=== PATIENT | male | born 1955 | race Caucasian/White ===

== ENCOUNTER → 2017-08-22 06:44 | Outpatient (CLI) | payer MEDICAID, SELFPAY ==
[2017-08-22 08:05] LABS: AST(SGOT) 23 U/L (15-37); Alanine Aminotransfer ALT/SGPT 34 U/L (16-61); Albumin, Serum 3.6 g/dL (3.2-5.0); Alkaline Phosphatase 121 U/L (45-117); Bilirubin, Direct 0.14 mg/dL (0.00-0.30); Cholesterol 113 mg/dL (200); Globulin 3.5 g/dL (2.2-4.2); High Density Lipoprotein 41 mg/dL; Protein, Total 7.1 g/dL (6.4-8.2); T4 Total, Thyroxin 8.7 ug/dL (4.5-12.1); Thyroid Stim Hormone (TSH) 3.04 uIU/mL (0.358-3.74); Triglycerides 151 mg/dL; Very Low Density Lipoprotein 30 mg/dL (5-40)
--- NOTE | 2017-08-22 13:27 | PFT ---
INTRODUCTION: The patient is a 62-year-old male currently under the care of Dr. Doherty the presents for pulmonary function testing secondary to a diagnosis of chest pain. Respiratory therapy reports good patient effort. Bronchodilators were used during testing. INTERPRETATION: Forced expiration spirometry demonstrates the presence of a mild large airways obstructive ventilatory defect. There was a significant bronchodilator response noted, based upon change in FEV1. Spirogram's are of good quality and do not plateau indicating slow emptying of the lungs. Body plethysmography was performed and reveals an increased TLC and RV, indicative of underlying hyperinflation and air trapping. Diffusing capacity by single breath CO is within normal limits. IMPRESSION: These pulmonary function studies demonstrate the presence of a partially reversible mild large airways obstructive ventilatory defect with associated hyperinflation and air trapping. There are no previous pulmonary function studies available for comparison.
== END ==
PROVIDERS: Visit Provider Internal Medicine Cardiovascular Disease
DX: R07.9 Chest pain, unspecified (principal); R94.31 Abnormal electrocardiogram [ECG] [EKG]; I25.3 Aneurysm of heart; F17.200 Nicotine dependence, unspecified, uncomplicated
CPT/HCPCS: 36415; 80061; 80076; 84436; 84443; 94060; 94726; 94729

== ENCOUNTER → 2017-09-23 09:38 | Outpatient (CLI) | payer MEDICAID, SELFPAY ==
--- NOTE | 2017-09-23 09:40 | STE_ITS ---
Reason For Study: CHEST PAIN Stress Results Protocol: Dobutamine Protocol Maximum Predicted HR: 157 bpm Target HR: 133 bpm% Maximum Predicted HR: 87 % DurationHeart Rate Stage (mm:ss) (bpm) BPDose BASELINE 66 126/75 STAGE 1 3:00 64 121/78 10.00 STAGE 2 3:00 10 6 136/76 20.00 STAGE 3 5:16 13 6 134/63651.00 RECOVERY 96 134/75 Stress Duration: 11:16 mm:ss Maximum Stress HR: 136 bpm Baseline Echocardiogram Findings The estimated ejection fraction is 50 %. Normal Stress Echo Wall motion Data Resting WMIntermediate WMStress WM Resting Wall Motion Wall Motion Stress No regional wall motion Anterio-Basal: Mildly abnormalities noted. hypokinetic. EKG Data Normal intervals are noted. The patient was titrated from 10 mcg to a maximun of 30 mcg of dobutamine during the stress. During dobutamine infusion, there were no ST or T wave changes noted to suggest ischemia. No clinical angina was noted. This was 89% of maximum predicted heart rate. Interpretation Summary The estimated ejection fraction is 50 %. Anterio-Basal: Mildly hypokinetic The patient was titrated from 10 mcg to a maximun of 30 mcg of dobutamine during the stress. Abnormal, adequate, dobutamine echocardiogram. Baseline global LV dysfunction with an EF of 50%. Positive for ischemia by echocardiographic criteria. Patient developed proximal mid anterior hypokinesis during infusion. This was seen in 2 views. No associated EKG changes. Appropriate blood pressure response to dobutamine. Rare PVCs noted. Final LVEF of 65%. Ordering Physician: Fabian Doherty Referring Physician: Fabian Doherty Performed By: Vinnie Valle RCS
== END ==
PROVIDERS: Visit Provider Internal Medicine Cardiovascular Disease
DX: R07.9 Chest pain, unspecified (principal); R94.31 Abnormal electrocardiogram [ECG] [EKG]; F17.200 Nicotine dependence, unspecified, uncomplicated
CPT/HCPCS: 93017; 93350; J7030; A4216

== ENCOUNTER 2017-10-06 07:02 | Day surgery (SDC) | payer MEDICAID, SELFPAY ==
--- NOTE | 2017-10-03 14:45 | RAD_ITS ---
STUDY: X-RAY CHEST REASON FOR EXAM: Male, 62 years old. Chest pain TECHNIQUE: PA and lateral views of the chest. COMPARISON: Prior study of 04/08/2015 FINDINGS: There is hyperinflation of the lungs consistent with chronic obstructive lung disease (COPD). There is no demonstrated pleural abnormality. Normal size heart. Normal mediastinum and mariluz. Normal visualized pulmonary arteries. There are calcified plaques of the aortic arch. Normal visualized thoracic spine. Normal visualized ribs, clavicles, and shoulders. There is no demonstrated abnormality of the visualized soft tissue structures of the upper abdomen. RAD/Chest PA and Lateral IMPRESSION: Findings consistent with COPD. Calcified plaques of the aortic arch. No acute cardiopulmonary disease process is seen. Chest findings are similar to the previous study. Electronically Signed: Anastacio Pérez MD at 21:07 EDT , Service support ,
[2017-10-03 16:37] LABS: Absolute Lymphocyte Count 2.18 X10^3/ul (0.83-4.51); Absolute Neutrophil Count 3.9 X10^3/uL (2.0-7.7); Basophil# 0.05 X10^3/uL; Basophil% 0.7 % (0-1); Eosinophils% 10.5 % (0-5); Hemoglobin 14.1 g/dl (13.0-16.5); Lymphocyte # 2.18 X10^3/ul (4.0); Lymphocyte % 28.5 % (19-41); Mean Corp Hgb Conc 33.6 g/gl (32-36); Mean Corpuscular Hgb 31.6 pg (27.0-32.0); Mean Corpuscular Volume 94.2 fL (80-94); Mean Platelet Vol. 10.4 fl (6.2-12.0); Monocyte# 0.66 X10^3/uL; Monocyte% 8.6 % (0-10); Neutrophil # 3.94 X10^3/uL (2.7-7.7); Neutrophil % 51.6 % (47-70); Platelet Count 254 K/mm3 (150-450); RBC Distribution Width CV 12.9 % (11.6-14.6); RBC Distribution Width SD 43.3 fl (35.1-43.9); Red Blood Count 4.46 M/mm3 (4.6-6.2); White Blood Count 7.6 K/mm3 (4.4-11.0)
[2017-10-03 16:54] LABS: POSITIVE COUNT NO; POSITIVE DIFFERENTIAL NO; POSITIVE MORPHOLOGY NO
[2017-10-03 16:55] LABS: Anion Gap 5 (5-15); BUN 10 mg/dL (7-18); BUN/Creat Ratio 11.7 RATIO (10-20); Calcium,Total 8.3 mg/dL (8.5-10.1); Chloride 108 mmol/L (98-107); Creatinine, Serum 0.86 mg/dL (0.70-1.30); EST Glomerular Filtration Rate 96 mL/min (>60); Est Glom Filt Rate - Afr Amer 116 mL/min (>60); Glucose 83 mg/dL (74-106); Potassium 3.9 mmol/L (3.5-5.1); Sodium Level 142 mmol/L (136-145)
[2017-10-03 17:09] LABS: International Normalized Ratio 1.1; Prothrombin Time (Protime)PT. 14.3 SECONDS (11.7-14.9)
[2017-10-03 17:10] LABS: Partial Thromboplast Time 32.1 Seconds (24.1-36.2)
[2017-10-04 09:05] VITALS: BMI 21.4
[2017-10-06] VITALS (21 sets, daily range): BP systolic 95–125; BP diastolic 40–78; PULSE 46–69; RESP 10–20; TEMP 36.4–36.6; O2SAT 96–100; BMI 22.4
--- NOTE | 2017-10-06 10:06 | CL.I_ITS ---
Patient Name: RADHA BRENNAN Study Date: 10/06/2017 Performing: Fabian Doherty MD Ht: 68.89 inches 175 cm : 1955 Wt: 145.51 lbs 66 kg Age: 62 Gender: male BSA: 1.8 PROCEDURE(S) PERFORMED [id number]/LV [id number] W OR WO PTCA, SINGLE CORONARY ARTERY [id number] W OR WO PTCA, EACH ADD'L ARTERY, SAME MAJOR [id number], CORONARY OR GRAFT, INITIAL VESSEL [id number], CORONARY OR GRAFT, EACH ADD'L VESSEL CLINICAL PROFILE AND CO-MORBIDITIES Indications: New Onset Angina <= 2 months, Worsening Angina, Suspected CAD Heart Failure: None Stress/Imaging Stress Echocardiogram: Yes Result: Positive Intermediate Risk Stress Echocardiogra m: Positive Intermediate Risk Angina Classification Anginal Classification w/in 2 Weeks: CCS III CAD Presentations: Unstable angina. Comorbidities/Risk Factors: Current/Recent Smoker (< 1year) Hypertension Dyslipidemia CONCLUSIONS Single vessel CAD of the LAD AND DIAG Normal LV size, wall motion,and systolic function Successful PTCA/LOPEZ of the of mid LAD after abnormal FFR of 0.82, in face of exertional angina and ab nl stress echo, using a 3.0 x 32 Promus Synergy, post dilated with a 3.0 x 12 NC balloon; 75%-->0%, n o dissection. Successful PTCA/LOPEZ of the of proximal DIAG, after abnl FFR of 0.79, utilizing a 2.5 x 16 Promus Syne rgy; 75%-->0%, no dissection. RECOMMENDATIONS Referred for immediate PCI Highly recommend quitting all tobacco products Follow up with primary almond sorter Risk factor modification ASA Indefinitley Plavix for at least 12 months Routine post interventional care Refer for Outpatient Cardiac Rehab Manual sheath removal per protocol Follow up with Dr. Doherty DESCRIPTION OF PROCEDURE The patient arrived to the procedure lab. The risks and benefits of the procedure as well as a full d escription of our services here and lack of surgical backup were fully explained to the patient and/o r their significant other prior to the catheterization. The Timeout was completed, verifying the aga ect patient and procedure. The patient's procedural site was prepped and draped in the usual fashion. Local anesthetic was given subcutaneously to right groin region with Lidocaine 2%. Using a modified Seldinger technique, arterial access was obtained via the right femoral artery, a 4Fr sheath was inse rted. Left Coronary Artery selective angiography was performed in multiple views using a 4 Fr. JL5 c atheter. Right Coronary Artery selective angiography was then performed in multiple views using a 4 F r. 3DRC catheter. Left Ventriculography was performed in AGUILAR projection using a 4 Fr. Pigtail cathete r Arterial sheath was exchanged for a 6 Fr Sheath. EBU 3.5 Guide catheter was inserted and engaged into the LCA. The FFR/iFR wire was inserted. Pressures and FFR/iFR were then recorded. FFR Ratio Baseline : 0.97 FFR Ratio post Adenosine: 0.82 universal bmw Guide wire was advanced to the LAD. 2.0 x 12 james ge Balloon catheter was inserted. Balloon catheter was advanced across lesion in the 2nd diag, proxim al PTCA balloon inflated at 8 atms for 16 secs. PTCA balloon inflated at 10 atms for 17 secs. Angiogr am performed post balloon dilatation. 2.0 x 12 emerge Balloon catheter was reinserted Balloon cathete r was advanced across lesion in the LAD, mid. PTCA balloon inflated at 6 atms for 7 secs. PTCA balloo n inflated at 8 atms for 10 secs. Angiogram performed post balloon dilatation. 3.0 x 32 Synergy Drug Eluting stent was inserted. Drug Eluting stent was advanced across the lesion in the LAD, mid. Angiog truman performed pre stent deployment. Angiogram performed post stent deployment. The FFR/iFR wire was i nserted. FFR Ratio Baseline: 0.93 FFR Ratio post Adenosine: 0.90 Guide wire was repositioned to the L AD 2.50 x 12 Emerge Balloon catheter was inserted. Balloon catheter was advanced across lesion in the second diagonal, proximal PTCA balloon inflated at 6 atms for 30 secs. PTCA balloon inflated at 6 at ms for 12 secs. Angiogram performed post balloon dilatation. 2.5 x 16 Synergy Drug Eluting stent was inserted. Drug Eluting stent was advanced across the lesion in the second diagonal, proximal Angiogra m performed pre stent deployment. 3.0 x 12 NC Emerge Balloon catheter was inserted and advanced acros s lesion in the LAD, mid. Angiogram performed post balloon dilatation. The arterial sheath was sutu red in place and capped CORONARY ANGIOGRAPHY DOMINANCE: Right Dominant LEFT HEART ASSESSMENT Left Ventricular Ejection Fraction: by LV Gram 65 % Normal Left Ventricular systolic function Normal Left Ventricular End Diastolic Pressure Normal LV wall motion LEFT MAIN: Angiographically normal LEFT ANTERIOR DECENDING ARTERY: MID LAD: 75 % Stenosis DIAGONAL 2: Proximal - 75 % Stenosis CIRCUMFLEX ARTERY: Mild luminal irregularities less than 30% RIGHT CORONARY ARTERY: Mild luminal irregularities less than 30% INTERVENTION INFORMATION LESION SITE: 2nd Diagonal (Proximal) Lesion Complexity: High/C, lesion at bifurcation: Yes, thrombus present: No, lesion length: 32 mm, cu lprit lesion: Yes Pre Stenosis: 75 % Pre intervention GOPAL flow: 3 PROCEDURE: FFR, Drug Eluting Stent with pre and post dilatation Post Stenosis: 0 % Post intervention GOPAL flow: 3 Lesion Devices: Medtronic 6 Fr EBU3.5 100cm Guide Catheter Garcia .014 BMW [place] Straight 190cm Henrique Sci EMERGE MR 2.00x12 BALLOON Henrique Sci EMERGE MR 2.50x12 BALLOON Henrique Sci Synergy MR LOPEZ 2.50x16 LESION SITE: 2nd Diagonal (Proximal) Lesion Complexity: High/C, lesion at bifurcation: Yes, thrombus present: No, lesion length: 16 mm, cu lprit lesion: No Pre Stenosis: 75 % Pre intervention GOPAL flow: 3 PROCEDURE: FFR Drug Eluting Stent with pre dilatation. Post Stenosis: 0 % Post intervention GOPAL flow: 3 Lesion Devices: Medtronic 6 Fr EBU3.5 100cm Guide Catheter Cunningham Coronary FFR Wire Garcia .014 BMW [place] Straight 190cm Henrique Sci EMERGE MR 2.00x12 BALLOON Henrique Sci Synergy MR LOPEZ 3.00x32 Henrique Sci NC EMERGE MR 3.00x12 BALLOON COMPLICATIONS No Complications PROCEDURE MEDICATIONS Versed 1 mg IV Oxygen: 2 L/min via nasal cannula Baby Aspirin (81mg) 1 Tabs PO @ 10/06/2017 07:24:57 Heparin 6000 unit(s) IV 10/06/2017 09:05:07 Nitro 200 mcg IC 10/06/2017 09:08:00 Nitro 200 mcg IC 10/06/2017 09:08:00 Nitro 200 mcg IC 10/06/2017 09:21:35 Nitro 200 mcg IC 10/06/2017 09:27:27 Nitro 200 mcg IC 10/06/2017 09:38:54 IV Bolus: .9 NaCl 800 ml total 10/06/2017 09:54:34 IV Fluids: .9 NaCl decreased to 150 ml/hr 10/06/2017 09:54:44 SUMMARY OF HEMODYNAMIC DATA Time AIR REST ECG 07:23:25 AO 111/65 (84) SA 08:53:40 LV 122/-12, 5 09:00:34 LV 111/-12, 8 09:00:44 LVp 108/-13, 5 09:00:52 AOp 109/57 (77) 09:00:57 ECG 10:01:31 Signed By Fabian Doherty MD On 10/06/2017 10:06:20 Signed By Fabian Doherty MD On 10/06/2017 10:05:41 Fabian Doherty MD
--- NOTE | 2017-10-06 11:40 | EKG12_ITS ---
Test Reason : POST STENT Blood Pressure : / mmHG Vent. Rate : 052 BPM Atrial Rate : 052 BPM P-R Int : 178 ms QRS Dur : 096 ms QT Int : 466 ms P-R-T Axes : 079 -11 065 degrees QTc Int : 433 ms Sinus bradycardia Septal infarct , age undetermined, cannot be excluded Abnormal ECG Confirmed by GORDO WOODWARD, KAYLYNN ([id number]), editor in chief newspaper GAGAN CASTANEDA ([id number]) on 10/13/2017 2:18:33 PM Referred By: Fabian Doherty Confirmed By:KAYLYNN CARO MD
[2017-10-06] MEDS: 0.9% Normal Saline 1,000 ML 150 ML IV (11:54)
--- NOTE | 2017-10-06 12:57 | CRPHASE1 ---
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 Clerk:: Fabian Doherty Surgeon:: [employer]ER Risk Factors/Lifestyle Smoking Status: Current every day smoker - 2 PPD Packs Smoked per Day: 2 Hx Hypertension: No - STATES DOES NOT HAVE Hx Diabetes Mellitus Type 1: No Hx Metabolic Disorders: No Hx Dyslipidemia: No - STATES DOES NOT HAVE Hx Obesity: No Height: 1.73 m Weight:: 67 kg BMI: 22.4 Stress: Long-standing, Home/Family - LOSS OF MOTHER, STEP MOM AND IN PAST 3 YEARS ETOH: No Family History: Heart Disease Past Cardiac Illness: Coronary Artery Disease, Myocardial Infarction Phase I Education Given On:: [place], Antiplatelet medication Medical/Surgical History [place]:: Yes Angina:: Yes CAD:: Yes Pulmonary:: Yes - COPD Diabetes:: No Hypertension:: No - DENIES Dyslipidemia:: No - DENIES Arthritis:: Yes Renal:: No Thyroid:: No PTCA:: Yes Discharge/Home/Social Eval Discharge Disposition: Home Marital Status:
--- NOTE | 2017-10-06 13:03 | CRPHASE1_ITS ---
Patient Data/Charges Former Patient:: Phase I - PHASE I CR COMPLETED Insurance #2:: [employer] Cushion Mat Maker:: Fabian Doherty Surgeon:: KHUSHBOO THACKER Risk Factors/Lifestyle Smoking Status: Current every day smoker - 2 PPD Packs Smoked per Day: 2 Hx Hypertension: No - STATES DOES NOT HAVE Hx Diabetes Mellitus Type 1: No Hx Metabolic Disorders: No Hx Dyslipidemia: No - STATES DOES NOT HAVE Hx Obesity: No Height: 1.73 m Weight:: 67 kg BMI: 22.4 Stress: Long-standing, Home/Family - LOSS OF MOTHER, STEP MOM AND IN PAST 3 YEARS ETOH: No Family History: Heart Disease Past Cardiac Illness: Coronary Artery Disease, Myocardial Infarction Phase I Education Given On:: [place], Antiplatelet medication Medical/Surgical History [place]:: Yes Angina:: Yes CAD:: Yes Pulmonary:: Yes - COPD Diabetes:: No Hypertension:: No - DENIES Dyslipidemia:: No - DENIES Arthritis:: Yes Renal:: No Thyroid:: No PTCA:: Yes Discharge/Home/Social Eval Discharge Disposition: Home Marital Status:
--- NOTE | 2017-10-06 13:03 | CRPH1.INSTRU ---
General Education CAD and cardiac anatomy and function:: Not instructed Explanation of diagnoses and procedures:: Not instructed Sign/Symptoms of ID:: Not instructed Antiplatelet therapy: Patient communicates acknowledgment - CONT PLAVIX PRESCRIBED, Family communicates acknowledgment, Needs reinforcement Proper use of NTG-SL: Not instructed Emergency procedures and activation of EMS: Patient communicates acknowledgment - INSTRUCTED TO CALL 911 IF EXPERIENCE ANY FURTHER SYMPTOMS, Needs reinforcement Compliance of all prescribed medications: Not instructed Smoking Patient Nicotine/Smoking Risk Factors Are:: Cigarettes Nicotine/Smoking Response Code:: Not instructed Dyslipidemia Dyslipidemia Response Code:: Not instructed Overweight/Obesity Patient Overweight/Obesity Risk Factors Are:: BMI Normal [18-25 & < 65 years old] Hypertension Patient Hypertension Risk Factors Are:: No documented hx of HTN - PT DENIES ANY HX OF HTN Heart Disease Patient Heart Disease Risk Factors Are:: Family history of heart disease < 65 years old, Previous cardiac event - PT STATES HE HAD A MILD HEART ATTACK IN 2007 Heart Disease Response Code:: Not instructed Diabetes Patient Diabetes Risk Factors Are:: No documented hx of diabetes Metabolic Syndrome Metabolic Syndrome Response Code:: Not instructed Sedentary Sedentary Response Code:: Not instructed Stress Stress Response Code:: Patient communicates acknowledgment, Needs reinforcement - PT SHARED HAS HAD LOSS OF SPOUSE, MOTHER AND STEP MOM IN LAST 3 YEARS
--- NOTE | 2017-10-06 13:08 | CRPH1.INST_ITS ---
General Education CAD and cardiac anatomy and function:: Not instructed Explanation of diagnoses and procedures:: Not instructed Sign/Symptoms of HI:: Not instructed Antiplatelet therapy: Patient communicates acknowledgment - CONT PLAVIX PRESCRIBED, Family communicates acknowledgment, Needs reinforcement Proper use of NTG-SL: Not instructed Emergency procedures and activation of EMS: Patient communicates acknowledgment - INSTRUCTED TO CALL 911 IF EXPERIENCE ANY FURTHER SYMPTOMS, Needs reinforcement Compliance of all prescribed medications: Not instructed Smoking Patient Nicotine/Smoking Risk Factors Are:: Cigarettes Nicotine/Smoking Response Code:: Not instructed Dyslipidemia Dyslipidemia Response Code:: Not instructed Overweight/Obesity Patient Overweight/Obesity Risk Factors Are:: BMI Normal [18-25 & < 65 years old ] Hypertension Patient Hypertension Risk Factors Are:: No documented hx of HTN - PT DENIES ANY HX OF HTN Heart Disease Patient Heart Disease Risk Factors Are:: Family history of heart disease < 65 years old, Previous cardiac event - PT STATES HE HAD A MILD HEART ATTACK IN 2007 Heart Disease Response Code:: Not instructed Diabetes Patient Diabetes Risk Factors Are:: No documented hx of diabetes Metabolic Syndrome Metabolic Syndrome Response Code:: Not instructed Sedentary Sedentary Response Code:: Not instructed Stress Stress Response Code:: Patient communicates acknowledgment, Needs reinforcement - PT SHARED HAS HAD LOSS OF SPOUSE, MOTHER AND STEP MOM IN LAST 3 YEARS
--- NOTE | 2017-10-06 17:19 | PCM.DC.CCA ---
Discharge Diet: Low fat/ Low Cholesterol Discharge Activity: Return to Normal Activity May shower in (days): 1 Lifting Restrictions: 10 pounds and also avoid any pushing or pulling for 3 days after your test. Additional Activity Instructions:: You must have someone drive you home. Do not drive until instructed by your doctor. You must have someone stay with you all night after your test. Rest in bed or on the couch until the next morning. Limit the number of times you go up and down stairs the day of your test. Call your doctor if your incision/area has: Continuous Slow Oozing, Sudden Increased Bleeding, Increased Pain/ Swelling, Increased Redness, Foul Smelling Discharge, Swelling at the incision site Call your doctor if you observe: Fever of 101 or Higher, Shortness of breath, Chest pain Remove Dressing in (days):: 1 Cleanse incision/area with: Soap & Water Additional Dressing/Incision Instructions:: Keep the dressing (bandage) on until the next morning. You may then shower, but do not take a tub bath for 5 days after your test. It is normal to have some tenderness and discomfort at the puncture site. Sometimes bruising also occurs. However, if pain, numbness, or coldness occurs below the puncture site (in your leg, toes, arms or fingers) call your doctor at once. You may have a small, marble sized knot at the puncture site. This is normal. Do not rub it. It will go away in 4-6 weeks. Bleeding can occur from the area where the puncture was done. Blood may spurt or drip from the site. If blood spurts, apply pressure right away to stop bleeding and call 911. Although rare, bleeding into the tissue (hematoma) can also occur. If this happens, a large, firm area goose egg under the skin will appear. If any of these occur, lie down as flat as you can and have someone apply firm pressure to the cath site with a gauze pad or a clean washcloth for 10-15 minutes. Call 911 or go to the Emergency Department. Additional Instructions: You will need to be on Plavix for at least one year prior to stopping. At your next office visit we will talk to you about cardiac rehab Allergies/Adverse Reactions: Allergies tuberculin, purified protein deriva Allergy (Verified 10/03/17 13:58) Swelling Medications to take at Discharge aspirin 81 mg tablet,delayed release 81 mg PO QDAY 08/01/17 atorvastatin 40 mg tablet 40 mg PO QHS tab 08/01/17 thiamine HCl (vitamin B1) 100 mg tablet 100 mg PO QDAY 08/01/17 doxepin 10 mg capsule 10 mg PO QHS 08/02/17 clopidogrel 75 mg tablet 75 mg PO QDAY #30 tab 10/03/17 levetiracetam 250 mg tablet 250 mg PO BID tab 10/03/17 Primary Care Physician: Esther Aguilar [Primary Care Provider] - Test Results: Test results from this visit will be discussed in further detail at your follow-up appointment, if applicable. Please Follow Up With: Tahir Mckee NP-C When: 10/25 at 1030 Cardiac Rehabilitation Info Cardiac Rehabilitation Program Information: Cardiac Rehabilitation is important for patients like you who are recovering from a heart problem. Cardiac rehabilitation programs are recognized as integral to the continued care of the patient with coronary heart disease. The cardiac rehabilitation program is designed to optimize a patient's physical, psychological, and social functioning. Health medicare nurse work in cardiac rehabilitation programs and assist you with getting the treatments you need to get stronger and healthier - like exercise, healthy eating habits, and medications. Cardiac rehabilitation has been show to help people with heart problems live longer and have better life enjoyment than people who do not go to cardiac rehabilitation. Please contact the Cardiac Rehabilitation Program at [facility] at in two weeks if you have not heard from them.
--- NOTE | 2017-10-06 17:22 | DCINST_ITS ---
Discharge Diet: Low fat/ Low Cholesterol Discharge Activity: Return to Normal Activity May shower in (days): 1 Lifting Restrictions: 10 pounds and also avoid any pushing or pulling for 3 days after your test. Additional Activity Instructions:: You must have someone drive you home. Do not drive until instructed by your doctor. You must have someone stay with you all night after your test. Rest in bed or on the couch until the next morning. Limit the number of times you go up and down stairs the day of your test. Call your doctor if your incision/area has: Continuous Slow Oozing, Sudden Increased Bleeding, Increased Pain/ Swelling, Increased Redness, Foul Smelling Discharge, Swelling at the incision site Call your doctor if you observe: Fever of 101 or Higher, Shortness of breath, Chest pain Remove Dressing in (days):: 1 Cleanse incision/area with: Soap & Water Additional Dressing/Incision Instructions:: Keep the dressing (bandage) on until the next morning. You may then shower, but do not take a tub bath for 5 days after your test. It is normal to have some tenderness and discomfort at the puncture site. Sometimes bruising also occurs. However, if pain, numbness, or coldness occurs below the puncture site (in your leg, toes, arms or fingers) call your doctor at once. You may have a small, marble sized knot at the puncture site. This is normal. Do not rub it. It will go away in 4-6 weeks. Bleeding can occur from the area where the puncture was done. Blood may spurt or drip from the site. If blood spurts, apply pressure right away to stop bleeding and call 911. Although rare, bleeding into the tissue (hematoma) can also occur. If this happens, a large, firm area goose egg under the skin will appear. If any of these occur, lie down as flat as you can and have someone apply firm pressure to the cath site with a gauze pad or a clean washcloth for 10-15 minutes. Call 911 or go to the Emergency Department. Additional Instructions: You will need to be on Plavix for at least one year prior to stopping. At your next office visit we will talk to you about cardiac rehab Allergies/Adverse Reactions: Allergies tuberculin, purified protein deriva Allergy (Verified 10/03/17 13:58) Swelling Medications to take at Discharge aspirin 81 mg tablet,delayed release 81 mg PO QDAY 08/01/17 atorvastatin 40 mg tablet 40 mg PO QHS tab 08/01/17 thiamine HCl (vitamin B1) 100 mg tablet 100 mg PO QDAY 08/01/17 doxepin 10 mg capsule 10 mg PO QHS 08/02/17 clopidogrel 75 mg tablet 75 mg PO QDAY #30 tab 10/03/17 levetiracetam 250 mg tablet 250 mg PO BID tab 10/03/17 Primary Care Physician: Esther Aguilar [Primary Care Provider] - Test Results: Test results from this visit will be discussed in further detail at your follow- up appointment, if applicable. Please Follow Up With: Tahir Mckee NP-C When: 10/25 at 1030 Cardiac Rehabilitation Info Cardiac Rehabilitation Program Information: Cardiac Rehabilitation is important for patients like you who are recovering from a heart problem. Cardiac rehabilitation programs are recognized as integral to the continued care of the patient with coronary heart disease. The cardiac rehabilitation program is designed to optimize a patient's physical, psychological, and social functioning. Health career development manager work in cardiac rehabilitation programs and assist you with getting the treatments you need to get stronger and healthier - like exercise, healthy eating habits, and medications. Cardiac rehabilitation has been show to help people with heart problems live longer and have better life enjoyment than people who do not go to cardiac rehabilitation. Please contact the Cardiac Rehabilitation Program at [facility] at in two weeks if you have not heard from them.
[2017-10-06] MEDS: levETIRAcetam 250 MG Tablet PO (21:59)
[2017-10-06] MEDS: Doxepin Hydrochloride 10 MG Capsule PO (21:59)
[2017-10-06] MEDS: Atorvastatin Calcium 40 MG Tablet PO (21:59)
[2017-10-07] VITALS (12 sets, daily range): BP systolic 96–161; BP diastolic 53–88; PULSE 57–69; RESP 10–16; TEMP 36.7–36.9; O2SAT 95–96
[2017-10-07 04:52] LABS: Hematocrit 39.6 % (40-54); Hemoglobin 13.2 g/dl (13.0-16.5); Mean Corp Hgb Conc 33.3 g/gl (32-36); Mean Corpuscular Hgb 31.6 pg (27.0-32.0); Mean Corpuscular Volume 94.7 fL (80-94); Mean Platelet Vol. 10.1 fl (6.2-12.0); Platelet Count 224 K/mm3 (150-450); RBC Distribution Width SD 43.9 fl (35.1-43.9); Red Blood Count 4.18 M/mm3 (4.6-6.2); Scan Indicated on CBC? Y/N NO; White Blood Count 7.1 K/mm3 (4.4-11.0)
[2017-10-07] MEDS: levETIRAcetam 250 MG Tablet PO (09:10)
[2017-10-07] MEDS: Clopidogrel Bisulfate 75 MG Tablet PO (09:10)
[2017-10-07] MEDS: Thiamine Hydrochloride 100 MG Tablet PO (09:10)
[2017-10-07] MEDS: Aspirin E.C. 81 MG Tablet PO (09:10)
--- NOTE | 2017-10-07 09:58 | PN.CARD_ITS ---
Subjectve: Patient doing very well this morning. In fact feels much better. Right groin is clean/dry/intact, no thrills, bruits or hematoma. Hemoglobin and creatinine are within nominal limits. 2+ DP PT pulses bilaterally. EKG shows normal sinus rhythm, no acute changes. Objective: Vital Signs Temp Pulse Resp BP Pulse Ox 98.4 F 60 16 161/88 H 95 10/07/17 09:36 10/07/17 09:36 10/07/17 09:36 10/07/17 09:36 10/07/17 09:36 Oxygen Flow Rate (L/min) 2 Oxygen Delivery Method Room Air Weight: 147 lb 11.355 oz Body Mass Index (BMI) 22.4 Intake and Output for Last 24 Hours 10/05/17 10/06/17 10/07/17 23:59 23:59 23:59 Intake Total 1963 / 1963 240 / 240 Output Total 1200 / 1200 525 / 525 Balance 764 / 764 -285 / -285 General: Awake, Alert, Oriented x 3 HEENT: PERRL, EOMI, Sclera Non Icteric Neck: Supple, Good ROM, No Lymph Node Enlargement Lungs: Clear to auscultation Cardiovascular: Regular Rhythm, Normal S1, Normal S2, No Murmurs, No Rubs, No Gallops Vascular: No Carotid Bruits, Normal Femoral Pulses, Normal Radial Pulses, Normal Dorsalis Pedal Pulse, Normal Posterior Tibial Pulses Abdomen: Bowel Sounds Present, Soft, Non Tender, No HSM, No Organomegaly Extremities: No Cyanosis, No Clubbing, No edema Neurological: No Focal Motor or Sensory Deficit 10/07/17 04:15: WBC 7.1, RBC 4.18 L, Hgb 13.2, Hct 39.6 L, MCV 94.7 H, MCH 31.6 , MCHC 33.3, RDW 13.0, RDW Differential 43.9, Plt Count 224, MPV 10.1 Rhythm: EKG: ECHO: Stress Test: Cardiac Cath: PCI: CT Surgery: Holter monitor: EPS: PPM: CXR: Chest CT Scan: Medical Necessity - Tobacco Use Smoking Status: Current every day smoker - 2 PPD Assessment/Plan 1. Coronary artery disease: Patient status post complex angioplasty and stenting of his mid LAD and proximal diagonal #2. Patient feels much better today. His groin is clean/dry/intact. Hemoglobin is stable. Recommend the patient continue baby aspirin, Plavix, and Lipitor. Patient's heart rate is too slow for beta blockers at this time. He will follow-up with me going forward. We will make arrangements for cardiac rehab. If his blood pressure increases we can consider Cozaar based medication. 2. Hyperlipidemia: Repeat lipid profile in 6 weeks time. His LDL should be less than 70. 3. Patient may be discharged home. Code Visit Inpatient E&M: 55919 Subs Hosp L2
--- NOTE | 2017-10-07 10:00 | EKG12_ITS ---
Test Reason : AM EKG Blood Pressure : / mmHG Vent. Rate : 063 BPM Atrial Rate : 063 BPM P-R Int : 146 ms QRS Dur : 106 ms QT Int : 452 ms P-R-T Axes : 076 -27 062 degrees QTc Int : 462 ms Normal sinus rhythm Septal infarct , age undetermined , cannot be excluded Abnormal ECG Confirmed by GORDO WOODWARD, KAYLYNN ([id number]), mapping editor GAGAN CASTANEDA ([id number]) on 10/13/2017 2:18:05 PM Referred By: Fabian Doherty Confirmed By:KAYLYNN CARO MD
[2017-10-07 22:55] LABS: Anion Gap 7 (5-15); BUN 11 mg/dL (7-18); Calcium,Total 7.7 mg/dL (8.5-10.1); Chloride 108 mmol/L (98-107); Creatinine, Serum 0.84 mg/dL (0.70-1.30); EST Glomerular Filtration Rate 97 mL/min (>60); Est Glom Filt Rate - Afr Amer 118 mL/min (>60); Glucose 92 mg/dL (74-106); Potassium 4.2 mmol/L (3.5-5.1); Sodium Level 142 mmol/L (136-145)
== END 2017-10-07 09:55 | disposition home or self-care (01) ==
LOC: CLSP 07:04 → ICU 09:47
PROVIDERS: Visit Provider Internal Medicine Cardiovascular Disease
DX: I25.10 Atherosclerotic heart disease of native coronary artery without angina pectoris (principal); E78.5 Hyperlipidemia, unspecified; I10 Essential (primary) hypertension; M54.9 Dorsalgia, unspecified; G89.29 Other chronic pain; R94.39 Abnormal result of other cardiovascular function study; R07.9 Chest pain, unspecified; F17.210 Nicotine dependence, cigarettes, uncomplicated; Z86.73 Personal history of transient ischemic attack (TIA), and cerebral infarction without residual deficits
CPT/HCPCS: 36415; 71046; 80048; 85025; 85027; 85610; 85730; 92928; 92929; 93005; 93458; 93571; 93572; 99152; 99153; J0153; J7030; J7040; C1725; C1769; C1874; C1887; C1894; C9600; C9601; Q9967

== ENCOUNTER → 2018-01-13 13:43 | Outpatient (CLI) | payer MEDICAID, SELFPAY ==
[2017-10-06 13:03] VITALS: BMI 22.4
--- NOTE | 2018-01-13 13:47 | RAD_ITS ---
STUDY: X-RAY - LUMBAR SPINE REASON FOR EXAM: Male, 62 years old. LBP RADIATES INTO LEFT LEG, RECENT STROKE, RECENT STENTS, RECENT SEIZURES, HX FALL TECHNIQUE: 3 view(s) of the lumbar spine were obtained. COMPARISON: None FINDINGS: Normal lumbar lordosis. There is no substantial scoliosis. There is a normal alignment of the vertebrae. There is multilevel endplate spondylosis of the lumbar vertebrae. There is multi-level degenerative disc disease with multi-level disc space narrowing. There are atherosclerotic vascular calcifications. The soft tissue structures are unremarkable. RAD/Lumbar Spine 2 or 3 Views IMPRESSION: Degenerative changes of the spine, as detailed above. Electronically Signed: Aubrey Adams MD at 22:01 EDT , Service support ,
--- NOTE | 2018-01-13 13:47 | RAD_ITS ---
STUDY: X-RAY - SACRUM/COCCYX REASON FOR EXAM: Male, 62 years old. LBP RADIATES INTO LEFT LEG, RECENT STROKE, RECENT STENTS, RECENT SEIZURES, HX FALL TECHNIQUE: 3 view(s) of the sacrum and coccyx were obtained. COMPARISON: None. FINDINGS: Normal bilateral sacroiliac joints. Normal visualized sacral ala and fused sacral bodies. Normal sacrococcygeal junction with a normal angulation. Normal coccygeal segments. The presacral soft tissue structures are unremarkable. RAD/Sacrum-Coccyx min 2 Views IMPRESSION: Normal x-rays of the sacrum and coccyx. Electronically Signed: Aubrey Adams MD at 22:01 EDT , Service support ,
== END ==
PROVIDERS: Referring Provider Nurse Practitioner Family; Visit Provider Nurse Practitioner Family
DX: M54.5 Low back pain (principal)
CPT/HCPCS: 72100; 72220

== ENCOUNTER 2018-01-23 22:00 | Observation (INO) | payer MEDICAID, SELFPAY ==
[2017-10-06 13:03] VITALS: BMI 22.4
[2018-01-23 22:01] VITALS: BP 104/56; PULSE 58; RESP 17; TEMP 36.8; O2SAT 99; BMI 22.4
--- NOTE | 2018-01-23 22:03 | ED.RN ---
CALLED FOR EKG PER RN REQUEST, PULLED OLD EKGS FOR
--- NOTE | 2018-01-23 22:06 | EKG12_ITS ---
Test Reason : CP Blood Pressure : / mmHG Vent. Rate : 062 BPM Atrial Rate : 062 BPM P-R Int : 152 ms QRS Dur : 100 ms QT Int : 408 ms P-R-T Axes : 079 032 069 degrees QTc Int : 414 ms Normal sinus rhythm Septal infarct , age undetermined Abnormal ECG Confirmed by GORDO WOODWARD, KAYLYNN ([id number]), loan expeditor GAGAN CASTANEDA ([id number]) on 01/25/2018 1:30:38 PM Referred By: Barbara Kimball Confirmed By:KAYLYNN CARO MD
[2018-01-23 22:09] VITALS: O2SAT 97
--- NOTE | 2018-01-23 22:10 | RAD_ITS ---
STUDY: X-RAY CHEST REASON FOR EXAM: Male, 62 years old. Left chest pain, shortness of breath TECHNIQUE: Frontal views of the chest were obtained. COMPARISON: October 03, 2017 FINDINGS: The lungs are hyperinflated. There is a stable calcified granuloma in the right lung apex. There are no focal airspace opacities. There is no demonstrated pleural abnormality. The cardiac silhouette is normal in size. The mediastinum and hilar regions are unremarkable. Normal visualized pulmonary arteries. Normal visualized aortic arch and descending thoracic aorta. There is mild scoliosis of the visualized spine. The visualized ribs, clavicles, and shoulders are unremarkable. There is no demonstrated abnormality of the visualized upper abdomen. RAD/Chest 1 View (Portable) IMPRESSION: No acute cardiopulmonary abnormalities. There is stable COPD. Electronically Signed: Nina Lam MD at 22:46 EDT Tel Direct: [phone], Service support ,
[2018-01-23 22:20] LABS: Absolute Lymphocyte Count 2.55 X10^3/ul (0.83-4.51); Absolute Neutrophil Count 3.8 X10^3/uL (2.0-7.7); Basophil# 0.02 X10^3/uL; Basophil% 0.3 % (0-1); Hematocrit 39.6 % (40-54); Hemoglobin 13.2 g/dl (13.0-16.5); Lymphocyte # 2.55 X10^3/ul (4.0); Mean Corp Hgb Conc 33.3 g/gl (32-36); Mean Corpuscular Hgb 31.1 pg (27.0-32.0); Mean Corpuscular Volume 93.2 fL (80-94); Mean Platelet Vol. 9.9 fl (6.2-12.0); Monocyte# 0.82 X10^3/uL; Monocyte% 10.9 % (0-10); Neutrophil % 50.7 % (47-70); Platelet Count 241 K/mm3 (150-450); RBC Distribution Width CV 13.5 % (11.6-14.6); RBC Distribution Width SD 45.8 fl (35.1-43.9); Red Blood Count 4.25 M/mm3 (4.6-6.2); White Blood Count 7.5 K/mm3 (4.4-11.0)
[2018-01-23 22:24] LABS: POSITIVE COUNT NO; POSITIVE DIFFERENTIAL NO; POSITIVE MORPHOLOGY NO
[2018-01-23 22:40] LABS: Anion Gap 11 (5-15); BUN 17 mg/dL (7-18); BUN/Creat Ratio 17.2 RATIO (10-20); Calcium,Total 8.6 mg/dL (8.5-10.1); Chloride 105 mmol/L (98-107); Creatinine, Serum 0.99 mg/dL (0.70-1.30); EST Glomerular Filtration Rate 81 mL/min (>60); Est Glom Filt Rate - Afr Amer 98 mL/min (>60); Estimated Creatinine Clearance 72.16 ml/min; Glucose 94 mg/dL (74-106); Potassium 3.6 mmol/L (3.5-5.1); Sodium Level 140 mmol/L (136-145)
--- NOTE | 2018-01-23 23:05 | ED.VISSUMM ---
- ER Visit Summary Date of Service: 01/23/18 Chief Complaint: Chest pain History of Present Illness: The patient is a 62 M history of CAD with 3 cardiac stents in October of this year. Prior CVA and seizures. Patient states after his cardiac stents in October has been doing well. He has had very limited chest pain. Tonight around 20 1:10 PM he had a 20-minute episode of left-sided chest pain radiating down his left arm. He was brought in by squad who gave him 4 baby aspirin and 1 sublingual nitro that completely resolved his pain. Currently he states he is pain-free. He denies any leg pain or swelling. No history of DVT or PEs. He is on both Plavix and aspirin. Physical Examination: Well-appearing male. Vital signs are stable afebrile. Pulse ox 9 9% on 2 L no hypoxia. H EENT exam unremarkable. Neck nontender. Lungs clear to auscultation bilaterally. Chest wall nontender. Heart regular rate and rhythm no murmur. Cords. Neurologically is awake and alert with no focal motor deficits. Test Results: CBC normal. White count of 7. Hemoglobin 13. Electrolytes unremarkable. Normal gap and creatinine. Troponin normal. EKG sinus rhythm rate of 62 with no acute signs of [place] nor ischemia. Unchanged from September of this year. Chest x-ray portable one view shows no acute abnormality. Emergency Department Course and Treatment: On repeat exam the patient is doing well at 2302. He remains pain-free and symptom-free after the sublingual nitro by squad. Due to his history and recent stents in light that this is worsening pain in these had and similar to his prior cardiac pain I will speak to the hospitalist about overnight observation and repeat troponin. Treatment Plan: Observation admission for hospitalist. Disposition: Observation Impression: Acute chest pain of uncertain etiology resolved by nitroglycerin History of CAD with 3 cardiac stents This note was generated with [employer] dictation software. It may contain incorrect words, spelling, and punctuation that were not noted in review of the chart prior to signing ED Disposition - Plan for ED Patient: Chief Complaint: Chest Pain Referrals: [facility],Esther Trotter [Primary Care Provider] -
--- NOTE | 2018-01-23 23:06 | HP.PCM_ITS ---
Problem List (1) Chest pain Status: Acute Qualifiers: Chest pain type: unspecified Qualified Code(s): R07.9 - Chest pain, unspecified (2) Abnormal electrocardiogram Status: Chronic History of Present Illness Date of Admission: 01/23/18 Chief Complaint: Chest pain The patient is a 62 year old M with a significant history of CVA; epilepsy; CAD with stents placed in October 2017 and on dual antiplatelet therapy who presents with left-sided progressively worsening excruciating stabbing chest pain a few hours to his admission. His chest pain radiates to his left arm. Also he had numbness and tingling in fingers of his bilateral hands. Further he reported lightheadedness. His chest pain started while he was making coffee for his son. Patient was brought in by paramedics. In route to the emergency department paramedics gave patient nitroglycerin and aspirin which completely took his pain away. He denies any nausea, vomiting or diaphoresis. He reports that he felt very warm with team. EKG did not show any changes from previous EKG in October. His initial troponin was negative. Past Medical History Past Medical History (Chronic Problems): Chronic Problems (Last Reviewed 01/23/18 @ 23:43 by Gregorio Bingham MD) Hyperlipidemia (Chronic) Atherosclerotic heart disease of [place] coronary artery without angina pectoris (Chronic) 3.0 X 32 mm Synergy LOPEZ to mid LAD; 2.5 x 16 MM Synergy LOPEZ to second diagonal per Dr. Doherty @ [facility] Stented coronary artery (Chronic 10/06/17) 3.0 X 32 mm Synergy LOPEZ to mid LAD; 2.5 x 16 MM Synergy LOPEZ to second diagonal per Dr. Doherty @ [facility] Abnormal stress echo (Chronic) Atrial septal aneurysm (Chronic) Abnormal electrocardiogram (Chronic) Nicotine dependence (Chronic) Medical History: Medical History (Last Reviewed 01/23/18 @ 23:43 by Gregorio Bingham MD) Atherosclerotic heart disease of [place] coronary artery without angina pectoris (Chronic) I25.10 3.0 X 32 mm Synergy LOPEZ to mid LAD; 2.5 x 16 MM Synergy LOPEZ to second diagonal per Dr. Doherty @ [facility] Abnormal stress echo (Chronic) R94.39 Chest pain (Acute) R07.9 Atrial septal aneurysm (Chronic) I25.3 Abnormal electrocardiogram (Acute) R94.31 Nicotine dependence (Chronic) F17.200 CVA (cerebral vascular accident) I63.9 MCA Infarct Chronic back pain M54.9, G89.29 Seizure R56.9 Allergies tuberculin, purified protein deriva Allergy (Verified 01/23/18 22:01) Swelling bumble bee stings Allergy (Severe, Uncoded 01/23/18 22:01) Anaphylaxis Home Medications: Ambulatory Orders Medication Instructions Recorded aspirin 81 mg tablet,delayed 81 mg PO QDAY 08/01/17 release atorvastatin 40 mg tablet 40 mg PO QHS tab 08/01/17 thiamine HCl (vitamin B1) 100 mg 100 mg PO QDAY 08/01/17 tablet doxepin 10 mg capsule 10 mg PO QHS 08/02/17 clopidogrel 75 mg tablet 75 mg PO QDAY #30 tab 10/03/17 levetiracetam 250 mg tablet 250 mg PO BID tab 10/03/17 Surgical History: Surgical History (Last Reviewed 01/23/18 @ 23:07 by Gregorio Bingham MD) Stented coronary artery (Chronic) Onset Date: 10/06/17 Z95.5 3.0 X 32 mm Synergy LOPEZ to mid LAD; 2.5 x 16 MM Synergy LOPEZ to second diagonal per Dr. Doherty @ [facility] History of lumbar puncture Onset Date: ~04/2017 Z98.890 finger surgery lymph node resection Surgical History: no surgical history Lives: With Family Smoking Status: Current every day smoker - *Family History Maternal Family History: Family History (Last Reviewed 01/24/18 @ 00:10 by Gregorio Bingham MD) Mother Myocardial infarction Brother Myocardial infarction History Items: - - mother with different types of cancer Paternal Family History: Family History (Last Reviewed 01/24/18 @ 00:10 by Gregorio Bingham MD) Mother Myocardial infarction Brother Myocardial infarction History Items: - - pneumonia and lung cancer Review of Systems Constitutional: Denies: Chills, Fever, Weight Change HEENT: Denies: Head Aches, Sinus Congestion, Sinus Drainage Cardiovascular: Reports: Chest Pain, Light Headedness. Denies: Palpitations Respiratory: Denies: Cough, Shortness of breath at rest, Sputum production Gastrointestinal: Denies: Abdominal Pain, Nausea, Vomiting Genitourinary: Denies: Dysuria Musculoskeletal: Reports: Arm Pain, Hand Pain. Denies: Joint Pain, Joint Tenderness Skin: Denies: Rash, Wounds Neurological: Reports: Numbness - Bilateral arms, Tingling - Bilateral arms. Denies: Focal weakness Psychiatric: Denies: Anxiety, Depression, Homicidal Ideations, Suicidal Ideations Hematologic/ Lymphatic: Denies: Easy Bruising, Easy Bleeding VTE Information - Inpt Only VTE Present on Admission: No VTE Mechan Device Prophylaxis: None VTE Pharm Prophylaxis ordered?: Yes - Physical Exam General: Alert, Oriented x3, Cooperative HEENT: Atraumatic, PERRLA, EOMI, Normocephalic Neck: Supple, No JVD, Negative Carotid Bruits Lungs: Clear to auscultation, Normal air movement Cardiovascular: No murmurs, Bradycardic - Mild Abdomen: Bowel Sounds Present, Soft, Non Tender Extremities: No edema, Capillary Refill Less than 3 Seconds Skin: No rashes, No breakdown Musculoskeletal: No Tenderness to Palpation of Joints or Extremities Neurological: Cranial nerves II-XII grossly intact Psych/Mental Status: Normal Affect, Appropriate Vital Signs Temp Pulse Resp BP Pulse Ox 98.3 F 58 L 17 104/56 L 97 01/23/18 22:01 01/23/18 22:01 01/23/18 22:01 01/23/18 22:01 01/23/18 22:09 Oxygen Flow Rate (L/min) 2 Oxygen Delivery Method Nasal Cannula Weight: 66.8 kg Body Mass Index (BMI) 22.4 Laboratory Tests Past 24 Hrs 01/23/18 01/23/18 22:05 22:05 WBC 7.5 RBC 4.25 L Hgb 13.2 Hct 39.6 L MCV 93.2 MCH 31.1 MCHC 33.3 RDW 13.5 RDW Differential 45.8 H Plt Count 241 MPV 9.9 Immature Gran % (Auto) 0.100 Neut % (Auto) 50.7 Lymph % (Auto) 34.0 [place] % (Auto) 10.9 H Eos % (Auto) 4.0 Baso % (Auto) 0.3 Absolute Neuts (auto) 3.8 Absolute Lymphs (auto) 2.55 Total Counted Not Reportable Sodium 140 Potassium 3.6 Chloride 105 Carbon Dioxide 24.0 Anion Gap 11 BUN 17 Creatinine 0.99 Estim Creat Clear Calc 72.16 Est GFR (MDRD) Af Amer 98 Est GFR (MDRD) Non-Af 81 BUN/Creatinine Ratio 17.2 Glucose 94 Calcium 8.6 Troponin I < 0.015 Assessment/Plan All Active Problems (Last Reviewed 01/23/18 @ 23:43 by Gregorio Bingham MD) Chest pain (Acute) The patient is a 62 year old M with a significant history of CVA; epilepsy; CAD with stents placed in October 2017 and on dual antiplatelet therapy who presents typical chest pain. Chest pain Admit to a monitored bed on PCU CXR independently reviewed confirms no acute cardiopulmonary disease but noted to have hyperinflation EKG independently reveiwed confirms no acute changes from his EKG in October. Received aspirin 324 mg by the paramedics ASA 81 mg p.o. daily Home Plavix and high intensity statin continued SL NTG 0.4 mg prn as needed for chest pain Serial cardiac enzymes Stat EKG as needed for chest pain Discussed this case with Dr. Doherty. Dr. Doherty recommended a dobutamine echo and to consult cardiology if dobutamine echo is positive. Patient placed n.p.o. Epilepsy Home Keppra continued Depression Doxepin continued Tobacco abuse Counselled Inpatient consult smoking cessation Nicotine patch ordered. DVT prophylaxis Subcutaneous heparin Patient with previous history of alcoholism. He denies any heavy alcohol use at this time. However patient is on thiamine which was continued. Code Visit OBSV E&M: 91623 Initial observation care L3
--- NOTE | 2018-01-23 23:08 | ED.DCSUM_ITS ---
- ER Visit Summary Date of Service: 01/23/18 Chief Complaint: Chest pain History of Present Illness: The patient is a 62 M history of CAD with 3 cardiac stents in October of this year. Prior CVA and seizures. Patient states after his cardiac stents in October has been doing well. He has had very limited chest pain. Tonight around 20 1:10 PM he had a 20-minute episode of left-sided chest pain radiating down his left arm. He was brought in by squad who gave him 4 baby aspirin and 1 sublingual nitro that completely resolved his pain. Currently he states he is pain-free. He denies any leg pain or swelling. No history of DVT or PEs. He is on both Plavix and aspirin. Physical Examination: Well-appearing male. Vital signs are stable afebrile. Pulse ox 9 9% on 2 L no hypoxia. H EENT exam unremarkable. Neck nontender. Lungs clear to auscultation bilaterally. Chest wall nontender. Heart regular rate and rhythm no murmur. Cords. Neurologically is awake and alert with no focal motor deficits. Test Results: CBC normal. White count of 7. Hemoglobin 13. Electrolytes unremarkable. Normal gap and creatinine. Troponin normal. EKG sinus rhythm rate of 62 with no acute signs of CT nor ischemia. Unchanged from September of this year. Chest x-ray portable one view shows no acute abnormality. Emergency Department Course and Treatment: On repeat exam the patient is doing well at 2302. He remains pain-free and symptom-free after the sublingual nitro by squad. Due to his history and recent stents in light that this is worsening pain in these had and similar to his prior cardiac pain I will speak to the hospitalist about overnight observation and repeat troponin. Treatment Plan: Observation admission for hospitalist. Disposition: Observation Impression: Acute chest pain of uncertain etiology resolved by nitroglycerin History of CAD with 3 cardiac stents This note was generated with [employer] dictation software. It may contain incorrect words, spelling, and punctuation that were not noted in review of the chart prior to signing ED Disposition - Plan for ED Patient: Chief Complaint: Chest Pain Referrals: [facility],Esther Trotter [Primary Care Provider] -
[2018-01-23 23:10] VITALS: BP 101/60; PULSE 58; RESP 16; O2SAT 99
[2018-01-24] VITALS (11 sets, daily range): BP systolic 102–108; BP diastolic 47–66; PULSE 53–102; RESP 16–18; TEMP 36.3–36.8; O2SAT 94–99; BMI 20.8
--- NOTE | 2018-01-24 00:14 | EKG12_ITS ---
Test Reason : CP ADMISSION Blood Pressure : / mmHG Vent. Rate : 054 BPM Atrial Rate : 054 BPM P-R Int : 158 ms QRS Dur : 100 ms QT Int : 456 ms P-R-T Axes : 077 014 070 degrees QTc Int : 432 ms Sinus bradycardia Septal infarct (cited on or before 08-APR-2015) Abnormal ECG When compared with ECG of 07-OCT-2017 05:11, Questionable change in initial forces of Septal leads Confirmed by ANASTACIO COUCH ([id number]), editor house organ GAGAN CASTANEDA ([id number]) on 01/31/2018 11:43:23 AM Referred By: Barbara Kimball Confirmed By:ANASTACIO COUCH
--- NOTE | 2018-01-24 04:00 | EKG12_ITS ---
Test Reason : AM EKG Blood Pressure : / mmHG Vent. Rate : 062 BPM Atrial Rate : 062 BPM P-R Int : 156 ms QRS Dur : 102 ms QT Int : 440 ms P-R-T Axes : 079 046 072 degrees QTc Int : 446 ms Normal sinus rhythm Septal infarct , age undetermined Abnormal ECG When compared with ECG of 24-JAN-2018 00:20, MANUAL COMPARISON REQUIRED, DATA IS UNCONFIRMED Confirmed by ANASTACIO COUCH ([id number]), acquisitions editor GAGAN CASTANEDA ([id number]) on 01/31/2018 11:43:35 AM Referred By: Barbara Kimball Confirmed By:ANASTACIO COUCH
[2018-01-24 04:35] LABS: Hematocrit 40.1 % (40-54); Hemoglobin 13.3 g/dl (13.0-16.5); Mean Corp Hgb Conc 33.2 g/gl (32-36); Mean Corpuscular Hgb 31.4 pg (27.0-32.0); Mean Corpuscular Volume 94.8 fL (80-94); Mean Platelet Vol. 9.6 fl (6.2-12.0); Platelet Count 220 K/mm3 (150-450); RBC Distribution Width CV 13.6 % (11.6-14.6); RBC Distribution Width SD 46.7 fl (35.1-43.9); Red Blood Count 4.23 M/mm3 (4.6-6.2); White Blood Count 5.9 K/mm3 (4.4-11.0)
[2018-01-24 04:42] LABS: International Normalized Ratio 1.1; Prothrombin Time (Protime)PT. 14.2 SECONDS (11.7-14.9)
[2018-01-24 04:43] LABS: Partial Thromboplast Time 30.8 Seconds (24.1-36.2)
[2018-01-24 04:51] LABS: Scan Indicated on CBC? Y/N NO
[2018-01-24 05:02] LABS: Anion Gap 7 (5-15); BUN 16 mg/dL (7-18); BUN/Creat Ratio 18.2 RATIO (10-20); Calcium,Total 8.4 mg/dL (8.5-10.1); Chloride 105 mmol/L (98-107); Creatinine, Serum 0.88 mg/dL (0.70-1.30); EST Glomerular Filtration Rate 93 mL/min (>60); Est Glom Filt Rate - Afr Amer 113 mL/min (>60); Estimated Creatinine Clearance 75.47 ml/min; Glucose 90 mg/dL (74-106); Potassium 3.9 mmol/L (3.5-5.1); Sodium Level 140 mmol/L (136-145)
[2018-01-24] MEDS: Clopidogrel Bisulfate 75 MG Tablet PO (05:55)
[2018-01-24] MEDS: Aspirin E.C. 81 MG Tablet PO (05:55)
--- NOTE | 2018-01-24 08:00 | STEWCON_ITS ---
Reason For Study: CHEST PAIN Stress Results Protocol: Dobutamine Protocol Maximum Predicted HR: 157 bpm Target HR: 133 bpm% Maximum Predicted HR: 87 % DurationHeart Rate Stage (mm:ss) (bpm) BPDos e BASELINE 66 121/65 STAGE 1 3:00 67 100/4310.00 STAGE 2 3:00 10 0 123/6220.00 STAGE 3 3:00 12 5 .00 Stage 5 2:43 13 6 108/5840.00 RECOVERY 96 113/60 Stress Duration: 11:43 mm:ss Maximum Stress HR: 136 bpm Baseline Echocardiogram Findings The estimated ejection fraction is 55 %. Stress Echo Wall motion Data Resting WMIntermediate WMStress WM Resting Wall Motion Wall Motion Stress Basal anteroseptal: Mildly No regional wall motion hypokinetic. abnormalities noted. Mid-Anterior : Mildly hypokinetic. EKG Data The baseline ECG displays normal sinus rhythm. The patient was titrated from 10 mcg to a maximum of 40 mcg of dobutamine during the stress. The maximum heart rate attained was 176 beats per minute. This was 112% of maximum predicted heart rate. During dobutamine infusion, there were no ST or T wave changes noted to suggest ischemia. No clinical angina was noted. No arrhythmias noted. Interpretation Summary The estimated ejection fraction is 55 %. Normal, adequate, dobutamine echocardiogram. Negative for ischemia by EKG and echocardiographic criteria. No anginal symptoms noted. No arrhythmias noted. Appropriate blood pressure response to dobutamine. Final LVEF is 75%. Test terminated due to the attainment of target heart rate. Ordering Physician: Gregorio Bingham Referring Physician: Barbara Kimball Performed By: Vinnie Valle RCS
[2018-01-24] MEDS: levETIRAcetam 250 MG Tablet PO (10:52)
[2018-01-24] MEDS: Thiamine Hydrochloride 100 MG Tablet PO (10:53)
--- NOTE | 2018-01-24 15:42 | DCINST_ITS ---
You will use the following diet at home:: Cardiac Your food should be the consistency of: Regular Discharge Activity: Return to Normal Activity Call your doctor if you observe: Shortness of breath, Dizziness, Chest pain Allergies/Adverse Reactions: Allergies tuberculin, purified protein deriva Allergy (Verified 01/23/18 22:01) Swelling bumble bee stings Allergy (Severe, Uncoded 01/23/18 22:01) Anaphylaxis Medications to take at Discharge aspirin 81 mg tablet,delayed release 81 mg PO QDAY 08/01/17 atorvastatin 40 mg tablet 40 mg PO QHS tab 08/01/17 thiamine HCl (vitamin B1) 100 mg tablet 100 mg PO QDAY 08/01/17 doxepin 10 mg capsule 10 mg PO QHS 08/02/17 clopidogrel 75 mg tablet 75 mg PO QDAY #30 tab 10/03/17 levetiracetam 250 mg tablet 250 mg PO BID tab 10/03/17 Primary Care Physician: Esther Aguilar [Primary Care Provider] - Test Results: Test results from this visit will be discussed in further detail at your follow- up appointment, if applicable.
--- NOTE | 2018-01-24 15:43 | PCM.DC.SUM ---
Discharge Date and Diagnosis Date of Admission: 01/23/18 Date of Discharge: 01/24/18 - Primary Discharge Diagnosis Chest pain, noncardiac - Secondary Discharge Diagnosis Chronic Problems (Last Reviewed 01/23/18 @ 23:43 by Gregorio Bingham MD) Hyperlipidemia (Chronic) Atherosclerotic heart disease of [place] coronary artery without angina pectoris (Chronic) 3.0 X 32 mm Synergy LOPEZ to mid LAD; 2.5 x 16 MM Synergy LOPEZ to second diagonal per Dr. Doherty @ [facility] Stented coronary artery (Chronic 10/06/17) 3.0 X 32 mm Synergy LOPEZ to mid LAD; 2.5 x 16 MM Synergy LOPEZ to second diagonal per Dr. Doherty @ [facility] Abnormal stress echo (Chronic) Atrial septal aneurysm (Chronic) Abnormal electrocardiogram (Chronic) Nicotine dependence (Chronic) Hospital Course and Treatment Imaging Results: 01/24/18 08:00 Stress Test Echo w/o Contrast [ECHO] Routine Operations: None Procedures: None Summary of Care Provided: The patient is a 62 year old M with a history of CVA without residual deficits, seizure disorder, CAD with stents (2018, on dual antiplatelet therapy), tobacco use and chronic back pain who was admitted for chest pain. Cardiac enzymes and EKGs were unremarkable. Patient underwent a Cardiolite stress test which showed no evidence of reversible ischemia. He had no further episodes of chest pain. Patient was otherwise doing well was stable and ready for discharge and had met maximal hospital benefit. Patient states that he is scheduled to follow-up with his admin prog coord, Dr. Doherty next month. - Physical Exam General: Alert, Oriented x3, Cooperative HEENT: Normocephalic Neck: Supple, No JVD Lungs: Clear to auscultation, Normal air movement Cardiovascular: Regular rate, No murmurs Abdomen: Bowel Sounds Present, Soft, Non Tender Extremities: No edema - No lower extremity edema, no calf tenderness., Capillary Refill Less than 3 Seconds Skin: No rashes, No breakdown Musculoskeletal: No Tenderness to Palpation of Joints or Extremities Neurological: Cranial nerves II-XII grossly intact Psych/Mental Status: Normal Affect, Appropriate Vital Signs Temp Pulse Resp BP Pulse Ox 97.3 F L 78 18 108/47 L 97 01/24/18 14:25 01/24/18 14:25 01/24/18 14:25 01/24/18 14:25 01/24/18 14:25 Oxygen Flow Rate (L/min) 2 Oxygen Delivery Method Room Air Weight: 62.1 kg Body Mass Index (BMI) 20.8 Intake and Output for Last 24 Hours 01/22/18 01/23/18 01/24/18 23:59 23:59 23:59 Intake Total 500 / 500 Output Total 300 / 300 Balance 200 / 200 Laboratory Tests Past 24 Hrs 01/23/18 01/23/18 01/24/18 22:05 22:05 01:11 WBC 7.5 RBC 4.25 L Hgb 13.2 Hct 39.6 L MCV 93.2 MCH 31.1 MCHC 33.3 RDW 13.5 RDW Differential 45.8 H Plt Count 241 MPV 9.9 Immature Gran % (Auto) 0.100 Neut % (Auto) 50.7 Lymph % (Auto) 34.0 [place] % (Auto) 10.9 H Eos % (Auto) 4.0 Baso % (Auto) 0.3 Absolute Neuts (auto) 3.8 Absolute Lymphs (auto) 2.55 Total Counted Not Reportable PT INR APTT Sodium 140 Potassium 3.6 Chloride 105 Carbon Dioxide 24.0 Anion Gap 11 BUN 17 Creatinine 0.99 Estim Creat Clear Calc 72.16 Est GFR (MDRD) Af Amer 98 Est GFR (MDRD) Non-Af 81 BUN/Creatinine Ratio 17.2 Glucose 94 Calcium 8.6 Troponin I < 0.015 < 0.015 01/24/18 01/24/18 01/24/18 04:26 04:26 04:26 WBC 5.9 RBC 4.23 L Hgb 13.3 Hct 40.1 MCV 94.8 H MCH 31.4 MCHC 33.2 RDW 13.6 RDW Differential 46.7 H Plt Count 220 MPV 9.6 Immature Gran % (Auto) Neut % (Auto) Lymph % (Auto) [place] % (Auto) Eos % (Auto) Baso % (Auto) Absolute Neuts (auto) Absolute Lymphs (auto) Total Counted PT 14.2 INR 1.1 APTT 30.8 Sodium 140 Potassium 3.9 Chloride 105 Carbon Dioxide 28.0 Anion Gap 7 BUN 16 Creatinine 0.88 Estim Creat Clear Calc 75.47 Est GFR (MDRD) Af Amer 113 Est GFR (MDRD) Non-Af 93 BUN/Creatinine Ratio 18.2 Glucose 90 Calcium 8.4 L Troponin I < 0.015 Discharge Diet: No Restrictions Discharge Activity: Return to Normal Activity May resume sexual activity in: No Restrictions Call your doctor if you observe: Shortness of breath, Dizziness, Chest pain Home Medications: Medications to take at Discharge aspirin 81 mg tablet,delayed release 81 mg PO QDAY 08/01/17 atorvastatin 40 mg tablet 40 mg PO QHS tab 08/01/17 thiamine HCl (vitamin B1) 100 mg tablet 100 mg PO QDAY 08/01/17 doxepin 10 mg capsule 10 mg PO QHS 08/02/17 clopidogrel 75 mg tablet 75 mg PO QDAY #30 tab 10/03/17 levetiracetam 250 mg tablet 250 mg PO BID tab 10/03/17 Primary Care Physician: Esther Aguilar [Primary Care Provider] - Disposition: Home Patient Condition:: Good Medical Necessity - Tobacco Use Smoking Status: Current every day smoker Meaningful Use Info Meaningful Use Diagnoses (Choose all that apply): None applicable Code Visit Inpatient E&M: 36804 Disch Hosp
--- NOTE | 2018-01-24 15:54 | DS.PCM_ITS ---
Discharge Date and Diagnosis Date of Admission: 01/23/18 Date of Discharge: 01/24/18 - Primary Discharge Diagnosis Chest pain, noncardiac - Secondary Discharge Diagnosis Chronic Problems (Last Reviewed 01/23/18 @ 23:43 by Gregorio Bingham MD) Hyperlipidemia (Chronic) Atherosclerotic heart disease of [place] coronary artery without angina pectoris (Chronic) 3.0 X 32 mm Synergy LOPEZ to mid LAD; 2.5 x 16 MM Synergy LOPEZ to second diagonal per Dr. Doherty @ [facility] Stented coronary artery (Chronic 10/06/17) 3.0 X 32 mm Synergy LOPEZ to mid LAD; 2.5 x 16 MM Synergy LOPEZ to second diagonal per Dr. Doherty @ [facility] Abnormal stress echo (Chronic) Atrial septal aneurysm (Chronic) Abnormal electrocardiogram (Chronic) Nicotine dependence (Chronic) Hospital Course and Treatment Imaging Results: 01/24/18 08:00 Stress Test Echo w/o Contrast [ECHO] Routine Operations: None Procedures: None Summary of Care Provided: The patient is a 62 year old M with a history of CVA without residual deficits, seizure disorder, CAD with stents (2018, on dual antiplatelet therapy), tobacco use and chronic back pain who was admitted for chest pain. Cardiac enzymes and EKGs were unremarkable. Patient underwent a Cardiolite stress test which showed no evidence of reversible ischemia. He had no further episodes of chest pain. Patient was otherwise doing well was stable and ready for discharge and had met maximal hospital benefit. 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 Doherty next month. - Physical Exam General: Alert, Oriented x3, Cooperative HEENT: Normocephalic Neck: Supple, No JVD Lungs: Clear to auscultation, Normal air movement Cardiovascular: Regular rate, No murmurs Abdomen: Bowel Sounds Present, Soft, Non Tender Extremities: No edema - No lower extremity edema, no calf tenderness., Capillary Refill Less than 3 Seconds Skin: No rashes, No breakdown Musculoskeletal: No Tenderness to Palpation of Joints or Extremities Neurological: Cranial nerves II-XII grossly intact Psych/Mental Status: Normal Affect, Appropriate Vital Signs Temp Pulse Resp BP Pulse Ox 97.3 F L 78 18 108/47 L 97 01/24/18 14:25 01/24/18 14:25 01/24/18 14:25 01/24/18 14:25 01/24/18 14:25 Oxygen Flow Rate (L/min) 2 Oxygen Delivery Method Room Air Weight: 62.1 kg Body Mass Index (BMI) 20.8 Intake and Output for Last 24 Hours 01/22/18 01/23/18 01/24/18 23:59 23:59 23:59 Intake Total 500 / 500 Output Total 300 / 300 Balance 200 / 200 Laboratory Tests Past 24 Hrs 01/23/18 01/23/18 01/24/18 22:05 22:05 01:11 WBC 7.5 RBC 4.25 L Hgb 13.2 Hct 39.6 L MCV 93.2 MCH 31.1 MCHC 33.3 RDW 13.5 RDW Differential 45.8 H Plt Count 241 MPV 9.9 Immature Gran % (Auto) 0.100 Neut % (Auto) 50.7 Lymph % (Auto) 34.0 [place] % (Auto) 10.9 H Eos % (Auto) 4.0 Baso % (Auto) 0.3 Absolute Neuts (auto) 3.8 Absolute Lymphs (auto) 2.55 Total Counted Not Reportable PT INR APTT Sodium 140 Potassium 3.6 Chloride 105 Carbon Dioxide 24.0 Anion Gap 11 BUN 17 Creatinine 0.99 Estim Creat Clear Calc 72.16 Est GFR (MDRD) Af Amer 98 Est GFR (MDRD) Non-Af 81 BUN/Creatinine Ratio 17.2 Glucose 94 Calcium 8.6 Troponin I < 0.015 < 0.015 01/24/18 01/24/18 01/24/18 04:26 04:26 04:26 WBC 5.9 RBC 4.23 L Hgb 13.3 Hct 40.1 MCV 94.8 H MCH 31.4 MCHC 33.2 RDW 13.6 RDW Differential 46.7 H Plt Count 220 MPV 9.6 Immature Gran % (Auto) Neut % (Auto) Lymph % (Auto) [place] % (Auto) Eos % (Auto) Baso % (Auto) Absolute Neuts (auto) Absolute Lymphs (auto) Total Counted PT 14.2 INR 1.1 APTT 30.8 Sodium 140 Potassium 3.9 Chloride 105 Carbon Dioxide 28.0 Anion Gap 7 BUN 16 Creatinine 0.88 Estim Creat Clear Calc 75.47 Est GFR (MDRD) Af Amer 113 Est GFR (MDRD) Non-Af 93 BUN/Creatinine Ratio 18.2 Glucose 90 Calcium 8.4 L Troponin I < 0.015 Discharge Diet: No Restrictions Discharge Activity: Return to Normal Activity May resume sexual activity in: No Restrictions Call your doctor if you observe: Shortness of breath, Dizziness, Chest pain Home Medications: Medications to take at Discharge aspirin 81 mg tablet,delayed release 81 mg PO QDAY 08/01/17 atorvastatin 40 mg tablet 40 mg PO QHS tab 08/01/17 thiamine HCl (vitamin B1) 100 mg tablet 100 mg PO QDAY 08/01/17 doxepin 10 mg capsule 10 mg PO QHS 08/02/17 clopidogrel 75 mg tablet 75 mg PO QDAY #30 tab 10/03/17 levetiracetam 250 mg tablet 250 mg PO BID tab 10/03/17 Primary Care Physician: Esther Aguilar [Primary Care Provider] - Disposition: Home Patient Condition:: Good Medical Necessity - Tobacco Use Smoking Status: Current every day smoker Meaningful Use Info Meaningful Use Diagnoses (Choose all that apply): None applicable Code Visit Inpatient E&M: 93578 Disch Hosp
== END 2018-01-24 15:41 | disposition home or self-care (01) ==
LOC: ED 22:19 → PCU 23:27
PROVIDERS: Admitting Provider Hospitalist; Emergency Provider Emergency Medicine; Referring Provider Nurse Practitioner Family; Visit Provider Hospitalist
DX: R07.89 Other chest pain (principal); E78.5 Hyperlipidemia, unspecified; I25.10 Atherosclerotic heart disease of native coronary artery without angina pectoris; R94.39 Abnormal result of other cardiovascular function study; R94.31 Abnormal electrocardiogram [ECG] [EKG]; Z86.73 Personal history of transient ischemic attack (TIA), and cerebral infarction without residual deficits; Z79.02 Long term (current) use of antithrombotics/antiplatelets; Z79.899 Other long term (current) drug therapy; Z79.82 Long term (current) use of aspirin; G40.909 Epilepsy, unspecified, not intractable, without status epilepticus; F17.200 Nicotine dependence, unspecified, uncomplicated; F10.21 Alcohol dependence, in remission
CPT/HCPCS: 36415; 71045; 80048; 84484; 85025; 85027; 85610; 85730; 93005; 93017; 93350; 97162; 97165; 99218; 99285; 99406; J7030; A4216; G0378

== ENCOUNTER 2018-02-12 14:18 | Observation (INO) | payer MEDICAID, SELFPAY ==
[2017-10-06 13:03] VITALS: BMI 22.4
[2018-02-12] VITALS (9 sets, daily range): BP systolic 149–165; BP diastolic 73–96; PULSE 70–115; RESP 16–19; TEMP 36.8–37.3; O2SAT 92–99; BMI 22.5; BMI 21.1
--- NOTE | 2018-02-12 14:25 | CT_ITS ---
STUDY: CTA OF THE BRAIN REASON FOR EXAM: Male, 62 years old. CVA. RADIATION DOSAGE (If Supplied By Facility): CTDIvol = ( 21.39 ) mGy, DLP = ( 774.91 ) mGycm TECHNIQUE: CT angiography was performed with a multi-detector CT scanner. Data acquisition was obtained from the skull base through the vertex following intravenous administration of 100 ml of Isovue 370. MIP images were reconstructed from the axial data set. Post-processing of the angiographic images was performed, with multiplanar reformation and 3D reconstruction. Individualized dose optimization techniques were used for this CT. COMPARISON: None. FINDINGS: Normal bilateral petrous carotid arteries. Normal right cavernous carotid artery with a normal supraclinoid bifurcation. Normal left cavernous carotid artery with a normal supraclinoid bifurcation. Normal right A1 segment of the anterior cerebral artery. Normal left A1 segment of the anterior cerebral artery. Normal intact anterior communicating artery (ACOM). Normal bilateral A2 segments of the anterior cerebral arteries. Normal right M1 and M2 segments of the middle cerebral arteries, with a normal M1 bifurcation. Normal left M1 and M2 segments of the middle cerebral arteries, with a normal M1 bifurcation. No visible right posterior communicating artery (PCOM). No visible left posterior communicating artery (PCOM). Normal bilateral vertebral arteries. Normal basilar artery with a normal basilar bifurcation. The visualized bilateral superior cerebellar (SCA) arteries are normal. Normal bilateral P1, P2 and visualized P3 segments of the posterior cerebral arteries. There is no demonstrated aneurysm of the [place]. Old cortical-based ischemic infarct with focal apical in the right posterior temporal parietal lobes. IMPRESSION: 1. No CTA evidence of vaso-occlusive disease of the anterior and posterior intracranial circulation. 2. No CTA evidence of intracranial aneurysm, saccular or fusiform type. 3. Old cortical based ischemic infarct with cystic encephalomalacia and focal atrophy in the right posterior temporoparietal lobes. N.B. : The above information has been verbally conveyed by Eddie Chen DO to Pennie Jones MD, on 02/12/2018 15:11:32 (ET). Electronically Signed: Bryan Sauceda MD at 15:06 EST , Service support , STUDY: CTA NECK WITH CONTRAST REASON FOR EXAM: Male, 62 years old. CVA. RADIATION DOSAGE (If Supplied By Facility): CTDIvol = ( 21.39 ) mGy, DLP = ( 774.91 ) mGycm TECHNIQUE: CT angiography with multi-detector data acquisition was performed from the aortic arch to the skull base following intravenous administration of 100 ml of Isovue 370 contrast. MIP images were reconstructed from the axial data set. Post-processing of the angiographic images was performed, with multiplanar reformation and 3D reconstruction. Individualized dose optimization techniques were used for this CT. COMPARISON: None. FINDINGS: AORTIC ARCH: Normal visualized aortic arch. Normal origins of the brachiocephalic, left common carotid, and left subclavian arteries. RIGHT CAROTID ARTERIES: Normal right common carotid artery (CCA). Normal right internal carotid bulb. Widely patent origin of the right internal carotid (ICA) artery without a hemodynamically significant stenosis. Normal visualized cervical portion of the right internal carotid artery. Normal origin of the right external carotid artery (ECA). LEFT CAROTID ARTERIES: Normal left common carotid artery (CCA). Normal left internal carotid bulb. Widely patent origin of the left internal carotid (ICA) artery without a hemodynamically significant stenosis. Normal visualized cervical portion of the left internal carotid artery. Normal origin of the left external carotid artery (ECA). VERTEBRAL ARTERIES: Normal bilateral vertebral arteries. 50% stenosis of both subclavian arteries at their subclavian origins in the coronal MIPS but not confirmed in the axial source images. CT/CTA Head W/WO Contrast IMPRESSION: 1. No CTA evidence of any suspicious significant vaso-occlusive disease or dissection in both carotid arteries. 2. Normal aortic arch and origins of the great vessels. 3. Suspicious 50% stenosis at the subclavian origins in the coronal MIPS but not confirmed in the axial source images. N.B. : The above information has been verbally conveyed by Eddie Chen DO to Pennie Jones MD, on 02/12/2018 15:11:32 (ET). Electronically Signed: Bryan Sauceda MD at 15:14 EST , Service support ,
--- NOTE | 2018-02-12 14:25 | CT_ITS ---
STUDY: CTA OF THE BRAIN REASON FOR EXAM: Male, 62 years old. CVA. RADIATION DOSAGE (If Supplied By Facility): CTDIvol = ( 21.39 ) mGy, DLP = ( 774.91 ) mGycm TECHNIQUE: CT angiography was performed with a multi-detector CT scanner. Data acquisition was obtained from the skull base through the vertex following intravenous administration of 100 ml of Isovue 370. MIP images were reconstructed from the axial data set. Post-processing of the angiographic images was performed, with multiplanar reformation and 3D reconstruction. Individualized dose optimization techniques were used for this CT. COMPARISON: None. FINDINGS: Normal bilateral petrous carotid arteries. Normal right cavernous carotid artery with a normal supraclinoid bifurcation. Normal left cavernous carotid artery with a normal supraclinoid bifurcation. Normal right A1 segment of the anterior cerebral artery. Normal left A1 segment of the anterior cerebral artery. Normal intact anterior communicating artery (ACOM). Normal bilateral A2 segments of the anterior cerebral arteries. Normal right M1 and M2 segments of the middle cerebral arteries, with a normal M1 bifurcation. Normal left M1 and M2 segments of the middle cerebral arteries, with a normal M1 bifurcation. No visible right posterior communicating artery (PCOM). No visible left posterior communicating artery (PCOM). Normal bilateral vertebral arteries. Normal basilar artery with a normal basilar bifurcation. The visualized bilateral superior cerebellar (SCA) arteries are normal. Normal bilateral P1, P2 and visualized P3 segments of the posterior cerebral arteries. There is no demonstrated aneurysm of the [place]. Old cortical-based ischemic infarct with focal apical in the right posterior temporal parietal lobes. IMPRESSION: 1. No CTA evidence of vaso-occlusive disease of the anterior and posterior intracranial circulation. 2. No CTA evidence of intracranial aneurysm, saccular or fusiform type. 3. Old cortical based ischemic infarct with cystic encephalomalacia and focal atrophy in the right posterior temporoparietal lobes. N.B. : The above information has been verbally conveyed by Eddie Chen DO to Pennie Jones MD, on 02/12/2018 15:11:32 (ET). Electronically Signed: Bryan Sauceda MD at 15:06 EST , Service support , STUDY: CTA NECK WITH CONTRAST REASON FOR EXAM: Male, 62 years old. CVA. RADIATION DOSAGE (If Supplied By Facility): CTDIvol = ( 21.39 ) mGy, DLP = ( 774.91 ) mGycm TECHNIQUE: CT angiography with multi-detector data acquisition was performed from the aortic arch to the skull base following intravenous administration of 100 ml of Isovue 370 contrast. MIP images were reconstructed from the axial data set. Post-processing of the angiographic images was performed, with multiplanar reformation and 3D reconstruction. Individualized dose optimization techniques were used for this CT. COMPARISON: None. FINDINGS: AORTIC ARCH: Normal visualized aortic arch. Normal origins of the brachiocephalic, left common carotid, and left subclavian arteries. RIGHT CAROTID ARTERIES: Normal right common carotid artery (CCA). Normal right internal carotid bulb. Widely patent origin of the right internal carotid (ICA) artery without a hemodynamically significant stenosis. Normal visualized cervical portion of the right internal carotid artery. Normal origin of the right external carotid artery (ECA). LEFT CAROTID ARTERIES: Normal left common carotid artery (CCA). Normal left internal carotid bulb. Widely patent origin of the left internal carotid (ICA) artery without a hemodynamically significant stenosis. Normal visualized cervical portion of the left internal carotid artery. Normal origin of the left external carotid artery (ECA). VERTEBRAL ARTERIES: Normal bilateral vertebral arteries. 50% stenosis of both subclavian arteries at their subclavian origins in the coronal MIPS but not confirmed in the axial source images. CT/CTA Neck W/WO Contrast IMPRESSION: 1. No CTA evidence of any suspicious significant vaso-occlusive disease or dissection in both carotid arteries. 2. Normal aortic arch and origins of the great vessels. 3. Suspicious 50% stenosis at the subclavian origins in the coronal MIPS but not confirmed in the axial source images. N.B. : The above information has been verbally conveyed by Eddie Chen DO to Pennie Jones MD, on 02/12/2018 15:11:32 (ET). Electronically Signed: Bryan Sauceda MD at 15:14 EST , Service support ,
--- NOTE | 2018-02-12 14:30 | RAD_ITS ---
STUDY: X-RAY CHEST REASON FOR EXAM: Male, 62 years old. Unresponsiveness TECHNIQUE: Single AP portable view of the chest. COMPARISON: 01/23/2018 FINDINGS: The lungs are clear and expanded. There is no demonstrated pleural abnormality. Normal size heart. Normal mediastinum and mariluz. Normal visualized pulmonary arteries. Normal visualized aortic arch and descending thoracic aorta. Normal visualized thoracic spine. Normal visualized ribs, clavicles, and shoulders. There is no demonstrated abnormality of the visualized soft tissue structures of the upper abdomen. RAD/Chest 1 View (Portable) IMPRESSION: Normal x-ray examination of the chest. Electronically Signed: Eddie Chen DO at 15:00 EST Tel , Service support ,
--- NOTE | 2018-02-12 14:30 | EKG12_ITS ---
Test Reason : UNRESONSIVE Blood Pressure : / mmHG Vent. Rate : 076 BPM Atrial Rate : 076 BPM P-R Int : 172 ms QRS Dur : 108 ms QT Int : 428 ms P-R-T Axes : 082 -16 063 degrees QTc Int : 481 ms Sinus rhythm with occasional Premature ventricular complexes Prolonged QT Abnormal ECG Confirmed by CONCETTA WOODWARD, HAL ([id number]), editor continuity and script GAGAN CASTANEDA ([id number]) on 02/15/2018 11:13:26 AM Referred By: Adilia Steele Confirmed By:HAL HYLTON MD
--- NOTE | 2018-02-12 14:31 | ED.VISSUMM ---
- ER Visit Summary Date of Service: 02/12/18 Chief Complaint: [] Seizure History of Present Illness: The patient is a 62 M [] history of stroke, seizure disorder, cardiac stents, was with his friend all day today, the friend indicates the patient had been talking about a dream he had related to his . The patient had no complaints the patient stood and as he was walking he seemed to have a seizure disorder with jerking of his extremities he fell onto the friend's arms he then assisted him down, he did not injure himself, and then paramedics were called on arrival to EMS EMS as the patient had a fixed gaze to the left was unresponsive and had unremarkable vital signs. Per the friend, the patient has not been sick all day he has been taking his seizure meds he had a cardiovascular follow-up evaluation by Dr. Doherty in the last few days that was unremarkable and the patient did not have any complaints before all this began Physical Examination: [] On arrival his blood pressure is 140/70 his other vital signs are unremarkable he is lying in the bed, he has urinary incontinence, he has a fixed gaze to the left he does blink his eyes to confrontation his airways intact his lungs sound clear his heart tones are distant the abdomen is soft nontender he has nonpurposeful jerking movements of his extremities all 4, he will open his eyes to verbal and occasionally to spontaneous, he withdraws to pain, he does not follow commands Test Results: [] Emergency Department Course and Treatment: [] Given all of the above he will be started on IV Ativan Keppra he has a prior history for stroke seizure CAD resuscitation methods and evaluation will be instituted Patient stroke CTA head neck chest per radiology show prior old stroke involving the right parietal area nothing acute no signs of any major stenosis please see those reports the patient's labs are all also generally unremarkable and other studies see those reports, on reevaluation he is awake he looks about still has intermittent gaze to the left per the family members able to communicate with him when he nods his head and per nursing he is squeezing her hands to commands, he has been treated with Ativan and IV Keppra given all the above we will arrange for admission to the hospitalist for further management Only reports after the patient has a seizure he has a protracted period of time where he is less responsive than normal sometimes this can last for 24 hours, he has no signs of hemodynamic instability or rest or compromise or distress his pulse ox is 98% on 2 L and there is no airway issues Treatment Plan: [] Disposition: [] Admit stable Impression: [] Seizure with history of seizure disorder, prior history for stroke, history for CAD cardiac stents This note was generated with Master [employer] dictation software. It may contain incorrect words, spelling, and punctuation that were not noted in review of the chart prior to signing ED Disposition - Plan for ED Patient: Chief Complaint: Unresponsive Referrals: Esther Aguilar [Primary Care Provider] -
--- NOTE | 2018-02-12 14:40 | CT_ITS ---
STUDY: CT BRAIN WITHOUT CONTRAST REASON FOR EXAM: Male, 62 years old. CVA RADIATION DOSAGE (If Supplied By Facility): CTDIvol = ( 44.99 ) mGy, DLP = ( 829.85 ) mGycm TECHNIQUE: Transaxial CT imaging of the brain was performed without administration of intravenous contrast material. Individualized dose optimization techniques were used for this CT. COMPARISON: 08/22/2012 FINDINGS: Normal soft tissue structures. Normal calvarium. There is mild cerebral atrophy with widening of the extra-axial spaces and ventricular dilatation. There are areas of decreased attenuation within the white matter tracts of the supratentorial brain, consistent with microvascular disease changes. Normal basal ganglia and thalami. Normal brainstem. There is mild cerebellar atrophy. There is no intracranial hemorrhage. In the region of the right parietal-occipital lobe, there is an area of parenchymal hypodensity with some ex vacuo dilation of the posterior horn of the right lateral ventricle. This suggests old ischemia however, acute on chronic ischemia cannot be excluded. This is new from the examination 2012. Normal visualized paranasal sinuses. CT/Brain/Head without Contrast IMPRESSION: Chronic involutional changes of the brain. Possible acute on chronic ischemia involving the right parieto-occipital lobe. MRI brain is recommended to further evaluate N.B. : The above information has been verbally conveyed by Eddie Chen DO to Pennie Hightowerkirby on 02/12/2018 14:57:25 (ET). Electronically Signed: Eddie Chen DO at 14:58 EST Tel , Service support ,
[2018-02-12 14:43] LABS: Absolute Lymphocyte Count 3.97 X10^3/ul (0.83-4.51); Absolute Neutrophil Count 5.3 X10^3/uL (2.0-7.7); Basophil# 0.06 X10^3/uL; Basophil% 0.6 % (0-1); Eosinophils% 6.5 % (0-5); Hematocrit 42.1 % (40-54); Hemoglobin 13.9 g/dl (13.0-16.5); Lymphocyte # 3.97 X10^3/ul (4.0); Lymphocyte % 36.8 % (19-41); Mean Corpuscular Hgb 31.9 pg (27.0-32.0); Mean Corpuscular Volume 96.6 fL (80-94); Mean Platelet Vol. 9.5 fl (6.2-12.0); Monocyte# 0.73 X10^3/uL; Monocyte% 6.8 % (0-10); Neutrophil # 5.27 X10^3/uL (2.7-7.7); Neutrophil % 48.7 % (47-70); POSITIVE COUNT NO; POSITIVE DIFFERENTIAL NO; POSITIVE MORPHOLOGY NO; Platelet Count 275 K/mm3 (150-450); RBC Distribution Width CV 13.2 % (11.6-14.6); RBC Distribution Width SD 46.9 fl (35.1-43.9); Red Blood Count 4.36 M/mm3 (4.6-6.2); White Blood Count 10.8 K/mm3 (4.4-11.0)
[2018-02-12] MEDS: LORazepam 2 MG/ML Syringe 1 MG IV (14:46)
[2018-02-12] MEDS: 0.9% Normal Saline 1,000 ML 150 ML IV (14:46)
[2018-02-12] MEDS: levETIRAcetam IV 1,000 MG/100 ML BAG 400 MG IV (15:06)
[2018-02-12 15:23] LABS: Anion Gap 5 (5-15); BUN 16 mg/dL (7-18); BUN/Creat Ratio 18.5 RATIO (10-20); Calcium,Total 8.1 mg/dL (8.5-10.1); Chloride 106 mmol/L (98-107); Creatinine, Serum 0.87 mg/dL (0.70-1.30); EST Glomerular Filtration Rate 95 mL/min (>60); Est Glom Filt Rate - Afr Amer 114 mL/min (>60); Estimated Creatinine Clearance 82.63 ml/min; Glucose 161 mg/dL (74-106); Potassium 3.7 mmol/L (3.5-5.1); Sodium Level 139 mmol/L (136-145)
--- NOTE | 2018-02-12 15:28 | PCM.HP.STD ---
Problem List (1) Hyperlipidemia Status: Chronic Qualifiers: (2) Atherosclerotic heart disease of [place] coronary artery without angina pectoris Status: Chronic Qualifiers: Comment: 3.0 X 32 mm Synergy LOPEZ to mid LAD; 2.5 x 16 MM Synergy LOPEZ to second diagonal per Dr. Doherty @ [facility] (3) Stented coronary artery Status: Chronic Comment: 3.0 X 32 mm Synergy LOPEZ to mid LAD; 2.5 x 16 MM Synergy LOPEZ to second diagonal per Dr. Doherty @ [facility] (4) Atrial septal aneurysm Status: Chronic (5) Abnormal electrocardiogram Status: Chronic (6) Nicotine dependence Status: Chronic Qualifiers: History of Present Illness Date of Admission: 02/12/18 Chief Complaint: Unresponsiveness, witnessed seizure. The patient is a 62 year old M who presents emergency room due to witnessed seizure followed by episode of unresponsiveness. Patient is nonverbal during assessment and unable to provide HPI. Family at bedside, however they were not present during seizure/unresponsive events. Family reports patient had a heart attack 2 weeks ago. They state he has been well since that time. They note his last seizure was about 1 year ago. Daughter at bedside states patient has been taking his prescribed medications to her knowledge. He does not follow with a neurologist. Per family, patient was with a friend today when he collapsed to the floor and had jerking movements of his extremities. He was noted by EMS to have fixed gaze and unresponsive. Sister reports patient with history of petit mal seizures. His other past medical history includes CAD status post PCI, history of CVA, hyperlipidemia, tobacco dependence. Past Medical History Past Medical History (Chronic Problems): Chronic Problems (Last Reviewed 01/23/18 @ 23:43 by Gregorio Bingham MD) Hyperlipidemia (Chronic) Atherosclerotic heart disease of [place] coronary artery without angina pectoris (Chronic) 3.0 X 32 mm Synergy LOPEZ to mid LAD; 2.5 x 16 MM Synergy LOPEZ to second diagonal per Dr. Doherty @ [facility] Stented coronary artery (Chronic 10/06/17) 3.0 X 32 mm Synergy LOPEZ to mid LAD; 2.5 x 16 MM Synergy LOPEZ to second diagonal per Dr. Doherty @ [facility] Atrial septal aneurysm (Chronic) Abnormal electrocardiogram (Chronic) Nicotine dependence (Chronic) Medical History: Medical History (Last Reviewed 01/23/18 @ 23:43 by Gregorio Bingham MD) Atherosclerotic heart disease of [place] coronary artery without angina pectoris (Chronic) I25.10 3.0 X 32 mm Synergy LOPEZ to mid LAD; 2.5 x 16 MM Synergy LOPEZ to second diagonal per Dr. Doherty @ [facility] Atrial septal aneurysm (Chronic) I25.3 Abnormal electrocardiogram (Chronic) R94.31 Nicotine dependence (Chronic) F17.200 CVA (cerebral vascular accident) I63.9 MCA Infarct Chronic back pain M54.9, G89.29 Seizure R56.9 Allergies tuberculin, purified protein deriva Allergy (Verified 02/12/18 14:54) Swelling bumble bee stings Allergy (Severe, Uncoded 02/12/18 14:54) Anaphylaxis Home Medications: Ambulatory Orders Medication Instructions Recorded aspirin 81 mg tablet,delayed 81 mg PO QDAY 08/01/17 release atorvastatin 40 mg tablet 40 mg PO QHS tab 08/01/17 thiamine HCl (vitamin B1) 100 mg 100 mg PO QDAY 08/01/17 tablet levetiracetam 250 mg tablet 250 mg PO BID tab 10/03/17 clopidogrel 75 mg tablet 75 mg PO DAILY #90 tab 02/10/18 Surgical History: Surgical History (Last Reviewed 02/12/18 @ 15:45 by JOSE MARIA Sheets) Stented coronary artery (Chronic) Onset Date: 10/06/17 Z95.5 3.0 X 32 mm Synergy LOPEZ to mid LAD; 2.5 x 16 MM Synergy LPOEZ to second diagonal per Dr. Doherty @ [facility] History of lumbar puncture Onset Date: ~04/2017 Z98.890 finger surgery lymph node resection Psychiatric History: No pertinent psych hx Lives: Friends Smoking Status: Unknown if ever smoked Tobacco Use: Cigarettes - *Family History Maternal Family History: Family History (Last Reviewed 02/12/18 @ 15:45 by JOSE MARIA Sheets) Mother Myocardial infarction Brother Myocardial infarction History Items: - - mother with different types of cancer Paternal Family History: Family History (Last Reviewed 02/12/18 @ 15:45 by JOSE MARIA Sheets) Mother Myocardial infarction Brother Myocardial infarction History Items: - - Lung cancer Review of Systems Neurological: Reports: Seizures - Reported by family. Unable to obtain accurate/complete ROS d/t: Patient non-verbal at this time. Unable to ontain ROS. VTE Information - Inpt Only VTE Present on Admission: No VTE Mechan Device Prophylaxis: None VTE Pharm Prophylaxis ordered?: Yes - Physical Exam General: Alert, No apparent distress, - - Non-verbal. Unkempt. HEENT: Atraumatic, PERRLA, EOMI, Normocephalic Oral: Dry Mucosa Neck: Supple, No JVD, Negative Carotid Bruits Lungs: Clear to auscultation, Diminished Cardiovascular: Regular Rhythm, Normal S1, Normal S2, No murmurs, Tachycardic Abdomen: Bowel Sounds Present, Soft, Non Tender, Non-Distended Extremities: No clubbing, No cyanosis, No edema, Capillary Refill Less than 3 Seconds Skin: No rashes, No breakdown Musculoskeletal: No Tenderness to Palpation of Joints or Extremities Neurological: - - Follows some commands. Difficult to assess complete neuro status. Strength equal bilaterally. No facial droop. Psych/Mental Status: - - Unable to assess Vital Signs Pulse Resp BP Pulse Ox 70 16 149/73 H 99 02/12/18 14:19 02/12/18 14:19 02/12/18 14:19 02/12/18 14:49 Oxygen Flow Rate (L/min) 2 Oxygen Delivery Method Nasal Cannula Weight: 148 lb 3.2 oz Body Mass Index (BMI) 22.5 Laboratory Tests Past 24 Hrs 02/12/18 02/12/18 14:29 14:29 WBC 10.8 RBC 4.36 L Hgb 13.9 Hct 42.1 MCV 96.6 H MCH 31.9 MCHC 33.0 RDW 13.2 RDW Differential 46.9 H Plt Count 275 MPV 9.5 Immature Gran % (Auto) 0.600 Neut % (Auto) 48.7 Lymph % (Auto) 36.8 [place] % (Auto) 6.8 Eos % (Auto) 6.5 H Baso % (Auto) 0.6 Absolute Neuts (auto) 5.3 Absolute Lymphs (auto) 3.97 Total Counted Not Reportable Sodium 139 Potassium 3.7 Chloride 106 Carbon Dioxide 28.0 Anion Gap 5 BUN 16 Creatinine 0.87 Estim Creat Clear Calc 82.63 Est GFR (MDRD) Af Amer 114 Est GFR (MDRD) Non-Af 95 BUN/Creatinine Ratio 18.5 Glucose 161 H Calcium 8.1 L Troponin I < 0.015 Assessment/Plan 1. Suspected acute Seizure, r/o CVA- Hx of seizure disorder and history of CVA. Head CTA shows no vaso-occlusive disease. Neck CTA shows no vaso-occlusive disease. Brain CT shows possible acute on chronic ischemia involving the right parietal occipital lobe. Obtain MRI of brain. IV Keppra. NPO. ST/PT/OT. Seizure precautions. Neurology consult. Neuro checks/[facility]. Rectal aspirin. Check HA1C. Check lipid panel in a.m. IV fluids. Tox screen. 2. CAD status post PCI-LOPEZ to mid LAD, proximal diag 10/19. Rectal aspirin. Resume statin, plavix when safe for PO. Follows with Dr. Doherty. Stress echo 01/24/18 with EF 55%, negative for ischemia. 3. Hyperlipidemia-continue statin when no longer NPO. 4. Tobacco dependence- Encourage smoking cessation. DVT Prophylaxis-Lovenox This patient was seen by JOSE MARIA Sheets under the supervision of Dr. Steele.
--- NOTE | 2018-02-12 15:32 | HP.PCM_ITS ---
Problem List (1) Hyperlipidemia Status: Chronic Qualifiers: (2) Atherosclerotic heart disease of [place] coronary artery without angina pectoris Status: Chronic Qualifiers: Comment: 3.0 X 32 mm Synergy LOPEZ to mid LAD; 2.5 x 16 MM Synergy LOPEZ to second diagonal per Dr. Doherty @ [facility] (3) Stented coronary artery Status: Chronic Comment: 3.0 X 32 mm Synergy LOPEZ to mid LAD; 2.5 x 16 MM Synergy LOPEZ to second diagonal per Dr. Doherty @ [facility] (4) Atrial septal aneurysm Status: Chronic (5) Abnormal electrocardiogram Status: Chronic (6) Nicotine dependence Status: Chronic Qualifiers: History of Present Illness Date of Admission: 02/12/18 Chief Complaint: Unresponsiveness, witnessed seizure. The patient is a 62 year old M who presents emergency room due to witnessed seizure followed by episode of unresponsiveness. Patient is nonverbal during assessment and unable to provide HPI. Family at bedside, however they were not present during seizure/unresponsive events. Family reports patient had a heart attack 2 weeks ago. They state he has been well since that time. They note his last seizure was about 1 year ago. Daughter at bedside states patient has been taking his prescribed medications to her knowledge. He does not follow with a neurologist. Per family, patient was with a friend today when he collapsed to the floor and had jerking movements of his extremities. He was noted by EMS to have fixed gaze and unresponsive. Sister reports patient with history of petit mal seizures. His other past medical history includes CAD status post PCI, history of CVA, hyperlipidemia, tobacco dependence. Past Medical History Past Medical History (Chronic Problems): Chronic Problems (Last Reviewed 01/23/18 @ 23:43 by Gregorio Bingham MD) Hyperlipidemia (Chronic) Atherosclerotic heart disease of [place] coronary artery without angina pectoris (Chronic) 3.0 X 32 mm Synergy LOPEZ to mid LAD; 2.5 x 16 MM Synergy LOPEZ to second diagonal per Dr. Doherty @ [facility] Stented coronary artery (Chronic 10/06/17) 3.0 X 32 mm Synergy LOPEZ to mid LAD; 2.5 x 16 MM Synergy LOPEZ to second diagonal per Dr. Doherty @ [facility] Atrial septal aneurysm (Chronic) Abnormal electrocardiogram (Chronic) Nicotine dependence (Chronic) Medical History: Medical History (Last Reviewed 01/23/18 @ 23:43 by Gregorio Bingham MD) Atherosclerotic heart disease of [place] coronary artery without angina pectoris (Chronic) I25.10 3.0 X 32 mm Synergy LOPEZ to mid LAD; 2.5 x 16 MM Synergy LOPEZ to second diagonal per Dr. Doherty @ [facility] Atrial septal aneurysm (Chronic) I25.3 Abnormal electrocardiogram (Chronic) R94.31 Nicotine dependence (Chronic) F17.200 CVA (cerebral vascular accident) I63.9 MCA Infarct Chronic back pain M54.9, G89.29 Seizure R56.9 Allergies tuberculin, purified protein deriva Allergy (Verified 02/12/18 14:54) Swelling bumble bee stings Allergy (Severe, Uncoded 02/12/18 14:54) Anaphylaxis Home Medications: Ambulatory Orders Medication Instructions Recorded aspirin 81 mg tablet,delayed 81 mg PO QDAY 08/01/17 release atorvastatin 40 mg tablet 40 mg PO QHS tab 08/01/17 thiamine HCl (vitamin B1) 100 mg 100 mg PO QDAY 08/01/17 tablet levetiracetam 250 mg tablet 250 mg PO BID tab 10/03/17 clopidogrel 75 mg tablet 75 mg PO DAILY #90 tab 02/10/18 Surgical History: Surgical History (Last Reviewed 02/12/18 @ 15:45 by JOSE MARIA Sheets) Stented coronary artery (Chronic) Onset Date: 10/06/17 Z95.5 3.0 X 32 mm Synergy LOPEZ to mid LAD; 2.5 x 16 MM Synergy LOPEZ to second diagonal per Dr. Doherty @ [facility] History of lumbar puncture Onset Date: ~04/2017 Z98.890 finger surgery lymph node resection Psychiatric History: No pertinent psych hx Lives: Friends Smoking Status: Unknown if ever smoked Tobacco Use: Cigarettes - *Family History Maternal Family History: Family History (Last Reviewed 02/12/18 @ 15:45 by JOSE MARIA Sheets) Mother Myocardial infarction Brother Myocardial infarction History Items: - - mother with different types of cancer Paternal Family History: Family History (Last Reviewed 02/12/18 @ 15:45 by JOSE MARIA Sheets) Mother Myocardial infarction Brother Myocardial infarction History Items: - - Lung cancer Review of Systems Neurological: Reports: Seizures - Reported by family. Unable to obtain accurate/complete ROS d/t: Patient non-verbal at this time. Unable to ontain ROS. VTE Information - Inpt Only VTE Present on Admission: No VTE Mechan Device Prophylaxis: None VTE Pharm Prophylaxis ordered?: Yes - Physical Exam General: Alert, No apparent distress, - - Non-verbal. Unkempt. HEENT: Atraumatic, PERRLA, EOMI, Normocephalic Oral: Dry Mucosa Neck: Supple, No JVD, Negative Carotid Bruits Lungs: Clear to auscultation, Diminished Cardiovascular: Regular Rhythm, Normal S1, Normal S2, No murmurs, Tachycardic Abdomen: Bowel Sounds Present, Soft, Non Tender, Non-Distended Extremities: No clubbing, No cyanosis, No edema, Capillary Refill Less than 3 Seconds Skin: No rashes, No breakdown Musculoskeletal: No Tenderness to Palpation of Joints or Extremities Neurological: - - Follows some commands. Difficult to assess complete neuro status. Strength equal bilaterally. No facial droop. Psych/Mental Status: - - Unable to assess Vital Signs Pulse Resp BP Pulse Ox 70 16 149/73 H 99 02/12/18 14:19 02/12/18 14:19 02/12/18 14:19 02/12/18 14:49 Oxygen Flow Rate (L/min) 2 Oxygen Delivery Method Nasal Cannula Weight: 148 lb 3.2 oz Body Mass Index (BMI) 22.5 Laboratory Tests Past 24 Hrs 02/12/18 02/12/18 14:29 14:29 WBC 10.8 RBC 4.36 L Hgb 13.9 Hct 42.1 MCV 96.6 H MCH 31.9 MCHC 33.0 RDW 13.2 RDW Differential 46.9 H Plt Count 275 MPV 9.5 Immature Gran % (Auto) 0.600 Neut % (Auto) 48.7 Lymph % (Auto) 36.8 [place] % (Auto) 6.8 Eos % (Auto) 6.5 H Baso % (Auto) 0.6 Absolute Neuts (auto) 5.3 Absolute Lymphs (auto) 3.97 Total Counted Not Reportable Sodium 139 Potassium 3.7 Chloride 106 Carbon Dioxide 28.0 Anion Gap 5 BUN 16 Creatinine 0.87 Estim Creat Clear Calc 82.63 Est GFR (MDRD) Af Amer 114 Est GFR (MDRD) Non-Af 95 BUN/Creatinine Ratio 18.5 Glucose 161 H Calcium 8.1 L Troponin I < 0.015 Assessment/Plan 1. Suspected acute Seizure, r/o CVA- Hx of seizure disorder and history of CVA. Head CTA shows no vaso-occlusive disease. Neck CTA shows no vaso-occlusive disease. Brain CT shows possible acute on chronic ischemia involving the right parietal occipital lobe. Obtain MRI of brain. IV Keppra. NPO. ST/PT/OT. Seizure precautions. Neurology consult. Neuro checks/[facility]. Rectal aspirin. Check HA1C. Check lipid panel in a.m. IV fluids. Tox screen. 2. CAD status post PCI-LOPEZ to mid LAD, proximal diag 10/19. Rectal aspirin. Resume statin, plavix when safe for PO. Follows with Dr. Doherty. Stress echo 01/24/18 with EF 55%, negative for ischemia. 3. Hyperlipidemia-continue statin when no longer NPO. 4. Tobacco dependence- Encourage smoking cessation. DVT Prophylaxis-Lovenox This patient was seen by JOSE MARIA Sheets under the supervision of Dr. Steele.
[2018-02-12 17:09] LABS: Magnesium 1.9 mg/dL (1.6-2.6); Thyroid Stim Hormone (TSH) 2.96 uIU/mL (0.358-3.74)
[2018-02-12] MEDS: Aspirin E.C. 81 MG Tablet PO (18:36)
--- NOTE | 2018-02-13 00:12 | NURSING ---
This RN entered pt room approximately 2029, pt woke and allowed this RN to assess vital signs and iv sites. Pt was calm at this time. Shortly thereafter prestressed concrete laborer entered and explained that she was going to draw blood for another test per doctors orders. Pt became suddenly very withdrawn and displayed paranoid behavior. Looking rapidly around the room and recoiling at requests to look for venipuncture sites. Pt stated multiple times that they already janeth blood and that they had enough. He then quickly got out of bed and said that he needed to use the restroom. Pt was insisting that his bathroom door be closed. This RN explained for his safety that we had to leave the door open. Pt became increasingly more agitated then lunged at the bathroom door attempting to slam it closed. This RN again explained it was not safe for the door to be closed and asked that a code reed be called to ensure staff safety. Pt was consistently agitated and verbalizing desire to be left alone and to leave. Dr. Valdivia was paged and pt family member Gregorio was called. Pt was evaluated by Dr. Valdivia who stated that pt could sign his own AMA and transportation was arranged through Gregorio.
--- NOTE | 2018-02-13 00:22 | NURSING ---
02/12/18 @ 2100-Pt was demanding that he be given his cell phone. Upon investigation no cell phone was found. Three pocket knives were however discovered and retained for return to patient at discharge. Pt family member came to transport patient and stated that pt never had his cell phone here.
== END 2018-02-12 21:40 | disposition left against medical advice (07) ==
LOC: ED 15:17 → PCU 16:13 → ED 02-13 09:15
PROVIDERS: Admitting Provider Family Medicine; Emergency Provider Emergency Medicine; Referring Provider Family Medicine; Visit Provider Family Medicine
DX: G40.909 Epilepsy, unspecified, not intractable, without status epilepticus (principal); Z86.73 Personal history of transient ischemic attack (TIA), and cerebral infarction without residual deficits; I25.10 Atherosclerotic heart disease of native coronary artery without angina pectoris; E78.5 Hyperlipidemia, unspecified; Z79.899 Other long term (current) drug therapy; Z79.82 Long term (current) use of aspirin; R94.31 Abnormal electrocardiogram [ECG] [EKG]; Z95.5 Presence of coronary angioplasty implant and graft; Z79.02 Long term (current) use of antithrombotics/antiplatelets; F17.210 Nicotine dependence, cigarettes, uncomplicated
CPT/HCPCS: 36415; 70450; 70496; 70498; 71045; 80048; 83735; 84443; 84484; 85025; 93005; 99285; 99406; A4216

== ENCOUNTER 2018-02-13 09:59 | Inpatient (IN) | payer MEDICAID, SELFPAY ==
[2017-10-06 13:03] VITALS: BMI 22.4
[2018-02-13] VITALS (8 sets, daily range): BP systolic 130–150; BP diastolic 75–84; PULSE 71–103; RESP 12–18; TEMP 36.7–37.8; O2SAT 95–98; BMI 21.2; BMI 20.8
--- NOTE | 2018-02-13 10:22 | ED.VISSUMM ---
- ER Visit Summary Date of Service: 02/13/18 Chief Complaint: Recurrent prolonged tonic-clonic seizure History of Present Illness: The patient is a 62 M history of prior CVA, CAD, [place], COPD with 2 cardiac stents. Patient has known history of seizure disorder for which she is on Keppra. He was admitted to the hospital yesterday and signed out AMA. Per his daughter who is at bedside he has been having current dependent mall seizures all morning and then had a prolonged 20-minute tonic-clonic seizure prior to arrival. This occurred approximately 1 hour ago. She denies any injuries. She states she is his power of employee benefits attorney. Physical Examination: Older male vital signs stable afebrile. Initial blood pressure 130/75. He does not look septic or toxic. His eyes are closed. He is in no distress. H EENT exam his face and scalp and head are atraumatic. No signs of trauma or bruising. Pupils are round reactive to light 2 mm bilaterally. Eyes were closed and had to open them. Mouth smells heavily of tobacco. C-spine nontender. Trachea midline. No lymphadenopathy. Lungs clear to auscultation bilaterally. Heart regular rhythm rate about 80 no murmur. Abdomen soft nontender. Normal bowel sounds no peritoneal signs. Pelvic girdle intact. Extremities are nontender. No deformity. Back nontender. Neurologically his eyes are closed but he is arousable. He does not follow commands at this time. Test Results: CBC shows normal white count and hemoglobin. Electrolytes unremarkable gap of 6. Normal creatinine. Glucose of 115. Emergency Department Course and Treatment: Patient will be observed in the ER. His daughter wanted me to check because she thought he had a scheduled MRI of his brain today. We called and due to him leaving AMA yesterday the MRI was canceled. Treatment Plan: Repeat exam patient is doing well at 1045. He is starting to become more arousable. He will answer limited questions at this time. I discussed with the patient's daughter and he will be admitted for observation. Disposition: Admission Impression: Acute recurrent breakthrough seizures with a history of seizure disorder. History of COPD, CAD with cardiac stents and prior CVA Anticoagulated on Plavix Tobacco abuse This note was generated with [employer] dictation software. It may contain incorrect words, spelling, and punctuation that were not noted in review of the chart prior to signing ED Disposition - Plan for ED Patient: Chief Complaint: Seizure Referrals: Roger Rodríguez,Esther Trotter [Primary Care Provider] -
--- NOTE | 2018-02-13 10:25 | ED.DCSUM_ITS ---
- ER Visit Summary Date of Service: 02/13/18 Chief Complaint: Recurrent prolonged tonic-clonic seizure History of Present Illness: The patient is a 62 M history of prior CVA, CAD, [place], COPD with 2 cardiac stents. Patient has known history of seizure disorder for which she is on Keppra. He was admitted to the hospital yesterday and signed out AMA. Per his daughter who is at bedside he has been having current dependent mall seizures all morning and then had a prolonged 20-minute tonic- clonic seizure prior to arrival. This occurred approximately 1 hour ago. She denies any injuries. She states she is his power of contract attorney. Physical Examination: Older male vital signs stable afebrile. Initial blood pressure 130/75. He does not look septic or toxic. His eyes are closed. He is in no distress. H EENT exam his face and scalp and head are atraumatic. No signs of trauma or bruising. Pupils are round reactive to light 2 mm bilaterally. Eyes were closed and had to open them. Mouth smells heavily of tobacco. C-spine nontender. Trachea midline. No lymphadenopathy. Lungs clear to auscultation bilaterally. Heart regular rhythm rate about 80 no murmur. Abdomen soft nontender. Normal bowel sounds no peritoneal signs. Pelvic girdle intact. Extremities are nontender. No deformity. Back nontender. Neurologically his eyes are closed but he is arousable. He does not follow commands at this time. Test Results: CBC shows normal white count and hemoglobin. Electrolytes unremarkable gap of 6. Normal creatinine. Glucose of 115. Emergency Department Course and Treatment: Patient will be observed in the ER. His daughter wanted me to check because she thought he had a scheduled MRI of his brain today. We called and due to him leaving AMA yesterday the MRI was canceled. Treatment Plan: Repeat exam patient is doing well at 1045. He is starting to become more arousable. He will answer limited questions at this time. I discussed with the patient's daughter and he will be admitted for observation. Disposition: Admission Impression: Acute recurrent breakthrough seizures with a history of seizure disorder. History of COPD, CAD with cardiac stents and prior CVA Anticoagulated on Plavix Tobacco abuse This note was generated with [employer] dictation software. It may contain incorrect words, spelling, and punctuation that were not noted in review of the chart prior to signing ED Disposition - Plan for ED Patient: Chief Complaint: Seizure Referrals: Roger Rodríguez,Esther Trotter [Primary Care Provider] -
[2018-02-13 10:31] LABS: Absolute Lymphocyte Count 1.42 X10^3/ul (0.83-4.51); Absolute Neutrophil Count 7.9 X10^3/uL (2.0-7.7); Basophil# 0.01 X10^3/uL; Basophil% 0.1 % (0-1); Eosinophil# 0.03 X10^3/uL; Eosinophils% 0.3 % (0-5); Hematocrit 43.5 % (40-54); Hemoglobin 14.6 g/dl (13.0-16.5); Lymphocyte # 1.42 X10^3/ul (4.0); Mean Corp Hgb Conc 33.6 g/gl (32-36); Mean Corpuscular Volume 95.4 fL (80-94); Mean Platelet Vol. 9.5 fl (6.2-12.0); Monocyte# 0.79 X10^3/uL; Monocyte% 7.8 % (0-10); Neutrophil # 7.89 X10^3/uL (2.7-7.7); Neutrophil % 77.6 % (47-70); Platelet Count 282 K/mm3 (150-450); RBC Distribution Width CV 13.2 % (11.6-14.6); RBC Distribution Width SD 45.1 fl (35.1-43.9); Red Blood Count 4.56 M/mm3 (4.6-6.2); White Blood Count 10.2 K/mm3 (4.4-11.0)
[2018-02-13 10:32] LABS: POSITIVE COUNT NO; POSITIVE DIFFERENTIAL NO; POSITIVE MORPHOLOGY NO
[2018-02-13 10:38] LABS: Anion Gap 6 (5-15); BUN 12 mg/dL (7-18); BUN/Creat Ratio 13.7 RATIO (10-20); Calcium,Total 8.3 mg/dL (8.5-10.1); Chloride 100 mmol/L (98-107); Creatinine, Serum 0.88 mg/dL (0.70-1.30); EST Glomerular Filtration Rate 93 mL/min (>60); Est Glom Filt Rate - Afr Amer 112 mL/min (>60); Estimated Creatinine Clearance 77.17 ml/min; Glucose 115 mg/dL (74-106); Sodium Level 136 mmol/L (136-145)
--- NOTE | 2018-02-13 10:45 | NURSING ---
HOSPITALIST PAGED, DR CHU CALLED BACK
--- NOTE | 2018-02-13 10:47 | PCM.HP.STD ---
History of Present Illness Date of Admission: 02/13/18 Chief Complaint: seizure The patient is a 62 year old M with an extensive past medical history as listed below and includes CVA, CAD status post 2 stents, and COPD. He also has a known seizure disorder and is on Keppra. He was admitted to the ED this morning after he was found by his daughter having prolonged 20-minute tonic-clonic seizures according to ED notes. He had been having small seizures all morning and then had a major tonic-clonic seizure. Patient was seen in the ED yesterday was on a complaint and sign out AMA when MR. At time of review, patient was very somnolent and could not answer any questions. Only kept on asking was well my where my a could not answer any questions. Unable to do complains of review of systems on account of patient's somnolence. It is unknown whether he has been compliant with his Keppra. On admission in the ED, temperature was 100 Fahrenheit, blood pressure 150/82, pulse rate of 17 and respiratory rate was 16. Chemistry was significant only for calcium of 8.3 and CBC was essentially normal. He did have a CT angiogram of the brain and neck done yesterday when he came into the ED which showed no evidence of vaso-occlusive disease only showed old cortical based ischemic infarct with cystic encephalomalacia and focal atrophy in the right posterior temporoparietal lobes. CT angiogram of the neck showed 50% stenosis of both subclavian arteries at their subclavian origins in the coronal MIPs. He is being admitted to be managed for intractable seizures. [] Past Medical History Past Medical History (Chronic Problems): Chronic Problems (Last Reviewed 02/13/18 @ 12:07 by Nilesh Olivas MD) Hyperlipidemia (Chronic) Atherosclerotic heart disease of [place] coronary artery without angina pectoris (Chronic) 3.0 X 32 mm Synergy LOPEZ to mid LAD; 2.5 x 16 MM Synergy LOPEZ to second diagonal per Dr. Doherty @ [facility] Stented coronary artery (Chronic 10/06/17) 3.0 X 32 mm Synergy LOPEZ to mid LAD; 2.5 x 16 MM Synergy LOPEZ to second diagonal per Dr. Doherty @ [facility] Atrial septal aneurysm (Chronic) Abnormal electrocardiogram (Chronic) Nicotine dependence (Chronic) Medical History: Medical History (Last Reviewed 02/13/18 @ 12:07 by Nilesh Olivas MD) Atherosclerotic heart disease of [place] coronary artery without angina pectoris (Chronic) I25.10 3.0 X 32 mm Synergy LOPEZ to mid LAD; 2.5 x 16 MM Synergy LOPEZ to second diagonal per Dr. Doherty @ [facility] Atrial septal aneurysm (Chronic) I25.3 Abnormal electrocardiogram (Chronic) R94.31 Nicotine dependence (Chronic) F17.200 CVA (cerebral vascular accident) I63.9 MCA Infarct Chronic back pain M54.9, G89.29 Seizure R56.9 Allergies tuberculin, purified protein deriva Allergy (Verified 02/13/18 09:59) Swelling bumble bee stings Allergy (Severe, Uncoded 02/13/18 09:59) Anaphylaxis Home Medications: Ambulatory Orders Medication Instructions Recorded aspirin 81 mg tablet,delayed 81 mg PO QDAY 08/01/17 release atorvastatin 40 mg tablet 40 mg PO QHS tab 08/01/17 thiamine HCl (vitamin B1) 100 mg 100 mg PO QDAY 08/01/17 tablet levetiracetam 250 mg tablet 250 mg PO BID tab 10/03/17 clopidogrel 75 mg tablet 75 mg PO DAILY #90 tab 02/10/18 Doxepin HCl 10 mg PO QHS 02/13/18 Surgical History: Surgical History (Last Reviewed 02/12/18 @ 15:45 by JOSE MARIA Sheets) Stented coronary artery (Chronic) Onset Date: 10/06/17 Z95.5 3.0 X 32 mm Synergy LOPEZ to mid LAD; 2.5 x 16 MM Synergy LOPEZ to second diagonal per Dr. Doherty @ [facility] History of lumbar puncture Onset Date: ~04/2017 Z98.890 finger surgery lymph node resection Psychiatric History: No pertinent psych hx Smoking Status: Current every day smoker Tobacco Use: Cigarettes - *Family History Maternal Family History: Family History (Last Reviewed 02/13/18 @ 12:07 by Nilesh Olivas MD) Mother Myocardial infarction Brother Myocardial infarction History Items: - - mother with different types of cancer Paternal Family History: Family History (Last Reviewed 02/13/18 @ 12:07 by Nilesh Olivas MD) Mother Myocardial infarction Brother Myocardial infarction History Items: - - Lung cancer Review of Systems Unable to obtain accurate/complete ROS d/t: patient is somnolent and unable to answer questions. VTE Information - Inpt Only VTE Present on Admission: No VTE Pharm Prophylaxis ordered?: Yes - Physical Exam General: Disoriented, Lethargic, - - somnolent, confused, mumbling in response to questions HEENT: Atraumatic Oral: Dry Mucosa Neck: Supple, No JVD, Negative Carotid Bruits, Negative Hepatojugular Reflux, No Nodes Lungs: Clear to auscultation, Normal air movement, No rhonchi, No wheeze, No rales Cardiovascular: Regular rate, Regular Rhythm, Normal S1, Normal S2, No murmurs Abdomen: Bowel Sounds Present, Soft, Non Tender, Non-Distended, No Hepato-splenomegaly Extremities: No clubbing, No cyanosis, No edema, Capillary Refill Less than 3 Seconds Skin: No rashes, No breakdown Musculoskeletal: No Tenderness to Palpation of Joints or Extremities Lymphatic: No Cervical, Supraclavicular, or Inguinal Adenopathy Neurological: - - very lethargic, GCS is 12. moves all limbs spontaneously. Vital Signs Temp Pulse Resp BP Pulse Ox 99.9 F H 82 12 130/75 H 98 02/13/18 10:00 02/13/18 10:00 02/13/18 10:00 02/13/18 10:00 02/13/18 10:00 Oxygen Delivery Method Room Air Weight: 139 lb 15.896 oz Body Mass Index (BMI) 21.2 Laboratory Tests Past 24 Hrs 02/13/18 02/13/18 10:13 10:13 WBC 10.2 RBC 4.56 L Hgb 14.6 Hct 43.5 MCV 95.4 H MCH 32.0 MCHC 33.6 RDW 13.2 RDW Differential 45.1 H Plt Count 282 MPV 9.5 Immature Gran % (Auto) 0.200 Neut % (Auto) 77.6 H Lymph % (Auto) 14.0 L [place] % (Auto) 7.8 Eos % (Auto) 0.3 Baso % (Auto) 0.1 Absolute Neuts (auto) 7.9 H Absolute Lymphs (auto) 1.42 Total Counted Not Reportable Sodium 136 Potassium 4.0 Chloride 100 Carbon Dioxide 30.0 Anion Gap 6 BUN 12 Creatinine 0.88 Estim Creat Clear Calc 77.17 Est GFR (MDRD) Af Amer 112 Est GFR (MDRD) Non-Af 93 BUN/Creatinine Ratio 13.7 Glucose 115 H Calcium 8.3 L Assessment/Plan 1. Intractable seizures, likely breakthrough seizure Has a history of seizures. Unknown if he has been compliant with his Keppra. Was seen yesterday in the ED and left AMA. Came in this morning with chronic tonic-clonic seizure that lasted about 20 minutes according to his daughter. Patient is deeply somnolent and is unknown whether this is due to postictal drowsiness or otherwise. Upon arrival to the floor had a syncopal episode as well. vitals significant for fever Admit to PCU with telemetry Neurology consult. Resume Keppra. Will benefit from IV Ativan as needed for seizures. CT angiogram of head and neck showed evidence of old infarct and 50% stenosis of both subclavian arteries at this conclusion origins. Will order EEG and brain MRI. Keep n.p.o. for now to protect his airway until he passes swallow evaluation 2. CAD s/p stents x 2: on aspirin, plavix and statin. Will contiue 3. COPD: breathing treatments 4. DVT prophylaxis: lovenox Code Visit Inpatient E&M: 16613 Init Hosp L3
--- NOTE | 2018-02-13 12:02 | PCM.CONS.GEN ---
Reason for Consult Date of Consultation: 02/13/18 Reason for Consultation: seizure History of Present Illness: The patient is a 62 year old with history of seizures over the past several years, managed at the [facility], apparently due to a brain infection. takes keppra 750/day, family reports he becomes upset and has seizures. history of depression. currently pt unable to give history. history obtained from family. history of incidental cva found on imaging per family. family describes right hand shaking followed by full body shaking. no tongue biting. Past Medical History Past Medical History (Chronic Problems): Chronic Problems (Last Reviewed 02/13/18 @ 12:07 by Nilesh Olivas MD) Hyperlipidemia (Chronic) Atherosclerotic heart disease of [place] coronary artery without angina pectoris (Chronic) 3.0 X 32 mm Synergy LOPEZ to mid LAD; 2.5 x 16 MM Synergy LOPEZ to second diagonal per Dr. Doherty @ [facility] Stented coronary artery (Chronic 10/06/17) 3.0 X 32 mm Synergy LOPEZ to mid LAD; 2.5 x 16 MM Synergy LOPEZ to second diagonal per Dr. Doherty @ [facility] Atrial septal aneurysm (Chronic) Abnormal electrocardiogram (Chronic) Nicotine dependence (Chronic) Medical History: Medical History (Last Reviewed 02/13/18 @ 12:07 by Nilesh Olivas MD) Atherosclerotic heart disease of [place] coronary artery without angina pectoris (Chronic) I25.10 3.0 X 32 mm Synergy LOPEZ to mid LAD; 2.5 x 16 MM Synergy LOPEZ to second diagonal per Dr. Doherty @ [facility] Atrial septal aneurysm (Chronic) I25.3 Abnormal electrocardiogram (Chronic) R94.31 Nicotine dependence (Chronic) F17.200 CVA (cerebral vascular accident) I63.9 MCA Infarct Chronic back pain M54.9, G89.29 Seizure R56.9 Allergies tuberculin, purified protein deriva Allergy (Verified 02/13/18 09:59) Swelling bumble bee stings Allergy (Severe, Uncoded 02/13/18 09:59) Anaphylaxis Home Medications: Ambulatory Orders Medication Instructions Recorded aspirin 81 mg tablet,delayed 81 mg PO QDAY 08/01/17 release atorvastatin 40 mg tablet 40 mg PO QHS tab 08/01/17 thiamine HCl (vitamin B1) 100 mg 100 mg PO QDAY 08/01/17 tablet levetiracetam 250 mg tablet 250 mg PO BID tab 07/02/18 clopidogrel 75 mg tablet 75 mg PO DAILY #90 tab 02/10/18 Doxepin HCl 10 mg PO QHS 02/13/18 Surgical History: Surgical History (Last Reviewed 02/12/18 @ 15:45 by JOSE MARIA Sheets) Stented coronary artery (Chronic) Onset Date: 10/06/17 Z95.5 3.0 X 32 mm Synergy LOPEZ to mid LAD; 2.5 x 16 MM Synergy LOPEZ to second diagonal per Dr. Doherty @ [facility] History of lumbar puncture Onset Date: ~04/2017 Z98.890 finger surgery lymph node resection Psychiatric History: No pertinent psych hx Smoking Status: Current every day smoker - *Family History Maternal Family History: Family History (Last Reviewed 02/13/18 @ 12:07 by Nilesh Olivas MD) Mother Myocardial infarction Brother Myocardial infarction History Items: - - mother with different types of cancer Paternal Family History: Family History (Last Reviewed 02/13/18 @ 12:07 by Nilesh Olivas MD) Mother Myocardial infarction Brother Myocardial infarction History Items: - - Lung cancer Review of Systems Constitutional: Denies: Chills, Fever, Weight Change HEENT: Denies: Head Aches, Sinus Congestion, Sinus Drainage Cardiovascular: Denies: Chest Pain, Palpitations Respiratory: Denies: Cough, Shortness of breath at rest, Sputum production Gastrointestinal: Denies: Abdominal Pain, Nausea, Vomiting Genitourinary: Denies: Dysuria Musculoskeletal: Denies: Joint Pain, Joint Tenderness Skin: Denies: Rash, Wounds Neurological: Denies: Numbness, Tingling, Focal weakness Psychiatric: Denies: Anxiety, Depression, Homicidal Ideations, Suicidal Ideations Hematologic/ Lymphatic: Denies: Easy Bruising, Easy Bleeding - Physical Exam General: Alert, Confused, Disoriented, Non-Cooperative Neurological: Cranial nerves II-XII grossly intact, Neuro grossly intact, Motor Exam 5/5 strength throughout, - - whitt, withdraws x4 to pain in the midst of shaking Psych/Mental Status: Agitated Vital Signs Temp Pulse Resp BP Pulse Ox 37.8 C H 71 16 150/82 H 95 02/13/18 11:16 02/13/18 11:16 02/13/18 11:16 02/13/18 11:16 02/13/18 11:16 Oxygen Delivery Method Room Air Weight: 62.1 kg Body Mass Index (BMI) 20.8 Laboratory Tests Past 24 Hrs 02/13/18 02/13/18 10:13 10:13 WBC 10.2 RBC 4.56 L Hgb 14.6 Hct 43.5 MCV 95.4 H MCH 32.0 MCHC 33.6 RDW 13.2 RDW Differential 45.1 H Plt Count 282 MPV 9.5 Immature Gran % (Auto) 0.200 Neut % (Auto) 77.6 H Lymph % (Auto) 14.0 L [place] % (Auto) 7.8 Eos % (Auto) 0.3 Baso % (Auto) 0.1 Absolute Neuts (auto) 7.9 H Absolute Lymphs (auto) 1.42 Total Counted Not Reportable Sodium 136 Potassium 4.0 Chloride 100 Carbon Dioxide 30.0 Anion Gap 6 BUN 12 Creatinine 0.88 Estim Creat Clear Calc 77.17 Est GFR (MDRD) Af Amer 112 Est GFR (MDRD) Non-Af 93 BUN/Creatinine Ratio 13.7 Glucose 115 H Calcium 8.3 L Current Medications Generic Name Dose Route Start Last Admin Trade Name Freq PRN Reason Stop Dose Admin Aspirin 81 mg 02/13/18 11:45 Ecotrin PO DAILY@0800 [facility] Atorvastatin Calcium 40 mg 02/13/18 22:00 Lipitor PO QHS [facility] Clopidogrel Bisulfate 75 mg 02/14/18 10:00 Plavix PO DAILY [facility] Doxepin HCl 10 mg 02/13/18 22:00 Sinequan PO QHS [facility] Enoxaparin Sodium 40 mg 02/14/18 10:00 Lovenox SC DAILY@1000 [facility] Levetiracetam 250 mg 02/13/18 22:00 Keppra Tablet PO BID [facility] Magnesium Hydroxide 30 ml 02/13/18 11:42 Milk Of Magnesia PO DAILY PRN PRN Constipation Nicotine 21 mg 02/14/18 10:00 Nicoderm Cq (Pbkc) TRANSDERM. 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
--- NOTE | 2018-02-13 12:06 | CON.PCM_ITS ---
Reason for Consult Date of Consultation: 02/13/18 Reason for Consultation: seizure History of Present Illness: The patient is a 62 year old with history of seizures over the past several years, managed at the [facility], apparently due to a brain infection. takes keppra 750/day, family reports he becomes upset and has seizures. history of depression. currently pt unable to give history. history obtained from family. history of incidental cva found on imaging per family. family describes right hand shaking followed by full body shaking. no tongue biting. Past Medical History Past Medical History (Chronic Problems): Chronic Problems (Last Reviewed 02/13/18 @ 12:07 by Nilesh Olivas MD) Hyperlipidemia (Chronic) Atherosclerotic heart disease of [place] coronary artery without angina pectoris (Chronic) 3.0 X 32 mm Synergy LOPEZ to mid LAD; 2.5 x 16 MM Synergy LOPEZ to second diagonal per Dr. Doherty @ [facility] Stented coronary artery (Chronic 10/06/17) 3.0 X 32 mm Synergy LOPEZ to mid LAD; 2.5 x 16 MM Synergy LOPEZ to second diagonal per Dr. Doherty @ [facility] Atrial septal aneurysm (Chronic) Abnormal electrocardiogram (Chronic) Nicotine dependence (Chronic) Medical History: Medical History (Last Reviewed 02/13/18 @ 12:07 by Nilesh Olivas MD) Atherosclerotic heart disease of [place] coronary artery without angina pectoris (Chronic) I25.10 3.0 X 32 mm Synergy LOPEZ to mid LAD; 2.5 x 16 MM Synergy LOPEZ to second diagonal per Dr. Doherty @ [facility] Atrial septal aneurysm (Chronic) I25.3 Abnormal electrocardiogram (Chronic) R94.31 Nicotine dependence (Chronic) F17.200 CVA (cerebral vascular accident) I63.9 MCA Infarct Chronic back pain M54.9, G89.29 Seizure R56.9 Allergies tuberculin, purified protein deriva Allergy (Verified 02/13/18 09:59) Swelling bumble bee stings Allergy (Severe, Uncoded 02/13/18 09:59) Anaphylaxis Home Medications: Ambulatory Orders Medication Instructions Recorded aspirin 81 mg tablet,delayed 81 mg PO QDAY 08/01/17 release atorvastatin 40 mg tablet 40 mg PO QHS tab 08/01/17 thiamine HCl (vitamin B1) 100 mg 100 mg PO QDAY 08/01/17 tablet levetiracetam 250 mg tablet 250 mg PO BID tab 07/02/18 clopidogrel 75 mg tablet 75 mg PO DAILY #90 tab 02/10/18 Doxepin HCl 10 mg PO QHS 02/13/18 Surgical History: Surgical History (Last Reviewed 02/12/18 @ 15:45 by JOSE MARIA Sheets) Stented coronary artery (Chronic) Onset Date: 10/06/17 Z95.5 3.0 X 32 mm Synergy LOPEZ to mid LAD; 2.5 x 16 MM Synergy LOPEZ to second diagonal per Dr. Doherty @ [facility] History of lumbar puncture Onset Date: ~04/2017 Z98.890 finger surgery lymph node resection Psychiatric History: No pertinent psych hx Smoking Status: Current every day smoker - *Family History Maternal Family History: Family History (Last Reviewed 02/13/18 @ 12:07 by Nilesh Olivas MD) Mother Myocardial infarction Brother Myocardial infarction History Items: - - mother with different types of cancer Paternal Family History: Family History (Last Reviewed 02/13/18 @ 12:07 by Nilesh Olivas MD) Mother Myocardial infarction Brother Myocardial infarction History Items: - - Lung cancer Review of Systems Constitutional: Denies: Chills, Fever, Weight Change HEENT: Denies: Head Aches, Sinus Congestion, Sinus Drainage Cardiovascular: Denies: Chest Pain, Palpitations Respiratory: Denies: Cough, Shortness of breath at rest, Sputum production Gastrointestinal: Denies: Abdominal Pain, Nausea, Vomiting Genitourinary: Denies: Dysuria Musculoskeletal: Denies: Joint Pain, Joint Tenderness Skin: Denies: Rash, Wounds Neurological: Denies: Numbness, Tingling, Focal weakness Psychiatric: Denies: Anxiety, Depression, Homicidal Ideations, Suicidal Ideations Hematologic/ Lymphatic: Denies: Easy Bruising, Easy Bleeding - Physical Exam General: Alert, Confused, Disoriented, Non-Cooperative Neurological: Cranial nerves II-XII grossly intact, Neuro grossly intact, Motor Exam 5/5 strength throughout, - - whitt, withdraws x4 to pain in the midst of shaking Psych/Mental Status: Agitated Vital Signs Temp Pulse Resp BP Pulse Ox 37.8 C H 71 16 150/82 H 95 02/13/18 11:16 02/13/18 11:16 02/13/18 11:16 02/13/18 11:16 02/13/18 11:16 Oxygen Delivery Method Room Air Weight: 62.1 kg Body Mass Index (BMI) 20.8 Laboratory Tests Past 24 Hrs 02/13/18 02/13/18 10:13 10:13 WBC 10.2 RBC 4.56 L Hgb 14.6 Hct 43.5 MCV 95.4 H MCH 32.0 MCHC 33.6 RDW 13.2 RDW Differential 45.1 H Plt Count 282 MPV 9.5 Immature Gran % (Auto) 0.200 Neut % (Auto) 77.6 H Lymph % (Auto) 14.0 L [place] % (Auto) 7.8 Eos % (Auto) 0.3 Baso % (Auto) 0.1 Absolute Neuts (auto) 7.9 H Absolute Lymphs (auto) 1.42 Total Counted Not Reportable Sodium 136 Potassium 4.0 Chloride 100 Carbon Dioxide 30.0 Anion Gap 6 BUN 12 Creatinine 0.88 Estim Creat Clear Calc 77.17 Est GFR (MDRD) Af Amer 112 Est GFR (MDRD) Non-Af 93 BUN/Creatinine Ratio 13.7 Glucose 115 H Calcium 8.3 L Current Medications Generic Name Dose Route Start Last Admin Trade Name Freq PRN Reason Stop Dose Admin Aspirin 81 mg 02/13/18 11:45 Ecotrin PO DAILY@0800 [facility] Atorvastatin Calcium 40 mg 02/13/18 22:00 Lipitor PO QHS [facility] Clopidogrel Bisulfate 75 mg 02/14/18 10:00 Plavix PO DAILY [facility] Doxepin HCl 10 mg 02/13/18 22:00 Sinequan PO QHS [facility] Enoxaparin Sodium 40 mg 02/14/18 10:00 Lovenox SC DAILY@1000 [facility] Levetiracetam 250 mg 02/13/18 22:00 Keppra Tablet PO BID [facility] Magnesium Hydroxide 30 ml 02/13/18 11:42 Milk Of Magnesia PO DAILY PRN PRN Constipation Nicotine 21 mg 02/14/18 10:00 Nicoderm Cq (Pbkc) TRANSDERM. 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
[2018-02-13] MEDS: LORazepam 2 MG/ML Syringe 0.5 MG IV ×2 (12:15→16:09)
--- NOTE | 2018-02-13 13:00 | CASEMGMT ---
Social Work PCU Referral: Received call while patient in the ED asking for social work, as daughter present and wanting to talk to social staff worker about power of ip technology transactions attorney for health care. Informant: Daughter Octavia Monahan ([phone], cell or [phone], home). Also present was a [id number] to Octavia, patient's roommate (also identified as an adopted son) Geraldo, and near the end patient's brother Esteban arrived. Patient in room, though not participating in conversation. Living Situation: Mobile home with Geraldo. 4 steps into the home and one small step from screen porch into the home. 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 Self Care: Patient is reported to be unsteady at home, has a cane to use but does not use it. Patient will sometimes accept help getting in and out of shower, but will not accept help in actual personal care. Geraldo helps with upkeep of the home, meals, and daughter or Geraldo set up patient's medications weekly. Financial: Patient has been on SSI disability for 2 years, receives a little over 700 a month; disability reportedly due to back issues and muscle tears. 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 PCP: Esther Trotter Pharmacy: [facility] Advanced Directives: Octavia reports to be the POAHC for patient, that this was done at [facility] 2 years ago and then later reported done 3 years ago. This teletypewriter operator could not find directives on file, so asked the forms be brought. Let daughter know that need forms on chart, otherwise no proof that directives do in fact exist. Support System: Octavia, Geraldo, or the [id number]. Family reports patient is never left at home alone, that family is often reminding patient what to do. Octavia reports it has been for about 2 years now that family has been overseeing patient's daily needs are being met. Patient has 2 dogs, who daughter reports the patient is very protective over. Behavioral Health: Octavia reports patient was depressed after a grandson about 5 years ago and then 3 years ago patient's . Family denies any past mental health treatment, nor patient ever having thoughts or threats of harm to self or others. Patient has no past inpatient mental health treatment, no counseling, and has refused antidepressants in the past. Family denies patient ever having any drug or alcohol abuse or dependence issues. Patient does smoke about 2 packs of cigarettes a day. Mental Status: Patient seeming to be confused during social work visit, agitated, and then falling asleep. Patient stared intensely at this teletypewriter operator and others in the room, shaking arms, and not participating meaningfully when questions asked. Daughter reports this is normal behavior for patient after seizure activity. Daughter reports seizures are sometimes brought on by stress. Geraldo reports the [place] can be stressful with drama occurring around patient's home. Daughter reports patient has been hallucinating, seeing things and paranoid since yesterday, 02-12-18. Daughter reports outside of post seizure activity, patient has never had any hallucinations or psychosis symptoms (other than one time patient drank so much he saw pink elephants; not correlating with reports that patient has never drank). Family concerns: Daughter upset that patient signed self out AMA yesterday and wants to ensure that this does not happen again. Daughter reports to be the POAHC and asks that patient not be allowed to sign self out. Listened to concerns, touched on patient being able to make own decisions (not deemed incompetent), limitations of POAHC, and for POAHC to be considered in decision making this document needs to be on chart. Daughter reports will be looking at finding the forms. Daughter interested in looking at resources for patient, such as home delivered meals or even home health aide. Educated to meals on wheels and longshore equipment operator care consultation thorough the OA. Let daughter know that when patient is more alert and able to participate someone will be back to discuss options. Interventions: Education to family on some resources in the community. Reinforced need to get the advanced directives to the hospital. Updated PCU social staff worker Albertina LAIRD, and product mgmt dev manager Prashant Valera. Plan: Social work/Case management to follow for emotional support and resource needs. -ADRIANNA Newton, EMERGENCY MANAGEMENT DIRECTOR
[2018-02-13] MEDS: levETIRAcetam 250 MG Tablet PO (13:04)
[2018-02-13] MEDS: Thiamine Hydrochloride 100 MG Tablet PO (13:04)
[2018-02-13] MEDS: Aspirin E.C. 81 MG Tablet PO (13:04)
[2018-02-13] MEDS: Clopidogrel Bisulfate 75 MG Tablet PO (13:05)
--- NOTE | 2018-02-13 15:47 | MRI_ITS ---
STUDY: MRI BRAIN WITH AND WITHOUT CONTRAST REASON FOR EXAM: Male, 62 years old. CVA TECHNIQUE: Standardized multiplanar fat and water weighted pulse sequences were obtained. 6 ml of Gadavist contrast material was administered intravenously for the contrast portion of the examination. COMPARISON: CT of the brain February 12, 2018 FINDINGS: Normal size of the ventricles and extra-axial spaces for the patient's age. There is gliosis and encephalomalacia in the right parietal lobe with dilatation of the occipital horn of the right lateral ventricle consistent with old infarct. Minor periventricular white matter ischemic change without evidence for acute infarct Normal bilateral basal ganglia. Normal thalami. There is no extra-axial fluid accumulation. Normal flow voids within the major intracranial circulation suggesting patency by spin echo criteria. Normal venous enhancement. There is no enhancing intra-axial or extra-axial abnormality. Normal sella turcica, pituitary gland, infundibular stalk, optic chiasm and hypothalamus. Normal tectal plate and pineal gland. Normal midbrain, arcelia and medulla. Normal cerebellum. Normal basal cisterns. Normal bilateral temporal bones. Normal bilateral internal auditory canals. No demonstrated orbital abnormality, within the constraints of a routine brain study. There is mucous retention cyst in the right maxillary antrum and mucosal thickening in the sphenoid sinus Normal calvarium and skull base. Normal visualized soft tissue structures. Normal visualized upper cervical spine. 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
[2018-02-13] MEDS: 0.9% NaCl Peripheral Flush Adult/Peds IV (16:09)
[2018-02-13] MEDS: Ondansetron 4 MG/2 ML Vial IV (16:23)
[2018-02-13] MEDS: LORazepam 2 MG/ML Syringe 1 MG IV (17:00)
--- NOTE | 2018-02-13 18:03 | RAD_ITS ---
STUDY: X-RAY CHEST REASON FOR EXAM: Male, 62 years old. Fever. TECHNIQUE: PA and lateral views of the chest. COMPARISON: February 12, 2018 FINDINGS: The lungs are hyperexpanded. There is no acute infiltrate or mass. There is no demonstrated pleural abnormality. Normal size heart. Normal mediastinum and mariluz. Normal visualized pulmonary arteries. Normal visualized aortic arch and descending thoracic aorta. Normal visualized thoracic spine. Normal visualized ribs, clavicles, and shoulders. There is no demonstrated abnormality of the visualized soft tissue structures of the upper abdomen. RAD/Chest PA and Lateral IMPRESSION: No acute cardiopulmonary disease or interval change. Electronically Signed: Rufus Baig DO at 18:29 EST Tel [phone], Service support ,
[2018-02-13] MEDS: Doxepin Hydrochloride 10 MG Capsule PO (21:09)
[2018-02-13] MEDS: Acetaminophen 325 MG Tablet 650 MG PO (21:09)
[2018-02-13] MEDS: levETIRAcetam 750 MG Tablet PO (21:09)
[2018-02-13] MEDS: Famotidine 20 MG Tablet PO (21:09)
[2018-02-13] MEDS: Atorvastatin Calcium 40 MG Tablet PO (21:09)
[2018-02-14 02:47] VITALS: BP 132/77; PULSE 73; RESP 18; TEMP 36.8; O2SAT 96
[2018-02-14 02:54] LABS: Bacteria 0 SEEN /hpf (None Seen); Mucous, Urine 0 SEEN /hpf (<or=2+); Squamous Epithelial Cells - UA 0 SEEN /hpf (0-5); White Blood Cells 0 SEEN /hpf (0-5)
[2018-02-14 02:56] LABS: Color, Urine Yellow (Yellow); Glucose, Dipstick Normal (Normal); Ketone-Dipstick Negative (Negative); Leukocyte Esterase-Dipstick Negative /ul (Negative); Nitrite-Dipstick Negative (Negative); Occult Blood-Urine 50 /ul (Negative); Protein-Dipstick Negative (Negative); Urine Bilirubin Dipstick Negative (Negative); Urine Clarity Clear (Clear); Urine Urobilinogen Normal (Normal)
[2018-02-14 03:01] VITALS: PULSE 74
[2018-02-14 03:03] LABS: Red Blood Cells-Urine 0-5 SEEN /hpf (0-5)
[2018-02-14 05:49] LABS: Absolute Neutrophil Count 4.9 X10^3/uL (2.0-7.7); Basophil# 0.01 X10^3/uL; Basophil% 0.1 % (0-1); Eosinophil# 0.13 X10^3/uL; Eosinophils% 1.7 % (0-5); Hemoglobin 14.2 g/dl (13.0-16.5); Lymphocyte % 24.5 % (19-41); Mean Corp Hgb Conc 33.8 g/gl (32-36); Mean Corpuscular Hgb 32.2 pg (27.0-32.0); Mean Corpuscular Volume 95.2 fL (80-94); Mean Platelet Vol. 9.5 fl (6.2-12.0); Monocyte# 0.82 X10^3/uL; Monocyte% 10.6 % (0-10); Neutrophil # 4.88 X10^3/uL (2.7-7.7); Neutrophil % 62.8 % (47-70); Platelet Count 266 K/mm3 (150-450); RBC Distribution Width CV 13.1 % (11.6-14.6); RBC Distribution Width SD 44.4 fl (35.1-43.9); Red Blood Count 4.41 M/mm3 (4.6-6.2); White Blood Count 7.8 K/mm3 (4.4-11.0)
[2018-02-14 05:53] LABS: POSITIVE COUNT NO; POSITIVE DIFFERENTIAL NO; POSITIVE MORPHOLOGY NO
[2018-02-14 06:09] LABS: Anion Gap 8 (5-15); BUN 16 mg/dL (7-18); BUN/Creat Ratio 20.6 RATIO (10-20); Calcium,Total 8.4 mg/dL (8.5-10.1); Chloride 101 mmol/L (98-107); Creatinine, Serum 0.78 mg/dL (0.70-1.30); EST Glomerular Filtration Rate 107 mL/min (>60); Est Glom Filt Rate - Afr Amer 130 mL/min (>60); Estimated Creatinine Clearance 85.14 ml/min; Glucose 121 mg/dL (74-106); Potassium 4.1 mmol/L (3.5-5.1); Sodium Level 137 mmol/L (136-145)
[2018-02-14 07:11] VITALS: PULSE 73
[2018-02-14] MEDS: LORazepam 2 MG/ML Syringe 0.5 MG IV ×2 (07:43→10:00)
[2018-02-14] MEDS: 0.9% NaCl Peripheral Flush Adult/Peds IV (07:43)
[2018-02-14] MEDS: Ondansetron 4 MG/2 ML Vial IV (07:43)
[2018-02-14 09:50] VITALS: BP 122/71; PULSE 75; RESP 16; TEMP 36.5; O2SAT 96
[2018-02-14] MEDS: Clopidogrel Bisulfate 75 MG Tablet PO (09:59)
[2018-02-14] MEDS: Enoxaparin 40 MG/0.4 ML Syringe SC (09:59)
[2018-02-14] MEDS: Aspirin E.C. 81 MG Tablet PO (09:59)
[2018-02-14] MEDS: Famotidine 20 MG Tablet PO (09:59)
[2018-02-14] MEDS: Thiamine Hydrochloride 100 MG Tablet PO (10:00)
[2018-02-14] MEDS: levETIRAcetam 750 MG Tablet PO (10:01)
--- NOTE | 2018-02-14 10:43 | PN.NEURO_ITS ---
Subjective: He is now awake and alert, no complaints. He says that he feels like he feels normal after having had a seizure but he denies any discomfort or muscle soreness. He says his seizures are always associated with stress. He said he saw the [facility]. Asks about treatment for stress. - Physical Exam General: Alert, Oriented x3, Cooperative, No apparent distress Neurological: Cranial nerves II-XII grossly intact, Deep Tendon Reflexes 2+/4 and Symmetrical, Neuro grossly intact, Motor Exam 5/5 strength throughout, - - During my interview with him on 2 separate occasions he had brief staring off and on one occasion this is associated with tremulousness of his right upper ex tremity both of which resolved however with stimulation. Vital Signs Temp Pulse Resp BP Pulse Ox 36.5 C L 75 16 122/71 H 96 02/14/18 09:50 02/14/18 09:50 02/14/18 09:50 02/14/18 09:50 02/14/18 09:50 Oxygen Delivery Method Room Air Weight: 62.1 kg Body Mass Index (BMI) 20.8 Intake and Output for Last 24 Hours 02/12/18 02/13/18 02/14/18 23:59 23:59 23:59 Intake Total 300 / 300 480 / 480 Output Total 450 / 450 Balance 300 / 300 30 / 30 Laboratory Tests Past 24 Hrs 02/14/18 02/14/18 02/14/18 02:30 05:25 05:25 WBC 7.8 RBC 4.41 L Hgb 14.2 Hct 42.0 MCV 95.2 H MCH 32.2 H MCHC 33.8 RDW 13.1 RDW Differential 44.4 H Plt Count 266 MPV 9.5 Immature Gran % (Auto) 0.300 Neut % (Auto) 62.8 Lymph % (Auto) 24.5 [place] % (Auto) 10.6 H Eos % (Auto) 1.7 Baso % (Auto) 0.1 Absolute Neuts (auto) 4.9 Absolute Lymphs (auto) 1.90 Total Counted Not Reportable Sodium 137 Potassium 4.1 Chloride 101 Carbon Dioxide 28.0 Anion Gap 8 BUN 16 Creatinine 0.78 Estim Creat Clear Calc 85.14 Est GFR (MDRD) Af Amer 130 Est GFR (MDRD) Non-Af 107 BUN/Creatinine Ratio 20.6 H Glucose 121 H Calcium 8.4 L Urine Color Yellow Urine Clarity Clear Urine pH 6.0 Ur Specific [place] 1.020 Urine Protein Negative Urine Glucose (UA) Normal Urine Ketones Negative Urine Occult Blood 50 H Urine Nitrite Negative Urine Bilirubin Negative Urine Urobilinogen Normal Ur Leukocyte Esterase Negative Urine RBC 0-5 SEEN Urine WBC 0 SEEN Ur Squamous Epith Cells 0 SEEN Urine Bacteria 0 SEEN Urine Mucus 0 SEEN MRI reviewed, no acute. 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 I will also increase his Keppra dose he is otherwise stable and can be followed up on an outpatient basis at this point.
[2018-02-14 11:06] VITALS: PULSE 79
--- NOTE | 2018-02-14 11:37 | EEG_ITS ---
- Electroencephalogram Date of service 02/14/18 This is an 18 channel electroencephalogram performed utilizing the International 10-20 electrode placement protocol as well as photic stimulation, hyperventilation EKG reference leads performed on this 62-year-old male with periodic agitation and confusional spells previously diagnosed as seizures. The patient did not have any events during the recording. Background activity is 8- 10 Hz symmetrically in the posterior leads which attenuates with eye-opening. Hyperventilation is performed for 3 minutes with good effort with no lateralizing or epileptiform changes in the post hyperventilatory phase was unremarkable. The patient remained awake throughout the recording. Photic stimulation generates a normal symmetric driving response in the posterior leads. EKG is sinus throughout the recording. Impression: Normal awake electroencephalogram
--- NOTE | 2018-02-14 12:38 | PCM.DC ---
You will use the following diet at home:: Cardiac Your food should be the consistency of: Regular Your liquids should be the consistency of: Regular/Thin Discharge Activity: May Not Drive - until ok'd by neurology Call your doctor if you observe: - - recurrent seiuzres Allergies/Adverse Reactions: Allergies tuberculin, purified protein deriva Allergy (Verified 02/13/18 09:59) Swelling bumble bee stings Allergy (Severe, Uncoded 02/13/18 09:59) Anaphylaxis Medications to take at Discharge aspirin 81 mg tablet,delayed release 81 mg PO QDAY 08/01/17 atorvastatin 40 mg tablet 40 mg PO QHS tab 08/01/17 thiamine HCl (vitamin B1) 100 mg tablet 100 mg PO QDAY 08/01/17 clopidogrel 75 mg tablet 75 mg PO DAILY #90 tab 02/10/18 Doxepin HCl 10 mg PO QHS 02/13/18 levETIRAcetam tablet [Keppra tablet] 750 mg PO BID #60 tablet 02/14/18 The following prescriptions were given: levETIRAcetam tablet [Keppra tablet] 750 mg PO BID #60 tablet Primary Care Physician: [facility] Esther Rodríguez [Primary Care Provider] - Within 2 Weeks Test Results: Test results from this visit will be discussed in further detail at your follow-up appointment, if applicable. Please Follow Up With: Nilesh Olivas MD When: 2-4 weeks Proposed Discharge Date: 02/14/18
--- NOTE | 2018-02-14 12:40 | PCM.DC.SUM ---
Discharge Date and Diagnosis - Problem List Patient Problems: Active and Suspected Problems (Last Reviewed 02/13/18 @ 12:07 by Nilesh Olivas MD) Seizure (Acute) Date of Admission: 02/13/18 Date of Discharge: 02/14/18 - Primary Discharge Diagnosis Active and Suspected Problems (Last Reviewed 02/13/18 @ 12:07 by Nilesh Olivas MD) Seizure (Acute) - Secondary Discharge Diagnosis Chronic Problems (Last Reviewed 02/13/18 @ 12:07 by Nilesh Olivas MD) Hyperlipidemia (Chronic) Atherosclerotic heart disease of [place] coronary artery without angina pectoris (Chronic) 3.0 X 32 mm Synergy LOPEZ to mid LAD; 2.5 x 16 MM Synergy LOPEZ to second diagonal per Dr. Doherty @ [facility] Stented coronary artery (Chronic 10/06/17) 3.0 X 32 mm Synergy LOPEZ to mid LAD; 2.5 x 16 MM Synergy LOPEZ to second diagonal per Dr. 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 Electronically Signed: Rufus Baig DO at 18:29 EST Tel [phone], Service support , [place] Operations: None Procedures: Electroencephalogram Summary of Care Provided: The patient is a 62 year old M Tushar with recurrent seizures. At home, patient was taking total of center 50 mg daily of Keppra. With 1 dose being 500 the other dose being 250. Was having tonic-clonic activities at home. Patient was seen in the emergency room prior to admission and went home AGAINST MEDICAL ADVICE. Patient only returned again with seizures. Patient was started on center 50 mg of Keppra twice daily by neurology. Patient has remained stable. Concern from neurology is some psychological overlay that may be compounding his issues. Patient will follow up with neurology next 2-4 weeks. Patient and family instructed to return if patient does have recurrent seizure-like activities. Him as requested medical power of ip technology transactions attorney paperwork to be filled out so that the patient cannot sign himself out AGAINST MEDICAL ADVICE if he is incompetent. [] Patient Problems: Active and Suspected Problems (Last Reviewed 02/13/18 @ 12:07 by Nilesh Olivas MD) Seizure (Acute) - Physical Exam General: Alert, No apparent distress HEENT: Atraumatic, Normocephalic Oral: Moist Mucosa, No Gingival or Mucosal Lesions/ Ulcerations Psych/Mental Status: Normal Affect, Appropriate Vital Signs Temp Pulse Resp BP Pulse Ox 36.5 C L 79 16 122/71 H 96 02/14/18 09:50 02/14/18 11:06 02/14/18 09:50 02/14/18 09:50 02/14/18 09:50 Oxygen Delivery Method Room Air Weight: 62.1 kg Body Mass Index (BMI) 20.8 Intake and Output for Last 24 Hours 02/12/18 02/13/18 02/14/18 23:59 23:59 23:59 Intake Total 300 / 300 680 / 680 Output Total 450 / 450 Balance 300 / 300 230 / 230 Laboratory Tests Past 24 Hrs 02/14/18 02/14/18 02/14/18 02:30 05:25 05:25 WBC 7.8 RBC 4.41 L Hgb 14.2 Hct 42.0 MCV 95.2 H MCH 32.2 H MCHC 33.8 RDW 13.1 RDW Differential 44.4 H Plt Count 266 MPV 9.5 Immature Gran % (Auto) 0.300 Neut % (Auto) 62.8 Lymph % (Auto) 24.5 [place] % (Auto) 10.6 H Eos % (Auto) 1.7 Baso % (Auto) 0.1 Absolute Neuts (auto) 4.9 Absolute Lymphs (auto) 1.90 Total Counted Not Reportable Sodium 137 Potassium 4.1 Chloride 101 Carbon Dioxide 28.0 Anion Gap 8 BUN 16 Creatinine 0.78 Estim Creat Clear Calc 85.14 Est GFR (MDRD) Af Amer 130 Est GFR (MDRD) Non-Af 107 BUN/Creatinine Ratio 20.6 H Glucose 121 H Calcium 8.4 L Urine Color Yellow Urine Clarity Clear Urine pH 6.0 Ur Specific [place] 1.020 Urine Protein Negative Urine Glucose (UA) Normal Urine Ketones Negative Urine Occult Blood 50 H Urine Nitrite Negative Urine Bilirubin Negative Urine Urobilinogen Normal Ur Leukocyte Esterase Negative Urine RBC 0-5 SEEN Urine WBC 0 SEEN Ur Squamous Epith Cells 0 SEEN Urine Bacteria 0 SEEN Urine Mucus 0 SEEN Discharge Diet: Low fat/ Low Cholesterol Discharge Activity: May Not Drive - until ok'd by neurology Call your doctor if you observe: - - recurrent seiuzres Home Medications: Medications to take at Discharge aspirin 81 mg tablet,delayed release 81 mg PO QDAY 08/01/17 atorvastatin 40 mg tablet 40 mg PO QHS tab 08/01/17 thiamine HCl (vitamin B1) 100 mg tablet 100 mg PO QDAY 08/01/17 clopidogrel 75 mg tablet 75 mg PO DAILY #90 tab 02/10/18 Doxepin HCl 10 mg PO QHS 02/13/18 levETIRAcetam tablet [Keppra tablet] 750 mg PO BID #60 tablet 02/14/18 Following Prescrptions Were Given to Patient: levETIRAcetam tablet [Keppra tablet] 750 mg PO BID #60 tablet Primary Care Physician: Esther Aguialr [Primary Care Provider] - Within 2 Weeks Please Follow Up With: Nilesh Olivas MD When: 2-4 weeks Disposition: Home Minutes spent on discharge:: 32 Patient Condition:: Fair Medical Necessity - Tobacco Use Smoking Status: Current every day smoker Tobacco Use: Cigarettes Meaningful Use Info Meaningful Use Diagnoses (Choose all that apply): None applicable Code Visit OBSV E&M: 27695 Observation care discharge
--- NOTE | 2018-02-14 12:43 | DS.PCM_ITS ---
Discharge Date and Diagnosis - Problem List Patient Problems: Active and Suspected Problems (Last Reviewed 02/13/18 @ 12:07 by Nilesh Olivas MD) Seizure (Acute) Date of Admission: 02/13/18 Date of Discharge: 02/14/18 - Primary Discharge Diagnosis Active and Suspected Problems (Last Reviewed 02/13/18 @ 12:07 by Nilesh Olivas MD) Seizure (Acute) - Secondary Discharge Diagnosis Chronic Problems (Last Reviewed 02/13/18 @ 12:07 by Nilesh Olivas MD) Hyperlipidemia (Chronic) Atherosclerotic heart disease of [place] coronary artery without angina pectoris (Chronic) 3.0 X 32 mm Synergy LOPEZ to mid LAD; 2.5 x 16 MM Synergy LOPEZ to second diagonal per Dr. Doherty @ [facility] Stented coronary artery (Chronic 10/06/17) 3.0 X 32 mm Synergy LOPEZ to mid LAD; 2.5 x 16 MM Synergy LOPEZ to second diagonal per Dr. 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 Electronically Signed: Rufus Baig DO at 18:29 EST Tel [phone], Service support , [place] Operations: None Procedures: Electroencephalogram Summary of Care Provided: The patient is a 62 year old M Tushar with recurrent seizures. At home, patient was taking total of center 50 mg daily of Keppra. With 1 dose being 500 the other dose being 250. Was having tonic-clonic activities at home. Patient was seen in the emergency room prior to admission and went home AGAINST MEDICAL ADVICE. Patient only returned again with seizures. Patient was started on ce nter 50 mg of Keppra twice daily by neurology. Patient has remained stable. Concern from neurology is some psychological overlay that may be compounding his issues. Patient will follow up with neurology next 2-4 weeks. Patient and family instructed to return if patient does have recurrent seizure-like activities. Him as requested medical power of branch library clerk paperwork to be filled out so that the patient cannot sign himself out AGAINST MEDICAL ADVICE if he is incompetent. [] Patient Problems: Active and Suspected Problems (Last Reviewed 02/13/18 @ 12:07 by Nilesh Olivas MD) Seizure (Acute) - Physical Exam General: Alert, No apparent distress HEENT: Atraumatic, Normocephalic Oral: Moist Mucosa, No Gingival or Mucosal Lesions/ Ulcerations Psych/Mental Status: Normal Affect, Appropriate Vital Signs Temp Pulse Resp BP Pulse Ox 36.5 C L 79 16 122/71 H 96 02/14/18 09:50 02/14/18 11:06 02/14/18 09:50 02/14/18 09:50 02/14/18 09:50 Oxygen Delivery Method Room Air Weight: 62.1 kg Body Mass Index (BMI) 20.8 Intake and Output for Last 24 Hours 02/12/18 02/13/18 02/14/18 23:59 23:59 23:59 Intake Total 300 / 300 680 / 680 Output Total 450 / 450 Balance 300 / 300 230 / 230 Laboratory Tests Past 24 Hrs 02/14/18 02/14/18 02/14/18 02:30 05:25 05:25 WBC 7.8 RBC 4.41 L Hgb 14.2 Hct 42.0 MCV 95.2 H MCH 32.2 H MCHC 33.8 RDW 13.1 RDW Differential 44.4 H Plt Count 266 MPV 9.5 Immature Gran % (Auto) 0.300 Neut % (Auto) 62.8 Lymph % (Auto) 24.5 [place] % (Auto) 10.6 H Eos % (Auto) 1.7 Baso % (Auto) 0.1 Absolute Neuts (auto) 4.9 Absolute Lymphs (auto) 1.90 Total Counted Not Reportable Sodium 137 Potassium 4.1 Chloride 101 Carbon Dioxide 28.0 Anion Gap 8 BUN 16 Creatinine 0.78 Estim Creat Clear Calc 85.14 Est GFR (MDRD) Af Amer 130 Est GFR (MDRD) Non-Af 107 BUN/Creatinine Ratio 20.6 H Glucose 121 H Calcium 8.4 L Urine Color Yellow Urine Clarity Clear Urine pH 6.0 Ur Specific [place] 1.020 Urine Protein Negative Urine Glucose (UA) Normal Urine Ketones Negative Urine Occult Blood 50 H Urine Nitrite Negative Urine Bilirubin Negative Urine Urobilinogen Normal Ur Leukocyte Esterase Negative Urine RBC 0-5 SEEN Urine WBC 0 SEEN Ur Squamous Epith Cells 0 SEEN Urine Bacteria 0 SEEN Urine Mucus 0 SEEN Discharge Diet: Low fat/ Low Cholesterol Discharge Activity: May Not Drive - until ok'd by neurology Call your doctor if you observe: - - recurrent seiuzres Home Medications: Medications to take at Discharge aspirin 81 mg tablet,delayed release 81 mg PO QDAY 08/01/17 atorvastatin 40 mg tablet 40 mg PO QHS tab 08/01/17 thiamine HCl (vitamin B1) 100 mg tablet 100 mg PO QDAY 08/01/17 clopidogrel 75 mg tablet 75 mg PO DAILY #90 tab 02/10/18 Doxepin HCl 10 mg PO QHS 02/13/18 levETIRAcetam tablet [Keppra tablet] 750 mg PO BID #60 tablet 02/14/18 Following Prescrptions Were Given to Patient: levETIRAcetam tablet [Keppra tablet] 750 mg PO BID #60 tablet Primary Care Physician: Esther Aguilar [Primary Care Provider] - Within 2 Weeks Please Follow Up With: Nilesh Olivas MD When: 2-4 weeks Disposition: Home Minutes spent on discharge:: 32 Patient Condition:: Fair Medical Necessity - Tobacco Use Smoking Status: Current every day smoker Tobacco Use: Cigarettes Meaningful Use Info Meaningful Use Diagnoses (Choose all that apply): None applicable Code Visit OBSV E&M: 25026 Observation care discharge
[2018-02-14 13:51] VITALS: BP 113/62; PULSE 77; RESP 16; TEMP 36.7; O2SAT 97
--- NOTE | 2018-02-14 14:13 | CASEMGMT ---
Social Work Received a referral from Dr. George that pt would like to complete advance directives. SW met with pt, dgt, step son, son in law and grandson in room. SW reviewed both HCPOA and LW. Pt stating he would like to complete both documents today. SW assisted pt in completing documents. Copy placed on pt chart. Copy given to pt dgt and original given to Pt with instruction to give a copy to PCP. SERGIO Costa
== END 2018-02-14 14:22 | disposition home or self-care (01) | DRG 53 ==
LOC: ED 10:44 → PCU 10:55
PROVIDERS: Admitting Provider Student in an Organized Health Care Education/Training Program; Emergency Provider Emergency Medicine
DX: G40.909 Epilepsy, unspecified, not intractable, without status epilepticus (principal); E78.5 Hyperlipidemia, unspecified; I25.10 Atherosclerotic heart disease of native coronary artery without angina pectoris; Z95.5 Presence of coronary angioplasty implant and graft; F17.210 Nicotine dependence, cigarettes, uncomplicated; Z86.73 Personal history of transient ischemic attack (TIA), and cerebral infarction without residual deficits; Z79.899 Other long term (current) drug therapy; Z79.82 Long term (current) use of aspirin; R94.31 Abnormal electrocardiogram [ECG] [EKG]; Z79.02 Long term (current) use of antithrombotics/antiplatelets
CPT/HCPCS: 36415; 70450; 70496; 70498; 70553; 71045; 71046; 80048; 81001; 83735; 84443; 84484; 85025; 87040; 93005; 95819; 96365; 96366; 96367; 96375; 99218; 99285; 99406; A9585; J7030; A4216; G0378; J2405

== ENCOUNTER 2018-03-09 06:57 | Day surgery (SDC) | payer MEDICAID, SELFPAY ==
[2017-10-06 13:03] VITALS: BMI 22.4
[2018-03-03 14:25] VITALS: BMI 21.6
[2018-03-08 08:35] VITALS: BMI 21.6
--- NOTE | 2018-03-09 09:27 | CL.D_ITS ---
Patient Name: RADHA BRENNAN Study Date: 03/09/2018 Performing: Fabian Doherty MD Ht: 68.11 inches 173 cm : 1955 Wt: 141.1 lbs 64 kg Age: 62 Gender: male BSA: 1.76 PROCEDURE(S) PERFORMED PB32-MMJ/COR/LV CLINICAL PROFILE AND INDICATIONS Indications: New Onset Angina <= 2 months, Stable Known CAD Heart Failure: None Stress/Imaging Stress Echocardiogram: Yes Result: NegativeStress Echocardiogram: Negative Angina Classification Anginal Classification w/in 2 Weeks: CCS IV CAD Presentations: Symptom unlikely to be ischemic. Comorbidities/Risk Factors: Current/Recent Smoker (< 1year) Hypertension Dyslipidemia Prior PCI Chronic Lung Disease CONCLUSIONS Widely patent LAD and DIAG#2 stents. Non obstructive coronary arteries Normal LV size, wall motion,and systolic function RECOMMENDATIONS Risk factor modification Management as per referring Money Room Teller Plavix for at least 12 months Manual sheath removal DESCRIPTION OF PROCEDURE The patient arrived to the procedure lab. The risks and benefits of the procedure as well as a full d escription of our services here and current unavailability of surgical backup were fully explained to the patient and/or their significant other prior to the catheterization. The Timeout was completed, verifying the correct patient and procedure. The patient's procedural site was prepped and draped in the usual fashion. Local anesthetic was given subcutaneously to right groin region with Lidocaine 2%. Using a modified Seldinger technique, arterial access was obtained via the right femoral artery, a 4 Fr sheath was inserted Left Coronary Artery selective angiography was performed in multiple views us ing a 4 Fr. JL5 catheter. Right Coronary Artery selective angiography was then performed in multiple views using a 4 Fr. 3DRC catheter. Left Ventriculography was performed in AGUILAR projection using a 4 Fr . Pigtail catheter. LV to AO pullback pressures were then recorded.The arterial sheath was pulled and manual compression applied until hemostasis is achieved. CORONARY ANGIOGRAPHY DOMINANCE: Right Dominant LEFT HEART ASSESSMENT Left Ventricular Ejection Fraction: by LV Gram 65 % Normal LV wall motion Normal Left Ventricular systolic function Normal Left Ventricular End Diastolic Pressure LVEDP: 4 mmHg LEFT MAIN: Angiographically normal LEFT ANTERIOR DECENDING ARTERY: MID LAD: Previously placed stent is patent DIAGONAL 2: Proximal - Previously placed stent is patent RIGHT CORONARY ARTERY: MID RCA: 30 % Stenosis COMPLICATIONS No Complications PROCEDURE MEDICATIONS Versed 1 mg IV Oxygen: 2 L/min via nasal cannula SUMMARY OF HEMODYNAMIC DATA Time AIR REST ECG 07:25:26 AO 120/65 (86) SA 09:15:42 LV 104/-2, 11 09:21:08 LV 106/-17, 4 09:21:14 LVp 110/-17, 5 09:21:21 AOp 109/59 (78) 09:21:26 Signed By Fabian Doherty MD On 03/09/2018 09:26:38 Fabian Doherty MD
== END 2018-03-09 13:40 | disposition home or self-care (01) ==
LOC: CLSP 06:57
PROVIDERS: Referring Provider Internal Medicine Cardiovascular Disease; Visit Provider Internal Medicine Cardiovascular Disease
DX: R07.9 Chest pain, unspecified (principal); I25.10 Atherosclerotic heart disease of native coronary artery without angina pectoris; Z95.5 Presence of coronary angioplasty implant and graft; E78.2 Mixed hyperlipidemia; F17.210 Nicotine dependence, cigarettes, uncomplicated; I10 Essential (primary) hypertension
CPT/HCPCS: 93458; 99152; J7040; C1769; C1894; Q9967

== ENCOUNTER → 2018-08-22 10:48 | Outpatient (REF) | payer MEDICAID, SELFPAY ==
[2017-10-06 13:03] VITALS: BMI 22.4
[2018-08-21 13:33] VITALS: BMI 21.4
== END ==
LOC: CVS 10:48
PROVIDERS: Referring Provider Internal Medicine Cardiovascular Disease; Visit Provider Internal Medicine Cardiovascular Disease
DX: R55 Syncope and collapse (principal)
CPT/HCPCS: 93270

== ENCOUNTER 2018-09-19 10:14 | Observation (INO) | payer MEDICAID, SELFPAY ==
[2017-10-06 13:03] VITALS: BMI 22.4
[2018-08-21 13:33] VITALS: BMI 21.4
[2018-09-19] VITALS (13 sets, daily range): BP systolic 110–143; BP diastolic 62–97; PULSE 66–81; RESP 16–29; TEMP 36.6–37.4; O2SAT 94–99; BMI 19.6; BMI 20.8
--- NOTE | 2018-09-19 10:28 | EKG12_ITS ---
Test Reason : SYNCOPE Blood Pressure : / mmHG Vent. Rate : 080 BPM Atrial Rate : 080 BPM P-R Int : 146 ms QRS Dur : 102 ms QT Int : 384 ms P-R-T Axes : 076 023 074 degrees QTc Int : 442 ms Normal sinus rhythm Right atrial enlargement Septal infarct , age undetermined Abnormal ECG Confirmed by ANASTACIO COUCH ([id number]), food editor JIM LAGUERRE ([id number]) on 09/25/2018 10:27:58 AM Referred By: Gino Valdivia Confirmed By:ANASTACIO COUCH
--- NOTE | 2018-09-19 10:28 | CT_ITS ---
STUDY: CT BRAIN WITHOUT CONTRAST REASON FOR EXAM: Male, 63 years old. Syncope for 2 days RADIATION DOSAGE (If Supplied By Facility): CTDIvol = ( 44.99 ) mGy, DLP = ( 812.98 ) mGycm TECHNIQUE: Transaxial CT imaging of the brain was performed without administration of intravenous contrast material. Individualized dose optimization techniques were used for this CT. COMPARISON: 02/12/2018 FINDINGS: Normal soft tissue structures. Normal calvarium. Normal size ventricles and extra-axial spaces for the patient's age. There are areas of decreased attenuation within the white matter tracts of the supratentorial brain, consistent with microvascular disease changes. Normal age-related changes of the basal ganglia. Normal brainstem. Normal cerebellum. There is no intracranial hemorrhage. There are no findings of an acute ischemic infarction. Stable right temporal lobe encephalomalacia. Cyst in the right maxillary sinus. CT/Brain/Head without Contrast IMPRESSION: No CT evidence of acute infarct or hemorrhage. If there is clinical concern for hyperacute ischemia that is not evident by CT, MRI should be considered if possible. Electronically Signed: Jorge Petty MD at 12:09 EDT Tel , Service support ,
--- NOTE | 2018-09-19 10:28 | RAD_ITS ---
STUDY: X-RAY CHEST REASON FOR EXAM: Male, 63 years old. Syncope. TECHNIQUE: Single AP portable view of the chest. COMPARISON: Comparison is made with prior study dated February 13, 2018. FINDINGS: EKG electrodes are seen. Hyperinflation. Scattered calcified granulomas. There is no demonstrated pleural abnormality. Normal size heart. Normal mediastinum and mariluz. Normal visualized pulmonary arteries. Normal visualized aortic arch and descending thoracic aorta. Normal visualized thoracic spine. Normal visualized ribs, clavicles, and shoulders. There is no demonstrated abnormality of the visualized soft tissue structures of the upper abdomen. RAD/Chest 1 View (Portable) IMPRESSION: Hyperinflation. No acute abnormality is seen. Electronically Signed: Chris Jackson, at 11:07 EDT , Service support ,
[2018-09-19 10:39] LABS: Absolute Lymphocyte Count 2.71 X10^3/ul (0.83-4.51); Absolute Neutrophil Count 6.7 X10^3/uL (2.0-7.7); Basophil# 0.03 X10^3/uL; Basophil% 0.3 % (0-1); Eosinophil# 0.39 X10^3/uL; Eosinophils% 3.6 % (0-5); Hematocrit 45.4 % (40-54); Hemoglobin 15.9 g/dl (13.0-16.5); Lymphocyte # 2.71 X10^3/ul (4.0); Lymphocyte % 24.7 % (19-41); Mean Corpuscular Hgb 31.9 pg (27.0-32.0); Mean Platelet Vol. 9.6 fl (6.2-12.0); Monocyte# 1.09 X10^3/uL; Neutrophil # 6.69 X10^3/uL (2.7-7.7); Platelet Count 299 K/mm3 (150-450); RBC Distribution Width CV 13.2 % (11.6-14.6); RBC Distribution Width SD 43.6 fl (35.1-43.9); Red Blood Count 4.99 M/mm3 (4.6-6.2)
[2018-09-19 10:41] LABS: POSITIVE COUNT NO; POSITIVE DIFFERENTIAL NO; POSITIVE MORPHOLOGY NO
[2018-09-19] MEDS: 0.9% Normal Saline 1,000 ML 150 ML IV (10:44)
[2018-09-19] MEDS: LORazepam 2 MG/ML Syringe 1 MG IV (10:44)
[2018-09-19 10:55] LABS: Anion Gap 8 (5-15); BUN 11 mg/dL (7-18); BUN/Creat Ratio 10.4 RATIO (10-20); Calcium,Total 8.6 mg/dL (8.5-10.1); Chloride 102 mmol/L (98-107); Creatinine, Serum 1.06 mg/dL (0.70-1.30); EST Glomerular Filtration Rate 75 mL/min (>60); Est Glom Filt Rate - Afr Amer 90 mL/min (>60); Estimated Creatinine Clearance 61.88 ml/min; Glucose 128 mg/dL (74-106); Potassium 3.6 mmol/L (3.5-5.1); Sodium Level 138 mmol/L (136-145)
--- NOTE | 2018-09-19 10:59 | ED.DCSUM_ITS ---
- ER Visit Summary Date of Service: 09/19/18 Chief Complaint: [Syncope] History of Present Illness: The patient is a 63 M [presents the ER with complaint of syncopal episodes that have occurred over the last 2 to 3 days. Patient states that he gets lightheaded and everything goes black and then he passes out. Patient currently wearing a 30-day event monitor that was placed by Dr. Doherty's office. Patient states that at times has been having chest discomfort and feels like his heart is racing. Patient does have a history of seizure disorder but states that he stopped taking his medication because it was making him feel poorly. Patient cannot tell me what medication he had been on. Patient does not know the name of his neurologist. Patient states that he has an appointment coming up with his neurologist. Patient has history of coronary artery disease, high cholesterol, seizure disorder, and syncope.] Physical Examination: [HEENT-PERRLA, EOMI. Cranial nerves II through XII grossly intact. TMs clear. Mucous membranes moist. No adenopathy. Cardiovascular-regular rate and rhythm without murmur or ectopy Lungs-clear to auscultation, chest wall stable without crepitus or subcu emphysema Abdomen-normoactive bowel sounds, soft, nontender, no rebound or rigidity, no peritoneal signs. Neuro [id number]-[id number] and heel weber testing within normal limits, negative Romberg, negative . Patient does have a tremor noted of his right upper extremity as well as his right lower extremity. At times the right upper extremity stops shaking when he is distracted. Extremities-intact ?4, normal range of motion, normal pulses, atraumatic] Test Results: [EKG obtained on arrival shows sinus rhythm with a ventricular rate of 80 bpm with old septal infarct noted. CBC with differential was unremarkable. Chemistries unremarkable. Troponin is less than 0.015. Alcohol was negative. CT scan of the brain without contrast showed nothing acute. Chest x-ray showed some hyperinflation.] Emergency Department Course and Treatment: [Patient received normal saline. Given Ativan 1 mg IV for a slight tremor noted to the right arm and right leg. When I went in to reevaluate the patient he was resting comfortably and I did not appreciate any shaking of the arm or leg. Once he awoke and started conversing with me the right arm started shaking again but not the leg.] Treatment Plan: [Admit for further work-up and evaluation of his syncopal episodes] Disposition: [Admit] Impression: [Syncope-etiology uncertain] This note was generated with [employer] dictation software. It may contain incorrect words, spelling, and punctuation that were not noted in review of the chart prior to signing ED Disposition - Plan for ED Patient: Referrals: Barbara Kimball, [facility] [Primary Care Provider] -
--- NOTE | 2018-09-19 12:30 | HP.PCM_ITS ---
Problem List (1) Syncope and collapse Status: Acute (2) Seizure Status: Acute (3) Hyperlipidemia Status: Chronic Qualifiers: Hyperlipidemia type: mixed hyperlipidemia Qualified Code(s): E78.2 - Mixed hyperlipidemia (4) Atherosclerotic heart disease of [place] coronary artery without angina pectoris Status: Chronic Qualifiers: [place] vs. transplanted heart: [place] heart Qualified Code(s): I25.10 - Atherosclerotic heart disease of [place] coronary artery without angina pectoris Comment: 3.0 X 32 mm Synergy LOPEZ to mid LAD; 2.5 x 16 MM Synergy LOPEZ to second diagonal per Dr. Doherty @ [facility] (5) Stented coronary artery Status: Chronic Comment: 3.0 X 32 mm Synergy LOPEZ to mid LAD; 2.5 x 16 MM Synergy LOPEZ to second diagonal per Dr. Doherty @ [facility] (6) Atrial septal aneurysm Status: Chronic (7) Abnormal electrocardiogram Status: Chronic (8) Nicotine dependence Status: Chronic Qualifiers: Nicotine product type: cigarettes Substance use status: uncomplicated Qualified Code(s): F17.210 - Nicotine dependence, cigarettes, uncomplicated History of Present Illness Date of Admission: 09/19/18 Chief Complaint: Recurrent syncope and fall The patient is a 63 year old M with history of coronary artery disease status post stents was brought into ER for recurrent syncope and fall. Patient had sudden onset of syncope with dizziness and fall in his yard for 2 consecutive days last 2 days. Patient denies any chest pain or missed heartbeat but he does not remember well as it happens suddenly and he found himself laying down when he wakes up. To ER physician, he said sometimes he feel racing heart to me he denies any palpitation. Patient also complained of twitching of right leg and right arm. He has tremor on right hand. Prior to that, he was admitted in February 2018 for recurrent seizures. Patient was started on Keppra but he self discontinued about 3 weeks ago because of confusion, disorientation, disequilibrium and he cannot do his work right. He had EEG in 02/2018 which reported as normal awake EEG. [] Past Medical History Past Medical History (Chronic Problems): Chronic Problems (Last Updated 08/21/18 @ 13:59 by Kaelyn Paula) Hyperlipidemia (Chronic) Atherosclerotic heart disease of [place] coronary artery without angina pectoris (Chronic) 3.0 X 32 mm Synergy LOPEZ to mid LAD; 2.5 x 16 MM Synergy LOPEZ to second diagonal per Dr. Doherty @ [facility] Stented coronary artery (Chronic 10/06/17) 3.0 X 32 mm Synergy LOPEZ to mid LAD; 2.5 x 16 MM Synergy LOPEZ to second diagonal per Dr. Doherty @ [facility] Atrial septal aneurysm (Chronic) Abnormal electrocardiogram (Chronic) Nicotine dependence (Chronic) Medical History: Medical History (Last Updated 08/21/18 @ 13:59 by Kaelyn Paula) Syncope and collapse (Acute) R55 Seizure (Acute) R56.9 Hyperlipidemia (Chronic) E78.5 Atherosclerotic heart disease of [place] coronary artery without angina pectoris (Chronic) I25.10 3.0 X 32 mm Synergy LOPEZ to mid LAD; 2.5 x 16 MM Synergy LOPEZ to second diagonal per Dr. Doherty @ [facility] Atrial septal aneurysm (Chronic) I25.3 Abnormal electrocardiogram (Chronic) R94.31 Nicotine dependence (Chronic) F17.200 CVA (cerebral vascular accident) I63.9 MCA Infarct Chronic back pain M54.9, G89.29 Seizure R56.9 Allergies tuberculin, purified protein deriva Allergy (Verified 09/19/18 10:17) Swelling bumble bee stings Allergy (Severe, Uncoded 09/19/18 10:17) Anaphylaxis Home Medications: Ambulatory Orders Medication Instructions Recorded aspirin 81 mg tablet,delayed 81 mg PO QDAY 08/01/17 release nitroglycerin 0.4 mg sublingual 0.4 mg SUBLINGUAL Q5-15M PRN #25 03/03/18 tablet tab atorvastatin 40 mg tablet 40 mg PO QHS #90 tab 08/21/18 Clopidogrel Bisulfate [Clopidogrel] 75 mg PO DAILY 09/19/18 Surgical History: Surgical History (Last Reviewed 08/21/18 @ 13:34 by Kaelyn Paula) Stented coronary artery (Chronic) Onset Date: 10/06/17 Z95.5 3.0 X 32 mm Synergy LOPEZ to mid LAD; 2.5 x 16 MM Synergy LOPEZ to second diagonal per Dr. Doherty @ [facility] History of lumbar puncture Onset Date: ~04/2017 Z98.890 finger surgery lymph node resection Surgical History: no surgical history Psychiatric History: No pertinent psych hx Smoking Status: Current every day smoker - *Family History Maternal Family History: Family History (Last Reviewed 08/21/18 @ 13:34 by Kaelyn Paula) Mother Myocardial infarction Brother Myocardial infarction History Items: - - mother with different types of cancer Paternal Family History: Family History (Last Reviewed 08/21/18 @ 13:34 by Kaelyn Paula) Mother Myocardial infarction Brother Myocardial infarction History Items: - - Lung cancer Review of Systems Constitutional: Reports: Weakness, - - Lost about 30 pounds in the last 2 to 3 years HEENT: Denies: Head Aches, Sinus Congestion, Sinus Drainage Cardiovascular: Reports: Light Headedness, Syncope. Denies: Chest Pain, Palpitations Gastrointestinal: Denies: Abdominal Pain, Nausea, Vomiting Genitourinary: Denies: Dysuria Musculoskeletal: Denies: Joint Pain, Joint Tenderness Skin: Denies: Rash, Wounds Neurological: Reports: Balance problems, Confusion. Denies: Focal weakness, Numbness, Tingling Psychiatric: Denies: Anxiety, Depression, Homicidal Ideations, Suicidal Ideations Hematologic/ Lymphatic: Denies: Easy Bruising, Easy Bleeding VTE Information - Inpt Only VTE Present on Admission: No VTE Mechan Device Prophylaxis: None VTE Pharm Prophylaxis ordered?: Yes - Physical Exam General: Alert, Oriented x3, Cooperative, - - Loss of subclavicular fat and muscles. HEENT: Atraumatic, PERRLA, EOMI, Normocephalic Neck: Supple, No JVD, Negative Carotid Bruits Lungs: Clear to auscultation, Normal air movement, No rhonchi, No wheeze Cardiovascular: Regular rate, Regular Rhythm, Normal S1, Normal S2, No murmurs Abdomen: Bowel Sounds Present, Soft, Non Tender, Non-Distended Extremities: No edema, Capillary Refill Less than 3 Seconds Skin: No rashes, No breakdown Musculoskeletal: No Tenderness to Palpation of Joints or Extremities, Muscle Wasting Lymphatic: No Cervical, Supraclavicular, or Inguinal Adenopathy Neurological: Cranial nerves II-XII grossly intact, Deep Tendon Reflexes 2+/4 and Symmetrical, Neuro grossly intact, Motor Exam 5/5 strength throughout Psych/Mental Status: Normal Affect, Appropriate Vital Signs Temp Pulse Resp BP Pulse Ox 98.1 F 75 18 134/92 H 94 09/19/18 10:14 09/19/18 12:21 09/19/18 12:21 09/19/18 12:21 09/19/18 12:21 Oxygen Delivery Method Room Air Weight: 137 lb Body Mass Index (BMI) 19.6 Laboratory Tests Past 24 Hrs 09/19/18 09/19/18 09/19/18 10:30 10:30 10:30 WBC 11.0 RBC 4.99 Hgb 15.9 Hct 45.4 MCV 91.0 MCH 31.9 MCHC 35.0 RDW 13.2 RDW Differential 43.6 Plt Count 299 MPV 9.6 Immature Gran % (Auto) 0.400 Neut % (Auto) 61.0 Lymph % (Auto) 24.7 Warren % (Auto) 10.0 Eos % (Auto) 3.6 Baso % (Auto) 0.3 Absolute Neuts (auto) 6.7 Absolute Lymphs (auto) 2.71 Total Counted Not Reportable Sodium 138 Potassium 3.6 Chloride 102 Carbon Dioxide 28.0 Anion Gap 8 BUN 11 Creatinine 1.06 Estim Creat Clear Calc 61.88 Est GFR (MDRD) Af Amer 90 Est GFR (MDRD) Non-Af 75 BUN/Creatinine Ratio 10.4 Glucose 128 H Calcium 8.6 Troponin I < 0.015 Ethyl Alcohol 4.0 Assessment/Plan All Active Problems (Last Updated 08/21/18 @ 13:59 by Kaelyn Paula) Syncope and collapse (Acute) Seizure (Acute) The patient is a 63 year old M with history of coronary artery disease status post stents was brought into ER for recurrent syncope and fall. Patient had sudden onset of syncope with dizziness and fall in his yard for 2 consecutive days last 2 days. Patient denies any chest pain or missed heartbeat but he does not remember well as it happens suddenly and he found himself laying down when he wakes up. To ER physician, he said sometimes he feel racing heart to me he denies any palpitation. Patient also complained of twitching of right leg and right arm. He has tremor on right hand. Prior to that, he was admitted in February 2018 for recurrent seizures. Patient was started on Keppra but he self discontinued about 3 weeks ago because of confusion, disorientation, disequilibrium and he cannot do his work right. He had EEG in 02/2018 which reported as normal awake EEG. 1. Sudden syncope, possible differential orthostatic/neurocardiogenic/arrhythmia: Patient is wearing event monitor. Admitted to PCU on telemetry. Direct Care Worker is being consulted to rule out arrhythmia or genic syncope. Cycle cardiac enzymes. 2D echo ordered. 2. Atypical seizure, exact type unclear: Patient is noncompliant with Keppra. Consult neurologist for possible change to other antiepileptic drug. Ativan as needed for breakthrough seizure. 3. Coronary artery disease status post 2 stents in LAD and diagonal 2: Previous cardiac cath in March 2018 reviewed and shows patent stent. Stress echo in January 2018 reported as EF 55% with appropriate heart rate and blood pressure response to dobutamine. 4. Chronic active cigarette smoker/nicotine dependence: Patient smokes about 2 packs/day. On nicotine patch. Advised quitting smoking. 5. Other comorbidities include dyslipidemia, atrial septal aneurysm: Stable. FLP tomorrow morning. DVT prophylaxis: On Lovenox 40 mg subcu daily. Code Visit Inpatient E&M: [id number] Init Hosp L3
--- NOTE | 2018-09-19 13:46 | CASEMGMT ---
Patient has a Healthcare POA and Healthcare LW on file at [facility]. Helen LAIRD [employer]
--- NOTE | 2018-09-19 14:01 | ECHOD_ITS ---
Reason For Study: Recurrent syncope Procedure This was a 2D Doppler, Color Flow transthoracic echocardiogram. The exam was of adequate technical quality. Exam performed portable in patient room. Left Ventricle Normal LV size. Segmental dysfunction with preserved ejection fraction (see wall motion). The estimated ejection fraction is 55 %. No evidence for diastolic dysfunction. Mid-Anterior : Hypokinetic. Mid-Lateral : Hypokinetic. Mid-anteroseptal : Hypokinetic. Anterior Fisher : Hypokinetic. Lateral Fisher : Hypokinetic. Right Ventricle Normal RV size. Normal systolic function. Atria Normal left atrium. Normal right atrium. Hypermobile atrial septum. No doppler evidence for ASD. Bubble contrast study negative for right to left interatrial shunt. Mitral Valve There is mild mitral annular calcification. Anterior leaflet diffuse mitral valve thickening. Trivial mitral valve insufficiency. Tricuspid Valve Normal tricuspid valve. Mild tricuspid valve insufficiency. Aortic Valve Trisinus/trileaflet aortic valve. Normal aortic valve. Pulmonic Valve The pulmonic valve is not well visualized. Great Vessels Normal sized aortic root. Pericardium/Pleural No pericardial effusion. Medication Performed a rapid injection of agitated mix of 9 cc saline and 1cc air to assess for atrial septal defect. MMode/2D Measurements & Calculations LVIDd: 4.8 cm IVSd: 1.1 cm Ao root diam: 3.6 cm LVIDs: 3.3 cm LVPWd: 1.1 cm RVDd: 3.2 cm FS: 32.2 % LAV(MOD-bp): 41.8 ml LA A4 area: 12.2 cm2 LA dimension(2D): 3.2 cm LAV(MOD-bp) Indexed: 24.0 ml/m2 LAV(MOD-sp2): 69.9 ml LAV(MOD-sp4): 24.0 ml RA A4 area: 14.9 cm2 Doppler Measurements & Calculations MV E max manjinder: 47.6 cm/sec Lat Peak E' Manjinder: 9.8 cm/sec Med Peak E' Manjinder: 6.7 cm/sec MV A max manjinder: 65.1 cm/sec E/E' lat: 4.9 E/E' med: 7.1 MV E/A: 0.73 Ao V2 max: 131.5 cm/sec LV V1 max: 103.1 cm/sec PA V2 max: 67.8 cm/sec Ao max P.9 mmHg LV V1 max P.3 mmHg Interpretation Summary Segmental dysfunction with preserved ejection fraction (see wall motion). The estimated ejection fraction is 55 %. There is mild mitral annular calcification. Anterior leaflet diffuse mitral valve thickening. Trivial mitral valve insufficiency. Mild tricuspid valve insufficiency. No evidence for diastolic dysfunction. Ordering Physician: Gino Valdivia Referring Physician: Gino Valdivia Performed By: Lety Mccall RDCS
[2018-09-19] MEDS: Lactated Ringers 1,000 ML 100 ML IV (15:16)
--- NOTE | 2018-09-19 15:38 | CON.PCM_ITS ---
Problem List (1) Syncope and collapse Status: Acute (2) Atherosclerotic heart disease of [place] coronary artery without angina pectoris Status: Chronic Qualifiers: [place] vs. transplanted heart: [place] heart Qualified Code(s): I25.10 - Atherosclerotic heart disease of [place] coronary artery without angina pectoris Comment: 3.0 X 32 mm Synergy LOPEZ to mid LAD; 2.5 x 16 MM Synergy LOPEZ to second diagonal per Dr. Doherty @ [facility] (3) Stented coronary artery Status: Chronic Comment: 3.0 X 32 mm Synergy LOPEZ to mid LAD; 2.5 x 16 MM Synergy LOPEZ to second diagonal per Dr. Doherty @ [facility] (4) Hyperlipidemia Status: Chronic Qualifiers: Hyperlipidemia type: mixed hyperlipidemia Qualified Code(s): E78.2 - Mixed hyperlipidemia (5) Seizure Status: Chronic Reason for Consult Date of Consultation: 09/19/18 History of Present Illness: The patient is a 63 year old white male with a past medical history of underlying CAD, PCI, left ventricular systolic dysfunction, syncope thought secondary to seizure disorder and/or alcohol withdrawal related seizure, superimposed upon hyperlipidemia, is referred for evaluation of recurrent syncope. The patient states that recently he has had recurrent syncopal events. He states he will feel transiently dizzy and then feels like rubber and then apparently loses consciousness. He states this is happened at least 2 times over the last 2 days. He was brought to the emergency department for further evaluation. He denies any related chest discomfort or difficulty breathing. He does not recall having any nausea, emesis, or diaphoresis. There is been no report of loss of bladder or bowel function. He states there has been witnesses that believe he has been somewhat tremulous with his activity with concern of possible seizure related events. He has been placed in the PCU for further evaluation. His initial troponin I level was negative. His ECG demonstrated sinus rhythm with a possible right atrial enlargement and a possible septal IL of indeterminate age. There did not appear to be any acute changes. He has been undergoing evaluation for recurrent syncopal events with an outpatient 30-day ambulatory event monitor. Based upon the preliminary reports thus far on 2 separate recordings dated on 08/22/2018 and 09/02/2018 the patient had sinus rhythm and sinus tachycardia respectively. The patient states that he does not recall ever triggering his device to nilay any type of episode. There apparently has been no reports of any other cardiac dysrhythmias or conduction system disturbances recorded thus far. The patient admits that he has not been taking his medications as previously prescribed. He states he believes his medications make him feel like a zombi e. Thus he discontinued his medications. This is been previously pointed out by the patient to his physicians. Past Medical History Allergies/Adverse Reactions: Allergies tuberculin, purified protein deriva Allergy (Verified 09/19/18 10:17) Swelling bumble bee stings Allergy (Severe, Uncoded 09/19/18 10:17) Anaphylaxis Home Medications: Ambulatory Orders Medication Instructions Recorded aspirin 81 mg tablet,delayed 81 mg PO QDAY 08/01/17 release nitroglycerin 0.4 mg sublingual 0.4 mg SUBLINGUAL Q5-15M PRN #25 03/03/18 tablet tab atorvastatin 40 mg tablet 40 mg PO QHS #90 tab 08/21/18 Clopidogrel Bisulfate [Clopidogrel] 75 mg PO DAILY 09/19/18 Past Medical History (Chronic Problems): Chronic Problems (Last Updated 08/21/18 @ 13:59 by Kaelyn Paula) Seizure (Chronic) Hyperlipidemia (Chronic) Atherosclerotic heart disease of [place] coronary artery without angina pectoris (Chronic) 3.0 X 32 mm Synergy LOPEZ to mid LAD; 2.5 x 16 MM Synergy LOPEZ to second diagonal per Dr. Doherty @ [facility] Stented coronary artery (Chronic 10/06/17) 3.0 X 32 mm Synergy LOPEZ to mid LAD; 2.5 x 16 MM Synergy LOPEZ to second diagonal per Dr. Doherty @ [facility] Atrial septal aneurysm (Chronic) Abnormal electrocardiogram (Chronic) Nicotine dependence (Chronic) Surgical History: no surgical history Psychiatric History: No pertinent psych hx - *Family History Maternal Family History: Family History (Last Reviewed 08/21/18 @ 13:34 by Kaelyn Paula) Mother Myocardial infarction Brother Myocardial infarction History Items: - - mother with different types of cancer Paternal Family History: Family History (Last Reviewed 08/21/18 @ 13:34 by Kaelyn Paula) Mother Myocardial infarction Brother Myocardial infarction History Items: - - Lung cancer Smoking Status: Current every day smoker Review of Systems - Review of Systems General: Denies: Fever, Night Sweats, Fatigue Cardiovascular: Reports: Near Syncope, Syncope. Denies: Chest Discomfort, Shortness of Breath, Orthopnea, PND, Peripheral Edema, Palpitations, Lightheadedness, Dizziness Respiratory: Denies: Cough, Sputum Production, Hemoptysis Gastrointestinal: Denies: Hematemesis, Hematochezia, Melena Genitourinary: Denies: Dysuria, Hematuria Skin: Denies: Rash Neurological: Reports: Tremors Subjectve: This is a 63-year-old white male who appears to be resting comfortably in bed at this time in no acute distress. Objective: Vital Signs Temp Pulse Resp BP Pulse Ox 97.9 F 67 17 130/68 H 99 09/19/18 13:25 09/19/18 13:42 09/19/18 13:25 09/19/18 13:25 09/19/18 13:25 Oxygen Delivery Method Room Air Weight: 137 lb 2.04 oz Body Mass Index (BMI) 20.8 General: Awake, Alert, Oriented x 3, Cooperative, No Acute Distress HEENT: Atraumatic, Normocephalic, PERRL, EOMI, Sclera Non Icteric Oral: Moist Mucosa Neck: Supple, Good ROM, No JVD Lungs: Clear to auscultation Cardiovascular: Regular Rhythm, Normal S1, Normal S2 Vascular: No Carotid Bruits Abdomen: Bowel Sounds Present, Soft, Non Tender Extremities: No Cyanosis, No Clubbing, No edema Psych/Mental Status: Appropriate 09/19/18 10:30: WBC 11.0, RBC 4.99, Hgb 15.9, Hct 45.4, MCV 91.0, MCH 31.9, MCHC 35.0, RDW 13.2, RDW Differential 43.6, Plt Count 299, MPV 9.6, Immature Gran % (Auto) 0.400, Neut % (Auto) 61.0, Lymph % (Auto) 24.7, [place] % (Auto) 10.0, Eos % (Auto) 3.6, Baso % (Auto) 0.3, Absolute Neuts (auto) 6.7, Total Counted Not Reportable 09/19/18 10:30: Sodium 138, Potassium 3.6, Chloride 102, Carbon Dioxide 28.0, Anion Gap 8, BUN 11, Creatinine 1.06, Est GFR (MDRD) Af Amer 90, Est GFR (MDRD) Non-Af 75, BUN/Creatinine Ratio 10.4, Glucose 128 H, Calcium 8.6, Troponin I < 0.015 09/19/18 10:30: Magnesium 2.0 Rhythm: Sinus rhythm EKG: As noted above Stress Test: Stress echocardiogram: 01-24-18: Considered to be a pfycep-wcbayozn-hzbiehykab stress echocardiogram: Negative for evidence of inducible myocardial ischemia: With a final LVEF of 75% Cardiac Cath: 03-09-2018: Left ventricle normal with an LVEF of 65%; left main normal; LAD previously placed stent patent; diagonal branch previously placed stent patent; RCA with mid 30% stenosis. PCI: 10-06-2017: Reported as single-vessel disease of the LAD and diagonal branch with subsequent PTCA/LOPEZ of the LAD and diagonal branch with the LCx demonstrating mild luminal irregularities in the RCA demonstrating mild luminal irregularities CT scan: Preliminary report: No acute FOOD TESTER related event Assessment/Plan 1. Syncope The patient has had recurrent syncopal events. It is unclear at this time as to whether this has any relationship to his underlying cardiovascular disease status. The moment he has no evidence of acute coronary syndrome or acute left ventricular systolic dysfunction or documented correlating cardiac dysrhythmias or conduction system abnormalities to explain his events. From a cardiac standpoint he will continue to be monitored. He should continue cardiovascular medical therapy for his multiple cardiovascular conditions as deemed appropriate. He will be followed with telemetry monitoring, ECG, and an echocardiogram to reassess his left ventricular wall motion systolic function for any obvious decline that may in some way shape or form being a contributing factor to his findings. Otherwise he will need to be considered for further noncardiac evaluation of his events. This would include concerns of underlying neurologic related events especially noting his seizure disorder history and lack of medical therapy, etc. 2. CAD status post PCI The patient has a history of CAD and is undergone PCI as noted above. At the moment he does not describe any ongoing acute symptoms. He admits he has been on and off medications. He should continue medical therapy as deemed appropriate. He can be reassessed noninvasively as noted above. 3. Left ventricular dysfunction According to his previous medical records he has had evidence in the past of left ventricular systolic dysfunction. His most recent studies are as noted above. His left ventricle can be reassessed for any acute changes that may be contributing in some way shape or form to his ongoing events. This will be done with a transthoracic echocardiogram. 4. Hyperlipidemia He should continue risk factor evaluation and care and medical therapy as deemed appropriate. 5. Seizure disorder He will also be reassessed by neurology for concerns of his seizure disorder, lack of taking medications, and contribution to his syncopal events. Comment: The above was discussed and reviewed with the patient and Dr. Valdivia. This note was generated using a voice recognition system and there may be incorrect words, spelling or punctuation that were not noted when reviewing the office note prior to saving.
[2018-09-19 16:02] LABS: Amphetamine Urine VISTA NEGATIVE (<1000 ng/mL); Barbiturate Urine VISTA NEGATIVE (< 200 ng/mL); Benzodiazepine Urine VISTA NEGATIVE (< 200 ng/mL); Cocaine Urine VISTA NEGATIVE (< 300 ng/mL); Ecstacy Urine VISTA NEGATIVE (< 500 ng/mL); Methadone Urine VISTA NEGATIVE (< 300 ng/mL); PCP Urine VISTA NEGATIVE (< 25 ng/mL); THC Urine VISTA NEGATIVE (< 50 ng/mL); Vista UDS pH Range 6
[2018-09-19] MEDS: Aspirin E.C. 81 MG Tablet PO (17:12)
[2018-09-19] MEDS: Famotidine 20 MG Tablet PO (22:28)
[2018-09-19] MEDS: Atorvastatin Calcium 40 MG Tablet PO (22:28)
[2018-09-20] MEDS: Lactated Ringers 1,000 ML 100 ML IV (00:51)
[2018-09-20 03:00] VITALS: PULSE 63
[2018-09-20 04:15] VITALS: BP 108/80; BP 114/72; BP 119/62; PULSE 80; PULSE 87; PULSE 90; RESP 18; TEMP 36.7; O2SAT 95
--- NOTE | 2018-09-20 05:55 | EKG12_ITS ---
Test Reason : AM EKG Blood Pressure : / mmHG Vent. Rate : 064 BPM Atrial Rate : 064 BPM P-R Int : 152 ms QRS Dur : 100 ms QT Int : 422 ms P-R-T Axes : 076 -49 065 degrees QTc Int : 435 ms Normal sinus rhythm Left axis deviation Abnormal ECG When compared with ECG of 19-SEP-2018 10:26, MANUAL COMPARISON REQUIRED, DATA IS UNCONFIRMED Confirmed by KAMRYN WOODWARD, AUSTEN ([id number]), slot editor JIM LAGUERRE ([id number]) on 09/26/2018 6:49:01 AM Referred By: Gino Valdivia Confirmed By:WALTER HARRY MD
[2018-09-20 06:52] LABS: Anion Gap 7 (5-15); BUN 7 mg/dL (7-18); BUN/Creat Ratio 8.2 RATIO (10-20); Calcium,Total 8.2 mg/dL (8.5-10.1); Chloride 106 mmol/L (98-107); Cholesterol 130 mg/dL (200); Creatinine, Serum 0.85 mg/dL (0.70-1.30); EST Glomerular Filtration Rate 96 mL/min (>60); Est Glom Filt Rate - Afr Amer 116 mL/min (>60); Estimated Creatinine Clearance 76.99 ml/min; Glucose 114 mg/dL (74-106); High Density Lipoprotein 37 mg/dL; Potassium 3.8 mmol/L (3.5-5.1); Sodium Level 141 mmol/L (136-145); Thyroid Stim Hormone (TSH) 1.72 uIU/mL (0.358-3.74); Triglycerides 156 mg/dL; Very Low Density Lipoprotein 31 mg/dL (5-40)
[2018-09-20 07:00] VITALS: PULSE 65; O2SAT 96
[2018-09-20 10:09] VITALS: BP 127/76; PULSE 70; RESP 16; TEMP 36.4; O2SAT 95
[2018-09-20] MEDS: Famotidine 20 MG Tablet PO (10:13)
[2018-09-20] MEDS: Clopidogrel Bisulfate 75 MG Tablet PO (10:13)
[2018-09-20] MEDS: Aspirin E.C. 81 MG Tablet PO (10:13)
--- NOTE | 2018-09-20 10:46 | CASEMGMT ---
Assessment- SW completed assessment with patient. His neighbor was also present in the room, but patient was okay with proceeding. Living situation- Patient lives alone in mobile home with 4 entry steps. PCP: Patient goes to [facility] for his primary care Specialists: Dr Doherty-Cardiology and Dr Olivas- Neurology Pharmacy: [facility] DME: canes ADL's/IADL's: Patient states he drives, bathes, and manages all household responsibilities himself. He said he only uses his cane when he needs it. Past SNF/rehab: No Past HH: No LW: Yes and on file at [facility] POA: Yes and on file at [facility]. His daughter Octavia is his POA Patient told SW he plans on returning home. He said he does things himself and does not like help. His neighbor spoke up and said she is available to help him anytime and he has her number. Patient said he will not go go a SNF and he does not want home health. CECE and RN CM to follow and see how patient does with PT/OT. Helen LAIRD SNAKER
--- NOTE | 2018-09-20 11:28 | PCM.CONS.GEN ---
Reason for Consult Date of Consultation: 09/20/18 History of Present Illness: The patient is a 63 year old M [] Per admission note:The patient is a 63 year old M with history of coronary artery disease status post stents was brought into ER for recurrent syncope and fall. Patient had sudden onset of syncope with dizziness and fall in his yard for 2 consecutive days last 2 days. Patient denies any chest pain or missed heartbeat but he does not remember well as it happens suddenly and he found himself laying down when he wakes up. To ER physician, he said sometimes he feel racing heart to me he denies any palpitation. Patient also complained of twitching of right leg and right arm. He has tremor on right hand. Prior to that, he was admitted in February 2018 for recurrent seizures. Patient was started on Keppra but he self discontinued about 3 weeks ago because of confusion, disorientation, disequilibrium and he cannot do his work right. He had EEG in 02/2018 which reported as normal awake EEG. Past Medical History Past Medical History (Chronic Problems): Chronic Problems (Last Updated 08/21/18 @ 13:59 by Kaelyn Paula) Seizure (Chronic) Hyperlipidemia (Chronic) Atherosclerotic heart disease of [place] coronary artery without angina pectoris (Chronic) 3.0 X 32 mm Synergy LOPEZ to mid LAD; 2.5 x 16 MM Synergy LOPEZ to second diagonal per Dr. Doherty @ [facility] Stented coronary artery (Chronic 10/06/17) 3.0 X 32 mm Synergy LOPEZ to mid LAD; 2.5 x 16 MM Synergy LOPEZ to second diagonal per Dr. Doherty @ [facility] Atrial septal aneurysm (Chronic) Abnormal electrocardiogram (Chronic) Nicotine dependence (Chronic) Medical History: Medical History (Last Updated 08/21/18 @ 13:59 by Kaelyn Paula) Syncope and collapse (Acute) R55 Seizure (Chronic) R56.9 Hyperlipidemia (Chronic) E78.5 Atherosclerotic heart disease of [place] coronary artery without angina pectoris (Chronic) I25.10 3.0 X 32 mm Synergy LOPEZ to mid LAD; 2.5 x 16 MM Synergy LOPEZ to second diagonal per Dr. Doherty @ [facility] Atrial septal aneurysm (Chronic) I25.3 Abnormal electrocardiogram (Chronic) R94.31 Nicotine dependence (Chronic) F17.200 CVA (cerebral vascular accident) I63.9 MCA Infarct Chronic back pain M54.9, G89.29 Seizure R56.9 Allergies tuberculin, purified protein deriva Allergy (Verified 09/19/18 10:17) Swelling bumble bee stings Allergy (Severe, Uncoded 09/19/18 10:17) Anaphylaxis Home Medications: Ambulatory Orders Medication Instructions Recorded aspirin 81 mg tablet,delayed 81 mg PO QDAY 08/01/17 release nitroglycerin 0.4 mg sublingual 0.4 mg SUBLINGUAL Q5-15M PRN #25 03/03/18 tablet tab atorvastatin 40 mg tablet 40 mg PO QHS #90 tab 08/21/18 Clopidogrel Bisulfate [Clopidogrel] 75 mg PO DAILY 09/19/18 Surgical History: Surgical History (Last Reviewed 08/21/18 @ 13:34 by Kaelyn Paula) Stented coronary artery (Chronic) Onset Date: 10/06/17 Z95.5 3.0 X 32 mm Synergy LOPEZ to mid LAD; 2.5 x 16 MM Synergy LOPEZ to second diagonal per Dr. Doherty @ [facility] History of lumbar puncture Onset Date: ~04/2017 Z98.890 finger surgery lymph node resection Surgical History: no surgical history Psychiatric History: No pertinent psych hx Smoking Status: Current every day smoker - *Family History Maternal Family History: Family History (Last Reviewed 08/21/18 @ 13:34 by Kaelyn Paula) Mother Myocardial infarction Brother Myocardial infarction History Items: - - mother with different types of cancer Paternal Family History: Family History (Last Reviewed 08/21/18 @ 13:34 by Kaelyn Paula) Mother Myocardial infarction Brother Myocardial infarction History Items: - - Lung cancer - Physical Exam Vital Signs Temp Pulse Resp BP Pulse Ox 36.4 C L 70 16 127/76 H 95 09/20/18 10:09 09/20/18 10:09 09/20/18 10:09 09/20/18 10:09 09/20/18 10:09 Oxygen Delivery Method Room Air Weight: 62 kg Body Mass Index (BMI) 20.8 Orthostatic Vital Signs Start: 09/20/18 00:33 Freq: q24h Status: Active Protocol: Activity Type Activity Date Activity User E-Sign Co-Sign Detail Recorded Client Recorded Date Recorded By Document 09/20/18 04:15 HS [id number] 09/20/18 04:28 HS 09/20/18 04:15 Orthostatic Vitals Standing -Blood Pressure (90/60-120/80) 108/80 -Extremity Use Right Arm -Pulse Rate (60-100) 90 Sitting -Blood Pressure (90/60-120/80) 119/62 -Extremity Use Right Arm -Pulse Rate (60-100) 80 Lying -Blood Pressure (90/60-120/80) 114/72 -Extremity Use Right Arm -Pulse Rate (60-100) 87 Intake and Output for Last 24 Hours 09/18/18 09/19/18 09/20/18 23:59 23:59 23:59 Intake Total 1006 / 1006 1795 / 1795 Output Total 300 / 300 Balance 706 / 706 1795 / 1795 Laboratory Tests Past 24 Hrs 09/19/18 09/19/18 09/19/18 10:30 15:30 15:30 Sodium Potassium Chloride Carbon Dioxide Anion Gap BUN Creatinine Estim Creat Clear Calc Est GFR (MDRD) Af Amer Est GFR (MDRD) Non-Af BUN/Creatinine Ratio Glucose Calcium Magnesium 2.0 Troponin I < 0.015 Triglycerides Cholesterol LDL Cholesterol VLDL Cholesterol HDL Cholesterol TSH Urine Opiates Screen NEGATIVE Urine Methadone Screen NEGATIVE Ur Barbiturates Screen NEGATIVE Ur Phencyclidine Scrn NEGATIVE Ur Amphetamines Screen NEGATIVE U Methamphetamin-MDMA NEGATIVE U Benzodiazepines Scrn NEGATIVE Urine Cocaine Screen NEGATIVE U Cannabinoids Screen NEGATIVE Ur Drug Screen Comment 09/19/18 09/20/18 18:05 06:00 Sodium 141 Potassium 3.8 Chloride 106 Carbon Dioxide 28.0 Anion Gap 7 BUN 7 Creatinine 0.85 Estim Creat Clear Calc 76.99 Est GFR (MDRD) Af Amer 116 Est GFR (MDRD) Non-Af 96 BUN/Creatinine Ratio 8.2 L Glucose 114 H Calcium 8.2 L Magnesium Troponin I < 0.015 Triglycerides 156 Cholesterol 130 LDL Cholesterol 62 VLDL Cholesterol 31 HDL Cholesterol 37 L TSH 1.72 Urine Opiates Screen Urine Methadone Screen Ur Barbiturates Screen Ur Phencyclidine Scrn Ur Amphetamines Screen U Methamphetamin-MDMA U Benzodiazepines Scrn Urine Cocaine Screen U Cannabinoids Screen Ur Drug Screen Comment mri reviewed, no acute, 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
--- NOTE | 2018-09-20 12:02 | CASEMGMT ---
Therapy told patient he only eats a bologna sandwich daily as that is all he can afford. SW gave patient a list of local food pantries and churches that offer meals. SW also gave him information on Meals on Wheels. He told SW he has cupboards full of food, but doesn't cook anymore. Helen LAIRD MSW
--- NOTE | 2018-09-20 14:51 | DCINST_ITS ---
You will use the following diet at home:: Cardiac Your food should be the consistency of: Regular Discharge Activity: May Not Drive Call your doctor if you observe: Fever of 101 or Higher, Numbness or Tingling, Inability to urinate, Inability to have a bowel movement, Shortness of breath, Fainting spells, Swelling in the ankles, Chest pain, Prolonged hiccoughing, Increased palpitations (irregular heartbeat) Allergies/Adverse Reactions: Allergies tuberculin, purified protein deriva Allergy (Verified 09/19/18 10:17) Swelling bumble bee stings Allergy (Severe, Uncoded 09/19/18 10:17) Anaphylaxis Medications to take at Discharge aspirin 81 mg tablet,delayed release 81 mg PO QDAY 08/01/17 nitroglycerin 0.4 mg sublingual tablet 0.4 mg SUBLINGUAL Q5-15M PRN #25 tab 03/03/18 atorvastatin 40 mg tablet 40 mg PO QHS #90 tab 08/21/18 Clopidogrel Bisulfate [Clopidogrel] 75 mg PO DAILY 09/19/18 Carvedilol [Coreg] 3.125 mg PO BID #60 tab 09/20/18 Nicotine [Nicoderm Cq] 21 mg TRANSDERM. DAILY patch 09/20/18 Senna/Docusate Sodium [Senokot-S] 2 tab PO BID PRN PRN tab 09/20/18 The following prescriptions were given: Carvedilol [Coreg] 3.125 mg PO BID #60 tab Transmission Status: Pending to [facility] Primary Care Physician: Barbara Kimball NP-C [NON-STAFF] - Test Results: Test results from this visit will be discussed in further detail at your follow- up appointment, if applicable.
--- NOTE | 2018-09-20 14:55 | DS.PCM_ITS ---
Discharge Date and Diagnosis Date of Admission: 09/19/18 Date of Discharge: 09/20/18 - Primary Discharge Diagnosis Syncope most likely vasovagal - Secondary Discharge Diagnosis Chronic Problems (Last Updated 08/21/18 @ 13:59 by Kaelyn Paula) Seizure (Chronic) Hyperlipidemia (Chronic) Atherosclerotic heart disease of [place] coronary artery without angina pectoris (Chronic) 3.0 X 32 mm Synergy LOPEZ to mid LAD; 2.5 x 16 MM Synergy LOPEZ to second diagonal per Dr. Doherty @ [facility] Stented coronary artery (Chronic 10/06/17) 3.0 X 32 mm Synergy LOPEZ to mid LAD; 2.5 x 16 MM Synergy LOPEZ to second diagonal per Dr. Doherty @ [facility] Atrial septal aneurysm (Chronic) Abnormal electrocardiogram (Chronic) Nicotine dependence (Chronic) Hospital Course and Treatment Imaging Results: 09/20/18 15:02 Brain without Contrast [MRI] Routine Operations: None Summary of Care Provided: [] The patient is a 63 year old M with history of coronary artery disease status p ost stents was brought into ER for recurrent syncope and fall. Patient had sudden onset of syncope with dizziness and fall in his yard for 2 consecutive days last 2 days. Patient denies any chest pain or missed heartbeat but he does not remember well as it happens suddenly and he found himself laying down when he wakes up. To ER physician, he said sometimes he feel racing heart to me he denies any palpitation. Patient also complained of twitching of right leg and right arm. He has tremor on right hand. Prior to that, he was admitted in February 2018 for recurrent seizures. Patient was started on Keppra but he self discontinued about 3 weeks ago because of confusion, disorientation, disequilibrium and he cannot do his work right. He had EEG in 02/2018 which reported as normal awake EEG. 1. Sudden syncope, most probably vasovagal: Patient is wearing event monitor. Patient was admitted to PCU on telemetry. Serial troponin enzymes were negative. Branch Examiner was consulted and does not think any significant arrhythmia on the event monitor. Echo was done and shows segmental dysfunction with normal LV size and EF 55%. No evidence of diastolic dysfunction. Trivial MR, mild TR. Orthostatic vitals were negative. Branch Examiner advised to continue wearing event monitor for the duration and follow-up in the office. Coreg was given as the patient has a history of ischemic cardiomyopathy with coronary artery disease. 2. Atypical seizure, last one in February 2018: Patient is noncompliant with Keppra. As per the neurologist note, patient discontinued Keppra several months ago and has been doing well. In view of untoward side effects of Keppra he was experiencing, Keppra was discontinued. Patient did not had features of seizure at this time with no incontinence, postictal confusion or tongue bite therefore no need for antiseizure medication as per neurologist. 3. Coronary artery disease status post 2 stents in LAD and diagonal 2: Previous cardiac cath in March 2018 reviewed and shows patent stent. Stress echo in January 2018 reported as EF 55% with appropriate heart rate and blood pressure response to dobutamine. 4. Chronic active cigarette smoker/nicotine dependence: Patient smokes about 2 packs/day. On nicotine patch. Advised quitting smoking. 5. Other comorbidities include dyslipidemia, atrial septal aneurysm: Stable. FLP tomorrow morning. DVT prophylaxis: On Lovenox 40 mg subcu daily. Discharge medication reconciliation done. Discharge follow-up instructions completed. Discharge process discussed with the patient and all questions were answered to patient's satisfaction. Patient was advised follow-up with Dr. Doherty in 2 to 3 weeks with continuedevent monitor. Follow with PCP in 2 weeks. Total time spent, exact 35 minutes on discharge meds reconciliation, examination, review of imaging and blood test and discussion with the patient on follow-up instructions. Subjective: Seen and examined. No acute events overnight. Patient slept well. No chest pain, shortness of breath. Telemetry shows normal sinus rhythm. Orthostatic vitals do not show significant change in blood pressure on heart rate - Physical Exam General: Alert, Oriented x3, Cooperative HEENT: Atraumatic, PERRLA, EOMI, Normocephalic Neck: Supple, No JVD, Negative Carotid Bruits Lungs: Clear to auscultation, No rhonchi, No wheeze, No rales, Diminished Cardiovascular: Regular rate, Normal S1, Normal S2, No murmurs Abdomen: Bowel Sounds Present, Soft, Non Tender, Non-Distended Extremities: No edema, Capillary Refill Less than 3 Seconds Skin: No rashes, No breakdown Musculoskeletal: No Tenderness to Palpation of Joints or Extremities Neurological: Cranial nerves II-XII grossly intact, Deep Tendon Reflexes 2+/4 and Symmetrical, Neuro grossly intact, Motor Exam 5/5 strength throughout Psych/Mental Status: Normal Affect, Appropriate Vital Signs Temp Pulse Resp BP Pulse Ox 97.6 F L 70 16 127/76 H 95 09/20/18 10:09 09/20/18 10:09 09/20/18 10:09 09/20/18 10:09 09/20/18 10:09 Oxygen Delivery Method Room Air Weight: 136 lb 10.986 oz Body Mass Index (BMI) 20.8 Orthostatic Vital Signs Start: 09/20/18 00:33 Freq: q24h Status: Active Protocol: Activity Type Activity Date Activity User E-Sign Co-Sign Detail Recorded Client Recorded Date Recorded By Document 09/20/18 04:15 [id number] 09/20/18 04:28 HS 09/20/18 04:15 Orthostatic Vitals Standing -Blood Pressure (90/60-120/80 mm Hg) 108/80 -Extremity Use Right Arm -Pulse Rate (60-100 beats/min) 90 Sitting -Blood Pressure (90/60-120/80 mm Hg) 119/62 -Extremity Use Right Arm -Pulse Rate (60-100 beats/min) 80 Lying -Blood Pressure (90/60-120/80 mm Hg) 114/72 -Extremity Use Right Arm -Pulse Rate (60-100 beats/min) 87 Intake and Output for Last 24 Hours 09/18/18 09/19/18 09/20/18 23:59 23:59 23:59 Intake Total 1006 / 1006 1795 / 1795 Output Total 300 / 300 Balance 706 / 706 1795 / 1795 Laboratory Tests Past 24 Hrs 09/19/18 09/19/18 09/19/18 15:30 15:30 18:05 Sodium Potassium Chloride Carbon Dioxide Anion Gap BUN Creatinine Estim Creat Clear Calc Est GFR (MDRD) Af Amer Est GFR (MDRD) Non-Af BUN/Creatinine Ratio Glucose Calcium Troponin I < 0.015 < 0.015 Triglycerides Cholesterol LDL Cholesterol VLDL Cholesterol HDL Cholesterol TSH Urine Opiates Screen NEGATIVE Urine Methadone Screen NEGATIVE Ur Barbiturates Screen NEGATIVE Ur Phencyclidine Scrn NEGATIVE Ur Amphetamines Screen NEGATIVE U Methamphetamin-MDMA NEGATIVE U Benzodiazepines Scrn NEGATIVE Urine Cocaine Screen NEGATIVE U Cannabinoids Screen NEGATIVE Ur Drug Screen Comment 09/20/18 06:00 Sodium 141 Potassium 3.8 Chloride 106 Carbon Dioxide 28.0 Anion Gap 7 BUN 7 Creatinine 0.85 Estim Creat Clear Calc 76.99 Est GFR (MDRD) Af Amer 116 Est GFR (MDRD) Non-Af 96 BUN/Creatinine Ratio 8.2 L Glucose 114 H Calcium 8.2 L Troponin I Triglycerides 156 Cholesterol 130 LDL Cholesterol 62 VLDL Cholesterol 31 HDL Cholesterol 37 L TSH 1.72 Urine Opiates Screen Urine Methadone Screen Ur Barbiturates Screen Ur Phencyclidine Scrn Ur Amphetamines Screen U Methamphetamin-MDMA U Benzodiazepines Scrn Urine Cocaine Screen U Cannabinoids Screen Ur Drug Screen Comment Discharge Activity: May Not Drive Call your doctor if you observe: Fever of 101 or Higher, Numbness or Tingling, Inability to urinate, Inability to have a bowel movement, Shortness of breath, Fainting spells, Swelling in the ankles, Chest pain, Prolonged hiccoughing, Increased palpitations (irregular heartbeat) Home Medications: Medications to take at Discharge aspirin 81 mg tablet,delayed release 81 mg PO QDAY 08/01/17 nitroglycerin 0.4 mg sublingual tablet 0.4 mg SUBLINGUAL Q5-15M PRN #25 tab 03/03/18 atorvastatin 40 mg tablet 40 mg PO QHS #90 tab 08/21/18 Clopidogrel Bisulfate [Clopidogrel] 75 mg PO DAILY 09/19/18 Carvedilol [Coreg] 3.125 mg PO BID #60 tab 09/20/18 Nicotine [Nicoderm Cq] 21 mg TRANSDERM. DAILY patch 09/20/18 Senna/Docusate Sodium [Senokot-S] 2 tab PO BID PRN PRN tab 09/20/18 Following Prescrptions Were Given to Patient: Carvedilol [Coreg] 3.125 mg PO BID #60 tab Transmission Status: Pending to [facility] Primary Care Physician: Barbara Kimball NP-C [NON-STAFF] - Medical Necessity - Tobacco Use Smoking Status: Current every day smoker Meaningful Use Info Meaningful Use Diagnoses (Choose all that apply): None applicable Code Visit OBSV E&M: 21825 Observation care discharge
[2018-09-20 14:58] VITALS: BP 119/57; PULSE 68; RESP 14; TEMP 36.6; O2SAT 99
[2018-09-20 15:00] VITALS: PULSE 72
--- NOTE | 2018-09-20 15:02 | MRI_ITS ---
STUDY: MRI BRAIN WITHOUT CONTRAST REASON FOR EXAM: Male, 63 years old. Syncope with seizure. TECHNIQUE: Standardized multiplanar fat and water weighted pulse sequences were obtained. COMPARISON: 13 February 2018 MRI FINDINGS: There is mild cerebral atrophy with widening of the extra-axial spaces and ventricular dilatation. There are a limited number of small white matter hyperintensities, distributed throughout the deep white matter tracts of the cerebral hemispheres, consistent with mild chronic white matter ischemic changes. Within the right posterior parietal lobe are multiple regions of encephalomalacia and gliosis from previous watershed infarct. There is no evidence for recent intracranial ischemia or other cause of cytotoxic edema on diffusion weighted imaging (DWI). Mild hemosiderin staining on GRE imaging within the right parietal region of encephalomalacia is present. Normal bilateral basal ganglia. Normal thalami. There is no extra-axial fluid accumulation. Normal flow voids within the major intracranial circulation suggesting patency by spin echo criteria. Normal sella turcica, pituitary gland, infundibular stalk, optic chiasm and hypothalamus. Normal tectal plate and pineal gland. Normal midbrain, arcelia and medulla. Normal cerebellum. Normal basal cisterns. Normal bilateral temporal bones. Normal bilateral internal auditory canals. No demonstrated orbital abnormality, within the constraints of a routine brain study. Normal visualized paranasal sinuses. Normal calvarium and skull base. Normal visualized soft tissue structures. Normal visualized upper cervical spine. MRI/Brain without Contrast IMPRESSION: Senescent changes as above with similar right posterior parietal watershed region of previous encephalomalacia and gliosis, possibly causing seizure focus, clinically correlate. Otherwise no evidence of acute intracranial bleed, mass or ischemia. Electronically Signed: John Kumar DO at 10:41 EDT , Service support ,
--- NOTE | 2018-09-21 10:24 | EEG_ITS ---
- Electroencephalogram Date of service 09/20/2018 This is an 18 channel electro esophagram performed on this 63-year-old male with a history of syncope and seizures. The test is performed utilizing the International 10-20 electrode placement protocol as well as hyperventilation, photic stimulation and EKG reference leads. Background activity is 8 Hz symmetr ically in the posterior leads which attenuates with eye-opening. Hyperventilation is performed for 2 minutes with good effort with no lateralizing or epileptiform changes. The patient experienced wakefulness and drowsiness during the recording without lateralizing or epileptiform changes. EKG was normal sinus rhythm throughout the recording and photic stimulation generates a normal symmetric driving response. Impression: Normal awake and drowsy electroencephalogram.
== END 2018-09-20 14:54 | disposition home or self-care (01) ==
LOC: ED 10:39 → PCU 12:44
PROVIDERS: Admitting Provider Internal Medicine; Emergency Provider Emergency Medicine; Referring Provider Internal Medicine; Visit Provider Internal Medicine
DX: R55 Syncope and collapse (principal); E78.5 Hyperlipidemia, unspecified; I25.10 Atherosclerotic heart disease of native coronary artery without angina pectoris; I08.1 Rheumatic disorders of both mitral and tricuspid valves; R94.31 Abnormal electrocardiogram [ECG] [EKG]; G40.909 Epilepsy, unspecified, not intractable, without status epilepticus; F17.210 Nicotine dependence, cigarettes, uncomplicated; Z91.14 Patient's other noncompliance with medication regimen; Z79.899 Other long term (current) drug therapy; Z79.82 Long term (current) use of aspirin; Z79.02 Long term (current) use of antithrombotics/antiplatelets
CPT/HCPCS: 36415; 70450; 70551; 71045; 80048; 80061; 80307; 80320; 83735; 84443; 84484; 85025; 93005; 93306; 95819; 96361; 96374; 97162; 97166; 97802; 99218; 99285; J7030; J7120; A4216; G0378; G0480

== ENCOUNTER 2020-04-05 17:04 | Emergency (ER) | payer MEDICARE, MEDICAID, SELFPAY ==
[2017-10-06 13:03] VITALS: BMI 22.4
[2019-09-26 14:08] VITALS: BMI 22.3
[2020-04-05 17:06] VITALS: BP 144/74; PULSE 69; RESP 20; TEMP 36.9; O2SAT 97; BMI 21.7
--- NOTE | 2020-04-05 17:35 | EKG12_ITS ---
Test Reason : Blood Pressure : / mmHG Vent. Rate : 067 BPM Atrial Rate : 067 BPM P-R Int : 156 ms QRS Dur : 098 ms QT Int : 404 ms P-R-T Axes : 082 -62 068 degrees QTc Int : 426 ms Sinus rhythm with Premature atrial complexes with Aberrant conduction Left axis deviation Septal infarct , age undetermined Abnormal ECG Confirmed by CONCETTA WOODWARD, HAL ([id number]), newspaper photo editor COREEN BOYER ([id number]) on 04/07/2020 8:48:35 AM Referred By: Confirmed By:HAL HYLTON MD
[2020-04-05 17:49] LABS: Absolute Lymphocyte Count 3.16 X10^3/uL (0.83-4.51); Absolute Neutrophil Count 3.6 X10^3/uL (2.0-7.7); Basophil# 0.06 X10^3/uL; Basophil% 0.8 % (0-1); Eosinophil# 0.36 X10^3/uL; Eosinophils% 4.6 % (0-5); Hematocrit 47.5 % (40-54); Hemoglobin 15.7 g/dL (13.0-16.5); Lymphocyte # 3.16 X10^3/ul (4.0); Lymphocyte % 40.1 % (19-41); Mean Corp Hgb Conc 33.1 g/dL (32-36); Mean Corpuscular Hgb 31.5 pg (27.0-32.0); Mean Corpuscular Volume 95.4 fL (80-94); Mean Platelet Vol. 9.6 fl (6.2-12.0); Monocyte% 8.9 % (0-10); NRBC Flagged by Analyzer 0 % (0-5); Neutrophil # 3.58 X10^3/uL (2.7-7.7); Neutrophil % 45.3 % (47-70); Platelet Count 301 K/mm3 (150-450); RBC Distribution Width CV 12.6 % (11.6-14.6); RBC Distribution Width SD 45.1 fl (35.1-43.9); Red Blood Count 4.98 M/mm3 (4.6-6.2); White Blood Count 7.9 K/mm3 (4.4-11.0)
[2020-04-05 17:54] LABS: Prothrombin Time (Protime)PT. 12.6 SECONDS (11.7-14.9)
[2020-04-05 17:55] LABS: Partial Thromboplast Time 29.6 Seconds (24.1-36.2)
[2020-04-05 17:59] LABS: Alcohol, Blood (Medical)-Serum < 3.0 mg/dL
[2020-04-05 18:06] LABS: AST(SGOT) 13 U/L (15-37); Alanine Aminotransfer ALT/SGPT 13 U/L (16-61); Albumin, Serum 3.5 g/dL (3.2-5.0); Alkaline Phosphatase 76 U/L (45-117); Anion Gap 5 (5-15); BUN 13 mg/dL (7-18); BUN/Creat Ratio 12.3 RATIO (10-20); Calcium,Total 8.7 mg/dL (8.5-10.1); Chloride 107 mmol/L (98-107); Creatinine, Serum 1.06 mg/dL (0.70-1.30); EST Glomerular Filtration Rate 74 mL/min (>60); Est Glom Filt Rate - Afr Amer 90 mL/min (>60); Estimated Creatinine Clearance 71.32 ml/min; Globulin 3.4 g/dL (2.2-4.2); Glucose 103 mg/dL (74-106); Lipase 51 U/L (73-393); Potassium 4.5 mmol/L (3.5-5.1); Protein, Total 6.9 g/dL (6.4-8.2); Sodium Level 138 mmol/L (136-145)
[2020-04-05] MEDS: 0.9% Normal Saline 1,000 ML 1000 ML IV (18:07)
[2020-04-05] MEDS: LORazepam 2 MG/ML Syringe 1 MG IV (18:07)
--- NOTE | 2020-04-05 18:08 | RAD_ITS ---
STUDY: X-RAY CHEST REASON FOR EXAM: Male, 64 years old. SYNCOPE EPISODE; HIGH BP;TREMORS;ALTERED MENTAL STATUS TECHNIQUE: AP COMPARISON: 09/19/2018 FINDINGS: EKG leads project over the chest. Granuloma in the right upper lobe is stable. No airspace consolidation. There is no demonstrated pleural abnormality. Normal size heart. Normal mediastinum and mariluz. Normal visualized pulmonary arteries. Normal visualized aortic arch and descending thoracic aorta. Normal visualized thoracic spine. Normal visualized ribs, clavicles, and shoulders. There is no demonstrated abnormality of the visualized soft tissue structures of the upper abdomen. RAD/Chest 1 View (Portable) IMPRESSION: Stable, nonacute portable x-ray examination of the chest. Electronically Signed: Varun Hackett MD (Brooks) at 18:47 EST , Service support ,
--- NOTE | 2020-04-05 18:20 | CT_ITS ---
STUDY: CT BRAIN WITHOUT CONTRAST REASON FOR EXAM: Male, 64 years old. ALTERED MENTAL STATUS. HX OF STROKE AND SEIZURES. RADIATION DOSAGE (If Supplied By Facility): CTDIvol = ( 44.99 ) mGy, DLP = ( 796.11 ) mGycm TECHNIQUE: Transaxial CT imaging of the brain was performed without administration of intravenous contrast material. Individualized dose optimization techniques were used for this CT. COMPARISON: 09/19/2018 FINDINGS: Normal soft tissue structures. Normal calvarium. Normal size ventricles and extra-axial spaces for the patient''s age. Encephalomalacia and gliosis of the right parietal and posterior temporal lobes stable. Normal basal ganglia and thalami. Normal brainstem. Normal cerebellum. There is no intracranial hemorrhage. There are no findings of an acute ischemic infarction. Normal visualized paranasal sinuses. CT/Brain/Head without Contrast IMPRESSION: 1. No acute intracranial hemorrhage or mass effect. 2. Stable posterior MCA territory infarction (right). Electronically Signed: Varun Hackett MD (Brooks) at 18:46 EST , Service support ,
[2020-04-05 18:27] LABS: Lactic Acid 1.4 mmol/L (0.4-1.9)
[2020-04-05 19:29] LABS: Bacteria 0 SEEN /hpf (None Seen); Color, Urine Yellow (Yellow); Glucose, Dipstick Normal (Normal); Ketone-Dipstick Negative (Negative); Leukocyte Esterase-Dipstick Negative /ul (Negative); Mucous, Urine 0 SEEN /hpf (<or=2+); Nitrite-Dipstick Negative (Negative); Occult Blood-Urine 10 /ul (Negative); Protein-Dipstick Negative (Negative); Red Blood Cells-Urine 0 SEEN /hpf (0-5); Specific Gravity, Urine 1.005 (1.002-1.030); Urine Bilirubin Dipstick Negative (Negative); Urine Clarity Clear (Clear); Urine Urobilinogen Normal (Normal)
[2020-04-05 19:34] VITALS: BP 136/81; PULSE 67; RESP 15; O2SAT 99
[2020-04-05 19:46] LABS: Squamous Epithelial Cells - UA 0-5 SEEN /hpf (0-5); White Blood Cells 0-5 SEEN /hpf (0-5)
[2020-04-05 19:47] LABS: Amphetamine Urine VISTA NEGATIVE (<1000 ng/mL); Barbiturate Urine VISTA NEGATIVE (< 200 ng/mL); Benzodiazepine Urine VISTA NEGATIVE (< 200 ng/mL); Cocaine Urine VISTA NEGATIVE (< 300 ng/mL); Ecstacy Urine VISTA NEGATIVE (< 500 ng/mL); Methadone Urine VISTA NEGATIVE (< 300 ng/mL); PCP Urine VISTA NEGATIVE (< 25 ng/mL); THC Urine VISTA NEGATIVE (< 50 ng/mL); Vista UDS pH Range 7
--- NOTE | 2020-04-05 21:55 | ED.VIS.GEN ---
History of Present Illness Chief Complaint: Seizure Informant: Patient Narrative: 64-year-old male presenting via EMS states he does not know why he is here. He is not know who called the ambulance he states that he does not have any symptoms other than his right hand has a tremor in it intermittently. He cannot recall what day it is. He cannot recall any other symptoms that he is having other than his tremor. EMS tells me that they were called to the trailer home. They found him sitting on the couch shaking. They said his name and he merely responded to them. After about 2 minutes only his right arm was shaking. I see that in the past he has saw neurology for seizure disorder. 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 Past Medical History - Allergies and Home Meds Allergies/Adverse Reactions: Allergies tuberculin, purified protein deriva Allergy (Verified 04/05/20 18:06) Swelling bumble bee stings Allergy (Severe, Uncoded 04/05/20 18:06) Anaphylaxis Primary Care Physician: Anthony Escamilla III, MD [STAFF PHYSICIAN] - As soon as possible (for primary care) Surgical History: no surgical history Smoking Status: Current every day smoker - Family History Maternal Family History: Family History (Last Reviewed 09/26/19 @ 14:26 by Debbie JO, PA) Mother Myocardial infarction Brother Myocardial infarction Family History: Reports: - - mother with different types of cancer Paternal Family History: Family History (Last Reviewed 09/26/19 @ 14:26 by Debbie JO, PA) Mother Myocardial infarction Brother Myocardial infarction Family History: Reports: - - Lung cancer Review of Systems ROS: Unable to Obtain Physical Exam Vital Signs/Narrative: Vital Signs Pulse Resp BP Pulse Ox 04/05/20 19:34 67 15 136/81 H 99 Inital Vital Signs reviewed: Yes General: Well nourished, Well developed, No Acute Distress Head: Normocephalic, Atraumatic Eyes: Perrl, EOMI ENT: Moist mucous membranes, No rhinorrhea Neck: Supple, Nontender Cardiovascular: Regular rate, Regular rhythm, No murmurs Respiratory: No distress, CTA bilaterally, Chest nontender Abdomen: Soft, Nontender, Nondistended, Normal bowel sounds Back: Nontender, Normal Inspection Extremities: Nontender, No edema Skin: Normal color, No rash Neurological: Alert, Cranial nerves II-XII grossly intact, Normal Strength, Normal Sensation, - - Patient has an intermittent intention tremor of the right hand Diagnostic/Tx/Re-eval Clinical Impression(s) from Imaging Studies Chest X-Ray 04/05/20 18:08 IMPRESSION: Stable, nonacute portable x-ray examination of the chest. Electronically Signed: Varun Hackett MD (Brooks) at 18:47 EST , Service support , Brain CT 04/05/20 18:20 IMPRESSION: 1. No acute intracranial hemorrhage or mass effect. 2. Stable posterior MCA territory infarction (right). Electronically Signed: Varun Hackett MD (Brooks) at 18:46 EST , Service support , Laboratory Last Values WBC 7.9 K/mm3 (4.4-11.0) 04/05/20 17:10 RBC 4.98 M/mm3 (4.6-6.2) 04/05/20 17:10 Hgb 15.7 g/dL (13.0-16.5) 04/05/20 17:10 Hct 47.5 % (40-54) 04/05/20 17:10 MCV 95.4 fL (80-94) H 04/05/20 17:10 MCH 31.5 pg (27.0-32.0) 04/05/20 17:10 MCHC 33.1 g/dL (32-36) 04/05/20 17:10 RDW Std Deviation 45.1 fl (35.1-43.9) H 04/05/20 17:10 RDW Coeff of [place] 12.6 % (11.6-14.6) 04/05/20 17:10 Plt Count 301 K/mm3 (150-450) 04/05/20 17:10 MPV 9.6 fl (6.2-12.0) 04/05/20 17:10 Immature Gran % (Auto) 0.300 % (0.0-0.9) 04/05/20 17:10 Neut % (Auto) 45.3 % (47-70) L 04/05/20 17:10 Lymph % (Auto) 40.1 % (19-41) 04/05/20 17:10 [place] % (Auto) 8.9 % (0-10) 04/05/20 17:10 Eos % (Auto) 4.6 % (0-5) 04/05/20 17:10 Baso % (Auto) 0.8 % (0-1) 04/05/20 17:10 Absolute Neuts (auto) 3.6 X10^3/uL (2.0-7.7) 04/05/20 17:10 Absolute Lymphs (auto) 3.16 X10^3/uL (0.83-4.51) 04/05/20 17:10 Nucleated RBC % 0 % (0-5) 04/05/20 17:10 PT 12.6 SECONDS (11.7-14.9) 04/05/20 17:10 INR 1.0 04/05/20 17:10 APTT 29.6 Seconds (24.1-36.2) 04/05/20 17:10 Sodium 138 mmol/L (136-145) 04/05/20 17:10 Potassium 4.5 mmol/L (3.5-5.1) 04/05/20 17:10 Chloride 107 mmol/L (98-107) 04/05/20 17:10 Carbon Dioxide 26.0 mmol/L (21.0-32.0) 04/05/20 17:10 Anion Gap 5 (5-15) 04/05/20 17:10 BUN 13 mg/dL (7-18) 04/05/20 17:10 Creatinine 1.06 mg/dL (0.70-1.30) 04/05/20 17:10 Estim Creat Clear Calc 71.32 ml/min 04/05/20 17:10 Est GFR (MDRD) Af Amer 90 mL/min (>60) 04/05/20 17:10 Est GFR (MDRD) Non-Af 74 mL/min (>60) 04/05/20 17:10 BUN/Creatinine Ratio 12.3 RATIO (10-20) 04/05/20 17:10 Glucose 103 mg/dL (74-106) 04/05/20 17:10 Lactic Acid 1.4 mmol/L (0.4-1.9) 04/05/20 17:55 Calcium 8.7 mg/dL (8.5-10.1) 04/05/20 17:10 Total Bilirubin 1.00 mg/dL (0.20-1.00) 04/05/20 17:10 AST 13 U/L (15-37) L 04/05/20 17:10 ALT 13 U/L (16-61) L 04/05/20 17:10 Alkaline Phosphatase 76 U/L (45-117) 04/05/20 17:10 Troponin I < 0.015 ng/mL (<0.045) 04/05/20 17:10 Total Protein 6.9 g/dL (6.4-8.2) 04/05/20 17:10 Albumin 3.5 g/dL (3.2-5.0) 04/05/20 17:10 Globulin 3.4 g/dL (2.2-4.2) 04/05/20 17:10 Albumin/Globulin Ratio 1.0 RATIO (0.9-2.4) 04/05/20 17:10 Lipase 51 U/L (73-393) L 04/05/20 17:10 Urine Color Yellow (Yellow) 04/05/20 18:50 Urine Clarity Clear (Clear) 04/05/20 18:50 Urine pH 7.0 (5.0 - 8.0) 04/05/20 18:50 Ur Specific [place] 1.005 (1.002-1.030) 04/05/20 18:50 Urine Protein Negative mg/dl (Negative) 04/05/20 18:50 Urine Glucose (UA) Normal mg/dl (Normal) 04/05/20 18:50 Urine Ketones Negative mg/dl (Negative) 04/05/20 18:50 Urine Occult Blood 10 /ul (Negative) H 04/05/20 18:50 Urine Nitrite Negative (Negative) 04/05/20 18:50 Urine Bilirubin Negative mg/dL (Negative) 04/05/20 18:50 Urine Urobilinogen Normal mg/dl (Normal) 04/05/20 18:50 Ur Leukocyte Esterase Negative /ul (Negative) 04/05/20 18:50 Urine RBC 0 SEEN /hpf (0-5) 04/05/20 18:50 Urine WBC 0-5 SEEN /hpf (0-5) 04/05/20 18:50 Ur Squamous Epith Cells 0-5 SEEN /hpf (0-5) 04/05/20 18:50 Urine Bacteria 0 SEEN /hpf (None Seen) 04/05/20 18:50 Urine Mucus 0 SEEN /hpf (<or=2+) 04/05/20 18:50 Urine Opiates Screen NEGATIVE (< 300 ng/mL) 04/05/20 18:50 Urine Methadone Screen NEGATIVE (< 300 ng/mL) 04/05/20 18:50 Ur Barbiturates Screen NEGATIVE (< 200 ng/mL) 04/05/20 18:50 Ur Phencyclidine Scrn NEGATIVE (< 25 ng/mL) 04/05/20 18:50 Ur Amphetamines Screen NEGATIVE (<1000 ng/mL) 04/05/20 18:50 U Methamphetamin-MDMA NEGATIVE (< 500 ng/mL) 04/05/20 18:50 U Benzodiazepines Scrn NEGATIVE (< 200 ng/mL) 04/05/20 18:50 Urine Cocaine Screen NEGATIVE (< 300 ng/mL) 04/05/20 18:50 U Cannabinoids Screen NEGATIVE (< 50 ng/mL) 04/05/20 18:50 Ur Drug Screen Comment 04/05/20 18:50 Ethyl Alcohol < 3.0 mg/dL 04/05/20 17:10 - EKG Initial EKG Interpretation: Sinus Rhythm - KG demonstrates a sinus rhythm at a rate of 67 bpm. Ectopy noted. Baseline is not optimal secondary to tremor. - Medical Decision Making Basic blood work tox CT brain negative. My impression of the single view chest x-ray is no acute process. Radiology concurs. Patient cannot provide me any reason for why he is here. I reexamined him several times he is no longer has a tremor. He states he has no recollection of what happened. He does tell me that he has a history of stroke, heart attack, and seizures. He took himself off of all of his medicines does not want to be on any or hospitalized. Patient cannot really tell me what was going on and there is really no history to provide much details. My suspicion is that he probably had a seizure and has amnestic events. Unfortunately he does not wish to seek treatment for his seizures and I would suspect this is going to happen again. At this point patient will be discharged home. ED Disposition - Plan for ED Patient: Disposition: Home or Assisted Living Diagnosis: Altered mental status, Epilepsy Instructions: ED ALOC Referrals: Anthony Escamilla III, MD [STAFF PHYSICIAN] - As soon as possible (for primary care)
[2020-04-05 22:22] VITALS: BP 132/78; PULSE 68; RESP 16; O2SAT 97
== END 2020-04-05 22:24 | disposition home or self-care (01) ==
PROVIDERS: Emergency Provider Emergency Medicine
DX: R41.82 Altered mental status, unspecified (principal); G40.409 Other generalized epilepsy and epileptic syndromes, not intractable, without status epilepticus; R25.1 Tremor, unspecified; Z86.73 Personal history of transient ischemic attack (TIA), and cerebral infarction without residual deficits; Z82.49 Family history of ischemic heart disease and other diseases of the circulatory system; Z80.1 Family history of malignant neoplasm of trachea, bronchus and lung; F17.200 Nicotine dependence, unspecified, uncomplicated; I49.1 Atrial premature depolarization; R94.31 Abnormal electrocardiogram [ECG] [EKG]
CPT/HCPCS: 70450; 71045; 80053; 80307; 81001; 82077; 83605; 83690; 84484; 85025; 85610; 85730; 93005; 96361; 96374; 99285; J7030; A4216

== ENCOUNTER → 2020-08-25 12:25 | Outpatient (CLI) | payer MEDICARE, SELFPAY ==
[2017-10-06 13:03] VITALS: BMI 22.4
[2020-08-21 15:40] VITALS: BMI 21.1
[2020-08-25 13:36] LABS: Hematocrit 46.7 % (40-54); Hemoglobin 15.8 g/dL (13.0-16.5); Mean Corp Hgb Conc 33.8 g/dL (32-36); Mean Corpuscular Hgb 31.9 pg (27.0-32.0); Mean Corpuscular Volume 94.2 fL (80-94); Mean Platelet Vol. 10.1 fl (6.2-12.0); Platelet Count 305 K/mm3 (150-450); RBC Distribution Width CV 12.5 % (11.6-14.6); RBC Distribution Width SD 43.6 fl (35.1-43.9); Red Blood Count 4.96 M/mm3 (4.6-6.2); White Blood Count 10.1 K/mm3 (4.4-11.0)
[2020-08-25 14:17] LABS: AST(SGOT) 11 U/L (15-37); Alanine Aminotransfer ALT/SGPT 14 U/L (16-61); Albumin, Serum 3.5 g/dL (3.2-5.0); Alkaline Phosphatase 96 U/L (45-117); Anion Gap 5 (5-15); BUN 9 mg/dL (7-18); Calcium,Total 8.6 mg/dL (8.5-10.1); Chloride 107 mmol/L (98-107); Cholesterol 189 mg/dL (200); EST Glomerular Filtration Rate 79 mL/min (>60); Est Glom Filt Rate - Afr Amer 96 mL/min (>60); Globulin 3.4 g/dL (2.2-4.2); Glucose 103 mg/dL (74-106); High Density Lipoprotein 45 mg/dL; Potassium 3.9 mmol/L (3.5-5.1); Protein, Total 6.9 g/dL (6.4-8.2); Sodium Level 138 mmol/L (136-145); Thyroid Stim Hormone (TSH) 1.59 uIU/mL (0.358-3.74); Triglycerides 147 mg/dL; Very Low Density Lipoprotein 29 mg/dL (5-40)
== END ==
PROVIDERS: Referring Provider Psychiatry & Neurology Neurology; Visit Provider Psychiatry & Neurology Neurology
DX: E78.5 Hyperlipidemia, unspecified (principal); G40.409 Other generalized epilepsy and epileptic syndromes, not intractable, without status epilepticus; I67.9 Cerebrovascular disease, unspecified
CPT/HCPCS: 36415; 80053; 80061; 84443; 85027

== ENCOUNTER → 2020-09-04 13:23 | Outpatient (CLI) | payer MEDICARE, MEDICAID, SELFPAY ==
[2017-10-06 13:03] VITALS: BMI 22.4
[2020-08-21 15:40] VITALS: BMI 21.1
--- NOTE | 2020-09-04 13:24 | CDU_ITS ---
Reason For Study: stroke Rt. Velocities/BP Lt. Velocities/BP Prox CCA 129.5/30.4 cm/sec. Prox CCA 132.1/38.9 cm/sec. Mid CCA 104.7/26.5 cm/sec. Mid CCA 112.0/33.4 cm/sec. Dist CCA 90.4/27.8 cm/sec. Dist CCA 62.9/22.3 cm/sec. Prox ICA 61.7/17.3 cm/sec. Prox ICA 36.2/13.5 cm/sec. Mid ICA 57.8/25.2 cm/sec. Mid ICA 63.6/25.8 cm/sec. Dist ICA 72.1/31.7 cm/sec. Dist ICA 67.4/29.6 cm/sec. Rt. ICA/CCA = .7. Lt. ICA/CCA = .6. Prox ECA 68.2/17.3 cm/sec. Prox ECA 71.7/19.0 cm/sec. Rt. Vert. 56.5/17.3 cm/sec. Lt. Vert. 35.2/9.9 cm/sec. Right Extracranial There is intimal thickening but no significant atherosclerotic plaque noted in the right common carotid artery. There is heterogeneous, irregular atherosclerotic plaque noted in the right internal carotid artery. There is intimal thickening but no significant atherosclerotic plaque noted in the right external carotid artery. Antegrade flow is noted in the right vertebral artery. Left Extracranial There is homogeneous, smooth atherosclerotic plaque noted in the left common carotid artery. There is heterogeneous, irregular atherosclerotic plaque noted in the left internal carotid artery. There is intimal thickening but no significant atherosclerotic plaque noted in the left external carotid artery. Antegrade flow is noted in the left vertebral artery. Procedure Carotid Duplex [id number]. This is a Carotid Duplex examination using B-mode, color flow and specral Doppler. The exam was diagnostic. Exam performed in department. VL/Carotid Duplex Ultrasound Interpretation Summary Mild irregular heterogenous plaque proximal right internal carotid artery with less than 50% stenosis Less than 50% stenosis right external carotid artery Mild irregular heterogenous plaque of the proximal left internal carotid artery with less than 50% stenosis Less than 50% stenosis left external carotid artery Patent and antegrade vertebral arteries bilaterally Ordering Physician: Alfonso Jain Performed By: Ryan Goldstein RVT
== END ==
PROVIDERS: Referring Provider Psychiatry & Neurology Neurology; Visit Provider Psychiatry & Neurology Neurology
DX: I63.89 Other cerebral infarction (principal)
CPT/HCPCS: 93880

== ENCOUNTER 2021-01-21 20:29 | Emergency (ER) | payer MEDICARE, MEDICAID, SELFPAY ==
[2017-10-06 13:03] VITALS: BMI 22.4
[2021-01-21 20:30] VITALS: BP 134/82; PULSE 73; RESP 18; TEMP 37.1; O2SAT 98; BMI 21.2
[2021-01-21 20:43] VITALS: BP 149/77; PULSE 73; RESP 14; TEMP 36.8; O2SAT 96
--- NOTE | 2021-01-21 20:56 | CT_ITS ---
EXAMINATION : Head CT w/out contrast HISTORY : Headache, syncope COMPARISON : 04/05/2020. TECHNIQUE : Multiple contiguous axial images were obtained from the skull base to the vertex without intravenous contrast. A radiation dose optimization technique was used for this scan. FINDINGS : The ventricles and sulci are normal in size. There is no evidence for acute intracranial hemorrhage, mass effect, or midline shift. There is no extra-axial fluid collection. There is normal ferrer-white differentiation, without CT evidence of acute ischemia or infarct. Right parieto-occipital encephalomalacia. The skull base and calvarium are unremarkable. The orbits are unremarkable. Mucosal thickening of several ethmoid air cells. The mastoid air cells are well-aerated. The soft tissues are unremarkable. CT/Brain/Head without Contrast IMPRESSION: No acute intracranial abnormality. Right parieto-occipital encephalomalacia. Electronically Signed: Lukas Troy MD at 21:41 EDT Tel , Service support ,
--- NOTE | 2021-01-21 20:56 | EKG12_ITS ---
Test Reason : DYSRHYTHMIA Blood Pressure : / mmHG Vent. Rate : 066 BPM Atrial Rate : 066 BPM P-R Int : 140 ms QRS Dur : 116 ms QT Int : 426 ms P-R-T Axes : 075 -53 071 degrees QTc Int : 446 ms Sinus rhythm with occasional Premature ventricular complexes Left axis deviation Abnormal ECG Confirmed by KAMRYN WOODWARD, AUSTEN ([id number]), poolroom/poolhall manager COREEN BOYER ([id number]) on 01/22/2021 1:54:41 P M Referred By: ARCHANA Confirmed By:WALTER HARRY MD
--- NOTE | 2021-01-21 21:02 | EX.ED.DYSGE1 ---
HPI History of Present Illness Chief Complaint: Headache Detail of Chief Complaint: Headache, syncope, weight loss and diarrhea Informant: patient and friend Onset/Context/Timing Onset: Hours (The single episode occurred 1 hour prior to arrival), Weeks (The headache has been present for 1 week) and Month(s) (Patient reports diarrhea x1 month) Context: Gradual Onset and Sudden Onset (Syncope while sitting at kitchen table) Timing: Continuous (Headache has been continuous since onset.) Quality: Pain Location: Periorbital bilaterally Current Severity: Moderate Maximum Severity: Severe Worsened by: Nothing Relieved by: Nothing Associated Symptoms Associated Symptoms: Syncope today and diarrhea x1 month with weight loss Narrative Narrative: Patient is a 65-year-old male with history of seizures. Is not seen a doctor in many years and been out of his seizure medicine. Family states he did not have seizure activity. He reports diarrhea of 3-5 loose watery stools for 1 month. He denies blood or mucus in his stool. He has had no ill contacts. He denies fever chills. Denies history of inflammatory bowel disorder. He states the headache started 1 week ago is by lateral and periorbital. Nothing makes the pain better or worse. Denies photophobia. Does complain of neck pain but not neck stiffness. There is no family history of subarachnoid hemorrhage. He denies ringing in his ears, decreased hearing or drainage from his ears. He denies rhinorrhea, congestion or postnasal drainage. He denies sore throat. He has been a smoker since age of 4. He states his pants are loose on him and has lost weight but does not know how much. He denies alcohol use. He denies drug use. Review of prior records indicates he has much more problems than he admits to. He has hyperlipidemia, atherosclerotic heart disease status post stent placement, atrial septal aneurysm and CVA. Prior similar symptoms: No Recent Illness/Hospitalization: No [facility] Medical History Abnormal electrocardiogram Atherosclerotic heart disease of [place] coronary artery without angina pectoris Atrial septal aneurysm Chronic back pain CVA (cerebral vascular accident) Heart valve problem Hyperlipidemia Nicotine dependence Seizure Seizure Syncope and collapse Home Medications NK 01/21/21 [History Last Taken Unknown] Allergy/AdvReac Type Severity Reaction Status Date / Time tuberculin, purified protein Allergy Swelling Verified 10/10/20 14:04 deriva bumble bee stings Allergy Severe Anaphylaxis Uncoded 10/10/20 14:04 Family History Mother Myocardial infarction Brother Myocardial infarction Surgical History finger surgery History of lumbar puncture (~04/2017) lymph node resection Stented coronary artery (10/06/17) Social History (Updated 01/21/21 @ 21:[address] Álvaro Hsu MD) household members: family Smoking Status: Current every day smoker tobacco type: cigarettes Tobacco: How many years used: 61 Electronic Cigarette Use: not used second hand exposure: Yes alcohol intake: current alcohol intake frequency: 0-2 drinks per day Alcohol type: hard liquor details: Patient reduced his alcohol intake when 'his lady passed in 2014' substance use type: does not use caffeine: Yes Type: carbonated beverages and coffee ROS ROS ED Constitutional Constitutional ED: Reports weight loss; Denies chills, fever(s), subjective or sweats Eyes Eyes: Reports blurry vision; Denies change in vision or diplopia ENT ENT ED: Denies ear pain, rhinorrhea or sore throat Cardiovascular Cardiovascular: Denies chest pain, orthopnea, palpitations, paroxysmal nocturnal dyspnea or racing heartbeat Respiratory/Chest Respiratory/Chest: Reports cough; Denies dyspnea, dyspnea on exertion, orthopnea, paroxysmal nocturnal dyspnea or sputum Gastrointestinal Gastrointestinal: Reports diarrhea; Denies abdominal pain, constipation, melena, nausea or vomiting Genitourinary Genitourinary ED: Denies dysuria, hematuria or urinary frequency Musculoskeletal Musculoskeletal: Denies arthralgias, back pain, myalgias or neck pain Integumentary Denies rash Neurologic Neurologic: Reports headache(s) and weakness; Denies paresthesias Endocrine Endocrinology: Denies polydipsia, polyphagia or polyuria Allergic/Immunologic Allergic/Immunologic ED: Denies mouth swelling, tongue swelling or urticaria EXAM Physical Exam Const Vital Signs: 01/21/21 20:30 01/21/21 20:43 01/21/21 21:09 Temperature 98.8 F 98.3 F Temperature Source Temporal Oral Pulse Rate 73 73 70 Respiratory Rate 18 14 14 Blood Pressure 134/82 H 149/77 H 131/85 H Blood Pressure Mean 99 101 100 Pulse Ox 98 96 96 Oxygen Delivery Method Room Air Room Air Room Air Positive well nourished and well developed General Appearance ED: well developed and NAD HEENT HEENT Narrative: Atraumatic normocephalic. There is temporal wasting noted bilaterally. TMs normal. Nares patent. Posterior pharynx out erythema or exudate. Uvula midline. Eyes PERRL and EOMs intact bilaterally General Eye ED: Negative for pale conjunctiva or scleral icterus Neck no lymphadenopathy, supple and no JVD Neck Narrative: Trachea is midline. There is no carotid bruits noted. Chest Wall palpation of chest normal Resp normal respiratory effort and clear to auscultation bilaterally Cardio regular rate, regular rhythm, S1 normal heart sound, S2 normal heart sound and no murmurs GI normal to inspection, nondistended, normoactive bowel sounds, non-tender and non-distended Palpation: soft Rectal Exam: other Other Details: There is no palpable pulsatile mass. There is no abdominal bruit. Back/Spine no CVA tenderness Cervical Spine: Negative for cervical spine tenderness Thoracic Spine / Upper Back: Negative for thoracic spinal tenderness or paraspinal muscle tenderness Extremity normal to inspection General Extremety ED: Negative for edema or tenderness General Extremity: Negative for edema Neuro oriented x3, CN's II-XII intact bilaterally and no sensory deficits noted Sensorium / Orientation: alert Motor Exam: strength 5/5 throughout Skin no rashes or lesions noted and no wounds MDM MDM MDM Narrative Medical decision making narrative: There is no temporal artery tenderness. This may represent sinus headache, tension headache possible vascular headache. CT of the head was obtained since patient does not have history of headache and this was associated with syncope. Need to evaluate for subarachnoid hemorrhage. The syncope may be due to diarrhea/hypovolemia and electrode abnormality. EKG was obtained rule out cardiac ischemia. CBC was obtained assess H&H as well as white count. Comprehensive metabolic panel to assess calcium and alk phosphatase for possible metastasis to bone if he has cancer. As well as to assess renal function, anion gap and electrolytes and specifically potassium because of the diarrhea x1 month. If he has hypokalemia will obtain magnesium level. Work-up being essentially unremarkable he was referred to Dr. Gallego for outpatient colonoscopy since he has had diarrhea for 1 month with weight loss. Lashonda states this is his third episode of syncope this month. In light of this with normal work-up will refer to cardiology. Lab Data Attestation: I reviewed the patient's lab results. Lab results narrative: CBC is unremarkable. Patient has a predominant lymphocytosis. Comprehensive metabolic panel is unremarkable. Urinalysis is positive for occult blood. Specific gravity is normal. There is no glucose or ketones noted. Patient's total protein and albumin are low which is consistent with weight loss. Transaminases are normal. Alk phos is normal. Labs: Laboratory Results - last 24 hr 01/21/21 01/21/21 01/21/21 21:00 21:00 21:18 WBC 8.9 RBC 4.72 Hgb 15.1 Hct 45.0 MCV 95.3 H MCH 32.0 MCHC 33.6 RDW Std Deviation 43.7 RDW Coeff of Verito 12.3 Plt Count 293 MPV 9.7 Immature Gran % (Auto) 0.200 Neut % (Auto) 38.8 L Lymph % (Auto) 45.9 H Kleberg % (Auto) 8.3 Eos % (Auto) 6.2 H Baso % (Auto) 0.6 Absolute Neuts (auto) 3.5 Absolute Lymphs (auto) 4.09 Nucleated RBC % 0 Differential Comment SCANNED Sodium 143 Potassium 3.1 L Chloride 112 H Carbon Dioxide 26.0 Anion Gap 5 BUN 8 Creatinine 0.72 Estim Creat Clear Calc 65.27 Est GFR (MDRD) Af Amer 139 Est GFR (MDRD) Non-Af 115 BUN/Creatinine Ratio 11.0 Glucose 90 Calcium 6.8 L Total Bilirubin 0.80 AST 10 L ALT 12 L Alkaline Phosphatase 64 Total Protein 5.3 L Albumin 2.6 L Globulin 2.7 Albumin/Globulin Ratio 1.0 Urine Color Yellow Urine Clarity Clear Urine pH 6.0 Ur Specific [place] 1.015 Urine Protein Negative Urine Glucose (UA) Normal Urine Ketones Negative Urine Occult Blood 25 H Urine Nitrite Negative Urine Bilirubin Negative Urine Urobilinogen Normal Ur Leukocyte Esterase 100 H Radiography Diagnostic Testing: Clinical Impression(s) from Imaging Studies Brain CT 01/21/21 20:56 IMPRESSION: No acute intracranial abnormality. Right parieto-occipital encephalomalacia. Electronically Signed: Lukas Troy MD at 21:41 EDT Tel , Service support , EKG Initial EKG: Attestation: I personally reviewed and interpreted this EKG as follows: Interpretation: Sinus Rhythm (Sinus rhythm with an occasional premature ventricular beat with a ventricular rate of 66. NV intervals 140 ms. QS duration 116 ms. QT duration of 126 ms. Dunbar is to the left.) Discharge Plan Triage Chief Complaint: Headache ED Provider: Álvaro Hsu Dx/Rx/DC Orders Clinical Impression: Syncope and collapse, Diarrhea, Unexplained weight loss, Hypokalemia, Cephalalgia Instructions: ED Diarrhea, Unknown Cause, ED Hypokalemia, ED Pain, Acute, Uncertain Cause, ED Fainting, Uncertain Cause Prescriptions: No Action NK RF: 0 Primary Care Provider: Care Physician,No Primary Referrals: Care Physician,No Primary [Primary Care Provider] -
[2021-01-21 21:09] VITALS: BP 131/85; PULSE 70; RESP 14; O2SAT 96
[2021-01-21 21:10] LABS: Absolute Lymphocyte Count 4.09 X10^3/uL (0.83-4.51); Absolute Neutrophil Count 3.5 X10^3/uL (2.0-7.7); Basophil# 0.05 X10^3/uL; Basophil% 0.6 % (0-1); Eosinophil# 0.55 X10^3/uL; Eosinophils% 6.2 % (0-5); Hemoglobin 15.1 g/dL (13.0-16.5); Lymphocyte # 4.09 X10^3/ul (0.83-4.51); Lymphocyte % 45.9 % (19-41); Mean Corp Hgb Conc 33.6 g/dL (32-36); Mean Corpuscular Volume 95.3 fL (80-94); Mean Platelet Vol. 9.7 fl (6.2-12.0); Monocyte# 0.74 X10^3/uL; Monocyte% 8.3 % (0-10); NRBC Flagged by Analyzer 0 % (0-5); Neutrophil # 3.47 X10^3/uL (2.7-7.7); Neutrophil % 38.8 % (47-70); POSITIVE MORPHOLOGY YES; Platelet Count 293 K/mm3 (150-450); RBC Distribution Width CV 12.3 % (11.6-14.6); RBC Distribution Width SD 43.7 fl (35.1-43.9); Red Blood Count 4.72 M/mm3 (4.6-6.2); White Blood Count 8.9 K/mm3 (4.4-11.0)
[2021-01-21 21:23] LABS: Differential Indicated SCAN CRITERIA MET
[2021-01-21 21:32] LABS: AST(SGOT) 10 U/L (15-37); Alanine Aminotransfer ALT/SGPT 12 U/L (16-61); Albumin, Serum 2.6 g/dL (3.2-5.0); Alkaline Phosphatase 64 U/L (45-117); Anion Gap 5 (5-15); BUN 8 mg/dL (7-18); Calcium,Total 6.8 mg/dL (8.5-10.1); Chloride 112 mmol/L (98-107); Creatinine, Serum 0.72 mg/dL (0.70-1.30); EST Glomerular Filtration Rate 115 mL/min (>60); Est Glom Filt Rate - Afr Amer 139 mL/min (>60); Estimated Creatinine Clearance 65.27 ml/min; Globulin 2.7 g/dL (2.2-4.2); Glucose 90 mg/dL (74-106); Potassium 3.1 mmol/L (3.5-5.1); Protein, Total 5.3 g/dL (6.4-8.2); Sodium Level 143 mmol/L (136-145)
[2021-01-21 21:42] LABS: Glucose, Dipstick Normal (Normal); Ketone-Dipstick Negative (Negative); Leukocyte Esterase-Dipstick 100 /ul (Negative); Nitrite-Dipstick Negative (Negative); Occult Blood-Urine 25 /ul (Negative); Protein-Dipstick Negative (Negative); Specific Gravity, Urine 1.015 (1.002-1.030); Urine Bilirubin Dipstick Negative (Negative); Urine Urobilinogen Normal (Normal)
[2021-01-21 21:43] LABS: Color, Urine Yellow (Yellow); Urine Clarity Clear (Clear)
[2021-01-21 22:01] LABS: Differential Comment SCANNED
[2021-01-21] MEDS: Potassium Chloride Oral Soln 20 MEQ/15 ML UDC 40 MEQ PO (22:27)
[2021-01-21 22:30] VITALS: BP 128/78; PULSE 68; RESP 15; O2SAT 98
== END 2021-01-21 22:42 | disposition home or self-care (01) ==
PROVIDERS: Emergency Provider Emergency Medicine
DX: R55 Syncope and collapse (principal); R19.7 Diarrhea, unspecified; R63.4 Abnormal weight loss; E87.6 Hypokalemia; R51.9 Headache, unspecified; F17.210 Nicotine dependence, cigarettes, uncomplicated; I25.10 Atherosclerotic heart disease of native coronary artery without angina pectoris
CPT/HCPCS: 70450; 80053; 81002; 85025; 93005; 99285; A4216

== ENCOUNTER 2021-04-16 16:45 | Outpatient (CLI) | payer MEDICARE, MEDICAID, SELFPAY ==
[2017-10-06 13:03] VITALS: BMI 22.4
--- NOTE | 2021-04-16 17:00 | RAD_ITS ---
STUDY: X-RAY CHEST REASON FOR EXAM: Male, 65 years old. CP TECHNIQUE: PA and lateral views of the chest. COMPARISON: Comparison is made with prior examination dated 2020. FINDINGS: There is hyperinflation of the lungs consistent with chronic obstructive lung disease (COPD). Decreased bronchovascular markings are seen in both lungs suggestive of emphysematous change. There is no demonstrated pleural abnormality. Normal size heart. Normal mediastinum and mariluz. Normal visualized pulmonary arteries. Normal visualized aortic arch and descending thoracic aorta. Normal visualized thoracic spine. Normal visualized ribs, clavicles, and shoulders. There is no demonstrated abnormality of the visualized soft tissue structures of the upper abdomen. RAD/Chest PA and Lateral IMPRESSION: Hyperinflation. Decreased bronchovascular markings in both lungs suggestive of emphysematous changes. Electronically Signed: Chris Jackson MD at 10:54 EST , Service support ,
== END 2021-04-16 23:59 | disposition short-term general hospital (02) ==
PROVIDERS: Referring Provider Physician Assistant Medical; Visit Provider Physician Assistant Medical
DX: I25.119 Atherosclerotic heart disease of native coronary artery with unspecified angina pectoris (principal); I25.3 Aneurysm of heart; E78.2 Mixed hyperlipidemia
CPT/HCPCS: 71046

== ENCOUNTER 2021-04-25 18:21 | Emergency (ER) | payer MEDICARE, MEDICAID, SELFPAY ==
[2017-10-06 13:03] VITALS: BMI 22.4
[2021-04-25 18:22] VITALS: BP 104/63; PULSE 85; RESP 16; TEMP 36.9; O2SAT 98; BMI 21.4
--- NOTE | 2021-04-25 18:37 | ED.RN ---
pt states that he does not want to be seen. that the [facility] told him because his covid test showed positive in 3 minutes he needed to get another test. pt states that he does not want to be seen that he will just go home and wait it out. i encouraged the pt to be sure to come back if he is feeling sick. explained to the pt multiple times that we will gladly have the dr see him and pt stated he wanted to go home.
== END 2021-04-25 18:44 | disposition left against medical advice (07) ==
LOC: ED 18:43
DX: Z53.21 Procedure and treatment not carried out due to patient leaving prior to being seen by health care provider (principal)

== ENCOUNTER 2021-05-27 06:41 | Day surgery (SDC) | payer MEDICARE, MEDICAID, SELFPAY ==
[2017-10-06 13:03] VITALS: BMI 22.4
[2021-04-17 11:18] LABS: Absolute Lymphocyte Count 3.22 X10^3/uL (0.83-4.51); Absolute Neutrophil Count 4.7 X10^3/uL (2.0-7.7); Basophil# 0.06 X10^3/uL; Basophil% 0.7 % (0-1); Eosinophil# 0.43 X10^3/uL; Eosinophils% 4.7 % (0-5); Hematocrit 42.7 % (40-54); Hemoglobin 14.1 g/dL (13.0-16.5); Lymphocyte # 3.22 X10^3/ul (0.83-4.51); Lymphocyte % 35.3 % (19-41); Mean Corpuscular Hgb 32.2 pg (27.0-32.0); Mean Corpuscular Volume 97.5 fL (80-94); Mean Platelet Vol. 9.1 fl (6.2-12.0); Monocyte# 0.69 X10^3/uL; Monocyte% 7.6 % (0-10); NRBC Flagged by Analyzer 0 % (0-5); Neutrophil # 4.71 X10^3/uL (2.7-7.7); Neutrophil % 51.5 % (47-70); Platelet Count 328 K/mm3 (150-450); RBC Distribution Width CV 12.8 % (11.6-14.6); Red Blood Count 4.38 M/mm3 (4.6-6.2); White Blood Count 9.1 K/mm3 (4.4-11.0)
[2021-04-17 11:33] LABS: International Normalized Ratio 1.1; Prothrombin Time (Protime)PT. 13.3 SECONDS (11.7-14.9)
[2021-04-17 11:34] LABS: Partial Thromboplast Time 30.5 Seconds (24.1-36.2)
[2021-04-17 11:42] LABS: Anion Gap 4 (5-15); BUN 16 mg/dL (7-18); BUN/Creat Ratio 15.5 RATIO (10-20); Calcium,Total 8.2 mg/dL (8.5-10.1); Chloride 102 mmol/L (98-107); Creatinine, Serum 1.03 mg/dL (0.70-1.30); EST Glomerular Filtration Rate 77 mL/min (>60); Est Glom Filt Rate - Afr Amer 93 mL/min (>60); Glucose 122 mg/dL (74-106); Potassium 4.1 mmol/L (3.5-5.1); Sodium Level 137 mmol/L (136-145)
[2021-04-23 07:40] VITALS: BMI 21.4
--- NOTE | 2021-05-26 19:41 | HP.PCM_ITS ---
History and Physical Date of Admission: 05/27/21 [facility] [id number] [place], [place] [phone] OFFICE VISITDate of Service: 04/16/21 MR#:[id number]: RADHA BRENNAN DRe #:[id number] Provider: DEYSI Barreto/Sex: 65/M Loca tion:BMS.FELICITASGStatus:Signed HPI HPI History of Present Illness Surgical H&P: Yes Details: RADHA BRENNAN, is a 65 M who presents to the office today for a cardiovascular outpatient follow-up. He has a history of coronary artery disease status post PTCA/LOPEZ to mid LAD and proximal diagonal in October 2017, mild global LV dysfunction, atrial septal aneurysm, alcohol withdrawal seizure, hyperlipidemia, and tobacco abuse. After last office visit patient underwent a heart catheterization on 03/09/2018 which showed widely patent diagonal and LAD stents, and nonobstructive coronary disease.. Medical management was recommended. Pt notes that over the 2-4 weeks, he has had some chest pain that radiates down to his arm. He has used his NTG. This did help. He has used this 3-4 times last week. He did use it earlier this month also. He feels that his breathing is rough. He finds that it is harder to catch his breath. He needs to stop and try to rest to catch it again. He has not had any irregular heart beats. He does not have any lightheadedness. He does not have any edema. He does tell me he is falling but he thinks it is related to seizures. Unfortunately he is still smoking 2 packs a day. Intake Vital Signs 04/16/21 13:49 Height 5 ft 8 in Weight: 141 lb BMI 21.4 BP 137/78 H Blood Pressure Location Lt brachial Position Sitting Respiration 18 Pulse 76 Pulse Source Monitor Pulse Oximetry (%) 96 Intake Visit Reasons: 6 MO F/U Hand Lens Polisher Required: No Accompanied by: None Is patient in pain?: No Allergies tuberculin, purified protein deriva Allergy (Verified 04/16/21 15:20) Swelling bumble bee stings Allergy (Severe, Uncoded 04/16/21 15:20) Anaphylaxis Medications aspirin 81 mg tablet,delayed release 81 mg PO DAILY #90 tab 04/16/21 [Rx Confirmed 04/16/21] clopidogrel 75 mg tablet 75 mg PO DAILY #90 tab 04/16/21 [Rx Confirmed 04/16/21] isosorbide mononitrate 30 mg tablet,extended release 24 hr 30 mg PO DAILY #90 tab 04/16/21 [Rx Confirmed 04/16/21] lamotrigine 25 mg tablet See Rx Instructions .ROUTE .COMPLEX #0 tab 04/16/21 [Rx Confirmed 04/16/21] nitroglycerin 0.4 mg sublingual tablet 0.4 mg SUBLINGUAL Q5-15M PRN #25 tab 04/16/21 [Rx Confirmed 04/16/21] primidone 50 mg tablet See Rx Instructions .ROUTE .COMPLEX #60 tab 04/16/21 [Rx Confirmed 04/16/21] [facility] Medical History Abnormal electrocardiogram Atherosclerotic heart disease of [place] coronary artery without angina pectoris Atrial septal aneurysm Chronic back pain CVA (cerebral vascular accident) Heart valve problem Hyperlipidemia Nicotine dependence Seizure Seizure Syncope and collapse Surgical History finger surgery History of lumbar puncture (~04/2017) lymph node resection Stented coronary artery (10/06/17) Family History Mother Myocardial infarction Brother Myocardial infarction Social History household members: family Smoking Status: Current every day smoker tobacco type: cigarettes Tobacco: How many years used: 61 Electronic Cigarette Use: not used second hand exposure: Yes alcohol intake: current alcohol intake frequency: 0-2 drinks per day Alcohol type: hard liquor details: Patient reduced his alcohol intake when 'his lady passed in 2014' substance use type: does not use caffeine: Yes Type: carbonated beverages and coffee ROS Const Const: Negative for fatigue, weakness, headache(s), excessive sweating, weight gain or weight loss Eyes Eyes: Negative for blind spots, loss of peripheral vision, transient loss of vision, blurry vision, change in vision or double vision ENT ENT: Negative for headache(s), dizziness, tinnitus, Nosebleed/epistaxis or balance problems Cardio Chest Pain: Yes (see HPI) Palpitations: No Edema: None Muscle aches with walking: None Resp Respiratory: Negative for SOB with activity, SOB at rest, SOB orthopnea\SOB lying down or Cough GI GI: Negative nausea, vomiting, heartburn, bloating, vomiting blood/hematemesis, bright, red blood in stools or black,tarry stools : Negative for hematuria Musc Musc: Negative for muscle aches/ myalgia, muscle weakness, joint pain or balance problems Skin Skin: Negative rash or wounds Neuro Neuro: Positive for seizures; Negative for dizziness, lightheadedness, near syncope, syncope, orthostatic symptoms, headache(s), weakness, confusion, memory loss, restless legs, blurry vision or double vision Aris Hematologic/Lymphatic: Negative for easy bleeding or easy bruising Endo Endo: Negative for fatigue, cold intolerance, heat intolerance or excessive sweating Psych Psych: Negative for anxiety or depression Allergy Allergy/Immunology: Negative for rash Cardiology Exam Const Appearance: cooperative, comfortable, no acute distress and disheveled Nutritional Appearance: thin Orientation: alert, awake and oriented x3 Head Head: normal to inspection Ears: hearing grossly normal bilaterally Nose: external nose normal Face and Sinus: face symmetric Mouth: oral mucosae normal, lip normal and moist mucous membranes Eyes General: appearance normal, both eyes and all related structures Eyelids: eyelids normal Conjunctivae: conjunctivae normal Pupils: PERRL EOM: EOM intact bilaterally Neck Neck: normal visual inspection and trachea midline; Negative no JVD Carotids: Negative bruit Chest Chest inspection: normal inspection of the chest Auscultation: Bilateral: Diminished Lung Sounds Cardio Palpation: normal PMI Rate: regular rate Rhythm: regular rhythm Heart sounds: S1 normal and S2 normal; Negative rub, gallop or murmur GI GI: soft, no hepatosplenomegaly and bowel sounds present Neuro General: patient alert, patient awake, patient oriented x3 and CN's II-XI intact bilaterally Extremities Pulses: Normal: Right Posterior Tibial Pulse, Left Posterior Tibial Pulse, Right Radial Pulse and Left Radial Pulse Lower Extremity Edema: None: Bilateral Psych Psychological: normal affect Supplemental Info Supplemental Information Stress echocardiogram from January 2018 was a normal, adequate, dobutamine echocardiogram. Negative for ischemia by EKG and echocardiographic criteria. No anginal symptoms noted. No arrhythmias noted. Appropriate blood pressure response to dobutamine. Final LVEF is 75%. Test terminated due to the attainment of target heart rate. Pulmonary function test from August 2017 showed partially reversible mild large airway obstructive ventilatory defect with associated hyperinflation and air trapping. Echocardiogram from August 2012 showed normal LV size, apical false tendon noted, ejection fraction 50%, and structurally normal valves. Heart catheterization from March 2018 showed ejection fraction of 65%, LVEDP of 4 mmHg, left main is angiographically normal, previous placed mid LAD stent as patent, proximal previously placed diagonal 2 stent as patent, and mid RCA with 30% stenosis. Labs: LDL Cholesterol 115 mg/dL (0-130) HDL Cholesterol 45 mg/dL (40-) Triglycerides 147 mg/dL (-199) VLDL Cholesterol 29 mg/dL (5-40) Diagnostics: Electrocardiogram Chest X-Ray Pulmonary: No Data to Display Assessment and Plan Assessment and Plan (1) Coronary artery disease with angina pectoris: Status: Acute Orders: Orders: Left Heart Cath/COR/LV Percut 04/16/21 Basic Metabolic Profile (BMP) 04/16/21 Partial Thromboplast Time 04/16/21 Prothrombin Time w/INR 04/16/21 CBC W/Diff, Automated 04/16/21 Chest PA and Lateral 04/16/21 Plan - Debbie JO PA: Patient has symptoms that are concerning for angina. Because his symptoms are relieved by nitroglycerin and he is not on any cardiac medications from his previous stent would like to pursue a diagnostic heart catheterization over a stress test as I do feel that these are true cardiac symptoms. Patient will be scheduled in the near future for a diagnostic heart catheterization. Patient will also be started on Plavix in addition to isosorbide. Patient was advised to proceed to the emergency room if his symptoms have worsened and were not relieved by nitroglycerin. (2) Hyperlipidemia: Status: Chronic Qualifiers: Hyperlipidemia type: mixed hyperlipidemia Qualified Code(s): E78.2 - Mixed hyperlipidemia Orders: Orders: Left Heart Cath/COR/LV Percut 04/16/21 Basic Metabolic Profile (BMP) 04/16/21 Partial Thromboplast Time 04/16/21 Prothrombin Time w/INR 04/16/21 CBC W/Diff, Automated 04/16/21 Chest PA and Lateral 04/16/21 Plan - Debbie M Madison PA, PA: Would like for patient to resume statin medication however will decide this based on his heart catheterization. Will obtain labs. (3) Atrial septal aneurysm: Status: Chronic Orders: Orders: Left Heart Cath/COR/LV Percut 04/16/21 Basic Metabolic Profile (BMP) 04/16/21 Partial Thromboplast Time 04/16/21 Prothrombin Time w/INR 04/16/21 CBC W/Diff, Automated 04/16/21 Chest PA and Lateral 04/16/21 (4) Seizure: Status: Chronic Plan - Debbie JO, PA: Patient is seeing neurology for a seizure disorder. He does note that he does have falling episodes where he feels that he passes out. After his heart catheterization would like to consider a 30-day event monitor to assure that this is not arrhythmia based. Plan Details Other Medications: New: clopidogrel (Plavix) 75 mg PO DAILY 90 tabs 3RF isosorbide mononitrate ER 30 mg PO DAILY 90 tabs 3RF nitroglycerin (Nitrostat) do not exceed 3 doses per episode 0.4 mg sublingual Q5-15M PRN 25 tabs 3RF chest pain aspirin (Adult Aspirin Regimen) 81 mg PO DAILY 90 tabs 3RF Other Orders: Orders: 12 Lead EKG performed by [facility] [place] 04/16/21 R07.9 Left Heart Cath/COR/LV Percut 04/16/21 I25.10 Partial Thromboplast Time 04/16/21 R55 Prothrombin Time w/INR 04/16/21 I25.10 CBC W/Diff, Automated 04/16/21 I25.10 Follow Up: 6 Weeks (MMM) 04/16/21 (Please see if you can scheduled a heart cath for 04/[address] Morin- I tried but call dropped) COVID (Procedure Consent) Procedure Criteria Procedure Criteria: Yes Elective The surgeon/proceduralist and patient have discussed in detail the risk of exposure to and/or potential harm posed by the COVID-19 virus with having a surgery/procedure at this time versus the risk of delaying the surgery/procedure. It is not possible to know either the risk of delaying the surgery or procedure or chance of getting an infection with perfect accuracy, but a joint decision was made between the patient and the surgeon/proceduralist to proceed at this time with the scheduled surgery/procedure as indicated on the consent form. Coding Level of Care Code Off vis,est,level 3 Diagnoses Coronary artery disease with angina pectoris I25.119 Hyperlipidemia E78.2 Hyperlipidemia type: mixed hyperlipidemia Atrial septal aneurysm I25.3 Seizure R56.9 Coding Level of Care Code Off vis,est,level 3 Diagnoses Coronary artery disease with angina pectoris I25.119 Hyperlipidemia E78.2 Hyperlipidemia type: mixed hyperlipidemia Atrial septal aneurysm I25.3 Seizure R56.9 04/17/2124<Electronically signed by Debbie JO>Date ____ Debbie JO Cosigner Signature:Date (if applicable) CC: No Primary Care Physician ~ Addendum: Transthoracic echocardiogram: 09-19-2018 Interpretation Summary Segmental dysfunction with preserved ejection fraction (see wall motion). The estimated ejection fraction is 55 %. There is mild mitral annular calcification. Anterior leaflet diffuse mitral valve thickening. Trivial mitral valve insufficiency. Mild tricuspid valve insufficiency. No evidence for diastolic dysfunction. Assessment & Plan Addt'l Comments I have re-examined the patient. There are no clinical changes since date of exam
--- NOTE | 2021-05-27 08:08 | NURSING ---
Upon admission questions, pt did admit to having thoughts of ending it. Pt states he hasnt had thoughts in a month. He states no plan at this current time, but I know how to do it. He recently had a significant other of 7years pass away recently. He states, I know I can't because of my kids and animals. Dr Morin notified and Social work notified to speak with pt.
--- NOTE | 2021-05-27 08:11 | NURSING ---
[place] social services analyst in room speaking with pt at this time. Dr Morin updated.
--- NOTE | 2021-05-27 08:50 | CASEMGMT ---
Social Work SW received a call from RN in labor economics professor, as pt had indicated he has had thoughts of self harm a month ago, but not at present. Pt also indicated he knew how he would harm himself. He recently lost his significant other in April and indicated that this is what is causing some of the distress. SW introduced self, explained to pt came to see pt as RN concerned about comments he made when speaking w/her. Pt confirms lost his significant other Edilma in April. He lost a prior significant other, Anitra, in 2014 and lost his first in 1984. He states that I don't know how much more I can take. He further elaborated later that he doesn't know how he would take another loss. Pt also during conversation spoke about stress of his roommate, who is a user. 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 Pt states he is using, and he has stolen his tools, broke his safe. Pt visibly was shaking when speaking about this roommate. Pt does not feel unsafe at home, but this indivual's presence is causing stress. Pt also spoke about another loss of a friend in the summer. Support offered and SW acknowledged the loss pt has experienced. SW asked pt about thoughts right not of wanting to kill himself, pt denies. Pt does state he felt this way a month ago. SW asked pt if he had a plan, pt states he has many ways he could do it. When asked, he did not want to tell SW, as it makes it too real. Pt does deny having any firearms in the home. Pt states he has swords, but they are for decoration and are hanging up on the wall. Some other swords are at is son in law's home. SW spoke w/pt about what helps keep him going. Pt states his family, has some step children and a son. He also spoke a lot about his two dogs, Sveta and Doxie. Pt states that they are very supportive to him, and is looking forward to getting the dogs back from his son in law later and being home with them. He states his dogs are truly what keep him going and keep him wanting to live. He explained that he and Anitra got the dogs--they got Sveta first who immediately became his dog. They then got Doxie 6 months later for Anitra. 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 He states he has a lot of people he works with who help him with this. Pt also explained strips copper at home, and can do this if stressed and it helps. SW and pt together created a crisis plan. SW encouraged pt to reach out to family in times of difficulty. Pt states does not like to burden others. SW pointed out to pt that family would rather hear from him when he is stressed than hear that he hurt himself. Pt able to acknowledge this. SW also gave pt the [facility] Crisis number. Pt again states he would not want to call, as he does not like to burden others. SW again pointed out to pt that the crisis unit is there for exactly this reason, to help him through crises. SW spoke w/pt about medication. Pt is not taking any meds for anxiety or depression. SW encouraged pt to speak w/his doctor about this, as it may be helpful. SW spoke w/pt about counseling, pt is not interested. SW did give him a list of counseling options anyway, included hospice as well for bereavement counseling. SW asked pt if he will be safe when he goes home, if he will harm himself. Pt states no, he plans to just go spanish moss picker his dogs and go home, and if able will return to work tomorrow. No further needs at this time. Pt denying suicidality at this time, crisis plan created, numbers given for counseling, crisis, and bereavement counseling with hospice. SW informed MASTER. ADRIANNA Zuluaga
--- NOTE | 2021-05-27 10:36 | CASEMGMT ---
According to the [facility] website, the following are in-network tertiary facilities: [facility], [facility], [facility], [facility], [facility], [facility], [facility], [facility], and . Shelley THAO CM
--- NOTE | 2021-05-27 10:43 | CL.D_ITS ---
Patient Name: RADHA BRENNAN Study Date: 05/27/2021 Performing: Zaki Morin MD Ht: 68.11 inches 173 cm : 1955 Wt: 141.1 lbs 64 kg Age: 65 Gender: male BSA: 1.76 PROCEDURE(S) PERFORMED [id number])LHC/COR/LV CLINICAL PROFILE AND INDICATIONS Indications: Suspected CAD Heart Failure: None Stress/Imaging Stress/Image Study Performed: No Angina Classification Anginal Classification w/in 2 Weeks: CCS III CAD Presentations: Other: worsening angina CONCLUSIONS Elevated Left Ventricular End Diastolic Pressure Normal LV size, wall motion,and systolic function LVEF: by LV gram 65 % [place] Multivessel CAD Comment: 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 Contreras of Interventional Cardiology DESCRIPTION OF PROCEDURE The patient arrived to the procedure lab. The risks and benefits of the procedure as well as a full d escription of our services here and current unavailability of surgical backup were fully explained to the patient and/or their significant other prior to the catheterization. The Timeout was completed, verifying the correct patient and procedure. The patient's procedural site was prepped and draped in the usual fashion. Local anesthetic was given subcutaneously to right radial region with Lidocaine 2% . Using a modified Seldinger technique, arterial access was obtained via the right radial artery, a 6 Fr sheath was inserted. Left Coronary Artery selective angiography was performed in multiple views u sing a 5 Fr. 4.0 [place] catheter. Right Coronary Artery selective angiography was then performed in mu ltiple views using a 5 Fr. 4.0 [place] catheter. Left Ventriculography was performed in AGUILAR projection using a 5 Fr. [place] catheter. LV to AO pullback pressures were then recorded.The arterial sheath was pulled and a TR Band was applied for hemostasis-9 cc air CORONARY ANGIOGRAPHY DOMINANCE: Right Dominant LEFT HEART ASSESSMENT Left Ventricular Ejection Fraction: by LV Gram 65 % Normal LV wall motion Elevated Left Ventricular End Diastolic Pressure LVEDP: 18 mmHg LEFT MAIN: Angiographically normal LEFT ANTERIOR DESCENDING ARTERY: PROX LAD: Mild luminal irregularities, near the origin of the stent: eccentric: 75 % Stenosis MID LAD: Previously placed stent is patent DIAGONAL 1: Ostial - large vessel: ostial: jailed by the stent / subtotally occluded DIAGONAL 2: Proximal - Previously placed stent is patent CIRCUMFLEX ARTERY: Angiographically normal RIGHT CORONARY ARTERY: Mild luminal irregularities AORTIC ROOT: Angiographically normal COMPLICATIONS No Complications PROCEDURE MEDICATIONS Fentanyl 50 mcg IV Versed 1 mg IV Oxygen: 2 L/min via nasal cannula Heparin given IA 05/27/2021 10:09:35 Verapamil 2.5mg, Ntg 100mcgs, 3000 units of Heparin given IA 05/27/2021 10:09:35 SUMMARY OF HEMODYNAMIC DATA Time AIR REST ECG 07:18:10 Art 124/59 (77) 10:06:07 AO 83/57 (69) SA 10:11:27 LV 116/0, 19 10:17:37 LV 109/0, 18 10:17:43 LV 104/0, 18 10:18:41 LV 104/1, 19 10:18:47 LVp 105/1, 17 10:18:51 AOp 115/63 (84) 10:18:56 RM AIR REST 10:33:19 Signed By Zaki Morin MD On 05/27/2021 10:42:00 AM Zaki Morin MD
== END 2021-05-27 23:59 | disposition home or self-care (01) ==
PROVIDERS: Physician Assistant Medical; Referring Provider Internal Medicine Cardiovascular Disease; Visit Provider Internal Medicine Cardiovascular Disease
DX: I25.119 Atherosclerotic heart disease of native coronary artery with unspecified angina pectoris (principal); E78.5 Hyperlipidemia, unspecified; F17.210 Nicotine dependence, cigarettes, uncomplicated; G89.29 Other chronic pain; M54.9 Dorsalgia, unspecified; Z95.5 Presence of coronary angioplasty implant and graft; R07.9 Chest pain, unspecified
CPT/HCPCS: 36415; 80048; 85025; 85610; 85730; 93458; 99152; 99153; J7040; C1769; C1894; Q9967

== ENCOUNTER 2021-06-29 10:10 | Emergency (ER) | payer MEDICARE, MEDICAID, SELFPAY ==
[2017-10-06 13:03] VITALS: BMI 22.4
[2021-06-29 10:12] VITALS: BP 151/93; PULSE 168; RESP 14; TEMP 35.7; BMI 21.1
--- NOTE | 2021-06-29 10:21 | EDS_ITS ---
HPI History of Present Illness Chief Complaint: Dizziness Informant: patient Onset/Context/Timing Onset: Days (4) Context: Sudden Onset Timing: Continuous Quality: Off balance Location: Generalized Worsened by: Nothing Relieved by: Nothing Narrative Narrative: Patient presents with dizziness that has been constant for the past 4 days. Patient states it began rather suddenly. Patient states he feels off balance. Patient states that he feels like he is going to fall to the side when here where he walks. Patient states nothing makes it better nothing makes it worse. Patient admits to some palpitations with this. Patient denies any nausea or vomiting. Patient denies any shortness of breath or cough. Patient denies any tinnitus or hearing changes. [facility] Medical History Abnormal electrocardiogram Atherosclerotic heart disease of [place] coronary artery without angina pectoris Atrial septal aneurysm Chronic back pain CVA (cerebral vascular accident) Heart valve problem History of left heart catheterization (LHC) (~05/27/21) Hyperlipidemia Nicotine dependence Seizure Seizure Syncope and collapse Home Medications aspirin 81 mg tablet,delayed release 81 mg PO DAILY #90 tab 04/16/21 [Rx Last Taken 05/27/21] clopidogrel 75 mg tablet 75 mg PO DAILY #90 tab 04/16/21 [Rx Last Taken 05/27/21] isosorbide mononitrate 30 mg tablet,extended release 24 hr 30 mg PO DAILY #90 tab 04/16/21 [Rx Last Taken 05/27/21] atorvastatin 40 mg tablet 40 mg PO QHS #30 tab 05/27/21 [Rx Last Taken Unknown] metoprolol succinate 25 mg tablet,extended release 24 hr 25 mg PO DAILY #90 tab 06/02/21 [Rx Last Taken Unknown] nitroglycerin 0.4 mg sublingual tablet 0.4 mg SUBLINGUAL Q5-15M PRN #25 tab 06/02/21 [Rx Last Taken Unknown] lamotrigine 25 mg tablet 50 mg PO BID #120 tab 06/15/21 [Rx Last Taken Unknown] primidone 50 mg tablet 75 mg PO BID #90 tab 06/15/21 [Rx Last Taken Unknown] meclizine 25 mg PO Q8H PRN PRN #20 tab 06/29/21 [Rx Last Taken Unknown] oxcarbazepine 06/29/21 [History Last Taken Unknown] Allergy/AdvReac Type Severity Reaction Status Date / Time tuberculin, purified protein Allergy Swelling Verified 06/29/21 10:12 deriva bumble bee stings Allergy Severe Anaphylaxis Uncoded 06/29/21 10:12 Family History Mother Myocardial infarction Brother Myocardial infarction Surgical History finger surgery History of lumbar puncture (~04/2017) lymph node resection Stented coronary artery (10/06/17) Social History household members: family Smoking Status: Current every day smoker tobacco type: cigarettes Tobacco: How many years used: 61 Electronic Cigarette Use: not used second hand exposure: Yes alcohol intake: current alcohol intake frequency: 0-2 drinks per day Alcohol type: hard liquor details: Patient reduced his alcohol intake when 'his lady passed in 2014' substance use type: does not use caffeine: Yes Type: carbonated beverages and coffee ROS ROS ED Constitutional Constitutional ED: Reports chills and subjective; Denies fever(s) Eyes Eyes: Denies blurry vision or change in vision ENT ENT ED: Reports rhinorrhea; Denies sore throat Cardiovascular Cardiovascular: Reports palpitations; Denies chest pain Respiratory/Chest Respiratory/Chest: Denies cough or dyspnea Gastrointestinal Gastrointestinal: Denies nausea or vomiting Genitourinary Genitourinary ED: Denies dysuria or hematuria Musculoskeletal Musculoskeletal: Reports neck pain; Denies back pain Integumentary Denies abscess or rash Neurologic Neurologic: Denies headache(s) or weakness Allergic/Immunologic Allergic/Immunologic ED: Denies mouth swelling or urticaria EXAM Physical Exam Const Vital Signs: 06/29/21 10:12 06/29/21 10:33 06/29/21 10:41 Temperature 96.2 F L Temperature Source Temporal Pulse Rate 168 H Pulse Rate [Lying] 70 Pulse Rate [Sitting (for 1 minute prior to obtaining)] 69 Pulse Rate [Standing (for 1 minute prior to obtaining)] 66 Respiratory Rate 14 Respiratory Pattern Normal Blood Pressure 151/93 H Blood Pressure [Lying] 163/95 H Blood Pressure [Sitting (for 1 minute prior to obtaining)] 130/78 H Blood Pressure [Standing (for 1 minute prior to obtaining)] 135/70 H Blood Pressure Mean 112 Blood Pressure Mean [Lying] 117 Blood Pressure Mean [Sitting (for 1 minute prior to obtaining)] 95 Blood Pressure Mean [Standing (for 1 minute prior to obtaining)] 91 Pulse Ox Oxygen Delivery Method 06/29/21 11:21 Temperature Temperature Source Pulse Rate 61 Pulse Rate [Lying] Pulse Rate [Sitting (for 1 minute prior to obtaining)] Pulse Rate [Standing (for 1 minute prior to obtaining)] Respiratory Rate 18 Respiratory Pattern Blood Pressure 126/85 H Blood Pressure [Lying] Blood Pressure [Sitting (for 1 minute prior to obtaining)] Blood Pressure [Standing (for 1 minute prior to obtaining)] Blood Pressure Mean 98 Blood Pressure Mean [Lying] Blood Pressure Mean [Sitting (for 1 minute prior to obtaining)] Blood Pressure Mean [Standing (for 1 minute prior to obtaining)] Pulse Ox 96 Oxygen Delivery Method Room Air Positive well nourished and well developed General Appearance ED: well developed and NAD HEENT Reports moist mucous membranes Neck supple and no JVD Resp normal respiratory effort and clear to auscultation bilaterally Cardio regular rate and regular rhythm GI normal to inspection, nondistended, normoactive bowel sounds and non-tender Palpation: soft Neuro oriented x3, CN's II-XII intact bilaterally and no sensory deficits noted Sensorium / Orientation: alert Motor Exam: strength 5/5 throughout Psych mental status grossly normal MDM MDM MDM Narrative Medical decision making narrative: EKG was obtained. On my interpretation, it showed a normal sinus rhythm with a rate of 87. ID interval, QRS interval, and QTc intervals were all normal. There is left axis deviation -55. There are no nonspecific ST-T wave changes. However, there is motion artifact noted as well. CBC was essentially within normal limits. Comprehensive metabolic profile was within normal limits. High-sensitivity troponin was normal. CT scan of the brain was obtained. There is no acute intracranial abnormality. There are chronic involutional changes noted. This was interpreted by the radiologist and reviewed by myself. Portable 1 view chest x-ray was obtained. On my interpretation, lung pineda are clear. There is normal cardiac silhouette. Bony thorax is normal. There is no acute process noted. Radiologist also interpreted the x-ray and agrees. Orthostatic vital signs were obtained. Patient's blood pressure did drop with standing and he experienced some dizziness with this. Because of this, patient was given IV fluids. Patient feels better on reevaluation. Patient was able to ambulate to the bathroom and back without difficulty. Patient was advised of his findings. Patient was instructed to drink plenty of fluids. Patient was instructed to follow-up with his primary care physician in 5 to 7 days. Patient was given a prescription for meclizine to take as needed. Patient understood and was agreeable with the plan. All questions were answered. Lab Data Attestation: I reviewed the patient's lab results. Labs: Laboratory Results - last 24 hr 06/29/21 06/29/21 10:40 10:40 WBC 9.2 RBC 4.23 L Hgb 13.7 Hct 40.4 MCV 95.5 H MCH 32.4 H MCHC 33.9 RDW Std Deviation 45.0 H RDW Coeff of Verito 12.7 Plt Count 289 MPV 9.2 Immature Gran % (Auto) 0.200 Neut % (Auto) 45.8 L Lymph % (Auto) 36.6 Barren % (Auto) 8.3 Eos % (Auto) 8.7 H Baso % (Auto) 0.4 Absolute Neuts (auto) 4.2 Absolute Lymphs (auto) 3.36 Nucleated RBC % 0 Sodium 139 Potassium 3.7 Chloride 103 Carbon Dioxide 29.0 Anion Gap 7 BUN 10 Creatinine 1.06 Estim Creat Clear Calc 61.13 Est GFR (MDRD) Af Amer 90 Est GFR (MDRD) Non-Af 74 BUN/Creatinine Ratio 9.4 L Glucose 111 H Calcium 8.4 L Total Bilirubin 0.70 AST 11 L ALT 17 Alkaline Phosphatase 92 Troponin I High Sens < 3 L Total Protein 6.5 Albumin 3.3 Globulin 3.2 Albumin/Globulin Ratio 1.0 Radiography Diagnostic Testing: Clinical Impression(s) from Imaging Studies Brain CT 06/29/21 10:24 IMPRESSION: Chronic involutional changes of the brain. Stable encephalomalacia in the posterior right parietal occipital lobes. Electronically Signed: Chris Jackson MD at 11:03 EDT , Chest X-Ray 06/29/21 10:24 IMPRESSION: Hyperinflation. Electronically Signed: Chris Jackson MD at 11:49 EDT , EKG Initial EKG: Attestation: I personally reviewed and interpreted this EKG as follows: Interpretation: Sinus Rhythm (67) and Non-Specific ST Changes Comments: Motion artifact Prior EKG tracings: available for review Prior: Unchanged (06/02/2021) Discharge Plan Triage Chief Complaint: Dizziness ED Provider: Clement Walls Dx/Rx/DC Orders Clinical Impression: Dizziness of unknown etiology, Orthostatic hypotension Instructions: ED Dizziness, Uncertain Cause Prescriptions: New meclizine 25 MG tablet 25 mg PO Q8H PRN PRN (Reason: Dizziness) Qty: 20 RF: 0 No Action clopidogrel [Plavix] 75 mg tablet 75 mg PO DAILY Qty: 90 RF: 3 isosorbide mononitrate 30 mg tablet extended release 24 hr 30 mg PO DAILY Qty: 90 RF: 3 aspirin [Adult Aspirin Regimen] 81 mg tablet,delayed release (DR/EC) 81 mg PO DAILY Qty: 90 RF: 3 nitroglycerin [Nitrostat] 0.4 mg tablet, sublingual 0.4 mg sublingual Q5-15M PRN (Reason: chest pain) Qty: 25 RF: 3 metoprolol succinate 25 mg tablet extended release 24 hr 25 mg PO DAILY Qty: 90 RF: 4 lamotrigine 25 mg tablet 50 mg PO BID Qty: 120 RF: 2 primidone 50 mg tablet 75 mg PO BID Qty: 90 RF: 2 oxcarbazepine 300 mg tablet RF: 0 atorvastatin 40 mg tablet 40 mg PO QHS Qty: 30 RF: 12 Primary Care Provider: Care Physician,No Primary Referrals: Judith Matthews MD [STAFF PHYSICIAN] - 3-5 Days Care Physician,No Primary [Primary Care Provider] - Disposition Disposition: Home, Self Care
--- NOTE | 2021-06-29 10:24 | RAD_ITS ---
STUDY: X-RAY CHEST REASON FOR EXAM: Male, 65 years old. Cough TECHNIQUE: Single AP portable view of the chest. COMPARISON: Comparison is made with prior study dated 04/16/2021. FINDINGS: EKG electrodes are seen. There is hyperinflation of the lungs consistent with chronic obstructive lung disease (COPD). There is no demonstrated pleural abnormality. Normal size heart. Normal mediastinum and mariluz. Normal visualized pulmonary arteries. Normal visualized aortic arch and descending thoracic aorta. Normal visualized thoracic spine. Normal visualized ribs, clavicles, and shoulders. There is no demonstrated abnormality of the visualized soft tissue structures of the upper abdomen. RAD/Chest 1 View (Portable) IMPRESSION: Hyperinflation. Electronically Signed: Chris Jackson MD at 11:49 EDT ,
--- NOTE | 2021-06-29 10:24 | CT_ITS ---
STUDY: CT BRAIN WITHOUT CONTRAST REASON FOR EXAM: Male, 65 years old. Headache RADIATION DOSAGE (If Supplied By Facility): CTDIvol = ( 44.99 ) mGy, DLP = ( 796.11 ) mGycm TECHNIQUE: Transaxial CT imaging of the brain was performed without administration of intravenous contrast material. Individualized dose optimization techniques were used for this CT. COMPARISON: Comparison is made with prior study 01/21/2021. FINDINGS: Normal soft tissue structures. Normal calvarium. There is mild cerebral atrophy with widening of the extra-axial spaces and ventricular dilatation. Stable encephalomalacia in the posterior right parietal occipital lobe. Normal basal ganglia and thalami. Normal brainstem. Normal cerebellum. There is no intracranial hemorrhage. There are no findings of an acute ischemic infarction. Atherosclerotic calcification of the cavernous portions of the internal carotid arteries bilaterally. Normal visualized paranasal sinuses. CT/Brain/Head without Contrast IMPRESSION: Chronic involutional changes of the brain. Stable encephalomalacia in the posterior right parietal occipital lobes. Electronically Signed: Chris Jackson MD at 11:03 EDT ,
--- NOTE | 2021-06-29 10:25 | EKG12_ITS ---
Test Reason : DIZZNESS Blood Pressure : / mmHG Vent. Rate : 067 BPM Atrial Rate : 067 BPM P-R Int : 172 ms QRS Dur : 088 ms QT Int : 416 ms P-R-T Axes : 067 -55 019 degrees QTc Int : 439 ms Normal sinus rhythm Left axis deviation Nonspecific T wave abnormality Abnormal ECG When compared with ECG of 21-JAN-2021 20:47, Current undetermined rhythm precludes rhythm comparison, needs review Nonspecific T wave abnormality now evident in Inferior leads Confirmed by HAL HYLTON MD ([id number]), business editor COREEN BOYER ([id number]) on 07/02/2021 7:47:40 AM Referred By: DELMI Confirmed By:HAL HYLTON MD
[2021-06-29 10:41] VITALS: BP 130/78; BP 135/70; BP 163/95; PULSE 66; PULSE 69; PULSE 70
[2021-06-29 10:53] LABS: Absolute Lymphocyte Count 3.36 X10^3/uL (0.83-4.51); Absolute Neutrophil Count 4.2 X10^3/uL (2.0-7.7); Basophil# 0.04 X10^3/uL; Basophil% 0.4 % (0-1); Eosinophils% 8.7 % (0-5); Hematocrit 40.4 % (40-54); Hemoglobin 13.7 g/dL (13.0-16.5); Lymphocyte # 3.36 X10^3/ul (0.83-4.51); Lymphocyte % 36.6 % (19-41); Mean Corp Hgb Conc 33.9 g/dL (32-36); Mean Corpuscular Hgb 32.4 pg (27.0-32.0); Mean Corpuscular Volume 95.5 fL (80-94); Mean Platelet Vol. 9.2 fl (6.2-12.0); Monocyte# 0.76 X10^3/uL; Monocyte% 8.3 % (0-10); NRBC Flagged by Analyzer 0 % (0-5); Neutrophil # 4.21 X10^3/uL (2.7-7.7); Neutrophil % 45.8 % (47-70); Platelet Count 289 K/mm3 (150-450); RBC Distribution Width CV 12.7 % (11.6-14.6); Red Blood Count 4.23 M/mm3 (4.6-6.2); White Blood Count 9.2 K/mm3 (4.4-11.0)
[2021-06-29] MEDS: Meclizine HCl 25 MG Tablet PO (11:04)
[2021-06-29 11:12] LABS: AST(SGOT) 11 U/L (15-37); Alanine Aminotransfer ALT/SGPT 17 U/L (16-61); Albumin, Serum 3.3 g/dL (3.2-5.0); Alkaline Phosphatase 92 U/L (45-117); Anion Gap 7 (5-15); BUN 10 mg/dL (7-18); BUN/Creat Ratio 9.4 RATIO (10-20); Calcium,Total 8.4 mg/dL (8.5-10.1); Chloride 103 mmol/L (98-107); Creatinine, Serum 1.06 mg/dL (0.70-1.30); EST Glomerular Filtration Rate 74 mL/min (>60); Est Glom Filt Rate - Afr Amer 90 mL/min (>60); Estimated Creatinine Clearance 61.13 ml/min; Globulin 3.2 g/dL (2.2-4.2); Glucose 111 mg/dL (74-106); Potassium 3.7 mmol/L (3.5-5.1); Protein, Total 6.5 g/dL (6.4-8.2); Sodium Level 139 mmol/L (136-145); Troponin-I HS < 3 pg/mL (3.0-78.0)
[2021-06-29] MEDS: 0.9% Normal Saline 1,000 ML 1000 ML IV (11:20)
[2021-06-29 11:21] VITALS: BP 126/85; PULSE 61; RESP 18; O2SAT 96
--- NOTE | 2021-06-29 11:54 | CM.ED ---
SW Note Referral Source: Case Find Referral Reason: No Primary Care Physician (PCP) SW reviewed chart and noted that patient has no PCP. SW provided patient with list of [facility] Physician List for reference. SW also provided patient with handout ?Where to go When?. No other issues or concerns voiced at this time. SW remains available for any additional needs. Plan: Provided patient with PCP information Dawna FORTUNE
[2021-06-29 12:59] VITALS: BP 108/75; PULSE 56; O2SAT 98
== END 2021-06-29 13:07 | disposition home or self-care (01) ==
PROVIDERS: Emergency Provider Emergency Medicine; Visit Provider Emergency Medicine
DX: I95.1 Orthostatic hypotension (principal); F17.210 Nicotine dependence, cigarettes, uncomplicated; I25.10 Atherosclerotic heart disease of native coronary artery without angina pectoris; M54.9 Dorsalgia, unspecified; R00.2 Palpitations; E78.5 Hyperlipidemia, unspecified; R42 Dizziness and giddiness; G89.29 Other chronic pain; Z86.73 Personal history of transient ischemic attack (TIA), and cerebral infarction without residual deficits
CPT/HCPCS: 70450; 71045; 80053; 84484; 85025; 93005; 96360; 99285; J7030; A4216

== ENCOUNTER 2021-07-04 18:37 | Emergency (ER) | payer MEDICARE, MEDICAID, SELFPAY ==
[2017-10-06 13:03] VITALS: BMI 22.4
[2021-07-04 18:39] VITALS: BP 113/65; PULSE 69; RESP 18; TEMP 36.2; O2SAT 99; BMI 19.5
--- NOTE | 2021-07-04 18:50 | CT_ITS ---
EXAM: CT ABDOMEN AND PELVIS WITHOUT INTRAVENOUS CONTRAST CLINICAL INDICATION: flank pain TECHNIQUE: Helically acquired images were obtained of the abdomen and pelvis without intravenous contrast. CTDIvol = ( 6.04 ) mGy, DLP = ( 302.02 ) mGycm This CT exam was performed using one or more of the following dose reduction techniques: automated exposure control, adjustment of the mA and/or kV according to patient size, and/or use of iterative reconstruction technique. This report was created using FITiST report generation technology. COMPARISON: None. FINDINGS: LOWER THORAX: Unremarkable. Lung bases are clear. No cardiomegaly. No significant pericardial effusion. ABDOMEN: LIVER: Unremarkable. Homogeneous. GALLBLADDER AND BILE DUCTS: Unremarkable. No calcified gallstones. No gallbladder distention or wall edema. No intra- or extrahepatic biliary ductal dilation. PANCREAS: Unremarkable. No focal cystic mass. SPLEEN: Small calcified granulomas of the spleen. ADRENALS: Unremarkable. No nodules. KIDNEYS AND URETERS: Unremarkable. Normal renal size and position. No hydronephrosis. STOMACH AND BOWEL: Scattered stool throughout the colon. No bowel obstruction. No colitis or diverticulitis. PELVIS: APPENDIX: No evidence of acute appendicitis. BLADDER: Unremarkable. REPRODUCTIVE: Unremarkable as visualized. No mass. ABDOMEN and PELVIS: INTRAPERITONEAL SPACE: Unremarkable. No ascites or other fluid collection. No free air. BONES/JOINTS: Unremarkable. No suspicious lytic or blastic abnormality. SOFT TISSUES: Unremarkable. No discrete abdominal or pelvic wall hernia. VASCULATURE: Unremarkable. Abdominal aorta is non-dilated. LYMPH NODES: Unremarkable. No enlarged lymph nodes. CT/Abdomen/Pelvis without Cont IMPRESSION: No acute or inflammatory disease or bowel obstruction. Electronically Signed: Lele Qiu MD at 20:02 EDT ,
--- NOTE | 2021-07-04 18:50 | EX.ED.DYSGE1 ---
HPI History of Present Illness Chief Complaint: Fall Informant: patient Onset/Context/Timing Onset: Today Context: Gradual Onset Current Severity: Moderate Maximum Severity: Severe Narrative Narrative: Patient presents secondary to right-sided back pain. He states he fell backwards on a propane tank approximately 9 hours prior to arrival. He said increasing right-sided back pain since that time. He denies any hematuria. No pain rating down his legs. He has not taken anything for pain. [facility] Medical History Abnormal electrocardiogram Atherosclerotic heart disease of [place] coronary artery without angina pectoris Atrial septal aneurysm Chronic back pain CVA (cerebral vascular accident) Heart valve problem History of left heart catheterization (LHC) (~05/27/21) Hyperlipidemia Nicotine dependence Seizure Syncope and collapse Home Medications aspirin 81 mg tablet,delayed release 81 mg PO DAILY #90 tab 04/16/21 [Rx Last Taken 05/27/21] clopidogrel 75 mg tablet 75 mg PO DAILY #90 tab 04/16/21 [Rx Last Taken 05/27/21] isosorbide mononitrate 30 mg tablet,extended release 24 hr 30 mg PO DAILY #90 tab 04/16/21 [Rx Last Taken 05/27/21] atorvastatin 40 mg tablet 40 mg PO QHS #30 tab 05/27/21 [Rx Last Taken Unknown] metoprolol succinate 25 mg tablet,extended release 24 hr 25 mg PO DAILY #90 tab 06/02/21 [Rx Last Taken Unknown] nitroglycerin 0.4 mg sublingual tablet 0.4 mg SUBLINGUAL Q5-15M PRN #25 tab 06/02/21 [Rx Last Taken Unknown] lamotrigine 25 mg tablet 50 mg PO BID #120 tab 06/15/21 [Rx Last Taken Unknown] primidone 50 mg tablet 75 mg PO BID #90 tab 06/15/21 [Rx Last Taken Unknown] meclizine 25 mg PO Q8H PRN PRN #20 tab 06/29/21 [Rx Last Taken Unknown] oxcarbazepine 06/29/21 [History Last Taken Unknown] hydrocodone-acetaminophen 1 tab PO Q6H PRN 3 Days #10 tab 07/04/21 [Rx Last Taken Unknown] lidocaine [Lidoderm] 1 patch TOPICAL DAILY #6 ea 07/04/21 [Rx Last Taken Unknown] Allergy/AdvReac Type Severity Reaction Status Date / Time tuberculin, purified protein Allergy Swelling Verified 07/04/21 18:38 deriva bumble bee stings Allergy Severe Anaphylaxis Uncoded 07/04/21 18:38 Family History Mother Myocardial infarction Brother Myocardial infarction Surgical History finger surgery History of lumbar puncture (~04/2017) lymph node resection Stented coronary artery (10/06/17) Social History household members: family Smoking Status: Current every day smoker tobacco type: cigarettes Tobacco: How many years used: 61 Electronic Cigarette Use: not used second hand exposure: Yes alcohol intake: current alcohol intake frequency: 0-2 drinks per day Alcohol type: hard liquor details: Patient reduced his alcohol intake when 'his lady passed in 2014' substance use type: does not use caffeine: Yes Type: carbonated beverages and coffee ROS ROS ED Constitutional Constitutional ED: Denies chills or fever(s) Eyes Eyes: Denies change in vision ENT ENT ED: Denies sore throat Cardiovascular Cardiovascular: Denies chest pain Respiratory/Chest Respiratory/Chest: Denies cough or dyspnea Gastrointestinal Gastrointestinal: Denies abdominal pain, diarrhea, nausea or vomiting Genitourinary Genitourinary ED: Denies dysuria or hematuria Musculoskeletal Musculoskeletal: Reports back pain Integumentary Denies rash Neurologic Neurologic: Denies headache(s), paresthesias or weakness Allergic/Immunologic Allergic/Immunologic ED: Denies urticaria EXAM Physical Exam Const Vital Signs: 07/04/21 18:39 07/04/21 18:57 07/04/21 20:37 Temperature 97.2 F L Temperature Source Temporal Pulse Rate 69 79 Respiratory Rate 18 18 Respiratory Effort Normal Non-Labored Respiratory Depth Normal Respiratory Pattern Normal Blood Pressure 113/65 Blood Pressure Mean 81 Pulse Ox 99 96 Oxygen Delivery Method Room Air Positive well nourished and well developed General Appearance ED: well developed HEENT Reports moist mucous membranes Eyes PERRL and EOMs intact bilaterally Neck supple Chest Wall inspection of chest normal and palpation of chest normal Resp normal respiratory effort and clear to auscultation bilaterally Cardio regular rate and regular rhythm GI normal to inspection, nondistended, normoactive bowel sounds and non-tender Palpation: soft Back/Spine Back/Spine Narrative: Right lumbar paraspinal tenderness. No overlying erythema or abrasions. Extremity normal to inspection Neuro oriented x3 Sensorium / Orientation: alert Psych mental status grossly normal Skin no rashes or lesions noted MDM MDM MDM Narrative Medical decision making narrative: Patient is driving himself. He was given a Lidoderm patch and Tylenol. CT flank obtained. Radiography Diagnostic Testing: Clinical Impression(s) from Imaging Studies Abdomen/Pelvis CT 07/04/21 18:50 IMPRESSION: No acute or inflammatory disease or bowel obstruction. Electronically Signed: Lele Qiu MD at 20:02 EDT , Treatment and Re-Evaluation Narrative: CT scan reveals no acute injury. Patient reassured with these findings. He will be given prescription for [place] and Lidoderm patches. Discharge Plan Triage Chief Complaint: Fall ED Provider: Nina Palacio Dx/Rx/DC Orders Clinical Impression: Back contusion Instructions: ED Back Contusion Prescriptions: New hydrocodone-acetaminophen 5-325 mg tablet 1 tab PO Q6H PRN (Reason: pain) 3 Days Qty: 10 RF: 0 lidocaine [Lidoderm] 5 % adhesive patch,medicated 1 patch topical DAILY Qty: 6 RF: 0 No Action clopidogrel [Plavix] 75 mg tablet 75 mg PO DAILY Qty: 90 RF: 3 isosorbide mononitrate 30 mg tablet extended release 24 hr 30 mg PO DAILY Qty: 90 RF: 3 aspirin [Adult Aspirin Regimen] 81 mg tablet,delayed release (DR/EC) 81 mg PO DAILY Qty: 90 RF: 3 nitroglycerin [Nitrostat] 0.4 mg tablet, sublingual 0.4 mg sublingual Q5-15M PRN (Reason: chest pain) Qty: 25 RF: 3 metoprolol succinate 25 mg tablet extended release 24 hr 25 mg PO DAILY Qty: 90 RF: 4 lamotrigine 25 mg tablet 50 mg PO BID Qty: 120 RF: 2 primidone 50 mg tablet 75 mg PO BID Qty: 90 RF: 2 oxcarbazepine 300 mg tablet RF: 0 meclizine 25 MG tablet 25 mg PO Q8H PRN PRN (Reason: Dizziness) Qty: 20 RF: 0 atorvastatin 40 mg tablet 40 mg PO QHS Qty: 30 RF: 12 Primary Care Provider: Care Physician,No Primary Referrals: Alivia Fu MD [STAFF PHYSICIAN] - 1-2 Weeks Care Physician,No Primary [Primary Care Provider] - Disposition Disposition: Home, Self Care
[2021-07-04] MEDS: Acetaminophen 500 MG Tablet 1000 MG PO (18:53)
[2021-07-04] MEDS: Lidocaine 5% Patch 1 PATCH TOPICAL (18:54)
[2021-07-04 20:37] VITALS: PULSE 79; RESP 18; O2SAT 96
[2021-07-04] MEDS: HYDROcodone Bitartrate/Apap 5/325 Tablet PO (21:09)
== END 2021-07-04 21:09 | disposition home or self-care (01) ==
PROVIDERS: Emergency Provider Emergency Medicine; Visit Provider Emergency Medicine
DX: S20.229A Contusion of unspecified back wall of thorax, initial encounter (principal); W19.XXXA Unspecified fall, initial encounter; F17.210 Nicotine dependence, cigarettes, uncomplicated; E78.5 Hyperlipidemia, unspecified; I25.10 Atherosclerotic heart disease of native coronary artery without angina pectoris; G89.29 Other chronic pain; M54.9 Dorsalgia, unspecified
CPT/HCPCS: 74176; 99284

== ENCOUNTER 2021-10-16 19:46 | Emergency (ER) | payer MEDICARE, MEDICAID, SELFPAY ==
[2017-10-06 13:03] VITALS: BMI 22.4
[2021-10-16 19:47] VITALS: BP 105/77; PULSE 80; RESP 18; TEMP 36.7; O2SAT 100
--- NOTE | 2021-10-16 20:36 | EKG12_ITS ---
Test Reason : DYSRHYTHMIA Blood Pressure : / mmHG Vent. Rate : 077 BPM Atrial Rate : 077 BPM P-R Int : 156 ms QRS Dur : 096 ms QT Int : 392 ms P-R-T Axes : 073 -16 086 degrees QTc Int : 443 ms Normal sinus rhythm Septal infarct , age undetermined Abnormal ECG Confirmed by CONCETTA WOODWARD, HAL ([id number]), videotape editor JAQUELIN DON ([id number]) on 10/19/2021 11:32:45 AM Referred By: MAGALYS Confirmed By:HAL HYLTON MD
[2021-10-16] MEDS: oxyCODONE 5 MG Tablet PO (20:46)
[2021-10-16 21:24] LABS: Anion Gap 5 (5-15); BUN 17 mg/dL (7-18); BUN/Creat Ratio 20.3 RATIO (10-20); Calcium,Total 8.8 mg/dL (8.5-10.1); Chloride 101 mmol/L (98-107); Creatinine, Serum 0.84 mg/dL (0.70-1.30); EST Glomerular Filtration Rate 97 mL/min (>60); Est Glom Filt Rate - Afr Amer 118 mL/min (>60); Estimated Creatinine Clearance 72.27 ml/min; Glucose 80 mg/dL (74-106); Potassium 4.2 mmol/L (3.5-5.1); Sodium Level 135 mmol/L (136-145)
[2021-10-16 21:26] LABS: Absolute Neutrophil Count 5.7 X10^3/uL (2.0-7.7); Basophil# 0.13 X10^3/uL; Basophil% 1.1 % (0-1); Eosinophil# 1.56 X10^3/uL; Eosinophils% 12.8 % (0-5); Hematocrit 32.5 % (40-54); Hemoglobin 10.5 g/dL (13.0-16.5); Mean Corp Hgb Conc 32.3 g/dL (32-36); Mean Corpuscular Hgb 31.4 pg (27.0-32.0); Mean Corpuscular Volume 97.3 fL (80-94); Monocyte# 0.92 X10^3/uL; Monocyte% 7.5 % (0-10); NRBC Flagged by Analyzer 0 % (0-5); Neutrophil # 5.65 X10^3/uL (2.7-7.7); Neutrophil % 46.3 % (47-70); Platelet Count 517 K/mm3 (150-450); RBC Distribution Width CV 13.7 % (11.6-14.6); RBC Distribution Width SD 49.2 fl (35.1-43.9); Red Blood Count 3.34 M/mm3 (4.6-6.2); White Blood Count 12.2 K/mm3 (4.4-11.0)
--- NOTE | 2021-10-16 22:09 | EDS_ITS ---
HPI History of Present Illness Chief Complaint: Upper Extremity Injury Detail of Chief Complaint: Left arm pain Informant: patient Onset/Context/Timing Onset: Yesterday Context: Gradual Onset Current Severity: Mild Maximum Severity: Moderate Narrative Narrative: Patient present secondary left arm numbness and pain. He states his arm feels numb from his wrist to his elbow. He states he has normal sensation in his hand. When you touch his left forearm he will get sharp shooting pain that goes up to his axilla and down his left lateral rib cage. Patient had triple bypass 3 weeks ago. He was seen by his PCP yesterday and his cardiac surgeon earlier today. He states both felt that the pain seemed to originate near the radial artery and they believe this is inflammatory changes from a prior IV site. Patient presented to the emergency room [facility] for same. [facility] Medical History Abnormal electrocardiogram Atherosclerotic heart disease of [place] coronary artery without angina pectoris Atrial septal aneurysm Chronic back pain CVA (cerebral vascular accident) Heart valve problem History of left heart catheterization (LHC) (~05/27/21) Hyperlipidemia Nicotine dependence Seizure Syncope and collapse Home Medications aspirin 81 mg tablet,delayed release (Adult Aspirin Regimen) 81 mg PO DAILY #90 tabs 04/16/21 [Rx Last Taken 05/27/21] clopidogrel 75 mg tablet (Plavix) 75 mg PO DAILY #90 tabs 04/16/21 [Rx Last Taken 05/27/21] atorvastatin 40 mg tablet 40 mg PO QHS #30 tabs 05/27/21 [Rx Last Taken Unknown] metoprolol succinate 25 mg tablet,extended release 24 hr 25 mg PO DAILY #90 tabs 06/02/21 [Rx Last Taken Unknown] nitroglycerin 0.4 mg sublingual tablet (Nitrostat) 0.4 mg sublingual Q5-15M PRN chest pain #25 tabs 06/02/21 [Rx Last Taken Unknown] lidocaine 5 % topical patch (Lidoderm) 1 patch topical DAILY #6 ea 07/04/21 [Rx Last Taken Unknown] primidone 50 mg tablet 75 mg PO BID tremor #90 tabs 08/11/21 [Rx Last Taken Unknown] cyclobenzaprine 5 mg tablet 5 mg PO TID PRN muscle spasm #20 tabs 09/09/21 [Rx Last Taken Unknown] acetaminophen 500 mg capsule 500 mg PO Q6H PRN 10/07/21 [History Last Taken U nknown] amiodarone 200 mg tablet 200 mg PO DAILY 10/07/21 [History Last Taken Unknown] ascorbate calcium (vitamin C) 500 mg tablet 500 mg PO DAILY 10/07/21 [History Last Taken Unknown] ferrous sulfate 325 mg (65 mg iron) tablet (FeroSul) 325 mg PO DAILY 10/07/21 [History Last Taken Unknown] folic acid 1 mg tablet 1 mg PO DAILY 10/07/21 [History Last Taken Unknown] gabapentin 100 mg capsule 100 mg PO BID 10/07/21 [History Last Taken Unknown] magnesium oxide 400 mg (241.3 mg magnesium) tablet 400 mg PO DAILY 10/07/21 [History Last Taken Unknown] nicotine 21 mg/24 hr daily transdermal patch 1 patch transdermal DAILY 10/07/21 [History Last Taken Unknown] oxcarbazepine 300 mg tablet 300 mg PO BID 10/07/21 [History Last Taken Unknown] oxycodone 5 mg capsule 5 mg PO Q8H PRN 10/07/21 [History Last Taken Unknown] sennosides 8.6 mg-docusate sodium 50 mg tablet (Senna with Docusate Sodium) 1 tab-cap PO BID 10/07/21 [History Last Taken Unknown] thiamine HCl (vitamin B1) 100 mg tablet 100 mg PO TID 10/07/21 [History Last Taken Unknown] oxycodone 5 mg tablet 5 mg PO Q6H PRN pain 3 days #10 tabs 10/16/21 [Rx Last Taken Unknown] Allergy/AdvReac Type Severity Reaction Status Date / Time tuberculin, purified protein Allergy Swelling Verified 10/16/21 19:51 deriva bumble bee stings Allergy Severe Anaphylaxis Uncoded 10/15/21 14:24 Family History Mother Myocardial infarction Brother Myocardial infarction Surgical History finger surgery History of lumbar puncture (~04/2017) lymph node resection S/P triple vessel bypass Stented coronary artery (10/06/17) Social History household members: family Smoking Status: Current every day smoker tobacco type: cigarettes Tobacco: How many years used: 61 Electronic Cigarette Use: not used second hand exposure: Yes alcohol intake: current alcohol intake frequency: 0-2 drinks per day Alcohol type: hard liquor details: Patient reduced his alcohol intake when 'his lady passed in 2014' substance use type: does not use caffeine: Yes Type: carbonated beverages and coffee ROS ROS ED Constitutional Constitutional ED: Denies chills or fever(s) Eyes Eyes: Denies change in vision or discharge from eye(s) ENT ENT ED: Denies discharge from eye(s), rhinorrhea or sore throat Cardiovascular Cardiovascular: Denies chest pain or palpitations Respiratory/Chest Respiratory/Chest: Denies cough or dyspnea Gastrointestinal Gastrointestinal: Denies abdominal pain, diarrhea, nausea or vomiting Genitourinary Genitourinary ED: Denies difficulty urinating or dysuria Musculoskeletal Musculoskeletal: Reports extremity pain; Denies back pain Integumentary Denies Abrasions or rash Neurologic Neurologic: Reports paresthesias; Denies headache(s) or weakness Psychiatric Psychiatric: Denies anxiety or depression Allergic/Immunologic Allergic/Immunologic ED: Denies lip swelling or urticaria EXAM Physical Exam Const Vital Signs: 10/16/21 19:47 Temperature 98.1 F Temperature Source Temporal Pulse Rate 80 Respiratory Rate 18 Blood Pressure 105/77 Blood Pressure Mean 86 Pulse Ox 100 Oxygen Delivery Method Room Air Positive well nourished and well developed General Appearance ED: well developed HEENT Reports moist mucous membranes normocephalic Eyes PERRL and EOMs intact bilaterally Neck full ROM Chest Wall inspection of chest normal and palpation of chest normal Resp normal respiratory effort and clear to auscultation bilaterally Cardio regular rate and regular rhythm GI non-tender and non-distended Extremity Extremity Narrative: No obvious edema noted on the left arm. Muscular tenderness throughout the forearm and upper arm. Strong distal pulses. Normal sensation in hand grasp. Neuro oriented x3, CN's II-XII intact bilaterally and moves all extremities Skin Skin Narrative: No sign of abscess or cellulitis to the left upper extremity. MDM MDM MDM Narrative Medical decision making narrative: Patient given oxycodone for pain. Lab work obtained. Lab Data Attestation: I reviewed the patient's lab results. Labs: Laboratory Results - last 24 hr 10/16/21 10/16/21 21:00 21:00 WBC 12.2 H RBC 3.34 L Hgb 10.5 L Hct 32.5 L MCV 97.3 H MCH 31.4 MCHC 32.3 RDW Std Deviation 49.2 H RDW Coeff of [place] 13.7 Plt Count 517 H MPV 9.0 Immature Gran % (Auto) 0.300 Neut % (Auto) 46.3 L Lymph % (Auto) 32.0 [place] % (Auto) 7.5 Eos % (Auto) 12.8 H Baso % (Auto) 1.1 H Absolute Neuts (auto) 5.7 Absolute Lymphs (auto) 3.90 Nucleated RBC % 0 Sodium 135 L Potassium 4.2 Chloride 101 Carbon Dioxide 29.0 Anion Gap 5 BUN 17 Creatinine 0.84 Estim Creat Clear Calc 72.27 Est GFR (MDRD) Af Amer 118 Est GFR (MDRD) Non-Af 97 BUN/Creatinine Ratio 20.3 H Glucose 80 Calcium 8.8 Magnesium 2.0 EKG Initial EKG: Attestation: I personally reviewed and interpreted this EKG as follows: Interpretation: Sinus Rhythm (Sinus at [address] change.) Treatment and Re-Evaluation Narrative: Patient's lab work is largely unremarkable. White count is slightly elevated at 12.2 but no left shift is appreciated. Chemistry studies reveal normal potassium and normal magnesium. Renal function is normal.Patient presents on a Tuesday evening when I do not have availability to do upper extremity venous ultrasound. I will write for him to come back on Tuesday and have that performed. Patient be treated with analgesics. Discharge Plan Triage Chief Complaint: Upper Extremity Injury ED Provider: Nina Palacio Dx/Rx/DC Orders Clinical Impression: Arm pain, left, Musculoskeletal arm pain Instructions: ED Pain, Acute, Uncertain Cause Prescriptions: New oxycodone 5 mg tablet 5 mg PO Q6H PRN (Reason: pain) 3 Days Qty: 10 0RF No Action clopidogrel [Plavix] 75 mg tablet 75 mg PO DAILY Qty: 90 3RF aspirin [Adult Aspirin Regimen] 81 mg tablet,delayed release (DR/EC) 81 mg PO DAILY Qty: 90 3RF nitroglycerin [Nitrostat] 0.4 mg tablet, sublingual 0.4 mg sublingual Q5-15M PRN (Reason: chest pain) Qty: 25 3RF Rx Instructions: do not exceed 3 doses per episode metoprolol succinate 25 mg tablet extended release 24 hr 25 mg PO DAILY Qty: 90 4RF primidone 50 mg tablet 75 mg PO BID Qty: 90 4RF cyclobenzaprine 5 mg tablet 5 mg PO TID PRN (Reason: muscle spasm) Qty: 20 0RF oxcarbazepine 300 mg tablet 300 mg PO BID Label Comments: TAKE 1 TABLET DAILY FOR 1 WEEK then TAKE 1 TABLET TWICE DAILY thereafter acetaminophen 500 mg capsule 500 mg PO Q6H PRN amiodarone 200 mg tablet 200 mg PO DAILY ascorbate calcium (vitamin C) 500 mg tablet 500 mg PO DAILY ferrous sulfate [FeroSul] 325 mg (65 mg iron) tablet 325 mg PO DAILY folic acid 1 mg tablet 1 mg PO DAILY gabapentin 100 mg capsule 100 mg PO BID magnesium oxide 400 mg (241.3 mg magnesium) tablet 400 mg PO DAILY nicotine 21 mg/24 hr patch 24 hour 1 patch transdermal DAILY oxycodone 5 mg capsule 5 mg PO Q8H PRN sennosides-docusate sodium [Senna with Docusate Sodium] 8.6-50 mg tablet 1 tab-cap PO BID thiamine HCl (vitamin B1) 100 mg tablet 100 mg PO TID lidocaine [Lidoderm] 5 % adhesive patch,medicated 1 patch topical DAILY Qty: 6 0RF Rx Instructions: leave on most painful area for up to 12 hrs atorvastatin 40 mg tablet 40 mg PO QHS Qty: 30 12RF Other Ambulatory Orders: Venous Duplex US, Unilateral (Routine) Facility: [facility] - Location: [facility] Ordered By: Dr. Nina Palacio ON-CALL NEEDED: Notify [facility] - Doppler Study Ordered (Stat) Location: None Selected Ordered By: Dr. Nina Palacio Primary Care Provider: Yamilet Medina Referrals: Yamilet Medina MD [Primary Care Provider] - 1 Week if not improving Disposition Disposition: Home, Self Care
[2021-10-16 23:03] VITALS: BP 111/71; PULSE 76; RESP 16; O2SAT 95
== END 2021-10-16 23:04 | disposition home or self-care (01) ==
PROVIDERS: Emergency Provider Emergency Medicine; PCP Internal Medicine; Visit Provider Emergency Medicine
DX: M79.602 Pain in left arm (principal); I25.10 Atherosclerotic heart disease of native coronary artery without angina pectoris; E78.5 Hyperlipidemia, unspecified; F17.210 Nicotine dependence, cigarettes, uncomplicated; Z95.1 Presence of aortocoronary bypass graft; Z79.899 Other long term (current) drug therapy
CPT/HCPCS: 36415; 80048; 83735; 85025; 93005; 99285; A4216

== ENCOUNTER 2021-10-18 12:42 | Emergency (ER) | payer MEDICARE, MEDICAID, SELFPAY ==
[2017-10-06 13:03] VITALS: BMI 22.4
[2021-10-18 12:42] VITALS: BP 88/64; PULSE 79; RESP 14; TEMP 36.6; O2SAT 97; BMI 19.5
--- NOTE | 2021-10-18 13:34 | EDS_ITS ---
HPI History of Present Illness HPI Narrative: Possible left arm DVT. Age-indeterminate Chief Complaint: Upper Extremity Injury Informant: patient and family Onset/Context/Timing Onset: Days Timing: Intermittent Associated Symptoms Associated Symptoms: Positive for Parasthesia; Negative for Weakness or Loss of Funtion Narrative Narrative: 66-year-old male history of CAD with triple bypass done September 24 to go back to the OR due to complications. He is also had a prior stroke. He is currently on aspirin and Plavix and has a history of A. fib. Today had an outpatient noninvasive study done of his left upper extremity which showed a suspected left IJ vein clot with only partial occlusion. But there is flow past it. Also the left cephalic vein is noncompressible at the elbow. Patient has no swelling in his arm. He has no complaints. He was sent from the noninvasive study to the ER because of the findings. Prior similar symptoms: Yes Recent Illness/Hospitalization: Yes [facility] Medical History Abnormal electrocardiogram Atherosclerotic heart disease of [place] coronary artery without angina pectoris Atrial septal aneurysm Chronic back pain CVA (cerebral vascular accident) Heart valve problem History of left heart catheterization (LHC) (~05/27/21) Hyperlipidemia Nicotine dependence Seizure Syncope and collapse Home Medications aspirin 81 mg tablet,delayed release (Adult Aspirin Regimen) 81 mg PO DAILY #90 tabs 04/16/21 [Rx Last Taken 05/27/21] clopidogrel 75 mg tablet (Plavix) 75 mg PO DAILY #90 tabs 04/16/21 [Rx Last Taken 05/27/21] atorvastatin 40 mg tablet 40 mg PO QHS #30 tabs 05/27/21 [Rx Last Taken Unknown] metoprolol succinate 25 mg tablet,extended release 24 hr 25 mg PO DAILY #90 tabs 06/02/21 [Rx Last Taken Unknown] nitroglycerin 0.4 mg sublingual tablet (Nitrostat) 0.4 mg sublingual Q5-15M PRN chest pain #25 tabs 06/02/21 [Rx Last Taken Unknown] lidocaine 5 % topical patch (Lidoderm) 1 patch topical DAILY #6 ea 07/04/21 [Rx Last Taken Unknown] primidone 50 mg tablet 75 mg PO BID tremor #90 tabs 08/11/21 [Rx Last Taken Unknown] cyclobenzaprine 5 mg tablet 5 mg PO TID PRN muscle spasm #20 tabs 09/09/21 [Rx Last Taken Unknown] acetaminophen 500 mg capsule 500 mg PO Q6H PRN 10/07/21 [History Last Taken Unknown] amiodarone 200 mg tablet 200 mg PO DAILY 10/07/21 [History Last Taken Unknown] ascorbate calcium (vitamin C) 500 mg tablet 500 mg PO DAILY 10/07/21 [History Last Taken Unknown] ferrous sulfate 325 mg (65 mg iron) tablet (FeroSul) 325 mg PO DAILY 10/07/21 [History Last Taken Unknown] folic acid 1 mg tablet 1 mg PO DAILY 10/07/21 [History Last Taken Unknown] gabapentin 100 mg capsule 100 mg PO BID 10/07/21 [History Last Taken Unknown] magnesium oxide 400 mg (241.3 mg magnesium) tablet 400 mg PO DAILY 10/07/21 [History Last Taken Unknown] nicotine 21 mg/24 hr daily transdermal patch 1 patch transdermal DAILY 10/07/21 [History Last Taken Unknown] oxcarbazepine 300 mg tablet 300 mg PO BID 10/07/21 [History Last Taken Unknown] oxycodone 5 mg capsule 5 mg PO Q8H PRN 10/07/21 [History Last Taken Unknown] sennosides 8.6 mg-docusate sodium 50 mg tablet (Senna with Docusate Sodium) 1 tab-cap PO BID 10/07/21 [History Last Taken Unknown] thiamine HCl (vitamin B1) 100 mg tablet 100 mg PO TID 10/07/21 [History Last Taken Unknown] oxycodone 5 mg tablet 5 mg PO Q6H PRN pain 3 days #10 tabs 10/16/21 [Rx Last Taken Unknown] Allergy/AdvReac Type Severity Reaction Status Date / Time tuberculin, purified protein Allergy Swelling Verified 10/18/21 12:44 deriva bumble bee stings Allergy Severe Anaphylaxis Uncoded 10/18/21 12:44 Family History Mother Myocardial infarction Brother Myocardial infarction Surgical History finger surgery History of lumbar puncture (~04/2017) lymph node resection S/P triple vessel bypass Stented coronary artery (10/06/17) Social History household members: family Smoking Status: Current every day smoker tobacco type: cigarettes Tobacco: How many years used: 61 Electronic Cigarette Use: not used second hand exposure: Yes alcohol intake: current alcohol intake frequency: 0-2 drinks per day Alcohol t ype: hard liquor details: Patient reduced his alcohol intake when 'his lady passed in 2014' substance use type: does not use caffeine: Yes Type: carbonated beverages and coffee ROS ROS ED ROS Narrative Denies recent illness. Review of Systems ROS Unobtainable: Denies due to encephalopathy Constitutional Constitutional ED: Denies chills Eyes Eyes: Denies blurry vision ENT ENT ED: Denies ear pain Cardiovascular Cardiovascular: Denies chest pain Respiratory/Chest Respiratory/Chest: Denies cough Gastrointestinal Gastrointestinal: Denies abdominal pain Genitourinary Genitourinary ED: Denies dysuria Musculoskeletal Musculoskeletal: Denies back pain Integumentary Denies abscess Neurologic Neurologic: Denies headache(s) Psychiatric Psychiatric: Denies anxiety Endocrine Endocrinology: Denies cold intolerance Hematologic/Lymphatic Hematologic/Lymphatic: Denies easy bleeding Allergic/Immunologic Allergic/Immunologic ED: Denies mouth swelling EXAM Physical Exam Narrative Exam Narrative: Blood 6-year-old male. Vital signs stable. He is afebrile. Initial blood pressure 88/64 that will be rechecked. Pulse is 97% on room air no signs hypoxia. Patient is resting in bed comfortably. H EENT exam unremarkable. Neck nontender no JVD. Lungs clear to auscultation. Heart regular rhythm rate about 80. No murmur. Healing sternotomy incision. Abdomen soft nontender. Moving all 4 extremities. Specifically left upper arm is a strong radial pulse. He has normal associate store manager strength. There is no swelling or edema in the arm. He has full range of motion left shoulder elbow wrist normal strength and sensation. There is no signs of any swelling or edema. Otherwise exam unremarkable. Const Vital Signs: 10/18/21 12:42 Temperature 97.8 F Temperature Source Temporal Pulse Rate 79 Respiratory Rate 14 Blood Pressure 88/64 L Blood Pressure Mean 72 Pulse Ox 97 Oxygen Delivery Method Room Air Positive well nourished and well developed; Negative for obese, cachectic, contractures or unkempt General Appearance ED: well developed; Negative for unkempt, cachectic or contractures Nutritional Appearance: Negative for cachectic or obese HEENT Reports moist mucous membranes Negative for normocephalic, atraumatic, trauma or tenderness Eyes PERRL and EOMs intact bilaterally General Eye ED: Negative for other Neck full ROM and supple General: Negative for tenderness Lymph Lymphatic: Negative for other Chest Wall inspection of chest normal and palpation of chest normal Resp normal respiratory effort and clear to auscultation bilaterally Auscultation: Negative for rales or rhonchi Cardio regular rate, regular rhythm, S1 normal heart sound, S2 normal heart sound and no murmurs Rate: Negative for bradycardia Rhythm: Negative for abnormal rhythm GI non-tender, non-distended and no masses Inspection: Negative for abdominal distention Auscultation: normoactive bowel sounds Palpation: soft; Negative for tender or guarding Back/Spine no CVA tenderness Extremity normal to inspection and full ROM General Extremety ED: Negative for edema or other findings General Extremity: Negative for edema or other findings Neuro oriented x3, moves all extremities, no focal motor deficits and no sensory deficits noted Sensorium / Orientation: alert, oriented to person, oriented to place and oriented to time; Negative for orientation impaired, lethargic or stuporous Motor Exam: strength 5/5 throughout Psych mental status grossly normal Appearance: Negative for unkempt Attitude: No agitated Mood & Affect: Negative for depressed or anxious Skin General Skin Exam: Negative for petechiae Lesions: no lesions Rashes: no rashes MDM MDM MDM Narrative Medical decision making narrative: Patient sent from noninvasive due to potential left IJ vein partial occlusion age-indeterminate clot. Also noncompressible left cephalic vein at the elbow. Patient is already on Plavix and aspirin. His exam he has no signs of a DVT. There is no swelling or edema in his arm. His left hand is neurovascularly intact with a strong radial pulse, associate store manager strength and sensation. I do believe there is any need to be done acutely. He can follow-up with vascular surgery for this. I am seeing if there is anybody on-call for vascular surgery to run this by. Lab Data Lab results narrative: Patient had a noninvasive study of his left upper extremity today. It showed a left IJ vein is partially compressible with minimal flow noted. Also left cephalic vein at the elbow was noncompressible. Patient's exam of his arm is normal. These may or may not be clots. They are age-indeterminate. I discussed all this with his primary care physician Dr. Yamilet Medina. We will hold off on any further therapy at this time the patient is already on Plavix and aspirin and Dr. Gonzáles will follow him up this week. I discussed this all with the family. There was no one environmental safety specialist today for vascular surgery for discussing this case. Discharge Plan Triage Chief Complaint: Upper Extremity Injury ED Provider: Ryan Kowalski Dx/Rx/DC Orders Clinical Impression: Arm pain, left, History of coronary artery disease, History of atrial fibrillation Prescriptions: No Action clopidogrel [Plavix] 75 mg tablet 75 mg PO DAILY Qty: 90 3RF aspirin [Adult Aspirin Regimen] 81 mg tablet,delayed release (DR/EC) 81 mg PO DAILY Qty: 90 3RF nitroglycerin [Nitrostat] 0.4 mg tablet, sublingual 0.4 mg sublingual Q5-15M PRN (Reason: chest pain) Qty: 25 3RF Rx Instructions: do not exceed 3 doses per episode metoprolol succinate 25 mg tablet extended release 24 hr 25 mg PO DAILY Qty: 90 4RF primidone 50 mg tablet 75 mg PO BID Qty: 90 4RF cyclobenzaprine 5 mg tablet 5 mg PO TID PRN (Reason: muscle spasm) Qty: 20 0RF oxcarbazepine 300 mg tablet 300 mg PO BID Label Comments: TAKE 1 TABLET DAILY FOR 1 WEEK then TAKE 1 TABLET TWICE DAILY thereafter acetaminophen 500 mg capsule 500 mg PO Q6H PRN amiodarone 200 mg tablet 200 mg PO DAILY ascorbate calcium (vitamin C) 500 mg tablet 500 mg PO DAILY ferrous sulfate [FeroSul] 325 mg (65 mg iron) tablet 325 mg PO DAILY folic acid 1 mg tablet 1 mg PO DAILY gabapentin 100 mg capsule 100 mg PO BID magnesium oxide 400 mg (241.3 mg magnesium) tablet 400 mg PO DAILY nicotine 21 mg/24 hr patch 24 hour 1 patch transdermal DAILY oxycodone 5 mg capsule 5 mg PO Q8H PRN sennosides-docusate sodium [Senna with Docusate Sodium] 8.6-50 mg tablet 1 tab-cap PO BID thiamine HCl (vitamin B1) 100 mg tablet 100 mg PO TID lidocaine [Lidoderm] 5 % adhesive patch,medicated 1 patch topical DAILY Qty: 6 0RF Rx Instructions: leave on most painful area for up to 12 hrs oxycodone 5 mg tablet 5 mg PO Q6H PRN (Reason: pain) 3 Days Qty: 10 0RF atorvastatin 40 mg tablet 40 mg PO QHS Qty: 30 12RF Primary Care Provider: Yamilet Medina Referrals: Yamilet Medina MD [Primary Care Provider] - As soon as possible Activity Restrictions/Additional Instructions: Call Dr. Medina's office tomorrow to get in for an appointment this week. After he evaluates he will determine if he needs to do any further therapy or start you on a blood thinner. Disposition Disposition: Home, Self Care
== END 2021-10-18 14:15 | disposition home or self-care (01) ==
LOC: ED 14:11
PROVIDERS: Emergency Provider Emergency Medicine; PCP Internal Medicine; Visit Provider Emergency Medicine
DX: I82.C12 Acute embolism and thrombosis of left internal jugular vein (principal); G40.909 Epilepsy, unspecified, not intractable, without status epilepticus; I25.10 Atherosclerotic heart disease of native coronary artery without angina pectoris; E78.5 Hyperlipidemia, unspecified; F17.210 Nicotine dependence, cigarettes, uncomplicated; Z95.1 Presence of aortocoronary bypass graft; Z79.82 Long term (current) use of aspirin; Z79.899 Other long term (current) drug therapy
CPT/HCPCS: 93971; 99282

== ENCOUNTER → 2021-10-18 | Outpatient (CLI) | payer MEDICARE, MEDICAID, SELFPAY ==
[2017-10-06 13:03] VITALS: BMI 22.4
--- NOTE | 2021-10-18 12:14 | VDUE_ITS ---
Reason For Study: Pain Left Proximal Lt IJV is partially compressible with minimal flow noted. Left subclavian vein is spontaneous, widely patent, phasic, with no intraluminal echogenicity noted. Left Arm Left axillary vein is spontaneous, patent, phasic, competent, compressible and demonstrates augmentation. Left brachial vein is compressible. Lt CephalicV at elbow is non compressible. Left basilic vein is compressible. Left Lower Arm Left radial vein is compressible. Left ulnar vein is compressible. Patient Safety Patient taken to ED. VL/Venous Duplex US, Unilateral Interpretation Summary Acute thrombosis and chronic venous changes are noted in the left internal jugu lar vein. The remainder of the left upper extremity deep venous system is patent. Acute super ficial thrombophebitis is noted in the left cephalic vein at elbow level. The left bas ilic vein is patent and compressible segmentally. Ordering Physician: Nina Palacio Referring Physician: Yamilet Medina Performed By: Ailyn Mckee, TARYN, RVT ?
== END | disposition home or self-care (01) ==
LOC: US 11:47
PROVIDERS: PCP Internal Medicine; Visit Provider Emergency Medicine
DX: R52 Pain, unspecified (principal)
CPT/HCPCS: 93971

== ENCOUNTER 2021-10-29 20:27 | Emergency (ER) | payer MEDICARE, MEDICAID, SELFPAY ==
[2017-10-06 13:03] VITALS: BMI 22.4
[2021-10-29 20:27] VITALS: BP 126/78; PULSE 91; RESP 18; TEMP 36.7; O2SAT 99; BMI 19.5
--- NOTE | 2021-10-29 20:38 | NURSING ---
reports continuous n/t to rue for several days. sensation in tact.
--- NOTE | 2021-10-29 20:48 | EKG12_ITS ---
Test Reason : CP Blood Pressure : / mmHG Vent. Rate : 090 BPM Atrial Rate : 090 BPM P-R Int : 146 ms QRS Dur : 092 ms QT Int : 364 ms P-R-T Axes : 074 -09 069 degrees QTc Int : 445 ms Normal sinus rhythm Septal infarct , age undetermined Abnormal ECG Confirmed by KAMRYN WOODWARD, AUSTEN ([id number]), news videotape editor COREEN BOYER ([id number]) on 11/02/2021 11:27:56 AM Referred By: Confirmed By:AWLTER HARRY MD
--- NOTE | 2021-10-29 20:49 | ED.VIS.CHEST ---
HPI History of Present Illness Chief Complaint: Chest Pain Narrative Narrative: Patient presents with left forearm numbness that he has had for weeks ever since he had triple bypass at [facility] approximately 1 month ago. He states that now he is having sharp, stabbing pain in his armpit and it radiates down his left chest. Additionally, it radiates down his arm and his left forearm feels numb still. Of note, he states that he was in the emergency department last , approximately 8 days ago, and was diagnosed with a blood clot in his left arm, and is on blood thinners but he cannot remember which one it is. He is a smoker and continues to smoke. He is down to half a pack a day. He denies any exacerbating or alleviating factors to his left armpit pain and left side pain. [facility] Medical History Abnormal electrocardiogram Atherosclerotic heart disease of [place] coronary artery without angina pectoris Atrial septal aneurysm Chronic back pain CVA (cerebral vascular accident) Heart valve problem History of left heart catheterization (LHC) (~05/27/21) Hyperlipidemia Nicotine dependence Seizure Syncope and collapse Home Medications atorvastatin 40 mg tablet 40 mg PO QHS #30 tabs 05/27/21 [Rx Last Taken Unknown] metoprolol succinate 25 mg tablet,extended release 24 hr 25 mg PO DAILY #90 tabs 06/02/21 [Rx Last Taken Unknown] nitroglycerin 0.4 mg sublingual tablet (Nitrostat) 0.4 mg sublingual Q5-15M PRN chest pain #25 tabs 06/02/21 [Rx Last Taken Unknown] lidocaine 5 % topical patch (Lidoderm) 1 patch topical DAILY #6 ea 07/04/21 [Rx Last Taken Unknown] primidone 50 mg tablet 75 mg PO BID tremor #90 tabs 08/11/21 [Rx Last Taken Unknown] cyclobenzaprine 5 mg tablet 5 mg PO TID PRN muscle spasm #20 tabs 09/09/21 [Rx Last Taken Unknown] ascorbate calcium (vitamin C) 500 mg tablet 500 mg PO DAILY 10/07/21 [History Last Taken Unknown] gabapentin 100 mg capsule 100 mg PO BID 10/07/21 [History Last Taken Unknown] nicotine 21 mg/24 hr daily transdermal patch 1 patch transdermal DAILY 10/07/21 [History Last Taken Unknown] oxcarbazepine 300 mg tablet 300 mg PO BID 10/07/21 [History Last Taken Unknown] oxycodone 5 mg capsule 5 mg PO Q8H PRN 10/07/21 [History Last Taken Unknown] sennosides 8.6 mg-docusate sodium 50 mg tablet (Senna with Docusate Sodium) 1 tab-cap PO BID 10/07/21 [History Last Taken Unknown] thiamine HCl (vitamin B1) 100 mg tablet 100 mg PO TID 10/07/21 [History Last Taken Unknown] oxycodone 5 mg tablet 5 mg PO Q6H PRN pain 3 days #10 tabs 10/16/21 [Rx Last Taken Unknown] acetaminophen 500 mg capsule 1,000 mg PO Q6H PRN pain #90 caps 10/21/21 [Rx Last Taken Unknown] amiodarone 200 mg tablet 200 mg PO DAILY #90 tabs 10/21/21 [Rx Last Taken Unknown] aspirin 81 mg tablet,delayed release (Adult Aspirin Regimen) 81 mg PO DAILY #90 tabs 10/21/21 [Rx Last Taken Unknown] clopidogrel 75 mg tablet (Plavix) 75 mg PO DAILY #90 tabs 10/21/21 [Rx Last Taken Unknown] ferrous sulfate 325 mg (65 mg iron) tablet (FeroSul) 325 mg PO DAILY #90 tabs 10/21/21 [Rx Last Taken Unknown] folic acid 1 mg tablet 1 mg PO DAILY #90 tabs 10/21/21 [Rx Last Taken Unknown] lamotrigine 25 mg tablet (Lamictal) 50 mg PO BID #120 tabs 10/21/21 [Rx Last Taken Unknown] magnesium oxide 400 mg (241.3 mg magnesium) tablet 400 mg PO DAILY #90 tabs 10/21/21 [Rx Last Taken Unknown] multivitamin (Daily-Tin tablet) 1 tab PO DAILY #90 tabs 10/21/21 [Rx Last Taken Unknown] Allergy/AdvReac Type Severity Reaction Status Date / Time bee venom protein (honey bee) Allergy Severe Anaphylaxis Verified 10/22/21 14:43 tuberculin, purified protein Allergy Swelling Verified 10/19/21 10:48 deriva Family History Mother Myocardial infarction Brother Myocardial infarction Surgical History finger surgery History of lumbar puncture (~04/2017) lymph node resection S/P triple vessel bypass Stented coronary artery (10/06/17) Social History household members: family Smoking Status: Current every day smoker tobacco type: cigarettes Tobacco: How many years used: 61 Electronic Cigarette Use: not used second hand exposure: Yes alcohol intake: current alcohol intake frequency: 0-2 drinks per day Alcohol type: hard liquor details: Patient reduced his alcohol intake when 'his lady passed in 2014' substance use type: does not use caffeine: Yes Type: carbonated beverages and coffee ROS ROS ED ROS Narrative Constitutional: No fever, no chills. HEENT: No sore throat. No neck pain. No loss of vision. No rhinorrhea. Cardiovascular: Left-sided chest pain originating from left axilla. No palpitations. No pedal edema. Respiratory: No cough, no shortness of breath. Abdominal: No abdominal pain. No nausea. No vomiting. Genitourinary: No dysuria. No hematuria. Musculoskeletal: No myalgias. No arthralgias. Neurologic: No headaches. No dizziness. No lightheadedness. Numbness of left forearm, chronic for the last month. Skin: No rash. No change in color. Psychiatric: No depression. No anxiety. EXAM Physical Exam Narrative Exam Narrative: Afebrile. Vital signs noted. Mildly cachectic. HEENT: Normocephalic. Atraumatic. PERRL, EOMI. Neck soft and supple. No point tenderness or step off. Cardiovascular: Regular rate and rhythm. No murmurs, rubs, or gallops appreciated. Respiratory: No tachypnea. Lungs clear to auscultation bilaterally. Gastrointestinal: Abdomen soft, nontender, with normoactive bowel sounds. No rebound or guarding. Neurological: Awake. Alert. Nonfocal, nonlateralizing. Skin: No rash. Normal color. No pallor. Musculoskeletal: No pedal edema. Full range of motion extremities. Const Vital Signs: 10/29/21 20:27 10/29/21 20:33 10/29/21 20:48 Temperature 98.0 F Temperature Source Temporal Pulse Rate 91 Respiratory Rate 18 Respiratory Effort Normal Blood Pressure 126/78 H Blood Pressure Mean 94 Pulse Ox 99 Oxygen Delivery Method Room Air Room Air 10/29/21 22:00 10/29/21 23:00 Temperature Temperature Source Pulse Rate 87 80 Respiratory Rate 20 H 17 Respiratory Effort Blood Pressure 118/74 117/74 Blood Pressure Mean 88 88 Pulse Ox 98 97 Oxygen Delivery Method Room Air Room Air Heart Score History: Slightly/Non-Suspicious ECG: Normal Age: >/= 65 years Risk Factors: >/= 3 Risk Factors or History of CAD Troponin: </= Normal Limit Score: 4 MDM MDM MDM Narrative Medical decision making narrative: EKG interpreted by myself demonstrates normal sinus rhythm at 90 bpm without ectopy or acute ST changes. No STEMI. Chest x-ray interpreted by me shows a small left pleural effusion but no evidence of pneumonia or CHF. No pneumothorax. Laboratory work shows WBC count normal at 10.8, hemoglobin stable 11.3, hematocrit 34.9. Platelet count slightly elevated at 472 which I think is nonspecific. BMP shows normal electrolyte panel. Initial high-sensitivity troponin is 6. Glucose elevated at 115 with a normal to low anion gap of 4. In discussion with the patient regarding his pleural effusion, he does state that it is coming back because he has had history of thoracentesis. This was most likely developed after his open heart surgery/triple bypass. He states he has a follow-up appointment with his physician at [facility] a week from today. I do feel that this may be the cause of his left-sided chest pain. As long as his delta troponin is negative, I feel he can be discharged safely home to follow-up. He will take [id number] analgesics as needed. I do not feel that he needs admission or emergent thoracentesis. His pulse ox is normal. Smoking cessation was discussed. Repeat high-sensitivity troponin 5. He has a negative delta troponin. At this point in time I feel he can be discharged safely home with follow-up. He will discuss with his [facility] physician there is reaccumulation of his left pleural effusion. Return instructions to the emergency department were reviewed. Disposition is discharged home in stable condition. Lab Data Attestation: I reviewed the patient's lab results. Labs: Laboratory Results - last 24 hr 10/29/21 10/29/21 10/29/21 21:20 21:20 23:32 WBC 10.8 RBC 3.73 L Hgb 11.3 L Hct 34.9 L MCV 93.6 MCH 30.3 MCHC 32.4 RDW Std Deviation 48.3 H RDW Coeff of [place] 14.1 Plt Count 472 H MPV 9.3 Immature Gran % (Auto) 0.300 Neut % (Auto) 49.2 Lymph % (Auto) 31.8 [place] % (Auto) 10.0 Eos % (Auto) 8.1 H Baso % (Auto) 0.6 Absolute Neuts (auto) 5.3 Absolute Lymphs (auto) 3.43 Nucleated RBC % 0 Differential Comment SCANNED Sodium 136 Potassium 4.3 Chloride 101 Carbon Dioxide 31.0 Anion Gap 4 L BUN 15 Creatinine 0.86 Estim Creat Clear Calc 68.98 Est GFR (MDRD) Af Amer 114 Est GFR (MDRD) Non-Af 95 BUN/Creatinine Ratio 17.5 Glucose 115 H Calcium 9.0 Troponin I High Sens 6 5 Radiography Diagnostic Testing: Clinical Impression(s) from Imaging Studies Chest X-Ray 10/29/21 21:20 IMPRESSION: Small left effusion, lungs are otherwise clear Electronically Signed: Eddie Chen DO at 21:54 EDT , Discharge Plan Triage Chief Complaint: Chest Pain ED Provider: Bryan Gomez Dx/Rx/DC Orders Clinical Impression: Chest pain, Pleural effusion, left, Arm pain, left Instructions: ED Chest Pain, Uncertain Cause, ED Pain, Acute, Uncertain Cause, ED Pleural Effusion, ED Pleurisy Prescriptions: No Action nitroglycerin [Nitrostat] 0.4 mg tablet, sublingual 0.4 mg sublingual Q5-15M PRN (Reason: chest pain) Qty: 25 3RF Rx Instructions: do not exceed 3 doses per episode metoprolol succinate 25 mg tablet extended release 24 hr 25 mg PO DAILY Qty: 90 4RF primidone 50 mg tablet 75 mg PO BID Qty: 90 4RF cyclobenzaprine 5 mg tablet 5 mg PO TID PRN (Reason: muscle spasm) Qty: 20 0RF oxcarbazepine 300 mg tablet 300 mg PO BID Label Comments: TAKE 1 TABLET DAILY FOR 1 WEEK then TAKE 1 TABLET TWICE DAILY thereafter ascorbate calcium (vitamin C) 500 mg tablet 500 mg PO DAILY gabapentin 100 mg capsule 100 mg PO BID nicotine 21 mg/24 hr patch 24 hour 1 patch transdermal DAILY oxycodone 5 mg capsule 5 mg PO Q8H PRN sennosides-docusate sodium [Senna with Docusate Sodium] 8.6-50 mg tablet 1 tab-cap PO BID thiamine HCl (vitamin B1) 100 mg tablet 100 mg PO TID lidocaine [Lidoderm] 5 % adhesive patch,medicated 1 patch topical DAILY Qty: 6 0RF Rx Instructions: leave on most painful area for up to 12 hrs oxycodone 5 mg tablet 5 mg PO Q6H PRN (Reason: pain) 3 Days Qty: 10 0RF atorvastatin 40 mg tablet 40 mg PO QHS Qty: 30 12RF acetaminophen 500 mg capsule 1,000 mg PO Q6H PRN (Reason: pain) Qty: 90 0RF Rx Instructions: 14 day #28 amiodarone 200 mg tablet 200 mg PO DAILY Qty: 90 1RF Rx Instructions: take 200 mg daily for 5 days and 1/2 tablet there after aspirin [Adult Aspirin Regimen] 81 mg tablet,delayed release (DR/EC) 81 mg PO DAILY Qty: 90 3RF clopidogrel [Plavix] 75 mg tablet 75 mg PO DAILY Qty: 90 3RF ferrous sulfate [FeroSul] 325 mg (65 mg iron) tablet 325 mg PO DAILY Qty: 90 1RF folic acid 1 mg tablet 1 mg PO DAILY Qty: 90 1RF lamotrigine [Lamictal] 25 mg tablet 50 mg PO BID Qty: 120 3RF magnesium oxide 400 mg (241.3 mg magnesium) tablet 400 mg PO DAILY Qty: 90 1RF multivitamin [Daily-Tin] Tablet 1 tab PO DAILY Qty: 90 3RF Primary Care Provider: Yamilet Medina Referrals: Yamilet Medina MD [Primary Care Provider] - 3-5 Days if not improving Activity Restrictions/Additional Instructions: Follow-up with your physician at [facility] as scheduled next week. Disposition Disposition: Home, Self Care
--- NOTE | 2021-10-29 21:20 | RAD_ITS ---
STUDY: X-RAY CHEST REASON FOR EXAM: Male, 66 years old. chest pain TECHNIQUE: Single AP portable view of the chest. COMPARISON: 06/29/2021 FINDINGS: There is hyperinflation of the lungs consistent with chronic obstructive lung disease (COPD). Small left effusion. Lungs are otherwise clear. Sternal cerclage wires are present from a prior sternotomy. Heart size is within normal limits Normal mediastinum and mariluz. Normal visualized pulmonary arteries. Normal visualized aortic arch and descending thoracic aorta. Normal visualized thoracic spine. Normal visualized ribs, clavicles, and shoulders. There is no demonstrated abnormality of the visualized soft tissue structures of the upper abdomen. RAD/Chest 1 View (Portable) IMPRESSION: Small left effusion, lungs are otherwise clear Electronically Signed: Eddie Chen DO at 21:54 EDT ,
[2021-10-29 21:40] LABS: Absolute Lymphocyte Count 3.43 X10^3/uL (0.83-4.51); Absolute Neutrophil Count 5.3 X10^3/uL (2.0-7.7); Basophil# 0.06 X10^3/uL; Basophil% 0.6 % (0-1); Eosinophil# 0.87 X10^3/uL; Eosinophils% 8.1 % (0-5); Hematocrit 34.9 % (40-54); Hemoglobin 11.3 g/dL (13.0-16.5); Lymphocyte # 3.43 X10^3/ul (0.83-4.51); Lymphocyte % 31.8 % (19-41); Mean Corp Hgb Conc 32.4 g/dL (32-36); Mean Corpuscular Hgb 30.3 pg (27.0-32.0); Mean Corpuscular Volume 93.6 fL (80-94); Mean Platelet Vol. 9.3 fl (6.2-12.0); Monocyte# 1.08 X10^3/uL; NRBC Flagged by Analyzer 0 % (0-5); Neutrophil # 5.31 X10^3/uL (2.7-7.7); Neutrophil % 49.2 % (47-70); POSITIVE MORPHOLOGY YES; Platelet Count 472 K/mm3 (150-450); RBC Distribution Width CV 14.1 % (11.6-14.6); RBC Distribution Width SD 48.3 fl (35.1-43.9); Red Blood Count 3.73 M/mm3 (4.6-6.2); White Blood Count 10.8 K/mm3 (4.4-11.0)
[2021-10-29 21:41] LABS: Differential Indicated SCAN CRITERIA MET
[2021-10-29 21:52] LABS: Anion Gap 4 (5-15); BUN 15 mg/dL (7-18); BUN/Creat Ratio 17.5 RATIO (10-20); Chloride 101 mmol/L (98-107); Creatinine, Serum 0.86 mg/dL (0.70-1.30); EST Glomerular Filtration Rate 95 mL/min (>60); Est Glom Filt Rate - Afr Amer 114 mL/min (>60); Estimated Creatinine Clearance 68.98 ml/min; Glucose 115 mg/dL (74-106); Potassium 4.3 mmol/L (3.5-5.1); Sodium Level 136 mmol/L (136-145); Troponin-I HS (w/2H Reflex) 6 pg/mL (3.0-78.0)
[2021-10-29 22:00] VITALS: BP 118/74; PULSE 87; RESP 20; O2SAT 98
[2021-10-29 22:00] LABS: Differential Comment SCANNED
[2021-10-29 23:00] VITALS: BP 117/74; PULSE 80; RESP 17; O2SAT 97
[2021-10-29 23:30] LABS: Reflex Troponin-HS? (from REC) Y
[2021-10-29 23:56] LABS: Troponin-I HS 5 pg/mL (3.0-78.0)
[2021-10-30 00:09] VITALS: BP 123/81; PULSE 77; RESP 20; O2SAT 98
[2021-10-30 00:18] VITALS: BP 123/81; PULSE 77; RESP 20; O2SAT 96
== END 2021-10-30 00:20 | disposition home or self-care (01) ==
PROVIDERS: Emergency Provider Emergency Medicine; PCP Internal Medicine; Visit Provider Emergency Medicine
DX: R07.9 Chest pain, unspecified (principal); J90 Pleural effusion, not elsewhere classified; F17.210 Nicotine dependence, cigarettes, uncomplicated; I25.10 Atherosclerotic heart disease of native coronary artery without angina pectoris; Z86.73 Personal history of transient ischemic attack (TIA), and cerebral infarction without residual deficits
CPT/HCPCS: 71045; 80048; 84484; 85025; 93005; 99284; A4216

== ENCOUNTER → 2021-11-24 | Outpatient (CLI) | payer MEDICARE, MEDICAID, SELFPAY ==
[2017-10-06 13:03] VITALS: BMI 22.4
--- NOTE | 2021-11-24 16:23 | RAD_ITS ---
STUDY: X-RAY CHEST REASON FOR EXAM: Male, 66 years old. CP TECHNIQUE: PA and lateral views of the chest. 10/29/2021 COMPARISON: None. FINDINGS: There is hyperinflation of the lungs consistent with chronic obstructive lung disease (COPD). No acute airspace disease. Subtle blunting of the left costophrenic angle is likely stable. Sternal cerclage wires are present from a prior sternotomy. Heart size is within normal limits. Normal mediastinum and mariluz. Normal visualized pulmonary arteries. Normal visualized aortic arch and descending thoracic aorta. Normal visualized thoracic spine. Normal visualized ribs, clavicles, and shoulders. There is no demonstrated abnormality of the visualized soft tissue structures of the upper abdomen. RAD/Chest PA and Lateral IMPRESSION: Stable COPD without acute airspace disease. Electronically Signed: Eddie Chen DO at 5:41 EDT ,
== END | disposition home or self-care (01) ==
LOC: RAD 16:10
PROVIDERS: PCP Internal Medicine; Referring Provider Physician Assistant Medical; Visit Provider Physician Assistant Medical
DX: R07.9 Chest pain, unspecified (principal)
CPT/HCPCS: 71046

== ENCOUNTER → 2021-12-11 | Outpatient (CLI) | payer MEDICARE, MEDICAID, SELFPAY ==
[2017-10-06 13:03] VITALS: BMI 22.4
--- NOTE | 2021-12-11 13:32 | PCM.CR.HP2 ---
CR - History & Physical - General Arrival date:: 12/11/21 Arrival time:: 01:30 Date of Referral:: 11/24/21 Date of CR Evaluation:: 12/11/21 Referring Physician: Dr. Zaki Morin Primary Diagnosis: CABG - History of Present Cardiac Event Onset Date: Enter Onset Date of cardiac illnesses in Comment field below Acute Myocardial Infarction within 12 months:: Yes - Coronary Artery Bypass Graft:: Yes - 3 x vessel Vessel: RIBEIRO to LAD, SVG to Diagonal2, ELIEL to diagonal 1. PTCA or coronary stenting:: Yes - Dr. Doherty 2017 Type of Symptoms:: Not good informative Were there any complications?: Arterial bleed returned to OR; required blood transfusion, atrial fib. - Sleep Disorder Evaluation Hx of Sleep Apnea: No Do you snore loudly (louder than talking or can be heard through closed doors)?: No Do you often feel tired/ fatigued/ sleepy during daytime?: Yes Has anyone observed you stop breathing during sleep?: No History of Hypertension (for STOP score): Yes - infrequent sleep pattern, up & down all night STOP Results: Positive - Medications Home Medications: Ambulatory Orders Medication Instructions Recorded atorvastatin 40 mg tablet 40 mg PO QHS #30 tabs 05/27/21 nitroglycerin 0.4 mg sublingual 0.4 mg sublingual Q5-15M PRN chest 06/02/21 tablet (Nitrostat) pain #25 tabs primidone 50 mg tablet 75 mg PO BID tremor #90 tabs 08/11/21 cyclobenzaprine 5 mg tablet 5 mg PO TID PRN muscle spasm #20 09/09/21 tabs ascorbate calcium (vitamin C) 500 500 mg PO DAILY 10/07/21 mg tablet thiamine HCl (vitamin B1) 100 mg 100 mg PO TID 10/07/21 tablet amiodarone 200 mg tablet 200 mg PO DAILY #90 tabs 10/21/21 aspirin 81 mg tablet,delayed 81 mg PO DAILY #90 tabs 10/21/21 release (Adult Aspirin Regimen) clopidogrel 75 mg tablet (Plavix) 75 mg PO DAILY #90 tabs 10/21/21 ferrous sulfate 325 mg (65 mg 325 mg PO DAILY #90 tabs 10/21/21 iron) tablet (FeroSul) folic acid 1 mg tablet 1 mg PO DAILY #90 tabs 10/21/21 lamotrigine 25 mg tablet (Lamictal) 50 mg PO BID #120 tabs 10/21/21 magnesium oxide 400 mg (241.3 mg 400 mg PO DAILY #90 tabs 10/21/21 magnesium) tablet multivitamin (Daily-Tin tablet) 1 tab PO DAILY #90 tabs 10/21/21 acetaminophen 500 mg capsule 1,000 mg PO Q6H PRN pain #120 caps 11/16/21 - Allergies Allergies/Adverse Reactions: Allergies bee venom protein (honey bee) Allergy (Severe, Verified 11/24/21 15:29) Anaphylaxis tuberculin, purified protein deriva Allergy (Verified 11/24/21 15:29) Swelling Advanced Directives - Advanced Directives Power of Injection Molding Machine Tender: No Living Will: No Advance Directives Information Provided: Yes Advance Directives on File: No DNR Order?:: No - MOLST See MOLST form: No Past Medical History - Covid-19 Screening Fever: No Unexplained muscle aches: No Current respiratory symptoms: No Upper respiratory infections symptoms: No Gastro-intestinal symptoms: No Epd-Pbyb-Crqawa symptoms: Yes Has tested positive for COVID-19 in last 30 days: No Date of testin12/11/21 - Declined vaccinations Had contact w/person w/symptoms or Covid-19 (+) last 14 days: No Has High Risk Exposures ID'd by Health dept/Inf Control team: No 65 years or older:: Yes Lives in Assisted Living facility:: No Has a chronic lung disease or moderate to severe asthma:: No Has a serious heart condition:: Yes Immunocompromised:: No Severely obese (Body Mass Index of 40 or higher):: No Diabetic:: No Has chronic kidney disease undergoing dialysis:: No Has liver disease:: No - Past Medical Illness Medical History: Past Medical History (Last Updated 11/25/21 @ 16:14 by Debbie JO, PA) Abnormal electrocardiogram R94.31 Atherosclerotic heart disease of [place] coronary artery without angina pectoris I25.10 3.0 X 32 mm Synergy LOPEZ to mid LAD; 2.5 x 16 MM Synergy LOPEZ to second diagonal per Dr. Doherty @ [facility] Atrial septal aneurysm I25.3 Chronic back pain M54.9, G89.29 CVA (cerebral vascular accident) I63.9 MCA Infarct Heart valve problem I38 History of left heart catheterization (LHC) Onset Date: ~05/27/21 Z98.890 LEFT MAIN: Angiographically normal; LEFT ANTERIOR DESCENDING ARTERY: PROX LAD: Mild luminal irregularities, near the origin of the stent: eccentric: 75 % Stenosis MID LAD: Previously placed stent is patent DIAGONAL 1: Ostial - large vessel: ostial: jailed by the stent / subtotally occluded; DIAGONAL 2: Proximal - Previously placed stent is patent; CIRCUMFLEX ARTERY: Angiographically normal; RIGHT CORONARY ARTERY: Mild luminal irregularities; AORTIC ROOT: Angiographically normal; RECOMMENDATIONS: Surgery consult for coronary revascularization per cardiac cath 05/27/21 Hyperlipidemia E78.5 Nicotine dependence F17.200 Postoperative atrial fibrillation I97.89, I48.91 Seizure R56.9 Syncope and collapse R55 - Past Surgical History Surgical History: Past Surgical History (Last Reviewed 11/24/21 @ 15:48 by Debbie JO, PA) finger surgery History of lumbar puncture Onset Date: ~04/2017 Z98.890 lymph node resection S/P triple vessel bypass Z95.1 September 21, 2021: RIBEIRO to the mid LAD, SVG to the diagonal 2, ELIEL to the diagonal 1 Stented coronary artery Onset Date: 10/06/17 Z95.5 3.0 X 32 mm Synergy LOPEZ to mid LAD; 2.5 x 16 MM Synergy LOPEZ to second diagonal per Dr. Doherty @ [facility] Surgical History: no surgical history - Family History Summary Family History: Family History (Last Reviewed 11/24/21 @ 15:48 by Debbie JO, PA) Mother Myocardial infarction Brother Myocardial infarction Social History - Smoking History Smoking Status: Current every day smoker Years Smokin Packs Smoked per Day: 2.5 Hx Tobacco Use: Yes Hx Smoking Exposure: Yes - Alcohol Use Alcohol Usage: Yes - 0-2 drinks/day (beer) since 2014. - Substance Abuse Hx Substance Use: No - Occupation Occupation (List type of work in comments):: Retired - Hobbies, Recreation, Social Activities Hobbies: Sports - fishing, camping, Other - tears down house trailers, cuts frames etc. Recreational Activities: I am able to engage in all my recreational activities Social Environment - Status Marital Status: - 2015 - Current Living Arrangements Living Environment:: Alone - Children How many children do you have?: 6 - 5 daughters, 1 son Do any of your children live nearby?: Yes - [place] Do you feel safe in your surroundings?: Yes - Assistance Do you need any assistance at home?: staying w/friends until healed Review of Systems - Review of Systems Hints: Right click = Denies (Slash). Left click = Reports ([place]) Review of Present Symptoms: Reports: Shortness of Breath at Rest, Shortness of Breath with Exertion - sometimes; especially when pusing myself to do something, Operative Discomfort - some minor discomfort incision Rates it at a 5 (tolerable), Wound Healing, Dizziness/Lightheadedness - had an episode this morning fell into chair and stove. Had a seizure two nights ago. Friend he si staying with is a Home Health RN., Fatigue, Heart Arrhythmia/Irregularities - short episode of atrial fib post operative, Appetite - Normal. Denies: Appetite - Special Diet, Sleep - Normal - infrequent sleep up & down all night, Sexual Changes - Pain Is Patient Pain Free?: Yes Pain Location: chest - incisional area/sternum from surgery, lower extremity - right leg from vein harvest. Pain Level: 5/10 Risk Factor Assessment - Chief Complaint Chief Complaint: 66 yr old male patient of Dr. Mariee who presents to CR today following a triple bypass. He did have complications following surgery with a increase chest tube output and arterial bleed which required a return to the OR. He did have blood replacement following but quickly recovered. - Vital Signs Temperature: 97.3 F Respiratory Rate: 16 Pulse Ox: 98 Blood Pressure: 115/74 - Pulse Pulse Rate: 61 Pulse Rhythm: Regular - Hypertension How long have you been treated?: 2003 Blood Pressure Sitting - Left Arm: 115/74 - Blood Cholesterol/Lipids Total Cholesterol (mg/dL) Goal = less than 200 mg/dL: 189 HDL Cholesterol (mg/dL) Goal = less than 40 mg/dL: 45 LDL Cholesterol (mg/dL) Goal = less than 70 mg/dL: 115 Triglycerides (mg/dL) Goal = less than 150 mg/dL: 147 - Obesity Height: 5 ft 8 in Weight:: 136 lb Weight in Pounds: 136.0 lbs Weight Source: Estimated by Patient Body Mass Index (BMI): 20.7 Nutritional Referral for Obesity: Yes - Medical Nutrition Therapy - Physical Inactivity Physical Inactivity: Recreational activity - walking and helping senior investment manager around the park - Risk Stratification Risk Guidelines: Lowest Risk: Risk Factor for Diabetes, Risk Factor for Obesity, Risk Factor for Hypertension - controlled, Risk Factor for Sedentary Lifestyle - tries to keep active, sits < 3 hours, Moderate Risk: Risk Factor for Dyslipidemia, Highest Risk: Risk Factor for Smoking - Family History Family History: Family History (Last Reviewed 11/24/21 @ 15:48 by Debbie Madison PA, PA) Mother Myocardial infarction Brother Myocardial infarction Motivation - Motivation to Participate On a scale of 1 to 10, how prepared are you to commit to attending program?: 10 What do you see as barriers to successfully being able to complete the program?: No What do you see as the benefits of succesfully completing the program? In other words, what do you hope to get out of participating in the program?: Getting normal activity, Are there issues you are dealing with that will interfere with completing the program?: no Do you have a spouse or signficant other, family or friends who will help support you to complete the program?: Yes
--- NOTE | 2021-12-11 13:33 | CR.ITP_ITS ---
Diagnosis - General Information Admitting Diagnosis: S/P CABG Secondary Diagnosis: Stents 10/06/2017, hypertension, hyperlipidemia previous CVA w/essential tremors. Personal Learning Style:: Audio/Visual, Written Barriers to Learning: No Barriers Stage of change r/t lifestyle modifications:: Action Gave educational material for:: Treating Heart Disease, Emotions & Heart Disease, Stress Management & Relaxation, Sleep Disorders & Heart Disease, How The Heart Works, What it means to have Heart Disease, How Coronary Artery Disease is Diagnosed, Heart Procedures, What Heart Medications Do, Risk Factors & Modifications, Living an Active Life, Nutrition - Education/Goals Individual Counseling: Initial Assessment: Nicotine/Smoking - Patient declined SMoking Cessation, Abnormal Cholesterol Levels, High Blood Pressure Cardiac Rehabilitation Goals: 1. Maintain the individual as the primary focus of care. 2. To improve the patient's quality of life. 3. Identification of cardiac risk factors and provide cardiac risk factor management. 4. Enhance the psychosocial status of the patient. 5. Reconditioning enough to allow the p atient to resume customary activities. 6. Control symptoms of cardiac disease Personal Goals: Initial Assessment: Improve management of stress and emotions, Participate in home exercise program, Get back to work, or to resume activities faster, Improve muscle strength and endurance, Control risk factors (learn risk factor modification) Scale for measuring improvement of personal goals: Enter appropriate number in Comments. 2 = Unchanged. 3 = Slightly Better. 4 = Moderate Improvement. 5 = Met my Goal - Diagnosis & Disease Process Outcomes/Goals: Pt IDs own risk factors & lifestyle modifications by Session 10, Verbalizes symptoms of angina & response by session 3., Pt independently manages Plan/Interventions: Assist Pt to ID & engage in lifestyle modification to reduce CVD risk, Instruct on individual risk factors, Review symptoms of angina & emergency actions, Review secondary diagnosis & identify educational needs. - Safety Referral to Physical Therapy: No Referral to [facility] Case Management: No Fall Risk Assessed:: Yes Assistive Devices:: None Exercise - Initial Assessment - Visit Date of Eval: 12/11/21 Session #:: 0 - Pre-cardiac rehab evaluation Mets: Pre-: >7 METS for 30 minutes by discharge - Physician Prescribed Exercise Modalities: Treadmill, Airdyne, NuStep Frequency: 3x/week for 12 weeks [36 sessions] Intensity: 60-80% of age predicted maximum heart rate reserve Duration: 30 - 45 minutes Target Heart Rate:: 100-130 Resting Blood Pressure: 115/74 EKG Type: NSR Current Physical Activity or Exercising minutes: sits less than 3 hours daily - Outcomes & Goals Goals:: Verbalizes understanding of THR, RPE & goal METS by session 6, Documents in home exercise log/reports 30 min aerobic 5 day/wk by DC, Demonstrates accurate pulse taking by DC - Intervention & Plan Exercise Program Goals: Instruct on personal THR & RPE, Instruct on MET level & personal MET goal, Show patient to take own pulse /validate performance until accurate, Instruct on home exercise - Physical Activity Home Exercise Physical Activity - Home Exercise: Safe Exercise, Warm-up, Self-monitoring, Cool-Down, Home Exercise > 30 min Daily, Sitting Time <3 hours/daily - Outcomes & Goals Outcomes/Goals: Demonstrates correct Warm-up/exercise Cool-Down (S3) if = 2.5 METs, Verbalizes symptoms of exercise intolerance by Session 3 (S3), Demonstrate safe equipment use (S3) & follows exercise prescrition (6) - Intervention & Plan Plan/Intervention: Instruct warm-up & cool-down if exercising at > 2 METs, Instruct on symptoms of exercise intolerance & actions to take, Instruct & monitor on saf, Assess intial functional capacity & safety risk Nutrition - Initial Assessment - Program Goals Nutrition Program Goals: LDL <100 optimal. 100 - 129 Near optimal. 130 - 159 Borderline High. 160 - 189 High. Total Cholesterol <200 desirable. 200 - 239 Borderline High. >/= 240 High. HDL < 40 Low >/=60 High. Triglycerides <150 desirable. <199 optimal. VlDL 5 - 40. HgbA1C <7%. BMI <25 Patient has diagnosis of Hyperlipidemia (ICD E78)?: Yes - Visit Date of Assessment:: 12/11/21 Session #:: 0 - pre-cardiac rehab evaluation - Cholesterol/Lipids (Other Core Measures) Triglycerides (mg/dL): 147 Total Cholesterol (mg/dL): 189 LDL Cholesterol (mg/dL): 115 HDL Cholesterol (mg/dL): 45 Determine presence & major risk factors that modify LDL goal: Cigarette smoking, Hypertension or hypertensive medication, Family history of premature CHD in Male < 55 years: female <65 yearsFa, Age men > 45 years; women >/= 55 years Outcomes/Goals: Pt IDs own risk factors & lifestyle modifications by Session 10, Verbalizes symptoms of angina & response by session 3., Pt independently manages Intervention/Plan: Instruct on personal lipid levels & lipid goals/NCEP guidelines, Instruct on cholesterol Referral to dietitian:: Yes - Medical Nutrition Therapy - Diabetes (Other Core Measures) Diabetes Type: Not Applicable - Weight Mgt (Other Care) Not Applicable: Yes Height: 5 ft 8 in Weight:: 136 lb BMI: 20.7 Diagnosis Overweight/Obesity BMI> 30% ICD-10 E66: No Diagnosis High BMI/Morbid Obesity BMI> 35% ICD-10 Z68: No Outcomes/Goals: Pt sets, maintains & shows weight loss goal & trend during rehab Intervention/Plan: Instruct on ideal BMI & set weight loss goal w/patient - Healthy Eating Habits Will attend diet classes:: Yes Outcomes/Goals:: Consume diet rich in vegs,fruits,whole grain/high fiber,fish,lean meat, Limit sat/trans fats,cholesterol & added salts & sugars Intervention/Plan:: Assess current eating habits - Education Gave educational materials for:: Healthy eating Nutrition - 30-Day Assessment Nutrition - 60-Day Assessment Nutrition - 90-Day Assessment Nutrition - Final Assessment Core - Initial Assessment - Visit Date of Eval: 12/11/21 Session #:: 0 - pre-cardiac rehab evaluation - Medication Compliance Preventative Medication(s):: Aspirin, RENY inhibitor, Clopidogrel/P2Y12 inhibit, Statin/lipid, Beta millie Outcomes/Goals: Verbalizes medications,desired effect & common side effects @ DC, Pt self-reports following medication regimen, Keeps card in wallet w/medications listed by DC Interventions/plans: Instruct on medication effects & side effects, Review medication list w/patient every two weeks, Instruct importance of taking meds as ordered & assist problem solving - Tobacco Use Tobacco Use: Cigarettes How many cigarettes do you smoke per day?: 1.0 Years Smokin Do you use smokeless tobacco?: No - Patient stated he has no plan to quit and denied smoking cessation program. Core - 30-Day Assessment Core - 60-Day Assessment Core - 90 Day Assessment Core - Final Assessment Psychosocial - Initial Assess - VIsit Date of Eval: 12/11/21 Session #:: 0 - Pre-cardiac rehab evaluation History of Emotional Disorders: Depression Self-reported stressors: Medical/Health - Psychosocial Test Tool Used:: [employer] QOL Cardiac, PHQ-9 Questionnaire phq-9 Severity: Severity. 1-4 Minimal Depression. 5-9 Mild Depression. 10-14 Moderate Depression. 15-19 Moderately Sever Depression. 20-27 Severe Depression. Rule: - Referral to Behavioral Health PS - Interventions: Yes Attend Stress Management Classes, No Referral to Behavioral Health if PHQ-9 score >9:, No Referral to [facility], No Referral to Physician if PHQ-9 if score is 5-9: - Outcomes/Goals: See list Psychosocial Outcomes/Goals:: ID's personal stressors & 2 strategies to manage stress by discharge - Intervention/Plan: See List Interventions/Plan:: Assess stressors,coping strategies & signs of derpression on admission, Instruct/assist pt to develop coping & personal stress Mgt strategies, Instruct patient to recognize signs & symptoms of depression, In struct patient to recog Psychosocial - 30-Day Assess Psychosocial - 60-Day Assess Psychosocial - 90-Day Assess Psychosocial - Final Assessmen Patient Health Questionnaire Initial Assessment 1. Little interest or pleasure in doing things: Several days 2. Feeling down, depressed, or hopeless: Nearly every day 3. Trouble falling or staying asleep, or sleeping too much: Nearly every day 4. Feeling tired or having little energy: Not at all 5. Poor appetite or overeating: More than half the days 6. Feeling bad about yourself -- or that you are a failure or have let yourself or your family down: Not at all 7. Trouble concentrating on things, such as reading the newspaper or watching television: Not at all 8. Moving or speaking so slowly that other people could have noticed. Or the opposite - being so fidgety or restless that you have been moving around a lot more than usual: Not at all 9. Thoughts that you would be better off , or of hurting yourself in some way: Not at all How difficult have these problems made it for you to do your work, take care of things at home, or get along with other people?: Not difficult at all Total Score: 9 ROSSI-Q SV Test - Statements CAD is a disease of the arteries in the heart: I Don't Know Examples of risk factors for heart disease: I Don't Know Angina is chest pain or discomfort: I Don't Know The benefits of resistance training include: I Don't Know Eating more meat and dairy products: True Anti-platelet medications such as aspirin are important: I Don't Know The only effective way to manage stress: False An exercise warm-up slowly increases heart rate: I Don't Know Prepared, processed foods usually have high sodium: I Don't Know Depression is common after a heart attack: I Don't Know The statin medications lower cholesterol: I Don't Know To control blood pressure, lower the amount of sodium: I Don't Know If someone gets chest discomfort during walking: False Transfats are partially hydrogenated vegetable oils: I Don't Know Sleep apnea that is not treated increases the risk: I Don't Know To control cholesterol, one should become a vegetarian: False Someone knows if he/she is exercising at the right level: I Don't Know Diabetes cannot be prevented with exercise & health eating: I Don't Know Stress is a large risk for heart attack: I Don't Know A diet that can help lower blood pressure is rich in: I Don't Know - Total Score Total Correct Responses: 3 Self-Efficacy Initial Assessment We would like to know how confident you are in doing certain activities. Please select your confidence level for:: Select your confidence level for the following using the scale 1-10 where 1 is not at all confident and 10 is totally confident. Your score is the average of all 6 responses. Fatigue: How confident are you that you can keep the fatigue caused by your disease from interfering with the things you want to do? Select Number: 7 Physical Discomfort or Pain: How confident are you that you can keep the physical discomfort or pain of your disease from interfering with the things you want to do? Select Number: 5 Emotional Distress: How confident are you that you can keep the emotional distress caused by your disease from interfering with the things you want to do? Select Number: 5 Other Symptoms or Health Problems: How confident are you that you can keep other symptoms or health problems from interfering with the things you want to do? Select Number: 5 Different Tasks and Activities: How confident are you that you can do the different tasks and activities needed to manage your health condition so as to reduce your need to see a doctor? Select Number: 5 Medication: How confident are you that you can do things other than just taking medication to reduce how much your illness affects your everyday life? Select Number: 8 Total Score:: 5 Nutrition Survey - Nutrition Survey Initial Have you lost >10 lbs over the past 2 months without trying?: No Are you following a special diet at home for diabetes, low fat, or low salt?: No Are you interested in meeting with a dietitian for help understanding your diet?: No Do you eat less than 3 meals a day?: Yes Do you eat fatty meats (law, sausage, ribs, etc), fried foods, desserts, large amounts of salad dressings, margarine, butter, or cheese most days?: No Do you have food allergies? [Enter types in comment field]: No Do you eat in restaurants more than 3 times a week?: No Do you season food with salt, seasoning salt, or garlic salt?: Yes Do you used canned, boxed, frozen meals, or soups, seasoning packets?: No Total Score:: 2
[2021-12-11 14:36] VITALS: BP 115/74; PULSE 61; RESP 16; TEMP 36.3; O2SAT 98; BMI 20.7
[2021-12-11 15:01] VITALS: BP 115/74; BMI 20.7
== END | disposition home or self-care (01) ==
LOC: CR 13:28
PROVIDERS: PCP Internal Medicine; Referring Provider Internal Medicine Cardiovascular Disease; Visit Provider Internal Medicine Cardiovascular Disease
DX: E78.5 Hyperlipidemia, unspecified (principal); Z95.1 Presence of aortocoronary bypass graft; Z86.73 Personal history of transient ischemic attack (TIA), and cerebral infarction without residual deficits

== ENCOUNTER → 2021-12-17 | Outpatient (CLI) | payer MEDICARE, MEDICAID, SELFPAY ==
[2021-12-11 15:01] VITALS: BMI 20.7
[2021-12-17 17:42] LABS: Hematocrit 42.8 % (40-54); Hemoglobin 13.9 g/dL (13.0-16.5); Mean Corp Hgb Conc 32.5 g/dL (32-36); Mean Corpuscular Hgb 30.8 pg (27.0-32.0); Mean Corpuscular Volume 94.7 fL (80-94); Platelet Count 272 K/mm3 (150-450); RBC Distribution Width CV 15.1 % (11.6-14.6); RBC Distribution Width SD 52.6 fl (35.1-43.9); Red Blood Count 4.52 M/mm3 (4.6-6.2); White Blood Count 8.1 K/mm3 (4.4-11.0)
[2021-12-17 18:03] LABS: Vitamin B12 543 pg/mL (211-911)
[2021-12-17 18:37] LABS: AST(SGOT) 27 U/L (15-37); Alanine Aminotransfer ALT/SGPT 41 U/L (16-61); Albumin, Serum 3.6 g/dL (3.2-5.0); Alkaline Phosphatase 88 U/L (45-117); Anion Gap 6 (5-15); BUN 11 mg/dL (7-18); Calcium,Total 8.8 mg/dL (8.5-10.1); Chloride 102 mmol/L (98-107); EST Glomerular Filtration Rate 79 mL/min (>60); Est Glom Filt Rate - Afr Amer 96 mL/min (>60); Ferritin 42 ng/mL (26-388); Globulin 3.6 g/dL (2.2-4.2); Glucose 89 mg/dL (74-106); Iron 113 ug/dL (65-175); Protein, Total 7.2 g/dL (6.4-8.2); Sodium Level 136 mmol/L (136-145)
[2021-12-23 08:18] LABS: Lamotrigine (Lamictal) Level 1.9 ug/mL (2.0-20.0)
== END | disposition home or self-care (01) ==
LOC: MTLAB 14:54
PROVIDERS: PCP Internal Medicine; Referring Provider Psychiatry & Neurology Neurology; Visit Provider Psychiatry & Neurology Neurology
DX: G40.909 Epilepsy, unspecified, not intractable, without status epilepticus (principal); I25.10 Atherosclerotic heart disease of native coronary artery without angina pectoris; D64.9 Anemia, unspecified; Z86.2 Personal history of diseases of the blood and blood-forming organs and certain disorders involving the immune mechanism
CPT/HCPCS: 36415; 80053; 82140; 82542; 82607; 82728; 82746; 83540; 85027

== ENCOUNTER → 2021-12-24 | Outpatient (CLI) | payer MEDICARE, MEDICAID, SELFPAY ==
[2021-12-11 15:01] VITALS: BMI 20.7
--- NOTE | 2021-12-24 14:40 | RAD_ITS ---
INDICATION: chest pain EXAMINATION/TECHNIQUE: X-RAY - XR Chest 2 Views COMPARISON: 11/24/2021. FINDINGS: LINES/DEVICES: Sternal wires are seen in position. Linear streaky opacities visualized in the right lower lung field suggestive of a subsegmental atelectatic streaks, biapical prominence and lucencies visualized in bilateral lung pineda suggestive of emphysematous changes/COPD disease. The bronchovascular markings otherwise unremarkable, no evidence of focal lung infiltrate or consolidation. No evidence of pneumothorax or pleural effusion is seen. MEDIASTINUM AND CARDIOVASCULAR STRUCTURES: Cardiac silhouette not enlarged. BONES AND SOFT TISSUES: Unremarkable. RAD/Chest PA and Lateral IMPRESSION: Suggestion of emphysematous changes/COPD disease. No evidence of acute cardiopulmonary disease is seen. Electronically Signed: Wenceslao Soria MD at 15:58 EDT ,
== END | disposition home or self-care (01) ==
LOC: RAD 14:09
PROVIDERS: PCP Internal Medicine; Referring Provider Internal Medicine; Visit Provider Internal Medicine
DX: R07.9 Chest pain, unspecified (principal); Z95.1 Presence of aortocoronary bypass graft
CPT/HCPCS: 71046

== ENCOUNTER 2022-01-01 14:30 | Outpatient (RCR) | payer MEDICARE, MEDICAID, SELFPAY ==
[2021-12-11 15:01] VITALS: BMI 20.7
== END 2022-01-01 23:59 ==
LOC: CR 14:30
PROVIDERS: PCP Internal Medicine; Referring Provider Internal Medicine Cardiovascular Disease; Visit Provider Internal Medicine Cardiovascular Disease
DX: I25.10 Atherosclerotic heart disease of native coronary artery without angina pectoris (principal); Z95.1 Presence of aortocoronary bypass graft
CPT/HCPCS: 93798

== ENCOUNTER 2022-01-13 14:30 | Outpatient (RCR) | payer MEDICARE, MEDICAID, SELFPAY ==
[2021-12-11 15:01] VITALS: BMI 20.7
--- NOTE | 2022-01-14 07:55 | PCM.CR.ITP ---
Diagnosis Exercise - 30-day Assessment - Visit Date of Eval: 01/14/22 Session #:: 12 - Physician Prescribed Exercise Modalities: Treadmill, Airdyne, NuStep Frequency: 3x/week for 12 weeks [36 sessions] Intensity: 60-80% of age predicted maximum heart rate reserve Duration: 30 - 45 minutes Current METSs:: 4.0 unchanged due to symptoms w/exercise Target Heart Rate:: 100-130 Current RPE:: 12-13 Maximum Excercise HR:: 96 Resting Blood Pressure: 94/60 Maximum Exercise Blood Pressure: 162/88 EKG Type: NSR to sinus tach with T Wave inversion noted w/exercise. Rare PACs. Current Physical Activity or Exercising minutes: 34:24 - Outcomes & Goals Goals:: Verbalizes understanding of THR, RPE & goal METS by session 6, Documents in home exercise log/reports 30 min aerobic 5 day/wk by DC, Demonstrates accurate pulse taking by DC - Intervention & Plan Exercise Program Goals: Instruct on personal THR & RPE, Instruct on MET level & personal MET goal, Show patient to take own pulse /validate performance until accurate, Instruct on home exercise - 30-day Reassessments 30 day Reassessments:: Not Met - Not able to progress exercise due to symptoms of chest pain, and changes in his EKG at this time. - Physical Activity Home Exercise Physical Activity - Home Exercise: Safe Exercise, Warm-up, Self-monitoring, Cool-Down, Home Exercise > 30 min Daily, Sitting Time <3 hours/daily - Outcomes & Goals Outcomes/Goals: Demonstrates correct Warm-up/exercise Cool-Down (S3) if = 2.5 METs, Verbalizes symptoms of exercise intolerance by Session 3 (S3), Demonstrate safe equipment use (S3) & follows exercise prescrition (6) - Intervention & Plan Plan/Intervention: Instruct warm-up & cool-down if exercising at > 2 METs, Instruct on symptoms of exercise intolerance & actions to take, Instruct & monitor on saf, Assess intial functional capacity & safety risk, Other See below - 30-day Reassessments 30 day Reassessments:: Not Met - Patient does not understand ISAK scale, reports 7 as RPE when in actuality should be a 12-14. Re-educated patient. Nutrition - Initial Assessment Nutrition - 30-Day Assessment - Program Goals Nutrition Program Goals: LDL <100 optimal. 100 - 129 Near optimal. 130 - 159 Borderline High. 160 - 189 High. Total Cholesterol <200 desirable. 200 - 239 Borderline High. >/= 240 High. HDL < 40 Low >/=60 High. Triglycerides <150 desirable. <199 optimal. VlDL 5 - 40. HgbA1C <7%. BMI <25 Patient has diagnosis of Hyperlipidemia (ICD E78)?: Yes - Visit Date of Assessment:: 01/14/22 Session #:: 12 - Cholesterol/Lipids (Other Core Measures) Triglycerides (mg/dL): 147 Total Cholesterol (mg/dL): 189 LDL Cholesterol (mg/dL): 115 HDL Cholesterol (mg/dL): 45 Determine presence & major risk factors that modify LDL goal: Cigarette smoking, Hypertension or hypertensive medication, Age men > 45 years; women >/= 55 years Outcomes/Goals: Pt IDs own risk factors & lifestyle modifications by Session 10, Verbalizes symptoms of angina & response by session 3., Pt independently manages Intervention/Plan: Instruct on personal lipid levels & lipid goals/NCEP guidelines, Instruct on cholesterol Referral to dietitian:: Yes - Medical Nutrition Therapy 30-day Reassessments:: Progressing - Diabetes (Other Core Measures) Diabetes Type: Not Applicable - Weight Mgt (Other Care) Not Applicable: Yes Height: 5 ft 8 in Weight:: 140 lb 8 oz BMI: 21.3 Diagnosis Overweight/Obesity BMI> 30% ICD-10 E66: No Diagnosis High BMI/Morbid Obesity BMI> 35% ICD-10 Z68: No Outcomes/Goals: Pt sets, maintains & shows weight loss goal & trend during rehab Intervention/Plan: Instruct on ideal BMI & set weight loss goal w/patient 30 day Reassessments:: Met - Healthy Eating Habits Will attend diet classes:: Yes Outcomes/Goals:: Consume diet rich in vegs,fruits,whole grain/high fiber,fish,lean meat, Limit sat/trans fats,cholesterol & added salts & sugars Intervention/Plan:: Assess current eating habits 30-day Reassessments:: Progressing - Education Gave educational materials for:: Healthy eating Nutrition - 60-Day Assessment Nutrition - 90-Day Assessment Nutrition - Final Assessment Core - Initial Assessment Core - 30-Day Assessment - Visit Date of Eval: 01/14/22 Session #:: 12 - Medication Compliance Preventative Medication(s):: Aspirin, Clopidogrel/P2Y12 inhibit, Statin/lipid, Beta millie H/O mental health issues: depression, anxiety, or addiction?: No Doesn?t believe in the benefits of treatment?: No Believes medications are unnecessary or harmful?: No Has a concern about medication side effects?: No Expresses concern over the cost of medications?: No Outcomes/Goals: Verbalizes medications,desired effect & common side effects @ DC, Pt self-reports following medication regimen, Keeps card in wallet w/medications listed by DC Interventions/plans: Instruct on medication effects & side effects, Review medication list w/patient every two weeks, Instruct importance of taking meds as ordered & assist problem solving 30-day Reassessments:: Progressing - Tobacco Use Tobacco Use: Cigarettes How many cigarettes do you smoke per day?: 10 - 1-PPD Years Smokin Do you use smokeless tobacco?: No Outcomes/Goals: Smoking cessation achieved or maintained by discharge, Identify aids/strategies for achieving smoking cessation by session 6 Interventions/plan: Instruct on effects of smoking & provide smoking cessation resource, Assist pt to set quit date & provide encouragement, Assist pt to develop strategies to achieve/maintain quit date, Assist pt w/nicotine replacement & medication for cessation success - Hypertension Hypertension Diagnosis:: Hypertension ICD-10 I10 Resting Blood Pressure:: 90/50 [place] [employer] Hypertension Guidelines: [place] [employer] Hypertension Guidelines. Normal BP Less than 120/80. Elevated BP 120/80. Hypertension Stage 1: BP 130-139/80-89. Hypertesnion Stage 2: BP 140 or higher/90 or higher. Hypertension Crisis: BP higher than 180/120 Peak Exercise Blood Pressure:: 162/88 Outcomes/Goals: Able to verbalize/achieve optimal blood pressure <130/80, Incorporates diet changes & exercise for blood pressure control by DC Interventions/plan: Instruct on optimal blood pressure, hypertension & medications, Instruct on effects of sodium, alcohol, stress, exercise &hypertension 30 day Reassessments:: Progressing - Tobacco Cessation Referral Smoking Cessation Referral:: Yes Individual Education/Counseling:: No Education Schedule Given:: Yes Core - 60-Day Assessment Core - 90 Day Assessment Core - Final Assessment Psychosocial - Initial Assess Psychosocial - 30-Day Assess - VIsit Date of Eval: 01/14/22 Session #:: 12 Not Applicable: No History of previous Mental disease:: Yes History of Emotional Disorders: Anxious, Depression Self-reported stressors: Financial, Recent Illness - Psychosocial Test Tool Used:: PHQ-9 Questionnaire phq-9 Severity: Severity. 1-4 Minimal Depression. 5-9 Mild Depression. 10-14 Moderate Depression. 15-19 Moderately Sever Depression. 20-27 Severe Depression. Rule: - Referral to Behavioral Health PS - Interventions: Yes Referral to Physician if PHQ-9 if score is 5-9:, Yes Attend Stress Management Classes, No Referral to Behavioral Health if PHQ-9 score >9:, No Referral to [facility] - Outcomes/Goals: See list Psychosocial Outcomes/Goals:: ID's personal stressors & 2 strategies to manage stress by discharge - Intervention/Plan: See List Interventions/Plan:: Assess stressors,coping strategies & signs of derpression on admission, Instruct/assist pt to develop coping & personal stress Mgt strategies, Instruct patient to recognize signs & symptoms of depression, Instruct patient to recog - 30-day Reassessments: 30 day Reassessments:: Progressing Psychosocial - 60-Day Assess Psychosocial - 90-Day Assess Psychosocial - Final Assessmen Patient Health Questionnaire 30-Day Re-eval Assessment 1. Little interest or pleasure in doing things: Several days 2. Feeling down, depressed, or hopeless: Nearly every day 3. Trouble falling or staying asleep, or sleeping too much: Nearly every day 4. Feeling tired or having little energy: Not at all 5. Poor appetite or overeating: More than half the days 6. Feeling bad about yourself -- or that you are a failure or have let yourself or your family down: Not at all 7. Trouble concentrating on things, such as reading the newspaper or watching television: Not at all 8. Moving or speaking so slowly that other people could have noticed. Or the opposite - being so fidgety or restless that you have been moving around a lot more than usual: Not at all 9. Thoughts that you would be better off , or of hurting yourself in some way: Not at all How difficult have these problems made it for you to do your work, take care of things at home, or get along with other people?: Somewhat difficult Total Score: 9 Self-Efficacy 30-Day Re-eval Assessment We would like to know how confident you are in doing certain activities. Please select your confidence level for:: Select your confidence level for the following using the scale 1-10 where 1 is not at all confident and 10 is totally confident. Your score is the average of all 6 responses. Fatigue: How confident are you that you can keep the fatigue caused by your disease from interfering with the things you want to do? Select Number: 7 Physical Discomfort or Pain: How confident are you that you can keep the physical discomfort or pain of your disease from interfering with the things you want to do? Select Number: 5 Emotional Distress: How confident are you that you can keep the emotional distress caused by your disease from interfering with the things you want to do? Select Number: 5 Other Symptoms or Health Problems: How confident are you that you can keep other symptoms or health problems from interfering with the things you want to do? Select Number: 5 Different Tasks and Activities: How confident are you that you can do the different tasks and activities needed to manage your health condition so as to reduce your need to see a doctor? Select Number: 5 Medication: How confident are you that you can do things other than just taking medication to reduce how much your illness affects your everyday life? Select Number: 8 Total Score:: 5 Nutrition Survey
[2022-01-14 08:08] VITALS: BP 162/88; BP 90/50; BP 94/60; BMI 21.3
== END 2022-02-01 23:59 ==
LOC: CR 14:30
PROVIDERS: PCP Internal Medicine; Referring Provider Internal Medicine Cardiovascular Disease; Visit Provider Internal Medicine Cardiovascular Disease
DX: I25.10 Atherosclerotic heart disease of native coronary artery without angina pectoris (principal); Z95.1 Presence of aortocoronary bypass graft
CPT/HCPCS: 93798

== ENCOUNTER → 2022-01-14 | Outpatient (CLI) | payer MEDICARE, MEDICAID, SELFPAY ==
[2022-01-14 08:08] VITALS: BMI 21.3
[2022-01-14 13:46] LABS: AST(SGOT) 15 U/L (15-37); Alanine Aminotransfer ALT/SGPT 26 U/L (16-61); Albumin, Serum 3.7 g/dL (3.2-5.0); Alkaline Phosphatase 89 U/L (45-117); Bilirubin, Direct 0.13 mg/dL (0.00-0.30); Cholesterol 121 mg/dL (200); Globulin 3.8 g/dL (2.2-4.2); High Density Lipoprotein 63 mg/dL; Protein, Total 7.5 g/dL (6.4-8.2); Triglycerides 73 mg/dL; Very Low Density Lipoprotein 15 mg/dL (5-40)
[2022-01-14 14:01] LABS: T4 Total, Thyroxin 9.2 ug/dL (4.5-12.1)
== END | disposition home or self-care (01) ==
LOC: LAB 12:45
PROVIDERS: Nurse Practitioner Family; PCP Internal Medicine; Referring Provider Internal Medicine Cardiovascular Disease; Visit Provider Internal Medicine Cardiovascular Disease
DX: E78.2 Mixed hyperlipidemia (principal); I25.10 Atherosclerotic heart disease of native coronary artery without angina pectoris
CPT/HCPCS: 36415; 80061; 80076; 84436; 84443

== ENCOUNTER 2022-02-03 09:23 | Outpatient (RCR) | payer MEDICARE, MEDICAID, SELFPAY ==
[2022-02-02 00:37] VITALS: BP 162/88; BP 90/50; BP 94/60
== END 2022-03-03 23:59 ==
LOC: CR 09:23
PROVIDERS: PCP Internal Medicine; Referring Provider Internal Medicine Cardiovascular Disease; Visit Provider Internal Medicine Cardiovascular Disease
DX: I25.10 Atherosclerotic heart disease of native coronary artery without angina pectoris (principal); Z95.1 Presence of aortocoronary bypass graft
CPT/HCPCS: 93798

== ENCOUNTER 2022-02-05 11:38 | Emergency (ER) | payer MEDICARE, MEDICAID, SELFPAY ==
[2022-02-05 11:40] VITALS: BP 114/72; PULSE 64; RESP 16; TEMP 36.2; O2SAT 100; BMI 20.9
--- NOTE | 2022-02-05 11:59 | CT_ITS ---
STUDY: CT BRAIN WITHOUT CONTRAST REASON FOR EXAM: Male, 66 years old. Injury RADIATION DOSAGE (If Supplied By Facility): CTDIvol = ( 44.99 ) mGy, DLP = ( 812.98 ) mGycm TECHNIQUE: Transaxial CT imaging of the brain was performed without administration of intravenous contrast material. Individualized dose optimization techniques were used for this CT. COMPARISON: Comparison is made with prior study dated 06/29/2021. FINDINGS: Extensive subcutaneous emphysema involving the facial regions bilaterally worse on the right side. The subcutaneous emphysema extends into the right side of the skull. Normal calvarium. Normal size ventricles and extra-axial spaces for the patient''s age. Stable encephalomalacia involving the right posterior parietal and occipital lobes. Normal basal ganglia and thalami. Normal brainstem. Normal cerebellum. There is no intracranial hemorrhage. There are no findings of an acute ischemic infarction. Nodular mucosal thickening along the inferior aspect of the right maxillary sinus. There is evidence of a slightly depressed fracture of the anterior wall of the right maxillary sinus. CT/Brain/Head without Contrast IMPRESSION: Stable encephalomalacia in the right posterior parietal occipital lobes. Extensive emphysema in the subcutaneous tissues worse on the right side with extension to the right scalp region. Slightly depressed fracture along the anterior wall of the right maxillary sinus. Electronically Signed: Chris Jackson MD at 12:56 EDT ,
--- NOTE | 2022-02-05 11:59 | CT_ITS ---
STUDY: CT FACIAL BONES WITHOUT CONTRAST REASON FOR EXAM: Male, 66 years old. Injury -- please scan through mandible RADIATION DOSAGE (If Supplied By Facility): CTDIvol = ( 29.38 ) mGy, DLP = ( 547.46 ) mGycm TECHNIQUE: The patient was scanned in a multi detector CT scanner. Sagittal and coronal images were reconstructed. Individualized dose optimization techniques were used for this CT. COMPARISON: None. FINDINGS: Extensive subcutaneous emphysema of the visualized cervical region extending into the facial region more prominent on the right side. Normal orbital chang and orbital contents. Normal nasal bones and anterior nasal spine. Normal facial bones. Slightly displaced fracture along the anterior wall of the right maxillary sinus. Retention cyst or polyp along the inferior aspect of the right maxillary sinus. CT/Sinus/Facial Bone IMPRESSION: Extensive subcutaneous emphysema worse on the right side. Slightly depressed fracture along the anterior wall of the right maxillary sinus. Electronically Signed: Chris Jackson MD at 12:58 EDT ,
--- NOTE | 2022-02-05 11:59 | CT_ITS ---
STUDY: CT SOFT TISSUE NECK WITHOUT CONTRAST REASON FOR EXAM: Male, 66 years old. INJURY RADIATION DOSAGE (If Supplied By Facility): CTDIvol = ( 8.44 ) mGy, DLP = ( 225.48 ) mGycm TECHNIQUE: The patient was scanned in a multi-detector CT scanner. High resolution transaxial imaging was performed without the administration of intravenous contrast material. Sagittal and coronal images were reconstructed. Individualized dose optimization techniques were used for this CT. COMPARISON: None. FINDINGS: There is extensive subcutaneous emphysema extending from the inferior aspect of the cervical region cephalad to the facial region. This is more prominent on the right side. Tiny pneumomediastinum. Normal bilateral parotid glands. 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 Normal bilateral parapharyngeal spaces. Normal bilateral carotid spaces. Normal bilateral sublingual and submandibular glands and spaces. Normal visualized nasopharynx. Normal retropharyngeal space. Normal perivertebral space. Normal visualized bilateral faucial tonsils. The visualized tongue, tongue base and oropharynx are normal. The visualized cervical lymph nodes (levels I-) are within normal size limits, and maintain normal morphology. There is no demonstrated solid or cystic mass lesion. Normal epiglottis, bilateral vallecula and hypopharynx. The pre-epiglottic and paraglottic adipose spaces are normal. Normal visualized bilateral piriform sinuses, aryepiglottic folds, vocal cords, and arytenoid-cricoid articulations. Normal subglottic trachea. Normal bilateral lobes of the thyroid gland. Normal visualized pulmonary apices. Nodular mucosal thickening of the inferior aspect of the right maxillary sinus. There is evidence of a mildly depressed fracture along the anterior wall of the right maxillary sinus. There is multilevel degenerative changes of the cervical spine. There is sclerosis of the dens as well as the C5 vertebrae. Metastatic disease should be ruled out. CT/Soft Tissue Neck without Contr IMPRESSION: Extensive subcutaneous emphysema involving the cervical region extending to the facial region worse on the right side slightly displaced fracture along the anterior wall of the right maxillary sinus. Nodular mucosal thickening at the base of the right maxillary sinus. Nodular mucosal thickening at the base of the right maxillary sinus. Sclerosis of the dens as well as the body of the C5 vertebrae. Metastatic deposits should be ruled. Electronically Signed: Chris Jackson MD at 12:53 EDT ,
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
[2022-02-05] MEDS: Amox/Clavulanate 875 MG Tablet PO (14:37)
[2022-02-05] MEDS: HYDROcodone Bitartrate/Apap 5/325 Tablet PO (14:37)
[2022-02-05] MEDS: Diphth,Pertuss(Acell),Tet Vac 0.5 ML Vial IM (14:37)
== END 2022-02-05 14:44 | disposition home or self-care (01) ==
PROVIDERS: Emergency Provider Emergency Medicine; PCP Internal Medicine; Visit Provider Emergency Medicine
DX: S02.40CA Maxillary fracture, right side, initial encounter for closed fracture (principal); I25.10 Atherosclerotic heart disease of native coronary artery without angina pectoris; E78.5 Hyperlipidemia, unspecified; F17.210 Nicotine dependence, cigarettes, uncomplicated; R60.9 Edema, unspecified; M54.9 Dorsalgia, unspecified; Z86.73 Personal history of transient ischemic attack (TIA), and cerebral infarction without residual deficits; W22.8XXA Striking against or struck by other objects, initial encounter; Z23 Encounter for immunization
CPT/HCPCS: 70450; 70486; 70490; 90471; 90715; 99283

== ENCOUNTER 2022-03-22 10:30 | Emergency (ER) | payer MEDICARE, MEDICAID, SELFPAY ==
[2022-03-22 10:30] VITALS: BP 110/84; PULSE 91; RESP 18; TEMP 36.6; O2SAT 94; BMI 20.9
--- NOTE | 2022-03-22 11:18 | EDS_ITS ---
HPI HPI - URI History of Present Illness Chief Complaint: Cold Sx Informant: patient Onset/Context/Timing Onset: Days (3) Context: Gradual Onset Timing: Continuous Quality: Pressure Location: Behind his eyes Worsened by: - (Nothing) Relieved by: - (Nothing) Associated Symptoms Associated Symptoms: Positive for Nasal Congestion, Headache, Sinus Pressure, Diarrhea, Chest Pain and Nonproductive cough; Negative for Myalgias, Nausea, Vomiting, Shortness of Breath, Hemoptysis or Productive Cough Narrative Narrative: Patient presents with cough and chest pain. That has been getting worse over the last 3 days. Patient states he has pressure behind his eyes. Patient states he feels like his head is going to explode. Patient admits to some nasal congestion. Patient states he has had some diarrhea recently. Patient admits to a cough but denies any sputum production. Patient states he has pain in his chest with coughing. Patient admits to subjective chills but denies any fevers. ROS ROS ED Constitutional Constitutional ED: Reports chills and subjective; Denies fever(s) Eyes Eyes: Denies blurry vision or change in vision ENT ENT ED: Denies rhinorrhea or sore throat Cardiovascular Cardiovascular: Reports chest pain; Denies palpitations Respiratory/Chest Respiratory/Chest: Reports cough; Denies dyspnea Gastrointestinal Gastrointestinal: Reports diarrhea; Denies nausea or vomiting Genitourinary Genitourinary ED: Denies dysuria or hematuria Musculoskeletal Musculoskeletal: Denies back pain or neck pain Integumentary Denies abscess or rash Neurologic Neurologic: Reports headache(s); Denies weakness Allergic/Immunologic Allergic/Immunologic ED: Denies mouth swelling or urticaria [facility] Medical History Abnormal electrocardiogram Atherosclerotic heart disease of [place] coronary artery without angina pectoris Atrial septal aneurysm Chronic back pain CVA (cerebral vascular accident) Heart valve problem History of left heart catheterization (LHC) (~05/27/21) Hyperlipidemia Nicotine dependence Postoperative atrial fibrillation Seizure Syncope and collapse Home Medications atorvastatin 40 mg tablet 40 mg PO QHS #30 tabs 05/27/21 [Rx Last Taken Unknown] cyclobenzaprine 5 mg tablet 5 mg PO TID PRN muscle spasm #20 tabs 09/09/21 [Rx Last Taken Unknown] thiamine HCl (vitamin B1) 100 mg tablet 100 mg PO TID 10/07/21 [History Last Taken Unknown] amiodarone 200 mg tablet 200 mg PO DAILY #90 tabs 10/21/21 [Rx Last Taken Unknow n] aspirin 81 mg tablet,delayed release (Adult Aspirin Regimen) 81 mg PO DAILY #90 tabs 10/21/21 [Rx Last Taken Unknown] clopidogrel 75 mg tablet (Plavix) 75 mg PO DAILY #90 tabs 10/21/21 [Rx Last Cecilio en Unknown] ferrous sulfate 325 mg (65 mg iron) tablet (FeroSul) 325 mg PO DAILY #90 tabs 10/21/21 [Rx Last Taken Unknown] magnesium oxide 400 mg (241.3 mg magnesium) tablet 400 mg PO DAILY #90 tabs 0 10/21/21 [Rx Last Taken Unknown] lamotrigine 25 mg tablet (Lamictal) 50 mg PO BID #120 tabs 12/17/21 [Rx Last Taken Unknown] primidone 50 mg tablet 75 mg PO BID tremor #90 tabs 12/17/21 [Rx Last Taken Unknown] nitroglycerin 0.4 mg sublingual tablet (Nitrostat) 0.4 mg sublingual Q5-15M PRN chest pain #25 tabs 01/01/22 [Rx Last Taken Unknown] multivitamin with folic acid 400 mcg tablet (Daily-Tin (with folic acid)) 1 tab PO DAILY 01/06/22 [History Last Taken Unknown] amoxicillin 875 mg-potassium clavulanate 125 mg tablet 1 tab PO BID #20 tabs 02/05/22 [Rx Last Taken Unknown] folic acid 1 mg tablet 1 mg PO DAILY 02/05/22 [History Last Taken Unknown] hydrocodone-acetaminophen 5-325mg 5mg-325mg 1 tab PO Q6H PRN pain 3 days #10 tabs 02/05/22 [Rx Last Taken Unknown] acetaminophen 500 mg capsule 1,000 mg PO Q6H PRN pain #120 caps 02/24/22 [Rx Last Taken Unknown] oseltamivir 75 mg capsule 75 mg PO BID #10 CAPSULES 03/22/22 [Rx Last Taken Unknown] Allergy/AdvReac Type Severity Reaction Status Date / Time bee venom protein (honey bee) Allergy Severe Anaphylaxis Verified 03/22/22 10:32 tuberculin, purified protein Allergy Swelling Verified 03/22/22 10:32 deriva Family History Mother Myocardial infarction Brother Myocardial infarction Surgical History finger surgery History of coronary artery bypass surgery (~09/21/21) History of lumbar puncture (~04/2017) lymph node resection S/P triple vessel bypass Stented coronary artery (10/06/17) Social History household members: family Smoking Status: Current every day smoker tobacco type: cigarettes Tobacco: How many years used: 61 Electronic Cigarette Use: not used second hand exposure: Yes alcohol intake: current alcohol intake frequency: a few times a month Alcohol type: hard liquor details: Patient reduced his alcohol intake when 'his lady passed in 2014' substance use type: does not use caffeine: Yes Type: carbonated beverages and coffee EXAM Physical Exam Const Vital Signs: 03/22/22 10:30 Temperature 97.8 F Temperature Source Temporal Pulse Rate 91 Respiratory Rate 18 Blood Pressure 110/84 H Blood Pressure Mean 92 Pulse Ox 94 Oxygen Delivery Method Room Air Positive well nourished and well developed General Appearance ED: well developed HEENT Reports moist mucous membranes Neck supple and no JVD Resp normal respiratory effort and clear to auscultation bilaterally Cardio regular rate, regular rhythm and no murmurs GI normal to inspection, nondistended, normoactive bowel sounds and non-tender Palpation: soft Extremity normal to inspection General Extremety ED: Negative for edema or tenderness General Extremity: Negative for edema Neuro oriented x3, CN's II-XII intact bilaterally and no sensory deficits noted Sensorium / Orientation: alert Motor Exam: strength 5/5 throughout Psych mental status grossly normal Skin no rashes or lesions noted MDM MDM MDM Narrative Medical decision making narrative: COVID-19 rapid antigen was obtained and was negative. Influenza a rapid antigen was obtained and was positive. Influenza B antigen was negative. Patient was advised of his findings. Patient was given a prescription for Tamiflu. Patient was instructed to drink plenty of fluids. Patient was instructed to take Tylenol or ibuprofen as needed for any pain or fevers. Patient was instructed to follow-up with his primary care physician in 5 to 7 days. Patient understood and was agreeable with the plan. All questions were answered. Discharge Plan Triage Chief Complaint: Cold Sx ED Provider: Clement Walls Dx/Rx/DC Orders Clinical Impression: Influenza A, Nicotine dependence, Essential tremor Instructions: ED Influenza (Adult) Prescriptions: New oseltamivir [oseltamivir] 75 mg capsule 75 mg PO BID Qty: 10 0RF No Action primidone 50 mg tablet 75 mg PO BID Qty: 90 5RF lamotrigine [Lamictal] 25 mg tablet 50 mg PO BID Qty: 120 5RF cyclobenzaprine 5 mg tablet 5 mg PO TID PRN (Reason: muscle spasm) Qty: 20 0RF thiamine HCl (vitamin B1) 100 mg tablet 100 mg PO TID multivitamin with folic acid [Daily-Tin (with folic acid)] 400 mcg tablet 1 tab PO DAILY folic acid 1 mg tablet 1 mg PO DAILY hydrocodone-acetaminophen 5-325 mg tablet 1 tab PO Q6H PRN (Reason: pain) 3 Days Qty: 10 0RF amoxicillin-pot clavulanate 875-125 mg tablet 1 tab PO BID Qty: 20 0RF atorvastatin 40 mg tablet 40 mg PO QHS Qty: 30 12RF amiodarone 200 mg tablet 200 mg PO DAILY Qty: 90 1RF Rx Instructions: take 200 mg daily for 5 days and 1/2 tablet there after aspirin [Adult Aspirin Regimen] 81 mg tablet,delayed release (DR/EC) 81 mg PO DAILY Qty: 90 3RF clopidogrel [Plavix] 75 mg tablet 75 mg PO DAILY Qty: 90 3RF ferrous sulfate [FeroSul] 325 mg (65 mg iron) tablet 325 mg PO DAILY Qty: 90 1RF magnesium oxide 400 mg (241.3 mg magnesium) tablet 400 mg PO DAILY Qty: 90 1RF nitroglycerin [Nitrostat] 0.4 mg tablet, sublingual 0.4 mg sublingual Q5-15M PRN (Reason: chest pain) Qty: 25 3RF Rx Instructions: do not exceed 3 doses per episode acetaminophen 500 mg capsule 1,000 mg PO Q6H PRN (Reason: pain) Qty: 120 1RF Rx Instructions: 14 day #28 Primary Care Provider: Yamilet Medina Referrals: Yamilet Medina MD [Primary Care Provider] - 5-7 Days Disposition Disposition: Home, Self Care
[2022-03-22] MEDS: Oseltamivir Phosphate 75 MG Capsule PO (11:32)
== END 2022-03-22 11:34 | disposition home or self-care (01) ==
PROVIDERS: Emergency Provider Emergency Medicine; PCP Internal Medicine; Visit Provider Emergency Medicine
DX: J10.1 Influenza due to other identified influenza virus with other respiratory manifestations (principal); G25.0 Essential tremor; E78.5 Hyperlipidemia, unspecified; R51.9 Headache, unspecified; R19.7 Diarrhea, unspecified; I25.10 Atherosclerotic heart disease of native coronary artery without angina pectoris; F17.210 Nicotine dependence, cigarettes, uncomplicated; R07.9 Chest pain, unspecified; Z20.822 Contact with and (suspected) exposure to COVID-19
CPT/HCPCS: 87428; 99283

== ENCOUNTER → 2022-04-08 | Outpatient (CLI) | payer MEDICARE, MEDICAID, SELFPAY ==
[2022-04-08 16:35] LABS: AST(SGOT) 12 U/L (15-37); Alanine Aminotransfer ALT/SGPT 24 U/L (16-61); Albumin, Serum 3.4 g/dL (3.2-5.0); Alkaline Phosphatase 87 U/L (45-117); Anion Gap 0 (5-15); BUN 13 mg/dL (7-18); Calcium,Total 9.2 mg/dL (8.5-10.1); Chloride 108 mmol/L (98-107); EST Glomerular Filtration Rate 79 mL/min (>60); Est Glom Filt Rate - Afr Amer 96 mL/min (>60); Globulin 3.5 g/dL (2.2-4.2); Glucose 94 mg/dL (74-106); Potassium 4.2 mmol/L (3.5-5.1); Protein, Total 6.9 g/dL (6.4-8.2); Sodium Level 139 mmol/L (136-145)
== END | disposition home or self-care (01) ==
PROVIDERS: PCP Internal Medicine; Referring Provider Surgery; Visit Provider Surgery
DX: K52.9 Noninfective gastroenteritis and colitis, unspecified (principal)
CPT/HCPCS: 36415; 80053

== ENCOUNTER 2022-04-10 18:22 | Emergency (ER) | payer MEDICARE, MEDICAID, SELFPAY ==
[2022-04-10 18:23] VITALS: BP 107/65; PULSE 65; RESP 15; TEMP 36.6; O2SAT 98; BMI 20.9
--- NOTE | 2022-04-10 18:51 | ED.VIS.GI ---
HPI HPI - GI History of Present Illness Chief Complaint: Abd Pain Detail of Chief Complaint: Nausea and vomiting. Cough. Informant: patient and spouse/S.O. Abdominal Pain/Flank Pain Onset: Days Context: Gradual Onset Timing: Intermittent Nausea/Vomiting/Emesis GI Symptom: Positive for Nausea and Vomiting Onset: Yesterday Severity: Mild Diarrhea/Melena/Hematochezia GI Symptom: Negative for Diarrhea, Melena or Hematochezia Associated Symptoms Associated Symptoms: Negative for Dysuria, Frequency or Hematuria Narrative Narrative: 66-year-old male history of CAD with triple bypass done in 2021. Prior stroke. History of A. fib and anemia. Also COPD. On Plavix. No blood thinners. Today he has had decreased oral intake he has not felt well for the last 3 days with a cough. He had nausea and vomiting is since resolved. No diarrhea. No melena. No dysuria. No fever. Denies any chest pain. Both he and his Had influenza 3 weeks ago. He has not been recently hospitalized. Prior similar symptoms: Yes Recent Illness/Hospitalization: No PFSH PFS Medical History Abnormal electrocardiogram Atherosclerotic heart disease of redding coronary artery without angina pectoris Atrial septal aneurysm Chronic back pain CVA (cerebral vascular accident) Heart valve problem History of left heart catheterization (LHC) (~05/27/21) Hyperlipidemia Nicotine dependence Postoperative atrial fibrillation Seizure Syncope and collapse Home Medications atorvastatin 40 mg tablet 40 mg PO QHS #30 tabs 05/27/21 [Rx Last Taken Unknown] cyclobenzaprine 5 mg tablet 5 mg PO TID PRN muscle spasm #20 tabs 09/09/21 [Rx Last Taken Unknown] thiamine HCl (vitamin B1) 100 mg tablet 100 mg PO TID 10/07/21 [History Last Taken Unknown] amiodarone 200 mg tablet 200 mg PO DAILY #90 tabs 10/21/21 [Rx Last Taken Unknown] aspirin 81 mg tablet,delayed release (Adult Aspirin Regimen) 81 mg PO DAILY #90 tabs 10/21/21 [Rx Last Taken Unknown] clopidogrel 75 mg tablet (Plavix) 75 mg PO DAILY #90 tabs 10/21/21 [Rx Last Taken Unknown] lamotrigine 25 mg tablet (Lamictal) 50 mg PO BID #120 tabs 09/15/22 [Rx Last Taken Unknown] primidone 50 mg tablet 75 mg PO BID tremor #90 tabs 12/17/21 [Rx Last Taken Unknown] nitroglycerin 0.4 mg sublingual tablet (Nitrostat) 0.4 mg sublingual Q5-15M PRN chest pain #25 tabs 01/01/22 [Rx Last Taken Unknown] multivitamin with folic acid 400 mcg tablet (Daily-Tin (with folic acid)) 1 tab PO DAILY 01/06/22 [History Last Taken Unknown] hydrocodone-acetaminophen 5-325mg 5mg-325mg 1 tab PO Q6H PRN pain 3 days #10 tabs 02/05/22 [Rx Last Taken Unknown] acetaminophen 500 mg capsule 1,000 mg PO Q6H PRN pain #120 caps 02/24/22 [Rx Last Taken Unknown] ferrous sulfate 325 mg (65 mg iron) tablet (FeroSul) 325 mg PO DAILY #90 tabs 03/30/22 [Rx Last Taken Unknown] folic acid 1 mg tablet 1 mg PO DAILY #90 tabs 03/30/22 [Rx Last Taken Unknown] magnesium oxide 400 mg (241.3 mg magnesium) tablet 400 mg PO DAILY #90 tabs 03/30/22 [Rx Last Taken Unknown] oseltamivir 75 mg capsule 75 mg PO BID 04/08/22 [History Last Taken Unknown] ondansetron 4 mg disintegrating tablet 4 mg PO Q6H PRN nausea and vomiting #10 tabs 04/10/22 [Rx Last Taken Unknown] Allergy/AdvReac Type Severity Reaction Status Date / Time bee venom protein (honey bee) Allergy Severe Anaphylaxis Verified 04/10/22 18:23 tuberculin, purified protein Allergy Swelling Verified 04/10/22 18:23 deriva Family History Mother Myocardial infarction Brother Myocardial infarction Surgical History finger surgery History of coronary artery bypass surgery (~09/21/21) History of lumbar puncture (~04/2017) lymph node resection S/P triple vessel bypass Stented coronary artery (10/06/17) Social History household members: family Smoking Status: Current every day smoker tobacco type: cigarettes Tobacco: How many years used: 61 Electronic Cigarette Use: not used second hand exposure: Yes alcohol intake: current alcohol intake frequency: a few times a month Alcohol type: hard liquor details: Patient reduced his alcohol intake when 'his lady passed in 2014' substance use type: does not use caffeine: Yes Type: carbonated beverages and coffee ROS ROS ED ROS Narrative Cough. Nausea vomiting resolved. Lightheaded. Decreased oral intake. No dysuria. No diarrhea. Review of Systems ROS Unobtainable: Denies due to encephalopathy Constitutional Constitutional ED: Denies chills or fever(s) ENT ENT ED: Denies ear pain, rhinorrhea or sore throat Cardiovascular Cardiovascular: Denies chest pain or palpitations Respiratory/Chest Respiratory/Chest: Reports cough Gastrointestinal Gastrointestinal: Reports nausea and vomiting; Denies abdominal pain, constipation, diarrhea or melena Genitourinary Genitourinary ED: Denies dysuria or hematuria Musculoskeletal Musculoskeletal: Denies arthralgias Integumentary Denies abscess Neurologic Neurologic: Denies headache(s) Psychiatric Psychiatric: Denies anxiety Endocrine Endocrinology: Denies polydipsia Hematologic/Lymphatic Hematologic/Lymphatic: Denies easy bleeding Allergic/Immunologic Allergic/Immunologic ED: Denies mouth swelling EXAM Physical Exam Narrative Exam Narrative: 66-year-old male vital signs stable afebrile. Pulse ox 90% on room air no signs hypoxia. H EENT exam give dry reactive light his motions are intact. No facial droop. Normal speech. Face and scalp atraumatic nontender. Dry mucous members. No trouble swallowing or breathing. Neck nontender. No JVD. No lymphadenopathy. Lungs clear to auscultation bilaterally. Heart regular rhythm rate about 65 no murmur. Chest wall nontender. Abdomen soft nontender tender. Nondistended. Normal bowel sounds. No peritoneal signs. No right upper or right lower quadrant tenderness. No obstruction. Patient is thin. Moving all 4 extremities. Normal motor strength. Normal dorsi plantar flexion. He does have an essential tremor of his right arm which is chronic. Neurologically he is awake and alert. Answering questions. Following commands. Normal motor strength. No focal motor deficits. Const Vital Signs: 04/10/22 18:23 Temperature 97.8 F Temperature Source Temporal Pulse Rate 65 Respiratory Rate 15 Blood Pressure 107/65 Blood Pressure Mean 79 Pulse Ox 98 Oxygen Delivery Method Room Air Positive well nourished and well developed; Negative for obese, cachectic, contractures or unkempt General Appearance ED: well developed and NAD; Negative for unkempt, cachectic, contractures or pallor Nutritional Appearance: Negative for cachectic or obese HEENT Reports dry mucous membranes; Denies moist mucous membranes normocephalic and atraumatic; Negative for trauma or tenderness Mouth ED: Yes dry mucous membranes Mouth: dry mucous membranes Eyes PERRL and EOMs intact bilaterally General Eye ED: Negative for pale conjunctiva or scleral icterus Neck no lymphadenopathy, supple and no JVD General: Negative for tenderness Carotids: Negative for other Lymph Lymphatic: Negative for other Resp normal respiratory effort and clear to auscultation bilaterally Effort and Inspection: Negative for respiratory distress Auscultation: Negative for rales, rhonchi or wheezes Cardio regular rate, regular rhythm, S1 normal heart sound, S2 normal heart sound and no murmurs Rate: Negative for bradycardia or tachycardic Rhythm: Negative for abnormal rhythm GI non-tender, non-distended and no masses Inspection: Negative for abdominal distention Auscultation: normoactive bowel sounds Palpation: soft; Negative for tender, guarding, rigid, hernia, mass, pulsatile mass or rebound tenderness present Back/Spine no CVA tenderness Back/Spine Narrative: Kyphotic. Thin. Back nontender. General Back: Negative for CVA tenderness Cervical Spine: Negative for cervical spine tenderness Thoracic Spine / Upper Back: Negative for thoracic spinal tenderness Lumbar Spine / Lower Back: Negative for lumbar spinal tenderness Coccyx: Negative for other Extremity full ROM General Extremety ED: Negative for edema, tenderness or other findings General Extremity: Negative for edema or other findings Neuro CN's II-XII intact bilaterally and moves all extremities Sensorium / Orientation: alert, oriented to person, oriented to place and oriented to time; Negative for orientation impaired, confused, lethargic or stuporous Motor Exam: strength 5/5 throughout Psych mental status grossly normal and thought process normal Appearance: Negative for unkempt Attitude: No agitated Mood & Affect: Negative for depressed, anxious or tearful Skin no wounds General Skin Exam: Negative for pallor Lesions: no lesions Rashes: no rashes Trauma: Negative for abrasion Nails: Negative for discolored MDM MDM MDM Narrative Medical decision making narrative: 66-year-old male multiple. Chronic medical problems. Was nausea vomiting last several days it is resolved and now decreased oral intake. Clinically looks dehydrated will be treated with 2 L normal saline. Screening labs and chest x-ray to be obtained. Exam other than his dehydration is benign. Clinically and on think this is cardiac. I do not hear pneumonia. A chest x-ray will be obtained. Henry exam patient is complaining of worsening headache he is on Plavix and aspirin believes he is on blood thinner but I do not find it in his medication list. Also still complaining of epigastric abdominal pain reportedly was having a CT abdomen pelvis done on Tuesday trying to find that order and will get that test done also. His labs are basically unremarkable other than a slightly elevated white count. I am also going to add a lipase. Repeat exam at 10:52 PM patient doing well. I went over all his test results of both he and his family. Also his CAT scans. We discharged home outpatient follow-up. The CAT scan that was scheduled for Tuesday we did tonight and it showed no significant abnormality is some mild bladder distention but is able to urinate urinated here. He probably has some enlarged prostate issues but that does not need to be specifically addressed tonight. He can follow-up with urology with that. Patient was written for Zofran at home for nausea. Lab Data Attestation: I reviewed the patient's lab results. Lab results narrative: CBC shows a white count of 13.3. H&H 14.5 and 43. Platelets 356. CMP shows a gap of 4 normal BUN of 14 and creatinine 0.9. Liver enzymes are normal. Glucose 92. Chest x-ray is negative. Lipase 55. Labs: Laboratory Results - last 24 hr 04/10/22 04/10/22 04/10/22 18:35 18:35 18:35 WBC 13.3 H RBC 4.43 L Hgb 14.5 Hct 43.8 MCV 98.9 H MCH 32.7 H MCHC 33.1 RDW Std Deviation 46.5 H RDW Coeff of Verito 12.8 Plt Count 356 MPV 10.1 Immature Gran % (Auto) 0.300 Neut % (Auto) 43.2 L Lymph % (Auto) 41.9 H Hand % (Auto) 8.5 Eos % (Auto) 5.6 H Baso % (Auto) 0.5 Absolute Neuts (auto) 5.7 Absolute Lymphs (auto) 5.55 H Nucleated RBC % 0 Differential Comment SCANNED Atypical Lymphocytes 1+ Sodium 139 Potassium 4.3 Chloride 106 Carbon Dioxide 29.0 Anion Gap 4 L BUN 14 Creatinine 0.96 Estim Creat Clear Calc 66.11 Est GFR (MDRD) Af Amer 100 Est GFR (MDRD) Non-Af 83 BUN/Creatinine Ratio 14.5 Glucose 92 Calcium 8.9 Total Bilirubin 0.50 AST 10 L ALT 20 Alkaline Phosphatase 85 Total Protein 7.0 Albumin 3.4 Globulin 3.6 Albumin/Globulin Ratio 0.9 Lipase 55 L Radiography Diagnostic Testing: Clinical Impression(s) from Imaging Studies Chest X-Ray 04/10/22 19:00 IMPRESSION: There are no acute findings. Electronically Signed: Aubrey Adams MD at 19:17 EST , Brain CT 04/10/22 20:22 IMPRESSION: No evidence of acute intracranial hemorrhage or injury. Redemonstration of old right posterior parietal infarct. Atherosclerosis. Mild to moderate sinus disease. Electronically Signed: Elías Tamayo MD at 22:35 EST , Abdomen/Pelvis CT 04/10/22 20:24 IMPRESSION: Distended bladder. Correlate for urinary retention. Splenic sequela of prior granulomatous disease. Hepatomegaly. Moderate colonic stool burden. 1.5 cm posterior left lower lobe nodule versus atelectasis, new from prior CT. Consider 3 month follow-up chest CT or PET/CT to further evaluate as indicated. Cachectic body habitus with limited subcutaneous and intra-abdominal mesenteric fat. Electronically Signed: Elías Tamayo MD at 22:45 EST , Chest x-ray, portable, single view interpreted by myself and the radiologist shows no acute abnormality. Normal cardiac silhouette. No infiltrates. Prior sternotomy. CAT scan of the abdomen pelvis showed no acute abnormality. There is increased stool. And a distended bladder. CT of the brain showed an old right posterior parietal infarct. No acute bleed. Read by the radiologist reviewed by me. Discharge Plan Triage Chief Complaint: Abd Pain ED Provider: Ryan Kowalski Dx/Rx/DC Orders Clinical Impression: Abdominal pain, acute, epigastric, Headache, History of stroke, Nausea & vomiting Instructions: ED Abdominal Pain Unkn Cause Male... Prescriptions: New ondansetron 4 mg tablet,disintegrating 4 mg PO Q6H PRN (Reason: nausea and vomiting) Qty: 10 0RF No Action primidone 50 mg tablet 75 mg PO BID Qty: 90 5RF lamotrigine [Lamictal] 25 mg tablet 50 mg PO BID Qty: 120 5RF cyclobenzaprine 5 mg tablet 5 mg PO TID PRN (Reason: muscle spasm) Qty: 20 0RF thiamine HCl (vitamin B1) 100 mg tablet 100 mg PO TID multivitamin with folic acid [Daily-Tin (with folic acid)] 400 mcg tablet 1 tab PO DAILY oseltamivir 75 mg capsule 75 mg PO BID hydrocodone-acetaminophen 5-325 mg tablet 1 tab PO Q6H PRN (Reason: pain) 3 Days Qty: 10 0RF atorvastatin 40 mg tablet 40 mg PO QHS Qty: 30 12RF amiodarone 200 mg tablet 200 mg PO DAILY Qty: 90 1RF Rx Instructions: take 200 mg daily for 5 days and 1/2 tablet there after aspirin [Adult Aspirin Regimen] 81 mg tablet,delayed release (DR/EC) 81 mg PO DAILY Qty: 90 3RF clopidogrel [Plavix] 75 mg tablet 75 mg PO DAILY Qty: 90 3RF nitroglycerin [Nitrostat] 0.4 mg tablet, sublingual 0.4 mg sublingual Q5-15M PRN (Reason: chest pain) Qty: 25 3RF Rx Instructions: do not exceed 3 doses per episode acetaminophen 500 mg capsule 1,000 mg PO Q6H PRN (Reason: pain) Qty: 120 1RF Rx Instructions: 14 day #28 ferrous sulfate [FeroSul] 325 mg (65 mg iron) tablet 325 mg PO DAILY Qty: 90 1RF folic acid 1 mg tablet 1 mg PO DAILY Qty: 90 3RF magnesium oxide 400 mg (241.3 mg magnesium) tablet 400 mg PO DAILY Qty: 90 3RF Primary Care Provider: Yamilet Medina Referrals: Yamilet Medina MD [Primary Care Provider] - As soon as possible Activity Restrictions/Additional Instructions: Plenty of fluids and rest. Zofran as needed for nausea which may swallow dissolve on your tongue. If you are not nauseated you do not need to take it at all. Follow-up with your primary care provider. The CAT scan of your abdomen that they ordered to have be done on Tuesday we had that completed tonight. You most likely also have an enlarged prostate causing you to urinate frequently. He can follow-up with a urologist for further evaluation of that. Disposition Disposition: Home, Self Care
--- NOTE | 2022-04-10 19:00 | RAD_ITS ---
STUDY: X-RAY CHEST REASON FOR EXAM: Male, 66 years old. Cough TECHNIQUE: XR Chest 1 View COMPARISON: 12.24.21 FINDINGS: There is atherosclerotic calcification of the aortic arch with tortuosity. There are diffuse degenerative changes of the visualized thoracic spine. There is degenerative osteoarthritis of the bilateral shoulders. There is no demonstrated pleural abnormality. There are multiple median sternotomy wires. Normal size heart. Normal mediastinum and mariluz. Normal visualized pulmonary arteries. There is no demonstrated abnormality of the visualized soft tissue structures of the upper abdomen. RAD/Chest 1 View (Portable) IMPRESSION: There are no acute findings. Electronically Signed: Aubrey Adams MD at 19:17 EST ,
[2022-04-10] MEDS: Ondansetron 4 MG/2 ML Vial IV (19:07)
[2022-04-10] MEDS: 0.9% Normal Saline 1,000 ML 1000 ML IV ×2 (19:07→20:40)
[2022-04-10 19:22] LABS: Absolute Lymphocyte Count 5.55 X10^3/uL (0.83-4.51); Absolute Neutrophil Count 5.7 X10^3/uL (2.0-7.7); Basophil# 0.06 X10^3/uL; Basophil% 0.5 % (0-1); Eosinophil# 0.74 X10^3/uL; Eosinophils% 5.6 % (0-5); Hematocrit 43.8 % (40-54); Hemoglobin 14.5 g/dL (13.0-16.5); Lymphocyte # 5.55 X10^3/ul (0.83-4.51); Lymphocyte % 41.9 % (19-41); Mean Corp Hgb Conc 33.1 g/dL (32-36); Mean Corpuscular Hgb 32.7 pg (27.0-32.0); Mean Corpuscular Volume 98.9 fL (80-94); Mean Platelet Vol. 10.1 fl (6.2-12.0); Monocyte# 1.13 X10^3/uL; Monocyte% 8.5 % (0-10); NRBC Flagged by Analyzer 0 % (0-5); Neutrophil # 5.74 X10^3/uL (2.7-7.7); Neutrophil % 43.2 % (47-70); POSITIVE DIFFERENTIAL YES; POSITIVE MORPHOLOGY YES; Platelet Count 356 K/mm3 (150-450); RBC Distribution Width CV 12.8 % (11.6-14.6); RBC Distribution Width SD 46.5 fl (35.1-43.9); Red Blood Count 4.43 M/mm3 (4.6-6.2); White Blood Count 13.3 K/mm3 (4.4-11.0)
[2022-04-10 19:27] LABS: Differential Indicated SCAN CRITERIA MET
[2022-04-10 19:39] LABS: ALB/GLOB Ratio 0.9 RATIO (0.9-2.4); AST(SGOT) 10 U/L (15-37); Alanine Aminotransfer ALT/SGPT 20 U/L (16-61); Albumin, Serum 3.4 g/dL (3.2-5.0); Alkaline Phosphatase 85 U/L (45-117); Anion Gap 4 (5-15); BUN 14 mg/dL (7-18); BUN/Creat Ratio 14.5 RATIO (10-20); Calcium,Total 8.9 mg/dL (8.5-10.1); Chloride 106 mmol/L (98-107); Creatinine, Serum 0.96 mg/dL (0.70-1.30); EST Glomerular Filtration Rate 83 mL/min (>60); Est Glom Filt Rate - Afr Amer 100 mL/min (>60); Estimated Creatinine Clearance 66.11 ml/min; Globulin 3.6 g/dL (2.2-4.2); Glucose 92 mg/dL (74-106); Potassium 4.3 mmol/L (3.5-5.1); Sodium Level 139 mmol/L (136-145)
[2022-04-10 19:50] LABS: Differential Comment SCANNED
[2022-04-10 19:51] LABS: Atypical Lymphocyte 1+ %
--- NOTE | 2022-04-10 20:22 | CT_ITS ---
INDICATION: headache on plavix and aspirin EXAMINATION: CT BRAIN - CT Head or Brain W/O Contrast Injection TECHNIQUE: Multiple axial images were obtained of the head without intravenous contrast. A radiation dose optimization technique was used for this scan. IV Contrast dosage and agent: None. COMPARISON: February 05, 2022 FINDINGS: BRAIN PARENCHYMA: No intra- or extra-axial hemorrhage. Encephalomalacia right frontotemporal junction is again noted from prior infarct. No intracranial mass or mass effect. Otherwise unremarkable white matter for age with preservation of the miguel/white matter interface. Posterior fossa structures are unremarkable. Mild carotid atherosclerosis. CSF SPACES: Cerebral volume appropriate for age. No hydrocephalus. Basal cisterns are patent. CALVARIUM, SKULL BASE, PARANASAL SINUSES AND MASTOID AIR CELLS: No acute osseous finding. Mild to moderate scattered paransal sinus mucoperisteal thickening. Mastoid air cells are clear. ORBITS: Both globes, extraocular muscles, optic nerves and retrobulbar fat appear unremarkable. ASPECTS Score for Acute Strokes: 10 CT/Brain/Head without Contrast IMPRESSION: No evidence of acute intracranial hemorrhage or injury. Redemonstration of old right posterior parietal infarct. Atherosclerosis. Mild to moderate sinus disease. Electronically Signed: Elías Tamayo MD at 22:35 EST Reading Location ID and State: [facility] / [place] Tel , Service support ,
--- NOTE | 2022-04-10 20:24 | CT_ITS ---
INDICATION: epigastric abd pain EXAMINATION: CT ABDOMEN AND PELVIS WITH CONTRAST - CT Abdomen And Pelvis W/ Contrast Injection TECHNIQUE: Helically acquired images were obtained of the abdomen and pelvis following IV contrast. A radiation dose optimization technique was used for this scan. IV Contrast dosage and agent: 100 mL [id number] Oral contrast: None. COMPARISON: July 04, 2021 FINDINGS: LOWER CHEST: 1.5 cm nodule or atelectasis posterior left lower lobe axial image 21, new from July 04, 2021. No cardiomegaly or pericardial effusion. Partially seen coronary atherosclerosis. LIVER: Hepatomegaly. No discrete hepatic mass appreciated. Portal vein is patent.. GALLBLADDER AND BILIARY TREE: No calcified gallstones. No gallbladder distension or wall edema. No intra- or extrahepatic biliary ductal dilation. PANCREAS: No focal cystic or solid mass. SPLEEN: Calcified sequela of prior granulomatous disease.. ADRENAL GLANDS: No nodules. KIDNEYS AND URETERS: Normal renal size and position. No hydronephrosis. PERITONEUM: No ascites or free air. No other fluid collection. BOWEL: No evidence of acute appendicitis. No stomach or bowel distension. Moderate colonic stool burden. No focal inflammatory change. LYMPH NODES: No enlarged mesenteric or retroperitoneal lymph nodes. VESSELS: Scattered atherosclerosis. No gross aneurysmal dilatation. No dissection. URINARY BLADDER: Distended with thin wall and no surrounding inflammation. ABDOMINAL WALL: No discrete abdominal or pelvic wall hernia. Cachectic appearance with general paucity of subcutaneous and intra-abdominal fat BONES: No lytic or blastic abnormality. Partially seen sternotomy changes. CT/Abdomen/Pelvis W IV Cont ONLY IMPRESSION: Distended bladder. Correlate for urinary retention. Splenic sequela of prior granulomatous disease. Hepatomegaly. Moderate colonic stool burden. 1.5 cm posterior left lower lobe nodule versus atelectasis, new from prior CT. Consider 3 month follow-up chest CT or PET/CT to further evaluate as indicated. Cachectic body habitus with limited subcutaneous and intra-abdominal mesenteric fat. Electronically Signed: Elías Tamayo MD at 22:45 EST Reading Location ID and State: [facility] / [place] Tel , Service support ,
[2022-04-10 21:03] LABS: Lipase 55 U/L (73-393)
[2022-04-10 23:37] VITALS: PULSE 69; RESP 18; O2SAT 98
== END 2022-04-10 23:39 | disposition home or self-care (01) ==
PROVIDERS: Emergency Provider Emergency Medicine; PCP Internal Medicine; Visit Provider Emergency Medicine
DX: R11.2 Nausea with vomiting, unspecified (principal); J44.9 Chronic obstructive pulmonary disease, unspecified; Z86.73 Personal history of transient ischemic attack (TIA), and cerebral infarction without residual deficits; R10.13 Epigastric pain; M54.9 Dorsalgia, unspecified; I25.10 Atherosclerotic heart disease of native coronary artery without angina pectoris; R51.9 Headache, unspecified; E78.5 Hyperlipidemia, unspecified
CPT/HCPCS: 70450; 71045; 74177; 80053; 83690; 85025; 96361; 96374; 99283; J7030; Q9967; A4216; J2405

== ENCOUNTER 2022-04-11 15:13 | Emergency (ER) | payer MEDICARE, MEDICAID, SELFPAY ==
[2022-04-11 15:14] VITALS: BP 113/72; PULSE 63; RESP 19; TEMP 36.3; O2SAT 97; BMI 22.2
[2022-04-11 15:19] VITALS: BP 113/72; PULSE 63; RESP 18; TEMP 36.5; O2SAT 95
--- NOTE | 2022-04-11 15:39 | EDS_ITS ---
HPI History of Present Illness Chief Complaint: Seizure Detail of Chief Complaint: History of seizures. Had approximately a 4-minute seizure today at home. Informant: family Onset/Context/Timing Onset: Today Context: Sudden Onset Timing: Intermittent Current Severity: Gone Maximum Severity: Moderate Narrative Narrative: 66-year-old male extensive past medical history of A. fib, CABG, CAD with cardiac stent. Prior stroke. He is on aspirin Plavix. He has a chronic essential tremor of his right upper extremity. Patient's had seizures in the past at one time he was treated with Keppra but they took him off of that. He was actually evaluated actually saw him last night in the ER he had several complaints one being a headache one being abdominal pain. He had been extensively worked up without any significant findings. A CAT scan of his head and abdomen. The CAT scan of his brain showed an old prior stroke which they knew he had. This is the fifth time he is ever had a seizure. Prior similar symptoms: Yes Recent Illness/Hospitalization: No [facility] Medical History Abnormal electrocardiogram Atherosclerotic heart disease of [place] coronary artery without angina pectoris Atrial septal aneurysm Chronic back pain CVA (cerebral vascular accident) Heart valve problem History of left heart catheterization (LHC) (~05/27/21) Hyperlipidemia Nicotine dependence Postoperative atrial fibrillation Seizure Syncope and collapse Home Medications atorvastatin 40 mg tablet 40 mg PO QHS #30 tabs 05/27/21 [Rx Last Taken Unknown] thiamine HCl (vitamin B1) 100 mg tablet 100 mg PO TID 10/07/21 [History Last Taken Unknown] aspirin 81 mg tablet,delayed release (Adult Aspirin Regimen) 81 mg PO DAILY #90 tabs 10/21/21 [Rx Last Taken Unknown] clopidogrel 75 mg tablet (Plavix) 75 mg PO DAILY #90 tabs 10/21/21 [Rx Last Taken Unknown] lamotrigine 25 mg tablet (Lamictal) 50 mg PO BID #120 tabs 12/17/21 [Rx Last Taken Unknown] primidone 50 mg tablet 75 mg PO BID tremor #90 tabs 12/17/21 [Rx Last Taken Unknown] multivitamin with folic acid 400 mcg tablet (Daily-Tin (with folic acid)) 1 tab PO DAILY 01/06/22 [History Last Taken Unknown] acetaminophen 500 mg capsule 1,000 mg PO Q6H PRN pain #120 caps 02/24/22 [Rx Last Taken Unknown] ferrous sulfate 325 mg (65 mg iron) tablet (FeroSul) 325 mg PO DAILY #90 tabs 03/30/22 [Rx Last Taken Unknown] folic acid 1 mg tablet 1 mg PO DAILY #90 tabs 03/30/22 [Rx Last Taken Unknown] magnesium oxide 400 mg (241.3 mg magnesium) tablet 400 mg PO DAILY #90 tabs 03/30/22 [Rx Last Taken Unknown] ondansetron 4 mg disintegrating tablet 4 mg PO Q6H PRN nausea and vomiting #10 tabs 04/10/22 [Rx Last Taken Unknown] amiodarone 200 mg tablet 100 mg PO DAILY 04/11/22 [History Last Taken Unknown] Allergy/AdvReac Type Severity Reaction Status Date / Time bee venom protein (honey bee) Allergy Severe Anaphylaxis Verified 04/11/22 15:19 tuberculin, purified protein Allergy Swelling Verified 04/11/22 15:19 deriva Family History Mother Myocardial infarction Brother Myocardial infarction Surgical History finger surgery History of coronary artery bypass surgery (~09/21/21) History of lumbar puncture (~04/2017) lymph node resection S/P triple vessel bypass Stented coronary artery (10/06/17) Social History household members: family Smoking Status: Current every day smoker tobacco type: cigarettes Tobacco: How many years used: 61 Electronic Cigarette Use: not used second hand exposure: Yes alcohol intake: current alcohol intake frequency: a few times a month Alcohol type: hard liquor details: Patient reduced his alcohol intake when 'his lady passed in 2014' substance use type: does not use caffeine: Yes Type: carbonated beverages and coffee ROS ROS ED ROS Narrative Nausea. On Zofran. Review of Systems ROS Unobtainable: Denies due to encephalopathy Constitutional Constitutional ED: Denies chills or fever(s) Eyes Eyes: Denies blurry vision ENT ENT ED: Denies ear pain Cardiovascular Cardiovascular: Denies chest pain Respiratory/Chest Respiratory/Chest: Denies cough Gastrointestinal Gastrointestinal: Reports abdominal pain Genitourinary Genitourinary ED: Reports other Details: Epigastric abdominal pain evaluated for emergency department yesterday with a CAT scan and labs. ; Denies dysuria or hematuria Musculoskeletal Musculoskeletal: Denies arthralgias Integumentary Denies abscess or Abrasions Neurologic Neurologic: Denies headache(s) Psychiatric Psychiatric: Denies anxiety Endocrine Endocrinology: Denies cold intolerance Hematologic/Lymphatic Hematologic/Lymphatic: Reports none Allergic/Immunologic Allergic/Immunologic ED: Denies mouth swelling or tongue swelling EXAM Physical Exam Narrative Exam Narrative: 66-year-old male. Vital signs stable afebrile. Pulse ox 97% room air no hypoxia. He is in no distress. He is not seizing. Currently does not appear postictal. H EENT exam unremarkable atraumatic. Pupils round reactive light. No facial droop. Normal speech. Neck nontender no lymphadenopathy. Lungs clear to auscultation bilaterally. Heart sinus rhythm rate about 63 no murmur. Chest wall nontender. Abdomen soft nontender. Back nontender. Moving all 4 extremities. He has an essential tremor of the right upper extremity. He has bilateral grader marker strength. Bilateral dorsi plantar flexion. Neurologically is awake and alert. Answering questions and following commands. Const Vital Signs: 04/11/22 15:14 04/11/22 15:19 04/11/22 16:19 Temperature 97.3 F L 97.7 F L 97.8 F Temperature Source Temporal Temporal Temporal Pulse Rate 63 63 65 Respiratory Rate 19 H 18 16 Blood Pressure 113/72 113/72 111/69 Blood Pressure Mean 85 85 83 Pulse Ox 97 95 98 Oxygen Delivery Method Room Air Room Air Room Air 04/11/22 17:00 Temperature 98.1 F Temperature Source Temporal Pulse Rate 64 Respiratory Rate 15 Blood Pressure 101/65 Blood Pressure Mean 77 Pulse Ox 97 Oxygen Delivery Method Room Air Positive well nourished and well developed; Negative for obese, cachectic, contractures or unkempt General Appearance ED: well developed and NAD; Negative for unkempt, cachectic, contractures, cyanotic, diaphoretic or pallor Nutritional Appearance: Negative for cachectic or obese HEENT Reports moist mucous membranes; Denies dry mucous membranes Negative for trauma or tenderness Mouth ED: No dry mucous membranes Mouth: No dry mucous membranes Eyes PERRL and EOMs intact bilaterally General Eye ED: Negative for pale conjunctiva, scleral icterus or other Neck no lymphadenopathy, supple and no JVD General: Negative for tenderness Lymph Lymphatic: Negative for other Chest Wall inspection of chest normal and palpation of chest normal Chest: Negative for other Resp normal respiratory effort and clear to auscultation bilaterally Effort and Inspection: Negative for retractions Auscultation: Negative for rales, rhonchi or wheezes Cardio regular rhythm, S1 normal heart sound, S2 normal heart sound and no murmurs Palpation: Negative for palpable S3 Rate: Negative for bradycardia Rhythm: Negative for abnormal rhythm GI normal to inspection, nondistended, normoactive bowel sounds, non-tender, non- distended and no masses Inspection: Negative for abdominal distention Palpation: soft; Negative for tender or guarding Back/Spine no CVA tenderness General Back: Negative for CVA tenderness Cervical Spine: Negative for cervical spine tenderness Thoracic Spine / Upper Back: Negative for thoracic spinal tenderness Lumbar Spine / Lower Back: Negative for lumbar spinal tenderness Extremity normal to inspection General Extremety ED: Negative for edema or tenderness General Extremity: Negative for edema Neuro oriented x3 and CN's II-XII intact bilaterally Sensorium / Orientation: alert; Negative for orientation impaired, lethargic or stuporous Motor Exam: strength 5/5 throughout Psych mental status grossly normal Appearance: Negative for unkempt Attitude: No agitated Mood & Affect: Negative for depressed, anxious or tearful Skin no rashes or lesions noted, no wounds and skin turgor normal General Skin Exam: elasticity normal; Negative for jaundice or pallor Lesions: No lesion noted Rashes: No rashes noted Trauma: Negative for abrasion Wounds: Negative for wounds noted MDM MDM MDM Narrative Medical decision making narrative: 66-year-old male reported seizure at home today. Exam benign. An extensive work-up last night for complaints of headache and abdominal pain all of which is basically baseline for him. I do not think he needs reimaged. He has a normal neurologic exam. He is not postictal at this time. I will recheck his screening labs. I did speak to the nurse practitioner on-call for the patient's practice and also his primary care physician Dr. Yamilet Medina. He is currently on Lamictal. They changed him from Keppra in the past. He does not want me to change or alter any medications at this time we will follow him up in the office. Repeat exam patient doing well at 5:58 PM. Will be discharged home with outpatient follow-up with his primary care physician. No driving. Continue his current medications. I discussed with family that we will not alter his medications at this time. Lab Data Attestation: I reviewed the patient's lab results. Lab results narrative: Chemistries unremarkable gap of 7 normal BUN and creatinine. Glucose of 96. CBC unremarkable. White count of 10. H&H of 13.4 and 39. Labs: Laboratory Results - last 24 hr 04/11/22 04/11/22 15:57 15:57 WBC 10.0 RBC 4.09 L Hgb 13.4 Hct 39.8 L MCV 97.3 H MCH 32.8 H MCHC 33.7 RDW Std Deviation 45.4 H RDW Coeff of Verito 12.8 Plt Count 275 MPV 10.9 Immature Gran % (Auto) 0.200 Neut % (Auto) 41.7 L Lymph % (Auto) 43.8 H Billings % (Auto) 6.7 Eos % (Auto) 6.8 H Baso % (Auto) 0.8 Absolute Neuts (auto) 4.1 Absolute Lymphs (auto) 4.36 Nucleated RBC % 0 Differential Comment Sodium 140 Potassium 4.3 Chloride 107 Carbon Dioxide 26.0 Anion Gap 7 BUN 16 Creatinine 0.94 Estim Creat Clear Calc 71.51 Est GFR (MDRD) Af Amer 103 Est GFR (MDRD) Non-Af 85 BUN/Creatinine Ratio 17.0 Glucose 96 Calcium 8.6 Discharge Plan Triage Chief Complaint: Seizure ED Provider: Ryan Kowalski Dx/Rx/DC Orders Clinical Impression: Recurrent seizures, History of stroke, History of seizure, History of atrial fibrillation Prescriptions: No Action primidone 50 mg tablet 75 mg PO BID Qty: 90 5RF lamotrigine [Lamictal] 25 mg tablet 50 mg PO BID Qty: 120 5RF thiamine HCl (vitamin B1) 100 mg tablet 100 mg PO TID multivitamin with folic acid [Daily-Tin (with folic acid)] 400 mcg tablet 1 tab PO DAILY ondansetron 4 mg tablet,disintegrating 4 mg PO Q6H PRN (Reason: nausea and vomiting) Qty: 10 0RF amiodarone 200 mg tablet 100 mg PO DAILY Rx Instructions: take 200 mg daily for 5 days and 1/2 tablet there after atorvastatin 40 mg tablet 40 mg PO QHS Qty: 30 12RF aspirin [Adult Aspirin Regimen] 81 mg tablet,delayed release (DR/EC) 81 mg PO DAILY Qty: 90 3RF clopidogrel [Plavix] 75 mg tablet 75 mg PO DAILY Qty: 90 3RF acetaminophen 500 mg capsule 1,000 mg PO Q6H PRN (Reason: pain) Qty: 120 1RF Rx Instructions: 14 day #28 ferrous sulfate [FeroSul] 325 mg (65 mg iron) tablet 325 mg PO DAILY Qty: 90 1RF folic acid 1 mg tablet 1 mg PO DAILY Qty: 90 3RF magnesium oxide 400 mg (241.3 mg magnesium) tablet 400 mg PO DAILY Qty: 90 3RF Primary Care Provider: Yamilet Medina Referrals: Yamilet Medina MD [Primary Care Provider] - As soon as possible Activity Restrictions/Additional Instructions: We are not going to change in your medications at this time. Call and follow-up with your primary care physician. I spoke with him today. No driving at this time. Disposition Disposition: Home, Self Care
[2022-04-11 16:13] LABS: Absolute Lymphocyte Count 4.36 X10^3/uL (0.83-4.51); Absolute Neutrophil Count 4.1 X10^3/uL (2.0-7.7); Basophil# 0.08 X10^3/uL; Basophil% 0.8 % (0-1); Eosinophil# 0.68 X10^3/uL; Eosinophils% 6.8 % (0-5); Hematocrit 39.8 % (40-54); Hemoglobin 13.4 g/dL (13.0-16.5); Lymphocyte # 4.36 X10^3/ul (0.83-4.51); Lymphocyte % 43.8 % (19-41); Mean Corp Hgb Conc 33.7 g/dL (32-36); Mean Corpuscular Hgb 32.8 pg (27.0-32.0); Mean Corpuscular Volume 97.3 fL (80-94); Mean Platelet Vol. 10.9 fl (6.2-12.0); Monocyte# 0.67 X10^3/uL; Monocyte% 6.7 % (0-10); NRBC Flagged by Analyzer 0 % (0-5); Neutrophil # 4.14 X10^3/uL (2.7-7.7); Neutrophil % 41.7 % (47-70); POSITIVE COUNT YES; POSITIVE MORPHOLOGY YES; Platelet Count 275 K/mm3 (150-450); RBC Distribution Width CV 12.8 % (11.6-14.6); RBC Distribution Width SD 45.4 fl (35.1-43.9); Red Blood Count 4.09 M/mm3 (4.6-6.2)
[2022-04-11 16:19] VITALS: BP 111/69; PULSE 65; RESP 16; TEMP 36.6; O2SAT 98
[2022-04-11 16:20] LABS: Anion Gap 7 (5-15); BUN 16 mg/dL (7-18); Calcium,Total 8.6 mg/dL (8.5-10.1); Chloride 107 mmol/L (98-107); Creatinine, Serum 0.94 mg/dL (0.70-1.30); EST Glomerular Filtration Rate 85 mL/min (>60); Est Glom Filt Rate - Afr Amer 103 mL/min (>60); Estimated Creatinine Clearance 71.51 ml/min; Glucose 96 mg/dL (74-106); Potassium 4.3 mmol/L (3.5-5.1); Sodium Level 140 mmol/L (136-145)
[2022-04-11 17:00] VITALS: BP 101/65; PULSE 64; RESP 15; TEMP 36.7; O2SAT 97
[2022-04-11 17:01] LABS: Differential Indicated SCAN CRITERIA MET
[2022-04-11 18:00] VITALS: BP 107/67; PULSE 67; RESP 18; TEMP 36.7; O2SAT 96
[2022-04-11 18:42] VITALS: BP 106/84; PULSE 79; RESP 16; TEMP 36.7; O2SAT 96
== END 2022-04-11 18:42 | disposition home or self-care (01) ==
PROVIDERS: Emergency Provider Emergency Medicine; PCP Internal Medicine; Visit Provider Emergency Medicine
DX: G40.909 Epilepsy, unspecified, not intractable, without status epilepticus (principal); Z95.5 Presence of coronary angioplasty implant and graft; E78.5 Hyperlipidemia, unspecified; R10.9 Unspecified abdominal pain; F17.210 Nicotine dependence, cigarettes, uncomplicated; Z86.73 Personal history of transient ischemic attack (TIA), and cerebral infarction without residual deficits; M54.9 Dorsalgia, unspecified; R51.9 Headache, unspecified; I25.10 Atherosclerotic heart disease of native coronary artery without angina pectoris; Z95.1 Presence of aortocoronary bypass graft
CPT/HCPCS: 80048; 85025; 99285; A4216

== ENCOUNTER 2022-09-05 19:23 | Emergency (ER) | payer MEDICARE, MEDICAID, SELFPAY ==
[2022-09-05 19:24] VITALS: BP 154/93; PULSE 81; RESP 18; TEMP 36.8; O2SAT 97; BMI 21.9
--- NOTE | 2022-09-05 19:40 | CT_ITS ---
STUDY: CT BRAIN WITHOUT CONTRAST REASON FOR EXAM: Male, 67 years old. Trauma RADIATION DOSAGE (If Supplied By Facility): CTDIvol = ( 44.99 ) mGy, DLP = ( 812.98 ) mGycm TECHNIQUE: Transaxial CT imaging of the brain was performed without administration of intravenous contrast material. Individualized dose optimization techniques were used for this CT. COMPARISON: 04/10/2022 FINDINGS: Evidence for soft tissue swelling and scalp lacerations over the right vertex. Normal calvarium. There is mild cerebral atrophy with widening of the extra-axial spaces and ventricular dilatation. There are areas of decreased attenuation within the white matter tracts of the supratentorial brain, consistent with microvascular disease changes. Normal basal ganglia and thalami. Normal brainstem. There is mild cerebellar atrophy. Stable encephalomalacia of the right temporal parietal occipital region, from previous infarct. There is no intracranial hemorrhage. There are no findings of an acute ischemic infarction. Normal visualized paranasal sinuses. CT/Brain/Head without Contrast IMPRESSION: No definite change or acute intracranial abnormality. Chronic involutional changes of the brain. Electronically Signed: Timbo Hood MD at 20:42 EDT ,
--- NOTE | 2022-09-05 19:40 | CT_ITS ---
INDICATION: Trauma EXAMINATION: CT CHEST WITHOUT CONTRAST - CT Chest W/O Contrast Injection TECHNIQUE: Helically acquired images were obtained of the chest. A radiation dose optimization technique was used for this scan. IV Contrast dosage and agent: None. COMPARISON: None. FINDINGS: LUNGS, PLEURA AND LARGE AIRWAYS: Hyperexpansion of the lungs with evidence of centrilobular emphysema. No pneumothorax. There is a 1.5 cm soft tissue nodular density in the posterior left costophrenic angle. It was also present on a CT of the abdomen from 04/10/2022 and recommendations were made at that time for further evaluation. Neoplasm is not excluded and once again, recommend PET scan or short interval follow-up. No focal infiltrates. No effusions. THYROID: No thyroid lesions. HEART AND PERICARDIUM: Previous CABG. Heart size is normal. No pericardial effusion. CORONARY ARTERIES: Coronary artery calcification is seen. VESSELS: Thoracic aorta is not dilated. MEDIASTINUM AND CLOTILDE: Although no gross mediastinal or hilar mass or adenopathy is seen, adenopathy is difficult to exclude without IV contrast was not given. Esophagus is unremarkable. No hiatal hernia. UPPER ABDOMEN: No acute pathology. BONES: No suspicious lytic or blastic abnormality. There are no definite fractures seen however the degree of patient motion makes it impossible to exclude nondisplaced rib fractures. CT/Chest without Contrast IMPRESSION: Limited by patient motion. COPD. No pneumothorax seen. Again seen is a suspicious nodule or mass in the posterior left costophrenic angle. Recommend further evaluation such as PET scan or short interval follow-up. No gross fractures but exam limited by rib motion. Electronically Signed: Timbo Hood MD at 20:49 EDT ,
--- NOTE | 2022-09-05 19:40 | CT_ITS ---
STUDY: CT CERVICAL SPINE WITHOUT CONTRAST REASON FOR EXAM: Male, 67 years old. Trauma RADIATION DOSAGE (If Supplied By Facility): CTDIvol = ( 12.57 ) mGy, DLP = ( 286.51 ) mGycm TECHNIQUE: High resolution transaxial imaging was performed without contrast material. Sagittal and coronal images were reconstructed. Individualized dose optimization techniques were used for this CT. COMPARISON: None FINDINGS: No definite acute fracture/dislocation. The cervical junction is intact. C1-C2 articulation is intact. Cysts are seen at the base of the odontoid process. Severe reversal of curvature. There is 4 mm retrolisthesis of C5 on C6, otherwise normal alignment. Facet joints are intact at all levels bilaterally. No jumped facets. There is multilevel spondyloarthropathy. Multilevel degenerative disc disease seen. Multilevel loss of disc height. Multilevel posterior marginal osteophytes and disc bulges. Multilevel neural foraminal narrowing. Multilevel narrowing of the spinal canal. Visualized paraspinal soft tissues and structures are unremarkable. CT/Spine Cervical without Contras IMPRESSION: There is no definite acute fracture/dislocation. Degenerative changes. Electronically Signed: Timbo Hood MD at 20:59 EDT ,
[2022-09-05] MEDS: Ondansetron 4 MG/2 ML Vial IV (19:53)
[2022-09-05] MEDS: fentaNYL 100 MCG/2 ML Ampul 50 MCG IV (19:53)
[2022-09-05 21:41] VITALS: BP 133/73; PULSE 71; RESP 16; O2SAT 97
[2022-09-05] MEDS: Lidocaine 1% /Epi 1:100 (20ml) 20 ML Vial INFILT (23:34)
[2022-09-05] MEDS: Lidocaine 1% (20 ml mdv) 20 ML Vial INFILT (23:34)
--- NOTE | 2022-09-06 00:18 | EX.ED.GENINJ ---
HPI History of Present Illness Chief Complaint: Trauma Informant: patient Narrative Narrative: Patient is a 67-year-old male with history of stroke, coronary artery disease, seizures and CABG presenting for head trauma. Patient was up on a ladder that was leaning against a tree when the ladder somehow fell and patient fell off the ladder. Patient states the ladder was also on a hill so he actually fell down approximately 20 feet until he hit the bottom of the hill and hit a tree at the bottom. He hit it with his head. He was able to crawl up the hill and get help. He denies any loss of consciousness. He is ambulatory at this time. He has no significant pain. He has significant laceration to the top of his head was brought to the ER for further evaluation. Denies associated neck pain, extremity pain. He notes he does have some mild shoulder blade/thoracic back pain bilaterally. Tetanus Immunization: <5 years [facility] Medical History Abnormal electrocardiogram Atherosclerotic heart disease of [place] coronary artery without angina pectoris Atrial septal aneurysm Chronic back pain CVA (cerebral vascular accident) Heart valve problem History of left heart catheterization (LHC) (~05/27/21) Hyperlipidemia Nicotine dependence Postoperative atrial fibrillation Seizure Syncope and collapse Home Medications acetaminophen 500 mg capsule 1,000 mg PO Q6H PRN pain #120 caps 02/24/22 [Rx Last Taken Unknown] folic acid 1 mg tablet 1 mg PO DAILY #90 tabs 03/30/22 [Rx Last Taken Unknown] magnesium oxide 400 mg (241.3 mg magnesium) tablet 400 mg PO DAILY #90 tabs 03/30/22 [Rx Last Taken Unknown] ondansetron 4 mg disintegrating tablet 4 mg PO Q6H PRN nausea and vomiting #10 tabs 04/10/22 [Rx Last Taken Unknown] lamotrigine 100 mg tablet 100 mg .Route .COMPLEX #60 tabs 05/10/22 [Rx Last Taken Unknown] ascorbate calcium (vitamin C) 500 mg tablet 500 mg PO DAILY #90 tabs 06/16/22 [Rx Last Taken Unknown] aspirin 81 mg tablet,delayed release (Adult Aspirin Regimen) 81 mg PO DAILY #90 tabs 06/16/22 [Rx Last Taken Unknown] clopidogrel 75 mg tablet (Plavix) 75 mg PO DAILY #90 tabs 06/16/22 [Rx Last Taken Unknown] ferrous sulfate 325 mg (65 mg iron) tablet (FeroSul) 325 mg PO DAILY #90 tabs 06/16/22 [Rx Last Taken Unknown] multivitamin with folic acid 400 mcg tablet (Daily-Tin (with folic acid)) 1 tab PO DAILY #90 tabs 06/16/22 [Rx Last Taken Unknown] thiamine HCl (vitamin B1) 100 mg tablet 100 mg PO TID #90 tabs 06/16/22 [Rx Last Taken Unknown] amiodarone 200 mg tablet 100 mg PO DAILY #90 tabs 06/18/22 [Rx Last Taken Unknown] atorvastatin 40 mg tablet 40 mg PO QHS #30 tabs 08/10/22 [Rx Last Taken Unknown] primidone 50 mg tablet 75 mg PO BID tremor 09/05/22 [History Last Taken Unknown] cephalexin 500 mg capsule 500 mg PO Q6 #12 CAPSULES 09/06/22 [Rx Last Taken Unknown] hydrocodone-acetaminophen 5-325mg 5mg-325mg 1 tab PO Q6H PRN PRN Pain 3 days #12 TABLETS 09/06/22 [Rx Last Taken Unknown] Allergy/AdvReac Type Severity Reaction Status Date / Time bee venom protein (honey bee) Allergy Severe Anaphylaxis Verified 09/05/22 19:24 tuberculin, purified protein Allergy Swelling Verified 09/05/22 19:24 deriva Family History Mother Myocardial infarction Brother Myocardial infarction Surgical History finger surgery History of coronary artery bypass surgery (~09/21/21) History of lumbar puncture (~04/2017) lymph node resection S/P triple vessel bypass Stented coronary artery (10/06/17) Social History household members: family Smoking Status: Current every day smoker tobacco type: cigarettes Tobacco: How many years used: 61 Electronic Cigarette Use: not used second hand exposure: Yes alcohol intake: current alcohol intake frequency: a few times a month Alcohol type: hard liquor details: Patient reduced his alcohol intake when 'his lady passed in 2014' substance use type: does not use caffeine: Yes Type: carbonated beverages and coffee ROS ROS ED Constitutional Constitutional ED: Denies chills or fever(s) Eyes Eyes: Denies blurry vision or change in vision ENT ENT ED: Denies sore throat Cardiovascular Cardiovascular: Denies chest pain or palpitations Respiratory/Chest Respiratory/Chest: Denies cough or dyspnea Gastrointestinal Gastrointestinal: Denies abdominal pain, nausea or vomiting Musculoskeletal Musculoskeletal: Reports back pain; Denies neck pain Integumentary Reports Abrasions; Denies rash Neurologic Neurologic: Reports headache(s); Denies paresthesias or weakness Hematologic/Lymphatic Hematologic/Lymphatic: Denies easy bleeding or easy bruising EXAM Physical Exam Const Vital Signs: 09/05/22 19:24 09/05/22 19:28 09/05/22 21:41 Temperature 98.2 F Temperature Source Oral Pulse Rate 81 71 Respiratory Rate 18 16 Respiratory Effort Normal Non-Labored Respiratory Depth Normal Respiratory Pattern Normal Blood Pressure 154/93 H 133/73 H Blood Pressure Mean 113 93 Pulse Ox 97 97 Oxygen Delivery Method Room Air Room Air Positive well nourished and well developed General Appearance ED: well developed and NAD HEENT Reports TM's clear HEENT Narrative: No septal hematoma present. No palpable skull fracture appreciated. No hemotympanum. No signs of basilar skull fracture trauma and tenderness Nose: Negative for septum abnormal Tympanic Membrane ED: Yes TM's clear Eyes PERRL and EOMs intact bilaterally Neck full ROM Neck Narrative: No step-off sign General: Negative for tenderness Chest Wall inspection of chest normal and palpation of chest normal Resp normal respiratory effort and clear to auscultation bilaterally Cardio regular rhythm and no murmurs Rate: regular rate GI normal to inspection, nondistended, normoactive bowel sounds and non-tender Extremity normal to inspection and full ROM Extremity Narrative: Normal range of motion of the bilateral shoulders. No pinpoint tenderness to palpation of the scapula or ribs. No flail chest segment. Patient does report pain in the region of his shoulder blades bilaterally. General Extremety ED: Negative for deformity, edema or tenderness General Extremity: Negative for deformity or edema Neuro oriented x3, CN's II-XII intact bilaterally, moves all extremities, no focal motor deficits and no sensory deficits noted [place] Coma Scale: document GCS findings Spontaneous Obeys Commands Oriented 15 Sensorium / Orientation: alert Psych mental status grossly normal and thought process normal Skin Skin Narrative: Complex laceration to the scalp. Patient has 2 separate lacerations. The more anterior 1 is approximately 3 cm and slightly T-shaped. It is slightly gaping. No active bleeding at this time. More posterior at the vertex is 6 cm x 2 cm irregular full-thickness scalp laceration. In the anterior aspect of it there is a hematoma present and some exposure of the skull. At the posterior aspect there is also another area of skull exposure. Patient has some scattered skin tears to the bilateral shoulders with no active bleeding. PROC Procedures Lacerations anterior scalp: Length: 1.18 in Depth: Sub Q Shape: T shaped Prep: Chlorhexadine Laceration repair: Irrigated, Lidocaine with epi, Local and Skin sutures Irrigated (ml): 250 Number of Sutures/Nik: 3 Suture Information: Vicryl (rapide), Simple and 5-0 vertex scalp: Length: 3.15 in Depth: Fascia Shape: gaping, irregular Prep: Chlorhexadine Laceration repair: Irrigated, Lidocaine with epi, Local, Skin sutures (6), Subcutaneous sutures (2) and Wound explored Irrigated (ml): 500 Suture Information: Vicryl (rapid), Simple and 4-0 MDM MDM MDM Narrative Medical decision making narrative: Patient is evaluated for significant head injury after a fall off a ladder. Patient sounds like he fell approximately 20 feet since he fell off a ladder that he was 3 to 5 feet up on but then he fell down a hill which was another 10 feet down. Patient has normal neurologic exam at this time. Because of mechanism a CT of the brain, C-spine is obtained. Patient also complained of some upper thoracic back pain which I think is more associated with his abrasions however given the mechanism and force involved a CT of the chest is obtained to rule out possible rib fracture, underlying lung injury and scapular fractures. Imaging is negative for any acute process include intracranial hemorrhage, cervical spine fracture, skull fracture or any type of thoracic fracture. Suture repair is performed/attempted. Patient does have 3 cm central area of the larger laceration that I cannot get the wound edges to approximate. I am concerned that there is actually of the missing piece of tissue. This area is left open to heal by secondary intent. Vaseline soaked gauze is placed and outer dressings were placed on that. Patient is she was given fentanyl for pain. He is given a prescription for [place] for further pain control. He is given follow-up with plastic surgery because of his complex scalp wound however given how vascular it is it should heal. He is empirically placed on antibiotics due to mechanism of injury. He is given first dose in the emergency room. Patient given close return precautions. Patient would like to go home. He is discharged home in stable condition. He has a steady gait in the emergency room. Patient's tetanus is up-to-date and does not require one at this time. Radiography Diagnostic Testing: Clinical Impression(s) from Imaging Studies Brain CT 09/05/22 19:40 IMPRESSION: No definite change or acute intracranial abnormality. Chronic involutional changes of the brain. Electronically Signed: Timbo Hood MD at 20:42 EDT , Cervical Spine CT 09/05/22 19:40 IMPRESSION: There is no definite acute fracture/dislocation. Degenerative changes. Electronically Signed: Timbo Hood MD at 20:59 EDT , Chest CT 09/05/22 19:40 IMPRESSION: Limited by patient motion. COPD. No pneumothorax seen. Again seen is a suspicious nodule or mass in the posterior left costophrenic angle. Recommend further evaluation such as PET scan or short interval follow-up. No gross fractures but exam limited by rib motion. Electronically Signed: Timbo Hood MD at 20:49 EDT , Discharge Plan Triage Chief Complaint: Trauma ED Provider: Shayla Pascual Dx/Rx/DC Orders Clinical Impression: Head injury, Fall from ladder, Complex laceration of scalp, Skin tear Instructions: ED Head Injury (Adult), ED Laceration: All Closures Prescriptions: New hydrocodone-acetaminophen 5-325 mg tablet 1 tab PO Q6H PRN PRN (Reason: Pain) 3 Days Qty: 12 0RF cephalexin 500 mg capsule 500 mg PO Q6 Qty: 12 0RF No Action lamotrigine 100 mg tablet 100 mg .ROUTE .COMPLEX Qty: 60 5RF Rx Instructions: Take 1/2 tablet PO every morning and 1 tablet every evening for 1 week then 1 tablet twice daily thereafter. ondansetron 4 mg tablet,disintegrating 4 mg PO Q6H PRN (Reason: nausea and vomiting) Qty: 10 0RF primidone 50 mg tablet 75 mg PO BID acetaminophen 500 mg capsule 1,000 mg PO Q6H PRN (Reason: pain) Qty: 120 1RF Rx Instructions: 14 day #28 folic acid 1 mg tablet 1 mg PO DAILY Qty: 90 3RF magnesium oxide 400 mg (241.3 mg magnesium) tablet 400 mg PO DAILY Qty: 90 3RF thiamine HCl (vitamin B1) 100 mg tablet 100 mg PO TID Qty: 90 1RF ascorbate calcium (vitamin C) 500 mg tablet 500 mg PO DAILY Qty: 90 1RF aspirin [Adult Aspirin Regimen] 81 mg tablet,delayed release (DR/EC) 81 mg PO DAILY Qty: 90 3RF clopidogrel [Plavix] 75 mg tablet 75 mg PO DAILY Qty: 90 3RF ferrous sulfate [FeroSul] 325 mg (65 mg iron) tablet 325 mg PO DAILY Qty: 90 3RF multivitamin with folic acid [Daily-Tin (with folic acid)] 400 mcg tablet 1 tab PO DAILY Qty: 90 3RF amiodarone 200 mg tablet 100 mg PO DAILY Qty: 90 1RF Rx Instructions: take 200 mg daily for 5 days and 1/2 tablet there after atorvastatin 40 mg tablet 40 mg PO QHS Qty: 30 12RF Primary Care Provider: Yamilet Medina Referrals: Alonso Hylton MD [Med Staff - Active Staff] - 1 Day for another exam Yamilet Medina MD [Primary Care Provider] - Activity Restrictions/Additional Instructions: You have no signs of skull fracture, internal injuries or bleeding around the brain associated with your injury/fall today. You have a complex laceration to your scalp that was not able to be closed all the way. I would like you to follow-up with plastic surgery. In the meantime please keep the area moist with petroleum soaked gauze and covered. You been placed on empiric antibiotics and given a short course of pain medicine. Please call the plastic surgery office in the morning to arrange close outpatient follow-up. If you have further concerns please return to the emergency room. You may also follow-up with your primary care doctor. Disposition Disposition: Home, Self Care Discharge Date/Time: 09/06/22 00:57
[2022-09-06] MEDS: Cephalexin 250 MG Capsule 500 MG PO (00:35)
== END 2022-09-06 00:57 | disposition home or self-care (01) ==
PROVIDERS: Emergency Provider Emergency Medicine; PCP Internal Medicine; Visit Provider Emergency Medicine
DX: S01.01XA Laceration without foreign body of scalp, initial encounter (principal); G40.909 Epilepsy, unspecified, not intractable, without status epilepticus; W11.XXXA Fall on and from ladder, initial encounter; E78.5 Hyperlipidemia, unspecified; I25.10 Atherosclerotic heart disease of native coronary artery without angina pectoris; F17.210 Nicotine dependence, cigarettes, uncomplicated; Z86.73 Personal history of transient ischemic attack (TIA), and cerebral infarction without residual deficits; S09.8XXA Other specified injuries of head, initial encounter; Z79.899 Other long term (current) drug therapy; Z79.82 Long term (current) use of aspirin; Z79.02 Long term (current) use of antithrombotics/antiplatelets; Z95.5 Presence of coronary angioplasty implant and graft
CPT/HCPCS: 13132; 13133; 70450; 71250; 72125; 99285; A4216; J2405

== ENCOUNTER 2022-09-09 20:13 | Observation (INO) | payer MEDICARE, MEDICAID, SELFPAY ==
[2022-09-09 20:14] VITALS: BP 124/84; PULSE 64; RESP 18; TEMP 36.4; O2SAT 95; BMI 21.1
--- NOTE | 2022-09-09 20:28 | CT_ITS ---
EXAM: CT HEAD WITHOUT INTRAVENOUS CONTRAST CLINICAL INDICATION: dizziness, hallucinations TECHNIQUE: Multiple axial images were obtained of the head without intravenous contrast. This CT exam was performed using one or more of the following dose reduction techniques: automated exposure control, adjustment of the mA and/or kV according to patient size, and/or use of iterative reconstruction technique. RADIATION DOSE: CTDIvol = 44.99 mGy, DLP = 796.11 mGy-cm COMPARISON: 6.4.23 FINDINGS: BRAIN AND EXTRA-AXIAL SPACES: Stable encephalomalacia of the right temporal parietal occipital region, from previous infarct. No intra- or extra-axial hemorrhage. No intracranial mass or mass effect. Posterior fossa structures are unremarkable. Ventricles are appropriate for age. No hydrocephalus. Basal cisterns are patent. BONES/JOINTS: Unremarkable. No discrete lytic or blastic abnormalities. SINUSES: Unremarkable as visualized. Clear. MASTOID AIR CELLS: Unremarkable. Clear. ORBITS: Visualized globes, extraocular muscles, optic nerves and retrobulbar fat appear unremarkable. CT/Brain/Head without Contrast IMPRESSION: No acute findings in the head/brain. Electronically Signed: Aubrey Adams MD at 21:32 EDT ,
--- NOTE | 2022-09-09 20:29 | EKG12_ITS ---
Test Reason : Blood Pressure : / mmHG Vent. Rate : 063 BPM Atrial Rate : 063 BPM P-R Int : 154 ms QRS Dur : 110 ms QT Int : 438 ms P-R-T Axes : 078 -37 075 degrees QTc Int : 448 ms Normal sinus rhythm Left axis deviation Abnormal ECG Confirmed by CONCETTA WOODWARD, HAL ([id number]), editor map COREEN BOYER ([id number]) on 09/13/2022 1:32:15 PM Referred By: Confirmed By:HAL HYLTON MD
--- NOTE | 2022-09-09 20:30 | EDS_ITS ---
HPI History of Present Illness Chief Complaint: Head Injury Detail of Chief Complaint: Dizziness Informant: patient Narrative Narrative: Patient presents to the emergency department with complaint of dizziness that started few hours ago. Patient states that he was pulling nails out of tires and accidentally bumped his head underneath the truck. Patient felt dizzy he thinks before he bumped his head. He denies headache. His granddaughter who is with him states that he is having hard time staying awake and he feels sleepy and head feels fuzzy. Incidentally patient had a fall of about 20 feet 4 days ago off a ladder and down a hill sustaining a injury to his head and lacerations to his head. Patient was seen in the emergency department and had a CT of his brain and suture repair of his scalp lacerations. Patient's had no vomiting. Granddaughter noted also on arrival to the emergency department that he is hallucinating as he thought he was seeing things underneath the counter in the room. Patient denies alcohol or drug use. [facility] Medical History Abnormal electrocardiogram Atherosclerotic heart disease of [place] coronary artery without angina pectoris Atrial septal aneurysm Chronic back pain Complex laceration of scalp CVA (cerebral vascular accident) Fall from ladder Heart valve problem History of left heart catheterization (LHC) (~05/27/21) Hyperlipidemia Nicotine dependence Postoperative atrial fibrillation Scalp pain Scalp wound Seizure Syncope and collapse Home Medications acetaminophen 500 mg capsule 1,000 mg PO Q6H PRN pain #120 caps 02/24/22 [Rx Last Taken Unknown] folic acid 1 mg tablet 1 mg PO DAILY #90 tabs 03/30/22 [Rx Last Taken Unknown] magnesium oxide 400 mg (241.3 mg magnesium) tablet 400 mg PO DAILY #90 tabs 03/30/22 [Rx Last Taken Unknown] ondansetron 4 mg disintegrating tablet 4 mg PO Q6H PRN nausea and vomiting #10 tabs 04/10/22 [Rx Last Taken Unknown] ascorbate calcium (vitamin C) 500 mg tablet 500 mg PO DAILY #90 tabs 06/16/22 [Rx Last Taken Unknown] aspirin 81 mg tablet,delayed release (Adult Aspirin Regimen) 81 mg PO DAILY #90 tabs 06/16/22 [Rx Last Taken Unknown] clopidogrel 75 mg tablet (Plavix) 75 mg PO DAILY #90 tabs 06/16/22 [Rx Last Taken Unknown] ferrous sulfate 325 mg (65 mg iron) tablet (FeroSul) 325 mg PO DAILY #90 tabs 06/16/22 [Rx Last Taken Unknown] multivitamin with folic acid 400 mcg tablet (Daily-Tin (with folic acid)) 1 tab PO DAILY #90 tabs 06/16/22 [Rx Last Taken Unknown] thiamine HCl (vitamin B1) 100 mg tablet 100 mg PO TID #90 tabs 06/16/22 [Rx Last Taken Unknown] amiodarone 200 mg tablet 100 mg PO DAILY #90 tabs 06/18/22 [Rx Last Taken Unknown] atorvastatin 40 mg tablet 40 mg PO QHS #30 tabs 08/10/22 [Rx Last Taken Unknown] cephalexin 500 mg capsule 500 mg PO Q6 #12 CAPSULES 09/06/22 [Rx Last Taken Unknown] hydrocodone-acetaminophen 5-325mg 5mg-325mg 1 tab PO Q6H PRN PRN Pain 3 days #12 TABLETS 09/06/22 [Rx Last Taken Unknown] doxycycline hyclate 100 mg capsule 100 mg PO BID #20 caps 09/07/22 [Rx Last Taken Unknown] oxycodone-acetaminophen 5 mg-325 mg tablet (Percocet) 1 tab PO Q6H PRN pain (scale score 7-10) 7 days #28 tabs 09/07/22 [Rx Last Taken Unknown] lamotrigine 100 mg tablet 100 mg PO BID #60 tabs 09/09/22 [Rx Last Taken Unknown] primidone 50 mg tablet 100 mg PO TID tremor #180 tabs 09/09/22 [Rx Last Taken Unknown] Allergy/AdvReac Type Severity Reaction Status Date / Time bee venom protein (honey bee) Allergy Severe Anaphylaxis Verified 09/09/22 20:14 tuberculin, purified protein Allergy Severe Swelling Verified 09/09/22 20:14 deriva Family History Mother Myocardial infarction Brother Myocardial infarction Surgical History finger surgery History of coronary artery bypass surgery (~09/21/21) History of lumbar puncture (~04/2017) lymph node resection S/P triple vessel bypass Stented coronary artery (10/06/17) Social History household members: family Smoking Status: Current every day smoker tobacco type: cigarettes Tobacco: How many years used: 61 Electronic Cigarette Use: not used second hand exposure: Yes alcohol intake: current alcohol intake frequency: a few times a month Alcohol type: hard liquor details: Patient reduced his alcohol intake when 'his lady passed in 2014' substance use type: does not use caffeine: Yes Type: carbonated beverages and coffee ROS ROS ED ROS Narrative Dizziness Review of Systems ROS Unobtainable: other Constitutional Constitutional ED: Reports lethargy; Denies chills, fever(s), sweats or weight loss Eyes Eyes: Denies blurry vision, change in vision or diplopia ENT ENT ED: Denies rhinorrhea or sore throat Cardiovascular Cardiovascular: Denies chest pain, orthopnea or racing heartbeat Respiratory/Chest Respiratory/Chest: Denies cough, dyspnea, dyspnea on exertion, orthopnea or sputum Gastrointestinal Gastrointestinal: Denies abdominal pain, diarrhea, nausea or vomiting Genitourinary Genitourinary ED: Denies dysuria, hematuria or urinary frequency Musculoskeletal Musculoskeletal: Denies arthralgias, back pain, myalgias or neck pain Integumentary Denies abscess, Abrasions or rash Neurologic Neurologic: Denies headache(s) or weakness Psychiatric Psychiatric: Reports other Details: Visual hallucinations ; Denies anxiety, depression or suicidal thoughts Endocrine Endocrinology: Denies polydipsia, polyphagia or polyuria Hematologic/Lymphatic Hematologic/Lymphatic: Denies easy bleeding, easy bruising or lymphadenopathy Allergic/Immunologic Allergic/Immunologic ED: Denies mouth swelling, tongue swelling or urticaria EXAM Physical Exam Const Vital Signs: 09/09/22 20:14 09/09/22 21:54 Temperature 97.5 F L Temperature Source Temporal Pulse Rate 64 Pulse Rate [Lying] 61 Pulse Rate [Sitting (for 1 minute prior to obtaining)] 65 Respiratory Rate 18 Blood Pressure 124/84 H Blood Pressure [Lying] 116/76 Blood Pressure [Sitting (for 1 minute prior to obtaining)] 134/79 H Blood Pressure Mean 97 Blood Pressure Mean [Lying] 89 Blood Pressure Mean [Sitting (for 1 minute prior to obtaining)] 97 Pulse Ox 95 Oxygen Delivery Method Room Air Positive well nourished and well developed General Appearance ED: well developed and NAD HEENT Reports TM's clear and moist mucous membranes normocephalic and atraumatic; Negative for trauma or tenderness Tympanic Membrane ED: Yes TM's clear Eyes PERRL and EOMs intact bilaterally General Eye ED: Negative for pale conjunctiva or scleral icterus Neck no lymphadenopathy, supple and no JVD General: Negative for tenderness Chest Wall inspection of chest normal and palpation of chest normal Chest: Negative for tenderness Resp normal respiratory effort and clear to auscultation bilaterally Effort and Inspection: Negative for respiratory distress or pain with movement Auscultation: Negative for rhonchi, wheezes or diminished lung sounds Cardio regular rate, regular rhythm, S1 normal heart sound, S2 normal heart sound and no murmurs Peripheral Pulses: pulses 2+ throughout GI normal to inspection, nondistended, normoactive bowel sounds, soft to palpation, non-tender, non-distended and no masses Back/Spine no CVA tenderness and no thoracic nor lumbar tenderness Extremity normal to inspection General Extremety ED: Negative for edema General Extremity: Negative for edema Neuro oriented x3, CN's II-XII intact bilaterally, no sensory deficits noted and gait normal Sensorium / Orientation: awake, alert, oriented to person, oriented to place and oriented to time Motor Exam: strength 5/5 throughout and strength abnormal Psych mental status grossly normal Skin no rashes or lesions noted and no wounds MDM MDM MDM Narrative Medical decision making narrative: Patient presents with dizziness and feeling off balance. He denies nausea or vomiting. Dizziness started about half an hour after bumping his head underneath a truck. Clinically suspect vertigo as he does have nystagmus during Hallpike maneuver. With head turn to the right and left. Patient did have a repeat CT of the brain without contrast given his recent significant head injury and this was unremarkable. He did have evidence of prior stroke. Patient had an EKG on arrival that showed a sinus rhythm with a rate of 63 bpm with no acute ST segment changes. CBC with differential showed a white count 11.7 with a hemoglobin of 13 and platelet count of 292. Chemistries unremarkable. Troponin normal at 6. Alcohol was negative. Urine tox screen pending. We attempted the perform orthostatics however patient could not stand due to dizziness. I did order Antivert 25 mg p.o. Care of patient turned over to evening physician awaiting reevaluation after Antivert and to see if he can ambulate. If patient continues to be severely symptomatic may need admission for continued treatment of his suspected vertigo. Lab Data Attestation: I reviewed the patient's lab results. Labs: Laboratory Results - last 24 hr 09/09/22 09/09/22 09/09/22 20:50 20:50 21:20 WBC 11.7 H RBC 4.01 L Hgb 13.2 Hct 40.8 MCV 101.7 H MCH 32.9 H MCHC 32.4 RDW Std Deviation 47.6 H RDW Coeff of Verito 12.6 Plt Count 292 MPV 9.8 Immature Gran % (Auto) 0.300 Neut % (Auto) 44.9 L Lymph % (Auto) 41.0 [place] % (Auto) 6.7 Eos % (Auto) 6.7 H Baso % (Auto) 0.4 Absolute Neuts (auto) 5.2 Absolute Lymphs (auto) 4.78 H Nucleated RBC % 0 Differential Comment SCANNED Sodium 135 L Potassium 4.8 Chloride 103 Carbon Dioxide 27.0 Anion Gap 5 BUN 21 H Creatinine 1.05 Estim Creat Clear Calc 60.10 Est GFR (MDRD) Af Amer 90 Est GFR (MDRD) Non-Af 75 BUN/Creatinine Ratio 20.0 Glucose 97 Calcium 8.7 Troponin I High Sens 6 Urine Opiates Screen Urine Methadone Screen Ur Barbiturates Screen Ur Phencyclidine Scrn Ur Amphetamines Screen MDMA (Ecstasy) Screen U Benzodiazepines Scrn Urine Cocaine Screen U Cannabinoids Screen Ur Drug Screen Comment Ethyl Alcohol < 3.0 09/09/22 21:50 WBC RBC Hgb Hct MCV MCH MCHC RDW Std Deviation RDW Coeff of Verito Plt Count MPV Immature Gran % (Auto) Neut % (Auto) Lymph % (Auto) [place] % (Auto) Eos % (Auto) Baso % (Auto) Absolute Neuts (auto) Absolute Lymphs (auto) Nucleated RBC % Differential Comment Sodium Potassium Chloride Carbon Dioxide Anion Gap BUN Creatinine Estim Creat Clear Calc Est GFR (MDRD) Af Amer Est GFR (MDRD) Non-Af BUN/Creatinine Ratio Glucose Calcium Troponin I High Sens Urine Opiates Screen NEGATIVE Urine Methadone Screen NEGATIVE Ur Barbiturates Screen POSITIVE H Ur Phencyclidine Scrn NEGATIVE Ur Amphetamines Screen NEGATIVE MDMA (Ecstasy) Screen NEGATIVE U Benzodiazepines Scrn NEGATIVE Urine Cocaine Screen NEGATIVE U Cannabinoids Screen NEGATIVE Ur Drug Screen Comment Ethyl Alcohol Radiography Diagnostic Testing: Clinical Impression(s) from Imaging Studies Brain CT 09/09/22 20:28 IMPRESSION: No acute findings in the head/brain. Electronically Signed: Aubrey Adams MD at 21:32 EDT , Discharge Plan Triage Chief Complaint: Head Injury ED Provider: Anand Colvin Dx/Rx/DC Orders Clinical Impression: Dizziness, Vertigo Prescriptions: No Action primidone 50 mg tablet 100 mg PO TID Qty: 180 5RF lamotrigine 100 mg tablet 100 mg PO BID Qty: 60 5RF doxycycline hyclate 100 mg capsule 100 mg PO BID Qty: 20 0RF oxycodone-acetaminophen [Percocet] 5-325 mg tablet 1 tab PO Q6H PRN (Reason: pain (scale score 7-10)) 7 Days Qty: 28 0RF Rx Instructions: 28 tabs (twenty-eight) ondansetron 4 mg tablet,disintegrating 4 mg PO Q6H PRN (Reason: nausea and vomiting) Qty: 10 0RF hydrocodone-acetaminophen 5-325 mg tablet 1 tab PO Q6H PRN PRN (Reason: Pain) 3 Days Qty: 12 0RF cephalexin 500 mg capsule 500 mg PO Q6 Qty: 12 0RF acetaminophen 500 mg capsule 1,000 mg PO Q6H PRN (Reason: pain) Qty: 120 1RF Rx Instructions: 14 day #28 folic acid 1 mg tablet 1 mg PO DAILY Qty: 90 3RF magnesium oxide 400 mg (241.3 mg magnesium) tablet 400 mg PO DAILY Qty: 90 3RF thiamine HCl (vitamin B1) 100 mg tablet 100 mg PO TID Qty: 90 1RF ascorbate calcium (vitamin C) 500 mg tablet 500 mg PO DAILY Qty: 90 1RF aspirin [Adult Aspirin Regimen] 81 mg tablet,delayed release (DR/EC) 81 mg PO DAILY Qty: 90 3RF clopidogrel [Plavix] 75 mg tablet 75 mg PO DAILY Qty: 90 3RF ferrous sulfate [FeroSul] 325 mg (65 mg iron) tablet 325 mg PO DAILY Qty: 90 3RF multivitamin with folic acid [Daily-Tin (with folic acid)] 400 mcg tablet 1 tab PO DAILY Qty: 90 3RF amiodarone 200 mg tablet 100 mg PO DAILY Qty: 90 1RF Rx Instructions: take 200 mg daily for 5 days and 1/2 tablet there after atorvastatin 40 mg tablet 40 mg PO QHS Qty: 30 12RF Primary Care Provider: Yamilet Medina Referrals: Yamilet Medina MD [Primary Care Provider] -
[2022-09-09] MEDS: 0.9% Normal Saline 1,000 ML 150 ML IV (21:24)
[2022-09-09 21:26] LABS: Anion Gap 5 (5-15); BUN 21 mg/dL (7-18); Calcium,Total 8.7 mg/dL (8.5-10.1); Chloride 103 mmol/L (98-107); Creatinine, Serum 1.05 mg/dL (0.70-1.30); EST Glomerular Filtration Rate 75 mL/min (>60); Est Glom Filt Rate - Afr Amer 90 mL/min (>60); Glucose 97 mg/dL (74-106); Potassium 4.8 mmol/L (3.5-5.1); Sodium Level 135 mmol/L (136-145); Troponin-I HS 6 pg/mL (3.0-78.0)
[2022-09-09 21:34] LABS: Alcohol, Blood (Medical)-Serum < 3.0 mg/dL
[2022-09-09 21:36] LABS: Absolute Lymphocyte Count 4.78 X10^3/uL (0.83-4.51); Absolute Neutrophil Count 5.2 X10^3/uL (2.0-7.7); Basophil# 0.05 X10^3/uL; Basophil% 0.4 % (0-1); Eosinophil# 0.78 X10^3/uL; Eosinophils% 6.7 % (0-5); Hematocrit 40.8 % (40-54); Hemoglobin 13.2 g/dL (13.0-16.5); Lymphocyte # 4.78 X10^3/ul (0.83-4.51); Mean Corp Hgb Conc 32.4 g/dL (32-36); Mean Corpuscular Hgb 32.9 pg (27.0-32.0); Mean Corpuscular Volume 101.7 fL (80-94); Mean Platelet Vol. 9.8 fl (6.2-12.0); Monocyte# 0.78 X10^3/uL; Monocyte% 6.7 % (0-10); NRBC Flagged by Analyzer 0 % (0-5); Neutrophil # 5.22 X10^3/uL (2.7-7.7); Neutrophil % 44.9 % (47-70); POSITIVE MORPHOLOGY YES; Platelet Count 292 K/mm3 (150-450); RBC Distribution Width CV 12.6 % (11.6-14.6); RBC Distribution Width SD 47.6 fl (35.1-43.9); Red Blood Count 4.01 M/mm3 (4.6-6.2); White Blood Count 11.7 K/mm3 (4.4-11.0)
[2022-09-09 21:38] LABS: Differential Indicated SCAN CRITERIA MET
[2022-09-09 21:54] VITALS: BP 116/76; BP 134/79; PULSE 61; PULSE 65
[2022-09-09] MEDS: Meclizine HCl 25 MG Tablet PO (22:02)
[2022-09-09 22:04] LABS: Differential Comment SCANNED
[2022-09-09 22:07] LABS: Amphetamine Urine VISTA NEGATIVE (<1000 ng/mL); Barbiturate Urine VISTA POSITIVE (< 200 ng/mL); Benzodiazepine Urine VISTA NEGATIVE (< 200 ng/mL); Cocaine Urine VISTA NEGATIVE (< 300 ng/mL); Ecstacy Urine VISTA NEGATIVE (< 500 ng/mL); Methadone Urine VISTA NEGATIVE (< 300 ng/mL); PCP Urine VISTA NEGATIVE (< 25 ng/mL); THC Urine VISTA NEGATIVE (< 50 ng/mL); Vista UDS pH Range 6
[2022-09-09 22:43] VITALS: BP 112/63; PULSE 59; RESP 14; O2SAT 96
--- NOTE | 2022-09-09 23:26 | PCM.HP.STD ---
HPI - General General Date of Admission: 09/09/22 Date of Service: 09/09/22 Chief Complaint: Blunt head injury HPI Narrative RADHA BRENNAN, is a 67 M with a significant history of epilepsy; essential tremors; CVA; cervical spinal stenosis; CAD status post stents and on aspirin and Plavix with last stent placed almost a year ago; and who presented to the emergency department with blunt head injury. Patient was helping his son to work on his truck. Patient was lying under the track and he hit the top of his head which already had a wound to the base of the vehicle. Thereafter he had excruciating pain of his head and he felt fuzzy. He reports a vertiginous feeling. And 4 days before this presentation patient presented to emergency department after falling from a ladder which was leaning on a tree. However he broke his fall before hitting the ground hitting his head on the tree. He fell from a ladder because the ladder from the tree. He had climbed the tree in an attempt to fix signal interruption with a cable dish. After the fall he had no dizziness. He came to the emergency department and lacerations sustained from the fall was sutured. Thereafter he followed up with Dr. Hylton's office, plastic surgeon for further care of the wound on his head that had developed following the fall.. And so far all what he has had at Dr. Hylton's office is dressing changes to his head. Reportedly the sutures placed on his scalp has been absorbed On this presentation when patient attempted to walk to the bathroom with nurses at the ED patient was found to have a very unsteady gait and he reported Vertigo. COUNTS INCLUDE 234 BEDS AT THE [facility] Medical History Abnormal electrocardiogram Atherosclerotic heart disease of [place] coronary artery without angina pectoris Atrial septal aneurysm Chronic back pain Complex laceration of scalp CVA (cerebral vascular accident) Fall from ladder Heart valve problem History of left heart catheterization (LHC) (~05/27/21) Hyperlipidemia Nicotine dependence Postoperative atrial fibrillation Scalp pain Scalp wound Seizure Syncope and collapse Home Medications acetaminophen 500 mg capsule 1,000 mg PO Q6H PRN pain #120 caps 02/24/22 [Rx Last Taken Unknown] folic acid 1 mg tablet 1 mg PO DAILY #90 tabs 03/30/22 [Rx Last Taken Unknown] magnesium oxide 400 mg (241.3 mg magnesium) tablet 400 mg PO DAILY #90 tabs 03/30/22 [Rx Last Taken Unknown] ondansetron 4 mg disintegrating tablet 4 mg PO Q6H PRN nausea and vomiting #10 tabs 04/10/22 [Rx Last Taken Unknown] ascorbate calcium (vitamin C) 500 mg tablet 500 mg PO DAILY #90 tabs 06/16/22 [Rx Last Taken Unknown] aspirin 81 mg tablet,delayed release (Adult Aspirin Regimen) 81 mg PO DAILY #90 tabs 06/16/22 [Rx Last Taken Unknown] clopidogrel 75 mg tablet (Plavix) 75 mg PO DAILY #90 tabs 06/16/22 [Rx Last Taken Unknown] ferrous sulfate 325 mg (65 mg iron) tablet (FeroSul) 325 mg PO DAILY #90 tabs 06/16/22 [Rx Last Taken Unknown] multivitamin with folic acid 400 mcg tablet (Daily-Tin (with folic acid)) 1 tab PO DAILY #90 tabs 06/16/22 [Rx Last Taken Unknown] thiamine HCl (vitamin B1) 100 mg tablet 100 mg PO TID #90 tabs 06/16/22 [Rx Last Taken Unknown] amiodarone 200 mg tablet 100 mg PO DAILY #90 tabs 06/18/22 [Rx Last Taken Unknown] atorvastatin 40 mg tablet 40 mg PO QHS #30 tabs 08/10/22 [Rx Last Taken Unknown] cephalexin 500 mg capsule 500 mg PO Q6 #12 CAPSULES 09/06/22 [Rx Last Taken Unknown] doxycycline hyclate 100 mg capsule 100 mg PO BID #20 caps 09/07/22 [Rx Last Taken Unknown] oxycodone-acetaminophen 5 mg-325 mg tablet (Percocet) 1 tab PO Q6H PRN pain (scale score 7-10) 7 days #28 tabs 09/07/22 [Rx Last Taken Unknown] lamotrigine 100 mg tablet 100 mg PO BID #60 tabs 09/09/22 [Rx Last Taken Unknown] primidone 50 mg tablet 100 mg PO TID tremor #180 tabs 09/09/22 [Rx Last Taken Unknown] Allergy/AdvReac Type Severity Reaction Status Date / Time bee venom protein (honey bee) Allergy Severe Anaphylaxis Verified 09/09/22 20:14 tuberculin, purified protein Allergy Severe Swelling Verified 09/09/22 20:14 deriva Family History Mother Myocardial infarction Brother Myocardial infarction Surgical History finger surgery History of coronary artery bypass surgery (~09/21/21) History of lumbar puncture (~04/2017) lymph node resection S/P triple vessel bypass Stented coronary artery (10/06/17) Social History household members: family Smoking Status: Current every day smoker tobacco type: cigarettes Tobacco: How many years used: 61 Electronic Cigarette Use: not used second hand exposure: Yes alcohol intake: current alcohol intake frequency: a few times a month Alcohol type: hard liquor details: Patient reduced his alcohol intake when 'his lady passed in 2014' substance use type: does not use caffeine: Yes Type: carbonated beverages and coffee ROS ROS Narrative Pertinent positives and pertinent negatives as noted in HPI. All other systems were reviewed and are negative Vital Signs Vital Signs Vital Signs: 09/09/22 20:14 09/09/22 21:54 09/09/22 22:43 Temperature 97.5 F L Temperature Source Temporal Pulse Rate 64 59 L Pulse Rate [Lying] 61 Pulse Rate [Sitting (for 1 minute prior to obtaining)] 65 Respiratory Rate 18 14 Blood Pressure 124/84 H 112/63 Blood Pressure [Lying] 116/76 Blood Pressure [Sitting (for 1 minute prior to obtaining)] 134/79 H Blood Pressure Mean 97 79 Blood Pressure Mean [Lying] 89 Blood Pressure Mean [Sitting (for 1 minute prior to obtaining)] 97 Pulse Ox 95 96 Oxygen Delivery Method Room Air Room Air Weight Weight: 63.1 kg Body Mass Index (BMI) 21.1 Physical Exam Narrative Physical exam: General: Well-nourished, well-developed. Head: Normocephalic, laceration on top of scalp, no tenderness Eyes: Vision is grossly intact. EOMI ENT: Wax in bilateral ears. No trauma, moist mucous membranes, no rhinorrhea Neck: Nontender, No thyromegaly. CVS: Regular rate and rhythm. S1-S2 present. No murmur, gallop or rub. Respiratory : clear to auscultation bilaterally, chest wall nontender Abdomen: Soft, nontender, nondistended, normal bowel sounds, no masses : Deferred Back: Nontender, no CVA tenderness, no midline spinal tenderness, deformities, step-offs Extremities: Nontender full range of motion, no trauma Skin: Normal color, no trauma, abrasions Neuro: Alert. Knows where he is. He does not know the month or the year. He knew the day. He did not know the name of the president (granddaughter was at the bed side stated that at baseline patient should know the name of the president). Psychiatry: Normal mood. Normal affect. Results Lab / Micro Data Result Diagrams: 09/09/22 21:20 09/09/22 20:50 Labs: Laboratory Results - last 24 hr 09/09/22 20:50: Sodium 135 L, Potassium 4.8, Chloride 103, Carbon Dioxide 27.0, Anion Gap 5, BUN 21 H, Creatinine 1.05, Estim Creat Clear Calc 60.10, Est GFR (MDRD) Af Amer 90, Est GFR (MDRD) Non-Af 75, BUN/Creatinine Ratio 20.0, Glucose 97, Calcium 8.7, Troponin I High Sens 6 09/09/22 20:50: Ethyl Alcohol < 3.0 09/09/22 21:20: WBC 11.7 H, RBC 4.01 L, Hgb 13.2, Hct 40.8, MCV 101.7 H, MCH 32.9 H, MCHC 32.4, RDW Std Deviation 47.6 H, RDW Coeff of Verito 12.6, Plt Count 292, MPV 9.8, Immature Gran % (Auto) 0.300, Neut % (Auto) 44.9 L, Lymph % (Auto) 41.0, [place] % (Auto) 6.7, Eos % (Auto) 6.7 H, Baso % (Auto) 0.4, Absolute Neuts (auto) 5.2, Absolute Lymphs (auto) 4.78 H, Nucleated RBC % 0, Differential Comment SCANNED 09/09/22 21:50: Urine Opiates Screen NEGATIVE, Urine Methadone Screen NEGATIVE, Ur Barbiturates Screen POSITIVE H, Ur Phencyclidine Scrn NEGATIVE, Ur Amphetamines Screen NEGATIVE, MDMA (Ecstasy) Screen NEGATIVE, U Benzodiazepines Scrn NEGATIVE, Urine Cocaine Screen NEGATIVE, U Cannabinoids Screen NEGATIVE, Ur Drug Screen Comment Radiology Impression Brain CT 09/09/22 20:28 IMPRESSION: No acute findings in the head/brain. Electronically Signed: Aubrey Adams MD at 21:32 EDT , Assessment & Plan Assessment/Plan (1) Vertigo: (2) Dizziness: (3) Fall from ladder: (4) Scalp wound: (5) Complex laceration of scalp: PLAN: Plan Vertigo/blunt trauma to head Brain and head CT on 09/09/2022: Radiologist impression: No acute findings in the head/brain. Independent interpretation of hospitalist: I agree with radiologist interpretation. Cervical spine CT on 09/05/2022 showed degenerative changes without any acute pathology. Chest CT on 09/05/2022 showed no acute pathology. Suspicious nodule was seen and recommendation is longitudinal follow-up. Brain/head CT on 09/05/2022 showed chronic involutional changes without any acute pathology. Hold aspirin and Plavix. order MRI. Review of records: On the same day of presentation patient saw neurology who recommended cervical spine MRI if patient is to deteriorate. Cervical spine MRI ordered. Schedule meclizine 3 times daily Valium5 mg PO Q8H PRN Vestibular rehab to be started inpatient; and possibly continuing outpatient if a central cause of vertigo is ruled out. CBC showed white count of 11.7, trend. Hemoglobin level is normal. DVT prophylaxis: SCDs ordered Charges/Coding Visit Charges Inpatient E&M: 32154 Init Hosp L2
[2022-09-10] VITALS (12 sets, daily range): BP systolic 101–132; BP diastolic 61–81; PULSE 52–64; RESP 12–16; TEMP 36.2–36.8; O2SAT 94–100
--- NOTE | 2022-09-10 01:41 | MRI_ITS ---
HISTORY: Dizziness, HEAD TRAUMA, CONFUSION. TECHNIQUE: Multiplanar and multisequence MR images of the brain were obtained without contrast. 283 images. COMPARISON: CT prior day. FINDINGS: BRAIN PARENCHYMA: Moderate chronic right parietal temporal occipital infarct with chronic hemorrhage in the right occipital lobe. Mild chronic right matter changes. No abnormal focus of restricted diffusion. No acute intracranial hemorrhage identified. CSF SPACES: Mild generalized volume loss. No significant midline shift or other mass effect.No extra-axial fluid collection. VASCULAR SYSTEM: Major intracranial flow voids are maintained. PARANASAL SINUSES AND MASTOID AIR CELLS: No significant air fluid levels. ORBITS: Symmetric contents. MRI/Brain without Contrast IMPRESSION: No evidence for acute infarct or other acute intrapelvic process. Old right cerebral infarct. Chronic involutional and white matter changes. Electronically Signed: Lady Graham MD at 13:55 EDT ,
--- NOTE | 2022-09-10 01:41 | MRI_ITS ---
HISTORY: Blunt trauma to head -- VO from Dr. ley,, no contrast jlw f/u recent CT, spinal stenosis. TECHNIQUE: Multiplanar and multisequence MR images of the cervical spine were obtained without contrast. 257 images. COMPARISON: CT 09/05/2022. FINDINGS: Motion artifact lowers the sensitivity of examination. VERTEBRAE: Vertebral body heights maintained. Degenerative odontoid cyst. Degenerative bone marrow endplate changes of C4-5 and C5-6. VERTEBRAL ALIGNMENT: Reversal of the cervical lordosis with 3 mm retrolisthesis of C5-6. SPINAL CANAL: Possible cord edema at C5. No gross epidural collection or ligamentous disruption. SOFT TISSUES: No prevertebral fluid collection. INTERVERTEBRAL DISCS: C2-3: No significant posterior disc protrusion, central canal stenosis, or foraminal narrowing. C3-4: Very mild posterior disc bulge osteophyte complex with uncovertebral and facet arthropathy resulting in mild central canal stenosis and left foraminal narrowing. C4-5: Posterior disc bulge osteophyte complex with uncovertebral and facet arthropathy resulting in moderate central canal stenosis, ventral cord abutment , and mild-moderate bilateral foraminal narrowing. C5-6: Posterior disc bulge osteophyte complex with uncovertebral and facet arthropathy resulting in moderate-severe central canal stenosis with ventral cord abutment and moderate-severe bilateral foraminal narrowing. C6-7: Minimal narrowing of the thecal sac and mild bilateral foraminal narrowing. C7-T1: No significant posterior disc protrusion, central canal stenosis , or foraminal narrowing. MRI/Spine Cervical (Routine) IMPRESSION: Multilevel degenerative disc disease resulting in moderate spinal canal stenosis with cord abutment at C4-5 and moderate-severe spinal canal stenosis with cord abutment at C5-6. Foraminal narrowing as above. Motion artifact. Possible mild spinal cord edema at C5. Electronically Signed: Lady Graham MD at 14:06 EDT ,
[2022-09-10 05:51] LABS: Absolute Lymphocyte Count 4.88 X10^3/uL (0.83-4.51); Basophil# 0.04 X10^3/uL; Basophil% 0.4 % (0-1); Eosinophil# 0.85 X10^3/uL; Eosinophils% 8.1 % (0-5); Hemoglobin 13.3 g/dL (13.0-16.5); Lymphocyte # 4.88 X10^3/ul (0.83-4.51); Lymphocyte % 46.4 % (19-41); Mean Corp Hgb Conc 33.3 g/dL (32-36); Mean Corpuscular Hgb 33.3 pg (27.0-32.0); Mean Corpuscular Volume 100.3 fL (80-94); Mean Platelet Vol. 9.8 fl (6.2-12.0); Monocyte# 0.71 X10^3/uL; Monocyte% 6.8 % (0-10); NRBC Flagged by Analyzer 0 % (0-5); POSITIVE MORPHOLOGY YES; Platelet Count 307 K/mm3 (150-450); RBC Distribution Width CV 12.6 % (11.6-14.6); RBC Distribution Width SD 46.6 fl (35.1-43.9); Red Blood Count 3.99 M/mm3 (4.6-6.2); White Blood Count 10.5 K/mm3 (4.4-11.0)
[2022-09-10 05:56] LABS: Differential Indicated SCAN CRITERIA MET
[2022-09-10 06:17] LABS: Atypical Lymphocyte 1+ %; Differential Comment SCANNED; Reactive Lymphocyte RARE
[2022-09-10 06:42] LABS: Anion Gap 3 (5-15); BUN 16 mg/dL (7-18); BUN/Creat Ratio 20.5 RATIO (10-20); Calcium,Total 8.6 mg/dL (8.5-10.1); Chloride 110 mmol/L (98-107); Creatinine, Serum 0.78 mg/dL (0.70-1.30); EST Glomerular Filtration Rate 105 mL/min (>60); Est Glom Filt Rate - Afr Amer 127 mL/min (>60); Glucose 106 mg/dL (74-106); Potassium 4.1 mmol/L (3.5-5.1); Sodium Level 140 mmol/L (136-145)
[2022-09-10] MEDS: LORazepam 2 MG/ML Syringe 0.5 MG IV ×2 (10:21→14:28)
--- NOTE | 2022-09-10 15:45 | DCINST_ITS ---
Discharge Instructions Diet Discharge Diet: Low fat / Low cholesterol Activity Discharge Activity: Return to Normal Activity Dressing / Incision Call your doctor if you observe: Fever of 101 or Higher, Shortness of breath, Dizziness, Fainting spells, Swelling in the ankles, Chest pain and Increased palpitations (irregular heartbeat) Follow Up Care Test Results: Test results from this visit will be discussed in further detail at your follow- up appointment, if applicable. Discharge Plan Admission Admit Date/Time: 09/09/22 23:27 Attending Provider: Jonel Godinez Primary Care Provider: Yamilet Medina Consulting Providers: Gregorio Bingham Instructions Patient Instructions: After a Concussion, ED Head Injury (Adult) Discharge Orders/Prescriptions Prescriptions: Continued primidone 50 mg tablet 100 mg PO TID Qty: 180 5RF lamotrigine 100 mg tablet 100 mg PO BID Qty: 60 5RF doxycycline hyclate 100 mg capsule 100 mg PO BID Qty: 20 0RF ondansetron 4 mg tablet,disintegrating 4 mg PO Q6H PRN (Reason: nausea and vomiting) Qty: 10 0RF acetaminophen 500 mg capsule 1,000 mg PO Q6H PRN (Reason: pain) Qty: 120 1RF Rx Instructions: 14 day #28 folic acid 1 mg tablet 1 mg PO DAILY Qty: 90 3RF magnesium oxide 400 mg (241.3 mg magnesium) tablet 400 mg PO DAILY Qty: 90 3RF thiamine HCl (vitamin B1) 100 mg tablet 100 mg PO TID Qty: 90 1RF ascorbate calcium (vitamin C) 500 mg tablet 500 mg PO DAILY Qty: 90 1RF aspirin [Adult Aspirin Regimen] 81 mg tablet,delayed release (DR/EC) 81 mg PO DAILY Qty: 90 3RF clopidogrel [Plavix] 75 mg tablet 75 mg PO DAILY Qty: 90 3RF ferrous sulfate [FeroSul] 325 mg (65 mg iron) tablet 325 mg PO DAILY Qty: 90 3RF multivitamin with folic acid [Daily-Tin (with folic acid)] 400 mcg tablet 1 tab PO DAILY Qty: 90 3RF amiodarone 200 mg tablet 100 mg PO DAILY Qty: 90 1RF Rx Instructions: take 200 mg daily for 5 days and 1/2 tablet there after atorvastatin 40 mg tablet 40 mg PO QHS Qty: 30 12RF Discontinued oxycodone-acetaminophen [Percocet] 5-325 mg tablet 1 tab PO Q6H PRN (Reason: pain (scale score 7-10)) 7 Days Qty: 28 0RF Rx Instructions: 28 tabs (twenty-eight) cephalexin 500 mg capsule 500 mg PO Q6 Qty: 12 0RF Referrals / Follow Up: Yamilet Medina MD [Primary Care Provider] - Within 1 Week Alfonso Jain MD [Non-Staff -Ordering Privileges] - Within 1 Week Disposition Disposition (needs filled in before D/C Order can be placed): Home, Self Care
--- NOTE | 2022-09-10 18:19 | PCM.DC.SUM ---
Providers Date of Admission: 09/09/22 Primary Care Physician: Dr. Yamilet Medina MD Reason For Visit: dizziness Diagnosis Discharge Diagnosis (1) Vertigo: Status: Acute Code(s): R42 - Dizziness and giddiness (2) Dizziness: Status: Acute Code(s): R42 - Dizziness and giddiness (3) Fall from ladder: Status: Acute Code(s): W11.XXXA - Fall on and from ladder, initial encounter (4) Scalp wound: Status: Acute Code(s): S01.00XA - Unspecified open wound of scalp, initial encounter (5) Complex laceration of scalp: Status: Acute Code(s): S01.01XA - Laceration without foreign body of scalp, initial encounter Medications at Discharge Home Medications acetaminophen 500 mg capsule 1,000 mg PO Q6H PRN pain #120 caps 02/24/22 folic acid 1 mg tablet 1 mg PO DAILY #90 tabs 03/30/22 magnesium oxide 400 mg (241.3 mg magnesium) tablet 400 mg PO DAILY #90 tabs 03/30/22 ondansetron 4 mg disintegrating tablet 4 mg PO Q6H PRN nausea and vomiting #10 tabs 04/10/22 ascorbate calcium (vitamin C) 500 mg tablet 500 mg PO DAILY #90 tabs 06/16/22 aspirin 81 mg tablet,delayed release (Adult Aspirin Regimen) 81 mg PO DAILY #90 tabs 06/16/22 clopidogrel 75 mg tablet (Plavix) 75 mg PO DAILY #90 tabs 06/16/22 ferrous sulfate 325 mg (65 mg iron) tablet (FeroSul) 325 mg PO DAILY #90 tabs 06/16/22 multivitamin with folic acid 400 mcg tablet (Daily-Tin (with folic acid)) 1 tab PO DAILY #90 tabs 06/16/22 thiamine HCl (vitamin B1) 100 mg tablet 100 mg PO TID #90 tabs 06/16/22 amiodarone 200 mg tablet 100 mg PO DAILY #90 tabs 06/18/22 atorvastatin 40 mg tablet 40 mg PO QHS #30 tabs 08/10/22 doxycycline hyclate 100 mg capsule 100 mg PO BID #20 caps 09/07/22 lamotrigine 100 mg tablet 100 mg PO BID #60 tabs 09/09/22 primidone 50 mg tablet 100 mg PO TID tremor #180 tabs 09/09/22 Hospital Course Operations None Procedures None Summary of Care Provided Minutes Spent on Discharge: 38 Hospital Course: Per HPI: YAMILET BRENNAN, is a 67 M with a significant history of epilepsy; essential tremors; CVA; cervical spinal stenosis; CAD status post stents and on aspirin and Plavix with last stent placed almost a year ago; and who? presented to the emergency department with blunt head injury.? Patient was helping his son to work on his truck.? Patient was lying under? the track and he hit the top of his head which already had a wound to the base of the vehicle.? Thereafter he had excruciating pain of his head and he felt fuzzy.? He reports a vertiginous feeling. And 4 days before this presentation patient presented to emergency department after falling from a ladder which was leaning on a tree.? However he broke his fall before hitting the ground hitting his head on the tree. He fell from a ladder because the ladder from the tree.? He had climbed the tree in an attempt to fix signal interruption with a cable dish.? After the fall he had no dizziness.? He came to the emergency department and lacerations sustained from the fall was sutured.? Thereafter he followed up with Dr. Hylton's office, plastic surgeon? for further care? of the wound on his head that had developed following the fall..? And so far all what he has had at Dr. Hylton's office is dressing changes to his head.? Reportedly? the sutures placed on his scalp has been absorbed On this presentation when patient attempted to walk to the bathroom with nurses at the ED patient was found to have a very unsteady gait and he reported Vertigo. Hospital Course: 1. Vertigo in the setting of a likely concussion/seizure disorder/essential tremor?67-year-old male presents to the hospital after hitting his head on a car yesterday. According to his family member that was not a significant event, this significant event occurred on Tuesday when he fell from 20 feet up in had hit his head on the ground. Immediately after that event he felt okay, came to the ER and was evaluated with no significant issues. He followed up with his neurologist a few days later and was cleared. The day he saw his neurologist he was working on a car and smacked his head on the undercarriage of the truck. Since then he has been vertiginous and has had difficulty concentrating. All the symptoms indicate a possible concussion MRI of his head during this event was negative, does demonstrate an old stroke which was known CT of his head on his initial trauma on 09/05/2022 was negative for any acute blood. He does have an extensive alcohol use history where he states that he is drank either 12 beers or 2 gallons of whiskey every day for 43 years, he did quit about 8 years ago. He lives with friend who is a home health aide and she states that she has noticed some changes in behavior will wear he will be quick to anger. She did feel safe taking him home today and I discussed with him the risks and benefits of discharge and expressed understanding. I did discuss and give them information on postconcussion treatment and to decrease stimulation at home. If he does not improve they are to follow-up with his neurologist early next week if he gets worse I do recommend that they follow-up at a tertiary center with in-house neurology for further evaluation. 2. Coronary artery disease status post stent and CABG, hypertension, hyperlipidemia, CVA are all chronic medical conditions which complicate his care. His home medications were continued where appropriate Physical Exam Narrative General: Alert, Oriented x2, Cooperative, No apparent distress HEENT: Atraumatic, PERRLA, EOMI, Normocephalic, scalp laceration dressing intact Oral: Moist Mucosa Neck: Supple, No JVD Lungs: Diminished, Normal air movement, No rhonchi, No wheeze, No rales Cardiovascular: Regular rate, Regular Rhythm, Normal S1, Normal S2, No murmurs Abdomen: Soft, Non Tender, Non-Distended, No Hepato-splenomegaly Extremities: No edema, Capillary Refill Less than 3 Seconds Skin: No rashes, No breakdown Musculoskeletal: No Tenderness to Palpation of Joints or Extremities Neurological: Cranial nerves II-XII grossly intact, Motor Exam 5/5 strength throughout, Sensory exam intact to light touch and pain Psych/Mental Status: Agitated at times, reports of hallucinations though nothing evident on my exam Weight / BMI Weight Weight: 131 lb 9.855 oz Body Mass Index (BMI) 20.0 ABG / Lab / Microbiology Data Result Diagrams: 09/10/22 05:35 09/10/22 05:35 Laboratory: Laboratory Results - last 24 hr 09/09/22 20:50: Sodium 135 L, Potassium 4.8, Chloride 103, Carbon Dioxide 27.0, Anion Gap 5, BUN 21 H, Creatinine 1.05, Estim Creat Clear Calc 60.10, Est GFR (MDRD) Af Amer 90, Est GFR (MDRD) Non-Af 75, BUN/Creatinine Ratio 20.0, Glucose 97, Calcium 8.7, Troponin I High Sens 6 09/09/22 20:50: Ethyl Alcohol < 3.0 09/09/22 21:20: WBC 11.7 H, RBC 4.01 L, Hgb 13.2, Hct 40.8, MCV 101.7 H, MCH 32.9 H, MCHC 32.4, RDW Std Deviation 47.6 H, RDW Coeff of Verito 12.6, Plt Count 292, MPV 9.8, Immature Gran % (Auto) 0.300, Neut % (Auto) 44.9 L, Lymph % (Auto) 41.0, [place] % (Auto) 6.7, Eos % (Auto) 6.7 H, Baso % (Auto) 0.4, Absolute Neuts (auto) 5.2, Absolute Lymphs (auto) 4.78 H, Nucleated RBC % 0, Differential Comment SCANNED 09/09/22 21:50: Urine Opiates Screen NEGATIVE, Urine Methadone Screen NEGATIVE, Ur Barbiturates Screen POSITIVE H, Ur Phencyclidine Scrn NEGATIVE, Ur Amphetamines Screen NEGATIVE, MDMA (Ecstasy) Screen NEGATIVE, U Benzodiazepines Scrn NEGATIVE, Urine Cocaine Screen NEGATIVE, U Cannabinoids Screen NEGATIVE, Ur Drug Screen Comment 09/10/22 05:35: WBC 10.5, RBC 3.99 L, Hgb 13.3, Hct 40.0, MCV 100.3 H, MCH 33.3 H, MCHC 33.3, RDW Std Deviation 46.6 H, RDW Coeff of [place] 12.6, Plt Count 307, MPV 9.8, Immature Gran % (Auto) 0.300, Neut % (Auto) 38.0 L, Lymph % (Auto) 46.4 H, [place] % (Auto) 6.8, Eos % (Auto) 8.1 H, Baso % (Auto) 0.4, Absolute Neuts (auto) 4.0, Absolute Lymphs (auto) 4.88 H, Nucleated RBC % 0, Differential Comment SCANNED, Atypical Lymphocytes 1+, Reactive Lymphocytes RARE 09/10/22 05:35: Sodium 140, Potassium 4.1, Chloride 110 H, Carbon Dioxide 27.0, Anion Gap 3 L, BUN 16, Creatinine 0.78, Estim Creat Clear Calc 59.70, Est GFR (MDRD) Af Amer 127, Est GFR (MDRD) Non-Af 105, BUN/Creatinine Ratio 20.5 H, Glucose 106, Calcium 8.6, TSH 2.30 Radiography Diagnostic Testing: Radiology Impression Brain CT 09/09/22 20:28 IMPRESSION: No acute findings in the head/brain. Electronically Signed: Aubrey Adams MD at 21:32 EDT , Brain MRI 09/10/22 01:41 IMPRESSION: No evidence for acute infarct or other acute intrapelvic process. Old right cerebral infarct. Chronic involutional and white matter changes. Electronically Signed: Lady Graham MD at 13:55 EDT , Cervical Spine MRI 09/10/22 01:41 IMPRESSION: Multilevel degenerative disc disease resulting in moderate spinal canal stenosis with cord abutment at C4-5 and moderate-severe spinal canal stenosis with cord abutment at C5-6. Foraminal narrowing as above. Motion artifact. Possible mild spinal cord edema at C5. Electronically Signed: Lady Graham MD at 14:06 EDT , D/C Instructions Discharge Diet: Low fat / Low cholesterol Call your doctor if you observe: Fever of 101 or Higher, Shortness of breath, Dizziness, Fainting spells, Swelling in the ankles, Chest pain and Increased palpitations (irregular heartbeat) Meaningful Use Info Meaningful Use Diagnoses (Choose all that apply): None applicable Discharge Plan Admission Admit Date/Time: 09/09/22 23:27 Attending Provider: Jonel Godinez Primary Care Provider: Yamilet Medina Consulting Providers: Gregorio Bingham Instructions Patient Instructions: After a Concussion, ED Head Injury (Adult) Discharge Orders/Prescriptions Prescriptions: Continued primidone 50 mg tablet 100 mg PO TID Qty: 180 5RF lamotrigine 100 mg tablet 100 mg PO BID Qty: 60 5RF doxycycline hyclate 100 mg capsule 100 mg PO BID Qty: 20 0RF ondansetron 4 mg tablet,disintegrating 4 mg PO Q6H PRN (Reason: nausea and vomiting) Qty: 10 0RF acetaminophen 500 mg capsule 1,000 mg PO Q6H PRN (Reason: pain) Qty: 120 1RF Rx Instructions: 14 day #28 folic acid 1 mg tablet 1 mg PO DAILY Qty: 90 3RF magnesium oxide 400 mg (241.3 mg magnesium) tablet 400 mg PO DAILY Qty: 90 3RF thiamine HCl (vitamin B1) 100 mg tablet 100 mg PO TID Qty: 90 1RF ascorbate calcium (vitamin C) 500 mg tablet 500 mg PO DAILY Qty: 90 1RF aspirin [Adult Aspirin Regimen] 81 mg tablet,delayed release (DR/EC) 81 mg PO DAILY Qty: 90 3RF clopidogrel [Plavix] 75 mg tablet 75 mg PO DAILY Qty: 90 3RF ferrous sulfate [FeroSul] 325 mg (65 mg iron) tablet 325 mg PO DAILY Qty: 90 3RF multivitamin with folic acid [Daily-Tin (with folic acid)] 400 mcg tablet 1 tab PO DAILY Qty: 90 3RF amiodarone 200 mg tablet 100 mg PO DAILY Qty: 90 1RF Rx Instructions: take 200 mg daily for 5 days and 1/2 tablet there after atorvastatin 40 mg tablet 40 mg PO QHS Qty: 30 12RF Discontinued oxycodone-acetaminophen [Percocet] 5-325 mg tablet 1 tab PO Q6H PRN (Reason: pain (scale score 7-10)) 7 Days Qty: 28 0RF Rx Instructions: 28 tabs (twenty-eight) cephalexin 500 mg capsule 500 mg PO Q6 Qty: 12 0RF Referrals / Follow Up: Yamilet Medina MD [Primary Care Provider] - Within 1 Week Alfonso Jain MD [Non-Staff -Ordering Privileges] - Within 1 Week Disposition Disposition (needs filled in before D/C Order can be placed): Home, Self Care Charges/Coding Visit Charges Inpatient E&M: 94900 Disch Hosp >30min
== END 2022-09-10 16:48 | disposition home or self-care (01) ==
LOC: ED 22:06 → PCU 09-10 00:27
PROVIDERS: Emergency Medicine; Admitting Provider Hospitalist; Emergency Provider Emergency Medicine; PCP Internal Medicine; Visit Provider Family Medicine
DX: R42 Dizziness and giddiness (principal); G40.909 Epilepsy, unspecified, not intractable, without status epilepticus; S06.9X0A Unspecified intracranial injury without loss of consciousness, initial encounter; S01.01XD Laceration without foreign body of scalp, subsequent encounter; E78.5 Hyperlipidemia, unspecified; R26.9 Unspecified abnormalities of gait and mobility; Z86.73 Personal history of transient ischemic attack (TIA), and cerebral infarction without residual deficits; F17.210 Nicotine dependence, cigarettes, uncomplicated; I10 Essential (primary) hypertension; Z79.82 Long term (current) use of aspirin; I25.10 Atherosclerotic heart disease of native coronary artery without angina pectoris; Z95.1 Presence of aortocoronary bypass graft; G89.29 Other chronic pain; Z79.02 Long term (current) use of antithrombotics/antiplatelets; Z79.899 Other long term (current) drug therapy; W11.XXXD Fall on and from ladder, subsequent encounter; W22.09XA Striking against other stationary object, initial encounter; Y93.89 Activity, other specified; Y92.9 Unspecified place or not applicable; R13.11 Dysphagia, oral phase; R94.31 Abnormal electrocardiogram [ECG] [EKG]
CPT/HCPCS: 36415; 70450; 70551; 72141; 80048; 80307; 82077; 84443; 84484; 85025; 92507; 92610; 93005; 96361; 96374; 96376; 97162; 97166; 99221; 99285; 99406; G0378

== ENCOUNTER → 2022-09-28 | Outpatient (CLI) | payer MEDICARE, MEDICAID, SELFPAY ==
--- NOTE | 2022-09-28 10:30 | PET_ITS ---
EXAMINATION: FDG PET/CT INDICATIONS: 67-year-old male with a history of pulmonary nodularity. COMPARISON EXAMINATION: INDEX LESION SIZE SUV INTERPRETATION Pre-carinal mediastinum 19.7 mm, largest 9.5 max Fulfills quantitative criteria for viable neoplasm, histopathologic analysis is recommended. TECHNIQUE: Following the intravenous administration of 14.13 mCi of F-18 deoxyglucose via the left hand, multiplanar image acquisitions of the head, neck, chest, abdomen and pelvis to the level of the midthigh, obtained at one-hour post radiopharmaceutical administration contemporaneously interpreted with the current CT of the chest, abdomen and pelvis dated 09/28/2022 via coregistration reveal: SERUM GLUCOSE LEVEL: 117 mg/dL HEIGHT: 69 inches WEIGHT: 136 pounds FINDINGS: HEAD/NECK: There is no evidence of abnormal increased glucose metabolism in the pharyngeal mucosal space, parapharyngeal space, oropharynx, bilateral-lateral and anterior neck, hypopharynx and distribution of the larynx. There is diminished FDG concentration noted in the right parietal cerebral cortex. There is otherwise normal and preserved glucose metabolism noted in the remaining cerebral cortical and subcortical structures. CHEST: Increased FDG concentration is manifest in the pre-carinal mediastinum to the right of midline generating a calculated maximum standard uptake value of 9.5. The largest corresponding metabolic, morphologic abnormality is 19.7 mm transverse. The left ventricular myocardium visualization is consistent with the fed state. CT of the chest demonstrates the following anatomic characteristics: Atherosclerotic calcification is defined in the thoracic aorta without evidence of dilatation, aneurysm formation. Coronary artery calcification is observed. Linear parenchymal and nodular densities defined in the bilateral hemithorax are nonglucose avid. There is evidence of prior median sternotomy. ABDOMEN/PELVIS: Normal physiologic distribution of the radiopharmaceutical is identified in the hepatic and splenic parenchyma, both renal units, urinary bladder, and visualized intestinal tract. CT of the abdomen and pelvis is remarkable for the following: Calcified granuloma formation is noted within the splenic parenchyma. Atherosclerotic calcification is defined in the abdominal aorta without evidence of dilatation, aneurysm formation. Pelvic arterial calcification is observed. Calcification is noted within the prostate gland-base. Calcified phlebolith formation is encountered in the bilateral lower hemipelvis. SKELETAL: There is no evidence of quantitatively significant enhanced glucose metabolism on meticulous inspection of the appendicular and axial skeletal structures. Degenerative changes defined in the thoracic and lumbar spine demonstrate no evidence of increased glucose metabolism. Prominent uptake is noted in the sternum, attributed to prior surgical intervention-median sternotomy. There are no sclerotic, mixed sclerotic-lytic, or primarily lytic changes defined in the axial skeletal structures with evidence of increased FDG uptake. PET/PET/CT Tumor WB Initial IMPRESSION: 1. The increase in radiopharmaceutical concentration manifest in the pre-carinal lobe mediastinum to the right of midline involving lymph node stations 2, 4R fulfills quantitative criteria for viable neoplasm with single point technique. Histopathologic analysis should be considered. Electronic Signature Juan R Clark D.O. Accurate Quantification of SUVs for this report are calculated using the exclusive [employer]. ([place] Patent No. [id number] B2 [phone] [place] patent [phone]). Standardization and correction of the FDG SUV metric via [employer] technology allow for vendor non-specific objective quantitative examination comparison and optimization of the sensitivity and specificity of the FDG PET-CT examination. Electronically Signed: Juan R Clark, at 17:01 EDT ,
== END | disposition home or self-care (01) ==
LOC: ONC 08:27
PROVIDERS: PCP Internal Medicine; Referring Provider Internal Medicine; Visit Provider Internal Medicine
DX: R91.1 Solitary pulmonary nodule (principal)
CPT/HCPCS: 78816; A9552

== ENCOUNTER 2022-10-20 20:15 | Emergency (ER) | payer MEDICARE, MEDICAID, SELFPAY ==
[2022-10-20 20:16] VITALS: BP 111/60; PULSE 60; RESP 18; TEMP 36.4; O2SAT 97; BMI 21.4
--- NOTE | 2022-10-20 20:26 | EDS_ITS ---
HPI History of Present Illness Chief Complaint: Seizure Narrative Narrative: Patient presents after witnessed seizure. The history from granddaughter who saw him is that he had a tonic-clonic seizure now he is postictal. Last seizure episode was about 6 months ago. He is on Lamictal. He is not withdrawing from anything. No witnessed injury other than I am being told by family that few weeks ago he climbed on a ladder and fell and hit his head. [facility] Medical History Abnormal electrocardiogram Atherosclerotic heart disease of [place] coronary artery without angina pectoris Atrial septal aneurysm Chronic back pain Complex laceration of scalp CVA (cerebral vascular accident) Fall from ladder Heart valve problem History of left heart catheterization (LHC) (~05/27/21) Hyperlipidemia Nicotine dependence Postoperative atrial fibrillation Scalp pain Scalp wound Seizure Syncope and collapse Home Medications acetaminophen 500 mg capsule 1,000 mg (2 x 500 mg) PO Q6H PRN pain #120 caps 02/24/22 [Rx Last Taken Unknown] folic acid 1 mg tablet 1 mg PO DAILY #90 tabs 03/30/22 [Rx Last Taken Unknown] magnesium oxide 400 mg (241.3 mg magnesium) tablet 400 mg PO DAILY #90 tabs 03/30/22 [Rx Last Taken Unknown] ondansetron 4 mg disintegrating tablet 4 mg PO Q6H PRN nausea and vomiting #10 tabs 04/10/22 [Rx Last Taken Unknown] ascorbate calcium (vitamin C) 500 mg tablet 500 mg PO DAILY #90 tabs 06/16/22 [Rx Last Taken Unknown] aspirin 81 mg tablet,delayed release (Adult Aspirin Regimen) 81 mg PO DAILY #90 tabs 06/16/22 [Rx Last Taken Unknown] clopidogrel 75 mg tablet (Plavix) 75 mg PO DAILY #90 tabs 06/16/22 [Rx Last Taken Unknown] ferrous sulfate 325 mg (65 mg iron) tablet (FeroSul) 325 mg PO DAILY #90 tabs 06/16/22 [Rx Last Taken Unknown] multivitamin with folic acid 400 mcg tablet (Daily-Tin (with folic acid)) 1 tab PO DAILY #90 tabs 06/16/22 [Rx Last Taken Unknown] thiamine HCl (vitamin B1) 100 mg tablet 100 mg PO TID #90 tabs 06/16/22 [Rx Last Taken Unknown] amiodarone 200 mg tablet 100 mg (1/2 x 200 mg) PO DAILY #90 tabs 06/18/22 [Rx Last Taken Unknown] atorvastatin 40 mg tablet 40 mg PO QHS #30 tabs 08/10/22 [Rx Last Taken Unknown] doxycycline hyclate 100 mg capsule 100 mg PO BID #20 caps 09/07/22 [Rx Last Taken Unknown] lamotrigine 100 mg tablet 100 mg PO BID #60 tabs 09/09/22 [Rx Last Taken Unknown] primidone 50 mg tablet 100 mg (2 x 50 mg) PO TID tremor #180 tabs 09/09/22 [Rx Last Taken Unknown] Allergy/AdvReac Type Severity Reaction Status Date / Time bee venom protein (honey bee) Allergy Severe Anaphylaxis Verified 09/09/22 20:14 tuberculin, purified protein Allergy Severe Swelling Verified 09/09/22 20:14 deriva Family History Mother Myocardial infarction Brother Myocardial infarction Surgical History finger surgery History of coronary artery bypass surgery (~09/21/21) History of lumbar puncture (~04/2017) lymph node resection S/P triple vessel bypass Stented coronary artery (10/06/17) Social History household members: family Smoking Status: Current every day smoker tobacco type: cigarettes Tobacco: How many years used: 61 Electronic Cigarette Use: not used second hand exposure: Yes alcohol intake: current alcohol intake frequency: a few times a month Alcohol type: hard liquor details: Patient reduced his alcohol intake when 'his lady passed in 2014' substance use type: does not use caffeine: Yes Type: carbonated beverages and coffee ROS ROS ED ROS Narrative Unable to obtain review of systems from him he is postictal. Most of the his tory is from family. EXAM Physical Exam Narrative Exam Narrative: Physical exam General: Patient appears chronically ill. He is now postictal. Head: Normocephalic, old abrasion on top of his head. Eyes: Conjunctiva not pale. Pupils are 3 mm and reactive ENT: Moist mucous membranes. Normal tongue without abrasions Neck: Supple, Nontender, No lymphadenopathy Cardiovascular: Regular rate, Regular rhythm. Midline scar from prior cardiothoracic surgery Respiratory: No distress, CTA bilaterally Abdomen: Soft, Nontender, Nondistended Back: Nontender, Normal Inspection. Negative for: CVA tenderness Extremities: Nontender, No edema. Full range of motion without trauma Skin: Normal color, No rash Neurological: Somnolent but arousable, he is still confused. He has no focal deficit. He does have a Parkinson's tremor which I am assured by family members that this is chronic tremor. Const Vital Signs: 10/20/22 20:16 Temperature 97.6 F L Temperature Source Temporal Pulse Rate 60 Respiratory Rate 18 Blood Pressure 111/60 Blood Pressure Mean 77 Pulse Ox 97 Oxygen Delivery Method Room Air MDM MDM MDM Narrative Medical decision making narrative: Patient was observed in the ED I reevaluated him. Now he is no longer pos tictal. He is lucid and coherent understands what happened to him. He appears well there is no signs of injury. CT is unremarkable. Blood work is unremarkable. I had a conversation with family and they feel like he is safe for discharge she will be discharged in stable condition. If any changes she is to return. At this time there is no reason for his seizure other than his seizure disorder, he is not withdrawing from medications or drugs, he has no fevers or signs of any kind of infection, he has no electrolyte abnormalities like sodium because of seizure. Lab Data Labs: Laboratory Results - last 24 hr 10/20/22 20:33 WBC 9.8 RBC 3.85 L Hgb 13.2 Hct 38.6 L MCV 100.3 H MCH 34.3 H MCHC 34.2 RDW Std Deviation 48.1 H RDW Coeff of Verito 13.0 Plt Count 240 MPV 9.8 Immature Gran % (Auto) 0.200 Neut % (Auto) 35.2 L Lymph % (Auto) 45.3 H Josephine % (Auto) 10.2 H Eos % (Auto) 8.5 H Baso % (Auto) 0.6 Absolute Neuts (auto) 3.5 Absolute Lymphs (auto) 4.44 Nucleated RBC % 0 Differential Comment SCANNED Atypical Lymphocytes RARE Sodium 138 Potassium 4.1 Chloride 105 Carbon Dioxide 31.0 Anion Gap 2 L BUN 16 Creatinine 1.03 Estim Creat Clear Calc 63.79 Est GFR (MDRD) Af Amer 92 Est GFR (MDRD) Non-Af 76 BUN/Creatinine Ratio 15.5 Glucose 93 Lactic Acid 1.2 Calcium 8.6 Total Bilirubin 0.40 AST 18 ALT 27 Alkaline Phosphatase 84 Total Protein 6.4 Albumin 3.3 Globulin 3.1 Albumin/Globulin Ratio 1.1 Radiography Diagnostic Testing: Clinical Impression(s) from Imaging Studies Brain CT 10/20/22 20:53 IMPRESSION: No acute findings in the head/brain. Electronically Signed: Aubrey Adams MD at 21:14 EDT , EKG Initial EKG: Comments: Sinus rhythm with a rate of 57. Normal MS interval. Normal QTc interval. Left axis deviation. Nonspecific ST changes. No acute ischemic changes. Interpreted by emergency doctor Discharge Plan Triage Chief Complaint: Seizure ED Provider: Zaki Estevez Dx/Rx/DC Orders Clinical Impression: Epilepsy, Seizure, Parkinsonism Instructions: Discharge Instructions for Epilepsy Prescriptions: No Action primidone 50 mg tablet 100 mg PO TID Qty: 180 5RF lamotrigine 100 mg tablet 100 mg PO BID Qty: 60 5RF doxycycline hyclate 100 mg capsule 100 mg PO BID Qty: 20 0RF ondansetron 4 mg tablet,disintegrating 4 mg PO Q6H PRN (Reason: nausea and vomiting) Qty: 10 0RF acetaminophen 500 mg capsule 1,000 mg PO Q6H PRN (Reason: pain) Qty: 120 1RF Rx Instructions: 14 day #28 folic acid 1 mg tablet 1 mg PO DAILY Qty: 90 3RF magnesium oxide 400 mg (241.3 mg magnesium) tablet 400 mg PO DAILY Qty: 90 3RF thiamine HCl (vitamin B1) 100 mg tablet 100 mg PO TID Qty: 90 1RF ascorbate calcium (vitamin C) 500 mg tablet 500 mg PO DAILY Qty: 90 1RF aspirin [Adult Aspirin Regimen] 81 mg tablet,delayed release (DR/EC) 81 mg PO DAILY Qty: 90 3RF clopidogrel [Plavix] 75 mg tablet 75 mg PO DAILY Qty: 90 3RF ferrous sulfate [FeroSul] 325 mg (65 mg iron) tablet 325 mg PO DAILY Qty: 90 3RF multivitamin with folic acid [Daily-Tin (with folic acid)] 400 mcg tablet 1 tab PO DAILY Qty: 90 3RF amiodarone 200 mg tablet 100 mg PO DAILY Qty: 90 1RF Rx Instructions: take 200 mg daily for 5 days and 1/2 tablet there after atorvastatin 40 mg tablet 40 mg PO QHS Qty: 30 12RF Primary Care Provider: Yamilet Medina Referrals: Yamilet Medina MD [Primary Care Provider] - 3-5 Days Disposition Disposition: Home, Self Care
[2022-10-20] MEDS: 0.9% Normal Saline 1,000 ML 1000 ML IV (20:41)
[2022-10-20 20:42] LABS: Absolute Lymphocyte Count 4.44 X10^3/uL (0.83-4.51); Absolute Neutrophil Count 3.5 X10^3/uL (2.0-7.7); Basophil# 0.06 X10^3/uL; Basophil% 0.6 % (0-1); Eosinophil# 0.83 X10^3/uL; Eosinophils% 8.5 % (0-5); Hematocrit 38.6 % (40-54); Hemoglobin 13.2 g/dL (13.0-16.5); Lymphocyte # 4.44 X10^3/ul (0.83-4.51); Lymphocyte % 45.3 % (19-41); Mean Corp Hgb Conc 34.2 g/dL (32-36); Mean Corpuscular Hgb 34.3 pg (27.0-32.0); Mean Corpuscular Volume 100.3 fL (80-94); Mean Platelet Vol. 9.8 fl (6.2-12.0); Monocyte% 10.2 % (0-10); NRBC Flagged by Analyzer 0 % (0-5); Neutrophil # 3.46 X10^3/uL (2.7-7.7); Neutrophil % 35.2 % (47-70); POSITIVE MORPHOLOGY YES; Platelet Count 240 K/mm3 (150-450); RBC Distribution Width SD 48.1 fl (35.1-43.9); Red Blood Count 3.85 M/mm3 (4.6-6.2); White Blood Count 9.8 K/mm3 (4.4-11.0)
[2022-10-20 20:47] LABS: Differential Indicated SCAN CRITERIA MET
--- NOTE | 2022-10-20 20:53 | CT_ITS ---
EXAM: CT HEAD WITHOUT INTRAVENOUS CONTRAST CLINICAL INDICATION: trauma TECHNIQUE: Multiple axial images were obtained of the head without intravenous contrast. This CT exam was performed using one or more of the following dose reduction techniques: automated exposure control, adjustment of the mA and/or kV according to patient size, and/or use of iterative reconstruction technique. RADIATION DOSE: CTDIvol = 44.99 mGy, DLP = 779.24 mGy-cm COMPARISON: 6.8.23 FINDINGS: BRAIN AND EXTRA-AXIAL SPACES: Stable encephalomalacia of the right temporal parietal occipital region, from previous infarct. No intra- or extra-axial hemorrhage. No intracranial mass or mass effect. Posterior fossa structures are unremarkable. Ventricles are appropriate for age. No hydrocephalus. Basal cisterns are patent. BONES/JOINTS: Unremarkable. No discrete lytic or blastic abnormalities. SINUSES: Unremarkable as visualized. Clear. MASTOID AIR CELLS: Unremarkable. Clear. ORBITS: Visualized globes, extraocular muscles, optic nerves and retrobulbar fat appear unremarkable. CT/Brain/Head without Contrast IMPRESSION: No acute findings in the head/brain. Electronically Signed: Aubrey Adams MD at 21:14 EDT ,
[2022-10-20 21:06] LABS: ALB/GLOB Ratio 1.1 RATIO (0.9-2.4); AST(SGOT) 18 U/L (15-37); Alanine Aminotransfer ALT/SGPT 27 U/L (16-61); Albumin, Serum 3.3 g/dL (3.2-5.0); Alkaline Phosphatase 84 U/L (45-117); Anion Gap 2 (5-15); BUN 16 mg/dL (7-18); BUN/Creat Ratio 15.5 RATIO (10-20); Calcium,Total 8.6 mg/dL (8.5-10.1); Chloride 105 mmol/L (98-107); Creatinine, Serum 1.03 mg/dL (0.70-1.30); EST Glomerular Filtration Rate 76 mL/min (>60); Est Glom Filt Rate - Afr Amer 92 mL/min (>60); Estimated Creatinine Clearance 63.79 ml/min; Globulin 3.1 g/dL (2.2-4.2); Glucose 93 mg/dL (74-106); Potassium 4.1 mmol/L (3.5-5.1); Protein, Total 6.4 g/dL (6.4-8.2); Sodium Level 138 mmol/L (136-145)
[2022-10-20] MEDS: levETIRAcetam IV 1,000 MG/100 ML BAG 400 MG IV (21:14)
[2022-10-20 21:19] LABS: Atypical Lymphocyte RARE %; Differential Comment SCANNED
[2022-10-20 21:34] LABS: Lactic Acid 1.2 mmol/L (0.4-1.9)
[2022-10-20 22:21] VITALS: BP 127/89; PULSE 64; RESP 17; O2SAT 99
== END 2022-10-20 22:22 | disposition home or self-care (01) ==
PROVIDERS: Emergency Provider Emergency Medicine; PCP Internal Medicine; Visit Provider Emergency Medicine
DX: G40.909 Epilepsy, unspecified, not intractable, without status epilepticus (principal); G20 Parkinson's disease; I25.10 Atherosclerotic heart disease of native coronary artery without angina pectoris; E78.5 Hyperlipidemia, unspecified; M54.9 Dorsalgia, unspecified; F17.210 Nicotine dependence, cigarettes, uncomplicated; G89.29 Other chronic pain
CPT/HCPCS: 70450; 80053; 83605; 85025; 93005; 96361; 96365; 99285; J7030; A4216

== ENCOUNTER 2022-11-01 21:05 | Observation (INO) | payer MEDICARE, MEDICAID, SELFPAY ==
[2022-11-01 21:07] VITALS: BP 107/68; PULSE 65; RESP 15; TEMP 36.2; O2SAT 98; BMI 22.1
--- NOTE | 2022-11-01 21:43 | CT_ITS ---
INDICATION: altered LOC, sz EXAMINATION: CT BRAIN - CT Head or Brain W/O Contrast Injection TECHNIQUE: Multiple axial images were obtained of the head without intravenous contrast. A radiation dose optimization technique was used for this scan. IV Contrast dosage and agent: None. RADIATION DOSAGE (If Supplied By Facility): CTDIvol = ( 44.99 ) mGy, DLP = ( 829.85 ) mGycm COMPARISON: 10/20/2022 FINDINGS: HEMISPHERES: 1. The cerebral parenchyma, ventricular system, subarachnoid spaces have unchanged configuration and density. There is a normal gyral pattern. There is normal miguel/white differentiation. No midline shift.. 2. There is focal area of encephalomalacic gliosis and mild volume loss involving the RIGHT hemisphere localized at the level of the RIGHT inferior parietal lobule and lateral convexity of the RIGHT occipital lobe. Mild involvement with the RIGHT superior temporal gyrus. There has been negligible interval change in size or distribution. 3. No intraparenchymal mass, hemorrhage, or acute territorial infarct. CEREBELLUM - BRAINSTEM: The cerebellum, brainstem, basilar and suprasellar cisterns have normal appearance. No Chiari malformation. PITUITARY: Infundibulum and pituitary have normal configuration. Midline structures appear normal. CSF SPACES: Appropriate for age. No hydrocephalus. Basal cisterns are patent. VESSELS: 1. Moderate carotid vascular calcifications. 2. No hyperdense vascular signs noted.. ORBITS AND PARANASAL SINUSES: 1. Normal appearance of the bony orbits. Normal appearance of the globes and retrobulbar soft tissues.. 2. Chronic ethmoid sinus mucosal thickening. There is significant leftward septal deviation with narrowing of the LEFT nasal passages. LEFT inferior turbinate hypertrophy is incidentally noted. No nasal fractures identified. No nasal septal fracture. BONY ELEMENTS: Bony elements of the cranial vault, facial skeleton and skull base have normal appearance. SCALP AND SOFT TISSUES: Normal appearance of the soft tissues of the scalp and the visualized face OTHER: None ASPECTS Score for Acute Strokes: 10 CT/Brain/Head without Contrast IMPRESSION: 1. Stable exam. 2. Encephalomalacic change and chronic gliosis in the RIGHT hemisphere localized within the RIGHT inferior parietal lobule, RIGHT temporal lobe and RIGHT occipital lobe without change. 3. No intracranial mass, hemorrhage or acute territorial infarct. 4. Chronic ethmoid sinus disease. Electronically Signed: Juan R George MD at 22:40 EDT ,
--- NOTE | 2022-11-01 21:44 | CT_ITS ---
INDICATION: upper abd pain, ventral hernia EXAMINATION: CT ABDOMEN AND PELVIS WITHOUT CONTRAST - CT Abdomen And Pelvis W/O Contrast Injection TECHNIQUE: Helically acquired images were obtained of the abdomen and pelvis without oral or IV contrast. A radiation dose optimization technique was used for this scan. IV Contrast dosage and agent: None. Oral contrast: None. RADIATION DOSAGE (If Supplied By Facility): CTDIvol = ( 6.52 ) mGy, DLP = ( 337.19 ) mGycm COMPARISON: 04/10/2022 FINDINGS: LOWER CHEST: Atelectasis versus a moderate-sized pulmonary nodule at the LEFT lung base measuring 11 x 13 mm. Minimal atelectasis at the RIGHT base. Remaining visualized lungs are clear. No cardiomegaly or pericardial effusion. No evidence of coronary vascular calcifications. Subtle air density is noted along the anterior aspect of the cardiac contour, there is significant motion artifact, this may represent introduced gas from venipuncture. LIVER: The liver is large without change. No intrahepatic masses or ductal dilatation. GALLBLADDER AND BILIARY TREE: No calcified gallstones. No gallbladder distension or wall edema. No intra- or extrahepatic biliary ductal dilation. PANCREAS: No focal cystic or solid mass. SPLEEN: Normal size without focal cystic or solid mass. ADRENAL GLANDS: No nodules. KIDNEYS AND URETERS: Normal renal size and position. No hydronephrosis. PERITONEUM: No ascites or free air. No other fluid collection. BOWEL: Large small bowel segments have normal configuration, moderate amount retained stool noted. The appendix is not visualized. No bowel obstruction. No free fluid or free air. No stomach or bowel distension. No focal inflammatory change. LYMPH NODES: No enlarged mesenteric or retroperitoneal lymph nodes. VESSELS: Aorta is non-dilated. URINARY BLADDER: Unremarkable. REPRODUCTIVE ORGANS: No pelvic masses. ABDOMINAL WALL: No discrete abdominal or pelvic wall hernia. BONES: No acute fractures or destructive bony process noted. Mild lumbar spondylosis particularly at L5-S1. Other: Diffuse cachexia again demonstrated. CT/Abdomen/Pelvis without Cont IMPRESSION: 1. Stable exam. 2. 11 x 13 mm noncalcified pulmonary nodule at the LEFT lung base. Findings are stable. Consider follow-up based on included recommendations. 3. Stable borderline hepatomegaly. No intrahepatic masses or ductal dilatation. 4. No evidence cholelithiasis or biliary ductal dilatation. 5. No evidence of renal calcifications or obstructive uropathy. 6. No masses bowel obstruction abscess free fluid or free air. Moderate stool burden is noted. 7. Diffuse cachexia again noted. Reference recommendations for pulmonary nodule follow-up: Fleischner Report Guidelines 2017 [place]let et al, Radiology 2017: https://pubs.rsna.org/doi/pdf/[email or web address] Nodule size: <6 mm SOLITARY low-risk: no follow-up needed high-risk: optional CT at 12 months MULTIPLE low-risk: no follow-up needed high-risk: optional CT at 12 months --- Nodule size: 6-8 mm SOLITARY low-risk: follow-up at 6-12 months, then consider further follow-up at 18-24 months high-risk: initial follow-up CT at 6-12 months and then at 18-24 months if no change MULTIPLE low-risk: follow-up CT at 3-6 months, then consider further follow-up at 18-24 months high-risk: initial follow-up CT at 3-6 months and then at 18-24 months ------- Nodule size: >8 mm SOLITARY either low or high-risk patients consider follow-up CT at 3 months, and/or CT-PET, and/or biopsy MULTIPLE low-risk: follow-up CT at 3-6 months, then consider further follow-up at 18-24 months high-risk: initial follow-up CT at 3-6 months and then at 18-24 months Electronically Signed: Juan R George MD at 23:13 EDT ,
--- NOTE | 2022-11-01 21:45 | EDS_ITS ---
HPI History of Present Illness Chief Complaint: Seizure Narrative Narrative: History provided by family, it is limited from the patient due to the level of consciousness. He has a history of epilepsy he is on lamotrigine and follows with Dr. Sandhu at neuroscience in [place] but has not seen him in a little while. He had a second seizure in the last month which is unusual usually has 1 every couple of months or so. He was having emotional distress today when family started talking him about his who from cancer, couple hours later he was sitting at the table and started having a full body tonic-clonic seizure with altered level of consciousness during this, family help move him to a couch so he would not fall and injure himself, and seizure activity proceeded for at least 15 minutes, family states that is when EMS showed up and took him to the ambulance, upon bringing him here he was postictal after receiving an injection of midazolam. Family states he is on lamotrigine for his seizure activity and has been compliant with that. No recent illness that they know of. [facility] Medical History Abnormal electrocardiogram Atherosclerotic heart disease of [place] coronary artery without angina pectoris Atrial septal aneurysm Chronic back pain Complex laceration of scalp CVA (cerebral vascular accident) Fall from ladder Heart valve problem History of left heart catheterization (LHC) (~05/27/21) Hyperlipidemia Nicotine dependence Postoperative atrial fibrillation Scalp pain Scalp wound Seizure Syncope and collapse Home Medications acetaminophen 500 mg capsule 1,000 mg (2 x 500 mg) PO Q6H PRN pain #120 caps 02/24/22 [Rx Last Taken Unknown] folic acid 1 mg tablet 1 mg PO DAILY #90 tabs 03/30/22 [Rx Last Taken Unknown] magnesium oxide 400 mg (241.3 mg magnesium) tablet 400 mg PO DAILY #90 tabs 03/30/22 [Rx Last Taken Unknown] ondansetron 4 mg disintegrating tablet 4 mg PO Q6H PRN nausea and vomiting #10 tabs 04/10/22 [Rx Last Taken Unknown] ascorbate calcium (vitamin C) 500 mg tablet 500 mg PO DAILY #90 tabs 06/16/22 [Rx Last Taken Unknown] aspirin 81 mg tablet,delayed release (Adult Aspirin Regimen) 81 mg PO DAILY #90 tabs 06/16/22 [Rx Last Taken Unknown] clopidogrel 75 mg tablet (Plavix) 75 mg PO DAILY #90 tabs 06/16/22 [Rx Last Taken Unknown] ferrous sulfate 325 mg (65 mg iron) tablet (FeroSul) 325 mg PO DAILY #90 tabs 06/16/22 [Rx Last Taken Unknown] multivitamin with folic acid 400 mcg tablet (Daily-Tin (with folic acid)) 1 tab PO DAILY #90 tabs 06/16/22 [Rx Last Taken Unknown] thiamine HCl (vitamin B1) 100 mg tablet 100 mg PO TID #90 tabs 06/16/22 [Rx Last Taken Unknown] amiodarone 200 mg tablet 100 mg (1/2 x 200 mg) PO DAILY #90 tabs 06/18/22 [Rx Last Taken Unknown] atorvastatin 40 mg tablet 40 mg PO QHS #30 tabs 08/10/22 [Rx Last Taken Unknown] lamotrigine 100 mg tablet 100 mg PO BID #60 tabs 09/09/22 [Rx Last Taken Unknown] primidone 50 mg tablet 100 mg (2 x 50 mg) PO TID tremor #180 tabs 09/09/22 [Rx Last Taken Unknown] Allergy/AdvReac Type Severity Reaction Status Date / Time bee venom protein (honey bee) Allergy Severe Anaphylaxis Verified 09/09/22 20:14 tuberculin, purified protein Allergy Severe Swelling Verified 09/09/22 20:14 deriva Family History Mother Myocardial infarction Brother Myocardial infarction Surgical History finger surgery History of coronary artery bypass surgery (~09/21/21) History of lumbar puncture (~04/2017) lymph node resection S/P triple vessel bypass Stented coronary artery (10/06/17) Social History household members: family Smoking Status: Current every day smoker tobacco type: cigarettes Tobacco: How many years used: 61 Electronic Cigarette Use: not used second hand exposure: Yes alcohol intake: current alcohol intake frequency: a few times a month Alcohol type: hard liquor details: Patient reduced his alcohol intake when 'his lady passed in 2014' substance use type: does not use caffeine: Yes Type: carbonated beverages and coffee ROS ROS ED Review of Systems ROS Unobtainable: due to mental status EXAM Physical Exam Const Vital Signs: 11/01/22 21:07 11/01/22 21:50 11/01/22 23:15 Temperature 97.2 F L Temperature Source Temporal Pulse Rate 65 60 58 L Respiratory Rate 15 18 16 Blood Pressure 107/68 111/72 109/70 Blood Pressure Mean 81 85 83 Pulse Ox 98 100 97 Oxygen Delivery Method Room Air Nasal Cannula Room Air Oxygen Flow Rate (L/min) 2 Positive well nourished and well developed Constitutional Narrative: Lethargic General Appearance ED: well developed HEENT Reports moist mucous membranes normocephalic and atraumatic Eyes PERRL and EOMs intact bilaterally Neck full ROM and supple Resp normal respiratory effort and clear to auscultation bilaterally Cardio regular rate, regular rhythm and no murmurs GI non-distended GI Narrative: Tender epigastrium with rebound tenderness, there is a small incisional ventral hernia at this location which is only present when the patient flexes his abdominal musculature. No other areas of tenderness. No pulsatile mass. Auscultation: normoactive bowel sounds Palpation: soft Back/Spine no CVA tenderness General Back: other FROM Extremity normal to inspection General Extremety ED: Negative for edema, pulses abnormal or tenderness General Extremity: Negative for edema or pulses abnormal Neuro CN's II-XII intact bilaterally Neuro Narrative: Lethargic/stuporous. Opens eyes to voice, mumbles, does not follow commands. Robb Coma Scale: document GCS findings To Voice Withdraws to Pain Incomprehensible 9 Psych Psych Narrative: Limited exam Skin no rashes or lesions noted and no wounds MDM MDM MDM Narrative Medical decision making narrative: Shortly after I left the room, patient started having a tonic-clonic generalized seizure. Nurses alerted me, I asked him to get Ativan 1 mg, I went back into the room after I ordered it, the patient did stop seizing and they gave the medication anyway. Awaited work-up including CT of the head, I reviewed the images and the report which I agree with, basically negative for any acute or chronic abnormalities and encephalomalacia noted. The rest of the patient's work-up is unremarkable. I did a CT of his abdomen/pelvis, because even when he was unconscious, he was involuntarily guarding due to tenderness in the epigastrium. I reviewed the results and the images there as well which I agree with, basically negative for any acute lots of chronic issues and stool burden. I reevaluated the patient he is much more alert now but still little somnolent, he is disoriented and hallucinating. He has had no more seizure activity. I discussed with the family, they think he is getting dementia because his memory has been going but the hallucinations are new. It is late at night and he is recently had a lot of benzos and is very sleepy. I think admission is warranted at least based on that. I did discuss with family, he has not had his nighttime dose of lamotrigine tonight yet, and since he is still somnolent I would rather give him something parenteral so ordering Keppra 1000 mg load. History & Record Review Discussion w/independent historian: Family Lab Data Attestation: I reviewed the patient's lab results. Labs: Laboratory Results - last 24 hr 11/01/22 11/01/22 21:30 22:20 WBC 11.9 H RBC 4.09 L Hgb 13.7 Hct 42.6 MCV 104.2 H MCH 33.5 H MCHC 32.2 RDW Std Deviation 49.4 H RDW Coeff of Verito 12.8 Plt Count 234 MPV 9.9 Immature Gran % (Auto) 0.200 Neut % (Auto) 46.8 L Lymph % (Auto) 40.6 [place] % (Auto) 5.3 Eos % (Auto) 6.5 H Baso % (Auto) 0.6 Absolute Neuts (auto) 5.6 Absolute Lymphs (auto) 4.85 H Nucleated RBC % 0 Atypical Lymphocytes 2+ Platelet Estimate ADEQUATE RBC Morphology N CHROM Anisocytosis 1+ Macrocytosis 1+ Ovalocytes RARE Sodium 135 L Potassium 4.5 Chloride 105 Carbon Dioxide 25.0 Anion Gap 5 BUN 15 Creatinine 1.00 Estim Creat Clear Calc 67.90 Est GFR (MDRD) Af Amer 96 Est GFR (MDRD) Non-Af 79 BUN/Creatinine Ratio 15.0 Glucose 77 Lactic Acid 1.1 Calcium 8.4 L Total Bilirubin 0.50 AST 29 ALT 27 Alkaline Phosphatase 79 Troponin I High Sens 7 Total Protein 6.6 Albumin 3.3 Globulin 3.3 Albumin/Globulin Ratio 1.0 Lipase 14 Radiography Diagnostic Testing: Clinical Impression(s) from Imaging Studies Brain CT 11/01/22 21:43 IMPRESSION: 1. Stable exam. 2. Encephalomalacic change and chronic gliosis in the RIGHT hemisphere localized within the RIGHT inferior parietal lobule, RIGHT temporal lobe and RIGHT occipital lobe without change. 3. No intracranial mass, hemorrhage or acute territorial infarct. 4. Chronic ethmoid sinus disease. Electronically Signed: Juan R George MD at 22:40 EDT , Abdomen/Pelvis CT 11/01/22 21:44 IMPRESSION: 1. Stable exam. 2. 11 x 13 mm noncalcified pulmonary nodule at the LEFT lung base. Findings are stable. Consider follow-up based on included recommendations. 3. Stable borderline hepatomegaly. No intrahepatic masses or ductal dilatation. 4. No evidence cholelithiasis or biliary ductal dilatation. 5. No evidence of renal calcifications or obstructive uropathy. 6. No masses bowel obstruction abscess free fluid or free air. Moderate stool burden is noted. 7. Diffuse cachexia again noted. Reference recommendations for pulmonary nodule follow-up: Fleischner Report Guidelines 2017 MacMahon et al, Radiology 2017: https://pubs.rsna.org/doi/pdf/10.1148/radiol.8587117476 Nodule size: <6 mm SOLITARY low-risk: no follow-up needed high-risk: optional CT at 12 months MULTIPLE low-risk: no follow-up needed high-risk: optional CT at 12 months -- Nodule size: 6-8 mm SOLITARY low-risk: follow-up at 6-12 months, then consider further follow-up at 18-24 months high-risk: initial follow-up CT at 6-12 months and then at 18-24 months if no change MULTIPLE low-risk: follow-up CT at 3-6 months, then consider further follow-up at 18-24 months high-risk: initial follow-up CT at 3-6 months and then at 18-24 months ------ Nodule size: >8 mm SOLITARY either low or high-risk patients consider follow-up CT at 3 months, and/or CT-PET, and/or biopsy MULTIPLE low-risk: follow-up CT at 3-6 months, then consider further follow-up at 18-24 months high-risk: initial follow-up CT at 3-6 months and then at 18-24 months Electronically Signed: Juan R George MD at 23:13 EDT , Rhythm Strip Rhythm Strip: Sinus Rhythm Rate: 65 Ectopy: None Management Discussion w/another healthcare provider: Hospitalist Discharge Plan Triage Chief Complaint: Seizure ED Provider: Brennan Styles Dx/Rx/DC Orders Clinical Impression: Acute encephalopathy, Epilepsy, Seizures Prescriptions: No Action primidone 50 mg tablet 100 mg PO TID Qty: 180 5RF lamotrigine 100 mg tablet 100 mg PO BID Qty: 60 5RF ondansetron 4 mg tablet,disintegrating 4 mg PO Q6H PRN (Reason: nausea and vomiting) Qty: 10 0RF acetaminophen 500 mg capsule 1,000 mg PO Q6H PRN (Reason: pain) Qty: 120 1RF Rx Instructions: 14 day #28 folic acid 1 mg tablet 1 mg PO DAILY Qty: 90 3RF magnesium oxide 400 mg (241.3 mg magnesium) tablet 400 mg PO DAILY Qty: 90 3RF thiamine HCl (vitamin B1) 100 mg tablet 100 mg PO TID Qty: 90 1RF ascorbate calcium (vitamin C) 500 mg tablet 500 mg PO DAILY Qty: 90 1RF aspirin [Adult Aspirin Regimen] 81 mg tablet,delayed release (DR/EC) 81 mg PO DAILY Qty: 90 3RF clopidogrel [Plavix] 75 mg tablet 75 mg PO DAILY Qty: 90 3RF ferrous sulfate [FeroSul] 325 mg (65 mg iron) tablet 325 mg PO DAILY Qty: 90 3RF multivitamin with folic acid [Daily-Tin (with folic acid)] 400 mcg tablet 1 tab PO DAILY Qty: 90 3RF amiodarone 200 mg tablet 100 mg PO DAILY Qty: 90 1RF Rx Instructions: take 200 mg daily for 5 days and 1/2 tablet there after atorvastatin 40 mg tablet 40 mg PO QHS Qty: 30 12RF Primary Care Provider: Yamilet Medina Referrals: Yamilet Medina MD [Primary Care Provider] -
[2022-11-01] MEDS: 0.9% Normal Saline 1,000 ML 1000 ML IV (21:49)
[2022-11-01] MEDS: LORazepam 2 MG/ML Syringe 1 MG IV (21:49)
[2022-11-01 21:50] VITALS: BP 111/72; PULSE 60; RESP 18; O2SAT 100
--- NOTE | 2022-11-01 21:50 | ED.RN ---
LORAZEPAM 1MG OVERRODE FOR SEIZURE PER DR ORDER.
--- NOTE | 2022-11-01 21:58 | ED.RN ---
1430 TONIC CLONIC SEIZURE LASTING 1 MINUTE
[2022-11-01 22:04] LABS: Absolute Lymphocyte Count 4.85 X10^3/uL (0.83-4.51); Absolute Neutrophil Count 5.6 X10^3/uL (2.0-7.7); Basophil# 0.07 X10^3/uL; Basophil% 0.6 % (0-1); Eosinophil# 0.78 X10^3/uL; Eosinophils% 6.5 % (0-5); Hematocrit 42.6 % (40-54); Hemoglobin 13.7 g/dL (13.0-16.5); Lymphocyte # 4.85 X10^3/ul (0.83-4.51); Lymphocyte % 40.6 % (19-41); Mean Corp Hgb Conc 32.2 g/dL (32-36); Mean Corpuscular Hgb 33.5 pg (27.0-32.0); Mean Corpuscular Volume 104.2 fL (80-94); Mean Platelet Vol. 9.9 fl (6.2-12.0); Monocyte# 0.63 X10^3/uL; Monocyte% 5.3 % (0-10); NRBC Flagged by Analyzer 0 % (0-5); Neutrophil # 5.59 X10^3/uL (2.7-7.7); Neutrophil % 46.8 % (47-70); POSITIVE MORPHOLOGY YES; Platelet Count 234 K/mm3 (150-450); RBC Distribution Width CV 12.8 % (11.6-14.6); RBC Distribution Width SD 49.4 fl (35.1-43.9); Red Blood Count 4.09 M/mm3 (4.6-6.2); White Blood Count 11.9 K/mm3 (4.4-11.0)
[2022-11-01 22:19] LABS: Differential Indicated SCAN CRITERIA MET
[2022-11-01 22:28] LABS: AST(SGOT) 29 U/L (15-37); Alanine Aminotransfer ALT/SGPT 27 U/L (16-61); Albumin, Serum 3.3 g/dL (3.2-5.0); Alkaline Phosphatase 79 U/L (45-117); Anion Gap 5 (5-15); BUN 15 mg/dL (7-18); Calcium,Total 8.4 mg/dL (8.5-10.1); Chloride 105 mmol/L (98-107); EST Glomerular Filtration Rate 79 mL/min (>60); Est Glom Filt Rate - Afr Amer 96 mL/min (>60); Globulin 3.3 g/dL (2.2-4.2); Glucose 77 mg/dL (74-106); Lipase 14 U/L (13-75); Potassium 4.5 mmol/L (3.5-5.1); Protein, Total 6.6 g/dL (6.4-8.2); Sodium Level 135 mmol/L (136-145); Troponin-I HS 7 pg/mL (3.0-78.0)
[2022-11-01 23:04] LABS: Anisocytosis 1+; Atypical Lymphocyte 2+ %; Macrocytosis 1+; Ovalocyte RARE; Platelet Estimate ADEQUATE (ADEQ); Red Cell Morphology N CHROM NORMAL (NORM C&C)
[2022-11-01 23:06] LABS: Lactic Acid 1.1 mmol/L (0.4-1.9)
[2022-11-01 23:15] VITALS: BP 109/70; PULSE 58; RESP 16; O2SAT 97
--- NOTE | 2022-11-01 23:46 | PCM.HP.STD ---
HPI - General General Date of Admission: 11/01/22 Date of Service: 11/01/22 Chief Complaint: Seizure disorder HPI Narrative RADHA BRENNAN, is a 67 M who presents to the emergency room after experiencing a seizure at home. Patient has a history of seizure disorder for which he takes Lamictal routinely but started reminiscing about his who has been since 2014 and became stressed and induced a seizure at home lasting several minutes and ambulance was called. He had a recurrent seizure here witnessed in the emergency room that was full tonic-clonic. He has received several doses of benzodiazepine including midazolam and Ativan during the day and now is more confused and postictal. Patient is poor historian at present time and per friends visiting he is not at his current baseline mental status. Currently does not appear to be in any acute distress and will be admitted for observation for recovery from his seizures. He will be given a dose of Keppra this evening as he responded well to it previously but did not continue it as an outpatient. He sees Dr. Sandhu in [place] for neurology care. [facility] Medical History Abnormal electrocardiogram Atherosclerotic heart disease of [place] coronary artery without angina pectoris Atrial septal aneurysm Chronic back pain Complex laceration of scalp CVA (cerebral vascular accident) Fall from ladder Heart valve problem History of left heart catheterization (LHC) (~05/27/21) Hyperlipidemia Nicotine dependence Postoperative atrial fibrillation Scalp pain Scalp wound Seizure Syncope and collapse Home Medications acetaminophen 500 mg capsule 1,000 mg (2 x 500 mg) PO Q6H PRN pain #120 caps 02/24/22 [Rx Last Taken Unknown] folic acid 1 mg tablet 1 mg PO DAILY #90 tabs 03/30/22 [Rx Last Taken Unknown] magnesium oxide 400 mg (241.3 mg magnesium) tablet 400 mg PO DAILY #90 tabs 03/30/22 [Rx Last Taken Unknown] ondansetron 4 mg disintegrating tablet 4 mg PO Q6H PRN nausea and vomiting #10 tabs 04/10/22 [Rx Last Taken Unknown] ascorbate calcium (vitamin C) 500 mg tablet 500 mg PO DAILY #90 tabs 06/16/22 [Rx Last Taken Unknown] aspirin 81 mg tablet,delayed release (Adult Aspirin Regimen) 81 mg PO DAILY #90 tabs 06/16/22 [Rx Last Taken Unknown] clopidogrel 75 mg tablet (Plavix) 75 mg PO DAILY #90 tabs 06/16/22 [Rx Last Taken Unknown] ferrous sulfate 325 mg (65 mg iron) tablet (FeroSul) 325 mg PO DAILY #90 tabs 06/16/22 [Rx Last Taken Unknown] multivitamin with folic acid 400 mcg tablet (Daily-Tin (with folic acid)) 1 tab PO DAILY #90 tabs 06/16/22 [Rx Last Taken Unknown] thiamine HCl (vitamin B1) 100 mg tablet 100 mg PO TID #90 tabs 06/16/22 [Rx Last Taken Unknown] amiodarone 200 mg tablet 100 mg (1/2 x 200 mg) PO DAILY #90 tabs 06/18/22 [Rx Last Taken Unknown] atorvastatin 40 mg tablet 40 mg PO QHS #30 tabs 08/10/22 [Rx Last Taken Unknown] lamotrigine 100 mg tablet 100 mg PO BID #60 tabs 09/09/22 [Rx Last Taken Unknown] primidone 50 mg tablet 100 mg (2 x 50 mg) PO TID tremor #180 tabs 09/09/22 [Rx Last Taken Unknown] Allergy/AdvReac Type Severity Reaction Status Date / Time bee venom protein (honey bee) Allergy Severe Anaphylaxis Verified 09/09/22 20:14 tuberculin, purified protein Allergy Severe Swelling Verified 09/09/22 20:14 deriva Family History Mother Myocardial infarction Brother Myocardial infarction Surgical History finger surgery History of coronary artery bypass surgery (~09/21/21) History of lumbar puncture (~04/2017) lymph node resection S/P triple vessel bypass Stented coronary artery (10/06/17) Social History household members: family Smoking Status: Current every day smoker tobacco type: cigarettes Tobacco: How many years used: 61 Electronic Cigarette Use: not used second hand exposure: Yes alcohol intake: current alcohol intake frequency: a few times a month Alcohol type: hard liquor details: Patient reduced his alcohol intake when 'his lady passed in 2014' substance use type: does not use caffeine: Yes Type: carbonated beverages and coffee ROS Review of Systems ROS Unobtainable: due to encephalopathy and due to mental status Vital Signs Vital Signs Vital Signs: 11/01/22 21:07 11/01/22 21:50 11/01/22 23:15 Temperature 97.2 F L Temperature Source Temporal Pulse Rate 65 60 58 L Respiratory Rate 15 18 16 Blood Pressure 107/68 111/72 109/70 Blood Pressure Mean 81 85 83 Pulse Ox 98 100 97 Oxygen Delivery Method Room Air Nasal Cannula Room Air Oxygen Flow Rate (L/min) 2 Weight Weight: 149 lb 11.102 oz Body Mass Index (BMI) 22.1 Physical Exam Const Orientation / Consciousness: confused and lethargic HEENT normocephalic and head/scalp atraumatic Neck no lymphadenopathy Resp normal respiratory effort, normal air movement and clear to auscultation bilaterally Cardio regular rate, regular rhythm, S1 normal heart sound and S2 normal heart sound GI normal to inspection, nondistended, normoactive bowel sounds Extremity normal capillary refill Skin General Skin Exam: no breakdown Neuro Neuro Narrative: Unable to assess due to confusion Psych Thought Content: delusion(s) Results Lab / Micro Data 11/01/22 21:30 11/01/22 21:30 Labs: Laboratory Results - last 24 hr 11/01/22 21:30: WBC 11.9 H, RBC 4.09 L, Hgb 13.7, Hct 42.6, MCV 104.2 H, MCH 33.5 H, MCHC 32.2, RDW Std Deviation 49.4 H, RDW Coeff of Verito 12.8, Plt Count 234, MPV 9.9, Immature Gran % (Auto) 0.200, Neut % (Auto) 46.8 L, Lymph % (Auto) 40.6, [place] % (Auto) 5.3, Eos % (Auto) 6.5 H, Baso % (Auto) 0.6, Absolute Neuts (auto) 5.6, Absolute Lymphs (auto) 4.85 H, Nucleated RBC % 0, Atypical Lymphocytes 2+, Platelet Estimate ADEQUATE, RBC Morphology N CHROM, Anisocytosis 1+, Macrocytosis 1+, Ovalocytes RARE, Sodium 135 L, Potassium 4.5, Chloride 105, Carbon Dioxide 25.0, Anion Gap 5, BUN 15, Creatinine 1.00, Estim Creat Clear Calc 67.90, Est GFR (MDRD) Af Amer 96, Est GFR (MDRD) Non-Af 79, BUN/Creatinine Ratio 15.0, Glucose 77, Calcium 8.4 L, Total Bilirubin 0.50, AST 29, ALT 27, Alkaline Phosphatase 79, Troponin I High Sens 7, Total Protein 6.6, Albumin 3.3, Globulin 3.3, Albumin/Globulin Ratio 1.0, Lipase 14 11/01/22 22:20: Lactic Acid 1.1 Rhythm Strip Rhythm Strip: Sinus Rhythm Rate: 65 Ectopy: None Radiology Impression Brain CT 11/01/22 21:43 IMPRESSION: 1. Stable exam. 2. Encephalomalacic change and chronic gliosis in the RIGHT hemisphere localized within the RIGHT inferior parietal lobule, RIGHT temporal lobe and RIGHT occipital lobe without change. 3. No intracranial mass, hemorrhage or acute territorial infarct. 4. Chronic ethmoid sinus disease. Electronically Signed: Juan R George MD at 22:40 EDT , Abdomen/Pelvis CT 11/01/22 21:44 IMPRESSION: 1. Stable exam. 2. 11 x 13 mm noncalcified pulmonary nodule at the LEFT lung base. Findings are stable. Consider follow-up based on included recommendations. 3. Stable borderline hepatomegaly. No intrahepatic masses or ductal dilatation. 4. No evidence cholelithiasis or biliary ductal dilatation. 5. No evidence of renal calcifications or obstructive uropathy. 6. No masses bowel obstruction abscess free fluid or free air. Moderate stool burden is noted. 7. Diffuse cachexia again noted. Reference recommendations for pulmonary nodule follow-up: Fleischner Report Guidelines 2017 MacMahon et al, Radiology 2017: https://pubs.rsna.org/doi/pdf/10.1148/radiol.5631762148 Nodule size: <6 mm SOLITARY low-risk: no follow-up needed high-risk: optional CT at 12 months MULTIPLE low-risk: no follow-up needed high-risk: optional CT at 12 months Nodule size: 6-8 mm SOLITARY low-risk: follow-up at 6-12 months, then consider further follow-up at 18-24 months high-risk: initial follow-up CT at 6-12 months and then at 18-24 months if no change MULTIPLE low-risk: follow-up CT at 3-6 months, then consider further follow-up at 18-24 months high-risk: initial follow-up CT at 3-6 months and then at 18-24 months Nodule size: >8 mm SOLITARY either low or high-risk patients consider follow-up CT at 3 months, and/or CT-PET, and/or biopsy MULTIPLE low-risk: follow-up CT at 3-6 months, then consider further follow-up at 18-24 months high-risk: initial follow-up CT at 3-6 months and then at 18-24 months Electronically Signed: Juan R George MD at 23:13 EDT , Assessment & Plan Assessment/Plan (1) Seizures: (2) Acute encephalopathy: (3) History of coronary artery bypass surgery: PLAN: Plan 1 seizure disorder?admit patient to progressive care unit with seizure precautions, observe for further seizure activity and recovery from his previous surgeries. We will have Ativan as needed for any seizure activity. Continue Keppra started in the emergency room at discharge 2. Coronary artery disease history of coronary artery bypass?continue statin and other coronary element medications 3. DVT prophylaxis?low molecular weight heparin Charges/Coding Visit Charges OBSV E&M: [id number] Observ/hosp same date L2
[2022-11-02] MEDS: levETIRAcetam IV 1,000 MG/100 ML BAG 400 MG IV (00:11)
[2022-11-02 01:37] VITALS: BP 109/64; PULSE 61; RESP 12; TEMP 36.7; O2SAT 97
[2022-11-02 01:52] VITALS: BP 109/63; PULSE 74; RESP 14; TEMP 36.4; O2SAT 94
[2022-11-02 06:30] LABS: Anion Gap 0 (5-15); BUN 12 mg/dL (7-18); Calcium,Total 8.2 mg/dL (8.5-10.1); Chloride 110 mmol/L (98-107); Creatinine, Serum 0.92 mg/dL (0.70-1.30); EST Glomerular Filtration Rate 87 mL/min (>60); Est Glom Filt Rate - Afr Amer 105 mL/min (>60); Estimated Creatinine Clearance 65.33 ml/min; Glucose 95 mg/dL (74-106); Potassium 4.2 mmol/L (3.5-5.1); Sodium Level 139 mmol/L (136-145)
[2022-11-02 07:28] VITALS: O2SAT 94
[2022-11-02 07:39] VITALS: BP 104/61; PULSE 71; RESP 18; TEMP 37; O2SAT 94
--- NOTE | 2022-11-02 09:32 | CASEMGMT ---
MASTER CM: Call received from Soraya with [facility] Case Management. Updated provided to Soraya of pt's admission for continuity of care. Soraya states she has been in touch with pt's family and will be completing an application on this date for pt to receive waiver services. Mary Alice Ramon RN CM
[2022-11-02 09:43] LABS: Bacteria 0 SEEN /hpf (None Seen); Mucous, Urine 0 SEEN /hpf (<or=2+); Red Blood Cells-Urine 0 SEEN /hpf (0-5); Squamous Epithelial Cells - UA 0 SEEN /hpf (0-5); White Blood Cells 0 SEEN /hpf (0-5)
[2022-11-02] MEDS: Aspirin E.C. 81 MG Tablet PO (09:48)
[2022-11-02 09:49] LABS: Color, Urine Yellow (Yellow); Glucose, Dipstick Normal (Normal); Ketone-Dipstick Negative (Negative); Leukocyte Esterase-Dipstick Negative /ul (Negative); Nitrite-Dipstick Negative (Negative); Occult Blood-Urine 10 /ul (Negative); Protein-Dipstick Negative (Negative); Urine Bilirubin Dipstick Negative (Negative); Urine Clarity Clear (Clear); Urine Urobilinogen Normal (Normal)
[2022-11-02] MEDS: lamoTRIgine 100 MG Tablet PO (09:49)
[2022-11-02] MEDS: Amiodarone 200 MG Tablet 100 MG PO (09:50)
[2022-11-02] MEDS: Clopidogrel Bisulfate 75 MG Tablet PO (09:51)
[2022-11-02 10:04] LABS: Amphetamine Urine VISTA NEGATIVE (<1000 ng/mL); Barbiturate Urine VISTA POSITIVE (< 200 ng/mL); Benzodiazepine Urine VISTA POSITIVE (< 200 ng/mL); Cocaine Urine VISTA NEGATIVE (< 300 ng/mL); Ecstacy Urine VISTA NEGATIVE (< 500 ng/mL); Methadone Urine VISTA NEGATIVE (< 300 ng/mL); PCP Urine VISTA NEGATIVE (< 25 ng/mL); THC Urine VISTA NEGATIVE (< 50 ng/mL); Vista UDS pH Range 7
[2022-11-02 13:21] VITALS: BP 106/65; PULSE 79; RESP 16; TEMP 36.9; O2SAT 98
--- NOTE | 2022-11-02 13:29 | DS.PCM_ITS ---
Providers Date of Admission: 11/01/22 Date of Discharge: 11/02/22 Primary Care Physician: Dr. Yamilet Mednia MD Reason For Visit: SEIZURE DISORDER Diagnosis Discharge Diagnosis (1) Seizures: Status: Acute Code(s): R56.9 - Unspecified convulsions (2) History of coronary artery bypass surgery: Status: Acute Code(s): Z95.1 - Presence of aortocoronary bypass graft (3) Stented coronary artery: Status: Chronic Code(s): Z95.5 - Presence of coronary angioplasty implant and graft (4) Pulmonary nodule: Status: Acute Code(s): R91.1 - Solitary pulmonary nodule Plan #epilepsy w/ recurrence of seizures #Hx CAD w/ cabg #11 x 13 mm noncalcified pulmonary nodule at the LEFT lung base. Findings are stable. Medications at Discharge Home Medications acetaminophen 500 mg capsule 1,000 mg (2 x 500 mg) PO Q6H PRN pain #120 caps 02/24/22 folic acid 1 mg tablet 1 mg PO DAILY #90 tabs 03/30/22 magnesium oxide 400 mg (241.3 mg magnesium) tablet 400 mg PO DAILY #90 tabs 03/30/22 ondansetron 4 mg disintegrating tablet 4 mg PO Q6H PRN nausea and vomiting #10 tabs 04/10/22 ascorbate calcium (vitamin C) 500 mg tablet 500 mg PO DAILY #90 tabs 06/16/22 aspirin 81 mg tablet,delayed release (Adult Aspirin Regimen) 81 mg PO DAILY #90 tabs 06/16/22 clopidogrel 75 mg tablet (Plavix) 75 mg PO DAILY #90 tabs 06/16/22 ferrous sulfate 325 mg (65 mg iron) tablet (FeroSul) 325 mg PO DAILY #90 tabs 06/16/22 multivitamin with folic acid 400 mcg tablet (Daily-Tin (with folic acid)) 1 tab PO DAILY #90 tabs 06/16/22 thiamine HCl (vitamin B1) 100 mg tablet 100 mg PO TID #90 tabs 06/16/22 amiodarone 200 mg tablet 100 mg (1/2 x 200 mg) PO DAILY #90 tabs 06/18/22 atorvastatin 40 mg tablet 40 mg PO QHS #30 tabs 08/10/22 lamotrigine 100 mg tablet 100 mg PO BID #60 tabs 06/08/23 primidone 50 mg tablet 100 mg (2 x 50 mg) PO TID tremor #180 tabs 09/09/22 Hospital Course Summary of Care Provided Minutes Spent on Discharge: 32 Hospital Course: Patient is a 67-year-old male with history of coronary artery disease with bypass history, hypertension, seizure disorder on Lamictal, essential tremor who presented to [facility] 11/01/2022 with recurrence of tonic-clonic seizure after stress at home. He was given midazolam and Ativan for the seizures and was somewhat tired and confused, loaded with Keppra and admitted. Patient improved and was awake and alert. Neurology consulted and recommended discharge on home medications with addition of Keppra 500 twice fabiana ly and following up with outpatient neurologist whom he is already established with. No further complaints at time of discharge and patient comfortable going home. Discharge instructions as follows: DISCHARGE INSTRUCTIONS PLEASE READ *Please take this with you to your next doctors appointment* -You were found to have a lung nodule in the left lung base, it is recommended that you discuss this with your primary care physician as you may need follow up imaging -Please follow-up with your neurologist upon discharge. Please call their office to schedule hospital follow-up appointment upon discharge. -You will be discharged on Keppra 500mg twice daily, please take this until you follow up with Dr. Sandhu. Or if any concerns prior to follow up please contact his office. SEIZURE DISCHARGE INSTRUCTIONS: - Seizures are unpredictable. Do not do anything that might cause danger to you or other people if you have another seizure. Do not drive, ride a bike, climb ladders/heights, hold a baby or operate dangerous equipment etc. - Do not drive until you are cleared to do so by your doctor -Avoid unsupervised activities that may pose danger of sudden loss of consciousness including bathing, swimming alone, working at heights, and/or operating heavy machinery. - Do not take a bath alone. Take shower instead - Do not spend time alone until your healthcare provider says that you are no longer in danger of having another seizure - Tell your close friends and relatives about your seizure. Teach them what to do for you if it happens again - Take your medicine as prescribed, missing doses increases your risk of having repeat seizure -Follow regular sleep schedule such that you get at least 60 hours of restful sleep every night. This is especially important when you are sick or have a cold, flu, or another type of infection - Do not drink alcoholic beverages until your doctor says it is okay. Do not ever use recreational drugs -For future seizures if you are alone: If you feel a seizure coming on, lie down on a bed or the floor or with something soft under your head and lie on your left side, not in your back. Also make sure you are not near any objects that may injure you during seizure. Call 911 if you can. - For future seizures if someone is with you: Depression should help you get into a safe position and then they should call 911. They should not try to force anything into your mouth once the seizure begins. They should not put their fingers in your mouth. -After seizure you may be drowsy or confused. That person should stay with you until you are fully awake. That person should not offer you anything to eat or drink during that time. Call 911 or go to the emergency department. -Call your healthcare provider right away if you have any of these: Another seizure, a fever of 100.4 ?F or higher, abnormal irritability, drowsiness, or confusion, head or neck pain that gets worse -Please call your primary care provider's office upon discharge to schedule a hospital follow up within 1 week. -For any concerning signs or symptoms please call 911 or proceed to the nearest emergency department Physical Exam Narrative General: Alert, oriented, no apparent distress HEENT: Atraumatic, normocephalic Eyes: Anicteric, normal conjunctiva, extraocular movements grossly intact Neck: Supple Respiratory: Clear to auscultation bilaterally, normal respiratory effort Cardiovascular: Regular rate and rhythm GI: Soft, nontender, nondistended Extremities: No edema Musculoskeletal: Moving all extremities Neuro: No overt focal neurological deficits Skin: No rashes appreciated Psych: Cooperative Weight / BMI Weight Weight: 60.1 kg Body Mass Index (BMI) 22.1 ABG / Lab / Microbiology Data 11/01/22 21:30 11/02/22 05:50 Laboratory: Laboratory Results - last 24 hr 11/01/22 21:30: WBC 11.9 H, RBC 4.09 L, Hgb 13.7, Hct 42.6, MCV 104.2 H, MCH 33.5 H, MCHC 32.2, RDW Std Deviation 49.4 H, RDW Coeff of Verito 12.8, Plt Count 234, MPV 9.9, Immature Gran % (Auto) 0.200, Neut % (Auto) 46.8 L, Lymph % (Auto) 40.6, [place] % (Auto) 5.3, Eos % (Auto) 6.5 H, Baso % (Auto) 0.6, Absolute Neuts (auto) 5.6, Absolute Lymphs (auto) 4.85 H, Nucleated RBC % 0, Atypical Lymphocytes 2+, Platelet Estimate ADEQUATE, RBC Morphology N CHROM, Anisocytosis 1+, Macrocytosis 1+, Ovalocytes RARE, Sodium 135 L, Potassium 4.5, Chloride 105, Carbon Dioxide 25.0, Anion Gap 5, BUN 15, Creatinine 1.00, Estim Creat Clear Calc 67.90, Est GFR (MDRD) Af Amer 96, Est GFR (MDRD) Non-Af 79, BUN/Creatinine Ratio 15.0, Glucose 77, Calcium 8.4 L, Total Bilirubin 0.50, AST 29, ALT 27, Alkaline Phosphatase 79, Troponin I High Sens 7, Total Protein 6.6, Albumin 3.3, Globulin 3.3, Albumin/Globulin Ratio 1.0, Lipase 14 11/01/22 22:20: Lactic Acid 1.1 11/02/22 05:50: Sodium 139, Potassium 4.2, Chloride 110 H, Carbon Dioxide 29.0, Anion Gap 0 L, BUN 12, Creatinine 0.92, Estim Creat Clear Calc 65.33, Est GFR (MDRD) Af Amer 105, Est GFR (MDRD) Non-Af 87, BUN/Creatinine Ratio 13.0, Glucose 95, Calcium 8.2 L 11/02/22 08:30: Urine Color Yellow, Urine Clarity Clear, Urine pH 8.0, Ur Specific Finger 1.010, Urine Protein Negative, Urine Glucose (UA) Normal, Urine Ketones Negative, Urine Occult Blood 10 H, Urine Nitrite Negative, Urine Bilirubin Negative, Urine Urobilinogen Normal, Ur Leukocyte Esterase Negative, Urine RBC 0 SEEN, Urine WBC 0 SEEN, Ur Squamous Epith Cells 0 SEEN, Urine Bacteria 0 SEEN, Urine Mucus 0 SEEN, Urine Opiates Screen NEGATIVE, Urine Methadone Screen NEGATIVE, Ur Barbiturates Screen POSITIVE H, Ur Phencyclidine Scrn NEGATIVE, Ur Amphetamines Screen NEGATIVE, MDMA (Ecstasy) Screen NEGATIVE, U Benzodiazepines Scrn POSITIVE H, Urine Cocaine Screen NEGATIVE, U Cannabinoids Screen NEGATIVE, Ur Drug Screen Comment Radiography Diagnostic Testing: Radiology Impression Brain CT 11/01/22 21:43 IMPRESSION: 1. Stable exam. 2. Encephalomalacic change and chronic gliosis in the RIGHT hemisphere localized within the RIGHT inferior parietal lobule, RIGHT temporal lobe and RIGHT occipital lobe without change. 3. No intracranial mass, hemorrhage or acute territorial infarct. 4. Chronic ethmoid sinus disease. Electronically Signed: Juan R George MD at 22:40 EDT , Abdomen/Pelvis CT 11/01/22 21:44 IMPRESSION: 1. Stable exam. 2. 11 x 13 mm noncalcified pulmonary nodule at the LEFT lung base. Findings are stable. Consider follow-up based on included recommendations. 3. Stable borderline hepatomegaly. No intrahepatic masses or ductal dilatation. 4. No evidence cholelithiasis or biliary ductal dilatation. 5. No evidence of renal calcifications or obstructive uropathy. 6. No masses bowel obstruction abscess free fluid or free air. Moderate stool burden is noted. 7. Diffuse cachexia again noted. Reference recommendations for pulmonary nodule follow-up: Fleischner Report Guidelines 2017 Evelia et al, Radiology 2017: https://pubs.rsna.org/doi/pdf/10.1148/radiol.6842521979 Nodule size: <6 mm SOLITARY low-risk: no follow-up needed high-risk: optional CT at 12 months MULTIPLE low-risk: no follow-up needed high-risk: optional CT at 12 months -- Nodule size: 6-8 mm SOLITARY low-risk: follow-up at 6-12 months, then consider further follow-up at 18-24 months high-risk: initial follow-up CT at 6-12 months and then at 18-24 months if no change MULTIPLE low-risk: follow-up CT at 3-6 months, then consider further follow-up at 18-24 months high-risk: initial follow-up CT at 3-6 months and then at 18-24 months Nodule size: >8 mm SOLITARY either low or high-risk patients consider follow-up CT at 3 months, and/or CT-PET, and/or biopsy MULTIPLE low-risk: follow-up CT at 3-6 months, then consider further follow-up at 18-24 months high-risk: initial follow-up CT at 3-6 months and then at 18-24 months Electronically Signed: Juan R George MD at 23:13 EDT , D/C Instructions Discharge Diet: No restrictions Meaningful Use Info Meaningful Use Diagnoses (Choose all that apply): None applicable Discharge Plan Admission Admit Date/Time: 11/01/22 23:51 Primary Reason for Your Visit: Seizure Attending Provider: Elvi Layton Primary Care Provider: Yamilet Medina Consulting Providers: Zaki Vigil Instructions Patient Instructions: Epilepsy: Safety During a Seizure, Living Well with Epilepsy Additional Instructions / Restrictions: DISCHARGE INSTRUCTIONS PLEASE READ *Please take this with you to your next doctors appointment* -You were found to have a lung nodule in the left lung base, it is recommended that you discuss this with your primary care physician as you may need follow up imaging -Please follow-up with your neurologist upon discharge. Please call their office to schedule hospital follow-up appointment upon discharge. -You will be discharged on Keppra 500mg twice daily, please take this until you follow up with Dr. Sandhu. Or if any concerns prior to follow up please contact his office. SEIZURE DISCHARGE INSTRUCTIONS: - Seizures are unpredictable. Do not do anything that might cause danger to you or other people if you have another seizure. Do not drive, ride a bike, climb ladders/heights, hold a baby or operate dangerous equipment etc. - Do not drive until you are cleared to do so by your doctor -Avoid unsupervised activities that may pose danger of sudden loss of consciousness including bathing, swimming alone, working at heights, and/or operating heavy machinery. - Do not take a bath alone. Take shower instead - Do not spend time alone until your healthcare provider says that you are no longer in danger of having another seizure - Tell your close friends and relatives about your seizure. Teach them what to do for you if it happens again - Take your medicine as prescribed, missing doses increases your risk of having repeat seizure -Follow regular sleep schedule such that you get at least 60 hours of restful sleep every night. This is especially important when you are sick or have a cold, flu, or another type of infection - Do not drink alcoholic beverages until your doctor says it is okay. Do not ever use recreational drugs -For future seizures if you are alone: If you feel a seizure coming on, lie down on a bed or the floor or with something soft under your head and lie on your left side, not in your back. Also make sure you are not near any objects that may injure you during seizure. Call 911 if you can. - For future seizures if someone is with you: Depression should help you get into a safe position and then they should call 911. They should not try to force anything into your mouth once the seizure begins. They should not put their fingers in your mouth. -After seizure you may be drowsy or confused. That person should stay with you until you are fully awake. That person should not offer you anything to eat or drink during that time. Call 911 or go to the emergency department. -Call your healthcare provider right away if you have any of these: Another seizure, a fever of 100.4 ?F or higher, abnormal irritability, drowsiness, or confusion, head or neck pain that gets worse -Please call your primary care provider's office upon discharge to schedule a hospital follow up within 1 week. -For any concerning signs or symptoms please call 911 or proceed to the nearest emergency department Discharge Orders/Prescriptions Prescriptions: Continued primidone 50 mg tablet 100 mg PO TID Qty: 180 5RF lamotrigine 100 mg tablet 100 mg PO BID Qty: 60 5RF ondansetron 4 mg tablet,disintegrating 4 mg PO Q6H PRN (Reason: nausea and vomiting) Qty: 10 0RF acetaminophen 500 mg capsule 1,000 mg PO Q6H PRN (Reason: pain) Qty: 120 1RF Rx Instructions: 14 day #28 folic acid 1 mg tablet 1 mg PO DAILY Qty: 90 3RF magnesium oxide 400 mg (241.3 mg magnesium) tablet 400 mg PO DAILY Qty: 90 3RF thiamine HCl (vitamin B1) 100 mg tablet 100 mg PO TID Qty: 90 1RF ascorbate calcium (vitamin C) 500 mg tablet 500 mg PO DAILY Qty: 90 1RF aspirin [Adult Aspirin Regimen] 81 mg tablet,delayed release (DR/EC) 81 mg PO DAILY Qty: 90 3RF clopidogrel [Plavix] 75 mg tablet 75 mg PO DAILY Qty: 90 3RF ferrous sulfate [FeroSul] 325 mg (65 mg iron) tablet 325 mg PO DAILY Qty: 90 3RF multivitamin with folic acid [Daily-Tin (with folic acid)] 400 mcg tablet 1 tab PO DAILY Qty: 90 3RF amiodarone 200 mg tablet 100 mg PO DAILY Qty: 90 1RF Rx Instructions: take 200 mg daily for 5 days and 1/2 tablet there after atorvastatin 40 mg tablet 40 mg PO QHS Qty: 30 12RF Referrals / Follow Up: Yamilet Medina MD [Primary Care Provider] - Within 1 Week Johann Sandhu DO [Non-Staff] - Within 2 Weeks ( -Please follow-up with neurology upon discharge. Please call your neurologist office to schedule hospital follow-up appointment upon discharge.) Charges/Coding Visit Charges Inpatient E&M: 35490 Disch Hosp >30min
--- NOTE | 2022-11-02 14:31 | CASEMGMT ---
Patient has a Healthcare Power of Special Needs Nanny and a Healthcare Living Will on file at [facility]. Patient's daughter Octavia is patient's Healthcare Power of Special Needs Nanny. Helen LAIRD
[2022-11-02] MEDS: levETIRAcetam 500 MG Tablet PO (14:37)
[2022-11-02] MEDS: Primidone 50 MG Tablet 100 MG PO (14:40)
--- NOTE | 2022-11-02 14:46 | NURSING ---
Phone call to Kaykay that patient is ready for discharge.
--- NOTE | 2022-11-02 16:19 | CASEMGMT ---
Patient has order for discharge. RN CM in to discuss needs at discharge, family at bedside. Patient and family decline needs at discharge. Patient had no further questions at this time.
--- NOTE | 2022-11-02 16:53 | NURSING ---
discharge instructions provided to patient and family, IV and telemetry removed. Patient and family deny questions at this time.
== END 2022-11-02 16:29 | disposition home or self-care (01) ==
LOC: ED 23:42 → PCU 11-02 01:45
PROVIDERS: Admitting Provider Family Medicine; Emergency Provider Emergency Medicine; PCP Internal Medicine; Visit Provider Internal Medicine
DX: G40.909 Epilepsy, unspecified, not intractable, without status epilepticus (principal); F17.210 Nicotine dependence, cigarettes, uncomplicated; Z79.02 Long term (current) use of antithrombotics/antiplatelets; I25.10 Atherosclerotic heart disease of native coronary artery without angina pectoris; G93.40 Encephalopathy, unspecified; E78.5 Hyperlipidemia, unspecified; I10 Essential (primary) hypertension; Z63.79 Other stressful life events affecting family and household; R91.1 Solitary pulmonary nodule; Z79.82 Long term (current) use of aspirin; Z95.1 Presence of aortocoronary bypass graft; Z79.899 Other long term (current) drug therapy; G25.0 Essential tremor
CPT/HCPCS: 36415; 70450; 74176; 80048; 80053; 80307; 81001; 83605; 83690; 84484; 85025; 95819; 96365; 96375; 99221; 99285; J7030; A4216; G0378

== ENCOUNTER 2022-11-10 15:31 | Emergency (ER) | payer MEDICARE, MEDICAID, SELFPAY ==
[2022-11-10 15:33] VITALS: BP 118/78; PULSE 65; RESP 16; TEMP 36.4; O2SAT 97; BMI 20.7
--- NOTE | 2022-11-10 15:44 | CM.ED ---
Social Work SW performed chart review, patient has completed HCPOA and LW documents on file as of 2018. Patient's HCPOA is his daughter, Octavia and alternates are Maurice, step son, and Bolivar, son-in-law. Felicia Winkler [employer], SISI
--- NOTE | 2022-11-10 16:03 | CT_ITS ---
STUDY: CT BRAIN WITHOUT CONTRAST REASON FOR EXAM: Male, 67 years old. dizziness RADIATION DOSAGE (If Supplied By Facility): CTDIvol = ( 44.99 ) mGy, DLP = ( 779.24 ) mGycm TECHNIQUE: Transaxial CT imaging of the brain was performed without administration of intravenous contrast material. Individualized dose optimization techniques were used for this CT. COMPARISON: November 01, 2022. FINDINGS: Normal soft tissue structures. Normal calvarium. Mild calcific plaquing of the cavernous carotid and vertebral arteries Mild atrophy and periventricular white matter ischemic change.. 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 Normal brainstem. Normal cerebellum. There is no intracranial hemorrhage. There are no findings of an acute ischemic infarction. Mild soft tissue thickening within left external auditory canal more pronounced disease in the right external auditory canal with apparent thickening of the tympanic membrane Moderate mucosal thickening of the left maxillary sinus and bilateral ethmoid sinuses.. Minor mucosal thickening of the right maxillary sinus CT/Brain/Head without Contrast IMPRESSION: Mild atrophy and periventricular white matter ischemic changes. No acute bleed. If concern for acute infarct MRI recommended. Incidental finding of probable bilateral external otitis worse on the right of uncertain chronicity Bilateral maxillary and ethmoid sinus disease likely chronic Electronically Signed: Shashi Welch MD at 16:49 EDT ,
--- NOTE | 2022-11-10 16:04 | EKG12_ITS ---
Test Reason : SEIZURE Blood Pressure : / mmHG Vent. Rate : 071 BPM Atrial Rate : 071 BPM P-R Int : 146 ms QRS Dur : 100 ms QT Int : 410 ms P-R-T Axes : 000 -55 086 degrees QTc Int : 445 ms Normal sinus rhythm Left axis deviation Septal infarct (cited on or before 20-OCT-2022) Abnormal ECG Confirmed by KAMRYN WOODWARD, AUSTEN ([id number]), greeting card editor JAQUELIN DON ([id number]) on 11/15/2022 8:10:25 AM Referred By: Confirmed By:WALTER HARRY MD
--- NOTE | 2022-11-10 16:07 | EDS_ITS ---
HPI History of Present Illness Chief Complaint: Seizure Narrative Narrative: 67-year-old male with history of seizures, Parkinson's, dementia, CVA, CAD presenting with chest pain and dizziness. Family states that he was sitting in his chair at home when he started to feel shaky. He was with family and he was not unresponsive at any point. Later he stated he was having chest pain. Patient is a poor informant and is very shaky. Family states he is usually shaky. He is not usually this anxious. They state at baseline he would not be able to remember most things from day-to-day. He does feel like he is spinning. [facility] Medical History Abnormal electrocardiogram Atherosclerotic heart disease of [place] coronary artery without angina pectoris Atrial septal aneurysm Chronic back pain Complex laceration of scalp CVA (cerebral vascular accident) Fall from ladder Heart valve problem History of left heart catheterization (LHC) (~05/27/21) Hyperlipidemia Nicotine dependence Postoperative atrial fibrillation Scalp pain Scalp wound Seizure Syncope and collapse Home Medications acetaminophen 500 mg capsule 1,000 mg (2 x 500 mg) PO Q6H PRN pain #120 caps 02/24/22 [Rx Last Taken Unknown] folic acid 1 mg tablet 1 mg PO DAILY supplement #90 tabs 03/30/22 [Rx Last Taken Unknown] magnesium oxide 400 mg (241.3 mg magnesium) tablet 400 mg PO DAILY supplement #90 tabs 03/30/22 [Rx Last Taken Unknown] ondansetron 4 mg disintegrating tablet 4 mg PO Q6H PRN nausea and vomiting #10 tabs 04/10/22 [Rx Last Taken Unknown] ascorbate calcium (vitamin C) 500 mg tablet 500 mg PO DAILY vitamin #90 tabs 06/16/22 [Rx Last Taken Unknown] aspirin 81 mg tablet,delayed release (Adult Aspirin Regimen) 81 mg PO DAILY heart health #90 tabs 06/16/22 [Rx Last Taken Unknown] clopidogrel 75 mg tablet (Plavix) 75 mg PO DAILY anti platelet #90 tabs 06/16/22 [Rx Last Taken Unknown] ferrous sulfate 325 mg (65 mg iron) tablet (FeroSul) 325 mg PO DAILY supplement #90 tabs 06/16/22 [Rx Last Taken Unknown] multivitamin with folic acid 400 mcg tablet (Daily-Tin (with folic acid)) 1 tab PO DAILY vitamin #90 tabs 06/16/22 [Rx Last Taken Unknown] thiamine HCl (vitamin B1) 100 mg tablet 100 mg PO TID supplement #90 tabs 06/16/22 [Rx Last Taken Unknown] amiodarone 200 mg tablet 100 mg (1/2 x 200 mg) PO DAILY heart #90 tabs 06/18/22 [Rx Last Taken Unknown] atorvastatin 40 mg tablet 40 mg PO QHS cholesterol #30 tabs 08/10/22 [Rx Last Taken Unknown] lamotrigine 100 mg tablet 100 mg PO BID seizures #60 tabs 09/09/22 [Rx Last Taken Unknown] primidone 50 mg tablet 100 mg (2 x 50 mg) PO TID tremor #180 tabs 09/09/22 [Rx Last Taken Unknown] levetiracetam 500 mg tablet 500 mg PO BID 30 days #60 tabs 11/02/22 [Rx Last Taken Unknown] lorazepam 0.5 mg tablet (Ativan) 0.5 mg PO Q8H PRN anxiety 3 days #12 tabs 11/10/22 [Rx Last Taken Unknown] Allergy/AdvReac Type Severity Reaction Status Date / Time bee venom protein (honey bee) Allergy Severe Anaphylaxis Verified 09/09/22 20:14 tuberculin, purified protein Allergy Severe Swelling Verified 09/09/22 20:14 deriva Family History Mother Myocardial infarction Brother Myocardial infarction Surgical History finger surgery History of coronary artery bypass surgery (~09/21/21) History of lumbar puncture (~04/2017) lymph node resection S/P triple vessel bypass Stented coronary artery (10/06/17) Social History household members: family Smoking Status: Current every day smoker tobacco type: cigarettes Tobacco: How many years used: 61 Electronic Cigarette Use: not used second hand exposure: Yes alcohol intake: current alcohol intake frequency: a few times a month Alcohol type: hard liquor details: Patient reduced his alcohol intake when 'his lady passed in 2014' substance use type: does not use caffeine: Yes Type: carbonated beverages and coffee ROS ROS ED ROS Narrative Dizziness Constitutional Constitutional ED: Denies chills, fever(s) or sweats Eyes Eyes: Denies blurry vision or change in vision ENT ENT ED: Denies ear pain or sore throat Cardiovascular Cardiovascular: Reports chest pain; Denies palpitations or racing heartbeat Respiratory/Chest Respiratory/Chest: Denies cough, dyspnea or sputum Gastrointestinal Gastrointestinal: Denies abdominal pain, constipation, diarrhea, nausea or vomiting Genitourinary Genitourinary ED: Denies dysuria, hematuria or urinary frequency Musculoskeletal Musculoskeletal: Denies arthralgias, myalgias or neck pain Integumentary Denies abscess, Abrasions or rash Neurologic Neurologic: Denies headache(s), paresthesias or weakness Psychiatric Psychiatric: Denies anxiety, depression, suicidal ideation or suicidal thoughts Endocrine Endocrinology: Denies polydipsia or polyuria EXAM Physical Exam Const Vital Signs: 11/10/22 15:33 11/10/22 17:10 11/10/22 18:49 Temperature 97.6 F L Temperature Source Temporal Pulse Rate 65 69 69 Respiratory Rate 16 16 17 Blood Pressure 118/78 99/74 103/72 Blood Pressure Mean 91 82 82 Pulse Ox 97 96 94 Oxygen Delivery Method Room Air Room Air Room Air Positive well nourished General Appearance ED: NAD; Negative for pallor HEENT Reports moist mucous membranes Negative for trauma Chest Wall inspection of chest normal Resp normal respiratory effort and clear to auscultation bilaterally Effort and Inspection: Negative for retractions Cardio regular rate and regular rhythm GI normal to inspection, nondistended, normoactive bowel sounds Neuro CN's II-XII intact bilaterally Neuro Narrative: Tremor Skin no rashes or lesions noted General Skin Exam: Negative for jaundice or pallor MDM MDM MDM Narrative Medical decision making narrative: Patient with dizziness. I cannot test his vision because he does not have his glasses on. His family states baseline he would not be able to see very well. He states everything is fuzzy. He also stating he has chest pain. I do not believe he had a seizure because and awake this whole time. Differential includes acute coronary syndrome, CHF, pneumonia, pneumothorax, stroke, intracranial hemorrhage, anxiety, electrolyte abnormalities, dehydration, UTI, dementia. Will obtain a CBC to assess white blood cell count, hemoglobin, platelets. CMP to assess liver function, renal function, electrolytes. High- sensitivity troponin and EKG to assess for ischemia. Patient PERC negative. Chest x-ray to rule out pneumonia. CT brain to assess for acute intracranial findings. Patient's family requests Ativan given 0.5 mg IV. Will obtain urinalysis to rule out UTI. CBC shows mild leukocytosis at 12.0. Otherwise hemoglobin [place] are normal. Platelets are within normal limits. Liver enzyme within normal limits. High-sensitivity troponin is 5. Delta troponin also 5. Urinalysis negative for infection. CT brain shows nothing intracranial. It does show concern for possible otitis externa bilaterally. I reexamined the patient and looked in his ears and he does some cerumen and he has no pain with examination or with movement of the tragus I do not think he has otitis externa. Patient is doing much better after 0.5 mg of Ativan. I spoke with the on-call physician for Dr. Gonzáles. Recommended that we give him some Ativan for when he has anxiety like this. At this point feel the patient can be discharged in the care of his family. Impression: 1. History of dementia 2. Anxiety 3. Chest pain Lab Data Labs: Laboratory Results - last 24 hr 11/10/22 11/10/22 11/10/22 16:25 17:45 18:40 WBC 12.0 H RBC 4.08 L Hgb 13.7 Hct 41.0 MCV 100.5 H MCH 33.6 H MCHC 33.4 RDW Std Deviation 46.7 H RDW Coeff of Verito 12.6 Plt Count 290 MPV 10.1 Immature Gran % (Auto) 0.300 Neut % (Auto) 34.2 L Lymph % (Auto) 45.3 H [place] % (Auto) 11.4 H Eos % (Auto) 8.2 H Baso % (Auto) 0.6 Absolute Neuts (auto) 4.1 Absolute Lymphs (auto) 5.43 H Nucleated RBC % 0 Differential Comment SCANNED Sodium 140 Potassium 4.1 Chloride 106 Carbon Dioxide 27.0 Anion Gap 7 BUN 25 H Creatinine 1.23 Estim Creat Clear Calc 50.41 Est GFR (MDRD) Af Amer 75 Est GFR (MDRD) Non-Af 62 BUN/Creatinine Ratio 20.3 H Glucose 88 Calcium 8.5 Total Bilirubin 0.30 AST 20 ALT 28 Alkaline Phosphatase 88 Troponin I High Sens 5 5 B-Natriuretic Peptide 27.9 Total Protein 6.7 Albumin 3.2 Globulin 3.5 Albumin/Globulin Ratio 0.9 Urine Color Yellow Urine Clarity Clear Urine pH 5.0 Ur Specific [place] 1.020 Urine Protein Negative Urine Glucose (UA) Normal Urine Ketones 5 H Urine Occult Blood Negative Urine Nitrite Negative Urine Bilirubin Negative Urine Urobilinogen Normal Ur Leukocyte Esterase 25 H Urine RBC 0 SEEN Urine WBC 0-5 SEEN Ur Squamous Epith Cells 0-5 SEEN Urine Bacteria 0 SEEN Urine Mucus 0 SEEN Radiography Diagnostic Testing: Clinical Impression(s) from Imaging Studies Brain CT 11/10/22 16:03 IMPRESSION: Mild atrophy and periventricular white matter ischemic changes. No acute bleed. If concern for acute infarct MRI recommended. Incidental finding of probable bilateral external otitis worse on the right of uncertain chronicity Bilateral maxillary and ethmoid sinus disease likely chronic Electronically Signed: Shashi Welch MD at 16:49 EDT Reading Location ID and State: [facility] [place] , [facility] , Chest X-Ray 11/10/22 16:32 IMPRESSION: No acute cardiopulmonary pathology. Electronically Signed: Shashi Welch MD at 17:01 EDT , Discharge Plan Triage Chief Complaint: Seizure ED Provider: Thai Nice Dx/Rx/DC Orders Instructions: ED Chest Pain, Noncardiac, ED Panic Attack Prescriptions: New lorazepam [Ativan] 0.5 mg tablet 0.5 mg PO Q8H PRN (Reason: anxiety) 3 Days Qty: 12 0RF No Action primidone 50 mg tablet 100 mg PO TID Qty: 180 5RF lamotrigine 100 mg tablet 100 mg PO BID Qty: 60 5RF ondansetron 4 mg tablet,disintegrating 4 mg PO Q6H PRN (Reason: nausea and vomiting) Qty: 10 0RF levetiracetam 500 mg Tablet 500 mg PO BID 30 Days Qty: 60 0RF acetaminophen 500 mg capsule 1,000 mg PO Q6H PRN (Reason: pain) Qty: 120 1RF Rx Instructions: 14 day #28 folic acid 1 mg tablet 1 mg PO DAILY Qty: 90 3RF magnesium oxide 400 mg (241.3 mg magnesium) tablet 400 mg PO DAILY Qty: 90 3RF thiamine HCl (vitamin B1) 100 mg tablet 100 mg PO TID Qty: 90 1RF ascorbate calcium (vitamin C) 500 mg tablet 500 mg PO DAILY Qty: 90 1RF aspirin [Adult Aspirin Regimen] 81 mg tablet,delayed release (DR/EC) 81 mg PO DAILY Qty: 90 3RF clopidogrel [Plavix] 75 mg tablet 75 mg PO DAILY Qty: 90 3RF ferrous sulfate [FeroSul] 325 mg (65 mg iron) tablet 325 mg PO DAILY Qty: 90 3RF multivitamin with folic acid [Daily-Tin (with folic acid)] 400 mcg tablet 1 tab PO DAILY Qty: 90 3RF amiodarone 200 mg tablet 100 mg PO DAILY Qty: 90 1RF Rx Instructions: take 200 mg daily for 5 days and 1/2 tablet there after atorvastatin 40 mg tablet 40 mg PO QHS Qty: 30 12RF Primary Care Provider: Yamilet Medina Referrals: Yamilet Medina MD [Primary Care Provider] - Disposition Disposition: Home, Self Care Discharge Date/Time: 11/10/22 20:52
[2022-11-10] MEDS: LORazepam 2 MG/ML Syringe 0.5 MG IV (16:10)
--- NOTE | 2022-11-10 16:32 | RAD_ITS ---
STUDY: X-RAY CHEST REASON FOR EXAM: Male, 67 years old. weakness TECHNIQUE: AP portable COMPARISON: April 10, 2022 FINDINGS: The lungs are clear and expanded. Tiny calcified granuloma in right upper lobe There is no demonstrated pleural abnormality. Postop change status post median sternotomy and CABG Normal size heart. Normal mediastinum and mariluz. Normal visualized pulmonary arteries. Normal visualized aortic arch and descending thoracic aorta. Normal visualized thoracic spine. Normal visualized ribs, clavicles, and shoulders. There is no demonstrated abnormality of the visualized soft tissue structures of the upper abdomen. RAD/Chest 1 View (Portable) IMPRESSION: No acute cardiopulmonary pathology. Electronically Signed: Shashi Welch MD at 17:01 EDT ,
[2022-11-10 16:39] LABS: Absolute Lymphocyte Count 5.43 X10^3/uL (0.83-4.51); Absolute Neutrophil Count 4.1 X10^3/uL (2.0-7.7); Basophil# 0.07 X10^3/uL; Basophil% 0.6 % (0-1); Eosinophil# 0.98 X10^3/uL; Eosinophils% 8.2 % (0-5); Hemoglobin 13.7 g/dL (13.0-16.5); Lymphocyte # 5.43 X10^3/ul (0.83-4.51); Lymphocyte % 45.3 % (19-41); Mean Corp Hgb Conc 33.4 g/dL (32-36); Mean Corpuscular Hgb 33.6 pg (27.0-32.0); Mean Corpuscular Volume 100.5 fL (80-94); Mean Platelet Vol. 10.1 fl (6.2-12.0); Monocyte# 1.37 X10^3/uL; Monocyte% 11.4 % (0-10); NRBC Flagged by Analyzer 0 % (0-5); Neutrophil # 4.09 X10^3/uL (2.7-7.7); Neutrophil % 34.2 % (47-70); POSITIVE DIFFERENTIAL YES; POSITIVE MORPHOLOGY YES; Platelet Count 290 K/mm3 (150-450); RBC Distribution Width CV 12.6 % (11.6-14.6); RBC Distribution Width SD 46.7 fl (35.1-43.9); Red Blood Count 4.08 M/mm3 (4.6-6.2)
[2022-11-10 16:43] LABS: Differential Indicated SCAN CRITERIA MET
[2022-11-10 16:54] LABS: BNP,B-Type NATRIURETIC PEPTIDE 27.9 pg/mL (0-100)
[2022-11-10 16:58] LABS: ALB/GLOB Ratio 0.9 RATIO (0.9-2.4); AST(SGOT) 20 U/L (15-37); Alanine Aminotransfer ALT/SGPT 28 U/L (16-61); Albumin, Serum 3.2 g/dL (3.2-5.0); Alkaline Phosphatase 88 U/L (45-117); Anion Gap 7 (5-15); BUN 25 mg/dL (7-18); BUN/Creat Ratio 20.3 RATIO (10-20); Calcium,Total 8.5 mg/dL (8.5-10.1); Chloride 106 mmol/L (98-107); Creatinine, Serum 1.23 mg/dL (0.70-1.30); EST Glomerular Filtration Rate 62 mL/min (>60); Est Glom Filt Rate - Afr Amer 75 mL/min (>60); Estimated Creatinine Clearance 50.41 ml/min; Globulin 3.5 g/dL (2.2-4.2); Glucose 88 mg/dL (74-106); Potassium 4.1 mmol/L (3.5-5.1); Protein, Total 6.7 g/dL (6.4-8.2); Sodium Level 140 mmol/L (136-145); Troponin-I HS (w/2H Reflex) 5 pg/mL (3.0-78.0)
[2022-11-10 17:10] VITALS: BP 99/74; PULSE 69; RESP 16; O2SAT 96
[2022-11-10 17:21] LABS: Differential Comment SCANNED
[2022-11-10 17:53] LABS: Bacteria 0 SEEN /hpf (None Seen); Mucous, Urine 0 SEEN /hpf (<or=2+); Red Blood Cells-Urine 0 SEEN /hpf (0-5)
[2022-11-10 18:04] LABS: Color, Urine Yellow (Yellow); Glucose, Dipstick Normal (Normal); Ketone-Dipstick 5 mg/dl (Negative); Leukocyte Esterase-Dipstick 25 /ul (Negative); Nitrite-Dipstick Negative (Negative); Occult Blood-Urine Negative /ul (Negative); Protein-Dipstick Negative (Negative); Urine Bilirubin Dipstick Negative (Negative); Urine Clarity Clear (Clear); Urine Urobilinogen Normal (Normal)
[2022-11-10 18:16] LABS: Squamous Epithelial Cells - UA 0-5 SEEN /hpf (0-5); White Blood Cells 0-5 SEEN /hpf (0-5)
[2022-11-10 18:31] LABS: Reflex Troponin-HS? (from REC) Y
[2022-11-10 18:49] VITALS: BP 103/72; PULSE 69; RESP 17; O2SAT 94
[2022-11-10 19:12] LABS: Troponin-I HS 5 pg/mL (3.0-78.0)
== END 2022-11-10 20:52 | disposition home or self-care (01) ==
PROVIDERS: Emergency Provider Student in an Organized Health Care Education/Training Program; PCP Internal Medicine; Visit Provider Student in an Organized Health Care Education/Training Program
DX: G20 Parkinson's disease (principal); F02.80 Dementia in other diseases classified elsewhere, unspecified severity, without behavioral disturbance, psychotic disturbance, mood disturbance, and anxiety; E78.5 Hyperlipidemia, unspecified; I25.10 Atherosclerotic heart disease of native coronary artery without angina pectoris; F41.9 Anxiety disorder, unspecified; R07.9 Chest pain, unspecified; F17.210 Nicotine dependence, cigarettes, uncomplicated; Z95.1 Presence of aortocoronary bypass graft; Z95.5 Presence of coronary angioplasty implant and graft; Z79.02 Long term (current) use of antithrombotics/antiplatelets; Z79.82 Long term (current) use of aspirin; Z79.899 Other long term (current) drug therapy; Z86.73 Personal history of transient ischemic attack (TIA), and cerebral infarction without residual deficits
CPT/HCPCS: 70450; 71045; 80053; 81001; 83880; 84484; 85025; 93005; 99285; A4216

== ENCOUNTER 2022-12-09 20:09 | Emergency (ER) | payer MEDICARE, MEDICAID, SELFPAY ==
[2022-12-09 20:09] VITALS: PULSE 90
[2022-12-09 20:10] VITALS: BP 136/76; PULSE 75; RESP 16; TEMP 36.9; O2SAT 98; BMI 22.4
[2022-12-09 20:26] LABS: Absolute Lymphocyte Count 5.24 X10^3/uL (0.83-4.51); Absolute Neutrophil Count 5.9 X10^3/uL (2.0-7.7); Basophil# 0.07 X10^3/uL; Basophil% 0.5 % (0-1); Eosinophil# 0.69 X10^3/uL; Eosinophils% 5.3 % (0-5); Hematocrit 40.4 % (40-54); Hemoglobin 13.7 g/dL (13.0-16.5); Lymphocyte # 5.24 X10^3/ul (0.83-4.51); Lymphocyte % 40.6 % (19-41); Mean Corp Hgb Conc 33.9 g/dL (32-36); Mean Corpuscular Hgb 34.1 pg (27.0-32.0); Mean Corpuscular Volume 100.5 fL (80-94); Mean Platelet Vol. 9.8 fl (6.2-12.0); Monocyte# 1.01 X10^3/uL; Monocyte% 7.8 % (0-10); NRBC Flagged by Analyzer 0 % (0-5); Neutrophil # 5.86 X10^3/uL (2.7-7.7); Neutrophil % 45.6 % (47-70); POSITIVE DIFFERENTIAL YES; POSITIVE MORPHOLOGY YES; Platelet Count 240 K/mm3 (150-450); RBC Distribution Width CV 12.4 % (11.6-14.6); RBC Distribution Width SD 45.9 fl (35.1-43.9); Red Blood Count 4.02 M/mm3 (4.6-6.2); White Blood Count 12.9 K/mm3 (4.4-11.0)
[2022-12-09 20:27] LABS: Differential Indicated SCAN CRITERIA MET
[2022-12-09 20:41] LABS: Alcohol, Blood (Medical)-Serum < 3.0 mg/dL
[2022-12-09 20:43] LABS: Bacteria 0 SEEN /hpf (None Seen); Mucous, Urine 0 SEEN /hpf (<or=2+); Squamous Epithelial Cells - UA 0 SEEN /hpf (0-5); White Blood Cells 0 SEEN /hpf (0-5)
[2022-12-09 20:44] LABS: Differential Comment SCANNED; Reactive Lymphocyte 1+
[2022-12-09 20:47] LABS: ALB/GLOB Ratio 1.2 RATIO (0.9-2.4); AST(SGOT) 21 U/L (15-37); Alanine Aminotransfer ALT/SGPT 44 U/L (16-61); Albumin, Serum 3.7 g/dL (3.2-5.0); Alkaline Phosphatase 93 U/L (45-117); Anion Gap 3 (5-15); BUN 14 mg/dL (7-18); BUN/Creat Ratio 13.3 RATIO (10-20); Calcium,Total 8.6 mg/dL (8.5-10.1); Chloride 103 mmol/L (98-107); Creatinine, Serum 1.05 mg/dL (0.70-1.30); EST Glomerular Filtration Rate 75 mL/min (>60); Est Glom Filt Rate - Afr Amer 90 mL/min (>60); Estimated Creatinine Clearance 63.71 ml/min; Globulin 3.2 g/dL (2.2-4.2); Glucose 89 mg/dL (74-106); Potassium 4.2 mmol/L (3.5-5.1); Protein, Total 6.9 g/dL (6.4-8.2); Sodium Level 136 mmol/L (136-145)
[2022-12-09 21:01] LABS: Color, Urine Yellow (Yellow); Glucose, Dipstick Normal (Normal); Ketone-Dipstick Negative (Negative); Leukocyte Esterase-Dipstick Negative /ul (Negative); Nitrite-Dipstick Negative (Negative); Occult Blood-Urine 150 /ul (Negative); Protein-Dipstick Negative (Negative); Specific Gravity, Urine 1.015 (1.002-1.030); Urine Bilirubin Dipstick Negative (Negative); Urine Clarity Clear (Clear); Urine Urobilinogen Normal (Normal)
[2022-12-09 21:07] LABS: Red Blood Cells-Urine 0-5 SEEN /hpf (0-5)
[2022-12-09 21:09] VITALS: BP 137/89; PULSE 60; RESP 17; O2SAT 95
[2022-12-09 21:16] LABS: Amphetamine Urine VISTA NEGATIVE (<1000 ng/mL); Barbiturate Urine VISTA POSITIVE (< 200 ng/mL); Benzodiazepine Urine VISTA NEGATIVE (< 200 ng/mL); Cocaine Urine VISTA NEGATIVE (< 300 ng/mL); Ecstacy Urine VISTA NEGATIVE (< 500 ng/mL); Methadone Urine VISTA NEGATIVE (< 300 ng/mL); PCP Urine VISTA NEGATIVE (< 25 ng/mL); THC Urine VISTA NEGATIVE (< 50 ng/mL); Vista UDS pH Range 6
[2022-12-09] MEDS: Acetaminophen 500 MG Tablet PO (21:47)
--- NOTE | 2022-12-09 23:13 | EX.ED.DYSGE1 ---
HPI History of Present Illness Chief Complaint: Alt LOC Detail of Chief Complaint: Altered mental status, staring and abnormal movement upper extremities only Informant: spouse/S.O. Onset/Context/Timing Onset: Today Context: Sudden Onset Timing: Continuous Quality: Unresponsiveness Location: Presents from home Current Severity: On able to determine Maximum Severity: Unable to determine Worsened by: Unknown Relieved by: Nothing Associated Symptoms Associated Symptoms: Unable to determine Narrative Narrative: Is a 67-year-old male with history of generalized Seizures as well as partial complex focal seizures who is poorly his seizures. He was brought in because of altered mental status. He is unable to contribute to history and essentially nothing with physical exam as well. Person is with him states she puts out his meds and there is no concern for overmedication. Prior similar symptoms: Yes (Per person with him) Recent Illness/Hospitalization: Yes (He was last seen in the emergency room on November 10.) [facility] Medical History Abnormal electrocardiogram Atherosclerotic heart disease of [place] coronary artery without angina pectoris Atrial septal aneurysm Chronic back pain Complex laceration of scalp CVA (cerebral vascular accident) Fall from ladder Heart valve problem History of left heart catheterization (LHC) (~05/27/21) Hyperlipidemia Nicotine dependence Postoperative atrial fibrillation Scalp pain Scalp wound Seizure Syncope and collapse Home Medications acetaminophen 500 mg capsule 1,000 mg (2 x 500 mg) PO Q6H PRN pain #120 caps 02/24/22 [Rx Last Taken Unknown] folic acid 1 mg tablet 1 mg PO DAILY supplement #90 tabs 03/30/22 [Rx Last Taken Unknown] magnesium oxide 400 mg (241.3 mg magnesium) tablet 400 mg PO DAILY supplement #90 tabs 03/30/22 [Rx Last Taken Unknown] ondansetron 4 mg disintegrating tablet 4 mg PO Q6H PRN nausea and vomiting #10 tabs 04/10/22 [Rx Last Taken Unknown] ascorbate calcium (vitamin C) 500 mg tablet 500 mg PO DAILY vitamin #90 tabs 06/16/22 [Rx Last Taken Unknown] aspirin 81 mg tablet,delayed release (Adult Aspirin Regimen) 81 mg PO DAILY heart health #90 tabs 06/16/22 [Rx Last Taken Unknown] ferrous sulfate 325 mg (65 mg iron) tablet (FeroSul) 325 mg PO DAILY supplement #90 tabs 06/16/22 [Rx Last Taken Unknown] multivitamin with folic acid 400 mcg tablet (Daily-Tin (with folic acid)) 1 tab PO DAILY vitamin #90 tabs 06/16/22 [Rx Last Taken Unknown] thiamine HCl (vitamin B1) 100 mg tablet 100 mg PO TID supplement #90 tabs 06/16/22 [Rx Last Taken Unknown] atorvastatin 40 mg tablet 40 mg PO QHS cholesterol #30 tabs 08/10/22 [Rx Last Taken Unknown] lamotrigine 100 mg tablet 100 mg PO BID seizures #60 tabs 09/09/22 [Rx Last Taken Unknown] primidone 50 mg tablet 100 mg (2 x 50 mg) PO TID tremor #180 tabs 09/09/22 [Rx Last Taken Unknown] levetiracetam 500 mg tablet 500 mg PO BID 30 days #60 tabs 11/02/22 [Rx Last Taken Unknown] amiodarone 200 mg tablet 100 mg (1/2 x 200 mg) PO DAILY heart #90 tabs 11/18/22 [Rx Last Taken Unknown] clopidogrel 75 mg tablet (Plavix) 75 mg PO DAILY anti platelet #90 tabs 11/18/22 [Rx Last Taken Unknown] escitalopram oxalate 10 mg tablet (Lexapro) 10 mg PO DAILY #30 tabs 11/24/22 [Rx Last Taken Unknown] front wheeled walker #1 ea 11/26/22 [Rx Last Taken Unknown] Allergy/AdvReac Type Severity Reaction Status Date / Time bee venom protein (honey bee) Allergy Severe Anaphylaxis Verified 12/09/22 20:09 tuberculin, purified protein Allergy Severe Swelling Verified 12/09/22 20:09 deriva Family History Mother Myocardial infarction Brother Myocardial infarction Surgical History finger surgery History of coronary artery bypass surgery (~09/21/21) History of lumbar puncture (~04/2017) lymph node resection S/P triple vessel bypass Stented coronary artery (10/06/17) Social History household members: family Smoking Status: Current every day smoker tobacco type: cigarettes Tobacco: How many years used: 61 Electronic Cigarette Use: not used second hand exposure: Yes alcohol intake: current alcohol intake frequency: a few times a month Alcohol type: hard liquor details: Patient reduced his alcohol intake when 'his lady passed in 2014' substance use type: does not use caffeine: Yes Type: carbonated beverages and coffee ROS ROS ED Review of Systems ROS Unobtainable: due to mental status EXAM Physical Exam Const Vital Signs: 12/09/22 20:10 12/09/22 20:09 12/09/22 21:09 Temperature 98.4 F Temperature Source Temporal Pulse Rate 75 90 60 Respiratory Rate 16 17 Blood Pressure 136/76 H 137/89 H Blood Pressure Mean 96 105 Pulse Ox 98 95 Oxygen Delivery Method Room Air Room Air Positive well nourished and well developed Constitutional Narrative: Patient is staring straight up at the ceiling. His right upper extremity is held out in partial extension with tremorous activity. His left arm is raised above the bed with no abnormal motor activity. There is no abnormal motor activity of his lower extremities. General Appearance ED: well developed and NAD; Negative for cyanotic, diaphoretic or pallor HEENT Reports dry mucous membranes HEENT Narrative: There is temporal wasting. Eyes are sunken. Ears and TMs are normal. Nares patent. Mucosa slightly dry. Posterior pharynx unremarkable. Mouth ED: Yes dry mucous membranes Mouth: dry mucous membranes Eyes Eyes Narrative: Patient has a startle response to loud noise. Patient blinks with visual threat. Pupils are 2 to 3 mm in size. Pupils are reactive to light. Conjunctive is normal. General Eye ED: Negative for scleral icterus Neck no lymphadenopathy, supple and no JVD Neck Narrative: Trachea is midline there is no cervical lymphadenopathy. Chest Wall inspection of chest normal and palpation of chest normal Resp normal respiratory effort and clear to auscultation bilaterally Cardio regular rate, regular rhythm, S1 normal heart sound, S2 normal heart sound and no murmurs GI normal to inspection, nondistended, normoactive bowel sounds, non-tender, non-distended and no masses; Negative for hepatosplenomegaly Palpation: soft; Negative for mass Back/Spine Back/Spine Narrative: Inspection of the back appears normal. Extremity normal to inspection Extremity Narrative: There is no vascular Mise of upper or lower extremity. General Extremety ED: Negative for edema or tenderness General Extremity: Negative for edema Neuro No oriented x3 Sensorium / Orientation: Negative for alert Psych Psych Narrative: Unable to determine Skin no rashes or lesions noted and no wounds General Skin Exam: elasticity normal; Negative for jaundice or pallor MDM MDM MDM Narrative Medical decision making narrative: Patient was recently seen for seizure November. Neurology notes from September are read and there was mention of generalized and partial complex focal seizures. Most recent MRI was 2018. Most recent CAT scan was November 10. This reveals small vessel white matter disease. MRI that was performed 2017 revealed old right parietal infarct. This could be due to overmedication, infectious process, atypical seizure, conversion reaction. Work-up included blood work and urinalysis, tox screen and alcohol level. Since patient had a recent CAT scan with no Babinski or clonus doubt this to be due to an intracranial bleed and reason CT was not repeated. History & Record Review Discussion w/independent historian: Family Lab Data Attestation: I reviewed the patient's lab results. Lab results narrative: White count is slightly elevated with no shift. This is nonspecific. Basic metabolic panel is normal with a normal CO2 and anion gap. Liver enzymes. Urine is negative. Talk screen is positive for barbiturates which is due to the primidone. Alcohol level is less than 3, nondetected. Labs: Laboratory Results - last 24 hr 12/09/22 12/09/22 20:15 20:36 WBC 12.9 H RBC 4.02 L Hgb 13.7 Hct 40.4 MCV 100.5 H MCH 34.1 H MCHC 33.9 RDW Std Deviation 45.9 H RDW Coeff of [place] 12.4 Plt Count 240 MPV 9.8 Immature Gran % (Auto) 0.200 Neut % (Auto) 45.6 L Lymph % (Auto) 40.6 [place] % (Auto) 7.8 Eos % (Auto) 5.3 H Baso % (Auto) 0.5 Absolute Neuts (auto) 5.9 Absolute Lymphs (auto) 5.24 H Nucleated RBC % 0 Differential Comment SCANNED Reactive Lymphocytes 1+ Sodium 136 Potassium 4.2 Chloride 103 Carbon Dioxide 30.0 Anion Gap 3 L BUN 14 Creatinine 1.05 Estim Creat Clear Calc 63.71 Est GFR (MDRD) Af Amer 90 Est GFR (MDRD) Non-Af 75 BUN/Creatinine Ratio 13.3 Glucose 89 Calcium 8.6 Total Bilirubin 0.30 AST 21 ALT 44 Alkaline Phosphatase 93 Total Protein 6.9 Albumin 3.7 Globulin 3.2 Albumin/Globulin Ratio 1.2 Urine Color Yellow Urine Clarity Clear Urine pH 6.0 Ur Specific [place] 1.015 Urine Protein Negative Urine Glucose (UA) Normal Urine Ketones Negative Urine Occult Blood 150 H Urine Nitrite Negative Urine Bilirubin Negative Urine Urobilinogen Normal Ur Leukocyte Esterase Negative Urine RBC 0-5 SEEN Urine WBC 0 SEEN Ur Squamous Epith Cells 0 SEEN Urine Bacteria 0 SEEN Urine Mucus 0 SEEN Urine Opiates Screen NEGATIVE Urine Methadone Screen NEGATIVE Ur Barbiturates Screen POSITIVE H Ur Phencyclidine Scrn NEGATIVE Ur Amphetamines Screen NEGATIVE MDMA (Ecstasy) Screen NEGATIVE U Benzodiazepines Scrn NEGATIVE Urine Cocaine Screen NEGATIVE U Cannabinoids Screen NEGATIVE Ur Drug Screen Comment Ethyl Alcohol < 3.0 Treatment and Re-Evaluation :: When patient was reevaluated at 2305 he was alert oriented back to baseline. He has a exam is nonfocal. Discharge Plan Triage Chief Complaint: Alt LOC ED Provider: Álvaro Hsu Dx/Rx/DC Orders Clinical Impression: Acute alteration in mental status, Hyperlipidemia, Essential tremor, Abnormal PET of right lung, History of seizure, History of cerebellar stroke, History of coronary artery disease, Adjustment reaction with anxiety and depression Instructions: ED ALOC Prescriptions: No Action primidone 50 mg tablet 100 mg PO TID Qty: 180 5RF lamotrigine 100 mg tablet 100 mg PO BID Qty: 60 5RF ondansetron 4 mg tablet,disintegrating 4 mg PO Q6H PRN (Reason: nausea and vomiting) Qty: 10 0RF levetiracetam 500 mg Tablet 500 mg PO BID 30 Days Qty: 60 0RF acetaminophen 500 mg capsule 1,000 mg PO Q6H PRN (Reason: pain) Qty: 120 1RF Rx Instructions: 14 day #28 folic acid 1 mg tablet 1 mg PO DAILY Qty: 90 3RF magnesium oxide 400 mg (241.3 mg magnesium) tablet 400 mg PO DAILY Qty: 90 3RF thiamine HCl (vitamin B1) 100 mg tablet 100 mg PO TID Qty: 90 1RF ascorbate calcium (vitamin C) 500 mg tablet 500 mg PO DAILY Qty: 90 1RF aspirin [Adult Aspirin Regimen] 81 mg tablet,delayed release (DR/EC) 81 mg PO DAILY Qty: 90 3RF ferrous sulfate [FeroSul] 325 mg (65 mg iron) tablet 325 mg PO DAILY Qty: 90 3RF multivitamin with folic acid [Daily-Tin (with folic acid)] 400 mcg tablet 1 tab PO DAILY Qty: 90 3RF atorvastatin 40 mg tablet 40 mg PO QHS Qty: 30 12RF amiodarone 200 mg tablet 100 mg PO DAILY Qty: 90 1RF clopidogrel [Plavix] 75 mg tablet 75 mg PO DAILY Qty: 90 3RF escitalopram oxalate [Lexapro] 10 mg tablet 10 mg PO DAILY Qty: 30 2RF (DME) front wheeled walker See Rx Instructions .Route .MEDSUPPLY Qty: 1 0RF Rx Instructions: As directed Primary Care Provider: Yamilet Medina Referrals: Yamilet Medina MD [Primary Care Provider] - 5-7 Days Disposition Disposition: Home, Self Care
[2022-12-09 23:23] VITALS: BP 139/70; PULSE 62; RESP 16; O2SAT 98
== END 2022-12-09 23:33 | disposition home or self-care (01) ==
PROVIDERS: Emergency Provider Emergency Medicine; PCP Internal Medicine; Visit Provider Emergency Medicine
DX: R41.82 Altered mental status, unspecified (principal); R56.9 Unspecified convulsions; I25.10 Atherosclerotic heart disease of native coronary artery without angina pectoris; G25.0 Essential tremor; F17.210 Nicotine dependence, cigarettes, uncomplicated; E78.5 Hyperlipidemia, unspecified; Z86.73 Personal history of transient ischemic attack (TIA), and cerebral infarction without residual deficits; Z79.82 Long term (current) use of aspirin; Z79.899 Other long term (current) drug therapy; Z79.01 Long term (current) use of anticoagulants; Z95.5 Presence of coronary angioplasty implant and graft; R91.8 Other nonspecific abnormal finding of lung field; F43.23 Adjustment disorder with mixed anxiety and depressed mood
CPT/HCPCS: 80053; 80307; 81001; 82077; 85025; 99285; P9612; A4216

== ENCOUNTER 2022-12-24 11:02 | Day surgery (SDC) | payer MEDICARE, MEDICAID, SELFPAY ==
--- NOTE | 2022-12-21 10:28 | HP.PCM_ITS ---
[facility] - [facility] General Date of Service: 12/24/22 [facility] Narrative The patient is a 67-year-old male who initially presented to the outpatient pulmonary office on November 29, 2022 for the evaluation of a lung nodule. The patient was evaluated in the emergency department and underwent CT imaging of the chest, which demonstrated a 1.5 cm soft tissue nodular density in the left costophrenic angle. A follow-up PET scan was then completed on September 28, which demonstrated increased FDG concentration in the right paratracheal lymph node station with an SUV value of 9.5. The nodule noted in the left costophrenic angle was not PET avid. The patient has a known history of coronary artery disease status post CABG in September 2021. The patient also has a history of epilepsy, alcohol withdrawal seizures and chronic tobacco dependency. He has never previously been diagnosed with COPD or asthma. He does have an approximate [id number] smoking history. In addition to his personal smoking history, the patient did grow up in a smoking household. The patient has never previously completed pulmonary function studies. He does not utilize any inhalers or supplemental oxygen at his baseline. He is currently followed by Dr. Olivas of neurology due to his history of seizures. The patient was previously employed in the [employer], [employer]. The patient is currently on Plavix. [facility] Medical History Abnormal electrocardiogram Atherosclerotic heart disease of [place] coronary artery without angina pectoris Atrial septal aneurysm Chronic back pain Complex laceration of scalp CVA (cerebral vascular accident) Fall from ladder Heart valve problem History of left heart catheterization (LHC) (~05/27/21) Hyperlipidemia Nicotine dependence Postoperative atrial fibrillation Scalp pain Scalp wound Seizure Syncope and collapse Home Medications acetaminophen 500 mg capsule 1,000 mg (2 x 500 mg) PO Q6H PRN pain #120 caps 02/24/22 [Rx Last Taken Unknown] folic acid 1 mg tablet 1 mg PO DAILY supplement #90 tabs 03/30/22 [Rx Last Taken Unknown] magnesium oxide 400 mg (241.3 mg magnesium) tablet 400 mg PO DAILY supplement #90 tabs 03/30/22 [Rx Last Taken Unknown] ondansetron 4 mg disintegrating tablet 4 mg PO Q6H PRN nausea and vomiting #10 tabs 04/10/22 [Rx Last Taken Unknown] ascorbate calcium (vitamin C) 500 mg tablet 500 mg PO DAILY vitamin #90 tabs 06/16/22 [Rx Last Taken Unknown] aspirin 81 mg tablet,delayed release (Adult Aspirin Regimen) 81 mg PO DAILY heart health #90 tabs 06/16/22 [Rx Last Taken Unknown] ferrous sulfate 325 mg (65 mg iron) tablet (FeroSul) 325 mg PO DAILY supplement #90 tabs 06/16/22 [Rx Last Taken Unknown] multivitamin with folic acid 400 mcg tablet (Daily-Tin (with folic acid)) 1 tab PO DAILY vitamin #90 tabs 06/16/22 [Rx Last Taken Unknown] thiamine HCl (vitamin B1) 100 mg tablet 100 mg PO TID supplement #90 tabs 06/16/22 [Rx Last Taken Unknown] atorvastatin 40 mg tablet 40 mg PO QHS cholesterol #30 tabs 08/10/22 [Rx Last Taken Unknown] lamotrigine 100 mg tablet 100 mg PO BID seizures #60 tabs 09/09/22 [Rx Last Taken Unknown] primidone 50 mg tablet 100 mg (2 x 50 mg) PO TID tremor #180 tabs 09/09/22 [Rx Last Taken Unknown] levetiracetam 500 mg tablet 500 mg PO BID 30 days #60 tabs 11/02/22 [Rx Last Taken Unknown] amiodarone 200 mg tablet 100 mg (1/2 x 200 mg) PO DAILY heart #90 tabs 11/18/22 [Rx Last Taken Unknown] clopidogrel 75 mg tablet (Plavix) 75 mg PO DAILY anti platelet #90 tabs 11/18/22 [Rx Last Taken Unknown] front wheeled walker #1 ea 11/26/22 [Rx Last Taken Unknown] escitalopram oxalate 10 mg tablet (Lexapro) 10 mg PO DAILY #90 tabs 12/15/22 [Rx Last Taken Unknown] food supplemt, lactose-reduced (Ensure Original oral liquid) See Rx Instructions PO .COMPLEX Protein calorie malnutrition #60 BOTTLES 12/16/22 [Rx Last Taken Unknown] Allergy/AdvReac Type Severity Reaction Status Date / Time bee venom protein (honey bee) Allergy Severe Anaphylaxis Verified 12/09/22 20:09 tuberculin, purified protein Allergy Severe Swelling Verified 12/09/22 20:09 deriva Family History Mother Myocardial infarction Brother Myocardial infarction Surgical History finger surgery History of coronary artery bypass surgery (~09/21/21) History of lumbar puncture (~04/2017) lymph node resection S/P triple vessel bypass Stented coronary artery (10/06/17) Social History household members: family Smoking Status: Current every day smoker tobacco type: cigarettes Tobacco: How many years used: 61 Electronic Cigarette Use: not used second hand exposure: Yes alcohol intake: current alcohol intake frequency: a few times a month Alcohol type: hard liquor details: Patient reduced his alcohol intake when 'his lady passed in 2014' substance use type: does not use caffeine: Yes Type: carbonated beverages and coffee Physical Exam Const alert and no apparent distress General Appearance: cooperative HEENT normocephalic and head/scalp atraumatic Eyes PERRL and EOMs intact bilaterally Neck supple General: trachea midline Resp normal respiratory effort Auscultation: diminished lung sounds Cardio regular rate and regular rhythm GI normal to inspection, nondistended, normoactive bowel sounds Extremity no clubbing, cyanosis or edema Skin General Skin Exam: no breakdown Neuro CN's II-XII intact bilaterally and no focal motor deficits Psych cooperative and affect normal Assessment & Plan Assessment/Plan (1) Abnormal PET of right lung: PLAN: The patient was previously identified as having a lung nodule in the left costophrenic angle, which prompted a PET scan to be completed in September 2022. That imaging study demonstrated increased FDG uptake in the right distal paratracheal region. The patient has an extensive tobacco abuse history. These findings could certainly represent an underlying malignancy. The patient was previously scheduled in our office at the end of October, but did not show up to that appointment. I did recommend that we proceed with EBUS facilitated transbronchial needle aspiration at this particular time. Risks and benefits of the proposed procedure was discussed with the patient at length. He is in agreement to proceed.
[2022-12-22 15:35] LABS: Absolute Neutrophil Count 8.2 X10^3/uL (2.0-7.7); Basophil# 0.05 X10^3/uL; Basophil% 0.3 % (0-1); Eosinophil# 1.13 X10^3/uL; Eosinophils% 7.3 % (0-5); Hematocrit 41.3 % (40-54); Hemoglobin 13.5 g/dL (13.0-16.5); Lymphocyte % 30.6 % (19-41); Mean Corp Hgb Conc 32.7 g/dL (32-36); Mean Corpuscular Hgb 33.5 pg (27.0-32.0); Mean Corpuscular Volume 102.5 fL (80-94); Mean Platelet Vol. 10.3 fl (6.2-12.0); Monocyte# 1.28 X10^3/uL; Monocyte% 8.3 % (0-10); NRBC Flagged by Analyzer 0 % (0-5); Neutrophil # 8.15 X10^3/uL (2.7-7.7); POSITIVE MORPHOLOGY YES; Platelet Count 264 K/mm3 (150-450); RBC Distribution Width CV 12.9 % (11.6-14.6); RBC Distribution Width SD 48.2 fl (35.1-43.9); Red Blood Count 4.03 M/mm3 (4.6-6.2); White Blood Count 15.4 K/mm3 (4.4-11.0)
[2022-12-22 15:41] LABS: Differential Indicated SCAN CRITERIA MET
[2022-12-22 15:56] LABS: Partial Thromboplast Time 29.8 Seconds (24.1-36.2)
[2022-12-22 16:02] LABS: Vitamin D,25 Hydroxy 46.4 ng/mL
[2022-12-22 16:14] LABS: AST(SGOT) 21 U/L (15-37); Alanine Aminotransfer ALT/SGPT 40 U/L (16-61); Albumin, Serum 3.2 g/dL (3.2-5.0); Alkaline Phosphatase 92 U/L (45-117); Anion Gap 4 (5-15); BUN 14 mg/dL (7-18); BUN/Creat Ratio 16.2 RATIO (10-20); Calcium,Total 8.4 mg/dL (8.5-10.1); Chloride 106 mmol/L (98-107); Creatinine, Serum 0.86 mg/dL (0.70-1.30); EST Glomerular Filtration Rate 93 mL/min (>60); Est Glom Filt Rate - Afr Amer 113 mL/min (>60); Globulin 3.1 g/dL (2.2-4.2); Glucose 144 mg/dL (74-106); Magnesium 2.1 mg/dL (1.6-2.6); PSA,Total - Annual Screen 1.28 ng/mL (0.00-4.00); Potassium 3.9 mmol/L (3.5-5.1); Protein, Total 6.3 g/dL (6.4-8.2); Sodium Level 137 mmol/L (136-145); Thyroid Stim Hormone (TSH) 2.69 uIU/mL (0.358-3.74)
[2022-12-22 16:41] LABS: Cholesterol 110 mg/dL (200); High Density Lipoprotein 58 mg/dL; Triglycerides 156 mg/dL; Very Low Density Lipoprotein 31 mg/dL (5-40)
[2022-12-24] VITALS (10 sets, daily range): BP systolic 95–109; BP diastolic 54–72; PULSE 53–72; RESP 16–18; TEMP 36.3–36.7; O2SAT 94–100; BMI 21.1
--- NOTE | 2022-12-24 | ASPIG_PTH ---
PATIENT: YAMILET BRENNAN LOC: EN U#:[id number] AGE/SX: 67/M ROOM: RE12/24/[address]: Dr. Alex Mejia DO : 1955 BED: DIS: 12/24/2022 SPEC #: [id number] RECD: 12/24/22 13:47 STATUS: RAKESH MINH #: [id number] DARON: 12/24/22 00:[address]: Alex Mejia DEPT: CYTOLOGY RECD BY: Tommy Eid ENTERED: 12/24/22 13:48 SP TYPE: ASP OUT OTHR DR: Dr. Yamilet Medina MD Tissues: A - Lung, NOS B - Lung, NOS C - Lung, NOS D - Lung, NOS E - Lung, NOS Procedures: FNA Specimen Adequacy Special Stain Group II Surgery Specimen Level IV Cytology Other HEADER OPERATION: Endobronchial ultrasound PRE-OP DIAGNOSIS: Abnormal PET of right lung TISSUE SUBMITTED: A - EBUS, TBNA, site 4R #1, B - EBUS, TBNA, site 4R #2, C - EBUS, TBNA, site 4R #3, D - EBUS, TBNA, site 4R #4, E - EBUS, TBNA, site 4R DIAGNOSIS CYTOLOGY A. EBUS, TBNA, site 4R #1: Benign bronchial epithelial cells. Occasional lymphocytes. No evidence of malignancy. B. EBUS, TBNA, site 4R #2: Macrophages and benign bronchial epithelial cells. No evidence of malignancy. C. EBUS, TBNA, site 4R #3: Blood and lymphocytes present. No evidence of carcinoma. D. EBUS, TBNA, site 4R #4: Blood. Lymphocytes present. No evidence of malignancy. E. EBUS, TBNA, site 4R (cell block): Negative for malignant cells. No evidence of lymphoproliferative disorder. See comment. AM:sonia 12/28/2022 COMMENT The specimen is evaluated at the time of procedure by Dr. James. Rapid On-Site Evaluation: A. EBUS, TBNA, site 4R #1: Benign bronchial epithelial cells. Occasional lymphocytes. No evidence of malignancy. B. EBUS, TBNA, site 4R #2: Macrophages and benign bronchial epithelial cells. No evidence of malignancy. C. EBUS, TBNA, site 4R #3: Blood and lymphocytes present. No evidence of carcinoma. D. EBUS, TBNA, site 4R #4: Blood. Lymphocytes present. No evidence of malignancy. E. Immunohistochemistry ([id number]) supports the above diagnosis. CYTOLOGY STUDY Slides are reviewed. CYTOLOGY GROSS A - Received labeled with the patient's name and and designated EBUS, TBNA, site 4R #1. The specimen consists of two stained smears for TRUPTI (Rapid On-Site Evaluation). B - Received labeled with the patient's name and and designated EBUS, TBNA, site 4R #2. The specimen consists of two stained smears for TRUPTI. C - Received labeled with the patient's name and and designated EBUS, TBNA, site 4R #3. The specimen consists of two stained smears for TRUPTI. D - Received labeled with the patient's name and and designated EBUS, TBNA, site 4R #4. The specimen consists of two stained smears for TRUPTI. E - Received in RPMI is 20 ml of pink, needle rinsed fluid labeled with the patient's name and and designated EBUS, TBNA, site 4R. The specimen is submitted for cell block preparation. / AM:sonia 12/24/2022 TC:5 CPT: 98919 x4, 40996, 38261
--- NOTE | 2022-12-24 | IMM_PTH ---
PATIENT: YAMILET BRENNAN LOC: EN U#:[id number] AGE/SX: 67/M ROOM: RE12/24/[address]: Dr. Alex Mejia DO : 1955 BED: DIS: 12/24/2022 SPEC #: [id number] RECD: 12/27/22 13:17 STATUS: RAKESH REQ #: [id number] DARON: 12/24/22 00:[address]: Alex Mejia DEPT: IMMUNOHISTOCHEMISTRY RECD BY: Kayleigh Ortiz ENTERED: 12/27/22 13:19 SP TYPE: IMMUNO OTHR DR: Dr. Yamilet Medina MD Tissues: E - Lung, NOS Procedures: BCL-2 (add) BCL-6 (add) CD20 (add) CD3 (add) CD45 (add) CD5 (add) CD79A (add) KI-67 (add) P53 (add) Pankeratin (initial) PHYSICIAN [facility] INSTITUTION [address] [address] SPECIMEN INFORMATION: Tissue Source: E - EBUS, TBNA, site 4R Clinical Info: Abnormal PET of right lung Specimen Number: [id number] CPT code: 06855, 90864 x9 METHODOLOGY: Deparaffinized sections of prefer/formalin-fixed tissue or PAP/DQ stained slides are incubated with monoclonal/polyclonal antibodies/oligonucleotide probes. Localization is made via biotin free immunoperoxidase method. Appropriate controls are performed and reacted as expected. Results on target cell population are indicated in the following table: RESULTS: ANTIBODY / CLONE RESULT Block E AE1-3 (AE1/AE3/PCK26) negative CD3 (PS1) positive CD5 (SP10) positive CD20 (L26) negative CD45 (RP2/18) positive CD79a (11E3) positive BCL-2 (bcl-2/100/D5) negative BCL-6 (LJ046Z/A8) negative P53 (DO-7) negative, null pattern Ki-67 (30-9) positive, 2% These tests were developed and their performance characteristics determined by [facility]. They may not have been cleared or approved by the U.S. Food and Drug Administration. The FDA has determined that such clearance or approval is not necessary. The above immunohistochemical/dualISH markers are ordered and reviewed by the Pathologist. INTERPRETATION: E. EBUS, TBNA, site 4R (cell block): No evidence of lymphoproliferative disorder. AM:sonia 12/28/2022
[2022-12-24] MEDS: Lidocaine Jelly 2% 20 ML Syringe (URO-JET) 1 APPLIC (12:11)
--- NOTE | 2022-12-24 12:44 | OP.BRONCH_ITS ---
Patient Name: Yamilet Monahan Procedure Date: 12/24/2022 11:32 AM Date of : 1955 Age: 67 Procedure: Bronchoscopy Indications: Mediastinal adenopathy Providers: Alex Mejia MD Referring MD: Yamilet Medina Complications: No immediate complications Procedure: Pre-Anesthesia Assessment: - A History and Physical has been performed. Patient meds and allergies have been reviewed. The risks and benefits of the procedure and the sedation options and risks were discussed with the patient. All questions were answered and informed consent was obtained. Patient identification and proposed procedure were verified prior to the procedure by the physician and the nurse in the procedure room. Mental Status Examination: alert and oriented. Airway Examination: normal oropharyngeal airway. Respiratory Examination: clear to auscultation. CV Examination: normal. ASA Grade Assessment: II - A patient with mild systemic disease. After reviewing the risks and benefits, the patient was deemed in satisfactory condition to undergo the procedure. The anesthesia plan was to use general anesthesia. Immediately prior to administration of medications, the patient was re-assessed for adequacy to receive sedatives. The heart rate, respiratory rate, oxygen saturations, blood pressure, adequacy of pulmonary ventilation, and response to care were monitored throughout the procedure. The physical status of the patient was re-assessed after the procedure. After I obtained informed consent, the scope was passed under direct vision. Throughout the procedure, the patient's blood pressure, pulse, and oxygen saturations were monitored continuously. The ultrasound bronchoscope was introduced through the mouth, via laryngeal mask airway and advanced to the tracheobronchial tree. The procedure was accomplished without difficulty. The patient tolerated the procedure well. Findings: The laryngeal mask airway is in good position. The vocal cords appear normal. The subglottic space is normal. The trachea is of normal caliber. The stephane is sharp. The tracheobronchial tree was examined to at least the first subsegmental level. Bronchial mucosa and anatomy are normal; there are no endobronchial lesions, and no secretions. The scope was withdrawn and replaced with the EBUS bronchoscope to accomplish the ultrasound examination. Lymph Nodes: An endobronchial ultrasound endoscope was utilized to systematically examine the right lower paratracheal region (level 4R) in order to assist with guiding the biopsy needle. Lymph node sizing was performed via endobronchial ultrasound. Sampling by transbronchial needle aspiration was also performed using an Olympus ViziShot 21 gauge needle in the right lower paratracheal region (level 4R) and sent for routine cytology. - The 4R (lower paratracheal) node was evaluated. Four samples with the needle were obtained. Lymph Nodes: A PET scan was found to be hypermetabolic in the right lower paratracheal region (level 4R) node. Impression: - Mediastinal adenopathy - The airway examination was normal. - Endobronchial ultrasound was performed. - Lymph node sampling was performed. Recommendation: - Await biopsy results. Procedure Code(s): --- Professional --- 56472, Bronchoscopy, rigid or flexible, including fluoroscopic guidance, when performed; with endobronchial ultrasound (EBUS) guided transtracheal and/or transbronchial sampling (eg, aspiration[s]/biopsy[ies]), one or two mediastinal and/or hilar lymph node stations or structures Diagnosis Code(s): --- Professional --- R59.0, Localized enlarged lymph nodes R09.89, Other specified symptoms and signs involving the circulatory and respiratory systems CPT copyright 2021 [employer]. All rights reserved. The codes documented in this report are preliminary and upon nutrition specialist review may be revised to meet current compliance requirements. DO Alex Bryant MD 12/24/2022 12:44:23 PM This report has been signed electronically. Number of Addenda: 0 Note Initiated On: 12/24/2022 11:32 AM
[2022-12-27 20:07] LABS: Lamotrigine (Lamictal) Level 3.5 ug/mL (2.0-20.0); Phenobarbital,Serum 4 ug/mL (15-40); Primidone, Serum 8.4 ug/mL (5.0-12.0)
== END 2022-12-24 14:00 | disposition home or self-care (01) ==
LOC: EN 11:03 → AC 11:05
PROVIDERS: Internal Medicine Cardiovascular Disease; Psychiatry & Neurology Neurology; PCP Internal Medicine; Referring Provider Internal Medicine; Visit Provider Internal Medicine Critical Care Medicine
PROC: BB4BZZZ Ultrasonography of Pleura (ICD-10-PCS; CPT 31652; principal; 2022-12-24 11:30)
DX: R59.0 Localized enlarged lymph nodes (principal); G40.909 Epilepsy, unspecified, not intractable, without status epilepticus; Z79.02 Long term (current) use of antithrombotics/antiplatelets; F17.210 Nicotine dependence, cigarettes, uncomplicated; Z79.82 Long term (current) use of aspirin; G89.29 Other chronic pain; E78.5 Hyperlipidemia, unspecified; I25.10 Atherosclerotic heart disease of native coronary artery without angina pectoris; M54.9 Dorsalgia, unspecified; Z95.1 Presence of aortocoronary bypass graft; Z86.73 Personal history of transient ischemic attack (TIA), and cerebral infarction without residual deficits; R09.89 Other specified symptoms and signs involving the circulatory and respiratory systems; Z12.5 Encounter for screening for malignant neoplasm of prostate; G25.0 Essential tremor; E55.9 Vitamin D deficiency, unspecified; R55 Syncope and collapse
CPT/HCPCS: 31652; 36415; 80053; 80061; 80184; 80188; 82140; 82306; 82542; 83735; 84153; 84443; 85025; 85610; 85730; 88161; 88172; 88305; 88313; 88341; 88342; J7120; G0103; J2405

== ENCOUNTER → 2023-01-12 | Outpatient (CLI) | payer MEDICARE, MEDICAID, SELFPAY | END | disposition home or self-care (01) | LOC: PSN 07:51 | PROVIDERS: PCP Student in an Organized Health Care Education/Training Program; Referring Provider Psychiatry & Neurology Neurology; Visit Provider Psychiatry & Neurology Neurology | DX: G40.219 Localization-related (focal) (partial) symptomatic epilepsy and epileptic syndromes with complex partial seizures, intractable, without status epilepticus (principal) | CPT/HCPCS: 95819 ==

== ENCOUNTER → 2023-02-15 | Outpatient (CLI) | payer MEDICARE, MEDICAID, SELFPAY ==
--- NOTE | 2023-02-15 11:30 | PET_ITS ---
EXAMINATION: FDG PET/CT ? INDICATIONS: 67-year-old male with a history of prior abnormal FDG-PET study, presenting for re-evaluation. ? COMPARISON EXAMINATION: FDG-PET study dated 09/28/2022. ? TECHNIQUE: Following the intravenous administration of 13.13 mCi of F-18 deoxyglucose via the left antecubital fossa, multiplanar image acquisitions of the head, neck, chest, abdomen and pelvis to the level of the midthigh, obtained at one-hour post radiopharmaceutical administration contemporaneously interpreted with the current CT of the chest, abdomen and pelvis dated 02/15/2023 and prior FDG-PET study dated 09/28/2022 via coregistration reveal: SERUM GLUCOSE LEVEL:? 108 mg/dL? HEIGHT:?? 69 inches WEIGHT:?? 136 pounds ? FINDINGS: ? HEAD/NECK:? There is no evidence of abnormal increased glucose metabolism in the pharyngeal mucosal space, parapharyngeal space, oropharynx, bilateral-lateral and anterior neck, hypopharynx and distribution of the larynx. ? The visualized portion of the cerebral cortical-subcortical structures demonstrate symmetric and preserved glucose metabolism. ? CHEST:? There is no quantitative scintigraphic evidence of abnormal increased glucose metabolism within the context of the bilateral hemithorax pulmonary parenchyma, right and left hemithorax at the pleural interface, mediastinal structures, and left-right thoracic perihilum. The prior defined hypermetabolic foci noted within the mediastinum are not apparent on the current examination. ? CT of the chest demonstrates the following anatomic characteristics: On review of CT of the chest, there is no definitive interval change compared to the study dated 09/28/2022 parenchymal densities defined in the bilateral posterior basal lung field demonstrate no evidence of increased tracer uptake. .? ? ABDOMEN/PELVIS:? Normal physiologic distribution of the radiopharmaceutical is identified in the hepatic and splenic parenchyma, both renal units, urinary bladder, and visualized intestinal tract. A nodular focus of enhanced glucose metabolism identified in the midline mid pelvic mesentery posteriorly associated with intestinal tract. ? CT of the abdomen and pelvis is remarkable for the following: On review of CT of the abdomen/pelvis, there is no definitive interval change compared to the study dated 09/28/2022.? ? SKELETAL:? There is no evidence of quantitatively significant enhanced glucose metabolism on meticulous inspection of the appendicular and axial skeletal structures. ? Degenerative changes defined in the thoracic and lumbar spine demonstrate no evidence of increased glucose metabolism. There are no sclerotic, mixed sclerotic-lytic, or primarily lytic changes defined in the axial skeletal structures with evidence of increased FDG uptake. ? PET/PET/CT Tumor Base -Thigh Init IMPRESSION: 1. NEGATIVE EXAMINATION. There is no definitive quantitative scintigraphic evidence of viable neoplasm. 2. There is interval resolution of the prior defined mediastinal hypermetabolic foci. 3. Overall, compared to the prior FDG-PET study dated 09/28/2022, there is current absence of defined viable neoplastic disease. ? Electronic Signature Juan R Clark D.O. Accurate Quantification of SUVs for this report are calculated using the exclusive [employer]. (U.S. Patent No. [phone] B2 [phone] [place] patent [phone]). Standardization and correction of the FDG SUV metric via [employer] technology allow for vendor non-specific objective quantitative examination comparison and optimization of the sensitivity and specificity of the FDG PET-CT examination. . [email or web address] Electronically Signed: Juan R Clark DO at 11:48 EST ,
== END | disposition home or self-care (01) ==
LOC: ONC 08:46
PROVIDERS: PCP Student in an Organized Health Care Education/Training Program; Referring Provider Nurse Practitioner Acute Care; Visit Provider Nurse Practitioner Acute Care
DX: R91.8 Other nonspecific abnormal finding of lung field (principal); R94.2 Abnormal results of pulmonary function studies
CPT/HCPCS: 78815; A9552

== ENCOUNTER 2023-02-27 13:56 | Emergency (ER) | payer MEDICARE, MEDICAID, SELFPAY ==
[2023-02-27] VITALS (19 sets, daily range): BP systolic 104–127; BP diastolic 61–84; PULSE 62–180; RESP 13–24; TEMP 36.6; O2SAT 93–100
--- NOTE | 2023-02-27 14:26 | CT_ITS ---
STUDY: CT BRAIN WITHOUT CONTRAST REASON FOR EXAM: Male, 67 years old. syncope Individualized dose optimization techniques were used for this CT. TECHNIQUE: Transaxial CT imaging of the brain was performed without administration of intravenous contrast material. COMPARISON: 11.10.22 FINDINGS: There are calcifications noted in the distal vertebral arteries. There are calcifications noted in the cavernous carotid arteries. This is consistent for atherosclerotic disease. Normal calvarium. Normal soft tissues. Old right MCA infarct. There is mild cerebral atrophy with widening of the extra-axial spaces and ventricular dilatation. Normal white matter tracts of the cerebral hemispheres. Normal basal ganglia and thalami. Normal brainstem. There is mild cerebellar atrophy. There is no intracranial hemorrhage. There are no findings of an acute ischemic infarction. Normal visualized paranasal sinuses. ASPECTS Score for Acute Strokes: 10 CT/Brain/Head without Contrast IMPRESSION: There are no acute findings. Electronically Signed: Aubrey Adams MD at 15:33 EST ,
--- NOTE | 2023-02-27 14:26 | EKG12_ITS ---
Test Reason : SEIZURE Blood Pressure : / mmHG Vent. Rate : 064 BPM Atrial Rate : 064 BPM P-R Int : 172 ms QRS Dur : 094 ms QT Int : 418 ms P-R-T Axes : 079 -52 073 degrees QTc Int : 431 ms Sinus rhythm with occasional Premature ventricular complexes Left axis deviation Septal infarct , age undetermined Abnormal ECG Confirmed by CONCETTA WOODWARD, HAL ([id number]), editor news COREEN BOYER ([id number]) on 03/01/2023 10:36:24 AM Referred By: Confirmed By:HAL HYLTON MD
--- NOTE | 2023-02-27 14:28 | EDS_ITS ---
HPI <DEYSI Ortiz - Last Filed: 02/27/23 16:51> History of Present Illness Chief Complaint: Seizure Narrative Narrative: 67-year-old male with past medical history of seizures, tremor, dementia, CVA, CABG presents after syncopal episode this morning. He lives with his daughter Kaykay because of his multiple medical issues. This morning he was sitting on a stool in the kitchen when he suddenly leaned over and passed out. She states he landed lightly on the carpet and was out for couple seconds and then sat up and seemed confused. She went to the restroom and it occurred again. He is now confused from baseline and did not know the year or the month when she questioned him. He was brought in by EMS. He has a history of seizures and takes Lamictal 100 mg twice daily. She manages his medications and has not missed any doses. She states he has a seizure about once a week but they used to be much more frequent. He sees a neurologist in [place], Dr. Olivas. Patient is a poor informant and cannot provide additional history. He has a significant tremor which family states is baseline. [facility] <DEYSI Ortiz - Last Filed: 02/27/23 16:51> [facility] Medical History Abnormal electrocardiogram Alcohol use Atherosclerotic heart disease of [place] coronary artery without angina pectoris Atrial septal aneurysm Cardiology follow-up encounter Chronic back pain Complex laceration of scalp CVA (cerebral vascular accident) Depression Excessive bleeding Fall from ladder Gastric reflux Heart valve problem High cholesterol History of echocardiogram History of heart attack History of left heart catheterization (LHC) (~05/27/21) Hyperlipidemia Hypertension Injury of head and neck Migraine headache Nicotine dependence Normal stress echocardiogram Parkinson's disease Postoperative atrial fibrillation Scalp pain Scalp wound Seizure Smoker Syncope and collapse Tremor Wears dentures Wears glasses Home Medications acetaminophen 500 mg capsule 1,000 mg (2 x 500 mg) PO Q6H PRN pain #120 caps 02/24/22 [Rx Last Taken Unknown] folic acid 1 mg tablet 1 mg PO DAILY supplement #90 tabs 03/30/22 [Rx Last Taken Unknown] magnesium oxide 400 mg (241.3 mg magnesium) tablet 400 mg PO DAILY supplement #90 tabs 03/30/22 [Rx Last Taken Unknown] ondansetron 4 mg disintegrating tablet 4 mg PO Q6H PRN nausea and vomiting #10 tabs 04/10/22 [Rx Last Taken Unknown] ascorbate calcium (vitamin C) 500 mg tablet 500 mg PO DAILY vitamin #90 tabs 06/16/22 [Rx Last Taken Unknown] aspirin 81 mg tablet,delayed release (Adult Aspirin Regimen) 81 mg PO DAILY heart health #90 tabs 06/16/22 [Rx Last Taken 12/17/22] ferrous sulfate 325 mg (65 mg iron) tablet (FeroSul) 325 mg PO DAILY supplement #90 tabs 06/16/22 [Rx Last Taken Unknown] multivitamin with folic acid 400 mcg tablet (Daily-Tin (with folic acid)) 1 tab PO DAILY vitamin #90 tabs 06/16/22 [Rx Last Taken Unknown] atorvastatin 40 mg tablet 40 mg PO QHS cholesterol #30 tabs 08/10/22 [Rx Last Taken Unknown] lamotrigine 100 mg tablet 100 mg PO BID seizures #60 tabs 09/09/22 [Rx Last Taken Unknown] primidone 50 mg tablet 100 mg (2 x 50 mg) PO TID tremor #180 tabs 09/09/22 [Rx Last Taken Unknown] levetiracetam 500 mg tablet 500 mg PO BID 30 days #60 tabs 11/02/22 [Rx Last Taken Unknown] clopidogrel 75 mg tablet (Plavix) 75 mg PO DAILY anti platelet #90 tabs 11/18/22 [Rx Last Taken 12/17/22] front wheeled walker #1 ea 11/26/22 [Rx Last Taken Unknown] escitalopram oxalate 10 mg tablet (Lexapro) 10 mg PO DAILY #90 tabs 12/15/22 [Rx Last Taken Unknown] food supplemt, lactose-reduced (Ensure Original oral liquid) See Rx Instructions PO .COMPLEX Protein calorie malnutrition #60 BOTTLES 12/16/22 [Rx Last Taken Unknown] thiamine HCl (vitamin B1) 100 mg tablet 100 mg PO BID supplement 12/22/22 [History Last Taken Unknown] Allergy/AdvReac Type Severity Reaction Status Date / Time bee venom protein (honey bee) Allergy Severe Anaphylaxis Verified 02/27/23 14:07 tuberculin, purified protein Allergy Severe Swelling Verified 02/27/23 14:07 deriva Family History Mother Myocardial infarction Brother Myocardial infarction Surgical History finger surgery History of cardiac catheterization History of coronary artery bypass surgery (~09/21/21) History of lumbar puncture (~04/2017) Hx of neck surgery lymph node resection S/P triple vessel bypass Stented coronary artery (10/06/17) Social History household members: family Smoking Status: Current every day smoker tobacco type: cigarettes Tobacco: How many years used: 61 Electronic Cigarette Use: not used second hand exposure: Yes alcohol intake: current alcohol intake frequency: a few times a month Alcohol type: hard liquor details: Patient reduced his alcohol intake when 'his lady passed in 2014' substance use type: does not use caffeine: Yes Type: carbonated beverages and coffee ROS <DEYSI Ortiz - Last Filed: 02/27/23 16:51> ROS ED ROS Narrative Unable to obtain from patient as he is a poor informant. Per family no recent fever, vomiting, diarrhea, cough. EXAM <DEYSI Ortiz - Last Filed: 02/27/23 16:51> Physical Exam Narrative Exam Narrative: CONST: Patient sitting in no acute distress generalized resting tremor. EYES: Normal inspection. PERRL, EOMI. ENT: Normal inspection, moist mucous membranes. No tongue bite. NECK: Normal inspection. RESP: No respiratory distress, CTAB. CVS: Regular rate and rhythm, no murmur, no gallop. ABD: Soft and nontender, no guarding or rebound, nondistended. SKIN: Color normal, no rash, warm, dry, intact. EXTREMITIES: Normal appearance, no pedal edema. NEURO: Alert to self and year. Will not answer other questions. 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 PSYCH: Normal affect. Const Vital Signs: 02/27/23 13:58 02/27/23 17:07 02/27/23 15:04 Temperature 98 F Temperature Source Temporal Pulse Rate 64 65 95 Respiratory Rate 13 20 H 19 H Blood Pressure 114/69 113/84 H Blood Pressure Mean 84 93 Pulse Ox 97 100 96 Oxygen Delivery Method Room Air 02/27/23 15:10 02/27/23 15:15 02/27/23 15:15 Temperature Temperature Source Pulse Rate 95 64 Respiratory Rate 19 H 24 H Blood Pressure 122/69 H 122/69 H Blood Pressure Mean 84 84 Pulse Ox 95 Oxygen Delivery Method 02/27/23 15:26 02/27/23 15:30 02/27/23 15:40 Temperature Temperature Source Pulse Rate 64 62 Respiratory Rate 16 16 Blood Pressure 127/75 H Blood Pressure Mean 90 Pulse Ox 96 96 Oxygen Delivery Method 02/27/23 15:45 02/27/23 15:50 02/27/23 16:00 Temperature Temperature Source Pulse Rate 62 62 64 Respiratory Rate 17 13 16 Blood Pressure 122/68 H 116/74 Blood Pressure Mean 83 86 Pulse Ox 96 95 95 Oxygen Delivery Method 02/27/23 16:10 02/27/23 16:15 02/27/23 16:20 Temperature Temperature Source Pulse Rate 70 64 69 Respiratory Rate 15 15 15 Blood Pressure 119/69 Blood Pressure Mean 84 Pulse Ox 96 95 96 Oxygen Delivery Method 02/27/23 16:30 02/27/23 16:40 02/27/23 16:45 Temperature Temperature Source Pulse Rate 63 64 111 H Respiratory Rate 15 19 H 16 Blood Pressure 104/61 126/66 H Blood Pressure Mean 75 82 Pulse Ox 95 95 93 Oxygen Delivery Method 02/27/23 16:50 02/27/23 17:00 Temperature Temperature Source Pulse Rate 180 H 174 H Respiratory Rate 19 H 14 Blood Pressure 113/84 H Blood Pressure Mean 96 Pulse Ox 95 95 Oxygen Delivery Method Room Air <Bryan Gomez MD - Last Filed: 02/27/23 19:22> Physical Exam Const Vital Signs: 02/27/23 13:58 02/27/23 17:07 02/27/23 15:04 Temperature 98 F Temperature Source Temporal Pulse Rate 64 65 95 Respiratory Rate 13 20 H 19 H Blood Pressure 114/69 113/84 H Blood Pressure Mean 84 93 Pulse Ox 97 100 96 Oxygen Delivery Method Room Air 02/27/23 15:10 02/27/23 15:15 02/27/23 15:15 Temperature Temperature Source Pulse Rate 95 64 Respiratory Rate 19 H 24 H Blood Pressure 122/69 H 122/69 H Blood Pressure Mean 84 84 Pulse Ox 95 Oxygen Delivery Method 02/27/23 15:26 02/27/23 15:30 02/27/23 15:40 Temperature Temperature Source Pulse Rate 64 62 Respiratory Rate 16 16 Blood Pressure 127/75 H Blood Pressure Mean 90 Pulse Ox 96 96 Oxygen Delivery Method 02/27/23 15:45 02/27/23 15:50 02/27/23 16:00 Temperature Temperature Source Pulse Rate 62 62 64 Respiratory Rate 17 13 16 Blood Pressure 122/68 H 116/74 Blood Pressure Mean 83 86 Pulse Ox 96 95 95 Oxygen Delivery Method 02/27/23 16:10 02/27/23 16:15 02/27/23 16:20 Temperature Temperature Source Pulse Rate 70 64 69 Respiratory Rate 15 15 15 Blood Pressure 119/69 Blood Pressure Mean 84 Pulse Ox 96 95 96 Oxygen Delivery Method 02/27/23 16:30 02/27/23 16:40 02/27/23 16:45 Temperature Temperature Source Pulse Rate 63 64 111 H Respiratory Rate 15 19 H 16 Blood Pressure 104/61 126/66 H Blood Pressure Mean 75 82 Pulse Ox 95 95 93 Oxygen Delivery Method 02/27/23 16:50 02/27/23 17:00 Temperature Temperature Source Pulse Rate 180 H 174 H Respiratory Rate 19 H 14 Blood Pressure 113/84 H Blood Pressure Mean 96 Pulse Ox 95 95 Oxygen Delivery Method Room Air [facility] <DEYSI Ortiz - Last Filed: 02/27/23 16:51> [facility] Narrative Medical decision making narrative: Per sister's report patient had 2 brief syncopal episodes this morning. She states it did not seem like his seizure disorder. He is compliant with Lamictal. He is awake and alert to self and the year. This is a change from baseline as he is usually fully oriented. He has no focal neurological deficits. He has a significant resting tremor which is chronic. Broad workup for syncope versus seizure was done. Differential includes electrode abnormality, infection, seizure, cardiac, intracranial process. Labs show slight leukocytosis at 11.8, otherwise normal. EKG is nonischemic and troponin is 7. Urine tox screen positive for barbiturates from his primidone for essential tremor but nothing else. CT brain and CXR showed no acute process. When patient was reevaluated he is alert and oriented x 4. He is answering all historical questions appropriately. Sister said he is acting his normal self. When I discussed the history further he has had 4 similar events over the last 3 months. She states he has been seen here each time and had a negative workup. Based on this I do not think he needs admitted and recommended he follow-up with his PCP and neurologist. He was discharged in stable condition. Lab Data Attestation: I reviewed the patient's lab results. Labs: Laboratory Results - last 24 hr 02/27/23 02/27/23 02/27/23 14:10 14:45 14:55 WBC 11.8 H RBC 4.06 L Hgb 13.6 Hct 40.6 MCV 100.0 H MCH 33.5 H MCHC 33.5 RDW Std Deviation 46.4 H RDW Coeff of [place] 12.5 Plt Count 261 MPV 9.9 Immature Gran % (Auto) 0.300 Neut % (Auto) 39.6 L Lymph % (Auto) 44.5 H [place] % (Auto) 5.2 Eos % (Auto) 9.8 H Baso % (Auto) 0.6 Absolute Neuts (auto) 4.7 Absolute Lymphs (auto) 5.26 H Nucleated RBC % 0 Differential Comment SCANNED Sodium 140 Potassium 4.4 Chloride 102 Carbon Dioxide 34.0 H Anion Gap 4 L BUN 13 Creatinine 1.03 Est GFR (MDRD) Af Amer 92 Est GFR (MDRD) Non-Af 76 BUN/Creatinine Ratio 12.6 Glucose 88 Calcium 8.8 Total Bilirubin 0.60 AST 22 ALT 36 Alkaline Phosphatase 80 Troponin I High Sens 7 Total Protein 6.4 Albumin 3.3 Globulin 3.1 Albumin/Globulin Ratio 1.1 Urine Color Yellow Urine Clarity Clear Urine pH 8.0 Ur Specific [place] 1.010 Urine Protein Negative Urine Glucose (UA) Normal Urine Ketones Negative Urine Occult Blood Negative Urine Nitrite Negative Urine Bilirubin Negative Urine Urobilinogen Normal Ur Leukocyte Esterase Negative Urine RBC 0 SEEN Urine WBC 0 SEEN Ur Squamous Epith Cells 0 SEEN Urine Bacteria 0 SEEN Urine Mucus 0 SEEN Urine Opiates Screen NEGATIVE Urine Methadone Screen NEGATIVE Ur Barbiturates Screen POSITIVE H Ur Phencyclidine Scrn NEGATIVE Ur Amphetamines Screen NEGATIVE MDMA (Ecstasy) Screen NEGATIVE U Benzodiazepines Scrn NEGATIVE Urine Cocaine Screen NEGATIVE U Cannabinoids Screen NEGATIVE Ur Drug Screen Comment Radiography Diagnostic Testing: Clinical Impression(s) from Imaging Studies Brain CT 02/27/23 14:26 IMPRESSION: There are no acute findings. Electronically Signed: Aubrey Adams MD at 15:33 EST , Chest X-Ray 02/27/23 15:18 IMPRESSION: There are no acute findings. Electronically Signed: Aubrey Adams MD at 15:46 EST , <Bryan Gomez MD - Last Filed: 02/27/23 19:22> [facility] Narrative Medical decision making narrative: Per sister's report patient had 2 brief syncopal episodes this morning. She states it did not seem like his seizure disorder. He is compliant with Lamictal. He is awake and alert to self and the year. This is a change from baseline as he is usually fully oriented. He has no focal neurological deficits. He has a significant resting tremor which is chronic. Broad workup for syncope versus seizure was done. Differential includes electrode abnormality, infection, seizure, cardiac, intracranial process. Labs show slight leukocytosis at 11.8, otherwise normal. EKG is nonischemic and troponin is 7. Urine tox screen positive for barbiturates from his primidone for essential tremor but nothing else. CT brain and CXR showed no acute process. When patient was reevaluated he is alert and oriented x 4. He is answering all historical questions appropriately. Sister said he is acting his normal self. When I discussed the history further he has had 4 similar events over the last 3 months. She states he has been seen here each time and had a negative workup. Based on this I do not think he needs admitted and recommended he follow-up with his PCP and neurologist. He was discharged in stable condition. Dr. Gomez: I have personally performed a face to face assessment of the patient and have reviewed the RIGOBERTO Note. I performed a substantive portion of the visit including all aspects of the following. My cat findings include: History is syncope versus seizure. Previous episodes of syncope according to daughter. History of baseline tremor. Exam is afebrile. Vital signs noted. Awake, alert, oriented. Positive tremor noted on examination at baseline. Medical Decision Making: Check labs. Check EKG. Is not felt that he requires observation at this time. Through shared decision making, he will follow-up with neurology as scheduled. Return instructions reviewed. Disposition is discharged home in stable condition. Other additions or changes: [None] History & Record Review Discussion w/independent historian: Patient and Family Additional record(s) reviewed:: Prior ED visit Lab Data Labs: Laboratory Results - last 24 hr 02/27/23 02/27/23 02/27/23 14:10 14:45 14:55 WBC 11.8 H RBC 4.06 L Hgb 13.6 Hct 40.6 MCV 100.0 H MCH 33.5 H MCHC 33.5 RDW Std Deviation 46.4 H RDW Coeff of [place] 12.5 Plt Count 261 MPV 9.9 Immature Gran % (Auto) 0.300 Neut % (Auto) 39.6 L Lymph % (Auto) 44.5 H [place] % (Auto) 5.2 Eos % (Auto) 9.8 H Baso % (Auto) 0.6 Absolute Neuts (auto) 4.7 Absolute Lymphs (auto) 5.26 H Nucleated RBC % 0 Differential Comment SCANNED Sodium 140 Potassium 4.4 Chloride 102 Carbon Dioxide 34.0 H Anion Gap 4 L BUN 13 Creatinine 1.03 Est GFR (MDRD) Af Amer 92 Est GFR (MDRD) Non-Af 76 BUN/Creatinine Ratio 12.6 Glucose 88 Calcium 8.8 Total Bilirubin 0.60 AST 22 ALT 36 Alkaline Phosphatase 80 Troponin I High Sens 7 Total Protein 6.4 Albumin 3.3 Globulin 3.1 Albumin/Globulin Ratio 1.1 Urine Color Yellow Urine Clarity Clear Urine pH 8.0 Ur Specific [place] 1.010 Urine Protein Negative Urine Glucose (UA) Normal Urine Ketones Negative Urine Occult Blood Negative Urine Nitrite Negative Urine Bilirubin Negative Urine Urobilinogen Normal Ur Leukocyte Esterase Negative Urine RBC 0 SEEN Urine WBC 0 SEEN Ur Squamous Epith Cells 0 SEEN Urine Bacteria 0 SEEN Urine Mucus 0 SEEN Urine Opiates Screen NEGATIVE Urine Methadone Screen NEGATIVE Ur Barbiturates Screen POSITIVE H Ur Phencyclidine Scrn NEGATIVE Ur Amphetamines Screen NEGATIVE MDMA (Ecstasy) Screen NEGATIVE U Benzodiazepines Scrn NEGATIVE Urine Cocaine Screen NEGATIVE U Cannabinoids Screen NEGATIVE Ur Drug Screen Comment Radiography Diagnostic Testing: Clinical Impression(s) from Imaging Studies Brain CT 02/27/23 14:26 IMPRESSION: There are no acute findings. Electronically Signed: Aubrey Adams MD at 15:33 EST , Chest X-Ray 02/27/23 15:18 IMPRESSION: There are no acute findings. Electronically Signed: Aubrey Adams MD at 15:46 EST Reading Location ID and State: [facility] / [place] , Service support , Discharge Plan Triage Chief Complaint: Seizure ED Midlevel Provider: Meaghan Sanchez ED Provider: Bryan Gomez Dx/Rx/DC Orders Clinical Impression: Syncope, History of seizure disorder Instructions: Causes of Syncope Prescriptions: No Action primidone 50 mg tablet 100 mg PO TID Qty: 180 5RF lamotrigine 100 mg tablet 100 mg PO BID Qty: 60 5RF ondansetron 4 mg tablet,disintegrating 4 mg PO Q6H PRN (Reason: nausea and vomiting) Qty: 10 0RF levetiracetam 500 mg Tablet 500 mg PO BID 30 Days Qty: 60 0RF thiamine HCl (vitamin B1) 100 mg tablet 100 mg PO BID acetaminophen 500 mg capsule 1,000 mg PO Q6H PRN (Reason: pain) Qty: 120 1RF Rx Instructions: 14 day #28 folic acid 1 mg tablet 1 mg PO DAILY Qty: 90 3RF magnesium oxide 400 mg (241.3 mg magnesium) tablet 400 mg PO DAILY Qty: 90 3RF ascorbate calcium (vitamin C) 500 mg tablet 500 mg PO DAILY Qty: 90 1RF aspirin [Adult Aspirin Regimen] 81 mg tablet,delayed release (DR/EC) 81 mg PO DAILY Qty: 90 3RF ferrous sulfate [FeroSul] 325 mg (65 mg iron) tablet 325 mg PO DAILY Qty: 90 3RF multivitamin with folic acid [Daily-Tin (with folic acid)] 400 mcg tablet 1 tab PO DAILY Qty: 90 3RF atorvastatin 40 mg tablet 40 mg PO QHS Qty: 30 12RF clopidogrel [Plavix] 75 mg tablet 75 mg PO DAILY Qty: 90 3RF (DME) front wheeled walker See Rx Instructions .Route .MEDSUPPLY Qty: 1 0RF Rx Instructions: As directed escitalopram oxalate [Lexapro] 10 mg tablet 10 mg PO DAILY Qty: 90 3RF Ensure Original Liquid See Rx Instructions PO .COMPLEX Qty: 60 5RF Rx Instructions: 1 can twice daily orally; Primary Care Provider: Nilton Mclean Referrals: Nilton Mclean DO [Primary Care Provider] - Activity Restrictions/Additional Instructions: Please follow-up with your primary care doctor and neurology Disposition Disposition: Home, Self Care Discharge Date/Time: 02/27/23 17:09
[2023-02-27] MEDS: 0.9% Normal Saline (1000mL) 1,000 ML 1000 ML IV (14:35)
[2023-02-27 14:52] LABS: Bacteria 0 SEEN /hpf (None Seen); Mucous, Urine 0 SEEN /hpf (<or=2+); Red Blood Cells-Urine 0 SEEN /hpf (0-5); Squamous Epithelial Cells - UA 0 SEEN /hpf (0-5); White Blood Cells 0 SEEN /hpf (0-5)
[2023-02-27 14:56] LABS: Absolute Lymphocyte Count 5.26 X10^3/uL (0.83-4.51); Absolute Neutrophil Count 4.7 X10^3/uL (2.0-7.7); Basophil# 0.07 X10^3/uL; Basophil% 0.6 % (0-1); Eosinophil# 1.16 X10^3/uL; Eosinophils% 9.8 % (0-5); Hematocrit 40.6 % (40-54); Hemoglobin 13.6 g/dL (13.0-16.5); Lymphocyte # 5.26 X10^3/ul (0.83-4.51); Lymphocyte % 44.5 % (19-41); Mean Corp Hgb Conc 33.5 g/dL (32-36); Mean Corpuscular Hgb 33.5 pg (27.0-32.0); Mean Platelet Vol. 9.9 fl (6.2-12.0); Monocyte# 0.62 X10^3/uL; Monocyte% 5.2 % (0-10); NRBC Flagged by Analyzer 0 % (0-5); Neutrophil # 4.66 X10^3/uL (2.7-7.7); Neutrophil % 39.6 % (47-70); POSITIVE DIFFERENTIAL YES; POSITIVE MORPHOLOGY YES; Platelet Count 261 K/mm3 (150-450); RBC Distribution Width CV 12.5 % (11.6-14.6); RBC Distribution Width SD 46.4 fl (35.1-43.9); Red Blood Count 4.06 M/mm3 (4.6-6.2); White Blood Count 11.8 K/mm3 (4.4-11.0)
[2023-02-27 14:56] LABS: Color, Urine Yellow (Yellow); Glucose, Dipstick Normal (Normal); Ketone-Dipstick Negative (Negative); Leukocyte Esterase-Dipstick Negative /ul (Negative); Nitrite-Dipstick Negative (Negative); Occult Blood-Urine Negative /ul (Negative); Protein-Dipstick Negative (Negative); Urine Bilirubin Dipstick Negative (Negative); Urine Clarity Clear (Clear); Urine Urobilinogen Normal (Normal)
[2023-02-27 14:57] LABS: Differential Indicated SCAN CRITERIA MET
[2023-02-27 15:12] LABS: ALB/GLOB Ratio 1.1 RATIO (0.9-2.4); AST(SGOT) 22 U/L (15-37); Alanine Aminotransfer ALT/SGPT 36 U/L (16-61); Albumin, Serum 3.3 g/dL (3.2-5.0); Alkaline Phosphatase 80 U/L (45-117); Anion Gap 4 (5-15); BUN 13 mg/dL (7-18); BUN/Creat Ratio 12.6 RATIO (10-20); Calcium,Total 8.8 mg/dL (8.5-10.1); Chloride 102 mmol/L (98-107); Creatinine, Serum 1.03 mg/dL (0.70-1.30); EST Glomerular Filtration Rate 76 mL/min (>60); Est Glom Filt Rate - Afr Amer 92 mL/min (>60); Globulin 3.1 g/dL (2.2-4.2); Glucose 88 mg/dL (74-106); Potassium 4.4 mmol/L (3.5-5.1); Protein, Total 6.4 g/dL (6.4-8.2); Sodium Level 140 mmol/L (136-145); Troponin-I HS 7 pg/mL (3.0-78.0)
[2023-02-27 15:18] LABS: Differential Comment SCANNED
--- NOTE | 2023-02-27 15:18 | RAD_ITS ---
STUDY: XR Chest 1 View 02/27/2023 3:18 PM REASON FOR EXAM: Male, 67 years old. syncope COMPARISON: 11/10/2022 TECHNIQUE: XR Chest 1 View FINDINGS: There is no demonstrated pleural abnormality. There are multiple median sternotomy wires. Normal heart size. Normal mediastinum. Normal mariluz. Prominent appearing increased interstitial lung markings. Normal visualized pulmonary arteries. There is atherosclerotic calcification of the aortic arch with tortuosity. There are diffuse degenerative changes of the visualized thoracic spine. There is degenerative osteoarthritis of the bilateral shoulders. There are no acute findings of the upper abdomen. RAD/Chest 1 View (Portable) IMPRESSION: There are no acute findings. Electronically Signed: Aubrey Adams MD at 15:46 EST ,
[2023-02-27 16:20] LABS: Amphetamine Urine VISTA NEGATIVE (<1000 ng/mL); Barbiturate Urine VISTA POSITIVE (< 200 ng/mL); Benzodiazepine Urine VISTA NEGATIVE (< 200 ng/mL); Cocaine Urine VISTA NEGATIVE (< 300 ng/mL); Ecstacy Urine VISTA NEGATIVE (< 500 ng/mL); Methadone Urine VISTA NEGATIVE (< 300 ng/mL); PCP Urine VISTA NEGATIVE (< 25 ng/mL); THC Urine VISTA NEGATIVE (< 50 ng/mL); Vista UDS pH Range 6
== END 2023-02-27 17:09 | disposition home or self-care (01) ==
PROVIDERS: Physician Assistant; Emergency Provider Emergency Medicine; PCP Student in an Organized Health Care Education/Training Program; Visit Provider Emergency Medicine
DX: R55 Syncope and collapse (principal); G40.909 Epilepsy, unspecified, not intractable, without status epilepticus; E78.00 Pure hypercholesterolemia, unspecified; F17.210 Nicotine dependence, cigarettes, uncomplicated; I25.10 Atherosclerotic heart disease of native coronary artery without angina pectoris; I10 Essential (primary) hypertension; Z79.899 Other long term (current) drug therapy; Z86.73 Personal history of transient ischemic attack (TIA), and cerebral infarction without residual deficits; Z79.82 Long term (current) use of aspirin; R25.1 Tremor, unspecified; Z79.02 Long term (current) use of antithrombotics/antiplatelets; F32.A Depression, unspecified; Z95.5 Presence of coronary angioplasty implant and graft
CPT/HCPCS: 70450; 71045; 80053; 80307; 81001; 84484; 85025; 93005; 96360; 99285; J7030; A4216

== ENCOUNTER 2023-05-23 16:59 | Emergency (ER) | payer MEDICARE, MEDICAID, SELFPAY ==
[2023-05-23] VITALS (16 sets, daily range): BP systolic 98–112; BP diastolic 55–68; PULSE 48–64; RESP 9–19; TEMP 36.3–36.8; O2SAT 96–100; BMI 20.6
--- NOTE | 2023-05-23 17:43 | EKG12_ITS ---
Test Reason : CP Blood Pressure : / mmHG Vent. Rate : 066 BPM Atrial Rate : 066 BPM P-R Int : 156 ms QRS Dur : 094 ms QT Int : 408 ms P-R-T Axes : 093 043 067 degrees QTc Int : 427 ms Sinus rhythm with Premature supraventricular complexes Incomplete right bundle branch block Septal infarct , age undetermined Abnormal ECG Confirmed by CONCETTA WOODWARD, HAL ([id number]), school photograph editor COREEN BOYER ([id number]) on 05/24/2023 9:45:27 AM Referred By: VALDEZ/ARCHANA Confirmed By:HAL HYLTON MD
[2023-05-23 17:52] LABS: Absolute Lymphocyte Count 6.21 X10^3/uL (0.83-4.51); Basophil# 0.05 X10^3/uL; Basophil% 0.4 % (0-1); Eosinophil# 0.96 X10^3/uL; Eosinophils% 8.4 % (0-5); Hematocrit 38.5 % (40-54); Hemoglobin 12.9 g/dL (13.0-16.5); Lymphocyte # 6.21 X10^3/ul (0.83-4.51); Lymphocyte % 54.3 % (19-41); Mean Corp Hgb Conc 33.5 g/dL (32-36); Mean Corpuscular Hgb 33.3 pg (27.0-32.0); Mean Corpuscular Volume 99.5 fL (80-94); Mean Platelet Vol. 10.7 fl (6.2-12.0); Monocyte# 1.19 X10^3/uL; Monocyte% 10.4 % (0-10); NRBC Flagged by Analyzer 0 % (0-5); Neutrophil # 3.01 X10^3/uL (2.7-7.7); Neutrophil % 26.4 % (47-70); POSITIVE DIFFERENTIAL YES; POSITIVE MORPHOLOGY YES; Platelet Count 246 K/mm3 (150-450); RBC Distribution Width CV 12.5 % (11.6-14.6); RBC Distribution Width SD 45.4 fl (35.1-43.9); Red Blood Count 3.87 M/mm3 (4.6-6.2); White Blood Count 11.4 K/mm3 (4.4-11.0)
--- NOTE | 2023-05-23 17:54 | RAD_ITS ---
STUDY: X-RAY CHEST REASON FOR EXAM: Male, 67 years old. chest pain TECHNIQUE: Single frontal view of the chest. COMPARISON: February 27, 2023 FINDINGS: Sternotomy wires. Lungs are hyperaerated. Possible new mild left lower lobe infiltrates. There is no demonstrated pleural abnormality. Normal size heart. Normal mediastinum and mariluz. Normal visualized pulmonary arteries. Normal visualized aortic arch and descending thoracic aorta. Normal visualized thoracic spine. Normal visualized ribs, clavicles, and shoulders. There is no demonstrated abnormality of the visualized soft tissue structures of the upper abdomen. RAD/Chest 1 View (Portable) IMPRESSION: COPD. Possible left lower lobe infiltrate.. Electronically Signed: Neil Lazar MD at 18:41 EST ,
[2023-05-23 17:56] LABS: Differential Indicated SCAN CRITERIA MET
[2023-05-23 18:11] LABS: Anion Gap 1 (5-15); BUN 14 mg/dL (7-18); BUN/Creat Ratio 14.1 RATIO (10-20); Calcium,Total 8.8 mg/dL (8.5-10.1); Chloride 110 mmol/L (98-107); Creatinine, Serum 0.99 mg/dL (0.70-1.30); EST Glomerular Filtration Rate 80 mL/min (>60); Est Glom Filt Rate - Afr Amer 96 mL/min (>60); Estimated Creatinine Clearance 67.88 ml/min; Glucose 86 mg/dL (74-106); Potassium 3.9 mmol/L (3.5-5.1); Sodium Level 139 mmol/L (136-145); Troponin-I HS (w/2H Reflex) 6 pg/mL (3.0-78.0)
[2023-05-23 18:12] LABS: BNP,B-Type NATRIURETIC PEPTIDE 21.9 pg/mL (0-100)
--- NOTE | 2023-05-23 19:17 | ED.VIS.CHEST ---
HPI History of Present Illness Chief Complaint: Chest Pain Narrative Narrative: 67-year-old male presenting with chest pain. He has history of CAD, CABG, A-fib. On Eliquis, hypertension, tobacco abuse, hyperlipidemia. Patient states he started having chest pain which felt like sharp pain in the left upper chest wall which lasted about an hour from 4-5. Patient was given aspirin and took nitroglycerin. States his pain resolved when he came to the ER. He arrived by EMS. He states that when he was feeling the pain he had some lightheadedness and nausea and a little bit of dizziness. He was not significantly short of breath. He felt like he had a little bit of a tremor all day and does have an essential tremor at baseline. This is now resolved. No fevers at home. No cough. Patient feels at his baseline currently. States he sees cardiology at [facility] but also has been seen by Dr. Morin here at [facility]. He states that Dr. Morin did his cardiac stents. [facility] Medical History Abnormal electrocardiogram Alcohol use Atherosclerotic heart disease of [place] coronary artery without angina pectoris Atrial septal aneurysm Cardiology follow-up encounter Chronic back pain Complex laceration of scalp CVA (cerebral vascular accident) Depression Excessive bleeding Fall from ladder Gastric reflux Heart valve problem High cholesterol History of echocardiogram History of heart attack History of left heart catheterization (LHC) (~05/27/21) Hyperlipidemia Hypertension Injury of head and neck Migraine headache Nicotine dependence Normal stress echocardiogram Parkinson's disease Postoperative atrial fibrillation Scalp pain Scalp wound Seizure Smoker Syncope and collapse Tremor Wears dentures Wears glasses Home Medications acetaminophen 500 mg capsule 1,000 mg (2 x 500 mg) PO Q6H PRN pain #120 caps 02/24/22 [Rx Last Taken Unknown] folic acid 1 mg tablet 1 mg PO DAILY supplement #90 tabs 03/30/22 [Rx Last Taken Unknown] magnesium oxide 400 mg (241.3 mg magnesium) tablet 400 mg PO DAILY supplement #90 tabs 03/30/22 [Rx Last Taken Unknown] ondansetron 4 mg disintegrating tablet 4 mg PO Q6H PRN nausea and vomiting #10 tabs 04/10/22 [Rx Last Taken Unknown] ascorbate calcium (vitamin C) 500 mg tablet 500 mg PO DAILY vitamin #90 tabs 06/16/22 [Rx Last Taken Unknown] aspirin 81 mg tablet,delayed release (Adult Aspirin Regimen) 81 mg PO DAILY heart health #90 tabs 06/16/22 [Rx Last Taken 12/17/22] ferrous sulfate 325 mg (65 mg iron) tablet (FeroSul) 325 mg PO DAILY supplement #90 tabs 06/16/22 [Rx Last Taken Unknown] multivitamin with folic acid 400 mcg tablet (Daily-Tin (with folic acid)) 1 tab PO DAILY vitamin #90 tabs 06/16/22 [Rx Last Taken Unknown] atorvastatin 40 mg tablet 40 mg PO QHS cholesterol #30 tabs 08/10/22 [Rx Last Taken Unknown] lamotrigine 100 mg tablet 100 mg PO BID seizures #60 tabs 09/09/22 [Rx Last Taken Unknown] primidone 50 mg tablet 100 mg (2 x 50 mg) PO TID tremor #180 tabs 09/09/22 [Rx Last Taken Unknown] levetiracetam 500 mg tablet 500 mg PO BID 30 days #60 tabs 11/02/22 [Rx Last Taken Unknown] clopidogrel 75 mg tablet (Plavix) 75 mg PO DAILY anti platelet #90 tabs 11/18/22 [Rx Last Taken 12/17/22] front wheeled walker #1 ea 11/26/22 [Rx Last Taken Unknown] escitalopram oxalate 10 mg tablet (Lexapro) 10 mg PO DAILY #90 tabs 12/15/22 [Rx Last Taken Unknown] food supplemt, lactose-reduced (Ensure Original oral liquid) See Rx Instructions PO .COMPLEX Protein calorie malnutrition #60 BOTTLES 12/16/22 [Rx Last Taken Unknown] thiamine HCl (vitamin B1) 100 mg tablet 100 mg PO BID supplement 12/22/22 [History Last Taken Unknown] Allergy/AdvReac Type Severity Reaction Status Date / Time bee venom protein (honey bee) Allergy Severe Anaphylaxis Verified 05/23/23 17:01 tuberculin, purified protein Allergy Severe Swelling Verified 05/23/23 17:01 deriva Family History Mother Myocardial infarction Brother Myocardial infarction Surgical History finger surgery History of cardiac catheterization History of coronary artery bypass surgery (~09/21/21) History of lumbar puncture (~04/2017) Hx of neck surgery lymph node resection S/P triple vessel bypass Stented coronary artery (10/06/17) Social History household members: family Smoking Status: Heavy Smoker (>10/day) Tobacco: How many years used: 61 Electronic Cigarette Use: not used second hand exposure: Yes alcohol intake: current alcohol intake frequency: a few times a month Alcohol type: hard liquor details: Patient reduced his alcohol intake when 'his lady passed in 2014' substance use type: does not use caffeine: Yes Type: carbonated beverages and coffee ROS ROS ED Constitutional Constitutional ED: Denies chills, fever(s) or sweats Eyes Eyes: Reports blurry vision; Denies change in vision ENT ENT ED: Denies rhinorrhea Cardiovascular Cardiovascular: Reports chest pain, palpitations and racing heartbeat Respiratory/Chest Respiratory/Chest: Denies cough, dyspnea or sputum Gastrointestinal Gastrointestinal: Denies abdominal pain, constipation, diarrhea, nausea or vomiting Genitourinary Genitourinary ED: Denies dysuria, hematuria or urinary frequency Musculoskeletal Musculoskeletal: Denies arthralgias, myalgias or neck pain Integumentary Denies abscess, Abrasions or rash Neurologic Neurologic: Denies headache(s), paresthesias or weakness Psychiatric Psychiatric: Denies anxiety, depression, suicidal ideation or suicidal thoughts Endocrine Endocrinology: Denies polydipsia or polyuria EXAM Physical Exam Const Vital Signs: 05/23/23 17:01 05/23/23 17:07 05/23/23 17:43 Temperature 98.2 F Temperature Source Temporal Pulse Rate 64 Respiratory Rate 15 Respiratory Pattern Normal Blood Pressure 102/59 L Blood Pressure Mean 73 Pulse Ox 98 Oxygen Delivery Method Room Air Room Air 05/23/23 18:25 05/23/23 18:30 05/23/23 18:40 Temperature Temperature Source Pulse Rate 54 L 52 L 55 L Respiratory Rate 16 16 17 Respiratory Pattern Blood Pressure 98/60 Blood Pressure Mean 72 Pulse Ox 96 96 97 Oxygen Delivery Method 05/23/23 18:45 05/23/23 18:50 05/23/23 19:00 Temperature Temperature Source Pulse Rate 55 L 48 L 52 L Respiratory Rate 9 L 11 L 17 Respiratory Pattern Blood Pressure 110/63 101/55 L Blood Pressure Mean 78 69 Pulse Ox 99 97 98 Oxygen Delivery Method Room Air Room Air 05/23/23 19:10 05/23/23 19:15 05/23/23 19:20 Temperature Temperature Source Pulse Rate 52 L 50 L 60 Respiratory Rate 16 16 18 Respiratory Pattern Blood Pressure 104/58 L Blood Pressure Mean 73 Pulse Ox 98 96 98 Oxygen Delivery Method 05/23/23 19:33 05/23/23 19:40 05/23/23 19:45 Temperature Temperature Source Pulse Rate 55 L 52 L 54 L Respiratory Rate 18 17 Respiratory Pattern Blood Pressure 110/68 Blood Pressure Mean 82 Pulse Ox 99 100 Oxygen Delivery Method Room Air 05/23/23 19:50 05/23/23 20:00 Temperature Temperature Source Pulse Rate 55 L 51 L Respiratory Rate 19 H 16 Respiratory Pattern Blood Pressure Blood Pressure Mean Pulse Ox 98 99 Oxygen Delivery Method Positive well nourished General Appearance ED: NAD; Negative for pallor HEENT Reports moist mucous membranes Eyes PERRL and EOMs intact bilaterally Neck no lymphadenopathy Resp normal respiratory effort and clear to auscultation bilaterally Auscultation: Negative for rales, rhonchi or wheezes Cardio regular rate and regular rhythm GI normal to inspection, nondistended, normoactive bowel sounds Back/Spine no CVA tenderness Extremity normal to inspection Neuro oriented x3 and CN's II-XII intact bilaterally Sensorium / Orientation: awake and alert Skin no rashes or lesions noted General Skin Exam: Negative for jaundice or pallor Heart Score History: Slightly/Non-Suspicious ECG: Nonspecific Repolarization Age: >/= 65 years Risk Factors: >/= 3 Risk Factors or History of CAD Score: 5 MDM MDM MDM Narrative Medical decision making narrative: Patient presenting with chest pain which he felt was sharp and stabbing prior to arrival. EKG by squad showed a flutter. He is now in normal sinus rhythm. EKG here in the emergency room shows a normal sinus rhythm at a ventricular rate of 66 bpm without sign of ischemic change. Differential includes ACS, pneumonia, A-fib, a flutter, dehydration, anemia, electrolyte abnormalities, CHF. CBC will be obtained to assess white blood cell count, hemoglobin, platelets. BMP to assess renal function, electrolytes, glucose. High-sensitivity troponin and BNP will be obtained. Chest x-ray to rule out pneumonia or CHF. CBC shows normal white blood cell count 11.4. Hemoglobin 12.9. Platelets are 246. Creatinine normal at 0.99. Electrolytes normal. High-sensitivity troponin is 6. BNP 21.9. Patient currently pain-free. Will obtain a delta troponin. Patient is already given aspirin 324 mg and is pain-free. Delta troponin came back at 7 and therefore there is no significant interval change. Patient tells me that he is anticoagulated on Eliquis. His heart rate is generally controlled. He has had 2 normal troponins that he is pain-free. I suspect maybe he was in a tachycardic rhythm but he feels better now. He is on rate control and anticoagulated so I believe he safe to go home. Chest x-ray my interpretation shows no acute process. Radiologist interprets this as some possible left lower lobe infiltrate however the patient has no cough, fever, chills, shortness of breath and his vital signs are all normal. At this point I feel the patient stable for discharge. Impression: 1 chest pain 2. Atrial flutter?resolved Lab Data Attestation: I reviewed the patient's lab results. Labs: Laboratory Results - last 24 hr 05/23/23 05/23/23 17:18 19:30 WBC 11.4 H RBC 3.87 L Hgb 12.9 L Hct 38.5 L MCV 99.5 H MCH 33.3 H MCHC 33.5 RDW Std Deviation 45.4 H RDW Coeff of Verito 12.5 Plt Count 246 MPV 10.7 Immature Gran % (Auto) 0.100 Neut % (Auto) 26.4 L Lymph % (Auto) 54.[address] [facility] % (Auto) 10.4 H Eos % (Auto) 8.4 H Baso % (Auto) 0.4 Absolute Neuts (auto) 3.0 Absolute Lymphs (auto) 6.21 H Nucleated RBC % 0 Differential Comment Sodium 139 Potassium 3.9 Chloride 110 H Carbon Dioxide 28.0 Anion Gap 1 L BUN 14 Creatinine 0.99 Estim Creat Clear Calc 67.88 Est GFR (MDRD) Af Amer 96 Est GFR (MDRD) Non-Af 80 BUN/Creatinine Ratio 14.1 Glucose 86 Calcium 8.8 Troponin I High Sens 6 7 B-Natriuretic Peptide 21.9 Radiography Diagnostic Testing: Clinical Impression(s) from Imaging Studies Chest X-Ray 05/23/23 17:54 IMPRESSION: COPD. Possible left lower lobe infiltrate.. Electronically Signed: Neil Lazar MD at 18:41 EST Reading Location ID and State: [facility] / ID Tel , Service support , Discharge Plan Triage Chief Complaint: Chest Pain ED Provider: Thai Nice Dx/Rx/DC Orders Clinical Impression: Chest wall pain Instructions: ED Atrial Flutter, ED Chest Pain, Uncertain Cause Prescriptions: No Action primidone 50 mg tablet 100 mg PO TID Qty: 180 5RF lamotrigine 100 mg tablet 100 mg PO BID Qty: 60 5RF ondansetron 4 mg tablet,disintegrating 4 mg PO Q6H PRN (Reason: nausea and vomiting) Qty: 10 0RF levetiracetam 500 mg Tablet 500 mg PO BID 30 Days Qty: 60 0RF thiamine HCl (vitamin B1) 100 mg tablet 100 mg PO BID acetaminophen 500 mg capsule 1,000 mg PO Q6H PRN (Reason: pain) Qty: 120 1RF Rx Instructions: 14 day #28 folic acid 1 mg tablet 1 mg PO DAILY Qty: 90 3RF magnesium oxide 400 mg (241.3 mg magnesium) tablet 400 mg PO DAILY Qty: 90 3RF ascorbate calcium (vitamin C) 500 mg tablet 500 mg PO DAILY Qty: 90 1RF aspirin [Adult Aspirin Regimen] 81 mg tablet,delayed release (DR/EC) 81 mg PO DAILY Qty: 90 3RF ferrous sulfate [FeroSul] 325 mg (65 mg iron) tablet 325 mg PO DAILY Qty: 90 3RF multivitamin with folic acid [Daily-Tin (with folic acid)] 400 mcg tablet 1 tab PO DAILY Qty: 90 3RF atorvastatin 40 mg tablet 40 mg PO QHS Qty: 30 12RF clopidogrel [Plavix] 75 mg tablet 75 mg PO DAILY Qty: 90 3RF (DME) front wheeled walker See Rx Instructions .Route .MEDSUPPLY Qty: 1 0RF Rx Instructions: As directed escitalopram oxalate [Lexapro] 10 mg tablet 10 mg PO DAILY Qty: 90 3RF Ensure Original Liquid See Rx Instructions PO .COMPLEX Qty: 60 5RF Rx Instructions: 1 can twice daily orally; Primary Care Provider: Nilton Mclean Referrals: Halko,Nilton, DO [Primary Care Provider] - Disposition Disposition: Home, Self Care
[2023-05-23 19:49] LABS: Reflex Troponin-HS? (from REC) Y
[2023-05-23 20:07] LABS: Troponin-I HS 7 pg/mL (3.0-78.0)
== END 2023-05-23 20:30 | disposition home or self-care (01) ==
PROVIDERS: Emergency Provider Student in an Organized Health Care Education/Training Program; PCP Student in an Organized Health Care Education/Training Program; Visit Provider Student in an Organized Health Care Education/Training Program
DX: R07.89 Other chest pain (principal); I48.91 Unspecified atrial fibrillation; I48.92 Unspecified atrial flutter; G40.909 Epilepsy, unspecified, not intractable, without status epilepticus; F17.200 Nicotine dependence, unspecified, uncomplicated; Z95.5 Presence of coronary angioplasty implant and graft; I25.10 Atherosclerotic heart disease of native coronary artery without angina pectoris; I10 Essential (primary) hypertension; Z95.1 Presence of aortocoronary bypass graft; Z79.01 Long term (current) use of anticoagulants; Z86.73 Personal history of transient ischemic attack (TIA), and cerebral infarction without residual deficits; E78.00 Pure hypercholesterolemia, unspecified; Z79.82 Long term (current) use of aspirin; Z79.899 Other long term (current) drug therapy; F32.A Depression, unspecified
CPT/HCPCS: 71045; 80048; 83880; 84484; 85025; 93005; 99284; A4216

== ENCOUNTER → 2023-08-18 | Outpatient (CLI) | payer MEDICARE, MEDICAID, SELFPAY | END | disposition home or self-care (01) | LOC: PSN 13:02 | PROVIDERS: PCP Student in an Organized Health Care Education/Training Program; Referring Provider Physician Assistant Medical; Visit Provider Physician Assistant Medical | DX: R55 Syncope and collapse (principal) | CPT/HCPCS: 93225; 93226 ==

== ENCOUNTER → 2024-05-08 | Outpatient (CLI) | payer MEDICARE, MEDICAID, SELFPAY | END | disposition home or self-care (01) | LOC: PSN 12:49 | PROVIDERS: PCP Student in an Organized Health Care Education/Training Program; Referring Provider Nurse Practitioner Family; Visit Provider Nurse Practitioner Family | DX: F17.210 Nicotine dependence, cigarettes, uncomplicated (principal) | CPT/HCPCS: 94060; 94726; 94729 ==

== ENCOUNTER → 2024-05-15 | Outpatient (CLI) | payer MEDICARE, MEDICAID, SELFPAY ==
[2024-05-15 14:00] VITALS: PULSE 60; PULSE 61; PULSE 63; PULSE 65; PULSE 72; PULSE 78; PULSE 79; O2SAT 93; O2SAT 94; O2SAT 95; O2SAT 98; O2SAT 99
--- NOTE | 2024-05-21 12:03 | PCM.PSN.6M ---
PSN 6 Minute Walk Test 6 Minute Walk Test 6 Minute Walk Test: 6 Minute Walk Test PSN:6-Minute Walk Test Start: 05/15/24 13:59 Freq: Status: Active Protocol: RESP.6MINW Document 05/15/24 14:00 KYLEIGH (Rec: 05/15/24 14:03 KYLEIGH [id number]) 6 Minute Walk Test Date Performed 05/15/24 Time Performed 13:45 Height 5 ft 8.5 in Weight: 140 lb Weight in Pounds 140.[address]: [place] Assistive device None used: Pre-test Oxygen Delivery Room Air Method Pulse Ox (%) 99 Pulse Rate (60-100 60 beats/min) Dyspnea Sohail Scale ( 0 0-10) Exertion Sohail Scale 6 (6-20) 1st minute Oxygen Delivery Room Air Method Pulse Ox (%) 94 Pulse Rate (60-100 61 beats/min) 2nd minute Oxygen Delivery Room Air Method Pulse Ox (%) 94 Pulse Rate (60-100 63 beats/min) 3rd minute Oxygen Delivery Room Air Method Pulse Ox (%) 95 Pulse Rate (60-100 72 beats/min) 4th minute Oxygen Delivery Room Air Method Pulse Ox (%) 95 Pulse Rate (60-100 78 beats/min) 5th minute Oxygen Delivery Room Air Method Pulse Ox (%) 93 Pulse Rate (60-100 78 beats/min) 6th minute Oxygen Delivery Room Air Method Pulse Ox (%) 95 Pulse Rate (60-100 79 beats/min) Dyspnea Sohail Scale ( 1 0-10) Exertion Sohail Scale 11 (6-20) Post-test Oxygen Delivery Room Air Method Pulse Ox (%) 98 Pulse Rate (60-100 65 beats/min) Full Laps Walked 20 Partial Lap, Number 17 of Tiles Walked Total Distance 1197 Walked (ft) Interpretation Interpretation: The patient ambulated 1197 feet over the course of 6 minutes beginning on room air without assistive devices. Pretesting oxygen saturation was noted to be 99% on room air. With ambulation, the abel oxygen saturation was 93%. This represents a significant exertional oxygen desaturation, consistent with a pulmonary limitation to exercise tolerance. Recommendations Recommendations: There is no indication for the use of supplemental oxygen at this time. However, close interval follow-up is recommended, given the degree of oxygen desaturation noted during this study.
== END | disposition home or self-care (01) ==
LOC: PSN 13:43
PROVIDERS: PCP Student in an Organized Health Care Education/Training Program; Referring Provider Nurse Practitioner Family; Visit Provider Nurse Practitioner Family
DX: F17.210 Nicotine dependence, cigarettes, uncomplicated (principal)
CPT/HCPCS: 94618

== ENCOUNTER 2024-11-10 00:09 | Emergency (ER) | payer MEDICARE, MEDICAID, SELFPAY ==
[2024-11-10] VITALS (9 sets, daily range): BP systolic 109–130; BP diastolic 60–72; PULSE 52–59; RESP 13–16; TEMP 36.2–36.5; O2SAT 96–99; BMI 20.8
--- NOTE | 2024-11-10 00:29 | CT_ITS ---
PROCEDURE: BRAIN/HEAD WITHOUT CONTRAST 11/10/2024 REASON FOR EXAM: AMS TECHNIQUE: BRAIN/HEAD WITHOUT CONTRAST Coronal and Sagittal reconstruction series were provided. One or more dose reduction techniques were used (e.g., Automated exposure control, adjustment of the mA and/or kV according to patient size, use of iterative reconstruction technique. RADIATION DOSE SUMMARY: CTDlvol: 45 mGy DLP: 830 mGycm COMPARISON: 02/27/2023 FINDINGS: Diffuse atrophy. Old right posterior watershed region infarct. No acute abnormal brain densities. No intracranial hemorrhage. No hydrocephalus or midline shift. No acute scalp or skull pathology. Bilateral lens extraction. Clear sinuses. CT/Brain/Head without Contrast IMPRESSION: No acute intracranial findings Reading Location: [place] [id number]
--- NOTE | 2024-11-10 00:29 | EKG12_ITS ---
Test Reason : DIZZINESS Blood Pressure : */* mmHG Vent. Rate : 56 BPM Atrial Rate : 56 BPM P-R Int : 172 ms QRS Dur : 112 ms QT Int : 486 ms P-R-T Axes : 81 -60 69 degrees QTcB Int : 468 ms Sinus bradycardia Left axis deviation Abnormal ECG Confirmed by CONCETTA WOODWARD, HAL ([id number]), video tape editor JAQUELIN DON ([id number]) on 11/12/2024 1:08:43 PM Referred By: NUZHAT Confirmed By: HAL HYLTON MD
--- NOTE | 2024-11-10 00:33 | EX.ED.DYSGE1 ---
HPI History of Present Illness Chief Complaint: Dizziness Narrative Narrative: Patient is a 69-year-old male with past medical history of iron deficiency anemia, GERD, small cell B lymphoma, alcohol use, hypercholesteremia, migraine headache, Parkinson's disease, hypertension, seizure, hyperlipidemia, CVA who presented to the emergency department with a chief complaint of almost passing out. Patient apparently according to EMS notes that he went to the bathroom stood up and became dizzy patient states that this happened before and he states that he is unsure when his symptoms started. Per EMS the patient was at his baseline. [facility] Medical History Small lymphocytic lymphoma Prediabetes Lung nodules Iron deficiency Insomnia Folic acid deficiency Costochondritis Cognitive impairment Cachexia GERD (gastroesophageal reflux disease) Small cell B-cell lymphoma Wears dentures Wears glasses Depression Alcohol use High cholesterol Excessive bleeding Migraine headache Injury of head and neck Parkinson's disease Tremor Gastric reflux Smoker Normal stress echocardiogram History of echocardiogram Hypertension Cardiology follow-up encounter History of heart attack Scalp wound Scalp pain Complex laceration of scalp Fall from ladder Postoperative atrial fibrillation History of left heart catheterization (LHC) (~05/27/21) Heart valve problem Syncope and collapse Seizure Hyperlipidemia Atherosclerotic heart disease of [place] coronary artery without angina pectoris Chronic back pain Atrial septal aneurysm Abnormal electrocardiogram CVA (cerebral vascular accident) Nicotine dependence Home Medications ?Medication ?Instructions ?Recorded ?Last Taken ?Type acetaminophen 500 mg capsule 1,000 mg (2 x 500 mg) PO Q6H PRN 02/24/22 Unknown Rx pain #120 caps folic acid 1 mg tablet 1 mg PO DAILY supplement #90 tabs 03/30/22 Unknown Rx magnesium oxide 400 mg (241.3 mg 400 mg PO DAILY supplement #90 tabs 03/30/22 Unknown Rx magnesium) tablet ascorbate calcium (vitamin C) 500 500 mg PO DAILY vitamin #90 tabs 06/16/22 Unknown Rx mg tablet aspirin 81 mg tablet,delayed 81 mg PO DAILY heart health #90 06/16/22 12/17/22 Rx release (Adult Aspirin Regimen) tabs ferrous sulfate 325 mg (65 mg 325 mg PO DAILY supplement #90 tabs 06/16/22 Unknown Rx iron) tablet (FeroSul) multivitamin with folic acid 400 1 tab PO DAILY vitamin #90 tabs 06/16/22 Unknown Rx mcg tablet (Daily-Tin (with folic acid)) lamotrigine 100 mg tablet 100 mg PO BID seizures #60 tabs 09/09/22 Unknown Rx front wheeled walker #1 ea 11/26/22 Unknown Rx escitalopram oxalate 10 mg tablet 10 mg PO DAILY #90 tabs 12/15/22 Unknown Rx (Lexapro) thiamine HCl (vitamin B1) 100 mg 100 mg PO BID supplement 12/22/22 Unknown History tablet atorvastatin 80 mg tablet 80 mg PO QDAY 07/28/23 Unknown History metoprolol succinate 25 mg 12.5 mg PO QDAY 07/28/23 Unknown History tablet,extended release 24 hr epinephrine 0.3 mg/0.3 mL 0.3 mg IM ONCE 03/12/24 Unknown History injection, auto-injector (EpiPen 2-Sebastian) mirtazapine 30 mg tablet 30 mg PO QDAY 03/12/24 Unknown History pantoprazole 40 mg tablet,delayed 40 mg PO QDAY 03/12/24 Unknown History release sennosides 8.6 mg tablet (senna) 8.6 mg PO QDAY 03/12/24 Unknown History levetiracetam 500 mg tablet 500 mg PO BID 03/13/24 Unknown History pramipexole 0.125 mg tablet 0.125 mg PO TID 03/13/24 Unknown History primidone 50 mg tablet 50 mg PO Q8H 04/05/24 Unknown History nitroglycerin 0.4 mg sublingual 0.4 mg sublingual Q5-15M PRN chest 04/10/24 Unknown Rx tablet (Nitrostat) pain #25 tabs budesonide 160 mcg-glycopyr 9 2 inh inhalation BID #10.7 grams 07/18/24 Unknown Rx mcg-formot 4.8 mcg/actuation HFA inhaler (Breztri Aerosphere) Allergy/AdvReac Type Severity Reaction Status Date / Time bee venom protein (honey bee) Allergy Severe Anaphylaxis Verified 10/18/24 13:34 tuberculin, purified protein Allergy Severe Swelling Verified 10/18/24 13:34 deriva Family History Mother Myocardial infarction Cancer Diabetes COPD (chronic obstructive pulmonary disease) Brother Myocardial infarction Cancer Diabetes Sister Cancer Diabetes Heart disease Father Lung cancer Surgical History History of cardiac catheterization Hx of neck surgery History of coronary artery bypass surgery (~09/21/21) S/P triple vessel bypass Stented coronary artery (10/06/17) History of lumbar puncture (~04/2017) finger surgery lymph node resection Social History household members: family Smoking Status: Heavy Smoker (>10/day) Tobacco: How many years used: 61 Electronic Cigarette Use: not used second hand exposure: Yes alcohol intake: former year quit: 2014 details: Patient reduced his alcohol intake when 'his lady passed in 2014' substance use type: does not use caffeine: Yes Type: carbonated beverages and coffee ROS ROS ED ROS Narrative Constitutional: Denies any headache, lightness, fever, chills Eyes: Denies change in vision double vision blurry vision Cardiovascular: Denies chest pain or palpitations Respiratory: Denies coughing wheezing shortness of breath Abdomen: Denies nausea vomit diarrhea : Denies any urinary symptoms Neurological: Denies any numbness, weakness, tingling Musculoskeletal: Denies any back pain Skin: Denies any rashes or lesions EXAM Physical Exam Narrative Exam Narrative: General: Patient was lying in bed rest comfortably did not appear to be in acute distress Head: Atraumatic, normocephalic Eyes: PERRL bilaterally, EOMI bilaterally, no conjunctival injection noted Neck: Soft, supple, trachea midline Cardiovascular: Patient is bradycardic Respiratory: Clear to auscultation bilaterally Abdomen: Soft, nondistended, nontender to palpation Extremities: Patient moving all extremities on exam Neurological: Patient follow commands knew that he was at the hospital was confused on the year Skin: Warm, dry, intact no rashes lesions noted Const Vital Signs: 11/10/24 00:11 11/10/24 00:29 11/10/24 01:14 Temperature 97.7 F L Temperature Source Oral Pulse Rate 56 L 57 L Respiratory Rate 15 16 Blood Pressure 130/72 H Blood Pressure Mean 91 Pulse Ox 96 96 99 Oxygen Delivery Method Room Air Room Air 11/10/24 01:15 11/10/24 01:31 11/10/24 01:45 Temperature Temperature Source Pulse Rate 59 L 53 L 52 L Respiratory Rate 16 15 13 Blood Pressure Blood Pressure Mean Pulse Ox 99 99 99 Oxygen Delivery Method 11/10/24 02:00 Temperature Temperature Source Pulse Rate 54 L Respiratory Rate 14 Blood Pressure Blood Pressure Mean Pulse Ox 99 Oxygen Delivery Method MDM MDM MDM Narrative Medical decision making narrative: Patient is a 69-year-old male who presented to the emergency department the chief complaint of going to the bathroom standing up and having a near syncopal episode. On the differential diagnosis includes but not limited to dehydration, orthostatic hypotension, ACS, pneumothorax, generalized weakness, alcohol abuse. Once workup is obtained reviewed he will be reevaluated. Patient be given IV fluids. Patient's CBC reviewed and showed a white blood count of 16,000 he has chronically elevated white blood cell count according to previous blood draws, hemoglobin stable 13.2, platelet count normal at 217. Patient's INR normal at 1.1, PT 14.7. Patient sodium was normal at 141, potassium normal 3.7, creatinine was 0.94. Patient's troponin was 9 with a delta troponin of 9, EKG showed sinus bradycardia with a rate of 56 bpm with a NH interval that is normal at 172. Patient's urinalysis pending however he wants to go home and he does not have any urinary symptoms at this point in time . Patient's CT head and brain without contrast was reviewed which showed no acute intracranial findings. Patient chest x-ray reviewed by myself by radiology showed no acute cardiopulmonary processes. On reevaluation the patient he will to go home and he states that he feels much better. He ambulated well here in the emergency department without any difficulty no hypoxia no tachycardia. Discussed the results with the patient and family members at bedside they are agreeable with this plan. He is advised to follow-up with his doctor in the outpatient setting return with worsening symptoms or any concerns. All question concerns answered he is discharged home in stable condition Lab Data Labs: Laboratory Results - last 24 hr 11/10/24 11/10/24 11/10/24 00:26 01:35 02:40 WBC 16.6 H RBC 3.81 L Hgb 13.2 Hct 38.9 L MCV 102.1 H MCH 34.6 H MCHC 33.9 RDW Std Deviation 49.1 H RDW Coeff of Verito 13.0 Plt Count 217 MPV 9.9 Immature Gran % (Auto) 0.200 Neut % (Auto) 20.7 L Lymph % (Auto) 59.7 H Yuba % (Auto) 12.4 H Eos % (Auto) 6.9 H Baso % (Auto) 0.1 Absolute Neuts (auto) 3.4 Absolute Lymphs (auto) 9.90 H Nucleated RBC % 0 Differential Comment SCANNED Diff Path Review August foll PT 14.7 INR 1.1 APTT 22.6 L Sodium Cancelled 141 Potassium Cancelled 3.7 Chloride Cancelled 105 Carbon Dioxide Cancelled 26.2 Anion Gap Cancelled 10 BUN Cancelled 18 Creatinine Cancelled 0.94 Estim Creat Clear Calc 61.35 65.26 Est GFR (MDRD) Non-Af Cancelled 87 BUN/Creatinine Ratio Cancelled 18.5 Glucose Cancelled 80 Calcium Cancelled 8.6 Troponin T High Sens 9 Troponin T Hi Sens 2 Hr 9 Radiography Diagnostic Testing: Clinical Impression(s) from Imaging Studies Brain CT 11/10/24 00:29 IMPRESSION: No acute intracranial findings Reading Location: [place] [address] Chest X-Ray 11/10/24 01:24 IMPRESSION: No acute findings Reading Location: [place] [address] Discharge Plan Triage Chief Complaint: Dizziness ED Provider: Arben Orourke Dx/Rx/DC Orders Clinical Impression: Near syncope, History of seizure, Hypertension, History of CVA (cerebrovascular accident) Prescriptions: No Action lamotrigine 100 mg tablet 100 mg PO BID Qty: 60 5RF primidone 50 mg tablet 50 mg PO Q8H Rx Instructions: 50mg twice daily and 75 mg at bedtime metoprolol succinate 25 mg tablet extended release 24 hr 12.5 mg PO QDAY atorvastatin 80 mg tablet 80 mg PO QDAY nitroglycerin [Nitrostat] 0.4 mg tablet, sublingual 0.4 mg sublingual Q5-15M PRN (Reason: chest pain) Qty: 25 3RF Rx Instructions: do not exceed 3 doses per episode levetiracetam 500 mg tablet 500 mg PO BID pramipexole 0.125 mg tablet 0.125 mg PO TID epinephrine [EpiPen 2-Sebastian] 0.3 mg/0.3 mL auto-injector 0.3 mg IM ONCE Rx Instructions: as a single dose; may repeat once mirtazapine 30 mg tablet 30 mg PO QDAY pantoprazole 40 mg tablet,delayed release (DR/EC) 40 mg PO QDAY sennosides [senna] 8.6 mg tablet 8.6 mg PO QDAY Breztri Aerosphere 160-9-4.8 mcg/actuation HFA aerosol inhaler 2 inh inhalation BID Qty: 10.7 11RF thiamine HCl (vitamin B1) 100 mg tablet 100 mg PO BID acetaminophen 500 mg capsule 1,000 mg PO Q6H PRN (Reason: pain) Qty: 120 1RF Rx Instructions: 14 day #28 folic acid 1 mg tablet 1 mg PO DAILY Qty: 90 3RF magnesium oxide 400 mg (241.3 mg magnesium) tablet 400 mg PO DAILY Qty: 90 3RF ascorbate calcium (vitamin C) 500 mg tablet 500 mg PO DAILY Qty: 90 1RF aspirin [Adult Aspirin Regimen] 81 mg tablet,delayed release (DR/EC) 81 mg PO DAILY Qty: 90 3RF ferrous sulfate [FeroSul] 325 mg (65 mg iron) tablet 325 mg PO DAILY Qty: 90 3RF multivitamin with folic acid [Daily-Tin (with folic acid)] 400 mcg tablet 1 tab PO DAILY Qty: 90 3RF (DME) front wheeled walker See Rx Instructions .Route .MEDSUPPLY Qty: 1 0RF Rx Instructions: As directed escitalopram oxalate [Lexapro] 10 mg tablet 10 mg PO DAILY Qty: 90 3RF Primary Care Provider: Nilton Mclean Referrals: Nilton Mclean DO [Primary Care Provider] - Activity Restrictions/Additional Instructions: Follow-up with your doctor in the outpatient setting. Return with worsening symptoms or any concerns. Your blood work, chest x-ray, EKG and CT of your head did not show any acute findings. Ensure you are drinking plenty of water. Print Language: Danish Disposition Disposition: Home, Self Care
[2024-11-10 00:42] LABS: Hematocrit 38.9 % (40-54); Hemoglobin 13.2 g/dL (13.0-16.5); Immature Granulocytes Count 0.040 X10^3/uL (0.0-0.0); Mean Corp Hgb Conc 33.9 g/dL (32-36); Mean Corpuscular Volume 102.1 fL (80-94); Mean Platelet Vol. 9.9 fl (6.2-12.0); NRBC Flagged by Analyzer 0 % (0-5); POSITIVE DIFFERENTIAL YES; POSITIVE MORPHOLOGY YES; Platelet Count 217 K/mm3 (150-450); RBC Distribution Width CV 13.0 % (11.6-14.6); RBC Distribution Width SD 49.1 fl (35.1-43.9); Red Blood Count 3.81 M/mm3 (4.6-6.2); White Blood Count 16.6 K/mm3 (4.4-11.0)
[2024-11-10 00:43] LABS: Differential Indicated SCAN CRITERIA MET
[2024-11-10 00:51] LABS: Prothrombin Time (Protime)PT. 14.7 SECONDS (11.7-14.9)
[2024-11-10] MEDS: 0.9% Normal Saline (1000mL) 1,000 ML 999 ML IV (00:51)
[2024-11-10 00:52] LABS: Partial Thromboplast Time 22.6 Seconds (24.1-36.2)
[2024-11-10 01:06] LABS: Troponin T High Sensitivity 9 ng/L (<=22)
--- NOTE | 2024-11-10 01:24 | RAD_ITS ---
PROCEDURE: CHEST PA AND LATERAL 11/10/2024 REASON FOR EXAM: CHEST PAIN TECHNIQUE: CHEST PA AND LATERAL COMPARISON: 05/23/2023 FINDINGS: Normal heart size. Status post CABG. Status post coronary stenting. Surgical clips right axilla. Well inflated lungs. Mild emphysema and smoking-related interstitial lung disease. No consolidation, effusion, or pneumothorax. RAD/Chest PA and Lateral IMPRESSION: No acute findings [facility]
--- OUTSIDE RECORDS SUMMARY | 2024-11-10 01:46 | XMS RPT_ITS | CCD ---
Author Organization [facility] Care Team Providers Care Plastic Dolls Mold Filler Name Role Phone JIE, JOE A Unavailable Unavailable JIE, JOE A Unavailable Unavailable JIE, JOE A Unavailable Unavailable UNKNOWN, PCP Unavailable Unavailable UNKNOWN, PCP Unavailable Unavailable Brad, Titi Shantaram Unavailable Unavai lable UNKNOWN, PCP Unavailable Unavailable UNKNOWN, PCP Unavailable Unavailable BLDANNY JOSH L Unavailable Unavailable UNKNOWN, PCP Unavailable Unavailable UNKNOWN, PCP Unavailable Unavailable NO FAMILY DOCTOR, NO FAMILY DOCTOR Unavailable Unavailable ANA FULLER Unavailable Unavailable Clement Swanson MD Primary Care Provider Sophia Madison (Deysi) Unavailable Betty Parker CNP Unavailable Care Physician, No Primary Primary Care Provider Unavailable Care Physician, No Primary Referring Provider Un available DEYSI Brantley Attending Provider Keith CABLE REELER, PRESLEY-Johanny Hernández Attending Provider Dr. Alfonso Jain Referring Provider DEYSI Brantley Referring Provider DEYSI Brantley Other Provider Dr. Zaki Morin Attending Provider Clement Swanson MD Primary Care Provider Keith BRAGG Christen A Unavailable Tami Luna PA-C Unavailable Tami Luna PA-C Unavailable Sudheer Willis RN Unavailable Care Physician, No Primary Primary Care Provider Unavailable Dr. Dillon Gooden Attending Provider Dr. Clement Walls Referring Provider Keith CABLE REELER, CABLE REELER-C Betty Attending Provider Dr. Alfonso Jain Referring Provider Care Physician, No Primary Referring Provider Un available Los JO PA Sophia Franz Attending Provider Dr. Radha Quintero Attending Provider [phone] Dr. Radha Quintero Primary Care Provider Sophia Madison (Pa) Unavailable Cathi CONTESTANT COORDINATOR.ODALIS, Linda A Unavailable Radha Quintero MD Unavailable Radha Quintero MD Primary Care Provider Sophia Madison (Pa) Unavailable Keith CONTESTANT COORDINATOR.Betyt JACOBO A Unavailable Tami Luna PA-C Unavailable Sophia Madison (Pa) Unavailable Cathi CONTESTANT COORDINATOR.ODALIS, Linda A Unavailable Radha Quintero MD Unavailable Radha Quintero MD Primary Care Provider Care Physician, No Primary Primary Care Provider Unavailable Care Physician, No Primary Primary Care Provider Unavailable Care Physician, No Primary Referring Provider Un available Los JO PA Sophia Franz Attending Provider Dr. Alfonso Jain Attending Provider Dr. Radha Quintero Referring Provider Care Physician, No Primary Referring Provider Un available Dr. Radha Quintero Attending Provider Rafi CABLE REELER, CABLE REELER-C Tahir Ramsey Attending Provider Dr. Zaki Morin Attending Provider [phone] PARISH SADLER Attending Unavailable PARISH SADLER Referring [facility] Care Physician, No Primary Referring Provider Un available DEYSI Brantley Attending Provider Dr. Radha Quintero Primary Care Provider Dr. Alfonso Jain Attending Provider Dr. Radha Quintero Referring Provider [phone] Dr. Radha Quintero Attending Provider [phone] Rafi CABLE REELER, CABLE REELER-Johanny Ramsey Attending Provider Dr. Zaki Morin Attending Provider [phone] Dr. Radha Quintero Primary Care Provider DEYSI Brantley Attending Provider Dr. Johnna Escamilla Attending Provider Dr. Radha Quintero Primary Care Provider Dr. Radha Quintero Referring Provider [phone] Dr. Alfonso Jain Attending Provider [phone] Radha Quintero Attending Provider [phone] RADHA QUINTERO MD Primary Care Physician [phone] Dr. Radha Quintero Primary Care Provider Dr. Radha Quintero Attending Provider Dr. Radha Quintero Referring Provider Dr. Alonso Hylton Attending Provider DEYSI Brantley Attending Provider Brad CABLE REELER, CABLE REELER-Johanny Hanson Attending Provider Dr. Alfonso Jain Attending Provider Dr. Anand Colvin Emergency Provider Dr. Gregorio Bingham Admit Provider Dr. Gregorio Bingham Other Provider Dr. Jonel Godinez Attending Provider Dr. Jonel Godinez Other Provider Dr. Brennan Styles Emergency Provider Dr. Zaki Vigil Attending Provider Yaritza, Dr. Haines Admit Provider Yaritza, Dr. Haines Other Provider Dr. Elvi Layton Attending Provider Dr. Elvi Layton Other Provider Dr. Radha Quintero Primary Care Provider Dr. Radha Quintero Referring Provider Dr. Alonso Hylton Attending Provider Los PA, PA Sophia Franz Attending Provider Brad CABLE REELER, CABLE REELER-C Claire Hanson Attending Provider Dr. Alfonso Jain Attending Provider Dr. Anand Colvin Emergency Provider Dr. Gregorio Binghamit Provider Dr. Gregorio Bingham Other Provider Dr. Jonel Godinez Attending Provider Dr. Jonel Godinez Other Provider Dr. Brennan Styles Emergency Provider Yaritza, Dr. Haines Attending Provider Yaritza, Dr. Haines Admit Provider Yaritza, Dr. Haines Other Provider Dr. Elvi Layton Attending Provider Dr. Elvi Layton Other Provider Dr. Radha Quintero Attending Provider [phone] Alex Mejia Attending Provider Dr. Alex Mejia Other Provider WILLIAMQI DO, PARISH Primary Care Physician [phone] Dr. Radha Quintero Primary Care Provider Dr. Brennan Styles Emergency Provider Dr. Zaki Vigil Attending Provider Dr. Zaki Vigil Admit Provider Dr. Zaki Vigil Other Provider Dr. Elvi Layton Attending Provider Dr. Elvi Layton Other Provider Dr. Radha Quintero Attending Provider [phone] Dr. Radha Quintero Referring Provider [phone] Dr. Alex Mejia Attending Provider [phone] Alex Mejia Referring Provider Dr. Alex Mejia Other Provider Dr. Stacy Germain Referring Provider Ronny CABLE REELER, CABLE REELER-C Tina Attending Provider [phone] HALKO DO, PARISH Attending Unavailable HALKO DO, PARISH Primary Care Unavailable HALKO DO, PARISH Attending Unavailable HALKO DO, PARISH Primary Care Unavailable HALKO DO, PARISH Attending Unavailable HALKO DO, PARISH Primary Care Unavailable INGRID WOODWARD, RADHA Primary Care Unavailable INGRID WOODWARD, RADHA Attending Unavailable INGRID WOODWARD, RADHA Primary Care Unavailable INGRID WOODWARD, RADHA Attending Unavailable CRYSTAL WOODWARD, SANTA Rivera Attending Unavailable INGRID WOODWARD, RADHA Primary Care Unavailable MADHU DENNIS MD Admitting Unavailable MARYAM STAFFORD MD Attending Unavailable CRYSTAL WOODWARD, SANTA Rivera Consulting Unavailable INGRID WOODWARD, RADHA Primary Care Unavailable MARY WOODWARD, SHAKIRA Consulting Unavailable KRYSTLE WOODWARD, CLEMENT Consulting Unavailable DARIEN WOODWARD, BRIANNA ORDONEZ Consulting U navailable HALKO DO, PARISH Attending Unavailable HALKO DO, PARISH Primary Care Unavailable HALKO DO, PARISH Primary Care Unavailable HALKO DO, PARISH Attending Unavailable HALKO DO, PARISH Attending Unavailable HALKO DO, PARISH Primary Care Unavailable HALKO DO, PARISH Primary Care Unavailable HALKO DO, PARISH Attending Unavailable GARY KRUSE DO Attending Unavailable INGRID WOODWARD, RADHA Primary Care Unavailable HALKO DO, PARISH Primary Care Unavailable BILLY WOODWARD, CHAPINCITO Hanson Attending Unavail able HALKO DO, PARISH Attending Unavailable HALKO DO, PARISH Primary Care Unavailable INGRID WOODWARD, RADHA Primary Care Unavailable Dr. Radha Quintero Referring Provider Ronny CABLE REELER, CABLE REELER-C Tina Attending Provider Dr. Parish Graff Primary Care Provider Ingrid WOODWARD, Radha Primary Care Provider LETY WHITTINGTON Attending Unavailable RADHA QUINTERO Referring Unavailable NILESH OLIVAS Attending Unavailable HALKO DO, PARISH Attending Unavailable HALKO DO, PARSIH Primary Care Unavailable Halqi MONTERROSO, Dr. Callaway Primary Care Provider Prerna MONTERROSO, Dr. Callaway Referring Provider Sathya CABLE REELER-CAide Attending Provider Dr. Rita Mathew MD Attending Provider Dr. Rita Mathew MD Referring Provider Marine CABLE REELER-CSanta Attending Provider Rosalio Ashley Attending Provider Dr. Rita Mathew MD Attending Provider Dr. Rita Mathew MD Referring Provider Camelia Corral Attending Unavailable Halko, Parish Primary Care Unavailable Halko, Parish Primary Care Unavailable Rita Mathew Referring Unavailable Rita Mathew Attending Unavailable Halko, Parish Primary Care Unavailable Santa Hawthorne Attending Unavailable Santa Hawthorne Referring Unavailable Halko, Parish Primary Care Unavailable Santa Hawthorne Attending Unavailable Santa Hawthorne Referring Unavailable Halko, Parish Primary Care Unavailable Santa Hawthorne Referring Unavailable Santa Hawthorne Attending Unavailable Sathya, Aide Attending Unavailable Halko, Parish Referring Unavailable Halko, Parish Primary Care Unavailable Halko, Parish Referring Unavailable Halko, Parish Primary Care Unavailable Yomairakarus, Mansour Attending Unavailable Halko, Parish Referring Unavailable Santa Hawthorne Attending Unavailable Halko, Parish Primary Care Unavailable Halko, Parish Primary Care Unavailable Halko, Parish Referring Unavailable Sophia Brantley Attending Unavail able Halko, Parish Primary Care Unavailable Halko, Parish Referring Unavailable Isckarus, Mansour Attending Unavailable Halko, Parish Primary Care Unavailable Halko, Parish Referring Unavailable Aide Mcdonnell Attending Unavailable Halko, Parish Primary Care Unavailable Halko, Parish Referring Unavailable Santa Hawthorne Attending Unavailable Halko, Parish Primary Care Unavailable Halko, Parish Referring Unavailable Santa Hawthorne Attending Unavailable Alex Mejia Attending Unavailable Halko, Parish Primary Care Unavailable Santa Hawthorne Consulting Unavailable Santa Hawthorne Referring Unavailable Alex Mejia Attending Unavailable Rosalio Horta Attending Unavailable Halko, Parish Primary Care Unavailable Halko, Parish Referring Unavailable JOHN MATUTE MD Attending Unavailable HALKO DO, PARISH Primary Care Unavailable JOHN MATUTE MD Consulting Unavailable HALKO DO, PARISH Attending Unavailable HALKO DO, PARISH Primary Care Unavailable HALKO DO, PARISH Attending Unavailable HALKO DO, PARISH Primary Care Unavailable HALKO DO, PARISH Attending Unavailable HALKO DO, PARISH Primary Care Unavailable HALKO DO, PARISH Attending Unavailable HALKO DO, PARISH Primary Care Unavailable HALKO DO, PARISH Primary Care Unavailable HALKO DO, PARISH Attending Unavailable HALKO DO, PARISH Attending Unavailable HALKO DO, PARISH Primary Care Unavailable OWOC DO, DR FRANK Sheldon Attending Unavailabl e HALKO DO, PARISH Primary Care Unavailable DALILAESGARY BOND DO Attending Unavailable HALKO DO, PARISH Primary Care Unavailable JOHN MATUTE MD Attending Unavailable HALKO DO, PARISH Primary Care Unavailable Allergies Allergy Classification Reported Allergen(s) Allergy Type Date of Onset Reaction(s) Facility (20 sources) Purified Protein Derivative of Tuberculin; Translations: [tuberculin purified protein derivative] Drug Allergy 2 Swelling, Unknown (qualifier value) [facility] (20 sources) Venom-Honey Bee Drug Allergy 2 Swelling [facility] (4 sources) bumble bee stings Allergy to substance 2 Anaphylaxis [facility] Work Phone: (15 sources) Bee/Wasp/Ant venom Drug allergy Swelling (morphologic abnormality), Unknown (qualifier value) [facility] (6 sources) Honey bee venom Allergy to substance 2 Swelling [facility] (6 sources) Tuberculin, Ppd Allergy to substance 2 Swelling [facility] (1 source) tuberculin, purified protein deriva Drug allergy (disorder) 5 [facility] (1 source) bee venom protein (honey bee) Drug allergy (disorder) 5 [facility] Medications Current Medications Medication Drug Class(es) Dates Sig (Normalized) Sig (Original) acetaminophen 500 mg oral capsule (20 sources) Start: 09-13-2022 acetaminophen 500 mg oral capsule Dose : 1,000 mg = 2 cap(s), Oral, q4h, PRN for fever, # 120 cap(s), 0 Refill(s) Start Date: 09/13/22 Status: Ordered Quantity: 120.0 Unit: cap(s) Repeat number: 1 Start: 10-21-2021 End: 02-24-2022 take 2 capsules by mouth every six hours as needed for pain Acetaminophen 500 mg capsule Discontinued 1000 mg PO EVERY 6 HOURS as needed for pain 120 1 January 11, 2022 12:16pm February 24, 2022 10:02am 14 day #28 Start: 10-07-2021 End: 10-21-2021 take 1 capsule by mouth every six hours as needed Acetaminophen 500 mg capsule Discontinued 500 mg PO EVERY 6 HOURS as needed October 07, 2021 12:00am October 21, 2021 11:32am Start: 10-07-2021 End: 02-24-2022 take 1000 mg by mouth every six hours Acetaminophen Discontinued 1000 MG PO EVERY 6 HOURS 120 January 11, 2022 11:16am February 24, 2022 9:02am 14 day #28 Start: 09-28-2021 End: 10-12-2021 take 2 tablets by mouth four times daily acetaminophen (TYLENOL) 500 mg tablet Take 2 tablets by mouth four times daily for 14 days. 112 tablet 0 09/28/2021 10/12/2021 Active Start: 09-11-2021 End: 09-11-2021 take 2 tablets by mouth once acetaminophen (TYLENOL EX TRA STRENGTH) 500 mg tablet Take 2 tablets by mouth one time only for 1 dose. Take morning of surgery. 2 tablet 0 09/11/2021 09/11/2021 Start: 07-24-2021 End: 07-24-2021 take 2 tablets by mouth once acetaminophen (TYLENOL EX TRA STRENGTH) 500 mg tablet Take 2 tablets by mouth one time only for 1 dose. Take morning of surgery. 2 tablet 0 07/24/2021 07/24/2021 Active take 2 tablets by mo uth every six hours as needed acetaminophen (Tylenol) 500 MG tablet Take 1,000 mg by mouth every 6 (six) hours if needed. Active acetaminophen (T YLENOL ORAL) Take 1,000 mg by mouth. Once the morning of surgery 09-21-21 0 Suspended Comment on above: Take 2 tablets by mo uth one time only for 1 dose. Take morning of surgery. Take 1,000 mg by clive th. Once the morning of surgery 09-21-21 Take 2 tablets by mo uth four times daily for 14 days. acetaminophen 325 mg / HYDROcodone bitartrate 5 mg oral tablet (20 sources) Opioid Agonist Start: 02-27-2024 End: 03-01-2024 [place] 325- 5 mg oral tablet Dose = 1 tab(s), Oral, q4h, PRN Pain, scale 1-6, X 3 day(s), # 7 tab(s), 0 Refill(s), Pharmacy: [facility], Acute post-operative pain, 173, cm, 02/27/24 9:05:00 EST, Height, 173, kg, 02/27/24 9:05:00 EST, Dosing Weight Start Date: 02/27/24 Stop Date: 03/01/24 Status: Ordered Start: 04-07-2023 take 1 tablet by clive th every six hours as needed HYDROcodone-acetaminophen ([place]) 5-325 MG tablet Take 1 tablet by mouth every 6 (six) hours if needed 04/07/2023 Active Start: 04-07-2023 End: 05-07-2023 take 1 tablet by mouth once daily at bedtime as needed for pain [place] 325- 5 mg oral tablet Dose = 1 tab(s), Oral, qHS, PRN for pain, fill on or after 04/07/2023, X 30 day(s), # 30 tab(s), 0 Refill(s), Pharmacy: [facility], [place], 172.7, cm, 04/07/23 10:41:00 EST, Height, 65.6, kg, 04/07/23 10:41:00 EST, Dosing Weight Start Date: 04/07/23 Stop Date: 05/07/23 Status: Ordered Start: 09-06-2022 take 1 tablet by clive th every six hours as needed Hydrocodone-Acetaminophen Active 1 TABLE T PO EVERY 6 HOURS NEEDED 12 September 06, 2022 Start: 02-05-2022 take 1 tablet by clive th every six hours Hydrocodone-Acetaminophen Active 1 TABLE T PO EVERY 6 HOURS 10 February 05, 2022 Start: 07-04-2021 End: 09-09-2021 Hydrocodone-Acetaminophen 5- 325 mg tablet Discontinued 1 {tbl} PO EVERY 6 HOURS as needed for pain 10 3 July 04, 2021 September 09, 2021 8:56am Contusion of back Contusion of unspecified back wall of thorax, initial encounter Start: 07-04-2021 End: 09-09-2021 take 1 tablet by mouth every six hours Hydrocodone-Acetaminophen Discontinued 1 TABLET PO EVERY 6 HOURS 10 July 04, 2021 September 09, 2021 7:56am Start: 07-04-2021 End: 09-09-2021 albuterol MDI (90 mcg/inh) CFC free inhalation aerosol (1 source) Start: 10-04-2024 End: 11-03-2024 take 2 puff(s) by inhalation every four hours albuterol MDI (90 mcg/inh) CFC free inhalation aerosol 2 puff(s), Inhalation, q4h, # 18 gram(s), 0 Refill(s), Pharmacy: [facility], 175.5, cm, 10/04/24 9:29:00 EDT, Height, kg, 10/04/24 9:29:00 EDT, Dosing Weight Start Date: 10/04/24 Stop Date: 11/03/24 Status: Ordered Quantity: 18.0 Unit: g Repeat number: 1 Alcohol Swabs (12 sources) Start: 03-04-2023 Alcohol Swabs See Instructions, dispense 200 EtOH wipes; check blood sugar twice daily (fasting and before bed), 3 refills, dx E16.2, # 200 EA, 3 Refill(s), Pharmacy: [facility], Hypoglycemia, 176.5, cm, 03/04/23 8:32:00 EST, Height, 67.4, kg, 03/04/23 8:32:00 EST, Dosing Weight Start Date: 03/04/23 Status: Ordered Quantity: 200.0 Unit: EA Repeat number: 4 Indications: Hypoglycemia, unspecified; Start: 03-04-2023 Alcohol Swabs See Instructions, dispense 200 EtOH wipes; check blood sugar twice daily (fasting and before bed), 3 refills, dx E16.2, # 200 EA, 3 Refill(s), Pharmacy: [facility], Hypoglycemia, 176.5, cm, 03/04/23 8:32:00 EST, Height, 67.4, kg, 03/04/23 8:32:00 EST, Dosing Weight Start Date: 03/04/23 Status: Ordered Quantity: 200.0 Unit: EA Repeat number: 4 Indication: Hypoglycemia, unspecified Start: 03-04-2023 Alcohol Swabs See Instructions, dispense 200 EtOH wipes; check blood sugar twice daily (fasting and before bed), 3 refills, dx E16.2, # 200 EA, 3 Refill(s), Pharmacy: [id number], Hypoglycemia, 176.5, cm, 03/04/23 8:32:00 EST, Height, 67.4, kg, 03/04/23 8:32:00 EST, Dosing Weight Start Date: 03/04/23 Status: Ordered ascorbic acid 500 mg chewable tablet (20 sources) Vitamin C Start: 08-04-2022 take 1 tablet by mouth in the morning ascorbic acid (Vitamin C) 500 MG tablet Take 500 mg by mouth in the morning. 08/04/2022 Active Start: 09-29-2021 End: 10-29-2021 take 1 tablet by mouth once daily ascorbic acid, vitamin C, (VITAMIN C) 500 mg tablet Take 1 tablet by mouth once daily. 30 tablet 0 09/29/2021 Active Comment on above: Take 1 tablet by clive th once daily. atorvastatin 80 mg oral tablet (20 sources) HMG-CoA Reductase Inhibitor Start: take 1 tablet by mouth once daily Atorvastatin 80 mg tablet Active 80 mg PO daily July 28, 2023 12:00am Start: 02-10-2023 atorvastatin 8 0 mg oral tablet Dose : 80 mg = 1 tab(s), Oral, qDay, increased therapy, # 90 tab(s), 1 Refill(s), Pharmacy: [facility], 176.5, cm, 02/10/23 9:21:00 EST, Height, kg, 02/10/23 9:21:00 EST, Dosing Weight Start Date: 02/10/23 Status: Ordered Start: 05-27-2021 End: 07-28-2023 take 1 tablet by mouth at bedtime Atorvastatin 40 mg tablet Discontinued 40 mg PO AT BEDTIME 30 August 10, 2022 5:08pm July 28, 2023 2:40pm cholesterol Start: 08-01-2017 End: 09-26-2019 take 1 tablet by mouth at bedtime Atorvastatin 40 mg tablet Discontinued 40 mg PO AT BEDTIME 90 August 21, 2018 1:45pm September 26, 2019 2:13pm cholesterol pt states he is not currently taking Comment on above: Take 40 mg by mouth once daily. azithromycin 250 mg oral tablet (1 source) Macrolide Antimicrobial Start: 10-05-19 End: 10-10-19 azithromycin 250 mg oral tablet Dose : 250 mg = 1 tab(s), Oral, qDay, 2 tabs on day one, then one tab daily, X 5 day(s), # 6 tab(s), 0 Refill(s), 10/09/24 10:01:00 AM EDT, Pharmacy: [facility], 175.5, cm, 10/04/24 9:29:00 EDT, Height, 61.3, kg, 10/04/24 9:29:00 EDT, Dosing Weight Start Date: 10/04/24 Stop Date: 10/09/24 Status: Ordered Quantity: 6.0 Unit: tab(s) Repeat number: 1 B 100 Complex oral tablet (14 sources) Start: 07-06-19 End: 01-02-20 take 1 tablet by mouth once daily B 100 Complex oral tablet Dose = 1 tab(s), Oral, Daily, # 90 tab(s), 1 Refill(s), Pharmacy: [facility], 172, cm, 07/05/24 14:11:00 EDT, Height, kg, 07/05/24 14:11:00 EDT, Dosing Weight Start Date: 07/05/24 Stop Date: 01/01/25 Status: Ordered Quantity: 90.0 Unit: tab(s) Repeat number: 2 Start: 03-19-2024 End: 09-15-2024 take 1 tablet by mouth once daily B 100 Complex oral tablet Dose = 1 tab(s), Oral, Daily, # 90 tab(s), 1 Refill(s), Pharmacy: [facility] [place], 172, cm, 03/19/24 13:01:00 EST, Height, kg, 03/19/24 13:01:00 EST, Dosing Weight Start Date: 03/19/24 Stop Date: 09/15/24 Status: Ordered Quantity: 90.0 Unit: tab(s) Repeat number: 2 Start: 04-07-2023 End: 10-04-2023 take 1 tablet by mouth once daily B 100 Complex oral tablet Dose = 1 tab(s), Oral, Daily, # 90 tab(s), 1 Refill(s), Pharmacy: [facility], 172.7, cm, 04/07/23 10:41:00 EST, Height, kg, 04/07/23 10:41:00 EST, Dosing Weight Start Date: 04/07/23 Stop Date: 10/04/23 Status: Ordered Start: 01-11-2023 take 1 tablet by clive th once daily B 100 Complex oral tablet Dose = 1 tab(s), Oral, Daily, # 100 tab(s), 0 Refill(s) Start Date: 01/11/23 Status: Ordered Blood Glucose Test Machine (12 sources) Start: 03-04-2023 Blood Glucose Test Machine See Instructions, dx E16.2 check blood sugar twice daily, # 1 EA, 0 Refill(s), Pharmacy: [facility], Hypoglycemia, 176.5, cm, 03/04/23 8:32:00 EST, Height, 67.4, kg, 03/04/23 8:32:00 EST, Dosing Weight Start Date: 03/04/23 Status: Ordered Quantity: 1.0 Unit: EA Repeat number: 1 Indications: Hypoglycemia, unspecified; Start: 03-04-2023 Blood Glucose Test Machine See Instructions, dx E16.2 check blood sugar twice daily, # 1 EA, 0 Refill(s), Pharmacy: [facility], Hypoglycemia, 176.5, cm, 03/04/23 8:32:00 EST, Height, 67.4, kg, 03/04/23 8:32:00 EST, Dosing Weight Start Date: 03/04/23 Status: Ordered Quantity: 1.0 Unit: EA Repeat number: 1 Indication: Hypoglycemia, unspecified Start: 03-04-2023 Blood Glucose Test Machine See Instructions, dx E16.2 check blood sugar twice daily, # 1 EA, 0 Refill(s), Pharmacy: [facility], Hypoglycemia, 176.5, cm, 03/04/23 8:32:00 EST, Height, 67.4, kg, 03/04/23 8:32:00 EST, Dosing Weight Start Date: 03/04/23 Status: Ordered boost (6 sources) Start: 02-10-2023 End: 08-09-2023 take 237 mL by mouth twice daily boost boost, 237 mL, Oral, BID, dx E43, R64 take boost 2x/day, # 14,220 mL, 5 Refill(s) Start Date: 02/10/23 Stop Date: 08/09/23 Status: Ordered Start: 01-12-2023 End: 07-11-2023 take 237 mL by mouth twice daily boost boost, 237 mL, Oral, BID, dx E43, R64 take boost 2x/day, # 14,220 mL, 5 Refill(s), Pharmacy: [facility], 176.5, cm, 01/11/23 7:59:00 EDT, Height, 64.5, kg, 01/11/23 7:59:00 EDT, Dosing Weight Start Date: 01/12/23 Stop Date: 07/11/23 Status: Ordered Vhyolavjbl-Rjkenqet-Ipcuxwdb ol (2 sources) Corticosteroid, beta2-Adrenergic Agonist Start: 07-18-2024 Rhwcpfxouz-Bigrxspj-Wdxfysbu ol (Breztri Aerosphere) 160-9-4.8 mcg/actuation HFA aerosol inhaler Active 2 NMA INHALATION TWICE A DAY 10.7 July 18, 2024 12:00am busPIRone hydrochloride 10 m g oral tablet (10 sources) Start: 07-05-2024 busPIRone 10 mg oral tablet Dose : 10 mg = 1 tab(s), Oral, TID, PRN stress, # 90 tab(s), 0 Refill(s), Pharmacy: [facility] [place], 172, cm, 07/05/24 14:11:00 EDT, Height, kg, 07/05/24 14:11:00 EDT, Dosing Weight Start Date: 07/05/24 Status: Ordered Quantity: 90.0 Unit: tab(s) Repeat number: 1 Start: 12-30-2023 End: 03-13-2024 take 1 tablet by mouth three times daily Buspirone 10 mg tablet Discontinued 10 mg PO THREE TIMES A DAY March 12, 2024 1:00am March 13, 2024 11:13am calcium ascorbate 500 mg oral tablet (20 sources) Start: 04-14-2022 End: 06-16-2022 take 1 tablet by mouth once daily Ascorbate Calcium (Vitamin C) 500 mg tablet Active 500 mg PO DAILY June 16, 2022 8:23am vitamin Start: 10-07-2021 take 500 mg by mouth once mack y Ascorbate Calcium (Vitamin C) Active 500 MG PO DAILY October 07, 2021 12:00am Celebrate Multivitamin (5 sources) Start: 01-11-2023 Celebrate Multivitamin Chewed, qDay, 0 Refill(s) Start Date: 01/11/23 Status: Ordered cephalexin 500 mg oral capsule (20 sources) Cephalosporin Antibacterial Start: 08-04-2024 End: 08-11-2024 cephalexin 500 mg oral capsule Dose : 500 mg = 1 cap(s), Oral, TID, X 7 day(s), # 21 cap(s), 0 Refill(s), 08/11/24 3:46:00 PM EDT, 62.8 Start Date: 08/04/24 Stop Date: 08/11/24 Status: Ordered Quantity: 21.0 Unit: cap(s) Repeat number: 1 Start: 09-06-2022 End: 09-10-2022 take 1 capsule by mouth every six hours Cephalexin 500 mg capsule Discontinued 500 mg PO EVERY 6 HOURS 12 0 September 06, 2022 12:00am September 10, 2022 3:48pm Start: 12-30-2015 End: 08-01-2017 take 1 capsule by mouth twice daily Cephalexin 500 MG capsule Discontinued 500 mg PO TWICE A DAY 10 0 December 30, 2015 12:00am August 01, 2017 6:30pm Start: 12-30-2015 End: 08-01-2017 chlorhexidine gluconate 1.2 mg/ml mouthwash (5 sources) Start: 09-11-2021 End: 09-16-2021 Chlorhexidine Gluconate (PERIDEX) 0.12 % solution Use 15 mL as instructed twice daily for 5 days. Rinse around mouth for 30 seconds then expectorate 150 mL 0 09/11/2021 09/16/2021 Active Start: 07-24-2021 End: 07-29-2021 Chlorhexidine Gluconate (PER IDEX) 0.12 % solution Use 15 mL as instructed twice daily for 5 days. Rinse around mouth for 30 seconds then expectorate 150 mL 0 07/24/2021 07/29/2021 Active Comment on above: Use 15 mL as instruc ashlie twice daily for 5 days. Rinse around mouth for 30 seconds then expectorate cyclobenzaprine hydrochloride 5 mg oral tablet (20 sources) Muscle Relaxant Start: 10-08-2021 End: 11-07-2021 cyclobenzaprine (FLEXERIL) 5 mg tablet Indications: S/P CABG x 3 [The details of the medication are not available because there are pending changes by a home health clinician.] 60 tablet 0 10/08/2021 11/07/2021 Active Start: 09-09-2021 take 1 tablet by clive once daily cyclobenzaprine (FLEXERIL) 5 mg tablet Take 5 mg by mouth once daily. 0 09/09/2021 Suspended Start: 09-09-2021 End: 11-07-2021 take 5 mg by mouth three times daily Cyclobenzaprine Active 5 MG PO THREE TIMES A DAY September 08, 2021 11:00pm Comment on above: Take 5 mg by mouth o nce daily. Take 5 mg by mouth t hree times daily as needed for muscle spasm. [The details of the medication are not available because there are pending changes by a home health clinician.] Daily Tin oral tablet (15 sources) Start: 07-05-2024 End: 01-01-2025 take 1 tablet by mouth once daily Daily Tin oral tablet Dose = 1 tab(s), Oral, Daily, # 90 tab(s), 1 Refill(s), Pharmacy: [facility], 172, cm, 07/05/24 14:11:00 EDT, Height, kg, 07/05/24 14:11:00 EDT, Dosing Weight Start Date: 07/05/24 Stop Date: 01/01/25 Status: Ordered Quantity: 90.0 Unit: tab(s) Repeat number: 2 Start: 03-19-2024 End: 09-15-2024 take 1 tablet by mouth once daily Daily Tin oral tablet Dose = 1 tab(s), Oral, Daily, # 90 tab(s), 1 Refill(s), Pharmacy: [facility], 172, cm, 03/19/24 13:01:00 EST, Height, kg, 03/19/24 13:01:00 EST, Dosing Weight Start Date: 03/19/24 Stop Date: 09/15/24 Status: Ordered Quantity: 90.0 Unit: tab(s) Repeat number: 2 Start: 08-04-2023 End: 01-31-2024 take 1 tablet by mouth once daily Daily Tin oral tablet Dose = 1 tab(s), Oral, Daily, # 90 tab(s), 1 Refill(s), Pharmacy: [id number], 172.7, cm, 08/04/23 11:04:00 EDT, Height, kg, 08/04/23 11:04:00 EDT, Dosing Weight Start Date: 08/04/23 Stop Date: 01/31/24 Status: Ordered Start: 04-07-2023 End: 10-04-2023 take 1 tablet by mouth once daily Daily Tin oral tablet Dose = 1 tab(s), Oral, Daily, # 90 tab(s), 1 Refill(s), Pharmacy: [facility], 172.7, cm, 04/07/23 10:41:00 EST, Height, kg, 04/07/23 10:41:00 EST, Dosing Weight Start Date: 04/07/23 Stop Date: 10/04/23 Status: Ordered Start: 09-13-2022 take 1 tablet by clive th once daily Daily Tin oral tablet Dose = 1 tab(s), Oral, Daily, # 90 tab(s), 0 Refill(s) Start Date: 09/13/22 Status: Ordered DME MISCellaneous (20 sources) Start: 10-04-2024 DME MISCellane ous See Instructions, dx R06.2 dispense one spacer with for inhlaer, # 1 EA, 0 Refill(s), Pharmacy: [facility], 175.5, cm, 10/04/24 9:29:00 EDT, Height, 61.3, kg, 10/04/24 9:29:00 EDT, Dosing Weight Start Date: 10/04/24 Status: Ordered Quantity: 1.0 Unit: EA Repeat number: 1 Start: 02-16-2024 DME MISCellane ous See Instructions, dx I87.2 and I89.0 dispense 4 pairs of close toed knee high compression stockings 20-30 mmHg, # 4 EA, 2 Refill(s), 64.8 Start Date: 02/16/24 Status: Ordered Quantity: 4.0 Unit: EA Repeat number: 3 Start: 02-16-2024 DME MISCellane ous See Instructions, dx I87.2 and I89.0 dispense 4 pairs of close toed knee high compression stockings 20-30 mmHg, # 4 EA, 2 Refill(s), 64.8 Start Date: 02/16/24 Status: Ordered Start: 03-04-2023 DME MISCellane ous See Instructions, dx I10 dispense one automated upper arm spygmomanometer with supplies and digital readout., # 1 EA, 0 Refill(s), Pharmacy: [facility], 176.5, cm, 03/04/23 8:32:00 EST, Height, 67.4, kg, 03/04/23 8:32:00 EST, Dosing Weight Start Date: 03/04/23 Status: Ordered Quantity: 1.0 Unit: EA Repeat number: 1 Start: 03-04-2023 DME MISCellane ous See Instructions, dx I10 dispense one automated upper arm spygmomanometer with supplies and digital readout., # 1 EA, 0 Refill(s), Pharmacy: [facility], 176.5, cm, 03/04/23 8:32:00 EST, Height, 67.4, kg, 03/04/23 8:32:00 EST, Dosing Weight Start Date: 03/04/23 Status: Ordered doxycycline hyclate 100 mg oral capsule (13 sources) Tetracycline-class Drug Start: 09-21-2024 End: 09-28-2024 doxycycline hyclate 100 mg oral capsule Dose : 100 mg = 1 cap(s), Oral, BID, X 7 day(s), # 14 cap(s), 0 Refill(s), 09/28/24 6:57:00 PM EDT, 62 Start Date: 09/21/24 Stop Date: 09/28/24 Status: Ordered Quantity: 14.0 Unit: cap(s) Repeat number: 1 Start: 09-07-2022 End: 11-01-2022 take 1 capsule by mouth twice daily Doxycycline Hyclate 100 mg capsule Discontinued 100 mg PO TWICE A DAY 20 0 September 07, 2022 12:00am November 01, 2022 9:37pm [id number] 0.3 ml EPINEPHrine 1 mg/ml auto-injector (20 sources) alpha-Adrenergic Agonist, beta-Adrenergic Agonist, Catecholamine Start: 03-12-2024 Epinephrine (Epip en 2-Sebastian) 0.3 mg/0.3 mL auto-injector Active 0.3 mg IM ONCE March 12, 2024 1:00am as a single dose; may repeat once Start: 02-12-2023 EPINEPHrine (E pipen) 0.3 MG/0.3ML injection syringe Inject 1 Syringe as directed 1 (one) time 02/12/2023 Active Start: 02-10-2023 EpiPen 2-Sebastian 0 .3 mg injectable kit Dose : 0.3 mg =, Subcutaneous, AsDirected, PRN Allergic reaction, # 1 kit(s), 1 Refill(s), Pharmacy: [facility], 176.5, cm, 02/10/23 9:21:00 EST, Height, kg, 02/10/23 9:21:00 EST, Dosing Weight Start Date: 02/10/23 Status: Ordered Quantity: 1.0 Unit: kit(s) Repeat number: 2 Start: 01-12-2023 EpiPen 2-Sebastian 0 .3 mg injectable kit Dose : 0.3 mg =, Subcutaneous, AsDirected, PRN Allergic reaction, # 1 kit(s), 1 Refill(s), Pharmacy: [facility], 176.5, cm, 01/11/23 7:59:00 EDT, Height, kg, 01/11/23 7:59:00 EDT, Dosing Weight Start Date: 01/12/23 Status: Ordered escitalopram 20 mg oral tablet (20 sources) Serotonin Reuptake Inhibitor Start: 07-05-2024 escitalopram 20 mg oral tablet Dose : 20 mg = 1 tab(s), Oral, qDay, # 90 tab(s), 1 Refill(s), Pharmacy: [facility], 172, cm, 07/05/24 14:11:00 EDT, Height, kg, 07/05/24 14:11:00 EDT, Dosing Weight Start Date: 07/05/24 Status: Ordered Quantity: 90.0 Unit: tab(s) Repeat number: 2 Start: 03-20-2023 escitalopram 2 0 mg oral tablet Dose : 20 mg = 1 tab(s), Oral, qDay, # 90 tab(s), 1 Refill(s), Pharmacy: [facility], 172, cm, 03/19/24 13:01:00 EST, Height, kg, 03/19/24 13:01:00 EST, Dosing Weight Start Date: 03/19/24 Status: Ordered Quantity: 90.0 Unit: tab(s) Repeat number: 2 Start: 02-10-2023 escitalopram 2 0 mg oral tablet Dose : 20 mg = 1 tab(s), Oral, qDay, # 90 tab(s), 1 Refill(s), Pharmacy: [facility], 176.5, cm, 02/10/23 9:21:00 EST, Height, kg, 02/10/23 9:21:00 EST, Dosing Weight Start Date: 02/10/23 Status: Ordered Start: 01-12-2023 escitalopram 2 0 mg oral tablet Dose : 20 mg = 1 tab(s), Oral, qDay, # 90 tab(s), 0 Refill(s), Pharmacy: [facility], 176.5, cm, 01/11/23 7:59:00 EDT, Height, kg, 01/11/23 7:59:00 EDT, Dosing Weight Start Date: 01/12/23 Status: Ordered Start: 11-24-2022 End: 12-15-2022 take 1 tablet by mouth once daily Escitalopram Oxalate (Lexapro) 10 mg tablet Active 10 mg PO DAILY 90 December 15, 2022 12:49pm FeroSul 325 mg (65 mg elemen deejay iron) oral tablet (5 sources) Start: 01-11-2023 FeroSul 325 mg (65 mg elemental iron) oral tablet 0 Refill(s) Start Date: 01/11/23 Status: Ordered ferrous sulfate 325 mg delay ed release oral tablet (20 sources) Start: 09-13-2022 ferrous sulfat e 325 mg (65 mg elemental iron) oral delayed release tablet Dose : 325 mg = 1 tab(s), Oral, qDay, # 90 tab(s), 0 Refill(s) Start Date: 09/13/22 Status: Ordered Quantity: 90.0 Unit: tab(s) Repeat number: 1 Start: 10-07-2021 End: 06-16-2022 take 1 tablet by mouth once daily Ferrous Sulfate (Ferosul) 325 mg (65 mg iron) tablet Discontinued 325 mg PO DAILY 90 March 30, 2022 5:41pm June 16, 2022 11:58am Start: 09-29-2021 End: 10-29-2021 take 1 tablet by mouth once daily ferrous sulfate 325 mg (65 mg iron) tablet Take 1 tablet by mouth once daily. 30 tablet 0 09/29/2021 10/29/2021 Active Comment on above: Take 1 tablet by clive once daily. folic acid 1 mg oral tablet (20 sources) Start: 02-05-2022 End: 01-01-2025 folic acid 1 mg oral tablet Dose : 1 mg = 1 tab(s), Oral, qDay, # 90 tab(s), 1 Refill(s), Pharmacy: [facility] [place], 172, cm, 07/05/24 14:11:00 EDT, Height, kg, 07/05/24 14:11:00 EDT, Dosing Weight Start Date: 07/05/24 Stop Date: 01/01/25 Status: Ordered Quantity: 90.0 Unit: tab(s) Repeat number: 2 Start: 09-29-2021 End: 01-06-2022 take 1 tablet by mouth once daily Folic Acid 1 mg tablet Discontinued 1 mg PO DAILY 90 1 October 21, 2021 1:08pm January 06, 2022 1:43pm Comment on above: Take 1 tablet by clive th once daily. front wheeled walker (3 sources) Start: 11-26-2022 front wheeled walker Active 0 .Route .MEDSUPPLY 1 0 November 26, 2022 12:00am Cerebrovascular accident (CVA) Essential tremor Seizure Cerebral infarction, unspecified Essential tremor Unspecified convulsions CVA I63.9 ,Seizure R56.9 ,Essential Tremor G25.0 As directed Start: 11-26-2022 front wheeled walker Active 0 .Route .MEDSUPPLY November 25, 2022 11:00pm As directed 12 hr guaiFENesin 600 mg extended release oral tablet (1 source) Start: 10-04-2024 End: 04-02-2025 Mucinex 600 mg oral tablet, extended release Dose : 600 mg = 1 tab(s), Oral, q12h, X 90 day(s), # 180 tab(s), 1 Refill(s), 04/02/25 10:01:00 AM EST, Pharmacy: [facility], 175.5, cm, 10/04/24 9:29:00 EDT, Height, kg, 10/04/24 9:29:00 EDT, Dosing Weight Start Date: 10/04/24 Stop Date: 04/02/25 Status: Ordered Quantity: 180.0 Unit: tab(s) Repeat number: 2 lamoTRIgine 100 mg oral tablet (20 sources) Mood Stabilizer, Anti-epileptic Agent Start: 05-10-2022 End: 01-01-2025 lamoTRIgine 100 mg oral tablet Dose : 100 mg = 1 tab(s), Oral, BID, # 180 tab(s), 1 Refill(s), Pharmacy: [facility], 172, cm, 07/05/24 14:11:00 EDT, Height, kg, 07/05/24 14:11:00 EDT, Dosing Weight Start Date: 07/05/24 Stop Date: 01/01/25 Status: Ordered Quantity: 180.0 Unit: tab(s) Repeat number: 2 Start: 05-10-2022 End: 09-09-2022 take 0.5 tablet by mouth once daily in the morning, then take 1 tablet by mouth once daily in the evening, then take 1 tablet by mouth twice daily Lamotrigine 100 mg tablet Discontinued 100 mg .ROUTE .COMPLEX 60 5 May 10, 2022 1:00am September 09, 2022 7:33pm Take 1/2 tablet PO every morning and 1 tablet every evening for 1 week then 1 tablet twice daily thereafter. Start: 10-21-2021 End: 05-10-2022 take 2 tablets by mouth twice daily Lamotrigine (Lamictal) 25 mg tablet Discontinued 50 mg PO TWICE A DAY 120 3 October 21, 2021 1:08pm December 17, 2021 8:41pm Start: 02-12-2021 End: 10-07-2021 take 2 tablets by mouth twice daily Lamotrigine 25 mg tablet Discontinued 50 mg PO TWICE A DAY 120 4 August 11, 2021 2:12pm October 07, 2021 10:29am Start: 02-12-2021 End: 06-15-2021 take 1 tablet by mouth twice daily, then take 2 tablets by mouth twice daily Lamotrigine 25 mg tablet Discontinued 0 .ROUTE .COMPLEX 0 0 April 16, 2021 5:09pm June 15, 2021 2:40pm 1 tablet PO twice a day for 1 week then 2 tablets twice a day thereafter Start: 02-12-2021 End: 10-07-2021 take 50 mg by mouth twice daily Lamotrigine Discontinu ed 50 MG PO TWICE A DAY 120 August 11, 2021 1:12pm October 07, 2021 9:29am take 2 tablets by mo uth once daily lamoTRIgine (LAMICTAL) 25 mg tablet Take 50 mg by mouth once daily. 0 Suspended Comment on above: Take 50 mg by mouth once daily. Take 50 mg by mouth twice daily. levETIRAcetam 500 mg oral tablet (20 sources) Start: 3 End: take 1 tablet by mouth twice daily Levetiracetam 500 mg tablet Active 500 mg PO TWICE A DAY March 13, 2024 1:00am Start: 02-14-2018 End: 08-21-2018 take 1 tablet by mouth twice daily Levetiracetam 750 MG tablet Discontinued 750 mg PO TWICE A DAY 60 1 February 14, 2018 1:00am August 21, 2018 1:45pm Start: 08-02-2017 End: 02-14-2018 take 1 tablet by mouth twice daily Levetiracetam (Keppra) 250 mg tablet Discontinued 250 mg PO TWICE A DAY October 03, 2017 2:16pm February 14, 2018 1:37pm seizures Start: 08-01-2017 End: 08-02-2017 take 1 tablet by mouth every twelve hours Levetiracetam (Keppra) 500 mg tablet Discontinued 500 mg PO Q12H August 01, 2017 12:00am August 02, 2017 1:06pm Start: 08-01-2017 End: 08-02-2017 levothyroxine sodium 0.025 mg oral tablet (2 sources) l-Thyroxine Start: 08-31-2024 levothyroxine 25 mcg (0.025 mg) oral tablet Dose : 25 mcg = 1 tab(s), Oral, qDayAC, as a single daily dose before breakfast with plenty of water on an empty stomach wait 30 minutes before ingesting anything else, # 90 tab(s), 0 Refill(s), Pharmacy: [facility], 175.5, cm, 08/09/24 9:35:00 EDT, Height, kg, 08/09/24 9:35:00 EDT, Dosing Weight Start Date: 08/31/24 Status: Ordered Quantity: 90.0 Unit: tab(s) Repeat number: 1 LORazepam 1 mg oral tablet (9 sources) Benzodiazepine Start: 01-12-2023 Ativan 1 mg or al tablet Dose : 1 mg = 1 tab(s), Oral, qDay, # 30 tab(s), 0 Refill(s), 64.5 Start Date: 01/12/23 Status: Ordered Start: 11-10-2022 End: 11-18-2022 take 1 tablet by mouth every eight hours as needed for anxiety Lorazepam (Ativan) 0.5 mg tablet Discontinued 0.5 mg PO Q8H as needed for anxiety 12 3 0 November 10, 2022 12:00am November 18, 2022 2:43pm magnesium oxide 400 mg oral tablet (20 sources) Start: 04-07-2023 End: 10-04-2023 magnesium oxide 400 mg oral capsule Dose : 400 mg = 1 cap(s), Oral, qDay, X 90 day(s), # 90 cap(s), 1 Refill(s), 10/04/23 11:04:00 AM EDT, Pharmacy: [facility], 172.7, cm, 04/07/23 10:41:00 EST, Height, kg, 04/07/23 10:41:00 EST, Dosing Weight Start Date: 04/07/23 Stop Date: 10/04/23 Status: Ordered Start: 01-11-2023 magnesium oxid e 400 mg oral capsule Dose : 400 mg = 1 cap(s), Oral, qDay, # 75 cap(s), 0 Refill(s) Start Date: 01/11/23 Status: Ordered Start: 09-29-2021 End: 01-01-2025 take 1 tablet by mouth once daily Magnesium Oxide 400 mg (241.3 mg magnesium) tablet Discontinued 400 mg PO DAILY 90 October 21, 2021 1:08pm March 30, 2022 5:43pm Comment on above: Take 1 tablet by clive th once daily. Metoprolol (20 sources) beta-Adrenergic Millie Start: 07-28-2023 take 2 tablets by mouth once daily Metoprolol Succinate 25 mg tablet extended release 24 hr Active 12.5 mg PO daily July 28, 2023 12:00am Start: 03-16-2023 End: 01-01-2025 metoprolol succinate 25 mg o ral TABLET extended release Dose : 12.5 mg = 0.5 tab(s), Oral, qDay, Do not crush or chew (controlled release), # 45 tab(s), 1 Refill(s), Pharmacy: [facility], 172, cm, 07/05/24 14:11:00 EDT, Height, kg, 07/05/24 14:11:00 EDT, Dosing Weight Start Date: 07/05/24 Stop Date: 01/01/25 Status: Ordered Quantity: 45.0 Unit: tab(s) Repeat number: 2 Start: 09-28-2021 End: 10-28-2021 take 1 tablet by mouth every twelve hours metoprolol tartrate, short acting, (LOPRESSOR) 25 mg tablet Take 1 tablet by mouth every 12 hours. 60 tablet 0 09/28/2021 Active Start: 07-24-2021 End: 09-11-2021 take 0.5 tablet by mouth once in the morning metoprolol tartrate, short acting, (LOPRESSOR) 25 mg tablet Take 0.5 tablets by mouth one time only for 1 dose. Take am of surgery with your morning meds. DO NOT take Toprol XL ( metoprolol succinate) as well at this time. 1 tablet 0 09/11/2021 Suspended Start: 05-27-2021 End: 11-24-2021 take 1 tablet by mouth once daily Metoprolol Succinate 25 mg tablet extended release 24 hr Discontinued 25 mg PO DAILY 90 4 June 02, 2021 3:43pm November 24, 2021 3:34pm Start: 05-27-2021 End: 06-02-2021 take 2 tablets by mouth once daily Metoprolol Succinate 25 mg tablet extended release 24 hr Discontinued 12.5 mg PO DAILY 45 May 27, 2021 12:50pm June 02, 2021 3:43pm Start: 05-27-2021 End: 06-02-2021 take 12.5 mg by mouth once daily Metoprolol Succinate Discontinued 12.5 MG PO DAILY 45 May 27, 2021 11:50am June 02, 2021 2:43pm Comment on above: Take 25 mg by mouth once daily. Take 0.5 tablets by mouth one time only for 1 dose. Take am of surgery with your morning meds. DO NOT take Toprol XL ( metoprolol succinate) as well at this time. Take 1 tablet by clive th every 12 hours. mirtazapine 45 mg oral tablet (10 sources) Start: 07-05-2024 End: 01-01-2025 mirtazapine 45 mg oral tablet Dose : 45 mg = 1 tab(s), Oral, qHS, # 90 tab(s), 1 Refill(s), Pharmacy: [facility] [place], 172, cm, 07/05/24 14:11:00 EDT, Height, kg, 07/05/24 14:11:00 EDT, Dosing Weight Start Date: 07/05/24 Stop Date: 01/01/25 Status: Ordered Quantity: 90.0 Unit: tab(s) Repeat number: 2 Start: 05-10-2024 mirtazapine 45 mg oral tablet Dose : 45 mg = 1 tab(s), Oral, qHS, new dose, # 30 tab(s), 1 Refill(s), Pharmacy: [facility], 172, cm, 05/10/24 13:51:00 EST, Height, kg, 05/10/24 13:51:00 EST, Dosing Weight Start Date: 05/10/24 Status: Ordered Quantity: 30.0 Unit: tab(s) Repeat number: 2 Start: 10-13-2023 End: 04-10-2024 take 1 tablet by mouth once daily Mirtazapine 30 mg tablet Active 30 mg PO daily March 12, 2024 1:00am Multiple Vitamin (multivitamin) capsule (6 sources) take 1 capsule by mouth in the morning Multiple Vitamin (multivitamin) capsule Take 1 capsule by mouth in the morning. Active Multivitamin With Folic Acid (Daily-Tin (With Folic Acid)) 400 mcg tablet (20 sources) Start: 06-16-2022 Multivitamin With Folic Acid (Daily-Tin (With Folic Acid)) 400 mcg tablet Active 1 {tbl} PO DAILY June 16, 2022 11:57am vitamin Start: 06-16-2022 take 1 tablet by clive th once daily Multivitamin With Folic Acid (Daily-Tin (With Folic Acid)) 400 mcg tablet Active 1 TABLET PO DAILY June 16, 2022 10:57am Start: 06-16-2022 take 1 tablet by clive th once daily Multivitamin With Folic Acid (Daily-Tin (With Folic Acid)) 400 mcg tablet Active 1 TABLET PO DAILY June 16, 2022 11:57am Start: 01-06-2022 End: 06-16-2022 Multivitamin With Folic Acid (Daily-Tin (With Folic Acid)) 400 mcg tablet Discontinued 1 {tbl} PO DAILY January 06, 2022 12:00am June 16, 2022 11:58am Start: 01-06-2022 End: 06-16-2022 take 1 tablet by mouth once daily Multivitamin With Folic Acid (Daily-Tin (With Folic Acid)) 400 mcg tablet Discontinued 1 TABLET PO DAILY January 05, 2022 11:00pm June 16, 2022 10:58am Start: 01-06-2022 End: 06-16-2022 take 1 tablet by mouth once daily Multivitamin With Folic Acid (Daily-Tin (With Folic Acid)) 400 mcg tablet Discontinued 1 TABLET PO DAILY January 06, 2022 12:00am June 16, 2022 11:58am Start: 01-06-2022 take 1 tablet by clive th once daily Multivitamin With Folic Acid (Daily-Tin (With Folic Acid)) 400 mcg tablet Active 1 TABLET PO DAILY January 05, 2022 11:00pm Start: 01-06-2022 take 1 tablet by clive th once daily Multivitamin With Folic Acid (Daily-Tin (With Folic Acid)) 400 mcg tablet Active 1 TABLET PO DAILY January 06, 2022 12:00am mupirocin 0.02 mg/mg topical ointment (5 sources) RNA Synthetase Inhibitor Antibacterial Start: 09-11-2021 End: 09-16-2021 mupirocin (BACTROBAN) 2 % ointment Apply to affected area twice daily for 5 days. 22 g 0 09/11/2021 09/16/2021 Active Start: 07-24-2021 End: 07-29-2021 mupirocin (BACTROBAN) 2 % oi ntment Apply to affected area twice daily for 5 days. 22 g 0 07/24/2021 07/29/2021 Active Comment on above: Apply to affected ar ea twice daily for 5 days. nitroglycerin 0.4 mg sublingual tablet (20 sources) Nitrate Vasodilator Start: 07-28-2023 End: 04-10-2024 Nitroglycerin (Nitrostat) 0.4 mg tablet, sublingual Active 0.4 mg SL every 5 to 15 minutes as needed for chest pain 26 06April 10, 2024 3:40pm do not exceed 3 doses per episode Start: 01-12-2023 End: 04-12-2023 nitroglycerin 0.3 mg subling ual tablet Dose : 0.3 mg = 1 tab(s), Sublingual, q5min, PRN for chest pain, # 100 tab(s), 2 Refill(s), Pharmacy: [facility], 176.5, cm, 01/11/23 7:59:00 EDT, Height, kg, 01/11/23 7:59:00 EDT, Dosing Weight Start Date: 01/12/23 Stop Date: 04/12/23 Status: Ordered Quantity: 100.0 Unit: tab(s) Repeat number: 3 Start: 04-16-2021 End: 01-01-2022 Nitroglycerin (Nitrostat) 0. 4 mg tablet, sublingual Discontinued 0.4 MG SL every 5 to 15 minutes May 29, 2021 11:54am June 02, 2021 2:35pm do not exceed 3 doses per episode Start: 07-09-2020 End: 10-10-2020 Nitroglycerin 0.3 mg tablet, sublingual Discontinued 0.3 mg SL Q5M as needed July 09, 2020 12:00am October 10, 2020 2:05pm do not exceed 3 doses per episode Start: 07-09-2020 End: 10-10-2020 Nitroglycerin Discontinued 0 .3 MG SL Q5M July 08, 2020 11:00pm October 10, 2020 1:05pm do not exceed 3 doses per episode Start: 07-09-2020 End: 10-10-2020 Start: 05-12-2020 End: 01-01-2022 Nitroglycerin (Nitrostat) 0. 4 mg tablet, sublingual Discontinued 0.4 mg SL every 5 to 15 minutes as needed for chest pain 26 06May 29, 2021 12:54pm June 02, 2021 3:35pm do not exceed 3 doses per episode Start: 03-03-2018 End: 09-26-2019 Nitroglycerin 0.4 mg tablet, sublingual Discontinued 0.4 mg SL every 5 to 15 minutes as needed for chest pain 26 06March 03, 2018 1:00am September 26, 2019 2:14pm until response; do not exceed 3 doses per episode Comment on above: Dissolve 1 tablet un megan the tongue every 5 minutes as needed for Chest Pain. August of three doses. pantoprazole 40 mg delayed release oral tablet (20 sources) Proton Pump Inhibitor Start: 3 End: take 1 tablet by mouth once daily Pantoprazole 40 mg tablet,delayed release (DR/EC) Active 40 mg PO daily March 12, 2024 1:00am perflutren lipid microspheres 1.3 mL in NaCl (PF) 0.9% 10 mL injection (DEFINITY) (15 sources) Start: 2 End: 3 perflutren lipid microspheres 1.3 mL in NaCl (PF) 0.9% 10 mL injection (DEFINITY) pramipexole dihydrochloride 0.125 mg oral tablet (17 sources) Nonergot Dopamine Agonist Start: 3 End: 5 take 1 tablet by mouth three times daily Pramipexole 0.125 mg tablet Active 0.125 mg PO THREE TIMES A DAY March 13, 2024 1:00am Start: 01-12-2023 pramipexole 0. 125 mg oral tablet Dose : 0.125 mg = 1 tab(s), Oral, TID, # 90 tab(s), 1 Refill(s), Pharmacy: [facility], 176.5, cm, 01/11/23 7:59:00 EDT, Height, kg, 01/11/23 7:59:00 EDT, Dosing Weight Start Date: 01/12/23 Status: Ordered primidone 50 mg oral tablet (20 sources) Anti-epileptic Agent Start: 04-19-2024 primidone (Mysoline) 50 MG tablet Indications: Tremor Take one (1) tablet in the morning, one and a half (1.5) tablets in the afternoon, and one (1) tablet in the evening. 315 tablet 1 04/19/2024 Active Start: 04-05-2024 Primidone 50 m g tablet Active 50 mg PO Q8H April 05, 2024 1:00am 50mg twice daily and 75 mg at bedtime Start: 04-29-2023 End: 04-19-2024 primidone (Mysoline) 50 MG t ablet Indications: Tremor Take two (2) tablets in the morning, two (2) tablets in the afternoon, and two (2) tablets in the evening. 180 tablet 2 04/29/2023 04/19/2024 Discontinued (Reorder) Start: 04-22-2023 End: 01-26-2024 primidone (Mysoline) 50 MG t ablet Indications: Tremor Take one-half tablet daily in the afternoon in addition to your 50 mg dose for a total of 75 mg. 15 tablet 5 04/22/2023 01/26/2024 Discontinued Start: 09-13-2022 primidone 50 m g oral tablet Dose : 50 mg = 1 tab(s), Oral, TID, # 90 tab(s), 0 Refill(s) Start Date: 01/11/23 Status: Ordered Start: 09-09-2022 End: 03-13-2024 take 1 tablet by mouth three times daily Primidone 50 mg tablet Discontinued 100 mg PO THREE TIMES A DAY 180 September 09, 2022 7:31pm March 13, 2024 11:13am tremor Start: 09-05-2022 End: 09-09-2022 take 1 tablet by mouth twice daily Primidone 50 mg tablet Discontinued 75 mg PO TWICE A DAY September 05, 2022 7:30pm September 09, 2022 7:33pm tremor Start: 05-10-2022 End: 09-05-2022 take 1 tablet by mouth three times daily Primidone 50 mg tablet Discontinued 100 mg PO THREE TIMES A DAY 180 5 May 10, 2022 8:09pm September 05, 2022 7:31pm tremor Start: 04-16-2021 End: 05-10-2022 take 1 tablet by mouth twice daily Primidone 50 mg tablet Discontinued 75 mg PO TWICE A DAY 90 5 December 17, 2021 8:33pm May 10, 2022 8:12pm tremor Start: 04-16-2021 End: 09-09-2022 take 100 mg by mouth three times daily Primidone Discontinued 100 MG PO THREE TIMES A DAY 180 May 10, 2022 7:09pm September 05, 2022 6:31pm Start: 04-16-2021 End: 09-09-2022 take 75 mg by mouth twice daily Primidone Discontinued 75 MG PO TWICE A DAY September 05, 2022 6:30pm September 09, 2022 6:33pm primidone (MYSOL INE) 50 mg tablet Take 75 mg by mouth twice daily. 0 Active Comment on above: Take 50 mg by mouth twice daily. Take 75 mg by mouth twice daily. Sennosides (Senna) 8.6 mg tablet (2 sources) Start: 03-12-2024 take 1 tablet by mouth once daily Sennosides (Senna) 8.6 mg tablet Active 8.6 mg PO daily March 12, 2024 1:00am sennosides, [facility] 8.6 mg oral tablet (20 sources) Start: 04-07-2023 End: 01-01-2025 senna (sennosides) 8.6 mg oral tablet Dose : 17.2 mg = 2 tab(s), Oral, qHS, PRN for constipation, X 90 day(s), # 180 tab(s), 1 Refill(s), 01/01/25 2:55:00 PM EDT, Pharmacy: [facility], 172, cm, 07/05/24 14:11:00 EDT, Height, kg, 07/05/24 14:11:00 EDT, Dosing Weight Start Date: 07/05/24 Stop Date: 01/01/25 Status: Ordered Quantity: 180.0 Unit: tab(s) Repeat number: 2 Start: 01-11-2023 senna (sennosi zoltan) 8.6 mg oral tablet Dose : 8.6 mg = 1 tab(s), Oral, qHS, PRN for constipation, 0 Refill(s) Start Date: 01/11/23 Status: Ordered 125 ml sodium chloride 9 mg/ml prefilled syringe (15 sources) Start: 06-25-2021 End: 09-24-2022 sodium chloride 0.9 % (flush) 10 mL (BD POSIFLUSH) tamsulosin hydrochloride 0.4 mg oral capsule (3 sources) alpha-Adrenergi c Millie Start: 08-09-2024 tamsulosin 0.4 mg oral capsule Dose : 0.4 mg = 1 cap(s), Oral, qDay, # 90 cap(s), 0 Refill(s), Pharmacy: [facility], 175.5, cm, 08/09/24 9:35:00 EDT, Height, kg, 08/09/24 9:35:00 EDT, Dosing Weight Start Date: 08/09/24 Status: Ordered Quantity: 90.0 Unit: cap(s) Repeat number: 1 thiamine 100 mg oral tablet (20 sources) Start: 09-13-2022 End: 01-01-2025 take 1 tablet by mouth twice daily Thiamine Hcl (Vitamin B1) 100 mg tablet Active 100 mg PO TWICE A DAY December 22, 2022 12:00am supplement Start: 09-28-2021 End: 12-22-2022 take 1 tablet by mouth three times daily Thiamine Hcl (Vitamin B1) 100 mg tablet Discontinued 100 mg PO THREE TIMES A DAY 90 1 June 16, 2022 8:22am December 22, 2022 1:07pm supplement Start: 08-01-2017 End: 08-21-2018 take 1 tablet by mouth once daily Thiamine Hcl (Vitamin B1) 100 mg tablet Discontinued 100 mg PO daily August 01, 2017 12:00am August 21, 2018 1:45pm supplement Start: 08-01-2017 End: 08-21-2018 Comment on above: 1 tablet by ORAL/FEE DING TUBE route three times daily. Vitamin C 500 mg oral tablet (20 sources) Start: 01-11-2023 Vitamin C 500 mg oral tablet Dose : 500 mg = 1 tab(s), Oral, qDay, # 90 tab(s), 0 Refill(s) Start Date: 01/11/23 Status: Ordered Quantity: 90.0 Unit: tab(s) Repeat number: 1 Start: 01-11-2023 Vitamin C 500 mg oral tablet Dose : 500 mg = 1 tab(s), Oral, qDay, # 90 tab(s), 0 Refill(s) Start Date: 01/11/23 Status: Ordered Start: 09-13-2022 Vitamin C 500 mg oral tablet Dose : 500 mg = 1 tab(s), Oral, qDay, # 90 tab(s), 0 Refill(s) Start Date: 09/13/22 Status: Ordered (20 sources) Start: 12-22-2022 Start: 12-16-2022 Start: 12-16-2022 End: 12-16-2022 Start: 11-26-2022 Start: 06-16-2022 Start: 06-16-2022 End: 12-22-2022 Start: 06-16-2022 Start: 01-06-2022 End: 06-16-2022 Start: 10-21-2021 End: 01-06-2022 Start: 10-21-2021 End: 10-21-2021 Start: 10-07-2021 End: 06-16-2022 Completed/Discontinued Medications Medication Drug Class(es) Dates Sig (Normalized) Sig (Original) acetaminophen 325 mg / oxyCODONE hydrochloride 5 mg oral tablet (20 sources) Opioid Agonist Start: 09-07-2022 End: 09-10-2022 take 7-10 tablets by mouth every six hours as needed for pain Oxycodone-Acetamino phen (Percocet) 5-325 mg tablet Discontinued 1 {tbl} PO EVERY 6 HOURS as needed for pain (scale score 7-10) 28 7 0 September 07, 2022 September 13, 2022 12:00am September 10, 2022 3:48pm Pain of scalp Complex laceration of scalp Fall from ladder Headache, unspecified Laceration without foreign body of scalp, initial encounter Fall on and from ladder, initial encounter 28 tabs (twenty-eight) Start: 09-07-2022 End: 09-10-2022 Start: 12-30-2015 End: 08-01-2017 Oxycodone-Acetaminophen 1 TA BLET tablet Discontinued 1 {tbl} PO EVERY 6 HOURS NEEDED as needed for Pain 15 0 December 30, 2015 12:00am August 01, 2017 6:30pm Start: 12-30-2015 End: 08-01-2017 take 1 tablet by mouth every six hours as needed Oxycodone-Acetaminophen Discontinued 1 TABLET PO EVERY 6 HOURS NEEDED 15 December 29, 2015 11:00pm August 01, 2017 5:30pm Start: 12-30-2015 End: 08-01-2017 amiodarone hydrochloride 200 mg oral tablet (20 sources) Antiarrhythmic Start: 11-16-2022 End: 02-09-2023 Amiodarone 200 mg tablet Discontinued 100 mg PO DAILY 90 1 November 18, 2022 4:42pm February 09, 2023 12:12pm heart Start: 11-16-2022 End: 02-09-2023 take 100 mg by mouth once daily Amiodarone Discontinue d 100 MG PO DAILY November 18, 2022 3:42pm February 09, 2023 11:12am Start: 09-13-2022 amiodarone 200 mg oral tablet Dose : 200 mg = 1 tab(s), Oral, qDayM, 0 Refill(s) Start Date: 09/13/22 Status: Ordered Start: 10-07-2021 End: 02-09-2023 take 0.5 tablet by mouth once daily Amiodarone 200 mg tablet Discontinued 100 mg PO DAILY 90 June 18, 2022 2:09pm November 16, 2022 4:12pm heart take 200 mg daily for 5 days and 1/2 tablet there after Start: 10-07-2021 End: 11-16-2022 take 0.5 tablet by mouth once daily Amiodarone Discontinued 100 MG PO DAILY June 18, 2022 1:09pm November 16, 2022 3:12pm take 200 mg daily for 5 days and 1/2 tablet there after Start: 09-28-2021 End: 11-06-2021 take 1 tablet by mouth once daily Amiodarone 200 mg tablet Discontinued 200 mg PO DAILY October 07, 2021 12:00am October 21, 2021 11:32am Comment on above: Take 1 tablet by clive th once daily for 5 days, THEN 0.5 tablets once daily. amoxicillin 875 mg / clavulanate 125 mg oral tablet (19 sources) Penicillin-class Antibacterial Start: 02-05-2022 End: 04-08-2022 Amoxicillin-Pot Clavulanate 875-125 mg tablet Discontinued 1 {tbl} PO TWICE A DAY February 05, 2022 12:00am April 08, 2022 3:16pm Start: 02-05-2022 End: 04-08-2022 take 1 tablet by mouth twice daily Amoxicillin-Pot Clavulanate Discontinued 1 TABLET PO TWICE A DAY February 04, 2022 11:00pm April 08, 2022 2:16pm Start: 02-05-2022 End: 04-08-2022 aspirin 81 mg delayed release oral tablet (20 sources) Platelet Aggregation Inhibitor, Nonsteroidal Anti-inflammatory Drug Start: 02-12-2021 End: 01-01-2025 take 1 tablet by mouth once daily Aspirin (Adult Aspirin Regimen) 81 mg tablet,delayed release (DR/EC) Discontinued 81 mg PO DAILY October 21, 2021 1:08pm June 16, 2022 11:58am Start: 08-01-2017 End: 09-26-2019 take 1 tablet by mouth once daily Aspirin (Adult Aspirin Regimen) 81 mg tablet,delayed release (DR/EC) Discontinued 81 mg PO daily August 01, 2017 12:00am September 26, 2019 2:13pm [facility] pt states he is not currently taking Comment on above: Take 81 mg by mouth once daily. carvedilol 3.125 mg oral tablet (20 sources) alpha-Adrenergic Millie, beta-Adrenergic Millie Start: 09-20-2018 End: 09-26-2019 take 1 tablet by mouth twice daily Carvedilol 3.125 MG tablet Discontinued 3.125 mg PO TWICE A DAY 60 0 September 20, 2018 12:00am September 26, 2019 2:14pm Celebrate Multivitamin oral tablet, chewable (9 sources) Start: 03-19-2024 End: 09-15-2024 take 1 tablet by mouth once daily Celebrate Multivitamin oral tablet, chewable Dose = 1 tab(s), Chewed, qDay, # 90 tab(s), 1 Refill(s), Pharmacy: [facility], 172, cm, 03/19/24 13:01:00 EST, Height, kg, 03/19/24 13:01:00 EST, Dosing Weight Start Date: 03/19/24 Stop Date: 09/15/24 Status: Ordered Quantity: 90.0 Unit: tab(s) Repeat number: 2 Start: 04-07-2023 End: 10-04-2023 take 1 tablet by mouth once daily Celebrate Multivitamin oral tablet, chewable Dose = 1 tab(s), Chewed, qDay, # 90 tab(s), 1 Refill(s), Pharmacy: [facility], 172.7, cm, 04/07/23 10:41:00 EST, Height, kg, 04/07/23 10:41:00 EST, Dosing Weight Start Date: 04/07/23 Stop Date: 10/04/23 Status: Ordered clopidogrel 75 mg oral tablet (20 sources) [id number] Platelet Inhibitor Start: 04-16-2021 End: 01-01-2025 take 1 tablet by mouth once daily Clopidogrel (Plavix) 75 mg tablet Discontinued 75 mg PO DAILY 90 3 November 18, 2022 4:42pm April 10, 2024 3:35pm anti platelet Start: 10-03-2017 End: 09-26-2019 take 1 tablet by mouth once daily Clopidogrel (Plavix) 75 MG tablet Discontinued 75 mg PO DAILY September 19, 2018 1:34pm September 26, 2019 2:14pm stents pt states he is not currently taking Comment on above: Take 75 mg by mouth once daily. docusate sodium 50 mg / sennosides, [facility] 8.6 mg oral tablet (20 sources) Start: 10-07-2021 End: 11-24-2021 Start: 09-28-2021 End: 11-24-2021 Sennosides-Docusate Sodium ( Senna With Docusate Sodium) 8.6-50 mg tablet Discontinued 1 NMA PO TWICE A DAY October 07, 2021 12:00am November 24, 2021 3:34pm Start: 09-20-2018 End: 09-26-2019 Sennosides-Docusate Sodium 1 EACH tablet Discontinued 1 NMA PO TWICE DAILY NEEDED as needed for constipation 60 0 September 20, 2018 3:49pm September 26, 2019 2:14pm Start: 09-20-2018 End: 09-26-2019 Sennosides-Docusate Sodium D iscontinued 1 EACH PO TWICE DAILY NEEDED 60 September 20, 2018 2:49pm September 26, 2019 1:14pm Start: 09-20-2018 End: 09-26-2019 Comment on above: Take 1 tablet by [facility] twice daily. doxepin hydrochloride 10 mg oral capsule (20 sources) Tricyclic Antidepressant Start: 02-14-20 End: 08-22-19 take 1 capsule by mouth at bedtime Doxepin 10 MG capsule Discontinued 10 mg PO AT BEDTIME February 13, 2018 1:00am August 21, 2018 1:45pm Start: 02-13-2018 End: 08-21-2018 food supplemt, lactose-reduc ed (BOOST BREEZE NUTRITIONAL) 0.04-1.05 gram-kcal/mL (14 sources) Start: 09-28-2021 food supplemt, lactose-reduced (BOOST BREEZE NUTRITIONAL) 0.04-1.05 gram-kcal/mL Take 1 Can by mouth twice daily for 14 days. 237 mL 0 09/28/2021 Active Start: 09-28-2021 food supplemt, lactose-reduced (BOOST BREEZE NUTRITIONAL) 0.04-1.05 gram-kcal/mL [The details of the medication are not available because there are pending changes by a home health clinician.] 237 mL 0 09/28/2021 Active Start: 09-28-2021 End: 10-12-2021 food supplemt, lactose-reduc ed (BOOST BREEZE NUTRITIONAL) 0.04-1.05 gram-kcal/mL [The details of the medication are not available because there are pending changes by a home health clinician.] 237 mL 0 09/28/2021 10/12/2021 Active Start: 09-28-2021 End: 10-12-2021 food supplemt, lactose-reduc ed (BOOST BREEZE NUTRITIONAL) 0.04-1.05 gram-kcal/mL Take 1 Can by mouth twice daily for 14 days. 237 mL 0 09/28/2021 10/12/2021 Active Comment on above: Take 1 Can by mouth twice daily for 14 days. [The details of the medication are not available because there are pending changes by a home health clinician.] Food Supplemt, Lactose-Reduced (Ensure Original) liquid (3 sources) Start: 12-16-2022 End: 07-28-2023 Food Supplemt, Lactose-Reduced (Ensure Original) liquid Discontinued 0 PO .COMPLEX 60 December 16, 2022 12:00am July 28, 2023 2:39pm Protein calorie malnutrition 1 can twice daily orally; Start: 12-16-2022 Food Supplemt, Lactose-Reduced (Ensure Original) liquid Active 0 PO .COMPLEX 60 December 15, 2022 11:00pm 1 can twice daily orally; Food Supplemt, Lactose-Reduced (Ensure) liquid (3 sources) Start: 12-16-2022 End: 12-16-2022 take 1 mL by mouth twice daily Food Supplemt, Lactose-Reduced (Ensure) liquid Discontinued mL PO .BID December 16, 2022 12:00am December 16, 2022 2:53pm Weight loss Abnormal weight loss Start: 12-16-2022 End: 12-16-2022 take 1 mL by mouth twice daily Food Supplemt, Lactose-Reduced (Ensure) liquid Discontinued ML PO .BID December 15, 2022 11:00pm December 16, 2022 1:53pm gabapentin 100 mg oral capsule (20 sources) Anti-epileptic Agent Start: 10-07-2021 End: 11-24-2021 take 1 capsule by mouth twice daily Gabapentin 100 mg capsule Discontinued 100 mg PO TWICE A DAY October 07, 2021 12:00am November 24, 2021 3:33pm Start: 09-28-2021 End: 11-06-2021 take 2 capsules by mouth twice daily gabapentin (NEURONTIN) 100 mg capsule Take 2 capsules by mouth twice daily for 14 days. 56 capsule 0 09/28/2021 11/06/2021 Discontinued (Course of therapy completed) Comment on above: Take 2 capsules by m outh twice daily for 14 days. 24 hr isosorbide mononitrate 30 mg extended release oral tablet (20 sources) Nitrate Vasodilator Start: 04-16-19 End: 10-08-19 take 1 tablet by mouth once daily, then take 1 tablet by mouth every twenty-four hours Isosorbide Mononitrate 30 mg tablet extended release 24 hr Discontinued 30 mg PO DAILY 90 April 16, 2021 1:00am October 07, 2021 10:29am Comment on above: Take 30 mg by mouth once daily. lidocaine 0.04 mg/mg medicated patch (20 sources) Antiarrhythmic, Amide Local Anesthetic Start: 09-30-19 apply 1 dose transdermal route once daily lidocaine (SALONPAS) 4 % patch Apply 1 Patch as directed once daily. 0 09/29/2021 Active Start: 07-04-2021 End: 11-24-2021 Lidocaine (Lidoderm) 5 % adh esive patch,medicated Discontinued 1 NMA TOPICAL DAILY 6 July 04, 2021 12:00am November 24, 2021 3:34pm leave on most painful area for up to 12 hrs Comment on above: Apply 1 Patch as dir ected once daily. meclizine hydrochloride 25 mg oral tablet (20 sources) Antiemetic Start: 06-30-19 End: 10-08-19 take 1 tablet by mouth every eight hours as needed for dizziness Meclizine 25 MG tablet Discontinued 25 mg PO EVERY 8 HOURS NEEDED as needed for Dizziness June 29, 2021 12:00am October 07, 2021 10:30am Multivitamin (Daily-Tin) tablet (20 sources) Start: 10-22-19 End: 01-07-20 Multivitamin (Daily-Tin) tablet Discontinued 1 {tbl} PO DAILY 90 October 21, 2021 1:08pm January 06, 2022 1:43pm Start: 10-21-2021 End: 01-06-2022 take 1 tablet by mouth once daily Multivitamin (Daily-Tin) tablet Discontinued 1 TABLET PO DAILY October 21, 2021 12:08pm January 06, 2022 12:43pm Start: 10-21-2021 End: 01-06-2022 take 1 tablet by mouth once daily Multivitamin (Daily-Tin) tablet Discontinued 1 TABLET PO DAILY October 21, 2021 1:08pm January 06, 2022 1:43pm Start: 10-21-2021 take 1 tablet by clive th once daily Multivitamin (Daily-Tin) tablet Active 1 TABLET PO DAILY October 21, 2021 1:08pm Start: 10-21-2021 End: 10-21-2021 Multivitamin (Daily-Tin) ta blet Discontinued 1 {tbl} PO DAILY October 21, 2021 12:00am October 21, 2021 1:09pm Start: 10-21-2021 End: 10-21-2021 take 1 tablet by mouth once daily Multivitamin (Daily-Tin) tablet Discontinued 1 TABLET PO DAILY October 20, 2021 11:00pm October 21, 2021 12:09pm Start: 10-21-2021 End: 10-21-2021 take 1 tablet by mouth once daily Multivitamin (Daily-Tin) tablet Discontinued 1 TABLET PO DAILY October 21, 2021 12:00am October 21, 2021 1:09pm 24 hr nicotine 0.875 mg/hr transdermal system (20 sources) Cholinergic Nicotinic Agonist Start: 10-07-2021 End: 11-24-2021 apply 1 dose transdermal route every twenty-four hours Nicotine 21 mg/24 hr patch 24 hour Discontinued 1 NMA TD DAILY October 07, 2021 12:00am November 24, 2021 3:34pm Start: 10-07-2021 End: 11-24-2021 apply 1 dose transdermal route once daily Nicotine Discontinued 1 PATCH TD DAILY October 06, 2021 11:00pm November 24, 2021 2:34pm Start: 10-07-2021 End: 11-24-2021 Start: 09-29-2021 End: 10-13-2021 apply 1 dose transdermal route once daily nicotine (NICODERM) 21 mg/24 hr Apply 1 Patch as directed once daily for 14 days. 14 Patch 0 09/29/2021 Active Start: 09-20-2018 End: 09-26-2019 apply 21 mg transdermal route once daily Nicotine 21 MG patch Discontinued 21 mg TRANSDERM. DAILY 30 0 September 20, 2018 12:00am September 26, 2019 2:14pm Start: 09-20-2018 End: 09-26-2019 Comment on above: Apply 1 Patch as dir ected once daily for 14 days. ondansetron 4 mg disintegrating oral tablet (16 sources) Serotonin-3 Receptor Antagonist Start: End: take 1 tablet by mouth every six hours as needed for nausea and vomiting Ondansetron 4 mg tablet,disintegratin g Discontinued 4 mg PO EVERY 6 HOURS as needed for nausea and vomiting 10 April 10, 2022 1:00am March 13, 2024 11:12am oseltamivir 75 mg oral capsule (18 sources) Neuraminidase Inhibitor Start: End: take 1 capsule by mouth twice daily Oseltamivir 75 mg capsule Discontinued 75 mg PO TWICE A DAY 10 March 22, 2022 1:00am April 08, 2022 3:18pm OXcarbazepine 300 mg oral tablet (20 sources) Anti-epileptic Agent Start: End: take 1 tablet by mouth twice daily Oxcarbazepine 300 mg tablet Discontinued 300 mg PO TWICE A DAY October 07, 2021 12:00am November 24, 2021 3:34pm Start: 06-29-2021 End: 08-05-2021 Oxcarbazepine 300 mg tablet Discontinued June 29, 2021 12:00am August 05, 2021 7:00pm Start: 06-29-2021 End: 08-05-2021 Oxcarbazepine Discontinued 2021 11:00pm August 05, 2021 6:00pm Start: 07-10-2020 End: 08-21-2020 take 1 tablet by mouth once daily, then take 1 tablet by mouth twice daily Oxcarbazepine 300 mg tablet Discontinued 0 .ROUTE .COMPLEX 60 2 July 10, 2020 12:00am August 21, 2020 3:37pm 1 tablet po daily for one week then 1 tablet BID thereafter Start: 07-10-2020 End: 08-21-2020 oxyCODONE hydrochloride 5 mg oral tablet (20 sources) Opioid Agonist Start: 10-16-2021 End: 11-24-2021 take 1 tablet by mouth every six hours as needed for pain Oxycodone 5 mg tablet Discontinued 5 mg PO EVERY 6 HOURS as needed for pain 10 3 0 October 16, 2021 November 24, 2021 3:34pm Pain of left upper extremity Pain in left arm Start: 10-07-2021 End: 11-24-2021 take 1 capsule by mouth every eight hours as needed Oxycodone 5 mg capsule Discontinued 5 mg PO Q8H as needed 0 October 07, 2021 12:00am November 24, 2021 3:34pm Start: 09-28-2021 End: 10-01-2021 take 1 tablet by mouth every eight hours as needed for pain oxyCODONE IR (ROXICODONE) 5 mg immediate release tablet Indications: S/P CABG x 3 , S/P chest tube placement (HCC) Take 1 tablet by mouth every 8 hours as needed for pain for up to 3 days. 9 tablet 0 09/28/2021 10/01/2021 Active Comment on above: Take 1 tablet by clive every 8 hours as needed for pain for up to 3 days. Problems Active Problems Problem Classification Problem Date Documented Da te Episodic/Chronic Abdominal hernia (20 sources) Incisional hernia; Translations: [Incisional hernia without obstruction or gangrene] Episodic Abdominal pain (20 sources) Upper abdominal pain; Translations: [Upper abdominal pain, unspecified] Episodic Acute cerebrovascular disease (20 sources) Cerebrovascular accident; Translations: [Cerebral infarction, unspecified] Onset: Chronic Comment on above: MCA Infarct, 2019 Acute posthemorrhagic anemia (3 sources) Acute posthemorrhagic anemia; Translations: [Acute posthemorrhagic anemia] Episodic Adjustment disorders (7 sources) Adjustment disorder with mixed anxiety and depressed mood; Translations: [Adjustment disorder with mixed anxiety and depressed mood] 12-09-2022 Chronic Administrative/social admission (7 sources) Persons encountering health services in other specified circumstances; Translations: [Other reasons for seeking consultation] Episodic Alcohol-related disorders (6 sources) Alcohol abuse 01-11-2023 Chronic Anxiety disorders (20 sources) Anxiety; Translations: [Anxiety disorder, unspecified] 11-24-2022 Chronic Cardiac dysrhythmias (20 sources) Paroxysmal atrial fibrillation; Translations: [Paroxysmal atrial fibrillation] Onset: 5 Chronic Cardiac dysrhythmias (1 source) Cardiac dysrhythmias Onset: 8 Chronic obstructive pulmonary disease and bronchiectasis (9 sources) Chronic obstructive lung disease; Translations: [Chronic obstructive pulmonary disease, unspecified] Chronic Chronic obstructive pulmonary disease and bronchiectasis (5 sources) Bronchitis; Translations: [Bronchitis, not specified as acute or chronic] Onset: 5 Episodic Complications of surgical procedures or medical care (20 sources) Atrial fibrillation; Translations: [Other postprocedural complications and disorders of the circulatory system, not elsewhere classified] Onset: 5 Episodic Conditions associated with dizziness or vertigo (20 sources) Dizziness of unknown cause; Translations: [Dizziness and giddiness] 07-07-2021 Episodic Coronary atherosclerosis and other heart disease (20 sources) Coronary atherosclerosis; Translations: [Atherosclerotic heart disease of [place] coronary artery with other forms of angina pectoris] Onset: 2 Chronic Comment on above: 3.0 X 32 mm Synergy ZOLTAN to mid LAD; 2.5 x 16 MM Synergy ZOLTAN to second diagonal per Dr. Doherty @ [facility] 3.0 X 32 mm Synergy ZOLTAN to mid LAD; 2.5 x 16 MM Synergy ZOLTAN to second diagonal per Dr. Doherty @ [facility]. Status post CABG x 3 at [facility] 09/21/2021 Deficiency and other anemia (20 sources) Anemia; Translations: [Anemia, unspecified] 12-17-2021 Episodic Deficiency and other anemia (10 sources) Anemia, unspecified; Translations: [Anemia, unspecified] Episodic Diabetes mellitus without complication (10 sources) Prediabetes 03-13-2023 Episodic Diabetes mellitus without complication (1 source) Diabetes mellitus without complication Onset: 8 Disorders of lipid metabolism (20 sources) Mixed hyperlipidemia; Translations: [Mixed hyperlipidemia] Onset: 3 05-12-2020 Chronic E Codes: Fall (13 sources) Fall from ladder; Translations: [Fall on and from ladder, initial encounter] 09-06-2022 Episodic Epilepsy; convulsions (20 sources) Epilepsy; Translations: [Epilepsy, unspecified, not intractable, without status epilepticus] Onset: 3 Chronic Epilepsy; convulsions (20 sources) Seizure; Translations: [Unspecified convulsions] Onset: 1 05-12-2020 Episodic Comment on above: ON MEDS, LAST SEIZUR E 3 WEEKS AGO, SIGNS OF PETITI MAL, HALLUCINATES WITH SEIZURES Esophageal disorders (14 sources) Gastroesophageal reflux disease 01-11-2023 Chronic Fluid and electrolyte disorders (20 sources) Hypokalemia; Translations: [Hypokalemia] 01-29-2021 Episodic Genitourinary symptoms and ill-defined conditions (2 sources) Hemoglobinuria; Translations: [Hemoglobinuria] Episodic Headache; including migraine (20 sources) Headache; Translations: [Headache] 01-29-2021 Episodic Hyperplasia of prostate (20 sources) Benign prostatic hypertrophy with outflow obstruction; Translations: [Benign prostatic hyperplasia with lower urinary tract symptoms] Onset: 2 Chronic Influenza (17 sources) Influenza due to Influenza A virus; Translations: [Influenza due to other identified influenza virus with other respiratory manifestations] 03-30-2022 Episodic Intracranial injury (14 sources) Traumatic brain injury 01-11-2023 Episodic Menopausal disorders (1 source) Hormone replacement therapy; Translations: [Hormone replacement therapy] Onset: 5 Episodic Mood disorders (10 sources) Recurrent major depression 01-11-2023 Chronic Mycoses (8 sources) Pityriasis versicolor 05-05-2023 Episodic Nausea and vomiting (16 sources) Nausea and vomiting; Translations: [Nausea with vomiting, unspecified] 04-18-2022 Episodic Non-Hodgkin`s lymphoma (13 sources) Malignant lymphoma - small lymphocytic; Translations: [Small cell B-cell lymphoma, unspecified site] Onset: 4 03-19-2024 Chronic Nonspecific chest pain (20 sources) Chest pain; Translations: [Chest pain, unspecified] Episodic Nutritional deficiencies (20 sources) Deficiency of macronutrients; Translations: [Unspecified severe protein-calorie malnutrition] Onset: 2 09-28-2021 Chronic Nutritional deficiencies (20 sources) Cachexia; Translations: [Folic acid deficiency] Onset: 3 01-11-2023 Episodic Occlusion or stenosis of precerebral arteries (10 sources) Carotid artery stenosis 03-11-2023 Chronic Open wounds of head; neck; and trunk (20 sources) Tear of skin; Translations: [Skin tear] 09-06-2022 Episodic Other aftercare (5 sources) Surgical follow-up 03-07-2024 Episodic Other aftercare (1 source) FPC (current) use of aspirin; Translations: [tenter (current) use of aspirin] Onset: 5 Episodic Other aftercare (1 source) FPC (current) use of antithrombotics/antipl atelets; Translations: [FPC (current) use of antithrombotics/antipl atelets] Onset: 5 Episodic Other aftercare (1 source) Other brewing technician (current) drug therapy; Translations: [Other halfway (current) drug therapy] Onset: 5 Episodic Other aftercare (1 source) Encounter for therapeutic drug level monitoring; Translations: [Encounter for therapeutic drug level monitoring] Onset: 5 Episodic Other and ill-defined cerebrovascular disease (20 sources) Cerebrovascular disease; Translations: [Cerebrovascular disease, unspecified] 12-17-2021 Chronic Other and ill-defined cerebrovascular disease (20 sources) Cerebrovascular disease, unspecified; Translations: [Unspecified cerebrovascular disease] Chronic Other and ill-defined heart disease (20 sources) Left ventricular cardiac dysfunction; Translations: [Heart disease, unspecified] Onset: 4 05-12-2020 Chronic Other and ill-defined heart disease (20 sources) Atrial septal aneurysm; Translations: [Aneurysm of heart] Onset: 4 05-12-2020 Chronic Other and ill-defined heart disease (1 source) Aneurysm of heart; Translations: [Aneurysm of heart (wall)] Chronic Other and unspecified benign neoplasm (9 sources) Lipoma (clinical) 04-07-2023 Episodic Other bone disease and musculoskeletal deformities (8 sources) Costal chondritis 09-08-2023 Episodic Other circulatory disease (4 sources) Disorder of artery; Translations: [Disorder of arteries and arterioles, unspecified] Chronic Other circulatory disease (20 sources) Orthostatic hypotension; Translations: [Orthostatic hypotension] 07-07-2021 Episodic Other circulatory disease (20 sources) H/O: atrial fibrillation; Translations: [Personal history of other diseases of the circulatory system] 10-26-2021 Episodic Other circulatory disease (20 sources) H/O: heart disorder; Translations: [Personal history of other diseases of the circulatory system] 10-26-2021 Episodic Other circulatory disease (1 source) Personal history of other diseases of the circulatory system; Translations: [Personal history of other diseases of circulatory system] Episodic Other circulatory disease (20 sources) History of cerebrovascular accident; Translations: [Personal history of transient ischemic attack (TIA), and cerebral infarction without residual deficits] 04-18-2022 Episodic Other circulatory disease (1 source) Personal history of transient ischemic attack (TIA), and cerebral infarction without residual deficits; Translations: [Personal history of transient ischemic attack (TIA), and cerebral infarction without residual deficits] Episodic Other circulatory disease (7 sources) History of cerebellar stroke; Translations: [Personal history of transient ischemic attack (TIA), and cerebral infarction without residual deficits] 12-09-2022 Episodic Other circulatory disease (8 sources) History of cerebrovascular accident with residual deficit 10-13-2023 Episodic Other connective tissue disease (20 sources) Pain in left arm; Translations: [Pain in left arm] 10-24-2021 Episodic Other connective tissue disease (20 sources) Pain in upper limb; Translations: [Pain in arm, unspecified] 10-24-2021 Episodic Other connective tissue disease (1 source) Pain in left arm; Translations: [Pain in limb] Episodic Other connective tissue disease (1 source) Pain in arm, unspecified; Translations: [Pain in limb] Episodic Other gastrointestinal disorders (20 sources) Diarrhea; Translations: [Diarrhea, unspecified] Onset: 05-12-2020 Episodic Other gastrointestinal disorders (8 sources) Constipation 09-08-2023 Episodic Other hereditary and degenerative nervous system conditions (20 sources) Essential tremor; Translations: [Essential tremor] 03-22-2022 Chronic Other hereditary and degenerative nervous system conditions (20 sources) Essential tremor; Translations: [Essential and other specified forms of tremor] Chronic Other injuries and conditions due to external causes (19 sources) Subcutaneous emphysema; Translations: [Traumatic subcutaneous emphysema, initial encounter] 02-13-2022 Episodic Other injuries and conditions due to external causes (13 sources) Injury of head; Translations: [Unspecified injury of head, initial encounter] 09-06-2022 Episodic Other injuries and conditions due to external causes (1 source) History of falling; Translations: [History of falling] Onset: 5 Episodic Other lower respiratory disease (20 sources) Nodule of lung; Translations: [Solitary pulmonary nodule] 10-04-2022 Episodic Other lower respiratory disease (11 sources) Solitary pulmonary nodule; Translations: [Solitary pulmonary nodule] Onset: 5 11-02-2022 Episodic Other lower respiratory disease (14 sources) Multiple nodules of lung 01-11-2023 Episodic Other lower respiratory disease (2 sources) Cough; Translations: [Cough] 04-05-2024 Episodic Other lower respiratory disease (4 sources) Solitary nodule of lung; Translations: [Solitary pulmonary nodule] 07-18-2024 Episodic Other nervous system disorders (10 sources) Disorder of brain; Translations: [Encephalopathy, unspecified] 11-01-2022 Chronic Other nervous system disorders (7 sources) Encephalopathy, unspecified; Translations: [Encephalopathy, unspecified] 11-02-2022 Chronic Other nervous system disorders (14 sources) Impaired cognition 01-11-2023 Episodic Other nervous system disorders (20 sources) Tremor; Translations: [Tremor, unspecified] Onset: 3 01-11-2023 Episodic Other nervous system disorders (4 sources) H/O: epilepsy; Translations: [Personal history of other diseases of the nervous system and sense organs] 02-27-2023 Episodic Other nervous system disorders (1 source) Postoperative pain ; Translations: [Other acute postprocedural pain] Onset: 4 Episodic Other nutritional; endocrine; and metabolic disorders (20 sources) Unexplained weight loss ; Translations: [Abnormal weight loss] 01-29-2021 Episodic Other nutritional; endocrine; and metabolic disorders (14 sources) Weight loss; Translations: [Abnormal weight loss] 04-08-2022 Episodic Other nutritional; endocrine; and metabolic disorders (3 sources) Abnormal weight loss; Translations: [Loss of weight] Episodic Other nutritional; endocrine; and metabolic disorders (2 sources) Weight decreased; Translations: [Abnormal weight loss] 04-08-2022 Episodic Other upper respiratory infections (5 sources) Chronic sinusitis; Translations: [Chronic sinusitis, unspecified] Onset: 5 Chronic Parkinson`s disease (11 sources) Parkinsonism; Translations: [Parkinson's disease] 10-20-2022 Chronic Peripheral and visceral atherosclerosis (10 sources) Peripheral vascular disease 03-11-2023 Chronic Pleurisy; pneumothorax; pulmonary collapse (20 sources) Pleural effusion; Translations: [Pleural effusion, not elsewhere classified] 11-07-2021 Episodic Poisoning by nonmedicinal substances (14 sources) Bee sting-induced anaphylaxis 01-11-2023 Episodic Residual codes; unclassified (20 sources) Altered mental status; Translations: [Altered mental status, unspecified] 04-06-2020 Episodic Residual codes; unclassified (18 sources) History of clinical finding in subject; Translations: [Personal history of other specified conditions] 04-19-2022 Episodic Residual codes; unclassified (14 sources) Denture present 01-11-2023 Episodic Residual codes; unclassified (14 sources) Screening due 01-11-2023 Episodic Residual codes; unclassified (8 sources) Insomnia 05-05-2023 Episodic Residual codes; unclassified (4 sources) Personal history of other specified conditions; Translations: [History of seizure] 04-19-2022 Episodic Skull and face fractures (20 sources) Unspecified fracture of facial bones, initial encounter for closed fracture; Translations: [Fracture of facial bone] Onset: Episodic Spondylosis; intervertebral disc disorders; other back problems (20 sources) Low back pain; Translations: [Low back pain] Episodic Substance-related disorders (20 sources) Nicotine dependence; Translations: [Nicotine dependence, unspecified, uncomplicated] Onset: 2 09-28-2021 Chronic Superficial injury; contusion (20 sources) Contusion of back; Translations: [Contusion of unspecified back wall of thorax, initial encounter] 07-12-2021 Episodic Thyroid disorders (2 sources) Hypothyroidism 08-31-2024 Chronic Unclassified (1 source) Visual hallucinations / R44.1(ICD-10) Onset: 8 Unclassified (2 sources) Unspecified convulsions / R56.9(ICD-10) Onset: 8 Unclassified (1 source) Moderate protein-calorie malnutrition / E44.0(ICD-10) Onset: 8 Unclassified (1 source) Other specified disorders of brain / G93.89(ICD-10) Onset: 8 Unclassified (1 source) Elevated white blood cell count, unspecified / D72.829(ICD-10) Onset: 8 Unclassified (1 source) Nicotine dependence, cigarettes, uncomplicated / F17.210(ICD-10) Onset: 8 Unclassified (1 source) Cerebral infarction, unspecified / I63.9(ICD-10) Onset: 8 Unclassified (1 source) Body mass index (BMI) 21.0-21.9, adult / Z68.21(ICD-10) Onset: 8 Unclassified (1 source) Tremor, unspecified / R25.1(ICD-10) Onset: 8 Unclassified (1 source) Unspecified right bundle-branch block / I45.10(ICD-10) Onset: 8 Unclassified (1 source) Old myocardial infarction / I25.2(ICD-10) Onset: 8 Unclassified (1 source) Prsnl hx of TIA (TIA), and cereb infrc w/o resid deficits / Z86.73(ICD-10) Onset: 8 Unclassified (1 source) Unspecified fall, initial encounter / W19.XXXA(ICD-10) Onset: 8 Unclassified (1 source) Civilian activity done for income or pay / Y99.0(ICD-10) Onset: 8 Unclassified (2 sources) Altered mental status, unspecified / R41.82(ICD-9) Onset: 8 Unclassified (1 source) Hyperglycemia, unspecified / R73.9(ICD-9) Onset: 8 Unclassified (1 source) Elevated white blood cell count, unspecified / D72.829(ICD-9) Onset: 8 Unclassified (1 source) Unspecified convulsions / R56.9(ICD-9) Onset: 8 Unclassified (1 source) Nicotine dependence, unspecified, uncomplicated / F17.200(ICD-9) Onset: 8 Unclassified (1 source) Hallucinations, unspecified / R44.3(ICD-9) Onset: 8 Unclassified (1 source) Drug therapy finding 01-11-2023 Unclassified (9 sources) Hypercoagulable state due to atrial fibrillation 01-11-2023 Unclassified (13 sources) Medication refused 02-28-2023 Unclassified (8 sources) Blood clot (morphologic abnormality) 04-21-2023 Comment on above: neck and arm dissovl ed Unclassified (16 sources) Patient encounter status 05-05-2023 Unclassified (1 source) Encounter for screening for COVID-19; Translations: [Encounter for screening for COVID-19] Onset: 5 Urinary tract infections (2 sources) Urinary tract infectious disease; Translations: [Urinary tract infection, site not specified] Onset: 5 Episodic Past or Other Problems Problem Classification Problem Date Documented Date Episodic/Chronic Coronary atherosclerosis and other heart disease (20 sources) Stented coronary artery; Translations: [Presence of coronary angioplasty implant and graft] Onset: 8 Episodic Comment on above: 3.0 X 32 mm Synergy ZOLTAN to mid LAD; 2.5 x 16 MM Synergy ZOLTAN to second diagonal per Dr. Doherty @ [facility] Lymphadenitis (2 sources) Localized enlarged lymph nodes; Translations: [Localized enlarged lymph nodes] Onset: 4 Episodic Other nervous system disorders (4 sources) Other symptoms and signs involving cognitive functions and awareness; Translations: [Other symptoms and signs involving cognitive functions and awareness] Onset: 3 Episodic Other screening for suspected conditions (not mental disorders or infectious disease) (20 sources) Patient encounter status; Translations: [Encounter for screening for malignant neoplasm of colon] Onset: 1 05-12-2020 Episodic Residual codes; unclassified (20 sources) Tobacco user; Translations: [Tobacco use] Onset: 1 05-12-2020 Episodic Residual codes; unclassified (20 sources) History of cardiac catheterization; Translations: [Other specified postprocedural states] Onset: 2 05-27-2021 Episodic Comment on above: LEFT MAIN: Angiograp hically normal; LEFT ANTERIOR DESCENDING ARTERY:PROX LAD: Mild luminal irregularities, near the origin of the stent: eccentric: 75 % StenosisMID LAD: Previously placed stent is patentDIAGONAL 1: Ostial - large vessel: ostial: jailed by the stent / subtotally occluded; DIAGONAL 2: Proximal - Previously placed stent is patent; CIRCUMFLEX ARTERY: Angiographically normal; RIGHT CORONARY ARTERY: Mild luminal irregularities; AORTIC ROOT: Angiographically normal; RECOMMENDATIONS: Surgery consult for coronary revascularization per cardiac cath 05/27/21 Syncope (20 sources) Syncope and collapse; Translations: [Syncope and collapse] Onset: 5 Episodic Unclassified (2 sources) Altered mental status, unspecified; Translations: [Hallucinations, unspecified] Onset: 8 Episodic Unclassified (1 source) Unspecified convulsions; Translations: [Unspecified convulsions] Onset: 8 Results Test Name Value Interpretation Reference Range Facility Absolute lymphocyte countOrd ered By: Rita Mathew on 10-18-2024 Lymphocytes Auto (Unsp spec) [#/Vol] 7.06 10*3/uL High 0.83-4.51 [facility] Absolute neutrophil countOrd ered By: Rita Mathew on 10-18-2024 Neutrophils (Bld) [#/Vol] 3.5 10*3/uL 2.0-7.7 [facility] Anion gap in Serum or Plasma [facility] 10-18-2024 Anion gap [Moles/Vol] 10 mmol/L 5-15 [facility] Automated lymphocyte count a s percentage of total leukocytesOrdered By: Rita Mathew on 10-18-2024 Lymphocytes/100 WBC Auto (Unsp spec) 53.4 % High 19-41 [facility] BUN/creatinine ratioOrdered By: [facility] on 10-18-2024 Urea nitrogen/Creatinine [Mass ratio] 23.5 mg/mg High 10-20 [facility] Basophil percentageOrdered B y: Rita Mathew on 10-18-2024 Basophils/100 WBC (Bld) 0.2 % 0-1 [facility] Bilirubin, totalOrdered By: [facility] on 10-18-2024 Bilirubin [Mass/Vol] 0.16 mg/dL 0.00-1.30 [facility] Blood manual differential co mment interpretation (narrative result)Ordered By: Rita Mathew on 10-18-2024 Manual differential comment Bari (Bld) [Interp] COMMENT [facility] Comment on above: LYMPHOCYTOSIS.MONOCY TOSIS. CBC W/Diff, Automatedon 07- SMEAR COMMENT COMMENT Normal [facility] Comment on above: Result Comment: LYMP HOCYTOSIS. MONOCYTOSIS. Performed By: #### L 504.2610, L500.4050, L100.0100 #### [facility] [address] [place], [address] ATYPICAL LYMPH 1+ Normal [facility] Comment on above: Performed By: #### L 504.2610, L500.4050, L100.0100 #### [facility] [address] [place], [address] Carbon dioxide, total [Moles /volume] in Central venous bloodOrdered By: Rita Mathew on 10-18-2024 CO2 [Moles/Vol] 24.6 mmol/L 21.0-32.0 [facility] Chloride assayOrdered By: Shahzad Mathew on 10-18-2024 Chloride [Moles/Vol] 106 mmol/L 98-108 [facility] Comprehensive Metabolic Prof ilon 10-18-2024 Albumin [Mass/Vol] 3.8 g/dL Normal 3.4-4.8 [facility] Comment on above: Performed By: #### L 504.2610, L500.4050, L100.0100 ####[facility] [address] [place], [address] Albumin/Globulin [Mass ratio] 1.4 {ratio} Normal 0.9-2.4 [facility] Comment on above: Performed By: #### L 504.2610, L500.4050, L100.0100 ####[facility] [address] [place], [address] ALK PHOS 105 U/L Normal 40-129 [facility] Comment on above: Performed By: #### L 504.2610, L500.4050, L100.0100 ####[facility] [address] [place], [address] ALT [Catalytic activity/Vol] 44 U/L Normal <=46 [facility] Comment on above: Performed By: #### L 504.2610, L500.4050, L100.0100 ####[facility] [address] [place], [address] AST [Catalytic activity/Vol] 42 U/L High <=37 [facility] Comment on above: Performed By: #### L 504.2610, L500.4050, L100.0100 ####[facility] [address] [place], [address] Bilirubin [Mass/Vol] 0.16 mg/dL Normal 0.00-1.30 [facility] Comment on above: Performed By: #### L 504.2610, L500.4050, L100.0100 ####[facility] [address] [place], [address] BUN/CRE 23.5 RATIO High 10-20 [facility] Comment on above: Performed By: #### L 504.2610, L500.4050, L100.0100 ####[facility] [address] [place], [address] Calcium [Mass/Vol] 8.9 mg/dL Normal 7.6-11.0 [facility] Comment on above: Performed By: #### L 504.2610, L500.4050, L100.0100 ####[facility] [address] [place], [address] Chloride [Moles/Vol] 106 mmol/L Normal 98-108 [facility] Comment on above: Performed By: #### L 504.2610, L500.4050, L100.0100 ####[facility] [address] [place], [address] CO2 [Moles/Vol] 24.6 mmol/L Normal 21.0-32.0 [facility] Comment on above: Performed By: #### L 504.2610, L500.4050, L100.0100 ####[facility] [address] [place], [address] Creatinine [Mass/Vol] 0.96 mg/dL Normal 0.70-1.20 [facility] Comment on above: Performed By: #### L 504.2610, L500.4050, L100.0100 ####[facility] [address] [place], [address] ECRCL 64.43 ml/min Normal 50-250 [facility] Comment on above: Performed By: #### L 504.2610, L500.4050, L100.0100 ####[facility] [address] [place], [address] GAP 10 Normal 5-15 [facility] Comment on above: Performed By: #### L 504.2610, L500.4050, L100.0100 ####[facility] [address] [place], [address] GFR/1.73 sq M.predicted among non-blacks MDRD (S/P/Bld) [Vol rate/Area] 86 mL/min/{1.73_m2} Normal >60 [facility] Comment on above: Result Comment: mL/m in/1.73m2 CKD-EPI Creatinine Equation (2020) Performed By: #### L 504.2610, L500.4050, L100.0100 ####[facility] [address] [place], [address] Globulin (S) [Mass/Vol] 2.8 g/dL Normal 2.2-4.2 [facility] Comment on above: Performed By: #### L 504.2610, L500.4050, L100.0100 ####[facility] [address] [place], [address] Glucose [Mass/Vol] 101 mg/dL High 70-99 [facility] Comment on above: Performed By: #### L 504.2610, L500.4050, L100.0100 ####[facility] [address] [place], [address] Potassium [Moles/Vol] 4.0 mmol/L Normal 3.3-5.1 [facility] Comment on above: Performed By: #### L 504.2610, L500.4050, L100.0100 ####[facility] [address] [place], [address] Sodium [Moles/Vol] 140 mmol/L Normal 133-145 [facility] Comment on above: Performed By: #### L 504.2610, L500.4050, L100.0100 ####[facility] [address] [place], [address] T PROT 6.5 g/dL Normal 5.9-8.4 [facility] Comment on above: Performed By: #### L 504.2610, L500.4050, L100.0100 ####[facility] [address] [place], [address] Urea nitrogen [Mass/Vol] 22 mg/dL High 4-19 [facility] Comment on above: Performed By: #### L 504.2610, L500.4050, L100.0100 ####[facility] [address] [place], [address] Eosinophil percentageOrdered By: Rita Mathew on 10-18-2024 Eosinophils/100 WBC (Bld) 8.2 % High 0-5 [facility] Erythrocyte distribution wid th ratioOrdered By: Rita Mathew on 10-18-2024 Erythrocyte distribution width (RBC) [Ratio] 13.1 % 11.6-14.6 [facility] Erythrocyte distribution wid th standard deviationOrdered By: Rita Mathew on 10-18-2024 Erythrocyte distribution width (RBC) [Ratio] 48.0 fl High 35.1-43.9 [facility] Glomerular filtration rate ( GFR) estimation/1.73 sq m using serum, plasma, or whole bOrdered By: Rita Mathew on 10-18-2024 GFR/1.73 sq M.predicted among non-blacks MDRD (S/P/Bld) [Vol rate/Area] 86 mL/min/{1.73_m2} >60 [facility] Comment on above: mL/min/1.73m2 CKD-EP I Creatinine Equation (2020) Hematocrit Auto (Bld) [Volum e fraction]Ordered By: Rita Mathew on 10-18-2024 Hematocrit (Bld) [Volume fraction] 37.9 % Low 40-54 [facility] Hemoglobin measurementOrdere d By: Rita Mathew on 10-18-2024 Hemoglobin (Bld) [Mass/Vol] 12.9 g/dL Low 13.0-16.5 [facility] Immature granulocytes/100 WB C Auto (Bld)Ordered By: Rita Mathew on 10-18-2024 Immature granulocytes/100 WBC (Bld) 0.200 % 0.0-0.9 [facility] Comment on above: IG% - Immature Granu locytes (promyelocytes, myelocytes and metamyelocytes) > 1% indicates that a LEFT SHIFT is Present. LDHon 10-18-2024 LDH 152 U/L Normal 87-241 [facility] Comment on above: Order Comment: 1 Performed By: #### L 504.2610, L500.4050, L100.0100 ####[facility] [address] [place], [place], [id number] Laboratory - Chemistry and C hemistry - challengeOrdered By: Rita Mathew on 10-18-2024 AST [Catalytic activity/Vol] 42 U/L High <38 [facility] Lactate dehydrogenase (LDH) measurementOrdered By: Rita Mathew on 10-18-2024 LDH [Catalytic activity/Vol] 152 U/L 87-241 [facility] MCV (mean corpuscular volume ) determinationOrdered By: Rita Mathew on 10-18-2024 MCV (RBC) [Entitic vol] 99.5 fL High 80-94 [facility] Mean corpuscular hemoglobin (MCH) determinationOrdered By: Rita Mathew on 10-18-2024 MCH (RBC) [Entitic mass] 33.9 pg High 27.0-32.0 [facility] Mean corpuscular hemoglobin concentration (MCHC) determinationOrdered By: Rita Mathew on 10-18-2024 MCHC (RBC) [Mass/Vol] 34.0 g/dL 32-36 [facility] Mean platelet volume determi nationOrdered By: Rita Mathew on 10-18-2024 Platelet mean volume (Bld) [Entitic vol] 10.0 fL 6.2-12.0 [facility] Monocyte percentageOrdered B y: Rita Mathew on 10-18-2024 Monocytes/100 WBC (Bld) 11.8 % High 0-10 [facility] Neutrophil percentageOrdered By: [facility] on 10-18-2024 Neutrophils/100 WBC (Bld) 26.2 % Low 47-70 [facility] Nucleated red blood cell per centageOrdered By: [facility] on 10-18-2024 Nucleated RBC/100 WBC (Bld) [Ratio] 0 % 0-5 [facility] Oncology Visit Reporton 10-02 Oncology Visit Report [facility] [address] [place] [address] OFFICE VISIT Date of Service: 10/18/24 1324 MR#: [id number] Acct: [id number] Name: RADHA BRENNAN Rep #: [id number] : 1955 From: Aide Mcdonnell NP CABLE REELER RadhaC Age/Sex: 69/M [place] [facility] [place]: Signed HPI Subjective Date of Service 10/18/24 Chief Complaint Lymphoma History of Present Illness 69-year-old male who presented with a few months history of progressively enlarging painless lymph nodes first noted in the groins then the axillae and finally the neck. No B symptoms. 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 Flow cytometry was performed consistent with the above diagnosis. March 20, 2024 PET/CT: IMPRESSION: 1. Increased radiopharmaceutical concentration defined in the bilateral axilla, right retropectoral region, right and left thoracic perihilum, and left inguinal region fulfill quantitative criteria for viable neoplasm. (Mikel et al, Journal of Clinical Oncology, 32: 3059, 2014). 2. Overall, compared to the prior FDG-PET CT study dated 02/15/2023, there is interim development of defined viable neoplastic disease. Interval History The patient is presenting to clinic today for routine 3-month follow-up. He denies any concerns related to today's visit. Notes he has lost some weight but believes it is related to sweating a lot in the 90 heat. Otherwise, he denies night sweats, dysphagia, abdominal pain, overt bleeding/abnormal bruising, and swelling or pain of his extremities. Patient reports enlarged lymph nodes within bilateral axilla and groin are unchanged in size and remain nontender. [facility] Medical History Small lymphocytic lymphoma Prediabetes Lung nodules Iron deficiency Insomnia Folic acid deficiency Costochondritis Cognitive impairment Cachexia GERD (gastroesophageal reflux disease) Small cell B-cell lymphoma Wears dentures Wears glasses Depression Alcohol use High cholesterol Excessive bleeding Migraine headache Injury of head and neck Parkinson's disease Tremor Gastric reflux Smoker Normal stress echocardiogram History of echocardiogram Hypertension Cardiology follow-up encounter History of heart attack Scalp wound Scalp pain Complex laceration of scalp Fall from ladder Postoperative atrial fibrillation History of left heart catheterization (LHC) ( 05/27/21) Heart valve problem Syncope and collapse Seizure Hyperlipidemia 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 Chronic back pain Atrial septal aneurysm Abnormal electrocardiogram CVA (cerebral vascular accident) Nicotine dependence Surgical History History of cardiac catheterization Hx of neck surgery History of coronary artery bypass surgery ( 09/21/21) S/P triple vessel bypass Stented coronary artery (10/06/17) History of lumbar puncture ( 04/2017) finger surgery lymph node resection Family History Mother Myocardial infarction Cancer Diabetes COPD (chronic obstructive pulmonary disease) Brother Myocardial infarction Cancer Diabetes Sister Cancer Diabetes Heart disease Father Lung cancer Social History household members: family Smoking Status: Heavy Smoker (>10/day) Tobacco: How many years used: 61 Electronic Cigarette Use: not used second hand exposure: Yes alcohol intake: former year quit: 2014 details: Patient reduced his alcohol intake when 'his lady passed in 2014' substance use type: does not use caffeine: Yes Type: carbonated beverages and coffee ROS ROS Narrative Negative except as documented in the interval HPI Intake Vital Signs 07/10/24 07:52 10/18/24 13:25 10/18/24 13:35 Height 5 ft 8.5 in 5 ft 8.5 in 5 ft 8.5 in Weight: 135 lb 7 oz BMI 20.2 BP 106/63 Blood Pressure Location Lt brachial Position Sitting Respiration 16 Pulse 45 L Pulse Source Monitor Temp 98.0 F Temperature Source Temporal Artery Pulse Oximetry (%) 100 Oxygen Delivery Method room air Intake Is patient in pain?: No Allergies bee venom protein (honey bee) Allergy (Severe, Verified 10/18/24 13:34) Anaphylaxis tuberculin, purified protein deriva Allergy (Severe, Verified 10/18/24 13:34) Swelling Medications ???Medication ???Instructions ???Recorded ???Confirmed ???Type acetaminophen 500 mg capsule 1,000 mg (2 x 500 mg) PO Q6H PRN 1 04/26/21 10/18/24 Rx pain #120 caps folic acid 1 mg tablet 1 mg PO DAILY supplement #90 tabs 03/30/22 10/18/24 Rx magnesium oxi (more content not included)... Normal [facility] Platelet countOrdered By: Shahzad Mathew on 10-18-2024 Platelets (Bld) [#/Vol] 221 10*3/uL 150-450 [facility] Potassium measurement (mass/ volume)Ordered By: Rita Mathew on 10-18-2024 Potassium (Unsp spec) [Mass/Vol] 4.0 mmol/L 3.3-5.1 [facility] RBC Auto (Bld) [#/Vol]Ordere d By: Rita Mathew on 10-18-2024 RBC (Bld) [#/Vol] 3.81 10*6/uL Low 4.6-6.2 [facility] Serum creatinine measurement (mass/volume)Ordered By: Rita Mathew on 10-18-2024 Creatinine [Mass/Vol] 0.96 mg/dL 0.70-1.20 [facility] Serum globulin measurementOr dered By: Rita Mathew on 10-18-2024 Globulin (S) [Mass/Vol] 2.8 g/dL 2.2-4.2 [facility] Serum glucose measurement (m ass/volume)Ordered By: Rita Mathew on 10-18-2024 Glucose [Mass/Vol] 101 mg/dL High 70-99 [facility] Serum or plasma alanine vieyra otransferase (ALT) measurementOrdered By: Rita Mathew on 10-18-2024 ALT [Catalytic activity/Vol] 44 U/L <47 [facility] Serum or plasma albumin sadi urement (mass/volume)Ordered By: Rita Mathew on 10-18-2024 Albumin [Mass/Vol] 3.8 g/dL 3.4-4.8 [facility] Serum or plasma albumin/glob ulin mass ratioOrdered By: Rita Mathew on 10-18-2024 Albumin/Globulin [Mass ratio] 1.4 {ratio} 0.9-2.4 [facility] Serum or plasma alkaline amber sphatase measurementOrdered By: Rita Mathew on 10-18-2024 ALP [Catalytic activity/Vol] 105 U/L 40-129 [facility] Serum or plasma calcium sadi urement (mass/volume)Ordered By: Rita Mathew on 10-18-2024 Calcium [Mass/Vol] 8.9 mg/dL 7.6-11.0 [facility] Serum or plasma urea nitroge n measurement (mass/volume)Ordered By: Rita Mathew on 10-18-2024 Urea nitrogen [Mass/Vol] 22 mg/dL High 4-19 [facility] Sodium levelOrdered By: Rhys Mathew on 10-18-2024 Sodium [Moles/Vol] 140 mmol/L 133-145 [facility] Total proteinOrdered By: Mihai Mathew on 10-18-2024 Protein [Mass/Vol] 6.5 g/dL 5.9-8.4 [facility] White blood cell (WBC) count Ordered By: Rita Mathew on 10-18-2024 WBC (Bld) [#/Vol] 13.2 10*3/uL High 4.4-11.0 [facility] Cardiology Visit Reporton Cardiology Visit Report [facility] [address] [place] [address] OFFICE VISIT Date of Service: 10/12/24 MR#: [id number] Acct: [id number] Name: RADHA BRENNAN Rep #: [id number] : 1955 Provider: DEYSI Davison Age/Sex: 69/M Location: [facility] Status: Signed Agree with assessment and plan as outlined. HPI HPI History of Present Illness Details: Radha Brennan is a 69-year-old male who presents to office today for follow-up for monitoring his cardiovascular health. Patient has a history of coronary artery disease status post PTCA/ZOLTAN to the mid LAD and proximal diagonal in October 2017, status post CABG at [facility] 09/21/2021 receiving RIBEIRO to the LAD, ELIEL to the diagonal branch 1, SVG to the diagonal branch 2. He has a history of mild global LV dysfunction, atrial septal aneurysm, hyperlipidemia, alcohol withdrawal seizures, tremors and tobacco abuse. After undergoing his coronary artery bypass surgery at [facility] in September 2021, he did require return to the OR for ongoing chest pain and it was noted that he had a small area of arterial bleed in the left chest. They achieved control of the bleeding and he was returned to the ICU. Postoperatively, he experienced a seizure x 15 minutes, he required a blood transfusion and he had an episode of atrial fibrillation. Postop day 4 he was noted to have a pleural effusion in the left lung requiring chest tube placement which was removed postop day 6. He was seen in the emergency department in October 2021 with left arm pain that demonstrated a left IJ vein partially compressible with the left cephalic vein at the elbow noncompressible and he remained with treatment of dual antiplatelet. He returned to the emergency room October 29, 2021 for chest discomfort. His cardiac enzymes were negative. He had a small left pleural effusion. In May 2023, patient presented to the emergency department for chest pain. Troponins were negative and BNP was not significant. Patient has been diagnosed with lymphocytic lymphoma and follows with oncology. Upon presentation today, patient reports fatigue that he describes as becoming tired when he sits to rest. If he keeps busy, he denies any concerns with his energy. He reports feeling wobbly at times. This is noticed 1-2 times per week. He noticed chest pain, mostly at the site of his incision from his CABG. This pain is most noticed at rest and is described as a stabbing pain into his chest. This has been ongoing since his operation. He becomes SOB with some of the jobs he does. He denies SOB with walking on a flat surface. His friends tell him he becomes SOB when he pushes himself too hard. Further ROS below. 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 Accompanied by: Self Is patient in pain?: No Allergies bee venom protein (honey bee) Allergy (Severe, Verified 10/12/24 14:43) Anaphylaxis tuberculin, purified protein deriva Allergy (Severe, Verified 10/12/24 14:43) Swelling Have you fallen in the past year?: Yes Nurse's Note: Patient does not know what medications he's taking [facility] Medical History Small lymphocytic lymphoma Prediabetes Lung nodules Iron deficiency Insomnia Folic acid deficiency Costochondritis Cognitive impairment Cachexia GERD (gastroesophageal reflux disease) Small cell B-cell lymphoma Wears dentures Wears glasses Depression Alcohol use High cholesterol Excessive bleeding Migraine headache Injury of head and neck Parkinson's disease Tremor Gastric reflux Smoker Normal stress echocardiogram History of echocardiogram Hypertension Cardiology follow-up encounter History of heart attack Scalp wound Scalp pain Complex laceration of scalp Fall from ladder Postoperative atrial fibrillation History of left heart catheterization (LHC) ( 05/27/21) Heart valve problem Syncope and collapse Seizure Hyperlipidemia 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 Chronic back pain Atrial septal aneurysm Abnormal electrocardiogram CVA (cerebral vascular accident) Nicotine dependence Surgical History History of cardiac catheterization Hx of neck surgery History of coronary artery bypass surgery ( 09/21/21) S/P triple vessel (more content not included)... Normal [facility] CT HEAD OR BRAIN W/O CONTRAS Ton 10-04-2024 CT HEAD OR BRAIN W/O CONTRAST ORIGINAL EXAMINATION: CT OF THE HEAD WITHOUT CONTRAST 10/04/2024 11:41 am TECHNIQUE: CT of the head was performed without the administration of intravenous contrast. Automated exposure control, iterative reconstruction, and/or weight based adjustment of the mA/kV was utilized to reduce the radiation dose to as low as reasonably achievable. COMPARISON: MRI brain 05/30/2024. HISTORY: ORDERING SYSTEM PROVIDED HISTORY: Reason for Exam: Head trauma, moderate-severe Head trauma, moderate-severe FINDINGS: BRAIN/VENTRICLES: There is no acute intracranial hemorrhage, mass effect or midline shift. No abnormal extra-axial fluid collection. 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 The ventricles and sulci are not significantly enlarged. ORBITS: The visualized portion of the orbits demonstrate no acute abnormality. SINUSES: The visualized paranasal sinuses and mastoid air cells demonstrate no acute abnormality. SOFT TISSUES/SKULL: No acute abnormality of the visualized skull or soft tissues. 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 No acute findings. Interpreted by: Clement James Preliminary Report By: Clement James Electronically signed By Clement James Dictated Date: 10/04/2024 11:48:28 AM Prelim Date: 10/04/2024 11:49:57 AM Sign Date: 10/04/2024 11:49:57 AM Ordering Provider: PARISH GRAFF Interpreted by: Clement James Preliminary Report By: Clement James Electronically signed By Clement James Dictated Date: 10/04/2024 11:48:28 AM Prelim Date: 10/04/2024 11:49:57 AM Sign Date: 10/04/2024 11:49:57 AM Ordering Provider: PARISH Fine [facility] .Auto Diffon 09-21-2024 Basophil, Absolute 0.1 10 3/mcL Normal 0.0-0.3 [facility] Comment on above: Performed By: #### C K, DIMER, LIP, MDW, TROPHS, CBC, CMP, ANEU, ADIFF, GFR ####[facility] [place], [place] [address] Basophils/100 WBC (Bld) 0.4 % Normal 0.0-2.5 [facility] Comment on above: Performed By: #### C K, DIMER, LIP, MDW, TROPHS, CBC, CMP, ANEU, ADIFF, GFR ####[facility] [place], [place] [address] Eosinophil, Absolute 0.7 10 3/mcL Normal 0.0-0.7 [facility] Comment on above: Performed By: #### C K, DIMER, LIP, MDW, TROPHS, CBC, CMP, ANEU, ADIFF, GFR ####[place] [id number] [place], [place] [address] Eosinophils/100 WBC (Bld) 5.0 % Normal 0.0-6.0 [facility] Comment on above: Performed By: #### C K, DIMER, LIP, MDW, TROPHS, CBC, CMP, ANEU, ADIFF, GFR ####[place] [id number] [place], [place] [address] Lymphocytes/100 WBC (Bld) 47.0 % High 20.0-40.0 [facility] Comment on above: Performed By: #### C K, DIMER, LIP, MDW, TROPHS, CBC, CMP, ANEU, ADIFF, GFR ####[facility] [place], [place] [address] Monocyte, Absolute 0.7 10 3/mcL Normal 0.1-1.4 [facility] Comment on above: Performed By: #### C K, DIMER, LIP, MDW, TROPHS, CBC, CMP, ANEU, ADIFF, GFR ####[facility] [place], [place] [address] Monocytes/100 WBC (Bld) 5.4 % Normal 2.0-13.0 [facility] Comment on above: Performed By: #### C K, DIMER, LIP, MDW, TROPHS, CBC, CMP, ANEU, ADIFF, GFR ####[place] [address] [place], [place] [address] Neutrophils/100 WBC (Bld) 42.2 % Low 50.0-75.0 [facility] Comment on above: Performed By: #### C K, DIMER, LIP, MDW, TROPHS, CBC, CMP, ANEU, ADIFF, GFR ####[facility] [place], [place] [address] Lymphocyte, Absolute 6.6 10 3/mcL High 0.9-4.3 [facility] Comment on above: Performed By: #### C K, DIMER, LIP, MDW, TROPHS, CBC, CMP, ANEU, ADIFF, GFR ####[facility] [place], [place] [address] .GFRon 09-21-2024 Estimated Glomerular Filtration Rate 88 ml/min/1.73sqm Normal [facility] Comment on above: Result Comment: Stages of Chronic Kidney Disease (CKD) Stage Description eGFR(ml/min/1.73 sq.m.) CKD 1 Normal kidney function or >=90 normal kindney function with possible kidney damage (ex. Proteinuria) CKD 2 Kidney damage with mild loss 60-89 of kidney function CKD 3a Mild to moderate loss of kidney 45-59 function CKD 3b Moderate to severe loss of 30-44 of kindey function CKD 4 Severe loss of kidney function 15-29 CKD 5 Kidney failure <15 Note: (go live 2024) the eGFR calculation was updated to the 2020 CKD-EPI creatinine equation without a race factor to calculate the eGFR results. Performed By: #### C K, DIMER, LIP, MDW, TROPHS, CBC, CMP, ANEU, ADIFF, GFR ####[place] [address] [place], [place] [address] .MDWon 09-21-2024 Monocyte Distribution Width 21.83 High 0.00-20.00 [facility] Comment on above: Result Comment: For adults in ED, MDW>20.0 may be associated with a higher risk of sepsis during the first 12hrs of hospital admission Performed By: #### C K, DIMER, LIP, MDW, TROPHS, CBC, CMP, ANEU, ADIFF, GFR ####[place] [address] .NEUABSon 09-21-2024 Neutrophil, Absolute 5.9 10 3/mcL Normal 2.3-8.1 [facility] Comment on above: Performed By: #### C K, DIMER, LIP, MDW, TROPHS, CBC, CMP, ANEU, ADIFF, GFR ####[place] [address] CBCon 09-21-2024 Erythrocyte distribution width (RBC) [Ratio] 13.6 % Normal 11.5-15.5 [facility] Comment on above: Performed By: #### C K, DIMER, LIP, MDW, TROPHS, CBC, CMP, ANEU, ADIFF, GFR ####[place] [address] Hematocrit (Bld) [Volume fraction] 38.0 % Low 40.0-52.0 [facility] Comment on above: Performed By: #### C K, DIMER, LIP, MDW, TROPHS, CBC, CMP, ANEU, ADIFF, GFR ####[place] [address] Hgb 12.7 G/dL Low 13.0-17.5 [facility] Comment on above: Performed By: #### C K, DIMER, LIP, MDW, TROPHS, CBC, CMP, ANEU, ADIFF, GFR ####[place] [address] MCH (RBC) [Entitic mass] 33.4 pg High 27.0-33.0 [facility] Comment on above: Performed By: #### C K, DIMER, LIP, MDW, TROPHS, CBC, CMP, ANEU, ADIFF, GFR ####[place] [address] [place], [place] [address] MCHC 33.4 G/dL Normal 32.0-36.0 [facility] Comment on above: Performed By: #### C K, DIMER, LIP, MDW, TROPHS, CBC, CMP, ANEU, ADIFF, GFR ####[place] [address] [place] [id number] MCV (RBC) [Entitic vol] 99.9 fL Normal 81.0-100.0 [facility] Comment on above: Performed By: #### C K, DIMER, LIP, MDW, TROPHS, CBC, CMP, ANEU, ADIFF, GFR ####[place] [address] [place] [id number] Platelet 204 10 3/mcL Normal 150-450 [facility] Comment on above: Performed By: #### C K, DIMER, LIP, MDW, TROPHS, CBC, CMP, ANEU, ADIFF, GFR ####[place] [address] [place] [id number] Platelet mean volume (Bld) [Entitic vol] 8.3 fL Normal 6.4-10.5 [facility] Comment on above: Performed By: #### C K, DIMER, LIP, MDW, TROPHS, CBC, CMP, ANEU, ADIFF, GFR ####[place] [address] [place] [id number] RBC 3.80 10 6/mcL Low 4.50-6.00 [facility] Comment on above: Performed By: #### C K, DIMER, LIP, MDW, TROPHS, CBC, CMP, ANEU, ADIFF, GFR ####[place] [address] [place] [id number] WBC 14.0 10 3/mcL High 4.5-10.8 [facility] Comment on above: Performed By: #### C K, DIMER, LIP, MDW, TROPHS, CBC, CMP, ANEU, ADIFF, GFR ####[address] [address] [place] [phone] CKon 09-21-2024 CK [Catalytic activity/Vol] 69 U/L Normal 39-308 [facility] Comment on above: Performed By: #### Johanny K, DIMER, LIP, MDW, TROPHS, CBC, CMP, ANEU, ADIFF, GFR ####[address] [address] [place], [place] [address] CMPon 09-21-2024 Albumin Level 3.2 G/dL Low 3.4-4.8 [facility] Comment on above: Performed By: #### Johanny K, DIMER, LIP, MDW, TROPHS, CBC, CMP, ANEU, ADIFF, GFR ####[address] [place], [place] [address] Albumin/Globulin [Mass ratio] 0.9 {ratio} Low 1.1-2.5 [facility] Comment on above: Performed By: #### Johanny Rivera, DIMER, LIP, MDW, TROPHS, CBC, CMP, ANEU, ADIFF, GFR ####[place] [address] [place], [place] [address] ALP [Catalytic activity/Vol] 109 U/L Normal 40-135 [facility] Comment on above: Performed By: #### Johanny Rivera, DIMER, LIP, MDW, TROPHS, CBC, CMP, ANEU, ADIFF, GFR ####[address] [place], [place] [address] ALT [Catalytic activity/Vol] 43 U/L Normal 16-63 [facility] Comment on above: Performed By: #### Johanny Rivera, DIMER, LIP, MDW, TROPHS, CBC, CMP, ANEU, ADIFF, GFR ####[address] [place], [place] [address] AST [Catalytic activity/Vol] 22 U/L Normal 10-40 [facility] Comment on above: Performed By: #### Johanny K, DIMER, LIP, MDW, TROPHS, CBC, CMP, ANEU, ADIFF, GFR ####[address] [address] [place], [place] [address] Bili Total 0.4 mg/dL Normal 0.2-1.0 [facility] Comment on above: Result Comment: Use of this assay is not recommended for patients undergoing treatment with eltrombopag due to the potential for falsely elevated results. Performed By: #### C K, DIMER, LIP, MDW, TROPHS, CBC, CMP, ANEU, ADIFF, GFR ####[facility] [place], [place] [address] BUN/Creatinine Ratio 14 ratio Normal 7-27 [facility] Comment on above: Performed By: #### C K, DIMER, LIP, MDW, TROPHS, CBC, CMP, ANEU, ADIFF, GFR ####[place] [id number] [place] [phone] Calcium [Mass/Vol] 8.2 mg/dL Low 8.4-10.2 [facility] Comment on above: Performed By: #### C K, DIMER, LIP, MDW, TROPHS, CBC, CMP, ANEU, ADIFF, GFR ####[place] [id number] Chloride [Moles/Vol] 105 mmol/L Normal 98-107 [facility] Comment on above: Performed By: #### C K, DIMER, LIP, MDW, TROPHS, CBC, CMP, ANEU, ADIFF, GFR ####[address] [address] CO2 [Moles/Vol] 31 mmol/L Normal 23-31 [facility] Comment on above: Performed By: #### C K, DIMER, LIP, MDW, TROPHS, CBC, CMP, ANEU, ADIFF, GFR ####[address] [address] Creatinine [Mass/Vol] 0.93 mg/dL Normal 0.67-1.17 [facility] Comment on above: Performed By: #### C K, DIMER, LIP, MDW, TROPHS, CBC, CMP, ANEU, ADIFF, GFR ####[place] [id number] [place], [place] [address] Electrolyte Balance 2.0 mEq/L Low 4.0-15.0 [facility] Comment on above: Performed By: #### C K, DIMER, LIP, MDW, TROPHS, CBC, CMP, ANEU, ADIFF, GFR ####[address] [place], [place] [address] Globulin 3.5 G/dL Normal 2.7-4.4 [facility] Comment on above: Performed By: #### C K, DIMER, LIP, MDW, TROPHS, CBC, CMP, ANEU, ADIFF, GFR ####[address] [place], [place] [address] Glucose [Mass/Vol] 72 mg/dL Low 83-110 [facility] Comment on above: Performed By: #### C K, DIMER, LIP, MDW, TROPHS, CBC, CMP, ANEU, ADIFF, GFR ####[address] [place], [place] [address] Potassium [Moles/Vol] 3.7 mmol/L Normal 3.5-5.1 [facility] Comment on above: Performed By: #### C K, DIMER, LIP, MDW, TROPHS, CBC, CMP, ANEU, ADIFF, GFR ####[address] [place], [place] [address] Sodium [Moles/Vol] 138 mmol/L Normal 136-145 [facility] Comment on above: Performed By: #### C K, DIMER, LIP, MDW, TROPHS, CBC, CMP, ANEU, ADIFF, GFR ####[address] [place], [place] [address] Total Protein 6.7 G/dL Normal 6.4-8.2 [facility] Comment on above: Performed By: #### C K, DIMER, LIP, MDW, TROPHS, CBC, CMP, ANEU, ADIFF, GFR ####[address] [place], [place] [address] Urea nitrogen [Mass/Vol] 13 mg/dL Normal 7-18 [facility] Comment on above: Performed By: #### C K, DIMER, LIP, MDW, TROPHS, CBC, CMP, ANEU, ADIFF, GFR ####[address] [place], [place] [address] CT HEAD OR BRAIN W/O CONTRAS Ton 09-21-2024 CT HEAD OR BRAIN W/O CONTRAST ORIGINAL EXAMINATION: CT OF THE HEAD WITHOUT CONTRAST 09/21/2024 6:11 pm TECHNIQUE: CT of the head was performed without the administration of intravenous contrast. Automated exposure control, iterative reconstruction, and/or weight based adjustment of the mA/kV was utilized to reduce the radiation dose to as low as reasonably achievable. COMPARISON: MRI of the brain May 30, 2024 HISTORY: ORDERING SYSTEM PROVIDED HISTORY: Reason for Exam: fall FINDINGS: BRAIN/VENTRICLES: There is no acute intracranial hemorrhage, mass effect or midline shift. No abnormal extra-axial fluid collection. Encephalomalacia centered in the right parietal and temporal lobes. There is no evidence of hydrocephalus. ORBITS: The visualized portion of the orbits demonstrate no acute abnormality. SINUSES: The visualized paranasal sinuses and mastoid air cells demonstrate no acute abnormality. SOFT TISSUES/SKULL: No acute abnormality of the visualized skull. IMPRESSION: No acute intracranial hemorrhage. Interpreted by: Anastacio Ramos Preliminary Report By: Anastacio Ramos Electronically signed By Anastacio Ramos Dictated Date: 09/21/2024 6:20:55 PM Prelim Date: 09/21/2024 6:23:23 PM Sign Date: 09/21/2024 6:23:23 PM Ordering Provider: GARY KRUSE Normal [facility] CVFLURDominic 09-21-2024 FLU A PCR Negative Normal Negative [facility] Comment on above: Performed By: #### C VFLURV ####[address] [place], [place] [address] FLU B PCR Negative Normal Negative [facility] Comment on above: Performed By: #### C VFLURV ####[address] [place], [place] [address] RSV PCR Negative Normal Negative [facility] Comment on above: Performed By: #### C VFLURV ####[place] [address] [place], [place] [address] SARS-CoV-2 (COVID-19) RNA LATRICE+probe Ql (Unsp spec) Negative Normal Negative [facility] Comment on above: Result Comment: Resu lts from the Xpert Xpress CoV-2/Flu/RSV plus test should be correlated with the clinical history, epidemiological data, and other data available to the clinical evaluating the patient. Performance of the Xpert Xpress CoV-2/Flu/RSV plus test has only been established in nasopharyngeal swab specimen. Erroneous test results might occur from improper specimen collection, failure to follow the recommended sample collection, handling and storage procedures, technical error, or sample mix-up. False negative results may occur if a virus is present at a level below the analytical limit of detection. Viral nucleic acid may persist in vivo, independent of virus viability. Detection of analyte target(s) does not imply that the corresponding virus(es) are infectious or are the causative agents for clinical symptoms. Recent patient exposure to FluMist or other live attenuated influenza vaccines may cause inaccurate positive results. Performed By: #### C VFLURV ####[address] [place], [place] [address] DIMERon 09-21-2024 D-Dimer <200 Normal 0-230 [facility] Comment on above: Order Comment: Short draw 09/21/2024 16:43:52 EDT EH Result Comment: DDN: Results reported in D-DU ng/mL. Negative for D-dimer. DVT/PE is highly unlikely. Note: False negative results may be seen in patients on anticoagulant therapy. The result of the D-Dimer test should be evaluated in the context of all the clinical and laboratory data available. In those instances where the laboratory result does not agree with the clinical evaluation, additional tests should be performed accordingly. If the D-Dimer result is used to exclude DVT or PE, the recommended cutoff value is less than 230 ng/mL. The D-Dimer result should not be used alone to rule in DVT/PE, but should be used in conjunction with a clinical pretest probability (PTP)assessment model to exclude venous thromboembolism (VTE) in patients suspected of deep venous thrombosis (DVT) and pulmonary embolism (PE). Performed By: #### C K, DIMER, LIP, MDW, TROPHS, CBC, CMP, ANEU, ADIFF, GFR ####[address] [place], [place] [address] LABORATORYOrdered By: Nelsy Blanchard on 09-21-2024 Blood Glucose Testing Reason Routine (09/21/24 6:37 PM) [facility] Work Phone: Glucose [Mass/Vol] 134 mg/dL High 82 - 115 mg/dL [facility] Work Phone: Time of Stated Blood Glucose [id number] [facility] Work Phone: LABORATORYOrdered By: Luda Christensen on 09-21-2024 Appearance (U) Clear (09/21/24 5:42 PM) Normal Clear AO Auto Urine SS Bilirubin Ql (U) Negative (09/21/24 5:42 PM) Normal Negative AO Auto Urine SS Color (U) Yellow (09/21/24 5:42 PM) Normal AO Auto Urine SS Glucose Test strip (U) [Mass/Vol] Negative Normal Negative AO Auto Urine SS Hemoglobin Auto test strip (U) [Mass/Vol] Trace (09/21/24 5:42 PM) Normal Negative AO Auto Urine SS Ketones Ql (U) Negative Normal Negative AO Auto Urine SS UA Leuk Est Negative (09/21/24 5:42 PM) Normal Negative AO Auto Urine SS UA Nitrite Negative (09/21/24 5:42 PM) Normal Negative AO Auto Urine SS UA pH 6.0 (09/21/24 5:42 PM) Normal 5.0 - 8.0 AO Auto Urine SS UA Protein Negative Normal Negative AO Auto Urine SS UA Spec Grav <=1.005 *ABN* (09/21/24 5:42 PM) Invalid Interpretation Code 1.015-1.025 AO Auto Urine SS UA Specimen Type Clean Catch (09/21/24 5:42 PM) Normal AO Auto Urine SS UA Urobilinogen 0.2 E.U./dL Normal 0.2-1.0 AO Auto Urine SS FLUAV RNA LATRICE+probe Ql (Resp) Negative (09/21/24 4:16 PM) Normal Negative AO Auto Urine SS FLUBV RNA LATRICE+probe Ql (Resp) Negative (09/21/24 4:16 PM) Normal Negative AO Auto Urine SS RSV RNA LATRICE+probe Ql (Resp) Negative (09/21/24 4:16 PM) Normal Negative AO Auto Urine SS SARS-CoV-2 (COVID-19) RNA LATRICE+probe Ql (Resp) Negative 7 (09/21/24 4:16 PM) Normal Negative AO Auto Urine SS Comment on above: Interpretive Data: R esults from the Xpert Xpress CoV-2/Flu/RSV plus test should be correlated with the clinical history, epidemiological data, and other data available to the clinical evaluating the patient. Performance of the Xpert Xpress CoV-2/Flu/RSV plus test has only been established in nasopharyngeal swab specimen. Erroneous test results might occur from improper specimen collection, failure to follow the recommended sample collection, handling and storage procedures, technical error, or sample mix-up. False negative results may occur if a virus is present at a level below the analytical limit of detection. Viral nucleic acid may persist in vivo, independent of virus viability. Detection of analyte target(s) does not imply that the corresponding virus(es) are infectious or are the causative agents for clinical symptoms. Recent patient exposure to FluMist or other live attenuated influenza vaccines may cause inaccurate positive results. LABORATORYOrdered By: SYSTEM SYSTEM on 09-21-2024 Albumin BCP dye [Mass/Vol] 3.2 G/dL Low 3.4 - 4.8 G/dL AO ADM SS Albumin/Globulin [Mass ratio] 0.9 {ratio} Low 1.1 - 2.5 ratio AO ADM SS ALP [Catalytic activity/Vol] 109 U/L Normal 40 - 135 U/L AO ADM SS ALT With P-5'-P [Catalytic activity/Vol] 43 U/L Normal 16 - 63 U/L AO ADM SS AST With P-5'-P [Catalytic activity/Vol] 22 U/L Normal 10 - 40 U/L AO ADM SS Basophils (Bld) [#/Vol] 0.1 103/mcL Normal 0.0 - 0.3 10^3/mcL AO Workflow SS Basophils/100 WBC (Bld) 0.4 % Normal 0.0 - 2.5 % AO Workflow SS Bilirubin [Mass/Vol] 0.4 mg/dL Normal 0.2 - 1 .0 mg/dL AO ADM SS Comment on above: Interpretive Data: U se of this assay is not recommended for patients undergoing treatment with eltrombopag due to the potential for falsely elevated results. Calcium [Mass/Vol] 8.2 mg/dL Low 8.4 - 10. 2 mg/dL AO ADM SS Chloride [Moles/Vol] 105 mmol/L Normal 98 - 10 7 mmol/L AO ADM SS CK [Catalytic activity/Vol] 69 U/L Normal 39 - 308 U/L AO ADM SS CO2 [Moles/Vol] 31 mmol/L Normal 23 - 31 mmol/L AO ADM SS Creatinine [Mass/Vol] 0.93 mg/dL Normal 0.67 - 1.17 mg/dL AO ADM SS Electrolyte Balance 2.0 mEq/L Low 4.0 - 15 .0 mEq/L AO ADM SS Eosinophil, Absolute 0.7 103/mcL Normal 0.0 - 0 .7 10^3/mcL AO Workflow SS Eosinophils/100 WBC (Bld) 5.0 % Normal 0.0 - 6.0 % AO Workflow SS Erythrocyte distribution width (RBC) [Ratio] 13.6 % Normal 11.5 - 15.5 % AO Workflow SS Estimated Glomerular Filtration Rate 88 ml/min/1.73sqm Invalid Interpretation Code AO Chemistry S Comment on above: Interpretive Data: Stages of Chronic Kidney Disease (CKD) Stage Description eGFR(ml/min/1.73 sq.m.) CKD 1 Normal kidney function or >=90 normal kindney function with possible kidney damage (ex. Proteinuria) CKD 2 Kidney damage with mild loss 60-89 of kidney function CKD 3a Mild to moderate loss of kidney 45-59 function CKD 3b Moderate to severe loss of 30-44 of kindey function CKD 4 Severe loss of kidney function 15-29 CKD 5 Kidney failure <15 Note: (go live 2024) the eGFR calculation was updated to the 2020 CKD-EPI creatinine equation without a race factor to calculate the eGFR results. Fibrin D-dimer DDU (PPP) [Mass/Vol] ng/mL D-DU Normal 0 - 230 ng/mL D-DU AO [facility] SS Comment on above: Result Comment: DDN: Results reported in D-DU ng/mL. Negative for D-dimer. DVT/PE is highly unlikely. Note: False negative results may be seen in patients on anticoagulant therapy. Interpretive Data: T he result of the D-Dimer test should be evaluated in the context of all the clinical and laboratory data available. In those instances where the laboratory result does not agree with the clinical evaluation, additional tests should be performed accordingly. If the D-Dimer result is used to exclude DVT or PE, the recommended cutoff value is less than 230 ng/mL. The D-Dimer result should not be used alone to rule in DVT/PE, but should be used in conjunction with a clinical pretest probability (PTP)assessment model to exclude venous thromboembolism (VTE) in patients suspected of deep venous thrombosis (DVT) and pulmonary embolism (PE). Globulin 3.5 G/dL Normal 2.7 - 4.4 G/dL AO ADM SS Glucose [Mass/Vol] 72 mg/dL Low 83 - 110 mg/dL AO ADM SS Hematocrit (Bld) [Volume fraction] 38.0 % Low 40.0 - 52.0 % AO Workflow SS Hemoglobin (Bld) [Mass/Vol] 12.7 G/dL Low 13.0 - 17.5 G/dL AO Workflow SS Lipase [Catalytic activity/Vol] 20 U/L Normal 16 - 77 U/L AO ADM SS Lymphocytes (Bld) [#/Vol] 6.6 103/mcL High 0.9 - 4.3 10^3/mcL AO Workflow SS Lymphocytes/100 WBC (Bld) 47.0 % High 20.0 - 40.0 % AO Workflow SS MCH (RBC) [Entitic mass] 33.4 pg High 27.0 - 33.0 pg AO Workflow SS MCHC 33.4 G/dL Normal 32.0 - 36.0 G/dL AO Workflow SS MCV (RBC) [Entitic vol] 99.9 fL Normal 81.0 - 100.0 fL AO Workflow SS Monocyte distribution width Auto (Bld) [Entitic vol] 21.83 1 High 0.00 - 20.00 AO Workflow SS Comment on above: Result Comment: For adults in ED, MDW>20.0 may be associated with a higher risk of sepsis during the first 12hrs of hospital admission Monocytes (Bld) [#/Vol] 0.7 103/mcL Normal 0.1 - 1.4 10^3/mcL AO Workflow SS Monocytes/100 WBC (Bld) 5.4 % Normal 2.0 - 13.0 % AO Workflow SS Neutrophils (Bld) [#/Vol] 5.9 103/mcL Normal 2.3 - 8.1 10^3/mcL AO Workflow SS Neutrophils/100 WBC (Bld) 42.2 % Low 50.0 - 75.0 % AO Workflow SS Platelet mean volume (Bld) [Entitic vol] 8.3 fL Normal 6.4 - 10.5 fL AO Workflow SS Platelets (Bld) [#/Vol] 204 103/mcL Normal 150 - 450 10^3/mcL AO Workflow SS Potassium [Moles/Vol] 3.7 mmol/L Normal 3.5 - 5.1 mmol/L AO ADM SS Protein [Mass/Vol] 6.7 G/dL Normal 6.4 - 8.2 G/dL AO ADM SS RBC (Bld) [#/Vol] 3.80 106/mcL Low 4.50 - 6.0 0 10^6/mcL AO Workflow SS Sodium [Moles/Vol] 138 mmol/L Normal 136 - 145 mmol/L AO ADM SS Troponin I.cardiac DL <= 0.01 ng/mL [Mass/Vol] 6 ng/L Normal 0 - 76 ng/L AO ADM SS Comment on above: Interpretive Data: H igh Sensitive Troponin I Reference Ranges: Female: 0-51 ng/L Male: 0-76 ng/L Testing performed on Dimension EXL using a homogeneous sandwich chemiluminescent immunoassay based on [employer] technology. Urea nitrogen [Mass/Vol] 13 mg/dL Normal 7 - 18 mg/dL AO ADM SS Urea nitrogen/Creatinine [Mass ratio] 14 ratio Normal 7 - 27 ratio AO ADM SS WBC (Bld) [#/Vol] 14.0 103/mcL High 4.5 - 10.8 10^3/mcL AO Workflow SS LIPon 09-21-2024 Lipase Level 20 U/L Normal 16-77 [facility] Comment on above: Performed By: #### C K, DIMER, LIP, MDW, TROPHS, CBC, CMP, ANEU, ADIFF, GFR ####[address] [place], [place] [address] TROPHSon 09-21-2024 High Sensitivity Troponin I 6 ng/L Normal 0-76 [facility] Comment on above: Result Comment: High Sensitive Troponin I Reference Ranges: Female: 0-51 ng/L Male: 0-76 ng/L Testing performed on Dimension EXL using a homogeneous sandwich chemiluminescent immunoassay based on [employer] technology. Performed By: #### C K, DIMER, LIP, MDW, TROPHS, CBC, CMP, ANEU, ADIFF, GFR ####[address] [address] UAon 09-21-2024 Color (U) Yellow Normal [facility] Comment on above: Performed By: #### U A ####[address] [place] [address] Glucose (U) [Mass/Vol] Negative Normal Negative [facility] Comment on above: Performed By: #### U A ####[address] [place] [address] Ketones Ql (U) Negative Normal Negative [facility] Comment on above: Performed By: #### U A ####[address] [place] [address] UA Appear Clear Normal Clear [facility] Comment on above: Performed By: #### U A ####[address] [address] UA Blood Trace Normal Negative [facility] Comment on above: Performed By: #### U A ####[address] [address] UA Leuk Est Negative Normal Negative [facility] Comment on above: Performed By: #### U A ####[place] [address] [address] UA Nitrite Negative Normal Negative [facility] Comment on above: Performed By: #### U A ####[address] [place] [address] UA pH 6.0 Normal 5.0 - 8.0 [facility] Comment on above: Performed By: #### U A ####[address] [place] [address] UA Protein Negative Normal Negative [facility] Comment on above: Performed By: #### U A ####[address] [place] [address] UA Spec Grav <=1.005 Abnormal 1.015-1.025 [facility] Comment on above: Performed By: #### U A ####[address] [place] [address] UA Specimen Type Clean Catch Normal [facility] Comment on above: Performed By: #### U A ####[facility] [place], [place] [address] UA Urobilinogen 0.2 E.U./dL Normal 0.2-1.0 [facility] Comment on above: Performed By: #### U A ####[facility] [place], [place] [address] Urobilinogen (U) [Mass/Vol] Negative Normal Negative [facility] Comment on above: Performed By: #### U A ####[facility] [place], [place] [address] XR CHEST 1 VIEWon 09-21-2024 XR CHEST 1 VIEW ORIGINAL EXAMINATION: ONE XRAY VIEW OF THE CHEST 09/21/2024 6:04 pm COMPARISON: CT thorax screening without contrast 02/03/2024. HISTORY: ORDERING SYSTEM PROVIDED HISTORY: Reason for Exam: cough FINDINGS: The lungs are hyperinflated. The lungs are without acute focal process. There is no effusion or pneumothorax. The cardiomediastinal silhouette is without acute process. The osseous structures are without acute process. Changes status post median sternotomy. IMPRESSION: No acute process. Interpreted by: Kim Thomas Preliminary Report By: Kim Thomas Electronically signed By Kim Thomas Dictated Date: 09/21/2024 6:07:47 PM Prelim Date: 09/21/2024 6:08:55 PM Sign Date: 09/21/2024 6:08:55 PM Ordering Provider: GARY KRUSE [facility] XR SPINE LUMBAR AP/LATon XR SPINE LUMBAR AP/LAT ORIGINAL EXAMINATION: 2 XRAY VIEWS OF THE LUMBAR SPINE 09/21/2024 6:02 pm COMPARISON: CT abdomen pelvis August 04, 2024 HISTORY: ORDERING SYSTEM PROVIDED HISTORY: Reason for Exam: fall FINDINGS: Vertebral body heights and alignment are unchanged. Degenerative change of the spine. IMPRESSION: No acute osseous abnormality by radiograph. Interpreted by: Anastacio aRmos Preliminary Report By: Anastacio Ramos Electronically signed By Anastacio Ramos Dictated Date: 09/21/2024 6:07:38 PM Prelim Date: 09/21/2024 6:08:32 PM Sign Date: 09/21/2024 6:08:32 PM Ordering Provider: GARY KRUSE Normal [facility] B1WBon 08-30-2024 Vitamin B1 Whl Bld 180.9 nmol/L Normal 66.5-200.0 [facility] Comment on above: Result Comment: This test was developed and its performance characteristics determined by [facility]. It has not been cleared or approved by the Food and Drug Administration. Performed At: [facility] [id number] [place] MD Ph:[phone] Performed By: #### P SA, CBC, FT4, LIPID, MORPH, A1C, GFR, DIFF, [id number], CMP, TSH ####[address] [place], [place] [address]#### HCV1, B12 ####[address] [address] .GFRon 08-28-2024 Estimated Glomerular Filtration Rate 78 ml/min/1.73sqm Normal [facility] Comment on above: Result Comment: Stages of Chronic Kidney Disease (CKD) Stage Description eGFR(ml/min/1.73 sq.m.) CKD 1 Normal kidney function or >=90 normal kindney function with possible kidney damage (ex. Proteinuria) CKD 2 Kidney damage with mild loss 60-89 of kidney function CKD 3a Mild to moderate loss of kidney 45-59 function CKD 3b Moderate to severe loss of 30-44 of kindey function CKD 4 Severe loss of kidney function 15-29 CKD 5 Kidney failure <15 Note: (go live 2024) the eGFR calculation was updated to the 2020 CKD-EPI creatinine equation without a race factor to calculate the eGFR results. Performed By: #### P SA, CBC, FT4, LIPID, MORPH, A1C, GFR, DIFF, [id number], CMP, TSH ####[address] [place], [place] [address]#### HCV1, B12 ####[address] [address] .Manual Diffon 08-28-2024 Atypical Lymphs 4.0 % Normal 0.0-5.0 [facility] Comment on above: Performed By: #### P SA, CBC, FT4, LIPID, MORPH, A1C, GFR, DIFF, [id number], CMP, TSH ####[place] [address]#### HCV1, B12 ####[place] [address] Aytpical Lymph, Abs Manual 0.5 10 3/mcL Normal 0.0-0.5 [facility] Comment on above: Performed By: #### P SA, CBC, FT4, LIPID, MORPH, A1C, GFR, DIFF, [id number], CMP, TSH ####[place] [address]#### HCV1, B12 ####[place] [address] Basophil %, Manual 0.0 % Normal 0.0-2.5 [facility] Comment on above: Performed By: #### P SA, CBC, FT4, LIPID, MORPH, A1C, GFR, DIFF, [id number], CMP, TSH ####[place] [address]#### HCV1, B12 ####[place] [address] Basophil, Abs Manual 0.0 10 3/mcL Normal 0.0-0.3 [facility] Comment on above: Performed By: #### P SA, CBC, FT4, LIPID, MORPH, A1C, GFR, DIFF, [id number], CMP, TSH ####[place] [address]#### HCV1, B12 ####[place] [address] Eosinophil %, Manual 1.0 % Normal 0.0-6.0 [facility] Comment on above: Performed By: #### P SA, CBC, FT4, LIPID, MORPH, A1C, GFR, DIFF, 336351, CMP, TSH ####[place] [address]#### HCV1, B12 ####[address] [address] Eosinophil, Abs Manual 0.1 10 3/mcL Normal 0.0-0.7 [facility] Comment on above: Performed By: #### P SA, CBC, FT4, LIPID, MORPH, A1C, GFR, DIFF, [id number], CMP, TSH ####[place] [address]#### HCV1, B12 ####[place] [address] Lymphocyte %, Manual 60.0 % High 20.0-40.0 [facility] Comment on above: Performed By: #### P SA, CBC, FT4, LIPID, MORPH, A1C, GFR, DIFF, [id number], CMP, TSH ####[place] [address]#### HCV1, B12 ####[place] [address] Lymphocyte, Abs Manual 7.6 10 3/mcL High 0.9-4.3 [facility] Comment on above: Performed By: #### P SA, CBC, FT4, LIPID, MORPH, A1C, GFR, DIFF, [id number], CMP, TSH ####[place] [address]#### HCV1, B12 ####[place] [address] Monocyte %, Manual 3.0 % Normal 2.0-13.0 [facility] Comment on above: Performed By: #### P SA, CBC, FT4, LIPID, MORPH, A1C, GFR, DIFF, 620654, CMP, TSH ####[place] [address]#### HCV1, B12 ####[place] [address] Monocyte, Abs Manual 0.4 10 3/mcL Normal 0.1-1.4 [facility] Comment on above: Performed By: #### P SA, CBC, FT4, LIPID, MORPH, A1C, GFR, DIFF, [id number], CMP, TSH ####[place] [address]#### HCV1, B12 ####[place] [address] Neutrophil %, Manual 32.0 % Low 50.0-75.0 [facility] Comment on above: Performed By: #### P SA, CBC, FT4, LIPID, MORPH, A1C, GFR, DIFF, 924349, CMP, TSH ####[place] [address]#### HCV1, B12 ####[place] [address] Neutrophil, Abs Manual 4.1 10 3/mcL Normal 2.3-8.1 [facility] Comment on above: Performed By: #### P SA, CBC, FT4, LIPID, MORPH, A1C, GFR, DIFF, [id number], CMP, TSH ####[place] [address]#### HCV1, B12 ####[place] [address] Nucleated RBC 0.0 /100 WBC Normal [facility] Comment on above: Performed By: #### P SA, CBC, FT4, LIPID, MORPH, A1C, GFR, DIFF, [id number], CMP, TSH ####[place] [address]#### HCV1, B12 ####[place] [address] .Morphon 08-28-2024 Platelet Estimate Normal Normal [facility] Comment on above: Performed By: #### P SA, CBC, FT4, LIPID, MORPH, A1C, GFR, DIFF, [id number], CMP, TSH ####[place] [address]#### HCV1, B12 ####[place] [address] RBC morphology finding Nom (Bld) Normal Normal [facility] Comment on above: Performed By: #### P SA, CBC, FT4, LIPID, MORPH, A1C, GFR, DIFF, 113652, CMP, TSH ####[place] [address]#### HCV1, B12 ####[place] [address] Smudge Cells 1+ Normal [facility] Comment on above: Performed By: #### P SA, CBC, FT4, LIPID, MORPH, A1C, GFR, DIFF, [id number], CMP, TSH ####[place] [address]#### HCV1, B12 ####[place] [address] A1Con 08-28-2024 Glucose [Mass/Vol] 126 mg/dL Normal [facility] Comment on above: Order Comment: cc [place] [facility] to [facility] Result Comment: Teena mated Average Glucose calculated by equation ((28.7xA1C)-46.7) Estimated average glucose (eAG) is a calculated value from Hemoglobin A1C and is union contract representative of the average blood glucose level in the last 2-3 month period. Normal range: less than 114 mg/dL Performed By: #### P SA, CBC, FT4, LIPID, MORPH, A1C, GFR, DIFF, [id number], CMP, TSH ####[place] [address]#### HCV1, B12 ####[place] [address] HbA1c (Bld) [Mass fraction] 6.0 % Normal 4.3-6.4 [facility] Comment on above: Order Comment: [place] flood to [facility] Performed By: #### P SA, CBC, FT4, LIPID, MORPH, A1C, GFR, DIFF, [id number], CMP, TSH ####[place] [address]#### HCV1, B12 ####[place] [address] B12on 08-28-2024 Cobalamin (Vitamin B12) [Mass/Vol] 1366 pg/mL High 211-911 [facility] Comment on above: Performed By: #### P SA, CBC, FT4, LIPID, MORPH, A1C, GFR, DIFF, [id number], CMP, TSH ####[place] [address]#### HCV1, B12 ####[place] [address] CBCon 08-28-2024 Erythrocyte distribution width (RBC) [Ratio] 13.7 % Normal 11.5-15.5 [facility] Comment on above: Order Comment: cc re [facility] to [facility] Performed By: #### P SA, CBC, FT4, LIPID, MORPH, A1C, GFR, DIFF, [id number], CMP, TSH ####[place] [address]#### HCV1, B12 ####[place] [address] Hematocrit (Bld) [Volume fraction] 41.4 % Normal 40.0-52.0 [facility] Comment on above: Order Comment: cc re [facility] to [facility] Performed By: #### P SA, CBC, FT4, LIPID, MORPH, A1C, GFR, DIFF, [id number], CMP, TSH ####[place] [address]#### HCV1, B12 ####[place] [address] Hgb 13.8 G/dL Normal 13.0-17.5 [facility] Comment on above: Order Comment: cc re [facility] Performed By: #### P SA, CBC, FT4, LIPID, MORPH, A1C, GFR, DIFF, [id number], CMP, TSH ####[place] [address]#### HCV1, B12 ####[place] [address] MCH (RBC) [Entitic mass] 33.7 pg High 27.0-33.0 [facility] Comment on above: Order Comment: cc re [facility] Performed By: #### P SA, CBC, FT4, LIPID, MORPH, A1C, GFR, DIFF, [id number], CMP, TSH ####[place] [address]#### HCV1, B12 ####[address] [address] MCHC 33.3 G/dL Normal 32.0-36.0 [facility] Comment on above: Order Comment: cc re [facility] Performed By: #### P SA, CBC, FT4, LIPID, MORPH, A1C, GFR, DIFF, 105284, CMP, TSH ####[place] [address]#### HCV1, B12 ####[place] [address] MCV (RBC) [Entitic vol] 101.0 fL High 81.0-100.0 [facility] Comment on above: Order Comment: cc re [facility] Performed By: #### P SA, CBC, FT4, LIPID, MORPH, A1C, GFR, DIFF, [id number], CMP, TSH ####[place] [address]#### HCV1, B12 ####[address] [address] Platelet 194 10 3/mcL Normal 150-450 [facility] Comment on above: Order Comment: cc re [facility] Performed By: #### P SA, CBC, FT4, LIPID, MORPH, A1C, GFR, DIFF, [id number], CMP, TSH ####[place] [address]#### HCV1, B12 ####[address] [address] Platelet mean volume (Bld) [Entitic vol] 8.6 fL Normal 6.4-10.5 [facility] Comment on above: Order Comment: [facility] re [facility] Performed By: #### P SA, CBC, FT4, LIPID, MORPH, A1C, GFR, DIFF, [id number], CMP, TSH ####[place] [address]#### HCV1, B12 ####[place] [address] RBC 4.10 10 6/mcL Low 4.50-6.00 [facility] Comment on above: Order Comment: cc re [facility] Performed By: #### P SA, CBC, FT4, LIPID, MORPH, A1C, GFR, DIFF, [id number], CMP, TSH ####[place] [address]#### HCV1, B12 ####[place] [address] WBC 12.7 10 3/mcL High 4.5-10.8 [facility] Comment on above: Order Comment: cc re [facility] Performed By: #### P SA, CBC, FT4, LIPID, MORPH, A1C, GFR, DIFF, 101162, CMP, TSH ####[place] [address]#### HCV1, B12 ####[place] [address] CMPon 08-28-2024 Albumin Level 3.4 G/dL Normal 3.4-4.8 [facility] Comment on above: Order Comment: cc re [facility] to [facility] Performed By: #### P SA, CBC, FT4, LIPID, MORPH, A1C, GFR, DIFF, [id number], CMP, TSH ####[place] [address]#### HCV1, B12 ####[place] [address] Albumin/Globulin [Mass ratio] 1.0 {ratio} Low 1.1-2.5 [facility] Comment on above: Order Comment: cc re [facility] Performed By: #### P SA, CBC, FT4, LIPID, MORPH, A1C, GFR, DIFF, [id number], CMP, TSH ####[place] [address]#### HCV1, B12 ####[place] [address] ALP [Catalytic activity/Vol] 95 U/L Normal 40-135 [facility] Comment on above: Order Comment: cc re [facility] Performed By: #### P SA, CBC, FT4, LIPID, MORPH, A1C, GFR, DIFF, [id number], CMP, TSH ####[place] [address]#### HCV1, B12 ####[place] [address] ALT [Catalytic activity/Vol] 55 U/L Normal 16-63 [facility] Comment on above: Order Comment: [facility] group Performed By: #### P SA, CBC, FT4, LIPID, MORPH, A1C, GFR, DIFF, [id number], CMP, TSH ####[place] [address]#### HCV1, B12 ####[place] [address] AST [Catalytic activity/Vol] 33 U/L Normal 10-40 [facility] Comment on above: Order Comment: cc re sults to [facility] Performed By: #### P SA, CBC, FT4, LIPID, MORPH, A1C, GFR, DIFF, [id number], CMP, TSH ####[place] [address]#### HCV1, B12 ####[place] [address] Bili Total 0.2 mg/dL Normal 0.2-1.0 [facility] Comment on above: Order Comment: cc re sults to [place] [facility] Result Comment: Use of this assay is not recommended for patients undergoing treatment with eltrombopag due to the potential for falsely elevated results. Performed By: #### P SA, CBC, FT4, LIPID, MORPH, A1C, GFR, DIFF, [id number], CMP, TSH ####[place] [address]#### HCV1, B12 ####[address] [address] BUN/Creatinine Ratio 16 ratio Normal 7-27 [facility] Comment on above: Order Comment: cc re sults to [facility] Performed By: #### P SA, CBC, FT4, LIPID, MORPH, A1C, GFR, DIFF, [id number], CMP, TSH ####[place] [address]#### HCV1, B12 ####[place] [address] Calcium [Mass/Vol] 8.8 mg/dL Normal 8.4-10.2 [facility] Comment on above: Order Comment: cc re sults to [facility] Performed By: #### P SA, CBC, FT4, LIPID, MORPH, A1C, GFR, DIFF, [id number], CMP, TSH ####[place] [address]#### HCV1, B12 ####[place] [address] Chloride [Moles/Vol] 105 mmol/L Normal 98-107 [facility] Comment on above: Order Comment: cc re sults to [facility] Performed By: #### P SA, CBC, FT4, LIPID, MORPH, A1C, GFR, DIFF, [id number], CMP, TSH ####[place] [address]#### HCV1, B12 ####[place] [address] CO2 [Moles/Vol] 32 mmol/L High 23-31 [facility] Comment on above: Order Comment: cc re [facility]ults to [facility] Performed By: #### P SA, CBC, FT4, LIPID, MORPH, A1C, GFR, DIFF, [id number], CMP, TSH ####[place] [address]#### HCV1, B12 ####[place] [address] Creatinine [Mass/Vol] 1.03 mg/dL Normal 0.67-1.17 [facility] Comment on above: Order Comment: cc re sults to [facility] Performed By: #### P SA, CBC, FT4, LIPID, MORPH, A1C, GFR, DIFF, [id number], CMP, TSH ####[place] [address]#### HCV1, B12 ####[place] [address] Electrolyte Balance 3.0 mEq/L Low 4.0-15.0 [facility] Comment on above: Order Comment: cc re sults to [facility] Performed By: #### P SA, CBC, FT4, LIPID, MORPH, A1C, GFR, DIFF, [id number], CMP, TSH ####[place] [address]#### HCV1, B12 ####[place] [address] Globulin 3.4 G/dL Normal 2.7-4.4 [facility] Comment on above: Order Comment: cc re [facility]ults to [facility] Performed By: #### P SA, CBC, FT4, LIPID, MORPH, A1C, GFR, DIFF, [id number], CMP, TSH ####[place] [address]#### HCV1, B12 ####[place] [address] Glucose [Mass/Vol] 92 mg/dL Normal 83-110 [facility] Comment on above: Order Comment: cc re [facility]ults to [facility] Performed By: #### P SA, CBC, FT4, LIPID, MORPH, A1C, GFR, DIFF, [id number], CMP, TSH ####[place] [address]#### HCV1, B12 ####[place] [address] Potassium [Moles/Vol] 4.2 mmol/L Normal 3.5-5.1 [facility] Comment on above: Order Comment: cc re [facility]ults to [facility] Performed By: #### P SA, CBC, FT4, LIPID, MORPH, A1C, GFR, DIFF, [id number], CMP, TSH ####[place] [address]#### HCV1, B12 ####[address] [address] Sodium [Moles/Vol] 140 mmol/L Normal 136-145 [facility] Comment on above: Order Comment: cc re [facility]ults to [facility] Performed By: #### P SA, CBC, FT4, LIPID, MORPH, A1C, GFR, DIFF, [id number], CMP, TSH ####[place] [address]#### HCV1, B12 ####[place] [address] Total Protein 6.8 G/dL Normal 6.4-8.2 [facility] Comment on above: Order Comment: cc re [facility]ults to [facility] Performed By: #### P SA, CBC, FT4, LIPID, MORPH, A1C, GFR, DIFF, [id number], CMP, TSH ####[place] [address]#### HCV1, B12 ####[place] [address] Urea nitrogen [Mass/Vol] 16 mg/dL Normal 7-18 [facility] Comment on above: Order Comment: cc re [facility]ults to [facility] Performed By: #### P SA, CBC, FT4, LIPID, MORPH, A1C, GFR, DIFF, [id number], CMP, TSH ####[place] [address]#### HCV1, B12 ####[place] [id number] FT4on 08-28-2024 Free T4 [Mass/Vol] 0.85 ng/dL Normal 0.76-1.46 [facility] Comment on above: Performed By: #### P SA, CBC, FT4, LIPID, MORPH, A1C, GFR, DIFF, [id number], CMP, TSH ####[facility] [place] [id number]#### HCV1, B12 ####[place] [address] HCVon 08-28-2024 Hep C Ab Non-Reactive Normal Non-Reactive [facility] Comment on above: Performed By: #### P SA, CBC, FT4, LIPID, MORPH, A1C, GFR, DIFF, [id number], CMP, TSH ####[place] [address] [place] [address]#### HCV1, B12 ####[place] [address] Hep C Ab Int See Interp Normal [facility] Comment on above: Result Comment: Clinical Interpretation: Nonreactive: Samples with a value < 0.80 are considered nonreactive (negative) for antibodies to HCV. A negative test result does not exclude the possibility of exposure to or infection with HCV. HCV antibodies may be undetectable in some stages of the infection and in some clinical conditions. Performed By: #### P SA, CBC, FT4, LIPID, MORPH, A1C, GFR, DIFF, [id number], CMP, TSH ####[place] [address]#### HCV1, B12 ####[place] [address] LABORATORYOrdered By: SYSTEM SYSTEM on 08-28-2024 Albumin BCP dye [Mass/Vol] 3.4 G/dL Normal 3.4 - 4.8 G/dL AO ADM SS Albumin/Globulin [Mass ratio] 1.0 {ratio} Low 1.1 - 2.5 ratio AO ADM SS ALP [Catalytic activity/Vol] 95 U/L Normal 40 - 135 U/L AO ADM SS ALT With P-5'-P [Catalytic activity/Vol] 55 U/L Normal 16 - 63 U/L AO ADM SS AST With P-5'-P [Catalytic activity/Vol] 33 U/L Normal 10 - 40 U/L AO ADM SS Aytpical Lymph, Abs Manual 0.5 103/mcL Normal 0.0 - 0.5 10^3/mcL AO Workflow SS Basophil %, Manual 0.0 % Normal 0.0 - 2.5 % AO Wo rkflow SS Basophils (Bld) [#/Vol] 0.0 103/mcL Normal 0.0 - 0.3 10^3/mcL AO Workflow SS Bilirubin [Mass/Vol] 0.2 mg/dL Normal 0.2 - 1 .0 mg/dL AO ADM SS Comment on above: Interpretive Data: U se of this assay is not recommended for patients undergoing treatment with eltrombopag due to the potential for falsely elevated results. Calcium [Mass/Vol] 8.8 mg/dL Normal 8.4 - 10. 2 mg/dL AO ADM SS Chloride [Moles/Vol] 105 mmol/L Normal 98 - 10 7 mmol/L AO ADM SS CO2 [Moles/Vol] 32 mmol/L High 23 - 31 mmol/L AO ADM SS Cobalamin (Vitamin B12) [Mass/Vol] 1366 pg/mL High 211 - 911 pg/mL AH ADM SS Creatinine [Mass/Vol] 1.03 mg/dL Normal 0.67 - 1.17 mg/dL AO ADM SS Electrolyte Balance 3.0 mEq/L Low 4.0 - 15 .0 mEq/L AO ADM SS Eosinophil %, Manual 1.0 % Normal 0.0 - 6.0 % AO Workflow SS Eosinophils (Bld) [#/Vol] 0.1 103/mcL Normal 0.0 - 0.7 10^3/mcL AO Workflow SS Erythrocyte distribution width (RBC) [Ratio] 13.7 % Normal 11.5 - 15.5 % AO Workflow SS Estimated Glomerular Filtration Rate 78 ml/min/1.73sqm Invalid Interpretation Code AO Chemistry S Comment on above: Interpretive Data: Stages of Chronic Kidney Disease (CKD) Stage Description eGFR(ml/min/1.73 sq.m.) CKD 1 Normal kidney function or >=90 normal kindney function with possible kidney damage (ex. Proteinuria) CKD 2 Kidney damage with mild loss 60-89 of kidney function CKD 3a Mild to moderate loss of kidney 45-59 function CKD 3b Moderate to severe loss of 30-44 of kindey function CKD 4 Severe loss of kidney function 15-29 CKD 5 Kidney failure <15 Note: (go live 2024) the eGFR calculation was updated to the 2020 CKD-EPI creatinine equation without a race factor to calculate the eGFR results. Free T4 [Mass/Vol] 0.85 ng/dL Normal 0.76 - 1. 46 ng/dL AO ADM SS Globulin 3.4 G/dL Normal 2.7 - 4.4 G/dL AO ADM SS Glucose [Mass/Vol] 126 mg/dL Invalid Interpretation Code AO Chemistry S Comment on above: Interpretive Data: E stimated average glucose (eAG) is a calculated value from Hemoglobin A1C and is union contract representative of the average blood glucose level in the last 2-3 month period. Normal range: less than 114 mg/dL Glucose [Mass/Vol] 92 mg/dL Normal 83 - 110 mg/dL AO ADM SS HbA1c (Bld) [Mass fraction] 6.0 % Normal 4.3 - 6.4 % AO ADM SS Hematocrit (Bld) [Volume fraction] 41.4 % Normal 40.0 - 52.0 % AO Workflow SS Hemoglobin (Bld) [Mass/Vol] 13.8 G/dL Normal 13.0 - 17.5 G/dL AO Workflow SS Lymphocytes (Bld) [#/Vol] 7.6 103/mcL High 0.9 - 4.3 10^3/mcL AO Workflow SS Lymphocytes/100 WBC (Bld) 60.0 % High 20.0 - 40.0 % AO Workflow SS MCH (RBC) [Entitic mass] 33.7 pg High 27.0 - 33.0 pg AO Workflow SS MCHC 33.3 G/dL Normal 32.0 - 36.0 G/dL AO Workflow SS MCV (RBC) [Entitic vol] 101.0 fL High 81.0 - 100.0 fL AO Workflow SS Monocytes (Bld) [#/Vol] 0.4 103/mcL Normal 0.1 - 1.4 10^3/mcL AO Workflow SS Monocytes/100 WBC (Bld) 3.0 % Normal 2.0 - 13.0 % AO Workflow SS Neutrophils (Bld) [#/Vol] 4.1 103/mcL Normal 2.3 - 8.1 10^3/mcL AO Workflow SS Neutrophils/100 WBC (Bld) 32.0 % Low 50.0 - 75.0 % AO Workflow SS Nucleated RBC 0.0 /100 WBC Invalid Interpretation Code AO Workflow SS Platelet mean volume (Bld) [Entitic vol] 8.6 fL Normal 6.4 - 10.5 fL AO Workflow SS Platelets (Bld) [#/Vol] 194 103/mcL Normal 150 - 450 10^3/mcL AO Workflow SS Platelets LM Ql (Bld) Normal *NA* (08/28/24 9:32 AM) Invalid Interpretation Code AO Workflow SS Potassium [Moles/Vol] 4.2 mmol/L Normal 3.5 - 5.1 mmol/L AO ADM SS Prostate specific Ag [Mass/Vol] 1.20 ng/mL Normal 0.00 - 4.00 ng/mL AO ADM SS Protein [Mass/Vol] 6.8 G/dL Normal 6.4 - 8.2 G/dL AO ADM SS RBC (Bld) [#/Vol] 4.10 106/mcL Low 4.50 - 6.0 0 10^6/mcL AO Workflow SS RBC morphology finding Nom (Bld) Normal *NA* (08/28/24 9:32 AM) Invalid Interpretation Code AO Workflow SS Smudge cells LM Ql (Bld) 1+ *NA* (08/28/24 9:32 AM) Invalid Interpretation Code AO Workflow SS Sodium [Moles/Vol] 140 mmol/L Normal 136 - 145 mmol/L AO ADM SS TSH Qn 5.17 m[IU]/L High 0.36 - 3.74 mcIU/mL AO ADM SS Urea nitrogen [Mass/Vol] 16 mg/dL Normal 7 - 18 mg/dL AO ADM SS Urea nitrogen/Creatinine [Mass ratio] 16 ratio Normal 7 - 27 ratio AO ADM SS Variant lymphocytes/100 WBC (Bld) 4.0 % Normal 0.0 - 5.0 % AO Workflow SS WBC (Bld) [#/Vol] 12.7 103/mcL High 4.5 - 10.8 10^3/mcL AO Workflow SS LABORATORYOrdered By: Paige Aldrich on 08-28-2024 Cholesterol [Mass/Vol] 106 mg/dL Normal 0 - 200 mg/dL AO ADM SS Comment on above: Interpretive Data: C holesterol Reference Interval: Less than 200 Desirable 200-239 Borderline high risk 240 and above High risk Cholesterol in HDL [Mass/Vol] 54 mg/dL Normal 40 - 60 mg/dL AO ADM SS Cholesterol in LDL [Mass/Vol] 35 mg/dL Normal 0 - 130 mg/dL AO ADM SS Triglyceride [Mass/Vol] 86 mg/dL Normal 0 - 150 mg/dL AO ADM SS Comment on above: Interpretive Data: T riglyceride Reference Interval: Less than 150 Normal 150-199 Borderline high risk 200-499 High risk 500 or higher Very high risk LABORATORYOrdered By: Kate Gray on 08-28-2024 HCV Ab IA Ql See Interp 6 *NA* (08/28/24 9:32 AM) Invalid Interpretation Code AH Chemistry S Comment on above: Result Comment: Clinical Interpretation: Nonreactive: Samples with a value < 0.80 are considered nonreactive (negative) for antibodies to HCV. A negative test result does not exclude the possibility of exposure to or infection with HCV. HCV antibodies may be undetectable in some stages of the infection and in some clinical conditions. HCV Ab IA Ql Non-Reactive (08/28/24 9:32 AM) Normal Non-Reactive ADM LIPIDon 08-28-2024 Cholesterol [Mass/Vol] 106 mg/dL Normal 0-200 [facility] Comment on above: Order Comment: cc re sults to [facility] Result Comment: Chol esterol Reference Interval: Less than 200 Desirable 200-239 Borderline high risk 240 and above High risk Performed By: #### P SA, CBC, FT4, LIPID, MORPH, A1C, GFR, DIFF, [id number], CMP, TSH ####[place] [address]#### HCV1, B12 ####[address] [address] Cholesterol in HDL [Mass/Vol] 54 mg/dL Normal 40-60 [facility] Comment on above: Order Comment: cc re sults to [facility] Performed By: #### P SA, CBC, FT4, LIPID, MORPH, A1C, GFR, DIFF, [id number], CMP, TSH ####[address] [address]#### HCV1, B12 ####[address] [address] Cholesterol in LDL [Mass/Vol] 35 mg/dL Normal 0-130 [facility] Comment on above: Order Comment: cc re [facility]ults to [place] [facility] Performed By: #### P SA, CBC, FT4, LIPID, MORPH, A1C, GFR, DIFF, [id number], CMP, TSH ####[place] [address]#### HCV1, B12 ####[place] [address] Triglyceride [Mass/Vol] 86 mg/dL Normal 0-150 [facility] Comment on above: Order Comment: cc re [facility]ults to [facility] Result Comment: Trig lyceride Reference Interval: Less than 150 Normal 150-199 Borderline high risk 200-499 High risk 500 or higher Very high risk Performed By: #### P SA, CBC, FT4, LIPID, MORPH, A1C, GFR, DIFF, [id number], CMP, TSH ####[place] [address]#### HCV1, B12 ####[place] [address] PSAon 08-28-2024 Prostate Specific Antigen 1.20 ng/mL Normal 0.00-4.00 [facility] Comment on above: Performed By: #### P SA, CBC, FT4, LIPID, MORPH, A1C, GFR, DIFF, [id number], CMP, TSH ####[place] [address]#### HCV1, B12 ####[place] [address] TSHon 08-28-2024 TSH Qn 5.17 m[IU]/L High 0.36-3.74 [facility] Comment on above: Performed By: #### P SA, CBC, FT4, LIPID, MORPH, A1C, GFR, DIFF, [id number], CMP, TSH ####[place] [address]#### HCV1, B12 ####[place] [address] .Auto Diffon 08-04-2024 Basophil, Absolute 0.0 10 3/mcL Normal 0.0-0.3 [facility] Comment on above: Performed By: #### A DONALD, GFR, LIP, CBC, CMP, MDW, ADIFF ####[place] [place], [place] [address] Basophils/100 WBC (Bld) 0.3 % Normal 0.0-2.5 [facility] Comment on above: Performed By: #### A DONALD, GFR, LIP, CBC, CMP, MDW, ADIFF ####[facility] [place], [place] [address] Eosinophil, Absolute 0.9 10 3/mcL High 0.0-0.7 [facility] Comment on above: Performed By: #### A DONALD, GFR, LIP, CBC, CMP, MDW, ADIFF ####[place] [address] [place], [place] [address] Eosinophils/100 WBC (Bld) 6.8 % High 0.0-6.0 [facility] Comment on above: Performed By: #### A DONALD, GFR, LIP, CBC, CMP, MDW, ADIFF ####[address] [address] Lymphocyte, Absolute 5.8 10 3/mcL High 0.9-4.3 [facility] Comment on above: Performed By: #### A DONALD, GFR, LIP, CBC, CMP, MDW, ADIFF ####[address] [address] Lymphocytes/100 WBC (Bld) 46.3 % High 20.0-40.0 [facility] Comment on above: Performed By: #### A DONALD, GFR, LIP, CBC, CMP, MDW, ADIFF ####[facility] [place] [address] Monocyte, Absolute 0.6 10 3/mcL Normal 0.1-1.4 [facility] Comment on above: Performed By: #### A DONALD, GFR, LIP, CBC, CMP, MDW, ADIFF ####[address] [address] Monocytes/100 WBC (Bld) 4.6 % Normal 2.0-13.0 [facility] Comment on above: Performed By: #### A DONALD, GFR, LIP, CBC, CMP, MDW, ADIFF ####[place] [address] [place], [place] [address] Neutrophils/100 WBC (Bld) 42.0 % Low 50.0-75.0 [facility] Comment on above: Performed By: #### A DONALD, GFR, LIP, CBC, CMP, MDW, ADIFF ####[place] [address] [place], [place] [address] .GFRon 08-04-2024 Estimated Glomerular Filtration Rate 76 ml/min/1.73sqm Normal [facility] Comment on above: Result Comment: Stages of Chronic Kidney Disease (CKD) Stage Description eGFR(ml/min/1.73 sq.m.) CKD 1 Normal kidney function or >=90 normal kindney function with possible kidney damage (ex. Proteinuria) CKD 2 Kidney damage with mild loss 60-89 of kidney function CKD 3a Mild to moderate loss of kidney 45-59 function CKD 3b Moderate to severe loss of 30-44 of kindey function CKD 4 Severe loss of kidney function 15-29 CKD 5 Kidney failure <15 Note: (go live 2024) the eGFR calculation was updated to the 2020 CKD-EPI creatinine equation without a race factor to calculate the eGFR results. Performed By: #### A DONALD, GFR, LIP, CBC, CMP, MDW, ADIFF ####[place] [address] [place], [place] [address] .MDWon 08-04-2024 Monocyte Distribution Width 19.66 Normal 0.00-20.00 [facility] Comment on above: Result Comment: For ED adult patients suspected of sepsis, MDW<=20.0 does not rule out sepsis or risk of sepsis Performed By: #### A DONALD, GFR, LIP, CBC, CMP, MDW, ADIFF ####[place] [address] [place], [place] [address] .NEUABSon 08-04-2024 Neutrophil, Absolute 5.2 10 3/mcL Normal 2.3-8.1 [facility] Comment on above: Performed By: #### A DONALD, GFR, LIP, CBC, CMP, MDW, ADIFF ####[place] [address] [place], [place] [address] CBCon 08-04-2024 Erythrocyte distribution width (RBC) [Ratio] 13.5 % Normal 11.5-15.5 [facility] Comment on above: Performed By: #### A DONALD, GFR, LIP, CBC, CMP, MDW, ADIFF ####[place] [address] [place], [place] [address] Hematocrit (Bld) [Volume fraction] 39.4 % Low 40.0-52.0 [facility] Comment on above: Performed By: #### A DONALD, GFR, LIP, CBC, CMP, MDW, ADIFF ####[place] [address] [place] [address] Hgb 13.2 G/dL Normal 13.0-17.5 [facility] Comment on above: Performed By: #### A DONALD, GFR, LIP, CBC, CMP, MDW, ADIFF ####[place] [address] [place], [place] [address] MCH (RBC) [Entitic mass] 33.3 pg High 27.0-33.0 [facility] Comment on above: Performed By: #### A DONALD, GFR, LIP, CBC, CMP, MDW, ADIFF ####[place] [address] [place], [place] [address] MCHC 33.4 G/dL Normal 32.0-36.0 [facility] Comment on above: Performed By: #### A DONALD, GFR, LIP, CBC, CMP, MDW, ADIFF ####[place] [address] [place], [place] [address] MCV (RBC) [Entitic vol] 99.7 fL Normal 81.0-100.0 [facility] Comment on above: Performed By: #### A DONALD, GFR, LIP, CBC, CMP, MDW, ADIFF ####[place] [address] [place] [id number] Platelet 223 10 3/mcL Normal 150-450 [facility] Comment on above: Performed By: #### A DONALD, GFR, LIP, CBC, CMP, MDW, ADIFF ####[place] [address] [place], [place] [address] Platelet mean volume (Bld) [Entitic vol] 8.5 fL Normal 6.4-10.5 [facility] Comment on above: Performed By: #### A DONALD, GFR, LIP, CBC, CMP, MDW, ADIFF ####[place] [address] [place], [place] [address] RBC 3.96 10 6/mcL Low 4.50-6.00 [facility] Comment on above: Performed By: #### A DONALD, GFR, LIP, CBC, CMP, MDW, ADIFF ####[place] [address] [place], [place] [address] WBC 12.5 10 3/mcL High 4.5-10.8 [facility] Comment on above: Performed By: #### A DONALD, GFR, LIP, CBC, CMP, MDW, ADIFF ####[place] [address] [place], [place] [address] CMPon 08-04-2024 BUN/Creatinine Ratio 23 ratio Normal 7-27 [facility] Comment on above: Performed By: #### A DONALD, GFR, LIP, CBC, CMP, MDW, ADIFF ####[place] [address] [place], [place] [address] Creatinine [Mass/Vol] 1.06 mg/dL Normal 0.67-1.17 [facility] Comment on above: Performed By: #### A DONALD, GFR, LIP, CBC, CMP, MDW, ADIFF ####[facility] [place], [place] [address] Albumin Level 3.5 G/dL Normal 3.4-4.8 [facility] Comment on above: Performed By: #### A DONALD, GFR, LIP, CBC, CMP, MDW, ADIFF ####[place] [address] [place], [place] [address] Albumin/Globulin [Mass ratio] 0.9 {ratio} Low 1.1-2.5 [facility] Comment on above: Performed By: #### A DONALD, GFR, LIP, CBC, CMP, MDW, ADIFF ####[facility] [place], [place] [address] ALP [Catalytic activity/Vol] 96 U/L Normal 40-135 [facility] Comment on above: Performed By: #### A DONALD, GFR, LIP, CBC, CMP, MDW, ADIFF ####[facility] [place], [place] [address] ALT [Catalytic activity/Vol] 26 U/L Normal 16-63 [facility] Comment on above: Performed By: #### A DONALD, GFR, LIP, CBC, CMP, MDW, ADIFF ####[facility] [place], [place] [address] AST [Catalytic activity/Vol] 14 U/L Normal 10-40 [facility] Comment on above: Performed By: #### A DONALD, GFR, LIP, CBC, CMP, MDW, ADIFF ####[facility] [place], [place] [address] Bili Total 0.3 mg/dL Normal 0.2-1.0 [facility] Comment on above: Result Comment: Use of this assay is not recommended for patients undergoing treatment with eltrombopag due to the potential for falsely elevated results. Performed By: #### A DONALD, GFR, LIP, CBC, CMP, MDW, ADIFF ####[facility] [place], [place] [address] Calcium [Mass/Vol] 8.9 mg/dL Normal 8.4-10.2 [facility] Comment on above: Performed By: #### A DONALD, GFR, LIP, CBC, CMP, MDW, ADIFF ####[facility] [place], [place] [address] Chloride [Moles/Vol] 105 mmol/L Normal 98-107 [facility] Comment on above: Performed By: #### A DONALD, GFR, LIP, CBC, CMP, MDW, ADIFF ####[facility] [place], [place] [address] CO2 [Moles/Vol] 29 mmol/L Normal 23-31 [facility] Comment on above: Performed By: #### A DONALD, GFR, LIP, CBC, CMP, MDW, ADIFF ####[facility] [address] [place], [place] [address] Electrolyte Balance 6.0 mEq/L Normal 4.0-15.0 [facility] Comment on above: Performed By: #### A DONALD, GFR, LIP, CBC, CMP, MDW, ADIFF ####[place] [address] [place], [place] [address] Globulin 3.7 G/dL Normal 2.7-4.4 [facility] Comment on above: Performed By: #### A DONALD, GFR, LIP, CBC, CMP, MDW, ADIFF ####[place] [address] [place], [place] [address] Glucose [Mass/Vol] 120 mg/dL High 83-110 [facility] Comment on above: Performed By: #### A DONALD, GFR, LIP, CBC, CMP, MDW, ADIFF ####[place] [address] [place], [place] [address] Potassium [Moles/Vol] 4.8 mmol/L Normal 3.5-5.1 [facility] Comment on above: Performed By: #### A DONALD, GFR, LIP, CBC, CMP, MDW, ADIFF ####[place] [address] [place], [place] [address] Sodium [Moles/Vol] 140 mmol/L Normal 136-145 [facility] Comment on above: Performed By: #### A DONALD, GFR, LIP, CBC, CMP, MDW, ADIFF ####[address] [place], [place] [address] Total Protein 7.2 G/dL Normal 6.4-8.2 [facility] Comment on above: Performed By: #### A DONALD, GFR, LIP, CBC, CMP, MDW, ADIFF ####[address] [address] [place], [place] [address] Urea nitrogen [Mass/Vol] 24 mg/dL High 7-18 [facility] Comment on above: Performed By: #### A DONALD, GFR, LIP, CBC, CMP, MDW, ADIFF ####[facility] [place], [place] [address] CT ABD/PELVIS W/ IV CONTRAST ONLYon 08-04-2024 CT ABD/PELVIS W/ IV CONTRAST ONLY ORIGINAL EXAMINATION: CT OF THE ABDOMEN AND PELVIS WITH CONTRAST 08/04/2024 2:35 pm TECHNIQUE: CT of the abdomen and pelvis was performed with the administration of intravenous contrast. Multiplanar reformatted images are provided for review. Automated exposure control, iterative reconstruction, and/or weight based adjustment of the mA/kV was utilized to reduce the radiation dose to as low as reasonably achievable. COMPARISON: CT 02/03/2024. HISTORY: ORDERING SYSTEM PROVIDED HISTORY: Reason for Exam: pain FINDINGS: Mild posterior dependent atelectasis in lung bases. Normal heart size. Multiple calcified splenic granulomas. Normal liver, adrenal glands, gallbladder and common duct, kidneys and ureters. No ventral abdominal or inguinal hernia. Slightly distended colon and small bowel, fluid-filled. No bowel wall thickening. No free fluid or pneumoperitoneum. Unchanged left para-aortic lymph node, measuring 1.3 cm in short axis. Left-sided inguinal lymph nodes have improved in size, now measuring just under 1 cm. Thickened trabeculated pattern of the bladder, consistent with chronic outlet obstruction versus cystitis, as before. Slightly enlarged prostate. No aggressive osseous lesions. IMPRESSION: No evidence of bowel obstruction. Some bowel loops are fluid-filled, which may be seen in diarrheal state. No abdominal hernia demonstrated. Improved left inguinal lymph node size since 02/03/2024. Unchanged left para-aortic prominent lymph node. Interpreted by: Mildred Andrade Preliminary Report By: Mildred Andrade Electronically signed By Mildred Andrade Dictated Date: 08/04/2024 2:50:16 PM Prelim Date: 08/04/2024 3:08:59 PM Sign Date: 08/04/2024 3:08:59 PM Ordering Provider: FRANK Fine [facility] LABORATORYOrdered By: Ruby Rosario on 08-04-2024 Appearance (U) Slightly Cloudy *ABN* (08/04/24 3:21 PM) Invalid Interpretation Code Clear AO Auto Urine SS Bacteria LM.HPF (Urine sed) [#/Area] 3 /[HPF] Invalid Interpretation Code Negative AO Auto Urine SS Bilirubin Ql (U) Negative (08/04/24 3:21 PM) Normal Negative AO Auto Urine SS Color (U) Yellow (08/04/24 3:21 PM) Normal AO Auto Urine SS Glucose Test strip (U) [Mass/Vol] Negative Normal Negative AO Auto Urine SS Hemoglobin Auto test strip (U) [Mass/Vol] Small *ABN* (08/04/24 3:21 PM) Invalid Interpretation Code Negative AO Auto Urine SS Ketones Ql (U) Negative Normal Negative AO Auto Urine SS UA Leuk Est Moderate *ABN* (08/04/24 3:21 PM) Invalid Interpretation Code Negative AO Auto Urine SS UA Nitrite Positive *ABN* (08/04/24 3:21 PM) Invalid Interpretation Code Negative AO Auto Urine SS UA pH 6.0 (08/04/24 3:21 PM) Normal 5.0 - 8.0 AO Auto Urine SS UA Protein Negative Normal Negative AO Auto Urine SS UA RBC 5-10 /HPF Invalid Interpretation Code 0-2 AO Auto Urine SS UA Spec Grav 1.010 *ABN* (08/04/24 3:21 PM) Invalid Interpretation Code 1.015-1.025 AO Auto Urine SS UA Specimen Type Void (08/04/24 3:21 PM) Normal AO Auto Urine SS UA Squam Epithelial 3-5 /HPF Normal 0-20 AO Au to Urine SS UA Urobilinogen 0.2 E.U./dL Normal 0.2-1.0 AO Auto Urine SS WBC LM.HPF (Urine sed) [#/Area] 50-100 /HPF Invalid Interpretation Code 0-5 AO Auto Urine SS LABORATORYOrdered By: SYSTEM SYSTEM on 08-04-2024 Albumin BCP dye [Mass/Vol] 3.5 G/dL Normal 3.4 - 4.8 G/dL AO ADM SS Albumin/Globulin [Mass ratio] 0.9 {ratio} Low 1.1 - 2.5 ratio AO ADM SS ALP [Catalytic activity/Vol] 96 U/L Normal 40 - 135 U/L AO ADM SS ALT With P-5'-P [Catalytic activity/Vol] 26 U/L Normal 16 - 63 U/L AO ADM SS AST With P-5'-P [Catalytic activity/Vol] 14 U/L Normal 10 - 40 U/L AO ADM SS Basophils (Bld) [#/Vol] 0.0 103/mcL Normal 0.0 - 0.3 10^3/mcL AO Workflow SS Basophils/100 WBC (Bld) 0.3 % Normal 0.0 - 2.5 % AO Workflow SS Bilirubin [Mass/Vol] 0.3 mg/dL Normal 0.2 - 1 .0 mg/dL AO ADM SS Comment on above: Interpretive Data: U se of this assay is not recommended for patients undergoing treatment with eltrombopag due to the potential for falsely elevated results. Calcium [Mass/Vol] 8.9 mg/dL Normal 8.4 - 10. 2 mg/dL AO ADM SS Chloride [Moles/Vol] 105 mmol/L Normal 98 - 10 7 mmol/L AO ADM SS CO2 [Moles/Vol] 29 mmol/L Normal 23 - 31 mmol/L AO ADM SS Creatinine [Mass/Vol] 1.06 mg/dL Normal 0.67 - 1.17 mg/dL AO ADM SS Electrolyte Balance 6.0 mEq/L Normal 4.0 - 15 .0 mEq/L AO ADM SS Eosinophil, Absolute 0.9 103/mcL High 0.0 - 0 .7 10^3/mcL AO Workflow SS Eosinophils/100 WBC (Bld) 6.8 % High 0.0 - 6.0 % AO Workflow SS Erythrocyte distribution width (RBC) [Ratio] 13.5 % Normal 11.5 - 15.5 % AO Workflow SS Estimated Glomerular Filtration Rate 76 ml/min/1.73sqm Invalid Interpretation Code AO Chemistry S Comment on above: Interpretive Data: Stages of Chronic Kidney Disease (CKD) Stage Description eGFR(ml/min/1.73 sq.m.) CKD 1 Normal kidney function or >=90 normal kindney function with possible kidney damage (ex. Proteinuria) CKD 2 Kidney damage with mild loss 60-89 of kidney function CKD 3a Mild to moderate loss of kidney 45-59 function CKD 3b Moderate to severe loss of 30-44 of kindey function CKD 4 Severe loss of kidney function 15-29 CKD 5 Kidney failure <15 Note: (go live 2024) the eGFR calculation was updated to the 2020 CKD-EPI creatinine equation without a race factor to calculate the eGFR results. Globulin 3.7 G/dL Normal 2.7 - 4.4 G/dL AO ADM SS Glucose [Mass/Vol] 120 mg/dL High 83 - 110 mg/dL AO ADM SS Hematocrit (Bld) [Volume fraction] 39.4 % Low 40.0 - 52.0 % AO Workflow SS Hemoglobin (Bld) [Mass/Vol] 13.2 G/dL Normal 13.0 - 17.5 G/dL AO Workflow SS Lipase [Catalytic activity/Vol] 134 U/L High 16 - 77 U/L AO ADM SS Lymphocytes (Bld) [#/Vol] 5.8 103/mcL High 0.9 - 4.3 10^3/mcL AO Workflow SS Lymphocytes/100 WBC (Bld) 46.3 % High 20.0 - 40.0 % AO Workflow SS MCH (RBC) [Entitic mass] 33.3 pg High 27.0 - 33.0 pg AO Workflow SS MCHC 33.4 G/dL Normal 32.0 - 36.0 G/dL AO Workflow SS MCV (RBC) [Entitic vol] 99.7 fL Normal 81.0 - 100.0 fL AO Workflow SS Monocyte distribution width Auto (Bld) [Entitic vol] 19.66 1 Normal 0.00 - 20.00 AO Workflow SS Comment on above: Result Comment: For ED adult patients suspected of sepsis, MDW<=20.0 does not rule out sepsis or risk of sepsis Monocytes (Bld) [#/Vol] 0.6 103/mcL Normal 0.1 - 1.4 10^3/mcL AO Workflow SS Monocytes/100 WBC (Bld) 4.6 % Normal 2.0 - 13.0 % AO Workflow SS Neutrophils (Bld) [#/Vol] 5.2 103/mcL Normal 2.3 - 8.1 10^3/mcL AO Workflow SS Neutrophils/100 WBC (Bld) 42.0 % Low 50.0 - 75.0 % AO Workflow SS Platelet mean volume (Bld) [Entitic vol] 8.5 fL Normal 6.4 - 10.5 fL AO Workflow SS Platelets (Bld) [#/Vol] 223 103/mcL Normal 150 - 450 10^3/mcL AO Workflow SS Potassium [Moles/Vol] 4.8 mmol/L Normal 3.5 - 5.1 mmol/L AO ADM SS Protein [Mass/Vol] 7.2 G/dL Normal 6.4 - 8.2 G/dL AO ADM SS RBC (Bld) [#/Vol] 3.96 106/mcL Low 4.50 - 6.0 0 10^6/mcL AO Workflow SS Sodium [Moles/Vol] 140 mmol/L Normal 136 - 145 mmol/L AO ADM SS Urea nitrogen [Mass/Vol] 24 mg/dL High 7 - 18 mg/dL AO ADM SS Urea nitrogen/Creatinine [Mass ratio] 23 ratio Normal 7 - 27 ratio AO ADM SS WBC (Bld) [#/Vol] 12.5 103/mcL High 4.5 - 10.8 10^3/mcL AO Workflow SS LIPon 08-04-2024 Lipase Level 134 U/L High 16-77 [facility] Comment on above: Performed By: #### A DONALD, GFR, LIP, CBC, CMP, MDW, ADIFF ####[address] [place] [address] UAon 08-04-2024 Color (U) Yellow Normal [facility] Comment on above: Performed By: #### U A, UAMIC ####[address] [place] [address] Glucose (U) [Mass/Vol] Negative Normal Negative [facility] Comment on above: Performed By: #### U A, UAMIC ####Brid[address] [place] [address] Ketones Ql (U) Negative Normal Negative [facility] Comment on above: Performed By: #### U A, UAMIC ####Brid[address] [place] [address] UA Appear Slightly Cloudy Abnormal Clear [facility] Comment on above: Performed By: #### U A, UAMIC ####[address] [place] [address] UA Blood Small Abnormal Negative [facility] Comment on above: Performed By: #### U A, UAMIC ####[address] [place], [place] [address] UA Leuk Est Moderate Abnormal Negative [facility] Comment on above: Performed By: #### U A, UAMIC ####Brid[address] [address] UA Nitrite Positive Abnormal Negative [facility] Comment on above: Performed By: #### U A, UAMIC ####[address] [place], [place] [address] UA pH 6.0 Normal 5.0 - 8.0 [facility] Comment on above: Performed By: #### U A, UAMIC ####[address] [place] [address] UA Protein Negative Normal Negative [facility] Comment on above: Performed By: #### U A, UAMIC ####[address] [place] [address] UA Spec Grav 1.010 Abnormal 1.015-1.025 [facility] Comment on above: Performed By: #### U A, UAMIC ####[address] [place] [address] UA Specimen Type Void Normal [facility] Comment on above: Performed By: #### U A, UAMIC ####Brid[address] [address] UA Urobilinogen 0.2 E.U./dL Normal 0.2-1.0 [facility] Comment on above: Performed By: #### U A, UAMIC ####[address] [address] Urobilinogen (U) [Mass/Vol] Negative Normal Negative [facility] Comment on above: Performed By: #### U A, UAMIC ####[address]rid[address] [address] UAMICon 08-04-2024 UA Bacteria 3+ /hpf Abnormal Negative [facility] Comment on above: Performed By: #### U A, UAMIC ####[address] [place] [address] UA RBC 5-10 Abnormal 0-2 [facility] Comment on above: Performed By: #### U A, UAMIC ####[address] [address] UA Squam Epithelial 3-5 Normal 0-20 [facility] Comment on above: Performed By: #### U A, UAMIC ####[address] [place], [place] [address] UA WBC 50-100 Abnormal 0-5 [facility] Comment on above: Performed By: #### U A, UAMIC ####[address] [place], [place] [address] CBC W/Diff, Automatedon 05-0 PATH REV Reviewed Normal [facility] Comment on above: Result Comment: SEE REPORT IN PATIENT'S EMR AMENDED REPORT 08/02/24 1114 PATH REV previously reported as: August Performed By: #### L 100.0100, L504.2610, L500.4050 #### [facility] [address] [place], [address] Pulmonary Visit Reporton Pulmonary Visit Report [facility] [place] [facility] [address] [place] [address] OFFICE VISIT Date of Service: 07/17/24 MR#: [id number] Acct: [id number] Name: RADHA BRENNAN Rep #: [id number] : 1955 Provider: Santa Hawthorne NP Age/Sex: 68/M [facility] Status: Signed Assessment and Plan Assessment and Plan (1) COPD (chronic obstructive pulmonary disease): Status: Chronic Qualifiers: COPD type: emphysema Emphysema type: unspecified Qualified Code(s): J43.9 - Emphysema, unspecified Plan: PFT is consistent with COPD. There is emphysema seen on his CT imaging. I believe that the patient is unaware of his current pulmonary limitation. While he denies cough he is coughing during the evaluation today. I have recommended that he trial Breztri 2 puffs twice daily with a spacer. I have given him samples for use. The patient is to notify this practice if he has worsening respiratory symptoms. (2) Nicotine dependence, cigarettes, uncomplicated: Status: Chronic Plan: Continue to follow with Dr. Mathew for lymphoma. Smoking cessation is warranted. I have asked if patient is willing to quit smoking today and he is not willing to pursue cessation at this time. (3) Solitary lung nodule: Status: Acute Plan: I recommend a noncontrasted chest CT at this time to complete the follow-up of the solitary lung nodule that was identified in September 2022 at the left lower lobe. If the nodule remains stable then no further follow-up of this nodule will be necessary. He will then resume annual LDCT imaging. Orders: Orders Chest without Contrast 07/17/24 R91.1 - Solitary pulmonary nodule Medications: New pemrfnrspi-opsgfqtz-xryqnw prabha 160-9-4.8 mcg/actuation ([employer]) 2 inhalations inhalation BID 10.7 grams 11RF Plan Details Follow Up: 6 Weeks (LMR) HPI HPI Comments Details: This 68-year-old male patient presents to the office today to discuss recent test results. He is ambulatory, currently on room air. He is accompanied today by his friend. He has not had recent bronchitis or pneumonia, he has not required antibiotics or prednisone since last evaluation. 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 He is following with Dr. Mathew who recently ordered a PET/CT from March 20, 2024 which the field quantitative criteria for viable neoplasm in the bilateral axilla, right recto pectoral region and right and left thoracic perihilar and left inguinal region. He is not currently on any inhalers. He continues to smoke cigarettes. Currently smoking 0.5-1 pack/day. The patient denies shortness of breath, cough, wheeze. He denies chest tightness, chest palpitations. He denies any fever, chills or body aches. Documentation reviewed today includes: PFT from May 08, 2024 which shows irreversible mild large airway obstructive ventilatory defect with findings suggestive of hyperinflation and air trapping. 6-minute walk test from May 15, 2024 shows abel oxygen saturation of 93%. The study represents a significant exertional oxygen desaturation consistent with a pulmonary limitation to exercise tolerance. There is no indication for the use of supplemental oxygen at this time, however close interval follow-up is warranted. Intake Vital Signs 04/11/24 15:00 07/17/24 12:49 Height 5 ft 11 in 5 ft 8.5 in Weight: 140 lb BMI 20.9 BP 103/60 Blood Pressure Location Lt brachial Position Sitting Respiration 20 H Pulse 55 L Pulse Source Monitor Temp 97.3 F L Temperature Source Temporal Artery Pulse Oximetry (%) 96 Oxygen Delivery Method room air Intake Visit Reasons: Discuss PFT results Chief Complaint: Lymphoma Finishing Range Operator Required: No DME Vendor: n/a Accompanied by: Daughter Is patient in pain?: No Allergies bee venom protein (honey bee) Allergy (Severe, Verified 07/17/24 14:43) Anaphylaxis tuberculin, purified protein deriva Allergy (Severe, Verified 07/17/24 14:43) Swelling Medications ???Medication ???Instructions ???Recorded ???Confirmed ???Type acetaminophen 500 mg capsule 1,000 mg (2 x 500 mg) PO Q6H PRN 1 04/26/21 07/17/24 Rx pain #120 caps folic acid 1 mg tablet 1 mg PO DAILY supplement #90 tabs 03/30/22 07/17/24 Rx magnesium oxide 400 mg (241.3 mg 400 mg PO DAILY supplement #90 tab s 03/30/22 07/17/24 Rx magnesium) tablet ascorbate calcium (vitamin C) 500 500 mg PO DAILY vitamin #90 tabs 06/16/22 07/17/24 Rx mg tablet aspirin 81 mg tablet,delayed 81 mg PO DAILY heart health #90 07/17/24 Rx release (Adult Aspirin Regimen) tabs ferrous sulfate 325 mg (65 mg 325 mg PO DAILY supplement #90 tab s 06/16/22 07/17/24 Rx iron) tablet (FeroSul) (more content not included)... Normal [facility] Absolute lymphocyte countOrd ered By: Rita Mathew on 07-10-2024 Lymphocytes Auto (Unsp spec) [#/Vol] 8.55 10*3/uL High 0.83-4.51 [facility] Absolute neutrophil countOrd ered By: Rita Mathew on 07-10-2024 Neutrophils (Bld) [#/Vol] 4.0 10*3/uL 2.0-7.7 [facility] Anion gap in Serum or Plasma Ordered By: Rita Mathew on 07-10-2024 Anion gap [Moles/Vol] 9 mmol/L 5-15 [facility] Automated lymphocyte count a s percentage of total leukocytesOrdered By: Rita Mathew on 07-10-2024 Lymphocytes/100 WBC Auto (Unsp spec) 54.3 % High 19-41 [facility] BUN/creatinine ratioOrdered By: Rita Mathew on 07-10-2024 Urea nitrogen/Creatinine [Mass ratio] 16.2 mg/mg 10-20 [facility] Basophil percentageOrdered B y: Rita Mathew on 07-10-2024 Basophils/100 WBC (Bld) 0.1 % 0-1 [facility] Bilirubin, totalOrdered By: Rita Mathew on 07-10-2024 Bilirubin [Mass/Vol] 0.20 mg/dL 0.00-1.30 [facility] Blood manual differential co mment interpretation (narrative result)Ordered By: Rita Mathew on 07-10-2024 Manual differential comment Bari (Bld) [Interp] SCANNED [facility] Comment on above: LYMPHOCYTOSIS NOTEDM ONOCYTOSIS NOTED Carbon dioxide, total [Moles /volume] in Central venous bloodOrdered By: Rita Mathew on 07-10-2024 CO2 [Moles/Vol] 27.3 mmol/L 21.0-32.0 [facility] Chloride assayOrdered By: Shahzad Mathew on 07-10-2024 Chloride [Moles/Vol] 106 mmol/L 98-108 [facility] Comprehensive Metabolic Prof ilon 07-10-2024 Albumin [Mass/Vol] 3.9 g/dL Normal 3.4-4.8 [facility] Comment on above: Performed By: #### L 100.0100, L504.2610, L500.4050 #### [facility] [address] [place], [place], [id number] Albumin/Globulin [Mass ratio] 1.4 {ratio} Normal 0.9-2.4 [facility] Comment on above: Performed By: #### L 100.0100, L504.2610, L500.4050 #### [facility] [address] [place], [address] ALK PHOS 95 U/L Normal 40-129 [facility] Comment on above: Performed By: #### L 100.0100, L504.2610, L500.4050 #### [facility] [address] [place], [address] ALT [Catalytic activity/Vol] 30 U/L Normal <=46 [facility] Comment on above: Performed By: #### L 100.0100, L504.2610, L500.4050 #### [facility] [address] [place], [address] AST [Catalytic activity/Vol] 31 U/L Normal <=37 [facility] Comment on above: Performed By: #### L 100.0100, L504.2610, L500.4050 #### [facility] [address] [place], [address] Bilirubin [Mass/Vol] 0.20 mg/dL Normal 0.00-1.30 [facility] Comment on above: Performed By: #### L 100.0100, L504.2610, L500.4050 #### [facility] [address] [place], [address] BUN/CRE 16.2 RATIO Normal 10-20 [facility] Comment on above: Performed By: #### L 100.0100, L504.2610, L500.4050 #### [facility] [address] [place], [address] Calcium [Mass/Vol] 8.7 mg/dL Normal 7.6-11.0 [facility] Comment on above: Performed By: #### L 100.0100, L504.2610, L500.4050 #### [facility] [address] [place], [address] Chloride [Moles/Vol] 106 mmol/L Normal 98-108 [facility] Comment on above: Performed By: #### L 100.0100, L504.2610, L500.4050 #### [facility] [address] [place], [address] CO2 [Moles/Vol] 27.3 mmol/L Normal 21.0-32.0 [facility] Comment on above: Performed By: #### L 100.0100, L504.2610, L500.4050 #### [facility] [address] [place], [address] Creatinine [Mass/Vol] 1.14 mg/dL Normal 0.70-1.20 [facility] Comment on above: Performed By: #### L 100.0100, L504.2610, L500.4050 #### [facility] [address] [place], [address] ECRCL 55.03 ml/min Normal 50-250 [facility] Comment on above: Performed By: #### L 100.0100, L504.2610, L500.4050 #### [facility] [address] [place], [address] GAP 9 Normal 5-15 [facility] Comment on above: Performed By: #### L 100.0100, L504.2610, L500.4050 #### [facility] [address] [place], [address] GFR/1.73 sq M.predicted among non-blacks MDRD (S/P/Bld) [Vol rate/Area] 70 mL/min/{1.73_m2} Normal >60 [facility] Comment on above: Result Comment: mL/m in/1.73m2 CKD-EPI Creatinine Equation (2020) Performed By: #### L 100.0100, L504.2610, L500.4050 #### [facility] [address] [place], [address] Globulin (S) [Mass/Vol] 2.8 g/dL Normal 2.2-4.2 [facility] Comment on above: Performed By: #### L 100.0100, L504.2610, L500.4050 #### [facility] [address] [place], [address] Glucose [Mass/Vol] 111 mg/dL High 70-99 [facility] Comment on above: Performed By: #### L 100.0100, L504.2610, L500.4050 #### [facility] [address] [place], [address] Potassium [Moles/Vol] 3.9 mmol/L Normal 3.3-5.1 [facility] Comment on above: Performed By: #### L 100.0100, L504.2610, L500.4050 #### [facility] [address] [place], [address] Sodium [Moles/Vol] 142 mmol/L Normal 133-145 [facility] Comment on above: Performed By: #### L 100.0100, L504.2610, L500.4050 #### [facility] [address] [place], [address] T PROT 6.7 g/dL Normal 5.9-8.4 [facility] Comment on above: Performed By: #### L 100.0100, L504.2610, L500.4050 #### [facility] [address] [place], [address] Urea nitrogen [Mass/Vol] 19 mg/dL Normal 4-19 [facility] Comment on above: Performed By: #### L 100.0100, L504.2610, L500.4050 #### [facility] [address] [place], [address] Eosinophil percentageOrdered By: Rita Mathew on 07-10-2024 Eosinophils/100 WBC (Bld) 10.2 % High 0-5 [facility] Erythrocyte distribution wid th ratioOrdered By: Rita Mathew on 07-10-2024 Erythrocyte distribution width (RBC) [Ratio] 13.1 % 11.6-14.6 [facility] Erythrocyte distribution wid th standard deviationOrdered By: Rita Mathew on 07-10-2024 Erythrocyte distribution width (RBC) [Ratio] 47.9 fl High 35.1-43.9 [facility] Glomerular filtration rate ( GFR) estimation/1.73 sq m using serum, plasma, or whole bOrdered By: Rita Mathew on 07-10-2024 GFR/1.73 sq M.predicted among non-blacks MDRD (S/P/Bld) [Vol rate/Area] 70 mL/min/{1.73_m2} >60 [facility] Comment on above: mL/min/1.73m2 CKD-EP I Creatinine Equation (2020) Hematocrit Auto (Bld) [Volum e fraction]Ordered By: Rita Mathew on 07-10-2024 Hematocrit (Bld) [Volume fraction] 40.7 % 40-54 [facility] Hemoglobin measurementOrdere d By: [facility] on 07-10-2024 Hemoglobin (Bld) [Mass/Vol] 13.5 g/dL 13.0-16.5 [facility] Immature granulocytes/100 WB C Auto (Bld)Ordered By: Rita Mathew on 07-10-2024 Immature granulocytes/100 WBC (Bld) 0.100 % 0.0-0.9 [facility] Comment on above: IG% - Immature Granu locytes (promyelocytes, myelocytes and metamyelocytes) > 1% indicates that a LEFT SHIFT is Present. LDHon 07-10-2024 LDH 155 U/L Normal 87-241 [facility] Comment on above: Order Comment: 1 Performed By: #### L 100.0100, L504.2610, L500.4050 #### [facility] [address] [place], [place], [id number] Laboratory - Chemistry and C hemistry - challengeOrdered By: Rita Mathew on 07-10-2024 AST [Catalytic activity/Vol] 31 U/L <38 [facility] Lactate dehydrogenase (LDH) measurementOrdered By: [facility] on 07-10-2024 LDH [Catalytic activity/Vol] 155 U/L 87-241 [facility] MCV (mean corpuscular volume ) determinationOrdered By: Rita Mathew on 07-10-2024 MCV (RBC) [Entitic vol] 99.8 fL High 80-94 [facility] Mean corpuscular hemoglobin (MCH) determinationOrdered By: [facility] on 07-10-2024 MCH (RBC) [Entitic mass] 33.1 pg High 27.0-32.0 [facility] Mean corpuscular hemoglobin concentration (MCHC) determinationOrdered By: [facility] on 07-10-2024 MCHC (RBC) [Mass/Vol] 33.2 g/dL 32-36 [facility] Mean platelet volume determi nationOrdered By: [facility] on 07-10-2024 Platelet mean volume (Bld) [Entitic vol] 10.0 fL 6.2-12.0 [facility] Monocyte percentageOrdered B y: [facility] on 07-10-2024 Monocytes/100 WBC (Bld) 9.8 % 0-10 [facility] Neutrophil percentageOrdered By: [facility] on 07-10-2024 Neutrophils/100 WBC (Bld) 25.5 % Low 47-70 [facility] Nucleated red blood cell per centageOrdered By: [facility] on 07-10-2024 Nucleated RBC/100 WBC (Bld) [Ratio] 0 % 0-5 [facility] Oncology Visit Reporton 04 Oncology Visit Report [facility] [address] [place] [address] OFFICE VISIT Date of Service: 07/10/2447 MR#: [id number] Acct: [id number] Name: RADHA BRENNAN Michelle Rep #: [id number] : 1955 From: Aide Mcdonnell NP CABLE REELER -C Age/Sex: 68/M [place] [facility] [place] Status: Signed HPI Subjective Date of Service 07/10/24 Chief Complaint Lymphoma History of Present Illness 68-year-old male who presented with a few months history of progressively enlarging painless lymph nodes first noted in the groins then the axillae and finally the neck. No B symptoms. 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 Flow cytometry was performed consistent with the above diagnosis. March 20, 2024 PET/CT: IMPRESSION: 1. Increased radiopharmaceutical concentration defined in the bilateral axilla, right retropectoral region, right and left thoracic perihilum, and left inguinal region fulfill quantitative criteria for viable neoplasm. (Mikel, et al, Journal of Clinical Oncology, 32: 3059, 2014). 2. Overall, compared to the prior FDG-PET CT study dated 02/15/2023, there is interim development of defined viable neoplastic disease. Interval History The patient is presenting to clinic today accompanied by adult daughter, Adela for routine 3-month follow-up. He denies any concerns related to today's visit. He specifically denies weight loss, night sweats, dysphagia, abdominal pain, overt bleeding/abnormal bruising, and swelling or pain of his extremities???with the exception of right upper extremity. Reports it swells intermittently since right axillary lymph node biopsy. Patient reports enlarged lymph nodes within bilateral axilla and groin are unchanged in size and remain nontender. [facility] Medical History Small lymphocytic lymphoma Prediabetes Lung nodules Iron deficiency Insomnia Folic acid deficiency Costochondritis Cognitive impairment Cachexia GERD (gastroesophageal reflux disease) Small cell B-cell lymphoma Wears dentures Wears glasses Depression Alcohol use High cholesterol Excessive bleeding Migraine headache Injury of head and neck Parkinson's disease Tremor Gastric reflux Smoker Normal stress echocardiogram History of echocardiogram Hypertension Cardiology follow-up encounter History of heart attack Scalp wound Scalp pain Complex laceration of scalp Fall from ladder Postoperative atrial fibrillation History of left heart catheterization (LHC) ( 05/27/21) Heart valve problem Syncope and collapse Seizure Hyperlipidemia 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 Chronic back pain Atrial septal aneurysm Abnormal electrocardiogram CVA (cerebral vascular accident) Nicotine dependence Surgical History History of cardiac catheterization Hx of neck surgery History of coronary artery bypass surgery ( 09/21/21) S/P triple vessel bypass Stented coronary artery (10/06/17) History of lumbar puncture ( 04/2017) finger surgery lymph node resection Family History Mother Myocardial infarction Cancer Diabetes COPD (chronic obstructive pulmonary disease) Brother Myocardial infarction Cancer Diabetes Sister Cancer Diabetes Heart disease Father Lung cancer Social History household members: family Smoking Status: Heavy Smoker (>10/day) Tobacco: How many years used: 61 Electronic Cigarette Use: not used second hand exposure: Yes alcohol intake: former year quit: 2014 details: Patient reduced his alcohol intake when 'his lady passed in 2014' substance use type: does not use caffeine: Yes Type: carbonated beverages and coffee ROS ROS Narrative Negative except as documented in the interval HPI Intake Vital Signs 04/11/24 15:00 05/15/24 14:00 07/10/24 07:49 07/10/24 07:52 Height 5 ft 11 in 5 ft 8.5 in 5 ft 8.5 in 5 ft 8.5 in Weight: 140 lb 4 oz BMI 20.9 BP 106/63 Blood Pressure Location Lt brachial Position Sitting Respiration 18 Pulse 51 L Pulse Source Monitor Temp 96.6 F L Temperature Source Temporal Artery Pulse Oximetry (%) 98 Oxygen Delivery Method room air Intake Is patient in pain?: No Allergies bee venom protein (honey bee) Allergy (Severe, Verified 07/10/24 07:52) Anaphylaxis tuberculin, purified protein deriva Allergy (Severe, Verified 07/10/24 07:52) Swelling Medications ???Medication ???Instructions ???Recorded ???Confirmed ???Type acetaminophen 500 mg capsule 1,000 mg (2 x 500 mg) PO Q6H PRN 1 04/26/21 07/10/24 Rx pain #120 c (more content not included)... Normal [facility] Platelet countOrdered By: Shahzad Mathew on 07-10-2024 Platelets (Bld) [#/Vol] 226 10*3/uL 150-450 [facility] Potassium measurement (mass/ volume)Ordered By: Rita Mathew on 07-10-2024 Potassium (Unsp spec) [Mass/Vol] 3.9 mmol/L 3.3-5.1 [facility] RBC Auto (Bld) [#/Vol]Ordere d By: Rita Mathew on 07-10-2024 RBC (Bld) [#/Vol] 4.08 10*6/uL Low 4.6-6.2 [facility] Review by pathologistOrdered By: Rita Mathew on 07-10-2024 Pathologist review Bari (Unsp spec) [Interp] Reviewed [facility] Comment on above: Previous reported re sult: Lali bearden Edited by: VINCENZO on 08/02/24:1114SEE REPORT IN PATIENT'S EMR AMENDED REPORT 08/02/24 1114 PATH REV previously reported as: Lali bearden Serum creatinine measurement (mass/volume)Ordered By: Rita Mathew on 07-10-2024 Creatinine [Mass/Vol] 1.14 mg/dL 0.70-1.20 [facility] Serum globulin measurementOr dered By: Rita Mathew on 07-10-2024 Globulin (S) [Mass/Vol] 2.8 g/dL 2.2-4.2 [facility] Serum glucose measurement (m ass/volume)Ordered By: Rita Mathew on 07-10-2024 Glucose [Mass/Vol] 111 mg/dL High 70-99 [facility] Serum or plasma alanine vieyra otransferase (ALT) measurementOrdered By: Rita Mathew on 07-10-2024 ALT [Catalytic activity/Vol] 30 U/L <47 [facility] Serum or plasma albumin sadi urement (mass/volume)Ordered By: Rita Mathew on 07-10-2024 Albumin [Mass/Vol] 3.9 g/dL 3.4-4.8 [facility] Serum or plasma albumin/glob ulin mass ratioOrdered By: Rtia Mathew on 07-10-2024 Albumin/Globulin [Mass ratio] 1.4 {ratio} 0.9-2.4 [facility] Serum or plasma alkaline amber sphatase measurementOrdered By: Rita Mathew on 07-10-2024 ALP [Catalytic activity/Vol] 95 U/L 40-129 [facility] Serum or plasma calcium sadi urement (mass/volume)Ordered By: Rita Quincy on 07-10-2024 Calcium [Mass/Vol] 8.7 mg/dL 7.6-11.0 [facility] Serum or plasma urea nitroge n measurement (mass/volume)Ordered By: Rita Quincy on 07-10-2024 Urea nitrogen [Mass/Vol] 19 mg/dL 4-19 [facility] Sodium levelOrdered By: Rhys lainez Quincy on 07-10-2024 Sodium [Moles/Vol] 142 mmol/L 133-145 [facility] Total proteinOrdered By: Mihai isabel Quincy on 07-10-2024 Protein [Mass/Vol] 6.7 g/dL 5.9-8.4 [facility] White blood cell (WBC) count Ordered By: Rhysmigel Mathew on 07-10-2024 WBC (Bld) [#/Vol] 15.7 10*3/uL High 4.4-11.0 [facility] MRI BRAIN W/O CONTRASTon MRI BRAIN W/O CONTRAST ORIGINAL EXAMINATION: MRI OF THE BRAIN WITHOUT CONTRAST 05/30/2024 1:19 pm TECHNIQUE: Multiplanar multisequence MRI of the brain was performed without the administration of intravenous contrast. COMPARISON: 09/14/2022 the HISTORY: ORDERING SYSTEM PROVIDED HISTORY: Reason for Exam: memory change FINDINGS: INTRACRANIAL STRUCTURES/VENTRICLES: There is no acute infarct. Remote posterior right MCA distribution infarct with associated ex vacuo dilatation of the right occipital horn. Areas of susceptibility artifact within the area of remote infarct suggestive of remote hemorrhage. No mass effect or midline shift. No evidence of an acute intracranial hemorrhage. The ventricles are mildly enlarged with commensurate enlargement of the sulci most consistent with mild age-related volume loss. The sellar/suprasellar regions appear unremarkable. The normal signal voids within the major intracranial vessels appear maintained. ORBITS: The visualized portion of the orbits demonstrate no acute abnormality. Bilateral lens replacements. SINUSES: The visualized paranasal sinuses and mastoid air cells demonstrate no acute abnormality. BONES/SOFT TISSUES: The bone marrow signal intensity appears normal. The soft tissues demonstrate no acute abnormality. IMPRESSION: 1. No acute intracranial abnormality or significant change from the prior. 2. Remote right MCA distribution infarct. Interpreted by: Richmond Alvarado MD Preliminary Report By: Richmond Alvarado MD Electronically signed By Richmond Alvarado MD Dictated Date: 05/30/2024 3:50:02 PM Prelim Date: 05/30/2024 3:56:02 PM Sign Date: 05/30/2024 3:56:02 PM Ordering Provider: [facility] 6 Minute Walk Teston 05-21-2 025 6 Minute Walk Test y [facility] Pulmonary Services/Neurology [address] [place] [address] MR#: [id number] Acct: [id number] Name: RADHA BRENNAN Rep #: [id number] : 1955 68 From: Alex Mejia DO Referring Dr: Santa Hawthorne CABLE REELER-C Status: REG CLI Location: PSN Date: Sex: M C PSN 6 Minute Walk Test 6 Minute Walk Test 6 Minute Walk Test: 6 Minute Walk Test PSN:6-Minute Walk Test Start: 05/15/24 13:59 Freq: Status: Active Protocol: [id number] Document 05/15/24 14:00 SFENTON (Rec: 05/15/24 14:03 SFENTON [id number]) 6 Minute Walk Test Date Performed 05/15/24 Time Performed 13:45 Height 5 ft 8.5 in Weight: 140 lb Weight in Pounds 140.[address]: Santa Hawthorne Assistive device None used: Pre-test Oxygen Delivery Room Air Method Pulse Ox (%) 99 Pulse Rate (60-100 60 beats/min) Dyspnea Sohail Scale ( 0 0-10) Exertion Sohail Scale 6 (6-20) 1st minute Oxygen Delivery Room Air Method Pulse Ox (%) 94 Pulse Rate (60-100 61 beats/min) 2nd minute Oxygen Delivery Room Air Method Pulse Ox (%) 94 Pulse Rate (60-100 63 beats/min) 3rd minute Oxygen Delivery Room Air Method Pulse Ox (%) 95 Pulse Rate (60-100 72 beats/min) 4th minute Oxygen Delivery Room Air Method Pulse Ox (%) 95 Pulse Rate (60-100 78 beats/min) 5th minute Oxygen Delivery Room Air Method Pulse Ox (%) 93 Pulse Rate (60-100 78 beats/min) 6th minute Oxygen Delivery Room Air Method Pulse Ox (%) 95 Pulse Rate (60-100 79 beats/min) Dyspnea Sohail Scale ( 1 0-10) Exertion Sohail Scale 11 (6-20) Post-test Oxygen Delivery Room Air Method Pulse Ox (%) 98 Pulse Rate (60-100 65 beats/min) Full Laps Walked 20 Partial Lap, Number 17 of Tiles Walked Total Distance 1197 Walked (ft) Interpretation Interpretation: The patient ambulated 1197 feet over the course of 6 minutes beginning on room air without assistive devices. Pretesting oxygen saturation was noted to be 99% on room air. With ambulation, the abel oxygen saturation was 93%. This represents a significant exertional oxygen desaturation, consistent with a pulmonary limitation to exercise tolerance. Recommendations Recommendations: There is no indication for the use of supplemental oxygen at this time. However, close interval follow-up is recommended, given the degree of oxygen desaturation noted during this study. 05/21/24 1204 Date Alex Mejia DO CC: Date Dictated: 05/21/24 1203 Date Transcribed: 05/21/241202 Manager Validation: Dr. Alex Mejia DO Signed Normal [facility] Oncology Visit Reporton Oncology Visit Report [facility] [address] [place] [id number] OFFICE VISIT Date of Service: 04/11/24 1455 MR#: [id number] Acct: [id number] Name: RADHA BRENNAN Rep #: [id number] : 1955 From: Rita Mathew MD Age/Sex: 68/M Location: [facility] Status: Signed HPI Subjective Date of Service 04/11/24 Chief Complaint Lymphoma History of Present Illness 68-year-old male who presented with a few months history of progressively enlarging painless lymph nodes first noted in the groins then the axillae and finally the neck. No B symptoms. 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 Flow cytometry was performed consistent with the above diagnosis. March 20, 2024 PET/CT: IMPRESSION: 1. Increased radiopharmaceutical concentration defined in the bilateral axilla, right retropectoral region, right and left thoracic perihilum, and left inguinal region fulfill quantitative criteria for viable neoplasm. (Mikel et al, Journal of Clinical Oncology, 32: 3059, 2014). 2. Overall, compared to the prior FDG-PET CT study dated 02/15/2023, there is interim development of defined viable neoplastic disease. [facility] Medical History Small lymphocytic lymphoma Prediabetes Lung nodules Iron deficiency Insomnia Folic acid deficiency Costochondritis Cognitive impairment Cachexia GERD (gastroesophageal reflux disease) Small cell B-cell lymphoma Wears dentures Wears glasses Depression Alcohol use High cholesterol Excessive bleeding Migraine headache Injury of head and neck Parkinson's disease Tremor Gastric reflux Smoker Normal stress echocardiogram History of echocardiogram Hypertension Cardiology follow-up encounter History of heart attack Scalp wound Scalp pain Complex laceration of scalp Fall from ladder Postoperative atrial fibrillation History of left heart catheterization (LHC) ( 05/27/21) Heart valve problem Syncope and collapse Seizure Hyperlipidemia 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 Chronic back pain Atrial septal aneurysm Abnormal electrocardiogram CVA (cerebral vascular accident) Nicotine dependence Surgical History History of cardiac catheterization Hx of neck surgery History of coronary artery bypass surgery ( 09/21/21) S/P triple vessel bypass Stented coronary artery (10/06/17) History of lumbar puncture ( 04/2017) finger surgery lymph node resection Family History Mother Myocardial infarction Cancer Diabetes COPD (chronic obstructive pulmonary disease) Brother Myocardial infarction Cancer Diabetes Sister Cancer Diabetes Heart disease Father Lung cancer Social History household members: family Smoking Status: Heavy Smoker (>10/day) Tobacco: How many years used: 61 Electronic Cigarette Use: not used second hand exposure: Yes alcohol intake: former year quit: 2014 details: Patient reduced his alcohol intake when 'his lady passed in 2014' substance use type: does not use caffeine: Yes Type: carbonated beverages and coffee ROS ROS Narrative No change C March 13, 2024 Intake Vital Signs 03/13/24 10:14 04/10/24 14:18 04/11/24 14:56 04/11/24 15:00 Height 5 ft 11 in 5 ft 11 in 5 ft 11 in 5 ft 11 in Weight: 65.317 kg 65.317 kg BMI 20.0 20.0 BP 108/71 100/62 Blood Pressure Location Lt brachial Lt brachial Position Sitting Sitting Respiration 18 16 Pulse 58 L 59 L Pulse Source Monitor Monitor Temp 97.5 F L Temperature Source Temporal Artery Pulse Oximetry (%) 100 97 Oxygen Delivery Method room air Intake Is patient in pain?: No Allergies bee venom protein (honey bee) Allergy (Severe, Verified 04/11/24 14:57) Anaphylaxis tuberculin, purified protein deriva Allergy (Severe, Verified 04/11/24 14:57) Swelling Medications ???Medication ???Instructions ???Recorded ???Confirmed ???Type acetaminophen 500 mg capsule 1,000 mg (2 x 500 mg) PO Q6H PRN 02/24/22 04/11/24 Rx pain #120 caps folic acid 1 mg tablet 1 mg PO DAILY supplement #90 tabs 03/30/22 04/11/24 Rx magnesium oxide 400 mg (241.3 mg 400 mg PO DAILY supplement #90 tabs 03/30/22 04/11/24 Rx magnesium) tablet ascorbate calcium (vitamin C) 500 500 mg PO DAILY vitamin #90 tabs 06/16/22 04/11/24 Rx mg tablet aspirin 81 mg tablet,delayed 81 mg PO DAILY heart health #90 06/16/22 04/11/24 Rx release (Adult Aspirin Regimen) tabs ferrous sulfate 325 mg (65 mg 325 mg PO DAILY supplement #90 tabs 06/16/22 04/11/24 Rx iron) tablet (Fero (more content not included)... Normal [facility] Cardiology Visit Reporton Cardiology Visit Report [facility] [address] [place] [address] OFFICE VISIT Date of Service: 04/10/24 MR#: [id number] Acct: [id number] Name: RADHA BRENNAN Rep #: [id number] : 1955 Provider: DEYSI Lott Age/Sex: 68/M Location: [facility] Status: Signed HPI HPI History of Present Illness Details: RADHA BRENNAN, is a 68 M with a history of coronary artery disease status post PTCA/ZOLTAN to mid LAD and proximal diagonal in October 2017, post subsequent CABG ([facility]: 09-21-2021: RIBEIRO to the LAD, ELIEL to the diagonal branch #1, SVG to the diagonal branch #2), history of mild global LV dysfunction, atrial septal aneurysm, hyperlipidemia, alcohol withdrawal seizure, epilepsy , tremors, and tobacco abuse. In April 2021. He did undergo a diagnostic heart catheterization last week which demonstrated catawba multivessel coronary artery disease in which surgical revascularization was recommended. Results of heart catheterization are noted below. Referral was not made as patient had not decided where he wanted to go yet. At his OV in June 2021 he decided he wanted to go to [facility]. He did undergo bypass surgery on September 21, 2021. He had an RIBEIRO to the LAD, SVG to the diagonal 2, ELIEL to the diagonal 1. He did have to return to the OR shortly after being transferred to the CVICU for increased chest tube output. There is a small area of arterial bleed that was identified in the left chest. The bleeding was controlled he returned in stable condition to the CVICU. Postop day 1 he did have a seizure lasting 15 minutes. Postop day 2 he did require a blood transfusion and also had an episode of atrial fibrillation. Postop day 4 he was noted to have pleural effusion of his left lung requiring a chest tube placement on postop day 6 this was removed. Postoperatively he was seen in the emergency room on October 16 2021 for left arm pain. He did have an upper extremity ultrasound done on October 18 which did demonstrate left IJ vein partially compressible, left cephalic vein at elbow noncompressible. Because patient was on Plavix and aspirin no additional therapy was recommended. He presented back to the emergency room on October 29, 2021 for chest discomfort. High- sensitivity troponin were negative. It was noted that he had a small left pleural effusion. He did follow up with the CT surgeon. It appears they were not aware of his pleural effusion. In May of 2023 patient was in the emergency room for chest pain. Troponins were negative x 2. BNP was 21. EKG demonstrated sinus rhythm with PACs. Patient was recently diagnosed with small lymphocytic lymphoma. He does follow with oncology. From a cardiac standpoint, patient is doing well. He does not have any chest discomfort/heaviness/tight ness. He does have SOB with exertion, he not think that this is worse than last time. He is established with pulmonary. He denies any PND. He does not have any orthopnea. He does not have any symptoms of congestive heart failure. He does not have any palpitations that he is aware of. He does not have any lightheadedness or dizziness. He does not have any near-syncope or syncope. He does not have any lower extremity edema. He does not have any symptoms of claudication. 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 Is patient in pain?: No Allergies bee venom protein (honey bee) Allergy (Severe, Verified 04/10/24 14:19) Anaphylaxis tuberculin, purified protein deriva Allergy (Severe, Verified 04/10/24 14:19) Swelling Medications ???Medication ???Instructions ???Recorded ???Confirmed ???Type acetaminophen 500 mg capsule 1,000 mg (2 x 500 mg) PO Q6H PRN 02/24/22 04/10/24 Rx pain #120 caps folic acid 1 mg tablet 1 mg PO DAILY supplement #90 tabs 03/30/22 04/10/24 Rx magnesium oxide 400 mg (241.3 mg 400 mg PO DAILY supplement #90 tabs 03/30/22 04/10/24 Rx magnesium) tablet ascorbate calcium (vitamin C) 500 500 mg PO DAILY vitamin #90 tabs 06/16/22 04/10/24 Rx mg tablet aspirin 81 mg tablet,delayed 81 mg PO DAILY heart health #90 06/16/22 04/10/24 Rx release (Adult Aspirin Regimen) tabs ferrous sulfate 325 mg (65 mg 325 mg PO DAILY supplement #90 tabs 06/16/22 04/10/24 Rx iron) tablet (FeroSul) multivitamin with folic acid 400 1 tab PO DAILY vitamin #90 tabs 06/16/22 04/10/24 Rx mcg tablet (Daily-Tin (more content not included)... Normal [facility] Pulmonary Visit Reporton Pulmonary Visit Report [facility] [address] [place] [address] OFFICE VISIT Date of Service: 04/05/24 MR#: [id number] Acct: [id number] Name: RADHA BRENNAN Rep #: [id number] : 1955 Provider: Santa Hawthorne NP Age/Sex: 68/M Location: [facility] Status: Signed with Addenda ADDENDUM by Santa Hawthorne NP on 06/01/24 at 0848 Assessment and Plan Assessment and Plan (1) Nicotine dependence, cigarettes, uncomplicated: Status: Chronic (2) Cough: Status: Acute Qualifiers: Cough type: chronic Qualified Code(s): R05.3 - Chronic cough (3) COPD (chronic obstructive pulmonary disease): Status: Suspected Qualifiers: COPD type: unspecified COPD Qualified Code(s): J44.9 - Chronic obstructive pulmonary disease, unspecified Plan: Suspecting COPD due to history of smoking, PFT and 6MWT pending. Orders: Orders PFT Complete - DLCO, Spirometry b/a bronchodilators, lung volumes 05/08/24 F17.210 - Nicotine dependence, cigarettes, uncomplicated Simple Pulmonary Exercise Test 05/15/24 F17.210 - Nicotine dependence, cigarettes, uncomplicated Low Dose CT Lung Screening 11 Months F17.210 - Nicotine dependence, cigarettes, uncomplicated Plan Details Follow Up: 1 Year (LMR) 06/01/24 0848 Date Santa Hawthorne NP-C cc: * Signed Assessment and Plan Assessment and Plan (1) Nicotine dependence, cigarettes, uncomplicated: Status: Chronic Plan: The recent PET scan does not show nodule or mass in the lung tissue. The patient does plan to follow-up with Dr. Mathew next week to discuss the results of PET scan. He is encouraged to keep this follow-up visit. He remains appropriate for repeat LDCT in March 2025, ordered accordingly. I have discussed this plan with Dr. Mejia. He has been encouraged to contact the office if he develops any symptoms in the meantime. The patient and his daughter both convey understanding. (2) Cough: Status: Acute Qualifiers: Cough type: chronic Qualified Code(s): R05.3 - Chronic cough Plan: I am suspecting COPD, await PFT and 6-minute walk test. If the testing is abnormal then I plan to advance follow-up to discuss. The patient is not willing to quit smoking today despite the recommendation for smoking cessation. The patient understands that this practice is willing to assist him when he decides to quit smoking. Orders: Orders PFT Complete - DLCO, Spirometry b/a bronchodilators, lung volumes Today F17.210 - Nicotine dependence, cigarettes, uncomplicated Simple Pulmonary Exercise Test Today F17.210 - Nicotine dependence, cigarettes, uncomplicated Low Dose CT Lung Screening 11 Months F17.210 - Nicotine dependence, cigarettes, uncomplicated Plan Details Follow Up: 1 Year (LMR) HPI HPI Comments Details: This 68-year-old male patient presents to the office today to discuss recent test results. He is ambulatory, currently on room air. He has not had recent bronchitis or pneumonia, he has not required antibiotics or prednisone since last evaluation. 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 He is following with Dr. Mathew who recently ordered a PET/CT from March 20, 2024 which the field quantitative criteria for viable neoplasm in the bilateral axilla, right recto pectoral region and right and left thoracic perihilar and left inguinal region. He is not currently on any inhalers. He continues to smoke cigarettes. Currently smoking 1- 1.5 pack/day. The patient reports that he is not having any shortness of breath whatsoever. He does report infrequent morning cough with productive yellow thick sputum. He denies wheeze, chest tightness, chest palpitations. He states that the discomfort is present if you touch the area, this region does continue to produce discomfort at times but is currently not painful today. He is status post a 2-week Holter monitor and reports that it went okay . He denies any fever, chills or body aches. 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 Normal [facility] PET/CT Tumor Base -Thigh Ini ton 03-20-2024 PET/CT Tumor Base -Thigh Init [facility] Imaging Services [address], [place] [address] PET/CT Tumor Base -Thigh Init MR#: [id number] Acct: [id number] Name: RADHA BRENNAN Rep #: [id number] : 1955 M 68 From: Juan R Azevedo PCP: Dr. Parish Graff, DO Status: REG RCR Study: PET/CT Tumor Base -Thigh Init Date of Exam: Exam# [id number] Ordering Dr: Rita Mathew MD [id number] EXAMINATION: FDG-PET/CT ? INDICATIONS: 68-year-old male with a history of lymphoma, presenting for restaging examination. ? COMPARISON EXAMINATION: FDG-PET CT study dated 02/15/2023. ? INDEX LESION SIZE SUV LUGANO INTERPRETATION NEW Bilateral axilla, right retropectoral lymph node basin 23.8 mm, largest 3.0 max 4 Fulfills quantitative criteria for viable neoplasm ? NEW Bilateral thoracic perihilum 16.8 mm 2.6 max 4 Fulfills quantitative criteria for viable neoplasm ? NEW Left inguinal region 15.3 mm 3.4 max 4 Fulfills quantitative criteria for viable neoplasm ? TECHNIQUE: Following the intravenous administration of 13.0 mCi of F-18 deoxyglucose via the left forearm, multiplanar image acquisitions of the head, neck, chest, abdomen and pelvis to the level of the midthigh, obtained at one-hour post radiopharmaceutical administration contemporaneously interpreted with the current CT of the chest, abdomen and pelvis dated 03/20/2024 and prior FDG-PET CT study dated 02/15/2023 via coregistration reveal: ? SERUM GLUCOSE LEVEL:? 125 mg/dL? HEIGHT:?? 67 inches WEIGHT:?? 145 pounds ? FINDINGS: ? HEAD/NECK:? There is no evidence of abnormal increased glucose metabolism in the pharyngeal mucosal space, parapharyngeal space, oropharynx, bilateral-lateral and anterior neck, hypopharynx and distribution of the larynx. ? The visualized portion of the cerebral cortical-subcortical structures demonstrate symmetric and preserved glucose metabolism. ? CHEST: Facilitated FDG concentration is currently defined in the right axilla and right retropectoral lymph node distributions. The calculated standard uptake value is 3.0. The Lugano-Deauville score is 4. The largest corresponding soft tissue density is 23.8 mm. Facilitated FDG concentration is noted in the bilateral thoracic perihilum with a calculated standard uptake value of 2.6. The Lugano-Deauville score is 4, if applicable. The maximal axial diameter of the metabolic, morphologic abnormality is 16.8 mm. ? CT of the chest demonstrates the following anatomic characteristics: Emphysematous changes are defined in the bilateral upper lung zones. A linear increase in tracer uptake noted in the right lower posterior lung field demonstrates no evidence of quantitatively significant increased FDG uptake. Calcified and noncalcified parenchymal densities are noted without evidence of increased labeled glucose concentration. Atherosclerotic calcification is defined in the thoracic aorta without evidence of dilatation, aneurysm formation. Coronary artery calcification is observed. ? ABDOMEN/PELVIS:? Facilitated uptake is newly apparent in the left inguinal region. The calculated standard uptake value is 3.4. The Lugano-Deauville score is 4. The maximal axial diameter of the largest corresponding soft tissue density is 15.3 mm. Normal physiologic distribution of the radiopharmaceutical is identified in the hepatic (2.6) and splenic parenchyma, both renal units, urinary bladder, and visualized intestinal tract. ? CT of the abdomen and pelvis is remarkable for the following: Atherosclerotic calcification is defined in the abdominal aorta without evidence of dilatation, aneurysm formation. Abdominal-pelvic arterial calcification is observed. Calcifications are demonstrated in the bilateral lower hemipelvis. Right inguinal soft tissue is ametabolic. ? SKELETAL:? There is no evidence of quantitatively significant enhanced glucose metabolism on meticulous inspection of the appendicular and axial skeletal structures. ? Degenerative changes defined in the thoracic and lumbar spine demonstrate no evidence of increased glucose metabolism. There are no sclerotic, mixed sclerotic-lytic, or primarily lytic changes defined in the axial skeletal structures with evidence of increased FDG uptake. ? PET/PET/CT Tumor Base -Thigh Init IMPRESSION: 1. Increased radiopharmaceutical concentration defined in the bilateral axilla, right retropectoral region, right and left thoracic perihilum, and left inguinal region fulfill quantitative criteria for viable neoplasm. (Mikel, et al, Journal of Clinical Oncology, 32: 3059, 2014). 2. Overall, compared to the prior FDG-PET CT study dated 02/15/2023, there is interim development of defined viable neoplastic disease. Electronic Signature Juan R Clark D.O. Accurate Quantification of SUVs and sta (more content not included)... Normal [facility] Hepatitis B/C Profile VIIIon 03-14-2024 COMMENT Comment Normal . [facility] Comment on above: Result Comment: Not infected with HCV unless early or acute infection is suspected (which may be delayed in an immunocompromised individual), or other evidence exists to indicate HCV infection. Performed at: - [facility] [id number] Manager Power: Joni Casper PhD, Phone: [phone] Performed By: #### L 100.0100, L500.4050, L504.2610, L3000.0800 #### [facility] [place], [address] HEP B CORE,TOT Negative Normal Negative [facility] Comment on above: Performed By: #### L 100.0100, L500.4050, L504.2610, L3000.0800 #### [facility] [address] [place], [address] Hep B Ambar AB Non-Reactive Normal . [facility] Comment on above: Result Comment: Non Reactive: Not immune to HBV infection. Equivocal: Unable to determine if anti-HBs is present at levels consistent with immunity. Reactive: Anti-HBs concentration detected at greater than 10 mIU/mL. Individual is considered to be immune to infection with HBV. Performed By: #### L 100.0100, L500.4050, L504.2610, L3000.0800 #### [facility] [address] [place], [address] HEP B SURF AG Negative Normal Negative [facility] Comment on above: Performed By: #### L 100.0100, L500.4050, L504.2610, L3000.0800 #### [facility] [address] [place], [address] HEP C Antibody Non-Reactive Normal Non Reactive [facility] Comment on above: Performed By: #### L 100.0100, L500.4050, L504.2610, L3000.0800 #### [facility] [address] [place], [address] CBC W/Diff, Automatedon - SMEAR COMMENT COMMENT Normal [facility] Comment on above: Result Comment: LYMP HOCYTOSIS. EOSINOPHILIA. Performed By: #### L 100.0100, L500.4050, L504.2610, L3000.0800 #### [facility] [address] [place], [address] Comprehensive Metabolic Prof ilon 03-13-2024 Albumin [Mass/Vol] 3.2 g/dL Normal 3.2-5.0 [facility] Comment on above: Order Comment: 1 Performed By: #### L 100.0100, L500.4050, L504.2610, L3000.0800 #### [facility] [address] [place], [address] Albumin/Globulin [Mass ratio] 0.9 {ratio} Normal 0.9-2.4 [facility] Comment on above: Order Comment: 1 Performed By: #### L 100.0100, L500.4050, L504.2610, L3000.0800 #### [facility] [address] [place], [address] ALK P 100 U/L Normal 45-117 [facility] Comment on above: Order Comment: 1 Performed By: #### L 100.0100, L500.4050, L504.2610, L3000.0800 #### [facility] [address] [place], [address] ALT [Catalytic activity/Vol] 30 U/L Normal 16-61 [facility] Comment on above: Order Comment: 1 Performed By: #### L 100.0100, L500.4050, L504.2610, L3000.0800 #### [facility] [address] [place], [address] AST [Catalytic activity/Vol] 19 U/L Normal 15-37 [facility] Comment on above: Order Comment: 1 Performed By: #### L 100.0100, L500.4050, L504.2610, L3000.0800 #### [facility] [address] [place], [address] Bilirubin [Mass/Vol] 0.50 mg/dL Normal 0.20-1.00 [facility] Comment on above: Order Comment: 1 Result Comment: For patients on eltrombopag therapy, use of Dimension [place] TBIL is not recommended. Performed By: #### L 100.0100, L500.4050, L504.2610, L3000.0800 #### [facility] [address] [place], [address] BUN/CRE 10.1 RATIO Normal 10-20 [facility] Comment on above: Order Comment: 1 Performed By: #### L 100.0100, L500.4050, L504.2610, L3000.0800 #### [facility] [address] [place], [address] CA,Total 8.8 mg/dL Normal 8.5-10.1 [facility] Comment on above: Order Comment: 1 Performed By: #### L 100.0100, L500.4050, L504.2610, L3000.0800 #### [facility] [address] [place], [address] Chloride [Moles/Vol] 105 mmol/L Normal 98-107 [facility] Comment on above: Order Comment: 1 Performed By: #### L 100.0100, L500.4050, L504.2610, L3000.0800 #### [facility] [address] [place], [address] CO2 [Moles/Vol] 28.0 mmol/L Normal 21.0-32.0 [facility] Comment on above: Order Comment: 1 Performed By: #### L 100.0100, L500.4050, L504.2610, L3000.0800 #### [facility] [address] [place], [address] Creatinine [Mass/Vol] 1.09 mg/dL Normal 0.70-1.30 [facility] Comment on above: Order Comment: 1 Result Comment: The validity of the calculated GFR GFRAA in patients over 70 years has not been determined. Clinical correlation is essential. Performed By: #### L 100.0100, L500.4050, L504.2610, L3000.0800 #### [facility] [address] [place], [address] EST GFR - AA 86 mL/min Normal >60 [facility] Comment on above: Order Comment: 1 Result Comment: Afri can Pakistani GFR Calc Performed By: #### L 100.0100, L500.4050, L504.2610, L3000.0800 #### [facility] [address] [place], [address] GAP 4 Low 5-15 [facility] Comment on above: Order Comment: 1 Performed By: #### L 100.0100, L500.4050, L504.2610, L3000.0800 #### [facility] [address] [place], [address] GFR/1.73 sq M.predicted among non-blacks MDRD (S/P/Bld) [Vol rate/Area] 71 mL/min/{1.73_m2} Normal >60 [facility] Comment on above: Order Comment: 1 Result Comment: Non- GFR Calc Performed By: #### L 100.0100, L500.4050, L504.2610, L3000.0800 #### [facility] [address] [place], [address] Globulin (S) [Mass/Vol] 3.6 g/dL Normal 2.2-4.2 [facility] Comment on above: Order Comment: 1 Performed By: #### L 100.0100, L500.4050, L504.2610, L3000.0800 #### [facility] [address] [place], [address] Glucose [Mass/Vol] 156 mg/dL High 74-106 [facility] Comment on above: Order Comment: 1 Result Comment: Fast ing Glucose result greater than or equal to 126 mg/dL suggests DIABETES MELLITUS per A.D.A. criteria. Performed By: #### L 100.0100, L500.4050, L504.2610, L3000.0800 #### [facility] [address] [place], [address] Potassium [Moles/Vol] 4.2 mmol/L Normal 3.5-5.1 [facility] Comment on above: Order Comment: 1 Performed By: #### L 100.0100, L500.4050, L504.2610, L3000.0800 #### [facility] [address] [place], [address] Sodium [Moles/Vol] 137 mmol/L Normal 136-145 [facility] Comment on above: Order Comment: 1 Performed By: #### L 100.0100, L500.4050, L504.2610, L3000.0800 #### [facility] [address] [place], [address] T PROT 6.8 g/dL Normal 6.4-8.2 [facility] Comment on above: Order Comment: 1 Performed By: #### L 100.0100, L500.4050, L504.2610, L3000.0800 #### [facility] [address] [place], [address] Urea nitrogen [Mass/Vol] 11 mg/dL Normal 7-18 [facility] Comment on above: Order Comment: 1 Performed By: #### L 100.0100, L500.4050, L504.2610, L3000.0800 #### [facility] [address] [place], [address] LDHon 03-13-2024 LDH 158 U/L Normal 87-241 [facility] Comment on above: Order Comment: 1 Performed By: #### L 100.0100, L500.4050, L504.2610, L3000.0800 #### [facility] [address] [place], [address] No Panel InformationOrdered By: Rita Mathew on 03-13-2024 Hepatitis C Antibody Comment Comment . [facility] Comment on above: Not infected with HC V unless early or acute infection issuspected (which may be delayed in an immunocompromisedindividual), or other evidence exists to indicate HCVinfection.Performed at: [facility] [id number] [place], [place] [id number] Director: Joni Casper PhD, Phone: [phone] Oncology Visit Reporton 03-[address] [facility] [place] [address] OFFICE VISIT Date of Service: 03/13/24 1006 MR#: [id number] Acct: [id number] Name: RADHA BRENNAN Rep #: [id number] : 1955 From: Rita Mathew MD Age/Sex: 68/M Location: [facility] Status: Signed HPI Subjective Date of Service 03/13/24 Chief Complaint Lymphoma History of Present Illness 68-year-old male who presented with a few months history of progressively enlarging painless lymph nodes first noted in the groins then the axillae and finally the neck. No B symptoms. 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 Flow cytometry was performed consistent with the above diagnosis report has been requested from [facility] for review. [facility] Medical History (Updated 03/13/24 @ 12:[address] Rita Mathew MD) Small lymphocytic lymphoma Prediabetes Lung nodules Iron deficiency Insomnia Folic acid deficiency Costochondritis Cognitive impairment Cachexia GERD (gastroesophageal reflux disease) Small cell B-cell lymphoma Wears dentures Wears glasses Depression Alcohol use High cholesterol Excessive bleeding Migraine headache Injury of head and neck Parkinson's disease Tremor Gastric reflux Smoker Normal stress echocardiogram History of echocardiogram Hypertension Cardiology follow-up encounter History of heart attack Scalp wound Scalp pain Complex laceration of scalp Fall from ladder Postoperative atrial fibrillation History of left heart catheterization (LHC) ( 05/27/21) Heart valve problem Syncope and collapse Seizure Hyperlipidemia 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 Chronic back pain Atrial septal aneurysm Abnormal electrocardiogram CVA (cerebral vascular accident) Nicotine dependence Surgical History History of cardiac catheterization Hx of neck surgery History of coronary artery bypass surgery ( 09/21/21) S/P triple vessel bypass Stented coronary artery (10/06/17) History of lumbar puncture ( 04/2017) finger surgery lymph node resection Family History Mother Myocardial infarction Cancer Diabetes COPD (chronic obstructive pulmonary disease) Brother Myocardial infarction Cancer Diabetes Sister Cancer Diabetes Heart disease Father Lung cancer Social History (Updated 03/13/24 @ 10:14 by Camelia Corral) household members: family Smoking Status: Heavy Smoker (>10/day) Tobacco: How many years used: 61 Electronic Cigarette Use: not used second hand exposure: Yes alcohol intake: former year quit: 2014 details: Patient reduced his alcohol intake when 'his lady passed in 2014' substance use type: does not use caffeine: Yes Type: carbonated beverages and coffee ROS Constitutional Constitutional: Denies anorexia, fever(s), frequent falls or weight loss Eyes Eyes: Reports systems reviewed and no addt'l complaints, except as documented; Denies change in vision ENT HEENT: Reports systems reviewed and no addt'l complaints, except as documented; Denies mouth lesions Cardiovascular Cardiovascular: Reports systems reviewed and no addt'l complaints, except as documented; Denies chest pain with activity or edema Respiratory/Chest Respiratory/Chest: Reports dyspnea on exertion; Denies cough or hemoptysis Gastrointestinal Gastrointestinal: Denies change in bowel habits Genitourinary Genitourinary: Reports systems reviewed and no addt'l complaints, except as documented; Denies hematuria Musculoskeletal Musculoskeletal: Denies back pain Integumentary Integumentary: Reports systems reviewed and no addt'l complaints, except as documented; Denies new lesions Neurologic Neurologic: Reports systems reviewed and no addt'l complaints, except as documented, memory loss and tremor(s); Denies focal weakness, frequent falls or paresthesias Psychiatric Psychiatric: Reports systems reviewed and no addt'l complaints, except as documented Endocrine Endocrinology: Reports systems reviewed and no addt'l complaints, except as documented Hematologic/Lymphatic Hematologic/Lymphatic: Reports as per HPI and lymphadenopathy Allergic/Immunologic Allergic/Immunologic: Reports systems reviewed and no addt'l complaints, except as documented Intake Vital Signs 07/28/23 14:28 03/13/24 10:07 03/13/24 10:14 Height 5 ft 11 in 5 ft 11 in 5 ft 11 in Weight: 66.678 kg BMI 20.5 BP 96/56 L Blood Pressure Location Rt brachial Position Sitting Respiration 16 Pulse 57 L Pulse Source Monitor Temp 98.2 F Temperature Source Temporal Artery Pulse Oximetry (%) 94 Oxygen Delivery M (more content not included)... Normal [facility] Serum hepatitis B virus core antibody detectionOrdered By: [facility] on 03-13-2024 HBV core Ab Ql (S) Negative Negative [facility] Serum or plasma hepatitis B virus surface antigen detection by immunoassayOrdered By: Rita Mathew on 03-13-2024 HBV surface Ag IA Ql Negative Negative [facility] Final Surgical Pathology Rep [facility] 03-05-2024 Final Surgical Pathology Report . Pathology Reports Accession: Collected Date/Time: Received Date/Time: Pathologist: [id number] 02/27/2024 11:10 EST 02/28/2024 09:37 EST ANASTACIO PATEL MD Final Surgical Pathology Report DIAGNOSIS: RIGHT AXILLARY LYMPH NODE: - SMALL LYMPHOCYTIC LYMPHOMA COEXPRESSING CD5 AND CD20, CYCLIN D1 NEGATIVE. CD3 CD10 CD79A BCL2 BCL6 AND KI-67 STAINS ALSO USED IN EVALUATION. Comment: Flow cytometric evaluation by integrated oncology is consistent with CLL/SLL CLINICAL INFORMATION: LOCALIZED ENLARGED LYMPH NODES Procedure: EXCISIONAL BX, RIGHT AXILLARY LYMPH NODE Preoperative diagnosis: RIGHT AXILLARY ADENOPATHY Postoperative diagnosis: RIGHT AXILLARY ADENOPATHY SPECIMEN: A RIGHT AXILLARY LYMPH NODE- FLOW GROSS DESCRIPTION: All parts labelled with patient name and [id number] Received fresh for touch prep labelled right axillary lymph node Are 2 boyce-pink to purple predominantly smooth lymph nodes measuring 3.2 x 2.7 x 1.8 cm and 5 x 3.6 x 2.8 cm . Touch prep is performed on both lymph nodes. A portion of the lymph nodes is submitted in RPMI solution for flow cytometry analysis. A1 -A3-smaller lymph node, A4 -A6 -larger lymph node. RS-6 Johnna Huber, Pathologists' Vegetables Cook (ASCP) Performed by JOHNNA HUBER MICROSCOPIC DESCRIPTION: The microscopic examination is performed, except in the case of Gross Only. Electronically Signed by Pathology Report verified by [facility] ANASTACIO PATEL Sign out Date: 03/05/2024 14:41 Performing Lab: [facility], [address] [place] [address] Pathology Dept Disclaimer If ancillary studies were utilized, the following Laboratory Developed Test (LDT) disclaimer will apply: Under CLIA requirements, [facility] is qualified to perform high complexity testing. For all ancillary stains, positive and negative controls stain appropriately. Performance characteristics of immunohistochemical and chromogenic in-situ hybridization tests have been determined by [facility]. These tests are used for clinical purposes, They should not be regarded as investigational or for research. Normal [facility] .GFRon 02-23-2024 GFR 92 ml/min/1.73sqm Normal [facility] Comment on above: Result Comment: GFR Population mean for , Non- Americans Ages 20-29 = 116 mL/min/1.73 sq.m. Ages 30-39 = 107 mL/min/1.73 sq.m. Ages 40-49 = 99 mL/min/1.73 sq.m. Ages 50-59 = 93 mL/min/1.73 sq.m. Ages 60-69 = 85 mL/min/1.73 sq.m. Ages 70+ = 75 mL/min/1.73 sq.m. Chronic Kidney Disease: Less than 60 mL/min/1.73 square meters End Stage Renal Disease: Less than 15 mL/min/1.73 square meters Performed By: #### G FR, CMP, DIFF, CBC, MORPH ####[facility] [place], [place] [address] GFR Non- 76 ml/min/1.73sqm Normal [facility] Comment on above: Result Comment: GFR Population mean for , Non- Americans Ages 20-29 = 116 mL/min/1.73 sq.m. Ages 30-39 = 107 mL/min/1.73 sq.m. Ages 40-49 = 99 mL/min/1.73 sq.m. Ages 50-59 = 93 mL/min/1.73 sq.m. Ages 60-69 = 85 mL/min/1.73 sq.m. Ages 70+ = 75 mL/min/1.73 sq.m. Chronic Kidney Disease: Less than 60 mL/min/1.73 square meters End Stage Renal Disease: Less than 15 mL/min/1.73 square meters Performed By: #### G FR, CMP, DIFF, CBC, MORPH ####[facility] [address] [address] .Manual Diffon 02-23-2024 Atypical Lymphs 17.7 % High 0.0-5.0 [facility] Comment on above: Performed By: #### G FR, CMP, DIFF, CBC, MORPH ####[facility] [address] [address] Basophil %, Manual 0.0 % Normal 0.0-2.5 [facility] Comment on above: Performed By: #### G FR, CMP, DIFF, CBC, MORPH ####[facility] [address] [address] Basophil, Abs Manual 0.0 10 3/mcL Normal 0.0-0.2 [facility] Comment on above: Performed By: #### G FR, CMP, DIFF, CBC, MORPH ####[facility] [address] [address] Eosinophil %, Manual 12.7 % High 0.0-7.0 [facility] Comment on above: Performed By: #### G FR, CMP, DIFF, CBC, MORPH ####[facility] [address] [address] Eosinophil, Abs Manual 1.5 10 3/mcL High 0.0-0.7 [facility] Comment on above: Performed By: #### G FR, CMP, DIFF, CBC, MORPH ####[facility] [address] Lymphocyte %, Manual 26.5 % Normal 20.0-40.0 [facility] Comment on above: Performed By: #### G FR, CMP, DIFF, CBC, MORPH ####[facility] [place], [place] [address] Lymphocyte, Abs Manual 3.2 10 3/mcL Normal 0.9-4.3 [facility] Comment on above: Performed By: #### G FR, CMP, DIFF, CBC, MORPH ####[address] [place], [place] [address] Monocyte %, Manual 3.9 % Normal 2.0-13.0 [facility] Comment on above: Performed By: #### G FR, CMP, DIFF, CBC, MORPH ####[address] [place], [place] [address] Monocyte, Abs Manual 0.5 10 3/mcL Normal 0.1-1.4 [facility] Comment on above: Performed By: #### G FR, CMP, DIFF, CBC, MORPH ####[facility] [place], [place] [address] Neutrophil %, Manual 39.2 % Low 50.0-75.0 [facility] Comment on above: Performed By: #### G FR, CMP, DIFF, CBC, MORPH ####[place] [address] [place], [place] [address] Neutrophil, Abs Manual 4.7 10 3/mcL Normal 2.3-8.1 [facility] Comment on above: Performed By: #### G FR, CMP, DIFF, CBC, MORPH ####[address] [address] [place], [place] [address] Nucleated RBC 0.0 /100 WBC Normal [facility] Comment on above: Performed By: #### G FR, CMP, DIFF, CBC, MORPH ####[address] [place], [place] [address] .Morphon 02-23-2024 Macrocytosis 1+ Normal [facility] Comment on above: Performed By: #### G FR, CMP, DIFF, CBC, MORPH ####[address] [address] [place], [place] [address] Platelet Estimate Normal Normal [facility] Comment on above: Performed By: #### G FR, CMP, DIFF, CBC, MORPH ####[address] [place], [place] [address] Stomatocytes 1+ Normal [facility] Comment on above: Performed By: #### G FR, CMP, DIFF, CBC, MORPH ####[address] [place], [place] [address] CBCon 02-23-2024 Erythrocyte distribution width (RBC) [Ratio] 13.4 % Normal 11.5-15.5 [facility] Comment on above: Order Comment: Pre-A dmission Testing Performed By: #### G FR, CMP, DIFF, CBC, MORPH ####[address] [address] [place], [place] [address] Hematocrit (Bld) [Volume fraction] 40.1 % Normal 40.0-52.0 [facility] Comment on above: Order Comment: Pre-A dmission Testing Performed By: #### G FR, CMP, DIFF, CBC, MORPH ####[address] [place], [place] [address] Hgb 13.3 G/dL Normal 13.0-17.5 [facility] Comment on above: Order Comment: Pre-A dmission Testing Performed By: #### G FR, CMP, DIFF, CBC, MORPH ####[address] [place], [place] [address] MCH (RBC) [Entitic mass] 33.9 pg High 27.0-33.0 [facility] Comment on above: Order Comment: Pre-A dmission Testing Performed By: #### G FR, CMP, DIFF, CBC, MORPH ####[address] [place], [place] [address] MCHC 33.1 G/dL Normal 32.0-36.0 [facility] Comment on above: Order Comment: Pre-A dmission Testing Performed By: #### G FR, CMP, DIFF, CBC, MORPH ####[address] [place], [place] [address] MCV (RBC) [Entitic vol] 102.4 fL High 81.0-100.0 [facility] Comment on above: Order Comment: Pre-A dmission Testing Performed By: #### G FR, CMP, DIFF, CBC, MORPH ####[address] [place], [place] [address] Platelet 256 10 3/mcL Normal 150-450 [facility] Comment on above: Order Comment: Pre-A dmission Testing Performed By: #### G FR, CMP, DIFF, CBC, MORPH ####[address] [place], [place] [address] Platelet mean volume (Bld) [Entitic vol] 8.3 fL Normal 6.4-10.5 [facility] Comment on above: Order Comment: Pre-A dmission Testing Performed By: #### G FR, CMP, DIFF, CBC, MORPH ####[address] [place], [place] [address] RBC 3.92 10 6/mcL Low 4.50-6.00 [facility] Comment on above: Order Comment: Pre-A dmission Testing Performed By: #### G FR, CMP, DIFF, CBC, MORPH ####[address] [place], [place] [address] WBC 12.0 10 3/mcL High 4.5-10.8 [facility] Comment on above: Order Comment: Pre-A dmission Testing Performed By: #### G FR, CMP, DIFF, CBC, MORPH ####[address] [place], [place] [address] CMPon 02-23-2024 Albumin Level 3.5 G/dL Normal 3.4-4.8 [facility] Comment on above: Performed By: #### G FR, CMP, DIFF, CBC, MORPH ####[address] [address] [place], [place] [address] Albumin/Globulin [Mass ratio] 1.1 {ratio} Normal 1.1-2.5 [facility] Comment on above: Performed By: #### G FR, CMP, DIFF, CBC, MORPH ####[address] [place], [place] [address] ALP [Catalytic activity/Vol] 115 U/L Normal 40-135 [facility] Comment on above: Performed By: #### G FR, CMP, DIFF, CBC, MORPH ####[place] [address] [place], [place] [address] ALT [Catalytic activity/Vol] 29 U/L Normal 16-63 [facility] Comment on above: Performed By: #### G FR, CMP, DIFF, CBC, MORPH ####[place] [address] [place], [place] [address] AST [Catalytic activity/Vol] 20 U/L Normal 10-40 [facility] Comment on above: Performed By: #### G FR, CMP, DIFF, CBC, MORPH ####[address] [place], [place] [address] Bili Total 0.4 mg/dL Normal 0.2-1.0 [facility] Comment on above: Result Comment: Use of this assay is not recommended for patients undergoing treatment with eltrombopag due to the potential for falsely elevated results. Performed By: #### G FR, CMP, DIFF, CBC, MORPH ####[address] [place], [place] [address] BUN/Creatinine Ratio 14 ratio Normal 7-27 [facility] Comment on above: Performed By: #### G FR, CMP, DIFF, CBC, MORPH ####[address] [place], [place] [address] Calcium [Mass/Vol] 9.1 mg/dL Normal 8.4-10.2 [facility] Comment on above: Performed By: #### G FR, CMP, DIFF, CBC, MORPH ####[address] [address] [place], [place] [address] Chloride [Moles/Vol] 105 mmol/L Normal 98-107 [facility] Comment on above: Performed By: #### G FR, CMP, DIFF, CBC, MORPH ####[address] [place], [place] [address] CO2 [Moles/Vol] 27 mmol/L Normal 23-31 [facility] Comment on above: Performed By: #### G FR, CMP, DIFF, CBC, MORPH ####[facility] [place], [place] [address] Creatinine [Mass/Vol] 0.98 mg/dL Normal 0.70-1.30 [facility] Comment on above: Result Comment: Test ing performed on Siemens Dimension EXL analyzer using a modified kinetic Wade technique. Performed By: #### G FR, CMP, DIFF, CBC, MORPH ####[address] [place], [place] [address] Electrolyte Balance 9.0 mEq/L Normal 4.0-15.0 [facility] Comment on above: Performed By: #### G FR, CMP, DIFF, CBC, MORPH ####[place] [address] [place], [place] [address] Globulin 3.1 G/dL Normal [facility] Comment on above: Performed By: #### G FR, CMP, DIFF, CBC, MORPH ####[address] [place], [place] [address] Glucose [Mass/Vol] 83 mg/dL Normal 80-115 [facility] Comment on above: Performed By: #### G FR, CMP, DIFF, CBC, MORPH ####[address] [place], [place] [address] Potassium [Moles/Vol] 4.1 mmol/L Normal 3.5-5.1 [facility] Comment on above: Performed By: #### G FR, CMP, DIFF, CBC, MORPH ####[address] [place], [place] [address] Sodium [Moles/Vol] 141 mmol/L Normal 136-145 [facility] Comment on above: Performed By: #### G FR, CMP, DIFF, CBC, MORPH ####[address] [place], [place] [address] Total Protein 6.6 G/dL Normal 6.4-8.2 [facility] Comment on above: Performed By: #### G FR, CMP, DIFF, CBC, MORPH ####[address] [place], [place] [address] Urea nitrogen [Mass/Vol] 14 mg/dL Normal 7-18 [facility] Comment on above: Performed By: #### G FR, CMP, DIFF, CBC, MORPH ####[address] [place], [place] [address] LABORATORYOrdered By: SYSTEM SYSTEM on 02-23-2024 Magnesium [Mass/Vol] 1.9 mg/dL Normal 1.8 - 2 .4 mg/dL AO ADM SS Albumin BCP dye [Mass/Vol] 3.5 G/dL Normal 3.4 - 4.8 G/dL AO ADM SS Albumin/Globulin [Mass ratio] 1.1 {ratio} Normal 1.1 - 2.5 ratio AO ADM SS ALP [Catalytic activity/Vol] 115 U/L Normal 40 - 135 U/L AO ADM SS ALT With P-5'-P [Catalytic activity/Vol] 29 U/L Normal 16 - 63 U/L AO ADM SS AST With P-5'-P [Catalytic activity/Vol] 20 U/L Normal 10 - 40 U/L AO ADM SS Basophil %, Manual 0.0 % Normal 0.0 - 2.5 % AO Wo rkflow SS Basophils (Bld) [#/Vol] 0.0 103/mcL Normal 0.0 - 0.2 10^3/mcL AO Workflow SS Bilirubin [Mass/Vol] 0.4 mg/dL Normal 0.2 - 1 .0 mg/dL AO ADM SS Comment on above: Interpretive Data: U se of this assay is not recommended for patients undergoing treatment with eltrombopag due to the potential for falsely elevated results. Calcium [Mass/Vol] 9.1 mg/dL Normal 8.4 - 10. 2 mg/dL AO ADM SS Chloride [Moles/Vol] 105 mmol/L Normal 98 - 10 7 mmol/L AO ADM SS CO2 [Moles/Vol] 27 mmol/L Normal 23 - 31 mmol/L AO ADM SS Creatinine [Mass/Vol] 0.98 mg/dL Normal 0.70 - 1.30 mg/dL AO ADM SS Comment on above: Interpretive Data: T esting performed on Siemens Dimension EXL analyzer using a modified kinetic Wade technique. Electrolyte Balance 9.0 mEq/L Normal 4.0 - 15 .0 mEq/L AO ADM SS Eosinophil %, Manual 12.7 % High 0.0 - 7.0 % AO Workflow SS Eosinophils (Bld) [#/Vol] 1.5 103/mcL High 0.0 - 0.7 10^3/mcL AO Workflow SS Erythrocyte distribution width (RBC) [Ratio] 13.4 % Normal 11.5 - 15.5 % AO Workflow SS GFR/1.73 sq M.predicted among blacks MDRD (S/P/Bld) [Vol rate/Area] 92 ml/min/1.73sqm Invalid Interpretation Code AO Chemistry S Comment on above: Interpretive Data: GFR Population mean for , Non- Americans Ages 20-29 = 116 mL/min/1.73 sq.m. Ages 30-39 = 107 mL/min/1.73 sq.m. Ages 40-49 = 99 mL/min/1.73 sq.m. Ages 50-59 = 93 mL/min/1.73 sq.m. Ages 60-69 = 85 mL/min/1.73 sq.m. Ages 70+ = 75 mL/min/1.73 sq.m. Chronic Kidney Disease: Less than 60 mL/min/1.73 square meters End Stage Renal Disease: Less than 15 mL/min/1.73 square meters GFR/1.73 sq M.predicted among non-blacks MDRD (S/P/Bld) [Vol rate/Area] 76 ml/min/1.73sqm Invalid Interpretation Code AO Chemistry S Comment on above: Interpretive Data: GFR Population mean for , Non- Americans Ages 20-29 = 116 mL/min/1.73 sq.m. Ages 30-39 = 107 mL/min/1.73 sq.m. Ages 40-49 = 99 mL/min/1.73 sq.m. Ages 50-59 = 93 mL/min/1.73 sq.m. Ages 60-69 = 85 mL/min/1.73 sq.m. Ages 70+ = 75 mL/min/1.73 sq.m. Chronic Kidney Disease: Less than 60 mL/min/1.73 square meters End Stage Renal Disease: Less than 15 mL/min/1.73 square meters Globulin 3.1 G/dL Invalid Interpretation Code AO ADM SS Glucose [Mass/Vol] 83 mg/dL Normal 80 - 115 mg/dL AO ADM SS Hematocrit (Bld) [Volume fraction] 40.1 % Normal 40.0 - 52.0 % AO Workflow SS Hemoglobin (Bld) [Mass/Vol] 13.3 G/dL Normal 13.0 - 17.5 G/dL AO Workflow SS Lymphocytes (Bld) [#/Vol] 3.2 103/mcL Normal 0.9 - 4.3 10^3/mcL AO Workflow SS Lymphocytes/100 WBC (Bld) 26.5 % Normal 20.0 - 40.0 % AO Workflow SS Macrocytes Ql (Bld) 1+ *NA* (02/23/24 11:34 AM) Invalid Interpretation Code AO Workflow SS MCH (RBC) [Entitic mass] 33.9 pg High 27.0 - 33.0 pg AO Workflow SS MCHC 33.1 G/dL Normal 32.0 - 36.0 G/dL AO Workflow SS MCV (RBC) [Entitic vol] 102.4 fL High 81.0 - 100.0 fL AO Workflow SS Monocytes (Bld) [#/Vol] 0.5 103/mcL Normal 0.1 - 1.4 10^3/mcL AO Workflow SS Monocytes/100 WBC (Bld) 3.9 % Normal 2.0 - 13.0 % AO Workflow SS Neutrophils (Bld) [#/Vol] 4.7 103/mcL Normal 2.3 - 8.1 10^3/mcL AO Workflow SS Neutrophils/100 WBC (Bld) 39.2 % Low 50.0 - 75.0 % AO Workflow SS Nucleated RBC 0.0 /100 WBC Invalid Interpretation Code AO Workflow SS Platelet mean volume (Bld) [Entitic vol] 8.3 fL Normal 6.4 - 10.5 fL AO Workflow SS Platelets (Bld) [#/Vol] 256 103/mcL Normal 150 - 450 10^3/mcL AO Workflow SS Platelets LM Ql (Bld) Normal *NA* (02/23/24 11:34 AM) Invalid Interpretation Code AO Workflow SS Potassium [Moles/Vol] 4.1 mmol/L Normal 3.5 - 5.1 mmol/L AO ADM SS Protein [Mass/Vol] 6.6 G/dL Normal 6.4 - 8.2 G/dL AO ADM SS RBC (Bld) [#/Vol] 3.92 106/mcL Low 4.50 - 6.0 0 10^6/mcL AO Workflow SS Sodium [Moles/Vol] 141 mmol/L Normal 136 - 145 mmol/L AO ADM SS Stomatocytes LM Ql (Bld) 1+ *NA* (02/23/24 11:34 AM) Invalid Interpretation Code AO Workflow SS Urea nitrogen [Mass/Vol] 14 mg/dL Normal 7 - 18 mg/dL AO ADM SS Urea nitrogen/Creatinine [Mass ratio] 14 ratio Normal 7 - 27 ratio AO ADM SS Variant lymphocytes/100 WBC (Bld) 17.7 % High 0.0 - 5.0 % AO Workflow SS WBC (Bld) [#/Vol] 12.0 103/mcL High 4.5 - 10.8 10^3/mcL AO Workflow SS MGon 02-23-2024 Magnesium [Mass/Vol] 1.9 mg/dL Normal 1.8-2.4 [facility] Comment on above: Performed By: #### M G #### [facility] [address] [place], [place] [address] CT THORAX SCREENING W/O CONT RASTon 02-06-2024 CT THORAX SCREENING W/O CONTRAST ORIGINAL EXAMINATION: LOW DOSE SCREENING CT OF THE CHEST WITHOUT AEABXXLF03/1/2024 7:36 am TECHNIQUE: Low dose lung cancer screening CT of the chest was performed without the administration of intravenous contrast. Multiplanar reformatted images are provided for review. Automated exposure control, iterative reconstruction, and/or weight based adjustment of the mA/kV was utilized to reduce the radiation dose to as low as reasonably achievable. COMPARISON: None. HISTORY: ORDERING SYSTEM PROVIDED HISTORY: Reason for Exam: smoker, lung cancer screening 5ft 8in 136lb white male. current smoker. no current complaints. 120 pack years. brother had lung ca FINDINGS: Median sternotomy wires are noted. The heart is normal in size. Atherosclerosis seen of the coronary arteries and aorta. The great vessels appear normal in caliber. There are enlarged right axillary lymph nodes measuring up to 1.9 cm in short axis. Borderline enlarged left axillary lymph nodes measuring up to 1.1 cm in short axis. There are partially calcified right hilar and mediastinal lymph nodes likely from prior granulomatous disease. No definitely pathologically enlarged mediastinal or hilar lymph nodes. Please see separately dictated CT abdomen and pelvis from same day for findings below the diaphragm. Trace secretions within the trachea. Moderate emphysema. Mild bilateral scattered pleural and parenchymal scarring greatest within the lung apices. There is a calcified granuloma within the right upper lobe. No focal consolidation, pleural effusion or pneumothorax. There is a 3 mm pulmonary nodule along the right minor fissure within the right middle lobe (series 4, image 81). 4 mm pulmonary nodule within the right middle lobe seen on image 96. 3 mm left upper lobe nodule seen on image 80 and image 96. There is a 1.1 cm left lower lobe pulmonary nodule seen on image 129. No aggressive osseous lesions visible. Degenerative changes seen in the spine. IMPRESSION: 1.1 cm left lower lobe pulmonary nodule. Additional small bilateral pulmonary nodules. Recommend low-dose CT follow-up in 3 months. Bilateral axillary lymphadenopathy, most severe on the right. Recommend tissue sampling. Atherosclerosis with coronary artery calcifications. Information below is for Lung nodule tracking purposes: Nodule: S10 BLN Other Findings: P-SFNL P-CAC Change: Na Recall : 3m fu Recall Type: LDCT LungRads: 4As Interpreted by: Anastacio Barber Preliminary Report By: Anastacio Barber Electronically signed By Anastacio Barber Dictated Date: 02/06/2024 9:13:27 AM Prelim Date: 02/06/2024 9:30:36 AM Sign Date: 02/06/2024 9:30:36 AM Ordering Provider: PARISH GRAFF [facility] US SOFT TISSUE MASS OF ARM O R LEG BILATon 02-04-2024 US SOFT TISSUE MASS OF ARM OR LEG BILAT ORIGINAL EXAMINATION: SOFT TISSUE [id number]/1/2024 7:36 am COMPARISON: None TECHNIQUE: Bilateral groin ultrasound HISTORY: ORDERING SYSTEM PROVIDED HISTORY: Reason for Exam: abd pain, fixed groin lymphadenopathy,, FINDINGS: There are multiple bilateral enlarged inguinal lymph nodes. Many of these do not have a fatty hilum. The largest palpable lymph node on the right side is a 19 x 9 x 14 mm hypoechoic lymph node without a fatty hilum. At least 5 lymph nodes are seen on the left largest is 32 x 28 x 12 mm with 5 mm of cortical thickness. This does have a fatty vascular hilum. IMPRESSION: Bilateral inguinal lymphadenopathy as described. Many of the lymph nodes do not have a characteristic benign reactive morphology. There etiology and histopathologic nature is indeterminate and uncertain from this study. Interpreted by: Justo Watkins MD Preliminary Report By: Justo Watkins MD Electronically signed By Justo Watkins MD Dictated Date: 02/04/2024 9:51:12 AM Prelim Date: 02/04/2024 9:54:34 AM Sign Date: 02/04/2024 9:54:34 AM Ordering Provider: PARISH GRAFF [facility] CT ABDOMEN/PELVIS W/CONTRAST on 02-03-2024 CT ABDOMEN/PELVIS W/CONTRAST ORIGINAL EXAMINATION: CT OF THE ABDOMEN AND PELVIS WITH KGBUBGHJ14/1/2024 9:13 am TECHNIQUE: CT of the abdomen and pelvis was performed with the administration of intravenous contrast. Multiplanar reformatted images are provided for review. Automated exposure control, iterative reconstruction, and/or weight based adjustment of the mA/kV was utilized to reduce the radiation dose to as low as reasonably achievable. COMPARISON: None HISTORY: ORDERING SYSTEM PROVIDED HISTORY: Reason for Exam: abd pain, fixed groin lymphadenopathy, evaluate for mass FINDINGS: The liver is unremarkable in contour. No suspicious hepatic lesions.Small focus of fatty deposition along the anterior falciform ligament.There is no intra or extrahepatic biliary duct dilation. The pancreas, spleen, and bilateral adrenal glands are unremarkable. The kidneys enhance symmetrically.No hydronephrosis.No suspicious renal lesions. Moderate circumferential thickening and enhancement of the urinary bladder wall. No focal mass. Unremarkable appearance of the stomach.No dilated loops of small bowel or small bowel wall thickening.No acute or suspicious colonic abnormality.Nonvisualized appendix; pericecal inflammation. 1.5 cm left para-aortic lymph node in the retroperitoneum. Left inguinal adenopathy up to 1.3 cm. Nonaneurysmal mildly atherosclerotic aortoiliac arteries. No acute osseous abnormality.No aggressive osseous lesions.Varying degrees of multifocal degenerative change, most notably at L5-S1. The partially imaged lower chest is dictated separately. IMPRESSION: Thickening and enhancement of the urinary bladder wall. Correlate with urinalysis for cystitis. 1.5 cm left periaortic lymph node and left inguinal adenopathy up to 1.3 cm. This may be sequela of lymphoproliferative disorder. Other neoplastic and hyperplastic etiologies are not excluded. I have personally reviewed the images of this examination and agree with the resident's findings and interpretation. Interpreted by: Parish Blank MD Preliminary Report By: Parish Miranda Electronically signed By Parish Blank MD Dictated Date: 02/03/2024 11:36:13 AM Prelim Date: 02/03/2024 2:46:30 PM Sign Date: 02/03/2024 2:46:30 PM Ordering Provider: PARISH Fine [facility] Absolute lymphocyte countOrd ered By: Thai Nice on 05-23-2023 Lymphocytes Auto (Unsp spec) [#/Vol] 6.21 10*3/uL 0.83-4.51 [facility] Automated lymphocyte count a s percentage of total leukocytesOrdered By: Thai Nice on 05-23-2023 Lymphocytes/100 WBC Auto (Unsp spec) 54.3 % 19-41 [facility] Basophil percentageOrdered B y: Thai Nice on 05-23-2023 Basophils/100 WBC (Bld) 0.4 % 0-1 [facility] Chloride [Moles/Vol] 110 mmol/L 98-107 [facility] Eosinophils/100 WBC (Bld) 8.4 % 0-5 [facility] Glucose [Mass/Vol] 86 mg/dL 74-106 [facility] Hemoglobin (Bld) [Mass/Vol] 12.9 g/dL 13.0-16.5 [facility] Monocytes/100 WBC (Bld) 10.4 % 0-10 [facility] Neutrophils (Bld) [#/Vol] 3.0 10*3/uL 2.0-7.7 [facility] Neutrophils/100 WBC (Bld) 26.4 % 47-70 [facility] Potassium [Moles/Vol] 3.9 mmol/L 3.5-5.1 [facility] Sodium [Moles/Vol] 139 mmol/L 136-145 [facility] WBC (Bld) [#/Vol] 11.4 10*3/uL 4.4-11.0 [facility] Blood manual differential co mment interpretation (narrative result)Ordered By: Thai Nice on 05-23-2023 Manual differential comment Bari (Bld) [Interp] See comment [facility] Comment on above: LYMPHOCYTOSIS NOTED Determination of erythrocyte mean corpuscular volume (MCV)Ordered By: Thai Nice on 05-23-2023 MCV (RBC) [Entitic vol] 99.5 fL 80-94 [facility] Erythrocyte distribution wid th ratioOrdered By: Thai Nice on 05-23-2023 Erythrocyte distribution width (RBC) [Ratio] 12.5 % 11.6-14.6 [facility] Erythrocyte distribution wid th standard deviationOrdered By: Thai Nice on 05-23-2023 Erythrocyte distribution width (RBC) [Entitic vol] 45.4 fL 35.1-43.9 [facility] Hematocrit Auto (Bld) [Volum e fraction]Ordered By: Thai Nice on 05-23-2023 Hematocrit (Bld) [Volume fraction] 38.5 % 40-54 [facility] Immature granulocytes/100 WB C Auto (Bld)Ordered By: Thai Nice on 05-23-2023 Immature granulocytes/100 WBC (Bld) 0.100 % 0.0-0.9 [facility] Comment on above: IG% - Immature Granu locytes (promyelocytes, myelocytes and metamyelocytes) > 1% indicates that a LEFT SHIFT is Present. Laboratory - Chemistry and C hemistry - challengeOrdered By: Thai Nice on 05-23-2023 CO2 [Moles/Vol] 28.0 mmol/L 21.0-32.0 [facility] Natriuretic peptide B (Bld) [Mass/Vol] 21.9 pg/mL 0-100 [facility] Urea nitrogen/Creatinine [Mass ratio] 14.1 mg/mg 10-20 [facility] Laboratory - Hematology and Cell countsOrdered By: Thai Niec on 05-23-2023 MCH (RBC) [Entitic mass] 33.3 pg 27.0-32.0 [facility] MCHC (RBC) [Mass/Vol] 33.5 g/dL 32-36 [facility] Nucleated RBC/100 WBC (Bld) [Ratio] 0 % 0-5 [facility] Platelet mean volume (Bld) [Entitic vol] 10.7 fL 6.2-12.0 [facility] Platelets (Bld) [#/Vol] 246 10*3/uL 150-450 [facility] No Panel InformationOrdered By: Thai Nice on 05-23-2023 Troponin I High Sensitivity 7 pg/mL 3.0-78.0 [facility] Comment on above: Please Note: New Rneay t Units and Gender Specific Reference Ranges. For more information see Policy Stat Procedure [place] High Sensitivity Troponin (TNIH) and attachments. Estimated Creatinine Clearance Calc 67.88 ml/min [facility] Estimated GFR (MDRD) Amer 96 mL/min >60 [facility] Comment on above: GFR Calc Estimated GFR (MDRD) Non-Af Amer 80 mL/min >60 [facility] Comment on above: Non- GFR Calc RBC Auto (Bld) [#/Vol]Ordere d By: Thai Nice on 05-23-2023 RBC (Bld) [#/Vol] 3.87 10*6/uL 4.6-6.2 [facility] Serum or plasma calcium sadi urement (mass/volume)Ordered By: Thai Nice on 05-23-2023 Calcium [Mass/Vol] 8.8 mg/dL 8.5-10.1 [facility] Serum or plasma creatinine m easurement (mass/volume)Ordered By: Thai Nice on 05-23-2023 Creatinine [Mass/Vol] 0.99 mg/dL 0.70-1.30 [facility] Comment on above: The validity of the calculated GFR & GFRAA in patients over 70 years has not been determined. Clinical correlation is essential. Serum or plasma urea nitroge n measurement (mass/volume)Ordered By: Thai Nice on 05-23-2023 Urea nitrogen [Mass/Vol] 14 mg/dL 7- [facility] Thin prep Papanicolaou smear with manual screeningOrdered By: Thai Nice on 05-23-2023 Thin prep Papanicolaou smear with manual screening 1 5- [facility] US SOFT TISSUE Jolynn 2023 US SOFT TISSUE MASS ORIGINAL EXAMINATION: SOFT TISSUE ULTRASOUND04/20/2023 12:48 pm COMPARISON: None HISTORY: ORDERING SYSTEM PROVIDED HISTORY: Reason for Exam: US soft tissue mass right low back, painful, FINDINGS: Scanning of the palpable lump in the right lower back shows a well-circumscribed ovoid solid mass in the superficial subcutaneous space that is 2.9 x 0.6 x 3.0 cm. The mass is isoechoic to the adjacent subcutaneous fat with no significant blood flow. IMPRESSION: Solid mass corresponding to the palpable lump. Sonographic appearance would be compatible with a lipoma. The patient's complain of painful mass however is not typical for a lipoma. Ultrasound however cannot be histologically specific and cannot predict biological behavior of soft tissue lesions. The need for follow-up evaluation or intervention should be predicated on clinical criteria including pain and interval increase in size. Interpreted by: Justo Watkins MD Preliminary Report By: Justo Watkins MD Electronically signed By Justo Watkins MD Dictated Date: 04/21/2023 3:18:36 PM Prelim Date: 04/21/2023 3:19:36 PM Sign Date: 04/21/2023 3:19:36 PM Ordering Provider: PARISH GRAFF [facility] ([place] NM MYOCARDIAL SPECT STRESS/R ESTon 03-16-2023 NM MYOCARDIAL SPECT STRESS/REST ORIGINAL NM MYOCARDIAL SPECT STRESS/REST CLINICAL STATEMENT: syncope, known heart disease TECHNIQUE: Lexiscan dose:0.4 mg Radiopharmaceutical (stress): Tc-99m Sestamibi Dose:31.8 mCi Radiopharmaceutical (rest): Tc-99m Sestamibi Dose:10.3 mCi SPECT acquisition and processing Reconstruction and reorientation of SPECT images into short axis, vertical and horizontal long axis planes Quantitative LVEF assessment COMPARISON:none REPORT: Post stress myocardial perfusion images showed moderate perfusion defect at inferior wall, mid basal inferolateral/inferoseptal chang Resting images showed similar perfusion Increased RV uptake was noted GI uptake artifact was ntoed at inferior wall LVEF 44% with focal wall motion abnormality anteroseptal and anterior chang and apex, reduced thickening at inferior wall TID 1.01 IMPRESSION: Suggestive apical infarct/hibernation; no perfusion miss match to suggest ischemia LVEF 44 % with focal wall motion abnormality anteroseptal and anterior chang and apex, reduced thickening at inferior wall Interpreted By: Amor Almaraz Preliminary Report By: Amor Almaraz Electronically Signed By: Amor Almaraz Dictated Date: 03/16/2023 4:43:01 PM Prelim Date: 03/16/2023 4:43:01 PM Sign Date: 03/16/2023 4:53:33 PM Ordering Provider:Parish Graff [facility]) IraisWBon 03-10-2023 Vitamin B1 Whl Bld 158.2 nmol/L Normal 66.5-200.0 [facility]) Comment on above: Result Comment: This test was developed and its performance characteristics determined by [facility]. It has not been cleared or approved by the Food and Drug Administration. Performed At: [address] [id number] [place] MD Ph:[phone] Performed By: #### A LC, DRUGS #### [address] [address] B12on 03-05-2023 Cobalamin (Vitamin B12) [Mass/Vol] 316 pg/mL Normal 211-911 [facility] ([place]) Comment on above: Performed By: #### A LC, DRUGS #### [address] [address] .Auto Diffon 03-04-2023 Basophil, Absolute 0.0 10 3/mcL Normal 0.0-0.2 [facility] ([place]) Comment on above: Performed By: #### A LC, DRUGS #### [address] [address] Basophils/100 WBC (Bld) 0.5 % Normal 0.0-2.5 [facility] ([place]) Comment on above: Performed By: #### A LC, DRUGS #### [address] [address] Eosinophil, Absolute 1.3 10 3/mcL High 0.0-0.4 [facility] ([place]) Comment on above: Performed By: #### A LC, DRUGS #### [address] [address] Eosinophils/100 WBC (Bld) 12.1 % High 0.0-7.0 [facility] ([place]) Comment on above: Performed By: #### A LC, DRUGS #### [address] [address] Lymphocyte, Absolute 4.7 10 3/mcL High 0.8-3.9 [facility] ([place]) Comment on above: Performed By: #### A LC, DRUGS #### [address] [address] Lymphocytes/100 WBC (Bld) 43.9 % Normal 10.0-50.0 [facility] ([place]) Comment on above: Performed By: #### A LC, DRUGS #### [address] [address] Monocyte, Absolute 0.7 10 3/mcL Normal 0.2-1.0 [facility] ([place]) Comment on above: Performed By: #### A LC, DRUGS #### [address] [address] Monocytes/100 WBC (Bld) 6.5 % Normal 1.7-13.0 [facility] ([place]) Comment on above: Performed By: #### A LC, DRUGS #### [address] [address] Neutrophils/100 WBC (Bld) 37.0 % Normal 37.0-80.0 [facility] ([place]) Comment on above: Performed By: #### A LC, DRUGS #### [address] [address] .GFRon 03-04-2023 GFR 82 ml/min/1.73sqm Normal [facility] ([place]) Comment on above: Result Comment: GFR Population mean for , Non- Americans Ages 20-29 = 116 mL/min/1.73 sq.m. Ages 30-39 = 107 mL/min/1.73 sq.m. Ages 40-49 = 99 mL/min/1.73 sq.m. Ages 50-59 = 93 mL/min/1.73 sq.m. Ages 60-69 = 85 mL/min/1.73 sq.m. Ages 70+ = 75 mL/min/1.73 sq.m. Chronic Kidney Disease: Less than 60 mL/min/1.73 square meters End Stage Renal Disease: Less than 15 mL/min/1.73 square meters Performed By: #### A LC, DRUGS #### [address] [address] GFR Non- 68 ml/min/1.73sqm Normal [facility] ([place]) Comment on above: Result Comment: GFR Population mean for , Non- Americans Ages 20-29 = 116 mL/min/1.73 sq.m. Ages 30-39 = 107 mL/min/1.73 sq.m. Ages 40-49 = 99 mL/min/1.73 sq.m. Ages 50-59 = 93 mL/min/1.73 sq.m. Ages 60-69 = 85 mL/min/1.73 sq.m. Ages 70+ = 75 mL/min/1.73 sq.m. Chronic Kidney Disease: Less than 60 mL/min/1.73 square meters End Stage Renal Disease: Less than 15 mL/min/1.73 square meters Performed By: #### A LC, DRUGS #### [place] [address] .NEUABSon 03-04-2023 Neutrophil, Absolute 4.0 10 3/mcL Normal 2.9-6.2 [facility] ([place]) Comment on above: Performed By: #### A LC, DRUGS #### [place] [address] A1Con 03-04-2023 HbA1c (Bld) [Mass fraction] 6.0 % Normal 4.3-6.4 [facility] ([place]) Comment on above: Performed By: #### A GUTIERREZ, DRUGS #### [place] [address] CBCon 03-04-2023 Erythrocyte distribution width (RBC) [Ratio] 12.8 % Normal 11.5-14.5 [facility] ([place]) Comment on above: Performed By: #### A GUTIERREZ, DRUGS #### [place] [address] Hematocrit (Bld) [Volume fraction] 39.1 % Low 42.0-52.0 [facility] ([place]) Comment on above: Performed By: #### A GUTIERREZ, DRUGS #### [place] [address] Hgb 13.1 G/dL Low 14.0-18.0 [facility] ([place] Comment on above: Performed By: #### A LC, DRUGS #### [place] [address] MCH (RBC) [Entitic mass] 33.5 pg High 27.0-31.2 [facility] ([place]) Comment on above: Performed By: #### A LC, DRUGS #### [place] [address] MCHC 33.5 G/dL Normal 31.8-35.4 [facility] ([place]) Comment on above: Performed By: #### A GUTIERREZ, DRUGS #### [place] [id number] MCV (RBC) [Entitic vol] 100.2 fL High 80.0-94.0 [facility] ([place]) Comment on above: Performed By: #### A LC, DRUGS #### [place] [id number] Platelet 249 10 3/mcL Normal 130-400 [facility] ([place]) Comment on above: Performed By: #### A GUTIERREZ, DRUGS #### [place] [id number] Platelet mean volume (Bld) [Entitic vol] 8.4 fL Normal 7.4-10.4 [facility] ([place]) Comment on above: Performed By: #### A GUTIERREZ, DRUGS #### [place] [id number] RBC 3.90 10 6/mcL Low 4.04-6.13 [facility] ([place]) Comment on above: Performed By: #### A GUTIERREZ, DRUGS #### [place] [id number] WBC 10.7 10 3/mcL Normal 4.6-10.8 [facility] ([place] Comment on above: Performed By: #### A GUTIERREZ, DRUGS #### [place] [address] CMPon 03-04-2023 Albumin Level 3.5 G/dL Normal 3.4-4.8 [facility] ([place]) Comment on above: Performed By: #### A GUTIERREZ, DRUGS #### [place] [address] Albumin/Globulin [Mass ratio] 1.2 {ratio} Normal 1.1-2.5 [facility] ([place]) Comment on above: Performed By: #### A LC, DRUGS #### [place] [id number] ALP [Catalytic activity/Vol] 87 U/L Normal 40-135 [facility] ([place]) Comment on above: Performed By: #### A GUTIERREZ, DRUGS #### [facility] [address] [place], [place] [address] ALT [Catalytic activity/Vol] 33 U/L Normal 16-63 [facility] ([place]) Comment on above: Performed By: #### A LC, DRUGS #### [address] [address] AST [Catalytic activity/Vol] 18 U/L Normal 10-40 [facility] ([place]) Comment on above: Performed By: #### A LC, DRUGS #### [address] [address] Bili Total 0.5 mg/dL Normal 0.2-1.0 [facility] ([place]) Comment on above: Result Comment: Use of this assay is not recommended for patients undergoing treatment with eltrombopag due to the potential for falsely elevated results. Performed By: #### A LC, DRUGS #### [place] [id number] BUN/Creatinine Ratio 14 ratio Normal 7-27 [facility] ([place]) Comment on above: Performed By: #### A LC, DRUGS #### [address] [address] Calcium [Mass/Vol] 8.9 mg/dL Normal 8.4-10.2 [facility] ([place]) Comment on above: Performed By: #### A LC, DRUGS #### [address] [address] Chloride [Moles/Vol] 103 mmol/L Normal 98-107 [facility] ([place] Comment on above: Performed By: #### A LC, DRUGS #### [address] [address] CO2 [Moles/Vol] 30 mmol/L Normal 23-31 [facility] ([place]) Comment on above: Performed By: #### A LC, DRUGS #### [address] [address] Creatinine [Mass/Vol] 1.08 mg/dL Normal 0.70-1.30 [facility] ([place]) Comment on above: Performed By: #### A LC, DRUGS #### [address] [address] Electrolyte Balance 6.0 mEq/L Normal 4.0-15.0 [facility] ([place]) Comment on above: Performed By: #### A LC, DRUGS #### [address] [address] Globulin 3.0 G/dL Normal [facility] ([place]) Comment on above: Performed By: #### A LC, DRUGS #### [address] [address] Glucose [Mass/Vol] 84 mg/dL Normal 80-115 [facility] ([place]) Comment on above: Performed By: #### A LC, DRUGS #### [address] [address] Potassium [Moles/Vol] 4.9 mmol/L Normal 3.5-5.1 [facility] ([place] Comment on above: Performed By: #### A LC, DRUGS #### [place] [id number] Sodium [Moles/Vol] 139 mmol/L Normal 136-145 [facility] ([place]) Comment on above: Performed By: #### A LC, DRUGS #### [place] [address] Total Protein 6.5 G/dL Normal 6.4-8.2 [facility] ([place]) Comment on above: Performed By: #### A LC, DRUGS #### [place] [id number] Urea nitrogen [Mass/Vol] 15 mg/dL Normal 7-18 [facility] ([place] Comment on above: Performed By: #### A LC, DRUGS #### [address] [address] FT4on 03-04-2023 Free T4 [Mass/Vol] 0.84 ng/dL Normal 0.76-1.46 [facility] ([place]) Comment on above: Performed By: #### A LC, DRUGS #### [address] [address] MGon 03-04-2023 Magnesium [Mass/Vol] 2.0 mg/dL Normal 1.8-2.4 [facility] ([place]) Comment on above: Performed By: #### A LC, DRUGS #### [facility] [address] [place] [address] TSHon 03-04-2023 TSH Qn 2.11 m[IU]/L Normal 0.36-3.74 [facility] ([place]) Comment on above: Performed By: #### A LC, DRUGS #### [facility] [address] [place] [address] Absolute lymphocyte countOrd ered By: Meaghan Sanchez on 02-27-2023 Lymphocytes Auto (Unsp spec) [#/Vol] 5.26 10*3/uL 0.83-4.51 [facility] Basophil percentageOrdered B y: Meaghan Mcraesofíaraisa on 02-27-2023 Basophil percentage 0 SEEN /hpf 0-5 [facility] Basophil percentage 88 mg/dL 74-106 [facility] Basophil percentage 6.4 g/dL 6.4-8.2 [facility] Basophil percentage 0.60 mg/dL 0.20-1.00 [facility] Basophil percentage 140 mmol/L 136-145 [facility] Basophil percentage 4.4 mmol/L 3.5-5.1 [facility] Basophil percentage 102 mmol/L 98-107 [facility] Basophils (Bld) [#/Vol] 11.8 10*3/uL 4.4-11.0 [facility] Basophils (Bld) [#/Vol] 4.7 10*3/uL 2.0-7.7 [facility] Basophils/100 WBC (Bld) 39.6 % 47-70 [facility] Basophils/100 WBC (Bld) 9.8 % 0-5 [facility] Basophils/100 WBC (Bld) 0.6 % 0-1 [facility] Bilirubin [Mass/Vol] 0.60 mg/dL 0.20-1.00 [facility] Comment on above: For patients on eltr ombopag therapy, use of Dimension [place] TBIL is not recommended. Chloride [Moles/Vol] 102 mmol/L 98-107 [facility] Eosinophils/100 WBC (Bld) 9.8 % 0-5 [facility] Glucose [Mass/Vol] 88 mg/dL 74-106 [facility] Neutrophils (Bld) [#/Vol] 4.7 10*3/uL 2.0-7.7 [facility] Neutrophils/100 WBC (Bld) 39.6 % 47-70 [facility] Potassium [Moles/Vol] 4.4 mmol/L 3.5-5.1 [facility] Protein [Mass/Vol] 6.4 g/dL 6.4-8.2 [facility] Sodium [Moles/Vol] 140 mmol/L 136-145 [facility] WBC (Bld) [#/Vol] 11.8 10*3/uL 4.4-11.0 [facility] Bilirubin Test strip Ql (U)O rdered By: Meaghan Sanchez on 02-27-2023 Bilirubin Ql (U) Negative Negative [facility] Blood erythrocytes count (nu mber/volume)Ordered By: Meaghan Sanchez on 02-27-2023 RBC (Bld) [#/Vol] 4.06 10*6/uL 4.6-6.2 [facility] Blood hemoglobin measurement (mass/volume)Ordered By: Meaghan Sanchez on 02-27-2023 Hemoglobin (Bld) [Mass/Vol] 13.6 g/dL 13.0-16.5 [facility] Blood lymphocytes/100 leukoc ytesOrdered By: Meaghan Sanchez on 02-27-2023 Lymphocytes/100 WBC (Bld) 44.5 % 19-41 [facility] Blood manual differential co mment interpretation (narrative result)Ordered By: Meaghan Sanchez on 02-27-2023 Manual differential comment Bari (Bld) [Interp] SCANNED [facility] Blood monocytes/100 leukocyt esOrdered By: Meaghan Sanchez on 02-27-2023 Monocytes/100 WBC (Bld) 5.2 % 0-10 [facility] Blood platelet mean volumeOr dered By: Meaghan Sanchez on 02-27-2023 Platelet mean volume (Bld) [Entitic vol] 9.9 fL 6.2-12.0 [facility] Determination of erythrocyte mean corpuscular volume (MCV)Ordered By: Meaghan Sanchez on 02-27-2023 MCV (RBC) [Entitic vol] 100.0 fL 80-94 [facility] Hematocrit Auto (Bld) [Volum e fraction]Ordered By: Meaghan Sanchez on 02-27-2023 Hematocrit (Bld) [Volume fraction] 40.6 % 40-54 [facility] Ketones Test strip Ql (U)Ord ered By: Meaghan Sanchez on 02-27-2023 Ketones Ql (U) Negative Negative [facility] Laboratory - Chemistry and C hemistry - challengeOrdered By: Meaghan Sanchez on 02-27-2023 ALP [Catalytic activity/Vol] 80 U/L 45-117 [facility] ALT [Catalytic activity/Vol] 36 U/L 16-61 [facility] CO2 [Moles/Vol] 34.0 mmol/L 21.0-32.0 [facility] Globulin (S) [Mass/Vol] 3.1 g/dL 2.2-4.2 [facility] Urea nitrogen/Creatinine [Mass ratio] 12.6 mg/mg 10-20 [facility] Laboratory - Drug toxicology Ordered By: Meaghan Sanchez on 02-27-2023 Amphetamines Ql (U) Negative <1000 ng/mL [facility] Benzodiazepines Ql (U) Negative < 200 ng/mL [facility] Cannabinoids Screen Ql (U) Negative < 50 ng/mL [facility] Cocaine Ql (U) Negative < 300 ng/mL [facility] Opiates Ql (U) Negative < 300 ng/mL [facility] Laboratory - Hematology and Cell countsOrdered By: Meaghan Sanchez on 02-27-2023 Erythrocyte distribution width (RBC) [Entitic vol] 46.4 fL 35.1-43.9 [facility] Erythrocyte distribution width (RBC) [Ratio] 12.5 % 11.6-14.6 [facility] Immature granulocytes/100 WBC (Bld) 0.300 % 0.0-0.9 [facility] Comment on above: IG% - Immature Granu locytes (promyelocytes, myelocytes and metamyelocytes) > 1% indicates that a LEFT SHIFT is Present. MCH (RBC) [Entitic mass] 33.5 pg 27.0-32.0 [facility] Nucleated RBC/100 WBC (Bld) [Ratio] 0 % 0-5 [facility] MCHC Auto (RBC) [Mass/Vol]Or dered By: Meaghan Sanchez on 02-27-2023 MCHC (RBC) [Mass/Vol] 33.5 g/dL 32-36 [facility] Mucus LM Ql (Urine sed)Order ed By: Meaghan Sanchez on 02-27-2023 Mucus Ql (Urine sed) 0 SEEN /hpf [facility] Nitrite Test strip Ql (U)Ord ered By: Meaghan Sanchez on 02-27-2023 Nitrite Ql (U) Negative Negative [facility] No Panel InformationOrdered By: Meaghan Sanchez on 02-27-2023 MDMA (Ecstasy) Screen Negative < 500 ng/mL [facility] Urine Barbiturates Screen Positive < 200 ng/mL [facility] Urine Drug Screen Comment [facility] Comment on above: CONFIRMATORY TESTING FOR ALL POSITIVE URINE DRUG SCREENRESULTS WILL ONLY BE SENT OUT UPON PHYSICIAN ORDER. VISTA Urine Drug Screen methods provide only preliminaryanalytical test results. A more specific alternate chemicalmethod must be used in order to obtain a confirmedanalytical result. Gas chromatography/mass spectrometery(GC/MS) is the preferred confirmatory method. Clinicalconsideration and professional judgement should be appliedto any drug of abuse test result, particularly whenpreliminary positive results are used. URINE TCA TESTING MUST BE ORDERED SEPARATELY. USE TESTMNEMONIC: [facility] Urine Methadone Screen Negative < 300 ng/mL [facility] Negative < 50 ng/mL [facility] Positive < 200 ng/mL [facility] Estimated GFR (MDRD) Amer 92 mL/min >60 [facility] Comment on above: GFR Calc Estimated GFR (MDRD) Non-Af Amer 76 mL/min >60 [facility] Comment on above: Non- GFR Calc Troponin I High Sensitivity 7 pg/mL 3.0-78.0 [facility] Comment on above: Please Note: New Renay t Units and Gender Specific Reference Ranges. For more information see Policy Stat Procedure [place] High Sensitivity Troponin (TNIH) and attachments. 33.5 pg 27.0-32.0 [facility] 12.5 % 11.6-14.6 [facility] 46.4 fl 35.1-43.9 [facility] 0.300 % 0.0-0.9 [facility] 0 % 0-5 [facility] 76 mL/min >60 [facility] 92 mL/min >60 [facility] 12.6 RATIO 10-20 [facility] 3.1 g/dL 2.2-4.2 [facility] 7 pg/mL 3.0-78.0 [facility] 80 U/L 45-117 [facility] 36 U/L 16-61 [facility] 34.0 mmol/L 21.0-32.0 [facility] Platelets bldOrdered By: Lori Sanchez on 02-27-2023 Platelets (Bld) [#/Vol] 261 10*3/uL 150-450 [facility] Protein Test strip Ql (U)Ord ered By: Meaghan Sanchez on 02-27-2023 Protein Ql (U) Negative Negative [facility] Serum or plasma albumin sadi urement (mass/volume)Ordered By: Meaghan Sanchez on 02-27-2023 Albumin [Mass/Vol] 3.3 g/dL 3.2-5.0 [facility] Serum or plasma albumin/glob ulin mass ratioOrdered By: Meaghan Sanchez on 02-27-2023 Albumin/Globulin [Mass ratio] 1.1 {ratio} 0.9-2.4 [facility] Serum or plasma calcium sadi urement (mass/volume)Ordered By: Meaghan Sanchez on 02-27-2023 Calcium [Mass/Vol] 8.8 mg/dL 8.5-10.1 [facility] Serum or plasma creatinine m easurement (mass/volume)Ordered By: Meaghan Sanchez on 02-27-2023 Creatinine [Mass/Vol] 1.03 mg/dL 0.70-1.30 [facility] Comment on above: The validity of the calculated GFR & GFRAA in patients over 70 years has not been determined. Clinical correlation is essential. Serum or plasma urea nitroge n measurement (mass/volume)Ordered By: Meaghan Sanchez on 02-27-2023 Urea nitrogen [Mass/Vol] 13 mg/dL 7-18 [facility] Squamous epithelial cells de tection in urine sediment by light microscopyOrdered By: Meaghan Sanchez on 02-27-2023 Epithelial cells.squamous LM Ql (Urine sed) 0 SEEN /hpf 0-5 [facility] Thin prep Papanicolaou smear with manual screeningOrdered By: Meaghan Sanchez on 02-27-2023 Thin prep Papanicolaou smear with manual screening 22 U/L 15-37 [facility] Thin prep Papanicolaou smear with manual screening 4 5-15 [facility] Urine blood detectionOrdered By: Meaghan Sanchez on 02-27-2023 RBC Ql (U) Negative Negative [facility] RBC Ql (U) 0 SEEN /hpf 0-5 [facility] Urine clarityOrdered By: Lori Sanchez on 02-27-2023 Clarity (U) Clear Clear [facility] Urine color determinationOrd ered By: Meaghan Sanchez on 02-27-2023 Color (U) Yellow Yellow [facility] Urine glucose detectionOrder ed By: Meaghan Sanchez on 02-27-2023 Glucose Ql (U) Normal mg/dl Normal [facility] Urine leukocyte esterase det ection by dipstickOrdered By: Meaghan Sanchez on 02-27-2023 Leukocyte esterase Test strip Ql (U) Negative Negative [facility] Urine pHOrdered By: Meaghan cordova on 02-27-2023 pH (U) 8.0 [pH] 5.0 - 8.0 [facility] Urine phencyclidine (PCP) de tectionOrdered By: Meaghan Sanchez on 02-27-2023 Phencyclidine Ql (U) Negative < 25 ng/mL [facility] Urine sediment bacteria coun t by microscopy (number/high power field)Ordered By: Meaghan Sanchez on 02-27-2023 Bacteria LM.HPF (Urine sed) [#/Area] 0 /[HPF] None Seen [facility] Urine specific gravity measu rementOrdered By: Meaghan Sanchez on 02-27-2023 Specific gravity (U) [Rel density] 1.010 1.002-1.030 [facility] Urobilinogen Auto test strip Ql (U)Ordered By: Meaghan Sanchez on 02-27-2023 Urobilinogen Ql (U) Normal mg/dl Normal [facility] B1WBon 01-14-2023 Vitamin B1 (TDP), Whole Blood 148.2 nmol/L Normal 84.3-213.3 [facility] ([place]) Comment on above: Result Comment: This assay measures the concentration of thiamine diphosphate (TDP), the primary active form of vitamin B1. Approximately 90 percent of vitamin B1 present in whole blood is TDP. Thiamine and thiamine monophosphate, which comprise the remaining 10 percent, are not measured. This test was developed and its performance characteristics determined by [facility] Pathology and Laboratory [facility] [place] [facility]). It has not been cleared or approved by the FDA. [facility] is regulated under CLIA as qualified to perform high-complexity testing. This test is used for clinical purposes. It should not be regarded as investigational or for research. Performed By: [facility] [address] [place] [address] Manager Power: Waqar Weldon III, M.D. CLIA#: [id number] Performed By: #### L IPID, B1WB, GFR, A1C, MG, TSH, FT4, CBC, DIFF, MORPH, VIDH, CMP #### [address] [address] #### FOL, B12 #### [address] [address] Performed By: #### U A #### [address] [address] .GFRon 01-11-2023 GFR Non- 67 ml/min/1.73sqm Normal [facility] ([place]) Comment on above: Result Comment: GFR Population mean for , Non- Americans Ages 20-29 = 116 mL/min/1.73 sq.m. Ages 30-39 = 107 mL/min/1.73 sq.m. Ages 40-49 = 99 mL/min/1.73 sq.m. Ages 50-59 = 93 mL/min/1.73 sq.m. Ages 60-69 = 85 mL/min/1.73 sq.m. Ages 70+ = 75 mL/min/1.73 sq.m. Chronic Kidney Disease: Less than 60 mL/min/1.73 square meters End Stage Renal Disease: Less than 15 mL/min/1.73 square meters Performed By: #### L IPID, B1WB, GFR, A1C, MG, TSH, FT4, CBC, DIFF, MORPH, VIDH, CMP #### [address] [address] #### FOL, B12 #### [place] [address] Performed By: #### U A #### [address] [address] GFR 82 ml/min/1.73sqm Normal [facility] ([place]) Comment on above: Result Comment: GFR Population mean for , Non- Americans Ages 20-29 = 116 mL/min/1.73 sq.m. Ages 30-39 = 107 mL/min/1.73 sq.m. Ages 40-49 = 99 mL/min/1.73 sq.m. Ages 50-59 = 93 mL/min/1.73 sq.m. Ages 60-69 = 85 mL/min/1.73 sq.m. Ages 70+ = 75 mL/min/1.73 sq.m. Chronic Kidney Disease: Less than 60 mL/min/1.73 square meters End Stage Renal Disease: Less than 15 mL/min/1.73 square meters Performed By: #### L IPID, B1WB, GFR, A1C, MG, TSH, FT4, CBC, DIFF, MORPH, VIDH, CMP #### [address] [address] #### FOL, B12 #### [address] [address] Performed By: #### U A #### [address] [address] .Manual Diffon 01-11-2023 Basophil %, Manual 0.0 % Normal 0.0-2.5 [facility] ([place]) Comment on above: Performed By: #### L IPID, B1WB, GFR, A1C, MG, TSH, FT4, CBC, DIFF, MORPH, VIDH, CMP #### [place] [address] #### JUAN MANUEL, B12 #### [place] [address] Performed By: #### U A #### [place] [address] Basophil, Abs Manual 0.0 10 3/mcL Normal 0.0-0.2 [facility] ([place]) Comment on above: Performed By: #### L IPID, B1WB, GFR, A1C, MG, TSH, FT4, CBC, DIFF, MORPH, VIDH, CMP #### [place] [address] #### JUAN MANUEL, B12 #### [place] [address] Performed By: #### U A #### [place] [address] Eosinophil %, Manual 10.0 % High 0.0-7.0 [facility] ([place]) Comment on above: Performed By: #### L IPID, B1WB, GFR, A1C, MG, TSH, FT4, CBC, DIFF, MORPH, VIDH, CMP #### [place] [address] #### FOL, B12 #### [place] [address] Performed By: #### U A #### [place] [address] Eosinophil, Abs Manual 0.9 10 3/mcL High 0.0-0.4 [facility] ([place]) Comment on above: Performed By: #### L IPID, B1WB, GFR, A1C, MG, TSH, FT4, CBC, DIFF, MORPH, VIDH, CMP #### [place] [address] #### FOL, B12 #### [place] [address] Performed By: #### U A #### [address] [address] Lymphocyte %, Manual 50.0 % Normal 10.0-50.0 [facility] ([place]) Comment on above: Performed By: #### L IPID, B1WB, GFR, A1C, MG, TSH, FT4, CBC, DIFF, MORPH, VIDH, CMP #### [place] [address] #### FOL, B12 #### [place] [address] Performed By: #### U A #### [place] [address] Lymphocyte, Abs Manual 4.5 10 3/mcL High 0.8-3.9 [facility] ([place]) Comment on above: Performed By: #### L IPID, B1WB, GFR, A1C, MG, TSH, FT4, CBC, DIFF, MORPH, VIDH, CMP #### [place] [address] #### FOL, B12 #### [place] [address] Performed By: #### U A #### [place] [id number] Monocyte %, Manual 3.0 % Normal 1.7-13.0 [facility] ([place]) Comment on above: Performed By: #### L IPID, B1WB, GFR, A1C, MG, TSH, FT4, CBC, DIFF, MORPH, VIDH, CMP #### [address] [address] #### FOL, B12 #### [place] [address] Performed By: #### U A #### [place] [address] Monocyte, Abs Manual 0.3 10 3/mcL Normal 0.2-1.0 [facility] ([place]) Comment on above: Performed By: #### L IPID, B1WB, GFR, A1C, MG, TSH, FT4, CBC, DIFF, MORPH, VIDH, CMP #### [address] [address] #### FOL, B12 #### [address] [address] Performed By: #### U A #### [address] [address] Neutrophil %, Manual 37.0 % Normal 37.0-80.0 [facility] ([place]) Comment on above: Performed By: #### L IPID, B1WB, GFR, A1C, MG, TSH, FT4, CBC, DIFF, MORPH, VIDH, CMP #### [address] [address] #### FOL, B12 #### [place] [address] Performed By: #### U A #### [place] [address] Neutrophil, Abs Manual 3.3 10 3/mcL Normal 2.9-6.2 [facility] ([place]) Comment on above: Performed By: #### L IPID, B1WB, GFR, A1C, MG, TSH, FT4, CBC, DIFF, MORPH, VIDH, CMP #### [address] [address] #### FOL, B12 #### [place] [address] Performed By: #### U A #### [address] [address] Nucleated RBC 0.0 /100 WBC Normal [facility] ([place]) Comment on above: Performed By: #### L IPID, B1WB, GFR, A1C, MG, TSH, FT4, CBC, DIFF, MORPH, VIDH, CMP #### [address] [address] #### FOL, B12 #### [place] [address] Performed By: #### U A #### [address] [address] .Morphon 01-11-2023 RBC morphology finding Nom (Bld) Normal Normal [facility] ([place]) Comment on above: Performed By: #### L IPID, B1WB, GFR, A1C, MG, TSH, FT4, CBC, DIFF, MORPH, VIDH, CMP #### [place] [address] #### FOL, B12 #### [place] [address] Performed By: #### U A #### [place] [address] Platelet Estimate Normal Normal [facility] ([place]) Comment on above: Performed By: #### L IPID, B1WB, GFR, A1C, MG, TSH, FT4, CBC, DIFF, MORPH, VIDH, CMP #### [place] [address] #### FOL, B12 #### [place] [address] Performed By: #### U A #### [place] [address] A1Con 01-11-2023 HbA1c (Bld) [Mass fraction] 5.6 % Normal 4.3-6.4 [facility] ([place]) Comment on above: Performed By: #### L IPID, B1WB, GFR, A1C, MG, TSH, FT4, CBC, DIFF, MORPH, VIDH, CMP #### [place] [address] #### FOL, B12 #### [place] [address] Performed By: #### A LC, DRUGS #### [place] [address] B12on 01-11-2023 Cobalamin (Vitamin B12) [Mass/Vol] 465 pg/mL Normal 211-911 [facility] ([place]) Comment on above: Performed By: #### L IPID, B1WB, GFR, A1C, MG, TSH, FT4, CBC, DIFF, MORPH, VIDH, CMP #### [place] [address] #### FOL, B12 #### [place] [address] Performed By: #### U A #### [address] [address] CBCon 01-11-2023 Erythrocyte distribution width (RBC) [Ratio] 13.0 % Normal 11.5-14.5 [facility] ([place]) Comment on above: Performed By: #### L IPID, B1WB, GFR, A1C, MG, TSH, FT4, CBC, DIFF, MORPH, VIDH, CMP #### [place] [address] #### FOL, B12 #### [place] [address] Performed By: #### U A #### [place] [address] Hematocrit (Bld) [Volume fraction] 40.4 % Low 42.0-52.0 [facility] ([place]) Comment on above: Performed By: #### L IPID, B1WB, GFR, A1C, MG, TSH, FT4, CBC, DIFF, MORPH, VIDH, CMP #### [place] [address] #### FOL, B12 #### [place] [address] Performed By: #### U A #### [place] [address] Hgb 13.5 G/dL Low 14.0-18.0 [facility] ([place]) Comment on above: Performed By: #### L IPID, B1WB, GFR, A1C, MG, TSH, FT4, CBC, DIFF, MORPH, VIDH, CMP #### [place] [address] #### FOL, B12 #### [place] [address] Performed By: #### U A #### [address] [address] MCH (RBC) [Entitic mass] 33.8 pg High 27.0-31.2 [facility] ([place]) Comment on above: Performed By: #### L IPID, B1WB, GFR, A1C, MG, TSH, FT4, CBC, DIFF, MORPH, VIDH, CMP #### [place] [address] #### FOL, B12 #### [place] [address] Performed By: #### U A #### [place] [address] MCHC 33.6 G/dL Normal 31.8-35.4 [facility] ([place]) Comment on above: Performed By: #### L IPID, B1WB, GFR, A1C, MG, TSH, FT4, CBC, DIFF, MORPH, VIDH, CMP #### [place] [address] #### FOL, B12 #### [place] [address] Performed By: #### U A #### [address] [address] MCV (RBC) [Entitic vol] 100.8 fL High 80.0-94.0 [facility] ([place]) Comment on above: Performed By: #### L IPID, B1WB, GFR, A1C, MG, TSH, FT4, CBC, DIFF, MORPH, VIDH, CMP #### [address] [address] #### FOL, B12 #### [place] [address] Performed By: #### U A #### [place] [id number] Platelet 280 10 3/mcL Normal 130-400 [facility] ([place]) Comment on above: Performed By: #### L IPID, B1WB, GFR, A1C, MG, TSH, FT4, CBC, DIFF, MORPH, VIDH, CMP #### [place] [address] #### FOL, B12 #### [place] [address] Performed By: #### U A #### [place] [address] Platelet mean volume (Bld) [Entitic vol] 8.3 fL Normal 7.4-10.4 [facility] ([place]) Comment on above: Performed By: #### L IPID, B1WB, GFR, A1C, MG, TSH, FT4, CBC, DIFF, MORPH, VIDH, CMP #### [place] [address] #### FOL, B12 #### [place] [address] Performed By: #### U A #### [place] [address] RBC 4.00 10 6/mcL Low 4.04-6.13 [facility] ([place]) Comment on above: Performed By: #### L IPID, B1WB, GFR, A1C, MG, TSH, FT4, CBC, DIFF, MORPH, VIDH, CMP #### [place] [address] #### FOL, B12 #### [place] [address] Performed By: #### U A #### [place] [address] WBC 9.0 10 3/mcL Normal 4.6-10.8 [facility] ([place]) Comment on above: Performed By: #### L IPID, B1WB, GFR, A1C, MG, TSH, FT4, CBC, DIFF, MORPH, VIDH, CMP #### [place] [address] #### FOL, B12 #### [place] [address] Performed By: #### U A #### [address] [address] [facility] 01-11-2023 Albumin Level 3.8 G/dL Normal 3.4-4.8 [facility] ([place]) Comment on above: Performed By: #### L IPID, B1WB, GFR, A1C, MG, TSH, FT4, CBC, DIFF, MORPH, VIDH, CMP #### [place] [address] #### FOL, B12 #### [place] [address] Performed By: #### U A #### [place] [id number] Albumin/Globulin [Mass ratio] 1.3 {ratio} Normal 1.1-2.5 [facility] ([place]) Comment on above: Performed By: #### L IPID, B1WB, GFR, A1C, MG, TSH, FT4, CBC, DIFF, MORPH, VIDH, CMP #### [address] [address] #### FOL, B12 #### [place] [address] Performed By: #### U A #### [address] [address] ALP [Catalytic activity/Vol] 84 U/L Normal 40-135 [facility] ([place]) Comment on above: Performed By: #### L IPID, B1WB, GFR, A1C, MG, TSH, FT4, CBC, DIFF, MORPH, VIDH, CMP #### [address] [address] #### FOL, B12 #### [place] [address] Performed By: #### U A #### [address] [address] ALT [Catalytic activity/Vol] 43 U/L Normal 16-63 [facility] ([place]) Comment on above: Performed By: #### L IPID, B1WB, GFR, A1C, MG, TSH, FT4, CBC, DIFF, MORPH, VIDH, CMP #### [address] [address] #### FOL, B12 #### [address] [address] Performed By: #### U A #### [place] [address] AST [Catalytic activity/Vol] 24 U/L Normal 10-40 [facility] ([place]) Comment on above: Performed By: #### L IPID, B1WB, GFR, A1C, MG, TSH, FT4, CBC, DIFF, MORPH, VIDH, CMP #### [place] [address] #### FOL, B12 #### [place] [address] Performed By: #### U A #### [place] [id number] Bili Total 0.5 mg/dL Normal 0.2-1.0 [facility] ([place]) Comment on above: Result Comment: Use of this assay is not recommended for patients undergoing treatment with eltrombopag due to the potential for falsely elevated results. Performed By: #### L IPID, B1WB, GFR, A1C, MG, TSH, FT4, CBC, DIFF, MORPH, VIDH, CMP #### [place] [address] #### FOL, B12 #### [place] [address] Performed By: #### U A #### [place] [address] BUN/Creatinine Ratio 14 ratio Normal 7-27 [facility] ([place]) Comment on above: Performed By: #### L IPID, B1WB, GFR, A1C, MG, TSH, FT4, CBC, DIFF, MORPH, VIDH, CMP #### [place] [address] #### FOL, B12 #### [address] [address] Performed By: #### U A #### [address] [address] Calcium [Mass/Vol] 8.7 mg/dL Normal 8.4-10.2 [facility] ([place]) Comment on above: Performed By: #### L IPID, B1WB, GFR, A1C, MG, TSH, FT4, CBC, DIFF, MORPH, VIDH, CMP #### [address] [address] #### FOL, B12 #### [place] [address] Performed By: #### U A #### [address] [address] Chloride [Moles/Vol] 100 mmol/L Normal 98-107 [facility] ([place]) Comment on above: Performed By: #### L IPID, B1WB, GFR, A1C, MG, TSH, FT4, CBC, DIFF, MORPH, VIDH, CMP #### [address] [address] #### FOL, B12 #### [place] [address] Performed By: #### U A #### [address] [address] CO2 [Moles/Vol] 33 mmol/L High 23-31 [facility] ([place]) Comment on above: Performed By: #### L IPID, B1WB, GFR, A1C, MG, TSH, FT4, CBC, DIFF, MORPH, VIDH, CMP #### [address] [address] #### FOL, B12 #### [place] [address] Performed By: #### U A #### [place] [id number] Creatinine [Mass/Vol] 1.09 mg/dL Normal 0.70-1.30 [facility] ([place]) Comment on above: Performed By: #### L IPID, B1WB, GFR, A1C, MG, TSH, FT4, CBC, DIFF, MORPH, VIDH, CMP #### [address] [address] #### FOL, B12 #### [place] [address] Performed By: #### U A #### [place] [address] Electrolyte Balance 3.0 mEq/L Low 4.0-15.0 [facility] ([place]) Comment on above: Performed By: #### L IPID, B1WB, GFR, A1C, MG, TSH, FT4, CBC, DIFF, MORPH, VIDH, CMP #### [place] [address] #### FOL, B12 #### [place] [address] Performed By: #### U A #### [place] [address] Globulin 3.0 G/dL Normal [facility] ([place]) Comment on above: Performed By: #### L IPID, B1WB, GFR, A1C, MG, TSH, FT4, CBC, DIFF, MORPH, VIDH, CMP #### [place] [address] #### FOL, B12 #### [place] [address] Performed By: #### U A #### [address] [address] Glucose [Mass/Vol] 94 mg/dL Normal 80-115 [facility] ([place]) Comment on above: Performed By: #### L IPID, B1WB, GFR, A1C, MG, TSH, FT4, CBC, DIFF, MORPH, VIDH, CMP #### [place] [address] #### FOL, B12 #### [address] [address] Performed By: #### U A #### [address] [address] Potassium [Moles/Vol] 4.5 mmol/L Normal 3.5-5.1 [facility] ([place]) Comment on above: Performed By: #### L IPID, B1WB, GFR, A1C, MG, TSH, FT4, CBC, DIFF, MORPH, VIDH, CMP #### [address] [address] #### FOL, B12 #### [place] [address] Performed By: #### U A #### [address] [address] Sodium [Moles/Vol] 136 mmol/L Normal 136-145 [facility] ([place]) Comment on above: Performed By: #### L IPID, B1WB, GFR, A1C, MG, TSH, FT4, CBC, DIFF, MORPH, VIDH, CMP #### [address] [address] #### FOL, B12 #### [place] [address] Performed By: #### U A #### [address] [address] Total Protein 6.8 G/dL Normal 6.4-8.2 [facility] ([place]) Comment on above: Performed By: #### L IPID, B1WB, GFR, A1C, MG, TSH, FT4, CBC, DIFF, MORPH, VIDH, CMP #### [address] [address] #### FOL, B12 #### [place] [address] Performed By: #### U A #### [address] [address] Urea nitrogen [Mass/Vol] 15 mg/dL Normal 7-18 [facility] ([place]) Comment on above: Performed By: #### L IPID, B1WB, GFR, A1C, MG, TSH, FT4, CBC, DIFF, MORPH, VIDH, CMP #### [place] [address] #### FOL, B12 #### [place] [address] Performed By: #### U A #### [place] [address] FOLon 01-11-2023 Folate >48.00 High 5.38-24.00 [facility] ([place]) Comment on above: Performed By: #### L IPID, B1WB, GFR, A1C, MG, TSH, FT4, CBC, DIFF, MORPH, VIDH, CMP #### [place] [address] #### FOL, B12 #### [place] [address] Performed By: #### U A #### [place] [address] FT4on 01-11-2023 Free T4 [Mass/Vol] 1.02 ng/dL Normal 0.76-1.46 [facility] ([place]) Comment on above: Performed By: #### L IPID, B1WB, GFR, A1C, MG, TSH, FT4, CBC, DIFF, MORPH, VIDH, CMP #### [place] [address] #### FOL, B12 #### [place] [address] Performed By: #### A LC, DRUGS #### [place] [address] LABORATORYOrdered By: SYSTEM SYSTEM on 01-11-2023 25-hydroxyvitamin D3 [Mass/Vol] 46.6 ng/mL Invalid Interpretation Code AO ADM SS Comment on above: Interpretive Data: I nterpretive Values Based on Total 25(OH) Vitamin D: Deficient <20 ng/mL Insufficient 20 - <30 ng/mL Sufficient 30-100 ng/mL Albumin BCP dye [Mass/Vol] 3.8 G/dL Invalid Interpretation Code 3.4 - 4.8 G/dL AO ADM SS Albumin/Globulin [Mass ratio] 1.3 {ratio} Invalid Interpretation Code 1.1 - 2.5 ratio AO ADM SS ALP [Catalytic activity/Vol] 84 U/L Invalid Interpretation Code 40 - 135 U/L AO ADM SS ALT With P-5'-P [Catalytic activity/Vol] 43 U/L Invalid Interpretation Code 16 - 63 U/L AO ADM SS AST With P-5'-P [Catalytic activity/Vol] 24 U/L Invalid Interpretation Code 10 - 40 U/L AO ADM SS Basophil %, Manual 0.0 1 Invalid Interpretation Code 0.0 - 2.5 % AO Workflow SS Basophil, Abs Manual 0.0 103/mcL Invalid Interpretation Code 0.0 - 0.2 10^3/mcL AO Workflow SS Bilirubin [Mass/Vol] 0.5 mg/dL Invalid Interpretation Code 0.2 - 1.0 mg/dL AO ADM SS Comment on above: Interpretive Data: U se of this assay is not recommended for patients undergoing treatment with eltrombopag due to the potential for falsely elevated results. Calcium [Mass/Vol] 8.7 mg/dL Invalid Interpretation Code 8.4 - 10.2 mg/dL AO ADM SS Chloride [Moles/Vol] 100 mmol/L Invalid Interpretation Code 98 - 107 mmol/L AO ADM SS CO2 [Moles/Vol] 33 mmol/L Invalid Interpretation Code 23 - 31 mmol/L AO ADM SS Cobalamin (Vitamin B12) [Mass/Vol] 465 pg/mL Invalid Interpretation Code 211 - 911 pg/mL AH ADM SS Creatinine [Mass/Vol] 1.09 mg/dL Invalid Interpretation Code 0.70 - 1.30 mg/dL AO ADM SS Electrolyte Balance 3.0 mEq/L Invalid Interpretation Code 4.0 - 15.0 mEq/L AO ADM SS Eosinophil %, Manual 10.0 1 Invalid Interpretation Code 0.0 - 7.0 % AO Workflow SS Eosinophils (Bld) [#/Vol] 0.9 103/mcL Invalid Interpretation Code 0.0 - 0.4 10^3/mcL AO Workflow SS Erythrocyte distribution width (RBC) [Ratio] 13.0 % Invalid Interpretation Code 11.5 - 14.5 % AO Workflow SS Folate [Mass/Vol] ng/mL Invalid Interpretation Code 5.38 - 24.00 ng/mL AH ADM SS Free T4 [Mass/Vol] 1.02 ng/dL Invalid Interpretation Code 0.76 - 1.46 ng/dL AO ADM SS GFR/1.73 sq M.predicted among blacks MDRD (S/P/Bld) [Vol rate/Area] 82 ml/min/1.73sqm Invalid Interpretation Code AO Chemistry S Comment on above: Interpretive Data: GFR Population mean for , Non- Americans Ages 20-29 = 116 mL/min/1.73 sq.m. Ages 30-39 = 107 mL/min/1.73 sq.m. Ages 40-49 = 99 mL/min/1.73 sq.m. Ages 50-59 = 93 mL/min/1.73 sq.m. Ages 60-69 = 85 mL/min/1.73 sq.m. Ages 70+ = 75 mL/min/1.73 sq.m. Chronic Kidney Disease: Less than 60 mL/min/1.73 square meters End Stage Renal Disease: Less than 15 mL/min/1.73 square meters GFR/1.73 sq M.predicted among non-blacks MDRD (S/P/Bld) [Vol rate/Area] 67 ml/min/1.73sqm Invalid Interpretation Code AO Chemistry S Comment on above: Interpretive Data: GFR Population mean for , Non- Americans Ages 20-29 = 116 mL/min/1.73 sq.m. Ages 30-39 = 107 mL/min/1.73 sq.m. Ages 40-49 = 99 mL/min/1.73 sq.m. Ages 50-59 = 93 mL/min/1.73 sq.m. Ages 60-69 = 85 mL/min/1.73 sq.m. Ages 70+ = 75 mL/min/1.73 sq.m. Chronic Kidney Disease: Less than 60 mL/min/1.73 square meters End Stage Renal Disease: Less than 15 mL/min/1.73 square meters Globulin 3.0 G/dL Invalid Interpretation Code AO ADM SS Glucose [Mass/Vol] 94 mg/dL Invalid Interpretation Code 80 - 115 mg/dL AO ADM SS HbA1c (Bld) [Mass fraction] 5.6 % Invalid Interpretation Code 4.3 - 6.4 % AO ADM SS Hematocrit (Bld) [Volume fraction] 40.4 % Invalid Interpretation Code 42.0 - 52.0 % AO Workflow SS Hemoglobin (Bld) [Mass/Vol] 13.5 G/dL Invalid Interpretation Code 14.0 - 18.0 G/dL AO Workflow SS Lymphocyte %, Manual 50.0 1 Invalid Interpretation Code 10.0 - 50.0 % AO Workflow SS Lymphocyte, Abs Manual 4.5 103/mcL Invalid Interpretation Code 0.8 - 3.9 10^3/mcL AO Workflow SS Magnesium [Mass/Vol] 2.0 mg/dL Invalid Interpretation Code 1.8 - 2.4 mg/dL AO ADM SS MCH (RBC) [Entitic mass] 33.8 pg Invalid Interpretation Code 27.0 - 31.2 pg AO Workflow SS MCHC 33.6 G/dL Invalid Interpretation Code 31.8 - 35.4 G/dL AO Workflow SS MCV (RBC) [Entitic vol] 100.8 fL Invalid Interpretation Code 80.0 - 94.0 fL AO Workflow SS Monocyte %, Manual 3.0 1 Invalid Interpretation Code 1.7 - 13.0 % AO Workflow SS Monocyte, Abs Manual 0.3 103/mcL Invalid Interpretation Code 0.2 - 1.0 10^3/mcL AO Workflow SS Neutrophil %, Manual 37.0 1 Invalid Interpretation Code 37.0 - 80.0 % AO Workflow SS Neutrophil, Abs Manual 3.3 103/mcL Invalid Interpretation Code 2.9 - 6.2 10^3/mcL AO Workflow SS Nucleated RBC 0.0 /100 WBC Invalid Interpretation Code AO Workflow SS Platelet Estimate Normal *NA* (01/11/23 10:36 AM) Invalid Interpretation Code AO Workflow SS Platelet mean volume (Bld) [Entitic vol] 8.3 fL Invalid Interpretation Code 7.4 - 10.4 fL AO Workflow SS Platelets (Bld) [#/Vol] 280 103/mcL Invalid Interpretation Code 130 - 400 10^3/mcL AO Workflow SS Potassium [Moles/Vol] 4.5 mmol/L Invalid Interpretation Code 3.5 - 5.1 mmol/L AO ADM SS Protein [Mass/Vol] 6.8 G/dL Invalid Interpretation Code 6.4 - 8.2 G/dL AO ADM SS RBC (Bld) [#/Vol] 4.00 106/mcL Invalid Interpretation Code 4.04 - 6.13 10^6/mcL AO Workflow SS Sodium [Moles/Vol] 136 mmol/L Invalid Interpretation Code 136 - 145 mmol/L AO ADM SS TSH Qn 2.37 m[IU]/L Invalid Interpretation Code 0.36 - 3.74 mcIU/mL AO ADM SS Urea nitrogen [Mass/Vol] 15 mg/dL Invalid Interpretation Code 7 - 18 mg/dL AO ADM SS Urea nitrogen/Creatinine [Mass ratio] 14 ratio Invalid Interpretation Code 7 - 27 ratio AO ADM SS WBC (Bld) [#/Vol] 9.0 103/mcL Invalid Interpretation Code 4.6 - 10.8 10^3/mcL AO Workflow SS LABORATORYOrdered By: Ruby Rosario on 01-11-2023 Cholesterol [Mass/Vol] 132 mg/dL Invalid Interpretation Code 0 - 200 mg/dL AO ADM SS Comment on above: Interpretive Data: C holesterol Reference Interval: Less than 200 Desirable 200-239 Borderline high risk 240 and above High risk Cholesterol in HDL [Mass/Vol] 65 mg/dL Invalid Interpretation Code 40 - 60 mg/dL AO ADM SS Cholesterol in LDL [Mass/Vol] 50 mg/dL Invalid Interpretation Code 0 - 130 mg/dL AO ADM SS Triglyceride [Mass/Vol] 85 mg/dL Invalid Interpretation Code 0 - 150 mg/dL AO ADM SS Comment on above: Interpretive Data: T riglyceride Reference Interval: Less than 150 Normal 150-199 Borderline high risk 200-499 High risk 500 or higher Very high risk LABORATORYOrdered By: Mariam Perez on 01-11-2023 RBC morphology finding Nom (Bld) Normal (01/11/23 10:36 AM) Invalid Interpretation Code AO Hematology S LABORATORYOrdered By: FIONA GUERRERO CONTRIBUTOR_SYSTEM on 01-11-2023 Vitamin B1 (TDP), Whole Blood 148.2 nmol/L Invalid Interpretation Code 84.3-213.3 AO Sendouts SS Comment on above: Result Comment: This assay measures the concentration of thiamine diphosphate (TDP), the primary active form of vitamin B1. Approximately 90 percent of vitamin B1 present in whole blood is TDP. Thiamine and thiamine monophosphate, which comprise the remaining 10 percent, are not measured. This test was developed and its performance characteristics determined by [facility] [place] ([facility] It has not been cleared or approved by the FDA. [facility] is regulated under CLIA as qualified to perform high-complexity testing. This test is used for clinical purposes. It should not be regarded as investigational or for research. Performed By: [facility] [address] [place] [address] Manager Power: Waqar Weldon III, M.D. IA#: [id number] LIPIDon 01-11-2023 Cholesterol [Mass/Vol] 132 mg/dL Normal 0-200 [facility] ([place]) Comment on above: Result Comment: Chol esterol Reference Interval: Less than 200 Desirable 200-239 Borderline high risk 240 and above High risk Performed By: #### L IPID, B1WB, GFR, A1C, MG, TSH, FT4, CBC, DIFF, MORPH, VIDH, CMP #### [address] [address] #### FOL, B12 #### [place] [address] Performed By: #### U A #### [address] [address] Cholesterol in HDL [Mass/Vol] 65 mg/dL High 40-60 [facility] ([place]) Comment on above: Performed By: #### L IPID, B1WB, GFR, A1C, MG, TSH, FT4, CBC, DIFF, MORPH, VIDH, CMP #### [address] [address] #### FOL, B12 #### [address] [address] Performed By: #### U A #### [address] [address] Cholesterol in LDL [Mass/Vol] 50 mg/dL Normal 0-130 [facility] ([place]) Comment on above: Performed By: #### L IPID, B1WB, GFR, A1C, MG, TSH, FT4, CBC, DIFF, MORPH, VIDH, CMP #### [address] [address] #### FOL, B12 #### [place] [address] Performed By: #### U A #### [address] [address] Triglyceride [Mass/Vol] 85 mg/dL Normal 0-150 [facility] ([place]) Comment on above: Result Comment: Trig lyceride Reference Interval: Less than 150 Normal 150-199 Borderline high risk 200-499 High risk 500 or higher Very high risk Performed By: #### L IPID, B1WB, GFR, A1C, MG, TSH, FT4, CBC, DIFF, MORPH, VIDH, CMP #### [address] [address] #### FOL, B12 #### [place] [address] Performed By: #### U A #### [address] [address] MGon 01-11-2023 Magnesium [Mass/Vol] 2.0 mg/dL Normal 1.8-2.4 [facility] ([place]) Comment on above: Performed By: #### L IPID, B1WB, GFR, A1C, MG, TSH, FT4, CBC, DIFF, MORPH, VIDH, CMP #### [address] [address] #### FOL, B12 #### [place] [address] Performed By: #### A LC, DRUGS #### [place] [address] TSHon 01-11-2023 TSH Qn 2.37 m[IU]/L Normal 0.36-3.74 [facility] ([place]) Comment on above: Performed By: #### L IPID, B1WB, GFR, A1C, MG, TSH, FT4, CBC, DIFF, MORPH, VIDH, CMP #### [place] [address] #### FOL, B12 #### [place] [address] Performed By: #### A LC, DRUGS #### [place] [address] VIDHon 01-11-2023 Vit. D 25-Hydroxy 46.6 ng/mL Normal [facility] ([place]) Comment on above: Result Comment: Inte rpretive Values Based on Total 25(OH) Vitamin D: Deficient <20 ng/mL Insufficient 20 - <30 ng/mL Sufficient 30-100 ng/mL Performed By: #### L IPID, B1WB, GFR, A1C, MG, TSH, FT4, CBC, DIFF, MORPH, VIDH, CMP #### [address] [address] #### FOL, B12 #### [place] [address] Performed By: #### U A #### [address] [address] Absolute lymphocyte countOrd ered By: Radha Quintero on 12-22-2022 Lymphocytes Auto (Unsp spec) [#/Vol] 4.70 10*3/uL 0.83-4.51 [facility] Basophil percentageOrdered B y: Radha Quintero on 12-22-2022 Basophil percentage 144 mg/dL 74-106 [facility] Basophil percentage 6.3 g/dL 6.4-8.2 [facility] Basophil percentage 0.20 mg/dL 0.20-1.00 [facility] Basophil percentage 137 mmol/L 136-145 [facility] Basophil percentage 3.9 mmol/L 3.5-5.1 [facility] Basophil percentage 106 mmol/L 98-107 [facility] Basophils (Bld) [#/Vol] 15.4 10*3/uL 4.4-11.0 [facility] Basophils (Bld) [#/Vol] 8.2 10*3/uL 2.0-7.7 [facility] Basophils/100 WBC (Bld) 53.0 % 47-70 [facility] [facility] Bas[facility]/100 WBC (Bld) 7.3 % 0-5 [facility] Basophils/100 WBC (Bld) 0.3 % 0-1 [facility] Basophil percentageOrdered B y: Zaki Morin on 12-22-2022 Basophil percentage 110 mg/dL <200 [facility] Basophil percentage 156 mg/dL <199 [facility] Basophil percentageOrdered B y: Alfonso Jain on 12-22-2022 Basophil percentage 5.0 ug/mL 10.0-40.0 [facility] Basophil percentage 28.0 umol/L 11-32 [facility] Blood erythrocytes count (nu mber/volume)Ordered By: Radha Quintero on 12-22-2022 RBC (Bld) [#/Vol] 4.03 10*6/uL 4.6-6.2 [facility] Blood hemoglobin measurement (mass/volume)Ordered By: Radha Quintero on 12-22-2022 Hemoglobin (Bld) [Mass/Vol] 13.5 g/dL 13.0-16.5 [facility] Blood lymphocytes/100 leukoc ytesOrdered By: Radha Quintero on 12-22-2022 Lymphocytes/100 WBC (Bld) 30.6 % 19-41 [facility] Blood manual differential co mment interpretation (narrative result)Ordered By: Radha Quintero on 12-22-2022 Manual differential comment Bari (Bld) [Interp] See comment [facility] Blood monocytes/100 leukocyt esOrdered By: Radha Quintero on 12-22-2022 Monocytes/100 WBC (Bld) 8.3 % 0-10 [facility] Blood platelet mean volumeOr dered By: Radha Quintero on 12-22-2022 Platelet mean volume (Bld) [Entitic vol] 10.3 fL 6.2-12.0 [facility] Determination of erythrocyte mean corpuscular volume (MCV)Ordered By: Radha Quintero on 12-22-2022 MCV (RBC) [Entitic vol] 102.5 fL 80-94 [facility] Hematocrit Auto (Bld) [Volum e fraction]Ordered By: Radha Quintero on 12-22-2022 Hematocrit (Bld) [Volume fraction] 41.3 % 40-54 [facility] INR in Blood by Coagulation assayOrdered By: Alex Mejia on 12-22-2022 INR Coag (Bld) [Relative time] 1.0 [facility] [Mass/Vol]Or dered By: Radha Quintero on 12-22-2022 MCHC (RBC) [Mass/Vol] 32.7 g/dL 32-36 [facility] No Panel InformationOrdered By: Radha Quintero on 12-22-2022 33.5 pg 27.0-32.0 [facility] 12.9 % 11.6-14.6 [facility] 48.2 fl 35.1-43.9 [facility] 0.500 % 0.0-0.9 [facility] 0 % 0-5 [facility] 93 mL/min >60 [facility] 113 mL/min >60 [facility] 16.2 RATIO 10-20 [facility] 3.1 g/dL 2.2-4.2 [facility] 92 U/L 45-117 [facility] 40 U/L 16-61 [facility] 2.1 mg/dL 1.6-2.6 [facility] 27.0 mmol/L 21.0-32.0 [facility] 2.69 uIU/mL 0.358-3.74 [facility] 1.28 ng/mL 0.00-4.00 [facility] 46.4 ng/mL [facility] No Panel InformationOrdered By: Alex Mejia on 12-22-2022 13.0 SECONDS 11.7-14.9 [facility] 29.8 Seconds 24.1-36.2 [facility] Platelets bldOrdered By: Kamila Quintero on 12-22-2022 Platelets (Bld) [#/Vol] 264 10*3/uL 150-450 [facility] Serum or plasma albumin sadi urement (mass/volume)Ordered By: Radha Quintero on 12-22-2022 Albumin [Mass/Vol] 3.2 g/dL 3.2-5.0 [facility] Serum or plasma albumin/glob ulin mass ratioOrdered By: Radha Quintero on 12-22-2022 Albumin/Globulin [Mass ratio] 1.0 {ratio} 0.9-2.4 [facility] Serum or plasma calcium sadi urement (mass/volume)Ordered By: Radha Quintero on 12-22-2022 Calcium [Mass/Vol] 8.4 mg/dL 8.5-10.1 [facility] Serum or plasma cholesterol in HDL measurement (mass/volume)Ordered By: Zaki Morin on 12-22-2022 Cholesterol in HDL [Mass/Vol] 58 mg/dL >40 [facility] Serum or plasma cholesterol in VLDL measurement (mass/volume)Ordered By: Zaki Morin on 12-22-2022 Cholesterol in VLDL [Mass/Vol] 31 mg/dL 5-40 [facility] Serum or plasma creatinine m easurement (mass/volume)Ordered By: Radha Quintero on 12-22-2022 Creatinine [Mass/Vol] 0.86 mg/dL 0.70-1.30 [facility] Serum or plasma lamotrigine measurement (mass/volume)Ordered By: Alfonso Jain on 12-22-2022 lamoTRIgine [Mass/Vol] 3.5 ug/mL 2.0-20.0 [facility] Serum or plasma low density lipoprotein (LDL) cholesterol measurement (mass/volume)Ordered By: Zaki Morin on 12-22-2022 Cholesterol in LDL [Mass/Vol] 21 mg/dL 0-130 [facility] Serum or plasma phenobarbita l detectionOrdered By: Alfonso Jain on 12-22-2022 PHENobarbital Ql 4 ug/mL 15-40 [facility] Serum or plasma primidone me asurement (mass/volume)Ordered By: Alfonso Jain on 12-22-2022 Primidone [Mass/Vol] 8.4 ug/mL 5.0-12.0 [facility] Serum or plasma urea nitroge n measurement (mass/volume)Ordered By: Radha Quintero on 12-22-2022 Urea nitrogen [Mass/Vol] 14 mg/dL 7-18 [facility] Thin prep Papanicolaou smear with manual screeningOrdered By: Radha Quintero on 12-22-2022 Thin prep Papanicolaou smear with manual screening 21 U/L 15-37 [facility] Thin prep Papanicolaou smear with manual screening 4 5-15 [facility] Absolute lymphocyte countOrd ered By: Álvaro Hsu on 09-07-2023 Lymphocytes Auto (Unsp spec) [#/Vol] 5.24 10*3/uL 0.83-4.51 [facility] Basophil percentageOrdered B y: Álvaro Hsu on 12-09-2022 Basophil percentage 0 SEEN /hpf 0-5 [facility] Basophil percentage 89 mg/dL 74-106 [facility] Basophil percentage 6.9 g/dL 6.4-8.2 [facility] Basophil percentage 0.30 mg/dL 0.20-1.00 [facility] Basophil percentage 136 mmol/L 136-145 [facility] Basophil percentage 4.2 mmol/L 3.5-5.1 [facility] Basophil percentage 103 mmol/L 98-107 [facility] Basophils (Bld) [#/Vol] 12.9 10*3/uL 4.4-11.0 [facility] Basophils (Bld) [#/Vol] 5.9 10*3/uL 2.0-7.7 [facility] Basophils/100 WBC (Bld) 45.6 % 47-70 [facility] Basophils/100 WBC (Bld) 5.3 % 0-5 [facility] Basophils/100 WBC (Bld) 0.5 % 0-1 [facility] Bilirubin Test strip Ql (U)O rdered By: Álvaro Hsu on 12-09-2022 Bilirubin Ql (U) Negative Negative [facility] Blood erythrocytes count (nu mber/volume)Ordered By: Álvaro Hsu on 12-09-2022 RBC (Bld) [#/Vol] 4.02 10*6/uL 4.6-6.2 [facility] Blood hemoglobin measurement (mass/volume)Ordered By: Álvaro Hsu on 12-09-2022 Hemoglobin (Bld) [Mass/Vol] 13.7 g/dL 13.0-16.5 [facility] Blood lymphocytes/100 leukoc ytesOrdered By: Álvaro Hsu on 12-09-2022 Lymphocytes/100 WBC (Bld) 40.6 % 19-41 [facility] Blood manual differential co mment interpretation (narrative result)Ordered By: Álvaro Hsu on 12-09-2022 Manual differential comment Bari (Bld) [Interp] SCANNED [facility] Blood monocytes/100 leukocyt esOrdered By: Álvaro Hsu on 12-09-2022 Monocytes/100 WBC (Bld) 7.8 % 0-10 [facility] Blood platelet mean volumeOr dered By: Álvaro Hsu on 12-09-2022 Platelet mean volume (Bld) [Entitic vol] 9.8 fL 6.2-12.0 [facility] Determination of erythrocyte mean corpuscular volume (MCV)Ordered By: Álvaro Hsu on 12-09-2022 MCV (RBC) [Entitic vol] 100.5 fL 80-94 [facility] Hematocrit Auto (Bld) [Volum e fraction]Ordered By: Álvaro Hsu on 12-09-2022 Hematocrit (Bld) [Volume fraction] 40.4 % 40-54 [facility] Ketones Test strip Ql (U)Ord ered By: Álvaro Hsu on 12-09-2022 Ketones Ql (U) Negative Negative [facility] MCHC Auto (RBC) [Mass/Vol]Or dered By: Álvaro Hsu on 12-09-2022 MCHC (RBC) [Mass/Vol] 33.9 g/dL 32-36 [facility] Mucus LM Ql (Urine sed)Order ed By: Álvaro Hsu on 12-09-2022 Mucus Ql (Urine sed) 0 SEEN /hpf [facility] Nitrite Test strip Ql (U)Ord ered By: Álvaro Hsu on 12-09-2022 Nitrite Ql (U) Negative Negative [facility] No Panel InformationOrdered By: Álvaro Hsu on 12-09-2022 [facility] Negative < 50 ng/mL [facility] Positive < 200 ng/mL [facility] 34.1 pg 27.0-32.0 [facility] 12.4 % 11.6-14.6 [facility] 45.9 fl 35.1-43.9 [facility] 0.200 % 0.0-0.9 [facility] 0 % 0-5 [facility] 1+ [facility] 75 mL/min >60 [facility] 90 mL/min >60 [facility] 63.71 ml/min [facility] 13.3 RATIO 10-20 [facility] 3.2 g/dL 2.2-4.2 [facility] 93 U/L 45-117 [facility] 44 U/L 16-61 [facility] 30.0 mmol/L 21.0-32.0 [facility] < 3.0 mg/dL [facility] Platelets bldOrdered By: Álvaro Hsu on 12-09-2022 Platelets (Bld) [#/Vol] 240 10*3/uL 150-450 [facility] Protein Test strip Ql (U)Ord ered By: Álvaro Hus on 12-09-2022 Protein Ql (U) Negative Negative [facility] Serum or plasma albumin sadi urement (mass/volume)Ordered By: Álvaro Hsu on 12-09-2022 Albumin [Mass/Vol] 3.7 g/dL 3.2-5.0 [facility] Serum or plasma albumin/glob ulin mass ratioOrdered By: Álvaro Hsu on 12-09-2022 Albumin/Globulin [Mass ratio] 1.2 {ratio} 0.9-2.4 [facility] Serum or plasma calcium sadi urement (mass/volume)Ordered By: Álvaro Hsu on 12-09-2022 Calcium [Mass/Vol] 8.6 mg/dL 8.5-10.1 [facility] Serum or plasma creatinine m easurement (mass/volume)Ordered By: Álvaro Hsu on 12-09-2022 Creatinine [Mass/Vol] 1.05 mg/dL 0.70-1.30 [facility] Serum or plasma urea nitroge n measurement (mass/volume)Ordered By: Álvaro Hsu on 12-09-2022 Urea nitrogen [Mass/Vol] 14 mg/dL 7-18 [facility] Squamous epithelial cells de tection in urine sediment by light microscopyOrdered By: Álvaro Hsu on 12-09-2022 Epithelial cells.squamous LM Ql (Urine sed) 0 SEEN /hpf 0-5 [facility] Thin prep Papanicolaou smear with manual screeningOrdered By: Álvaro Hsu on 12-09-2022 Thin prep Papanicolaou smear with manual screening 21 U/L 15-37 [facility] Thin prep Papanicolaou smear with manual screening 3 5-15 [facility] Urine blood detectionOrdered By: Álvaro Hsu on 12-09-2022 RBC Ql (U) 150 /ul Negative [facility] RBC Ql (U) 0-5 SEEN /hpf 0-5 [facility] Urine clarityOrdered By: Álvaro Hsu on 12-09-2022 Clarity (U) Clear Clear [facility] Urine color determinationOrd ered By: Álvaro Hsu on 12-09-2022 Color (U) Yellow Yellow [facility] Urine glucose detectionOrder ed By: Álvaro Hsu on 12-09-2022 Glucose Ql (U) Normal mg/dl Normal [facility] Urine leukocyte esterase det ection by dipstickOrdered By: Álvaro Hsu on 12-09-2022 Leukocyte esterase Test strip Ql (U) Negative Negative [facility] Urine pHOrdered By: Álvaro azevedo on 12-09-2022 pH (U) 6.0 [pH] 5.0 - 8.0 [facility] Urine phencyclidine (PCP) de tectionOrdered By: Álvaro Hsu on 12-09-2022 Phencyclidine Ql (U) Negative < 25 ng/mL [facility] Urine sediment bacteria coun t by microscopy (number/high power field)Ordered By: Álvaro Hsu on 12-09-2022 Bacteria LM.HPF (Urine sed) [#/Area] 0 /[HPF] None Seen [facility] Urine specific gravity measu rementOrdered By: Álvaro Hsu on 12-09-2022 Specific gravity (U) [Rel density] 1.015 1.002-1.030 [facility] Urobilinogen Auto test strip Ql (U)Ordered By: Álvaro Hsu on 12-09-2022 Urobilinogen Ql (U) Normal mg/dl Normal [facility] Absolute lymphocyte countOrd ered By: Thai Nice on 11-10-2022 Lymphocytes Auto (Unsp spec) [#/Vol] 5.43 10*3/uL 0.83-4.51 [facility] Basophil percentageOrdered B y: Thai Nice on 11-10-2022 Basophil percentage 0-5 SEEN /hpf 0-5 [facility] Basophil percentage 88 mg/dL 74-106 [facility] Basophil percentage 6.7 g/dL 6.4-8.2 [facility] Basophil percentage 0.30 mg/dL 0.20-1.00 [facility] Basophil percentage 140 mmol/L 136-145 [facility] Basophil percentage 4.1 mmol/L 3.5-5.1 [facility] Basophil percentage 106 mmol/L 98-107 [facility] Basophils (Bld) [#/Vol] 12.0 10*3/uL 4.4-11.0 [facility] Basophils (Bld) [#/Vol] 4.1 10*3/uL 2.0-7.7 [facility] Basophils/100 WBC (Bld) 0.6 % 0-1 [facility] Basophils/100 WBC (Bld) 34.2 % 47-70 [facility] Basophils/100 WBC (Bld) 8.2 % 0-5 [facility] Bilirubin [Mass/Vol] 0.30 mg/dL 0.20-1.00 [facility] Comment on above: For patients on eltr ombopag therapy, use of Dimension [place] TBIL is not recommended. Chloride [Moles/Vol] 106 mmol/L 98-107 [facility] Eosinophils/100 WBC (Bld) 8.2 % 0-5 [facility] Glucose [Mass/Vol] 88 mg/dL 74-106 [facility] Neutrophils (Bld) [#/Vol] 4.1 10*3/uL 2.0-7.7 [facility] Neutrophils/100 WBC (Bld) 34.2 % 47-70 [facility] Potassium [Moles/Vol] 4.1 mmol/L 3.5-5.1 [facility] Protein [Mass/Vol] 6.7 g/dL 6.4-8.2 [facility] Sodium [Moles/Vol] 140 mmol/L 136-145 [facility] WBC (Bld) [#/Vol] 12.0 10*3/uL 4.4-11.0 [facility] Bilirubin Test strip Ql (U)O rdered By: Thai Nice on 11-10-2022 Bilirubin Ql (U) Negative Negative [facility] Blood erythrocytes count (nu mber/volume)Ordered By: Thai Nice on 08-09-2023 RBC (Bld) [#/Vol] 4.08 10*6/uL 4.6-6.2 [facility] Blood hemoglobin measurement (mass/volume)Ordered By: Thai Nice on 11-10-2022 Hemoglobin (Bld) [Mass/Vol] 13.7 g/dL 13.0-16.5 [facility] Blood lymphocytes/100 leukoc ytesOrdered By: Thai Nice on 11-10-2022 Lymphocytes/100 WBC (Bld) 45.3 % 19-41 [facility] Blood manual differential co mment interpretation (narrative result)Ordered By: Thai Nice on 11-10-2022 Manual differential comment Bari (Bld) [Interp] SCANNED [facility] Comment on above: LYMPHOCYTOSIS NOTED Blood monocytes/100 leukocyt esOrdered By: Thai Nice on 11-10-2022 Monocytes/100 WBC (Bld) 11.4 % 0-10 [facility] Blood platelet mean volumeOr dered By: Thai Nice on 11-10-2022 Platelet mean volume (Bld) [Entitic vol] 10.1 fL 6.2-12.0 [facility] Determination of erythrocyte mean corpuscular volume (MCV)Ordered By: Thai Nice on 11-10-2022 MCV (RBC) [Entitic vol] 100.5 fL 80-94 [facility] Hematocrit Auto (Bld) [Volum e fraction]Ordered By: Thai Nice on 11-10-2022 Hematocrit (Bld) [Volume fraction] 41.0 % 40-54 [facility] Ketones Test strip Ql (U)Ord ered By: Thai Nice on 11-10-2022 Ketones Ql (U) 5 mg/dl Negative [facility] Laboratory - Chemistry and C hemistry - challengeOrdered By: Thai Nice on 11-10-2022 ALP [Catalytic activity/Vol] 88 U/L 45-117 [facility] ALT [Catalytic activity/Vol] 28 U/L 16-61 [facility] CO2 [Moles/Vol] 27.0 mmol/L 21.0-32.0 [facility] Globulin (S) [Mass/Vol] 3.5 g/dL 2.2-4.2 [facility] Natriuretic peptide B (Bld) [Mass/Vol] 27.9 pg/mL 0-100 [facility] Urea nitrogen/Creatinine [Mass ratio] 20.3 mg/mg 10-20 [facility] Laboratory - Hematology and Cell countsOrdered By: Thai Nice on 11-10-2022 Erythrocyte distribution width (RBC) [Entitic vol] 46.7 fL 35.1-43.9 [facility] Erythrocyte distribution width (RBC) [Ratio] 12.6 % 11.6-14.6 [facility] Immature granulocytes/100 WBC (Bld) 0.300 % 0.0-0.9 [facility] Comment on above: IG% - Immature Granu locytes (promyelocytes, myelocytes and metamyelocytes) > 1% indicates that a LEFT SHIFT is Present. MCH (RBC) [Entitic mass] 33.6 pg 27.0-32.0 [facility] Nucleated RBC/100 WBC (Bld) [Ratio] 0 % 0-5 [facility] MCHC Auto (RBC) [Mass/Vol]Or dered By: Thai Nice on 11-10-2022 MCHC (RBC) [Mass/Vol] 33.4 g/dL 32-36 [facility] Mucus LM Ql (Urine sed)Order ed By: Thai Nice on 11-10-2022 Mucus Ql (Urine sed) 0 SEEN /hpf [facility] Nitrite Test strip Ql (U)Ord ered By: Thai Nice on 11-10-2022 Nitrite Ql (U) Negative Negative [facility] No Panel InformationOrdered By: Thai Nice on 11-10-2022 Troponin I High Sensitivity 5 pg/mL 3.0-78.0 [facility] Comment on above: Please Note: New Renay t Units and Gender Specific Reference Ranges. For more information see Policy Stat Procedure [place] High Sensitivity Troponin (TNIH) and attachments. 5 pg/mL 3.0-78.0 [facility] Estimated Creatinine Clearance Calc 50.41 ml/min [facility] Estimated GFR (MDRD) Amer 75 mL/min >60 [facility] Comment on above: GFR Calc Estimated GFR (MDRD) Non-Af Amer 62 mL/min >60 [facility] Comment on above: Non- GFR Calc 33.6 pg 27.0-32.0 [facility] 12.6 % 11.6-14.6 [facility] 46.7 fl 35.1-43.9 [facility] 0.300 % 0.0-0.9 [facility] 0 % 0-5 [facility] 62 mL/min >60 [facility] 75 mL/min >60 [facility] 50.41 ml/min [facility] 20.3 RATIO 10-20 [facility] 3.5 g/dL 2.2-4.2 [facility] 88 U/L 45-117 [facility] 28 U/L 16-61 [facility] 27.0 mmol/L 21.0-32.0 [facility] 27.9 pg/mL 0-100 [facility] Platelets bldOrdered By: Sanju Nice on 11-10-2022 Platelets (Bld) [#/Vol] 290 10*3/uL 150-450 [facility] Protein Test strip Ql (U)Ord ered By: Thai Nice on 11-10-2022 Protein Ql (U) Negative Negative [facility] Serum or plasma albumin sadi urement (mass/volume)Ordered By: Thai Nice on 11-10-2022 Albumin [Mass/Vol] 3.2 g/dL 3.2-5.0 [facility] Serum or plasma albumin/glob ulin mass ratioOrdered By: Thai Nice on 11-10-2022 Albumin/Globulin [Mass ratio] 0.9 {ratio} 0.9-2.4 [facility] Serum or plasma calcium sadi urement (mass/volume)Ordered By: Thai Nice on 11-10-2022 Calcium [Mass/Vol] 8.5 mg/dL 8.5-10.1 [facility] Serum or plasma creatinine m easurement (mass/volume)Ordered By: Thai Nice on 11-10-2022 Creatinine [Mass/Vol] 1.23 mg/dL 0.70-1.30 [facility] Comment on above: The validity of the calculated GFR & GFRAA in patients over 70 years has not been determined. Clinical correlation is essential. Serum or plasma urea nitroge n measurement (mass/volume)Ordered By: Thai Nice on 11-10-2022 Urea nitrogen [Mass/Vol] 25 mg/dL 7-18 [facility] Squamous epithelial cells de tection in urine sediment by light microscopyOrdered By: Thai Nice on 11-10-2022 Epithelial cells.squamous LM Ql (Urine sed) 0-5 SEEN /hpf 0-5 [facility] Thin prep Papanicolaou smear with manual screeningOrdered By: Thai Nice on 11-10-2022 Thin prep Papanicolaou smear with manual screening 20 U/L 15-37 [facility] Thin prep Papanicolaou smear with manual screening 7 5-15 [facility] Urine blood detectionOrdered By: Thai Nice on 11-10-2022 RBC Ql (U) Negative Negative [facility] RBC Ql (U) 0 SEEN /hpf 0-5 [facility] Urine clarityOrdered By: Sanju Nice on 11-10-2022 Clarity (U) Clear Clear [facility] Urine color determinationOrd ered By: Thai Nice on 11-10-2022 Color (U) Yellow Yellow [facility] Urine glucose detectionOrder ed By: Thai Nice on 11-10-2022 Glucose Ql (U) Normal mg/dl Normal [facility] Urine leukocyte esterase det ection by dipstickOrdered By: Thai Nice on 11-10-2022 Leukocyte esterase Test strip Ql (U) 25 /ul Negative [facility] Urine pHOrdered By: Thai franklin on 11-10-2022 pH (U) 5.0 [pH] 5.0 - 8.0 [facility] Urine sediment bacteria coun t by microscopy (number/high power field)Ordered By: Thai Nice on 11-10-2022 Bacteria LM.HPF (Urine sed) [#/Area] 0 /[HPF] None Seen [facility] Urine specific gravity measu rementOrdered By: Thai Nice on 11-10-2022 Specific gravity (U) [Rel density] 1.020 1.002-1.030 [facility] Urobilinogen Auto test strip Ql (U)Ordered By: Thai Nice on 11-10-2022 Urobilinogen Ql (U) Normal mg/dl Normal [facility] Basophil percentageOrdered B y: Elvi Layton on 11-02-2022 Basophil percentage 0 SEEN /hpf 0-5 [facility] Basophil percentageOrdered B y: Zaki Vigil on 11-02-2022 Basophil percentage 95 mg/dL 74-106 [facility] Basophil percentage 139 mmol/L 136-145 [facility] Basophil percentage 4.2 mmol/L 3.5-5.1 [facility] Basophil percentage 110 mmol/L 98-107 [facility] Chloride [Moles/Vol] 110 mmol/L 98-107 [facility] Glucose [Mass/Vol] 95 mg/dL 74-106 [facility] Potassium [Moles/Vol] 4.2 mmol/L 3.5-5.1 [facility] Sodium [Moles/Vol] 139 mmol/L 136-145 [facility] Bilirubin Test strip Ql (U)O rdered By: Elvi Layton on 11-02-2022 Bilirubin Ql (U) Negative Negative [facility] Ketones Test strip Ql (U)Ord ered By: Elvi Layton on 11-02-2022 Ketones Ql (U) Negative Negative [facility] Laboratory - Chemistry and C hemistry - challengeOrdered By: Zaki Vigil on 11-02-2022 CO2 [Moles/Vol] 29.0 mmol/L 21.0-32.0 [facility] Urea nitrogen/Creatinine [Mass ratio] 13.0 mg/mg 10-20 [facility] - Drug toxicology Ordered By: Elvi Layton on 11-02-2022 Amphetamines Ql (U) Negative <1000 ng/mL [facility] Benzodiazepines Ql (U) Positive < 200 ng/mL [facility] Cannabinoids Screen Ql (U) Negative < 50 ng/mL [facility] Cocaine Ql (U) Negative < 300 ng/mL [facility] Opiates Ql (U) Negative < 300 ng/mL [facility] Mucus LM Ql (Urine sed)Order ed By: Elvi Layton on 11-02-2022 Mucus Ql (Urine sed) 0 SEEN /hpf [facility] Nitrite Test strip Ql (U)Ord ered By: Elvi Layton on 11-02-2022 Nitrite Ql (U) Negative Negative [facility] No Panel InformationOrdered By: Elvi Layton on 11-02-2022 MDMA (Ecstasy) Screen Negative < 500 ng/mL [facility] Urine Barbiturates Screen Positive < 200 ng/mL [facility] Urine Drug Screen Comment [facility] Comment on above: CONFIRMATORY TESTING FOR ALL POSITIVE URINE DRUG SCREENRESULTS WILL ONLY BE SENT OUT UPON PHYSICIAN ORDER. VISTA Urine Drug Screen methods provide only preliminaryanalytical test results. A more specific alternate chemicalmethod must be used in order to obtain a confirmedanalytical result. Gas chromatography/mass spectrometery(GC/MS) is the preferred confirmatory method. Clinicalconsideration and professional judgement should be appliedto any drug of abuse test result, particularly whenpreliminary positive results are used. URINE TCA TESTING MUST BE ORDERED SEPARATELY. USE TESTMNEMONIC: [facility] Urine Methadone Screen Negative < 300 ng/mL [facility] Negative < 50 ng/mL [facility] Positive < 200 ng/mL [facility] No Panel InformationOrdered By: Zaki Vigil on 11-02-2022 Estimated Creatinine Clearance Calc 65.33 ml/min [facility] Estimated GFR (MDRD) Amer 105 mL/min >60 [facility] Comment on above: GFR Calc Estimated GFR (MDRD) Non-Af Amer 87 mL/min >60 [facility] Comment on above: Non- GFR Calc 87 mL/min >60 [facility] 105 mL/min >60 [facility] 65.33 ml/min [facility] 13.0 RATIO 10-20 [facility] 29.0 mmol/L 21.0-32.0 [facility] Protein Test strip Ql (U)Ord ered By: Elvi Layton on 11-02-2022 Protein Ql (U) Negative Negative [facility] Serum or plasma calcium sadi urement (mass/volume)Ordered By: Zaki Vigil on 11-02-2022 Calcium [Mass/Vol] 8.2 mg/dL 8.5-10.1 [facility] Serum or plasma creatinine m easurement (mass/volume)Ordered By: Zaki Vigil on 11-02-2022 Creatinine [Mass/Vol] 0.92 mg/dL 0.70-1.30 [facility] Comment on above: The validity of the calculated GFR & GFRAA in patients over 70 years has not been determined. Clinical correlation is essential. Serum or plasma urea nitroge n measurement (mass/volume)Ordered By: Zaki Vigil on 11-02-2022 Urea nitrogen [Mass/Vol] 12 mg/dL 7-18 [facility] Squamous epithelial cells de tection in urine sediment by light microscopyOrdered By: Elvi Layton on 11-02-2022 Epithelial cells.squamous LM Ql (Urine sed) 0 SEEN /hpf 0-5 [facility] Thin prep Papanicolaou smear with manual screeningOrdered By: Zaki Vigil on 11-02-2022 Thin prep Papanicolaou smear with manual screening 0 5-15 [facility] Urine blood detectionOrdered By: Elvi Layton on 11-02-2022 RBC Ql (U) 10 /ul Negative [facility] RBC Ql (U) 0 SEEN /hpf 0-5 [facility] Urine clarityOrdered By: Tracy Layton on 11-02-2022 Clarity (U) Clear Clear [facility] Urine color determinationOrd ered By: Elvi Layton on 11-02-2022 Color (U) Yellow Yellow [facility] Urine glucose detectionOrder ed By: Elvi Layton on 11-02-2022 Glucose Ql (U) Normal mg/dl Normal [facility] Urine leukocyte esterase det ection by dipstickOrdered By: Elvi Layton on 11-02-2022 Leukocyte esterase Test strip Ql (U) Negative Negative [facility] Urine pHOrdered By: Elvi romo on 11-02-2022 pH (U) 8.0 [pH] 5.0 - 8.0 [facility] Urine phencyclidine (PCP) de tectionOrdered By: Elvi Layton on 11-02-2022 Phencyclidine Ql (U) Negative < 25 ng/mL [facility] Urine sediment bacteria coun t by microscopy (number/high power field)Ordered By: Elvi Layton on 11-02-2022 Bacteria LM.HPF (Urine sed) [#/Area] 0 /[HPF] None Seen [facility] Urine specific gravity measu rementOrdered By: Elvi Layton on 11-02-2022 Specific gravity (U) [Rel density] 1.010 1.002-1.030 [facility] Urobilinogen Auto test strip Ql (U)Ordered By: Elvi Layton on 11-02-2022 Urobilinogen Ql (U) Normal mg/dl Normal [facility] Absolute lymphocyte countOrd ered By: Brennan Styles on 11-01-2022 Lymphocytes Auto (Unsp spec) [#/Vol] 4.85 10*3/uL 0.83-4.51 [facility] Basophil percentageOrdered B y: Brennan Styles on 11-01-2022 Basophil percentage 1.1 mmol/L 0.4-2.0 [facility] Lactate [Moles/Vol] 1.1 mmol/L 0.4-2.0 [facility] Basophil percentage 6.6 g/dL 6.4-8.2 [facility] Basophil percentage 0.50 mg/dL 0.20-1.00 [facility] Basophils (Bld) [#/Vol] 11.9 10*3/uL 4.4-11.0 [facility] Basophils (Bld) [#/Vol] 5.6 10*3/uL 2.0-7.7 [facility] Basophils/100 WBC (Bld) 0.6 % 0-1 [facility] Basophils/100 WBC (Bld) 46.8 % 47-70 [facility] Basophils/100 WBC (Bld) 6.5 % 0-5 [facility] Bilirubin [Mass/Vol] 0.50 mg/dL 0.20-1.00 [facility] Comment on above: For patients on eltr ombopag therapy, use of Dimension [place] TBIL is not recommended. Chloride [Moles/Vol] 105 mmol/L 98-107 [facility] Eosinophils/100 WBC (Bld) 6.5 % 0-5 [facility] Glucose [Mass/Vol] 77 mg/dL 74-106 [facility] Neutrophils (Bld) [#/Vol] 5.6 10*3/uL 2.0-7.7 [facility] Neutrophils/100 WBC (Bld) 46.8 % 47-70 [facility] Potassium [Moles/Vol] 4.5 mmol/L 3.5-5.1 [facility] Protein [Mass/Vol] 6.6 g/dL 6.4-8.2 [facility] Sodium [Moles/Vol] 135 mmol/L 136-145 [facility] WBC (Bld) [#/Vol] 11.9 10*3/uL 4.4-11.0 [facility] Blood erythrocytes count (nu mber/volume)Ordered By: Brennan Styles on 11-01-2022 RBC (Bld) [#/Vol] 4.09 10*6/uL 4.6-6.2 [facility] Blood hemoglobin measurement (mass/volume)Ordered By: Brennan Styles on 11-01-2022 Hemoglobin (Bld) [Mass/Vol] 13.7 g/dL 13.0-16.5 [facility] Blood lymphocytes/100 leukoc ytesOrdered By: Brennan Styles on 11-01-2022 Lymphocytes/100 WBC (Bld) 40.6 % 19-41 [facility] Blood monocytes/100 leukocyt esOrdered By: Brennan Styles on 11-01-2022 Monocytes/100 WBC (Bld) 5.3 % 0-10 [facility] Blood platelet adequacy dete ction by light microscopyOrdered By: Brennan Styles on 11-01-2022 Platelets LM Ql (Bld) ADEQUATE ADEQ [facility] Blood platelet mean volumeOr dered By: Brennan Styles on 11-01-2022 Platelet mean volume (Bld) [Entitic vol] 9.9 fL 6.2-12.0 [facility] Determination of erythrocyte mean corpuscular volume (MCV)Ordered By: Brennan Styles on 11-01-2022 MCV (RBC) [Entitic vol] 104.2 fL 80-94 [facility] Hematocrit Auto (Bld) [Volum e fraction]Ordered By: Brennan Styles on 11-01-2022 Hematocrit (Bld) [Volume fraction] 42.6 % 40-54 [facility] Laboratory - Chemistry and C hemistry - challengeOrdered By: Brennan Styles on 11-01-2022 ALP [Catalytic activity/Vol] 79 U/L 45-117 [facility] ALT [Catalytic activity/Vol] 27 U/L 16-61 [facility] CO2 [Moles/Vol] 25.0 mmol/L 21.0-32.0 [facility] Globulin (S) [Mass/Vol] 3.3 g/dL 2.2-4.2 [facility] Lipase [Catalytic activity/Vol] 14 U/L 13-75 [facility] Comment on above: Please note:LIPASE r evised reference range effective 22. New Lipase methodology. Expected to produce lower values than the previous assay method. NEW Reference Range: 13 - 75 U/L Urea nitrogen/Creatinine [Mass ratio] 15.0 mg/mg 10-20 [facility] Laboratory - Hematology and Cell countsOrdered By: Brennan Styles on 11-01-2022 Anisocytosis Ql (Bld) 1+ [facility] Erythrocyte distribution width (RBC) [Entitic vol] 49.4 fL 35.1-43.9 [facility] Erythrocyte distribution width (RBC) [Ratio] 12.8 % 11.6-14.6 [facility] Immature granulocytes/100 WBC (Bld) 0.200 % 0.0-0.9 [facility] Comment on above: IG% - Immature Granu locytes (promyelocytes, myelocytes and metamyelocytes) > 1% indicates that a LEFT SHIFT is Present. MCH (RBC) [Entitic mass] 33.5 pg 27.0-32.0 [facility] Nucleated RBC/100 WBC (Bld) [Ratio] 0 % 0-5 [facility] MCHC Auto (RBC) [Mass/Vol]Or dered By: Brennan Styles on 11-01-2022 MCHC (RBC) [Mass/Vol] 32.2 g/dL 32-36 [facility] Macrocytes detectionOrdered By: Brennan Styles on 11-01-2022 Macrocytes Ql (Bld) 1+ [facility] No Panel InformationOrdered By: Brennan Styles on 11-01-2022 Atypical Lymphocytes 2+ % [facility] Estimated Creatinine Clearance Calc 67.90 ml/min [facility] Estimated GFR (MDRD) Amer 96 mL/min >60 [facility] Comment on above: GFR Calc Estimated GFR (MDRD) Non-Af Amer 79 mL/min >60 [facility] Comment on above: Non- GFR Calc Troponin I High Sensitivity 7 pg/mL 3.0-78.0 [facility] Comment on above: Please Note: New Renay t Units and Gender Specific Reference Ranges. For more information see Policy Stat Procedure [place] High Sensitivity Troponin (TNIH) and attachments. 33.5 pg 27.0-32.0 [facility] 12.8 % 11.6-14.6 [facility] 49.4 fl 35.1-43.9 [facility] 0.200 % 0.0-0.9 [facility] 0 % 0-5 [facility] 2+ % [facility] 1+ [facility] 3.3 g/dL 2.2-4.2 [facility] 14 U/L 13-75 [facility] 7 pg/mL 3.0-78.0 [facility] 79 U/L 45-117 [facility] 27 U/L 16-61 [facility] Ovalocyte detectionOrdered B y: Brennan Styles on 11-01-2022 Ovalocytes LM Ql (Bld) RARE [facility] Platelets bldOrdered By: Vance Styles on 11-01-2022 Platelets (Bld) [#/Vol] 234 10*3/uL 150-450 [facility] RBC morphologyOrdered By: Slade Styles on 11-01-2022 RBC morphology finding Nom (Bld) N CHROM NORMAL NORM C&C [facility] Serum or plasma albumin sadi urement (mass/volume)Ordered By: Brennan Styles on 11-01-2022 Albumin [Mass/Vol] 3.3 g/dL 3.2-5.0 [facility] Serum or plasma albumin/glob ulin mass ratioOrdered By: Brennan Styles on 11-01-2022 Albumin/Globulin [Mass ratio] 1.0 {ratio} 0.9-2.4 [facility] Serum or plasma calcium sadi urement (mass/volume)Ordered By: Brennan Styles on 11-01-2022 Calcium [Mass/Vol] 8.4 mg/dL 8.5-10.1 [facility] Serum or plasma creatinine m easurement (mass/volume)Ordered By: Brennan Styles on 11-01-2022 Creatinine [Mass/Vol] 1.00 mg/dL 0.70-1.30 [facility] Comment on above: The validity of the calculated GFR & GFRAA in patients over 70 years has not been determined. Clinical correlation is essential. Serum or plasma urea nitroge n measurement (mass/volume)Ordered By: Brennan Styles on 11-01-2022 Urea nitrogen [Mass/Vol] 15 mg/dL 7-18 [facility] Thin prep Papanicolaou smear with manual screeningOrdered By: Brennan Styles on 11-01-2022 Thin prep Papanicolaou smear with manual screening 29 U/L 15-37 [facility] Thin prep Papanicolaou smear with manual screening 5 5-15 [facility] Absolute lymphocyte countOrd ered By: Zaki Estevez on 10-20-2022 Lymphocytes Auto (Unsp spec) [#/Vol] 4.44 10*3/uL 0.83-4.51 [facility] Basophil percentageOrdered B y: Zaki Estevez on 10-20-2022 Basophil percentage 93 mg/dL 74-106 [facility] Basophil percentage 6.4 g/dL 6.4-8.2 [facility] Basophil percentage 0.40 mg/dL 0.20-1.00 [facility] Basophil percentage 138 mmol/L 136-145 [facility] Basophil percentage 4.1 mmol/L 3.5-5.1 [facility] Basophil percentage 105 mmol/L 98-107 [facility] Basophil percentage 1.2 mmol/L 0.4-2.0 [facility] Basophils (Bld) [#/Vol] 9.8 10*3/uL 4.4-11.0 [facility] Basophils (Bld) [#/Vol] 3.5 10*3/uL 2.0-7.7 [facility] Basophils/100 WBC (Bld) 0.6 % 0-1 [facility] Basophils/100 WBC (Bld) 35.2 % 47-70 [facility] Basophils/100 WBC (Bld) 8.5 % 0-5 [facility] Bilirubin [Mass/Vol] 0.40 mg/dL 0.20-1.00 [facility] Comment on above: For patients on eltr ombopag therapy, use of Dimension [place] TBIL is not recommended. Chloride [Moles/Vol] 105 mmol/L 98-107 [facility] Eosinophils/100 WBC (Bld) 8.5 % 0-5 [facility] Glucose [Mass/Vol] 93 mg/dL 74-106 [facility] Lactate [Moles/Vol] 1.2 mmol/L 0.4-2.0 [facility] Neutrophils (Bld) [#/Vol] 3.5 10*3/uL 2.0-7.7 [facility] Neutrophils/100 WBC (Bld) 35.2 % 47-70 [facility] Potassium [Moles/Vol] 4.1 mmol/L 3.5-5.1 [facility] Protein [Mass/Vol] 6.4 g/dL 6.4-8.2 [facility] Sodium [Moles/Vol] 138 mmol/L 136-145 [facility] WBC (Bld) [#/Vol] 9.8 10*3/uL 4.4-11.0 [facility] Blood erythrocytes count (nu mber/volume)Ordered By: Zaki Estevez on 10-20-2022 RBC (Bld) [#/Vol] 3.85 10*6/uL 4.6-6.2 [facility] Blood hemoglobin measurement (mass/volume)Ordered By: Zaki Estevez on 10-20-2022 Hemoglobin (Bld) [Mass/Vol] 13.2 g/dL 13.0-16.5 [facility] Blood lymphocytes/100 leukoc ytesOrdered By: Zaki Estevez on 10-20-2022 Lymphocytes/100 WBC (Bld) 45.3 % 19-41 [facility] Blood manual differential co mment interpretation (narrative result)Ordered By: Zaki Estevez on 10-20-2022 Manual differential comment Bari (Bld) [Interp] SCANNED [facility] Blood monocytes/100 leukocyt esOrdered By: Zaki Estevez on 10-20-2022 Monocytes/100 WBC (Bld) 10.2 % 0-10 [facility] Blood platelet mean volumeOr dered By: Zaki Estevez on 10-20-2022 Platelet mean volume (Bld) [Entitic vol] 9.8 fL 6.2-12.0 [facility] Determination of erythrocyte mean corpuscular volume (MCV)Ordered By: Zaki Estevez on 10-20-2022 MCV (RBC) [Entitic vol] 100.3 fL 80-94 [facility] Hematocrit Auto (Bld) [Volum e fraction]Ordered By: Zaki Estevez on 10-20-2022 Hematocrit (Bld) [Volume fraction] 38.6 % 40-54 [facility] Laboratory - Chemistry and C hemistry - challengeOrdered By: Zaki Estevez on 10-20-2022 ALP [Catalytic activity/Vol] 84 U/L 45-117 [facility] ALT [Catalytic activity/Vol] 27 U/L 16-61 [facility] CO2 [Moles/Vol] 31.0 mmol/L 21.0-32.0 [facility] Globulin (S) [Mass/Vol] 3.1 g/dL 2.2-4.2 [facility] Urea nitrogen/Creatinine [Mass ratio] 15.5 mg/mg 10-20 [facility] Laboratory - Hematology and Cell countsOrdered By: Zaki Estevez on 10-20-2022 Erythrocyte distribution width (RBC) [Entitic vol] 48.1 fL 35.1-43.9 [facility] Erythrocyte distribution width (RBC) [Ratio] 13.0 % 11.6-14.6 [facility] Immature granulocytes/100 WBC (Bld) 0.200 % 0.0-0.9 [facility] Comment on above: IG% - Immature Granu locytes (promyelocytes, myelocytes and metamyelocytes) > 1% indicates that a LEFT SHIFT is Present. MCH (RBC) [Entitic mass] 34.3 pg 27.0-32.0 [facility] Nucleated RBC/100 WBC (Bld) [Ratio] 0 % 0-5 [facility] MCHC Auto (RBC) [Mass/Vol]Or dered By: Zaki Estevez on 10-20-2022 MCHC (RBC) [Mass/Vol] 34.2 g/dL 32-36 [facility] No Panel InformationOrdered By: Zaki Estevez on 10-20-2022 Atypical Lymphocytes RARE % [facility] Estimated Creatinine Clearance Calc 63.79 ml/min [facility] Estimated GFR (MDRD) Amer 92 mL/min >60 [facility] Comment on above: GFR Calc Estimated GFR (MDRD) Non-Af Amer 76 mL/min >60 [facility] Comment on above: Non- GFR Calc 34.3 pg 27.0-32.0 [facility] 13.0 % 11.6-14.6 [facility] 48.1 fl 35.1-43.9 [facility] 0.200 % 0.0-0.9 [facility] 0 % 0-5 [facility] RARE % [facility] 76 mL/min >60 [facility] 92 mL/min >60 [facility] 63.79 ml/min [facility] 15.5 RATIO 10-20 [facility] 3.1 g/dL 2.2-4.2 [facility] 84 U/L 45-117 [facility] 27 U/L 16-61 [facility] 31.0 mmol/L 21.0-32.0 [facility] Platelets bldOrdered By: Tania Estevez on 10-20-2022 Platelets (Bld) [#/Vol] 240 10*3/uL 150-450 [facility] Serum or plasma albumin sadi urement (mass/volume)Ordered By: Zaki Estevez on 10-20-2022 Albumin [Mass/Vol] 3.3 g/dL 3.2-5.0 [facility] Serum or plasma albumin/glob ulin mass ratioOrdered By: Zaki Estevez on 10-20-2022 Albumin/Globulin [Mass ratio] 1.1 {ratio} 0.9-2.4 [facility] Serum or plasma calcium sadi urement (mass/volume)Ordered By: Zaki Estevez on 10-20-2022 Calcium [Mass/Vol] 8.6 mg/dL 8.5-10.1 [facility] Serum or plasma creatinine m easurement (mass/volume)Ordered By: Zaki Estevez on 10-20-2022 Creatinine [Mass/Vol] 1.03 mg/dL 0.70-1.30 [facility] Comment on above: The validity of the calculated GFR & GFRAA in patients over 70 years has not been determined. Clinical correlation is essential. Serum or plasma urea nitroge n measurement (mass/volume)Ordered By: Zaki Estevez on 10-20-2022 Urea nitrogen [Mass/Vol] 16 mg/dL 7-18 [facility] Thin prep Papanicolaou smear with manual screeningOrdered By: Zaki Estevez on 10-20-2022 Thin prep Papanicolaou smear with manual screening 18 U/L 15-37 [facility] Thin prep Papanicolaou smear with manual screening 2 5-15 [facility] .Auto Diffon 09-14-2022 Basophil, Absolute 0.0 10 3/mcL Normal 0.0-0.3 [facility] ([place]) Comment on above: Performed By: #### A DIFF, BMP, ANEU, MORPH, CBC, GFR ####[address] [address] Basophils/100 WBC (Bld) 0.3 % Normal 0.0-2.5 [facility] ([place]) Comment on above: Performed By: #### A DIFF, BMP, ANEU, MORPH, CBC, GFR ####[address] [address] Eosinophil, Absolute 0.7 10 3/mcL Normal 0.0-0.7 [facility] ([place]) Comment on above: Performed By: #### A DIFF, BMP, ANEU, MORPH, CBC, GFR ####[address] [address] Eosinophils/100 WBC (Bld) 5.9 % Normal 0.0-6.0 [facility] ([place]) Comment on above: Performed By: #### A DIFF, BMP, ANEU, MORPH, CBC, GFR ####[address] [address] Lymphocyte, Absolute 5.8 10 3/mcL High 0.9-4.3 [facility] ([place]) Comment on above: Performed By: #### A DIFF, BMP, ANEU, MORPH, CBC, GFR ####[address] [address] Lymphocytes/100 WBC (Bld) 51.9 % High 20.0-40.0 [facility] ([place]) Comment on above: Performed By: #### A DIFF, BMP, ANEU, MORPH, CBC, GFR ####[address] [address] Monocyte, Absolute 0.8 10 3/mcL Normal 0.1-1.4 [facility] ([place]) Comment on above: Performed By: #### A DIFF, BMP, ANEU, MORPH, CBC, GFR ####[address] [address] Monocytes/100 WBC (Bld) 6.8 % Normal 2.0-13.0 [facility] ([place]) Comment on above: Performed By: #### A DIFF, BMP, ANEU, MORPH, CBC, GFR ####[address] [address] Neutrophils/100 WBC (Bld) 35.1 % Low 50.0-75.0 [facility] ([place]) Comment on above: Performed By: #### A DIFF, BMP, ANEU, MORPH, CBC, GFR ####[address] [address] .GFRon 09-14-2022 GFR Non- >60 Normal [facility] ([place]) Comment on above: Result Comment: GFR Population mean for , Non- Americans Ages 20-29 = 116 mL/min/1.73 sq.m. Ages 30-39 = 107 mL/min/1.73 sq.m. Ages 40-49 = 99 mL/min/1.73 sq.m. Ages 50-59 = 93 mL/min/1.73 sq.m. Ages 60-69 = 85 mL/min/1.73 sq.m. Ages 70+ = 75 mL/min/1.73 sq.m. Chronic Kidney Disease: Less than 60 mL/min/1.73 square meters End Stage Renal Disease: Less than 15 mL/min/1.73 square meters Performed By: #### A DIFF, BMP, ANEU, MORPH, CBC, GFR ####[address] [address] GFR >60 Normal [facility] ([place]) Comment on above: Result Comment: GFR Population mean for , Non- Americans Ages 20-29 = 116 mL/min/1.73 sq.m. Ages 30-39 = 107 mL/min/1.73 sq.m. Ages 40-49 = 99 mL/min/1.73 sq.m. Ages 50-59 = 93 mL/min/1.73 sq.m. Ages 60-69 = 85 mL/min/1.73 sq.m. Ages 70+ = 75 mL/min/1.73 sq.m. Chronic Kidney Disease: Less than 60 mL/min/1.73 square meters End Stage Renal Disease: Less than 15 mL/min/1.73 square meters Performed By: #### A DIFF, BMP, ANEU, MORPH, CBC, GFR ####[address] [address] .Morphon 09-14-2022 Macrocytosis 1+ Normal [facility] ([place]) Comment on above: Performed By: #### A DIFF, BMP, ANEU, MORPH, CBC, GFR ####[place] [address] Platelet Estimate Normal Normal [facility] ([place]) Comment on above: Performed By: #### A DIFF, BMP, ANEU, MORPH, CBC, GFR ####[place] [address] .NEUABSon 09-14-2022 Neutrophil, Absolute 3.9 10 3/mcL Normal 2.3-8.1 [facility] ([place]) Comment on above: Performed By: #### A DIFF, BMP, ANEU, MORPH, CBC, GFR ####[place] [address] BMPon 09-14-2022 BUN/Creatinine Ratio 28.0 ratio High 10.0-22.0 [facility] ([place]) Comment on above: Performed By: #### A DIFF, BMP, ANEU, MORPH, CBC, GFR ####[place] [address] Calcium [Mass/Vol] 8.5 mg/dL Low 8.7-10.4 [facility] ([place]) Comment on above: Performed By: #### A DIFF, BMP, ANEU, MORPH, CBC, GFR ####[place] [address] Chloride [Moles/Vol] 106 mmol/L Normal 98-110 [facility] ([place]) Comment on above: Performed By: #### A DIFF, BMP, ANEU, MORPH, CBC, GFR ####[place] [address] CO2 [Moles/Vol] 26 mmol/L Normal 22-32 [facility] ([place]) Comment on above: Performed By: #### A DIFF, BMP, ANEU, MORPH, CBC, GFR ####[address] [address] Creatinine [Mass/Vol] 0.93 mg/dL Normal 0.60-1.40 [facility] ([place]) Comment on above: Performed By: #### A DIFF, BMP, ANEU, MORPH, CBC, GFR ####[place] [address] Electrolyte Balance 6.0 mEq/L Normal 4.0-15.0 [facility] ([place]) Comment on above: Performed By: #### A DIFF, BMP, ANEU, MORPH, CBC, GFR ####[place] [address] Glucose [Mass/Vol] 86 mg/dL Normal 82-115 [facility] ([place]) Comment on above: Performed By: #### A DIFF, BMP, ANEU, MORPH, CBC, GFR ####[place] [address] Potassium [Moles/Vol] 4.3 mmol/L Normal 3.5-5.0 [facility] ([place]) Comment on above: Performed By: #### A DIFF, BMP, ANEU, MORPH, CBC, GFR ####[address] [address] Sodium [Moles/Vol] 138 mmol/L Normal 136-145 [facility] ([place]) Comment on above: Performed By: #### A DIFF, BMP, ANEU, MORPH, CBC, GFR ####[address] [address] Urea nitrogen [Mass/Vol] 26.0 mg/dL High 8.0-22.0 [facility] ([place]) Comment on above: Performed By: #### A DIFF, BMP, ANEU, MORPH, CBC, GFR ####[address] [address] CBCon 09-14-2022 WBC 11.2 10 3/mcL High 4.5-10.8 [facility] ([place]) Comment on above: Performed By: #### A DIFF, BMP, ANEU, MORPH, CBC, GFR ####[place] [address] Erythrocyte distribution width (RBC) [Ratio] 13.2 % Normal 11.5-15.5 [facility] ([place]) Comment on above: Performed By: #### A DIFF, BMP, ANEU, MORPH, CBC, GFR ####[place] [address] Hematocrit (Bld) [Volume fraction] 39.5 % Low 40.0-52.0 [facility] ([place]) Comment on above: Performed By: #### A DIFF, BMP, ANEU, MORPH, CBC, GFR ####[place] [address] Hgb 13.1 G/dL Normal 13.0-17.5 [facility] ([place]) Comment on above: Performed By: #### A DIFF, BMP, ANEU, MORPH, CBC, GFR ####[place] [address] MCH (RBC) [Entitic mass] 33.3 pg High 27.0-33.0 [facility] ([place]) Comment on above: Performed By: #### A DIFF, BMP, ANEU, MORPH, CBC, GFR ####[place] [address] MCHC 33.2 G/dL Normal 32.0-36.0 [facility] ([place]) Comment on above: Performed By: #### A DIFF, BMP, ANEU, MORPH, CBC, GFR ####[place] [address] MCV (RBC) [Entitic vol] 100.3 fL High 81.0-100.0 [facility] ([place]) Comment on above: Performed By: #### A DIFF, BMP, ANEU, MORPH, CBC, GFR ####[place] [address] Platelet 268 10 3/mcL Normal 150-450 [facility] ([place]) Comment on above: Performed By: #### A DIFF, BMP, ANEU, MORPH, CBC, GFR ####[facility] [place] [id number] Platelet mean volume (Bld) [Entitic vol] 8.6 fL Normal 6.4-10.5 [facility] ([place]) Comment on above: Performed By: #### A DIFF, BMP, ANEU, MORPH, CBC, GFR ####[place] [id number] [place] [id number] RBC 3.94 10 6/mcL Low 4.50-6.00 [facility] ([place]) Comment on above: Performed By: #### A DIFF, BMP, ANEU, MORPH, CBC, GFR ####[address] [address] LABORATORYOrdered By: SYSTEM SYSTEM on 09-14-2022 Basophils (Bld) [#/Vol] 0.0 103/mcL Invalid Interpretation Code 0.0 - 0.3 10^3/mcL Workflow SS Basophils/100 WBC (Bld) 0.3 % Invalid Interpretation Code 0.0 - 2.5 % Workflow SS Calcium [Mass/Vol] 8.5 mg/dL Invalid Interpretation Code 8.7 - 10.4 mg/dL ADM SS Chloride [Moles/Vol] 106 mmol/L Invalid Interpretation Code 98 - 110 mEq/L ADM SS CO2 [Moles/Vol] 26 mmol/L Invalid Interpretation Code 22 - 32 mEq/L ADM SS Creatinine [Mass/Vol] 0.93 mg/dL Invalid Interpretation Code 0.60 - 1.40 mg/dL ADM SS Electrolyte Balance 6.0 mEq/L Invalid Interpretation Code 4.0 - 15.0 mEq/L ADM SS Eosinophils (Bld) [#/Vol] 0.7 103/mcL Invalid Interpretation Code 0.0 - 0.7 10^3/mcL Workflow SS Eosinophils/100 WBC (Bld) 5.9 % Invalid Interpretation Code 0.0 - 6.0 % Workflow SS Erythrocyte distribution width (RBC) [Ratio] 13.2 % Invalid Interpretation Code 11.5 - 15.5 % Workflow SS GFR/1.73 sq M.predicted among blacks MDRD (S/P/Bld) [Vol rate/Area] ml/min/1.73sqm Invalid Interpretation Code Chemistry S GFR/1.73 sq M.predicted among non-blacks MDRD (S/P/Bld) [Vol rate/Area] ml/min/1.73sqm Invalid Interpretation Code Chemistry S Glucose [Mass/Vol] 86 mg/dL Invalid Interpretation Code 82 - 115 mg/dL ADM SS Hematocrit (Bld) [Volume fraction] 39.5 % Invalid Interpretation Code 40.0 - 52.0 % AH Workflow SS Hemoglobin (Bld) [Mass/Vol] 13.1 G/dL Invalid Interpretation Code 13.0 - 17.5 G/dL AH Workflow SS Lymphocytes (Bld) [#/Vol] 5.8 103/mcL Invalid Interpretation Code 0.9 - 4.3 10^3/mcL Workflow SS Lymphocytes/100 WBC (Bld) 51.9 % Invalid Interpretation Code 20.0 - 40.0 % Workflow SS Macrocytes Ql (Bld) 1+ *NA* (09/14/22 5:24 AM) Invalid Interpretation Code Workflow SS MCH (RBC) [Entitic mass] 33.3 pg Invalid Interpretation Code 27.0 - 33.0 pg Workflow SS MCHC 33.2 G/dL Invalid Interpretation Code 32.0 - 36.0 G/dL Workflow SS MCV (RBC) [Entitic vol] 100.3 fL Invalid Interpretation Code 81.0 - 100.0 fL Workflow SS Monocytes (Bld) [#/Vol] 0.8 103/mcL Invalid Interpretation Code 0.1 - 1.4 10^3/mcL Workflow SS Monocytes/100 WBC (Bld) 6.8 % Invalid Interpretation Code 2.0 - 13.0 % Workflow SS Neutrophils (Bld) [#/Vol] 3.9 103/mcL Invalid Interpretation Code 2.3 - 8.1 10^3/mcL Workflow SS Neutrophils/100 WBC (Bld) 35.1 % Invalid Interpretation Code 50.0 - 75.0 % Workflow SS Platelet mean volume (Bld) [Entitic vol] 8.6 fL Invalid Interpretation Code 6.4 - 10.5 fL Workflow SS Platelets (Bld) [#/Vol] 268 103/mcL Invalid Interpretation Code 150 - 450 10^3/mcL Workflow SS Platelets LM Ql (Bld) Normal *NA* (09/14/22 5:24 AM) Invalid Interpretation Code Workflow SS Potassium [Moles/Vol] 4.3 mmol/L Invalid Interpretation Code 3.5 - 5.0 mEq/L AH ADM SS RBC (Bld) [#/Vol] 3.94 106/mcL Invalid Interpretation Code 4.50 - 6.00 10^6/mcL AH Workflow SS Sodium [Moles/Vol] 138 mmol/L Invalid Interpretation Code 136 - 145 mEq/L AH ADM SS Urea nitrogen [Mass/Vol] 26.0 mg/dL Invalid Interpretation Code 8.0 - 22.0 mg/dL AH ADM SS Urea nitrogen/Creatinine [Mass ratio] 28.0 ratio Invalid Interpretation Code 10.0 - 22.0 ratio AH ADM SS WBC (Bld) [#/Vol] 11.2 103/mcL Invalid Interpretation Code 4.5 - 10.8 10^3/mcL AH Workflow SS Katerin 09-14-2022 Lamotrigine Lvl 2.5 UG/ML Normal 1.0-13.0 [facility] ([place]) Comment on above: Result Comment: This test was developed and its performance characteristics determined by [facility] [place] ([facility] It has not been cleared or approved by the FDA. [facility] is regulated under CLIA as qualified to perform high-complexity testing. This test is used for clinical purposes. It should not be regarded as investigational or for research. Performed By: [facility] [address] [place] [address] Manager Power: Waqar Weldon III, M.D. CLIA#: [id number] Performed By: #### L MTR, AMM, ADIFF, ANEU, ESR, CBC, TSH, CMP, GFR, MG ####[place] [address] MRI BRAIN W/O CONTRASTon MRI BRAIN W/O CONTRAST ORIGINAL EXAMINATION: MRI OF THE BRAIN WITHOUT CONTRAST 09/14/2022 9:30 am TECHNIQUE: Multiplanar multisequence MRI of the brain was performed without the administration of intravenous contrast. COMPARISON: 09/12/2022 HISTORY: ORDERING SYSTEM PROVIDED HISTORY: Reason for Exam: AMS Neck and head injury, patient fell off ladder a few weeks ago, often on confusion, head and neck pain, prior open heart with 4 stents a year ago, history of stroke and seizures, confusion FINDINGS: INTRACRANIAL STRUCTURES/VENTRICLES: No abnormal restricted diffusion to suggest hyperacute, acute, or subacute infarction. No mass effect or midline shift. No evidence of an acute intracranial hemorrhage. Right parieto-occipital region encephalomalacia associated with few foci of hemosiderin deposition probably from previously hemorrhagic converted infarction. Mild compensatory dilatation of the right occipital horn. Mild involutional changes. Few scattered periventricular subcortical white matter FLAIR hyperintensities are nonspecific but statistically most consistent with mild chronic microvascular angiopathy. The sellar/suprasellar regions appear unremarkable. The normal signal voids within the major intracranial vessels appear maintained. ORBITS: The visualized portion of the orbits demonstrate no acute abnormality. SINUSES: Right maxillary and right sphenoid sinus retention cysts. BONES/SOFT TISSUES: The bone marrow signal intensity appears normal. The soft tissues demonstrate no acute abnormality. IMPRESSION: No acute intracranial abnormality. 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 Interpreted by: Kam Duran DO Preliminary Report By: Kam Duran DO Electronically signed By Kam Duran DO Dictated Date: 09/14/2022 1:49:47 PM Prelim Date: 09/14/2022 1:53:34 PM Sign Date: 09/14/2022 1:53:34 PM Ordering Provider: BRIANNA LEDEZMA [facility] ([place]) MRI SPINE CERVICAL W/O CONTR Sami 09-14-2022 MRI SPINE CERVICAL W/O CONTRAST ORIGINAL EXAMINATION: MRI OF THE CERVICAL SPINE WITHOUT CONTRAST 09/14/2022 9:56 am TECHNIQUE: Multiplanar multisequence MRI of the cervical spine was performed without the administration of intravenous contrast. COMPARISON: 09/12/2022 HISTORY: ORDERING SYSTEM PROVIDED HISTORY: Reason for Exam: neck pain, stenosis Fell off a ladder on 2 weeks ago, neck pain FINDINGS: Motion artifacts obscure some details. BONES/ALIGNMENT: Mild reversal of the cervical lordosis centered at C4. Minimal degenerative retrolisthesis from C4 through C6. Degenerative vertebral height loss is most prominent from C4 through C6. Marrow edema is most prominent at C4 vertebral body extending to the left greater than right pedicle regions. Marrow edema is less conspicuous at C5 and C6. A T2 hyperintense base of dens cyst appeared multiloculated on recent CT. SPINAL CORD: No abnormal cord signal is seen. SOFT TISSUES: Left T1-2 and much smaller right C6-7 and C7-T1 perineural sleeve cysts. Otherwise no paraspinal mass identified. Major included vascular T2 flow voids are maintained. DEGENERATIVE: Multilevel disc osteophyte complexes and uncovertebral and facet arthropathy. Ligamentum flavum hypertrophy is most prominent at from C5 through C7. C2-C3: No stenosis C3-C4: Flattened anterior thecal sac without central spinal stenosis. [id number] left and mild right foraminal stenosis. C4-C5: Mild spinal canal stenosis. Moderate right and mild left foraminal stenosis. C5-C6: Moderate spinal canal stenosis. Severe bilateral foraminal stenosis. C6-C7: Patent spinal canal. Mild to moderate bilateral foraminal stenosis. C7-T1: No stenosis. IMPRESSION: Stress reaction edema most prominent at C4, and to a lesser degree at C5 and C6. No definite fracture. Moderate C5-6 spinal canal stenosis. Foraminal stenosis (moderate right C4-5, severe bilateral C5-6). Interpreted by: Kam Duran DO Preliminary Report By: Kam Duran DO Electronically signed By Kam Duran DO Dictated Date: 09/14/2022 1:53:49 PM Prelim Date: 09/14/2022 2:18:22 PM Sign Date: 09/14/2022 2:18:22 PM Ordering Provider: BRIANNA Fine [facility] ([place]) .Auto Diffon 09-13-2022 Basophil, Absolute 0.1 10 3/mcL Normal 0.0-0.3 [facility] ([place]) Comment on above: Performed By: #### L MTR, AMM, ADIFF, ANEU, ESR, CBC, TSH, CMP, GFR, MG ####[address] [address] Basophils/100 WBC (Bld) 0.6 % Normal 0.0-2.5 [facility] ([place]) Comment on above: Performed By: #### L MTR, AMM, ADIFF, ANEU, ESR, CBC, TSH, CMP, GFR, MG ####[address] [address] Eosinophil, Absolute 0.6 10 3/mcL Normal 0.0-0.7 [facility] ([place]) Comment on above: Performed By: #### L MTR, AMM, ADIFF, ANEU, ESR, CBC, TSH, CMP, GFR, MG ####[address] [address] Eosinophils/100 WBC (Bld) 5.3 % Normal 0.0-6.0 [facility] ([place]) Comment on above: Performed By: #### L MTR, AMM, ADIFF, ANEU, ESR, CBC, TSH, CMP, GFR, MG ####[address] [address] Lymphocyte, Absolute 5.6 10 3/mcL High 0.9-4.3 [facility] ([place]) Comment on above: Performed By: #### L MTR, AMM, ADIFF, ANEU, ESR, CBC, TSH, CMP, GFR, MG ####[address] [address] Lymphocytes/100 WBC (Bld) 48.9 % High 20.0-40.0 [facility] ([place]) Comment on above: Performed By: #### L MTR, AMM, ADIFF, ANEU, ESR, CBC, TSH, CMP, GFR, MG ####[address] [address] Monocyte, Absolute 0.7 10 3/mcL Normal 0.1-1.4 [facility] ([place]) Comment on above: Performed By: #### L MTR, AMM, ADIFF, ANEU, ESR, CBC, TSH, CMP, GFR, MG ####[address] [address] Monocytes/100 WBC (Bld) 5.8 % Normal 2.0-13.0 [facility] ([place]) Comment on above: Performed By: #### L MTR, AMM, ADIFF, ANEU, ESR, CBC, TSH, CMP, GFR, MG ####[address] [address] Neutrophils/100 WBC (Bld) 39.4 % Low 50.0-75.0 [facility] ([place]) Comment on above: Performed By: #### L MTR, AMM, ADIFF, ANEU, ESR, CBC, TSH, CMP, GFR, MG ####[address] [address] .GFRon 09-13-2022 GFR >60 Normal [facility] ([place]) Comment on above: Result Comment: GFR Population mean for , Non- Americans Ages 20-29 = 116 mL/min/1.73 sq.m. Ages 30-39 = 107 mL/min/1.73 sq.m. Ages 40-49 = 99 mL/min/1.73 sq.m. Ages 50-59 = 93 mL/min/1.73 sq.m. Ages 60-69 = 85 mL/min/1.73 sq.m. Ages 70+ = 75 mL/min/1.73 sq.m. Chronic Kidney Disease: Less than 60 mL/min/1.73 square meters End Stage Renal Disease: Less than 15 mL/min/1.73 square meters Performed By: #### L MTR, AMM, ADIFF, ANEU, ESR, CBC, TSH, CMP, GFR, MG ####[place] [address] GFR Non- >60 Normal [facility] ([place]) Comment on above: Result Comment: GFR Population mean for , Non- Americans Ages 20-29 = 116 mL/min/1.73 sq.m. Ages 30-39 = 107 mL/min/1.73 sq.m. Ages 40-49 = 99 mL/min/1.73 sq.m. Ages 50-59 = 93 mL/min/1.73 sq.m. Ages 60-69 = 85 mL/min/1.73 sq.m. Ages 70+ = 75 mL/min/1.73 sq.m. Chronic Kidney Disease: Less than 60 mL/min/1.73 square meters End Stage Renal Disease: Less than 15 mL/min/1.73 square meters Performed By: #### L MTR, AMM, ADIFF, ANEU, ESR, CBC, TSH, CMP, GFR, MG ####[place] [address] .NEUABSon 09-13-2022 Neutrophil, Absolute 4.5 10 3/mcL Normal 2.3-8.1 [facility] ([place]) Comment on above: Performed By: #### L MTR, AMM, ADIFF, ANEU, ESR, CBC, TSH, CMP, GFR, MG ####[place] [address] Laila 09-13-2022 Ethanol Level <10.0 Normal [facility] ([place]) Comment on above: Performed By: #### A LC, DRUGS #### [place] [address] Citlalli 09-13-2022 Ammonia 25 mcmol/l Normal 11-32 [facility] ([place]) Comment on above: Result Comment: Spec imen slightly hemolyzed. Performed By: #### L MTR, AMM, ADIFF, ANEU, ESR, CBC, TSH, CMP, GFR, MG ####[place] [address] CBCon 09-13-2022 Erythrocyte distribution width (RBC) [Ratio] 13.2 % Normal 11.5-15.5 [facility] ([place]) Comment on above: Performed By: #### L MTR, AMM, ADIFF, ANEU, ESR, CBC, TSH, CMP, GFR, MG ####[place] [address] Hematocrit (Bld) [Volume fraction] 39.9 % Low 40.0-52.0 [facility] ([place]) Comment on above: Performed By: #### L MTR, AMM, ADIFF, ANEU, ESR, CBC, TSH, CMP, GFR, MG ####[place] [address] Hgb 13.5 G/dL Normal 13.0-17.5 [facility] ([place]) Comment on above: Performed By: #### L MTR, AMM, ADIFF, ANEU, ESR, CBC, TSH, CMP, GFR, MG ####[place] [address] MCH (RBC) [Entitic mass] 33.8 pg High 27.0-33.0 [facility] ([place]) Comment on above: Performed By: #### L MTR, AMM, ADIFF, ANEU, ESR, CBC, TSH, CMP, GFR, MG ####[address] [address] MCHC 33.8 G/dL Normal 32.0-36.0 [facility] ([place]) Comment on above: Performed By: #### L MTR, AMM, ADIFF, ANEU, ESR, CBC, TSH, CMP, GFR, MG ####[place] [address] MCV (RBC) [Entitic vol] 99.9 fL Normal 81.0-100.0 [facility] ([place]) Comment on above: Performed By: #### L MTR, AMM, ADIFF, ANEU, ESR, CBC, TSH, CMP, GFR, MG ####[place] [address] Platelet 295 10 3/mcL Normal 150-450 [facility] ([place]) Comment on above: Performed By: #### L MTR, AMM, ADIFF, ANEU, ESR, CBC, TSH, CMP, GFR, MG ####[place] [address] Platelet mean volume (Bld) [Entitic vol] 8.4 fL Normal 6.4-10.5 [facility] ([place]) Comment on above: Performed By: #### L MTR, AMM, ADIFF, ANEU, ESR, CBC, TSH, CMP, GFR, MG ####[place] [address] RBC 4.00 10 6/mcL Low 4.50-6.00 [facility] ([place]) Comment on above: Performed By: #### L MTR, AMM, ADIFF, ANEU, ESR, CBC, TSH, CMP, GFR, MG ####[place] [address] WBC 11.4 10 3/mcL High 4.5-10.8 [facility] ([place]) Comment on above: Performed By: #### L MTR, AMM, ADIFF, ANEU, ESR, CBC, TSH, CMP, GFR, MG ####[place] [address] CMPon 09-13-2022 Albumin Level 3.2 G/dL Normal 3.2-4.8 [facility] ([place]) Comment on above: Performed By: #### L MTR, AMM, ADIFF, ANEU, ESR, CBC, TSH, CMP, GFR, MG ####[place] [address] Albumin/Globulin [Mass ratio] 1.3 {ratio} Normal 0.9-1.6 [facility] ([place]) Comment on above: Performed By: #### L MTR, AMM, ADIFF, ANEU, ESR, CBC, TSH, CMP, GFR, MG ####[place] [address] ALP [Catalytic activity/Vol] 72 U/L Normal 38-126 [facility]) Comment on above: Performed By: #### L MTR, AMM, ADIFF, ANEU, ESR, CBC, TSH, CMP, GFR, MG ####[place] [id number] ALT [Catalytic activity/Vol] 7 U/L Low 12-55 [facility]) Comment on above: Performed By: #### L MTR, AMM, ADIFF, ANEU, ESR, CBC, TSH, CMP, GFR, MG ####[place] [id number] AST [Catalytic activity/Vol] 12 U/L Normal 8-34 [facility] ([place]) Comment on above: Performed By: #### L MTR, AMM, ADIFF, ANEU, ESR, CBC, TSH, CMP, GFR, MG ####[place] [address] Bili Total 0.50 mg/dL Normal 0.20-1.20 [facility] ([place]) Comment on above: Result Comment: Use of this assay is not recommended for patients undergoing treatment with eltrombopag due to the potential for falsely elevated results. Performed By: #### L MTR, AMM, ADIFF, ANEU, ESR, CBC, TSH, CMP, GFR, MG ####[place] [address] BUN/Creatinine Ratio 19.0 ratio Normal 10.0-22.0 [facility] ([place]) Comment on above: Performed By: #### L MTR, AMM, ADIFF, ANEU, ESR, CBC, TSH, CMP, GFR, MG ####[place] [address] Calcium [Mass/Vol] 8.8 mg/dL Normal 8.7-10.4 [facility] ([place]) Comment on above: Performed By: #### L MTR, AMM, ADIFF, ANEU, ESR, CBC, TSH, CMP, GFR, MG ####[place] [address] Chloride [Moles/Vol] 110 mmol/L Normal 98-110 [facility] ([place]) Comment on above: Performed By: #### L MTR, AMM, ADIFF, ANEU, ESR, CBC, TSH, CMP, GFR, MG ####[place] [address] CO2 [Moles/Vol] 30 mmol/L Normal 22-32 [facility] ([place]) Comment on above: Performed By: #### L MTR, AMM, ADIFF, ANEU, ESR, CBC, TSH, CMP, GFR, MG ####[place] [address] Creatinine [Mass/Vol] 0.84 mg/dL Normal 0.60-1.40 [facility] ([place]) Comment on above: Performed By: #### L MTR, AMM, ADIFF, ANEU, ESR, CBC, TSH, CMP, GFR, MG ####[place] [address] Electrolyte Balance 0.0 mEq/L Low 4.0-15.0 [facility] ([place]) Comment on above: Performed By: #### L MTR, AMM, ADIFF, ANEU, ESR, CBC, TSH, CMP, GFR, MG ####[place] [address] Globulin 2.5 G/dL Normal 1.5-3.8 [facility] ([place]) Comment on above: Performed By: #### L MTR, AMM, ADIFF, ANEU, ESR, CBC, TSH, CMP, GFR, MG ####[address] [address] Glucose [Mass/Vol] 125 mg/dL High 82-115 [facility] ([place]) Comment on above: Performed By: #### L MTR, AMM, ADIFF, ANEU, ESR, CBC, TSH, CMP, GFR, MG ####[place] [address] Potassium [Moles/Vol] 4.2 mmol/L Normal 3.5-5.0 [facility] ([place]) Comment on above: Performed By: #### L MTR, AMM, ADIFF, ANEU, ESR, CBC, TSH, CMP, GFR, MG ####[place] [address] Sodium [Moles/Vol] 140 mmol/L Normal 136-145 [facility] ([place]) Comment on above: Performed By: #### L MTR, AMM, ADIFF, ANEU, ESR, CBC, TSH, CMP, GFR, MG ####[place] [address] Total Protein 5.7 G/dL Normal 5.7-8.2 [facility] ([place]) Comment on above: Result Comment: No te - New Reference Range in effect 19 Performed By: #### L MTR, AMM, ADIFF, ANEU, ESR, CBC, TSH, CMP, GFR, MG ####[place] [address] Urea nitrogen [Mass/Vol] 16.0 mg/dL Normal 8.0-22.0 [facility] ([place]) Comment on above: Performed By: #### L MTR, AMM, ADIFF, ANEU, ESR, CBC, TSH, CMP, GFR, MG ####[place] [address] DRUGSon 09-13-2022 Acetaminophen [Mass/Vol] ug/mL Low 10.0-20.0 [facility] ([place]) Comment on above: Performed By: #### A LC, DRUGS #### [place] [address] Ethanol Level <10.0 Normal [facility] ([place]) Comment on above: Performed By: #### A LC, DRUGS #### [place] [address] Salicylate Lvl (ds) <3.0 Low 10.0-25.0 [facility] ([place]) Comment on above: Performed By: #### A LC, DRUGS #### [place] [address] Serum Drugs screened: See Below Normal l [facility] ([place]) Comment on above: Result Comment: This drug screen is a presumptive screening only. No confirmation will be performed unless requested. Drugs included in the ER serum drug screen are: Threshold Ethanol 10.0 mg/dL Salicylate 2.0 mg/dl Acetaminophen 2.0 mcg/mL Testing has been performed FOR MEDICAL PURPOSES ONLY. Performed By: #### A LC, DRUGS #### [place] [address] ESRon 09-13-2022 Erythrocyte Sed Rate 7 mm/hr Normal 0-20 [facility] ([place]) Comment on above: Performed By: #### L MTR, AMM, ADIFF, ANEU, ESR, CBC, TSH, CMP, GFR, MG ####[place] [address] LABORATORYOrdered By: Sujey woods on 09-13-2022 Acetaminophen [Mass/Vol] mcg/mL Invalid Interpretation Code 10.0 - 20.0 mcg/mL ADM SS Salicylates [Mass/Vol] mg/dL Invalid Interpretation Code 10.0 - 25.0 mg/dL ADM SS Serum Drugs screened: See Below (09/13/22 12:53 PM) Invalid Interpretation Code AH Chemistry S LABORATORYOrdered By: SYSTEM SYSTEM on 09-13-2022 Albumin BCP dye [Mass/Vol] 3.2 G/dL Invalid Interpretation Code 3.2 - 4.8 G/dL AH ADM SS Albumin/Globulin [Mass ratio] 1.3 {ratio} Invalid Interpretation Code 0.9 - 1.6 ratio AH ADM SS ALP [Catalytic activity/Vol] 72 U/L Invalid Interpretation Code 38 - 126 U/L ADM SS ALT No additional P-5'-P [Catalytic activity/Vol] 7 U/L Invalid Interpretation Code 12 - 55 U/L AH ADM SS Ammonia (P) [Moles/Vol] 25 umol/L Invalid Interpretation Code 11 - 32 mcmol/L AH ADM SS Comment on above: Result Comment: Spec imen slightly hemolyzed. AST [Catalytic activity/Vol] 12 U/L Invalid Interpretation Code 8 - 34 U/L ADM SS Basophils (Bld) [#/Vol] 0.1 103/mcL Invalid Interpretation Code 0.0 - 0.3 10^3/mcL Workflow SS Basophils/100 WBC (Bld) 0.6 % Invalid Interpretation Code 0.0 - 2.5 % Workflow SS Bilirubin [Mass/Vol] 0.50 mg/dL Invalid Interpretation Code 0.20 - 1.20 mg/dL ADM SS Calcium [Mass/Vol] 8.8 mg/dL Invalid Interpretation Code 8.7 - 10.4 mg/dL ADM SS Chloride [Moles/Vol] 110 mmol/L Invalid Interpretation Code 98 - 110 mEq/L ADM SS CO2 [Moles/Vol] 30 mmol/L Invalid Interpretation Code 22 - 32 mEq/L ADM SS Creatinine [Mass/Vol] 0.84 mg/dL Invalid Interpretation Code 0.60 - 1.40 mg/dL ADM SS Electrolyte Balance 0.0 mEq/L Invalid Interpretation Code 4.0 - 15.0 mEq/L ADM SS Eosinophils (Bld) [#/Vol] 0.6 103/mcL Invalid Interpretation Code 0.0 - 0.7 10^3/mcL Workflow SS Eosinophils/100 WBC (Bld) 5.3 % Invalid Interpretation Code 0.0 - 6.0 % Workflow SS Erythrocyte distribution width (RBC) [Ratio] 13.2 % Invalid Interpretation Code 11.5 - 15.5 % Workflow SS GFR/1.73 sq M.predicted among blacks MDRD (S/P/Bld) [Vol rate/Area] ml/min/1.73sqm Invalid Interpretation Code Chemistry S GFR/1.73 sq M.predicted among non-blacks MDRD (S/P/Bld) [Vol rate/Area] ml/min/1.73sqm Invalid Interpretation Code Chemistry S Globulin 2.5 G/dL Invalid Interpretation Code 1.5 - 3.8 G/dL ADM SS Glucose [Mass/Vol] 125 mg/dL Invalid Interpretation Code 82 - 115 mg/dL ADM SS Hematocrit (Bld) [Volume fraction] 39.9 % Invalid Interpretation Code 40.0 - 52.0 % AH Workflow SS Hemoglobin (Bld) [Mass/Vol] 13.5 G/dL Invalid Interpretation Code 13.0 - 17.5 G/dL AH Workflow SS Lymphocytes (Bld) [#/Vol] 5.6 103/mcL Invalid Interpretation Code 0.9 - 4.3 10^3/mcL AH Workflow SS Lymphocytes/100 WBC (Bld) 48.9 % Invalid Interpretation Code 20.0 - 40.0 % AH Workflow SS Magnesium [Mass/Vol] 1.9 mg/dL Invalid Interpretation Code 1.6 - 2.4 mg/dL ADM SS MCH (RBC) [Entitic mass] 33.8 pg Invalid Interpretation Code 27.0 - 33.0 pg AH Workflow SS MCHC 33.8 G/dL Invalid Interpretation Code 32.0 - 36.0 G/dL Workflow SS MCV (RBC) [Entitic vol] 99.9 fL Invalid Interpretation Code 81.0 - 100.0 fL Workflow SS Monocytes (Bld) [#/Vol] 0.7 103/mcL Invalid Interpretation Code 0.1 - 1.4 10^3/mcL Workflow SS Monocytes/100 WBC (Bld) 5.8 % Invalid Interpretation Code 2.0 - 13.0 % Workflow SS Neutrophils (Bld) [#/Vol] 4.5 103/mcL Invalid Interpretation Code 2.3 - 8.1 10^3/mcL AH Workflow SS Neutrophils/100 WBC (Bld) 39.4 % Invalid Interpretation Code 50.0 - 75.0 % Workflow SS Platelet mean volume (Bld) [Entitic vol] 8.4 fL Invalid Interpretation Code 6.4 - 10.5 fL Workflow SS Platelets (Bld) [#/Vol] 295 103/mcL Invalid Interpretation Code 150 - 450 10^3/mcL AH Workflow SS Potassium [Moles/Vol] 4.2 mmol/L Invalid Interpretation Code 3.5 - 5.0 mEq/L ADM SS Protein [Mass/Vol] 5.7 G/dL Invalid Interpretation Code 5.7 - 8.2 G/dL ADM SS RBC (Bld) [#/Vol] 4.00 106/mcL Invalid Interpretation Code 4.50 - 6.00 10^6/mcL AH Workflow SS Sodium [Moles/Vol] 140 mmol/L Invalid Interpretation Code 136 - 145 mEq/L AH ADM SS TSH Qn 1.888 mIU/mL Invalid Interpretation Code 0.550 - 4.780 mIU/mL AH ADM SS Urea nitrogen [Mass/Vol] 16.0 mg/dL Invalid Interpretation Code 8.0 - 22.0 mg/dL AH ADM SS Urea nitrogen/Creatinine [Mass ratio] 19.0 ratio Invalid Interpretation Code 10.0 - 22.0 ratio AH ADM SS WBC (Bld) [#/Vol] 11.4 103/mcL Invalid Interpretation Code 4.5 - 10.8 10^3/mcL AH Workflow SS LABORATORYOrdered By: Quiana Jacobson on 09-13-2022 ESR 15 minute reading (Bld) [Velocity] 7 mm/hr Invalid Interpretation Code 0 - 20 mm/hr AH Manual Heme SS LABORATORYOrdered By: FIONA YOLANDA CONTRIBUTOR_SYSTEM on 09-13-2022 Lamotrigine Lvl 2.5 UG/ML Invalid Interpretation Code 1.0-13.0UG/M L AH Sendouts SS Comment on above: Result Comment: This test was developed and its performance characteristics determined by [facility]'s Johnna JRamirez [facility] Pathology and Laboratory [facility] [place] ([facility]). It has not been cleared or approved by the FDA. -[facility] is regulated under CLIA as qualified to perform high-complexity testing. This test is used for clinical purposes. It should not be regarded as investigational or for research. Performed By: [facility] [address] [place] [address] Manager Power: Waqar Weldon III, M.D. CLIA#: [id number] Laboratory - Drug toxicology Ordered By: SYSTEM SYSTEM on 09-13-2022 Ethanol [Mass/Vol] mg/dL Invalid Interpretation Code AH ADM SS MGon 09-13-2022 Magnesium [Mass/Vol] 1.9 mg/dL Normal 1.6-2.4 [facility] ([place]) Comment on above: Performed By: #### L MTR, AMM, ADIFF, ANEU, ESR, CBC, TSH, CMP, GFR, MG ####[place] [address] TSHon 09-13-2022 TSH 1.888 mIU/mL Normal 0.550-4.780 [facility] ([place]) Comment on above: Result Comment: No te - New Reference Range in effect 19 Performed By: #### L MTR, AMM, ADIFF, ANEU, ESR, CBC, TSH, CMP, GFR, MG ####[address] [address] .Auto Diffon 09-12-2022 Basophil, Absolute 0.1 10 3/mcL Normal 0.0-0.2 [facility] ([place]) Comment on above: Performed By: #### A LC, DRUGS #### [address] [address] Basophils/100 WBC (Bld) 0.9 % Normal 0.0-2.5 [facility] ([place]) Comment on above: Performed By: #### A LC, DRUGS #### [address] [address] Eosinophil, Absolute 0.6 10 3/mcL High 0.0-0.4 [facility] ([place]) Comment on above: Performed By: #### A LC, DRUGS #### [address] [address] Eosinophils/100 WBC (Bld) 6.3 % Normal 0.0-7.0 [facility] ([place]) Comment on above: Performed By: #### A LC, DRUGS #### [address] [address] Lymphocyte, Absolute 3.7 10 3/mcL Normal 0.8-3.9 [facility] ([place]) Comment on above: Performed By: #### A LC, DRUGS #### [address] [address] Lymphocytes/100 WBC (Bld) 37.8 % Normal 10.0-50.0 [facility] ([place] Comment on above: Performed By: #### A LC, DRUGS #### [address] [address] Monocyte, Absolute 0.6 10 3/mcL Normal 0.2-1.0 [facility] ([place]) Comment on above: Performed By: #### A LC, DRUGS #### [address] [address] Monocytes/100 WBC (Bld) 5.6 % Normal 1.7-13.0 [facility] ([place]) Comment on above: Performed By: #### A LC, DRUGS #### [address] [address] Neutrophils/100 WBC (Bld) 49.4 % Normal 37.0-80.0 [facility] ([place]) Comment on above: Performed By: #### A LC, DRUGS #### [address] [address] .GFRon 09-12-2022 GFR Non- 69 ml/min/1.73sqm Normal [facility] ([place]) Comment on above: Result Comment: GFR Population mean for , Non- Americans Ages 20-29 = 116 mL/min/1.73 sq.m. Ages 30-39 = 107 mL/min/1.73 sq.m. Ages 40-49 = 99 mL/min/1.73 sq.m. Ages 50-59 = 93 mL/min/1.73 sq.m. Ages 60-69 = 85 mL/min/1.73 sq.m. Ages 70+ = 75 mL/min/1.73 sq.m. Chronic Kidney Disease: Less than 60 mL/min/1.73 square meters End Stage Renal Disease: Less than 15 mL/min/1.73 square meters Performed By: #### A LC, DRUGS #### [address] [address] GFR 83 ml/min/1.73sqm Normal [facility] ([place]) Comment on above: Result Comment: GFR Population mean for , Non- Americans Ages 20-29 = 116 mL/min/1.73 sq.m. Ages 30-39 = 107 mL/min/1.73 sq.m. Ages 40-49 = 99 mL/min/1.73 sq.m. Ages 50-59 = 93 mL/min/1.73 sq.m. Ages 60-69 = 85 mL/min/1.73 sq.m. Ages 70+ = 75 mL/min/1.73 sq.m. Chronic Kidney Disease: Less than 60 mL/min/1.73 square meters End Stage Renal Disease: Less than 15 mL/min/1.73 square meters Performed By: #### A LC, DRUGS #### [address] [address] .MDWon 09-12-2022 Monocyte Distribution Width 19.86 Normal 0.00-20.00 [facility] ([place]) Comment on above: Result Comment: For ED adult patients suspected of sepsis, MDW<=20.0 does not rule out sepsis or risk of sepsis Performed By: #### A LC, DRUGS #### [place] [address] .NEUABSon 09-12-2022 Neutrophil, Absolute 4.9 10 3/mcL Normal 2.9-6.2 [facility] ([place]) Comment on above: Performed By: #### A LC, DRUGS #### [place] [address] BMPon 09-12-2022 BUN/Creatinine Ratio 19 ratio Normal 7-27 [facility] ([place]) Comment on above: Performed By: #### A LC, DRUGS #### [place] [address] Calcium [Mass/Vol] 9.3 mg/dL Normal 8.4-10.2 [facility] ([place]) Comment on above: Performed By: #### A LC, DRUGS #### [place] [id number] Chloride [Moles/Vol] 105 mmol/L Normal 98-107 [facility] ([place]) Comment on above: Performed By: #### A LC, DRUGS #### [place] [id number] CO2 [Moles/Vol] 32 mmol/L High 23-31 [facility] ([place]) Comment on above: Performed By: #### A LC, DRUGS #### [place] [address] Creatinine [Mass/Vol] 1.07 mg/dL Normal 0.70-1.30 [facility] ([place]) Comment on above: Performed By: #### A LC, DRUGS #### [address] [address] Electrolyte Balance 5.0 mEq/L Normal 4.0-15.0 [facility] ([place]) Comment on above: Performed By: #### A LC, DRUGS #### [address] [address] Glucose [Mass/Vol] 112 mg/dL Normal 80-115 [facility] ([place]) Comment on above: Performed By: #### A LC, DRUGS #### [address] [address] Potassium [Moles/Vol] 4.6 mmol/L Normal 3.5-5.1 [facility] ([place]) Comment on above: Performed By: #### A LC, DRUGS #### [address] [address] Sodium [Moles/Vol] 142 mmol/L Normal 136-145 [facility] ([place]) Comment on above: Performed By: #### A GUTIERREZ, DRUGS #### [address] [address] Urea nitrogen [Mass/Vol] 20 mg/dL High 7-18 [facility] ([place] Comment on above: Performed By: #### A GUTIERREZ, DRUGS #### [address] [address] CBCon 09-12-2022 Erythrocyte distribution width (RBC) [Ratio] 13.4 % Normal 11.5-14.5 [facility] ([place]) Comment on above: Performed By: #### A DANNY BENNETT ADIFF, BMP, MDW, CBC #### [address] [address] Hematocrit (Bld) [Volume fraction] 42.1 % Normal 42.0-52.0 [facility] ([place]) Comment on above: Performed By: #### A DONALD GFRSAW BMP, MDW, CBC #### [address] [address] Hgb 14.3 G/dL Normal 14.0-18.0 [facility] ([place] Comment on above: Performed By: #### A DONALD, GFR, ADIFF, BMP, MDW, CBC #### [address] [address] MCH (RBC) [Entitic mass] 33.5 pg High 27.0-31.2 [facility] ([place]) Comment on above: Performed By: #### A DONALD, GFR, ADIFF, BMP, MDW, CBC #### [address] [address] MCHC 34.0 G/dL Normal 31.8-35.4 [facility] ([place] Comment on above: Performed By: #### A DONALD, GFR, ADIFF, BMP, MDW, CBC #### [address] [address] MCV (RBC) [Entitic vol] 98.5 fL High 80.0-94.0 [facility] ([place]) Comment on above: Performed By: #### A DONALD, GFR, ADIFF, BMP, MDW, CBC #### [address] [address] Platelet 307 10 3/mcL Normal 130-400 [facility] ([place]) Comment on above: Performed By: #### A DONALD, GFR, ADIFF, BMP, MDW, CBC #### [address] [address] Platelet mean volume (Bld) [Entitic vol] 8.2 fL Normal 7.4-10.4 [facility] ([place]) Comment on above: Performed By: #### A DONALD, GFR, ADIFF, BMP, MDW, CBC #### [address] [address] RBC 4.27 10 6/mcL Normal 4.04-6.13 [facility] ([place] Comment on above: Performed By: #### A DONALD, GFR, ADIFF, BMP, MDW, CBC #### [address] [address] WBC 9.9 10 3/mcL Normal 4.6-10.8 [facility] ([place]) Comment on above: Performed By: #### A DANNY BENNETT ADIFF, CHICA, W, [facility] #### [place] [address] [place], [place] [address] CT HEAD OR BRAIN W/O CONTRAS Ton 09-12-2022 CT HEAD OR BRAIN W/O CONTRAST ORIGINAL EXAMINATION: CT OF THE HEAD WITHOUT CONTRAST09/12/2022 2:51 pm TECHNIQUE: CT of the head was performed without the administration of intravenous contrast. Automated exposure control, iterative reconstruction, and/or weight based adjustment of the mA/kV was utilized to reduce the radiation dose to as low as reasonably achievable. COMPARISON: None HISTORY: ORDERING SYSTEM PROVIDED HISTORY: Reason for Exam: AMS FINDINGS: There is an area of encephalomalacia in the right temporoparietal region most likely remote infarct. No acute territorial infarct, intracranial hemorrhage or mass effect is seen. No hydrocephalus. No pathologic calvarial abnormality. Visualized paranasal sinuses and mastoids are clear. Noncontributory orbital contents. Normal density in the superior sagittal sinus. IMPRESSION: No acute infarct or intracranial hemorrhage. Remote right cerebral infarct, correlate with history. COMMENT: Changes resultant from ischemia (even significant ischemia) may often be inapparent on CT exam, particularly if imaged early. Therefore, if symptoms persist, or clinical suspicion for pathology remains, further evaluation may be obtained with follow-up CT or MRI, as clinically feasible. Interpreted by: Justo Watkins MD Preliminary Report By: Justo Watkins MD Electronically signed By Justo Watkins MD Dictated Date: 09/12/2022 3:00:21 PM Prelim Date: 09/12/2022 3:01:50 PM Sign Date: 09/12/2022 3:01:50 PM Ordering Provider: SONDRA Fine [facility] ([place]) CT SPINE CERVICAL W/O CONTRA STohamlet 09-12-2022 CT SPINE CERVICAL W/O CONTRAST ORIGINAL EXAMINATION: CT OF THE CERVICAL SPINE WITHOUT CONTRAST 09/12/2022 2:52 pm TECHNIQUE: CT of the cervical spine was performed without the administration of intravenous contrast. Multiplanar reformatted images are provided for review. Automated exposure control, iterative reconstruction, and/or weight based adjustment of the mA/kV was utilized to reduce the radiation dose to as low as reasonably achievable. COMPARISON: CT head same day. HISTORY: ORDERING SYSTEM PROVIDED HISTORY: Reason for Exam: Altered mental status trauma, patient fell from tree, weakness FINDINGS: BONES/ALIGNMENT: There is reversal of the normal cervical lordosis. There is no acute fracture or traumatic malalignment. DEGENERATIVE CHANGES: Moderate multilevel degenerative changes, most pronounced at C5-C6. there is mild retrolisthesis at C5-6. There is mild to moderate central canal stenosis at this level and bilateral foraminal stenosis also. Mild central canal stenosis at a couple of other levels also. SOFT TISSUES: No prevertebral soft tissue swelling. Bilateral external auditory canal opacities, likely cerumen. Incidental hypodense left thyroid lobe nodule measures 1 cm; no imaging follow-up required. CT is quite insensitive for soft tissue pathology including intraspinal hemorrhage and cord injury. LUNGS: There is biapical scarring and emphysema. IMPRESSION: No acute fracture or dislocation is seen. Degenerative changes most prominent at C5-6 with central canal and foraminal stenosis. If clinical symptoms suggest injury to the cord, MRI should be considered since CT is quite insensitive for cord injury and intraspinal hemorrhage. I have personally reviewed the images of this examination and agree with the resident's findings and interpretations. RECOMMENDATIONS: 1 cm incidental left thyroid nodule. No follow-up imaging is recommended. Reference: J Am Daron Radiol. 2015 May;12(2): 143-50 Interpreted by: Justo Watkins MD Preliminary Report By: Aleksander Harris Electronically signed By Justo Watkins MD Dictated Date: 09/12/2022 3:09:27 PM Prelim Date: 09/12/2022 3:15:38 PM Sign Date: 09/12/2022 3:27:50 PM Ordering Provider: SONDRA HEARD Normal [facility] ([place]) [facility] 09-12-2022 Color (U) Yellow Normal [facility] ([place]) Comment on above: Performed By: #### U A #### [place] [address] [address] Glucose (U) [Mass/Vol] Negative Normal Negative [facility] ([place]) Comment on above: Performed By: #### U A #### [place] [address] [address] Ketones Ql (U) Negative Normal Negative [facility] ([place]) Comment on above: Performed By: #### U A #### [place] [id number] UA Appear Clear Normal Clear [facility] ([place]) Comment on above: Performed By: #### U A #### [place] [id number] UA Blood Negative Normal Negative [facility] ([place]) Comment on above: Performed By: #### U A #### [place] [address] UA Leuk Est Negative Normal Negative [facility] ([place]) Comment on above: Performed By: #### U A #### [place] [address] UA Nitrite Negative Normal Negative [facility] ([place]) Comment on above: Performed By: #### U A #### [place] [address] UA pH 6.0 Normal 5.0 - 8.0 [facility] ([place]) Comment on above: Performed By: #### U A #### [place] [address] UA Protein Negative Normal Negative [facility] ([place]) Comment on above: Performed By: #### U A #### [place] [address] UA Spec Grav 1.020 Normal 1.015-1.025 [facility] ([place]) Comment on above: Performed By: #### U A #### [place] [address] UA Specimen Type Clean Catch Normal [facility] ([place]) Comment on above: Performed By: #### U A #### [place] [address] UA Urobilinogen 0.2 E.U./dL Normal 0.2-1.0 [facility] ([place]) Comment on above: Performed By: #### U A #### [place] [id number] Urobilinogen (U) [Mass/Vol] Negative Normal Negative [facility] ([place]) Comment on above: Performed By: #### U A #### [place] [address] [place], [place] [address] Absolute lymphocyte countOrd ered By: Gregorio Garciaallie on 09-10-2022 Lymphocytes Auto (Unsp spec) [#/Vol] 4.88 10*3/uL 0.83-4.51 [facility] Basophil percentageOrdered B y: Gregorio Zachery on 09-10-2022 Basophil percentage 106 mg/dL 74-106 [facility] Basophil percentage 140 mmol/L 136-145 [facility] Basophil percentage 4.1 mmol/L 3.5-5.1 [facility] Basophil percentage 110 mmol/L 98-107 [facility] Basophils (Bld) [#/Vol] 10.5 10*3/uL 4.4-11.0 [facility] Basophils (Bld) [#/Vol] 4.0 10*3/uL 2.0-7.7 [facility] Basophils/100 WBC (Bld) 0.4 % 0-1 [facility] Basophils/100 WBC (Bld) 38.0 % 47-70 [facility] Basophils/100 WBC (Bld) 8.1 % 0-5 [facility] Chloride [Moles/Vol] 110 mmol/L 98-107 [facility] Eosinophils/100 WBC (Bld) 8.1 % 0-5 [facility] Glucose [Mass/Vol] 106 mg/dL 74-106 [facility] Comment on above: Fasting Glucose resu lt from 100 to 125 mg/dL suggests IMPAIRED HOMEOSTASIS per A.D.A. criteria. Neutrophils (Bld) [#/Vol] 4.0 10*3/uL 2.0-7.7 [facility] Neutrophils/100 WBC (Bld) 38.0 % 47-70 [facility] Potassium [Moles/Vol] 4.1 mmol/L 3.5-5.1 [facility] Sodium [Moles/Vol] 140 mmol/L 136-145 [facility] WBC (Bld) [#/Vol] 10.5 10*3/uL 4.4-11.0 [facility] Blood erythrocytes count (nu mber/volume)Ordered By: Gregorio Bingham on 09-10-2022 RBC (Bld) [#/Vol] 3.99 10*6/uL 4.6-6.2 [facility] Blood hemoglobin measurement (mass/volume)Ordered By: Gregorio Bingham on 09-10-2022 Hemoglobin (Bld) [Mass/Vol] 13.3 g/dL 13.0-16.5 [facility] Blood lymphocytes/100 leukoc ytesOrdered By: Gregorio Bingham on 09-10-2022 Lymphocytes/100 WBC (Bld) 46.4 % 19-41 [facility] Blood manual differential co mment interpretation (narrative result)Ordered By: Gregorio Bingham on 09-10-2022 Manual differential comment Bari (Bld) [Interp] SCANNED [facility] Blood monocytes/100 leukocyt esOrdered By: Gregorio Bingham on 09-10-2022 Monocytes/100 WBC (Bld) 6.8 % 0-10 [facility] Blood platelet mean volumeOr dered By: Gregorio Bingham on 09-10-2022 Platelet mean volume (Bld) [Entitic vol] 9.8 fL 6.2-12.0 [facility] Determination of erythrocyte mean corpuscular volume (MCV)Ordered By: Gregorio Bingham on 09-10-2022 MCV (RBC) [Entitic vol] 100.3 fL 80-94 [facility] Hematocrit Auto (Bld) [Volum e fraction]Ordered By: Gregorio Bingham on 09-10-2022 Hematocrit (Bld) [Volume fraction] 40.0 % 40-54 [facility] Laboratory - Chemistry and C hemistry - challengeOrdered By: Gregorio Bingham on 09-10-2022 CO2 [Moles/Vol] 27.0 mmol/L 21.0-32.0 [facility] Urea nitrogen/Creatinine [Mass ratio] 20.5 mg/mg 10-20 [facility] Laboratory - Hematology and Cell countsOrdered By: Gregorio Bingham on 09-10-2022 Erythrocyte distribution width (RBC) [Entitic vol] 46.6 fL 35.1-43.9 [facility] Erythrocyte distribution width (RBC) [Ratio] 12.6 % 11.6-14.6 [facility] Immature granulocytes/100 WBC (Bld) 0.300 % 0.0-0.9 [facility] Comment on above: IG% - Immature Granu locytes (promyelocytes, myelocytes and metamyelocytes) > 1% indicates that a LEFT SHIFT is Present. MCH (RBC) [Entitic mass] 33.3 pg 27.0-32.0 [facility] Nucleated RBC/100 WBC (Bld) [Ratio] 0 % 0-5 [facility] MCHC Auto (RBC) [Mass/Vol]Or dered By: Gregorio Bingham on 09-10-2022 MCHC (RBC) [Mass/Vol] 33.3 g/dL 32-36 [facility] No Panel InformationOrdered By: Gregorio Bingham on 09-10-2022 Atypical Lymphocytes 1+ % [facility] Estimated Creatinine Clearance Calc 59.70 ml/min [facility] Estimated GFR (MDRD) Amer 127 mL/min >60 [facility] Comment on above: GFR Calc Estimated GFR (MDRD) Non-Af Amer 105 mL/min >60 [facility] Comment on above: Non- GFR Calc Reactive Lymphocytes RARE [facility] Thyroid Stimulating Hormone (TSH) 2.30 uIU/mL 0.358-3.74 [facility] 33.3 pg 27.0-32.0 [facility] 12.6 % 11.6-14.6 [facility] 46.6 fl 35.1-43.9 [facility] 0.300 % 0.0-0.9 [facility] 0 % 0-5 [facility] 1+ % [facility] RARE [facility] 105 mL/min >60 [facility] 127 mL/min >60 [facility] 59.70 ml/min [facility] 20.5 RATIO 10-20 [facility] 27.0 mmol/L 21.0-32.0 [facility] 2.30 uIU/mL 0.358-3.74 [facility] Platelets bldOrdered By: Kuldip Bingham on 09-10-2022 Platelets (Bld) [#/Vol] 307 10*3/uL 150-450 [facility] Serum or plasma calcium sadi urement (mass/volume)Ordered By: Gregorio Bingham on 09-10-2022 Calcium [Mass/Vol] 8.6 mg/dL 8.5-10.1 [facility] Serum or plasma creatinine m easurement (mass/volume)Ordered By: Gregorio Bingham on 09-10-2022 Creatinine [Mass/Vol] 0.78 mg/dL 0.70-1.30 [facility] Comment on above: The validity of the calculated GFR & GFRAA in patients over 70 years has not been determined. Clinical correlation is essential. Serum or plasma urea nitroge n measurement (mass/volume)Ordered By: Gregorio Bingham on 09-10-2022 Urea nitrogen [Mass/Vol] 16 mg/dL 7-18 [facility] Thin prep Papanicolaou smear with manual screeningOrdered By: Gregorio Bingham on 09-10-2022 Thin prep Papanicolaou smear with manual screening 3 5-15 [facility] Laboratory - Drug toxicology Ordered By: Ashlee Salas on 09-09-2022 Amphetamines Ql (U) Negative <1000 ng/mL [facility] Benzodiazepines Ql (U) Negative < 200 ng/mL [facility] Cannabinoids Screen Ql (U) Negative < 50 ng/mL [facility] Cocaine Ql (U) Negative < 300 ng/mL [facility] Opiates Ql (U) Negative < 300 ng/mL [facility] No Panel InformationOrdered By: Ashlee Salas on 09-09-2022 MDMA (Ecstasy) Screen Negative < 500 ng/mL [facility] Urine Barbiturates Screen Positive < 200 ng/mL [facility] Urine Drug Screen Comment [facility] Comment on above: CONFIRMATORY TESTING FOR ALL POSITIVE URINE DRUG SCREENRESULTS WILL ONLY BE SENT OUT UPON PHYSICIAN ORDER. VISTA Urine Drug Screen methods provide only preliminaryanalytical test results. A more specific alternate chemicalmethod must be used in order to obtain a confirmedanalytical result. Gas chromatography/mass spectrometery(GC/MS) is the preferred confirmatory method. Clinicalconsideration and professional judgement should be appliedto any drug of abuse test result, particularly whenpreliminary positive results are used. URINE TCA TESTING MUST BE ORDERED SEPARATELY. USE TESTMNEMONIC: [facility] Urine Methadone Screen Negative < 300 ng/mL [facility] Negative < 50 ng/mL [facility] Positive < 200 ng/mL [facility] Ethyl Alcohol Level < 3.0 mg/dL [facility] Comment on above: The serum:whole bloo d ethanol ratio is approximately 1.14and varies slightly with hematocrit. Medical Alcohol reference interval and critical value innon-tolerant individuals; 50 - 100 Impairment 100 Intoxication 100 - 250 Severe Poisoning 250 - 400 Deep/possible fatal coma Troponin I High Sensitivity 6 pg/mL 3.0-78.0 [facility] Comment on above: Please Note: New Renay t Units and Gender Specific Reference Ranges. For more information see Policy Stat Procedure [place] High Sensitivity Troponin (TNIH) and attachments. 6 pg/mL 3.0-78.0 [facility] < 3.0 mg/dL [facility] Urine phencyclidine (PCP) de tectionOrdered By: Ashlee Salas on 09-09-2022 Phencyclidine Ql (U) Negative < 25 ng/mL [facility] Absolute lymphocyte counton 04-11-2022 Lymphocytes Auto (Unsp spec) [#/Vol] 4.36 10*3/uL 0.83-4.51 [facility] Work Phone: Basophil percentageon 2022 Basophils/100 WBC (Bld) 0.8 % 0-1 [facility] Work Phone: Chloride [Moles/Vol] 107 mmol/L 98-107 [facility] Work Phone: Eosinophils/100 WBC (Bld) 6.8 % 0-5 [facility] Work Phone: Glucose [Mass/Vol] 96 mg/dL 74-106 [facility] Work Phone: Neutrophils (Bld) [#/Vol] 4.1 10*3/uL 2.0-7.7 [facility] Work Phone: Neutrophils/100 WBC (Bld) 41.7 % 47-70 [facility] Work Phone: Potassium [Moles/Vol] 4.3 mmol/L 3.5-5.1 [facility] Work Phone: Sodium [Moles/Vol] 140 mmol/L 136-145 [place] [facility] Work Phone: WBC (Bld) [#/Vol] 10.0 10*3/uL 4.4-11.0 [facility]: Blood erythrocytes count (nu mber/volume)on 04-11-2022 RBC (Bld) [#/Vol] 4.09 10*6/uL 4.6-6.2 [facility] Work Phone: Blood hemoglobin measurement (mass/volume)on 04-11-2022 Hemoglobin (Bld) [Mass/Vol] 13.4 g/dL 13.0-16.5 [facility] Work Phone: Blood lymphocytes/100 leukoc yteson 04-11-2022 Lymphocytes/100 WBC (Bld) 43.8 % 19-41 [facility] Work Phone: Blood manual differential co mment interpretation (narrative result)on 04-11-2022 Manual differential comment Bari (Bld) [Interp] See comment [facility] Work Phone: Comment on above: AUTO DIFF [place] Blood monocytes/100 leukocyt eson 04-11-2022 Monocytes/100 WBC (Bld) 6.7 % 0-10 [facility] Work Phone: Blood platelet mean volumeon 04-11-2022 Platelet mean volume (Bld) [Entitic vol] 10.9 fL 6.2-12.0 [facility] Work Phone: Determination of erythrocyte mean corpuscular volume (MCV)on 04-11-2022 MCV (RBC) [Entitic vol] 97.3 fL 80-94 [facility] Work Phone: Hematocrit Auto (Bld) [Volum e fraction]on 04-11-2022 Hematocrit (Bld) [Volume fraction] 39.8 % 40-54 [facility] Work Phone: Laboratory - Chemistry and C hemistry - challengeon 04-11-2022 CO2 [Moles/Vol] 26.0 mmol/L 21.0-32.0 [facility] Work Phone: Urea nitrogen/Creatinine [Mass ratio] 17.0 mg/mg 10-20 [facility] Work Phone: Laboratory - Hematology and Cell countson 04-11-2022 Erythrocyte distribution width (RBC) [Entitic vol] 45.4 fL 35.1-43.9 [facility] Work Phone: Erythrocyte distribution width (RBC) [Ratio] 12.8 % 11.6-14.6 [facility] Work Phone: Immature granulocytes/100 WBC (Bld) 0.200 % 0.0-0.9 [facility] Work Phone: Comment on above: IG% - Immature Granu locytes (promyelocytes, myelocytes and metamyelocytes) > 1% indicates that a LEFT SHIFT is Present. MCH (RBC) [Entitic mass] 32.8 pg 27.0-32.0 [facility] Work Phone: Nucleated RBC/100 WBC (Bld) [Ratio] 0 % 0-5 [facility] Work Phone: MCHC Auto (RBC) [Mass/Vol]on 04-11-2022 MCHC (RBC) [Mass/Vol] 33.7 g/dL 32-36 [facility] Work Phone: No Panel Informationon 04-11 Estimated Creatinine Clearance Calc 71.51 ml/min [facility] Work Phone: Estimated GFR (MDRD) Amer 103 mL/min >60 [facility] Work Phone: Comment on above: GFR Calc Estimated GFR (MDRD) Non-Af Amer 85 mL/min >60 [facility] Work Phone: Comment on above: Non- GFR Calc Platelets bldon 04-11-2022 Platelets (Bld) [#/Vol] 275 10*3/uL 150-450 [facility] Work Phone: Serum or plasma calcium sadi urement (mass/volume)on 04-11-2022 Calcium [Mass/Vol] 8.6 mg/dL 8.5-10.1 [facility] Work Phone: Serum or plasma creatinine m easurement (mass/volume)on 04-11-2022 Creatinine [Mass/Vol] 0.94 mg/dL 0.70-1.30 [facility] Work Phone: Comment on above: The validity of the calculated GFR & GFRAA in patients over 70 years has not been determined. Clinical correlation is essential. Serum or plasma urea nitroge n measurement (mass/volume)on 04-11-2022 Urea nitrogen [Mass/Vol] 16 mg/dL 7-18 [facility] Work Phone: Thin prep Papanicolaou smear with manual screeningon 04-11-2022 Thin prep Papanicolaou smear with manual screening 7 5-15 [facility] Work Phone: Absolute lymphocyte counton 04-10-2022 Lymphocytes Auto (Unsp spec) [#/Vol] 5.55 10*3/uL 0.83-4.51 [facility] Work Phone: Basophil percentageon 2022 Basophils/100 WBC (Bld) 0.5 % 0-1 [facility] Work Phone: Bilirubin [Mass/Vol] 0.50 mg/dL 0.20-1.00 [facility] Work Phone: Comment on above: For patients on eltr ombopag therapy, use of Dimension [place] TBIL is not recommended. Chloride [Moles/Vol] 106 mmol/L 98-107 [facility] Work Phone: Eosinophils/100 WBC (Bld) 5.6 % 0-5 [facility] Work Phone: Glucose [Mass/Vol] 92 mg/dL 74-106 [facility] Work Phone: Neutrophils (Bld) [#/Vol] 5.7 10*3/uL 2.0-7.7 [facility] Work Phone: Neutrophils/100 WBC (Bld) 43.2 % 47-70 [facility] Work Phone: Potassium [Moles/Vol] 4.3 mmol/L 3.5-5.1 [facility] Work Phone: Protein [Mass/Vol] 7.0 g/dL 6.4-8.2 [facility] Work Phone: Sodium [Moles/Vol] 139 mmol/L 136-145 [facility] Work Phone: WBC (Bld) [#/Vol] 13.3 10*3/uL 4.4-11.0 [facility] Work Phone: Blood erythrocytes count (nu mber/volume)on 04-10-2022 RBC (Bld) [#/Vol] 4.43 10*6/uL 4.6-6.2 [facility] Work Phone: Blood hemoglobin measurement (mass/volume)on 04-10-2022 Hemoglobin (Bld) [Mass/Vol] 14.5 g/dL 13.0-16.5 [facility] Work Phone: Blood lymphocytes/100 leukoc yteson 04-10-2022 Lymphocytes/100 WBC (Bld) 41.9 % 19-41 [facility] Work Phone: [phone] Blood manual differential co mment interpretation (narrative result)on 04-10-2022 Manual differential comment Bari (Bld) [Interp] SCANNED [facility] Work Phone: Blood monocytes/100 leukocyt eson 04-10-2022 Monocytes/100 WBC (Bld) 8.5 % 0-10 [facility] Work Phone: Blood platelet mean volumeon 04-10-2022 Platelet mean volume (Bld) [Entitic vol] 10.1 fL 6.2-12.0 [facility] Work Phone: Determination of erythrocyte mean corpuscular volume (MCV)on 04-10-2022 MCV (RBC) [Entitic vol] 98.9 fL 80-94 [facility] Work Phone: Hematocrit Auto (Bld) [Volum e fraction]on 04-10-2022 Hematocrit (Bld) [Volume fraction] 43.8 % 40-54 [facility] Work Phone: Laboratory - Chemistry and C hemistry - challengeon 04-10-2022 ALP [Catalytic activity/Vol] 85 U/L 45-117 [facility] Work Phone: ALT [Catalytic activity/Vol] 20 U/L 16-61 [facility] Work Phone: CO2 [Moles/Vol] 29.0 mmol/L 21.0-32.0 [facility] Work Phone: Globulin (S) [Mass/Vol] 3.6 g/dL 2.2-4.2 [facility] Work Phone: Lipase [Catalytic activity/Vol] 55 U/L 73-393 [facility] Work Phone: Urea nitrogen/Creatinine [Mass ratio] 14.5 mg/mg 10-20 [facility] Work Phone: Laboratory - Hematology and Cell countson 04-10-2022 Erythrocyte distribution width (RBC) [Entitic vol] 46.5 fL 35.1-43.9 [facility] Work Phone: Erythrocyte distribution width (RBC) [Ratio] 12.8 % 11.6-14.6 [facility] Work Phone: Immature granulocytes/100 WBC (Bld) 0.300 % 0.0-0.9 [facility] Work Phone: Comment on above: IG% - Immature Granu locytes (promyelocytes, myelocytes and metamyelocytes) > 1% indicates that a LEFT SHIFT is Present. MCH (RBC) [Entitic mass] 32.7 pg 27.0-32.0 [facility] Work Phone: Nucleated RBC/100 WBC (Bld) [Ratio] 0 % 0-5 [facility] Work Phone: MCHC Auto (RBC) [Mass/Vol]on 04-10-2022 MCHC (RBC) [Mass/Vol] 33.1 g/dL 32-36 [facility] Work Phone: No Panel Informationon 04-10 Atypical Lymphocytes 1+ % [facility] Work Phone: Estimated Creatinine Clearance Calc 66.11 ml/min [facility] Work Phone: Estimated GFR (MDRD) Amer 100 mL/min >60 [facility] Work Phone: Comment on above: GFR Calc Estimated GFR (MDRD) Non-Af Amer 83 mL/min >60 [facility] Work Phone: Comment on above: Non- GFR Calc Platelets bldon 04-10-2022 Platelets (Bld) [#/Vol] 356 10*3/uL 150-450 [facility] Work Phone: Serum or plasma albumin said urement (mass/volume)on 04-10-2022 Albumin [Mass/Vol] 3.4 g/dL 3.2-5.0 [facility] Work Phone: Serum or plasma albumin/glob ulin mass ratioon 04-10-2022 Albumin/Globulin [Mass ratio] 0.9 {ratio} 0.9-2.4 [facility] Work Phone: Serum or plasma calcium sadi urement (mass/volume)on 04-10-2022 Calcium [Mass/Vol] 8.9 mg/dL 8.5-10.1 [facility] Work Phone: Serum or plasma creatinine m easurement (mass/volume)on 04-10-2022 Creatinine [Mass/Vol] 0.96 mg/dL 0.70-1.30 [facility] Work Phone: Comment on above: The validity of the calculated GFR & GFRAA in patients over 70 years has not been determined. Clinical correlation is essential. Serum or plasma urea nitroge n measurement (mass/volume)on 04-10-2022 Urea nitrogen [Mass/Vol] 14 mg/dL 7-18 [facility] Work Phone: Thin prep Papanicolaou smear with manual screeningon 04-10-2022 Thin prep Papanicolaou smear with manual screening 10 U/L 15-37 [facility] Work Phone: Thin prep Papanicolaou smear with manual screening 4 5-15 [facility] Work Phone: Basophil percentageon 2022 Bilirubin [Mass/Vol] 0.60 mg/dL 0.20-1.00 [facility] Work Phone: Comment on above: For patients on eltr ombopag therapy, use of Dimension [place] TBIL is not recommended. Chloride [Moles/Vol] 108 mmol/L 98-107 [facility] Work Phone: Glucose [Mass/Vol] 94 mg/dL 74-106 [facility] Work Phone: Potassium [Moles/Vol] 4.2 mmol/L 3.5-5.1 [facility] Work Phone: Protein [Mass/Vol] 6.9 g/dL 6.4-8.2 [facility] Work Phone: Sodium [Moles/Vol] 139 mmol/L 136-145 [facility] Work Phone: Laboratory - Chemistry and C hemistry - challengeon 04-08-2022 ALP [Catalytic activity/Vol] 87 U/L 45-117 [facility] Work Phone: ALT [Catalytic activity/Vol] 24 U/L 16-61 [facility] Work Phone: CO2 [Moles/Vol] 31.0 mmol/L 21.0-32.0 [facility] Work Phone: Globulin (S) [Mass/Vol] 3.5 g/dL 2.2-4.2 [facility] Work Phone: Urea nitrogen/Creatinine [Mass ratio] 13.0 mg/mg 10-20 [facility] Work Phone: No Panel Informationon 04-08 Estimated GFR (MDRD) Amer 96 mL/min >60 [facility] Work Phone: Comment on above: GFR Calc Estimated GFR (MDRD) Non-Af Amer 79 mL/min >60 [facility] Work Phone: Comment on above: Non- GFR Calc Serum or plasma albumin sadi urement (mass/volume)on 04-08-2022 Albumin [Mass/Vol] 3.4 g/dL 3.2-5.0 [facility] Work Phone: Serum or plasma albumin/glob ulin mass ratioon 04-08-2022 Albumin/Globulin [Mass ratio] 1.0 {ratio} 0.9-2.4 [facility] Work Phone: Serum or plasma calcium sadi urement (mass/volume)on 04-08-2022 Calcium [Mass/Vol] 9.2 mg/dL 8.5-10.1 [facility] Work Phone: Serum or plasma creatinine m easurement (mass/volume)on 04-08-2022 Creatinine [Mass/Vol] 1.00 mg/dL 0.70-1.30 [facility] Work Phone: Comment on above: The validity of the calculated GFR & GFRAA in patients over 70 years has not been determined. Clinical correlation is essential. Serum or plasma urea nitroge n measurement (mass/volume)on 04-08-2022 Urea nitrogen [Mass/Vol] 13 mg/dL 7-18 [facility] Work Phone: Thin prep Papanicolaou smear with manual screeningon 04-08-2022 Thin prep Papanicolaou smear with manual screening 12 U/L 15-37 [facility] Work Phone: Thin prep Papanicolaou smear with manual screening 0 5-15 [facility] Work Phone: CT MAXILLOFACIAL WO IV CONTR Sami 02-06-2022 CT MAXILLOFACIAL WO IV CONTRAST [id number] Ex[facility] Date/Time: 02/06/2022 13:21 Procedure: CT MAXILLOFACIAL WO IV CONTRAST Ordering Provider: SADLER MICHAEL Reason For Exam: CT FACIAL BONES WITHOUT CONTRAST CLINICAL INDICATION: Right-sided facial pain and swelling after trauma Axial CT images of the facial bones were obtained without intravenous contrast. Coronal reformatted images were also made available for interpretation. COMPARISON: None. FINDINGS: There is a mildly depressed fracture of the anterior wall of the right maxillary sinus, with up to approximately 5 mm posterior displacement of the fracture fragment. No additional fracture of the orbits or facial bones is identified. No fracture or dislocation of the mandible is seen. The nasal bone appears intact. There is fairly extensive subcutaneous emphysema which is predominantly within the right malar region extending into the right aspect of the neck and submental region, however also extends into the right tool and die designer and parapharyngeal spaces on the right. Small amount of subcutaneous emphysema is also noted within the left aspect of the neck and face. No clearly defined fluid collection is seen on this noncontrast examination. Scattered gas is noted within the left and right orbits. The globes and extraocular muscles appear intact. No intraorbital fluid collections are seen. There is a polyp or retention cyst at the floor the right maxillary sinus. The remainder of the paranasal sinuses are otherwise clear. The mastoid air cells appear clear. IMPRESSION: There is a small, mildly depressed fracture of the anterior wall of the right maxillary sinus. No additional fracture of the orbits or facial bones is identified. Extensive subcutaneous emphysema within the face, predominantly on the right as described above. No focal fluid collections are seen. Report Dictated on Electronically Signed By: Khalida Bingham Electronically Signed Date/Time: 02/06/2022 1:[address] [facility] Basophil percentageon 2021 Bilirubin [Mass/Vol] 0.40 mg/dL 0.20-1.00 [facility] Work Phone: Comment on above: For patients on eltr ombopag therapy, use of Dimension [place] TBIL is not recommended. Cholesterol [Mass/Vol] 121 mg/dL <200 [facility] Work Phone: Comment on above: <200 mg/dL Desirable 200-240 mg/dL Borderline >240 mg/dL High Risk Protein [Mass/Vol] 7.5 g/dL 6.4-8.2 [facility] Work Phone: Triglyceride [Mass/Vol] 73 mg/dL <199 [facility] Work Phone: Comment on above: The drugs N-Acetylcy steine and Metamizole may falsely depress this assay.Serum Triglycerides Reference Interval Normal <150 mg/dL Borderline high 150 - 199 mg/dL High 200 - 499 mg/dL Very High > or = 500 mg/dL Direct bilirubinon 2 Bilirubin.direct [Mass/Vol] 0.13 mg/dL 0.00-0.30 [facility] Work Phone: Laboratory - Chemistry and C hemistry - challengeon 01-14-2022 ALP [Catalytic activity/Vol] 89 U/L 45-117 [facility] Work Phone: ALT [Catalytic activity/Vol] 26 U/L 16-61 [facility] Work Phone: Globulin (S) [Mass/Vol] 3.8 g/dL 2.2-4.2 [facility] Work Phone: T4 [Mass/Vol] 9.2 ug/dL 4.5-12.1 [facility] Work Phone: No Panel Informationon 01-14 Thyroid Stimulating Hormone (TSH) 1.90 uIU/mL 0.358-3.74 [facility] Work Phone: Serum or plasma albumin sadi urement (mass/volume)on 01-14-2022 Albumin [Mass/Vol] 3.7 g/dL 3.2-5.0 [facility] Work Phone: Serum or plasma cholesterol in HDL measurement (mass/volume)on 01-14-2022 Cholesterol in HDL [Mass/Vol] 63 mg/dL >40 [facility] Work Phone: Comment on above: The drugs N-Acetylcy steine and Metamizole may falsely depress this assay. Reference Range HDL <40 mg/dL Low HDL Cholesterol HDL >or= 60 mg/dL High HDL Cholesterol Serum or plasma cholesterol in VLDL measurement (mass/volume)on 01-14-2022 Cholesterol in VLDL [Mass/Vol] 15 mg/dL 5-40 [facility] Work Phone: Serum or plasma low density lipoprotein (LDL) cholesterol measurement (mass/volume)on 01-14-2022 Cholesterol in LDL [Mass/Vol] 43 mg/dL 0-130 [facility] Work Phone: Thin prep Papanicolaou smear with manual screeningon 01-14-2022 Thin prep Papanicolaou smear with manual screening 15 U/L 15-37 [facility] Work Phone: Basophil percentageon 2021 Ammonia (P) [Moles/Vol] 23.0 umol/L 11-32 [facility] Work Phone: Bilirubin [Mass/Vol] 0.50 mg/dL 0.20-1.00 [facility] Work Phone: Comment on above: For patients on eltr ombopag therapy, use of [place] TBIL is not recommended. Chloride [Moles/Vol] 102 mmol/L 98-107 [facility] Work Phone: Glucose [Mass/Vol] 89 mg/dL 74-106 [facility] Work Phone: Potassium [Moles/Vol] 4.0 mmol/L 3.5-5.1 [facility] Work Phone: Protein [Mass/Vol] 7.2 g/dL 6.4-8.2 [facility] Work Phone: Sodium [Moles/Vol] 136 mmol/L 136-145 [facility] Work Phone: WBC (Bld) [#/Vol] 8.1 10*3/uL 4.4-11.0 [facility] Work Phone: Blood erythrocytes count (nu mber/volume)on 12-17-2021 RBC (Bld) [#/Vol] 4.52 10*6/uL 4.6-6.2 [facility] Work Phone: Blood hemoglobin measurement (mass/volume)on 12-17-2021 Hemoglobin (Bld) [Mass/Vol] 13.9 g/dL 13.0-16.5 [facility] Work Phone: Blood platelet mean volumeon 12-17-2021 Platelet mean volume (Bld) [Entitic vol] 10.0 fL 6.2-12.0 [facility] Work Phone: Determination of erythrocyte mean corpuscular volume (MCV)on 12-17-2021 MCV (RBC) [Entitic vol] 94.7 fL 80-94 [facility] Work Phone: Hematocrit Auto (Bld) [Volum e fraction]on 12-17-2021 Hematocrit (Bld) [Volume fraction] 42.8 % 40-54 [facility] Work Phone: Iron measurement (mass/mass) on 12-17-2021 Iron (Unsp spec) [Mass/Mass] 113 ug/dL 65-175 [facility] Work Phone: Laboratory - Chemistry and C hemistry - challengeon 12-17-2021 ALP [Catalytic activity/Vol] 88 U/L 45-117 [facility] Work Phone: ALT [Catalytic activity/Vol] 41 U/L 16-61 [facility] Work Phone: CO2 [Moles/Vol] 28.0 mmol/L 21.0-32.0 [facility] Work Phone: Cobalamin (Vitamin B12) [Mass/Vol] 543 pg/mL 211-911 [facility] Work Phone: Globulin (S) [Mass/Vol] 3.6 g/dL 2.2-4.2 [facility] Work Phone: Urea nitrogen/Creatinine [Mass ratio] 11.0 mg/mg 10-20 [facility] Work Phone: Laboratory - Hematology and Cell countson 12-17-2021 Erythrocyte distribution width (RBC) [Entitic vol] 52.6 fL 35.1-43.9 [facility] Work Phone: Erythrocyte distribution width (RBC) [Ratio] 15.1 % 11.6-14.6 [facility] Work Phone: MCH (RBC) [Entitic mass] 30.8 pg 27.0-32.0 [facility] Work Phone: MCHC Auto (RBC) [Mass/Vol]on 12-17-2021 MCHC (RBC) [Mass/Vol] 32.5 g/dL 32-36 [facility] Work Phone: No Panel Informationon 12-17 Estimated GFR (MDRD) Amer 96 mL/min >60 [facility] Work Phone: Comment on above: GFR Calc Estimated GFR (MDRD) Non-Af Amer 79 mL/min >60 [facility] Work Phone: Comment on above: Non- GFR Calc Platelets bldon 12-17-2021 Platelets (Bld) [#/Vol] 272 10*3/uL 150-450 [facility] Work Phone: Serum or plasma albumin sadi urement (mass/volume)on 12-17-2021 Albumin [Mass/Vol] 3.6 g/dL 3.2-5.0 [facility] Work Phone: Serum or plasma albumin/glob ulin mass ratioon 12-17-2021 Albumin/Globulin [Mass ratio] 1.0 {ratio} 0.9-2.4 [facility] Work Phone: Serum or plasma calcium sadi urement (mass/volume)on 12-17-2021 Calcium [Mass/Vol] 8.8 mg/dL 8.5-10.1 [facility] Work Phone: Serum or plasma creatinine m easurement (mass/volume)on 12-17-2021 Creatinine [Mass/Vol] 1.00 mg/dL 0.70-1.30 [facility] Work Phone: Comment on above: The validity of the calculated GFR & GFRAA in patients over 70 years has not been determined. Clinical correlation is essential. Serum or plasma ferritin simone surement (mass/volume)on 12-17-2021 Ferritin [Mass/Vol] 42 ng/mL 26-388 [facility] Work Phone: Serum or plasma folate measu rement (mass/volume)on 12-17-2021 Folate [Mass/Vol] 78.00 ng/mL 3.1-55.4 [facility] Work Phone: Serum or plasma lamotrigine measurement (mass/volume)on 12-17-2021 lamoTRIgine [Mass/Vol] 1.9 ug/mL 2.0-20.0 [facility] Work Phone: Comment on above: Detection Limit = 1. 0Performed at: - [address] [id number] Director: Fernando Madison MD, Phone: [phone] Serum or plasma urea nitroge n measurement (mass/volume)on 12-17-2021 Urea nitrogen [Mass/Vol] 11 mg/dL 7-18 [facility] Work Phone: Thin prep Papanicolaou smear with manual screeningon 12-17-2021 Thin prep Papanicolaou smear with manual screening 27 U/L 15-37 [facility] Work Phone: Thin prep Papanicolaou smear with manual screening 6 5-15 [facility] Work Phone: [facility] 11-06-2021 [facility] HNO ID: [id number] Author: Nelia Pierre RT(R) Service: Radiology Author Type: Technologist Type: [facility] Filed: 11/06/2021 1:59 PM Note Text: Radiology Service Progress Note PATIENT NAME: Radha Brennan DATE OF SERVICE: November 06, 2021 TIME: 1:59 PM PATIENT IDENTITY VERIFICATION COMPLETED USING TWO (2) IDENTIFIERS: Name and Date of confirmed by patient verbally and Name and Date of confirmed by identification band. FALL SCREENING: Has the patient had 2 falls in the last year or 1 fall with injury or currently using an Ambulatory Assistive Device (Walker, Cane, Wheelchair, Crutches, etc.)? Yes, Patient High Risk for Falls What interventions were put in place to prevent falls during this visit? Yellow Falls Risk Wristband Applied, Instructed Patient to Remain Seated (Not on Exam Table) Until Exam and Increased Observations by Caregivers PATIENT GENDER DATA: Male PATIENT RELEVANT IMPLANT DATA REVIEWED: Not Applicable RADIOLOGY DEPARTMENT: General X-ray: Exam(s) Completed: Chest X-Ray PERIPHERAL IV DATA: Not applicable SIGNED BY: RT Louisa(R) November 06, 2021 1:59 PM [facility] CNOVon 11-06-2021 CNOV Office Visit (CR CC) -- BRENNANRADHA GORMAN ([id number]) 1955 M Date Time Provider Department 11/06/21 2:00 PM LNIDA WINKLER During your visit today, we recorded the following information about you: Pulse Respiration Blood pressure Weight 68/minute 16/minute 118/64 60.3 kg Height 1.74 m Linda Winkler APRN.[employer] 11/06/2021 3:11 PM Signed HPI: Radha Brennan is a 66 year old male with PMH?of coronary artery disease, hyperlipidemia,?prior CVA, seizure disorder, atrial septal aneurysm,?ongoing and prolonged tobacco use (1.5 packs of series per day, started age 5).??In 2018, he?underwent stenting with drug-eluting stents to the left anterior descending artery and second diagonal branch?after?presenting with anginal symptoms. ?He presented earlier this year?with unstable anginal symptoms, underwent cardiac catheterization and was?found to have severe multivessel disease include involving the LAD, D1, D2 ? He?underwent CABG x [address] Dominguez on 09/21/2021. (GRAFTS:?RIBEIRO in situ mammary end to side mid LAD,?Vein graft ascending aorta end to side diagonal 2,?ELIEL ascending aorta end to side diagonal 1). He did return to OR shortly after transfer to CVICU for increased chest tube output. A small area of arterial bleeding was identified in the L chest.?Bleeding was controlled and he returned in stable condition to CVICU, where he was extubated on POD1?. On POD 1 (09/22),?he had a convulsive seizure lasting 15 minutes, relieved with ativan, no recurrence.?On POD 2 (09/23), he?required a blood transfusion and also episode of atrial fibrillation?which resolved with medical therapy. On POD 4,?he was?found to have fluid around his?left lung, eventually requiring CT placement on POD 6 which was removed shortly thereafter.?He continued to recover without issue and was?deemed stable for discharge one week after surgery with [facility] ? At his 1 week post hospital [place] follow up visit (walked in to this appointment, accompanied by his lady friend, from the parking garage all the way to the office. When he arrived to the office waiting room, he shares that he started experiencing sharp left sided chest pain 8/10. He was brought back to the exam room for evaluation, and reported after 10 minutes or so of rest that it had subsided to a dull left pectoral ache 2/10. Denies SOB. Endorses chronic cough. Continues to smoke 1 PPD. Admits he has been walking around the [place], brief shorter walks. Attempted 1/2 lap around the [place] and experienced similar symptoms that subsided with rest. At the time of this evaluation he was noted to have significant bilateral hand tremors that he admits he gets when he is in pain. Manual BP left arm 110/60, HR 80. Repeat BP automatic cuff 110/60, 100% on RA, RR 16. He remained with pink, warm, dry skin. EKG revealed SR 77 NSR, possible ZEB, t wave abnormality (inversion) to lateral leads (V4, V5, V6). Dr. Dominguez was in to examine patient. Compared previous EKG from 09/22/21. After about 20 minutes of rest, Radha denied any further discomfort.) ? We resumed flexeril, counselled on smoking cessation, and modified activity, and requested he return to office in 1 week for follow up. At follow up he reported feeling much better in general. Walking about half trip around [facility]- 150 ft, then rests and resumes walk. Tolerating this without any chest pain, palpitations, shortness of breath. Continues to smoke 1/2 PPD. Stopped flexeril after a couple doses, thinks it may be contributing to nightmares. Interval events: [place] [place] [facility] two weeks ago for left forearm and upper arm pain, tells me he was diagnosed with blood clots to left arm, but was advised no new treatments given that he is already on ASA and Plavix. No record available for review at this time. Continues to ambulate around [facility] without CP/palp/sob. Continues to smoke Radha Michelle Brennan reports home recovery as listed below: Episodes of dizziness or syncope: no Chest pain: some anterior chest muscular skeletal discomfort Palpitations: no BP: reviewed per home log: not available Tolerating diet well without changing bowel habits: yes Fever, chills: no Activities at home with/without SOB or FREEMAN: walks as noted above Post surgical pain with pain medications - tolerable with PRN flexeril which he resumed and tylenol. Leg edema: none Sleep: good Energy: good Subjective: Current Outpatient Medications Medication Sig - cyclobenzaprine (FLEXERIL) 5 mg tablet Take 1 tablet by mouth three times daily as needed for muscle spasm. 09/30/21 NOT TAKING (Patient taking differently: Take 1 tablet by mouth three times daily as needed for muscle spasm.) - lidocaine (SALONPAS) 4 % patch Apply 1 Patch as directed once daily. - magnesium oxide (MAG-OX) 400 mg (241.3 mg magnesium) tablet Take 1 (more content not included)... Normal [facility] XR CHEST 2V FRONTAL/LATon XR CHEST 2V FRONTAL/LAT * * *Final Report* * * DATE OF EXAM: Nov 06 2021 2:02PM [id number] [id number] - XR CHEST 2V FRONTAL/LAT / PROCEDURE REASON: S/P CABG x 3 * * * * Physician Interpretation * * * * EXAMINATION: CHEST RADIOGRAPH (2 VIEW FRONTAL and LATERAL) CLINICAL HISTORY: S/P CABG x 3 MQ: [id number] EXAM DATE/TIME: 11/06/2021 2:02 PM COMPARISON: 10/21/2021. RESULT: Lines, tubes, and devices: None. Lungs and pleura: Small to moderate left pleural effusion with adjacent patchy airspace opacities. No pneumothorax. Cardiomediastinal silhouette: Stable cardiomediastinal silhouette. Status post new sternotomy. Bones and soft tissues: Degenerative changes are present within the thoracic spine. IMPRESSION: Small to moderate left pleural effusion with adjacent infiltrates and/or atelectasis. No significant change. Manager [facility] Transcribe Date/Time: Nov 09 2021 10:53A Dictated by : BUBBA PITTMAN MD This examination was interpreted and the report reviewed and electronically signed by: BUBBA PITTMAN MD on Nov 09 2021 10:54AM EST [id number] Normal [facility] Absolute lymphocyte counton 10-29-2021 Lymphocytes Auto (Unsp spec) [#/Vol] 3.43 10*3/uL 0.83-4.51 [facility] Work Phone: Basophil percentageon 2021 Basophils/100 WBC (Bld) 0.6 % 0-1 [facility] Work Phone: Chloride [Moles/Vol] 101 mmol/L 98-107 [facility] Work Phone: Eosinophils/100 WBC (Bld) 8.1 % 0-5 [facility] Work Phone: Glucose [Mass/Vol] 115 mg/dL 74-106 [facility] Work Phone: Comment on above: Fasting Glucose resu lt from 100 to 125 mg/dL suggests IMPAIRED HOMEOSTASIS per A.D.A. criteria. Neutrophils (Bld) [#/Vol] 5.3 10*3/uL 2.0-7.7 [facility] Work Phone: Neutrophils/100 WBC (Bld) 49.2 % 47-70 [facility] Work Phone: Potassium [Moles/Vol] 4.3 mmol/L 3.5-5.1 [facility] Work Phone: Sodium [Moles/Vol] 136 mmol/L 136-145 [facility] Work Phone: WBC (Bld) [#/Vol] 10.8 10*3/uL 4.4-11.0 [facility] Work Phone: Blood erythrocytes count (nu mber/volume)on 10-29-2021 RBC (Bld) [#/Vol] 3.73 10*6/uL 4.6-6.2 [facility] Work Phone: Blood hemoglobin measurement (mass/volume)on 10-29-2021 Hemoglobin (Bld) [Mass/Vol] 11.3 g/dL 13.0-16.5 [facility] Work Phone: Blood lymphocytes/100 leukoc yteson 10-29-2021 Lymphocytes/100 WBC (Bld) 31.8 % 19-41 [facility] Work Phone: Blood manual differential co mment interpretation (narrative result)on 10-29-2021 Manual differential comment Bari (Bld) [Interp] SCANNED [facility] Work Phone: Comment on above: AUTO DIFF OK Blood monocytes/100 leukocyt eson 10-29-2021 Monocytes/100 WBC (Bld) 10.0 % 0-10 [facility] Work Phone: Blood platelet mean volumeon 10-29-2021 Platelet mean volume (Bld) [Entitic vol] 9.3 fL 6.2-12.0 [facility] Work Phone: Determination of erythrocyte mean corpuscular volume (MCV)on 10-29-2021 MCV (RBC) [Entitic vol] 93.6 fL 80-94 [facility] Work Phone: Hematocrit Auto (Bld) [Volum e fraction]on 10-29-2021 Hematocrit (Bld) [Volume fraction] 34.9 % 40-54 [facility] Work Phone: Laboratory - Chemistry and C hemistry - challengeon 10-29-2021 CO2 [Moles/Vol] 31.0 mmol/L 21.0-32.0 [facility] Work Phone: Urea nitrogen/Creatinine [Mass ratio] 17.5 mg/mg 10-20 [facility] Work Phone: Laboratory - Hematology and Cell countson 10-29-2021 Erythrocyte distribution width (RBC) [Entitic vol] 48.3 fL 35.1-43.9 [facility] Work Phone: Erythrocyte distribution width (RBC) [Ratio] 14.1 % 11.6-14.6 [facility] Work Phone: Immature granulocytes/100 WBC (Bld) 0.300 % 0.0-0.9 [facility] Work Phone: Comment on above: IG% - Immature Granu locytes (promyelocytes, myelocytes and metamyelocytes) > 1% indicates that a LEFT SHIFT is Present. MCH (RBC) [Entitic mass] 30.3 pg 27.0-32.0 [facility] Work Phone: Nucleated RBC/100 WBC (Bld) [Ratio] 0 % 0-5 [facility] Work Phone: MCHC Auto (RBC) [Mass/Vol]on 10-29-2021 MCHC (RBC) [Mass/Vol] 32.4 g/dL 32-36 [facility] Work Phone: No Panel Informationon 10-29 Troponin I High Sensitivity 5 pg/mL 3.0-78.0 [facility] Work Phone: Comment on above: Please Note: New Renay t Units and Gender Specific Reference Ranges. For more information see Policy Stat Procedure [place] High Sensitivity Troponin (TNIH) and attachments. Estimated Creatinine Clearance Calc 68.98 ml/min [facility] Work Phone: Estimated GFR (MDRD) Amer 114 mL/min >60 [facility] Work Phone: Comment on above: GFR Calc Estimated GFR (MDRD) Non-Af Amer 95 mL/min >60 [facility] Work Phone: Comment on above: Non- GFR Calc Platelets bldon 10-29-2021 Platelets (Bld) [#/Vol] 472 10*3/uL 150-450 [facility] Work Phone: Serum or plasma calcium sadi urement (mass/volume)on 10-29-2021 Calcium [Mass/Vol] 9.0 mg/dL 8.5-10.1 [facility] Work Phone: Serum or plasma creatinine m easurement (mass/volume)on 10-29-2021 Creatinine [Mass/Vol] 0.86 mg/dL 0.70-1.30 [facility] Work Phone: Comment on above: The validity of the calculated GFR & GFRAA in patients over 70 years has not been determined. Clinical correlation is essential. Serum or plasma urea nitroge n measurement (mass/volume)on 10-29-2021 Urea nitrogen [Mass/Vol] 15 mg/dL 7-18 [facility] Work Phone: Thin prep Papanicolaou smear with manual screeningon 10-29-2021 Thin prep Papanicolaou smear with manual screening 4 5-15 [facility] Work Phone: [facility] RADHA BRENNAN ([id number]) 1955 M Date Time Provider Department 10/27/21 SUDHEER WILLIS During your visit today, we recorded the following information about you: Sudheer Willis RN 10/27/2021 7:41 AM Signed Linda Cathi; Patient has been discharged from skilled home health services as of 10/22/21. Nurse/teaching goals met. Thank you for allowing [facility] to serve your patient. Sudheer Willis RN Allergies As of Date: 10/27/2021 Noted Allergy Reaction TUBERCULIN, PURIFIED PROTEIN DERI*06/25/2021 7 - Swelling VENOM-HONEY BEE 06/25/2021 7 - Swelling Comments: Actually black and yellow bumble bees per pt Date Reviewed: 10/22/2021 Reviewed by: Bjorn Calvillo RN - Fully Assessed Reason for Visit: Home Care [4073] Cmt: notification of home health nursing discharge Prescriptions as of 10/27/2021 - cyclobenzaprine (FLEXERIL) 5 mg tablet Take 1 tablet by mouth three times daily as needed for muscle spasm. 09/30/21 NOT TAKING - amiodarone (PACERONE) 200 mg tablet Take 1 tablet by mouth once daily for 5 days, THEN 0.5 tablets once daily. - ascorbic acid, vitamin C, (VITAMIN C) 500 mg tablet Take 1 tablet by mouth once daily. - ferrous sulfate 325 mg (65 mg iron) tablet Take 1 tablet by mouth once daily. - folic acid 1 mg tablet Take 1 tablet by mouth once daily. - gabapentin (NEURONTIN) 100 mg capsule Take 2 capsules by mouth twice daily for 14 days. - lidocaine (SALONPAS) 4 % patch Apply 1 Patch as directed once daily. - nicotine (NICODERM) 21 mg/24 hr Apply 1 Patch as directed once daily for 14 days. - metoprolol tartrate, short acting, (LOPRESSOR) 25 mg tablet Take 1 tablet by mouth every 12 hours. - magnesium oxide (MAG-OX) 400 mg (241.3 mg magnesium) tablet Take 1 tablet by mouth once daily. - thiamine (VITAMIN B1) 100 mg tablet 1 tablet by ORAL/FEEDING TUBE route three times daily. - senna-docusate (SENNA-S) 8.6-50 mg per tablet Take 1 tablet by mouth twice daily. - food supplemt, lactose-reduced (BOOST BREEZE NUTRITIONAL) 0.04-1.05 gram-kcal/mL Take 1 Can by mouth twice daily for 14 days. - clopidogrel (PLAVIX) 75 mg tablet Take 75 mg by mouth once daily. - lamoTRIgine (LAMICTAL) 25 mg tablet Take 50 mg by mouth twice daily. - aspirin, enteric coated (ASPIRIN, ENTERIC COATED) 81 mg EC tablet Take 81 mg by mouth once daily. - primidone (MYSOLINE) 50 mg tablet Take 75 mg by mouth twice daily. - atorvastatin (LIPITOR) 40 mg tablet Take 40 mg by mouth once daily. - nitroglycerin sublingual (NITROQUICK) 0.4 mg SL tablet Dissolve 1 tablet under the tongue every 5 minutes as needed for Chest Pain. May of three doses. 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/15/2021 CAD in catawba artery [I25.10] 09/21/2021 Severe protein-calorie malnutrition (HCC) [E43] 09/22/2021 Nicotine use disorder, F17.2 [F17.200] 09/24/2021 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] 09/28/2021 Encounter Status:Closed by SUDHEER WILLIS on 10/27/21 [facility] Mike 10-22-2021 [facility] Telephone ([place]) -- RADHA BRENNAN ([id number]) 1955 M Date Time Provider Department 10/22/21 GREGORIO DOMINGUEZ During your visit today, we recorded the following information about you: Warren Luciano 10/22/2021 9:30 AM Signed [facility] phone [phone] fax [phone]. Orders, 10/16/21 office notes, discharge summary, operative report faxed on 10/22/21 Allergies As of Date: 10/22/2021 Noted Allergy Reaction TUBERCULIN, PURIFIED PROTEIN DERI*06/25/2021 7 - Swelling VENOM-HONEY BEE 06/25/2021 7 - Swelling Comments: Actually black and yellow bumble bees per pt Date Reviewed: 10/16/2021 Reviewed by: Soraya Flores LPN - Fully Assessed Reason for Visit: Cardiac Rehab [1425] Cmt: [facility] Prescriptions as of 10/22/2021 - cyclobenzaprine (FLEXERIL) 5 mg tablet Take 1 tablet by mouth three times daily as needed for muscle spasm. 09/30/21 NOT TAKING - amiodarone (PACERONE) 200 mg tablet Take 1 tablet by mouth once daily for 5 days, THEN 0.5 tablets once daily. - ascorbic acid, vitamin C, (VITAMIN C) 500 mg tablet Take 1 tablet by mouth once daily. - ferrous sulfate 325 mg (65 mg iron) tablet Take 1 tablet by mouth once daily. - folic acid 1 mg tablet Take 1 tablet by mouth once daily. - gabapentin (NEURONTIN) 100 mg capsule Take 2 capsules by mouth twice daily for 14 days. - lidocaine (SALONPAS) 4 % patch Apply 1 Patch as directed once daily. - nicotine (NICODERM) 21 mg/24 hr Apply 1 Patch as directed once daily for 14 days. - metoprolol tartrate, short acting, (LOPRESSOR) 25 mg tablet Take 1 tablet by mouth every 12 hours. - magnesium oxide (MAG-OX) 400 mg (241.3 mg magnesium) tablet Take 1 tablet by mouth once daily. - thiamine (VITAMIN B1) 100 mg tablet 1 tablet by ORAL/FEEDING TUBE route three times daily. - senna-docusate (SENNA-S) 8.6-50 mg per tablet Take 1 tablet by mouth twice daily. - food supplemt, lactose-reduced (BOOST BREEZE NUTRITIONAL) 0.04-1.05 gram-kcal/mL Take 1 Can by mouth twice daily for 14 days. - clopidogrel (PLAVIX) 75 mg tablet Take 75 mg by mouth once daily. - lamoTRIgine (LAMICTAL) 25 mg tablet Take 50 mg by mouth twice daily. - aspirin, enteric coated (ASPIRIN, ENTERIC COATED) 81 mg EC tablet Take 81 mg by mouth once daily. - primidone (MYSOLINE) 50 mg tablet Take 75 mg by mouth twice daily. - atorvastatin (LIPITOR) 40 mg tablet Take 40 mg by mouth once daily. - nitroglycerin sublingual (NITROQUICK) 0.4 mg SL tablet Dissolve 1 tablet under the tongue every 5 minutes as needed for Chest Pain. August of three doses. 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*09/15/2021 CAD in catawba artery [I25.10] 09/21/2021 Severe protein-calorie malnutrition (HCC) [E43] 09/22/2021 Nicotine use disorder, F17.2 [F17.200] 09/24/2021 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] 09/28/2021 Encounter Status:Closed by WARREN LUCIANO on 10/22/21 Normal [facility] Absolute lymphocyte counton 10-16-2021 Lymphocytes Auto (Unsp spec) [#/Vol] 3.90 10*3/uL 0.83-4.51 [facility] Work Phone: Basophil percentageon 2021 Basophils/100 WBC (Bld) 1.1 % 0-1 [facility] Work Phone: Chloride [Moles/Vol] 101 mmol/L 98-107 [facility] Work Phone: Eosinophils/100 WBC (Bld) 12.8 % 0-5 [facility] Work Phone: [phone] Glucose [Mass/Vol] 80 mg/dL 74-106 [facility] Work Phone: Neutrophils (Bld) [#/Vol] 5.7 10*3/uL 2.0-7.7 [facility] Work Phone: Neutrophils/100 WBC (Bld) 46.3 % 47-70 [facility] Work Phone: [phone] Potassium [Moles/Vol] 4.2 mmol/L 3.5-5.1 [facility] Work Phone: Sodium [Moles/Vol] 135 mmol/L 136-145 [facility] Work Phone: [phone] WBC (Bld) [#/Vol] 12.2 10*3/uL 4.4-11.0 [facility] Work Phone: Blood erythrocytes count (nu mber/volume)on 10-16-2021 RBC (Bld) [#/Vol] 3.34 10*6/uL 4.6-6.2 [facility] Work Phone: [phone] Blood hemoglobin measurement (mass/volume)on 10-16-2021 Hemoglobin (Bld) [Mass/Vol] 10.5 g/dL 13.0-16.5 [facility] Work Phone: [phone] Blood lymphocytes/100 leukoc yteson 10-16-2021 Lymphocytes/100 WBC (Bld) 32.0 % 19-41 [facility] Work Phone: Blood monocytes/100 leukocyt eson 10-16-2021 Monocytes/100 WBC (Bld) 7.5 % 0-10 [facility] Work Phone: Blood platelet mean volumeon 10-16-2021 Platelet mean volume (Bld) [Entitic vol] 9.0 fL 6.2-12.0 [facility] Work Phone: [phone] CNOVon 10-16-2021 [facility] RADHA BREN[facility] ([id number]) 1955 M Date Time Provider Department 10/16/21 2:00 PM LINDA WINKLER During your visit today, we recorded the following information about you: Pulse Respiration Blood pressure Weight 72/minute 16/minute 122/64 61.1 kg Height 1.74 m Linda Winkler APRN.[employer]ER 10/17/2021 12:33 PM Signed HPI: Radha Brennan is a 66 year old male with PMH of coronary artery disease, hyperlipidemia, prior CVA, seizure disorder, atrial septal aneurysm,?ongoing and prolonged tobacco use (1.5 packs of series per day, started age 5).??In 2018, he?underwent stenting with drug-eluting stents to the left anterior descending artery and second diagonal branch after presenting with anginal symptoms. ?He presented earlier this year with unstable anginal symptoms, underwent cardiac catheterization and was found to have severe multivessel disease include involving the LAD, D1, D2 ? He underwent CABG x [address] Dominguez on 09/21/2021. (GRAFTS: RIBEIRO in situ mammary end to side mid LAD, Vein graft ascending aorta end to side diagonal 2, ELIEL ascending aorta end to side diagonal 1). He did return to OR shortly after transfer to CVICU for increased chest tube output. A small area of arterial bleeding was identified in the L chest. Bleeding was controlled and he returned in stable condition to CVICU, where he was extubated on POD1 . On POD 1 (09/22), he had a convulsive seizure lasting 15 minutes, relieved with ativan, no recurrence. On POD 2 (09/23), he required a blood transfusion and also episode of atrial fibrillation which resolved with medical therapy. On POD 4, he was found to have fluid around his left lung, eventually requiring CT placement on POD 6 which was removed shortly thereafter. He continued to recover without issue and was deemed stable for discharge one week after surgery with [facility] At his 1 week post hospital [place] follow up visit (walked in to this appointment, accompanied by his lady friend, from the parking garage all the way to the office. When he arrived to the office waiting room, he shares that he started experiencing sharp left sided chest pain 11/11. He was brought back to the exam room for evaluation, and reported after 10 minutes or so of rest that it had subsided to a dull left pectoral ache /. Denies SOB. Endorses chronic cough. Continues to smoke 1 PPD. Admits [facility] brief shorter walks. Attempted 1/2 lap around the [facility] and experienced similar symptoms that subsided with rest. At the time of this evaluation he was noted to have significant bilateral hand tremors that he admits he gets when he is in pain. Manual BP left arm 110/60, HR 80. Repeat BP automatic cuff 110/60, 100% on RA, RR 16. He remained with pink, warm, dry skin. EKG revealed SR 77 NSR, possible ZEB, t wave abnormality (inversion) to lateral leads (V4, V5, V6). Dr. Dominguez was in to examine patient. Compared previous EKG from 09/22/21. After about 20 minutes of rest, Radha denied any further discomfort.) We resumed flexeril, counselled on smoking cessation, and modified activity, and requested he return to office in 1 week for follow up. Interval events: Reports feeling much better in general. Walking about half trip around [facility]- 150 ft, then rests and resumes walk. Tolerating this without any chest pain, palpitations, shortness of breath. Continues to smoke 1/2 PPD. Stopped flexeril after a couple doses, thinks it may be contributing to nightmares. Radha Michelle Brennan reports home recovery as listed below: Patient is c/o: left arm paresthesias- saw PCP for them last week Episodes of dizziness or syncope: no Chest pain: no Palpitations: no BP: reviewed per home log: not available but lady friend states around 115-140/x Tolerating diet well without changing bowel habits: yes, was having increased appetite for a few days since last visit, now at baseline with poor appetite. Continues with boost supplements Fever, chills: no Activities at home with/without SOB or FREEMAN: walks as noted above Post surgical pain with pain medications - relieved with PRN tylenol. Leg edema: no Sleep: improving Energy: improving Subjective: Current Outpatient Medications Medication Sig - cyclobenzaprine (FLEXERIL) 5 mg tablet Take 1 tablet by mouth three times daily as needed for muscle spasm. 09/30/21 NOT TAKING (Patient taking differently: Take 1 tablet by mouth three times daily as needed for muscle spasm.) - amiodarone (PACERONE) 200 mg tablet Take 1 tablet by mouth once daily for 5 days, THEN 0.5 tablets once daily. - ascorbic acid, vitamin C, (VITAMIN C) 500 mg tablet Take 1 tablet by mouth once daily. - ferrous sulfate 325 mg (65 mg iron) tablet Take 1 tablet by mouth once daily. - folic acid 1 mg tablet Take 1 tablet (more content not included)... Normal [facility] Determination of erythrocyte mean corpuscular volume (MCV)on 10-16-2021 MCV (RBC) [Entitic vol] 97.3 fL 80-94 [facility] Work Phone: Hematocrit Auto (Bld) [Volum e fraction]on 10-16-2021 Hematocrit (Bld) [Volume fraction] 32.5 % 40-54 [facility] Work Phone: Laboratory - Chemistry and C hemistry - challengeon 10-16-2021 CO2 [Moles/Vol] 29.0 mmol/L 21.0-32.0 [facility] Work Phone: Magnesium [Mass/Vol] 2.0 mg/dL 1.6-2.6 [facility] Work Phone: Urea nitrogen/Creatinine [Mass ratio] 20.3 mg/mg 10-20 [facility] Work Phone: Laboratory - Hematology and Cell countson 10-16-2021 Erythrocyte distribution width (RBC) [Entitic vol] 49.2 fL 35.1-43.9 [facility] Work Phone: Erythrocyte distribution width (RBC) [Ratio] 13.7 % 11.6-14.6 [facility] Work Phone: Immature granulocytes/100 WBC (Bld) 0.300 % 0.0-0.9 [facility] Work Phone: Comment on above: IG% - Immature Granu locytes (promyelocytes, myelocytes and metamyelocytes) > 1% indicates that a LEFT SHIFT is Present. MCH (RBC) [Entitic mass] 31.4 pg 27.0-32.0 [facility] Work Phone: Nucleated RBC/100 WBC (Bld) [Ratio] 0 % 0-5 [facility] Work Phone: MCHC Auto (RBC) [Mass/Vol]on 10-16-2021 MCHC (RBC) [Mass/Vol] 32.3 g/dL 32-36 [facility] Work Phone: No Panel Informationon 10-16 Estimated Creatinine Clearance Calc 72.27 ml/min [facility] Work Phone: Estimated GFR (MDRD) Amer 118 mL/min >60 [facility] Work Phone: Comment on above: GFR Calc Estimated GFR (MDRD) Non-Af Amer 97 mL/min >60 [facility] Work Phone: Comment on above: Non- GFR Calc Platelets bldon 10-16-2021 Platelets (Bld) [#/Vol] 517 10*3/uL 150-450 [facility] Work Phone: Serum or plasma calcium sadi urement (mass/volume)on 10-16-2021 Calcium [Mass/Vol] 8.8 mg/dL 8.5-10.1 [facility] Work Phone: Serum or plasma creatinine m easurement (mass/volume)on 10-16-2021 Creatinine [Mass/Vol] 0.84 mg/dL 0.70-1.30 [facility] Work Phone: Comment on above: The validity of the calculated GFR & GFRAA in patients over 70 years has not been determined. Clinical correlation is essential. Serum or plasma urea nitroge n measurement (mass/volume)on 10-16-2021 Urea nitrogen [Mass/Vol] 17 mg/dL 7-18 [facility] Work Phone: Thin prep Papanicolaou smear with manual screeningon 10-16-2021 Thin prep Papanicolaou smear with manual screening 08-16 [facility] Work Phone: CNPNon 10-15-2021 CNPN Telephone ([facility]) -- RADHA BRENNAN ([id number]) 1955 M Date Time Provider Department 10/15/21 BJORN CALVILLO During your visit today, we recorded the following information about you: Bjorn Calvillo RN 10/15/2021 12:13 PM Signed Good afternoon, Pt would like to use the arthritis strength Tylenol, 2 tabs every 8 hours as needed; he feels that he gets better relief from muscle aches. Are you ok with this? He is also having very vivid dreams; I suggested that he try using the tylenol at night and hold off on the flexeril if he can to see if this may be the cause. Pt will be seeing you tomorrow and I plan to dc from home health next week. Thank you for following this home health pt. Linda Winkler APRN.[employer]ER 10/15/2021 12:20 PM Signed Jai Hahn, Yes I agree with flexeril advice. I believe Tylenol Arthritis is 650 mg, so 2 tabs would be too much at one time. He can do 1 tablet every 4 hours if he prefers. Thanks for all your care of him! Linda Winkler APRN.BULL BUCKER Allergies As of Date: 10/15/2021 Noted Allergy Reaction TUBERCULIN, PURIFIED PROTEIN DERI*06/25/2021 7 - Swelling VENOM-HONEY BEE 06/25/2021 7 - Swelling Comments: Actually black and yellow bumble bees per pt Date Reviewed: 10/09/2021 Reviewed by: Bjorn Calvillo RN - Fully Assessed Reason for Visit: Home Care [4073] Cmt: pt request Prescriptions as of 10/15/2021 - cyclobenzaprine (FLEXERIL) 5 mg tablet Take 1 tablet by mouth three times daily as needed for muscle spasm. 09/30/21 NOT TAKING - amiodarone (PACERONE) 200 mg tablet Take 1 tablet by mouth once daily for 5 days, THEN 0.5 tablets once daily. - ascorbic acid, vitamin C, (VITAMIN C) 500 mg tablet Take 1 tablet by mouth once daily. - ferrous sulfate 325 mg (65 mg iron) tablet Take 1 tablet by mouth once daily. - folic acid 1 mg tablet Take 1 tablet by mouth once daily. - gabapentin (NEURONTIN) 100 mg capsule Take 2 capsules by mouth twice daily for 14 days. - lidocaine (SALONPAS) 4 % patch Apply 1 Patch as directed once daily. - nicotine (NICODERM) 21 mg/24 hr Apply 1 Patch as directed once daily for 14 days. - metoprolol tartrate, short acting, (LOPRESSOR) 25 mg tablet Take 1 tablet by mouth every 12 hours. - magnesium oxide (MAG-OX) 400 mg (241.3 mg magnesium) tablet Take 1 tablet by mouth once daily. - thiamine (VITAMIN B1) 100 mg tablet 1 tablet by ORAL/FEEDING TUBE route three times daily. - senna-docusate (SENNA-S) 8.6-50 mg per tablet Take 1 tablet by mouth twice daily. - food supplemt, lactose-reduced (BOOST BREEZE NUTRITIONAL) 0.04-1.05 gram-kcal/mL Take 1 Can by mouth twice daily for 14 days. - clopidogrel (PLAVIX) 75 mg tablet Take 75 mg by mouth once daily. - lamoTRIgine (LAMICTAL) 25 mg tablet Take 50 mg by mouth twice daily. - aspirin, enteric coated (ASPIRIN, ENTERIC COATED) 81 mg EC tablet Take 81 mg by mouth once daily. - primidone (MYSOLINE) 50 mg tablet Take 75 mg by mouth twice daily. - atorvastatin (LIPITOR) 40 mg tablet Take 40 mg by mouth once daily. - nitroglycerin sublingual (NITROQUICK) 0.4 mg SL tablet Dissolve 1 tablet under the tongue every 5 minutes as needed for Chest Pain. August of three doses. 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/15/2021 CAD in catawba artery [I25.10] 09/21/2021 Severe protein-calorie malnutrition (HCC) [E43] 09/22/2021 Nicotine use disorder, F17.2 [F17.200] 09/24/2021 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] 09/28/2021 Encounter Status:Closed by LINDA WINKLER CNP on 10/15/21 [facility] CNOVon 10-08-2021 CNOV Office Visit ([facility]) -- RADHA BRENNAN ([id number]) 1955 M Date Time Provider Department 10/08/21 11:30 AM LINDA WINKLER During your visit today, we recorded the following information about you: Linda Winkler APRN.CNP 10/10/2021 9:54 AM Signed HPI: Radha Brennan is a 66 year old male with PMH of coronary artery disease, hyperlipidemia, prior CVA, seizure disorder, atrial septal aneurysm, ongoing and prolonged tobacco use (1.5 packs of series per day, started age 5). ?In 2018, he underwent stenting with drug-eluting stents to the left anterior descending artery and second diagonal branch after presenting with anginal symptoms. He presented earlier this year with unstable anginal symptoms, underwent cardiac catheterization and was found to have severe multivessel disease include involving the LAD, D1, D2 ? He underwent CABG x [address] Dominguez on 09/21/2021. (GRAFTS: RIBEIRO in situ mammary end to side mid LAD, Vein graft ascending aorta end to side diagonal 2, ELIEL ascending aorta end to side diagonal 1). He did return to OR shortly after transfer to CVICU for increased chest tube output. A small area of arterial bleeding was identified in the L chest. Bleeding was controlled and he returned in stable condition to CVICU, where he was extubated on POD1 . On POD 1 (09/22), he had a convulsive seizure lasting 15 minutes, relieved with ativan, no recurrence. On POD 2 (09/23), he required a blood transfusion and also episode of atrial fibrillation which resolved with medical therapy. On POD 4, he was found to have fluid around his left lung, eventually requiring CT placement on POD 6 which was removed shortly thereafter. He continued to recover without issue and was deemed stable for discharge one week after surgery. Home health care will be checking in on you at home. ? OTHER PROBLEMS/DIAGNOSIS: Principal Problem: Coronary artery disease involving catawba coronary artery of catawba heart without angina pectoris Active Problems: S/P CABG x 3 Severe protein-calorie malnutrition (HCC) Nicotine use disorder, F17.2 Resolved Problems: Patient returns to the office today for one week post-discharge follow up . Interval events: none Radha Brennan reports home recovery as listed below: Patient is c/o: Mr Brennan walked in to this appointment, accompanied by his lady friend, from the parking garage all the way to the office. When he arrived to the office waiting room, he shares that he started experiencing sharp left sided chest pain /. He was brought back to the exam room for evaluation, and reported after 10 minutes or so of rest that it had subsided to a dull left pectoral ache 2/10. Denies SOB. Endorses chronic cough. Continues to smoke 1 PPD. Admits he has been walking around the [place], brief shorter walks. Attempted 1/2 lap around the [place] and experienced similar symptoms that subsided with rest. At the time of this evaluation he was noted to have significant bilateral hand tremors that he admits he gets when he is in pain. Manual BP left arm 110/60, HR 80. Repeat BP automatic cuff 110/60, 100% on RA, RR 16. He remained with pink, warm, dry skin. EKG revealed SR 77 NSR, possible ZEB, t wave abnormality (inversion) to lateral leads (V4, V5, V6). Dr. Dominguez was in to examine patient. Compared previous EKG from 09/22/21. After about 20 minutes of rest, Radha denied any further discomfort. Episodes of dizziness or syncope: no Chest pain: yes, see above Palpitations: no BP: reviewed per home log: none available. His friend reports BPs obtained by [facility] have been around 115/x, HR 70-80s, with SPO2 around 94/95% Tolerating diet well without changing bowel habits: yes. Although lady friend feels she observes poor appetite. Continues daily or BID Boost supplements. Regular BM with help of miralax Fever, chills: no Activities at home with/without SOB or FREEMAN: walks -see above Post surgical pain with pain medications - bilateral pectoral pain. Relieved with PRN tylenol Leg edema: none Sleep: good, naps frequently throughout the day. Energy: fair Subjective: Current Outpatient Medications Medication Sig - acetaminophen (TYLENOL) 500 mg tablet Take 2 tablets by mouth four times daily for 14 days. - amiodarone (PACERONE) 200 mg tablet Take 1 tablet by mouth once daily for 5 days, THEN 0.5 tablets once daily. - ascorbic acid, vitamin C, (VITAMIN C) 500 mg tablet Take 1 tablet by mouth once daily. - ferrous sulfate 325 mg (65 mg iron) tablet Take 1 tablet by mouth once daily. - folic acid 1 mg tablet Take 1 tablet by mouth once daily. - gabapentin (NEURONTIN) 100 mg capsule Take 2 capsules by mouth twice daily for 14 days. - lidocaine (SALONPAS) 4 % patch Apply 1 Patch as directed once daily. - nicotine (NICODERM) 21 mg/24 hr Apply 1 Patch as directed (more content not included)... Normal [facility] Mike 10-06-2021 [facility] Telephone ([facility]) -- RADHA BRENNAN ([id number]) 1955 M Date Time Provider Department 10/06/21 BJORN CALVILLO During your visit today, we recorded the following information about you: Bjorn Calivllo RN 10/06/2021 3:55 PM Signed Good afternoon, Radha has been having trouble with his bowels, he is taking the senna twice a day along with adequate fluids and had a large BM on Tuesday which he says was was hard and he did end up straining quite a lot. Can I Irecommend adding Miralax daily or what do you recommend. He does not like prunes or prune juice. Please advise, thank you! Linda Winkler APRN.BULL BUCKER 10/06/2021 4:02 PM Signed Yes absolutely add miralax. Thanks! Linda Winkler APRN.BULL BUCKER Allergies As of Date: 10/06/2021 Noted Allergy Reaction TUBERCULIN, PURIFIED PROTEIN DERI*06/25/2021 7 - Swelling VENOM-HONEY BEE 06/25/2021 7 - Swelling Comments: Actually black and yellow bumble bees per pt Date Reviewed: 10/02/2021 Reviewed by: Bjorn Calvillo RN - Fully Assessed Reason for Visit: Home Care [4073] Cmt: pt question Prescriptions as of 10/06/2021 - acetaminophen (TYLENOL) 500 mg tablet Take 2 tablets by mouth four times daily for 14 days. - amiodarone (PACERONE) 200 mg tablet Take 1 tablet by mouth once daily for 5 days, THEN 0.5 tablets once daily. - ascorbic acid, vitamin C, (VITAMIN C) 500 mg tablet Take 1 tablet by mouth once daily. - ferrous sulfate 325 mg (65 mg iron) tablet Take 1 tablet by mouth once daily. - folic acid 1 mg tablet Take 1 tablet by mouth once daily. - gabapentin (NEURONTIN) 100 mg capsule Take 2 capsules by mouth twice daily for 14 days. - lidocaine (SALONPAS) 4 % patch Apply 1 Patch as directed once daily. - nicotine (NICODERM) 21 mg/24 hr Apply 1 Patch as directed once daily for 14 days. - metoprolol tartrate, short acting, (LOPRESSOR) 25 mg tablet Take 1 tablet by mouth every 12 hours. - magnesium oxide (MAG-OX) 400 mg (241.3 mg magnesium) tablet Take 1 tablet by mouth once daily. - thiamine (VITAMIN B1) 100 mg tablet 1 tablet by ORAL/FEEDING TUBE route three times daily. - senna-docusate (SENNA-S) 8.6-50 mg per tablet Take 1 tablet by mouth twice daily. - food supplemt, lactose-reduced (BOOST BREEZE NUTRITIONAL) 0.04-1.05 gram-kcal/mL Take 1 Can by mouth twice daily for 14 days. - cyclobenzaprine (FLEXERIL) 5 mg tablet Take 5 mg by mouth three times daily as needed for muscle spasm. 09/30/21 NOT TAKING - clopidogrel (PLAVIX) 75 mg tablet Take 75 mg by mouth once daily. - lamoTRIgine (LAMICTAL) 25 mg tablet Take 50 mg by mouth twice daily. - aspirin, enteric coated (ASPIRIN, ENTERIC COATED) 81 mg EC tablet Take 81 mg by mouth once daily. - primidone (MYSOLINE) 50 mg tablet Take 75 mg by mouth twice daily. - atorvastatin (LIPITOR) 40 mg tablet Take 40 mg by mouth once daily. - nitroglycerin sublingual (NITROQUICK) 0.4 mg SL tablet Dissolve 1 tablet under the tongue every 5 minutes as needed for Chest Pain. August of three doses. Problem List As Of Date 10/06/2021 Noted Resolved Tobacco abuse [Z72.0] 05/12/2020 Screening for colon cancer [Z12.11] 05/12/2020 Seizures (HCC) [R56.9] 05/12/2020 Cerebrovascular accident (CVA) (HCC) [I63.9] 05/12/2020 Diarrhea [R19.7] 05/12/2020 09/28/2021 LV dysfunction [I51.9] Atrial septal aneurysm [I25.3] Mixed hyperlipidemia [E78.2] Coronary artery disease involving catawba joy* BPH with obstruction/lower urinary tract sympto*09/15/2021 CAD in catawba artery [I25.10] 09/21/2021 Severe protein-calorie malnutrition (HCC) [E43] 09/22/2021 Nicotine use disorder, F17.2 [F17.200] 09/24/2021 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] 09/28/2021 Encounter Status:Closed by LINDA WINKLER CNP on 10/06/21 [facility] Mike 09-30-2021 [facility] Telephone ([facility]) -- RADHA BRENNAN ([id number]) 1955 M Date Time Provider Department 09/30/21 BJORN CALVILLO During your visit today, we recorded the following information about you: Bjorn Calvillo RN 09/30/2021 12:49 PM Signed Good morning, a potential severe drug interaction that I am required to notify you of: Drug-Drug: amiodarone and primidone Concurrent use of barbiturates, carbamazepine, phenobarbital, phenytoin or primidone may result in decreased levels and effectiveness of amiodarone(1) and dronedarone.(2) Concurrent use of amiodarone and phenytoin may also result in elevated levels of and toxicity from phenytoin.(1) Concurrent use of dronedarone and carbamazepine may also result in elevated levels of and toxicity from carbamazepine.(3). Thank you for your review. Allergies As of Date: 09/30/2021 Noted Allergy Reaction TUBERCULIN, PURIFIED PROTEIN DERI*06/25/2021 7 - Swelling VENOM-HONEY BEE 06/25/2021 7 - Swelling Comments: Actually black and yellow bumble bees per pt Date Reviewed: 09/28/2021 Reviewed by: Kathryn Juan RN - Fully Assessed Reason for Visit: Home Care [4073] Cmt: potential severe drug interaction Prescriptions as of 09/30/2021 - acetaminophen (TYLENOL) 500 mg tablet Take 2 tablets by mouth four times daily for 14 days. - amiodarone (PACERONE) 200 mg tablet Take 1 tablet by mouth once daily for 5 days, THEN 0.5 tablets once daily. - ascorbic acid, vitamin C, (VITAMIN C) 500 mg tablet Take 1 tablet by mouth once daily. - ferrous sulfate 325 mg (65 mg iron) tablet Take 1 tablet by mouth once daily. - folic acid 1 mg tablet Take 1 tablet by mouth once daily. - gabapentin (NEURONTIN) 100 mg capsule Take 2 capsules by mouth twice daily for 14 days. - lidocaine (SALONPAS) 4 % patch Apply 1 Patch as directed once daily. - nicotine (NICODERM) 21 mg/24 hr Apply 1 Patch as directed once daily for 14 days. - metoprolol tartrate, short acting, (LOPRESSOR) 25 mg tablet Take 1 tablet by mouth every 12 hours. - magnesium oxide (MAG-OX) 400 mg (241.3 mg magnesium) tablet Take 1 tablet by mouth once daily. - oxyCODONE IR (ROXICODONE) 5 mg immediate release tablet Take 1 tablet by mouth every 8 hours as needed for pain for up to 3 days. - thiamine (VITAMIN B1) 100 mg tablet 1 tablet by ORAL/FEEDING TUBE route three times daily. - senna-docusate (SENNA-S) 8.6-50 mg per tablet Take 1 tablet by mouth twice daily. - food supplemt, lactose-reduced (BOOST BREEZE NUTRITIONAL) 0.04-1.05 gram-kcal/mL Take 1 Can by mouth twice daily for 14 days. - cyclobenzaprine (FLEXERIL) 5 mg tablet Take 5 mg by mouth three times daily as needed for muscle spasm. - clopidogrel (PLAVIX) 75 mg tablet Take 75 mg by mouth once daily. - lamoTRIgine (LAMICTAL) 25 mg tablet Take 50 mg by mouth twice daily. - aspirin, enteric coated (ASPIRIN, ENTERIC COATED) 81 mg EC tablet Take 81 mg by mouth once daily. - primidone (MYSOLINE) 50 mg tablet Take 75 mg by mouth twice daily. - atorvastatin (LIPITOR) 40 mg tablet Take 40 mg by mouth once daily. - nitroglycerin sublingual (NITROQUICK) 0.4 mg SL tablet Dissolve 1 tablet under the tongue every 5 minutes as needed for Chest Pain. May of three doses. 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*09/15/2021 CAD in catawba artery [I25.10] 09/21/2021 Severe protein-calorie malnutrition (HCC) [E43] 09/22/2021 Nicotine use disorder, F17.2 [F17.200] 09/24/2021 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] 09/28/2021 Encounter Status:Closed by BJORN CALVILLO on 09/30/21 [facility] CNDSon 09-28-2021 [facility] HNO ID: [id number] Author: Tami Luna PA-C Service: Cardiovascular Surgery Author Type: Physician Vegetables Cook Type: Discharge Summary Filed: 09/28/2021 11:57 AM Note Text: -- Attestation signed by Gregorio Dominguez MD at 09/28/2021 1:49 PM Attending Note I have personally performed a face to face assessment of the patient and have reviewed the FERNANDO note. I performed a substantive portion of the visit including all aspects of the following. My cat findings include: History is as above Other additions or changes: None Signature: Gregorio Dominguez MD Date: 09/28/2021 Time: 1:49 PM -- DISCHARGE SUMMARY PATIENT NAME: Radha Brennan Code Status: Not on file 09/28/2021 Highest Readmission Risk Score: 19 The 30 day readmissions risk score is derived from an internally validated risk model which evaluates patient level characteristics, utilization history, medication orders and lab results up until the day of discharge. Patients with a score of 40 or above are considered highest risk for readmission. Specific patient level drivers will be listed at the bottom of the summary. Admission Information Admission Information ADMIT DATE: 09/21/2021 DISCHARGE DATE: 09/28/2021 MY DOCTORS AND MEDICAL TEAM: My Main Hospital Doctor: Gregorio Dominguez MD Primary Care Provider: Clement Swanson MD, My Medical Team Members: Treatment Team: Attending Provider: Gregorio Dominguez MD MY CONDITION AT DISCHARGE: Stable REASON I WAS IN THE HOSPITAL: Coronary Artery Disease, Bypass Surgery SUMMARY OF WHAT HAPPENED WHILE I WAS IN THE HOSPITAL: You underwent CABG x [address] Dominguez on 09/21/2021. You were transferred to the CVICU in stable condition. Chest tube output was more than expected after surgery. The decision was made to return to the OR to explore for active bleeding. A small area of arterial bleeding was identified in the L chest. Once bleeding was controlled intra-operatively, you were brought back to CVICU in stable condition. You remained on the ventilator until around 9:30 AM on 09/22. On POD 1 (09/22), you had one episode of convulsions that lasted 15 minutes. You were given ativan. No more seizures were noted after that episode. On POD 2 (09/23), you required a blood transfusion. You also developed an irregular heart rhythm which resolved with medicine. On POD 4, you were found to have a fluid around your left lung. After more chest Xrays showed that it wasn't getting better on its own, it was decided that it should be drained. On POD 6, the fluid was drained. The chest tube was removed the following day without difficulty. Your pain has been controlled, you have been eating and drinking, and you have been able to mobilize well. Thus, you were deemed stable for discharge one week after surgery. Home health care will be checking in on you at home. OTHER PROBLEMS/DIAGNOSIS: Principal Problem: Coronary artery disease involving catawba coronary artery of catawba heart without angina pectoris Active Problems: S/P CABG x 3 Severe protein-calorie malnutrition (HCC) Nicotine use disorder, F17.2 Resolved Problems: * No resolved hospital problems. * OPERATIONS PERFORMED WHILE IN THE HOSPITAL: CABG x 3 IMPORTANT TEST/PROCEDURES: No procedures performed TEST RESULTS NOT AVAILABLE AT THIS TIME: No pending results Discharge Disposition Discharge Disposition: Home With Home Care Activity When You Leave the Hospital Lifting is restricted to: Less than 10 pounds. No pushing or pulling. Avoid use of your arms except for bathing, brushing your teeth, feeding yourself, and completing other minor tasks of daily living. Do not push yourself up from a sitting position. No driving until cleared by surgeon. Shower and wash incisions daily. No tub bath. Diet Instructions Heart Healthy Fluid restriction 2 liters per day. Low Cholesterol Low Salt For Pain When You Leave the Hospital No alcohol or driving while on pain medication Other: Please take 500-1000 mg of tylenol every 6 hours to keep your pain under control. Do not take more than 4000mg in one day. Use the dispensed medication (see prescription) You should use an [id number] stool softener (Docusate sodium) and/or a fiber supplement (Metamucil, Fiber Con) every day while taking prescribed pain medication Wound/Surgical Site Care Wash your hands frequently, especially before touching your incision, after using restroom and before eating Your incision has skin glue. It will peel off on its own. It can get wet Call Your Doctor If Other: Shortness of breath, chest pain, weight gain, swelling of legs There is an unusual odor from the wound area There is severe pain at the operative site You have lightheadedness, fainting, or c (more content not included)... Normal [facility] 09-28-2021 [facility] Telephone ([facility]) -- RADHA BRENNAN ([id number]) 1955 M Date Time Provider Department 09/28/21 KRUNAL FLORES During your visit today, we recorded the following information about you: Krunal Flores LPN 09/28/2021 2:57 PM Signed Voice message left at [phone] requesting a call back to confirm SOC Krunal Flores LPN [facility] Admissions Intake Nurse Allergies As of Date: 09/28/2021 Noted Allergy Reaction TUBERCULIN, PURIFIED PROTEIN DERI*06/25/2021 7 - Swelling VENOM-HONEY BEE 06/25/2021 7 - Swelling Comments: Actually black and yellow bumble bees per pt Date Reviewed: 09/28/2021 Reviewed by: Kathryn Juan RN - Fully Assessed Reason for Visit: Home Care [4073] Cmt: confirmation call Prescriptions as of 09/28/2021 - acetaminophen (TYLENOL) 500 mg tablet Take 2 tablets by mouth four times daily for 14 days. - amiodarone (PACERONE) 200 mg tablet Take 1 tablet by mouth once daily for 5 days, THEN 0.5 tablets once daily. - ascorbic acid, vitamin C, (VITAMIN C) 500 mg tablet Take 1 tablet by mouth once daily. - ferrous sulfate 325 mg (65 mg iron) tablet Take 1 tablet by mouth once daily. - folic acid 1 mg tablet Take 1 tablet by mouth once daily. - gabapentin (NEURONTIN) 100 mg capsule Take 2 capsules by mouth twice daily for 14 days. - lidocaine (SALONPAS) 4 % patch Apply 1 Patch as directed once daily. - nicotine (NICODERM) 21 mg/24 hr Apply 1 Patch as directed once daily for 14 days. - metoprolol tartrate, short acting, (LOPRESSOR) 25 mg tablet Take 1 tablet by mouth every 12 hours. - magnesium oxide (MAG-OX) 400 mg (241.3 mg magnesium) tablet Take 1 tablet by mouth once daily. - oxyCODONE IR (ROXICODONE) 5 mg immediate release tablet Take 1 tablet by mouth every 8 hours as needed for pain for up to 3 days. - thiamine (VITAMIN B1) 100 mg tablet 1 tablet by ORAL/FEEDING TUBE route three times daily. - senna-docusate (SENNA-S) 8.6-50 mg per tablet Take 1 tablet by mouth twice daily. - food supplemt, lactose-reduced (BOOST BREEZE NUTRITIONAL) 0.04-1.05 gram-kcal/mL Take 1 Can by mouth twice daily for 14 days. - cyclobenzaprine (FLEXERIL) 5 mg tablet Take 5 mg by mouth three times daily as needed for muscle spasm. - clopidogrel (PLAVIX) 75 mg tablet Take 75 mg by mouth once daily. - lamoTRIgine (LAMICTAL) 25 mg tablet Take 50 mg by mouth twice daily. - aspirin, enteric coated (ASPIRIN, ENTERIC COATED) 81 mg EC tablet Take 81 mg by mouth once daily. - primidone (MYSOLINE) 50 mg tablet Take 75 mg by mouth twice daily. - atorvastatin (LIPITOR) 40 mg tablet Take 40 mg by mouth once daily. - nitroglycerin sublingual (NITROQUICK) 0.4 mg SL tablet Dissolve 1 tablet under the tongue every 5 minutes as needed for Chest Pain. August of three doses. Facility-Administered Medications as of 09/28/2021 - ferrous sulfate 325 mg tab(s) - ascorbic acid (vitamin C) 500 mg tab(s) (VITAMIN C) - folic acid 1 mg tab(s) - nicotine 21 mg/24 hr 1 Patch (NICODERM) - sodium chloride 0.9 % (flush) 2-10 mL (BD POSIFLUSH) - melatonin 3 mg tab(s) - amiodarone 400 mg tab(s) (PACERONE) - metoprolol tartrate (short acting) 25 mg tab(s) (LOPRESSOR) - insulin lispro pen (rapid acting) (HumaLOG KWIKPEN) - insulin lispro pen (rapid acting) (HumaLOG KWIKPEN) - pantoprazole DR 40 mg tab(s) (PROTONIX) - senna-docusate 8.6-50 mg 1 tablet (SENNA-S) - bisacodyl 10 mg suppository (DULCOLAX) - dextrose 15 gram/32 mL 15 g (TRUEPLUS) - glucagon 1 mg injection - dextrose 10% iv bolus - thiamine 100 mg tab(s) (VITAMIN B1) - lamoTRIgine 50 mg tab(s) (LaMICtal) - primidone 50 mg tab(s) (MYSOLINE) - enoxaparin 40 mg injection (LOVENOX) - sodium chloride 0.9 % (flush) 10 mL (BD POSIFLUSH) - sodium chloride 0.9 % (flush) 20 mL (BD POSIFLUSH) - NaCl 0.9% iv flush bag - albuterol 2.5 mg /3 mL (0.083 %) 2.5 mg (PROVENTIL) - aspirin 162 mg chewable tab(s) - atorvastatin 40 mg tab(s) (LIPITOR) - ondansetron (PF) 4 mg injection (ZOFRAN) - acetaminophen 1,000 mg tab(s) (TYLENOL) - gabapentin 200 mg cap(s) (NEURONTIN) - lidocaine 4 % 1 Patch (SALONPAS) - lidocaine patch - REMOVE - lidocaine - VERIFY PATCH - magnesium oxide 400 mg tab(s) (MAG-OX) - oxyCODONE IR 5-10 mg tab(s) (ROXICODONE) - fentaNYL 50 mcg/mL 25-50 mcg injection (SUBLIMAZE) - nicotine -- REMOVE patch - nicotine - verify patch Problem List As Of Date 09/28/2021 Noted Resolved Tobacco abuse [Z72.0] 05/12/2020 Screening for colon cancer [Z12.11] 05/12/2020 Seizures (HCC) [R56.9] 05/12/2020 Cerebrovascular accident (CVA) (HCC) [I63.9] 05/12/2020 Diarrhea [R19.7] 05/12/2020 09/28/2021 LV dysfunction [I51.9] Atrial septal aneurysm [I25.3] Mixed hyperlipidemia [E78.2] Coronary artery disease involving cata[place]ba joy* BPH with obstruction/lower urinary tract sympto*09/15/2021 CAD in catawba artery [I25.10] 09/03 (more content not included)... Normal [facility] NURSING PROGon 09-28-2021 NURSING PROG HNO ID: [id number] Author: Kathryn Juan RN Service: Nursing Author Type: Registered Nurse Type: Nursing Progress Note Filed: 09/28/2021 5:49 AM Note Text: RN attempted morning lab draw. Patient is requesting to not be drawn for morning labs (due to his discomfort with needles.) LIP notified. Kathryn Juan RN Normal [facility] XR CHEST 1V FRONTALon 2021 XR CHEST 1V FRONTAL * * *Final Report* * * DATE OF EXAM: Sep 28 2021 6:09AM AKX 5290 - XR CHEST 1V FRONTAL / PROCEDURE REASON: Pneumothorax * * * * Physician Interpretation * * * * EXAMINATION: CHEST RADIOGRAPH (SINGLE VIEW AP OR PA) CLINICAL HISTORY: Pneumothorax MQ: XC1_5 Comparison: 09/27/2021 RESULT: Lines, tubes, and devices: Left-sided pigtail chest tube with pigtail coiled over left apex laterally. Overlying environmental monitoring technician leads. Intact median sternotomy wires. Lungs and pleura: No residual left-sided pneumothorax. Trace left-sided pleural effusion with probable atelectasis left base medially. Right lung is clear. Cardiomediastinal silhouette: Stable. Other: No significant additional findings. IMPRESSION: Left-sided pigtail chest tube with interval resolution of left pneumothorax. Otherwise stable findings. Manager Validation: ISAÍAS Transcribe Date/Time: Sep 28 2021 8:38A Dictated by : DAPHNE WILLS MD This examination was interpreted and the report reviewed and electronically signed by: DAPHNE WILLS MD on Sep 28 2021 8:40AM EST [id number] Normal [facility] ALLIED HEALTHon 09-27-2021 ALLIED HEALTH HNO ID: [id number] Author: RT Janice(Bill) Service: Radiology Author Type: Technologist Type: Allied Health Filed: 09/27/2021 6:33 AM Note Text: Radiology Service Progress Note PATIENT NAME: Radha Brennan DATE OF SERVICE: September 27, 2021 TIME: 6:32 AM PATIENT IDENTITY VERIFICATION COMPLETED USING TWO (2) IDENTIFIERS: Name and Date of confirmed by patient verbally and Name and Date of confirmed by identification band. FALL SCREENING: Has the patient had 2 falls in the last year or 1 fall with injury or currently using an Ambulatory Assistive Device (Walker, Cane, Wheelchair, Crutches, etc.)? Inpatient: Screened on floor PATIENT GENDER DATA: Male PATIENT RELEVANT IMPLANT DATA REVIEWED: Not Applicable RADIOLOGY DEPARTMENT: General X-ray: Exam(s) Completed: Chest X-Ray PERIPHERAL IV DATA: Not applicable SIGNED BY: RT Janice(R) September 27, 2021 6:32 AM Normal [facility] BRIEF OP NOTon 09-27-2021 BRIEF OP NOT HNO ID: [id number] Author: Yarely Hobbs MD, MD Service: Radiology Author Type: Physician Type: Brief Op Note Filed: 09/27/2021 12:01 PM Note Text: INTERVENTIONAL RADIOLOGY POST PROCEDURE NOTE DATE: 09/27/21 NAME: Radha Brennan LOG ID: [id number] Pre-Procedure Diagnosis: Left pneumothorax Post Procedure Diagnosis: Same. K [employer] Police Officer: Dr. Yarely Hobbs Procedure: Image guided left chest tube placement Anesthesia: Procedural Sedation Findings: Successful placement of 10 Nepali left sided chest tube with aspiration of left pneumothorax. Estimated Blood Loss: Minimal (Less Than 25 mL). Specimen: None Complications: None Full report with procedural details to follow and will become available under Imaging Reports. Please contact for any questions or concerns. SIGNATURE: Yarely Hobbs MD PATIENT NAME: Radha Brennan DATE: September 27, 2021 TIME: 12:00 PM PAGER/CONTACT #: Normal [facility] Basic metabolic 2000 panelon 09-27-2021 Anion gap [Moles/Vol] 8 mmol/L Low 9-18 [facility] Comment on above: Order Comment: Speci men Type: BLOOD SPECIMENOrdering Facility: [facility] Address: [address] [place] [address] Performed By: #### 2 4321-2 ####[facility] LABORATORYCLIA [id number] [place] [address] [place] Calcium [Mass/Vol] 8.8 mg/dL Normal 8.5-10.2 [facility] Comment on above: Order Comment: Speci men Type: BLOOD SPECIMENOrdering Facility: [facility] Address: [address] [place] [address] Performed By: #### 2 4321-2 ####[facility] LABORATORYCLIA [id number] [place] [address] [place] Chloride [Moles/Vol] 101 mmol/L Normal 97-105 [facility] Comment on above: Order Comment: Speci men Type: BLOOD SPECIMENOrdering Facility: [facility] Address: [address] [place] [address] Performed By: #### 2 4321-2 ####[facility] LABORATORYCLIA [id number] [place] [address] [place] CO2 [Moles/Vol] 26 mmol/L Normal 22-30 [facility] Comment on above: Order Comment: Speci men Type: BLOOD SPECIMENOrdering Facility: [facility] Address: [address] [place] [address] Performed By: #### 2 4321-2 ####[facility]ORATORYCLIA [id number] [address] STATES OF [facility] Creatinine [Mass/Vol] 0.86 mg/dL Normal 0.73-1.22 [facility] Comment on above: Order Comment: Speci men Type: BLOOD SPECIMENOrdering Facility: [facility] Address: [address] [place] [address] Performed By: #### 2 4321-2 ####[facility]ORATORYCLIA [id number] [address] ESTIMATED GLOMERULAR FILTRATION RATE 95 mL/min/1.73m??? Normal >=60 [facility] Comment on above: Order Comment: Speci men Type: BLOOD SPECIMENOrdering Facility: [facility] Address: [address] [place] [address] Result Comment: Teena mated Glomerular Filtration Rate (eGFR) is calculated using the 2020 CKD-EPI creatinine equation. This equation utilizes serum creatinine, sex, and age as parameters. The creatinine assay has traceable calibration to isotope dilution-mass spectrometry. Refer to KDIGO guidelines for clinical interpretation. In patients with unstable renal function, e.g. those with acute kidney injury, the eGFR may not accurately reflect actual GFR. Performed By: #### 2 4321-2 ####[facility] LABORATORYCLIA [id number] [address] [place] Glucose [Mass/Vol] 117 mg/dL High 74-99 [facility] Comment on above: Order Comment: Speci men Type: BLOOD SPECIMENOrdering Facility: [facility] Address: [address] [place] [address] Result Comment: The [place] Diabetes [employer] (ADA) provides guidance for cutoff values for fasting glucose and random glucose. The ADA defines fasting as no caloric intake for at least 8 hours. Fasting plasma glucose results between 100 to 125 mg/dL indicate increased risk for diabetes (prediabetes). Fasting plasma glucose results greater than or equal to 126 mg/dL meet the criteria for diagnosis of diabetes. In the absence of unequivocal hyperglycemia, results should be confirmed by repeat testing. In a patient with classic symptoms of hyperglycemia or hyperglycemic crisis, random plasma glucose results greater than or equal to 200 mg/dL meet the criteria for diagnosis of diabetes. Reference: Standards of Medical Care in Diabetes 2016, [place] [employer]. Diabetes Care. 2016.39(Suppl 1). Performed By: #### 2 4321-2 ####[facility]ATORYCLIA [id number] [place] [address] [place] Potassium [Moles/Vol] 3.9 mmol/L Normal 3.7-5.1 [facility] Comment on above: Order Comment: [facility] Type: BLOOD SPECIMENOrdering Facility: [facility] Address: [address] [address] Performed By: #### 2 4321-2 ####[facility] LABORATORYCLIA [id number] [place] [address] [place] Sodium [Moles/Vol] 135 mmol/L Low 136-144 [facility] Comment on above: Order Comment: Dreeki men Type: BLOOD SPECIMENOrdering Facility: [facility] Address: [address] [address] Performed By: #### 2 4321-2 ####[facility]ATORYCLIA [id number] [place] [address] [place] Urea nitrogen [Mass/Vol] 17 mg/dL Normal 9-24 [facility] Comment on above: Order Comment: [facility] Type: BLOOD SPECIMENOrdering Facility: [facility] Address: [address] [address] Performed By: #### 2 4321-2 ####[facility]ATORYCLIA [id number] [place] [address] [place] [facility] HISTORY PHYSICALon HISTORY PHYSICAL HNO ID: [id number] Author: Yarely Hobbs MD, MD Service: Radiology Author Type: Physician Type: HANDP Filed: 09/27/2021 11:30 AM Note Text: UPDATED HISTORY AND PHYSICAL EXAMINATION SERVICE DATE: 09/27/2021 SERVICE TIME: 11:30 AM PHYSICAL EXAM MUST BE COMPLETED ON ADMISSION The History and Physical (completed in the past 30 days) has been reviewed and the patient has been examined. The contents accurately reflect the patient's condition with the following additions or revisions since the HANDP was completed. Examination indicates no changes. This HANDP can be found in the Electronic Medical Record dated 09/21/21. SIGNATURE: Yarely Hobbs MD PATIENT NAME: Radha Brennan DATE: September 27, 2021 TIME: 11:30 AM PAGER: Normal [facility] IR CHEST TUBE INSERTon 09-27 IR CHEST TUBE INSERT * * *Final Report* * * DATE OF EXAM: Sep 27 2021 12:28PM [facility] 7804 - IR CHEST TUBE INSERT / PROCEDURE REASON: Pneumothorax * * * * Physician Interpretation * * * * PROCEDURE: FLUOROSCOPIC GUIDED LEFT CHEST TUBE PLACEMENT DATE: 09/27/2021 12:28 PM INDICATION: Left-sided pneumothorax. ENCOUNTER: Initial COMPARISON: Chest x-ray examinations performed earlier today and on 09/26/2021. TECHNIQUE/FINDINGS: The procedure was performed in the VIR Suite following informed consent and a Time Out. Informed consent was obtained from the patient. The patient was evaluated for the safety and appropriateness of conscious sedation and the Moderate Sedation Record was completed. The patient was sedated with intravenous Fentanyl and Versed administered by the radiology nurses. Please refer to nursing notes for medication dosages. The patient's vital signs were monitored during the procedure by the radiology nurses. Total intraservice time (monitoring for moderate sedation) was 24 minutes. Patient monitoring: Supervised observer Fluoroscopic examination was performed to identify the left-sided pneumothorax. Fluoroscopic images were saved in place in the PACS system. Skin site for left-sided chest tube placement was marked. The area was then prepped using all elements of maximal sterile barrier technique, hand hygiene, skin preparation fashion. 2 % lidocaine was injected for local anesthesia. Using ultrasound guidance, Yueh sheathed needle was advanced into the collection. A Amplatz stiff guidewire was was then advanced via the Yueh catheter into the left pleural space with the apex. Following serial dilation, a 10 Nepali percutaneous drain was then placed with cope loop formed at the apex. Fluoroscopy was performed to confirm drain positioning. Drain was placed to 3 chamber dry suction device and air was aspirated, as well as small amount of blood products. Fluoroscopy was repeated, demonstrating resolution of the pneumothorax. No immediate complication was noted. Fluoro time: 0:36 min:sec Plane A, Air Kerma: 5.0 mGy 3 fluoroscopic images were obtained and placed in the PACS system. FINDINGS: Moderate size left pneumothorax. Successful placement 10 Nepali left-sided chest tube with cope performed at the left lung apex with aspiration of the left-sided pneumothorax. IMPRESSION: Successful placement of a 10 Nepali percutaneous drain into left pleural space with aspiration of left-sided pneumothorax, as described. Manager Validation: ISAÍAS Transcribe Date/Time: Sep 27 2021 3:18P Dictated by : YARELY HOBBS MD This examination was interpreted and the report reviewed and electronically signed by: YARELY HOBBS MD on Sep 27 2021 3:20PM EST [id number] Normal [facility] XR CHEST 1V FRONTALon 2021 XR CHEST 1V FRONTAL * * *Final Report* * * DATE OF EXAM: Sep 27 2021 6:34AM AKX 5290 - XR CHEST 1V FRONTAL / PROCEDURE REASON: Pneumothorax * * * * Physician Interpretation * * * * EXAM TITLE: AP/PA CHEST X RAY COMPARISON: 09/25/2021 at 09/26/2021. CLINICAL HISTORY: Pneumothorax ENCOUNTER: Not applicable MQ: XC1_5 RESULT: Lines, tubes, and devices: Examination limited due to overlying EKG leads. Lungs and pleura: No significant change regarding moderate size left hydropneumothorax, measuring up to 4.1 cm at the apex, likely differences in technique. No appreciable right-sided pneumothorax on the current examination. Suspect small right-sided effusion, essentially unchanged. No new focal airspace consolidation. Aorta vascularity within normal limits. 9 mm nodular opacity overlying the left lower lung zone, likely representing nipple shadow. Cardiomediastinal silhouette: Unchanged. Other: Osseous structures and soft tissues grossly intact. IMPRESSION: No significant change regarding moderate size left-sided pneumothorax. No partial right-sided pneumothorax on current examination. Manager Validation: ISÍAAS Transcribe Date/Time: Sep 27 2021 3:43P Dictated by : YARELY HOBBS MD This examination was interpreted and the report reviewed and electronically signed by: YARELY HOBBS MD on Sep 27 2021 3:45PM EST [id number] Normal [facility] ALLIED HEALTHon 09-26-2021 ALLIED HEALTH HNO ID: [id number] Author: RT Martha(R) Service: Radiology Author Type: Technologist Type: Allied Health Filed: 09/26/2021 7:47 AM Note Text: Radiology Service Progress Note PATIENT NAME: Radha Brennan DATE OF SERVICE: September 26, 2021 TIME: 7:46 AM PATIENT IDENTITY VERIFICATION COMPLETED USING TWO (2) IDENTIFIERS: Name and Date of confirmed by patient verbally and Name and Date of confirmed by identification band. FALL SCREENING: Has the patient had 2 falls in the last year or 1 fall with injury or currently using an Ambulatory Assistive Device (Walker, Cane, Wheelchair, Crutches, etc.)? Inpatient: Screened on floor PATIENT GENDER DATA: Male PATIENT RELEVANT IMPLANT DATA REVIEWED: Not Applicable RADIOLOGY DEPARTMENT: General X-ray: Exam(s) Completed: Chest X-Ray PERIPHERAL IV DATA: Not applicable SIGNED BY: RT Martha(R) September 26, 2021 7:46 AM Normal [facility] Basic metabolic 2000 panelon 09-26-2021 Anion gap [Moles/Vol] 10 mmol/L Normal 9-18 [facility] Comment on above: Order Comment: Speci men Type: BLOOD SPECIMENOrdering Facility: [facility] Address: [address] [place] [id number] Performed By: #### 2 4321-2 ####[facility]ORATORYCLIA [id number] [place] [address] [place] Calcium [Mass/Vol] 8.5 mg/dL Normal 8.5-10.2 [facility] Comment on above: Order Comment: Speci men Type: BLOOD SPECIMENOrdering Facility: [facility] Address: [address] [place] [address] Performed By: #### 2 4321-2 ####[facility]ATORYCLIA [id number] [place] [address] [place] Chloride [Moles/Vol] 102 mmol/L Normal 97-105 [facility] Comment on above: Order Comment: Speci men Type: BLOOD SPECIMENOrdering Facility: [facility] Address: [address] [place] [address] Performed By: #### 2 4321-2 ####[facility]ATORYCLIA [id number] [place] [address] [place] CO2 [Moles/Vol] 26 mmol/L Normal 22-30 [facility] Comment on above: Order Comment: Speci men Type: BLOOD SPECIMENOrdering Facility: [facility] Address: [address] [place] [address] Performed By: #### 2 4321-2 ####[facility]ATORYCLIA [id number] [place] [address] [place] Creatinine [Mass/Vol] 0.85 mg/dL Normal 0.73-1.22 [facility] Comment on above: Order Comment: Speci men Type: BLOOD SPECIMENOrdering Facility: [facility] Address: [address] [place] [address] Performed By: #### 2 4321-2 ####[facility]ATORYCLIA [id number] [place] [address] [facility] [place] ESTIMATED GLOMERULAR FILTRATION RATE 95 mL/min/1.73m??? Normal >=60 [facility] Comment on above: Order Comment: Speci men Type: BLOOD SPECIMENOrdering Facility: [facility] Address: [address] [place] [address] Result Comment: Teena mated Glomerular Filtration Rate (eGFR) is calculated using the 2020 CKD-EPI creatinine equation. This equation utilizes serum creatinine, sex, and age as parameters. The creatinine assay has traceable calibration to isotope dilution-mass spectrometry. Refer to KDIGO guidelines for clinical interpretation. In patients with unstable renal function, e.g. those with acute kidney injury, the eGFR may not accurately reflect actual GFR. Performed By: #### 2 4321-2 ####[facility]ATORYCLIA [id number] [place] [address] [place] Glucose [Mass/Vol] 119 mg/dL High 74-99 [facility] Comment on above: Order Comment: Speci men Type: BLOOD SPECIMENOrdering Facility: [facility] Address: [address] [place], [place] [phone] Result Comment: The [place] Diabetes Association (ADA) provides guidance for cutoff values for fasting glucose and random glucose. The ADA defines fasting as no caloric intake for at least 8 hours. Fasting plasma glucose results between 100 to 125 mg/dL indicate increased risk for diabetes (prediabetes). Fasting plasma glucose results greater than or equal to 126 mg/dL meet the criteria for diagnosis of diabetes. In the absence of unequivocal hyperglycemia, results should be confirmed by repeat testing. In a patient with classic symptoms of hyperglycemia or hyperglycemic crisis, random plasma glucose results greater than or equal to 200 mg/dL meet the criteria for diagnosis of diabetes. Reference: Standards of Medical Care in Diabetes 2016, [place] [employer]. Diabetes Care. 2016.39(Suppl 1). Performed By: #### 2 4321-2 ####[facility]ATORYCLIA [id number] [address] [place] Potassium [Moles/Vol] 4.0 mmol/L Normal 3.7-5.1 [facility] Comment on above: Order Comment: Speci men Type: BLOOD SPECIMENOrdering Facility: [facility] Address: [address] [phone] Performed By: #### 2 4321-2 ####[facility]ATORYCLIA [id number] [place] [id number] [place] Sodium [Moles/Vol] 138 mmol/L Normal 136-144 [facility] Comment on above: Order Comment: Speci men Type: BLOOD SPECIMENOrdering Facility: [facility] Address: [address] [place] [address] Performed By: #### 2 4321-2 ####[facility]ATORYCLIA [id number] [address] [place] Urea nitrogen [Mass/Vol] 11 mg/dL Normal 9-24 [facility] Comment on above: Order Comment: Speci men Type: BLOOD SPECIMENOrdering Facility: [facility] Address: [address] [place] [address] Performed By: #### 2 4321-2 ####[facility]ORYCLIA [id number] [address] [place] CBC panel Auto (Bld)on 09-26 Erythrocyte distribution width (RBC) [Ratio] 13.7 % Normal 11.5-15.0 [facility] Comment on above: Order Comment: Speci men Type: BLOOD SPECIMENOrdering Facility: [facility] Address: [address] [place] [address] Performed By: #### 5 8410-2 ####[facility]ATORYCLIA [id number] [address] [place] Hematocrit (Bld) [Volume fraction] 26.4 % Low 39.0-51.0 [facility] Comment on above: Order Comment: Speci men Type: BLOOD SPECIMENOrdering Facility: [facility] Address: [address] [place] [address] Performed By: #### 5 8410-2 ####[facility]ATORYCLIA [id number] [address] [place] Hemoglobin (Bld) [Mass/Vol] 8.9 g/dL Low 13.0-17.0 [facility] Comment on above: Order Comment: Speci men Type: BLOOD SPECIMENOrdering Facility: [facility] Address: [address] [place] [address] Performed By: #### 5 8410-2 ####[facility]ATORYCLIA [id number] [address] MCH (RBC) [Entitic mass] 32.4 pg Normal 26.0-34.0 [facility] Comment on above: Order Comment: Speci men Type: BLOOD SPECIMENOrdering Facility: [facility] Address: [address] [place] [address] Performed By: #### 5 8410-2 ####[facility]ORYCLIA [id number] [address] MCHC (RBC) [Mass/Vol] 33.7 g/dL Normal 30.5-36.0 [facility] Comment on above: Order Comment: Speci men Type: BLOOD SPECIMENOrdering Facility: [facility] Address: [address] [place] [address] Performed By: #### 5 8410-2 ####[facility]ORYCLIA [id number] [address] MCV (RBC) [Entitic vol] 96.0 fL Normal 80.0-100.0 [facility] Comment on above: Order Comment: Speci men Type: BLOOD SPECIMENOrdering Facility: [facility] Address: [address] [place] [address] Performed By: #### 5 8410-2 ####[facility]ORYCLIA [id number] [address] Nucleated RBC (Bld) [#/Vol] 10*3/uL Normal <0.01 [facility] Comment on above: Order Comment: Speci men Type: BLOOD SPECIMENOrdering Facility: [facility] Address: [address] [place] [address] Performed By: #### 5 8410-2 ####[facility]ORYCLIA [id number] [address] Platelet mean volume (Bld) [Entitic vol] 9.8 fL Normal 9.0-12.7 [facility] Comment on above: Order Comment: Speci men Type: BLOOD SPECIMENOrdering Facility: [facility] Address: [address] [place] [address] Performed By: #### 5 8410-2 ####[facility]ORYCLIA [id number] [address] Platelets (Bld) [#/Vol] 260 10*3/uL Normal 150-400 [facility] Comment on above: Order Comment: Speci men Type: BLOOD SPECIMENOrdering Facility: [facility] Address: [address] [place] [address] Performed By: #### 5 8410-2 ####[facility]ORYCLIA [id number] [address] RBC (Bld) [#/Vol] 2.75 10*6/uL Low 4.20-6.00 [facility] Comment on above: Order Comment: Speci men Type: BLOOD SPECIMENOrdering Facility: [facility] Address: [address] [place] [address] Performed By: #### 5 8410-2 ####[facility] [facility]ATORYCLIA [id number] [address] WBC (Bld) [#/Vol] 11.28 10*3/uL High 3.70-11.00 [facility] Comment on above: Order Comment: Speci men Type: BLOOD SPECIMENOrdering Facility: [facility] Address: [address] [place] [address] Performed By: #### 5 8410-2 ####[facility]ATORYCLIA [id number] [address] XR CHEST 2V FRONTAL/LATon XR CHEST 2V FRONTAL/LAT * * *Final Report* * * DATE OF EXAM: Sep 26 2021 7:48AM [id number] [id number] - XR CHEST 2V FRONTAL/LAT / PROCEDURE REASON: Pneumothorax * * * * Physician Interpretation * * * * EXAMINATION: CHEST RADIOGRAPH (2 VIEW FRONTAL and LATERAL) CLINICAL HISTORY: Pneumothorax MQ: XC2_6 EXAM DATE/TIME: 09/26/2021 7:48 AM COMPARISON: 2 view and single view chest x-ray examinations dated 09/25/2021. RESULT: Lines, tubes, and devices: None. Lungs and pleura: Again demonstrated is moderate size left-sided hydropneumothorax, essentially unchanged, line for differences in technique. Trace right apical pneumothorax, unchanged. Suspect trace right-sided effusion. No new focal airspace consolidation. Cardiomediastinal silhouette: Unchanged. Status post median sternotomy, hardware intact. Bones and soft tissues: Mild multilevel degenerative changes of the thoracic and upper lumbar spine. IMPRESSION: No significant change regarding moderate size left hydropneumothorax or small right apical pneumothorax. Manager Validation: PSCB Transcribe Date/Time: Sep 27 2021 3:41P Dictated by : YARELY HOBBS MD This examination was interpreted and the report reviewed and electronically signed by: YARELY HOBBS MD on Sep 27 2021 3:43PM EST [id number] Normal [facility] ALLIED HEALTHon 09-25-2021 ALLIED HEALTH HNO ID: [id number] Author: RT Karson(R) Service: Radiology Author Type: Technologist Type: Allied Health Filed: 09/25/2021 2:20 PM Note Text: Radiology Service Progress Note PATIENT NAME: Radha Brennan DATE OF SERVICE: September 25, 2021 TIME: 2:20 PM PATIENT IDENTITY VERIFICATION COMPLETED USING TWO (2) IDENTIFIERS: Name and Date of confirmed by patient verbally and Name and Date of confirmed by identification band. FALL SCREENING: Has the patient had 2 falls in the last year or 1 fall with injury or currently using an Ambulatory Assistive Device (Walker, Cane, Wheelchair, Crutches, etc.)? Inpatient: Screened on floor PATIENT GENDER DATA: Male PATIENT RELEVANT IMPLANT DATA REVIEWED: Not Applicable RADIOLOGY DEPARTMENT: General X-ray: Exam(s) Completed: Chest X-Ray PERIPHERAL IV DATA: Not applicable SIGNED BY: RT Martha(R) September 25, 2021 2:20 PM Normal [facility] ALLIED HEALTH HNO ID: [id number] Author: RT Darío(R) Service: Radiology Author Type: Technologist Type: Allied Health Filed: 09/25/2021 7:37 AM Note Text: Radiology Service Progress Note PATIENT NAME: Radha Brennan DATE OF SERVICE: September 25, 2021 TIME: 7:36 AM PATIENT IDENTITY VERIFICATION COMPLETED USING TWO (2) IDENTIFIERS: Name and Date of confirmed by patient verbally and Name and Date of confirmed by identification band. FALL SCREENING: Has the patient had 2 falls in the last year or 1 fall with injury or currently using an Ambulatory Assistive Device (Walker, Cane, Wheelchair, Crutches, etc.)? Inpatient: Screened on floor PATIENT GENDER DATA: Male PATIENT RELEVANT IMPLANT DATA REVIEWED: Not Applicable RADIOLOGY DEPARTMENT: General X-ray: Exam(s) Completed: Chest X-Ray PERIPHERAL IV DATA: Not applicable SIGNED BY:RT Mary Jane(R) September 25, 2021 7:36 AM Normal [facility] Basic metabolic 2000 panelon 09-25-2021 Anion gap [Moles/Vol] 6 mmol/L Low 9-18 [facility] Comment on above: Order Comment: Speci men Type: BLOOD SPECIMENOrdering Facility: [facility] Address: [address] [place] [address] Performed By: #### 2 4321-2 ####[facility]ORATORYCLIA [id number] [place] [address] [place] Calcium [Mass/Vol] 7.9 mg/dL Low 8.5-10.2 [facility] Comment on above: Order Comment: Speci men Type: BLOOD SPECIMENOrdering Facility: [facility] Address: [address] [place] [address] Performed By: #### 2 4321-2 ####[facility]ORATORYCLIA [id number] [place] [address] [place] Chloride [Moles/Vol] 103 mmol/L Normal 97-105 [facility] Comment on above: Order Comment: Speci men Type: BLOOD SPECIMENOrdering Facility: [facility] Address: [address] [address] Performed By: #### 2 4321-2 ####[facility]ORATORYCLIA [id number] [address] OF [facility] CO2 [Moles/Vol] 29 mmol/L Normal 22-30 [facility] Comment on above: Order Comment: Speci men Type: BLOOD SPECIMENOrdering Facility: [facility] Address: [address] [place] [address] Performed By: #### 2 4321-2 ####[facility]ORATORYCLIA [id number] [address] [place] Creatinine [Mass/Vol] 0.86 mg/dL Normal 0.73-1.22 [facility] Comment on above: Order Comment: Speci men Type: BLOOD SPECIMENOrdering Facility: [facility] Address: [address] [place] [address] Performed By: #### 2 4321-2 ####[facility]ORATORYCLIA [id number] [address] ESTIMATED GLOMERULAR FILTRATION RATE 95 mL/min/1.73m??? Normal >=60 [facility] Comment on above: Order Comment: Speci men Type: BLOOD SPECIMENOrdering Facility: [facility] Address: [address] [place] [address] Result Comment: Teena mated Glomerular Filtration Rate (eGFR) is calculated using the 2020 CKD-EPI creatinine equation. This equation utilizes serum creatinine, sex, and age as parameters. The creatinine assay has traceable calibration to isotope dilution-mass spectrometry. Refer to KDIGO guidelines for clinical interpretation. In patients with unstable renal function, e.g. those with acute kidney injury, the eGFR may not accurately reflect actual GFR. Performed By: #### 2 4321-2 ####[facility]ATORYCLIA [id number] [address] [place] Glucose [Mass/Vol] 109 mg/dL High 74-99 [facility] Comment on above: Order Comment: Speci men Type: BLOOD SPECIMENOrdering Facility: [facility] Address: [address] [place] [address] Result Comment: The [place] Diabetes Association (ADA) provides guidance for cutoff values for fasting glucose and random glucose. The ADA defines fasting as no caloric intake for at least 8 hours. Fasting plasma glucose results between 100 to 125 mg/dL indicate increased risk for diabetes (prediabetes). Fasting plasma glucose results greater than or equal to 126 mg/dL meet the criteria for diagnosis of diabetes. In the absence of unequivocal hyperglycemia, results should be confirmed by repeat testing. In a patient with classic symptoms of hyperglycemia or hyperglycemic crisis, random plasma glucose results greater than or equal to 200 mg/dL meet the criteria for diagnosis of diabetes. Reference: Standards of Medical Care in Diabetes 2016, [place] Diabetes Association. Diabetes Care. 2016.39(Suppl 1). Performed By: #### 2 4321-2 ####[facility]ATORYCLIA [id number] [address] [place] Potassium [Moles/Vol] 4.1 mmol/L Normal 3.7-5.1 [facility] Comment on above: Order Comment: Speci men Type: BLOOD SPECIMENOrdering Facility: [facility] Address: [address] [place] [address] Performed By: #### 2 1-2 ####[facility]ORATORYCLIA [id number] [address] [place] Sodium [Moles/Vol] 138 mmol/L Normal 136-144 [facility] Comment on above: Order Comment: Anam perez Type: BLOOD SPECIMENOrdering Facility: [facility] Address: [address] [place] [address] Performed By: #### 2 1-2 ####[facility]ORATORYCLIA [id number] [address] STATES [facility] Urea nitrogen [Mass/Vol] 10 mg/dL Normal 9-24 [facility] Comment on above: Order Comment: Anam perez Type: BLOOD SPECIMENOrdering Facility: [facility] Address: [address] [place] [address] Performed By: #### 2 4321-2 ####[facility]ORATORYCLIA [id number] [address] [place] CASE MANAGEMon 09-25-2021 CASE MANAGEM HNO ID: [id number] Author: SISI Charles Service: Social Work 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 Type: Care Mgt Progress Note Filed: 09/25/2021 10:34 AM Note Text: CARE MANAGEMENT PROGRESS NOTE SERVICE DATE: 09/25/2021 SERVICE TIME: 10:32 AM LOS: 4 days IMM Follow Up Copy Given: Yes Copy given to:: Patient Method: In Person IMM letter given. Patient voiced understanding. Met with patient to discuss transportation when he is released cab voucher vs wheelchair van. Patient prefers wheelchair van to [place] since he is post surgery.Will follow. [facility] has accepted whenever he is discharged. SIGNATURE: SISI Charles PATIENT NAME: Radha Brennan DATE: September 25, 2021 TIME: 10:31 AM PAGER/CONTACT #: [phone] Normal [facility] CBC panel Auto (Bld)on 09-25 Erythrocyte distribution width (RBC) [Ratio] 13.8 % Normal 11.5-15.0 [facility] Comment on above: Order Comment: Anam perez Type: BLOOD SPECIMENOrdering Facility: [facility] Address: [address] [address] Performed By: #### 5 8410-2 ####[facility]ORATORYCLIA [id number] [place] [address] [place] Hematocrit (Bld) [Volume fraction] 23.0 % Low 39.0-51.0 [facility] Comment on above: Order Comment: Anam perez Type: BLOOD SPECIMENOrdering Facility: [facility] Address: [address] [address] Performed By: #### 5 8410-2 ####[facility]ORATORYCLIA [id number] [place] [address] [place] Hemoglobin (Bld) [Mass/Vol] 7.7 g/dL Low 13.0-17.0 [facility] Comment on above: Order Comment: Anam perez Type: BLOOD SPECIMENOrdering Facility: [facility] Address: [address] [address] Performed By: #### 5 8410-2 ####[facility]ORATORYCLIA [id number] [address] MCH (RBC) [Entitic mass] 33.0 pg Normal 26.0-34.0 [facility] Comment on above: Order Comment: Speci men Type: BLOOD SPECIMENOrdering Facility: [facility] Address: [address] [place] [address] Performed By: #### 5 8410-2 ####[facility]ORATORYCLIA [id number] [address] MCHC (RBC) [Mass/Vol] 33.5 g/dL Normal 30.5-36.0 [facility] Comment on above: Order Comment: Speci men Type: BLOOD SPECIMENOrdering Facility: [facility] Address: [address] [place] [address] Performed By: #### 5 8410-2 ####[facility]ATORYCLIA [id number] [address] MCV (RBC) [Entitic vol] 98.7 fL Normal 80.0-100.0 [facility] Comment on above: Order Comment: Speci men Type: BLOOD SPECIMENOrdering Facility: [facility] Address: [address] [place] [address] Performed By: #### 5 8410-2 ####[facility]ATORYCLIA [id number] [address] Nucleated RBC (Bld) [#/Vol] 10*3/uL Normal <0.01 [facility] Comment on above: Order Comment: Speci men Type: BLOOD SPECIMENOrdering Facility: [facility] Address: [address] [place] [address] Performed By: #### 5 8410-2 ####[facility]ATORYCLIA [id number] [address] Platelet mean volume (Bld) [Entitic vol] 10.4 fL Normal 9.0-12.7 [facility] Comment on above: Order Comment: Speci men Type: BLOOD SPECIMENOrdering Facility: [facility] Address: [address] [place] [address] Performed By: #### 5 8410-2 ####[facility]ATORYCLIA [id number] [address] Platelets (Bld) [#/Vol] 213 10*3/uL Normal 150-400 [facility] Comment on above: Order Comment: Speci men Type: BLOOD SPECIMENOrdering Facility: [facility] Address: [address] [place] [address] Performed By: #### 5 8410-2 ####[facility]ATORYCLIA [id number] [address] RBC (Bld) [#/Vol] 2.33 10*6/uL Low 4.20-6.00 [facility] Comment on above: Order Comment: Speci men Type: BLOOD SPECIMENOrdering Facility: [facility] Address: [address] [place] [address] Performed By: #### 5 8410-2 ####[facility]ATORYCLIA [id number] [address] WBC (Bld) [#/Vol] 10.05 10*3/uL Normal 3.70-11.00 [facility] Comment on above: Order Comment: Speci men Type: BLOOD SPECIMENOrdering Facility: [facility] Address: [address] [place] [address] Performed By: #### 5 8410-2 ####[facility]ATORYCLIA [id number] [address] NURSING PROGon 09-25-2021 NURSING PROG HNO ID: [id number] Author: Steve Kingston RN Service: Nursing Author Type: Registered Nurse Type: Nursing Progress Note Filed: 09/25/2021 4:47 PM Note Text: -- Summary: Transfer to 4200 -- Pt arrived via with a staff member. Telemetry unit applied. Pt is A AND O x 4. Pt was oriented to 4200, tv remote, phone, call light. Bed lowest position with SR up x 2. Will monitor cardiac rhythm and safety. Normal [facility] NUTRITIONon 09-25-2021 NUTRITION HNO ID: [id number] Author: Frank Fisher RD Service: Nutrition Therapy Author Type: Registered Dietitian Type: Nutrition Filed: 09/25/2021 1:38 PM Note Text: NUTRITION THERAPY PROGRESS NOTE SERVICE DATE: 09/25/2021 SERVICE TIME: 1150 Nutrition Assessment: Recommended Malnutrition Diagnosis: Severe Protein-Calorie Malnutrition (09/22/21 0802 : Lidia Puentes RD) Estimated kilocalorie needs: 0655-3702 Calorie Calculation Method: 25-30 kcals/kg Estimated protein needs (grams): 78-98 Grams protein determined by: 1.2 - 1.5 g/kg Care Plan: Continue current diet Supplements: Ensure Enlive Monitor and Evaluation: Meet greater than 75% of estimated needs;Monitor bowel function;Monitor fluid/electrolyte balance;Monitor labs, I/Os, vital signs, weight Discharge Recommendations: Diet;Oral Supplements Diet: heart healthy Oral Supplements: high susannah/protien supplement of choice 2-3x/day between meals. Interval History: LOS day 4, last reviewed by JORJE on 09/22. POD#4 CABG x 3 with once episode of convulsions on 09/22 and low hgb on 09/23, remains in CVICU for monitoring. Average ~50% of meals since surgery documented and improving+ ensure enlive TID. Last BM 09/24. Meds and labs reviewed. Anthropometrics: Height: 172.7 cm (5' 8) Weight: 69.8 kg (153 lb 12.8 oz) Dosing Weight: 64.7 kg (142 lb 10.2 oz) Usual Weight: 62.6 kg (138 lb) (Patient reports UBW 135 lbs) Over the last 3 months Usual Weight Obtained From: Chart Review Body mass index is 23.39 kg/m?. Normal (Low for age <23 for age >65) Weight change percentage over time: No significant weight changes. Patient also denies any weight changes Intake History: Current Intake: Less than 75% estimated energy needs Over: x 3 days. PT reports drinking 100% of supplement, love the chocolate but only ~50% of meals. Encouraged to keep trying to eat more, educated on importance of susannah/protein, menu provided + kitchen extension. Diet Orders (From admission, onward) Start Ordered 09/22/21 1315 DIET SUPPLEMENTS START NOW Question Answer Comment Supplement 1 ENSURE ENLIVE CHOCOLATE Supplement 1 Frequency 7. BREAKFAST, LUNCH, DINNER 09/22/21 1302 09/22/21 1015 DIET HEART HEALTHY START NOW Question: Heart Healthy Answer: 2 GM SODIUM (LOW SAT FAT) 09/22/21 1005 MNT Billing: $ Reassessment: 1-15 minutes SIGNATURE: Frank Fisher RD PATIENT NAME: Radha Brennan DATE: September 25, 2021 TIME: 10:12 AM Normal [facility] XR CHEST 1V FRONTALon 2021 XR CHEST 1V FRONTAL * * *Final Report* * * DATE OF EXAM: Sep 25 2021 2:22PM [id number] [id number] - XR CHEST 1V FRONTAL / PROCEDURE REASON: Pneumothorax * * * * Physician Interpretation * * * * EXAMINATION: CHEST RADIOGRAPH (SINGLE VIEW AP OR PA) CLINICAL HISTORY: Follow-up left-sided pneumothorax. MQ: XC1_5 Comparison: 09/25/2021 at 07 45. RESULT: Lines, tubes, and devices: Overlying environmental monitoring technician leads. Intact median sternotomy wires. Previously noted right internal jugular central line has been removed. Lungs and pleura: Persistent moderate size left-sided pneumothorax. If there has been any change, it may be minimally larger. Less fluid seen layering dependently. Trace right apical pneumothorax. Stable. Cardiomediastinal silhouette: Stable. Other: No significant additional findings. IMPRESSION: Persistent left-sided pneumothorax which is moderate in degree. If there is been any change since prior study, it is minimally larger. Stable trace right apical pneumothorax. Manager Validation: ISAÍAS Transcribe Date/Time: Sep 25 2021 2:33P Dictated by : DAPHNE WILLS MD This examination was interpreted and the report reviewed and electronically signed by: DAPHNE WILLS MD on Sep 25 2021 2:38PM EST [id number] Normal [facility] XR CHEST 2V FRONTAL/LATon XR CHEST 2V FRONTAL/LAT * * *Final Report* * * DATE OF EXAM: Sep 25 2021 7:37AM [id number] [id number] - XR CHEST 2V FRONTAL/LAT / PROCEDURE REASON: Post-operative / post-procedure assessment, asymptomatic * * * * Physician Interpretation * * * * EXAMINATION: CHEST RADIOGRAPH (2 VIEW FRONTAL and LATERAL) CLINICAL HISTORY: Post-operative / post-procedure assessment, asymptomatic MQ: XC2_6 EXAM DATE/TIME: 09/25/2021 7:37 AM COMPARISON: AP chest 09/24/2021 04:18 hours. RESULT: Lines, tubes, and devices: Right IJ central venous catheter in stable position. Median sternotomy wires again noted. Lungs and pleura: Moderate sized left pneumothorax with associated pleural effusion. Minimal right apical pneumothorax. No definite right pleural effusion. No focal pulmonary consolidation. Cardiomediastinal silhouette: Within normal limits and unchanged. Bones and soft tissues: Unremarkable. IMPRESSION: 1. Mild to moderate left pneumothorax with mild left pleural effusion (hydropneumothorax). 2. Minimal right apical pneumothorax. URGENT RESULTS Acuity: Urgent Communication: Communicated with Tami Luna on 09/25/2021 8:17 AM via verbal communication. Manager Validation: [facility] MEDICAL CENTERDrea Transcribe Date/Time: Sep 25 2021 8:10A Dictated by : KHALIDA ARREDONDO MD This examination was interpreted and the report reviewed and electronically signed by: KHALIDA ARREDONDO MD on Sep 25 2021 8:18AM EST [id number] Normal [facility] ALLIED HEALTHon 09-24-2021 ALLIED HEALTH HNO ID: [id number] Author: RT Octavio(R) Service: Radiology Author Type: Technologist Type: Allied Health Filed: 09/24/2021 4:49 AM Note Text: Radiology Service Progress Note PATIENT NAME: Radha Brennan DATE OF SERVICE: September 24, 2021 TIME: 4:49 AM PATIENT IDENTITY VERIFICATION COMPLETED USING TWO (2) IDENTIFIERS: Name and Date of confirmed by patient verbally and Name and Date of confirmed by identification band. FALL SCREENING: Has the patient had 2 falls in the last year or 1 fall with injury or currently using an Ambulatory Assistive Device (Walker, Cane, Wheelchair, Crutches, etc.)? Inpatient: Screened on floor PATIENT GENDER DATA: Male PATIENT RELEVANT IMPLANT DATA REVIEWED: Not Applicable RADIOLOGY DEPARTMENT: General X-ray: Exam(s) Completed: Chest X-Ray PERIPHERAL IV DATA: Not applicable SIGNED BY: RT Octavio(R) September 24, 2021 4:49 AM Normal [facility] Basic metabolic 2000 [facility] Anion gap [Moles/Vol] 5 mmol/L Low 9-18 [facility] Comment on above: Order Comment: Speci men Type: BLOOD SPECIMENOrdering Facility: [facility] Address: [address] [place] [address] Performed By: #### 2 4321-2 ####[facility]ATORYCLIA [id number] [place] [address] [place] Calcium [Mass/Vol] 7.8 mg/dL Low 8.5-10.2 [facility] Comment on above: Order Comment: Speci men Type: BLOOD SPECIMENOrdering Facility: [facility] Address: [address] [place] [address] Performed By: #### 2 4321-2 ####[facility]ATORYCLIA [id number] [place] [address] [place] Chloride [Moles/Vol] 103 mmol/L Normal 97-105 [facility] Comment on above: Order Comment: Speci men Type: BLOOD SPECIMENOrdering Facility: [facility] Address: [address] [address] Performed By: #### 2 4321-2 ####[facility]ATORYCLIA [id number] [address] [place] CO2 [Moles/Vol] 29 mmol/L Normal 22-30 [facility] Comment on above: Order Comment: Speci men Type: BLOOD SPECIMENOrdering Facility: [facility] Address: [address] [place] [address] Performed By: #### 2 4321-2 ####[facility]ATORYCLIA [id number] [address] [place] Creatinine [Mass/Vol] 0.79 mg/dL Normal 0.73-1.22 [facility] Comment on above: Order Comment: Speci men Type: BLOOD SPECIMENOrdering Facility: [facility] Address: [address] [place] [address] Performed By: #### 2 4321-2 ####[facility]ITAL[facility] [id number] [address] ESTIMATED GLOMERULAR FILTRATION RATE 97 mL/min/1.73m??? Normal >=60 [facility] Comment on above: Order Comment: Speci men Type: BLOOD SPECIMENOrdering Facility: [facility] Address: [address] [place] [address] Result Comment: Teena mated Glomerular Filtration Rate (eGFR) is calculated using the 2020 CKD-EPI creatinine equation. This equation utilizes serum creatinine, sex, and age as parameters. The creatinine assay has traceable calibration to isotope dilution-mass spectrometry. Refer to KDIGO guidelines for clinical interpretation. In patients with unstable renal function, e.g. those with acute kidney injury, the eGFR may not accurately reflect actual GFR. Performed By: #### 2 4321-2 ####[facility]ATORYCLIA [id number] [address] OF [facility] Glucose [Mass/Vol] 94 mg/dL Normal 74-99 [facility] Comment on above: Order Comment: Speci men Type: BLOOD SPECIMENOrdering Facility: [facility] Address: [address] [address] Result Comment: The [place] Diabetes [employer] (ADA) provides guidance for cutoff values for fasting glucose and random glucose. The ADA defines fasting as no caloric intake for at least 8 hours. Fasting plasma glucose results between 100 to 125 mg/dL indicate increased risk for diabetes (prediabetes). Fasting plasma glucose results greater than or equal to 126 mg/dL meet the criteria for diagnosis of diabetes. In the absence of unequivocal hyperglycemia, results should be confirmed by repeat testing. In a patient with classic symptoms of hyperglycemia or hyperglycemic crisis, random plasma glucose results greater than or equal to 200 mg/dL meet the criteria for diagnosis of diabetes. Reference: Standards of Medical Care in Diabetes 2016, [place] [employer]. Diabetes Care. 2016.39(Suppl 1). Performed By: #### 2 4321-2 ####[facility]ATORYCLIA [id number] [place] [address] [place] Potassium [Moles/Vol] 3.6 mmol/L Low 3.7-5.1 [facility] Comment on above: Order Comment: Speci men Type: BLOOD SPECIMENOrdering Facility: [facility] Address: [address] [address] Performed By: #### 2 1-2 ####[facility]ORATORYCLIA [id number] [address] [place] Sodium [Moles/Vol] 137 mmol/L Normal 136-144 [facility] Comment on above: Order Comment: Speci men Type: BLOOD SPECIMENOrdering Facility: [facility] Address: [address] [address] Performed By: #### 2 1-2 ####[facility] LABORATORYCLIA [id number] [place] [address] [place] Urea nitrogen [Mass/Vol] 13 mg/dL Normal 9-24 [facility] Comment on above: Order Comment: Speci men Type: BLOOD SPECIMENOrdering Facility: [facility] Address: [address] [address] Performed By: #### 2 4321-2 ####[facility]ATORYCLIA [id number] [address] CBC panel Auto (Bld)on 09-24 Erythrocyte distribution width (RBC) [Ratio] 13.9 % Normal 11.5-15.0 [facility] Comment on above: Order Comment: Speci men Type: BLOOD SPECIMENOrdering Facility: [facility] Address: [address] [place] [address] Performed By: #### 5 8410-2 ####[facility]ATORYCLIA [id number] [address] Hematocrit (Bld) [Volume fraction] 22.3 % Low 39.0-51.0 [facility] Comment on above: Order Comment: Speci men Type: BLOOD SPECIMENOrdering Facility: [facility] Address: [address] [place] [address] Performed By: #### 5 8410-2 ####[facility]ATORYCLIA [id number] [address] Hemoglobin (Bld) [Mass/Vol] 7.3 g/dL Low 13.0-17.0 [facility] Comment on above: Order Comment: Speci men Type: BLOOD SPECIMENOrdering Facility: [facility] Address: [address] [place] [address] Performed By: #### 5 8410-2 ####[facility]ATORYCLIA [id number] [address] MCH (RBC) [Entitic mass] 31.6 pg Normal 26.0-34.0 [facility] Comment on above: Order Comment: Speci men Type: BLOOD SPECIMENOrdering Facility: [facility] Address: [address] [place] [address] Performed By: #### 5 8410-2 ####[facility]ATORYCLIA [id number] [address] [place] MCHC (RBC) [Mass/Vol] 32.7 g/dL Normal 30.5-36.0 [facility] Comment on above: Order Comment: Speci men Type: BLOOD SPECIMENOrdering Facility: [facility] Address: [address] [address] Performed By: #### 5 8410-2 ####[facility]ORATORYCLIA [id number] [address] [place] [facility] MCV (RBC) [Entitic vol] 96.5 fL Normal 80.0-100.0 [facility] Comment on above: Order Comment: Speci men Type: BLOOD SPECIMENOrdering Facility: [facility] Address: [address] [place] [address] Performed By: #### 5 8410-2 ####[facility]ORATORYCLIA [id number] [address] OF [facility] Nucleated RBC (Bld) [#/Vol] 10*3/uL Normal <0.01 [facility] Comment on above: Order Comment: Speci men Type: BLOOD SPECIMENOrdering Facility: [facility] Address: [address] [address] Performed By: #### 5 8410-2 ####[facility]ATORYCLIA [id number] [address] Platelet mean volume (Bld) [Entitic vol] 10.6 fL Normal 9.0-12.7 [facility] Comment on above: Order Comment: Speci men Type: BLOOD SPECIMENOrdering Facility: [facility] Address: [address] [place] [address] Performed By: #### 5 8410-2 ####[facility]ATORYCLIA [id number] [address] [place] Platelets (Bld) [#/Vol] 165 10*3/uL Normal 150-400 [facility] Comment on above: Order Comment: Speci men Type: BLOOD SPECIMENOrdering Facility: [facility] Address: [address] [place] [address] Performed By: #### 5 8410-2 ####[facility]ATORYCLIA [id number] [address] OF [facility] RBC (Bld) [#/Vol] 2.31 10*6/uL Low 4.20-6.00 [facility] Comment on above: Order Comment: Speci men Type: BLOOD SPECIMENOrdering Facility: [facility] Address: [address] [place] [address] Performed By: #### 5 8410-2 ####[facility]ATORYCLIA [id number] [address] WBC (Bld) [#/Vol] 10.46 10*3/uL Normal 3.70-11.00 [facility] Comment on above: Order Comment: Speci men Type: BLOOD SPECIMENOrdering Facility: [facility] Address: [address] [place] [address] Performed By: #### 5 8410-2 ####[facility]ORATORYCLIA [id number] [address] PT EDon 09-24-2021 PT ED HNO ID: [id number] Author: Hayley Bynum DTR Service: Nutrition Therapy Author Type: Liaison Inspection Laboratory Assistant Type: Patient Education Filed: 09/24/2021 2:24 PM Note Text: NUTRITION THERAPY PATIENT EDUCATION SERVICE DATE: 09/24/2021 SERVICE TIME: 1153 TOPIC: Diet: heart healthy LEARNING ASSESSMENT Individuals Assessed: Patient Preferred Learning Method: : No Preference Barriers to Learning: : None Evident LEARNING RESPONSE Instruction Provided to: Patient Patient / Family Response: Refuses to Follow Instruction Method of Instruction: Individual instruction Written instruction - handouts Verbal instruction Material(s) Provided to Patient: Mediterranean Diet Guidelines and Nutrition Therapy instruction material: Your Sodium-Controlled Diet Patient is resitant to change, reinforced good habits of consuming legumes and fruits. Follow-Up Plan: Recommend - Recommend continued instruction and follow up as directed Referral (Recommendation): Primary Care Provider MNT Billing: $ Routine Care : 16-30 minutes SIGNATURE: Hayley Bynum DTR PATIENT NAME: Radha Brennan DATE: September 24, 2021 TIME: 2:22 PM PAGER: Normal [facility] XR CHEST 1V FRONTALon 2021 XR CHEST 1V FRONTAL * * *Final Report* * * DATE OF EXAM: Sep 24 2021 4:50AM AKX 5290 - XR CHEST 1V FRONTAL / PROCEDURE REASON: Post-operative / post-procedure assessment, asymptomatic * * * * Physician Interpretation * * * * EXAMINATION: CHEST RADIOGRAPH (SINGLE VIEW AP OR PA) CLINICAL HISTORY: Post-operative / post-procedure assessment, asymptomatic MQ: XC1_5 Comparison: 09/23/2021 at 04 31 RESULT: Lines, tubes, and devices: Status post removal of left-sided chest tube. Right internal jugular central line with tip in the distal superior vena cava. Overlying environmental monitoring technician leads. Intact median sternotomy wires. Lungs and pleura: Trace left apical pneumothorax. Trace bilateral pleural effusions. Cardiomediastinal silhouette: Stable. Other: No significant additional findings. IMPRESSION: Status post removal left-sided chest tube. Trace left apical pneumothorax. Manager Validation: PSCB Transcribe Date/Time: Sep 24 2021 7:11A Dictated by : DAPHNE WILLS MD This examination was interpreted and the report reviewed and electronically signed by: DAPHNE WILLS MD on Sep 24 2021 7:12AM EST [id number] Normal [facility] ALLIED HEALTHon 09-23-2021 ALLIED HEALTH HNO ID: [id number] Author: RT Dixon(Bill) Service: Radiology Author Type: Technologist Type: [facility] Filed: 09/23/2021 4:52 AM Note Text: Radiology Service Progress Note PATIENT NAME: Radha Brennan DATE OF SERVICE: September 23, 2021 TIME: 4:52 AM PATIENT IDENTITY VERIFICATION COMPLETED USING TWO (2) IDENTIFIERS: Name and Date of confirmed by patient verbally and Name and Date of confirmed by identification band. FALL SCREENING: Has the patient had 2 falls in the last year or 1 fall with injury or currently using an Ambulatory Assistive Device (Walker, Cane, Wheelchair, Crutches, etc.)? Inpatient: Screened on floor PATIENT GENDER DATA: Male PATIENT RELEVANT IMPLANT DATA REVIEWED: Not Applicable RADIOLOGY DEPARTMENT: General X-ray: Exam(s) Completed: Chest X-Ray PERIPHERAL IV DATA: Not applicable SIGNED BY: RT Dixon(R) September 23, 2021 4:52 AM Normal [facility] ANES POSTPROC EVALon 022 ANES POSTPROC EVAL HNO ID: [id number] Author: Prosper Escalante MD Service: Anesthesiology Author Type: Physician Type: Anesthesia Postprocedure Evaluation Filed: 09/23/2021 4:00 PM Note Text: POST ANESTHESIA EVALUATION NOTE : 1955 Procedure Summary Date: 09/21/21 Room / Location: [facility] OR OR Anesthesia Start: 2132 Anesthesia Stop: 09/22/218099 Procedures: BYPASS GRAFT ARTERY CORONARY OFF PUMP TWO ARTERIAL GRAFTS (N/A Chest) BYPASS GRAFT ARTERY CORONARY OFF PUMP VENOUS GRAFT(S) AND ARTERIAL GRAFT(S) SINGLE VEIN GRAFT (N/A Chest) ENDOSCOPIC HARVEST VEIN FOR CORONARY ARTERY BYPASS PROCEDURE (N/A ) Diagnosis: Coronary artery disease with angina pectoris, unspecified vessel or lesion type, unspecified whether catawba or transplanted heart (HCC) Surgeons: Gregorio Dominguez MD Responsible Provider: Prosper Escalante MD Anesthesia Type: general ASA Status: 4 - Emergent Anesthesia Type: general Airway Type: ETT Last Vitals Vitals Value Taken Time BP 106/56 09/23/21 1500 Temp 36 ?C (96.8 ?F) 09/23/21 1559 Pulse 84 09/23/21 1559 Resp 15 09/23/21 1559 SpO2 99 % 09/23/21 1559 Vitals shown include unvalidated device data. Post Anesthesia Patient Status Patient Evaluation: ICU. PACU/ICU Patient Condition: guarded. Anticipated Disposition: ICU planned admission. Neurological Status: sedated. Pulmonary Status: on mechanical ventilation (invasive ventilation) Airway Control: intubated on mechanical ventilation. Cardiovascular Status: guarded. medication administered: inotropes vasopressors Pain Management: clinically adequate Postoperative Hydration: acceptable. Post Operative Nausea/Vomiting Status: no significant post operative nausea or vomiting Anesthetic Observations: Recommendation: continue current plan of care and further care per PACU/ICU/floor team. Anesthesia Observations No Documentation SIGNATURE: Prosper Escalante MD PATIENT NAME: Radha Brennan DATE: September 23, 2021 TIME: 3:59 PM CSN: [id number] Normal [facility] Basic metabolic 2000 panelon 09-23-2021 Anion gap [Moles/Vol] 6 mmol/L Low 9-18 [facility] Comment on above: Order Comment: Speci men Type: BLOOD SPECIMENOrdering Facility: [facility] Address: [address] [place] [address] Performed By: #### 1 9123-9, 75759-7 ####[facility]ORATORYCLIA [id number] [place] [address] [place] Calcium [Mass/Vol] 7.4 mg/dL Low 8.5-10.2 [facility] Comment on above: Order Comment: Speci men Type: BLOOD SPECIMENOrdering Facility: [facility] Address: [address] [place] [address] Performed By: #### 1 9123-9, 37831-0 ####[facility]ORATORYCLIA [id number] [place] [address] [place] Chloride [Moles/Vol] 99 mmol/L Normal 97-105 [facility] Comment on above: Order Comment: Speci men Type: BLOOD SPECIMENOrdering Facility: [facility] Address: [address] [place] [address] Performed By: #### 1 239, 17092-7 ####[facility]ORATORYCLIA [id number] [place] [address] [place] CO2 [Moles/Vol] 26 mmol/L Normal 22-30 [facility] Comment on above: Order Comment: Speci men Type: BLOOD SPECIMENOrdering Facility: [facility] Address: [address] [place] [address] Performed By: #### 1 9123-9, 96933-8 ####[facility]ATORYCLIA [id number] [place] [address] [place] Creatinine [Mass/Vol] 0.83 mg/dL Normal 0.73-1.22 [facility] Comment on above: Order Comment: Speci men Type: BLOOD SPECIMENOrdering Facility: [facility] Address: [address] [address] Performed By: #### 1 9123-9, 50317-6 ####[facility]PITALCLIA [id number] [address] [id number] [facility] ESTIMATED GLOMERULAR FILTRATION RATE 96 mL/min/1.73m??? Normal >=60 [facility] Comment on above: Order Comment: Anam perez Type: BLOOD SPECIMENOrdering Facility: [facility] Address: [address] [place] [address] Result Comment: Teena mated Glomerular Filtration Rate (eGFR) is calculated using the 2020 CKD-EPI creatinine equation. This equation utilizes serum creatinine, sex, and age as parameters. The creatinine assay has traceable calibration to isotope dilution-mass spectrometry. Refer to KDIGO guidelines for clinical interpretation. In patients with unstable renal function, e.g. those with acute kidney injury, the eGFR may not accurately reflect actual GFR. Performed By: #### 1 9123-9, 68276-4 ####[facility]ITALIA [id number] [address] [place] Glucose [Mass/Vol] 122 mg/dL High 74-99 [facility] Comment on above: Order Comment: Anam perez Type: BLOOD SPECIMENOrdering Facility: [facility] Address: [address] [place] [address] Result Comment: The [place] [employer] (ADA) provides guidance for cutoff values for fasting glucose and random glucose. The ADA defines fasting as no caloric intake for at least 8 hours. Fasting plasma glucose results between 100 to 125 mg/dL indicate increased risk for diabetes (prediabetes). Fasting plasma glucose results greater than or equal to 126 mg/dL meet the criteria for diagnosis of diabetes. In the absence of unequivocal hyperglycemia, results should be confirmed by repeat testing. In a patient with classic symptoms of hyperglycemia or hyperglycemic crisis, random plasma glucose results greater than or equal to 200 mg/dL meet the criteria for diagnosis of diabetes. Reference: Standards of Medical Care in Diabetes 2016, [place] [employer] Association. Diabetes Care. 2016.39(Suppl 1). Performed By: #### 1 9123-9, 85596-4 ####[facility]ORATORYCLIA [id number] [address] [place] Potassium [Moles/Vol] 4.1 mmol/L Normal 3.7-5.1 [facility] Comment on above: Order Comment: Speci men Type: BLOOD SPECIMENOrdering Facility: [facility] Address: [address] [place] [address] Performed By: #### 1 9123-9, 14442-5 ####[facility]ORATORYCLIA [id number] [address] STATES OF [facility] Sodium [Moles/Vol] 131 mmol/L Low 136-144 [facility] Comment on above: Order Comment: Speci men Type: BLOOD SPECIMENOrdering Facility: [facility] Address: [address] [place] [address] Performed By: #### 1 9123-9, 76364-0 ####[facility]ORATORYCLIA [id number] [address] STATES [facility] Urea nitrogen [Mass/Vol] 13 mg/dL Normal 9-24 [facility] Comment on above: Order Comment: Speci men Type: BLOOD SPECIMENOrdering Facility: [facility] Address: [address] [place] [address] Performed By: #### 1 9123-9, 26444-5 ####[facility]ORATORYCLIA [id number] [address] STATES [facility] CBC panel Auto (Bld)on 09-23 Erythrocyte distribution width (RBC) [Ratio] 13.1 % Normal 11.5-15.0 [facility] Comment on above: Order Comment: Speci men Type: BLOOD SPECIMENOrdering Facility: [facility] Address: [address] [place] [address] Performed By: #### 5 8410-2 ####[facility]ORATORYCLIA [id number] [address] [place] Hematocrit (Bld) [Volume fraction] 19.7 % Low 39.0-51.0 [facility] Comment on above: Order Comment: Speci men Type: BLOOD SPECIMENOrdering Facility: [facility] Address: [address] [place] [address] Performed By: #### 5 8410-2 ####[facility]ORATORYCLIA [id number] [address] OF [facility] Hemoglobin (Bld) [Mass/Vol] 6.6 g/dL Low 13.0-17.0 [facility] Comment on above: Order Comment: Speci men Type: BLOOD SPECIMENOrdering Facility: [facility] Address: [address] [place] [address] Performed By: #### 5 8410-2 ####[facility]ORATORYCLIA [id number] [address] STATES OF [facility] MCH (RBC) [Entitic mass] 32.0 pg Normal 26.0-34.0 [facility] Comment on above: Order Comment: Speci men Type: BLOOD SPECIMENOrdering Facility: [facility] Address: [address] [place] [address] Performed By: #### 5 8410-2 ####[facility]ATORYCLIA [id number] [address] MCHC (RBC) [Mass/Vol] 33.5 g/dL Normal 30.5-36.0 [facility] Comment on above: Order Comment: Speci men Type: BLOOD SPECIMENOrdering Facility: [facility] Address: [address] [place] [address] Performed By: #### 5 8410-2 ####[facility]ORATORYCLIA [id number] [address] [place] MCV (RBC) [Entitic vol] 95.6 fL Normal 80.0-100.0 [facility] Comment on above: Order Comment: Speci men Type: BLOOD SPECIMENOrdering Facility: [facility] Address: [address] [place] [address] Performed By: #### 5 8410-2 ####[facility]ATORYCLIA [id number] [address] [place] Nucleated RBC (Bld) [#/Vol] 10*3/uL Normal <0.01 [facility] Comment on above: Order Comment: Speci men Type: BLOOD SPECIMENOrdering Facility: [facility] Address: [address] [place] [address] Performed By: #### 5 8410-2 ####[facility]ORATORYCLIA [id number] [address] [place] Platelet mean volume (Bld) [Entitic vol] 10.1 fL Normal 9.0-12.7 [facility] Comment on above: Order Comment: Speci men Type: BLOOD SPECIMENOrdering Facility: [facility] Address: [address] [place] [address] Performed By: #### 5 8410-2 ####[facility]ATORYCLIA [id number] [address] [place] Platelets (Bld) [#/Vol] 146 10*3/uL Low 150-400 [facility] Comment on above: Order Comment: Speci men Type: BLOOD SPECIMENOrdering Facility: [facility] Address: [address] [place] [address] Performed By: #### 5 8410-2 ####[facility]ATORYCLIA [id number] [address] [place] RBC (Bld) [#/Vol] 2.06 10*6/uL Low 4.20-6.00 [facility] Comment on above: Order Comment: Speci men Type: BLOOD SPECIMENOrdering Facility: [facility] Address: [address] [place] [address] Performed By: #### 5 8410-2 ####[facility]ATORYCLIA [id number] [address] [place] WBC (Bld) [#/Vol] 12.33 10*3/uL High 3.70-11.00 [facility] Comment on above: Order Comment: Speci men Type: BLOOD SPECIMENOrdering Facility: [facility] Address: [address] [place], [place] [id number] Performed By: #### 5 8410-2 ####[facility]ORATORYCLIA [id number] [place] [address] [place] Magnesium SerPl-mCncon 09-23 Magnesium [Mass/Vol] 1.8 mg/dL Normal 1.7-2.3 [facility] Comment on above: Order Comment: Speci men Type: BLOOD SPECIMENOrdering Facility: [facility] Address: [address] [place], [place] [id number] Performed By: #### 1 9123-9, 52086-0 ####[facility]ORATORYCLIA [id number] [address] [id number] [place] XR CHEST 1V FRONTALon 2021 XR CHEST 1V FRONTAL * * *Final Report* * * DATE OF EXAM: Sep 23 2021 4:53AM AKX 5290 - XR CHEST 1V FRONTAL / PROCEDURE REASON: Post-operative / post-procedure assessment, asymptomatic * * * * Physician Interpretation * * * * EXAMINATION: CHEST RADIOGRAPH (SINGLE VIEW AP OR PA) CLINICAL HISTORY: Post-operative / post-procedure assessment, asymptomatic MQ: XC1_5 Comparison: 09/22/2021 at 04 42 RESULT: Lines, tubes, and devices: Status post extubation. Right internal jugular central line with tip in the distal superior vena cava. Bilateral chest tubes in stable position. Mediastinal drain not visualized. Intact median sternotomy wires. Overlying environmental monitoring technician leads. Lungs and pleura: Trace right apical pneumothorax. Trace left apical pneumothorax. Minimal atelectasis at the lung bases. Cardiomediastinal silhouette: Stable. Other: No significant additional findings. IMPRESSION: Status post extubation. Trace bilateral apical pneumothoraces. Manager Validation: PSCB Transcribe Date/Time: Sep 23 2021 6:57A Dictated by : DAPHNE WILLS MD This examination was interpreted and the report reviewed and electronically signed by: DAPHNE WILLS MD on Sep 23 2021 6:58AM EST [id number] Normal [facility] ALLIED HEALTHon 09-22-2021 ALLIED HEALTH HNO ID: [id number] Author: RT Dixon(R) Service: Radiology Author Type: Technologist Type: [facility] Filed: 09/22/2021 4:57 AM Note Text: Radiology Service Progress Note PATIENT NAME: Radha Brennan DATE OF SERVICE: September 22, 2021 TIME: 4:57 AM PATIENT IDENTITY VERIFICATION COMPLETED USING TWO (2) IDENTIFIERS: Name and Date of confirmed by identification band. FALL SCREENING: Has the patient had 2 falls in the last year or 1 fall with injury or currently using an Ambulatory Assistive Device (Walker, Cane, Wheelchair, Crutches, etc.)? Inpatient: Screened on floor PATIENT GENDER DATA: Male PATIENT RELEVANT IMPLANT DATA REVIEWED: Not Applicable RADIOLOGY DEPARTMENT: General X-ray: Exam(s) Completed: Chest X-Ray PERIPHERAL IV DATA: Not applicable SIGNED BY: RT Dixon(R) September 22, 2021 4:57 AM [facility] HNO ID: [id number] Author: RT Ford(R) Service: Radiology Author Type: Technologist Type: [facility] Filed: 09/22/2021 12:39 AM Note Text: Radiology Service Progress Note PATIENT NAME: Radha Brennan DATE OF SERVICE: September 22, 2021 TIME: 12:39 AM PATIENT IDENTITY VERIFICATION COMPLETED USING TWO (2) IDENTIFIERS: Name and Date of confirmed by identification band. FALL SCREENING: Has the patient had 2 falls in the last year or 1 fall with injury or currently using an Ambulatory Assistive Device (Walker, Cane, Wheelchair, Crutches, etc.)? Inpatient: Screened on floor PATIENT GENDER DATA: Male PATIENT RELEVANT IMPLANT DATA REVIEWED: Not Applicable RADIOLOGY DEPARTMENT: General X-ray: Exam(s) Completed: Chest X-Ray PERIPHERAL IV DATA: Not applicable SIGNED BY: RT Ford(R) September 22, 2021 12:39 AM [facility] ANES POSTPROC EVALon 022 ANES POSTPROC EVAL HNO ID: [id number] Author: Dean Ashley DO Service: Anesthesiology Author Type: Physician Type: Anesthesia Postprocedure Evaluation Filed: 09/22/2021 11:32 AM Note Text: POST ANESTHESIA EVALUATION NOTE : 1955 Procedure Summary Date: 09/21/21 Room / Location: [facility] OR OR Anesthesia Start: 0748 Anesthesia Stop: 1356 Procedure: BYPASS GRAFT ARTERY CORONARY ON-PUMP THREE CORONARY ARTERIAL GRAFTS (N/A Chest) Diagnosis: Coronary artery disease involving catawba coronary artery of catawba heart without angina pectoris Surgeons: Gregorio Dominguez MD Responsible Provider: Dean Ashley DO Anesthesia Type: general ASA Status: 4 Anesthesia Type: general Airway Type: ETT Last Vitals Vitals Value Taken Time BP 100/38 09/22/21 1115 Temp 38.1 ?C (100.58 ?F) 09/22/21 1130 Pulse 79 09/22/21 1130 Resp 20 09/22/21 1130 SpO2 99 % 09/22/21 1129 Vitals shown include unvalidated device data. Post Anesthesia Patient Status Anticipated Disposition: ICU planned admission. Pulmonary Status: on mechanical ventilation (invasive ventilation) Airway Control: intubated on mechanical ventilation. Cardiovascular Status: unstable. medication administered: inotropes vasopressors Pain Management: clinically adequate Postoperative Hydration: acceptable. Intraoperative Events: acute post-hemorrhagic anemia coagulopathy- acquired coagulation factor deficiency Recommendation: further care per PACU/ICU/floor team. Other Remarks: Was extubated postoperatively, but brought back to OR for bleeding and required reintubation. . Anesthesia Observations No Documentation SIGNATURE: Dean Ashley DO PATIENT NAME: Radha Brennan DATE: September 22, 2021 TIME: 11:30 AM CSN: [id number] Normal [facility] ANES PRE-OPon 09-22-2021 ANES PRE-OP HNO ID: [id number] Author: Prosper Escalante MD Service: Anesthesiology Author Type: Physician Type: Anesthesia Preprocedure Evaluation Filed: 09/21/2021 10:20 PM Note Text: ANESTHESIOLOGY DAY OF SURGERY NOTE : 1955 Procedure Information Anesthesia Start Date/Time: 09/21/212132 Procedure: BRING BACK FOR A BLEED; BYPASS GRAFT ARTERY CORONARY ON-PUMP USING VENOUS GRAFT(S) AND ARTERIAL GRAFT(S); TWO VENOUS GRAFTS (N/A Chest) Location: [facility] OR OR Surgeons: Gregorio Dominguez MD Estimated body mass index is 21.69 kg/m? as calculated from the following: Height as of this encounter: 172.7 cm (5' 8). Weight as of this encounter: 64.7 kg (142 lb 10.2 oz). Most recent hematocrit and potassium results: Hematocrit 28.4 09/21/2021 Hematocrit (POCT) 32 09/21/2021 Potassium 4.3 09/21/2021 Potassium (POCT) 4.1 09/21/2021 Relevant Problems CARDIO (+) CAD in cata[place] artery (+) 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 (HCC) NEURO-PSYCH (+) Cerebrovascular accident (CVA) (HCC) (+) Seizures (HCC) I - PHYSICAL EVALUATION AIRWAY Patient intubated: No. Tracheostomy tube not present Mallampati: II. TM distance: >3 FB. Neck ROM: full ROM without neurological symptoms. Mouth opening: adequate. Short neck: no. Thick neck: no DENTAL Dental findings: edentulous. Additional exam findings: no II - ANESTHESIA PLAN ASA Score: 4; emergent. Anesthetic Plan: general Airway type: ETT The patient is not a current smoker. NPO Status: adequate Beta Millie Administration of chronic beta millie medication planned. Monitoring plan: invasive hemodynamic monitoring and standard ASA. Anesthetic plan additional comments: Post CABG bleeding, on pressors but stable currently. Anemic. Low fibrinogen - cryo given in ICU.. Monitoring method: arterial Line, CVL and GINA GINA details: patient denies history of stricture or varices Postoperative analgesic plan: remain intubated, go to ICU, parenteral or oral opioids and multimodal analgesia. Informed Consent Anesthetic risks, benefits, alternatives, personnel and consent discussed: yes. Patient / Responsible Alliance Party agrees to proceed: yes Patient / Surrogate agrees to blood products: Yes Significant changes in the patient condition since the History and Physical, not otherwise documented in primary service progress note: no. Potential Anesthesia issues that may suggest increased risk of complications or contraindication to planned procedure: none. Vitals Value Taken Time BP 114/55 09/21/212111 Pulse 76 09/21/212127 Resp 17 09/21/212127 Temp 37.6 ?C (99.68 ?F) 09/21/212127 SpO2 100 % 09/21/212126 Vitals shown include unvalidated device data. Facility-Administered Medications as of 09/21/2021 Medication Dose Route Frequency - [COMPLETED] gentamicin 80 mg in NaCl 0.9% irrigation bottle 1,000 mL IRRIGATION ONCE - [MAR Hold due to Transfer] lamoTRIgine 50 mg tab(s) (LaMICtal) 50 mg ORAL DAILY - [MAR Hold due to Transfer] primidone 50 mg tab(s) (MYSOLINE) 50 mg ORAL BID - [MAR Hold due to Transfer] enoxaparin 40 mg injection (LOVENOX) 40 mg SUBCUTANEOUS DAILY - [MAR Hold due to Transfer] sodium chloride 0.9 % (flush) 10 mL (BD POSIFLUSH) 10 mL INTRAVENOUS q 12 H - [MAR Hold due to Transfer] sodium chloride 0.9 % (flush) 20 mL (BD POSIFLUSH) 20 mL INTRAVENOUS PRN - [MAR Hold due to Transfer] NaCl 0.9% iv flush bag 20 mL INTRAVENOUS PRN - [MAR Hold due to Transfer] lactated ringers iv infusion 50 mL/hr INTRAVENOUS CONTINUOUS - [MAR Hold due to Transfer] insulin regular 100 units in NaCl 0.9% 100 mL - AK CARD SURG NOMOGRAM 0-12 Units/hr INTRAVENOUS CONTINUOUS - [MAR Hold due to Transfer] insulin regular human 10 Units bolus from bag 10 Units INTRAVENOUS PRN - [MAR Hold due to Transfer] dextrose 10% iv bolus 12.5 g INTRAVENOUS PRN - [MAR Hold due to Transfer] albuterol 2.5 mg /3 mL (0.083 %) 2.5 mg (PROVENTIL) 2.5 mg INHALATION q 2 H PRN - [MAR Hold due to Transfer] aspirin 162 mg chewable tab(s) 162 mg ORAL DAILY - [MAR Hold due to Transfer] atorvastatin 40 mg tab(s) (LIPITOR) 40 mg ORAL AT BEDTIME - [MAR Hold due to Transfer] vancomycin iv piggyback 1 g in D5W 200 mL (VANCOCIN) 0.015 g/kg/dose INTRAVENOUS q 12 HR - [MAR Hold due to Transfer] pantoprazole 40 mg injection (PROTONIX) 40 mg INTRAVENOUS DAILY (6 AM) - [MAR Hold due to Transfer] ondansetron (PF) 4 mg injection (ZOFRAN) 4 mg INTRAVENOUS q 6 H PRN - [MAR Hold due to Transfer] potassium chloride iv piggyback 20 mEq/100 mL 20 mEq INTRAVENOUS PRN - [MAR Hold due to Transfer] magnesium sulfate 2 g in sterile water 50 ml 2 g INTRAVENOUS PRN(NO DISPENSE) - [COMPLETED] midazolam (PF) 2 mg injection (VERSED) 2 mg INTRAVENOUS q 6 H PRN - [JUN Hold due to Transfer] acetaminophen 1,000 mg tab(s) (TYLENOL) 1,000 mg ORAL QID - [JUN Hold due to Transfer] gabapentin 200 mg cap(s) (N (more content not included)... Normal [facility] ARTERIAL BLOOD GASESon 09-22 BASE DEFICIT, ARTERIAL -1 mmol/L Normal -2-0 [facility] Comment on above: Order Comment: Speci men Type: ARTERIAL BLOOD SPECIMENOrdering Facility: [facility] Address: [address] [place] [address] Performed By: #### A LLBG ####[facility]ORATORYCLIA [id number] [address] [place] Body temperature 97.7 [degF] Normal [facility] Comment on above: Order Comment: Speci men Type: ARTERIAL BLOOD SPECIMENOrdering Facility: [facility] Address: [address] [place] [address] Performed By: #### A LLBG ####[facility]ORATORYCLIA [id number] [address] [place] CALCIUM IONIZED, PH CORRECTED 1.10 mmol/L Normal 1.08-1.30 [facility] Comment on above: Order Comment: Speci men Type: ARTERIAL BLOOD SPECIMENOrdering Facility: [facility] Address: [address] [place] [address] Performed By: #### A LLBG ####[facility]ORATORYCLIA [id number] [address] [place] Calcium.ionized (BldV) [Mass/Vol] 1.12 mmol/L Normal 1.08-1.30 [facility] Comment on above: Order Comment: Speci men Type: ARTERIAL BLOOD SPECIMENOrdering Facility: [facility] Address: [address] [place] [address] Performed By: #### A LLBG ####[facility]ORATORYCLIA [id number] [address] [place] Carboxyhemoglobin (BldA) [Mass fraction] 1.0 % Normal 0.0-2.0 [facility] Comment on above: Order Comment: Speci men Type: ARTERIAL BLOOD SPECIMENOrdering Facility: [facility] Address: [address] [place] [address] Result Comment: Carb oxyhemoglobin Reference Range for Smokers: 2.0-8.0% Performed By: #### A LLBG ####[facility]ORATORYCLIA [id number] [address] [place] CO2 (Bld) [Partial pressure] 44 mm Hg Normal 36-46 [facility] Comment on above: Order Comment: Speci men Type: ARTERIAL BLOOD SPECIMENOrdering Facility: [facility] Address: [address] [place] [address] Performed By: #### A LLBG ####[facility]ORYCLIA [id number] [address] [place] CO2 [Moles/Vol] 23 mmol/L Normal 22-28 [facility] Comment on above: Order Comment: Speci men Type: ARTERIAL BLOOD SPECIMENOrdering Facility: [facility] Address: [address] [place] [address] Performed By: #### A LLBG ####[facility]ATORYCLIA [id number] [address] [place] CO2 adjusted to patient's actual temperature (Bld) [Partial pressure] 43 mmHg Normal 36-46 [facility] Comment on above: Order Comment: Speci men Type: ARTERIAL BLOOD SPECIMENOrdering Facility: [facility] Address: [address] [place] [address] Performed By: #### A LLBG ####[facility]ORATORYCLIA [id number] [address] [place] FIO2 30 % Normal [facility] Comment on above: Order Comment: Speci men Type: ARTERIAL BLOOD SPECIMENOrdering Facility: [facility] Address: [address] [address] Performed By: #### A LLBG ####[facility]ATORYCLIA [id number] [address] [place] Glucose [Mass/Vol] 98 mg/dL Normal 60-105 [facility] Comment on above: Order Comment: Speci men Type: ARTERIAL BLOOD SPECIMENOrdering Facility: [facility] Address: [address] [place] [address] Performed By: #### A LLBG ####[facility]ORATORYCLIA [id number] [address] [place] HCO3 (Bld) [Moles/Vol] 24 mmol/L Normal 22-26 [facility] Comment on above: Order Comment: Speci men Type: ARTERIAL BLOOD SPECIMENOrdering Facility: [facility] Address: [address] [place] [address] Performed By: #### A LLBG ####[facility]ATORYCLIA [id number] [address] [place] Hematocrit (Bld) [Volume fraction] 24.7 % Low 39.0-51.0 [facility] Comment on above: Order Comment: Speci men Type: ARTERIAL BLOOD SPECIMENOrdering Facility: [facility] Address: [address] [place] [address] Performed By: #### A LLBG ####[facility]ATORYCLIA [id number] [address] [place] Hemoglobin (Bld) [Mass/Vol] 7.9 g/dL Low 13.0-17.0 [facility] Comment on above: Order Comment: Speci men Type: ARTERIAL BLOOD SPECIMENOrdering Facility: [facility] Address: [address] [place] [address] Performed By: #### A LLBG ####[facility]ATORYCLIA [id number] [address] [place] Methemoglobin (Bld) [Mass fraction] % Normal 0.0-1.5 [facility] Comment on above: Order Comment: Speci men Type: ARTERIAL BLOOD SPECIMENOrdering Facility: [facility] Address: [address] [place] [address] Performed By: #### A LLBG ####[facility]ATORYCLIA [id number] [address] [place] O2 THERAPY Ventilator Normal [facility] Comment on above: Order Comment: Speci men Type: ARTERIAL BLOOD SPECIMENOrdering Facility: [facility] Address: [address] [address] Performed By: #### A LLBG ####[facility]ATORYCLIA [id number] [address] [place] Oxygen (Bld) [Partial pressure] 91 mm Hg Normal 85-95 [facility] Comment on above: Order Comment: Speci men Type: ARTERIAL BLOOD SPECIMENOrdering Facility: [facility] Address: [address] [place] [address] Performed By: #### A LLBG ####[facility]ORYCLIA [id number] [address] [place] Oxygen adjusted to patient's actual temperature (Bld) [Partial pressure] 88 mmHg Normal 85-95 [facility] Comment on above: Order Comment: Speci men Type: ARTERIAL BLOOD SPECIMENOrdering Facility: [facility] Address: [address] [place] [address] Performed By: #### A LLBG ####[facility]ATORYCLIA [id number] [address] [place] OXYGEN SATURATION, ARTERIAL 97 % Normal 95-98 [facility] Comment on above: Order Comment: Speci men Type: ARTERIAL BLOOD SPECIMENOrdering Facility: [facility] Address: [address] [place] [address] Performed By: #### A LLBG ####[facility]ORYCLIA [id number] [address] [place] Oxyhemoglobin (BldA) [Mass fraction] 95 % Normal 95-98 [facility] Comment on above: Order Comment: Speci men Type: ARTERIAL BLOOD SPECIMENOrdering Facility: [facility] Address: [address] [place] [address] Performed By: #### A LLBG ####[facility] LABORATORYCLIA [id number] [address] [place] pH (Bld) 7.36 [pH] Normal 7.35-7.45 [facility] Comment on above: Order Comment: Speci men Type: ARTERIAL BLOOD SPECIMENOrdering Facility: [facility] Address: [address] [place] [address] Performed By: #### A LLBG ####[facility]ATORYCLIA [id number] [address] [place] pH adjusted to patient's actual temperature (Bld) 7.37 Normal 7.35-7.45 [facility] Comment on above: Order Comment: Speci men Type: ARTERIAL BLOOD SPECIMENOrdering Facility: [facility] Address: [address] [place] [address] Performed By: #### A LLBG ####[facility]ORATORYCLIA [id number] [place] [address] [place] Potassium [Moles/Vol] 3.5 mmol/L Normal 3.5-5.0 [facility] Comment on above: Order Comment: Speci men Type: ARTERIAL BLOOD SPECIMENOrdering Facility: [facility] Address: [address] [place] [address] Performed By: #### A LLBG ####[facility] LABORATORYCLIA [id number] [address] [place] Sodium [Moles/Vol] 134 mmol/L Low 136-144 [facility] Comment on above: Order Comment: Speci men Type: ARTERIAL BLOOD SPECIMENOrdering Facility: [facility] Address: [address] [place] [address] Performed By: #### A LLBG ####[facility] LABORATORYCLIA [id number] [place] [address] [place] BRIEF OP NOTon 09-22-2021 BRIEF OP NOT HNO ID: [id number] Author: Gregorio Dominguez MD Service: Cardiac Surgery Author Type: Physician Type: Brief Op Note Filed: 09/21/2021 11:10 PM Note Text: CARDIOTHORACIC BRIEF OP NOTE LOG ID: [id number] SURGERY/PROCEDURE DATE: 09/21/2021 - 09/22/2021 INCISION/PROCEDURE START TIME: 10:10 PM INCISION CLOSE/PROCEDURE END TIME: SURGEON(S) AND SWAGE TENDER(S): Surgeon(s) and Role: * Gregorio Dominguez MD - Primary Physician Vegetables Cook: SANJUANA Turner PA, first assist: Tasks: assisted with opening, closing, retracting, suturing No qualified resident available PROCEDURES AND ANESTHESIA: Procedure(s) and Anesthesia Type: * BRING BACK FOR A BLEED; EXPLORATION OF MEDIASTINUM, CONTROL OF HEMMORRHAGE OF LEFT ABBEY BED, AND EVACUATION OF LEFT HEMOTHORAX - General ANESTHESIA: General BRIEF FINDINGS: bleeding from small artery left BABEY bed; left hemothorax; no other sites of bleeding ESTIMATED BLOOD LOSS: Minimal SPECIMENS: None COMPLICATIONS: None PREOPERATIVE DIAGNOSIS: s/p CABG; post op mediastinal hemorrhage POSTOPERATIVE DIAGNOSIS: s/p CABG; post op mediastinal hemorrhage SIGNATURE: Gregorio Dominguez MD PATIENT NAME: Radha Brennan DATE: September 21, 2021 TIME: 11:07 PM PAGER/CONTACT #: [phone] Normal [facility] Basic metabolic 2000 panelon 09-22-2021 Anion gap [Moles/Vol] 6 mmol/L Low 9-18 [facility] Comment on above: Order Comment: Speci men Type: BLOOD SPECIMENOrdering Facility: [facility] Address: [address] [place], [place] [id number] Performed By: #### 2 4321-2, 09428-5 ####[facility]ATORYCLIA [id number] [place] [address] [place] Calcium [Mass/Vol] 7.5 mg/dL Low 8.5-10.2 [facility] Comment on above: Order Comment: Speci men Type: BLOOD SPECIMENOrdering Facility: [facility] Address: [address] [address] Performed By: #### 2 432-2, ####[facility]ATORYCLIA [id number] [place] [address] [place] Chloride [Moles/Vol] 106 mmol/L High 97-105 [facility] Comment on above: Order Comment: Speci men Type: BLOOD SPECIMENOrdering Facility: [facility] Address: [address] [place] [address] Performed By: #### 2 4322, ####[facility]ATORYCLIA [id number] [address] OF [facility] CO2 [Moles/Vol] 22 mmol/L Normal 22-30 [facility] Comment on above: Order Comment: Speci men Type: BLOOD SPECIMENOrdering Facility: [facility] Address: [address] [place] [address] Performed By: #### 2 4322, ####[facility]ATORYCLIA [id number] [address] [place] Creatinine [Mass/Vol] 0.80 mg/dL Normal 0.73-1.22 [facility] Comment on above: Order Comment: Speci men Type: BLOOD SPECIMENOrdering Facility: [facility] Address: [address] [place] [address] Performed By: #### 2 4322, ####[facility]ATORYCLIA [id number] [address] ESTIMATED GLOMERULAR FILTRATION RATE 97 mL/min/1.73m??? Normal >=60 [facility] Comment on above: Order Comment: Speci men Type: BLOOD SPECIMENOrdering Facility: [facility] Address: [address] [place] [address] Result Comment: Teena mated Glomerular Filtration Rate (eGFR) is calculated using the 2020 CKD-EPI creatinine equation. This equation utilizes serum creatinine, sex, and age as parameters. The creatinine assay has traceable calibration to isotope dilution-mass spectrometry. Refer to KDIGO guidelines for clinical interpretation. In patients with unstable renal function, e.g. those with acute kidney injury, the eGFR may not accurately reflect actual GFR. Performed By: #### 2 4320-05, ####[facility]ATORYCLIA [id number] [place] [address] [place] Glucose [Mass/Vol] 92 mg/dL Normal 74-99 [facility] Comment on above: Order Comment: Speci men Type: BLOOD SPECIMENOrdering Facility: [facility] Address: [address] [place], [place] [address] Result Comment: The [place] Diabetes [employer] (ADA) provides guidance for cutoff values for fasting glucose and random glucose. The ADA defines fasting as no caloric intake for at least 8 hours. Fasting plasma glucose results between 100 to 125 mg/dL indicate increased risk for diabetes (prediabetes). Fasting plasma glucose results greater than or equal to 126 mg/dL meet the criteria for diagnosis of diabetes. In the absence of unequivocal hyperglycemia, results should be confirmed by repeat testing. In a patient with classic symptoms of hyperglycemia or hyperglycemic crisis, random plasma glucose results greater than or equal to 200 mg/dL meet the criteria for diagnosis of diabetes. Reference: Standards of Medical Care in Diabetes 2016, [place] [employer] Association. Diabetes Care. 2016.39(Suppl 1). Performed By: #### 2 4320-05, ####[facility]ATORYCLIA [id number] [place] [address] [place] Potassium [Moles/Vol] 4.5 mmol/L Normal 3.7-5.1 [facility] Comment on above: Order Comment: Speci men Type: BLOOD SPECIMENOrdering Facility: [facility] Address: [address] [place] [address] Performed By: #### 2 4320-05, ####[facility]ATORYCLIA [id number] [place] [address] [place] Sodium [Moles/Vol] 134 mmol/L Low 136-144 [facility] Comment on above: Order Comment: Speci men Type: BLOOD SPECIMENOrdering Facility: [facility] Address: [address] [place] [address] Performed By: #### 2 4321-2, ####[facility]ATORYCLIA [id number] [place] [address] [place] Urea nitrogen [Mass/Vol] 15 mg/dL Normal 9-24 [facility] Comment on above: Order Comment: Speci men Type: BLOOD SPECIMENOrdering Facility: [facility] Address: [address] [place] [address] Performed By: #### 2 4321-2, ####[facility] LABORATORYCLIA [id number] [place] [address] [place] Anion gap [Moles/Vol] 7 mmol/L Low 9-18 [facility] Comment on above: Order Comment: Speci men Type: BLOOD SPECIMENOrdering Facility: [facility] Address: [address] [place] [address] Performed By: #### 2 4321-2 ####[facility] LABORATORYCLIA [id number] [place] [address] [place] Calcium [Mass/Vol] 7.1 mg/dL Low 8.5-10.2 [facility] Comment on above: Order Comment: Speci men Type: BLOOD SPECIMENOrdering Facility: [facility] Address: [address] [place] [address] Performed By: #### 2 4321-2 ####[facility]ATORYCLIA [id number] [place] [address] [place] Chloride [Moles/Vol] 107 mmol/L High 97-105 [facility] Comment on above: Order Comment: Speci men Type: BLOOD SPECIMENOrdering Facility: [facility] Address: [address] [place] [address] Performed By: #### 2 4321-2 ####[facility] LABORATORYCLIA [id number] [place] [address] [place] CO2 [Moles/Vol] 23 mmol/L Normal 22-30 [facility] Comment on above: Order Comment: Speci men Type: BLOOD SPECIMENOrdering Facility: [facility] Address: [address] [address] Performed By: #### 2 4321-2 ####[facility]ATORYCLIA [id number] [address] [place] Creatinine [Mass/Vol] 0.90 mg/dL Normal 0.73-1.22 [facility] Comment on above: Order Comment: Speci men Type: BLOOD SPECIMENOrdering Facility: [facility] Address: [address] [place] [address] Performed By: #### 2 4321-2 ####[facility]ITALCLIA [id number] [address] ESTIMATED GLOMERULAR FILTRATION RATE 94 mL/min/1.73m??? Normal >=60 [facility] Comment on above: Order Comment: Speci men Type: BLOOD SPECIMENOrdering Facility: [facility] Address: [address] [place] [address] Result Comment: Teena mated Glomerular Filtration Rate (eGFR) is calculated using the 2020 CKD-EPI creatinine equation. This equation utilizes serum creatinine, sex, and age as parameters. The creatinine assay has traceable calibration to isotope dilution-mass spectrometry. Refer to KDIGO guidelines for clinical interpretation. In patients with unstable renal function, e.g. those with acute kidney injury, the eGFR may not accurately reflect actual GFR. Performed By: #### 2 4321-2 ####[facility]ATORYCLIA [id number] [address] OF [facility] Glucose [Mass/Vol] 89 mg/dL Normal 74-99 [facility] Comment on above: Order Comment: Speci chris Type: BLOOD SPECIMENOrdering Facility: [facility] Address: [address] [address] Result Comment: The [place] Diabetes Association (ADA) provides guidance for cutoff values for fasting glucose and random glucose. The ADA defines fasting as no caloric intake for at least 8 hours. Fasting plasma glucose results between 100 to 125 mg/dL indicate increased risk for diabetes (prediabetes). Fasting plasma glucose results greater than or equal to 126 mg/dL meet the criteria for diagnosis of diabetes. In the absence of unequivocal hyperglycemia, results should be confirmed by repeat testing. In a patient with classic symptoms of hyperglycemia or hyperglycemic crisis, random plasma glucose results greater than or equal to 200 mg/dL meet the criteria for diagnosis of diabetes. Reference: Standards of Medical Care in Diabetes 2016, [place] [employer]. Diabetes Care. 2016.39(Suppl 1). Performed By: #### 2 4321-2 ####[facility] LABORATORYCLIA [id number] [place] [address] [place] Potassium [Moles/Vol] 4.9 mmol/L Normal 3.7-5.1 [facility] Comment on above: Order Comment: Speci chris Type: BLOOD SPECIMENOrdering Facility: [facility] Address: [address] [place] [address] Performed By: #### 2 4321-2 ####[facility]ORATORYCLIA [id number] [address] STATES OF [facility] Sodium [Moles/Vol] 137 mmol/L Normal 136-144 [facility] Comment on above: Order Comment: Anam perez Type: BLOOD SPECIMENOrdering Facility: [facility] Address: [address] [place] [address] Performed By: #### 2 4321-2 ####[facility]ATORYCLIA [id number] [address] [place] Urea nitrogen [Mass/Vol] 15 mg/dL Normal 9-24 [facility] Comment on above: Order Comment: Dereki men Type: BLOOD SPECIMENOrdering Facility: [facility] Address: [address] [place] [address] Performed By: #### 2 4321-2 ####[facility]ATORYCLIA [id number] [address] [place] CASE MANAGEMon 09-22-2021 CASE MANAGEM HNO ID: [id number] Author: SERGIO Almanza Service: ? 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 Type: Care Mgt Progress Note Filed: 09/22/2021 12:32 PM Note Text: CCARE MANAGEMENT PROGRESS NOTE SERVICE DATE: 09/22/2021 SERVICE TIME: 12:31 PM LOS: 1 day IMM Follow Up Copy Given: Yes Copy given to:: Patient Method: In Person SW gave pt copy of IMM at bedside, Pt gave verbal confirmation of understanding. Copy sent to admitting. SIGNATURE: SERGIO Almanza PATIENT NAME: Radha Brennan DATE: September 22, 2021 TIME: 12:31 PM PAGER/CONTACT #: [phone] [facility] CASE MGT INIT Gisele 2021 CASE MGT INIT FAIZA HNO ID: [id number] Author: ESRGIO Almanza Service: ? 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 Type: Care Mgt Initial Assessment Filed: 09/22/2021 12:30 PM Note Text: CARE MANAGEMENT: ASSESSMENT AND DISCHARGE PLAN SERVICE DATE: September 22, 2021 SERVICE TIME: 12:25 PM PRIMARY CARE PHYSICIAN: Clement Swanson MD, MD Primary Contact: Extended Emergency Contact Information Primary Emergency Contact: Anthony Brennan Mobile Relation: Brother Secondary Emergency Contact: Malik Brennan Mobile Relation: Daughter ADMISSION STATUS: Inpatient Insurance Provider: [employer] MEDICARE NEEDS PRIOR TO DISCHARGE Needs Prior to Discharge: To Be Determined;Discharge Transportation POTENTIAL TRANSITION PLANS Home;Home Care;To Be Determined Based on clinical judgement, Care Management will address the following needs: Medical;Functional Patient's perception of need for this admission: Unable to answer, somewhat confused ADVANCE DIRECTIVES Current Advance Directive: None Screen Tacker Attempted to Assist with AD Completion: Yes Action: Education Provided MS/BEHAVIOR Baseline Mental Status Prior to this Illness what was the patient's Baseline Mental Status?: Alert AND Oriented Prior to this illness, has anyone described the patient having any of the following behaviors?: Not Applicable Relationship of the informant to the patient:: Self READMISSION Last Discharge Date: N/A Is this Within the Past 30 days? 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 Are there any potential risks or gaps identified by risk/functional/fall,etc. scores in the EMR?: Yes Situation: Pt was scheduled CABG Any potential risks related to substance abuse and/or behavioral health?: No Based on clinical judgement, Care Management will address the following needs: Medical;Functional CAREGIVER ASSESSMENT MEDICAL Medical Needs: Two or more chronic diseases Health Issues Impacting Discharge Plan: Newly diagnosed Newly Diagnosed: CAD in [place]ata[place]ba artery Medication Adherance I am convinced of the importance of my prescription medication: 0 - Agree Completely I worry that my prescription medication will do more harm than good to me : 0 - Disagree Completely I feel financially burdened by my dhl-pv-oougls expenses for my prescription medication:: 0 - Disagree Completely Risk Score: 0 Patient is categorized as: Low risk < 2 Med Adherance Assessement not completed due to: 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 No social discharge barriers identified at this time. No behavioral/cognitive discharge barriers identified at this time. No functional discharge barriers identified at this time. FREEDOM OF CHOICE EXPLAINED: SW described HHC options at bedside, pt unaware of what he would like at d/c at this time Are you interested in bedside delivery of your medications? Yes ASSESSMENT AND PLAN: CECE met with pt at bedside. Pt in [facility] for scheduled CABG. Pt from home in [facility], states the managers of [facility] [employer] and [employer] have been taking care of him and he has been staying with them. Pt experiencing SOB and unable to answer many questions at this time, showed signs of confusion and not knowing why he was in hospital this admission. Pt focused on d/c and going back to work he states. Dispo: Pt does NOT want SNF and would fight if asked he stated. Possible HHC at [place]. Pt needs transportation at d/c. SIGNATURE: SERGIO Almanza PATIENT NAME: Radha Brennan DATE: September 22, 2021 TIME: 12:25 PM CONTACT #: [id number] Normal [facility] CBC panel Auto (Bld)on 09-22 Erythrocyte distribution width (RBC) [Ratio] 13.1 % Normal 11.5-15.0 [facility] Comment on above: Order Comment: Speci men Type: BLOOD SPECIMENOrdering Facility: [facility] Address: [address] [place] [address] Performed By: #### 5 8410-2 ####[facility]ORATORYCLIA [id number] [address] Hematocrit (Bld) [Volume fraction] 23.4 % Low 39.0-51.0 [facility] Comment on above: Order Comment: Speci men Type: BLOOD SPECIMENOrdering Facility: [facility] Address: [address] [place] [address] Performed By: #### 5 8410-2 ####[facility]ATORYCLIA [id number] [address] STATES OF [facility] Hemoglobin (Bld) [Mass/Vol] 7.9 g/dL Low 13.0-17.0 [facility] Comment on above: Order Comment: Speci men Type: BLOOD SPECIMENOrdering Facility: [facility] Address: [address] [place] [address] Performed By: #### 5 8410-2 ####[facility]ATORYCLIA [id number] [address] [place] MCH (RBC) [Entitic mass] 33.2 pg Normal 26.0-34.0 [facility] Comment on above: Order Comment: Speci men Type: BLOOD SPECIMENOrdering Facility: [facility] Address: [address] [place] [address] Performed By: #### 5 8410-2 ####[facility]ATORYCLIA [id number] [address] [place] MCHC (RBC) [Mass/Vol] 33.8 g/dL Normal 30.5-36.0 [facility] Comment on above: Order Comment: Speci men Type: BLOOD SPECIMENOrdering Facility: [facility] Address: [address] [place] [address] Performed By: #### 5 8410-2 ####[facility]ORATORYCLIA [id number] [address] STATES [facility] MCV (RBC) [Entitic vol] 98.3 fL Normal 80.0-100.0 [facility] Comment on above: Order Comment: Speci men Type: BLOOD SPECIMENOrdering Facility: [facility] Address: [address] [place], [place] [address] Performed By: #### 5 8410-2 ####[facility]ATORYCLIA [id number] [address] [place] Nucleated RBC (Bld) [#/Vol] 10*3/uL Normal <0.01 [facility] Comment on above: Order Comment: Speci men Type: BLOOD SPECIMENOrdering Facility: [facility] Address: [address] [place] [address] Performed By: #### 5 8410-2 ####[facility]ATORYCLIA [id number] [address] [place] Platelet mean volume (Bld) [Entitic vol] 10.1 fL Normal 9.0-12.7 [facility] Comment on above: Order Comment: Speci men Type: BLOOD SPECIMENOrdering Facility: [facility] Address: [address] [place], [place] [address] Performed By: #### 5 8410-2 ####[facility]ATORYCLIA [id number] [address] [place] Platelets (Bld) [#/Vol] 203 10*3/uL Normal 150-400 [facility] Comment on above: Order Comment: Speci men Type: BLOOD SPECIMENOrdering Facility: [facility] Address: [address] [place], [place] [address] Performed By: #### 5 8410-2 ####[facility]ATORYCLIA [id number] [address] STATES OF [facility] RBC (Bld) [#/Vol] 2.38 10*6/uL Low 4.20-6.00 [facility] Comment on above: Order Comment: Speci men Type: BLOOD SPECIMENOrdering Facility: [facility] Address: [address] [place] [address] Performed By: #### 5 8410-2 ####[facility]ATORYCLIA [id number] [address] WBC (Bld) [#/Vol] 16.50 10*3/uL High 3.70-11.00 [facility] Comment on above: Order Comment: Speci men Type: BLOOD SPECIMENOrdering Facility: [facility] Address: [address] [place] [address] Performed By: #### 5 8410-2 ####[facility]ATORYCLIA [id number] [address] Erythrocyte distribution width (RBC) [Ratio] 12.8 % Normal 11.5-15.0 [facility] Comment on above: Order Comment: Speci men Type: BLOOD SPECIMENOrdering Facility: [facility] Address: [address] [place] [address] Performed By: #### 5 8410-2 ####[facility]ATORYCLIA [id number] [address] Hematocrit (Bld) [Volume fraction] 23.7 % Low 39.0-51.0 [facility] Comment on above: Order Comment: Speci men Type: BLOOD SPECIMENOrdering Facility: [facility] Address: [address] [place] [address] Performed By: #### 5 8410-2 ####[facility]ATORYCLIA [id number] [address] Hemoglobin (Bld) [Mass/Vol] 7.9 g/dL Low 13.0-17.0 [facility] Comment on above: Order Comment: Speci men Type: BLOOD SPECIMENOrdering Facility: [facility] Address: [address] [place] [address] Performed By: #### 5 8410-2 ####[facility]ATORYCLIA [id number] [address] MCH (RBC) [Entitic mass] 32.4 pg Normal 26.0-34.0 [facility] Comment on above: Order Comment: Speci men Type: BLOOD SPECIMENOrdering Facility: [facility] Address: [address] [place] [address] Performed By: #### 5 8410-2 ####[facility]ATORYCLIA [id number] [address] MCHC (RBC) [Mass/Vol] 33.3 g/dL Normal 30.5-36.0 [facility] Comment on above: Order Comment: Speci men Type: BLOOD SPECIMENOrdering Facility: [facility] Address: [address] [place] [address] Performed By: #### 5 8410-2 ####[facility]ATORYCLIA [id number] [address] MCV (RBC) [Entitic vol] 97.1 fL Normal 80.0-100.0 [facility] Comment on above: Order Comment: Speci men Type: BLOOD SPECIMENOrdering Facility: [facility] Address: [address] [place] [address] Performed By: #### 5 8410-2 ####[facility]ATORYCLIA [id number] [address] Nucleated RBC (Bld) [#/Vol] 10*3/uL Normal <0.01 [facility] Comment on above: Order Comment: Speci men Type: BLOOD SPECIMENOrdering Facility: [facility] Address: [address] [place] [address] Performed By: #### 5 8410-2 ####[facility]ITALCLIA [id number] [address] [place] Platelet mean volume (Bld) [Entitic vol] 9.5 fL Normal 9.0-12.7 [facility] Comment on above: Order Comment: Speci men Type: BLOOD SPECIMENOrdering Facility: [facility] Address: [address] [place] [address] Performed By: #### 5 8410-2 ####[facility]ATORYCLIA [id number] [address] [place] Platelets (Bld) [#/Vol] 189 10*3/uL Normal 150-400 [facility] Comment on above: Order Comment: Speci men Type: BLOOD SPECIMENOrdering Facility: [facility] Address: [address] [place] [address] Performed By: #### 5 8410-2 ####[facility]PITALCLIA [id number] [address] STATES OF [facility] RBC (Bld) [#/Vol] 2.44 10*6/uL Low 4.20-6.00 [facility] Comment on above: Order Comment: Speci men Type: BLOOD SPECIMENOrdering Facility: [facility] Address: [address] [place] [address] Performed By: #### 5 8410-2 ####[facility]ATORYCLIA [id number] [address] [place] WBC (Bld) [#/Vol] 15.29 10*3/uL High 3.70-11.00 [facility] Comment on above: Order Comment: Speci men Type: BLOOD SPECIMENOrdering Facility: [facility] Address: [address] [place] [address] Performed By: #### 5 8410-2 ####[facility]ATORYCLIA [id number] [address] [place] HBV surface Ab IA Ql (S)on 0 09-22-2021 HBV surface Ag Ql (S) Negative Normal Negative [facility] Comment on above: Order Comment: Speci men Type: BLOOD SPECIMENOrdering Facility: External Submitter Address: , , Performed By: #### 1 6128-1, 43672-8 ####[facility]ATORYCLIA [id number] [place], [place] [address] [place] [address] OF [facility] HCV Ab Ser Qlon 09-22-2021 HCV Ab Ql (S) Negative Normal Negative [facility] Comment on above: Order Comment: Speci men Type: BLOOD SPECIMENOrdering Facility: External Submitter Address: , , Performed By: #### 1 6128-1, 01353-0 ####[facility]ATORYCLIA [id number] [address] HIV 1+2 Ab IA Qlon 2 HIV 1 and 2 Ab IA.rapid Nom Normal [facility] Comment on above: Order Comment: Speci men Type: BLOOD SPECIMENOrdering Facility: External Submitter Address: , , Result Comment: Test not indicated. Performed By: #### 3 1201-7 ####[facility]ORYCLIA [id number] [address] HIV 1+2 Ab+HIV1 p24 Ag IA Ql Non-Reactive Normal Nonreactive [facility] Comment on above: Order Comment: Speci men Type: BLOOD SPECIMENOrdering Facility: External Submitter Address: , , Result Comment: [place] Rev. Code 3701.243(E): This information has been disclosed to you from confidential records protected from disclosure by state law. ???You shall make no further disclosure of this information without the specific, written, and informed release of the individual to whom it pertains or as otherwise permitted by state law. A general authorization for the release of medical or other information is not sufficient for the purpose of the release of HIV test results or diagnoses. Performed By: #### 3 1201-7 ####[facility]ATORYCLIA [id number] [address] OF [facility] HIVINT Normal [facility] Comment on above: Order Comment: Speci men Type: BLOOD SPECIMENOrdering Facility: External Submitter Address: , , Result Comment: No e vidence of HIV-1 or HIV-2 infection. Should recent infection be suspected, repeat testing may be considered 2-3 weeks after this draw. Performed By: #### 3 1201-7 ####[facility]ITALCLIA [id number] [address] HIV RAPID SCREENon 2 HIV 1 Ab Ql (S) Negative Normal Non-Reactive : Negative for both HIV1 and HIV2 antibodies. [facility] Comment on above: Order Comment: Speci men Type: BLOOD SPECIMENOrdering Facility: External Submitter Address: , , Result Comment: A no n-reactive result does not preclude the possibility of exposure to HIV or infection with HIV. An antibody response to recent exposure may take several weeks to reach detectable levels with this assay. Screening by an instrument based HIV antigen/antibody combination test is recommended. HIV Information: ???[place] Rev. Code 3701.243(E): This information has been disclosed to you from confidential records protected from disclosure by state law. You shall make no further disclosure of this information without the specific, written, and informed release of the individual to whom it pertains, or as otherwise permitted by state law. A general authorization for the release of medical or other information is not sufficient for the purpose of the release of HIV test results or diagnoses. Performed By: #### M MHHIV ####[facility]ITALIA [id number] [address] HIV P24 ANTIGEN Negative Normal Non-Reactive : Negative for p24 antigen [facility] Comment on above: Order Comment: Speci men Type: BLOOD SPECIMENOrdering Facility: External Submitter Address: , , Performed By: #### M MHHIV ####[facility]ATORYCLIA [id number] [address] [place] Magnesium SerPl-mCncon 09-22 Magnesium [Mass/Vol] 1.9 mg/dL Normal 1.7-2.3 [facility] Comment on above: Order Comment: Speci men Type: BLOOD SPECIMENOrdering Facility: [facility] Address: [address] [place] [address] Performed By: #### 2 4321-2, 89542-5 ####[facility]ATORYCLIA [id number] [address] NURSING PROGon 09-22-2021 NURSING PROG HNO ID: [id number] Author: Mana Miles RN Service: Nursing Author Type: Registered Nurse Type: Nursing Progress Note Filed: 09/22/2021 8:22 AM Note Text: Nursing Progress: Topic: RESTRAINT NON-VIOLENT PATIENT NAME: Radha Brennan PATIENT LOCATION: [id number]/[facility]* The patient demonstrates Attempting to Remove Medical Devices Vital to Medical Stability, Lack of Understanding/Ability to Comply with Safety Directions, Confusion as evidenced by the following behaviors pulling at LDAs/noncompliance with instructions which pose an imminent danger to self or others. The following interventions were attempted but were not effective in protecting the patient's safety: Bed in Low/Locked Position, Call Light Within Reach, Frequent Observation, Pain/Discomfort Relief Next, a comprehensive assessment was performed and warranted placing the patient in Soft Bilateral Wrists, the least restrictive restraint needed to protect the patient's safety. Ongoing safety assessments and evaluation for earliest removal of restraints will be performed. DATE: September 22, 2021 TIME: 8:22 AM Mana Miles RN [facility] NURSING PROG HNO ID: [id number] Author: Veronica Ramirez RN Service: Nursing Author Type: Registered Nurse Type: Nursing Progress Note Filed: 09/22/2021 6:04 AM Note Text: Nursing Progress: Topic: RESTRAINT NON-VIOLENT PATIENT NAME: Radha Brennan PATIENT LOCATION: [id number]/[facility]* The patient demonstrates as evidenced by the following behaviors pulling at et tube which pose an imminent danger to self or others. The following interventions were attempted but were not effective in protecting the patient's safety: Next, a comprehensive assessment was performed and warranted placing the patient in , the least restrictive restraint needed to protect the patient's safety. Ongoing safety assessments and evaluation for earliest removal of restraints will be performed. DATE: September 22, 2021 TIME: 6:04 AM Veronica Ramirez RN [facility] NUTRITIONon 09-22-2021 NUTRITION HNO ID: [id number] Author: Lidia Puentes RD Service: Nutrition Therapy Author Type: Registered Dietitian Type: Nutrition Filed: 09/22/2021 1:00 PM Note Text: NUTRITION THERAPY INITIAL ASSESSMENT SERVICE DATE: 09/22/2021 SERVICE TIME: 10:55 REASON FOR VISIT: Nutrition Consult- ERAS Nutrition Assessment: Recommended Malnutrition Diagnosis: Severe Protein-Calorie Malnutrition In the context of: Acute Illness or Injury Based on: Subcutaneous Fat Loss;Muscle Loss;Insufficient Energy Intake Nutrition Diagnosis: Problem: Increased nutrient needs Related to: Mechanical cause As evidenced by: Procedure/surgery;Depletio n of fat/muscle stores;Anorexia;Intake records;Patient/family self-report Estimated kilocalorie needs: 9067-4536 Calorie Calculation Method: 25-30 kcals/kg Estimated protein needs (grams): 78-98 Grams protein determined by: 1.2 - 1.5 g/kg Care Plan: Follow for diet advancement to goal Supplements: Ensure Enlive TID. Patient does not want Impact AR supplements because they do not come in a chocolate flavor Encouraged oral intake as able Monitor and Evaluation: Meet greater than 75% of estimated needs;Monitor bowel function;Monitor fluid/electrolyte balance;Monitor labs, I/Os, vital signs, weight Discharge Recommendations: Diet;Oral Supplements Diet: Heart Healthy Oral Supplements: High calorie/protein supplement of choice 2-3x/day HPI: Patient admitted to CVICU s/p CABG x 3 on 09/21. Extubated this morning. Currently on 4 L NC. Past medical history as follows 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 (HCC) - 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 (HCC) - LV dysfunction mild - Mixed hyperlipidemia - Seizure (HCC) - Tobacco use disorder Intake History: Nutrition Intake Prior to Admission: Less than 50% estimated energy needs greater than or equal to 3 months (Patient reports usual intake of one meal/day consisting of a ham and cheese sandwich and peanut butter crackers every day. States he has no desire to eat anything else and has been eating this way for 5 years) Current Intake: NPO Over: 1 day LOS for CABG 6/20. Started on heart healthy diet today. No intakes. Patient reports he is not hungry and does not have any appetite Diet Orders (From admission, onward) Start Ordered 09/22/21 1015 DIET HEART HEALTHY START NOW Question: Heart Healthy Answer: 2 GM SODIUM (LOW SAT FAT) 09/22/21 1005 Anthropometrics: Height: 172.7 cm (5' 8) Weight: 64.7 kg (142 lb 10.2 oz) Dosing Weight: 64.7 kg (142 lb 10.2 oz) Usual Weight: 62.6 kg (138 lb) (Patient reports UBW 135 lbs) Over the last 3 months Usual Weight Obtained From: Chart Review Body mass index is 21.69 kg/m?. Normal (Low for age <23 for age >65) Last Wt 09/21/21 : 64.7 kg (142 lb 10.2 oz) 09/15/21 : 63.5 kg (140 lb) 09/11/21 : 61.7 kg (136 lb) 07/16/21 : 62.8 kg (138 lb 8 oz) 06/25/21 : 62.9 kg (138 lb 9.6 oz) Weight change percentage over time: No significant weight changes. Patient also denies any weight changes Physical Exam: Subcutaneous fat loss: Moderate Muscle loss: Severe Potential micronutrient deficiency: No deficiency identified Edema/Ascites: No edema GI Symptoms: Chewing problems (Patient reports his dentures are too big so he has difficulty chewing) Functional Status: Not related to malnutrition status Potential Signs of Inflammation: Denia-operative period;Chronic condition;Critically ill;Tachycardia;Hypothermi a;Leukocytosis MNT Billing: $ Initial Assessment: 1-15 minutes SIGNATURE: Lidia Puentes RD PATIENT NAME: Radha Brennan DATE: September 22, 2021 TIME: 12:57 PM Normal [facility] THERAPY NTon 09-22-2021 THERAPY NT HNO ID: [id number] Author: AKI Batista/L Service: Occupational Therapy Author Type: Occupational Therapist Type: Therapy (PT/OT/Speech/Resp) Filed: 09/22/2021 2:45 PM Note Text: Occupational Therapy Evaluation SERVICE DATE: 09/22/2021 SERVICE TIME: 1328 to 1345 ROOM: [place] [id number] Recommended Discharge Disposition: Home OT Recommended Discharge Disposition Comments: anticipate that patient will be able to return home with increased assistance from neighbors/friends Anticipated Discharge Needs: Physical Assist at Home Physical Assist at Home for: Cleaning;Laundry;Meals;Saf ety;Self Care;Shopping;Transportati on OT 6 Clicks Score: 17 Precautions/Activity Restrictions: Fall Risk;Lines/Tubes/Drains;St ernal Current Hospital Course: 66 y.o male s/p CABG x3 09/21, taken back to OR for continued bleeding, L hemothorax Reason for Hospital Admission: CABG Relevant Past Medical History: CVA, CAD Response to Therapy Interventions: Good participation in activities Continue skilled needs due to: Functional impairment, Safety concerns Occupational Therapy Problem List: Safety Deficits;Impaired Self Care;Decreased Activity Tolerance;Decreased Strength;Functional Mobility Impairment;Balance Impaired Cognition/Communication Deficits Responsiveness: Alert Follows Commands: 1-step Commands, Cueing Needed Cueing to Follow Commands: Minimum Executive Function Deficits: Safety Awareness, Insight to Deficits Insight to Deficits: Minimal impairment Safety Awareness Deficit: Minimal impairment Treatment Interventions: Education;Self Care / Home Management;Energy Conservation Training;Strengthening;Fun ctional Mobility Training;Balance Training Plan for next visit: Bathing training, Dressing training Home Environment Patient Lives With: Self/Alone 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 Planning to stay at [email or web address], spouse is home health aide, reports kids and siblings will stop by during day to assist Patient Report: agreeable to session CURRENT FUNCTIONAL STATUS: Most recent performance Current Activities of Daily Living Assist Level Additional Information Feeding Set Up Grooming Stand By Assistance see below Bathing Upper Body Minimal Assistance Bathing Lower Body Moderate Assistance Dressing Upper Body Minimal Assistance Dressing Lower Body Moderate Assistance Toileting Minimal Assistance Functional Mobility Assist Level Additional Information Rolling Supine to Sit Sit to Supine Scooting Sit to Stand Minimal Assistance Stand to Sit Minimal Assistance Bed to Chair Toilet/Commode Minimal Assistance Shower Functional Mobility Minimal Assistance;Additional Information Wheeled Walker a few steps to commode- educated on safety and fall prevention Blank pineda indicate activity not attempted Range of Motion: WFL Strength: Strength Limitation Comments Strength Limitation Comments: not tested due to sternal precaution, appears weak in arms Balance: Static Standing;Dynamic Standing Static Standing Balance: Fair Patient able to maintain balance with handhold support, may require occasional minimal assistance Dynamic Standing Balance: Fair Patient accepts minimal challenge, able to maintain balance while turning head/trunk Learning/Educational Needs: Discharge Plan;Disease Process;Equipment;Family Education/Training;Functio nal Activities/Mobility;Precau tions;Rehabilitation Techniques and Procedures;Safety;Self Care Goals for Plan of Care: Patient /Caregiver Goals: Go Home Grooming with: Set Up Upper Body Bathing with: Stand By Assistance Upper Body Dressing with: Stand By Assistance Lower Body Bathing with: Modified Independent Lower Body Dressing with: Modified Independent Toilet Hygiene with: Supervision Chair Transfer with: Supervision Toilet Transfer with: Supervision Shower Transfer with: Supervision Car Transfer with: Supervision Demonstrate Competence With Education with: Supervision (sternal precations) Rehab Potential: Good Patient will be discontinued from Occupational Therapy when no further skilled needs are identified in this setting. PLAN: OT Frequency: 2 times per week Plan of Care developed with: Patient TREATMENT INTERVENTIONS: Therapy Diagnosis: Reduced mobility-other;Decreased activities of daily living (ADL);Muscle Weakness (generalized);Unsteadiness on feet;General symptoms and signs-other Interventions Provided: Evaluation;Self Long Term Management (22200) $ Evaluation-Moderate (71579) Billed Units: 1 unit Self Long Term Management (9753 (more content not included)... Normal [facility] THERAPY NT HNO ID: [id number] Author: Debbie Gates, PT Service: Physical Therapy Author Type: Physical Therapist Type: Therapy (PT/OT/Speech/Resp) Filed: 09/22/2021 1:58 PM Note Text: Physical Therapy Evaluation SERVICE DATE: 09/22/2021 SERVICE TIME: 1312 to 1327 ROOM: [id number] Recommended Discharge Disposition: Home PT Recommended Discharge Disposition Comments: Patient below baseline functioning, would benefit from Home PT at discharge with assist from neighbors and family for completion of IADLs Anticipated Discharge Needs: Physical Assist at Home Physical Assist at Home for: Cleaning;Laundry;Meals;Debbie pping;Transportation Recommended Discharge Equipment: Wheeled Walker (pending progress with functional mobility) PT 6 Clicks Score: 18 Precautions/Activity Restrictions: Fall Risk;Lines/Tubes/Drains;St ernal Current Hospital Course: 66 y.o male s/p CABG x3 09/21, taken back to OR for continued bleeding, L hemothorax Reason for Hospital Admission: CABG Relevant Past Medical History: CVA, CAD Response to Therapy Interventions: Good participation in activities, Requires additional time to complete activities, Pain Continue skilled needs due to: Functional mobility/skill impairments, Safety concerns, Continued monitoring of vital signs during mobility required Physical Therapy Problem List: Pain;Decreased Activity Tolerance;Decreased Strength;Functional Mobility Impairment;Balance Impaired Treatment Interventions: Energy Conservation Training;Strengthening;Fun ctional Mobility Training;Balance Training;Self Care / Home Management;Education Plan for next visit: Bed mobility, Gait training, Sit to Stand Transfers, Standing Tolerance Home Environment Patient Lives With: Self/Alone 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 [facility], spouse is home health aide, reports kids and siblings will stop by during day to assist Patient Report: Patient pleasant and agreeable to PT session CURRENT FUNCTIONAL STATUS: Most recent performance Current Functional Mobility Assist Level Additional Information Rolling Supine to Sit Minimal Assistance;Additional Information cues to brace pillow over chest to avoid use of UE, slide BLE towards edge of bed, HOB elevated with assist at trunk to achieve sitting Sit to Supine Scooting Contact Guard Assistance Sit to Stand Minimal Assistance;Additional Information cues to brace pillow, rock forward and power through legs to stand Stand to Sit Minimal Assistance;Additional Information cues to hug pillow, bow forward and slowly lower bottom, assist to control descent of trunk Bed to Chair Minimal Assistance Bed To Chair Transfer Type: Stepping Bed To Chair Transfer Equipment: Gait Belt Toilet/Commode Gait Minimal Assistance;Additional Information Gait Device: Hand Held Assist Gait Distance (feet): 5' cues for upright posture with pursed lips breathing and forward gaze, patient with short shuffled steps, min assist for balance. patient with noted increase in tremors while sitting edge of bed, therefore limiting ambulation distance Stairs Curb Step Car Transfer Blank pineda indicate activity not attempted General Deviations/Observations: Kayli decreased;Step length decreased Range of Motion: WFL Strength: Strength Limitation Comments Strength Limitation Comments: BLE grossly 4-/5 Balance: Static Sitting;Dynamic Sitting;Static Standing;Dynamic Standing Static Sitting Balance: Good Patient able to maintain balance without handhold support, limited postural sway Dynamic Sitting Balance: Fair Patient accepts minimal challenge, able to maintain balance while turning head/trunk Static Standing Balance: Fair Patient able to maintain balance with handhold support, may require occasional minimal assistance Dynamic Standing Balance: Fair Patient accepts minimal challenge, able to maintain balance while turning head/trunk Activity Tolerance: Standing Activity Standing Activity: stepping to chair Standing Activity Tolerance (in minutes): 1 JH-HLM: 4: Move to chair / commode Learning/Educational Needs: Functional Activities/Mobility;Precau tions;Rehabilitation Techniques and Procedures;Safety Goals for Plan of Care: Patient /Caregiver Goals: Go Home Goals: Patient will demonstrate progress with functional mobility to allow safe discharge to home with available support and/or physical assistance. Able to perform HEP with: Verbal Cues Only Rolling with: Verbal Cues Only Transfer supine to/from sit with: Verbal Cues Only Transfer sit to/ (more content not included)... Normal [facility] XR CHEST 1V FRONTALon 2021 XR CHEST 1V FRONTAL * * *Final Report* * * DATE OF EXAM: Sep 22 2021 4:50AM AKX [id number] - XR CHEST 1V FRONTAL / PROCEDURE REASON: Post-operative / post-procedure assessment, asymptomatic * * * * Physician Interpretation * * * * EXAMINATION: CHEST RADIOGRAPH (SINGLE VIEW AP OR PA) CLINICAL HISTORY: Post-operative / post-procedure assessment, asymptomatic MQ: XC1_5 Comparison: 09/22/2021 at 12:30 RESULT: Lines, tubes, and devices: Tip of endotracheal tube is just above the level of the aortic arch. Right internal jugular central line with tip in the region of the distal superior vena cava. Bilateral chest tubes paralleling the hemidiaphragms. Mediastinal drain to the left midline. Overlying environmental monitoring technician leads. Intact median sternotomy wires. Lungs and pleura: Small right apical pneumothorax. Minimal atelectasis at left lung base. Lungs are otherwise fairly clear. Cardiomediastinal silhouette: Normal cardiomediastinal silhouette. Other: Air is seen within the soft tissues in the neck. Stable. IMPRESSION: Small right apical pneumothorax otherwise stable findings. Manager Validation: ISAÍAS Transcribe Date/Time: Sep 22 2021 7:27A Dictated by : DAPHNE WILLS MD This examination was interpreted and the report reviewed and electronically signed by: DAPHNE WILLS MD on Sep 22 2021 7:32AM EST [id number] Normal [facility] XR CHEST 1V FRONTAL * * *Final Report* * * DATE OF EXAM: Sep 22 2021 12:38AM AKX [id number] - XR CHEST 1V FRONTAL / PROCEDURE REASON: Evaluate tube, line or lead position * * * * Physician Interpretation * * * * EXAMINATION: XR CHEST 1V FRONTAL CLINICAL HISTORY: Evaluate tube, line or lead position Comparison: Chest x-ray 09/21/2021 at 7:32 PM RESULT: Lines, tubes, and devices: * Endotracheal tube tip distance from the stephane is approximately 7.7 cm. * Stable positioning right internal jugular vein central line. * Mediastinal and bilateral pleural drains. Lungs and pleura: Interval resolution of right pneumothorax. Trace residual left pneumothorax, decreased from prior exam. Interval evacuation of left apical fluid/hemothorax. Mild left lower lobe atelectasis. Cardiomediastinal silhouette: Surgical changes of coronary artery bypass. Stable cardiac size. Pneumomediastinum. New surgical clips upper mediastinum. Bones/Soft tissues: There is air underneath the diaphragm. IMPRESSION: 1. Interval evacuation of left hemothorax. 2. Trace residual left pneumothorax, decreased from prior exam. 3. Resolution of right pneumothorax. 4. New air underneath the hemidiaphragm, may be tracking from pneumomediastinum. Continued follow-up is recommended. Manager Validation: ISAÍAS Transcribe Date/Time: Sep 22 2021 1:00A Dictated by : RACHELLE JOSE MD This examination was interpreted and the report reviewed and electronically signed by: RACHELLE JOSE MD on Sep 22 2021 1:08AM EST [id number] Normal [facility] 09-21-2021 [facility] HNO ID: [id number] Author: Cecelia Solis RT(R) Service: Radiology Author Type: Technologist Type: [facility] Filed: 09/21/2021 8:07 PM Note Text: Radiology Service Progress Note PATIENT NAME: Radha Brennan DATE OF SERVICE: September 21, 2021 TIME: 8:07 PM PATIENT IDENTITY VERIFICATION COMPLETED USING TWO (2) IDENTIFIERS: Name and Date of confirmed by identification band. FALL SCREENING: Has the patient had 2 falls in the last year or 1 fall with injury or currently using an Ambulatory Assistive Device (Walker, Cane, Wheelchair, Crutches, etc.)? Inpatient: Screened on floor PATIENT GENDER DATA: Male PATIENT RELEVANT IMPLANT DATA REVIEWED: Not Applicable RADIOLOGY DEPARTMENT: General X-ray: Exam(s) Completed: Chest X-Ray PERIPHERAL IV DATA: Not applicable SIGNED BY: RT Babar(R) September 21, 2021 8:07 PM [facility] HNO ID: [id number] Author: RT Janice(R) Service: Radiology Author Type: Technologist Type: [facility] Filed: 09/21/2021 2:04 PM Note Text: Radiology Service Progress Note PATIENT NAME: Radha Brennan DATE OF SERVICE: September 21, 2021 TIME: 2:04 PM PATIENT IDENTITY VERIFICATION COMPLETED USING TWO (2) IDENTIFIERS: Name and Date of confirmed by identification band. FALL SCREENING: Has the patient had 2 falls in the last year or 1 fall with injury or currently using an Ambulatory Assistive Device (Walker, Cane, Wheelchair, Crutches, etc.)? Inpatient: Screened on floor PATIENT GENDER DATA: Male PATIENT RELEVANT IMPLANT DATA REVIEWED: Not Applicable RADIOLOGY DEPARTMENT: General X-ray: Exam(s) Completed: Chest X-Ray PERIPHERAL IV DATA: Not applicable SIGNED BY: RT Janice(R) September 21, 2021 2:04 PM [facility] ANES PRE-OPon 09-21-2021 ANES PRE-OP HNO ID: [id number] Author: Lukas Marie MD Service: ? Author Type: Physician Type: Anesthesia Preprocedure Evaluation Filed: 09/21/2021 6:56 AM Note Text: ANESTHESIOLOGY DAY OF SURGERY NOTE : 1955 Procedure Information Date/Time: 09/21/21729 Procedure: BYPASS GRAFT ARTERY CORONARY ON-PUMP THREE CORONARY ARTERIAL GRAFTS (N/A Chest) Location: [facility] OR 05 / [facility] Surgeons: Gregorio Dominguez MD Estimated body mass index is 20.98 kg/m? as calculated from the following: Height as of 09/15/21: 174 cm (5' 8.5). Weight as of this encounter: 63.5 kg (139 lb 15.9 oz). Most recent hematocrit and potassium results: Hematocrit 45.7 09/11/2021 Potassium 4.2 09/11/2021 CAD s/p PCI 2018, left main dx on cath, carotid duplex reviewed, tobacco use, prior CVA CONCLUSIONS: - Technically difficult exam due to body habitus. - Exam indication: Chest Pain - The left ventricle is normal in size. Left ventricular systolic function is normal. EF = 52 ? 5% (2D biplane) Grade I left ventricular diastolic dysfunction. - The right ventricle is normal in size. Right ventricular systolic function is normal. - The patient has not had a prior CC echocardiographic exam for comparison. Relevant Problems CARDIO (+) 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 ([facility]) NEURO-PSYCH (+) Cerebrovascular accident (CVA) ([facility]) (+) Seizures ([facility]) I - PHYSICAL EVALUATION AIRWAY Patient intubated: No. Tracheostomy tube not present Mallampati: II. TM distance: >3 FB. Neck ROM: full ROM without neurological symptoms. Mouth opening: adequate. Short neck: no. Thick neck: no DENTAL Normal dental observations. Additional exam findings: no II - ANESTHESIA PLAN ASA Score: 4 Anesthetic Plan: general Airway type: ETT NPO Status: adequate Monitoring plan: standard ASA and invasive hemodynamic monitoring. Monitoring method: arterial Line and CVL Postoperative analgesic plan: parenteral or oral opioids. Patient / Surrogate agrees to blood products: Yes Significant changes in the patient condition since the History and Physical, not otherwise documented in primary service progress note: no. Potential Anesthesia issues that may suggest increased risk of complications or contraindication to planned procedure: none. Vitals Value Taken Time BP 125/81 09/21/21 0649 Pulse 60 09/21/21 0649 Resp 20 09/21/21648 Temp 36.3 ?C (97.3 ?F) 09/21/21648 SpO2 98 % 09/21/21648 Facility-Administered Medications as of 09/21/2021 Medication Dose Route Frequency - cold induction cardioplegia solution 500 mL MISCELLANEOUS ONE TIME - maintenance cardioplegia solution 1,000 mL MISCELLANEOUS ONE TIME - heparin 3,000 Units in NaCl 0.9% 500 mL irrigation 3,000 Units IRRIGATION ONE TIME - PHENYLephrine 20 mg in NaCl 0.9% 250 mL (ZA-SYNEPHRINE) 25-300 mcg/min INTRAVENOUS ONE TIME - aminocaproic acid 25 g in NaCl 0.9% 250 mL iv infusion (AMicAR) 1 g/hr INTRAVENOUS ONE TIME - dexmedeTOMIDine 400 mcg in NaCl 0.9% 100 mL (PRECEDEX) 0.2-0.7 mcg/kg/hr INTRAVENOUS ONE TIME - EPINEPHrine 4 mg in NaCl 0.9% 250 mL 0.6-10 mcg/min INTRAVENOUS ONE TIME - insulin regular 100 units in NaCl 0.9% 100 mL - AK CARD SURG NOMOGRAM 0-12 Units/hr INTRAVENOUS CONTINUOUS - nitroglycerin 100 mg in D5W 250 mL 5-20 mcg/min INTRAVENOUS CONTINUOUS - PHENYLephrine iv infusion 10 mg in NaCl 0.9% 250 mL (ZA-SYNEPHRINE) 0-100 mcg/min INTRAVENOUS ONE TIME - NORepinephrine iv infusion 16 mg in D5W 250 mL (LEVOPHED) 0.6-10 mcg/min INTRAVENOUS CONTINUOUS - gentamicin 80 mg in NaCl 0.9% irrigation bottle 1,000 mL IRRIGATION ONCE Outpatient Medications as of 09/21/2021 Medication Sig - acetaminophen (TYLENOL ORAL) Take 1,000 mg by mouth. Once the morning of surgery 09-21-21 - isosorbide mononitrate ER (IMDUR) 30 mg 24 hr tablet Take 30 mg by mouth once daily. - lamoTRIgine (LAMICTAL) 25 mg tablet Take 50 mg by mouth once daily. - aspirin, enteric coated (ASPIRIN, ENTERIC COATED) 81 mg EC tablet Take 81 mg by mouth once daily. - primidone (MYSOLINE) 50 mg tablet Take 50 mg by mouth twice daily. - atorvastatin (LIPITOR) 40 mg tablet Take 40 mg by mouth once daily. - metoprolol succinate ER (TOPROL XL) 25 mg 24 hr tablet Take 25 mg by mouth once daily. - nitroglycerin sublingual (NITROQUICK) 0.4 mg SL tablet Dissolve 1 tablet under the tongue every 5 minutes as needed for Chest Pain. May of three doses. - clopidogrel (PLAVIX) 75 mg tablet Take 75 mg by mouth once daily. I have interviewed and examined the patient. I have reviewed the medical record and/or the pre-anesthesia evaluation, pertinent labs, and test results. This contains updated information obtained within 48 hours of Surgery/Procedure. SIGNATURE: Lukas Marie MD PATIENT NAME: Radha Brennan DATE: September 21, 2021 TIME: 6:51 AM CSN: [id number] Normal [facility] ARTERIAL BLOOD GASESon 09-21 BASE DEFICIT, ARTERIAL -5 mmol/L Low -2-0 [facility] Comment on above: Order Comment: Speci men Type: ARTERIAL BLOOD SPECIMENOrdering Facility: [facility] Address: [address] [place] [address] Performed By: #### A LLBG ####[facility] LAB[facility]ATORYCLIA [id number] [address] [place] Body temperature 96.26 [degF] Normal [facility] Comment on above: Order Comment: Speci men Type: ARTERIAL BLOOD SPECIMENOrdering Facility: [facility] Address: [address] [place] [address] Performed By: #### A LLBG ####[facility]ORATORYCLIA [id number] [address] [place] CALCIUM IONIZED, PH CORRECTED 1.13 mmol/L Normal 1.08-1.30 [facility] Comment on above: Order Comment: Speci men Type: ARTERIAL BLOOD SPECIMENOrdering Facility: [facility] Address: [address] [place] [address] Performed By: #### A LLBG ####[facility] LABORATORYCLIA [id number] [place] [address] [place] Calcium.ionized (BldV) [Mass/Vol] 1.25 mmol/L Normal 1.08-1.30 [facility] Comment on above: Order Comment: Speci men Type: ARTERIAL BLOOD SPECIMENOrdering Facility: [facility] Address: [address] [place] [address] Performed By: #### A LLBG ####[facility]ATORYCLIA [id number] [address] Carboxyhemoglobin (BldA) [Mass fraction] 2.0 % Normal 0.0-2.0 [facility] Comment on above: Order Comment: Speci men Type: ARTERIAL BLOOD SPECIMENOrdering Facility: [facility] Address: [address] [place] [address] Result Comment: Carb oxyhemoglobin Reference Range for Smokers: 2.0-8.0% Performed By: #### A LLBG ####[facility]ATORYCLIA [id number] [address] [place] CO2 (Bld) [Partial pressure] 60 mm Hg High [address] [place] [address] Comment on above: Order Comment: Speci men Type: ARTERIAL BLOOD SPECIMENOrdering Facility: [facility] Address: [address] [place] [address] Performed By: #### A LLBG ####[facility]ATORYCLIA [id number] [address] [place] CO2 [Moles/Vol] 22 mmol/L Normal 22-28 [facility] Comment on above: Order Comment: Speci men Type: ARTERIAL BLOOD SPECIMENOrdering Facility: [facility] Address: [address] [place] [address] Performed By: #### A LLBG ####[facility]ORATORYCLIA [id number] [address] [place] CO2 adjusted to patient's actual temperature (Bld) [Partial pressure] 56 mmHg High [address] [place] [address] Comment on above: Order Comment: Speci men Type: ARTERIAL BLOOD SPECIMENOrdering Facility: [facility] Address: [address] [place] [address] Performed By: #### A LLBG ####[facility]ATORYCLIA [id number] [address] [place] Glucose [Mass/Vol] 142 mg/dL High 60-105 [facility] Comment on above: Order Comment: Speci men Type: ARTERIAL BLOOD SPECIMENOrdering Facility: [facility] Address: [address] [place] [address] Performed By: #### A LLBG ####[facility]ORYCLIA [id number] [address] [place] HCO3 (Bld) [Moles/Vol] 23 mmol/L Normal 22-26 [facility] Comment on above: Order Comment: Speci men Type: ARTERIAL BLOOD SPECIMENOrdering Facility: [facility] Address: [address] [place] [address] Performed By: #### A LLBG ####[facility] LABORATORYCLIA [id number] [address] [place] Hematocrit (Bld) [Volume fraction] 35.1 % Low 39.0-51.0 [facility] Comment on above: Order Comment: Speci men Type: ARTERIAL BLOOD SPECIMENOrdering Facility: [facility] Address: [address] [place] [address] Performed By: #### A LLBG ####[facility] LABORATORYCLIA [id number] [address] [place] Hemoglobin (Bld) [Mass/Vol] 11.4 g/dL Low 13.0-17.0 [facility] Comment on above: Order Comment: Speci men Type: ARTERIAL BLOOD SPECIMENOrdering Facility: [facility] Address: [address] [place] [address] Performed By: #### A LLBG ####[facility]ORATORYCLIA [id number] [address] [place] Methemoglobin (Bld) [Mass fraction] 1.1 % Normal 0.0-1.5 [facility] Comment on above: Order Comment: Speci men Type: ARTERIAL BLOOD SPECIMENOrdering Facility: [facility] Address: [address] [place] [address] Performed By: #### A LLBG ####[facility]ORYCLIA [id number] [address] O2 THERAPY Ventilator Normal [facility] Comment on above: Order Comment: Speci men Type: ARTERIAL BLOOD SPECIMENOrdering Facility: [facility] Address: [address] [address] Performed By: #### A LLBG ####[facility]ORYCLIA [id number] [address] Oxygen (Bld) [Partial pressure] 130 mm Hg High 85-95 [facility] Comment on above: Order Comment: Speci men Type: ARTERIAL BLOOD SPECIMENOrdering Facility: [facility] Address: [address] [place] [address] Performed By: #### A LLBG ####[facility]ATORYCLIA [id number] [address] Oxygen adjusted to patient's actual temperature (Bld) [Partial pressure] 122 mmHg High 85-95 [facility] Comment on above: Order Comment: Speci men Type: ARTERIAL BLOOD SPECIMENOrdering Facility: [facility] Address: [address] [place] [address] Performed By: #### A LLBG ####[facility] LABORATORYCLIA [id number] [address] [place] OXYGEN SATURATION, ARTERIAL 98 % Normal 95-98 [facility] Comment on above: Order Comment: Speci men Type: ARTERIAL BLOOD SPECIMENOrdering Facility: [facility] Address: [address] [address] Performed By: #### A LLBG ####[facility]ORYCLIA [id number] [address] Oxyhemoglobin (BldA) [Mass fraction] 95 % Normal 95-98 [facility] Comment on above: Order Comment: Speci men Type: ARTERIAL BLOOD SPECIMENOrdering Facility: [facility] Address: [address] [place] [address] Performed By: #### A LLBG ####[facility]ATORYCLIA [id number] [address] [place] pH (Bld) 7.22 [pH] Low 7.35-7.45 [facility] Comment on above: Order Comment: Speci men Type: ARTERIAL BLOOD SPECIMENOrdering Facility: [facility] Address: [address] [place] [address] Performed By: #### A LLBG ####[facility]ATORYCLIA [id number] [address] pH adjusted to patient's actual temperature (Bld) 7.23 Low 7.35-7.45 [facility] Comment on above: Order Comment: Speci men Type: ARTERIAL BLOOD SPECIMENOrdering Facility: [facility] Address: [address] [place] [address] Performed By: #### A LLBG ####[facility]ORATORYCLIA [id number] [address] STATES [facility] Potassium [Moles/Vol] 4.0 mmol/L Normal 3.5-5.0 [facility] Comment on above: Order Comment: Speci men Type: ARTERIAL BLOOD SPECIMENOrdering Facility: [facility] Address: [address] [place] [address] Performed By: #### A LLBG ####[facility]ATORYCLIA [id number] [address] STATES [facility] Sodium [Moles/Vol] 134 mmol/L Low 136-144 [facility] Comment on above: Order Comment: Speci men Type: ARTERIAL BLOOD SPECIMENOrdering Facility: [facility] Address: [address] [place] [address] Performed By: #### A LLBG ####[facility]ORATORYCLIA [id number] [place] [address] [place] Basic metabolic 2000 panelon 09-21-2021 Anion gap [Moles/Vol] 9 mmol/L Normal 9-18 [facility] Comment on above: Order Comment: Speci men Type: BLOOD SPECIMENOrdering Facility: [facility] Address: [address] [address] Performed By: #### 2 432-2, ####[facility]ORYCLIA [id number] [place] [address] [place] Calcium [Mass/Vol] 8.1 mg/dL Low 8.5-10.2 [facility] Comment on above: Order Comment: Speci men Type: BLOOD SPECIMENOrdering Facility: [facility] Address: [address] [place] [address] Performed By: #### 2 2, ####[facility] LABORATORYCLIA [id number] [place] [address] [place] Chloride [Moles/Vol] 105 mmol/L Normal 97-105 [facility] Comment on above: Order Comment: Speci men Type: BLOOD SPECIMENOrdering Facility: [facility] Address: [address] [place] [address] Performed By: #### 2 2, ####[facility]ATORYCLIA [id number] [place] [address] [place] CO2 [Moles/Vol] 23 mmol/L Normal 22-30 [facility] Comment on above: Order Comment: Speci men Type: BLOOD SPECIMENOrdering Facility: [facility] Address: [address] [address] Performed By: #### 2 2, ####[facility]ATORYCLIA [id number] [place] [address] [place] Creatinine [Mass/Vol] 1.04 mg/dL Normal 0.73-1.22 [facility] Comment on above: Order Comment: Speci men Type: BLOOD SPECIMENOrdering Facility: [facility] Address: [address] [address] Performed By: #### 2 4320-2, ####[facility]ORATORYCLIA [id number] [place] [address] [place] ESTIMATED GLOMERULAR FILTRATION RATE 79 mL/min/1.73m??? Normal >=60 [facility] Comment on above: Order Comment: Anam perez Type: BLOOD SPECIMENOrdering Facility: [facility] Address: [address] [place] [address] Result Comment: Teena mated Glomerular Filtration Rate (eGFR) is calculated using the 2020 CKD-EPI creatinine equation. This equation utilizes serum creatinine, sex, and age as parameters. The creatinine assay has traceable calibration to isotope dilution-mass spectrometry. Refer to KDIGO guidelines for clinical interpretation. In patients with unstable renal function, e.g. those with acute kidney injury, the eGFR may not accurately reflect actual GFR. Performed By: #### 2 4321-2, ####[facility]ITALIA [id number] [place] [address] [place] Glucose [Mass/Vol] 141 mg/dL High 74-99 [facility] Comment on above: Order Comment: Anam perez Type: BLOOD SPECIMENOrdering Facility: [facility] Address: [address] [place] [address] Result Comment: The [place] Diabetes Association (ADA) provides guidance for cutoff values for fasting glucose and random glucose. The ADA defines fasting as no caloric intake for at least 8 hours. Fasting plasma glucose results between 100 to 125 mg/dL indicate increased risk for diabetes (prediabetes). Fasting plasma glucose results greater than or equal to 126 mg/dL meet the criteria for diagnosis of diabetes. In the absence of unequivocal hyperglycemia, results should be confirmed by repeat testing. In a patient with classic symptoms of hyperglycemia or hyperglycemic crisis, random plasma glucose results greater than or equal to 200 mg/dL meet the criteria for diagnosis of diabetes. Reference: Standards of Medical Care in Diabetes 2016, [place] Diabetes Association. Diabetes Care. 2016.39(Suppl 1). Performed By: #### 2 4321-2, ####[facility]ORATORYCLIA [id number] [place] [id number] [place] Potassium [Moles/Vol] 4.3 mmol/L Normal 3.7-5.1 [facility] Comment on above: Order Comment: Speci men Type: BLOOD SPECIMENOrdering Facility: [facility] Address: [address] [place] [address] Performed By: #### 2 4321-2, ####[facility]ORATORYCLIA [id number] [address] Sodium [Moles/Vol] 137 mmol/L Normal 136-144 [facility] Comment on above: Order Comment: Speci men Type: BLOOD SPECIMENOrdering Facility: [facility] Address: [address] [place] [address] Performed By: #### 2 4321-2, ####[facility]ATORYCLIA [id number] [address] Urea nitrogen [Mass/Vol] 15 mg/dL Normal 9-24 [facility] Comment on above: Order Comment: Speci men Type: BLOOD SPECIMENOrdering Facility: [facility] Address: [address] [place] [address] Performed By: #### 2 432-2, ####[facility]ATORYCLIA [id number] [address] CBC panel Auto (Bld)on 09-21 Erythrocyte distribution width (RBC) [Ratio] 12.7 % Normal 11.5-15.0 [facility] Comment on above: Order Comment: Speci men Type: BLOOD SPECIMENOrdering Facility: [facility] Address: [address] [place] [address] Performed By: #### 5 8410-2 ####[facility]ATORYCLIA [id number] [address] Hematocrit (Bld) [Volume fraction] 28.4 % Low 39.0-51.0 [facility] Comment on above: Order Comment: Speci men Type: BLOOD SPECIMENOrdering Facility: [facility] Address: [address] [place] [address] Performed By: #### 5 8410-2 ####[facility]ATORYCLIA [id number] [address] Hemoglobin (Bld) [Mass/Vol] 9.7 g/dL Low 13.0-17.0 [facility] Comment on above: Order Comment: Speci men Type: BLOOD SPECIMENOrdering Facility: [facility] Address: [address] [place] [address] Performed By: #### 5 8410-2 ####[facility]ATORYCLIA [id number] [address] MCH (RBC) [Entitic mass] 33.0 pg Normal 26.0-34.0 [facility] Comment on above: Order Comment: Speci men Type: BLOOD SPECIMENOrdering Facility: [facility] Address: [address] [place] [address] Performed By: #### 5 8410-2 ####[facility]ATORYCLIA [id number] [address] MCHC (RBC) [Mass/Vol] 34.2 g/dL Normal 30.5-36.0 [facility] Comment on above: Order Comment: Speci men Type: BLOOD SPECIMENOrdering Facility: [facility] Address: [address] [place] [address] Performed By: #### 5 8410-2 ####[facility]ATORYCLIA [id number] [address] MCV (RBC) [Entitic vol] 96.6 fL Normal 80.0-100.0 [facility] Comment on above: Order Comment: Speci men Type: BLOOD SPECIMENOrdering Facility: [facility] Address: [address] [place] [address] Performed By: #### 5 8410-2 ####[facility]ATORYCLIA [id number] [address] Nucleated RBC (Bld) [#/Vol] 10*3/uL Normal <0.01 [facility] Comment on above: Order Comment: Speci men Type: BLOOD SPECIMENOrdering Facility: [facility] Address: [address] [place] [address] Performed By: #### 5 8410-2 ####[facility]ORATORYCLIA [id number] [address] [place] Platelet mean volume (Bld) [Entitic vol] 9.4 fL Normal 9.0-12.7 [facility] Comment on above: Order Comment: Speci men Type: BLOOD SPECIMENOrdering Facility: [facility] Address: [address] [place] [address] Performed By: #### 5 8410-2 ####[facility]ATORYCLIA [id number] [address] [place] Platelets (Bld) [#/Vol] 213 10*3/uL Normal 150-400 [facility] Comment on above: Order Comment: Speci men Type: BLOOD SPECIMENOrdering Facility: [facility] Address: [address] [place] [address] Performed By: #### 5 8410-2 ####[facility]ATORYCLIA [id number] [address] [place] RBC (Bld) [#/Vol] 2.94 10*6/uL Low 4.20-6.00 [facility] Comment on above: Order Comment: Speci men Type: BLOOD SPECIMENOrdering Facility: [facility] Address: [address] [place], [place] [address] Performed By: #### 5 8410-2 ####[facility]ATORYCLIA [id number] [address] [place] WBC (Bld) [#/Vol] 21.66 10*3/uL High 3.70-11.00 [facility] Comment on above: Order Comment: Speci men Type: BLOOD SPECIMENOrdering Facility: [facility] Address: [address] [place] [address] Performed By: #### 5 8410-2 ####[facility]ATORYCLIA [id number] [address] Erythrocyte distribution width (RBC) [Ratio] 12.6 % Normal 11.5-15.0 [facility] Comment on above: Order Comment: Speci men Type: BLOOD SPECIMENOrdering Facility: [facility] Address: [address] [place] [address] Performed By: #### 5 8410-2 ####[facility]ATORYCLIA [id number] [address] Hematocrit (Bld) [Volume fraction] 33.0 % Low 39.0-51.0 [facility] Comment on above: Order Comment: Speci men Type: BLOOD SPECIMENOrdering Facility: [facility] Address: [address] [place] [address] Performed By: #### 5 8410-2 ####[facility]ATORYCLIA [id number] [address] Hemoglobin (Bld) [Mass/Vol] 11.1 g/dL Low 13.0-17.0 [facility] Comment on above: Order Comment: Speci men Type: BLOOD SPECIMENOrdering Facility: [facility] Address: [address] [place] [address] Performed By: #### 5 8410-2 ####[facility]ATORYCLIA [id number] [address] MCH (RBC) [Entitic mass] 32.6 pg Normal 26.0-34.0 [facility] Comment on above: Order Comment: Speci men Type: BLOOD SPECIMENOrdering Facility: [facility] Address: [address] [place] [address] Performed By: #### 5 8410-2 ####[facility]ATORYCLIA [id number] [address] [place] MCHC (RBC) [Mass/Vol] 33.6 g/dL Normal 30.5-36.0 [facility] Comment on above: Order Comment: Speci men Type: BLOOD SPECIMENOrdering Facility: [facility] Address: [address] [address] Performed By: #### 5 8410-2 ####[facility]ATORYCLIA [id number] [address] STATES OF [facility] MCV (RBC) [Entitic vol] 97.1 fL Normal 80.0-100.0 [facility] Comment on above: Order Comment: Speci men Type: BLOOD SPECIMENOrdering Facility: [facility] Address: [address] [place] [address] Performed By: #### 5 8410-2 ####[facility]ORYCLIA [id number] [address] OF [facility] Nucleated RBC (Bld) [#/Vol] 10*3/uL Normal <0.01 [facility] Comment on above: Order Comment: Speci men Type: BLOOD SPECIMENOrdering Facility: [facility] Address: [address] [place] [address] Performed By: #### 5 8410-2 ####[facility]ATORYCLIA [id number] [address] Platelet mean volume (Bld) [Entitic vol] 9.2 fL Normal 9.0-12.7 [facility] Comment on above: Order Comment: Speci men Type: BLOOD SPECIMENOrdering Facility: [facility] Address: [address] [place] [address] Performed By: #### 5 8410-2 ####[facility]ORYCLIA [id number] [address] [place] Platelets (Bld) [#/Vol] 236 10*3/uL Normal 150-400 [facility] Comment on above: Order Comment: Speci men Type: BLOOD SPECIMENOrdering Facility: [facility] Address: [address] [place] [address] Performed By: #### 5 8410-2 ####[facility]ATORYCLIA [id number] [place] [address] [place] RBC (Bld) [#/Vol] 3.40 10*6/uL Low 4.20-6.00 [facility] Comment on above: Order Comment: Speci men Type: BLOOD SPECIMENOrdering Facility: [facility] Address: [address] [place] [address] Performed By: #### 5 8410-2 ####[facility]ATORYCLIA [id number] [address] OF [facility] WBC (Bld) [#/Vol] 28.06 10*3/uL High 3.70-11.00 [facility] Comment on above: Order Comment: Speci men Type: BLOOD SPECIMENOrdering Facility: [facility] Address: [address] [place] [address] Performed By: #### 5 8410-2 ####[facility]ATORYCLIA [id number] [address] CNPCarolyn 09-21-2021 CNPN Telephone (UROLWS) -- RADHA BRENNAN ([id number]) 1955 M Date Time Provider Department 09/21/21 MATT VILLEGAS During your visit today, we recorded the following information about you: Jess Cifuentes 09/21/2021 12:10 PM Signed ----- Message from Matt Villegas PA-C sent at 09/18/2021 9:45 AM EDT ----- No infection in the urine Matt Villegas [facility], [place], [place] Cifuentes 09/21/2021 12:11 PM Signed Left detailed message to inform. Jess Cifuentes Allergies As of Date: 09/21/2021 Noted Allergy Reaction TUBERCULIN, PURIFIED PROTEIN DERI*06/25/2021 7 - Swelling VENOM-HONEY BEE 06/25/2021 7 - Swelling Comments: Actually black and yellow bumble bees per pt Date Reviewed: 09/21/2021 Reviewed by: Huyen Maier RN - Fully Assessed Reason for Visit: Results [95] Prescriptions as of 09/21/2021 - acetaminophen (TYLENOL ORAL) Take 1,000 mg by mouth. Once the morning of surgery 09-21-21 - cyclobenzaprine (FLEXERIL) 5 mg tablet Take 5 mg by mouth once daily. - metoprolol tartrate, short acting, (LOPRESSOR) 25 mg tablet Take 0.5 tablets by mouth one time only for 1 dose. Take am of surgery with your morning meds. DO NOT take Toprol XL ( metoprolol succinate) as well at this time. - clopidogrel (PLAVIX) 75 mg tablet Take 75 mg by mouth once daily. - isosorbide mononitrate ER (IMDUR) 30 mg 24 hr tablet Take 30 mg by mouth once daily. - lamoTRIgine (LAMICTAL) 25 mg tablet Take 50 mg by mouth once daily. - aspirin, enteric coated (ASPIRIN, ENTERIC COATED) 81 mg EC tablet Take 81 mg by mouth once daily. - primidone (MYSOLINE) 50 mg tablet Take 50 mg by mouth twice daily. - atorvastatin (LIPITOR) 40 mg tablet Take 40 mg by mouth once daily. - metoprolol succinate ER (TOPROL XL) 25 mg 24 hr tablet Take 25 mg by mouth once daily. - nitroglycerin sublingual (NITROQUICK) 0.4 mg SL tablet Dissolve 1 tablet under the tongue every 5 minutes as needed for Chest Pain. May of three doses. Facility-Administered Medications as of 09/21/2021 - cold induction cardioplegia solution 500 mL - maintenance cardioplegia solution 1,000 mL - heparin 3,000 Units in NaCl 0.9% 500 mL irrigation - PHENYLephrine 20 mg in NaCl 0.9% 250 mL (ZA-SYNEPHRINE) - aminocaproic acid 25 g in NaCl 0.9% 250 mL iv infusion (AMicAR) - dexmedeTOMIDine 400 mcg in NaCl 0.9% 100 mL (PRECEDEX) - EPINEPHrine 4 mg in NaCl 0.9% 250 mL - insulin regular 100 units in NaCl 0.9% 100 mL - AK CARD SURG NOMOGRAM - nitroglycerin 100 mg in D5W 250 mL - PHENYLephrine iv infusion 10 mg in NaCl 0.9% 250 mL (ZA-SYNEPHRINE) - NORepinephrine iv infusion 16 mg in D5W 250 mL (LEVOPHED) - aspirin 81 mg chewable tab(s) - metoprolol tartrate (short acting) 12.5 mg tab(s) (LOPRESSOR) - PHENYLephrine 10 mg/mL injection (ZA-SYNEPHRINE) - heparin 1,000 unit/mL injection - vancomycin iv piggyback 1 g in D5W 200 mL (VANCOCIN) - propofol injection (DIPRIVAN) - midazolam injection (VERSED) - vecuronium injection - famotidine injection (PEPCID) - dexAMETHasone sodium phosphate injection (DECADRON) - aminocaproic acid bolus from bag (AMICAR) - NaCl 0.9% iv infusion - NaCl 0.9% iv infusion - magnesium sulfate injection - lactated ringers iv infusion - fentaNYL 50 mcg/mL injection (SUBLIMAZE) - aztreonam 2 g in D5W 100 mL (AZACTAM) - PHENYLephrine iv infusion 10 mg in NaCl 0.9% 250 mL (ZA-SYNEPHRINE) - aminocaproic acid 25 g in D5W 250 mL iv infusion (AMicAR) - insulin regular human 100 Units in NaCl 0.9% 100 mL - papaverine injection - prime solution for cardiopulmonary bypass - heparin 1,000 unit/mL injection - NaCl 0.9% irrigation solution - bupivacaine liposome (PF) 1.3 % (13.3 mg/mL) injection (EXPAREL) - lidocaine HCl (PF) 20 mg/mL (2 %) injection - mannitol 20 % iv bolus (OSMITROL) - protamine injection - calcium chloride injection - EPINEPHrine 4 mg in D5W 250 mL - PHENYLephrine soln injection (ZA-SYNEPHRINE) Problem List As Of Date 09/21/2021 Noted Resolved Tobacco abuse [Z72.0] 05/12/2020 Screening for colon cancer [Z12.11] 05/12/2020 Seizures (HCC) [R56.9] 05/12/2020 Cerebrovascular accident (CVA) (HCC) [I63.9] 05/12/2020 Diarrhea [R19.7] 05/12/2020 LV dysfunction [I51.9] Atrial septal aneurysm [I25.3] Mixed hyperlipidemia [E78.2] Coronary artery disease involving [place] joy* BPH with obstruction/lower urinary tract sympto*09/15/2021 Encounter Status:Closed by JESS CIFUENTES on 09/21/[address] [facility] CONSULTon 09-21-2021 CONSULT HNO ID: [id number] Author: Thai Peter MD Service: Critical Care Author Type: Physician Type: Consults Filed: 09/21/2021 3:09 PM Note Text: CRITICAL CARE CONSULT NOTE SERVICE DATE: 09/21/2021 SERVICE TIME: 2:01 PM REASON FOR CONSULT: S/P Surgery REQUESTING PHYSICIAN: Dr. Dominguez? ADMITTING PROVIDER: Gregorio Dominguez MD SERVICE DATE: 09/21/2021 SERVICE TIME: 2:01 PM Admission Date: 09/21/2021 AGE: [age] year old LOS: 0 days Subjective 66yo WM with known prior CADse having ZOLTAN to LAD and D2 in 2018 following an anterior wall IL and small airways disease by PFT of 07/16/21 with normal FEV-1 and FVC and DLco of 79%. [id number] was 58%. Has been recently having unstable angina symptoms and LHC on 06/15/21 showed severe 3V-CADse with EF of 52%. Underwent median sternotomy CABG x 3 today and now is in CVICU intubated on SIMV/PSV-12 Vt-450 P-5 FiO2 40% with Ve-6.6l/min and SaO2 100%. No secretions reported. Currently sedated and unresponsive to name and commands. Epinephrine at 3mcg/min Neosynephrine 15mcg/min Precedex at 0.4mcg/kg/hr Insulin 4 units/hr gtt IVF at 50ml/hr 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 (HCC) - 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 (HCC) - LV dysfunction mild - Mixed hyperlipidemia - Seizure (HCC) - Tobacco use disorder PAST SURGICAL HISTORY Procedure Laterality Date - LUMBAR PUNCTURE - OTHER 2018 ptca ZOLTAN to mid LAF and second diagonal - PAST SURGICAL HISTORY OF lymph node resection Social History Tobacco Use - Smoking status: Current Every Day Smoker Packs/day: 1.00 Years: 61.00 Pack years: 61.00 Types: Cigarettes - Smokeless tobacco: Never Used Vaping Use - Vaping Use: Never used Substance Use Topics - Alcohol use: Yes Comment: 1 drink per month - Drug use: Never VITAL SIGNS (last 24hrs min/max): Temp Av.3 ?C (97.3 ?F) Min: 36.3 ?C (97.3 ?F) Max: 36.3 ?C (97.3 ?F) Pulse Av.6 Min: 0 Max: 196 Arterial BP 1 Min: 6/-18 Max: 252/240 Cuff BP Min: 101/71 Max: 125/81 Pain Level: 0 Vital signs reviewed. BP 125/81 Pulse 60 Temp (Src) 97.3 (Temporal) Resp 20 Wt 139 lb 15.9 oz (63.5kg) SpO2 98% O2 Therapy: Room Air Temp (24hrs), Av.3 ?C (97.3 ?F), Min:36.3 ?C (97.3 ?F), Max:36.3 ?C (97.3 ?F) NET FLUID BALANCE Intake/Output Summary (Last 24 hours) at 09/21/2021 1401 Last data filed at 09/21/2021 1400 Gross per 24 hour Intake 3199 ml Output 440 ml Net 2759 ml MEDICATIONS Current Facility-Administered Medications Medication Dose Route Frequency - sodium chloride 0.9 % (flush) 10 mL (BD POSIFLUSH) 10 mL INTRAVENOUS q 12 H - sodium chloride 0.9 % (flush) 20 mL (BD POSIFLUSH) 20 mL INTRAVENOUS PRN - NaCl 0.9% iv flush bag 20 mL INTRAVENOUS PRN - lactated ringers iv infusion 50 mL/hr INTRAVENOUS CONTINUOUS - insulin regular 100 units in NaCl 0.9% 100 mL - AK CARD SURG NOMOGRAM 0-12 Units/hr INTRAVENOUS CONTINUOUS - insulin regular human 10 Units bolus from bag 10 Units INTRAVENOUS PRN - dextrose 10% iv bolus 12.5 g INTRAVENOUS PRN - albuterol 2.5 mg /3 mL (0.083 %) 2.5 mg (PROVENTIL) 2.5 mg INHALATION q 2 H PRN - ondansetron (PF) 4 mg injection (ZOFRAN) 4 mg INTRAVENOUS q 6 H PRN - potassium chloride iv piggyback 20 mEq/100 mL 20 mEq INTRAVENOUS PRN - magnesium sulfate 2 g in sterile water 50 ml 2 g INTRAVENOUS PRN(NO DISPENSE) - midazolam (PF) 2 mg injection (VERSED) 2 mg INTRAVENOUS q 6 H PRN - acetaminophen 1,000 mg tab(s) (TYLENOL) 1,000 mg ORAL QID - gabapentin 200 mg cap(s) (NEURONTIN) 200 mg ORAL BID - lidocaine 4 % 1 Patch (SALONPAS) 1 Patch TRANSDERMAL DAILY - magnesium oxide 400 mg tab(s) (MAG-OX) 400 mg ORAL DAILY - lactated ringers 250 mL iv bolus 250 mL INTRAVENOUS PRN - PHENYLephrine iv infusion 10 mg in NaCl 0.9% 250 mL (ZA-SYNEPHRINE) 0-100 mcg/min INTRAVENOUS CONTINUOUS - oxyCODONE IR 5-10 mg tab(s) (ROXICODONE) 5-10 mg ORAL q 3 H PRN - fentaNYL 50 mcg/mL 25-50 mcg injection (SUBLIMAZE) 25-50 mcg INTRAVENOUS q 1 H PRN - dexmedeTOMIDine 400 mcg in NaCl 0.9% 100 mL (PRECEDEX) 0.2-0.7 mcg/kg/hr INTRAVENOUS CONTINUOUS - nicotine 21 mg/24 hr 1 Patch (NICODERM) 1 Patch TRANSDERMAL DAILY - nicotine -- REMOVE patch OTHER DAILY - nicotine - verify patch OTHER q 8 H Lines, Drains, and Airways Line Arterial Line/Sheath 0 (more content not included)... Normal [facility] Fibrinogen PPP-mCncon 2021 Fibrinogen Coag (PPP) [Mass/Vol] 179 mg/dL Low 200-400 [facility] Comment on above: Order Comment: Speci men Type: BLOOD SPECIMENOrdering Facility: [facility] Address: [address] [place] [phone] Performed By: #### 3 255-7, 76783-0 ####[facility] LABORATORYCLIA [id number] [place] [address] [place] Magnesium SerPl-mCncon 09-21 Magnesium [Mass/Vol] 2.4 mg/dL High 1.7-2.3 [facility] Comment on above: Order Comment: Speci men Type: BLOOD SPECIMENOrdering Facility: [facility] Address: [address] [place] [address] Performed By: #### 2 4321-2, 02714-5 ####[facility] LABORATORYCLIA [id number] [place] [address] [place] OPERATIVE NOon 09-21-2021 OPERATIVE NO HNO ID: [id number] Author: Gregorio Dominguez MD Service: Cardiac Surgery Author Type: Physician Type: Operative Report Filed: 09/21/2021 1:39 PM Note Text: [facility] CARDIO-THORACICSURGERY OPERATIVE/PROCEDURE REPORT LOG ID: [id number] SURGERY/PROCEDURE DATE: 09/21/2021 INCISION/PROCEDURE START TIME: 8:54 AM INCISION CLOSE/PROCEDURE END TIME: 1:32 PM SURGEON(S)/PROCEDURALIST(S ) AND SWAGE TENDER(S): Surgeon(s) and Role: * Gregorio Dominguez MD - Primary Physician Vegetables Cook: Tami Luna PA-C Belt Press Operator: Prosper Moon SA ANESTHESIA: General CTS OP REPORTS PROCEDURE(S): Coronary Artery Bypass Graft PREOPERATIVE DIAGNOSIS: Complex Vessel Coronary Artery Disease POSTOPERATIVE DIAGNOSIS: Same as preop FINDINGS: Normal LV pre and post excellent graft flows DESCRIPTION OF PROCEDURE: Operative Approach: Full Conventional Sternotomy Reoperation: No previous surgeries PUMP: ON PUMP Arterial Cannulation: Aortic Venous Cannulation: Right Atrial CARDIOPLEGIA: Buckberg Cardioplegia Delivery: Antegrade CABG (Coronary Artery Bypass Graft) PROCEDURE: CONDUIT QUALITY: Normal caliber with excellent flow AORTA QUALITY: Normal CORONARY ARTERY QUALITY: Normal Proximal Technique: Single cross clamp GRAFTS: ? RIBEIRO in situ mammary end to side mid LAD ? Vein graft ascending aorta end to side diagonal 2 ? ELIEL ascending aorta end to side diagonal 1 Left ABBEY: Skeletonized Raymond Technique: Direct vision (open) Right ABBEY: Skeletonized Raymond Technique: Direct vision (open) Vein(s) Harvested: Left leg greater saphenous Raymond Technique: Endoscopic POST-BYPASS: Aortic Occlusion: Aortic cross clamp PACING WIRES: None CHEST TUBES/DRAINS: Left chest tube, Right chest tube and Mediastinal chest tube CLOSURE: Routine with sternal wires POST-PROCEDURE DETAILS: Sponge/Instrument/Needle Counts: Final Counts Correct Estimated Blood Loss: 250 mL of shed blood was preserved by cardiopulmonary bypass pump and the cell saver. Specimens: None SURGEON/SWAGE TENDER PARTICIPATION: The primary Surgeon/Proceduralist performed the procedure with assistance. No qualified Resident/Fellow was available. Program Development Specialist: opened and closed Second Assist: opened, closed and harvested graft Grafts Harvested: left greater saphenous OTHER FINDINGS/DETAILS: Prosper Moon SA, registered nurse first assistant: Tasks: assisted with opening, closing, retracting, suturing DEYSI Gay, second assist, Tasks: assisted with opening, closing, retracting, suturing harvested saphenous vein COMPLETED BY: Gregorio Dominguez MD PATIENT NAME: Radha Brennan DATE: September 21, 2021 TIME: 1:35 PM AGE: [age] year old Normal [facility] OPERATIVE NO HNO ID: [id number] Author: Gregoroi Dominguez MD Service: Cardiac Surgery Author Type: Physician Type: Operative Report Filed: 09/22/2021 1:25 PM Note Text: [facility] - Operative Report RADHA BRENNAN : 1955 AGE: 66. SEX: M PATIENT TYPE: I HOSP SVC: ICU LOCATION: [facility] ATTENDING PHYSICIAN: GREGORIO DOMINGUEZ CSN NUMBER: [id number] DATE OF SURGERY/PROCEDURE: 09/21/2021 INCISION/PROCEDURE START TIME: 10:10 PM INCISION CLOSE/PROCEDURE END TIME: 11:30 PM PREOPERATIVE DIAGNOSIS: Status post coronary artery bypass graft x3, 09/21/2021; postop mediastinal hemorrhage. POSTOPERATIVE DIAGNOSIS: Status post coronary artery bypass graft x3, 09/21/2021; postop mediastinal hemorrhage. SURGEON: Gregorio Dominguez MD SWAGE TENDER: DEYSI Turner. She was 1st radiology practitioner assistant. She assisted opening, closing, retracting, and suturing. No qualified resident was available. SURGERY/PROCEDURE: Exploration of mediastinum; evacuation of left hemothorax; control of arterial bleeding from left ABBEY bed. ANESTHESIA: General COMPLICATIONS: There were no complications. BLOOD LOSS: Minimal. FINDINGS: Included left hemothorax and bleeding from a small arterial in the left ABBEY bed. No specimen. INDICATIONS: This 66-year-old man underwent coronary artery bypass grafting on 09/21/2021. He had uneventful immediate postoperative course. Prior to extubation, he became somewhat combative and after extubation, was noted to have marked increase in chest tube output, this was approximately 6 hours after return from surgery and prior to that, his output had been very minimal. He was noted to have a mildly decreased fibrinogen level and cryoprecipitate was given but he had ongoing bleeding at a onci-lp-maihbyoh level, which led us to indication for return to the OR for exploration. DESCRIPTION OF PROCEDURE: Intended benefits, potential complications, and staff indications were discussed at length. A preoperative Huddle was performed. He was brought to the operating room and placed on the operating table in supine position. He already had in place central access, arterial access, Bean catheter itself from his previous coronary artery bypass grafting from that morning. He was given general anesthesia, intubated. A GINA probe was placed and he was prepped and draped sterilely. GINA confirmed normal LV function, no pericardial effusion. A time-out was performed. The sternum was reopened with all wires being removed. We then carefully examined the sternal table, the ABBEY beds, mediastinal contents, all surgical sites, etc. There was a small arterial bleeder in the left ABBEY bed, which was pumping actively and associated with this was left hemothorax of the left lung apex. The bleeding was controlled with Bovie electrocautery and the hemothorax was evacuated. Examination of the sternum, both ABBEY beds, all cannulation sites and an intrapericardial contents revealed no other site of bleeding. At this point, the mediastinal chest tube was replaced and then the sternum was closed with wire cerclage. The pectoralis fascia, subcutaneous tissue, and skin were closed in layers with absorbable suture. Dry sterile dressings applied. Sponge counts and needle counts were correct. A sign-out was then performed. He was returned to CVICU in good condition. There were no complications. No specimens. Gregorio Dominguez MD JAL:[id number] /[id number] Normal [facility] OPERATIVE NO HNO ID: [id number] Author: Gregorio Dominguez MD Service: Cardiac Surgery Author Type: Physician Type: Operative Report Filed: 09/22/2021 1:25 PM Note Text: [facility] - Operative Report RADHA BRENNAN : 1955 AGE: 66. SEX: M PATIENT TYPE: I HOSP SVC: ICU LOCATION: [facility] ATTENDING PHYSICIAN: GREGORIO DOMINGUEZ CSN NUMBER: [id number] DATE OF SURGERY/PROCEDURE: 09/21/2021 INCISION/PROCEDURE START TIME: 10:10 PM INCISION CLOSE/PROCEDURE END TIME: 11:30 PM PREOPERATIVE DIAGNOSIS: Status post coronary artery bypass graft x3, 09/21/2021; postop mediastinal hemorrhage. POSTOPERATIVE DIAGNOSIS: Status post coronary artery bypass graft x3, 09/21/2021; postop mediastinal hemorrhage. SURGEON: Gregorio Dominguez MD SWAGE TENDER: DEYSI Turner, which was 1st radiology practitioner assistant. She performed assisted with opening, closing, retracting, and suturing, no qualified DICTATION ENDS HERE. SURGERY/PROCEDURE: Exploration of mediastinum; evacuation of left hemothorax; control of arterial bleeding from left ABBEY harvest bed. ANESTHESIA: General Gregorio Dominguez MD JAL:[id number] /[id number] [facility] ORECHOPREon 09-21-2021 ORECHOPRE Echocardiography Rep ort: Intraoperative Echo Pre (GINA) [facility] Date of service: 09/21/2021 9:57:41 PM HOSPITAL Ordering physician: PROSPER ESCALANTE Indication: intraoperative Technologist: staff Interpreting physician: Khadar Mishra MD PATIENT: Name: MR. RADHA BRENNAN : 1955 Age: 66 years Gender: M Height: 172.70 cm BSA: 1.76 m? Weight: 64.70 kg BMI: 21.7 kg/m? An intraoperative echo exam was performed for monitoring purposes. (PRE PROCEDURE) MEASUREMENTS: (PRE PROCEDURE) FINDINGS: (PRE PROCEDURE) CONCLUSIONS: (PRE PROCEDURE) - Exam indication: intraoperative - An intraoperative echo exam was performed for monitoring purposes. prior exam not compared Final 1..[id number] See Link below for Image Normal [facility] ORECHOPRE Echocardiography Rep ort: Intraoperative Echo Pre (GINA) [facility] Date of service: 09/21/2021 7:39:30 AM HOSPITAL Ordering physician: GREGORIO DOMINGUEZ Indication: intraoperative Technologist: staff Interpreting physician: Khadar Mishra MD PATIENT: Name: MR. RADHA BRENNAN : 1955 Age: 66 years Gender: M Height: 174.00 cm BSA: 1.75 m? Weight: 63.50 kg BMI: 21.0 kg/m? An intraoperative echo exam was performed for monitoring purposes. (PRE PROCEDURE) MEASUREMENTS: (PRE PROCEDURE) FINDINGS: (PRE PROCEDURE) CONCLUSIONS: (PRE PROCEDURE) - Exam indication: intraoperative - An intraoperative echo exam was performed for monitoring purposes. prior exam not compared Final ..[id number] See Link below for Image Normal [facility] PT panel Coag (PPP)on 2021 INR Coag (PPP) [Relative time] 1.1 {INR} Normal 0.9-1.3 [facility] Comment on above: Order Comment: Speci men Type: BLOOD SPECIMENOrdering Facility: [facility] Address: [address] [place] [id number] Result Comment: Maggie min K Antagonist (VKA) Therapeutic Range: INR 2 to 3 (Target INR of 2.5) Note: For patients treated with VKA drugs, such as warfarin, the [place] [employer] 2012 Guideline recommends a therapeutic INR range of 2 to 3 (target INR of 2.5). This recommendation includes high-risk patients with antiphospholipid syndrome with previous arterial or venous thromboembolism, current-generation mechanical or bioprosthetic aortic heart valve replacement. Note: Patients with mechanical aortic valve replacement and additional risk factors for thromboembolic events (atrial fibrillation, previous thromboembolism, LV dysfunction, hypercoagulable conditions) or an older generation mechanical AVR (i.e., ball in-Cage) or any mechanical MVR should have a INR therapeutic range of 2.5 to 3.5 (target INR of 3). Shiloh GH, et al. Chest 2012, 141:7S-47S Jose Angel RA, et al. JAC 2017, 70: 252-289 Performed By: #### 1 4979-9, 69692-7 ####[facility] LABORATORYCLIA [id number] [place] [address] [place] PT Coag (PPP) [Time] 11.7 s Normal 9.7-13.0 [facility] Comment on above: Order Comment: Speci men Type: BLOOD SPECIMENOrdering Facility: [facility] Address: [address] [place] [address] Performed By: #### 1 4979-9, 93441-4 ####[facility]ORATORYCLIA [id number] [address] [place] XR CHEST 1V FRONTALon 2021 XR CHEST 1V FRONTAL * * *Final Report* * * * * * SEE BOTTOM OF REPORT FOR ADDENDED TEXT * * * DATE OF EXAM: Sep 21 2021 7:40PM [id number] - XR CHEST 1V FRONTAL / PROCEDURE REASON: Post-operative / post-procedure assessment, symptomatic * * * * Physician Interpretation * * * * * * * * * * * * ORIGINAL REPORT * * * * * * * * EXAMINATION: XR CHEST 1V FRONTAL CLINICAL HISTORY: Post-operative / post-procedure assessment, symptomatic Comparison: Chest x-ray 09/21/2021 RESULT: Lines, tubes, and devices: * Mediastinal and bilateral pleural drains * Interval removal of endotracheal tube. * Stable position right internal jugular vein central line. Lungs and pleura: Small right pneumothorax, increased from prior exam, apical air gap is 2.5 cm. Increased opacity in the left apex, possibly combination of pneumothorax and fluid. Increasing bibasilar atelectasis. Cardiomediastinal silhouette: Surgical changes of recent coronary artery bypass. Bones/soft tissues: Increasing upper mediastinal air extending into the left lower neck subcutaneous tissues. IMPRESSION: 1. Surgical changes of recent coronary artery bypass. 2. Small right pneumothorax, increased from prior exam. 3. Increased opacity in the left apex, possibly a combination of pneumothorax and fluid. 4. Increasing bibasilar atelectasis. * * * * * * * * ADDENDUM #1 * * * * * * * * The finding of enlarging pneumothoraces was discussed with the patient's nurse 09/21/2021 at approximately 8:24 PM who will relay the message to the patient's physician. Manager Validation: ISAÍAS Transcribe Date/Time: Sep 22 2021 12:58A Dictated by : RACHELLE JOSE MD This examination was interpreted and the report reviewed and electronically signed by: RACHELLE JOSE MD on Sep 21 2021 8:21PM EST This document has been addended by: RACHELLE JOSE MD on Sep 22 2021 1:00AM EST [id number] Normal [facility] XR CHEST 1V FRONTAL * * *Final Report* * * DATE OF EXAM: Sep 21 2021 2:06PM [id number] - XR CHEST 1V FRONTAL / PROCEDURE REASON: Evaluate tube, line or lead position * * * * Physician Interpretation * * * * EXAMINATION: XR CHEST 1V FRONTAL CLINICAL HISTORY: Evaluate tube, line or lead position Comparison: None RESULT: Lines, tubes, and devices: * Right internal jugular vein central line tip projects over the distal superior vena cava. * Endotracheal tube tip distance from the stephane is approximately 5 cm. * Nasal/orogastric tube tip projects over the fundus of the stomach. * Mediastinal and bilateral chest tubes. Lungs and pleura: Trace bilateral apical pneumothoraces. No consolidations or pleural effusions. Cardiomediastinal silhouette: Surgical changes of coronary artery bypass. Trace pneumomediastinum. Bones/Soft tissues: Median sternotomy wires IMPRESSION: 1. Postsurgical changes of recent coronary artery bypass. 2. Trace bilateral apical pneumothoraces. Trace pneumomediastinum. Manager Validation: PSCB Transcribe Date/Time: Sep 21 2021 2:58P Dictated by : RACHELLE JOSE MD This examination was interpreted and the report reviewed and electronically signed by: RACHELLE JOSE MD on Sep 21 2021 3:01PM EST [id number] Normal [facility] aPTT PPPon 09-21-2021 aPTT Coag (PPP) [Time] 33.7 s High 23.0-32.4 [facility] Comment on above: Order Comment: Speci men Type: BLOOD SPECIMENOrdering Facility: [facility] Address: [address] [place] [address] Performed By: #### 3 255-7, 69276-8 ####[facility] [id number] [address] OF [facility] aPTT Coag (PPP) [Time] 33.3 s High 23.0-32.4 [facility] Comment on above: Order Comment: Speci men Type: BLOOD SPECIMENOrdering Facility: [facility] Address: [address] [place] [address] Performed By: #### 1 4979-9, 27308-0 ####[facility] LABORATORYCLIA [id number] [address] OF [facility] SARS-CoV-2 RNA Resp Ql LATRICE+p robeon 09-18-2021 SARS-CoV-2 (COVID-19) RNA LATRICE+probe Ql (Resp) COVID 19 RESULT: SARS-CoV-2 (Agent of COVID-19) Not Detected by RT-PCR or equivalent method. This test was developed and its performance characteristics determined by [facility] [place]. This test has been authorized by FDA under an Emergency Use Authorization (EUA). This test has been validated in accordance with the FDA's Guidance Document Policy for Diagnostics Testing in Laboratories Certified to Perform High Complexity Testing under CLIA prior to Emergency use Authorization for Coronavirus Disease 2019 during the Public Health Emergency issued on June 02, 2019. Test performed by [facility], [facility] [place], [address] [place] [address]. [address] [facility] Comment on above: Performed By: #### T SCR30 #### [facility] CLIA [id number] [address] OF [facility] Bacteria Ur Culton 2 Bacteria identified Cx Nom (U) ORGANISM ID: 1 10,000 -<50,000 CFU/ml Mixed microbiota Normal [facility] Comment on above: Performed By: #### T SCR30 #### [facility] CLIA [id number] [address] OF [facility] CNOVon 09-15-2021 CNOV Office Visit (UROLWS ) -- RADHA BRENNAN ([id number]) 1955 M Date Time Provider Department 09/15/21 1:20 PM MATT VILLEGAS UROLWS During your visit today, we recorded the following information about you: Temperature Pulse Respiration Blood pressure 97.8 degrees 86/minute 14/minute 104/64 Weight Height 63.5 kg 1.74 m [facility] 09/15/2021 2:15 PM Signed CC Post Void Residual HPI: Radha Brennan is a 66 year old male. The patient is here now for an appointment with SAM Oropeza, DESMOND FREEMAN. Procedure: Explained procedure to patient and verbalizes understanding. Performed a PVR. Patient urinated and instructed to empty bladder as much as possible just prior to having PVR done using bladder ultrasound scanner. Results of scan: 5 mL The patient tolerated the procedure well. Plan: Appointment with Matt. Matt Villegas PA-C 09/15/2021 2:15 PM Signed PATIENT INFO: Radha Brennan 66 year old ( ) REFERRING PROVIDER: PCP: Clement Swanson MD, MD September 15, 2021 HPI: Radha Brennan 66 year old male is here today for discussion and evaluation of blood in urine, he did have Blood on dipstick, and 6-10 RBC's today there is still Blood on dip however, when I looked at micro there were no RBC's at all in urine I suspect he may be getting over a UTI or prostate is bleeding scant amounts that are not visible but that will turn dipstick positive. I mentioned to him that after his surgery, if he does have a enlarged prostate, he may need to be see again if he has post-op urine retention. At this time I see no reason from a urological point of view that he should postpone his cardiac surgery. LUTS: Denies any LUTS at all Other symptoms: LABS: No results found for: TESTOST No results found for: TESTFREE No results found for: PSA Hematocrit (%) Date Value 09/11/2021 45.7 07/21/2021 43.5 MEDICATIONS: cyclobenzaprine (FLEXERIL) 5 mg tablet Take 5 mg by mouth once daily. metoprolol tartrate, short acting, (LOPRESSOR) 25 mg tablet Take 0.5 tablets by mouth one time only for 1 dose. Take am of surgery with your morning meds. DO NOT take Toprol XL ( metoprolol succinate) as well at this time. clopidogrel (PLAVIX) 75 mg tablet Take 75 mg by mouth once daily. isosorbide mononitrate ER (IMDUR) 30 mg 24 hr tablet Take 30 mg by mouth once daily. lamoTRIgine (LAMICTAL) 25 mg tablet Take 50 mg by mouth once daily. aspirin, enteric coated (ASPIRIN, ENTERIC COATED) 81 mg EC tablet Take 81 mg by mouth once daily. primidone (MYSOLINE) 50 mg tablet Take 50 mg by mouth twice daily. atorvastatin (LIPITOR) 40 mg tablet Take 40 mg by mouth once daily. metoprolol succinate ER (TOPROL XL) 25 mg 24 hr tablet Take 25 mg by mouth once daily. nitroglycerin sublingual (NITROQUICK) 0.4 mg SL tablet Dissolve 1 tablet under the tongue every 5 minutes as needed for Chest Pain. May of three doses. mupirocin (BACTROBAN) 2 % ointment Apply to affected area twice daily for 5 days. Chlorhexidine Gluconate (PERIDEX) 0.12 % solution Use 15 mL as instructed twice daily for 5 days. Rinse around mouth for 30 seconds then expectorate PAST MEDICAL HISTORY: 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 (HCC) - 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 (HCC) - LV dysfunction mild - Mixed hyperlipidemia - Seizure (HCC) - Tobacco use disorder PAST SURGICAL HISTORY: PAST SURGICAL HISTORY Procedure Laterality Date - LUMBAR PUNCTURE - OTHER 2018 ptca ZOLTAN to mid LAF and second diagonal - PAST SURGICAL HISTORY OF lymph node resection FAMILY HISTORY: FAMILY HISTORY Problem Relation Age of Onset - Heart Attack Mother - Heart Attack Brother SOCIAL HISTORY: Social Connections: Not on file REVIEW OF SYSTEMS: GENERAL: No fever, chills, weight loss, or fatigue. ENMT: Negative CARDIOVASCULAR:NO CHEST PAIN, PALPITATIONS, ANKLE EDEMA RESPIRATORY: No chronic cough, wheezing, dyspnea, hemoptysis. GENITOURINARY: SEE HPI MUSCULOSKELETAL:NO CHRONIC BACK PAIN, ARTHRITIS, CHRONIC NECK PAIN SKIN: NO VARICOSE VEINS, RASH, ABNORMAL ITCHING HEME/LYMPH/IMMUNE:Negative for prolonged bleeding, bruising easily or swollen nodes NEUROLOGICAL: NO HEADACHES, NUMBNESS, SEIZURES, STROKE DIABETES: No All other systems reviewed and are negative PHYSICAL EXAMINATION: There were no vitals taken for this visit. GENERAL: WNL nutrition, no deformities, healthy appearing NEURO: Awake, alert and oriented x 3 and Normal gait PSYCH: No signs of depression, anxiety, or agitation ENMT (Ear, Nose, Mouth, Throat): No masses, adenopathy, icterus. Thyroid nonpalpable RESP: NL (more content not included)... Normal [facility] UA DIP, URINE (POC)on 2021 BILIRUBIN UA (POCT) Negative Negative [facility] CLARITY UA (POCT) Clear [facility] COLOR UA (POCT) Light yellow [facility] GLUCOSE UA (POCT) Negative Negative mg/dL [facility] HEMOGLOBIN/BLOOD UA (POCT) Small Abnormal Negative [facility] KETONE UA (POCT) Negative Negative mg/dL [facility] LEUKOCYTES UA (POCT) Trace Abnormal Negative [facility] NITRITE UA (POCT) Negative Negative [facility] PH UA (POCT) 6.0 4.5 - 8.0 [facility] Protein Ql (U) Negative Negative mg/dL [facility] SPECIFIC GRAVITY UA (POCT) 1.010 1.005 - 1.030 [facility] UROBILINOGEN UA (POCT) 0.2 E.U./dL Normal E.U./dL [facility] Mike 09-14-2021 CNPN Telephone (LEONOR) -- RADHA BRENNAN ([id number]) 1955 M Date Time Provider Department 09/14/21 LINDA WINKLER During your visit today, we recorded the following information about you: Linda Winkler APRN.ODALIS 09/14/2021 3:47 PM Signed Spoke with Mr. Brennan and relayed results of UA. He denies any prior urinary or prostate history. Denies any urinary complaints. I explained that he will need to see urology pre op for work up/clearance. This may possibly delay elective CABG date. He verbalized understanding. Urology consult placed. Linda Winkler APRN.BULL BUCKER Allergies As of Date: 09/14/2021 Noted Allergy Reaction TUBERCULIN, PURIFIED PROTEIN DERI*06/25/2021 7 - Swelling VENOM-HONEY BEE 06/25/2021 7 - Swelling Date Reviewed: 09/13/2021 Reviewed by: Linda Winkler APRN.BULL BUCKER - Fully Assessed Reason for Visit: Results [95] Primary Visit Diagnosis:Hemoglobinuria [R82.3] Order(s):CONSULT TO UROLOGY [9041] Order #: [id number]: 1 Prescriptions as of 09/14/2021 - mupirocin (BACTROBAN) 2 % ointment Apply to affected area twice daily for 5 days. - Chlorhexidine Gluconate (PERIDEX) 0.12 % solution Use 15 mL as instructed twice daily for 5 days. Rinse around mouth for 30 seconds then expectorate - metoprolol tartrate, short acting, (LOPRESSOR) 25 mg tablet Take 0.5 tablets by mouth one time only for 1 dose. Take am of surgery with your morning meds. DO NOT take Toprol XL ( metoprolol succinate) as well at this time. - clopidogrel (PLAVIX) 75 mg tablet Take 75 mg by mouth once daily. - isosorbide mononitrate ER (IMDUR) 30 mg 24 hr tablet Take 30 mg by mouth once daily. - lamoTRIgine (LAMICTAL) 25 mg tablet Take 50 mg by mouth once daily. - aspirin, enteric coated (ASPIRIN, ENTERIC COATED) 81 mg EC tablet Take 81 mg by mouth once daily. - primidone (MYSOLINE) 50 mg tablet Take 50 mg by mouth twice daily. - atorvastatin (LIPITOR) 40 mg tablet Take 40 mg by mouth once daily. - metoprolol succinate ER (TOPROL XL) 25 mg 24 hr tablet Take 25 mg by mouth once daily. - nitroglycerin sublingual (NITROQUICK) 0.4 mg SL tablet Dissolve 1 tablet under the tongue every 5 minutes as needed for Chest Pain. May of three doses. Facility-Administered Medications as of 09/14/2021 - perflutren lipid microspheres 1.3 mL in NaCl (PF) 0.9% 10 mL injection (DEFINITY) - sodium chloride 0.9 % (flush) 10 mL (BD POSIFLUSH) Problem List As Of Date 09/14/2021 Noted Resolved Tobacco abuse [Z72.0] 05/12/2020 Screening for colon cancer [Z12.11] 05/12/2020 Seizures (HCC) [R56.9] 05/12/2020 Cerebrovascular accident (CVA) (HCC) [I63.9] 05/12/2020 Diarrhea [R19.7] 05/12/2020 LV dysfunction [I51.9] Atrial septal aneurysm [I25.3] Mixed hyperlipidemia [E78.2] Coronary artery disease involving catawba joy* Encounter Status:Closed by LINDA WINKLER CNP on 09/14/21 Normal [facility] CBC panel Auto (Bld)on 09-11 Erythrocyte distribution width (RBC) [Ratio] 12.5 % Normal 11.5-15.0 [facility] Comment on above: Order Comment: Speci men Type: BLOOD SPECIMENOrdering Facility: [facility] Address: [address] [place] [address] Performed By: #### 5 8410-2 ####[facility] LABORATORYCLIA [id number] [address] Hematocrit (Bld) [Volume fraction] 45.7 % Normal 39.0-51.0 [facility] Comment on above: Order Comment: Speci men Type: BLOOD SPECIMENOrdering Facility: [facility] Address: [address] [place] [address] Performed By: #### 5 8410-2 ####[facility] LABORATORYCLIA [id number] [address] OF [facility] Hemoglobin (Bld) [Mass/Vol] 14.9 g/dL Normal 13.0-17.0 [facility] Comment on above: Order Comment: Speci men Type: BLOOD SPECIMENOrdering Facility: [facility] Address: [address] [place] [address] Performed By: #### 5 8410-2 ####[facility] LABORATORYCLIA [id number] [address] OF [place] MCH (RBC) [Entitic mass] 32.1 pg Normal 26.0-34.0 [facility] Comment on above: Order Comment: Speci men Type: BLOOD SPECIMENOrdering Facility: [facility] Address: [address] [place] [address] Performed By: #### 5 8410-2 ####[facility] LABORATORYCLIA [id number] [address] OF [place] MCHC (RBC) [Mass/Vol] 32.6 g/dL Normal 30.5-36.0 [facility] Comment on above: Order Comment: Speci men Type: BLOOD SPECIMENOrdering Facility: [facility] Address: [address] [place] [address] Performed By: #### 5 8410-2 ####[facility] LABORATORYCLIA [id number] [address] MCV (RBC) [Entitic vol] 98.5 fL Normal 80.0-100.0 [facility] Comment on above: Order Comment: Speci men Type: BLOOD SPECIMENOrdering Facility: [facility] Address: [address] [place] [address] Performed By: #### 5 8410-2 ####[facility] LABORATORYCLIA [id number] [address] Nucleated RBC (Bld) [#/Vol] 10*3/uL Normal <0.01 [facility] Comment on above: Order Comment: Speci men Type: BLOOD SPECIMENOrdering Facility: [facility] Address: [address] [place] [address] Performed By: #### 5 8410-2 ####[facility] LABORATORYCLIA [id number] [address] Platelet mean volume (Bld) [Entitic vol] 9.6 fL Normal 9.0-12.7 [facility] Comment on above: Order Comment: Speci men Type: BLOOD SPECIMENOrdering Facility: [facility] Address: [address] [place] [address] Performed By: #### 5 8410-2 ####[facility]ORATORYCLIA [id number] [address] Platelets (Bld) [#/Vol] 341 10*3/uL Normal 150-400 [facility] Comment on above: Order Comment: Speci men Type: BLOOD SPECIMENOrdering Facility: [facility] Address: [address] [place] [address] Performed By: #### 5 8410-2 ####[facility] LABORATORYCLIA [id number] [address] OF [place] RBC (Bld) [#/Vol] 4.64 10*6/uL Normal 4.20-6.00 [facility] Comment on above: Order Comment: Specamy perez Type: BLOOD SPECIMENOrdering Facility: [facility] Address: [address] [place], [place] [address] Performed By: #### 5 8410-2 ####[facility] LABORATORYCLIA [id number] [address] WBC (Bld) [#/Vol] 9.76 10*3/uL Normal 3.70-11.00 [facility] Comment on above: Order Comment: Speci men Type: BLOOD SPECIMENOrdering Facility: [facility] Address: [address] [place], [place] [address] Performed By: #### 5 8410-2 ####[facility] LABORATORYCLIA [id number] [address] CNOVon 09-11-2021 CNOV Office Visit (AGVASIvet CC) -- RADHA BRENNAN ([id number]) 1955 M Date Time Provider Department 09/11/21 2:00 PM LINDA WINKLER During your visit today, we recorded the following information about you: Pulse Respiration Blood pressure Weight 68/minute 18/minute 100/68 61.7 kg Height 1.753 m Linda Winkler APRN.BULL BUCKER 09/18/2021 5:48 PM Addendum HISTORY and PHYSICAL CARDIOTHORACIC SURGERY Cardiothoracic Physician: Dr. Dominguez NAME: Radha Irelandler HEIGHT: 175 cm WEIGHT: 61.7 kg Intended Procedure: Isolated CABG REDO: No STS SCORE: STS Adult Cardiac Surgery Database Version 4.20 RISK SCORES Procedure: Isolated CAB Risk of Mortality: 1.130% Renal Failure: 0.623% Permanent Stroke: 1.195% Prolonged Ventilation: 6.860% DSW Infection: 0.146% Reoperation: 3.841% Morbidity or Mortality: 10.974% Short Length of Stay: 50.020% Long Length of Stay: 4.336% ? HPI: This is a 66 year old man with past medical history of coronary artery disease, hyperlipidemia, ongoing and prolonged tobacco use (1.5 packs of series per day, started age 5), and prior CVA. In 2018, he underwent stenting with drug-eluting stents to the left anterior descending artery and second diagonal branch 2018 after presenting with anginal symptoms. He had a good result with this. Now experiencing exertional and nonexertional episodes of chest discomfort, and ocassional dizziness. He continues to work and is physically active. He reports some shortness of breath with exertional activities, which appears be chronic in nature. Repeat left heart catheterization 06/15/21 shows the following: Ejection fraction 65% by left ventriculography EDP 18 mmHg Left main normal LAD proximal 75% lesion before origin of stent Mid LAD stent intact Diagonal 1 ostial subtotal occlusion Diagonal 2 patent stent Circumflex artery normal Right coronary mild luminal irregularities MRI in 2019 showed mild cerebral atrophy; events of chronic white matter ischemic changes; previous watershed infarct in the right posterior parietal lobe. CT scan demonstrated stable posterior MCA territory infarction in 2018. CT also demonstrated normal right common carotid artery; normal right internal carotid artery; normal left common carotid artery; normal left internal carotid artery; suspicious for 50% lesions of the origin of bilateral subclavian arteries. Carotid Dublex 07/2021 revealed ? RIGHT SIDE Common carotid artery: Plaque visualized without evidence of hemodynamically significant stenosis. Internal carotid artery: 20-39% stenosis. Vertebral artery: Patent and antegrade flow noted. LEFT SIDE Common carotid artery: Plaque visualized without evidence of hemodynamically significant stenosis. Internal carotid artery: 20-39% stenosis. Vertebral artery: Patent and antegrade flow noted. Echo 07/2021 Technically difficult exam due to body habitus. - Exam indication: Chest Pain - The left ventricle is normal in size. Left ventricular systolic function is normal. EF = 52 ? 5% (2D biplane) Grade I left ventricular diastolic dysfunction. - The right ventricle is normal in size. Right ventricular systolic function is normal. CTA Chest (gated) 07/2021 IMPRESSION: 1. ?Normal thoracic aorta. ?No acute aortic pathology identified. 2. ?Severe coronary artery calcifications. 3. ?Old granulomatous disease. ? Lung function test from 2018 demonstrated mild large airways obstructive ventilatory defect. Spirometry 07/2021 revealed mild obstruction. He reports today that his symptoms are largely unchanged. Denies any recent hospitalizations or illnesses. No fevers or chills. Denies any prior issues with anesthesia. He continues to smoke and has cut down to 1PPD Comorbidities include COPD and Hyperlipidemia PAST MEDICAL HISTORY: 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 (HCC) - 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 (HCC) - LV dysfunction mild - Mixed hyperlipidemia - Seizure (HCC) - Tobacco use disorder PAST SURGICAL HISTORY: PAST SURGICAL HISTORY Procedure Laterality Date - LUMBAR PUNCTURE - OTHER 2018 ptca ZOLTAN to mid LAF and second diagonal - PAST SURGICAL HISTORY OF lymph node resection FAMILY HISTORY: FAMILY HISTORY Problem Relation Age of Onset - Heart Attack Mother - Heart Attack Brother FAMILY HISTORY OF CAD: Yes SOCIAL HISTORY: Social History Tobacco Use - Smoking status: Current Every Day Smoker Packs/day: 1.00 Years: 61.00 Pack years: 61.00 Types: Cigarettes - Smokeless tobacco: Never Used Substance Use Topics (more content not included)... Normal [facility] Comprehensive metabolic 2000 panelon 09-11-2021 Albumin [Mass/Vol] 4.3 g/dL Normal 3.9-4.9 [facility] Comment on above: Order Comment: Speci men Type: BLOOD SPECIMENOrdering Facility: [facility] Address: [address] [place] [address] Performed By: #### 2 4323-8 ####[facility] LABORATORYCLIA [id number] [address] STATES OF [facility] ALP [Catalytic activity/Vol] 96 U/L Normal 38-113 [facility] Comment on above: Order Comment: Speci men Type: BLOOD SPECIMENOrdering Facility: [facility] Address: [address] [place] [address] Performed By: #### 2 4323-8 ####[facility] LABORATORYCLIA [id number] [place] [address] [place] ALT With P-5'-P [Catalytic activity/Vol] 14 U/L Normal 10-54 [facility] Comment on above: Order Comment: Speci men Type: BLOOD SPECIMENOrdering Facility: [facility] Address: [address] [place] [address] Performed By: #### 2 4323-8 ####[facility] LABORATORYCLIA [id number] [place] [address] [place] Anion gap [Moles/Vol] 9 mmol/L Normal 9-18 [facility] Comment on above: Order Comment: Speci men Type: BLOOD SPECIMENOrdering Facility: [facility] Address: [address] [place] [address] Performed By: #### 2 4323-8 ####[facility] LABORATORYCLIA [id number] [place] [address] [place] AST With P-5'-P [Catalytic activity/Vol] 18 U/L Normal 14-40 [facility] Comment on above: Order Comment: Speci men Type: BLOOD SPECIMENOrdering Facility: [facility] Address: [address] [place] [address] Performed By: #### 2 4323-8 ####[facility] LABORATORYCLIA [id number] [address] [place] Bilirubin [Mass/Vol] 0.5 mg/dL Normal 0.2-1.3 [facility] Comment on above: Order Comment: Speci men Type: BLOOD SPECIMENOrdering Facility: [facility] Address: [address] [address] Performed By: #### 2 4323-8 ####[facility]ORATORYCLIA [id number] [address] [place] Calcium [Mass/Vol] 9.4 mg/dL Normal 8.5-10.2 [facility] Comment on above: Order Comment: Speci men Type: BLOOD SPECIMENOrdering Facility: [facility] Address: [address] [place] [address] Performed By: #### 2 4323-8 ####[facility] LABORATORYCLIA [id number] [address] [place] Chloride [Moles/Vol] 99 mmol/L Normal 97-105 [facility] Comment on above: Order Comment: Speci men Type: BLOOD SPECIMENOrdering Facility: [facility] Address: [address] [place] [address] Performed By: #### 2 4323-8 ####[facility]ORATORYCLIA [id number] [address] STATES OF [facility] CO2 [Moles/Vol] 31 mmol/L High 22-30 [facility] Comment on above: Order Comment: Speci men Type: BLOOD SPECIMENOrdering Facility: [facility] Address: [address] [place] [address] Performed By: #### 2 4323-8 ####[facility]ORATORYCLIA [id number] [address] Creatinine [Mass/Vol] 0.94 mg/dL Normal 0.73-1.22 [facility] Comment on above: Order Comment: Speci men Type: BLOOD SPECIMENOrdering Facility: [facility] Address: [address] [place] [address] Performed By: #### 2 4323-8 ####[facility]ORATORYCLIA [id number] [address] ESTIMATED GLOMERULAR FILTRATION RATE 89 mL/min/1.73m??? Normal >=60 [facility] Comment on above: Order Comment: Speci men Type: BLOOD SPECIMENOrdering Facility: [facility] Address: [address] [place] [address] Result Comment: Teena mated Glomerular Filtration Rate (eGFR) is calculated using the 2020 CKD-EPI creatinine equation. This equation utilizes serum creatinine, sex, and age as parameters. The creatinine assay has traceable calibration to isotope dilution-mass spectrometry. Refer to KDIGO guidelines for clinical interpretation. In patients with unstable renal function, e.g. those with acute kidney injury, the eGFR may not accurately reflect actual GFR. Performed By: #### 2 4323-8 ####[facility]ORATORYCLIA [id number] [place] [address] [place] Glucose [Mass/Vol] 88 mg/dL Normal 74-99 [facility] Comment on above: Order Comment: Speci men Type: BLOOD SPECIMENOrdering Facility: [facility] Address: [address] [place] [address] Result Comment: The [place] Diabetes Association (ADA) provides guidance for cutoff values for fasting glucose and random glucose. The ADA defines fasting as no caloric intake for at least 8 hours. Fasting plasma glucose results between 100 to 125 mg/dL indicate increased risk for diabetes (prediabetes). Fasting plasma glucose results greater than or equal to 126 mg/dL meet the criteria for diagnosis of diabetes. In the absence of unequivocal hyperglycemia, results should be confirmed by repeat testing. In a patient with classic symptoms of hyperglycemia or hyperglycemic crisis, random plasma glucose results greater than or equal to 200 mg/dL meet the criteria for diagnosis of diabetes. Reference: Standards of Medical Care in Diabetes 2016, [place] [employer] Association. Diabetes Care. 2016.39(Suppl 1). Performed By: #### 2 4323-8 ####[facility] LABORATORYCLIA [id number] [place] [address] [place] Potassium [Moles/Vol] 4.2 mmol/L Normal 3.7-5.1 [facility] Comment on above: Order Comment: Speci men Type: BLOOD SPECIMENOrdering Facility: [facility] Address: [address] [place] [address] Performed By: #### 2 4323-8 ####[facility] LABORATORYCLIA [id number] [place] [address] [place] Protein [Mass/Vol] 6.8 g/dL Normal 6.3-8.0 [facility] Comment on above: Order Comment: Speci men Type: BLOOD SPECIMENOrdering Facility: [facility] Address: [address] [place] [address] Performed By: #### 2 4323-8 ####[facility] LABORATORYCLIA [id number] [address] OF [facility] Sodium [Moles/Vol] 139 mmol/L Normal 136-144 [facility] Comment on above: Order Comment: Anam perez Type: BLOOD SPECIMENOrdering Facility: [facility] Address: [address] [place] [address] Performed By: #### 2 4323-8 ####[facility] LABORATORYCLIA [id number] [address] [place] Urea nitrogen [Mass/Vol] 8 mg/dL Low 9-24 [facility] Comment on above: Order Comment: Anam perez Type: BLOOD SPECIMENOrdering Facility: [facility] Address: [address] [place] [address] Performed By: #### 2 4323-8 ####[facility] LABORATORYCLIA [id number] [address] OF [facility] Laboratory - Microbiology an d Antimicrobial susceptibilityon 09-11-2021 S. aureus and MRSA panel LATRICE+probe (Nose) Negative Negative [facility] Magnesium SerPl-mCncon 09-11 Magnesium [Mass/Vol] 2.0 mg/dL Normal 1.7-2.3 [facility] Comment on above: Order Comment: Anam perez Type: BLOOD SPECIMENOrdering Facility: [facility] Address: [address] [place] [address] Performed By: #### 1 9123-9 ####[facility] LABORATORYCLIA [id number] [address] [place] PT panel Coag (PPP)on 2021 INR Coag (PPP) [Relative time] 1.0 {INR} Normal 0.9-1.3 [facility] Comment on above: Order Comment: Anam perez Type: BLOOD SPECIMENOrdering Facility: [facility] Address: [address] [place] [address] Result Comment: Maggie min K Antagonist (VKA) Therapeutic Range: INR 2 to 3 (Target INR of 2.5) Note: For patients treated with VKA drugs, such as warfarin, the [place] [employer] 2012 Guideline recommends a therapeutic INR range of 2 to 3 (target INR of 2.5). This recommendation includes high-risk patients with antiphospholipid syndrome with previous arterial or venous thromboembolism, current-generation mechanical or bioprosthetic aortic heart valve replacement. Note: Patients with mechanical aortic valve replacement and additional risk factors for thromboembolic events (atrial fibrillation, previous thromboembolism, LV dysfunction, hypercoagulable conditions) or an older generation mechanical AVR (i.e., ball in-Cage) or any mechanical MVR should have a INR therapeutic range of 2.5 to 3.5 (target INR of 3). Shiloh AGUILERA, et al. Chest 2012, 141:7S-47S Jose Angel RA, et al. [facility] 2017, 70: 252-289 Performed By: #### 3 4528-0 ####[facility] LABORATORYCLIA [id number] [address] OF [facility] PT Coag (PPP) [Time] 10.9 s Normal 9.7-13.0 [facility] Comment on above: Order Comment: Speci men Type: BLOOD SPECIMENOrdering Facility: [facility] Address: [address] [place] [address] Performed By: #### 3 4528-0 ####[facility]PITALCLIA [id number] [address] STAPH AUREUS PCRon 2 S. aureus and MRSA panel LATRICE+probe (Nose) Normal Negative [facility] Comment on above: Order Comment: Speci chris Type: SWAB OF INTERNAL NOSEOrdering Facility: [facility] Address: [address] [address] Result Comment: Nega tive for Staphylococcus aureus by PCR. Negative for MRSA by PCR Performed By: #### S APCR ####[facility] LABORATORYCLIA [id number] [address] OF [facility] TYPE AND SCREEN,30 DAYon ABO O Normal [facility] Comment on above: Order Comment: Speci men Type: BLOOD SPECIMENOrdering Facility: [facility] Address: [address] [address] Performed By: #### T SCR30 ####[facility] BLOOD BANKCLIA [id number] [address] HISTORICAL AB SCR STATUS Negative Normal [facility] Comment on above: Order Comment: Speci men Type: BLOOD SPECIMENOrdering Facility: [facility] Address: [address] [place] [address] Performed By: #### T SCR30 ####[facility] BLOOD BANKCLIA [id number] [address] Rh Nom (Bld) Positive Normal [facility] Comment on above: Order Comment: Speci men Type: BLOOD SPECIMENOrdering Facility: [facility] Address: [address] [place] [address] Performed By: #### T SCR30 ####[facility] BLOOD BANKCLIA [id number] [address] Urinalysis complete panel (U )on 09-11-2021 Bilirubin Ql (U) Negative Normal Negative [facility] Comment on above: Order Comment: Speci men Type: URINE SPECIMENOrdering Facility: [facility] Address: [address] [place] [address] Performed By: #### 2 4356-8 ####[facility] LABORATORYCLIA [id number] [address] Clarity (Unsp spec) Clear Normal Clear [facility] Comment on above: Order Comment: Speci men Type: URINE SPECIMENOrdering Facility: [facility] [facility] Address: [address] [place] [address] Performed By: #### 2 4356-8 ####[facility] LABORATORYCLIA [id number] [address] Color (U) Light Yellow Normal yellow [facility] Comment on above: Order Comment: Speci men Type: URINE SPECIMENOrdering Facility: [facility] Address: [address] [place] [address] Performed By: #### 2 4356-8 ####[facility]ORATORYCLIA [id number] [address] Glucose Test strip (U) [Mass/Vol] Negative Normal Negative [facility] Comment on above: Order Comment: Speci men Type: URINE SPECIMENOrdering Facility: [facility] Address: [address] [place] [address] Performed By: #### 2 4356-8 ####[facility]ATORYCLIA [id number] [address] Hemoglobin Ql (U) 1+ Abnormal Negative [facility] Comment on above: Order Comment: Speci men Type: URINE SPECIMENOrdering Facility: [facility] Address: [address] [place] [address] Performed By: #### 2 4356-8 ####[facility] LABORATORYCLIA [id number] [address] [place] [facility] Ketones Ql (U) Negative Normal Negative [facility] Comment on above: Order Comment: Speci men Type: URINE SPECIMENOrdering Facility: [facility] Address: [address] [place] [address] Performed By: #### 2 4356-8 ####[facility] LABORATORYCLIA [id number] [address] Leukocyte esterase Test strip Ql (U) Negative Normal Negative [facility] Comment on above: Order Comment: Speci men Type: URINE SPECIMENOrdering Facility: [facility] Address: [address] [address] Performed By: #### 2 4356-8 ####[facility]ATORYCLIA [id number] [address] [place] Nitrite Ql (U) Negative Normal Negative [facility] Comment on above: Order Comment: Speci men Type: URINE SPECIMENOrdering Facility: [facility] Address: [address] [address] Performed By: #### 2 4356-8 ####[facility]ATORYCLIA [id number] [place] [address] [place] pH (U) 6.0 [pH] Normal 5.0-8.0 [facility] Comment on above: Order Comment: Speci men Type: URINE SPECIMENOrdering Facility: [facility] Address: [address] [place] [address] Performed By: #### 2 4356-8 ####[facility] LABORATORYCLIA [id number] [address] [place] Protein (U) [Mass/Vol] Normal [facility] Comment on above: Order Comment: Speci men Type: URINE SPECIMENOrdering Facility: [facility] Address: [address] [place] [address] Result Comment: Visi ble blood causes falsely elevated results for analyte Protein. Due to this limitation, Protein will not be reported for patients whose urine contains visible blood. Performed By: #### 2 4356-8 ####[facility] LABORATORYCLIA [id number] [address] [place] RBC LM.HPF (Urine sed) [#/Area] 6-10 /HPF Abnormal 0-3 /HPF [facility] Comment on above: Order Comment: Speci men Type: URINE SPECIMENOrdering Facility: [facility] Address: [address] [place] [address] Performed By: #### 2 4356-8 ####[facility] LABORATORYCLIA [id number] [address] [place] Specific gravity (U) [Rel density] 1.008 Normal 1.005-1.030 [facility] Comment on above: Order Comment: Speci men Type: URINE SPECIMENOrdering Facility: [facility] Address: [address] [place] [address] Performed By: #### 2 4356-8 ####[facility]ORATORYCLIA [id number] [address] [place] Urobilinogen Ql (U) Normal Normal Negative [facility] Comment on above: Order Comment: Speci men Type: URINE SPECIMENOrdering Facility: [facility] Address: [address] [place] [address] Performed By: #### 2 4356-8 ####[facility]ITALCLIA [id number] [address] WBC LM.HPF (Urine sed) [#/Area] 0-5 /HPF Normal 0-5 /HPF [facility] Comment on above: Order Comment: Speci men Type: URINE SPECIMENOrdering Facility: [facility] Address: [address] [place] [address] Performed By: #### 2 4356-8 ####[facility]ORATORYCLIA [id number] [address] CNPCarolyn 09-08-2021 CNPN Telephone (Alere) -- RADHA BRENNAN ([id number]) 1955 M Date Time Provider Department 09/08/21 GREGORIO DOMINGUEZ During your visit today, we recorded the following information about you: Warren Luciano 09/08/2021 9:25 AM Signed Phoned pt regarding new surgery date. CABG 09/21/21 arrival time at 6am procedure time 7:30am at [facility] COVID test 09/18/21 2pm in [place]. Allergies As of Date: 09/08/2021 Noted Allergy Reaction TUBERCULIN, PURIFIED PROTEIN DERI*06/25/2021 7 - Swelling VENOM-HONEY BEE 06/25/2021 7 - Swelling Date Reviewed: 07/24/2021 Reviewed by: Katherine Constantino RN - Fully Assessed Reason for Visit: Appointment Rescheduled [1024] Cmt: new surgery date Prescriptions as of 09/08/2021 - metoprolol tartrate, short acting, (LOPRESSOR) 25 mg tablet Take 0.5 tablets by mouth one time only for 1 dose. Take am of surgery with your morning meds. DO NOT take Toprol XL ( metoprolol succinate) as well at this time. - clopidogrel (PLAVIX) 75 mg tablet Take 75 mg by mouth once daily. - isosorbide mononitrate ER (IMDUR) 30 mg 24 hr tablet Take 30 mg by mouth once daily. - lamoTRIgine (LAMICTAL) 25 mg tablet Take 50 mg by mouth once daily. - aspirin, enteric coated (ASPIRIN, ENTERIC COATED) 81 mg EC tablet Take 81 mg by mouth once daily. - primidone (MYSOLINE) 50 mg tablet Take 50 mg by mouth twice daily. - atorvastatin (LIPITOR) 40 mg tablet Take 40 mg by mouth once daily. - metoprolol succinate ER (TOPROL XL) 25 mg 24 hr tablet Take 25 mg by mouth once daily. - nitroglycerin sublingual (NITROQUICK) 0.4 mg SL tablet Dissolve 1 tablet under the tongue every 5 minutes as needed for Chest Pain. August of three doses. Facility-Administered Medications as of 09/08/2021 - perflutren lipid microspheres 1.3 mL in NaCl (PF) 0.9% 10 mL injection (DEFINITY) - sodium chloride 0.9 % (flush) 10 mL (BD POSIFLUSH) Problem List As Of Date 09/08/2021 Noted Resolved Tobacco abuse [Z72.0] 05/12/2020 Screening for colon cancer [Z12.11] 05/12/2020 Seizures (HCC) [R56.9] 05/12/2020 Cerebrovascular accident (CVA) (HCC) [I63.9] 05/12/2020 Diarrhea [R19.7] 05/12/2020 LV dysfunction [I51.9] Atrial septal aneurysm [I25.3] Mixed hyperlipidemia [E78.2] Coronary artery disease involving catawba joy* Encounter Status:Closed by WARREN LUCIANO on 09/08/21 [facility] Mike 08-14-2021 ODALISN Telephone (AGVASACC) -- RADHA BRENNAN ([id number]) 1955 M Date Time Provider Department 08/14/21 GREGORIO DOMINGUEZ During your visit today, we recorded the following information about you: Warren Luciano 08/14/2021 9:59 AM Signed Pt calling to reschedule CABG with Dr. Dominguez. Warren Luciano 08/21/2021 4:20 PM Signed Phoned pt regarding future appts. Itinerary mailed to his home. Preadmission instructions 09/11/21 2pm. Preoperative labs to be drawn while, since pt comes from [place]. COVID test 09/15/21 @ [place] [facility] CABG 09/18/21 arrival time 6am procedure time 7:30am at [facility]. Allergies As of Date: 08/14/2021 Noted Allergy Reaction TUBERCULIN, PURIFIED PROTEIN DERI*06/25/2021 7 - Swelling VENOM-HONEY BEE 06/25/2021 7 - Swelling Date Reviewed: 07/24/2021 Reviewed by: Katherine Constantino RN - Fully Assessed Reason for Visit: Orders [681] Primary Visit Diagnosis:Coronary artery disease involving catawba coronary artery of catawba heart without angina pectoris [I25.10] Other Visit Diagnosis:Preoperative testing [Z01.818] Order(s):SURGICAL REQUEST - ELECTIVE (11/2019) [8756673] Order #: [id number]: 1 CBC [SQCBC] Order #: [id number] FUTURE COMP METABOLIC PANEL [SQCMP] Order #: [id number] FUTURE PROTHROMBIN TIME/PT [SQPT] Order #: [id number] FUTURE TYPE AND SCREEN,30 DAY [XUGANY67] Order #: [id number] FUTURE MAGNESIUM BLD [SQMG1] Order #: [id number] FUTURE UA WITH CULTURE IF INDICATED [SQUACII] Order #: [id number] FUTURE Prescriptions as of 08/21/2021 - metoprolol tartrate, short acting, (LOPRESSOR) 25 mg tablet Take 0.5 tablets by mouth one time only for 1 dose. Take am of surgery with your morning meds. DO NOT take Toprol XL ( metoprolol succinate) as well at this time. - clopidogrel (PLAVIX) 75 mg tablet Take 75 mg by mouth once daily. - isosorbide mononitrate ER (IMDUR) 30 mg 24 hr tablet Take 30 mg by mouth once daily. - lamoTRIgine (LAMICTAL) 25 mg tablet Take 50 mg by mouth once daily. - aspirin, enteric coated (ASPIRIN, ENTERIC COATED) 81 mg EC tablet Take 81 mg by mouth once daily. - primidone (MYSOLINE) 50 mg tablet Take 50 mg by mouth twice daily. - atorvastatin (LIPITOR) 40 mg tablet Take 40 mg by mouth once daily. - metoprolol succinate ER (TOPROL XL) 25 mg 24 hr tablet Take 25 mg by mouth once daily. - nitroglycerin sublingual (NITROQUICK) 0.4 mg SL tablet Dissolve 1 tablet under the tongue every 5 minutes as needed for Chest Pain. August of three doses. Facility-Administered Medications as of 08/21/2021 - perflutren lipid microspheres 1.3 mL in NaCl (PF) 0.9% 10 mL injection (DEFINITY) - sodium chloride 0.9 % (flush) 10 mL (BD POSIFLUSH) Problem List As Of Date 08/14/2021 Noted Resolved Tobacco abuse [Z72.0] 05/12/2020 Screening for colon cancer [Z12.11] 05/12/2020 Seizures (HCC) [R56.9] 05/12/2020 Cerebrovascular accident (CVA) (HCC) [I63.9] 05/12/2020 Diarrhea [R19.7] 05/12/2020 LV dysfunction [I51.9] Atrial septal aneurysm [I25.3] Mixed hyperlipidemia [E78.2] Coronary artery disease involving catawba joy* Encounter Status:Closed by LINDA WINKLER CNP on 08/21/21 [facility] Jude 07-24-2021 CNAMADO Office Visit (CR LUA) -- RADHA BRENNAN ([id number]) 1955 M Date Time Provider Department 07/24/21 10:00 AM LISET OCAMPO During your visit today, we recorded the following information about you: Linda Winkler APRN.ODALIS 07/24/2021 10:17 AM Addendum [facility] Pre-Admission Patient Instruction You are scheduled for surgery (inpatient) located on the 2nd Floor on: TuesdayJuly 27 (your surgery date is subject to change should there be emergencies). Come in the Front Doors / Main Entrance of the hospital. No need to stop at front entrance registration. [facility] at: 6 AM 1. Nothing by mouth after midnight: Do not eat or drink anything, including water and coffee, after 12 AM on the morning of your surgery. This is important because if you do, your surgery may have to be cancelled. Eat a light supper the evening before surgery or follow specific doctor's instructions. 2. Oral hygiene and a shower or bath is required the evening before or the morning of surgery. Use the prescribed mouth water and Hibiclens body wash supplied to you along with the instruction. 3. Do not chew gum/mints, or use oral spray the morning of surgery. 4. Notify your doctor if you develop a cold, sore throat, fever or other changes in your physical condition. 5. No alcohol 24 hours before or after surgery and refrain from smoking the morning of surgery and immediately following surgery. 6. Leave valuables such as rings, watches and money at home. Remove all make-up and nail south af[place] before admission. We need to check your circulation. Remove jewelry from all piercings, tongue included, as no metal can go into surgery. 7. Wear loose, comfortable clothing that will accommodate bandages. 8. You will be asked to remove glasses and contacts prior to surgery. Please bring a case. Your belongings will be kept in an assigned locker until we know your new room. 9. Please bring your CPAP or BIPAP or any necessary medical equipments, we will keep them in an assigned locker until you are assigned a post-op room. 10. Your length of stay will be determined by your surgeon, the anesthesiologist as well as your post of progress. 11. Given COVID-19 pandemic, 2 designated visitor are allowed on the day of surgery and have the same visitors everyday after the surgery on rotating basis. On the morning of surgery, your point of contact will be instructed on communication regarding surgery updates. 12. Please bring a list of any medication you are taking including dose and the condition for which you are being treated. Medications to stop in preparing surgery: ? Stop Anticoagulant: , last dose of PLAVIX should have been on 07/21/2021 Infection control and prevention: ? For nose- Mupirocin ointment: Please use a pea sized amount on a q-tip to apply inside your nose twice daily for five days prior to surgery. 5-7 days total if you are tested positive for MRSA. ? For mouth- Peridex therapy should be initiated for surgery prophylaxis 3-5 days prior surgery. Recommended use is twice daily oral rinsing for 30 seconds, morning and evening after toothbrushing. Usual dosage is 15ml (marked in cap) of undiluted Peridex. Please do not rinse with water or other mouthwashes, brush teeth or eat immediately after using Peridex. Peridex is not intended for ingestion and should be expectorated after rinsing. ? For body- Hibiclens body wash the night before and morning of surgery. If you are positive of MRSA, you would need shower daily with the Hibiclens body solution for 5 days total (you can get additional amount from any drug store). ? Pre-Op COVID TEST: it is ordered. You will be instructed to have this test completed 2-3 days prior to your surgery date. PLEASE make sure you complete this test to prevent any surgery delay or possible cancellation. If you have not receive call regarding the test, please call [phone]. Nutritional support/Ensure Drinks Instruction (Please continue eating your usual heart healthy diet): ? 2 protein shakes daily for 5 days before surgery Medications to take with small amount of fluid in the morning of surgery: ? Aspirin 81 mg ? Beta Millie (Metoprolol) ? Tylenol 1000 mg ? Lamictal 25 mg ? Primidone 50 mg If you have respiratory inhaler, please give yourself a treatment prior to come in If you are diabetic, please check you blood sugar prior to come in PLEASE COMPLETE THE SHOWER, MOUTH WASH, FINISH YOUR DRINK AND MEDICATIONS NO LATER THAN 5:30 AM, THANKS. Please call office: [phone] if you have additional questions, Thanks. Linda Winkler APRN.BULL BUCKER 07/24/21 Liset Ocampo APRN.ODALIS 08/01/2021 1:43 PM Signed No show to pre-op appointment- opened in error. Referring Provider: CLEMENT SWANSON [[id number]] Allergies A (more content not included)... Normal [facility] Mike 07-24-2021 CNPN Telephone (AGVASACC) -- RADHA BRENNAN ([id number]) 1955 M Date Time Provider Department 07/24/21 GREGORIO DOMINGUEZ During your visit today, we recorded the following information about you: Marques Curiel 07/24/2021 10:46 AM Signed LM for patient to call us back PATRICIA. We have to cancel his surgery since he did not show up for his appointment today. Gave him our number to call when he is able to. Allergies As of Date: 07/24/2021 Noted Allergy Reaction TUBERCULIN, PURIFIED PROTEIN DERI*06/25/2021 7 - Swelling VENOM-HONEY BEE 06/25/2021 7 - Swelling Date Reviewed: 07/24/2021 Reviewed by: Katherine Constantino RN - Fully Assessed Reason for Visit: Appointment [186] Cmt: appointment Prescriptions as of 07/24/2021 - metoprolol tartrate, short acting, (LOPRESSOR) 25 mg tablet Take 0.5 tablets by mouth one time only for 1 dose. Take am of surgery with your morning meds. DO NOT take Toprol XL ( metoprolol succinate) as well at this time. - acetaminophen (TYLENOL EXTRA STRENGTH) 500 mg tablet Take 2 tablets by mouth one time only for 1 dose. Take morning of surgery. - mupirocin (BACTROBAN) 2 % ointment Apply to affected area twice daily for 5 days. - Chlorhexidine Gluconate (PERIDEX) 0.12 % solution Use 15 mL as instructed twice daily for 5 days. Rinse around mouth for 30 seconds then expectorate - clopidogrel (PLAVIX) 75 mg tablet Take 75 mg by mouth once daily. - isosorbide mononitrate ER (IMDUR) 30 mg 24 hr tablet Take 30 mg by mouth once daily. - lamoTRIgine (LAMICTAL) 25 mg tablet Take 50 mg by mouth once daily. - aspirin, enteric coated (ASPIRIN, ENTERIC COATED) 81 mg EC tablet Take 81 mg by mouth once daily. - primidone (MYSOLINE) 50 mg tablet Take 50 mg by mouth twice daily. - atorvastatin (LIPITOR) 40 mg tablet Take 40 mg by mouth once daily. - metoprolol succinate ER (TOPROL XL) 25 mg 24 hr tablet Take 25 mg by mouth once daily. - nitroglycerin sublingual (NITROQUICK) 0.4 mg SL tablet Dissolve 1 tablet under the tongue every 5 minutes as needed for Chest Pain. May of three doses. Facility-Administered Medications as of 07/24/2021 - perflutren lipid microspheres 1.3 mL in NaCl (PF) 0.9% 10 mL injection (DEFINITY) - sodium chloride 0.9 % (flush) 10 mL (BD POSIFLUSH) Problem List As Of Date 07/24/2021 Noted Resolved Tobacco abuse [Z72.0] 05/12/2020 Screening for colon cancer [Z12.11] 05/12/2020 Seizures (HCC) [R56.9] 05/12/2020 Cerebrovascular accident (CVA) (HCC) [I63.9] 05/12/2020 Diarrhea [R19.7] 05/12/2020 LV dysfunction [I51.9] Atrial septal aneurysm [I25.3] Mixed hyperlipidemia [E78.2] Coronary artery disease involving catawba joy* Encounter Status:Closed by MARQUES CURIEL on 07/24/21 [facility] CNPN Telephone (AGVASACC) -- RADHA BRENNAN ([id number]) 1955 M Date Time Provider Department 07/24/21 GREGORIO DOMINGUEZ During your visit today, we recorded the following information about you: Warren Luciano 07/24/2021 1:29 PM Signed Mr. Brennan missed his preoperative instructions appt twice therefore 07/27/21 CABG needs to be reschedule to allow for this appt to take place. Left detailed message canceling surgery and requesting call back to reschedule. Allergies As of Date: 07/24/2021 Noted Allergy Reaction TUBERCULIN, PURIFIED PROTEIN DERI*06/25/2021 7 - Swelling VENOM-HONEY BEE 06/25/2021 7 - Swelling Date Reviewed: 07/24/2021 Reviewed by: Katherine Constantino RN - Fully Assessed Reason for Visit: Surgery Cancelled [9643] LMTCB [1226] Prescriptions as of 07/24/2021 - metoprolol tartrate, short acting, (LOPRESSOR) 25 mg tablet Take 0.5 tablets by mouth one time only for 1 dose. Take am of surgery with your morning meds. DO NOT take Toprol XL ( metoprolol succinate) as well at this time. - acetaminophen (TYLENOL EXTRA STRENGTH) 500 mg tablet Take 2 tablets by mouth one time only for 1 dose. Take morning of surgery. - mupirocin (BACTROBAN) 2 % ointment Apply to affected area twice daily for 5 days. - Chlorhexidine Gluconate (PERIDEX) 0.12 % solution Use 15 mL as instructed twice daily for 5 days. Rinse around mouth for 30 seconds then expectorate - clopidogrel (PLAVIX) 75 mg tablet Take 75 mg by mouth once daily. - isosorbide mononitrate ER (IMDUR) 30 mg 24 hr tablet Take 30 mg by mouth once daily. - lamoTRIgine (LAMICTAL) 25 mg tablet Take 50 mg by mouth once daily. - aspirin, enteric coated (ASPIRIN, ENTERIC COATED) 81 mg EC tablet Take 81 mg by mouth once daily. - primidone (MYSOLINE) 50 mg tablet Take 50 mg by mouth twice daily. - atorvastatin (LIPITOR) 40 mg tablet Take 40 mg by mouth once daily. - metoprolol succinate ER (TOPROL XL) 25 mg 24 hr tablet Take 25 mg by mouth once daily. - nitroglycerin sublingual (NITROQUICK) 0.4 mg SL tablet Dissolve 1 tablet under the tongue every 5 minutes as needed for Chest Pain. May of three doses. Facility-Administered Medications as of 07/24/2021 - perflutren lipid microspheres 1.3 mL in NaCl (PF) 0.9% 10 mL injection (DEFINITY) - sodium chloride 0.9 % (flush) 10 mL (BD POSIFLUSH) Problem List As Of Date 07/24/2021 Noted Resolved Tobacco abuse [Z72.0] 05/12/2020 Screening for colon cancer [Z12.11] 05/12/2020 Seizures (HCC) [R56.9] 05/12/2020 Cerebrovascular accident (CVA) (HCC) [I63.9] 05/12/2020 Diarrhea [R19.7] 05/12/2020 LV dysfunction [I51.9] Atrial septal aneurysm [I25.3] Mixed hyperlipidemia [E78.2] Coronary artery disease involving catawba joy* Encounter Status:Closed by WARREN LUCIANO on 07/24/21 Normal [facility] CTA CHEST (GATED) W IVCONon 07-23-2021 CTA CHEST (GATED) W IVCON * * *Final Report* * * DATE OF EXAM: Jul 23 2021 2:08PM [facility] – [place] 0125 - CTA CHEST (GATED) W IVCON / PROCEDURE REASON: multiple diagnoses * * * * Physician Interpretation * * * * Examination: CTA of the chest dated 07/23/2021 2:08 PM Comparison: None available. History: 65 year old Male with severe CAD here for surgical planning. Technique: Multi-detector CT technology was employed (Siemens Definition dual source scanner). Spiral imaging with retrospective gating was performed of the chest following the IV administration of contrast material. A low-osmolar contrast agent was used (90 cc of Omnipaque 350). CT Dose-Length Product (DLP): [address] Dose Reduction Employed: mAs-kVp adjusted based on patient size-age For optimization of anatomic evaluation, multiplanar reconstruction, maximum intensity projections, and advanced 3-D off-line postprocessing were performed on a dedicated stand-alone workstation by the interpreting physician. RESULT: Potential study limitations: None. CHEST: The chest wall is unremarkable. There is no significant adenopathy noted in the axillae, mediastinum, and mariluz. Calcified lymph nodes in the mediastinum and right hilum. The pericardium and pulmonary arteries appear normal. Lung windows reveal no acute abnormalities. Mild diffuse centrilobular emphysematous changes. There are a few, scattered calcified nodules present. There is no abnormal pulmonary parenchymal mass, infiltrate, or pleural effusion. The cardiac chambers demonstrate normal atrioventricular and ventriculoarterial concordance, and systemic and pulmonary venous return. The cardiac chamber sizes are normal. The coronary arteries have normal origins and courses. There are severe coronary calcifications identified, though this study was not optimized for coronary artery evaluation. VASCULAR WITH ADVANCED 3-D OFF-LINE POSTPROCESSING: Aortic valve morphology is trileaflet, and free from calcifications. The thoracic aorta is normal in course, caliber, and contour. There is no acute aortic pathology, such as dissection, intramural hematoma, or contained rupture. The arch vessel branching pattern is normal. The limited images of the upper abdomen reveal no abnormalities of the visualized organs. IMPRESSION: 1. Normal thoracic aorta. No acute aortic pathology identified. 2. Severe coronary artery calcifications. 3. Old granulomatous disease. Manager Validation: PSCB Transcribe Date/Time: Jul 23 2021 2:59P Dictated by : RYLAND LENTZ MD This examination was interpreted and the report reviewed and electronically signed by: RYLAND LENTZ MD on Jul 23 2021 4:21PM EST [id number] [facility] Mike 07-22-2021 ODALISN Telephone (AGCloudCrowdACC) -- RADHA BRENNAN ([id number]) 1955 M Date Time Provider Department 07/22/21 [facility]OR[facility]Z [facility] [place] During your visit today, we recorded the following information about you: Allergies As of Date: 07/22/2021 Noted Allergy Reaction TUBERCULIN, PURIFIED PROTEIN DERI*06/25/2021 7 - Swelling VENOM-HONEY BEE 06/25/2021 7 - Swelling Date Reviewed: 07/06/2021 Reviewed by: Krunal Mcdonald RT(R) - Fully Assessed Reason for Visit: Orders [681] Primary Visit Diagnosis: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 - isosorbide mononitrate ER (IMDUR) 30 mg 24 hr tablet Take 30 mg by mouth once daily. - lamoTRIgine (LAMICTAL) 25 mg tablet Take 50 mg by mouth once daily. - aspirin, enteric coated (ASPIRIN, ENTERIC COATED) 81 mg EC tablet Take 81 mg by mouth once daily. - primidone (MYSOLINE) 50 mg tablet Take 50 mg by mouth twice daily. - atorvastatin (LIPITOR) 40 mg tablet Take 40 mg by mouth once daily. - metoprolol succinate ER (TOPROL XL) 25 mg 24 hr tablet Take 25 mg by mouth once daily. - nitroglycerin sublingual (NITROQUICK) 0.4 mg SL tablet Dissolve 1 tablet under the tongue every 5 minutes as needed for Chest Pain. May of three doses. Facility-Administered Medications as of 07/22/2021 - perflutren lipid microspheres 1.3 mL in NaCl (PF) 0.9% 10 mL injection (DEFINITY) - sodium chloride 0.9 % (flush) 10 mL (BD POSIFLUSH) Problem List As Of Date 07/22/2021 Noted Resolved Tobacco abuse [Z72.0] 05/12/2020 Screening for colon cancer [Z12.11] 05/12/2020 Seizures (HCC) [R56.9] 05/12/2020 Cerebrovascular accident (CVA) (HCC) [I63.9] 05/12/2020 Diarrhea [R19.7] 05/12/2020 LV dysfunction [I51.9] Atrial septal aneurysm [I25.3] Mixed hyperlipidemia [E78.2] Coronary artery disease involving catawba joy* Encounter Status:Closed by LISET OCAMPO on 07/22/21 Normal [facility] CBC panel Auto (Bld)on 07-21 Erythrocyte distribution width (RBC) [Ratio] 12.6 % Normal 11.5-15.[address] [facility] Comment on above: Order Comment: Speci men Type: BLOOD SPECIMEN Ordering Facility: [facility] Address: [address] [place] [address] Performed By: #### T [id number] #### [employer] [facility] CLIA [id number] [address] Hematocrit (Bld) [Volume fraction] 43.5 % Normal 39.0-51.[address] [facility] Comment on above: Order Comment: Speci men Type: BLOOD SPECIMEN Ordering Facility: [facility] Address: [address] [place] [address] Performed By: #### T SCR30 #### [facility] CLIA [id number] [address] [place] Hemoglobin (Bld) [Mass/Vol] 14.7 g/dL Normal 13.0-17.[address] [facility] Comment on above: Order Comment: Speci men Type: BLOOD SPECIMEN Ordering Facility: [facility] Address: [address] [place] [address] Performed By: #### T SCR30 #### [facility] CLIA [id number] [address] [place] MCH (RBC) [Entitic mass] 32.8 pg Normal 26.0-34.[address] [facility] Comment on above: Order Comment: Speci men Type: BLOOD SPECIMEN Ordering Facility: [facility] Address: [address] [place] [address] Performed By: #### T SCR30 #### [facility] CLIA [id number] [address] [place] MCHC (RBC) [Mass/Vol] 33.8 g/dL Normal 30.5-36.0 [facility] Comment on above: Order Comment: Speci men Type: BLOOD SPECIMEN Ordering Facility: [facility] Address: [address] [place] [address] Performed By: #### T SCR30 #### [facility] [place] [id number] [address] [place] MCV (RBC) [Entitic vol] 97.1 fL Normal 80.0-100.[address] [facility] Comment on above: Order Comment: Speci men Type: BLOOD SPECIMEN Ordering Facility: [facility] Address: [address] [place] [address] Performed By: #### T SCR30 #### [facility] [place] [id number] [address] [place] Nucleated RBC (Bld) [#/Vol] 10*3/uL Normal <0.[address] [facility] Comment on above: Order Comment: Speci men Type: BLOOD SPECIMEN Ordering Facility: [facility] Address: [address] [place] [address] Performed By: #### T SCR30 #### [facility] [place] [id number] [address] [place] Platelet mean volume (Bld) [Entitic vol] 9.3 fL Normal 9.0-12.[address] [facility] Comment on above: Order Comment: Speci men Type: BLOOD SPECIMEN Ordering Facility: [facility] Address: [address] [place] [address] Performed By: #### T SCR30 #### [facility] [place] [id number] [address] [place] Platelets (Bld) [#/Vol] 316 10*3/uL Normal 150-[address] [facility] Comment on above: Order Comment: Speci men Type: BLOOD SPECIMEN Ordering Facility: [facility] Address: [address] [place] [address] Performed By: #### T SCR30 #### [facility] CLIA [id number] [address] RBC (Bld) [#/Vol] 4.48 10*6/uL Normal 4.20-6.00 [facility] Comment on above: Order Comment: Speci men Type: BLOOD SPECIMEN Ordering Facility: [facility] Address: [address] [place] [address] Performed By: #### T SCR30 #### [facility] CLIA [id number] [address] WBC (Bld) [#/Vol] 12.48 10*3/uL High 3.70-11.00 [facility] Comment on above: Order Comment: Speci men Type: BLOOD SPECIMEN Ordering Facility: [facility] Address: [address] [place] [address] Performed By: #### T SCR30 #### [facility] [place] [id number] [address] Mike 07-21-2021 ODALISN Telephone (AKSUR) -- RADHA BRENNAN ([id number]) 1955 M Date Time Provider Department 07/21/21 GREGORIO DOMINGUEZ During your visit today, we recorded the following information about you: RT Beverly(R) 07/21/2021 8:52 AM Signed PT: Radha Brennan MR# [id number] RESCHEDULED per Radiologist Dr. LENY RAMOS RADIOLOGIST. Pt needs a CTA GATED CHEST for PRE_OP OPEN HEART, Scan Cannot be done at [facility]. Please put new order for CTA GATED THORAX WITH CONTRAST IN, , HE IS SCHEDULED FOR July 23 PER RADIOLOGIST AT [facility]. Allergies As of Date: 07/21/2021 Noted Allergy Reaction TUBERCULIN, PURIFIED PROTEIN DERI*06/25/2021 7 - Swelling VENOM-HONEY BEE 06/25/2021 7 - Swelling Date Reviewed: 07/06/2021 Reviewed by: Krunal Mcdonald, RT(R) - Fully Assessed Reason for Visit: CT ORDER [Other] Prescriptions as of 09/08/2021 - metoprolol tartrate, short acting, (LOPRESSOR) 25 mg tablet Take 0.5 tablets by mouth one time only for 1 dose. Take am of surgery with your morning meds. DO NOT take Toprol XL ( metoprolol succinate) as well at this time. - clopidogrel (PLAVIX) 75 mg tablet Take 75 mg by mouth once daily. - isosorbide mononitrate ER (IMDUR) 30 mg 24 hr tablet Take 30 mg by mouth once daily. - lamoTRIgine (LAMICTAL) 25 mg tablet Take 50 mg by mouth once daily. - aspirin, enteric coated (ASPIRIN, ENTERIC COATED) 81 mg EC tablet Take 81 mg by mouth once daily. - primidone (MYSOLINE) 50 mg tablet Take 50 mg by mouth twice daily. - atorvastatin (LIPITOR) 40 mg tablet Take 40 mg by mouth once daily. - metoprolol succinate ER (TOPROL XL) 25 mg 24 hr tablet Take 25 mg by mouth once daily. - nitroglycerin sublingual (NITROQUICK) 0.4 mg SL tablet Dissolve 1 tablet under the tongue every 5 minutes as needed for Chest Pain. May of three doses. Facility-Administered Medications as of 09/08/2021 - perflutren lipid microspheres 1.3 mL in NaCl (PF) 0.9% 10 mL injection (DEFINITY) - sodium chloride 0.9 % (flush) 10 mL (BD POSIFLUSH) Problem List As Of Date 07/21/2021 Noted Resolved Tobacco abuse [Z72.0] 05/12/2020 Screening for colon cancer [Z12.11] 05/12/2020 Seizures (HCC) [R56.9] 05/12/2020 Cerebrovascular accident (CVA) (HCC) [I63.9] 05/12/2020 Diarrhea [R19.7] 05/12/2020 LV dysfunction [I51.9] Atrial septal aneurysm [I25.3] Mixed hyperlipidemia [E78.2] Coronary artery disease involving catawba joy* Encounter Status:Closed by WARREN LUCIANO on 09/08/21 Normal [facility] CONFIRM BLOOD TYPEon 022 ABO O Normal [facility] Comment on above: Order Comment: Speci men Type: BLOOD SPECIMEN Ordering Facility: [facility] Address: [address] [place] [address] Performed By: #### C ONABO #### [facility] CLIA [id number] [address] [place] Rh Nom (Bld) Positive Normal [facility] Comment on above: Order Comment: Speci men Type: BLOOD SPECIMEN Ordering Facility: [facility] Address: [address] [place] [address] Performed By: #### C ONABO #### [facility] CLIA [id number] 1 [place] [address] [place] Comprehensive metabolic 2000 panelon 07-21-2021 Albumin [Mass/Vol] 4.2 g/dL Normal 3.9-4.9 [facility] Comment on above: Order Comment: Speci men Type: BLOOD SPECIMEN Ordering Facility: [facility] Address: [address] [place] [address] Performed By: #### T SCR30 #### [facility] CLIA [id number] [address] [place] ALP [Catalytic activity/Vol] 105 U/L Normal 38-[address] [facility] Comment on above: Order Comment: Speci men Type: BLOOD SPECIMEN Ordering Facility: [facility] Address: [address] [place] [address] Performed By: #### T SCR30 #### [facility] CLIA [id number] [address] [place] ALT [Catalytic activity/Vol] 14 U/L Normal 10-[address] [facility] Comment on above: Order Comment: Speci men Type: BLOOD SPECIMEN Ordering Facility: [facility] Address: [address] [place] [address] Performed By: #### T SCR30 #### [facility] CLIA [id number] 1 [place] [address] [place] Anion gap [Moles/Vol] 9 mmol/L Normal 9-18 [facility] Comment on above: Order Comment: Speci men Type: BLOOD SPECIMEN Ordering Facility: [facility] Address: [address] [place] [address] Performed By: #### T SCR30 #### [facility] CLIA [id number] 1 [place] [address] [place] AST [Catalytic activity/Vol] 17 U/L Normal 14-[address] [facility] Comment on above: Order Comment: Speci men Type: BLOOD SPECIMEN Ordering Facility: [facility] Address: [address] [place] [address] Performed By: #### T SCR30 #### [facility] CLIA [id number] 1 [place] [address] [place] Bilirubin [Mass/Vol] mg/dL Low 0.2-1.3 [facility] Comment on above: Order Comment: Speci men Type: BLOOD SPECIMEN Ordering Facility: [facility] Address: [address] [place] [address] Performed By: #### T SCR30 #### [facility] CLIA [id number] 1 [place] [address] [place] Calcium [Mass/Vol] 8.8 mg/dL Normal 8.5-10.2 [facility] Comment on above: Order Comment: Speci men Type: BLOOD SPECIMEN Ordering Facility: [facility] Address: [address] [place] [address] Performed By: #### T SCR30 #### [facility] CLIA [id number] [address] [place] Chloride [Moles/Vol] 99 mmol/L Normal 97-105 [facility] Comment on above: Order Comment: Speci men Type: BLOOD SPECIMEN Ordering Facility: [facility] Address: [address] [place] [address] Performed By: #### T SCR30 #### [facility] CLIA [id number] 1 [place] [address] [place] CO2 [Moles/Vol] 30 mmol/L Normal 22-[address] [facility] Comment on above: Order Comment: Speci men Type: BLOOD SPECIMEN Ordering Facility: [facility] Address: [address] [place] [address] Performed By: #### T SCR30 #### [facility] CLIA [id number] [address] [place] Creatinine [Mass/Vol] 0.90 mg/dL Normal 0.73-1.22 [facility] Comment on above: Order Comment: Speci men Type: BLOOD SPECIMEN Ordering Facility: [facility] Address: [address] [place] [address] Performed By: #### T SCR30 #### [facility] CLIA [id number] [address] ESTIMATED GLOMERULAR FILTRATION RATE 94 mL/min/1.73m??? Normal >=[address] [facility] Comment on above: Order Comment: Speci men Type: BLOOD SPECIMEN Ordering Facility: [facility] Address: [address] [place] [address] Result Comment: Teena mated Glomerular Filtration Rate (eGFR) is calculated using the 2020 CKD-EPI creatinine equation. This equation utilizes serum creatinine, sex, and age as parameters. The creatinine assay has traceable calibration to isotope dilution-mass spectrometry. Refer to KDIGO guidelines for clinical interpretation. In patients with unstable renal function, e.g. those with acute kidney injury, the eGFR may not accurately reflect actual GFR. Performed By: #### T SCR30 #### [employer] [facility] CLIA [id number] 1 [place] [address] [place] Glucose [Mass/Vol] 98 mg/dL Normal 74-99 [facility] Comment on above: Order Comment: Anam perez Type: BLOOD SPECIMEN Ordering Facility: [facility] Address: [address] [place] [address] Result Comment: The [place] Diabetes Association (ADA) provides guidance for cutoff values for fasting glucose and random glucose. The ADA defines fasting as no caloric intake for at least 8 hours. Fasting plasma glucose results between 100 to 125 mg/dL indicate increased risk for diabetes (prediabetes). Fasting plasma glucose results greater than or equal to 126 mg/dL meet the criteria for diagnosis of diabetes. In the absence of unequivocal hyperglycemia, results should be confirmed by repeat testing. In a patient with classic symptoms of hyperglycemia or hyperglycemic crisis, random plasma glucose results greater than or equal to 200 mg/dL meet the criteria for diagnosis of diabetes. Reference: Standards of Medical Care in Diabetes 2016, [place] Diabetes Association. Diabetes Care. 2016.39(Suppl 1). Performed By: #### T SCR30 #### [facility] CLIA [id number] 1 [place] [address] [place] Potassium [Moles/Vol] 4.3 mmol/L Normal 3.7-5.1 [facility] Comment on above: Order Comment: Anam perez Type: BLOOD SPECIMEN Ordering Facility: [facility] Address: [address] [place] [address] Performed By: #### T SCR30 #### [facility] CLIA [id number] 1 [place] [address] [place] Protein [Mass/Vol] 6.7 g/dL Normal 6.3-8.0 [facility] Comment on above: Order Comment: Anam perez Type: BLOOD SPECIMEN Ordering Facility: [facility] Address: [address] [place] [address] Performed By: #### T SCR30 #### [facility] CLIA [id number] 1 [place] [address] [place] Sodium [Moles/Vol] 138 mmol/L Normal 136-144 [facility] Comment on above: Order Comment: Anam perez Type: BLOOD SPECIMEN Ordering Facility: [facility] Address: [address] [place] [address] Performed By: #### T SCR30 #### [facility] CLIA [id number] [address] Urea nitrogen [Mass/Vol] 18 mg/dL Normal 9-[address] [facility] Comment on above: Order Comment: Dereki men Type: BLOOD SPECIMEN Ordering Facility: [facility] Address: [address] [place] [address] Performed By: #### T SCR30 #### [facility] CLIA [id number] [address] HGB A1Con 07-21-2021 Average glucose Estimated from glycated hemoglobin (Bld) [Mass/Vol] 126 mg/dL Normal [facility] Comment on above: Order Comment: Anam men Type: BLOOD SPECIMEN Ordering Facility: [facility] Address: [address] [place] [address] Result Comment: eAG: (Estimated average glucose) is a calculated value from HgbA1c and is union contract representative of the average blood glucose level in the last 2-3 month period. Performed By: #### T SCR30 #### [facility] CLIA [id number] [address] HbA1c (Bld) [Mass fraction] 6.0 % High 4.3-5.[address] [facility] Comment on above: Order Comment: Derekamy perez Type: BLOOD SPECIMEN Ordering Facility: [facility] Address: [address] [place] [address] Result Comment: [place] Diabetes Association guidelines indicate that patients with HgbA1c in the range 5.7-6.4% are at increased risk for development of diabetes, and intervention by lifestyle modification may be beneficial. HgbA1c greater or equal to 6.5% is considered diagnostic of diabetes. Performed By: #### T SCR30 #### [facility] CLIA [id number] [address] [facility] Magnesium SerPl-mCncon 07-21 Magnesium [Mass/Vol] 2.0 mg/dL Normal 1.7-2.3 [facility] Comment on above: Order Comment: Specamy perez Type: BLOOD SPECIMEN Ordering Facility: [facility] Address: [address] [place] [address] Performed By: #### T SCR30 #### [facility] [place] [id number] [address] [place] [address] PT panel Coag (PPP)on 2021 INR Coag (PPP) [Relative time] 1.0 {INR} Normal 0.9-1.[address] [facility] Comment on above: Order Comment: Anam perez Type: BLOOD SPECIMEN Ordering Facility: [facility] Address: [address] [place] [address] Result Comment: Maggie min K Antagonist (VKA) Therapeutic Range: INR 2 to 3 (Target INR of 2.5) Note: For patients treated with VKA drugs, such as warfarin, the [place] [employer] 2012 Guideline recommends a therapeutic INR range of 2 to 3 (target INR of 2.5). This recommendation includes high-risk patients with antiphospholipid syndrome with previous arterial or venous thromboembolism, current-generation mechanical or bioprosthetic aortic heart valve replacement. Note: Patients with mechanical aortic valve replacement and additional risk factors for thromboembolic events (atrial fibrillation, previous thromboembolism, LV dysfunction, hypercoagulable conditions) or an older generation mechanical AVR (i.e., ball in-Cage) or any mechanical MVR should have a INR therapeutic range of 2.5 to 3.5 (target INR of 3). Shiloh GH, et al. Chest 2012, 141:7S-47S Jose Angel RA, et al. JACC 2017, 70: 252-289 Performed By: #### T SCR30 #### [facility] CLIA [id number] [address] OF [facility] PT Coag (PPP) [Time] 10.4 s Normal 9.7-13.0 [facility] Comment on above: Order Comment: Speci men Type: BLOOD SPECIMEN Ordering Facility: [facility] Address: [address] [place] [address] Performed By: #### T SCR30 #### [facility] CLIA [id number] [address] TSH SerPl-aCncon 07-21-2021 TSH Qn 3.680 m[IU]/L Normal 0.270-4.[address] [facility] Comment on above: Order Comment: Speci men Type: BLOOD SPECIMEN Ordering Facility: [facility] Address: [address] [place] [address] Performed By: #### T SCR30 #### [facility] CLIA [id number] [address] TYPE AND SCREEN,30 DAYon ABO O Normal [facility] Comment on above: Order Comment: Speci men Type: BLOOD SPECIMEN Ordering Facility: [facility] Address: [address] [place] [address] Performed By: #### T SCR30 #### [facility] CLIA [id number] [address] HISTORICAL AB SCR STATUS Negative Normal [facility] Comment on above: Order Comment: Speci men Type: BLOOD SPECIMEN Ordering Facility: [facility] Address: [address] [place] [address] Performed By: #### T SCR30 #### [facility] CLIA [id number] [address] Rh Nom (Bld) Positive Normal [facility] Comment on above: Order Comment: Speci men Type: BLOOD SPECIMEN Ordering Facility: [facility] Address: [address] [place] [address] Performed By: #### T SCR30 #### [facility] CLIA [id number] [address] SPIROMETRY BASELINE ONLYon 0 07-16-2021 DLCO (ml/min/mmHg) 20.97 ml/min/mmHg [facility] DLCO/VA (ml/min/mmHg/L) 2.48 ml/min/mmHg/L [facility] VTX84-09% PRE (L/S) 1.42 L/S [facility] FEV1 PRE (L) 3.42 L [facility] FEV1/FVC PRE (%) 0.60 % [facility] FRC Box (L) 6.23 L [facility] FVC PRE (L) 5.67 L [facility] PEF PRE (L/S) 7.07 L/S [facility] RV Box (L) 3.48 L [facility] RV/TLC Box (%) 38 % [facility] TLC Box (L) 9.14 L [facility] VA (L) 8.49 L [facility] CNPNon 07-06-2021 ODALISN Telephone (LEONOR) -- RADHA BRENNAN ([id number]) 1955 M Date Time Provider Department 07/06/21 GREGORIO DOMINGUEZ During your visit today, we recorded the following information about you: Warren Luciano 07/06/2021 2:21 PM Signed Phoned pt regarding future appts. Itinerary mailed to pt's home. 07/16/21 PFT's, Carotid US, CTA Chest @ [facility]. NPO 4 hours, water ok prior to CT scan Preadmission instructions and exam 07/20/21 1pm with Liset Ocampo CNP. Preoperative labs to be drawn on 07/20/21 while in town. No fasting required. Echocardiogram 07/21/21 9:40am [facility] COVID testing 07/24/21 11:30am @ [facility]. CABG 07/27/21 arrival time 6am procedure time 7:30am @ [facility]. Allergies As of Date: 07/06/2021 Noted Allergy Reaction TUBERCULIN, PURIFIED PROTEIN DERI*06/25/2021 7 - Swelling VENOM-HONEY BEE 06/25/2021 7 - Swelling Date Reviewed: 07/06/2021 Reviewed by: Krunal Mcdonald, RT(R) - Fully Assessed Reason for Visit: Schedule Surgery [1330] Prescriptions as of 07/06/2021 - clopidogrel (PLAVIX) 75 mg tablet Take 75 mg by mouth once daily. - isosorbide mononitrate ER (IMDUR) 30 mg 24 hr tablet Take 30 mg by mouth once daily. - lamoTRIgine (LAMICTAL) 25 mg tablet Take 50 mg by mouth once daily. - aspirin, enteric coated (ASPIRIN, ENTERIC COATED) 81 mg EC tablet Take 81 mg by mouth once daily. - primidone (MYSOLINE) 50 mg tablet Take 50 mg by mouth twice daily. - atorvastatin (LIPITOR) 40 mg tablet Take 40 mg by mouth once daily. - metoprolol succinate ER (TOPROL XL) 25 mg 24 hr tablet Take 25 mg by mouth once daily. - nitroglycerin sublingual (NITROQUICK) 0.4 mg SL tablet Dissolve 1 tablet under the tongue every 5 minutes as needed for Chest Pain. May of three doses. Facility-Administered Medications as of 07/06/2021 - perflutren lipid microspheres 1.3 mL in NaCl (PF) 0.9% 10 mL injection (DEFINITY) - sodium chloride 0.9 % (flush) 10 mL (BD POSIFLUSH) Problem List As Of Date 07/06/2021 Noted Resolved Tobacco abuse [Z72.0] 05/12/2020 Screening for colon cancer [Z12.11] 05/12/2020 Seizures (HCC) [R56.9] 05/12/2020 Cerebrovascular accident (CVA) (HCC) [I63.9] 05/12/2020 Diarrhea [R19.7] 05/12/2020 LV dysfunction [I51.9] Atrial septal aneurysm [I25.3] Mixed hyperlipidemia [E78.2] Coronary artery disease involving catawba joy* Encounter Status:Closed by WARREN LUCIANO on 07/06/21 Normal [facility] Absolute lymphocyte counton 06-29-2021 Lymphocytes Auto (Unsp spec) [#/Vol] 3.36 10*uL 0.83-4.51 [facility] Work Phone: Basophil percentageon 2021 Basophils/100 WBC (Bld) 0.4 % 0-1 [facility] Work Phone: Bilirubin [Mass/Vol] 0.70 mg/dL 0.20-1.00 [facility] Work Phone: Comment on above: For patients on eltr ombopag therapy, use of Dimension [place] TBIL is not recommended. Chloride [Moles/Vol] 103 mmol/L 98-107 [facility] Work Phone: Eosinophils/100 WBC (Bld) 8.7 % 0-5 [facility] Work Phone: Glucose [Mass/Vol] 111 mg/dL 74-106 [facility] Work Phone: Comment on above: Fasting Glucose resu lt from 100 to 125 mg/dL suggests IMPAIRED HOMEOSTASIS per A.D.A. criteria. Neutrophils (Bld) [#/Vol] 4.2 10*3/uL 2.0-7.7 [facility] Work Phone: Neutrophils/100 WBC (Bld) 45.8 % 47-70 [facility] Work Phone: Potassium [Moles/Vol] 3.7 mmol/L 3.5-5.1 [facility] Work Phone: Protein [Mass/Vol] 6.5 g/dL 6.4-8.2 [facility] Work Phone: Sodium [Moles/Vol] 139 mmol/L 136-145 [facility] Work Phone: WBC (Bld) [#/Vol] 9.2 10*3/uL 4.4-11.0 [facility] Work Phone: Blood erythrocytes count (nu mber/volume)on 06-29-2021 RBC (Bld) [#/Vol] 4.23 10*6/uL 4.6-6.2 [facility] Work Phone: Blood hemoglobin measurement (mass/volume)on 06-29-2021 Hemoglobin (Bld) [Mass/Vol] 13.7 g/dL 13.0-16.5 [facility] Work Phone: Blood lymphocytes/100 leukoc yteson 06-29-2021 Lymphocytes/100 WBC (Bld) 36.6 % 19-41 [facility] Work Phone: Blood monocytes/100 leukocyt eson 06-29-2021 Monocytes/100 WBC (Bld) 8.3 % 0-10 [facility] Work Phone: Blood platelet mean volumeon 06-29-2021 Platelet mean volume (Bld) [Entitic vol] 9.2 fL 6.2-12.0 [facility] Work Phone: Determination of erythrocyte mean corpuscular volume (MCV)on 06-29-2021 MCV (RBC) [Entitic vol] 95.5 fL 80-94 [facility] Work Phone: Hematocrit Auto (Bld) [Volum e fraction]on 06-29-2021 Hematocrit (Bld) [Volume fraction] 40.4 % 40-54 [facility] Work Phone: Laboratory - Chemistry and C hemistry - challengeon 06-29-2021 ALP [Catalytic activity/Vol] 92 U/L 45-117 [facility] Work Phone: ALT [Catalytic activity/Vol] 17 U/L 16-61 [facility] Work Phone: CO2 [Moles/Vol] 29.0 mmol/L 21.0-32.0 [facility] Work Phone: Globulin (S) [Mass/Vol] 3.2 g/dL 2.2-4.2 [facility] Work Phone: Urea nitrogen/Creatinine [Mass ratio] 9.4 mg/mg 10-20 [facility] Work Phone: Laboratory - Hematology and Cell countson 06-29-2021 Erythrocyte distribution width (RBC) [Entitic vol] 45.0 fL 35.1-43.9 [facility] Work Phone: Erythrocyte distribution width (RBC) [Ratio] 12.7 % 11.6-14.6 [facility] Work Phone: Immature granulocytes/100 WBC (Bld) 0.200 % 0.0-0.9 [facility] Work Phone: Comment on above: IG% - Immature Granu locytes (promyelocytes, myelocytes and metamyelocytes) > 1% indicates that a LEFT SHIFT is Present. MCH (RBC) [Entitic mass] 32.4 pg 27.0-32.0 [facility] Work Phone: Nucleated RBC/100 WBC (Bld) [Ratio] 0 % 0-5 [facility] Work Phone: MCHC Auto (RBC) [Mass/Vol]on 06-29-2021 MCHC (RBC) [Mass/Vol] 33.9 g/dL 32-36 [facility] Work Phone: No Panel Informationon 06-29 Estimated Creatinine Clearance Calc 61.13 ml/min [facility] Work Phone: Estimated GFR (MDRD) Amer 90 mL/min >60 [facility] Work Phone: Comment on above: GFR Calc Estimated GFR (MDRD) Non-Af Amer 74 mL/min >60 [facility] Work Phone: Comment on above: Non- GFR Calc Troponin I High Sensitivity < 3 pg/mL 3.0-78.0 [facility] Work Phone: Comment on above: Please Note: New Renay t Units and Gender Specific Reference Ranges. For more information see Policy Stat Procedure [place] High Sensitivity Troponin (TNIH) and attachments. Platelets bldon 06-29-2021 Platelets (Bld) [#/Vol] 289 10*3/uL 150-450 [facility] Work Phone: Serum or plasma albumin sadi urement (mass/volume)on 06-29-2021 Albumin [Mass/Vol] 3.3 g/dL 3.2-5.0 [facility] Work Phone: Serum or plasma albumin/glob ulin mass ratioon 06-29-2021 Albumin/Globulin [Mass ratio] 1.0 {ratio} 0.9-2.4 [facility] Work Phone: Serum or plasma calcium sadi urement (mass/volume)on 06-29-2021 Calcium [Mass/Vol] 8.4 mg/dL 8.5-10.1 [facility] Work Phone: Serum or plasma creatinine m easurement (mass/volume)on 06-29-2021 Creatinine [Mass/Vol] 1.06 mg/dL 0.70-1.30 [facility] Work Phone: Comment on above: The validity of the calculated GFR & GFRAA in patients over 70 years has not been determined. Clinical correlation is essential. Serum or plasma urea nitroge n measurement (mass/volume)on 06-29-2021 Urea nitrogen [Mass/Vol] 10 mg/dL 7-18 [facility] Work Phone: Thin prep Papanicolaou smear with manual screeningon 06-29-2021 Thin prep Papanicolaou smear with manual screening 11 U/L 15-37 [facility] Work Phone: Thin prep Papanicolaou smear with manual screening 7 5-15 [facility] Work Phone: CNOVon 06-25-2021 CNOV Office Visit (CR CC) -- RADHA BRENNAN ([id number]) 1955 M Date Time Provider Department 06/25/21 10:00 AM GREGORIO DOMINGUEZ During your visit today, we recorded the following information about you: Pulse Respiration Blood pressure Weight 68/minute 18/minute 112/70 62.9 kg Height 1.74 m Soraya Flores LPN 06/25/2021 11:01 AM Signed CARDIAC REHAB 5 METER WALK TEST SERVICE DATE: 06/25/2021 SERVICE TIME: 1020 ASSESSMENT: 1. 4.94 sec 2. 4.66 sec 3. 4.60 sec SIGNATURE: Soraya Flores LPN PATIENT NAME: Radha Brennan DATE: June 25, 2021 TIME: 10:58 AM PAGER/CONTACT #: [phone] Forrest Lott APRN.ODALIS 06/25/2021 11:58 AM Signed [facility] Adult Cardiac Surgery Database Version 4.20 RISK SCORES Procedure: Isolated CAB Risk of Mortality: 1.130% Renal Failure: 0.623% Permanent Stroke: 1.195% Prolonged Ventilation: 6.860% DSW Infection: 0.146% Reoperation: 3.841% Morbidity or Mortality: 10.974% Short Length of Stay: 50.020% Long Length of Stay: 4.336% YEMI Henry MD 06/25/2021 11:58 AM Signed CARDIOTHORACIC SURGERY CONSULT / HANDP SERVICE DATE: 06/25/2021 SERVICE TIME: 11:45 AM Subjective PRIMARY SERVICE: Cardiothoracic Surgery CHIEF COMPLAINT: Symptomatic severe multivessel coronary artery disease HPI: This is a 65 year old man referred evaluation of symptomatic severe multivessel coronary artery disease and for consideration of bypass surgery. He has history of coronary artery disease. He underwent stenting with drug-eluting stents to the left anterior descending artery and second diagonal branch 2017 after presenting with anginal symptoms. He had a good result with this. Now experiencing exertional and nonexertional episodes of chest discomfort. He continues to work and is physically active. He may have some shortness of breath with this appears to be chronic in nature. Repeat left heart catheterization shows the following: Ejection fraction 65% by left ventriculography EDP 18 mmHg Left main normal LAD proximal 75% lesion before origin of stent Mid LAD stent intact Diagonal 1 ostial subtotal occlusion Diagonal 2 patent stent Circumflex artery normal Right coronary mild luminal irregularities An echo performed in 2018 showed largely well preserved left ventricular function with segmental dysfunction in the mid anterior, mid lateral, mid anteroseptal, apical and lateral apical areas with hypokinesia. There was thickening of the anterior leaf of the mitral valve and mild mitral annular calcification without valve dysfunction. Risk factors for coronary disease include ongoing and prolonged tobacco use (1.5 packs of series per day, started age 5). He has hyperlipidemia. Not diabetic. His other vascular issues. Has had previous stroke. MRI in 2019 showed mild cerebral atrophy; events of chronic white matter ischemic changes; previous watershed infarct in the right posterior parietal lobe. CT scan demonstrated stable posterior MCA territory infarction in 2018. CT also demonstrated normal right common carotid artery; normal right internal carotid artery; normal left common carotid artery; normal left internal carotid artery; suspicious for 50% lesions of the origin of bilateral subclavian arteries. Lung function test from 2018 demonstrated mild large airways obstructive ventilatory defect. 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 (HCC) - 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 (HCC) - LV dysfunction mild - Mixed hyperlipidemia - Seizure (HCC) - Tobacco use disorder PAST SURGICAL HISTORY Procedure Laterality Date - LUMBAR PUNCTURE - OTHER 2018 ptca ZOLTAN to mid LAF and second diagonal - PAST SURGICAL HISTORY OF lymph node resection FAMILY HISTORY Problem Relation Age of Onset - Heart Attack Mother - Heart Attack Brother Social History Tobacco Use - Smoking status: Current Every Day Smoker Packs/day: 1.50 Years: 61.00 Pack years: 91.50 Types: Cigarettes Last attempt to quit: 04/1949 Years since quittin.2 - Smokeless tobacco: Never Used Substance Use Topics - Alcohol use: Yes Comment: 0-2 drinks per day - Drug use: Not on file (Not in a hospital admission) clopidogrel (PLAVIX) 75 mg tablet, Take 75 mg by mouth once daily. isosorbide mononitrate ER (IMDUR) 30 mg 24 hr tablet, Take 30 mg by mouth once daily. lamoTRIgine (LAMICTAL) 25 mg tablet, Take 50 mg by mouth once daily. aspirin, enteric coated (ASPIRIN, ENTERIC COATED) 81 mg EC tablet, Take 81 mg by mouth once daily. primidone (MYSOLINE) 50 mg tablet, Take 50 mg by mouth twi (more content not included)... Normal [facility] 06-25-2021 [facility] Telephone (AGVASACC) -- BRENNANRADHA GORMAN ([id number]) 1955 M Date Time Provider Department 06/25/21 GREGORIO DOMINGUEZ [facility] During your visit today, we recorded the following information about you: Forrest Lott APRN.CNP 06/26/2021 2:26 PM Addendum Warren Luciano 06/30/2021 1:28 PM Signed Addended by: WARREN LUCIANO on: 06/30/2021 01:28 PM Modules accepted: Orders, SmartSet Forrest Lott APRN.CNP 06/30/2021 3:14 PM Signed Addended by: FORREST LOTT on: 06/30/2021 03:14 PM Modules accepted: Orders Allergies As of Date: 06/25/2021 Noted Allergy Reaction TUBERCULIN, PURIFIED PROTEIN DERI*06/25/2021 7 - Swelling VENOM-HONEY BEE 06/25/2021 7 - Swelling Date Reviewed: 06/25/2021 Reviewed by: Soraya Flores LPN - Fully Assessed Reason for Visit: Orders [681] Primary Visit Diagnosis: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) [I25.118] Other Visit Diagnoses:Preoperative testing [Z01.818] 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] Cerebrovascular accident (CVA), unspecified mechanism (HCC) [I63.9] Order(s):SURGICAL REQUEST - ELECTIVE (11/2019) [2704819] Order #: [id number]: 1 CBC [SQCBC] Order #: [id number] FUTURE COMP METABOLIC PANEL [SQCMP] Order #: [id number] FUTURE PROTHROMBIN TIME/PT [SQPT] Order #: [id number] FUTURE PRE-PROCEDURE AND PRE-OPERATIVE COVID [SQPOCOVD] Order #: [id number] FUTURE TYPE AND SCREEN,30 DAY [GQZURT24] Order #: [id number] FUTURE HGB A1C [MKXTP2V] Order #: [id number] FUTURE MAGNESIUM BLD [SQMG1] Order #: [id number] FUTURE TSH BLD [SQTSH] Order #: [id number] FUTURE UA WITH CULTURE IF INDICATED [SQUACII] Order #: [id number] FUTURE CONFIRM BLOOD TYPE [SQCONABO] Order #: [id number] FUTURE Prescriptions as of 06/30/2021 - clopidogrel (PLAVIX) 75 mg tablet Take 75 mg by mouth once daily. - isosorbide mononitrate ER (IMDUR) 30 mg 24 hr tablet Take 30 mg by mouth once daily. - lamoTRIgine (LAMICTAL) 25 mg tablet Take 50 mg by mouth once daily. - aspirin, enteric coated (ASPIRIN, ENTERIC COATED) 81 mg EC tablet Take 81 mg by mouth once daily. - primidone (MYSOLINE) 50 mg tablet Take 50 mg by mouth twice daily. - atorvastatin (LIPITOR) 40 mg tablet Take 40 mg by mouth once daily. - metoprolol succinate ER (TOPROL XL) 25 mg 24 hr tablet Take 25 mg by mouth once daily. - nitroglycerin sublingual (NITROQUICK) 0.4 mg SL tablet Dissolve 1 tablet under the tongue every 5 minutes as needed for Chest Pain. August of three doses. Facility-Administered Medications as of 06/30/2021 - perflutren lipid microspheres 1.3 mL in NaCl (PF) 0.9% 10 mL injection (DEFINITY) - sodium chloride 0.9 % (flush) 10 mL (BD POSIFLUSH) Problem List As Of Date 06/25/2021 Noted Resolved Tobacco abuse [Z72.0] 05/12/2020 Screening for colon cancer [Z12.11] 05/12/2020 Seizures (HCC) [R56.9] 05/12/2020 Cerebrovascular accident (CVA) (HCC) [I63.9] 05/12/2020 Diarrhea [R19.7] 05/12/2020 LV dysfunction [I51.9] Atrial septal aneurysm [I25.3] Mixed hyperlipidemia [E78.2] Coronary artery disease involving c[place]ba joy* Encounter Status:Closed by FORREST LOTT on 06/26/21 [facility] CNPNon 06-03-2021 CNPN Telephone (AGVASACC) -- RADHA BRENNAN ([id number]) 1955 M Date Time Provider Department 06/03/21 GREGORIO DOMINGUEZ [facility] During your visit today, we recorded the following information about you: Vero Ha 06/03/2021 3:41 PM Signed LMOM to schedule with Dr Dominguez New Patient Referral from Sophia Madison for CAD Allergies As of Date: 06/03/2021 (No Known Allergies) Date Reviewed: 05/12/2020 Reviewed by: Kojo Loco LPN - Fully Assessed Reason for Visit: Appointment [186] Prescriptions as of 06/03/2021 - nitroglycerin sublingual (NITROQUICK) 0.4 mg SL tablet Dissolve 1 tablet under the tongue every 5 minutes as needed for Chest Pain. August of three doses. Problem List As Of Date 06/03/2021 Noted Resolved Tobacco abuse [Z72.0] 05/12/2020 Screening for colon cancer [Z12.11] 05/12/2020 Seizures (HCC) [R56.9] 05/12/2020 Cerebrovascular accident (CVA) (HCC) [I63.9] 05/12/2020 Diarrhea [R19.7] 05/12/2020 LV dysfunction [I51.9] Atrial septal aneurysm [I25.3] Mixed hyperlipidemia [E78.2] Coronary artery disease involving catawba joy* Encounter Status:Closed by VERO HA on 06/03/21 [facility] Absolute lymphocyte counton 04-17-2021 Lymphocytes Auto (Unsp spec) [#/Vol] 3.22 10*3/uL 0.83-4.51 [facility] Work Phone: Basophil percentageon 2021 Basophils/100 WBC (Bld) 0.7 % 0-1 [facility] Work Phone: Chloride [Moles/Vol] 102 mmol/L 98-107 [facility] Work Phone: Eosinophils/100 WBC (Bld) 4.7 % 0-5 [facility] Work Phone: [phone] Glucose [Mass/Vol] 122 mg/dL 74-106 [facility] Work Phone: Comment on above: Fasting Glucose resu lt from 100 to 125 mg/dL suggests IMPAIRED HOMEOSTASIS per A.D.A. criteria. Neutrophils (Bld) [#/Vol] 4.7 10*3/uL 2.0-7.7 [facility] Work Phone: Neutrophils/100 WBC (Bld) 51.5 % 47-70 [facility] Work Phone: Potassium [Moles/Vol] 4.1 mmol/L 3.5-5.1 [facility] Work Phone: [phone] Sodium [Moles/Vol] 137 mmol/L 136-145 [facility] Work Phone: WBC (Bld) [#/Vol] 9.1 10*3/uL 4.4-11.0 [facility] Work Phone: Blood erythrocytes count (nu mber/volume)on 04-17-2021 RBC (Bld) [#/Vol] 4.38 10*6/uL 4.6-6.2 [facility] Work Phone: Blood hemoglobin measurement (mass/volume)on 04-17-2021 Hemoglobin (Bld) [Mass/Vol] 14.1 g/dL 13.0-16.5 [facility] Work Phone: [phone] Blood lymphocytes/100 leukoc yteson 04-17-2021 Lymphocytes/100 WBC (Bld) 35.3 % 19-41 [facility] Work Phone: [phone] Blood monocytes/100 leukocyt eson 04-17-2021 Monocytes/100 WBC (Bld) 7.6 % 0-10 [facility] Work Phone: Blood platelet mean volumeon 04-17-2021 Platelet mean volume (Bld) [Entitic vol] 9.1 fL 6.2-12.0 [facility] Work Phone: Determination of erythrocyte mean corpuscular volume (MCV)on 04-17-2021 MCV (RBC) [Entitic vol] 97.5 fL 80-94 [facility] Work Phone: Hematocrit Auto (Bld) [Volum e fraction]on 04-17-2021 Hematocrit (Bld) [Volume fraction] 42.7 % 40-54 [facility] Work Phone: INR in Blood by Coagulation assayon 04-17-2021 INR Coag (Bld) [Relative time] 1.1 {INR} [facility] Work Phone: Laboratory - Chemistry and C hemistry - challengeon 04-17-2021 CO2 [Moles/Vol] 31.0 mmol/L 21.0-32.0 [facility] Work Phone: Urea nitrogen/Creatinine [Mass ratio] 15.5 mg/mg 10-20 [facility] Work Phone: Laboratory - Coagulationon 0 04-17-2021 aPTT Coag (Bld) [Time] 30.5 s 24.1-36.2 [facility] Work Phone: PT Coag (PPP) [Time] 13.3 s 11.7-14.9 [facility] Work Phone: Laboratory - Hematology and Cell countson 04-17-2021 Erythrocyte distribution width (RBC) [Entitic vol] 46.0 fL 35.1-43.9 [facility] Work Phone: Erythrocyte distribution width (RBC) [Ratio] 12.8 % 11.6-14.6 [facility] Work Phone: Immature granulocytes/100 WBC (Bld) 0.200 % 0.0-0.9 [facility] Work Phone: Comment on above: IG% - Immature Granu locytes (promyelocytes, myelocytes and metamyelocytes) > 1% indicates that a LEFT SHIFT is Present. MCH (RBC) [Entitic mass] 32.2 pg 27.0-32.0 [facility] Work Phone: Nucleated RBC/100 WBC (Bld) [Ratio] 0 % 0-5 [facility] Work Phone: MCHC Auto (RBC) [Mass/Vol]on 04-17-2021 MCHC (RBC) [Mass/Vol] 33.0 g/dL 32-36 [facility] Work Phone: No Panel Informationon 04-17 Estimated GFR (MDRD) Amer 93 mL/min >60 [facility] Work Phone: Comment on above: GFR Calc Estimated GFR (MDRD) Non-Af Amer 77 mL/min >60 [facility] Work Phone: Comment on above: Non- GFR Calc Platelets bldon 04-17-2021 Platelets (Bld) [#/Vol] 328 10*3/uL 150-450 [facility] Work Phone: Serum or plasma calcium sadi urement (mass/volume)on 04-17-2021 Calcium [Mass/Vol] 8.2 mg/dL 8.5-10.1 [facility] Work Phone: Serum or plasma creatinine m easurement (mass/volume)on 04-17-2021 Creatinine [Mass/Vol] 1.03 mg/dL 0.70-1.30 [facility] Work Phone: Comment on above: The validity of the calculated GFR & GFRAA in patients over 70 years has not been determined. Clinical correlation is essential. Serum or plasma urea nitroge n measurement (mass/volume)on 04-17-2021 Urea nitrogen [Mass/Vol] 16 mg/dL 7-18 [facility] Work Phone: Thin prep Papanicolaou smear with manual screeningon 04-17-2021 Thin prep Papanicolaou smear with manual screening 4 5-15 [facility] Work Phone: VAS LAB Carotid Artery Dupl ex Ultrasounon 06-02-2017 VAS LAB Carotid Artery Duplex Ultrasoun [facility], [address] [place] [address] and Vascular Lab Report Carotid Artery Duplex Ultrasound Patient Name: TAHIR DC FREEMAN Reading Physician: [id number] Merritt MDStudy Date: 06/02/2017 Referring Physician: Jose Antonio Mcgee MDMRN/PID: [id number] PCP:Accession/Order#: [id number] CC Report to:Date of : 1955 Technologist: Sophia YORKTGender: Maria M Technologist 2:Admission Status: Outpatient Location Performed: [facility] Diagnosis/ICD: R09.89-Other specified symptoms and signs involving the circulatory and respiratory systemsProcedure/CPT: 97908 Cerebrovacular Carotid Duplex scan complete CONCLUSIONS:Right Carotid: Findings are consistent with less than 50% stenosis of the right ICA. Enlarged lymph node noted: 25.8 x 8.3 mm. Has a history of infected lymph node removal. The right vertebral artery is patent with antegrade flow.Left Carotid: Findings are consistent with less than 50% stenosis of the left ICA. The left vertebral artery is patent with antegrade flow. Imaging & Doppler Findings:Right Plaque Morph: The mid right common carotid artery demonstrates intimal thickening plaque. The distal right common carotid artery demonstrates intimal thickening plaque.Left Plaque Morph: The distal left common carotid artery demonstrates intimal thickening plaque. Right Left PSV EDV PSV [id number] cm/s CCA P 94 cm/s69 cm/s CCA D 76 cm/s68 cm/s 15 cm/s ICA P 28 cm/s 9 cm/s91 cm/s 36 cm/s ICA M 73 cm/s 28 cm/s89 cm/s 35 cm/s ICA D 62 cm/s 26 cm/s50 cm/s ECA 55 cm/s75 cm/s 23 cm/s Vertebral 42 cm/s 13 cm/s110 cm/s Subclavian 125 cm/s Right LeftICA/CCA Ratio 1.0 0.4 65030 Jackelyn Merritt MD Final Normal [facility] MISCELLANEOUS TESTon 018 MISCELLANEOUS SEE BELOW Normal [facility] Comment on above: Result Comment: TEST RESULT UNITS REFERENCE RANGEACE, CSF HIGH 2.7 U/L 0.0 - 2.5 This test was developed and its performance characteristicsdetermined by [employer]. The U.S. Food and DrugAdministration has not approved or cleared this test;however, FDA clearance or approval is not currentlyrequired for clinical use. The results are not intended bijan used as the sole means for clinical diagnosis or patientmanagement decisions.Performed by [facility],[address] [place] [address] thf.Delivery Agent, Sumeet Nichols MD - Lab. DirectorTest Performed by:[facility] [place] [address] Performed By: #### M G ####[facility] [place] [address] CRYPTOCOCCAL AG, QUALon 04-05 CRYPTOCOCCAL AG, QUAL Negative Normal Negative [facility] Comment on above: Performed By: #### M G ####[facility] [place] [address] CBC AND DIFFERENTIALon 04-30 % AUTOMATED IMMATURE GRAN 0.3 % Normal 0.0 - 0.9 [facility] Comment on above: Result Comment: Perc ent differential counts (%) should be interpreted in the context of the absolute cell counts (cells/L). Performed By: #### C OAGS ####[facility] [place] [address] % NEUTROPHIL 57.8 % Normal 40.0 - 80.0 [facility] Comment on above: Performed By: #### C OAGS ####[facility] [place] [address] Basophils/100 WBC Auto (Bld) 0.6 % Normal 0.0 - 2.0 [facility] Comment on above: Performed By: #### C OAGS ####[facility] [place] [address] Basophils/100 WBC Auto (Bld) 0.04 x10E9/L Normal 0.00 - 0.10 [facility] Comment on above: Performed By: #### C OAGS ####[facility] [place] [address] Eosinophils 0.39 10*3/uL Normal 0.00 - 0.70 [facility] Comment on above: Performed By: #### C OAGS ####[facility] [place] [address] Eosinophils/100 leukocytes 6.0 % Normal 0.0 - 6.0 [facility] Comment on above: Performed By: #### C OAGS ####[facility] [place] [address] Erythrocyte distribution width Auto Ratio (RBC) 13.0 % Normal 11.5 - 14.5 [facility] Comment on above: Performed By: #### C OAGS ####[facility] [place] [address] Erythrocytes (RBC) 4.55 x10E12/L Normal 4.50 - 5.90 [facility] Comment on above: Performed By: #### C OAGS ####[facility] [place] [address] Hematocrit (HCT) 41.7 % Normal 41.0 - 52.0 [facility] Comment on above: Performed By: #### C OAGS ####[facility] [place] [address] Hemoglobin mass conc (Bld) 14.1 g/dL Normal 13.5 - 17.5 [facility] Comment on above: Performed By: #### C OAGS ####[facility] [place] [address] Lymphocytes 1.68 10*3/uL Normal 1.20 - 4.80 [facility] Comment on above: Performed By: #### C OAGS ####[facility] [place] [address] Lymphocytes/100 leukocytes 25.9 % Normal 13.0 - 44.0 [facility] Comment on above: Performed By: #### C OAGS ####[facility] [place] [address] MCHC mass conc (RBC) 33.8 g/dL Normal 32.0 - 36.0 [facility] Comment on above: Performed By: #### C OAGS ####[facility] [place] [address] MCV 92 fL Normal 80 - 100 [facility] Comment on above: Performed By: #### C OAGS ####[facility] [place] [address] Monocytes 0.61 10*3/uL Normal 0.10 - 1.00 [facility] Comment on above: Performed By: #### C OAGS ####[facility] [place] [address] Monocytes/100 leukocytes 9.4 % Normal 2.0 - 10.0 [facility] Comment on above: Performed By: #### C OAGS ####[facility] [place] [address] Neutrophils 3.75 10*3/uL Normal 1.20 - 7.70 [facility] Comment on above: Performed By: #### C OAGS ####[facility] [place] [address] Nucleated erythrocytes 0.0 /100 WBC Normal 0.0-0.0 [facility] Comment on above: Performed By: #### C OAGS ####[facility] [place] [address] Platelets 261 10*3/uL Normal 150 - 450 [facility] Comment on above: Performed By: #### C OAGS ####[facility] [place] [address] WBC (Leukocytes) 6.5 10*3/uL Normal 4.4 - 11.3 [facility] Comment on above: Performed By: #### C OAGS ####[facility] [place] [address] Discharge Summaryon 04-30-19 18 Discharge Summary Send Summary:Dischar ge Summary Providers:Provider Role Provider Name? Referring Joe Rey? Primary Unknown, Pcp? Attending Joe Rey ANote Recipients: Joe Rey, Unknown, Pcp, QUINN NARANJO ANTHONY JOHNDischarge:Summary:Admi ssion Date: .27-Apr-2017 02:11:00Discharge Date: [id number] Physician at Discharge: Joe Rey AAdmission Reason: Seizure, AMS(1)Final Discharge Diagnoses: Remote history of stroke, Seizure,Procedures: Date: 27-Apr-2017 10:18:00Procedure Name: Lumbar punctureCondition at Discharge: SatisfactoryDisposition at Discharge: .HomeVital Signs: T P R BP [id number] 37 66 16 123/69 95%Date/Time 04/30 6:40 04/30 6:40 04/30 6:40 04/30 6:40 04/30 6:40Range (36.2C - 37C ) (66 - 77 ) (14 - 18 ) (122 - 135 )/ (69- 83 ) (94% -97% )Highest temp of 37 C was recorded at 04/30 6:40Physical Exam:Constitutional: NAD, sitting up in bedEyes: PERRL, EOMI, no scleral injectionHead/Neck: Mild increased neck tone, b/l tenderness to palpation paraspinally,normal ROMRespiratory/Thorax: CTAB, no w/r/rCardiovascular: RRR, no m/r/gNeurological: Awake, AANDOx3, NAD, no hypermotor activity this morning. Answersquestions and follows commands appropriately.Motor: 5/5 in BUE/BLE, tremor in BUEs resolvedSensation intact to light touchPsychological: Appropriate mood and affectHospital Course:Mr. Radha Brennan is a 61 yo man who presented with acute onset AMS.Reportedly, he began hallucinating at work, saying look at the horses. Hisfriend had him eat some food and then he fell onto the floor. He was taken toOSH; CT head was negative for acute pathology but showed probable remote MCAinfarct. CXR unremarkable. EKG with sinus tach and incomplete RBBB and ageindeterminate septal infarct. Observed to have RLE tremors. Then had 2 minGTC with urinary incontinence and postictal state, BP 210/76. Terminated withIV Ativan and given 1g keppra IV. Exam on admission complicated by agitationbut appeared nonfocal. MRI brain was severely motion degraded but demonstratedold right posterior infarct; patient was unaware of any history of stroke andwas not on any medication such as aspirin or a statin. Routine EEG showedstructural right sided lesion consistent with known encephalomalacia, but noseizures or epileptiform discharges seen. ID was consulted, low concern forinfectious process, antibiotics (vancomycin and ceftriaxone) and acyclovir werediscontinued. Pleocytosis in CSF likely 2/2 seizure. Patient has greatimprovement clinically. By the day of discharge he was vitally stable, fullyalert and oriented with no focal neurological deficits, and without anyabnormalities on his lab work; patient has had no recurrence of seizure. Hewill be discharged with levetiracetam and was instructed about safety measuresafter a seizure (no driving, no baths, no climbing heights, etc.). He willfollow up in general neurology clinic. He was also discharged with aspirin 81mg daily and a statin; echocardiography revealed atrial septal aneurysm withoutPFO, EF of 50% (cardiology felt that ASA did not warrant further workup).Since he has radiographic evidence of remote stroke but has never been followedor on any risk factor reduction medications, he will follow up with Dr. Pollack an outpatient.Discharge Information:and Continuing Care:Discharge Instructions:Activity: May shower.. No baths May not drive until follow-up visit. with General Neurology clears youto drive Pt was instructed to not to drive, not to use power tools or operateheavy machinery, should not be on ladders and should not swim. The patientshould use the shower and not the bath. Likewise, they should refrain from anyactivity which could result in injury to themselves or others if they had aseizure or lost consciousness. These restrictions should continue for at least6 months or as instructed by a doctor to do otherwise. The patient was informedthat these restrictions would be documented in the medical record.Nutrition/Diet: resume normal dietFollow Up Appointments:Follow-Up Appointment 01: Physician/Dept/Service: General Neurology Clinic - Dr. Galaviz Reason for Referral: Seizure Scheduled Date/Time: 15-Jun-2017 13:00 Location: Neurology Clinic, 5th [facility], [id number] [place] [address] [phone] Appointment 02: Physician/Dept/Service: Dr. Jose Antonio Mcgee - Neurology/Stroke Reason for Referral: Prior Stroke Scheduled Date/Time: 02-Jun-2017 09:00 Location: Neurology Clinic, 5th [facility], [address] [place] [address] discharge Medications: Home Medication aspirin 81 mg oral tablet, chewable - 1 tab(s) orally once a day levETIRAcetam 500 mg oral tablet - 1 tab(s) orally 2 times a day atorvastatin 40 mg oral tablet - 1 tab(s) orally once a day thiamine 100 mg oral tablet - 1 tab(s) orally once a day PRN Medicationacetaminophen 325 mg oral tablet - 2 tab(s) orally 3 to 4 times a day, AsNeeded -Pain - Mild (1-3)Issues to Discuss at Follow-up / Goals for Continuing Care:#Seizure- Likely related to structural lesion in setting of remote stroke history- No recurrence of seizure, no epileptiform activity on EEG after being loadedand maintained on Keppra- Patient will be discharged with levetiracetam 500 mg BID- Instructed on seizure precautions/safety measures, informed of importance ofmedication compliance and not missing doses- F/u with Neurology Resident Clinic (Dr. Marlo Galaviz)#Remote History of Stroke- Previously undiagnosed- Started on ASA 81 mg, atorvastatin 40 mg daily- Echocardiogram with EF 50%, atrial septal aneurysm without PFO- Patient will f/u with Dr. Mcgee as an outpatientLab Results - Pending: H. Influenza B Ab, IgG Drawn at 27-Apr-2017 12:29:00 Culture, Blood Drawn at 27-Apr-2017 10:10:00 Culture, Blood Drawn at 27-Apr-2017 10:09:00 Culture, CSF, includes smear Drawn at 27-Apr-2017 08:49:00 Cryptococcal Ag Qualitative Drawn at 27-Apr-2017 08:49:00Miscellaneous Lab Test Drawn at 27-Apr-2017 08:49:00Radiology Results - Pending: NoneSignature/Cosignature/ Attestation:Provider/Team Contact Info-Pager Number [phone] Attestation I saw and evaluated the patient. I personally obtainedthe cat and critical portions of the history and physical exam or wasphysically present for cat and critical portions performed by theresident/fellow. I reviewed the resident/fellow?s documentation and discussedthe patient with the resident/fellow. I agree with the resident/fellow?smedical decision making as documented in the resident?s note.I personally evaluated the patient (as noted in the above attestation) [id number] Signatures:Joe Rey () (Signed 30-Apr-2017 15:23) Authored: Summary Content, Ongoing Care, Signature/Cosignature/Atte station Co-Signer: Summary Content, Ongoing Care, Signature/Cosignature/Atte stationProsper Constantino (Resident)) (Signed 30-Apr-2017 14:24) Authored: Send Summary, Summary Content, Ongoing Care,Signature/Cosignature /AttestationLast Updated: 30-Apr-2017 15:23 by Joe Rey ()References:1. Data Referenced From Consult-Infectious Disease 29-Apr-2017 10:33 AM Normal [facility] H. INFLUENZA B AB, IGGon H. INFLUENZA B AB, IGG 0.0 ug/mL Normal [facility] Comment on above: Result Comment: INTE RPRETIVE INFORMATION: H. Influenzae b Ab, IgG Less than 1.0 ug/mL ...... Antibody concentration not protective. 1.0 ug/mL or greater ..... Antibodies to H. Influenzae b detected. Suggestive of protection.Responder status is determined according to the ratio ofpost-vaccination concentration to pre-vaccination concentration ofHaemophilus influenza b antibody, IgG as follows: 1. If the post-vaccination concentration is less than 3.0 ug/mL, the patient is considered to be a non-responder. 2. If the post-vaccination concentration is greater than or equal to 3.0 ug/mL, a patient with a ratio of greater than or equal to 4 is a good responder, a ratio of 2-4 is a weak responder, and a ratio of less than 2 is considered a non-responder.Test developed and characteristics determined by [facility]. See Compliance Statement B: Delivery Agent/CSPerformed by [employer],[address] [place] [id number] lpk.Delivery Agent, Sumeet Nichols MD - Lab. Director Performed By: #### C OAGS ####[facility] [place] [address] MAGNESIUMon 04-30-2017 Magnesium 1.96 mg/dL Normal 1.60 - 2.40 [facility] Comment on above: Performed By: #### C OAGS ####[facility] [place] [address] RENAL FUNCTION PANELon 04-30 Albumin 3.6 g/dL Normal 3.4 - 5.0 [facility] Comment on above: Performed By: #### C OAGS ####[facility] [place] [address] Anion gap 11 mmol/L Normal 10 - 20 [facility] Comment on above: Performed By: #### C OAGS ####[facility] [place] [address] Bicarbonate (HCO3) 27 mmol/L Normal 21 - 32 [facility] Comment on above: Performed By: #### C OAGS ####[facility] [place] [address] Calcium 9.0 mg/dL Normal 8.6 - 10.6 [facility] Comment on above: Performed By: #### C OAGS ####[facility] [place] [address] Chloride 105 mmol/L Normal 98 - 107 [facility] Comment on above: Performed By: #### C OAGS ####[facility] [place] [address] Creatinine 0.79 mg/dL Normal 0.50 - 1.30 [facility] Comment on above: Performed By: #### C OAGS ####[facility] [place] [address] eGFR (non-black) mL/min/{1.73_m2} Normal >60 [facility] Comment on above: Result Comment: CALC ULATIONS OF ESTIMATED GFR ARE PERFORMED USING THE MDRD STUDY EQUATION FOR THE IDMS-TRACEABLE CREATININE METHODS. CLIN CHEM 2007;53:766-72 Performed By: #### C OAGS ####[facility] [place] [address] Glucose mass conc 108 mg/dL High 74 - 99 [facility] Comment on above: Performed By: #### C OAGS ####[facility] [place] [address] Phosphate 3.2 mg/dL Normal 2.5 - 4.9 [facility] Comment on above: Result Comment: The performance characteristics of phosphorus testing in heparinized plasma have been validated by the individual laboratory site where testing is performed. Testing on heparinized plasma is not approved by the FDA; however, such approval is not necessary. Performed By: #### C OAGS ####[facility] [place] [address] Potassium molar conc 4.2 mmol/L Normal 3.5 - 5.3 [facility] Comment on above: Performed By: #### C OAGS ####[facility] [place] [address] Sodium 139 mmol/L Normal 136 - 145 [facility] Comment on above: Performed By: #### C OAGS ####[facility] [place] [address] Urea nitrogen 12 mg/dL Normal 6 - 23 [facility] Comment on above: Performed By: #### C OAGS ####[facility] [place] [address] ADENOVIRUS DNA PCR, QUANT (N ON-BLOOD SPECIMEN)on 04-29-2017 ADENOVIRUS qPCR Not Detected Normal Not Detected [facility] Comment on above: Result Comment: Assa y Range: 109 copies/mL to 9v88s31 copies/mLExpected Value: Not DetectedThe limit of quantitation (LOQ) is 109 copies/mL.Adenovirus DNA detected below the LOQ will be reported asDetected:-<109 copies/mL.This test was developed and its performancecharacteristics determined by [employer]. It has notbeen cleared or approved by the U.S. Food and DrugAdministration.-Results should be used in conjunction withclinical findings, and should not form the sole basis fora diagnosis or treatment decision.PCR tests are performed pursuant to a license agreementwith [employer]. ____Performed At:[facility] [place] [address]XbbzfphrSophia Sethi PhD HCLD (ABB)CLIA# [id number] Performed By: #### C OAGS ####[facility] [place] [address] CBC AND DIFFERENTIALon 04-29 % AUTOMATED IMMATURE GRAN 0.5 % Normal 0.0 - 0.9 [facility] Comment on above: Result Comment: Perc ent differential counts (%) should be interpreted in the context of the absolute cell counts (cells/L). Performed By: #### E MRAD ####NO LOCATION NEEDED % NEUTROPHIL 62.4 % Normal 40.0 - 80.0 [facility] Comment on above: Performed By: #### E MRAD ####NO LOCATION NEEDED Basophils/100 WBC Auto (Bld) 0.6 % Normal 0.0 - 2.0 [facility] Comment on above: Performed By: #### E MRAD ####NO LOCATION NEEDED Basophils/100 WBC Auto (Bld) 0.04 x10E9/L Normal 0.00 - 0.10 [facility] Comment on above: Performed By: #### E MRAD ####NO LOCATION NEEDED Eosinophils 0.36 10*3/uL Normal 0.00 - 0.70 [facility] Comment on above: Performed By: #### E MRAD ####NO LOCATION NEEDED Eosinophils/100 leukocytes 5.5 % Normal 0.0 - 6.0 [facility] Comment on above: Performed By: #### E MRAD ####NO LOCATION NEEDED Erythrocyte distribution width Auto Ratio (RBC) 13.2 % Normal 11.5 - 14.5 [facility] Comment on above: Performed By: #### E MRAD ####NO LOCATION NEEDED Erythrocytes (RBC) 4.38 x10E12/L Low 4.50 - 5.90 [facility] Comment on above: Performed By: #### E MRAD ####NO LOCATION NEEDED Hematocrit (HCT) 41.5 % Normal 41.0 - 52.0 [facility] Comment on above: Performed By: #### E MRAD ####NO LOCATION NEEDED Hemoglobin mass conc (Bld) 13.7 g/dL Normal 13.5 - 17.5 [facility] Comment on above: Performed By: #### E MRAD ####NO LOCATION NEEDED Lymphocytes 1.38 10*3/uL Normal 1.20 - 4.80 [facility] Comment on above: Performed By: #### E MRAD ####NO LOCATION NEEDED Lymphocytes/100 leukocytes 21.3 % Normal 13.0 - 44.0 [facility] Comment on above: Performed By: #### E MRAD ####NO LOCATION NEEDED MCHC mass conc (RBC) 33.0 g/dL Normal 32.0 - 36.0 [facility] Comment on above: Performed By: #### E MRAD ####NO LOCATION NEEDED MCV 95 fL Normal 80 - 100 [facility] Comment on above: Performed By: #### E MRAD ####NO LOCATION NEEDED Monocytes 0.63 10*3/uL Normal 0.10 - 1.00 [facility] Comment on above: Performed By: #### E MRAD ####NO LOCATION NEEDED Monocytes/100 leukocytes 9.7 % Normal 2.0 - 10.0 [facility] Comment on above: Performed By: #### E MRAD ####NO LOCATION NEEDED Neutrophils 4.05 10*3/uL Normal 1.20 - 7.70 [facility] Comment on above: Performed By: #### E MRAD ####NO LOCATION NEEDED Nucleated erythrocytes 0.0 /100 WBC Normal 0.0-0.0 [facility] Comment on above: Performed By: #### E MRAD ####NO LOCATION NEEDED Platelets 256 10*3/uL Normal 150 - 450 [facility] Comment on above: Performed By: #### E MRAD ####NO LOCATION NEEDED WBC (Leukocytes) 6.5 10*3/uL Normal 4.4 - 11.3 [facility] Comment on above: Performed By: #### E MRAD ####NO LOCATION NEEDED CELL CT,CSF PATH REVIEWon PATH REVIEW-CSF K.VAL Normal [facility] Comment on above: Result Comment: By h er/his signature above, the Pathologist listed as making the final interpretation certifies that she/he has personally reviewed this case. FREQUENT NEUTROPHILS. NO DEFINITIVE MICROORGANISMS SEEN.CORRELATION WITH MICROBIOLOGIC STUDIES SUGGESTED. Performed By: #### E MRAD ####NO LOCATION NEEDED PATH REVIEW-CSF K.VAL Normal [facility] Comment on above: Result Comment: By h er/his signature above, the Pathologist listed as making the final interpretation certifies that she/he has personally reviewed this case. FREQUENT NEUTROPHILS. NO DEFINITIVE MICROORGANISMS SEEN.CORRELATION WITH MICROBIOLOGIC STUDIES SUGGESTED. Performed By: #### E MRAD ####NO LOCATION NEEDED CMV DNA PCR, QUANT (NON-BLOO D SPECIMEN)on 04-29-2017 CMV PCR,QUANT PCR Not Detected Normal Not Detected [facility] Comment on above: Result Comment: Assa y Range: 142 IU/mL to 1.56x80q7 IU/mLExpected Value: Not DetectedAs July 24, 2012 results for quantitative CMV testingare resulted in International Units (IU).-One IU is equalto 0.53 copies of CMV.The limit of quantitation (LOQ) is 142 IU/mL.- CMV DNAdetected below the LOQ will be reported as Detected: <142IU/mL.This test was developed and its performancecharacteristics determined by [employer]. It has notbeen cleared or approved by the U.S. Food and DrugAdministration.-Results should be used in conjunction withclinical findings, and should not form the sole basis fora diagnosis or treatment decision.PCR tests are performed pursuant to a license agreementwith [employer]. ____Performed At:[facility] [place] [address]IjxlbtjeSophia Sethi PhD HCLD (ABB)CLIA# [id number] Performed By: #### C [facility] ####[facility] [place] [address] EBV DNA PCR, QUANT (NON-BLOO D SPECIMEN)on 04-29-2017 EBV qPCR Not Detected Normal Not Detected [facility] Comment on above: Result Comment: Assa y Range: 52 IU/mL to 1.47u27b9 IU/mLExpected Value: Not DetectedAs July 24, 2012 results for quantitative EBV testingare resulted in International Units (IU).-One IU is equalto 0.59 copies of EBV.The limit of quantitation (LOQ) is 52 IU/mL.- EBV DNAdetected below the LOQ will be reported as Detected: <52IU/mL.This test was developed and its performancecharacteristics determined by [employer]. It has notbeen cleared or approved by the U.S. Food and DrugAdministration.-Results should be used in conjunction withclinical findings, and should not form the sole basis fora diagnosis or treatment decision.PCR tests are performed pursuant to a license agreementwith [employer]. ____Performed At:[facility] [facility] [address]NlfooftnSophia Sethi PhD HCLD (ABB)CLIA# [id number] Performed By: #### C OAGS ####[address] [place] [address] ENTEROVIRUS PCR,CSFon 2017 ENTEROVIRUS PCR,CSF NOT DETECTED Normal Not Detected [facility] Comment on above: Result Comment: W ITH OTHER DIAGNOSTIC PROCEDURES, THIS RESULT SHOULD BEUSED ONLY AN ADJUNCT TO CLINICAL OBSERVATION AND OTHERINFORMATION AVAILABLE TO THE PHYSICIAN.A POSITIVE RESULT DOES NOT RULE OUT OTHER CAUSES OFMENINGITIS, INCLUDING BACTERIA,MYCOBACTERIA,OTHER VIRUSES(e.g. HERPES FAMILY VIRUSES,ARBOVIRUSES,MUMPS VIRUS,ETC.)ANDFUNGI. RARE OCCURRENCES OF SIMULTANEOUS MIXED BACTERIAL-VIRALMENINGITIS HAVE BEEN REPORTED.A NEGATIVE RESULT DOES NOT RULE OUT ENTEROVIRUS A CAUSE OFMENINGITIS BUT THAT ENTEROVIRUS WAS NOT DETECTED IN THE SAMPLE.AN INDETERMINANT RESULT IS LIKELY DUE TO INTERFERING SUBSTANCEIN THE SPECIMEN. Performed By: #### E MRAD ####NO LOCATION NEEDED Echocardiogramon 04-29-2017 Echocardiogram [facility] nter, [address] [place] [address] and BQLORRNHNUAOT ECHOCARDIOGRAM REPORT Patient Name: RADHA Rico Physician: [id number] Ken Mitchell MDStudy Date: 04/29/2017 Referring Joe Rey MD Physician:MRN/PID: [id number] PCP:Accession/Order#: [id number] Department [facility] Non Location: InvasiveDate of : 1955 Fellow:Gender: M Nurse:Admit Date: 04/27/2017 Employee Development Manager: Tootie Mccoy RDCSAdmission Status: Inpatient - Additional Staff: RoutineHeight: 177.80 cm CC Report [facility]: [facility]: 67.59 kg Study Type: EchocardiogramBSA: 1.84 m2Wepbt Pressure: 120 /76 mmHgDiagnosis/ICD: I63.8 Other cerebral infarctionIndication: strokeProcedure/CPT: Echo Complete w/Full Doppler (75227)Patient History: No pertinent past medical history.Study Detail: The following Echo studies were performed: 2D, M-Mode, Doppler and color flow. Technically challenging study due to body habitus. Agitated saline used as a contrast agent for intraseptal flow evaluation. PHYSICIAN INTERPRETATION:Left Ventricle: The left ventricular systolic function is low normal, with an estimated ejection fraction of 50%. The left ventricular cavity size is normal. There is no evidence of left ventricular hypertrophy. Spectral Doppler shows an impaired relaxation pattern of left ventricular diastolic filling.Left Atrium: The left atrium is mildly dilated. There is no evidence of a patent foramen ovale. There is evidence of an atrial septal aneurysm.Right Ventricle: The right ventricle is normal in size. There is normal right ventricular global systolic function.Right Atrium: The right atrium is normal in size.Aortic Valve: The aortic valve is trileaflet. There is no evidence of aortic valve regurgitation. The peak instantaneous gradient of the aortic valve is 6.2 mmHg.Mitral Valve: The mitral valve is normal in structure. There is no evidence of mitral valve regurgitation.Tricuspid Valve: The tricuspid valve is structurally normal. There is trace tricuspid regurgitation. The right ventricular systolic pressure is unable to be estimated.Pulmonic Valve: The pulmonic valve is not well visualized. There is physiologic pulmonic valve regurgitation.Pericardium: There is a trivial pericardial effusion.Aorta: The aortic root is normal.Systemic Veins: The inferior vena cava appears to be of normal size. CONCLUSIONS: 1. The left ventricular systolic function is low normal with a 50% estimated ejection fraction. 2. Spectral Doppler shows an impaired relaxation pattern of left ventricular diastolic filling. 3. There is no evidence of left ventricular hypertrophy. 4. There is no evidence of a patent foramen ovale. 5. Atrial septal aneurysm present.QUANTITATIVE DATA SUMMARY:2D MEASUREMENTS: Normal Ranges:IVSd: 0.63 cm (0.6-1.1cm)LVPWd: 1.23 cm (0.6-1.1cm)LVIDd: 5.03 cm (3.9-5.9cm)LVIDs: 3.25 cmLV Mass Index: 90.5 g/m2LV % FS 35.4 %LA VOLUME: Normal Ranges:LA Vol A4C: 49.5 ml (22+/-6mL/m2)LA Vol A2C: 65.8 mlLA Vol BP: 60.3 mlLA Vol Index A4C: 26.9 ml/m2LA Vol Index A2C: 35.7 ml/m2LA Vol Index BP: 32.8 ml/m2LA Area A4C: 18.6 cm2LA Area A2C: 20.3 cm2LA [place] A4C: 5.9 cmLA [place] A2C: 5.3 cmLA Volume Index: 32.8 ml/m2RA VOLUME BY A/L METHOD: Normal Ranges:RA Area A4C: 16.6 [id number] MEASUREMENTS: Normal Ranges:Ao Root: 3.30 cm (2.0-3.7cm)LAs: 3.40 cm (2.7-4.0cm)AORTA MEASUREMENTS: Normal Ranges:Asc Ao, d: 2.70 cm (2.1-3.4cm)Ao Arch: 2.69 cm (2.0-3.6cm)LV SYSTOLIC FUNCTION BY 2D PLANIMETRY (MOD): Normal Ranges:EF-A4C View: 49.0 % (>55%)EF-A2C View: 50.2 %EF-Biplane: 51.4 %LV DIASTOLIC FUNCTION: Normal Ranges:MV Peak E: 0.58 m/s (0.7-1.2 m/s)MV Peak A: 0.68 m/s (0.42-0.7 m/s)E/A Ratio: 0.85 (1.0-2.2)MV e' 0.08 m/s (>8.0)MV lateral e' 0.09 m/sMV medial e' 0.06 m/sMV A Dur: 88.00 msecE/e' Ratio: 7.77 (<8.0)MV DT: 225 msec (150-240 msec)PulmV Sys Manjinder: 66.50 cm/sPulmV Camejo Manjinder: 46.60 cm/sPulmV S/D Manjinder: 1.40PulmV A Revs Manjinder: 34.00 cm/sPulmV A Revs Dur: 123.00 msecMITRAL VALVE: Normal Ranges:MV DT: 225 msec (150-240msec)AORTIC VALVE: Normal Ranges:AoV Vmax: 1.24 m/s (<1.7m/s)AoV Peak P.2 mmHg (<20mmHg)LVOT Max Manjinder: 0.99 m/s (<1.1m/s)LVOT VTI: 18.90 cmLVOT Diameter: 1.90 cm (1.8-2.4cm)AoV Area,Vmax: 2.27 cm2 (2.5-4.5cm2)RIGHT VENTRICLE:RV 1 3.43 cmRV 2 2.01 cmRV 3 6.45 cmTAPSE: 22.8 mmRV s' 0.10 m/sTRICUSPID VALVE/RVSP: Normal Ranges:Peak TR Velocity: 1.40 m/sRV Syst Pressure: 10.8 (< 30mmHg)IVC Diam: 1.57 cmPULMONIC VALVE: Normal Ranges:PV Accel Time: 141 msec (>120ms)PV Max Manjinder: 0.9 m/s (0.6-0.9m/s)PV Max P.0 mmHgPulmonary Veins:PulmV A Revs Dur: 123.00 msecPulmV A Revs Manjinder: 34.00 cm/sPulmV Camejo Manjinder: 46.60 cm/sPulmV S/D Manjinder: 1.40PulmV Sys Manjinder: 66.50 cm/s [id number] Ken Mitchell MDElectronically signed on 04/29/2017 at 5:03:56 PM Final Normal [facility] GLUCOSE-POCTon 04-29-2017 Glucose mass conc 125 mg/dL High 74 - 99 [facility] Comment on above: Performed By: #### E MRAD ####NO LOCATION NEEDED Glucose mass conc 88 mg/dL Normal 74 - 99 [facility] Comment on above: Performed By: #### E MRAD ####NO LOCATION NEEDED Glucose mass conc 104 mg/dL High 74 - 99 [facility] Comment on above: Performed By: #### E MRAD ####NO LOCATION NEEDED HHV-6 DNA PCR, QUANT (NON-BL OOD SPECIMEN)on 04-29-2017 HHV-6 PCR Not Detected Normal Not Detected [facility] Comment on above: Result Comment: Jaskaran y Range: 81 copies/mL to 1x10e8 copies/mLExpected Value: Not DetectedThe limit of quantitation (LOQ) is 81 copies/mL.- HHV-6DNA detected below the LOQ will be reported as Detected:<81 copies/mL.This test was developed and its performancecharacteristics determined by [employer]. It has notbeen cleared or approved by the U.S. Food and DrugAdministration.-Results should be used in conjunction withclinical findings, and should not form the sole basis fora diagnosis or treatment decision.PCR tests are performed pursuant to a license agreementwith [employer]. ____Performed At:[facility]Man[address] [address]NciwlaafSophia Sethi PhD HCLD (ABB)CLIA# [id number] Performed By: #### C OAGS ####[facility] [place] [address] LYME ABS, CSFon 04-29-2017 LYME ABS, CSF Canceled Normal [facility] Comment on above: Order Comment: TEST LYME ABS, CSF WAS CANCELLED, 04/29/2017 12:57 QNS, PLEASE RESUBMIT.. Performed By: #### E MRAD ####NO LOCATION NEEDED MAGNESIUMon 04-29-2017 Magnesium 1.93 mg/dL Normal 1.60 - 2.40 [facility] Comment on above: Performed By: #### E MRAD ####NO LOCATION NEEDED OLIGOCLONAL BANDINGon 2017 Albumin Canceled Normal [facility] Comment on above: Order Comment: TEST OLIGOCLONAL BANDING WAS CANCELLED, 04/29/2017 12:56 QNS, PLEASERESUBMIT.. Performed By: #### E MRAD ####NO LOCATION NEEDED ALBUMIN, CSF Canceled Normal [facility] Comment on above: Order Comment: TEST OLIGOCLONAL BANDING WAS CANCELLED, 04/29/2017 12:56 QNS, PLEASERESUBMIT.. Performed By: #### E MRAD ####NO LOCATION NEEDED CSF IGG SYNTHESIS RATE Canceled Normal [facility] Comment on above: Order Comment: TEST OLIGOCLONAL BANDING WAS CANCELLED, 04/29/2017 12:56 QNS, PLEASERESUBMIT.. Performed By: #### E MRAD ####NO LOCATION NEEDED CSF OLIGOCLONAL BANDS Canceled Normal [facility] Comment on above: Order Comment: TEST OLIGOCLONAL BANDING WAS CANCELLED, 04/29/2017 12:56 QNS, PLEASERESUBMIT.. Performed By: #### E MRAD ####NO LOCATION NEEDED Globulin Canceled Normal [facility] Comment on above: Order Comment: TEST OLIGOCLONAL BANDING WAS CANCELLED, 04/29/2017 12:56 QNS, PLEASERESUBMIT.. Performed By: #### E MRAD ####NO LOCATION NEEDED IGG INDEX Canceled Normal [facility] Comment on above: Order Comment: TEST OLIGOCLONAL BANDING WAS CANCELLED, 04/29/2017 12:56 QNS, PLEASERESUBMIT.. Performed By: #### E MRAD ####NO LOCATION NEEDED IMMUNOGLOBULIN G,CSF Canceled Normal [facility] Comment on above: Order Comment: TEST OLIGOCLONAL BANDING WAS CANCELLED, 04/29/2017 12:56 QNS, PLEASERESUBMIT.. Performed By: #### E MRAD ####NO LOCATION NEEDED INR Coag RelTime (Bld) Canceled Normal [facility] Comment on above: Order Comment: TEST OLIGOCLONAL BANDING WAS CANCELLED, 04/29/2017 12:56 QNS, PLEASERESUBMIT.. Performed By: #### E MRAD ####NO LOCATION NEEDED INTERPRETATION Canceled Normal [facility] Comment on above: Order Comment: TEST OLIGOCLONAL BANDING WAS CANCELLED, 04/29/2017 12:56 QNS, PLEASERESUBMIT.. Performed By: #### E MRAD ####NO LOCATION NEEDED OLIGOCLONAL BANDS NO.CSF Canceled Normal [facility] Comment on above: Order Comment: TEST OLIGOCLONAL BANDING WAS CANCELLED, 04/29/2017 12:56 QNS, PLEASERESUBMIT.. Performed By: #### E MRAD ####NO LOCATION NEEDED RENAL FUNCTION PANELon 04-29 Albumin 3.5 g/dL Normal 3.4 - 5.0 [facility] Comment on above: Performed By: #### E MRAD ####NO LOCATION NEEDED Anion gap 13 mmol/L Normal 10 - 20 [facility] Comment on above: Performed By: #### E MRAD ####NO LOCATION NEEDED Bicarbonate (HCO3) 25 mmol/L Normal 21 - 32 [facility] Comment on above: Performed By: #### E MRAD ####NO LOCATION NEEDED Calcium 8.7 mg/dL Normal 8.6 - 10.6 [facility] Comment on above: Performed By: #### E MRAD ####NO LOCATION NEEDED Chloride 105 mmol/L Normal 98 - 107 [facility] Comment on above: Performed By: #### E MRAD ####NO LOCATION NEEDED Creatinine 0.81 mg/dL Normal 0.50 - 1.30 [facility] Comment on above: Performed By: #### E MRAD ####NO LOCATION NEEDED eGFR (non-black) mL/min/{1.73_m2} Normal >60 [facility] Comment on above: Performed By: #### E MRAD ####NO LOCATION NEEDED Result Comment: CALC ULATIONS OF ESTIMATED GFR ARE PERFORMED USING THE MDRD STUDY EQUATION FOR THE IDMS-TRACEABLE CREATININE METHODS. CLIN CHEM 2007;53:766-72 Glucose mass conc 108 mg/dL High 74 - 99 [facility] Comment on above: Performed By: #### E MRAD ####NO LOCATION NEEDED Phosphate 3.4 mg/dL Normal 2.5 - 4.9 [facility] Comment on above: Result Comment: The performance characteristics of phosphorus testing in heparinized plasma have been validated by the individual laboratory site where testing is performed. Testing on heparinized plasma is not approved by the FDA; however, such approval is not necessary. Performed By: #### E MRAD ####NO LOCATION NEEDED Potassium molar conc 4.0 mmol/L Normal 3.5 - 5.3 [facility] Comment on above: Performed By: #### E MRAD ####NO LOCATION NEEDED Sodium 139 mmol/L Normal 136 - 145 [facility] Comment on above: Performed By: #### E MRAD ####NO LOCATION NEEDED Urea nitrogen 17 mg/dL Normal 6 - 23 [facility] Comment on above: Performed By: #### E MRAD ####NO LOCATION NEEDED VANCOMYCIN,TROUGHon 04-29-19 18 VANCOMYCIN,TROUGH 12.3 ug/mL Normal 5.0 - 20.0 [facility] Comment on above: Result Comment: Vanc omycin levels should be interpreted in conjunction with the dose, disease being treated, vancomycin TAMICA, time of draw (trough concentrations should be obtained just before the next dose at steady-state), and other clinical information. Trough concentrations of 15-20 ug/mL are desired for severe infections. Ref.: Am J Health-Syst Pharm 66: 83-98, 2008. Performed By: #### E MRAD ####NO LOCATION NEEDED VZV DNA BY PCR, QUALon 04-29 VZV DNA BY PCR Canceled Normal [facility] Comment on above: Order Comment: TEST VZV DNA BY PCR, QUAL WAS CANCELLED, 04/29/2017 12:56 QNS, PLEASERESUBMIT.. Performed By: #### E MRAD ####NO LOCATION NEEDED CBC AND DIFFERENTIALon 04-28 % AUTOMATED IMMATURE GRAN 0.3 % Normal 0.0 - 0.9 [facility] Comment on above: Result Comment: Perc ent differential counts (%) should be interpreted in the context of the absolute cell counts (cells/L). Performed By: #### C OAGS ####[facility] [place] [address] % NEUTROPHIL 69.1 % Normal 40.0 - 80.0 [facility] Comment on above: Performed By: #### C OAGS ####[facility] [place] [address] Basophils/100 WBC Auto (Bld) 0.5 % Normal 0.0 - 2.0 [facility] Comment on above: Performed By: #### C OAGS ####[facility] [place] [address] Basophils/100 WBC Auto (Bld) 0.04 x10E9/L Normal 0.00 - 0.10 [facility] Comment on above: Performed By: #### C OAGS ####[facility] [place] [address] Eosinophils 0.12 10*3/uL Normal 0.00 - 0.70 [facility] Comment on above: Performed By: #### C OAGS ####[facility] [place] [address] Eosinophils/100 leukocytes 1.4 % Normal 0.0 - 6.0 [facility] Comment on above: Performed By: #### C OAGS ####[facility] [place] [address] Erythrocyte distribution width Auto Ratio (RBC) 13.2 % Normal 11.5 - 14.5 [facility] Comment on above: Performed By: #### C OAGS ####[facility] [place] [address] Erythrocytes (RBC) 4.43 x10E12/L Low 4.50 - 5.90 [facility] Comment on above: Performed By: #### C OAGS ####[facility] [place] [address] Hematocrit (HCT) 42.0 % Normal 41.0 - 52.0 [facility] Comment on above: Performed By: #### C OAGS ####[facility] [place] [address] Hemoglobin mass conc (Bld) 13.8 g/dL Normal 13.5 - 17.5 [facility] Comment on above: Performed By: #### C OAGS ####[facility] [place] [address] Lymphocytes 1.70 10*3/uL Normal 1.20 - 4.80 [facility] Comment on above: Performed By: #### C OAGS ####[facility] [place] [address] Lymphocytes/100 leukocytes 19.7 % Normal 13.0 - 44.0 [facility] Comment on above: Performed By: #### C OAGS ####[facility] [place] [address] MCHC mass conc (RBC) 32.9 g/dL Normal 32.0 - 36.0 [facility] Comment on above: Performed By: #### C OAGS ####[facility] [place] [address] MCV 95 fL Normal 80 - 100 [facility] Comment on above: Performed By: #### C OAGS ####[facility] [place] [address] Monocytes 0.78 10*3/uL Normal 0.10 - 1.00 [facility] Comment on above: Performed By: #### C OAGS ####[facility] [place] [address] Monocytes/100 leukocytes 9.0 % Normal 2.0 - 10.0 [facility] Comment on above: Performed By: #### C OAGS ####[facility] [place] [address] Neutrophils 5.95 10*3/uL Normal 1.20 - 7.70 [facility] Comment on above: Performed By: #### C OAGS ####[facility] [place] [address] Nucleated erythrocytes 0.0 /100 WBC Normal 0.0-0.0 [facility] Comment on above: Performed By: #### C OAGS ####[facility] [place] [address] Platelets 263 10*3/uL Normal 150 - 450 [facility] Comment on above: Performed By: #### C OAGS ####[facility] [place] [address] WBC (Leukocytes) 8.6 10*3/uL Normal 4.4 - 11.3 [facility] Comment on above: Performed By: #### C OAGS ####[facility] [place] [address] COAGULATION SCREENon 018 aPTT 29 s Normal 25 - 36 [facility] Comment on above: Result Comment: THE APTT IS NO LONGER USED FOR MONITORING UNFRACTIONATED HEPARIN THERAPY. FOR MONITORING HEPARIN THERAPY, USE THE HEPARIN ASSAY. Performed By: #### E MRAD ####NO LOCATION NEEDED INR Coag RelTime (PPP) 1.0 {INR} Normal 0.9 - 1.1 [facility] Comment on above: Performed By: #### E MRAD ####NO LOCATION NEEDED Prothrombin time (PT) Coag time (PPP) 11.5 s Normal 9.8 - 12.7 [facility] Comment on above: Performed By: #### E MRAD ####NO LOCATION NEEDED GLUCOSE-POCTon 04-28-2017 Glucose mass conc 94 mg/dL Normal 74 - 99 [facility] Comment on above: Performed By: #### E MRAD ####NO LOCATION NEEDED Glucose mass conc 91 mg/dL Normal 74 - 99 [facility] Comment on above: Performed By: #### C OAGS ####[facility] [place] [address] HEMOGLOBIN A1Con 04-28-2017 Glucose mass conc 126 mg/dL Normal [facility] Comment on above: Performed By: #### E MRAD ####NO LOCATION NEEDED Hemoglobin A1c/Hemoglobin.total mass fraction (Bld) 6.0 % Normal [facility] Comment on above: Result Comment: Diag nosis of Diabetes-Adults Non-Diabetic: < or = 5.6% Increased risk for developing diabetes: 5.7-6.4% Diagnostic of diabetes: > or = 6.5%. Monitoring of Diabetes Age (y) Therapeutic Goal (%) Adults: >18 <7.0 Pediatrics: 13-18 <7.5 7-12 <8.0 0- 6 7.5-8.5 [employer]. Diabetes Care 33(S1), Apr 2009. Performed By: #### E MRAD ####NO LOCATION NEEDED Glucose mass conc 128 mg/dL Normal [facility] Comment on above: Performed By: #### E MRAD ####NO LOCATION NEEDED Hemoglobin A1c/Hemoglobin.total mass fraction (Bld) 6.1 % Normal [facility] Comment on above: Result Comment: Diag nosis of Diabetes-Adults Non-Diabetic: < or = 5.6% Increased risk for developing diabetes: 5.7-6.4% Diagnostic of diabetes: > or = 6.5%. Monitoring of Diabetes Age (y) Therapeutic Goal (%) Adults: >18 <7.0 Pediatrics: 13-18 <7.5 7-12 <8.0 0- 6 7.5-8.5 [employer]. Diabetes Care 33(S1), Apr 2009. Performed By: #### E MRAD ####NO LOCATION NEEDED LIPID PANEL (CORONARY RISK 2 )on 04-28-2017 Cholesterol 210 mg/dL High 0 - 199 [facility] Comment on above: Result Comment: . AG E DESIRABLE BORDERLINE HIGH HIGH 0-19 Y 0 - 169 170 - 199 >/= 200 20-24 Y 0 - 189 190 - 224 >/= 225 >24 Y 0 - 199 200 - 239 >/= 240 All ranges are based on fasting samples. Specific therapeutic targets will vary based on patient-specific cardiac risk.. Pediatric guidelines reference:Pediatrics 2011, 128(S5). Adult guidelines reference: NCEP ATPIII Guidelines, KARLO 2001, 258:2486-97. Venipuncture immediately after or during the administration of Metamizole may lead to falsely low results. Testing should be performed immediately prior to Metamizole dosing. Performed By: #### E MRAD ####NO LOCATION NEEDED Cholesterol in VLDL mass conc 27 mg/dL Normal 0 - 40 [facility] Comment on above: Performed By: #### E MRAD ####NO LOCATION NEEDED Cholesterol to HDL Ratio 5.1 {ratio} Abnormal [facility] Comment on above: Result Comment: REF VALUESDESIRABLE < 3.4HIGH RISK > 5.0 Performed By: #### E MRAD ####NO LOCATION NEEDED HDL Cholesterol 40.9 mg/dL Normal [facility] Comment on above: Result Comment: . AG E VERY LOW LOW NORMAL HIGH 0-19 Y < 35 < 40 40-45 ---- 20-24 Y ---- < 40 >45 ---- >24 Y ---- < 40 40-60 >60. Performed By: #### E MRAD ####NO LOCATION NEEDED LDL Cholesterol 142 mg/dL High 0 - 99 [facility] Comment on above: Result Comment: . TRACY BAÑUELOS AGE DESIRABLE OPTIMAL HIGH HIGH VERY HIGH 0-19 Y 0 - 109 --- 110-129 >/= 130 ---- 20-24 Y 0 - 119 --- 120-159 >/= 160 ---- >24 Y 0 - 99 100-129 130-159 160-189 >/=190. Performed By: #### E MRAD ####NO LOCATION NEEDED Triglyceride 134 mg/dL Normal 0 - 149 [facility] Comment on above: Result Comment: . AG E DESIRABLE BORDERLINE HIGH HIGH VERY HIGH 0 D-90 D 19 - 174 ---- ---- ----91 D- 9 Y 0 - 74 75 - 99 >/= 100 ---- 10-19 Y 0 - 89 90 - 129 >/= 130 ---- 20-24 Y 0 - 114 115 - 149 >/= 150 ---- >24 Y 0 - 149 150 - 199 200- 499 >/= 500. Venipuncture immediately after or during the administration of Metamizole may lead to falsely low results. Testing should be performed immediately prior to Metamizole dosing. Performed By: #### E MRAD ####NO LOCATION NEEDED MAGNESIUMon 04-28-2017 Magnesium 2.11 mg/dL Normal 1.60 - 2.40 [facility] Comment on above: Performed By: #### C OAGS ####[facility] [address] RENAL FUNCTION PANELon 04-28 Albumin 3.8 g/dL Normal 3.4 - 5.0 [facility] Comment on above: Performed By: #### E MRAD ####NO LOCATION NEEDED Anion gap 9 mmol/L Low 10 - 20 [facility] Comment on above: Performed By: #### E MRAD ####NO LOCATION NEEDED Bicarbonate (HCO3) 31 mmol/L Normal 21 - 32 [facility] Comment on above: Performed By: #### E MRAD ####NO LOCATION NEEDED Calcium 8.7 mg/dL Normal 8.6 - 10.6 [facility] Comment on above: Performed By: #### E MRAD ####NO LOCATION NEEDED Chloride 101 mmol/L Normal 98 - 107 [facility] Comment on above: Performed By: #### E MRAD ####NO LOCATION NEEDED Creatinine 0.86 mg/dL Normal 0.50 - 1.30 [facility] Comment on above: Performed By: #### E MRAD ####NO LOCATION NEEDED eGFR (non-black) mL/min/{1.73_m2} Normal >60 [facility] Comment on above: Result Comment: CALC ULATIONS OF ESTIMATED GFR ARE PERFORMED USING THE MDRD STUDY EQUATION FOR THE IDMS-TRACEABLE CREATININE METHODS. CLIN CHEM 2007;53:766-72 Performed By: #### E MRAD ####NO LOCATION NEEDED Glucose mass conc 95 mg/dL Normal 74 - 99 [facility] Comment on above: Performed By: #### E MRAD ####NO LOCATION NEEDED Phosphate 3.2 mg/dL Normal 2.5 - 4.9 [facility] Comment on above: Result Comment: The performance characteristics of phosphorus testing in heparinized plasma have been validated by the individual laboratory site where testing is performed. Testing on heparinized plasma is not approved by the FDA; however, such approval is not necessary. Performed By: #### E MRAD ####NO LOCATION NEEDED Potassium molar conc 4.2 mmol/L Normal 3.5 - 5.3 [facility] Comment on above: Performed By: #### E MRAD ####NO LOCATION NEEDED Sodium 137 mmol/L Normal 136 - 145 [facility] Comment on above: Performed By: #### E MRAD ####NO LOCATION NEEDED Urea nitrogen 21 mg/dL Normal 6 - 23 [facility] Comment on above: Performed By: #### E MRAD ####NO LOCATION NEEDED TROPONIN Ion 04-28-2017 Troponin I.cardiac mass conc 0.09 ng/mL High 0.00 - 0.03 [facility] Comment on above: Result Comment: LESS THAN 0.04 NG/ML: NEGATIVEREPEAT TESTING IN FOUR TO SIX HOURSIF CLINICALLY INDICATED.0.04 - 0.5 NG/ML: CONSISTENT WITH POSSIBLECARDIAC DAMAGE AND POSSIBLE INCREASEDCLINICAL RISK.SERIAL MEASUREMENTS MAY HELP ASSESS EXTENT OFMYOCARDIAL DAMAGE.>0.5 NG/ML: CONSISTENT WITH CARDIAC DAMAGE,INCREASED CLINICAL RISK AND MYOCARDIALINFARCTION. SERIAL MEASUREMENTS MAY HELPASSESS EXTENT OF MYOCARDIAL DAMAGE..Note: Troponin I testing is performed using [facility]. Direct result comparisons should onlybe made within the same method.. Patients receiving more than 5 mg/day of biotin may have interference in test results. A sample should be taken no sooner than eight hours after previous dose. Contact [phone] for additional information. Performed By: #### C OAGS ####[facility] [place] [address] BLOOD CULTURE, BACTERIALon 0 04-27-2017 BLOOD CULTURE, BACTERIAL PATIENT: TAHIR FREEMAN LOCATION: [address]#: [id number] : 53 AGE: SEX: M ORDERED BY: NONA QURESHICE: Blood COLLECTED: 04/27/17 10:10ANTIBIOTICS AT [place].: RECEIVED : 04/27/17 11:51SITE: right forearm PERIPHERAL R E S U L T S BLOOD CULTURE, BACTERIAL FINAL 05/02/17 13:42 No Growth at 1 days No Growth at 2 days No Growth at 3 days No Growth at 4 days NO GROWTH - FINAL REPORT Normal [facility] Comment on above: Performed By: #### M G ####[facility] [place] [address] BLOOD CULTURE, BACTERIAL PATIENT: TAHIR FREEMAN LOCATION: [facility] [id number]#: [id number] : 53 AGE: SEX: M ORDERED BY: ZI QURESHI: Blood COLLECTED: 04/27/17 10:09ANTIBIOTICS AT [place].: RECEIVED : 04/27/17 11:49SITE: left forearm PERIPHERAL R E S U L T S BLOOD CULTURE, BACTERIAL FINAL 05/02/17 13:42 No Growth at 1 days No Growth at 2 days No Growth at 3 days No Growth at 4 days NO GROWTH - FINAL REPORT Normal [facility] Comment on above: Performed By: #### M G ####[facility] [place] [address] CBCon 04-27-2017 Erythrocyte distribution width Auto Ratio (RBC) 13.3 % Normal 11.5 - 14.5 [facility] Comment on above: Performed By: #### M G ####[facility] [place] [address] Erythrocytes (RBC) 4.51 x10E12/L Normal 4.50 - 5.90 [facility] Comment on above: Performed By: #### M G ####[facility] [place] [address] Hematocrit (HCT) 42.4 % Normal 41.0 - 52.0 [facility] Comment on above: Performed By: #### M G ####[facility] [place] [address] Hemoglobin mass conc (Bld) 14.0 g/dL Normal 13.5 - 17.5 [facility] Comment on above: Performed By: #### M G ####[facility] [place] [address] MCHC mass conc (RBC) 33.0 g/dL Normal 32.0 - 36.0 [facility] Comment on above: Performed By: #### M G ####[facility], [place] [address] MCV 94 fL Normal 80 - 100 [facility] Comment on above: Performed By: #### M G ####[facility] [place] [address] Nucleated erythrocytes 0.0 /100 WBC Normal 0.0-0.0 [facility] Comment on above: Performed By: #### M G ####[facility] [place] [address] Platelets 283 10*3/uL Normal 150 - 450 [facility] Comment on above: Performed By: #### M G ####[facility] [place] [address] WBC (Leukocytes) 11.1 10*3/uL Normal 4.4 - 11.3 [facility] Comment on above: Performed By: #### M G ####[facility] [place] [address] CBC AND DIFFERENTIALon 04-27 % AUTOMATED IMMATURE GRAN 0.4 % Normal 0.0 - 0.9 [facility] Comment on above: Result Comment: Perc ent differential counts (%) should be interpreted in the context of the absolute cell counts (cells/L). Performed By: #### C BCDF ####[facility] [place] [address] % NEUTROPHIL 85.0 % Normal 40.0 - 80.0 [facility] Comment on above: Performed By: #### C BCDF ####[facility] [place] [address] Basophils/100 WBC Auto (Bld) 0.1 % Normal 0.0 - 2.0 [facility] Comment on above: Performed By: #### C BCDF ####[facility] [place] [address] Basophils/100 WBC Auto (Bld) 0.02 x10E9/L Normal 0.00 - 0.10 [facility] Comment on above: Performed By: #### C BCDF ####[facility] [place] [address] Eosinophils 0.02 10*3/uL Normal 0.00 - 0.70 [facility] Comment on above: Performed By: #### C BCDF ####[facility] [place] [address] Eosinophils/100 leukocytes 0.1 % Normal 0.0 - 6.0 [facility] Comment on above: Performed By: #### C BCDF ####[facility] [place] [address] Erythrocyte distribution width Auto Ratio (RBC) 13.3 % Normal 11.5 - 14.5 [facility] Comment on above: Performed By: #### C BCDF ####[facility] [place] [address] Erythrocytes (RBC) 4.45 x10E12/L Low 4.50 - 5.90 [facility] Comment on above: Performed By: #### C BCDF ####[facility] [place] [address] Hematocrit (HCT) 41.9 % Normal 41.0 - 52.0 [facility] Comment on above: Performed By: #### C BCDF ####[facility] [place] [address] Hemoglobin mass conc (Bld) 14.1 g/dL Normal 13.5 - 17.5 [facility] Comment on above: Performed By: #### C BCDF ####[facility] [place] [address] Lymphocytes 1.19 10*3/uL Low 1.20 - 4.80 [facility] Comment on above: Performed By: #### C BCDF ####[facility] [place] [address] Lymphocytes/100 leukocytes 8.8 % Low 13.0 - 44.0 [facility] Comment on above: Performed By: #### C BCDF ####[facility] [place] [address] MCHC mass conc (RBC) 33.7 g/dL Normal 32.0 - 36.0 [facility] Comment on above: Performed By: #### C BCDF ####[facility] [place] [address] MCV 94 fL Normal 80 - 100 [facility] Comment on above: Performed By: #### C BCDF ####[facility] [place] [address] Monocytes 0.76 10*3/uL Normal 0.10 - 1.00 [facility] Comment on above: Performed By: #### C BCDF ####[facility] [place] [address] Monocytes/100 leukocytes 5.6 % Normal 2.0 - 10.0 [facility] Comment on above: Performed By: #### C BCDF ####[facility] [place] [address] Neutrophils 11.53 10*3/uL High 1.20 - 7.70 [facility] Comment on above: Performed By: #### C BCDF ####[facility] [place] [address] Nucleated erythrocytes 0.0 /100 WBC Normal 0.0-0.0 [facility] Comment on above: Performed By: #### C BCDF ####[facility] [place] [address] Platelets 302 10*3/uL Normal 150 - 450 [facility] Comment on above: Performed By: #### C BCDF ####[facility] [place] [address] WBC (Leukocytes) 13.6 10*3/uL High 4.4 - 11.3 [facility] Comment on above: Performed By: #### C BCDF ####[facility] [place] [address] CELL COUNT AND DIFF, CSFon 0 -24-2018 Erythrocytes (RBC) 0 10*6/uL Normal 0 - 5 [facility] Comment on above: Performed By: #### M G ####[facility] [place] [address] Lymphocytes/100 leukocytes 1 % Normal [facility] Comment on above: Performed By: #### M G ####[facility] [place] [address] MONONUCLEAR CELLS 9 % Normal [facility] Comment on above: Performed By: #### M G ####[facility] [place] [address] Neutrophils/100 leukocytes 90 % Normal [facility] Comment on above: Performed By: #### M G ####[facility] [place] [address] SUPERNATANT Colorless Normal COLORLESS [facility] Comment on above: Performed By: #### M G ####[facility] [place] [address] TUBE # Tube 4 Normal [facility] Comment on above: Performed By: #### M G ####[facility] [place] [address] Urine, clarity Clear Normal CLEAR [facility] Comment on above: Performed By: #### M G ####[facility] [place] [address] Urine, color Colorless Normal COLORLESS [facility] Comment on above: Performed By: #### M G ####[facility] [place] [address] WBC (Leukocytes) 0.051 10*3/uL High 0 - 5 [facility] Comment on above: Performed By: #### M G ####[facility] [place] [address] CELLS COUNTED 100 Normal [facility] Comment on above: Performed By: #### M G ####[facility] [place] [address] Erythrocytes (RBC) 0 10*6/uL Normal 0 - 5 [facility] Comment on above: Performed By: #### M G ####[facility] [place] [address] Lymphocytes/100 leukocytes 6 % Normal [facility] Comment on above: Performed By: #### M G ####[facility] [place] [address] MONONUCLEAR CELLS 6 % Normal [facility] Comment on above: Performed By: #### M G ####[facility] [place] [address] Neutrophils/100 leukocytes 88 % Normal [facility] Comment on above: Performed By: #### M G ####[facility] [place] [address] SUPERNATANT Colorless Normal COLORLESS [facility] Comment on above: Performed By: #### M G ####[facility] [place] [address] TUBE # Tube 1 Normal [facility] Comment on above: Performed By: #### M G ####[facility] [place] [address] Urine, clarity Clear Normal CLEAR [facility] Comment on above: Performed By: #### M G ####[facility] [place] [address] Urine, color Colorless Normal COLORLESS [facility] Comment on above: Performed By: #### M G ####[facility] [place] [address] WBC (Leukocytes) 0.025 10*3/uL High 0 - 5 [facility] Comment on above: Performed By: #### M G ####[facility] [place] [address] CMV DNA PCR, QUANT (NON-BLOO D SPECIMEN)on 04-27-2017 Lab Specimen Source Cerebral spinal fluid Normal [facility] Comment on above: Performed By: #### C OAGS ####[facility] [place] [address] Order Comment: TEST LYME ABS, CSF WAS CANCELLED, 04/29/2017 12:57 QNS, PLEASE RESUBMIT.. Performed By: #### E MRAD ####NO LOCATION NEEDED Performed By: #### M G ####[facility] [place] [address] Order Comment: TEST OLIGOCLONAL BANDING WAS CANCELLED, 04/29/2017 12:56 QNS, PLEASERESUBMIT.. Order Comment: TEST VZV DNA BY PCR, QUAL WAS CANCELLED, 04/29/2017 12:56 QNS, PLEASERESUBMIT.. COAGULATION SCREENon 018 aPTT 29 s Normal 25 - 36 [facility] Comment on above: Result Comment: THE APTT IS NO LONGER USED FOR MONITORING UNFRACTIONATED HEPARIN THERAPY. FOR MONITORING HEPARIN THERAPY, USE THE HEPARIN ASSAY. Performed By: #### C OAGS ####[facility] [place] [address] INR Coag RelTime (PPP) 1.1 {INR} Normal 0.9 - 1.1 [facility] Comment on above: Performed By: #### C OAGS ####[facility] [id number] Prothrombin time (PT) Coag time (PPP) 11.7 s Normal 9.8 - 12.7 [facility] Comment on above: Performed By: #### C OAGS ####[facility] [id number] CSF CULTURE/SM., BACTERIALon 04-27-2017 CSF CULTURE/SM., BACTERIAL Previous comment was modified by TCOMB at 15:47 on 04/30/2017~NO GROWTH, CULTURE IN PROGRESS.NO GROWTHPATIENT: RADHA BRENNAN LOCATION: [facility] S17KGUH#: [id number] : 53 AGE: SEX: M ORDERED BY: ZI QURESHI: CSF COLLECTED: 04/27/17 08:49ANTIBIOTICS AT [facility].: RECEIVED : 04/27/17 10:24SITE: LP Corrected Report R E S U L T S GRAM STAIN FINAL 04/27/17 12:46 1+ GRANULOCYTES. NO ORGANISMS SEEN. CSF CULTURE/SM., BACTERIAL FINAL 05/04/17 15:07 NO GROWTH AEROBICALLY OR ANAEROBICALLY.Previous comment was modified by TCOMB at 15:47 on 04/30/17. NO GROWTH Normal [facility] Comment on above: Performed By: #### C OAGS ####[facility] [place] [address] EMR ADDONon 04-27-2017 ADDON CONFIRMATION REQUEST REC'D Normal [facility] Comment on above: Performed By: #### R ENAL ####[facility] [place] [address] ADDON CONFIRMATION REQUEST REC'D Normal [facility] Comment on above: Performed By: #### R ENAL ####[facility] [place] [address] ADDON CONFIRMATION REQUEST REC'D Normal [facility] Comment on above: Performed By: #### E MRAD ####NO LOCATION NEEDED ADDON CONFIRMATION REQUEST REC'D Normal [facility] Comment on above: Performed By: #### E MRAD ####NO LOCATION NEEDED FUNGAL CULTURE/SM, MISCon FUNGAL CULTURE/SM, MISC PATIENT: RADHA BRENNAN BBBB LOCATION: [address]#: [id number] : 53 AGE: SEX: M ORDERED BY: NONA QURESHICE: CSF COLLECTED: 04/27/17 08:49ANTIBIOTICS AT [facility].: RECEIVED : 05/01/17 01:28SITE: LP R E S U L T S FUNGAL SMEAR FINAL 05/01/17 14:44 FLUORESCENT FUNGAL STAIN: NEGATIVE FUNGAL CULTURE/SM, MISC FINAL 05/16/17 10:13 NO FUNGI ISOLATED. Normal [facility] Comment on above: Performed By: #### M G ####[facility] [place] [address] GLUCOSE-POCTon 04-27-2017 Glucose mass conc 105 mg/dL High 74 - 99 [facility] Comment on above: Performed By: #### C OAGS ####[facility] [place] [address] Glucose mass conc 106 mg/dL High 74 - 99 [facility] Comment on above: Performed By: #### R ENAL ####[facility] [place] [address] Glucose mass conc 107 mg/dL High 74 - 99 [facility] Comment on above: Performed By: #### R ENAL ####[facility] [place] [address] HEPATIC FUNCTION PANELon Alanine aminotransferase (ALT) 9 U/L Low 10 - 52 [facility] Comment on above: Result Comment: Zo ents treated with Sulfasalazine may generate falsely decreased results for ALT. Performed By: #### M G ####[facility] [place] [address] Alkaline phosphatase (ALP) 84 U/L Normal 33 - 136 [facility] Comment on above: Performed By: #### M G ####[facility] [place] [address] Aspartate aminotransferase (AST) 13 U/L Normal 9 - 39 [facility] Comment on above: Performed By: #### M G ####[facility] [place] [address] Bilirubin (direct) 0.1 mg/dL Normal 0.0 - 0.3 [facility] Comment on above: Performed By: #### M G ####[facility] [place] [address] Bilirubin (total) 0.7 mg/dL Normal 0.0 - 1.2 [facility] Comment on above: Performed By: #### M G ####[facility] [place] [address] Protein 6.2 g/dL Low 6.4 - 8.2 [facility] Comment on above: Performed By: #### M G ####[facility] [place] [address] HSV BY PCR QUAL IN CSFon HSV-1 NOT DETECTED Normal Not Detected [facility] Comment on above: Performed By: #### M G ####[facility] [place] [address] HSV-2 NOT DETECTED Normal Not Detected [facility] Comment on above: Result Comment: HSV PCR testing is performed using the FDA cleared [employer] Simplexa HSV 1 AND 2 Direct test.. Negative results do not rule out HSV infections of the central nervous system, particularly HSV encephalitis.. This test should not be used to assess treatment or outcome. Performed By: #### M G ####[facility] [id number] INFLUENZA A + B PCRon 2017 INFLUENZA A, PCR Negative Normal Negative [facility] Comment on above: Result Comment: Resp iratory virus testing is performed routinely by PCR for Influenza A/B and RSV. If Influenza and RSV PCR are negative, testing for parainfluenza 1,2,3 viruses and adenovirus is routinely performed for oncology inpatients and intensive care unit patients at [facility] and is available on request on other patients by calling Laboratory Client Services at [phone]. Performed By: #### C OAGS ####[facility] [id number] INFLUENZA B, PCR Negative Normal Negative [facility] Comment on above: Result Comment: Resp iratory virus testing is performed routinely by PCR for Influenza A/B and RSV. If Influenza and RSV PCR are negative, testing for parainfluenza 1,2,3 viruses and adenovirus is routinely performed for oncology inpatients and intensive care unit patients at [facility] and is available on request on other patients by calling Laboratory Client Services at [phone] Performed By: #### C OAGS ####[facility] [id number] Lab Specimen Source Nasal, Nasopharyngeal Normal [facility] Comment on above: Performed By: #### C OAGS ####[facility] [place] [address] LACTATEon 04-27-2017 Lactate 1.0 mmol/L Normal 0.4 - 2.0 [facility] Comment on above: Result Comment: Suellen puncture immediately after or during the administration of Metamizole may lead to falsely low results. Testing should be performed immediately prior to Metamizole dosing. Performed By: #### R ENAL ####[facility] [id number] Lactate 3.2 mmol/L High 0.4 - 2.0 [facility] Comment on above: Result Comment: Suellen puncture immediately after or during the administration of Metamizole may lead to falsely low results. Testing should be performed immediately prior to Metamizole dosing. Performed By: #### M G ####[facility] [place] [address] MAGNESIUMon 04-27-2017 Magnesium 2.16 mg/dL Normal 1.60 - 2.40 [facility] Comment on above: Performed By: #### R ENAL ####[facility] [place] [address] Magnesium 2.20 mg/dL Normal 1.60 - 2.40 [facility] Comment on above: Performed By: #### M G ####[facility] [place] [address] MISCELLANEOUS TESTon 018 NAME OF SEND OUT TEST RENY, CSF Normal [facility] Comment on above: Performed By: #### M G ####[facility] [id number] NR MRA HEAD W/O Con 04-27-19 18 NR MRA HEAD W/O C Name: RADHA BRENNAN STUDY:NR MRI BRAIN WO; NR MRA HEAD W/O C; NR MRA NECK WO.C; 04/27/2017 5:40pm INDICATION:Signs/Symptoms: concern for meningoencephalitis; possible seizure;including vessels for stroke work-up, Lie Flat: Yes, Pre Med: No. COMPARISON:None. [id number]; [id number] ORDERING CLINICIAN:ANASTACIO FITCH TECHNIQUE:Axial FLAIR, T2 and diffusion weighted images were attempted but arenondiagnostic due to motion artifact. 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 COMPARISON:None. [id number]; [id number] ORDERING CLINICIAN:ANASTACIO FITCH TECHNIQUE:Axial FLAIR, T2 and diffusion weighted images were attempted but arenondiagnostic due to motion artifact. 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 COMPARISON:None. [id number]; [id number] ORDERING CLINICIAN:ANASTACIO FITCH TECHNIQUE:Axial FLAIR, T2 and diffusion weighted images were attempted but arenondiagnostic due to motion artifact. 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*Acute infarction cannot be excluded*No evidence of hemorrhage, extra-axial collection or intracranialmass*MRA was not attempted.*THIS EXAMINATION WAS [facility] [place]: PAN BOLTON MD Normal [facility] RENAL FUNCTION PANELon 04-27 Albumin 4.1 g/dL Normal 3.4 - 5.0 [facility] Comment on above: Performed By: #### R ENAL ####[facility] [place] [address] Anion gap 14 mmol/L Normal 10 - 20 [facility] Comment on above: Performed By: #### R ENAL ####[facility] [place] [address] Bicarbonate (HCO3) 27 mmol/L Normal 21 - 32 [facility] Comment on above: Performed By: #### R ENAL ####[facility] [place] [address] Calcium 8.8 mg/dL Normal 8.6 - 10.6 [facility] Comment on above: Performed By: #### R ENAL ####[facility] [place] [address] Chloride 98 mmol/L Normal 98 - 107 [facility] Comment on above: Performed By: #### R ENAL ####[facility] [place] [address] Creatinine 0.94 mg/dL Normal 0.50 - 1.30 [facility] Comment on above: Performed By: #### R ENAL ####[facility] [place] [address] eGFR (non-black) mL/min/{1.73_m2} Normal >60 [facility] Comment on above: Performed By: #### R ENAL ####[facility] [place] [address] Result Comment: CALC ULATIONS OF ESTIMATED GFR ARE PERFORMED USING THE MDRD STUDY EQUATION FOR THE IDMS-TRACEABLE CREATININE METHODS. CLIN CHEM 2007;53:766-72 Glucose mass conc 111 mg/dL High 74 - 99 [facility] Comment on above: Performed By: #### R ENAL ####[facility] [place] [address] Phosphate 2.4 mg/dL Low 2.5 - 4.9 [facility] Comment on above: Result Comment: The performance characteristics of phosphorus testing in heparinized plasma have been validated by the individual laboratory site where testing is performed. Testing on heparinized plasma is not approved by the FDA; however, such approval is not necessary. Performed By: #### R ENAL ####[facility] [place] [address] Potassium molar conc 4.5 mmol/L Normal 3.5 - 5.3 [facility] Comment on above: Performed By: #### R ENAL ####[facility] [place] [address] Sodium 134 mmol/L Low 136 - 145 [facility] Comment on above: Performed By: #### R ENAL ####[facility] [place] [address] Urea nitrogen 18 mg/dL Normal 6 - 23 [facility] Comment on above: Performed By: #### R ENAL ####[facility] [place] [address] Albumin 4.2 g/dL Normal 3.4 - 5.0 [facility] Comment on above: Performed By: #### R ENAL ####[facility] [place] [address] Performed By: #### M G ####[facility] [place] [address] Anion gap 15 mmol/L Normal 10 - 20 [facility] Comment on above: Performed By: #### R ENAL ####[facility] [place] [address] Bicarbonate (HCO3) 27 mmol/L Normal 21 - 32 [facility] Comment on above: Performed By: #### R ENAL ####[facility] [place] [address] Calcium 8.9 mg/dL Normal 8.6 - 10.6 [facility] Comment on above: Performed By: #### R ENAL ####[facility] [place] [address] Chloride 99 mmol/L Normal 98 - 107 [facility] Comment on above: Performed By: #### R ENAL ####[facility] [facility] [place] [address] Creatinine 0.95 mg/dL Normal 0.50 - 1.30 [facility] Comment on above: Performed By: #### R ENAL ####[facility] [place] [address] eGFR (non-black) mL/min/{1.73_m2} Normal >60 [facility] Comment on above: Result Comment: CALC ULATIONS OF ESTIMATED GFR ARE PERFORMED USING THE MDRD STUDY EQUATION FOR THE IDMS-TRACEABLE CREATININE METHODS. CLIN CHEM 2007;53:766-72 Performed By: #### R ENAL ####[facility] [place] [address] Glucose mass conc 104 mg/dL High 74 - 99 [facility] Comment on above: Performed By: #### R ENAL ####[facility] [place] [address] Phosphate 4.0 mg/dL Normal 2.5 - 4.9 [facility] Comment on above: Result Comment: The performance characteristics of phosphorus testing in heparinized plasma have been validated by the individual laboratory site where testing is performed. Testing on heparinized plasma is not approved by the FDA; however, such approval is not necessary. Performed By: #### R ENAL ####[facility] [place] [address] Potassium molar conc 4.5 mmol/L Normal 3.5 - 5.3 [facility] Comment on above: Performed By: #### R ENAL ####[facility] [place] [address] Sodium 136 mmol/L Normal 136 - 145 [facility] Comment on above: Performed By: #### R ENAL ####[facility] [place] [address] Urea nitrogen 15 mg/dL Normal 6 - 23 [facility] Comment on above: Performed By: #### R ENAL ####[facility] [place] [address] SYPHILIS IGGon 04-27-2017 SYPHILIS IGG NON REACTIVE Normal NONREACTIVE [facility] Comment on above: Result Comment: Zo ents receiving more than 5 mg/day of biotin may have interference in test results. A sample should be taken no sooner than eight hours after previous dose. Contact [phone] for additional information. Performed By: #### R ENAL ####[facility] [place] [address] Lab Specimen Source Normal [facility] Comment on above: Performed By: #### R ENAL ####[facility] [place] [address] TH CHEST 1 VIEWon 04-27-2017 TH CHEST 1 VIEW Name: RADHA BRENNAN STUDY:TH CHEST 1 VIEW; 04/27/2017 8:52 am INDICATION:Signs/Symptoms: leukocytosis, AMS. COMPARISON:04/26/2017 ORDERING CLINICIAN:LUIS DOUGLASS FINDINGS:The cardiomediastinal silhouette is normal in size and configuration. There is no focal consolidation or significant edema. There is nosizeable pneumothorax. The bilateral lung bases and costophrenic angles are not included inthe field of imaging, and small pleural effusion cannot be excluded. There are no acute osseous abnormalities. IMPRESSION:1. No focal consolidation. I personally reviewed the images/study and I agree with the findingsas stated. This study was interpreted at [facility], [place], [place].Electronically signed by: CATHERINE VELASQUEZ MD Normal [facility] TOTAL PROTEIN AND GLUCOSE, C SFon 04-27-2017 GLUCOSE,CSF 78 mg/dL High 40 - 70 [facility] Comment on above: Performed By: #### M G ####[facility] [place] [address] TOTAL PROTEIN,CSF 73 mg/dL High 15 - 45 [facility] Comment on above: Performed By: #### M G ####[facility] [place] [address] TROPONIN Ion 04-27-2017 Troponin I.cardiac mass conc 0.10 ng/mL High 0.00 - 0.03 [facility] Comment on above: Result Comment: LESS THAN 0.04 NG/ML: NEGATIVEREPEAT TESTING IN FOUR TO SIX HOURSIF CLINICALLY INDICATED.0.04 - 0.5 NG/ML: CONSISTENT WITH POSSIBLECARDIAC DAMAGE AND POSSIBLE INCREASEDCLINICAL RISK.SERIAL MEASUREMENTS MAY HELP ASSESS EXTENT OFMYOCARDIAL DAMAGE.>0.5 NG/ML: CONSISTENT WITH CARDIAC DAMAGE,INCREASED CLINICAL RISK AND MYOCARDIALINFARCTION. SERIAL MEASUREMENTS MAY HELPASSESS EXTENT OF MYOCARDIAL DAMAGE..Note: Troponin I testing is performed using differenttesting methodology at [facility] than at [facility]. Direct result comparisons should onlybe made within the same method.. Patients receiving more than 5 mg/day of biotin may have interference in test results. A sample should be taken no sooner than eight hours after previous dose. Contact [phone] for additional information. Performed By: #### R ENAL ####[facility] [place] [address] TSHon 04-27-2017 Thyroid stimulating hormone (TSH) 0.86 m[IU]/L Normal 0.44 - 3.98 [facility] Comment on above: Result Comment: TSH testing is performed using different testing methodology at [facility] than at [facility]. Direct result comparisons should only be made within the same method.. Patients receiving more than 5 mg/day of biotin may have interference in test results. A sample should be taken no sooner than eight hours after previous dose. Contact [phone] for additional information. Performed By: #### C OAGS ####[facility] [place] [address] UA MICROSCOPICon 04-27-2017 Erythrocytes (RBC) 7 /HPF Abnormal 0-5 [facility] Comment on above: Performed By: #### M G ####[facility] [place] [address] Urine, mucus presence in sediment 1+ /LPF Normal [facility] Comment on above: Performed By: #### M G ####[facility] [place] [address] WBC (Leukocytes) 2 /HPF Normal 0-5 [facility] Comment on above: Performed By: #### M G ####[facility] [place] [address] URINALYSISon 04-27-2017 Bilirubin (total) Negative Normal NEGATIVE [facility] Comment on above: Performed By: #### M G ####[facility] [place] [address] BLOOD MODERATE (2+) Abnormal NEGATIVE [facility] Comment on above: Performed By: #### M G ####[facility] [place] [address] Glucose mass conc Negative Normal NEGATIVE [facility] Comment on above: Performed By: #### M G ####[facility] [place] [address] pH of blood 5.0 [pH] Normal 5.0 - 8.0 [facility] Comment on above: Performed By: #### M G ####[facility] [place] [address] Protein Negative Normal NEGATIVE [facility] Comment on above: Performed By: #### M G ####[facility] [place] [address] Urine, appearance CLEAR Normal CLEAR [facility] Comment on above: Performed By: #### M G ####[facility] [place] [address] Urine, color YELLOW Normal STRAW,YELLOW [facility] Comment on above: Performed By: #### M G ####[facility] [place] [address] Urine, ketones presence 5 (TRACE) Abnormal NEGATIVE [facility] Comment on above: Performed By: #### M G ####[facility] [place] [address] Urine, leukocyte esterase presence Negative Normal NEGATIVE [facility] Comment on above: Performed By: #### M G ####[facility] [place] [address] Urine, nitrite presence Negative Normal NEGATIVE [facility] Comment on above: Performed By: #### M G ####[facility] [place] [address] Urine, specific gravity 1.023 Normal 1.005 - 1.035 [facility] Comment on above: Performed By: #### M G ####[facility] [place] [address] Urine, urobilinogen <2.0 Normal 0.0 - 1.9 [facility] Comment on above: Performed By: #### M G ####[facility] [place] [address] VITAMIN B12on 04-27-2017 Cobalamins (Vitamin B12) 426 pg/mL Normal 211 - 911 [facility] Comment on above: Performed By: #### R ENAL ####[facility] [place] [address] Alcoholon 04-26-2017 Ethanol mg/dL Normal <10 [facility] Comment on above: Performed By: #### 1 [id number] ####[facility] [address] [place] [address] B Natriuretic Peptideon 04-05 BNP 22 pg/mL Normal <100 [facility] Comment on above: Performed By: #### 2 [id number] ####[facility] [address] [place] [address] C-Reactive Protein, High Sen sitivityon 04-26-2017 C-Reactive Protein, High Sensitivity 0.90 mg/L Normal [facility] Comment on above: Result Comment: < 1. 0 LOW RELATIVE RISK OF CVD1.0 - 3.0 AVERAGE RELATIVE RISK OF CVD> 3.0 HIGH RELATIVE RISK OF CVD Performed By: #### 2 [id number] ####[facility] [address] [place] [address] CBC With Differentialon 04-05 Basophils Auto #/vol (Bld) 0.05 10*3/uL Normal 0.01-0.09 [facility] Comment on above: Performed By: #### 2 [id number] ####[facility] [address] [place] [address] Basophils/100 WBC Auto (Bld) 0.3 % Normal 0.0-1.3 [facility] Comment on above: Performed By: #### 2 285209 ####[facility] [address] [place] [address] Eosinophils 0.12 10*3/uL Normal 0.01-0.46 [facility] Comment on above: Performed By: #### 2 066924 ####[facility] [address] [place] [address] Eosinophils/100 leukocytes 0.8 % Normal 0.0-6.7 [facility] Comment on above: Performed By: #### 2 917857 ####[facility] [address] [place] [address] Erythrocyte distribution width Auto Ratio (RBC) 12.9 % Normal 12.0-15.4 [facility] Comment on above: Performed By: #### 2 990878 ####[facility] [address] [place] [address] Erythrocytes (RBC) 0.00 10*3/uL Normal [facility] Comment on above: Performed By: #### 2 [id number] ####[facility] [address] [facility] [place] [address] Erythrocytes (RBC) 0.0 /100{WBCs} Normal [facility] Comment on above: Performed By: #### 2 951501 ####[facility] [address] [facility] [place] [address] Erythrocytes (RBC) 4.70 10*6/uL Normal 4.08-6.37 [facility] Comment on above: Performed By: #### 2 503523 ####[facility] [address] [facility] [place] [address] Hematocrit (HCT) 44.9 % Normal 38.4-54.9 [facility] Comment on above: Performed By: #### 2 917317 ####[facility] [address] [place] [address] Hemoglobin mass conc (Bld) 14.9 g/dL Normal 12.8-17.7 [facility] Comment on above: Performed By: #### 2 922932 ####[facility] [address] [place] [address] Imm Grans Absolute 0.10 10*3/uL Normal 0.00-0.21 [facility] Comment on above: Performed By: #### 2 [id number] ####[facility] [address] [place] [address] Immature granulocytes #/vol (Bld) 0.6 % Normal [facility] Comment on above: Performed By: #### 2 688898 ####[address] [place] [address] Lymphocytes 1.76 10*3/uL Normal 0.40-2.84 [facility] Comment on above: Performed By: #### 2 [id number] ####[address] [address] Lymphocytes/100 leukocytes 11.1 % Normal 9.4-41.1 [facility] Comment on above: Performed By: #### 2 297586 ####[address] [place] [address] MCH 31.7 pg Normal 27.5-32.9 [facility] Comment on above: Performed By: #### 2 825417 ####[facility] [address] [place] [address] MCHC mass conc (RBC) 33.2 g/dL Normal 30.5-35.4 [facility] Comment on above: Performed By: #### 2 404125 ####[facility] [address] [place] [address] MCV 95.5 fL Normal 83.3-98.2 [facility] Comment on above: Performed By: #### 2 882841 ####[facility] [address] [place] [address] Monocytes 0.51 10*3/uL Normal 0.25-1.33 [facility] Comment on above: Performed By: #### 2 040940 ####[facility] [address] [place] [address] Monocytes/100 leukocytes 3.2 % Normal 3.0-16.2 [facility] Comment on above: Performed By: #### 2 137314 ####[facility] [address] [place] [address] Neutrophils 13.33 10*3/uL High 2.22-7.53 [facility] Comment on above: Performed By: #### 2 543323 ####[facility] [address] [place] [address] Neutrophils/100 leukocytes 84.0 % High 46.2-79.1 [facility] Comment on above: Performed By: #### 2 379611 ####[facility] [address] [place] [address] Platelet mean volume (PMV) 10.0 fL Normal 9.9-12.1 [facility] Comment on above: Performed By: #### 2 046682 ####[facility] [address] [place] [address] Platelets 305 10*3/uL Normal 155-404 [facility] Comment on above: Performed By: #### 2 076186 ####[facility] [address] [facility] [place] [address] RDW SD 45.8 fL Normal 39.3-48.6 [facility] Comment on above: Performed By: #### 2 668475 ####[facility] [address] [place] [address] WBC (Leukocytes) 15.9 10*3/uL High 4.2-11.0 [facility] Comment on above: Performed By: #### 2 159652 ####[facility] [address] [facility] [place] [address] CHEST SINGLE VIEW [place] PA [place] APon 04-26-2017 CHEST SINGLE VIEW PORT PA OR AP DATE OF EXAM: Apr 26 2017 6:59PMCLINICAL HISTORY/ Name: CASTILLO BRENNAN:CHEST SINGLE VIEW PORT PA OR AP; 04/26/2017 6:59 pmINDICATION:. Altered mental status. Stroke-like symptoms.COMPARISON:ACCESS ION NUMBER(S):[id number] NG CLINICIAN:ANA SIMPSON:A portable radiograph of the chest is performed.FINDINGS:The heart is of normal size and contour. The pulmonary vessels are within normal limits. The lungs and the pleural spaces are clear. There is no pneumothorax. The osseous structures are intact.CONCLUSION: IMPRESSION:No sign of acute cardiopulmonary disease. Normal [facility] CKMBon 04-26-2017 CKMB 1.3 ng/mL Normal [facility] Comment on above: Result Comment: CKMB <7 AND CKMBI <4% :NEGATIVECKMB <7 AND CKMBI >4% :EQUIVOCALCKMB >=7 AND CKMBI <4% :EQUIVOCALCKMB >=7 AND CKMBI >4% :POSITIVE Performed By: #### 1 [id number] ####[facility] [address] [place] [address] CKMB Indexon 04-26-2017 CKMB 1.6 % Normal [facility] Comment on above: Performed By: #### 2 015643 ####[facility] [address] [place] [address] CT BRAIN ATTACK W/O CONTRAST on 04-26-2017 CT BRAIN ATTACK W/O CONTRAST DATE OF EXAM: Apr 26 2017 2:33PMCLINICAL HISTORY/ Name: REA BRENNANTUDY:CT BRAIN ATTACK W/O CONTRAST; 04/26/2017 2:33 pmINDICATION:Brain Attack.COMPARISON:None.[facility] ESSION NUMBER(S):[id number] NG CLINICIAN:LUZ MARIA KEYES:Noncontra st axial CT scan of head was performed. Angled reformats in brain and bone windows were generated. The images were reviewed in bone, brain, blood and soft tissue windows.FINDINGS:CSF Spaces: The ventricles, sulci and basal cisterns are within normal limits.Parenchyma: There is a focus of encephalomalacia in the high right parietal lobe likely related to remote infarct or conceivably trauma. The ferrer-white differentiation is intact. There is no mass effect or midline shift. There is no extraaxial fluid collection. 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 SeizureCOMPARISON:04/26/19 18 at 2:23 p.m. NG CLINICIAN:ANA NÑUEZQUE:Noncontras t axial CT scan of head was performed. Angled reformats in brain and bone windows were generated. The images were reviewed in bone, brain, blood and soft tissue windows.FINDINGS:CSF Spaces: There is mild ex vacuo dilation of the posterior horn of the right lateral ventricle. The ventricles and sulci are otherwise within normal limits.Parenchyma: Stable focus of encephalomalacia within the right parietal lobe. The ferrer-white differentiation is otherwise intact. There is no mass effect or midline shift. There is no extraaxial fluid collection. There is no intracranial hemorrhage.Calvarium: The calvarium is unremarkable.Paranasal sinuses and mastoids: Visualized paranasal sinuses and mastoids are clear.CONCLUSION: IMPRESSION:No acute intracranial hemorrhage or mass effect.Stable encephalomalacia within the right parietal lobe. Normal [facility] Comprehensive Metabolic Pane margarita 04-26-2017 Alanine aminotransferase (ALT) 12 U/L Normal 10-52 [facility] Comment on above: Performed By: #### 1 [id number] ####[facility] [address] [place] [address] Albumin 4.2 g/dL Normal 3.4-5.0 [facility] Comment on above: Performed By: #### 1 081601 ####[facility] [address] [place] [address] Albumin/Globulin Ratio 1.7 {ratio} Normal 0.9-2.4 Healthcare Comment on above: Performed By: #### 1 686766 ####[facility] [address] [place] [address] Alkaline phosphatase (ALP) 93 U/L Normal 45-117 [facility] Comment on above: Performed By: #### 1 403337 ####[facility] [address] [place] [address] Anion gap 11 mmol/L Normal 10-20 [facility] Comment on above: Performed By: #### 1 003187 ####[facility] [address] [place] [address] Aspartate aminotransferase (AST) 15 U/L Normal 13-39 [facility] Comment on above: Performed By: #### 1 969123 ####[facility] [address] [place] [address] Bicarbonate (HCO3) 28 mmol/L Normal 21-32 [facility] Comment on above: Performed By: #### 1 737090 ####[facility] [address] [place] [address] Bilirubin (total) 0.6 mg/dL Normal 0.0-1.2 [facility] Comment on above: Performed By: #### 1 268265 ####[facility] [address] [place] [address] BUN/Creatinine Ratio 14 mg/mg Normal 5-25 [facility] Comment on above: Performed By: #### 1 154204 ####[facility] [address] [place] [address] Calcium 8.9 mg/dL Normal 8.6-10.3 [facility] Comment on above: Performed By: #### 1 667980 ####[facility] [address] [place] [address] Chloride 101 mmol/L Normal 98-107 [facility] Comment on above: Performed By: #### 1 531174 ####[facility] [address] [place] [address] Creatinine 0.92 mg/dL Normal 0.50-1.30 [facility] Comment on above: Performed By: #### 1 407061 ####[facility] [address] [place] [address] eGFR (MDRD) mL/min/{1.73_m2} Normal [facility] Comment on above: Result Comment: Inte rpretation for Chronic Kidney Disease:Stages 1&2 >60 Healthy or potential kidney damage.Mild decrease of GFR.Stage 3 30-59 Moderate decrease of GFR.Stage 4 15-29 Severe decrease of GFR.Stage 5 <15 Kidney failure or on dialysis.Corrected; previously reported as >60 Race is unknown or not prcalculated asnon-. Please interpret with caution.Interpretation for Chronic Kidney Disease:Stages 1&2 >60 Healthy or potential kidney damage.Mild decrease of GFR.Stage 3 30-59 Moderate decrease of GFR.Stage 4 15-29 Severe decrease of GFR.Stage 5 <15 Kidney failure or on dialysis. on 04/26/17 at Performed By: #### 1 178348 ####[facility] [address] [place] [address] Glucose mass conc 234 mg/dL High 70-100 [facility] Comment on above: Performed By: #### 1 052391 ####[facility] [address] [place] [address] Potassium molar conc 3.8 mmol/L Normal 3.5-5.1 [facility] Comment on above: Performed By: #### 1 026515 ####[facility] [address] [place] [address] Protein 6.7 g/dL Normal 6.4-8.2 [facility] Comment on above: Performed By: #### 1 375296 ####[facility] [address] [place] [address] Sodium 136 mmol/L Normal 136-145 [facility] Comment on above: Performed By: #### 1 631545 ####[facility] [address] [place] [address] Urea nitrogen 13 mg/dL Normal 6-23 [facility] Comment on above: Performed By: #### 1 508319 ####[facility] [address] [place] [address] Creatine Kinaseon 04-26-2017 Creatine kinase (CK) 82 U/L Normal 0-325 [facility] Comment on above: Performed By: #### 1 785050 ####[facility] [address] [place] [address] Drugs of Abuse, Urine(7)on 0 04-26-2017 Amphetamines/Metamphe tamines, Urine Not Detected Normal [facility] Comment on above: Performed By: #### 2 688886 ####[facility] [address] [place] [address] Barbiturates, Urine Not Detected Normal [facility] Comment on above: Performed By: #### 2 443649 ####[facility] [address] [place] [address] Benzodiazepines, Urine Not Detected Normal [facility] Comment on above: Performed By: #### 2 180089 ####[facility] [address] [place] [address] Cannabinoids, Urine Not Detected Normal [facility] Comment on above: Performed By: #### 2 796195 ####[facility] [address] [place] [address] Cocaine, Urine Not Detected Normal [facility] Comment on above: Performed By: #### 2 320352 ####[facility] [address] [place] [address] Methadone, Urine Not Detected Normal [facility] Comment on above: Performed By: #### 2 310344 ####[facility] [address] [place] [address] Opiates, Urine Not Detected Normal [facility] Comment on above: Performed By: #### 2 157808 ####[facility] [address] [place] [address] PCP, Urine Not Detected Normal [facility] Comment on above: Result Comment: Urin e toxicology screen results are to be used for medicalpurposes only. It is recommended that any result reportedas Detected be confirmed by a more specific alternativechemical method.Drug Analyzed Cutoff Concentration(ng/mL)Barbiturates 200Benzodiazepines 200Cocaine 150Opiates 300Amphetamines 500Cannabinoids 50Methadone 150PCP 25 Performed By: #### 2 865445 ####[facility] [address] [place] [address] Glucose, WB POCon 04-26-2017 Glucose mass conc 271 mg/dL High 70-100 [facility] Comment on above: Performed By: #### 2 731000 ####[facility] [address] [place] [address] Glucose mass conc 255 mg/dL High 70-100 [facility] Comment on above: Result Comment: Noti fy Physician Performed By: #### 1 075506 ####[facility] [address] [place] [address] Keppra (Levetiracetam)on Acetaminophen mass conc <2 Low 12-46 [facility] Comment on above: Result Comment: INTE RPRETIVE INFORMATION: Keppra (Levetiracetam)Therapeutic Range: 12-46 ug/mLToxic: Not well EstablishedPharmacokinetics of levetiracetam are affected by renalfunction. Adverse effects may include somnolence, weakness,headache and vomiting.Performed by [employer],[address] [place] [id number] mnf.Delivery Agent, Sumeet Nichols MD - Lab. Director Performed By: #### 1 [id number] ####[facility] [address] [place] [address] Magnesiumon 04-26-2017 Magnesium 1.9 mg/dL Normal 1.6-2.4 [facility] Comment on above: Performed By: #### 2 [id number] ####[facility] [address] [place] [address] Partial Thromboplastin Timeo n 04-26-2017 aPTT 26.7 s Normal 22.1-35.3 [facility] Comment on above: Result Comment: Hepa rin Therapeutic Range: 71 - 97 sec Performed By: #### 3 [id number] ####[facility] [address] [place] [address] Phenytoinon 04-26-2017 Phenytoin ug/mL Low 10.0-20.0 [facility] Healthcare Comment on above: Performed By: #### 2 [id number] ####[facility] [address] [place] [address] Prothrombin Timeon 8 INR Coag RelTime (PPP) 1.00 {INR} Normal 0.85-1.16 [facility] Healthcare Comment on above: Result Comment: Coum patel Therapy:1.5 - 2.0 Low Intensity Therapy2.0 - 3.0 Moderate Intensity Therapy2.5 - 3.5 High (1) Intensity Therapy3.0 - 4.0 High (2) Intensity Therapy Performed By: #### 3 [id number] ####[id number] [place] [address] Prothrombin time (PT) Coag time (PPP) 13.1 s Normal 11.3-14.5 [facility] Healthcare Comment on above: Performed By: #### 3 [id number] ####[facility] [address] [place] [address] Troponinon 04-26-2017 Troponin I.cardiac mass conc ng/mL Normal 0.000-0.040 [facility] Comment on above: Result Comment: <0.0 4 : Negative0.04 - 0.50 : Possible Cardiac Damage>0.50 : Consistent with Cardiac Damage Performed By: #### 1 [id number] ####[facility] [address] [place] [address] Urinalysis with Reflex Cultu reon 04-26-2017 Ascorbic Acid Negative Normal Negative [facility] Comment on above: Performed By: #### 2 [id number] ####[facility] [address] [place] [address] Automated Urine Microscopy Performed Normal [facility] Comment on above: Performed By: #### 2 [id number] ####[facility] [address] [place] [address] Bilirubin Ql (U) Negative Normal Negative [facility] Healthcare Comment on above: Performed By: #### 2 [id number] ####[facility] [address] [place] [address] Blood Small Abnormal Negative [facility] Comment on above: Performed By: #### 2 [id number] ####[facility] [address] [place] [address] Erythrocytes (RBC) 11 /[HPF] Normal 0-3 [facility] Comment on above: Performed By: #### 2 [id number] ####[facility] [address] [place] [address] Glucose mass conc 50 mg/dL Abnormal Negative [facility] Comment on above: Performed By: #### 2 [id number] ####[facility] [address] [place] [address] Mucous Rare Normal None [facility] Comment on above: Performed By: #### 2 [id number] ####[facility] [address] [place] [address] Protein Negative Normal Negative [facility] Comment on above: Performed By: #### 2 [id number] ####[facility] [address] [place] [address] Urine, appearance Clear Normal Clear [facility] Comment on above: Performed By: #### 2 [id number] ####[facility] [address] [place] [address] Urine, color Yellow Normal [facility] Comment on above: Performed By: #### 2 [id number] ####[facility] [address] [place] [address] Urine, ketones presence Negative Normal Negative [facility] Comment on above: Performed By: #### 2 [id number] ####[facility] [address] [place] [address] Urine, nitrite presence Negative Normal Negative [facility] Comment on above: Performed By: #### 2 [id number] ####[facility] [address] [place] [address] Urine, pH 6.0 [pH] Normal 5.0-9.0 [facility] Comment on above: Performed By: #### 2 [id number] ####[facility] [address] [place] [address] Urine, specific gravity 1.017 Normal 1.003-1.035 [facility] Comment on above: Performed By: #### 2 [id number] ####[facility] [address] [place] [address] Urine, squamous cells in sediment /[HPF] Normal 0-5 [facility] Comment on above: Performed By: #### 2 [id number] ####[facility] [address] [facility] [place] [address] Urine, urobilinogen <2.0 Normal Negative [facility] Comment on above: Performed By: #### 2 [id number] ####[facility] [address] [place] [address] WBC (Leukocytes) 1 /[HPF] Normal 0-5 [facility] Comment on above: Performed By: #### 2 [id number] ####[facility] [address] [place] [address] WBC (Leukocytes) Negative Normal Negative [facility] Comment on above: Performed By: #### 2 [id number] ####[facility] [address] [place] [address] ECG B/O WO INTERP (MED OFFIC E) [facility] Influenza virus A and B and SARS-CoV-2 (COVID-19) Ag panel - Upper respiratory specim SARS-CoV-2 & FLU Antigen (Rapid) Influenzae A [facility] Work Phone: Vital Signs Date Time Vital Sign Value Performing Clinician Facility 10-18-2024 13:35-0400 Body height 173.[address] Parish Graff DO Work Phone: [facility] 10-18-2024 13:35-0400 Body mass index (BMI) [Ratio] 20.2 kg/m2 Dr. Parish Graff DO Work Phone: [facility] 10-18-2024 13:35-0400 Body temperature 98 [degF] Dr. Parish Graff DO Work Phone: [facility] 10-18-2024 13:35-0400 Body weight 61.[address] Parish Graff DO Work Phone: [facility] 10-18-2024 13:35-0400 Diastolic blood pressure 63 mm[Hg] Dr. Parish Graff DO Work Phone: [facility] 10-18-2024 13:35-0400 Heart rate 45 /min Dr. Parish Graff DO Work Phone: [facility] 10-18-2024 13:35-0400 Respiratory rate 16 /min Dr. Parish Graff DO Work Phone: [facility] 10-18-2024 13:35-0400 SaO2% (BldA) [Mass fraction] 100 % Dr. Parish Graff DO Work Phone: [facility] 10-18-2024 13:35-0400 Systolic blood pressure 106 mm[Hg] Dr. Parish Graff DO Work Phone: [facility] 10-12-2024 14:42-0400 Body height 173.[address] Parish Graff DO Work Phone: [facility] 10-12-2024 14:42-0400 Body mass index (BMI) [Ratio] 20.2 kg/m2 Dr. Parish Graff DO Work Phone: [facility] 10-12-2024 14:42-0400 Body weight 61.[address] Parish Graff DO Work Phone: [facility] 10-12-2024 14:42-0400 Diastolic blood pressure 66 mm[Hg] Dr. Parish Graff DO Work Phone: [facility] 10-12-2024 14:42-0400 Heart rate 76 /min Dr. Parish Graff DO Work Phone: [facility] 10-12-2024 14:42-0400 Respiratory rate 18 /min Dr. Parish Graff DO Work Phone: [facility] 10-12-2024 14:42-0400 SaO2% (BldA) [Mass fraction] 93 % Dr. Parish Graff DO Work Phone: [facility] 10-12-2024 14:42-0400 Systolic blood pressure 101 mm[Hg] Dr. Parish Graff DO Work Phone: [facility] 08-04-2024 15:56-0400 Diastolic Blood Pressure Non-Invasive 56 mm[Hg] DR FRANK GUILLERMO DO [facility] 08-04-2024 15:56-0400 Heart rate 58 /min DR FRANK GUILLERMO DO [facility] 08-04-2024 15:56-0400 Reason For Taking VItal Signs DR FRANK GUILLERMO DO [facility] 08-04-2024 15:56-0400 Respiratory rate 16 /min DR FRANK GUILLERMO DO [facility] 08-04-2024 15:56-0400 Systolic Blood Pressure Non-Invasive 112 mm[Hg] DR FRANK GUILLERMO DO [facility] 08-04-2024 14:12-0400 Diastolic Blood Pressure Non-Invasive 65 mm[Hg] DR FRANK GUILLERMO DO [facility] 08-04-2024 14:12-0400 Heart rate 56 /min DR FRANK GUILLERMO DO [facility] 08-04-2024 14:12-0400 Reason For Taking VItal Signs DR FRANK GUILLERMO DO [facility] 08-04-2024 14:12-0400 Respiratory rate 16 /min DR FRANK GUILLERMO DO [facility] 08-04-2024 14:12-0400 Systolic Blood Pressure Non-Invasive 110 mm[Hg] DR FRANK GUILLERMO DO [facility] 08-04-2024 13:17-0400 Body temperature 98.24 [degF] DR FRANK GUILLERMO DO [facility] 08-04-2024 13:17-0400 Body weight 62.[address] FRANK GUILLERMO DO [facility] 08-04-2024 13:17-0400 Diastolic Blood Pressure Non-Invasive 40 mm[Hg] DR FRANK GUILLERMO DO [facility] 08-04-2024 13:17-0400 Heart rate 60 /min DR FRANK GUILLERMO DO [facility] 08-04-2024 13:17-0400 Respiratory rate 18 /min DR FRANK GUILLERMO DO [facility] 08-04-2024 13:17-0400 Systolic Blood Pressure Non-Invasive 136 mm[Hg] DR FRANK GUILLERMO DO [facility] 07-17-2024 12:49-0400 Body mass index (BMI) [Ratio] 20.9 kg/m2 Dr. Parish Graff DO Work Phone: [facility] 07-17-2024 12:49-0400 Body temperature 97.3 [degF] Dr. Parish Graff DO Work Phone: [facility] 07-17-2024 12:49-0400 Body weight 63.[address] Parish Graff DO Work Phone: [facility] 07-17-2024 12:49-0400 Diastolic blood pressure 60 mm[Hg] Dr. Parish Graff DO Work Phone: [facility] 07-17-2024 12:49-0400 Heart rate 55 /min Dr. Parish Graff DO Work Phone: [facility] 07-17-2024 12:49-0400 Respiratory rate 20 /min Dr. Parish Graff DO Work Phone: [facility] 07-17-2024 12:49-0400 SaO2% (BldA) [Mass fraction] 96 % Dr. Parish Graff DO Work Phone: [facility] 07-17-2024 12:49-0400 Systolic blood pressure 103 mm[Hg] Dr. Parish Graff DO Work Phone: [facility] 07-10-2024 07:52-0400 Body mass index (BMI) [Ratio] 20.9 kg/m2 Dr. Parish Graff DO Work Phone: [facility] 07-10-2024 07:52-0400 Body temperature 96.6 [degF] Dr. Parish Graff DO Work Phone: [facility] 07-10-2024 07:52-0400 Body weight 63.[address] Parish Graff DO Work Phone: [facility] 07-10-2024 07:52-0400 Diastolic blood pressure 63 mm[Hg] Dr. Parish Graff DO Work Phone: [facility] 07-10-2024 07:52-0400 Heart rate 51 /min Dr. Parish Graff DO Work Phone: [facility] 07-10-2024 07:52-0400 Respiratory rate 18 /min Dr. Parish Graff DO Work Phone: [facility] 07-10-2024 07:52-0400 SaO2% (BldA) [Mass fraction] 98 % Dr. Parish Graff DO Work Phone: [facility] 07-10-2024 07:52-0400 Systolic blood pressure 106 mm[Hg] Dr. Parish Graff DO Work Phone: [facility] 02-27-2024 12:01-0500 Diastolic Blood Pressure Non-Invasive 62 mm[Hg] JOHN MATUTE MD [facility] 02-27-2024 12:01-0500 Heart rate 57 /min JOHN MATUTE MD [facility] 02-27-2024 12:01-0500 Respiratory rate 14 /min JOHN MATUTE MD [facility] 02-27-2024 12:01-0500 Systolic Blood Pressure Non-Invasive 112 mm[Hg] JOHN MATUTE MD [facility] 02-27-2024 11:57-0500 Diastolic Blood Pressure Non-Invasive 64 mm[Hg] JOHN MATUTE MD [facility] 02-27-2024 11:57-0500 Heart rate 60 /min JOHN MATUTE MD [facility] 02-27-2024 11:57-0500 Respiratory rate 17 /min JOHN MATUTE MD [facility] 02-27-2024 11:57-0500 Systolic Blood Pressure Non-Invasive 93 mm[Hg] JOHN MATUTE MD [facility] 02-27-2024 11:51-0500 Diastolic Blood Pressure Non-Invasive 60 mm[Hg] JOHN MATUTE MD [facility] 02-27-2024 11:51-0500 Heart rate 59 /min JOHN MATUTE MD [facility] 02-27-2024 11:51-0500 Respiratory rate 15 /min JOHN MATUTE MD [facility] 02-27-2024 11:51-0500 Systolic Blood Pressure Non-Invasive 91 mm[Hg] JOHN MATUTE MD [facility] 02-27-2024 11:36-0500 Body temperature 97.7 [degF] JOHN MATUTE MD [facility] 02-27-2024 11:25-0500 Respiratory Rate - Anes 12 br/min JOHN MATUTE MD [facility] 02-27-2024 11:20-0500 Respiratory Rate - Anes 12 br/min JOHN MATUTE MD [facility] 02-27-2024 11:15-0500 Respiratory Rate - Anes 12 br/min JOHN MATUTE MD [facility] 02-27-2024 08:56-0500 Body height 173 cm JOHN MATUTE MD [facility] 02-27-2024 08:56-0500 Body temperature 98.42 [degF] JOHN MATUTE MD [facility] 02-27-2024 08:56-0500 Body weight 173 kg JOHN MATUTE MD [facility] 02-27-2024 08:56-0500 Heart rate 66 /min JOHN MATUTE MD [facility] 02-23-2024 11:02-0500 Body height 172.7 cm JOHN MATUTE MD [facility] 02-23-2024 11:02-0500 Body weight 62 kg JOHN MATUTE MD [facility] 01-26-2024 14:34-0400 Body height 174 cm Nilesh Olivas MD Work Phone: [facility] 01-26-2024 14:34-0400 Body mass index (BMI) [Ratio] 20.68 kg/m2 Nilesh Olivas MD Work Phone: [facility] 01-26-2024 14:34-0400 Body weight 62.6 kg Nilesh Olivas MD Work Phone: [facility] 01-26-2024 14:34-0400 Diastolic blood pressure 70 mm[Hg] Nilesh Olivas MD Work Phone: [facility] 01-26-2024 14:34-0400 Heart rate 53 /min Nilesh Olivas MD Work Phone: [facility] 01-26-2024 14:34-0400 SaO2% (BldA) [Mass fraction] 97 % Nilesh Olivas MD Work Phone: [facility] 01-26-2024 14:34-0400 Systolic blood pressure 110 mm[Hg] Nilesh Olivas MD Work Phone: [facility] 05-23-2023 20:28-0500 Body temperature 97.4 [degF] Dr. Radha Quintero Work Phone: [facility] 05-23-2023 20:28-0500 Diastolic blood pressure 59 mm[Hg] Dr. Radha Quintero Work Phone: [facility] 05-23-2023 20:28-0500 Heart rate 57 /min Dr. Radha Quintero Work Phone: [facility] 05-23-2023 20:28-0500 Respiratory rate 12 /min Dr. Radha Quintero Work Phone: [facility] 05-23-2023 20:28-0500 SaO2% (BldA) [Mass fraction] 99 % Dr. Radha Quintero Work Phone: [facility] 05-23-2023 20:28-0500 Systolic blood pressure 112 mm[Hg] Dr. Radha Quintero Work Phone: [facility] 05-23-2023 17:01-0500 Body height 180.[address] Radha Quintero Work Phone: [facility] 05-23-2023 17:01-0500 Body mass index (BMI) [Ratio] 20.6 kg/m2 Dr. Radha Quintero Work Phone: [facility] 05-23-2023 17:01-0500 Body weight 67.[address] Radha Quintero Work Phone: [facility] 03-10-2023 08:32-0500 Body mass index (BMI) [Ratio] 19.9 kg/m2 Dr. Radha Quintero Work Phone: [facility] 03-10-2023 08:32-0500 Body temperature 97.4 [degF] Dr. Radha Quintero Work Phone: [facility] 03-10-2023 08:32-0500 Body weight 64.[address] Radha Quintero Work Phone: [facility] 03-10-2023 08:32-0500 Diastolic blood pressure 65 mm[Hg] Dr. Radha Quintero Work Phone: [facility] 03-10-2023 08:32-0500 Heart rate 64 /min Dr. Radha Quintero Work Phone: [facility] 03-10-2023 08:32-0500 Respiratory rate 20 /min Dr. Radha Quintero Work Phone: [facility] 03-10-2023 08:32-0500 SaO2% (BldA) [Mass fraction] 97 % Dr. Radha Quintero Work Phone: [facility] 03-10-2023 08:32-0500 Systolic blood pressure 109 mm[Hg] Dr. Radha Quintero Work Phone: [facility] 02-27-2023 17:07-0500 Diastolic blood pressure 84 mm[Hg] Dr. Radha Quintero Work Phone: [facility] 02-27-2023 17:07-0500 Heart rate 65 /min Dr. Radha Quintero Work Phone: [facility] 02-27-2023 17:07-0500 Respiratory rate 20 /min Dr. Radha Quintero Work Phone: [facility] 02-27-2023 17:07-0500 SaO2% (BldA) [Mass fraction] 100 % Dr. Radha Quintero Work Phone: [facility] 02-27-2023 17:07-0500 Systolic blood pressure 113 mm[Hg] Dr. Radha Quintero Work Phone: [facility] 02-27-2023 13:58-0500 Body height 180.[address] Radha Quintero Work Phone: [facility] 02-27-2023 13:58-0500 Body temperature 98 [degF] Dr. Radha Quintero Work Phone: [facility] 12-30-2022 09:04-0400 Body height 172.[address] Radha Quintero Work Phone: [facility] 12-30-2022 09:04-0400 Body mass index (BMI) [Ratio] 20.9 kg/m2 Dr. Radha Quintero Work Phone: [facility] 12-30-2022 09:04-0400 Body temperature 97.6 [degF] Dr. Radha Quintero Work Phone: [facility] 12-30-2022 09:04-0400 Body weight 62.[address] Radha Quintero Work Phone: [facility] 12-30-2022 09:04-0400 Diastolic blood pressure 68 mm[Hg] Dr. Radha Quintero Work Phone: [facility] 12-30-2022 09:04-0400 Heart rate 76 /min Dr. Radha Quintero Work Phone: [facility] 12-30-2022 09:04-0400 Respiratory rate 18 /min Dr. Radha Quintero Work Phone: [facility] 12-30-2022 09:04-0400 SaO2% (BldA) [Mass fraction] 99 % Dr. Radha Quintero Work Phone: [facility] 12-30-2022 09:04-0400 Systolic blood pressure 118 mm[Hg] Dr. Radha Quintero Work Phone: [facility] 12-24-2022 13:34-0400 Body temperature 97.6 [degF] Dr. Radha Quintero Work Phone: [facility] 12-24-2022 13:34-0400 Diastolic blood pressure 72 mm[Hg] Dr. Radha Quintero Work Phone: [facility] 12-24-2022 13:34-0400 Heart rate 68 /min Dr. Radha Quintero Work Phone: [facility] 12-24-2022 13:34-0400 Respiratory rate 16 /min Dr. Radha Quintero Work Phone: [facility] 12-24-2022 13:34-0400 SaO2% (BldA) [Mass fraction] 96 % Dr. Radha Quintero Work Phone: [facility] 12-24-2022 13:34-0400 Systolic blood pressure 108 mm[Hg] Dr. Radha Quintero Work Phone: [facility] 12-24-2022 13:10-0400 Inhaled oxygen flow rate 2 L/min Dr. Radha Quintero Work Phone: [facility] 12-24-2022 11:25-0400 Body height 172.[address] Radha Quintero Work Phone: [facility] 12-24-2022 11:25-0400 Body mass index (BMI) [Ratio] 21.1 kg/m2 Dr. Radha Quintero Work Phone: [facility] 12-24-2022 11:25-0400 Body weight [address] Radha Quintero Work Phone: [facility] 12-09-2022 23:23-0400 Diastolic blood pressure 70 mm[Hg] Dr. Radha Quintero Work Phone: [facility] 12-09-2022 23:23-0400 Heart rate 62 /min Dr. Radha Quintero Work Phone: [facility] 12-09-2022 23:23-0400 Respiratory rate 16 /min Dr. Radha Quintero Work Phone: [facility] 12-09-2022 23:23-0400 SaO2% (BldA) [Mass fraction] 98 % Dr. Radha Quintero Work Phone: [facility] 12-09-2022 23:23-0400 Systolic blood pressure 139 mm[Hg] Dr. Radha Quintero Work Phone: [facility] 12-09-2022 20:10-0400 Body height 172.[address] Radha Quintero Work Phone: [facility] 12-09-2022 20:10-0400 Body mass index (BMI) [Ratio] 22.4 kg/m2 Dr. Radha Quintero Work Phone: [facility] 12-09-2022 20:10-0400 Body temperature 98.4 [degF] Dr. Radha Quintero Work Phone: [facility] 12-09-2022 20:10-0400 Body weight 66.[address] Radha Quintero Work Phone: [facility] 11-29-2022 06:54-0400 Body mass index (BMI) [Ratio] 20.8 kg/m2 Dr. Radha Quintero Work Phone: [facility] 11-29-2022 06:54-0400 Body temperature 97.7 [degF] Dr. Radha Quintero Work Phone: [facility] 11-29-2022 06:54-0400 Body weight 62.[address] Radha Quintero Work Phone: [facility] 11-29-2022 06:54-0400 Diastolic blood pressure 74 mm[Hg] Dr. Radha Quintero Work Phone: [facility] 11-29-2022 06:54-0400 Heart rate 56 /min Dr. Radha Quintero Work Phone: [facility] 11-29-2022 06:54-0400 Respiratory rate 18 /min Dr. Radha Quintero Work Phone: [facility] 11-29-2022 06:54-0400 SaO2% (BldA) [Mass fraction] 97 % Dr. Radha Quintero Work Phone: [facility] 11-29-2022 06:54-0400 Systolic blood pressure 105 mm[Hg] Dr. Radha Quintero Work Phone: [facility] 11-18-2022 14:37-0400 Body mass index (BMI) [Ratio] 20.8 kg/m2 Dr. Radha Quintero Work Phone: [facility] 11-18-2022 14:37-0400 Body temperature 98.6 [degF] Dr. Radha Quintero Work Phone: [facility] 11-18-2022 14:37-0400 Body weight 62.[address] Radha Quintero Work Phone: [facility] 11-18-2022 14:37-0400 Diastolic blood pressure 66 mm[Hg] Dr. Radha Quintero Work Phone: [facility] 11-18-2022 14:37-0400 Heart rate 61 /min Dr. Radha Quintero Work Phone: [facility] 11-18-2022 14:37-0400 Respiratory rate 16 /min Dr. Radha Quintero Work Phone: [facility] 11-18-2022 14:37-0400 SaO2% (BldA) [Mass fraction] 96 % Dr. Radha Quintero Work Phone: [facility] 11-18-2022 14:37-0400 Systolic blood pressure 100 mm[Hg] Dr. Radha Quintero Work Phone: [facility] 11-10-2022 18:49-0400 Diastolic blood pressure 72 mm[Hg] Dr. Radha Quintero Work Phone: [facility] 11-10-2022 18:49-0400 Heart rate 69 /min Dr. Radha Quintero Work Phone: [facility] 11-10-2022 18:49-0400 Respiratory rate 17 /min Dr. Radha Quintero Work Phone: [facility] 11-10-2022 18:49-0400 SaO2% (BldA) [Mass fraction] 94 % Dr. Radha Quintero Work Phone: [facility] 11-10-2022 18:49-0400 Systolic blood pressure 103 mm[Hg] Dr. Radha Quintero Work Phone: [facility] 11-10-2022 15:33-0400 Body height 172.[address] Radha Quintero Work Phone: [facility] 11-10-2022 15:33-0400 Body mass index (BMI) [Ratio] 20.7 kg/m2 Dr. Radha Quintero Work Phone: [facility] 11-10-2022 15:33-0400 Body temperature 97.6 [degF] Dr. Radha Quintero Work Phone: [facility] 11-10-2022 15:33-0400 Body weight [address] Radha Quintero Work Phone: [facility] 11-02-2022 13:21-0400 Body temperature 98.5 [degF] Dr. Radha Quintero Work Phone: [facility] 11-02-2022 13:21-0400 Diastolic blood pressure 65 mm[Hg] Dr. Radha Quintero Work Phone: [facility] 11-02-2022 13:21-0400 Heart rate 79 /min Dr. Radha Quintero Work Phone: [facility] 11-02-2022 13:21-0400 Respiratory rate 16 /min Dr. Radha Quintero Work Phone: [facility] 11-02-2022 13:21-0400 SaO2% (BldA) [Mass fraction] 98 % Dr. Radha Quintero Work Phone: [facility] 11-02-2022 13:21-0400 Systolic blood pressure 106 mm[Hg] Dr. Radha Quintero Work Phone: [facility] 11-02-2022 01:44-0400 Body weight 60.[address] Radha Quintero Work Phone: [facility] 11-02-2022 01:37-0400 Body temperature 98.1 [degF] Dr. Radha Quintero Work Phone: [facility] 11-02-2022 01:37-0400 Diastolic blood pressure 64 mm[Hg] Dr. Radha Quintero Work Phone: [facility] 11-02-2022 01:37-0400 Heart rate 61 /min Dr. Radha Quintero Work Phone: [facility] 11-02-2022 01:37-0400 Respiratory rate 12 /min Dr. Radha Quintero Work Phone: [facility] 11-02-2022 01:37-0400 SaO2% (BldA) [Mass fraction] 97 % Dr. Radha Quintero Work Phone: [facility] 11-02-2022 01:37-0400 Systolic blood pressure 109 mm[Hg] Dr. Radha Quintero Work Phone: [facility] 11-01-2022 21:50-0400 Inhaled oxygen flow rate 2 L/min Dr. Radha Quintero Work Phone: [facility] 11-01-2022 21:07-0400 Body height 175.[address] Radha Quintero Work Phone: [facility] 11-01-2022 21:07-0400 Body mass index (BMI) [Ratio] 22.1 kg/m2 Dr. Radha Quintero Work Phone: [facility] 11-01-2022 21:07-0400 Body weight 67.[address] Radha Quintero Work Phone: [facility] 10-20-2022 22:21-0400 Diastolic blood pressure 89 mm[Hg] Dr. Radha Quintero Work Phone: [facility] 10-20-2022 22:21-0400 Heart rate 64 /min Dr. Radha Quintero Work Phone: [facility] 10-20-2022 22:21-0400 Respiratory rate 17 /min Dr. Radha Quintero Work Phone: [facility] 10-20-2022 22:21-0400 SaO2% (BldA) [Mass fraction] 99 % Dr. Radha Quintero Work Phone: [facility] 10-20-2022 22:21-0400 Systolic blood pressure 127 mm[Hg] Dr. Radha Quintero Work Phone: [facility] 10-20-2022 20:16-0400 Body height 175.[address] Radha Quintero Work Phone: [facility] 10-20-2022 20:16-0400 Body mass index (BMI) [Ratio] 21.4 kg/m2 Dr. Radha Quintero Work Phone: [facility] 10-20-2022 20:16-0400 Body temperature 97.6 [degF] Dr. Radha Quintero Work Phone: [facility] 10-20-2022 20:16-0400 Body weight 65.[address] Radha Quintero Work Phone: [facility] 09-15-2022 07:10-0400 Blood Pressure Location MADHU DENNIS MD [facility] 09-15-2022 07:10-0400 Blood Pressure Method MADHU DENNIS MD [facility] 09-15-2022 07:10-0400 Body temperature 97.88 [degF] MADHU DENNIS MD [address] [place] [address] 09-15-2022 07:10-0400 Diastolic Blood Pressure Non-Invasive 62 1 MADHU DENNIS MD [facility] 09-15-2022 07:10-0400 Heart rate 56 /min MADHU DENNIS MD [address] [place] [address] 09-15-2022 07:10-0400 Mean blood pressure 78 mm[Hg] MADHU DENNIS MD [facility] 09-15-2022 07:10-0400 Reason For Taking VItal Signs MADHU DENNIS MD [facility] 09-15-2022 07:10-0400 Respiratory rate 19 /min MADHU DENNIS MD [facility] 09-15-2022 07:10-0400 Systolic Blood Pressure Non-Invasive 111 1 MADHU DENNIS MD [facility] 09-15-2022 02:58-0400 Body temperature 97.88 [degF] MADHU DENNIS MD [facility] 09-15-2022 02:58-0400 Diastolic Blood Pressure Non-Invasive 56 1 MADHU DENNIS MD [facility] 09-15-2022 02:58-0400 Heart rate 66 /min MADHU DENNIS MD [address] [place] [address] 09-15-2022 02:58-0400 Reason For Taking VItal Signs MADHU DENNIS MD [address] [place] [address] 09-15-2022 02:58-0400 Respiratory rate 18 /min MADHU DENNIS MD [facility] 09-15-2022 02:58-0400 Systolic Blood Pressure Non-Invasive 107 1 MADHU DENNIS MD [address] [place] [address] 09-14-2022 23:19-0400 Body temperature 98.6 [degF] MADHU DENNIS MD [address] [place] [address] 09-14-2022 23:19-0400 Diastolic Blood Pressure Non-Invasive 64 1 MADHU DENNIS MD [address] [place] [address] 09-14-2022 23:19-0400 Heart rate 66 /min MADHU DENNIS MD [address] [place] [address] 09-14-2022 23:19-0400 Respiratory rate 18 /min MADHU DENNIS MD [address] [place] [address] 09-14-2022 23:19-0400 Systolic Blood Pressure Non-Invasive 105 1 MADHU DENNIS MD [address] [place] [address] 09-14-2022 18:09-0400 Heart rate 73 /min MADHU DENNIS MD [address] [place] [address] 09-14-2022 18:09-0400 Reason For Taking VItal Signs MADHU DENNIS MD [address] [place] [address] 09-14-2022 14:41-0400 Heart rate 58 /min MADHU DENNIS MD [address] [place] [address] 09-14-2022 10:34-0400 Heart rate 57 /min MADHU DENNIS MD [address] [place] [address] 09-14-2022 07:02-0400 Heart rate 64 /min MADHU DENNIS MD [address] [place] [address] 09-13-2022 00:07-0400 Body height 182.9 cm MADHU DENNIS MD [facility] 09-13-2022 00:07-0400 Body weight 59.6 kg MADHU DENNIS MD [facility] 09-13-2022 00:07-0400 Body weight 17.82 kg/m2 MADHU DENNIS MD [facility] 09-10-2022 14:55-0400 Body temperature 97.8 [degF] Dr. Radha Quintero Work Phone: [facility] 09-10-2022 14:55-0400 Diastolic blood pressure 64 mm[Hg] Dr. Radha Quintero Work Phone: [facility] 09-10-2022 14:55-0400 Heart rate 64 /min Dr. Radha Quintero Work Phone: [facility] 09-10-2022 14:55-0400 Respiratory rate 16 /min Dr. Radha Quintero Work Phone: [facility] 09-10-2022 14:55-0400 SaO2% (BldA) [Mass fraction] 97 % Dr. Radha Quintero Work Phone: [facility] 09-10-2022 14:55-0400 Systolic blood pressure 122 mm[Hg] Dr. Radha Quintero Work Phone: [facility] 09-10-2022 12:44-0400 Body height 172.[address] Radha Quintero Work Phone: [facility] 09-10-2022 12:44-0400 Body weight 59.[address] Radha Quintero Work Phone: [facility] 09-10-2022 01:02-0400 Body mass index (BMI) [Ratio] 20 kg/m2 Dr. Radha Quintero Work Phone: [facility] 09-09-2022 14:50-0400 Body mass index (BMI) [Ratio] 21.4 kg/m2 Dr. Radha Quintero Work Phone: [facility] 09-09-2022 14:50-0400 Body temperature 98.4 [degF] Dr. Radha Quintero Work Phone: [facility] 09-09-2022 14:50-0400 Body weight 63.[address] Radha Quintero Work Phone: [facility] 09-09-2022 14:50-0400 Diastolic blood pressure 60 mm[Hg] Dr. Radha Quintero Work Phone: [facility] 09-09-2022 14:50-0400 Heart rate 64 /min Dr. Radha Quintero Work Phone: [facility] 09-09-2022 14:50-0400 Respiratory rate 16 /min Dr. Radha Quintero Work Phone: [facility] 09-09-2022 14:50-0400 SaO2% (BldA) [Mass fraction] 98 % Dr. Radha Quintero Work Phone: [facility] 09-09-2022 14:50-0400 Systolic blood pressure 98 mm[Hg] Dr. Radha Quintero Work Phone: [facility] 09-09-2022 13:48-0400 Body temperature 99.3 [degF] Dr. Radha Quintero Work Phone: [facility] 09-09-2022 13:48-0400 Heart rate 64 /min Dr. Radha Quintero Work Phone: [facility] 09-09-2022 13:48-0400 Respiratory rate 18 /min Dr. Radha Quintero Work Phone: [facility] 09-09-2022 13:48-0400 SaO2% (BldA) [Mass fraction] 96 % Dr. Radha Quintero Work Phone: [facility] 09-07-2022 15:22-0400 Body mass index (BMI) [Ratio] 21.1 kg/m2 Dr. Radha Quintero Work Phone: [facility] 09-07-2022 15:22-0400 Body weight 63.[address] Radha Quintero Work Phone: [facility] 09-07-2022 15:22-0400 Diastolic blood pressure 57 mm[Hg] Dr. Radha Quintero Work Phone: [facility] 09-07-2022 15:22-0400 Heart rate 61 /min Dr. Radha Quintero Work Phone: [facility] 09-07-2022 15:22-0400 Respiratory rate 18 /min Dr. Radha Quintero Work Phone: [facility] 09-07-2022 15:22-0400 SaO2% (BldA) [Mass fraction] 99 % Dr. Radha Quintero Work Phone: [facility] 09-07-2022 15:22-0400 Systolic blood pressure 124 mm[Hg] Dr. Radha Quintero Work Phone: [facility] 09-07-2022 08:55-0400 Body mass index (BMI) [Ratio] 20.9 kg/m2 Dr. Radha Quintero Work Phone: [facility] 09-07-2022 08:55-0400 Body temperature 99.1 [degF] Dr. Radha Quintero Work Phone: [facility] 09-07-2022 08:55-0400 Body weight 62.[address] Radha Quintero Work Phone: [facility] 09-07-2022 08:55-0400 Diastolic blood pressure 55 mm[Hg] Dr. Radha Quintero Work Phone: [facility] 09-07-2022 08:55-0400 Heart rate 78 /min Dr. Radha Quintero Work Phone: [facility] 09-07-2022 08:55-0400 Respiratory rate 16 /min Dr. Radha Quintero Work Phone: [facility] 09-07-2022 08:55-0400 SaO2% (BldA) [Mass fraction] 96 % Dr. Radha Quintero Work Phone: [facility] 09-07-2022 08:55-0400 Systolic blood pressure 93 mm[Hg] Dr. Radha Quintero Work Phone: [facility] 09-05-2022 21:41-0400 Diastolic blood pressure 73 mm[Hg] Dr. Radha Quintero Work Phone: [facility] 09-05-2022 21:41-0400 Heart rate 71 /min Dr. Radha Quintero Work Phone: [facility] 09-05-2022 21:41-0400 Respiratory rate 16 /min Dr. Radha Quintero Work Phone: [facility] 09-05-2022 21:41-0400 SaO2% (BldA) [Mass fraction] 97 % Dr. Radha Quintero Work Phone: [facility] 09-05-2022 21:41-0400 Systolic blood pressure 133 mm[Hg] Dr. Radha Quintero Work Phone: [facility] 09-05-2022 19:24-0400 Body height 172.[address] Radha Quintero Work Phone: [facility] 09-05-2022 19:24-0400 Body mass index (BMI) [Ratio] 21.9 kg/m2 Dr. Radha Quintero Work Phone: [facility] 09-05-2022 19:24-0400 Body temperature 98.2 [degF] Dr. Radha Quintero Work Phone: [facility] 09-05-2022 19:24-0400 Body weight 65.[address] Radha Quintero Work Phone: [facility] 07-15-2022 13:02-0400 Body temperature 97.4 [degF] Dr. Radha Quintero Work Phone: [facility] 07-15-2022 13:02-0400 Body weight 61.[address] Radha Quintero Work Phone: [facility] 07-15-2022 13:02-0400 Diastolic blood pressure 64 mm[Hg] Dr. Radha Quintero Work Phone: [facility] 07-15-2022 13:02-0400 Heart rate 73 /min Dr. Radha Quintero Work Phone: [facility] 07-15-2022 13:02-0400 Respiratory rate 16 /min Dr. Radha Quintero Work Phone: [facility] 07-15-2022 13:02-0400 SaO2% (BldA) [Mass fraction] 98 % Dr. Radha Quintero Work Phone: [facility] 07-15-2022 13:02-0400 Systolic blood pressure 109 mm[Hg] Dr. Radha Quintero Work Phone: [facility] 05-10-2022 15:40-0500 Body mass index (BMI) [Ratio] 21.6 kg/m2 Dr. Radha Quintero Work Phone: [facility] 05-10-2022 15:40-0500 Body temperature 98.4 [degF] Dr. Radha Quintero Work Phone: [facility] 05-10-2022 15:40-0500 Body weight 64.[address] Radha Quintero Work Phone: [facility] 05-10-2022 15:40-0500 Diastolic blood pressure 82 mm[Hg] Dr. Radha Quintero Work Phone: [facility] 05-10-2022 15:40-0500 Heart rate 68 /min Dr. Radha Quintero Work Phone: [facility] 05-10-2022 15:40-0500 Respiratory rate 16 /min Dr. Radha Quintero Work Phone: [facility] 05-10-2022 15:40-0500 SaO2% (BldA) [Mass fraction] 96 % Dr. Radha Quintero Work Phone: [facility] 05-10-2022 15:40-0500 Systolic blood pressure 140 mm[Hg] Dr. Radha Quintero Work Phone: [facility] 04-14-2022 15:36-0500 Body temperature 97.3 [degF] Dr. Radha Quintero Work Phone: [facility] Work Phone: 04-14-2022 15:36-0500 Body weight 63.[address] Radha Quintero Work Phone: [facility] Work Phone: 04-14-2022 15:36-0500 Diastolic blood pressure 67 mm[Hg] Dr. Radha Quintero Work Phone: [facility] Work Phone: 04-14-2022 15:36-0500 Heart rate 65 /min Dr. Radha Quintero Work Phone: [facility] Work Phone: 04-14-2022 15:36-0500 Respiratory rate 16 /min Dr. Radha Quintero Work Phone: [facility] Work Phone: 04-14-2022 15:36-0500 SaO2% (BldA) [Mass fraction] 92 % Dr. Radha Quintero Work Phone: [facility] Work Phone: 04-14-2022 15:36-0500 Systolic blood pressure 101 mm[Hg] Dr. Radha Quintero Work Phone: [facility] Work Phone: 04-11-2022 18:42-0500 Body temperature 98.1 [degF] Dr. Radha Quintero Work Phone: [facility] Work Phone: 04-11-2022 18:42-0500 Diastolic blood pressure 84 mm[Hg] Dr. Radha Quintero Work Phone: [facility] Work Phone: 04-11-2022 18:42-0500 Heart rate 79 /min Dr. Radha Quintero Work Phone: [facility] Work Phone: 04-11-2022 18:42-0500 Respiratory rate 16 /min Dr. Radha Quintero Work Phone: [facility] Work Phone: 04-11-2022 18:42-0500 SaO2% (BldA) [Mass fraction] 96 % Dr. Radha Quintero Work Phone: [facility] Work Phone: 04-11-2022 18:42-0500 Systolic blood pressure 106 mm[Hg] Dr. Radha Quintero Work Phone: [facility] Work Phone: 04-11-2022 15:14-0500 Body height 172.[address] Radha Quintero Work Phone: [facility] Work Phone: 04-11-2022 15:14-0500 Body mass index (BMI) [Ratio] 22.2 kg/m2 Dr. Radha Quintero Work Phone: [facility] Work Phone: 04-11-2022 15:14-0500 Body weight 66.[address] Radha Quintero Work Phone: [facility] Work Phone: 04-10-2022 23:37-0500 Heart rate 69 /min Dr. Radha Quintero Work Phone: [facility] Work Phone: 04-10-2022 23:37-0500 Respiratory rate 18 /min Dr. Radha Quintero Work Phone: [facility] Work Phone: 04-10-2022 23:37-0500 SaO2% (BldA) [Mass fraction] 98 % Dr. Radha Quintero Work Phone: [facility] Work Phone: 04-10-2022 18:23-0500 Body height 172.[address] aRdha Quintero Work Phone: [facility] Work Phone: 04-10-2022 18:23-0500 Body mass index (BMI) [Ratio] 20.9 kg/m2 Dr. Radha Quintero Work Phone: [facility] Work Phone: 04-10-2022 18:23-0500 Body temperature 97.8 [degF] Dr. Radha Quintero Work Phone: [facility] Work Phone: 04-10-2022 18:23-0500 Body weight 62.[address] Radha Quintero Work Phone: [facility] Work Phone: 04-10-2022 18:23-0500 Diastolic blood pressure 65 mm[Hg] Dr. Radha Quintero Work Phone: [facility] Work Phone: 04-10-2022 18:23-0500 Systolic blood pressure 107 mm[Hg] Dr. Radha Quintero Work Phone: [facility] Work Phone: 04-08-2022 14:13-0500 Body mass index (BMI) [Ratio] 20.7 kg/m2 Dr. Radha Quintero Work Phone: [facility] Work Phone: 04-08-2022 14:13-0500 Body temperature 97.8 [degF] Dr. Radha Quintero Work Phone: [facility] Work Phone: 04-08-2022 14:13-0500 Body weight 62.[address] Radha Quintero Work Phone: [facility] Work Phone: 04-08-2022 14:13-0500 Diastolic blood pressure 63 mm[Hg] Dr. Radha Quintero Work Phone: [facility] Work Phone: 04-08-2022 14:13-0500 Heart rate 107 /min Dr. Radha Quintero Work Phone: [facility] Work Phone: 04-08-2022 14:13-0500 Respiratory rate 16 /min Dr. Radha Quintero Work Phone: [facility] Work Phone: 04-08-2022 14:13-0500 SaO2% (BldA) [Mass fraction] 99 % Dr. Radha Quintero Work Phone: [facility] Work Phone: 04-08-2022 14:13-0500 Systolic blood pressure 108 mm[Hg] Dr. Radha Quintero Work Phone: [facility] Work Phone: 03-22-2022 10:30-0500 Body height 172.72 cm No Primary Care Physician [facility] Work Phone: 03-22-2022 10:30-0500 Body mass index (BMI) [Ratio] 20.9 kg/m2 No Primary Care Physician [facility] Work Phone: 03-22-2022 10:30-0500 Body temperature 97.8 [degF] No Primary Care Physician [facility] Work Phone: 03-22-2022 10:30-0500 Body weight 62.59 kg No Primary Care Physician [facility] Work Phone: 03-22-2022 10:30-0500 Diastolic blood pressure 84 mm[Hg] No Primary Care Physician [facility] Work Phone: 03-22-2022 10:30-0500 Heart rate 91 /min No Primary Care Physician [facility] Work Phone: 03-22-2022 10:30-0500 Respiratory rate 18 /min No Primary Care Physician [facility] Work Phone: 03-22-2022 10:30-0500 SaO2% (BldA) [Mass fraction] 94 % No Primary Care Physician [facility] Work Phone: 03-22-2022 10:30-0500 Systolic blood pressure 110 mm[Hg] No Primary Care Physician [facility] Work Phone: 02-10-2022 15:16-0500 Body height 172.72 cm No Primary Care Physician [facility] Work Phone: 02-10-2022 15:16-0500 Body mass index (BMI) [Ratio] 21.1 kg/m2 No Primary Care Physician [facility] Work Phone: 02-10-2022 15:16-0500 Body weight 63.04 kg No Primary Care Physician [facility] Work Phone: 02-10-2022 15:16-0500 Diastolic blood pressure 71 mm[Hg] No Primary Care Physician [facility] Work Phone: 02-10-2022 15:16-0500 Heart rate 66 /min No Primary Care Physician [facility] Work Phone: 02-10-2022 15:16-0500 Respiratory rate 18 /min No Primary Care Physician [facility] Work Phone: 02-10-2022 15:16-0500 SaO2% (BldA) [Mass fraction] 98 % No Primary Care Physician [facility] Work Phone: 02-10-2022 15:16-0500 Systolic blood pressure 118 mm[Hg] No Primary Care Physician [facility] Work Phone: 02-05-2022 11:40-0400 Body height 172.72 cm No Primary Care Physician [facility] Work Phone: 02-05-2022 11:40-0400 Body mass index (BMI) [Ratio] 20.9 kg/m2 No Primary Care Physician [facility] Work Phone: 02-05-2022 11:40-0400 Body temperature 97.1 [degF] No Primary Care Physician [facility] Work Phone: 02-05-2022 11:40-0400 Body weight 62.59 kg No Primary Care Physician [facility] Work Phone: 02-05-2022 11:40-0400 Diastolic blood pressure 72 mm[Hg] No Primary Care Physician [facility] Work Phone: 02-05-2022 11:40-0400 Heart rate 64 /min No Primary Care Physician [facility] Work Phone: 02-05-2022 11:40-0400 Respiratory rate 16 /min No Primary Care Physician [facility] Work Phone: 02-05-2022 11:40-0400 SaO2% (BldA) [Mass fraction] 100 % No Primary Care Physician [facility] Work Phone: 02-05-2022 11:40-0400 Systolic blood pressure 114 mm[Hg] No Primary Care Physician [facility] Work Phone: 02-02-2022 00:37-0400 Body weight 63.72 kg No Primary Care Physician [facility] Work Phone: 01-14-2022 11:40-0400 Body height 172.72 cm No Primary Care Physician [facility] Work Phone: 01-14-2022 11:40-0400 Body mass index (BMI) [Ratio] 21.2 kg/m2 No Primary Care Physician [facility] Work Phone: 01-14-2022 11:40-0400 Body weight 63.27 kg No Primary Care Physician [facility] Work Phone: 01-14-2022 11:40-0400 Diastolic blood pressure 60 mm[Hg] No Primary Care Physician [facility] Work Phone: 01-14-2022 11:40-0400 Heart rate 72 /min No Primary Care Physician [facility] Work Phone: 01-14-2022 11:40-0400 Respiratory rate 18 /min No Primary Care Physician [facility] Work Phone: 01-14-2022 11:40-0400 Systolic blood pressure 98 mm[Hg] No Primary Care Physician [facility] Work Phone: 01-14-2022 08:08-0400 Body weight 63.72 kg No Primary Care Physician [facility] Work Phone: 01-06-2022 13:37-0400 Body mass index (BMI) [Ratio] 21.2 kg/m2 No Primary Care Physician [facility] Work Phone: 01-06-2022 13:37-0400 Body weight 63.5 kg No Primary Care Physician [facility] Work Phone: 01-06-2022 13:37-0400 Diastolic blood pressure 49 mm[Hg] No Primary Care Physician [facility] Work Phone: 01-06-2022 13:37-0400 Heart rate 63 /min No Primary Care Physician [facility] Work Phone: 01-06-2022 13:37-0400 Respiratory rate 18 /min No Primary Care Physician [facility] Work Phone: 01-06-2022 13:37-0400 Systolic blood pressure 93 mm[Hg] No Primary Care Physician [facility] Work Phone: 12-17-2021 14:01-0400 Body height 172.72 cm No Primary Care Physician [facility] Work Phone: 12-17-2021 14:01-0400 Body mass index (BMI) [Ratio] 20.5 kg/m2 No Primary Care Physician [facility] Work Phone: 12-17-2021 14:01-0400 Body temperature 98.6 [degF] No Primary Care Physician [facility] Work Phone: 12-17-2021 14:01-0400 Body weight 61.29 kg No Primary Care Physician [facility] Work Phone: 12-17-2021 14:01-0400 Diastolic blood pressure 84 mm[Hg] No Primary Care Physician [facility] Work Phone: 12-17-2021 14:01-0400 Heart rate 78 /min No Primary Care Physician [facility] Work Phone: 12-17-2021 14:01-0400 Respiratory rate 16 /min No Primary Care Physician [facility] Work Phone: 12-17-2021 14:01-0400 SaO2% (BldA) [Mass fraction] 98 % No Primary Care Physician [facility] Work Phone: 12-17-2021 14:01-0400 Systolic blood pressure 112 mm[Hg] No Primary Care Physician [facility] Work Phone: 12-11-2021 15:01-0400 Body weight 61.68 kg No Primary Care Physician [facility] Work Phone: 12-11-2021 14:36-0400 Body mass index (BMI) [Ratio] 20.7 kg/m2 No Primary Care Physician [facility] Work Phone: 12-11-2021 14:36-0400 Body temperature 97.3 [degF] No Primary Care Physician [facility] Work Phone: 12-11-2021 14:36-0400 Diastolic blood pressure 74 mm[Hg] No Primary Care Physician [facility] Work Phone: 12-11-2021 14:36-0400 Heart rate 61 /min No Primary Care Physician [facility] Work Phone: 12-11-2021 14:36-0400 Respiratory rate 16 /min No Primary Care Physician [facility] Work Phone: 12-11-2021 14:36-0400 SaO2% (BldA) [Mass fraction] 98 % No Primary Care Physician [facility] Work Phone: 12-11-2021 14:36-0400 Systolic blood pressure 115 mm[Hg] No Primary Care Physician [facility] Work Phone: 11-24-2021 15:29-0400 Body height 172.72 cm No Primary Care Physician [facility] Work Phone: 11-24-2021 15:29-0400 Body mass index (BMI) [Ratio] 20.7 kg/m2 No Primary Care Physician [facility] Work Phone: 11-24-2021 15:29-0400 Body weight 61.68 kg No Primary Care Physician [facility] Work Phone: 11-24-2021 15:29-0400 Diastolic blood pressure 74 mm[Hg] No Primary Care Physician [facility] Work Phone: 11-24-2021 15:29-0400 Heart rate 61 /min No Primary Care Physician [facility] Work Phone: 11-24-2021 15:29-0400 Respiratory rate 18 /min No Primary Care Physician [facility] Work Phone: 11-24-2021 15:29-0400 SaO2% (BldA) [Mass fraction] 99 % No Primary Care Physician [facility] Work Phone: 11-24-2021 15:29-0400 Systolic blood pressure 115 mm[Hg] No Primary Care Physician [facility] Work Phone: 11-06-2021 14:16-0400 Body height 174 cm Linda Winkler APRN.CNP Work Phone: [facility] 11-06-2021 14:16-0400 Body weight 60.33 kg Linda Cathi [employer] Work Phone: [facility] 11-06-2021 14:16-0400 Diastolic blood pressure 64 mm[Hg] Linda Cathi [employer] Work Phone: [facility] 11-06-2021 14:16-0400 Heart rate 68 /min Linda Cathi [employer] Work Phone: [facility] 11-06-2021 14:16-0400 Respiratory rate 16 /min Linda Cathi [employer] Work Phone: [facility] 11-06-2021 14:16-0400 SaO2% (BldA) [Mass fraction] 98 % Linda Cathi [employer] Work Phone: [facility] 11-06-2021 14:16-0400 Systolic blood pressure 118 mm[Hg] Linda Cathi [employer] Work Phone: [facility] 10-30-2021 00:18-0400 Diastolic blood pressure 81 mm[Hg] No Primary Care Physician [facility] Work Phone: 10-30-2021 00:18-0400 Heart rate 77 /min No Primary Care Physician [facility] Work Phone: 10-30-2021 00:18-0400 Respiratory rate 20 /min No Primary Care Physician [facility] Work Phone: 10-30-2021 00:18-0400 SaO2% (BldA) [Mass fraction] 96 % No Primary Care Physician [facility] Work Phone: 10-30-2021 00:18-0400 Systolic blood pressure 123 mm[Hg] No Primary Care Physician [facility] Work Phone: 10-29-2021 20:27-0400 Body mass index (BMI) [Ratio] 19.5 kg/m2 No Primary Care Physician [facility] Work Phone: 10-29-2021 20:27-0400 Body temperature 98 [degF] No Primary Care Physician [facility] Work Phone: 10-29-2021 20:27-0400 Body weight 58.51 kg No Primary Care Physician [facility] Work Phone: 10-22-2021 10:31-0400 Body temperature 97.9 [degF] Bjornadeline Calvillo RN Work Phone: [facility] 10-22-2021 10:31-0400 Body weight 59.33 kg Bjornadeline Calvillo RN Work Phone: [facility] 10-22-2021 10:31-0400 Diastolic blood pressure 64 mm[Hg] Bjornadeline Calvillo RN Work Phone: [facility] 10-22-2021 10:31-0400 Heart rate 72 /min Bjorn Most RN Work Phone: [facility] 10-22-2021 10:31-0400 Respiratory rate 16 /min Bjorntodd Calvillo RN Work Phone: [facility] 10-22-2021 10:31-0400 SaO2% (BldA) [Mass fraction] 99 % Bjorn Most RN Work Phone: [facility] 10-22-2021 10:31-0400 Systolic blood pressure 102 mm[Hg] Bjornadeline Calvillo RN Work Phone: [facility] 10-19-2021 10:47-0400 Body height 172.72 cm No Primary Care Physician [facility] Work Phone: 10-19-2021 10:47-0400 Body mass index (BMI) [Ratio] 20.2 kg/m2 No Primary Care Physician [facility] Work Phone: 10-19-2021 10:47-0400 Body temperature 97.3 [degF] No Primary Care Physician [facility] Work Phone: 10-19-2021 10:47-0400 Body weight 60.55 kg No Primary Care Physician [facility] Work Phone: 10-19-2021 10:47-0400 Diastolic blood pressure 60 mm[Hg] No Primary Care Physician [facility] Work Phone: 10-19-2021 10:47-0400 Heart rate 79 /min No Primary Care Physician [facility] Work Phone: 10-19-2021 10:47-0400 Respiratory rate 18 /min No Primary Care Physician [facility] Work Phone: 10-19-2021 10:47-0400 SaO2% (BldA) [Mass fraction] 98 % No Primary Care Physician [facility] Work Phone: 10-19-2021 10:47-0400 Systolic blood pressure 106 mm[Hg] No Primary Care Physician [facility] Work Phone: 10-18-2021 12:42-0400 Body height 172.72 cm No Primary Care Physician [facility] Work Phone: 10-18-2021 12:42-0400 Body mass index (BMI) [Ratio] 19.5 kg/m2 No Primary Care Physician [facility] Work Phone: 10-18-2021 12:42-0400 Body temperature 97.8 [degF] No Primary Care Physician [facility] Work Phone: 10-18-2021 12:42-0400 Body weight 58.51 kg No Primary Care Physician [facility] Work Phone: 10-18-2021 12:42-0400 Diastolic blood pressure 64 mm[Hg] No Primary Care Physician [facility] Work Phone: 10-18-2021 12:42-0400 Heart rate 79 /min No Primary Care Physician [facility] Work Phone: 10-18-2021 12:42-0400 Respiratory rate 14 /min No Primary Care Physician [facility] Work Phone: 10-18-2021 12:42-0400 SaO2% (BldA) [Mass fraction] 97 % No Primary Care Physician [facility] Work Phone: 10-18-2021 12:42-0400 Systolic blood pressure 88 mm[Hg] No Primary Care Physician [facility] Work Phone: 10-16-2021 23:03-0400 Diastolic blood pressure 71 mm[Hg] No Primary Care Physician [facility] Work Phone: 10-16-2021 23:03-0400 Heart rate 76 /min No Primary Care Physician [facility] Work Phone: 10-16-2021 23:03-0400 Respiratory rate 16 /min No Primary Care Physician [facility] Work Phone: 10-16-2021 23:03-0400 SaO2% (BldA) [Mass fraction] 95 % No Primary Care Physician [facility] Work Phone: 10-16-2021 23:03-0400 Systolic blood pressure 111 mm[Hg] No Primary Care Physician [facility] Work Phone: 10-16-2021 19:47-0400 Body height 172.72 cm No Primary Care Physician [facility] Work Phone: 10-16-2021 19:47-0400 Body mass index (BMI) [Ratio] 20 kg/m2 No Primary Care Physician [facility] Work Phone: 10-16-2021 19:47-0400 Body temperature 98.1 [degF] No Primary Care Physician [facility] Work Phone: 10-16-2021 19:47-0400 Body weight 59.87 kg No Primary Care Physician [facility] Work Phone: 10-16-2021 13:29-0400 Body height 174 cm Linda Winkler APRN.[employer] Work Phone: [facility] 10-16-2021 13:29-0400 Body weight 61.15 kg Linda Winkler APRN.[employer] Work Phone: [facility] 10-16-2021 13:29-0400 Diastolic blood pressure 64 mm[Hg] Linda Cathi CONTESTANT COORDINATOR.[employer] Work Phone: [facility] 10-16-2021 13:29-0400 Heart rate 72 /min Linda Winkler CONTESTANT COORDINATOR.[employer] Work Phone: [facility] 10-16-2021 13:29-0400 Respiratory rate 16 /min Linda Winkler CONTESTANT COORDINATOR.[employer] Work Phone: [facility] 10-16-2021 13:29-0400 SaO2% (BldA) [Mass fraction] 97 % Linda Winkler CONTESTANT COORDINATOR.[employer] Work Phone: [facility] 10-16-2021 13:29-0400 Systolic blood pressure 122 mm[Hg] Linda Winkler CONTESTANT COORDINATOR.[employer] Work Phone: [facility] 10-15-2021 14:23-0400 Body mass index (BMI) [Ratio] 20.7 kg/m2 No Primary Care Physician [facility] Work Phone: 10-15-2021 14:23-0400 Body temperature 98.6 [degF] No Primary Care Physician [facility] Work Phone: 10-15-2021 14:23-0400 Body weight 61.68 kg No Primary Care Physician [facility] Work Phone: 10-15-2021 14:23-0400 Diastolic blood pressure 68 mm[Hg] No Primary Care Physician [facility] Work Phone: 10-15-2021 14:23-0400 Heart rate 71 /min No Primary Care Physician [facility] Work Phone: 10-15-2021 14:23-0400 Respiratory rate 16 /min No Primary Care Physician [facility] Work Phone: 10-15-2021 14:23-0400 SaO2% (BldA) [Mass fraction] 95 % No Primary Care Physician [facility] Work Phone: 10-15-2021 14:23-0400 Systolic blood pressure 118 mm[Hg] No Primary Care Physician [facility] Work Phone: 10-15-2021 11:58-0400 Body temperature 97.39 [degF] Bjorn Most RN Work Phone: [facility] 10-15-2021 11:58-0400 Body weight 58.97 kg Bjorn Most RN Work Phone: [facility] 10-15-2021 11:58-0400 Diastolic blood pressure 62 mm[Hg] Bjorn Most RN Work Phone: [facility] 10-15-2021 11:58-0400 Heart rate 72 /min Bjorn Most RN Work Phone: [facility] 10-15-2021 11:58-0400 Respiratory rate 16 /min Bjorn Most RN Work Phone: [facility] 10-15-2021 11:58-0400 SaO2% (BldA) [Mass fraction] 97 % Bjorn Most RN Work Phone: [facility] 10-15-2021 11:58-0400 Systolic blood pressure 108 mm[Hg] Bjorn Most RN Work Phone: [facility] 10-09-2021 12:07-0400 Body temperature 97.9 [degF] Bjorn Most RN Work Phone: [facility] 10-09-2021 12:07-0400 Body weight 60.6 kg Bjorn Most RN Work Phone: [facility] 10-09-2021 12:07-0400 Diastolic blood pressure 60 mm[Hg] Bjorn Most RN Work Phone: [facility] 10-09-2021 12:07-0400 Heart rate 72 /min Bjorn Most RN Work Phone: [facility] 10-09-2021 12:07-0400 Respiratory rate 16 /min Bjorn Most RN Work Phone: [facility] 10-09-2021 12:07-0400 SaO2% (BldA) [Mass fraction] 99 % Bjorn Most RN Work Phone: [facility] 10-09-2021 12:07-0400 Systolic blood pressure 106 mm[Hg] Bjorn Most RN Work Phone: [facility] 10-06-2021 15:28-0400 Body temperature 98.1 [degF] Bjorn Most RN Work Phone: [facility] 10-06-2021 15:28-0400 Body weight 58.97 kg Bjorn Most RN Work Phone: [facility] 10-06-2021 15:28-0400 Diastolic blood pressure 62 mm[Hg] Bjorn Most RN Work Phone: [facility] 10-06-2021 15:28-0400 Heart rate 84 /min Bjorn Most RN Work Phone: [facility] 10-06-2021 15:28-0400 Respiratory rate 16 /min Bjorn Most RN Work Phone: [facility] 10-06-2021 15:28-0400 SaO2% (BldA) [Mass fraction] 99 % Bjorn Most RN Work Phone: [facility] 10-06-2021 15:28-0400 Systolic blood pressure 108 mm[Hg] Bjorn Most RN Work Phone: [facility] 10-02-2021 17:10-0400 Body temperature 98.1 [degF] Bjorn Most RN Work Phone: [facility] 10-02-2021 17:10-0400 Body weight 59.42 kg Bjorn Most RN Work Phone: [facility] 10-02-2021 17:10-0400 Diastolic blood pressure 76 mm[Hg] Bjorn Most RN Work Phone: [facility] 10-02-2021 17:10-0400 Heart rate 72 /min Bjorn Most RN Work Phone: [facility] 10-02-2021 17:10-0400 Respiratory rate 16 /min Bjorn Most RN Work Phone: [facility] 10-02-2021 17:10-0400 SaO2% (BldA) [Mass fraction] 99 % Bjorn Most RN Work Phone: [facility] 10-02-2021 17:10-0400 Systolic blood pressure 122 mm[Hg] Bjorn Most RN Work Phone: [facility] 09-30-2021 11:48-0400 Body height 172.7 cm Bjorn Most RN Work Phone: [facility] 09-30-2021 11:48-0400 Body temperature 97.9 [degF] Bjorn Most RN Work Phone: [facility] 09-30-2021 11:48-0400 Body weight 60.6 kg Bjorn Most RN Work Phone: [facility] 09-30-2021 11:48-0400 Diastolic blood pressure 64 mm[Hg] Bjorn Most RN Work Phone: [facility] 09-30-2021 11:48-0400 Heart rate 72 /min Bjorn Most RN Work Phone: [facility] 09-30-2021 11:48-0400 Respiratory rate 16 /min Bjorn Most RN Work Phone: [facility] 09-30-2021 11:48-0400 SaO2% (BldA) [Mass fraction] 98 % Bjorn Most RN Work Phone: [facility] 09-30-2021 11:48-0400 Systolic blood pressure 122 mm[Hg] Bjorn Most RN Work Phone: [facility] 09-15-2021 13:37-0400 Body height 174 cm Matt Villegas PA-C Work Phone: [facility] 09-15-2021 13:37-0400 Body temperature 97.81 [degF] Matt Villegas PA-C Work Phone: [facility] 09-15-2021 13:37-0400 Body weight 63.5 kg Matt Villegas PA-C Work Phone: [facility] 09-15-2021 13:37-0400 Diastolic blood pressure 64 mm[Hg] Matt Villegas PA-C Work Phone: [facility] 09-15-2021 13:37-0400 Heart rate 86 /min Matt Villegas PA-C Work Phone: [facility] 09-15-2021 13:37-0400 Respiratory rate 14 /min Matt Villegas PA-C Work Phone: [facility] 09-15-2021 13:37-0400 SaO2% (BldA) [Mass fraction] 98 % Matt Villegas PA-C Work Phone: [facility] 09-15-2021 13:37-0400 Systolic blood pressure 104 mm[Hg] Matt Villegas PA-C Work Phone: [facility] 09-11-2021 14:07-0400 Body height 175.3 cm Linda Winkler CONTESTANT COORDINATOR.[employer] Work Phone: [facility] 09-11-2021 14:07-0400 Body weight 61.69 kg Linda Winkler CONTESTANT COORDINATOR.[employer] Work Phone: [facility] 09-11-2021 14:07-0400 Diastolic blood pressure 68 mm[Hg] Linda Winkler CONTESTANT COORDINATOR.[employer] Work Phone: [facility] 09-11-2021 14:07-0400 Heart rate 68 /min Linda Winkler CONTESTANT COORDINATOR.[employer] Work Phone: [facility] 09-11-2021 14:07-0400 Respiratory rate 18 /min Linda Winkler CONTESTANT COORDINATOR.[employer] Work Phone: [facility] 09-11-2021 14:07-0400 SaO2% (BldA) [Mass fraction] 96 % Linda Cathi CONTESTANT COORDINATOR.[employer] Work Phone: [facility] 09-11-2021 14:07-0400 Systolic blood pressure 100 mm[Hg] Linda Cathi CONTESTANT COORDINATOR.[employer] Work Phone: [facility] 09-09-2021 08:35-0400 Body mass index (BMI) [Ratio] 21.7 kg/m2 No Primary Care Physician [facility] Work Phone: 09-09-2021 08:35-0400 Body temperature 98.1 [degF] No Primary Care Physician [facility] Work Phone: 09-09-2021 08:35-0400 Body weight 64.86 kg No Primary Care Physician [facility] Work Phone: 09-09-2021 08:35-0400 Diastolic blood pressure 76 mm[Hg] No Primary Care Physician [facility] Work Phone: 09-09-2021 08:35-0400 Heart rate 74 /min No Primary Care Physician [facility] Work Phone: 09-09-2021 08:35-0400 Respiratory rate 18 /min No Primary Care Physician [facility] Work Phone: 09-09-2021 08:35-0400 SaO2% (BldA) [Mass fraction] 96 % No Primary Care Physician [facility] Work Phone: 09-09-2021 08:35-0400 Systolic blood pressure 118 mm[Hg] No Primary Care Physician [facility] Work Phone: 08-18-2021 14:11-0400 Body mass index (BMI) [Ratio] 20.9 kg/m2 No Primary Care Physician [facility] Work Phone: 08-18-2021 14:11-0400 Body weight 63.5 kg No Primary Care Physician [facility] Work Phone: 08-18-2021 14:11-0400 Diastolic blood pressure 62 mm[Hg] No Primary Care Physician [facility] Work Phone: 08-18-2021 14:11-0400 Heart rate 58 /min No Primary Care Physician [facility] Work Phone: 08-18-2021 14:11-0400 Respiratory rate 18 /min No Primary Care Physician [facility] Work Phone: 08-18-2021 14:11-0400 SaO2% (BldA) [Mass fraction] 97 % No Primary Care Physician [facility] Work Phone: 08-18-2021 14:11-0400 Systolic blood pressure 125 mm[Hg] No Primary Care Physician [facility] Work Phone: 08-11-2021 13:42-0400 Body mass index (BMI) [Ratio] 21.1 kg/m2 No Primary Care Physician [facility] Work Phone: 08-11-2021 13:42-0400 Body temperature 98.4 [degF] No Primary Care Physician [facility] Work Phone: 08-11-2021 13:42-0400 Body weight 63.95 kg No Primary Care Physician [facility] Work Phone: 08-11-2021 13:42-0400 Diastolic blood pressure 84 mm[Hg] No Primary Care Physician [facility] Work Phone: 08-11-2021 13:42-0400 Heart rate 61 /min No Primary Care Physician [facility] Work Phone: 08-11-2021 13:42-0400 Respiratory rate 16 /min No Primary Care Physician [facility] Work Phone: 08-11-2021 13:42-0400 SaO2% (BldA) [Mass fraction] 97 % No Primary Care Physician [facility] Work Phone: 08-11-2021 13:42-0400 Systolic blood pressure 120 mm[Hg] No Primary Care Physician [facility] Work Phone: 07-04-2021 20:37-0400 Heart rate 79 /min No Primary Care Physician [facility] Work Phone: 07-04-2021 20:37-0400 Respiratory rate 18 /min No Primary Care Physician [facility] Work Phone: 07-04-2021 20:37-0400 SaO2% (BldA) [Mass fraction] 96 % No Primary Care Physician [facility] Work Phone: 07-04-2021 18:39-0400 Body height 180.34 cm No Primary Care Physician [facility] Work Phone: 07-04-2021 18:39-0400 Body mass index (BMI) [Ratio] 19.5 kg/m2 No Primary Care Physician [facility] Work Phone: 07-04-2021 18:39-0400 Body temperature 97.2 [degF] No Primary Care Physician [facility] Work Phone: 07-04-2021 18:39-0400 Body weight 63.5 kg No Primary Care Physician [facility] Work Phone: 07-04-2021 18:39-0400 Diastolic blood pressure 65 mm[Hg] No Primary Care Physician [facility] Work Phone: 07-04-2021 18:39-0400 Systolic blood pressure 113 mm[Hg] No Primary Care Physician [facility] Work Phone: 06-29-2021 12:59-0400 Diastolic blood pressure 75 mm[Hg] No Primary Care Physician [facility] Work Phone: 06-29-2021 12:59-0400 Heart rate 56 /min No Primary Care Physician [facility] Work Phone: 06-29-2021 12:59-0400 SaO2% (BldA) [Mass fraction] 98 % No Primary Care Physician [facility] Work Phone: 06-29-2021 12:59-0400 Systolic blood pressure 108 mm[Hg] No Primary Care Physician [facility] Work Phone: 06-29-2021 11:21-0400 Respiratory rate 18 /min No Primary Care Physician [facility] Work Phone: 06-29-2021 10:12-0400 Body mass index (BMI) [Ratio] 21.1 kg/m2 No Primary Care Physician [facility] Work Phone: 06-29-2021 10:12-0400 Body temperature 96.2 [degF] No Primary Care Physician [facility] Work Phone: 06-29-2021 10:12-0400 Body weight 63.04 kg No Primary Care Physician [facility] Work Phone: 06-15-2021 14:05-0400 Body temperature 98.9 [degF] No Primary Care Physician [facility] Work Phone: 06-15-2021 14:05-0400 Diastolic blood pressure 76 mm[Hg] No Primary Care Physician [facility] Work Phone: 06-15-2021 14:05-0400 Heart rate 66 /min No Primary Care Physician [facility] Work Phone: 06-15-2021 14:05-0400 Respiratory rate 18 /min No Primary Care Physician [facility] Work Phone: 06-15-2021 14:05-0400 SaO2% (BldA) [Mass fraction] 97 % No Primary Care Physician [facility] Work Phone: 06-15-2021 14:05-0400 Systolic blood pressure 120 mm[Hg] No Primary Care Physician [facility] Work Phone: 06-02-2021 13:06-0500 Body mass index (BMI) [Ratio] 21.2 kg/m2 No Primary Care Physician [facility] Work Phone: 06-02-2021 13:06-0500 Body weight 63.5 kg No Primary Care Physician [facility] Work Phone: 06-02-2021 13:06-0500 Diastolic blood pressure 74 mm[Hg] No Primary Care Physician [facility] Work Phone: 06-02-2021 13:06-0500 Heart rate 70 /min No Primary Care Physician [facility] Work Phone: 06-02-2021 13:06-0500 Respiratory rate 18 /min No Primary Care Physician [facility] Work Phone: 06-02-2021 13:06-0500 SaO2% (BldA) [Mass fraction] 99 % No Primary Care Physician [facility] Work Phone: 06-02-2021 13:06-0500 Systolic blood pressure 127 mm[Hg] No Primary Care Physician [facility] Work Phone: 05-27-2021 06:05-0500 Body weight 63.95 kg No Primary Care Physician [facility] Work Phone: 04-25-2021 17:22-0500 Body mass index (BMI) [Ratio] 21.4 kg/m2 No Primary Care Physician [facility] Work Phone: 04-25-2021 17:22-0500 Body temperature 98.5 [degF] No Primary Care Physician [facility] Work Phone: 04-25-2021 17:22-0500 Body weight 63.95 kg No Primary Care Physician [facility] Work Phone: 04-25-2021 17:22-0500 Diastolic blood pressure 63 mm[Hg] No Primary Care Physician [facility] Work Phone: 04-25-2021 17:22-0500 Heart rate 85 /min No Primary Care Physician [facility] Work Phone: 04-25-2021 17:22-0500 Respiratory rate 16 /min No Primary Care Physician [facility] Work Phone: 04-25-2021 17:22-0500 SaO2% (BldA) [Mass fraction] 98 % No Primary Care Physician [facility] Work Phone: 04-25-2021 17:22-0500 Systolic blood pressure 104 mm[Hg] No Primary Care Physician [facility] Work Phone: 04-23-2021 06:40-0500 Body mass index (BMI) [Ratio] 21.4 kg/m2 No Primary Care Physician [facility] Work Phone: 04-16-2021 14:21-0500 Body mass index (BMI) [Ratio] 21.4 kg/m2 No Primary Care Physician [facility] Work Phone: 04-16-2021 14:21-0500 Body weight 63.95 kg No Primary Care Physician [facility] Work Phone: 04-16-2021 14:21-0500 Diastolic blood pressure 84 mm[Hg] No Primary Care Physician [facility] Work Phone: 04-16-2021 14:21-0500 Heart rate 76 /min No Primary Care Physician [facility] Work Phone: 04-16-2021 14:21-0500 Respiratory rate 17 /min No Primary Care Physician [facility] Work Phone: 04-16-2021 14:21-0500 SaO2% (BldA) [Mass fraction] 97 % No Primary Care Physician [facility] Work Phone: 04-16-2021 14:21-0500 Systolic blood pressure 138 mm[Hg] No Primary Care Physician [facility] Work Phone: 04-16-2021 12:49-0500 Body mass index (BMI) [Ratio] 21.4 kg/m2 No Primary Care Physician [facility] Work Phone: 04-16-2021 12:49-0500 Body weight 63.95 kg No Primary Care Physician [facility] Work Phone: 04-16-2021 12:49-0500 Diastolic blood pressure 78 mm[Hg] No Primary Care Physician [facility] Work Phone: 04-16-2021 12:49-0500 Heart rate 76 /min No Primary Care Physician [facility] Work Phone: 04-16-2021 12:49-0500 Respiratory rate 18 /min No Primary Care Physician [facility] Work Phone: 04-16-2021 12:49-0500 SaO2% (BldA) [Mass fraction] 96 % No Primary Care Physician [facility] Work Phone: 04-16-2021 12:49-0500 Systolic blood pressure 137 mm[Hg] No Primary Care Physician [facility] Work Phone: Encounters Encounter Date Encounter Type Care Provider Facility Start: 10-18-[address] Siva Mathew MD -[facility] Start: 10-18-2024 End: 10-18-2024 Patient encounter procedure Aide Mcdonnell CABLE REELER-C -[facility] Work Phone: Start: 10-18-2024 End: 10-18-[address] Parish Graff DO Work Phone: -[facility] Start: 10-12-2024 End: 10-12-2024 Patient encounter procedure Rosalio Horta PA -[facility] Work Phone: Start: 10-12-2024 End: 10-12-[address] Parish Graff DO Work Phone: -[facility] Start: 10-04-2024 End: 10-04-2024 ambulatory PARISH GRAFF DO Facility:[facility] Start: 10-04-2024 End: 10-04-2024 Patient encounter procedure PARISH GRAFF DO [facility] Start: 09-24-2024 ambulatory Parish Williamqi Facility: [facility] Start: 09-21-2024 End: 09-21-2024 Emergency department patient visit GARY KRUSE DO [facility] Start: 09-11-2024 ambulatory Parish Graff Facility: [facility] Start: 08-28-2024 End: 08-28-2024 ambulatory PARISH PRERNA DO Facility:[facility] Start: 08-28-2024 End: 08-28-2024 Patient encounter procedure PARISH GRAFF DO [facility] Start: 08-04-2024 End: 08-04-2024 Emergency department patient visit DR FRANK GUILLERMO DO [facility] Start: 07-17-2024 End: 07-17-2024 Patient encounter procedure PRESLEY [facility] Work Phone: Start: 07-17-2024 End: 07-17-2024 ambulatory Parish Halko Facility:[facility] Start: 07-10-[address] Siva Mathew MD -[facility] Start: 07-10-2024 End: 07-10-2024 Patient encounter procedure Aide Mcdonnell NP-Johanny -[facility] Work Phone: Start: 07-10-2024 End: 07-10-2024 ambulatory Parish Halko Facility:[facility] Start: 05-30-2024 End: 05-30-2024 ambulatory PARISH HALKO DO Facility:[facility] Start: 05-30-2024 End: 05-30-2024 Patient encounter procedure PARISH HALKO DO [facility] Start: 05-21-2024 ambulatory Parish Halko Facility: [facility] Start: 05-15-2024 End: 05-15-2024 ambulatory Parish Halko Facility:[facility] Start: 05-08-2024 End: 05-08-2024 ambulatory Parish Halko Facility:[facility] Start: 04-16-2024 End: 04-19-2024 Telephone encounter Rosalva ANGUIANOS [facility] Start: 04-11-2024 End: 04-11-2024 ambulatory Parish Halko Facility:[facility] Start: 04-10-2024 End: 04-10-2024 ambulatory Parish Halko Facility:[facility] Start: 04-05-2024 End: 04-05-2024 ambulatory Parish Halko Facility:[facility] Start: 03-13-2024 End: 03-13-2024 ambulatory Parish Halko Facility:[facility] Start: 03-12-2024 ambulatory Camelia Corral Facility :[facility] Start: 02-27-2024 End: 02-27-2024 ambulatory JOHN MATUTE MD Facility:[facility] Start: 02-27-2024 End: 02-27-2024 SAME DAY STAY JOHN MATUTE MD [facility] Start: 02-23-2024 End: 02-23-2024 Admission to establishment JOHN MATUTE MD [facility] Start: 02-23-2024 End: 02-23-2024 ambulatory JOHN MATUTE MD Facility:[facility] Start: 02-13-2024 ambulatory PARISH GRAFF DO Facili ty:A Start: 02-03-2024 ambulatory PARISH WILLIAMKO DO Facili ty:[facility] Start: 02-03-2024 End: 02-03-2024 ambulatory PARISH GRAFF DO Facility:[facility] Start: 02-03-2024 End: 02-03-2024 Patient encounter procedure PARISH GRAFF DO [facility] Start: 01-26-2024 End: 01-26-2024 Office outpatient visit 25 minutes Nilesh Olivas MD Work Phone: [facility] Comment on above: Tremor (Primary Dx); Partial symptomatic epilepsy with complex partial seizures, intractable, without status epilepticus ([facility] Start: 01-26-2024 End: 01-26-2024 ambulatory NILESH OLIVAS Not Available Start: 01-26-2024 End: 01-26-2024 Bamboo flowsheet Nilesh Olivas MD Work Phone: [facility] Start: 01-26-2024 End: 01-26-2024 Bamboo flowsheet Nilesh Olivas MD Work Phone: [facility] Start: 01-26-2024 End: 02-28-2024 Telephone encounter Nilesh Olivas MD Work Phone: [facility] Start: 11-27-2023 End: 12-02-2023 Refill Lety Whittington NP Work Phone: [facility] Comment on above: Tremor Start: 05-23-2023 End: 05-23-2023 Emergency department patient visit Dr. Radha Quintero Work Phone: [facility]-Emergency Department Work Phone: Start: 04-22-2023 End: 04-22-2023 ambulatory LETY WHITTINGTON Not Available Start: 04-20-2023 End: 04-21-2023 ambulatory PARISH HALKO DO Facility:B Start: 04-20-2023 End: 04-20-2023 Patient encounter procedure PARISH HALKO DO [facility] Start: 04-05-2023 End: 04-05-2023 Emergency department patient visit PARISH HALKO DO Facility:B Start: 03-16-2023 End: 03-17-2023 ambulatory PARISH HALKO DO Facility:B Start: 03-16-2023 End: 03-16-2023 Patient encounter procedure PARISH HALKO DO [facility] Start: 03-10-2023 End: 03-11-2023 ambulatory PARISH HALKO DO Facility:B Start: 03-10-2023 End: 03-10-2023 Patient encounter procedure PARISH HALKO DO [facility] Start: 03-10-2023 End: 03-10-[address] Radha Quintero Work Phone: [facility] Work Phone: Start: 03-07-2023 End: 03-08-2023 ambulatory PARISH HALKO DO Facility:B Start: 03-07-2023 End: 03-07-2023 Patient encounter procedure PARISH HALKO DO [facility] Start: 03-04-2023 End: 03-05-2023 ambulatory PARISH HALKO DO Facility:B Start: 02-28-2023 End: 03-01-2023 ambulatory PARISH HALKO DO Facility:B Start: 02-28-2023 End: 02-28-2023 Patient encounter procedure PARISH HALKO DO [facility] Start: 02-27-2023 End: 02-27-2023 Emergency department patient visit Dr. Radha Quintero Work Phone: [facility] Work Phone: Start: 02-27-2023 End: 02-27-2023 Dr. Radha Quintero Work Phone: [facility]-Emergency Department Work Phone: Start: 02-23-2023 ambulatory PARISH GRAFF DO Facili ty:B Start: 02-15-2023 End: 02-15-[address] Radha Quintero Work Phone: [facility] Work Phone: Start: 02-15-2023 End: 02-15-[address] Radha Quintero Work Phone: [facility] Start: 02-15-2023 End: 02-15-2023 Dr. Radha Quintero Work Phone: [facility] Start: 01-12-2023 End: 01-12-2023 Dr. Radha Quintero Work Phone: [facility]-Pulmonary Services/Neurology Work Phone: Start: 01-11-2023 End: 01-16-2023 ambulatory PARISH GRAFF DO Facility:B Start: 01-11-2023 End: 01-15-2023 Outreach Lab PARISH GRAFF DO [facility] Start: 12-30-2022 End: 12-30-2022 Dr. Radha Quintero Work Phone: [facility] Work Phone: Start: 12-24-2022 End: 12-24-[address] Radha Quintero Work Phone: [facility] Work Phone: Start: 12-24-2022 End: 12-24-2022 Dr. Radha Quintero Work Phone: [facility]-Endoscopy Work Phone: Start: 12-21-2022 Dr. Radha Brown hner Work Phone: [facility] Start: 12-09-2022 End: 12-09-2022 Emergency department patient visit Dr. Radha Quintero Work Phone: [facility] Work Phone: Start: 12-09-2022 End: 12-09-2022 Dr. Radha Quintero Work Phone: [facility]-Emergency Department Work Phone: Start: 11-29-2022 End: 11-29-2022 Dr. Radha Quintero Work Phone: [facility] Work Phone: Start: 11-18-2022 End: 11-18-2022 Dr. Radha Quintero Work Phone: [facility] Work Phone: Start: 11-16-2022 End: 01-12-2023 ambulatory RADHA QUINTERO MD Facility:R Start: 11-10-2022 End: 11-10-2022 Emergency department patient visit Dr. Radha Quintero Work Phone: [facility]-Emergency Department Work Phone: Start: 11-10-2022 End: 11-10-2022 Dr. Radha Quintero Work Phone: [facility]-Emergency Department Work Phone: Start: 11-08-2022 Non-patient / Non-visit Dr. Kenia Quintero Work Phone: [facility] Start: 11-08-2022 Dr. Radha Brown hner Work Phone: [facility] Start: 11-02-2022 Non-patient / Non-visit Dr. Kenia Quintero Work Phone: [facility] Work Phone: Start: 11-02-2022 Dr. Radha Brown hner Work Phone: [facility] Work Phone: Start: 11-02-2022 Evaluation and management of inpatient Dr. Radha Quintero Work Phone: [facility] Work Phone: Start: 11-02-[address] Aura Quintero Work Phone: [facility] Work Phone: Start: 11-01-2022 End: 11-02-2022 Evaluation and management of inpatient [facility] Rad[facility] Start: 11-01-2022 End: 11-02-[address] Radha Quintero Work Phone: [facility] Work Phone: Start: 11-01-2022 Non-patient / Non-visit Dr. Kenia Quintero Work Phone: [facility] Work Phone: Start: 11-01-2022 End: 11-02-2022 Dr. Rad[facility] Start: 10-20-2022 End: 10-20-2022 Emergency department patient visit Dr. Radha Quintero Work Phone: [facility]-Emergency Department Work Phone: Start: 10-20-2022 End: 10-20-2022 Dr. Radha Quintero Work Phone: [facility]-Emergency Department Work Phone: Start: 10-13-2022 End: 10-14-2022 ambulatory SANTA ROJAS MD Facility:A Start: 10-13-2022 End: 10-13-2022 Patient encounter procedure SANTA ROJAS MD [facility] Start: 09-28-2022 End: 09-28-[address] Radha Quintero Work Phone: [facility] Work Phone: Start: 09-28-2022 End: 09-28-[address] Radha Quintero Work Phone: [facility] Start: 09-28-2022 End: 09-28-2022 Dr. Radha Quintero Work Phone: [facility] Start: 09-17-2022 End: 10-14-2022 ambulatory RDAHA QUINTERO MD Facility:R Start: 09-13-2022 End: 09-15-2022 ambulatory MADHU DENNIS MD Facility:A Start: 09-13-2022 End: 09-15-2022 Observation MADHU DENNIS MD [facility] Start: 09-12-2022 End: 09-13-2022 Emergency department patient visit GARY KRUSE DO Facility:B Start: 09-10-2022 Non-patient / Non-visit Dr. Kenia Quintero Work Phone: [facility] Work Phone: Start: 09-10-2022 Dr. Radha casey Work Phone: [facility] Work Phone: Start: 09-09-2022 End: 09-10-2022 Evaluation and management of inpatient Dr. Radha Quintero Work Phone: [facility] Work Phone: Start: 09-09-2022 End: 09-10-2022 Dr. Radha Quintero Work Phone: [facility] Work Phone: Start: 09-09-2022 End: 09-09-[address] Radha Quintero Work Phone: [facility] Work Phone: Start: 09-09-2022 End: 09-09-2022 Dr. Radha Quintero Work Phone: [facility] Work Phone: Start: 09-07-2022 End: 09-07-[address] Radha Quintero Work Phone: [facility] Work Phone: Start: 09-07-2022 End: 09-07-2022 Dr. Radha Quintero Work Phone: [facility] Work Phone: Start: 09-07-2022 End: 09-07-[address] Radha Quintero Work Phone: [facility] Work Phone: Start: 09-07-2022 End: 09-07-2022 Dr. Radha Quintero Work Phone: [facility] Work Phone: Start: 09-05-2022 End: 09-06-2022 Emergency department patient visit Dr. Radha Quintero Work Phone: [facility]-Emergency Department Start: 09-05-2022 End: 09-06-2022 Dr. Radha Quintero Work Phone: [facility]-Emergency Department Work Phone: Start: 07-15-2022 End: 07-15-[address] Radha Quintero Work Phone: [facility] [place] Start: 05-10-2022 End: 05-10-[address] Radha Quintero Work Phone: [facility] Start: 04-14-2022 End: 04-14-[address] Radha Quintero Work Phone: [facility] [place] Start: 04-11-2022 End: 04-11-2022 Emergency department patient visit Dr. Radha Quintero Work Phone: [facility]-Emergency Department Start: 04-10-2022 End: 04-10-2022 Emergency department patient visit Dr. Radha Quintero Work Phone: [facility]-Emergency Department Start: 04-08-2022 End: 04-08-[address] Radha Quintero Work Phone: [facility] Work Phone: Start: 04-08-2022 End: 04-08-[address] Radha Quintero Work Phone: [facility]-Laboratory, OP Pavilion Start: 04-08-2022 End: 04-08-[address] Radha Quintero Work Phone: [facility] Start: 03-22-2022 End: 03-22-2022 Emergency department patient visit No Primary Care Physician [facility]-Emergency Department Start: 02-10-2022 End: 02-10-2022 Patient encounter procedure No Primary Care Physician [facility] Start: 02-06-2022 End: 02-07-2022 Emergency department patient visit PARISH SADLER [facility] Start: 02-05-2022 End: 02-05-2022 Emergency department patient visit No Primary Care Physician [facility]-Emergency Department Start: 02-03-2022 End: 03-03-2022 ambulatory No Primary Care Physician [facility] Work Phone: Start: 02-03-2022 End: 03-03-2022 Discharged Recurring No Primary Care Physician [facility]-Cardiac Rehab Start: 02-03-2022 Registered Recurring No Primar y Care Physician [facility]Cardiac Re[facility] Start: 01-14-2022 End: 01-14-2022 ambulatory No Primary Care Physician [facility] Work Phone: Start: 01-14-2022 End: 01-14-2022 Patient encounter procedure No Primary Care Physician [facility]-Laboratory Start: 01-14-2022 End: 01-14-2022 Patient encounter procedure No Primary Care Physician [facility] Start: 01-13-2022 End: 02-01-2022 Discharged Recurring No Primary Care Physician [facility]Cardiac Re[facility] Start: 01-13-2022 Registered Recurring No Primar y Care Physician [facility] Start: 01-06-2022 End: 01-06-2022 Patient encounter procedure No Primary Care Physician [facility] Start: 01-01-2022 End: 01-01-2022 ambulatory No Primary Care Physician [facility] Work Phone: Start: 01-01-2022 End: 01-01-2022 Discharged Recurring No Primary Care Physician [facility]Card[facility] Start: 12-28-2021 Registered Recurring No Primar y Care Physician [facility]Card[facility] Start: 12-24-2021 End: 12-24-2021 ambulatory No Primary Care Physician [facility] Work Phone: Start: 12-24-2021 End: 12-24-2021 Patient encounter procedure No Primary Care Physician [facility]-Radiology, [facility] Start: 12-24-2021 End: 12-24-2021 Patient encounter procedure No Primary Care Physician [facility] Start: 12-21-2021 Registered Recurring No Primar y Care Physician [facility]Card[facility] Start: 12-17-2021 End: 12-17-2021 ambulatory No Primary Care Physician [facility] Work Phone: Start: 12-17-2021 End: 12-17-2021 Patient encounter procedure No Primary Care Physician [facility] [facility] Start: 12-11-2021 End: 12-11-2021 Patient encounter procedure No Primary Care Physician [facility]-Cardiac Rehab Start: 11-24-2021 End: 11-24-2021 ambulatory No Primary Care Physician [facility] Work Phone: Start: 11-24-2021 End: 11-24-2021 Patient encounter procedure No Primary Care Physician [facility] Start: 11-06-2021 End: 11-06-2021 Patient encounter procedure Linda Winkler APRN.CNP Work Phone: [facility] Comment on above: S/P CABG x 3 (Primar y Dx); Coronary artery disease involving catawba coronary artery of cata[place]ba heart without angina pectoris; Paroxysmal atrial fibrillation (HCC); Chronic obstructive pulmonary disease, unspecified COPD type (HCC); Acute blood loss anemia; Tobacco abuse; Severe protein-calorie malnutrition (HCC) Start: 11-06-2021 End: 11-06-2021 Subsequent hospital visit by physician [facility] Comment on above: 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] Start: 10-29-2021 End: 10-30-2021 Emergency department patient visit No Primary Care Physician [facility]-Emergency Department Start: 10-27-2021 Telephone encounter Sudheer Cassidy RN Work Phone: [facility] Comment on above: Home Care (notificat ion of home health nursing discharge) Start: 10-22-2021 Telephone encounter Gregorio ko MD Work Phone: [facility] Comment on above: Cardiac Rehab ([facility] ) Start: 10-22-2021 End: 10-22-2021 Home visit Bjorn Calvillo RN Work Phone: [facility] Comment on above: SN AGENCY DC W VISIT Start: 10-19-2021 End: 10-19-2021 Patient encounter procedure No Primary Care Physician [facility] Start: 10-18-2021 End: 10-18-2021 Emergency department patient visit No Primary Care Physician [facility]-Emergency Department Start: 10-18-2021 End: 10-18-2021 Patient encounter procedure No Primary Care Physician [facility] Start: 10-16-2021 End: 10-16-2021 Emergency department patient visit No Primary Care Physician [facility]-Emergency Department Start: 10-16-2021 End: 10-16-2021 Patient encounter procedure Linda Winkler APRN.BULL BUCKER Work Phone: [facility] Comment on above: S/P CABG x 3 (Primar y Dx); Coronary artery disease involving catawba coronary artery of c[place] heart without angina pectoris; Paroxysmal atrial fibrillation (HCC); Chronic obstructive pulmonary disease, unspecified COPD type (HCC); Acute blood loss anemia; Severe protein-calorie malnutrition (HCC); Tobacco abuse Start: 10-15-2021 End: 10-15-2021 Patient encounter procedure No Primary Care Physician [facility] Start: 10-15-2021 Telephone encounter Bjorn Calvillo RN Work Phone: [facility] Comment on above: Home Care (pt reques t) Start: 10-15-2021 End: 10-15-2021 Home visit Bjorn Calvillo RN Work Phone: [facility] Comment on above: SN ROUTINE Start: 10-09-2021 End: 10-09-2021 Home visit Bjorn Calvillo RN Work Phone: [facility] Comment on above: SN ROUTINE Start: 10-08-2021 End: 10-08-2021 Patient encounter procedure Linda Winkler APRN.BULL BUCKER Work Phone: [facility] Comment on above: S/P CABG x 3 (Primar y Dx); Coronary artery disease involving catawba coronary artery of c[place] heart without angina pectoris; Paroxysmal atrial fibrillation (HCC); Chronic obstructive pulmonary disease, unspecified COPD type (HCC); Tobacco abuse; Acute blood loss anemia; Severe protein-calorie malnutrition (HCC) Start: 10-06-2021 End: 10-06-2021 Home visit Bjorn Calvillo RN Work Phone: [facility] Comment on above: SN ROUTINE Start: 10-06-2021 Telephone encounter Bjorn Calvillo RN Work Phone: [facility] Comment on above: Home Care (pt questi on) Start: 10-02-2021 End: 10-02-2021 Home visit Bjorn Calvillo RN Work Phone: [facility] Comment on above: SN ROUTINE Start: 09-30-2021 Telephone encounter Bjorn Calvillo RN Work Phone: [facility] Comment on above: Home Care (potential severe drug interaction) Start: 09-30-2021 End: 09-30-2021 Home visit Bjorn Calvillo RN Work Phone: [facility] Comment on above: SN SOC Start: 09-28-2021 Telephone encounter Krunal huffman LPN Work Phone: [facility] Comment on above: Home Care (confirmat ion call) Start: 09-21-2021 Telephone encounter Matt pizano PA-C Work Phone: Urology Comment on above: Results Start: 09-15-2021 End: 09-15-2021 Patient encounter procedure Matt Villegas PA-C Work Phone: Urology Comment on above: BPH with obstruction /lower urinary tract symptoms (Primary Dx); Hematuria, unspecified type; 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 (HCC) Start: 09-14-2021 Telephone encounter Linda Winkler APRN.BULL BUCKER Work Phone: [facility] Comment on above: Results Start: 09-11-2021 End: 09-11-2021 Patient encounter procedure Linda Winkler APRN.BULL BUCKER Work Phone: [facility] Comment on above: Pre-op examination ( Primary Dx) Start: 09-11-2021 End: 09-11-2021 Preprocedural examination done Linda Winkler APRN.CNP Work Phone: [facility] Start: 09-09-2021 End: 09-09-2021 Patient encounter procedure No Primary Care Physician [facility] Start: 09-08-2021 Telephone encounter Gregorio ko MD Work Phone: [facility] Comment on above: Appointment Reschedu led (new surgery date) Start: 08-18-2021 End: 08-18-2021 Patient encounter procedure No Primary Care Physician [facility] Start: 08-14-2021 Patient encounter status Harman Dominguez MD Work Phone: [facility] Start: 08-14-2021 Telephone encounter Gregorio ko MD Work Phone: [facility] Comment on above: Orders Start: 08-11-2021 End: 08-11-2021 Patient encounter procedure No Primary Care Physician [facility] Neu[facility] Start: 07-24-2021 Telephone encounter Gregorio ko MD Work Phone: [facility] Comment on above: Appointment (appoint ment ) Surgery Cancelled; L [facility] Start: 07-23-2021 End: 07-23-2021 Patient encounter status [facility] Start: 07-23-2021 End: 07-23-2021 Subsequent hospital visit by physician [facility] Start: 07-22-2021 Patient encounter status Harman Dominguez MD Work Phone: [facility] Start: 07-22-2021 Telephone encounter Gregorio ko MD Work Phone: [facility] Comment on above: Orders Start: 07-21-2021 Telephone encounter Gregorio ko MD Work Phone: [facility] Comment on above: CT ORDER Start: 07-21-2021 End: 07-21-2021 Subsequent hospital visit by physician [facility] ([facility]-Stat) Work Phone: Cat Scan Comment on above: 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] Start: 07-16-2021 End: 07-16-2021 ambulatory Respiratory Therapist [facility] Work Phone: Pulmonary Medicine Comment on above: Spirometry Start: 07-16-2021 End: 07-16-2021 Patient encounter procedure Respiratory Therapist [facility] Start: 07-06-2021 Telephone encounter Gregorio ko MD Work Phone: [facility] Comment on above: Schedule Surgery Start: 07-04-2021 End: 07-04-2021 Emergency department patient visit No Primary Care Physician [facility]-Emergency Department Start: 06-29-2021 End: 06-29-2021 Emergency department patient visit No Primary Care Physician [facility]-Emergency Department Start: 06-29-2021 Non-patient / Non-visit No Gloria noyola [facility] Physician [facility] Start: 06-25-2021 Patient encounter status Harman Dominguez MD Work Phone: [facility] Start: 06-25-2021 Telephone encounter Gregorio ko MD Work Phone: [facility] Comment on above: Orders Start: 06-15-2021 End: 06-15-2021 Patient encounter procedure No Primary Care Physician [facility] Start: 06-02-2021 End: 06-02-2021 Patient encounter procedure No Primary Care Physician [facility] Start: 05-27-2021 End: 05-27-2021 Admission to same day surgery center No Primary Care Physician [facility]Special Procedures Start: 05-26-2021 Non-patient / Non-visit No Gloria noyola [facility] Physician [facility] Start: 04-25-2021 End: 04-25-2021 Emergency department patient visit No Primary Care Physician [facility]-Emergency Department Start: 04-16-2021 End: 04-16-2021 Patient encounter procedure No Primary Care Physician [facility]-Radiology, H Start: 04-16-2021 End: 04-16-2021 Patient encounter procedure No Primary Care Physician [facility] Start: 04-16-2021 End: 04-16-2021 Patient encounter procedure No Primary Care Physician [facility] Start: 06-02-2017 Ambulatory Titi Jarrodtar phani Brad Facility:[facility] Start: 04-27-2017 End: 04-30-2017 Evaluation and management of inpatient JOE REY Facility:[facility] Start: 04-26-2017 End: 04-27-2017 Emergency department patient visit NO FAMILY DOCTOR NO FAMILY DOCTOR Facility:[facility] Start: 04-26-2017 Ambulatory PCP UNKNOWN Facility:[id number] Procedures Date Procedure Procedure Detail Performing Clinician Start: 10-18-[address] Parish Graff DO Work Phone: Start: 10-18-2024 Lymphocyte percent differential count Dr. Parish Bean Phone: Start: 07-10-[address] Parish Graff DO Work Phone: Start: 07-10-2024 Lymphocyte percent differential count Dr. Parish Bean Phone: Start: 03-20-2024 Positron emission tomography with computed tomography Dr. Parish Bean Phone: Start: 03-13-2024 Hepatitis B surface antibody measurement Dr. Parish Bean Phone: Comment on above: Non Reactive: Not im mune to HBV infection. Equivocal: Unable to determine if anti-HBs is present at levels consistent with immunity. Reactive: Anti-HBs concentration detected at greater than 10 mIU/mL. Individual is considered to be immune to infection with HBV. Start: 03-13-2024 Hepatitis C virus recombinant immunoblot measurement Dr. Parish Bean Phone: Start: 03-13-2024 Measurement of renal function Dr. Parish Graff DO Work Phone: Comment on above: GFR Calc Start: 02-27-2024 Excision JOHN TENORIO MD Comment on above: EXCISION BIOPSY RIGH T AXILLARY LYMPH NODE Start: 05-23-2023 Plain chest X-ray Dr. Monalisa Quintero Work Phone: Start: 02-27-2023 Plain chest X-ray Dr. Monalisa Quintero Work Phone: Start: 02-27-2023 CT of head without contrast Dr. Radha Quintero Work Phone: Start: 02-15-2023 Positron emission tomography with computed tomography Dr. Radha Quintero Work Phone: Start: 12-24-2022 Endoscopic ultrasono [address] of bronchus Dr. Radha Quintero Work Phone: Start: 11-10-2022 Plain chest X-ray Dr. Monalisa Quintero Work Phone: Start: 11-10-2022 CT of head without contrast Dr. Radha Quintero Work Phone: Start: 11-01-2022 CT of abdomen and pe lvis without contrast Dr. Radha Quintero Work Phone: Start: 11-01-2022 CT of head without contrast Dr. Radha Quintero Work Phone: Start: 10-20-2022 CT of head without contrast Dr. Radha Quintero Work Phone: Start: 09-28-[address] of whole body Dr Ramirez Quintero Work Phone: Start: 09-10-2022 MRI of brain without contrast Dr. Radha Quintero Work Phone: Start: 09-10-2022 MRI of cervical spine Michelle Quintero Work Phone: Start: 09-09-2022 CT of head without contrast Dr. Radha Quintero Work Phone: Start: 09-05-2022 CT cervical spine wi thout contrast Dr. Radha Quintero Work Phone: Start: 09-05-2022 CT of chest without contrast Dr. Radha Quintero Work Phone: Start: 09-05-2022 CT of head without contrast Dr. Radha Quintero Work Phone: Start: 04-10-2022 Computed tomography of abdomen and pelvis with intravenous contrast Dr. Radha Quintero Work Phone: Start: 04-10-2022 CT of head without contrast Dr. Radha Quintero Work Phone: Start: 04-10-2022 Plain chest X-ray Dr. Monalisa Quintero Work Phone: Start: 02-05-2022 Computed tomography of soft tissues of neck without contrast No Primary Care Physician Start: 02-05-2022 CT of face No Primary Care Physician Start: 02-05-2022 CT of head without contrast No Primary Care Physician Start: 12-24-2021 Plain chest X-ray No Pr imary Care Physician Start: 11-24-2021 Plain chest X-ray No Pr imary Care Physician Start: 11-06-2021 Radiologic exam ches t 2 views Linda Winkler APRN.BULL BUCKER Work Phone: Start: 10-29-2021 Plain chest X-ray No Pr imary Care Physician Start: 10-08-2021 Ecg routine ecg w/le ast 12 lds trcg only w/o i&r Linda Winkler APRN.BULL BUCKER Work Phone: Start: 10-02-2021 Open heart surgery MONTY ARNULFO GRAFF DO Start: 09-28-2021 History of coronary artery bypass grafting S/P CABG x 3 Krunal Flores LPN Work Phone: Start: 09-15-2021 Urnls dip stick/tabl et rgnt auto w/o microscopy Matt Villegas PA-C Work Phone: Start: 09-11-2021 Antibody screen Comment on above: Order Comment: Speci men Type: BLOOD SPECIMENOrdering Facility: [facility] Address: [address] [place] [address] Performed By: #### T [id number] ####[facility] BLO[facility] BANKCLIA [id number] [address] Start: 09-11-2021 Iadna s aureus ampli fied probe tq Linda Winkler CONTESTANT COORDINATOR.BULL BUCKER Work Phone: Start: 09-02-2021 History of coronary artery bypass grafting History of coronary artery bypass surgery No Primary Care Physician Comment on above: RIBEIRO in situ mammary end to side mid LAD; SVG to ascending aorta end to side diagonal 2; and ELIEL ascending aorta end to side diagonal 1 @ [facility] 09/21/21 Start: 07-23-2021 Ct angiography chest w/contrast/noncontrast Liset Ocampo CONTESTANT COORDINATOR.B[employer] BUCKER Work Phone: Start: 07-21-2021 Antibody screen Comment on above: Order Comment: Speci men Type: BLOOD SPECIMEN Ordering Facility[facility] Address: [address] [place] [address] Performed By: #### T SCR30 #### [facility] BLOOD BANK CLIA [id number] Start: 07-16-2021 Spmtry w/vc expirato ry abimael w/wo mxml vol vntj Forrest Lott CONTESTANT COORDINATOR.B[employer] BUCKER Work Phone: Start: 07-04-2021 CT of abdomen and pe lvis without contrast No Primary Care Physician Start: 06-29-2021 CT of head without contrast No Primary Care Physician Start: 06-29-2021 Plain chest X-ray No Pr imary Care Physician Start: 04-16-2021 Plain chest X-ray No Pr imary Care Physician Start: 04-27-2017 Drainage of Spinal C anal, Percutaneous Approach JOE REY Start: 04-04-2013 Colonoscopy PARISH BINGHAM DO Cardiac care PARISH Azevedo Comment on above: stent placed History of coronary artery bypass grafting S/P CABG x 3 Linda Cooney Cathi CONTESTANT COORDINATOR.B[employer] BUCKER Work Phone: History of coronary artery bypass grafting Status post coronary artery bypass graft No Primary Care Physician History of coronary artery bypass grafting S/P CABG x 3 Linda Cooney Cathi CONTESTANT COORDINATOR.B[employer] BUCKER Work Phone: History of coronary artery bypass grafting S/P CABG x 3 Linda Cooney Cathi CONTESTANT COORDINATOR.B[employer] BUCKER Work Phone: History of coronary artery bypass grafting S/P CABG x 3 PARISH GRAFF DO History of coronary artery bypass grafting S/P CABG x 3 PARISH HILARIOKO DO History of placement of stent for coronary artery disease S/P coronary artery stent placement PARISH HILARIOKO DO History of placement of stent for coronary artery disease S/P coronary artery stent placement PARISH GRAFF DO SARS-CoV-2 & FLU Ant igen (Rapid) No Primary Care Physician Plan of Treatment Date Care Activity Detail Author Start: 10-18-2024 [facility] Start: 09-27-2024 DIABETES SCREEN DIABETES SCREEN [facility] Start: 09-21-2024 DIABETES SCREEN DIABETES SCREEN [facility] Start: 09-11-2024 DIABETES SCREEN DIABETES SCREEN [facility] Start: 07-21-2024 DIABETES SCREEN DIABETES SCREEN [facility] Start: 04-27-2024 End: 04-27-2024 Patient encounter procedure 04/27/2024 1:30 PM EST Office Visit [facility] [address] [place] [id number] Lety Whittington NP [address] [place] [address] [facility] Start: 01-26-2024 End: 01-26-2024 Patient encounter procedure 01/26/2024 2:40 PM EDT Office Visit [facility] [address] [place] [phone] Nilesh Olivas MD [address] [place] [address] Arrived [facility] Comment on above: Arrived Start: 05-23-2023 [facility] Start: 05-23-2023 [facility] Start: 02-27-2023 [facility] Start: 02-15-2023 Positron emission tomography with computed tomography [facility] Start: 02-01-2023 PET study for localization of tumor [facility] Start: 01-12-2023 [facility] Start: 12-24-2022 [facility] ebus guided sampl 04/05 node station/strux [facility] Start: 12-24-2022 Patient discharge [facility] Start: 12-22-2022 Primidone measurement [facility] Start: 11-08-2022 Patient referral [facility] Work Phone: Start: 11-02-2022 Patient discharge [facility] Start: 11-02-2022 [facility] Start: 11-02-2022 Telepractice consultation [facility] Start: 11-02-2022 Assessment of risk of venous thromboembolism [facility] Start: 11-02-2022 Insertion of catheter into peripheral vein [facility] Start: 11-02-2022 Measuring intake and output [facility] Start: 11-02-2022 Oxygen therapy [facility] Start: 11-02-2022 Providing care according to standard [facility] Start: 11-02-2022 Provision of activity privileges [facility] Start: 11-02-2022 Seizure precautions [facility] Start: 11-02-2022 [facility] Start: 11-02-2022 Following clinical pathway protocol [facility] Start: 11-02-2022 Patient referral to dietitian [facility] Start: 11-01-2022 Verification routine [facility] Start: 11-01-2022 Admission procedure [facility] Start: 09-10-2022 Patient discharge [facility] Start: 09-10-2022 Seizure precautions [facility] Start: 09-10-2022 Application of intermittent pneumatic compression device [facility] Start: 09-10-2022 Speech therapy assessment [facility] Start: 09-10-2022 Assessment of risk of venous thromboembolism [facility] Start: 09-10-2022 Insertion of catheter into peripheral vein [facility] Start: 09-10-2022 Measuring intake and output [facility] Start: 09-10-2022 Oxygen therapy [facility] Start: 09-10-2022 Providing care according to standard [facility] Start: 09-10-2022 Provision of activity privileges [facility] Start: 09-10-2022 Referral to occupational therapist [facility] Start: 09-10-2022 Referral to service [facility] Start: 09-10-2022 [facility] Start: 09-10-2022 Following clinical pathway protocol [facility] Start: 09-10-2022 Patient referral to dietitian [facility] Start: 09-09-2022 Admission procedure [facility] Start: 09-05-2022 Repair complex f/c/c/m/n/ax/g/h/f 2.6-7.5 cm [facility] Start: 09-05-2022 Repair complex f/c/c/m/n/ax/g/h/f ea addl 5 cm/< [facility] Start: 01-14-2022 Patient referral to dietitian [facility] Work Phone: Start: 12-24-2021 Evaluation of diagnostic study results [facility] Work Phone: Start: 12-11-2021 [facility] Work Phone: Start: 12-11-2021 Patient referral to dietitian [facility] Work Phone: Start: 12-03-2021 Influenza vaccination [facility] Start: 11-24-2021 Patient referral [facility] Work Phone: Start: 10-29-2021 [facility] Work Phone: Start: 10-16-2021 US.doppler Lower extremity vein [facility] Work Phone: Start: 10-16-2021 [facility] Start: 09-11-2021 End: 08-21-2022 CBC panel - Blood by Automated count CBC Lab Routine Coronary artery disease involving catawba coronary artery of catawba heart without angina pectoris Preoperative testing Expected: 09/11/2021, Expires: 08/21/2022 [facility] Work Phone: Comment on above: Expected: 09/11/2021, Expires: 3 Start: 09-11-2021 End: 08-21-2022 Comprehensive metabolic 2000 panel - Serum or Plasma COMP METABOLIC PANEL Lab Routine Coronary artery disease involving c[place]ba coronary artery of c[place] heart without angina pectoris Preoperative testing Expected: 09/11/2021, Expires: 08/21/2022 [facility] Work Phone: Comment on above: Expected: 09/11/2021, Expires: 3 Start: 09-11-2021 End: 08-21-2022 PT panel - Platelet poor plasma by Coagulation assay PROTHROMBIN TIME/PT Lab Routine Coronary artery disease involving catawba coronary artery of c[place] heart without angina pectoris Preoperative testing Expected: 09/11/2021, Expires: 08/21/2022 [facility] Work Phone: Comment on above: Expected: 09/11/2021, Expires: 3 Start: 09-09-2021 Patient referral [facility] Work Phone: Start: 08-21-2021 End: 10-21-2021 Magnesium [Mass/volume] in Serum or Plasma MAGNESIUM BLD Lab Routine Coronary artery disease involving cata[place]ba coronary artery of cata[place] heart without angina pectoris Preoperative testing Expected: 08/21/2021, Expires: 10/21/2021 [facility] Work Phone: Comment on above: Expected: 08/21/2021, Expires: 2 Start: 08-21-2021 End: 10-21-2021 TYPE AND SCREEN,30 DAY TYPE AND SCREEN,30 DAY Blood Bank Routine Coronary artery disease involving catawba coronary artery of c[place] heart without angina pectoris Preoperative testing Expected: 08/21/2021, Expires: 10/21/2021 [facility] Work Phone: Comment on above: Expected: 08/21/2021, Expires: 2 Start: 08-21-2021 End: 10-21-2021 Urinalysis complete panel - Urine UA WITH CULTURE IF INDICATED Lab Routine Coronary artery disease involving c[place]ba coronary artery of c[place] heart without angina pectoris Preoperative testing Expected: 08/21/2021, Expires: 10/21/2021 [facility] Work Phone: Comment on above: Expected: 08/21/2021, Expires: 2 Start: 07-27-2021 End: 06-25-2022 CBC panel - Blood by Automated count CBC Lab Routine 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) Preoperative testing Disorder of arteries and arterioles (HCC) Cerebrovascular accident (CVA), unspecified mechanism (HCC) Expected: 07/27/2021, Expires: 06/25/2022 [facility] Work Phone: Comment on above: Expected: 07/27/2021, Expires: 3 Start: 07-27-2021 End: 06-25-2022 Comprehensive metabolic 2000 panel - Serum or Plasma COMP METABOLIC PANEL Lab Routine 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) Preoperative testing Disorder of arteries and arterioles (HCC) Cerebrovascular accident (CVA), unspecified mechanism (HCC) Expected: 07/27/2021, Expires: 06/25/2022 [facility] Work Phone: Comment on above: Expected: 07/27/2021, Expires: 3 Start: 07-27-2021 End: 09-26-2021 Hemoglobin A1c/Hemoglobin.total in Blood HGB A1C Lab Routine 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) Preoperative testing Disorder of arteries and arterioles (HCC) Cerebrovascular accident (CVA), unspecified mechanism (HCC) Expected: 07/27/2021, Expires: 09/26/2021 [facility] Work Phone: Comment on above: Expected: 07/27/2021, Expires: 2 Start: 07-27-2021 End: 09-26-2021 Magnesium [Mass/volume] in Serum or Plasma MAGNESIUM BLD Lab Routine 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) Preoperative testing Disorder of arteries and arterioles (HCC) Cerebrovascular accident (CVA), unspecified mechanism (HCC) Expected: 07/27/2021, Expires: 09/26/2021 [facility] Work Phone: Comment on above: Expected: 07/27/2021, Expires: 2 Start: 07-27-2021 End: 06-25-2022 PT panel - Platelet poor plasma by Coagulation assay PROTHROMBIN TIME/PT Lab Routine 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) Preoperative testing Disorder of arteries and arterioles (HCC) Cerebrovascular accident (CVA), unspecified mechanism (HCC) Expected: 07/27/2021, Expires: 06/25/2022 [facility] Work Phone: Comment on above: Expected: 07/27/2021, Expires: 3 Start: 07-27-2021 End: 06-25-2022 SARS-CoV-2 (COVID-19) RNA [Presence] in Respiratory specimen by LATRICE with probe detection PRE-PROCEDURE & PRE-OPERATIVE COVID Microbiology Routine 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) Preoperative testing Disorder of arteries and arterioles (HCC) Cerebrovascular accident (CVA), unspecified mechanism (HCC) Expected: 07/27/2021, Expires: 06/25/2022 [facility] Work Phone: Comment on above: Expected: 07/27/2021, Expires: 3 Start: 07-27-2021 End: 09-26-2021 Thyrotropin [Units/volume] in Serum or Plasma TSH BLD Lab Routine 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) Preoperative testing Disorder of arteries and arterioles (HCC) Cerebrovascular accident (CVA), unspecified mechanism (HCC) Expected: 07/27/2021, Expires: 09/26/2021 [facility] Work Phone: Comment on above: Expected: 07/27/2021, Expires: 2 Start: 07-27-2021 End: 09-26-2021 TYPE AND SCREEN,30 DAY TYPE AND SCREEN,30 DAY Blood Bank Routine 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) Preoperative testing Disorder of arteries and arterioles (HCC) Cerebrovascular accident (CVA), unspecified mechanism (HCC) Expected: 07/27/2021, Expires: 09/26/2021 [facility] Work Phone: Comment on above: Expected: 07/27/2021, Expires: 2 Start: 07-27-2021 End: 09-26-2021 Urinalysis complete panel - Urine UA WITH CULTURE IF INDICATED Lab Routine 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) Preoperative testing Disorder of arteries and arterioles (HCC) Cerebrovascular accident (CVA), unspecified mechanism (HCC) Expected: 07/27/2021, Expires: 09/26/2021 [facility] Work Phone: Comment on above: Expected: 07/27/2021, Expires: 2 Start: 06-26-2021 End: 08-26-2021 CONFIRM BLOOD TYPE CONFIRM BLOOD TYPE Blood Bank Routine Preoperative testing Expected: 06/26/2021, Expires: 08/26/2021 [facility] Work Phone: Comment on above: Expected: 06/26/2021, Expires: 2 Start: 06-02-2021 Patient referral [facility] Work Phone: Start: 05-12-2021 ANNUAL PCP TEAM CHRONIC DISEASE VISIT ANNUAL PCP TEAM CHRONIC DISEASE VISIT [facility] Start: 04-04-2021 ADVANCE DIRECTIVE DISCUSSION ADVANCE DIRECTIVE DISCUSSION [facility] Start: 12-03-2020 Influenza vaccination INFLUENZA (#1) [facility] Start: 07-31-2019 PNEUMOVAX AGE 65 AND OVER WITH 5YR LOOKBACK (#1) PNEUMOVAX AGE 65 AND OVER WITH 5YR LOOKBACK (#1) [facility] Start: 2009 Influenza vaccination LUNG CANCER SCREENING [facility] Start: 2009 PROSTATE CANCER SCREENING DISCUSSION PROSTATE CANCER SCREENING DISCUSSION [facility] Start: 2004 Influenza vaccination LUNG CANCER SCREENING [facility] Start: 2004 SHINGRIX VACCINE (1 of 2) SHINGRIX VACCINE (1 of 2) [facility] Start: 07-31-1999 COLOGUARD (FIT-DNA) COLOGUARD (FIT-DNA) [facility] Start: 07-31-1999 Colonoscopy COLONOSCOPY [facility] Start: 07-31-1999 COLORECTAL CANCER SCREENING COLORECTAL CANCER SCREENING [facility] Start: 07-31-[address] COLONOGRAPHY [facility] Start: 07-31-1999 DIABETES SCREEN DIABETES SCREEN [facility] Start: 07-31-1999 FECAL OCCULT BLOOD FECAL OCCULT BLOOD [facility] Start: 07-31-1999 SIGMOIDOSCOPY SIGMOIDOSCOPY [facility] Start: 1989 LIPID SCREEN LIPID SCREEN [facility] Start: 1984 Zoledronic acid therapy ALPHA-1 ANTITRYPSIN DEFICIENCY SCREENING [facility] Start: 1973 Urine microalbumin profile DTAP,TDAP,TD (1 - Tdap) [facility] Start: 1972 Hepatitis B surface antibody level LDL CHOLESTEROL [facility] Start: 1972 HEPATITIS C SCREENING HEPATITIS C SCREENING [facility] Start: 1966 Adult depression screening assessment DEPRESSION SCREENING [facility] Start: 1960 PNEUMOCOCCAL: 65+ (1 - PCV) PNEUMOCOCCAL: 65+ (1 - PCV) [facility] Start: 07-31-1959 COVID-19 VACCINE (#1) COVID-19 VACCINE (#1) [facility] Start: 07-31-1959 COVID-19 VACCINE (1) COVID-19 VACCINE (1) [facility] Start: 01-29-1955 COVID-19 VACCINE (#1) COVID-19 VACCINE (#1) [facility] Start: 1954 ABDOMINAL AORTIC ANEURYSM SCREENING ABDOMINAL AORTIC ANEURYSM SCREENING [facility] Bacteria identified in Urine by Culture URINE CULTURE Microbiology Routine Hematuria, unspecified type 09/15/2021 2:21 PM EDT [facility] Work Phone: Blood ammonia measurement [facility] Work Phone: Blood ammonia measurement [facility] Blood ammonia measurement [facility] Blood chemistry [facility] Work Phone: CARDIAC REHAB II OUT [place] ([place] CARDIAC RE[place]AB [place] BIC Routine S/P CABG x 3 Ordered: 10/16/2021 [facility] Work Phone: Comment on above: Ordered: 10/16/2021 CBC W Auto Different ial panel - Blood [facility] CBC W Auto Different ial panel - Blood [facility] Complete blood count [facility] Comprehensive metabo lic 2000 panel - Serum or Plasma [facility] CT Abdomen W contrast IV [facility] Work Phone: End: 08-21-2022 Ct angiography chest w/contrast/noncontrast CTA CHEST (GATED) WO/W IVCON Radiology Routine 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) Preoperative testing Disorder of arteries and arterioles (HCC) 1 Occurrences starting 07/22/2021 until 08/21/2022 [facility] Work Phone: Comment on above: 1 Occurrences starting 07/22/2021 until 08/21/2022 CT Chest [facility] CT Chest WO contrast [facility] Electroencephalogram [facility] Work Phone: Evaluation of diagno stic study results [facility] Work Phone: End: 10-16-2022 EXERCISE STRESS ECG (WITHOUT IMAGING) EXERCISE STRESS ECG (WITHOUT IMAGING) Cardiology Routine S/P CABG x 3 1 Occurrences starting 10/16/2021 until 10/16/2022 [facility] Work Phone: Comment on above: 1 Occurrences starting 10/16/2021 until 10/16/2022 Lactate dehydrogenas e measurement [facility] Lamotrigine measurement [facility] Work Phone: Lamotrigine measurement [facility] Lamotrigine measurement [facility] Lamotrigine measurement [facility] Magnesium [Mass/volu me] in Serum or Plasma [facility] Partial thromboplast in time, activated [facility] Patient Education [facility] Work Phone: Patient referral [facility] Work Phone: PHENobarbital [Mass/ volume] in Serum or Plasma [facility] PHENobarbital [Prese nce] in Serum or Plasma [facility] Platelets [#/volume] in Blood [facility] Positron emission to mography with computed tomography [facility] POST VOID RESIDUAL POST VOID RES IDUAL Procedures Routine Hematuria, unspecified type Ordered: 09/15/2021 [facility] Work Phone: Comment on above: Ordered: 09/15/2021 Primidone [Mass/volu me] in Serum or Plasma [facility] Primidone measurement [facility] Prostate specific an tigen measurement [facility] Prothrombin time [facility] End: 11-16-2022 Radiologic exam chest 2 views XR CHEST 2V FRONTAL/LAT Radiology Routine S/P CABG x 3 1 Occurrences starting 10/16/2021 until 11/16/2022 [facility] Work Phone: Comment on above: 1 Occurrences starting 10/16/2021 until 11/16/2022 Radiologic exam ches t 2 views XR CHEST 2V FRONTAL/LAT Radiology Routine S/P CABG x 3 11/06/2021 2:02 PM EDT [facility] Work Phone: Thyroid stimulating hormone measurement [facility] Vitamin D, 25-hydrox y measurement [facility] Immunizations Immunization Date Immunization Notes Care Provider [facility] 01-12-2024 Pneumococcal conjuga te PCV20, polysaccharide LTP222 conjugate, adjuvant, PF; Translations: [Prevnar 20] PARISH GRAFF DO [facility] 01-12-2024 influenza, high dose seasonal, preservative-free; Translations: [Fluad PF Prefilled Syringe ] PARISH GRAFF DO [facility] 02-05-2022 tetanus toxoid, redu chantel diphtheria toxoid, and acellular pertussis vaccine, adsorbed No Primary Care Physician [facility] 01-02-2018 Influenza virus vaccine No P [facility] Care Physician [facility] Payers Date Payer Category Payer Self-pay [id number] 2024 Private Health Insurance [id number] 2024 Unknown [id number] 2024 Self-pay [id number] 2023 Unknown [id number] 2022 Medicare (Managed Care) [employer] [id number] 2022 Unknown [id number] 2019 Medicare [id number]. [id number]. [id number] 2019 Medicare [id number] 2018 Medicaid [id number]. [id number]. [id number] 2018 Medicare [id number] [id number]. [id number] 1954 Unknown [id number] 2.16.840.1.242019.3.579.2. 627 1954 Unknown [id number] 2.16.840.1.651244.3.579.2. 62 1954 Unknown [id number] 2.16.840.1.119577.3.579.2. 62 1954 Unknown [id number] 2.16.840.1.704930.3.579.2. 62 1954 Unknown [id number] 2.16.840.1.379624.3.579.2. 62 1954 Unknown [id number] 2.840.1.510276.3.579.2. 62 1954 Unknown [id number] 2.840.1.336146.3.579.2. 62 1954 Unknown [id number] 2.840.1.870979.3.579.2. 1954 Unknown [id number] 2.840.1.831685.3.579.2. 62 1954 Unknown [id number] 2.840.1.752664.3.579.2. 1954 Unknown [id number] 2.840.1.634416.3.579.2. 62 1954 Unknown [id number] 2.16840.1.890735.3.579.2. 62 1954 Unknown [id number] 2.16840.1.387506.3.579.2. 62 1954 Unknown [id number] 2.16840.1.036292.3.579.2. 1259 1954 Unknown [id number] 2.16.840.1.864907.3.579.2. 1259 1954 Unknown [id number] 2.16840.1.089148.3.579.2. 7 1954 Unknown [id number] .840.1.434827.3.579.2. 62 1954 Unknown [id number] 2.840.1.299960.3.579.2. 1954 Unknown [id number] .840.1.063435.3.579.2. 1954 Unknown [id number] .840.1.443362.3.579.2. 62 1954 Unknown [id number] .840.1.965837.3.579.2. 1954 Unknown [id number] .840.1.479452.3.579.2. 1955 Unknown [id number] 840.1.123327.3.579.2. 1955 Unknown [id number] 840.1.344409.3.579.2. 1955 Unknown [id number] 05.20.830.1.708742.3.579.2. 1955 Unknown [id number] .840.1.950497.3.579.2. 627 Unknown [id number] Unknown [id number] 840.1.410483.3.579.2. 462 Unknown [id number] 840.1.608211.3.579.2. 462 Unknown [id number] 840.1.842690.3.579.2. 462 Unknown [id number] 840.1.073971.3.579.2. 462 Unknown [id number] .840.1.619507.3.579.2. 462 Unknown [id number] 840.1.554061.3.579.2. 462 Unknown [id number] 2.16.840.1.739111.3.579.2. 462 Unknown [id number] 2.16.840.1.849743.3.579.2. 462 Unknown [id number] 2.16.840.1.424525.3.579.2. 462 Unknown [id number] 2.16.840.1.748523.3.579.2. 462 Unknown [id number] 2.16.840.1.845769.3.579.2. 462 Unknown [id number] 2.16.840.1.722966.3.579.2. 462 Unknown [id number] 2.16.840.1.116736.3.579.2. 462 Unknown [id number] 2.16.840.1.618463.3.579.2. 462 Unknown [id number] 2.16.840.1.353078.3.579.2. 462 Unknown [id number] 2.16.840.1.811059.3.579.2. 462 Social History Date Type Detail Facility Start: 02-04-2017 End: 11-23-2022 Tobacco smoking status TXIS Smokes tobacco daily [facility] End: 04-04-1950 History of tobacco use Cigarette Smoker [facility] Start: 02-04-2017 End: 01-26-2024 Cigarettes smoked current (pack per day) - Reported 1.5 [facility] Start: 02-04-2017 End: 11-23-2022 Tobacco use and exposure Smokeless tobacco non-user [facility] Start: 06-25-2021 End: 11-06-2021 Alcohol intake Current drinker of alcohol (finding) [facility] Start: 06-15-2021 History SDOH Alcohol Comment 0-2 drinks per day [facility] Start: 1955 Sex Assigned At Not on file [facility] Start: 06-15-2021 End: 11-06-2021 Exposure to SARS-CoV-2 (event) Not sure [facility] Start: 07-04-2021 End: 05-23-2023 Tobacco smoking status NHIS Unknown if ever smoked [facility] Start: 08-21-2020 Occasional [facility] Start: 08-21-2020 None [facility] Start: 02-12-2018 [facility] Start: 08-21-2020 Cigarettes [facility] Start: 1955 Sex Assigned At Male [facility] Start: 07-10-2021 End: 07-20-2021 Exposure to SARS-CoV-2 (event) Unable to assess [facility] Work Phone: Start: 07-24-2021 History SDOH Alcohol Comment 1 drink per month [facility] Start: 10-13-2022 Tobacco smoking status Smoker (findi ng) [facility] Sex Assigned At [facility] Start: 01-11-2023 End: 03-13-2024 Tobacco smoking status Heavy tobacco smoker (finding) [facility] Start: 04-22-2023 End: 01-26-2024 Alcoholic beverage intake Lifetime non-drinker (finding) [facility] Start: 04-22-2023 End: 01-26-2024 Tobacco use panel [facility] Start: 05-13-2005 Sex Male (finding) [facility] Medical Equipment Procedure Code Equipment Code Equipment Origin al Text Equipment Identifier Dates Low Profile Ster nal X-Plate 8 Holes [id number] Start: 09-21-2021 See Instructions , dispense 200 glucose test strips; check blood sugar twice daily (fasting and before bed), 3 refills, dx E16.2, # 200 EA, 3 Refill(s), Pharmacy: [facility], Hypoglycemia, 176.5, cm, 03/04/23 8:32:00 EST, Height, 67.4, kg, 03/04/23 8:32:00 EST, Dosing Weight Start: 03-04-2023 See Instructions , dispense 200 lancets; check blood sugar twice daily (fasting and before bed), 3 refills, dx E16.2, # 200 EA, 3 Refill(s), Pharmacy: [facility], Hypoglycemia, 176.5, cm, 03/04/23 8:32:00 EST, Height, 67.4, kg, 03/04/23 8:32:00 EST, Dosing Weight Start: 03-04-2023 See Instructions , dispense 200 glucose test strips; check blood sugar twice daily (fasting and before bed), 3 refills, dx E16.2, # 200 EA, 3 Refill(s), Pharmacy: [place] [facility] [id number], Hypoglycemia, 176.5, cm, 03/04/23 8:32:00 EST, Height, 67.4, kg, 03/04/23 8:32:00 EST, Dosing Weight Start: 03-04-2023 See Instructions , dispense 200 lancets; check blood sugar twice daily (fasting and before bed), 3 refills, dx E16.2, # 200 EA, 3 Refill(s), Pharmacy: [facility] [id number], Hypoglycemia, 176.5, cm, 03/04/23 8:32:00 EST, Height, 67.4, kg, 03/04/23 8:32:00 EST, Dosing Weight Start: 03-04-2023 See Instructions , dispense 200 glucose test strips; check blood sugar twice daily (fasting and before bed), 3 refills, dx E16.2, # 200 EA, 3 Refill(s), Pharmacy: [place] [facility] [id number], Hypoglycemia, 176.5, cm, 03/04/23 8:32:00 EST, Height, 67.4, kg, 03/04/23 8:32:00 EST, Dosing Weight Start: 03-04-2023 See Instructions , dispense 200 lancets; check blood sugar twice daily (fasting and before bed), 3 refills, dx E16.2, # 200 EA, 3 Refill(s), Pharmacy: [place] [facility] [id number], Hypoglycemia, 176.5, cm, 03/04/23 8:32:00 EST, Height, 67.4, kg, 03/04/23 8:32:00 EST, Dosing Weight Start: 03-04-2023 See Instructions , dispense 200 glucose test strips; check blood sugar twice daily (fasting and before bed), 3 refills, dx E16.2, # 200 EA, 3 Refill(s), Pharmacy: [place] [facility] [id number], Hypoglycemia, 176.5, cm, 03/04/23 8:32:00 EST, Height, 67.4, kg, 03/04/23 8:32:00 EST, Dosing Weight Start: 03-04-2023 See Instructions , dispense 200 lancets; check blood sugar twice daily (fasting and before bed), 3 refills, dx E16.2, # 200 EA, 3 Refill(s), Pharmacy: [place] [facility] [id number], Hypoglycemia, 176.5, cm, 03/04/23 8:32:00 EST, Height, 67.4, kg, 03/04/23 8:32:00 EST, Dosing Weight Start: 03-04-2023 See Instructions , dispense 200 glucose test strips; check blood sugar twice daily (fasting and before bed), 3 refills, dx E16.2, # 200 EA, 3 Refill(s), Pharmacy: [place] [facility] [id number], Hypoglycemia, 176.5, cm, 03/04/23 8:32:00 EST, Height, 67.4, kg, 03/04/23 8:32:00 EST, Dosing Weight Start: 03-04-2023 See Instructions , dispense 200 lancets; check blood sugar twice daily (fasting and before bed), 3 refills, dx E16.2, # 200 EA, 3 Refill(s), Pharmacy: [place] [facility] [id number], Hypoglycemia, 176.5, cm, 03/04/23 8:32:00 EST, Height, 67.4, kg, 03/04/23 8:32:00 EST, Dosing Weight Start: 03-04-2023 See Instructions , dispense 200 glucose test strips; check blood sugar twice daily (fasting and before bed), 3 refills, dx E16.2, # 200 EA, 3 Refill(s), Pharmacy: [place] [id number], Hypoglycemia, 176.5, cm, 03/04/23 8:32:00 EST, Height, 67.4, kg, 03/04/23 8:32:00 EST, Dosing Weight Start: 03-04-2023 See Instructions , dispense 200 lancets; check blood sugar twice daily (fasting and before bed), 3 refills, dx E16.2, # 200 EA, 3 Refill(s), Pharmacy: [place] [facility] [id number], Hypoglycemia, 176.5, cm, 03/04/23 8:32:00 EST, Height, 67.4, kg, 03/04/23 8:32:00 EST, Dosing Weight Start: 03-04-2023 See Instructions , dispense 200 glucose test strips; check blood sugar twice daily (fasting and before bed), 3 refills, dx E16.2, # 200 EA, 3 Refill(s), Pharmacy: [place] [facility] [id number], Hypoglycemia, 176.5, cm, 03/04/23 8:32:00 EST, Height, 67.4, kg, 03/04/23 8:32:00 EST, Dosing Weight Start: 03-04-2023 See Instructions , dispense 200 lancets; check blood sugar twice daily (fasting and before bed), 3 refills, dx E16.2, # 200 EA, 3 Refill(s), Pharmacy: [place] [facility] [id number], Hypoglycemia, 176.5, cm, 03/04/23 8:32:00 EST, Height, 67.4, kg, 03/04/23 8:32:00 EST, Dosing Weight Start: 03-04-2023 See Instructions , dispense 200 glucose test strips; check blood sugar twice daily (fasting and before bed), 3 refills, dx E16.2, # 200 EA, 3 Refill(s), Pharmacy: [place] [facility] [id number], Hypoglycemia, 176.5, cm, 03/04/23 8:32:00 EST, Height, 67.4, kg, 03/04/23 8:32:00 EST, Dosing Weight Start: 03-04-2023 See Instructions , dispense 200 lancets; check blood sugar twice daily (fasting and before bed), 3 refills, dx E16.2, # 200 EA, 3 Refill(s), Pharmacy: [place] [id number], Hypoglycemia, 176.5, cm, 03/04/23 8:32:00 EST, Height, 67.4, kg, 03/04/23 8:32:00 EST, Dosing Weight Start: 03-04-2023 See Instructions , dispense 200 glucose test strips; check blood sugar twice daily (fasting and before bed), 3 refills, dx E16.2, # 200 EA, 3 Refill(s), Pharmacy: [place] [id number], Hypoglycemia, 176.5, cm, 03/04/23 8:32:00 EST, Height, 67.4, kg, 03/04/23 8:32:00 EST, Dosing Weight Start: 03-04-2023 See Instructions , dispense 200 lancets; check blood sugar twice daily (fasting and before bed), 3 refills, dx E16.2, # 200 EA, 3 Refill(s), Pharmacy: [place] [facility] [id number], Hypoglycemia, 176.5, cm, 03/04/23 8:32:00 EST, Height, 67.4, kg, 03/04/23 8:32:00 EST, Dosing Weight Start: 03-04-2023 See Instructions , dispense 200 glucose test strips; check blood sugar twice daily (fasting and before bed), 3 refills, dx E16.2, # 200 EA, 3 Refill(s), Pharmacy: [place] [facility] [id number], Hypoglycemia, 176.5, cm, 03/04/23 8:32:00 EST, Height, 67.4, kg, 03/04/23 8:32:00 EST, Dosing Weight Start: 03-04-2023 See Instructions , dispense 200 lancets; check blood sugar twice daily (fasting and before bed), 3 refills, dx E16.2, # 200 EA, 3 Refill(s), Pharmacy: [place] [facility] [id number], Hypoglycemia, 176.5, cm, 03/04/23 8:32:00 EST, Height, 67.4, kg, 03/04/23 8:32:00 EST, Dosing Weight Start: 03-04-2023 See Instructions , dispense 200 glucose test strips; check blood sugar twice daily (fasting and before bed), 3 refills, dx E16.2, # 200 EA, 3 Refill(s), Pharmacy: [place] [id number], Hypoglycemia, 176.5, cm, 03/04/23 8:32:00 EST, Height, 67.4, kg, 03/04/23 8:32:00 EST, Dosing Weight Start: 03-04-2023 See Instructions , dispense 200 lancets; check blood sugar twice daily (fasting and before bed), 3 refills, dx E16.2, # 200 EA, 3 Refill(s), Pharmacy: [place] [id number], Hypoglycemia, 176.5, cm, 03/04/23 8:32:00 EST, Height, 67.4, kg, 03/04/23 8:32:00 EST, Dosing Weight Start: 03-04-2023 See Instructions , dispense 200 glucose test strips; check blood sugar twice daily (fasting and before bed), 3 refills, dx E16.2, # 200 EA, 3 Refill(s), Pharmacy: [facility], Hypoglycemia, 176.5, cm, 03/04/23 8:32:00 EST, Height, 67.4, kg, 03/04/23 8:32:00 EST, Dosing Weight Start: 03-04-2023 See Instructions , dispense 200 lancets; check blood sugar twice daily (fasting and before bed), 3 refills, dx E16.2, # 200 EA, 3 Refill(s), Pharmacy: [facility], Hypoglycemia, 176.5, cm, 03/04/23 8:32:00 EST, Height, 67.4, kg, 03/04/23 8:32:00 EST, Dosing Weight Start: 03-04-2023 Goals Date Patient Goal Desired Activity /State Functional Status Date Assessment Result Facility 08-04-2024 Functional Status Standard Safet y ID band on, Allergy Band on, Call device within reach, Bed in low position, Bedside Cart Locked, Safety level maintained [facility] 08-04-2024 Functional Status [facility] 02-27-2024 Functional Status bilateral knee high applied/on [facility] 02-27-2024 Functional Status Maintained, More than [address] [facility] 02-23-2024 Functional Status Sensory Deficits None A [facility] 11-02-2022 Functional status Ambulates [facility] Work Phone: 09-15-2022 Functional Status Done [facility] 09-15-2022 Functional Status Room check performed [facility] 09-15-2022 Functional Status bilateral knee high [facility] 09-14-2022 Functional Status [facility] 09-14-2022 Functional Status [facility] 09-14-2022 Functional Status Mod I [facility] 09-14-2022 Functional Status [facility] 09-14-2022 Functional Status Done [facility] 09-13-2022 Functional Status [facility] 09-10-2022 Functional status Ambulates;Assi st with Urinal;Stand with Urinal [facility] Work Phone: Mental Status Date Assessment Result Facility 08-04-2024 Mental Status Oriented x 4 [facility] 08-04-2024 Mental Status [facility] 02-27-2024 Mental Status [facility] x [facility] 02-27-2024 Mental Status [facility] 05-23-2023 Cognitive function Voice/Name [facility] Work Phone: 02-27-2023 Cognitive function Awake;Alert;Follows Co mmands [facility] Work Phone: 12-24-2022 Cognitive function Appropriate;Drowsy [facility] Work Phone: 12-24-2022 Cognitive function Person;Place;Time [facility] Work Phone: 12-09-2022 Cognitive function Touch/Shaking [facility] Work Phone: 11-10-2022 Cognitive function Awake;Alert;A ppropriate;Follow s Commands [facility] Work Phone: 11-02-2022 Cognitive function Voice/Name [facility] Work Phone: 11-01-2022 Cognitive function Voice/Name [facility] Work Phone: 10-20-2022 Cognitive function Voice/Name;Touch/Shaki ng [facility] Work Phone: 09-15-2022 Mental Status [facility] x 4 [facility] 09-15-2022 [facility] 09-14-2022 [facility]-13-2022 Mental Status [facility] 09-10-2022 Cognitive function Voice/Name [facility] Work Phone: 04-11-2022 Cognitive function Voice/Name [facility] Work Phone: 02-05-2022 Cognitive function Level Of Cons ciousness Awake;Alert;Appropriate [facility] Work Phone: 10-29-2021 Cognitive function Voice/Name [facility] Work Phone: 06-29-2021 Cognitive function Level Of Cons ciousness Awake;Alert;Appropriate;Follow s Commands [facility] Work Phone: Clinical Notes 05-12-2020 to 10-18-2024 Note Date & Type Note Facility 10-18-2024 Progress note [facility] 10-18-2024 Progress note Note Date/Time October 18, 2024 2:03pm [facility] twiDAQ ealt [facility] [address] [place] [id number] OFFICE VISIT Date of Service: 10/18/24 1324 MR#: [id number] Acct: [id number] Name: RADHA BRENNAN Rep #: [id number] : 1955 From: Aide Taylor ch, NP [employer] Age/Sex: 69/M Location: [facility] Status: Signed HPI Subjective Date of Service 10/18/24 Chief Complaint Lymphoma History of Present Illness 69-year-old male who presented with a few months history of progressively enlarging painless lymph nodes first noted in the groins then the axillae and finally the neck. No B symptoms. February 28, 2024 right axillary lymph node excisional biopsy: Small lymphocyticlymphoma coexpressing CD5 and CD20. Flow cytometry was performed consistent with the above diagnosis. March 20, 2024 PET/CT: IMPRESSION: 1. Increased radiopharmaceutical concentration defined in the bilateral axilla, right retropectoral region, right and left thoracic perihilum, and left inguinal region fulfill quantitative criteria for viable neoplasm. (Mikel et al, Journal of Clinical Oncology, 32: 3059, 2014). 2. Overall, compared to the prior FDG-PET CT study dated 02/15/2023, there is interim development of defined viable neoplastic disease. Interval History The patient is presenting to clinic today for routine 3-month follow-up. He denies any concerns related to today's visit. Notes he has lost some weight but believes it is related to sweating a lot in the 90 heat. Otherwise, he denies night sweats, dysphagia, abdominal pain, overt bleeding/abnormal bruising, and swelling or pain of his extremities. Patient reports enlarged lymph nodes within bilateral axilla and groin are unchanged in size and remain nontender. [facility] Medical History Small lymphocytic lymphoma Prediabetes Lung nodules Iron deficiency Insomnia Folic acid deficiency Costochondritis Cognitive impairment Cachexia GERD (gastroesophageal reflux disease) Small cell B-cell lymphoma Wears dentures Wears glasses Depression Alcohol use High cholesterol Excessive bleeding Migraine headache Injury of head and neck Parkinson's disease Tremor Gastric reflux Smoker Normal stress echocardiogram History of echocardiogram Hypertension Cardiology follow-up encounter History of heart attack Scalp wound Scalp pain Complex laceration of scalp Fall from ladder Postoperative atrial fibrillation History of left heart catheterization (LHC) (~05/27/21) Heart valve problem Syncope and collapse Seizure Hyperlipidemia 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 Chronic back pain Atrial septal aneurysm Abnormal electrocardiogram CVA (cerebral vascular accident) Nicotine dependence Surgical History History of cardiac catheterization Hx of neck surgery History of coronary artery bypass surgery (~09/21/21) S/P triple vessel bypass Stented coronary artery (10/06/17) History of lumbar puncture (~04/2017) finger surgery lymph node resection Family History Mother Myocardial infarction Cancer Diabetes COPD (chronic obstructive pulmonary disease) Brother Myocardial infarction Cancer Diabetes Sister Cancer Diabetes Heart disease Father Lung cancer Social History household members: family Smoking Status: Heavy Smoker (>10/day) Tobacco: How many years used: 61 Electronic Cigarette Use: not used second hand exposure: Yes alcohol intake: former year quit: 2014 details: Patient reduced his alcohol intake when 'his lady passed in 2014' substance use type: does not use caffeine: Yes Type: carbonated beverages and coffee ROS ROS Narrative Negative except as documented in the interval HPI Intake Vital Signs 07/10/24 07:52 10/18/24 13:25 10/18/24 13:35 Height 5 ft 8.5 in 5 ft 8.5 in 5 ft 8.5 in Weight: 135 lb 7 oz BMI 20.2 BP 106/63 Blood Pressure Location Lt brachial Position Sitting Respiration 16 Pulse 45 L Pulse Source Monitor Temp 98.0 F Temperature Source Temporal Artery Pulse Oximetry (%) 100 Oxygen Delivery Method room air Intake Is patient in pain?: No Allergies bee venom protein (honey bee) Allergy (Severe, Verified 10/18/24 13:34) Anaphylaxis tuberculin, purified protein deriva Allergy (Severe, Verified 10/18/24 13:34) Swelling Medications ?Medication ?Instructions ?Recorded ?Confirmed ?Type acetaminophen 500 mg capsule 1,000 mg (2 x 500 mg) PO Q6H PRN 02/24/22 10/18/24 Rx pain #120 caps folic acid 1 mg tablet 1 mg PO DAILY supplement #90 tabs 03/30/22 10/18/24 Rx magnesium oxide 400 mg (241.3 mg 400 mg PO DAILY suppl ement #90 tabs 03/30/22 10/18/24 Rx magnesium) tablet ascorbate calcium (vitamin C) 500 500 mg PO DAILY maggie min #90 tabs 06/16/22 10/18/24 Rx mg tablet aspirin 81 mg tablet,delayed 81 mg PO DAILY heart heal th #90 06/16/22 10/18/24 Rx release (Adult Aspirin Regimen) tabs ferrous sulfate 325 mg (65 mg 325 mg PO DAILY suppleme nt #90 tabs 06/16/22 10/18/24 Rx iron) tablet (FeroSul) multivitamin with folic acid 400 1 tab PO DAILY vitami n #90 tabs 06/16/22 10/18/24 Rx mcg tablet (Daily-Tin (with folic acid)) lamotrigine 100 mg tablet 100 mg PO BID seizures #60 t abs 09/09/22 10/18/24 Rx front wheeled walker #1 ea 11/26/22 10/18/24 Rx escitalopram oxalate 10 mg tablet 10 mg PO DAILY #90 t abs 12/15/22 10/18/24 Rx (Lexapro) thiamine HCl (vitamin B1) 100 mg 100 mg PO BID supplem ent 12/22/22 10/18/24 History tablet atorvastatin 80 mg tablet 80 mg PO QDAY 07/28/2310/18 History metoprolol succinate 25 mg 12.5 mg PO QDAY 07/28/23 History tablet,extended release 24 hr epinephrine 0.3 mg/0.3 mL 0.3 mg IM ONCE 03/12/2410/02 History injection, auto-injector (EpiPen 2-Sebastian) mirtazapine 30 mg tablet 30 mg PO QDAY 03/12/2410/18 History pantoprazole 40 mg tablet,delayed 40 mg PO QDAY 10/18/24 History release sennosides 8.6 mg tablet (senna) 8.6 mg PO QDAY 10/18/24 History levetiracetam 500 mg tablet 500 mg PO BID 03/13/24 History pramipexole 0.125 mg tablet 0.125 mg PO TID 03/13/24 0 10/18/24 History primidone 50 mg tablet 50 mg PO Q8H 04/05/24 History nitroglycerin 0.4 mg sublingual 0.4 mg sublingual Q5-1 5M PRN chest 04/10/24 10/18/24 Rx tablet (Nitrostat) pain #25 tabs budesonide 160 mcg-glycopyr 9 2 inh inhalation BID #10 .7 grams 07/18/24 10/18/24 Rx mcg-formot 4.8 mcg/actuation HFA inhaler (Breztri Aerosphere) Have you fallen in the past year?: Yes Central Venous Access Central Venous Access: No Laboratory Tests 10/18/24 12:23 WBC 13.2 H Hgb 12.9 L Hct 37.9 L Plt Count 221 Absolute Neuts (auto) 3.5 Absolute Lymphs (auto) 7.06 H Sodium 140 Potassium 4.0 Chloride 106 Carbon Dioxide 24.6 BUN 22 H Creatinine 0.96 Glucose 101 H Calcium 8.9 Total Bilirubin 0.16 AST 42 H ALT 44 Alkaline Phosphatase 105 Lactate Dehydrogenase 152 Albumin 3.8 Exam Physical Exam Narrative ECOG 1 Const no apparent distress General Appearance: comfortable HEENT Face and Sinus: normal facial exam Mouth: oral and palatal mucosa normal Teeth and Gingiva: dentures Eyes General Eye: normal appearance of both eyes Neck no JVD Lymph Lymphatic: lymphadenopathy Lymphatic Narrative: Generalized lymphadenopathy bilateral axillae and bilateral groins generally 2 to 3 cm Resp Auscultation: diminished lung sounds bilateral and diffuse Cardio regular rate and regular rhythm Jugular Venous Distention: Negative for JVD GI soft to palpation, non-tender and non-distended Palpation: Negative for splenomegaly Back/Spine no thoracic nor lumbar tenderness Extremity no clubbing, cyanosis or edema Skin no rashes or lesions noted Neuro moves all extremities and no focal motor deficits Speech: speech normal Gait (Neuro): normal gait Psych mental status grossly normal Coding Level of Care Code Off vis,est,level 4 Exam Problem Focused Diagnoses Small lymphocytic lymphoma C83.00 Assessment and Plan Assessment and Plan (1) Small lymphocytic lymphoma: Status: Chronic Orders: Orders CBC W/Diff, Automated 3 Months C83.00 - Small cell B-cell lymphoma, unspecifiedsite Comprehensive Metabolic Profil 3 Months C83.00 - Small cell B-cell lymphoma, unspecified site LDH 3 Months C83.00 - Small cell B-cell lymphoma, unspecified site Plan 69-year-old male with small lymphocytic lymphoma (or chronic lymphocytic leukemia) presenting with painless generalized lymphadenopathy, no symptoms. SLL/CLL is an indolent B cell lymphoid malignancy that tends to have a long natural history and is not curable by any standard therapy. Asymptomatic disease is watched. Chronic comorbid conditions: COPD, smoker, multiple lung nodules on surveillanceunder care of pulmonary, tremor, coronary artery disease, seizure disorder, history of cerebrovascular disease, dyslipidemia, history of alcoholism sober for a number of years. Plan: 1. SLL/CLL watchful, no indication for systemic therapy at this time. 2. For multiple lung nodules and high risk cancer he is to continue follow-up with pulmonary. Return to office in 3 months, CBC CMP LDH prior. Clinical Quality Measures Falls Risk Screening/Assistive Devices Have you fallen in the past year?: Yes 10/18/24 1403 <Electronically signed by Aide ramsey NP [employer]> Date _ Aide GUZMANC Cosigner Signature: Date (if applicable) CC: ~ [facility] Work Phone: [phone]) 152-549307-03-2025 Note* Exam Date Time Procedure Performing Provider Status 10/04/24 11:[address] Head or Brain w/o Contrast Valentin JAMES MD; Auth (Verified) [id number] ORIGINAL EXAMINATION: CT OF THE HEAD WITHOUT CONTRAST 10/04/2024 11:41 am TECHNIQUE: CT of the head was performed without the administration of intravenous contrast. Automated exposure control, iterative reconstruction, and/or weight based adjustment of the mA/kV was utilized to reduce the radiation dose to as low as reasonably achievable. COMPARISON: MRI brain 05/30/2024. HISTORY: ORDERING SYSTEM PROVIDED HISTORY: Reason for Exam: Head trauma, moderate-severe Head trauma, moderate-severe FINDINGS: BRAIN/VENTRICLES: There is no acute intracranial hemorrhage, mass effect or midline shift. No abnormal extra-axial fluid collection. 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 The ventricles and sulci are not significantly enlarged. ORBITS: The visualized portion of the orbits demonstrate no acute abnormality. SINUSES: The visualized paranasal sinuses and mastoid air cells demonstrate no acute abnormality. SOFT TISSUES/SKULL: No acute abnormality of the visualized skull or soft tissues. 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 No acute findings. Interpreted by: Clement James Preliminary Report By: Clement James Electronically signed By Clement James Dictated Date: 10/04/2024 11:48:28 AM Prelim Date: 10/04/2024 11:49:57 AM Sign Date: 10/04/2024 11:49:57 AM Ordering Provider: PARISH GRAFF Interpreted by: Clement James Preliminary Report By: Clement James Electronically signed By Clement James Dictated Date: 10/04/2024 11:48:28 AM Prelim Date: 10/04/2024 11:49:57 AM Sign Date: 10/04/2024 11:49:57 AM Ordering Provider: PARISH GRAFF [facility]06-[facility]-2025 Hospital Discharge instructions Patient Education 09/21/2024 18:58:08 Sinusitis (Antibiotic Treatment) Sinusitis (Antibiotic Treatment) The sinuses are air-filled spaces within the bones of the face. They connect to the inside of the nose. Sinusitis is an inflammation of the tissue that lines the sinuses. Sinusitis can occur during acold. It can also happen due to allergies to pollens and other particles in the air. Sinusitis can cause symptoms of sinus congestion and a feeling of fullness. A sinus infection causes fever, headache, and facial pain. There is often green or yellow fluid draining from the nose or into the back ofthe throat (post-nasal drip). You have been given antibiotics to treat this condition. Home care Take the full course of antibiotics as instructed. Do not stop taking them, even when you feel better. Drink plenty of water, hot tea, and other liquids. This may help thin nasal mucus. It also may helpyour sinuses drain fluids. Heat may help soothe painful areas of your face. Use a towel soaked in hot water. Or, architectural engineering teacher the shower and direct the warm spray onto your face. Using a vaporizer along with a menthol rub at nightmay also help soothe symptoms. An expectorant with guaifenesin may help thin nasal mucus and help your sinuses drain fluids. You can use an tplj-lxv-kgmplay decongestant, unless a similar medicine was prescribed to you. Nasal sprays work the fastest. Use one that contains phenylephrine or oxymetazoline. First blow your nose gently. Then use the spray. Do not use these medicines more often than directed on the label. If you do, your symptoms may get worse. You may also take pills that contain pseudoephedrine. Don t use products that combine multiple medicines. This is because side effects may be increased. Read labels. You can also ask the pharmacist for help. (People with high blood pressure should not use decongest ants. They can raise blood pressure.) Oeum-vkv-jwzswkd antihistamines may help if allergies contributed to your sinusitis. Do not use nasal rinses or irrigation during an acute sinus infection, unless your healthcare provider tells you to. Rinsing may spread the infection to other areas in your sinuses. Use acetaminophen or ibuprofen to control pain, unless another pain medicine was prescribed to you.If you have chronic liver or kidney disease or ever had a stomach ulcer, talk with your healthcare provider before using these medicines. (Aspirin should never be taken by anyone under age 18 who is ill with a fever. It may cause severe liver damage.) Don't smoke. This can make symptoms worse. Follow-up care Follow up with your healthcare provider or our staff if you are not better in 1 week. When to seek medical advice Call your healthcare provider if any of these occur: Facial pain or headache that gets worse Stiff neck Unusual drowsiness or confusion Swelling of your forehead or eyelids Vision problems, such as blurred or double vision Fever of 100.4 F (38 C) or higher, or as directed by your healthcare provider Seizure Breathing problems Symptoms don't go away in 10 days Prevention Here are steps you can take to help prevent an infection: Keep good hand washing habits. Don t have close contact with people who have sore throats, colds, or other upper respiratory infections. Don t smoke, and stay away from secondhand smoke. Stay up to date with of your vaccines. 3152-7922 [employer]. [address] [place] [address]. All rights reserved. This information is not intended as a substitute for professional medical care. Always follow yourwayne hospitalcare professional's instructions. 09/21/2024 18:58:03 Bronchitis, No Antibiotic (Adult) Viral Bronchitis (Adult) You have a viral bronchitis. Bronchitis is inflammation and swelling of the lining of the lungs. This is often caused by an infection. Symptoms include a dry, hacking cough that is worse at night. The cough may bring up yellow-green mucus. You may also feel short of breath or wheeze. Other symptomsmay include tiredness, chest discomfort, and chills. Bronchitis that is caused by a virus is not treated with antibiotics. Instead, medicines may be given to help relieve symptoms. Symptoms can last up to 2 weeks, although the cough may last much longer. This illness is contagious during the first few days and is spread through the air by coughing and sneezing, or by direct contact (touching the sick person and then touching your own eyes, nose, or mouth). Most viral illnesses resolve within 10 to 14 days with rest and simple home remedies, although theymay sometimes last for several weeks. Home care If symptoms are severe, rest at home for the first 2 to 3 days. When you go back to your usual activities, don't let yourself get too tired. Do not smoke. Also avoid being exposed to secondhand smoke. You may use sbfs-vov-qkmokiw medicine to control fever or pain, unless another pain medicine was prescribed. If you have chronic liver or kidney disease or have ever had a stomach ulcer or gastrointestinal bleeding, talk with your healthcare provider before using these medicines. Also talk to your provider if you are taking medicine to prevent blood clots. Aspirin should never be given to anyone younger than 18 years of age who is ill with a viral infection or fever. It may cause severe liver or brain damage. Your appetite may be poor, so a light diet is fine. Avoid dehydration by drinking 6 to 8 glasses offluids per day (such as water, soft drinks, sports drinks, juices, tea, or soup). Extra fluids willhelp loosen secretions in the nose and lungs. Nkfa-afw-doulyvc cough, cold, and sore-throat medicines will not shorten the length of the illness,but they may help to reduce symptoms. Don't use decongestants if you have high blood pressure. Follow-up care Follow up with your healthcare provider, or as advised. If you had an X-ray or ECG (electrocardiogram), a specialist will review it. You will be notified of any new findings that may affect your care. If you are age 65 or older, or if you have a chronic lung disease or condition that affects your immune system, or you smoke, ask your healthcare provider about getting a pneumococcal vaccine and a yearly flu shot (influenza vaccine). When to seek medical advice Call your healthcare provider right away if any of these occur: Fever of 100.4 F (38 C) or higher, or as directed by your healthcare provider Coughing up increased amounts of colored sputum Weakness, drowsiness, headache, facial pain, ear pain, or a stiff neck Call 911 Call 911 if any of these occur: Coughing up blood Worsening weakness, drowsiness, headache, or stiff neck Trouble breathing, wheezing, or pain with breathing [phone] [employer]. [address] [place] [address]. All rights reserved. This information is not intended as a substitute for professional medical care. Always follow yourhealthcare professional's instructions. Follow Up Care 09/21/2024 15:50:54 With:PARISH GRAFF DO Address: [address] [place] [phone] When:2-[address] [facility] 06-20-2025 Note Discharge Instructions Thank you for allowing [facility] to assist you with your healthcare needs. The following is importantdischarge information regarding your hospital visit. Diagnosis from Today's Visit Bronchitis Sinusitis What to Do Next Instructions from Your Care Team No qualifying data available. Post Acute Orders No qualifying data available. You Need to Schedule the Following Appointments Follow Up with PARISH GRAFF DO When:Within 2-4 days Where:[address] [place] [address]- [phone] Allergies Bee Stings Unknown, Swelling tuberculin purified protein derivative Unknown Medications Please ask your primary doctor or pharmacist before taking any other medication not listed, including over the counter drugs, herbal medications, vitamins and or supplements as they may interact withyour home medications. What How Much When Why Instructions Last Dose New doxycycline (doxycycline hyclate 100 mg oral capsule) 1 cap by mouth Two (2) times a day Duration: 7 Days Printed Prescription Unchanged acetaminophen (acetaminophen 500 mg oral capsule) 2 cap by mouth Every 4 hours as needed for for fever Unchanged ascorbic acid (Vitamin C 500 mg oral tablet) 1 tab(s) by mouth Once a day Unchanged aspirin (aspirin 81 mg oral delayed release tablet) 1 tab(s) by mouth Once a day Duration: 90 Days Unchanged atorvastatin (atorvastatin 80 mg oral tablet) 1 tab(s) by mouth Once a day Unchanged busPIRone (busPIRone 10 mg oral tablet) 1 tab(s) by mouth Three (3) times a day as needed for stress Unchanged clopidogrel (clopidogrel 75 mg oral tablet) 1 tab(s) by mouth Once a day Duration: 90 Days Unchanged DME (Alcohol Swabs) See instructions Hypoglycemia dispense 200 EtOH wipes; check blood sugar twice daily (fasting and before bed), 3 refills, dx E16.2 Unchanged DME (Blood Glucose Test Machine) See instructions Hypoglycemia dx E16.2 check blood sugar twice daily Unchanged DME (Blood Glucose Test Strips) See instructions Hypoglycemia dispense 200 glucose test strips; check blood sugar twice daily (fasting and before bed), 3 refills, dx E16.2 Unchanged DME (DME MISCellaneous) See instructions dx I10 dispense one automated upper arm spygmomanometer with supplies and digital readout. 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 Unchanged EPINEPHrine (EpiPen 2-Sebastian 0.3 mg injectable kit) 0.3 Milligram Subcutaneous As Directed as needed for Allergic reaction Duration: 2 Doses Unchanged escitalopram (escitalopram 20 mg oral tablet) 1 tab(s) by mouth Once a day Unchanged ferrous sulfate (ferrous sulfate 325 mg (65 mg elemental iron) oral delayed release tablet) 1 tab(s) by mouth Once a day Unchanged folic acid (folic acid 1 mg oral tablet) 1 tab(s) by mouth Once a day Duration: 90 Days Unchanged lamoTRIgine (lamoTRIgine 100 mg oral tablet) 1 tab(s) by mouth Two (2) times a day Duration: 90 Days Unchanged levETIRAcetam (levETIRAcetam 500 mg oral tablet) 1 tab(s) by mouth Once a day Duration: 90 Days Unchanged levothyroxine (levothyroxine 25 mcg (0.025 mg) oral tablet) 1 tab(s) by mouth Once a day before a meal as a single daily dose before breakfast with plenty of water on an empty stomach wait 30 minutes before ingesting anything else Unchanged magnesium oxide (magnesium oxide 400 mg oral tablet) 1 tab(s) by mouth Every day Duration: 90 Days Unchanged metoprolol (metoprolol succinate 25 mg oral TABLET extended release) 0.5 tab(s) by mouth Once a day Duration: 90 Days Do not crush or chew (controlled release) Unchanged mirtazapine (mirtazapine 45 mg oral tablet) 1 tab(s) by mouth Daily at bedtime Duration: 90 Days Unchanged multivitamin (B 100 Complex oral tablet) 1 tab(s) by mouth Every day Duration: 90 Days Unchanged multivitamin (Daily Tin oral tablet) 1 tab(s) by mouth Every day Duration: 90 Days Unchanged multivitamin with minerals (Celebrate Multivitamin oral tablet, chewable) 1 tab(s) Chewed Once a day Duration: 90 Days Unchanged nitroGLYcerin (nitroglycerin 0.3 mg sublingual tablet) 1 tab(s) under the tongue Every 5 minutes as needed for for chest pain Duration: 30 Days Unchanged pantoprazole (pantoprazole 40 mg oral enteric coated tablet) 1 tab(s) by mouth Two (2) times a day Duration: 90 Days Unchanged senna (senna (sennosides) 8.6 mg oral tablet) 2 tab(s) by mouth Daily at bedtime as needed for for constipation Duration: 90 Days Unchanged tamsulosin (tamsulosin 0.4 mg oral capsule) 1 cap by mouth Once a day Unchanged thiamine (thiamine 100 mg oral tablet) 1 tab(s) by mouth Every day Duration: 90 Days Please take this list to your next doctor s visit. Bring all medications you take, including over the counter medications, herbals and other supplements with you to your doctor s visit. Patients and families are reminded to discard old lists and to update any records with all medication providers or retail pharmacies. Education Materials Sinusitis (Antibiotic Treatment) The sinuses are air-filled spaces within the bones of the face. They connect to the inside of the nose. Sinusitis is an inflammation of the tissue that lines the sinuses. Sinusitis can occur during acold. It can also happen due to allergies to pollens and other particles in the air. Sinusitis can cause symptoms of sinus congestion and a feeling of fullness. A sinus infection causes fever, headache, and facial pain. There is often green or yellow fluid draining from the nose or into the back ofthe throat (post-nasal drip). You have been given antibiotics to treat this condition. Home care Take the full course of antibiotics as instructed. Do not stop taking them, even when you feel better. Drink plenty of water, hot tea, and other liquids. This may help thin nasal mucus. It also may helpyour sinuses drain fluids. Heat may help soothe painful areas of your face. Use a towel soaked in hot water. Or, architectural engineering teacher the shower and direct the warm spray onto your face. Using a vaporizer along with a menthol rub at nightmay also help soothe symptoms. An expectorant with guaifenesin may help thin nasal mucus and help your sinuses drain fluids. You can use an qdrv-ojg-rxvzcll decongestant, unless a similar medicine was prescribed to you. Nasal sprays work the fastest. Use one that contains phenylephrine or oxymetazoline. First blow your nose gently. Then use the spray. Do not use these medicines more often than directed on the label. If you do, your symptoms may get worse. You may also take pills that contain pseudoephedrine. Don t use products that combine multiple medicines. This is because side effects may be increased. Read labels. You can also ask the pharmacist for help. (People with high blood pressure should not use decongest ants. They can raise blood pressure.) Xdih-kfq-sycogha antihistamines may help if allergies contributed to your sinusitis. Do not use nasal rinses or irrigation during an acute sinus infection, unless your healthcare provider tells you to. Rinsing may spread the infection to other areas in your sinuses. Use acetaminophen or ibuprofen to control pain, unless another pain medicine was prescribed to you.If you have chronic liver or kidney disease or ever had a stomach ulcer, talk with your healthcare provider before using these medicines. (Aspirin should never be taken by anyone under age 18 who is ill with a fever. It may cause severe liver damage.) Don't smoke. This can make symptoms worse. Follow-up care Follow up with your healthcare provider or our staff if you are not better in 1 week. When to seek medical advice Call your healthcare provider if any of these occur: Facial pain or headache that gets worse Stiff neck Unusual drowsiness or confusion Swelling of your forehead or eyelids Vision problems, such as blurred or double vision Fever of 100.4 F (38 C) or higher, or as directed by your healthcare provider Seizure Breathing problems Symptoms don't go away in 10 days Prevention Here are steps you can take to help prevent an infection: Keep good hand washing habits. Don t have close contact with people who have sore throats, colds, or other upper respiratory infections. Don t smoke, and stay away from secondhand smoke. Stay up to date with of your vaccines. [id number] [employer]. [address] [place] [address]. All rights reserved. This information is not intended as a substitute for professional medical care. Always follow yourhealthcare professional's instructions. Viral Bronchitis (Adult) You have a viral bronchitis. Bronchitis is inflammation and swelling of the lining of the lungs. This is often caused by an infection. Symptoms include a dry, hacking cough that is worse at night. The cough may bring up yellow-green mucus. You may also feel short of breath or wheeze. Other symptomsmay include tiredness, chest discomfort, and chills. Bronchitis that is caused by a virus is not treated with antibiotics. Instead, medicines may be given to help relieve symptoms. Symptoms can last up to 2 weeks, although the cough may last much longer. This illness is contagious during the first few days and is spread through the air by coughing and sneezing, or by direct contact (touching the sick person and then touching your own eyes, nose, or mouth). Most viral illnesses resolve within 10 to 14 days with rest and simple home remedies, although theymay sometimes last for several weeks. Home care If symptoms are severe, rest at home for the first 2 to 3 days. When you go back to your usual activities, don't let yourself get too tired. Do not smoke. Also avoid being exposed to secondhand smoke. You may use kzgq-ume-qtgxnrt medicine to control fever or pain, unless another pain medicine was prescribed. If you have chronic liver or kidney disease or have ever had a stomach ulcer or gastrointestinal bleeding, talk with your healthcare provider before using these medicines. Also talk to your provider if you are taking medicine to prevent blood clots. Aspirin should never be given to anyone younger than 18 years of age who is ill with a viral infection or fever. It may cause severe liver or brain damage. Your appetite may be poor, so a light diet is fine. Avoid dehydration by drinking 6 to 8 glasses offluids per day (such as water, soft drinks, sports drinks, juices, tea, or soup). Extra fluids willhelp loosen secretions in the nose and lungs. Nspg-jrf-wjtrwfk cough, cold, and sore-throat medicines will not shorten the length of the illness,but they may help to reduce symptoms. Don't use decongestants if you have high blood pressure. Follow-up care Follow up with your healthcare provider, or as advised. If you had an X-ray or ECG (electrocardiogram), a specialist will review it. You will be notified of any new findings that may affect your care. If you are age 65 or older, or if you have a chronic lung disease or condition that affects your immune system, or you smoke, ask your healthcare provider about getting a pneumococcal vaccine and a yearly flu shot (influenza vaccine). When to seek medical advice Call your healthcare provider right away if any of these occur: Fever of 100.4 F (38 C) or higher, or as directed by your healthcare provider Coughing up increased amounts of colored sputum Weakness, drowsiness, headache, facial pain, ear pain, or a stiff neck Call 911 Call 911 if any of these occur: Coughing up blood Worsening weakness, drowsiness, headache, or stiff neck Trouble breathing, wheezing, or pain with breathing [phone] [employer]. [address] [place] [address], [place] [address]. All rights reserved. This information is not intended as a substitute for professional medical care. Always follow yourhealthcare professional's instructions. Additional Information VACCINATE! IT SAVES LIVES! Members of the community who have not yet received the COVID-19 vaccine and would like to receive it can visit one of [facility] vaccine clinics. There are many vaccine clinic locations within the [facility]. For locations and available times, please visit www.[email or web address].[email or web address]/. It is important to note that some COVID mobile vaccine clinics are held outdoors and may be canceled in rainy or stormy conditions. To learn more about pediatric vaccinations (ages 5-11), we invite you to visit the [facility] webpage. [email or web address] learn more about the COVID-19 vaccine, we invite you to visit the CDC website for a list of frequently asked questions. https://www.cdc.gov/coronavirus/2019-ncov/vaccines/faq.html [facility] Patient Portal Access Instructions: Stay connected with your healthcare team and access your personal medical information anytime with the [facility] Patient Portal. If you would like a full copy of your medical records please contact the [facility] Medical Records Department Tuesday through Tuesday between 8a.m. and 4:30p.m. Please follow the directions below to access the portal: 1.Access the email account you provided upon registration to the special care hospital.2.Look for an invitation email from [facility].3.Open the email and access the invitation link: Accept Invitation to [facility].Fill in the required pineda to create your account. Sign into [email or web address] with your username and password that you created in the above steps to stay up to date. You can then view a summary of results, a summary of your visits, and the ability to download your summaries to your computer or send the information securely to a physician. Remember that your healthcare information is confidential, so carefully consider who you will allow to register on the [facility] Patient Portal for access to your information. You can also access the [facility] Patient Portal on the [employer]. Simply click on Health Records under [employer] and then click on the [facility] logo. HOW TO SAFELY DISPOSE OF PRESCRIPTION MEDICATIONS Please use one of the following methods to safely dispose of your unused medications. 1.Use a drug disposal kit: the drug disposal pouch allows you to safely discard your old and unuseddrugs. Ask your nurse to give you one when you are discharged.2.Visit a local take-back location: Many local pharmacies and police departments have programs that collect old and unwanted prescriptiondrugs. Call your local pharmacy or go to [email or web address] to find one close to you.3.Make use of household items: Use cat litter or old coffee grounds to dispose medications if other options arenot available. Mix your drugs with these household products, seal them in an airtight container andthrow it into the garbage. Call [facility]: [phone] to be sure your drugs can be disposed of in this way. Some medicines may require a different approach.4.Never flush your medications down the toilet. IF YOU HAVE BEEN PRESCRIBED AN OPIOIDS FOR PAIN If you have been prescribed an opioid (such as hydrocodone, oxycodone or morphine), it is critical to understand the possible side effects and risks of opioid pain medications. Even when taken as directed, opioids can have several side effects including: Tolerance, meaning you might need to take more of a medication for the same pain relief. Nausea, vomiting and/or constipation. Sleepiness, dizziness, dry mouth, confusion, depression or itching. Physical dependence, meaning you have withdrawal symptoms when a medication is stopped ? this can develop within a few days. KNOW YOUR RESPONSIBILITIES It is important to know exactly how much and how often to take the opioid pain medications you are prescribed. Never take opioids in higher amounts or more often than prescribed. Do not combine opioids with alcohol or other drugs that cause drowsiness, such as benzodiazepines, also known as benzos,including diazepam and alprazolam, muscle relaxants or sleep aids. Never sell or share prescriptionopioids. This is illegal. Store opioids in a secure place and out of reach of others (including children, family, friends and visitors). The last page(s) of this document has been signed and retained as a CHART COPY Signatures Patient Education Materials Sinusitis (Antibiotic Treatment) Bronchitis, No Antibiotic (Adult) Medication Leaflets My discharge plan and instructions have been reviewed and explained to me and IMIKA LOREN D understand my current condition and have read and understand these discharge instructions. I have received a written copy of the plan/instructions. If I have questions, I am aware that I should contact my doctor. Patient/Heel Scourer Signature: Date/Time: Relationship to Patient: Witness Name/Signature: Date/Time: [facility]06-20-2025 Note* Exam Date Time Procedure Performing Provider Status 09/21/24 6:[address] Head or Brain w/o Contrast ANASTACIO RAMOS MD; Auth (Verified) [id number] ORIGINAL EXAMINATION: CT OF THE HEAD WITHOUT CONTRAST 09/21/2024 6:11 pm TECHNIQUE: CT of the head was performed without the administration of intravenous contrast. Automated exposure control, iterative reconstruction, and/or weight based adjustment of the mA/kV was utilized to reduce the radiation dose to as low as reasonably achievable. COMPARISON: MRI of the brain May 30, 2024 HISTORY: ORDERING SYSTEM PROVIDED HISTORY: Reason for Exam: fall FINDINGS: BRAIN/VENTRICLES: There is no acute intracranial hemorrhage, mass effect or midline shift. No abnormal extra-axial fluid collection. Encephalomalacia centered in the right parietal and temporal lobes. There is no evidence of hydrocephalus. ORBITS: The visualized portion of the orbits demonstrate no acute abnormality. SINUSES: The visualized paranasal sinuses and mastoid air cells demonstrate no acute abnormality. SOFT TISSUES/SKULL: No acute abnormality of the visualized skull. IMPRESSION: No acute intracranial hemorrhage. Interpreted by: Anastacio Ramos Preliminary Report By: Anastacio Ramos Electronically signed By Anastacio Ramos Dictated Date: 09/21/2024 6:20:55 PM Prelim Date: 09/21/2024 6:23:23 PM Sign Date: 09/21/2024 6:23:23 PM Ordering Provider: [facility]06-20-2025 Note* Exam Date Time Procedure Performing Provider Status 09/21/24 6:02 PM XR Chest 1 View KIM THOMAS DO; th (Verified) [id number] ORIGINAL EXAMINATION: ONE XRAY VIEW OF THE CHEST 09/21/2024 6:04 pm COMPARISON: CT thorax screening without contrast 02/03/2024. HISTORY: ORDERING SYSTEM PROVIDED HISTORY: Reason for Exam: cough FINDINGS: The lungs are hyperinflated. The lungs are without acute focal process. There is no effusion or pneumothorax. The cardiomediastinal silhouette is without acute process. The osseous structures are without acute process. Changes status post median sternotomy. IMPRESSION: No acute process. Interpreted by: Kim Thomas Preliminary Report By: Kim Thomas Electronically signed By Kim Thomas Dictated Date: 09/21/2024 6:07:47 PM Prelim Date: 09/21/2024 6:08:55 PM Sign Date: 09/21/2024 6:08:55 PM Ordering Provider: [facility]06-20-2025 Note* Exam Date Time Procedure Performing Provider Status 09/21/24 5:59 PM XR Spine Lumbar Ap/Lat ATIF RAMOS MD; Auth (Verified) [id number] ORIGINAL EXAMINATION: 2 XRAY VIEWS OF THE LUMBAR SPINE 09/21/2024 6:02 pm COMPARISON: CT abdomen pelvis August 04, 2024 HISTORY: ORDERING SYSTEM PROVIDED HISTORY: Reason for Exam: fall FINDINGS: Vertebral body heights and alignment are unchanged. Degenerative change of the spine. IMPRESSION: No acute osseous abnormality by radiograph. Interpreted by: Anastacio Ramos Preliminary Report By: Anastacio Ramos Electronically signed By Anastacio Ramos Dictated Date: 09/21/2024 6:07:38 PM Prelim Date: 09/21/2024 6:08:32 PM Sign Date: 09/21/2024 6:08:32 PM Ordering Provider: GARY KRUSE [facility]06-20-2025 Note* Exam Date Time Procedure Performing Provider Status 09/21/24 4:27 PM EKG [ED AOH] - CV GARY KRUSE DO; [facility] (Verified) ECG Final Report Sinus rhythm Probable left atrial enlargement LAD, consider left anterior fascicular block Probable anteroseptal infarct, old Electronic Signature: GARY KRUSE DO 09/21/2024 17:41:35 [facility]05-08-2025 Note. MICRO - Microbiology PROCEDURE: Urine Culture [O1 *1] SOURCE: Urine BODY SITE: COLLECTED DATE/TIME: 08/04/2024 15:21 EDT RECEIVED DATE/TIME: 08/05/2024 14:10 EDT START DATE/TIME: 08/05/2024 14:11 EDT FREE TEXT SOURCE: FINAL REPORTS Final Report [] Verified Date/Time/Personnel: 08/09/2024 07:39 EDT >100,000 cfu/ml Escherichia coli Confirmatory testing for ESBL production negative. The finding that isolates which initially screen positive but then have negative confirmatory testing may be due to the presence of other beta-lactamases such as Amp-C. PRELIMINARY REPORTS Preliminary Report [] Verified Date/Time/Personnel: 08/07/2024 07:34 EDT >100,000 cfu/ml Escherichia coli Suspected ESBl-fish liver sorter. Confirmation of suspected ESBL production in progress. Final results to follow. Preliminary Report [] Verified Date/Time/Personnel: 08/06/2024 10:05 EDT >100,000 cfu/ml Escherichia coli TAMICA to follow Preliminary Report [] Verified Date/Time/Personnel: 08/05/2024 14:59 EDT Specimen received in lab. SUSCEPTIBILITY RESULTS Escherichia coli Antibiotic TAMICA Dilut TAMICA Inter Ampicillin >16 Resistant Ampicillin/ 16/8 Intermediate Sulbactam Aztreonam <=4 Susceptible Cefazolin >16 Resistant Ceftazidime/ <=4 Susceptible Avibactam Ceftolozane/ <=2 Susceptible Tazobactam Ceftriaxone <=1 Susceptible Cefuroxime 16 Intermediate Ciprofloxacin <=0.25 Susceptible Ertapenem <=0.5 Susceptible Gentamicin <=2 Susceptible ID Panel Not Not Applicable Applicable Imipenem <=1 Susceptible Levofloxacin <=0.5 Susceptible Meropenem <=1 Susceptible Minocycline <=4 Susceptible Nitrofurantoin <=32 Susceptible Piperacillin/ <=8 Susceptible Tazobactam Trimethoprim/ <=0.5/9.5 Susceptible Sulfa MICRO - Microbiology Order Comments O1: Urine Culture Added by Discern Performing Locations *1: This test was performed at: [address], [facility] , [facility]05-03-2025 Hospital Discharge instructions Patient Education 08/04/2024 15:46:17 Urinary Tract Infections in Men Urinary Tract Infections in Men Urinary tract infections (UTIs) are most often caused by bacteria that invade the urinary tract. The bacteria may come from outside the body. Or they may travel from the skin outside of the rectum into the urethra. Pain in or around the urinary tract is a common symptom for most UTIs. But the only way to know for sure if you have a UTI is to have a urinalysis and urine culture. Types of UTIs Cystitis. This is a bladder infection. It is often linked to a blockage from an enlarged prostate. You may have an urgent or frequent need to urinate, and bloody urine. Treatment includes antibioticsand medicine to relax or shrink the prostate. Sometimes you will need surgery. Urethritis. This is an infection of the urethra. You may have a discharge from the urethra or burning when you urinate. You may also have pain in the urethra or penis. It is treated with antibiotics. Prostatitis. This is an inflammation or infection of the prostate. You may have an urgent or frequent need to urinate, fever, or burning when you urinate. Or you may have a tender prostate, or a vague feeling of pressure. Prostatitis is treated with a range of medicines, depending on the cause. Pyelonephritis. This is a kidney infection. If not treated, it can be serious and damage your kidneys. In severe cases you may need to stay in the hospital. You may have a fever and lower back pain. Medicines to treat a UTI Most UTIs are treated with antibiotics. These kill the bacteria. The length of time you need to take them depends on the type of infection. Take antibiotics exactly as directed until all of the medicine is gone. If you don't, the infection may not go away and may become harder to treat. For certaintypes of UTIs, you may be given other medicine to help treat your symptoms. Lifestyle changes to treat and prevent UTIs The lifestyle changes below will help get rid of your current infection. They may also help preventfuture UTIs. Drink plenty of fluids such as water, juice, or other caffeine-free drinks. This helps flush bacteria out of your system. Empty your bladder when you feel the urge to urinate and before going to sleep. Urine that stays inyour bladder promotes infection. Use condoms during sex. These help prevent UTIs caused by sexually transmitted bacteria. Keep follow-up appointments with your healthcare provider. He or she can may do tests to make sure the infection has cleared. If needed, more treatment can be started. Other treatments to prevent UTIs Most UTIs respond to medicine. But sometimes you will need a procedure or surgery. This can treat an enlarged prostate, or remove a kidney stone or other blockage. Surgery may also treat problems caused by scarring or long-term infections. [id number] [employer]. [address] [place] [address]. All rights reserved. This information is not intended as a substitute for professional medical care. Always follow yourhealthcare professional's instructions. Follow Up Care 08/04/2024 13:04:23 With:PARISH GRAFF DO Address: [address] [place] [address] [place] [phone] When:2-[address] [facility] 05-03-2025 Emergency department Discharge summary Discharge Instructions Thank you for allowing [facility] to assist you with your healthcare needs. The following is importantdischarge information regarding your hospital visit. Diagnosis from Today's Visit UTI (urinary tract infection), uncomplicated What to Do Next Instructions from Your Care Team No qualifying data available. Post Acute Orders No qualifying data available. You Need to Schedule the Following Appointments Follow Up with PARISH GRAFF DO When:Within 2-4 days Where:[address] [facility] [place] [phone] Allergies Bee Stings Unknown, Swelling tuberculin purified protein derivative Unknown Medications Please ask your primary doctor or pharmacist before taking any other medication not listed, including over the counter drugs, herbal medications, vitamins and or supplements as they may interact withyour home medications. What How Much When Why Instructions Last Dose New cephalexin (cephalexin 500 mg oral capsule) 1 cap by mouth Three (3) times a day Duration: 7 Days Printed Prescription Unchanged acetaminophen (acetaminophen 500 mg oral capsule) 2 cap by mouth Every 4 hours as needed for for fever Unchanged ascorbic acid (Vitamin C 500 mg oral tablet) 1 tab(s) by mouth Once a day Unchanged aspirin (aspirin 81 mg oral delayed release tablet) 1 tab(s) by mouth Once a day Duration: 90 Days Unchanged atorvastatin (atorvastatin 80 mg oral tablet) 1 tab(s) by mouth Once a day Unchanged busPIRone (busPIRone 10 mg oral tablet) 1 tab(s) by mouth Three (3) times a day as needed for stress Unchanged clopidogrel (clopidogrel 75 mg oral tablet) 1 tab(s) by mouth Once a day Duration: 90 Days Unchanged DME (Alcohol Swabs) See instructions Hypoglycemia dispense 200 EtOH wipes; check blood sugar twice daily (fasting and before bed), 3 refills, dx E16.2 Unchanged DME (Blood Glucose Test Machine) See instructions Hypoglycemia dx E16.2 check blood sugar twice daily Unchanged DME (Blood Glucose Test Strips) See instructions Hypoglycemia dispense 200 glucose test strips; check blood sugar twice daily (fasting and before bed), 3 refills, dx E16.2 Unchanged DME (DME MISCellaneous) See instructions dx I10 dispense one automated upper arm spygmomanometer with supplies and digital readout. 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 Unchanged EPINEPHrine (EpiPen 2-Sebastian 0.3 mg injectable kit) 0.3 Milligram Subcutaneous As Directed as needed for Allergic reaction Duration: 2 Doses Unchanged escitalopram (escitalopram 20 mg oral tablet) 1 tab(s) by mouth Once a day Unchanged ferrous sulfate (ferrous sulfate 325 mg (65 mg elemental iron) oral delayed release tablet) 1 tab(s) by mouth Once a day Unchanged folic acid (folic acid 1 mg oral tablet) 1 tab(s) by mouth Once a day Duration: 90 Days Unchanged lamoTRIgine (lamoTRIgine 100 mg oral tablet) 1 tab(s) by mouth Two (2) times a day Duration: 90 Days Unchanged levETIRAcetam (levETIRAcetam 500 mg oral tablet) 1 tab(s) by mouth Once a day Duration: 90 Days Unchanged magnesium oxide (magnesium oxide 400 mg oral tablet) 1 tab(s) by mouth Every day Duration: 90 Days Unchanged metoprolol (metoprolol succinate 25 mg oral TABLET extended release) 0.5 tab(s) by mouth Once a day Duration: 90 Days Do not crush or chew (controlled release) Unchanged mirtazapine (mirtazapine 45 mg oral tablet) 1 tab(s) by mouth Daily at bedtime Duration: 90 Days Unchanged multivitamin (B 100 Complex oral tablet) 1 tab(s) by mouth Every day Duration: 90 Days Unchanged multivitamin (Daily Tin oral tablet) 1 tab(s) by mouth Every day Duration: 90 Days Unchanged multivitamin with minerals (Celebrate Multivitamin oral tablet, chewable) 1 tab(s) Chewed Once a day Duration: 90 Days Unchanged nitroGLYcerin (nitroglycerin 0.3 mg sublingual tablet) 1 tab(s) under the tongue Every 5 minutes as needed for for chest pain Duration: 30 Days Unchanged pantoprazole (pantoprazole 40 mg oral enteric coated tablet) 1 tab(s) by mouth Two (2) times a day Duration: 90 Days Unchanged senna (senna (sennosides) 8.6 mg oral tablet) 2 tab(s) by mouth Daily at bedtime as needed for for constipation Duration: 90 Days Unchanged thiamine (thiamine 100 mg oral tablet) 1 tab(s) by mouth Every day Duration: 90 Days Please take this list to your next doctor s visit. Bring all medications you take, including over the counter medications, herbals and other supplements with you to your doctor s visit. Patients and families are reminded to discard old lists and to update any records with all medication providers or retail pharmacies. Education Materials Urinary Tract Infections in Men Urinary tract infections (UTIs) are most often caused by bacteria that invade the urinary tract. The bacteria may come from outside the body. Or they may travel from the skin outside of the rectum into the urethra. Pain in or around the urinary tract is a common symptom for most UTIs. But the only way to know for sure if you have a UTI is to have a urinalysis and urine culture. Types of UTIs Cystitis. This is a bladder infection. It is often linked to a blockage from an enlarged prostate. You may have an urgent or frequent need to urinate, and bloody urine. Treatment includes antibioticsand medicine to relax or shrink the prostate. Sometimes you will need surgery. Urethritis. This is an infection of the urethra. You may have a discharge from the urethra or burning when you urinate. You may also have pain in the urethra or penis. It is treated with antibiotics. Prostatitis. This is an inflammation or infection of the prostate. You may have an urgent or frequent need to urinate, fever, or burning when you urinate. Or you may have a tender prostate, or a vague feeling of pressure. Prostatitis is treated with a range of medicines, depending on the cause. Pyelonephritis. This is a kidney infection. If not treated, it can be serious and damage your kidneys. In severe cases you may need to stay in the hospital. You may have a fever and lower back pain. Medicines to treat a UTI Most UTIs are treated with antibiotics. These kill the bacteria. The length of time you need to take them depends on the type of infection. Take antibiotics exactly as directed until all of the medicine is gone. If you don't, the infection may not go away and may become harder to treat. For certaintypes of UTIs, you may be given other medicine to help treat your symptoms. Lifestyle changes to treat and prevent UTIs The lifestyle changes below will help get rid of your current infection. They may also help preventfuture UTIs. Drink plenty of fluids such as water, juice, or other caffeine-free drinks. This helps flush bacteria out of your system. Empty your bladder when you feel the urge to urinate and before going to sleep. Urine that stays inyour bladder promotes infection. Use condoms during sex. These help prevent UTIs caused by sexually transmitted bacteria. Keep follow-up appointments with your healthcare provider. He or she can may do tests to make sure the infection has cleared. If needed, more treatment can be started. Other treatments to prevent UTIs Most UTIs respond to medicine. But sometimes you will need a procedure or surgery. This can treat an enlarged prostate, or remove a kidney stone or other blockage. Surgery may also treat problems caused by scarring or long-term infections. [phone] [employer]. [address] [place] [address], [place] [id number]. All rights reserved. This information is not intended as a substitute for professional medical care. Always follow yourhealthcare professional's instructions. Additional Information VACCINATE! IT SAVES LIVES! Members of the community who have not yet received the COVID-19 vaccine and would like to receive it can visit one of [facility] vaccine clinics. There are many vaccine clinic locations within the [facility]. For locations and available times, please visit www.[email or web address].[email or web address]/. It is important to note that some COVID mobile vaccine clinics are held outdoors and may be canceled in rainy or stormy conditions. To learn more about pediatric vaccinations (ages 5-11), we invite you to visit the [facility] webpage. [email or web address]/[email or web address] learn more about the COVID-19 vaccine, we invite you to visit the CDC website for a list of frequently asked questions. https://www.cdc.gov/coronavirus/2019-ncov/vaccines/faq.html [facility] Patient [facility] Access Instructions: Stay connected with your healthcare team and access your personal medical information anytime with the [facility] Patient Portal. If you would like a full copy of your medical records please contact the [facility] Medical Records Department Tuesday through Tuesday between 8a.m. and 4:30p.m. Please follow the directions below to access the portal: 1.Access the email account you provided upon registration to the special care hospital.2.Look for an invitation email from [facility].3.Open the email and access the invitation link: Accept Invitation to [facility].Fill in the required pineda to create your account. Sign into [email or web address] with your username and password that you created in the above steps to stay up to date. You can then view a summary of results, a summary of your visits, and the ability to download your summaries to your computer or send the information securely to a physician. Remember that your healthcare information is confidential, so carefully consider who you will allow to register on the [facility] [employer] Patient Portal for access to your information. You can also access the [facility] [employer] Patient Portal on the [employer]. Simply click on Health Records under [employer] and then click on the [facility] logo. HOW TO SAFELY DISPOSE OF PRESCRIPTION MEDICATIONS Please use one of the following methods to safely dispose of your unused medications. 1.Use a drug disposal kit: the drug disposal pouch allows you to safely discard your old and unuseddrugs. Ask your nurse to give you one when you are discharged.2.Visit a local take-back location: Many local pharmacies and police departments have programs that collect old and unwanted prescriptiondrugs. Call your local pharmacy or go to http://[employer].[address]/0C2Fe4j to find one close to you.3.Make use of household items: Use cat litter or old coffee grounds to dispose medications if other options arenot available. Mix your drugs with these household products, seal them in an airtight container andthrow it into the garbage. Call [facility]: [phone] to be sure your drugs can be disposed of in this way. Some medicines may require a different approach.4.Never flush your medications down the toilet. IF YOU HAVE BEEN PRESCRIBED AN OPIOIDS FOR PAIN If you have been prescribed an opioid (such as hydrocodone, oxycodone or morphine), it is critical to understand the possible side effects and risks of opioid pain medications. Even when taken as directed, opioids can have several side effects including: Tolerance, meaning you might need to take more of a medication for the same pain relief. Nausea, vomiting and/or constipation. Sleepiness, dizziness, dry mouth, confusion, depression or itching. Physical dependence, meaning you have withdrawal symptoms when a medication is stopped ? this can develop within a few days. KNOW YOUR RESPONSIBILITIES It is important to know exactly how much and how often to take the opioid pain medications you are prescribed. Never take opioids in higher amounts or more often than prescribed. Do not combine opioids with alcohol or other drugs that cause drowsiness, such as benzodiazepines, also known as benzos,including diazepam and alprazolam, muscle relaxants or sleep aids. Never sell or share prescriptionopioids. This is illegal. Store opioids in a secure place and out of reach of others (including children, family, friends and visitors). The last page(s) of this document has been signed and retained as a CHART COPY Signatures Patient Education Materials Urinary Tract Infections in Men Medication Leaflets My discharge plan and instructions have been reviewed and explained to me and IMIKA LOREN D understand my current condition and have read and understand these discharge instructions. I have received a written copy of the plan/instructions. If I have questions, I am aware that I should contact my doctor. Patient/Heel Scourer Signature: Date/Time: Relationship to Patient: Witness Name/Signature: Date/Time: [facility]05-03-2025 Note* Exam Date Time Procedure Performing Provider Status 08/04/24 2:[address] Abd/Pelvis w/ IV Contrast Only MILDRED PAPPAS MD; Auth (Verified) [id number] ORIGINAL EXAMINATION: CT OF THE ABDOMEN AND PELVIS WITH CONTRAST 08/04/2024 2:35 pm TECHNIQUE: CT of the abdomen and pelvis was performed with the administration of intravenous contrast. Multiplanar reformatted images are provided for review. Automated exposure control, iterative reconstruction, and/or weight based adjustment of the mA/kV was utilized to reduce the radiation dose to as low as reasonably achievable. COMPARISON: CT 02/03/2024. HISTORY: ORDERING SYSTEM PROVIDED HISTORY: Reason for Exam: pain FINDINGS: Mild posterior dependent atelectasis in lung bases. Normal heart size. Multiple calcified splenic granulomas. Normal liver, adrenal glands, gallbladder and common duct, kidneys and ureters. No ventral abdominal or inguinal hernia. Slightly distended colon and small bowel, fluid-filled. No bowel wall thickening. No free fluid or pneumoperitoneum. Unchanged left para-aortic lymph node, measuring 1.3 cm in short axis. Left-sided inguinal lymph nodes have improved in size, now measuring just under 1 cm. Thickened trabeculated pattern of the bladder, consistent with chronic outlet obstruction versus cystitis, as before. Slightly enlarged prostate. No aggressive osseous lesions. IMPRESSION: No evidence of bowel obstruction. Some bowel loops are fluid-filled, which may be seen in diarrheal state. No abdominal hernia demonstrated. Improved left inguinal lymph node size since 02/03/2024. Unchanged left para-aortic prominent lymph node. Interpreted by: Mildred Andrade Preliminary Report By: Mildred Andrade Electronically signed By Mildred Andrade Dictated Date: 08/04/2024 2:50:16 PM Prelim Date: 08/04/2024 3:08:59 PM Sign Date: 08/04/2024 3:08:59 PM Ordering Provider: [facility]04-08-2025 Evaluation note* Diagnosis Onset Date Resolution Status Admit Date Small lymphocytic lymphoma chronic July 10, 2024 7:24am Solitary lung nodule acute Apri l 2024 2:32pm COPD (chronic obstructive pulmonary disease) chronic July 17, 2 025 2:32pm Nicotine dependence, cigaret renay, uncomplicated chronic July 17, 2024 2:32pm Coronary artery disease with angina pectoris acute October 12, 2024 2:39pm Postoperative atrial fibrillation ac augustine October 12, 2024 2:39pm Atherosclerotic heart diseas e of [place] coronary artery without angina pectoris chronic October 12, 2024 2:39pm Atrial septal aneurysm chronic Ju 2024 2:39pm Hyperlipidemia chronic October 12, 2024 2:39pm Nicotine dependence chronic October 12, 2024 2:39pm [facility] [employer] Work Phone: [phone] 305-192904-08-2025 Evaluation note* Diagnosis Onset Date Resolution Status Admit Date Small lymphocytic lymphoma chronic July 10, 2024 7:24am Solitary lung nodule acute Apri l 2024 2:32pm COPD (chronic obstructive pulmonary disease) chronic July 17, 2 025 2:32pm Nicotine dependence, cigaret renay, uncomplicated chronic July 17, 2024 2:32pm Atherosclerotic heart diseas e of [place] coronary artery without angina pectoris chronic October 12, 2024 2:39pm Hyperlipidemia chronic October 12, 2024 2:39pm Nicotine dependence chronic October 12, 2024 2:39pm Postoperative atrial fibrillation resolved October 12, 2024 2:39pm Small lymphocytic lymphoma chronic October 18, 2024 12:10pm [facility] [employer] Work Phone: [phone]) 162-778202-26-2025 Note* Exam Date Time Procedure Performing Provider Status 05/30/24 1:19 PM MRI Brain w/o Contrast RICHMOND ALVARADO MD; Auth (Verified) [id number] ORIGINAL EXAMINATION: MRI OF THE BRAIN WITHOUT CONTRAST 05/30/2024 1:19 pm TECHNIQUE: Multiplanar multisequence MRI of the brain was performed without the administration of intravenous contrast. COMPARISON: 09/14/2022 the HISTORY: ORDERING SYSTEM PROVIDED HISTORY: Reason for Exam: memory change FINDINGS: INTRACRANIAL STRUCTURES/VENTRICLES: There is no acute infarct. Remote posterior right MCA distribution infarct with associated ex vacuo dilatation of the right occipital horn. Areas of susceptibility artifact within the area of remote infarct suggestive of remote hemorrhage. No mass effect or midline shift. No evidence of an acute intracranial hemorrhage. The ventricles are mildly enlarged with commensurate enlargement of the sulci most consistent with mild age-related volume loss. The sellar/suprasellar regions appear unremarkable. The normal signal voids within the major intracranial vessels appear maintained. ORBITS: The visualized portion of the orbits demonstrate no acute abnormality. Bilateral lens replacements. SINUSES: The visualized paranasal sinuses and mastoid air cells demonstrate no acute abnormality. BONES/SOFT TISSUES: The bone marrow signal intensity appears normal. The soft tissues demonstrate no acute abnormality. IMPRESSION: 1. No acute intracranial abnormality or significant change from the prior. 2. Remote right MCA distribution infarct. Interpreted by: Richmond Alvarado MD Preliminary Report By: Richmond Alvarado MD Electronically signed By Richmond Alvarado MD Dictated Date: 05/30/2024 3:50:02 PM Prelim Date: 05/30/2024 3:56:02 PM Sign Date: 05/30/2024 3:56:02 PM Ordering Provider: [facility]01-13-2025 Telephone encounter Note* Telephone Encounter - Rosalva Yung MA - 04/16/2024 4:13 PM EST The following refill is being requested Medication: Primidone Dosage: 50mg Frequency:1 am, 1.5 afternoon, 1 evening Day supply requested: Pharmacy: [facility] Next scheduled appt: Is pt out of medication? YES [id number] Miscellaneous Notes* Telephone Encounter - Rosalva Yung MA - 04/16/2024 4:13 PM EST The following refill is being requested Medication: Primidone Dosage: 50mg Frequency:1 am, 1.5 afternoon, 1 evening Day supply requested: Pharmacy: [facility] Next scheduled appt: Is pt out of medication? YES Updated pharm in [facility]. documented [id number] Hospital Discharge instructions Patient Education 02/27/2024 11:45:02 Open Lymph Node Biopsy, Care After Open Lymph Node Biopsy, Care After This sheet gives you information about how to care for yourself after your procedure. Your health care provider may also give you more specific instructions. If you have problems or questions, contact your health care provider. What can I expect after the procedure? After the procedure, it is common to have: Bruising. Soreness. Mild swelling. Follow these instructions at home: Medicines Take dvzu-dxs-ccrsoff and prescription medicines only as told by your health care provider. If you were prescribed an antibiotic medicine, take it as told by your health care provider. Do notstop taking the antibiotic even if you start to feel better. Incision care Follow instructions from your health care provider about how to take care of your incision. Make sure you: ?Wash your hands with soap and water before and after you change your bandage (dressing). If soap and water are not available, use hand customer leader. ?Change your dressing as told by your health care provider. ?Leave stitches (sutures), skin glue, or adhesive strips in place. These skin closures may need to stay in place for 2 weeks or longer. If adhesive strip edges start to loosen and curl up, you may trim the loose edges. Do not remove adhesive strips completely unless your health care provider tells you to do that. Check your incision area every day for signs of infection. Check for: ?More redness, swelling, or pain. ?Fluid or blood. ?Warmth. ?Pus or a bad smell. Driving Do not drive for 24 hours if you were given a sedative during your procedure. Do not drive or use heavy machinery while taking prescription pain medicine. General instructions Return to your normal activities as told by your health care provider. Ask your health care provider what activities are safe for you. Do not take baths, swim, or use a hot tub until your health care provider approves. Ask your healthcare provider if you may take showers. You may only be allowed to take sponge baths. Keep all follow-up visits as told by your health care provider. This is important. Contact a health care provider if: You have more redness, swelling, or pain around your incision. You have fluid or blood coming from your incision. Your incision feels warm to the touch. You have pus or a bad smell coming from your incision. You have a fever. You have pain or numbness that gets worse or lasts longer than a few days. Summary After a lymph node biopsy, it is common to have bruising, soreness, and mild swelling. Follow your health care provider's instructions about taking care of yourself at home. You will be told how to take medicines, take care of your incision, and check for infection. Return to your normal activities as told by your health care provider. Ask your health care provider what activities are safe for you. Contact a health care provider if you have more redness, swelling, or pain around your incision, you have a fever, or you have worsening pain or numbness. This information is not intended to replace advice given to you by your health care provider. Make sure you discuss any questions you have with your health care provider. Document Released: 04/16/2016 Document Revised: 10/26/2018 Document Reviewed: 10/26/2018 [employer] Patient Education 2020 [employer]. 02/27/2024 11:44:29 Monitored Anesthesia Care, Care After Monitored Anesthesia Care, Care After These instructions provide you with information about caring for yourself after your procedure. Your health care provider may also give you more specific instructions. Your treatment has been plannedaccording to current medical practices, but problems sometimes occur. Call your health care provider if you have any problems or questions after your procedure. What can I expect after the procedure? After your procedure, you may: Feel sleepy for several hours. Feel clumsy and have poor balance for several hours. Feel forgetful about what happened after the procedure. Have poor judgment for several hours. Feel nauseous or vomit. Have a sore throat if you had a breathing tube during the procedure. Follow these instructions at home: For at least 24 hours after the procedure: Have a responsible adult stay with you. It is important to have someone help care for you until youare awake and alert. Rest as needed. Do not: ?Participate in activities in which you could fall or become injured. ?Drive. ?Use heavy machinery. ?Drink alcohol. ?Take sleeping pills or medicines that cause drowsiness. ?Make important decisions or sign legal documents. ?Take care of children on your own. Eating and drinking Follow the diet that is recommended by your health care provider. If you vomit, drink water, juice, or soup when you can drink without vomiting. Make sure you have little or no nausea before eating solid foods. General instructions Take lltm-qbm-dahmqjs and prescription medicines only as told by your health care provider. If you have sleep apnea, surgery and certain medicines can increase your risk for breathing problems. Follow instructions from your health care provider about wearing your sleep device: ?Anytime you are sleeping, including during daytime naps. ?While taking prescription pain medicines, sleeping medicines, or medicines that make you drowsy. If you smoke, do not smoke without supervision. Keep all follow-up visits as told by your health care provider. This is important. Contact a health care provider if: You keep feeling nauseous or you keep vomiting. You feel light-headed. You develop a rash. You have a fever. Get help right away if: You have trouble breathing. Summary For several hours after your procedure, you may feel sleepy and have poor judgment. Have a responsible adult stay with you for at least 24 hours or until you are awake and alert. This information is not intended to replace advice given to you by your health care provider. Make sure you discuss any questions you have with your health care provider. Document Released: 07/11/2016 Document Revised: 06/19/2018 Document Reviewed: 07/11/2016 [employer] Patient Education 2020 [employer]. Follow Up Care 02/16/2024 15:30:20 With:JOHN MATUTE MD, Surgery Address: [address], [place] [phone] When: Unknown [facility] 11-25-2024 Note Discharge Instructions Thank you for allowing [facility] to assist you with your healthcare needs. The following is importantdischarge information regarding your hospital visit. Your Care Team PARISH GRAFF DO, Dr. Your Diagnosis Acute post-operative pain What to do next Scheduled Follow-Up Appointments Appointment Type When With Where Contact Information StatusIR Lymph Node Biopsy 02/29/2024 12:00 [facility] IR Confirmed GS OV Post Op 03/08/2024 01:20 PM JOHN BONILLA MD [facility] Confirmed PC OV 03/19/2024 01:00 PM PARISH FINLEY DO [facility] Confirmed Follow Up Appointments Follow Up with JOHN MATUTE MD, Surgery Where:[address] [place] [phone] The Following Activity and Diet Have Been Ordered for You Discharge Activity - Ordered -- Sexual [place] Restricted No bending, twisting, crawling or squatt, No shower or tub bath for 2 days; no driving for 5 days, no lifting >15 lbs, 02/27/24 11:29:00 EST Discharge Diet - Ordered -- Follow the post-operative/post-procedure diet instructions provided by your physician's office.,02/27/24 11:29:00 EST The Following Equipment Has Been Ordered for You Discharge Home Equipment Discharge Wound Care - Ordered -- Dressing Type: Dry sterile drsg, Remove dressing in two (2) days. Leave steristrips on until they fall off, 02/27/24 11:29:00 EST Allergies Bee Stings Unknown, Swelling tuberculin purified protein derivative Unknown Medications Please ask your primary doctor or pharmacist before taking any other medication not listed, including over the counter drugs, herbal medications, vitamins and or supplements as they may interact withyour home medications. What How Much When Why Instructions Last Dose New acetaminophen-hydrocodone ([place] 325- 5 mg oral tablet) 1 tab(s) by mouth Every 4 hours as needed for Pain, scale 1-6 Acute post-operative pain Duration: 3 Days Pickup at [facility] Unchanged acetaminophen (acetaminophen 500 mg oral capsule) 2 cap by mouth Every 4 hours as needed for for fever Unchanged ascorbic acid (Vitamin C 500 mg oral tablet) 1 tab(s) by mouth Once a day Unchanged aspirin (aspirin 81 mg oral delayed release tablet) 1 tab(s) by mouth Once a day Duration: 90 Days Unchanged atorvastatin (atorvastatin 80 mg oral tablet) 1 tab(s) by mouth Once a day Unchanged busPIRone (busPIRone 10 mg oral tablet) 1 tab(s) by mouth Three (3) times a day as needed for stress Unchanged clopidogrel (clopidogrel 75 mg oral tablet) 1 tab(s) by mouth Once a day Duration: 90 Days Unchanged DME (Alcohol Swabs) See instructions Hypoglycemia dispense 200 EtOH wipes; check blood sugar twice daily (fasting and before bed), 3 refills, dx E16.2 Unchanged DME (Blood Glucose Test Machine) See instructions Hypoglycemia dx E16.2 check blood sugar twice daily Unchanged DME (Blood Glucose Test Strips) See instructions Hypoglycemia dispense 200 glucose test strips; check blood sugar twice daily (fasting and before bed), 3 refills, dx E16.2 Unchanged DME (DME MISCellaneous) See instructions dx I10 dispense one automated upper arm spygmomanometer with supplies and digital readout. 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 Unchanged EPINEPHrine (EpiPen 2-Sebastian 0.3 mg injectable kit) 0.3 Milligram Subcutaneous As Directed as needed for Allergic reaction Duration: 2 Doses Unchanged escitalopram (escitalopram 20 mg oral tablet) 1 tab(s) by mouth Once a day Unchanged ferrous sulfate (ferrous sulfate 325 mg (65 mg elemental iron) oral delayed release tablet) 1 tab(s) by mouth Once a day Unchanged folic acid (folic acid 1 mg oral tablet) 1 tab(s) by mouth Once a day Duration: 90 Days Unchanged lamoTRIgine (lamoTRIgine 100 mg oral tablet) 1 tab(s) by mouth Two (2) times a day Duration: 90 Days Unchanged levETIRAcetam (levETIRAcetam 500 mg oral tablet) 1 tab(s) by mouth Once a day Duration: 90 Days Unchanged metoprolol (metoprolol succinate 25 mg oral TABLET extended release) 0.5 tab(s) by mouth Once a day Duration: 90 Days Do not crush or chew (controlled release) Unchanged mirtazapine (mirtazapine 30 mg oral tablet) 1 tab(s) by mouth Daily at bedtime Duration: 90 Days Unchanged multivitamin (B 100 Complex oral tablet) 1 tab(s) by mouth Every day Duration: 90 Days Unchanged multivitamin (Daily Tin oral tablet) 1 tab(s) by mouth Every day Duration: 90 Days Unchanged multivitamin with minerals (Celebrate Multivitamin oral tablet, chewable) 1 tab(s) Chewed Once a day Duration: 90 Days Unchanged nitroGLYcerin (nitroglycerin 0.3 mg sublingual tablet) 1 tab(s) under the tongue Every 5 minutes as needed for for chest pain Duration: 30 Days Unchanged pantoprazole (pantoprazole 40 mg oral enteric coated tablet) 1 tab(s) by mouth Two (2) times a day Duration: 90 Days Unchanged pramipexole (pramipexole 0.125 mg oral tablet) 1 tab(s) by mouth Three (3) times a day as needed for tremor Duration: 90 Days Unchanged senna (senna (sennosides) 8.6 mg oral tablet) 2 tab(s) by mouth Daily at bedtime as needed for for constipation Duration: 90 Days Unchanged thiamine (thiamine 100 mg oral tablet) 1 tab(s) by mouth Every day Duration: 90 Days Pharmacy Information [facility]: [address] [place], [place] [phone] Please take this list to your next doctor s visit. Bring all medications you take, including over the counter medications, herbals and other supplements with you to your doctor s visit. Patients and families are reminded to discard old lists and to update any records with all medication providers or retail pharmacies. Education Materials Open Lymph Node Biopsy, Care After This sheet gives you information about how to care for yourself after your procedure. Your health care provider may also give you more specific instructions. If you have problems or questions, contact your health care provider. What can I expect after the procedure? After the procedure, it is common to have: Bruising. Soreness. Mild swelling. Follow these instructions at home: Medicines Take mcul-dfl-mpevbat and prescription medicines only as told by your health care provider. If you were prescribed an antibiotic medicine, take it as told by your health care provider. Do notstop taking the antibiotic even if you start to feel better. Incision care Follow instructions from your health care provider about how to take care of your incision. Make sure you: ? Wash your hands with soap and water before and after you change your bandage (dressing). If soap and water are not available, use hand customer leader. ? Change your dressing as told by your health care provider. ? Leave stitches (sutures), skin glue, or adhesive strips in place. These skin closures may need to stay in place for 2 weeks or longer. If adhesive strip edges start to loosen and curl up, you may trim the loose edges. Do not remove adhesive strips completely unless your health care provider tells you to do that. Check your incision area every day for signs of infection. Check for: ? More redness, swelling, or pain. ? Fluid or blood. ? Warmth. ? Pus or a bad smell. Driving Do not drive for 24 hours if you were given a sedative during your procedure. Do not drive or use heavy machinery while taking prescription pain medicine. General instructions Return to your normal activities as told by your health care provider. Ask your health care provider what activities are safe for you. Do not take baths, swim, or use a hot tub until your health care provider approves. Ask your healthcare provider if you may take showers. You may only be allowed to take sponge baths. Keep all follow-up visits as told by your health care provider. This is important. Contact a health care provider if: You have more redness, swelling, or pain around your incision. You have fluid or blood coming from your incision. Your incision feels warm to the touch. You have pus or a bad smell coming from your incision. You have a fever. You have pain or numbness that gets worse or lasts longer than a few days. Summary After a lymph node biopsy, it is common to have bruising, soreness, and mild swelling. Follow your health care provider's instructions about taking care of yourself at home. You will be told how to take medicines, take care of your incision, and check for infection. Return to your normal activities as told by your health care provider. Ask your health care provider what activities are safe for you. Contact a health care provider if you have more redness, swelling, or pain around your incision, you have a fever, or you have worsening pain or numbness. This information is not intended to replace advice given to you by your health care provider. Make sure you discuss any questions you have with your health care provider. Document Released: 04/16/2016 Document Revised: 10/26/2018 Document Reviewed: 10/26/2018 [employer] Patient Education 2020 [employer]. Monitored Anesthesia Care, Care After These instructions provide you with information about caring for yourself after your procedure. Your health care provider may also give you more specific instructions. Your treatment has been plannedaccording to current medical practices, but problems sometimes occur. Call your health care provider if you have any problems or questions after your procedure. What can I expect after the procedure? After your procedure, you may: Feel sleepy for several hours. Feel clumsy and have poor balance for several hours. Feel forgetful about what happened after the procedure. Have poor judgment for several hours. Feel nauseous or vomit. Have a sore throat if you had a breathing tube during the procedure. Follow these instructions at home: For at least 24 hours after the procedure: Have a responsible adult stay with you. It is important to have someone help care for you until youare awake and alert. Rest as needed. Do not: ? Participate in activities in which you could fall or become injured. ? Drive. ? Use heavy machinery. ? Drink alcohol. ? Take sleeping pills or medicines that cause drowsiness. ? Make important decisions or sign legal documents. ? Take care of children on your own. Eating and drinking Follow the diet that is recommended by your health care provider. If you vomit, drink water, juice, or soup when you can drink without vomiting. Make sure you have little or no nausea before eating solid foods. General instructions Take blrs-dnr-jimgrzz and prescription medicines only as told by your health care provider. If you have sleep apnea, surgery and certain medicines can increase your risk for breathing problems. Follow instructions from your health care provider about wearing your sleep device: ? Anytime you are sleeping, including during daytime naps. ? While taking prescription pain medicines, sleeping medicines, or medicines that make you drowsy. If you smoke, do not smoke without supervision. Keep all follow-up visits as told by your health care provider. This is important. Contact a health care provider if: You keep feeling nauseous or you keep vomiting. You feel light-headed. You develop a rash. You have a fever. Get help right away if: You have trouble breathing. Summary For several hours after your procedure, you may feel sleepy and have poor judgment. Have a responsible adult stay with you for at least 24 hours or until you are awake and alert. This information is not intended to replace advice given to you by your health care provider. Make sure you discuss any questions you have with your health care provider. Document Released: 07/11/2016 Document Revised: 06/19/2018 Document Reviewed: 07/11/2016 [employer] Patient Education 2020 [employer]. Additional Information VACCINATE! IT SAVES LIVES! Members of the community who have not yet received the COVID-19 vaccine and would like to receive it can visit one of [facility] vaccine clinics. There are many vaccine clinic locations within the [facility]. For locations and available times, please visit https://gettheshot.coronavirus.[place].gov/. It is important to note that some COVID mobile vaccine clinics are held outdoors and may be canceled in rainy or stormy conditions. To learn more about pediatric vaccinations (ages 5-11), we invite you to visit the [facility] webpage. https://www.[facility].org/pages/2259-Vaevc-Xhkxrrzudce-Lbfksoxxxp-Yxlsv-Svn stions.htmlTo learn more about the COVID-19 vaccine, we invite you to visit the CDC website for a list of frequently asked questions.https://www.cdc.gov/coronavirus/2019-ncov/vaccines/faq.html [facility] [employer] Patient Portal Access Instructions: Stay connected with your healthcare team and access your personal medical information anytime with the [employer] Patient Portal. Please follow the directions below to create your [employer] account: 1.Access the email account you provided upon registration to the hospital/physician office.2.Look for an invitation email from [facility].3.Open the email and access the invitation link: AcceptInvitation to [facility].4.Fill in the required pineda to create your account. To access your account, visit [email or web address]. Click the blue button labeled Access Patient Portal and then log in with the username and password that you created in the steps above. You will be able to view your test results, lab results, a summary of your visits, upcoming appointments and more. There is also a convenient messaging option where you can send secure messages to your p T[employer]Povider. In addition, you will have the ability to download any documents or summaries to your computer and/or send the information securely to a physician. Remember that your healthcare information is confidential, so carefully consider who you will allowto register on the [facility] Patient Portal for access to your information. You can also access the [facility] Patient Portal on the [employer] fernando. Simply click on Patient Portal and then log into your account. If you would like to receive a full copy of your medical records, please contact the [facility] Medical Records Department by calling [phone], Tuesday through Tuesday between 8 a.m. and 4:30 p.m. HOW TO SAFELY DISPOSE OF PRESCRIPTION MEDICATIONS Please use one of the following methods to safely dispose of your unused medications. 1.Use a drug disposal kit: the drug disposal pouch allows you to safely discard your old and unuseddrugs. Ask your nurse to give you one when you are discharged.2.Visit a local take-back location: Many local pharmacies and police departments have programs that collect old and unwanted prescriptiondrugs. Call your local pharmacy or go to [email or web address] to find one close to you.3.Make use of household items: Use cat litter or old coffee grounds to dispose medications if other options arenot available. Mix your drugs with these household products, seal them in an airtight container andthrow it into the garbage. Call [facility]: [phone] to be sure your drugs can be disposed of in this way. Some medicines may require a different approach.4.Never flush your medications down the toilet. IF YOU HAVE BEEN PRESCRIBED AN OPIOID FOR PAIN If you have been prescribed an opioid (such as hydrocodone, oxycodone or morphine), it is critical to understand the possible side effects and risks of opioid pain medications. Even when taken as directed, opioids can have several side effects including: Tolerance, meaning you might need to take more of a medication for the same pain relief. Nausea, vomiting and/or constipation. Sleepiness, dizziness, dry mouth, confusion, depression or itching. Physical dependence, meaning you have withdrawal symptoms when a medication is stopped, can develop within a few days. KNOW YOUR RESPONSIBILITIES It is important to know exactly how much and how often to take the opioid pain medications you are prescribed. Never take opioids in higher amounts or more often than prescribed. Do not combine opioids with alcohol or other drugs that cause drowsiness, such as benzodiazepines, also known as benzos, including diazepam and alprazolam, muscle relaxants or sleep aids. Never sell or share prescription opioids. This is illegal. Store opioids in a secure place and out of reach of others (including children, family, friends and visitors). The last page of this document has been signed and retained as a CHART COPY. Signatures Patient Education Materials Open Lymph Node Biopsy, Care After Monitored Anesthesia Care, Care After Medication Leaflets My discharge plan and instructions have been reviewed and explained to me and IMIKA LOREN D understand my current condition and have read and understand these discharge instructions. I have received a written copy of the plan/instructions. If I have questions, I am aware that I should contact my doctor. Patient/Heel Scourer Signature: Date/Time: Relationship to Patient: Witness Name/Signature: Date/Time: 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 Assessment Postanesthesia assessment Vitals: Vital signs from flowsheet : Vital Signs 02/27/2024 11:25 EST Heart Rate Monitored 57 bpm bpm Respiratory Rate - Anes 12 br/min br/min Systolic Blood Pressure Non-Invasive 84 mmHg mmHg Diastolic Blood Pressure Non-Invasive 54 mmHg mmHg 02/27/2024 11:20 EST Heart Rate Monitored 56 bpm bpm Respiratory Rate - Anes 12 br/min br/min Systolic Blood Pressure Non-Invasive 93 mmHg mmHg Diastolic Blood Pressure Non-Invasive 57 mmHg mmHg 02/27/2024 11:15 EST Heart Rate Monitored 57 bpm bpm Respiratory Rate - Anes 12 br/min br/min Systolic Blood Pressure Non-Invasive 92 mmHg mmHg Diastolic Blood Pressure Non-Invasive 58 mmHg mmHg 02/27/2024 11:10 EST Heart Rate Monitored 57 bpm bpm Respiratory Rate - Anes 10 br/min br/min Systolic Blood Pressure Non-Invasive 99 mmHg mmHg Diastolic Blood Pressure Non-Invasive 60 mmHg mmHg 02/27/2024 11:05 EST Heart Rate Monitored 55 bpm bpm Respiratory Rate - Anes 15 br/min br/min Systolic Blood Pressure Non-Invasive 97 mmHg mmHg Diastolic Blood Pressure Non-Invasive 70 mmHg mmHg 02/27/2024 11:00 EST Heart Rate Monitored 57 bpm bpm Respiratory Rate - Anes 14 br/min br/min Systolic Blood Pressure Non-Invasive 78 mmHg mmHg Diastolic Blood Pressure Non-Invasive 50 mmHg mmHg 02/27/2024 10:55 EST Heart Rate Monitored 76 bpm bpm Respiratory Rate - Anes 11 br/min br/min Systolic Blood Pressure Non-Invasive 85 mmHg mmHg Diastolic Blood Pressure Non-Invasive 51 mmHg mmHg 02/27/2024 10:51 EST Systolic Blood Pressure Non-Invasive 108 mmHg mmHg Diastolic Blood Pressure Non-Invasive 60 mmHg mmHg 02/27/2024 10:50 EST Heart Rate Monitored 63 bpm bpm 02/27/2024 8:56 EST Temperature Temporal Artery 36.9 DegC Peripheral Pulse Rate 66 bpm Respiratory Rate 14 br/min Systolic Blood Pressure Non-Invasive 112 mmHg Diastolic Blood Pressure Non-Invasive 68 mmHg , Measurements from flowsheet . Mental status: alert & oriented x 4. Respiratory function: respirations are non-labored. Respiratory support: none. CV function: Normal rate. Cardiovascular support: none. Pain. Nausea status: see nursing documentation of medications. Postoperative hydration status: within normal limits. Digitally Signed by GREGORIO BAKER on 02/27/2024 11:[address] [facility]11-25-2024 Anesthesiology Consult note Patient: RADHA BRENNAN Age: 68 years Sex: Male : 1955 Associated Diagnoses: None Author: GREGORIO BAKER Preoperative Information Time of last food or liquid consumption: 02/27/2024 00:00:00 Anesthesia history Patient's history: negative, aggression. Family's history: negative. Health Status Allergies: Allergic Reactions (Selected) Severity Not Documented Bee Stings- Swelling and unknown. Tuberculin purified protein derivative- Unknown., Allergies (3) ActiveSeverityReaction Bee StingsSwelling tuberculin purified protein derivativeUnknown Bee StingsUnknown Current medications: (Selected) Inpatient Medications Ordered Dextrose 50% IV Push: 12.5 gram(s), 25 mL, IV Push, AsDirected, PRN: Hypoglycemia LR 1000 mL: 20 mL/hr, Intravenous Normal Saline 500 mL 500 mL: 20 mL/hr, Intravenous lidocaine 1% preservative-free injectable solution: 2.5 mg, 0.25 mL, Intradermal, prep pharm Prescriptions Prescribed Alcohol Swabs: See Instructions, dispense 200 EtOH wipes; check blood sugar twice daily (fasting and before bed), 3 refills, dx E16.2, 200 EA, 3 Refill(s) B 100 Complex oral tablet: 1 tab(s), Oral, Daily, for 90 day(s), 90 tab(s), 1 Refill(s) Blood Glucose Test Machine: See Instructions, dx E16.2 check blood sugar twice daily, 1 EA, 0 Refill(s) Blood Glucose Test Strips: See Instructions, dispense 200 glucose test strips; check blood sugar twice daily (fasting and before bed), 3 refills, dx E16.2, 200 EA, 3 Refill(s) Celebrate Multivitamin oral tablet, chewable: 1 tab(s), Chewed, qDay, for 90 day(s), 90 tab(s), 1 Refill(s) DME MISCellaneous: See Instructions, dx I10 dispense one automated upper arm spygmomanometer with supplies and digital readout., 1 EA, 0 Refill(s) DME MISCellaneous: See Instructions, dx I87.2 and I89.0 dispense 4 pairs of close toed knee high compression stockings 20-30 mmHg, 4 EA, 2 Refill(s) Daily Tin oral tablet: 1 tab(s), Oral, Daily, for 90 day(s), 90 tab(s), 1 Refill(s) EpiPen 2-Sebastian 0.3 mg injectable kit: 0.3 mg, Subcutaneous, AsDirected, for 2 dose(s), PRN: Allergic reaction, 1 kit(s), 1 Refill(s) Lancets: See Instructions, dispense 200 lancets; check blood sugar twice daily (fasting and before bed), 3 refills, dx E16.2, 200 EA, 3 Refill(s) aspirin 81 mg oral delayed release tablet: 81 mg, 1 tab(s), Oral, qDay, for 90 day(s), 90 tab(s), 1Refill(s) atorvastatin 80 mg oral tablet: 80 mg, 1 tab(s), Oral, qDay, 90 tab(s), 1 Refill(s) busPIRone 10 mg oral tablet: 10 mg, 1 tab(s), Oral, TID, PRN: stress, 90 tab(s), 0 Refill(s) clopidogrel 75 mg oral tablet: 75 mg, 1 tab(s), Oral, qDay, for 90 day(s), 90 tab(s), 1 Refill(s) escitalopram 20 mg oral tablet: 20 mg, 1 tab(s), Oral, qDay, 90 tab(s), 1 Refill(s) folic acid 1 mg oral tablet: 1 mg, 1 tab(s), Oral, qDay, for 90 day(s), 90 tab(s), 1 Refill(s) lamoTRIgine 100 mg oral tablet: 100 mg, 1 tab(s), Oral, BID, for 90 day(s), 180 tab(s), 1 Refill(s) levETIRAcetam 500 mg oral tablet: 500 mg, 1 tab(s), Oral, qDay, for 90 day(s), 90 tab(s), 1 Refill(s) metoprolol succinate 25 mg oral TABLET extended release: 12.5 mg, 0.5 tab(s), Oral, qDay, for 90 day(s), Do not crush or chew (controlled release), 45 tab(s), 1 Refill(s) mirtazapine 30 mg oral tablet: 30 mg, 1 tab(s), Oral, qHS, for 90 day(s), 90 tab(s), 1 Refill(s) nitroglycerin 0.3 mg sublingual tablet: 0.3 mg, 1 tab(s), Sublingual, q5min, for 30 day(s), PRN: for chest pain, 100 tab(s), 2 Refill(s) pantoprazole 40 mg oral enteric coated tablet: 40 mg, 1 tab(s), Oral, BID, for 90 day(s), 180 tab(s), 1 Refill(s) pramipexole 0.125 mg oral tablet: 0.125 mg, 1 tab(s), Oral, TID, for 90 day(s), PRN: tremor, 270 tab(s), 1 Refill(s) senna (sennosides) 8.6 mg oral tablet: 17.2 mg, 2 tab(s), Oral, qHS, for 90 day(s), PRN: for constipation, 180 tab(s), 1 Refill(s) thiamine 100 mg oral tablet: 100 mg, 1 tab(s), Oral, Daily, for 90 day(s), 90 tab(s), 1 Refill(s) Documented Medications Documented Vitamin C 500 mg oral tablet: 500 mg, 1 tab(s), Oral, qDay, 90 tab(s), 0 Refill(s) acetaminophen 500 mg oral capsule: 1,000 mg, 2 cap(s), Oral, q4h, PRN: for fever, 120 cap(s), 0 Refill(s) ferrous sulfate 325 mg (65 mg elemental iron) oral delayed release tablet: 325 mg, 1 tab(s), Oral, qDay, 90 tab(s), 0 Refill(s), Medications (4) Active Scheduled: (1) lidocaine 1% (MPF) 2 mL vial pf 2.5 mg 0.25 mL, Intradermal, prep pharm Continuous: (2) Lactated Ringers Infusion 1000 mL 1,000 mL, Intravenous, 20 mL/hr Sodium Chloride 0.9% intravenous solution 500 mL 500 mL, Intravenous, 20 mL/hr PRN: (1) dextrose 50% Solution Disp syringe 50 mL 12.5 gram(s) 25 mL, IV Push, AsDirected Problem list: Medical Anxiety / SNOMED CT 22297722 / Confirmed Afib / SNOMED CT 81850325 / Confirmed 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 Blood clot / SNOMED CT 841528438 / Confirmed Cachexia / SNOMED CT 313534165 / Confirmed Carotid stenosis / SNOMED CT 214486574 / Confirmed Constipation / SNOMED CT 11876875 / Confirmed CAD (coronary artery disease) / SNOMED CT 69870365 / Confirmed Costochondritis / SNOMED CT 0787423133 / Confirmed Protein-calorie malnutrition, severe / SNOMED CT 637767106 / Confirmed Wears dentures / SNOMED CT 660950890 / Confirmed Folic acid deficiency / SNOMED CT 677972467 / Confirmed GERD (gastroesophageal reflux disease) / SNOMED CT 399705834 / Confirmed Ventral hernia / SNOMED CT 4527153868 / Confirmed History of stroke with residual deficit / SNOMED CT 6571307272 / Confirmed S/P CABG x 3 / SNOMED CT 2456024620 / Confirmed S/P coronary artery stent placement / SNOMED CT 9518500567 / Confirmed Hypercoagulable state due to atrial fibrillation / SNOMED CT 3394588270 / Confirmed HLD (hyperlipidemia) / SNOMED CT 71205346 / Confirmed Cognitive impairment / SNOMED CT 1888600516 / Confirmed Insomnia / SNOMED CT 517526297 / Confirmed Iron deficiency / SNOMED CT 09819653 / Confirmed Lipoma / SNOMED CT 581605973 / Confirmed Low back pain / SNOMED CT 548757047 / Confirmed Magnesium deficiency / SNOMED CT 245885189 / Confirmed Immunization refused / SNOMED CT 8621218758 / Confirmed Lung nodules / SNOMED CT 3699948926 / Confirmed PVCs (premature ventricular contractions) / SNOMED CT 319040157 / Confirmed Screening for cardiovascular condition / SNOMED CT 871616867 / Confirmed Screening for prostate cancer / SNOMED CT 079836958 / Confirmed Peripheral vascular disease / SNOMED CT 8124209473 / Confirmed Tinea versicolor / SNOMED CT 32608641 / Confirmed PTSD (post-traumatic stress disorder) / SNOMED CT 94465276 / Confirmed Prediabetes / SNOMED CT 8930542715 / Confirmed Major depressive disorder, recurrent / SNOMED CT 007715786 / Confirmed Screening due / SNOMED CT 555851763 / Confirmed Seizure disorder / SNOMED CT 383521303 / Confirmed Syncope / SNOMED CT 405883054 / Confirmed TBI (traumatic brain injury) / SNOMED CT 722315 / Confirmed Tremor / SNOMED CT 78689604 / Confirmed, Active Problems (42) Afib Anaphylactic reaction to bee sting Anxiety Blood clot Cachexia CAD (coronary artery disease) Carotid stenosis Cognitive impairment Constipation Costochondritis Folic acid deficiency GERD (gastroesophageal reflux disease) History of stroke with residual deficit HLD (hyperlipidemia) Hypercoagulable state due to atrial fibrillation Immunization refused Insomnia Iron deficiency Lipoma Low back pain Lung nodules Magnesium deficiency Major depressive disorder, recurrent Peripheral vascular disease Prediabetes Protein-calorie malnutrition, severe PTSD (post-traumatic stress disorder) PVCs (premature ventricular contractions) S/P CABG x 3 S/P coronary artery stent placement Screening due Screening for cardiovascular condition Screening for prostate cancer Seizure disorder Syncope TBI (traumatic brain injury) Tinea versicolor Tobacco use Tobacco use Tremor Ventral hernia Wears dentures Histories Past Medical History: No active or resolved past medical history items have been selected or recorded. Family History: Cancer Mother () Brother Sister Grandparent Hypertension Sister Brother Heart disease Sister Anemia Mother () Arthritis Mother () Father Sister Brother Gallbladder disease Sister Mental illness Grandparent Glaucoma Mother () Brother Lung disorder Mother () Hyperlipidemia Sister Brother Father Mother () Depression Mother () Sister Osteoarthritis Sister Grandparent Mother () Diabetes Mother () Sister Brother Grandparent Lung cancer Father COPD (Chronic Obstructive Pulmonary Disease) Assessment Test scale Mother () Procedure history: Open heart surgery (5594466) in the month of 10/2021 at 66 Years. Colonoscopy (153191919) in 2013 at 58 Years. Cardiac care (2227417452). Comments: 04/21/2023 11:39 EST - Jocelyn Bales NURSING SPECIALIST stent placed Social History: Social & Psychosocial Habits Alcohol 02/16/2024 Use: Past Substance Abuse 02/16/2024 Use: Never Tobacco 02/16/2024 Tobacco Use: 10 or more cigarettes (1/ Nutrition/Health 02/16/2024 Caffeine intake amount: 4 pots of coffee daily Physical Examination Vital Signs 02/27/2024 8:56 EST Temperature Temporal Artery 36.9 DegC Peripheral Pulse Rate 66 bpm Respiratory Rate 14 br/min Systolic Blood Pressure Non-Invasive 112 mmHg Diastolic Blood Pressure Non-Invasive 68 mmHg Vital Signs (last 24 hrs) Last Charted Temp Ejcuzpsf20.9 DegC (FEB 26 08:56) TUH720 mmHg (FEB 26 08:56) DBP68 mmHg (FEB 26 08:56) Measurements from flowsheet : Measurements 02/27/2024 8:56 EST Height 173 cm Admission Weight 173 kg Hadley Body Weight 68.65 kg Pain assessment: Pain Assessment 02/27/2024 8:56 EST Primary Pain Location Axilla Primary Pain Laterality Right Primary Pain Intensity 0 Pain Scale Type 0-10 Pain scale . General: Alert and oriented. Airway: Normal temporomandibular joint mobility, Normal mouth, Normal neck range of motion. Mallampati classification: II (soft palate, fauces, uvula visible). Dentition Evaluation: Dentures, lower, Dentures, upper. Respiratory: Respirations are non-labored, smokes alot. Cardiovascular: Normal rate. Neurologic: Alert, Oriented. Review / Management Results review: No qualifying data available , Lab results 02/27/2024 10:27 EST SN - Assess - LOC Alert, Awake SN - Assess - Orientation Oriented X 3 SN - Assess - Post-op Skin Integrity Intact/Dry 02/27/2024 10:27 EST SN - CAt - Case Attendee SN - CAt - Case Attendee SN - CAt - Case Attendee SN - CAt - Case Attendee SN - CAt - Case Attendee SN - CAt - Case Attendee SN - CAt - Case Attendee SN - CAt - Case Attendee SN - CAt - Case Attendee SN - CAt - Case Attendee SN - CAt - Role Performed Primary Surgeon SN - CAt - Role Performed FLOOR CASHIER SN - CAt - Role Performed Belt Press Operator 1 SN - CAt - Role Performed Scrub 1 SN - CAt - Role Performed Natural Gas Trader 1 02/27/2024 9:24 EST SN - Preop - CTm Pt in SDS Room 02/27/2024 8:40 SN - Preop - CTm Pt Ready for OR/Proced 02/27/2024 9:24 02/27/2024 9:23 EST Continuous IV Infusions NaCl Forearm Right 02/27/2024 20 gauge Peripheral IV Activity: Insert new site Peripheral IV Dressing Activity: Applied, Transparent dressing Peripheral IV Line Status/Patency: Flushes easily Peripheral IV Number of Attempts: 1 02/27/2024 9:22 EST Sodium Chloride 0.9% Begin Bag 500 mL mL 02/27/2024 8:56 EST Height 173 cm Admission Weight 173 kg Hadley Body Weight 68.65 kg Temperature Temporal Artery 36.9 DegC Peripheral Pulse Rate 66 bpm Respiratory Rate 14 br/min Systolic Blood Pressure Non-Invasive 112 mmHg Diastolic Blood Pressure Non-Invasive 68 mmHg Primary Pain Location Axilla Primary Pain Laterality Right Primary Pain Intensity 0 Pain Scale Type 0-10 Pain scale Heart Rhythm Regular Oxygen Therapy Room air Oxygen Saturation 97 % Abdomen Description Non-distended, Soft, Flat Bowel Sounds All Quadrants Present Urinary Elimination Voiding, no difficulties Skin Temperature Warm Skin Description Normal for ethnicity Skin Integrity Intact IV Present Present Extremity Movement Equal Characteristics of Speech Clear Level of Consciousness Alert Affect/Behavior Appropriate, Calm, Cooperative Orientation Oriented x 4 Allergies Yes Anesthesia Extension Set Applied Yes Office Auditor On Yes Consent Form Signed Yes Patient Dressed In Hospital gown Pre-op Preparation Dentures, full removed CHG Preoperative Wash/Wipe Night before procedure, Day of procedure Preop Nasal Swab Povidone-Iodine CHG Skin Prep Completed for Eligible Surgery History & Physical Update On Chart Yes History & Physical On Chart Yes Obstructive Sleep Apnea Assess Completed Yes Orientation Assessment Oriented x 4 Belongings At Bedside Jacket, Pants, Shirt, Slippers, Undergarments, Wallet Positioning Repositions self Sequential Compression Device bilateral knee high applied/on NPO Status Maintained, More than 8 hours Standard Safety ID band on, Allergy Band on, Call device within reach, Bed in low position, Wheels locked, Visitor at bedside, Safety level maintained Allergy Band on and Verified Yes Patient ID Band on and Verified Yes Site Verified by Patient/Family Yes Anesthesia Consent Signed Yes Blood Consent Signed Yes Last Fluid Intake 02/26/2024 21:00 Last Food Intake 02/26/2024 20:00 Last Void 02/27/2024 9:00 02/27/2024 8:46 EST Designated Person #1 We May Share PHI Designated Person #1 We May Share PHI Designated Person #1 Relationship Daughter Designated Person #2 We May Share PHI Designated Person #2 We May Share PHI Designated Person #2 Relationship Daughter Privacy Restrictions Requested None Status N/A Sensory Deficits None Sleep Apnea Snore No Sleep Apnea Tired No Sleep Apnea Obstruction No Sleep Apnea Pressure No Sleep Apnea BMI No Sleep Apnea Age Yes Sleep Apnea Neck No Sleep Apnea Gender Yes Sleep Apnea Score 2 Diagnosed With Sleep Apnea No Advanced Directives Yes Advance Directive Type [place] Durable Power of [place] Inspector [facility], [place] Declaration (Living Will) Advance Directive Location Unable to obtain copy Infectious Disease Symptoms Patient states no symptoms Infectious Disease Recent Exposure No Alcohol and Drug Use No Employee of Institutional Living No Health Care Employee No History of Exposure to TB No History of Positive Chest X-Ray for TB No History of Positive TB Skin Test No Homeless No Known Immunosuppression No Recent Immigrant No Resident of Institutional Living No Bloody Sputum No Fatigue No Fever No Loss of Appetite No Night Sweats No Persistent Cough > 3 Weeks No Weight Loss No Pre-Op Patient Education NPO after midnight, No smoking after midnight, No jewelry, Responsible Alliance Party, Aware of surgery location, 1 bottle CHG wash with instructions given, Instructed to take orderedmedications, SSI prevention handout given SN - Preprocedure Comments Spoke with patient, Verbalizes/Nonverbally indicates understanding, Other: MORNING MEDICATIONS Barriers to Learning None evident Teaching Method Explanation, Printed materials Preferred Spoken Language Kinyarwanda Preferred Written Language Kinyarwanda Teaching Evaluation No further teaching needed Safety Brochure Information Reviewed Yes Bridget Vásquez Video Viewed No Patient's Current Physicians HALKO Discharge To, Anticipated Home independently Prev Test Positive/Diagnosis w/COVID-19 Yes Previous COVID-19 Positive Date 2021 Current Quarantine/Isolated any Illness No Any Contact with Sick Animals/Birds No Traveled Anywhere in Last 30 Days No Lost Weight Unintentionally Recently No Eat Poorly Due to Decreased Appetite Yes Total MST Score 1 N/A Personal Devices, Patient Valuables Dentures, lower, Dentures, upper Anesthesia/Transfusions Prior anesthesia Admission Note-Nursing Same Day Patient History 02/27/2024 8:33 EST General Surgery Office Note PRIOR AUTH Consent to Procedure Scanned Consent to Procedure Scanned 02/26/2024 13:30 EST Kelly DE LEON . Assessment and Plan [place] [employer]esthesi[employer] (ASA) physical status classification: Class III. Anesthetic Preoperative Plan Anesthetic technique: MAC. Informed consent: signed by patient. Digitally Signed by GREGORIO BAKERFLOOR CASHIER on 02/27/2024 10:42 AM Digitally Signed by GREGORIO BAKERFLOOR CASHIER on 02/27/2024 11:[address] [facility]11-01-2024 Note ORIGINAL EXAMINATION: CT OF THE ABDOMEN AND PELVIS WITH XGYWBCVB78/1/2024 9:13 am TECHNIQUE: CT of the abdomen and pelvis was performed with the administration of intravenous contrast. Multiplanar reformatted images are provided for review. Automated exposure control, iterative reconstruction, and/or weight based adjustment of the mA/kV was utilized to reduce the radiation dose to as low as reasonably achievable. COMPARISON: None HISTORY: ORDERING SYSTEM PROVIDED HISTORY: Reason for Exam: abd pain, fixed groin lymphadenopathy, evaluate for mass FINDINGS: The liver is unremarkable in contour. No suspicious hepatic lesions.Small focus of fatty deposition along the anterior falciform ligament.There is no intra or extrahepatic biliary duct dilation. The pancreas, spleen, and bilateral adrenal glands are unremarkable. The kidneys enhance symmetrically.No hydronephrosis.No suspicious renal lesions. Moderate circumferential thickening and enhancement of the urinary bladder wall. No focal mass. Unremarkable appearance of the stomach.No dilated loops of small bowel or small bowel wall thickening.No acute or suspicious colonic abnormality.Nonvisualized appendix; pericecal inflammation. 1.5 cm left para-aortic lymph node in the retroperitoneum. Left inguinal adenopathy up to 1.3 cm. Nonaneurysmal mildly atherosclerotic aortoiliac arteries. No acute osseous abnormality.No aggressive osseous lesions.Varying degrees of multifocal degenerative change, most notably at L5-S1. The partially imaged lower chest is dictated separately. IMPRESSION: Thickening and enhancement of the urinary bladder wall. Correlate with urinalysis for cystitis. 1.5 cm left periaortic lymph node and left inguinal adenopathy up to 1.3 cm. This may be sequela of lymphoproliferative disorder. Other neoplastic and hyperplastic etiologies are not excluded. I have personally reviewed the images of this examination and agree with the resident's findings and interpretation. Interpreted by: Parish Blank MD Preliminary Report By: Parish Miranda Electronically signed By Parish Blank MD Dictated Date: 02/03/2024 11:36:13 AM Prelim Date: 02/03/2024 2:46:30 PM Sign Date: 02/03/2024 2:46:30 PM Ordering Provider: [facility]10-25-2024 Telephone encounter Note* Telephone Encounter - Nilesh Olivas MD - 01/27/2024 3:33 PM EDT Yes for tremors, pt stated he would discuss with his home health aide, if so will refer to [place] for this HOWEVER I dont think they can help his type of tremor [facility] [id number] Miscellaneous Notes* Telephone Encounter - Nilesh Olivas MD - 01/27/2024 3:33 PM EDT Yes for tremors, pt stated he would discuss with his home health aide, if so will refer to [place] for this HOWEVER I dont think they can help his type of tremor * Telephone Encounter - Nneka Amirah - 01/26/2024 2:58 PM EDT Patient's son asked who you wanted to refer patient to? For his tremors? No referral placed yet, nothing in notes. documented in this encounterGeneral [facility] [id number] Telephone encounter Note* Telephone Encounter - Nneka Laddnabil - 01/26/2024 2:58 PM EDT Patient's son asked who you wanted to refer patient to? For his tremors? No referral placed yet, nothing in notes. [facility] [id number] History of Present illness Narrative* Nilesh Olivas MD - 01/26/2024 2:40 PM EDT Images from the original note were not included. CHIEF COMPLAINT: Radha Brennan is a 68 y.o. male here today for Chief Complaint Patient presents with Seizures HISTORY OF PRESENT ILLNESS: History of Present Illness The patient presents for evaluation of tremors. He reports that his tremors, which began following open-heart surgery two years ago, have not improved and occasionally worsen. The tremors affect both hands and are more pronounced at rest, but seemto lessen with activity, such as mowing the yard. He is currently taking primidone, 2 tablets threetimes a day, but has noticed no improvement. He has discontinued amiodarone for several months. He h as not experienced any seizures recently, with the last one occurring over a year ago. He was advised to be seizure-free for a year before resuming driving. He has no issues with walking. He does not report any symptoms such as tongue biting, waking up with a sore tongue or cheek, or finding blood on the pillow. He also does not report any instances of bedwetting. He recently underwent eye surgery, receiving new lenses in both eyes, and reports improved vision. He was informed that he does not require glasses for driving. He was previously under the care of a neurologist in [place] but has since changed doctors SOCIAL HISTORY He used to drink alcohol but quit about 7 or 8 years ago. LAST VISIT: Radha Brennan, 67 y.o., male presents via telemedicine (pt consents) for follow-up on seizures and tremors. Pt has not had any seizures since his last visit, however he feels his tremors are worse. Seems to get worse over the course of the day, by mid-afternoon they are affecting his functioning. He is now off of the amiodarone but he has not improved. All he knows is the tremors started after his cardiac surgery. No family h/o tremors except for his grandma who had Parkinson's disease. Does feel that the primidone three times a day helps and that a higher dose may be beneficial Current Outpatient Medications on File Prior to Visit Medication Sig Dispense Refill acetaminophen (Tylenol) 500 MG tablet Take 1,000 mg by mouth every 6 (six) hours if needed. ascorbic acid (Vitamin C) 500 MG tablet Take 500 mg by mouth in the morning. aspirin 81 MG EC tablet Take 81 mg by mouth in the morning. atorvastatin (Lipitor) 80 MG tablet Take 80 mg by mouth in the morning. clopidogrel (Plavix) 75 MG tablet Take 75 mg by mouth in the morning. EPINEPHrine (Epipen) 0.3 MG/0.3ML injection syringe Inject 1 Syringe as directed 1 (one) time escitalopram (Lexapro) 20 MG tablet Take 20 mg by mouth in the morning. folic acid (Folvite) 1 MG tablet Take 1 mg by mouth in the morning. HYDROcodone-acetaminophen ([place]) 5-325 MG tablet Take 1 tablet by mouth every 6 (six) hours if needed lamoTRIgine (LaMICtal) 100 MG tablet Take 1 tablet (100 mg) by mouth in the morning and 1 tablet (100 mg) before bedtime. 60 tablet 5 levETIRAcetam (Keppra) 500 MG tablet Take 1 tablet (500 mg) by mouth in the morning and 1 tablet (500 mg) before bedtime. 60 tablet 11 magnesium oxide (Mag-Ox) 400 mg tablet Take 400 mg by mouth in the morning. magnesium oxide (Mag-Ox) 400 MG tablet Take 400 mg by mouth in the morning. metoprolol succinate XL (Toprol-XL) 25 MG 24 hr tablet Take 25 mg by mouth in the morning. Multiple Vitamin (multivitamin) capsule Take 1 capsule by mouth in the morning. pantoprazole (ProtoNix) 40 MG EC tablet Take 40 mg by mouth in the morning. Take before meals. pramipexole (Mirapex) 0.125 MG tablet Take 0.125 mg by mouth in the morning and 0.125 mg in the evening and 0.125 mg before bedtime. primidone (Mysoline) 50 MG tablet Take one-half tablet daily in the afternoon in addition to your 50 mg dose for a total of 75 mg. 15 tablet 5 primidone (Mysoline) 50 MG tablet Take two (2) tablets in the morning, two (2) tablets in the afternoon, and two (2) tablets in the evening. 180 tablet 2 primidone (Mysoline) 50 MG tablet TAKE ONE TABLET BY MOUTH THREE TIMES A DAY ( TAKE IN THE MORNING,AND IN THE EVENING, AND AGAIN BEFORE BEDTIME) 90 tablet 1 Senna-Time 8.6 MG tablet Take 1 tablet by mouth in the morning. No current facility-administered medications on file prior to visit. Past Medical History: Diagnosis Date Atherosclerotic heart disease (CMS/HCC) Atrial septal aneurysm (CMS/HCC) Chronic back pain CVA (cerebral vascular accident) (CMS/HCC) Heart valve problem History of fall Hyperlipidemia (CMS/HCC) Nicotine dependence Postoperative atrial fibrillation (CMS/HCC) Scalp pain Scalp wound Seizures (CMS/HCC) Syncope and collapse Past Surgical History: Procedure Laterality Date CARDIAC SURGERY MR ANGIOGRAM HEAD WO IV CONTRAST 04/27/2017 MR ANGIOGRAM HEAD WO IV CONTRAST 04/27/2017 MR ANGIOGRAM NECK WO IV CONTRAST 04/27/2017 MR ANGIOGRAM NECK WO IV CONTRAST 04/27/2017 Family History Problem Relation Name Age of Onset No Known Problems Mother No Known Problems Father Social History Tobacco Use Smoking status: Every Day Current packs/day: 2.00 Types: Cigarettes Smokeless tobacco: Never Substance Use Topics Alcohol use: Never ALLERGIES: Bee venom and Tuberculin, ppd REVIEW OF SYSTEMS: General: Appetite change: denies. Chills: denies. Fever: denies. Allergy/Immunology: Unusual rection to medications, food, animals or insects reaction: denies. Ophthalmologic: Visual acuity change: denies. ENT: Decreased hearing: denies. Endocrine: Weight loss: denies. Respiratory: Cough: denies. Wheezing: denies. Cardiovascular: Chest pain: denies. Palpitations: denies. Gastrointestinal: Abdominal pain: denies. Difficulty swallowing: denies Hematology: Bleeding problems: denies. Genitourinary: Painful urination: denies. Musculoskeletal: Joint pain: denies. Joint edema: denies. Skin: Rash: denies. Neurologic: Ataxia: denies, Tremor: denies. Psychiatric Anxiety: denies. Depression: denies. Insomnia: denies. Suicidal thoughts: denies. Also see HPI for elements of ROS documented therein and for details of positive findings, which shall supersede the foregoing. OBJECTIVE: Objective Vitals: 01/26/24 1434 BP: 110/70 Pulse: 53 SpO2: 97% Weight: 138 lb Height: 5' 8.5 Body mass index is 20.68 kg/m . No orders to display No visits with results within 2 Month(s) from this visit. Latest known visit with results is: No results found for any previous visit. Results Examination: General Exam: pleasant, well nourished, well developed, in no acute distress Head: normocephalic, atraumatic Eyes: extraocular movement intact (EOMI), pupils equal, round, reactive to light, upper eyelids normal , lower eyelids normal Ears: no obvious hearing deficit Nose: Nares patent Neck/Throat: neck supple, full range of motion Oral Cavity: mucosa moist Skin: warm and dry Heart: no murmurs, regular rate and rhythm, S1, S2 normal Lungs: clear to auscultation bilaterally, good air movement, no wheezes, rales, rhonci, speaks in full sentences Chest: normal shape and expansion Abdomen: bowel sounds present, soft, nontender, nondistended, no guarding or rigidity Extremities: no edema, no cyanosis Musculoskeletal: no swelling or deformity Neurologic: AAOx3, memory intact, fund of knowledge appropriate Naming and repetition intact, fluent language, follows 3-step commands Pupils equal and reactive EOM intact, no gaze preference or deviation, no nystagmus. Normal sensation in V1, V2, and V3 segments bilaterally No facial asymmetry, no nasolabial fold flattening Normal hearing to speech Normal palatal elevation, no uvular deviation Normal midline tongue protrusion 5/5 head turn and 5/5 shoulder shrug bilaterally 5/5 muscle power in bilateral shoulder abductors/adductors, elbow flexors/extensors, wrist flexors/extensors, finger abductors/adductors. 5/5 in bilateral hip flexors/extensors, knee flexors/extensors, ankle dorsiflexors and plantar flexors. Reflexes 2/4 throughout, bilateral flexor plantar response, no Blue's, no clonus Sensation intact to touch, pinprick, vibration, and temperature in all limbs No hemineglect, no extinction to double sided stimulation (visual & tactile) Romberg absent Coordination intact to finger to nose and heel to weber, no tremor, no dysmetria Normal stance, no truncal ataxia Normal gait; patient able to tip-toe, heel-walk Psych: pleasant, cooperative, good eye contact, speech clear, judgement and insight good ASSESSMENT/PLAN: Assessment & Plan 1. Tremors. The tremors are likely due to an injury to the red nucleus, possibly related to reduced blood flow during his open-heart surgery two years ago. Increasing the primidone dosage (currently 300 mg daily) is not expected to provide any benefit. A referral to [facility] for focused beam ultrasound or gamma knife. He will consider this option. A letter was provided, indicating that he is medically cleared to drive. 2. Seizure history. He has been seizure-free for over a year. He reports no nocturnal symptoms such as tongue biting, waking up with a sore tongue or cheek, or blood on the pillow. He is medically cleared to drive. Follow-up Return in 3 months for follow up. documented in this encounterGeneral [facility] [id number] Discharge summary Author Thai Nice [facility] May 23, 2023 8:20pm Note Date/Time May 23, 2023 7:21pm [facility] Medical Records Department [address] [place] [address] Emergency Department Summary 05/23/23 MR#: [id number] Acct: [id number] Name: RADHA BRENNAN Rep #:[id number] : 1955 67 From: Thai Nice DO PCP: Dr. Parish Graff DO Status:REG ER Location: ED HPI History of Present Illness Chief Complaint: Chest Pain Narrative Narrative: 67-year-old male presenting with chest pain. He has history of CAD, CABG, A-fib. On Eliquis, hypertension, tobacco abuse, hyperlipidemia. Patient states he started having chest pain which felt like sharp pain in the left upper chest wall which lasted about an hour from 4-5. Patient was given aspirin and took nitroglycerin. States his pain resolved when he came to the ER. He arrived by EMS. He states that when he was feeling the pain he had some lightheadedness and nausea and a little bit of dizziness. He was not significantly short of breath. He felt like he had a little bit of a tremor all day and does have an essential tremor at baseline. This is now resolved. No fevers at home. No cough. Patient feels at his baseline currently. States he sees cardiology at [facility] but also has been seen by Dr. Morin here at [facility]. He states that Dr. Morin did his cardiac stents. [facility] Medical History Abnormal electrocardiogram Alcohol use 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 Atrial septal aneurysm Cardiology follow-up encounter Chronic back pain Complex laceration of scalp CVA (cerebral vascular accident) Depression Excessive bleeding Fall from ladder Gastric reflux Heart valve problem High cholesterol History of echocardiogram History of heart attack History of left heart catheterization (LHC) (~05/27/21) Hyperlipidemia Hypertension Injury of head and neck Migraine headache Nicotine dependence Normal stress echocardiogram Parkinson's disease Postoperative atrial fibrillation Scalp pain Scalp wound Seizure Smoker Syncope and collapse Tremor Wears dentures Wears glasses Home Medications acetaminophen 500 mg capsule 1,000 mg (2 x 500 mg) PO Q6H PRN pain #120 caps 02/24/22 [Rx Last Taken Unknown] folic acid 1 mg tablet 1 mg PO DAILY supplement #90 tabs 03/30/22 [Rx Last Taken Unknown] magnesium oxide 400 mg (241.3 mg magnesium) tablet 400 mg PO DAILY supplement #90 tabs 03/30/22 [Rx Last Taken Unknown] ondansetron 4 mg disintegrating tablet 4 mg PO Q6H PRN nausea and vomiting #10 tabs 04/10/22 [Rx Last Taken Unknown] ascorbate calcium (vitamin C) 500 mg tablet 500 mg PO DAILY vitamin #90 tabs 06/16/22 [Rx Last Taken Unknown] aspirin 81 mg tablet,delayed release (Adult Aspirin Regimen) 81 mg PO DAILY heart health #90 tabs 06/16/22 [Rx Last Taken 12/17/22] ferrous sulfate 325 mg (65 mg iron) tablet (FeroSul) 325 mg PO DAILY supplement #90 tabs 06/16/22 [Rx Last Taken Unknown] multivitamin with folic acid 400 mcg tablet (Daily-Tin (with folic acid)) 1 tabPO DAILY vitamin #90 tabs 06/16/22 [Rx Last Taken Unknown] atorvastatin 40 mg tablet 40 mg PO QHS cholesterol #30 tabs 08/10/22 [Rx Last Taken Unknown] lamotrigine 100 mg tablet 100 mg PO BID seizures #60 tabs 09/09/22 [Rx Last Taken Unknown] primidone 50 mg tablet 100 mg (2 x 50 mg) PO TID tremor #180 tabs 09/09/22 [Rx Last Taken Unknown] levetiracetam 500 mg tablet 500 mg PO BID 30 days #60 tabs 11/02/22 [Rx Last Taken Unknown] clopidogrel 75 mg tablet (Plavix) 75 mg PO DAILY anti platelet #90 tabs 11/18/22[Rx Last Taken 12/17/22] front wheeled walker #1 ea 11/26/22 [Rx Last Taken Unknown] escitalopram oxalate 10 mg tablet (Lexapro) 10 mg PO DAILY #90 tabs 12/15/22 [Rx Last Taken Unknown] food supplemt, lactose-reduced (Ensure Original oral liquid) See Rx InstructionsPO .COMPLEX Protein calorie malnutrition #60 BOTTLES 12/16/22 [Rx Last Taken Unknown] thiamine HCl (vitamin B1) 100 mg tablet 100 mg PO BID supplement 12/22/22 [History Last Taken Unknown] Allergy/AdvReac Type Severity Reaction Status Date / Time bee venom protein (honey bee) Allergy Severe Anaphylaxis Verified 05/23/23 17:01 tuberculin, purified protein Allergy Severe Swelling Verified 05/23/23 17:01 deriva Family History Mother Myocardial infarction Brother Myocardial infarction Surgical History finger surgery History of cardiac catheterization History of coronary artery bypass surgery (~09/21/21) History of lumbar puncture (~04/2017) Hx of neck surgery lymph node resection S/P triple vessel bypass Stented coronary artery (10/06/17) Social History household members: family Smoking Status: Heavy Smoker (>10/day) Tobacco: How many years used: 61 Electronic Cigarette Use: not used second hand exposure: Yes alcohol intake: current alcohol intake frequency: a few times a month Alcohol type: hard liquor details: Patient reduced his alcohol intake when 'his lady passed in 2014' substance use type: does not use caffeine: Yes Type: carbonated beverages and coffee ROS ROS ED Constitutional Constitutional ED: Denies chills, fever(s) or sweats Eyes Eyes: Reports blurry vision; Denies change in vision ENT ENT ED: Denies rhinorrhea Cardiovascular Cardiovascular: Reports chest pain, palpitations and racing heartbeat Respiratory/Chest Respiratory/Chest: Denies cough, dyspnea or sputum Gastrointestinal Gastrointestinal: Denies abdominal pain, constipation, diarrhea, nausea or vomiting Genitourinary Genitourinary ED: Denies dysuria, hematuria or urinary frequency Musculoskeletal Musculoskeletal: Denies arthralgias, myalgias or neck pain Integumentary Denies abscess, Abrasions or rash Neurologic Neurologic: Denies headache(s), paresthesias or weakness Psychiatric Psychiatric: Denies anxiety, depression, suicidal ideation or suicidal thoughts Endocrine Endocrinology: Denies polydipsia or polyuria EXAM Physical Exam Const Vital Signs: 05/23/23 17:01 05/23/23 17:07 05/23/23 17:43 Temperature 98.2 F Temperature Source Temporal Pulse Rate 64 Respiratory Rate 15 Respiratory Pattern Normal Blood Pressure 102/59 L Blood Pressure Mean 73 Pulse Ox 98 Oxygen Delivery Method Room Air Room Air 05/23/23 18:25 05/23/23 18:30 05/23/23 18:40 Temperature Temperature Source Pulse Rate 54 L 52 L 55 L Respiratory Rate 16 16 17 Respiratory Pattern Blood Pressure 98/60 Blood Pressure Mean 72 Pulse Ox 96 96 97 Oxygen Delivery Method 05/23/23 18:45 05/23/23 18:50 05/23/23 19:00 Temperature Temperature Source Pulse Rate 55 L 48 L 52 L Respiratory Rate 9 L 11 L 17 Respiratory Pattern Blood Pressure 110/63 101/55 L Blood Pressure Mean 78 69 Pulse Ox 99 97 98 Oxygen Delivery Method Room Air Room Air 05/23/23 19:10 05/23/23 19:15 05/23/23 19:20 Temperature Temperature Source Pulse Rate 52 L 50 L 60 Respiratory Rate 16 16 18 Respiratory Pattern Blood Pressure 104/58 L Blood Pressure Mean 73 Pulse Ox 98 96 98 Oxygen Delivery Method 05/23/23 19:33 05/23/23 19:40 05/23/23 19:45 Temperature Temperature Source Pulse Rate 55 L 52 L 54 L Respiratory Rate 18 17 Respiratory Pattern Blood Pressure 110/68 Blood Pressure Mean 82 Pulse Ox 99 100 Oxygen Delivery Method Room Air 05/23/23 19:50 05/23/23 20:00 Temperature Temperature Source Pulse Rate 55 L 51 L Respiratory Rate 19 H 16 Respiratory Pattern Blood Pressure Blood Pressure Mean Pulse Ox 98 99 Oxygen Delivery Method Positive well nourished General Appearance ED: NAD; Negative for pallor HEENT Reports moist mucous membranes Eyes PERRL and EOMs intact bilaterally Neck no lymphadenopathy Resp normal respiratory effort and clear to auscultation bilaterally Auscultation: Negative for rales, rhonchi or wheezes Cardio regular rate and regular rhythm GI normal to inspection, nondistended, normoactive bowel sounds Back/Spine no CVA tenderness Extremity normal to inspection Neuro oriented x3 and CN's II-XII intact bilaterally Sensorium / Orientation: awake and alert Skin no rashes or lesions noted General Skin Exam: Negative for jaundice or pallor Heart Score History: Slightly/Non-Suspicious ECG: Nonspecific Repolarization Age: >/= 65 years Risk Factors: >/= 3 Risk Factors or History of CAD Score: 5 MDM MDM MDM Narrative Medical decision making narrative: Patient presenting with chest pain which he felt was sharp and stabbing prior toarrival. EKG by squad showed a flutter. He is now in normal sinus rhythm. EKGhere in the emergency room shows a normal sinus rhythm at a ventricular rate of 66 bpm without sign of ischemic change. Differential includes ACS, pneumonia, A-fib, a flutter, dehydration, anemia, electrolyte abnormalities, CHF. CBC willbe obtained to assess white blood cell count, hemoglobin, platelets. BMP to assess renal function, electrolytes, glucose. High-sensitivity troponin and BNPwill be obtained. Chest x-ray to rule out pneumonia or CHF. CBC shows normal white blood cell count 11.4. Hemoglobin 12.9. Platelets are 246. Creatinine normal at 0.99. Electrolytes normal. High-sensitivity troponin is 6. BNP 21.9. Patient currently pain-free. Will obtain a delta troponin. Patient is already given aspirin 324 mg and is pain-free. Delta troponin came back at 7 and therefore there is no significant interval change. Patient tells me that heis anticoagulated on Eliquis. His heart rate is generally controlled. He has had 2 normal troponins that he is pain-free. I suspect maybe he was in a tachycardic rhythm but he feels better now. He is on rate control and anticoagulated so I believe he safe to go home. Chest x-ray my interpretation shows no acute process. Radiologist interprets this as some possible left lowerlobe infiltrate however the patient has no cough, fever, chills, shortness of breath and his vital signs are all normal. At this point I feel the patient stable for discharge. Impression: 1 chest pain 2. Atrial flutter?resolved Lab Data Attestation: I reviewed the patient's lab results. Labs: Laboratory Results - last 24 hr 05/23/23 05/23/23 17:18 19:30 WBC 11.4 H RBC 3.87 L Hgb 12.9 L Hct 38.5 L MCV 99.5 H MCH 33.3 H MCHC 33.5 RDW Std Deviation 45.4 H RDW Coeff of Verito 12.5 Plt Count 246 MPV 10.7 Immature Gran % (Auto) 0.100 Neut % (Auto) 26.4 L Lymph % (Auto) 54.3 H Cook % (Auto) 10.4 H Eos % (Auto) 8.4 H Baso % (Auto) 0.4 Absolute Neuts (auto) 3.0 Absolute Lymphs (auto) 6.21 H Nucleated RBC % 0 Differential Comment Sodium 139 Potassium 3.9 Chloride 110 H Carbon Dioxide 28.0 Anion Gap 1 L BUN 14 Creatinine 0.99 Estim Creat Clear Calc 67.88 Est GFR (MDRD) Af Amer 96 Est GFR (MDRD) Non-Af 80 BUN/Creatinine Ratio 14.1 Glucose 86 Calcium 8.8 Troponin I High Sens 6 7 B-Natriuretic Peptide 21.9 Radiography Diagnostic Testing: Clinical Impression(s) from Imaging Studies Chest X-Ray 05/23/23 17:54 IMPRESSION: COPD. Possible left lower lobe infiltrate.. Electronically Signed: Prosper Lazar MD at 18:41 EST , Discharge Plan Triage Chief Complaint: Chest Pain ED Provider: Thai Nice Dx/Rx/DC Orders Clinical Impression: Chest wall pain Instructions: ED Atrial Flutter, ED Chest Pain, Uncertain Cause Prescriptions: No Action primidone 50 mg tablet 100 mg PO TID Qty: 180 5RF lamotrigine 100 mg tablet 100 mg PO BID Qty: 60 5RF ondansetron 4 mg tablet,disintegrating 4 mg PO Q6H PRN (Reason: nausea and vomiting) Qty: 10 0RF levetiracetam 500 mg Tablet 500 mg PO BID 30 Days Qty: 60 0RF thiamine HCl (vitamin B1) 100 mg tablet 100 mg PO BID acetaminophen 500 mg capsule 1,000 mg PO Q6H PRN (Reason: pain) Qty: 120 1RF Rx Instructions: 14 day #28 folic acid 1 mg tablet 1 mg PO DAILY Qty: 90 3RF magnesium oxide 400 mg (241.3 mg magnesium) tablet 400 mg PO DAILY Qty: 90 3RF ascorbate calcium (vitamin C) 500 mg tablet 500 mg PO DAILY Qty: 90 1RF aspirin [Adult Aspirin Regimen] 81 mg tablet,delayed release (DR/EC) 81 mg PO DAILY Qty: 90 3RF ferrous sulfate [FeroSul] 325 mg (65 mg iron) tablet 325 mg PO DAILY Qty: 90 3RF multivitamin with folic acid [Daily-Tin (with folic acid)] 400 mcg tablet 1 tab PO DAILY Qty: 90 3RF atorvastatin 40 mg tablet 40 mg PO QHS Qty: 30 12RF clopidogrel [Plavix] 75 mg tablet 75 mg PO DAILY Qty: 90 3RF (DME) front wheeled walker See Rx Instructions .Route .MEDSUPPLY Qty: 1 0RF Rx Instructions: As directed escitalopram oxalate [Lexapro] 10 mg tablet 10 mg PO DAILY Qty: 90 3RF Ensure Original Liquid See Rx Instructions PO .COMPLEX Qty: 60 5RF Rx Instructions: 1 can twice daily orally; Primary Care Provider: Parish Graff Referrals: Parish Graff DO [Primary Care Provider] - Disposition Disposition: Home, Self Care What to do if you have Problems For any increased pain, shortness of breath, bleeding, nausea or vomiting, chestpain, or any unexpected problems, contact your Primary Care Provider. Call [facility] ([phone]) or report to the closest Emergency Room. Call 911 if necessary. 05/23/232019 <Electronically signed by Thai Nice DO> Cosigner Signature (if applicable): CC: Dr. Parsih Graff DO ~ Signed [facility] Work Phone: [phone] Note ORIGINAL NM MYOCARDIAL SPECT STRESS/REST CLINICAL STATEMENT: syncope, known heart disease TECHNIQUE: Lexiscan dose:0.4 mg Radiopharmaceutical (stress): Tc-99m Sestamibi Dose:31.8 mCi Radiopharmaceutical (rest): Tc-99m Sestamibi Dose:10.3 mCi SPECT acquisition and processing Reconstruction and reorientation of SPECT images into short axis, vertical and horizontal long axisplanes Quantitative LVEF assessment COMPARISON:none REPORT: Post stress myocardial perfusion images showed moderate perfusion defect at inferior wall, mid basal inferolateral/inferoseptal chang Resting images showed similar perfusion Increased RV uptake was noted GI uptake artifact was ntoed at inferior wall LVEF 44% with focal wall motion abnormality anteroseptal and anterior chang and apex, reduced thickening at inferior wall TID 1.01 IMPRESSION: Suggestive apical infarct/hibernation; no perfusion miss match to suggest ischemia LVEF 44 % with focal wall motion abnormality anteroseptal and anterior chang and apex, reduced thickening at inferior wall Interpreted By: Amor Almaraz Preliminary Report By: Amor Almaraz Electronically Signed By: Amor Almaraz Dictated Date: 03/16/2023 4:43:01 PM Prelim Date: 03/16/2023 4:43:01 PM Sign Date: 03/16/2023 4:53:33 PM Ordering Provider:[facility]12-13-2023 Note * Exam Date Time Procedure Performing Provider Status 03/16/23 9:24 AM Echocardiogram, Adult (AOH) Auth (Verified) [facility] 12-07-2023 Note* Exam Date Time Procedure Performing Provider Status 03/10/23 10:22 AM VL Carotid US/Dopple r Complete AOH Auth (Verified) [facility] 09-22-2023 History and physical note Author Alex Mejia [facility] December 24, 2022 11:20am Note Date/Time December 21, 2022 10:32am [facility] Medical Records Department [address] [place] [address] History & Physical Exam 12/21/22 1028 MR#: [id number] Acct: [id number] Name: RADHA BRENNAN Rep #:[id number] : 1955 67 From: Alex Mejia DO PCP: Dr. Radha Quintero MD Status:[facility] Location: [address] [facility] General Date of Service: 12/24/22 HPI Narrative The patient is a 67-year-old male who initially presented to the outpatient pulmonary office on November 29, 2022 for the evaluation of a lung nodule. The patient was evaluated in the emergency department and underwent CT imaging of the chest, which demonstrated a 1.5 cm soft tissue nodular density in the left costophrenic angle. A follow-up PET scan was then completed on September 28, which demonstrated increased FDG concentration in the right paratracheal lymph node station with an SUV value of 9.5. The nodule noted in the left costophrenic angle was not PET avid. The patient has a known history of coronary artery disease status post CABG in September 2021. The patient also has a history of epilepsy, alcohol withdrawal seizures and chronic tobacco dependency. He has never previously been diagnosedwith COPD or asthma. He does have an approximate [id number]-gyac smoking history. In addition to his personal smoking history, the patient did grow up in a smoking household. The patient has never previously completed pulmonary function studies. He does not utilize any inhalers or supplemental oxygen at his baseline. He is currently followed by Dr. Olivas of neurology due to his history of seizures. 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 The patient is currently on Plavix. [facility] Medical History Abnormal electrocardiogram 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 Atrial septal aneurysm Chronic back pain Complex laceration of scalp CVA (cerebral vascular accident) Fall from ladder Heart valve problem History of left heart catheterization (LHC) (~05/27/21) Hyperlipidemia Nicotine dependence Postoperative atrial fibrillation Scalp pain Scalp wound Seizure Syncope and collapse Home Medications acetaminophen 500 mg capsule 1,000 mg (2 x 500 mg) PO Q6H PRN pain #120 caps 02/24/22 [Rx Last Taken Unknown] folic acid 1 mg tablet 1 mg PO DAILY supplement #90 tabs 03/30/22 [Rx Last Taken Unknown] magnesium oxide 400 mg (241.3 mg magnesium) tablet 400 mg PO DAILY supplement #90 tabs 03/30/22 [Rx Last Taken Unknown] ondansetron 4 mg disintegrating tablet 4 mg PO Q6H PRN nausea and vomiting #10 tabs 04/10/22 [Rx Last Taken Unknown] ascorbate calcium (vitamin C) 500 mg tablet 500 mg PO DAILY vitamin #90 tabs 06/16/22 [Rx Last Taken Unknown] aspirin 81 mg tablet,delayed release (Adult Aspirin Regimen) 81 mg PO DAILY heart health #90 tabs 06/16/22 [Rx Last Taken Unknown] ferrous sulfate 325 mg (65 mg iron) tablet (FeroSul) 325 mg PO DAILY supplement #90 tabs 06/16/22 [Rx Last Taken Unknown] multivitamin with folic acid 400 mcg tablet (Daily-Tin (with folic acid)) 1 tabPO DAILY vitamin #90 tabs 06/16/22 [Rx Last Taken Unknown] thiamine HCl (vitamin B1) 100 mg tablet 100 mg PO TID supplement #90 tabs 06/16/22 [Rx Last Taken Unknown] atorvastatin 40 mg tablet 40 mg PO QHS cholesterol #30 tabs 08/10/22 [Rx Last Taken Unknown] lamotrigine 100 mg tablet 100 mg PO BID seizures #60 tabs 09/09/22 [Rx Last Taken Unknown] primidone 50 mg tablet 100 mg (2 x 50 mg) PO TID tremor #180 tabs 09/09/22 [Rx Last Taken Unknown] levetiracetam 500 mg tablet 500 mg PO BID 30 days #60 tabs 11/02/22 [Rx Last Taken Unknown] amiodarone 200 mg tablet 100 mg (1/2 x 200 mg) PO DAILY heart #90 tabs 11/18/22 [Rx Last Taken Unknown] clopidogrel 75 mg tablet (Plavix) 75 mg PO DAILY anti platelet #90 tabs 11/18/22[Rx Last Taken Unknown] front wheeled walker #1 ea 11/26/22 [Rx Last Taken Unknown] escitalopram oxalate 10 mg tablet (Lexapro) 10 mg PO DAILY #90 tabs 12/15/22 [Rx Last Taken Unknown] food supplemt, lactose-reduced (Ensure Original oral liquid) See Rx InstructionsPO .COMPLEX Protein calorie malnutrition #60 BOTTLES 12/16/22 [Rx Last Taken Unknown] Allergy/AdvReac Type Severity Reaction Status Date / Time bee venom protein (honey bee) Allergy Severe Anaphylaxis Verified 12/09/22 20:09 tuberculin, purified protein Allergy Severe Swelling Verified 12/09/22 20:09 deriva Family History Mother Myocardial infarction Brother Myocardial infarction Surgical History finger surgery History of coronary artery bypass surgery (~09/21/21) History of lumbar puncture (~04/2017) lymph node resection S/P triple vessel bypass Stented coronary artery (10/06/17) Social History household members: family Smoking Status: Current every day smoker tobacco type: cigarettes Tobacco: How many years used: 61 Electronic Cigarette Use: not used second hand exposure: Yes alcohol intake: current alcohol intake frequency: a few times a month Alcohol type: hard liquor details: Patient reduced his alcohol intake when 'his lady passed in 2014' substance use type: does not use caffeine: Yes Type: carbonated beverages and coffee Physical Exam Const alert and no apparent distress General Appearance: cooperative HEENT normocephalic and head/scalp atraumatic Eyes PERRL and EOMs intact bilaterally Neck supple General: trachea midline Resp normal respiratory effort Auscultation: diminished lung sounds Cardio regular rate and regular rhythm GI normal to inspection, nondistended, normoactive bowel sounds Extremity no clubbing, cyanosis or edema Skin General Skin Exam: no breakdown Neuro CN's II-XII intact bilaterally and no focal motor deficits Psych cooperative and affect normal Assessment & Plan Assessment/Plan (1) Abnormal PET of right lung: PLAN: The patient was previously identified as having a lung nodule in the left costophrenic angle, which prompted a PET scan to be completed in September 2022. That imaging study demonstrated increased FDG uptake in the right distal paratracheal region. The patient has an extensive tobacco abuse history. Thesefindings could certainly represent an underlying malignancy. The patient was previously scheduled in our office at the end of October, but did not show up to that appointment. I did recommend that we proceed with EBUS facilitated transbronchial needle aspiration at this particular time. Risks and benefits ofthe proposed procedure was discussed with the patient at length. He is in agreement to proceed. 12/21/22 1032 <Electronically signed by Alex Mejia DO> Cosigner Signature (if applicable): CC: Dr. Alex Mejia DO; Dr. Radha Quintero MD~ Signed ADDENDUM by Dr. Alex Mejia DO on 12/24/22 at 1120 Addendum I have examined the patient and the H&P has been reviewed. There are no clinicalchanges since date of exam. 12/24/22 1120<Electronically signed by Alex Mejia DO> Cosigner Signature (if applicable): cc: Dr. Alex Mejia DO; Dr. Radha Quintero MD ~* Signed [facility] Work Phone: 1(508) 321-490109-22-2023 Procedure [facility] 12-09-2022 Discharge summary Author Álvaro Hsu [facility] December 09, 2022 11:23pm Note Date/Time December 09, 2022 11:17pm [facility] Medical Records Department [address] [place] [id number] Emergency Department Summary 12/09/22 MR#: [id number] Acct: [id number] Name: RADHA BRENANN Rep #:[id number] : 1955 67 From: Álvaro Hsu MD PCP: Dr. Radha Quintero MD Status:REG ER Location: ED HPI History of Present Illness Chief Complaint: Alt LOC Detail of Chief Complaint: Altered mental status, staring and abnormal movement upper extremities only Informant: spouse/S.O. Onset/Context/Timing Onset: Today Context: Sudden Onset Timing: Continuous Quality: Unresponsiveness Location: Presents from home Current Severity: On able to determine Maximum Severity: Unable to determine Worsened by: Unknown Relieved by: Nothing Associated Symptoms Associated Symptoms: Unable to determine Narrative Narrative: Is a 67-year-old male with history of generalized Seizures as well as partial complex focal seizures who is poorly his seizures. He was brought in because of altered mental status. He is unable to contribute to history and essentially nothing with physical exam as well. Person is with him states she puts out his meds and there is no concern for overmedication. Prior similar symptoms: Yes (Per person with him) Recent Illness/Hospitalization: Yes (He was last seen in the emergency room on November 10.) [facility] Medical History Abnormal electrocardiogram 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 Atrial septal aneurysm Chronic back pain Complex laceration of scalp CVA (cerebral vascular accident) Fall from ladder Heart valve problem History of left heart catheterization (LHC) (~05/27/21) Hyperlipidemia Nicotine dependence Postoperative atrial fibrillation Scalp pain Scalp wound Seizure Syncope and collapse Home Medications acetaminophen 500 mg capsule 1,000 mg (2 x 500 mg) PO Q6H PRN pain #120 caps 02/24/22 [Rx Last Taken Unknown] folic acid 1 mg tablet 1 mg PO DAILY supplement #90 tabs 03/30/22 [Rx Last Taken Unknown] magnesium oxide 400 mg (241.3 mg magnesium) tablet 400 mg PO DAILY supplement #90 tabs 03/30/22 [Rx Last Taken Unknown] ondansetron 4 mg disintegrating tablet 4 mg PO Q6H PRN nausea and vomiting #10 tabs 04/10/22 [Rx Last Taken Unknown] ascorbate calcium (vitamin C) 500 mg tablet 500 mg PO DAILY vitamin #90 tabs 06/16/22 [Rx Last Taken Unknown] aspirin 81 mg tablet,delayed release (Adult Aspirin Regimen) 81 mg PO DAILY heart health #90 tabs 06/16/22 [Rx Last Taken Unknown] ferrous sulfate 325 mg (65 mg iron) tablet (FeroSul) 325 mg PO DAILY supplement #90 tabs 06/16/22 [Rx Last Taken Unknown] multivitamin with folic acid 400 mcg tablet (Daily-Tin (with folic acid)) 1 tabPO DAILY vitamin #90 tabs 06/16/22 [Rx Last Taken Unknown] thiamine HCl (vitamin B1) 100 mg tablet 100 mg PO TID supplement #90 tabs 06/16/22 [Rx Last Taken Unknown] atorvastatin 40 mg tablet 40 mg PO QHS cholesterol #30 tabs 08/10/22 [Rx Last Taken Unknown] lamotrigine 100 mg tablet 100 mg PO BID seizures #60 tabs 09/09/22 [Rx Last Taken Unknown] primidone 50 mg tablet 100 mg (2 x 50 mg) PO TID tremor #180 tabs 09/09/22 [Rx Last Taken Unknown] levetiracetam 500 mg tablet 500 mg PO BID 30 days #60 tabs 11/02/22 [Rx Last Taken Unknown] amiodarone 200 mg tablet 100 mg (1/2 x 200 mg) PO DAILY heart #90 tabs 11/18/22 [Rx Last Taken Unknown] clopidogrel 75 mg tablet (Plavix) 75 mg PO DAILY anti platelet #90 tabs 11/18/22[Rx Last Taken Unknown] escitalopram oxalate 10 mg tablet (Lexapro) 10 mg PO DAILY #30 tabs 11/24/22 [Rx Last Taken Unknown] front wheeled walker #1 ea 11/26/22 [Rx Last Taken Unknown] Allergy/AdvReac Type Severity Reaction Status Date / Time bee venom protein (honey bee) Allergy Severe Anaphylaxis Verified 12/09/22 20:09 tuberculin, purified protein Allergy Severe Swelling Verified 12/09/22 20:09 deriva Family History Mother Myocardial infarction Brother Myocardial infarction Surgical History finger surgery History of coronary artery bypass surgery (~09/21/21) History of lumbar puncture (~04/2017) lymph node resection S/P triple vessel bypass Stented coronary artery (10/06/17) Social History household members: family Smoking Status: Current every day smoker tobacco type: cigarettes Tobacco: How many years used: 61 Electronic Cigarette Use: not used second hand exposure: Yes alcohol intake: current alcohol intake frequency: a few times a month Alcohol type: hard liquor details: Patient reduced his alcohol intake when 'his lady passed in 2014' substance use type: does not use caffeine: Yes Type: carbonated beverages and coffee ROS ROS ED Review of Systems ROS Unobtainable: due to mental status EXAM Physical Exam Const Vital Signs: 12/09/22 20:10 12/09/22 20:09 12/09/22 21:09 Temperature 98.4 F Temperature Source Temporal Pulse Rate 75 90 60 Respiratory Rate 16 17 Blood Pressure 136/76 H 137/89 H Blood Pressure Mean 96 105 Pulse Ox 98 95 Oxygen Delivery Method Room Air Room Air Positive well nourished and well developed Constitutional Narrative: Patient is staring straight up at the ceiling. His right upper extremity is held out in partial extension with tremorous activity. His left arm is raised above the bed with no abnormal motor activity. There is no abnormal motor activity of his lower extremities. General Appearance ED: well developed and NAD; Negative for cyanotic, diaphoretic or pallor HEENT Reports dry mucous membranes HEENT Narrative: There is temporal wasting. Eyes are sunken. Ears and TMs are normal. Nares patent. Mucosa slightly dry. Posterior pharynx unremarkable. Mouth ED: Yes dry mucous membranes Mouth: dry mucous membranes Eyes Eyes Narrative: Patient has a startle response to loud noise. Patient blinks with visual threat. Pupils are 2 to 3 mm in size. Pupils are reactive to light. Conjunctive is normal. General Eye ED: Negative for scleral icterus Neck no lymphadenopathy, supple and no JVD Neck Narrative: Trachea is midline there is no cervical lymphadenopathy. Chest Wall inspection of chest normal and palpation of chest normal Resp normal respiratory effort and clear to auscultation bilaterally Cardio regular rate, regular rhythm, S1 normal heart sound, S2 normal heart sound and no murmurs GI normal to inspection, nondistended, normoactive bowel sounds, non-tender, non-distended and no masses; Negative for hepatosplenomegaly Palpation: soft; Negative for mass Back/Spine Back/Spine Narrative: Inspection of the back appears normal. Extremity normal to inspection Extremity Narrative: There is no vascular Mise of upper or lower extremity. General Extremety ED: Negative for edema or tenderness General Extremity: Negative for edema Neuro No oriented x3 Sensorium / Orientation: Negative for alert Psych Psych Narrative: Unable to determine Skin no rashes or lesions noted and no wounds General Skin Exam: elasticity normal; Negative for jaundice or pallor MDM MDM MDM Narrative Medical decision making narrative: Patient was recently seen for seizure November. Neurology notes from September are read and there was mention of generalized and partial complex focal seizures. Most recent MRI was 2018. Most recent CAT scan was November 10. This reveals small vessel white matter disease. MRI that was performed 2018 revealedold right parietal infarct. This could be due to overmedication, infectious process, atypical seizure, conversion reaction. Work-up included blood work and urinalysis, tox screen andalcohol level. Since patient had a recent CAT scan with no Babinski or clonus doubt this to be due to an intracranial bleed and reason CT was not repeated. History & Record Review Discussion w/independent historian: Family Lab Data Attestation: I reviewed the patient's lab results. Lab results narrative: White count is slightly elevated with no shift. This is nonspecific. Basic metabolic panel is normal with a normal CO2 and anion gap. Liver enzymes. Urine is negative. Talk screen is positive for barbiturates which is due to theprimidone. Alcohol level is less than 3, nondetected. Labs: Laboratory Results - last 24 hr 12/09/22 12/09/22 20:15 20:36 WBC 12.9 H RBC 4.02 L Hgb 13.7 Hct 40.4 MCV 100.5 H MCH 34.1 H MCHC 33.9 RDW Std Deviation 45.9 H RDW Coeff of Verito 12.4 Plt Count 240 MPV 9.8 Immature Gran % (Auto) 0.200 Neut % (Auto) 45.6 L Lymph % (Auto) 40.6 Cook % (Auto) 7.8 Eos % (Auto) 5.3 H Baso % (Auto) 0.5 Absolute Neuts (auto) 5.9 Absolute Lymphs (auto) 5.24 H Nucleated RBC % 0 Differential Comment SCANNED Reactive Lymphocytes 1+ Sodium 136 Potassium 4.2 Chloride 103 Carbon Dioxide 30.0 Anion Gap 3 L BUN 14 Creatinine 1.05 Estim Creat Clear Calc 63.71 Est GFR (MDRD) Af Amer 90 Est GFR (MDRD) Non-Af 75 BUN/Creatinine Ratio 13.3 Glucose 89 Calcium 8.6 Total Bilirubin 0.30 AST 21 ALT 44 Alkaline Phosphatase 93 Total Protein 6.9 Albumin 3.7 Globulin 3.2 Albumin/Globulin Ratio 1.2 Urine Color Yellow Urine Clarity Clear Urine pH 6.0 Ur Specific Plato 1.015 Urine Protein Negative Urine Glucose (UA) Normal Urine Ketones Negative Urine Occult Blood 150 H Urine Nitrite Negative Urine Bilirubin Negative Urine Urobilinogen Normal Ur Leukocyte Esterase Negative Urine RBC 0-5 SEEN Urine WBC 0 SEEN Ur Squamous Epith Cells 0 SEEN Urine Bacteria 0 SEEN Urine Mucus 0 SEEN Urine Opiates Screen NEGATIVE Urine Methadone Screen NEGATIVE Ur Barbiturates Screen POSITIVE H Ur Phencyclidine Scrn NEGATIVE Ur Amphetamines Screen NEGATIVE MDMA (Ecstasy) Screen NEGATIVE U Benzodiazepines Scrn NEGATIVE Urine Cocaine Screen NEGATIVE U Cannabinoids Screen NEGATIVE Ur Drug Screen Comment Ethyl Alcohol < 3.0 Treatment and Re-Evaluation :: When patient was reevaluated at 2305 he was alert oriented back to baseline. Hehas a exam is nonfocal. Discharge Plan Triage Chief Complaint: Alt LOC ED Provider: Álvaro Hsu Dx/Rx/DC Orders Clinical Impression: Acute alteration in mental status, Hyperlipidemia, Essential tremor, Abnormal PET of right lung, History of seizure, History of cerebellar stroke, History of coronary artery disease, Adjustment reaction with anxiety and depression Instructions: ED ALOC Prescriptions: No Action primidone 50 mg tablet 100 mg PO TID Qty: 180 5RF lamotrigine 100 mg tablet 100 mg PO BID Qty: 60 5RF ondansetron 4 mg tablet,disintegrating 4 mg PO Q6H PRN (Reason: nausea and vomiting) Qty: 10 0RF levetiracetam 500 mg Tablet 500 mg PO BID 30 Days Qty: 60 0RF acetaminophen 500 mg capsule 1,000 mg PO Q6H PRN (Reason: pain) Qty: 120 1RF Rx Instructions: 14 day #28 folic acid 1 mg tablet 1 mg PO DAILY Qty: 90 3RF magnesium oxide 400 mg (241.3 mg magnesium) tablet 400 mg PO DAILY Qty: 90 3RF thiamine HCl (vitamin B1) 100 mg tablet 100 mg PO TID Qty: 90 1RF ascorbate calcium (vitamin C) 500 mg tablet 500 mg PO DAILY Qty: 90 1RF aspirin [Adult Aspirin Regimen] 81 mg tablet,delayed release (DR/EC) 81 mg PO DAILY Qty: 90 3RF ferrous sulfate [FeroSul] 325 mg (65 mg iron) tablet 325 mg PO DAILY Qty: 90 3RF multivitamin with folic acid [Daily-Tin (with folic acid)] 400 mcg tablet 1 tab PO DAILY Qty: 90 3RF atorvastatin 40 mg tablet 40 mg PO QHS Qty: 30 12RF amiodarone 200 mg tablet 100 mg PO DAILY Qty: 90 1RF clopidogrel [Plavix] 75 mg tablet 75 mg PO DAILY Qty: 90 3RF escitalopram oxalate [Lexapro] 10 mg tablet 10 mg PO DAILY Qty: 30 2RF (DME) front wheeled walker See Rx Instructions .Route .MEDSUPPLY Qty: 1 0RF Rx Instructions: As directed Primary Care Provider: Radha Quintero Referrals: Radha Quintero MD [Primary Care Provider] - 5-7 Days Disposition Disposition: Home, Self Care What to do if you have Problems For any increased pain, shortness of breath, bleeding, nausea or vomiting, chestpain, or any unexpected problems, contact your Primary Care Provider. Call [facility] ([phone]) or report to the closest Emergency Room. Call 911 if necessary. 12/09/222322 <Electronically signed by Álvaro Hsu MD> Cosigner Signature (if applicable): CC: Dr. Radha Quintero MD ~ Signed [facility] Work Phone: 1(970) 464-416308-01-2023 Discharge summary Author Elvi Layton [facility] November 02, 2022 1:41pm Note Date/Time November 02, 2022 1:3 4pm [facility] Medical Records Department [address] [place] [address] Discharge Summary 11/02/22 1329 MR#: [id number] Acct: [id number] Name: RADHA BRENNAN Rep #:[id number] : 1955 67 From: Elvi Layton MD PCP: Dr. Radha Quintero MD Status:ADM KEYANNA Location: [place] [address] Providers Date of Admission: 11/01/22 Date of Discharge: 11/02/22 Primary Care Physician: Dr. Radha Quintero MD Reason For Visit: SEIZURE DISORDER Diagnosis Discharge Diagnosis (1) Seizures: Status: Acute Code(s): R56.9 - Unspecified convulsions (2) History of coronary artery bypass surgery: Status: Acute Code(s): Z95.1 - Presence of aortocoronary bypass graft (3) Stented coronary artery: Status: Chronic Code(s): Z95.5 - Presence of coronary angioplasty implant and graft (4) Pulmonary nodule: Status: Acute Code(s): R91.1 - Solitary pulmonary nodule Plan #epilepsy w/ recurrence of seizures #Hx CAD w/ cabg #11 x 13 mm noncalcified pulmonary nodule at the LEFT lung base. Findings are stable. Medications at Discharge Home Medications acetaminophen 500 mg capsule 1,000 mg (2 x 500 mg) PO Q6H PRN pain #120 caps 02/24/22 folic acid 1 mg tablet 1 mg PO DAILY #90 tabs 03/30/22 magnesium oxide 400 mg (241.3 mg magnesium) tablet 400 mg PO DAILY #90 tabs 03/30/22 ondansetron 4 mg disintegrating tablet 4 mg PO Q6H PRN nausea and vomiting #10 tabs 04/10/22 ascorbate calcium (vitamin C) 500 mg tablet 500 mg PO DAILY #90 tabs 06/16/22 aspirin 81 mg tablet,delayed release (Adult Aspirin Regimen) 81 mg PO DAILY #90 tabs 06/16/22 clopidogrel 75 mg tablet (Plavix) 75 mg PO DAILY #90 tabs 06/16/22 ferrous sulfate 325 mg (65 mg iron) tablet (FeroSul) 325 mg PO DAILY #90 tabs 06/16/22 multivitamin with folic acid 400 mcg tablet (Daily-Tin (with folic acid)) 1 tabPO DAILY #90 tabs 06/16/22 thiamine HCl (vitamin B1) 100 mg tablet 100 mg PO TID #90 tabs 06/16/22 amiodarone 200 mg tablet 100 mg (1/2 x 200 mg) PO DAILY #90 tabs 06/18/22 atorvastatin 40 mg tablet 40 mg PO QHS #30 tabs 08/10/22 lamotrigine 100 mg tablet 100 mg PO BID #60 tabs 09/09/22 primidone 50 mg tablet 100 mg (2 x 50 mg) PO TID tremor #180 tabs 09/09/22 Hospital Course Summary of Care Provided Minutes Spent on Discharge: 32 Hospital Course: Patient is a 67-year-old male with history of coronary artery disease with bypass history, hypertension, seizure disorder on Lamictal, essential tremor [facility] to [facility] 11/01/2022 with recurrence of tonic-clonic seizure after stress at home. He was given midazolam and Ativan for the seizures and was somewhat tired and confused, loaded with Keppra and admitted. Patient improved and was awake and alert. Neurology consulted and recommended discharge on home medications with addition of Keppra 500 twice daily and following up with outpatient neurologist whom he is already established with. Nofurther complaints at time of discharge and patient comfortable going home. Discharge instructions as follows: DISCHARGE INSTRUCTIONS PLEASE READ *Please take this with you to your next doctors appointment* -You were found to have a lung nodule in the left lung base, it is recommended that you discuss this with your primary care physician as you may need follow upimaging -Please follow-up with your neurologist upon discharge. Please call their office to schedule hospital follow-up appointment upon discharge. -You will be discharged on Keppra 500mg twice daily, please take this until you follow up with Dr. Sandhu. Or if any concerns prior to follow up please contact his office. SEIZURE DISCHARGE INSTRUCTIONS: - Seizures are unpredictable. Do not do anything that might cause danger to youor other people if you have another seizure. Do not drive, ride a bike, climb ladders/heights, hold a baby or operate dangerous equipment etc. - Do not drive until you are cleared to do so by your doctor -Avoid unsupervised activities that may pose danger of sudden loss of consciousness including bathing, swimming alone, working at heights, and/or operating heavy machinery. - Do not take a bath alone. Take shower instead - Do not spend time alone until your healthcare provider says that you are no longer in danger of having another seizure - Tell your close friends and relatives about your seizure. Teach them what to do for you if it happens again - Take your medicine as prescribed, missing doses increases your risk of having repeat seizure -Follow regular sleep schedule such that you get at least 60 hours of restful sleep every night. This is especially important when you are sick or have a cold, flu, or another type of infection - Do not drink alcoholic beverages until your doctor says it is okay. Do not ever use recreational drugs -For future seizures if you are alone: If you feel a seizure coming on, lie downon a bed or the floor or with something soft under your head and lie on your left side, not in your back. Also make sure you are not near any objects that may injure you during seizure. Call 911 if you can. - For future seizures if someone is with you: Depression should help you get into a safe position and then they should call 911. They should not try to force anything into your mouth once the seizure begins. They should not put their fingers in your mouth. -After seizure you may be drowsy or confused. That person should stay with you until you are fully awake. That person should not offer you anything to eat or drink during that time. Call 911 or go to the emergency department. -Call your healthcare provider right away if you have any of these: Another seizure, a fever of 100.4 ?F or higher, abnormal irritability, drowsiness, or confusion, head or neck pain that gets worse -Please call your primary care provider's office upon discharge to schedule a hospital follow up within 1 week. -For any concerning signs or symptoms please call 911 or proceed to the nearest emergency department Physical Exam Narrative General: Alert, oriented, no apparent distress HEENT: Atraumatic, normocephalic Eyes: Anicteric, normal conjunctiva, extraocular movements grossly intact Neck: Supple Respiratory: Clear to auscultation bilaterally, normal respiratory effort Cardiovascular: Regular rate and rhythm GI: Soft, nontender, nondistended Extremities: No edema Musculoskeletal: Moving all extremities Neuro: No overt focal neurological deficits Skin: No rashes appreciated Psych: Cooperative Weight / BMI Weight Weight: 60.1 kg Body Mass Index (BMI) 22.1 ABG / Lab / Microbiology Data 11/01/22 21:30 11/02/22 05:50 Laboratory: Laboratory Results - last 24 hr 11/01/22 21:30: WBC 11.9 H, RBC 4.09 L, Hgb 13.7, Hct 42.6, MCV 104.2 H, MCH 33.5 H, MCHC 32.2, RDW Std Deviation 49.4 H, RDW Coeff of Verito 12.8, Plt Count 234, MPV 9.9, Immature Gran % (Auto) 0.200, Neut % (Auto) 46.8 L, Lymph % (Auto)40.6, Cook % (Auto) 5.3, Eos % (Auto) 6.5 H, Baso % (Auto) 0.6, Absolute Neuts (auto) 5.6, Absolute Lymphs (auto) 4.85 H, Nucleated RBC % 0, Atypical Lymphocytes 2+, Platelet Estimate ADEQUATE, RBC Morphology N CHROM, Anisocytosis1+, Macrocytosis 1+, Ovalocytes RARE, Sodium 135 L, Potassium 4.5, Chloride 105,Carbon Dioxide 25.0, Anion Gap 5, BUN 15, Creatinine 1.00, Estim Creat Clear Calc 67.90, Est GFR (MDRD) Af Amer 96, Est GFR (MDRD) Non-Af 79, BUN/Creatinine Ratio 15.0, Glucose 77, Calcium 8.4 L, Total Bilirubin 0.50, AST 29, ALT 27, Alkaline Phosphatase 79, Troponin I High Sens 7, Total Protein 6.6, Albumin 3.3,Globulin 3.3, Albumin/Globulin Ratio 1.0, Lipase 14 11/01/22 22:20: Lactic Acid 1.1 11/02/22 05:50: Sodium 139, Potassium 4.2, Chloride 110 H, Carbon Dioxide 29.0, Anion Gap 0 L, BUN 12, Creatinine 0.92, Estim Creat Clear Calc 65.33, Est GFR (MDRD) Af Amer 105, Est GFR (MDRD) Non-Af 87, BUN/Creatinine Ratio 13.0, [id number], Calcium 8.2 L 11/02/22 08:30: Urine Color Yellow, Urine Clarity Clear, Urine pH 8.0, Ur Specific Plato 1.010, Urine Protein Negative, Urine Glucose (UA) Normal, UrineKetones Negative, Urine Occult Blood 10 H, Urine Nitrite Negative, Urine Bilirubin Negative, Urine Urobilinogen Normal, Ur Leukocyte Esterase Negative, Urine RBC 0 SEEN, Urine WBC 0 SEEN, Ur Squamous Epith Cells 0 SEEN, Urine Bacteria 0 SEEN, Urine Mucus 0 SEEN, Urine Opiates Screen NEGATIVE, Urine Methadone Screen NEGATIVE, Ur Barbiturates Screen POSITIVE H, Ur Phencyclidine Scrn NEGATIVE, Ur Amphetamines Screen NEGATIVE, MDMA (Ecstasy) Screen NEGATIVE, U Benzodiazepines Scrn POSITIVE H, Urine Cocaine Screen NEGATIVE, U Cannabinoids Screen NEGATIVE, Ur Drug Screen Comment Radiography Diagnostic Testing: Radiology Impression Brain CT 11/01/22 21:43 IMPRESSION: 1. Stable exam. 2. Encephalomalacic change and chronic gliosis in the RIGHT hemisphere localized within the RIGHT inferior parietal lobule, RIGHT temporal lobe and RIGHT occipital lobe without change. 3. No intracranial mass, hemorrhage or acute territorial infarct. 4. Chronic ethmoid sinus disease. Electronically Signed: Juan R George MD at 22:40 EDT , Abdomen/Pelvis CT 11/01/22 21:44 IMPRESSION: 1. Stable exam. 2. 11 x 13 mm noncalcified pulmonary nodule at the LEFT lung base. Findings are stable. Consider follow-up based on included recommendations. 3. Stable borderline hepatomegaly. No intrahepatic masses or ductal dilatation. 4. No evidence cholelithiasis or biliary ductal dilatation. 5. No evidence of renal calcifications or obstructive uropathy. 6. No masses bowel obstruction abscess free fluid or free air. Moderate stool burden is noted. 7. Diffuse cachexia again noted. Reference recommendations for pulmonary nodule follow-up: Fleischner Report Guidelines 2017 Evelia et al, Radiology 2017: https://pubs.rsna.org/doi/pdf/10.1148/radiol.4190541081 Nodule size: <6 mm SOLITARY low-risk: no follow-up needed high-risk: optional CT at 12 months MULTIPLE low-risk: no follow-up needed high-risk: optional CT at 12 months -- Nodule size: 6-8 mm SOLITARY low-risk: follow-up at 6-12 months, then consider further follow-up at 18-24 months high-risk: initial follow-up CT at 6-12 months and then at 18-24 months if no change MULTIPLE low-risk: follow-up CT at 3-6 months, then consider further follow-up at 18-24 months high-risk: initial follow-up CT at 3-6 months and then at 18-24 months ----- - Nodule size: >8 mm SOLITARY either low or high-risk patients consider follow-up CT at 3 months, and/or CT-PET, and/or biopsy MULTIPLE low-risk: follow-up CT at 3-6 months, then consider further follow-up at 18-24 months high-risk: initial follow-up CT at 3-6 months and then at 18-24 months Electronically Signed: Juan R George MD at 23:13 EDT , D/C Instructions Discharge Diet: No restrictions Meaningful Use Info Meaningful Use Diagnoses (Choose all that apply): None applicable Discharge Plan Admission Admit Date/Time: 11/01/22 23:51 Primary Reason for Your Visit: Seizure Attending Provider: Elvi Layton Primary Care Provider: Radha Quintero Consulting Providers: Zaki iVgil Instructions Patient Instructions: Epilepsy: Safety During a Seizure, Living Well with Epilepsy Additional Instructions / Restrictions: DISCHARGE INSTRUCTIONS PLEASE READ *Please take this with you to your next doctors appointment* -You were found to have a lung nodule in the left lung base, it is recommended that you discuss this with your primary care physician as you may need follow upimaging -Please follow-up with your neurologist upon discharge. Please call their office to schedule hospital follow-up appointment upon discharge. -You will be discharged on Keppra 500mg twice daily, please take this until you follow up with Dr. Sandhu. Or if any concerns prior to follow up please contact his office. SEIZURE DISCHARGE INSTRUCTIONS: - Seizures are unpredictable. Do not do anything that might cause danger to youor other people if you have another seizure. Do not drive, ride a bike, climb ladders/heights, hold a baby or operate dangerous equipment etc. - Do not drive until you are cleared to do so by your doctor -Avoid unsupervised activities that may pose danger of sudden loss of consciousness including bathing, swimming alone, working at heights, and/or operating heavy machinery. - Do not take a bath alone. Take shower instead - Do not spend time alone until your healthcare provider says that you are no longer in danger of having another seizure - Tell your close friends and relatives about your seizure. Teach them what to do for you if it happens again - Take your medicine as prescribed, missing doses increases your risk of having repeat seizure -Follow regular sleep schedule such that you get at least 60 hours of restful sleep every night. This is especially important when you are sick or have a cold, flu, or another type of infection - Do not drink alcoholic beverages until your doctor says it is okay. Do not ever use recreational drugs -For future seizures if you are alone: If you feel a seizure coming on, lie downon a bed or the floor or with something soft under your head and lie on your left side, not in your back. Also make sure you are not near any objects that may injure you during seizure. Call 911 if you can. - For future seizures if someone is with you: Depression should help you get into a safe position and then they should call 911. They should not try to force anything into your mouth once the seizure begins. They should not put their fingers in your mouth. -After seizure you may be drowsy or confused. That person should stay with you until you are fully awake. That person should not offer you anything to eat or drink during that time. Call 911 or go to the emergency department. -Call your healthcare provider right away if you have any of these: Another seizure, a fever of 100.4 ?F or higher, abnormal irritability, drowsiness, or confusion, head or neck pain that gets worse -Please call your primary care provider's office upon discharge to schedule a hospital follow up within 1 week. -For any concerning signs or symptoms please call 911 or proceed to the nearest emergency department Discharge Orders/Prescriptions Prescriptions: Continued primidone 50 mg tablet 100 mg PO TID Qty: 180 5RF lamotrigine 100 mg tablet 100 mg PO BID Qty: 60 5RF ondansetron 4 mg tablet,disintegrating 4 mg PO Q6H PRN (Reason: nausea and vomiting) Qty: 10 0RF acetaminophen 500 mg capsule 1,000 mg PO Q6H PRN (Reason: pain) Qty: 120 1RF Rx Instructions: 14 day #28 folic acid 1 mg tablet 1 mg PO DAILY Qty: 90 3RF magnesium oxide 400 mg (241.3 mg magnesium) tablet 400 mg PO DAILY Qty: 90 3RF thiamine HCl (vitamin B1) 100 mg tablet 100 mg PO TID Qty: 90 1RF ascorbate calcium (vitamin C) 500 mg tablet 500 mg PO DAILY Qty: 90 1RF aspirin [Adult Aspirin Regimen] 81 mg tablet,delayed release (DR/EC) 81 mg PO DAILY Qty: 90 3RF clopidogrel [Plavix] 75 mg tablet 75 mg PO DAILY Qty: 90 3RF ferrous sulfate [FeroSul] 325 mg (65 mg iron) tablet 325 mg PO DAILY Qty: 90 3RF multivitamin with folic acid [Daily-Tin (with folic acid)] 400 mcg tablet 1 tab PO DAILY Qty: 90 3RF amiodarone 200 mg tablet 100 mg PO DAILY Qty: 90 1RF Rx Instructions: take 200 mg daily for 5 days and 1/2 tablet there after atorvastatin 40 mg tablet 40 mg PO QHS Qty: 30 12RF Referrals / Follow Up: Radha Quintero MD [Primary Care Provider] - Within 1 Week Kim Sandhu DO [Non-Staff] - Within 2 Weeks ( -Please follow-up with neurology upon discharge. Please call your neurologist office to schedule hospital follow-up appointment upon discharge.) Charges/Coding Visit Charges Inpatient E&M: 15280 Disch Hosp >30min 11/02/22 1339 <Electronically signed by Elvi Layton MD> Cosigner Signature (if applicable): CC: Dr. Radha Quintero MD; Dr. Evli Layton MD; Dr. Kim Sandhu DO~ Signed ADDENDUM by Dr. Elvi Layton MD on 11/02/22 at 1341 Addendum 11/02/22 1341<Electronically signed by Elvi Layton MD> Cosigner Signature (if applicable): cc: Dr. Radha Quintero MD; Dr. Elvi Layton MD; Dr. Kim Sandhu DO ~* Signed [facility] Work Phone: 1(137) 165-482508-01-2023 Discharge summary Author Elvi Layton [facility] November 02, 2022 1:40pm Note Date/Time November 02, 2022 1:2 8pm [facility] Medical Records Department [address] [place] [id number] Instructions for Home/Discharge Instructions 11/02/22 1327 MR#: [id number] Acct: [id number] Name: RADHA BRENNAN Rep #:[id number] : 1955 67 From: Elvi Layton MD PCP: Dr. Radha Quintero MD Status:ADM KEYANNA Discharge Instructions Diet Discharge Diet: No restrictions Activity Discharge Activity: - (SEIZURE DISCHARGE INSTRUCTIONS:- Seizures are unpredictable. Do not do anything that might cause danger to you or other people if you have another seizure. Do not drive, ride a bike, climb ladders/heights, hold a baby or operate dangerous equipment etc.- Do notdrive until you are cleared ) Follow Up Care Test Results: Test results from this visit will be discussed in further detail at your follow- up appointment, if applicable. Discharge Plan Admission Admit Date/Time: 11/01/22 23:51 Primary Reason for Your Visit: Seizure Attending Provider: Elvi Layton Primary Care Provider: Radha Quintero Consulting Providers: Zaki Vigil Instructions Patient Instructions: Epilepsy: Safety During a Seizure, Living Well with Epilepsy Additional Instructions / Restrictions: DISCHARGE INSTRUCTIONS PLEASE READ *Please take this with you to your next doctors appointment* -You were found to have a lung nodule in the left lung base, it is recommended that you discuss this with your primary care physician as you may need follow upimaging -Please follow-up with your neurologist upon discharge. Please call their office to schedule hospital follow-up appointment upon discharge. -You will be discharged on Keppra 500mg twice daily, please take this until you follow up with Dr. Sandhu. Or if any concerns prior to follow up please contact his office. SEIZURE DISCHARGE INSTRUCTIONS: - Seizures are unpredictable. Do not do anything that might cause danger to youor other people if you have another seizure. Do not drive, ride a bike, climb ladders/heights, hold a baby or operate dangerous equipment etc. - Do not drive until you are cleared to do so by your doctor -Avoid unsupervised activities that may pose danger of sudden loss of consciousness including bathing, swimming alone, working at heights, and/or operating heavy machinery. - Do not take a bath alone. Take shower instead - Do not spend time alone until your healthcare provider says that you are no longer in danger of having another seizure - Tell your close friends and relatives about your seizure. Teach them what to do for you if it happens again - Take your medicine as prescribed, missing doses increases your risk of having repeat seizure -Follow regular sleep schedule such that you get at least 60 hours of restful sleep every night. This is especially important when you are sick or have a cold, flu, or another type of infection - Do not drink alcoholic beverages until your doctor says it is okay. Do not ever use recreational drugs -For future seizures if you are alone: If you feel a seizure coming on, lie downon a bed or the floor or with something soft under your head and lie on your left side, not in your back. Also make sure you are not near any objects that may injure you during seizure. Call 911 if you can. - For future seizures if someone is with you: Depression should help you get into a safe position and then they should call 911. They should not try to force anything into your mouth once the seizure begins. They should not put their fingers in your mouth. -After seizure you may be drowsy or confused. That person should stay with you until you are fully awake. That person should not offer you anything to eat or drink during that time. Call 911 or go to the emergency department. -Call your healthcare provider right away if you have any of these: Another seizure, a fever of 100.4 ?F or higher, abnormal irritability, drowsiness, or confusion, head or neck pain that gets worse -Please call your primary care provider's office upon discharge to schedule a hospital follow up within 1 week. -For any concerning signs or symptoms please call 911 or proceed to the nearest emergency department Discharge Orders/Prescriptions Prescriptions: New levetiracetam 500 mg Tablet 500 mg PO BID 30 Days Qty: 60 0RF Continued primidone 50 mg tablet 100 mg PO TID Qty: 180 5RF lamotrigine 100 mg tablet 100 mg PO BID Qty: 60 5RF ondansetron 4 mg tablet,disintegrating 4 mg PO Q6H PRN (Reason: nausea and vomiting) Qty: 10 0RF acetaminophen 500 mg capsule 1,000 mg PO Q6H PRN (Reason: pain) Qty: 120 1RF Rx Instructions: 14 day #28 folic acid 1 mg tablet 1 mg PO DAILY Qty: 90 3RF magnesium oxide 400 mg (241.3 mg magnesium) tablet 400 mg PO DAILY Qty: 90 3RF thiamine HCl (vitamin B1) 100 mg tablet 100 mg PO TID Qty: 90 1RF ascorbate calcium (vitamin C) 500 mg tablet 500 mg PO DAILY Qty: 90 1RF aspirin [Adult Aspirin Regimen] 81 mg tablet,delayed release (DR/EC) 81 mg PO DAILY Qty: 90 3RF clopidogrel [Plavix] 75 mg tablet 75 mg PO DAILY Qty: 90 3RF ferrous sulfate [FeroSul] 325 mg (65 mg iron) tablet 325 mg PO DAILY Qty: 90 3RF multivitamin with folic acid [Daily-Tin (with folic acid)] 400 mcg tablet 1 tab PO DAILY Qty: 90 3RF amiodarone 200 mg tablet 100 mg PO DAILY Qty: 90 1RF Rx Instructions: take 200 mg daily for 5 days and 1/2 tablet there after atorvastatin 40 mg tablet 40 mg PO QHS Qty: 30 12RF Referrals / Follow Up: Radha Quintero MD [Primary Care Provider] - Within 1 Week Kim Sandhu DO [Non-Staff] - Within 2 Weeks ( -Please follow-up with neurology upon discharge. Please call your neurologist office to schedule hospital follow-up appointment upon discharge.) Disposition Disposition (needs filled in before D/C Order can be placed): Home, Self Care 11/02/22 1340<Electronically signed by Elvi Layton MD>Elvi Layton MD CC: Dr. Radha Quintero MD; Dr. Zaki Vigil MD ~ Signed [facility] Work Phone: [phone]) 430-406308-01-2023 Discharge summary Author Brennan Styles [facility] November 02, 2022 2:02am Note Date/Time November 01, 2022 9:48 pm [facility] Medical Records Department [address] [place] [id number] Emergency Department Summary 11/01/22 MR#: [id number] Acct: [id number] Name: RADHA BRENNAN Rep #:[id number] : 1955 67 From: Brennan Styles MD PCP: Dr. Radha Quintero MD Status:ADM KEYANNA Location: [address] History of Present Illness Chief Complaint: Seizure Narrative Narrative: History provided by family, it is limited from the patient due to the level of consciousness. He has a history of epilepsy he is on lamotrigine and follows with Dr. Sandhu at neuroscience in [place] but has not seen him in a little while. He had a second seizure in the last month which is unusual usually has 1 every couple of months or so. He was having emotional distress today when family started talking him about his who from cancer, couple hours later he was sitting at the table and started having a full body tonic-clonic seizure with altered level of consciousness during this, family help move him to a couchso he would not fall and injure himself, and seizure activity proceeded for at least 15 minutes, family states that is when EMS showed up and took him to the ambulance, upon bringing him here he was postictal after receiving an injection of midazolam. Family states he is on lamotrigine for his seizure activity and has been compliant with that. No recent illness that they know of. [facility] Medical History Abnormal electrocardiogram 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 Atrial septal aneurysm Chronic back pain Complex laceration of scalp CVA (cerebral vascular accident) Fall from ladder Heart valve problem History of left heart catheterization (LHC) (~05/27/21) Hyperlipidemia Nicotine dependence Postoperative atrial fibrillation Scalp pain Scalp wound Seizure Syncope and collapse Home Medications acetaminophen 500 mg capsule 1,000 mg (2 x 500 mg) PO Q6H PRN pain #120 caps 02/24/22 [Rx Last Taken Unknown] folic acid 1 mg tablet 1 mg PO DAILY #90 tabs 03/30/22 [Rx Last Taken Unknown] magnesium oxide 400 mg (241.3 mg magnesium) tablet 400 mg PO DAILY #90 tabs 03/30/22 [Rx Last Taken Unknown] ondansetron 4 mg disintegrating tablet 4 mg PO Q6H PRN nausea and vomiting #10 tabs 04/10/22 [Rx Last Taken Unknown] ascorbate calcium (vitamin C) 500 mg tablet 500 mg PO DAILY #90 tabs 06/16/22 [Rx Last Taken Unknown] aspirin 81 mg tablet,delayed release (Adult Aspirin Regimen) 81 mg PO DAILY #90 tabs 06/16/22 [Rx Last Taken Unknown] clopidogrel 75 mg tablet (Plavix) 75 mg PO DAILY #90 tabs 06/16/22 [Rx Last Taken Unknown] ferrous sulfate 325 mg (65 mg iron) tablet (FeroSul) 325 mg PO DAILY #90 tabs 06/16/22 [Rx Last Taken Unknown] multivitamin with folic acid 400 mcg tablet (Daily-Tin (with folic acid)) 1 tabPO DAILY #90 tabs 06/16/22 [Rx Last Taken Unknown] thiamine HCl (vitamin B1) 100 mg tablet 100 mg PO TID #90 tabs 06/16/22 [Rx Last Taken Unknown] amiodarone 200 mg tablet 100 mg (1/2 x 200 mg) PO DAILY #90 tabs 06/18/22 [Rx Last Taken Unknown] atorvastatin 40 mg tablet 40 mg PO QHS #30 tabs 08/10/22 [Rx Last Taken Unknown] lamotrigine 100 mg tablet 100 mg PO BID #60 tabs 09/09/22 [Rx Last Taken Unknown] primidone 50 mg tablet 100 mg (2 x 50 mg) PO TID tremor #180 tabs 09/09/22 [Rx Last Taken Unknown] Allergy/AdvReac Type Severity Reaction Status Date / Time bee venom protein (honey bee) Allergy Severe Anaphylaxis Verified 09/09/22 20:14 tuberculin, purified protein Allergy Severe Swelling Verified 09/09/22 20:14 deriva Family History Mother Myocardial infarction Brother Myocardial infarction Surgical History finger surgery History of coronary artery bypass surgery (~09/21/21) History of lumbar puncture (~04/2017) lymph node resection S/P triple vessel bypass Stented coronary artery (10/06/17) Social History household members: family Smoking Status: Current every day smoker tobacco type: cigarettes Tobacco: How many years used: 61 Electronic Cigarette Use: not used second hand exposure: Yes alcohol intake: current alcohol intake frequency: a few times a month Alcohol type: hard liquor details: Patient reduced his alcohol intake when 'his lady passed in 2014' substance use type: does not use caffeine: Yes Type: carbonated beverages and coffee ROS ROS ED Review of Systems ROS Unobtainable: due to mental status EXAM Physical Exam Const Vital Signs: 11/01/22 21:07 11/01/22 21:50 11/01/22 23:15 Temperature 97.2 F L Temperature Source Temporal Pulse Rate 65 60 58 L Respiratory Rate 15 18 16 Blood Pressure 107/68 111/72 109/70 Blood Pressure Mean 81 85 83 Pulse Ox 98 100 97 Oxygen Delivery Method Room Air Nasal Cannula Room Air Oxygen Flow Rate (L/min) 2 Positive well nourished and well developed Constitutional Narrative: Lethargic General Appearance ED: well developed HEENT Reports moist mucous membranes normocephalic and atraumatic Eyes PERRL and EOMs intact bilaterally Neck full ROM and supple Resp normal respiratory effort and clear to auscultation bilaterally Cardio regular rate, regular rhythm and no murmurs GI non-distended GI Narrative: Tender epigastrium with rebound tenderness, there is a small incisional ventral hernia at this location which is only present when the patient flexes his abdominal musculature. No other areas of tenderness. No pulsatile mass. Auscultation: normoactive bowel sounds Palpation: soft Back/Spine no CVA tenderness General Back: other FROM Extremity normal to inspection General Extremety ED: Negative for edema, pulses abnormal or tenderness General Extremity: Negative for edema or pulses abnormal Neuro CN's II-XII intact bilaterally Neuro Narrative: Lethargic/stuporous. Opens eyes to voice, mumbles, does not follow commands. [place] Coma Scale: document GCS findings To Voice Withdraws to Pain Incomprehensible 9 Psych Psych Narrative: Limited exam Skin no rashes or lesions noted and no wounds MDM MDM MDM Narrative Medical decision making narrative: Shortly after I left the room, patient started having a tonic-clonic generalizedseizure. Nurses alerted me, I asked him to get Ativan 1 mg, I went back into the room after I ordered it, the patient did stop seizing and they gave the medication anyway. Awaited work-up including CT of the head, I reviewed the images and the report which I agree with, basically negative for any acute or chronic abnormalities and encephalomalacia noted. The rest of the patient's work-up is unremarkable. I did a CT of his abdomen/pelvis, because even when hewas unconscious, he was involuntarily guarding due to tenderness in the epigastrium. I reviewed the results and the images there as well which I agree with, basically negative for any acute lots of chronic issues and stool burden. I reevaluated the patient he is much more alert now but still little somnolent, he is disoriented and hallucinating. He has had no more seizure activity. I discussed with the family, they think he is getting dementia because his memory has been going but the hallucinations are new. It is late at night and he is recently had a lot of benzos and is very sleepy. I think admission is warrantedat least based on that. I did discuss with family, he has not had his nighttime dose of lamotrigine tonight yet, and since he is still somnolent I would rather give him something parenteral so ordering Keppra 1000 mg load. History & Record Review Discussion w/independent historian: Family Lab Data Attestation: I reviewed the patient's lab results. Labs: Laboratory Results - last 24 hr 11/01/22 11/01/22 21:30 22:20 WBC 11.9 H RBC 4.09 L Hgb 13.7 Hct 42.6 MCV 104.2 H MCH 33.5 H MCHC 32.2 RDW Std Deviation 49.4 H RDW Coeff of Verito 12.8 Plt Count 234 MPV 9.9 Immature Gran % (Auto) 0.200 Neut % (Auto) 46.8 L Lymph % (Auto) 40.6 Cook % (Auto) 5.3 Eos % (Auto) 6.5 H Baso % (Auto) 0.6 Absolute Neuts (auto) 5.6 Absolute Lymphs (auto) 4.85 H Nucleated RBC % 0 Atypical Lymphocytes 2+ Platelet Estimate ADEQUATE RBC Morphology N CHROM Anisocytosis 1+ Macrocytosis 1+ Ovalocytes RARE Sodium 135 L Potassium 4.5 Chloride 105 Carbon Dioxide 25.0 Anion Gap 5 BUN 15 Creatinine 1.00 Estim Creat Clear Calc 67.90 Est GFR (MDRD) Af Amer 96 Est GFR (MDRD) Non-Af 79 BUN/Creatinine Ratio 15.0 Glucose 77 Lactic Acid 1.1 Calcium 8.4 L Total Bilirubin 0.50 AST 29 ALT 27 Alkaline Phosphatase 79 Troponin I High Sens 7 Total Protein 6.6 Albumin 3.3 Globulin 3.3 Albumin/Globulin Ratio 1.0 Lipase 14 Radiography Diagnostic Testing: Clinical Impression(s) from Imaging Studies Brain CT 11/01/22 21:43 IMPRESSION: 1. Stable exam. 2. Encephalomalacic change and chronic gliosis in the RIGHT hemisphere localized within the RIGHT inferior parietal lobule, RIGHT temporal lobe and RIGHT occipital lobe without change. 3. No intracranial mass, hemorrhage or acute territorial infarct. 4. Chronic ethmoid sinus disease. Electronically Signed: Juan R George MD at 22:40 EDT , Abdomen/Pelvis CT 11/01/22 21:44 IMPRESSION: 1. Stable exam. 2. 11 x 13 mm noncalcified pulmonary nodule at the LEFT lung base. Findings are stable. Consider follow-up based on included recommendations. 3. Stable borderline hepatomegaly. No intrahepatic masses or ductal dilatation. 4. No evidence cholelithiasis or biliary ductal dilatation. 5. No evidence of renal calcifications or obstructive uropathy. 6. No masses bowel obstruction abscess free fluid or free air. Moderate stool burden is noted. 7. Diffuse cachexia again noted. Reference recommendations for pulmonary nodule follow-up: Fleischner Report Guidelines 2017 Evelia et al, Radiology 2017: https://pubs.rsna.org/doi/pdf/10.1148/radiol.7223952597 Nodule size: <6 mm SOLITARY low-risk: no follow-up needed high-risk: optional CT at 12 months MULTIPLE low-risk: no follow-up needed high-risk: optional CT at 12 months -- Nodule size: 6-8 mm SOLITARY low-risk: follow-up at 6-12 months, then consider further follow-up at 18-24 months high-risk: initial follow-up CT at 6-12 months and then at 18-24 months if no change MULTIPLE low-risk: follow-up CT at 3-6 months, then consider further follow-up at 18-24 months high-risk: initial follow-up CT at 3-6 months and then at 18-24 months ------ Nodule size: >8 mm SOLITARY either low or high-risk patients consider follow-up CT at 3 months, and/or CT-PET, and/or biopsy MULTIPLE low-risk: follow-up CT at 3-6 months, then consider further follow-up at 18-24 months high-risk: initial follow-up CT at 3-6 months and then at 18-24 months Electronically Signed: Juan R George MD at 23:13 EDT , Rhythm Strip Rhythm Strip: Sinus Rhythm Rate: 65 Ectopy: None Management Discussion w/another healthcare provider: Hospitalist Discharge Plan Triage Chief Complaint: Seizure ED Provider: Brennan Styles Dx/Rx/DC Orders Clinical Impression: Acute encephalopathy, Epilepsy, Seizures Prescriptions: No Action primidone 50 mg tablet 100 mg PO TID Qty: 180 5RF lamotrigine 100 mg tablet 100 mg PO BID Qty: 60 5RF ondansetron 4 mg tablet,disintegrating 4 mg PO Q6H PRN (Reason: nausea and vomiting) Qty: 10 0RF acetaminophen 500 mg capsule 1,000 mg PO Q6H PRN (Reason: pain) Qty: 120 1RF Rx Instructions: 14 day #28 folic acid 1 mg tablet 1 mg PO DAILY Qty: 90 3RF magnesium oxide 400 mg (241.3 mg magnesium) tablet 400 mg PO DAILY Qty: 90 3RF thiamine HCl (vitamin B1) 100 mg tablet 100 mg PO TID Qty: 90 1RF ascorbate calcium (vitamin C) 500 mg tablet 500 mg PO DAILY Qty: 90 1RF aspirin [Adult Aspirin Regimen] 81 mg tablet,delayed release (DR/EC) 81 mg PO DAILY Qty: 90 3RF clopidogrel [Plavix] 75 mg tablet 75 mg PO DAILY Qty: 90 3RF ferrous sulfate [FeroSul] 325 mg (65 mg iron) tablet 325 mg PO DAILY Qty: 90 3RF multivitamin with folic acid [Daily-Tin (with folic acid)] 400 mcg tablet 1 tab PO DAILY Qty: 90 3RF amiodarone 200 mg tablet 100 mg PO DAILY Qty: 90 1RF Rx Instructions: take 200 mg daily for 5 days and 1/2 tablet there after atorvastatin 40 mg tablet 40 mg PO QHS Qty: 30 12RF Primary Care Provider: Radha Quintero Referrals: Radha Quintero MD [Primary Care Provider] - What to do if you have Problems For any increased pain, shortness of breath, bleeding, nausea or vomiting, chestpain, or any unexpected problems, contact your Primary Care Provider. Call [facility] ([phone]) or report to the closest Emergency Room. Call 911 if necessary. 11/02/22 0202 <Electronically signed by Brennan Styles MD> Cosigner Signature (if applicable): CC: Dr. Radha Quintero MD ~ Signed [facility] Work Phone: 1(667) 491-228708-01-2023 History and physical note Author Zaki Vigil [facility] November 01, 2022 11:51pm Note Date/Time November 01, 2022 11:5 1pm [facility] Medical Records Department [address] [place] [address] History & Physical Exam 11/01/22 2346 MR#: [id number] Acct: [id number] Name: RADHA BRENNAN Rep #:[id number] : 1955 67 From: Zaki Vigil MD PCP: Dr. Radha Quintero MD Status:REG ER Location: ED HPI - General General Date of Admission: 11/01/22 Date of Service: 11/01/22 Chief Complaint: Seizure disorder HPI Narrative RADHA BRENNAN, is a 67 M who presents to the emergency room after experiencing a seizure at home. Patient has a history of seizure disorder for which he takes Lamictal routinely but started reminiscing about his who has been since 2014 and became stressed and induced a seizure at home lasting several minutes and ambulance was called. He had a recurrent seizure here witnessed in the emergency room that was full tonic-clonic. He has received several doses ofbenzodiazepine including midazolam and Ativan during the day and now is more confused and postictal. Patient is poor historian at present time and per friends visiting he is not at his current baseline mental status. Currently does not appear to be in any acute distress and will be admitted for observationfor recovery from his seizures. He will be given a dose of Keppra this evening as he responded well to it previously but did not continue it as an outpatient. He sees Dr. Sandhu in [place] for neurology care. [facility] Medical History Abnormal electrocardiogram 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 Atrial septal aneurysm Chronic back pain Complex laceration of scalp CVA (cerebral vascular accident) Fall from ladder Heart valve problem History of left heart catheterization (LHC) (~05/27/21) Hyperlipidemia Nicotine dependence Postoperative atrial fibrillation Scalp pain Scalp wound Seizure Syncope and collapse Home Medications acetaminophen 500 mg capsule 1,000 mg (2 x 500 mg) PO Q6H PRN pain #120 caps 02/24/22 [Rx Last Taken Unknown] folic acid 1 mg tablet 1 mg PO DAILY #90 tabs 03/30/22 [Rx Last Taken Unknown] magnesium oxide 400 mg (241.3 mg magnesium) tablet 400 mg PO DAILY #90 tabs 03/30/22 [Rx Last Taken Unknown] ondansetron 4 mg disintegrating tablet 4 mg PO Q6H PRN nausea and vomiting #10 tabs 04/10/22 [Rx Last Taken Unknown] ascorbate calcium (vitamin C) 500 mg tablet 500 mg PO DAILY #90 tabs 06/16/22 [Rx Last Taken Unknown] aspirin 81 mg tablet,delayed release (Adult Aspirin Regimen) 81 mg PO DAILY #90 tabs 06/16/22 [Rx Last Taken Unknown] clopidogrel 75 mg tablet (Plavix) 75 mg PO DAILY #90 tabs 06/16/22 [Rx Last Taken Unknown] ferrous sulfate 325 mg (65 mg iron) tablet (FeroSul) 325 mg PO DAILY #90 tabs 06/16/22 [Rx Last Taken Unknown] multivitamin with folic acid 400 mcg tablet (Daily-Tin (with folic acid)) 1 tabPO DAILY #90 tabs 06/16/22 [Rx Last Taken Unknown] thiamine HCl (vitamin B1) 100 mg tablet 100 mg PO TID #90 tabs 06/16/22 [Rx Last Taken Unknown] amiodarone 200 mg tablet 100 mg (1/2 x 200 mg) PO DAILY #90 tabs 06/18/22 [Rx Last Taken Unknown] atorvastatin 40 mg tablet 40 mg PO QHS #30 tabs 08/10/22 [Rx Last Taken Unknown] lamotrigine 100 mg tablet 100 mg PO BID #60 tabs 09/09/22 [Rx Last Taken Unknown] primidone 50 mg tablet 100 mg (2 x 50 mg) PO TID tremor #180 tabs 09/09/22 [Rx Last Taken Unknown] Allergy/AdvReac Type Severity Reaction Status Date / Time bee venom protein (honey bee) Allergy Severe Anaphylaxis Verified 09/09/22 20:14 tuberculin, purified protein Allergy Severe Swelling Verified 09/09/22 20:14 deriva Family History Mother Myocardial infarction Brother Myocardial infarction Surgical History finger surgery History of coronary artery bypass surgery (~09/21/21) History of lumbar puncture (~04/2017) lymph node resection S/P triple vessel bypass Stented coronary artery (10/06/17) Social History household members: family Smoking Status: Current every day smoker tobacco type: cigarettes Tobacco: How many years used: 61 Electronic Cigarette Use: not used second hand exposure: Yes alcohol intake: current alcohol intake frequency: a few times a month Alcohol type: hard liquor details: Patient reduced his alcohol intake when 'his lady passed in 2014' substance use type: does not use caffeine: Yes Type: carbonated beverages and coffee ROS Review of Systems ROS Unobtainable: due to encephalopathy and due to mental status Vital Signs Vital Signs Vital Signs: 11/01/22 21:07 11/01/22 21:50 11/01/22 23:15 Temperature 97.2 F L Temperature Source Temporal Pulse Rate 65 60 58 L Respiratory Rate 15 18 16 Blood Pressure 107/68 111/72 109/70 Blood Pressure Mean 81 85 83 Pulse Ox 98 100 97 Oxygen Delivery Method Room Air Nasal Cannula Room Air Oxygen Flow Rate (L/min) 2 Weight Weight: 149 lb 11.102 oz Body Mass Index (BMI) 22.1 Physical Exam Const Orientation / Consciousness: confused and lethargic HEENT normocephalic and head/scalp atraumatic Neck no lymphadenopathy Resp normal respiratory effort, normal air movement and clear to auscultation bilaterally Cardio regular rate, regular rhythm, S1 normal heart sound and S2 normal heart sound GI normal to inspection, nondistended, normoactive bowel sounds Extremity normal capillary refill Skin General Skin Exam: no breakdown Neuro Neuro Narrative: Unable to assess due to confusion Psych Thought Content: delusion(s) Results Lab / Micro Data 11/01/22 21:30 11/01/22 21:30 Labs: Laboratory Results - last 24 hr 11/01/22 21:30: WBC 11.9 H, RBC 4.09 L, Hgb 13.7, Hct 42.6, MCV 104.2 H, MCH 33.5 H, MCHC 32.2, RDW Std Deviation 49.4 H, RDW Coeff of Verito 12.8, Plt Count 234, MPV 9.9, Immature Gran % (Auto) 0.200, Neut % (Auto) 46.8 L, Lymph % (Auto)40.6, Cook % (Auto) 5.3, Eos % (Auto) 6.5 H, Baso % (Auto) 0.6, Absolute Neuts (auto) 5.6, Absolute Lymphs (auto) 4.85 H, Nucleated RBC % 0, Atypical Lymphocytes 2+, Platelet Estimate ADEQUATE, RBC Morphology N CHROM, Anisocytosis1+, Macrocytosis 1+, Ovalocytes RARE, Sodium 135 L, Potassium 4.5, Chloride 105,Carbon Dioxide 25.0, Anion Gap 5, BUN 15, Creatinine 1.00, Estim Creat Clear Calc 67.90, Est GFR (MDRD) Af Amer 96, Est GFR (MDRD) Non-Af 79, BUN/Creatinine Ratio 15.0, Glucose 77, Calcium 8.4 L, Total Bilirubin 0.50, AST 29, ALT 27, Alkaline Phosphatase 79, Troponin I High Sens 7, Total Protein 6.6, Albumin 3.3,Globulin 3.3, Albumin/Globulin Ratio 1.0, Lipase 14 11/01/22 22:20: Lactic Acid 1.1 Rhythm Strip Rhythm Strip: Sinus Rhythm Rate: 65 Ectopy: None Radiology Impression Brain CT 11/01/22 21:43 IMPRESSION: 1. Stable exam. 2. Encephalomalacic change and chronic gliosis in the RIGHT hemisphere localized within the RIGHT inferior parietal lobule, RIGHT temporal lobe and RIGHT occipital lobe without change. 3. No intracranial mass, hemorrhage or acute territorial infarct. 4. Chronic ethmoid sinus disease. Electronically Signed: Juan R George MD at 22:40 EDT , Abdomen/Pelvis CT 11/01/22 21:44 IMPRESSION: 1. Stable exam. 2. 11 x 13 mm noncalcified pulmonary nodule at the LEFT lung base. Findings are stable. Consider follow-up based on included recommendations. 3. Stable borderline hepatomegaly. No intrahepatic masses or ductal dilatation. 4. No evidence cholelithiasis or biliary ductal dilatation. 5. No evidence of renal calcifications or obstructive uropathy. 6. No masses bowel obstruction abscess free fluid or free air. Moderate stool burden is noted. 7. Diffuse cachexia again noted. Reference recommendations for pulmonary nodule follow-up: Fleischner Report Guidelines 2017 MacMahon et al, Radiology 2017: https://pubs.rsna.org/doi/pdf/10.1148/radiol.7640955806 Nodule size: <6 mm SOLITARY low-risk: no follow-up needed high-risk: optional CT at 12 months MULTIPLE low-risk: no follow-up needed high-risk: optional CT at 12 months -- Nodule size: 6-8 mm SOLITARY low-risk: follow-up at 6-12 months, then consider further follow-up at 18-24 months high-risk: initial follow-up CT at 6-12 months and then at 18-24 months if no change MULTIPLE low-risk: follow-up CT at 3-6 months, then consider further follow-up at 18-24 months high-risk: initial follow-up CT at 3-6 months and then at 18-24 months ----- - Nodule size: >8 mm SOLITARY either low or high-risk patients consider follow-up CT at 3 months, and/or CT-PET, and/or biopsy MULTIPLE low-risk: follow-up CT at 3-6 months, then consider further follow-up at 18-24 months high-risk: initial follow-up CT at 3-6 months and then at 18-24 months Electronically Signed: Juan R George MD at 23:13 EDT , Assessment & Plan Assessment/Plan (1) Seizures: (2) Acute encephalopathy: (3) History of coronary artery bypass surgery: PLAN: Plan 1 seizure disorder?admit patient to progressive care unit with seizure precautions, observe for further seizure activity and recovery from his previoussurgeries. We will have Ativan as needed for any seizure activity. Continue Keppra started in the emergency room at discharge 2. Coronary artery disease history of coronary artery bypass?continue statin and other coronary element medications 3. DVT prophylaxis?low molecular weight heparin Charges/Coding Visit Charges OBSV E&M: 25363 Observ/hosp same date L2 11/01/22 2351 <Electronically signed by Zaki Vigil MD> Cosigner Signature (if applicable): CC: Dr. Radha Quintero MD; Dr. Zaki Vigil MD~ Signed [facility] Work Phone: 1(299) 355-931207-19-2023 Discharge summary Author Zaki Estevez [facility] October 20, 2022 10:14pm Note Date/Time October 20, 2022 8:30 pm [facility] Medical Records Department [address] [place] [id number] Emergency Department Summary 10/20/22 MR#: [id number] Acct: [id number] Name: RADHA BRENNAN Rep #:[id number] : 1955 67 From: Zaki Estevez MD PCP: Dr. Radha Quintero MD Status:REG ER Location: ED HPI History of Present Illness Chief Complaint: Seizure Narrative Narrative: Patient presents after witnessed seizure. The history from granddaughter who saw him is that he had a tonic-clonic seizure now he is postictal. Last seizureepisode was about 6 months ago. He is on Lamictal. He is not withdrawing from anything. No witnessed injury other than I am being told by family that few weeks ago he climbed on a ladder and fell and hit his head. [facility] Medical History Abnormal electrocardiogram 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 Atrial septal aneurysm Chronic back pain Complex laceration of scalp CVA (cerebral vascular accident) Fall from ladder Heart valve problem History of left heart catheterization (LHC) (~05/27/21) Hyperlipidemia Nicotine dependence Postoperative atrial fibrillation Scalp pain Scalp wound Seizure Syncope and collapse Home Medications acetaminophen 500 mg capsule 1,000 mg (2 x 500 mg) PO Q6H PRN pain #120 caps 02/24/22 [Rx Last Taken Unknown] folic acid 1 mg tablet 1 mg PO DAILY #90 tabs 03/30/22 [Rx Last Taken Unknown] magnesium oxide 400 mg (241.3 mg magnesium) tablet 400 mg PO DAILY #90 tabs 03/30/22 [Rx Last Taken Unknown] ondansetron 4 mg disintegrating tablet 4 mg PO Q6H PRN nausea and vomiting #10 tabs 04/10/22 [Rx Last Taken Unknown] ascorbate calcium (vitamin C) 500 mg tablet 500 mg PO DAILY #90 tabs 06/16/22 [Rx Last Taken Unknown] aspirin 81 mg tablet,delayed release (Adult Aspirin Regimen) 81 mg PO DAILY #90 tabs 06/16/22 [Rx Last Taken Unknown] clopidogrel 75 mg tablet (Plavix) 75 mg PO DAILY #90 tabs 06/16/22 [Rx Last Taken Unknown] ferrous sulfate 325 mg (65 mg iron) tablet (FeroSul) 325 mg PO DAILY #90 tabs 06/16/22 [Rx Last Taken Unknown] multivitamin with folic acid 400 mcg tablet (Daily-Tin (with folic acid)) 1 tabPO DAILY #90 tabs 06/16/22 [Rx Last Taken Unknown] thiamine HCl (vitamin B1) 100 mg tablet 100 mg PO TID #90 tabs 06/16/22 [Rx Last Taken Unknown] amiodarone 200 mg tablet 100 mg (1/2 x 200 mg) PO DAILY #90 tabs 06/18/22 [Rx Last Taken Unknown] atorvastatin 40 mg tablet 40 mg PO QHS #30 tabs 08/10/22 [Rx Last Taken Unknown] doxycycline hyclate 100 mg capsule 100 mg PO BID #20 caps 09/07/22 [Rx Last Taken Unknown] lamotrigine 100 mg tablet 100 mg PO BID #60 tabs 09/09/22 [Rx Last Taken Unknown] primidone 50 mg tablet 100 mg (2 x 50 mg) PO TID tremor #180 tabs 09/09/22 [Rx Last Taken Unknown] Allergy/AdvReac Type Severity Reaction Status Date / Time bee venom protein (honey bee) Allergy Severe Anaphylaxis Verified 09/09/22 20:14 tuberculin, purified protein Allergy Severe Swelling Verified 09/09/22 20:14 deriva Family History Mother Myocardial infarction Brother Myocardial infarction Surgical History finger surgery History of coronary artery bypass surgery (~09/21/21) History of lumbar puncture (~04/2017) lymph node resection S/P triple vessel bypass Stented coronary artery (10/06/17) Social History household members: family Smoking Status: Current every day smoker tobacco type: cigarettes Tobacco: How many years used: 61 Electronic Cigarette Use: not used second hand exposure: Yes alcohol intake: current alcohol intake frequency: a few times a month Alcohol type: hard liquor details: Patient reduced his alcohol intake when 'his lady passed in 2014' substance use type: does not use caffeine: Yes Type: carbonated beverages and coffee ROS ROS ED ROS Narrative Unable to obtain review of systems from him he is postictal. Most of the history is from family. EXAM Physical Exam Narrative Exam Narrative: Physical exam General: Patient appears chronically ill. He is now postictal. Head: Normocephalic, old abrasion on top of his head. Eyes: Conjunctiva not pale. Pupils are 3 mm and reactive ENT: Moist mucous membranes. Normal tongue without abrasions Neck: Supple, Nontender, No lymphadenopathy Cardiovascular: Regular rate, Regular rhythm. Midline scar from prior cardiothoracic surgery Respiratory: No distress, CTA bilaterally Abdomen: Soft, Nontender, Nondistended Back: Nontender, Normal Inspection. Negative for: CVA tenderness Extremities: Nontender, No edema. Full range of motion without trauma Skin: Normal color, No rash Neurological: Somnolent but arousable, he is still confused. He has no focal deficit. He does have a Parkinson's tremor which I am assured by family membersthat this is chronic tremor. Const Vital Signs: 10/20/22 20:16 Temperature 97.6 F L Temperature Source Temporal Pulse Rate 60 Respiratory Rate 18 Blood Pressure 111/60 Blood Pressure Mean 77 Pulse Ox 97 Oxygen Delivery Method Room Air MDM MDM MDM Narrative Medical decision making narrative: Patient was observed in the ED I reevaluated him. Now he is no longer postictal. He is lucid and coherent understands what happened to him. He appears well there is no signs of injury. CT is unremarkable. Blood work is unremarkable. I had a conversation with family and they feel like he is safe for discharge she will be discharged in stable condition. If any changes she isto return. At this time there is no reason for his seizure other than his seizure disorder, he is not withdrawing from medications or drugs, he has no fevers or signs of any kind of infection, he has no electrolyte abnormalities like sodium because of seizure. Lab Data Labs: Laboratory Results - last 24 hr 10/20/22 20:33 WBC 9.8 RBC 3.85 L Hgb 13.2 Hct 38.6 L MCV 100.3 H MCH 34.3 H MCHC 34.2 RDW Std Deviation 48.1 H RDW Coeff of Verito 13.0 Plt Count 240 MPV 9.8 Immature Gran % (Auto) 0.200 Neut % (Auto) 35.2 L Lymph % (Auto) 45.3 H Cook % (Auto) 10.2 H Eos % (Auto) 8.5 H Baso % (Auto) 0.6 Absolute Neuts (auto) 3.5 Absolute Lymphs (auto) 4.44 Nucleated RBC % 0 Differential Comment SCANNED Atypical Lymphocytes RARE Sodium 138 Potassium 4.1 Chloride 105 Carbon Dioxide 31.0 Anion Gap 2 L BUN 16 Creatinine 1.03 Estim Creat Clear Calc 63.79 Est GFR (MDRD) Af Amer 92 Est GFR (MDRD) Non-Af 76 BUN/Creatinine Ratio 15.5 Glucose 93 Lactic Acid 1.2 Calcium 8.6 Total Bilirubin 0.40 AST 18 ALT 27 Alkaline Phosphatase 84 Total Protein 6.4 Albumin 3.3 Globulin 3.1 Albumin/Globulin Ratio 1.1 Radiography Diagnostic Testing: Clinical Impression(s) from Imaging Studies Brain CT 10/20/22 20:53 IMPRESSION: No acute findings in the head/brain. Electronically Signed: Aubrey Adams MD at 21:14 EDT Reading Location ID and State: [facility] / [place] , Service support , EKG Initial EKG: Comments: Sinus rhythm with a rate of 57. Normal MS interval. Normal QTcinterval. Left axis deviation. Nonspecific ST changes. No acute ischemic changes. Interpreted by emergency doctor Discharge Plan Triage Chief Complaint: Seizure ED Provider: Zaki Estevez Dx/Rx/DC Orders Clinical Impression: Epilepsy, Seizure, Parkinsonism Instructions: Discharge Instructions for Epilepsy Prescriptions: No Action primidone 50 mg tablet 100 mg PO TID Qty: 180 5RF lamotrigine 100 mg tablet 100 mg PO BID Qty: 60 5RF doxycycline hyclate 100 mg capsule 100 mg PO BID Qty: 20 0RF ondansetron 4 mg tablet,disintegrating 4 mg PO Q6H PRN (Reason: nausea and vomiting) Qty: 10 0RF acetaminophen 500 mg capsule 1,000 mg PO Q6H PRN (Reason: pain) Qty: 120 1RF Rx Instructions: 14 day #28 folic acid 1 mg tablet 1 mg PO DAILY Qty: 90 3RF magnesium oxide 400 mg (241.3 mg magnesium) tablet 400 mg PO DAILY Qty: 90 3RF thiamine HCl (vitamin B1) 100 mg tablet 100 mg PO TID Qty: 90 1RF ascorbate calcium (vitamin C) 500 mg tablet 500 mg PO DAILY Qty: 90 1RF aspirin [Adult Aspirin Regimen] 81 mg tablet,delayed release (DR/EC) 81 mg PO DAILY Qty: 90 3RF clopidogrel [Plavix] 75 mg tablet 75 mg PO DAILY Qty: 90 3RF ferrous sulfate [FeroSul] 325 mg (65 mg iron) tablet 325 mg PO DAILY Qty: 90 3RF multivitamin with folic acid [Daily-Tin (with folic acid)] 400 mcg tablet 1 tab PO DAILY Qty: 90 3RF amiodarone 200 mg tablet 100 mg PO DAILY Qty: 90 1RF Rx Instructions: take 200 mg daily for 5 days and 1/2 tablet there after atorvastatin 40 mg tablet 40 mg PO QHS Qty: 30 12RF Primary Care Provider: Radha Quintero Referrals: Radha Quintero MD [Primary Care Provider] - 3-5 Days Disposition Disposition: Home, Self Care What to do if you have Problems For any increased pain, shortness of breath, bleeding, nausea or vomiting, chestpain, or any unexpected problems, contact your Primary Care Provider. Call [facility] ([phone]) or report to the closest Emergency Room. Call 911 if necessary. 10/20/222213 <Electronically signed by Zaki Estevez MD> Cosigner Signature (if applicable): CC: Dr. Radha Quintero MD ~ Signed [facility] Work Phone: [phone] Hospital Discharge instructions Patient Education 09/15/2022 12:28:10 Fall Prevention in the Home, Adult Fall Prevention in the Home, Adult Falls can cause injuries and can affect people from all age groups. There are many simple things that you can do to make your home safe and to help prevent falls. Ask for help when making these changes, if needed. What actions can I take to prevent falls? General instructions Use good lighting in all rooms. Replace any light bulbs that burn out. Turn on lights if it is dark. Use night-lights. Place frequently used items in bsva-yy-wwusf places. Lower the shelves around your home if necessary. Set up furniture so that there are clear paths around it. Avoid moving your furniture around. Remove throw rugs and other tripping hazards from the floor. Avoid walking on wet floors. Fix any uneven floor surfaces. Add color or contrast paint or tape to grab bars and handrails in your home. Place contrasting color strips on the first and last steps of stairways. When you use a stepladder, make sure that it is completely opened and that the sides are firmly locked. Have someone hold the ladder while you are using it. Do not climb a closed stepladder. Be aware of any and all pets. What can I do in the bathroom? Keep the floor dry. Immediately clean up any water that spills onto the floor. Remove soap buildup in the tub or shower on a regular basis. Use non-skid mats or decals on the floor of the tub or shower. Attach bath mats securely with double-sided, non-slip rug tape. If you need to sit down while you are in the shower, use a plastic, non-slip stool. Install grab bars by the toilet and in the tub and shower. Do not use towel bars as grab bars. What can I do in the bedroom? Make sure that a bedside light is easy to reach. Do not use oversized bedding that drapes onto the floor. Have a firm chair that has side arms to use for getting dressed. What can I do in the kitchen? Clean up any spills right away. If you need to reach for something above you, use a sturdy step stool that has a grab bar. Keep electrical cables out of the way. Do not use floor south african or wax that makes floors slippery. If you must use wax, make sure that it is non-skid floor wax. What can I do in the stairways? Do not leave any items on the stairs. Make sure that you have a light switch at the top of the stairs and the bottom of the stairs. Have them installed if you do not have them. Make sure that there are handrails on both sides of the stairs. Fix handrails that are broken or loose. Make sure that handrails are as long as the stairways. Install non-slip stair treads on all stairs in your home. Avoid having throw rugs at the top or bottom of stairways, or secure the rugs with carpet tape to prevent them from moving. Choose a carpet design that does not hide the edge of steps on the stairway. Check any carpeting to make sure that it is firmly attached to the stairs. Fix any carpet that is loose or worn. What can I do on the outside of my home? Use bright outdoor lighting. Regularly repair the edges of walkways and driveways and fix any cracks. Remove high doorway thresholds. Trim any shrubbery on the main path into your home. Regularly check that handrails are securely fastened and in good repair. Both sides of any steps should have handrails. Install guardrails along the edges of any raised decks or porches. Clear walkways of debris and clutter, including tools and rocks. Have leaves, snow, and ice cleared regularly. Use sand or salt on walkways during winter months. In the garage, clean up any spills right away, including grease or oil spills. What other actions can I take? Wear closed-toe shoes that fit well and support your feet. Wear shoes that have rubber soles or lowheels. Use mobility aids as needed, such as canes, walkers, scooters, and crutches. Review your medicines with your health care provider. Some medicines can cause dizziness or changesin blood pressure, which increase your risk of falling. Talk with your health care provider about other ways that you can decrease your risk of falls. Thismay include working with a physical therapist or first aid trainer to improve your strength, balance, and endurance. Where to find more information Centers for Disease Control and Prevention, [place]: https://www.cdc.gov [place] on Aging: https://kr9wkhr.jeannette.nih.gov Contact a health care provider if: You are afraid of falling at home. You feel weak, drowsy, or dizzy at home. You fall at home. Summary There are many simple things that you can do to make your home safe and to help prevent falls. Ways to make your home safe include removing tripping hazards and installing grab bars in the bathroom. Ask for help when making these changes in your home. This information is not intended to replace advice given to you by your health care provider. Make sure you discuss any questions you have with your health care provider. Document Released: 03/11/2003 Document Revised: 03/03/2018 Document Reviewed: 11/03/2017 Rebecca Patient Education 2020 [employer] 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 If you have worsening symptoms (such as numbness or weaknessin your arms or legs), you will need follow up. With:[facility] will be providing your home healthcare services at home. They should be contacting you soon. If you do not hear from them within 24 hours after discharge, please give them a call at the provided number. Address: When:1-2 days With:RADHA QUINTERO MD Address: [address] [place] [phone]- When:1-2 days Comments:Please call the office to schedule a follow up appointment. [facility] 06-14-2023 Note Discharge Instructions Thank you for allowing [facility] to assist you with your healthcare needs. The following is importantdischarge information regarding your hospital visit. 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 If you have worsening symptoms (such as numbness or weakness in your arms or legs), you will need follow up. Where: [address] [facility] [address] [facility] [place] [address] [phone] Follow Up with [facility] will be providing your home healthcare services at home. They should be contacting you soon. If you do not hear from them within 24 hours after discharge, please give them a call at the provided number. When Within 1-2 days Where: Follow Up with RADHA QUINTERO MD When Within 1-2 days Why: Please call the office to schedule a follow up appointment. Where: [address] [facility] [address] [place] [address]- The Following Activity and Diet Have Been Ordered for You Discharge Activity - Ordered -- Resume your pre-hospitalization activity, 09/15/22 10:27:00 EDT Discharge Driving Restrictions - Ordered -- No driving until follow up appt, 09/15/22 10:27:00 EDT Discharge Diet - Ordered -- No changes were made to your diet during your hospital stay. Please resume your pre hospitalization diet on discharge., 09/15/22 10:27:00 EDT The Following Equipment Has Been Ordered for You No qualifying data available. The Following Treatments Have Been Ordered for You Discharge Labs No qualifying data available. Discharge Radiology No qualifying data available. Other Therapies No qualifying data available. Post Acute Orders No qualifying data available. Someone Will Contact You Regarding These Home Health Referrals No home referrals have been ordered for you. No one will call you. Allergies No Known Medication Allergies Medications Please ask your primary doctor or pharmacist before taking any other medication not listed, including over the counter drugs, herbal medications, vitamins and or supplements as they may interact withyour home medications. What How Much When Instructions Last Dose Unchanged acetaminophen (acetaminophen 500 mg oral capsule) 2 cap by mouth Every 4 hours as needed for for fever Unchanged amiodarone (amiodarone 200 mg oral tablet) 1 tab(s) by mouth Once a day with a meal Unchanged ascorbic acid (Vitamin C 500 mg oral tablet) 1 tab(s) by mouth Once a day Unchanged aspirin (aspirin 81 mg oral delayed release tablet) 1 tab(s) by mouth Once a day Unchanged atorvastatin (atorvastatin 40 mg oral tablet) 1 tab(s) by mouth Daily at bedtime Unchanged clopidogrel (clopidogrel 75 mg oral tablet) 1 tab(s) by mouth Once a day Unchanged ferrous sulfate (ferrous sulfate 325 mg (65 mg elemental iron) oral delayed release tablet) 1 tab(s) by mouth Once a day Unchanged folic acid (folic acid 1 mg oral tablet) 1 tab(s) by mouth Once a day Unchanged lamoTRIgine (lamoTRIgine 100 mg oral tablet) 1 tab(s) by mouth Two (2) times a day Unchanged magnesium oxide (magnesium oxide 400 mg oral tablet) 1 tab(s) by mouth Every day Duration: 10 Days Unchanged multivitamin (Daily Tin oral tablet) 1 tab(s) by mouth Every day Unchanged primidone (primidone 50 mg oral tablet) 2 tab(s) by mouth Three (3) times a day Unchanged thiamine (thiamine 100 mg oral tablet) 1 tab(s) by mouth Every day What How Much When Comments Stop Taking doxycycline (doxycycline hyclate 100 mg oral capsule) 1 cap by mouth Two (2) times a day Duration: 10 Days Stop Taking ondansetron (ondansetron 4 mg oral tablet) 1 tab(s) by mouth Every 6 hours as needed for Nausea/Vomiting Please take this list to your next doctor s visit. Bring all medications you take, including over the counter medications, herbals and other supplements with you to your doctor s visit. Patients and families are reminded to discard old lists and to update any records with all medication providers or retail pharmacies. Education Materials Fall Prevention in the Home, Adult Falls can cause injuries and can affect people from all age groups. There are many simple things that you can do to make your home safe and to help prevent falls. Ask for help when making these changes, if needed. What actions can I take to prevent falls? General instructions Use good lighting in all rooms. Replace any light bulbs that burn out. Turn on lights if it is dark. Use night-lights. Place frequently used items in jhop-bb-mzbnn places. Lower the shelves around your home if necessary. Set up furniture so that there are clear paths around it. Avoid moving your furniture around. Remove throw rugs and other tripping hazards from the floor. Avoid walking on wet floors. Fix any uneven floor surfaces. Add color or contrast paint or tape to grab bars and handrails in your home. Place contrasting color strips on the first and last steps of stairways. When you use a stepladder, make sure that it is completely opened and that the sides are firmly locked. Have someone hold the ladder while you are using it. Do not climb a closed stepladder. Be aware of any and all pets. What can I do in the bathroom? Keep the floor dry. Immediately clean up any water that spills onto the floor. Remove soap buildup in the tub or shower on a regular basis. Use non-skid mats or decals on the floor of the tub or shower. Attach bath mats securely with double-sided, non-slip rug tape. If you need to sit down while you are in the shower, use a plastic, non-slip stool. Install grab bars by the toilet and in the tub and shower. Do not use towel bars as grab bars. What can I do in the bedroom? Make sure that a bedside light is easy to reach. Do not use oversized bedding that drapes onto the floor. Have a firm chair that has side arms to use for getting dressed. What can I do in the kitchen? Clean up any spills right away. If you need to reach for something above you, use a sturdy step stool that has a grab bar. Keep electrical cables out of the way. Do not use floor south african or wax that makes floors slippery. If you must use wax, make sure that it is non-skid floor wax. What can I do in the stairways? Do not leave any items on the stairs. Make sure that you have a light switch at the top of the stairs and the bottom of the stairs. Have them installed if you do not have them. Make sure that there are handrails on both sides of the stairs. Fix handrails that are broken or loose. Make sure that handrails are as long as the stairways. Install non-slip stair treads on all stairs in your home. Avoid having throw rugs at the top or bottom of stairways, or secure the rugs with carpet tape to prevent them from moving. Choose a carpet design that does not hide the edge of steps on the stairway. Check any carpeting to make sure that it is firmly attached to the stairs. Fix any carpet that is loose or worn. What can I do on the outside of my home? Use bright outdoor lighting. Regularly repair the edges of walkways and driveways and fix any cracks. Remove high doorway thresholds. Trim any shrubbery on the main path into your home. Regularly check that handrails are securely fastened and in good repair. Both sides of any steps should have handrails. Install guardrails along the edges of any raised decks or porches. Clear walkways of debris and clutter, including tools and rocks. Have leaves, snow, and ice cleared regularly. Use sand or salt on walkways during winter months. In the garage, clean up any spills right away, including grease or oil spills. What other actions can I take? Wear closed-toe shoes that fit well and support your feet. Wear shoes that have rubber soles or lowheels. Use mobility aids as needed, such as canes, walkers, scooters, and crutches. Review your medicines with your health care provider. Some medicines can cause dizziness or changesin blood pressure, which increase your risk of falling. Talk with your health care provider about other ways that you can decrease your risk of falls. Thismay include working with a physical therapist or first aid trainer to improve your strength, balance, and endurance. Where to find more information Centers for Disease Control and PreventionNITA: https://www.cdc.gov National [place] on Aging: https://qo9xomp.jeannette.nih.gov Contact a health care provider if: You are afraid of falling at home. You feel weak, drowsy, or dizzy at home. You fall at home. Summary There are many simple things that you can do to make your home safe and to help prevent falls. Ways to make your home safe include removing tripping hazards and installing grab bars in the bathroom. Ask for help when making these changes in your home. This information is not intended to replace advice given to you by your health care provider. Make sure you discuss any questions you have with your health care provider. Document Released: 03/11/2003 Document Revised: 03/03/2018 Document Reviewed: 11/03/2017 [employer] Patient Education 2020 [employer]. Additional Information VACCINATE! IT SAVES LIVES! Members of the community who have not yet received the COVID-19 vaccine and would like to receive it can visit one of [facility] vaccine clinics. There are many vaccine clinic locations within the [facility]. For locations and available times, please visit https://gettheshot.coronavirus.[place].gov/. It is important to note that some COVID mobile vaccine clinics are held outdoors and may be canceled in rainy or stormy conditions. To learn more about pediatric vaccinations (ages 5-11), we invite you to visit the [facility] webpage. https://www.[email or web address]/[email or web address]-[email or web address] stions.htmlTo learn more about the COVID-19 vaccine, we invite you to visit the CDC website for a list of frequently asked questions.https://www.cdc.gov/coronavirus/2019-ncov/vaccines/faq.html [facility] Patient Portal Access Instructions: Stay connected with your healthcare team and access your personal medical information anytime with the [facility] Patient Portal. Please follow the directions below to create your [facility] account: 1.Access the email account you provided upon registration to the hospital/physician office.2.Look for an invitation email from [facility].3.Open the email and access the invitation link: AcceptInvitation to [facility].4.Fill in the required pineda to create your account. To access your account, visit [facility]Goal ZeroOneChart. Click the blue button labeled Access Patient Portal and then log in with the username and password that you created in the steps above. You will be able to view your test results, lab results, a summary of your visits, upcoming appointments and more. There is also a convenient messaging option where you can send secure messages to your p T[employer]ider. In addition, you will have the ability to download any documents or summaries to your computer and/or send the information securely to a physician. Remember that your healthcare information is confidential, so carefully consider who you will allowto register on the [facility] Patient Portal for access to your information. You can also access the [facility] Patient Portal on the [facility] [facility] fernando. Simply click on Patient Portal and then log into your account. If you would like to receive a full copy of your medical records, please contact the [facility] Medical Records Department by calling [phone], Tuesday through Tuesday between 8 a.m. and 4:30 p.m. HOW TO SAFELY DISPOSE OF PRESCRIPTION MEDICATIONS Please use one of the following methods to safely dispose of your unused medications. 1.Use a drug disposal kit: the drug disposal pouch allows you to safely discard your old and unuseddrugs. Ask your nurse to give you one when you are discharged.2.Visit a local take-back location: Many local pharmacies and police departments have programs that collect old and unwanted prescriptiondrugs. Call your local pharmacy or go to [email or web address]/[email or web address] to find one close to you.3.Make use of household items: Use cat litter or old coffee grounds to dispose medications if other options arenot available. Mix your drugs with these household products, seal them in an airtight container andthrow it into the garbage. Call [facility]: [phone] to be sure your drugs can be disposed of in this way. Some medicines may require a different approach.4.Never flush your medications down the toilet. IF YOU HAVE BEEN PRESCRIBED AN OPIOID FOR PAIN If you have been prescribed an opioid (such as hydrocodone, oxycodone or morphine), it is critical to understand the possible side effects and risks of opioid pain medications. Even when taken as directed, opioids can have several side effects including: Tolerance, meaning you might need to take more of a medication for the same pain relief. Nausea, vomiting and/or constipation. Sleepiness, dizziness, dry mouth, confusion, depression or itching. Physical dependence, meaning you have withdrawal symptoms when a medication is stopped, can develop within a few days. KNOW YOUR RESPONSIBILITIES It is important to know exactly how much and how often to take the opioid pain medications you are prescribed. Never take opioids in higher amounts or more often than prescribed. Do not combine opioids with alcohol or other drugs that cause drowsiness, such as benzodiazepines, also known as benzos, including diazepam and alprazolam, muscle relaxants or sleep aids. Never sell or share prescription opioids. This is illegal. Store opioids in a secure place and out of reach of others (including children, family, friends and visitors). The last page of this document has been signed and retained as a CHART COPY. Signatures Patient Education Materials Fall Prevention in the Home, Adult Medication Leaflets My discharge plan and instructions have been reviewed and explained to me and I,RADHA BRENNAN understand my current condition and have read and understand these discharge instructions. I have received a written copy of the plan/instructions. If I have questions, I am aware that I should contact my doctor. Patient/Heel Scourer Signature: Date/Time: Relationship to Patient: Witness Name/Signature: Date/Time: [id number] Nurse Progress note I was present for all medications administered by student nurse. Proper patient verification obtained and medications verified for accuracy prior to administration.. Digitally Signed by Patricia Danielle RN on 09/15/2022 12:11 PM [id number] Discharge summary Date of Service 09/15/2022 Discharge Diagnosis 1. Encephalopathy, unclear of etiology, suspect concussion related to recent trauma. 2. Hypertension. 3. Cigarette nicotine abuse 4. Coronary disease with history of CABG. 5. History of stroke. 6. History of seizure. 7. Scalp laceration from recent fall. 8. Cervical spinal cord stress reaction edema, cervical stenosis 9. 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 Patient was taken to [place] emergency department due to having a change in mental status. Reportedly around 1 week ago the patient fell 20 feet from a ladder and hitting his head. [facility] did a work-up including MRI of the brain which showed chronic strokebut nothing acute. They also did a CT of the cervical spine which did not show any concerning finding. Patient was evaluated by neurology and was cleared for discharge. He also subsequently was undera car working on a car when he scraped his head and therefore again was taken to [facility] for evaluation. On his first fall he did develop a scalp laceration and then developed another 1 withthe car injury. The lacerations were stitched and the patient was discharged home. Over the last several days the patient has been very confused and therefore family took him to the emergency room for evaluation. They have not noted any seizure-like activity or strokelike symptoms. He basically is just very weak and very confused. Since arriving here the patient knows his name but otherwise is not oriented to situation or place.He was confused and had difficulty initially following commands. This cleared very quickly. His admitting labs were unremarkable. Toxicology by serum was unrevealing. CT head without contrast showed remote right cerebellar infarct otherwise no concerning finding. CT cervical spine without contrast did not show any acute fracture or dislocation. Show degenerative changes most prominent at C5-C6 with central canal and foraminal stenosis. During admission, he underwent MRI of the brain and cervical spine as well as EEG and was seen in consultation by neurology. MRI of the brain showed no acute abnormality but chronic encephalomalacia in the right parieto-occipital region from prior stroke. EEG was unremarkable as well. MRI C-spine showed: Stress reaction edema most prominent at C4, and to a lesser degree at C5 and C6. No definite fracture. Moderate C5-6 spinal canal stenosis. Foraminal stenosis (moderate right C4-5, severe bilateral C5-6). Neurology recommended neurosurgery review of his C-spine. Neurosurgery did see the patient and feels that this is likely all related to chronic changes and anticipate that he will need neurosurgical decompression of his cervical spine at some point. They plan outpatient follow-up for planning. Theyalso recommend he follow-up with neurology as outpatient for suspected Parkinson syndrome versus Parkinson's disease given his exam findings. Discussed with his daughter, shoshana Dudley: plan of care and follow up plans. Questions sought and answered. Allergies No Known Medication Allergies Consults Consult to Physician - Ordered -- 09/13/22 0:36:00 EDT, BRIANNA LEDEZMA MD, Routine, Encephalopathy Consult to Physician - Ordered -- 09/14/22 15:22:00 EDT, SHAKIRA HERNANDEZ MD, Routine, MRI C spine showed Stress reaction edema most prominent at C4, and to a lesser degree at C5 andC6. No definite fracture. Moderate C5-6 spinal canal stenosis. Foraminal stenosis (moderate right C4-5,... Physical Exam Vitals and Measurements T: 36.6 C (Oral) TMIN: 36.4 C (Oral) TMAX: 37.0 C (Oral) HR: 56(Monitored) RR: 19 BP: 111/62 SpO2: 97% Weight Dosing Weight: 59.6 kg (09/13/22) General Appearance: Age-appropriate male, resting in bed, no acute distress, oriented x3 Head: Laceration noted to the top of his head, covered EENT: Pupils equal and reactive, extraocular muscles intact, tongue midline, decreased eye blink Neck: Supple Cardiac: Regular rate and rhythm, S1, S2 Lungs: Clear to auscultation bilaterally Abdomen: Soft, nontender throughout Musculoskeletal: No joint deformities Extremities: No clubbing cyanosis or edema Neurological: Cranial nerves II through XII appear intact, strength appears to be 5 out of 5, he does describe some numbness along the ventral medial surface of the left forearm, he has notable pill-rolling tremor to the right upper extremity Psychiatric: Pleasant and cooperative Code Status Code Status - Ordered -- 09/13/22 0:13:00 EDT, Full Code, Constant Order Admission Date 09/13/2022 Discharge Date 09/15/2022 Medications Unchanged acetaminophen (acetaminophen 500 mg oral capsule)2 cap by mouth every 4 hours as needed for fever. amiodarone (amiodarone 200 mg oral tablet)1 tab(s) by mouth once a day with a meal. ascorbic acid (Vitamin C 500 mg oral tablet)1 tab(s) by mouth once a day. aspirin (aspirin 81 mg oral delayed release tablet)1 tab(s) by mouth once a day. atorvastatin (atorvastatin 40 mg oral tablet)1 tab(s) by mouth daily at bedtime. clopidogrel (clopidogrel 75 mg oral tablet)1 tab(s) by mouth once a day. ferrous sulfate (ferrous sulfate 325 mg (65 mg elemental iron) oral delayed release tablet)1 tab(s)by mouth once a day. folic acid (folic acid 1 mg oral tablet)1 tab(s) by mouth once a day. lamoTRIgine (lamoTRIgine 100 mg oral tablet)1 tab(s) by mouth two (2) times a day. magnesium oxide (magnesium oxide 400 mg oral tablet)1 tab(s) by mouth every day for 10 Days. multivitamin (Daily Tin oral tablet)1 tab(s) by mouth every day. primidone (primidone 50 mg oral tablet)2 tab(s) by mouth three (3) times a day. thiamine (thiamine 100 mg oral tablet)1 tab(s) by mouth every day. Discontinued doxycycline (doxycycline hyclate 100 mg oral capsule)1 cap by mouth two (2) times a day for 10 Days. ondansetron (ondansetron 4 mg oral tablet)1 tab(s) by mouth every 6 hours as needed Nausea/Vomiting. Follow Up Follow Up with MARYAM SANDHU MD, Neurology Service When Within 5 to 7 days Why: For concer for Parkinsonism versus Parkinson's disease Where: [address] [facility] [place] [address]- [phone] Follow Up with SANTA ROJAS MD, Neurosurgery When Only if needed Why: You have arthritis in your neck spine. If you have worsening symptoms (such as numbness or weakness in your arms or legs), you will need follow up. Where: [address] [facility] [address] [facility] [place] [address]- [phone] Follow Up with [facility] will be providing your home healthcare services at home. They should be contacting you soon. If you do not hear from them within 24 hours after discharge, please give them a call at the provided number. When Within 1-2 days Where: Follow Up with RADHA QUINTERO MD When Within 1-2 days Why: Please call the office to schedule a follow up appointment. Where: [address] [facility] [facility] [address] [place] [address]- Follow Up Appointments No qualifying data available. Follow Up Labs/Studies Discharge Labs No Follow-up Labs Discharge Studies No Follow-up Studies Discharge Diet No qualifying data available. Discharge Activity No qualifying data available. Condition on Discharge Stable Discharge Disposition Home with family Information Provided To DaughterMalik,and patient Time Spent >40 minutes Digitally Signed by MARYAM STAFFORD MD on 09/15/2022 10:26 AM [id number] Note Date of Service 09/14/2022 Chief Complaint Can I go home today Subjective Patient was oriented x3 for me and able to explain his story of the fall with the ladder falling against the tree and he states he hit his head into the tree and then landed off the ladder on his stomach about 20 feet down. He was able to get up immediately after crawling on his knees for several feet. He has no new complaints today and was asking if he can go home. His daughter, Malik, was on the phone and stated that she he still seemed confused. Objective Vitals and Measurements T: 36.4 C (Oral) TMIN: 36.4 C (Oral) TMAX: 37 C (Oral) HR: 58 RR: 18 BP: 114/71 SpO2: 98% Intake and Output 7AM Yesterday to 7AM Today Intake and Output (Last 24 hours) Intake Output Urine Voided 800.00 Urine Count 4.00 Total Summary Total Intake 0.00 Total Output 800.00 Fluid Balance -800.00 Physical Exam General Appearance: Age-appropriate male, resting in bed, no acute distress, oriented x3 Head: Laceration noted to the top of his head, bleeding controlled no erythema noted EENT: Pupils equal and reactive, extraocular muscles intact, tongue midline, decreased eye blink Neck: Supple Cardiac: Regular rate and rhythm, S1, S2 Lungs: Clear to auscultation bilaterally Abdomen: Soft, nontender throughout Musculoskeletal: No joint deformities Extremities: No clubbing cyanosis or edema Neurological: Cranial nerves II through XII appear intact, strength appears to be 5 out of 5, he does describe some numbness along the ventral medial surface of the left forearm, he has notable pill-rolling tremor to the right upper extremity which she states is chronic Skin: No rash Psychiatric: Pleasant and cooperative Weight Dosing Weight: 59.6 kg (09/13/22) Medications Medications (20) Active Scheduled: (13) amiodarone 200 mg tablet 200 mg 1 tab(s), Oral, qDayM ascorbic acid 500 mg tablet 500 mg 1 tab(s), Oral, qDay aspirin 81 mg EC 81 mg 1 tab(s), Oral, qDay atorvastatin 40 mg tablet 40 mg 1 tab(s), Oral, qHS clopidogrel 75 mg Tablet 75 mg 1 tab(s), Oral, qDay doxycycline hyclate 100 mg Capsule 100 mg 1 cap(s), Oral, BID ferrous sulfate 325 mg Tablet 325 mg 1 tab(s), Oral, qDay folic acid 1 mg tablet 1 mg 1 tab(s), Oral, qDay lamoTRIgine 100 mg tablet 100 mg 1 tab(s), Oral, BID magnesium oxide 400 mg Tablet 400 mg 1 tab(s), Oral, Daily multivitamin tablet 1 tab(s), Oral, Daily primidone 50 mg tablet 100 mg 2 tab(s), Oral, TID thiamine (w/calcium) 100 mg tablet 100 mg 1 tab(s), Oral, Daily Continuous: (0) PRN: (7) acetaminophen 325 mg Tablet 650 mg 2 tab(s), Oral, q4h acetaminophen 325 mg Tablet 650 mg 2 tab(s), Oral, q4h albuterol - ipratropium 2.5 mg-0.5 mg/3 mL Inhal Yamini UD 3 mL, Inhalation, q4hRT guaifenesin 100 mg/5 mL 120 mL liquid 200 mg 10 mL, Oral, q4h melatonin 3 mg tablet 3 mg 1 tab(s), Oral, qHS ondansetron 2 mg/ 1 mL 2 mL INJ 4 mg 2 mL, IV Push, q4h polyethylene glycol 3350 - UD packet 17 gram(s) 15 mL, Oral, qDay Lab Results 09/14 05:24 WBC: 11.2 H Hgb: 13.1 Hct: 39.5 L Platelet: 268 Neutrophil %: 35.1 L Glucose Level: 86 Sodium Level: 138 Potassium Level: 4.3 BUN: 26.0 H Creatinine Lvl (s): 0.93 EKG No qualifying data available. Assessment/Plan 1. Encephalopathy, unclear of etiology, could be related to recent trauma. 2. Hypertension. 3. Smoking. 4. Coronary disease with history of CABG. 5. History of stroke. 6. History of seizure. 7. Scalp laceration from recent fall. 8. Cervical spinal cord stress reaction edema 9. 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 Patient was evaluated by neurology team, EEG and MRI of the brain unremarkable for acute findings, no seizure. MRI of the C-spine noted with stress reaction edema, neurosurgery has been consulted. 2. PT and OT were consulted and cleared for home-going 3. Patient will be continued on his home medication, including Amiodarone, lamotrigine, primidone, atorvastatin, Plavix, and aspirin. 4. Continue to monitor patient clinically as well as his labs. Patient understood his plan of care, updated his daughter Malik via phone. 5. DVT prophylaxis with SCD Patient is full code. Digitally Signed by MARYAM STAFFORD MD on 09/14/2022 05:23 PM [id number] Neurological surgery Consult note Date of Service 09/14/2022 Reason for Consultation MRI C-spine showing stress reaction edema most prominent at C4, and to a lesser degree at C5 and C6. No definite fracture. Moderate C5-6 spinal canal stenosis. Foraminal stenosis (moderate right C4-5, severe bilateral C5-6) Referring Physician Neurology History of Present Illness 67-year-old male with past medical history significant for CAD s/p stent and CABG on aspirin and Plavix, CVA, seizures, tobacco abuse, and history of alcohol abuse who presented to [facility] [place] emergency department 09/13/2022 from [facility] with mental status change. Patient had fallen 20 feet from a ladder approximately 1 week ago and hit his head, which she states was on a tree branch. He reports he sustained some scalp abrasions/lacerations. He denies any loss of consciousness at time of the event, but was taken to outside hospital ([facility]) after the event. There was concern for likely concussion. He was apparently evaluated by neurology and cleared for discharge. But was taken back to the hospital a few days later after the lacerations/abrasions on his scalp opened, and sustained additional laceration while working beneath a car and scraped his head scraped his head against the undercarriage of the car. Underwent laceration repair at outside hospital, and was kept overnight before again being discharged home. Patient reportedly however has had increased confusion, persistent dizziness, c/o headache, and generalized weakness over the last several days, and he was brought back in for evaluation. It is documented that he at some point during prior recent hospitalizations, underwent an MRI of the brain which showed no acute findings, but did show evidence of chronic stroke. Head CT was performed at [facility] which showed no acute findings, and no evidence of acute infarct. CT cervical spine showed no acute fracture or dislocation injuries. Degenerative changes noted, most prominent at C5-6 with central canal and foraminal stenosis. He was transferred over to [facility] for further neurological evaluation due to altered mental status. Patient has been evaluated by neurology team here at [facility] for encephalopathy. Has had no documented or witnessed breakthrough seizures. Continued on antiseizure medications, as well as aspirin andPlavix. EEG, brain and cervical MRIs ordered. EEG showed no interictal epileptiform discharges or electrographic seizures. 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 Cervical spine MRI shows degenerative changes, with osseous and spondylitic changes as wellas moderate severe spinal canal stenosis C5-C6, and foraminal stenosis on the right C4-C5, and moresignificantly bilaterally at C5-C6. Neurosurgery consulted due to C-spine findings. Patient denies any acute neck pain. He also denies any radicular shooting pain down his arms, no upper extremity burning pain. Denies acute paresthesias, but does admit to chronic numbness at his left wrist/forearm which states he has had since prior hospitalization when he had his CABG. Denies dropping objects. Denies gait instability, and states he does not require the use of any assistive devices for ambulation. Denies frequent falls. Has essential tremor of his right upper extremity which is chronic/baseline, and this contributes to difficulty with handwriting. Review of Systems GENERAL: Denies any known recent illnesses, infections, fever, chills, or night sweats. SKIN: Denies skin complaints. Denies pruritus or rashes. HEENT: Denies headache at present time, or dizziness. Denies acute changes in visual acuity. Deniesdiplopia or blurred vision. Denies earaches, changes in hearing, or otorrhea. Denies rhinorrhea or sore throat. MS: Denies acute cervical, thoracic, or lumbar pain. Denies specific complaints of joint pain or swelling. RESPIRATORY: Denies shortness of breath, difficulty breathing or cough. CARDIOVASCULAR: Denies chest pain, pressure, palpitations. GI: Denies abdominal pain, nausea, vomiting. Denies acute changes in bowel movements/habits. : Denies dysuria or hematuria. Denies acute urinary incontinence, or loss of urinary control. NEUROLOGICAL: See HPI. Physical Exam Vitals and Measurements T: 36.4 C (Oral) TMIN: 36.4 C (Oral) TMAX: 37 C (Oral) HR: 58 RR: 18 BP: 114/71 SpO2: 98% Weight Dosing Weight: 59.6 kg (09/13/22) General survey: 67-year-old male, well-developed well-nourished. He is seen resting in bed, awake and alert. He is in no acute distress. Cooperative with exam. Skin: Skin is warm and dry. No rashes. HEENT: Has scalp lacerations with suture closure and dried blood/scabbing at sites. Extraocular movements are intact; no nystagmus or gaze deviation. Pupils are equal and round, and briskly reactive to light. 3 mm in size bilaterally. No otorrhea or rhinorrhea. Oral mucosa is pink and moist. MS: No joint deformities, redness or swelling. No pain with palpation of cervical, thoracic or lumbar midline spine. Cardiovascular: Regular heart rate and rhythm. Normal S1 and S2 present. No peripheral edema. Respiratory: Respirations even and unlabored. Lungs are clear bilaterally. Abdomen: Abdomen is soft, nontender and nondistended with active bowel sounds 4 quadrants. Peripheral vascular: Extremities are warm and without edema. Radial and pedal pulses are 2+ and symmetric. Neurological: Patient is awake, alert and oriented to self and place. He is able to correctly provide the current month, but does have difficulty with the year. States it is 2012. He was reorientedto the current year. His speech is clear and fluent. Face is symmetric. Tongue protrudes midline. Facial sensation is intact symmetrically. He moves all 4 extremities very well, displays strong and equal motor strength of bilateral upper and lower extremities. Has strong and intact bicep, tricep, deltoid, finger intrinsics and hand grasps. Gregorio sign is negative. Light touch sensation is intact to upper and lower extremities, has decreased sensation at the left forearm/wrist which patient states is chronic and unchanged. Right upper extremity tremor, mild at rest, increases with elevation. Lab Results 09/14 05:24 WBC: 11.2 H Hgb: 13.1 Hct: 39.5 L Platelet: 268 Neutrophil %: 35.1 L Glucose Level: 86 Sodium Level: 138 Potassium Level: 4.3 BUN: 26.0 H Creatinine Lvl (s): 0.93 09/13 04:28 WBC: 11.4 H Hgb: 13.5 Hct: 39.9 L Platelet: 295 Neutrophil %: 39.4 L Glucose Level: 125 H Sodium Level: 140 Potassium Level: 4.2 BUN: 16.0 Creatinine Lvl (s): 0.84 Imaging Results and Diagnostics MRI Spine Cervical w/o Contrast Result Date: September 14, 2022 Verified By: KAM DURAN DO CLINICAL STATEMENT: IMPRESSION: Stress reaction edema most prominent at C4, and to a lesser degree at C5 andC6. No definite fracture. Moderate C5-6 spinal canal stenosis. Foraminal stenosis (moderate right C4-5, severe bilateral C5-6). MRI Brain w/o Contrast Result Date: September 14, 2022 Verified By: KAM DURAN DO CLINICAL STATEMENT: IMPRESSION: No acute intracranial abnormality. 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 Assessment/Plan Cervical stenosis Patient suffered recent fall off a ladder approximately from 20-feet, 1 week ago, striking his headon a tree branch. Denies LOC. Suffered a scalp laceration/abrasions. Several days later then scraped his scalp on undercarriage of a car while working on it. Had lacerations repaired with suture closure at outside hospital, [facility]. Evaluated there after these injuries on 2 separate occasions, and was kept for observation. Concern for likely concussion. Was evaluated by neurology and scheduled for outpatient follow-up. Was brought to [facility] 09/12/2022 due to family concerns of patient with increased confusion, persistent dizziness, complaints of headache, generalized weakness over the last several days. Head CT at [facility] showed no acute findings, and no evidence of acute infarct. CT cervical spine showed no acute fracture or dislocation injuries. Degenerative changes noted, most prominent at C5-6 with central canal and foraminal stenosis. Patient was transferred to [facility] for further neurological evaluation due to alteredmental status. Here, underwent EEG, brain MRI and cervical spine MRI. EEG showed no interictal epileptiform discharges or electrographic seizures. Brain MRI with no acute intracranial abnormalities; chronic right parietooccipital encephalomalaciapresent from prior infarction. Cervical spine MRI shows degenerative changes, with osseous and spondylitic changes as well as moderate severe spinal canal stenosis C5-C6, and foraminal stenosis on the right C4-C5, and more significantly bilaterally at C5-C6. Neurosurgery consulted for C-spine findings. Patient is not myelopathic on exam. He denies any acute neck pain, or upper extremity symptoms. Denies dropping objects. Denies gait instability/falls. Discussed case over telephone with on-call neurosurgeon, Dr Hernandez who has reviewed cervical MRI and provides patient has degenerative changes of the cervical spine, which is causing osseous and spondylotic changes. Also with severe central canal stenosis at C5-C6. However, given he is not myelopathic, there is no urgent or emergent neurosurgical intervention warranted at this time. Patient will be personally assessed and reviewed by Dr. Hernandez, and further recommendations may be made at that time; please refer to Dr. Hernandez's addendum for additional neurosurgical input and recommendations. Problem List/Past Medical History Ongoing No qualifying data Historical No qualifying data Procedure/Surgical History No qualifying data available. Medications Inpatient amiodarone, 200 mg= 1 tab(s), Oral, qDayM aspirin 81 mg oral delayed release tablet, 81 mg= 1 tab(s), Oral, qDay atorvastatin, 40 mg= 1 tab(s), Oral, qHS clopidogrel, 75 mg= 1 tab(s), Oral, qDay Daily Tin, 1 tab(s), Oral, Daily doxycycline, 100 mg= 1 cap(s), Oral, BID DuoNeb, 3 mL, Inhalation, q4hRT, PRN ferrous sulfate, 325 mg= 1 tab(s), Oral, qDay folic acid, 1 mg= 1 tab(s), Oral, qDay guaiFENesin, 200 mg= 10 mL, Oral, q4h, PRN lamoTRIgine 100 mg oral tablet, 100 mg= 1 tab(s), Oral, BID magnesium oxide, 400 mg= 1 tab(s), Oral, Daily melatonin, 3 mg= 1 tab(s), Oral, qHS, PRN Miralax Powder Packet, 17 gram(s)= 15 mL, Oral, qDay, PRN primidone, 100 mg= 2 tab(s), Oral, TID thiamine, 100 mg= 1 tab(s), Oral, Daily Tylenol, 650 mg= 2 tab(s), Oral, q4h, PRN Tylenol, 650 mg= 2 tab(s), Oral, q4h, PRN Vitamin C, 500 mg= 1 tab(s), Oral, qDay Zofran, 4 mg= 2 mL, IV Push, q4h, PRN Home acetaminophen 500 mg oral capsule, 1000 mg= 2 cap(s), Oral, q4h, PRN amiodarone 200 mg oral tablet, 200 mg= 1 tab(s), Oral, qDayM aspirin 81 mg oral delayed release tablet, 81 mg= 1 tab(s), Oral, qDay atorvastatin 40 mg oral tablet, 40 mg= 1 tab(s), Oral, qHS clopidogrel 75 mg oral tablet, 75 mg= 1 tab(s), Oral, qDay Daily Tin oral tablet, 1 tab(s), Oral, Daily doxycycline hyclate 100 mg oral capsule, 100 mg= 1 cap(s), Oral, BID ferrous sulfate 325 mg (65 mg elemental iron) oral delayed release tablet, 325 mg= 1 tab(s), Oral, qDay folic acid 1 mg oral tablet, 1 mg= 1 tab(s), Oral, qDay lamoTRIgine 100 mg oral tablet, 100 mg= 1 tab(s), Oral, BID magnesium oxide 400 mg oral tablet, 400 mg= 1 tab(s), Oral, Daily ondansetron 4 mg oral tablet, 4 mg= 1 tab(s), Oral, q6h, PRN primidone 50 mg oral tablet, 100 mg= 2 tab(s), Oral, TID thiamine 100 mg oral tablet, 100 mg= 1 tab(s), Oral, Daily Vitamin C 500 mg oral tablet, 500 mg= 1 tab(s), Oral, qDay Allergies No Known Medication Allergies Social History Patient lives at home, is typically independent at baseline. Immunizations No qualifying data available. Digitally Signed by HARI ASHLEY on 09/14/2022 04:04 PM [id number] Note ORIGINAL EXAMINATION: MRI OF THE CERVICAL SPINE WITHOUT CONTRAST 09/14/2022 9:56 am TECHNIQUE: Multiplanar multisequence MRI of the cervical spine was performed without the administration of intravenous contrast. COMPARISON: 09/12/2022 HISTORY: ORDERING SYSTEM PROVIDED HISTORY: Reason for Exam: neck pain, stenosis Fell off a ladder on 2 weeks ago, neck pain FINDINGS: Motion artifacts obscure some details. BONES/ALIGNMENT: Mild reversal of the cervical lordosis centered at C4. Minimal degenerative retrolisthesis from C4 through C6. Degenerative vertebral height loss is most prominent from C4 through C6. Marrow edema is most prominent at C4 vertebral body extending to the left greater than right pedicle regions. Marrow edema is less conspicuous at C5 and C6. A T2 hyperintense base of dens cyst appeared multiloculated on recent CT. SPINAL CORD: No abnormal cord signal is seen. SOFT TISSUES: Left T1-2 and much smaller right C6-7 and C7-T1 perineural sleeve cysts. Otherwise no paraspinal mass identified. Major included vascular T2 flow voids are maintained. DEGENERATIVE: Multilevel disc osteophyte complexes and uncovertebral and facet arthropathy. Ligamentum flavum hypertrophy is most prominent at from C5 through C7. C2-C3: No stenosis C3-C4: Flattened anterior thecal sac without central spinal stenosis. [id number] left and mild right foraminal stenosis. C4-C5: Mild spinal canal stenosis. Moderate right and mild left foraminal stenosis. C5-C6: Moderate spinal canal stenosis. Severe bilateral foraminal stenosis. C6-C7: Patent spinal canal. Mild to moderate bilateral foraminal stenosis. C7-T1: No stenosis. IMPRESSION: Stress reaction edema most prominent at C4, and to a lesser degree at C5 and C6. No definite fracture. Moderate C5-6 spinal canal stenosis. Foraminal stenosis (moderate right C4-5, severe bilateral C5-6). Interpreted by: Kam Duran DO Preliminary Report By: Kam Duran DO Electronically signed By Kam Duran DO Dictated Date: 09/14/2022 1:53:49 PM Prelim Date: 09/14/2022 2:18:22 PM Sign Date: 09/14/2022 2:18:22 PM Ordering Provider: [facility]06-13-2023 Note ORIGINAL EXAMINATION: MRI OF THE BRAIN WITHOUT CONTRAST 09/14/2022 9:30 am TECHNIQUE: Multiplanar multisequence MRI of the brain was performed without the administration of intravenous contrast. COMPARISON: 09/12/2022 HISTORY: ORDERING SYSTEM PROVIDED HISTORY: Reason for Exam: AMS Neck and head injury, patient fell off ladder a few weeks ago, often on confusion, head and neck pain, prior open heart with 4 stents a year ago, history of stroke and seizures, confusion FINDINGS: INTRACRANIAL STRUCTURES/VENTRICLES: No abnormal restricted diffusion to suggest hyperacute, acute, or subacute infarction. No mass effect or midline shift. No evidence of an acute intracranial hemorrhage. Right parieto-occipital region encephalomalacia associated with few foci of hemosiderin deposition probably from previously hemorrhagic converted infarction. Mild compensatory dilatation of the right occipital horn. Mild involutional changes. Few scattered periventricular subcortical white matter FLAIR hyperintensities are nonspecific but statistically most consistent with mild chronic microvascular angiopathy. The sellar/suprasellar regions appear unremarkable. The normal signal voids within the major intracranial vessels appear maintained. ORBITS: The visualized portion of the orbits demonstrate no acute abnormality. SINUSES: Right maxillary and right sphenoid sinus retention cysts. BONES/SOFT TISSUES: The bone marrow signal intensity appears normal. The soft tissues demonstrate no acute abnormality. IMPRESSION: No acute intracranial abnormality. 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 Interpreted by: Kam Duran DO Preliminary Report By: Kam Duran DO Electronically signed By Kam Duran DO Dictated Date: 09/14/2022 1:49:47 PM Prelim Date: 09/14/2022 1:53:34 PM Sign Date: 09/14/2022 1:53:34 PM Ordering Provider: [facility]06-13-2023 Neurology Progress note Date of Service 09/14/22 Chief Complaint AMS Subjective Pt appears neurologically improved today. Bedside RN reports no acute problems overnight, no concerns for seizure-like activity. That he looks much better compared to yesterday when he took care of him. Today he is much more alert, interactive with myself and staff is able to state his name, that he is at hospital, September and provide details for what brought him into the hospital. Reports at home no concerning signs for seizure, unresponsive episodes, incontinence. At his baseline has a essentialtremor his right hand is unchanged from his baseline per patient will worsen with movement. He reports deficits from his old stroke, unsure when he last had stroke but said many years ago. Reports numbness in his left arm but says this is ongoing from when he left [facility] as they tried to put IV in [place] and he thinks they hit a nerve because it hasn't gotten any better. Reports he denies any complaints of lightheaded, dizziness, headaches, vision disturbances, weakness, nausea, vomit ing or swallowing issues. Objective Vitals and Measurements T: 36.4 C (Oral) TMIN: 36.4 C (Oral) TMAX: 37 C (Oral) HR: 57(Apical) RR: 18 BP: 108/61 SpO2: 98% Intake and Output 7AM Yesterday to 7AM Today Intake and Output (Last 24 hours) Intake Output Urine Voided 800.00 Total Summary Total Intake 0.00 Total Output 800.00 Fluid Balance -800.00 Physical Exam General Examination: conscious, alert, oriented, AoA x2 HEENT: normocephalic, pupils BERL, scalp lacerations present Heart: normal S1 S2 Lungs: Bilateral air entry present Abdomen: bowel sounds present Psychiatry: Denies Anxiety, depression or suicidal ideations at present Neuro: Conscious, alert, oriented AoA x3 CN II-XII normal, no Nystagmus, EOMI, pupils BERL, No facial sensory loss, no facial asymmetry, tongue protrudes in midline, no uvula deviation, normal shoulder shrug, Power 5/5 B/L UE and LE, tone normal all 4 extremities, No tremors, No pronator drift, Reflexes + B/S/T/K/A, Plantars B/L flexor, No cerebellar signs, Romberg s deferred, reports decreased sensation in lower naveed to light touch otherwise WNL, gait deferred, No frontal release signs. Mildright hand resting tremor, No NR, No Kernig s sign, No Brudzinski s sign Weight Dosing Weight: 59.6 kg (09/13/22) Medications Medications (20) Active Scheduled: (13) amiodarone 200 mg tablet 200 mg 1 tab(s), Oral, qDayM ascorbic acid 500 mg tablet 500 mg 1 tab(s), Oral, qDay aspirin 81 mg EC 81 mg 1 tab(s), Oral, qDay atorvastatin 40 mg tablet 40 mg 1 tab(s), Oral, qHS clopidogrel 75 mg Tablet 75 mg 1 tab(s), Oral, qDay doxycycline hyclate 100 mg Capsule 100 mg 1 cap(s), Oral, BID ferrous sulfate 325 mg Tablet 325 mg 1 tab(s), Oral, qDay folic acid 1 mg tablet 1 mg 1 tab(s), Oral, qDay lamoTRIgine 100 mg tablet 100 mg 1 tab(s), Oral, BID magnesium oxide 400 mg Tablet 400 mg 1 tab(s), Oral, Daily multivitamin tablet 1 tab(s), Oral, Daily primidone 50 mg tablet 100 mg 2 tab(s), Oral, TID thiamine (w/calcium) 100 mg tablet 100 mg 1 tab(s), Oral, Daily Continuous: (0) PRN: (7) acetaminophen 325 mg Tablet 650 mg 2 tab(s), Oral, q4h acetaminophen 325 mg Tablet 650 mg 2 tab(s), Oral, q4h albuterol - ipratropium 2.5 mg-0.5 mg/3 mL Inhal Yamini UD 3 mL, Inhalation, q4hRT guaifenesin 100 mg/5 mL 120 mL liquid 200 mg 10 mL, Oral, q4h melatonin 3 mg tablet 3 mg 1 tab(s), Oral, qHS ondansetron 2 mg/ 1 mL 2 mL INJ 4 mg 2 mL, IV Push, q4h polyethylene glycol 3350 - UD packet 17 gram(s) 15 mL, Oral, qDay Lab Results 09/14 05:24 WBC: 11.2 H Hgb: 13.1 Hct: 39.5 L Platelet: 268 Neutrophil %: 35.1 L Glucose Level: 86 Sodium Level: 138 Potassium Level: 4.3 BUN: 26.0 H Creatinine Lvl (s): 0.93 09/13 04:28 WBC: 11.4 H Hgb: 13.5 Hct: 39.9 L Platelet: 295 Neutrophil %: 39.4 L Glucose Level: 125 H Sodium Level: 140 Potassium Level: 4.2 BUN: 16.0 Creatinine Lvl (s): 0.84 Imaging Results and Diagnostics MRI Spine Cervical w/o Contrast Result Date: September 14, 2022 Verified By: KAM DURAN DO CLINICAL STATEMENT: IMPRESSION: Stress reaction edema most prominent at C4, and to a lesser degree at C5 andC6. No definite fracture. Moderate C5-6 spinal canal stenosis. Foraminal stenosis (moderate right C4-5, severe bilateral C5-6). MRI Brain w/o Contrast Result Date: September 14, 2022 Verified By: KAM DURAN DO CLINICAL STATEMENT: IMPRESSION: No acute intracranial abnormality. 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 Assessment/Plan 67 yr M with PMH HLD, H/O stroke per pt no deficits, H/O seizures, Essential tremors, CAD, s/p stent/CABG, H/O ETOH abuse admitted with AMS. History obtained from medical records and documentation aswell as from patient. Patient is a poor historian. Upon admission, Per patient he fell from the ladder about a week ago, Per documentation he was taken to [facility] as he subsequently was under a car working on it when he scraped his head and therefore again was taken to [facility] forevaluation. He had work-up including MRI brain which showed chronic stroke but nothing acute, Per documentation has been having confusion over the last few days, following which he was initially admitted to [facility] and then transferred to [place] for further evaluation on 09/13, no documented or witnessed seizures. Per patient his last seizure was in April this year. Per patient he doesnot know which seizure medications he is on, per patient it is given to him by nursing aid, per documentation patient is on Lamictal 100 mg BID, Primidone 100 mg TID, and is on ASA/Plavix at baselinefrom Cardiology standpoint. BP on admission was 113/[address] head reported nothing acute. CT C spine showed no fracture, degenerative changes at C5-C6. Impressions: AMS Likely Toxic/Metabolic encephalopathy H/O stroke/seizures H/O ETOH abuse Plan: -MRI brain w/o contrast showed no acute intracranial abnormality. 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 -MRI C spine per radiology recommendations, showed Stress reaction edema most prominent at C4, and to a lesser degree at C5 andC6. No definite fracture. Moderate C5-6 spinal canal stenosis. Foraminalstenosis (moderate right C4-5, severe bilateral C5-6). Would recommend neurosurgery consultation, will defer management to neurosurgery. -EEG reviewed showed no interictal epileptiform discharges or electrographic seizures noted -Labs reviewed. Drug screen negative. -on Lamictal 100 mg BID and Primidone 100 mg TID. Continue home dose -On Thiamine -On ASA/Plavix at baseline from Cardiology standpoint, defer duration to hospitalist team/Cardiology. Bleeding risks present. -W/F ETOH withdrawal -Patient counseled to be compliant with AEDs -Avoid medications like Wellbutrin, Tramadol, antibiotics like Meropenem/Cefepime which can lower seizure threshold. Per patient he does not drive. -GI/DVT prophylaxis -PT/OT/ST -Fall precautions -Further medical management per medical team -Case discussed with hospitalist medical team -Patient counseled the risks and health hazards of smoking, excessive alcohol intake, marijuana/cocaine/drug abuse and patient counseled not to smoke cigarettes, drink excessive alcohol as well as not to smoke marijuana. Patient understands the same. -Follow up with Neurology in 4-6 weeks as outpatient -All questions were answered -Plan discussed with pt agrees with plan Discussed plan with collaborating physician, who agrees with plan Independently spent 40 min patient -Will we sign off no further workup needed on a neurological standpoint. Please call with questionsif any in the interim. Thank you for allowing us to participate in patients care and management. Digitally Signed by RADHA SUNG on 09/14/2022 12:12 PM Digitally Signed by RADHA SUNG on 09/14/2022 02:19 PM Digitally Signed by RADHA SUNG on 09/14/2022 02:36 PM [id number] Note. MICRO - Microbiology PROCEDURE: Urine Culture [*1] SOURCE: Urine BODY SITE: COLLECTED DATE/TIME: 09/12/2022 15:21 EDT RECEIVED DATE/TIME: 09/13/2022 14:01 EDT START DATE/TIME: 09/13/2022 14:01 EDT FREE TEXT SOURCE: FINAL REPORTS Final Report [] Verified Date/Time/Personnel: 09/14/2022 08:59 EDT <10,000 cfu/ml. No Significant growth. Sensitivity not indicated. PRELIMINARY REPORTS Preliminary Report [] Verified Date/Time/Personnel: 09/14/2022 08:52 EDT No growth to date Performing Locations *1: This test was performed at: [facility], [address] [place] [address], [facility]- , [facility] ([place])09-14-2022 Note ORIGINAL EXAMINATION: MRI OF THE CERVICAL SPINE WITHOUT CONTRAST 09/14/2022 9:56 am TECHNIQUE: Multiplanar multisequence MRI of the cervical spine was performed without the administration of intravenous contrast. COMPARISON: 09/12/2022 HISTORY: ORDERING SYSTEM PROVIDED HISTORY: Reason for Exam: neck pain, stenosis Fell off a ladder on 2 weeks ago, neck pain FINDINGS: Motion artifacts obscure some details. BONES/ALIGNMENT: Mild reversal of the cervical lordosis centered at C4. Minimal degenerative retrolisthesis from C4 through C6. Degenerative vertebral height loss is most prominent from C4 through C6. Marrow edema is most prominent at C4 vertebral body extending to the left greater than right pedicle regions. Marrow edema is less conspicuous at C5 and C6. A T2 hyperintense base of dens cyst appeared multiloculated on recent CT. SPINAL CORD: No abnormal cord signal is seen. SOFT TISSUES: Left T1-2 and much smaller right C6-7 and C7-T1 perineural sleeve cysts. Otherwise no paraspinal mass identified. Major included vascular T2 flow voids are maintained. DEGENERATIVE: Multilevel disc osteophyte complexes and uncovertebral and facet arthropathy. Ligamentum flavum hypertrophy is most prominent at from C5 through C7. C2-C3: No stenosis C3-C4: Flattened anterior thecal sac without central spinal stenosis. [id number] left and mild right foraminal stenosis. C4-C5: Mild spinal canal stenosis. Moderate right and mild left foraminal stenosis. C5-C6: Moderate spinal canal stenosis. Severe bilateral foraminal stenosis. C6-C7: Patent spinal canal. Mild to moderate bilateral foraminal stenosis. C7-T1: No stenosis. IMPRESSION: Stress reaction edema most prominent at C4, and to a lesser degree at C5 and C6. No definite fracture. Moderate C5-6 spinal canal stenosis. Foraminal stenosis (moderate right C4-5, severe bilateral C5-6). Interpreted by: Kam Duran DO Preliminary Report By: Kam Duran DO Electronically signed By Kam Duran DO Dictated Date: 09/14/2022 1:53:49 PM Prelim Date: 09/14/2022 2:18:22 PM Sign Date: 09/14/2022 2:18:22 PM Ordering Provider: [facility]06-13-2023 Note Date of Service 09/14/2022 Date Read 09/14/2022 EEG Report Indication Assess for epileptiform activity. EEG Description EEG with 10-20 lead placement system. Photic stimulation was performed. The posterior dominant rhythm was 9 Hz synchronous, symmetric, reactive. Photic stimulation produced no unexpected EEG changes. Sleep was identified. There is no abnormal background slowing noted. Nointerictal epileptiform discharges or electrographic seizures noted during the record. Artefact noted during the entire record, study limited by the same. Impression This is a normal awake and asleep EEG. No interictal epileptiform discharges or electrographic seizures noted during the record. The lack of epileptiform activity does not conclusively rule out a seizure disorder. If clinically indicated, a repeat study with prolonged sampling may have higher sensitivity for detecting interictal discharges. Digitally Signed by BRIANNA LEDEZMA MD on 09/14/2022 09:29 AM [id number] Note ORIGINAL EXAMINATION: MRI OF THE BRAIN WITHOUT CONTRAST 09/14/2022 9:30 am TECHNIQUE: Multiplanar multisequence MRI of the brain was performed without the administration of intravenous contrast. COMPARISON: 09/12/2022 HISTORY: ORDERING SYSTEM PROVIDED HISTORY: Reason for Exam: AMS Neck and head injury, patient fell off ladder a few weeks ago, often on confusion, head and neck pain, prior open heart with 4 stents a year ago, history of stroke and seizures, confusion FINDINGS: INTRACRANIAL STRUCTURES/VENTRICLES: No abnormal restricted diffusion to suggest hyperacute, acute, or subacute infarction. No mass effect or midline shift. No evidence of an acute intracranial hemorrhage. Right parieto-occipital region encephalomalacia associated with few foci of hemosiderin deposition probably from previously hemorrhagic converted infarction. Mild compensatory dilatation of the right occipital horn. Mild involutional changes. Few scattered periventricular subcortical white matter FLAIR hyperintensities are nonspecific but statistically most consistent with mild chronic microvascular angiopathy. The sellar/suprasellar regions appear unremarkable. The normal signal voids within the major intracranial vessels appear maintained. ORBITS: The visualized portion of the orbits demonstrate no acute abnormality. SINUSES: Right maxillary and right sphenoid sinus retention cysts. BONES/SOFT TISSUES: The bone marrow signal intensity appears normal. The soft tissues demonstrate no acute abnormality. IMPRESSION: No acute intracranial abnormality. 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 Interpreted by: Kam Duran DO Preliminary Report By: Kam Duran DO Electronically signed By Kam Duran DO Dictated Date: 09/14/2022 1:49:47 PM Prelim Date: 09/14/2022 1:53:34 PM Sign Date: 09/14/2022 1:53:34 PM [facility] Note Subjective: Patient seen for encephalopathy Please refer to the H&P from earlier today for patient's presentation and history of present illness patient was examined and evaluated today, patient denies chest pain, no shortness of breath, no cough, no fever or chills, no abdominal pain, no nausea or vomiting, no headache, tolerating po well, bowel movement is normal, he is weak tired and fatigued, he is still forgetful to the time, not oriented to time however he is oriented to place and person or Vitals Signs(Last 24 hrs)__Last Charted Minimum Maximum Temp36.7(SEP 13:59)36.7(SEP 13:59)37.1(SEP 13 00:06) Heart RateH 112(SEP 13:59)65(SEP 13 07:01)H 112(SEP 13:59) Resp Rate18(SEP 13:59)18(SEP 13:06)18(SEP 13:06) TIF669(SEP 13:59)92(SEP 13 02:38)124(SEP 13 00:06) DBP81(SEP 13:59)L 57(SEP 13 07:)81(SEP 13:59) Physical examination: HEENT, is normocephalic, 2 lacerations on the scalp with stitches, no drainage, pupils are equal, no pallor Neck supple no JVD Lungs clear to auscultation bilaterally, no wheezes, no rhonchi, no accessory muscle use Heart S1-S2 regular Abdomen soft nontender nondistended bowel sounds are present all 4 quadrants Lower extremities show no edema, no cyanosis, pulses palpable +2 bilaterally Skin showed no rash Neurological examination patient is awake alert and oriented to place and person but not to time. Assessment and plan: 1. Encephalopathy, unclear of etiology, could be related to recent trauma. 2. Hypertension. 3. Smoking. 4. Coronary disease with history of CABG. 5. History of stroke. 6. History of seizure. 7. Scalp laceration from recent fall. Plan: 1. Patient was evaluated by neurology team, EEG and MRI of the brain and MRI of the cervical spine were recommended. 2. PT and OT were consulted will follow the recommendations. 3. Patient will be continued on his home medication, including Amiodarone, lamotrigine, primidone, atorvastatin, Plavix, and aspirin. 4. Continue to monitor patient clinically as well as his labs. Patient understood his plan of care I did talk to his daughter Krunal updated her about his condition all her questions were answered. Labs: Basic Metabolic Profile Glucose Level: 125 mg/dL High (09/13/22 04:28:00) Sodium Level: 140 mEq/L (09/13/22 04:28:00) Potassium Level: 4.2 mEq/L (09/13/22 04:28:00) Chloride: 110 mEq/L (09/13/22 04:28:00) CO2: 30 mEq/L (09/13/22 04:28:00) BUN/Creatinine Ratio: 19 ratio (09/13/22 04:28:00) Complete Blood Count WBC: 11.4 10^3/mcL High (09/13/22 04:28:00) RBC: 4 10^6/mcL Low (09/13/22 04:28:00) Hgb: 13.5 G/dL (09/13/22 04:28:00) Hct: 39.9 % Low (09/13/22 04:28:00) MCV: 99.9 fL (09/13/22 04:28:00) MCH: 33.8 pg High (09/13/22 04:28:00) MCHC: 33.8 G/dL (09/13/22 04:28:00) RDW: 13.2 % (09/13/22 04:28:00) Platelet: 295 10^3/mcL (09/13/22 04:28:00) MPV: 8.4 fL (09/13/22 04:28:00) Medications (20) Active Scheduled: (13) amiodarone 200 mg tablet 200 mg 1 tab(s), Oral, qDayM ascorbic acid 500 mg tablet 500 mg 1 tab(s), Oral, qDay aspirin 81 mg EC 81 mg 1 tab(s), Oral, qDay atorvastatin 40 mg tablet 40 mg 1 tab(s), Oral, qHS clopidogrel 75 mg Tablet 75 mg 1 tab(s), Oral, qDay doxycycline hyclate 100 mg Capsule 100 mg 1 cap(s), Oral, BID ferrous sulfate 325 mg Tablet 325 mg 1 tab(s), Oral, qDay folic acid 1 mg tablet 1 mg 1 tab(s), Oral, qDay lamoTRIgine 100 mg tablet 100 mg 1 tab(s), Oral, BID magnesium oxide 400 mg Tablet 400 mg 1 tab(s), Oral, Daily multivitamin tablet 1 tab(s), Oral, Daily primidone 50 mg tablet 100 mg 2 tab(s), Oral, TID thiamine (w/calcium) 100 mg tablet 100 mg 1 tab(s), Oral, Daily Continuous: (0) PRN: (7) acetaminophen 325 mg Tablet 650 mg 2 tab(s), Oral, q4h acetaminophen 325 mg Tablet 650 mg 2 tab(s), Oral, q4h albuterol - ipratropium 2.5 mg-0.5 mg/3 mL Inhal Yamini UD 3 mL, Inhalation, q4hRT guaifenesin 100 mg/5 mL 120 mL liquid 200 mg 10 mL, Oral, q4h melatonin 3 mg tablet 3 mg 1 tab(s), Oral, qHS ondansetron 2 mg/ 1 mL 2 mL INJ 4 mg 2 mL, IV Push, q4h polyethylene glycol 3350 - UD packet 17 gram(s) 15 mL, Oral, qDay Signature: Silver Kelley MD Digitally Signed by SILVER KELLEY MD on 09/13/2022 02:47 PM [facility] [id number] Evaluation + Plan noteExtracted from: Title:Clinical Document Author:JUHI PUENTES MD Date:09/13/22 [place] [facility] Hospitalist History and Physical Date of Admission: 09/13/2022 Chief complaint: Change in mental status History of present illness: History is entirely taken from reviewing medical records. Cannot obtain any history from the patient due to his mental status. Patient was excepted as a transfer from [place] emergency department by my colleague. Patient has a past medical history of tobacco abuse, alcohol abuse per records no longer drinks alcohol, coronary artery disease status post stent and CABG, stroke, seizures. Patient was taken to [place] emergency department due to having a change in mental status. Reportedly around 1 week ago the patient fell 20 feet from a ladder and hitting his head. He was then taken to [facility] where they did a work-up including MRI of the brain which showed chronic stroke but nothing acute. They also did a CT of the cervical spine which did not show any concerning finding. Patient was evaluated by neurology and was cleared for discharge. He also subsequently was under a car working on a car when he scraped his head and therefore again was taken to [facility] for evaluation. On his first fall he did develop a scalp laceration and then developed another 1 with the car injury. The lacerations were stitched and the patient was discharged home. Over the last several days the patient has been very confused and therefore they took him to the emergency room for evaluation. They have not noted any seizure-like activity or strokelike symptoms. He basically is just very weak and very confused. Since arriving here the patient knows his name but otherwise is not oriented to situation or place. He moves all extremities spontaneously. However he did not follow commands and is very weak. He did not have any slurred speech or facial droop. He denied a headache. Since presenting to the emergency room the patient has been afebrile, hemodynamically stable, 99% room air. Labs and imaging of note: CBC within normal limits Urinalysis not concerning for infection BMP within normal limits CT head without contrast showed remote right cerebellar infarct otherwise no concerning finding. CT cervical spine without contrast did not show any acute fracture or dislocation. Show degenerative changes most prominent at C5-C6 with central canal and foraminal stenosis. Past medical history: History of CVA (cerebrovascular accident) without residual deficits History of seizure disorder Family history: Not able to obtain due to his mental status Social history: No longer drinks alcohol. Smokes a pack of cigarettes a day. Medications: Medications were not verified by pharmacy at the time of this dictation Allergies: No Known Medication Allergies Review of systems: See HPI for pertinent positives and negatives. All other review of systems have been reviewed and they are negative. 36.6, 58, 16, 105/63, 99% room air. Physical examination: HEENT: No Pallor, No Icterus. Scalp laceration status post stitching Cardiac: RRR, No murmur Lungs: CTA, good air entry Abdomen: Soft Non tender Musculoskeletal: No joint pains or swelling Extremities: No edema, good pulses Neurological: Alert and moves all extremities spontaneously. However he is very confused and not following commands. Oriented only to self. Skin: No rash, no nodules Labs: As mentioned in HPI Assessment and plan: Patient was excepted as a transfer from [facility] emergency room by my colleague on 09/13/2022 for further work-up and treatment of encephalopathy. Encephalopathy. Does not appear to be infectious related. The patient has been afebrile and does not have a leukocytosis. Could be secondary to concussion from recent fall where he fell 20 feet onto his head. Recent MRI of the brain at [facility] showed remote stroke but no acute stroke. Does have a history of seizures but has not had any seizure-like activity. We will do a metabolic work-up. Will be on heart monitor. We will consult neurology for further work-up and recommendations. Hypertension. Continue home medications with holding parameters Tobacco abuse. Patient declined nicotine patch Coronary artery disease status post stent and CABG. Continue antiplatelet therapy Stroke. Continue home medications Seizures. Continue home medications Scalp lacerations from recent fall. Follow-up outpatient Prophylaxis SCDs CODE STATUS full code Future Appointments Appointment Date:10/13/2022 02:15:00 PM Scheduled Provider:SANTA ROJAS MD Location:NEUROS Appointment Type:[facility] 06-12-2023 Neurology Consult note Date of Service 09/13/2022 Reason for Consultation AMS Referring Physician Dr. Kelley History of Present Illness 67 yr M with PMH HLD, H/O stroke, H/O seizures, Essential tremors, CAD, s/p stent/CABG, H/O ETOH abuse admitted with AMS. History obtained from medical records and documentation as well as from patient. Patient is a poor historian. Per patient he fell from the ladder about a week ago, Per documentation he was taken to [facility] where he had work-up including MRI brain which showed chronic stroke but nothing acute, Per documentation has been having confusion over the last few days, following which he was initially admitted to [facility] and then transferred to [place] for furtherevaluation, no documented or witnessed seizures. Per patient his last seizure was in April this year. Per patient he does not know which seizure medications he is on, per patient it is given to himby nursing aid, per documentation patient is on Lamictal 100 mg BID, Primidone 100 mg TID, and is on ASA/Plavix at baseline from Cardiology standpoint. BP on admission was 113/[address] head reported nothing acute. CT C spine showed no fracture, degenerative changes at C5-C6. At present patient denies any new onset focal neurological deficits, sensory loss, speech disturbances, visual disturbances, GANN or dizziness. Review of Systems Complete ROS negative except as documented in HPI. Physical Exam Vitals and Measurements T: 36.7 C (Oral) TMIN: 36.6 C (Oral) TMAX: 37.1 C (Oral) HR: 112(Apical) RR: 18 BP: 118/81 SpO2: 92% HT: 182.9 cm WT: 59.6 kg BMI: 17.82 Weight Dosing Weight: 59.6 kg (09/13/22) General Examination: conscious, alert, oriented, AoA x2 HEENT: normocephalic, pupils BERL, scalp lacerations present Heart: normal S1 S2 Lungs: Bilateral air entry present Abdomen: bowel sounds present Psychiatry: Denies Anxiety, depression or suicidal ideations at present Neuro: Conscious, alert, oriented AoA x2, CN II-XII normal, no Nystagmus, EOMI, pupils BERL, No facial sensory loss, no facial asymmetry, tongue protrudes in midline, no uvula deviation, normal shoulder shrug, Power 5/5 B/L UE and LE, tone normal all 4 extremities, No tremors, No pronator drift, Reflexes + B/S/T/K/A, Plantars B/L flexor, No cerebellar signs, Romberg s deferred, No sensory loss tolight touch/temperature, gait deferred, No frontal release signs. No involuntary movements, No NR, No Kernig s sign, No Brudzinski s sign Lab Results 09/13 04:28 WBC: 11.4 H Hgb: 13.5 Hct: 39.9 L Platelet: 295 Neutrophil %: 39.4 L Glucose Level: 125 H Sodium Level: 140 Potassium Level: 4.2 BUN: 16.0 Creatinine Lvl (s): 0.84 Imaging Results and Diagnostics 09/12/[address] CT C spine IMPRESSION: No acute fracture or dislocation is seen. Degenerative changes most prominent at C5-6 with central canal and foraminal stenosis. If clinical symptoms suggest injury to the cord, MRI should be considered since CT is quite insensitive for cord injury and intraspinal hemorrhage. EKG EC09/13/22: SINUS RHYTHM PROBABLE LEFT ATRIAL ENLARGEMENT INCOMPLETE RBBB AND LAFB NONSPECIFIC T ABNORMALITIES, LATERAL LEADS Electronic Signature: LA NENA PALOMINO MD 09/13/2022 08:59:52 Assessment/Plan 67 yr M with PMH HLD, H/O stroke, H/O seizures, Essential tremors, CAD, s/p stent/CABG, H/O ETOH abuse admitted with AMS. History obtained from medical records and documentation as well as from patient. Patient is a poor historian. Per patient he fell from the ladder about a week ago, Per documentation he was taken to [facility] where he had work-up including MRI brain which showed chronic stroke but nothing acute, Per documentation has been having confusion over the last few days, following which he was initially admitted to [facility] and then transferred to [place] for furtherevaluation, no documented or witnessed seizures. Per patient his last seizure was in April this year. Per patient he does not know which seizure medications he is on, per patient it is given to himby nursing aid, per documentation patient is on Lamictal 100 mg BID, Primidone 100 mg TID, and is on ASA/Plavix at baseline from Cardiology standpoint. BP on admission was 113/[address] head reported nothing acute. CT C spine showed no fracture, degenerative changes at C5-C6. Impressions: AMS Likely Toxic/Metabolic encephalopathy H/O stroke/seizures H/O ETOH abuse Plan: -MRI brain w/o contrast -MRI C spine per radiology recommendations -EEG -Labs reviewed. check drug screen -on Lamictal 100 mg BID and Primidone 100 mg TID. Continue home dose -On Thiamine -On ASA/Plavix at baseline from Cardiology standpoint, defer duration to hospitalist team/Cardiology. Bleeding risks present. -W/F ETOH withdrawal -Seizure precautions -Patient counseled to be compliant with AEDs -Avoid medications like Wellbutrin, Tramadol , antibiotics like Meropenem/Cefepime which can lower seizure threshold -Per patient he does not drive. -GI/DVT prophylaxis -PT/OT/ST -Fall precautions -Further medical management per medical team -Case discussed with hospitalist medical team -Patient counseled the risks and health hazards of smoking, excessive alcohol intake, marijuana/cocaine/drug abuse and patient counseled not to smoke cigarettes, drink excessive alcohol as well as not to smoke marijuana. Patient understands the same. -Follow up with Neurology in 4-6 weeks as outpatient -Please call with questions if any. -Thank you for allowing us to participate in patients care and management. -All questions were answered -Will follow MRI brain and pending neurological test results peripherally when done and follow up patient as needed based on the test results. Please call with questions if any in the interim. This note has been generated using [employer] dictation software. It may contain incorrect words, punctuation's and spellings that were not noted in the review of the note prior to signing Problem List/Past Medical History Ongoing No qualifying data Historical No qualifying data Procedure/Surgical History No qualifying data available. Medications Inpatient amiodarone, 200 mg= 1 tab(s), Oral, qDayM aspirin 81 mg oral delayed release tablet, 81 mg= 1 tab(s), Oral, qDay atorvastatin, 40 mg= 1 tab(s), Oral, qHS clopidogrel, 75 mg= 1 tab(s), Oral, qDay Daily Tin, 1 tab(s), Oral, Daily doxycycline, 100 mg= 1 cap(s), Oral, BID DuoNeb, 3 mL, Inhalation, q4hRT, PRN ferrous sulfate, 325 mg= 1 tab(s), Oral, qDay folic acid, 1 mg= 1 tab(s), Oral, qDay guaiFENesin, 200 mg= 10 mL, Oral, q4h, PRN lamoTRIgine 100 mg oral tablet, 100 mg= 1 tab(s), Oral, BID magnesium oxide, 400 mg= 1 tab(s), Oral, Daily melatonin, 3 mg= 1 tab(s), Oral, qHS, PRN Miralax Powder Packet, 17 gram(s)= 15 mL, Oral, qDay, PRN primidone, 100 mg= 2 tab(s), Oral, TID thiamine, 100 mg= 1 tab(s), Oral, Daily Tylenol, 650 mg= 2 tab(s), Oral, q4h, PRN Tylenol, 650 mg= 2 tab(s), Oral, q4h, PRN Vitamin C, 500 mg= 1 tab(s), Oral, qDay Zofran, 4 mg= 2 mL, IV Push, q4h, PRN Home acetaminophen 500 mg oral capsule, 1000 mg= 2 cap(s), Oral, q4h, PRN amiodarone 200 mg oral tablet, 200 mg= 1 tab(s), Oral, qDayM aspirin 81 mg oral delayed release tablet, 81 mg= 1 tab(s), Oral, qDay atorvastatin 40 mg oral tablet, 40 mg= 1 tab(s), Oral, qHS clopidogrel 75 mg oral tablet, 75 mg= 1 tab(s), Oral, qDay Daily Tin oral tablet, 1 tab(s), Oral, Daily doxycycline hyclate 100 mg oral capsule, 100 mg= 1 cap(s), Oral, BID ferrous sulfate 325 mg (65 mg elemental iron) oral delayed release tablet, 325 mg= 1 tab(s), Oral, qDay folic acid 1 mg oral tablet, 1 mg= 1 tab(s), Oral, qDay lamoTRIgine 100 mg oral tablet, 100 mg= 1 tab(s), Oral, BID magnesium oxide 400 mg oral tablet, 400 mg= 1 tab(s), Oral, Daily ondansetron 4 mg oral tablet, 4 mg= 1 tab(s), Oral, q6h, PRN primidone 50 mg oral tablet, 100 mg= 2 tab(s), Oral, TID thiamine 100 mg oral tablet, 100 mg= 1 tab(s), Oral, Daily Vitamin C 500 mg oral tablet, 500 mg= 1 tab(s), Oral, qDay Allergies No Known Medication Allergies Immunizations No qualifying data available. Digitally Signed by BRIANNA LEDEZMA MD on 09/13/2022 12:41 PM Digitally Signed by BRIANNA LEDEZMA MD on 09/13/2022 02:05 PM [id number] History and physical note [facility] Hospitalist History and Physical Date of Admission: 09/13/2022 Chief complaint: Change in mental status History of present illness: History is entirely taken from reviewing medical records. Cannot obtainany history from the patient due to his mental status. Patient was excepted as a transfer from [place] emergency department by my colleague. Patient has a past medical history of tobacco abuse, alcohol abuse per records no longer drinks alcohol, coronary artery disease status post stent and CABG, stroke, seizures. Patient was taken to [place] emergency department due to having a change in mental status. Reportedly around 1 week ago the patient fell 20 feet from a ladder and hitting his head. He was then tak[facility] where they did a work-up including MRI of the brain which showed chronic strokebut nothing acute. They also did a CT of the cervical spine which did not show any concerning finding. Patient was evaluated by neurology and was cleared for discharge. He also subsequently was undera car working on a car when he scraped his head and therefore again was taken to [facility] for evaluation. On his first fall he did develop a scalp laceration and then developed another 1 withthe car injury. The lacerations were stitched and the patient was discharged home. Over the last several days the patient has been very confused and therefore they took him to the emergency room for evaluation. They have not noted any seizure-like activity or strokelike symptoms. He basically is just very weak and very confused. Since arriving here the patient knows his name but otherwise is not oriented to situation or place.He moves all extremities spontaneously. However he did not follow commands and is very weak. He didnot have any slurred speech or facial droop. He denied a headache. Since presenting to the emergency room the patient has been afebrile, hemodynamically stable, 99% room air. Labs and imaging of note: CBC within normal limits Urinalysis not concerning for infection BMP within normal limits CT head without contrast showed remote right cerebellar infarct otherwise no concerning finding. CT cervical spine without contrast did not show any acute fracture or dislocation. Show degenerative changes most prominent at C5-C6 with central canal and foraminal stenosis. Past medical history: History of CVA (cerebrovascular accident) without residual deficits History of seizure disorder Family history: Not able to obtain due to his mental status Social history: No longer drinks alcohol. Smokes a pack of cigarettes a day. Medications: Medications were not verified by pharmacy at the time of this dictation Allergies: No Known Medication Allergies Review of systems: See HPI for pertinent positives and negatives. All other review of systems have been reviewed and they are negative. 36.6, 58, 16, 105/63, 99% room air. Physical examination: HEENT: No Pallor, No Icterus. Scalp laceration status post stitching Cardiac: RRR, No murmur Lungs: CTA, good air entry Abdomen: Soft Non tender Musculoskeletal: No joint pains or swelling Extremities: No edema, good pulses Neurological: Alert and moves all extremities spontaneously. However he is very confused and not following commands. Oriented only to self. Skin: No rash, no nodules Labs: As mentioned in HPI Assessment and plan: Patient was excepted as a transfer from [facility] emergency room by nataliia on 09/13/2022 for further work-up and treatment of encephalopathy. Encephalopathy. Does not appear to be infectious related. The patient has been afebrile and does not have a leukocytosis. Could be secondary to concussion from recent fall where he fell 20 feet onto his head. Recent MRI of the brain at [facility] showed remote stroke but no acute stroke. Doeshave a history of seizures but has not had any seizure-like activity. We will do a metabolic work-up. Will be on heart monitor. We will consult neurology for further work-up and recommendations. Hypertension. Continue home medications with holding parameters Tobacco abuse. Patient declined nicotine patch Coronary artery disease status post stent and CABG. Continue antiplatelet therapy Stroke. Continue home medications Seizures. Continue home medications Scalp lacerations from recent fall. Follow-up outpatient Prophylaxis SCDs CODE STATUS full code Digitally Signed by JUHI PUENTES MD on 09/13/2022 12:52 AM [facility] [id number] NoteHNO ID: [id number] Author: Linda Winkler APRN.BULL BUCKER Service: ? Author Type: Nurse Practitioner Type: Progress Notes Filed: 11/06/2021 3:11 PM Note Text: HPI: Radha Brennan is a 66 year old male with PMH?of coronary artery disease, hyperlipidemia,?prior CVA, seizure disorder, atrial septal aneurysm,?ongoing and prolonged tobacco use (1.5 packs of series per day, started age 5).??In 2018, he?underwent stenting with drug-eluting stents to the left anterior descending artery and second diagonal branch?after?presenting with anginal symptoms. ?He presented earlier this year?with unstable anginal symptoms, underwent cardiac catheterization and was?found to have severe multivessel disease include involving the LAD, D1, D2 ? He?underwent CABG x [address] Dominguez on 09/21/2021. (GRAFTS:?RIBEIRO in situ mammary end to side mid LAD,?Vein graft ascending aorta end to side diagonal 2,?ELIEL ascending aorta end to side diagonal 1). He did return to OR shortly after transfer to CVICU for increased chest tube output. A small area of arterial bleeding was identified in the L chest.?Bleeding was controlled and he returned in stable condition to CVICU, where he was extubated on POD1?. On POD 1 (09/22),?he had a convulsive seizure lasting 15 minutes, relieved with ativan, no recurrence.?On POD 2 (09/23), he?required a blood transfusion and also episode of atrial fibrillation?which resolved with medical therapy. On POD 4,?he was?found to have fluid around his?left lung, eventually requiring CT placement on POD 6 which was removed shortly thereafter.?He continued to recover without issue and was?deemed stable for discharge one week after surgery with [facility] ? At his 1 week post hospital [place] follow up visit (walked in to this appointment, accompanied by his lady friend, from the parking garage all the way to the office. When he arrived to the office waiting room, he shares that he started experiencing sharp left sided chest pain 8/10. He was brought back to the exam room for evaluation, and reported after 10 minutes or so of rest that it had subsided to a dull left pectoral ache 2/10. Denies SOB. Endorses chronic cough. Continues to smoke 1 PPD. Admits he has been walking around the [place], brief shorter walks. Attempted 1/2 lap around the [place] and experienced similar symptoms that subsided with rest. At the time of this evaluation he was noted to have significant bilateral hand tremors that he admits he gets when he is in pain. Manual BP left arm 110/60, HR 80. Repeat BP automatic cuff 110/60, 100% on RA, RR 16. He remained with pink, warm, dry skin. EKG revealed SR 77 NSR, possible ZEB, t wave abnormality (inversion) to lateral leads (V4, V5, V6). Dr. Dominguez was in to examine patient. Compared previous EKG from 09/22/21. After about 20 minutes of rest, Radha denied any further discomfort.) ? We resumed flexeril, counselled on smoking cessation, and modified activity, and requested he return to office in 1 week for follow up. At follow up he reported feeling much better in general. [place] [place], then rests and resumes walk. Tolerating this without any chest pain, palpitations, shortness of breath. Continues to smoke 1/2 PPD. Stopped flexeril after a couple doses, thinks it may be contributing to nightmares. Interval events: went to [place] [facility] two weeks ago for left forearm and upper arm pain, tells me he was diagnosed with blood clots to left arm, but was advised no new treatments given that he is already on ASA and Plavix. No record available for review at this time. Continues to ambulate around [facility] without CP/palp/sob. Continues to smoke Radha Michelle Brennan reports home recovery as listed below: Episodes of dizziness or syncope: no Chest pain: some anterior chest muscular skeletal discomfort Palpitations: no BP: reviewed per home log: not available Tolerating diet well without changing bowel habits: yes Fever, chills: no Activities at home with/without SOB or FREEMAN: walks as noted above Post surgical pain with pain medications - tolerable with PRN flexeril which he resumed and tylenol. Leg edema: none Sleep: good Energy: good Subjective: Current Outpatient Medications Medication Sig - cyclobenzaprine (FLEXERIL) 5 mg tablet Take 1 tablet by mouth three times daily as needed for muscle spasm. 09/30/21 NOT TAKING (Patient taking differently: Take 1 tablet by mouth three times daily as needed for muscle spasm.) - lidocaine (SALONPAS) 4 % patch Apply 1 Patch as directed once daily. - magnesium oxide (MAG-OX) 400 mg (241.3 mg magnesium) tablet Take 1 tablet by mouth once daily. - thiamine (VITAMIN B1) 100 mg tablet 1 tablet by ORAL/FEEDING TUBE route three times daily. - senna-docusate (SENNA-S) 8.6-50 mg per tablet Take 1 tablet by mouth twice daily. - lamoTRIgine (LAMICTAL) 25 mg tablet Take 50 mg by mouth twice mack (more content not included)...[facility]08-05-2022 Miscellaneous Notes* [facility] - Nelia Pierre, RT(R) - 11/06/2021 3:00 PM EDT Radiology Service Progress Note PATIENT NAME: Radha Brennan DATE OF SERVICE: November 06, 2021 TIME: 1:59 PM PATIENT IDENTITY VERIFICATION COMPLETED USING TWO (2) IDENTIFIERS: Name and Date of confirmedby patient verbally and Name and Date of confirmed by identification band. FALL SCREENING: Has the patient had 2 falls in the last year or 1 fall with injury or currently using an Ambulatory Assistive Device (Walker, Cane, Wheelchair, Crutches, etc.)? Yes, Patient High Riskfor Falls What interventions were put in place to prevent falls during this visit? [place] Risk Wristband Applied, Instructed Patient to Remain Seated (Not on Exam Table) Until Exam and Increased Observations by Caregivers PATIENT GENDER DATA: Male PATIENT RELEVANT IMPLANT DATA REVIEWED: Not Applicable RADIOLOGY DEPARTMENT: General X-ray: Exam(s) Completed: Chest X-Ray PERIPHERAL IV DATA: Not applicable SIGNED BY: RT Louisa(R) November 06, 2021 1:59 PM documented in this encounterMartin [facility]-2022 Instructions* Patient Instructions* Linda Winkler, CONTESTANT COORDINATOR.BULL BUCKER - 11/06/2021 2:41 PM EDT You have done a great job recovering from you surgery, moving forward, here are the recommendations: Medications: please continue taking Aspirin, plavix, beta millie (metoprolol) and statin for coronary artery disease. Please avoid taking NSAIDs (Aleve, Ibuprofen, Motrin, Advil, Mobic etc) Driving: Ok to drive now! Vest: ok to stop using Cardiac Rehab: [phone] ([place] [facility], floor 1) You will have a EKG stress test before and after the cardiac rehab, which will be arranged by [facility]. Restrictions: slowly increase weight bearing in a gradual fashion (5-10 lbs increment each month) over the next 2-3 months to allow further healing, then gradually resume your normal activities depending on how you feel. Follow-ups: It is crucial to establish future appointments with your main providers, they are you commercial attorney , primary care doctor and/or your fruit worker for medications refills/questions and future health management. Please make cardiology appointment in 4 weeks. CALL SOPHIA MADISON [phone] with [facility] Please make primary care appointment in 4-6 weeks Thanks for coming in to see me today. Please call us if you have any concerns/questions: [phone] You can follow up with cardiac surgery team on as needed basis. Please don't hesitate to contact us if you have any concerns/questions: [phone] Thanks for coming in to see me today. Linda Winkler APRN.CNP documented in this encounterMartin [facility] Hospital08-05-2022 History of Present illness Narrative* Linda Winkler APRN.CNP - 11/06/2021 2:37 PM EDT HPI: Radha Brennan is a 66 year old male with PMH of coronary artery disease, hyperlipidemia, prior CVA, seizure disorder, atrial septal aneurysm, ongoing and prolonged tobacco use (1.5 packs of series per day, started age 5). In 2018, he underwent stenting with drug-eluting stents to the left anteriordescending artery and second diagonal branch after presenting with anginal symptoms. He presented earlier this year with unstable anginal symptoms, underwent cardiac catheterization and was found to have severe multivessel disease include involving the LAD, D1, D2 He underwent CABG x [address] Dominguez on 09/21/2021. (GRAFTS: RIBEIRO in situ mammary end to side mid LAD, Vein graft ascending aorta end to side diagonal 2, ELIEL ascending aorta end to side diagonal 1). He did return to OR shortly after transfer to CVICU for increased chest tube output. A small area of arterial bleeding was identified in the L chest. Bleeding was controlled and he returned in stable condition to CVICU, where he was extubated on POD1 . On POD 1 (09/22), he had a convulsive seizure lasting 15 minutes, relieved with ativan, no recurrence. On POD 2 (09/23), he required a blood transfusion and also episode of atrial fibrillation which resolved with medical therapy. On POD 4, he was found to have fluid around his left lung, eventually requiring CT placement on POD 6 which was removed shortly thereafter. He continued to recover without issue and was deemed stable for discharge oneweek after surgery with [facility] At his 1 week post hospital [place] follow up visit (walked in to this appointment, accompanied by his lady friend, from the parking garage all the way to the office. When he arrived to the office waitingroom, he shares that he started experiencing sharp left sided chest pain 11/11. He was brought back to the exam room for evaluation, and reported after 10 minutes or so of rest that it had subsided toa dull left pectoral ache 05/14. Denies SOB. Endorses chronic cough. Continues to smoke 1 PPD. Admits he has been walking around the [facility], brief shorter walks. Attempted 1/2 lap around the [facility] and experienced similar symptoms that subsided with rest. At the time of this evaluation he was noted to have significant bilateral hand tremors that he admits he gets when he is in pain. Manual BP left arm 110/60, HR 80. Repeat BP automatic cuff 110/60, 100% on RA, RR 16. He remained withpink, warm, dry skin. EKG revealed SR 77 NSR, possible ZEB, t wave abnormality (inversion) to lateral leads (V4, V5, V6). Dr. Dominguez was in to examine patient. Compared previous EKG from 09/22/21. After about 20 minutes of rest, Radha denied any further discomfort.) We resumed flexeril, counselled on smoking cessation, and modified activity, and requested he return to office in 1 week for follow up. At follow up he reported feeling much better in general. Walking about half trip around [facility]- 150 ft, then rests and resumes walk. Tolerating this without any chest pain, palpitations, shortness of breath. Continues to smoke 1/2 PPD. Stopped flexeril after a couple doses, thinks it may be contributing to nightmares. Interval events: went to [place] [facility] two weeks ago for left forearm and upper arm pain, tells me he was diagnosed with blood clots to left arm, but was advised no new treatments given that he is already on ASA and Plavix. No record available for review at this time. Continues to ambulate around [facility] without CP/palp/sob. Continues to smoke Radha Brennan reports home recovery as listed below: Episodes of dizziness or syncope: no Chest pain: some anterior chest muscular skeletal discomfort Palpitations: no BP: reviewed per home log: not available Tolerating diet well without changing bowel habits: yes Fever, chills: no Activities at home with/without SOB or FREEMAN: walks as noted above Post surgical pain with pain medications - tolerable with PRN flexeril which he resumed and tylenol. Leg edema: none Sleep: good Energy: good Subjective: Current Outpatient Medications Medication Sig cyclobenzaprine (FLEXERIL) 5 mg tablet Take 1 tablet by mouth three times daily as needed for muscle spasm. 09/30/21 NOT TAKING (Patient taking differently: Take 1 tablet by mouth three times daily asneeded for muscle spasm.) lidocaine (SALONPAS) 4 % patch Apply 1 Patch as directed once daily. magnesium oxide (MAG-OX) 400 mg (241.3 mg magnesium) tablet Take 1 tablet by mouth once daily. thiamine (VITAMIN B1) 100 mg tablet 1 tablet by ORAL/FEEDING TUBE route three times daily. senna-docusate (SENNA-S) 8.6-50 mg per tablet Take 1 tablet by mouth twice daily. lamoTRIgine (LAMICTAL) 25 mg tablet Take 50 mg by mouth twice daily. aspirin, enteric coated (ASPIRIN, ENTERIC COATED) 81 mg EC tablet Take 81 mg by mouth once daily. primidone (MYSOLINE) 50 mg tablet Take 75 mg by mouth twice daily. atorvastatin (LIPITOR) 40 mg tablet Take 40 mg by mouth once daily. nitroglycerin sublingual (NITROQUICK) 0.4 mg SL tablet Dissolve 1 tablet under the tongue every 5 minutes as needed for Chest Pain. August of three doses. amiodarone (PACERONE) 200 mg tablet Take 1 tablet by mouth once daily for 5 days, THEN 0.5 tablets once daily. ascorbic acid, vitamin C, (VITAMIN C) 500 mg tablet Take 1 tablet by mouth once daily. gabapentin (NEURONTIN) 100 mg capsule Take 2 capsules by mouth twice daily for 14 days. nicotine (NICODERM) 21 mg/24 hr Apply 1 Patch as directed once daily for 14 days. metoprolol tartrate, short acting, (LOPRESSOR) 25 mg tablet Take 1 tablet by mouth every 12 hours. food supplemt, lactose-reduced (BOOST BREEZE NUTRITIONAL) 0.04-1.05 gram-kcal/mL Take 1 Can by mouth twice daily for 14 days. clopidogrel (PLAVIX) 75 mg tablet Take 75 mg by mouth once daily. No current facility-administered medications for this visit. Tuberculin, Purified Protein Derivative and Venom-Honey Bee PAST MEDICAL HISTORY Diagnosis Date Atherosclerosis of [place] coronary artery of [place] heart with angina pectoris (HCC) Atrial septal aneurysm Cerebrovascular accident (CVA) due to embolism of cerebral artery (HCC) 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 (HCC) LV dysfunction mild Mixed hyperlipidemia Seizure (HCC) Tobacco use disorder PAST SURGICAL HISTORY Procedure Laterality Date CABG (3) VEIN GRAFTS & ARTERIAL GRAFT(S) 09/21/2021 LUMBAR PUNCTURE OTHER 2018 ptca ZOLTAN to mid LAF and second diagonal PAST SURGICAL HISTORY OF lymph node resection FAMILY HISTORY Problem Relation Age of Onset Heart Attack Mother Heart Attack Brother Social History Tobacco Use Smoking status: Current Every Day Smoker Packs/day: 0.50 Years: 61.00 Pack years: 30.50 Types: Cigarettes Smokeless tobacco: Never Used Vaping Use Vaping Use: Never used Substance Use Topics Alcohol use: Yes Comment: 1 drink per month Drug use: Never Review of Systems Constitutional: Negative for chills, diaphoresis, fever, malaise/fatigue and weight loss. Respiratory: Positive for cough. Negative for hemoptysis, sputum production, shortness of breath and wheezing. Chronic cough Cardiovascular: Positive for chest pain. Negative for palpitations, orthopnea, claudication, leg swelling and PND. Gastrointestinal: Negative for abdominal pain, constipation, diarrhea and nausea. Skin: Negative for itching. Neurological: Positive for tremors. Negative for dizziness, tingling, focal weakness, seizures, loss of consciousness, weakness and headaches. Objective: One month post- op Chest X-ray is done and reviewed today. Official read pending. Anterior view initial review with small left pleural effusuion, but looks largely clearer in lateral view. Physical Examination: Vitals:BP 118/64 Pulse 68 Resp 16 Ht 5' 8.5 (1.74m) Wt 133 lb (60.3kg) SpO2 98% BMI 19.93 kg/(m^2). BP w/Orthostatic Vitals Date and Time Orthostatic BP Orthostatic Pulse BP Pulse BP Position BP Site BP Cuff Size 11/06/21 1416 -- -- 118/64 68 Sitting Right Arm -- Peak Flow Date and Time PF Resp 11/06/21 1416 -- 16 Last 2 Encounter Wt Readings: Date: Wt: 11/06/2021 133 lb (60.3 kg) 10/22/2021 130 lb 12.8 oz (59.3 kg) Physical Exam Constitutional: General: He is not in acute distress. Appearance: Normal appearance. Comments: thin HENT: Head: Normocephalic and atraumatic. Eyes: Extraocular Movements: Extraocular movements intact. Conjunctiva/sclera: Conjunctivae normal. Pupils: Pupils are equal, round, and reactive to light. Cardiovascular: Rate and Rhythm: Normal rate and regular rhythm. Pulses: Normal pulses. Heart sounds: Normal heart sounds. Pulmonary: Effort: Pulmonary effort is normal. Breath sounds: Normal breath sounds. Comments: Slightly diminished throughout Abdominal: General: Abdomen is flat. Bowel sounds are normal. Palpations: Abdomen is soft. Musculoskeletal: Right lower leg: No edema. Left lower leg: No edema. Skin: General: Skin is warm and dry. Capillary Refill: Capillary refill takes less than 2 seconds. Comments: MSI and CT sites well approximated and healing. Sternal bones stable. No s/sx of infection. right leg harvest sites well approximated and healing. No s/sx of infection Neurological: General: No focal deficit present. Mental Status: He is alert and oriented to person, place, and time. Comments: Notable BUE tremor Psychiatric: Mood and Affect: Mood normal. Behavior: Behavior normal. Assessment and Plan: 1. S/P CABG x 3 - ICD9: V45.81, ICD10: Z95.1 (primary diagnosis) - Good post-op recovery for 1 month follow up - Ok to start driving and gradually resume normal ADLs as tolerated - May increase your pushing/pulling/ lifting to <15-20 lbs for this next month, and then <25-30 pounds for the following month, then after 12 weeks from surgery, no restrictions - Discontinue thoracic vest -Cardiac rehabilitation: ordered placed previously, proceed as scheduled. -Bridge Painter Helper follow up appointment: again provided pt with number and name of his previously established cardiology group. pts friend stated she would help him call for appt. - PCP follow up appointment in 3-4 weeks - Cardiothoracic surgery follow up with us only as needed, otherwise discharged from our service. - Pt doing okay overall, no more reports of chest pain. Improving stamina, energy - Continue ASA 81 mg once daily, statin, betablocker - Pain controlled; continue ERAS. Resume previously taken flexeril for additional pain control PRN.Encouraged ice/heat/lidocaine patches 2. Coronary artery disease involving c[place] coronary artery of c[place] heart without angina pectoris- ICD9: 414.01, ICD10: I25.10 - remains on plavix 2/2 previous PCI - continue ASA, statin, BB 3. Paroxysmal atrial fibrillation (HCC) - ICD9: 427.31, ICD10: I48.0 - appears to be in regular rhythm at today's visit. - no c/o palpitations - continue BB 4. Chronic obstructive pulmonary disease, unspecified COPD type (HCC) - ICD9: 496, ICD10: J44.9 5. Tobacco abuse - ICD9: 305.1, ICD10: Z72.0 - Cessation encouraged - previously provided nicoderm patches - pt verbalized unable/ not willing to quit at this time 6. Acute blood loss anemia - ICD9: 285.1, ICD10: D62 - stable at 8.9 (09/26/21) 7.7 ( 09/25/21) 7. Severe protein-calorie malnutrition (HCC) - ICD9: 262, ICD10: E43 - continues BOOST TID - encouraged protein rich small frequent meals - continue daily weight monitorin Will request [facility] ER records for follow up on potential left arm blood clot. As of now,left arm without erythema, edema, excessive warmth. bilat radial 2+ Linda Winkler APRN.BULL BUCKER documented in this encounterMartin [facility]07-26-2022 Miscellaneous Notes* Telephone Encounter - Sudheer Willis RN - 10/27/2021 7:38 AM EDT Linda Winkler; Patient has been discharged from skilled home health services as of 10/22/21. Nurse/teaching goals met. Thank you for allowing [facility] to serve your patient. Sudheer Willis RN documented in this encounterMartin [facility] Hospital07-21-2022 Miscellaneous Notes* SN Agency LYNN Calvillo RN - 10/22/2021 10:01 AM EDT SITUATION: Detention agency discharge visit completed today. patient reports the following: Allergies--reviewed Medications--reviewed current medications [place]--None BACKGROUND: Reason for Home Care: post CABG assessment and instruction. ASSESSMENT: SN greeted at door by caregiver. Upon entrance patient found on couch. Patient appears in no acute distress. Patient/CG concerns verbalized today: no concerns; pt reports that he went to ER for the pain in his L arm and was told that he has a blood clot in his brahial area of his L arm and to L IJ. He states that these are just going to be watched.Dr Chowdary is going to be follwing this. Pt will see himeagain next week. Vitals (see flow sheet for details): stable SN findings today: Pt is alert and oriented, sitting on couch. His memory seems better, he stopped the flexeril and has not had any nightmares since then. Pt reprots that his L arm pain has yoav tolerable, occasionally has sharp pains that shoot into his axilla area. Chest discomfort (surgical) has been tolerable. Sternal incision still has some dermabond but it is sloughing off and incision is well healed. R leg incision still has a small amount of dermabond that remains, appears to be healed. Pt reports that he still has issues with constipation but bowels are moving. Cg reports that she backed off on the miralax because pt told her that his bowels were getting too soft. She gave him a dose of miralax with apple juice last night. Pt instructed to keep cg aware of when he needs the mirialax. See intervention summary for education details and any skills performed. Specific SN discharge instructions: Follow up with Dr Chowdary as recommended to follow up on bloodclots. Contact Linda Winkler for any concerns related to surgery. Anticipate starting cardiac rehab after your next appt with Kimmy Winkler. Use the miralax as needed to keep your bowels moving. Patient encouraged to take all medication as ordered, eat a well-balanced diet and follow up with all physician appointments. NOMNC: signed and present on EMR Discharged due to Goals met. Patient discharged from Home Care to: family support RECOMMENDATION: Additional follow ups recommended: None Patient to follow up with Linda Winkler CNP for additional medical questions/concerns. documented in this encounterMartin [facility] Hospital07-21-2022 Miscellaneous Notes* Telephone Encounter - Warren Luciano - 10/22/2021 9:29 AM EDT [facility] phone [phone] fax [phone]. Orders, 10/16/21 office notes, discharge summary, operative report faxed on 10/22/21 documented in this encounterMartin Memorial Hospital07-15-2022 NoteHNO ID: [id number] Author: Linda Winkler APRN.ODALIS Service: ? Author Type: Nurse Practitioner Type: Progress Notes Filed: 10/17/2021 12:33 PM Note Text: HPI: Radha Brennan is a 66 year old male with PMH of coronary artery disease, hyperlipidemia, prior CVA, seizure disorder, atrial septal aneurysm,?ongoing and prolonged tobacco use (1.5 packs of series per day, started age 5).??In 2018, he?underwent stenting with drug-eluting stents to the left anterior descending artery and second diagonal branch after presenting with anginal symptoms. ?He presented earlier this year with unstable anginal symptoms, underwent cardiac catheterization and was found to have severe multivessel disease include involving the LAD, D1, D2 ? He underwent CABG x [address] Dominguez on 09/21/2021. (GRAFTS: RIBEIRO in situ mammary end to side mid LAD, Vein graft ascending aorta end to side diagonal 2, ELIEL ascending aorta end to side diagonal 1). He did return to OR shortly after transfer to CVICU for increased chest tube output. A small area of arterial bleeding was identified in the L chest. Bleeding was controlled and he returned in stable condition to CVICU, where he was extubated on POD1 . On POD 1 (09/22), he had a convulsive seizure lasting 15 minutes, relieved with ativan, no recurrence. On POD 2 (09/23), he required a blood transfusion and also episode of atrial fibrillation which resolved with medical therapy. On POD 4, he was found to have fluid around his left lung, eventually requiring CT placement on POD 6 which was removed shortly thereafter. He continued to recover without issue and was deemed stable for discharge one week after surgery with [facility] At his 1 week post hospital [place] follow up visit (walked in to this appointment, accompanied by his lady friend, from the parking garage all the way to the office. When he arrived to the office waiting room, he shares that he started experiencing sharp left sided chest pain 11/11. He was brought back to the exam room for evaluation, and reported after 10 minutes or so of rest that it had subsided to a dull left pectoral ache /. Denies SOB. Endorses chronic cough. Continues to smoke 1 PPD. Admits he has been walking around the [place], brief shorter walks. Attempted 1/2 lap around the [place] and experienced similar symptoms that subsided with rest. At the time of this evaluation he was noted to have significant bilateral hand tremors that he admits he gets when he is in pain. Manual BP left arm 110/60, HR 80. Repeat BP automatic cuff 110/60, 100% on RA, RR 16. He remained with pink, warm, dry skin. EKG revealed SR 77 NSR, possible ZEB, t wave abnormality (inversion) to lateral leads (V4, V5, V6). Dr. Dominguez was in to examine patient. Compared previous EKG from 09/22/21. After about 20 minutes of rest, Radha denied any further discomfort.) We resumed flexeril, counselled on smoking cessation, and modified activity, and requested he return to office in 1 week for follow up. Interval events: Reports feeling much better in general. Walking about half trip around [employer]- 150 ft, then rests and resumes walk. Tolerating this without any chest pain, palpitations, shortness of breath. Continues to smoke 1/2 PPD. Stopped flexeril after a couple doses, thinks it may be contributing to nightmares. Radha Brennan reports home recovery as listed below: Patient is c/o: left arm paresthesias- saw PCP for them last week Episodes of dizziness or syncope: no Chest pain: no Palpitations: no BP: reviewed per home log: not available but lady friend states around 115-140/x Tolerating diet well without changing bowel habits: yes, was having increased appetite for a few days since last visit, now at baseline with poor appetite. Continues with boost supplements Fever, chills: no Activities at home with/without SOB or FREEMAN: walks as noted above Post surgical pain with pain medications - relieved with PRN tylenol. Leg edema: no Sleep: improving Energy: improving Subjective: Current Outpatient Medications Medication Sig - cyclobenzaprine (FLEXERIL) 5 mg tablet Take 1 tablet by mouth three times daily as needed for muscle spasm. 09/30/21 NOT TAKING (Patient taking differently: Take 1 tablet by mouth three times daily as needed for muscle spasm.) - amiodarone (PACERONE) 200 mg tablet Take 1 tablet by mouth once daily for 5 days, THEN 0.5 tablets once daily. - ascorbic acid, vitamin C, (VITAMIN C) 500 mg tablet Take 1 tablet by mouth once daily. - ferrous sulfate 325 mg (65 mg iron) tablet Take 1 tablet by mouth once daily. - folic acid 1 mg tablet Take 1 tablet by mouth once daily. - gabapentin (NEURONTIN) 100 mg capsule Take 2 capsules by mouth twice daily for 14 days. - lidocaine (SALONPAS) 4 % patch Apply 1 Patch as directed once daily. - nicotine (NICODERM) 21 mg/24 hr Apply 1 Patch as directed once daily for 14 days. - (more content not included)...[facility]07-15-2022 Instructions* Patient Instructions* Linda Winkler APRN.BULL BUCKER - 10/16/2021 1:56 PM EDT Weight: Please continue monitoring daily weight; Activity:Continue gradual increase in activities as tolerated; Diet: Heart healthy diet with good protein intake; green leafy vegetable, low salt, and 2 L fluid daily Devices: Wear supportive stockings until leg swelling improved; posthorax vest (up to 1 month) during daytime and off at nighttime; Restrictions: Continue the weight limit to less than 10 lbs (for one month), and no driving until cleared by your providers; Advice: please change position slowly to prevent fall due to dizziness; Upcoming appointments: Please follow up back here in 3-4 weeks with chest x-ray prior to that appointment Please make cardiology appointment in 4-6 weeks. CALL SOPHIA MADISON [phone] with [facility] Please make primary care appointment in 4-6 weeks Thanks for coming in to see me today. Please call us if you have any concerns/questions: [phone] Linda Winkler APRN.ODALIS documented in this encounterMartin [facility] Hospital07-15-2022 History of Present illness Narrative* Linda Winkler APRN.CNP - 10/16/2021 1:26 PM EDT HPI: Radha Brennan is a 66 year old male with PMH of coronary artery disease, hyperlipidemia, prior CVA, seizure disorder, atrial septal aneurysm, ongoing and prolonged tobacco use (1.5 packs of series per day, started age 5). In 2018, he underwent stenting with drug-eluting stents to the left anteriordescending artery and second diagonal branch after presenting with anginal symptoms. He presented earlier this year with unstable anginal symptoms, underwent cardiac catheterization and was found to have severe multivessel disease include involving the LAD, D1, D2 He underwent CABG x [address] Dominguez on 09/21/2021. (GRAFTS: RIBEIRO in situ mammary end to side mid LAD, Vein graft ascending aorta end to side diagonal 2, ELIEL ascending aorta end to side diagonal 1). He did return to OR shortly after transfer to CVICU for increased chest tube output. A small area of arterial bleeding was identified in the L chest. Bleeding was controlled and he returned in stable condition to CVICU, where he was extubated on POD1 . On POD 1 (09/22), he had a convulsive seizure lasting 15 minutes, relieved with ativan, no recurrence. On POD 2 (09/23), he required a blood transfusion and also episode of atrial fibrillation which resolved with medical therapy. On POD 4, he was found to have fluid around his left lung, eventually requiring CT placement on POD 6 which was removed shortly thereafter. He continued to recover without issue and was deemed stable for discharge oneweek after surgery with [facility] At his 1 week post hospital [place] follow up visit (walked in to this appointment, accompanied by his lady friend, from the parking garage all the way to the office. When he arrived to the office waitingroom, he shares that he started experiencing sharp left sided chest pain 11/11. He was brought back to the exam room for evaluation, and reported after 10 minutes or so of rest that it had subsided toa dull left pectoral ache /. Denies SOB. Endorses chronic cough. Continues to smoke 1 PPD. Admits he has been walking around the [facility], brief shorter walks. Attempted 1/2 lap around the [facility] and experienced similar symptoms that subsided with rest. At the time of this evaluation he was noted to have significant bilateral hand tremors that he admits he gets when he is in pain. Manual BP left arm 110/60, HR 80. Repeat BP automatic cuff 110/60, 100% on RA, RR 16. He remained withpink, warm, dry skin. EKG revealed SR 77 NSR, possible ZEB, t wave abnormality (inversion) to lateral leads (V4, V5, V6). Dr. Dominguez was in to examine patient. Compared previous EKG from 09/22/21. After about 20 minutes of rest, Radha denied any further discomfort.) We resumed flexeril, counselled on smoking cessation, and modified activity, and requested he return to office in 1 week for follow up. Interval events: Reports feeling much better in general. Walking about half trip around [facility]- 150 ft, then rests and resumes walk. Tolerating this without any chest pain, palpitations, shortness of breath. Continues to smoke 1/2 PPD. Stopped flexeril after a couple doses, thinks it may be contributing to nightmares. Radha Brennan reports home recovery as listed below: Patient is c/o: left arm paresthesias- saw PCP for them last week Episodes of dizziness or syncope: no Chest pain: no Palpitations: no BP: reviewed per home log: not available but lady friend states around 115-140/x Tolerating diet well without changing bowel habits: yes, was having increased appetite for a few days since last visit, now at baseline with poor appetite. Continues with boost supplements Fever, chills: no Activities at home with/without SOB or FREEMAN: walks as noted above Post surgical pain with pain medications - relieved with PRN tylenol. Leg edema: no Sleep: improving Energy: improving Subjective: Current Outpatient Medications Medication Sig cyclobenzaprine (FLEXERIL) 5 mg tablet Take 1 tablet by mouth three times daily as needed for muscle spasm. 09/30/21 NOT TAKING (Patient taking differently: Take 1 tablet by mouth three times daily asneeded for muscle spasm.) amiodarone (PACERONE) 200 mg tablet Take 1 tablet by mouth once daily for 5 days, THEN 0.5 tablets once daily. ascorbic acid, vitamin C, (VITAMIN C) 500 mg tablet Take 1 tablet by mouth once daily. ferrous sulfate 325 mg (65 mg iron) tablet Take 1 tablet by mouth once daily. folic acid 1 mg tablet Take 1 tablet by mouth once daily. gabapentin (NEURONTIN) 100 mg capsule Take 2 capsules by mouth twice daily for 14 days. lidocaine (SALONPAS) 4 % patch Apply 1 Patch as directed once daily. nicotine (NICODERM) 21 mg/24 hr Apply 1 Patch as directed once daily for 14 days. metoprolol tartrate, short acting, (LOPRESSOR) 25 mg tablet Take 1 tablet by mouth every 12 hours. magnesium oxide (MAG-OX) 400 mg (241.3 mg magnesium) tablet Take 1 tablet by mouth once daily. thiamine (VITAMIN B1) 100 mg tablet 1 tablet by ORAL/FEEDING TUBE route three times daily. senna-docusate (SENNA-S) 8.6-50 mg per tablet Take 1 tablet by mouth twice daily. food supplemt, lactose-reduced (BOOST BREEZE NUTRITIONAL) 0.04-1.05 gram-kcal/mL Take 1 Can by mouth twice daily for 14 days. (Patient not taking: Reported on 10/01/2021) clopidogrel (PLAVIX) 75 mg tablet Take 75 mg by mouth once daily. lamoTRIgine (LAMICTAL) 25 mg tablet Take 50 mg by mouth twice daily. aspirin, enteric coated (ASPIRIN, ENTERIC COATED) 81 mg EC tablet Take 81 mg by mouth once daily. primidone (MYSOLINE) 50 mg tablet Take 75 mg by mouth twice daily. atorvastatin (LIPITOR) 40 mg tablet Take 40 mg by mouth once daily. nitroglycerin sublingual (NITROQUICK) 0.4 mg SL tablet Dissolve 1 tablet under the tongue every 5 minutes as needed for Chest Pain. May of three doses. No current facility-administered medications for this visit. Tuberculin, Purified Protein Derivative and Venom-Honey Bee PAST MEDICAL HISTORY Diagnosis Date Atherosclerosis of [place] coronary artery of [place] heart with angina pectoris (HCC) Atrial septal aneurysm Cerebrovascular accident (CVA) due to embolism of cerebral artery (HCC) 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 (HCC) LV dysfunction mild Mixed hyperlipidemia Seizure (HCC) Tobacco use disorder PAST SURGICAL HISTORY Procedure Laterality Date CABG (3) VEIN GRAFTS & ARTERIAL GRAFT(S) 09/21/2021 LUMBAR PUNCTURE OTHER 2018 ptca ZOLTAN to mid LAF and second diagonal PAST SURGICAL HISTORY OF lymph node resection FAMILY HISTORY Problem Relation Age of Onset Heart Attack Mother Heart Attack Brother Social History Tobacco Use Smoking status: Current Every Day Smoker Packs/day: 1.00 Years: 61.00 Pack years: 61.00 Types: Cigarettes Smokeless tobacco: Never Used Vaping Use Vaping Use: Never used Substance Use Topics Alcohol use: Yes Comment: 1 drink per month Drug use: Never Review of Systems Constitutional: Positive for weight loss. Negative for chills, diaphoresis, fever and malaise/fatigue. Respiratory: Positive for cough. Negative for hemoptysis, sputum production, shortness of breath and wheezing. Cardiovascular: Negative for chest pain, palpitations, orthopnea, claudication, leg swelling and PND. Gastrointestinal: Negative for abdominal pain, constipation, diarrhea, nausea and vomiting. Skin: Negative for itching and rash. Neurological: Positive for tingling and tremors. Negative for dizziness, speech change, focal weakness, seizures, weakness and headaches. Objective: Physical Examination: Vitals:BP 122/64 Pulse 72 Resp 16 Ht 5' 8.5 (1.74m) Wt 134 lb 12.8 oz (61.1kg) SpO2 97% BMI 20.20 kg/(m^2). Last 2 Encounter Wt Readings: Date: Wt: 10/15/2021 130 lb (59 kg) 10/09/2021 133 lb 9.6 oz (60.6 kg) Physical Exam Vitals reviewed. Constitutional: General: He is not in acute distress. Appearance: Normal appearance. Eyes: Extraocular Movements: Extraocular movements intact. Conjunctiva/sclera: Conjunctivae normal. Pupils: Pupils are equal, round, and reactive to light. Cardiovascular: Rate and Rhythm: Normal rate and regular rhythm. Pulses: Normal pulses. Heart sounds: Normal heart sounds. Pulmonary: Effort: Pulmonary effort is normal. Breath sounds: Normal breath sounds. Abdominal: General: Bowel sounds are normal. Palpations: Abdomen is soft. Musculoskeletal: General: No swelling. Right lower leg: No edema. Left lower leg: No edema. Skin: General: Skin is warm and dry. Capillary Refill: Capillary refill takes less than 2 seconds. Comments: MSI and CT sites well approximated and healing. Sternal bones stable. No s/sx of infection. right leg harvest sites well approximated and healing. No s/sx of infection Neurological: General: No focal deficit present. Mental Status: He is alert and oriented to person, place, and time. Psychiatric: Mood and Affect: Mood normal. Assessment and Plan: 1. S/P CABG x 3 - ICD9: V45.81, ICD10: Z95.1 (primary diagnosis) - Pt doing okay overall, no more reports of chest pain. Improving stamina, energy - reviewed modifying activities to shorter walks, stopping for rest if necessary - Continue ASA 81 mg once daily, statin, betablocker - Pain controlled; continue ERAS. Resume previously taken flexeril for additional pain control PRN - Continue HH diet; reinforced low NA diet and 2Liter fluid restriction, daily weight monitoring - Continue thoracic vest and sternal precautions (no lifting, pushing, pulling > 10 lbs. No driving) - Continue TEDs and BLE elevation while in bed or chair - Continue IS, VNS, mobilization - Outpt cardiac rehab in 1 month: orders placed - Follow-up in 2-3 weeks with CXR prior - Follow-up with [facility]/ in 1 month, provided pt number for Sophia Madison, his previous provider 2. Coronary artery disease involving catawba coronary artery of catawba heart without angina pectoris- ICD9: 414.01, ICD10: I25.10 - remains on plavix 2/2 previous PCI - continue ASA, statin, BB 3. Paroxysmal atrial fibrillation (HCC) - ICD9: 427.31, ICD10: I48.0 - appears to be in regular rhythm at today's visit. - no c/o palpitations - continue BB 4. Chronic obstructive pulmonary disease, unspecified COPD type (HCC) - ICD9: 496, ICD10: J44.9 5. Tobacco abuse - ICD9: 305.1, ICD10: Z72.0 - Cessation encouraged. - Physiologic and physical aspects of tobacco addiction were discussed. - Counseling was given focusing on the harmful effects of this addiction especially given the patient's medical condition(s) which will be worsened because of the chemicals in tobacco. - previously provided nicoderm patches - pt verbalized unable/ not willing to quit at this time 6. Acute blood loss anemia - ICD9: 285.1, ICD10: D62 - stable at 8.9 (09/26/21) 7.7 ( 09/25/21) - continues folic acid, ferrous sulfate, vitamin C 7. Severe protein-calorie malnutrition (HCC) - ICD9: 262, ICD10: E43 - continues BOOST TID - encouraged protein rich small frequent meals - continue daily weight monitorin Electronically signed by Linda Winkler APRN.CNP on October 16, 2021, 1:26 PM documented in this encounter[facility]07[facility] Miscellaneous Notes* Telephone Encounter - Linda Winkler APRN.CNP - 10/15/2021 12:18 PM EDT Jai Hahn, Yes I agree with flexeril advice. I believe Tylenol Arthritis is 650 mg, so 2 tabs would be too much at one time. He can do 1 tablet every 4 hours if he prefers. Thanks for all your care of him! Linda Winkler APRN.CNP * Telephone Encounter - Bjorn Calvillo RN - 10/15/2021 11:39 AM EDT Good afternoon, Pt would like to use the arthritis strength Tylenol, 2 tabs every 8 hours as needed; he feels that he gets better relief from muscle aches. Are you ok with this? He is also having very vivid dreams; I suggested that he try using the tylenol at night and hold off on the flexeril if he can to see if this may be the cause. Pt will be seeing you tomorrow and I plan to dc from home health next week. Thank you for following this home health pt. documented in this encounterMartin [facility]07-14-2022 Miscellaneous Notes* SN Routine - Bjorn Calvillo RN - 10/15/2021 11:29 AM EDT SITUATION: Detention routine visit completed today. friend also present during today's visit. patient reports the following: Allergies--reviewed Medications--reviewed current medications Falls--None BACKGROUND: Reason for Home Care: post CABG assessment and instruction ASSESSMENT: SN greeted at door by caregiver. Upon entrance patient found on couch. Patient appears in no acute distress. Patient/CG concerns verbalized today: no special concerns Vitals (see flow sheet for details): stable SN findings today: Pt is alert, sitting on couch, he ambulates with a steady gait in the home, useswalker when going out for ambulation exercises. Weight is down to 130. Pt reports that he has been eating fair. He reports that he has been having vivid dreams at night. Cg has been giving him a flexeril at night, SN instructed that this may be causing the dreams and to try just giving tylenol tonight. Pt would like to use the arthritis strength tylenol as this has workied better for him. Messagesent to Naina with this request. Sternal wound dermabond is debriding, no drainage, redness or evidence of complications. Pt appetite still not good, he states that this is normal for him, he continues to take 2 high protein Ensures every day. Pt is progressing well towards goals. See intervention summary for education details. Patient demonstrated a need for further skilled SN services for post CABG assessment and instruction. Current Discharge plan: OP rehab program RECOMMENDATION: Next visit to focus on (be specific): CP assessment and isntruction, plan to dc. documented in this encounterMartin [facility]07-08-2022 Miscellaneous Notes* SN Routine - Bjorn Calvillo RN - 10/09/2021 11:42 AM EDT SITUATION: Detention routine visit completed today. friend also present during today's visit. patient reports the following: Allergies--reviewed Medications--reviewed current medications Falls--None BACKGROUND: Reason for Home Care: post CABG assessment and instruction. ASSESSMENT: SN greeted at door by caregiver. Upon entrance patient found on couch Patient appears in no acute distress. Patient/CG concerns verbalized today: no special concerns Vitals (see flow sheet for details): stable SN findings today: Pt is alert and oriented, sitting on couch. He saw Kimmy Winkler CNP yesterday. Shedid renew pt's flexeril. Cg reports that she plans to give it at noon so that his back and his leftleg are not so sore when he does his ambulation exercises. She will give him one at bedtime to helphim relax and sleep. Pt weight is gradually going back up and he is eating better; it is back to baseline . All surgical wounds are clean and dry, sterstrips were removed from CT sites by [facility] yesterday and they remain scabbed and dry. No edema is present, lungs are clear. Pt reports that his bowels have softened with adding the Miralax daily. He states that he is still straining some but the stoolis not hard balls like it was before. SN reinforced instructions on adequqte fluids of 6-8 cups per day. Cg is giving the Miralax in apple juice. Pt is to follow up with Kimmy Winkler CNP on 10/16. See intervention summary for education details. Patient demonstrated a need for further skilled SN services for post CABG assessment and instruction. . Current Discharge plan: self-care and family support RECOMMENDATION: Next visit to focus on (be specific): post CABG assessment and instruction. documented in this encounterMartin [facility]07-07-2022 NoteHNO ID: [id number] Author: Linda Winkler APRN.ODALIS Service: ? Author Type: Nurse Practitioner Type: Progress Notes Filed: 10/10/2021 9:54 AM Note Text: HPI: Radha Brennan is a 66 year old male with PMH of coronary artery disease, hyperlipidemia, prior CVA, seizure disorder, atrial septal aneurysm, ongoing and prolonged tobacco use (1.5 packs of series per day, started age 5). ?In 2018, he underwent stenting with drug-eluting stents to the left anterior descending artery and second diagonal branch after presenting with anginal symptoms. He presented earlier this year with unstable anginal symptoms, underwent cardiac catheterization and was found to have severe multivessel disease include involving the LAD, D1, D2 ? He underwent CABG x [address] Dominguez on 09/21/2021. (GRAFTS: RIBEIRO in situ mammary end to side mid LAD, Vein graft ascending aorta end to side diagonal 2, ELIEL ascending aorta end to side diagonal 1). He did return to OR shortly after transfer to CVICU for increased chest tube output. A small area of arterial bleeding was identified in the L chest. Bleeding was controlled and he returned in stable condition to CVICU, where he was extubated on POD1 . On POD 1 (09/22), he had a convulsive seizure lasting 15 minutes, relieved with ativan, no recurrence. On POD 2 (09/23), he required a blood transfusion and also episode of atrial fibrillation which resolved with medical therapy. On POD 4, he was found to have fluid around his left lung, eventually requiring CT placement on POD 6 which was removed shortly thereafter. He continued to recover without issue and was deemed stable for discharge one week after surgery. Home health care will be checking in on you at home. ? OTHER PROBLEMS/DIAGNOSIS: Principal Problem: Coronary artery disease involving catawba coronary artery of catawba heart without angina pectoris Active Problems: S/P CABG x 3 Severe protein-calorie malnutrition (HCC) Nicotine use disorder, F17.2 Resolved Problems: Patient returns to the office today for one week post-discharge follow up . Interval events: none Radha Brennan reports home recovery as listed below: Patient is c/o: Mr Brennan walked in to this appointment, accompanied by his lady friend, from the parking garage all the way to the office. When he arrived to the office waiting room, he shares that he started experiencing sharp left sided chest pain 8/10. He was brought back to the exam room for evaluation, and reported after 10 minutes or so of rest that it had subsided to a dull left pectoral ache 2/10. Denies SOB. Endorses chronic cough. Continues to smoke 1 PPD. Admits [facility] [place] [facility] walks. [place] experienced similar symptoms that subsided with rest. At the time of this evaluation he was noted to have significant bilateral hand tremors that he admits he gets when he is in pain. Manual BP left arm 110/60, HR 80. Repeat BP automatic cuff 110/60, 100% on RA, RR 16. He remained with pink, warm, dry skin. EKG revealed SR 77 NSR, possible ZEB, t wave abnormality (inversion) to lateral leads (V4, V5, V6). Dr. Dominguez was in to examine patient. Compared previous EKG from 09/22/21. After about 20 minutes of rest, Radha denied any further discomfort. Episodes of dizziness or syncope: no Chest pain: yes, see above Palpitations: no BP: reviewed per home log: none available. His friend reports BPs obtained by [facility] have been around 115/x, HR 70-80s, with SPO2 around 94/95% Tolerating diet well without changing bowel habits: yes. Although lady friend feels she observes poor appetite. Continues daily or BID Boost supplements. Regular BM with help of miralax Fever, chills: no Activities at home with/without SOB or FREEMAN: walks -see above Post surgical pain with pain medications - bilateral pectoral pain. Relieved with PRN tylenol Leg edema: none Sleep: good, naps frequently throughout the day. Energy: fair Subjective: Current Outpatient Medications Medication Sig - acetaminophen (TYLENOL) 500 mg tablet Take 2 tablets by mouth four times daily for 14 days. - amiodarone (PACERONE) 200 mg tablet Take 1 tablet by mouth once daily for 5 days, THEN 0.5 tablets once daily. - ascorbic acid, vitamin C, (VITAMIN C) 500 mg tablet Take 1 tablet by mouth once daily. - ferrous sulfate 325 mg (65 mg iron) tablet Take 1 tablet by mouth once daily. - folic acid 1 mg tablet Take 1 tablet by mouth once daily. - gabapentin (NEURONTIN) 100 mg capsule Take 2 capsules by mouth twice daily for 14 days. - lidocaine (SALONPAS) 4 % patch Apply 1 Patch as directed once daily. - nicotine (NICODERM) 21 mg/24 hr Apply 1 Patch as directed once daily for 14 days. - metoprolol tartrate, short acting, (LOPRESSOR) 25 mg tablet Take 1 tablet by mouth every 12 hours. - magnesium oxide (MAG-OX) 400 mg (241.3 mg magnesiu (more content not included)...[facility]07-07-2022 Instructions* Patient Instructions* Linda Winkler APRN.CNP - 10/08/2021 11:55 AM EDT Weight: Please continue monitoring daily weight; keep monitoring your Blood Pressure at home. Activity:Continue gradual increase in activities as tolerated; Diet: Heart healthy diet with good protein intake; green leafy vegetable, low salt, and 2 L fluid daily. Encourage small frequent high protein meals or supplements. Devices: Wear supportive stockings until leg swelling improved; posthorax vest (up to 1 month) during daytime and off at nighttime; Restrictions: Continue the weight limit to less than 10 lbs (for one month), and no driving until cleared by your providers; Advice: please change position slowly to prevent fall due to dizziness; Upcoming appointments: Please follow up back here in 1 week Please make cardiology appointment in 4-6 weeks Please make primary care appointment in 4-6 weeks Thanks for coming in to see me today. Please call us if you have any concerns/questions: [phone] Linda Winkler APRN.CNP documented in this encounterMartin [facility]07-07-2022 History of Present illness Narrative* Linda Winkler APRN.CNP - 10/08/2021 11:31 AM EDT HPI: Radha Brennan is a 66 year old male with PMH of coronary artery disease, hyperlipidemia, prior CVA, seizure disorder, atrial septal aneurysm, ongoing and prolonged tobacco use (1.5 packs of series per day, started age 5). In 2018, he underwent stenting with drug-eluting stents to the left anteriordescending artery and second diagonal branch after presenting with anginal symptoms. He presented earlier this year with unstable anginal symptoms, underwent cardiac catheterization and was found to have severe multivessel disease include involving the LAD, D1, D2 He underwent CABG x [address] Dominguez on 09/21/2021. (GRAFTS: RIBEIRO in situ mammary end to side mid LAD, Vein graft ascending aorta end to side diagonal 2, ELIEL ascending aorta end to side diagonal 1). He did return to OR shortly after transfer to CVICU for increased chest tube output. A small area of arterial bleeding was identified in the L chest. Bleeding was controlled and he returned in stable condition to CVICU, where he was extubated on POD1 . On POD 1 (09/22), he had a convulsive seizure lasting 15 minutes, relieved with ativan, no recurrence. On POD 2 (09/23), he required a blood transfusion and also episode of atrial fibrillation which resolved with medical therapy. On POD 4, he was found to have fluid around his left lung, eventually requiring CT placement on POD 6 which was removed shortly thereafter. He continued to recover without issue and was deemed stable for discharge oneweek after surgery. Home health care will be checking in on you at home. OTHER PROBLEMS/DIAGNOSIS: Principal Problem: Coronary artery disease involving catawba coronary artery of catawba heart without angina pectoris Active Problems: S/P CABG x 3 Severe protein-calorie malnutrition (HCC) Nicotine use disorder, F17.2 Resolved Problems: Patient returns to the office today for one week post-discharge follow up . Interval events: none Radha Brennan reports home recovery as listed below: Patient is c/o: Mr Brennan walked in to this appointment, accompanied by his lady friend, from the parking garage all the way to the office. When he arrived to the office waiting room, he shares that he started experiencing sharp left sided chest pain 8/10. He was brought back to the exam room for evaluation, and reported after 10 minutes or so of rest that it had subsided to a dull left pectoral ache 2/10. Denies SOB. Endorses chronic cough. Continues to smoke 1 PPD. Admits he has been walking around the [place], brief shorter walks. Attempted 1/2 lap around the [place] and experienced similar symptoms that subsided with rest. At the time of this evaluation he was noted to have sig nificant bilateral hand tremors that he admits he gets when he is in pain. Manual BP left arm 110/60, HR 80. Repeat BP automatic cuff 110/60, 100% on RA, RR 16. He remained with pink, warm, dry skin.EKG revealed SR 77 NSR, possible ZEB, t wave abnormality (inversion) to lateral leads (V4, V5, V6).Dr. Dominguez was in to examine patient. Compared previous EKG from 09/22/21. After about 20 minutes of rest, Radha denied any further discomfort. Episodes of dizziness or syncope: no Chest pain: yes, see above Palpitations: no BP: reviewed per home log: none available. His friend reports BPs obtained by [facility] have been around 115/x, HR 70-80s, with SPO2 around 94/95% Tolerating diet well without changing bowel habits: yes. Although lady friend feels she observes poor appetite. Continues daily or BID Boost supplements. Regular BM with help of miralax Fever, chills: no Activities at home with/without SOB or FREEMAN: walks -see above Post surgical pain with pain medications - bilateral pectoral pain. Relieved with PRN tylenol Leg edema: none Sleep: good, naps frequently throughout the day. Energy: fair Subjective: Current Outpatient Medications Medication Sig acetaminophen (TYLENOL) 500 mg tablet Take 2 tablets by mouth four times daily for 14 days. amiodarone (PACERONE) 200 mg tablet Take 1 tablet by mouth once daily for 5 days, THEN 0.5 tablets once daily. ascorbic acid, vitamin C, (VITAMIN C) 500 mg tablet Take 1 tablet by mouth once daily. ferrous sulfate 325 mg (65 mg iron) tablet Take 1 tablet by mouth once daily. folic acid 1 mg tablet Take 1 tablet by mouth once daily. gabapentin (NEURONTIN) 100 mg capsule Take 2 capsules by mouth twice daily for 14 days. lidocaine (SALONPAS) 4 % patch Apply 1 Patch as directed once daily. nicotine (NICODERM) 21 mg/24 hr Apply 1 Patch as directed once daily for 14 days. metoprolol tartrate, short acting, (LOPRESSOR) 25 mg tablet Take 1 tablet by mouth every 12 hours. magnesium oxide (MAG-OX) 400 mg (241.3 mg magnesium) tablet Take 1 tablet by mouth once daily. thiamine (VITAMIN B1) 100 mg tablet 1 tablet by ORAL/FEEDING TUBE route three times daily. senna-docusate (SENNA-S) 8.6-50 mg per tablet Take 1 tablet by mouth twice daily. food supplemt, lactose-reduced (BOOST BREEZE NUTRITIONAL) 0.04-1.05 gram-kcal/mL Take 1 Can by mouth twice daily for 14 days. (Patient not taking: Reported on 10/01/2021) cyclobenzaprine (FLEXERIL) 5 mg tablet Take 5 mg by mouth three times daily as needed for muscle spasm. 09/30/21 NOT TAKING clopidogrel (PLAVIX) 75 mg tablet Take 75 mg by mouth once daily. lamoTRIgine (LAMICTAL) 25 mg tablet Take 50 mg by mouth twice daily. aspirin, enteric coated (ASPIRIN, ENTERIC COATED) 81 mg EC tablet Take 81 mg by mouth once daily. primidone (MYSOLINE) 50 mg tablet Take 75 mg by mouth twice daily. atorvastatin (LIPITOR) 40 mg tablet Take 40 mg by mouth once daily. nitroglycerin sublingual (NITROQUICK) 0.4 mg SL tablet Dissolve 1 tablet under the tongue every 5 minutes as needed for Chest Pain. May of three doses. No current facility-administered medications for this visit. Tuberculin, Purified Protein Derivative and Venom-Honey Bee PAST MEDICAL HISTORY Diagnosis Date Atherosclerosis of catawba coronary artery of catawba heart with angina pectoris (HCC) Atrial septal aneurysm Cerebrovascular accident (CVA) due to embolism of cerebral artery (HCC) 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 (HCC) LV dysfunction mild Mixed hyperlipidemia Seizure (HCC) Tobacco use disorder PAST SURGICAL HISTORY Procedure Laterality Date CABG (3) VEIN GRAFTS & ARTERIAL GRAFT(S) 09/21/2021 LUMBAR PUNCTURE OTHER 2017 ptca ZOLTAN to mid LAF and second diagonal PAST SURGICAL HISTORY OF lymph node resection FAMILY HISTORY Problem Relation Age of Onset Heart Attack Mother Heart Attack Brother Social History Tobacco Use Smoking status: Current Every Day Smoker Packs/day: 1.00 Years: 61.00 Pack years: 61.00 Types: Cigarettes Smokeless tobacco: Never Used Vaping Use Vaping Use: Never used Substance Use Topics Alcohol use: Yes Comment: 1 drink per month Drug use: Never Review of Systems Constitutional: Positive for malaise/fatigue and weight loss. Negative for chills, diaphoresis and fever. Respiratory: Positive for cough. Negative for hemoptysis, sputum production, shortness of breath and wheezing. Cardiovascular: Positive for chest pain. Negative for palpitations, orthopnea, claudication, leg swelling and PND. Gastrointestinal: Negative for abdominal pain, constipation, diarrhea, nausea and vomiting. Skin: Negative for itching and rash. Neurological: Positive for tremors. Negative for dizziness, tingling, focal weakness, seizures and headaches. Objective: Physical Examination: Vitals:There were no vitals taken for this visit. See HPI/ROS Last 2 Encounter Wt Readings: Date: Wt: 10/06/2021 130 lb (59 kg) 10/02/2021 131 lb (59.4 kg) Physical Exam Constitutional: General: He is not in acute distress. Comments: Thin, smells strongly of cigarettes HENT: Head: Normocephalic and atraumatic. Eyes: Extraocular Movements: Extraocular movements intact. Conjunctiva/sclera: Conjunctivae normal. Pupils: Pupils are equal, round, and reactive to light. Cardiovascular: Rate and Rhythm: Normal rate and regular rhythm. Pulses: Normal pulses. Heart sounds: Normal heart sounds. Pulmonary: Effort: Pulmonary effort is normal. Breath sounds: Normal breath sounds. Comments: Bilateral pectoral and sternal tenderness Chest: Chest wall: Tenderness present. Abdominal: General: Bowel sounds are normal. Palpations: Abdomen is soft. Musculoskeletal: Right lower leg: No edema. Left lower leg: No edema. Skin: General: Skin is warm and dry. Capillary Refill: Capillary refill takes 2 to 3 seconds. Comments: MSI and CT sites well approximated and healing. Sternal bones stable. No s/sx of infection. Left leg harvest sites well approximated and healing. No s/sx of infection Neurological: General: No focal deficit present. Mental Status: He is alert and oriented to person, place, and time. Psychiatric: Mood and Affect: Mood normal. Assessment and Plan: ASSESSMENT/PLAN: ASSESSMENT/PLAN: 1. S/P CABG x 3 - ICD9: V45.81, ICD10: Z95.1 (primary diagnosis) - Pt doing okay overall, recent episode of chest pain thought not to be anginal, but rather post operative discomfort/acute pain flare after aggressive activity walking to the office - reviewed modifying activities to shorter walks, stopping for rest if necessary - reviewed option of nitro PRN if CP does not subside with rest - Continue ASA 81 mg once daily, statin, betablocker - Pain controlled; continue ERAS. Resume previously taken flexeril for additional pain control PRN - Continue HH diet; reinforced low NA diet and 2Liter fluid restriction, daily weight monitoring - Continue thoracic vest and sternal precautions (no lifting, pushing, pulling > 10 lbs. No driving) - Continue TEDs and BLE elevation while in bed or chair - Continue IS, VNS, mobilization - Outpt cardiac rehab in 1 month: will discuss at next visit - Follow-up next week for close surveillance - Follow-up with [facility]/ in 1 month, will encourage patient to call to set up appointment at our next visit - ECG B/O WO INTERP (MED OFFICE) - CYCLOBENZAPRINE 5 MG TABLET 2. Coronary artery disease involving catawba coronary artery of cata[place]ba heart without angina pectoris- ICD9: 414.01, ICD10: I25.10 - remains on plavix 2/2 previous PCI - continue ASA, statin, BB 3. Paroxysmal atrial fibrillation (HCC) - ICD9: 427.31, ICD10: I48.0 - appears to be in regular rhythm at today's visit. - no c/o palpitations - continue BB and amio taper 4. Chronic obstructive pulmonary disease, unspecified COPD type (HCC) - ICD9: 496, ICD10: J44.9 5. Tobacco abuse - ICD9: 305.1, ICD10: Z72.0 - Cessation encouraged. - Physiologic and physical aspects of tobacco addiction were discussed. - Counseling was given focusing on the harmful effects of this addiction especially given the patient's medical condition(s) which will be worsened because of the chemicals in tobacco. - previously provided nicoderm patches - pt verbalized unable/ not willing to quit at this time 6. Acute blood loss anemia - ICD9: 285.1, ICD10: D62 - stable at 8.9 (09/26/21) 7.7 ( 09/25/21) - continues folic acid, ferrous sulfate, vitamin C 7. Severe protein-calorie malnutrition (HCC) - ICD9: 262, ICD10: E43 - continues BOOST TID - encouraged protein rich small frequent meals - continue daily weight monitorin Linda Winkler APRN.ODALIS Electronically signed by Linda Winkler APRN.CNP on October 08, 2021, 11:31 AM documented in this encounterMartin [facility]07-05-2022 Miscellaneous Notes* Telephone Encounter - Linda Winkler APRN.CNP - 10/06/2021 4:02 PM EDT Yes absolutely add miralax. Thanks! Linda Winkler APRN.ODALIS * Telephone Encounter - Bjorn Calvillo RN - 10/06/2021 3:53 PM EDT Good afternoon, Radha has been having trouble with his bowels, he is taking the senna twice a day along with adequate fluids and had a large BM on Tuesday which he says was was hard and he did end up straining quite a lot. Can I Irecommend adding Miralax daily or what do you recommend. He does not like prunes or prune juice. Please advise, thank you! documented in this encounterMartin [facility] Hospital07-05-2022 Miscellaneous Notes* SN Routine - Bjorn Calvillo RN - 10/06/2021 3:26 PM EDT SITUATION: Detention routine visit completed today. friend also present during today's visit. patient reports the following: Allergies--reviewed Medications--reviewed current medications Falls--None BACKGROUND: Reason for Home Care: post CABG assessment and instruction ASSESSMENT: SN greeted at door by caregiver. Upon entrance patient found in chair Patient appears in no acute distress. Patient/CG concerns verbalized today: pt is not happy with bowel movement frequency Vitals (see flow sheet for details): stable SN findings today: Pt is sitting at kitchen table. He reports that he is feeling better each day, doing walking exercises and getting outside to walk with cg supervision then weather is cool enough. Pt does continue to smoke. Cg reports that he has eaten better today than he has been. Cg has been adding some protien powder to his diet as well as the Ensure twice a day. All surgical wounds are dryand open to air. No evidence of infection or complications. Pt reports that his bowels last moved on Tuesday, he had reported that he did have to strain quite a bit to go at that time and does not want to get too constipated. He is taking the Senna twice a day, he seems to be drinking adequate fluids. SN messaged Kimmy Winkler regarding if Miralax can be added. She did message back later and gave the oK. This spoke with Kaykay, pt's friend who helps him with his meds, by phoneand gave her the instructions. She states that she has Miralax in the home and will give him a dose tonight. See intervention summary for education details. Patient demonstrated a need for further skilled SN services for post CABG asessment and instruction. . Current Discharge plan: self-care and family support RECOMMENDATION: Next visit to focus on (be specific): post CABG assessment and instruction, follow up on any changes from pt appt with Kimmy Cathi on 10/08. documented in this encounterMartin [facility] Hospital07-01-2022 Miscellaneous Notes* HH SN Routine - Bjorn Calvillo RN - 10/02/2021 4:30 PM EDT SITUATION: Detention routine visit completed today. friend also present during today's visit. patient reports the following: Allergies--reviewed Medications--reviewed current medications Falls--None BACKGROUND: Reason for Home Care: post CABG assessment and instruction. ASSESSMENT: SN greeted at door by caregiver. Upon entrance patient found in on couch Patient appears in no acute distress. Patient/CG concerns verbalized today: pt reports that he had some constipation yesterday, he statesthat he moved his bowels 4 times and did have to do some straining. Cg reports that she increased the senna back to twice a day and then also had him taking prune juice and bran cereal today. Vitals (see flow sheet for details): stable SN findings today: Pt is alert and oriented, is forgetful but not to the point of self jeopardy. Heremembered much of the instruction done at the first vs but some information had to be reinstructedand most of this had to do with use of ther sternal vest and nutrition. SN advised pt to keep his sternal vest on because he states that he cannot put it on himself and he cannot get it clipped back together on his own. He does not want to disturb anyone at night. He is agreeable to leaving the vest on. Sternal incision is dry, no drainage noted, there is some dry blood at base of sternal incision where the transparent dressing had disturbed the dermabond previously. R leg incision is dry with d ermabond intact. See intervention summary for education details. Patient demonstrated a need for further skilled SN services for chronic disease management & education, medication education, wound/skin care, safety and post CABG. Current Discharge plan: self-care and family support RECOMMENDATION: Next visit to focus on (be specific): post CABG assessment and instruction. documented in this encounterMartin [facility]06-29-2022 Miscellaneous Notes* Telephone Encounter - Bjorn Calvillo RN - 09/30/2021 12:48 PM EDT Good morning, a potential severe drug interaction that I am required to notify you of: Drug-Drug: amiodarone and primidone Concurrent use of barbiturates, carbamazepine, phenobarbital, phenytoin or primidone may result in decreased levels and effectiveness of amiodarone(1) and dronedarone.(2) Concurrent use of amiodaroneand phenytoin may also result in elevated levels of and toxicity from phenytoin.(1) Concurrent use of dronedarone and carbamazepine may also result in elevated levels of and toxicity from carbamazepine.(3). Thank you for your review. documented in this encounterMartin [facility] Hospital06-29-2022 Miscellaneous Notes* SN SOC - Bjorn Calvillo RN - 09/30/2021 12:29 PM EDT SITUATION: Detention SOC visit completed today. friend also present during today's visit. patient reports the following: Allergies--reviewed Medications--full medication reconciliation completed Falls--None DME-Reviewed and added to chart BACKGROUND: Discharged/Referral from acute care hospital on 09/28/21 following treatment for CABG x 3. Pertinent referral information or other diagnoses that may affect plan of care: CAD, severe malnutrition, nicotine use ASSESSMENT: SN greeted at door by caregiver. Upon entrance patient found on couch Patient appears in no acute distress. Patient lives at home with friend. Home environment: clean and has pets: several small doags. SOC booklet reviewed & completed with patient and consent obtained for Home Care services. Patient/CG concerns verbalized today: Vitals (see flow sheet for details): stable SN findings today: Pt is alert and oriented, laying on couch. He is currently staying with a friend, Kaykay, [place]. He is most likely going to be staying with herfor at least 4 weeks. Kaykay is a home health aide and is helping pt with med set up. Pt has short term memory issues and will need assistance with meds. This may be an ongoing issue. Pt is not a good historian and Kaykay was present for some of initial vs but needed to leave for work. This SN did contact her after full med rec was done, some discrepensies were found and these were corrected. Accurate med list is in the home and Kaykay instructed on the metoprolol dose-she only had the med in the pm. Post op assessment findings are: Mid sternal incision is closed with dermabond and there is a transparent film dressing with gauze and steristrips that are covering CT sites. This was removed today and pt has 3 CT sites that are covered with 1 steristrip each. There is no drainage, sites appear to be scabbed and dry. The transparent film dressing is on the very distal end of the sternal incision and there is a scant amount of light serosang drainage; most likely caused by the film dressing placement. There does not appear to be any sternal incision separation. Pt instructed to leave this areaopen to air, notify PSYCHIATRIC or Dr Dominguez's office of any noted separation of incision line. Pt has sternal vest but he has it disconnected. SN stressed the importance of him having the vest on when he is up and about. R inner knee incision is clean and dry with dermabond intact. No surrounding redness or swelling. Pt has a moderate amount of bruising to inner R thigh area, skin is soft and no edemais noted. Kaykay has been taking daily BP, HR and pulse ox but not weight. She was instructed on dailyam weights and concern if weight up 4 pounds overnight. Pt has the spirometer at his side and this SN reinforced instructions on using every hour while awake for his first week home. Pt admits that he is still smoking-this SN stressed the importance of miniimizing this for healing purposes and he reports that he has smoked less than 1ppd since coming home. Pt states that he has been smoking sincehe was 5 years old and he will continue to try to decrease. Pt is ambulating in the home with or without his rollater walker. He states that if he needs to use the bathroom; he does not use the walker. When doing the ambulation exercises, he does use it. Pt demonstrates that he can go from living room to bathroom with supervision not using the walker. Pt will require assistance and supervision with ADL's, ambulation, meds, meal prep, wound monitoring--Kaykay and her grandmalena are currently providing this. Pt has a long hx of malnutrition. much education provided onn nutrition and strategies to improve such as protein rich snacks and small frequent mels. Pt is also taking high protein Ensuretwice a day. See intervention summary for education details and skills performed. Plan of care and visit frequency established with patient and caregiver and plan of care agreed upon. Patient demonstrated a need for further skilled SN services for medication education, wound/skin care, safety and post CABG assessment and instruction. . RECOMMENDATION: Visit Frequency: 2 wk 2, 1 wk 2 Need for additional services: Patient agreeable to N/A referrals. Patient declined N/A referrals. Additional concerns to be followed up on: NONE Next visit to focus on (be specific): post CABG assessment and instruction, assess sternal wound for any drainage. documented in this encounterMartin [facility] Hospital06-27-2022 Miscellaneous Notes* Telephone Encounter - Krunal Flores LPN - 09/28/2021 2:56 PM EDT Voice message left at [phone] requesting a call back to confirm SOC Krunal Flores LPN Central Admissions Intake Nurse documented in this encounterMartin Memorial Hospital06-27-2022 NoteHNO ID: [id number] Author: Cathi Messer RN Service: Care Management Author Type: Registered Nurse Type: Care Mgt Progress Note Filed: 09/28/2021 12:52 PM Note Text: CARE MANAGEMENT DISCHARGE NOTE SERVICE DATE: 09/28/2021 SERVICE TIME: 12:52 PM LOS: 7 days Admission Date: 09/21/2021 DISCHARGE ARRANGEMENT (list agency and phone number) Discharge Arrangement: Home with Home Health Provider Name: PSYCHIATRIC CAREGIVER ASSESSMENT: Caregiver is ready, willing and able to meet the patient's needs as recommended by the inter-professional team:: Yes Patient's transition needs and plan for meeting these needs: [facility]OFF COMMUNICATION: TRANSPORTATION ARRANGEMENTS: Transportation Arrangements: [employer] Agency and Phone #:: [facility] ( [facility] ) [phone] / [phone] Date of Trip: 09/28/21 Time of Trip: 1700 Type of Service: BLS Non-emergency Is Patient Medicaid Pending?: No Was transportation financial coverage discussed with family?: Patient [employer] Location: [facility] Destination: Home Financial Care Management Responsibility: None ADDITIONAL CONTACT RESOURCES: W/C transport at 5pm. Home with [facility]. SIGNATURE: Cathi Messer RN PATIENT NAME: Radha Brennan DATE: September 28, 2021 TIME: 12:52 PM PAGER/CONTACT #: [phone] NoteHNO ID: [id number] Author: Cathi Messer RN Service: Care Management Author Type: Registered Nurse Type: Care Mgt Progress Note Filed: 09/28/2021 11:03 AM Note Text: CARE MANAGEMENT PROGRESS NOTE SERVICE DATE: 09/28/2021 SERVICE TIME: 11:02 AM LOS: 7 days IMM Follow Up Copy Given: Yes Copy given to:: Patient Method: In Person (Verbal) Chart reviewed. Plan for pt to return [facility]. W/C on standby for transport home. CM to follow. SIGNATURE: Cathi Messer RN PATIENT NAME: Radha Brennan DATE: September 28, 2021 TIME: 11:02 AM PAGER/CONTACT #: [phone] 09-27-2021 NoteHNO ID: [id number] Author: Tami Luna PA-C Service: Cardiovascular Surgery Author Type: Physician Vegetables Cook Type: Progress Notes Filed: 09/27/2021 1:30 PM Note Text: CARDIOTHORACIC SURGERY POSTOP PROGRESS NOTE SERVICE DATE: 09/27/2021 Subjective S/P SURGERY: Procedure(s) (LRB): PLEURAL DRAINAGE PERCUTANEOUS W/INSERTION OF INDWELLING CATHETER W/IMAGING GUIDANCE (Pending) DATE OF SURGERY: 09/27/2021 POSTOP DAY #6 LOS: 6 INTERVAL EVENTS / PERTINENT ROS:?Patient underwent CABG x [address] Dominguez on 09/21/2021. He was transferred to the CVICU in stable condition. Patient was on minimal pressor support, however chest tube output was more than expected. Patient was reversed and awoke aggressively when he became hypertensive briefly. At that time, chest tube output continued to increase. Patient was hemodynamically stable at that time. The decision was made to return to the OR to explore for active bleeding. Arterial bleeding was identified in the L chest near the mammary bed. Once bleeding was controlled intra-operatively, patient was brought back to CVICU in stable condition. He remained on the ventilator until around 9:30 AM?on 09/22.?On POD 1 (09/22), the patient had one episode of convulsions that lasted 15 minutes. Patient was given ativan. He did receive all of his anti-seizure medications?on the morning of surgery.?ON POD 2 (09/23), his hgb was 6.6 and one unit of PRBCs was ordered. Patient went into AF RvR around 8:45PM. ?Two rounds of IV metop were given and patient converted back to NSR at 9:13 AM. Oral dose of metoprolol was increased.?That evening, the patient again flipped into A fib and was started on an amio gtt.?On POD3,?the patient stayed in NSR and had an uneventful post-op day. On POD 4, the patient was found to have a new hydropneumothorax. The patient remained stable from a respiratory standpoint. Serial CXR did not show improvement of this finding. On POD 5 the patient should be referred to IR for drainage of this hydropneumothorax. This was completed on POD 6. The patient was seen and examined on POD 6 after placement of a chest tube for drainage of his pneumohemothorax. He tolerated the procedure well. He denies any pain. He states that he had a small lingering cough that has completely resolved since the chest tube was placed. He denies any SOB, nausea, headache, dizziness, or weakness. Objective Admission Weight: 63.5 kg (139 lb 15.9 oz) BP 116/84 Pulse 77 Temp 36.4 ?C (97.5 ?F) (Temporal) Resp 16 Ht 172.7 cm (5' 8) Wt 64 kg (141 lb) SpO2 97% BMI 21.44 kg/m? Body surface area is 1.75 meters squared. Min/Max/Average Temperature AND Blood Pressure: Temp (24hrs), Av.5 ?C (97.7 ?F), Min:36.2 ?C (97.2 ?F), Max:36.7 ?C (98.1 ?F) Systolic (24hrs), Av , Min:105 , Max:125 Diastolic (24hrs), Av, Min:58, Max:84 Intake/Output Summary (Last 24 hours) at 09/27/2021 1318 Last data filed at 09/27/2021 0900 Gross per 24 hour Intake 50 ml Output 1425 ml Net -1375 ml TELE: NSR PHYSICAL EXAM: General Appearance:?Resting comfortably; NAD Skin: Midsternal incision dry AND?intact without surrounding erythema, warmth, drainage; SVG intact without signs of infection. Neck: no JVD Lungs:?Normal effort. Saturating appropriately on RA. Heart:?RRR Neurologic/Psychiatric: oriented to time, place and person.?Intention tremor noted in right hand (baseline).??No focal neurologic deficits.? Extremities:?No edema appreciated in any extremity Lines, Drains, and Airways Line Peripheral 09/21/21 0654 Right Arm 18 Gauge 6 days Drain Chest Tube 09/27/21 1155 <1 day Chest Tube 09/27/21 1155 Left Anterior Pleural 10 Fr Tube #1 <1 day DATA: Diagnostic tests reviewed for today's visit: CXR: formal read pending. Recent Labs 09/27/21 0541 09/26/21 0510 09/25/21 0513 RBC -- 2.75* 2.33* WBC -- 11.28* 10.05 HB -- 8.9* 7.7* HCT -- 26.4* 23.0* PLT -- 260 213 NA 135* 138 138 K 3.9 4.0 4.1 CHLOR 101 102 103 CO2 26 26 29 BUN 17 11 10 CREAT 0.86 0.85 0.86 GLUC 117* 119* 109* CA 8.8 8.5 7.9* ANION 8* 10 6* Assessment/Plan ???MV CAD - POD #?6 - Previous history of stenting in 2018 (chronically on Plavix to be resumed in the future) - S/p CABG x 3; (RIBEIRO to LAD, SVG to diag, ELIEL to diag) - S/p bring back for continued bleeding; arterial bleeding identified and controlled - Medical management with ASA 162, Lipitor 40mg,?increased metoprolol to 25 BID? -?Discontinue central line.? - Pain control per modified ERAS d/t seizure history - Heart healthy diet; bowel regimen ordered; nutrition on board - Mobilize as able - OP cardiac rehab upon d/c? ? Hydropneumothorax -s/p chest tube placement in IR -scant dark red drainage appreciated in collection tubing. ?Post Op Respiratory Insufficiency? - Resolved - Extubated outside of the 6 hour goal - Currently on?RA - Encourage IS/ deep b (more content not included)...[facility]06[facility] NoteHNO ID: [id number] Author: Tami Luna PA-C Service: Cardiovascular Surgery Author Type: Physician Vegetables Cook Type: Progress Notes Filed: 09/27/2021 1:23 PM Note Text: CARDIOTHORACIC SURGERY POSTOP PROGRESS NOTE SERVICE DATE: 09/26/2021 Subjective S/P SURGERY: Procedure(s) (LRB): BYPASS GRAFT ARTERY CORONARY OFF PUMP TWO ARTERIAL GRAFTS (N/A) BYPASS GRAFT ARTERY CORONARY OFF PUMP VENOUS GRAFT(S) AND ARTERIAL GRAFT(S) SINGLE VEIN GRAFT (N/A) ENDOSCOPIC HARVEST VEIN FOR CORONARY ARTERY BYPASS PROCEDURE (N/A) DATE OF SURGERY: 09/21/2021 - 09/22/2021 POSTOP DAY #5 LOS: 5 INTERVAL EVENTS / PERTINENT ROS:?Patient underwent CABG x [address] Dominguez on 09/21/2021. He was transferred to the CVICU in stable condition. Patient was on minimal pressor support, however chest tube output was more than expected. Patient was reversed and awoke aggressively when he became hypertensive briefly. At that time, chest tube output continued to increase. Patient was hemodynamically stable at that time. The decision was made to return to the OR to explore for active bleeding. Arterial bleeding was identified in the L chest near the mammary bed. Once bleeding was controlled intra-operatively, patient was brought back to CVICU in stable condition. He remained on the ventilator until around 9:30 AM?on 09/22.?On POD 1 (09/22), the patient had one episode of convulsions that lasted 15 minutes. Patient was given ativan. He did receive all of his anti-seizure medications?on the morning of surgery.?ON POD 2 (09/23), his hgb was 6.6 and one unit of PRBCs was ordered. Patient went into AF RvR around 8:45PM. ?Two rounds of IV metop were given and patient converted back to NSR at 9:13 AM. Oral dose of metoprolol was increased.?That evening, the patient again flipped into A fib and was started on an amio gtt. On POD3, the patient stayed in NSR and had an uneventful post-op day. On POD 4, the patient was found to have a new hydropneumothorax. The patient remained stable from a respiratory standpoint. Serial CXR did not show improvement of this finding. On POD 5, the patient was seen and examined with Dr. Dominguez. The patient's CXRs were reviewed. It was determined that the patient should be referred to IR for drainage of this hydropneumothorax. The patient states that he feels extremely well. He denies pain. He denies any shortness of breath. He is ambulating frequently and is tolerating it well. He denies headache, dizziness, chest pain, nausea, vomiting, or any discomfort whatsoever. Objective Admission Weight: 63.5 kg (139 lb 15.9 oz) BP 140/68 Pulse 85 Temp 36.9 ?C (98.4 ?F) (Oral) Resp 16 Ht 172.7 cm (5' 8) Wt 64 kg (141 lb) SpO2 97% BMI 21.44 kg/m? Body surface area is 1.75 meters squared. Min/Max/Average Temperature AND Blood Pressure: Temp (24hrs), Av.8 ?C (98.3 ?F), Min:36.6 ?C (97.9 ?F), Max:37 ?C (98.6 ?F) Systolic (24hrs), Av , Min:104 , Max:140 Diastolic (24hrs), Av, Min:61, Max:78 Intake/Output Summary (Last 24 hours) at 09/26/2021 1316 Last data filed at 09/26/2021 1144 Gross per 24 hour Intake 360 ml Output 3850 ml Net -3490 ml TELEMETRY: normal sinus rhythm ? PHYSICAL EXAM: General Appearance:?Resting comfortably; NAD Skin: Midsternal incision dry AND?intact without surrounding erythema, warmth, drainage; SVG intact without signs of infection. Neck: no JVD Lungs:?Normal effort. Saturating appropriately on RA. Heart:?RRR Abdomen: soft, non-tender Neurologic/Psychiatric: oriented to time, place and person. Tremor noted in right hand (baseline). No focal neurologic deficits.? Extremities:?Minimal/trace edema to LE bilaterally Lines, Drains, and Airways Line Peripheral 09/21/21 0654 Right Arm 18 Gauge 5 days DATA: Diagnostic tests reviewed for today's visit: Chest X-RAY: Formal read in process. Reviewed with Dr. Dominguez. Persistent hydropneumothorax. Recent Labs 09/26/21 0510 09/25/21 0513 09/24/21 0511 RBC 2.75* 2.33* 2.31* WBC 11.28* 10.05 10.46 HB 8.9* 7.7* 7.3* HCT 26.4* 23.0* 22.3* PLT 260 213 165 NA 138 138 137 K 4.0 4.1 3.6* CHLOR 102 103 103 CO2 26 29 29 BUN 11 10 13 CREAT 0.85 0.86 0.79 GLUC 119* 109* 94 CA 8.5 7.9* 7.8* ANION 10 6* 5* Assessment/Plan ???MV CAD - POD #?5 - Previous history of stenting in 2018 (chronically on Plavix to be resumed in the future) - S/p CABG x 3; (RIBEIRO to LAD, SVG to diag, ELIEL to diag) - S/p bring back for continued bleeding; arterial bleeding identified and controlled - Medical management with ASA 162, Lipitor 40mg,?increased metoprolol to 25 BID? - Discontinue central line. - Pain control per modified ERAS d/t seizure history - Heart healthy diet; bowel regimen ordered; nutrition on board - Mobilize as able - OP cardiac rehab upon d/c ? Hydropneumothorax -CXR reviewed with Dr Dominguez -Patient without worsening SOB. Saturating well on R (more content not included)...[facility]06-24-2022 NoteHNO ID: [id number] Author: Tami Luna PA-C Service: Cardiovascular Surgery Author Type: Physician Vegetables Cook Type: Progress Notes Filed: 09/25/2021 2:26 PM Note Text: CARDIOTHORACIC SURGERY POSTOP PROGRESS NOTE SERVICE DATE: 09/25/2021 Subjective S/P SURGERY: Procedure(s) (LRB): BYPASS GRAFT ARTERY CORONARY OFF PUMP TWO ARTERIAL GRAFTS (N/A) BYPASS GRAFT ARTERY CORONARY OFF PUMP VENOUS GRAFT(S) AND ARTERIAL GRAFT(S) SINGLE VEIN GRAFT (N/A) ENDOSCOPIC HARVEST VEIN FOR CORONARY ARTERY BYPASS PROCEDURE (N/A) DATE OF SURGERY: 09/21/2021 - 09/22/2021 POSTOP DAY #4 LOS: 4 INTERVAL EVENTS / PERTINENT ROS:?Patient underwent CABG x [address] Dominguez on 09/21/2021. He was transferred to the CVICU in stable condition. Patient was on minimal pressor support, however chest tube output was more than expected. Patient was reversed and awoke aggressively when he became hypertensive briefly. At that time, chest tube output continued to increase. Patient was hemodynamically stable at that time. The decision was made to return to the OR to explore for active bleeding. Arterial bleeding was identified in the L chest near the mammary bed. Once bleeding was controlled intra-operatively, patient was brought back to CVICU in stable condition. He remained on the ventilator until around 9:30 AM on 09/22. On POD 1 (09/22), the patient had one episode of convulsions that lasted 15 minutes. Patient was given ativan. He did receive all of his anti-seizure medications on the morning of surgery. ON POD 2 (09/23), his hgb was 6.6 and one unit of PRBCs was ordered. Patient went into AF RvR around 8:45PM. ?Two rounds of IV metop were given and patient converted back to NSR at 9:13 AM. Oral dose of metoprolol was increased. That evening, the patient again flipped into A fib and was started on an amio gtt. On POD3, the patient stayed in NSR and had an uneventful post-op day. Today, the patient was seen and examined in CVICU. The patient denies pain. He states that he is walking frequently and feels nearly ready to go home. He denies chest pain, SOB, wheezing, palpitations, nausea, vomiting, dizziness, or lightheadedness. Objective Admission Weight: 63.5 kg (139 lb 15.9 oz) BP 120/71 Pulse 78 Temp 36.8 ?C (98.3 ?F) (Temporal) Resp 22 Ht 172.7 cm (5' 8) Wt 69.8 kg (153 lb 12.8 oz) SpO2 95% BMI 23.39 kg/m? Body surface area is 1.83 meters squared. Min/Max/Average Temperature AND Blood Pressure: Temp (24hrs), Av.7 ?C (98.1 ?F), Min:36.6 ?C (97.8 ?F), Max:36.8 ?C (98.3 ?F) Systolic (24hrs), Av , Min:93 , Max:132 Diastolic (24hrs), Av, Min:54, Max:72 Intake/Output Summary (Last 24 hours) at 09/25/2021 1409 Last data filed at 09/25/2021 1400 Gross per 24 hour Intake 881 ml Output 4675 ml Net -3794 ml TELEMETRY: normal sinus rhythm PHYSICAL EXAM: General Appearance: Resting comfortably; NAD Skin: Midsternal incision dry AND intact without surrounding erythema, warmth, drainage; SVG intact without signs of infection. Neck: no JVD and RIJ intact with clean and dry dressing Lungs: Normal effort. Saturating appropriately on RA. Clear to ausculation Heart: RRR Abdomen: soft, non-tender Neurologic/Psychiatric: oriented to time, place and person. Tremor noted in right hand (baseline). No focal neurologic deficits. Extremities:?1+ pitting edema to LE bilaterally Lines, Drains, and Airways Line Peripheral 09/21/21 0654 Right Arm 18 Gauge 4 days DATA: Diagnostic tests reviewed for today's visit: Chest X-RAY: IMPRESSION: 1. ?Mild to moderate left pneumothorax with mild left pleural effusion (hydropneumothorax). 2. ?Minimal right apical pneumothorax. Recent Labs 09/25/21 0513 09/24/21 0511 09/23/21 0427 RBC 2.33* 2.31* 2.06* WBC 10.05 10.46 12.33* HB 7.7* 7.3* 6.6* HCT 23.0* 22.3* 19.7* PLT 213 165 146* NA 138 137 131* K 4.1 3.6* 4.1 CHLOR 103 103 99 CO2 29 29 26 BUN 10 13 13 CREAT 0.86 0.79 0.83 GLUC 109* 94 122* CA 7.9* 7.8* 7.4* MG -- -- 1.8 ANION 6* 5* 6* Assessment/Plan ???MV CAD - POD #?3 - Previous history of stenting in 2018 (chronically on Plavix to be resumed in the future) - S/p CABG x 3; (RIBEIRO to LAD, SVG to diag, ELIEL to diag) - S/p bring back for continued bleeding; arterial bleeding identified and controlled - Medical management with ASA 162, Lipitor 40mg,?increased metoprolol to 25 BID? - Discontinue central line. - Pain control per modified ERAS d/t seizure history - Heart healthy diet; bowel regimen ordered; nutrition on board - Mobilize as able - OP cardiac rehab upon d/c Hydropneumothorax -CXR reviewed with Dr Dominguez -Patient without worsening SOB. Saturating well on RA at this time. -Will repeat CXR this afternoon to reassess. ?Post Op Respiratory Insufficiency -Resolved - Extubated outside of the 6 hour goal - Currently on RA - Encourage IS/ deep breathing/ cough ? ? (more content not included)...[facility]06-23-2022 NoteHNO ID: [id number] Author: SERGIO Rodriguez Service: Care Management 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 Type: Care Mgt Progress Note Filed: 09/24/2021 2:30 PM Note Text: CARE MANAGEMENT PROGRESS NOTE SERVICE DATE: 09/24/2021 SERVICE TIME: 2:27 PM LOS: 3 days Needs Prior to Discharge: To Be Determined;Home Care Order [place] of Choice Given: Yes Level of Care Discussed: Home Care Financial Disclosure Provided: Yes Financial Disclosure Comments: Disclosed [facility] affiliation Provider List: Other: See Comment (Declined list, no preference) SW met with pt at bedside to discuss home care. Pt is agreeable to [facility] at discharge. Pt is agreeable to [facility], [facility] are able to accept. Pt will need [facility] orders and transport home. SIGNATURE: SERGIO Rodriguez PATIENT NAME: Radha Brennan DATE: September 24, 2021 TIME: 2:27 PM PAGER/CONTACT #: [phone] NoteHNO ID: [id number] Author: Tami Luna PA-C Service: Cardiovascular Surgery Author Type: Physician Vegetables Cook Type: Progress Notes Filed: 09/24/2021 11:21 AM Note Text: CARDIOTHORACIC SURGERY POSTOP PROGRESS NOTE SERVICE DATE: 09/24/2021 Subjective S/P SURGERY: Procedure(s) (LRB): BYPASS GRAFT ARTERY CORONARY OFF PUMP TWO ARTERIAL GRAFTS (N/A) BYPASS GRAFT ARTERY CORONARY OFF PUMP VENOUS GRAFT(S) AND ARTERIAL GRAFT(S) SINGLE VEIN GRAFT (N/A) ENDOSCOPIC HARVEST VEIN FOR CORONARY ARTERY BYPASS PROCEDURE (N/A) DATE OF SURGERY: 09/21/2021 - 09/22/2021 POSTOP DAY #3 LOS: 3 INTERVAL EVENTS / PERTINENT ROS: Patient underwent CABG x [address] Dominguez on 09/21/2021. He was transferred to the CVICU in stable condition. Patient was on minimal pressor support, however chest tube output was more than expected. Patient was reversed and awoke aggressively when he became hypertensive briefly. At that time, chest tube output continued to increase. Patient was hemodynamically stable at that time. The decision was made to return to the OR to explore for active bleeding. Arterial bleeding was identified in the L chest near the mammary bed. Once bleeding was controlled intra-operatively, patient was brought back to CVICU in stable condition. He remained on the ventilator until around 9:30 AM on 09/22. On POD 1 (09/22), the patient had one episode of convulsions that lasted 15 minutes. Patient was given ativan. He did receive all of his anti-seizure medications on the morning of surgery. ON POD 2 (09/23), his hgb was 6.6 and one unit of PRBCs was ordered. Patient went into AF RvR around 8:45PM. Two rounds of IV metop were given and patient converted back to NSR at 9:13 AM. Oral dose of metoprolol was increased. That evening, the patient again flipped into A fib and was started on an amio gtt. This morning (POD 3), the patient was seen in CVICU. He is hemodynamically stable and in NSR. He is currently resting comfortably with no surgical site pain. He denies any complaints including nausea, vomiting, dizziness, abdominal pain, or SOB. Objective Admission Weight: 63.5 kg (139 lb 15.9 oz) BP 97/58 Pulse 80 Temp 36 ?C (96.8 ?F) (Temporal) Resp 17 Ht 172.7 cm (5' 8) Wt 69.8 kg (153 lb 12.8 oz) SpO2 96% BMI 23.39 kg/m? Body surface area is 1.83 meters squared. Min/Max/Average Temperature AND Blood Pressure: Temp (24hrs), Av.3 ?C (97.3 ?F), Min:35.8 ?C (96.44 ?F), Max:37.1 ?C (98.78 ?F) Systolic (24hrs), Av , Min:83 , Max:129 Diastolic (24hrs), Av, Min:45, Max:74 Intake/Output Summary (Last 24 hours) at 09/24/2021 1109 Last data filed at 09/24/2021 0637 Gross per 24 hour Intake 963 ml Output 4720 ml Net -3757 ml TELEMETRY: normal sinus rhythm PHYSICAL EXAM: General Appearance: Resting comfortably; NAD Skin: Midsternal incision dry AND intact without surrounding erythema, warmth, drainage; SVG intact without signs of infection and proxmial leg with moderate linear pattern ecchymosis Neck: no JVD and RIJ intact with clean and dry dressing Lungs: Normal effort. Saturating appropriately on RA Heart: RRR Peripheral Vascular/Arteries: pulses intact; dorsalis pedis 2+ and radial 2+ Abdomen: soft, non-tender Neurologic/Psychiatric: oriented to time, place and person. No focal neurologic deficits. Extremities: 1+ pitting edema to LE bilaterally Lines, Drains, and Airways Line Central Line Quadruple Lumen 09/21/21 0810 Non-tunneled Right 3 days Peripheral 09/21/21 0654 Right Arm 18 Gauge 3 days Drain External Collection Device 09/23/21 1428 <1 day DATA: Diagnostic tests reviewed for today's visit: CXR: IMPRESSION: Status post removal left-sided chest tube. Trace left apical pneumothorax. Recent Labs 09/24/21 0511 09/23/21 0427 09/22/21 0517 09/22/21 0505 09/22/21 0025 09/21/21 1925 09/21/21 1401 RBC 2.31* 2.06* -- 2.38* < > 2.94* 3.40* WBC 10.46 12.33* -- 16.50* < > 21.66* 28.06* HB 7.3* 6.6* -- 7.9* < > 9.7* 11.1* HCT 22.3* 19.7* -- 23.4* < > 28.4* 33.0* PLT 165 146* -- 203 < > 213 236 INR -- -- -- -- -- -- 1.1 APTT -- -- -- -- -- 33.7* 33.3* NA 137 131* -- 134* < > -- 137 K 3.6* 4.1 -- 4.5 < > -- 4.3 CHLOR 103 99 -- 106* < > -- 105 CO2 29 26 -- 22 < > -- 23 BUN 13 13 -- 15 < > -- 15 CREAT 0.79 0.83 -- 0.80 < > -- 1.04 GLUC 94 122* -- 92 < > -- 141* ICAL -- -- 1.12 -- -- -- 1.25 CA 7.8* 7.4* -- 7.5* < > -- 8.1* MG -- 1.8 -- 1.9 -- -- 2.4* ANION 5* 6* -- 6* < > -- 9 < > = values in this interval not displayed. Recent Labs 09/22/21 0517 09/21/21 2210 09/21/21 1401 09/21/21 1320 09/21/21 1213 PH 7.36 -- 7.22* -- -- PCO2 44 50.9* 60* 52.6* 47.3* PO2 91 238* 130* 178* 409* BE -- -1 -- -3* 0 HCO3 24 25.1 23 24.1 25.8 CO2CT 23 -- 22 -- -- O2HB 95 -- 95 -- -- COHB 1.0 -- 2.0 -- -- MHGB <1.0 -- 1.1 -- -- PHTC 7.37 -- 7.23* -- -- PCO2T 43 -- 56* -- -- PO2T 88 -- 122* -- -- (more content not included)...[facility] 09-24-2021 NoteHNO ID: [id number] Author: Rachelle Ramos MD Service: Critical Care Author Type: Physician Type: Progress Notes Filed: 09/24/2021 12:19 PM Note Text: CRITICAL CARE PROGRESS NOTE SERVICE DATE: September 24, 2021 SERVICE TIME: 12:18 PM Admission Date: 09/21/2021 AGE: 66 yea LOS: 3 days REASON FOR ICU ADMISSION: S/P CABG 09/21/2021 Subjective OVERNIGHT EVENTS: Objective 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 (HCC) - 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 (HCC) - LV dysfunction mild - Mixed hyperlipidemia - Seizure (HCC) - Tobacco use disorder PAST SURGICAL HISTORY Procedure Laterality Date - LUMBAR PUNCTURE - OTHER 2018 ptca ZOLTAN to mid LAF and second diagonal - PAST SURGICAL HISTORY OF lymph node resection Social History Tobacco Use - Smoking status: Current Every Day Smoker Packs/day: 1.00 Years: 61.00 Pack years: 61.00 Types: Cigarettes - Smokeless tobacco: Never Used Vaping Use - Vaping Use: Never used Substance Use Topics - Alcohol use: Yes Comment: 1 drink per month - Drug use: Never VITAL SIGNS: BP 109/61 Pulse 79 Temp 36 ?C (96.8 ?F) (Temporal) Resp 19 Ht 172.7 cm (5' 8) Wt 69.8 kg (153 lb 12.8 oz) SpO2 95% BMI 23.39 kg/m? Temp (24hrs), Av.3 ?C (97.3 ?F), Min:35.8 ?C (96.44 ?F), Max:37.1 ?C (98.78 ?F) Vital signs reviewed. 24 hour Intake AND Output: Intake/Output Summary (Last 24 hours) at 09/24/2021 1218 Last data filed at 09/24/2021 0637 Gross per 24 hour Intake 603 ml Output 3790 ml Net -3187 ml PHYSICAL EXAM: OVERHEAD CRANE TECHNICIAN: Alert and oriented Eyes: PER Neck: Unremarkable; No adenopathy or JVD Cardiovascular: Regular rhythm Respiratory: Clear to auscultation Abdomen: Soft and Nontender Extremities: Edema- No Skin: Abnormalities- No VENTILATOR INFORMATION: WEANING DATA: Settings: Invasive Ventilator Mode (Select One): Pressure Support, CPAP (PC-CSVs) (09/22/21 0840) %FIO2: 30 Set Ventilator Respiratory Rate (BPM): 12 Invasive Ventilator Tidal Volume Set (mL): 450 PEEP/CPAP (cm H2O): 5 Patient Data: Peak Inspiratory Pressure (cm H2O): 10 Plateau Pressure (cm H2O): 5 Weaning Data: Spontaneous Tidal Volume (mL): 776 Spontaneous Respiratory Rate (BPM): 25 Rapid Shallow Breathing Index (RSBI): 32.22 INDWELLING CATHETERS: Lines, Drains, and Airways Line Central Line Quadruple Lumen 09/21/21 0810 Non-tunneled Right 3 days Peripheral 09/21/21 0654 Right Arm 18 Gauge 3 days Drain External Collection Device 09/23/21 1428 <1 day INPATIENT MEDICATIONS: Current Facility-Administered Medications Medication Dose Route Frequency - NaCl 0.9% iv flush bag 20 mL INTRAVENOUS PRN - lamoTRIgine 50 mg tab(s) (LaMICtal) 50 mg ORAL DAILY - primidone 50 mg tab(s) (MYSOLINE) 50 mg ORAL BID - enoxaparin 40 mg injection (LOVENOX) 40 mg SUBCUTANEOUS DAILY - sodium chloride 0.9 % (flush) 10 mL (BD POSIFLUSH) 10 mL INTRAVENOUS q 12 H - sodium chloride 0.9 % (flush) 20 mL (BD POSIFLUSH) 20 mL INTRAVENOUS PRN - NaCl 0.9% iv flush bag 20 mL INTRAVENOUS PRN - albuterol 2.5 mg /3 mL (0.083 %) 2.5 mg (PROVENTIL) 2.5 mg INHALATION q 2 H PRN - aspirin 162 mg chewable tab(s) 162 mg ORAL DAILY - atorvastatin 40 mg tab(s) (LIPITOR) 40 mg ORAL AT BEDTIME - ondansetron (PF) 4 mg injection (ZOFRAN) 4 mg INTRAVENOUS q 6 H PRN - potassium chloride iv piggyback 20 mEq/100 mL 20 mEq INTRAVENOUS PRN - magnesium sulfate 2 g in sterile water 50 ml 2 g INTRAVENOUS PRN(NO DISPENSE) - acetaminophen 1,000 mg tab(s) (TYLENOL) 1,000 mg ORAL QID - gabapentin 200 mg cap(s) (NEURONTIN) 200 mg ORAL BID - lidocaine 4 % 1 Patch (SALONPAS) 1 Patch TRANSDERMAL DAILY And - lidocaine patch - REMOVE OTHER AT BEDTIME And - lidocaine - VERIFY PATCH OTHER q 8 H - magnesium oxide 400 mg tab(s) (MAG-OX) 400 mg ORAL DAILY - lactated ringers 250 mL iv bolus 250 mL INTRAVENOUS PRN - oxyCODONE IR 5-10 mg tab(s) (ROXICODONE) 5-10 mg ORAL q 3 H PRN - fentaNYL 50 mcg/mL 25-50 mcg injection (SUBLIMAZE) 25-50 mcg INTRAVENOUS q 1 H PRN - nicotine -- REMOVE patch OTHER DAILY - nicotine - verify patch OTHER q 8 H - pantoprazole DR 40 mg tab(s) (PROTONIX) 40 mg ORAL DAILY (6 AM) - senna-docusate 8.6-50 mg 1 tablet (SENNA-S) 1 tablet ORAL BID - [START ON 09/26/2021] bisacodyl 10 mg suppository (DULCOLAX) 10 mg RECTAL DAILY PRN - dextrose 15 gram/32 mL 15 g (TRUEPLUS) 15 g ORAL PRN Or - glucagon 1 mg injection 1 mg INTRAMUSCULAR PRN Or - dextrose 10% iv bolus 12.5 g INTRAVENOUS PRN - thiamine 200 mg in NaCl 0.9% 50 mL (VITAMIN B1) 200 mg INTRAVENOUS q 8 H Followed by - [START ON 09/25/2021] thiamine 100 mg tab(s) (VITAMIN B1) 100 mg ORAL/FEEDING TUBE TID - LORazepam 4 mg (A (more content not included)...[facility] 09-23-2021 NoteHNO ID: [id number] Author: SERGIO Rodriguez Service: Care Management 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 Type: Care Mgt Progress Note Filed: 09/23/2021 12:11 PM Note Text: CARE MANAGEMENT PROGRESS NOTE SERVICE DATE: 09/23/2021 SERVICE TIME: 12:05 PM LOS: 2 days Needs Prior to Discharge: Home Care Order;OT/PT Evaluation;To Be Determined;Facility or Agency Choices SW met with pt at bedside to discuss PT/OT recommendations for home care. Pt awoke but kept falling asleep. SW had sent a referral [facility] and [facility] are able to accept. This will need to be discussed with pt once more awake. SIGNATURE: SERGIO Rodriguez PATIENT NAME: Radha Brennan DATE: September 23, 2021 TIME: 12:05 PM PAGER/CONTACT #: [phone] NoteHNO ID: [id number] Author: John Reed PA-C Service: Cardiovascular Surgery Author Type: Physician Vegetables Cook Type: Progress Notes Filed: 09/23/2021 12:11 PM Note Text: CARDIOTHORACIC SURGERY POSTOP PROGRESS NOTE SERVICE DATE: 09/23/2021 SERVICE TIME: 10:31 AM Subjective S/P SURGERY: Procedure(s) (LRB): CABG x 3 and subsequent bring back for exploration/bleeding DATE OF SURGERY: 09/21/2021 - 09/22/2021 POSTOP DAY #2 LOS: 1 INTERVAL EVENTS / PERTINENT ROS: Patient underwent CABG x [address] Dominguez on 09/21/2021. He was transferred to the CVICU in stable condition. Patient was on minimal pressor support, however chest tube output was more than expected. Patient was reversed and awoke aggressively when he became hypertensive briefly. At that time, chest tube output continued to increase. Patient was hemodynamically stable at that time. The decision was made to return to the OR to explore for active bleeding. Arterial bleeding was identified in the L chest near the mammary bed. Once bleeding was controlled intra-operatively, patient was brought back to CVICU in stable condition. He remained on the ventilator until around 9:30 AM this morning. 09/22: Patient had one episode of convulsions that lasted 15 minutes. Patient was given ativan. He did receive all of his anti-seizure medications yesterday. 09/23: Patient seen and examined this morning with Dr. Dominguez at the bedside. He is POD 2 today. His hgb was 6.6 and one unit of PRBCs was ordered. Patient went into AF RvR around 8:45. Two rounds of IV metop were given and patient converted back to NSR at 9:13 AM. Oral dose of metoprolol was increased. Patient denies any pain or shortness of breath at this time. He is hemodynamically stable off all pressor support. Patient is AANDO x 3. He is saturating well on 4L NC. He reports a better night of sleep than the prior. There were no other acute events through the night. All labs and imaging were reviewed. Objective Admission Weight: 63.5 kg (139 lb 15.9 oz) BP 143/67 Pulse (!) 157 Temp 36.6 ?C (97.88 ?F) Resp 19 Ht 172.7 cm (5' 8) Wt 69.8 kg (153 lb 12.8 oz) SpO2 100% BMI 23.39 kg/m? Body surface area is 1.83 meters squared. Min/Max/Average Temperature AND Blood Pressure: Temp (24hrs), Av.2 ?C (98.9 ?F), Min:36.3 ?C (97.3 ?F), Max:38 ?C (100.4 ?F) Systolic (24hrs), Av , Min:94 , Max:115 Diastolic (24hrs), Av, Min:28, Max:73 Intake/Output Summary (Last 24 hours) at 09/23/2021 1154 Last data filed at 09/23/2021 0909 Gross per 24 hour Intake 4482.9 ml Output 3790 ml Net 692.9 ml TELEMETRY: normal sinus rhythm with PACs PHYSICAL EXAM: General Appearance: Thin but well appearing and sitting upright in bed; in NAD Skin: Midsternal incision dry AND intact without surrounding erythema, warmth, drainage; SVG intact without signs of infection and proxmial leg with moderate linear pattern ecchymosis likely d/t RENY wrap and thin body habitus Neck: no JVD and RIJ intact with clean and dry dressing Lungs: Clear to auscultation throughout without wheezing, crackles, rhonchi; normal respiratory effort Heart: regular rhythm and S1, S2 normal Peripheral Vascular/Arteries: pulses intact, dorsalis pedis 2+ and radial 2+ Abdomen: soft, non-tender and bowel sounds present Neurologic/Psychiatric: oriented to time, place and person, alert and objects conservator strength 5/5 Extremities: mild 1+ pitting edema to LE bilaterally; non pitting edema to UE bilaterally Lines, Drains, and Airways Line Arterial Line/Sheath 09/21/21 0826 Left Radial 2 days Central Line Quadruple Lumen 09/21/21 0810 Non-tunneled Right 2 days Peripheral 09/21/21 0654 Right Arm 18 Gauge 2 days Drain Chest Tube Left Anterior Pleural 28 Fr Tube #2 -- days Chest Tube 09/21/21 Right Anterior Pleural 28 Fr Tube #1 2 days Chest Tube 09/21/21 2244 Anterior Mediastinal 32 Fr Tube #3 1 day DATA: Diagnostic tests reviewed for today's visit: Chest X-RAY: Minimal atelectasis at the lung bases. Recent Labs 09/23/21 0427 09/22/21 0517 09/22/21 0505 09/22/21 0025 09/21/21 1925 09/21/21 1401 RBC 2.06* -- 2.38* 2.44* 2.94* 3.40* WBC 12.33* -- 16.50* 15.29* 21.66* 28.06* HB 6.6* -- 7.9* 7.9* 9.7* 11.1* HCT 19.7* -- 23.4* 23.7* 28.4* 33.0* PLT 146* -- 203 189 213 236 INR -- -- -- -- -- 1.1 APTT -- -- -- -- 33.7* 33.3* NA 131* -- 134* 137 -- 137 K 4.1 -- 4.5 4.9 -- 4.3 CHLOR 99 -- 106* 107* -- 105 CO2 26 -- 22 23 -- 23 BUN 13 -- 15 15 -- 15 CREAT 0.83 -- 0.80 0.90 -- 1.04 GLUC 122* -- 92 89 -- 141* ICAL -- 1.12 -- -- -- 1.25 CA 7.4* -- 7.5* 7.1* -- 8.1* MG 1.8 -- 1.9 -- -- 2.4* ANION 6* -- 6* 7* -- 9 Recent Labs 09/22/21 0517 09/21/21 2210 09/21/21 1401 09/21/21 1320 09/21/21 1213 PH 7.36 -- 7.22* -- -- PCO2 44 50.9* 60* 52.6* 47.3* PO2 91 238* 130* 178* 409* BE -- -1 -- -3* 0 HCO3 24 25.1 23 24.1 25.8 CO2CT 23 -- 22 -- -- O2HB 95 -- 95 (more content not included)...[facility] 09-23-2021 NoteHNO ID: [id number] Author: Thai Peter MD Service: Critical Care Author Type: Physician Type: Progress Notes Filed: 09/23/2021 5:28 PM Note Text: MICU - PROGRESS NOTE SERVICE DATE: September 23, 2021 Admission Date: 09/21/2021 AGE: [age] year old LOS: 2 days Subjective Setting up in chair when seen on rounds. Feeling pretty good and says he slept OK. No SOB or palpitations. Pain controlled. Off vasopressors. SaO2 99% on 4l/min. 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 Severe Protein-Calorie Malnutrition (Hcc) 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 (HCC) - 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 (HCC) - LV dysfunction mild - Mixed hyperlipidemia - Seizure (HCC) - Tobacco use disorder PAST SURGICAL HISTORY Procedure Laterality Date - LUMBAR PUNCTURE - OTHER 2018 ptca ZOLTAN to mid LAF and second diagonal - PAST SURGICAL HISTORY OF lymph node resection Social History Tobacco Use - Smoking status: Current Every Day Smoker Packs/day: 1.00 Years: 61.00 Pack years: 61.00 Types: Cigarettes - Smokeless tobacco: Never Used Vaping Use - Vaping Use: Never used Substance Use Topics - Alcohol use: Yes Comment: 1 drink per month - Drug use: Never VITAL SIGNS (last 24hrs min/max): Temp Av.6 ?C (97.9 ?F) Min: 35.4 ?C (95.72 ?F) Max: 37.6 ?C (99.7 ?F) Pulse Av Min: 0 Max: 196 Arterial BP 1 Min: 6/-18 Max: 252/240 Cuff BP Min: 101/71 Max: 115/83 Pain Level: 7 Vital signs reviewed. BP 135/67 Pulse 97 Temp (Src) 100.1 (Temporal) Resp 19 Ht 5' 8 (1.73m) Wt 153 lb 12.8 oz (69.8kg) SpO2 99% BMI 23.39 kg/(m2). O2 Therapy: Nasal Cannula, Liters: 4 Temp (24hrs), Av.7 ?C (99.9 ?F), Min:36.3 ?C (97.3 ?F), Max:38.1 ?C (100.58 ?F) NET FLUID BALANCE Intake/Output Summary (Last 24 hours) at 09/23/2021 0755 Last data filed at 09/23/2021 0600 Gross per 24 hour Intake 3717.7 ml Output 3625 ml Net 92.7 ml MEDICATIONS Current Facility-Administered Medications Medication Dose Route Frequency - metoprolol tartrate (short acting) 12.5 mg tab(s) (LOPRESSOR) 12.5 mg ORAL q 12 H - NaCl 0.9% iv flush bag 20 mL INTRAVENOUS PRN - pantoprazole DR 40 mg tab(s) (PROTONIX) 40 mg ORAL DAILY (6 AM) - senna-docusate 8.6-50 mg 1 tablet (SENNA-S) 1 tablet ORAL BID - dextrose 15 gram/32 mL 15 g (TRUEPLUS) 15 g ORAL PRN Or - glucagon 1 mg injection 1 mg INTRAMUSCULAR PRN Or - dextrose 10% iv bolus 12.5 g INTRAVENOUS PRN - thiamine 200 mg in NaCl 0.9% 50 mL (VITAMIN B1) 200 mg INTRAVENOUS q 8 H - LORazepam 4 mg (ATIVAN) 4 mg ORAL q 1 H PRN Or - LORazepam 4 mg injection (ATIVAN) 4 mg INTRAVENOUS q 1 H PRN - lamoTRIgine 50 mg tab(s) (LaMICtal) 50 mg ORAL DAILY - primidone 50 mg tab(s) (MYSOLINE) 50 mg ORAL BID - enoxaparin 40 mg injection (LOVENOX) 40 mg SUBCUTANEOUS DAILY - sodium chloride 0.9 % (flush) 10 mL (BD POSIFLUSH) 10 mL INTRAVENOUS q 12 H - sodium chloride 0.9 % (flush) 20 mL (BD POSIFLUSH) 20 mL INTRAVENOUS PRN - NaCl 0.9% iv flush bag 20 mL INTRAVENOUS PRN - lactated ringers iv infusion 50 mL/hr INTRAVENOUS CONTINUOUS - albuterol 2.5 mg /3 mL (0.083 %) 2.5 mg (PROVENTIL) 2.5 mg INHALATION q 2 H PRN - aspirin 162 mg chewable tab(s) 162 mg ORAL DAILY - atorvastatin 40 mg tab(s) (LIPITOR) 40 mg ORAL AT BEDTIME - ondansetron (PF) 4 mg injection (ZOFRAN) 4 mg INTRAVENOUS q 6 H PRN - potassium chloride iv piggyback 20 mEq/100 mL 20 mEq INTRAVENOUS PRN - magnesium sulfate 2 g in sterile water 50 ml 2 g INTRAVENOUS PRN(NO DISPENSE) - acetaminophen 1,000 mg tab(s) (TYLENOL) 1,000 mg ORAL QID - gabapentin 200 mg cap(s) (NEURONTIN) 200 mg ORAL BID - lidocaine 4 % 1 Patch (SALONPAS) 1 Patch TRANSDERMAL DAILY And - lidocaine patch - REMOVE OTHER AT BEDTIME And - lidocaine - VERIFY PATCH OTHER q 8 H - magnesium oxide 400 mg tab(s) (MAG-OX) 400 mg ORAL DAILY - lactated ringers 250 mL iv bolus 250 mL INTRAVENOUS PRN - oxyCODONE IR 5-10 mg tab(s) (ROXICODONE) 5-10 mg ORAL q 3 H PRN - fentaNYL 50 mcg/mL 25-50 mcg injection (SUBLIMAZE) 25-50 mcg INTRAVENOUS q 1 H PRN - nicotine -- REMOVE patch OTHER DAILY - nicotine - verify patch OTHER q 8 H Lines, Drains, and Airways Line Peripheral 09/21/21 0654 Right Arm 18 Gauge 2 days Arterial Line/Sheath 09/21/21 0826 Left Radial 1 day Central Line Quadruple Lumen 09/21/21 0810 Non-tunneled Ri (more content not included)...[facility]06-21-2022 NoteHNO ID: [id number] Author: Anisha Blanco ([employer]) Service: Pharmacy Author Type: Drug Clerk Type: Plan of Care Filed: 09/22/2021 4:21 PM Note Text: PHARMACY MEDICATION REVIEW Patient Name: Radha Brennan : 1955 The following medications were updated within the COST CONSULTANT medication list: Medications ADDED to COST CONSULTANT medication list ? Medications CHANGED on [facility] CONS[employer]ANT medication list cyclobenzaprine (FLEXERIL) 5 mg tablet Take 5 mg by mouth three times daily as needed for muscle spasm. lamoTRIgine (LAMICTAL) 25 mg tablet Take 50 mg by mouth twice daily. primidone (MYSOLINE) 50 mg tablet Take 75 mg by mouth twice daily. ? Medications REMOVED from [employer]ST CONSULTANT medication list acetaminophen (TYLENOL ORAL) Course of therapy completed metoprolol tartrate, short acting, (LOPRESSOR) 25 mg tablet Auto ? Additional comments: Verified medication information with [facility] pharmacy and chart review. Did not confirm with patient/family. Did not check taking box. Removed acetaminophen and metoprolol tartrate from med list - both short course 1 day dose for surgery 09/21/21. Corrected Flexeril Sig per pharmacy to TID PRN (09/09/2021 for 7 days) - left on even though short course since it is PRN. Corrected Lamictal Sig per pharmacy to BID (08/11/2021 for 30 days) and primidone Sig from 50 mg BID to 75 mg BID (09/13/2021 for 30 days). Required follow up actions for nursing: Please verify medications with patient/family. The below information represents the best possible medication history: Yes Medication history completed by: Drug Clerk: Anisha Blanco ([employer]) Source of history: Pharmacy records: [facility] [phone] and [facility] records Medication nonadherence identified: Unable to assess Reconciliation completed: No, pharmacist not yet reviewed Patient interested in Bedside Delivery Services or using OP Pharmacy at discharge? Unable to assess Preferred outpatient pharmacy: [facility] [place] [address] [facility] [phone] [facility]- [facility] [address] - [place] [address] [address] [facility] [phone] [facility] Allergies: Tuberculin, Purifie* Swelling Venom-Honey Bee Swelling Comment:Actually black and yellow bumble bees per pt Prior to Admission Medications Prescriptions Last Dose Informant Patient Reported? Taking? aspirin, enteric coated (ASPIRIN, ENTERIC COATED) 81 mg EC tablet Yes Yes Sig: Take 81 mg by mouth once daily. atorvastatin (LIPITOR) 40 mg tablet 09/20/2021 at Unknown time Yes Yes Sig: Take 40 mg by mouth once daily. clopidogrel (PLAVIX) 75 mg tablet 09/15/2021 Yes No Sig: Take 75 mg by mouth once daily. cyclobenzaprine (FLEXERIL) 5 mg tablet 09/20/2021 at Unknown time Yes Yes Sig: Take 5 mg by mouth three times daily as needed for muscle spasm. isosorbide mononitrate ER (IMDUR) 30 mg 24 hr tablet 09/20/2021 at Unknown time Yes Yes Sig: Take 30 mg by mouth once daily. lamoTRIgine (LAMICTAL) 25 mg tablet 09/20/2021 at Unknown time Yes Yes Sig: Take 50 mg by mouth twice daily. metoprolol succinate ER (TOPROL XL) 25 mg 24 hr tablet Yes Yes Sig: Take 25 mg by mouth once daily. nitroglycerin sublingual (NITROQUICK) 0.4 mg SL tablet No Yes Sig: Dissolve 1 tablet under the tongue every 5 minutes as needed for Chest Pain. May of three doses. primidone (MYSOLINE) 50 mg tablet 09/20/2021 at Unknown time Yes Yes Sig: Take 75 mg by mouth twice daily. Facility-Administered Medications: None Anisha Blanco (Patrol Mother)[id number] 09/22/2021[facility]06-21-2022 NoteHNO ID: [id number] Author: John Reed PA-C Service: Cardiovascular Surgery Author Type: Physician Vegetables Cook Type: Progress Notes Filed: 09/22/2021 10:47 AM Note Text: CARDIOTHORACIC SURGERY POSTOP PROGRESS NOTE SERVICE DATE: 09/22/2021 SERVICE TIME: 10:31 AM Subjective S/P SURGERY: Procedure(s) (LRB): CABG x 3 and subsequent bring back for exploration/bleeding DATE OF SURGERY: 09/21/2021 - 09/22/2021 POSTOP DAY #1 LOS: 1 INTERVAL EVENTS / PERTINENT ROS: Patient underwent CABG x [address] Dominguez on 09/21/2021. He was transferred to the CVICU in stable condition. Patient was on minimal pressor support, however chest tube output was more than expected. Patient was reversed and awoke aggressively when he became hypertensive briefly. At that time, chest tube output continued to increase. Patient was hemodynamically stable at that time. The decision was made to return to the OR to explore for active bleeding. Arterial bleeding was identified in the L chest near the mammary bed. Once bleeding was controlled intra-operatively, patient was brought back to CVICU in stable condition. He remained on the ventilator until around 9:30 AM this morning. He is seen and examined now. Patient will respond but remains somewhat lethargic. He is AANDO x 1-2. Patient is saturating well on 4L NC. Chest tube output remained reasonable through the night. Patient currently complains of L leg pain and states that he does not like the SCDs. He denies any other pain at this time. He denies N/V/D. All labs and imaging were reviewed. Objective Admission Weight: 63.5 kg (139 lb 15.9 oz) BP (!) 115/28 Pulse 79 Temp 37.9 ?C (100.22 ?F) Resp 19 Ht 172.7 cm (5' 8) Wt 64.7 kg (142 lb 10.2 oz) SpO2 100% BMI 21.69 kg/m? Body surface area is 1.76 meters squared. Min/Max/Average Temperature AND Blood Pressure: Temp (24hrs), Av.8 ?C (98.3 ?F), Min:35.4 ?C (95.72 ?F), Max:37.9 ?C (100.22 ?F) Systolic (24hrs), Av , Min:94 , Max:115 Diastolic (24hrs), Av, Min:28, Max:73 Intake/Output Summary (Last 24 hours) at 09/22/2021 1031 Last data filed at 09/22/2021 1008 Gross per 24 hour Intake 9352.1 ml Output 5376 ml Net 3976.1 ml TELEMETRY: normal sinus rhythm PHYSICAL EXAM: General Appearance: This but well appearing and sitting upright in bed; in NAD Skin: Midsternal incision dry AND intact without surrounding erythema, warmth, drainage and SVG covered by RENY wrap without evidence of drainage Neck: no JVD and RIJ intact with clean and dry dressing Lungs: Clear to auscultation throughout without wheezing, crackles, rhonchi; normal respiratory effort Heart: regular rhythm and S1, S2 normal Peripheral Vascular/Arteries: pulses intact, dorsalis pedis 2+ and radial 1+ Abdomen: soft, non-tender and bowel sounds present Neurologic/Psychiatric: oriented to time, place and person, alert and objects conservator strength 5/5 Extremities: normal exam of the extremities and no edema Lines, Drains, and Airways Line Arterial Line/Sheath 09/21/21 0826 Left Radial 1 day Central Line Quadruple Lumen 09/21/21 0810 Non-tunneled Right 1 day Peripheral 09/21/21 0654 Right Arm 18 Gauge 1 day Drain Chest Tube Left Anterior Pleural 28 Fr Tube #3 -- days Chest Tube 09/21/21 Right Anterior Pleural 28 Fr Tube #1 1 day Indwelling Urinary Catheter 09/21/21 0800 16 Fr 1 day Chest Tube 09/21/21 2244 Anterior Mediastinal 32 Fr Tube #3 <1 day DATA: Diagnostic tests reviewed for today's visit: Chest X-RAY: Lungs and pleura: ?Small right apical pneumothorax. Minimal atelectasis at left lung base. Lungs are otherwise fairly clear. Significant gastric dilatation noted. Recent Labs 09/22/21 0517 09/22/21 0505 09/22/21 0025 09/21/21 1925 09/21/21 1401 RBC -- 2.38* 2.44* 2.94* 3.40* WBC -- 16.50* 15.29* 21.66* 28.06* HB -- 7.9* 7.9* 9.7* 11.1* HCT -- 23.4* 23.7* 28.4* 33.0* PLT -- 203 189 213 236 INR -- -- -- -- 1.1 APTT -- -- -- 33.7* 33.3* NA -- 134* 137 -- 137 K -- 4.5 4.9 -- 4.3 CHLOR -- 106* 107* -- 105 CO2 -- 22 23 -- 23 BUN -- 15 15 -- 15 CREAT -- 0.80 0.90 -- 1.04 GLUC -- 92 89 -- 141* ICAL 1.12 -- -- -- 1.25 CA -- 7.5* 7.1* -- 8.1* MG -- 1.9 -- -- 2.4* ANION -- 6* 7* -- 9 Recent Labs 09/22/21 0517 09/21/21 2210 09/21/21 1401 09/21/21 1320 09/21/21 1213 PH 7.36 -- 7.22* -- -- PCO2 44 50.9* 60* 52.6* 47.3* PO2 91 238* 130* 178* 409* BE -- -1 -- -3* 0 HCO3 24 25.1 23 24.1 25.8 CO2CT 23 -- 22 -- -- O2HB 95 -- 95 -- -- COHB 1.0 -- 2.0 -- -- MHGB <1.0 -- 1.1 -- -- PHTC 7.37 -- 7.23* -- -- PCO2T 43 -- 56* -- -- PO2T 88 -- 122* -- -- O2AD 30 -- -- -- -- Assessment/Plan MV CAD - POD # 1 - Previous history of stenting in 2018 (chronically on Plavix to be resumed in the future) - S/p CABG x 3; (RIBEIRO to LAD, SVG to diag, ELIEL to diag) - S/p bring back for continued bleeding; arterial bleeding identified and controlled - Med (more content not included)...[facility]06-21-2022 Note HNO ID: [id number] Author: Thai Peter MD Service: Critical Care Author Type: Physician Type: Progress Notes Filed: 09/22/2021 6:07 PM Note Text: MICU - PROGRESS NOTE SERVICE DATE: September 22, 2021 Admission Date: 09/21/2021 AGE: [age] year old LOS: 1 days Subjective Setting up in chair when seen on rounds. Feeling better. No SOB. Pain controlled. Take back to surgery last night due to bleeding reportedly from one of grafts. Extubated this AM uneventfully. Epinephrine being weaned. Phenylephrine at 20mcg/min. 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 (HCC) - 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 (HCC) - LV dysfunction mild - Mixed hyperlipidemia - Seizure (HCC) - Tobacco use disorder PAST SURGICAL HISTORY Procedure Laterality Date - LUMBAR PUNCTURE - OTHER 2018 ptca ZOLTAN to mid LAF and second diagonal - PAST SURGICAL HISTORY OF lymph node resection Social History Tobacco Use - Smoking status: Current Every Day Smoker Packs/day: 1.00 Years: 61.00 Pack years: 61.00 Types: Cigarettes - Smokeless tobacco: Never Used Vaping Use - Vaping Use: Never used Substance Use Topics - Alcohol use: Yes Comment: 1 drink per month - Drug use: Never VITAL SIGNS (last 24hrs min/max): Temp Av.6 ?C (97.9 ?F) Min: 35.4 ?C (95.72 ?F) Max: 37.6 ?C (99.7 ?F) Pulse Av Min: 0 Max: 196 Arterial BP 1 Min: 6/-18 Max: 252/240 Cuff BP Min: 101/71 Max: 115/83 Pain Level: 7 Vital signs reviewed. BP 114/55 Pulse 68 Temp (Src) 99.14 (Bean Thermistor) Resp 14 Ht 5' 8 (1.73m) Wt 142 lb 10.2 oz (64.7kg) SpO2 99% BMI 21.69 kg/(m2). O2 Therapy: Ventilator, Liters: 4, %FIO2: 30 Temp (24hrs), Av.6 ?C (97.9 ?F), Min:35.4 ?C (95.72 ?F), Max:37.6 ?C (99.7 ?F) NET FLUID BALANCE Intake/Output Summary (Last 24 hours) at 09/22/2021 0738 Last data filed at 09/22/2021 0620 Gross per 24 hour Intake 9057.3 ml Output 5096 ml Net 3961.3 ml MEDICATIONS Current Facility-Administered Medications Medication Dose Route Frequency - vancomycin iv piggyback 1 g in D5W 200 mL (VANCOCIN) 0.015 g/kg/dose INTRAVENOUS ONCE - aztreonam 1 g in D5W 100 mL Vial-Bag (AZACTAM) 1 g INTRAVENOUS ONCE - NaCl 0.9% iv flush bag 20 mL INTRAVENOUS PRN - lamoTRIgine 50 mg tab(s) (LaMICtal) 50 mg ORAL DAILY - primidone 50 mg tab(s) (MYSOLINE) 50 mg ORAL BID - enoxaparin 40 mg injection (LOVENOX) 40 mg SUBCUTANEOUS DAILY - sodium chloride 0.9 % (flush) 10 mL (BD POSIFLUSH) 10 mL INTRAVENOUS q 12 H - sodium chloride 0.9 % (flush) 20 mL (BD POSIFLUSH) 20 mL INTRAVENOUS PRN - NaCl 0.9% iv flush bag 20 mL INTRAVENOUS PRN - lactated ringers iv infusion 50 mL/hr INTRAVENOUS CONTINUOUS - insulin regular 100 units in NaCl 0.9% 100 mL - AK CARD SURG NOMOGRAM 0-12 Units/hr INTRAVENOUS CONTINUOUS - insulin regular human 10 Units bolus from bag 10 Units INTRAVENOUS PRN - dextrose 10% iv bolus 12.5 g INTRAVENOUS PRN - albuterol 2.5 mg /3 mL (0.083 %) 2.5 mg (PROVENTIL) 2.5 mg INHALATION q 2 H PRN - aspirin 162 mg chewable tab(s) 162 mg ORAL DAILY - vancomycin iv piggyback 1 g in D5W 200 mL (VANCOCIN) 0.015 g/kg/dose INTRAVENOUS q 12 HR - pantoprazole 40 mg injection (PROTONIX) 40 mg INTRAVENOUS DAILY (6 AM) - ondansetron (PF) 4 mg injection (ZOFRAN) 4 mg INTRAVENOUS q 6 H PRN - potassium chloride iv piggyback 20 mEq/100 mL 20 mEq INTRAVENOUS PRN - magnesium sulfate 2 g in sterile water 50 ml 2 g INTRAVENOUS PRN(NO DISPENSE) - acetaminophen 1,000 mg tab(s) (TYLENOL) 1,000 mg ORAL QID - gabapentin 200 mg cap(s) (NEURONTIN) 200 mg ORAL BID - lidocaine 4 % 1 Patch (SALONPAS) 1 Patch TRANSDERMAL DAILY And - lidocaine patch - REMOVE OTHER AT BEDTIME And - lidocaine - VERIFY PATCH OTHER q 8 H - magnesium oxide 400 mg tab(s) (MAG-OX) 400 mg ORAL DAILY - lactated ringers 250 mL iv bolus 250 mL INTRAVENOUS PRN - PHENYLephrine iv infusion 10 mg in NaCl 0.9% 250 mL (ZA-SYNEPHRINE) 0-100 mcg/min INTRAVENOUS CONTINUOUS - aztreonam 2 g in D5W 100 mL Vial-Bag (AZACTAM) 2 g INTRAVENOUS q 12 HR - oxyCODONE IR 5-10 mg tab(s) (ROXICODONE) 5-10 mg ORAL q 3 H PRN - fentaNYL 50 mcg/mL 25-50 mcg injection (SUBLIMAZE) 25-50 mcg INTRAVENOUS q 1 H PRN - dexmedeTOMIDine 400 mcg in NaCl 0.9% 100 mL (PRECEDEX) 0.2-1 mcg/kg/hr INTRAVENOUS CONTIN (more content not included)...[facility] 09-21-2021 NoteHNO ID: [id number] Author: Hi Gonzalez APRN.FLOOR CASHIER Service: Anesthesiology Author Type: Nurse Belt Turner Type: Anesthesia Procedure Notes Filed: 09/21/2021 9:56 PM Note Text: ANESTHESIOLOGY PROCEDURE NOTE Airway General Information Procedure Start Time/Medication Administration: 09/21/2021 9:47 PM Procedure End Time: 09/21/2021 9:48 AM Patient location during procedure: OR Timeout Performed Pre-procedure: timeout performed Consent Obtained: Yes Patient identity confirmed: arm band and patient Staffing Anesthesiologist: Prosper Escalante MD FLOOR CASHIER: Hi Gonzalez APRN.FLOOR CASHIER Performed by: FLOOR CASHIER Indications and Patient Condition Preoxygenated: yes Patient position: sniffing Indications for airway management: anesthesia anesthesia circuit Method: asleep Final Airway Details Final airway type: endotracheal airway Final Endotracheal Airway: ETT Cuffed: yes Successful intubation technique: direct laryngoscopy Endotracheal tube insertion site: oral Blade: Edd Blade size: #4 ETT size (mm): 8.0 Measured from: lips Measurement (cm): 22 Placement verified by: chest auscultation and capnometry Cormack-Lehane Classification: grade I - full view of glottis Number of attempts at approach: 1 Failed airway: no Unrecognized esophageal intubation: no Airway not difficult SIGNATURE: Hi Gonzalez APRN.FLOOR CASHIER PATIENT NAME: Radha Brennan DATE: September 21, 2021 TIME: 9:54 PM CSN: [id number] [facility] Miscellaneous Notes* Telephone Encounter - Jess Cifuentes - 09/21/2021 12:11 PM EDT Left detailed message to informRamirez Cifuentes * Telephone Encounter - Jess Cifuentes - 09/21/2021 12:10 PM EDT ----- Message from Matt Villegas PA-C sent at 09/18/2021 9:45 AM EDT ----- No infection in the urine SAM Oropeza MT, PA-C [facility] NoteHNO ID: [id number] Author: REY Atkinson Service: ? Author Type: Student Type: Anesthesia Procedure Notes Filed: 09/21/2021 8:45 AM Note Text: ANESTHESIOLOGY PROCEDURE NOTE CVL General Information Procedure Start Time/Medication Administration: 09/21/2021 8:10 AM Patient location during procedure: OR Patient identity confirmed: patient sedated or unresponsive Indication: central venous access Staffing SRNA: REY Atkinson Preparation Sterility Preparation: hand hygiene performed prior to procedure, sterile gloves, drapes, and procedure tray, gown used during line insertion, surgical cap used, mask used, sterile drape used during line insertion, skin prep agent completely dried prior to procedure Site Prep: Chloraprep Procedure Details Patient Position: Trendelenburg Laterality: Right Site: Internal jugular Catheter Type: MAC Catheter Size: 8.5 Fr Catheter Length (cm): 16 Number of Lumens: Quad lumen Ultrasound Guided: Yes Image in Chart: No Sites: selected vessel patent Vessel: target vessel identified Needle advanced into vein and blood aspirated: Yes Transduced prior to dilation: Yes Number of Attempts: 1 Number of Guidewires Used: 1 Number of Guidewires Removed Intact: 1 Post Insertion Ports and Catheter: all ports aspirate easily, all ports flush easily and ports flushed with saline Catheter Secured: suture(s) Events Events: patient tolerated procedure well with no complications SIGNATURE: REY Atkinson PATIENT NAME: Radha Brennan DATE: September 21, 2021 TIME: 8:42 AM CSN: [id number] Light Inland Hospital06-20-2022 NoteHNO ID: [id number] Author: REY Atkinson Service: ? Author Type: Student Type: Anesthesia Procedure Notes Filed: 09/21/2021 8:37 AM Note Text: ANESTHESIOLOGY PROCEDURE NOTE Airway General Information Procedure Start Time/Medication Administration: 09/21/2021 8:00 AM Patient location during procedure: OR Timeout Performed Pre-procedure: timeout performed Consent Obtained: Yes Patient identity confirmed: arm band and patient sedated or unresponsive Staffing Anesthesiologist: Lukas Marie MD Performed by: anesthesiologist Indications and Patient Condition Preoxygenated: yes Manual In-Line Stabilization: No Difficult Mask: Yes Indications for airway management: anesthesia anesthesia circuit Method: asleep Cricoid Pressure: No Airway Accessory: oral airway Final Airway Details Final airway type: endotracheal airway Final Endotracheal Airway: ETT Successful intubation technique: direct laryngoscopy Blade: Edd Blade size: #4 ETT size (mm): 8.0 Measured from: lips Measurement (cm): 22 Placement verified by: capnometry Cormack-Lehane Classification: grade I - full view of glottis Number of attempts at approach: 1 Failed airway: no Unrecognized esophageal intubation: no Airway not difficult SIGNATURE: REY Atkinson PATIENT NAME: Radha Brennan DATE: September 21, 2021 TIME: 8:35 AM CSN: [id number] Light Inland Hospital06-20-2022 NoteHNO ID: [id number] Author: REY Atkinson Service: ? Author Type: Student Type: Anesthesia Procedure Notes Filed: 09/21/2021 8:26 AM Note Text: ANESTHESIOLOGY PROCEDURE NOTE A-Line General Information Patient location during procedure: OR Timeout Performed Pre-procedure: timeout performed Indication: continuous blood pressure monitoring and blood sampling needed Staffing Anesthesiologist: Lukas Marie MD FLOOR CASHIER: Aubrey Cook APRN.FLOOR CASHIER Performed by: LUIS Preparation Sterility Preparation: hand hygiene performed prior to procedure, sterile gloves, drapes, and procedure tray, surgical cap used, mask used, skin prep agent completely dried prior to procedure Site Prep: Chloraprep Procedure Details Catheter Size: 20 G Catheter Length: 1.75 in Micropuncture Kit Used: Yes Guidewire Used: YesLaterality: left Site: radial artery Ultrasound Guided: NoLine Secured: Tegaderm Events Events: patient tolerated procedure well with no complications SIGNATURE: REY Atkinson PATIENT NAME: Radha Brennan DATE: September 21, 2021 TIME: 8:25 AM CSN: [id number] Light Inland Hospital06-17-2022 NoteHNO ID: [id number] Author: Linda Winkler APRN.CNP Service: Cardiovascular Medicine Author Type: Nurse Practitioner Type: Plan of Care Filed: 09/18/2021 5:47 PM Note Text: CTVS Surgery Pre-Op Open Heart Check List Patient Info: Radha Brennan 1955 66 year old STS RISK SCORE: Procedure: Isolated CAB Risk of Mortality: 1.130% Renal Failure: 0.623% Permanent Stroke: 1.195% Prolonged Ventilation: 6.860% DSW Infection: 0.146% Reoperation: 3.841% Morbidity or Mortality: 10.974% Short Length of Stay: 50.020% Long Length of Stay: 4.336% Pre-Op Testing: LABS: CHEMISTRY Sodium (mmol/L) Date Value 09/11/2021 139 07/21/2021 138 Chloride (mmol/L) Date Value 09/11/2021 99 07/21/2021 99 CO2 (mmol/L) Date Value 09/11/2021 31 07/21/2021 30 BUN (mg/dL) Date Value 09/11/2021 8 07/21/2021 18 Creatinine (mg/dL) Date Value 09/11/2021 0.94 07/21/2021 0.90 Glucose (mg/dL) Date Value 09/11/2021 88 07/21/2021 98 Magnesium (mg/dL) Date Value 09/11/2021 2.0 07/21/2021 2.0 Protein, Total (g/dL) Date Value 09/11/2021 6.8 07/21/2021 6.7 Calcium, Total (mg/dL) Date Value 09/11/2021 9.4 07/21/2021 8.8 Bilirubin, Total (mg/dL) Date Value 09/11/2021 0.5 07/21/2021 <0.2 Alkaline Phosphatase (U/L) Date Value 09/11/2021 96 07/21/2021 105 ALT (U/L) Date Value 09/11/2021 14 07/21/2021 14 AST (U/L) Date Value 09/11/2021 18 07/21/2021 17 Anion Gap (mmol/L) Date Value 09/11/2021 9 07/21/2021 9 { Lipid Panel No results found for: CHOL, HDL, LDL, TG NT Pro BNP No results found for: PBNP ENDOCRINE Hemoglobin A1C (%) Date Value 07/21/2021 6.0 Lab Results Component Value Date TSH 3.680 07/21/2021 HEMATOLOGY RBC (m/uL) Date Value 09/11/2021 4.64 07/21/2021 4.48 Hemoglobin (g/dL) Date Value 09/11/2021 14.9 07/21/2021 14.7 Hematocrit (%) Date Value 09/11/2021 45.7 07/21/2021 43.5 WBC (k/uL) Date Value 09/11/2021 9.76 07/21/2021 12.48 Platelet Count (k/uL) Date Value 09/11/2021 341 07/21/2021 316 COAGULATION PT Sec Date Value Ref Range Status 09/11/2021 10.9 9.7 - 13.0 sec Final INR Date Value Ref Range Status 09/11/2021 1.0 0.9 - 1.3 Final Comment: Vitamin K Antagonist (VKA) Therapeutic Range: INR 2 to 3 (Target INR of 2.5) Note: For patients treated with VKA drugs, such as warfarin, the [employer] 2012 Guideline recommends a therapeutic INR range of 2 to 3 (target INR of 2.5). This recommendation includes high-risk patients with antiphospholipid syndrome with previous arterial or venous thromboembolism, current-generation mechanical or bioprosthetic aortic heart valve replacement. Note: Patients with mechanical aortic valve replacement and additional risk factors for thromboembolic events (atrial fibrillation, previous thromboembolism, LV dysfunction, hypercoagulable conditions) or an older generation mechanical AVR (i.e., ball in-Cage) or any mechanical MVR should have a INR therapeutic range of 2.5 to 3.5 (target INR of 3). Shiloh AGUILERA, et al. Chest 2012, 141:[id number] Jose Angel RA, et al. [facility] 2017, 70: 252-289 Anemia Evaluation: Anemic: No Accept Blood: Yes Blood Conservation Committee: NA IF anemia, IRON/ANEMIA studies done: NA Studies included: Ferritin, FE+TIBC, Fe Sat, FOBT Anemia Treatment: NA UA pH, Urine Date Value Ref Range Status 09/11/2021 6.0 5.0 - 8.0 Final Specific Plato, Ur Date Value Ref Range Status 09/11/2021 1.008 1.005 - 1.030 Final Glucose, Urine Date Value Ref Range Status 09/11/2021 Negative Negative Final Bilirubin, Urine Date Value Ref Range Status 09/11/2021 Negative Negative Final Ketones, Urine Date Value Ref Range Status 09/11/2021 Negative Negative Final Hemoglobin/Blood,Ur Date Value Ref Range Status 09/11/2021 1+ (A) Negative Final Protein, Urine Date Value Ref Range Status 09/11/2021 Final Comment: Visible blood causes falsely elevated results for analyte Protein. Due to this limitation, Protein will not be reported for patients whose urine contains visible blood. Urobilinogen Date Value Ref Range Status 09/11/2021 Normal Negative Final Nitrites Date Value Ref Range Status 09/11/2021 Negative Negative Final Leuk Esterase Date Value Ref Range Status 09/11/2021 Negative Negative Final WBC, Urine Date Value Ref Range Status 09/11/2021 0-5 /HPF 0-5 /HPF Final MRSA Screen: Yes Mupirocin RX started: Yes COVID TEST: done 09/18/21, results pending Chronic Lung Disease: Yes FEVI: 113. DLCO: 79 ABG: BRITTNEY: No IMAGING/PROCEDURES: CXR: No CT Chest without contrast : Yes Cardiac Catheterization: Yes 2D Echo: Yes 5 Meter Walk Test: Yes OPTIONAL TESTINGS: Carotid U/S: Yes Lower EXT ROSE: No Palmar Arch: No Vein Mapping: No Dental Clearance: na Medications: Stop blood thinner: OAC/PLAVIX: Yes, stop pl (more content not included)...[facility]06-14-2022 NoteHNO ID: [id number] Author: Matt Villegas PA-C Service: ? Author Type: Physician Vegetables Cook Type: Progress Notes Filed: 09/15/2021 2:15 PM Note Text: PATIENT INFO: Radha Brennan 66 year old ( ) REFERRING PROVIDER: PCP: Clement Swanson MD, MD September 15, 2021 HPI: Radha Brennan 66 year old male is here today for discussion and evaluation of blood in urine, he did have Blood on dipstick, and 6-10 RBC's today there is still Blood on dip however, when I looked at micro there were no RBC's at all in urine I suspect he may be getting over a UTI or prostate is bleeding scant amounts that are not visible but that will turn dipstick positive. I mentioned to him that after his surgery, if he does have a enlarged prostate, he may need to be see again if he has post-op urine retention. At this time I see no reason from a urological point of view that he should postpone his cardiac surgery. LUTS: Denies any LUTS at all Other symptoms: LABS: No results found for: TESTOST No results found for: TESTFREE No results found for: PSA Hematocrit (%) Date Value 09/11/2021 45.7 07/21/2021 43.5 MEDICATIONS: cyclobenzaprine (FLEXERIL) 5 mg tablet Take 5 mg by mouth once daily. metoprolol tartrate, short acting, (LOPRESSOR) 25 mg tablet Take 0.5 tablets by mouth one time only for 1 dose. Take am of surgery with your morning meds. DO NOT take Toprol XL ( metoprolol succinate) as well at this time. clopidogrel (PLAVIX) 75 mg tablet Take 75 mg by mouth once daily. isosorbide mononitrate ER (IMDUR) 30 mg 24 hr tablet Take 30 mg by mouth once daily. lamoTRIgine (LAMICTAL) 25 mg tablet Take 50 mg by mouth once daily. aspirin, enteric coated (ASPIRIN, ENTERIC COATED) 81 mg EC tablet Take 81 mg by mouth once daily. primidone (MYSOLINE) 50 mg tablet Take 50 mg by mouth twice daily. atorvastatin (LIPITOR) 40 mg tablet Take 40 mg by mouth once daily. metoprolol succinate ER (TOPROL XL) 25 mg 24 hr tablet Take 25 mg by mouth once daily. nitroglycerin sublingual (NITROQUICK) 0.4 mg SL tablet Dissolve 1 tablet under the tongue every 5 minutes as needed for Chest Pain. May of three doses. mupirocin (BACTROBAN) 2 % ointment Apply to affected area twice daily for 5 days. Chlorhexidine Gluconate (PERIDEX) 0.12 % solution Use 15 mL as instructed twice daily for 5 days. Rinse around mouth for 30 seconds then expectorate PAST MEDICAL HISTORY: 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 (HCC) - 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 (HCC) - LV dysfunction mild - Mixed hyperlipidemia - Seizure (HCC) - Tobacco use disorder PAST SURGICAL HISTORY: PAST SURGICAL HISTORY Procedure Laterality Date - LUMBAR PUNCTURE - OTHER 2018 ptca ZOLTAN to mid LAF and second diagonal - PAST SURGICAL HISTORY OF lymph node resection FAMILY HISTORY: FAMILY HISTORY Problem Relation Age of Onset - Heart Attack Mother - Heart Attack Brother SOCIAL HISTORY: Social Connections: Not on file REVIEW OF SYSTEMS: GENERAL: No fever, chills, weight loss, or fatigue. ENMT: Negative CARDIOVASCULAR:NO CHEST PAIN, PALPITATIONS, ANKLE EDEMA RESPIRATORY: No chronic cough, wheezing, dyspnea, hemoptysis. GENITOURINARY: SEE HPI MUSCULOSKELETAL:NO CHRONIC BACK PAIN, ARTHRITIS, CHRONIC NECK PAIN SKIN: NO VARICOSE VEINS, RASH, ABNORMAL ITCHING HEME/LYMPH/IMMUNE:Negative for prolonged bleeding, bruising easily or swollen nodes NEUROLOGICAL: NO HEADACHES, NUMBNESS, SEIZURES, STROKE DIABETES: No All other systems reviewed and are negative PHYSICAL EXAMINATION: There were no vitals taken for this visit. GENERAL: WNL nutrition, no deformities, healthy appearing NEURO: Awake, alert and oriented x 3 and Normal gait PSYCH: No signs of depression, anxiety, or agitation ENMT (Ear, Nose, Mouth, Throat): No masses, adenopathy, icterus. Thyroid nonpalpable RESP: NL effort, no retractions or purse-lip breathing. CV: No extremity swelling, varices, edema, pallor, erythema GASTROINTESTINAL: Soft, nontender, nondistended, no masses. HERNIAS: None SKIN: No rash, lesions No palpable lymphadenopathy MUSCULOSKELETAL: Extremities normal. No deformities, edema, clubbing or skin discoloration. PROBLEM LIST REVIEW: Yes LABS: Results for orders placed or performed in visit on 09/15/21 UA DIP, URINE (POC) Result Value Ref Range GLUCOSE UA (POCT) Negative Negative mg/dL BILIRUBIN UA (POCT) Negative Negative KETONE UA (POCT) Negative Negative mg/dL SPECIFIC GRAVITY UA (POCT) 1.010 1.005 - 1.030 HEMOGLOBIN/BLOOD UA (POCT) Small (A) Negative PH UA (POCT) 6.0 4.5 - 8.0 PROTEIN UA (POCT) Negative Negative mg/dL UROBILINOGEN UA (POCT) 0.2 Normal E.U./dL NITRITE (more content not included)...[facility]06-14-2022 Note HNO ID: [id number] Author: Krunal Reynolds LPN Service: ? Author Type: ? Type: Progress Notes Filed: 09/15/2021 2:15 PM Note Text: CC Post Void Residual HPI: Radha Brennan is a 66 year old male. The patient is here now for an appointment with SAM Oropeza, PETE, DESMOND. Procedure: Explained procedure to patient and verbalizes understanding. Performed a PVR. Patient urinated and instructed to empty bladder as much as possible just prior to having PVR done using bladder ultrasound scanner. Results of scan: 5 mL The patient tolerated the procedure well. Plan: Appointment with Matt.[facility]06-14-2022 History of Present illness Narrative* Matt Villegas PA-C - 09/15/2021 1:33 PM EDT Images from the original note were not included. PATIENT INFO: Radha Brennan 66 year old ( ) REFERRING PROVIDER: PCP: Clement Swanson MD, MD September 15, 2021 HPI: Radha Brennan 66 year old male is here today for discussion and evaluation of blood in urine, he didhave Blood on dipstick, and 6-10 RBC's today there is still Blood on dip however, when I looked at microthere were no RBC's at all in urine I suspect he may be getting over a UTI or prostate is bleeding scant amounts that are not visible but that will turn dipstick positive. I mentioned to him that after his surgery, if he does have a enlarged prostate, he may need to be see again if he has post-op urine retention. At this time I see no reason from a urological point of view that he should postpone his cardiac surgery. LUTS: Denies any LUTS at all Other symptoms: LABS: No results found for: TESTOST No results found for: TESTFREE No results found for: PSA Hematocrit (%) Date Value 09/11/2021 45.7 07/21/2021 43.5 MEDICATIONS: cyclobenzaprine (FLEXERIL) 5 mg tablet Take 5 mg by mouth once daily. metoprolol tartrate, short acting, (LOPRESSOR) 25 mg tablet Take 0.5 tablets by mouth one time onlyfor 1 dose. Take am of surgery with your morning meds. DO NOT take Toprol XL ( metoprolol succinate) as well at this time. clopidogrel (PLAVIX) 75 mg tablet Take 75 mg by mouth once daily. isosorbide mononitrate ER (IMDUR) 30 mg 24 hr tablet Take 30 mg by mouth once daily. lamoTRIgine (LAMICTAL) 25 mg tablet Take 50 mg by mouth once daily. aspirin, enteric coated (ASPIRIN, ENTERIC COATED) 81 mg EC tablet Take 81 mg by mouth once daily. primidone (MYSOLINE) 50 mg tablet Take 50 mg by mouth twice daily. atorvastatin (LIPITOR) 40 mg tablet Take 40 mg by mouth once daily. metoprolol succinate ER (TOPROL XL) 25 mg 24 hr tablet Take 25 mg by mouth once daily. nitroglycerin sublingual (NITROQUICK) 0.4 mg SL tablet Dissolve 1 tablet under the tongue every 5 minutes as needed for Chest Pain. August of three doses. mupirocin (BACTROBAN) 2 % ointment Apply to affected area twice daily for 5 days. Chlorhexidine Gluconate (PERIDEX) 0.12 % solution Use 15 mL as instructed twice daily for 5 days. Rinse around mouth for 30 seconds then expectorate PAST MEDICAL HISTORY: PAST MEDICAL HISTORY Diagnosis Date Atherosclerosis of [place] coronary artery of c[place] heart with angina pectoris (HCC) Atrial septal aneurysm Cerebrovascular accident (CVA) due to embolism of cerebral artery (HCC) 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 (HCC) LV dysfunction mild Mixed hyperlipidemia Seizure (HCC) Tobacco use disorder PAST SURGICAL HISTORY: PAST SURGICAL HISTORY Procedure Laterality Date LUMBAR PUNCTURE OTHER 2018 ptca ZOLTAN to mid LAF and second diagonal PAST SURGICAL HISTORY OF lymph node resection FAMILY HISTORY: FAMILY HISTORY Problem Relation Age of Onset Heart Attack Mother Heart Attack Brother SOCIAL HISTORY: Social Connections: Not on file REVIEW OF SYSTEMS: GENERAL: No fever, chills, weight loss, or fatigue. ENMT: Negative CARDIOVASCULAR:NO CHEST PAIN, PALPITATIONS, ANKLE EDEMA RESPIRATORY: No chronic cough, wheezing, dyspnea, hemoptysis. GENITOURINARY: SEE HPI MUSCULOSKELETAL:NO CHRONIC BACK PAIN, ARTHRITIS, CHRONIC NECK PAIN SKIN: NO VARICOSE VEINS, RASH, ABNORMAL ITCHING HEME/LYMPH/IMMUNE:Negative for prolonged bleeding, bruising easily or swollen nodes NEUROLOGICAL: NO HEADACHES, NUMBNESS, SEIZURES, STROKE DIABETES: No All other systems reviewed and are negative PHYSICAL EXAMINATION: There were no vitals taken for this visit. GENERAL: WNL nutrition, no deformities, healthy appearing NEURO: Awake, alert and oriented x 3 and Normal gait PSYCH: No signs of depression, anxiety, or agitation ENMT (Ear, Nose, Mouth, Throat): No masses, adenopathy, icterus. Thyroid nonpalpable RESP: NL effort, no retractions or purse-lip breathing. CV: No extremity swelling, varices, edema, pallor, erythema GASTROINTESTINAL: Soft, nontender, nondistended, no masses. HERNIAS: None SKIN: No rash, lesions No palpable lymphadenopathy MUSCULOSKELETAL: Extremities normal. No deformities, edema, clubbing or skin discoloration. PROBLEM LIST REVIEW: Yes LABS: Results for orders placed or performed in visit on 09/15/21 UA DIP, URINE (POC) Result Value Ref Range GLUCOSE UA (POCT) Negative Negative mg/dL BILIRUBIN UA (POCT) Negative Negative KETONE UA (POCT) Negative Negative mg/dL SPECIFIC GRAVITY UA (POCT) 1.010 1.005 - 1.030 HEMOGLOBIN/BLOOD UA (POCT) Small (A) Negative PH UA (POCT) 6.0 4.5 - 8.0 PROTEIN UA (POCT) Negative Negative mg/dL UROBILINOGEN UA (POCT) 0.2 Normal E.U./dL NITRITE UA (POCT) Negative Negative LEUKOCYTES UA (POCT) Trace (A) Negative COLOR UA (POCT) Light yellow CLARITY UA (POCT) Clear Urine Microscopy Findings 0 RBC's on microscopic evaluation of urine in office Urine Culture: Pending PROCEDURES: PVR:5 ml IMAGING: IMPRESSION/PLAN: 1. Hematuria, unspecified type `> Dipstick only > Check urine culture - UA DIP, URINE (POC) > Cleared for planned cardiac surgery at this time, urine culture to be final by Tuesday, if any antibiotic is needed he will have the weekend to be on before surgery Tuesday I spent a total of 30 minutes on the date of the service which included preparing to see the patient, face to face patient care, completing clinical documentation, obtaining and/or reviewing separately obtained history, performing a medically appropriate examination, counseling and educating the pat ient/family/caregiver, ordering medications, tests, or procedures, and care coordination. SAM Oropeza MT, PA-C * Krunal Reynolds LPN - 09/15/2021 1:30 PM EDT CC Post Void Residual HPI: Radha Brennan is a 66 year old male. The patient is here now for an appointment with SAM Oropeza MT, PA-COV. Procedure: Explained procedure to patient and verbalizes understanding. Performed a PVR. Patient urinated and instructed to empty bladder as much as possible just prior to having PVR done using bladder ultrasound scanner. Results of scan: 5 mL The patient tolerated the procedure well. Plan: Appointment with Matt. [facility] Miscellaneous Notes* Telephone Encounter - Linda Winkler APRN.CNP - 09/14/2021 3:38 PM EDT Spoke with Mr. Brennan and relayed results of UA. He denies any prior urinary or prostate history. Denies any urinary complaints. I explained that he will need to see urology pre op for work up/clearance. This may possibly delay elective CABG date. He verbalized understanding. Urology consult placed. Linda Winkler APRN.CNP documented in this [facility]22 NoteHNO ID: [id number] Author: Linda Winkler APRN.CNP Service: ? Author Type: Nurse Practitioner Type: Progress Notes Filed: 09/18/2021 5:48 PM Note Text: HISTORY and PHYSICAL CARDIOTHORACIC SURGERY Cardiothoracic Physician: Dr. Dominguez NAME: Radha Brennan HEIGHT: 175 cm WEIGHT: 61.7 kg Intended Procedure: Isolated CABG REDO: No STS SCORE: STS Adult Cardiac Surgery Database Version 4.20 RISK SCORES Procedure: Isolated CAB Risk of Mortality: 1.130% Renal Failure: 0.623% Permanent Stroke: 1.195% Prolonged Ventilation: 6.860% DSW Infection: 0.146% Reoperation: 3.841% Morbidity or Mortality: 10.974% Short Length of Stay: 50.020% Long Length of Stay: 4.336% ? HPI: This is a 66 year old man with past medical history of coronary artery disease, hyperlipidemia, ongoing and prolonged tobacco use (1.5 packs of series per day, started age 5), and prior CVA. In 2018, he underwent stenting with drug-eluting stents to the left anterior descending artery and second diagonal branch 2018 after presenting with anginal symptoms. He had a good result with this. Now experiencing exertional and nonexertional episodes of chest discomfort, and ocassional dizziness. He continues to work and is physically active. He reports some shortness of breath with exertional activities, which appears be chronic in nature. Repeat left heart catheterization 06/15/21 shows the following: Ejection fraction 65% by left ventriculography EDP 18 mmHg Left main normal LAD proximal 75% lesion before origin of stent Mid LAD stent intact Diagonal 1 ostial subtotal occlusion Diagonal 2 patent stent Circumflex artery normal Right coronary mild luminal irregularities MRI in 2019 showed mild cerebral atrophy; events of chronic white matter ischemic changes; previous watershed infarct in the right posterior parietal lobe. CT scan demonstrated stable posterior MCA territory infarction in 2018. CT also demonstrated normal right common carotid artery; normal right internal carotid artery; normal left common carotid artery; normal left internal carotid artery; suspicious for 50% lesions of the origin of bilateral subclavian arteries. Carotid Dublex 07/2021 revealed ? RIGHT SIDE Common carotid artery: Plaque visualized without evidence of hemodynamically significant stenosis. Internal carotid artery: 20-39% stenosis. Vertebral artery: Patent and antegrade flow noted. LEFT SIDE Common carotid artery: Plaque visualized without evidence of hemodynamically significant stenosis. Internal carotid artery: 20-39% stenosis. Vertebral artery: Patent and antegrade flow noted. Echo 07/2021 Technically difficult exam due to body habitus. - Exam indication: Chest Pain - The left ventricle is normal in size. Left ventricular systolic function is normal. EF = 52 ? 5% (2D biplane) Grade I left ventricular diastolic dysfunction. - The right ventricle is normal in size. Right ventricular systolic function is normal. CTA Chest (gated) 07/2021 IMPRESSION: 1. ?Normal thoracic aorta. ?No acute aortic pathology identified. 2. ?Severe coronary artery calcifications. 3. ?Old granulomatous disease. ? Lung function test from 2018 demonstrated mild large airways obstructive ventilatory defect. Spirometry 07/2021 revealed mild obstruction. He reports today that his symptoms are largely unchanged. Denies any recent hospitalizations or illnesses. No fevers or chills. Denies any prior issues with anesthesia. He continues to smoke and has cut down to 1PPD Comorbidities include COPD and Hyperlipidemia PAST MEDICAL HISTORY: 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 (HCC) - 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 (HCC) - LV dysfunction mild - Mixed hyperlipidemia - Seizure ([facility]) - Tobacco use disorder PAST SURGICAL HISTORY: PAST SURGICAL HISTORY Procedure Laterality Date - LUMBAR PUNCTURE - OTHER 2018 ptca ZOLTAN to mid LAF and second diagonal - PAST SURGICAL HISTORY OF lymph node resection FAMILY HISTORY: FAMILY HISTORY Problem Relation Age of Onset - Heart Attack Mother - Heart Attack Brother FAMILY HISTORY OF CAD: Yes SOCIAL HISTORY: Social History Tobacco Use - Smoking status: Current Every Day Smoker Packs/day: 1.00 Years: 61.00 Pack years: 61.00 Types: Cigarettes - Smokeless tobacco: Never Used Substance Use Topics - Alcohol use: Yes Comment: 1 drink per month - Drug use: Never SOCIAL HISTORY OF IVDU: No SOCIAL HISTORY OF Smoking: Yes SOCIAL HISTORY OF Alcohol Dependency: No MEDICATIONS: Prior to Admission Medications: clopidogrel (PLAVIX) 75 mg tablet Take 75 mg by mouth on (more content not included)...[facility]06-10-2022 Instructions* Patient Instructions* Linda Winkler APRN.BULL BUCKER - 09/11/2021 2:24 PM EDT You are scheduled for surgery (inpatient) located on the 2nd Floor on: September 21 (your surgery dateis subject to change should there be emergencies). Come in the Front Doors / Main Entrance of the hospital. No need to stop at front entrance registration. Please check in to the [facility] (2nd Floor) at: 6 AM 1. Nothing by mouth after midnight: Do not eat or drink anything, including water and coffee, after12 AM on the morning of your surgery. This is important because if you do, your surgery may have bijan cancelled. Eat a light supper the evening before surgery or follow specific doctor's instructions. 2. Oral hygiene and a shower or bath is required the evening before or the morning of surgery. Use the prescribed mouth water and Hibiclens body wash supplied to you along with the instruction. 3. Do not chew gum/mints, or use oral spray the morning of surgery. 4. Notify your doctor if you develop a cold, sore throat, fever or other changes in your physical condition. 5. No alcohol 24 hours before or after surgery and refrain from smoking the morning of surgery and immediately following surgery. 6. Leave valuables such as rings, watches and money at home. Remove all make-up and nail [place] before admission. We need to check your circulation. Remove jewelry from all piercings, tongue included, as no metal can go into surgery. 7. Wear loose, comfortable clothing that will accommodate bandages. 8. You will be asked to remove glasses and contacts prior to surgery. Please bring a case. Your belongings will be kept in an assigned locker until we know your new room. 9. Please bring your CPAP or BIPAP or any necessary medical equipments, we will keep them in an assigned locker until you are assigned a post-op room. 10. Your length of stay will be determined by your surgeon, the anesthesiologist as well as your post of progress. 11. Given COVID-19 pandemic, 2 designated visitor are allowed on the day of surgery and have the same visitors everyday after the surgery on rotating basis. On the morning of surgery, your point of contact will be instructed on communication regarding surgery updates. 12. Please bring a list of any medication you are taking including dose and the condition for whichyou are being treated. Medications to stop in preparing surgery: Stop Anticoagulant: , last dose of PLAVIX should have been on 09/15/21 Infection control and prevention: For nose- Mupirocin ointment: Please use a pea sized amount on a q-tip to apply inside your nose twice daily for five days prior to surgery. 5-7 days total if you are tested positive for MRSA. For mouth- Peridex therapy should be initiated for surgery prophylaxis 3-5 days prior surgery. Recommended use is twice daily oral rinsing for 30 seconds, morning and evening after toothbrushing. Usual dosage is 15ml (marked in cap) of undiluted Peridex. Please do not rinse with water or other mouthwashes, brush teeth or eat immediately after using Peridex. Peridex is not intended for ingestion and should be expectorated after rinsing. For body- Hibiclens body wash the night before and morning of surgery. If you are positive of MRSA,you would need shower daily with the Hibiclens body solution for 5 days total (you can get additional amount from any drug store). Pre-Op COVID TEST: it is ordered. You will be instructed to have this test completed 2-3 days priorto your surgery date. PLEASE make sure you complete this test to prevent any surgery delay or possible cancellation. If you have not receive call regarding the test, please call [phone]. Nutritional support/Ensure Drinks Instruction (Please continue eating your usual heart healthy diet): 2 protein shakes daily for 5 days before surgery Medications to take with small amount of fluid in the morning of surgery: Aspirin 81 mg Beta Millie (Metoprolol)- DO NOT TAKE THE TOPROL XL that morning Tylenol 1000 mg Lamictal 25 mg Primidone 50 mg PLEASE COMPLETE THE SHOWER, MOUTH WASH, AND MEDICATIONS NO LATER THAN 5:30 AM, THANKS. Please call office: [phone] if you have additional questions, Thanks. Linda Winkler APRN.CNP 07/24/21 documented in this encounter[facility]06[facility] History of Present illness Narrative* Linda Winkler APRN.CNP - 09/11/2021 2:15 PM EDT Images from the original note were not included. HISTORY and PHYSICAL CARDIOTHORACIC SURGERY Cardiothoracic Physician: Dr. Dominguez NAME: Radha Brennan HEIGHT: 175 cm WEIGHT: 61.7 kg Intended Procedure: Isolated CABG REDO: No STS SCORE: STS Adult Cardiac Surgery Database Version 4.20 RISK SCORES Procedure: Isolated CAB Risk of Mortality: 1.130% Renal Failure: 0.623% Permanent Stroke: 1.195% Prolonged Ventilation: 6.860% DSW Infection: 0.146% Reoperation: 3.841% Morbidity or Mortality: 10.974% Short Length of Stay: 50.020% Long Length of Stay: 4.336% HPI: This is a 66 year old man with past medical history of coronary artery disease, hyperlipidemia, ongoing and prolonged tobacco use (1.5 packs of series per day, started age 5), and prior CVA. In 2018,he underwent stenting with drug-eluting stents to the left anterior descending artery and second diagonal branch 2018 after presenting with anginal symptoms. He had a good result with this. Now experiencing exertional and nonexertional episodes of chest discomfort, and ocassional dizziness. He continues to work and is physically active. He reports some shortness of breath with exertional activities, which appears be chronic in nature. Repeat left heart catheterization 06/15/21 shows the following: Ejection fraction 65% by left ventriculography EDP 18 mmHg Left main normal LAD proximal 75% lesion before origin of stent Mid LAD stent intact Diagonal 1 ostial subtotal occlusion Diagonal 2 patent stent Circumflex artery normal Right coronary mild luminal irregularities MRI in 2019 showed mild cerebral atrophy; events of chronic white matter ischemic changes; previouswatershed infarct in the right posterior parietal lobe. CT scan demonstrated stable posterior MCA territory infarction in 2018. CT also demonstrated normal right common carotid artery; normal right internal carotid artery; normal left common carotid artery; normal left internal carotid artery; suspicious for 50% lesions of the origin of bilateral subclavian arteries. Carotid Dublex 07/2021 revealed RIGHT SIDE Common carotid artery: Plaque visualized without evidence of hemodynamically significant stenosis. Internal carotid artery: 20-39% stenosis. Vertebral artery: Patent and antegrade flow noted. LEFT SIDE Common carotid artery: Plaque visualized without evidence of hemodynamically significant stenosis. Internal carotid artery: 20-39% stenosis. Vertebral artery: Patent and antegrade flow noted. Echo 07/2021 Technically difficult exam due to body habitus. - Exam indication: Chest Pain - The left ventricle is normal in size. Left ventricular systolic function is normal. EF = 52 5% (2D biplane) Grade I left ventricular diastolic dysfunction. - The right ventricle is normal in size. Right ventricular systolic function is normal. CTA Chest (gated) 07/2021 IMPRESSION: 1. Normal thoracic aorta. No acute aortic pathology identified. 2. Severe coronary artery calcifications. 3. Old granulomatous disease. Lung function test from 2018 demonstrated mild large airways obstructive ventilatory defect. Spirometry 07/2021 revealed mild obstruction. He reports today that his symptoms are largely unchanged. Denies any recent hospitalizations or illnesses. No fevers or chills. Denies any prior issues with anesthesia. He continues to smoke and has cut down to 1PPD Comorbidities include COPD and Hyperlipidemia PAST MEDICAL HISTORY: PAST MEDICAL HISTORY Diagnosis Date Atherosclerosis of c[place] coronary artery of [place] heart with angina pectoris (HCC) Atrial septal aneurysm Cerebrovascular accident (CVA) due to embolism of cerebral artery (HCC) 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 (HCC) LV dysfunction mild Mixed hyperlipidemia Seizure (HCC) Tobacco use disorder PAST SURGICAL HISTORY: PAST SURGICAL HISTORY Procedure Laterality Date LUMBAR PUNCTURE OTHER 2018 ptca ZOLTAN to mid LAF and second diagonal PAST SURGICAL HISTORY OF lymph node resection FAMILY HISTORY: FAMILY HISTORY Problem Relation Age of Onset Heart Attack Mother Heart Attack Brother FAMILY HISTORY OF CAD: Yes SOCIAL HISTORY: Social History Tobacco Use Smoking status: Current Every Day Smoker Packs/day: 1.00 Years: 61.00 Pack years: 61.00 Types: Cigarettes Smokeless tobacco: Never Used Substance Use Topics Alcohol use: Yes Comment: 1 drink per month Drug use: Never SOCIAL HISTORY OF IVDU: No SOCIAL HISTORY OF Smoking: Yes SOCIAL HISTORY OF Alcohol Dependency: No MEDICATIONS: Prior to Admission Medications: clopidogrel (PLAVIX) 75 mg tablet Take 75 mg by mouth once daily. isosorbide mononitrate ER (IMDUR) 30 mg 24 hr tablet Take 30 mg by mouth once daily. lamoTRIgine (LAMICTAL) 25 mg tablet Take 50 mg by mouth once daily. aspirin, enteric coated (ASPIRIN, ENTERIC COATED) 81 mg EC tablet Take 81 mg by mouth once daily. primidone (MYSOLINE) 50 mg tablet Take 50 mg by mouth twice daily. atorvastatin (LIPITOR) 40 mg tablet Take 40 mg by mouth once daily. metoprolol succinate ER (TOPROL XL) 25 mg 24 hr tablet Take 25 mg by mouth once daily. nitroglycerin sublingual (NITROQUICK) 0.4 mg SL tablet Dissolve 1 tablet under the tongue every 5 minutes as needed for Chest Pain. May of three doses. metoprolol tartrate, short acting, (LOPRESSOR) 25 mg tablet Take 0.5 tablets by mouth one time onlyfor 1 dose. Take am of surgery with your morning meds. DO NOT take Toprol XL ( metoprolol succinate) as well at this time. Current Facility-Administered Medications Medication Dose Route Frequency perflutren lipid microspheres 1.3 mL in NaCl (PF) 0.9% 10 mL injection (DEFINITY) INTRAVENOUS DIRECTED PRN sodium chloride 0.9 % (flush) 10 mL (BD POSIFLUSH) 10 mL INTRAVENOUS DIRECTED PRN ALLERGIES: ALLERGIES Allergen Reactions Tuberculin, Purifie* Swelling Venom-Honey Bee Swelling COMPLETE REVIEW OF SYSTEMS: (10) Constitutional: No weight loss, malaise or fevers HEENT: Negative for frequent or significant headaches, No changes in hearing or vision, no nose bleeds or other nasal problems, Neck - Negative for lumps, goiter, pain and significant neck swelling Resp: Negative for wheezing and chest pain and Positive for chronic cough, productive cough and shortness of breath after 2 flights of stairs Cardiovascular: Negative for chest pain, leg swelling or palpitations and Vascular: foot ulcers, claudication and sudden neurologic changes GI: Negative for abdominal discomfort, blood in stools or black stools or change in bowel habits : No history of dysuria, frequency, or incontinence and No difficulty urination, nocturia >1 times per night or hematuria Endo: Negative for cold or heat intolerance, polyuria, polydipsia and goiter Heme/Lymph: Negative for prolonged bleeding, bruising easily or swollen nodes Neurologic: No history or headaches, syncope, paralysis, seizures or tremors Integumentary: Negative for lesions, rash, and itching. Additional systems reviewed: No additional systems reviewed PHYSICAL EXAM: (8) BP 100/68 (BP Site: Left Arm, BP Position: Sitting, BP Cuff Size: Large Adult) Pulse 68 Resp 18 Ht 5' 9 (1.753 m) Wt 136 lb (61.7 kg) SpO2 96% BMI 20.08 kg/m Constitutional: Well developed, Well nourished , Thin, No acute distress. Smells of smoke HEENT: PERRLA, EOM's intact, Sclera -no icterus, Upper and lower Dentures, No lesions, Neck No masses, No cervical, supraclavicular, or axillary adenopathy and supple, JVD - no and Bruits - no Resp: Clear, Respiratory effort: normal Cardiovascular: Regular rate & rhythm, No heaves, No lifts, No thrills and S1, S2 normal GI: Soft, Non-tender, Bowel sounds present and Non-distended Integumentary: Warm, Dry and No rash on chest, arms or legs Musculoskeletal: No deformities Neurological/Psychiatric: Oriented to time, place & person , Alert, Oriented, Lathe Puller strength 5/5bilat , Steady gait and No gross focal neurologic deficits Additional systems reviewed: No additional systems reviewed Labs: BMP: Lab Results Component Value Date Sodium 139 09/11/2021 Potassium 4.2 09/11/2021 Chloride 99 09/11/2021 CO2 31 (H) 09/11/2021 Glucose 88 09/11/2021 BUN 8 (L) 09/11/2021 Creatinine 0.94 09/11/2021 Calcium, Total 9.4 09/11/2021 Anion Gap 9 09/11/2021 CMP: Lab Results Component Value Date Albumin 4.3 09/11/2021 Calcium, Total 9.4 09/11/2021 Bilirubin, Total 0.5 09/11/2021 Alkaline Phosphatase 96 09/11/2021 AST 18 09/11/2021 ALT 14 09/11/2021 Glucose 88 09/11/2021 BUN 8 (L) 09/11/2021 Creatinine 0.94 09/11/2021 Sodium 139 09/11/2021 Potassium 4.2 09/11/2021 Chloride 99 09/11/2021 CO2 31 (H) 09/11/2021 Anion Gap 9 09/11/2021 Estimated Glomerular Filtration Rate 89 09/11/2021 CBC: Lab Results Component Value Date WBC 9.76 09/11/2021 RBC 4.64 09/11/2021 Hemoglobin 14.9 09/11/2021 Hematocrit 45.7 09/11/2021 MCV 98.5 09/11/2021 MCH 32.1 09/11/2021 MCHC 32.6 09/11/2021 RDW-CV 12.5 09/11/2021 Platelet Count 341 09/11/2021 MPV 9.6 09/11/2021 Absolute nRBC <0.01 09/11/2021 HGB A1C: Lab Results Component Value Date Hemoglobin A1C 6.0 (H) 07/21/2021 INR PT: Lab Results Component Value Date PT Sec 10.9 09/11/2021 INR 1.0 09/11/2021 TSH: Lab Results Component Value Date TSH 3.680 07/21/2021 No results found for this basename: chol,hdl,ldl DATA: I have personally reviewed the following data: Cardiac Catheterization: GINA/TTE: CXR: Carotids: Labs: Impression: In summary,Radha Brennan is a 65-year-old man with a history of coronary disease who probably suffered an anterior wall IL in 2018 and had a good result with stenting to the LAD and D2 with fairly well preserved left ventricle function who now presents with unstable anginal symptoms and is found to have severe multivessel disease include involving the LAD, D1, D2. No problems updated. Plan: Procedure: CABG scheduled on 10/01/[address] Dominguez. The risks, benefits and anticipated outcomes of the procedure, the risks and benefits of the alternatives to the procedure, and the roles and tasks of the personnel to be involved, were discussed with the patient. Consent was previously obtained by Dr. Dominguez. - H& P updated, which is consistent with recent evaluation performed by Dr. Dominguez/Suhas - Reviewed all pre-op labs, images and reports- UA pending at time of documentation - MRSA screen completed - Pre-op teaching and consultation provided - CHG 4% solution provided to patient along with instructions - Pre-op nutritional drinks were provided - ERAS protocol educated: patient to takeTylenol on DOS - Patient also to take BB and ASA on DOS - Hold anticoagulants 5 days prior surgery, last day: 09/15/21 for Plavix - MUPIROCIN script is provided - Patient and family have no questions at this time, contact offered for further concerns/questions YEMI Munoz APRN.BULL BUCKER documented in this encounterMartin [facility]06-[facility]22 Miscellaneous Notes* Telephone Encounter - Warren Luciano - 09/08/2021 9:22 AM EDT Phoned pt regarding new surgery date. CABG 09/21/21 arrival time at 6am procedure time 7:30am at [facility] COVID test 09/18/21 2pm in [place]. documented in this encounterMartin [facility]06-01-2022 Evaluation note* Diagnosis Onset Date Resolution Status Coronary artery disease with angina pectoris acute History of coronary artery bypass surgery September, acute Status post coronary artery bypass graft acute Atherosclerotic heart diseas e of [place] coronary artery without angina pectoris chronic CVA (cerebral vascular accident) chronic Essential tremor chronic Hyperlipidemia chronic Nicotine dependence chronic Stented coronary artery October 06, 2017 ch [facility]onic Scalp pain acute Scalp wound acute Nicotine dependence chronic History of coronary artery bypass surgery September, acute Postoperative atrial fibrillation acute Syncope and collapse acute Atherosclerotic heart diseas e of [place] coronary artery without angina pectoris chronic Epilepsy chronic Hyperlipidemia chronic Scalp pain acute Scalp wound acute Nicotine dependence chronic Cervical spinal stenosis chr onic Epilepsy chronic Essential tremor chronic Cerebrovascular disease reso lved Dizziness acute Scalp wound acute Vertigo resolved [facility] Work Phone: 1(155) 412-222406-01-2022 Evaluation note* Diagnosis Onset Date Resolution Status Coronary artery disease with angina pectoris acute History of coronary artery bypass surgery September, acute Status post coronary artery bypass graft acute Atherosclerotic heart diseas e of [place] coronary artery without angina pectoris chronic CVA (cerebral vascular accident) chronic Essential tremor chronic Hyperlipidemia chronic Nicotine dependence chronic Stented coronary artery October 06, 2017 ch ronic Scalp pain acute Scalp wound acute Nicotine dependence chronic History of coronary artery bypass surgery September, acute Postoperative atrial fibrillation acute Syncope and collapse acute Atherosclerotic heart diseas e of [place] coronary artery without angina pectoris chronic Epilepsy chronic Hyperlipidemia chronic Scalp pain acute Scalp wound acute Nicotine dependence chronic Cervical spinal stenosis chr onic Epilepsy chronic Essential tremor chronic Cerebrovascular disease reso lved Dizziness acute Scalp wound acute Vertigo resolved Acute encephalopathy acute History of coronary artery bypass surgery September, acute Seizures acute Epilepsy chronic [facility] Work Phone: 1(207) 895-784206-01-2022 Evaluation note* Diagnosis Onset Date Resolution Status Coronary artery disease with angina pectoris acute History of coronary artery bypass surgery September, acute Status post coronary artery bypass graft acute Atherosclerotic heart diseas e of [place] coronary artery without angina pectoris chronic CVA (cerebral vascular accident) chronic Essential tremor chronic Hyperlipidemia chronic Nicotine dependence chronic Stented coronary artery October 06, 2017 ch ronic Scalp pain acute Scalp wound acute Nicotine dependence chronic History of coronary artery bypass surgery September, acute Postoperative atrial fibrillation acute Syncope and collapse acute Atherosclerotic heart diseas e of [place] coronary artery without angina pectoris chronic Epilepsy chronic Hyperlipidemia chronic Scalp pain acute Scalp wound acute Nicotine dependence chronic Cervical spinal stenosis chr onic Epilepsy chronic Essential tremor chronic Cerebrovascular disease reso lved Dizziness acute Scalp wound acute Vertigo resolved Acute encephalopathy acute History of coronary artery bypass surgery September, acute Pulmonary nodule acute Seizures acute Epilepsy chronic [facility] Work Phone: 1(225) 607-379306-01-2022 Evaluation note* Diagnosis Onset Date Resolution Status Coronary artery disease with angina pectoris acute History of coronary artery bypass surgery September, acute Status post coronary artery bypass graft acute Atherosclerotic heart diseas e of [place] coronary artery without angina pectoris chronic CVA (cerebral vascular accident) chronic Essential tremor chronic Hyperlipidemia chronic Nicotine dependence chronic Stented coronary artery October 06, 2017 ch ronic Scalp pain acute Scalp wound acute Nicotine dependence chronic History of coronary artery bypass surgery September, acute Postoperative atrial fibrillation acute Syncope and collapse acute Atherosclerotic heart diseas e of [place] coronary artery without angina pectoris chronic Epilepsy chronic Hyperlipidemia chronic Scalp pain acute Scalp wound acute Nicotine dependence chronic Cervical spinal stenosis chr onic Epilepsy chronic Essential tremor chronic Cerebrovascular disease reso lved Dizziness acute Scalp wound acute Vertigo resolved History of coronary artery bypass surgery September, acute Pulmonary nodule acute Seizures acute Epilepsy chronic Stented coronary artery October 06, 2017 ch [facility] Acute encephalopathy resolve d [facility] Work Phone: 1(602) 789-169606-01-2022 Evaluation note* Diagnosis Onset Date Resolution Status Scalp pain acute Scalp wound acute Nicotine dependence chronic History of coronary artery bypass surgery September, acute Postoperative atrial fibrillation acute Syncope and collapse acute Atherosclerotic heart diseas e of [place] coronary artery without angina pectoris chronic Epilepsy chronic Hyperlipidemia chronic Scalp pain acute Scalp wound acute Nicotine dependence chronic Cervical spinal stenosis chr onic Epilepsy chronic Essential tremor chronic Cerebrovascular disease reso lved Dizziness acute Scalp wound acute Vertigo resolved History of coronary artery bypass surgery September, acute Pulmonary nodule acute Seizures acute Epilepsy chronic Stented coronary artery October 06, 2017 [facility] Acute encephalopathy resolve d Abnormal PET of right lung a cute Nicotine dependence, cigarettes, uncomplicated acute Pulmonary nodule acute [facility] Work Phone: 1(548) 439-789006-01-2022 Evaluation note* Diagnosis Onset Date Resolution Status Scalp pain acute Scalp wound acute Nicotine dependence chronic History of coronary artery bypass surgery September, acute Postoperative atrial fibrillation acute Syncope and collapse acute Atherosclerotic heart diseas e of [place] coronary artery without angina pectoris chronic Epilepsy chronic Hyperlipidemia chronic Scalp pain acute Scalp wound acute Nicotine dependence chronic Cervical spinal stenosis chr onic Epilepsy chronic Essential tremor chronic Cerebrovascular disease reso lved Dizziness acute Scalp wound acute Vertigo resolved History of coronary artery bypass surgery September, acute Pulmonary nodule acute Seizures acute Epilepsy chronic Stented coronary artery October 06, 2017 ch [facility] Acute encephalopathy resolve d Abnormal PET of right lung a cute Nicotine dependence, cigarettes, uncomplicated acute Pulmonary nodule acute Abnormal PET of right lung a cute [facility] Work Phone: 1(499) 313-621106-01-2022 Evaluation note* Diagnosis Onset Date Resolution Status History of coronary artery bypass surgery September, acute Pulmonary nodule acute Seizures acute Epilepsy chronic Stented coronary artery October 06, 2017 ch [facility] Acute encephalopathy resolve d Abnormal PET of right lung a cute Pulmonary nodule acute Nicotine dependence, cigarettes, uncomplicated chronic Abnormal PET of right lung a cute Abnormal PET of right lung a cute Nicotine dependence, cigarettes, uncomplicated chronic [facility] Work Phone: 1(777) 229-460705-20-2022 Miscellaneous Notes* Telephone Encounter - Warren Luciano - 08/21/2021 4:09 PM EDT Phoned pt regarding future appts. Itinerary mailed to his home. Preadmission instructions 09/11/21 2pm. Preoperative labs to be drawn while, since pt comes from [place]. COVID test 09/15/21 @ [place] [facility] CABG 09/18/21 arrival time 6am procedure time 7:30am at [facility]. * Telephone Encounter - Warren Luciano - 08/14/2021 9:59 AM EDT Pt calling to reschedule CABG with Dr. Dominguez. documented in this encounterMartin [facility] Hospital04-30-2022 NoteHNO ID: [id number] Author: Liset Ocampo APRN.BULL BUCKER Service: ? Author Type: Nurse Practitioner Type: Progress Notes Filed: 08/01/2021 1:43 PM Note Text: No show to pre-op appointment- opened in error.[facility] 07-24-2021 Miscellaneous Notes* Telephone Encounter - Warren Luciano - 07/24/2021 1:27 PM EDT Mr. Brennan missed his preoperative instructions appt twice therefore 07/27/21 CABG needs to be reschedule to allow for this appt to take place. Left detailed message canceling surgery and requesting call back to reschedule. documented in this encounterMartin [facility] Hospital04-22-2022 Miscellaneous Notes* Telephone Encounter - Marques Curiel - 07/24/2021 10:45 AM EDT LM for patient to call us back PATRICIA. We have to cancel his surgery since he did not show up for hisappointment today. Gave him our number to call when he is able to. documented in this encounterMartin [facility] Hospital04-21-2022 NoteHNO ID: [id number] Author: Liset Ocampo APRN.BULL BUCKER Service: Cardiovascular Surgery Author Type: Nurse Practitioner Type: Plan of Care Filed: 07/23/2021 6:04 PM Note Text: CTVS Surgery Pre-Op Open Heart Check List Patient Info: Radha Brennan 1955 65 year old STS RISK SCORE: 1.130% Pre-Op Testing: LABS: CHEMISTRY Sodium (mmol/L) Date Value 07/21/2021 138 Chloride (mmol/L) Date Value 07/21/2021 99 CO2 (mmol/L) Date Value 07/21/2021 30 BUN (mg/dL) Date Value 07/21/2021 18 Creatinine (mg/dL) Date Value 07/21/2021 0.90 Glucose (mg/dL) Date Value 07/21/2021 98 Magnesium (mg/dL) Date Value 07/21/2021 2.0 Protein, Total (g/dL) Date Value 07/21/2021 6.7 Calcium, Total (mg/dL) Date Value 07/21/2021 8.8 Bilirubin, Total (mg/dL) Date Value 07/21/2021 <0.2 Alkaline Phosphatase (U/L) Date Value 07/21/2021 105 ALT (U/L) Date Value 07/21/2021 14 AST (U/L) Date Value 07/21/2021 17 Anion Gap (mmol/L) Date Value 07/21/2021 9 { Lipid Panel No results found for: CHOL, HDL, LDL, TG NT Pro BNP No results found for: PBNP ENDOCRINE Hemoglobin A1C (%) Date Value 07/21/2021 6.0 Lab Results Component Value Date TSH 3.680 07/21/2021 HEMATOLOGY RBC (m/uL) Date Value 07/21/2021 4.48 Hemoglobin (g/dL) Date Value 07/21/2021 14.7 Hematocrit (%) Date Value 07/21/2021 43.5 WBC (k/uL) Date Value 07/21/2021 12.48 Platelet Count (k/uL) Date Value 07/21/2021 316 COAGULATION PT Sec Date Value Ref Range Status 07/21/2021 10.4 9.7 - 13.0 sec Final INR Date Value Ref Range Status 07/21/2021 1.0 0.9 - 1.3 Final Comment: Vitamin K Antagonist (VKA) Therapeutic Range: INR 2 to 3 (Target INR of 2.5) Note: For patients treated with VKA drugs, such as warfarin, the [employer] 2012 Guideline recommends a therapeutic INR range of 2 to 3 (target INR of 2.5). This recommendation includes high-risk patients with antiphospholipid syndrome with previous arterial or venous thromboembolism, current-generation mechanical or bioprosthetic aortic heart valve replacement. Note: Patients with mechanical aortic valve replacement and additional risk factors for thromboembolic events (atrial fibrillation, previous thromboembolism, LV dysfunction, hypercoagulable conditions) or an older generation mechanical AVR (i.e., ball in-Cage) or any mechanical MVR should have a INR therapeutic range of 2.5 to 3.5 (target INR of 3). Gabrielyatt GH, et al. Chest 2012, 141:7S-47S Jose Angel RA, et al. [facility] 2017, 70: 252-289 Anemia Evaluation: Anemic: No Accept Blood: Yes Blood Conservation Committee: No IF anemia, IRON/ANEMIA studies done: Studies included: Ferritin, FE+TIBC, Fe Sat, FOBT Anemia Treatment: UA No results found for: UPH, SPGR, UGLUC, UBILI, UKET, UHB, UPROT, UROBILINOGEN, NITRITES, LEUKEST, UWBC, BACTERIAUR MRSA Screen: Yes Mupirocin RX started: Yes COVID TEST: Yes Chronic Lung Disease: No FEVI: 113 DLCO: ABG: BRITTNEY: No IMAGING/PROCEDURES: CXR: Yes CT Chest without contrast : Cardiac Catheterization: Yes 2D Echo: Yes 5 Meter Walk Test: Yes OPTIONAL TESTINGS: Carotid U/S: Yes Lower EXT ROSE: Palmar Arch: Vein Mapping: Dental Clearance: Medications: Stop blood thinner: OAC/PLAVIX: Yes Aspirin 81 mg Yes Beta Millie: Yes Tylenol 1000 mg DOS: Yes Neurontin 200 mg DOS: Yes RENY/ARB: Stop 24 hours preop Peridex oral rinse: Yes Steroids: Chronic Immunosuppressive drugs: Heparin stop time addressed: SGLT 2 inhibitor hold 3-4 days: PRE-OP Type AND Screen, RBC Cross match Yes TEG/HEPARINASE TEG: Per anestheisa Implantable Device: No Turned off date: Perioperative Transfusion risk Advanced age No Preoperative anemia No Non-CABG surgery No Preoperative anticoagulation Yes Clotting abnormalities No Female gender No Small body habitus Yes Renal insufficiency No IDDM No Sepsis No Liver disease No Post-operative Wound Healing - Vest recommended TBD (Yes to any one of the below requires a post thorax vest) Risk Factors: Obesity, DM, Renal Dx, COPD, Bilateral ABBEY Dietitian consultation: Post-op Drinks provided (outpatient setting): Yes CLEARANCES NEEDED Pulmonary: No Hematology: No Nephrology No Vascular surgery No Other No Liset Ocampo APRN.[facility]04-21-2022 NoteHNO ID: [id number] Author: JAMILAH Waller Service: Radiology Author Type: Technologist Type: Progress Notes Filed: 07/23/2021 2:13 PM Note Text: Radiology Service Progress Note DATE OF SERVICE: July 23, 2021 TIME: 2:13 PM PATIENT IDENTITY VERIFICATION COMPLETED USING TWO (2) STANDARD IDENTIFIERS: Name and Date of confirmed by patient verbally and Name and Date of confirmed by identification band. FALL SCREENING: Has the patient had 2 falls in the last year or 1 fall with injury or currently using an Ambulatory Assistive Device (Walker, Cane, Wheelchair, Crutches, etc.)? No PATIENT GENDER DATA: Male PATIENT RELEVANT IMPLANT DATA REVIEWED: Not Applicable ALLERGIES: Reviewed and unchanged CONTRAST ALLERGY: NO. EXAM: CT -CONTRAST INDUCED NEPHROPATHY RISK FACTORS: Patient age > 60 years CREATININE: Creatinine Date Value Ref Range Status 07/21/2021 0.90 0.73 - 1.22 mg/dL Final Estimated Glomerular Filtration Rate Date Value Ref Range Status 07/21/2021 94 >=60 mL/min/1.73m? Final Comment: Estimated Glomerular Filtration Rate (eGFR) is calculated using the 2020 CKD-EPI creatinine equation. This equation utilizes serum creatinine, sex, and age as parameters. The creatinine assay has traceable calibration to isotope dilution-mass spectrometry. Refer to KDIGO guidelines for clinical interpretation. In patients with unstable renal function, e.g. those with acute kidney injury, the eGFR may not accurately reflect actual GFR. P.O.C.T. RESULTS: N/A July 23, 2021 TREATMENT: N/A PERIPHERAL IV DATA: Ambulatory: A peripheral IV was started in the Right antecubital site with a Angio cath: 20 gauge. RADIOLOGY DEPARTMENT: CT; Exam(s) Completed: CTA Cardiac SIGNATURE: JAMILAH Waller PATIENT NAME: Radha Brennan DATE: July 23, 2021 TIME: 2:13 PMRiverview Health [id number] History of Present illness Narrative* Kaelyn RodriguezEmaniJAMILAH nixon - 07/23/2021 1:30 PM EDT Radiology Service Progress Note DATE OF SERVICE: July 23, 2021 TIME: 2:13 PM PATIENT IDENTITY VERIFICATION COMPLETED USING TWO (2) STANDARD IDENTIFIERS: Name and Date of confirmed by patient verbally and Name and Date of confirmed by identification band. FALL SCREENING: Has the patient had 2 falls in the last year or 1 fall with injury or currently using an Ambulatory Assistive Device (Walker, Cane, Wheelchair, Crutches, etc.)? No PATIENT GENDER DATA: Male PATIENT RELEVANT IMPLANT DATA REVIEWED: Not Applicable ALLERGIES: Reviewed and unchanged CONTRAST ALLERGY: NO. EXAM: CT -CONTRAST INDUCED NEPHROPATHY RISK FACTORS: Patient age > 60 years CREATININE: Creatinine Date Value Ref Range Status 07/21/2021 0.90 0.73 - 1.22 mg/dL Final Estimated Glomerular Filtration Rate Date Value Ref Range Status 07/21/2021 94 >=60 mL/min/1.73m Final Comment: Estimated Glomerular Filtration Rate (eGFR) is calculated using the 2020 CKD-EPI creatinine equation. This equation utilizes serum creatinine, sex, and age as parameters. The creatinine assay has traceable calibration to isotope dilution- mass spectrometry. Refer to KDIGO guidelines for clinical interpretation. In patients with unstable renal function, e.g. those with acute kidney injury, the eGFRmay not accurately reflect actual GFR. P.O.C.T. RESULTS: N/A July 23, 2021 TREATMENT: N/A PERIPHERAL IV DATA: Ambulatory: A peripheral IV was started in the Right antecubital site with a Angio cath: 20 gauge. RADIOLOGY DEPARTMENT: CT; Exam(s) Completed: CTA Cardiac SIGNATURE: JAMILAH Waller PATIENT NAME: Radha Brennan DATE: July 23, 2021 TIME: 2:13 PM documented in [facility]04[facility]22 Miscellaneous Notes* Telephone Encounter - Krunal Mcdonald, RT(R) - 07/21/2021 8:46 AM EDT PT: Radha Brennan MR# [id number] RESCHEDULED per Radiologist Dr. LENY RAMOS RADIOLOGIST. Pt needs a CTA GATED CHEST for PRE_OP OPEN HEART, Scan Cannot be done at [facility]. Please put new order for CTA GATED THORAX WITH CONTRAST IN, , HE IS SCHEDULED FOR July 23 PER RADIOLOGIST AT [facility]. documented in this encounterMartin [facility] Hospital04-14-2022 NoteHNO ID: [id number] Author: Shirley Jamil RRT Service: ? Author Type: Respiratory Therapist Type: Progress Notes Filed: 07/16/2021 11:23 AM Note Text: PULM FUNCTION SMARTBLOCK: Provider: Forrest Lott APRN.BULL BUCKER Assisting Tech: Shirley Jamil RRT Spirometry: 1 DLCO: 1 LV - Box: 1 System: [id number]04-04-[facility]22 Miscellaneous Notes* Telephone Encounter - Warren Luciano - 07/06/2021 2:16 PM EDT Phoned pt regarding future appts. Itinerary mailed to pt's home. 07/16/21 PFT's, Carotid US, CTA Chest @ [facility]. NPO 4 hours, water ok prior to CT scan Preadmission instructions and exam 07/20/21 1pm with Liset Ocampo CNP. Preoperative labs to be drawn on 07/20/21 while in town. No fasting required. Echocardiogram 07/21/21 9:40am [facility] COVID testing 4/22/22 11:30am @ [facility]. CABG 07/27/21 arrival time 6am procedure time 7:30am @ [facility]. documented in this encounterMartin [facility]03-25-2022 Miscellaneous Notes* Telephone Encounter - Forrest Lott APRN.CNP - 06/26/2021 1:11 PM EDT documented in this encounterMartin [facility] Hospital03-24-2022 NoteHNO ID: [id number] Author: Gregorio Dominguez MD Service: ? Author Type: Physician Type: Progress Notes Filed: 06/25/2021 11:58 AM Note Text: CARDIOTHORACIC SURGERY CONSULT / HANDP SERVICE DATE: 06/25/2021 SERVICE TIME: 11:45 AM Subjective PRIMARY SERVICE: Cardiothoracic Surgery CHIEF COMPLAINT: Symptomatic severe multivessel coronary artery disease HPI: This is a 65 year old man referred evaluation of symptomatic severe multivessel coronary artery disease and for consideration of bypass surgery. He has history of coronary artery disease. He underwent stenting with drug-eluting stents to the left anterior descending artery and second diagonal branch 2017 after presenting with anginal symptoms. He had a good result with this. Now experiencing exertional and nonexertional episodes of chest discomfort. He continues to work and is physically active. He may have some shortness of breath with this appears to be chronic in nature. Repeat left heart catheterization shows the following: Ejection fraction 65% by left ventriculography EDP 18 mmHg Left main normal LAD proximal 75% lesion before origin of stent Mid LAD stent intact Diagonal 1 ostial subtotal occlusion Diagonal 2 patent stent Circumflex artery normal Right coronary mild luminal irregularities An echo performed in 2018 showed largely well preserved left ventricular function with segmental dysfunction in the mid anterior, mid lateral, mid anteroseptal, apical and lateral apical areas with hypokinesia. There was thickening of the anterior leaf of the mitral valve and mild mitral annular calcification without valve dysfunction. Risk factors for coronary disease include ongoing and prolonged tobacco use (1.5 packs of series per day, started age 5). He has hyperlipidemia. Not diabetic. His other vascular issues. Has had previous stroke. MRI in 2019 showed mild cerebral atrophy; events of chronic white matter ischemic changes; previous watershed infarct in the right posterior parietal lobe. CT scan demonstrated stable posterior MCA territory infarction in 2018. CT also demonstrated normal right common carotid artery; normal right internal carotid artery; normal left common carotid artery; normal left internal carotid artery; suspicious for 50% lesions of the origin of bilateral subclavian arteries. Lung function test from 2018 demonstrated mild large airways obstructive ventilatory defect. 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 (HCC) - 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 (HCC) - LV dysfunction mild - Mixed hyperlipidemia - Seizure (HCC) - Tobacco use disorder PAST SURGICAL HISTORY Procedure Laterality Date - LUMBAR PUNCTURE - OTHER 2017 ptca ZOLTAN to mid LAF and second diagonal - PAST SURGICAL HISTORY OF lymph node resection FAMILY HISTORY Problem Relation Age of Onset - Heart Attack Mother - Heart Attack Brother Social History Tobacco Use - Smoking status: Current Every Day Smoker Packs/day: 1.50 Years: 61.00 Pack years: 91.50 Types: Cigarettes Last attempt to quit: 04/1949 Years since quittin.2 - Smokeless tobacco: Never Used Substance Use Topics - Alcohol use: Yes Comment: 0-2 drinks per day - Drug use: Not on file (Not in a hospital admission) clopidogrel (PLAVIX) 75 mg tablet, Take 75 mg by mouth once daily. isosorbide mononitrate ER (IMDUR) 30 mg 24 hr tablet, Take 30 mg by mouth once daily. lamoTRIgine (LAMICTAL) 25 mg tablet, Take 50 mg by mouth once daily. aspirin, enteric coated (ASPIRIN, ENTERIC COATED) 81 mg EC tablet, Take 81 mg by mouth once daily. primidone (MYSOLINE) 50 mg tablet, Take 50 mg by mouth twice daily. atorvastatin (LIPITOR) 40 mg tablet, Take 40 mg by mouth once daily. metoprolol succinate ER (TOPROL XL) 25 mg 24 hr tablet, Take 25 mg by mouth once daily. nitroglycerin sublingual (NITROQUICK) 0.4 mg SL tablet, Dissolve 1 tablet under the tongue every 5 minutes as needed for Chest Pain. May of three doses. ALLERGIES Allergen Reactions - Tuberculin, Purifie* Swelling - Venom-Honey Bee Swelling REVIEW OF SYSTEMS: As above. No fever, chills, cough, sputum, hepatic disease, renal disease, cancer, bleeding, thrombosis. Objective PHYSICAL EXAM: BP 112/70 (BP Site: Left Arm, BP Position: Sitting) Pulse 68 Resp 18 Ht 5' 8.5 (1.74 m) Wt 138 lb 9.6 oz (62.9 kg) SpO2 96% BMI 20.77 kg/m? Body surface area is 1.74 meters squared. On examination, he appears well and is breathing comfortably. Vitals signs are BP 112/70 (BP Site: Left Arm, BP Position: Sitting) Pulse 68 Resp 18 Ht 5' 8.5 (1.74 m) Wt 138 lb 9.6 oz (62.9 kg) SpO2 96% BMI 20.77 kg/m? . There is no J (more content not included)...[facility]03-24-2022 NoteHNO ID: [id number] Author: Forrest Lott APRN.BULL BUCKER Service: ? Author Type: Nurse Practitioner Type: Progress Notes Filed: 06/25/2021 11:58 AM Note Text: [facility] Adult Cardiac Surgery Database Version 4.20 RISK SCORES Procedure: Isolated CAB Risk of Mortality: 1.130% Renal Failure: 0.623% Permanent Stroke: 1.195% Prolonged Ventilation: 6.860% DSW Infection: 0.146% Reoperation: 3.841% Morbidity or Mortality: 10.974% Short Length of Stay: 50.020% Long Length of Stay: 4.336% Forrest Lott APRN.ODALISNorthern [facility]02-[facility] History of Past illness Narrative* Problem Noted Date Resolved Date Diarrhea 05/12/2020 09/28/2021 documented as of this encounter (statuses as of 09/28/2021) [facility] of Past illness Narrative* Problem Noted Date Resolved Date Diarrhea 05/12/2020 09/28/2021 documented as of this encounter (statuses as of 09/30/2021) [facility] of Past illness Narrative* Problem Noted Date Resolved Date Diarrhea 05/12/2020 09/28/2021 documented as of this encounter (statuses as of 10/02/2021) [address]-2021 History of Past illness Narrative* Problem Noted Date Resolved Date Diarrhea 05/12/2020 09/28/2021 documented as of this encounter (statuses as of 10/04/2021) [address]08-2021 History of Past illness Narrative* Problem Noted Date Resolved Date Diarrhea 05/12/2020 09/28/2021 documented as of this encounter (statuses as of 10/06/2021) [address]08-2021 History of Past illness Narrative* Problem Noted Date Resolved Date Diarrhea 05/12/2020 09/28/2021 documented as of this encounter (statuses as of 10/07/2021) [address]-2021 History of Past illness Narrative* Problem Noted Date Resolved Date Diarrhea 05/12/2020 09/28/2021 documented as of this encounter (statuses as of 10/09/2021) [address]-2021 History of Past illness Narrative* Problem Noted Date Resolved Date Diarrhea 05/12/2020 09/28/2021 documented as of this encounter (statuses as of 10/10/2021) [address]-2021 History of Past illness Narrative* Problem Noted Date Resolved Date Diarrhea 05/12/2020 09/28/2021 documented as of this encounter (statuses as of 10/15/2021) [address]-2021 History of Past illness Narrative* Problem Noted Date Resolved Date Diarrhea 05/12/2020 09/28/2021 documented as of this encounter (statuses as of 10/15/2021) [address]-2021 History of Past illness Narrative* Problem Noted Date Resolved Date Diarrhea 05/12/2020 09/28/2021 documented as of this encounter (statuses as of 10/17/2021) [address]21 History of Past illness Narrative* Problem Noted Date Resolved Date Diarrhea 05/12/2020 09/28/2021 documented as of this encounter (statuses as of 10/22/2021) [address]21 History of Past illness Narrative* Problem Noted Date Resolved Date Diarrhea 05/12/2020 09/28/2021 documented as of this encounter (statuses as of 10/26/2021) [facility] of [facility] illness Narrative* Problem Noted Date Resolved Date Diarrhea 05/12/2020 09/28/2021 documented as of this encounter (statuses as of 10/27/2021) [facility] of Past illness Narrative* Problem Noted Date Resolved Date Diarrhea 05/12/2020 09/28/2021 documented as of this encounter (statuses as of 11/06/2021) [facility] of Past illness Narrative* Problem Noted Date Resolved Date Diarrhea 05/12/2020 09/28/2021 documented as of this encounter (statuses as of 11/07/2021) [facility] Future Appointments Appointment Date:02/10/2023 09:30:00 AM Scheduled Provider:PARISH GRAFF DO Location:[facility] Appointment Type: OV [facility] Evaluation + Plan note Future Appointments Appointment Date:03/04/2023 08:00:00 AM Scheduled Provider:PARISH GRAFF DO Location:[facility] Appointment Type:PC OV Appointment Date:04/14/2023 02:00:00 PM Scheduled Provider:PARISH GRAFF DO [facility] Type: OV [facility] Evaluation + Plan note Future Appointments Appointment Date:03/10/2023 11:00:00 AM Scheduled Provider: Location:[facility] Appointment Type:VL AOH - Carotid US/Doppler Complete Appointment Date:04/14/2023 02:00:00 PM Scheduled Provider:PARISH GRAFF DO [facility] Appoint[facility] Type: OV Future Scheduled Tests Radiology* NM Myocardial Spect Rest/Stress 03/04/23 [facility] Evaluation + Plan note Future Appointments Appointment Date:03/16/2023 08:00:00 AM Scheduled Provider: Location:[facility] Appointment Type:NM Myocardial Spect Rest/Stress [facility] Appointment Date:03/16/2023 02:00:00 PM Scheduled Provider: Location:[facility] Appointment Type:CV Procedure - AOH Echo Appointment Date:03/17/2023 02:40:00 PM Scheduled Provider:JOHN MATUTE MD Location:[facility] Appointment Type: CABLE REELER Appointment Date:04/14/2023 02:00:00 PM Scheduled Provider:PARISH GRAFF DO Location:[facility] Appointment Type:PC OV Future Scheduled Tests Radiology* NM Myocardial Spect Rest/Stress 03/16/23 [facility] Evaluation + Plan note Future Appointments Appointment Date:03/17/2023 02:40:00 PM Scheduled Provider:JOHN MATUTE MD Location:[facility] Appointment Type: CABLE REELER Appointment Date:04/14/2023 02:00:00 PM Scheduled Provider:PARISH GRAFF DO Location:[facility] Appointment Type:PC OV [facility] Evaluation + Plan note Future Appointments Appointment Date:04/25/2023 10:00:00 AM Scheduled Provider:JONEL CHILEL JR, MD Location:[facility] Appointment Type:[facility] Hospital Follow Up Appointment Date:05/05/2023 11:30:00 AM Scheduled Provider:PARISH GRAFF DO Location:[facility] Appointment Type:PC OV Future Scheduled Tests Radiology* XR Spine Lumbar W/Obliques 4 Views 04/07/23 [facility] Evaluation + Plan note Future Appointments Appointment Date:02/16/2024 04:30:00 PM Scheduled Provider:PARISH GRAFF DO Location:[facility] Appointment Type:PC OV Future Scheduled Tests Laboratory* Prostate Specific Antigen 05/05/23 * A1C Hemoglobin 05/05/23 * Complete Blood Count 05/05/23 * Lipid Profile 05/05/23 * Hepatitis C Antibody IgG 05/05/23 * Complete Metabolic Panel 05/05/23 Radiology* XR Chest 2 Views (PA & Lateral) 05/24/23 * XR Spine Lumbar W/Obliques 4 Views 04/07/23 [facility] Evaluation + Plan note Future Appointments Appointment Date:02/29/2024 12:00:00 PM Scheduled Provider: Location:IR Appointment Type:IR Lymph Node Biopsy Appointment Date:03/08/2024 01:20:00 PM Scheduled Provider:JOHN MATUTE MD Location:[facility] Appointment Type:GS OV Post Op Appointment Date:03/19/2024 01:00:00 PM Scheduled Provider:PARISH GRAFF DO [facility] Type:PC OV Future Scheduled Tests Laboratory* Prostate Specific Antigen 05/05/23 * A1C Hemoglobin 05/05/23 * Complete Blood Count 05/05/23 * Lipid Profile 05/05/23 * Hepatitis C Antibody IgG 05/05/23 * Complete Metabolic Panel 05/05/23 Radiology* XR Chest 2 Views (PA & Lateral) 05/24/23 * XR Spine Lumbar W/Obliques 4 Views 04/07/23 * IR Lymph Node Biopsy 02/29/24 [facility] Evaluation + Plan note Future Appointments Appointment Date:07/05/2024 02:30:00 PM Scheduled Provider:PARISH GRAFF DO [facility] Appoint[facility] Type:PC OV Future Scheduled Tests Laboratory* Vitamin B1 (Thiamine), Blood 05/10/24 * Thyroid Stimulating Hormone 05/10/24 * Free T4 05/10/24 * Vitamin B12 Level 05/10/24 * A1C Hemoglobin 05/10/24 * Complete Blood Count 05/10/24 * Lipid Profile 05/10/24 * Albumin/Creatinine Ratio, Random Urine 05/10/24 * Complete Metabolic Panel 05/10/24 [facility] Evaluation + Plan note Future Appointments Appointment Date:11/01/2024 01:30:00 PM Scheduled Provider:PARISH GRAFF DO [facility] Appoint[facility] Type:PC Wellness Medicare Diagnostic Tests Pending * Urine Culture 08/04/24 Future Scheduled Tests Laboratory* Vitamin B1 (Thiamine), Blood 07/05/24 * Prostate Specific Antigen 07/05/24 * Thyroid Stimulating Hormone 07/05/24 * Free T4 07/05/24 * Vitamin B12 Level 07/05/24 * A1C Hemoglobin 07/05/24 * Complete Blood Count 07/05/24 * Lipid Profile 07/05/24 * Hepatitis C Antibody IgG 07/05/24 * Albumin/Creatinine Ratio, Random Urine 07/05/24 * Complete Metabolic Panel 07/05/24 [facility] Evaluation + Plan note Future Appointments Appointment Date:11/01/2024 01:30:00 PM Scheduled Provider:PARISH GRAFF DO [facility] Appoint[facility] Type:PC Wellness Medicare Diagnostic Tests Pending * Vitamin B1 (Thiamine), Blood 08/28/24 Future Scheduled Tests Laboratory* Albumin/Creatinine Ratio, Random Urine 07/05/24 [facility] Evaluation + Plan note Future Appointments Appointment Date:11/01/2024 01:30:00 PM Scheduled Provider:PARISH GRAFF DO Location:[facility] Appointment Type:PC Wellness Medicare Future Scheduled Tests Laboratory* Thyroid Stimulating Hormone 08/31/24 * Free T4 08/31/24 * Albumin/Creatinine Ratio, Random Urine 07/05/24 [facility] Evaluation + Plan note Future Appointments Appointment Date:11/01/2024 01:30:00 PM Scheduled Provider:PARISH GRAFF DO [facility] Appointment Type:PC Wellness Medicare Future Scheduled Tests Laboratory* Thyroid Stimulating Hormone 08/31/24 * Free T4 08/31/24 * Albumin/Creatinine Ratio, Random Urine 07/05/24 Radiology* XR Chest 2 Views (PA & Lateral) 10/04/24 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)- Primary Preoperative testing Preoperative examination, unspecified Disorder of arteries and arterioles (HCC) Unspecified disorders of arteries and arterioles Cerebrovascular accident (CVA), unspecified mechanism (HCC) [facility] Diagnosis Onset Date Resolution Status Coronary artery disease with angina pectoris acute Atrial septal aneurysm chron ic Hyperlipidemia chronic Seizure chronic Cerebrovascular disease acut e Epilepsy acute Essential tremor acute Chest pain acute Coronary artery disease with angina pectoris acute Hyperlipidemia chronic Cerebrovascular disease acut e Epilepsy acute Essential tremor acute [facility] Work Phone: Evaluation note* Diagnosis Chronic obstructive pulmonary disease, unspecified COPD type (HCC) 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) [facility] Disorder of arteries and arterioles (HCC) Unspecified disorders of arteries and arterioles 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) [facility] Diagnosis 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)- Primary Preoperative testing Preoperative examination, unspecified Disorder of arteries and arterioles (HCC) Unspecified disorders of arteries and arterioles 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) [facility] Diagnosis 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) Preoperative testing Preoperative examination, unspecified Disorder of arteries and arterioles (HCC) Unspecified disorders of arteries and arterioles 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) [facility] Diagnosis Coronary artery disease involving catawba coronary artery of cata[place]ba heart without angina pectoris- Primary Preoperative testing Preoperative examination, unspecified [facility] Diagnosis Pre-op examination- Primary Preoperative examination, unspecified Coronary artery disease involving catawba coronary artery of catawba heart without angina pectoris [facility] Diagnosis Hemoglobinuria- Primary Coronary artery disease involving catawba coronary artery of catawba heart without angina pectoris [facility] Diagnosis BPH with obstruction/lower urinary tract symptoms- Primary Hypertrophy of prostate with urinary obstruction and other lower urinary tract symptoms (LUTS) Hematuria, unspecified type 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 (HCC) Coronary artery disease involving catawba coronary artery of catawba heart without angina pectoris [facility] Diagnosis S/P CABG x 3- Primary Postsurgical aortocoronary bypass status Coronary artery disease involving catawba coronary artery of catawba heart without angina pectoris Paroxysmal atrial fibrillation (HCC) Atrial fibrillation Chronic obstructive pulmonary disease, unspecified COPD type (HCC) Tobacco abuse Tobacco use disorder Acute blood loss anemia Acute posthemorrhagic anemia Severe protein-calorie malnutrition (HCC) Other severe protein-calorie malnutrition [facility] Onset Date Resolution Status Cerebrovascular disease acut e Epilepsy acute Essential tremor acute Chest pain acute Coronary artery disease with angina pectoris acute Hyperlipidemia chronic Coronary artery disease with angina pectoris acute Essential tremor acute Low back pain acute CVA (cerebral vascular accident) chronic Hyperlipidemia chronic Nicotine dependence chronic Encounter to establish care noneactive Cerebrovascular disease acut e Essential tremor acute Status post coronary artery bypass graft acute Atherosclerotic heart diseas e of catawba coronary artery without angina pectoris chronic CVA (cerebral vascular accident) chronic [facility] Work Phone: Evaluation note* Diagnosis S/P CABG x 3- Primary Postsurgical aortocoronary bypass status Coronary artery disease involving catawba coronary artery of catawba heart without angina pectoris Paroxysmal atrial fibrillation (HCC) Atrial fibrillation Chronic obstructive pulmonary disease, unspecified COPD type (HCC) Acute blood loss anemia Acute posthemorrhagic anemia Severe protein-calorie malnutrition (HCC) Other severe protein-calorie malnutrition Tobacco abuse Tobacco use disorder [facility] [place] [facility] Diagnosis Onset Date Resolution Status Cerebrovascular disease acut e Epilepsy acute Essential tremor acute Chest pain acute Coronary artery disease with angina pectoris acute Hyperlipidemia chronic Coronary artery disease with angina pectoris acute Essential tremor acute Low back pain acute CVA (cerebral vascular accident) chronic Hyperlipidemia chronic Nicotine dependence chronic Encounter to establish care noneactive Cerebrovascular disease acut e Essential tremor acute Status post coronary artery bypass graft acute Atherosclerotic heart diseas e of [place] coronary artery without angina pectoris chronic CVA (cerebral vascular accident) chronic Arm pain, left acute History of coronary artery disease acute Musculoskeletal arm pain acu te Status post coronary artery bypass graft acute Nicotine dependence chronic [facility] Work Phone: Evaluation note* Diagnosis S/P CABG x 3- Primary Postsurgical aortocoronary bypass status Coronary artery disease involving [place] coronary artery of [place] heart without angina pectoris Paroxysmal atrial fibrillation (HCC) Atrial fibrillation Chronic obstructive pulmonary disease, unspecified COPD type (HCC) Acute blood loss anemia Acute posthemorrhagic anemia Tobacco abuse Tobacco use disorder Severe protein-calorie malnutrition (HCC) Other severe protein-calorie malnutrition [facility] S/P CABG x 3 Postsurgical aortocoronary bypass status [facility] Diagnosis Onset Date Resolution Status Cerebrovascular disease acut e Epilepsy acute Essential tremor acute Chest pain acute Coronary artery disease with angina pectoris acute Hyperlipidemia chronic Coronary artery disease with angina pectoris acute Essential tremor acute Low back pain acute CVA (cerebral vascular accident) chronic Hyperlipidemia chronic Nicotine dependence chronic Encounter to establish care noneactive Cerebrovascular disease acut e Essential tremor acute Status post coronary artery bypass graft acute Atherosclerotic heart diseas e of [place] coronary artery without angina pectoris chronic CVA (cerebral vascular accident) chronic Status post coronary artery bypass graft acute Nicotine dependence chronic Postoperative atrial fibrillation acute Status post coronary artery bypass graft acute Atherosclerotic heart diseas e of [place] coronary artery without angina pectoris chronic [facility] Work Phone: Evaluation note* Diagnosis Onset Date Resolution Status Coronary artery disease with angina pectoris acute Low back pain acute CVA (cerebral vascular accident) chronic Essential tremor chronic Hyperlipidemia chronic Nicotine dependence chronic Encounter to establish care noneactive Status post coronary artery bypass graft acute Atherosclerotic heart diseas e of [place] coronary artery without angina pectoris chronic CVA (cerebral vascular accident) chronic Essential tremor chronic Cerebrovascular disease reso lved Status post coronary artery bypass graft acute Nicotine dependence chronic Postoperative atrial fibrillation acute Status post coronary artery bypass graft acute Atherosclerotic heart diseas e of [place] coronary artery without angina pectoris chronic Anemia chronic Epilepsy chronic Essential tremor chronic Cerebrovascular disease reso lved [facility] Work Phone: Evaluation note* Diagnosis Onset Date Resolution Status Coronary artery disease with angina pectoris acute Low back pain acute CVA (cerebral vascular accident) chronic Essential tremor chronic Hyperlipidemia chronic Nicotine dependence chronic Encounter to establish care noneactive Status post coronary artery bypass graft acute Atherosclerotic heart diseas e of [place] coronary artery without angina pectoris chronic CVA (cerebral vascular accident) chronic Essential tremor chronic Cerebrovascular disease reso lved Status post coronary artery bypass graft acute Nicotine dependence chronic Postoperative atrial fibrillation acute Status post coronary artery bypass graft acute Atherosclerotic heart diseas e of [place] coronary artery without angina pectoris chronic Anemia chronic Epilepsy chronic Essential tremor chronic Cerebrovascular disease reso lved Chest wall pain acute Postoperative abdominal hernia acute Upper abdominal pain acute [facility] Work Phone: Evaluation note* Diagnosis Onset Date Resolution Status Status post coronary artery bypass graft acute Atherosclerotic heart diseas e of [place] coronary artery without angina pectoris chronic CVA (cerebral vascular accident) chronic Essential tremor chronic Cerebrovascular disease reso lved Status post coronary artery bypass graft acute Nicotine dependence chronic Postoperative atrial fibrillation acute Status post coronary artery bypass graft acute Atherosclerotic heart diseas e of [place] coronary artery without angina pectoris chronic Anemia chronic Epilepsy chronic Essential tremor chronic Cerebrovascular disease reso lved Chest wall pain acute Postoperative abdominal hernia acute Upper abdominal pain acute Postoperative atrial fibrillation acute Status post coronary artery bypass graft acute Atherosclerotic heart diseas e of [place] coronary artery without angina pectoris chronic Hyperlipidemia chronic Chest pain in adult acute History of coronary artery bypass surgery September, acute Postoperative atrial fibrillation acute Syncope and collapse acute Atherosclerotic heart diseas e of [place] coronary artery without angina pectoris chronic Epilepsy chronic Essential tremor chronic Hyperlipidemia [facility] Work Phone: Evaluation note* Diagnosis Onset Date Resolution Status Postoperative atrial fibrillation acute Status post coronary artery bypass graft acute Atherosclerotic heart diseas e of [place] coronary artery without angina pectoris chronic Anemia chronic Epilepsy chronic Essential tremor chronic Cerebrovascular disease reso lved Chest wall pain acute Postoperative abdominal hernia acute Upper abdominal pain acute Postoperative atrial fibrillation acute Status post coronary artery bypass graft acute Atherosclerotic heart diseas e of [place] coronary artery without angina pectoris chronic Hyperlipidemia chronic Chest pain in adult acute History of coronary artery bypass surgery September, acute Postoperative atrial fibrillation acute Syncope and collapse acute Atherosclerotic heart diseas e of [place] coronary artery without angina pectoris chronic Epilepsy chronic Essential tremor chronic Hyperlipidemia chronic History of coronary artery bypass surgery September, acute Postoperative atrial fibrillation acute Syncope and collapse acute Atherosclerotic heart diseas e of [place] coronary artery without angina pectoris chronic Epilepsy chronic Hyperlipidemia [facility] Work Phone: Evaluation note* Diagnosis Onset Date Resolution Status Anemia chronic Epilepsy chronic Essential tremor chronic Cerebrovascular disease reso lved Chest wall pain acute Postoperative abdominal hernia acute Upper abdominal pain acute Postoperative atrial fibrillation acute Status post coronary artery bypass graft acute Atherosclerotic heart diseas e of [place] coronary artery without angina pectoris chronic Hyperlipidemia chronic Chest pain in adult acute History of coronary artery bypass surgery September, acute Postoperative atrial fibrillation acute Syncope and collapse acute Atherosclerotic heart diseas e of [place] coronary artery without angina pectoris chronic Epilepsy chronic Essential tremor chronic Hyperlipidemia chronic History of coronary artery bypass surgery September, acute Postoperative atrial fibrillation acute Syncope and collapse acute Atherosclerotic heart diseas e of [place] coronary artery without angina pectoris chronic Epilepsy chronic Hyperlipidemia chronic Postoperative abdominal hernia acute Weight loss acute Nicotine dependence [facility] Work Phone: Evaluation note* Diagnosis Onset Date Resolution Status Anemia chronic Epilepsy chronic Essential tremor chronic Cerebrovascular disease reso lved Chest wall pain acute Postoperative abdominal hernia acute Upper abdominal pain acute Postoperative atrial fibrillation acute Status post coronary artery bypass graft acute Atherosclerotic heart diseas e of [place] coronary artery without angina pectoris chronic Hyperlipidemia chronic Chest pain in adult acute History of coronary artery bypass surgery September, acute Postoperative atrial fibrillation acute Syncope and collapse acute Atherosclerotic heart diseas e of [place] coronary artery without angina pectoris chronic Epilepsy chronic Essential tremor chronic Hyperlipidemia chronic History of coronary artery bypass surgery September, acute Postoperative atrial fibrillation acute Syncope and collapse acute Atherosclerotic heart diseas e of [place] coronary artery without angina pectoris chronic Epilepsy chronic Hyperlipidemia chronic Postoperative abdominal hernia acute Weight loss acute Nicotine dependence chronic History of coronary artery bypass surgery September, acute History of stroke acute Postoperative abdominal hernia acute Recurrent seizures acute Upper abdominal pain acute Atherosclerotic heart diseas e of [place] coronary artery without angina pectoris chronic Essential tremor chronic Hyperlipidemia chronic Nicotine dependence chronic [facility] Work Phone: Evaluation note* Diagnosis Onset Date Resolution Status Cervical spinal stenosis acu te Epilepsy chronic Essential tremor chronic Cerebrovascular disease reso lved Coronary artery disease with angina pectoris acute History of coronary artery bypass surgery September, acute Status post coronary artery bypass graft acute Atherosclerotic heart diseas e of [place] coronary artery without angina pectoris chronic CVA (cerebral vascular accident) chronic Essential tremor chronic Hyperlipidemia chronic Nicotine dependence chronic Stented coronary artery October 06, 2017 [facility] Work Phone: Evaluation note* Diagnosis Onset Date Resolution Status Nicotine dependence, cigarettes, uncomplicated chronic [facility] Work Phone: Evaluation note* Diagnosis Tremor- Primary Abnormal involuntary movements Partial symptomatic epilepsy with complex partial seizures, intractable, without status epilepticus (CMS/HCC) [facility] Diagnosis Tremor Abnormal involuntary movements [facility] Diagnosis Tremor Abnormal involuntary movements [facility] Author Zaki Vigil [facility] November 01, 2022 11:51pm Note Date/Time November 01, 2022 11:5 1pm [facility] Medical Records Department [address] [place] [address] History & Physical Exam 11/01/22 [id number] MR#: [id number] Acct: [id number] Name: RADHA BRENNAN Rep #:[id number] : 1955 67 From: Zaki Vigil MD PCP: Dr. Radha Quintero MD Status:REG ER Location: ED HPI - General General Date of Admission: 11/01/22 Date of Service: 11/01/22 Chief Complaint: Seizure disorder HPI Narrative RADHA BRENNAN, is a 67 M who presents to the emergency room after experiencing a seizure at home. Patient has a history of seizure disorder for which he takes Lamictal routinely but started reminiscing about his who has been since 2014 and became stressed and induced a seizure at home lasting several minutes and ambulance was called. He had a recurrent seizure here witnessed in the emergency room that was full tonic-clonic. He has received several doses ofbenzodiazepine including midazolam and Ativan during the day and now is more confused and postictal. Patient is poor historian at present time and per friends visiting he is not at his current baseline mental status. Currently does not appear to be in any acute distress and will be admitted for observationfor recovery from his seizures. He will be given a dose of Keppra this evening as he responded well to it previously but did not continue it as an outpatient. He sees Dr. Sandhu in [place] for neurology care. [facility] Medical History Abnormal electrocardiogram 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 Atrial septal aneurysm Chronic back pain Complex laceration of scalp CVA (cerebral vascular accident) Fall from ladder Heart valve problem History of left heart catheterization (LHC) (~05/27/21) Hyperlipidemia Nicotine dependence Postoperative atrial fibrillation Scalp pain Scalp wound Seizure Syncope and collapse Home Medications acetaminophen 500 mg capsule 1,000 mg (2 x 500 mg) PO Q6H PRN pain #120 caps 02/24/22 [Rx Last Taken Unknown] folic acid 1 mg tablet 1 mg PO DAILY #90 tabs 03/30/22 [Rx Last Taken Unknown] magnesium oxide 400 mg (241.3 mg magnesium) tablet 400 mg PO DAILY #90 tabs 03/30/22 [Rx Last Taken Unknown] ondansetron 4 mg disintegrating tablet 4 mg PO Q6H PRN nausea and vomiting #10 tabs 04/10/22 [Rx Last Taken Unknown] ascorbate calcium (vitamin C) 500 mg tablet 500 mg PO DAILY #90 tabs 03/15/23 [Rx Last Taken Unknown] aspirin 81 mg tablet,delayed release (Adult Aspirin Regimen) 81 mg PO DAILY #90 tabs 06/16/22 [Rx Last Taken Unknown] clopidogrel 75 mg tablet (Plavix) 75 mg PO DAILY #90 tabs 06/16/22 [Rx Last Taken Unknown] ferrous sulfate 325 mg (65 mg iron) tablet (FeroSul) 325 mg PO DAILY #90 tabs 06/16/22 [Rx Last Taken Unknown] multivitamin with folic acid 400 mcg tablet (Daily-Tin (with folic acid)) 1 tabPO DAILY #90 tabs 06/16/22 [Rx Last Taken Unknown] thiamine HCl (vitamin B1) 100 mg tablet 100 mg PO TID #90 tabs 06/16/22 [Rx Last Taken Unknown] amiodarone 200 mg tablet 100 mg (1/2 x 200 mg) PO DAILY #90 tabs 06/18/22 [Rx Last Taken Unknown] atorvastatin 40 mg tablet 40 mg PO QHS #30 tabs 08/10/22 [Rx Last Taken Unknown] lamotrigine 100 mg tablet 100 mg PO BID #60 tabs 09/09/22 [Rx Last Taken Unknown] primidone 50 mg tablet 100 mg (2 x 50 mg) PO TID tremor #180 tabs 09/09/22 [Rx Last Taken Unknown] Allergy/AdvReac Type Severity Reaction Status Date / Time bee venom protein (honey bee) Allergy Severe Anaphylaxis Verified 09/09/22 20:14 tuberculin, purified protein Allergy Severe Swelling Verified 09/09/22 20:14 deriva Family History Mother Myocardial infarction Brother Myocardial infarction Surgical History finger surgery History of coronary artery bypass surgery (~09/21/21) History of lumbar puncture (~04/2017) lymph node resection S/P triple vessel bypass Stented coronary artery (10/06/17) Social History household members: family Smoking Status: Current every day smoker tobacco type: cigarettes Tobacco: How many years used: 61 Electronic Cigarette Use: not used second hand exposure: Yes alcohol intake: current alcohol intake frequency: a few times a month Alcohol type: hard liquor details: Patient reduced his alcohol intake when 'his lady passed in 2014' substance use type: does not use caffeine: Yes Type: carbonated beverages and coffee ROS Review of Systems ROS Unobtainable: due to encephalopathy and due to mental status Vital Signs Vital Signs Vital Signs: 11/01/22 21:07 11/01/22 21:50 11/01/22 23:15 Temperature 97.2 F L Temperature Source Temporal Pulse Rate 65 60 58 L Respiratory Rate 15 18 16 Blood Pressure 107/68 111/72 109/70 Blood Pressure Mean 81 85 83 Pulse Ox 98 100 97 Oxygen Delivery Method Room Air Nasal Cannula Room Air Oxygen Flow Rate (L/min) 2 Weight Weight: 149 lb 11.102 oz Body Mass Index (BMI) 22.1 Physical Exam Const Orientation / Consciousness: confused and lethargic HEENT normocephalic and head/scalp atraumatic Neck no lymphadenopathy Resp normal respiratory effort, normal air movement and clear to auscultation bilaterally Cardio regular rate, regular rhythm, S1 normal heart sound and S2 normal heart sound GI normal to inspection, nondistended, normoactive bowel sounds Extremity normal capillary refill Skin General Skin Exam: no breakdown Neuro Neuro Narrative: Unable to assess due to confusion Psych Thought Content: delusion(s) Results Lab / Micro Data 11/01/22 21:30 11/01/22 21:30 Labs: Laboratory Results - last 24 hr 11/01/22 21:30: WBC 11.9 H, RBC 4.09 L, Hgb 13.7, Hct 42.6, MCV 104.2 H, MCH 33.5 H, MCHC 32.2, RDW Std Deviation 49.4 H, RDW Coeff of Verito 12.8, Plt Count 234, MPV 9.9, Immature Gran % (Auto) 0.200, Neut % (Auto) 46.8 L, Lymph % (Auto)40.6, Cook % (Auto) 5.3, Eos % (Auto) 6.5 H, Baso % (Auto) 0.6, Absolute Neuts (auto) 5.6, Absolute Lymphs (auto) 4.85 H, Nucleated RBC % 0, Atypical Lymphocytes 2+, Platelet Estimate ADEQUATE, RBC Morphology N CHROM, Anisocytosis1+, Macrocytosis 1+, Ovalocytes RARE, Sodium 135 L, Potassium 4.5, Chloride 105,Carbon Dioxide 25.0, Anion Gap 5, BUN 15, Creatinine 1.00, Estim Creat Clear Calc 67.90, Est GFR (MDRD) Af Amer 96, Est GFR (MDRD) Non-Af 79, BUN/Creatinine Ratio 15.0, Glucose 77, Calcium 8.4 L, Total Bilirubin 0.50, AST 29, ALT 27, Alkaline Phosphatase 79, Troponin I High Sens 7, Total Protein 6.6, Albumin 3.3,Globulin 3.3, Albumin/Globulin Ratio 1.0, Lipase 14 11/01/22 22:20: Lactic Acid 1.1 Rhythm Strip Rhythm Strip: Sinus Rhythm Rate: 65 Ectopy: None Radiology Impression Brain CT 11/01/22 21:43 IMPRESSION: 1. Stable exam. 2. Encephalomalacic change and chronic gliosis in the RIGHT hemisphere localized within the RIGHT inferior parietal lobule, RIGHT temporal lobe and RIGHT occipital lobe without change. 3. No intracranial mass, hemorrhage or acute territorial infarct. 4. Chronic ethmoid sinus disease. Electronically Signed: Juan R George MD at 22:40 EDT , Abdomen/Pelvis CT 11/01/22 21:44 IMPRESSION: 1. Stable exam. 2. 11 x 13 mm noncalcified pulmonary nodule at the LEFT lung base. Findings are stable. Consider follow-up based on included recommendations. 3. Stable borderline hepatomegaly. No intrahepatic masses or ductal dilatation. 4. No evidence cholelithiasis or biliary ductal dilatation. 5. No evidence of renal calcifications or obstructive uropathy. 6. No masses bowel obstruction abscess free fluid or free air. Moderate stool burden is noted. 7. Diffuse cachexia again noted. Reference recommendations for pulmonary nodule follow-up: Fleischner Report Guidelines 2017 Evelia et al, Radiology 2017: https://pubs.rsna.org/doi/pdf/10.1148/radiol.3710167706 Nodule size: <6 mm SOLITARY low-risk: no follow-up needed high-risk: optional CT at 12 months MULTIPLE low-risk: no follow-up needed high-risk: optional CT at 12 months -- Nodule size: 6-8 mm SOLITARY low-risk: follow-up at 6-12 months, then consider further follow-up at 18-24 months high-risk: initial follow-up CT at 6-12 months and then at 18-24 months if no change MULTIPLE low-risk: follow-up CT at 3-6 months, then consider further follow-up at 18-24 months high-risk: initial follow-up CT at 3-6 months and then at 18-24 months ----- - Nodule size: >8 mm SOLITARY either low or high-risk patients consider follow-up CT at 3 months, and/or CT-PET, and/or biopsy MULTIPLE low-risk: follow-up CT at 3-6 months, then consider further follow-up at 18-24 months high-risk: initial follow-up CT at 3-6 months and then at 18-24 months Electronically Signed: Juan R George MD at 23:13 EDT , Assessment & Plan Assessment/Plan (1) Seizures: (2) Acute encephalopathy: (3) History of coronary artery bypass surgery: PLAN: Plan 1 seizure disorder?admit patient to progressive care unit with seizure precautions, observe for further seizure activity and recovery from his previoussurgeries. We will have Ativan as needed for any seizure activity. Continue Keppra started in the emergency room at discharge 2. Coronary artery disease history of coronary artery bypass?continue statin and other coronary element medications 3. DVT prophylaxis?low molecular weight heparin Charges/Coding Visit Charges OBSV E&M: 44336 Observ/hosp same date L2 11/01/22 9799 <Electronically signed by Zaki Vigil MD> Cosigner Signature (if applicable): CC: Dr. Radha Quintero MD; Dr. Zaki Vigil MD~ Signed [facility] Work Phone: Hospital course Narrative No data available for this section [facility] Discharge instructions Additional Instructions Plenty of fluids and rest. Zofran as needed for nausea which may swallow dissolve on your tongue. If you are not nauseated you do not need to take it at all. Follow-up with your primary care provider. The CAT scan of your abdomen that they ordered to have be done on Tuesday we had that completed tonight. You most likely also have an enlarged prostate causing you to urinate frequently. He can follow-up with a urologist for further evaluation of that.[facility] Work Phone: Hospital Discharge instructions Additional Instructions We are not going to change in your medications at this time. Call and follow-up with your primary care physician. I spoke with him today. No driving at this time.[facility] Work Phone: Hospital Discharge instructions Additional Instructions You have no signs of skull fracture, internal injuries or bleeding around the brain associated with your injury/fall today. You have a complex laceration to your scalp that was not able to be closed all the way. I would like you to follow-up with plastic surgery. In the meantime please keep the area moist with petroleum soaked gauze and covered. You been placed on empiric antibiotics and given a short course of pain medicine. Please call the plastic surgery office in the morning to arrange close outpatient follow-up. If you have further concerns please return to the emergency room. You may also follow-up with your primary care doctor.[facility] Work Phone: Hospital Discharge instructions No data available for this section [facility] Discharge instructions Additional Instructions Please follow-up with your primary care doctor [facility] Patient's home Plan of care note* Visit Details Visit Type -SN SOC Discipline -Detention Problems Problem Description Start Date Status Goals Interve ntions Medication Education Disciplines: Skilled Services 09/30/2021 Active 1 goal linked to scheduled/document ed intervention 1 goal intervention scheduled/documente d in this visit Sepsis Disciplines: Skilled Services 09/30/2021 Active 1 goal linked to scheduled/document ed intervention 1 goal intervention scheduled/documente d in this visit Physician Specific Parameters Disciplines: Skilled Services 09/30/2021 Active 1 goal linked to scheduled/document ed intervention 2 goal interventions scheduled/documente d in this visit Risk for Falls Disciplines: Skilled Services 09/30/2021 Active 1 goal linked to scheduled/document ed intervention 1 goal intervention scheduled/documente d in this visit Pain Disciplines: Skilled Services 09/30/2021 Active 1 goal linked to scheduled/document ed intervention 1 goal intervention scheduled/documente d in this visit Nutrition/Hydra tion Disciplines: Skilled Services 09/30/2021 Active 1 goal linked to scheduled/document ed intervention 1 goal intervention scheduled/documente d in this visit High Risk Medications Disciplines: Skilled Services 09/30/2021 Active 1 goal linked to scheduled/document ed intervention 1 goal intervention scheduled/documente d in this visit SN Cardiac Procedure/Surge ry Disciplines: SN 09/30/2021 Active 1 goal linked to scheduled/document ed intervention 1 goal intervention scheduled/documente d in this visit SN Integumentary/W ounds Disciplines: SN 09/30/2021 Active 1 goal linked to scheduled/document ed intervention 2 goal interventions scheduled/documente d in this visit SN Learning Assessment Disciplines: SN 09/30/2021 Active 1 goal linked to scheduled/document ed intervention 1 goal intervention scheduled/documente d in this visit Goals Goal Associated Problem Outcome Goal Met? Visit Notes Patient/caregiver will demonstrate ability to obtain, store, identify and administer ordered medications, keep accurate medication list in home, and adhere to medication schedule Description: Patient/caregiver will demonstrate ability to obtain, store, identify and administer ordered medications, keep accurate medication list in home, and adhere to medication schedule by 10/09/21. Medication Education No Patient/caregiver will be able to identify and report symptoms of sepsis Description: Patient/caregiver will be able to identify signs/symptoms of sepsis infection and will verbalize actions to take if suspected by 10/23/21. Sepsis No Patient to maintain parameters within physician-specified ranges throughout certification period Physician Specific Parameters No Manage Risk for falls Description: Patient/caregiver will verbalize knowledge of individualized fall prevention strategies by 10/09/21. Risk for Falls No Manage Pain Description: Patient/caregiver will verbalize knowledge and understanding of appropriate techniques to control pain, including pain medication and non-pharmacological techniques. Patient will verbalize or demonstrate an acceptable level of pain as evidenced by a pain score of <5/10 and improvement in ability to perform activities of daily living to be achieved by 10/16/21. Pain No Manage Nutrition/Hydration Description: Patient/caregiver will verbalize/demonstrate knowledge of prescribed diet and/or healthy nutrition to be achieved by 10/23/21. Nutrition/Hydration No Patient/caregiver will teach back high risk medication side effect and precaution education High Risk Medications No Patient will have an uncomplicated recovery post cardiac procedure/surgery Description: Patient/caregiver will demonstrate understanding of aftercare post cardiac procedure/surgery as evidenced by an uncomplicated recovery to be achieved by 10/23/21. SN Cardiac Procedure/Surgery No Patient/Caregiver will have improved healing and be free of signs and symptoms of complications Description: Patient/caregiver will verbalize management strategies to promote wound healing & prevent complications as evidenced by improved healing & no complications by 10/23/21. SN Integumentary/Wounds No Demonstrate understanding of education Description: Patient and/or caregiver will verbalize understanding of educational instruction provided throughout certification period. SN Learning Assessment No Interventions Intervention Associated Problem/Goal Status Variance Visit Notes Medication Education Description: Evaluate/instruct patient/caregiver on obtaining, storing, identifying and administering ordered medications as well as keeping accurate medication list in the home and adhereing to medication schedule Problem:Medication Education Goal:Patient/caregive r will demonstrate ability to obtain, store, identify and administer ordered medications, keep accurate medication list in home, and adhere to medication schedule Completed Patient and Caregiver instructed on importance of keeping accurate medication list in home, adhering to medication schedule, proper storage of medications and Medication, route, dose, frequency, purpose, and side effects of all medications. Risk of Sepsis Description: Patient is at risk for sepsis. Monitor closely for s/s of sepsis. Problem:Sepsis Goal:Patient/caregive r will be able to identify and report symptoms of sepsis Completed Weight Description: Notify Dr. Dominguez's office of weight change of 4 lbs in 24 hours. Problem:Physician Specific Parameters Goal:Patient to maintain parameters within physician-specified ranges throughout certification period Completed SPO2 Description: Notify Dr. Dominguez's office if pulse ox is <92% at rest. Problem:Physician Specific Parameters Goal:Patient to maintain parameters within physician-specified ranges throughout certification period Completed Instruct on individual fall risk factors and strategies to prevent falls and injuries caused by falls. Problem:Risk for Falls Goal:Manage Risk for falls Completed SN: Patient and Caregiver instructed on Eliminating Environmental Hazards: Keep pathways clear and Keep pets out of pathways Managing Impaired Functional Mobility: Use assistive device(s): Walker and Caregiver to provide assist with: Ambulation, Transfers and ADL/IADLs Instruct on pain and instruct on strategies to control pain Problem:Pain Goal:Manage Pain Completed patient and caregiver instructed on techniques to control pain including Pharmacological measures and Non-Pharmacological measures; rest and breathing/relaxation. Define patient s appetite/hydration status and implement strategies to improve compliance with prescribed diet and/or healthy nutrition. Problem:Nutrition/Hyd ration Goal:Manage Nutrition/Hydration Completed instructed patient and caregiver on implementing strategies to comply with healthy nutrition and adequate hydration Opioids- Instruct on high risk medication Problem:High Risk Medications Goal:Patient/caregive r will teach back high risk medication side effect and precaution education Completed patient and caregiver instructed on the following: Possible side effects of opioid medication including sedation, decreased rate of breathing, and constipation. Instructed on reporting over sedation to prescribing physician, practice deep breathing techniques every hour while awake, and prevention of constipation by increasing water and fiber intake, increase activity as tolerated, and use stool softener as prescribed. Only take opioids as prescribed, do not share your medications, and take proper precautions in storing and properly disposing of opioids once no longer needed. Follow providers guidelines for driving and weaning from prescribed opioid. 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 Problem:SN Cardiac Procedure/Surgery Goal:Patient will have an uncomplicated recovery post cardiac procedure/surgery Completed patient and caregiver assessed and instructed on keeping all incisions clean with mild soap and water and leave open to air, allow dermabond to slough off on it's own, signs & symptoms of complications: infection such as fever of 101 or greater, chills, redness and/or drainage of incision site, nausea/vomiting, and/or malaise and cardiac complications such as headache, dizziness, light-headedness, SOB, heart palpitations, chest pain, or chest pressure, activity guidelines: no lifting items >8-10lbs, walking program, energy conservation and breathing exercises, use of incentive spirometer, record daily weights, temperature, and BP and instruct heart health diet. Instruct patient/caregiver healing process and management measures to promote healing and avoid complications Problem:SN Integumentary/Wounds Goal:Patient/Caregive r will have improved healing and be free of signs and symptoms of complications Completed patient and caregiver instructed on the following: healing process, signs and symptoms of infection, importance of good nutrition, smoking cessation and when to report symptoms. Instruct Patient/Caregiver on wound/incision care procedure as ordered by physician Problem:SN Integumentary/Wounds Goal:Patient/Caregive r will have improved healing and be free of signs and symptoms of complications Completed patient and caregiver instructed on wound care as ordered by Physician. Instruct and educate on knowledge deficits Problem:SN Learning Assessment Goal:Demonstrate understanding of education Completed patient and caregiver verbalize and/or demonstrate understanding of nursing education completed today. Education methods include: verbal cues, written instructions and visual cues. Further education required to improve knowledge and compliance with cardiac disease management, fall prevention/home safety strategies, incision/wound care management, medication management, nutrition, pain management and surgical care precautions. documented in this encounter [facility]'s home Plan of care note* Visit Details Visit Type -SN ROUTINE Discipline -Detention Problems Problem Description Start Date Status Goals Interve ntions Medication Education Disciplines: Skilled Services 09/30/2021 Active 1 goal linked to scheduled/document ed intervention 1 goal intervention scheduled/documente d in this visit Sepsis Disciplines: Skilled Services 09/30/2021 Active 1 goal linked to scheduled/document ed intervention 1 goal intervention scheduled/documente d in this visit Physician Specific Parameters Disciplines: Skilled Services 09/30/2021 Active 1 goal linked to scheduled/document ed intervention 2 goal interventions scheduled/documente d in this visit Risk for Falls Disciplines: Skilled Services 09/30/2021 Active 1 goal linked to scheduled/document ed intervention 1 goal intervention scheduled/documente d in this visit Pain Disciplines: Skilled Services 09/30/2021 Active 1 goal linked to scheduled/document ed intervention 1 goal intervention scheduled/documente d in this visit Nutrition/Hydra tion Disciplines: Skilled Services 09/30/2021 Active 1 goal linked to scheduled/document ed intervention 1 goal intervention scheduled/documente d in this visit SN Cardiac Procedure/Surge ry Disciplines: 09/30/2021 Active 1 goal linked to scheduled/document ed intervention 1 goal intervention scheduled/documente d in this visit SN Integumentary/W ounds Disciplines: 09/30/2021 Active 1 goal linked to scheduled/document ed intervention 2 goal interventions scheduled/documente d in this visit SN Learning Assessment Disciplines: 09/30/2021 Active 1 goal linked to scheduled/document ed intervention 1 goal intervention scheduled/documente d in this visit Goals Goal Associated Problem Outcome Goal Met? Visit Notes Patient/caregiver will demonstrate ability to obtain, store, identify and administer ordered medications, keep accurate medication list in home, and adhere to medication schedule Description: Patient/caregiver will demonstrate ability to obtain, store, identify and administer ordered medications, keep accurate medication list in home, and adhere to medication schedule by 10/09/21. Medication Education In Progress No Patient/caregiver will be able to identify and report symptoms of sepsis Description: Patient/caregiver will be able to identify signs/symptoms of sepsis infection and will verbalize actions to take if suspected by 10/23/21. Sepsis In Progress No Patient to maintain parameters within physician-specified ranges throughout certification period Physician Specific Parameters In Progress No Manage Risk for falls Description: Patient/caregiver will verbalize knowledge of individualized fall prevention strategies by 10/09/21. Risk for Falls In Progress No Manage Pain Description: Patient/caregiver will verbalize knowledge and understanding of appropriate techniques to control pain, including pain medication and non-pharmacological techniques. Patient will verbalize or demonstrate an acceptable level of pain as evidenced by a pain score of <5/10 and improvement in ability to perform activities of daily living to be achieved by 10/16/21. Pain In Progress No Manage Nutrition/Hydration Description: Patient/caregiver will verbalize/demonstrate knowledge of prescribed diet and/or healthy nutrition to be achieved by 10/23/21. Nutrition/Hydration In Progress No Patient will have an uncomplicated recovery post cardiac procedure/surgery Description: Patient/caregiver will demonstrate understanding of aftercare post cardiac procedure/surgery as evidenced by an uncomplicated recovery to be achieved by 10/23/21. SN Cardiac Procedure/Surgery In Progress No Patient/Caregiver will have improved healing and be free of signs and symptoms of complications Description: Patient/caregiver will verbalize management strategies to promote wound healing & prevent complications as evidenced by improved healing & no complications by 10/23/21. SN Integumentary/Wounds In Progress No Demonstrate understanding of education Description: Patient and/or caregiver will verbalize understanding of educational instruction provided throughout certification period. SN Learning Assessment In Progress No Interventions Intervention Associated Problem/Goal Status Variance Visit Notes Medication Education Description: Evaluate/instruct patient/caregiver on obtaining, storing, identifying and administering ordered medications as well as keeping accurate medication list in the home and adhereing to medication schedule Problem:Medication Education Goal:Patient/caregiv er will demonstrate ability to obtain, store, identify and administer ordered medications, keep accurate medication list in home, and adhere to medication schedule Completed Patient instructed on adhering to medication schedule. Risk of Sepsis Description: Patient is at risk for sepsis. Monitor closely for s/s of sepsis. Problem:Sepsis Goal:Patient/caregiv er will be able to identify and report symptoms of sepsis Completed Weight Description: Notify Dr. Dominguez's office of weight change of 4 lbs in 24 hours. Problem:Physician Specific Parameters Goal:Patient to maintain parameters within physician-specified ranges throughout certification period Completed SPO2 Description: Notify Dr. Dominguez's office if pulse ox is <92% at rest. Problem:Physician Specific Parameters Goal:Patient to maintain parameters within physician-specified ranges throughout certification period Completed Instruct on individual fall risk factors and strategies to prevent falls and injuries caused by falls. Problem:Risk for Falls Goal:Manage Risk for falls Completed SN: Patient instructed on Managing Impaired Functional Mobility: Use assistive device(s): Walker and Caregiver to provide assist with: Steps Instruct on pain and instruct on strategies to control pain Problem:Pain Goal:Manage Pain Completed patient instructed on techniques to control pain including Pharmacological measures and Non-Pharmacological measures; rest and positioning/elevation. Define patient s appetite/hydration status and implement strategies to improve compliance with prescribed diet and/or healthy nutrition. Problem:Nutrition/Hy dration Goal:Manage Nutrition/Hydration Completed instructed patient on implementing strategies to comply with prescribed diet, healthy nutrition and adequate hydration Assess/instruct aftercare cardiac procedure Description: Patient recently had CABG x 3. Problem:SN Cardiac Procedure/Surgery Goal:Patient will have an uncomplicated recovery post cardiac procedure/surgery Completed patient assessed and reinforced on keeping all incisions clean with mild soap and water and leave open to air, allow dermabond to slough off on it's own, signs & symptoms of complications: infection such as fever of 101 or greater, chills, redness and/or drainage of incision site, nausea/vomiting, and/or malaise and cardiac complications such as headache, dizziness, light-headedness, SOB, heart palpitations, chest pain, or chest pressure, activity guidelines: no lifting items >8-10lbs, walking program, energy conservation and breathing exercises, use of incentive spirometer, record daily weights, temperature, and BP and instruct heart health diet. Instruct patient/caregiver healing process and management measures to promote healing and avoid complications Problem:SN Integumentary/Wounds Goal:Patient/Caregiv er will have improved healing and be free of signs and symptoms of complications Completed patient instructed on the following: healing process, signs and symptoms of infection, importance of good nutrition, smoking cessation and when to report symptoms. Instruct Patient/Caregiver on wound/incision care procedure as ordered by physician Problem:SN Integumentary/Wounds Goal:Patient/Caregiv er will have improved healing and be free of signs and symptoms of complications Completed patient instructed on wound care as ordered by Physician. Instruct and educate on knowledge deficits Problem:SN Learning Assessment Goal:Demonstrate understanding of education Completed patient verbalize and/or demonstrate understanding of nursing education completed today. Education methods include: verbal cues. Further education required to improve knowledge and compliance with cardiac disease management, fall prevention/home safety strategies, gastrointestinal care management, medication management, nutrition, pain management and surgical care precautions. documented in this encounter [facility]'s home Plan of care note* Visit Details Visit Type -SN ROUTINE Discipline -Detention Problems Problem Description Start Date Status Goals Interve ntions Medication Education Disciplines: Skilled Services 09/30/2021 Active 1 goal linked to scheduled/document ed intervention 1 goal intervention scheduled/documente d in this visit Sepsis Disciplines: Skilled Services 09/30/2021 Active 1 goal linked to scheduled/document ed intervention 1 goal intervention scheduled/documente d in this visit Physician Specific Parameters Disciplines: Skilled Services 09/30/2021 Active 1 goal linked to scheduled/document ed intervention 2 goal interventions scheduled/documente d in this visit Risk for Falls Disciplines: Skilled Services 09/30/2021 Active 1 goal linked to scheduled/document ed intervention 1 goal intervention scheduled/documente d in this visit Pain Disciplines: Skilled Services 09/30/2021 Active 1 goal linked to scheduled/document ed intervention 1 goal intervention scheduled/documente d in this visit Nutrition/Hydra tion Disciplines: Skilled Services 09/30/2021 Active 1 goal linked to scheduled/document ed intervention 1 goal intervention scheduled/documente d in this visit SN Cardiac Procedure/Surge ry Disciplines: 09/30/2021 Active 1 goal linked to scheduled/document ed intervention 1 goal intervention scheduled/documente d in this visit SN Integumentary/W ounds Disciplines: SN 09/30/2021 Active 1 goal linked to scheduled/document ed intervention 2 goal interventions scheduled/documente d in this visit SN Learning Assessment Disciplines: 09/30/2021 Active 1 goal linked to scheduled/document ed intervention 1 goal intervention scheduled/documente d in this visit Goals Goal Associated Problem Outcome Goal Met? Visit Notes Patient/caregiver will demonstrate ability to obtain, store, identify and administer ordered medications, keep accurate medication list in home, and adhere to medication schedule Description: Patient/caregiver will demonstrate ability to obtain, store, identify and administer ordered medications, keep accurate medication list in home, and adhere to medication schedule by 10/09/21. Medication Education No Patient/caregiver will be able to identify and report symptoms of sepsis Description: Patient/caregiver will be able to identify signs/symptoms of sepsis infection and will verbalize actions to take if suspected by 10/23/21. Sepsis No Patient to maintain parameters within physician-specified ranges throughout certification period Physician Specific Parameters No Manage Risk for falls Description: Patient/caregiver will verbalize knowledge of individualized fall prevention strategies by 10/09/21. Risk for Falls No Manage Pain Description: Patient/caregiver will verbalize knowledge and understanding of appropriate techniques to control pain, including pain medication and non-pharmacological techniques. Patient will verbalize or demonstrate an acceptable level of pain as evidenced by a pain score of <5/10 and improvement in ability to perform activities of daily living to be achieved by 10/16/21. Pain No Manage Nutrition/Hydration Description: Patient/caregiver will verbalize/demonstrate knowledge of prescribed diet and/or healthy nutrition to be achieved by 10/23/21. Nutrition/Hydration No Patient will have an uncomplicated recovery post cardiac procedure/surgery Description: Patient/caregiver will demonstrate understanding of aftercare post cardiac procedure/surgery as evidenced by an uncomplicated recovery to be achieved by 10/23/21. SN Cardiac Procedure/Surgery No Patient/Caregiver will have improved healing and be free of signs and symptoms of complications Description: Patient/caregiver will verbalize management strategies to promote wound healing & prevent complications as evidenced by improved healing & no complications by 10/23/21. SN Integumentary/Wounds No Demonstrate understanding of education Description: Patient and/or caregiver will verbalize understanding of educational instruction provided throughout certification period. SN Learning Assessment No Interventions Intervention Associated Problem/Goal Status Variance Visit Notes Medication Education Description: Evaluate/instruct patient/caregiver on obtaining, storing, identifying and administering ordered medications as well as keeping accurate medication list in the home and adhereing to medication schedule Problem:Medication Education Goal:Patient/caregiv er will demonstrate ability to obtain, store, identify and administer ordered medications, keep accurate medication list in home, and adhere to medication schedule Completed Patient instructed on adhering to medication schedule. Risk of Sepsis Description: Patient is at risk for sepsis. Monitor closely for s/s of sepsis. Problem:Sepsis Goal:Patient/caregiv er will be able to identify and report symptoms of sepsis Completed Weight Description: Notify Dr. Dominguez's office of weight change of 4 lbs in 24 hours. Problem:Physician Specific Parameters Goal:Patient to maintain parameters within physician-specified ranges throughout certification period Completed SPO2 Description: Notify Dr. Dominguez's office if pulse ox is <92% at rest. Problem:Physician Specific Parameters Goal:Patient to maintain parameters within physician-specified ranges throughout certification period Completed Instruct on individual fall risk factors and strategies to prevent falls and injuries caused by falls. Problem:Risk for Falls Goal:Manage Risk for falls Completed SN: Patient instructed on Eliminating Environmental Hazards: Keep pathways clear Managing Impaired Functional Mobility: Use assistive device(s): Walker Instruct on pain and instruct on strategies to control pain Problem:Pain Goal:Manage Pain Completed patient instructed on techniques to control pain including Pharmacological measures and Non-Pharmacological measures; rest, positioning/elevation, distraction and breathing/relaxation. Define patient s appetite/hydration status and implement strategies to improve compliance with prescribed diet and/or healthy nutrition. 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 Problem:SN Cardiac Procedure/Surgery Goal:Patient will have an uncomplicated recovery post cardiac procedure/surgery Completed patient and caregiver assessed and reinforced on keeping all incisions clean with mild soap and water and leave open to air, allow dermabond to slough off on it's own, signs & symptoms of complications: infection such as fever of 101 or greater, chills, redness and/or drainage of incision site, nausea/vomiting, and/or malaise and cardiac complications such as headache, dizziness, light-headedness, SOB, heart palpitations, chest pain, or chest pressure, activity guidelines: no lifting items >8-10lbs, walking program, energy conservation and breathing exercises, use of incentive spirometer, record daily weights, temperature, and BP and instruct heart health diet. Instruct patient/caregiver healing process and management measures to promote healing and avoid complications Problem:SN Integumentary/Wounds Goal:Patient/Caregiv er will have improved healing and be free of signs and symptoms of complications Completed patient and caregiver instructed on the following: healing process, signs and symptoms of infection, importance of good nutrition, smoking cessation and when to report symptoms. Instruct Patient/Caregiver on wound/incision care procedure as ordered by physician Problem:SN Integumentary/Wounds Goal:Patient/Caregiv er will have improved healing and be free of signs and symptoms of complications Completed patient and caregiver instructed on wound care as ordered by Physician. Instruct and educate on knowledge deficits Problem:SN Learning Assessment Goal:Demonstrate understanding of education Completed patient and caregiver verbalize and/or demonstrate understanding of nursing education completed today. Education methods include: verbal cues. Further education required to improve knowledge and compliance with cardiac disease management, fall prevention/home safety strategies, gastrointestinal care management, incision/wound care management, medication management, nutrition, pain management and surgical care precautions. documented in this encounter [facility] home Plan of care note* Visit Details Visit Type -SN ROUTINE Discipline -Detention Problems Problem Description Start Date Status Goals Interve ntions Medication Education Disciplines: Skilled Services 09/30/2021 Active 1 goal linked to scheduled/document ed intervention 1 goal intervention scheduled/document ed in this visit Sepsis Disciplines: Skilled Services 09/30/2021 Resolved on 10/15/2021 1 goal linked to scheduled/document ed intervention 1 goal intervention scheduled/document ed in this visit Physician Specific Parameters Disciplines: Skilled Services 09/30/2021 Active 1 goal linked to scheduled/document ed intervention 2 goal interventions scheduled/document ed in this visit Risk for Falls Disciplines: Skilled Services 09/30/2021 Active 1 goal linked to scheduled/document ed intervention 1 goal intervention scheduled/document ed in this visit Pain Disciplines: Skilled Services 09/30/2021 Active 1 goal linked to scheduled/document ed intervention 1 goal intervention scheduled/document ed in this visit Nutrition/Hydr ation Disciplines: Skilled Services 09/30/2021 Active 1 goal linked to scheduled/document ed intervention 1 goal intervention scheduled/document ed in this visit High Risk Medications Disciplines: Skilled Services 09/30/2021 Resolved on 10/15/2021 1 goal linked to scheduled/document ed intervention Discharge Disciplines: Skilled Services 09/30/2021 Active 1 goal linked to scheduled/document ed intervention 2 goal interventions scheduled/document ed in this visit Advance Directives Disciplines: Skilled Services 09/30/2021 Resolved on 10/15/2021 1 goal linked to scheduled/document ed intervention SN Cardiac Procedure/Surg shreya Disciplines: SN 09/30/2021 Active 1 goal linked to scheduled/document ed intervention 1 goal intervention scheduled/document ed in this visit SN Integumentary/ Wounds Disciplines: SN 09/30/2021 Active 1 goal linked to scheduled/document ed intervention 2 goal interventions scheduled/document ed in this visit SN Learning Assessment Disciplines: SN 09/30/2021 Active 1 goal linked to scheduled/document ed intervention 1 goal intervention scheduled/document ed in this visit Goals Goal Associated Problem Outcome Goal Met? Visit Notes Patient/caregiver will demonstrate ability to obtain, store, identify and administer ordered medications, keep accurate medication list in home, and adhere to medication schedule Description: Patient/caregiver will demonstrate ability to obtain, store, identify and administer ordered medications, keep accurate medication list in home, and adhere to medication schedule by 10/09/21. Medication Education In Progress No Patient/caregiver will be able to identify and report symptoms of sepsis Description: Patient/caregiver will be able to identify signs/symptoms of sepsis infection and will verbalize actions to take if suspected by 10/23/21. Sepsis Completed Yes Patient to maintain parameters within physician-specified ranges throughout certification period Physician Specific Parameters In Progress No Manage Risk for falls Description: Patient/caregiver will verbalize knowledge of individualized fall prevention strategies by 10/09/21. Risk for Falls In Progress No Manage Pain Description: Patient/caregiver will verbalize knowledge and understanding of appropriate techniques to control pain, including pain medication and non-pharmacological techniques. Patient will verbalize or demonstrate an acceptable level of pain as evidenced by a pain score of <5/10 and improvement in ability to perform activities of daily living to be achieved by 10/16/21. Pain In Progress No Manage Nutrition/Hydration Description: Patient/caregiver will verbalize/demonstrate knowledge of prescribed diet and/or healthy nutrition to be achieved by 10/23/21. Nutrition/Hydration In Progress No Patient/caregiver will teach back high risk medication side effect and precaution education High Risk Medications Completed Yes Manage discharge planning Description: Patient/caregiver will verbalize understanding of ongoing discharge plan provided related to disease management, arrangements for outpatient and/or community services, obtaining medications, supplies, and DME, as needed throughout certification period. Discharge In Progress No Patient/caregiver will make healthcare providers aware of and any changes to Advance Directives throughout certification period Advance Directives Completed Yes Patient will have an uncomplicated recovery post cardiac procedure/surgery Description: Patient/caregiver will demonstrate understanding of aftercare post cardiac procedure/surgery as evidenced by an uncomplicated recovery to be achieved by 10/23/21. SN Cardiac Procedure/Surgery In Progress No Patient/Caregiver will have improved healing and be free of signs and symptoms of complications Description: Patient/caregiver will verbalize management strategies to promote wound healing & prevent complications as evidenced by improved healing & no complications by 10/23/21. SN Integumentary/Wounds In Progress No Demonstrate understanding of education Description: Patient and/or caregiver will verbalize understanding of educational instruction provided throughout certification period. SN Learning Assessment In Progress No Interventions Intervention Associated Problem/Goal Status Variance Visit Notes Medication Education Description: Evaluate/instruct patient/caregiver on obtaining, storing, identifying and administering ordered medications as well as keeping accurate medication list in the home and adhereing to medication schedule Problem:Medication Education Goal:Patient/caregiv er will demonstrate ability to obtain, store, identify and administer ordered medications, keep accurate medication list in home, and adhere to medication schedule Completed Patient instructed on adhering to medication schedule. Risk of Sepsis Description: Patient is at risk for sepsis. Monitor closely for s/s of sepsis. Problem:Sepsis Goal:Patient/caregiv er will be able to identify and report symptoms of sepsis Completed Weight Description: Notify Dr. Dominguez's office of weight change of 4 lbs in 24 hours. Problem:Physician Specific Parameters Goal:Patient to maintain parameters within physician-specified ranges throughout certification period Completed SPO2 Description: Notify Dr. Dominguez's office if pulse ox is <92% at rest. Problem:Physician Specific Parameters Goal:Patient to maintain parameters within physician-specified ranges throughout certification period Completed Instruct on individual fall risk factors and strategies to prevent falls and injuries caused by falls. Problem:Risk for Falls Goal:Manage Risk for falls Completed SN: Patient instructed on Eliminating Environmental Hazards: Keep pathways clear and Keep rooms and walkways well lit Managing Impaired Functional Mobility: Use assistive device(s): Walker when going out Instruct on pain and instruct on strategies to control pain Problem:Pain Goal:Manage Pain Completed patient instructed on techniques to control pain including Non-Pharmacological measures; positioning/elevation. Define patient s appetite/hydration status and implement strategies to improve compliance with prescribed diet and/or healthy nutrition. Problem:Nutrition/Hy dration Goal:Manage Nutrition/Hydration Completed reinforced patient on implementing strategies to comply with prescribed diet, healthy nutrition and adequate hydration Deliver NOMNC Problem:Discharge Goal:Manage discharge planning Completed Delivered NOMNC on 10/15/20 for discharge date of 10/22/21. Instruct on ongoing discharge plan Problem:Discharge Goal:Manage discharge planning Completed Ongoing Discharge plan: Discharge plan discussed with patient including frequency and duration for home SN and plan for transition to: cardiac/pulmonary rehab. 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 Problem:SN Cardiac Procedure/Surgery Goal:Patient will have an uncomplicated recovery post cardiac procedure/surgery Completed patient assessed and reinforced on keeping all incisions clean with mild soap and water and leave open to air, allow dermabond to slough off on it's own, record daily weights, temperature, and BP and instruct heart health diet. Instruct patient/caregiver healing process and management measures to promote healing and avoid complications Problem:SN Integumentary/Wounds Goal:Patient/Caregiv er will have improved healing and be free of signs and symptoms of complications Completed patient instructed on the following: healing process, importance of good nutrition and when to report symptoms. Instruct Patient/Caregiver on wound/incision care procedure as ordered by physician Problem:SN Integumentary/Wounds Goal:Patient/Caregiv er will have improved healing and be free of signs and symptoms of complications Completed patient instructed on wound care as ordered by Physician. Instruct and educate on knowledge deficits Problem:SN Learning Assessment Goal:Demonstrate understanding of education Completed patient verbalize and/or demonstrate understanding of nursing education completed today. Education methods include: verbal cues. Further education required to improve knowledge and compliance with cardiac disease management, fall prevention/home safety strategies, gastrointestinal care management, incision/wound care management, medication management and pain management. documented in this encounter [facility]'s home Plan of care note* Visit Details Visit Type -SN AGENCY DC W V ISIT Discipline -Detention Problems Problem Description Start Date Status Goals Interve ntions Medication Education Disciplines: Skilled Services 09/30/2021 Resolved on 10/22/2021 1 goal linked to scheduled/document ed intervention 1 goal intervention scheduled/document ed in this visit Physician Specific Parameters Disciplines: Skilled Services 09/30/2021 Resolved on 10/22/2021 1 goal linked to scheduled/document ed intervention 2 goal interventions scheduled/document ed in this visit Risk for Falls Disciplines: Skilled Services 09/30/2021 Resolved on 10/22/2021 1 goal linked to scheduled/document ed intervention 1 goal intervention scheduled/document ed in this visit Pain Disciplines: Skilled Services 09/30/2021 Resolved on 10/22/2021 1 goal linked to scheduled/document ed intervention 1 goal intervention scheduled/document ed in this visit Nutrition/Hydr ation Disciplines: Skilled Services 09/30/2021 Resolved on 10/22/2021 1 goal linked to scheduled/document ed intervention 1 goal intervention scheduled/document ed in this visit Discharge Disciplines: Skilled Services 09/30/2021 Resolved on 10/22/2021 1 goal linked to scheduled/document ed intervention 1 goal intervention scheduled/document ed in this visit SN Cardiac Procedure/Surg shreya Disciplines: SN 09/30/2021 Resolved on 10/22/2021 1 goal linked to scheduled/document ed intervention 1 goal intervention scheduled/document ed in this visit SN Integumentary/ Wounds Disciplines: SN 09/30/2021 Resolved on 10/22/2021 1 goal linked to scheduled/document ed intervention 2 goal interventions scheduled/document ed in this visit SN Learning Assessment Disciplines: SN 09/30/2021 Resolved on 10/22/2021 1 goal linked to scheduled/document ed intervention 1 goal intervention scheduled/document ed in this visit Goals Goal Associated Problem Outcome Goal Met? Visit Notes Patient/caregiver will demonstrate ability to obtain, store, identify and administer ordered medications, keep accurate medication list in home, and adhere to medication schedule Description: Patient/caregiver will demonstrate ability to obtain, store, identify and administer ordered medications, keep accurate medication list in home, and adhere to medication schedule by 10/09/21. Medication Education Completed Yes Patient to maintain parameters within physician-specified ranges throughout certification period Physician Specific Parameters Completed Yes Manage Risk for falls Description: Patient/caregiver will verbalize knowledge of individualized fall prevention strategies by 10/09/21. Risk for Falls Completed Yes Manage Pain Description: Patient/caregiver will verbalize knowledge and understanding of appropriate techniques to control pain, including pain medication and non-pharmacological techniques. Patient will verbalize or demonstrate an acceptable level of pain as evidenced by a pain score of <5/10 and improvement in ability to perform activities of daily living to be achieved by 10/16/21. Pain Completed Yes Manage Nutrition/Hydration Description: Patient/caregiver will verbalize/demonstrate knowledge of prescribed diet and/or healthy nutrition to be achieved by 10/23/21. Nutrition/Hydration Completed Yes Manage discharge planning Description: Patient/caregiver will verbalize understanding of ongoing discharge plan provided related to disease management, arrangements for outpatient and/or community services, obtaining medications, supplies, and DME, as needed throughout certification period. Discharge Completed Yes Patient will have an uncomplicated recovery post cardiac procedure/surgery Description: Patient/caregiver will demonstrate understanding of aftercare post cardiac procedure/surgery as evidenced by an uncomplicated recovery to be achieved by 10/23/21. SN Cardiac Procedure/Surgery Completed Yes Patient/Caregiver will have improved healing and be free of signs and symptoms of complications Description: Patient/caregiver will verbalize management strategies to promote wound healing & prevent complications as evidenced by improved healing & no complications by 10/23/21. SN Integumentary/Wounds Completed Yes Demonstrate understanding of education Description: Patient and/or caregiver will verbalize understanding of educational instruction provided throughout certification period. SN Learning Assessment Completed Yes Interventions Intervention Associated Problem/Goal Status Variance Visit Notes Medication Education Description: Evaluate/instruct patient/caregiver on obtaining, storing, identifying and administering ordered medications as well as keeping accurate medication list in the home and adhereing to medication schedule Problem:Medication Education Goal:Patient/caregiv er will demonstrate ability to obtain, store, identify and administer ordered medications, keep accurate medication list in home, and adhere to medication schedule Completed Patient instructed on adhering to medication schedule. Weight Description: Notify Dr. Dominguez's office of weight change of 4 lbs in 24 hours. Problem:Physician Specific Parameters Goal:Patient to maintain parameters within physician-specified ranges throughout certification period Completed SPO2 Description: Notify Dr. Dominguez's office if pulse ox is <92% at rest. Problem:Physician Specific Parameters Goal:Patient to maintain parameters within physician-specified ranges throughout certification period Completed Instruct on individual fall risk factors and strategies to prevent falls and injuries caused by falls. Problem:Risk for Falls Goal:Manage Risk for falls Completed SN: Patient instructed on Eliminating Environmental Hazards: Keep pathways clear and Keep rooms and walkways well lit Instruct on pain and instruct on strategies to control pain Problem:Pain Goal:Manage Pain Completed patient instructed on techniques to control pain including Non-Pharmacological measures; positioning/elevation and mobility/therapeutic exercise. Define patient s appetite/hydration status and implement strategies to improve compliance with prescribed diet and/or healthy nutrition. 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 Problem:SN Cardiac Procedure/Surgery Goal:Patient will have an uncomplicated recovery post cardiac procedure/surgery Completed patient assessed and reinforced on keeping all incisions clean with mild soap and water and leave open to air, allow dermabond to slough off on it's own, activity guidelines: no lifting items >8-10lbs and walking program, record daily weights, temperature, and BP and instruct heart health diet. Instruct patient/caregiver healing process and management measures to promote healing and avoid complications Problem:SN Integumentary/Wounds Goal:Patient/Caregiv er will have improved healing and be free of signs and symptoms of complications Completed patient instructed on the following: importance of good nutrition and when to report symptoms. Instruct Patient/Caregiver on wound/incision care procedure as ordered by physician Problem:SN Integumentary/Wounds Goal:Patient/Caregiv er will have improved healing and be free of signs and symptoms of complications Completed patient instructed on wound care as ordered by Physician. Instruct and educate on knowledge deficits Problem:SN Learning Assessment Goal:Demonstrate understanding of education Completed patient verbalize and/or demonstrate understanding of nursing education completed today. Education methods include: verbal cues. Further education required to improve knowledge and compliance with cardiac disease management, fall prevention/home safety strategies, gastrointestinal care management, medication management, nutrition, pain management and surgical care precautions. [facility] available for this section [facility] Reason for referral (narrative)No reason for referral information availableD[facility] Work Phone: Surgery Outpatient Note* Event Display: General Surgery Office Note [facility] Summary Purpose Family History No Family History Records Found Relationship Condition Age at Onset Recorded Date/T matilde mother Myocardial infarction Unknown brother Myocardial infarction Unknown Relationship Condition Age at Onset Recorded Date/T matilde mother Myocardial infarction Unknown Malignant neoplasm Unknown Diabetes mellitus Unknown Chronic obstructive pulmonary disease Unk nown brother Myocardial infarction Unknown sister Malignant neoplasm Unknown Cardiac disease Unknown father Malignant neoplasm of lung Unknown Advance Directives No Advanced Directives Records Found Advance Directive Response Recorded Date/ Time Advance Directives No May 8:05am Living Will No July 04, 2021 6:57pm Power of Lifts And Cranes Inspector No July 04 6:57pm Documents on File Type Date Recorded Patient 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 Scourer Expl anation Advance Directive(s) 09/21/2021 6:00 AM Latest Code Status on File Code Status Date Activated Date Inactivated Comments Full Code 10/01/2021 8:42 AM Documents on File Type Date Recorded Patient Heel Scourer Expl anation Advance Directive(s) 09/21/2021 6:00 AM Latest Code Status on File Code Status Date Activated Date Inactivated Comments Full Code 10/01/2021 8:42 AM Advance Directive Response Recorded Date/ Time Advance Directives No May 8:05am Living Will No October 16, 2021 8:54pm Power of Lifts And Cranes Inspector No October 16 8:54pm Advance Directive Response Recorded Date/ Time Name of Medical Power of Lifts And Cranes Inspector MALIK BRENNAN October 18, 2021 12:50pm Advance Directives No May 8:05am Living Will No October 18, 2021 12:50pm Power of Lifts And Cranes Inspector Yes October 18 12:50pm Advance Directive Response Recorded Date/ Time Name of Medical Power of Lifts And Cranes Inspector MALIK BRENNAN October 18, 2021 12:50pm Name of Medical Power of Lifts And Cranes Inspector malikivet brennan October 29, 2021 8:33pm Advance Directives No May 8:05am Living Will No October 29, 2021 8:33pm Power of Lifts And Cranes Inspector Yes October 29 8:33pm Advance Directive Response Recorded Date/ Time Name of Medical Power of Lifts And Cranes Inspector MALIKIvet BRENNAN October 18, 2021 12:50pm Name of Medical Power of Lifts And Cranes Inspector malik brennan October 29, 2021 8:33pm Advance Directives on File No Davin [email or web address] 2021 2:36pm Advance Directives No May 8:05am Living Will No December 11 2:36pm Power of Lifts And Cranes Inspector No December 11, 2021 2:36pm Advance Directive Response Recorded Date/ Time Name of Medical Power of Lifts And Cranes Inspector MALIK BRENNAN October 18, 2021 12:50pm Name of Medical Power of Lifts And Cranes Inspector malik brennan October 29, 2021 8:33pm Advance Directives on File No Davin [email or web address] 2021 2:36pm Name of Medical Power of Lifts And Cranes Inspector MALIK BRENNAN- DAUGHTER February 05, 2022 12:07pm Advance Directives No May 8:05am Living Will Yes February 05 12:07pm Power of Lifts And Cranes Inspector Yes February 05, 2022 12:07pm Advance Directive Response Recorded Date/ Time Advance Directives on File No Davin [email or web address] 2021 1:36pm Name of Medical Power of Lifts And Cranes Inspector MALIK BRENNAN- DAUGHTER February 05, 2022 11:07am Advance Directives No May 7:05am Living Will Yes February 05 11:07am Power of Lifts And Cranes Inspector Yes February 05, 2022 11:07am Advance Directive Response Recorded Date/ Time Advance Directives on File No Davin [facility] 2021 1:36pm Name of Medical Power of Lifts And Cranes Inspector MALIK BRENNAN- DAUGHTER February 05, 2022 11:07am Advance Directives No May 7:05am Living Will No March 22, 022 11:32am Power of Lifts And Cranes Inspector No March 22, 2022 11:32am Advance Directive Response Recorded Date/ Time Advance Directives on File No [email or web address] [email or web address] 1:36pm Name of Medical Power of Lifts And Cranes Inspector MALIK BRENNAN- DAUGHTER February 05, 2022 11:07am Advance Directives No May 7:05am Living Will No April 10 7:08pm Power of Lifts And Cranes Inspector No April 10 023 7:08pm Advance Directive Response Recorded Date/ Time Name of Medical Power of Lifts And Cranes Inspector MALIK BRENNAN- DAUGHTER February 05, 2022 11:07am Advance Directives No May 7:05am Living Will No April 11 3:38pm Power of Lifts And Cranes Inspector No April 11 023 3:38pm Advance Directive Response Recorded Date/ Time Advance Directives No May 8:05am Living Will No September 05, 2022 7 :27pm Power of Lifts And Cranes Inspector No September 05, 2022 7:27pm Advance Directive Response Recorded Date/ Time Name of Medical Power of Lifts And Cranes Inspector Kaykay Kurtz, escrow manager of [facility] September 10, 2022 1:18am Advance Directives No May 8:05am Living Will No September 10, 2022 1 :18am Power of Lifts And Cranes Inspector Yes September 10, 2022 1:18am Advance Directive Response Recorded Date/ Time Name of Medical Power of Lifts And Cranes Inspector Kaykay Kurtz, escrow manager of [facility] September 10, 2022 1:18am Name of Medical Power of Lifts And Cranes Inspector Malik Brennan October 20, 2022 8:19pm Advance Directives No May 8:05am Living Will Yes October 20, 2022 8:19pm Power of Lifts And Cranes Inspector Yes October 20 8:19pm Advance Directive Response Recorded Date/ Time Name of Medical Power of Lifts And Cranes Inspector Kaykay Kurtz, escrow manager of [facility] September 10, 2022 1:18am Name of Medical Power of Lifts And Cranes Inspector Malik Brennan October 20, 2022 8:19pm Name of Medical Power of Lifts And Cranes Inspector Marisela Grovea Mika November 10, 2022 3:39pm Advance Directives No May 8:05am Living Will Yes November 10, 2022 3:39pm Power of Lifts And Cranes Inspector Yes November 10 3:39pm Advance Directive Response Recorded Date/ Time Name of Medical Power of Lifts And Cranes Inspector Kaykay Kurtz, escrow manager of [facility] September 10, 2022 1:18am Name of Medical Power of Lifts And Cranes Inspector Malik Mika October 20, 2022 8:19pm Name of Medical Power of Lifts And Cranes Inspector Kaykay GannalethaAlexaMalik Mika November 10, 2022 3:39pm Name of Medical Power of Lifts And Cranes Inspector MALIK BRENNAN December 22, 2022 1:25pm Advance Directives No May 8:05am Living Will Yes December 22, 2022 1:25pm Power of Lifts And Cranes Inspector Yes December 1:25pm Advance Directive Response Recorded Date/ Time Name of Medical Power of Lifts And Cranes Inspector Malik Mika October 20, 2022 7:19pm Name of Medical Power of Lifts And Cranes Inspector Kaykay GannalethaAlexaMalik Mika November 10, 2022 2:39pm Name of Medical Power of Lifts And Cranes Inspector MALIK MIKA December 22, 2022 12:25pm Advance Directives No May 7:05am Living Will Yes December 22, 2022 12:25pm Power of Lifts And Cranes Inspector Yes December 12:25pm Advance Directive Response Recorded Date/ Time Name of Medical Power of Lifts And Cranes Inspector Kaykay GannalethaAlexaMalik Mika November 10, 2022 2:39pm Name of Medical Power of Lifts And Cranes Inspector MALIK MIKA December 22, 2022 12:25pm Advance Directives No May 7:05am Living Will No February 27 023 2:08pm Power of Lifts And Cranes Inspector No February 27, 2023 2:08pm Advance Directive Response Recorded Date/ Time Advance Directives No May 7:05am Living Will No May 23, 024 5:07pm Power of Lifts And Cranes Inspector No May 23, 2023 5:07pm Advance Directive Response Recorded Date/ Time Advance Directives No May 8:05am Chief Complaint and Reason for Visit Chief Complaint 6 MO F/U 2 M FU COUGH, SOB, WEAKNESS HEART DESEASE HEART DESEASE 6 wk FU 2 M FU DIZZY FALL, BACK PAIN Reason for Visit Coronary artery dise ase with angina pectoris Atrial septal aneurysm Hyperlipidemia Seizure Cerebrovascular disease Epilepsy Essential tremor Chest pain Coronary artery disease with angina pectoris Hyperlipidemia Cerebrovascular disease Epilepsy Essential tremor Chief Complaint DIZZY DIZZY FALL, BACK PAIN 2 M FU 2 M FU CABLE REELER. 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 EST CARE - NEEDS NPP 1 M FU UPPER EXTREMITY INJURY left arm dvt Reason for Visit Cerebrovascular dise ase Epilepsy Essential tremor Chest pain Coronary artery disease with angina pectoris Hyperlipidemia Coronary artery disease with angina pectoris Essential tremor Low back pain CVA (cerebral vascular accident) Hyperlipidemia Nicotine dependence Encounter to establish care Cerebrovascular disease Essential tremor 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 CVA (cerebral vascular accident) Chief Complaint DIZZY DIZZY FALL, BACK PAIN 2 M FU 2 M FU CABLE REELER. EST CARE - NEEDS NPP 1 M FU UPPER EXTREMITY INJURY left arm dvt HOSPITAL FU Reason for Visit Cerebrovascular dise ase Epilepsy Essential tremor Chest pain Coronary artery disease with angina pectoris Hyperlipidemia Coronary artery disease with angina pectoris Essential tremor Low back pain CVA (cerebral vascular accident) Hyperlipidemia Nicotine dependence Encounter to establish care Cerebrovascular disease Essential tremor 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 CVA (cerebral vascular accident) Arm pain, left History of coronary artery disease Musculoskeletal arm pain Status post coronary artery bypass graft Nicotine dependence Chief Complaint 2 M FU 2 M FU CABLE REELER. EST CARE - NEEDS NPP 1 M FU UPPER EXTREMITY INJURY left arm dvt HOSPITAL FU CHEST PAIN 3 M FU CHEST PAIN Reason for Visit Cerebrovascular dise ase Epilepsy Essential tremor Chest pain Coronary artery disease with angina pectoris Hyperlipidemia Coronary artery disease with angina pectoris Essential tremor Low back pain CVA (cerebral vascular accident) Hyperlipidemia Nicotine dependence Encounter to establish care Cerebrovascular disease Essential tremor 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 CVA (cerebral vascular accident) Status post coronary artery bypass graft Nicotine dependence Postoperative atrial fibrillation 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 Chief Complaint CABLE REELER. EST CARE - NEEDS NPP 1 M FU UPPER EXTREMITY INJURY left arm dvt HOSPITAL FU CHEST PAIN 3 M FU CHEST PAIN S/P CABG 09/21/2021 4 M FU EORDERS S/P CABG Reason for Visit Coronary artery dise ase with angina pectoris Low back pain CVA (cerebral vascular accident) Essential tremor Hyperlipidemia Nicotine dependence Encounter to establish care 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 CVA (cerebral vascular accident) Essential tremor Cerebrovascular disease Status post coronary artery bypass graft Nicotine dependence Postoperative atrial fibrillation 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 Anemia Epilepsy Essential tremor Cerebrovascular disease Chief Complaint CABLE REELER. EST CARE - NEEDS NPP 1 M FU UPPER EXTREMITY INJURY left arm dvt HOSPITAL FU CHEST PAIN 3 M FU CHEST PAIN S/P CABG 09/21/2021 4 M FU EORDERS FU, NS Last Appt S/P CABG Reason for Visit Coronary artery dise ase with angina pectoris Low back pain CVA (cerebral vascular accident) Essential tremor Hyperlipidemia Nicotine dependence Encounter to establish care 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 CVA (cerebral vascular accident) Essential tremor Cerebrovascular disease Status post coronary artery bypass graft Nicotine dependence Postoperative atrial fibrillation 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 Anemia Epilepsy Essential tremor Cerebrovascular disease Chief Complaint CABLE REELER. EST CARE - NEEDS NPP 1 M FU UPPER EXTREMITY INJURY left arm dvt HOSPITAL FU CHEST PAIN 3 M FU CHEST PAIN S/P CABG 09/21/2021 4 M FU EORDERS FU, NS Last Appt S/P CABG Reason for Visit Coronary artery dise ase with angina pectoris Low back pain CVA (cerebral vascular accident) Essential tremor Hyperlipidemia Nicotine dependence Encounter to establish care 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 CVA (cerebral vascular accident) Essential tremor Cerebrovascular disease Status post coronary artery bypass graft Nicotine dependence Postoperative atrial fibrillation 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 Anemia Epilepsy Essential tremor Cerebrovascular disease Chest wall pain Postoperative abdominal hernia Upper abdominal pain Chief Complaint 1 M FU UPPER EXTREMITY INJURY left arm dvt HOSPITAL FU CHEST PAIN 3 M FU CHEST PAIN S/P CABG 09/21/2021 4 M FU EORDERS FU, NS Last Appt S/P CABG Per PFM, CP in [facility] S/P CABG cp in cardiac rehab INT LABS Reason for Visit 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 CVA (cerebral vascular accident) Essential tremor Cerebrovascular disease Status post coronary artery bypass graft Nicotine dependence Postoperative atrial fibrillation 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 Anemia Epilepsy Essential tremor Cerebrovascular disease Chest wall pain Postoperative abdominal hernia Upper abdominal pain Postoperative atrial fibrillation 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 Hyperlipidemia Chest pain in adult History of coronary artery bypass surgery Postoperative atrial fibrillation Syncope and collapse 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 Epilepsy Essential tremor Hyperlipidemia Chief Complaint 1 M FU UPPER EXTREMITY INJURY left arm dvt HOSPITAL FU CHEST PAIN 3 M FU CHEST PAIN S/P CABG 09/21/2021 4 M FU EORDERS FU, NS Last Appt S/P CABG Per PFM, CP in [facility] S/P CABG cp in cardiac rehab INT LABS S/P CABG wound to face Reason for Visit 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 CVA (cerebral vascular accident) Essential tremor Cerebrovascular disease Status post coronary artery bypass graft Nicotine dependence Postoperative atrial fibrillation 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 Anemia Epilepsy Essential tremor Cerebrovascular disease Chest wall pain Postoperative abdominal hernia Upper abdominal pain Postoperative atrial fibrillation 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 Hyperlipidemia Chest pain in adult History of coronary artery bypass surgery Postoperative atrial fibrillation Syncope and collapse 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 Epilepsy Essential tremor Hyperlipidemia Chief Complaint 3 M FU CHEST PAIN S/P CABG 09/21/2021 4 M FU EORDERS FU, NS Last Appt S/P CABG Per PFM, CP in [facility] S/P CABG cp in cardiac rehab INT LABS S/P CABG wound to face 3 M FU Reason for Visit Postoperative atrial fibrillation 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 Anemia Epilepsy Essential tremor Cerebrovascular disease Chest wall pain Postoperative abdominal hernia Upper abdominal pain Postoperative atrial fibrillation 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 Hyperlipidemia Chest pain in adult History of coronary artery bypass surgery Postoperative atrial fibrillation Syncope and collapse 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 Epilepsy Essential tremor Hyperlipidemia History of coronary artery bypass surgery Postoperative atrial fibrillation Syncope and collapse 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 Epilepsy Hyperlipidemia Chief Complaint 3 M FU CHEST PAIN S/P CABG 09/21/2021 4 M FU EORDERS FU, NS Last Appt S/P CABG Per PFM, CP in [facility] S/P CABG cp in cardiac rehab INT LABS S/P CABG wound to face 3 M FU colds Reason for Visit Postoperative atrial fibrillation 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 Anemia Epilepsy Essential tremor Cerebrovascular disease Chest wall pain Postoperative abdominal hernia Upper abdominal pain Postoperative atrial fibrillation 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 Hyperlipidemia Chest pain in adult History of coronary artery bypass surgery Postoperative atrial fibrillation Syncope and collapse 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 Epilepsy Essential tremor Hyperlipidemia History of coronary artery bypass surgery Postoperative atrial fibrillation Syncope and collapse 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 Epilepsy Hyperlipidemia Chief Complaint S/P CABG 09/21/2021 4 M FU EORDERS FU, NS Last Appt S/P CABG Per PFM, CP in [facility] S/P CABG cp in cardiac rehab INT LABS S/P CABG wound to face 3 M FU colds POSSIBLE ABDOMINAL WALL HERNIA ABD PAIN Reason for Visit Anemia Epilepsy Essential tremor Cerebrovascular disease Chest wall pain Postoperative abdominal hernia Upper abdominal pain Postoperative atrial fibrillation 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 Hyperlipidemia Chest pain in adult History of coronary artery bypass surgery Postoperative atrial fibrillation Syncope and collapse 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 Epilepsy Essential tremor Hyperlipidemia History of coronary artery bypass surgery Postoperative atrial fibrillation Syncope and collapse 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 Epilepsy Hyperlipidemia Postoperative abdominal hernia Weight loss Nicotine dependence Chief Complaint 4 M FU EORDERS FU, NS Last Appt S/P CABG Per PFM, CP in [facility] S/P CABG cp in cardiac rehab INT LABS S/P CABG wound to face 3 M FU colds POSSIBLE ABDOMINAL WALL HERNIA ABD PAIN SEIZURE Reason for Visit Anemia Epilepsy Essential tremor Cerebrovascular disease Chest wall pain Postoperative abdominal hernia Upper abdominal pain Postoperative atrial fibrillation 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 Hyperlipidemia Chest pain in adult History of coronary artery bypass surgery Postoperative atrial fibrillation Syncope and collapse 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 Epilepsy Essential tremor Hyperlipidemia History of coronary artery bypass surgery Postoperative atrial fibrillation Syncope and collapse 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 Epilepsy Hyperlipidemia Postoperative abdominal hernia Weight loss Nicotine dependence Chief Complaint 4 M FU EORDERS FU, NS Last Appt S/P CABG Per PFM, CP in [facility] S/P CABG cp in cardiac rehab INT LABS S/P CABG wound to face 3 M FU colds POSSIBLE ABDOMINAL WALL HERNIA ABD PAIN SEIZURE [facility] ER FU Reason for Visit Anemia Epilepsy Essential tremor Cerebrovascular disease Chest wall pain Postoperative abdominal hernia Upper abdominal pain Postoperative atrial fibrillation 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 Hyperlipidemia Chest pain in adult History of coronary artery bypass surgery Postoperative atrial fibrillation Syncope and collapse 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 Epilepsy Essential tremor Hyperlipidemia History of coronary artery bypass surgery Postoperative atrial fibrillation Syncope and collapse 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 Epilepsy Hyperlipidemia Postoperative abdominal hernia Weight loss Nicotine dependence History of coronary artery bypass surgery History of stroke Postoperative abdominal hernia Recurrent seizures Upper abdominal pain 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 Essential tremor Hyperlipidemia Nicotine dependence Chief Complaint 4 month f/u 3 M FU, NS last appt 04 trauma Reason for Visit Cervical spinal sten osis Epilepsy Essential tremor Cerebrovascular disease Coronary artery disease with angina pectoris History of coronary artery bypass surgery 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 CVA (cerebral vascular accident) Essential tremor Hyperlipidemia Nicotine dependence Stented coronary artery Chief Complaint 3 M FU, NS last appt 04 trauma CONSULT-ER FOLLOW UP 7 MO F/U FOLLOW UP-LACERATION ON HEAD 4 M FU dizziness dizziness SOLITARY PULMONARY NODULE Reason for Visit Coronary artery dise ase with angina pectoris History of coronary artery bypass surgery 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 CVA (cerebral vascular accident) Essential tremor Hyperlipidemia Nicotine dependence Stented coronary artery Scalp pain Scalp wound Nicotine dependence History of coronary artery bypass surgery Postoperative atrial fibrillation Syncope and collapse 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 Epilepsy Hyperlipidemia Scalp pain Scalp wound Nicotine dependence Cervical spinal stenosis Epilepsy Essential tremor Cerebrovascular disease Dizziness Scalp wound Vertigo Chief Complaint 3 M FU, NS last appt 04 trauma CONSULT-ER FOLLOW UP 7 MO F/U FOLLOW UP-LACERATION ON HEAD 4 M FU dizziness dizziness SOLITARY PULMONARY NODULE Seizure Reason for Visit Coronary artery dise ase with angina pectoris History of coronary artery bypass surgery 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 CVA (cerebral vascular accident) Essential tremor Hyperlipidemia Nicotine dependence Stented coronary artery Scalp pain Scalp wound Nicotine dependence History of coronary artery bypass surgery Postoperative atrial fibrillation Syncope and collapse 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 Epilepsy Hyperlipidemia Scalp pain Scalp wound Nicotine dependence Cervical spinal stenosis Epilepsy Essential tremor Cerebrovascular disease Dizziness Scalp wound Vertigo Chief Complaint 3 M FU, NS last appt 07/07 trauma CONSULT-ER FOLLOW UP 7 MO F/U FOLLOW UP-LACERATION ON HEAD 4 M FU dizziness dizziness SOLITARY PULMONARY NODULE Seizure SEIZURE SEIZURE Reason for Visit Coronary artery dise ase with angina pectoris History of coronary artery bypass surgery 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 CVA (cerebral vascular accident) Essential tremor Hyperlipidemia Nicotine dependence Stented coronary artery Scalp pain Scalp wound Nicotine dependence History of coronary artery bypass surgery Postoperative atrial fibrillation Syncope and collapse 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 Epilepsy Hyperlipidemia Scalp pain Scalp wound Nicotine dependence Cervical spinal stenosis Epilepsy Essential tremor Cerebrovascular disease Dizziness Scalp wound Vertigo Acute encephalopathy History of coronary artery bypass surgery Seizures Epilepsy Chief Complaint 3 M FU, NS last appt 04 trauma CONSULT-ER FOLLOW UP 7 MO F/U FOLLOW UP-LACERATION ON HEAD 4 M FU dizziness dizziness SOLITARY PULMONARY NODULE Seizure SEIZURE SEIZURE DISORDER SEIZURE DISORDER Reason for Visit Coronary artery dise ase with angina pectoris History of coronary artery bypass surgery 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 CVA (cerebral vascular accident) Essential tremor Hyperlipidemia Nicotine dependence Stented coronary artery Scalp pain Scalp wound Nicotine dependence History of coronary artery bypass surgery Postoperative atrial fibrillation Syncope and collapse 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 Epilepsy Hyperlipidemia Scalp pain Scalp wound Nicotine dependence Cervical spinal stenosis Epilepsy Essential tremor Cerebrovascular disease Dizziness Scalp wound Vertigo Acute encephalopathy History of coronary artery bypass surgery Pulmonary nodule Seizures Epilepsy Stented coronary artery Chief Complaint 3 M FU, NS last appt 04 trauma CONSULT-ER FOLLOW UP 7 MO F/U FOLLOW UP-LACERATION ON HEAD 4 M FU dizziness dizziness SOLITARY PULMONARY NODULE Seizure SEIZURE SEIZURE DISORDER SEIZURE DISORDER seizure Reason for Visit Coronary artery dise ase with angina pectoris History of coronary artery bypass surgery 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 CVA (cerebral vascular accident) Essential tremor Hyperlipidemia Nicotine dependence Stented coronary artery Scalp pain Scalp wound Nicotine dependence History of coronary artery bypass surgery Postoperative atrial fibrillation Syncope and collapse 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 Epilepsy Hyperlipidemia Scalp pain Scalp wound Nicotine dependence Cervical spinal stenosis Epilepsy Essential tremor Cerebrovascular disease Dizziness Scalp wound Vertigo History of coronary artery bypass surgery Pulmonary nodule Seizures Epilepsy Stented coronary artery Acute encephalopathy Chief Complaint trauma CONSULT-ER FOLLOW UP 7 MO F/U FOLLOW UP-LACERATION ON HEAD 4 M FU dizziness dizziness SOLITARY PULMONARY NODULE Seizure SEIZURE SEIZURE DISORDER SEIZURE DISORDER seizure [facility] FU Solitary lung nodule ams Reason for Visit Scalp pain Scalp wound Nicotine dependence History of coronary artery bypass surgery Postoperative atrial fibrillation Syncope and collapse 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 Epilepsy Hyperlipidemia Scalp pain Scalp wound Nicotine dependence Cervical spinal stenosis Epilepsy Essential tremor Cerebrovascular disease Dizziness Scalp wound Vertigo History of coronary artery bypass surgery Pulmonary nodule Seizures Epilepsy Stented coronary artery Acute encephalopathy Abnormal PET of right lung Nicotine dependence, cigarettes, uncomplicated Pulmonary nodule Chief Complaint trauma CONSULT-ER FOLLOW UP 7 MO F/U FOLLOW UP-LACERATION ON HEAD 4 M FU dizziness dizziness SOLITARY PULMONARY NODULE Seizure SEIZURE SEIZURE DISORDER SEIZURE DISORDER seizure [facility] FU Solitary lung nodule ams Reason for Visit Scalp pain Scalp wound Nicotine dependence History of coronary artery bypass surgery Postoperative atrial fibrillation Syncope and collapse 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 Epilepsy Hyperlipidemia Scalp pain Scalp wound Nicotine dependence Cervical spinal stenosis Epilepsy Essential tremor Cerebrovascular disease Dizziness Scalp wound Vertigo History of coronary artery bypass surgery Pulmonary nodule Seizures Epilepsy Stented coronary artery Acute encephalopathy Abnormal PET of right lung Nicotine dependence, cigarettes, uncomplicated Pulmonary nodule Abnormal PET of right lung Chief Complaint Seizure SEIZURE SEIZURE DISORDER SEIZURE DISORDER seizure [facility] FU Solitary lung nodule ams Test Results APRTIAL SYMPTOMATIC EPILEPSY Other nonspecific abnormal finding of lung field Reason for Visit History of coronary artery bypass surgery Pulmonary nodule Seizures Epilepsy Stented coronary artery Acute encephalopathy Abnormal PET of right lung Pulmonary nodule Nicotine dependence, cigarettes, uncomplicated Abnormal PET of right lung Abnormal PET of right lung Nicotine dependence, cigarettes, uncomplicated Chief Complaint SEIZURE SEIZURE DISORDER SEIZURE DISORDER seizure [facility] FU Solitary lung nodule ams Test Results APRTIAL SYMPTOMATIC EPILEPSY Other nonspecific abnormal finding of lung field SEIZURE OR SYNCOPE Reason for Visit History of coronary artery bypass surgery Pulmonary nodule Seizures Epilepsy Stented coronary artery Acute encephalopathy Abnormal PET of right lung Pulmonary nodule Nicotine dependence, cigarettes, uncomplicated Abnormal PET of right lung Abnormal PET of right lung Nicotine dependence, cigarettes, uncomplicated Chief Complaint Other nonspecific ab normal finding of lung field SEIZURE OR SYNCOPE 6 wk FU chest pain Reason for Visit Nicotine dependence, cigarettes, uncomplicated Chief Complaint Admit Date 3 MO - LABS July 10, 2024 7:24 am CA July 10, 2024 7:30 am Discuss PFT results July 17, 2024 2:3 2pm 6 M FU October 12, 2024 2:39 pm Reason for Visit Admit Date Small lymphocytic lymphoma July 10 7:24am Solitary lung nodule July 17, 2024 2: 32pm COPD (chronic obstructive pulmonary dise ase) July 17, 2024 2:32pm Nicotine dependence, cigarettes, uncompl icated July 17, 2024 2:32pm Coronary artery disease with angina pect susanne October 12, 2024 2:39pm Postoperative atrial fibrillation October 022024 2:39pm Atherosclerotic heart diseas e of [place] coronary artery without angina pectoris October 12, 2024 2:39pm Atrial septal aneurysm October 12, 2024 2 :39pm Hyperlipidemia October 12, 2024 2:39 pm Nicotine dependence October 12, 2024 2:39 pm Chief Complaint Admit Date 3 MO - LABS July 10, 2024 7:24 am Discuss PFT results July 17, 2024 2:3 2pm 6 M FU October 12, 2024 2:39 pm 3 MO - LABS October 18, 2024 12:1 0pm CA October 18, 2024 12:4 5pm Reason for Visit Admit Date Small lymphocytic lymphoma July 10 7:24am Solitary lung nodule July 17, 2024 2: 32pm COPD (chronic obstructive pulmonary dise ase) July 17, 2024 2:32pm Nicotine dependence, cigarettes, uncompl icated July 17, 2024 2:32pm Atherosclerotic heart diseas e of [place] coronary artery without angina pectoris October 12, 2024 2:39pm Hyperlipidemia October 12, 2024 2:39 pm Nicotine dependence October 12, 2024 2:39 pm Postoperative atrial fibrillation October 022024 2:39pm Small lymphocytic lymphoma October 18 12:10pm Reason for Referral Specialty Diagnoses / Procedures Referred By Contac t Referred To Contact CT IMAGING Diagnoses 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) Preoperative testing Disorder of arteries and arterioles (HCC) Procedures CTA CHEST (GATED) WO/W IVCON CT ANGIOGRAPHY CHEST W/CONTRAST/NONCONTRAST Liset Ocampo, CONTESTANT COORDINATOR.BULL BUCKER 1 [employer] [place] [address] Ct Imaging Referral ID Status Reason Start Date Expiration Date Visits Requested Visits Authorized [id number] Additional Clinical Info Needed Auto-Generat ed Referral 07/22/2021 08/21/2022 1 1 Specialty Diagnoses / Procedures Referred By Contac t Referred To Contact Urology Diagnoses Hemoglobinuria Procedures CONSULT TO UROLOGY OFFICE/OUTPATIENT [facility] 60-74 MINUTES Linda Winkler, CONTESTANT COORDINATOR.BULL BUCKER [address] [place] [employer] [address] [place] [address] Referral ID Status Reason Start Date Expiration Date Visits Requested Visits Authorized [id number] Authorized PCP Requested Referral 09/14/2021 09/14/2022 1 1 Additional Source Comments (unrecognized sect ion and content) No Status Records FoundNo Status Records FoundNo Status Records FoundNo Status Records FoundNo Status Records FoundNo Status Records FoundNo Status Records FoundNo Status Records FoundNo Status Records FoundNo Status Records FoundNo Status Records FoundNo Status Records FoundNo Status Records Found INFORMATION SOURCE (unrecogn ized section and content) DATE CREATED AUTHOR 09/22/2017 [facility] DATE CREATED AUTHOR AUTHOR'S ORGANIZ ATION 09/26/2017 [facility] DATE CREATED AUTHOR AUTHOR'S ORGANIZ ATION 06/04/[address] [facility] [place] [place] [facility] DATE CREATED AUTHOR AUTHOR'S ORGANIZ ATION 07/25/2021 [facility] DATE CREATED AUTHOR AUTHOR'S ORGANIZ ATION 10/28/[address] [facility] DATE CREATED AUTHOR AUTHOR'S ORGANIZ ATION 11/09/[address] [facility] [place] [place] [facility] DATE CREATED AUTHOR AUTHOR'S ORGANIZ ATION 02/19/2022 [facility] DATE CREATED AUTHOR AUTHOR'S ORGANIZ ATION 02/25/2023 [facility] DATE CREATED AUTHOR AUTHOR'S ORGANIZ ATION 04/23/2023 [facility] ([place] DATE CREATED AUTHOR AUTHOR'S ORGANIZ ATION 01/28/2024 [facility] DATE CREATED AUTHOR AUTHOR'S ORGANIZ ATION 02/14/2024 [facility] DATE CREATED AUTHOR AUTHOR'S ORGANIZ ATION 10/21/2024 [facility] DATE CREATED AUTHOR AUTHOR'S ORGANIZ ATION 10/22/2024 [facility] Source Comments (unrecognize d section and content) In the event this informatio n is protected by the Federal Confidentiality of Alcohol and Drug Abuse Patient Records regulations: The Federal rules restrict any use of the information to criminally investigate or prosecute any alcohol or drug abuse patient.[facility] the event this information is protected by the Federal Confidentiality of Alcohol and Drug Abuse Patient Records regulations: The Federal rules restrict any use of the information to criminally investigate or prosecute any alcohol or drug abuse patient.[facility] HospitalIn the event this information is protected by the Federal Confidentiality of Alcohol and Drug Abuse Patient Records regulations: The Federal rules restrict any use of the information to criminally investigate or prosecute any alcohol or drug abuse patient.[facility] the event this information is protected by the Federal Confidentiality of Alcohol and Drug Abuse Patient Records regulations: The Federal rules restrict any use of the information to criminally investigate or prosecute any alcohol or drug abuse patient.[facility] HospitalIn the event this information is protected by the Federal Confidentiality of Alcohol and Drug Abuse Patient Records regulations: The Federal rules restrict any use of the information to criminally investigate or prosecute any alcohol or drug abuse patient.[facility] HospitalIn the event this information is protected by the Federal Confidentiality of Alcohol and Drug Abuse Patient Records regulations: The Federal rules restrict any use of the information to criminally investigate or prosecute any alcohol or drug abuse patient.[facility] HospitalIn the event this information is protected by the Federal Confidentiality of Alcohol and Drug Abuse Patient Records regulations: The Federal rules restrict any use of the information to criminally investigate or prosecute any alcohol or drug abuse patient.[facility] HospitalIn the event this information is protected by the Federal Confidentiality of Alcohol and Drug Abuse Patient Records regulations: The Federal rules restrict any use of the information to criminally investigate or prosecute any alcohol or drug abuse patient.[facility] HospitalIn the event this information is protected by the Federal Confidentiality of Alcohol and Drug Abuse Patient Records regulations: The Federal rules restrict any use of the information to criminally investigate or prosecute any alcohol or drug abuse patient.[facility] HospitalIn the event this information is protected by the Federal Confidentiality of Alcohol and Drug Abuse Patient Records regulations: The Federal rules restrict any use of the information to criminally investigate or prosecute any alcohol or drug abuse patient.[facility] HospitalIn the event this information is protected by the Federal Confidentiality of Alcohol and Drug Abuse Patient Records regulations: The Federal rules restrict any use of the information to criminally investigate or prosecute any alcohol or drug abuse patient.[facility] HospitalIn the event this information is protected by the Federal Confidentiality of Alcohol and Drug Abuse Patient Records regulations: The Federal rules restrict any use of the information to criminally investigate or prosecute any alcohol or drug abuse patient.[facility] HospitalIn the event this information is protected by the Federal Confidentiality of Alcohol and Drug Abuse Patient Records regulations: The Federal rules restrict any use of the information to criminally investigate or prosecute any alcohol or drug abuse patient.[facility] HospitalIn the event this information is protected by the Federal Confidentiality of Alcohol and Drug Abuse Patient Records regulations: The Federal rules restrict any use of the information to criminally investigate or prosecute any alcohol or drug abuse patient.[facility] HospitalIn the event this information is protected by the Federal Confidentiality of Alcohol and Drug Abuse Patient Records regulations: The Federal rules restrict any use of the information to criminally investigate or prosecute any alcohol or drug abuse patient.[facility] HospitalIn the event this information is protected by the Federal Confidentiality of Alcohol and Drug Abuse Patient Records regulations: The Federal rules restrict any use of the information to criminally investigate or prosecute any alcohol or drug abuse patient.[facility] HospitalIn the event this information is protected by the Federal Confidentiality of Alcohol and Drug Abuse Patient Records regulations: The Federal rules restrict any use of the information to criminally investigate or prosecute any alcohol or drug abuse patient.[facility] HospitalIn the event this information is protected by the Federal Confidentiality of Alcohol and Drug Abuse Patient Records regulations: The Federal rules restrict any use of the information to criminally investigate or prosecute any alcohol or drug abuse patient.[facility] HospitalIn the event this information is protected by the Federal Confidentiality of Alcohol and Drug Abuse Patient Records regulations: The Federal rules restrict any use of the information to criminally investigate or prosecute any alcohol or drug abuse patient.[facility] HospitalIn the event this information is protected by the Federal Confidentiality of Alcohol and Drug Abuse Patient Records regulations: The Federal rules restrict any use of the information to criminally investigate or prosecute any alcohol or drug abuse patient.[facility] HospitalIn the event this information is protected by the Federal Confidentiality of Alcohol and Drug Abuse Patient Records regulations: The Federal rules restrict any use of the information to criminally investigate or prosecute any alcohol or drug abuse patient.[facility] HospitalIn the event this information is protected by the Federal Confidentiality of Alcohol and Drug Abuse Patient Records regulations: The Federal rules restrict any use of the information to criminally investigate or prosecute any alcohol or drug abuse patient.[facility] HospitalIn the event this information is protected by the Federal Confidentiality of Alcohol and Drug Abuse Patient Records regulations: The Federal rules restrict any use of the information to criminally investigate or prosecute any alcohol or drug abuse patient.[facility] HospitalIn the event this information is protected by the Federal Confidentiality of Alcohol and Drug Abuse Patient Records regulations: The Federal rules restrict any use of the information to criminally investigate or prosecute any alcohol or drug abuse patient.[facility] HospitalIn the event this information is protected by the Federal Confidentiality of Alcohol and Drug Abuse Patient Records regulations: The Federal rules restrict any use of the information to criminally investigate or prosecute any alcohol or drug abuse patient.[facility] HospitalIn the event this information is protected by the Federal Confidentiality of Alcohol and Drug Abuse Patient Records regulations: The Federal rules restrict any use of the information to criminally investigate or prosecute any alcohol or drug abuse patient.[facility] HospitalIn the event this information is protected by the Federal Confidentiality of Alcohol and Drug Abuse Patient Records regulations: The Federal rules restrict any use of the information to criminally investigate or prosecute any alcohol or drug abuse patient.[facility] HospitalIn the event this information is protected by the Federal Confidentiality of Alcohol and Drug Abuse Patient Records regulations: The Federal rules restrict any use of the information to criminally investigate or prosecute any alcohol or drug abuse patient.[facility] HospitalIn the event this information is protected by the Federal Confidentiality of Alcohol and Drug Abuse Patient Records regulations: The Federal rules restrict any use of the information to criminally investigate or prosecute any alcohol or drug abuse patient.[facility] HospitalIn the event this information is protected by the Federal Confidentiality of Alcohol and Drug Abuse Patient Records regulations: The Federal rules restrict any use of the information to criminally investigate or prosecute any alcohol or drug abuse patient.[facility] HospitalIn the event this information is protected by the Federal Confidentiality of Alcohol and Drug Abuse Patient Records regulations: The Federal rules restrict any use of the information to criminally investigate or prosecute any alcohol or drug abuse patient.[facility] HospitalIn the event this information is protected by the Federal Confidentiality of Alcohol and Drug Abuse Patient Records regulations: The Federal rules restrict any use of the information to criminally investigate or prosecute any alcohol or drug abuse patient.[facility] Reason for Visit (unrecogniz ed section and content) Reason Comments Orders Reason Comments Schedule Surgery Reason Comments Spirometry Specialty Diagnoses / Procedures Referred By Contac t Referred To Contact [facility] Diagnoses Chronic obstructive pulmonary disease, unspecified COPD type (HCC) Procedures LUNG DIFFUSION CAPACITY (DLCO) DIFFUSING CAPACITY Forrest Lott, FADUMO.BULL BUCKER [address] [employer] [address] [place] [address] [facility] [place] [address] [place] [id number] Referral ID Status Reason Start Date Expiration Date V isits Requested Visits Authorized [id number] Closed Auto-Generate d Referral 06/25/2021 07/25/2022 1 1 Specialty Diagnoses / Procedures Referred By Contac t Referred To Contact [facility] Diagnoses Chronic obstructive pulmonary disease, unspecified COPD type (HCC) Procedures SPIROMETRY BASELINE ONLY SPMTRY W/VC EXPIRATORY ABIMAEL W/WO MXML VOL VNTJ Forrest Lott, CONTESTANT COORDINATOR.BULL BUCKER [address] [employer] [address] [place] [id number] [facility] [address] [place] [address] Referral ID Status Reason Start Date Expiration Date V isits Requested Visits Authorized [id number] Closed Auto-Generate d Referral 06/25/2021 07/25/2022 1 1 Specialty Diagnoses / Procedures Referred By Contac t Referred To Contact CT IMAGING Diagnoses Disorder of arteries and arterioles (HCC) Procedures CTA CHEST (NONGATED) WO/W IVCON CT ANGIOGRAPHY CHEST W/CONTRAST/NONCONTRAST Forrest Lott, CONTESTANT COORDINATOR.BULL BUCKER 1 [facility] [address] [place] [address] [address] [address] Imaging Referral ID Status Reason Start Date Expiration Date Visits Requested Visits Authorized [id number] Authorized Auto-Generat ed Referral 06/25/2021 07/25/2022 1 1 Reason Onset Date Comments Orders 07/22/2021 Specialty Diagnoses / Procedures Referred By Contac t Referred To Contact CT IMAGING Diagnoses 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) Preoperative testing Disorder of arteries and arterioles (HCC) Procedures CTA CHEST (GATED) WO/W IVCON CT ANGIOGRAPHY CHEST W/CONTRAST/NONCONTRAST Liset Ocampo, CONTESTANT COORDINATOR.BULL BUCKER [address] [address] [address] Imaging Referral ID Status Reason Start Date Expiration Date V isits Requested Visits Authorized [id number] Closed Auto-Generate d Referral 07/22/2021 09/21/2021 1 1 Reason Comments Appointment appointment Reason Comments Surgery Cancelled LMTCB Reason Comments CT ORDER Reason Comments Appointment Rescheduled new surgery date Reason Comments Pre-Op Exam Reason Comments Results Reason Comments Consult Reason Comments Results Reason Comments Home Care confirmation call Reason Comments Home Care potential severe tori g interaction Specialty Diagnoses / Procedures Referred By Contac t Referred To Contact [facility] Home [facility] [address] [place] [address] Referral ID Status Reason Start Date Expiration Date Visits Re quested Visits Authorized [id number] 1 1 Reason Comments Home Care pt question Reason Comments Home Care pt request Reason Comments Post Op 09/21/21 CABG Reason Comments Cardiac Rehab [facility] Reason Comments Home Care notification of home health nursing discharge Reason Comments Seizures Reason Comments Med Refill Care Teams (unrecognized sec tion and content) Team Status: Active Member Role Status Dates Dr. Parish Graff DO Primary Care Provider Active Team Status: Inactive Member Role Status Dates Dr. Radha Quintero MD Primary Care Provider, Referri ng Provider Active Dr. Alex Mejia DO Attending Provider Active Team Status: Active Member Role Status Dates Dr. Radha Quintero MD Primary Care Provider Active Dr. Brennan Styles MD Emergency Provider Active Dr. Zaki Vigil MD Attending Provider Active Team Status: Active Member Role Status Dates Dr. Radha Quintero MD Primary Care Provider Active Dr. Brennan Styles MD Emergency Provider Active Dr. Zaki Vigil MD Admit Provider, Other Provider A ctive Dr. Elvi Layton MD Attending Provider, Other Provid er Active Team Status: Inactive Member Role Status Dates Dr. Radha Quintero MD Primary Care Provider, Attendi ng Provider Active Team Status: Active Member Role Status Dates Dr. Radha Quintero MD Primary Care Provider, Attendi ng Provider Active Team Status: Active Member Role Status Dates Dr. Radha Quintero MD Primary Care Provider Active Dr. Alex Mejia DO Attending Provider, Referring Provider, Other Provider Active Team Status: Active Member Role Status Dates Dr. Radha Quintero MD Primary Care Provider Active Dr. Alex Mejia DO Attending Provider Active Dr. Stacy Germain MD Referring Provider Active Team Status: Inactive Member Role Status Dates Dr. Radha Quintero MD Primary Care Provider, Referri ng Provider Active Tina Jefferson CABLE REELER, CABLE REELER-C Attending Provider Active Team Status: Inactive Member Role Status Dates Dr. Radha Quintero MD Primary Care Provider Active Dr. Zaki Estevez MD Attending Provider, Emergency Pr ovider Active Team Status: Inactive Member Role Status Dates Dr. Radha Quintero MD Primary Care Provider Active Dr. Brennan Styles MD Emergency Provider Active Dr. Zaki Vigil MD Admit Provider, Other Provider A ctive Dr. Elvi Layton MD Attending Provider Active Team Status: Inactive Member Role Status Dates Dr. Radha Quintero MD Primary Care Provider Active Dr. Thai Nice DO Attending Provider, Emergency Provider Active Team Status: Inactive Member Role Status Dates Dr. Radha Quintero MD Primary Care Provider Active Dr. Álvaro Hsu MD Attending Provider, Emergency Provi megan Active Team Status: Inactive Member Role Status Dates Dr. Nilesh Olivas MD Attending Provider, Referring Provider Active Dr. Parish Graff , DO Primary Care Provider Active Team Status: Inactive Member Role Status Dates Dr. Parish Graff , DO Primary Care Provider Active Tina Jefferson CABLE REELER, CABLE REELER-C Attending Provider, Referrin g Provider Active [employer] Filler Relationship Specialty Start Date End Date Clement Swanson MD PCP - General Family Practice 03/12/13 Sophia [place] ([place]) [address] [facility] [place] [phone] Pulmonary and Critical Care Medicine 06/25/21 Betty Parker BULL BUCKER [address] [facility] [place] [address] Family Practice 06/25/21 [employer] Relationship Specialty Start Date End Date Clement Swanson MD PCP - General Family Practice 03/12/13 Sophia Madison ([place]) [address] [place] [phone] Pulmonary and Critical Care Medicine 06/25/21 Betty Parker BULL BUCKER [address] [facility] [place] [address] Family Practice 06/25/21 Pl[employer] Filler Relationship Specialty Start Date End Date Clement Swanson MD PCP - General [facility] Practice 03/12/13 Sophia Madison ([place]) [address] [place] [phone] Pulmonary and Critical Care Medicine 06/25/21 Betty Parker, BULL BUCKER [address] [place] [address] [facility] Practice 06/25/21 [employer] Filler Relationship Specialty Start Date End Date Clement Swanson MD PCP - General Family Practice 03/12/13 Sophia Madison (Pa) [address] [facility] [place] [address] Pulmonary and Critical Care Medicine 06/25/21 Betty Parker BULL BUCKER [address] [place] [address] [facility] 06/25/21 [employer] Mold Filler Relationship Specialty Start Date End Date Clement Swanson MD PCP - General [facility] Practice 03/12/13 Sophia Madison (Pa) [address] [facility] [place] [address] Pulmonary and Critical Care Medicine 06/25/21 Betty Parker, BULL BUCKER [address] [place] [address] [facility] Practice 06/25/21 Pl[employer]s Mold Filler Relationship Specialty Start Date End Date Clement Swanson MD PCP - General [facility] Practice 03/12/13 Sophia Madison (Pa) [address] [facility] [place] [address] Pulmonary and Critical Care Medicine 06/25/21 Betty Parker, BULL BUCKER [address] [place] [address] [facility] Practice 06/25/21 [employer] Mold Filler Relationship Specialty Start Date End Date Clement Swanson MD PCP - General [facility] Practice 03/12/13 Sophia Madison ([place]) [address] [place] [address] Pulmonary and Critical Care Medicine 06/25/21 Betty Parker, BULL BUCKER [address] [place] [address] [facility] 06/25/21 Pl[employer]s Mold Filler Relationship Specialty Start Date End Date Clement Swanson MD [facility] Practice 03/12/13 Sophia Madison (Pa) [address] [facility] [place] [address] Pulmonary and Critical Care Medicine 06/25/21 Betty Parker, BULL BUCKER [address] [place] [address] [facility] 06/25/21 [employer] Mold Filler Relationship Specialty Start Date End Date Clement Swanson MD PCP - General [facility] Practice 03/12/13 Sophia Madison (Pa) [address] [place] [address] Pulmonary and Critical Care Medicine 06/25/21 Betty Parker, BULL BUCKER [address] [place] [address] [facility] 06/25/21 Pl[employer]s Mold Filler Relationship Specialty Start Date End Date Clement Swanson MD PCP - General Family Practice 03/12/13 Sophia Madison (Pa) [address] [place] [address] Pulmonary and Critical Care Medicine 06/25/21 Betty Parker, BULL BUCKER [address] [place] [address] Family Practice 06/25/21 [employer] Mold Filler Relationship Specialty Start Date End Date Clement Swanson MD PCP - General Family Practice 03/12/13 Sophia Madison (Pa) [address] [place] [address] Pulmonary and Critical Care Medicine 06/25/21 Betty Parker, BULL BUCKER [address] [place] [address] Family Practice 06/25/21 [employer]s Mold Filler Relationship Specialty Start Date End Date Clement Swanson MD PCP - General Family Practice 03/12/13 Sophia Madison (Pa) [address] [place] [address] Pulmonary and Critical Care Medicine 06/25/21 Betty Parker, BULL BUCKER [address] [place] [address] Family Practice 06/25/21 Plastic Dolls Mold Filler Relationship Specialty Start Date End Date Clement Swanson MD [address] [place] [address] [place] [address] PCP - General Family Practice 03/12/13 Sophia Madison (Pa) [address] [place] [address] Pulmonary and Critical Care Medicine 06/25/21 Betty Parker, CONTESTANT COORDINATOR.BULL BUCKER [address] [place] [address] [facility] 06/25/21 Tami Luna PA-C [address] [place], [place] [phone] Referring Cardiothoracic Surgery 09/26/21 Tami Luna PA-C [address] [place], [place] [id number] Home Care Physician Cardiothoracic Surgery 09/26/21 Plastic Dolls Mold Filler Relationship Specialty Start Date End Date Clement Swanson MD [address] [place] [id number] PCP - [facility] 03/12/13 Sophia Madison (Pa) [address] [place] [address] Pulmonary and Critical Care Medicine 06/25/21 Betty Parker, CONTESTANT COORDINATOR.BULL BUCKER [address] [place] [address] [facility] 06/25/21 Tami Luna PA-C 1 [place], [place] [phone] Referring Cardiothoracic Surgery 09/26/21 Tami Luna PA-C 1 [place], [place] [id number] Home Care Physician Cardiothoracic Surgery 09/26/21 Sudheer Willis RN [address] [place] [address] Seedling Puller Post Acute Care 09/29/21 Plastic Dolls Mold Filler Relationship Specialty Start Date End Date Clement Swanson MD [address] [place], [place] [id number] PCP - General Family Practice 03/12/13 Sophia Madison (Pa) [address] [facility] [place] [address] Pulmonary and Critical Care Medicine 06/25/21 Betty Parker, FADUMO.BULL BUCKER [address] [facility] [place] [address] [facility] Practice 06/25/21 Tami Luna PA-C 1 [place] [address] Referring Cardiothoracic Surgery 09/26/21 Tami Luna PA-C [address] [place] [address] Home Care Physician Cardiothoracic Surgery 09/26/21 Sudheer Willis, RN [address] [place], [place] [phone] Seedling Puller Post Acute Care 09/29/21 Plastic Dolls Mold Filler Relationship Specialty Start Date End Date Clement Swanson MD [address] [place] [address] PCP - General [facility] Practice 03/12/13 Sophia Madison (Pa) [address] [place] [address] Pulmonary and Critical Care Medicine 06/25/21 Betty Parker, FADUMO.BULL BUCKER [address] [facility] [place] [address] [facility] 06/25/21 Tami Luna PA-C 1 [place] [address] Referring Cardiothoracic Surgery 09/26/21 Tami Luna PA-C 1 [place] [address] Home Care Physician Cardiothoracic Surgery 09/26/21 Sudheer Willis RN [address] [place], [place] [phone] Seedling Puller Post Acute Care 09/29/21 Plastic Dolls Mold Filler Relationship Specialty Start Date End Date Clement Swanson MD [address] [place], [place] [id number] PCP - General Family Practice 03/12/13 Sophia Madison (Pa) [address] [facility] [place] [address] Pulmonary and Critical Care Medicine 06/25/21 Betty Parker APRN.BULL BUCKER [address] [place] [address] Family Practice 06/25/21 Tami Luna PA-C 1 [place] [address] Referring Cardiothoracic Surgery 09/26/21 Tami Luna PA-C 1 [place] [address] Home Care Physician Cardiothoracic Surgery 09/26/21 Sudheer Willis, MASTER [address] [place], [place] [phone] Seedling Puller Post Acute Care 09/29/21 Plastic Dolls Mold Filler Relationship Specialty Start Date End Date Clement Swanson MD [address] [place] [address] PCP - General Family Practice 03/12/13 Sophia Madison (Pa) [address] [facility] [place] [address] Pulmonary and Critical Care Medicine 06/25/21 Betty Parker, FADUMO.BULL BUCKER [address] [place] [address] [facility] 06/25/21 Tami Luna PA-C 1 [place] [address] Referring Cardiothoracic Surgery 09/26/21 Tami Luna PA-C [address] [place] [address] Home Care Physician Cardiothoracic Surgery 09/26/21 Sudheer Willis RN [address] [place] [address] Seedling Puller Post Acute Care 09/29/21 Plastic Dolls Mold Filler Relationship Specialty Start Date End Date Clement Swanson MD [address] [place] [address] PCP - General [facility] Practice 03/12/13 Sophia Madison (Pa) [address] [place] [address] Pulmonary and Critical Care Medicine 06/25/21 Betty Parker, CONTESTANT COORDINATOR.BULL BUCKER [address] [place] [address] [facility] 06/25/21 Tami Luna PA-C 1 [place] [address] Referring Cardiothoracic Surgery 09/26/21 Tami Luna PA-C 1 [place] [address] Home Care Physician Cardiothoracic Surgery 09/26/21 Sudheer Willis RN [address] [place], [place] [phone] Seedling Puller Post Acute Care 09/29/21 Plastic Dolls Mold Filler Relationship Specialty Start Date End Date Clement Swanson MD [address] [place], [place] 613761 PCP - General Family Practice 03/12/13 Sophia Madison (Pa) [address] [place] [address] Pulmonary and Critical Care Medicine 06/25/21 Betty Parker, CONTESTANT COORDINATOR.BULL BUCKER [address] [facility] [place] [place] [address] [facility] 06/25/21 Tami Luna PA-C 1 [place] [address] Referring Cardiothoracic Surgery 09/26/21 Tami Luna PA-C [address] [place] [address] Home Care Physician Cardiothoracic Surgery 09/26/21 Sudheer Willis, RN [address] [place], [place] [phone] Seedling Puller Post Acute Care 09/29/21 Plastic Dolls Mold Filler Relationship Specialty Start Date End Date Clement Swanson MD [address] [place], [place] [id number] PCP - General Family Practice 03/12/13 Sophia Madison (Pa) [address] [place] [address] Pulmonary and Critical Care Medicine 06/25/21 Betty Parker CONTESTANT COORDINATOR.BULL BUCKER [address] [facility] [place] [address] Family Practice 06/25/21 Tami Luna PA-C [address] [place], [place] [phone] Referring Cardiothoracic Surgery 09/26/21 Tami Luna PA-C 1 [place], [place] [id number] Home Care Physician Cardiothoracic Surgery 09/26/21 Sudheer Willis RN [address] [place], [place] [phone] Seedling Puller Post Acute Care 09/29/21 Sophia Madison (Pa) [address] [place] [address] Pulmonary and Critical Care Medicine 10/16/21 Plastic Dolls Mold Filler Relationship Specialty Start Date End Date Clement Swanson MD [address] [place], [place] [id number] PCP - General Family Practice 03/12/13 Sophia Madison (Pa) [address] [place] [address] Pulmonary and Critical Care Medicine 06/25/21 Betty Parker APRN.BULL BUCKER [address] [place] [address] Family Practice 06/25/21 Tami Luna PA-C 1 [place], [place] [phone] Referring Cardiothoracic Surgery 09/26/21 Sudheer Willis RN [address] [place] [address] Seedling Puller Post Acute Care 09/29/21 Sophia Madison (Pa) [address] [facility] [place] [address] Pulmonary and Critical Care Medicine 10/16/21 Linda Winkler, CONTESTANT COORDINATOR.BULL BUCKER [address] [facility] [address] [place], [place] [phone] Home Care Physician Cardiac Surg 10/21/21 Plastic Dolls Mold Filler Relationship Specialty Start Date End Date Clement Swanson MD [address] [place], [place] 412241 PCP - General Family Practice 03/12/13 Sophia Madison (Pa) [address] [place] [address] Pulmonary and Critical Care Medicine 06/25/21 Betty Parker, CONTESTANT COORDINATOR.BULL BUCKER [address] [place] [address] Family Practice 06/25/21 Tami Luna PA-C 1 [place], [place] [phone] Referring Cardiothoracic Surgery 09/26/21 Sudheer Willis, MASTER [address] [place] [address] Seedling Puller Post Acute Care 09/29/21 Sophia Madison (Pa) [address] [place] [address] Pulmonary and Critical Care Medicine 10/16/21 Linda Winkler, CONTESTANT COORDINATOR.BULL BUCKER [address] [facility] [address] [place], [place] [phone] Home Care Physician Cardiac Surg 10/21/21 Plastic Dolls Mold Filler Relationship Specialty Start Date End Date Clement Swanson MD [address] [place] [address] PCP - General Family Practice 03/12/13 Sophia Madison (Pa) [address] [facility] [place] [address] Pulmonary and Critical Care Medicine 06/25/21 Betty Parker, CONTESTANT COORDINATOR.BULL BUCKER [address] [place] [address] [facility] 06/25/21 Tami Luna PA-Johanny 1 [place], [place] [phone] Referring Cardiothoracic Surgery 09/26/21 Sophia Madison (Pa) [address] [facility] [place] [address] Pulmonary and Critical Care Medicine 10/16/21 Linda Winkler, CONTESTANT COORDINATOR.BULL BUCKER [address] [facility] [address] [place], [place] [phone] Home Care Physician Cardiac Surg 10/21/21 Plastic Dolls Mold Filler Relationship Specialty Start Date End Date Radha Quintero MD [address] [place] [address] PCP - General Internal Medicine 11/06/21 Sophia Madison (Pa) [address] [facility] [place] [address] Pulmonary and Critical Care Medicine 06/25/21 Betty Parker, CONTESTANT COORDINATOR.BULL BUCKER [address] [facility] [place] [address] [facility] 06/25/21 Tami Luna PA-Johanny 1 [place] [address] Referring Cardiothoracic Surgery 09/26/21 Sophia Madison (Pa) [address] [facility] [place] [address] Pulmonary and Critical Care Medicine 10/16/21 Linda Winkler, CONTESTANT COORDINATOR.BULL BUCKER [address] [facility] [address] [place] [address] Home Care Physician Cardiac Surg 10/21/21 Radha Quintero MD [address] [place] [address] Internal Medicine 11/06/21 Plastic Dolls Mold Filler Relationship Specialty Start Date End Date Radha Quintero MD [address] [place] [address] PCP - General Internal Medicine 11/06/21 Sophia Madison (Pa) [address] [place] [address] Pulmonary and Critical Care Medicine 06/25/21 Betty Parker, CONTESTANT COORDINATOR.BULL BUCKER [address] [place] [address] [facility] 06/25/21 Tami Luna PA-C 1 [place] [address] Referring Cardiothoracic Surgery 09/26/21 Sophia Maidson (Pa) [address] [place] [address] Pulmonary and Critical Care Medicine 10/16/21 Linda Winkler, CONTESTANT COORDINATOR.BULL BUCKER [address] [facility] [address] [place] [address] Home Care Physician Cardiac Surg 10/21/21 Radha Quintero MD [address] [facility] [place] [address] Internal Medicine 11/06/21 Team Status: Active Member Role Status Dates Dr. Radha Quintero MD Primary Care Provider Active Team Status: Inactive Member Role Status Dates Dr. Radha Quintero MD Primary Care Provider, Referri ng Provider Active Dr. Alfonso Jain MD Attending Provider Active Team Status: Inactive Member Role Status Dates Dr. Radha Quintero MD Primary Care Provider Active Dr. Shayla Pascual DO Emergency Provider Active Team Status: Inactive Member Role Status Dates Dr. Radha Quintero MD Primary Care Provider, Referri ng Provider Active Sophia Madison PA, PA Attending Provider Active Team Status: Inactive Member Role Status Dates Dr. Radha Quintero MD Primary Care Provider, Referri ng Provider Active Dr. Alonso Hylton MD Attending Provider Active Team Status: Inactive Member Role Status Dates Dr. Radha Quintero MD Primary Care Provider, Referri ng Provider Active Claire Salinas CABLE REELER, CABLE REELER-C Attending Provider Active Team Status: Active Member Role Status Dates Dr. Radha Quintero MD Primary Care Provider Active Dr. Anand Colvin DO Emergency Provider Active Dr. Gregorio Bingham MD Admit Provider, Other Provide r Active Dr. Jonel Godinez MD Attending Provider, Other Provider Active Team Status: Inactive Member Role Status Dates Dr. Radha Quintero MD Primary Care Provider Active Dr. Shayla Pascual DO Attending Provider, Emergency P shashi Active Team Status: Inactive Member Role Status Dates Dr. Radha Quintero MD Primary Care Provider Active Dr. Anand Colvin DO Emergency Provider Active Dr. Gregorio Bingham MD Admit Provider, Other Provide r Active Dr. Jonel Godinez MD Attending Provider Active Team Status: Inactive Member Role Status Dates Dr. Radha Quintero MD Primary Care Pro vider, Attending Provider, Referring Provider Active Team Status: Inactive Member Role Status Dates Dr. Radha Quintero MD Primary Care Provider Active Dr. Zaki Estevez MD Emergency Provider Active Team Status: Active Member Role Status Dates Dr. Radha Quintero MD Primary Care Provider Active Dr. Brennan Styles MD Emergency Provider Active Dr. Zaki Vigil MD Admit Provider, Attending Provid er Active Team Status: Inactive Member Role Status Dates Dr. Radha Quintero MD Primary Care Provider Active Dr. Thai Nice DO Emergency Provider Active Team Status: Inactive Member Role Status Dates Dr. Radha Quintero MD Primary Care Provider Active Dr. Álvaro Hsu MD Emergency Provider Active Team Status: Active Member Role Status Dates Dr. Radha Quintero MD Primary Care Provider Active Dr. Alex Mejia DO Attending Provider, Other Provide r Active Team Status: Active Member Role Status Dates Dr. Radha Quintero MD Primary Care Provider Active Dr. Alex Mejia DO Attending Provider Active Team Status: Inactive Member Role Status Dates Dr. Parish Graff DO Primary Care Provider Active Bryan Gomez MD Emergency Provider Active Team Status: Inactive Member Role Status Dates Dr. Radha Quintero MD Referring Provider Active Tina Jefferson CABLE REELER, CABLE REELER-C Attending Provider Active Dr. Parish Graff DO Primary Care Provider Active Team Status: Inactive Member Role Status Dates Dr. Parish Graff DO Primary Care Provider Active Bryan Gomez MD Attending Provider, Emergency Provid er Active Team Status: Inactive Member Role Status Dates Dr. Parish Graff DO Primary Care Provider Active Dr. Thai Nice DO Emergency Provider Active Plastic Dolls Mold Filler Relationship Specialty Start Date End Date Radha Quintero MD [address] [place] [address] PCP - General Family Medicine 11/24/22 Plastic Dolls Mold Filler Relationship Specialty Start Date End Date Radha Quintero MD [address] [place] [address] PCP - General Family Medicine 11/24/22 Plastic Dolls Mold Filler Relationship Specialty Start Date End Date Radha Quintero MD [address] [place] [address] PCP - General Family Medicine 11/24/22 Plastic Dolls Mold Filler Relationship Specialty Start Date End Date Radha Quintero MD [address] [place] [address] PCP - General Family Medicine 11/24/22 Team Status: Active Member Role/Relationship Status Dates Dr. Parish Graff DO Primary Care Provider Active Team Status: Inactive Member Role/Relationship Status Dates Dr. Parish Graff DO Primary Care Provider Active Start: July 10, 2024 End: July 10, 2024 Dr. Parish Graff DO Referring Provider Active Start: July 10, 2024 End: July 10, 2024 Aide Mcdonnell NP CABLE REELER-C Attending Provider Active Start: July 10, 2024 End: July 10, 2024 Team Status: Active Member Role/Relationship Status Dates Dr. Parish Graff DO Primary Care Provider Active Start: July 10, 2024 Dr. Rita Mathew MD Attending Provider Active Start: July 10, 2024 Dr. Rita Mathew MD Referring Provider Active Start: July 10, 2024 Team Status: Inactive Member Role/Relationship Status Dates Dr. Parish Graff DO Primary Care Provider Active Start: July 17, 2024 End: July 17, 2024 Dr. Parish Graff DO Referring Provider Active Start: July 17, 2024 End: July 17, 2024 JOSE MARIA Youssef Attending Provider Active Start: July 17, 2024 End: July 17, 2024 Team Status: Inactive Member Role/Relationship Status Dates Dr. Parish Graff DO Primary Care Provider Active Start: October 12, 2024 End: October 12, 2024 Dr. Parish Graff DO Referring Provider Active Start: October 12, 2024 End: October 12, 2024 DEYSI Davison Attending Provider Active St art: October 12, 2024 End: October 12, 2024 Team Status: Inactive Member Role/Relationship Status Dates Dr. Parish Graff DO Primary Care Provider Active Start: July 17, 2024 End: July 17, 2024 Dr. Parish Graff DO Referring Provider Active Start: July 17, 2024 End: July 17, 2024 JOSE MARIA Youssef Attending Provider Active Start: July 17, 2024 End: July 17, 2024 Team Status: Inactive Member Role/Relationship Status Dates Dr. Parish Graff DO Primary Care Provider Active Start: October 12, 2024 End: October 12, 2024 Dr. Parish Graff DO Referring Provider Active Start: October 12, 2024 End: October 12, 2024 DEYSI Davison Attending Provider Active St art: October 12, 2024 End: October 12, 2024 Team Status: Inactive Member Role/Relationship Status Dates Dr. Parish Graff DO Primary Care Provider Active Start: October 18, 2024 End: October 18, 2024 Dr. Parish Graff DO Referring Provider Active Start: October 18, 2024 End: October 18, 2024 Aide Mcdonnell CABLE REELER, CABLE REELER-C Attending Provider Active Start: October 18, 2024 End: October 18, 2024 Team Status: Active Member Role/Relationship Status Dates Dr. Parish Graff DO Primary Care Provider Active Start: October 18, 2024 Dr. Rita Mathew MD Attending Provider Active Start: October 18, 2024 Dr. Rita Mathew MD Referring Provider Active Start: October 18, 2024 Goals (unrecognized section and content) Goals may be documented in a n alternate sectionGoals may be documented in an alternate sectionGoals may be documented in an alternate sectionGoals may be documented in an alternate sectionGoals may be documented in an alternate sectionGoals may be documented in an alternate sectionGoals may be documented in an alternate sectionGoals may be documented in an alternate sectionGoals may be documented in an alternate sectionGoals may be documented in an alternate sectionGoals may be documented in an alternate sectionGoals may be documented in an alternate sectionGoals may be documented in an alternate sectionGoals may be documented in an alternate sectionGoals may be documented in an alternate sectionGoals may be documented in an alternate section No data available for this sectionGoals may be documented in an alternate section No data available for this sectionGoals may be documented in an alternate sectionGoals may be documented in an alternate section No data available for this section No data available for this section No data available for this section No data available for this section No data available for this section No data available for this sectionGoals may be documented in an alternate section No data available for this section No data available for this section No data available for this section No data available for this section No data available for this section No data available for this section No data available for this section No data available for this sectionGoals may be documented in an alternate sectionGoals may be documented in an alternate section FOR RECORDS PERTAINING TO PATIENTS WHO ARE OR HAVE BEEN ENROLLED IN A CHEMICAL DEPENDENCY/SUBSTANCEABUSE PROGRAM, SOME INFORMATION MAY BE OMITTED. This clinical summary was aggregated from multiple sources. Caution should be exercised in using it in the provision of clinical care. This summary normalizes information from multiple sources, and as a consequence, information in this document may materially change the coding, format and clinical context of patient data. In addition, data may be omitted in some cases. CLINICAL DECISIONS SHOULD BE BASED ON THE PRIMARY CLINICAL RECORDS. [facility]. provides no warranty or guarantee of the accuracy or completeness of information in this document.
[2024-11-10 01:52] LABS: Differential Comment SCANNED
[2024-11-10 02:12] LABS: Anion Gap 10 (5-15); BUN 18 mg/dL (4-19); BUN/Creat Ratio 18.5 RATIO (10-20); Calcium,Total 8.6 mg/dL (7.6-11.0); Carbon Dioxide 26.2 mmol/L (21.0-32.0); Chloride 105 mmol/L (98-108); Estimated Creatinine Clearance 65.26 ml/min (50-250); Glucose 80 mg/dL (70-99); Potassium 3.7 mmol/L (3.3-5.1)
[2024-11-10 02:20] LABS: Mucous, Urine 0 SEEN /hpf (<or=2+); Squamous Epithelial Cells - UA 0 SEEN /hpf (0-5)
[2024-11-10 02:22] LABS: Color, Urine Straw (Yellow); Glucose, Dipstick Normal (Normal); Ketone-Dipstick Negative (Negative); Leukocyte Esterase-Dipstick Negative /ul (Negative); Nitrite-Dipstick Negative (Negative); Occult Blood-Urine 10 /ul (Negative); Protein-Dipstick Negative (Negative); Specific Gravity, Urine 1.010 (1.002-1.030); Urine Bilirubin Dipstick Negative (Negative)
[2024-11-10 03:11] LABS: Troponin T High Sens 2 HR 9 ng/L (<=22)
[2024-11-10 03:17] LABS: Red Blood Cells-Urine 0-5 SEEN /hpf (0-5)
== END 2024-11-10 03:27 | disposition home or self-care (01) ==
PROVIDERS: Emergency Provider Emergency Medicine; PCP Student in an Organized Health Care Education/Training Program; Visit Provider Emergency Medicine
DX: R42 Dizziness and giddiness (principal); G20.A1 Parkinson's disease without dyskinesia, without mention of fluctuations; I25.10 Atherosclerotic heart disease of native coronary artery without angina pectoris; E78.00 Pure hypercholesterolemia, unspecified; Z86.73 Personal history of transient ischemic attack (TIA), and cerebral infarction without residual deficits; I10 Essential (primary) hypertension; R00.1 Bradycardia, unspecified; F17.200 Nicotine dependence, unspecified, uncomplicated; K21.9 Gastro-esophageal reflux disease without esophagitis; Z86.69 Personal history of other diseases of the nervous system and sense organs; D50.9 Iron deficiency anemia, unspecified
CPT/HCPCS: 36415; 70450; 71046; 80048; 81001; 84484; 85025; 85610; 85730; 93005; 96360; 96361; 99285; A4216

== ENCOUNTER → 2025-03-27 | Outpatient (CLI) | payer MEDICARE, MEDICAID, SELFPAY ==
--- NOTE | 2025-03-27 18:14 | CT_ITS ---
PROCEDURE: CHEST WITHOUT CONTRAST 03/27/2025 REASON FOR EXAM: SMOKER, 1.1 CM NODULE LLL TECHNIQUE: Chest CT without contrast. Coronal and Sagittal reconstruction series were provided. One or more dose reduction techniques were used (e.g., Automated exposure control, adjustment of the mA and/or kV according to patient size, use of iterative reconstruction technique RADIATION DOSE SUMMARY: CTDlvol: 8.6 mGy DLP: 359.05 mGycm COMPARISON: 02/03/2024 FINDINGS: Lung windows again show underlying emphysema with bleb formation scattered throughout both lung pineda. Stable nonspecific pleural thickening in both hemithoraces. Stable calcified granuloma in the right upper lobe. There is evidence of chronic bronchitis with focal bronchiectatic changes noted in the upper and middle aspect of the posterior right lower lobe. There is no organized infiltrate or effusion. There is a stable triangular 3 mm nodule in the right middle lobe on axial image 95, and a stable 1.1 cm pleural-based nodule in the left lower lobe on axial image 120. No new suspicious noncalcified mass or nodule. Soft tissue windows show stable nodules in the left thyroid lobe. There are stable borderline enlarged axillary lymph nodes measuring up to 1.5 cm in short axis dimension. Stable AP window lymph nodes measuring up to 1.5 cm in short axis dimension. Stable calcified mediastinal and perihilar lymph nodes. Again, no interval change in their appearance since the previous study. No new suspicious adenopathy. 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 Peripheral calcifications noted in the thoracic aorta without aneurysm. Limited cuts through the upper abdomen do not show a suspicious abnormality. 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 Stable noncalcified nodules in the right middle and left lower lobes no new tito picious noncalcified mass or nodule Stable borderline enlarged axillary and mediastinal lymphadenopathy. No new hanley spicious noncalcified mass or nodule Degenerative bony changes Stable exam compared to 02/03/2024 Reading Location: [id number]
--- OUTSIDE RECORDS SUMMARY | 2025-03-27 18:20 | XMS RPT_ITS | CCD ---
Author Organization [facility] Care Team Providers Care Economics Consultant Name Role Phone JIE, JOE A Unavailable [...] Un available DEYSI Brantley Attending Provider Keith WINDOW/DISTRIBUTION CLERK, PRESLEY-Johanny Hernández Attending Provider Dr. Alfonso Jain Referring Provider DEYSI Barntley Referring Provider DEYSI Brantley Other Provider Dr. Zaki Morin Attending Provider Clement Swanson MD Primary Care Provider Keith BRAGG Christen A Unavailable Tami Luna PA-C Unavailable Tami Luna PA-C Unavailable Sudheer Willis RN Unavailable Care Physician, No Primary Primary Care Provider Unavailable Dr. Dillon Gooden Attending Provider Dr. Clement Walls Referring Provider Keith WINDOW/DISTRIBUTION CLERK, WINDOW/DISTRIBUTION CLERK-C Betty Attending Provider Dr. Alfonso Jain Referring Provider Care Physician, No Primary Referring Provider Un available Los JO PA Sophia Franz Attending Provider Dr. Radha Quintero Attending Provider [phone] Dr. Radha Quintero Primary Care Provider Sophia Madison (Pa) Unavailable Cathi DESIGN INTERN.ODALIS, Linda A Unavailable Radha Quintero MD Unavailable Radha Quintero MD Primary Care Provider Sophia Madison (Pa) Unavailable Keith DESIGN INTERN.Betty JACOBO A Unavailable Tami Luna PA-C Unavailable Sophia Madison (Pa) Unavailable Cathi DESIGN INTERN.ODALIS, Linda A Unavailable Radha Quintero MD Unavailable [...] available Dr. Radha Quintero Attending Provider Rafi WINDOW/DISTRIBUTION CLERK, WINDOW/DISTRIBUTION CLERK-C Tahir Ramsey Attending Provider Dr. Zaki Morin Attending Provider [phone] PARISH SADLER Attending Unavailable PARISH SADLER Referring [facility] Care Physician, No Primary Referring Provider Un available DEYSI Brantley Attending Provider Dr. Radha Quintero Primary Care Provider Dr. Alfonso Jain Attending Provider Dr. Radha Quintero Referring Provider [phone] Dr. Radha Quintero Attending Provider [phone] Rafi WINDOW/DISTRIBUTION CLERK, WINDOW/DISTRIBUTION CLERK-Johanny Ramsey Attending Provider Dr. Zaki Morin Attending [...] Provider Dr. Alonso Hylton Attending Provider DEYSI Branltey Attending Provider Brad WINDOW/DISTRIBUTION CLERK, WINDOW/DISTRIBUTION CLERK-Johanny Hanson Attending Provider [phone] Dr. Alfonso Jain Attending Provider Dr. Anand Colvin Emergency Provider [phone] Dr. Gregorio Bingham Admit Provider Dr. Gregorio [...] PA, PA Sophia Franz Attending Provider Brad WINDOW/DISTRIBUTION CLERK, WINDOW/DISTRIBUTION CLERK-C Claire Hanson Attending Provider [phone] Dr. Alfonso Jain Attending Provider Dr. Anand [...] Other Provider Dr. Radha Quintero Attending Provider Dr. Radha Quintero Referring Provider Dr. Alex Mejia Attending Provider [phone] Alex Mejia Referring Provider Dr. Alex Mejia Other Provider Dr. Stacy Germain Referring Provider Ronny WINDOW/DISTRIBUTION CLERK, WINDOW/DISTRIBUTION CLERK-C Tina Attending Provider [phone] HALKO DO, PARISH Attending Unavailable HALKO DO, [...] Unavailable INGRID WOODWARD, RADHA Primary Care Unavailable AMRY WOODWARD, SHAKIRA Consulting Unavailable KRYSTLE WOODWARD, CLEMENT Consulting Unavailable DARIEN WOODWARD, BRIANNA ORDONEZ Consulting U navailable HALKO DO, PARISH Attending Unavailable HALKO DO, PARISH Primary Care Unavailable HALKO DO, PARISH Primary Care Unavailable HALKO DO, PARISH Attending Unavailable HALKO DO, PARISH Attending Unavailable HALKO DO, PARISH Primary Care Unavailable HALKO DO, PARISH Primary Care Unavailable HALKO DO, PARISH Attending Unavailable ALEXANDRAKA DO, GARY Attending Unavailable INGRID WOODWARD, RADHA Primary Care Unavailable HALKO DO, PARISH Primary Care Unavailable BILLY WOODWARD, CHAPINCITO Hanson Attending Unavail able HALKO DO, PARISH Attending Unavailable HALKO DO, PARISH Primary Care Unavailable INGRID WOODWARD, RADHA Primary Care Unavailable Dr. Radha Quintero Referring Provider Ronny WINDOW/DISTRIBUTION CLERK, WINDOW/DISTRIBUTION CLERK-C Tina Attending Provider Dr. Parish Graff Primary Care Provider Ingrid WOODWARD, Radha Primary Care Provider LETY WHITTINGTON Attending Unavailable RADHA QUINTERO Referring Unavailable NILESH OLIVAS Attending Unavailable HALKO DO, PARISH Attending Unavailable PRERNA MONTERROSO, PARISH Primary Care Unavailable Prerna MONTERROSO, Dr. Callaway Primary Care Provider Dr. Parish Graff DO Referring Provider Sathya SHERWOOD-C, Aide Attending Provider Dr. Rita Mathew MD Attending Provider Dr. Rita Mathew MD Referring Provider Marine SHERWOOD-CSanta Attending Provider Rosalio Ashley Attending Provider Dr. Rita Mathew MD Attending Provider Dr. Rita Mathew MD Referring Provider Dr. Parish Graff DO Primary Care Provider Prerna MONTERROSO, Dr. Callaway Referring Provider Sathya WINDOW/DISTRIBUTION CLERK-C, Aide Attending Provider Dr. Arben Orourke DO Emergency Provider [phone] HALKO DO, PARISH Primary Care Unavailable HALKO DO, PARISH Attending Unavailable HALKO DO, PARISH Primary Care Unavailable HALKO DO, PARISH Attending Unavailable HALKO DO, PARISH Primary Care Unavailable HALKO DO, PARISH Attending Unavailable HALKO DO, PARISH Primary Care Unavailable HALKO DO, PARISH Attending Unavailable HALKO DO, PARISH Primary Care Unavailable HALKO DO, PARISH Attending Unavailable EAGLE MONTERROSO, DR FRANK Sheldon Attending Unavailabl e HALKO DO, PARISH Primary Care Unavailable GARY KRUSE DO Attending Unavailable HALKO DO, PARISH Primary Care Unavailable JUJU WOODWARD, JOHN Attending Unavailable HALKO DO, PARISH Primary Care Unavailable JUJU WOODWARD, JOHN Attending Unavailable HALKO DO, PARISH Primary Care Unavailable JUJU WOODWARD, JOHN Consulting Unavailable HALKO DO, PARISH Primary Care Unavailable HALKO DO, PARISH Attending Unavailable HALKO DO, PARISH Primary Care Unavailable HALKO DO, PARISH Attending Unavailable HALKO DO, PARISH Attending Unavailable HALKO DO, PARISH Primary Care Unavailable HALKO DO, PARISH Primary Care Unavailable HALKO DO, PARISH Attending Unavailable Halko, Parish Referring Unavailable Rosalio Horta Attending Unavailable Halko, Parish Primary Care Unavailable Halko, Parish Referring Unavailable Santa Hawthorne Attending Unavailable Halko, Parish Primary Care Unavailable Halko, Parish Primary Care Unavailable Halko, Parish Referring Unavailable Sathya WINDOW/DISTRIBUTION CLERK, Aide Attending Unavailable Santa Hawthorne Attending Unavailable Halko, Parish Primary Care Unavailable Halko, Parish Referring Unavailable Halko, Parish Primary Care Unavailable Halko, Parish Referring Unavailable Yomairakarus, Mansour Attending Unavailable Halko, Parish Primary Care Unavailable Halko, Parish Referring Unavailable Sophia Madison Attending Unavailabl e Halko, Parish Primary Care Unavailable Halko, Parish Referring Unavailable Yomairakarus, Mansour Attending Unavailable Halko, Parish Primary Care Unavailable Arben Orourke Attending Unavailable Santa Hawthorne Attending Unavailable Halko, Parish Primary Care Unavailable Santa Hawthorne Referring Unavailable Halko, Parish Primary Care Unavailable Santa Hawthorne Attending Unavailable Santa Hawthorne Referring Unavailable Halko, Parish Primary Care Unavailable Yomairakarus, Mansour Referring Unavailable Rhys Mathewour Attending Unavailable Santa Hawthorne Referring Unavailable Santa Hawthorne Attending Unavailable Halko, Parish Primary Care Unavailable Halko, Parish Primary Care Unavailable Halko, Parish Referring Unavailable Yomairakarus, Mansour Attending Unavailable Halko, Parish Referring Unavailable Halko, Parish Primary Care Unavailable Sathya WINDOW/DISTRIBUTION CLERK, Aide Attending Unavailable Halko, Parish Primary Care Unavailable Santa Hawthorne Consulting Unavailable Alex Mejia Attending Unavailable Santa Hawthorne Referring Unavailable Halko, Parish Primary Care Unavailable Camelia Corral Attending Unavailable Alex Mejia Attending Unavailable Santa Hawthorne Attending Unavailable Parish Graff Primary Care Unavailable Parish Graff Referring Unavailable Dr. Parish Graff DO Primary Care Physician Dr. Parish Graff DO Referring Provider Rosalio Ashley Attending Physician [phone] Sathya SHERWOOD-CAide Attending Physician [phone] Arben Orourke DO Attending Physician Dr. Arben Orourke DO Emergency Department Physic earl Dr. Rita Mathew MD Attending Physician [phone] Dr. Rita Mathew MD Referring Provider Allergies Allergy Classification Reported Allergen(s) Allergy Type Date of Onset Reaction(s) Facility (20 sources) Purified Protein Derivative of Tuberculin; Translations: [tuberculin purified protein derivative] Drug Allergy 2 Swelling, Unknown (qualifier value) [facility] (20 sources) Venom-Honey Bee Drug Allergy 2 Swelling [facility] (4 sources) bumble bee stings Allergy to substance 2 Anaphylaxis [facility] Work Phone: (16 sources) Bee/Wasp/Ant venom Drug allergy Swelling (morphologic abnormality), Unknown (qualifier value) [facility] (6 sources) Honey bee venom Allergy to substance [address] [facility] (6 sources) Tuberculin, Ppd Allergy to substance [address] [facility] (1 source) tuberculin, purified protein deriva Drug allergy (disorder) 5 [facility] (1 source) bee venom protein (honey bee) Drug allergy (disorder) 5 [facility] Medications Current Medications Medication Drug Class(es) Dates Sig (Normalized) Sig (Original) acetaminophen 500 mg oral capsule (20 sources) Start: 09-13-2022 acetaminophen 500 mg oral capsule Dose : 1,000 mg = 2 cap(s), Oral, q4h, PRN for fever, # 120 cap(s), 0 Refill(s) Start Date: 09/13/22 Status: Ordered Medication Dispense Status: Completed Quantity: 120.0 Unit: cap(s) Total Allowed Fills: 1 Fills Dispensed: 0 Start: 10-21-2021 End: 02-24-2022 take 2 capsules [...] surgery 09-21-21 Take 2 tablets by mo [facility] four times daily for 14 days. acetaminophen 325 mg / HYDROcodone bitartrate 5 mg oral tablet (20 sources) Opioid Agonist Start: 02-27-2024 End: 03-01-2024 Poplar 325- 5 mg oral tablet Dose = 1 tab(s), Oral, q4h, PRN Pain, scale 1-6, X 3 day(s), # 7 tab(s), 0 Refill(s), Pharmacy: [facility], Acute post-operative pain, 173, cm, 02/27/24 9:05:00 EST, Height, 173, kg, 02/27/24 9:05:00 EST, Dosing Weight Start Date: 02/27/24 Stop Date: 03/01/24 Status: Ordered Start: 04-07-2023 take 1 tablet by clive th every six hours as needed HYDROcodone-acetaminophen (Poplar) 5-325 MG tablet Take 1 tablet by mouth every 6 (six) hours if needed 04/07/2023 Active Start: 04-07-2023 End: 05-07-2023 take 1 tablet by mouth once daily at bedtime as needed for pain Poplar 325- 5 mg oral tablet Dose = 1 tab(s), Oral, qHS, PRN for pain, fill on or after 04/07/2023, X 30 day(s), # 30 tab(s), 0 Refill(s), Pharmacy: [facility], [place], 172.7, cm, 04/07/23 10:41:00 [...] as needed for pain 10 3 0 July 04, 2021 September 09, 2021 8:56am Contusion of back Contusion of unspecified back wall of thorax, initial encounter Start: 07-04-2021 End: 09-09-2021 take 1 tablet by mouth every six hours Hydrocodone-Acetaminophen Discontinued 1 TABLET PO EVERY 6 HOURS 10 3 July 04, 2021 September 09, 2021 7:56am Start: 07-04-2021 End: 09-09-2021 Alcohol Swabs (13 sources) Start: 03-04-2023 Alcohol Swabs See Instructions, dispense 200 EtOH wipes; check blood sugar twice daily (fasting and before bed), 3 refills, dx E16.2, # 200 EA, 3 Refill(s), Pharmacy: [facility], Hypoglycemia, 176.5, cm, 03/04/23 8:32:00 EST, Height, 67.4, kg, 03/04/23 8:32:00 EST, Dosing Weight Start Date: 03/04/23 Status: Ordered Medication Dispense Status: Completed Quantity: 200.0 Unit: EA Total Allowed Fills: 4 Fills Dispensed: 0 Indications: Hypoglycemia, unspecified; Start: 03-04-2023 Alcohol Swabs See Instructions, dispense 200 EtOH wipes; check blood sugar twice daily (fasting and before bed), 3 refills, dx E16.2, # 200 EA, 3 Refill(s), Pharmacy: [facility], Hypoglycemia, 176.5, cm, 03/04/23 8:32:00 EST, Height, 67.4, kg, 03/04/23 8:32:00 EST, Dosing Weight Start Date: 03/04/23 Status: Ordered Quantity: 200.0 Unit: EA Repeat number: 4 Indications: Hypoglycemia, unspecified; Start: 03-04-2023 Alcohol Swabs See Instructions, dispense 200 EtOH wipes; check blood sugar twice daily (fasting and before bed), 3 refills, dx E16.2, # 200 EA, 3 Refill(s), Pharmacy: [facility], Hypoglycemia, 176.5, cm, 03/04/23 8:32:00 EST, Height, 67.4, kg, 03/04/23 8:32:00 EST, Dosing Weight Start Date: 03/04/23 Status: Ordered Quantity: 200.0 Unit: EA Repeat number: 4 Indication: Hypoglycemia, unspecified Start: 03-04-2023 Alcohol Swabs See Instructions, dispense 200 EtOH wipes; check blood sugar twice daily (fasting and before bed), 3 refills, dx E16.2, # 200 EA, 3 Refill(s), Pharmacy: [facility], Hypoglycemia, 176.5, cm, 03/04/23 8:32:00 [...] tablet (20 sources) HMG-CoA Reductase Inhibitor Start: 04-07-2023 take 1 tablet by mouth once daily Start: 02-10-2023 atorvastatin 8 0 mg oral tablet Dose : 80 mg = 1 tab(s), Oral, qDay, increased therapy, # 90 tab(s), 1 Refill(s), Pharmacy: [facility], 176.5, cm, 02/10/23 9:21:00 EST, Height, [...] 0 Refill(s), 10/09/24 10:01:00 AM EDT, Pharmacy: [facility], [place], 175.5, cm, 10/04/24 9:29:00 EDT, Height, 61.3, kg, 10/04/24 9:29:00 EDT, Dosing Weight Start Date: 10/04/24 Stop Date: 10/09/24 Status: Ordered Quantity: 6.0 Unit: tab(s) Repeat number: 1 B 100 Complex oral tablet (15 sources) Start: 07-06-19 End: 01-02-20 take 1 tablet by mouth once daily B 100 Complex oral tablet Dose = 1 tab(s), Oral, Daily, # 90 tab(s), 1 Refill(s), Pharmacy: [facility], [place], 172, cm, 07/05/24 14:11:00 EDT, Height, kg, 07/05/24 14:11:00 EDT, Dosing Weight Start Date: 07/05/24 Stop Date: 01/01/25 Status: Ordered Medication Dispense Status: Completed Quantity: 90.0 Unit: tab(s) Total Allowed Fills: 2 Fills Dispensed: 0 Start: 07-05-2024 End: 01-01-2025 take 1 tablet by mouth once daily B 100 Complex oral tablet Dose = 1 tab(s), Oral, Daily, # 90 tab(s), 1 Refill(s), Pharmacy: [facility], [place], 172, cm, 07/05/24 14:11:00 EDT, Height, kg, 07/05/24 14:11:00 EDT, Dosing Weight Start Date: 07/05/24 Stop Date: 01/01/25 Status: Ordered Quantity: 90.0 Unit: tab(s) Repeat number: 2 Start: 03-19-2024 End: 09-15-2024 take 1 tablet by mouth once daily B 100 Complex oral tablet Dose = 1 tab(s), Oral, Daily, # 90 tab(s), 1 Refill(s), Pharmacy: [facility] [place], 172, cm, 03/19/24 13:01:00 EST, Height, kg, 03/19/24 13:01:00 EST, Dosing Weight Start Date: 03/19/24 Stop Date: 09/15/24 Status: Ordered Quantity: 90.0 Unit: tab(s) Repeat number: 2 Start: 04-07-2023 End: 10-04-2023 take 1 tablet by mouth once daily B 100 Complex oral tablet Dose = 1 tab(s), Oral, Daily, # 90 tab(s), 1 Refill(s), Pharmacy: [place] [id number], 172.7, cm, 04/07/23 10:41:00 EST, Height, kg, 04/07/23 10:41:00 EST, Dosing Weight Start Date: 04/07/23 Stop Date: 10/04/23 Status: Ordered Start: 01-11-2023 take 1 tablet by clive th once daily B 100 Complex oral tablet Dose = 1 tab(s), Oral, Daily, # 100 tab(s), 0 Refill(s) Start Date: 01/11/23 Status: Ordered Blood Glucose Test Machine (13 sources) Start: 03-04-2023 Blood Glucose Test Machine See Instructions, dx E16.2 check blood sugar twice daily, # 1 EA, 0 Refill(s), Pharmacy: [place] [address], Hypoglycemia, 176.5, cm, 03/04/23 8:32:00 EST, Height, 67.4, kg, 03/04/23 8:32:00 EST, Dosing Weight Start Date: 03/04/23 Status: Ordered Medication Dispense Status: Completed Quantity: 1.0 Unit: EA Total Allowed Fills: 1 Fills Dispensed: 0 Indications: Hypoglycemia, unspecified; Start: 03-04-2023 Blood Glucose Test Machine See Instructions, dx E16.2 check blood sugar twice daily, # 1 EA, 0 Refill(s), Pharmacy: [place] [address], Hypoglycemia, 176.5, cm, 03/04/23 8:32:00 EST, Height, 67.4, kg, 03/04/23 8:32:00 EST, Dosing Weight Start Date: 03/04/23 Status: Ordered Quantity: 1.0 Unit: EA Repeat number: 1 Indications: Hypoglycemia, unspecified; Start: 03-04-2023 Blood Glucose Test Machine See Instructions, dx E16.2 check blood sugar twice daily, # 1 EA, 0 Refill(s), Pharmacy: [facility], Hypoglycemia, 176.5, cm, 03/04/23 8:32:00 EST, Height, 67.4, kg, 03/04/23 8:32:00 EST, Dosing Weight Start Date: 03/04/23 Status: Ordered Quantity: 1.0 Unit: EA Repeat number: 1 Indication: Hypoglycemia, unspecified Start: 03-04-2023 Blood Glucose Test Machine See Instructions, dx E16.2 check blood sugar twice daily, # 1 EA, 0 Refill(s), Pharmacy: [facility], Hypoglycemia, 176.5, cm, 03/04/23 8:32:00 [...] 2x/day, # 14,220 mL, 5 Refill(s), Pharmacy: [facility], 176.5, cm, 01/11/23 7:59:00 EDT, Height, 64.5, kg, 01/11/23 7:59:00 EDT, Dosing Weight Start Date: 01/12/23 Stop Date: 07/11/23 Status: Ordered Crtvnglfnx-Ngqmsnsm-Asftoags ol (4 sources) Corticosteroid, beta2-Adrenergic Agonist Start: 07-18-2024 Start: 07-18-2024 Budesonide-Gly copyr-Formoterol (Breztri Aerosphere) 160-9-4.8 mcg/actuation HFA aerosol inhaler Active 2 NMA INHALATION TWICE A DAY 10.7 July 18, 2024 12:00am busPIRone hydrochloride 10 m g oral tablet (13 sources) Start: 11-01-2024 busPIRone 10 m g oral tablet Dose : 10 mg = 1 tab(s), Oral, TID, PRN stress, # 90 tab(s), 0 Refill(s), Pharmacy: [facility], [place], 175.5, cm, 11/01/24 13:19:00 EDT, Height, kg, 11/01/24 13:19:00 EDT, Dosing Weight Start Date: 11/01/24 Status: Ordered Medication Dispense Status: Completed Quantity: 90.0 Unit: tab(s) Total Allowed Fills: 1 Fills Dispensed: 0 Start: 07-05-2024 busPIRone 10 m g oral tablet Dose : 10 mg = 1 tab(s), Oral, TID, PRN stress, # 90 tab(s), 0 Refill(s), Pharmacy: [facility], [place], 172, cm, 07/05/24 14:11:00 EDT, Height, kg, 07/05/24 14:11:00 EDT, Dosing Weight Start Date: 07/05/24 Status: Ordered Quantity: 90.0 Unit: tab(s) Repeat number: 1 Start: 12-30-2023 End: 03-13-2024 take 1 tablet by mouth three times daily Buspirone 10 mg tablet Discontinued 10 mg PO THREE TIMES A DAY March 12, 2024 1:00am March 13, 2024 11:13am calcium ascorbate 500 mg ora l tablet (20 sources) Start: 04-14-2022 End: 06-16-2022 take 1 tablet by mouth once daily Start: 10-07-2021 take 500 mg by mouth [...] 500 mg PO EVERY 6 HOURS 12 September 06, 2022 12:00am September 10, 2022 3:48pm Start: 12-30-2015 End: 08-01-2017 take 1 capsule by mouth twice daily Cephalexin 500 MG capsule Discontinued 500 mg PO TWICE A DAY 10 December 30, 2015 12:00am August 01, 2017 [...] Start: 09-09-2021 take 1 tablet by clive th once daily cyclobenzaprine (FLEXERIL) 5 mg tablet [...] home health clinician.] Daily Tin oral tablet (16 sources) Start: 07-05-2024 End: 01-01-2025 take 1 tablet by mouth once daily Daily Tin oral tablet Dose = 1 tab(s), Oral, Daily, # 90 tab(s), 1 Refill(s), Pharmacy: [facility], [place], 172, cm, 07/05/24 14:11:00 EDT, Height, kg, 07/05/24 14:11:00 EDT, Dosing Weight Start Date: 07/05/24 Stop Date: 01/01/25 Status: Ordered Medication Dispense Status: Completed Quantity: 90.0 Unit: tab(s) Total Allowed Fills: 2 Fills Dispensed: 0 Start: 07-05-2024 End: 01-01-2025 take 1 tablet by mouth once daily Daily Tin oral tablet Dose = 1 tab(s), Oral, Daily, # 90 tab(s), 1 Refill(s), Pharmacy: [facility], [place], 172, cm, 07/05/24 14:11:00 EDT, Height, kg, 07/05/24 14:11:00 EDT, Dosing Weight Start Date: 07/05/24 Stop Date: 01/01/25 Status: Ordered Quantity: 90.0 Unit: tab(s) Repeat number: 2 Start: 03-19-2024 End: 09-15-2024 take 1 tablet by mouth once daily Daily Tin oral tablet Dose = 1 tab(s), Oral, Daily, # 90 tab(s), 1 Refill(s), Pharmacy: [facility] [place], 172, cm, 03/19/24 13:01:00 EST, Height, kg, 03/19/24 13:01:00 EST, Dosing Weight Start Date: 03/19/24 Stop Date: 09/15/24 Status: Ordered Quantity: 90.0 Unit: tab(s) Repeat number: 2 Start: 08-04-2023 End: 01-31-2024 take 1 tablet by mouth once daily Daily Tin oral tablet Dose = 1 tab(s), Oral, Daily, # 90 tab(s), 1 Refill(s), Pharmacy: [facility], 172.7, cm, 08/04/23 11:04:00 EDT, Height, kg, 08/04/23 11:04:00 EDT, Dosing Weight Start Date: 08/04/23 Stop Date: 01/31/24 Status: Ordered Start: 04-07-2023 End: 10-04-2023 take 1 tablet by mouth once daily Daily Tin oral tablet Dose = 1 tab(s), Oral, Daily, # 90 tab(s), 1 Refill(s), Pharmacy: [facility], 172.7, cm, 04/07/23 10:41:00 EST, [...] inhlaer, # 1 EA, 0 Refill(s), Pharmacy: [facility] [place], 175.5, cm, 10/04/24 9:29:00 EDT, Height, 61.3, kg, 10/04/24 9:29:00 EDT, Dosing Weight Start Date: 10/04/24 Status: Ordered Medication Dispense Status: Completed Quantity: 1.0 Unit: EA Total Allowed Fills: 1 Fills Dispensed: 0 Start: 10-04-2024 DME MISCellane ous See Instructions, dx R06.2 dispense one spacer with for inhlaer, # 1 EA, 0 Refill(s), Pharmacy: [facility] [place], 175.5, cm, 10/04/24 9:29:00 EDT, Height, 61.3, kg, 10/04/24 9:29:00 EDT, Dosing Weight Start Date: 10/04/24 Status: Ordered Quantity: 1.0 Unit: EA Repeat number: 1 Start: 02-16-2024 DME MISCellane ous See Instructions, dx I87.2 and I89.0 dispense 4 pairs of close toed knee high compression stockings 20-30 mmHg, # 4 EA, 2 Refill(s), 64.8 Start Date: 02/16/24 Status: Ordered Medication Dispense Status: Completed Quantity: 4.0 Unit: EA Total Allowed Fills: 3 Fills Dispensed: 0 Start: 02-16-2024 DME MISCellane ous See Instructions, [...] readout., # 1 EA, 0 Refill(s), Pharmacy: [facility], 176.5, cm, 03/04/23 8:32:00 EST, Height, 67.4, kg, 03/04/23 8:32:00 EST, Dosing Weight Start Date: 03/04/23 Status: Ordered Medication Dispense Status: Completed Quantity: 1.0 Unit: EA Total Allowed Fills: 1 Fills Dispensed: 0 Start: 03-04-2023 DME MISCellane ous See Instructions, dx I10 dispense one automated upper arm spygmomanometer with supplies and digital readout., # 1 EA, 0 Refill(s), Pharmacy: [facility], 176.5, cm, 03/04/23 8:32:00 EST, Height, 67.4, kg, 03/04/23 8:32:00 EST, Dosing Weight Start Date: 03/04/23 Status: Ordered Quantity: 1.0 Unit: EA Repeat number: 1 Start: 03-04-2023 DME MISCellane ous See Instructions, dx I10 dispense one automated upper arm spygmomanometer with supplies and digital readout., # 1 EA, 0 Refill(s), Pharmacy: [facility], 176.5, cm, 03/04/23 8:32:00 EST, Height, 67.4, kg, 03/04/23 8:32:00 EST, Dosing Weight Start Date: 03/04/23 Status: Ordered doxycycline hyclate 100 mg oral capsule (15 sources) Tetracycline-class Drug Start: 09-21-2024 End: 09-28-2024 [...] Discontinued 100 mg PO TWICE A DAY September 07, 2022 12:00am November 01, 2022 9:37pm [id number] 0.3 ml EPINEPHrine 1 mg/ml auto-injector (20 sources) alpha-Adrenergic Agonist, beta-Adrenergic Agonist, Catecholamine Start: 03-12-2024 Start: 02-12-2023 EPINEPHrine (E pipen) 0.3 MG/0.3ML injection syringe Inject 1 Syringe as directed 1 (one) time 02/12/2023 Active Start: 02-10-2023 EpiPen 2-Sebastian 0 .3 mg injectable kit Dose : 0.3 mg =, Subcutaneous, AsDirected, PRN Allergic reaction, # 1 kit(s), 1 Refill(s), Pharmacy: [place] [address], 176.5, cm, 02/10/23 9:21:00 EST, Height, kg, 02/10/23 9:21:00 EST, Dosing Weight Start Date: 02/10/23 Status: Ordered Medication Dispense Status: Completed Quantity: 1.0 Unit: kit(s) Total Allowed Fills: 2 Fills Dispensed: 0 Start: 01-12-2023 EpiPen 2-Sebastian 0 .3 mg injectable kit Dose : 0.3 mg =, Subcutaneous, AsDirected, PRN Allergic reaction, # 1 kit(s), 1 Refill(s), Pharmacy: [facility], 176.5, cm, 01/11/23 7:59:00 EDT, Height, kg, 01/11/23 7:59:00 EDT, Dosing Weight Start Date: 01/12/23 Status: Ordered escitalopram 20 mg oral tablet (20 sources) Serotonin Reuptake Inhibitor Start: 11-01-2024 escitalopram 20 mg oral tablet Dose : 20 mg = 1 tab(s), Oral, qDay, # 90 tab(s), 1 Refill(s), Pharmacy: [facility], [place], 175.5, cm, 11/01/24 13:19:00 EDT, Height, kg, 11/01/24 13:19:00 EDT, Dosing Weight Start Date: 11/01/24 Status: Ordered Medication Dispense Status: Completed Quantity: 90.0 Unit: tab(s) Total Allowed Fills: 2 Fills Dispensed: 0 Start: 07-05-2024 escitalopram 2 0 mg oral tablet Dose : 20 mg = 1 tab(s), Oral, qDay, # 90 tab(s), 1 Refill(s), Pharmacy: [facility], [place], 172, cm, 07/05/24 14:11:00 EDT, Height, kg, 07/05/24 14:11:00 EDT, Dosing Weight Start Date: 07/05/24 Status: Ordered Quantity: 90.0 Unit: tab(s) Repeat number: 2 Start: 03-20-2023 escitalopram 2 0 mg oral tablet Dose : 20 mg = 1 tab(s), Oral, qDay, # 90 tab(s), 1 Refill(s), Pharmacy: [facility] [place], 172, cm, 03/19/24 13:01:00 EST, Height, kg, 03/19/24 13:01:00 EST, Dosing Weight Start Date: 03/19/24 Status: Ordered Quantity: 90.0 Unit: tab(s) Repeat number: 2 Start: 02-10-2023 escitalopram 2 0 mg oral tablet Dose : 20 mg = 1 tab(s), Oral, qDay, # 90 tab(s), 1 Refill(s), Pharmacy: [facility], 176.5, cm, 02/10/23 9:21:00 EST, Height, kg, 02/10/23 9:21:00 EST, Dosing Weight Start Date: 02/10/23 Status: Ordered Start: 01-12-2023 escitalopram 2 0 mg oral tablet Dose : 20 mg = 1 tab(s), Oral, qDay, # 90 tab(s), 0 Refill(s), Pharmacy: [facility], 176.5, cm, 01/11/23 7:59:00 EDT, Height, kg, 01/11/23 7:59:00 EDT, Dosing Weight Start Date: 01/12/23 Status: Ordered Start: 11-24-2022 End: 12-15-2022 take 1 tablet by mouth once daily FeroSul 325 mg (65 mg elemen deejay [...] 0 Refill(s) Start Date: 09/13/22 Status: Ordered Medication Dispense Status: Completed Quantity: 90.0 Unit: tab(s) Total Allowed Fills: 1 Fills Dispensed: 0 Start: 10-07-2021 End: 06-16-2022 take 1 tablet [...] 1 tablet by clive th once daily. folic acid 1 mg oral tablet (20 sources) Start: 02-05-2022 End: 04-30-2025 take 1 tablet by mouth once daily Start: 09-29-2021 End: 01-06-2022 take 1 tablet by mouth once daily Folic Acid 1 mg tablet Discontinued 1 mg PO DAILY 90 October 21, 2021 1:08pm January 06, 2022 1:43pm Comment on above: Take 1 tablet by clive once daily. front wheeled walker (5 sources) Start: 11-26-2022 front wheeled walker Active 0 .Route .MEDSUPPLY 1 November 26, 2022 12:00am Cerebrovascular accident (CVA) Essential tremor Seizure Cerebral infarction, unspecified Essential tremor Unspecified convulsions CVA I63.9 ,Seizure R56.9 ,Essential Tremor G25.0 As directed Start: 11-26-2022 front wheeled walker Active 0 .Route .MEDSUPPLY 1 November 25, 2022 11:00pm As directed 12 hr guaiFENesin 600 mg extended release oral tablet (2 sources) Start: 10-04-2024 End: 04-30-2025 Mucinex 600 mg oral tablet, extended release Dose : 600 mg = 1 tab(s), Oral, q12h, X 90 day(s), # 180 tab(s), 1 Refill(s), 04/30/25 2:19:00 PM EST, Pharmacy: [facility], [place], 175.5, cm, 11/01/24 13:19:00 EDT, Height, kg, 11/01/24 13:19:00 EDT, Dosing Weight Start Date: 11/01/24 Stop Date: 04/30/25 Status: Ordered Medication Dispense Status: Completed Quantity: 180.0 Unit: tab(s) Total Allowed Fills: 2 Fills Dispensed: 0 lamoTRIgine 100 mg oral tablet (20 sources) Mood Stabilizer, Anti-epileptic Agent Start: 05-10-2022 End: 04-30-2025 take 1 tablet by mouth twice daily Start: 05-10-2022 End: 09-09-2022 take 0.5 tablet by mouth once daily in the morning, then take 1 tablet by mouth once daily in the evening, then take 1 tablet by mouth twice daily Lamotrigine 100 mg tablet Discontinued 100 mg .ROUTE .COMPLEX 60 May 10, 2022 1:00am September 09, 2022 7:33pm Take 1/2 tablet PO every morning and 1 tablet every evening for 1 week then 1 tablet twice daily thereafter. Start: 10-21-2021 End: 05-10-2022 take 2 tablets by mouth twice daily Lamotrigine (Lamictal) 25 mg tablet Discontinued 50 mg PO TWICE A DAY 120 October 21, 2021 1:08pm December 17, 2021 8:41pm Start: 02-12-2021 End: 10-07-2021 take 2 tablets by mouth twice daily Lamotrigine 25 mg tablet Discontinued 50 mg PO TWICE A DAY 120 August 11, 2021 2:12pm October 07, 2021 [...] 500 mg oral tablet (20 sources) Start: 11-02-2022 End: 04-30-2025 take 1 tablet by mouth twice daily Start: 02-14-2018 End: 08-21-2018 take 1 tablet [...] 08-02-2017 levothyroxine sodium 0.025 mg oral tablet (3 sources) l-Thyroxine Start: 11-01-2024 levothyroxine 25 mcg (0.025 mg) oral tablet Dose : 25 mcg = 1 tab(s), Oral, qDayAC, as a single daily dose before breakfast with plenty of water on an empty stomach wait 30 minutes before ingesting anything else, # 90 tab(s), 0 Refill(s), Pharmacy: [facility], 175.5, cm, 11/01/24 13:19:00 EDT, Height, kg, 11/01/24 13:19:00 EDT, Dosing Weight Start Date: 11/01/24 Status: Ordered Medication Dispense Status: Completed Quantity: 90.0 Unit: tab(s) Total Allowed Fills: 1 Fills Dispensed: 0 Start: 08-31-2024 levothyroxine 25 mcg (0.025 mg) oral tablet Dose : 25 mcg = 1 tab(s), Oral, qDayAC, as a single daily dose before breakfast with plenty of water on an empty stomach wait 30 minutes before ingesting anything else, # 90 tab(s), 0 Refill(s), Pharmacy: [facility] [place], cm, 08/09/24 9:35:00 EDT, Height, kg, 08/09/24 9:35:00 EDT, Dosing Weight Start Date: 08/31/24 Status: Ordered Quantity: 90.0 Unit: tab(s) Repeat number: 1 LORazepam 1 mg oral tablet (11 sources) Benzodiazepine Start: 01-12-2023 Ativan 1 mg [...] 1 Refill(s), 10/04/23 11:04:00 AM EDT, Pharmacy: [facility], 172.7, cm, 04/07/23 10:41:00 EST, Height, kg, 04/07/23 10:41:00 EST, Dosing Weight Start Date: 04/07/23 Stop Date: 10/04/23 Status: Ordered Start: 01-11-2023 magnesium oxid e 400 mg oral capsule Dose : 400 mg = 1 cap(s), Oral, qDay, # 75 cap(s), 0 Refill(s) Start Date: 01/11/23 Status: Ordered Start: 09-29-2021 End: 04-30-2025 take 1 tablet by mouth once daily Magnesium Oxide 400 mg (241.3 mg magnesium) tablet Discontinued 400 mg PO DAILY 90 October 21, 2021 1:08pm March 30, 2022 5:43pm Comment on above: Take 1 tablet by clive once daily. 24 hr metoprolol succinate 25 mg extended release oral tablet (20 sources) beta-Adrenergic Millie Start: 07-28-2023 take 2 tablets by mouth once daily Start: 07-28-2023 take 2 tablets by mo [facility] once daily Metoprolol Succinate 25 mg tablet extended release 24 hr Active 12.5 mg PO daily July 28, 2023 12:00am Start: 03-16-2023 End: 04-30-2025 metoprolol succinate 25 mg o ral TABLET extended release Dose : 12.5 mg = 0.5 tab(s), Oral, qDay, Do not crush or chew (controlled release), # 45 tab(s), 1 Refill(s), Pharmacy: [facility] [place], 175.5, cm, 11/01/24 13:19:00 EDT, Height, kg, 11/01/24 13:19:00 EDT, Dosing Weight Start Date: 11/01/24 Stop Date: 04/30/25 Status: Ordered Medication Dispense Status: Completed Quantity: 45.0 Unit: tab(s) Total Allowed Fills: 2 Fills Dispensed: 0 Start: 09-28-2021 End: 10-28-2021 take 1 tablet [...] tablet 0 09/11/2021 Suspended Start: 05-27-2021 End: 06-02-2021 take 2 tablets by mouth once daily Metoprolol Succinate 25 mg tablet extended release 24 hr Discontinued 12.5 mg PO DAILY 45 4 May 27, 2021 12:50pm June 02, 2021 3:43pm Start: 05-27-2021 End: 11-24-2021 take 1 tablet by mouth once daily Metoprolol Succinate 25 mg tablet extended release 24 hr Discontinued 25 mg PO DAILY 90 4 June 02, 2021 3:43pm November 24, 2021 3:34pm Start: 05-27-2021 End: 06-02-2021 take 12.5 mg [...] 12 hours. mirtazapine 45 mg oral tablet (13 sources) Start: 07-05-2024 End: 01-01-2025 mirtazapine 45 mg oral tablet Dose : 45 mg = 1 tab(s), Oral, qHS, # 90 tab(s), 1 Refill(s), Pharmacy: [facility], [place], 172, cm, 07/05/24 14:11:00 EDT, Height, kg, 07/05/24 14:11:00 EDT, Dosing Weight Start Date: 07/05/24 Stop Date: 01/01/25 Status: Ordered Medication Dispense Status: Completed Quantity: 90.0 Unit: tab(s) Total Allowed Fills: 2 Fills Dispensed: 0 Start: 05-10-2024 mirtazapine 45 mg oral tablet Dose : 45 mg = 1 tab(s), Oral, qHS, new dose, # 30 tab(s), 1 Refill(s), Pharmacy: [facility], [place], 172, , 05/10/24 13:51:00 EST, Height, kg, 05/10/24 13:51:00 EST, Dosing Weight Start Date: 05/10/24 Status: Ordered Quantity: 30.0 Unit: tab(s) Repeat number: 2 Start: 10-13-2023 End: 04-10-2024 take 1 tablet by mouth once daily Multiple Vitamin (multivitamin) capsule (6 sources) take 1 capsule by mouth in the morning Multiple Vitamin (multivitamin) capsule Take 1 capsule by mouth in the morning. Active Multivitamin With Folic Acid (Daily-Tin (With Folic Acid)) 400 mcg tablet (20 sources) Start: 06-16-2022 Start: 06-16-2022 Multivitamin W ith Folic Acid (Daily-Tin (With Folic Acid)) 400 [...] daily for 5 days. nitroglycerin 0.4 mg subling ual tablet (20 sources) Nitrate Vasodilator Start: 07-28-2023 End: 04-10-2024 Start: 01-12-2023 End: 04-12-2023 nitroglycerin 0.3 mg subling ual tablet Dose : 0.3 mg = 1 tab(s), Sublingual, q5min, PRN for chest pain, # 100 tab(s), 2 Refill(s), Pharmacy: [facility], 176.5, cm, 01/11/23 7:59:00 EDT, Height, kg, 01/11/23 7:59:00 EDT, Dosing Weight Start Date: 01/12/23 Stop Date: 04/12/23 Status: Ordered Medication Dispense Status: Completed Quantity: 100.0 Unit: tab(s) Total Allowed Fills: 3 Fills Dispensed: 0 Start: 04-16-2021 End: 01-01-2022 Nitroglycerin (Nitrostat) 0. [...] 15 minutes as needed for chest pain 25 3 May 29, 2021 12:54pm June 02, 2021 3:35pm do not exceed 3 doses per episode Start: 03-03-2018 End: 09-26-2019 Nitroglycerin 0.4 mg tablet, sublingual Discontinued 0.4 mg SL every 5 to 15 minutes as needed for chest pain 25 3 March 03, 2018 1:00am September 26, 2019 2:14pm until response; do not exceed 3 doses per episode Comment on above: Dissolve 1 tablet un megan the tongue every 5 minutes as needed for Chest Pain. May of three doses. pantoprazole 40 mg delayed release oral tablet (20 sources) Proton Pump Inhibitor Start: 3 End: 6 take 1 tablet by mouth once daily perflutren lipid microspheres 1.3 mL in NaCl (PF) 0.9% 10 mL injection (DEFINITY) (15 sources) Start: 2 End: 3 perflutren lipid microspheres 1.3 mL in NaCl (PF) 0.9% 10 mL injection (DEFINITY) pramipexole dihydrochloride 0.125 mg oral tablet (19 sources) Nonergot Dopamine Agonist Start: 3 End: 5 take 1 tablet by mouth three times daily Start: 01-12-2023 pramipexole 0. 125 mg oral tablet Dose : 0.125 mg = 1 tab(s), Oral, TID, # 90 tab(s), 1 Refill(s), Pharmacy: [facility], 176.5, cm, 01/11/23 7:59:00 [...] 315 tablet 1 04/19/2024 Active Start: 04-05-2024 Start: 04-29-2023 End: 04-19-2024 primidone (Mysoline) 50 [...] mg PO THREE TIMES A DAY 180 May 10, 2022 8:09pm September 05, 2022 7:31pm tremor Start: 04-16-2021 End: 05-10-2022 take 1 tablet by mouth twice daily Primidone 50 mg tablet Discontinued 75 mg PO TWICE A DAY 90 December 17, 2021 8:33pm May 10, 2022 [...] twice daily. Sennosides (Senna) 8.6 mg tablet (3 sources) Start: 03-12-2024 take 1 tablet by mouth once daily Sennosides (Senna) 8.6 mg tablet Active 8.6 mg PO daily March 12, 2024 1:00am sennosides, residential 8.6 mg oral tablet (20 sources) Start: 04-07-2023 End: 04-30-2025 take 1 tablet by mouth once daily Start: 01-11-2023 senna (sennosi zoltan) 8.6 mg [...] qDay, # 90 cap(s), 0 Refill(s), Pharmacy: [facility] [place], 175.5, cm, 08/09/24 9:35:00 EDT, Height, kg, 08/09/24 9:35:00 EDT, Dosing Weight Start Date: 08/09/24 Status: Ordered Quantity: 90.0 Unit: cap(s) Repeat number: 1 thiamine 100 mg oral tablet (20 sources) Start: 09-13-2022 End: 04-30-2025 take 1 tablet by mouth twice daily Start: 09-28-2021 End: 12-22-2022 take 1 tablet by mouth three times daily Thiamine Hcl (Vitamin B1) 100 mg tablet Discontinued 100 mg PO THREE TIMES A DAY 90 June 16, 2022 8:22am December 22, 2022 [...] 0 Refill(s) Start Date: 01/11/23 Status: Ordered Medication Dispense Status: Completed Quantity: 90.0 Unit: tab(s) Total Allowed Fills: 1 Fills Dispensed: 0 Start: 01-11-2023 Vitamin C 500 mg oral [...] 01, 2017 5:30pm Start: 12-30-2015 End: 08-01-2017 albuterol MDI (90 mcg/inh) CFC free inhalation aerosol (2 sources) Start: 11-01-2024 End: 12-01-2024 take 2 puff(s) by inhalation every four hours albuterol MDI (90 mcg/inh) CFC free inhalation aerosol 2 puff(s), Inhalation, q4h, # 18 gram(s), 0 Refill(s), Pharmacy: [facility] [place], 175.5, cm, 11/01/24 13:19:00 EDT, Height, kg, 11/01/24 13:19:00 EDT, Dosing Weight Start Date: 11/01/24 Stop Date: 12/01/24 Status: Ordered Medication Dispense Status: Completed Quantity: 18.0 Unit: g Total Allowed Fills: 1 Fills Dispensed: 0 Start: 10-04-2024 End: 11-03-2024 take 2 puff(s) by inhalation every four hours albuterol MDI (90 mcg/inh) CFC free inhalation aerosol 2 puff(s), Inhalation, q4h, # 18 gram(s), 0 Refill(s), Pharmacy: [facility] [place], 175.5, cm, 10/04/24 9:29:00 EDT, Height, kg, 10/04/24 9:29:00 EDT, Dosing Weight Start Date: 10/04/24 Stop Date: 11/03/24 Status: Ordered Quantity: 18.0 Unit: g Repeat number: 1 amiodarone hydrochloride 200 mg oral tablet (20 sources) Antiarrhythmic Start: 11-16-2022 End: 02-09-2023 Amiodarone 200 mg tablet Discontinued 100 mg PO DAILY November 18, 2022 4:42pm February 09, 2023 [...] mg tablet Discontinued 100 mg PO DAILY June 18, 2022 2:09pm November 16, 2022 [...] mg / clavulanate 125 mg oral tablet (20 sources) Penicillin-class Antibacterial Start: 02-05-2022 End: 04-08-2022 Amoxicillin-Pot Clavulanate 875-125 mg tablet Discontinued 1 {tbl} PO TWICE A DAY 20 February 05, 2022 12:00am April 08, 2022 3:16pm Start: 02-05-2022 End: 04-08-2022 take 1 tablet by mouth twice daily Amoxicillin-Pot Clavulanate Discontinued 1 TABLET PO TWICE A DAY February 04, 2022 11:00pm April 08, 2022 2:16pm Start: 02-05-2022 End: 04-08-2022 aspirin 81 mg delayed release oral tablet (20 sources) Platelet Aggregation Inhibitor, Nonsteroidal Anti-inflammatory Drug Start: 02-12-2021 End: 04-30-2025 take 1 tablet by mouth once daily Aspirin (Adult Aspirin Regimen) 81 mg tablet,delayed release (DR/EC) Discontinued 81 mg PO DAILY 90 3 October 21, 2021 1:08pm June 16, 2022 11:58am Start: 08-01-2017 End: 09-26-2019 take 1 tablet by mouth once daily Aspirin (Adult Aspirin Regimen) 81 mg tablet,delayed release (DR/EC) Discontinued 81 mg PO daily August 01, 2017 12:00am September 26, 2019 2:13pm heart [facility] pt states he is not currently taking [...] 2019 2:14pm Celebrate Multivitamin oral tablet, chewable (10 sources) Start: 03-19-2024 End: 09-15-2024 take 1 tablet by mouth once daily Celebrate Multivitamin oral tablet, chewable Dose = 1 tab(s), Chewed, qDay, # 90 tab(s), 1 Refill(s), Pharmacy: [facility] [place], 172, cm, 03/19/24 13:01:00 EST, Height, kg, 03/19/24 13:01:00 EST, Dosing Weight Start Date: 03/19/24 Stop Date: 09/15/24 Status: Ordered Medication Dispense Status: Completed Quantity: 90.0 Unit: tab(s) Total Allowed Fills: 2 Fills Dispensed: 0 Start: 03-19-2024 End: 09-15-2024 take 1 tablet by mouth once daily Celebrate Multivitamin oral tablet, chewable Dose = 1 tab(s), Chewed, qDay, # 90 tab(s), 1 Refill(s), Pharmacy: [facility] [place], 172, cm, 03/19/24 13:01:00 EST, Height, kg, 03/19/24 13:01:00 EST, Dosing Weight Start Date: 03/19/24 Stop Date: 09/15/24 Status: Ordered Quantity: 90.0 Unit: tab(s) Repeat number: 2 Start: 04-07-2023 End: 10-04-2023 take 1 tablet by mouth once daily Celebrate Multivitamin oral tablet, chewable Dose = 1 tab(s), Chewed, qDay, # 90 tab(s), 1 Refill(s), Pharmacy: [facility], 172.7, cm, 04/07/23 10:41:00 EST, Height, kg, 04/07/23 10:41:00 EST, Dosing Weight Start Date: 04/07/23 Stop Date: 10/04/23 Status: Ordered clopidogrel 75 mg oral tablet (20 sources) [id number] Platelet Inhibitor Start: 04-16-2021 End: 04-30-2025 take 1 tablet by mouth once daily [...] daily. docusate sodium 50 mg / sennosides, residential 8.6 mg oral tablet (20 sources) Start: [...] Comment on above: Take 1 tablet by [facility] twice daily. doxepin hydrochloride 10 mg oral [...] clinician.] Food Supplemt, Lactose-Reduced (Ensure Original) liquid (5 sources) Start: 12-16-2022 End: 07-28-2023 Food Supplemt, Lactose-Reduced (Ensure Original) liquid Discontinued 0 PO .COMPLEX 60 5 December 16, 2022 12:00am July 28, 2023 2:39pm Protein calorie malnutrition 1 can twice daily orally; Start: 12-16-2022 Food Supplemt, Lactose-Reduced (Ensure Original) liquid Active 0 PO .COMPLEX 60 December 15, 2022 11:00pm 1 can twice daily orally; Food Supplemt, Lactose-Reduced (Ensure) liquid (5 sources) Start: 12-16-2022 End: 12-16-2022 take 1 [...] days. ondansetron 4 mg disintegrating oral tablet (18 sources) Serotonin-3 Receptor Antagonist Start: End: take 1 tablet by mouth every six hours as needed for nausea and vomiting Ondansetron 4 mg tablet,disintegratin g Discontinued 4 mg PO EVERY 6 HOURS as needed for nausea and vomiting 10 0 April 10, 2022 1:00am March 13, 2024 11:12am oseltamivir 75 mg oral capsule (20 sources) Neuraminidase Inhibitor Start: End: take 1 capsule by mouth twice daily Oseltamivir 75 mg capsule Discontinued 75 mg PO TWICE A DAY 10 0 March 22, 2022 1:00am April 08, 2022 [...] above: Take 1 tablet by clive th every 8 hours as needed for pain [...] Translations: [Acute posthemorrhagic anemia] Episodic Adjustment disorders (9 sources) Adjustment disorder with mixed anxiety and [...] 8 Chronic obstructive pulmonary disease and bronchiectasis (14 sources) Chronic obstructive lung disease; Translations: [Chronic obstructive pulmonary disease, unspecified] Chronic Chronic obstructive pulmonary disease and bronchiectasis (6 sources) Bronchitis; Translations: [Bronchitis, not specified as acute or chronic] Onset: 5 Episodic Conditions associated with dizziness or vertigo (20 sources) Dizziness of unknown cause; Translations: [Dizziness and giddiness] Onset: 5 07-07-2021 Episodic Coronary atherosclerosis and other heart disease (20 sources) Coronary atherosclerosis; Translations: [Atherosclerotic heart disease of [place] coronary artery with other forms of angina pectoris] Onset: 2 Chronic Comment on above: 3.0 X 32 mm Synergy ZOLTAN to mid LAD; 2.5 x 16 MM Synergy ZOLTAN to second diagonal per Dr. Doherty @ [facility] 3.0 X 32 mm Synergy ZOLTAN to mid LAD; 2.5 x 16 MM Synergy ZOLTAN to second diagonal per Dr. Doherty @ [facility]. Status post CABG x 3 at [facility] 09/21/2021 Deficiency and other anemia (20 sources) Anemia; Translations: [Anemia, unspecified] 12-17-2021 Episodic Deficiency and other anemia (10 sources) Anemia, unspecified; Translations: [Anemia, unspecified] Episodic Diabetes mellitus without complication (11 sources) Prediabetes 03-13-2023 Episodic Diabetes mellitus without complication (1 source) Diabetes mellitus without complication Onset: 8 Disorders of lipid metabolism (20 sources) Mixed hyperlipidemia; Translations: [Mixed hyperlipidemia] Onset: 3 05-12-2020 Chronic E Codes: Fall (15 sources) Fall from ladder; Translations: [Fall on and from ladder, initial encounter] 09-06-2022 Episodic Epilepsy; convulsions (20 sources) Epilepsy; Translations: [Epilepsy, unspecified, not intractable, without status epilepticus] Onset: 3 Chronic Epilepsy; convulsions (20 sources) Seizure; Translations: [Unspecified convulsions] Onset: 1 05-12-2020 Episodic Comment on above: ON MEDS, LAST SEIZUR E 3 WEEKS AGO, SIGNS OF PETITI MAL, HALLUCINATES WITH SEIZURES Esophageal disorders (15 sources) Gastroesophageal reflux disease 01-11-2023 Chronic Essential hypertension (2 sources) Hypertensive disorder; Translations: [Essential (primary) hypertension] 11-10-2024 Chronic Fluid and electrolyte disorders (20 sources) Hypokalemia; Translations: [Hypokalemia] 01-29-2021 Episodic Genitourinary symptoms and ill-defined conditions (2 sources) Hemoglobinuria; Translations: [Hemoglobinuria] Episodic Headache; including migraine (20 sources) Headache; Translations: [Headache] 01-29-2021 Episodic Hyperplasia of prostate (20 sources) Benign prostatic hypertrophy with outflow obstruction; Translations: [Benign prostatic hyperplasia with lower urinary tract symptoms] Onset: 2 Chronic Influenza (19 sources) Influenza due to Influenza A virus; Translations: [Influenza due to other identified influenza virus with other respiratory manifestations] 03-30-2022 Episodic Intracranial injury (15 sources) Traumatic brain injury 01-11-2023 Episodic Menopausal disorders (1 source) Hormone replacement therapy; Translations: [Hormone replacement therapy] Onset: 5 Episodic Mood disorders (10 sources) Recurrent major depression 01-11-2023 Chronic Mycoses (9 sources) Pityriasis versicolor 05-05-2023 Episodic Nausea and vomiting (18 sources) Nausea and vomiting; Translations: [Nausea with vomiting, unspecified] 04-18-2022 Episodic Non-Hodgkin`s lymphoma (19 sources) Malignant lymphoma - small lymphocytic; Translations: [...] Episodic Occlusion or stenosis of precerebral arteries (11 sources) Carotid artery stenosis 03-11-2023 Chronic Open wounds of head; neck; and trunk (20 sources) Tear of skin; Translations: [Skin tear] 09-06-2022 Episodic Other aftercare (6 sources) Surgical follow-up 03-07-2024 Episodic Other aftercare (1 source) USP (current) use of aspirin; Translations: [USP (current) use of aspirin] Onset: 5 Episodic Other aftercare (1 source) tank terminal gauger (current) use of antithrombotics/antipl atelets; Translations: [tank terminal gauger (current) use of antithrombotics/antipl atelets] Onset: 5 Episodic Other aftercare (1 source) Other director long term care (current) drug therapy; Translations: [Other prison (current) drug therapy] Onset: 5 Episodic Other [...] (wall)] Chronic Other and unspecified benign neoplasm (10 sources) Lipoma (clinical) 04-07-2023 Episodic Other bone disease and musculoskeletal deformities (9 sources) Costal chondritis 09-08-2023 Episodic Other bone disease and musculoskeletal deformities (1 source) Other specified disorders of bone density and structure, unspecified site; Translations: [Other specified disorders of bone density and structure, unspecified site] Onset: 5 Episodic Other circulatory disease (4 sources) Disorder [...] without residual deficits] Episodic Other circulatory disease (9 sources) History of cerebellar stroke; Translations: [Personal history of transient ischemic attack (TIA), and cerebral infarction without residual deficits] 12-09-2022 Episodic Other circulatory disease (9 sources) History of cerebrovascular accident with residual [...] unspecified] Onset: 05-12-2020 Episodic Other gastrointestinal disorders (9 sources) Constipation 09-08-2023 Episodic Other hereditary and degenerative nervous system conditions (20 sources) Essential tremor; Translations: [Essential tremor] 03-22-2022 Chronic Other hereditary and degenerative nervous system conditions (20 sources) Essential tremor; Translations: [Essential and other specified forms of tremor] Chronic Other injuries and conditions due to external causes (20 sources) Subcutaneous emphysema; Translations: [Traumatic subcutaneous emphysema, initial encounter] 02-13-2022 Episodic Other injuries and conditions due to external causes (15 sources) Injury of head; Translations: [Unspecified injury of head, initial encounter] 09-06-2022 Episodic Other injuries and conditions due to external causes (1 source) History of falling; Translations: [History of falling] Onset: 5 Episodic Other lower respiratory disease (20 sources) Nodule of lung; Translations: [Solitary pulmonary nodule] 10-04-2022 Episodic Other lower respiratory disease (15 sources) Multiple nodules of lung 01-11-2023 Episodic Other lower respiratory disease (4 sources) Cough; Translations: [Cough] 04-05-2024 Episodic Other lower respiratory disease (7 sources) Solitary nodule of lung; Translations: [Solitary pulmonary nodule] 07-18-2024 Episodic Other nervous system disorders (12 sources) Disorder of brain; Translations: [Encephalopathy, unspecified] 11-01-2022 Chronic Other nervous system disorders (7 sources) Encephalopathy, unspecified; Translations: [Encephalopathy, unspecified] 11-02-2022 Chronic Other nervous system disorders (15 sources) Impaired cognition 01-11-2023 Episodic Other nervous system disorders (20 sources) Tremor; Translations: [Tremor, unspecified] Onset: 3 01-11-2023 Episodic Other nervous system disorders (6 sources) H/O: epilepsy; Translations: [Personal history of [...] Episodic Other nutritional; endocrine; and metabolic disorders (4 sources) Weight decreased; Translations: [Abnormal weight loss] 04-08-2022 Episodic Other screening for suspected conditions (not mental disorders or infectious disease) (20 sources) Patient encounter status; Translations: [Encounter for screening for malignant neoplasm of colon] Onset: 1 05-12-2020 Episodic Other upper respiratory infections (6 sources) Chronic sinusitis; Translations: [Chronic sinusitis, unspecified] Onset: 5 Chronic Parkinson`s disease (13 sources) Parkinsonism; Translations: [Parkinson's disease] 10-20-2022 Chronic Peripheral and visceral atherosclerosis (11 sources) Peripheral vascular disease 03-11-2023 Chronic Pleurisy; pneumothorax; pulmonary collapse (20 sources) Pleural effusion; Translations: [Pleural effusion, not elsewhere classified] 11-07-2021 Episodic Poisoning by nonmedicinal substances (15 sources) Bee sting-induced anaphylaxis 01-11-2023 Episodic Residual codes; unclassified (20 sources) Altered mental status; Translations: [Altered mental status, unspecified] 04-06-2020 Episodic Residual codes; unclassified (18 sources) History of clinical finding in subject; Translations: [Personal history of other specified conditions] 04-19-2022 Episodic Residual codes; unclassified (15 sources) Denture present 01-11-2023 Episodic Residual codes; unclassified (15 sources) Screening due 01-11-2023 Episodic Residual codes; unclassified (9 sources) Insomnia 05-05-2023 Episodic Residual codes; unclassified (10 sources) Personal history of other specified conditions; Translations: [History of seizure] 04-19-2022 Episodic Skull and face fractures (20 sources) Unspecified fracture of facial bones, initial encounter for closed fracture; Translations: [Fracture of facial bone] Onset: 2 Episodic Spondylosis; intervertebral disc disorders; other back problems (20 sources) Low back pain; Translations: [Low back pain] Episodic Substance-related disorders (20 sources) Nicotine dependence; Translations: [Nicotine dependence, unspecified, uncomplicated] Onset: 2 09-28-2021 Chronic Superficial injury; contusion (20 sources) Contusion of back; Translations: [Contusion of unspecified back wall of thorax, initial encounter] 07-12-2021 Episodic Thyroid disorders (3 sources) Hypothyroidism 08-31-2024 Chronic Unclassified (1 source) [...] state due to atrial fibrillation 01-11-2023 Unclassified (14 sources) Medication refused 02-28-2023 Unclassified (9 sources) Blood clot (morphologic abnormality) 04-21-2023 Comment on above: neck and arm dissovl ed Unclassified (18 sources) Patient encounter status 05-05-2023 Unclassified (1 source) Abdominal aortic aneurysm, without rupture, unspecified; Translations: [Abdominal aortic aneurysm, without rupture, unspecified] Onset: 5 Unclassified (1 source) Encounter for screening for COVID-19; Translations: [Encounter for screening for COVID-19] Onset: 5 Past or Other Problems Problem Classification Problem Date Documented Date Episodic/Chronic Complications of surgical procedures or medical care (20 sources) Atrial fibrillation; Translations: [Other postprocedural complications and disorders of the circulatory system, not elsewhere classified] Onset: 5 Episodic Coronary atherosclerosis and other heart disease (20 sources) Stented coronary artery; Translations: [Presence of coronary angioplasty implant and graft] Onset: 8 Episodic Comment on above: 3.0 X 32 mm Synergy ZOLTAN to mid LAD; 2.5 x 16 MM Synergy ZOLTAN to second diagonal per Dr. Doherty @ [facility] Lymphadenitis (2 sources) Localized enlarged lymph nodes; Translations: [Localized enlarged lymph nodes] Onset: 4 Episodic Other lower respiratory disease (11 sources) Solitary pulmonary nodule; Translations: [Solitary pulmonary nodule] Onset: 5 11-02-2022 Episodic Other nervous system disorders (4 sources) Other symptoms and signs involving cognitive functions and awareness; Translations: [Other symptoms and signs involving cognitive functions and awareness] Onset: 3 Episodic Residual codes; unclassified (20 sources) Tobacco [...] Unspecified convulsions; Translations: [Unspecified convulsions] Onset: 8 Urinary tract infections (2 sources) Urinary tract infectious disease; Translations: [Urinary tract infection, site not specified] Onset: 5 Episodic Results Test Name Value Interpretation Reference Range Facility CBC W/Diff, Automatedon 01-03 PATH REV Reviewed Normal [facility] Comment on above: Result Comment: SEE REPORT IN PATIENT'S EMR AMENDED REPORT 01/22/25 1529 PATH REV previously reported as: August Performed By: #### L 504.2610, L500.4050, L100.0100 #### [facility] [address] [place], [address] Absolute lymphocyte countOrd ered By: Aide Mcdonnell on 01-10-2025 Lymphocytes Auto (Unsp spec) [#/Vol] 10.03 10*3/uL High 0.83-4.51 [facility] Absolute neutrophil countOrd ered By: Aide Mcdonnell on 01-10-2025 Neutrophils (Bld) [#/Vol] 3.8 10*3/uL 2.0-7.7 [facility] Anion gap in Serum or Plasma Ordered By: Aide Mcdonnell on 01-10-2025 Anion gap [Moles/Vol] 8 mmol/L 5- [facility] Automated lymphocyte count a s percentage of total leukocytesOrdered By: Aide Mcdonnell on 01-10-2025 Lymphocytes/100 WBC Auto (Unsp spec) 63.4 % High 19-41 [facility] BUN/creatinine ratioOrdered By: Aide Mcdonnell on 01-10-2025 Urea nitrogen/Creatinine [Mass ratio] 17.9 mg/mg 10- [facility] Basophil percentageOrdered B y: Aide Mcdonnell on 01-10-2025 Basophils/100 WBC (Bld) 0.1 % 0-1 [facility] Bilirubin, totalOrdered By: Aide Mcdonnell on 01-10-2025 Bilirubin [Mass/Vol] 0.42 mg/dL 0.00-1.30 [facility] Blood manual differential co mment interpretation (narrative result)Ordered By: Aide Mcdonnell on 01-10-2025 Manual differential comment Bari (Bld) [Interp] SCANNED [facility] Carbon dioxide, total [Moles /volume] in Central venous bloodOrdered By: Aide Mcdonnell on 01-10-2025 CO2 [Moles/Vol] 28.2 mmol/L 21.0-32.0 [facility] Chloride assayOrdered By: Dejuan Mcdonnell on 01-10-2025 Chloride [Moles/Vol] 102 mmol/L 98-108 [facility] Comprehensive Metabolic Prof ilon 01-10-2025 Albumin [Mass/Vol] 4.1 g/dL Normal 3.4-4.8 [facility] Comment on above: Performed By: #### L 504.2610, L500.4050, L100.0100 #### [facility] [address] [place], [address] Albumin/Globulin [Mass ratio] 1.5 {ratio} Normal 0.9-2.4 [facility] Comment on above: Performed By: #### L 504.2610, L500.4050, L100.0100 #### [facility] [address] [place], [address] ALK PHOS 93 U/L Normal 40-129 [facility] Comment on above: Performed By: #### L 504.2610, L500.4050, L100.0100 #### [facility] [address] [place], [address] ALT [Catalytic activity/Vol] 19 U/L Normal <=46 [facility] Comment on above: Performed By: #### L 504.2610, L500.4050, L100.0100 #### [facility] [address] [place], [address] AST [Catalytic activity/Vol] 24 U/L Normal <=37 [facility] Comment on above: Performed By: #### L 504.2610, L500.4050, L100.0100 #### [facility] [address] [place], [address] Bilirubin [Mass/Vol] 0.42 mg/dL Normal 0.00-1.30 [facility] Comment on above: Performed By: #### L 504.2610, L500.4050, L100.0100 #### [facility] [address] [place], [address] BUN/CRE 17.9 RATIO Normal 10-20 [facility] Comment on above: Performed By: #### L 504.2610, L500.4050, L100.0100 #### [facility] [address] [place], [address] Calcium [Mass/Vol] 9.1 mg/dL Normal 7.6-11.0 [facility] Comment on above: Performed By: #### L 504.2610, L500.4050, L100.0100 #### [facility] [address] [place], [address] Chloride [Moles/Vol] 102 mmol/L Normal 98-108 [facility] Comment on above: Performed By: #### L 504.2610, L500.4050, L100.0100 #### [facility] [address] [place], [address] CO2 [Moles/Vol] 28.2 mmol/L Normal 21.0-32.0 [facility] Comment on above: Performed By: #### L 504.2610, L500.4050, L100.0100 #### [facility] [address] [place], [address] Creatinine [Mass/Vol] 1.07 mg/dL Normal 0.70-1.20 [facility] Comment on above: Performed By: #### L 504.2610, L500.4050, L100.0100 #### [facility] [address] [place], [address] ECRCL 55.82 ml/min Normal 50-250 [facility] Comment on above: Performed By: #### L 504.2610, L500.4050, L100.0100 #### [facility] [address] [place], [address] GAP 8 Normal 5-15 [facility] Comment on above: Performed By: #### L 504.2610, L500.4050, L100.0100 #### [facility] [address] [place], [address] GFR/1.73 sq M.predicted among non-blacks MDRD (S/P/Bld) [Vol rate/Area] 75 mL/min/{1.73_m2} Normal >60 [facility] Comment on above: Result Comment: mL/m in/1.73m2 CKD-EPI Creatinine Equation (2020) Performed By: #### L 504.2610, L500.4050, L100.0100 #### [facility] [address] [place], [address] Globulin (S) [Mass/Vol] 2.7 g/dL Normal 2.2-4.2 [facility] Comment on above: Performed By: #### L 504.2610, L500.4050, L100.0100 #### [facility] [address] [place], [address] Glucose [Mass/Vol] 123 mg/dL High 70-99 [facility] Comment on above: Performed By: #### L 504.2610, L500.4050, L100.0100 #### [facility] [address] [place], [address] Potassium [Moles/Vol] 4.2 mmol/L Normal 3.3-5.1 [facility] Comment on above: Performed By: #### L 504.2610, L500.4050, L100.0100 #### [facility] [address] [place], [address] Sodium [Moles/Vol] 139 mmol/L Normal 133-145 [facility] Comment on above: Performed By: #### L 504.2610, L500.4050, L100.0100 #### [facility] [address] [place], [address] T PROT 6.8 g/dL Normal 5.9-8.4 [facility] Comment on above: Performed By: #### L 504.2610, L500.4050, L100.0100 #### [facility] [address] [place], [address] Urea nitrogen [Mass/Vol] 19 mg/dL Normal 4-19 [facility] Comment on above: Performed By: #### L 504.2610, L500.4050, L100.0100 #### [facility] [address] [place], [address] Eosinophil percentageOrdered By: Aide Mcdonnell on 01-10-2025 Eosinophils/100 WBC (Bld) 6.6 % High 0-5 [facility] Erythrocyte distribution wid th ratioOrdered By: Aide Mcdonnell on 01-10-2025 Erythrocyte distribution width (RBC) [Ratio] 12.4 % 11.6-14.6 [facility] Erythrocyte distribution wid th standard deviationOrdered By: Aide Mcdonnell on 01-10-2025 Erythrocyte distribution width (RBC) [Ratio] 45.0 fl High 35.1-43.9 [facility] Glomerular filtration rate ( GFR) estimation/1.73 sq m using serum, plasma, or whole bOrdered By: Aide Mcdonnell on 01-10-2025 GFR/1.73 sq M.predicted among non-blacks MDRD (S/P/Bld) [Vol rate/Area] 75 mL/min/{1.73_m2} >60 [facility] Comment on above: mL/min/1.73m2 CKD-EP I Creatinine Equation (2020) Hematocrit Auto (Bld) [Volum e fraction]Ordered By: Aide Mcdonnell on 01-10-2025 Hematocrit (Bld) [Volume fraction] 38.5 % Low 40-54 [facility] Hemoglobin measurementOrdere d By: Aide Mcdonnell on 01-10-2025 Hemoglobin (Bld) [Mass/Vol] 13.3 g/dL 13.0-16.5 [facility] Immature granulocytes/100 WB C Auto (Bld)Ordered By: Aide Mcdonnell on 01-10-2025 Immature granulocytes/100 WBC (Bld) 0.200 % 0.0-0.9 [facility] Comment on above: IG% - Immature Granu locytes (promyelocytes, myelocytes and metamyelocytes) > 1% indicates that a LEFT SHIFT is Present. LDHon 01-10-2025 LDH 159 U/L Normal 87-241 [facility] Comment on above: Order Comment: 1 Performed By: #### L 504.2610, L500.4050, L100.0100 #### [facility] [address] [place], [address] Laboratory - Chemistry and C hemistry - challengeOrdered By: Aide Mcdonnell on 01-10-2025 AST [Catalytic activity/Vol] 24 U/L <38 [facility] Lactate dehydrogenase (LDH) measurementOrdered By: Aide MccraySathya on 01-10-2025 LDH [Catalytic activity/Vol] 159 U/L 87-241 [facility] MCV (mean corpuscular volume ) determinationOrdered By: Aide MccraySathya on 01-10-2025 MCV (RBC) [Entitic vol] 98.5 fL High 80-94 [facility] Mean corpuscular hemoglobin (MCH) determinationOrdered By: Aide MccraySathya on 01-10-2025 MCH (RBC) [Entitic mass] 34.0 pg High 27.0-32.0 [facility] Mean corpuscular hemoglobin concentration (MCHC) determinationOrdered By: Aide MccraySathya on 01-10-2025 MCHC (RBC) [Mass/Vol] 34.5 g/dL 32-36 [facility] Mean platelet volume determi nationOrdered By: Aide Mcdonnell on 01-10-2025 Platelet mean volume (Bld) [Entitic vol] 9.5 fL 6.2-12.0 [facility] Monocyte percentageOrdered B y: Aide Mcdonnell on 01-10-2025 Monocytes/100 WBC (Bld) 5.8 % 0-10 [facility] Neutrophil percentageOrdered By: Aide Mcdonnell on 01-10-2025 Neutrophils/100 WBC (Bld) 23.9 % Low 47-70 [facility] Nucleated red blood cell per centageOrdered By: Aide Mcdonnell on 01-10-2025 Nucleated RBC/100 WBC (Bld) [Ratio] 0 % 0-5 [facility] Oncology Visit Reporton 10-0 Oncology Visit Report [facility] [address] [place] [address] OFFICE VISIT Date of Service: 01/10/25 1506 MR#: [id number] Acct: [id number] Name: RADHA BRENNAN Rep #: [id number] : 1955 From: Rita Mathew MD Age/Sex: 69/M Location: [facility] Status: Signed HPI Subjective Date of Service 01/10/25 Chief Complaint Lymphoma History of Present Illness [...] interim development of defined viable neoplastic disease. 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 Chronic back [...] systems reviewed and no addt'l complaints, except (more content not included)... Normal [facility] Platelet countOrdered By: Ty ra Mcdonnell on 01-10-2025 Platelets (Bld) [#/Vol] 221 10*3/uL 150-450 [facility] Potassium measurement (mass/ volume)Ordered By: Aide Mcdonnell on 01-10-2025 Potassium (Unsp spec) [Mass/Vol] 4.2 mmol/L 3.3-5.1 [facility] RBC Auto (Bld) [#/Vol]Ordere d By: Aide Mcdonnell on 01-10-2025 RBC (Bld) [#/Vol] 3.91 10*6/uL Low 4.6-6.2 [facility] Review by pathologistOrdered By: Aide Mcdonnell on 01-10-2025 Pathologist review Bari (Unsp spec) [Interp] Reviewed [facility] Comment on above: Previous reported re sult: Lali bearden Edited by: VINCENZO on 01/22/25:1529SEE REPORT IN PATIENT'S EMR AMENDED REPORT 01/22/25 1529 PATH REV previously reported as: Lali bearden Serum creatinine measurement (mass/volume)Ordered By: Aide Mcdonnell on 01-10-2025 Creatinine [Mass/Vol] 1.07 mg/dL 0.70-1.20 [facility] Serum globulin measurementOr dered By: Aide Mcdonnell on 01-10-2025 Globulin (S) [Mass/Vol] 2.7 g/dL 2.2-4.2 [facility] Serum glucose measurement (m ass/volume)Ordered By: Aide Mcdonnell on 01-10-2025 Glucose [Mass/Vol] 123 mg/dL High 70-99 [facility] Serum or plasma alanine vieyra otransferase (ALT) measurementOrdered By: Aide Mcdonnell on 01-10-2025 ALT [Catalytic activity/Vol] 19 U/L <47 [facility] Serum or plasma albumin sadi urement (mass/volume)Ordered By: Aide Mcdonnell on 01-10-2025 Albumin [Mass/Vol] 4.1 g/dL 3.4-4.8 [facility] Serum or plasma albumin/glob ulin mass ratioOrdered By: Aide Mcdonnell on 01-10-2025 Albumin/Globulin [Mass ratio] 1.5 {ratio} 0.9-2.4 [facility] Serum or plasma alkaline amber sphatase measurementOrdered By: Aide Mcdonnell on 01-10-2025 ALP [Catalytic activity/Vol] 93 U/L 40-129 [facility] Serum or plasma calcium sadi urement (mass/volume)Ordered By: Aide Mcdonnell on 01-10-2025 Calcium [Mass/Vol] 9.1 mg/dL 7.6-11.0 [facility] Serum or plasma urea nitroge n measurement (mass/volume)Ordered By: Aide Mcdonnell on 01-10-2025 Urea nitrogen [Mass/Vol] 19 mg/dL 4-19 [facility] Sodium levelOrdered By: Aide Mcdonnell on 01-10-2025 Sodium [Moles/Vol] 139 mmol/L 133-145 [facility] Total proteinOrdered By: Janice Mcdonnell on 01-10-2025 Protein [Mass/Vol] 6.8 g/dL 5.9-8.4 [facility] White blood cell (WBC) count Ordered By: Aide Mcdonnell on 01-10-2025 WBC (Bld) [#/Vol] 15.8 10*3/uL High 4.4-11.0 [facility] US AORTAon 12-11-2024 US AORTA ORIGINAL EXAMINATION: RETROPERITONEAL ULTRASOUND OF THE AORTA 12/10/2024 TECHNIQUE: Duplex ultrasound using B-mode/miguel scaled imaging, Doppler spectral analysis and color flow Doppler was obtained of the aorta. COMPARISON: None HISTORY: ORDERING SYSTEM PROVIDED HISTORY: Reason for Exam: AAA screening, smoker All images are recorded and archived. FINDINGS: Aorta: Proximal aorta measures 3.1 x 3.2 cm. Mid aorta measures 2.2 x 2.2 cm. Distal aorta measures 2.1 x 1.9 cm. Iliacs: The right iliac artery measures 1.2 x 1.4 cm. Left iliac artery measures 1.5 x 1.4 cm. IMPRESSION: 1. No evidence for abdominal aortic aneurysm. 2. 3.2 cm abdominal aortic aneurysm. Recommend follow-up every 3 years. Interpreted by: Dean Allison DO Preliminary Report By: Dean Allison DO Electronically signed By Dean Allison DO Dictated Date: 12/11/2024 8:47:53 AM Prelim Date: 12/11/2024 8:49:17 AM Sign Date: 12/11/2024 8:49:17 AM Ordering Provider: PARISH Fine [facility] BD BONE DENSITY DEXA AXIAL S KELETONon 12-10-2024 BD BONE DENSITY DEXA AXIAL SKELETON ORIGINAL EXAMINATION: BONE DENSITOMETRY 12/10/2024 9:17 am TECHNIQUE: A bone density dual x-ray absorptiometry (DEXA) scan was performed of the axial (e.g. hips, spine) and/or appendicular (e.g. radius) skeleton as appropriate. COMPARISON: None HISTORY: ORDERING SYSTEM PROVIDED HISTORY: Reason for Exam: Osteoporosis Screening screening FINDINGS: T Score Left Femoral Neck: -1.3 Left Femoral Neck: 0.758 (g/cm2) T Score Left Hip: -1.1 Left Hip: 0.873 (g/cm2) T Score Lumbar Spine: -1.9 Lumbar Spine: 0.881 (g/cmd2) FRAX: 10 year fracture risk assessment Major osteoporotic fracture: 4.8% Hip fracture: 1.4% IMPRESSION: Osteopenia by WHO criteria. World Health Organization criteria: (Comparing with young normal sex matched population) - Normal: T-score at or above -1 SD (standard deviation) - Osteopenia: T-score between -1 and -2.5 SD - Osteoporosis: T-score at or below -2.5 SD The NOF recommends that FDA-approved medical therapies be considered in post-menopausal women and men age >/= 50 years with a: * Hip or vertebral fracture, or * T-score of /= 20% for major osteoporotic fractures or * >/= 3% for hip fractures All treatment decisions require clinical judgement and consideration of individual patient factors, including patient preferences, comorbidities, previous drug use, risk factors not captured in the FRAX registered model (e.g., frailty, falls, vitamin D deficiency, increased bone turnover, interval significant decline in bone density) and possible under- or over-estimation of fracture risk by FRAX. Interpreted by: Anisha Cantu DO Preliminary Report By: Anisha Cantu DO Electronically signed By Anisha Cantu DO Dictated Date: 12/10/2024 9:25:11 AM Prelim Date: 12/10/2024 9:25:58 AM Sign Date: 12/10/2024 9:25:58 AM Ordering Provider: PARISH GRAFF [facility] CBC W/Diff, Automatedon 08-2 PATH REV Reviewed Normal [facility] Comment on above: Result Comment: SEE REPORT IN PATIENT'S EMR AMENDED REPORT 11/22/24 3997 PATH REV previously reported as: May foll Performed By: #### L 501.4021, L300.4310, L100.0100, L300.3900, L500.2500 #### [facility] [address] [place], [address] 12 Lead EKGon 11-10-[address] [facility] [address] [place] [address] 12 Lead EKG 11/10/24 0039 MR#: [id number] Acct: [id number] Name: RADHA BRENNAN Rep #: [id number] : 1955 69 From: Dillon Gooden MD Attending Dr: Status: DEP ER Ordering Dr: Arben Orourke DO Date: 11/10/24 Location: ED Sex: M C Admitted: Test Reason : DIZZINESS Blood Pressure : */* mmHG Vent. Rate : 56 BPM Atrial Rate : 56 BPM P-R Int : 172 ms QRS Dur : 112 ms QT Int : 486 ms P-R-T Axes : 81 -60 69 degrees QTcB Int : 468 ms Sinus bradycardia Left axis deviation Abnormal ECG Confirmed by CONCETTA WOODWARD, DILLON ([id number]), market editor JAQUELIN DON ([id number]) on 11/12/2024 1:08:43 PM Referred By: NUZHAT Confirmed By: DILLNO GOODEN MD 11/12/24 1308 Date Dillon Gooden MD CC: Dr. Parish Graff DO; Dr. Arben Orourke DO Signed Normal [facility] Absolute lymphocyte countOrd ered By: Arben Orourke on 11-10-2024 Lymphocytes Auto (Unsp spec) [#/Vol] 9.90 10*3/uL High 0.83-4.51 [facility] Absolute neutrophil countOrd ered By: Arben Orourke on 11-10-2024 Neutrophils (Bld) [#/Vol] 3.4 10*3/uL 2.0-7.7 [facility] Activated partial thrombopla stin time (aPTT) in platelet poor plasma by coagulation aOrdered By: Arben Orourke on 11-10-2024 aPTT Coag (PPP) [Time] 22.6 s Low 24.1-36.2 [facility] Anion gap in Serum or Plasma Ordered By: Arben Orourke on 11-10-2024 Anion gap [Moles/Vol] 10 mmol/L 5-15 [facility] Automated lymphocyte count a s percentage of total leukocytesOrdered By: Arben Orourke on 11-10-2024 Lymphocytes/100 WBC Auto (Unsp spec) 59.7 % High 19-41 [facility] BUN/creatinine ratioOrdered By: Arben Orourke on 11-10-2024 Urea nitrogen/Creatinine [Mass ratio] 18.5 mg/mg 10- [facility] Basic Metabolic Profile (BMP )on 11-10-2024 BUN/CRE 18.5 RATIO Normal 10-20 [facility] Comment on above: Order Comment: REDRA W. PREVIOUS SPECIMEN REJECTED DUE TOHEMOLYSIS. 11/10/24106 [address]. Performed By: #### L 500.2500 ####[facility] [address] [place], [address] Calcium [Mass/Vol] 8.6 mg/dL Normal 7.6-11.0 [facility] Comment on above: Order Comment: REDRA W. PREVIOUS SPECIMEN REJECTED DUE TOHEMOLYSIS. 11/10/24106 [address]. Performed By: #### L 500.2500 ####[facility] [address] [place], [address] Chloride [Moles/Vol] 105 mmol/L Normal 98-108 [facility] Comment on above: Order Comment: REDRA W. PREVIOUS SPECIMEN REJECTED DUE TOHEMOLYSIS. 11/10/24106 [address] Performed By: #### L 500.2500 ####[facility] [address] [place], [address] CO2 [Moles/Vol] 26.2 mmol/L Normal 21.0-32.0 [facility] Comment on above: Order Comment: REDRA W. PREVIOUS SPECIMEN REJECTED DUE TOHEMOLYSIS. 11/10/24106 [place] [address] [place]. Performed By: #### L 500.2500 ####[facility] [address] [place], [address] Creatinine [Mass/Vol] 0.94 mg/dL Normal 0.70-1.20 [facility] Comment on above: Order Comment: REDRA W. PREVIOUS SPECIMEN REJECTED DUE TOHEMOLYSIS. 11/10/24106 [place] [facility] [place]. Performed By: #### L 500.2500 ####[facility] [address] [place], [address] ECRCL 65.26 ml/min Normal 50-250 [facility] Comment on above: Order Comment: REDRA W. PREVIOUS SPECIMEN REJECTED DUE TOHEMOLYSIS. 11/10/24106 [place] [facility] [place]. Performed By: #### L 500.2500 ####[facility] [address] [place], [address] GAP 10 Normal 5-15 [facility] Comment on above: Order Comment: REDRA W. PREVIOUS SPECIMEN REJECTED DUE TOHEMOLYSIS. 11/10/24106 [place] [address] [place]. Performed By: #### L 500.2500 ####[facility] [address] [place], [address] GFR/1.73 sq M.predicted among non-blacks MDRD (S/P/Bld) [Vol rate/Area] 87 mL/min/{1.73_m2} Normal >60 [facility] Comment on above: Order Comment: REDRA W. PREVIOUS SPECIMEN REJECTED DUE TOHEMOLYSIS. 11/10/24106 [address] [place]. Result Comment: mL/m in/1.73m2 CKD-EPI Creatinine Equation (2020) Performed By: #### L 500.2500 ####[facility] [address] [place], [address] Glucose [Mass/Vol] 80 mg/dL Normal 70-99 [facility] Comment on above: Order Comment: REDRA W. PREVIOUS SPECIMEN REJECTED DUE TOHEMOLYSIS. 11/10/24106 [place] [address] [place]. Performed By: #### L 500.2500 ####[facility] [address] [place], [address] Potassium [Moles/Vol] 3.7 mmol/L Normal 3.3-5.1 [facility] Comment on above: Order Comment: REDRA W. PREVIOUS SPECIMEN REJECTED DUE TOHEMOLYSIS. 11/10/24106 [place] [address] [place]. Performed By: #### L 500.2500 ####[facility] [address] [place], [address] Sodium [Moles/Vol] 141 mmol/L Normal 133-145 [facility] Comment on above: Order Comment: REDRA W. PREVIOUS SPECIMEN REJECTED DUE TOHEMOLYSIS. 11/10/24106 [place] [address] [place]. Performed By: #### L 500.2500 ####[facility] [address] [place], [address] Urea nitrogen [Mass/Vol] 18 mg/dL Normal - [facility] Comment on above: Order Comment: REDRA W. PREVIOUS SPECIMEN REJECTED DUE TOHEMOLYSIS. 11/10/24106 [address] [place]. Performed By: #### L 500.2500 ####[facility] [address] [place], [address] BUN Normal - [facility] Comment on above: Performed By: #### L 501.4021, L300.4310, L100.0100, L300.3900, L500.2500 ####[facility] [address] [place], [address] BUN/CRE Normal - [facility] Comment on above: Performed By: #### L 501.4021, L300.4310, L100.0100, L300.3900, L500.2500 ####[facility] [address] [place], [address] Calcium Normal 7.6-11.0 [facility] Comment on above: Performed By: #### L 501.4021, L300.4310, L100.0100, L300.3900, L500.2500 ####[facility] [address] [place], [address] CL Normal 98-108 [facility] Comment on above: Performed By: #### L 501.4021, L300.4310, L100.0100, L300.3900, L500.2500 ####[facility] [address] [place], [address] CO2 Normal 21.0-32.0 [facility] Comment on above: Performed By: #### L 501.4021, L300.4310, L100.0100, L300.3900, L500.2500 ####[facility] [address] [place], [address] CREAT,SERUM Normal 0.70-1.20 [facility] Comment on above: Performed By: #### L 501.4021, L300.4310, L100.0100, L300.3900, L500.2500 ####[facility] [address] [place], [address] ECRCL Normal 50-250 [facility] Comment on above: Performed By: #### L 501.4021, L300.4310, L100.0100, L300.3900, L500.2500 ####[facility] [address] [place], [address] eGFR Normal >60 [facility] Comment on above: Result Comment: mL/m in/1.73m2 CKD-EPI Creatinine Equation (2020) Performed By: #### L 501.4021, L300.4310, L100.0100, L300.3900, L500.2500 ####[facility] [address] [place], [address] GAP Normal 5-15 [facility] Comment on above: Performed By: #### L 501.4021, L300.4310, L100.0100, L300.3900, L500.2500 ####[facility] [address] [place], [address] GLU Normal 70-99 [facility] Comment on above: Performed By: #### L 501.4021, L300.4310, L100.0100, L300.3900, L500.2500 ####[facility] [address] [place], [address] Potassium Normal 3.3-5.1 [facility] Comment on above: Result Comment: Hemo lysis present, Results??could be affected. ?? Performed By: #### L 501.4021, L300.4310, L100.0100, L300.3900, L500.2500 ####[facility] [address] [place], [address] Basic Metabolic Profile (BMP) Normal 133-145 [facility] Comment on above: Performed By: #### L 501.4021, L300.4310, L100.0100, L300.3900, L500.2500 ####[facility] [address] [place], [address] Basophil percentageOrdered B y: Arben Orourke on 11-10-2024 Basophils/100 WBC (Bld) 0.1 % 0-1 [facility] Bilirubin Test strip Ql (U)O rdered By: Arben Orourke on 11-10-2024 Bilirubin Ql (U) Negative Negative [facility] Blood manual differential co mment interpretation (narrative result)Ordered By: Arben Orourke on 11-10-2024 Manual differential comment Bari (Bld) [Interp] SCANNED [facility] Brain/Head without Contrasto n 11-10-2024 Brain/Head without Contrast [facility] Imaging Services [address] [place] [address] Brain/Head without Contrast MR#: [id number] Acct: [id number] Name: RADHA BRENNAN Rep #: [id number] : 1955 M 69 From: Umberto Aguilar MD PCP: Dr. Parish Graff DO Status: PRE ER Study: Brain/Head without Contrast Date of Exam: 12/27 Exam# [id number] Ordering Dr: Arben Orourke DO PROCEDURE: BRAIN/HEAD WITHOUT CONTRAST 11/10/2024 REASON FOR EXAM: AMS TECHNIQUE: BRAIN/HEAD WITHOUT CONTRAST Coronal and Sagittal reconstruction series were provided. One or more dose reduction techniques were used (e.g., Automated exposure control, adjustment of the mA and/or kV according to patient size, use of iterative reconstruction technique. RADIATION DOSE SUMMARY: CTDlvol: 45 mGy DLP: 830 mGycm COMPARISON: 02/27/2023 FINDINGS: Diffuse atrophy. Old right posterior watershed region infarct. No acute abnormal brain densities. No intracranial hemorrhage. No hydrocephalus or midline shift. No acute scalp or skull pathology. Bilateral lens extraction. Clear sinuses. CT/Brain/Head without Contrast IMPRESSION: No acute intracranial findings Reading Location: [place] [address] CC: Dr. Parish Graff DO; Dr. Arben Orourke DO Design Analyst: Signed Normal [facility] Carbon dioxide, total [Moles /volume] in Central venous bloodOrdered By: Arben Orourke on 11-10-2024 CO2 [Moles/Vol] 26.2 mmol/L 21.0-32.0 [facility] Chest PA and Lateralon 11-10 Chest PA and Lateral [facility] Imaging Services [address] [place], [place] [address] Chest PA and Lateral MR#: [id number] Acct: [id number] Name: RADHA BRENNAN Rep #: [id number] : 1955 M 69 From: Umberto Aguilar MD PCP: Dr. Parish Graff DO Status: REG ER Study: Chest PA and Lateral Date of Exam: 11/10/24 Exam# [id number] Ordering Dr: Arben Orourke DO PROCEDURE: CHEST PA AND LATERAL 11/10/2024 REASON FOR EXAM: CHEST PAIN TECHNIQUE: CHEST PA AND LATERAL COMPARISON: 05/23/2023 FINDINGS: Normal heart size. Status post CABG. Status post coronary stenting. Surgical clips right axilla. Well inflated lungs. Mild emphysema and smoking-related interstitial lung disease. No consolidation, effusion, or pneumothorax. RAD/Chest PA and Lateral IMPRESSION: No acute findings Reading Location: [place] [address] CC: Dr. Parish Graff DO; Dr. Arben Orourke DO Design Analyst: Signed Normal [facility] Chloride assayOrdered By: Dejuan Orourke on 11-10-2024 Chloride [Moles/Vol] 105 mmol/L 98-108 [facility] Emergency Department Summary on 11-10-2024 Emergency Department Summary [facility] Medical Records Department [address] [place] [id number] Emergency Department Summary 11/10/24 MR#: [id number] Acct: [id number] Name: RADHA BRENNAN Rep #: [id number] : 1955 69 From: Arben Orourke DO PCP: Dr. Parish Graff DO Status:REG ER Location: ED HPI History of Present Illness Chief Complaint: Dizziness Narrative Narrative: Patient is a 69-year-old male with past medical history of iron deficiency anemia, GERD, small cell B lymphoma, alcohol use, hypercholesteremia, migraine headache, Parkinson's disease, hypertension, seizure, hyperlipidemia, CVA who presented to the emergency department with a chief complaint of almost passing out. Patient apparently according to EMS notes that he went to the bathroom stood up and became dizzy patient states that this happened before and he states that he is unsure when his symptoms started. Per EMS the patient was at his baseline. [facility] Medical History Small lymphocytic lymphoma Prediabetes [...] collapse Seizure Hyperlipidemia Atherosclerotic heart disease of [place] coronary artery without angina pectoris Chronic back pain Atrial septal aneurysm Abnormal electrocardiogram CVA (cerebral vascular accident) Nicotine dependence Home Medications ???Medication ???Instructions ???Recorded ???Last Taken ???Type acetaminophen 500 mg capsule 1,000 mg (2 x 500 mg) PO Q6H PRN 1 04/26/21 Unknown Rx pain #120 caps folic acid 1 mg tablet 1 mg PO DAILY supplement #90 tabs 03/30/22 Unknown Rx magnesium oxide 400 mg (241.3 mg 400 mg PO DAILY supplement #90 tab s 03/30/22 Unknown Rx magnesium) tablet ascorbate calcium (vitamin C) 500 500 mg PO DAILY vitamin #90 tabs 06/16/22 Unknown Rx mg tablet aspirin 81 mg tablet,delayed 81 mg PO DAILY heart health #90 12/17/22 Rx release (Adult Aspirin Regimen) tabs ferrous sulfate 325 mg (65 mg 325 mg PO DAILY supplement #90 tab s 06/16/22 Unknown Rx iron) tablet (FeroSul) multivitamin with folic acid 400 1 tab PO DAILY vitamin #90 tabs Unknown Rx mcg tablet (Daily-Tin (with folic acid)) lamotrigine 100 mg tablet 100 mg PO BID seizures #60 tabs Unknown Rx front wheeled walker #1 ea 11/26/22 Unknown Rx escitalopram oxalate 10 mg tablet 10 mg PO DAILY #90 tabs 12/15/22 Unknown Rx (Lexapro) thiamine HCl (vitamin B1) 100 mg 100 mg PO BID supplement 12/22/22 Unknown History tablet atorvastatin 80 mg tablet 80 mg PO QDAY 07/28/23 Unknown His tory metoprolol succinate 25 mg 12.5 mg PO QDAY 07/28/23 Unknown H istory tablet,extended release 24 hr epinephrine 0.3 mg/0.3 mL 0.3 mg IM ONCE 03/12/24 Unknown Hi story injection, auto-injector (EpiPen 2-Sebastian) mirtazapine 30 mg tablet 30 mg PO QDAY 03/12/24 Unknown His tory pantoprazole 40 mg tablet,delayed 40 mg PO QDAY 03/12/24 Unknown Hi story release sennosides 8.6 mg tablet (senna) 8.6 mg PO QDAY 03/12/24 Unknown Hi story levetiracetam 500 mg tablet 500 mg PO BID 03/13/24 Unknown His tory pramipexole 0.125 mg tablet 0.125 mg PO TID 03/13/24 Unknown H istory primidone 50 mg tablet 50 mg PO Q8H 04/05/24 Unknown Hist ory nitroglycerin 0.4 mg sublingual 0.4 mg sublingual Q5-15M PRN chest 04/10/24 Unknown Rx tablet (Nitrostat) pain #25 tabs budesonide 160 mcg-glycopyr 9 2 inh inhalation BID #10.7 grams 0 07/18/24 Unknown Rx mcg-formot 4.8 mcg/actuation HFA inhaler (Breztri Aerosphere) Allergy/AdvReac Type Severity Reaction Status Date / Time bee venom protein (honey bee) Allergy Severe Anaphylaxis Verified 10/18/24 13:34 tuberculin, purified protein Allergy Severe Swelling Verified 10/18/24 13:34 deriva Family History Mother Myocardial infarction Cancer Diabetes COPD (chronic obstructive pulmonary disease) Brother Myocardial infarction Cancer Diabetes Sister Cancer Diabetes Heart disease Father Lung cancer Surgical History ... Normal [facility] Eosinophil percentageOrdered By: Arben Orourke on 11-10-2024 Eosinophils/100 WBC (Bld) 6.9 % High 0-5 [facility] Erythrocyte distribution wid th ratioOrdered By: Arben Orourke on 11-10-2024 Erythrocyte distribution width (RBC) [Ratio] 13.0 % 11.6-14.6 [facility] Erythrocyte distribution wid th standard deviationOrdered By: Arben Orourke on 11-10-2024 Erythrocyte distribution width (RBC) [Ratio] 49.1 fl High 35.1-43.9 [facility] Glomerular filtration rate ( GFR) estimation/1.73 sq m using serum, plasma, or whole bOrdered By: Arben Orourke on 11-10-2024 GFR/1.73 sq M.predicted among non-blacks MDRD (S/P/Bld) [Vol rate/Area] 87 mL/min/{1.73_m2} >60 [facility] Comment on above: mL/min/1.73m2 CKD-EP I Creatinine Equation (2020) Hematocrit Auto (Bld) [Volum e fraction]Ordered By: Arben Orourke on 11-10-2024 Hematocrit (Bld) [Volume fraction] 38.9 % Low 40-54 [facility] Hemoglobin measurementOrdere d By: Arben Orourke on 11-10-2024 Hemoglobin (Bld) [Mass/Vol] 13.2 g/dL 13.0-16.5 [facility] Immature granulocytes/100 WB C Auto (Bld)Ordered By: Arben Orourke on 11-10-2024 Immature granulocytes/100 WBC (Bld) 0.200 % 0.0-0.9 [facility] Comment on above: IG% - Immature Granu locytes (promyelocytes, myelocytes and metamyelocytes) > 1% indicates that a LEFT SHIFT is Present. International normalized rat io (INR) calculationOrdered By: Arben Orourke on 11-10-2024 INR Coag (Bld) [Relative time] 1.1 {INR} [facility] Ketones Test strip Ql (U)Ord ered By: Arben Orourke on 11-10-2024 Ketones Ql (U) Negative Negative [facility] L501.4021on 11-10-2024 Trop T High Sen 9 ng/L Normal <=22 [facility] Comment on above: Result Comment: Hemo lysis present, Results??could be affected. ?? Performed By: #### L 501.4021, L300.4310, L100.0100, L300.3900, L500.2500 ####[facility] [address] [place], [place], [id number] MCV (mean corpuscular volume ) determinationOrdered By: Arben Orourke on 11-10-2024 MCV (RBC) [Entitic vol] 102.1 fL High 80-94 [facility] Mean corpuscular hemoglobin (MCH) determinationOrdered By: Arben Orourke on 11-10-2024 MCH (RBC) [Entitic mass] 34.6 pg High 27.0-32.0 [facility] Mean corpuscular hemoglobin concentration (MCHC) determinationOrdered By: Arben Orourke on 11-10-2024 MCHC (RBC) [Mass/Vol] 33.9 g/dL 32-36 [facility] Mean platelet volume determi nationOrdered By: Arben Orourke on 11-10-2024 Platelet mean volume (Bld) [Entitic vol] 9.9 fL 6.2-12.0 [facility] Microscopic analysis of urin e for red blood cells (RBC)Ordered By: Arben Orourke on 11-10-2024 Microscopic analysis of urine for red blood cells (RBC) 0-5 SEEN /hpf 0-5 [facility] Monocyte percentageOrdered B y: Arben Orourke on 11-10-2024 Monocytes/100 WBC (Bld) 12.4 % High 0-10 [facility] Mucus LM Ql (Urine sed)Order ed By: Arben Orourke on 11-10-2024 Mucus Ql (Urine sed) 0 SEEN /hpf [facility] Neutrophil percentageOrdered By: Arben Orourke on 11-10-2024 Neutrophils/100 WBC (Bld) 20.7 % Low 47-70 [facility] Nitrite Test strip Ql (U)Ord ered By: Arben Orourke on 11-10-2024 Nitrite Ql (U) Negative Negative [facility] Nucleated red blood cell per centageOrdered By: Arben Orourke on 11-10-2024 Nucleated RBC/100 WBC (Bld) [Ratio] 0 % 0-5 [facility] Partial Thromboplast Timeon 11-10-2024 aPTT Coag (Bld) [Time] 22.6 s Low 24.1-36.2 [facility] Comment on above: Performed By: #### L 501.4021, L300.4310, L100.0100, L300.3900, L500.2500 ####[facility] [address] [place], [address] Platelet countOrdered By: Dejuan Orourke on 11-10-2024 Platelets (Bld) [#/Vol] 217 10*3/uL 150-450 [facility] Potassium measurement (mass/ volume)Ordered By: Arben Orourke on 11-10-2024 Potassium (Unsp spec) [Mass/Vol] 3.7 mmol/L 3.3-5.1 [facility] Protein Test strip Ql (U)Ord ered By: Arben Orourke on 11-10-2024 Protein Ql (U) Negative Negative [facility] Prothrombin Time w/INRon INR Coag (PPP) [Relative time] 1.1 {INR} Normal [facility] Comment on above: Performed By: #### L 501.4021, L300.4310, L100.0100, L300.3900, L500.2500 #### [facility] [address] [place], [address] PT Coag (PPP) [Time] 14.7 s Normal 11.7-14.9 [facility] Comment on above: Performed By: #### L 501.4021, L300.4310, L100.0100, L300.3900, L500.2500 #### [facility] [address] [place], [address] Prothrombin timeOrdered By: Arben Orourke on 11-10-2024 PT Coag (PPP) [Time] 14.7 s 11.7-14.9 [facility] RBC Auto (Bld) [#/Vol]Ordere d By: Arben Orourke on 11-10-2024 RBC (Bld) [#/Vol] 3.81 10*6/uL Low 4.6-6.2 [facility] Review by pathologistOrdered By: Arben Orourke on 11-10-2024 Pathologist review Bari (Unsp spec) [Interp] August [facility] Pathologist review Bari (Unsp spec) [Interp] Reviewed [facility] Comment on above: Previous reported re sult: Lali monisha Edited by: VINCENZO on 11/22/24:1552SEE REPORT IN PATIENT'S EMR AMENDED REPORT 11/22/24 1552 PATH REV previously reported as: Lali bearden Serum creatinine measurement (mass/volume)Ordered By: Arben Orourke on 11-10-2024 Creatinine [Mass/Vol] 0.94 mg/dL 0.70-1.20 [facility] Serum glucose measurement (m ass/volume)Ordered By: Arben Orourke on 11-10-2024 Glucose [Mass/Vol] 80 mg/dL 70-99 [facility] Serum or plasma calcium sadi urement (mass/volume)Ordered By: Arben Orourke on 11-10-2024 Calcium [Mass/Vol] 8.6 mg/dL 7.6-11.0 [facility] Serum or plasma urea nitroge n measurement (mass/volume)Ordered By: Arben Orourke on 11-10-2024 Urea nitrogen [Mass/Vol] 18 mg/dL 4-19 [facility] Sodium levelOrdered By: Olive Orourke on 11-10-2024 Sodium [Moles/Vol] 141 mmol/L 133-145 [facility] Squamous epithelial cells de tection in urine sediment by light microscopyOrdered By: Arben Orourke on 11-10-2024 Epithelial cells.squamous LM Ql (Urine sed) 0 SEEN /hpf 0-5 [facility] Troponin T HS 2 HRon 025 Trop T High Sen 9 ng/L Normal <=22 [facility] Comment on above: Performed By: #### L 499.0042 #### [facility] [address] [place], [place], [address] Troponin T HS 4 HRon 025 Trop T High Sen Normal <=22 [facility] Comment on above: Result Comment: Canc elled via OM: Order cancelled - Patient discharged Performed By: #### L 499.0043 ####[facility] [address] [place], [place], [id number] Troponin T.cardiac [Mass/vol ume] in Serum or Plasma by High sensitivity methodOrdered By: Arben Orourke on 11-10-2024 Troponin T.cardiac High sensitivity method [Mass/Vol] 9 ng/L <22 [facility] Troponin T.cardiac High sensitivity method [Mass/Vol] 9 ng/L <22 [facility] Comment on above: Hemolysis present, R esults could be affected. Urinalysis, Completeon 11-10 RBC 0-5 SEEN Normal 0-5 [facility] Comment on above: Order Comment: CLEAN CATCH Performed By: #### L 400.0001 #### [facility] [address] [place], [address] BILIRUBIN URINE Negative Normal Negative [facility] Comment on above: Order Comment: CLEAN CATCH Performed By: #### L 400.0001 #### [facility] [address] [place], [address] Clarity (U) Clear Normal Clear [facility] Comment on above: Order Comment: CLEAN CATCH Performed By: #### L 400.0001 #### [facility] [address] [place], [address] Color (U) Straw Normal Yellow [facility] Comment on above: Order Comment: CLEAN CATCH Performed By: #### L 400.0001 #### [facility] [address] [place], [address] GLUCOSE, UR Normal Normal Normal [facility] Comment on above: Order Comment: CLEAN CATCH Performed By: #### L 400.0001 #### [facility] [address] [place], [address] KETONE UR Negative Normal Negative [facility] Comment on above: Order Comment: CLEAN CATCH Performed By: #### L 400.0001 #### [facility] [address] [place], [address] LEUK ESTERASE Negative Normal Negative [facility] Comment on above: Order Comment: CLEAN CATCH Performed By: #### L 400.0001 #### [facility] [address] [place], [address] Nitrite Ql (U) Negative Normal Negative [facility] Comment on above: Order Comment: CLEAN CATCH Performed By: #### L 400.0001 #### [facility] [address] [place], [address] OCCULT BLOOD-UR 10 /ul Abnormal Negative [facility] Comment on above: Order Comment: CLEAN CATCH Performed By: #### L 400.0001 #### [facility] [address] [place], [address] pH UR 6.5 Normal 5.0 - 8.0 [facility] Comment on above: Order Comment: CLEAN CATCH Performed By: #### L 400.0001 #### [facility] [address] [place], [address] PROT DIPSTX Negative Normal Negative [facility] Comment on above: Order Comment: CLEAN CATCH Performed By: #### L 400.0001 #### [facility] [address] [place], [address] SP.GR. DIPSTX 1.010 Normal 1.002-1.030 [facility] Comment on above: Order Comment: CLEAN CATCH Performed By: #### L 400.0001 #### [facility] [address] [place], [address] UROBILI Normal Normal Normal [facility] Comment on above: Order Comment: CLEAN CATCH Performed By: #### L 400.0001 #### [facility] [address] [place], [address] BACTERIA 0 SEEN Normal None Seen [facility] Comment on above: Order Comment: CLEAN CATCH Performed By: #### L 400.0001 #### [facility] [address] [place], [address] EPI,SQUAMOUS 0 SEEN Normal 0-5 [facility] Comment on above: Order Comment: CLEAN CATCH Performed By: #### L 400.0001 #### [facility] [address] [place], [address] Mucus Ql (Urine sed) 0 SEEN Normal [facility] Comment on above: Order Comment: CLEAN CATCH Performed By: #### L 400.0001 #### [facility] [address] [place], [address] WBC 0 SEEN Normal 0-5 [facility] Comment on above: Order Comment: CLEAN CATCH Performed By: #### L 400.0001 #### [facility] [address] [place], [place], [address] Urine clarityOrdered By: Eddie Orourke on 11-10-2024 Clarity (U) Clear Clear [facility] Urine color determinationOrd ered By: Arben Orourke on 11-10-2024 Color (U) Straw Yellow [facility] Urine glucose detectionOrder ed By: Arben Orourke on 11-10-2024 Glucose Ql (U) Normal mg/dl Normal [facility] Urine leukocyte esterase det ection by dipstickOrdered By: Arben Orourke on 11-10-2024 Leukocyte esterase Test strip Ql (U) Negative Negative [facility] Urine pHOrdered By: Arben duff on 11-10-2024 pH (U) 6.5 [pH] 5.0 - 8.0 [facility] Urine sediment bacteria coun t by microscopy (number/high power field)Ordered By: Arben Orourke on 11-10-2024 Bacteria LM.HPF (Urine sed) [#/Area] 0 /[HPF] None Seen [facility] Urine specific gravity measu rementOrdered By: Arben Orourke on 11-10-2024 Specific gravity (U) [Rel density] 1.010 1.002-1.030 [facility] Urine urobilinogen measureme ntOrdered By: Arben Orourke on 11-10-2024 Urobilinogen Ql (U) Normal mg/dl Normal [facility] White blood cell (WBC) count Ordered By: Arben Orourke on 11-10-2024 WBC (Bld) [#/Vol] 16.6 10*3/uL High 4.4-11.0 [facility] White blood cell countOrdere d By: Arben Orourke on 11-10-2024 White blood cell count 0 SEEN /hpf 0-5 [facility] Absolute lymphocyte countOrd ered By: [facility] on 10-18-2024 Lymphocytes Auto (Unsp spec) [#/Vol] 7.06 10*3/uL High 0.83-4.51 [facility] Absolute neutrophil countOrd ered By: [facility] on 10-18-2024 Neutrophils (Bld) [#/Vol] 3.5 10*3/uL 2.0-7.7 [facility] Anion gap in Serum or Plasma Ordered By: [facility] on 10-18-2024 Anion gap [Moles/Vol] 10 mmol/L 5-15 [facility] Automated lymphocyte count a s percentage of total leukocytesOrdered By: [facility] on 10-18-2024 Lymphocytes/100 WBC Auto (Unsp spec) 53.4 % High 19-41 [facility] BUN/creatinine ratioOrdered By: [facility] on 10-18-2024 Urea nitrogen/Creatinine [Mass ratio] 23.5 mg/mg High 10-20 [facility] Basophil percentageOrdered B y: Rita Mathew on 10-18-2024 Basophils/100 WBC (Bld) 0.2 % 0-1 [facility] Bilirubin, totalOrdered By: [facility] on 10-18-2024 Bilirubin [Mass/Vol] 0.16 mg/dL 0.00-1.30 [facility] Blood manual differential co mment interpretation (narrative result)Ordered By: [facility] on 10-18-2024 Manual differential comment Bari (Bld) [Interp] COMMENT [facility] Comment on above: LYMPHOCYTOSIS.MONOCY TOSIS. CBC W/Diff, Automatedon 10-02 SMEAR COMMENT COMMENT Normal [facility] Comment on above: Result Comment: LYMP HOCYTOSIS. MONOCYTOSIS. Performed By: #### L 100.0100, L504.2610, L500.4050 ####[facility] [address] [place], [address] ATYPICAL LYMPH 1+ Normal [facility] Comment on above: Performed By: #### L 100.0100, L504.2610, L500.4050 ####[facility] [address] [place], [address] Carbon dioxide, total [Moles /volume] in Central venous bloodOrdered By: Rita Mathew on 10-18-2024 CO2 [Moles/Vol] 24.6 mmol/L 21.0-32.0 [facility] Chloride assayOrdered By: Shahzad Mathew on 10-18-2024 Chloride [Moles/Vol] 106 mmol/L 98-108 [facility] Comprehensive Metabolic Prof ilon 10-18-2024 Albumin [Mass/Vol] 3.8 g/dL Normal 3.4-4.8 [facility] Comment on above: Performed By: #### L 100.0100, L504.2610, L500.4050 ####[facility] [address] [place], [address] Albumin/Globulin [Mass ratio] 1.4 {ratio} Normal 0.9-2.4 [facility] Comment on above: Performed By: #### L 100.0100, L504.2610, L500.4050 ####[facility] [address] [place], [address] ALK PHOS 105 U/L Normal 40-129 [facility] Comment on above: Performed By: #### L 100.0100, L504.2610, L500.4050 ####[facility] [address] [place], [address] ALT [Catalytic activity/Vol] 44 U/L Normal <=46 [facility] Comment on above: Performed By: #### L 100.0100, L504.2610, L500.4050 ####[facility] [address] [place], [address] AST [Catalytic activity/Vol] 42 U/L High <=37 [facility] Comment on above: Performed By: #### L 100.0100, L504.2610, L500.4050 ####[facility] [address] [place], [address] Bilirubin [Mass/Vol] 0.16 mg/dL Normal 0.00-1.30 [facility] Comment on above: Performed By: #### L 100.0100, L504.2610, L500.4050 ####[facility] [address] [place], [address] BUN/CRE 23.5 RATIO High 10-20 [facility] Comment on above: Performed By: #### L 100.0100, L504.2610, L500.4050 ####[facility] [address] [place], [address] Calcium [Mass/Vol] 8.9 mg/dL Normal 7.6-11.0 [facility] Comment on above: Performed By: #### L 100.0100, L504.2610, L500.4050 ####[facility] [address] [place], [address] Chloride [Moles/Vol] 106 mmol/L Normal 98-108 [facility] Comment on above: Performed By: #### L 100.0100, L504.2610, L500.4050 ####[facility] [address] [place], [address] CO2 [Moles/Vol] 24.6 mmol/L Normal 21.0-32.0 [facility] Comment on above: Performed By: #### L 100.0100, L504.2610, L500.4050 ####[facility] [address] [place], [address] Creatinine [Mass/Vol] 0.96 mg/dL Normal 0.70-1.20 [facility] Comment on above: Performed By: #### L 100.0100, L504.2610, L500.4050 ####[facility] [address] [place], [address] ECRCL 64.43 ml/min Normal 50-250 [facility] Comment on above: Performed By: #### L 100.0100, L504.2610, L500.4050 ####[facility] [address] [place], [address] GAP 10 Normal 5-15 [facility] Comment on above: Performed By: #### L 100.0100, L504.2610, L500.4050 ####[facility] [address] [place], [address] GFR/1.73 sq M.predicted among non-blacks MDRD (S/P/Bld) [Vol rate/Area] 86 mL/min/{1.73_m2} Normal >60 [facility] Comment on above: Result Comment: mL/m in/1.73m2 CKD-EPI Creatinine Equation (2020) Performed By: #### L 100.0100, L504.2610, L500.4050 ####[facility] [address] [place], [address] Globulin (S) [Mass/Vol] 2.8 g/dL Normal 2.2-4.2 [facility] Comment on above: Performed By: #### L 100.0100, L504.2610, L500.4050 ####[facility] [address] [place], [address] Glucose [Mass/Vol] 101 mg/dL High 70-99 [facility] Comment on above: Performed By: #### L 100.0100, L504.2610, L500.4050 ####[facility] [address] [place], [address] Potassium [Moles/Vol] 4.0 mmol/L Normal 3.3-5.1 [facility] Comment on above: Performed By: #### L 100.0100, L504.2610, L500.4050 ####[facility] [address] [place], [address] Sodium [Moles/Vol] 140 mmol/L Normal 133-145 [facility] Comment on above: Performed By: #### L 100.0100, L504.2610, L500.4050 ####[facility] [address] [place], [address] T PROT 6.5 g/dL Normal 5.9-8.4 [facility] Comment on above: Performed By: #### L 100.0100, L504.2610, L500.4050 ####[facility] [address] [place], [address] Urea nitrogen [Mass/Vol] 22 mg/dL High 4-19 [facility] Comment on above: Performed By: #### L 100.0100, L504.2610, L500.4050 ####[facility] [address] [place], [address] Eosinophil percentageOrdered By: Rita Mathew on 10-18-2024 Eosinophils/100 WBC (Bld) 8.2 % High 0-5 [facility] Erythrocyte distribution wid th ratioOrdered By: [facility] on 10-18-2024 Erythrocyte distribution width (RBC) [Ratio] 13.1 % 11.6-14.6 [facility] Erythrocyte distribution wid th standard deviationOrdered By: Rita Mathew on 10-18-2024 Erythrocyte distribution width (RBC) [Ratio] 48.0 fl High 35.1-43.9 [facility] Glomerular filtration rate ( GFR) estimation/1.73 sq m using serum, plasma, or whole bOrdered By: Rita Mathew on 10-18-2024 GFR/1.73 sq M.predicted among non-blacks MDRD (S/P/Bld) [Vol rate/Area] 86 mL/min/{1.73_m2} >60 [facility] Comment on above: mL/min/1.73m2 CKD-EP I Creatinine Equation (2020) Hematocrit Auto (Bld) [Volum e fraction]Ordered By: Rita Mathew on 10-18-2024 Hematocrit (Bld) [Volume fraction] 37.9 % Low 40-54 [facility] Hemoglobin measurementOrdere d By: Rita Mathew on 10-18-2024 Hemoglobin (Bld) [Mass/Vol] 12.9 g/dL Low 13.0-16.5 [facility] Immature granulocytes/100 WB C Auto (Bld)Ordered By: [facility] on 10-18-2024 Immature granulocytes/100 WBC (Bld) 0.200 % 0.0-0.9 [facility] Comment on above: IG% - Immature Granu locytes (promyelocytes, myelocytes and metamyelocytes) > 1% indicates that a LEFT SHIFT is Present. LDHon 10-18-2024 LDH 152 U/L Normal 87-241 [facility] Comment on above: Order Comment: 1 Performed By: #### L 100.0100, L504.2610, L500.4050 ####[facility] [address] [place], [address] Laboratory - Chemistry and C hemistry - challengeOrdered By: Rita Mathew on 10-18-2024 AST [Catalytic activity/Vol] 42 U/L High <38 [facility] Lactate dehydrogenase (LDH) measurementOrdered By: [facility] on 10-18-2024 LDH [Catalytic activity/Vol] 152 U/L 87-241 [facility] MCV (mean corpuscular volume ) determinationOrdered By: Rita Mathew on 10-18-2024 MCV (RBC) [Entitic vol] 99.5 fL High 80-94 [facility] Mean corpuscular hemoglobin (MCH) determinationOrdered By: Rita Mathew on 10-18-2024 MCH (RBC) [Entitic mass] 33.9 pg High 27.0-32.0 [facility] Mean corpuscular hemoglobin concentration (MCHC) determinationOrdered By: Rita Mathew on 10-18-2024 MCHC (RBC) [Mass/Vol] 34.0 g/dL 32-36 [facility] Mean platelet volume determi nationOrdered By: [facility] on 10-18-2024 Platelet mean volume (Bld) [Entitic vol] 10.0 fL 6.2-12.0 [facility] Monocyte percentageOrdered B y: [facility] on 10-18-2024 Monocytes/100 WBC (Bld) 11.8 % High 0-10 [facility] Neutrophil percentageOrdered By: [facility] on 10-18-2024 Neutrophils/100 WBC (Bld) 26.2 % Low 47-70 [facility] Nucleated red blood cell per centageOrdered By: [facility] on 10-18-2024 Nucleated RBC/100 WBC (Bld) [Ratio] 0 % 0-5 [facility] Oncology Visit Reporton 10-02 Oncology Visit Report [facility] [address] [place] [address] OFFICE VISIT Date of Service: 10/18/24 1324 MR#: [id number] Acct: [id number] Name: RADHA BRENNAN Rep #: [id number] : 1955 From: Aide 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 Chronic back [...] magnesium oxi (more content not included)... Normal [facility] Platelet countOrdered By: Shahzad Mathew on 10-18-2024 Platelets (Bld) [#/Vol] 221 10*3/uL 150-450 [facility] Potassium measurement (mass/ volume)Ordered By: Rita Mathew on 10-18-2024 Potassium (Unsp spec) [Mass/Vol] 4.0 mmol/L 3.3-5.1 [facility] RBC Auto (Bld) [#/Vol]Ordere d By: Rita Mathew on 10-18-2024 RBC (Bld) [#/Vol] 3.81 10*6/uL Low 4.6-6.2 [facility] Serum creatinine measurement (mass/volume)Ordered By: Rita Mathew on 10-18-2024 Creatinine [Mass/Vol] 0.96 mg/dL 0.70-1.20 [facility] Serum globulin measurementOr dered By: Rita Mathew on 10-18-2024 Globulin (S) [Mass/Vol] 2.8 g/dL 2.2-4.2 [facility] Serum glucose measurement (m ass/volume)Ordered By: Rita Mathew on 10-18-2024 Glucose [Mass/Vol] 101 mg/dL High 70-99 [facility] Serum or plasma alanine vieyra otransferase (ALT) measurementOrdered By: Rita Mathew on 10-18-2024 ALT [Catalytic activity/Vol] 44 U/L <47 [facility] Serum or plasma albumin sadi urement (mass/volume)Ordered By: Rita Mathew on 10-18-2024 Albumin [Mass/Vol] 3.8 g/dL 3.4-4.8 [facility] Serum or plasma albumin/glob ulin mass ratioOrdered By: Rita Mathew on 10-18-2024 Albumin/Globulin [Mass ratio] 1.4 {ratio} 0.9-2.4 [facility] Serum or plasma alkaline amber sphatase measurementOrdered By: Rita Mathew on 10-18-2024 ALP [Catalytic activity/Vol] 105 U/L 40-129 [facility] Serum or plasma calcium sadi urement (mass/volume)Ordered By: Rita Mathew on 10-18-2024 Calcium [Mass/Vol] 8.9 mg/dL 7.6-11.0 [facility] Serum or plasma urea nitroge n measurement (mass/volume)Ordered By: Rita Mathew on 10-18-2024 Urea nitrogen [Mass/Vol] 22 mg/dL High 4-19 [facility] Sodium levelOrdered By: Rhys Mathew on 10-18-2024 Sodium [Moles/Vol] 140 mmol/L 133-145 [facility] Total proteinOrdered By: Mihai Mathew on 10-18-2024 Protein [Mass/Vol] 6.5 g/dL 5.9-8.4 [facility] White blood cell (WBC) count Ordered By: Rita Mathew on 10-18-2024 WBC (Bld) [#/Vol] 13.2 10*3/uL High 4.4-11.0 [facility] Cardiology Visit Reporton Cardiology Visit Report [facility] [address] [place] [address] OFFICE VISIT Date of Service: 10/12/24 MR#: [id number] Acct: [id number] Name: RADHA BRENNAN Rep #: [id number] : 1955 Provider: DEYSI Davison Age/Sex: 69/M Location: [facility] Status: Signed Agree with assessment and plan as outlined. HPI HPI History of Present Illness Details: Radha Brennan is a 69-year-old male who presents to office today for follow-up for monitoring his cardiovascular health. Patient has a history of coronary artery disease status post PTCA/ZOLTAN to the mid LAD and proximal diagonal in October 2017, status post CABG at [facility] 09/21/2021 receiving RIBEIRO to the LAD, ELIEL to the diagonal branch 1, SVG to the diagonal branch 2. He has a history of mild global LV dysfunction, atrial septal aneurysm, hyperlipidemia, alcohol withdrawal seizures, tremors and tobacco abuse. 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 Accompanied by: Self Is patient in pain?: No Allergies bee venom protein (honey bee) Allergy (Severe, Verified 10/12/24 14:43) Anaphylaxis tuberculin, purified protein deriva Allergy (Severe, Verified 10/12/24 14:43) Swelling Have you fallen in the past year?: Yes Nurse's Note: Patient does not know what medications he's taking 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 Chronic back pain Atrial septal aneurysm Abnormal electrocardiogram CVA (cerebral vascular accident) Nicotine dependence Surgical History History of cardiac catheterization Hx of neck surgery History of coronary artery bypass surgery ( 09/21/21) S/P triple vessel (more content not included)... Normal [facility] CT HEAD OR BRAIN W/O CONTRAS Ton [...] 10/04/2024 11:49:57 AM Ordering Provider: PARISH GRAFF Normal [facility] .Auto Diffon 09-21-2024 Basophil, Absolute 0.1 10 3/mcL Normal 0.0-0.[address] [facility] Comment on above: Performed By: #### C K, DIMER, LIP, MDW, TROPHS, CBC, CMP, ANEU, ADIFF, GFR ####[facility] [address] [place], [place] [address] Basophils/100 WBC (Bld) 0.4 % Normal 0.0-2.5 [facility] Comment on above: Performed By: #### C K, DIMER, LIP, MDW, TROPHS, CBC, CMP, ANEU, ADIFF, GFR ####[facility] [address] [place], [place] [address] Eosinophil, Absolute 0.7 10 3/mcL Normal 0.0-0.7 [facility] Comment on above: Performed By: #### C K, DIMER, LIP, MDW, TROPHS, CBC, CMP, ANEU, ADIFF, GFR ####[facility] [address] [place], [place] [address] Eosinophils/100 WBC (Bld) 5.0 % Normal 0.0-6.0 [facility] Comment on above: Performed By: #### C K, DIMER, LIP, MDW, TROPHS, CBC, CMP, ANEU, ADIFF, GFR ####[facility] [address] [place], [place] [address] Lymphocytes/100 WBC (Bld) 47.0 % High 20.0-40.0 [facility] Comment on above: Performed By: #### C K, DIMER, LIP, MDW, TROPHS, CBC, CMP, ANEU, ADIFF, GFR ####[facility] [address] [place], [place] [address] Monocyte, Absolute 0.7 10 3/mcL Normal 0.1-1.[address] [facility] Comment on above: Performed By: #### C K, DIMER, LIP, MDW, TROPHS, CBC, CMP, ANEU, ADIFF, GFR ####[facility] [address] [place], [place] [address] Monocytes/100 WBC (Bld) 5.4 % Normal 2.0-13.0 [facility] Comment on above: Performed By: #### C K, DIMER, LIP, MDW, TROPHS, CBC, CMP, ANEU, ADIFF, GFR ####[facility] [address] [place], [place] [address] Neutrophils/100 WBC (Bld) 42.2 % Low 50.0-75.0 [facility] Comment on above: Performed By: #### C K, DIMER, LIP, MDW, TROPHS, CBC, CMP, ANEU, ADIFF, GFR ####[facility] [address] [place], [place] [address] Lymphocyte, Absolute 6.6 10 3/mcL High 0.9-4.3 [facility] Comment on above: Performed By: #### C K, DIMER, LIP, MDW, TROPHS, CBC, CMP, ANEU, ADIFF, GFR ####[place] [address] [place], [place] [address] .GFRon 09-21-2024 Estimated Glomerular Filtration Rate 88 ml/min/1.73sqm Normal [facility] Comment on above: Result Comment: Stages of [...] MDW, TROPHS, CBC, CMP, ANEU, ADIFF, GFR ####[facility] [place], [place] [address] .MDWon 09-21-2024 Monocyte Distribution Width 21.83 High 0.00-20.00 [facility] Comment on above: Result Comment: For adults in ED, MDW>20.0 may be associated with a higher risk of sepsis during the first 12hrs of hospital admission Performed By: #### C K, DIMER, LIP, MDW, TROPHS, CBC, CMP, ANEU, ADIFF, GFR ####[facility] [place], [place] [address] .NEUABSon 09-21-2024 Neutrophil, Absolute 5.9 10 3/mcL Normal 2.3-8.1 [facility] Comment on above: Performed By: #### C K, DIMER, LIP, MDW, TROPHS, CBC, CMP, ANEU, ADIFF, GFR ####[place] [address] [place] [address] CBCon 09-21-2024 Erythrocyte distribution width (RBC) [Ratio] 13.6 % Normal 11.5-15.5 [facility] Comment on above: Performed By: #### C K, DIMER, LIP, MDW, TROPHS, CBC, CMP, ANEU, ADIFF, GFR ####[place] [address] [place] [address] Hematocrit (Bld) [Volume fraction] 38.0 % Low 40.0-52.0 [facility] Comment on above: Performed By: #### Johanny K, DIMER, LIP, MDW, TROPHS, CBC, CMP, ANEU, ADIFF, GFR ####[place] [address] Hgb 12.7 G/dL Low 13.0-17.5 [facility] Comment on above: Performed By: #### C K, DIMER, LIP, MDW, TROPHS, CBC, CMP, ANEU, ADIFF, GFR ####[place] [address] [place] [address] MCH (RBC) [Entitic mass] 33.4 pg High 27.0-33.0 [facility] Comment on above: Performed By: #### C K, DIMER, LIP, MDW, TROPHS, CBC, CMP, ANEU, ADIFF, GFR ####[place] [address] MCHC 33.4 G/dL Normal 32.0-36.0 [facility] Comment on above: Performed By: #### C K, DIMER, LIP, MDW, TROPHS, CBC, CMP, ANEU, ADIFF, GFR ####[place] [address] MCV (RBC) [Entitic vol] 99.9 fL Normal 81.0-100.0 [facility] Comment on above: Performed By: #### C K, DIMER, LIP, MDW, TROPHS, CBC, CMP, ANEU, ADIFF, GFR ####[address] [place], [place] [address] Platelet 204 10 3/mcL Normal 150-450 [facility] Comment on above: Performed By: #### Johanny K, DIMER, LIP, MDW, TROPHS, CBC, CMP, ANEU, ADIFF, GFR ####[facility] [address] [place], [place] [address] Platelet mean volume (Bld) [Entitic vol] 8.3 fL Normal 6.4-10.5 [facility] Comment on above: Performed By: #### Johanny Rivera, DIMER, LIP, MDW, TROPHS, CBC, CMP, ANEU, ADIFF, GFR ####[facility] [place], [place] [address] RBC 3.80 10 6/mcL Low 4.50-6.00 [facility] Comment on above: Performed By: #### Johanny Rivera, DIMER, LIP, MDW, TROPHS, CBC, CMP, ANEU, ADIFF, GFR ####[place] [address] [place], [place] [address] WBC 14.0 10 3/mcL High 4.5-10.8 [facility] Comment on above: Performed By: #### Johanny Rivera, DIMER, LIP, MDW, TROPHS, CBC, CMP, ANEU, ADIFF, GFR ####[facility] [address] [place], [place] [address] CKon 09-21-2024 CK [Catalytic activity/Vol] 69 U/L Normal 39-308 [facility] Comment on above: Performed By: #### Johanny Rivera, DIMER, LIP, MDW, TROPHS, CBC, CMP, ANEU, ADIFF, GFR ####[address] [place], [place] [address] CMPon 09-21-2024 Albumin Level 3.2 G/dL Low 3.4-4.8 [facility] Comment on above: Performed By: #### C K, DIMER, LIP, MDW, TROPHS, CBC, CMP, ANEU, ADIFF, GFR ####[place] [place], [place] [address] Albumin/Globulin [Mass ratio] 0.9 {ratio} Low 1.1-2.5 [facility] Comment on above: Performed By: #### C K, DIMER, LIP, MDW, TROPHS, CBC, CMP, ANEU, ADIFF, GFR ####[address] [address] ALP [Catalytic activity/Vol] 109 U/L Normal 40-135 [facility] Comment on above: Performed By: #### C K, DIMER, LIP, MDW, TROPHS, CBC, CMP, ANEU, ADIFF, GFR ####[place] [place], [place] [address] ALT [Catalytic activity/Vol] 43 U/L Normal 16-63 [facility] Comment on above: Performed By: #### C K, DIMER, LIP, MDW, TROPHS, CBC, CMP, ANEU, ADIFF, GFR ####[address] [address] AST [Catalytic activity/Vol] 22 U/L Normal 10-40 [facility] Comment on above: Performed By: #### C K, DIMER, LIP, MDW, TROPHS, CBC, CMP, ANEU, ADIFF, GFR ####[address] [address] Bili Total 0.4 mg/dL Normal 0.2-1.0 [facility] Comment on above: Result Comment: Use of this assay is not recommended for patients undergoing treatment with eltrombopag due to the potential for falsely elevated results. Performed By: #### C K, DIMER, LIP, MDW, TROPHS, CBC, CMP, ANEU, ADIFF, GFR ####[facility] [address] [place], [place] [address] BUN/Creatinine Ratio 14 ratio Normal 7-[address] [facility] Comment on above: Performed By: #### C K, DIMER, LIP, MDW, TROPHS, CBC, CMP, ANEU, ADIFF, GFR ####[address] [address] Calcium [Mass/Vol] 8.2 mg/dL Low 8.4-10.2 [facility] Comment on above: Performed By: #### C K, DIMER, LIP, MDW, TROPHS, CBC, CMP, ANEU, ADIFF, GFR ####[place] [address] Chloride [Moles/Vol] 105 mmol/L Normal 98-[address] [facility] Comment on above: Performed By: #### C K, DIMER, LIP, MDW, TROPHS, CBC, CMP, ANEU, ADIFF, GFR ####[place] [address] CO2 [Moles/Vol] 31 mmol/L Normal 23-31 [facility] Comment on above: Performed By: #### C K, DIMER, LIP, MDW, TROPHS, CBC, CMP, ANEU, ADIFF, GFR ####[place] [address] Creatinine [Mass/Vol] 0.93 mg/dL Normal 0.67-1.17 [facility] Comment on above: Performed By: #### C K, DIMER, LIP, MDW, TROPHS, CBC, CMP, ANEU, ADIFF, GFR ####[place] [address] Electrolyte Balance 2.0 mEq/L Low 4.0-15.0 [facility] Comment on above: Performed By: #### C K, DIMER, LIP, MDW, TROPHS, CBC, CMP, ANEU, ADIFF, GFR ####[place] [address] Globulin 3.5 G/dL Normal 2.7-4.4 [facility] Comment on above: Performed By: #### C K, DIMER, LIP, MDW, TROPHS, CBC, CMP, ANEU, ADIFF, GFR ####[address] [place], [place] [address] Glucose [Mass/Vol] 72 mg/dL Low 83-110 [facility] Comment on above: Performed By: #### C K, DIMER, LIP, MDW, TROPHS, CBC, CMP, ANEU, ADIFF, GFR ####[address] [place], [place] [address] Potassium [Moles/Vol] 3.7 mmol/L Normal 3.5-5.1 [facility] Comment on above: Performed By: #### C K, DIMER, LIP, MDW, TROPHS, CBC, CMP, ANEU, ADIFF, GFR ####[address] [place], [place] [address] Sodium [Moles/Vol] 138 mmol/L Normal 136-145 [facility] Comment on above: Performed By: #### C K, DIMER, LIP, MDW, TROPHS, CBC, CMP, ANEU, ADIFF, GFR ####[address] [place], [place] [address] Total Protein 6.7 G/dL Normal 6.4-8.2 [facility] Comment on above: Performed By: #### C K, DIMER, LIP, MDW, TROPHS, CBC, CMP, ANEU, ADIFF, GFR ####[address] [place], [place] [address] Urea nitrogen [Mass/Vol] 13 mg/dL Normal 7-18 [facility] Comment on above: Performed By: #### C K, DIMER, LIP, MDW, TROPHS, CBC, CMP, ANEU, ADIFF, GFR ####[place] [address] [place], [place] [address] CT HEAD OR BRAIN W/O CONTRAS Ton [...] 6:23:23 PM Ordering Provider: GARY KRUSE Normal [facility] CVFLURVon 09-21-2024 FLU A PCR Negative Normal Negative [facility] Comment on above: Performed By: #### C VFLURV ####[place] [address] FLU B PCR Negative Normal Negative [facility] Comment on above: Performed By: #### C VFLURV ####[place] [address] [place] [address] RSV PCR Negative Normal Negative [facility] Comment on above: Performed By: #### C VFLURV ####[place] [address] [place] [address] SARS-CoV-2 (COVID-19) RNA LATRICE+probe Ql (Unsp spec) Negative Normal Negative [facility] Comment on above: Result Comment: Resu lts [...] positive results. Performed By: #### C VFLURV ####[facility] [place], [place] [address] DIMERon 09-21-2024 D-Dimer <200 Normal 0-230 [facility] Comment on above: Order Comment: Short draw [...] MDW, TROPHS, CBC, CMP, ANEU, ADIFF, GFR ####[facility] [place], [place] [address] LABORATORYOrdered By: Nelsy Blanchard on 09-21-2024 Blood Glucose Testing Reason Routine (09/21/24 6:37 PM) [facility] Work Phone: Glucose [Mass/Vol] 134 mg/dL High 82 - 115 mg/dL [facility] Work Phone: Time of Stated Blood Glucose [phone] [facility] Work Phone: LABORATORYOrdered By: Luda Christensen [...] a homogeneous sandwich chemiluminescent immunoassay based on [email or web address] technology. Urea nitrogen [Mass/Vol] 13 mg/dL Normal 7 - 18 mg/dL AO ADM SS Urea nitrogen/Creatinine [Mass ratio] 14 ratio Normal 7 - 27 ratio AO ADM SS WBC (Bld) [#/Vol] 14.0 103/mcL High 4.5 - 10.8 10^3/mcL AO Workflow SS LIPon 09-21-2024 Lipase Level 20 U/L Normal 16-77 [facility] Comment on above: Performed By: #### C K, DIMER, LIP, MDW, TROPHS, CBC, CMP, ANEU, ADIFF, GFR ####[address] [place], [place] [address] TROPHSon 09-21-2024 High Sensitivity Troponin I 6 ng/L Normal 0-76 [facility] Comment on above: Result Comment: High Sensitive Troponin I Reference Ranges: Female: 0-51 ng/L Male: 0-76 ng/L Testing performed on Dimension EX using a homogeneous sandwich chemiluminescent immunoassay based on [email or web address] technology. Performed By: #### C K, DIMER, LIP, MDW, TROPHS, CBC, CMP, ANEU, ADIFF, GFR ####[address] [place], [place] [address] UAon 09-21-2024 Color (U) Yellow Normal [facility] Comment on above: Performed By: #### U A ####[address] [place], [place] [address] Glucose (U) [Mass/Vol] Negative Normal Negative [facility] Comment on above: Performed By: #### U A ####[address] [place] [address] Ketones Ql (U) Negative Normal Negative [facility] Comment on above: Performed By: #### U A ####[address] [place] [address] UA Appear Clear Normal Clear [facility] Comment on above: Performed By: #### U A ####[address] [place] [address] UA Blood Trace Normal Negative [facility] Comment on above: Performed By: #### U A ####[address] [place] [address] UA Leuk Est Negative Normal Negative [facility] Comment on above: Performed By: #### U A ####[address] [place] [address] UA Nitrite Negative Normal Negative [facility] Comment on above: Performed By: #### U A ####[place] [address] [address] UA pH 6.0 Normal 5.0 - 8.0 [facility] Comment on above: Performed By: #### U A ####[place] [address] [address] UA Protein Negative Normal Negative [facility] Comment on above: Performed By: #### U A ####[address] [place] [address] UA Spec Grav <=1.005 Abnormal 1.015-1.025 [facility] Comment on above: Performed By: #### U A ####[address] [place] [address] UA Specimen Type Clean Catch Normal [facility] Comment on above: Performed By: #### U A ####[address] [place] [address] UA Urobilinogen 0.2 E.U./dL Normal 0.2-1.0 [facility] Comment on above: Performed By: #### U A ####[address] [place] [address] Urobilinogen (U) [Mass/Vol] Negative Normal Negative [facility] Comment on above: Performed By: #### U A ####[facility] [place], [place] [address] XR CHEST 1 VIEWon 09-21-2024 XR CHEST [...] Date: 09/21/2024 6:08:55 PM Ordering Provider: GARY Fine [facility] XR SPINE LUMBAR AP/LATon XR SPINE LUMBAR AP/LAT ORIGINAL EXAMINATION: 2 XRAY VIEWS OF THE LUMBAR SPINE 09/21/2024 6:02 pm COMPARISON: CT abdomen pelvis August 04, 2024 HISTORY: ORDERING SYSTEM PROVIDED HISTORY: Reason for Exam: fall FINDINGS: Vertebral body heights and alignment are unchanged. Degenerative change of the spine. IMPRESSION: No acute osseous abnormality by radiograph. Interpreted by: Anastacio Ramso Preliminary Report By: Anastacio Ramos Electronically signed By Anastacio Ramos Dictated Date: 09/21/2024 6:07:38 PM Prelim Date: 09/21/2024 6:08:32 PM Sign Date: 09/21/2024 6:08:32 PM Ordering Provider: GARY KRUSE [facility] [id number] 08-30-2024 Vitamin B1 Whl Bld 180.9 nmol/L Normal 66.5-200.[address] [facility] Comment on above: Result Comment: This test was developed and its performance characteristics determined by [facility]. It has not been cleared or approved by the Food and Drug Administration. Performed At: [facility] [id number] [place] MD Ph:[phone] Performed By: #### P SA, CBC, FT4, LIPID, MORPH, A1C, GFR, DIFF, [id number], CMP, TSH ####[place] [address]#### HCV1, B12 ####[place] [address] .GFRon 08-28-2024 Estimated Glomerular Filtration Rate 78 ml/min/1.73sqm Normal [facility] Comment on above: Result Comment: Stages of [...] CBC, FT4, LIPID, MORPH, A1C, GFR, DIFF, [id number], CMP, TSH ####[place] [address]#### HCV1, B12 ####[place] [address] .Manual Diffon 08-28-2024 Atypical Lymphs 4.0 % Normal 0.0-5.0 [facility] Comment on above: Performed By: #### P SA, CBC, FT4, LIPID, MORPH, A1C, GFR, DIFF, [id number], CMP, TSH ####[place] [address]#### HCV1, B12 ####[place] [address] Aytpical Lymph, Abs Manual 0.5 10 3/mcL Normal 0.0-0.5 [facility] Comment on above: Performed By: #### P SA, CBC, FT4, LIPID, MORPH, A1C, GFR, DIFF, [id number], CMP, TSH ####[place] [address]#### HCV1, B12 ####[place] [address] Basophil %, Manual 0.0 % Normal 0.0-2.5 [facility] Comment on above: Performed By: #### P SA, CBC, FT4, LIPID, MORPH, A1C, GFR, DIFF, [id number], CMP, TSH ####[place] [address]#### HCV1, B12 ####[place] [address] Basophil, Abs Manual 0.0 10 3/mcL Normal 0.0-0.3 [facility] Comment on above: Performed By: #### P SA, CBC, FT4, LIPID, MORPH, A1C, GFR, DIFF, [id number], CMP, TSH ####[place] [address]#### HCV1, B12 ####[place] [address] Eosinophil %, Manual 1.0 % Normal 0.0-6.[address] [facility] Comment on above: Performed By: #### P SA, CBC, FT4, LIPID, MORPH, A1C, GFR, DIFF, [id number], CMP, TSH ####[place] [address]#### HCV1, B12 ####[place] [address] Eosinophil, Abs Manual 0.1 10 3/mcL Normal 0.0-0.7 [facility] Comment on above: Performed By: #### P SA, CBC, FT4, LIPID, MORPH, A1C, GFR, DIFF, 704010, CMP, TSH ####[place] [address]#### HCV1, B12 ####[address] [address] Lymphocyte %, Manual 60.0 % High 20.0-40.[address] [facility] Comment on above: Performed By: #### P SA, CBC, FT4, LIPID, MORPH, A1C, GFR, DIFF, [id number], CMP, TSH ####[place] [address]#### HCV1, B12 ####[address] [address] Lymphocyte, Abs Manual 7.6 10 3/mcL High 0.9-4.3 [facility] Comment on above: Performed By: #### P SA, CBC, FT4, LIPID, MORPH, A1C, GFR, DIFF, [id number], CMP, TSH ####[place] [address]#### HCV1, B12 ####[place] [address] Monocyte %, Manual 3.0 % Normal 2.0-13.0 [facility] Comment on above: Performed By: #### P SA, CBC, FT4, LIPID, MORPH, A1C, GFR, DIFF, [id number], CMP, TSH ####[place] [address]#### HCV1, B12 ####[address] [address] Monocyte, Abs Manual 0.4 10 3/mcL Normal 0.1-1.4 [facility] Comment on above: Performed By: #### P SA, CBC, FT4, LIPID, MORPH, A1C, GFR, DIFF, [id number], CMP, TSH ####[place] [address]#### HCV1, B12 ####[address] [address] Neutrophil %, Manual 32.0 % Low 50.0-75.[address] [facility] Comment on above: Performed By: #### P SA, CBC, FT4, LIPID, MORPH, A1C, GFR, DIFF, [id number], CMP, TSH ####[place] [address]#### HCV1, B12 ####[place] [address] Neutrophil, Abs Manual 4.1 10 3/mcL Normal 2.3-8.1 [facility] Comment on above: Performed By: #### P SA, CBC, FT4, LIPID, MORPH, A1C, GFR, DIFF, [id number], CMP, TSH ####[place] [address]#### HCV1, B12 ####[place] [address] Nucleated RBC 0.0 /100 WBC Normal [facility] Comment on above: Performed By: #### P SA, CBC, FT4, LIPID, MORPH, A1C, GFR, DIFF, [id number], CMP, TSH ####[place] [address]#### HCV1, B12 ####[place] [address] .Morphon 08-28-2024 Platelet Estimate Normal Normal [facility] Comment on above: Performed By: #### P SA, CBC, FT4, LIPID, MORPH, A1C, GFR, DIFF, [id number], CMP, TSH ####[place] [address]#### HCV1, B12 ####[place] [address] RBC morphology finding Nom (Bld) Normal Normal [facility] Comment on above: Performed By: #### P SA, CBC, FT4, LIPID, MORPH, A1C, GFR, DIFF, [id number], CMP, TSH ####[place] [address]#### HCV1, B12 ####[place] [address] Smudge Cells 1+ Normal [facility] Comment on above: Performed By: #### P SA, CBC, FT4, LIPID, MORPH, A1C, GFR, DIFF, [id number], CMP, TSH ####[place] [address]#### HCV1, B12 ####[place] [address] A1Con 08-28-2024 Glucose [Mass/Vol] 126 mg/dL Normal [facility] Comment on above: Order Comment: [place] [facility] Result Comment: Teena mated Average Glucose calculated by equation ((28.7xA1C)-46.7) Estimated average glucose (eAG) is a calculated value from Hemoglobin A1C and is passenger relations representative of the average blood glucose level in the last 2-3 month period. Normal range: less than 114 mg/dL Performed By: #### P SA, CBC, FT4, LIPID, MORPH, A1C, GFR, DIFF, [id number], CMP, TSH ####[place] [address]#### HCV1, B12 ####[place] [address] HbA1c (Bld) [Mass fraction] 6.0 % Normal 4.3-6.4 [facility] Comment on above: Order Comment: [place] [facility] Performed By: #### P SA, CBC, FT4, LIPID, MORPH, A1C, GFR, DIFF, [id number], CMP, TSH ####[place] [address]#### HCV1, B12 ####[place] [address] B12on 08-28-2024 Cobalamin (Vitamin B12) [Mass/Vol] 1366 pg/mL High 211-911 [facility] Comment on above: Performed By: #### P SA, CBC, FT4, LIPID, MORPH, A1C, GFR, DIFF, [id number], CMP, TSH ####[place] [address]#### HCV1, B12 ####[place] [address] CBCon 08-28-2024 Erythrocyte distribution width (RBC) [Ratio] 13.7 % Normal 11.5-15.5 [facility] Comment on above: Order Comment: cc re [facility]ults to [facility] Performed By: #### P SA, CBC, FT4, LIPID, MORPH, A1C, GFR, DIFF, [id number], CMP, TSH ####[place] [address]#### HCV1, B12 ####[place] [address] Hematocrit (Bld) [Volume fraction] 41.4 % Normal 40.0-52.0 [facility] Comment on above: Order Comment: cc re [facility]ults to [facility] Performed By: #### P SA, CBC, FT4, LIPID, MORPH, A1C, GFR, DIFF, 948644, CMP, TSH ####[place] [address]#### HCV1, B12 ####[place] [address] Hgb 13.8 G/dL Normal 13.0-17.5 [facility] Comment on above: Order Comment: cc re [facility]ults to [facility] Performed By: #### P SA, CBC, FT4, LIPID, MORPH, A1C, GFR, DIFF, [id number], CMP, TSH ####[place] [address]#### HCV1, B12 ####[place] [address] MCH (RBC) [Entitic mass] 33.7 pg High 27.0-33.0 [facility] Comment on above: Order Comment: cc re [facility]ults to [facility] Performed By: #### P SA, CBC, FT4, LIPID, MORPH, A1C, GFR, DIFF, 992203, CMP, TSH ####[place] [address]#### HCV1, B12 ####[place] [address] MCHC 33.3 G/dL Normal 32.0-36.0 [facility] Comment on above: Order Comment: cc re [facility]ults to [facility] Performed By: #### P SA, CBC, FT4, LIPID, MORPH, A1C, GFR, DIFF, [id number], CMP, TSH ####[place] [address]#### HCV1, B12 ####[place] [address] MCV (RBC) [Entitic vol] 101.0 fL High 81.0-100.0 [facility] Comment on above: Order Comment: cc re [facility]ults to [facility] Performed By: #### P SA, CBC, FT4, LIPID, MORPH, A1C, GFR, DIFF, [id number], CMP, TSH ####[place] [address]#### HCV1, B12 ####[place] [address] Platelet 194 10 3/mcL Normal 150-450 [facility] Comment on above: Order Comment: cc re [facility]ults to [facility] Performed By: #### P SA, CBC, FT4, LIPID, MORPH, A1C, GFR, DIFF, [id number], CMP, TSH ####[place] [address]#### HCV1, B12 ####[place] [address] Platelet mean volume (Bld) [Entitic vol] 8.6 fL Normal 6.4-10.5 [facility] Comment on above: Order Comment: cc re sults to [facility] Performed By: #### P SA, CBC, FT4, LIPID, MORPH, A1C, GFR, DIFF, [id number], CMP, TSH ####[place] [address]#### HCV1, B12 ####[place] [address] RBC 4.10 10 6/mcL Low 4.50-6.00 [facility] Comment on above: Order Comment: cc re [facility]ults to [facility] Performed By: #### P SA, CBC, FT4, LIPID, MORPH, A1C, GFR, DIFF, [id number], CMP, TSH ####[address] [address]#### HCV1, B12 ####[address] [address] WBC 12.7 10 3/mcL High 4.5-10.8 [facility] Comment on above: Order Comment: cc re [facility]ults to [facility] Performed By: #### P SA, CBC, FT4, LIPID, MORPH, A1C, GFR, DIFF, 389403, CMP, TSH ####[place] [address]#### HCV1, B12 ####[place] [address] CMPon 08-28-2024 Albumin Level 3.4 G/dL Normal 3.4-4.8 [facility] Comment on above: Order Comment: cc re [facility]ults to [facility] Performed By: #### P SA, CBC, FT4, LIPID, MORPH, A1C, GFR, DIFF, 784166, CMP, TSH ####[place] [address]#### HCV1, B12 ####[address] [address] Albumin/Globulin [Mass ratio] 1.0 {ratio} Low 1.1-2.5 [facility] Comment on above: Order Comment: cc re [facility]ults to [facility] Performed By: #### P SA, CBC, FT4, LIPID, MORPH, A1C, GFR, DIFF, [id number], CMP, TSH ####[address] [address]#### HCV1, B12 ####[address] [address] ALP [Catalytic activity/Vol] 95 U/L Normal 40-135 [facility] Comment on above: Order Comment: cc re [facility]ults to [facility] Performed By: #### P SA, CBC, FT4, LIPID, MORPH, A1C, GFR, DIFF, [id number], CMP, TSH ####[place] [address]#### HCV1, B12 ####[place] [address] ALT [Catalytic activity/Vol] 55 U/L Normal 16-63 [facility] Comment on above: Order Comment: cc re [facility]ults to [facility] Performed By: #### P SA, CBC, FT4, LIPID, MORPH, A1C, GFR, DIFF, [id number], CMP, TSH ####[place] [address]#### HCV1, B12 ####[place] [address] AST [Catalytic activity/Vol] 33 U/L Normal 10-40 [facility] Comment on above: Order Comment: cc re [facility]ults to [facility] Performed By: #### P SA, CBC, FT4, LIPID, MORPH, A1C, GFR, DIFF, [id number], CMP, TSH ####[place] [address]#### HCV1, B12 ####[place] [address] Bili Total 0.2 mg/dL Normal 0.2-1.0 [facility] Comment on above: Order Comment: cc re sults to [facility] Result Comment: Use of this assay is not recommended for patients undergoing treatment with eltrombopag due to the potential for falsely elevated results. Performed By: #### P SA, CBC, FT4, LIPID, MORPH, A1C, GFR, DIFF, [id number], CMP, TSH ####[place] [address]#### HCV1, B12 ####[place] [address] BUN/Creatinine Ratio 16 ratio Normal 7-[address] [facility] Comment on above: Order Comment: cc re sults to [facility] Performed By: #### P SA, CBC, FT4, LIPID, MORPH, A1C, GFR, DIFF, [id number], CMP, TSH ####[place] [address]#### HCV1, B12 ####[address] [address] Calcium [Mass/Vol] 8.8 mg/dL Normal 8.4-10.2 [facility] Comment on above: Order Comment: cc re [facility]ults to [facility] Performed By: #### P SA, CBC, FT4, LIPID, MORPH, A1C, GFR, DIFF, [id number], CMP, TSH ####[place] [address]#### HCV1, B12 ####[place] [address] Chloride [Moles/Vol] 105 mmol/L Normal 98-[address] [facility] Comment on above: Order Comment: cc re [facility]ults to [facility] Performed By: #### P SA, CBC, FT4, LIPID, MORPH, A1C, GFR, DIFF, [id number], CMP, TSH ####[place] [address]#### HCV1, B12 ####[place] [address] CO2 [Moles/Vol] 32 mmol/L High 23-31 [facility] Comment on above: Order Comment: cc re [facility]ults to [facility] Performed By: #### P SA, CBC, FT4, LIPID, MORPH, A1C, GFR, DIFF, [id number], CMP, TSH ####[place] [address]#### HCV1, B12 ####[place] [address] Creatinine [Mass/Vol] 1.03 mg/dL Normal 0.67-1.17 [facility] Comment on above: Order Comment: cc re sults to [facility] Performed By: #### P SA, CBC, FT4, LIPID, MORPH, A1C, GFR, DIFF, [id number], CMP, TSH ####[place] [address]#### HCV1, B12 ####[place] [address] Electrolyte Balance 3.0 mEq/L Low 4.0-15.0 [facility] Comment on above: Order Comment: cc re sults to [facility] Performed By: #### P SA, CBC, FT4, LIPID, MORPH, A1C, GFR, DIFF, [id number], CMP, TSH ####[place] [address]#### HCV1, B12 ####[place] [address] Globulin 3.4 G/dL Normal 2.7-4.4 [facility] Comment on above: Order Comment: cc re [facility]ults to [facility] Performed By: #### P SA, CBC, FT4, LIPID, MORPH, A1C, GFR, DIFF, [id number], CMP, TSH ####[place] [address]#### HCV1, B12 ####[place] [address] Glucose [Mass/Vol] 92 mg/dL Normal 83-110 [facility] Comment on above: Order Comment: cc re sults to [facility] Performed By: #### P SA, CBC, FT4, LIPID, MORPH, A1C, GFR, DIFF, 168796, CMP, TSH ####[place] [address]#### HCV1, B12 ####[place] [address] Potassium [Moles/Vol] 4.2 mmol/L Normal 3.5-5.1 [facility] Comment on above: Order Comment: cc re [facility]ults to [facility] Performed By: #### P SA, CBC, FT4, LIPID, MORPH, A1C, GFR, DIFF, 673144, CMP, TSH ####[place] [address]#### HCV1, B12 ####[place] [address] Sodium [Moles/Vol] 140 mmol/L Normal 136-145 [facility] Comment on above: Order Comment: cc re [facility]ults to [facility] Performed By: #### P SA, CBC, FT4, LIPID, MORPH, A1C, GFR, DIFF, 038497, CMP, TSH ####[place] [address]#### HCV1, B12 ####[place] [address] Total Protein 6.8 G/dL Normal 6.4-8.2 [facility] Comment on above: Order Comment: cc re [facility]ults to [facility] Performed By: #### P SA, CBC, FT4, LIPID, MORPH, A1C, GFR, DIFF, 132304, CMP, TSH ####[place] [address]#### HCV1, B12 ####[place] [address] Urea nitrogen [Mass/Vol] 16 mg/dL Normal 7-18 [facility] Comment on above: Order Comment: cc re [facility]ults to [facility] Performed By: #### P SA, CBC, FT4, LIPID, MORPH, A1C, GFR, DIFF, 011656, CMP, TSH ####[place] [address]#### HCV1, B12 ####[place] [address] FT4on 08-28-2024 Free T4 [Mass/Vol] 0.85 ng/dL Normal 0.76-1.46 [facility] Comment on above: Performed By: #### P SA, CBC, FT4, LIPID, MORPH, A1C, GFR, DIFF, 564809, CMP, TSH ####[place] [address]#### HCV1, B12 ####[place] [address] HCVon 08-28-2024 Hep C Ab Non-Reactive Normal Non-Reactive [facility] Comment on above: Performed By: #### P SA, CBC, FT4, LIPID, MORPH, A1C, GFR, DIFF, [id number], CMP, TSH ####[facility] [place], [place] [address]#### HCV1, B12 ####[place] [id number] [place] [address] Hep C Ab Int See Interp Normal [facility] Comment on above: Result Comment: Clinical Interpretation: [...] CBC, FT4, LIPID, MORPH, A1C, GFR, DIFF, [id number], CMP, TSH ####[place] [place] [id number]#### HCV1, B12 ####[place] [address] LABORATORYOrdered By: SYSTEM SYSTEM on 08-28-2024 Albumin [...] calculated value from Hemoglobin A1C and is passenger relations representative of the average blood glucose level [...] *NA* (08/28/24 9:32 AM) Invalid Interpretation Code Chemistry S Comment on above: Result Comment: [...] Ql Non-Reactive (08/28/24 9:32 AM) Normal Non-Reactive AH ADM SS LIPIDon 08-28-2024 Cholesterol [Mass/Vol] 106 mg/dL Normal 0-200 [facility] Comment on above: Order Comment: cc re [facility]ults to [facility] Result Comment: Chol esterol Reference Interval: Less than 200 Desirable 200-239 Borderline high risk 240 and above High risk Performed By: #### P SA, CBC, FT4, LIPID, MORPH, A1C, GFR, DIFF, [id number], CMP, TSH ####[place] [id number]#### HCV1, B12 ####[place] [address] Cholesterol in HDL [Mass/Vol] 54 mg/dL Normal 40-60 [facility] Comment on above: Order Comment: cc re sults to [facility] Performed By: #### P SA, CBC, FT4, LIPID, MORPH, A1C, GFR, DIFF, [id number], CMP, TSH ####[place] [id number]#### HCV1, B12 ####[address] [address] Cholesterol in LDL [Mass/Vol] 35 mg/dL Normal 0-130 [facility] Comment on above: Order Comment: cc re sults to [facility] Performed By: #### P SA, CBC, FT4, LIPID, MORPH, A1C, GFR, DIFF, [id number], CMP, TSH ####[place] [address]#### HCV1, B12 ####[address] [address] Triglyceride [Mass/Vol] 86 mg/dL Normal 0-150 [facility] Comment on above: Order Comment: cc re sults to [facility] Result Comment: Trig lyceride Reference Interval: Less than 150 Normal 150-199 Borderline high risk 200-499 High risk 500 or higher Very high risk Performed By: #### P SA, CBC, FT4, LIPID, MORPH, A1C, GFR, DIFF, [id number], CMP, TSH ####[place] [address]#### HCV1, B12 ####[place] [address] PSAon 08-28-2024 Prostate Specific Antigen 1.20 ng/mL Normal 0.00-4.00 [facility] Comment on above: Performed By: #### P SA, CBC, FT4, LIPID, MORPH, A1C, GFR, DIFF, [id number], CMP, TSH ####[place] [address]#### HCV1, B12 ####[place] [address] TSHon 08-28-2024 TSH Qn 5.17 m[IU]/L High 0.36-3.74 [facility] Comment on above: Performed By: #### P SA, CBC, FT4, LIPID, MORPH, A1C, GFR, DIFF, [id number], CMP, TSH ####[place] [address]#### HCV1, B12 ####[place] [address] .Auto Diffon 08-04-2024 Basophil, Absolute 0.0 10 3/mcL Normal 0.0-0.[address] [facility] Comment on above: Performed By: #### A DONALD, GFR, LIP, CBC, CMP, MDW, ADIFF ####[place] [address] Basophils/100 WBC (Bld) 0.3 % Normal 0.0-2.5 [facility] Comment on above: Performed By: #### A DONALD, GFR, LIP, CBC, CMP, MDW, ADIFF ####[place] [address] Eosinophil, Absolute 0.9 10 3/mcL High 0.0-0.7 [facility] Comment on above: Performed By: #### A DONALD, GFR, LIP, CBC, CMP, MDW, ADIFF ####[facility] [place], [place] [address] Eosinophils/100 WBC (Bld) 6.8 % High 0.0-6.0 [facility] Comment on above: Performed By: #### A DONALD, GFR, LIP, CBC, CMP, MDW, ADIFF ####[facility] [place], [place] [address] Lymphocyte, Absolute 5.8 10 3/mcL High 0.9-4.3 [facility] [place] Comment on above: Performed By: #### A DONALD, GFR, LIP, CBC, CMP, MDW, ADIFF ####[facility] [place], [place] [address] Lymphocytes/100 WBC (Bld) 46.3 % High 20.0-40.0 [facility] Comment on above: Performed By: #### A DONALD, GFR, LIP, CBC, CMP, MDW, ADIFF ####[facility] [place] [address] Monocyte, Absolute 0.6 10 3/mcL Normal 0.1-1.[address] [facility] Comment on above: Performed By: #### A DONALD, GFR, LIP, CBC, CMP, MDW, ADIFF ####[address] [address] Monocytes/100 WBC (Bld) 4.6 % Normal 2.0-13.0 [facility] Comment on above: Performed By: #### A DONALD, GFR, LIP, CBC, CMP, MDW, ADIFF ####[facility] [place], [place] [address] Neutrophils/100 WBC (Bld) 42.0 % Low 50.0-75.0 [facility] Comment on above: Performed By: #### A DONALD, GFR, LIP, CBC, CMP, MDW, ADIFF ####[facility] [place], [place] [address] .GFRon 08-04-2024 Estimated Glomerular Filtration Rate 76 ml/min/1.73sqm Normal [facility] Comment on above: Result Comment: Stages of [...] DONALD, GFR, LIP, CBC, CMP, MDW, ADIFF ####[facility] [address] [place], [place] [address] .MDWon 08-04-2024 Monocyte Distribution Width 19.66 Normal 0.00-20.00 [facility] Comment on above: Result Comment: For ED adult patients suspected of sepsis, MDW<=20.0 does not rule out sepsis or risk of sepsis Performed By: #### A DONALD, GFR, LIP, CBC, CMP, MDW, ADIFF ####[place] [address] [place], [place] [address] .NEUABSon 08-04-2024 Neutrophil, Absolute 5.2 10 3/mcL Normal 2.3-8.1 [facility] [place] Comment on above: Performed By: #### A DONALD, GFR, LIP, CBC, CMP, MDW, ADIFF ####[place] [address] [place], [place] [address] CBCon 08-04-2024 Erythrocyte distribution width (RBC) [Ratio] 13.5 % Normal 11.5-15.5 [facility] Comment on above: Performed By: #### A DONALD, GFR, LIP, CBC, CMP, MDW, ADIFF ####[place] [address] [place], [place] [address] Hematocrit (Bld) [Volume fraction] 39.4 % Low 40.0-52.0 [facility] Comment on above: Performed By: #### A DONALD, GFR, LIP, CBC, CMP, MDW, ADIFF ####[facility] [address] [place], [place] [address] Hgb 13.2 G/dL Normal 13.0-17.5 [facility] Comment on above: Performed By: #### A DONALD, GFR, LIP, CBC, CMP, MDW, ADIFF ####[facility] [place], [place] [address] MCH (RBC) [Entitic mass] 33.3 pg High 27.0-33.0 [facility] Comment on above: Performed By: #### A DONALD, GFR, LIP, CBC, CMP, MDW, ADIFF ####[address] [place], [place] [address] MCHC 33.4 G/dL Normal 32.0-36.0 [facility] Comment on above: Performed By: #### A DONALD, GFR, LIP, CBC, CMP, MDW, ADIFF ####[facility] [place], [place] [address] MCV (RBC) [Entitic vol] 99.7 fL Normal 81.0-100.0 [facility] Comment on above: Performed By: #### A DONALD, GFR, LIP, CBC, CMP, MDW, ADIFF ####[place] [address] [place], [place] [address] Platelet 223 10 3/mcL Normal 150-450 [facility] Comment on above: Performed By: #### A DONALD, GFR, LIP, CBC, CMP, MDW, ADIFF ####[facility] [place], [place] [address] Platelet mean volume (Bld) [Entitic vol] 8.5 fL Normal 6.4-10.5 [facility] Comment on above: Performed By: #### A DONALD, GFR, LIP, CBC, CMP, MDW, ADIFF ####[facility] [address] [place], [place] [address] RBC 3.96 10 6/mcL Low 4.50-6.00 [facility] Comment on above: Performed By: #### A DONALD, GFR, LIP, CBC, CMP, MDW, ADIFF ####[facility] [address] [place], [place] [address] WBC 12.5 10 3/mcL High 4.5-10.8 [facility] Comment on above: Performed By: #### A DONALD, GFR, LIP, CBC, CMP, MDW, ADIFF ####[address] [place], [place] [address] CMPon 08-04-2024 BUN/Creatinine Ratio 23 ratio Normal 7-[address] [facility] Comment on above: Performed By: #### A DONALD, GFR, LIP, CBC, CMP, MDW, ADIFF ####[facility] [place], [place] [address] Creatinine [Mass/Vol] 1.06 mg/dL Normal 0.67-1.17 [facility] Comment on above: Performed By: #### A DONALD, GFR, LIP, CBC, CMP, MDW, ADIFF ####[facility] [place], [place] [address] Albumin Level 3.5 G/dL Normal 3.4-4.8 [facility] Comment on above: Performed By: #### A DONALD, GFR, LIP, CBC, CMP, MDW, ADIFF ####[facility] [place], [place] [address] Albumin/Globulin [Mass ratio] 0.9 {ratio} Low 1.1-2.5 [facility] Comment on above: Performed By: #### A DONALD, GFR, LIP, CBC, CMP, MDW, ADIFF ####[facility] [place], [place] [address] ALP [Catalytic activity/Vol] 96 U/L Normal 40-135 [facility] Comment on above: Performed By: #### A DONALD, GFR, LIP, CBC, CMP, MDW, ADIFF ####[facility] [place], [place] [address] ALT [Catalytic activity/Vol] 26 U/L Normal 16-63 [facility] Comment on above: Performed By: #### A DONALD, GFR, LIP, CBC, CMP, MDW, ADIFF ####[place] [address] [place], [place] [address] AST [Catalytic activity/Vol] 14 U/L Normal 10-40 [facility] Comment on above: Performed By: #### A DONALD, GFR, LIP, CBC, CMP, MDW, ADIFF ####[place] [address] [place], [place] [address] Bili Total 0.3 mg/dL Normal 0.2-1.0 [facility] Comment on above: Result Comment: Use of this assay is not recommended for patients undergoing treatment with eltrombopag due to the potential for falsely elevated results. Performed By: #### A DONALD, GFR, LIP, CBC, CMP, MDW, ADIFF ####[place] [address] [place], [place] [address] Calcium [Mass/Vol] 8.9 mg/dL Normal 8.4-10.2 [facility] Comment on above: Performed By: #### A DONALD, GFR, LIP, CBC, CMP, MDW, ADIFF ####[place] [address] [place], [place] [address] Chloride [Moles/Vol] 105 mmol/L Normal 98-[address] [facility] Comment on above: Performed By: #### A DONALD, GFR, LIP, CBC, CMP, MDW, ADIFF ####[address] [address] CO2 [Moles/Vol] 29 mmol/L Normal 23-31 [facility] Comment on above: Performed By: #### A DONALD, GFR, LIP, CBC, CMP, MDW, ADIFF ####[place] [address] [place], [place] [address] Electrolyte Balance 6.0 mEq/L Normal 4.0-15.0 [facility] Comment on above: Performed By: #### A DONALD, GFR, LIP, CBC, CMP, MDW, ADIFF ####[address] [address] Globulin 3.7 G/dL Normal 2.7-4.4 [facility] Comment on above: Performed By: #### A DONALD, GFR, LIP, CBC, CMP, MDW, ADIFF ####[facility] [place], [place] [address] Glucose [Mass/Vol] 120 mg/dL High 83-110 [facility] Comment on above: Performed By: #### A DONALD, GFR, LIP, CBC, CMP, MDW, ADIFF ####[facility] [place], [place] [address] Potassium [Moles/Vol] 4.8 mmol/L Normal 3.5-5.1 [facility] Comment on above: Performed By: #### A DONALD, GFR, LIP, CBC, CMP, MDW, ADIFF ####[place] [address] [place], [place] [address] Sodium [Moles/Vol] 140 mmol/L Normal 136-145 [facility] Comment on above: Performed By: #### A DONALD, GFR, LIP, CBC, CMP, MDW, ADIFF ####[place] [address] [place], [place] [address] Total Protein 7.2 G/dL Normal 6.4-8.2 [facility] Comment on above: Performed By: #### A DONALD, GFR, LIP, CBC, CMP, MDW, ADIFF ####[place] [address] [place], [place] [address] Urea nitrogen [Mass/Vol] 24 mg/dL High 7-18 [facility] Comment on above: Performed By: #### A DONALD, GFR, LIP, CBC, CMP, MDW, ADIFF ####[place] [address] [place], [place] [address] CT ABD/PELVIS W/ IV CONTRAST ONLYon 08-04-2024 [...] 08/04/2024 3:08:59 PM Ordering Provider: FRANK Fine [facility]ATORYOrdered By: Ruby Rosario on 08-04-2024 Appearance [...] 08-04-2024 Lipase Level 134 U/L High 16-77 [facility] Comment on above: Performed By: #### A DONALD, GFR, LIP, CBC, CMP, MDW, ADIFF ####[address] [place], [place] [address] UAon 08-04-2024 Color (U) Yellow Normal [facility] Comment on above: Performed By: #### U A, UAMIC ####[address] [place] [address] Glucose (U) [Mass/Vol] Negative Normal Negative [facility] Comment on above: Performed By: #### U A, UAMIC ####[address] [place] [address] Ketones Ql (U) Negative Normal Negative [facility] Comment on above: Performed By: #### U A, UAMIC ####[address] [place] [address] UA Appear Slightly Cloudy Abnormal Clear [facility] Comment on above: Performed By: #### U A, UAMIC ####[address] [place] [address] UA Blood Small Abnormal Negative [facility] Comment on above: Performed By: #### U A, UAMIC ####[address] [place] [address] UA Leuk Est Moderate Abnormal Negative [facility] Comment on above: Performed By: #### U A, UAMIC ####[address] [place] [address] UA Nitrite Positive Abnormal Negative [facility] Comment on above: Performed By: #### U A, UAMIC ####[address] [place] [place] [address] UA pH 6.0 Normal 5.0 - 8.0 [facility] Comment on above: Performed By: #### U A, UAMIC ####[address] [place] [place] [address] UA Protein Negative Normal Negative [facility] Comment on above: Performed By: #### U A, UAMIC ####[address] [place] [address] UA Spec Grav 1.010 Abnormal 1.015-1.025 [facility] Comment on above: Performed By: #### U A, UAMIC ####[address] [place] [address] UA Specimen Type Void Normal [facility] Comment on above: Performed By: #### U A, UAMIC ####[address] [place] [address] UA Urobilinogen 0.2 E.U./dL Normal 0.2-1.0 [facility] Comment on above: Performed By: #### U A, UAMIC ####[address] [place] [place] [address] Urobilinogen (U) [Mass/Vol] Negative Normal Negative [facility] Comment on above: Performed By: #### U A, UAMIC ####[address] [place] [address] UAMICon 08-04-2024 UA Bacteria 3+ /hpf Abnormal Negative [facility] Comment on above: Performed By: #### U A, UAMIC ####[address] [place] [place] [address] UA RBC 5-10 Abnormal 0-2 [facility] Comment on above: Performed By: #### U A, UAMIC ####[address] [place] [address] UA Squam Epithelial 3-5 Normal 0-20 [facility] Comment on above: Performed By: #### U A, UAMIC ####[address] [place] [address] UA WBC 50-100 Abnormal 0-5 [facility] Comment on above: Performed By: #### U A, UAMIC ####[address] [place] [place] [address] CBC W/Diff, Automatedon 05-0 PATH REV Reviewed Normal [facility] Comment on above: Result Comment: SEE REPORT IN PATIENT'S EMR AMENDED REPORT 08/02/24 1114 PATH REV previously reported as: August Performed By: #### L 504.2610, L500.4050, L100.0100 ####[facility] [address] [place], [address] Pulmonary Visit Reporton Pulmonary Visit Report [facility] [place] 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 Normal [facility] Absolute lymphocyte countOrd ered By: Rita Mathew on 07-10-2024 Lymphocytes Auto (Unsp spec) [#/Vol] 8.55 10*3/uL High 0.83-4.51 [facility] Absolute neutrophil countOrd ered By: Rita Mathew on 07-10-2024 Neutrophils (Bld) [#/Vol] 4.0 10*3/uL 2.0-7.7 [facility] Anion gap in Serum or Plasma Ordered By: Rita Mathew on 07-10-2024 Anion gap [Moles/Vol] 9 mmol/L 5-15 [facility] Automated lymphocyte count a s percentage of total leukocytesOrdered By: Rita Mathew on 07-10-2024 Lymphocytes/100 WBC Auto (Unsp spec) 54.3 % High 19-41 [facility] BUN/creatinine ratioOrdered By: Rita Mathew on 07-10-2024 Urea nitrogen/Creatinine [Mass ratio] 16.2 mg/mg 10-20 [facility] Basophil percentageOrdered B y: Rita Mathew on 07-10-2024 Basophils/100 WBC (Bld) 0.1 % 0-1 [facility] Bilirubin, totalOrdered By: Rita Quincy on 07-10-2024 Bilirubin [Mass/Vol] 0.20 mg/dL 0.00-1.30 [facility] Blood manual differential co mment interpretation (narrative result)Ordered By: Rita Mathew on 07-10-2024 Manual differential comment Bari (Bld) [Interp] SCANNED [facility] Comment on above: LYMPHOCYTOSIS NOTEDM ONOCYTOSIS NOTED Carbon dioxide, total [Moles /volume] in Central venous bloodOrdered By: Rita Mathew on 07-10-2024 CO2 [Moles/Vol] 27.3 mmol/L 21.0-32.0 [facility] Chloride assayOrdered By: Shahzad Mathew on 07-10-2024 Chloride [Moles/Vol] 106 mmol/L 98-108 [facility] Comprehensive Metabolic Prof ilon 07-10-2024 Albumin [Mass/Vol] 3.9 g/dL Normal 3.4-4.8 [facility] Comment on above: Performed By: #### L 504.2610, L500.4050, L100.0100 ####[facility] [address] [place], [address] Albumin/Globulin [Mass ratio] 1.4 {ratio} Normal 0.9-2.4 [facility] Comment on above: Performed By: #### L 504.2610, L500.4050, L100.0100 ####[facility] [address] [place], [address] ALK PHOS 95 U/L Normal 40-129 [facility] Comment on above: Performed By: #### L 504.2610, L500.4050, L100.0100 ####[facility] [address] [place], [address] ALT [Catalytic activity/Vol] 30 U/L Normal <=46 [facility] Comment on above: Performed By: #### L 504.2610, L500.4050, L100.0100 ####[facility] [address] [place], [address] AST [Catalytic activity/Vol] 31 U/L Normal <=37 [facility] Comment on above: Performed By: #### L 504.2610, L500.4050, L100.0100 ####[facility] [address] [place], [address] Bilirubin [Mass/Vol] 0.20 mg/dL Normal 0.00-1.30 [facility] Comment on above: Performed By: #### L 504.2610, L500.4050, L100.0100 ####[facility] [address] [place], [address] BUN/CRE 16.2 RATIO Normal 10-20 [facility] Comment on above: Performed By: #### L 504.2610, L500.4050, L100.0100 ####[facility] [address] [place], [address] Calcium [Mass/Vol] 8.7 mg/dL Normal 7.6-11.0 [facility] Comment on above: Performed By: #### L 504.2610, L500.4050, L100.0100 ####[facility] [address] [place], [address] Chloride [Moles/Vol] 106 mmol/L Normal 98-108 [facility] Comment on above: Performed By: #### L 504.2610, L500.4050, L100.0100 ####[facility] [address] [place], [address] CO2 [Moles/Vol] 27.3 mmol/L Normal 21.0-32.0 [facility] Comment on above: Performed By: #### L 504.2610, L500.4050, L100.0100 ####[facility] [address] [place], [address] Creatinine [Mass/Vol] 1.14 mg/dL Normal 0.70-1.20 [facility] Comment on above: Performed By: #### L 504.2610, L500.4050, L100.0100 ####[facility] [address] [place], [address] ECRCL 55.03 ml/min Normal 50-250 [facility] Comment on above: Performed By: #### L 504.2610, L500.4050, L100.0100 ####[facility] [address] [place], [address] GAP 9 Normal 5-15 [facility] Comment on above: Performed By: #### L 504.2610, L500.4050, L100.0100 ####[facility] [address] [place], [address] GFR/1.73 sq M.predicted among non-blacks MDRD (S/P/Bld) [Vol rate/Area] 70 mL/min/{1.73_m2} Normal >60 [facility] Comment on above: Result Comment: mL/m in/1.73m2 CKD-EPI Creatinine Equation (2020) Performed By: #### L 504.2610, L500.4050, L100.0100 ####[facility] [address] [place], [address] Globulin (S) [Mass/Vol] 2.8 g/dL Normal 2.2-4.2 [facility] Comment on above: Performed By: #### L 504.2610, L500.4050, L100.0100 ####[facility] [address] [place], [address] Glucose [Mass/Vol] 111 mg/dL High 70-99 [facility] Comment on above: Performed By: #### L 504.2610, L500.4050, L100.0100 ####[facility] [address] [place], [address] Potassium [Moles/Vol] 3.9 mmol/L Normal 3.3-5.1 [facility] Comment on above: Performed By: #### L 504.2610, L500.4050, L100.0100 ####[facility] [address] [place], [address] Sodium [Moles/Vol] 142 mmol/L Normal 133-145 [facility] Comment on above: Performed By: #### L 504.2610, L500.4050, L100.0100 ####[facility] [address] [place], [address] T PROT 6.7 g/dL Normal 5.9-8.4 [facility] Comment on above: Performed By: #### L 504.2610, L500.4050, L100.0100 ####[facility] [address] [place], [address] Urea nitrogen [Mass/Vol] 19 mg/dL Normal 4-19 [facility] Comment on above: Performed By: #### L 504.2610, L500.4050, L100.0100 ####[facility] [address] [place], [address] Eosinophil percentageOrdered By: Rita Mathew on 07-10-2024 Eosinophils/100 WBC (Bld) 10.2 % High 0-5 [facility] Erythrocyte distribution wid th ratioOrdered By: Rita Mathew on 07-10-2024 Erythrocyte distribution width (RBC) [Ratio] 13.1 % 11.6-14.6 [facility] Erythrocyte distribution wid th standard deviationOrdered By: Rita Mathew on 07-10-2024 Erythrocyte distribution width (RBC) [Ratio] 47.9 fl High 35.1-43.9 [facility] Glomerular filtration rate ( GFR) estimation/1.73 sq m using serum, plasma, or whole bOrdered By: Rita Mathew on 07-10-2024 GFR/1.73 sq M.predicted among non-blacks MDRD (S/P/Bld) [Vol rate/Area] 70 mL/min/{1.73_m2} >60 [facility] Comment on above: mL/min/1.73m2 CKD-EP I Creatinine Equation (2020) Hematocrit Auto (Bld) [Volum e fraction]Ordered By: Rita Mathew on 07-10-2024 Hematocrit (Bld) [Volume fraction] 40.7 % 40-54 [facility] Hemoglobin measurementOrdere d By: Rita Mathew on 07-10-2024 Hemoglobin (Bld) [Mass/Vol] 13.5 g/dL 13.0-16.5 [facility] Immature granulocytes/100 WB C Auto (Bld)Ordered By: Rita Mathew on 07-10-2024 Immature granulocytes/100 WBC (Bld) 0.100 % 0.0-0.9 [facility] Comment on above: IG% - Immature Granu locytes (promyelocytes, myelocytes and metamyelocytes) > 1% indicates that a LEFT SHIFT is Present. LDHon 07-10-2024 LDH 155 U/L Normal 87-241 [facility] Comment on above: Order Comment: 1 Performed By: #### L 504.2610, L500.4050, L100.0100 ####[facility] [address] [place], [place], [address] Laboratory - Chemistry and C hemistry - challengeOrdered By: Rita Mathew on 07-10-2024 AST [Catalytic activity/Vol] 31 U/L <38 [facility] Lactate dehydrogenase (LDH) measurementOrdered By: [facility] Mathew on 07-10-2024 LDH [Catalytic activity/Vol] 155 U/L 87-241 [facility] MCV (mean corpuscular volume ) determinationOrdered By: Rita Mathew on 07-10-2024 MCV (RBC) [Entitic vol] 99.8 fL High 80-94 [facility] Mean corpuscular hemoglobin (MCH) determinationOrdered By: [facility] Mathew on 07-10-2024 MCH (RBC) [Entitic mass] 33.1 pg High 27.0-32.0 [facility] Mean corpuscular hemoglobin concentration (MCHC) determinationOrdered By: [facility] [place] on 07-10-2024 MCHC (RBC) [Mass/Vol] 33.2 g/dL 32-36 [facility] Mean platelet volume determi nationOrdered By: [facility] [place] on 07-10-2024 Platelet mean volume (Bld) [Entitic vol] 10.0 fL 6.2-12.0 [facility] Monocyte percentageOrdered B y: [facility] on 07-10-2024 Monocytes/100 WBC (Bld) 9.8 % 0-10 [facility] Neutrophil percentageOrdered By: [facility] on 07-10-2024 Neutrophils/100 WBC (Bld) 25.5 % Low 47-70 [facility] Nucleated red blood cell per centageOrdered By: [facility] on 07-10-2024 Nucleated RBC/100 WBC (Bld) [Ratio] 0 % 0-5 [facility] Oncology Visit Reporton 04 Oncology Visit Report [facility] [address] [place] [address] OFFICE VISIT Date of Service: 07/10/24 0747 MR#: [id number] Acct: [id number] Name: RADHA BRENNAN Rep #: [id number] : 1955 From: Aide Mcdonnell NP WINDOW/DISTRIBUTION CLERK -C Age/Sex: 68/M Location: [facility] Status: Signed HPI Subjective [...] are unchanged in size and remain nontender. 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 Chronic back [...] #120 c (more content not included)... Normal [facility] Platelet countOrdered By: Shahzad Mathew on 07-10-2024 Platelets (Bld) [#/Vol] 226 10*3/uL 150-450 [facility] Potassium measurement (mass/ volume)Ordered By: Rita Mathew on 07-10-2024 Potassium (Unsp spec) [Mass/Vol] 3.9 mmol/L 3.3-5.1 [facility] RBC Auto (Bld) [#/Vol]Ordere d By: Rita Mathew on 07-10-2024 RBC (Bld) [#/Vol] 4.08 10*6/uL Low 4.6-6.2 [facility] Review by pathologistOrdered By: Rita Mathew on 07-10-2024 Pathologist review Bari (Unsp spec) [Interp] Reviewed [facility] Comment on above: Previous reported re sult: Lali bearden Edited by: VINCENZO on 08/02/24:1114SEE REPORT IN PATIENT'S EMR AMENDED REPORT 08/02/24 1114 PATH REV previously reported as: Lali bearden Serum creatinine measurement (mass/volume)Ordered By: Rita Mathew on 07-10-2024 Creatinine [Mass/Vol] 1.14 mg/dL 0.70-1.20 [facility] Serum globulin measurementOr dered By: Rita Mathew on 07-10-2024 Globulin (S) [Mass/Vol] 2.8 g/dL 2.2-4.2 [facility] Serum glucose measurement (m ass/volume)Ordered By: Rita Mathew on 07-10-2024 Glucose [Mass/Vol] 111 mg/dL High 70-99 [facility] Serum or plasma alanine vieyra otransferase (ALT) measurementOrdered By: Rita Mathew on 07-10-2024 ALT [Catalytic activity/Vol] 30 U/L <47 [facility] Serum or plasma albumin sadi urement (mass/volume)Ordered By: Rita Mathew on 07-10-2024 Albumin [Mass/Vol] 3.9 g/dL 3.4-4.8 [facility] Serum or plasma albumin/glob ulin mass ratioOrdered By: Rita Mathew on 07-10-2024 Albumin/Globulin [Mass ratio] 1.4 {ratio} 0.9-2.4 [facility] Serum or plasma alkaline amber sphatase measurementOrdered By: Rita Mathew on 07-10-2024 ALP [Catalytic activity/Vol] 95 U/L 40-129 [facility] Serum or plasma calcium sadi urement (mass/volume)Ordered By: Rita Mathew on 07-10-2024 Calcium [Mass/Vol] 8.7 mg/dL 7.6-11.0 [facility] Serum or plasma urea nitroge n measurement (mass/volume)Ordered By: Rita Mathew on 07-10-2024 Urea nitrogen [Mass/Vol] 19 mg/dL 4-19 [facility] Sodium levelOrdered By: Rhys Mathew on 07-10-2024 Sodium [Moles/Vol] 142 mmol/L 133-145 [facility] Total proteinOrdered By: Mihai Burnettekevin on 07-10-2024 Protein [Mass/Vol] 6.7 g/dL 5.9-8.4 [facility] White blood cell (WBC) count Ordered By: Rita Quincy on 07-10-2024 WBC (Bld) [#/Vol] 15.7 10*3/uL High 4.4-11.0 [facility] MRI BRAIN W/O CONTRASTon MRI BRAIN [...] Date: 05/30/2024 3:56:02 PM Ordering Provider: PARISH GRAFF Normal [facility] 6 Minute Walk Teston 05-21- 025 6 Minute Walk Test y [facility] Pulmonary Services/Neurology [address] [place] [address] MR#: [id number] Acct: [id number] Name: RADHA BRENNAN Rep #: [id number] : 1955 68 From: Alex Mejia DO Referring Dr: Santa Hawthorne WINDOW/DISTRIBUTION CLERK-C Status: REG CLI Location: PSN Date: Sex: M C PSN 6 Minute Walk Test 6 Minute Walk Test 6 Minute Walk Test: 6 Minute Walk Test PSN:6-Minute Walk Test Start: 05/15/24 13:59 Freq: Status: Active Protocol: RESP.6MINW Document 05/15/24 14:00 SFENTON (Rec: 05/15/24 14:03 SFENTON [id number]) 6 Minute Walk Test Date Performed 05/15/24 [...] Date Dictated: 05/21/24 1203 Date Transcribed: 05/21/241202 Design Analyst: Dr. Alex Mejia DO Signed Normal [facility] Oncology Visit Reporton Oncology Visit Report [facility] [address] [place] [address] OFFICE VISIT Date of Service: 04/11/24 1455 MR#: [id number] Acct: [id number] Name: RADHA BRENNAN Rep #: [id number] : 1955 From: Rita Mathew MD Age/Sex: 68/M Location: [facility] Status: Signed HPI Subjective [...] interim development of defined viable neoplastic disease. 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 Chronic back [...] tablet (Fero (more content not included)... Normal [facility] Cardiology Visit Reporton Cardiology Visit Report [facility] [address] [place] [address]. [address] [place] [address] OFFICE VISIT Date of Service: 04/10/24 MR#: [id number] Acct: [id number] Name: RADHA BRENNAN Rep #: [id number] : 1955 Provider: DEYSI Lott Age/Sex: 68/M Location: [facility] Status: Signed HPI HPI History of Present Illness Details: RADHA BRENNAN, is a 68 M with a history of coronary artery disease status post PTCA/ZOLTAN to mid LAD and proximal diagonal in October 2017, post subsequent CABG ([facility]: 09-21-2021: RIBEIRO to the LAD, ELIEL to the diagonal branch #1, SVG to the diagonal branch #2), history of mild global LV dysfunction, atrial septal aneurysm, hyperlipidemia, alcohol withdrawal seizure, epilepsy , tremors, and tobacco abuse. In April 2021. He did undergo a diagnostic heart catheterization last week which demonstrated [place]am[place] multivessel coronary artery disease in which surgical revascularization was recommended. Results of heart catheterization are noted below. Referral was not made as patient had not decided where he wanted to go yet. At his OV in June 2021 he decided he wanted to go to [facility]. He did undergo bypass surgery on [...] room air Intake Visit Reasons: 9 M Staff Electrical Engineer Required: No Is patient in pain?: No [...] tablet (Daily-Tin (more content not included)... Normal [facility] Pulmonary Visit Reporton Pulmonary Visit Report [facility] [place] [address] [place] [address] OFFICE VISIT Date of Service: 04/05/24 MR#: [id number] Acct: [id number] Name: RADHA BRENNAN Rep #: [id number] : 1955 Provider: Santa Hawthorne NP Age/Sex: 68/M Location: [facility] Status: Signed with Addenda ADDENDUM by Santa [...] Reasons: 1 Y FU Chief Complaint: Lymphoma Staff Electrical Engineer Required: No Accompanied by: Daughter Allergies bee venom protein (honey bee) Allergy (Severe, Verified 04/05/24 12:44) Anaphylaxis tuberculin, purified protein deriva Allergy (Severe, Verified 04/05/24 12:44) Swelling Medications ???Medication ???I (more content not included)... Normal [facility] PET/CT Tumor Base -Thigh Ini ton 03-20-2024 PET/CT Tumor Base -Thigh Init [facility] Imaging Services [address] [place] [address] PET/CT Tumor Base -Thigh Init MR#: [id number] Acct: [id number] Name: RADHA BRENNAN Michelle Rep #: [id number] : 1955 M 68 From: Juan R Azevedo PCP: Dr. Parish Graff, DO Status: REG RCR Study: PET/CT Tumor Base -Thigh Init Date of Exam: Exam# [id number] Ordering Dr: Rita Mathew MD [id number] EXAMINATION: FDG-PET/CT ? INDICATIONS: 68-year-old male with [...] and sta (more content not included)... Normal [facility] Hepatitis B/C Profile VIIIon 03-14-2024 COMMENT Comment Normal . [facility] Comment on above: Result Comment: Not infected with HCV unless early or acute infection is suspected (which may be delayed in an immunocompromised individual), or other evidence exists to indicate HCV infection. Performed at: [facility] [address] [id number] Financing Analyst: Joni Casper PhD, Phone: [phone] Performed By: #### L 3000.0800, L100.0100, L500.4050, L504.2610 ####[facility] [address] [place], [address] HEP B CORE,TOT Negative Normal Negative [facility] Comment on above: Performed By: #### L 3000.0800, L100.0100, L500.4050, L504.2610 ####[facility] [address] [place], [address] Hep B Ambar AB Non-Reactive Normal . [facility] Comment on above: Result Comment: Non Reactive: Not immune to HBV infection. Equivocal: Unable to determine if anti-HBs is present at levels consistent with immunity. Reactive: Anti-HBs concentration detected at greater than 10 mIU/mL. Individual is considered to be immune to infection with HBV. Performed By: #### L 3000.0800, L100.0100, L500.4050, L504.2610 ####[facility] [address] [place], [address] HEP B SURF AG Negative Normal Negative [facility] Comment on above: Performed By: #### L 3000.0800, L100.0100, L500.4050, L504.2610 ####[facility] [address] [place], [address] HEP C Antibody Non-Reactive Normal Non Reactive [facility] Comment on above: Performed By: #### L 3000.0800, L100.0100, L500.4050, L504.2610 ####[facility] [address] [place], [address] CBC W/Diff, Automatedon 03-04 SMEAR COMMENT COMMENT Normal [facility] Comment on above: Result Comment: LYMP HOCYTOSIS. EOSINOPHILIA. Performed By: #### L 3000.0800, L100.0100, L500.4050, L504.2610 ####[facility] [address] [place], [address] Comprehensive Metabolic Prof ilon 03-13-2024 Albumin [Mass/Vol] 3.2 g/dL Normal 3.2-5.0 [facility] Comment on above: Order Comment: 1 Performed By: #### L 3000.0800, L100.0100, L500.4050, L504.2610 ####[facility] [address] [place], [address] Albumin/Globulin [Mass ratio] 0.9 {ratio} Normal 0.9-2.4 [facility] Comment on above: Order Comment: 1 Performed By: #### L 3000.0800, L100.0100, L500.4050, L504.2610 ####[facility] [address] [place], [address] ALK P 100 U/L Normal 45-117 [facility] Comment on above: Order Comment: 1 Performed By: #### L 3000.0800, L100.0100, L500.4050, L504.2610 ####[facility] [address] [place], [address] ALT [Catalytic activity/Vol] 30 U/L Normal 16-61 [facility] Comment on above: Order Comment: 1 Performed By: #### L 3000.0800, L100.0100, L500.4050, L504.2610 ####[facility] [address] [place], [address] AST [Catalytic activity/Vol] 19 U/L Normal 15-37 [facility] Comment on above: Order Comment: 1 Performed By: #### L 3000.0800, L100.0100, L500.4050, L504.2610 ####[facility] [address] [place], [address] Bilirubin [Mass/Vol] 0.50 mg/dL Normal 0.20-1.00 [facility] Comment on above: Order Comment: 1 Result Comment: For patients on eltrombopag therapy, use of Dimension [place] TBIL is not recommended. Performed By: #### L 3000.0800, L100.0100, L500.4050, L504.2610 ####[facility] [address] [place], [address] BUN/CRE 10.1 RATIO Normal 10-20 [facility] Comment on above: Order Comment: 1 Performed By: #### L 3000.0800, L100.0100, L500.4050, L504.2610 ####[facility] [address] [place], [address] CA,Total 8.8 mg/dL Normal 8.5-10.1 [facility] Comment on above: Order Comment: 1 Performed By: #### L 3000.0800, L100.0100, L500.4050, L504.2610 ####[facility] [address] [place], [address] Chloride [Moles/Vol] 105 mmol/L Normal 98-107 [facility] Comment on above: Order Comment: 1 Performed By: #### L 3000.0800, L100.0100, L500.4050, L504.2610 ####[facility] [address] [place], [address] CO2 [Moles/Vol] 28.0 mmol/L Normal 21.0-32.0 [facility] Comment on above: Order Comment: 1 Performed By: #### L 3000.0800, L100.0100, L500.4050, L504.2610 ####[facility] [address] [place], [address] Creatinine [Mass/Vol] 1.09 mg/dL Normal 0.70-1.30 [facility] Comment on above: Order Comment: 1 Result Comment: The validity of the calculated GFR GFRAA in patients over 70 years has not been determined. Clinical correlation is essential. Performed By: #### L 3000.0800, L100.0100, L500.4050, L504.2610 ####[facility] [address] [place], [address] EST GFR - AA 86 mL/min Normal >60 [facility] Comment on above: Order Comment: 1 Result Comment: Afri can Cook Islander GFR Calc Performed By: #### L 3000.0800, L100.0100, L500.4050, L504.2610 ####[facility] [address] [place], [address] GAP 4 Low 5-15 [facility] Comment on above: Order Comment: 1 Performed By: #### L 3000.0800, L100.0100, L500.4050, L504.2610 ####[facility] [address] [place], [address] GFR/1.73 sq M.predicted among non-blacks MDRD (S/P/Bld) [Vol rate/Area] 71 mL/min/{1.73_m2} Normal >60 [facility] Comment on above: Order Comment: 1 Result Comment: Non- GFR Calc Performed By: #### L 3000.0800, L100.0100, L500.4050, L504.2610 ####[facility] [address] [place], [address] Globulin (S) [Mass/Vol] 3.6 g/dL Normal 2.2-4.2 [facility] Comment on above: Order Comment: 1 Performed By: #### L 3000.0800, L100.0100, L500.4050, L504.2610 ####[facility] [address] [place], [address] Glucose [Mass/Vol] 156 mg/dL High 74-106 [facility] Comment on above: Order Comment: 1 Result Comment: Fast ing Glucose result greater than or equal to 126 mg/dL suggests DIABETES MELLITUS per A.D.A. criteria. Performed By: #### L 3000.0800, L100.0100, L500.4050, L504.2610 ####[facility] [address] [place], [address] Potassium [Moles/Vol] 4.2 mmol/L Normal 3.5-5.1 [facility] Comment on above: Order Comment: 1 Performed By: #### L 3000.0800, L100.0100, L500.4050, L504.2610 ####[facility] [address] [place], [address] Sodium [Moles/Vol] 137 mmol/L Normal 136-145 [facility] Comment on above: Order Comment: 1 Performed By: #### L 3000.0800, L100.0100, L500.4050, L504.2610 ####[facility] [address] [place], [address] T PROT 6.8 g/dL Normal 6.4-8.2 [facility] Comment on above: Order Comment: 1 Performed By: #### L 3000.0800, L100.0100, L500.4050, L504.2610 ####[facility] [address] [place], [address] Urea nitrogen [Mass/Vol] 11 mg/dL Normal 7-18 [facility] Comment on above: Order Comment: 1 Performed By: #### L 3000.0800, L100.0100, L500.4050, L504.2610 ####[facility] [address] [place], [address] LDHon 03-13-2024 LDH 158 U/L Normal 87-241 [facility] Comment on above: Order Comment: 1 Performed By: #### L 3000.0800, L100.0100, L500.4050, L504.2610 ####[facility] [address] [place], [address] No Panel InformationOrdered By: Rita Mathew on 03-13-2024 Hepatitis C Antibody Comment Comment . [facility] Comment on above: Not infected with HC V unless early or acute infection issuspected (which may be delayed in an immunocompromisedindividual), or other evidence exists to indicate HCVinfection.Performed at: [facility] [address] [id number] Director: Joni Casper PhD, Phone: [phone] Oncology Visit Reporton 03-04 Oncology Visit Report [facility] [address] [place] [address] OFFICE VISIT Date of Service: 03/13/24 1006 MR#: [id number] Acct: [id number] Name: RADHA BRENNAN Rep #: [id number] : 1955 From: Rita Mathew MD Age/Sex: 68/M Location: [facility] Status: Signed HPI Subjective Date of [...] above diagnosis report has been requested from [facility] for review. [facility] Medical History (Updated 03/13/24 @ 12:19 by [...] collapse Seizure Hyperlipidemia Atherosclerotic heart disease of [place] coronary artery without angina pectoris Chronic back [...] Delivery M (more content not included)... Normal [facility] Serum hepatitis B virus core antibody detectionOrdered By: Rita Mathew on 03-13-2024 HBV core Ab Ql (S) Negative Negative [facility] Serum or plasma hepatitis B virus surface antigen detection by immunoassayOrdered By: Rita Mathew on 03-13-2024 HBV surface Ag IA Ql Negative Negative [facility] Final Surgical Pathology Rep antonio 03-05-2024 Final Surgical Pathology Report . Pathology Reports Accession: Collected Date/Time: Received Date/Time: Pathologist: [id number] 02/27/2024 11:10 EST 02/28/2024 09:37 EST ANASTACIO [...] All parts labelled with patient name and [id number] Received fresh for touch prep labelled right [...] -larger lymph node. RS-6 Johnna Huber, Pathologists' Medical Typist (ASCP) Performed by JOHNNA HUBER MICROSCOPIC DESCRIPTION: The microscopic examination is performed, except in the case of Gross Only. Electronically Signed by Pathology Report verified by [facility] ANASTACIO PATEL Sign out Date: 03/05/2024 14:41 Performing Lab: [facility], [address] [place] [address] Pathology Dept Disclaimer If ancillary studies were utilized, the following Laboratory Developed Test (LDT) disclaimer will apply: Under CLIA requirements, [facility]ology Laboratory is qualified to perform high complexity testing. For all ancillary stains, positive and negative controls stain appropriately. Performance characteristics of immunohistochemical and chromogenic in-situ hybridization tests have been determined by [facility]. These tests are used for clinical purposes, They should not be regarded as investigational or for research. Normal [facility] .GFRon 02-23-2024 GFR 92 ml/min/1.73sqm Normal [facility] Comment on above: Result Comment: GFR Population [...] FR, CMP, DIFF, CBC, MORPH ####[address] [place], [place] [address] GFR Non- 76 ml/min/1.73sqm Normal [facility] Comment on above: Result Comment: GFR Population [...] FR, CMP, DIFF, CBC, MORPH ####[address] [place], [place] [address] .Manual Diffon 02-23-2024 Atypical Lymphs 17.7 % High 0.0-5.0 [facility] Comment on above: Performed By: #### G FR, CMP, DIFF, CBC, MORPH ####[address] [place], [place] [address] Basophil %, Manual 0.0 % Normal 0.0-2.5 [facility] Comment on above: Performed By: #### G FR, CMP, DIFF, CBC, MORPH ####[address] [place], [place] [address] Basophil, Abs Manual 0.0 10 3/mcL Normal 0.0-0.2 [facility] Comment on above: Performed By: #### G FR, CMP, DIFF, CBC, MORPH ####[address] [place], [place] [address] Eosinophil %, Manual 12.7 % High 0.0-7.[address] [facility] Comment on above: Performed By: #### G FR, CMP, DIFF, CBC, MORPH ####[address] [place], [place] [address] Eosinophil, Abs Manual 1.5 10 3/mcL High 0.0-0.7 [facility] Comment on above: Performed By: #### G FR, CMP, DIFF, CBC, MORPH ####[address] [place], [place] [address] Lymphocyte %, Manual 26.5 % Normal 20.0-40.[address] [facility] Comment on above: Performed By: #### G FR, CMP, DIFF, CBC, MORPH ####[address] [place], [place] [address] Lymphocyte, Abs Manual 3.2 10 3/mcL Normal 0.9-4.3 [facility] Comment on above: Performed By: #### G FR, CMP, DIFF, CBC, MORPH ####[address] [place], [place] [address] Monocyte %, Manual 3.9 % Normal 2.0-13.0 [facility] Comment on above: Performed By: #### G FR, CMP, DIFF, CBC, MORPH ####[address] [place], [place] [address] Monocyte, Abs Manual 0.5 10 3/mcL Normal 0.1-1.4 [facility] Comment on above: Performed By: #### G FR, CMP, DIFF, CBC, MORPH ####[address] [place] [address] Neutrophil %, Manual 39.2 % Low 50.0-75.[address] [facility] Comment on above: Performed By: #### G FR, CMP, DIFF, CBC, MORPH ####[address] [place] [address] Neutrophil, Abs Manual 4.7 10 3/mcL Normal 2.3-8.1 [facility] Comment on above: Performed By: #### G FR, CMP, DIFF, CBC, MORPH ####[place] [address] [address] Nucleated RBC 0.0 /100 WBC Normal [facility] Comment on above: Performed By: #### G FR, CMP, DIFF, CBC, MORPH ####[address] [place] [address] .Morphon 02-23-2024 Macrocytosis 1+ Normal [facility] Comment on above: Performed By: #### G FR, CMP, DIFF, CBC, MORPH ####[place] [address] [address] Platelet Estimate Normal Normal [facility] Comment on above: Performed By: #### G FR, CMP, DIFF, CBC, MORPH ####[place] [address] [place] [address] Stomatocytes 1+ Normal [facility] Comment on above: Performed By: #### G FR, CMP, DIFF, CBC, MORPH ####[address] [place] [address] CBCon 02-23-2024 Erythrocyte distribution width (RBC) [Ratio] 13.4 % Normal 11.5-15.5 [facility] Comment on above: Order Comment: Pre-A dmission Testing Performed By: #### G FR, CMP, DIFF, CBC, MORPH ####[address] [place] [address] Hematocrit (Bld) [Volume fraction] 40.1 % Normal 40.0-52.0 [facility] Comment on above: Order Comment: Pre-A dmission Testing Performed By: #### G FR, CMP, DIFF, CBC, MORPH ####[address] [place], [place] [address] Hgb 13.3 G/dL Normal 13.0-17.5 [facility] Comment on above: Order Comment: Pre-A dmission Testing Performed By: #### G FR, CMP, DIFF, CBC, MORPH ####[address] [place], [place] [address] MCH (RBC) [Entitic mass] 33.9 pg High 27.0-33.0 [facility] Comment on above: Order Comment: Pre-A dmission Testing Performed By: #### G FR, CMP, DIFF, CBC, MORPH ####[address] [address] MCHC 33.1 G/dL Normal 32.0-36.0 [facility] Comment on above: Order Comment: Pre-A dmission Testing Performed By: #### G FR, CMP, DIFF, CBC, MORPH ####[address] [place], [place] [address] MCV (RBC) [Entitic vol] 102.4 fL High 81.0-100.0 [facility] Comment on above: Order Comment: Pre-A dmission Testing Performed By: #### G FR, CMP, DIFF, CBC, MORPH ####[address] [address] Platelet 256 10 3/mcL Normal 150-450 [facility] Comment on above: Order Comment: Pre-A dmission Testing Performed By: #### G FR, CMP, DIFF, CBC, MORPH ####[address] [place], [place] [address] Platelet mean volume (Bld) [Entitic vol] 8.3 fL Normal 6.4-10.5 [facility] Comment on above: Order Comment: Pre-A dmission Testing Performed By: #### G FR, CMP, DIFF, CBC, MORPH ####[address] [place], [place] [address] RBC 3.92 10 6/mcL Low 4.50-6.00 [facility] Comment on above: Order Comment: Pre-A dmission Testing Performed By: #### G FR, CMP, DIFF, CBC, MORPH ####[address] [place], [place] [address] WBC 12.0 10 3/mcL High 4.5-10.8 [facility] Comment on above: Order Comment: Pre-A dmission Testing Performed By: #### G FR, CMP, DIFF, CBC, MORPH ####[address] [place], [place] [address] CMPon 02-23-2024 Albumin Level 3.5 G/dL Normal 3.4-4.8 [facility] Comment on above: Performed By: #### G FR, CMP, DIFF, CBC, MORPH ####[address] [place], [place] [address] Albumin/Globulin [Mass ratio] 1.1 {ratio} Normal 1.1-2.5 [facility] Comment on above: Performed By: #### G FR, CMP, DIFF, CBC, MORPH ####[address] [place], [place] [address] ALP [Catalytic activity/Vol] 115 U/L Normal 40-135 [facility] Comment on above: Performed By: #### G FR, CMP, DIFF, CBC, MORPH ####[address] [place], [place] [address] ALT [Catalytic activity/Vol] 29 U/L Normal 16-63 [facility] Comment on above: Performed By: #### G FR, CMP, DIFF, CBC, MORPH ####[address] [place], [place] [address] AST [Catalytic activity/Vol] 20 U/L Normal 10-40 [facility] Comment on above: Performed By: #### G FR, CMP, DIFF, CBC, MORPH ####[address] [place], [place] [address] Bili Total 0.4 mg/dL Normal 0.2-1.0 [facility] Comment on above: Result Comment: Use of this assay is not recommended for patients undergoing treatment with eltrombopag due to the potential for falsely elevated results. Performed By: #### G FR, CMP, DIFF, CBC, MORPH ####[address] [place], [place] [address] BUN/Creatinine Ratio 14 ratio Normal 7-[address] [facility] Comment on above: Performed By: #### G FR, CMP, DIFF, CBC, MORPH ####[address] [place], [place] [address] Calcium [Mass/Vol] 9.1 mg/dL Normal 8.4-10.2 [facility] Comment on above: Performed By: #### G FR, CMP, DIFF, CBC, MORPH ####[address] [address] Chloride [Moles/Vol] 105 mmol/L Normal 98-[address] [facility] Comment on above: Performed By: #### G FR, CMP, DIFF, CBC, MORPH ####Bridget [address] [address] CO2 [Moles/Vol] 27 mmol/L Normal 23-31 [facility] Comment on above: Performed By: #### G FR, CMP, DIFF, CBC, MORPH ####Bridget [id number] [address] Creatinine [Mass/Vol] 0.98 mg/dL Normal 0.70-1.30 [facility] Comment on above: Result Comment: Test ing performed on Siemens Dimension EXL analyzer using a modified kinetic Wade technique. Performed By: #### G FR, CMP, DIFF, CBC, MORPH ####Bridget [address] [place], [place] [address] Electrolyte Balance 9.0 mEq/L Normal 4.0-15.0 [facility] Comment on above: Performed By: #### G FR, CMP, DIFF, CBC, MORPH ####Bridget [address] [place], [place] [address] Globulin 3.1 G/dL Normal [facility] Comment on above: Performed By: #### G FR, CMP, DIFF, CBC, MORPH ####Bridget [address] [place], [place] [address] Glucose [Mass/Vol] 83 mg/dL Normal 80-115 [facility] Comment on above: Performed By: #### G FR, CMP, DIFF, CBC, MORPH ####Bridget [address] [place], [place] [address] Potassium [Moles/Vol] 4.1 mmol/L Normal 3.5-5.1 [facility] Comment on above: Performed By: #### G FR, CMP, DIFF, CBC, MORPH ####Bridget [address] [place], [place] [address] Sodium [Moles/Vol] 141 mmol/L Normal 136-145 [facility] Comment on above: Performed By: #### G FR, CMP, DIFF, CBC, MORPH ####Bridget [address] [place], [place] [address] Total Protein 6.6 G/dL Normal 6.4-8.2 [facility] Comment on above: Performed By: #### G FR, CMP, DIFF, CBC, MORPH ####B[address]get [address] [place], [place] [address] Urea nitrogen [Mass/Vol] 14 mg/dL Normal 7-18 [facility] Comment on above: Performed By: #### G FR, CMP, DIFF, CBC, MORPH ####Bridget [address] [place], [place] [address] LABORATORYOrdered By: SYSTEM SYSTEM on 02-23-2024 Magnesium [...] 02-23-2024 Magnesium [Mass/Vol] 1.9 mg/dL Normal 1.8-2.[address] [facility] Comment on above: Performed By: #### M G ####Bridget [address] [place], [place] [address] CT THORAX SCREENING W/O CONT Amberly 02-06-2024 CT THORAX SCREENING W/O CONTRAST ORIGINAL EXAMINATION: LOW DOSE SCREENING CT OF THE CHEST WITHOUT [id number]/1/2024 7:36 am TECHNIQUE: Low dose lung cancer [...] 02/06/2024 9:30:36 AM Ordering Provider: PARISH GRAFF [facility] US SOFT TISSUE MASS OF ARM O R LEG BILATon 02-04-2024 US SOFT TISSUE MASS OF ARM OR LEG BILAT ORIGINAL EXAMINATION: SOFT TISSUE [id number]/1/2024 7:36 am COMPARISON: None TECHNIQUE: Bilateral groin [...] 02/04/2024 9:54:34 AM Ordering Provider: PARISH GRAFF [facility] CT ABDOMEN/PELVIS W/CONTRAST on 02-03-2024 CT ABDOMEN/PELVIS W/CONTRAST ORIGINAL EXAMINATION: CT OF THE ABDOMEN AND PELVIS WITH TXJLBBHQ35/1/2024 9:13 am TECHNIQUE: CT of the abdomen [...] Date: 02/03/2024 2:46:30 PM Ordering Provider: PARISH GRAFF [facility] Absolute lymphocyte countOrd ered By: Thai Nice on 05-23-2023 Lymphocytes Auto (Unsp spec) [#/Vol] 6.21 10*3/uL 0.83-4.51 [facility] Automated lymphocyte count a s percentage of total leukocytesOrdered By: Thai Nice on 05-23-2023 Lymphocytes/100 WBC Auto (Unsp spec) 54.3 % 19-41 [facility] Basophil percentageOrdered B y: Thai Nice on 05-23-2023 Basophils/100 WBC (Bld) 0.4 % 0-1 [facility] Chloride [Moles/Vol] 110 mmol/L 98-107 [facility] Eosinophils/100 WBC (Bld) 8.4 % 0-5 [facility] Glucose [Mass/Vol] 86 mg/dL 74-106 [facility] Hemoglobin (Bld) [Mass/Vol] 12.9 g/dL 13.0-16.5 [facility] Monocytes/100 WBC (Bld) 10.4 % 0-10 [facility] Neutrophils (Bld) [#/Vol] 3.0 10*3/uL 2.0-7.7 [facility] Neutrophils/100 WBC (Bld) 26.4 % 47-70 [facility] Potassium [Moles/Vol] 3.9 mmol/L 3.5-5.1 [facility] Sodium [Moles/Vol] 139 mmol/L 136-145 [facility] WBC (Bld) [#/Vol] 11.4 10*3/uL 4.4-11.0 [facility] Blood manual differential co mment interpretation (narrative result)Ordered By: Thai Nice on 05-23-2023 Manual differential comment Bari (Bld) [Interp] See comment [facility] Comment on above: LYMPHOCYTOSIS NOTED Determination of erythrocyte mean corpuscular volume (MCV)Ordered By: Thai Nice on 05-23-2023 MCV (RBC) [Entitic vol] 99.5 fL 80-94 [facility] Erythrocyte distribution wid th ratioOrdered By: Thai Nice on 05-23-2023 Erythrocyte distribution width (RBC) [Ratio] 12.5 % 11.6-14.6 [facility] Erythrocyte distribution wid th standard deviationOrdered By: Thai Nice on 05-23-2023 Erythrocyte distribution width (RBC) [Entitic vol] 45.4 fL 35.1-43.9 [facility] Hematocrit Auto (Bld) [Volum e fraction]Ordered By: Thai Nice on 05-23-2023 Hematocrit (Bld) [Volume fraction] 38.5 % 40-54 [facility] Immature granulocytes/100 WB C Auto (Bld)Ordered By: Thai Nice on 05-23-2023 Immature granulocytes/100 WBC (Bld) 0.100 % 0.0-0.9 [facility] Comment on above: IG% - Immature Granu locytes (promyelocytes, myelocytes and metamyelocytes) > 1% indicates that a LEFT SHIFT is Present. Laboratory - Chemistry and C hemistry - challengeOrdered By: Thai Nice on 05-23-2023 CO2 [Moles/Vol] 28.0 mmol/L 21.0-32.0 [facility] Natriuretic peptide B (Bld) [Mass/Vol] 21.9 pg/mL 0-100 [facility] Urea nitrogen/Creatinine [Mass ratio] 14.1 mg/mg 10-20 [facility] Laboratory - Hematology and Cell countsOrdered By: Thai Nice on 05-23-2023 MCH (RBC) [Entitic mass] 33.3 pg 27.0-32.0 [facility] MCHC (RBC) [Mass/Vol] 33.5 g/dL 32-36 [facility] Nucleated RBC/100 WBC (Bld) [Ratio] 0 % 0-5 [facility] Platelet mean volume (Bld) [Entitic vol] 10.7 fL 6.2-12.0 [facility] Platelets (Bld) [#/Vol] 246 10*3/uL 150-450 [facility] No Panel InformationOrdered By: Thai Nice on 05-23-2023 Troponin I High Sensitivity 7 pg/mL 3.0-78.0 [facility] Comment on above: Please Note: New Renay t Units and Gender Specific Reference Ranges. For more information see Policy Stat Procedure [place] High Sensitivity Troponin (TNIH) and attachments. Estimated Creatinine Clearance Calc 67.88 ml/min [facility] Estimated GFR (MDRD) Amer 96 mL/min >60 [facility] Comment on above: GFR Calc Estimated GFR (MDRD) Non-Af Amer 80 mL/min >60 [facility] Comment on above: Non- GFR Calc RBC Auto (Bld) [#/Vol]Ordere d By: Thai Nice on 05-23-2023 RBC (Bld) [#/Vol] 3.87 10*6/uL 4.6-6.2 [facility] Serum or plasma calcium sadi urement (mass/volume)Ordered By: Thai Nice on 05-23-2023 Calcium [Mass/Vol] 8.8 mg/dL 8.5-10.1 [facility] Serum or plasma creatinine m easurement (mass/volume)Ordered By: Thai Nice on 05-23-2023 Creatinine [Mass/Vol] 0.99 mg/dL 0.70-1.30 [facility] Comment on above: The validity of the calculated GFR & GFRAA in patients over 70 years has not been determined. Clinical correlation is essential. Serum or plasma urea nitroge n measurement (mass/volume)Ordered By: Thai Nice on 05-23-2023 Urea nitrogen [Mass/Vol] 14 mg/dL 10-19 [facility] Thin prep Papanicolaou smear with manual screeningOrdered By: Thai Nice on 05-23-2023 Thin prep Papanicolaou smear with manual screening 1 08-16 [facility] US SOFT TISSUE Jolynn 2023 US SOFT [...] interval increase in size. Interpreted by: Justo aWtkins MD Preliminary Report By: Justo Watkins MD Electronically signed By Justo Watkins MD Dictated Date: 04/21/2023 3:18:36 PM Prelim Date: 04/21/2023 3:19:36 PM Sign Date: 04/21/2023 3:19:36 PM Ordering Provider: PARISH Fine [facility] ([place]) [place] MYOCARDIAL SPECT STRESS/R ESTon 03-16-2023 NM [...] Sign Date: 03/16/2023 4:53:33 PM Ordering Provider:Parish Fine [facility]) B1WBon 03-10-2023 Vitamin B1 Whl Bld 158.2 nmol/L Normal 66.5-200.0 [facility]) Comment on above: Result Comment: This test was developed and its performance characteristics determined by [facility]. It has not been cleared or approved by the Food and Drug Administration. Performed At: [address] [id number] [place] MD Ph:[phone] Performed By: #### A GUTIERREZ DRUGS #### [address] [address] B12on 03-05-2023 Cobalamin (Vitamin B12) [Mass/Vol] 316 pg/mL Normal 211-911 [facility]) Comment on above: Performed By: #### A GUTIERREZ DRUGS #### [address] [address] .Auto Diffon 03-04-2023 Basophil, Absolute 0.0 10 3/mcL Normal 0.0-0.2 [facility] ([place]) Comment on above: Performed By: #### A LC, DRUGS #### [address] [address] Basophils/100 WBC (Bld) 0.5 % Normal 0.0-2.5 [facility] ([place]) Comment on above: Performed By: #### A LC, DRUGS #### [address] [address] Eosinophil, Absolute 1.3 10 3/mcL High 0.0-0.4 [facility] ([place]) Comment on above: Performed By: #### A LC, DRUGS #### [address] [address] Eosinophils/100 WBC (Bld) 12.1 % High 0.0-7.0 [facility] ([place]) Comment on above: Performed By: #### A LC, DRUGS #### [address] [address] Lymphocyte, Absolute 4.7 10 3/mcL High 0.8-3.9 [facility] ([place]) Comment on above: Performed By: #### A LC, DRUGS #### [address] [address] Lymphocytes/100 WBC (Bld) 43.9 % Normal 10.0-50.0 [facility] ([place]) Comment on above: Performed By: #### A LC, DRUGS #### [address] [address] Monocyte, Absolute 0.7 10 3/mcL Normal 0.2-1.0 [facility] ([place]) Comment on above: Performed By: #### A LC, DRUGS #### [address] [address] Monocytes/100 WBC (Bld) 6.5 % Normal 1.7-13.0 [facility] ([place]) Comment on above: Performed By: #### A LC, DRUGS #### [address] [address] Neutrophils/100 WBC (Bld) 37.0 % Normal 37.0-80.0 [facility] ([place]) Comment on above: Performed By: #### A LC, DRUGS #### [address] [address] .GFRon 03-04-2023 GFR 82 ml/min/1.73sqm Normal [facility] ([place]) Comment on above: Result Comment: GFR Population [...] Performed By: #### A LC, DRUGS #### [place] [address] GFR Non- 68 ml/min/1.73sqm Normal [facility] ([place]) Comment on above: Result Comment: GFR Population [...] Performed By: #### A LC, DRUGS #### [address] [address] .NEUABSon 03-04-2023 Neutrophil, Absolute 4.0 10 3/mcL Normal 2.9-6.2 [facility] ([place]) Comment on above: Performed By: #### A LC, DRUGS #### [place] [id number] A1Con 03-04-2023 HbA1c (Bld) [Mass fraction] 6.0 % Normal 4.3-6.4 [facility] ([place]) Comment on above: Performed By: #### A LC, DRUGS #### [place] [id number] CBCon 03-04-2023 Erythrocyte distribution width (RBC) [Ratio] 12.8 % Normal 11.5-14.5 [facility] ([place]) Comment on above: Performed By: #### A LC, DRUGS #### [place] [address] Hematocrit (Bld) [Volume fraction] 39.1 % Low 42.0-52.0 [facility] ([place]) Comment on above: Performed By: #### A LC, DRUGS #### [place] [address] Hgb 13.1 G/dL Low 14.0-18.0 [facility] ([place]) Comment on above: Performed By: #### A LC, DRUGS #### [place] [address] MCH (RBC) [Entitic mass] 33.5 pg High 27.0-31.2 [facility] ([place]) Comment on above: Performed By: #### A LC, DRUGS #### [place] [address] MCHC 33.5 G/dL Normal 31.8-35.4 [facility] ([place]) Comment on above: Performed By: #### A LC, DRUGS #### [place] [address] MCV (RBC) [Entitic vol] 100.2 fL High 80.0-94.0 [facility] ([place]) Comment on above: Performed By: #### A LC, DRUGS #### [place] [address] Platelet 249 10 3/mcL Normal 130-400 [facility] ([place]) Comment on above: Performed By: #### A LC, DRUGS #### [address] [address] Platelet mean volume (Bld) [Entitic vol] 8.4 fL Normal 7.4-10.4 [facility] ([place]) Comment on above: Performed By: #### A LC, DRUGS #### [address] [address] RBC 3.90 10 6/mcL Low 4.04-6.13 [facility] ([place]) Comment on above: Performed By: #### A LC, DRUGS #### [address] [address] WBC 10.7 10 3/mcL Normal 4.6-10.8 [facility] ([place]) Comment on above: Performed By: #### A LC, DRUGS #### [address] [address] CMPon 03-04-2023 Albumin Level 3.5 G/dL Normal 3.4-4.8 [facility] ([place]) Comment on above: Performed By: #### A LC, DRUGS #### [address] [address] Albumin/Globulin [Mass ratio] 1.2 {ratio} Normal 1.1-2.5 [facility] ([place]) Comment on above: Performed By: #### A LC, DRUGS #### [address] [address] ALP [Catalytic activity/Vol] 87 U/L Normal 40-135 [facility] ([place]) Comment on above: Performed By: #### A LC, DRUGS #### [address] [address] ALT [Catalytic activity/Vol] 33 U/L Normal 16-63 [facility] ([place]) Comment on above: Performed By: #### A LC, DRUGS #### [address] [address] AST [Catalytic activity/Vol] 18 U/L Normal 10-40 [facility] ([place]) Comment on above: Performed By: #### A LC, DRUGS #### [address] [address] Bili Total 0.5 mg/dL Normal 0.2-1.0 [facility] ([place]) Comment on above: Result Comment: Use of this assay is not recommended for patients undergoing treatment with eltrombopag due to the potential for falsely elevated results. Performed By: #### A LC, DRUGS #### [address] [address] BUN/Creatinine Ratio 14 ratio Normal 7-27 [facility] ([place]) Comment on above: Performed By: #### A LC, DRUGS #### [place] [id number] Calcium [Mass/Vol] 8.9 mg/dL Normal 8.4-10.2 [facility] ([place]) Comment on above: Performed By: #### A LC, DRUGS #### [place] [id number] Chloride [Moles/Vol] 103 mmol/L Normal 98-107 [facility] ([place]) Comment on above: Performed By: #### A LC, DRUGS #### [place] [id number] CO2 [Moles/Vol] 30 mmol/L Normal 23-31 [facility] ([place]) Comment on above: Performed By: #### A LC, DRUGS #### [place] [id number] Creatinine [Mass/Vol] 1.08 mg/dL Normal 0.70-1.30 [facility] ([place]) Comment on above: Performed By: #### A LC, DRUGS #### [address] [address] Electrolyte Balance 6.0 mEq/L Normal 4.0-15.0 [facility] ([place]) Comment on above: Performed By: #### A LC, DRUGS #### [place] [id number] Globulin 3.0 G/dL Normal [facility] ([place]) Comment on above: Performed By: #### A LC, DRUGS #### [address] [address] Glucose [Mass/Vol] 84 mg/dL Normal 80-115 [facility] ([place]) Comment on above: Performed By: #### A LC, DRUGS #### [address] [address] Potassium [Moles/Vol] 4.9 mmol/L Normal 3.5-5.1 [facility] ([place]) Comment on above: Performed By: #### A LC, DRUGS #### [address] [address] Sodium [Moles/Vol] 139 mmol/L Normal 136-145 [facility] ([place]) Comment on above: Performed By: #### A LC, DRUGS #### [address] [address] Total Protein 6.5 G/dL Normal 6.4-8.2 [facility] ([place]) Comment on above: Performed By: #### A LC, DRUGS #### [address] [address] Urea nitrogen [Mass/Vol] 15 mg/dL Normal 7-18 [facility] ([place]) Comment on above: Performed By: #### A LC, DRUGS #### [address] [address] FT4on 03-04-2023 Free T4 [Mass/Vol] 0.84 ng/dL Normal 0.76-1.46 [facility] ([place]) Comment on above: Performed By: #### A LC, DRUGS #### [address] [address] MGon 03-04-2023 Magnesium [Mass/Vol] 2.0 mg/dL Normal 1.8-2.4 [facility] ([place]) Comment on above: Performed By: #### A LC, DRUGS #### [address] [address] TSHon 03-04-2023 TSH Qn 2.11 m[IU]/L Normal 0.36-3.74 [facility] ([place]) Comment on above: Performed By: #### A LC, DRUGS #### [address] [address] Absolute lymphocyte countOrd ered By: Meaghan Sanchez on 02-27-2023 Lymphocytes Auto (Unsp spec) [#/Vol] 5.26 10*3/uL 0.83-4.51 [facility] Basophil percentageOrdered B y: Meaghan Sanchez on 02-27-2023 Basophil percentage 0 SEEN /hpf 0-5 [facility] Basophil percentage 88 mg/dL 74-106 [facility] Basophil percentage 6.4 g/dL 6.4-8.2 [facility] Basophil percentage 0.60 mg/dL 0.20-1.00 [facility] Basophil percentage 140 mmol/L 136-145 [facility] Basophil percentage 4.4 mmol/L 3.5-5.1 [facility] Basophil percentage 102 mmol/L 98-107 [facility] Basophils (Bld) [#/Vol] 11.8 10*3/uL 4.4-11.0 [facility] Basophils (Bld) [#/Vol] 4.7 10*3/uL 2.0-7.7 [facility] Basophils/100 WBC (Bld) 39.6 % 47-70 [facility] Basophils/100 WBC (Bld) 9.8 % 0-5 [facility] Basophils/100 WBC (Bld) 0.6 % 0-1 [facility] Bilirubin [Mass/Vol] 0.60 mg/dL 0.20-1.00 [facility] Comment on above: For patients on eltr ombopag therapy, use of Dimension [place] TBIL is not recommended. Chloride [Moles/Vol] 102 mmol/L 98-107 [facility] Eosinophils/100 WBC (Bld) 9.8 % 0-5 [facility] Glucose [Mass/Vol] 88 mg/dL 74-106 [facility] Neutrophils (Bld) [#/Vol] 4.7 10*3/uL 2.0-7.7 [facility] Neutrophils/100 WBC (Bld) 39.6 % 47-70 [facility] Potassium [Moles/Vol] 4.4 mmol/L 3.5-5.1 [facility] Protein [Mass/Vol] 6.4 g/dL 6.4-8.2 [facility] Sodium [Moles/Vol] 140 mmol/L 136-145 [facility] WBC (Bld) [#/Vol] 11.8 10*3/uL 4.4-11.0 [facility] Bilirubin Test strip Ql (U)O rdered By: Meaghan Sanchez on 02-27-2023 Bilirubin Ql (U) Negative Negative [facility] Blood erythrocytes count (nu mber/volume)Ordered By: Meaghan Sanchez on 02-27-2023 RBC (Bld) [#/Vol] 4.06 10*6/uL 4.6-6.2 [facility] Blood hemoglobin measurement (mass/volume)Ordered By: Meaghan Sanchez on 02-27-2023 Hemoglobin (Bld) [Mass/Vol] 13.6 g/dL 13.0-16.5 [facility] Blood lymphocytes/100 leukoc ytesOrdered By: Meaghan Sanchez on 02-27-2023 Lymphocytes/100 WBC (Bld) 44.5 % 19-41 [facility] Blood manual differential co mment interpretation (narrative result)Ordered By: Meaghan Sanchez on 02-27-2023 Manual differential comment Bari (Bld) [Interp] SCANNED [facility] Blood monocytes/100 leukocyt esOrdered By: Meaghan Sanchez on 02-27-2023 Monocytes/100 WBC (Bld) 5.2 % 0-10 [facility] Blood platelet mean volumeOr dered By: Meaghan Sanchez on 02-27-2023 Platelet mean volume (Bld) [Entitic vol] 9.9 fL 6.2-12.0 [facility] Determination of erythrocyte mean corpuscular volume (MCV)Ordered By: Meaghan Sanchez on 02-27-2023 MCV (RBC) [Entitic vol] 100.0 fL 80-94 [facility] Hematocrit Auto (Bld) [Volum e fraction]Ordered By: Meaghan Sanchez on 02-27-2023 Hematocrit (Bld) [Volume fraction] 40.6 % 40-54 [facility] Ketones Test strip Ql (U)Ord ered By: Meaghan Sanchez on 02-27-2023 Ketones Ql (U) Negative Negative [facility] Laboratory - Chemistry and C hemistry - challengeOrdered By: Meaghan Sanchez on 02-27-2023 ALP [Catalytic activity/Vol] 80 U/L 45-117 [facility] ALT [Catalytic activity/Vol] 36 U/L 16-61 [facility] CO2 [Moles/Vol] 34.0 mmol/L 21.0-32.0 [facility] Globulin (S) [Mass/Vol] 3.1 g/dL 2.2-4.2 [facility] Urea nitrogen/Creatinine [Mass ratio] 12.6 mg/mg 10-20 [facility] Laboratory - Drug toxicology Ordered By: Meaghan Sanchez on 02-27-2023 Amphetamines Ql (U) Negative <1000 ng/mL [facility] Benzodiazepines Ql (U) Negative < 200 ng/mL [facility] Cannabinoids Screen Ql (U) Negative < 50 ng/mL [facility] Cocaine Ql (U) Negative < 300 ng/mL [facility] Opiates Ql (U) Negative < 300 ng/mL [facility] Laboratory - Hematology and Cell countsOrdered By: Meaghan Sanchez on 02-27-2023 Erythrocyte distribution width (RBC) [Entitic vol] 46.4 fL 35.1-43.9 [facility] Erythrocyte distribution width (RBC) [Ratio] 12.5 % 11.6-14.6 [facility] Immature granulocytes/100 WBC (Bld) 0.300 % 0.0-0.9 [facility] Comment on above: IG% - Immature Granu locytes (promyelocytes, myelocytes and metamyelocytes) > 1% indicates that a LEFT SHIFT is Present. MCH (RBC) [Entitic mass] 33.5 pg 27.0-32.0 [facility] Nucleated RBC/100 WBC (Bld) [Ratio] 0 % 0-5 [facility] MCHC Auto (RBC) [Mass/Vol]Or dered By: Meaghan Sanchez on 02-27-2023 MCHC (RBC) [Mass/Vol] 33.5 g/dL 32-36 [facility] Mucus LM Ql (Urine sed)Order ed By: Meaghan Sanchez on 02-27-2023 Mucus Ql (Urine sed) 0 SEEN /hpf [facility] Nitrite Test strip Ql (U)Ord ered By: Meaghan Mcraesofíaraisa on 02-27-2023 Nitrite Ql (U) Negative Negative [facility] No Panel InformationOrdered By: Meaghan Laura on 02-27-2023 MDMA (Ecstasy) Screen Negative < 500 ng/mL [facility] Urine Barbiturates Screen Positive < 200 ng/mL [facility] Urine Drug Screen Comment [facility] Comment on above: CONFIRMATORY TESTING FOR ALL [...] Urine Methadone Screen Negative < 300 ng/mL [facility] Negative < 50 ng/mL [facility] Positive < 200 ng/mL [facility] Estimated GFR (MDRD) Amer 92 mL/min >60 [facility] Comment on above: GFR Calc Estimated GFR (MDRD) Non-Af Amer 76 mL/min >60 [facility] Comment on above: Non- GFR Calc Troponin I High Sensitivity 7 pg/mL 3.0-78.0 [facility] Comment on above: Please Note: New Renay t Units and Gender Specific Reference Ranges. For more information see Policy Stat Procedure [place] High Sensitivity Troponin (TNIH) and attachments. 33.5 pg 27.0-32.0 [facility] 12.5 % 11.6-14.6 [facility] 46.4 fl 35.1-43.9 [facility] 0.300 % 0.0-0.9 [facility] 0 % 0-5 [facility] 76 mL/min >60 [facility] 92 mL/min >60 [facility] 12.6 RATIO 10-20 [facility] 3.1 g/dL 2.2-4.2 [facility] 7 pg/mL 3.0-78.0 [facility] 80 U/L 45-117 [facility] 36 U/L 16-61 [facility] 34.0 mmol/L 21.0-32.0 [facility] Platelets bldOrdered By: Lori Sanchez on 02-27-2023 Platelets (Bld) [#/Vol] 261 10*3/uL 150-450 [facility] Protein Test strip Ql (U)Ord ered By: Meaghan Sanchez on 02-27-2023 Protein Ql (U) Negative Negative [facility] Serum or plasma albumin sadi urement (mass/volume)Ordered By: Meaghan Sanchez on 02-27-2023 Albumin [Mass/Vol] 3.3 g/dL 3.2-5.0 [facility] Serum or plasma albumin/glob ulin mass ratioOrdered By: Meaghan Sanchez on 02-27-2023 Albumin/Globulin [Mass ratio] 1.1 {ratio} 0.9-2.4 [facility] Serum or plasma calcium sadi urement (mass/volume)Ordered By: Meaghan Sanchez on 02-27-2023 Calcium [Mass/Vol] 8.8 mg/dL 8.5-10.1 [facility] Serum or plasma creatinine m easurement (mass/volume)Ordered By: Meaghan Sanchez on 02-27-2023 Creatinine [Mass/Vol] 1.03 mg/dL 0.70-1.30 [facility] Comment on above: The validity of the calculated GFR & GFRAA in patients over 70 years has not been determined. Clinical correlation is essential. Serum or plasma urea nitroge n measurement (mass/volume)Ordered By: Meaghan Sanchez on 02-27-2023 Urea nitrogen [Mass/Vol] 13 mg/dL 7-18 [facility] Squamous epithelial cells de tection in urine sediment by light microscopyOrdered By: Meaghan Sanchez on 02-27-2023 Epithelial cells.squamous LM Ql (Urine sed) 0 SEEN /hpf 0-5 [facility] Thin prep Papanicolaou smear with manual screeningOrdered By: Meaghan Sanchez on 02-27-2023 Thin prep Papanicolaou smear with manual screening 22 U/L 15-37 [facility] Thin prep Papanicolaou smear with manual screening 4 5-15 [facility] Urine blood detectionOrdered By: Meaghan Sanchez on 02-27-2023 RBC Ql (U) Negative Negative [facility] RBC Ql (U) 0 SEEN /hpf 0-5 [facility] Urine clarityOrdered By: Lori Sanchez on 02-27-2023 Clarity (U) Clear Clear [facility] Urine color determinationOrd ered By: Meaghan Sanchez on 02-27-2023 Color (U) Yellow Yellow [facility] Urine glucose detectionOrder ed By: Meaghan Sanchez on 02-27-2023 Glucose Ql (U) Normal mg/dl Normal [facility] Urine leukocyte esterase det ection by dipstickOrdered By: Meaghan Sanchez on 02-27-2023 Leukocyte esterase Test strip Ql (U) Negative Negative [facility] Urine pHOrdered By: Meaghan cordova on 02-27-2023 pH (U) 8.0 [pH] 5.0 - 8.0 [facility] Urine phencyclidine (PCP) de tectionOrdered By: Meaghan Sanchez on 02-27-2023 Phencyclidine Ql (U) Negative < 25 ng/mL [facility] Urine sediment bacteria coun t by microscopy (number/high power field)Ordered By: Meaghan Sanchez on 02-27-2023 Bacteria LM.HPF (Urine sed) [#/Area] 0 /[HPF] None Seen [facility] Urine specific gravity measu rementOrdered By: Meaghan Sanchez on 02-27-2023 Specific gravity (U) [Rel density] 1.010 1.002-1.030 [facility] Urobilinogen Auto test strip Ql (U)Ordered By: Meaghan Sanchez on 02-27-2023 Urobilinogen Ql (U) Normal mg/dl Normal [facility] B1WBon 01-14-2023 Vitamin B1 (TDP), Whole Blood 148.2 nmol/L Normal 84.3-213.3 [facility] ([place]) Comment on above: Result Comment: This assay measures the concentration of thiamine diphosphate (TDP), the primary active form of vitamin B1. Approximately 90 percent of vitamin B1 present in whole blood is TDP. Thiamine and thiamine monophosphate, which comprise the remaining 10 percent, are not measured. This test was developed and its performance characteristics determined by [facility] [place] ([facility] It has not been cleared or approved by the FDA. -[facility] is regulated under CLIA as qualified to perform high-complexity testing. This test is used for clinical purposes. It should not be regarded as investigational or for research. Performed By: [facility] [address] [place] [address] Financing Analyst: Waqar Weldon III, M.D. CLIA#: [id number] Performed By: #### L IPID, B1WB, GFR, A1C, MG, TSH, FT4, CBC, DIFF, MORPH, VIDH, CMP #### [address] [address] #### FOL, B12 #### [place] [address] Performed By: #### U A #### [address] [address] .GFRon 01-11-2023 GFR Non- 67 ml/min/1.73sqm Normal [facility] ([place]) Comment on above: Result Comment: GFR Population [...] FT4, CBC, DIFF, MORPH, VIDH, CMP #### [place] [id number] #### FOL, B12 #### [place] [address] Performed By: #### U A #### [address] [address] GFR 82 ml/min/1.73sqm Normal [facility] ([place]) Comment on above: Result Comment: GFR Population [...] FT4, CBC, DIFF, MORPH, VIDH, CMP #### [place] [address] #### JUAN MANUEL, B12 #### [place] [address] Performed By: #### U A #### [address] [address] .Manual Diffon 01-11-2023 Basophil %, Manual 0.0 % Normal 0.0-2.5 [facility] ([place]) Comment on above: Performed By: #### L IPID, B1WB, GFR, A1C, MG, TSH, FT4, CBC, DIFF, MORPH, VIDH, CMP #### [place] [address] #### FOL, B12 #### [place] [address] Performed By: #### U A #### [place] [id number] Basophil, Abs Manual 0.0 10 3/mcL Normal 0.0-0.2 [facility] ([place]) Comment on above: Performed By: #### L IPID, B1WB, GFR, A1C, MG, TSH, FT4, CBC, DIFF, MORPH, VIDH, CMP #### [address] [address] #### FOL, B12 #### [place] [address] Performed By: #### U A #### [place] [address] Eosinophil %, Manual 10.0 % High 0.0-7.0 [facility] ([place]) Comment on above: Performed By: #### L IPID, B1WB, GFR, A1C, MG, TSH, FT4, CBC, DIFF, MORPH, VIDH, CMP #### [place] [address] #### FOL, B12 #### [place] [address] Performed By: #### U A #### [place] [address] Eosinophil, Abs Manual 0.9 10 3/mcL High 0.0-0.4 [facility] ([place]) Comment on above: Performed By: #### L IPID, B1WB, GFR, A1C, MG, TSH, FT4, CBC, DIFF, MORPH, VIDH, CMP #### [place] [address] #### FOL, B12 #### [place] [address] Performed By: #### U A #### [place] [address] Lymphocyte %, Manual 50.0 % Normal 10.0-50.0 [facility] ([place]) Comment on above: Performed By: #### L IPID, B1WB, GFR, A1C, MG, TSH, FT4, CBC, DIFF, MORPH, VIDH, CMP #### [place] [address] #### FOL, B12 #### [address] [address] Performed By: #### U A #### [address] [address] Lymphocyte, Abs Manual 4.5 10 3/mcL High 0.8-3.9 [facility] ([place]) Comment on above: Performed By: #### L IPID, B1WB, GFR, A1C, MG, TSH, FT4, CBC, DIFF, MORPH, VIDH, CMP #### [address] [address] #### FOL, B12 #### [place] [address] Performed By: #### U A #### [address] [address] Monocyte %, Manual 3.0 % Normal 1.7-13.0 [facility] ([place]) Comment on above: Performed By: #### L IPID, B1WB, GFR, A1C, MG, TSH, FT4, CBC, DIFF, MORPH, VIDH, CMP #### [address] [address] #### FOL, B12 #### [place] [address] Performed By: #### U A #### [address] [address] Monocyte, Abs Manual 0.3 10 3/mcL Normal 0.2-1.0 [facility] ([place]) Comment on above: Performed By: #### L IPID, B1WB, GFR, A1C, MG, TSH, FT4, CBC, DIFF, MORPH, VIDH, CMP #### [address] [address] #### FOL, B12 #### [place] [address] Performed By: #### U A #### [address] [address] Neutrophil %, Manual 37.0 % Normal 37.0-80.0 [facility] ([place]) Comment on above: Performed By: #### L IPID, B1WB, GFR, A1C, MG, TSH, FT4, CBC, DIFF, MORPH, VIDH, CMP #### [place] [address] #### FOL, B12 #### [place] [address] Performed By: #### U A #### [place] [address] Neutrophil, Abs Manual 3.3 10 3/mcL Normal 2.9-6.2 [facility] ([place]) Comment on above: Performed By: #### L IPID, B1WB, GFR, A1C, MG, TSH, FT4, CBC, DIFF, MORPH, VIDH, CMP #### [place] [address] #### FOL, B12 #### [place] [address] Performed By: #### U A #### [place] [address] Nucleated RBC 0.0 /100 WBC Normal [facility] ([place]) Comment on above: Performed By: #### L IPID, B1WB, GFR, A1C, MG, TSH, FT4, CBC, DIFF, MORPH, VIDH, CMP #### [place] [address] #### FOL, B12 #### [place] [address] Performed By: #### U A #### [address] [address] [facility] morphology finding Nom (Bld) Normal Normal [facility] ([place]) Comment on above: Performed By: #### L IPID, B1WB, GFR, A1C, MG, TSH, FT4, CBC, DIFF, MORPH, VIDH, CMP #### [place] [address] #### FOL, B12 #### [place] [address] Performed By: #### U A #### [address] [address] Platelet Estimate Normal Normal [facility] ([place]) Comment on above: Performed By: #### L IPID, B1WB, GFR, A1C, MG, TSH, FT4, CBC, DIFF, MORPH, VIDH, CMP #### [place] [address] #### FOL, B12 #### [place] [address] Performed By: #### U A #### [place] [id number] A1Con 01-11-2023 HbA1c (Bld) [Mass fraction] 5.6 % Normal 4.3-6.4 [facility] ([place]) Comment on above: Performed By: #### L IPID, B1WB, GFR, A1C, MG, TSH, FT4, CBC, DIFF, MORPH, VIDH, CMP #### [address] [address] #### FOL, B12 #### [place] [address] Performed By: #### A LC, DRUGS #### [place] [address] B12on 01-11-2023 Cobalamin (Vitamin B12) [Mass/Vol] 465 pg/mL Normal 211-911 [facility] ([place]) Comment on above: Performed By: #### L IPID, B1WB, GFR, A1C, MG, TSH, FT4, CBC, DIFF, MORPH, VIDH, CMP #### [place] [address] #### FOL, B12 #### [place] [address] Performed By: #### U A #### [address] [address] CBCon 01-11-2023 Erythrocyte distribution width (RBC) [Ratio] 13.0 % Normal 11.5-14.5 [facility] ([place]) Comment on above: Performed By: #### L IPID, B1WB, GFR, A1C, MG, TSH, FT4, CBC, DIFF, MORPH, VIDH, CMP #### [place] [address] #### FOL, B12 #### [place] [address] Performed By: #### U A #### [place] [address] Hematocrit (Bld) [Volume fraction] 40.4 % Low 42.0-52.0 [facility] ([place]) Comment on above: Performed By: #### L IPID, B1WB, GFR, A1C, MG, TSH, FT4, CBC, DIFF, MORPH, VIDH, CMP #### [place] [address] #### FOL, B12 #### [place] [address] Performed By: #### U A #### [place] [address] Hgb 13.5 G/dL Low 14.0-18.0 [facility] ([place]) Comment on above: Performed By: #### L IPID, B1WB, GFR, A1C, MG, TSH, FT4, CBC, DIFF, MORPH, VIDH, CMP #### [place] [address] #### FOL, B12 #### [place] [address] Performed By: #### U A #### [place] [address] MCH (RBC) [Entitic mass] 33.8 pg High 27.0-31.2 [facility] ([place]) Comment on above: Performed By: #### L IPID, B1WB, GFR, A1C, MG, TSH, FT4, CBC, DIFF, MORPH, VIDH, CMP #### [address] [address] #### FOL, B12 #### [address] [address] Performed By: #### U A #### [address] [address] MCHC 33.6 G/dL Normal 31.8-35.4 [facility] ([place]) Comment on above: Performed By: #### L IPID, B1WB, GFR, A1C, MG, TSH, FT4, CBC, DIFF, MORPH, VIDH, CMP #### [address] [address] #### FOL, B12 #### [place] [address] Performed By: #### U A #### [address] [address] MCV (RBC) [Entitic vol] 100.8 fL High 80.0-94.0 [facility] ([place]) Comment on above: Performed By: #### L IPID, B1WB, GFR, A1C, MG, TSH, FT4, CBC, DIFF, MORPH, VIDH, CMP #### [address] [address] #### FOL, B12 #### [place] [address] Performed By: #### U A #### [address] [address] Platelet 280 10 3/mcL Normal 130-400 [facility] ([place]) Comment on above: Performed By: #### L IPID, B1WB, GFR, A1C, MG, TSH, FT4, CBC, DIFF, MORPH, VIDH, CMP #### [address] [address] #### FOL, B12 #### [place] [address] Performed By: #### U A #### [address] [address] Platelet mean volume (Bld) [Entitic vol] 8.3 fL Normal 7.4-10.4 [facility] ([place]) Comment on above: Performed By: #### L IPID, B1WB, GFR, A1C, MG, TSH, FT4, CBC, DIFF, MORPH, VIDH, CMP #### [place] [address] #### FOL, B12 #### [place] [address] Performed By: #### U A #### [place] [address] RBC 4.00 10 6/mcL Low 4.04-6.13 [facility] ([place]) Comment on above: Performed By: #### L IPID, B1WB, GFR, A1C, MG, TSH, FT4, CBC, DIFF, MORPH, VIDH, CMP #### [place] [address] #### FOL, B12 #### [place] [address] Performed By: #### U A #### [place] [address] WBC 9.0 10 3/mcL Normal 4.6-10.8 [facility] ([place]) Comment on above: Performed By: #### L IPID, B1WB, GFR, A1C, MG, TSH, FT4, CBC, DIFF, MORPH, VIDH, CMP #### [place] [address] #### FOL, B12 #### [place] [address] Performed By: #### U A #### [place] [address] CMPon 01-11-2023 Albumin Level 3.8 G/dL Normal 3.4-4.8 [facility] ([place]) Comment on above: Performed By: #### L IPID, B1WB, GFR, A1C, MG, TSH, FT4, CBC, DIFF, MORPH, VIDH, CMP #### [address] [address] #### FOL, B12 #### [address] [address] Performed By: #### U A #### [address] [address] Albumin/Globulin [Mass ratio] 1.3 {ratio} Normal 1.1-2.5 [facility] ([place]) Comment on above: Performed By: #### L IPID, B1WB, GFR, A1C, MG, TSH, FT4, CBC, DIFF, MORPH, VIDH, CMP #### [address] [address] #### FOL, B12 #### [place] [address] Performed By: #### U A #### [address] [address] ALP [Catalytic activity/Vol] 84 U/L Normal 40-135 [facility] ([place]) Comment on above: Performed By: #### L IPID, B1WB, GFR, A1C, MG, TSH, FT4, CBC, DIFF, MORPH, VIDH, CMP #### [address] [address] #### FOL, B12 #### [place] [address] Performed By: #### U A #### [address] [address] ALT [Catalytic activity/Vol] 43 U/L Normal 16-63 [facility] ([place]) Comment on above: Performed By: #### L IPID, B1WB, GFR, A1C, MG, TSH, FT4, CBC, DIFF, MORPH, VIDH, CMP #### [address] [address] #### FOL, B12 #### [place] [address] Performed By: #### U A #### [address] [address] AST [Catalytic activity/Vol] 24 U/L Normal 10-40 [facility] ([place]) Comment on above: Performed By: #### L IPID, B1WB, GFR, A1C, MG, TSH, FT4, CBC, DIFF, MORPH, VIDH, CMP #### [address] [address] #### FOL, B12 #### [place] [address] Performed By: #### U A #### [address] [address] Bili Total 0.5 mg/dL Normal 0.2-1.0 [facility] ([place]) Comment on above: Result Comment: Use of this assay is not recommended for patients undergoing treatment with eltrombopag due to the potential for falsely elevated results. Performed By: #### L IPID, B1WB, GFR, A1C, MG, TSH, FT4, CBC, DIFF, MORPH, VIDH, CMP #### [address] [address] #### FOL, B12 #### [place] [address] Performed By: #### U A #### [address] [address] BUN/Creatinine Ratio 14 ratio Normal 7-27 [facility] ([place]) Comment on above: Performed By: #### L IPID, B1WB, GFR, A1C, MG, TSH, FT4, CBC, DIFF, MORPH, VIDH, CMP #### [address] [address] #### FOL, B12 #### [place] [address] Performed By: #### U A #### [address] [address] Calcium [Mass/Vol] 8.7 mg/dL Normal 8.4-10.2 [facility] ([place]) Comment on above: Performed By: #### L IPID, B1WB, GFR, A1C, MG, TSH, FT4, CBC, DIFF, MORPH, VIDH, CMP #### [address] [address] #### FOL, B12 #### [place] [address] Performed By: #### U A #### [address] [address] Chloride [Moles/Vol] 100 mmol/L Normal 98-107 [facility] ([place]) Comment on above: Performed By: #### L IPID, B1WB, GFR, A1C, MG, TSH, FT4, CBC, DIFF, MORPH, VIDH, CMP #### [address] [address] #### FOL, B12 #### [place] [address] Performed By: #### U A #### [place] [address] CO2 [Moles/Vol] 33 mmol/L High 23-31 [facility] ([place]) Comment on above: Performed By: #### L IPID, B1WB, GFR, A1C, MG, TSH, FT4, CBC, DIFF, MORPH, VIDH, CMP #### [address] [address] #### FOL, B12 #### [place] [address] Performed By: #### U A #### [address] [address] Creatinine [Mass/Vol] 1.09 mg/dL Normal 0.70-1.30 [facility] ([place]) Comment on above: Performed By: #### L IPID, B1WB, GFR, A1C, MG, TSH, FT4, CBC, DIFF, MORPH, VIDH, CMP #### [address] [address] #### FOL, B12 #### [place] [address] Performed By: #### U A #### [address] [address] Electrolyte Balance 3.0 mEq/L Low 4.0-15.0 [facility] ([place]) Comment on above: Performed By: #### L IPID, B1WB, GFR, A1C, MG, TSH, FT4, CBC, DIFF, MORPH, VIDH, CMP #### [place] [address] #### FOL, B12 #### [place] [address] Performed By: #### U A #### [place] [address] Globulin 3.0 G/dL Normal [facility] ([place]) Comment on above: Performed By: #### L IPID, B1WB, GFR, A1C, MG, TSH, FT4, CBC, DIFF, MORPH, VIDH, CMP #### [place] [address] #### FOL, B12 #### [place] [address] Performed By: #### U A #### [place] [id number] Glucose [Mass/Vol] 94 mg/dL Normal 80-115 [facility] ([place]) Comment on above: Performed By: #### L IPID, B1WB, GFR, A1C, MG, TSH, FT4, CBC, DIFF, MORPH, VIDH, CMP #### [place] [address] #### FOL, B12 #### [place] [address] Performed By: #### U A #### [place] [id number] Potassium [Moles/Vol] 4.5 mmol/L Normal 3.5-5.1 [facility] ([place]) Comment on above: Performed By: #### L IPID, B1WB, GFR, A1C, MG, TSH, FT4, CBC, DIFF, MORPH, VIDH, CMP #### [address] [address] #### FOL, B12 #### [address] [address] Performed By: #### U A #### [address] [address] Sodium [Moles/Vol] 136 mmol/L Normal 136-145 [facility] ([place]) Comment on above: Performed By: #### L IPID, B1WB, GFR, A1C, MG, TSH, FT4, CBC, DIFF, MORPH, VIDH, CMP #### [address] [address] #### FOL, B12 #### [place] [address] Performed By: #### U A #### [place] [address] Total Protein 6.8 G/dL Normal 6.4-8.2 [facility] ([place]) Comment on above: Performed By: #### L IPID, B1WB, GFR, A1C, MG, TSH, FT4, CBC, DIFF, MORPH, VIDH, CMP #### [address] [address] #### FOL, B12 #### [place] [address] Performed By: #### U A #### [address] [address] Urea nitrogen [Mass/Vol] 15 mg/dL Normal 7-18 [facility] ([place]) Comment on above: Performed By: #### L IPID, B1WB, GFR, A1C, MG, TSH, FT4, CBC, DIFF, MORPH, VIDH, CMP #### [address] [address] #### FOL, B12 #### [place] [address] Performed By: #### U A #### [address] [address] FOLon 01-11-2023 Folate >48.00 High 5.38-24.00 [facility] ([place]) Comment on above: Performed By: #### L IPID, B1WB, GFR, A1C, MG, TSH, FT4, CBC, DIFF, MORPH, VIDH, CMP #### [place] [address] #### FOL, B12 #### [place] [address] Performed By: #### U A #### [place] [address] FT4on 01-11-2023 Free T4 [Mass/Vol] 1.02 ng/dL Normal 0.76-1.46 [facility] ([place]) Comment on above: Performed By: #### L IPID, B1WB, GFR, A1C, MG, TSH, FT4, CBC, DIFF, MORPH, VIDH, CMP #### [place] [address] #### FOL, B12 #### [place] [address] Performed By: #### A LC, DRUGS #### [place] [address] LABORATORYOrdered By: SYSTEM SYSTEM on 01-11-2023 25-hydroxyvitamin [...] [Vol rate/Area] 67 ml/min/1.73sqm Invalid Interpretation Code LEON Chemistry S Comment on above: Interpretive Data: [...] Code AO Hematology S LABORATORYOrdered By: FIONA YOLANDA CONTRIBUTOR_SYSTEM on 01-11-2023 Vitamin B1 (TDP), Whole [...] developed and its performance characteristics determined by [facility] [place] ([facility] It has not been cleared or approved by the FDA. -[facility] is regulated under CLIA as qualified to perform high-complexity testing. This test is used for clinical purposes. It should not be regarded as investigational or for research. Performed By: [facility] [employer] [address] [place] [address] Financing Analyst: Waqar Weldon III, M.D. CLIA#: [id number] LIPIDon 01-11-2023 Cholesterol [Mass/Vol] 132 mg/dL Normal 0-200 [facility] ([place]) Comment on above: Result Comment: Chol esterol Reference Interval: Less than 200 Desirable 200-239 Borderline high risk 240 and above High risk Performed By: #### L IPID, B1WB, GFR, A1C, MG, TSH, FT4, CBC, DIFF, MORPH, VIDH, CMP #### [address] [address] #### FOL, B12 #### [place] [address] Performed By: #### U A #### [address] [address] Cholesterol in HDL [Mass/Vol] 65 mg/dL High 40-60 [facility] ([place]) Comment on above: Performed By: #### L IPID, B1WB, GFR, A1C, MG, TSH, FT4, CBC, DIFF, MORPH, VIDH, CMP #### [address] [address] #### FOL, B12 #### [place] [address] Performed By: #### U A #### [address] [address] Cholesterol in LDL [Mass/Vol] 50 mg/dL Normal 0-130 [facility] ([place]) Comment on above: Performed By: #### L IPID, B1WB, GFR, A1C, MG, TSH, FT4, CBC, DIFF, MORPH, VIDH, CMP #### [address] [address] #### FOL, B12 #### [place] [address] Performed By: #### U A #### [address] [address] Triglyceride [Mass/Vol] 85 mg/dL Normal 0-150 [facility] ([place]) Comment on above: Result Comment: Trig lyceride Reference Interval: Less than 150 Normal 150-199 Borderline high risk 200-499 High risk 500 or higher Very high risk Performed By: #### L IPID, B1WB, GFR, A1C, MG, TSH, FT4, CBC, DIFF, MORPH, VIDH, CMP #### [address] [address] #### FOL, B12 #### [place] [address] Performed By: #### U A #### [address] [address] MGon 01-11-2023 Magnesium [Mass/Vol] 2.0 mg/dL Normal 1.8-2.4 [facility] ([place]) Comment on above: Performed By: #### L IPID, B1WB, GFR, A1C, MG, TSH, FT4, CBC, DIFF, MORPH, VIDH, CMP #### [address] [address] #### JUAN MANUEL, B12 #### [place] [address] Performed By: #### A LC, DRUGS #### [place] [address] TSHon 01-11-2023 TSH Qn 2.37 m[IU]/L Normal 0.36-3.74 [facility] ([place]) Comment on above: Performed By: #### L IPID, B1WB, GFR, A1C, MG, TSH, FT4, CBC, DIFF, MORPH, VIDH, CMP #### [address] [address] #### FOL, B12 #### [place] [address] Performed By: #### A LC, DRUGS #### [place] [address] VIDHon 01-11-2023 Vit. D 25-Hydroxy 46.6 ng/mL Normal [facility] ([place]) Comment on above: Result Comment: Inte rpretive Values Based on Total 25(OH) Vitamin D: Deficient <20 ng/mL Insufficient 20 - <30 ng/mL Sufficient 30-100 ng/mL Performed By: #### L IPID, B1WB, GFR, A1C, MG, TSH, FT4, CBC, DIFF, MORPH, VIDH, CMP #### [address] [address] #### FOL, B12 #### [address] [address] Performed By: #### U A #### [address] [address] Absolute lymphocyte countOrd ered By: Radha Quintero on 12-22-2022 Lymphocytes Auto (Unsp spec) [#/Vol] 4.70 10*3/uL 0.83-4.51 [facility] Basophil percentageOrdered B y: Radha Quintero on 12-22-2022 Basophil percentage 144 mg/dL 74-106 [facility] Basophil percentage 6.3 g/dL 6.4-8.2 [facility] Basophil percentage 0.20 mg/dL 0.20-1.00 [facility] Basophil percentage 137 mmol/L 136-145 [facility] Basophil percentage 3.9 mmol/L 3.5-5.1 [facility] Basophil percentage 106 mmol/L 98-107 [facility] Basophils (Bld) [#/Vol] 15.4 10*3/uL 4.4-11.0 [facility] Basophils (Bld) [#/Vol] 8.2 10*3/uL 2.0-7.7 [facility] Basophils/100 WBC (Bld) 53.0 % 47-70 [facility] Basophils/100 WBC (Bld) 7.3 % 0-5 [facility] Basophils/100 WBC (Bld) 0.3 % 0-1 [facility] Basophil percentageOrdered B y: Zaki Morin on 12-22-2022 Basophil percentage 110 mg/dL <200 [facility] Basophil percentage 156 mg/dL <199 [facility] Basophil percentageOrdered B y: Alfonso Jain on 12-22-2022 Basophil percentage 5.0 ug/mL 10.0-40.0 [facility] Basophil percentage 28.0 umol/L 11-32 [facility] Blood erythrocytes count (nu mber/volume)Ordered By: Radha Quintero on 12-22-2022 RBC (Bld) [#/Vol] 4.03 10*6/uL 4.6-6.2 [facility] Blood hemoglobin measurement (mass/volume)Ordered By: Radha Quintero on 12-22-2022 Hemoglobin (Bld) [Mass/Vol] 13.5 g/dL 13.0-16.5 [facility] Blood lymphocytes/100 leukoc ytesOrdered By: Radha Quintero on 12-22-2022 Lymphocytes/100 WBC (Bld) 30.6 % 19-41 [facility] Blood manual differential co mment interpretation (narrative result)Ordered By: Radha Quintero on 12-22-2022 Manual differential comment Bari (Bld) [Interp] See comment [facility] Blood monocytes/100 leukocyt esOrdered By: Radha Quintero on 12-22-2022 Monocytes/100 WBC (Bld) 8.3 % 0-10 [facility] Blood platelet mean volumeOr dered By: Radha Quintero on 12-22-2022 Platelet mean volume (Bld) [Entitic vol] 10.3 fL 6.2-12.0 [facility] Determination of erythrocyte mean corpuscular volume (MCV)Ordered By: Radha Quintero on 12-22-2022 MCV (RBC) [Entitic vol] 102.5 fL 80-94 [facility] Hematocrit Auto (Bld) [Volum e fraction]Ordered By: Radha Quintero on 12-22-2022 Hematocrit (Bld) [Volume fraction] 41.3 % 40-54 [facility] INR in Blood by Coagulation assayOrdered By: Alex Mejia on 12-22-2022 INR Coag (Bld) [Relative time] 1.0 {INR} [facility] MCHC Auto (RBC) [Mass/Vol]Or dered By: Radha Quintero on 12-22-2022 MCHC (RBC) [Mass/Vol] 32.7 g/dL 32-36 [facility] No Panel InformationOrdered By: Radha Quintero on 12-22-2022 33.5 pg 27.0-32.0 [facility] 12.9 % 11.6-14.6 [facility] 48.2 fl 35.1-43.9 [facility] 0.500 % 0.0-0.9 [facility] 0 % 0-5 [facility] 93 mL/min >60 [facility] 113 mL/min >60 [facility] 16.2 RATIO 10-20 [facility] 3.1 g/dL 2.2-4.2 [facility] 92 U/L 45-117 [facility] 40 U/L 16-61 [facility] 2.1 mg/dL 1.6-2.6 [facility] 27.0 mmol/L 21.0-32.0 [facility] 2.69 uIU/mL 0.358-3.74 [facility] 1.28 ng/mL 0.00-4.00 [facility] 46.4 ng/mL [facility] No Panel InformationOrdered By: Alex Mejia on 12-22-2022 13.0 SECONDS 11.7-14.9 [facility] 29.8 Seconds 24.1-36.2 [facility] Platelets bldOrdered By: Kamila Quintero on 12-22-2022 Platelets (Bld) [#/Vol] 264 10*3/uL 150-450 [facility] Serum or plasma albumin sadi urement (mass/volume)Ordered By: Radha Quintero on 12-22-2022 Albumin [Mass/Vol] 3.2 g/dL 3.2-5.0 [facility] Serum or plasma albumin/glob ulin mass ratioOrdered By: Radha Quintero on 12-22-2022 Albumin/Globulin [Mass ratio] 1.0 {ratio} 0.9-2.4 [facility] Serum or plasma calcium sadi urement (mass/volume)Ordered By: Radha Quintero on 12-22-2022 Calcium [Mass/Vol] 8.4 mg/dL 8.5-10.1 [facility] Serum or plasma cholesterol in HDL measurement (mass/volume)Ordered By: Zaki Morin on 12-22-2022 Cholesterol in HDL [Mass/Vol] 58 mg/dL >40 [facility] Serum or plasma cholesterol in VLDL measurement (mass/volume)Ordered By: Zaki Morin on 12-22-2022 Cholesterol in VLDL [Mass/Vol] 31 mg/dL 5-40 [facility] Serum or plasma creatinine m easurement (mass/volume)Ordered By: Radha Quintero on 12-22-2022 Creatinine [Mass/Vol] 0.86 mg/dL 0.70-1.30 [facility] Serum or plasma lamotrigine measurement (mass/volume)Ordered By: Alfonso Jain on 12-22-2022 lamoTRIgine [Mass/Vol] 3.5 ug/mL 2.0-20.0 [facility] Serum or plasma low density lipoprotein (LDL) cholesterol measurement (mass/volume)Ordered By: Zaki Morin on 12-22-2022 Cholesterol in LDL [Mass/Vol] 21 mg/dL 0-130 [facility] Serum or plasma phenobarbita l detectionOrdered By: Alfonso Jain on 12-22-2022 PHENobarbital Ql 4 ug/mL 15-40 [facility] Serum or plasma primidone me asurement (mass/volume)Ordered By: Alfonso Jain on 12-22-2022 Primidone [Mass/Vol] 8.4 ug/mL 5.0-12.0 [facility] Serum or plasma urea nitroge n measurement (mass/volume)Ordered By: Radha Quintero on 12-22-2022 Urea nitrogen [Mass/Vol] 14 mg/dL 7-18 [facility] Thin prep Papanicolaou smear with manual screeningOrdered By: Radha Quintero on 12-22-2022 Thin prep Papanicolaou smear with manual screening 21 U/L 15-37 [facility] Thin prep Papanicolaou smear with manual screening 4 5-15 [facility] Absolute lymphocyte countOrd ered By: Álvaro Hsu on 12-09-2022 Lymphocytes Auto (Unsp spec) [#/Vol] 5.24 10*3/uL 0.83-4.51 [facility] Basophil percentageOrdered B y: Álvaro Hsu on 12-09-2022 Basophil percentage 0 SEEN /hpf 0-5 [facility] Basophil percentage 89 mg/dL 74-106 [facility] Basophil percentage 6.9 g/dL 6.4-8.2 [facility] Basophil percentage 0.30 mg/dL 0.20-1.00 [facility] Basophil percentage 136 mmol/L 136-145 [facility] Basophil percentage 4.2 mmol/L 3.5-5.1 [facility] Basophil percentage 103 mmol/L 98-107 [facility] Basophils (Bld) [#/Vol] 12.9 10*3/uL 4.4-11.0 [facility] Basophils (Bld) [#/Vol] 5.9 10*3/uL 2.0-7.7 [facility] Basophils/100 WBC (Bld) 45.6 % 47-70 [facility] Basophils/100 WBC (Bld) 5.3 % 0-5 [facility] Basophils/100 WBC (Bld) 0.5 % 0-1 [facility] Bilirubin Test strip Ql (U)O rdered By: Álvaro Hsu on 12-09-2022 Bilirubin Ql (U) Negative Negative [facility] Blood erythrocytes count (nu mber/volume)Ordered By: Álvaro Hsu on 12-09-2022 RBC (Bld) [#/Vol] 4.02 10*6/uL 4.6-6.2 [facility] Blood hemoglobin measurement (mass/volume)Ordered By: Álvaro Hsu on 12-09-2022 Hemoglobin (Bld) [Mass/Vol] 13.7 g/dL 13.0-16.5 [facility] Blood lymphocytes/100 leukoc ytesOrdered By: Álvaro Hsu on 12-09-2022 Lymphocytes/100 WBC (Bld) 40.6 % 19-41 [facility] Blood manual differential co mment interpretation (narrative result)Ordered By: Álvaro Hsu on 12-09-2022 Manual differential comment Bari (Bld) [Interp] SCANNED [facility] Blood monocytes/100 leukocyt esOrdered By: Álvaro Hsu on 12-09-2022 Monocytes/100 WBC (Bld) 7.8 % 0-10 [facility] Blood platelet mean volumeOr dered By: Álvaro Hsu on 12-09-2022 Platelet mean volume (Bld) [Entitic vol] 9.8 fL 6.2-12.0 [facility] Determination of erythrocyte mean corpuscular volume (MCV)Ordered By: Álvaro Hsu on 12-09-2022 MCV (RBC) [Entitic vol] 100.5 fL 80-94 [facility] Hematocrit Auto (Bld) [Volum e fraction]Ordered By: Álvaro Hsu on 12-09-2022 Hematocrit (Bld) [Volume fraction] 40.4 % 40-54 [facility] Ketones Test strip Ql (U)Ord ered By: Álvaro Hsu on 12-09-2022 Ketones Ql (U) Negative Negative [facility] MCHC Auto (RBC) [Mass/Vol]Or dered By: Álvaro Hsu on 12-09-2022 MCHC (RBC) [Mass/Vol] 33.9 g/dL 32-36 [facility] Mucus LM Ql (Urine sed)Order ed By: Álvaro Hsu on 12-09-2022 Mucus Ql (Urine sed) 0 SEEN /hpf [facility] Nitrite Test strip Ql (U)Ord ered By: Álvaro Hsu on 12-09-2022 Nitrite Ql (U) Negative Negative [facility] No Panel InformationOrdered By: Álvaro Hsu on 12-09-2022 [facility] Negative < 50 ng/mL [facility] Positive < 200 ng/mL [facility] 34.1 pg 27.0-32.0 [facility] 12.4 % 11.6-14.6 [facility] 45.9 fl 35.1-43.9 [facility] 0.200 % 0.0-0.9 [facility] 0 % 0-5 [facility] 1+ [facility] 75 mL/min >60 [facility] 90 mL/min >60 [facility] 63.71 ml/min [facility] 13.3 RATIO 10-20 [facility] 3.2 g/dL 2.2-4.2 [facility] 93 U/L 45-117 [facility] 44 U/L 16-61 [facility] 30.0 mmol/L 21.0-32.0 [facility] < 3.0 mg/dL [facility] Platelets bldOrdered By: Álvaro Hsu on 12-09-2022 Platelets (Bld) [#/Vol] 240 10*3/uL 150-450 [facility] Protein Test strip Ql (U)Ord ered By: Álvaro Hsu on 12-09-2022 Protein Ql (U) Negative Negative [facility] Serum or plasma albumin sadi urement (mass/volume)Ordered By: Álvaro Hsu on 12-09-2022 Albumin [Mass/Vol] 3.7 g/dL 3.2-5.0 [facility] Serum or plasma albumin/glob ulin mass ratioOrdered By: Álvaro Hsu on 12-09-2022 Albumin/Globulin [Mass ratio] 1.2 {ratio} 0.9-2.4 [facility] Serum or plasma calcium sadi urement (mass/volume)Ordered By: Álvaro Hsu on 12-09-2022 Calcium [Mass/Vol] 8.6 mg/dL 8.5-10.1 [facility] Serum or plasma creatinine m easurement (mass/volume)Ordered By: Álvaro Hsu on 12-09-2022 Creatinine [Mass/Vol] 1.05 mg/dL 0.70-1.30 [facility] Serum or plasma urea nitroge n measurement (mass/volume)Ordered By: Álvaro Hsu on 12-09-2022 Urea nitrogen [Mass/Vol] 14 mg/dL 7-18 [facility] Squamous epithelial cells de tection in urine sediment by light microscopyOrdered By: Álvaro Hsu on 12-09-2022 Epithelial cells.squamous LM Ql (Urine sed) 0 SEEN /hpf 0-5 [facility] Thin prep Papanicolaou smear with manual screeningOrdered By: Álvaro Hsu on 12-09-2022 Thin prep Papanicolaou smear with manual screening 21 U/L 15-37 [facility] Thin prep Papanicolaou smear with manual screening 3 5-15 [facility] Urine blood detectionOrdered By: Álvaro Hsu on 12-09-2022 RBC Ql (U) 150 /ul Negative [facility] RBC Ql (U) 0-5 SEEN /hpf 0-5 [facility] Urine clarityOrdered By: Álvaro Hsu on 12-09-2022 Clarity (U) Clear Clear [facility] Urine color determinationOrd ered By: Álvaro Hsu on 12-09-2022 Color (U) Yellow Yellow [facility] Urine glucose detectionOrder ed By: Álvaro Hsu on 12-09-2022 Glucose Ql (U) Normal mg/dl Normal [facility] Urine leukocyte esterase det ection by dipstickOrdered By: Álvaro Hsu on 12-09-2022 Leukocyte esterase Test strip Ql (U) Negative Negative [facility] Urine pHOrdered By: Álvaro azevedo on 12-09-2022 pH (U) 6.0 [pH] 5.0 - 8.0 [facility] Urine phencyclidine (PCP) de tectionOrdered By: Álvaro Hsu on 12-09-2022 Phencyclidine Ql (U) Negative < 25 ng/mL [facility] Urine sediment bacteria coun t by microscopy (number/high power field)Ordered By: Álvaro Hsu on 12-09-2022 Bacteria LM.HPF (Urine sed) [#/Area] 0 /[HPF] None Seen [facility] Urine specific gravity measu rementOrdered By: Álvarofiorella Hsu on 12-09-2022 Specific gravity (U) [Rel density] 1.015 1.002-1.030 [facility] Urobilinogen Auto test strip Ql (U)Ordered By: Álvaro Hsu on 12-09-2022 Urobilinogen Ql (U) Normal mg/dl Normal [facility] Absolute lymphocyte countOrd ered By: Thai Nice on 11-10-2022 Lymphocytes Auto (Unsp spec) [#/Vol] 5.43 10*3/uL 0.83-4.51 [facility] Basophil percentageOrdered B y: Thai Nice on 11-10-2022 Basophil percentage 0-5 SEEN /hpf 0-5 [facility] Basophil percentage 88 mg/dL 74-106 [facility] Basophil percentage 6.7 g/dL 6.4-8.2 [facility] Basophil percentage 0.30 mg/dL 0.20-1.00 [facility] Basophil percentage 140 mmol/L 136-145 [facility] Basophil percentage 4.1 mmol/L 3.5-5.1 [facility] Basophil percentage 106 mmol/L 98-107 [facility] Basophils (Bld) [#/Vol] 12.0 10*3/uL 4.4-11.0 [facility] Basophils (Bld) [#/Vol] 4.1 10*3/uL 2.0-7.7 [facility] Basophils/100 WBC (Bld) 0.6 % 0-1 [facility] Basophils/100 WBC (Bld) 34.2 % 47-70 [facility] Basophils/100 WBC (Bld) 8.2 % 0-5 [facility] Bilirubin [Mass/Vol] 0.30 mg/dL 0.20-1.00 [facility] Comment on above: For patients on eltr ombopag therapy, use of Dimension [place] TBIL is not recommended. Chloride [Moles/Vol] 106 mmol/L 98-107 [facility] Eosinophils/100 WBC (Bld) 8.2 % 0-5 [facility] Glucose [Mass/Vol] 88 mg/dL 74-106 [facility] Neutrophils (Bld) [#/Vol] 4.1 10*3/uL 2.0-7.7 [facility] Neutrophils/100 WBC (Bld) 34.2 % 47-70 [facility] Potassium [Moles/Vol] 4.1 mmol/L 3.5-5.1 [facility] Protein [Mass/Vol] 6.7 g/dL 6.4-8.2 [facility] Sodium [Moles/Vol] 140 mmol/L 136-145 [facility] WBC (Bld) [#/Vol] 12.0 10*3/uL 4.4-11.0 [facility] Bilirubin Test strip Ql (U)O rdered By: Thai Nice on 11-10-2022 Bilirubin Ql (U) Negative Negative [facility] Blood erythrocytes count (nu mber/volume)Ordered By: Thai Nice on 11-10-2022 RBC (Bld) [#/Vol] 4.08 10*6/uL 4.6-6.2 [facility] Blood hemoglobin measurement (mass/volume)Ordered By: Thai Nice on 11-10-2022 Hemoglobin (Bld) [Mass/Vol] 13.7 g/dL 13.0-16.5 [facility] Blood lymphocytes/100 leukoc ytesOrdered By: Thai Nice on 11-10-2022 Lymphocytes/100 WBC (Bld) 45.3 % 19-41 [facility] Blood manual differential co mment interpretation (narrative result)Ordered By: Thai Nice on 11-10-2022 Manual differential comment Bari (Bld) [Interp] SCANNED [facility] Comment on above: LYMPHOCYTOSIS NOTED Blood monocytes/100 leukocyt esOrdered By: Thai Nice on 11-10-2022 Monocytes/100 WBC (Bld) 11.4 % 0-10 [facility] Blood platelet mean volumeOr dered By: Thai Nice on 11-10-2022 Platelet mean volume (Bld) [Entitic vol] 10.1 fL 6.2-12.0 [facility] Determination of erythrocyte mean corpuscular volume (MCV)Ordered By: Thai Nice on 11-10-2022 MCV (RBC) [Entitic vol] 100.5 fL 80-94 [facility] Hematocrit Auto (Bld) [Volum e fraction]Ordered By: Thai Nice on 11-10-2022 Hematocrit (Bld) [Volume fraction] 41.0 % 40-54 [facility] Ketones Test strip Ql (U)Ord ered By: Thai Nice on 11-10-2022 Ketones Ql (U) 5 mg/dl Negative [facility] Laboratory - Chemistry and C hemistry - challengeOrdered By: Thai Nice on 11-10-2022 ALP [Catalytic activity/Vol] 88 U/L 45-117 [facility] ALT [Catalytic activity/Vol] 28 U/L 16-61 [facility] CO2 [Moles/Vol] 27.0 mmol/L 21.0-32.0 [facility] Globulin (S) [Mass/Vol] 3.5 g/dL 2.2-4.2 [facility] Natriuretic peptide B (Bld) [Mass/Vol] 27.9 pg/mL 0-100 [facility] Urea nitrogen/Creatinine [Mass ratio] 20.3 mg/mg 10-20 [facility] Laboratory - Hematology and Cell countsOrdered By: Thai Nice on 11-10-2022 Erythrocyte distribution width (RBC) [Entitic vol] 46.7 fL 35.1-43.9 [facility] Erythrocyte distribution width (RBC) [Ratio] 12.6 % 11.6-14.6 [facility] Immature granulocytes/100 WBC (Bld) 0.300 % 0.0-0.9 [facility] Comment on above: IG% - Immature Granu locytes (promyelocytes, myelocytes and metamyelocytes) > 1% indicates that a LEFT SHIFT is Present. MCH (RBC) [Entitic mass] 33.6 pg 27.0-32.0 [facility] Nucleated RBC/100 WBC (Bld) [Ratio] 0 % 0-5 [facility] MCHC Auto (RBC) [Mass/Vol]Or dered By: Thai Nice on 11-10-2022 MCHC (RBC) [Mass/Vol] 33.4 g/dL 32-36 [facility] Mucus LM Ql (Urine sed)Order ed By: Thai Nice on 11-10-2022 Mucus Ql (Urine sed) 0 SEEN /hpf [facility] Nitrite Test strip Ql (U)Ord ered By: Thai Nice on 11-10-2022 Nitrite Ql (U) Negative Negative [facility] No Panel InformationOrdered By: Thai Nice on 11-10-2022 Troponin I High Sensitivity 5 pg/mL 3.0-78.0 [facility] Comment on above: Please Note: New Renay t Units and Gender Specific Reference Ranges. For more information see Policy Stat Procedure [place] High Sensitivity Troponin (TNIH) and attachments. 5 pg/mL 3.0-78.0 [facility] Estimated Creatinine Clearance Calc 50.41 ml/min [facility] Estimated GFR (MDRD) Amer 75 mL/min >60 [facility] Comment on above: GFR Calc Estimated GFR (MDRD) Non-Af Amer 62 mL/min >60 [facility] Comment on above: Non- GFR Calc 33.6 pg 27.0-32.0 [facility] 12.6 % 11.6-14.6 [facility] 46.7 fl 35.1-43.9 [facility] 0.300 % 0.0-0.9 [facility] 0 % 0-5 [facility] 62 mL/min >60 [facility] 75 mL/min >60 [facility] 50.41 ml/min [facility] 20.3 RATIO 10-20 [facility] 3.5 g/dL 2.2-4.2 [facility] 88 U/L 45-117 [facility] 28 U/L 16-61 [facility] 27.0 mmol/L 21.0-32.0 [facility] 27.9 pg/mL 0-100 [facility] Platelets bldOrdered By: Sanju Nice on 11-10-2022 Platelets (Bld) [#/Vol] 290 10*3/uL 150-450 [facility] Protein Test strip Ql (U)Ord ered By: Thai Nice on 11-10-2022 Protein Ql (U) Negative Negative [facility] Serum or plasma albumin sadi urement (mass/volume)Ordered By: Thai Nice on 11-10-2022 Albumin [Mass/Vol] 3.2 g/dL 3.2-5.0 [facility] Serum or plasma albumin/glob ulin mass ratioOrdered By: Thai Nice on 11-10-2022 Albumin/Globulin [Mass ratio] 0.9 {ratio} 0.9-2.4 [facility] Serum or plasma calcium sadi urement (mass/volume)Ordered By: Thai Nice on 11-10-2022 Calcium [Mass/Vol] 8.5 mg/dL 8.5-10.1 [facility] Serum or plasma creatinine m easurement (mass/volume)Ordered By: Thai Nice on 11-10-2022 Creatinine [Mass/Vol] 1.23 mg/dL 0.70-1.30 [facility] Comment on above: The validity of the calculated GFR & GFRAA in patients over 70 years has not been determined. Clinical correlation is essential. Serum or plasma urea nitroge n measurement (mass/volume)Ordered By: Thai Nice on 11-10-2022 Urea nitrogen [Mass/Vol] 25 mg/dL 7-18 [facility] Squamous epithelial cells de tection in urine sediment by light microscopyOrdered By: Thai Nice on 11-10-2022 Epithelial cells.squamous LM Ql (Urine sed) 0-5 SEEN /hpf 0-5 [facility] Thin prep Papanicolaou smear with manual screeningOrdered By: Thai Nice on 11-10-2022 Thin prep Papanicolaou smear with manual screening 20 U/L 15-37 [facility] Thin prep Papanicolaou smear with manual screening 7 5-15 [facility] Urine blood detectionOrdered By: Thai Nice on 11-10-2022 RBC Ql (U) Negative Negative [facility] RBC Ql (U) 0 SEEN /hpf 0-5 [facility] Urine clarityOrdered By: Sanju Nice on 11-10-2022 Clarity (U) Clear Clear [facility] Urine color determinationOrd ered By: Thai Nice on 11-10-2022 Color (U) Yellow Yellow [facility] Urine glucose detectionOrder ed By: Thai Nice on 11-10-2022 Glucose Ql (U) Normal mg/dl Normal [facility] Urine leukocyte esterase det ection by dipstickOrdered By: Thai Nice on 11-10-2022 Leukocyte esterase Test strip Ql (U) 25 /ul Negative [facility] Urine pHOrdered By: Thai franklin on 11-10-2022 pH (U) 5.0 [pH] 5.0 - 8.0 [facility] Urine sediment bacteria coun t by microscopy (number/high power field)Ordered By: Thai Nice on 11-10-2022 Bacteria LM.HPF (Urine sed) [#/Area] 0 /[HPF] None Seen [facility] Urine specific gravity measu rementOrdered By: Thai Nice on 11-10-2022 Specific gravity (U) [Rel density] 1.020 1.002-1.030 [facility] Urobilinogen Auto test strip Ql (U)Ordered By: Thai Nice on 11-10-2022 Urobilinogen Ql (U) Normal mg/dl Normal [facility] Basophil percentageOrdered B y: Elvi Layton on 11-02-2022 Basophil percentage 0 SEEN /hpf 0-5 [facility] Basophil percentageOrdered B y: Zaki Vigil on 11-02-2022 Basophil percentage 95 mg/dL 74-106 [facility] Basophil percentage 139 mmol/L 136-145 [facility] Basophil percentage 4.2 mmol/L 3.5-5.1 [facility] Basophil percentage 110 mmol/L 98-107 [facility] Chloride [Moles/Vol] 110 mmol/L 98-107 [facility] Glucose [Mass/Vol] 95 mg/dL 74-106 [facility] Potassium [Moles/Vol] 4.2 mmol/L 3.5-5.1 [facility] Sodium [Moles/Vol] 139 mmol/L 136-145 [facility] Bilirubin Test strip Ql (U)O rdered By: Elvi Layton on 11-02-2022 Bilirubin Ql (U) Negative Negative [facility] Ketones Test strip Ql (U)Ord ered By: Elvi Layton on 11-02-2022 Ketones Ql (U) Negative Negative [facility] Laboratory - Chemistry and C hemistry - challengeOrdered By: aZki Vigil on 11-02-2022 CO2 [Moles/Vol] 29.0 mmol/L 21.0-32.0 [facility] Urea nitrogen/Creatinine [Mass ratio] 13.0 mg/mg 10-20 [facility] Laboratory - Drug toxicology Ordered By: Elvi Layton on 11-02-2022 Amphetamines Ql (U) Negative <1000 ng/mL [facility] Benzodiazepines Ql (U) Positive < 200 ng/mL [facility] Cannabinoids Screen Ql (U) Negative < 50 ng/mL [facility] Cocaine Ql (U) Negative < 300 ng/mL [facility] Opiates Ql (U) Negative < 300 ng/mL [facility] Mucus LM Ql (Urine sed)Order ed By: Elvi Layton on 11-02-2022 Mucus Ql (Urine sed) 0 SEEN /hpf [facility] Nitrite Test strip Ql (U)Ord ered By: Elvi Layton on 11-02-2022 Nitrite Ql (U) Negative Negative [facility] No Panel InformationOrdered By: Elvi Layton on 11-02-2022 MDMA (Ecstasy) Screen Negative < 500 ng/mL [facility] Urine Barbiturates Screen Positive < 200 ng/mL [facility] Urine Drug Screen Comment [facility] Comment on above: CONFIRMATORY TESTING FOR ALL [...] Urine Methadone Screen Negative < 300 ng/mL [facility] Negative < 50 ng/mL [facility] Positive < 200 ng/mL [facility] No Panel InformationOrdered By: Zaki Vigil on 11-02-2022 Estimated Creatinine Clearance Calc 65.33 ml/min [facility] Estimated GFR (MDRD) Amer 105 mL/min >60 [facility] Comment on above: GFR Calc Estimated GFR (MDRD) Non-Af Amer 87 mL/min >60 [facility] Comment on above: Non- GFR Calc 87 mL/min >60 [facility] 105 mL/min >60 [facility] 65.33 ml/min [facility] 13.0 RATIO 10-20 [facility] 29.0 mmol/L 21.0-32.0 [facility] Protein Test strip Ql (U)Ord ered By: Elvi Layton on 11-02-2022 Protein Ql (U) Negative Negative [facility] Serum or plasma calcium sadi urement (mass/volume)Ordered By: Zaki Vigil on 11-02-2022 Calcium [Mass/Vol] 8.2 mg/dL 8.5-10.1 [facility] Serum or plasma creatinine m easurement (mass/volume)Ordered By: Zaki Vigil on 11-02-2022 Creatinine [Mass/Vol] 0.92 mg/dL 0.70-1.30 [facility] Comment on above: The validity of the calculated GFR & GFRAA in patients over 70 years has not been determined. Clinical correlation is essential. Serum or plasma urea nitroge n measurement (mass/volume)Ordered By: Zaki Vigil on 11-02-2022 Urea nitrogen [Mass/Vol] 12 mg/dL 7-18 [facility] Squamous epithelial cells de tection in urine sediment by light microscopyOrdered By: Elvi Layton on 11-02-2022 Epithelial cells.squamous LM Ql (Urine sed) 0 SEEN /hpf 0-5 [facility] Thin prep Papanicolaou smear with manual screeningOrdered By: Zaki Vigil on 11-02-2022 Thin prep Papanicolaou smear with manual screening 0 5-15 [facility] Urine blood detectionOrdered By: Elvi Layton on 11-02-2022 RBC Ql (U) 10 /ul Negative [facility] RBC Ql (U) 0 SEEN /hpf 0-5 [facility] Urine clarityOrdered By: Tracy Layton on 11-02-2022 Clarity (U) Clear Clear [facility] Urine color determinationOrd ered By: Elvi Layton on 11-02-2022 Color (U) Yellow Yellow [facility] Urine glucose detectionOrder ed By: Elvi Layton on 11-02-2022 Glucose Ql (U) Normal mg/dl Normal [facility] Urine leukocyte esterase det ection by dipstickOrdered By: Elvi Layton on 11-02-2022 Leukocyte esterase Test strip Ql (U) Negative Negative [facility] Urine pHOrdered By: Elvi romo on 11-02-2022 pH (U) 8.0 [pH] 5.0 - 8.0 [facility] Urine phencyclidine (PCP) de tectionOrdered By: Elvi Layton on 11-02-2022 Phencyclidine Ql (U) Negative < 25 ng/mL [facility] Urine sediment bacteria coun t by microscopy (number/high power field)Ordered By: Elvi Layton on 11-02-2022 Bacteria LM.HPF (Urine sed) [#/Area] 0 /[HPF] None Seen [facility] Urine specific gravity measu rementOrdered By: Elvi Layton on 11-02-2022 Specific gravity (U) [Rel density] 1.010 1.002-1.030 [facility] Urobilinogen Auto test strip Ql (U)Ordered By: Elvi Layton on 11-02-2022 Urobilinogen Ql (U) Normal mg/dl Normal [facility] Absolute lymphocyte countOrd ered By: Brennan Styles on 11-01-2022 Lymphocytes Auto (Unsp spec) [#/Vol] 4.85 10*3/uL 0.83-4.51 [facility] Basophil percentageOrdered B y: Brennan Styles on 11-01-2022 Basophil percentage 1.1 mmol/L 0.4-2.0 [facility] Lactate [Moles/Vol] 1.1 mmol/L 0.4-2.0 [facility] Basophil percentage 6.6 g/dL 6.4-8.2 [facility] Basophil percentage 0.50 mg/dL 0.20-1.00 [facility] Basophils (Bld) [#/Vol] 11.9 10*3/uL 4.4-11.0 [facility] Basophils (Bld) [#/Vol] 5.6 10*3/uL 2.0-7.7 [facility] Basophils/100 WBC (Bld) 0.6 % 0-1 [facility] Basophils/100 WBC (Bld) 46.8 % 47-70 [facility] Basophils/100 WBC (Bld) 6.5 % 0-5 [facility] Bilirubin [Mass/Vol] 0.50 mg/dL 0.20-1.00 [facility] Comment on above: For patients on eltr ombopag therapy, use of Dimension [place] TBIL is not recommended. Chloride [Moles/Vol] 105 mmol/L 98-107 [facility] Eosinophils/100 WBC (Bld) 6.5 % 0-5 [facility] Glucose [Mass/Vol] 77 mg/dL 74-106 [facility] Neutrophils (Bld) [#/Vol] 5.6 10*3/uL 2.0-7.7 [facility] Neutrophils/100 WBC (Bld) 46.8 % 47-70 [facility] Potassium [Moles/Vol] 4.5 mmol/L 3.5-5.1 [facility] Protein [Mass/Vol] 6.6 g/dL 6.4-8.2 [facility] Sodium [Moles/Vol] 135 mmol/L 136-145 [facility] WBC (Bld) [#/Vol] 11.9 10*3/uL 4.4-11.0 [facility] Blood erythrocytes count (nu mber/volume)Ordered By: Brennan Styles on 11-01-2022 RBC (Bld) [#/Vol] 4.09 10*6/uL 4.6-6.2 [facility] Blood hemoglobin measurement (mass/volume)Ordered By: Brennan Styles on 11-01-2022 Hemoglobin (Bld) [Mass/Vol] 13.7 g/dL 13.0-16.5 [facility] Blood lymphocytes/100 leukoc ytesOrdered By: Brennan Styles on 11-01-2022 Lymphocytes/100 WBC (Bld) 40.6 % 19-41 [facility] Blood monocytes/100 leukocyt esOrdered By: Brennan Styles on 11-01-2022 Monocytes/100 WBC (Bld) 5.3 % 0-10 [facility] Blood platelet adequacy dete ction by light microscopyOrdered By: Brennan Styles on 11-01-2022 Platelets LM Ql (Bld) ADEQUATE ADEQ [facility] Blood platelet mean volumeOr dered By: Brennan Styles on 11-01-2022 Platelet mean volume (Bld) [Entitic vol] 9.9 fL 6.2-12.0 [facility] Determination of erythrocyte mean corpuscular volume (MCV)Ordered By: Brennan Styles on 11-01-2022 MCV (RBC) [Entitic vol] 104.2 fL 80-94 [facility] Hematocrit Auto (Bld) [Volum e fraction]Ordered By: Brennan Styles on 11-01-2022 Hematocrit (Bld) [Volume fraction] 42.6 % 40-54 [facility] Laboratory - Chemistry and C hemistry - challengeOrdered By: Brennan Styles on 11-01-2022 ALP [Catalytic activity/Vol] 79 U/L 45-117 [facility] ALT [Catalytic activity/Vol] 27 U/L 16-61 [facility] CO2 [Moles/Vol] 25.0 mmol/L 21.0-32.0 [facility] Globulin (S) [Mass/Vol] 3.3 g/dL 2.2-4.2 [facility] Lipase [Catalytic activity/Vol] 14 U/L 13-75 [facility] Comment on above: Please note:LIPASE r evised reference range effective 22. New Lipase methodology. Expected to produce lower values than the previous assay method. NEW Reference Range: 13 - 75 U/L Urea nitrogen/Creatinine [Mass ratio] 15.0 mg/mg 10-20 [facility] Laboratory - Hematology and Cell countsOrdered By: Brennan Styles on 11-01-2022 Anisocytosis Ql (Bld) 1+ [facility] Erythrocyte distribution width (RBC) [Entitic vol] 49.4 fL 35.1-43.9 [facility] Erythrocyte distribution width (RBC) [Ratio] 12.8 % 11.6-14.6 [facility] Immature granulocytes/100 WBC (Bld) 0.200 % 0.0-0.9 [facility] Comment on above: IG% - Immature Granu locytes (promyelocytes, myelocytes and metamyelocytes) > 1% indicates that a LEFT SHIFT is Present. MCH (RBC) [Entitic mass] 33.5 pg 27.0-32.0 [facility] Nucleated RBC/100 WBC (Bld) [Ratio] 0 % 0-5 [facility] MCHC Auto (RBC) [Mass/Vol]Or dered By: Brennan Styles on 11-01-2022 MCHC (RBC) [Mass/Vol] 32.2 g/dL 32-36 [facility] Macrocytes detectionOrdered By: Brennan Styles on 11-01-2022 Macrocytes Ql (Bld) 1+ [facility] No Panel InformationOrdered By: Brennan Styles on 11-01-2022 Atypical Lymphocytes 2+ % [facility] Estimated Creatinine Clearance Calc 67.90 ml/min [facility] Estimated GFR (MDRD) Amer 96 mL/min >60 [facility] Comment on above: GFR Calc Estimated GFR (MDRD) Non-Af Amer 79 mL/min >60 [facility] Comment on above: Non- GFR Calc Troponin I High Sensitivity 7 pg/mL 3.0-78.0 [facility] Comment on above: Please Note: New Renay t Units and Gender Specific Reference Ranges. For more information see Policy Stat Procedure [place] High Sensitivity Troponin (TNIH) and attachments. 33.5 pg 27.0-32.0 [facility] 12.8 % 11.6-14.6 [facility] 49.4 fl 35.1-43.9 [facility] 0.200 % 0.0-0.9 [facility] 0 % 0-5 [facility] 2+ % [facility] 1+ [facility] 3.3 g/dL 2.2-4.2 [facility] 14 U/L 13-75 [facility] 7 pg/mL 3.0-78.0 [facility] 79 U/L 45-117 [facility] 27 U/L 16-61 [facility] Ovalocyte detectionOrdered B y: Brennan Styles on 11-01-2022 Ovalocytes LM Ql (Bld) RARE [facility] Platelets bldOrdered By: Vance Styles on 11-01-2022 Platelets (Bld) [#/Vol] 234 10*3/uL 150-450 [facility] RBC morphologyOrdered By: Slade Styles on 11-01-2022 RBC morphology finding Nom (Bld) N CHROM NORMAL NORM C&C [facility] Serum or plasma albumin sadi urement (mass/volume)Ordered By: Brennan Styles on 11-01-2022 Albumin [Mass/Vol] 3.3 g/dL 3.2-5.0 [facility] Serum or plasma albumin/glob ulin mass ratioOrdered By: Brennan Styles on 11-01-2022 Albumin/Globulin [Mass ratio] 1.0 {ratio} 0.9-2.4 [facility] Serum or plasma calcium sadi urement (mass/volume)Ordered By: Brennan Styles on 11-01-2022 Calcium [Mass/Vol] 8.4 mg/dL 8.5-10.1 [facility] Serum or plasma creatinine m easurement (mass/volume)Ordered By: Brennan Styles on 11-01-2022 Creatinine [Mass/Vol] 1.00 mg/dL 0.70-1.30 [facility] Comment on above: The validity of the calculated GFR & GFRAA in patients over 70 years has not been determined. Clinical correlation is essential. Serum or plasma urea nitroge n measurement (mass/volume)Ordered By: Brennan Styles on 11-01-2022 Urea nitrogen [Mass/Vol] 15 mg/dL 7-18 [facility] Thin prep Papanicolaou smear with manual screeningOrdered By: Brennan Styles on 11-01-2022 Thin prep Papanicolaou smear with manual screening 29 U/L 15-37 [facility] Thin prep Papanicolaou smear with manual screening 5 5-15 [facility] Absolute lymphocyte countOrd ered By: Zaki Estevez on 10-20-2022 Lymphocytes Auto (Unsp spec) [#/Vol] 4.44 10*3/uL 0.83-4.51 [facility] Basophil percentageOrdered B y: Zaki Estevez on 10-20-2022 Basophil percentage 93 mg/dL 74-106 [facility] Basophil percentage 6.4 g/dL 6.4-8.2 [facility] Basophil percentage 0.40 mg/dL 0.20-1.00 [facility] Basophil percentage 138 mmol/L 136-145 [facility] Basophil percentage 4.1 mmol/L 3.5-5.1 [facility] Basophil percentage 105 mmol/L 98-107 [facility] Basophil percentage 1.2 mmol/L 0.4-2.0 [facility] Basophils (Bld) [#/Vol] 9.8 10*3/uL 4.4-11.0 [facility] Basophils (Bld) [#/Vol] 3.5 10*3/uL 2.0-7.7 [facility] Basophils/100 WBC (Bld) 0.6 % 0-1 [facility] Basophils/100 WBC (Bld) 35.2 % 47-70 [facility] Basophils/100 WBC (Bld) 8.5 % 0-5 [facility] Bilirubin [Mass/Vol] 0.40 mg/dL 0.20-1.00 [facility] Comment on above: For patients on eltr ombopag therapy, use of Dimension [place] TBIL is not recommended. Chloride [Moles/Vol] 105 mmol/L 98-107 [facility] Eosinophils/100 WBC (Bld) 8.5 % 0-5 [facility] Glucose [Mass/Vol] 93 mg/dL 74-106 [facility] Lactate [Moles/Vol] 1.2 mmol/L 0.4-2.0 [facility] Neutrophils (Bld) [#/Vol] 3.5 10*3/uL 2.0-7.7 [facility] Neutrophils/100 WBC (Bld) 35.2 % 47-70 [facility] Potassium [Moles/Vol] 4.1 mmol/L 3.5-5.1 [facility] Protein [Mass/Vol] 6.4 g/dL 6.4-8.2 [facility] Sodium [Moles/Vol] 138 mmol/L 136-145 [facility] WBC (Bld) [#/Vol] 9.8 10*3/uL 4.4-11.0 [facility] Blood erythrocytes count (nu mber/volume)Ordered By: Zaki Estevez on 10-20-2022 RBC (Bld) [#/Vol] 3.85 10*6/uL 4.6-6.2 [facility] Blood hemoglobin measurement (mass/volume)Ordered By: Zaki Estevez on 10-20-2022 Hemoglobin (Bld) [Mass/Vol] 13.2 g/dL 13.0-16.5 [facility] Blood lymphocytes/100 leukoc ytesOrdered By: Zaki Estevez on 10-20-2022 Lymphocytes/100 WBC (Bld) 45.3 % 19-41 [facility] Blood manual differential co mment interpretation (narrative result)Ordered By: Zaki Estevez on 10-20-2022 Manual differential comment Bari (Bld) [Interp] SCANNED [facility] Blood monocytes/100 leukocyt esOrdered By: Zaki Estevez on 10-20-2022 Monocytes/100 WBC (Bld) 10.2 % 0-10 [facility] Blood platelet mean volumeOr dered By: Zaki Estevez on 10-20-2022 Platelet mean volume (Bld) [Entitic vol] 9.8 fL 6.2-12.0 [facility] Determination of erythrocyte mean corpuscular volume (MCV)Ordered By: Zaki Estevez on 10-20-2022 MCV (RBC) [Entitic vol] 100.3 fL 80-94 [facility] Hematocrit Auto (Bld) [Volum e fraction]Ordered By: Zaki Estevez on 10-20-2022 Hematocrit (Bld) [Volume fraction] 38.6 % 40-54 [facility] Laboratory - Chemistry and C hemistry - challengeOrdered By: Zaki Estevez on 10-20-2022 ALP [Catalytic activity/Vol] 84 U/L 45-117 [facility] ALT [Catalytic activity/Vol] 27 U/L 16-61 [facility] CO2 [Moles/Vol] 31.0 mmol/L 21.0-32.0 [facility] Globulin (S) [Mass/Vol] 3.1 g/dL 2.2-4.2 [facility] Urea nitrogen/Creatinine [Mass ratio] 15.5 mg/mg 10- [facility] Laboratory - Hematology and Cell countsOrdered By: Zaki Estevez on 10-20-2022 Erythrocyte distribution width (RBC) [Entitic vol] 48.1 fL 35.1-43.9 [facility] Erythrocyte distribution width (RBC) [Ratio] 13.0 % 11.6-14.6 [facility] Immature granulocytes/100 WBC (Bld) 0.200 % 0.0-0.9 [facility] Comment on above: IG% - Immature Granu locytes (promyelocytes, myelocytes and metamyelocytes) > 1% indicates that a LEFT SHIFT is Present. MCH (RBC) [Entitic mass] 34.3 pg 27.0-32.0 [facility] Nucleated RBC/100 WBC (Bld) [Ratio] 0 % 0- [facility] MCHC Auto (RBC) [Mass/Vol]Or dered By: Zaki Estevez on 10-20-2022 MCHC (RBC) [Mass/Vol] 34.2 g/dL 32-36 [facility] No Panel InformationOrdered By: Zaki Estevez on 10-20-2022 Atypical Lymphocytes RARE % [facility] Estimated Creatinine Clearance Calc 63.79 ml/min [facility] Estimated GFR (MDRD) Amer 92 mL/min >60 [facility] Comment on above: GFR Calc Estimated GFR (MDRD) Non-Af Amer 76 mL/min >60 [facility] Comment on above: Non- GFR Calc 34.3 pg 27.0-32.0 [facility] 13.0 % 11.6-14.6 [facility] 48.1 fl 35.1-43.9 [facility] 0.200 % 0.0-0.9 [facility] 0 % 0-5 [facility] RARE % [facility] 76 mL/min >60 [facility] 92 mL/min >60 [facility] 63.79 ml/min [facility] 15.5 RATIO 10-20 [facility] 3.1 g/dL 2.2-4.2 [facility] 84 U/L 45-117 [facility] 27 U/L 16-61 [facility] 31.0 mmol/L 21.0-32.0 [facility] Platelets bldOrdered By: Tania Estevez on 10-20-2022 Platelets (Bld) [#/Vol] 240 10*3/uL 150-450 [facility] Serum or plasma albumin sadi urement (mass/volume)Ordered By: Zaki Estevez on 10-20-2022 Albumin [Mass/Vol] 3.3 g/dL 3.2-5.0 [facility] Serum or plasma albumin/glob ulin mass ratioOrdered By: Zaki Estevez on 10-20-2022 Albumin/Globulin [Mass ratio] 1.1 {ratio} 0.9-2.4 [facility] Serum or plasma calcium sadi urement (mass/volume)Ordered By: Zaki Estevez on 10-20-2022 Calcium [Mass/Vol] 8.6 mg/dL 8.5-10.1 [facility] Serum or plasma creatinine m easurement (mass/volume)Ordered By: Zaki Estevez on 10-20-2022 Creatinine [Mass/Vol] 1.03 mg/dL 0.70-1.30 [facility] Comment on above: The validity of the calculated GFR & GFRAA in patients over 70 years has not been determined. Clinical correlation is essential. Serum or plasma urea nitroge n measurement (mass/volume)Ordered By: Zaki Estevez on 10-20-2022 Urea nitrogen [Mass/Vol] 16 mg/dL 7-18 [facility] Thin prep Papanicolaou smear with manual screeningOrdered By: Zaki Esetvez on 10-20-2022 Thin prep Papanicolaou smear with manual screening 18 U/L 15-37 [facility] Thin prep Papanicolaou smear with manual screening 2 5-15 [facility] .Auto Diffon 09-14-2022 Basophil, Absolute 0.0 10 3/mcL Normal 0.0-0.3 [facility] ([place]) Comment on above: Performed By: #### A DIFF, BMP, ANEU, MORPH, CBC, GFR ####[address] [address] Basophils/100 WBC (Bld) 0.3 % Normal 0.0-2.5 [facility] ([place]) Comment on above: Performed By: #### A DIFF, BMP, ANEU, MORPH, CBC, GFR ####[address] [address] Eosinophil, Absolute 0.7 10 3/mcL Normal 0.0-0.7 [facility] ([place]) Comment on above: Performed By: #### A DIFF, BMP, ANEU, MORPH, CBC, GFR ####[address] [address] Eosinophils/100 WBC (Bld) 5.9 % Normal 0.0-6.0 [facility] ([place]) Comment on above: Performed By: #### A DIFF, BMP, ANEU, MORPH, CBC, GFR ####[address] [address] Lymphocyte, Absolute 5.8 10 3/mcL High 0.9-4.3 [facility] ([place]) Comment on above: Performed By: #### A DIFF, BMP, ANEU, MORPH, CBC, GFR ####[address] [address] Lymphocytes/100 WBC (Bld) 51.9 % High 20.0-40.0 [facility] ([place]) Comment on above: Performed By: #### A DIFF, BMP, ANEU, MORPH, CBC, GFR ####[address] [address] Monocyte, Absolute 0.8 10 3/mcL Normal 0.1-1.4 [facility] ([place]) Comment on above: Performed By: #### A DIFF, BMP, ANEU, MORPH, CBC, GFR ####[address] [address] Monocytes/100 WBC (Bld) 6.8 % Normal 2.0-13.0 [facility] ([place]) Comment on above: Performed By: #### A DIFF, BMP, ANEU, MORPH, CBC, GFR ####[address] [address] Neutrophils/100 WBC (Bld) 35.1 % Low 50.0-75.0 [facility] ([place]) Comment on above: Performed By: #### A DIFF, BMP, ANEU, MORPH, CBC, GFR ####[address] [address] .GFRon 09-14-2022 GFR Non- >60 Normal [facility] ([place]) Comment on above: Result Comment: GFR Population [...] A DIFF, BMP, ANEU, MORPH, CBC, GFR ####[address] [address] GFR >60 Normal [facility] ([place]) Comment on above: Result Comment: GFR Population [...] A DIFF, BMP, ANEU, MORPH, CBC, GFR ####[address] [address] .Morphon 09-14-2022 Macrocytosis 1+ Normal [facility] ([place]) Comment on above: Performed By: #### A DIFF, BMP, ANEU, MORPH, CBC, GFR ####[address] [address] Platelet Estimate Normal Normal [facility] ([place]) Comment on above: Performed By: #### A DIFF, BMP, ANEU, MORPH, CBC, GFR ####[address] [address] .NEUABSon 09-14-2022 Neutrophil, Absolute 3.9 10 3/mcL Normal 2.3-8.1 [facility] ([place]) Comment on above: Performed By: #### A DIFF, BMP, ANEU, MORPH, CBC, GFR ####[place] [address] BMPon 09-14-2022 BUN/Creatinine Ratio 28.0 ratio High 10.0-22.0 [facility] ([place]) Comment on above: Performed By: #### A DIFF, BMP, ANEU, MORPH, CBC, GFR ####[place] [address] Calcium [Mass/Vol] 8.5 mg/dL Low 8.7-10.4 [facility] ([place]) Comment on above: Performed By: #### A DIFF, BMP, ANEU, MORPH, CBC, GFR ####[place] [address] Chloride [Moles/Vol] 106 mmol/L Normal 98-110 [facility] ([place]) Comment on above: Performed By: #### A DIFF, BMP, ANEU, MORPH, CBC, GFR ####[place] [address] CO2 [Moles/Vol] 26 mmol/L Normal 22-32 [facility] ([place]) Comment on above: Performed By: #### A DIFF, BMP, ANEU, MORPH, CBC, GFR ####[place] [address] Creatinine [Mass/Vol] 0.93 mg/dL Normal 0.60-1.40 [facility] ([place]) Comment on above: Performed By: #### A DIFF, BMP, ANEU, MORPH, CBC, GFR ####[address] [address] Electrolyte Balance 6.0 mEq/L Normal 4.0-15.0 [facility] ([place]) Comment on above: Performed By: #### A DIFF, BMP, ANEU, MORPH, CBC, GFR ####[address] [address] Glucose [Mass/Vol] 86 mg/dL Normal 82-115 [facility] ([place]) Comment on above: Performed By: #### A DIFF, BMP, ANEU, MORPH, CBC, GFR ####[address] [address] Potassium [Moles/Vol] 4.3 mmol/L Normal 3.5-5.0 [facility] ([place]) Comment on above: Performed By: #### A DIFF, BMP, ANEU, MORPH, CBC, GFR ####[place] [address] Sodium [Moles/Vol] 138 mmol/L Normal 136-145 [facility] ([place]) Comment on above: Performed By: #### A DIFF, BMP, ANEU, MORPH, CBC, GFR ####[place] [address] Urea nitrogen [Mass/Vol] 26.0 mg/dL High 8.0-22.0 [facility] ([place]) Comment on above: Performed By: #### A DIFF, BMP, ANEU, MORPH, CBC, GFR ####[address] [address] CBCon 09-14-2022 WBC 11.2 10 3/mcL High 4.5-10.8 [facility] ([place]) Comment on above: Performed By: #### A DIFF, BMP, ANEU, MORPH, CBC, GFR ####[place] [address] Erythrocyte distribution width (RBC) [Ratio] 13.2 % Normal 11.5-15.5 [facility] ([place]) Comment on above: Performed By: #### A DIFF, BMP, ANEU, MORPH, CBC, GFR ####[place] [address] Hematocrit (Bld) [Volume fraction] 39.5 % Low 40.0-52.0 [facility] ([place]) Comment on above: Performed By: #### A DIFF, BMP, ANEU, MORPH, CBC, GFR ####[place] [address] Hgb 13.1 G/dL Normal 13.0-17.5 [facility] ([place]) Comment on above: Performed By: #### A DIFF, BMP, ANEU, MORPH, CBC, GFR ####[place] [address] MCH (RBC) [Entitic mass] 33.3 pg High 27.0-33.0 [facility] ([place]) Comment on above: Performed By: #### A DIFF, BMP, ANEU, MORPH, CBC, GFR ####[place] [address] MCHC 33.2 G/dL Normal 32.0-36.0 [facility] ([place]) Comment on above: Performed By: #### A DIFF, BMP, ANEU, MORPH, CBC, GFR ####[place] [address] MCV (RBC) [Entitic vol] 100.3 fL High 81.0-100.0 [facility] ([place]) Comment on above: Performed By: #### A DIFF, BMP, ANEU, MORPH, CBC, GFR ####[place] [address] Platelet 268 10 3/mcL Normal 150-450 [facility] ([place]) Comment on above: Performed By: #### A DIFF, BMP, ANEU, MORPH, CBC, GFR ####[place] [address] Platelet mean volume (Bld) [Entitic vol] 8.6 fL Normal 6.4-10.5 [facility] ([place]) Comment on above: Performed By: #### A DIFF, BMP, ANEU, MORPH, CBC, GFR ####[place] [address] RBC 3.94 10 6/mcL Low 4.50-6.00 [facility] ([place]) Comment on above: Performed By: #### A DIFF, BMP, ANEU, MORPH, CBC, GFR ####[place] [id number] [place] [address] LABORATORYOrdered By: SYSTEM SYSTEM on 09-14-2022 Basophils (Bld) [#/Vol] 0.0 103/mcL Invalid Interpretation Code 0.0 - 0.3 10^3/mcL Workflow SS Basophils/100 WBC (Bld) 0.3 % Invalid Interpretation Code 0.0 - 2.5 % AH Workflow SS Calcium [Mass/Vol] 8.5 mg/dL Invalid [...] Invalid Interpretation Code 0.0 - 0.7 10^3/mcL AH Workflow SS Eosinophils/100 WBC (Bld) 5.9 % Invalid Interpretation Code 0.0 - 6.0 % AH Workflow SS Erythrocyte distribution width (RBC) [Ratio] 13.2 % Invalid Interpretation Code 11.5 - 15.5 % AH Workflow SS GFR/1.73 sq M.predicted among blacks [...] 10^3/mcL AH Workflow SS Lymphocytes/100 WBC (Bld) 51.9 % Invalid Interpretation Code 20.0 - 40.0 % AH Workflow SS Macrocytes Ql (Bld) 1+ *NA* (09/14/22 5:24 AM) Invalid Interpretation Code AH Workflow SS MCH (RBC) [Entitic mass] 33.3 pg Invalid Interpretation Code 27.0 - 33.0 pg AH Workflow SS MCHC 33.2 G/dL Invalid Interpretation Code 32.0 - 36.0 G/dL AH Workflow SS MCV (RBC) [Entitic vol] 100.3 fL Invalid Interpretation Code 81.0 - 100.0 fL AH Workflow SS Monocytes (Bld) [#/Vol] 0.8 103/mcL Invalid Interpretation Code 0.1 - 1.4 10^3/mcL AH Workflow SS Monocytes/100 WBC (Bld) 6.8 % Invalid Interpretation Code 2.0 - 13.0 % AH Workflow SS Neutrophils (Bld) [#/Vol] 3.9 103/mcL Invalid Interpretation Code 2.3 - 8.1 10^3/mcL AH Workflow SS Neutrophils/100 WBC (Bld) 35.1 % Invalid Interpretation Code 50.0 - 75.0 % AH Workflow SS Platelet mean volume (Bld) [Entitic vol] 8.6 fL Invalid Interpretation Code 6.4 - 10.5 fL AH Workflow SS Platelets (Bld) [#/Vol] 268 103/mcL Invalid Interpretation Code 150 - 450 10^3/mcL AH Workflow SS Platelets LM Ql (Bld) Normal *NA* (09/14/22 5:24 AM) Invalid Interpretation Code AH Workflow SS Potassium [Moles/Vol] 4.3 mmol/L Invalid [...] Lvl 2.5 UG/ML Normal 1.0-13.0 [facility] ([place]) Comment on above: Result Comment: This test was developed and its performance characteristics determined by [facility] [place] [facility] It has not been cleared or approved by the FDA. [facility] is regulated under CLIA as qualified to perform high-complexity testing. This test is used for clinical purposes. It should not be regarded as investigational or for research. Performed By: [facility] [address] [place] [address] Financing Analyst: Waqar Weldon III, M.D. CLIA#: [id number] Performed By: #### L MTR, AMM, ADIFF, ANEU, ESR, CBC, TSH, CMP, GFR, MG ####[place] [address] MRI BRAIN W/O CONTRASTon MRI BRAIN W/O [...] 09/14/2022 1:53:34 PM Ordering Provider: BRIANNA [facility] ([place]) MRI SPINE CERVICAL W/O CONTR Sami 09-14-2022 [...] anterior thecal sac without central spinal stenosis. [id number] left and mild right foraminal stenosis. C4-C5: [...] PM Ordering Provider: BRIANNA Fine [facility] ([place]) .Auto Diffon 09-13-2022 Basophil, Absolute 0.1 10 3/mcL Normal 0.0-0.3 [facility] ([place]) Comment on above: Performed By: #### L MTR, AMM, ADIFF, ANEU, ESR, CBC, TSH, CMP, GFR, MG ####[address] [address] Basophils/100 WBC (Bld) 0.6 % Normal 0.0-2.5 [facility] ([place]) Comment on above: Performed By: #### L MTR, AMM, ADIFF, ANEU, ESR, CBC, TSH, CMP, GFR, MG ####[address] [address] Eosinophil, Absolute 0.6 10 3/mcL Normal 0.0-0.7 [facility] ([place]) Comment on above: Performed By: #### L MTR, AMM, ADIFF, ANEU, ESR, CBC, TSH, CMP, GFR, MG ####[address] [address] Eosinophils/100 WBC (Bld) 5.3 % Normal 0.0-6.0 [facility] ([place]) Comment on above: Performed By: #### L MTR, AMM, ADIFF, ANEU, ESR, CBC, TSH, CMP, GFR, MG ####[address] [address] Lymphocyte, Absolute 5.6 10 3/mcL High 0.9-4.3 [facility] ([place]) Comment on above: Performed By: #### L MTR, AMM, ADIFF, ANEU, ESR, CBC, TSH, CMP, GFR, MG ####[address] [address] Lymphocytes/100 WBC (Bld) 48.9 % High 20.0-40.0 [facility] ([place]) Comment on above: Performed By: #### L MTR, AMM, ADIFF, ANEU, ESR, CBC, TSH, CMP, GFR, MG ####[address] [address] Monocyte, Absolute 0.7 10 3/mcL Normal 0.1-1.4 [facility] ([place]) Comment on above: Performed By: #### L MTR, AMM, ADIFF, ANEU, ESR, CBC, TSH, CMP, GFR, MG ####[address] [address] Monocytes/100 WBC (Bld) 5.8 % Normal 2.0-13.0 [facility] ([place]) Comment on above: Performed By: #### L MTR, AMM, ADIFF, ANEU, ESR, CBC, TSH, CMP, GFR, MG ####[address] [address] Neutrophils/100 WBC (Bld) 39.4 % Low 50.0-75.0 [facility] ([place]) Comment on above: Performed By: #### L MTR, AMM, ADIFF, ANEU, ESR, CBC, TSH, CMP, GFR, MG ####[address] [address] .GFRon 09-13-2022 GFR >60 Normal [facility] ([place]) Comment on above: Result Comment: GFR Population [...] ANEU, ESR, CBC, TSH, CMP, GFR, MG ####[address] [address] GFR Non- >60 Normal [facility] ([place]) Comment on above: Result Comment: GFR Population [...] ANEU, ESR, CBC, TSH, CMP, GFR, MG ####[address] [address] .NEUABSon 09-13-2022 Neutrophil, Absolute 4.5 10 3/mcL Normal 2.3-8.1 [facility] ([place]) Comment on above: Performed By: #### L MTR, AMM, ADIFF, ANEU, ESR, CBC, TSH, CMP, GFR, MG ####[address] [address] Laila 09-13-2022 Ethanol Level <10.0 Normal [facility] ([place]) Comment on above: Performed By: #### A LC, DRUGS #### [address] [address] Citlalli 09-13-2022 Ammonia 25 mcmol/l Normal 11-32 [facility] ([place]) Comment on above: Result Comment: Spec imen slightly hemolyzed. Performed By: #### L MTR, AMM, ADIFF, ANEU, ESR, CBC, TSH, CMP, GFR, MG ####[place] [address] CBCon 09-13-2022 Erythrocyte distribution width (RBC) [Ratio] 13.2 % Normal 11.5-15.5 [facility] ([place]) Comment on above: Performed By: #### L MTR, AMM, ADIFF, ANEU, ESR, CBC, TSH, CMP, GFR, MG ####[place] [address] Hematocrit (Bld) [Volume fraction] 39.9 % Low 40.0-52.0 [facility] ([place]) Comment on above: Performed By: #### L MTR, AMM, ADIFF, ANEU, ESR, CBC, TSH, CMP, GFR, MG ####[place] [address] Hgb 13.5 G/dL Normal 13.0-17.5 [facility] ([place]) Comment on above: Performed By: #### L MTR, AMM, ADIFF, ANEU, ESR, CBC, TSH, CMP, GFR, MG ####[place] [address] MCH (RBC) [Entitic mass] 33.8 pg High 27.0-33.0 [facility] ([place]) Comment on above: Performed By: #### L MTR, AMM, ADIFF, ANEU, ESR, CBC, TSH, CMP, GFR, MG ####[place] [address] MCHC 33.8 G/dL Normal 32.0-36.0 [facility] ([place]) Comment on above: Performed By: #### L MTR, AMM, ADIFF, ANEU, ESR, CBC, TSH, CMP, GFR, MG ####[place] [address] MCV (RBC) [Entitic vol] 99.9 fL Normal 81.0-100.0 [facility] ([place]) Comment on above: Performed By: #### L MTR, AMM, ADIFF, ANEU, ESR, CBC, TSH, CMP, GFR, MG ####[address] [address] Platelet 295 10 3/mcL Normal 150-450 [facility] ([place]) Comment on above: Performed By: #### L MTR, AMM, ADIFF, ANEU, ESR, CBC, TSH, CMP, GFR, MG ####[place] [address] Platelet mean volume (Bld) [Entitic vol] 8.4 fL Normal 6.4-10.5 [facility] ([place]) Comment on above: Performed By: #### L MTR, AMM, ADIFF, ANEU, ESR, CBC, TSH, CMP, GFR, MG ####[address] [address] RBC 4.00 10 6/mcL Low 4.50-6.00 [facility] ([place]) Comment on above: Performed By: #### L MTR, AMM, ADIFF, ANEU, ESR, CBC, TSH, CMP, GFR, MG ####[place] [id number] WBC 11.4 10 3/mcL High 4.5-10.8 [facility] ([place]) Comment on above: Performed By: #### L MTR, AMM, ADIFF, ANEU, ESR, CBC, TSH, CMP, GFR, MG ####[place] [address] CMPon 09-13-2022 Albumin Level 3.2 G/dL Normal 3.2-4.8 [facility] ([place]) Comment on above: Performed By: #### L MTR, AMM, ADIFF, ANEU, ESR, CBC, TSH, CMP, GFR, MG ####[place] [address] Albumin/Globulin [Mass ratio] 1.3 {ratio} Normal 0.9-1.6 [facility] ([place]) Comment on above: Performed By: #### L MTR, AMM, ADIFF, ANEU, ESR, CBC, TSH, CMP, GFR, MG ####[address] [address] ALP [Catalytic activity/Vol] 72 U/L Normal 38-126 [facility] ([place]) Comment on above: Performed By: #### L MTR, AMM, ADIFF, ANEU, ESR, CBC, TSH, CMP, GFR, MG ####[place] [address] ALT [Catalytic activity/Vol] 7 U/L Low 12-55 [facility] ([place]) Comment on above: Performed By: #### L MTR, AMM, ADIFF, ANEU, ESR, CBC, TSH, CMP, GFR, MG ####[place] [address] AST [Catalytic activity/Vol] 12 U/L Normal 8-34 [facility] ([place]) Comment on above: Performed By: #### L MTR, AMM, ADIFF, ANEU, ESR, CBC, TSH, CMP, GFR, MG ####[place] [address] Bili Total 0.50 mg/dL Normal 0.20-1.20 [facility] ([place]) Comment on above: Result Comment: Use of this assay is not recommended for patients undergoing treatment with eltrombopag due to the potential for falsely elevated results. Performed By: #### L MTR, AMM, ADIFF, ANEU, ESR, CBC, TSH, CMP, GFR, MG ####[place] [address] BUN/Creatinine Ratio 19.0 ratio Normal 10.0-22.0 [facility] ([place]) Comment on above: Performed By: #### L MTR, AMM, ADIFF, ANEU, ESR, CBC, TSH, CMP, GFR, MG ####[place] [address] Calcium [Mass/Vol] 8.8 mg/dL Normal 8.7-10.4 [facility] ([place]) Comment on above: Performed By: #### L MTR, AMM, ADIFF, ANEU, ESR, CBC, TSH, CMP, GFR, MG ####[address] [address] Chloride [Moles/Vol] 110 mmol/L Normal 98-110 [facility] ([place]) Comment on above: Performed By: #### L MTR, AMM, ADIFF, ANEU, ESR, CBC, TSH, CMP, GFR, MG ####[address] [address] CO2 [Moles/Vol] 30 mmol/L Normal 22-32 [facility] ([place]) Comment on above: Performed By: #### L MTR, AMM, ADIFF, ANEU, ESR, CBC, TSH, CMP, GFR, MG ####[place] [address] Creatinine [Mass/Vol] 0.84 mg/dL Normal 0.60-1.40 [facility] ([place]) Comment on above: Performed By: #### L MTR, AMM, ADIFF, ANEU, ESR, CBC, TSH, CMP, GFR, MG ####[place] [address] Electrolyte Balance 0.0 mEq/L Low 4.0-15.0 [facility] ([place]) Comment on above: Performed By: #### L MTR, AMM, ADIFF, ANEU, ESR, CBC, TSH, CMP, GFR, MG ####[address] [address] Globulin 2.5 G/dL Normal 1.5-3.8 [facility] ([place]) Comment on above: Performed By: #### L MTR, AMM, ADIFF, ANEU, ESR, CBC, TSH, CMP, GFR, MG ####[address] [address] Glucose [Mass/Vol] 125 mg/dL High 82-115 [facility] ([place]) Comment on above: Performed By: #### L MTR, AMM, ADIFF, ANEU, ESR, CBC, TSH, CMP, GFR, MG ####[place] [address] Potassium [Moles/Vol] 4.2 mmol/L Normal 3.5-5.0 [facility] ([place]) Comment on above: Performed By: #### L MTR, AMM, ADIFF, ANEU, ESR, CBC, TSH, CMP, GFR, MG ####[place] [address] Sodium [Moles/Vol] 140 mmol/L Normal 136-145 [facility] ([place]) Comment on above: Performed By: #### L MTR, AMM, ADIFF, ANEU, ESR, CBC, TSH, CMP, GFR, MG ####[place] [address] Total Protein 5.7 G/dL Normal 5.7-8.2 [facility] ([place]) Comment on above: Result Comment: No te - New Reference Range in effect 19 Performed By: #### L MTR, AMM, ADIFF, ANEU, ESR, CBC, TSH, CMP, GFR, MG ####[place] [address] Urea nitrogen [Mass/Vol] 16.0 mg/dL Normal 8.0-22.0 [facility] ([place]) Comment on above: Performed By: #### L MTR, AMM, ADIFF, ANEU, ESR, CBC, TSH, CMP, GFR, MG ####[place] [address] DRUGSon 09-13-2022 Acetaminophen [Mass/Vol] ug/mL Low 10.0-20.0 [facility] ([place]) Comment on above: Performed By: #### A LC, DRUGS #### [place] [address] Ethanol Level <10.0 Normal [facility] ([place]) Comment on above: Performed By: #### A LC, DRUGS #### [place] [id number] Salicylate Lvl (ds) <3.0 Low 10.0-25.0 [facility] ([place]) Comment on above: Performed By: #### A LC, DRUGS #### [place] [address] Serum Drugs screened: See Below Normal [facility] ([place]) Comment on above: Result Comment: This drug screen is a presumptive screening only. No confirmation will be performed unless requested. Drugs included in the ER serum drug screen are: Threshold Ethanol 10.0 mg/dL Salicylate 2.0 mg/dl Acetaminophen 2.0 mcg/mL Testing has been performed FOR MEDICAL PURPOSES ONLY. Performed By: #### A LC, DRUGS #### [facility] [address] [place] [id number] ESRon 09-13-2022 Erythrocyte Sed Rate 7 mm/hr Normal 0-20 [facility] ([place]) Comment on above: Performed By: #### L MTR, AMM, ADIFF, ANEU, ESR, CBC, TSH, CMP, GFR, MG ####[place] [address] LABORATORYOrdered By: Sujey woods on 09-13-2022 Acetaminophen [Mass/Vol] mcg/mL Invalid Interpretation Code 10.0 - 20.0 mcg/mL ADM SS Salicylates [Mass/Vol] mg/dL Invalid Interpretation Code 10.0 - 25.0 mg/dL ADM SS Serum Drugs screened: See Below (09/13/22 12:53 PM) Invalid Interpretation Code Chemistry S LABORATORYOrdered By: SYSTEM SYSTEM on 09-13-2022 Albumin BCP dye [Mass/Vol] 3.2 G/dL Invalid Interpretation Code 3.2 - 4.8 G/dL ADM SS Albumin/Globulin [Mass ratio] 1.3 {ratio} Invalid Interpretation Code 0.9 - 1.6 ratio ADM SS ALP [Catalytic activity/Vol] 72 U/L Invalid Interpretation Code 38 - 126 U/L ADM SS ALT No additional P-5'-P [Catalytic activity/Vol] 7 U/L Invalid Interpretation Code 12 - 55 U/L ADM SS Ammonia (P) [Moles/Vol] 25 umol/L Invalid Interpretation Code 11 - 32 mcmol/L ADM SS Comment on above: Result Comment: [...] Invalid Interpretation Code 40.0 - 52.0 % Workflow SS Hemoglobin (Bld) [Mass/Vol] 13.5 G/dL Invalid Interpretation Code 13.0 - 17.5 G/dL Workflow SS Lymphocytes (Bld) [#/Vol] 5.6 103/mcL Invalid Interpretation Code 0.9 - 4.3 10^3/mcL Workflow SS Lymphocytes/100 WBC (Bld) 48.9 % Invalid Interpretation Code 20.0 - 40.0 % AH Workflow SS Magnesium [Mass/Vol] 1.9 mg/dL Invalid Interpretation Code 1.6 - 2.4 mg/dL AH ADM SS MCH (RBC) [Entitic mass] 33.8 pg Invalid Interpretation Code 27.0 - 33.0 pg AH Workflow SS MCHC 33.8 G/dL Invalid Interpretation Code 32.0 - 36.0 G/dL AH Workflow SS MCV (RBC) [Entitic vol] 99.9 fL Invalid Interpretation Code 81.0 - 100.0 fL AH Workflow SS Monocytes (Bld) [#/Vol] 0.7 103/mcL Invalid Interpretation Code 0.1 - 1.4 10^3/mcL AH Workflow SS Monocytes/100 WBC (Bld) 5.8 % Invalid Interpretation Code 2.0 - 13.0 % AH Workflow SS Neutrophils (Bld) [#/Vol] 4.5 103/mcL Invalid Interpretation Code 2.3 - 8.1 10^3/mcL AH Workflow SS Neutrophils/100 WBC (Bld) 39.4 % Invalid Interpretation Code 50.0 - 75.0 % AH Workflow SS Platelet mean volume (Bld) [Entitic vol] 8.4 fL Invalid Interpretation Code 6.4 - 10.5 fL AH Workflow SS Platelets (Bld) [#/Vol] 295 103/mcL Invalid Interpretation Code 150 - 450 10^3/mcL AH Workflow SS Potassium [Moles/Vol] 4.2 mmol/L Invalid Interpretation Code 3.5 - 5.0 mEq/L AH ADM SS Protein [Mass/Vol] 5.7 G/dL Invalid Interpretation Code 5.7 - 8.2 G/dL AH ADM SS RBC (Bld) [#/Vol] 4.00 106/mcL Invalid Interpretation Code 4.50 - 6.00 10^6/mcL AH Workflow SS Sodium [Moles/Vol] 140 mmol/L Invalid Interpretation Code 136 - 145 mEq/L ADM SS TSH Qn 1.888 mIU/mL Invalid [...] AH Manual Heme SS LABORATORYOrdered By: FIONA GUERRERO CONTRIBUTOR_SYSTEM on 09-13-2022 Lamotrigine Lvl 2.5 UG/ML Invalid Interpretation Code 1.0-13.0UG/M L AH Sendouts SS Comment on above: Result Comment: This test was developed and its performance characteristics determined by [facility]ology [facility] [place] ([facility] It has not been cleared or approved by the FDA. -[facility] is regulated under CLIA as qualified to perform high-complexity testing. This test is used for clinical purposes. It should not be regarded as investigational or for research. Performed By: [facility] [address] [place] [address] Financing Analyst: Waqar Weldon III, M.D. CLIA#: [id number] Laboratory - Drug toxicology Ordered By: SYSTEM SYSTEM on 09-13-2022 Ethanol [Mass/Vol] mg/dL Invalid Interpretation Code AH ADM SS MGon 09-13-2022 Magnesium [Mass/Vol] 1.9 mg/dL Normal 1.6-2.4 [facility] ([place]) Comment on above: Performed By: #### L MTR, AMM, ADIFF, ANEU, ESR, CBC, TSH, CMP, GFR, MG ####[place] [address] TSHon 09-13-2022 TSH 1.888 mIU/mL Normal 0.550-4.780 [facility] ([place]) Comment on above: Result Comment: No te - New Reference Range in effect 19 Performed By: #### L MTR, AMM, ADIFF, ANEU, ESR, CBC, TSH, CMP, GFR, MG ####[address] [address] .Auto Diffon 09-12-2022 Basophil, Absolute 0.1 10 3/mcL Normal 0.0-0.2 [facility] ([place]) Comment on above: Performed By: #### A LC, DRUGS #### [address] [address] Basophils/100 WBC (Bld) 0.9 % Normal 0.0-2.5 [facility] ([place]) Comment on above: Performed By: #### A LC, DRUGS #### [address] [address] Eosinophil, Absolute 0.6 10 3/mcL High 0.0-0.4 [facility] ([place]) Comment on above: Performed By: #### A LC, DRUGS #### [address] [address] Eosinophils/100 WBC (Bld) 6.3 % Normal 0.0-7.0 [facility] ([place]) Comment on above: Performed By: #### A LC, DRUGS #### [address] [address] Lymphocyte, Absolute 3.7 10 3/mcL Normal 0.8-3.9 [facility] ([place]) Comment on above: Performed By: #### A LC, DRUGS #### [address] [address] Lymphocytes/100 WBC (Bld) 37.8 % Normal 10.0-50.0 [facility] ([place]) Comment on above: Performed By: #### A LC, DRUGS #### [address] [address] Monocyte, Absolute 0.6 10 3/mcL Normal 0.2-1.0 [facility] ([place]) Comment on above: Performed By: #### A LC, DRUGS #### [address] [address] Monocytes/100 WBC (Bld) 5.6 % Normal 1.7-13.0 [facility] ([place]) Comment on above: Performed By: #### A LC, DRUGS #### [address] [address] Neutrophils/100 WBC (Bld) 49.4 % Normal 37.0-80.0 [facility] ([place]) Comment on above: Performed By: #### A LC, DRUGS #### [address] [address] .GFRon 09-12-2022 GFR Non- 69 ml/min/1.73sqm Normal [facility] ([place]) Comment on above: Result Comment: GFR Population [...] Performed By: #### A LC, DRUGS #### [place] [address] GFR 83 ml/min/1.73sqm Normal [facility] ([place]) Comment on above: Result Comment: GFR Population [...] Performed By: #### A LC, DRUGS #### [address] [address] .MDWon 09-12-2022 Monocyte Distribution Width 19.86 Normal 0.00-20.00 [facility] ([place]) Comment on above: Result Comment: For ED adult patients suspected of sepsis, MDW<=20.0 does not rule out sepsis or risk of sepsis Performed By: #### A GUTIERREZ, DRUGS #### [address] [address] .NEUABSon 09-12-2022 Neutrophil, Absolute 4.9 10 3/mcL Normal 2.9-6.2 [facility] ([place]) Comment on above: Performed By: #### A GUTIERREZ, DRUGS #### [address] [address] BMPon 09-12-2022 BUN/Creatinine Ratio 19 ratio Normal 7-27 [facility] ([place]) Comment on above: Performed By: #### A GUTIERREZ, DRUGS #### [place] [id number] Calcium [Mass/Vol] 9.3 mg/dL Normal 8.4-10.2 [facility] ([place]) Comment on above: Performed By: #### A GUTIERREZ, DRUGS #### [place] [id number] Chloride [Moles/Vol] 105 mmol/L Normal 98-107 [facility] ([place]) Comment on above: Performed By: #### A GUTIERREZ, DRUGS #### [place] [id number] CO2 [Moles/Vol] 32 mmol/L High 23-31 [facility] ([place]) Comment on above: Performed By: #### A GUTIERREZ, DRUGS #### [place] [id number] Creatinine [Mass/Vol] 1.07 mg/dL Normal 0.70-1.30 [facility] ([place]) Comment on above: Performed By: #### A LC, DRUGS #### [place] [id number] Electrolyte Balance 5.0 mEq/L Normal 4.0-15.0 [facility] ([place]) Comment on above: Performed By: #### A GUTIERREZ, DRUGS #### [place] [id number] Glucose [Mass/Vol] 112 mg/dL Normal 80-115 [facility] ([place]) Comment on above: Performed By: #### A LC, DRUGS #### [address] [address] Potassium [Moles/Vol] 4.6 mmol/L Normal 3.5-5.1 [facility] ([place]) Comment on above: Performed By: #### A LC, DRUGS #### [address] [address] Sodium [Moles/Vol] 142 mmol/L Normal 136-145 [facility] ([place]) Comment on above: Performed By: #### A LC, DRUGS #### [address] [address] Urea nitrogen [Mass/Vol] 20 mg/dL High 7-18 [facility] ([place]) Comment on above: Performed By: #### A LC, DRUGS #### [address] [address] CBCon 09-12-2022 Erythrocyte distribution width (RBC) [Ratio] 13.4 % Normal 11.5-14.5 [facility] ([place]) Comment on above: Performed By: #### A DONALD, GFR, ADCHICA KELLER MDW, CBC #### [address] [address] Hematocrit (Bld) [Volume fraction] 42.1 % Normal 42.0-52.0 [facility] ([place]) Comment on above: Performed By: #### A DONALD, GFR, ADCHICA KELLER MDW, CBC #### [address] [address] Hgb 14.3 G/dL Normal 14.0-18.0 [facility] ([place]) Comment on above: Performed By: #### A DONALD, GFR, CHICA SPRING MDW, CBC #### [address] [address] MCH (RBC) [Entitic mass] 33.5 pg High 27.0-31.2 [facility] ([place]) Comment on above: Performed By: #### A DONALD, GFR, ADCHICA KELLER MDW, CBC #### [address] [address] MCHC 34.0 G/dL Normal 31.8-35.4 [facility] ([place]) Comment on above: Performed By: #### A DONALD GFR, CHICA SPRING MDW, CBC #### [address] [address] MCV (RBC) [Entitic vol] 98.5 fL High 80.0-94.0 [facility] ([place]) Comment on above: Performed By: #### A DONALD, GFR, ADKRISHNA, LUZ MARINA COTO, CBC #### [address] [address] Platelet 307 10 3/mcL Normal 130-400 [facility] ([place]) Comment on above: Performed By: #### A DONALD GFR, CHICA SPRING MDW, CBC #### [address] [address] Platelet mean volume (Bld) [Entitic vol] 8.2 fL Normal 7.4-10.4 [facility] ([place]) Comment on above: Performed By: #### A DONALD GFR, CHICA SPRING MDW, CBC #### [address] [address] RBC 4.27 10 6/mcL Normal 4.04-6.13 [facility] ([place]) Comment on above: Performed By: #### A DONALD, GFR, ADKRISHNA, LUZ MARINA COTO, CBC #### [address] [address] WBC 9.9 10 3/mcL Normal 4.6-10.8 [facility] ([place]) Comment on above: Performed By: #### A DONALD GFR, CHICA SPRING MDW, CBC #### [address] [address] [address] HEAD OR BRAIN W/O CONTRAS Ton [...] PM Ordering Provider: SONDRA Fine [facility] ([place]) CT SPINE CERVICAL W/O DIONICIO Walsh 09-12-2022 CT SPINE CERVICAL W/O CONTRAST ORIGINAL [...] Ordering Provider: SONDRA HEARD Normal [facility] ([place]) Massimo 09-12-2022 Color (U) Yellow Normal [facility] ([place]) Comment on above: Performed By: #### U A #### [address] [address] Glucose (U) [Mass/Vol] Negative Normal Negative [facility] ([place]) Comment on above: Performed By: #### U A #### [address] [address] Ketones Ql (U) Negative Normal Negative [facility] ([place]) Comment on above: Performed By: #### U A #### [address] [address] UA Appear Clear Normal Clear [facility] ([place]) Comment on above: Performed By: #### U A #### [address] [address] UA Blood Negative Normal Negative [facility] ([place]) Comment on above: Performed By: #### U A #### [address] [address] UA Leuk Est Negative Normal Negative [facility] ([place]) Comment on above: Performed By: #### U A #### [address] [address] UA Nitrite Negative Normal Negative [facility] ([place]) Comment on above: Performed By: #### U A #### [address] [address] UA pH 6.0 Normal 5.0 - 8.0 [facility] ([place]) Comment on above: Performed By: #### U A #### [address] [address] UA Protein Negative Normal Negative [facility] ([place]) Comment on above: Performed By: #### U A #### [place] [id number] UA Spec Grav 1.020 Normal 1.015-1.025 [facility] ([place]) Comment on above: Performed By: #### U A #### [address] [address] UA Specimen Type Clean Catch Normal [facility] ([place]) Comment on above: Performed By: #### U A #### [address] [address] UA Urobilinogen 0.2 E.U./dL Normal 0.2-1.0 [facility] ([place]) Comment on above: Performed By: #### U A #### [address] [address] Urobilinogen (U) [Mass/Vol] Negative Normal Negative [facility] ([place]) Comment on above: Performed By: #### U A #### [address] [address] Absolute lymphocyte countOrd ered By: Gregorio Bingham on 09-10-2022 Lymphocytes Auto (Unsp spec) [#/Vol] 4.88 10*3/uL 0.83-4.51 [facility] Basophil percentageOrdered B y: Gregorio Bingham on 09-10-2022 Basophil percentage 106 mg/dL 74-106 [facility] Basophil percentage 140 mmol/L 136-145 [facility] Basophil percentage 4.1 mmol/L 3.5-5.1 [facility] Basophil percentage 110 mmol/L 98-107 [facility] Basophils (Bld) [#/Vol] 10.5 10*3/uL 4.4-11.0 [facility] Basophils (Bld) [#/Vol] 4.0 10*3/uL 2.0-7.7 [facility] Basophils/100 WBC (Bld) 0.4 % 0-1 [facility] Basophils/100 WBC (Bld) 38.0 % 47-70 [facility] Basophils/100 WBC (Bld) 8.1 % 0-5 [facility] Chloride [Moles/Vol] 110 mmol/L 98-107 [facility] Eosinophils/100 WBC (Bld) 8.1 % 0-5 [facility] Glucose [Mass/Vol] 106 mg/dL 74-106 [facility] Comment on above: Fasting Glucose resu lt from 100 to 125 mg/dL suggests IMPAIRED HOMEOSTASIS per A.D.A. criteria. Neutrophils (Bld) [#/Vol] 4.0 10*3/uL 2.0-7.7 [facility] Neutrophils/100 WBC (Bld) 38.0 % 47-70 [facility] Potassium [Moles/Vol] 4.1 mmol/L 3.5-5.1 [facility] Sodium [Moles/Vol] 140 mmol/L 136-145 [facility] WBC (Bld) [#/Vol] 10.5 10*3/uL 4.4-11.0 [facility] Blood erythrocytes count (nu mber/volume)Ordered By: Gregorio Bingham on 09-10-2022 RBC (Bld) [#/Vol] 3.99 10*6/uL 4.6-6.2 [facility] Blood hemoglobin measurement (mass/volume)Ordered By: Gregorio Bignham on 09-10-2022 Hemoglobin (Bld) [Mass/Vol] 13.3 g/dL 13.0-16.5 [facility] Blood lymphocytes/100 leukoc ytesOrdered By: Gregorio Bingham on 09-10-2022 Lymphocytes/100 WBC (Bld) 46.4 % 19-41 [facility] Blood manual differential co mment interpretation (narrative result)Ordered By: Gregorio Bingham on 09-10-2022 Manual differential comment Bari (Bld) [Interp] SCANNED [facility] Blood monocytes/100 leukocyt esOrdered By: Gregorio Bingham on 09-10-2022 Monocytes/100 WBC (Bld) 6.8 % 0-10 [facility] Blood platelet mean volumeOr dered By: Gregorio Bingham on 09-10-2022 Platelet mean volume (Bld) [Entitic vol] 9.8 fL 6.2-12.0 [facility] Determination of erythrocyte mean corpuscular volume (MCV)Ordered By: Gregorio Bingham on 09-10-2022 MCV (RBC) [Entitic vol] 100.3 fL 80-94 [facility] Hematocrit Auto (Bld) [Volum e fraction]Ordered By: Gregorio Bingham on 09-10-2022 Hematocrit (Bld) [Volume fraction] 40.0 % 40-54 [facility] Laboratory - Chemistry and C hemistry - challengeOrdered By: Gregorio Bingham on 09-10-2022 CO2 [Moles/Vol] 27.0 mmol/L 21.0-32.0 [facility] Urea nitrogen/Creatinine [Mass ratio] 20.5 mg/mg 10-20 [facility] Laboratory - Hematology and Cell countsOrdered By: Gregorio Bingham on 09-10-2022 Erythrocyte distribution width (RBC) [Entitic vol] 46.6 fL 35.1-43.9 [facility] Erythrocyte distribution width (RBC) [Ratio] 12.6 % 11.6-14.6 [facility] Immature granulocytes/100 WBC (Bld) 0.300 % 0.0-0.9 [facility] Comment on above: IG% - Immature Granu locytes (promyelocytes, myelocytes and metamyelocytes) > 1% indicates that a LEFT SHIFT is Present. MCH (RBC) [Entitic mass] 33.3 pg 27.0-32.0 [facility] Nucleated RBC/100 WBC (Bld) [Ratio] 0 % 0-5 [facility] Auto (RBC) [Mass/Vol]Or dered By: Gregorio Bingham on 09-10-2022 MCHC (RBC) [Mass/Vol] 33.3 g/dL 32-36 [facility] No Panel InformationOrdered By: Gregorio Bingham on 09-10-2022 Atypical Lymphocytes 1+ % [facility] Estimated Creatinine Clearance Calc 59.70 ml/min [facility] Estimated GFR (MDRD) Amer 127 mL/min >60 [facility] Comment on above: GFR Calc Estimated GFR (MDRD) Non-Af Amer 105 mL/min >60 [facility] Comment on above: Non- GFR Calc Reactive Lymphocytes RARE [facility] Thyroid Stimulating Hormone (TSH) 2.30 uIU/mL 0.358-3.74 [facility] 33.3 pg 27.0-32.0 [facility] 12.6 % 11.6-14.6 [facility] 46.6 fl 35.1-43.9 [facility] 0.300 % 0.0-0.9 [facility] 0 % 0-5 [facility] 1+ % [facility] RARE [facility] 105 mL/min >60 [facility] 127 mL/min >60 [facility] 59.70 ml/min [facility] 20.5 RATIO 10-20 [facility] 27.0 mmol/L 21.0-32.0 [facility] 2.30 uIU/mL 0.358-3.74 [facility] Platelets bldOrdered By: Kuldip Bingham on 09-10-2022 Platelets (Bld) [#/Vol] 307 10*3/uL 150-450 [facility] Serum or plasma calcium sadi urement (mass/volume)Ordered By: Gregorio Bingham on 09-10-2022 Calcium [Mass/Vol] 8.6 mg/dL 8.5-10.1 [facility] Serum or plasma creatinine m easurement (mass/volume)Ordered By: Gregorio Bingham on 09-10-2022 Creatinine [Mass/Vol] 0.78 mg/dL 0.70-1.30 [facility] Comment on above: The validity of the calculated GFR & GFRAA in patients over 70 years has not been determined. Clinical correlation is essential. Serum or plasma urea nitroge n measurement (mass/volume)Ordered By: Gregorio Bingham on 09-10-2022 Urea nitrogen [Mass/Vol] 16 mg/dL 7-18 [facility] Thin prep Papanicolaou smear with manual screeningOrdered By: Gregorio Bingham on 09-10-2022 Thin prep Papanicolaou smear with manual screening 3 5-15 [facility] Laboratory - Drug toxicology Ordered By: Ashlee Salas on 09-09-2022 Amphetamines Ql (U) Negative <1000 ng/mL [facility] Benzodiazepines Ql (U) Negative < 200 ng/mL [facility] Cannabinoids Screen Ql (U) Negative < 50 ng/mL [facility] Cocaine Ql (U) Negative < 300 ng/mL [facility] Opiates Ql (U) Negative < 300 ng/mL [facility] No Panel InformationOrdered By: Ashlee Salas on 09-09-2022 MDMA (Ecstasy) Screen Negative < 500 ng/mL [facility] Urine Barbiturates Screen Positive < 200 ng/mL [facility] Urine Drug Screen Comment [facility] Comment on above: CONFIRMATORY TESTING FOR ALL [...] Urine Methadone Screen Negative < 300 ng/mL [facility] Negative < 50 ng/mL [facility] Positive < 200 ng/mL [facility] Ethyl Alcohol Level < 3.0 mg/dL [facility] Comment on above: The serum:whole bloo d ethanol ratio is approximately 1.14and varies slightly with hematocrit. Medical Alcohol reference interval and critical value innon-tolerant individuals; 50 - 100 Impairment 100 Intoxication 100 - 250 Severe Poisoning 250 - 400 Deep/possible fatal coma Troponin I High Sensitivity 6 pg/mL 3.0-78.0 [facility] Comment on above: Please Note: New Renay t Units and Gender Specific Reference Ranges. For more information see Policy Stat Procedure [place] High Sensitivity Troponin (TNIH) and attachments. 6 pg/mL 3.0-78.0 [facility] < 3.0 mg/dL [facility] Urine phencyclidine (PCP) de tectionOrdered By: Ashlee Salas on 09-09-2022 Phencyclidine Ql (U) Negative < 25 ng/mL [facility] Absolute lymphocyte counton 04-11-2022 Lymphocytes Auto (Unsp spec) [#/Vol] 4.36 10*3/uL 0.83-4.51 [facility] Work Phone: Basophil percentageon 2022 Basophils/100 WBC (Bld) 0.8 % 0-1 [facility] Work Phone: Chloride [Moles/Vol] 107 mmol/L 98-107 [facility] Work Phone: Eosinophils/100 WBC (Bld) 6.8 % 0-5 [facility] Work Phone: Glucose [Mass/Vol] 96 mg/dL 74-106 [facility] Work Phone: Neutrophils (Bld) [#/Vol] 4.1 10*3/uL 2.0-7.7 [facility] Work Phone: Neutrophils/100 WBC (Bld) 41.7 % 47-70 [facility] Work Phone: Potassium [Moles/Vol] 4.3 mmol/L 3.5-5.1 [facility] Work Phone: Sodium [Moles/Vol] 140 mmol/L 136-145 [facility] Work Phone: WBC (Bld) [#/Vol] 10.0 10*3/uL 4.4-11.0 [place] [facility] Work Phone: Blood erythrocytes count (nu mber/volume)on 04-11-2022 RBC (Bld) [#/Vol] 4.09 10*6/uL 4.6-6.2 [facility] Work Phone: Blood hemoglobin measurement (mass/volume)on 04-11-2022 Hemoglobin (Bld) [Mass/Vol] 13.4 g/dL 13.0-16.5 [facility] Work Phone: Blood lymphocytes/100 leukoc yteson 04-11-2022 Lymphocytes/100 WBC (Bld) 43.8 % 19-41 [facility] Work Phone: Blood manual differential co mment interpretation (narrative result)on 04-11-2022 Manual differential comment Bari (Bld) [Interp] See comment [facility] Work Phone: Comment on above: AUTO DIFF [place] Blood monocytes/100 leukocyt eson 04-11-2022 Monocytes/100 WBC (Bld) 6.7 % 0-10 [facility] Work Phone: Blood platelet mean volumeon 04-11-2022 Platelet mean volume (Bld) [Entitic vol] 10.9 fL 6.2-12.0 [facility] Work Phone: Determination of erythrocyte mean corpuscular volume (MCV)on 04-11-2022 MCV (RBC) [Entitic vol] 97.3 fL 80-94 [facility] Work Phone: Hematocrit Auto (Bld) [Volum e fraction]on 04-11-2022 Hematocrit (Bld) [Volume fraction] 39.8 % 40-54 [facility] Work Phone: Laboratory - Chemistry and C hemistry - challengeon 04-11-2022 CO2 [Moles/Vol] 26.0 mmol/L 21.0-32.0 [facility] Work Phone: Urea nitrogen/Creatinine [Mass ratio] 17.0 mg/mg 10-20 [facility] Work Phone: Laboratory - Hematology and Cell countson 04-11-2022 Erythrocyte distribution width (RBC) [Entitic vol] 45.4 fL 35.1-43.9 [facility] Work Phone: Erythrocyte distribution width (RBC) [Ratio] 12.8 % 11.6-14.6 [facility] Work Phone: Immature granulocytes/100 WBC (Bld) 0.200 % 0.0-0.9 [facility] Work Phone: Comment on above: IG% - Immature Granu locytes (promyelocytes, myelocytes and metamyelocytes) > 1% indicates that a LEFT SHIFT is Present. MCH (RBC) [Entitic mass] 32.8 pg 27.0-32.0 [facility] Work Phone: Nucleated RBC/100 WBC (Bld) [Ratio] 0 % 0-5 [facility] Work Phone: MCHC Auto (RBC) [Mass/Vol]on 04-11-2022 MCHC (RBC) [Mass/Vol] 33.7 g/dL 32-36 [facility] Work Phone: No Panel Informationon 04-11 Estimated Creatinine Clearance Calc 71.51 ml/min [facility] Work Phone: Estimated GFR (MDRD) Amer 103 mL/min >60 [facility] Work Phone: Comment on above: GFR Calc Estimated GFR (MDRD) Non-Af Amer 85 mL/min >60 [facility] Work Phone: Comment on above: Non- GFR Calc Platelets bldon 04-11-2022 Platelets (Bld) [#/Vol] 275 10*3/uL 150-450 [facility] Work Phone: Serum or plasma calcium sadi urement (mass/volume)on 04-11-2022 Calcium [Mass/Vol] 8.6 mg/dL 8.5-10.1 [facility] Work Phone: Serum or plasma creatinine m easurement (mass/volume)on 04-11-2022 Creatinine [Mass/Vol] 0.94 mg/dL 0.70-1.30 [facility] Work Phone: Comment on above: The validity of the calculated GFR & GFRAA in patients over 70 years has not been determined. Clinical correlation is essential. Serum or plasma urea nitroge n measurement (mass/volume)on 04-11-2022 Urea nitrogen [Mass/Vol] 16 mg/dL 7-18 [facility] Work Phone: Thin prep Papanicolaou smear with manual screeningon 04-11-2022 Thin prep Papanicolaou smear with manual screening 7 5-15 [facility] Work Phone: Absolute lymphocyte counton 04-10-2022 Lymphocytes Auto (Unsp spec) [#/Vol] 5.55 10*3/uL 0.83-4.51 [facility] Work Phone: Basophil percentageon 2022 Basophils/100 WBC (Bld) 0.5 % 0-1 [facility] Work Phone: [phone] Bilirubin [Mass/Vol] 0.50 mg/dL 0.20-1.00 [facility] Work Phone: Comment on above: For patients on eltr ombopag therapy, use of Dimension [place] TBIL is not recommended. Chloride [Moles/Vol] 106 mmol/L 98-107 [facility] Work Phone: Eosinophils/100 WBC (Bld) 5.6 % 0-5 [facility] Work Phone: Glucose [Mass/Vol] 92 mg/dL 74-106 [facility] Work Phone: Neutrophils (Bld) [#/Vol] 5.7 10*3/uL 2.0-7.7 [facility] Work Phone: Neutrophils/100 WBC (Bld) 43.2 % 47-70 [facility] Work Phone: Potassium [Moles/Vol] 4.3 mmol/L 3.5-5.1 [facility] Work Phone: Protein [Mass/Vol] 7.0 g/dL 6.4-8.2 [facility] Work Phone: Sodium [Moles/Vol] 139 mmol/L 136-145 [facility] Work Phone: WBC (Bld) [#/Vol] 13.3 10*3/uL 4.4-11.0 [facility] Work Phone: Blood erythrocytes count (nu mber/volume)on 04-10-2022 RBC (Bld) [#/Vol] 4.43 10*6/uL 4.6-6.2 [facility] Work Phone: Blood hemoglobin measurement (mass/volume)on 04-10-2022 Hemoglobin (Bld) [Mass/Vol] 14.5 g/dL 13.0-16.5 [facility] Work Phone: Blood lymphocytes/100 leukoc yteson 04-10-2022 Lymphocytes/100 WBC (Bld) 41.9 % 19-41 [facility] Work Phone: Blood manual differential co mment interpretation (narrative result)on 04-10-2022 Manual differential comment Bari (Bld) [Interp] SCANNED [facility] Work Phone: Blood monocytes/100 leukocyt eson 04-10-2022 Monocytes/100 WBC (Bld) 8.5 % 0-10 [facility] Work Phone: Blood platelet mean volumeon 04-10-2022 Platelet mean volume (Bld) [Entitic vol] 10.1 fL 6.2-12.0 [facility] Work Phone: Determination of erythrocyte mean corpuscular volume (MCV)on 04-10-2022 MCV (RBC) [Entitic vol] 98.9 fL 80-94 [facility] Work Phone: Hematocrit Auto (Bld) [Volum e fraction]on 04-10-2022 Hematocrit (Bld) [Volume fraction] 43.8 % 40-54 [facility] Work Phone: Laboratory - Chemistry and C hemistry - challengeon 04-10-2022 ALP [Catalytic activity/Vol] 85 U/L 45-117 [facility] Work Phone: ALT [Catalytic activity/Vol] 20 U/L 16-61 [facility] Work Phone: CO2 [Moles/Vol] 29.0 mmol/L 21.0-32.0 [facility] Work Phone: Globulin (S) [Mass/Vol] 3.6 g/dL 2.2-4.2 [facility] Work Phone: Lipase [Catalytic activity/Vol] 55 U/L 73-393 [facility] Work Phone: Urea nitrogen/Creatinine [Mass ratio] 14.5 mg/mg 10-20 [facility] Work Phone: Laboratory - Hematology and Cell countson 04-10-2022 Erythrocyte distribution width (RBC) [Entitic vol] 46.5 fL 35.1-43.9 [facility] Work Phone: Erythrocyte distribution width (RBC) [Ratio] 12.8 % 11.6-14.6 [facility] Work Phone: Immature granulocytes/100 WBC (Bld) 0.300 % 0.0-0.9 [facility] Work Phone: Comment on above: IG% - Immature Granu locytes (promyelocytes, myelocytes and metamyelocytes) > 1% indicates that a LEFT SHIFT is Present. MCH (RBC) [Entitic mass] 32.7 pg 27.0-32.0 [facility] Work Phone: Nucleated RBC/100 WBC (Bld) [Ratio] 0 % 0-5 [facility] Work Phone: MCHC Auto (RBC) [Mass/Vol]on 04-10-2022 MCHC (RBC) [Mass/Vol] 33.1 g/dL 32-36 [facility] Work Phone: No Panel Informationon 04-10 Atypical Lymphocytes 1+ % [facility] Work Phone: Estimated Creatinine Clearance Calc 66.11 ml/min [facility] Work Phone: Estimated GFR (MDRD) Amer 100 mL/min >60 [facility] Work Phone: Comment on above: GFR Calc Estimated GFR (MDRD) Non-Af Amer 83 mL/min >60 [facility] Work Phone: Comment on above: Non- GFR Calc Platelets bldon 04-10-2022 Platelets (Bld) [#/Vol] 356 10*3/uL 150-450 [facility] Work Phone: Serum or plasma albumin sadi urement (mass/volume)on 04-10-2022 Albumin [Mass/Vol] 3.4 g/dL 3.2-5.0 [facility] Work Phone: Serum or plasma albumin/glob ulin mass ratioon 04-10-2022 Albumin/Globulin [Mass ratio] 0.9 {ratio} 0.9-2.4 [facility] Work Phone: Serum or plasma calcium sadi urement (mass/volume)on 04-10-2022 Calcium [Mass/Vol] 8.9 mg/dL 8.5-10.1 [facility] Work Phone: Serum or plasma creatinine m easurement (mass/volume)on 04-10-2022 Creatinine [Mass/Vol] 0.96 mg/dL 0.70-1.30 [facility] Work Phone: Comment on above: The validity of the calculated GFR & GFRAA in patients over 70 years has not been determined. Clinical correlation is essential. Serum or plasma urea nitroge n measurement (mass/volume)on 04-10-2022 Urea nitrogen [Mass/Vol] 14 mg/dL 7-18 [facility] Work Phone: Thin prep Papanicolaou smear with manual screeningon 04-10-2022 Thin prep Papanicolaou smear with manual screening 10 U/L 15-37 [facility] Work Phone: Thin prep Papanicolaou smear with manual screening 4 5-15 [facility] Work Phone: Basophil percentageon 2022 Bilirubin [Mass/Vol] 0.60 mg/dL 0.20-1.00 [facility] Work Phone: Comment on above: For patients on eltr ombopag therapy, use of Dimension [place] TBIL is not recommended. Chloride [Moles/Vol] 108 mmol/L 98-107 [facility] Work Phone: Glucose [Mass/Vol] 94 mg/dL 74-106 [facility] Work Phone: Potassium [Moles/Vol] 4.2 mmol/L 3.5-5.1 [facility] Work Phone: Protein [Mass/Vol] 6.9 g/dL 6.4-8.2 [facility] Work Phone: Sodium [Moles/Vol] 139 mmol/L 136-145 [facility] Work Phone: Laboratory - Chemistry and C hemistry - challengeon 04-08-2022 ALP [Catalytic activity/Vol] 87 U/L 45-117 [facility] Work Phone: ALT [Catalytic activity/Vol] 24 U/L 16-61 [facility] Work Phone: CO2 [Moles/Vol] 31.0 mmol/L 21.0-32.0 [facility] Work Phone: Globulin (S) [Mass/Vol] 3.5 g/dL 2.2-4.2 [facility] Work Phone: Urea nitrogen/Creatinine [Mass ratio] 13.0 mg/mg 10-20 [facility] Work Phone: No Panel Informationon 04-08 Estimated GFR (MDRD) Amer 96 mL/min >60 [facility] Work Phone: Comment on above: GFR Calc Estimated GFR (MDRD) Non-Af Amer 79 mL/min >60 [facility] Work Phone: Comment on above: Non- GFR Calc Serum or plasma albumin sadi urement (mass/volume)on 04-08-2022 Albumin [Mass/Vol] 3.4 g/dL 3.2-5.0 [facility] Work Phone: Serum or plasma albumin/glob ulin mass ratioon 04-08-2022 Albumin/Globulin [Mass ratio] 1.0 {ratio} 0.9-2.4 [facility] Work Phone: Serum or plasma calcium sadi urement (mass/volume)on 04-08-2022 Calcium [Mass/Vol] 9.2 mg/dL 8.5-10.1 [facility] Work Phone: Serum or plasma creatinine m easurement (mass/volume)on 04-08-2022 Creatinine [Mass/Vol] 1.00 mg/dL 0.70-1.30 [facility] Work Phone: Comment on above: The validity of the calculated GFR & GFRAA in patients over 70 years has not been determined. Clinical correlation is essential. Serum or plasma urea nitroge n measurement (mass/volume)on 04-08-2022 Urea nitrogen [Mass/Vol] 13 mg/dL 7-18 [facility] Work Phone: Thin prep Papanicolaou smear with manual screeningon 04-08-2022 Thin prep Papanicolaou smear with manual screening 12 U/L 15-37 [facility] Work Phone: Thin prep Papanicolaou smear with manual screening 0 5-15 [facility] Work Phone: CT MAXILLOFACIAL WO IV CONTR Sami 02-06-2022 CT MAXILLOFACIAL WO IV CONTRAST [id number] Date/Time: 02/06/2022 13:21 Procedure: CT MAXILLOFACIAL [...] region, however also extends into the right cryptologist and parapharyngeal spaces on the right. Small [...] Electronically Signed Date/Time: 02/06/2022 1:42 PM EDT [facility] Basophil percentageon 2021 Bilirubin [Mass/Vol] 0.40 mg/dL 0.20-1.00 [facility] Work Phone: Comment on above: For patients on eltr ombopag therapy, use of Dimension [place] TBIL is not recommended. Cholesterol [Mass/Vol] 121 mg/dL <200 [facility] Work Phone: Comment on above: <200 mg/dL Desirable 200-240 mg/dL Borderline >240 mg/dL High Risk Protein [Mass/Vol] 7.5 g/dL 6.4-8.2 [facility] Work Phone: Triglyceride [Mass/Vol] 73 mg/dL <199 [facility] Work Phone: Comment on above: The drugs N-Acetylcy steine and Metamizole may falsely depress this assay.Serum Triglycerides Reference Interval Normal <150 mg/dL Borderline high 150 - 199 mg/dL High 200 - 499 mg/dL Very High > or = 500 mg/dL Direct bilirubinon Bilirubin.direct [Mass/Vol] 0.13 mg/dL 0.00-0.30 [facility] Work Phone: Laboratory - Chemistry and C hemistry - challengeon 01-14-2022 ALP [Catalytic activity/Vol] 89 U/L 45-117 [facility] Work Phone: ALT [Catalytic activity/Vol] 26 U/L 16-61 [facility] Work Phone: Globulin (S) [Mass/Vol] 3.8 g/dL 2.2-4.2 [facility] Work Phone: T4 [Mass/Vol] 9.2 ug/dL 4.5-12.1 [facility] Work Phone: No Panel Informationon 01-14 Thyroid Stimulating Hormone (TSH) 1.90 uIU/mL 0.358-3.74 [facility] Work Phone: Serum or plasma albumin sadi urement (mass/volume)on 01-14-2022 Albumin [Mass/Vol] 3.7 g/dL 3.2-5.0 [facility] Work Phone: Serum or plasma cholesterol in HDL measurement (mass/volume)on 01-14-2022 Cholesterol in HDL [Mass/Vol] 63 mg/dL >40 [facility] Work Phone: Comment on above: The drugs N-Acetylcy steine and Metamizole may falsely depress this assay. Reference Range HDL <40 mg/dL Low HDL Cholesterol HDL >or= 60 mg/dL High HDL Cholesterol Serum or plasma cholesterol in VLDL measurement (mass/volume)on 01-14-2022 Cholesterol in VLDL [Mass/Vol] 15 mg/dL 5-40 [facility] Work Phone: Serum or plasma low density lipoprotein (LDL) cholesterol measurement (mass/volume)on 01-14-2022 Cholesterol in LDL [Mass/Vol] 43 mg/dL 0-130 [facility] Work Phone: Thin prep Papanicolaou smear with manual screeningon 01-14-2022 Thin prep Papanicolaou smear with manual screening 15 U/L 15-37 [facility] Work Phone: Basophil percentageon 2021 Ammonia (P) [Moles/Vol] 23.0 umol/L 11-32 [facility] Work Phone: Bilirubin [Mass/Vol] 0.50 mg/dL 0.20-1.00 [facility] Work Phone: Comment on above: For patients on eltr ombopag therapy, use of Dimension [place] TBIL is not recommended. Chloride [Moles/Vol] 102 mmol/L 98-107 [facility] Work Phone: Glucose [Mass/Vol] 89 mg/dL 74-106 [facility] Work Phone: Potassium [Moles/Vol] 4.0 mmol/L 3.5-5.1 [facility] Work Phone: Protein [Mass/Vol] 7.2 g/dL 6.4-8.2 [facility] Work Phone: Sodium [Moles/Vol] 136 mmol/L 136-145 [facility] Work Phone: WBC (Bld) [#/Vol] 8.1 10*3/uL 4.4-11.0 [facility] Work Phone: Blood erythrocytes count (nu mber/volume)on 12-17-2021 RBC (Bld) [#/Vol] 4.52 10*6/uL 4.6-6.2 [facility] Work Phone: Blood hemoglobin measurement (mass/volume)on 12-17-2021 Hemoglobin (Bld) [Mass/Vol] 13.9 g/dL 13.0-16.5 [facility] Work Phone: Blood platelet mean volumeon 12-17-2021 Platelet mean volume (Bld) [Entitic vol] 10.0 fL 6.2-12.0 [facility] Work Phone: Determination of erythrocyte mean corpuscular volume (MCV)on 12-17-2021 MCV (RBC) [Entitic vol] 94.7 fL 80-94 [facility] Work Phone: Hematocrit Auto (Bld) [Volum e fraction]on 12-17-2021 Hematocrit (Bld) [Volume fraction] 42.8 % 40-54 [facility] Work Phone: Iron measurement (mass/mass) on 12-17-2021 Iron (Unsp spec) [Mass/Mass] 113 ug/dL 65-175 [facility] Work Phone: Laboratory - Chemistry and C hemistry - challengeon 12-17-2021 ALP [Catalytic activity/Vol] 88 U/L 45-117 [facility] Work Phone: ALT [Catalytic activity/Vol] 41 U/L 16-61 [facility] Work Phone: CO2 [Moles/Vol] 28.0 mmol/L 21.0-32.0 [facility] Work Phone: Cobalamin (Vitamin B12) [Mass/Vol] 543 pg/mL 211-911 [facility] Work Phone: Globulin (S) [Mass/Vol] 3.6 g/dL 2.2-4.2 [facility] Work Phone: Urea nitrogen/Creatinine [Mass ratio] 11.0 mg/mg 10-20 [facility] Work Phone: Laboratory - Hematology and Cell countson 12-17-2021 Erythrocyte distribution width (RBC) [Entitic vol] 52.6 fL 35.1-43.9 [facility] Work Phone: Erythrocyte distribution width (RBC) [Ratio] 15.1 % 11.6-14.6 [facility] Work Phone: MCH (RBC) [Entitic mass] 30.8 pg 27.0-32.0 [facility] Work Phone: MCHC Auto (RBC) [Mass/Vol]on 12-17-2021 MCHC (RBC) [Mass/Vol] 32.5 g/dL 32-36 [facility] Work Phone: No Panel Informationon 12-17 Estimated GFR (MDRD) Amer 96 mL/min >60 [facility] Work Phone: Comment on above: GFR Calc Estimated GFR (MDRD) Non-Af Amer 79 mL/min >60 [facility] Work Phone: Comment on above: Non- GFR Calc Platelets bldon 12-17-2021 Platelets (Bld) [#/Vol] 272 10*3/uL 150-450 [facility] Work Phone: Serum or plasma albumin sadi urement (mass/volume)on 12-17-2021 Albumin [Mass/Vol] 3.6 g/dL 3.2-5.0 [facility] Work Phone: Serum or plasma albumin/glob ulin mass ratioon 12-17-2021 Albumin/Globulin [Mass ratio] 1.0 {ratio} 0.9-2.4 [facility] Work Phone: Serum or plasma calcium sadi urement (mass/volume)on 12-17-2021 Calcium [Mass/Vol] 8.8 mg/dL 8.5-10.1 [facility] Work Phone: Serum or plasma creatinine m easurement (mass/volume)on 12-17-2021 Creatinine [Mass/Vol] 1.00 mg/dL 0.70-1.30 [facility] Work Phone: Comment on above: The validity of the calculated GFR & GFRAA in patients over 70 years has not been determined. Clinical correlation is essential. Serum or plasma ferritin simone surement (mass/volume)on 12-17-2021 Ferritin [Mass/Vol] 42 ng/mL 26-388 [facility] Work Phone: Serum or plasma folate measu rement (mass/volume)on 12-17-2021 Folate [Mass/Vol] 78.00 ng/mL 3.1-55.4 [facility] Work Phone: Serum or plasma lamotrigine measurement (mass/volume)on 12-17-2021 lamoTRIgine [Mass/Vol] 1.9 ug/mL 2.0-20.0 [facility] Work Phone: Comment on above: Detection Limit = 1. 0Performed at: [facility] [address] [id number] Director: Fernando Madison MD, Phone: [phone] Serum or plasma urea nitroge n measurement (mass/volume)on 12-17-2021 Urea nitrogen [Mass/Vol] 11 mg/dL 7-18 [facility] Work Phone: Thin prep Papanicolaou smear with manual screeningon 12-17-2021 Thin prep Papanicolaou smear with manual screening 27 U/L 15-37 [facility] Work Phone: Thin prep Papanicolaou smear with manual screening 6 5-15 [facility] Work Phone: ALLIED HEALTHon 11-06-2021 [facility] HNO ID: [id number] Author: RT Louisa(R) Service: Radiology Author Type: Technologist Type: Allied [...] PERIPHERAL IV DATA: Not applicable SIGNED BY: Nelia Pierre RT(R) November 06, 2021 1:59 PM Normal [facility] CNOVon 11-06-2021 CNOV Office Visit ([facility]) -- MIKARADHA Michelle ([id number]) 1955 M Date Time Provider Department 11/06/21 2:00 PM LINDA WINKLER During your visit today, we recorded the following information about you: Pulse Respiration Blood pressure Weight 68/minute 16/minute 118/64 60.3 kg Height 1.74 m Linda Winkler APRN.[employer] 11/06/2021 3:11 PM Signed HPI: Radha Brennan [...] for discharge one week after surgery with [facility] ? At his 1 week post hospital [place] follow up visit (walked in to this appointment, accompanied by his lady friend, from the parking garage all the way to the office. When he arrived to the office waiting room, he shares that he started experiencing sharp left sided chest pain 8/. He was brought back to the exam room for evaluation, and reported after 10 minutes or so of rest that it had subsided to a dull left pectoral ache 2/10. Denies SOB. Endorses chronic cough. Continues to smoke 1 PPD. Admits he has been walking around the [employer], brief shorter walks. Attempted 1/2 lap around the [employer] and experienced similar symptoms that subsided with [...] in general. Walking about half trip around [employer]- 150 ft, then rests and resumes walk. Tolerating this without any chest pain, palpitations, shortness of breath. Continues to smoke 1/2 PPD. Stopped flexeril after a couple doses, thinks it may be contributing to nightmares. Interval events: went to [facility] two weeks ago for left forearm and upper arm pain, tells me he was diagnosed with blood clots to left arm, but was advised no new treatments given that he is already on ASA and Plavix. No record available for review at this time. Continues to ambulate around [facility] without CP/palp/sob. Continues to smoke Radha Michelle [...] Take 1 (more content not included)... Normal [facility] XR CHEST 2V FRONTAL/LATon XR CHEST [...] adjacent infiltrates and/or atelectasis. No significant change. Design Analyst: ISAÍAS Transcribe Date/Time: Nov 09 2021 10:53A Dictated by : BUBBA PITTMAN MD This examination was interpreted and the report reviewed and electronically signed by: BUBBA PITTMAN MD on Nov 09 2021 10:54AM EST [id number] Normal [facility] Absolute lymphocyte counton 10-29-2021 Lymphocytes Auto (Unsp spec) [#/Vol] 3.43 10*3/uL 0.83-4.51 [facility] Work Phone: Basophil percentageon 2021 Basophils/100 WBC (Bld) 0.6 % 0-1 [facility] Work Phone: Chloride [Moles/Vol] 101 mmol/L 98-107 [facility] Work Phone: Eosinophils/100 WBC (Bld) 8.1 % 0-5 [facility] Work Phone: Glucose [Mass/Vol] 115 mg/dL 74-106 [facility] Work Phone: Comment on above: Fasting Glucose resu lt from 100 to 125 mg/dL suggests IMPAIRED HOMEOSTASIS per A.D.A. criteria. Neutrophils (Bld) [#/Vol] 5.3 10*3/uL 2.0-7.7 [facility] Work Phone: Neutrophils/100 WBC (Bld) 49.2 % 47-70 [facility] Work Phone: Potassium [Moles/Vol] 4.3 mmol/L 3.5-5.1 [facility] Work Phone: Sodium [Moles/Vol] 136 mmol/L 136-145 [facility] Work Phone: WBC (Bld) [#/Vol] 10.8 10*3/uL 4.4-11.0 [facility] Work Phone: Blood erythrocytes count (nu mber/volume)on 10-29-2021 RBC (Bld) [#/Vol] 3.73 10*6/uL 4.6-6.2 [facility] Work Phone: Blood hemoglobin measurement (mass/volume)on 10-29-2021 Hemoglobin (Bld) [Mass/Vol] 11.3 g/dL 13.0-16.5 [facility] Work Phone: Blood lymphocytes/100 leukoc yteson 10-29-2021 Lymphocytes/100 WBC (Bld) 31.8 % 19-41 [facility] Work Phone: Blood manual differential co mment interpretation (narrative result)on 10-29-2021 Manual differential comment Bari (Bld) [Interp] SCANNED [facility] Work Phone: Comment on above: AUTO DIFF OK Blood monocytes/100 leukocyt eson 10-29-2021 Monocytes/100 WBC (Bld) 10.0 % 0-10 [facility] Work Phone: Blood platelet mean volumeon 10-29-2021 Platelet mean volume (Bld) [Entitic vol] 9.3 fL 6.2-12.0 [facility] Work Phone: Determination of erythrocyte mean corpuscular volume (MCV)on 10-29-2021 MCV (RBC) [Entitic vol] 93.6 fL 80-94 [facility] Work Phone: Hematocrit Auto (Bld) [Volum e fraction]on 10-29-2021 Hematocrit (Bld) [Volume fraction] 34.9 % 40-54 [facility] Work Phone: Laboratory - Chemistry and C hemistry - challengeon 10-29-2021 CO2 [Moles/Vol] 31.0 mmol/L 21.0-32.0 [facility] Work Phone: Urea nitrogen/Creatinine [Mass ratio] 17.5 mg/mg 10-20 [facility] Work Phone: Laboratory - Hematology and Cell countson 10-29-2021 Erythrocyte distribution width (RBC) [Entitic vol] 48.3 fL 35.1-43.9 [facility] Work Phone: Erythrocyte distribution width (RBC) [Ratio] 14.1 % 11.6-14.6 [facility] Work Phone: Immature granulocytes/100 WBC (Bld) 0.300 % 0.0-0.9 [facility] Work Phone: Comment on above: IG% - Immature Granu locytes (promyelocytes, myelocytes and metamyelocytes) > 1% indicates that a LEFT SHIFT is Present. MCH (RBC) [Entitic mass] 30.3 pg 27.0-32.0 [facility] Work Phone: Nucleated RBC/100 WBC (Bld) [Ratio] 0 % 0-5 [facility] Work Phone: MCHC Auto (RBC) [Mass/Vol]on 10-29-2021 MCHC (RBC) [Mass/Vol] 32.4 g/dL 32-36 [facility] Work Phone: No Panel Informationon 10-29 Troponin I High Sensitivity 5 pg/mL 3.0-78.0 [facility] Work Phone: Comment on above: Please Note: New Renay t Units and Gender Specific Reference Ranges. For more information see Policy Stat Procedure [place] High Sensitivity Troponin (TNIH) and attachments. Estimated Creatinine Clearance Calc 68.98 ml/min [facility] Work Phone: Estimated GFR (MDRD) Amer 114 mL/min >60 [facility] Work Phone: Comment on above: GFR Calc Estimated GFR (MDRD) Non-Af Amer 95 mL/min >60 [facility] Work Phone: Comment on above: Non- GFR Calc Platelets bldon 10-29-2021 Platelets (Bld) [#/Vol] 472 10*3/uL 150-450 [facility] Work Phone: Serum or plasma calcium sadi urement (mass/volume)on 10-29-2021 Calcium [Mass/Vol] 9.0 mg/dL 8.5-10.1 [facility] Work Phone: Serum or plasma creatinine m easurement (mass/volume)on 10-29-2021 Creatinine [Mass/Vol] 0.86 mg/dL 0.70-1.30 [facility] Work Phone: Comment on above: The validity of the calculated GFR & GFRAA in patients over 70 years has not been determined. Clinical correlation is essential. Serum or plasma urea nitroge n measurement (mass/volume)on 10-29-2021 Urea nitrogen [Mass/Vol] 15 mg/dL 7-18 [facility] Work Phone: Thin prep Papanicolaou smear with manual screeningon 10-29-2021 Thin prep Papanicolaou smear with manual screening 4 5-15 [facility] Work Phone: CNPNon 10-27-2021 [facility] RADHA BR[facility] ([id number]) 1955 M Date Time Provider Department 10/27/21 SUDHEER WILLIS During your visit today, we recorded the following information about you: Sudheer Wilils RN 10/27/2021 7:41 AM Signed Linda Winkler; Patient has been discharged from skilled home health services as of 10/22/21. Nurse/teaching goals met. Thank you for allowing [facility] to serve your patient. 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*09/15/2021 CAD in salamatof artery [I25.10] 09/21/2021 Severe protein-calorie malnutrition (HCC) [E43] 09/22/2021 Nicotine use disorder, F17.2 [F17.200] 09/24/2021 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] 09/28/2021 Encounter Status:Closed by SUDHEER WILLIS on 10/27/21 [facility] Mike 10-22-2021 CNPN Telephone (AGTestt) -- RADHA BRENNAN ([id number]) 1955 M Date Time Provider Department 10/22/21 GREGORIO DOMINGUEZ AGLASHELL During your visit today, we recorded the following information about you: Warren Luciano 10/22/2021 9:30 AM Signed [facility] phone [phone] fax [phone]. 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*09/15/2021 CAD in salamatof artery [I25.10] 09/21/2021 Severe protein-calorie malnutrition (HCC) [E43] 09/22/2021 Nicotine use disorder, F17.2 [F17.200] 09/24/2021 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] 09/28/2021 Encounter Status:Closed by WARREN LUCIANO on 10/22/21 Normal [facility] Absolute lymphocyte counton 10-16-2021 Lymphocytes Auto (Unsp spec) [#/Vol] 3.90 10*3/uL 0.83-4.51 [facility] Work Phone: Basophil percentageon 2021 Basophils/100 WBC (Bld) 1.1 % 0-1 [facility] Work Phone: Chloride [Moles/Vol] 101 mmol/L 98-107 [facility] Work [facility]: Eosinophils/100 WBC (Bld) 12.8 % 0-5 [facility] Work Phone: Glucose [Mass/Vol] 80 mg/dL 74-106 [facility] Work Phone: Neutrophils (Bld) [#/Vol] 5.7 10*3/uL 2.0-7.7 [facility] Work Phone: Neutrophils/100 WBC (Bld) 46.3 % 47-70 [facility] Work Phone: Potassium [Moles/Vol] 4.2 mmol/L 3.5-5.1 [facility] Work Phone: Sodium [Moles/Vol] 135 mmol/L 136-145 [facility] Work Phone: WBC (Bld) [#/Vol] 12.2 10*3/uL 4.4-11.0 [facility] Work Phone: Blood erythrocytes count (nu mber/volume)on 10-16-2021 RBC (Bld) [#/Vol] 3.34 10*6/uL 4.6-6.2 [facility] Work Phone: Blood hemoglobin measurement (mass/volume)on 10-16-2021 Hemoglobin (Bld) [Mass/Vol] 10.5 g/dL 13.0-16.5 [facility] Work Phone: Blood lymphocytes/100 leukoc yteson 10-16-2021 Lymphocytes/100 WBC (Bld) 32.0 % 19-41 [facility] Work Phone: Blood monocytes/100 leukocyt eson 10-16-2021 Monocytes/100 WBC (Bld) 7.5 % 0-10 [facility] Work Phone: Blood platelet mean volumeon 10-16-2021 Platelet mean volume (Bld) [Entitic vol] 9.0 fL 6.2-12.0 [facility] Work Phone: CNOVon 10-16-2021 CNOV Office Visit (CR LUA) -- RADHA BRENNAN ([id number]) 1955 M Date Time Provider Department 7/15/22 2:00 PM LINDA WINKLER During your visit today, we recorded the following information about you: Pulse Respiration Blood pressure Weight 72/minute 16/minute 122/64 61.1 kg Height 1.74 m Linda Winkler APRN.CNP 10/17/2021 12:33 PM Signed HPI: Radha Brennan [...] for discharge one week after surgery with [facility] At his 1 week [...] Admits he has been walking around the [facility], brief shorter walks. Attempted 1/2 lap around the [facility] and experienced similar symptoms that subsided with [...] in general. Walking about half trip around [facility]- 150 ft, then rests and resumes [...] 1 tablet (more content not included)... Normal [facility] Determination of erythrocyte mean corpuscular volume (MCV)on 10-16-2021 MCV (RBC) [Entitic vol] 97.3 fL 80-94 [facility] Work Phone: Hematocrit Auto (Bld) [Volum e fraction]on 10-16-2021 Hematocrit (Bld) [Volume fraction] 32.5 % 40-54 [facility] Work Phone: Laboratory - Chemistry and C hemistry - challengeon 10-16-2021 CO2 [Moles/Vol] 29.0 mmol/L 21.0-32.0 [facility] Work Phone: Magnesium [Mass/Vol] 2.0 mg/dL 1.6-2.6 [facility] Work Phone: [phone] Urea nitrogen/Creatinine [Mass ratio] 20.3 mg/mg 10-20 [facility] Work Phone: Laboratory - Hematology and Cell countson 10-16-2021 Erythrocyte distribution width (RBC) [Entitic vol] 49.2 fL 35.1-43.9 [facility] Work Phone: Erythrocyte distribution width (RBC) [Ratio] 13.7 % 11.6-14.6 [facility] Work Phone: Immature granulocytes/100 WBC (Bld) 0.300 % 0.0-0.9 [facility] Work Phone: Comment on above: IG% - Immature Granu locytes (promyelocytes, myelocytes and metamyelocytes) > 1% indicates that a LEFT SHIFT is Present. MCH (RBC) [Entitic mass] 31.4 pg 27.0-32.0 [facility] Work Phone: Nucleated RBC/100 WBC (Bld) [Ratio] 0 % 0-5 [facility] Work Phone: MCHC Auto (RBC) [Mass/Vol]on 10-16-2021 MCHC (RBC) [Mass/Vol] 32.3 g/dL 32-36 [facility] Work Phone: No Panel Informationon 10-16 Estimated Creatinine Clearance Calc 72.27 ml/min [facility] Work Phone: Estimated GFR (MDRD) Amer 118 mL/min >60 [facility] Work Phone: Comment on above: GFR Calc Estimated GFR (MDRD) Non-Af Amer 97 mL/min >60 [facility] Work Phone: Comment on above: Non- GFR Calc Platelets bldon 10-16-2021 Platelets (Bld) [#/Vol] 517 10*3/uL 150-450 [facility] Work Phone: Serum or plasma calcium sadi urement (mass/volume)on 10-16-2021 Calcium [Mass/Vol] 8.8 mg/dL 8.5-10.1 [facility] Work Phone: Serum or plasma creatinine m easurement (mass/volume)on 10-16-2021 Creatinine [Mass/Vol] 0.84 mg/dL 0.70-1.30 [facility] Work Phone: Comment on above: The validity of the calculated GFR & GFRAA in patients over 70 years has not been determined. Clinical correlation is essential. Serum or plasma urea nitroge n measurement (mass/volume)on 10-16-2021 Urea nitrogen [Mass/Vol] 17 mg/dL 7-18 [facility] Work Phone: Thin prep Papanicolaou smear with manual screeningon 10-16-2021 Thin prep Papanicolaou smear with manual screening 5 5-15 [facility] Work Phone: CNPNon 10-15-2021 CNPN Telephone (HCSIND) -- RADHA BRENNAN ([id number]) 1955 M Date Time Provider Department 10/15/21 [...] following this home health pt. Linda Winkler APRN.FAST [employer] CREW MEMBER 10/15/2021 12:20 PM Signed Jai Hahn, Yes I agree with flexeril advice. I believe Tylenol Arthritis is 650 mg, so 2 tabs would be too much at one time. He can do 1 tablet every 4 hours if he prefers. Thanks for all your care of him! 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] 09/28/2021 Encounter Status:Closed by LINDA WINKLER CNP on 10/15/21 [facility] CNOVon 10-08-2021 CNOV Office Visit (CR LUA) -- BRENNANRADHA MULLINS Michelle ([id number]) 1955 M Date Time Provider Department 10/08/21 11:30 AM LINDA WINKLER During your visit today, we recorded the following information about you: Linda Winkler APRN.CNP 10/10/2021 9:54 AM Signed HPI: Radha Michelle Brennan is a 66 year old male [...] PROBLEMS/DIAGNOSIS: Principal Problem: Coronary artery disease involving salamatof coronary artery of salamatof heart without angina pectoris Active Problems: S/P [...] Admits he has been walking around the [employer], brief shorter walks. Attempted 1/2 lap around the [employer] and experienced similar symptoms that subsided with [...] available. His friend reports BPs obtained by [facility] have been around 115/x, [...] as directed (more content not included)... Normal [facility] Mike 10-06-2021 [facility] Telephone (HCSIND) -- RADHA BRENNAN ([id number]) 1955 M Date Time Provider Department 10/06/21 BJORN CALVILLO During your visit today, we recorded the following information about you: Bjorn Calvillo RN 10/06/2021 3:55 PM Signed Good afternoon, [...] juice. Please advise, thank you! Linda Winkler APRN.ODALIS 10/06/2021 4:02 PM Signed Yes absolutely add miralax. Thanks! 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/15/2021 CAD in salamatof artery [I25.10] 09/21/2021 Severe protein-calorie malnutrition (HCC) [E43] 09/22/2021 Nicotine use disorder, F17.2 [F17.200] 09/24/2021 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] 09/28/2021 Encounter Status:Closed by LINDA WINKLER CNP on 10/06/21 [facility] Mike 09-30-2021 [facility] Telephone (HCSIND) -- BRENNANRADHA ([id number]) 1955 M Date Time Provider Department 09/30/21 [...] Mixed hyperlipidemia [E78.2] 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*09/15/2021 CAD in salamatof artery [I25.10] 09/21/2021 Severe protein-calorie malnutrition (HCC) [E43] 09/22/2021 Nicotine use disorder, F17.2 [F17.200] 09/24/2021 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] 09/28/2021 Encounter Status:Closed by BJORN CALVILLO on 09/30/21 [facility] CNDSon 09-28-2021 CN HNO ID: [id number] Author: Tami Luna PA-C Service: Cardiovascular Surgery Author Type: Physician Medical Typist Type: Discharge Summary Filed: 09/28/2021 11:57 AM [...] MD Primary Care Provider: Clement Swanson MD, MD My Medical Team Members: Treatment Team: Attending Provider: Gregorio Dominguze MD MY CONDITION AT DISCHARGE: Stable REASON [...] PROBLEMS/DIAGNOSIS: Principal Problem: Coronary artery disease involving salamatof coronary artery of salamatof heart without angina pectoris Active Problems: S/P [...] medication (see prescription) You should use an wpyi-kwo-uxmyhqr stool softener (Docusate sodium) and/or a fiber [...] or c (more content not included)... 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 Normal [facility] NURSING PROGon 09-28-2021 NURSING PROG HNO ID: [id number] Author: Kathryn Juan RN Service: Nursing Author Type: Registered Nurse Type: Nursing Progress Note Filed: 09/28/2021 5:49 AM Note Text: RN attempted morning lab draw. Patient is requesting to not be drawn for morning labs (due to his discomfort with needles.) LIP notified. Kathryn Juan RN Normal [facility] XR CHEST 1V FRONTALon 2021 XR [...] pigtail coiled over left apex laterally. Overlying crab catcher leads. Intact median sternotomy wires. Lungs and pleura: No residual left-sided pneumothorax. Trace left-sided pleural effusion with probable atelectasis left base medially. Right lung is clear. Cardiomediastinal silhouette: Stable. Other: No significant additional findings. IMPRESSION: Left-sided pigtail chest tube with interval resolution of left pneumothorax. Otherwise stable findings. Design Analyst: PSCB Transcribe Date/Time: Sep 28 2021 8:38A Dictated by : DAPHNE WILLS MD This examination was interpreted and the report reviewed and electronically signed by: DAPHNE WILLS MD on Sep 28 2021 8:40AM EST [id number] [facility] ALLIED HEALTHon 09-27-2021 ALLIED HEALTH HNO ID: [id number] Author: RT Janice(R) Service: Radiology Author Type: Technologist Type: Allied [...] RT Janice(R) September 27, 2021 6:32 AM [facility] BRIEF OP NOTon 09-27-2021 BRIEF OP NOT HNO ID: [id number] Author: Yarely Hobbs MD, MD Service: Radiology Author Type: Physician Type: Brief Op Note Filed: 09/27/2021 12:01 PM Note Text: INTERVENTIONAL RADIOLOGY POST PROCEDURE NOTE DATE: 09/27/21 NAME: Radha Brennan LOG ID: [id number] Pre-Procedure Diagnosis: Left pneumothorax Post Procedure Diagnosis: Same. Meat Carver: Dr. Yarely Hobbs Procedure: Image guided left chest tube placement Anesthesia: Procedural Sedation Findings: Successful placement of 10 Cameroonian left sided chest tube with aspiration of left pneumothorax. Estimated Blood Loss: Minimal (Less Than 25 mL). Specimen: None Complications: None Full report with procedural details to follow and will become available under Imaging Reports. Please contact for any questions or concerns. SIGNATURE: Yarely Hobbs MD PATIENT NAME: Radha Brennan DATE: September 27, 2021 TIME: 12:00 PM PAGER/CONTACT #: Normal [facility] Basic metabolic 2000 panelon 09-27-2021 Anion gap [Moles/Vol] 8 mmol/L Low 9-18 [facility] Comment on above: Order Comment: Speci men Type: BLOOD SPECIMENOrdering Facility: [facility] Address: [address] [place] [address] Performed By: #### 2 4321-2 ####[facility]ORY[facility]IA [id number] [place] [address] [place] Calcium [Mass/Vol] 8.8 mg/dL Normal 8.5-10.2 [facility] Comment on above: Order Comment: Speci men Type: BLOOD SPECIMENOrdering Facility: [facility] Address: [address] [place] [address] Performed By: #### 2 4321-2 ####[facility]ATORYCLIA [id number] [place] [address] [place] Chloride [Moles/Vol] 101 mmol/L Normal 97-105 [facility] Comment on above: Order Comment: Speci men Type: BLOOD SPECIMENOrdering Facility: [facility] Address: [address] [place] [address] Performed By: #### 2 4321-2 ####[facility]ORYCLIA [id number] [place] [address] [place] CO2 [Moles/Vol] 26 mmol/L Normal 22-30 [facility] Comment on above: Order Comment: Speci men Type: BLOOD SPECIMENOrdering Facility: [facility] Address: [address] [address] Performed By: #### 2 4321-2 ####[facility]ITALCLIA [id number] [address] Creatinine [Mass/Vol] 0.86 mg/dL Normal 0.73-1.22 [facility] Comment on above: Order Comment: Speci men Type: BLOOD SPECIMENOrdering Facility: [facility] Address: [address] [place] [address] Performed By: #### 2 4321-2 ####[facility]ORYCLIA [id number] [address] ESTIMATED GLOMERULAR FILTRATION RATE 95 mL/min/1.73m??? Normal >=60 [facility] Comment on above: Order Comment: Speci men Type: BLOOD SPECIMENOrdering Facility: [facility] Address: [address] [place] [address] Result Comment: Teena mated Glomerular Filtration Rate [...] actual GFR. Performed By: #### 2 4321-2 ####[facility]ORYCLIA [id number] [address] Glucose [Mass/Vol] 117 mg/dL High 74-99 [facility] Comment on above: Order Comment: Speci men Type: BLOOD SPECIMENOrdering Facility: [facility] Address: [address] [place] [address] Result Comment: The [place] Diabetes Association (ADA) provides guidance for cutoff [...] Standards of Medical Care in Diabetes 2016, [place] [employer]. Diabetes Care. 2016.39(Suppl 1). Performed By: #### 2 4321-2 ####[facility]ORYCLIA [id number] [address] OF [facility] Potassium [Moles/Vol] 3.9 mmol/L Normal 3.7-5.1 [facility] Comment on above: Order Comment: Speci men Type: BLOOD SPECIMENOrdering Facility: [facility] Address: [address] [place] [address] Performed By: #### 2 4321-2 ####[facility]ORYCLIA [id number] [address] Sodium [Moles/Vol] 135 mmol/L Low 136-144 [facility] Comment on above: Order Comment: Speci men Type: BLOOD SPECIMENOrdering Facility: [facility] Address: [address] [place] [address] Performed By: #### 2 4321-2 ####[facility]ATORYCLIA [id number] [address] Urea nitrogen [Mass/Vol] 17 mg/dL Normal 9-24 [facility] Comment on above: Order Comment: Speci men Type: BLOOD SPECIMENOrdering Facility: [facility] Address: [address] [place] [address] Performed By: #### 2 4321-2 ####[facility]ORATORYCLIA [id number] [address] [place] HISTORY PHYSICALon HISTORY PHYSICAL HNO ID: [id number] Author: Yarely Hobbs MD, MD Service: Radiology [...] 27, 2021 TIME: 11:30 AM PAGER: Normal [facility] IR CHEST TUBE INSERTon 09-27 IR CHEST TUBE INSERT * * *Final Report* * * DATE OF EXAM: Sep 27 2021 12:28PM [facility] 7804 - IR CHEST TUBE [...] the apex. Following serial dilation, a 10 Cameroonian percutaneous drain was then placed with cope [...] Moderate size left pneumothorax. Successful placement 10 Cameroonian left-sided chest tube with cope performed at the left lung apex with aspiration of the left-sided pneumothorax. IMPRESSION: Successful placement of a 10 Cameroonian percutaneous drain into left pleural space with aspiration of left-sided pneumothorax, as described. Design Analyst: [facility] Transcribe Date/Time: Sep 27 2021 3:18P Dictated by : YARELY HOBBS MD This examination was interpreted and the report reviewed and electronically signed by: YARELY HOBBS MD on Sep 27 2021 3:20PM EST [id number] Normal [facility] XR CHEST 1V FRONTALon 2021 XR [...] No partial right-sided pneumothorax on current examination. Design Analyst: [facility] Transcribe Date/Time: Sep 27 2021 3:43P Dictated by : YARELY HOBBS MD This examination was interpreted and the report reviewed and electronically signed by: YARELY HOBBS MD on Sep 27 2021 3:45PM EST [id number] Normal [facility] ALLIED HEALTHon 09-26-2021 ALLIED HEALTH HNO ID: [id number] Author: RT Martha(R) Service: Radiology Author Type: [...] Martha(R) September 26, 2021 7:46 AM Normal [facility] Basic metabolic 2000 panelon 09-26-2021 Anion gap [Moles/Vol] 10 mmol/L Normal 9-18 [facility] Comment on above: Order Comment: Speci men Type: BLOOD SPECIMENOrdering Facility: [facility] Address: [address] [place] [address] Performed By: #### 2 4321-2 ####[facility]ATORYCLIA [id number] [place] [address] [place] Calcium [Mass/Vol] 8.5 mg/dL Normal 8.5-10.2 [facility] Comment on above: Order Comment: Speci men Type: BLOOD SPECIMENOrdering Facility: [facility] Address: [address] [place] [address] Performed By: #### 2 4321-2 ####[facility]ORATORYCLIA [id number] [place] [address] [place] Chloride [Moles/Vol] 102 mmol/L Normal 97-105 [facility] Comment on above: Order Comment: Speci men Type: BLOOD SPECIMENOrdering Facility: [facility] Address: [address] [place] [address] Performed By: #### 2 4321-2 ####[facility]ATORYCLIA [id number] [place] [address] [place] CO2 [Moles/Vol] 26 mmol/L Normal 22-30 [facility] Comment on above: Order Comment: Speci men Type: BLOOD SPECIMENOrdering Facility: [facility] Address: [address] [place] [address] Performed By: #### 2 4321-2 ####[facility]PITALCLIA [id number] [address] STATES OF [facility] Creatinine [Mass/Vol] 0.85 mg/dL Normal 0.73-1.22 [facility] Comment on above: Order Comment: Speci men Type: BLOOD SPECIMENOrdering Facility: [facility] Address: [address] [place] [address] Performed By: #### 2 4321-2 ####[facility]ATORYCLIA [id number] [address] ESTIMATED GLOMERULAR FILTRATION RATE 95 mL/min/1.73m??? Normal >=60 [facility] Comment on above: Order Comment: Speci men Type: BLOOD SPECIMENOrdering Facility: [facility] Address: [address] [place] [address] Result Comment: Teena mated Glomerular Filtration Rate [...] actual GFR. Performed By: #### 2 4321-2 ####[facility]ORATORYCLIA [id number] [place] [address] [place] Glucose [Mass/Vol] 119 mg/dL High 74-99 [facility] Comment on above: Order Comment: Speci men Type: BLOOD SPECIMENOrdering Facility: [facility] Address: [address] [place] [address] Result Comment: The [place] [employer] (ADA) provides guidance for cutoff [...] Standards of Medical Care in Diabetes 2016, [place] [employer]. Diabetes Care. 2016.39(Suppl 1). Performed By: #### 2 4321-2 ####[facility]ATORYCLIA [id number] [place] [address] [place] Potassium [Moles/Vol] 4.0 mmol/L Normal 3.7-5.1 [facility] Comment on above: Order Comment: Anam perez Type: BLOOD SPECIMENOrdering Facility: [facility] Address: [address] [place] [address] Performed By: #### 2 4321-2 ####[facility]ORATORYCLIA [id number] [place] [address] [place] Sodium [Moles/Vol] 138 mmol/L Normal 136-144 [facility] Comment on above: Order Comment: Dereki men Type: BLOOD SPECIMENOrdering Facility: [facility] Address: [address] [place] [address] Performed By: #### 2 4321-2 ####[facility]ATORYCLIA [id number] [place] [address] [place] Urea nitrogen [Mass/Vol] 11 mg/dL Normal 9-24 [facility] Comment on above: Order Comment: Speci men Type: BLOOD SPECIMENOrdering Facility: [facility] Address: [address] [place] [address] Performed By: #### 2 4321-2 ####[facility]ATORYCLIA [id number] [address] CBC panel Auto (Bld)on 09-26 Erythrocyte distribution width (RBC) [Ratio] 13.7 % Normal 11.5-15.0 [facility] Comment on above: Order Comment: Speci men Type: BLOOD SPECIMENOrdering Facility: [facility] Address: [address] [place] [address] Performed By: #### 5 8410-2 ####[facility]ATORYCLIA [id number] [address] Hematocrit (Bld) [Volume fraction] 26.4 % Low 39.0-51.0 [facility] Comment on above: Order Comment: Speci men Type: BLOOD SPECIMENOrdering Facility: [facility] Address: [address] [place] [address] Performed By: #### 5 8410-2 ####[facility]ORATORYCLIA [id number] [address] Hemoglobin (Bld) [Mass/Vol] 8.9 g/dL Low 13.0-17.0 [facility] Comment on above: Order Comment: Speci men Type: BLOOD SPECIMENOrdering Facility: [facility] Address: [address] [place] [address] Performed By: #### 5 8410-2 ####[facility]ORATORYCLIA [id number] [address] [facility] MCH (RBC) [Entitic mass] 32.4 pg Normal 26.0-34.0 [facility] Comment on above: Order Comment: Speci men Type: BLOOD SPECIMENOrdering Facility: [facility] Address: [address] [place] [address] Performed By: #### 5 8410-2 ####[facility]ORATORYCLIA [id number] [address] [place] [facility] MCHC (RBC) [Mass/Vol] 33.7 g/dL Normal 30.5-36.0 [facility] Comment on above: Order Comment: Speci men Type: BLOOD SPECIMENOrdering Facility: [facility] Address: [address] [place] [address] Performed By: #### 5 8410-2 ####[facility]ATORYCLIA [id number] [address] MCV (RBC) [Entitic vol] 96.0 fL Normal 80.0-100.0 [facility] Comment on above: Order Comment: Speci men Type: BLOOD SPECIMENOrdering Facility: [facility] Address: [address] [place] [address] Performed By: #### 5 8410-2 ####[facility]ATORYCLIA [id number] [address] [place] [facility] Nucleated RBC (Bld) [#/Vol] 10*3/uL Normal <0.01 [facility] Comment on above: Order Comment: Speci men Type: BLOOD SPECIMENOrdering Facility: [facility] Address: [address] [place] [address] Performed By: #### 5 8410-2 ####[facility]ATORYCLIA [id number] [address] [place] Platelet mean volume (Bld) [Entitic vol] 9.8 fL Normal 9.0-12.7 [facility] Comment on above: Order Comment: Speci men Type: BLOOD SPECIMENOrdering Facility: [facility] Address: [address] [place] [address] Performed By: #### 5 8410-2 ####[facility]ATORYCLIA [id number] [address] OF [place] Platelets (Bld) [#/Vol] 260 10*3/uL Normal 150-400 [facility] Comment on above: Order Comment: Speci men Type: BLOOD SPECIMENOrdering Facility: [facility] Address: [address] [place], [place] [address] Performed By: #### 5 8410-2 ####[facility]ORATORYCLIA [id number] [address] OF [facility] RBC (Bld) [#/Vol] 2.75 10*6/uL Low 4.20-6.00 [facility] Comment on above: Order Comment: Speci men Type: BLOOD SPECIMENOrdering Facility: [facility] Address: [address] [place] [address] Performed By: #### 5 8410-2 ####[facility]ATORYCLIA [id number] [address] WBC (Bld) [#/Vol] 11.28 10*3/uL High 3.70-11.00 [facility] Comment on above: Order Comment: Speci men Type: BLOOD SPECIMENOrdering Facility: [facility] Address: [address] [place] [address] Performed By: #### 5 8410-2 ####[facility]ATORYCLIA [id number] [address] XR CHEST 2V FRONTAL/LATon XR CHEST [...] left hydropneumothorax or small right apical pneumothorax. Design Analyst: [facility] Transcribe Date/Time: Sep 27 2021 3:41P Dictated by : YARELY HOBBS MD This examination was interpreted and the report reviewed and electronically signed by: YARELY HOBBS MD on Sep 27 2021 3:43PM EST [id number] [facility] HNO ID: [id number] Author: RT Karson(R) Service: Radiology Author Type: Technologist Type: [facility] Filed: 09/25/2021 2:20 PM Note Text: [...] PERIPHERAL IV DATA: Not applicable SIGNED BY: Kojo Manzanares RT(R) September 25, 2021 2:20 PM Normal [facility] HNO ID: [id number] Author: Alvin Singleton RT(R) Service: Radiology Author Type: Technologist Type: [facility] Filed: 09/25/2021 7:37 AM Note Text: [...] Jane(R) September 25, 2021 7:36 AM Normal [facility] Basic metabolic 2000 panelon 09-25-2021 Anion gap [Moles/Vol] 6 mmol/L Low 9-18 [facility] Comment on above: Order Comment: Speci men Type: BLOOD SPECIMENOrdering Facility: [facility] Address: [address] [place] [address] Performed By: #### 2 4321-2 ####[facility]ATORYCLIA [id number] [place] [address] [place] Calcium [Mass/Vol] 7.9 mg/dL Low 8.5-10.2 [facility] Comment on above: Order Comment: Speci men Type: BLOOD SPECIMENOrdering Facility: [facility] Address: [address] [place] [address] Performed By: #### 2 4321-2 ####[facility]ATORYCLIA [id number] [place] [address] [place] Chloride [Moles/Vol] 103 mmol/L Normal 97-105 [facility] Comment on above: Order Comment: Speci men Type: BLOOD SPECIMENOrdering Facility: [facility] Address: [address] [place] [address] Performed By: #### 2 4321-2 ####[facility]ATORYCLIA [id number] [place] [address] [place] CO2 [Moles/Vol] 29 mmol/L Normal 22-30 [facility] Comment on above: Order Comment: Speci men Type: BLOOD SPECIMENOrdering Facility: [facility] Address: [address] [place] [address] Performed By: #### 2 4321-2 ####[facility]ORATORYCLIA [id number] [address] STATES OF [facility] Creatinine [Mass/Vol] 0.86 mg/dL Normal 0.73-1.22 [facility] Comment on above: Order Comment: Anam perez Type: BLOOD SPECIMENOrdering Facility: [facility] Address: [address] [address] Performed By: #### 2 4321-2 ####[facility]ORATORYCLIA [id number] [address] OF [facility] ESTIMATED GLOMERULAR FILTRATION RATE 95 mL/min/1.73m??? Normal >=60 [facility] Comment on above: Order Comment: Anam chris Type: BLOOD SPECIMENOrdering Facility: [facility] Address: [address] [place] [address] Result Comment: Teena mated Glomerular Filtration Rate [...] actual GFR. Performed By: #### 2 4321-2 ####[facility]ORATORYCLIA [id number] [address] STATES OF [facility] Glucose [Mass/Vol] 109 mg/dL High 74-99 [facility] Comment on above: Order Comment: Anam chris Type: BLOOD SPECIMENOrdering Facility: [facility] Address: [address] [address] Result Comment: The [place] Diabetes [employer] (ADA) provides guidance for cutoff [...] Standards of Medical Care in Diabetes 2016, [place] [employer]. Diabetes Care. 2016.39(Suppl 1). Performed By: #### 2 4321-2 ####[facility]ATORYCLIA [id number] [address] STATES OF [facility] Potassium [Moles/Vol] 4.1 mmol/L Normal 3.7-5.1 [facility] Comment on above: Order Comment: Speci men Type: BLOOD SPECIMENOrdering Facility: [facility] Address: [address] [place] [address] Performed By: #### 2 4321-2 ####[facility]ATORYCLIA [id number] [address] OF [facility] Sodium [Moles/Vol] 138 mmol/L Normal 136-144 [facility] Comment on above: Order Comment: Speci men Type: BLOOD SPECIMENOrdering Facility: [facility] Address: [address] [place] [address] Performed By: #### 2 4321-2 ####[facility]ATORYCLIA [id number] [address] STATES OF [facility] Urea nitrogen [Mass/Vol] 10 mg/dL Normal 9-24 [facility] Comment on above: Order Comment: Speci men Type: BLOOD SPECIMENOrdering Facility: [facility] Address: [address] [place] [address] Performed By: #### 2 4321-2 ####[facility]ORATORYCLIA [id number] [address] OF [facility] CASE MANAGEMon 09-25-2021 CASE MANAGEM HNO ID: [id number] Author: SISI Charles Service: Social Work Author Type: School Psychology Specialist Type: Care Mgt Progress Note Filed: 09/25/2021 [...] since he is post surgery.Will follow. [facility] has accepted whenever he is discharged. SIGNATURE: SISI Charles PATIENT NAME: Radha Brennan DATE: September 25, 2021 TIME: 10:31 AM PAGER/CONTACT #: [phone] Normal [facility] CBC panel Auto (Bld)on 09-25 Erythrocyte distribution width (RBC) [Ratio] 13.8 % Normal 11.5-15.0 [facility] Comment on above: Order Comment: Speci men Type: BLOOD SPECIMENOrdering Facility: [facility] Address: [address] [place] [address] Performed By: #### 5 8410-2 ####[facility]ORATORYCLIA [id number] [address] [place] Hematocrit (Bld) [Volume fraction] 23.0 % Low 39.0-51.0 [facility] Comment on above: Order Comment: Speci men Type: BLOOD SPECIMENOrdering Facility: [facility] Address: [address] [place] [address] Performed By: #### 5 8410-2 ####[facility]ORATORYCLIA [id number] [place] [address] [place] Hemoglobin (Bld) [Mass/Vol] 7.7 g/dL Low 13.0-17.0 [facility] Comment on above: Order Comment: Speci men Type: BLOOD SPECIMENOrdering Facility: [facility] Address: [address] [address] Performed By: #### 5 8410-2 ####[facility]ORATORYCLIA [id number] [address] [place] MCH (RBC) [Entitic mass] 33.0 pg Normal 26.0-34.0 [facility] Comment on above: Order Comment: Speci men Type: BLOOD SPECIMENOrdering Facility: [facility] Address: [address] [place] [address] Performed By: #### 5 8410-2 ####[facility]ORATORYCLIA [id number] [address] [facility] MCHC (RBC) [Mass/Vol] 33.5 g/dL Normal 30.5-36.0 [facility] Comment on above: Order Comment: Speci men Type: BLOOD SPECIMENOrdering Facility: [facility] Address: [address] [place] [address] Performed By: #### 5 8410-2 ####[facility]ATORYCLIA [id number] [address] [place] MCV (RBC) [Entitic vol] 98.7 fL Normal 80.0-100.0 [facility] Comment on above: Order Comment: Speci men Type: BLOOD SPECIMENOrdering Facility: [facility] Address: [address] [place] [address] Performed By: #### 5 8410-2 ####[facility]ORATORYCLIA [id number] [address] STATES OF [facility] Nucleated RBC (Bld) [#/Vol] 10*3/uL Normal <0.01 [facility] Comment on above: Order Comment: Speci men Type: BLOOD SPECIMENOrdering Facility: [facility] Address: [address] [place] [address] Performed By: #### 5 8410-2 ####[facility]ATORYCLIA [id number] [address] [place] Platelet mean volume (Bld) [Entitic vol] 10.4 fL Normal 9.0-12.7 [facility] Comment on above: Order Comment: Speci men Type: BLOOD SPECIMENOrdering Facility: [facility] Address: [address] [place] [address] Performed By: #### 5 8410-2 ####[facility]ORATORYCLIA [id number] [address] [place] Platelets (Bld) [#/Vol] 213 10*3/uL Normal 150-400 [facility] Comment on above: Order Comment: Speci men Type: BLOOD SPECIMENOrdering Facility: [facility] Address: [address] [place] [address] Performed By: #### 5 8410-2 ####[facility]ATORYCLIA [id number] [address] RBC (Bld) [#/Vol] 2.33 10*6/uL Low 4.20-6.00 [facility] Comment on above: Order Comment: Speci men Type: BLOOD SPECIMENOrdering Facility: [facility] Address: [address] [place] [address] Performed By: #### 5 8410-2 ####[facility]ATORYCLIA [id number] [address] WBC (Bld) [#/Vol] 10.05 10*3/uL Normal 3.70-11.00 [facility] Comment on above: Order Comment: Speci men Type: BLOOD SPECIMENOrdering Facility: [facility] Address: [address] [place] [address] Performed By: #### 5 8410-2 ####[facility]ORATORYCLIA [id number] [address] NURSING PROGon 09-25-2021 NURSING PROG HNO ID: [id number] Author: Steve Kingston RN Service: Nursing Author Type: Registered Nurse Type: Nursing Progress Note Filed: 09/25/2021 4:47 PM Note Text: -- Summary: Transfer to 4200 -- Pt arrived via wc with a staff member. Telemetry unit applied. Pt is A AND O x 4. Pt was oriented to 4200, tv remote, phone, call light. Bed lowest position with SR up x 2. Will monitor cardiac rhythm and safety. Normal [facility] NUTRITIONon 09-25-2021 NUTRITION HNO ID: [id number] Author: Frank Fisher RD Service: Nutrition Therapy Author Type: Registered Dietitian Type: Nutrition Filed: 09/25/2021 1:38 PM Note Text: NUTRITION THERAPY PROGRESS NOTE SERVICE DATE: 09/25/2021 SERVICE TIME: 1150 Nutrition Assessment: Recommended Malnutrition Diagnosis: Severe Protein-Calorie Malnutrition (09/22/21 0802 : Lidia Puentes RD) Estimated kilocalorie needs: 8044-0642 Calorie Calculation Method: 25-30 kcals/kg Estimated protein [...] History: LOS day 4, last reviewed by RD on 09/22. POD#4 CABG x 3 with [...] September 25, 2021 TIME: 10:12 AM Normal [facility] XR CHEST 1V FRONTALon 2021 XR [...] 45. RESULT: Lines, tubes, and devices: Overlying crab catcher leads. Intact median sternotomy wires. Previously noted [...] minimally larger. Stable trace right apical pneumothorax. Design Analyst: ISAÍAS Transcribe Date/Time: Sep 25 2021 2:33P Dictated by : DAPHNE WILLS MD This examination was interpreted and the report reviewed and electronically signed by: DAPHNE WILLS MD on Sep 25 2021 2:38PM EST [id number] Normal [facility] XR CHEST 2V FRONTAL/LATon XR CHEST [...] on 09/25/2021 8:17 AM via verbal communication. Design Analyst: ISAÍAS Transcribe Date/Time: Sep 25 2021 8:10A Dictated by : KHALIDA ARREDONDO MD This examination was interpreted and the report reviewed and electronically signed by: KHALIDA ARREDONDO MD on Sep 25 2021 8:18AM EST [id number] Normal [facility] ALLIED HEALTHon 09-24-2021 ALLIED HEALTH HNO ID: [id number] Author: RT Octavio(R) Service: Radiology Author Type: [...] PERIPHERAL IV DATA: Not applicable SIGNED BY: Sara Abbott RT(R) September 24, 2021 4:49 AM Normal [facility] Basic metabolic 2000 panelon 09-24-2021 Anion gap [Moles/Vol] 5 mmol/L Low 9-18 [facility] Comment on above: Order Comment: Speci men Type: BLOOD SPECIMENOrdering Facility: [facility] Address: [address] [place] [address] Performed By: #### 2 4321-2 ####[facility]ORATORYCLIA [id number] [place] [address] [place] Calcium [Mass/Vol] 7.8 mg/dL Low 8.5-10.2 [facility] Comment on above: Order Comment: Speci men Type: BLOOD SPECIMENOrdering Facility: [facility] Address: [address] [place] [address] Performed By: #### 2 4321-2 ####[facility]ORATORYCLIA [id number] [place] [address] [place] Chloride [Moles/Vol] 103 mmol/L Normal 97-105 [facility] Comment on above: Order Comment: Speci men Type: BLOOD SPECIMENOrdering Facility: [facility] Address: [address] [place] [address] Performed By: #### 2 4321-2 ####[facility]ORATORYCLIA [id number] [place] [address] [place] CO2 [Moles/Vol] 29 mmol/L Normal 22-30 [facility] Comment on above: Order Comment: Speci men Type: BLOOD SPECIMENOrdering Facility: [facility] Address: [address] [place] [address] Performed By: #### 2 4321-2 ####[facility]ORATORYCLIA [id number] [address] STATES OF [facility] Creatinine [Mass/Vol] 0.79 mg/dL Normal 0.73-1.22 [facility] Comment on above: Order Comment: Anam perez Type: BLOOD SPECIMENOrdering Facility: [facility] Address: [address] [place] [address] Performed By: #### 2 4321-2 ####[facility]ORATORYCLIA [id number] [address] ESTIMATED GLOMERULAR FILTRATION RATE 97 mL/min/1.73m??? Normal >=60 [facility] Comment on above: Order Comment: Anam perez Type: BLOOD SPECIMENOrdering Facility: [facility] Address: [address] [place] [address] Result Comment: Teena mated Glomerular Filtration Rate [...] actual GFR. Performed By: #### 2 4321-2 ####[facility]ATORYCLIA [id number] [address] Glucose [Mass/Vol] 94 mg/dL Normal 74-99 [facility] Comment on above: Order Comment: Anam chris Type: BLOOD SPECIMENOrdering Facility: [facility] Address: [address] [address] Result Comment: The [place] Diabetes [employer] (ADA) provides guidance for cutoff [...] Standards of Medical Care in Diabetes 2016, [place] [employer]. Diabetes Care. 2016.39(Suppl 1). Performed By: #### 2 4321-2 ####[facility]ORATORYCLIA [id number] [address] STATES OF [facility] Potassium [Moles/Vol] 3.6 mmol/L Low 3.7-5.1 [facility] Comment on above: Order Comment: Dereki chris Type: BLOOD SPECIMENOrdering Facility: [facility] Address: [address] [place] [address] Performed By: #### 2 4321-2 ####[facility]ATORYCLIA [id number] [address] Sodium [Moles/Vol] 137 mmol/L Normal 136-144 [facility] Comment on above: Order Comment: Dereki chris Type: BLOOD SPECIMENOrdering Facility: [facility] Address: [address] [place] [address] Performed By: #### 2 4321-2 ####[facility]ATORYCLIA [id number] [address] Urea nitrogen [Mass/Vol] 13 mg/dL Normal 9-24 [facility] Comment on above: Order Comment: Anam perez Type: BLOOD SPECIMENOrdering Facility: [facility] Address: [address] [address] Performed By: #### 2 4321-2 ####[facility]ATORYCLIA [id number] [address] CBC panel Auto (Bld)on 09-24 Erythrocyte distribution width (RBC) [Ratio] 13.9 % Normal 11.5-15.0 [facility] Comment on above: Order Comment: Anam perez Type: BLOOD SPECIMENOrdering Facility: [facility] Address: [address] [address] Performed By: #### 5 8410-2 ####[facility]ATORYCLIA [id number] [address] Hematocrit (Bld) [Volume fraction] 22.3 % Low 39.0-51.0 [facility] Comment on above: Order Comment: Speci men Type: BLOOD SPECIMENOrdering Facility: [facility] Address: [address] [place] [address] Performed By: #### 5 8410-2 ####[facility]ATORYCLIA [id number] [address] Hemoglobin (Bld) [Mass/Vol] 7.3 g/dL Low 13.0-17.0 [facility] Comment on above: Order Comment: Speci men Type: BLOOD SPECIMENOrdering Facility: [facility] Address: [address] [place] [address] Performed By: #### 5 8410-2 ####[facility]ATORYCLIA [id number] [address] MCH (RBC) [Entitic mass] 31.6 pg Normal 26.0-34.0 [facility] Comment on above: Order Comment: Speci men Type: BLOOD SPECIMENOrdering Facility: [facility] Address: [address] [place] [address] Performed By: #### 5 8410-2 ####[facility]ATORYCLIA [id number] [address] MCHC (RBC) [Mass/Vol] 32.7 g/dL Normal 30.5-36.0 [facility] Comment on above: Order Comment: Speci men Type: BLOOD SPECIMENOrdering Facility: [facility] Address: [address] [place] [address] Performed By: #### 5 8410-2 ####[facility]ATORYCLIA [id number] [address] OF [facility] MCV (RBC) [Entitic vol] 96.5 fL Normal 80.0-100.0 [facility] Comment on above: Order Comment: Speci men Type: BLOOD SPECIMENOrdering Facility: [facility] Address: [address] [address] Performed By: #### 5 8410-2 ####[facility]ATORYCLIA [id number] [address] [place] Nucleated RBC (Bld) [#/Vol] 10*3/uL Normal <0.01 [facility] Comment on above: Order Comment: Speci men Type: BLOOD SPECIMENOrdering Facility: [facility] Address: [address] [place] [address] Performed By: #### 5 8410-2 ####[facility]ATORYCLIA [id number] [address] [place] Platelet mean volume (Bld) [Entitic vol] 10.6 fL Normal 9.0-12.7 [facility] Comment on above: Order Comment: Speci men Type: BLOOD SPECIMENOrdering Facility: [facility] Address: [address] [place] [address] Performed By: #### 5 8410-2 ####[facility]ATORYCLIA [id number] [address] [place] Platelets (Bld) [#/Vol] 165 10*3/uL Normal 150-400 [facility] Comment on above: Order Comment: Speci men Type: BLOOD SPECIMENOrdering Facility: [facility] Address: [address] Performed By: #### 5 8410-2 ####[facility]ATORYCLIA [id number] [address] [place] RBC (Bld) [#/Vol] 2.31 10*6/uL Low 4.20-6.00 [facility] Comment on above: Order Comment: Speci men Type: BLOOD SPECIMENOrdering Facility: [facility] Address: [address] [address] Performed By: #### 5 8410-2 ####[facility]ORATORYCLIA [id number] [place] [address] [place] WBC (Bld) [#/Vol] 10.46 10*3/uL Normal 3.70-11.00 [facility] Comment on above: Order Comment: Speci men Type: BLOOD SPECIMENOrdering Facility: [facility] Address: [address] [place] [address] Performed By: #### 5 8410-2 ####[facility]ORATORYCLIA [id number] [place] [address] [facility] [place] PT EDon 09-24-2021 PT ED HNO ID: [id number] Author: Hayley Bynum DTR Service: Nutrition Therapy Author Type: Director Clinical Research Type: Patient Education Filed: 09/24/2021 2:24 PM [...] 24, 2021 TIME: 2:22 PM PAGER: Normal [facility] XR CHEST 1V FRONTALon 2021 XR [...] in the distal superior vena cava. Overlying crab catcher leads. Intact median sternotomy wires. Lungs and pleura: Trace left apical pneumothorax. Trace bilateral pleural effusions. Cardiomediastinal silhouette: Stable. Other: No significant additional findings. IMPRESSION: Status post removal left-sided chest tube. Trace left apical pneumothorax. Design Analyst: PSCB Transcribe Date/Time: Sep 24 2021 7:11A Dictated by : DAPHNE WILLS MD This examination was interpreted and the report reviewed and electronically signed by: DAPHNE WILLS MD on Sep 24 2021 7:12AM EST [id number] Normal [facility] ALLIED HEALTHon 09-23-2021 ALLIED HEALTH HNO ID: [id number] Author: RT Dixon(R) Service: Radiology Author Type: Technologist Type: Allied [...] Dixon(R) September 23, 2021 4:52 AM Normal [facility] ANES POSTPROC EVALon 022 ANES POSTPROC EVAL HNO ID: [id number] Author: Prosper Escalante MD Service: Anesthesiology Author Type: Physician Type: Anesthesia Postprocedure Evaluation Filed: 09/23/2021 4:00 PM Note Text: POST ANESTHESIA EVALUATION NOTE : 1955 Procedure Summary Date: 09/21/21 Room / Location: MD OR OR Anesthesia Start: 2132 Anesthesia Stop: 09/22/218099 Procedures: BYPASS GRAFT ARTERY CORONARY OFF PUMP TWO ARTERIAL GRAFTS (N/A Chest) BYPASS GRAFT ARTERY CORONARY OFF PUMP VENOUS GRAFT(S) AND ARTERIAL GRAFT(S) SINGLE VEIN GRAFT (N/A Chest) ENDOSCOPIC HARVEST VEIN FOR CORONARY ARTERY BYPASS PROCEDURE (N/A ) Diagnosis: Coronary artery disease with angina pectoris, unspecified vessel or lesion type, unspecified whether [place]am[place] or transplanted heart (HCC) Surgeons: Gregorio Dominguez [...] September 23, 2021 TIME: 3:59 PM CSN: [id number] Normal [facility] Basic metabolic 2000 panelon 09-23-2021 Anion gap [Moles/Vol] 6 mmol/L Low 9-18 [facility] Comment on above: Order Comment: Speci men Type: BLOOD SPECIMENOrdering Facility: [facility] Address: [address] [place] [phone] Performed By: #### 1 9123-9, 20143-5 ####[facility]ORATORYCLIA [id number] [address] STATES OF [facility] Calcium [Mass/Vol] 7.4 mg/dL Low 8.5-10.2 [facility] Comment on above: Order Comment: Speci men Type: BLOOD SPECIMENOrdering Facility: [facility] Address: [address] [place] [address] Performed By: #### 1 9123-9, 10674-8 ####[facility]ORATORYCLIA [id number] [place] [address] [place] Chloride [Moles/Vol] 99 mmol/L Normal 97-105 [facility] Comment on above: Order Comment: Speci men Type: BLOOD SPECIMENOrdering Facility: [facility] Address: [address] [place] [address] Performed By: #### 1 9123-9, 91171-2 ####[facility]ATORYCLIA [id number] [address] [place] CO2 [Moles/Vol] 26 mmol/L Normal 22-30 [facility] Comment on above: Order Comment: Speci men Type: BLOOD SPECIMENOrdering Facility: [facility] Address: [address] [place] [address] Performed By: #### 1 9123-9, 95760-5 ####[facility]ATORYCLIA [id number] [address] [place] Creatinine [Mass/Vol] 0.83 mg/dL Normal 0.73-1.22 [facility] Comment on above: Order Comment: Speci men Type: BLOOD SPECIMENOrdering Facility: [facility] Address: [address] [place] [address] Performed By: #### 1 9123-9, 76985-2 ####[facility]ATORYCLIA [id number] [address] ESTIMATED GLOMERULAR FILTRATION RATE 96 mL/min/1.73m??? Normal >=60 [facility] Comment on above: Order Comment: Speci men Type: BLOOD SPECIMENOrdering Facility: [facility] Address: [address] [phone] Result Comment: Teena mated Glomerular Filtration Rate [...] actual GFR. Performed By: #### 1 9123-9, 74016-9 ####[facility]ORATORYCLIA [id number] [place] [address] [place] Glucose [Mass/Vol] 122 mg/dL High 74-99 [facility] Comment on above: Order Comment: Anam perez Type: BLOOD SPECIMENOrdering Facility: [facility] Address: [address] [place] [address] Result Comment: The [place] Diabetes [employer] (ADA) provides guidance for cutoff [...] Standards of Medical Care in Diabetes 2016, [place] [employer]. Diabetes Care. 2016.39(Suppl 1). Performed By: #### 1 9123-9, 69264-3 ####[facility]ATORYCLIA [id number] [place] [address] [place] Potassium [Moles/Vol] 4.1 mmol/L Normal 3.7-5.1 [facility] Comment on above: Order Comment: Anam perez Type: BLOOD SPECIMENOrdering Facility: [facility] Address: [address] [phone] Performed By: #### 1 9123-9, 31883-7 ####[facility]ATORYCLIA [id number] [address] [place] [facility] Sodium [Moles/Vol] 131 mmol/L Low 136-144 [facility] Comment on above: Order Comment: Speci men Type: BLOOD SPECIMENOrdering Facility: [facility] Address: [address] [place] [address] Performed By: #### 1 9123-9, 40191-6 ####[facility]ATORYCLIA [id number] [address] [place] [facility] Urea nitrogen [Mass/Vol] 13 mg/dL Normal 9-24 [facility] Comment on above: Order Comment: Speci men Type: BLOOD SPECIMENOrdering Facility: [facility] Address: [address] [place] [address] Performed By: #### 1 9123-9, 87521-6 ####[facility]ATORYCLIA [id number] [address] CBC panel Auto (Bld)on 09-23 Erythrocyte distribution width (RBC) [Ratio] 13.1 % Normal 11.5-15.0 [facility] Comment on above: Order Comment: Speci men Type: BLOOD SPECIMENOrdering Facility: [facility] Address: [address] [place] [address] Performed By: #### 5 8410-2 ####[facility]ATORYCLIA [id number] [address] Hematocrit (Bld) [Volume fraction] 19.7 % Low 39.0-51.0 [facility] Comment on above: Order Comment: Speci men Type: BLOOD SPECIMENOrdering Facility: [facility] Address: [address] [place] [address] Performed By: #### 5 8410-2 ####[facility]ATORYCLIA [id number] [address] [place] Hemoglobin (Bld) [Mass/Vol] 6.6 g/dL Low 13.0-17.0 [facility] Comment on above: Order Comment: Speci men Type: BLOOD SPECIMENOrdering Facility: [facility] Address: [address] [place] [address] Performed By: #### 5 8410-2 ####[facility]ATORYCLIA [id number] [address] MCH (RBC) [Entitic mass] 32.0 pg Normal 26.0-34.0 [facility] Comment on above: Order Comment: Speci men Type: BLOOD SPECIMENOrdering Facility: [facility] Address: [address] [place] [address] Performed By: #### 5 8410-2 ####[facility]ATORYCLIA [id number] [address] MCHC (RBC) [Mass/Vol] 33.5 g/dL Normal 30.5-36.0 [facility] Comment on above: Order Comment: Speci men Type: BLOOD SPECIMENOrdering Facility: [facility] Address: [address] [place] [address] Performed By: #### 5 8410-2 ####[facility]ATORYCLIA [id number] [address] MCV (RBC) [Entitic vol] 95.6 fL Normal 80.0-100.0 [facility] Comment on above: Order Comment: Speci men Type: BLOOD SPECIMENOrdering Facility: [facility] Address: [address] [place] [address] Performed By: #### 5 8410-2 ####[facility]ORATORYCLIA [id number] [address] Nucleated RBC (Bld) [#/Vol] 10*3/uL Normal <0.01 [facility] Comment on above: Order Comment: Speci men Type: BLOOD SPECIMENOrdering Facility: [facility] Address: [address] [place] [address] Performed By: #### 5 8410-2 ####[facility]ORATORYCLIA [id number] [address] [place] Platelet mean volume (Bld) [Entitic vol] 10.1 fL Normal 9.0-12.7 [facility] Comment on above: Order Comment: Speci men Type: BLOOD SPECIMENOrdering Facility: [facility] Address: [address] [place] [address] Performed By: #### 5 8410-2 ####[facility]ORATORYCLIA [id number] [place] [address] [place] Platelets (Bld) [#/Vol] 146 10*3/uL Low 150-400 [facility] Comment on above: Order Comment: Speci men Type: BLOOD SPECIMENOrdering Facility: [facility] Address: [address] [place] [address] Performed By: #### 5 8410-2 ####[facility]ORATORYCLIA [id number] [place] [address] [place] RBC (Bld) [#/Vol] 2.06 10*6/uL Low 4.20-6.00 [facility] Comment on above: Order Comment: Speci men Type: BLOOD SPECIMENOrdering Facility: [facility] Address: [address] [place] [address] Performed By: #### 5 8410-2 ####[facility]ATORYCLIA [id number] [address] [place] WBC (Bld) [#/Vol] 12.33 10*3/uL High 3.70-11.00 [facility] Comment on above: Order Comment: Speci men Type: BLOOD SPECIMENOrdering Facility: [facility] Address: [address] [place] [address] Performed By: #### 5 8410-2 ####[facility]ORATORYCLIA [id number] [address] [place] Magnesium SerPl-mCncon 09-23 Magnesium [Mass/Vol] 1.8 mg/dL Normal 1.7-2.3 [facility] Comment on above: Order Comment: Speci men Type: BLOOD SPECIMENOrdering Facility: [facility] Address: [address] [place], [place] [phone] Performed By: #### 1 9123-9, 41417-1 ####[facility]ORATORYCLIA [id number] [place] [address] [place] [facility] XR CHEST 1V FRONTALon 2021 XR CHEST [...] not visualized. Intact median sternotomy wires. Overlying crab catcher leads. Lungs and pleura: Trace right apical pneumothorax. Trace left apical pneumothorax. Minimal atelectasis at the lung bases. Cardiomediastinal silhouette: Stable. Other: No significant additional findings. IMPRESSION: Status post extubation. Trace bilateral apical pneumothoraces. Design Analyst: ISAÍAS Transcribe Date/Time: Sep 23 2021 6:57A Dictated by : DAPHNE WILLS MD This examination was interpreted and the report reviewed and electronically signed by: DAPHNE WILLS MD on Sep 23 2021 6:58AM EST [id number] Normal [facility] ALLIED HEALTHon 09-22-2021 ALLIED HEALTH HNO ID: [id number] Author: RT Dixon(R) Service: Radiology Author Type: Technologist Type: Allied Health Filed: 09/22/2021 4:57 AM Note Text: [...] RT Dixon(R) September 22, 2021 4:57 AM [facility] ALLIED HEALTH HNO ID: [id number] Author: RT Ford(R) Service: Radiology Author Type: Technologist Type: Allied Health Filed: 09/22/2021 12:39 AM Note Text: [...] September 22, 2021 12:39 AM [facility] ANES POSTPROC EVALon 022 ANES POSTPROC EVAL HNO ID: [id number] Author: Dean Ashley DO Service: Anesthesiology Author Type: Physician Type: Anesthesia Postprocedure Evaluation Filed: 09/22/2021 11:32 AM Note Text: POST ANESTHESIA EVALUATION NOTE : 1955 Procedure Summary Date: 09/21/21 Room / Location: MD OR MD OR Anesthesia Start: 747 Anesthesia Stop: 135 Procedure: BYPASS GRAFT ARTERY CORONARY ON-PUMP THREE CORONARY ARTERIAL GRAFTS (N/A Chest) Diagnosis: Coronary artery disease involving salamatof coronary artery of salam[place] heart without angina pectoris Surgeons: Gregorio Dominguez [...] September 22, 2021 TIME: 11:30 AM CSN: [id number] Normal [facility] ANES PRE-OPon 09-22-2021 ANES PRE-OP HNO ID: [id number] Author: Prosper Escalante MD Service: Anesthesiology Author Type: Physician Type: Anesthesia Preprocedure Evaluation Filed: 09/21/2021 10:20 PM Note Text: ANESTHESIOLOGY DAY OF SURGERY NOTE : 1955 Procedure Information Anesthesia Start Date/Time: 09/21/212132 Procedure: BRING BACK FOR A BLEED; BYPASS GRAFT ARTERY CORONARY ON-PUMP USING VENOUS GRAFT(S) AND ARTERIAL GRAFT(S); TWO VENOUS GRAFTS (N/A Chest) Location: MD OR / MD OR Surgeons: Gregorio Dominguez MD Estimated body mass index is 21.69 kg/m? as calculated from the following: Height as of this encounter: 172.7 cm (5' 8). Weight as of this encounter: 64.7 kg (142 lb 10.2 oz). Most recent hematocrit and potassium results: Hematocrit 28.4 09/21/2021 Hematocrit (POCT) 32 09/21/2021 Potassium 4.3 09/21/2021 Potassium (POCT) 4.1 09/21/2021 Relevant Problems CARDIO (+) CAD in [place]am[place] artery (+) 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 (HCC) NEURO-PSYCH (+) [...] and consent discussed: yes. Patient / Responsible [employer] agrees to proceed: yes Patient / [...] iv infusion 50 mL/hr INTRAVENOUS CONTINUOUS - [JUN Hold due to Transfer] insulin regular 100 units in NaCl 0.9% 100 mL - AK CARD SURG NOMOGRAM 0-12 Units/hr INTRAVENOUS CONTINUOUS - [MAR Hold due to Transfer] insulin regular human 10 Units bolus from bag 10 Units INTRAVENOUS PRN - [JUN Hold due to Transfer] dextrose 10% iv [...] PRN - [MAR Hold due to Transfer] acetaminophen 1,000 mg tab(s) (TYLENOL) 1,000 mg ORAL QID - [MAR Hold due to Transfer] gabapentin 200 mg cap(s) (N (more content not included)... Normal [facility] ARTERIAL BLOOD GASESon 06-21 -2022 BASE DEFICIT, ARTERIAL -1 mmol/L Normal -2-0 [facility] Comment on above: Order Comment: Speci men Type: ARTERIAL BLOOD SPECIMENOrdering Facility: [facility] Address: [address] [place] [address] Performed By: #### A LLBG ####[facility]ORATORYCLIA [id number] [address] STATES OF [facility] Body temperature 97.7 [degF] Normal [facility] Comment on above: Order Comment: Speci men Type: ARTERIAL BLOOD SPECIMENOrdering Facility: [facility] Address: [address] [place] [address] Performed By: #### A LLBG ####[facility]ORATORYCLIA [id number] [address] [place] CALCIUM IONIZED, PH CORRECTED 1.10 mmol/L Normal 1.08-1.30 [facility] Comment on above: Order Comment: Speci men Type: ARTERIAL BLOOD SPECIMENOrdering Facility: [facility] Address: [address] [place] [address] Performed By: #### A LLBG ####[facility]ORATORYCLIA [id number] [address] [place] Calcium.ionized (BldV) [Mass/Vol] 1.12 mmol/L Normal 1.08-1.30 [facility] Comment on above: Order Comment: Speci men Type: ARTERIAL BLOOD SPECIMENOrdering Facility: [facility] Address: [address] [place] [address] Performed By: #### A LLBG ####[facility]ORATORYCLIA [id number] [address] [place] Carboxyhemoglobin (BldA) [Mass fraction] 1.0 % Normal 0.0-2.0 [facility] Comment on above: Order Comment: Speci men Type: ARTERIAL BLOOD SPECIMENOrdering Facility: [facility] Address: [address] [place] [address] Result Comment: Carb oxyhemoglobin Reference Range for Smokers: 2.0-8.0% Performed By: #### A LLBG ####[facility]ORATORYCLIA [id number] [address] OF [facility] CO2 (Bld) [Partial pressure] 44 mm Hg Normal 36-46 [facility] Comment on above: Order Comment: Speci men Type: ARTERIAL BLOOD SPECIMENOrdering Facility: [facility] Address: [address] [place] [address] Performed By: #### A LLBG ####[facility]ORATORYCLIA [id number] [address] [place] CO2 [Moles/Vol] 23 mmol/L Normal 22-28 [facility] Comment on above: Order Comment: Speci men Type: ARTERIAL BLOOD SPECIMENOrdering Facility: [facility] Address: [address] [place] [address] Performed By: #### A LLBG ####[facility]ORATORYCLIA [id number] [address] CO2 adjusted to patient's actual temperature (Bld) [Partial pressure] 43 mmHg Normal 36-46 [facility] Comment on above: Order Comment: Speci men Type: ARTERIAL BLOOD SPECIMENOrdering Facility: [facility] Address: [address] [place] [address] Performed By: #### A LLBG ####[facility]ORATORYCLIA [id number] [address] [place] FIO2 30 % Normal [facility] Comment on above: Order Comment: Speci men Type: ARTERIAL BLOOD SPECIMENOrdering Facility: [facility] Address: [address] [place] [address] Performed By: #### A LLBG ####[facility]ATORYCLIA [id number] [address] [place] Glucose [Mass/Vol] 98 mg/dL Normal 60-105 [facility] Comment on above: Order Comment: Speci men Type: ARTERIAL BLOOD SPECIMENOrdering Facility: [facility] Address: [address] [place] [address] Performed By: #### A LLBG ####[facility]ATORYCLIA [id number] [address] [place] HCO3 (Bld) [Moles/Vol] 24 mmol/L Normal 22-26 [facility] Comment on above: Order Comment: Speci men Type: ARTERIAL BLOOD SPECIMENOrdering Facility: [facility] Address: [address] [place] [address] Performed By: #### A LLBG ####[facility]ATORYCLIA [id number] [address] [place] Hematocrit (Bld) [Volume fraction] 24.7 % Low 39.0-51.0 [facility] Comment on above: Order Comment: Speci men Type: ARTERIAL BLOOD SPECIMENOrdering Facility: [facility] Address: [address] [place] [address] Performed By: #### A LLBG ####[facility]ORATORYCLIA [id number] [address] OF [facility] Hemoglobin (Bld) [Mass/Vol] 7.9 g/dL Low 13.0-17.0 [facility] Comment on above: Order Comment: Speci men Type: ARTERIAL BLOOD SPECIMENOrdering Facility: [facility] Address: [address] [place] [address] Performed By: #### A LLBG ####[facility]ORATORYCLIA [id number] [address] [facility] Methemoglobin (Bld) [Mass fraction] % Normal 0.0-1.5 [facility] Comment on above: Order Comment: Speci men Type: ARTERIAL BLOOD SPECIMENOrdering Facility: [facility] Address: [address] [place] [address] Performed By: #### A LLBG ####[facility]ORATORYCLIA [id number] [address] STATES OF [place] O2 THERAPY Ventilator Normal [facility] Comment on above: Order Comment: Speci men Type: ARTERIAL BLOOD SPECIMENOrdering Facility: [facility] Address: [address] [place] [address] Performed By: #### A LLBG ####[facility] LABORATORYCLIA [id number] [address] Oxygen (Bld) [Partial pressure] 91 mm Hg Normal 85-95 [facility] Comment on above: Order Comment: Speci men Type: ARTERIAL BLOOD SPECIMENOrdering Facility: [facility] Address: [address] [place] [address] Performed By: #### A LLBG ####[facility] LABORATORYCLIA [id number] [address] Oxygen adjusted to patient's actual temperature (Bld) [Partial pressure] 88 mmHg Normal 85-95 [facility] Comment on above: Order Comment: Speci men Type: ARTERIAL BLOOD SPECIMENOrdering Facility: [facility] Address: [address] [place] [address] Performed By: #### A LLBG ####[facility]ATORYCLIA [id number] [address] OF [place] OXYGEN SATURATION, ARTERIAL 97 % Normal 95-98 [facility] Comment on above: Order Comment: Speci men Type: ARTERIAL BLOOD SPECIMENOrdering Facility: [facility] Address: [address] [place] [address] Performed By: #### A LLBG ####[facility]ORATORYCLIA [id number] [address] [place] Oxyhemoglobin (BldA) [Mass fraction] 95 % Normal 95-98 [facility] Comment on above: Order Comment: Speci men Type: ARTERIAL BLOOD SPECIMENOrdering Facility: [facility] Address: [address] [place] [address] Performed By: #### A LLBG ####[facility]ORATORYCLIA [id number] [address] [place] pH (Bld) 7.36 [pH] Normal 7.35-7.45 [facility] Comment on above: Order Comment: Speci men Type: ARTERIAL BLOOD SPECIMENOrdering Facility: [facility] Address: [address] [place] [address] Performed By: #### A LLBG ####[facility]ATORYCLIA [id number] [address] pH adjusted to patient's actual temperature (Bld) 7.37 Normal 7.35-7.45 [facility] Comment on above: Order Comment: Speci men Type: ARTERIAL BLOOD SPECIMENOrdering Facility: [facility] Address: [address] [place] [address] Performed By: #### A LLBG ####[facility]ATORYCLIA [id number] [address] OF [place] Potassium [Moles/Vol] 3.5 mmol/L Normal 3.5-5.0 [facility] Comment on above: Order Comment: Speci men Type: ARTERIAL BLOOD SPECIMENOrdering Facility: [facility] Address: [address] [place] [address] Performed By: #### A LLBG ####[facility]ATORYCLIA [id number] [address] Sodium [Moles/Vol] 134 mmol/L Low 136-144 [facility] Comment on above: Order Comment: Speci men Type: ARTERIAL BLOOD SPECIMENOrdering Facility: [facility] Address: [address] [place] [address] Performed By: #### A LLBG ####[facility]ATORYCLIA [id number] [address] OF [place] BRIEF OP NOTon 09-22-2021 BRIEF OP NOT HNO ID: [id number] Author: Gregorio Dominguez MD Service: Cardiac Surgery Author Type: Physician Type: Brief Op Note Filed: 09/21/2021 11:10 PM Note Text: CARDIOTHORACIC BRIEF OP NOTE LOG ID: [id number] SURGERY/PROCEDURE DATE: 09/21/2021 - 09/22/2021 INCISION/PROCEDURE START TIME: 10:10 PM INCISION CLOSE/PROCEDURE END TIME: SURGEON(S) AND DRIVE AWAY DRIVER(S): Surgeon(s) and Role: * Gregorio Dominguez MD - Primary Physician Medical Typist: SANJUANA Turner PA, first assist: Tasks: assisted with opening, closing, retracting, suturing No qualified resident available PROCEDURES AND ANESTHESIA: Procedure(s) and Anesthesia Type: * BRING BACK FOR A BLEED; EXPLORATION OF MEDIASTINUM, CONTROL OF HEMMORRHAGE OF LEFT ABBEY BED, AND EVACUATION OF LEFT HEMOTHORAX - General ANESTHESIA: General BRIEF FINDINGS: bleeding from small artery left ABBEY bed; left hemothorax; no other sites of bleeding ESTIMATED BLOOD LOSS: Minimal SPECIMENS: None COMPLICATIONS: None PREOPERATIVE DIAGNOSIS: s/p CABG; post op mediastinal hemorrhage POSTOPERATIVE DIAGNOSIS: s/p CABG; post op mediastinal hemorrhage SIGNATURE: Gregorio Dominguez MD PATIENT NAME: Radha Brennan DATE: September 21, 2021 TIME: 11:07 PM PAGER/CONTACT #: [phone] Normal [facility] Basic metabolic 2000 panelon 09-22-2021 Anion gap [Moles/Vol] 6 mmol/L Low 9-18 [facility] Comment on above: Order Comment: Speci men Type: BLOOD SPECIMENOrdering Facility: [facility] Address: [address] [place] [address] Performed By: #### 2 43204-05, ####[facility]ATORYCLIA [id number] [place] [address] [place] Calcium [Mass/Vol] 7.5 mg/dL Low 8.5-10.2 [facility] Comment on above: Order Comment: Speci men Type: BLOOD SPECIMENOrdering Facility: [facility] Address: [address] [place] [address] Performed By: #### 2 4320-05, ####[facility]ORATORYCLIA [id number] [place] [address] [place] Chloride [Moles/Vol] 106 mmol/L High 97-105 [facility] Comment on above: Order Comment: Speci men Type: BLOOD SPECIMENOrdering Facility: [facility] Address: [address] [place] [address] Performed By: #### 2 4320-05, ####[facility]ORATORYCLIA [id number] [address] STATES OF [facility] CO2 [Moles/Vol] 22 mmol/L Normal 22-30 [facility] Comment on above: Order Comment: Speci men Type: BLOOD SPECIMENOrdering Facility: [facility] Address: [address] [place] [address] Performed By: #### 2 4320-05, ####[facility]ATORYCLIA [id number] [address] STATES OF [facility] Creatinine [Mass/Vol] 0.80 mg/dL Normal 0.73-1.22 [facility] Comment on above: Order Comment: Speci men Type: BLOOD SPECIMENOrdering Facility: [facility] Address: [address] [place] [address] Performed By: #### 2 4320-05, ####[facility] HOSPITALCLIA [id number] [address] ESTIMATED GLOMERULAR FILTRATION RATE 97 mL/min/1.73m??? Normal >=60 [facility] Comment on above: Order Comment: Speci men Type: BLOOD SPECIMENOrdering Facility: [facility] Address: [address] [place] [address] Result Comment: Teena mated Glomerular Filtration Rate [...] reflect actual GFR. Performed By: #### 2 432-2, ####[facility]ORATORYCLIA [id number] [address] [place] Glucose [Mass/Vol] 92 mg/dL Normal 74-99 [facility] Comment on above: Order Comment: Speci men Type: BLOOD SPECIMENOrdering Facility: [facility] Address: [address] [place] [address] Result Comment: The [place] Diabetes [employer] (ADA) provides guidance for cutoff [...] Standards of Medical Care in Diabetes 2016, [place] [employer]. Diabetes Care. 2016.39(Suppl 1). Performed By: #### 2 43204-05, ####[facility]ATORYCLIA [id number] [place] [address] [place] Potassium [Moles/Vol] 4.5 mmol/L Normal 3.7-5.1 [facility] Comment on above: Order Comment: Anam perez Type: BLOOD SPECIMENOrdering Facility: [facility] Address: [address] [place] [address] Performed By: #### 2 4320-05, ####[facility]ATORYCLIA [id number] [place] [address] [place] Sodium [Moles/Vol] 134 mmol/L Low 136-144 [facility] Comment on above: Order Comment: Dereki men Type: BLOOD SPECIMENOrdering Facility: [facility] Address: [address] [place] [address] Performed By: #### 2 4320-05, ####[facility]ATORYCLIA [id number] [place] [address] [place] Urea nitrogen [Mass/Vol] 15 mg/dL Normal 9-24 [facility] Comment on above: Order Comment: Speci men Type: BLOOD SPECIMENOrdering Facility: [facility] Address: [address] [place] [address] Performed By: #### 2 4321-2, 32113-6 ####[facility] LABORATORYCLIA [id number] [place] [address] [place] Anion gap [Moles/Vol] 7 mmol/L Low 9-18 [facility] Comment on above: Order Comment: Speci men Type: BLOOD SPECIMENOrdering Facility: [facility] Address: [address] [place] [address] Performed By: #### 2 4321-2 ####[facility]ATORYCLIA [id number] [place] [address] [place] Calcium [Mass/Vol] 7.1 mg/dL Low 8.5-10.2 [facility] Comment on above: Order Comment: Speci men Type: BLOOD SPECIMENOrdering Facility: [facility] Address: [address] [place] [address] Performed By: #### 2 4321-2 ####[facility]ORATORYCLIA [id number] [place] [address] [place] Chloride [Moles/Vol] 107 mmol/L High 97-105 [facility] Comment on above: Order Comment: Speci men Type: BLOOD SPECIMENOrdering Facility: [facility] Address: [address] [place] [address] Performed By: #### 2 4321-2 ####[facility]ATORYCLIA [id number] [place] [address] [place] CO2 [Moles/Vol] 23 mmol/L Normal 22-30 [facility] Comment on above: Order Comment: Speci men Type: BLOOD SPECIMENOrdering Facility: [facility] Address: [address] [place] [address] Performed By: #### 2 4321-2 ####[facility]ATORYCLIA [id number] [place] [address] [place] Creatinine [Mass/Vol] 0.90 mg/dL Normal 0.73-1.22 [facility] Comment on above: Order Comment: Anam perez Type: BLOOD SPECIMENOrdering Facility: [facility] Address: [address] [address] Performed By: #### 2 4321-2 ####[facility]ORATORYCLIA [id number] [place] [id number] [facility] ESTIMATED GLOMERULAR FILTRATION RATE 94 mL/min/1.73m??? Normal >=60 [facility] Comment on above: Order Comment: Anam perez Type: BLOOD SPECIMENOrdering Facility: [facility] Address: [address] [address] Result Comment: Teena mated Glomerular Filtration Rate [...] actual GFR. Performed By: #### 2 4321-2 ####[facility]ATORYCLIA [id number] [place] [address] [place] Glucose [Mass/Vol] 89 mg/dL Normal 74-99 [facility] Comment on above: Order Comment: Anam perez Type: BLOOD SPECIMENOrdering Facility: [facility] Address: [address] [place] [address] Result Comment: The [place] Diabetes [employer] (ADA) provides guidance for cutoff [...] Standards of Medical Care in Diabetes 2016, [place] [employer]. Diabetes Care. 2016.39(Suppl 1). Performed By: #### 2 4321-2 ####[facility]ATORYCLIA [id number] [place] [address] [place] Potassium [Moles/Vol] 4.9 mmol/L Normal 3.7-5.1 [facility] Comment on above: Order Comment: Speci men Type: BLOOD SPECIMENOrdering Facility: [facility] Address: [address] [place] [address] Performed By: #### 2 4321-2 ####[facility]ATORYCLIA [id number] [address] [place] Sodium [Moles/Vol] 137 mmol/L Normal 136-144 [facility] Comment on above: Order Comment: Speci men Type: BLOOD SPECIMENOrdering Facility: [facility] Address: [address] [place] [address] Performed By: #### 2 4321-2 ####[facility]ATORYCLIA [id number] [address] [place] Urea nitrogen [Mass/Vol] 15 mg/dL Normal 9-24 [facility] Comment on above: Order Comment: Speci men Type: BLOOD SPECIMENOrdering Facility: [facility] Address: [address] [place] [address] Performed By: #### 2 4321-2 ####[facility]ORATORYCLIA [id number] [address] [place] CASE MANAGEMon 09-22-2021 CASE MANAGEM HNO ID: [id number] Author: SERGIO Almanza Service: ? Author Type: School Psychology Specialist Type: Care Mgt Progress Note Filed: 09/22/2021 [...] 22, 2021 TIME: 12:31 PM PAGER/CONTACT #: [phone] [facility] CASE MGT INIT Gisele 2021 CASE MGT INIT FAIZA HNO ID: [id number] Author: SERGIO Almanza Service: ? Author Type: School Psychology Specialist Type: Care Mgt Initial Assessment Filed: 09/22/2021 12:30 PM Note Text: CARE MANAGEMENT: ASSESSMENT AND DISCHARGE PLAN SERVICE DATE: September 22, 2021 SERVICE TIME: 12:25 PM PRIMARY CARE PHYSICIAN: Clement Swanson MD, MD Primary Contact: Extended Emergency Contact Information Primary Emergency Contact: Mika Anthony Mobile Relation: Brother Secondary Emergency Contact: Malik Brennan Mobile Relation: Daughter ADMISSION STATUS: Inpatient [facility] NEED[facility] PRIOR TO DISCHARGE Needs Prior to Discharge: To Be Determined;Discharge Transportation POTENTIAL TRANSITION PLANS Home;Home Care;To Be Determined Based on clinical judgement, Care Management will address the following needs: Medical;Functional Patient's perception of need for this admission: Unable to answer, somewhat confused ADVANCE DIRECTIVES Current Advance Directive: None Special Education Tutor Attempted to Assist with AD Completion: Yes [...] discharge within 30 days: No 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 Yes ASSESSMENT AND PLAN: SW met with pt at bedside. Pt in [facility] for scheduled CABG. Pt from home in [facility], states the managers of [facility] [employer] and [place] have been taking care [...] if asked he stated. Possible HHC at me. Pt needs transportation at d/c. SIGNATURE: SERGIO Almanza PATIENT NAME: Radha Brennan DATE: September 22, 2021 TIME: 12:25 PM CONTACT #: [id number] Normal [facility] CBC panel Auto (Bld)on 09-22 Erythrocyte distribution width (RBC) [Ratio] 13.1 % Normal 11.5-15.0 [facility] Comment on above: Order Comment: Speci men Type: BLOOD SPECIMENOrdering Facility: [facility] Address: [address] [place] [address] Performed By: #### 5 8410-2 ####[facility]ORATORYCLIA [id number] [address] Hematocrit (Bld) [Volume fraction] 23.4 % Low 39.0-51.0 [facility] Comment on above: Order Comment: Speci men Type: BLOOD SPECIMENOrdering Facility: [facility] Address: [address] [place] [address] Performed By: #### 5 8410-2 ####[facility]ORATORYCLIA [id number] [address] OF [facility] Hemoglobin (Bld) [Mass/Vol] 7.9 g/dL Low 13.0-17.0 [facility] Comment on above: Order Comment: Speci men Type: BLOOD SPECIMENOrdering Facility: [facility] Address: [address] [place] [address] Performed By: #### 5 8410-2 ####[facility]ORATORYCLIA [id number] [address] STATES OF [facility] MCH (RBC) [Entitic mass] 33.2 pg Normal 26.0-34.0 [facility] Comment on above: Order Comment: Speci men Type: BLOOD SPECIMENOrdering Facility: [facility] Address: [address] [place] [address] Performed By: #### 5 8410-2 ####[facility]ORATORYCLIA [id number] [address] [place] MCHC (RBC) [Mass/Vol] 33.8 g/dL Normal 30.5-36.0 [facility] Comment on above: Order Comment: Speci men Type: BLOOD SPECIMENOrdering Facility: [facility] Address: [address] [place] [address] Performed By: #### 5 8410-2 ####[facility]ATORYCLIA [id number] [address] MCV (RBC) [Entitic vol] 98.3 fL Normal 80.0-100.0 [facility] Comment on above: Order Comment: Speci men Type: BLOOD SPECIMENOrdering Facility: [facility] Address: [address] [address] Performed By: #### 5 8410-2 ####[facility]ATORYCLIA [id number] [address] [place] Nucleated RBC (Bld) [#/Vol] 10*3/uL Normal <0.01 [facility] Comment on above: Order Comment: Speci men Type: BLOOD SPECIMENOrdering Facility: [facility] Address: [address] [place] [address] Performed By: #### 5 8410-2 ####[facility]ATORYCLIA [id number] [address] [place] Platelet mean volume (Bld) [Entitic vol] 10.1 fL Normal 9.0-12.7 [facility] Comment on above: Order Comment: Speci men Type: BLOOD SPECIMENOrdering Facility: [facility] Address: [address] [place] [address] Performed By: #### 5 8410-2 ####[facility]ATORYCLIA [id number] [address] [place] Platelets (Bld) [#/Vol] 203 10*3/uL Normal 150-400 [facility] Comment on above: Order Comment: Speci men Type: BLOOD SPECIMENOrdering Facility: [facility] Address: [address] Performed By: #### 5 8410-2 ####[facility]ATORYCLIA [id number] [address] [place] RBC (Bld) [#/Vol] 2.38 10*6/uL Low 4.20-6.00 [facility] Comment on above: Order Comment: Speci men Type: BLOOD SPECIMENOrdering Facility: [facility] Address: [address] [place] [address] Performed By: #### 5 8410-2 ####[facility]ORATORYCLIA [id number] [address] STATES OF [facility] WBC (Bld) [#/Vol] 16.50 10*3/uL High 3.70-11.00 [facility] Comment on above: Order Comment: Speci men Type: BLOOD SPECIMENOrdering Facility: [facility] Address: [address] [place] [address] Performed By: #### 5 8410-2 ####[facility]ORATORYCLIA [id number] [address] Erythrocyte distribution width (RBC) [Ratio] 12.8 % Normal 11.5-15.0 [facility] Comment on above: Order Comment: Speci men Type: BLOOD SPECIMENOrdering Facility: [facility] Address: [address] [place] [address] Performed By: #### 5 8410-2 ####[facility]ORATORYCLIA [id number] [address] Hematocrit (Bld) [Volume fraction] 23.7 % Low 39.0-51.0 [facility] Comment on above: Order Comment: Speci men Type: BLOOD SPECIMENOrdering Facility: [facility] Address: [address] [place] [address] Performed By: #### 5 8410-2 ####[facility]ORATORYCLIA [id number] [address] Hemoglobin (Bld) [Mass/Vol] 7.9 g/dL Low 13.0-17.0 [facility] Comment on above: Order Comment: Speci men Type: BLOOD SPECIMENOrdering Facility: [facility] Address: [address] [place] [address] Performed By: #### 5 8410-2 ####[facility]ORATORYCLIA [id number] [address] [place] MCH (RBC) [Entitic mass] 32.4 pg Normal 26.0-34.0 [facility] Comment on above: Order Comment: Speci men Type: BLOOD SPECIMENOrdering Facility: [facility] Address: [address] [place] [address] Performed By: #### 5 8410-2 ####[facility]ORATORYCLIA [id number] [address] MCHC (RBC) [Mass/Vol] 33.3 g/dL Normal 30.5-36.0 [facility] Comment on above: Order Comment: Speci men Type: BLOOD SPECIMENOrdering Facility: [facility] Address: [address] [place] [address] Performed By: #### 5 8410-2 ####[facility]ORATORYCLIA [id number] [address] [facility] MCV (RBC) [Entitic vol] 97.1 fL Normal 80.0-100.0 [facility] Comment on above: Order Comment: Speci men Type: BLOOD SPECIMENOrdering Facility: [facility] Address: [address] [place] [address] Performed By: #### 5 8410-2 ####[facility]ORATORYCLIA [id number] [address] Nucleated RBC (Bld) [#/Vol] 10*3/uL Normal <0.01 [facility] Comment on above: Order Comment: Speci men Type: BLOOD SPECIMENOrdering Facility: [facility] Address: [address] [place] [address] Performed By: #### 5 8410-2 ####[facility]ORATORYCLIA [id number] [address] Platelet mean volume (Bld) [Entitic vol] 9.5 fL Normal 9.0-12.7 [facility] Comment on above: Order Comment: Speci men Type: BLOOD SPECIMENOrdering Facility: [facility] Address: [address] [place] [address] Performed By: #### 5 8410-2 ####[facility]ORATORYCLIA [id number] [address] OF [facility] Platelets (Bld) [#/Vol] 189 10*3/uL Normal 150-400 [facility] Comment on above: Order Comment: Speci men Type: BLOOD SPECIMENOrdering Facility: [facility] Address: [address] [place] [address] Performed By: #### 5 8410-2 ####[facility]ORATORYCLIA [id number] [address] OF [facility] RBC (Bld) [#/Vol] 2.44 10*6/uL Low 4.20-6.00 [facility] Comment on above: Order Comment: Speci men Type: BLOOD SPECIMENOrdering Facility: [facility] [facility]OSP[facility] Address: [address] [place] [address] Performed By: #### 5 8410-2 ####[facility]ITALCLIA [id number] [address] WBC (Bld) [#/Vol] 15.29 10*3/uL High 3.70-11.00 [facility] Comment on above: Order Comment: Speci men Type: BLOOD SPECIMENOrdering Facility: [facility] Address: [address] [place] [address] Performed By: #### 5 8410-2 ####[facility]ORY[facility] [id number] [address] HBV surface Ab IA Ql (S)on 0 09-22-2021 HBV surface Ag Ql (S) Negative Normal Negative [facility] Comment on above: Order Comment: Speci men Type: BLOOD SPECIMENOrdering Facility: External Submitter Address: , , Performed By: #### 1 6128-1, 36025-6 ####[facility]ORYCLIA [id number] [address] OF [facility] HCV Ab Ser Qlon 09-22-2021 HCV Ab Ql (S) Negative Normal Negative [facility] Comment on above: Order Comment: Speci men Type: BLOOD SPECIMENOrdering Facility: External Submitter Address: , , Performed By: #### 1 6128-1, 69066-6 ####[facility]ORYCLIA [id number] [address] HIV 1+2 Ab IA Qlon 2 HIV 1 and 2 Ab IA.rapid Nom Normal [facility] Comment on above: Order Comment: Speci men Type: BLOOD SPECIMENOrdering Facility: External Submitter Address: , , Result Comment: Test not indicated. Performed By: #### 3 1201-7 ####[facility]ORYCLIA [id number] [address] HIV 1+2 Ab+HIV1 p24 Ag IA Ql Non-Reactive Normal Nonreactive [facility] Comment on above: Order Comment: Speci men Type: BLOOD SPECIMENOrdering Facility: External Submitter Address: , , Result Comment: [place] Rev. Code 3701.243(E): This information has been [...] or diagnoses. Performed By: #### 3 1201-7 ####[facility]ORYCLIA [id number] [address] HIVINT Normal [facility] Comment on above: Order Comment: Speci men Type: BLOOD SPECIMENOrdering Facility: External Submitter Address: , , Result Comment: No e vidence of HIV-1 or HIV-2 infection. Should recent infection be suspected, repeat testing may be considered 2-3 weeks after this draw. Performed By: #### 3 1201-7 ####[facility]ORYCLIA [id number] [address] HIV RAPID SCREENon 2 HIV 1 Ab Ql (S) Negative Normal Non-Reactive : Negative for both HIV1 and HIV2 antibodies. [facility] Comment on above: Order Comment: Speci [...] antigen/antibody combination test is recommended. HIV Information: ???[place] Rev. Code 3701.243(E): This information has been [...] or diagnoses. Performed By: #### M MHHIV ####[facility]ITALCLIA [id number] [address] HIV P24 ANTIGEN Negative Normal Non-Reactive : Negative for p24 antigen [facility] Comment on above: Order Comment: Speci men Type: BLOOD SPECIMENOrdering Facility: External Submitter Address: , , Performed By: #### M MHSCV ####[facility] HOSPITALIA [id number] [place] [address] [place] Magnesium SerPl-mCncon 09-22 Magnesium [Mass/Vol] 1.9 mg/dL Normal 1.7-2.3 [facility] Comment on above: Order Comment: Speci men Type: BLOOD SPECIMENOrdering Facility: [facility] Address: [address] [place] [address] Performed By: #### 2 4321-2, 77171-4 ####[facility]ORYCLIA [id number] [place] [address] [place] NURSING PROGon 09-22-2021 NURSING PROG HNO ID: [id number] Author: Mana Miles RN Service: Nursing Author Type: Registered Nurse Type: Nursing Progress Note Filed: 09/22/2021 8:22 AM Note Text: Nursing Progress: Topic: RESTRAINT NON-VIOLENT PATIENT NAME: Radha Brennan PATIENT LOCATION: [id number] [address]* The patient demonstrates Attempting to Remove Medical [...] 8:22 AM Mana Miles RN [facility] NURSING PROG HNO ID: [id number] Author: Veronica Ramirez RN Service: Nursing Author Type: Registered Nurse Type: Nursing Progress Note Filed: 09/22/2021 6:04 AM Note Text: Nursing Progress: Topic: RESTRAINT NON-VIOLENT PATIENT NAME: Radha Brennan PATIENT LOCATION: [id number] [address]* The patient demonstrates as evidenced by the [...] 6:04 AM Veronica Ramirez RN [facility] NUTRITIONon 09-22-2021 NUTRITION HNO ID: [id number] Author: Lidia Puentes RD Service: Nutrition Therapy [...] fat/muscle stores;Anorexia;Intake records;Patient/family self-report Estimated kilocalorie needs: 5720-6946 Calorie Calculation Method: 25-30 kcals/kg Estimated protein [...] MEDICAL HISTORY Diagnosis Date - Atherosclerosis of [place] coronary artery of [place] heart with angina pectoris (HCC) - Atrial septal aneurysm - 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 Started on heart healthy diet today. 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 Planning to stay at [employer], spouse is home health aide, reports kids [...] feet;General symptoms and signs-other Interventions Provided: Evaluation;Self Chcf Management (54740) $ Evaluation-Moderate (80333) Billed Units: 1 unit Self Chcf Management (9753 (more content not included)... 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 [facility], spouse is home health aide, reports kids [...] sit to/ (more content not included)... Normal [facility] XR CHEST 1V FRONTALon 2021 XR [...] Mediastinal drain to the left midline. Overlying crab catcher leads. Intact median sternotomy wires. Lungs and pleura: Small right apical pneumothorax. Minimal atelectasis at left lung base. Lungs are otherwise fairly clear. Cardiomediastinal silhouette: Normal cardiomediastinal silhouette. Other: Air is seen within the soft tissues in the neck. Stable. IMPRESSION: Small right apical pneumothorax otherwise stable findings. Design Analyst: ISAÍAS Transcribe Date/Time: Sep 22 2021 7:27A Dictated by : DAPHNE WILLS MD This examination was interpreted and the report reviewed and electronically signed by: DAPHNE WILLS MD on Sep 22 2021 7:32AM EST [id number] Normal [facility] XR CHEST 1V FRONTAL * * [...] tracking from pneumomediastinum. Continued follow-up is recommended. Design Analyst: ISAÍAS Transcribe Date/Time: Sep 22 2021 1:00A Dictated by : RACHELLE JOSE MD This examination was interpreted and the report reviewed and electronically signed by: RACHELLE JOSE MD on Sep 22 2021 1:08AM EST [id number] Normal [facility] ALLIED HEALTHon 09-21-2021 ALLIED HEALTH HNO ID: [id number] Author: RT Anay(R) Service: Radiology Author Type: Technologist Type: Allied Health Filed: 09/21/2021 8:07 PM Note Text: [...] RT Babar(R) September 21, 2021 8:07 PM [facility] ALLIED HEALTH HNO ID: [id number] Author: RT Janice(R) Service: Radiology Author Type: Technologist Type: Allied Health Filed: 09/21/2021 2:04 PM Note Text: [...] September 21, 2021 2:04 PM [facility] ANES PRE-OPon 09-21-2021 ANES PRE-OP HNO ID: [id number] Author: Lukas Marie MD Service: ? Author Type: Physician Type: Anesthesia Preprocedure Evaluation Filed: 09/21/2021 6:56 AM Note Text: ANESTHESIOLOGY DAY OF SURGERY NOTE : 1955 Procedure Information Date/Time: 09/21/21729 Procedure: BYPASS GRAFT ARTERY CORONARY ON-PUMP THREE CORONARY ARTERIAL GRAFTS (N/A Chest) Location: MD OR / MD OR Surgeons: Gregorio Dominguez MD Estimated body [...] Problems CARDIO (+) 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 (HCC) NEURO-PSYCH (+) Cerebrovascular accident (CVA) ([facility]) (+) Seizures ([facility]) I - PHYSICAL EVALUATION AIRWAY [...] 0649 Pulse 60 09/21/21 0649 Resp 20 09/21/21 0649 Temp 36.3 ?C (97.3 ?F) 09/21/21 0649 SpO2 98 % 09/21/21 0649 Facility-Administered Medications as of 09/21/2021 Medication Dose [...] September 21, 2021 TIME: 6:51 AM CSN: [id number] Normal [facility] ARTERIAL BLOOD GASESon 09-21 BASE DEFICIT, ARTERIAL -5 mmol/L Low -2-0 [facility] Comment on above: Order Comment: Speci men Type: ARTERIAL BLOOD SPECIMENOrdering Facility: [facility] Address: [address] [place] [address] Performed By: #### A LLBG ####[facility]ORYCLIA [id number] [address] [place] Body temperature 96.26 [degF] Normal [facility] Comment on above: Order Comment: Speci men Type: ARTERIAL BLOOD SPECIMENOrdering Facility: [facility] Address: [address] [place] [address] Performed By: #### A LLBG ####[facility]ORYCLIA [id number] [address] [place] CALCIUM IONIZED, PH CORRECTED 1.13 mmol/L Normal 1.08-1.30 [facility] Comment on above: Order Comment: Speci men Type: ARTERIAL BLOOD SPECIMENOrdering Facility: [facility] Address: [address] [place] [address] Performed By: #### A LLBG ####[facility]ORYCLIA [id number] [address] [place] Calcium.ionized (BldV) [Mass/Vol] 1.25 mmol/L Normal 1.08-1.30 [facility] Comment on above: Order Comment: Speci men Type: ARTERIAL BLOOD SPECIMENOrdering Facility: [facility] Address: [address] [place] [address] Performed By: #### A LLBG ####[facility]ORYCLIA [id number] [address] [place] Carboxyhemoglobin (BldA) [Mass fraction] 2.0 % Normal 0.0-2.0 [facility] Comment on above: Order Comment: Speci men Type: ARTERIAL BLOOD SPECIMENOrdering Facility: [facility] Address: [address] [place] [address] Result Comment: Carb oxyhemoglobin Reference Range for Smokers: 2.0-8.0% Performed By: #### A LLBG ####[facility]ORYCLIA [id number] [address] [place] CO2 (Bld) [Partial pressure] 60 mm Hg High 36-46 [facility] Comment on above: Order Comment: Speci men Type: ARTERIAL BLOOD SPECIMENOrdering Facility: [facility] Address: [address] [place] [address] Performed By: #### A LLBG ####[facility]ORYCLIA [id number] [address] [place] CO2 [Moles/Vol] 22 mmol/L Normal 22-28 [facility] Comment on above: Order Comment: Speci men Type: ARTERIAL BLOOD SPECIMENOrdering Facility: [facility] Address: [address] [place] [address] Performed By: #### A LLBG ####[facility]ORYCLIA [id number] [address] CO2 adjusted to patient's actual temperature (Bld) [Partial pressure] 56 mmHg High 36-46 [facility] Comment on above: Order Comment: Speci men Type: ARTERIAL BLOOD SPECIMENOrdering Facility: [facility] Address: [address] [place] [address] Performed By: #### A LLBG ####[facility]ORYCLIA [id number] [address] [place] Glucose [Mass/Vol] 142 mg/dL High 60-105 [facility] Comment on above: Order Comment: Speci men Type: ARTERIAL BLOOD SPECIMENOrdering Facility: [facility] Address: [address] [place] [address] Performed By: #### A LLBG ####[facility]ORYCLIA [id number] [address] [place] HCO3 (Bld) [Moles/Vol] 23 mmol/L Normal 22-26 [facility] Comment on above: Order Comment: Speci men Type: ARTERIAL BLOOD SPECIMENOrdering Facility: [facility] Address: [address] [place] [address] Performed By: #### A LLBG ####[facility]ORYCLIA [id number] [address] [place] Hematocrit (Bld) [Volume fraction] 35.1 % Low 39.0-51.0 [facility] Comment on above: Order Comment: Speci men Type: ARTERIAL BLOOD SPECIMENOrdering Facility: [facility] Address: [address] [place] [address] Performed By: #### A LLBG ####[facility]ORYCLIA [id number] [address] OF [facility] Hemoglobin (Bld) [Mass/Vol] 11.4 g/dL Low 13.0-17.0 [facility] Comment on above: Order Comment: Speci men Type: ARTERIAL BLOOD SPECIMENOrdering Facility: [facility] Address: [address] [place] [address] Performed By: #### A LLBG ####[facility]ORYCLIA [id number] [address] Methemoglobin (Bld) [Mass fraction] 1.1 % Normal 0.0-1.5 [facility] Comment on above: Order Comment: Speci men Type: ARTERIAL BLOOD SPECIMENOrdering Facility: [facility] Address: [address] [place] [address] Performed By: #### A LLBG ####[facility]ORYCLIA [id number] [address] O2 THERAPY Ventilator Normal [facility] Comment on above: Order Comment: Speci men Type: ARTERIAL BLOOD SPECIMENOrdering Facility: [facility] Address: [address] [place] [address] Performed By: #### A LLBG ####[facility]ORYCLIA [id number] [address] [place] Oxygen (Bld) [Partial pressure] 130 mm Hg High 85-95 [facility] Comment on above: Order Comment: Speci men Type: ARTERIAL BLOOD SPECIMENOrdering Facility: [facility] Address: [address] [place] [address] Performed By: #### A LLBG ####[facility]ORYCLIA [id number] [address] Oxygen adjusted to patient's actual temperature (Bld) [Partial pressure] 122 mmHg High 85-95 [facility] Comment on above: Order Comment: Speci men Type: ARTERIAL BLOOD SPECIMENOrdering Facility: [facility] Address: [address] [place] [address] Performed By: #### A LLBG ####[facility]ORYCLIA [id number] [address] [place] OXYGEN SATURATION, ARTERIAL 98 % Normal 95-98 [facility] Comment on above: Order Comment: Speci men Type: ARTERIAL BLOOD SPECIMENOrdering Facility: [facility] Address: [address] [place] [address] Performed By: #### A LLBG ####[facility]ORYCLIA [id number] [address] Oxyhemoglobin (BldA) [Mass fraction] 95 % Normal 95-98 [facility] Comment on above: Order Comment: Speci men Type: ARTERIAL BLOOD SPECIMENOrdering Facility: [facility] Address: [address] [place] [address] Performed By: #### A LLBG ####[facility]ORYCLIA [id number] [address] [place] pH (Bld) 7.22 [pH] Low 7.35-7.45 [facility] Comment on above: Order Comment: Speci men Type: ARTERIAL BLOOD SPECIMENOrdering Facility: [facility] Address: [address] [place] [address] Performed By: #### A LLBG ####[facility]ORYCLIA [id number] [address] STATES OF [facility] pH adjusted to patient's actual temperature (Bld) 7.23 Low 7.35-7.45 [facility] Comment on above: Order Comment: Speci men Type: ARTERIAL BLOOD SPECIMENOrdering Facility: [facility] Address: [address] [place] [address] Performed By: #### A LLBG ####[facility]ATORYCLIA [id number] [place] [address] [place] Potassium [Moles/Vol] 4.0 mmol/L Normal 3.5-5.0 [facility] Comment on above: Order Comment: Speci men Type: ARTERIAL BLOOD SPECIMENOrdering Facility: [facility] Address: [address] [place] [address] Performed By: #### A LLBG ####[facility]ORYCLIA [id number] [place] [address] [place] Sodium [Moles/Vol] 134 mmol/L Low 136-144 [facility] Comment on above: Order Comment: Speci men Type: ARTERIAL BLOOD SPECIMENOrdering Facility: [facility] Address: [address] [place] [address] Performed By: #### A LLBG ####[facility]ORYCLIA [id number] [place] [address] [place] Basic metabolic 2000 panelon 09-21-2021 Anion gap [Moles/Vol] 9 mmol/L Normal 9-18 [facility] Comment on above: Order Comment: Speci men Type: BLOOD SPECIMENOrdering Facility: [facility] Address: [address] [place] [address] Performed By: #### 2 4321-2, 13802-3 ####[facility]ATORYCLIA [id number] [place] [address] [place] Calcium [Mass/Vol] 8.1 mg/dL Low 8.5-10.2 [facility] Comment on above: Order Comment: Speci men Type: BLOOD SPECIMENOrdering Facility: [facility] Address: [address] [place] [address] Performed By: #### 2 4321-2, ####[facility]ORYCLIA [id number] [place] [address] [place] Chloride [Moles/Vol] 105 mmol/L Normal 97-105 [facility] Comment on above: Order Comment: Speci men Type: BLOOD SPECIMENOrdering Facility: [facility] Address: [address] [place] [address] Performed By: #### 2 4320-2, ####[facility]ORYCLIA [id number] [address] [place] CO2 [Moles/Vol] 23 mmol/L Normal 22-30 [facility] Comment on above: Order Comment: Speci men Type: BLOOD SPECIMENOrdering Facility: [facility] Address: [address] [place] [address] Performed By: #### 2 4321-2, ####[facility]ORYCLIA [id number] [address] [place] Creatinine [Mass/Vol] 1.04 mg/dL Normal 0.73-1.22 [facility] Comment on above: Order Comment: Speci men Type: BLOOD SPECIMENOrdering Facility: [facility] Address: [address] [place] [address] Performed By: #### 2 4321-2, ####[facility]ORYCLIA [id number] [address] OF [facility] ESTIMATED GLOMERULAR FILTRATION RATE 79 mL/min/1.73m??? Normal >=60 [facility] Comment on above: Order Comment: Speci men Type: BLOOD SPECIMENOrdering Facility: [facility] Address: [address] [place] [address] Result Comment: Teena mated Glomerular Filtration Rate [...] reflect actual GFR. Performed By: #### 2 43204-05, ####[facility]ORYCLIA [id number] [place] [address] [place] Glucose [Mass/Vol] 141 mg/dL High 74-99 [facility] Comment on above: Order Comment: Anam perez Type: BLOOD SPECIMENOrdering Facility: [facility] Address: [address] [place] [address] Result Comment: The [place] [employer] (ADA) provides guidance for cutoff [...] Standards of Medical Care in Diabetes 2016, [place] [employer]. Diabetes Care. 2016.39(Suppl 1). Performed By: #### 2 4320-05, ####[facility]ORYCLIA [id number] [place] [address] [place] Potassium [Moles/Vol] 4.3 mmol/L Normal 3.7-5.1 [facility] Comment on above: Order Comment: Anam perez Type: BLOOD SPECIMENOrdering Facility: [facility] Address: [address] [place] [id number] Performed By: #### 2 43204-05, ####[facility]ATORYCLIA [id number] [place] [address] [place] Sodium [Moles/Vol] 137 mmol/L Normal 136-144 [facility] Comment on above: Order Comment: Speci men Type: BLOOD SPECIMENOrdering Facility: [facility] Address: [address] [place] [address] Performed By: #### 2 4321-2, ####[facility]ORYCLIA [id number] [address] STATES OF [facility] Urea nitrogen [Mass/Vol] 15 mg/dL Normal 9-24 [facility] Comment on above: Order Comment: Speci men Type: BLOOD SPECIMENOrdering Facility: [facility] Address: [address] [place] [address] Performed By: #### 2 4321-2, ####[facility]ORYCLIA [id number] [address] STATES OF [facility] CBC panel Auto (Bld)on 09-21 Erythrocyte distribution width (RBC) [Ratio] 12.7 % Normal 11.5-15.0 [facility] Comment on above: Order Comment: Speci men Type: BLOOD SPECIMENOrdering Facility: [facility] Address: [address] [place] [address] Performed By: #### 5 8410-2 ####[facility]ORYCLIA [id number] [address] STATES OF [facility] Hematocrit (Bld) [Volume fraction] 28.4 % Low 39.0-51.0 [facility] Comment on above: Order Comment: Speci men Type: BLOOD SPECIMENOrdering Facility: [facility] Address: [address] [place] [address] Performed By: #### 5 8410-2 ####[facility]ORYCLIA [id number] [address] [place] Hemoglobin (Bld) [Mass/Vol] 9.7 g/dL Low 13.0-17.0 [facility] Comment on above: Order Comment: Speci men Type: BLOOD SPECIMENOrdering Facility: [facility] Address: [address] [place] [address] Performed By: #### 5 8410-2 ####[facility]ORYCLIA [id number] [address] MCH (RBC) [Entitic mass] 33.0 pg Normal 26.0-34.0 [facility] Comment on above: Order Comment: Speci men Type: BLOOD SPECIMENOrdering Facility: [facility] Address: [address] [place] [address] Performed By: #### 5 8410-2 ####[facility]ORYCLIA [id number] [address] MCHC (RBC) [Mass/Vol] 34.2 g/dL Normal 30.5-36.0 [facility] Comment on above: Order Comment: Speci men Type: BLOOD SPECIMENOrdering Facility: [facility] Address: [address] [place] [address] Performed By: #### 5 8410-2 ####[facility]ORYCLIA [id number] [address] MCV (RBC) [Entitic vol] 96.6 fL Normal 80.0-100.0 [facility] Comment on above: Order Comment: Speci men Type: BLOOD SPECIMENOrdering Facility: [facility] Address: [address] [place] [address] Performed By: #### 5 8410-2 ####[facility]ORATORYCLIA [id number] [address] Nucleated RBC (Bld) [#/Vol] 10*3/uL Normal <0.01 [facility] Comment on above: Order Comment: Speci men Type: BLOOD SPECIMENOrdering Facility: [facility] Address: [address] [place] [address] Performed By: #### 5 8410-2 ####[facility] LABORATORYCLIA [id number] [address] Platelet mean volume (Bld) [Entitic vol] 9.4 fL Normal 9.0-12.7 [facility] Comment on above: Order Comment: Speci men Type: BLOOD SPECIMENOrdering Facility: [facility] Address: [address] [place] [address] Performed By: #### 5 8410-2 ####[facility]ORATORYCLIA [id number] [address] OF [facility] Platelets (Bld) [#/Vol] 213 10*3/uL Normal 150-400 [facility] Comment on above: Order Comment: Speci men Type: BLOOD SPECIMENOrdering Facility: [facility] Address: [address] [place] [address] Performed By: #### 5 8410-2 ####[facility]ORATORYCLIA [id number] [address] OF [facility] RBC (Bld) [#/Vol] 2.94 10*6/uL Low 4.20-6.00 [facility] Comment on above: Order Comment: Speci men Type: BLOOD SPECIMENOrdering Facility: [facility] Address: [address] [place] [address] Performed By: #### 5 8410-2 ####[facility]ORATORYCLIA [id number] [address] WBC (Bld) [#/Vol] 21.66 10*3/uL High 3.70-11.00 [facility] Comment on above: Order Comment: Speci men Type: BLOOD SPECIMENOrdering Facility: [facility] Address: [address] [place] [address] Performed By: #### 5 8410-2 ####[facility]ORATORYCLIA [id number] [address] Erythrocyte distribution width (RBC) [Ratio] 12.6 % Normal 11.5-15.0 [facility] Comment on above: Order Comment: Speci men Type: BLOOD SPECIMENOrdering Facility: [facility] Address: [address] [place] [address] Performed By: #### 5 8410-2 ####[facility]ATORYCLIA [id number] [address] Hematocrit (Bld) [Volume fraction] 33.0 % Low 39.0-51.0 [facility] Comment on above: Order Comment: Speci men Type: BLOOD SPECIMENOrdering Facility: [facility] Address: [address] [place] [address] Performed By: #### 5 8410-2 ####[facility]ORATORYCLIA [id number] [address] OF [facility] Hemoglobin (Bld) [Mass/Vol] 11.1 g/dL Low 13.0-17.0 [facility] Comment on above: Order Comment: Speci men Type: BLOOD SPECIMENOrdering Facility: [facility] Address: [address] [place] [address] Performed By: #### 5 8410-2 ####[facility]ORATORYCLIA [id number] [address] MCH (RBC) [Entitic mass] 32.6 pg Normal 26.0-34.0 [facility] Comment on above: Order Comment: Speci men Type: BLOOD SPECIMENOrdering Facility: [facility] Address: [address] [place] [address] Performed By: #### 5 8410-2 ####[facility]ATORYCLIA [id number] [address] MCHC (RBC) [Mass/Vol] 33.6 g/dL Normal 30.5-36.0 [facility] Comment on above: Order Comment: Speci men Type: BLOOD SPECIMENOrdering Facility: [facility] Address: [address] [place] [address] Performed By: #### 5 8410-2 ####[facility]ATORYCLIA [id number] [address] OF [place] MCV (RBC) [Entitic vol] 97.1 fL Normal 80.0-100.0 [facility] Comment on above: Order Comment: Speci men Type: BLOOD SPECIMENOrdering Facility: [facility] Address: [address] [address] Performed By: #### 5 8410-2 ####[facility]ORATORYCLIA [id number] [address] [place] Nucleated RBC (Bld) [#/Vol] 10*3/uL Normal <0.01 [facility] Comment on above: Order Comment: Speci men Type: BLOOD SPECIMENOrdering Facility: [facility] Address: [address] [place] [address] Performed By: #### 5 8410-2 ####[facility]ORATORYCLIA [id number] [address] [place] Platelet mean volume (Bld) [Entitic vol] 9.2 fL Normal 9.0-12.7 [facility] Comment on above: Order Comment: Speci men Type: BLOOD SPECIMENOrdering Facility: [facility] Address: [address] [place] [address] Performed By: #### 5 8410-2 ####[facility]ORATORYCLIA [id number] [address] [place] Platelets (Bld) [#/Vol] 236 10*3/uL Normal 150-400 [facility] Comment on above: Order Comment: Speci men Type: BLOOD SPECIMENOrdering Facility: [facility] Address: [address] Performed By: #### 5 8410-2 ####[facility]ORATORYCLIA [id number] [address] [place] RBC (Bld) [#/Vol] 3.40 10*6/uL Low 4.20-6.00 [facility] Comment on above: Order Comment: Speci men Type: BLOOD SPECIMENOrdering Facility: [facility] Address: [address] [place] [address] Performed By: #### 5 8410-2 ####[facility]ORATORYCLIA [id number] [place] [address] [place] WBC (Bld) [#/Vol] 28.06 10*3/uL High 3.70-11.00 [facility] Comment on above: Order Comment: Speci men Type: BLOOD SPECIMENOrdering Facility: [facility] Address: [facility] [place] [address] Performed By: #### 5 8410-2 ####[facility] LABORATORYCLIA [id number] [place] [id number] [facility] CNPNon 09-21-2021 CNPN Telephone (UROLWS) -- RADHA BRENNAN ([id number]) 1955 M Date Time Provider Department 09/21/21 MATT VILLEGAS During your visit today, we recorded the following information about you: Jess Cifuentes 09/21/2021 12:10 PM Signed ----- Message from Matt Villegas PA-C sent at 09/18/2021 9:45 AM EDT ----- No infection in the urine Matt Villegas [facility] [place] Cifuentes 09/21/2021 12:11 PM Signed Left detailed message to inform. Jess Cifuentes Allergies As of Date: 09/21/2021 Noted Allergy Reaction TUBERCULIN, PURIFIED PROTEIN DERI*06/25/2021 7 - Swelling VENOM-HONEY BEE 06/25/2021 7 - Swelling Comments: Actually black and yellow bumble bees per pt Date Reviewed: 09/21/2021 Reviewed by: Huyen Maier, MASTER - Fully Assessed Reason for Visit: Results [...] Mixed hyperlipidemia [E78.2] 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*09/15/2021 Encounter Status:Closed by JESS CIFUENTES on 09/21/21 Normal [facility] CONSULTon 09-21-2021 CONSULT HNO ID: [id number] Author: Thai Peter MD Service: Critical Care [...] D2 in 2018 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 IJE67-22 was 58%. 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 Normal [facility] Fibrinogen PPP-mCncon 2021 Fibrinogen Coag (PPP) [Mass/Vol] 179 mg/dL Low 200-400 [facility] Comment on above: Order Comment: Speci men Type: BLOOD SPECIMENOrdering Facility: [facility] Address: [address] [place] [address] Performed By: #### 3 255-7, 49681-8 ####[facility]ORATORYCLIA [id number] [place] [address] [place] Magnesium SerPl-mCncon 09-21 Magnesium [Mass/Vol] 2.4 mg/dL High 1.7-2.3 [facility] Comment on above: Order Comment: Speci men Type: BLOOD SPECIMENOrdering Facility: [facility] Address: [address] [place] [address] Performed By: #### 2 4321-2, 58172-5 ####[facility]ORATORYCLIA [id number] [address] STATES OF [facility] OPERATIVE NOon 09-21-2021 OPERATIVE NO HNO ID: [id number] Author: Gregorio Dominguez MD Service: Cardiac Surgery Author Type: Physician Type: Operative Report Filed: 09/21/2021 1:39 PM Note Text: [facility] CARDIO-THORACICSURGERY OPERATIVE/PROCEDURE REPORT LOG ID: [id number] SURGERY/PROCEDURE DATE: 09/21/2021 INCISION/PROCEDURE START TIME: 8:54 AM INCISION CLOSE/PROCEDURE END TIME: 1:32 PM SURGEON(S)/PROCEDURALIST(S ) AND DRIVE AWAY DRIVER(S): Surgeon(s) and Role: * Gregorio Dominguez MD - Primary Physician Medical Typist: Tami Luna PA-C Certified Green Building Engineer: Prosper Moon SA ANESTHESIA: General CTS OP [...] to side diagonal 1 Left ABBEY: Skeletonized Whitman Technique: Direct vision (open) Right ABBEY: Skeletonized Whitman Technique: Direct vision (open) Vein(s) Harvested: Left leg greater saphenous Whitman Technique: Endoscopic POST-BYPASS: Aortic Occlusion: Aortic cross clamp PACING WIRES: None CHEST TUBES/DRAINS: Left chest tube, Right chest tube and Mediastinal chest tube CLOSURE: Routine with sternal wires POST-PROCEDURE DETAILS: Sponge/Instrument/Needle Counts: Final Counts Correct Estimated Blood Loss: 250 mL of shed blood was preserved by cardiopulmonary bypass pump and the cell saver. Specimens: None SURGEON/DRIVE AWAY DRIVER PARTICIPATION: The primary Surgeon/Proceduralist performed the procedure with assistance. No qualified Resident/Fellow was available. Traffic Expert: opened and closed Second Assist: opened, closed and harvested graft Grafts Harvested: left greater saphenous OTHER FINDINGS/DETAILS: Prosper Moon SA, language assistant: Tasks: assisted with opening, closing, retracting, suturing DEYSI Gay, second assist, Tasks: assisted with opening, closing, retracting, suturing harvested saphenous vein COMPLETED BY: Gregorio Dominguez MD PATIENT NAME: Radha Brennan DATE: September 21, 2021 TIME: 1:35 PM AGE: [age] year old Normal [facility] OPERATIVE NO HNO ID: [id number] Author: Gregorio Dominguez MD Service: Cardiac Surgery Author Type: Physician Type: Operative Report Filed: 09/22/2021 1:25 PM Note Text: [facility] - Operative Report RADHA BRENNAN : 1955 AGE: 66. SEX: M PATIENT TYPE: I HOSP SVC: ICU LOCATION: [facility] ATTENDING PHYSICIAN: GREGORIO DOMINGUEZ CSN NUMBER: [id number] DATE OF SURGERY/PROCEDURE: 09/21/2021 INCISION/PROCEDURE START TIME: 10:10 PM INCISION CLOSE/PROCEDURE END TIME: 11:30 PM PREOPERATIVE DIAGNOSIS: Status post coronary artery bypass graft x3, 09/21/2021; postop mediastinal hemorrhage. POSTOPERATIVE DIAGNOSIS: Status post coronary artery bypass graft x3, 09/21/2021; postop mediastinal hemorrhage. SURGEON: Gregorio Dominguez MD DRIVE AWAY DRIVER: DEYSI Turner. She was 1st imaging assistant. She assisted opening, closing, retracting, and [...] but he had ongoing bleeding at a dmvy-by-iqqmzedv level, which led us to indication for [...] no complications. No specimens. Gregorio Dominguez MD JAL:[id number] Normal [facility] OPERATIVE NO HNO ID: [id number] Author: Gregorio Dominguez MD Service: Cardiac Surgery Author Type: Physician Type: Operative Report Filed: 09/22/2021 1:25 PM Note Text: [facility] - Operative Report RADHA BRENNAN Michelle : 1955 AGE: 66. SEX: M PATIENT TYPE: I HOSP SVC: ICU LOCATION: [facility] ATTENDING PHYSICIAN: GREGORIO DOMINGUEZ CSN NUMBER: [id number] DATE OF SURGERY/PROCEDURE: 09/21/2021 INCISION/PROCEDURE START TIME: 10:10 PM INCISION CLOSE/PROCEDURE END TIME: 11:30 PM PREOPERATIVE DIAGNOSIS: Status post coronary artery bypass graft x3, 09/21/2021; postop mediastinal hemorrhage. POSTOPERATIVE DIAGNOSIS: Status post coronary artery bypass graft x3, 09/21/2021; postop mediastinal hemorrhage. SURGEON: Gregorio Dominguez MD DRIVE AWAY DRIVER: DEYSI Turner, which was 1st imaging assistant. She performed assisted with opening, closing, retracting, and suturing, no qualified DICTATION ENDS HERE. SURGERY/PROCEDURE: Exploration of mediastinum; evacuation of left hemothorax; control of arterial bleeding from left ABBEY harvest bed. ANESTHESIA: General Gregorio Dominguez MD JAL:[id number] /[id number] Normal [facility] ORECHOPREon 09-21-2021 ORECHOPRE Echocardiography Rep ort: Intraoperative Echo Pre (GINA) [facility] Date of service: 09/21/2021 9:57:41 PM [facility] Ordering physician: PROSPER ESCALANTE Indication: intraoperative [...] monitoring purposes. prior exam not compared Final [id number] See Link below for Image Normal [facility] ORECHOPRE Echocardiography Rep ort: Intraoperative Echo Pre (GINA) [facility] Date of service: 09/21/2021 7:39:30 AM [facility] Ordering physician: GREGORIO DOMINGUEZ Indication: intraoperative [...] monitoring purposes. prior exam not compared Final [id number] See Link below for Image Normal [facility] PT panel Coag (PPP)on 2021 INR Coag (PPP) [Relative time] 1.1 {INR} Normal 0.9-1.3 [facility] Comment on above: Order Comment: Speci men Type: BLOOD SPECIMENOrdering Facility: [facility] Address: [address] [place] [phone] Result Comment: Maggie min K Antagonist (VKA) Therapeutic Range: INR 2 to 3 (Target INR of 2.5) Note: For patients treated with VKA drugs, such as warfarin, the [employer] 2012 Guideline recommends [...] 2012, 141:7S-47S Jose Angel RA, et al. [facility] 2017, 70: 252-289 Performed By: #### 1 4979-9, 12819-0 ####[facility] LABORATORYCLIA [id number] [place] [address] [place] PT Coag (PPP) [Time] 11.7 s Normal 9.7-13.0 [facility] Comment on above: Order Comment: Speci men Type: BLOOD SPECIMENOrdering Facility: [facility] Address: [facility] [place] [phone] Performed By: #### 1 4979-9, 01613-3 ####[facility] LABORATORYCLIA [id number] [place] [address] [place] XR CHEST 1V FRONTALon [...] relay the message to the patient's physician. Design Analyst: [facility] Transcribe Date/Time: Sep 22 2021 12:58A Dictated by : RACHELLE JOSE MD This examination was interpreted and the report reviewed and electronically signed by: RACHELLE JOSE MD on Sep 21 2021 8:21PM EST This document has been addended by: RACHELLE JOSE MD on Sep 22 2021 1:00AM EST [id number] Normal [facility] XR CHEST 1V FRONTAL * * [...] 2. Trace bilateral apical pneumothoraces. Trace pneumomediastinum. Design Analyst: [facility] Transcribe Date/Time: Sep 21 2021 2:58P Dictated by : RACHELLE JOSE MD This examination was interpreted and the report reviewed and electronically signed by: RACHELLE JOSE MD on Sep 21 2021 3:01PM EST [id number] Normal [facility] aPTT PPPon 09-21-2021 aPTT Coag (PPP) [Time] 33.7 s High 23.0-32.4 [facility] Comment on above: Order Comment: Speci men Type: BLOOD SPECIMENOrdering Facility: [facility] Address: [address] [place] [address] Performed By: #### 3 255-7, 79250-0 ####[facility]ORATORYCLIA [id number] [address] [facility] aPTT Coag (PPP) [Time] 33.3 s High 23.0-32.4 [facility] Comment on above: Order Comment: Speci men Type: BLOOD SPECIMENOrdering Facility: [facility] Address: [address] [place] [address] Performed By: #### 1 4979-9, 11177-1 ####[facility]PITALCLIA [id number] [address] SARS-CoV-2 RNA Resp Ql LATRICE+p robeon 09-18-2021 SARS-CoV-2 (COVID-19) RNA LATRICE+probe Ql (Resp) COVID 19 RESULT: SARS-CoV-2 (Agent of COVID-19) Not Detected by RT-PCR or equivalent method. This test was developed and its performance characteristics determined by [facility] [place]. This test has been authorized by FDA under an Emergency Use Authorization (EUA). This test has been validated in accordance with the FDA's Guidance Document Policy for Diagnostics Testing in Laboratories Certified to Perform High Complexity Testing under CLIA prior to Emergency use Authorization for Coronavirus Disease 2019 during the Public Health Emergency issued on June 02, 2019. Test performed by [facility] [place], [address] [place] [address]. Normal [facility] Comment on above: Performed By: #### T SCR30 #### [facility] CLIA [id number] [address] OF [facility] Bacteria Ur Culton 2 Bacteria identified Cx Nom (U) ORGANISM ID: 1 10,000 -<50,000 CFU/ml Mixed microbiota Normal [facility] Comment on above: Performed By: #### T SCR30 #### [facility] CLIA [id number] [address] [place] [address] STATES OF [facility] CNOVon 09-15-2021 CNOV Office Visit (UROLWS ) -- RADHA BRENNAN ([id number]) 1955 M Date Time Provider Department 09/15/21 1:20 PM MATT VILLEGAS UROLVASQUEZ During your visit today, we recorded the following information about you: Temperature Pulse Respiration Blood pressure 97.8 degrees 86/minute 14/minute 104/64 Weight Height 63.5 kg 1.[address] [facility] 09/15/2021 2:15 PM Signed CC Post Void [...] tolerated the procedure well. Plan: Appointment with Brandon. 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 Normal [facility] UA DIP, URINE (POC)on 2021 BILIRUBIN UA (POCT) Negative Negative [facility] CLARITY UA (POCT) Clear [facility] COLOR UA (POCT) Light yellow [facility] GLUCOSE UA (POCT) Negative Negative mg/dL [facility] HEMOGLOBIN/BLOOD UA (POCT) Small Abnormal Negative [facility] KETONE UA (POCT) Negative Negative mg/dL [facility] LEUKOCYTES UA (POCT) Trace Abnormal Negative [facility] NITRITE UA (POCT) Negative Negative [facility] PH UA (POCT) 6.0 4.5 - 8.0 [facility] Protein Ql (U) Negative Negative mg/dL [facility] SPECIFIC GRAVITY UA (POCT) 1.010 1.005 - 1.030 [facility] UROBILINOGEN UA (POCT) 0.2 E.U./dL Normal E.U./dL [facility] CNPNon 09-14-2021 CNPN Telephone (LAIACC) -- RADHA BRENNAN ([id number]) 1955 M Date Time Provider Department 09/14/21 [...] verbalized understanding. Urology consult placed. Linda Winkler APRN.[employer] Allergies As of Date: 09/14/2021 Noted Allergy Reaction TUBERCULIN, PURIFIED PROTEIN DERI*06/25/2021 7 - Swelling VENOM-HONEY BEE 06/25/2021 7 - Swelling Date Reviewed: 09/13/2021 Reviewed by: Linda Winkler APRN.ODALIS - Fully Assessed Reason for Visit: Results [95] Primary Visit Diagnosis:Hemoglobinuria [R82.3] Order(s):CONSULT TO UROLOGY [9041] Order #: [id number]: 1 Prescriptions as of 09/14/2021 - mupirocin [...] Mixed hyperlipidemia [E78.2] Coronary artery disease involving salam[place] joy* Encounter Status:Closed by LINDA WINKLER CNP on 09/14/21 Normal [facility] CBC panel Auto (Bld)on 09-11 Erythrocyte distribution width (RBC) [Ratio] 12.5 % Normal 11.5-15.0 [facility] Comment on above: Order Comment: Speci men Type: BLOOD SPECIMENOrdering Facility: [facility] Address: [address] [place] [address] Performed By: #### 5 8410-2 ####[facility] LABORATORYCLIA [id number] [place] [address] [place] Hematocrit (Bld) [Volume fraction] 45.7 % Normal 39.0-51.0 [facility] Comment on above: Order Comment: Speci men Type: BLOOD SPECIMENOrdering Facility: [facility] Address: [address] [place] [address] Performed By: #### 5 8410-2 ####[facility]ORATORYCLIA [id number] [address] STATES OF [facility] Hemoglobin (Bld) [Mass/Vol] 14.9 g/dL Normal 13.0-17.0 [facility] Comment on above: Order Comment: Speci men Type: BLOOD SPECIMENOrdering Facility: [facility] Address: [address] [place] [address] Performed By: #### 5 8410-2 ####[facility] LABORATORYCLIA [id number] [address] [place] MCH (RBC) [Entitic mass] 32.1 pg Normal 26.0-34.0 [facility] Comment on above: Order Comment: Speci men Type: BLOOD SPECIMENOrdering Facility: [facility] Address: [address] [place] [address] Performed By: #### 5 8410-2 ####[facility]ORATORYCLIA [id number] [address] MCHC (RBC) [Mass/Vol] 32.6 g/dL Normal 30.5-36.0 [facility] Comment on above: Order Comment: Speci men Type: BLOOD SPECIMENOrdering Facility: [facility] Address: [address] [place] [address] Performed By: #### 5 8410-2 ####[facility]ORATORYCLIA [id number] [address] MCV (RBC) [Entitic vol] 98.5 fL Normal 80.0-100.0 [facility] Comment on above: Order Comment: Speci men Type: BLOOD SPECIMENOrdering Facility: [facility] Address: [address] [place] [address] Performed By: #### 5 8410-2 ####[facility]ORATORYCLIA [id number] [place] [address] [place] Nucleated RBC (Bld) [#/Vol] 10*3/uL Normal <0.01 [facility] Comment on above: Order Comment: Speci men Type: BLOOD SPECIMENOrdering Facility: [facility] Address: [address] [place] [address] Performed By: #### 5 8410-2 ####[facility]ATORYCLIA [id number] [address] [place] Platelet mean volume (Bld) [Entitic vol] 9.6 fL Normal 9.0-12.7 [facility] Comment on above: Order Comment: Speci men Type: BLOOD SPECIMENOrdering Facility: [facility] Address: [address] [place] [address] Performed By: #### 5 8410-2 ####[facility] LABORATORYCLIA [id number] [address] [place] Platelets (Bld) [#/Vol] 341 10*3/uL Normal 150-400 [facility] Comment on above: Order Comment: Speci men Type: BLOOD SPECIMENOrdering Facility: [facility] Address: [address] [place] [address] Performed By: #### 5 8410-2 ####[facility] LABORATORYCLIA [id number] [address] [place] RBC (Bld) [#/Vol] 4.64 10*6/uL Normal 4.20-6.00 [facility] Comment on above: Order Comment: Speci men Type: BLOOD SPECIMENOrdering Facility: [facility] Address: [address] [place] [address] Performed By: #### 5 8410-2 ####[facility] LABORATORYCLIA [id number] [place] [address] [place] WBC (Bld) [#/Vol] 9.76 10*3/uL Normal 3.70-11.00 [facility] Comment on above: Order Comment: Speci men Type: BLOOD SPECIMENOrdering Facility: [facility] Address: [place] [address] Performed By: #### 5 8410-2 ####[facility] LABORATORYCLIA [id number] [place] [address] [facility] CNOVon 09-11-2021 CNOV Office Visit (AGVASA CC) -- BRENNANRADHA MULLINS ([id number]) 1955 M Date Time Provider Department 09/11/21 2:00 PM LINDA WINKLER During your visit today, we recorded the following information about you: Pulse Respiration Blood pressure Weight 68/minute 18/minute 100/68 61.7 kg Height 1.753 m Linda Winkler APRN.[employer] 09/18/2021 5:48 PM Addendum HISTORY and PHYSICAL [...] MEDICAL HISTORY Diagnosis Date - Atherosclerosis of [place]am[place] coronary artery of [place] heart with angina pectoris (HCC) - Atrial septal aneurysm - 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 Normal [facility] Comprehensive metabolic 2000 panelon 09-11-2021 Albumin [Mass/Vol] 4.3 g/dL Normal 3.9-4.9 [facility] Comment on above: Order Comment: Anam perez Type: BLOOD SPECIMENOrdering Facility: [facility] Address: [address] [place] [address] Performed By: #### 2 4323-8 ####[facility] LABORATORYCLIA [id number] [place] [address] [place] ALP [Catalytic activity/Vol] 96 U/L Normal 38-113 [facility] Comment on above: Order Comment: Anam perez Type: BLOOD SPECIMENOrdering Facility: [facility] Address: [address] [place] [address] Performed By: #### 2 4323-8 ####[facility] LABORATORYCLIA [id number] [place] [address] [place] ALT With P-5'-P [Catalytic activity/Vol] 14 U/L Normal 10-54 [facility] Comment on above: Order Comment: Anam perez Type: BLOOD SPECIMENOrdering Facility: [facility] Address: [address] [place] [address] Performed By: #### 2 4323-8 ####[facility] LABORATORYCLIA [id number] [place] [address] [place] Anion gap [Moles/Vol] 9 mmol/L Normal 9-18 [facility] Comment on above: Order Comment: Speci men Type: BLOOD SPECIMENOrdering Facility: [facility] Address: [address] [address] Performed By: #### 2 4323-8 ####[facility] LABORATORYCLIA [id number] [place] [address] [place] AST With P-5'-P [Catalytic activity/Vol] 18 U/L Normal 14-40 [facility] Comment on above: Order Comment: Speci men Type: BLOOD SPECIMENOrdering Facility: [facility] Address: [address] [place] [address] Performed By: #### 2 4323-8 ####[facility] LABORATORYCLIA [id number] [place] [address] [place] Bilirubin [Mass/Vol] 0.5 mg/dL Normal 0.2-1.3 [facility] Comment on above: Order Comment: Speci men Type: BLOOD SPECIMENOrdering Facility: [facility] Address: [address] [place] [address] Performed By: #### 2 4323-8 ####[facility] LABORATORYCLIA [id number] [address] [place] Calcium [Mass/Vol] 9.4 mg/dL Normal 8.5-10.2 [facility] Comment on above: Order Comment: Speci men Type: BLOOD SPECIMENOrdering Facility: [facility] Address: [address] [address] Performed By: #### 2 4323-8 ####[facility] LABORATORYCLIA [id number] [place] [address] [place] Chloride [Moles/Vol] 99 mmol/L Normal 97-105 [facility] Comment on above: Order Comment: Speci men Type: BLOOD SPECIMENOrdering Facility: [facility] Address: [address] [address] Performed By: #### 2 4323-8 ####[facility] LABORATORYCLIA [id number] [place] [address] [place] CO2 [Moles/Vol] 31 mmol/L High 22-30 [facility] Comment on above: Order Comment: Speci men Type: BLOOD SPECIMENOrdering Facility: [facility] Address: [address] [place] [address] Performed By: #### 2 4323-8 ####[facility] LABORATORYCLIA [id number] [address] OF [facility] Creatinine [Mass/Vol] 0.94 mg/dL Normal 0.73-1.22 [facility] Comment on above: Order Comment: Speci men Type: BLOOD SPECIMENOrdering Facility: [facility] Address: [address] [place] [address] Performed By: #### 2 4323-8 ####[facility] LABORATORYCLIA [id number] [address] ESTIMATED GLOMERULAR FILTRATION RATE 89 mL/min/1.73m??? Normal >=60 [facility] Comment on above: Order Comment: Speci men Type: BLOOD SPECIMENOrdering Facility: [facility] Address: [address] [place] [address] Result Comment: Teena mated Glomerular Filtration Rate [...] actual GFR. Performed By: #### 2 4323-8 ####[facility] LABORATORYCLIA [id number] [address] OF [facility] Glucose [Mass/Vol] 88 mg/dL Normal 74-99 [facility] Comment on above: Order Comment: Speci men Type: BLOOD SPECIMENOrdering Facility: [facility] Address: [address] [place] [address] Result Comment: The [place] [employer] (ADA) provides guidance for cutoff [...] Standards of Medical Care in Diabetes 2016, [place] [employer]. Diabetes Care. 2016.39(Suppl 1). Performed By: #### 2 4323-8 ####[facility] LABORATORYCLIA [id number] [place] [address] [place] Potassium [Moles/Vol] 4.2 mmol/L Normal 3.7-5.1 [facility] Comment on above: Order Comment: Speci men Type: BLOOD SPECIMENOrdering Facility: [facility] Address: [address] [place] [address] Performed By: #### 2 4323-8 ####[facility] LABORATORYCLIA [id number] [place] [address] [place] Protein [Mass/Vol] 6.8 g/dL Normal 6.3-8.0 [facility] Comment on above: Order Comment: Speci men Type: BLOOD SPECIMENOrdering Facility: [facility] Address: [address] [address] Performed By: #### 2 4323-8 ####[facility] LABORATORYCLIA [id number] [place] [address] [place] Sodium [Moles/Vol] 139 mmol/L Normal 136-144 [facility] Comment on above: Order Comment: Dereki men Type: BLOOD SPECIMENOrdering Facility: [facility] Address: [address] [address] Performed By: #### 2 4323-8 ####[facility] LABORATORYCLIA [id number] [address] Urea nitrogen [Mass/Vol] 8 mg/dL Low 9-24 [facility] Comment on above: Order Comment: Anam perez Type: BLOOD SPECIMENOrdering Facility: [facility] Address: [address] [place] [address] Performed By: #### 2 4323-8 ####[facility] LABORATORYCLIA [id number] [address] Laboratory - Microbiology an d Antimicrobial susceptibilityon 09-11-2021 S. aureus and MRSA panel LATRICE+probe (Nose) Negative Negative [facility] Magnesium SerPl-mCncon 09-11 Magnesium [Mass/Vol] 2.0 mg/dL Normal 1.7-2.3 [facility] Comment on above: Order Comment: Anam perez Type: BLOOD SPECIMENOrdering Facility: [facility] Address: [address] [place] [address] Performed By: #### 1 9123-9 ####[facility] LABORATORYCLIA [id number] [address] PT panel Coag (PPP)on 2021 INR Coag (PPP) [Relative time] 1.0 {INR} Normal 0.9-1.3 [facility] Comment on above: Order Comment: Anam perez Type: BLOOD SPECIMENOrdering Facility: [facility] Address: [address] [place] [address] Result Comment: Maggie min K Antagonist (VKA) Therapeutic Range: INR 2 to 3 (Target INR of 2.5) Note: For patients treated with VKA drugs, such as warfarin, the [place] [employer] 2012 Guideline recommends [...] 2012, 141:7S-47S Jose Angel RA, et al. [facility] 2017, 70: 252-289 Performed By: #### 3 4528-0 ####[facility] LABORATORYCLIA [id number] [address] [place] PT Coag (PPP) [Time] 10.9 s Normal 9.7-13.0 [facility] Comment on above: Order Comment: Speci men Type: BLOOD SPECIMENOrdering Facility: [facility] Address: [address] [place] [address] Performed By: #### 3 4528-0 ####[facility] LABORATORYCLIA [id number] [address] STAPH AUREUS PCRon 2 S. aureus and MRSA panel LATRICE+probe (Nose) Normal Negative [facility] Comment on above: Order Comment: Speci men Type: SWAB OF INTERNAL NOSEOrdering Facility: [facility] Address: [address] [place] [address] Result Comment: Nega tive for Staphylococcus aureus by PCR. Negative for MRSA by PCR Performed By: #### S APCR ####[facility] LABORATORYCLIA [id number] [address] TYPE AND SCREEN,30 DAYon ABO O Normal [facility] Comment on above: Order Comment: Speci men Type: BLOOD SPECIMENOrdering Facility: [facility] Address: [address] [address] Performed By: #### T SCR30 ####[facility] BLOOD BANKCLIA [id number] [address] HISTORICAL AB SCR STATUS Negative Normal [facility] Comment on above: Order Comment: Speci men Type: BLOOD SPECIMENOrdering Facility: [facility] Address: [address] [address] Performed By: #### T SCR30 ####[facility] BLOOD BANKCLIA [id number] [address] Rh Nom (Bld) Positive Normal [facility] Comment on above: Order Comment: Speci men Type: BLOOD SPECIMENOrdering Facility: [facility] Address: [address] [place] [address] Performed By: #### T SCR30 ####[facility] BLOOD BANKCLIA [id number] [address] Urinalysis complete panel (U )on 09-11-2021 Bilirubin Ql (U) Negative Normal Negative [facility] Comment on above: Order Comment: Speci men Type: URINE SPECIMENOrdering Facility: [facility] Address: [address] [place] [address] Performed By: #### 2 4356-8 ####[facility] LABORATORYCLIA [id number] [address] Clarity (Unsp spec) Clear Normal Clear [facility] Comment on above: Order Comment: Speci men Type: URINE SPECIMENOrdering Facility: [facility] Address: [address] [place] [address] Performed By: #### 2 4356-8 ####[facility] LABORATORYCLIA [id number] [address] Color (U) Light Yellow Normal yellow [facility] Comment on above: Order Comment: Speci men Type: URINE SPECIMENOrdering Facility: [facility] Address: [address] [place] [address] Performed By: #### 2 4356-8 ####[facility] LABORATORYCLIA [id number] [address] Glucose Test strip (U) [Mass/Vol] Negative Normal Negative [facility] Comment on above: Order Comment: Speci men Type: URINE SPECIMENOrdering Facility: [facility] Address: [address] [place] [address] Performed By: #### 2 4356-8 ####[facility] LABORATORYCLIA [id number] [address] Hemoglobin Ql (U) 1+ Abnormal Negative [facility] Comment on above: Order Comment: Speci men Type: URINE SPECIMENOrdering Facility: [facility] Address: [address] [place] [address] Performed By: #### 2 4356-8 ####[facility] LABORATORYCLIA [id number] [address] [facility] Ketones Ql (U) Negative Normal Negative [facility] Comment on above: Order Comment: Speci men Type: URINE SPECIMENOrdering Facility: [facility] Address: [address] [place] [address] Performed By: #### 2 4356-8 ####[facility] LABORATORYCLIA [id number] [address] Leukocyte esterase Test strip Ql (U) Negative Normal Negative [facility] Comment on above: Order Comment: Speci men Type: URINE SPECIMENOrdering Facility: [facility] Address: [address] [place] [address] Performed By: #### 2 4356-8 ####[facility] LABORATORYCLIA [id number] [address] Nitrite Ql (U) Negative Normal Negative [facility] Comment on above: Order Comment: Speci men Type: URINE SPECIMENOrdering Facility: [facility] Address: [address] [place] [address] Performed By: #### 2 4356-8 ####[facility] LABORATORYCLIA [id number] [address] [place] pH (U) 6.0 [pH] Normal 5.0-8.0 [facility] Comment on above: Order Comment: Speci men Type: URINE SPECIMENOrdering Facility: [facility] Address: [address] [place] [address] Performed By: #### 2 4356-8 ####[facility] LABORATORYCLIA [id number] [address] [place] Protein (U) [Mass/Vol] Normal [facility] Comment on above: Order Comment: Speci men Type: URINE SPECIMENOrdering Facility: [facility] Address: [address] [place] [address] Result Comment: Visi ble blood causes falsely elevated results for analyte Protein. Due to this limitation, Protein will not be reported for patients whose urine contains visible blood. Performed By: #### 2 4356-8 ####[facility] LABORATORYCLIA [id number] [place] [address] [place] RBC LM.HPF (Urine sed) [#/Area] 6-10 /HPF Abnormal 0-3 /HPF [facility] Comment on above: Order Comment: Speci men Type: URINE SPECIMENOrdering Facility: [facility] Address: [address] [place] [address] Performed By: #### 2 4356-8 ####[facility] HOSPITALCLIA [id number] [address] [place] Specific gravity (U) [Rel density] 1.008 Normal 1.005-1.030 [facility] Comment on above: Order Comment: Speci men Type: URINE SPECIMENOrdering Facility: [facility] Address: [address] [place] [address] Performed By: #### 2 4356-8 ####[facility] LABORATORYCLIA [id number] [address] Urobilinogen Ql (U) Normal Normal Negative [facility] Comment on above: Order Comment: Speci men Type: URINE SPECIMENOrdering Facility: [facility] Address: [address] [place] [address] Performed By: #### 2 4356-8 ####[facility] LABORATORYCLIA [id number] [place] [address] [place] WBC LM.HPF (Urine sed) [#/Area] 0-5 /HPF Normal 0-5 /HPF [facility] Comment on above: Order Comment: Speci men Type: URINE SPECIMENOrdering Facility: [facility] Address: [address] [place] [address] Performed By: #### 2 4356-8 ####[facility] LABORATORYCLIA [id number] [place] [address] [place] OF [facility] Mike 09-08-2021 CNPN Telephone ([employer]) -- RADHA BRENNAN ([id number]) 1955 M Date Time Provider Department 09/08/21 GREGORIO DOMINGUEZ AGVASACC During your visit today, we recorded the following information about you: Warren Luciano 09/08/2021 9:25 AM Signed Phoned pt regarding new surgery date. CABG 09/21/21 arrival time at 6am procedure time 7:30am at [facility] COVID test 09/18/21 2pm in [place]. Allergies As of Date: 09/08/2021 Noted Allergy [...] Mixed hyperlipidemia [E78.2] Coronary artery disease involving [place]am[place] joy* Encounter Status:Closed by WARREN LUCIANO on 09/08/21 [facility] Telephone (AGVASACC) -- RADHA BRENNAN ([id number]) 1955 M Date Time Provider Department 08/14/21 [...] be drawn while, since pt comes from [place]. COVID test 09/15/21 @ [facility] CABG 09/18/21 arrival time 6am procedure time 7:30am at [facility]. Allergies As of Date: 08/14/2021 Noted Allergy Reaction TUBERCULIN, PURIFIED PROTEIN DERI*06/25/2021 7 - Swelling VENOM-HONEY BEE 06/25/2021 7 - Swelling Date Reviewed: 07/24/2021 Reviewed by: Katherine Constantino RN - Fully Assessed Reason for Visit: Orders [681] Primary Visit Diagnosis:Coronary artery disease involving salam[place]of coronary artery of [place]am[place] heart without angina pectoris [I25.10] Other Visit Diagnosis:Preoperative testing [Z01.818] Order(s):SURGICAL REQUEST - ELECTIVE (11/2019) [8450529] Order #: [id number]: 1 CBC [SQCBC] Order #: [id number] FUTURE COMP METABOLIC PANEL [SQCMP] Order #: [id number] FUTURE PROTHROMBIN TIME/PT [SQPT] Order #: [id number] FUTURE TYPE AND SCREEN,30 DAY [MHWHDD00] Order #: [id number] FUTURE MAGNESIUM BLD [SQMG1] Order #: [id number] FUTURE UA WITH CULTURE IF INDICATED [SQUACII] Order #: [id number] FUTURE Prescriptions as of 08/21/2021 - metoprolol [...] Mixed hyperlipidemia [E78.2] Coronary artery disease involving [place] joy* Encounter Status:Closed by LINDA WINKLER CNP on 08/21/21 [facility] CNOV Office Visit (CR CC) -- RADHA BRENNAN ([id number]) 1955 M Date Time Provider Department 07/24/21 10:00 AM LISET OCAMPO During your visit today, we recorded the following information about you: Linad Winkler APRN.CNP 07/24/2021 10:17 AM Addendum [facility] Pre-Admission Patient Instruction You are scheduled for surgery (inpatient) located on the 2nd Floor on: TuesdayJuly 27 (your surgery date is subject to change should there be emergencies). Come in the Front Doors / Main Entrance of the hospital. No need to stop at front entrance registration. Please check in to the [facility] (2nd Floor) at: 6 AM 1. [...] at home. Remove all make-up and nail taiwanese before admission. We need to check your [...] receive call regarding the test, please call [phone]. Nutritional support/Ensure Drinks Instruction (Please continue eating [...] THAN 5:30 AM, THANKS. Please call office: [phone] if you have additional questions, Thanks. Linda Winkler APRN.[employer] MEMBER 07/24/21 Liset Ocampo APRN.[employer] MEMBER 08/01/2021 1:43 PM Signed No show to pre-op appointment- opened in error. Referring Provider: CLEMENT SWANSON [[id number]] Allergies A (more content not included)... [facility] (AGAltea TherapeuticsACC) -- RADHA BRENNAN ([id number]) 1955 M Date Time Provider Department 07/24/21 GREGORIO DOMINGUEZ [employer] During your visit today, we recorded the [...] Mixed hyperlipidemia [E78.2] Coronary artery disease involving [place]am[place] joy* Encounter Status:Closed by MARQUES CURIEL on 07/24/21 [facility] CNPN Telephone ([employer]) -- RADHA BRENNAN ([id number]) 1955 M Date Time Provider Department 07/24/21 [...] Fully Assessed Reason for Visit: Surgery Cancelled [4163] LMTCB [1226] Prescriptions as of 07/24/2021 - [...] Mixed hyperlipidemia [E78.2] Coronary artery disease involving salamatof joy* Encounter Status:Closed by WARREN LUCIANO on 07/24/21 Normal [facility] CTA CHEST (GATED) W IVCONon 07-23-2021 CTA CHEST (GATED) W IVCON * * *Final Report* * * DATE OF EXAM: Jul 23 2021 2:08PM [facility] [place] CTA CHEST (GATED) W IVCON [...] coronary artery calcifications. 3. Old granulomatous disease. Design Analyst: ISAÍAS Transcribe Date/Time: Jul 23 2021 2:59P Dictated by : RYLAND LENTZ MD This examination was interpreted and the report reviewed and electronically signed by: RYLAND LENTZ MD on Jul 23 2021 4:21PM EST [id number] [facility] CNPCarolyn 07-22-2021 CNPN Telephone (AGTestt) -- RADHA BRENNAN ([id number]) 1955 M Date Time Provider Department 07/22/21 [facility]OR[facility] DOMINGUEZ [facility] During your visit today, we recorded the following information about you: Allergies As of Date: 07/22/2021 Noted Allergy Reaction TUBERCULIN, PURIFIED PROTEIN DERI*06/25/2021 7 - Swelling VENOM-HONEY BEE 06/25/2021 7 - Swelling Date Reviewed: 07/06/2021 Reviewed by: Krunal Mcdonald, (R) - Fully Assessed Reason for Visit: Orders [681] Primary Visit Diagnosis: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.118] Other Visit Diagnoses:Preoperative testing [Z01.818] 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] Order(s):CTA CHEST (GATED) WO/W IVCON [[id number]] Order #: [id number] FUTURE Prescriptions as of 07/22/2021 - clopidogrel [...] Mixed hyperlipidemia [E78.2] Coronary artery disease involving salamatof joy* Encounter Status:Closed by LISET OCAMPO on 07/22/21 Normal [facility] CBC panel Auto (Bld)on 07-21 Erythrocyte distribution width (RBC) [Ratio] 12.6 % Normal 11.5-15.0 [facility] Comment on above: Order Comment: Speci men Type: BLOOD SPECIMEN [facility]ing Facility[facility] Address: [address] [place] [address] Performed By: #### T SCR30 #### [employer] [facility] CLIA [id number] [address] OF [facility] Hematocrit (Bld) [Volume fraction] 43.5 % Normal 39.0-51.0 [facility] Comment on above: Order Comment: Speci men Type: BLOOD SPECIMEN [facility]ing Facility[facility] Address: [address] [place] [address] Performed By: #### T SCR30 #### [facility] CLIA [id number] [address] [place] [address] [place] Hemoglobin (Bld) [Mass/Vol] 14.7 g/dL Normal 13.0-17.0 [facility] Comment on above: Order Comment: Speci men Type: BLOOD SPECIMEN [facility]ing Facility[facility] Address: [address] [place] [address] Performed By: #### T SCR30 #### [facility] CLIA [id number] [address] STATES OF [facility] MCH (RBC) [Entitic mass] 32.8 pg Normal 26.0-34.0 [facility] Comment on above: Order Comment: Speci men Type: BLOOD SPECIMEN [facility]ing Facility: [facility] Address: [address] [place] [address] Performed By: #### T SCR30 #### [facility] CLIA [id number] [address] [place] MCHC (RBC) [Mass/Vol] 33.8 g/dL Normal 30.5-36.0 [facility] Comment on above: Order Comment: Speci men Type: BLOOD SPECIMEN Ordering Facility: [facility] Address: [address] [place] [address] Performed By: #### T [id number] #### [facility] CLIA [id number] [address] [place] [address] [place] MCV (RBC) [Entitic vol] 97.1 fL Normal 80.0-100.0 [facility] Comment on above: Order Comment: Speci men Type: BLOOD SPECIMEN Ordering Facility: [facility] Address: [address] [place] [address] Performed By: #### T [id number] #### [facility] CLIA [id number] [address] OF [place] Nucleated RBC (Bld) [#/Vol] 10*3/uL Normal <0.01 [facility] Comment on above: Order Comment: Speci men Type: BLOOD SPECIMEN Ordering Facility: [facility] Address: [address] [place] [address] Performed By: #### T [id number] #### [facility] [place] [id number] [address] [place] Platelet mean volume (Bld) [Entitic vol] 9.3 fL Normal 9.0-12.7 [facility] Comment on above: Order Comment: Speci men Type: BLOOD SPECIMEN Ordering Facility: [facility] Address: [address] [place] [address] Performed By: #### T [id number] #### [facility] CLIA [id number] [address] [place] [address] [place] Platelets (Bld) [#/Vol] 316 10*3/uL Normal 150-400 [facility] Comment on above: Order Comment: Speci men Type: BLOOD SPECIMEN Ordering Facility: [facility] Address: [address] [place] [address] Performed By: #### T [id number] #### [facility] CLIA [id number] [address] [place] [address] [place] RBC (Bld) [#/Vol] 4.48 10*6/uL Normal 4.20-6.00 [facility] Comment on above: Order Comment: Speci men Type: BLOOD SPECIMEN Ordering Facility: [facility] Address: [address] Performed By: #### T [id number] #### [facility] [id number] [address] WBC (Bld) [#/Vol] 12.48 10*3/uL High 3.70-11.00 [facility] Comment on above: Order Comment: Speci men Type: BLOOD SPECIMEN Ordering Facility: [facility] Address: [address] Performed By: #### T [id number] #### [facility] CLIA [id number] [address] CNPNon 07-21-2021 CNPN Telephone (AKSUR) -- BRENNANRADHA MULLINS ([id number]) 1955 M Date Time Provider Department 07/21/21 GREGORIO DOMINGUEZ During your visit today, we recorded the following information about you: RT Beverly(Bill) 07/21/2021 8:52 AM Signed PT: MikaRadha MR# [id number] RESCHEDULED per Radiologist Dr. LENY RAMOS RADIOLOGIST. Pt needs a CTA GATED CHEST for PRE_OP OPEN HEART, Scan Cannot be done at [facility]. Please put new order for CTA GATED THORAX WITH CONTRAST IN, , HE IS SCHEDULED FOR July 23 PER RADIOLOGIST AT [facility]. Allergies As of Date: 07/21/2021 Noted Allergy Reaction TUBERCULIN, PURIFIED PROTEIN DERI*06/25/2021 7 - Swelling VENOM-HONEY BEE 06/25/2021 7 - Swelling Date Reviewed: 07/06/2021 Reviewed by: RT Moises(R) - Fully Assessed Reason for Visit: CT [...] Mixed hyperlipidemia [E78.2] Coronary artery disease involving salamatof joy* Encounter Status:Closed by WARREN LUCIANO on 09/08/21 Normal [facility] CONFIRM BLOOD TYPEon 022 ABO O Normal [facility] Comment on above: Order Comment: Speci men Type: BLOOD SPECIMEN Ordering Facility: [facility] Address: [address] [place] [address] Performed By: #### C ONABO #### [facility] CLIA [id number] [address] Rh Nom (Bld) Positive Normal [facility] Comment on above: Order Comment: Speci men Type: BLOOD SPECIMEN Ordering Facility: [facility] Address: [address] [place] [address] Performed By: #### C ONABO #### [facility] CLIA [id number] [address] OF [facility] Comprehensive metabolic 2000 panelon 07-21-2021 Albumin [Mass/Vol] 4.2 g/dL Normal 3.9-4.9 [facility] Comment on above: Order Comment: Speci men Type: BLOOD SPECIMEN Ordering Facility: [facility] Address: [address] [place] [address] Performed By: #### T [id number] #### [facility] CLIA [id number] [address] [place] [address] [place] ALP [Catalytic activity/Vol] 105 U/L Normal 38-113 [facility] Comment on above: Order Comment: Speci men Type: BLOOD SPECIMEN Ordering Facility: [facility] Address: [address] [place] [address] Performed By: #### T SCR30 #### [facility] CLIA [id number] [address] [place] [address] [place] ALT [Catalytic activity/Vol] 14 U/L Normal 10-54 [facility] Comment on above: Order Comment: Speci men Type: BLOOD SPECIMEN Ordering Facility: [facility] Address: [address] [place] [address] Performed By: #### T SCR30 #### [facility] CLIA [id number] [address] [place] [address] [place] Anion gap [Moles/Vol] 9 mmol/L Normal 9-18 [facility] Comment on above: Order Comment: Speci men Type: BLOOD SPECIMEN Ordering Facility: [facility] Address: [address] [place] [address] Performed By: #### T SCR30 #### [facility] CLIA [id number] [address] [place] [address] [place] AST [Catalytic activity/Vol] 17 U/L Normal 14-40 [facility] Comment on above: Order Comment: Speci men Type: BLOOD SPECIMEN Ordering Facility: [facility] Address: [address] [place] [address] Performed By: #### T SCR30 #### [facility] CLIA [id number] [address] [place] [address] [place] Bilirubin [Mass/Vol] mg/dL Low 0.2-1.3 [facility] Comment on above: Order Comment: Speci men Type: BLOOD SPECIMEN Ordering Facility: [facility] Address: [address] [place] [address] Performed By: #### T SCR30 #### [facility] CLIA [id number] [address] [place] [address] [place] Calcium [Mass/Vol] 8.8 mg/dL Normal 8.5-10.2 [facility] Comment on above: Order Comment: Speci men Type: BLOOD SPECIMEN Ordering Facility: [facility] Address: [address] [place] [address] Performed By: #### T SCR30 #### [facility] CLIA [id number] 1 [place] [address] [place] Chloride [Moles/Vol] 99 mmol/L Normal 97-105 [facility] Comment on above: Order Comment: Speci men Type: BLOOD SPECIMEN Ordering Facility: [facility] Address: [address] [place] [address] Performed By: #### T SCR30 #### [facility] CLIA [id number] [address] [facility] CO2 [Moles/Vol] 30 mmol/L Normal 22-30 [facility] Comment on above: Order Comment: Speci men Type: BLOOD SPECIMEN Ordering Facility: [facility] Address: [address] [place] [address] Performed By: #### T SCR30 #### [facility] IA [id number] [address] [place] [address] STATES OF [facility] Creatinine [Mass/Vol] 0.90 mg/dL Normal 0.73-1.22 [facility] Comment on above: Order Comment: Speci men Type: BLOOD SPECIMEN Ordering Facility: [facility] Address: [address] [place] [address] Performed By: #### T SCR30 #### [facility] CLIA [id number] [address] ESTIMATED GLOMERULAR FILTRATION RATE 94 mL/min/1.73m??? Normal >=60 [facility] Comment on above: Order Comment: Speci men Type: BLOOD SPECIMEN Ordering Facility: [facility] Address: [address] [place] [address] Result Comment: Teena mated Glomerular Filtration Rate [...] GFR. Performed By: #### T SCR30 #### [facility] CLIA [id number] [address] [place] [address] [place] Glucose [Mass/Vol] 98 mg/dL Normal 74-99 [facility] Comment on above: Order Comment: Speci men Type: BLOOD SPECIMEN Ordering Facility: [facility] Address: [address] [place] [address] Result Comment: The [place] Diabetes Association (ADA) provides guidance for cutoff [...] Standards of Medical Care in Diabetes 2016, [place] [employer] Association. Diabetes Care. 2016.39(Suppl 1). Performed By: #### T SCR30 #### [employer] [facility] CLIA [id number] 1 [place] [address] [place] Potassium [Moles/Vol] 4.3 mmol/L Normal 3.7-5.1 [facility] Comment on above: Order Comment: Dereki chris Type: BLOOD SPECIMEN Ordering Facility: [facility] Address: [address] [place] [address] Performed By: #### T SCR30 #### [facility] CLIA [id number] 1 [place] [address] [place] Protein [Mass/Vol] 6.7 g/dL Normal 6.3-8.0 [facility] Comment on above: Order Comment: Dereki chris Type: BLOOD SPECIMEN Ordering Facility: [facility] Address: [address] [place] [address] Performed By: #### T SCR30 #### [facility] CLIA [id number] 1 [place] [address] [place] Sodium [Moles/Vol] 138 mmol/L Normal 136-144 [facility] Comment on above: Order Comment: Dereki men Type: BLOOD SPECIMEN Ordering Facility: [facility] Address: [address] [place] [address] Performed By: #### T SCR30 #### [facility] CLIA [id number] 1 [place] [address] [place] Urea nitrogen [Mass/Vol] 18 mg/dL Normal 9-24 [facility] Comment on above: Order Comment: Speci men Type: BLOOD SPECIMEN Ordering Facility: [facility] Address: [address] [place] [address] Performed By: #### T SCR30 #### [facility] CLIA [id number] [address] [place] [address] STATES OF [facility] HGB A1Con 07-21-2021 Average glucose Estimated from glycated hemoglobin (Bld) [Mass/Vol] 126 mg/dL Normal [facility] Comment on above: Order Comment: Anam men Type: BLOOD SPECIMEN Ordering Facility: [facility] Address: [address] [place] [address] Result Comment: eAG: (Estimated average glucose) is a calculated value from HgbA1c and is passenger relations representative of the average blood glucose level in the last 2-3 month period. Performed By: #### T SCR30 #### [facility] CLIA [id number] [address] HbA1c (Bld) [Mass fraction] 6.0 % High 4.3-5.6 [facility] Comment on above: Order Comment: Anam chris Type: BLOOD SPECIMEN Ordering Facility: [facility] Address: [address] [place] [address] Result Comment: Amer [place] Diabetes Association guidelines indicate that patients with HgbA1c in the range 5.7-6.4% are at increased risk for development of diabetes, and intervention by lifestyle modification may be beneficial. HgbA1c greater or equal to 6.5% is considered diagnostic of diabetes. Performed By: #### T SCR30 #### [facility] CLIA [id number] [address] OF [facility] Magnesium SerPl-mCncon 07-21 Magnesium [Mass/Vol] 2.0 mg/dL Normal 1.7-2.3 [facility] Comment on above: Order Comment: Anam chris Type: BLOOD SPECIMEN Ordering Facility: [facility] Address: [address] [place] [address] Performed By: #### T SCR30 #### [facility] CLIA [id number] [address] [place] [address] [place] PT panel Coag (PPP)on 2021 INR Coag (PPP) [Relative time] 1.0 {INR} Normal 0.9-1.3 [facility] Comment on above: Order Comment: Anam perez Type: BLOOD SPECIMEN Ordering Facility: [facility] Address: [address] [place], [place] [address] Result Comment: Maggie min K Antagonist (VKA) Therapeutic Range: INR 2 to 3 (Target INR of 2.5) Note: For patients treated with VKA drugs, such as warfarin, the [place] [employer] 2012 Guideline recommends [...] 2012, 141:7S-47S Jose Angel RA, et al. [facility] 2017, 70: 252-289 Performed By: #### T SCR30 #### [facility] IA [id number] [address] [place] [address] STATES OF [facility] PT Coag (PPP) [Time] 10.4 s Normal 9.7-13.0 [facility] Comment on above: Order Comment: Specamy perez Type: BLOOD SPECIMEN Ordering Facility: [facility] Address: [address] [place] [id number] Performed By: #### T SCR30 #### [facility] IA [id number] [address] [place] [address] [place] TSH SerPl-aCncon 07-21-2021 TSH Qn 3.680 m[IU]/L Normal 0.270-4.200 [facility] Comment on above: Order Comment: Speci men Type: BLOOD SPECIMEN Ordering Facility: [facility] Address: [address] [place] [address] Performed By: #### T SCR30 #### [facility] CLIA [id number] [address] TYPE AND SCREEN,30 DAYon ABO O Normal [facility] Comment on above: Order Comment: Speci men Type: BLOOD SPECIMEN Ordering Facility: [facility] Address: [address] [place] [address] Performed By: #### T SCR30 #### [facility] CLIA [id number] [address] HISTORICAL AB SCR STATUS Negative Normal [facility] Comment on above: Order Comment: Speci men Type: BLOOD SPECIMEN Ordering Facility: [facility] Address: [address] [place] [address] Performed By: #### T SCR30 #### [facility] CLIA [id number] [address] Rh Nom (Bld) Positive Normal [facility] Comment on above: Order Comment: Speci men Type: BLOOD SPECIMEN Ordering Facility: [facility] Address: [address] [place] [address] Performed By: #### T SCR30 #### [facility] CLIA [id number] [address] SPIROMETRY BASELINE ONLYon 0 07-16-2021 DLCO (ml/min/mmHg) 20.97 ml/min/mmHg [facility] DLCO/VA (ml/min/mmHg/L) 2.48 ml/min/mmHg/L [facility] VWO03-64% PRE (L/S) 1.42 L/S [facility] FEV1 PRE (L) 3.42 L [facility] FEV1/FVC PRE (%) 0.60 % [facility] FRC Box (L) 6.23 L [facility] FVC PRE (L) 5.67 L [facility] PEF PRE (L/S) 7.07 L/S [facility] RV Box (L) 3.48 L [facility] RV/TLC Box (%) 38 % [facility] TLC Box (L) 9.14 L [facility] VA (L) 8.49 L [facility] CNPNon 07-06-2021 CNPN Telephone (AGVASACC) -- RADHA BRENNAN ([id number]) 1955 M Date Time Provider Department 07/06/21 GREGORIO DOMINGUEZ During your visit today, we recorded the following information about you: Warren Luciano 07/06/2021 2:21 PM Signed Phoned pt regarding future appts. Itinerary mailed to pt's home. 07/16/21 PFT's, Carotid US, CTA Chest @ [facility]. NPO 4 hours, water ok prior to CT scan Preadmission instructions and exam 07/20/21 1pm with Liset Ocampo CNP. Preoperative labs to be drawn on 07/20/21 while in town. No fasting required. Echocardiogram 07/21/21 9:40am [facility] COVID testing 07/24/21 11:30am @ [facility] [place]. CABG 07/27/21 arrival time 6am procedure time 7:30am @ [facility]. Allergies As of Date: 07/06/2021 Noted Allergy [...] Mixed hyperlipidemia [E78.2] Coronary artery disease involving salamatof joy* Encounter Status:Closed by WARREN LUCIANO on 07/06/21 Normal [facility] Absolute lymphocyte counton 06-29-2021 Lymphocytes Auto (Unsp spec) [#/Vol] 3.36 10*3/uL 0.83-4.51 [facility] Work Phone: Basophil percentageon 2021 Basophils/100 WBC (Bld) 0.4 % 0-1 [facility] Work Phone: Bilirubin [Mass/Vol] 0.70 mg/dL 0.20-1.00 [facility] Work Phone: Comment on above: For patients on eltr ombopag therapy, use of Dimension [place] TBIL is not recommended. Chloride [Moles/Vol] 103 mmol/L 98-107 [facility] Work Phone: Eosinophils/100 WBC (Bld) 8.7 % 0-5 [facility] Work Phone: Glucose [Mass/Vol] 111 mg/dL 74-106 [facility] Work Phone: Comment on above: Fasting Glucose resu lt from 100 to 125 mg/dL suggests IMPAIRED HOMEOSTASIS per A.D.A. criteria. Neutrophils (Bld) [#/Vol] 4.2 10*3/uL 2.0-7.7 [facility] Work Phone: Neutrophils/100 WBC (Bld) 45.8 % 47-70 [facility] Work Phone: [phone] Potassium [Moles/Vol] 3.7 mmol/L 3.5-5.1 [facility] Work Phone: Protein [Mass/Vol] 6.5 g/dL 6.4-8.2 [facility] Work Phone: Sodium [Moles/Vol] 139 mmol/L 136-145 [facility] Work Phone: WBC (Bld) [#/Vol] 9.2 10*3/uL 4.4-11.0 [facility] Work Phone: [phone] Blood erythrocytes count (nu mber/volume)on 06-29-2021 RBC (Bld) [#/Vol] 4.23 10*6/uL 4.6-6.2 [facility] Work Phone: Blood hemoglobin measurement (mass/volume)on 06-29-2021 Hemoglobin (Bld) [Mass/Vol] 13.7 g/dL 13.0-16.5 [facility] Work Phone: [phone] Blood lymphocytes/100 leukoc yteson 06-29-2021 Lymphocytes/100 WBC (Bld) 36.6 % 19-41 [facility] Work Phone: Blood monocytes/100 leukocyt eson 06-29-2021 Monocytes/100 WBC (Bld) 8.3 % 0-10 [facility] Work Phone: Blood platelet mean volumeon 06-29-2021 Platelet mean volume (Bld) [Entitic vol] 9.2 fL 6.2-12.0 [facility] Work Phone: Determination of erythrocyte mean corpuscular volume (MCV)on 06-29-2021 MCV (RBC) [Entitic vol] 95.5 fL 80-94 [facility] Work Phone: Hematocrit Auto (Bld) [Volum e fraction]on 06-29-2021 Hematocrit (Bld) [Volume fraction] 40.4 % 40-54 [facility] Work Phone: Laboratory - Chemistry and C hemistry - challengeon 06-29-2021 ALP [Catalytic activity/Vol] 92 U/L 45-117 [facility] Work Phone: ALT [Catalytic activity/Vol] 17 U/L 16-61 [facility] Work Phone: CO2 [Moles/Vol] 29.0 mmol/L 21.0-32.0 [facility] Work Phone: Globulin (S) [Mass/Vol] 3.2 g/dL 2.2-4.2 [facility] Work Phone: Urea nitrogen/Creatinine [Mass ratio] 9.4 mg/mg 10-20 [facility] Work Phone: Laboratory - Hematology and Cell countson 06-29-2021 Erythrocyte distribution width (RBC) [Entitic vol] 45.0 fL 35.1-43.9 [facility] Work Phone: Erythrocyte distribution width (RBC) [Ratio] 12.7 % 11.6-14.6 [facility] Work Phone: Immature granulocytes/100 WBC (Bld) 0.200 % 0.0-0.9 [facility] Work Phone: Comment on above: IG% - Immature Granu locytes (promyelocytes, myelocytes and metamyelocytes) > 1% indicates that a LEFT SHIFT is Present. MCH (RBC) [Entitic mass] 32.4 pg 27.0-32.0 [facility] Work Phone: Nucleated RBC/100 WBC (Bld) [Ratio] 0 % 0-5 [facility] Work Phone: MCHC Auto (RBC) [Mass/Vol]on 06-29-2021 MCHC (RBC) [Mass/Vol] 33.9 g/dL 32-36 [facility] Work Phone: No Panel Informationon 06-29 Estimated Creatinine Clearance Calc 61.13 ml/min [facility] Work Phone: Estimated GFR (MDRD) Amer 90 mL/min >60 [facility] Work Phone: Comment on above: GFR Calc Estimated GFR (MDRD) Non-Af Amer 74 mL/min >60 [facility] Work Phone: Comment on above: Non- GFR Calc Troponin I High Sensitivity < 3 pg/mL 3.0-78.0 [facility] Work Phone: Comment on above: Please Note: New Renay t Units and Gender Specific Reference Ranges. For more information see Policy Stat Procedure [place] High Sensitivity Troponin (TNIH) and attachments. Platelets bldon 06-29-2021 Platelets (Bld) [#/Vol] 289 10*3/uL 150-450 [facility] Work Phone: Serum or plasma albumin sadi urement (mass/volume)on 06-29-2021 Albumin [Mass/Vol] 3.3 g/dL 3.2-5.0 [facility] Work Phone: Serum or plasma albumin/glob ulin mass ratioon 06-29-2021 Albumin/Globulin [Mass ratio] 1.0 {ratio} 0.9-2.4 [facility] Work Phone: Serum or plasma calcium sadi urement (mass/volume)on 06-29-2021 Calcium [Mass/Vol] 8.4 mg/dL 8.5-10.1 [facility] Work Phone: Serum or plasma creatinine m easurement (mass/volume)on 06-29-2021 Creatinine [Mass/Vol] 1.06 mg/dL 0.70-1.30 [facility] Work Phone: Comment on above: The validity of the calculated GFR & GFRAA in patients over 70 years has not been determined. Clinical correlation is essential. Serum or plasma urea nitroge n measurement (mass/volume)on 06-29-2021 Urea nitrogen [Mass/Vol] 10 mg/dL 7-18 [facility] Work Phone: Thin prep Papanicolaou smear with manual screeningon 06-29-2021 Thin prep Papanicolaou smear with manual screening 11 U/L 15-37 [facility] Work Phone: Thin prep Papanicolaou smear with manual screening 7 5-15 [facility] Work Phone: CNOVon 06-25-2021 CNOV Office Visit (AGVASA CC) -- RADHA BRENNAN ([id number]) 1955 M Date Time Provider Department 06/25/21 [...] SIGNATURE: Soraya Flores LPN PATIENT NAME: Radha Irelandler DATE: June 25, 2021 TIME: 10:58 AM PAGER/CONTACT #: [id number] Forrest Lott APRN.CNP 06/25/2021 11:58 AM Signed [facility] Adult Cardiac [...] mild luminal irregularities An echo performed in 2019 showed largely well preserved left ventricular function [...] MEDICAL HISTORY Diagnosis Date - Atherosclerosis of salamatof coronary artery of salamatof heart with angina pectoris (HCC) - Atrial septal aneurysm - 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.118] Other Visit Diagnoses:Preoperative testing [Z01.818] 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] Cerebrovascular accident (CVA), unspecified mechanism (HCC) [I63.9] Order(s):SURGICAL REQUEST - ELECTIVE (11/2019) [[id number]] Order #: [id number]: 1 CBC [SQCBC] Order #: [id number] FUTURE COMP METABOLIC PANEL [SQCMP] Order #: [id number] FUTURE PROTHROMBIN TIME/PT [SQPT] Order #: [id number] FUTURE PRE-PROCEDURE AND PRE-OPERATIVE COVID [SQPOCOVD] Order #: [id number] FUTURE TYPE AND SCREEN,30 DAY [PRKKSO75] Order #: [id number] FUTURE HGB A1C [KZRQV9M] Order #: [id number] FUTURE MAGNESIUM BLD [SQMG1] Order #: [id number] FUTURE TSH BLD [SQTSH] Order #: [id number] FUTURE UA WITH CULTURE IF INDICATED [SQUACII] Order #: [id number] FUTURE CONFIRM BLOOD TYPE [SQCONABO] Order #: [id number] FUTURE Prescriptions as of 06/30/2021 - clopidogrel [...] Mixed hyperlipidemia [E78.2] Coronary artery disease involving salamatof joy* Encounter Status:Closed by FORREST LOTT on 06/26/21 [facility] Mike 06-03-2021 CNPN Telephone (AGVASACC) -- RADHA BRENNAN ([id number]) 1955 M Date Time Provider Department 06/03/21 GREGORIO DOMINGUEZ During your visit today, we [...] Mixed hyperlipidemia [E78.2] Coronary artery disease involving salamatof joy* Encounter Status:Closed by VERO HA on 06/03/21 Normal [facility] Absolute lymphocyte counton 04-17-2021 Lymphocytes Auto (Unsp spec) [#/Vol] 3.22 10*3/uL 0.83-4.51 [facility] Work Phone: Basophil percentageon 2021 Basophils/100 WBC (Bld) 0.7 % 0-1 [facility] Work Phone: Chloride [Moles/Vol] 102 mmol/L 98-[address] [facility] Work Phone: Eosinophils/100 WBC (Bld) 4.7 % 0-5 [facility] Work Phone: Glucose [Mass/Vol] 122 mg/dL 74-106 [place] [facility] Work Phone: Comment on above: Fasting Glucose resu lt from 100 to 125 mg/dL suggests IMPAIRED HOMEOSTASIS per A.D.A. criteria. Neutrophils (Bld) [#/Vol] 4.7 10*3/uL 2.0-7.7 [facility] Work Phone: Neutrophils/100 WBC (Bld) 51.5 % 47-70 [facility] Work Phone: Potassium [Moles/Vol] 4.1 mmol/L 3.5-5.1 [facility] Work [facility]: Sodium [Moles/Vol] 137 mmol/L 136-145 [facility] Work Phone: WBC (Bld) [#/Vol] 9.1 10*3/uL 4.4-11.0 [facility] Work Phone: Blood erythrocytes count (nu mber/volume)on 04-17-2021 RBC (Bld) [#/Vol] 4.38 10*6/uL 4.6-6.[facility]: Blood hemoglobin measurement (mass/volume)on 04-17-2021 Hemoglobin (Bld) [Mass/Vol] 14.1 g/dL 13.0-16.5 [facility] Work Phone: Blood lymphocytes/100 leukoc yteson 04-17-2021 Lymphocytes/100 WBC (Bld) 35.3 % 19-41 [facility] Work Phone: Blood monocytes/100 leukocyt eson 04-17-2021 Monocytes/100 WBC (Bld) 7.6 % 0-10 [facility] Work Phone: Blood platelet mean volumeon 04-17-2021 Platelet mean volume (Bld) [Entitic vol] 9.1 fL 6.2-12.0 [facility] Work Phone: Determination of erythrocyte mean corpuscular volume (MCV)on 04-17-2021 MCV (RBC) [Entitic vol] 97.5 fL 80-94 [facility] Work Phone: Hematocrit Auto (Bld) [Volum e fraction]on 04-17-2021 Hematocrit (Bld) [Volume fraction] 42.7 % 40-54 [facility] Work Phone: INR in Blood by Coagulation assayon 04-17-2021 INR Coag (Bld) [Relative time] 1.1 {INR} [facility] Work Phone: Laboratory - Chemistry and C hemistry - challengeon 04-17-2021 CO2 [Moles/Vol] 31.0 mmol/L 21.0-32.0 [facility] Work Phone: Urea nitrogen/Creatinine [Mass ratio] 15.5 mg/mg 10-20 [facility] Work Phone: Laboratory - Coagulationon 0 04-17-2021 aPTT Coag (Bld) [Time] 30.5 s 24.1-36.2 [facility] Work Phone: PT Coag (PPP) [Time] 13.3 s 11.7-14.9 [facility] Work Phone: Laboratory - Hematology and Cell countson 04-17-2021 Erythrocyte distribution width (RBC) [Entitic vol] 46.0 fL 35.1-43.9 [facility] Work Phone: Erythrocyte distribution width (RBC) [Ratio] 12.8 % 11.6-14.6 [facility] Work Phone: Immature granulocytes/100 WBC (Bld) 0.200 % 0.0-0.9 [facility] Work Phone: Comment on above: IG% - Immature Granu locytes (promyelocytes, myelocytes and metamyelocytes) > 1% indicates that a LEFT SHIFT is Present. MCH (RBC) [Entitic mass] 32.2 pg 27.0-32.0 [facility] Work Phone: Nucleated RBC/100 WBC (Bld) [Ratio] 0 % 0-5 [facility] Work Phone: MCHC Auto (RBC) [Mass/Vol]on 04-17-2021 MCHC (RBC) [Mass/Vol] 33.0 g/dL 32-36 [facility] Work Phone: No Panel Informationon 04-17 Estimated GFR (MDRD) Amer 93 mL/min >60 [facility] Work Phone: Comment on above: GFR Calc Estimated GFR (MDRD) Non-Af Amer 77 mL/min >60 [facility] Work Phone: Comment on above: Non- GFR Calc Platelets bldon 04-17-2021 Platelets (Bld) [#/Vol] 328 10*3/uL 150-450 [facility] Work Phone: Serum or plasma calcium sadi urement (mass/volume)on 04-17-2021 Calcium [Mass/Vol] 8.2 mg/dL 8.5-10.1 [facility] Work Phone: Serum or plasma creatinine m easurement (mass/volume)on 04-17-2021 Creatinine [Mass/Vol] 1.03 mg/dL 0.70-1.30 [facility] Work Phone: Comment on above: The validity of the calculated GFR & GFRAA in patients over 70 years has not been determined. Clinical correlation is essential. Serum or plasma urea nitroge n measurement (mass/volume)on 04-17-2021 Urea nitrogen [Mass/Vol] 16 mg/dL 7-18 [facility] Work Phone: Thin prep Papanicolaou smear with manual screeningon 04-17-2021 Thin prep Papanicolaou smear with manual screening 4 5-15 [facility] Work Phone: VAS LAB Carotid Artery Dupl ex Ultrasounon 06-02-2017 VAS LAB Carotid Artery Duplex Ultrasoun [facility], [address] [place] [address] and Vascular Lab Report Carotid Artery Duplex Ultrasound Patient Name: TAHIR FREEMAN Reading Physician: [id number] Merritt MDStudy Date: 06/02/2017 Referring Physician: Jose Antonio Mcgee MDMRN/PID: [id number] PCP:Accession/Order#: [id number] CC Report to:Date of : 1955 Technologist: Sophia RIVERender: Maria M Technologist 2:Admission Status: Outpatient Location Performed: [facility] Diagnosis/ICD: R09.89-Other specified symptoms and signs involving the circulatory and respiratory systemsProcedure/CPT: 36848 Cerebrovacular Carotid Duplex scan complete CONCLUSIONS:Right Carotid: [...] thickening plaque. Right Left PSV EDV PSV [id number] cm/s CCA P 94 cm/s69 cm/s CCA D 76 cm/s68 cm/s 15 cm/s ICA P 28 cm/s 9 cm/s91 cm/s 36 cm/s ICA M 73 cm/s 28 cm/s89 cm/s 35 cm/s ICA D 62 cm/s 26 cm/s50 cm/s ECA 55 cm/s75 cm/s 23 cm/s Vertebral 42 cm/s 13 cm/s110 cm/s Subclavian 125 cm/s Right LeftICA/CCA Ratio 1.0 0.4 [id number] Jackelyn Merritt MD Final Normal [facility] MISCELLANEOUS TESTon 018 MISCELLANEOUS SEE BELOW Normal [facility] Comment on above: Result Comment: TEST RESULT UNITS REFERENCE RANGEACE, CSF HIGH 2.7 U/L 0.0 - 2.5 This test was developed and its performance characteristicsdetermined by [employer]. The U.S. Food and DrugAdministration has not approved or cleared this test;however, FDA clearance or approval is not currentlyrequired for clinical use. The results are not intended bijan used as the sole means for clinical diagnosis or patientmanagement decisions.Performed by [facility],[address] [place] [address] gzz.Paxer, Sumeet Nichols MD - Lab. DirectorTest Performed by:[facility] [place] [address] Performed By: #### M G ####[facility] [place] [address] CRYPTOCOCCAL AG, QUALon 04-05 CRYPTOCOCCAL AG, QUAL Negative Normal Negative [facility] Comment on above: Performed By: #### M G ####[facility] [place] [address] CBC AND DIFFERENTIALon 04-30 % AUTOMATED IMMATURE GRAN 0.3 % Normal 0.0 - 0.9 [facility] Comment on above: Result Comment: Perc ent differential counts (%) should be interpreted in the context of the absolute cell counts (cells/L). Performed By: #### C OAGS ####[facility] [place] [address] % NEUTROPHIL 57.8 % Normal 40.0 - 80.0 [facility] Comment on above: Performed By: #### C OAGS ####[facility] [place] [address] Basophils/100 WBC Auto (Bld) 0.6 % Normal 0.0 - 2.0 [facility] Comment on above: Performed By: #### C OAGS ####[facility] [place] [address] Basophils/100 WBC Auto (Bld) 0.04 x10E9/L Normal 0.00 - 0.10 [facility] Comment on above: Performed By: #### C OAGS ####[facility] [place] [address] Eosinophils 0.39 10*3/uL Normal 0.00 - 0.70 [facility] Comment on above: Performed By: #### C OAGS ####[facility] [place] [address] Eosinophils/100 leukocytes 6.0 % Normal 0.0 - 6.0 [facility] Comment on above: Performed By: #### C OAGS ####[facility] [place] [address] Erythrocyte distribution width Auto Ratio (RBC) 13.0 % Normal 11.5 - 14.5 [facility] Comment on above: Performed By: #### C OAGS ####[facility] [place] [address] Erythrocytes (RBC) 4.55 x10E12/L Normal 4.50 - 5.90 [facility] Comment on above: Performed By: #### C OAGS ####[facility] [place] [address] Hematocrit (HCT) 41.7 % Normal 41.0 - 52.0 [facility] Comment on above: Performed By: #### C OAGS ####[facility] [place] [address] Hemoglobin mass conc (Bld) 14.1 g/dL Normal 13.5 - 17.5 [facility] Comment on above: Performed By: #### C OAGS ####[facility] [place] [address] Lymphocytes 1.68 10*3/uL Normal 1.20 - 4.80 [facility] Comment on above: Performed By: #### C OAGS ####[facility] [place] [address] Lymphocytes/100 leukocytes 25.9 % Normal 13.0 - 44.0 [facility] Comment on above: Performed By: #### C OAGS ####[facility] [place] [address] MCHC mass conc (RBC) 33.8 g/dL Normal 32.0 - 36.0 [facility] Comment on above: Performed By: #### C OAGS ####[facility] [place] [address] MCV 92 fL Normal 80 - 100 [facility] Comment on above: Performed By: #### C OAGS ####[facility] [place] [address] Monocytes 0.61 10*3/uL Normal 0.10 - 1.00 [facility] Comment on above: Performed By: #### C OAGS ####[facility] [place] [address] Monocytes/100 leukocytes 9.4 % Normal 2.0 - 10.0 [facility] Comment on above: Performed By: #### C OAGS ####[facility] [place] [address] Neutrophils 3.75 10*3/uL Normal 1.20 - 7.70 [facility] Comment on above: Performed By: #### C OAGS ####[facility] [place] [address] Nucleated erythrocytes 0.0 /100 WBC Normal 0.0-0.0 [facility] Comment on above: Performed By: #### C OAGS ####[facility] [place] [address] Platelets 261 10*3/uL Normal 150 - 450 [facility] Comment on above: Performed By: #### C OAGS ####[facility] [place] [address] WBC (Leukocytes) 6.5 10*3/uL Normal 4.4 - 11.3 [facility] Comment on above: Performed By: #### C OAGS ####[facility] [place] [address] Discharge Summaryon 04-30-19 18 Discharge Summary Send Summary:Dischar ge Summary Providers:Provider Role Provider Name? Referring Joe Rey? Primary Unknown, Pcp? Attending Joe Rey Recipients: Joe Rey MD Unknown, Pcp, QUINN NARANJO ANTHONY JOHNDischarge:Summary:Admi ssion Date: .27-Apr-2017 02:11:00Discharge Date: [id number] Physician at Discharge: Joe Rey AAdmission Reason: Seizure, AMS(1)Final Discharge Diagnoses: Remote history of stroke, Seizure,Procedures: Date: 27-Apr-2017 10:18:00Procedure Name: Lumbar punctureCondition at Discharge: SatisfactoryDisposition at Discharge: .HomeVital Signs: T P R BP TcC1Uviqd 37 66 16 123/69 95%Date/Time 04/30 6:40 [...] Date/Time: 15-Jun-2017 13:00 Location: Neurology Clinic, 5th Floor [facility], [address] [place] [address] [phone] Appointment 02: Physician/Dept/Service: Dr. Jose Antonio Mcgee - Neurology/Stroke Reason for Referral: Prior Stroke Scheduled Date/Time: 02-Jun-2017 09:00 Location: Neurology Clinic, 5th Floor [facility], [address] [place] [address] discharge Medications: Home Medication aspirin 81 mg [...] - Pending: NoneSignature/Cosignature/ Attestation:Provider/Team Contact Info-Pager Number [phone] Attestation I saw and evaluated the patient. [...] patient (as noted in the above attestation) [id number] Signatures:Joe Rey () (Signed 30-Apr-2017 15:23) Authored: Summary Content, Ongoing Care, Signature/Cosignature/Atte station Co-Signer: Summary Content, Ongoing Care, Signature/Cosignature/Atte stationProsper Constantino (Resident)) (Signed 30-Apr-2017 14:24) Authored: Send Summary, Summary Content, Ongoing Care,Signature/Cosignature /AttestationLast Updated: 30-Apr-2017 15:23 by Joe Rey ()References:1. Data Referenced From Consult-Infectious Disease 29-Apr-2017 10:33 AM Normal [facility] H. INFLUENZA B AB, IGGon H. INFLUENZA B AB, IGG 0.0 ug/mL Normal [facility] Comment on above: Result Comment: INTE RPRETIVE [...] a non-responder.Test developed and characteristics determined by [employer]. See Compliance Statement B: P[employer]/CSPerformed by [facility],[address] [place] [phone] xqx.Paxer, Sumeet Nichols MD - Lab. Director Performed By: #### C OAGS ####[facility] [place] [address] MAGNESIUMon 04-30-2017 Magnesium 1.96 mg/dL Normal 1.60 - 2.40 [facility] Comment on above: Performed By: #### C OAGS ####[facility] [place] [address] RENAL FUNCTION PANELon 04-30 Albumin 3.6 g/dL Normal 3.4 - 5.0 [facility] Comment on above: Performed By: #### C OAGS ####[facility] [place] [address] Anion gap 11 mmol/L Normal 10 - 20 [facility] Comment on above: Performed By: #### C OAGS ####[facility] [place] [address] Bicarbonate (HCO3) 27 mmol/L Normal 21 - 32 [facility] Comment on above: Performed By: #### C OAGS ####[facility] [place] [address] Calcium 9.0 mg/dL Normal 8.6 - 10.6 [facility] Comment on above: Performed By: #### C OAGS ####[facility] [place] [address] Chloride 105 mmol/L Normal 98 - 107 [facility] Comment on above: Performed By: #### C OAGS ####[facility] [place] [address] Creatinine 0.79 mg/dL Normal 0.50 - 1.30 [facility] Comment on above: Performed By: #### C OAGS ####[facility] [place] [address] eGFR (non-black) mL/min/{1.73_m2} Normal >60 [facility] Comment on above: Result Comment: CALC ULATIONS OF ESTIMATED GFR ARE PERFORMED USING THE MDRD STUDY EQUATION FOR THE IDMS-TRACEABLE CREATININE METHODS. CLIN CHEM 2007;53:766-72 Performed By: #### C OAGS ####[facility] [place] [address] Glucose mass conc 108 mg/dL High 74 - 99 [facility] Comment on above: Performed By: #### C OAGS ####[facility] [place] [address] Phosphate 3.2 mg/dL Normal 2.5 - 4.9 [facility] Comment on above: Result Comment: The performance characteristics of phosphorus testing in heparinized plasma have been validated by the individual laboratory site where testing is performed. Testing on heparinized plasma is not approved by the FDA; however, such approval is not necessary. Performed By: #### C OAGS ####[facility] [place] [address] Potassium molar conc 4.2 mmol/L Normal 3.5 - 5.3 [facility] Comment on above: Performed By: #### C OAGS ####[facility] [place] [address] Sodium 139 mmol/L Normal 136 - 145 [facility] Comment on above: Performed By: #### C OAGS ####[facility] [place] [address] Urea nitrogen 12 mg/dL Normal 6 - 23 [facility] Comment on above: Performed By: #### C OAGS ####[facility] [place] [address] ADENOVIRUS DNA PCR, QUANT (N ON-BLOOD SPECIMEN)on 04-29-2017 ADENOVIRUS qPCR Not Detected Normal Not Detected [facility] Comment on above: Result Comment: Assa y Range: 109 copies/mL to 6u80x66 copies/mLExpected Value: Not DetectedThe limit of quantitation (LOQ) is 109 copies/mL.Adenovirus DNA detected below the LOQ will be reported asDetected:-<109 copies/mL.This test was developed and its performancecharacteristics determined by [employer] [employer]. It has notbeen cleared or approved by the U.S. Food and DrugAdministration.-Results should be used in conjunction withclinical findings, and should not form the sole basis fora diagnosis or treatment decision.PCR tests are performed pursuant to a license agreementwith [employer]. ____Performed At:[facility] [employer] Systems DriveBaskin's [place] [address]YgtewttzSophia Sethi PhD HCLD (ABB)CLIA# [id number] Performed By: #### C NICHOLAS ####[facility] [place] [address] CBC AND DIFFERENTIALon 04-29 % AUTOMATED IMMATURE GRAN 0.5 % Normal 0.0 - 0.9 [facility] Comment on above: Result Comment: Perc ent differential counts (%) should be interpreted in the context of the absolute cell counts (cells/L). Performed By: #### E MRAD ####NO LOCATION NEEDED % NEUTROPHIL 62.4 % Normal 40.0 - 80.0 [facility] Comment on above: Performed By: #### E MRAD ####NO LOCATION NEEDED Basophils/100 WBC Auto (Bld) 0.6 % Normal 0.0 - 2.0 [facility] Comment on above: Performed By: #### E MRAD ####NO LOCATION NEEDED Basophils/100 WBC Auto (Bld) 0.04 x10E9/L Normal 0.00 - 0.10 [facility] Comment on above: Performed By: #### E MRAD ####NO LOCATION NEEDED Eosinophils 0.36 10*3/uL Normal 0.00 - 0.70 [facility] Comment on above: Performed By: #### E MRAD ####NO LOCATION NEEDED Eosinophils/100 leukocytes 5.5 % Normal 0.0 - 6.0 [facility] Comment on above: Performed By: #### E MRAD ####NO LOCATION NEEDED Erythrocyte distribution width Auto Ratio (RBC) 13.2 % Normal 11.5 - 14.5 [facility] Comment on above: Performed By: #### E MRAD ####NO LOCATION NEEDED Erythrocytes (RBC) 4.38 x10E12/L Low 4.50 - 5.90 [facility] Comment on above: Performed By: #### E MRAD ####NO LOCATION NEEDED Hematocrit (HCT) 41.5 % Normal 41.0 - 52.0 [facility] Comment on above: Performed By: #### E MRAD ####NO LOCATION NEEDED Hemoglobin mass conc (Bld) 13.7 g/dL Normal 13.5 - 17.5 [facility] Comment on above: Performed By: #### E MRAD ####NO LOCATION NEEDED Lymphocytes 1.38 10*3/uL Normal 1.20 - 4.80 [facility] Comment on above: Performed By: #### E MRAD ####NO LOCATION NEEDED Lymphocytes/100 leukocytes 21.3 % Normal 13.0 - 44.0 [facility] Comment on above: Performed By: #### E MRAD ####NO LOCATION NEEDED MCHC mass conc (RBC) 33.0 g/dL Normal 32.0 - 36.0 [facility] Comment on above: Performed By: #### E MRAD ####NO LOCATION NEEDED MCV 95 fL Normal 80 - 100 [facility] Comment on above: Performed By: #### E MRAD ####NO LOCATION NEEDED Monocytes 0.63 10*3/uL Normal 0.10 - 1.00 [facility] Comment on above: Performed By: #### E MRAD ####NO LOCATION NEEDED Monocytes/100 leukocytes 9.7 % Normal 2.0 - 10.0 [facility] Comment on above: Performed By: #### E MRAD ####NO LOCATION NEEDED Neutrophils 4.05 10*3/uL Normal 1.20 - 7.70 [facility] Comment on above: Performed By: #### E MRAD ####NO LOCATION NEEDED Nucleated erythrocytes 0.0 /100 WBC Normal 0.0-0.0 [facility] Comment on above: Performed By: #### E MRAD ####NO LOCATION NEEDED Platelets 256 10*3/uL Normal 150 - 450 [facility] Comment on above: Performed By: #### E MRAD ####NO LOCATION NEEDED WBC (Leukocytes) 6.5 10*3/uL Normal 4.4 - 11.3 [facility] Comment on above: Performed By: #### E MRAD ####NO LOCATION NEEDED CELL CT,CSF PATH REVIEWon PATH REVIEW-CSF ANAT Normal [facility] Comment on above: Result Comment: By h er/his signature above, the Pathologist listed as making the final interpretation certifies that she/he has personally reviewed this case. FREQUENT NEUTROPHILS. NO DEFINITIVE MICROORGANISMS SEEN.CORRELATION WITH MICROBIOLOGIC STUDIES SUGGESTED. Performed By: #### E MRAD ####NO LOCATION NEEDED PATH REVIEW-CSF ANAT Normal [facility] Comment on above: Result Comment: By h er/his signature above, the Pathologist listed as making the final interpretation certifies that she/he has personally reviewed this case. FREQUENT NEUTROPHILS. NO DEFINITIVE MICROORGANISMS SEEN.CORRELATION WITH MICROBIOLOGIC STUDIES SUGGESTED. Performed By: #### E MRAD ####NO LOCATION NEEDED CMV DNA PCR, QUANT (NON-BLOO D SPECIMEN)on 04-29-2017 CMV PCR,QUANT PCR Not Detected Normal Not Detected [facility] Comment on above: Result Comment: Assa y Range: 142 IU/mL to 1.06c96y3 IU/mLExpected Value: Not DetectedAs of July 24, 2012 results for quantitative CMV testingare resulted in International Units (IU).-One IU is equalto 0.53 copies of CMV.The limit of quantitation (LOQ) is 142 IU/mL.- CMV DNAdetected below the LOQ will be reported as Detected: <142IU/mL.This test was developed and its performancecharacteristics determined by [facility]. It has notbeen cleared or approved by the U.S. Food and DrugAdministration.-Results should be used in conjunction withclinical findings, and should not form the sole basis fora diagnosis or treatment decision.PCR tests are performed pursuant to a license agreementwith [employer]. ____Performed At:[facility] [place] [address]SajsgeswSophia Sethi PhD HCLD (ABB)CLIA# [id number] Performed By: #### C OAGS ####[facility] [place] [address] EBV DNA PCR, QUANT (NON-BLOO D SPECIMEN)on 04-29-2017 EBV qPCR Not Detected Normal Not Detected [facility] Comment on above: Result Comment: Assa y Range: 52 IU/mL to 1.11b10w8 IU/mLExpected Value: Not DetectedAs of July 24, 2012 results for quantitative EBV testingare resulted in International Units (IU).-One IU is equalto 0.59 copies of EBV.The limit of quantitation (LOQ) is 52 IU/mL.- EBV DNAdetected below the LOQ will be reported as Detected: <52IU/mL.This test was developed and its performancecharacteristics determined by [facility]. It has notbeen cleared or approved by the U.S. Food and DrugAdministration.-Results should be used in conjunction withclinical findings, and should not form the sole basis fora diagnosis or treatment decision.PCR tests are performed pursuant to a license agreementwith [employer]. ____Performed At:[facility] [place] [address]WxrjohzdSophia Sethi PhD HCLD (ABB)CLIA# [id number] Performed By: #### C OAGS ####[address] [place] [address] ENTEROVIRUS PCR,CSFon 2017 ENTEROVIRUS PCR,CSF NOT DETECTED Normal Not Detected [facility] Comment on above: Result Comment: W ITH [...] MRAD ####NO LOCATION NEEDED Echocardiogramon 04-29-2017 Echocardiogram [facility], [address] [place] [address] and [id number] ECHOCARDIOGRAM REPORT Patient Name: RADHA BRENNAN Jacky Physician: [id number] Ken Mitchell MDStudy Date: 04/29/2017 Referring Joe Rey MD Physician:MRN/PID: [id number] PCP:Accession/Order#: [id number] [facility] Non Location: InvasiveDate of : 1955 Fellow:Gender: M Nurse:Admit Date: 04/27/2017 Machine I Engraver: Tootie Mccoy RDCSAdmission Status: Inpatient - Additional Staff: RoutineHeight: 177.80 cm CC Report to: Heidy T4 [facility] CenterWeight: 67.59 kg Study Type: EchocardiogramBSA: 1.84 m3Flvyq Pressure: 120 /76 mmHgDiagnosis/ICD: I63.8 Other cerebral infarctionIndication: strokeProcedure/CPT: Echo Complete w/Full Doppler (09914)Patient History: No pertinent past medical history.Study Detail: [...] 18.6 cm2LA Area A2C: 20.3 cm2LA [place] A4C: 5.9 cmLA [place] A2C: 5.3 cmLA Volume Index: 32.8 ml/m2RA VOLUME BY A/L METHOD: Normal Ranges:RA Area A4C: 16.6 [id number] MEASUREMENTS: Normal Ranges:Ao Root: 3.30 cm (2.0-3.7cm)LAs: [...] S/D Manjinder: 1.40PulmV Sys Manjinder: 66.50 cm/s [id number] Ken Mitchell MDElectronically signed on 04/29/2017 at 5:03:56 PM Final Normal [facility] GLUCOSE-POCTon 04-29-2017 Glucose mass conc 125 mg/dL High 74 - 99 [facility] Comment on above: Performed By: #### E MRAD ####NO LOCATION NEEDED Glucose mass conc 88 mg/dL Normal - 99 [facility] Comment on above: Performed By: #### E MRAD ####NO LOCATION NEEDED Glucose mass conc 104 mg/dL High 74 - 99 [facility] Comment on above: Performed By: #### E MRAD ####NO LOCATION NEEDED HHV-6 DNA PCR, QUANT (NON-BL OOD SPECIMEN)on 04-29-2017 HHV-6 PCR Not Detected Normal Not Detected [facility] Comment on above: Result Comment: Assa y Range: 81 copies/mL to 1x10e8 copies/mLExpected Value: Not DetectedThe limit of quantitation (LOQ) is 81 copies/mL.- HHV-6DNA detected below the LOQ will be reported as Detected:<81 copies/mL.This test was developed and its performancecharacteristics determined by [employer]. It has notbeen cleared or approved by the U.S. Food and DrugAdministration.-Results should be used in conjunction withclinical findings, and should not form the sole basis fora diagnosis or treatment decision.PCR tests are performed pursuant to a license agreementwith [employer]. ____Performed At:[facility] [place] [address]HgfqcntdSophia Sehti PhD HCLD (ABB)CLIA# [id number] Performed By: #### C OAGS ####[facility] [place] [address] LYME ABS, CSFon 04-29-2017 LYME ABS, CSF Canceled Normal [facility] Comment on above: Order Comment: TEST LYME ABS, CSF WAS CANCELLED, 04/29/2017 12:57 QNS, PLEASE RESUBMIT.. Performed By: #### E MRAD ####NO LOCATION NEEDED MAGNESIUMon 04-29-2017 Magnesium 1.93 mg/dL Normal 1.60 - 2.40 [facility] Comment on above: Performed By: #### E MRAD ####NO LOCATION NEEDED OLIGOCLONAL BANDINGon 2017 Albumin Canceled Normal [facility] Comment on above: Order Comment: TEST OLIGOCLONAL BANDING WAS CANCELLED, 04/29/2017 12:56 QNS, PLEASERESUBMIT.. Performed By: #### E MRAD ####NO LOCATION NEEDED ALBUMIN, CSF Canceled Normal [facility] Comment on above: Order Comment: TEST OLIGOCLONAL BANDING WAS CANCELLED, 04/29/2017 12:56 QNS, PLEASERESUBMIT.. Performed By: #### E MRAD ####NO LOCATION NEEDED CSF IGG SYNTHESIS RATE Canceled Normal [facility] Comment on above: Order Comment: TEST OLIGOCLONAL BANDING WAS CANCELLED, 04/29/2017 12:56 QNS, PLEASERESUBMIT.. Performed By: #### E MRAD ####NO LOCATION NEEDED CSF OLIGOCLONAL BANDS Canceled Normal [facility] Comment on above: Order Comment: TEST OLIGOCLONAL BANDING WAS CANCELLED, 04/29/2017 12:56 QNS, PLEASERESUBMIT.. Performed By: #### E MRAD ####NO LOCATION NEEDED Globulin Canceled Normal [facility] Comment on above: Order Comment: TEST OLIGOCLONAL BANDING WAS CANCELLED, 04/29/2017 12:56 QNS, PLEASERESUBMIT.. Performed By: #### E MRAD ####NO LOCATION NEEDED IGG INDEX Canceled Normal [facility] Comment on above: Order Comment: TEST OLIGOCLONAL BANDING WAS CANCELLED, 04/29/2017 12:56 QNS, PLEASERESUBMIT.. Performed By: #### E MRAD ####NO LOCATION NEEDED IMMUNOGLOBULIN G,CSF Canceled Normal [facility] Comment on above: Order Comment: TEST OLIGOCLONAL BANDING WAS CANCELLED, 04/29/2017 12:56 QNS, PLEASERESUBMIT.. Performed By: #### E MRAD ####NO LOCATION NEEDED INR Coag RelTime (Bld) Canceled Normal [facility] Comment on above: Order Comment: TEST OLIGOCLONAL BANDING WAS CANCELLED, 04/29/2017 12:56 QNS, PLEASERESUBMIT.. Performed By: #### E MRAD ####NO LOCATION NEEDED INTERPRETATION Canceled Normal [facility] Comment on above: Order Comment: TEST OLIGOCLONAL BANDING WAS CANCELLED, 04/29/2017 12:56 QNS, PLEASERESUBMIT.. Performed By: #### E MRAD ####NO LOCATION NEEDED OLIGOCLONAL BANDS NO.CSF Canceled Normal [facility] Comment on above: Order Comment: TEST OLIGOCLONAL BANDING WAS CANCELLED, 04/29/2017 12:56 QNS, PLEASERESUBMIT.. Performed By: #### E MRAD ####NO LOCATION NEEDED RENAL FUNCTION PANELon 04-29 Albumin 3.5 g/dL Normal 3.4 - 5.0 [facility] Comment on above: Performed By: #### E MRAD ####NO LOCATION NEEDED Anion gap 13 mmol/L Normal 10 - 20 [facility] Comment on above: Performed By: #### E MRAD ####NO LOCATION NEEDED Bicarbonate (HCO3) 25 mmol/L Normal 21 - 32 [facility] Comment on above: Performed By: #### E MRAD ####NO LOCATION NEEDED Calcium 8.7 mg/dL Normal 8.6 - 10.6 [facility] Comment on above: Performed By: #### E MRAD ####NO LOCATION NEEDED Chloride 105 mmol/L Normal 98 - 107 [facility] Comment on above: Performed By: #### E MRAD ####NO LOCATION NEEDED Creatinine 0.81 mg/dL Normal 0.50 - 1.30 [facility] Comment on above: Performed By: #### E MRAD ####NO LOCATION NEEDED eGFR (non-black) mL/min/{1.73_m2} Normal >60 [facility] Comment on above: Performed By: #### E MRAD ####NO LOCATION NEEDED Result Comment: CALC ULATIONS OF ESTIMATED GFR ARE PERFORMED USING THE MDRD STUDY EQUATION FOR THE IDMS-TRACEABLE CREATININE METHODS. CLIN CHEM 2007;53:766-72 Glucose mass conc 108 mg/dL High 74 - 99 [facility] Comment on above: Performed By: #### E MRAD ####NO LOCATION NEEDED Phosphate 3.4 mg/dL Normal 2.5 - 4.9 [facility] Comment on above: Result Comment: The performance characteristics of phosphorus testing in heparinized plasma have been validated by the individual laboratory site where testing is performed. Testing on heparinized plasma is not approved by the FDA; however, such approval is not necessary. Performed By: #### E MRAD ####NO LOCATION NEEDED Potassium molar conc 4.0 mmol/L Normal 3.5 - 5.3 [facility] Comment on above: Performed By: #### E MRAD ####NO LOCATION NEEDED Sodium 139 mmol/L Normal 136 - 145 [facility] Comment on above: Performed By: #### E MRAD ####NO LOCATION NEEDED Urea nitrogen 17 mg/dL Normal 6 - 23 [facility] Comment on above: Performed By: #### E MRAD ####NO LOCATION NEEDED VANCOMYCIN,TROUGHon 04-29-19 18 VANCOMYCIN,TROUGH 12.3 ug/mL Normal 5.0 - 20.0 [facility] Comment on above: Result Comment: Vanc omycin [...] 04-29 VZV DNA BY PCR Canceled Normal [facility] Comment on above: Order Comment: TEST VZV DNA BY PCR, QUAL WAS CANCELLED, 04/29/2017 12:56 QNS, PLEASERESUBMIT.. Performed By: #### E MRAD ####NO LOCATION NEEDED CBC AND DIFFERENTIALon 04-28 % AUTOMATED IMMATURE GRAN 0.3 % Normal 0.0 - 0.9 [facility] Comment on above: Result Comment: Perc ent differential counts (%) should be interpreted in the context of the absolute cell counts (cells/L). Performed By: #### C OAGS ####[facility] [place] [address] % NEUTROPHIL 69.1 % Normal 40.0 - 80.0 [facility] Comment on above: Performed By: #### C OAGS ####[facility] [place] [address] Basophils/100 WBC Auto (Bld) 0.5 % Normal 0.0 - 2.0 [facility] Comment on above: Performed By: #### C OAGS ####[facility] [place] [address] Basophils/100 WBC Auto (Bld) 0.04 x10E9/L Normal 0.00 - 0.10 [facility] Comment on above: Performed By: #### C OAGS ####[facility] [place] [address] Eosinophils 0.12 10*3/uL Normal 0.00 - 0.70 [facility] Comment on above: Performed By: #### C OAGS ####[facility] [place] [address] Eosinophils/100 leukocytes 1.4 % Normal 0.0 - 6.0 [facility] Comment on above: Performed By: #### C OAGS ####[facility] [place] [address] Erythrocyte distribution width Auto Ratio (RBC) 13.2 % Normal 11.5 - 14.5 [facility] Comment on above: Performed By: #### C OAGS ####[facility] [place] [address] Erythrocytes (RBC) 4.43 x10E12/L Low 4.50 - 5.90 [facility] Comment on above: Performed By: #### C OAGS ####[facility] [place] [address] Hematocrit (HCT) 42.0 % Normal 41.0 - 52.0 [facility] Comment on above: Performed By: #### C OAGS ####[facility] [place] [address] Hemoglobin mass conc (Bld) 13.8 g/dL Normal 13.5 - 17.5 [facility] Comment on above: Performed By: #### C OAGS ####[facility] [place] [address] Lymphocytes 1.70 10*3/uL Normal 1.20 - 4.80 [facility] Comment on above: Performed By: #### C OAGS ####[facility] [place] [address] Lymphocytes/100 leukocytes 19.7 % Normal 13.0 - 44.0 [facility] Comment on above: Performed By: #### C OAGS ####[facility] [place] [address] MCHC mass conc (RBC) 32.9 g/dL Normal 32.0 - 36.0 [facility] Comment on above: Performed By: #### C OAGS ####[facility] [place] [address] MCV 95 fL Normal 80 - 100 [facility] Comment on above: Performed By: #### C OAGS ####[facility] [place] [address] Monocytes 0.78 10*3/uL Normal 0.10 - 1.00 [facility] Comment on above: Performed By: #### C OAGS ####[facility] [place] [address] Monocytes/100 leukocytes 9.0 % Normal 2.0 - 10.0 [facility] Comment on above: Performed By: #### C OAGS ####[facility] [place] [address] Neutrophils 5.95 10*3/uL Normal 1.20 - 7.70 [facility] Comment on above: Performed By: #### C OAGS ####[facility] [place] [address] Nucleated erythrocytes 0.0 /100 WBC Normal 0.0-0.0 [facility] Comment on above: Performed By: #### C OAGS ####[facility] [place] [address] Platelets 263 10*3/uL Normal 150 - 450 [facility] Comment on above: Performed By: #### C OAGS ####[facility] [place] [address] WBC (Leukocytes) 8.6 10*3/uL Normal 4.4 - 11.3 [facility] Comment on above: Performed By: #### C OAGS ####[facility] [place] [address] COAGULATION SCREENon 018 aPTT 29 s Normal 25 - 36 [facility] Comment on above: Result Comment: THE APTT IS NO LONGER USED FOR MONITORING UNFRACTIONATED HEPARIN THERAPY. FOR MONITORING HEPARIN THERAPY, USE THE HEPARIN ASSAY. Performed By: #### E MRAD ####NO LOCATION NEEDED INR Coag RelTime (PPP) 1.0 {INR} Normal 0.9 - 1.1 [facility] Comment on above: Performed By: #### E MRAD ####NO LOCATION NEEDED Prothrombin time (PT) Coag time (PPP) 11.5 s Normal 9.8 - 12.7 [facility] Comment on above: Performed By: #### E MRAD ####NO LOCATION NEEDED GLUCOSE-POCTon 04-28-2017 Glucose mass conc 94 mg/dL Normal 74 - 99 [facility] Comment on above: Performed By: #### E MRAD ####NO LOCATION NEEDED Glucose mass conc 91 mg/dL Normal 74 - 99 [facility] Comment on above: Performed By: #### C OAGS ####[facility] [place] [address] HEMOGLOBIN A1Con 04-28-2017 Glucose mass conc 126 mg/dL Normal [facility] Comment on above: Performed By: #### E MRAD ####NO LOCATION NEEDED Hemoglobin A1c/Hemoglobin.total mass fraction (Bld) 6.0 % Normal [facility] Comment on above: Result Comment: Diag nosis of Diabetes-Adults Non-Diabetic: < or = 5.6% Increased risk for developing diabetes: 5.7-6.4% Diagnostic of diabetes: > or = 6.5%. Monitoring of Diabetes Age (y) Therapeutic Goal (%) Adults: >18 <7.0 Pediatrics: 13-18 <7.5 7-12 <8.0 0- 6 7.5-8.5 [employer]. Diabetes Care 33(S1), Apr 2009. Performed By: #### E MRAD ####NO LOCATION NEEDED Glucose mass conc 128 mg/dL Normal [facility] Comment on above: Performed By: #### E MRAD ####NO LOCATION NEEDED Hemoglobin A1c/Hemoglobin.total mass fraction (Bld) 6.1 % Normal [facility] Comment on above: Result Comment: Diag nosis of Diabetes-Adults Non-Diabetic: < or = 5.6% Increased risk for developing diabetes: 5.7-6.4% Diagnostic of diabetes: > or = 6.5%. Monitoring of Diabetes Age (y) Therapeutic Goal (%) Adults: >18 <7.0 Pediatrics: 13-18 <7.5 7-12 <8.0 0- 6 7.5-8.5 [place]. Diabetes Care 33(S1), Apr 2009. Performed By: #### E MRAD ####NO LOCATION NEEDED LIPID PANEL (CORONARY RISK 2 )on 04-28-2017 Cholesterol 210 mg/dL High 0 - 199 [facility] Comment on above: Result Comment: . AG [...] conc 27 mg/dL Normal 0 - 40 [facility] Comment on above: Performed By: #### E MRAD ####NO LOCATION NEEDED Cholesterol to HDL Ratio 5.1 {ratio} Abnormal [facility] Comment on above: Result Comment: REF VALUESDESIRABLE < 3.4HIGH RISK > 5.0 Performed By: #### E MRAD ####NO LOCATION NEEDED HDL Cholesterol 40.9 mg/dL Normal [facility] Comment on above: Result Comment: . AG E VERY LOW LOW NORMAL HIGH 0-19 Y < 35 < 40 40-45 ---- 20-24 Y ---- < 40 >45 ---- >24 Y ---- < 40 40-60 >60. Performed By: #### E MRAD ####NO LOCATION NEEDED LDL Cholesterol 142 mg/dL High 0 - 99 [facility] Comment on above: Result Comment: . TRACY BAÑUELOS AGE DESIRABLE OPTIMAL HIGH HIGH VERY HIGH 0-19 Y 0 - 109 --- 110-129 >/= 130 ---- 20-24 Y 0 - 119 --- 120-159 >/= 160 ---- >24 Y 0 - 99 100-129 130-159 160-189 >/=190. Performed By: #### E MRAD ####NO LOCATION NEEDED Triglyceride 134 mg/dL Normal 0 - 149 [facility] Comment on above: Result Comment: . AG [...] Magnesium 2.11 mg/dL Normal 1.60 - 2.40 [facility] Comment on above: Performed By: #### C OAGS ####[facility] [place] [address] RENAL FUNCTION PANELon 04-28 Albumin 3.8 g/dL Normal 3.4 - 5.0 [facility] Comment on above: Performed By: #### E MRAD ####NO LOCATION NEEDED Anion gap 9 mmol/L Low 10 - 20 [facility] Comment on above: Performed By: #### E MRAD ####NO LOCATION NEEDED Bicarbonate (HCO3) 31 mmol/L Normal 21 - 32 [facility] Comment on above: Performed By: #### E MRAD ####NO LOCATION NEEDED Calcium 8.7 mg/dL Normal 8.6 - 10.6 [facility] Comment on above: Performed By: #### E MRAD ####NO LOCATION NEEDED Chloride 101 mmol/L Normal 98 - 107 [facility] Comment on above: Performed By: #### E MRAD ####NO LOCATION NEEDED Creatinine 0.86 mg/dL Normal 0.50 - 1.30 [facility] Comment on above: Performed By: #### E MRAD ####NO LOCATION NEEDED eGFR (non-black) mL/min/{1.73_m2} Normal >60 [facility] Comment on above: Result Comment: CALC ULATIONS OF ESTIMATED GFR ARE PERFORMED USING THE MDRD STUDY EQUATION FOR THE IDMS-TRACEABLE CREATININE METHODS. CLIN CHEM 2007;53:766-72 Performed By: #### E MRAD ####NO LOCATION NEEDED Glucose mass conc 95 mg/dL Normal 74 - 99 [facility] Comment on above: Performed By: #### E MRAD ####NO LOCATION NEEDED Phosphate 3.2 mg/dL Normal 2.5 - 4.9 [facility] Comment on above: Result Comment: The performance characteristics of phosphorus testing in heparinized plasma have been validated by the individual laboratory site where testing is performed. Testing on heparinized plasma is not approved by the FDA; however, such approval is not necessary. Performed By: #### E MRAD ####NO LOCATION NEEDED Potassium molar conc 4.2 mmol/L Normal 3.5 - 5.3 [facility] Comment on above: Performed By: #### E MRAD ####NO LOCATION NEEDED Sodium 137 mmol/L Normal 136 - 145 [facility] Comment on above: Performed By: #### E MRAD ####NO LOCATION NEEDED Urea nitrogen 21 mg/dL Normal 6 - 23 [facility] Comment on above: Performed By: #### E MRAD ####NO LOCATION NEEDED TROPONIN Ion 04-28-2017 Troponin I.cardiac mass conc 0.09 ng/mL High 0.00 - 0.03 [facility] Comment on above: Result Comment: LESS THAN 0.04 NG/ML: NEGATIVEREPEAT TESTING IN FOUR TO SIX HOURSIF CLINICALLY INDICATED.0.04 - 0.5 NG/ML: CONSISTENT WITH POSSIBLECARDIAC DAMAGE AND POSSIBLE INCREASEDCLINICAL RISK.SERIAL MEASUREMENTS MAY HELP ASSESS EXTENT OFMYOCARDIAL DAMAGE.>0.5 NG/ML: CONSISTENT WITH CARDIAC DAMAGE,INCREASED CLINICAL RISK AND MYOCARDIALINFARCTION. SERIAL MEASUREMENTS MAY HELPASSESS EXTENT OF MYOCARDIAL DAMAGE..Note: Troponin I testing is performed using differenttesting methodology at [facility] than at [facility]. Direct result comparisons should onlybe made within the same method.. Patients receiving more than 5 mg/day of biotin may have interference in test results. A sample should be taken no sooner than eight hours after previous dose. Contact [phone] for additional information. Performed By: #### C OAGS ####[facility] [place] [address] BLOOD CULTURE, BACTERIALon 0 04-27-2017 BLOOD CULTURE, BACTERIAL PATIENT: TAHIR FREEMAN LOCATION: [address]#: [id number] : 53 AGE: SEX: M ORDERED BY: ZI QURESHI: Blood COLLECTED: 04/27/17 10:10ANTIBIOTICS AT [place].: RECEIVED : 04/27/17 11:51SITE: right forearm PERIPHERAL R E S U L T S BLOOD CULTURE, BACTERIAL FINAL 05/02/17 13:42 No Growth at 1 days No Growth at 2 days No Growth at 3 days No Growth at 4 days NO GROWTH - FINAL REPORT Normal [facility] Comment on above: Performed By: #### M G ####[facility] [place] [address] BLOOD CULTURE, BACTERIAL PATIENT: TAHIR FREEMAN LOCATION: [address]#: [id number] : 53 AGE: SEX: M ORDERED BY: ZI QURESHI: Blood COLLECTED: 04/27/17 10:09ANTIBIOTICS AT [place].: RECEIVED : 04/27/17 11:49SITE: left forearm PERIPHERAL R E S U L T S BLOOD CULTURE, BACTERIAL FINAL 05/02/17 13:42 No Growth at 1 days No Growth at 2 days No Growth at 3 days No Growth at 4 days NO GROWTH - FINAL REPORT Normal [facility] Comment on above: Performed By: #### M G ####[facility] [place] [address] CBCon 04-27-2017 Erythrocyte distribution width Auto Ratio (RBC) 13.3 % Normal 11.5 - 14.5 [facility] Comment on above: Performed By: #### M G ####[facility] [place] [address] Erythrocytes (RBC) 4.51 x10E12/L Normal 4.50 - 5.90 [facility] Comment on above: Performed By: #### M G ####[facility] [place] [address] Hematocrit (HCT) 42.4 % Normal 41.0 - 52.0 [facility] Comment on above: Performed By: #### M G ####[facility] [place] [address] Hemoglobin mass conc (Bld) 14.0 g/dL Normal 13.5 - 17.5 [facility] Comment on above: Performed By: #### M G ####[facility] [place] [address] MCHC mass conc (RBC) 33.0 g/dL Normal 32.0 - 36.0 [facility] Comment on above: Performed By: #### M G ####[facility] [place] [address] MCV 94 fL Normal 80 - 100 [facility] Comment on above: Performed By: #### M G ####[facility] [place] [address] Nucleated erythrocytes 0.0 /100 WBC Normal 0.0-0.0 [facility] Comment on above: Performed By: #### M G ####[facility] [place] [address] Platelets 283 10*3/uL Normal 150 - 450 [facility] Comment on above: Performed By: #### M G ####[facility] [place] [address] WBC (Leukocytes) 11.1 10*3/uL Normal 4.4 - 11.3 [facility] Comment on above: Performed By: #### M G ####[facility] [place] [address] CBC AND DIFFERENTIALon 04-27 % AUTOMATED IMMATURE GRAN 0.4 % Normal 0.0 - 0.9 [facility] Comment on above: Result Comment: Perc ent differential counts (%) should be interpreted in the context of the absolute cell counts (cells/L). Performed By: #### C BCDF ####[facility] [place] [address] % NEUTROPHIL 85.0 % Normal 40.0 - 80.0 [facility] Comment on above: Performed By: #### C BCDF ####[facility] [place] [address] Basophils/100 WBC Auto (Bld) 0.1 % Normal 0.0 - 2.0 [facility] Comment on above: Performed By: #### C BCDF ####[facility] [place] [address] Basophils/100 WBC Auto (Bld) 0.02 x10E9/L Normal 0.00 - 0.10 [facility] Comment on above: Performed By: #### C BCDF ####[facility] [place] [address] Eosinophils 0.02 10*3/uL Normal 0.00 - 0.70 [facility] Comment on above: Performed By: #### C BCDF ####[facility] [place] [address] Eosinophils/100 leukocytes 0.1 % Normal 0.0 - 6.0 [facility] Comment on above: Performed By: #### C BCDF ####[facility] [place] [address] Erythrocyte distribution width Auto Ratio (RBC) 13.3 % Normal 11.5 - 14.5 [facility] Comment on above: Performed By: #### C BCDF ####[facility] [place] [address] Erythrocytes (RBC) 4.45 x10E12/L Low 4.50 - 5.90 [facility] Comment on above: Performed By: #### C BCDF ####[facility] [place] [address] Hematocrit (HCT) 41.9 % Normal 41.0 - 52.0 [facility] Comment on above: Performed By: #### C BCDF ####[facility] [place] [address] Hemoglobin mass conc (Bld) 14.1 g/dL Normal 13.5 - 17.5 [facility] Comment on above: Performed By: #### C BCDF ####[facility] [place] [address] Lymphocytes 1.19 10*3/uL Low 1.20 - 4.80 [facility] Comment on above: Performed By: #### C BCDF ####[facility] [place] [address] Lymphocytes/100 leukocytes 8.8 % Low 13.0 - 44.0 [facility] Comment on above: Performed By: #### C BCDF ####[facility] [place] [address] MCHC mass conc (RBC) 33.7 g/dL Normal 32.0 - 36.0 [facility] Comment on above: Performed By: #### C BCDF ####[facility] [place] [address] MCV 94 fL Normal 80 - 100 [facility] Comment on above: Performed By: #### C BCDF ####[facility] [place] [address] Monocytes 0.76 10*3/uL Normal 0.10 - 1.00 [facility] Comment on above: Performed By: #### C BCDF ####[facility] [place] [address] Monocytes/100 leukocytes 5.6 % Normal 2.0 - 10.0 [facility] Comment on above: Performed By: #### C BCDF ####[facility] [place] [address] Neutrophils 11.53 10*3/uL High 1.20 - 7.70 [facility] Comment on above: Performed By: #### C BCDF ####[facility] [place] [address] Nucleated erythrocytes 0.0 /100 WBC Normal 0.0-0.0 [facility] Comment on above: Performed By: #### C BCDF ####[facility] [place] [address] Platelets 302 10*3/uL Normal 150 - 450 [facility] Comment on above: Performed By: #### C BCDF ####[facility] [place] [address] WBC (Leukocytes) 13.6 10*3/uL High 4.4 - 11.3 [facility] Comment on above: Performed By: #### C BCDF ####[facility] [place] [address] CELL COUNT AND DIFF, CSFon 0 -2018 Erythrocytes (RBC) 0 10*6/uL Normal 0 - 5 [facility] Comment on above: Performed By: #### M G ####[facility] [place] [address] Lymphocytes/100 leukocytes 1 % Normal [facility] Comment on above: Performed By: #### M G ####[facility] [place] [address] MONONUCLEAR CELLS 9 % Normal [facility] Comment on above: Performed By: #### M G ####[facility] [place] [address] Neutrophils/100 leukocytes 90 % Normal [facility] Comment on above: Performed By: #### M G ####[facility] [place] [address] SUPERNATANT Colorless Normal COLORLESS [facility] Comment on above: Performed By: #### M G ####[facility] [place] [address] TUBE # Tube 4 Normal [facility] Comment on above: Performed By: #### M G ####[facility] [place] [address] Urine, clarity Clear Normal CLEAR [facility] Comment on above: Performed By: #### M G ####[facility] [place] [address] Urine, color Colorless Normal COLORLESS [facility] Comment on above: Performed By: #### M G ####[facility] [place] [address] WBC (Leukocytes) 0.051 10*3/uL High 0 - 5 [facility] Comment on above: Performed By: #### M G ####[facility] [place] [address] CELLS COUNTED 100 Normal [facility] Comment on above: Performed By: #### M G ####[facility] [place] [address] Erythrocytes (RBC) 0 10*6/uL Normal 0 - 5 [facility] Comment on above: Performed By: #### M G ####[facility] [place] [address] Lymphocytes/100 leukocytes 6 % Normal [facility] Comment on above: Performed By: #### M G ####[facility] [place] [address] MONONUCLEAR CELLS 6 % Normal [facility] Comment on above: Performed By: #### M G ####[facility] [place] [address] Neutrophils/100 leukocytes 88 % Normal [facility] Comment on above: Performed By: #### M G ####[facility] [place] [address] SUPERNATANT Colorless Normal COLORLESS [facility] Comment on above: Performed By: #### M G ####[facility] [place] [address] TUBE # Tube 1 Normal [facility] Comment on above: Performed By: #### M G ####[facility] [id number] Urine, clarity Clear Normal CLEAR [facility] Comment on above: Performed By: #### M G ####[facility] [place] [address] Urine, color Colorless Normal COLORLESS [facility] Comment on above: Performed By: #### M G ####[facility] [id number] WBC (Leukocytes) 0.025 10*3/uL High 0 - 5 [facility] Comment on above: Performed By: #### M G ####[place] [id number] [place] [address] CMV DNA PCR, QUANT (NON-BLOO D SPECIMEN)on 04-27-2017 Lab Specimen Source Cerebral spinal fluid Normal [facility] Comment on above: Performed By: #### C OAGS ####[facility] [place] [address] Order Comment: TEST LYME ABS, CSF WAS CANCELLED, 04/29/2017 12:57 QNS, PLEASE RESUBMIT.. Performed By: #### E MRAD ####NO LOCATION NEEDED Performed By: #### M G ####[facility] [place] [address] Order Comment: TEST OLIGOCLONAL BANDING WAS CANCELLED, 04/29/2017 12:56 QNS, PLEASERESUBMIT.. Order Comment: TEST VZV DNA BY PCR, QUAL WAS CANCELLED, 04/29/2017 12:56 QNS, PLEASERESUBMIT.. COAGULATION SCREENon 018 aPTT 29 s Normal 25 - 36 [facility] Comment on above: Result Comment: THE APTT IS NO LONGER USED FOR MONITORING UNFRACTIONATED HEPARIN THERAPY. FOR MONITORING HEPARIN THERAPY, USE THE HEPARIN ASSAY. Performed By: #### C OAGS ####[facility] [place] [address] INR Coag RelTime (PPP) 1.1 {INR} Normal 0.9 - 1.1 [facility] Comment on above: Performed By: #### C OAGS ####[facility] [place] [address] Prothrombin time (PT) Coag time (PPP) 11.7 s Normal 9.8 - 12.7 [facility] Comment on above: Performed By: #### C OAGS ####[facility] [place] [address] CSF CULTURE/SM., BACTERIALon 04-27-2017 CSF CULTURE/SM., BACTERIAL Previous comment was modified by JOHN at 15:47 on 04/30/2017~NO GROWTH, CULTURE IN PROGRESS.NO GROWTHPATIENT: RADHA BRENNAN BBBB LOCATION: [address]#: [id number] : 53 AGE: SEX: M ORDERED BY: ZI QURESHI: CSF COLLECTED: 04/27/17 08:49ANTIBIOTICS AT [facility].: RECEIVED : 04/27/17 10:24SITE: LP Corrected Report R E S U L T S GRAM STAIN FINAL 04/27/17 12:46 1+ GRANULOCYTES. NO ORGANISMS SEEN. CSF CULTURE/SM., BACTERIAL FINAL 05/04/17 15:07 NO GROWTH AEROBICALLY OR ANAEROBICALLY.Previous comment was modified by JOHN at 15:47 on 04/30/17. NO GROWTH Normal [facility] Comment on above: Performed By: #### C OAGS ####[facility] [place] [address] EMR ADDONon 04-27-2017 ADDON CONFIRMATION REQUEST REC'D Normal [facility] Comment on above: Performed By: #### R ENAL ####[facility] [place] [address] ADDON CONFIRMATION REQUEST REC'D Normal [facility] Comment on above: Performed By: #### R ENAL ####[facility] [place] [address] ADDON CONFIRMATION REQUEST REC'D Normal [facility] Comment on above: Performed By: #### E MRAD ####NO LOCATION NEEDED ADDON CONFIRMATION REQUEST REC'D Normal [facility] Comment on above: Performed By: #### E MRAD ####NO LOCATION NEEDED FUNGAL CULTURE/SM, MISCon FUNGAL CULTURE/SM, MISC PATIENT: RADHA BRENNAN BBBB LOCATION: [address]#: [id number] : 53 AGE: SEX: M ORDERED BY: NONA QURESHICE: CSF COLLECTED: 04/27/17 08:49ANTIBIOTICS AT [facility].: RECEIVED : 05/01/17 01:28SITE: LP R E S U L T S FUNGAL SMEAR FINAL 05/01/17 14:44 FLUORESCENT FUNGAL STAIN: NEGATIVE FUNGAL CULTURE/SM, MISC FINAL 05/16/17 10:13 NO FUNGI ISOLATED. Normal [facility] Comment on above: Performed By: #### M G ####[facility] [place] [address] GLUCOSE-POCTon 04-27-2017 Glucose mass conc 105 mg/dL High 74 - 99 [facility] Comment on above: Performed By: #### C OAGS ####[facility] [place] [address] Glucose mass conc 106 mg/dL High 74 - 99 [facility] Comment on above: Performed By: #### R ENAL ####[facility] [place] [address] Glucose mass conc 107 mg/dL High 74 - 99 [facility] Comment on above: Performed By: #### R ENAL ####[facility] [place] [address] HEPATIC FUNCTION PANELon Alanine aminotransferase (ALT) 9 U/L Low 10 - 52 [facility] Comment on above: Result Comment: Zo ents treated with Sulfasalazine may generate falsely decreased results for ALT. Performed By: #### M G ####[facility] [place] [address] Alkaline phosphatase (ALP) 84 U/L Normal 33 - 136 [facility] Comment on above: Performed By: #### M G ####[facility] [place] [address] Aspartate aminotransferase (AST) 13 U/L Normal 9 - 39 [facility] Comment on above: Performed By: #### M G ####[facility] [place] [address] Bilirubin (direct) 0.1 mg/dL Normal 0.0 - 0.3 [facility] Comment on above: Performed By: #### M G ####[place] [id number] [place] [address] Bilirubin (total) 0.7 mg/dL Normal 0.0 - 1.2 [facility] Comment on above: Performed By: #### M G ####[place] [id number] [place] [address] Protein 6.2 g/dL Low 6.4 - 8.2 [facility] Comment on above: Performed By: #### M G ####[place] [id number] [place] [address] HSV BY PCR QUAL IN CSFon HSV-1 NOT DETECTED Normal Not Detected [facility] Comment on above: Performed By: #### M G ####[place] [id number] [place] [address] HSV-2 NOT DETECTED Normal Not Detected [facility] Comment on above: Result Comment: HSV PCR testing is performed using the FDA cleared [employer] Simplexa HSV 1 AND 2 Direct test.. Negative results do not rule out HSV infections of the central nervous system, particularly HSV encephalitis.. This test should not be used to assess treatment or outcome. Performed By: #### M G ####[facility] [place] [address] INFLUENZA A + B PCRon 2017 INFLUENZA A, PCR Negative Normal Negative [facility] Comment on above: Result Comment: Resp iratory virus testing is performed routinely by PCR for Influenza A/B and RSV. If Influenza and RSV PCR are negative, testing for parainfluenza 1,2,3 viruses and adenovirus is routinely performed for oncology inpatients and intensive care unit patients at [facility] and is available on request on other patients by calling Laboratory Client Services at [phone]. Performed By: #### C OAGS ####[facility] [place] [address] INFLUENZA B, PCR Negative Normal Negative [facility] Comment on above: Result Comment: Resp iratory virus testing is performed routinely by PCR for Influenza A/B and RSV. If Influenza and RSV PCR are negative, testing for parainfluenza 1,2,3 viruses and adenovirus is routinely performed for oncology inpatients and intensive care unit patients at [facility] and is available on request on other patients by calling Laboratory Client Services at [phone] Performed By: #### C OAGS ####[place] [id number] [place] [address] Lab Specimen Source Nasal, Nasopharyngeal Normal [facility] Comment on above: Performed By: #### C OAGS ####[place] [id number] [place] [address] LACTATEon 04-27-2017 Lactate 1.0 mmol/L Normal 0.4 - 2.0 [facility] Comment on above: Result Comment: Suellen puncture immediately after or during the administration of Metamizole may lead to falsely low results. Testing should be performed immediately prior to Metamizole dosing. Performed By: #### R ENAL ####[facility] [id number] Lactate 3.2 mmol/L High 0.4 - 2.0 [facility] Comment on above: Result Comment: Suellen puncture immediately after or during the administration of Metamizole may lead to falsely low results. Testing should be performed immediately prior to Metamizole dosing. Performed By: #### M G ####[facility] [id number] MAGNESIUMon 04-27-2017 Magnesium 2.16 mg/dL Normal 1.60 - 2.40 [facility] Comment on above: Performed By: #### R ENAL ####[facility] [place] [address] Magnesium 2.20 mg/dL Normal 1.60 - 2.40 [facility] Comment on above: Performed By: #### M G ####[facility] [place] [address] MISCELLANEOUS TESTon 018 NAME OF SEND OUT TEST RENY, CSF Normal [facility] Comment on above: Performed By: #### M G ####[facility] [place] [address] NR MRA HEAD W/O Con 04-27-19 18 NR MRA HEAD W/O C Name: BRENNANRADHA MULLINS STUDY:NR MRI BRAIN WO; NR MRA HEAD W/O C; NR MRA NECK WO.C; 04/27/2017 5:40pm INDICATION:Signs/Symptoms: concern for meningoencephalitis; possible seizure;including vessels for stroke work-up, Lie Flat: Yes, Pre Med: No. COMPARISON:None. [id number]; [id number] ORDERING CLINICIAN:ANASTACIO FITCH TECHNIQUE:Axial FLAIR, T2 and [...] was not attempted.*[place] EXAM[place] [facility] [place]: PAN BOLTON MD Normal [facility] NR MRA NECK WO.Con 8 NR MRA NECK WO.C Name: BRENNANRADHA MULLINS STUDY:NR MRI BRAIN WO; NR MRA HEAD W/O C; NR MRA NECK WO.C; 04/27/2017 5:40pm INDICATION:Signs/Symptoms: concern for meningoencephalitis; possible seizure;including vessels for stroke work-up, Lie Flat: Yes, Pre Med: No. COMPARISON:None. [id number]; [id number] ORDERING CLINICIAN:ANASTACIO FITCH TECHNIQUE:Axial FLAIR, T2 and [...] was not attempted.*THIS EXAMINATION [place] [facility] [place]: PAN BOLTON MD Normal [facility] NR MRI BRAIN WOon 04-27-2017 NR MRI BRAIN WO Name: RADHA BRENNAN STUDY:NR MRI BRAIN WO; NR MRA HEAD W/O C; NR MRA NECK WO.C; 04/27/2017 5:40pm INDICATION:Signs/Symptoms: concern for meningoencephalitis; possible seizure;including vessels for stroke work-up, Lie Flat: Yes, Pre Med: No. COMPARISON:None. [id number]; [id number] ORDERING CLINICIAN:ANASTACIO FITCH TECHNIQUE:Axial FLAIR, T2 and [...] was not attempted.*THIS EXAMINATION [place] [facility] [place]: PAN BOLTON MD Normal [facility] RENAL FUNCTION PANELon 04-27 Albumin 4.1 g/dL Normal 3.4 - 5.0 [facility] Comment on above: Performed By: #### R ENAL ####[facility] [place] [address] Anion gap 14 mmol/L Normal 10 - 20 [facility] Comment on above: Performed By: #### R ENAL ####[facility] [place] [address] Bicarbonate (HCO3) 27 mmol/L Normal 21 - 32 [facility] Comment on above: Performed By: #### R ENAL ####[facility] [place] [address] Calcium 8.8 mg/dL Normal 8.6 - 10.6 [facility] Comment on above: Performed By: #### R ENAL ####[facility] [place] [address] Chloride 98 mmol/L Normal 98 - 107 [facility] Comment on above: Performed By: #### R ENAL ####[facility] [place] [address] Creatinine 0.94 mg/dL Normal 0.50 - 1.30 [facility] Comment on above: Performed By: #### R ENAL ####[facility] [place] [address] eGFR (non-black) mL/min/{1.73_m2} Normal >60 [facility] Comment on above: Performed By: #### R ENAL ####[facility] [place] [address] Result Comment: CALC ULATIONS OF ESTIMATED GFR ARE PERFORMED USING THE MDRD STUDY EQUATION FOR THE IDMS-TRACEABLE CREATININE METHODS. CLIN CHEM 2007;53:766-72 Glucose mass conc 111 mg/dL High 74 - 99 [facility] Comment on above: Performed By: #### R ENAL ####[facility] [place] [address] Phosphate 2.4 mg/dL Low 2.5 - 4.9 [facility] Comment on above: Result Comment: The performance characteristics of phosphorus testing in heparinized plasma have been validated by the individual laboratory site where testing is performed. Testing on heparinized plasma is not approved by the FDA; however, such approval is not necessary. Performed By: #### R ENAL ####[facility] [place] [address] Potassium molar conc 4.5 mmol/L Normal 3.5 - 5.3 [facility] Comment on above: Performed By: #### R ENAL ####[facility] [place] [address] Sodium 134 mmol/L Low 136 - 145 [facility] Comment on above: Performed By: #### R ENAL ####[facility] [place] [address] Urea nitrogen 18 mg/dL Normal 6 - 23 [facility] Comment on above: Performed By: #### R ENAL ####[facility] [place] [address] Albumin 4.2 g/dL Normal 3.4 - 5.0 [facility] Comment on above: Performed By: #### R ENAL ####[facility] [place] [address] Performed By: #### M G ####[facility] [place] [address] Anion gap 15 mmol/L Normal 10 - 20 [facility] Comment on above: Performed By: #### R ENAL ####[facility] [place] [address] Bicarbonate (HCO3) 27 mmol/L Normal 21 - 32 [facility] Comment on above: Performed By: #### R ENAL ####[facility] [place] [address] Calcium 8.9 mg/dL Normal 8.6 - 10.6 [facility] Comment on above: Performed By: #### R ENAL ####[facility] [place] [address] Chloride 99 mmol/L Normal 98 - 107 [facility] Comment on above: Performed By: #### R ENAL ####[facility] [place] [address] Creatinine 0.95 mg/dL Normal 0.50 - 1.30 [facility] Comment on above: Performed By: #### R ENAL ####[facility] [place] [address] eGFR (non-black) mL/min/{1.73_m2} Normal >60 [facility] Comment on above: Result Comment: CALC ULATIONS OF ESTIMATED GFR ARE PERFORMED USING THE MDRD STUDY EQUATION FOR THE IDMS-TRACEABLE CREATININE METHODS. CLIN CHEM 2007;53:766-72 Performed By: #### R ENAL ####[facility] [place] [address] Glucose mass conc 104 mg/dL High 74 - 99 [facility] Comment on above: Performed By: #### R ENAL ####[facility] [place] [address] Phosphate 4.0 mg/dL Normal 2.5 - 4.9 [facility] Comment on above: Result Comment: The performance characteristics of phosphorus testing in heparinized plasma have been validated by the individual laboratory site where testing is performed. Testing on heparinized plasma is not approved by the FDA; however, such approval is not necessary. Performed By: #### R ENAL ####[facility] [place] [address] Potassium molar conc 4.5 mmol/L Normal 3.5 - 5.3 [facility] Comment on above: Performed By: #### R ENAL ####[facility] [place] [address] Sodium 136 mmol/L Normal 136 - 145 [facility] Comment on above: Performed By: #### R ENAL ####[facility] [place] [address] Urea nitrogen 15 mg/dL Normal 6 - 23 [facility] Comment on above: Performed By: #### R ENAL ####[facility] [place] [address] SYPHILIS IGGon 04-27-2017 SYPHILIS IGG NON REACTIVE Normal NONREACTIVE [facility] Comment on above: Result Comment: Zo ents receiving more than 5 mg/day of biotin may have interference in test results. A sample should be taken no sooner than eight hours after previous dose. Contact [phone] for additional information. Performed By: #### R ENAL ####[facility] [place] [address] Lab Specimen Source Normal [facility] Comment on above: Performed By: #### R ENAL ####[facility] [place] [address] TH CHEST 1 VIEWon 04-27-2017 TH CHEST [...] findingsas stated. This study was interpreted at [place], [place].Electronically signed by: CATHERINE VELASQUEZ MD Normal [facility] TOTAL PROTEIN AND GLUCOSE, C SFon 04-27-2017 GLUCOSE,CSF 78 mg/dL High 40 - 70 [facility] Comment on above: Performed By: #### M G ####[facility] [place] [address] TOTAL PROTEIN,CSF 73 mg/dL High 15 - 45 [facility] Comment on above: Performed By: #### M G ####[facility] [place] [address] TROPONIN Ion 04-27-2017 Troponin I.cardiac mass conc 0.10 ng/mL High 0.00 - 0.03 [facility] Comment on above: Result Comment: LESS THAN 0.04 NG/ML: NEGATIVEREPEAT TESTING IN FOUR TO SIX HOURSIF CLINICALLY INDICATED.0.04 - 0.5 NG/ML: CONSISTENT WITH POSSIBLECARDIAC DAMAGE AND POSSIBLE INCREASEDCLINICAL RISK.SERIAL MEASUREMENTS MAY HELP ASSESS EXTENT OFMYOCARDIAL DAMAGE.>0.5 NG/ML: CONSISTENT WITH CARDIAC DAMAGE,INCREASED CLINICAL RISK AND MYOCARDIALINFARCTION. SERIAL MEASUREMENTS MAY HELPASSESS EXTENT OF MYOCARDIAL DAMAGE..Note: Troponin I testing is performed using differenttesting methodology at [facility] than at [facility]. Direct result comparisons should onlybe made within the same method.. Patients receiving more than 5 mg/day of biotin may have interference in test results. A sample should be taken no sooner than eight hours after previous dose. Contact [phone] for additional information. Performed By: #### R ENAL ####[facility] [place] [address] TSHon 04-27-2017 Thyroid stimulating hormone (TSH) 0.86 m[IU]/L Normal 0.44 - 3.98 [facility] Comment on above: Result Comment: TSH testing is performed using different testing methodology at [facility] than at [facility]. Direct result comparisons should only be made within the same method.. Patients receiving more than 5 mg/day of biotin may have interference in test results. A sample should be taken no sooner than eight hours after previous dose. Contact [phone] for additional information. Performed By: #### C OAGS ####[facility] [place] [address] UA MICROSCOPICon 04-27-2017 Erythrocytes (RBC) 7 /HPF Abnormal 0-5 [facility] Comment on above: Performed By: #### M G ####[facility] [place] [address] Urine, mucus presence in sediment 1+ /LPF Normal [facility] Comment on above: Performed By: #### M G ####[facility] [place] [address] WBC (Leukocytes) 2 /HPF Normal 0-5 [facility] Comment on above: Performed By: #### M G ####[facility] [place] [address] URINALYSISon 04-27-2017 Bilirubin (total) Negative Normal NEGATIVE [facility] Comment on above: Performed By: #### M G ####[facility] [place] [address] BLOOD MODERATE (2+) Abnormal NEGATIVE [facility] Comment on above: Performed By: #### M G ####[facility] [place] [address] Glucose mass conc Negative Normal NEGATIVE [facility] Comment on above: Performed By: #### M G ####[facility] [place] [address] pH of blood 5.0 [pH] Normal 5.0 - 8.0 [facility] Comment on above: Performed By: #### M G ####[facility] [place] [address] Protein Negative Normal NEGATIVE [facility] Comment on above: Performed By: #### M G ####[facility] [place] [address] Urine, appearance CLEAR Normal CLEAR [facility] Comment on above: Performed By: #### M G ####[facility] [place] [address] Urine, color YELLOW Normal STRAW,YELLOW [facility] Comment on above: Performed By: #### M G ####[facility] [place] [address] Urine, ketones presence 5 (TRACE) Abnormal NEGATIVE [facility] Comment on above: Performed By: #### M G ####[facility] [place] [address] Urine, leukocyte esterase presence Negative Normal NEGATIVE [facility] Comment on above: Performed By: #### M G ####[facility] [place] [address] Urine, nitrite presence Negative Normal NEGATIVE [facility] Comment on above: Performed By: #### M G ####[facility] [place] [address] Urine, specific gravity 1.023 Normal 1.005 - 1.035 [facility] Comment on above: Performed By: #### M G ####[facility] [place] [address] Urine, urobilinogen <2.0 Normal 0.0 - 1.9 [facility] Comment on above: Performed By: #### M G ####[facility] [place] [address] VITAMIN B12on 04-27-2017 Cobalamins (Vitamin B12) 426 pg/mL Normal 211 - 911 [facility] Comment on above: Performed By: #### R ENAL ####[facility] [place] [address] Alcoholon 04-26-2017 Ethanol mg/dL Normal <10 [facility] Comment on above: Performed By: #### 1 [id number] ####[facility] [address] [place] [address] B Natriuretic Peptideon 04-05 BNP 22 pg/mL Normal <100 [facility] Comment on above: Performed By: #### 2 [id number] ####[facility] [address] [place] [address] C-Reactive Protein, High Sen sitivityon 04-26-2017 C-Reactive Protein, High Sensitivity 0.90 mg/L Normal [facility] Comment on above: Result Comment: < 1. 0 LOW RELATIVE RISK OF CVD1.0 - 3.0 AVERAGE RELATIVE RISK OF CVD> 3.0 HIGH RELATIVE RISK OF CVD Performed By: #### 2 076097 ####[facility] [address] [place] [address] CBC With Differentialon 04-05 Basophils Auto #/vol (Bld) 0.05 10*3/uL Normal 0.01-0.09 [facility] Comment on above: Performed By: #### 2 [id number] ####[facility] [address] [place] [address] Basophils/100 WBC Auto (Bld) 0.3 % Normal 0.0-1.3 [facility] Comment on above: Performed By: #### 2 [id number] ####[facility] [address] [place] [address] Eosinophils 0.12 10*3/uL Normal 0.01-0.46 [facility] Comment on above: Performed By: #### 2 937071 ####[facility] [address] [place] [address] Eosinophils/100 leukocytes 0.8 % Normal 0.0-6.7 [facility] Comment on above: Performed By: #### 2 398291 ####[facility] [address] [place] [address] Erythrocyte distribution width Auto Ratio (RBC) 12.9 % Normal 12.0-15.4 [facility] Comment on above: Performed By: #### 2 [id number] ####[address] [place] [address] Erythrocytes (RBC) 0.00 10*3/uL Normal [facility] Comment on above: Performed By: #### 2 854238 ####[address] [place] [address] Erythrocytes (RBC) 0.0 /100{WBCs} Normal [facility] Comment on above: Performed By: #### 2 265781 ####[facility] [address] [place] [address] Erythrocytes (RBC) 4.70 10*6/uL Normal 4.08-6.37 [facility] Comment on above: Performed By: #### 2 630607 ####[address] [place] [address] Hematocrit (HCT) 44.9 % Normal 38.4-54.9 [facility] Comment on above: Performed By: #### 2 593694 ####[facility] [address] [place] [address] Hemoglobin mass conc (Bld) 14.9 g/dL Normal 12.8-17.7 [facility] Comment on above: Performed By: #### 2 [id number] ####[facility] [address] [place] [address] Imm Grans Absolute 0.10 10*3/uL Normal 0.00-0.21 [facility] Comment on above: Performed By: #### 2 714035 ####[facility] [address] [place] [address] Immature granulocytes #/vol (Bld) 0.6 % Normal [facility] Comment on above: Performed By: #### 2 [id number] ####[facility] [address]ep[address] [place] [address] Lymphocytes 1.76 10*3/uL Normal 0.40-2.84 [facility] Comment on above: Performed By: #### 2 558217 ####[facility] [address] [place] [address] Lymphocytes/100 leukocytes 11.1 % Normal 9.4-41.1 [facility] Comment on above: Performed By: #### 2 513621 ####[facility] [address]ht[address] [place] [address] MCH 31.7 pg Normal 27.5-32.9 [facility] Comment on above: Performed By: #### 2 593119 ####[facility] [address] [place] [address] MCHC mass conc (RBC) 33.2 g/dL Normal 30.5-35.4 [facility] Comment on above: Performed By: #### 2 348403 ####[facility] Wpb[address] [place] [address] MCV 95.5 fL Normal 83.3-98.2 [facility] Comment on above: Performed By: #### 2 357508 ####[facility] [address]kt[address] [place] [address] Monocytes 0.51 10*3/uL Normal 0.25-1.33 [facility] Comment on above: Performed By: #### 2 499532 ####[facility] [address] [place] [address] Monocytes/100 leukocytes 3.2 % Normal 3.0-16.2 [facility] Comment on above: Performed By: #### 2 [id number] ####[facility] [address] [place] [address] Neutrophils 13.33 10*3/uL High 2.22-7.53 [facility] Comment on above: Performed By: #### 2 015799 ####[facility] S[address] [place] [address] Neutrophils/100 leukocytes 84.0 % High 46.2-79.1 [facility] Comment on above: Performed By: #### 2 331527 ####[facility] Clt[address] [place] [address] Platelet mean volume (PMV) 10.0 fL Normal 9.9-12.1 [facility] Comment on above: Performed By: #### 2 593983 ####[facility] Cax[address] [place] [address] Platelets 305 10*3/uL Normal 155-404 [facility] Comment on above: Performed By: #### 2 215381 ####[facility] Djd[address] [place] [address] RDW SD 45.8 fL Normal 39.3-48.6 [facility] Comment on above: Performed By: #### 2 868776 ####[facility] [address]oz[address] [place] [address] WBC (Leukocytes) 15.9 10*3/uL High 4.2-11.0 [facility] Comment on above: Performed By: #### 2 597150 ####[facility] Abl[address] [place] [address] CHEST SINGLE VIEW PORT PA OR APon 04-26-2017 CHEST SINGLE VIEW PORT PA OR AP DATE OF EXAM: Apr 26 2017 6:59PMCLINICAL HISTORY/ Name: CASTILLO BRENNAN:CHEST SINGLE VIEW PORT PA OR AP; 04/26/2017 6:59 pmINDICATION:. Altered mental status. Stroke-like symptoms.COMPARISON:ACCESS ION NUMBER(S):[id number] NG CLINICIAN:ANA SIMPSON:A portable radiograph of the chest is performed.FINDINGS:The heart is of normal size and contour. The pulmonary vessels are within normal limits. The lungs and the pleural spaces are clear. There is no pneumothorax. The osseous structures are intact.CONCLUSION: IMPRESSION:No sign of acute cardiopulmonary disease. Normal [facility] CKMBon 04-26-2017 CKMB 1.3 ng/mL Normal [facility] Comment on above: Result Comment: CKMB <7 AND CKMBI <4% :NEGATIVECKMB <7 AND CKMBI >4% :EQUIVOCALCKMB >=7 AND CKMBI <4% :EQUIVOCALCKMB >=7 AND CKMBI >4% :POSITIVE Performed By: #### 1 696120 ####[facility] [address] [place] [address] CKMB Indexon 04-26-2017 CKMB 1.6 % Normal [facility] Comment on above: Performed By: #### 2 958864 ####[facility] Mvq[address] [place] [address] CT BRAIN ATTACK W/O CONTRAST on 04-26-2017 CT BRAIN ATTACK W/O CONTRAST DATE OF EXAM: Apr 26 2017 2:33PMCLINICAL HISTORY/ Name: KAMILA BRENNANMURIEL:CT BRAIN ATTACK W/O CONTRAST; 04/26/2017 2:33 pmINDICATION:Brain Attack.COMPARISON:None.[facility] ESSION NUMBER(S):[id number] NG CLINICIAN:LUZ MARIA DUBOSEIQUE:Noncontra st axial CT scan of head was [...] middle cerebral distribution as detailed above Normal [facility] CT HEAD/BRAIN W/O CONTRASTon 04-26-2017 CT HEAD/BRAIN W/O CONTRAST DATE OF EXAM: Apr 26 2017 4:58PMCLINICAL HISTORY/ Name: REA BRENNANTUDY:CT HEAD/BRAIN W/O CONTRAST; 04/26/2017 4:58 pmINDICATION:for CVA. SeizureCOMPARISON:04/26/19 18 at 2:23 p.m. NG CLINICIAN:ANA SIMPSON:Noncontras t axial CT scan of head was [...] encephalomalacia within the right parietal lobe. Normal [facility] Comprehensive Metabolic Pane margarita 04-26-2017 Alanine aminotransferase (ALT) 12 U/L Normal 10-52 [facility] Comment on above: Performed By: #### 1 196252 ####[facility] [address] [place] [address] Albumin 4.2 g/dL Normal 3.4-5.0 [facility] Comment on above: Performed By: #### 1 653185 ####[facility] Hbt[address] [place] [address] Albumin/Globulin Ratio 1.7 {ratio} Normal 0.9-2.4 [facility] Comment on above: Performed By: #### 1 223136 ####[facility] [address]qq[address] [place] [address] Alkaline phosphatase (ALP) 93 U/L Normal 45-117 [facility] Comment on above: Performed By: #### 1 281641 ####[facility] [address]zo[address] [place] [address] Anion gap 11 mmol/L Normal 10-20 [facility] Comment on above: Performed By: #### 1 704579 ####[facility] Wac[address] [facility] [place] [address] Aspartate aminotransferase (AST) 15 U/L Normal 13-39 [facility] Comment on above: Performed By: #### 1 916912 ####[facility] Wxp[address] [facility] [place] [address] Bicarbonate (HCO3) 28 mmol/L Normal 21-32 [facility] Comment on above: Performed By: #### 1 517104 ####[facility] Ajk[address] [place] [address] Bilirubin (total) 0.6 mg/dL Normal 0.0-1.2 [facility] Comment on above: Performed By: #### 1 019365 ####[facility] Eue[address] [place] [address] BUN/Creatinine Ratio 14 mg/mg Normal 5-25 [facility] Comment on above: Performed By: #### 1 834219 ####[facility] Nlz[address] [place] [address] Calcium 8.9 mg/dL Normal 8.6-10.3 [facility] Comment on above: Performed By: #### 1 326794 ####[facility] Bco[address] [facility] [place] [address] Chloride 101 mmol/L Normal 98-107 [facility] Comment on above: Performed By: #### 1 479992 ####[facility] Bzt[address] [place] [address] Creatinine 0.92 mg/dL Normal 0.50-1.30 [facility] Comment on above: Performed By: #### 1 983649 ####[facility] Gyl[address] [facility] [place] [address] eGFR (MDRD) mL/min/{1.73_m2} Normal [facility] Comment on above: Result Comment: Inte rpretation [...] on 04/26/17 at Performed By: #### 1 367233 ####[facility] [address]vh[address] [place] [address] Glucose mass conc 234 mg/dL High 70-100 [facility] Comment on above: Performed By: #### 1 213822 ####[facility] Mbk[address] [place] [address] Potassium molar conc 3.8 mmol/L Normal 3.5-5.1 [facility] Comment on above: Performed By: #### 1 382368 ####[facility] Opd[address] [place] [address] Protein 6.7 g/dL Normal 6.4-8.2 [facility] Comment on above: Performed By: #### 1 947036 ####[facility] Nkn[address] [place] [address] Sodium 136 mmol/L Normal 136-145 [facility] Comment on above: Performed By: #### 1 130932 ####[facility] Roo[address] [place] [address] Urea nitrogen 13 mg/dL Normal 6-23 [facility] Comment on above: Performed By: #### 1 272415 ####[facility] Mju[address] [place] [address] Creatine Kinaseon 04-26-2017 Creatine kinase (CK) 82 U/L Normal 0-325 [facility] Comment on above: Performed By: #### 1 958870 ####[facility] Irr[address] [place] [address] Drugs of Abuse, Urine(7)on 0 04-26-2017 Amphetamines/Metamphe tamines, Urine Not Detected Normal [facility] Comment on above: Performed By: #### 2 936607 ####[facility] [address] [place] [address] Barbiturates, Urine Not Detected Normal [facility] Comment on above: Performed By: #### 2 326059 ####[facility] [address] [place] [address] Benzodiazepines, Urine Not Detected Normal [facility] Comment on above: Performed By: #### 2 315335 ####[facility] [address] [place] [address] Cannabinoids, Urine Not Detected Normal [facility] Comment on above: Performed By: #### 2 330562 ####[facility] Kkc[address] [place] [address] Cocaine, Urine Not Detected Normal [facility] Comment on above: Performed By: #### 2 853312 ####[facility] [address] [place] [address] Methadone, Urine Not Detected Normal [facility] Comment on above: Performed By: #### 2 221875 ####[facility] [address]xo[address] [place] [address] Opiates, Urine Not Detected Normal [facility] Comment on above: Performed By: #### 2 814629 ####[facility] [address] [place] [address] PCP, Urine Not Detected Normal [facility] Comment on above: Result Comment: Urin e toxicology screen results are to be used for medicalpurposes only. It is recommended that any result reportedas Detected be confirmed by a more specific alternativechemical method.Drug Analyzed Cutoff Concentration(ng/mL)Barbiturates 200Benzodiazepines 200Cocaine 150Opiates 300Amphetamines 500Cannabinoids 50Methadone 150PCP 25 Performed By: #### 2 255265 ####[facility] [address] [place] [address] Glucose, WB POCon 04-26-2017 Glucose mass conc 271 mg/dL High 70-100 [facility] Comment on above: Performed By: #### 2 752954 ####[facility] Okv[address] [place] [address] Glucose mass conc 255 mg/dL High 70-100 [facility] Comment on above: Result Comment: Noti anjali Physician Performed By: #### 1 391038 ####[facility] Nvs[address] [place] [address] Keppra (Levetiracetam)on Acetaminophen mass conc <2 Low 12-46 [facility] Comment on above: Result Comment: INTE RPRETIVE INFORMATION: Keppra (Levetiracetam)Therapeutic Range: 12-46 ug/mLToxic: Not well EstablishedPharmacokinetics of levetiracetam are affected by renalfunction. Adverse effects may include somnolence, weakness,headache and vomiting.Performed by [facility],[address] [place] [address] lzs.Paxer, Sumeet Nichols MD - Lab. Director Performed By: #### 1 584315 ####[facility] [address] [place] [address] Magnesiumon 04-26-2017 Magnesium 1.9 mg/dL Normal 1.6-2.4 [facility] Comment on above: Performed By: #### 2 099885 ####[facility] [address]zv[address] [place] [address] Partial Thromboplastin Timeo n 04-26-2017 aPTT 26.7 s Normal 22.1-35.3 [facility] Comment on above: Result Comment: Hepa rin Therapeutic Range: 71 - 97 sec Performed By: #### 3 [id number] ####[facility] Rpg[address] [place] [address] Phenytoinon 04-26-2017 Phenytoin ug/mL Low 10.0-20.0 [facility] Comment on above: Performed By: #### 2 253373 ####[facility] Peh[address] [place] [address] Prothrombin Timeon 8 INR Coag RelTime (PPP) 1.00 {INR} Normal 0.85-1.16 [facility] Comment on above: Result Comment: Coum patel Therapy:1.5 - 2.0 Low Intensity Therapy2.0 - 3.0 Moderate Intensity Therapy2.5 - 3.5 High (1) Intensity Therapy3.0 - 4.0 High (2) Intensity Therapy Performed By: #### 3 068481 ####[facility] Chm[address] [place] [address] Prothrombin time (PT) Coag time (PPP) 13.1 s Normal 11.3-14.5 [facility] Comment on above: Performed By: #### 3 601562 ####[facility] Xhp[address] [place] [address] Troponinon 04-26-2017 Troponin I.cardiac mass conc ng/mL Normal 0.000-0.040 [facility] Comment on above: Result Comment: <0.0 4 : Negative0.04 - 0.50 : Possible Cardiac Damage>0.50 : Consistent with Cardiac Damage Performed By: #### 1 [id number] ####[facility] [address]ae[address] [place] [address] Urinalysis with Reflex Cultu reon 04-26-2017 Ascorbic Acid Negative Normal Negative [facility] Comment on above: Performed By: #### 2 336029 ####[facility] Kjn[address] [place] [address] Automated Urine Microscopy Performed Normal [facility] Comment on above: Performed By: #### 2 [id number] ####[facility] Hhf[address] [place] [address] Bilirubin Ql (U) Negative Normal Negative [facility] Comment on above: Performed By: #### 2 [id number] ####[facility] Cbd[address] [place] [address] Blood Small Abnormal Negative [facility] Comment on above: Performed By: #### 2 [id number] ####[facility] Jqy[address] [place] [address] Erythrocytes (RBC) 11 /[HPF] Normal 0-3 [facility] Comment on above: Performed By: #### 2 967437 ####[facility] [address] [place] [address] Glucose mass conc 50 mg/dL Abnormal Negative [facility] Comment on above: Performed By: #### 2 403812 ####[facility] [address] [place] [address] Mucous Rare Normal None [facility] Comment on above: Performed By: #### 2 [id number] ####[facility] [address] [place] [address] Protein Negative Normal Negative [facility] Comment on above: Performed By: #### 2 903643 ####[facility] [address] [place] [address] Urine, appearance Clear Normal Clear [facility] Comment on above: Performed By: #### 2 267741 ####[facility] [address] [place] [address] Urine, color Yellow Normal [facility] Comment on above: Performed By: #### 2 973885 ####[facility] [address] [place] [address] Urine, ketones presence Negative Normal Negative [facility] Comment on above: Performed By: #### 2 693355 ####[facility] [address] [place] [address] Urine, nitrite presence Negative Normal Negative [facility] Comment on above: Performed By: #### 2 657024 ####[facility] [address] [place] [address] Urine, pH 6.0 [pH] Normal 5.0-9.0 [facility] Comment on above: Performed By: #### 2 998563 ####[facility] [address] [place] [address] Urine, specific gravity 1.017 Normal 1.003-1.035 [facility] Comment on above: Performed By: #### 2 390001 ####[facility] [address] [place] [address] Urine, squamous cells in sediment /[HPF] Normal 0-5 [facility] Comment on above: Performed By: #### 2 172872 ####[facility] [address] [place] [address] Urine, urobilinogen <2.0 Normal Negative [facility] Comment on above: Performed By: #### 2 472020 ####[facility] Xfh[address] [place] [address] WBC (Leukocytes) 1 /[HPF] Normal 0-5 [facility] Comment on above: Performed By: #### 2 688597 ####[facility] [address]vn[address] [place] [address] WBC (Leukocytes) Negative Normal Negative [facility] Comment on above: Performed By: #### 2 059854 ####[facility] Pqu[address] [place] [address] ECG B/O WO INTERP (MED OFFIC E) [facility] Influenza virus A and B and SARS-CoV-2 (COVID-19) Ag panel - Upper respiratory specim SARS-CoV-2 & FLU Antigen (Rapid) Influenzae A [facility] Work Phone: Vital Signs Date Time Vital Sign Value Performing Clinician Facility 01-10-2025 15:07-0400 Body height 173.[address] Parish Graff DO Work Phone: [facility] 01-10-2025 15:07-0400 Body mass index (BMI) [Ratio] 20.4 kg/m2 Dr. Parish Graff DO Work Phone: [facility] 01-10-2025 15:07-0400 Body temperature 99.2 [degF] Dr. Parish Graff DO Work Phone: [facility] 01-10-2025 15:07-0400 Body weight 61.[address] Parish Graff DO Work Phone: [facility] 01-10-2025 15:07-0400 Diastolic blood pressure 65 mm[Hg] Dr. Parish Graff DO Work Phone: [facility] 01-10-2025 15:07-0400 Heart rate 53 /min Dr. Parish Graff DO Work Phone: [facility] 01-10-2025 15:07-0400 Respiratory rate 18 /min Dr. Parish Graff DO Work Phone: [facility] 01-10-2025 15:07-0400 SaO2% (BldA) [Mass fraction] 97 % Dr. Parish Graff DO Work Phone: [facility] 01-10-2025 15:07-0400 Systolic blood pressure 106 mm[Hg] Dr. Parish Graff DO Work Phone: [facility] 11-10-2024 03:25-0400 Body temperature 97.2 [degF] Dr. Parish Graff DO Work Phone: [facility] 11-10-2024 03:25-0400 Diastolic blood pressure 60 mm[Hg] Dr. Parish Graff DO Work Phone: [facility] 11-10-2024 03:25-0400 Heart rate 54 /min Dr. Parish Graff DO Work Phone: [facility] 11-10-2024 03:25-0400 Respiratory rate 16 /min Dr. Parish Graff DO Work Phone: [facility] 11-10-2024 03:25-0400 SaO2% (BldA) [Mass fraction] 98 % Dr. Parish Graff DO Work Phone: [facility] 11-10-2024 03:25-0400 Systolic blood pressure 109 mm[Hg] Dr. Parish Graff DO Work Phone: [facility] 11-10-2024 00:11-0400 Body height 173.[address] Parish Graff DO Work Phone: [facility] 11-10-2024 00:11-0400 Body mass index (BMI) [Ratio] 20.8 kg/m2 Dr. Parish Graff DO Work Phone: [facility] 11-10-2024 00:11-0400 Body weight 63.[address] Parish Graff DO Work Phone: [facility] 10-18-2024 13:35-0400 Body height 173.[address] Parish Graff DO Work Phone: [facility] 10-18-2024 13:35-0400 Body mass index (BMI) [Ratio] 20.2 kg/m2 Dr. Parish Graff DO Work Phone: [facility] 10-18-2024 13:35-0400 Body temperature 98 [degF] Dr. Parish Graff DO Work Phone: [facility] 10-18-2024 13:35-0400 Body weight 61.[address] Parish Graff DO Work Phone: [facility] 10-18-2024 13:35-0400 Diastolic blood pressure 63 mm[Hg] Dr. Parish Graff DO Work Phone: [phone] [place] [address] 10-18-2024 13:35-0400 Heart rate 45 /min Dr. Parish Graff DO Work Phone: [facility] 10-18-2024 13:35-0400 Respiratory rate 16 /min Dr. Parish Graff DO Work Phone: [facility] 10-18-2024 13:35-0400 SaO2% (BldA) [Mass fraction] 100 % Dr. Parish Graff DO Work Phone: [facility] 10-18-2024 13:35-0400 Systolic blood pressure 106 mm[Hg] Dr. Parish Graff DO Work Phone: [facility] 10-12-2024 14:42-0400 Body height 173.[address] Parish Graff DO Work Phone: [facility] 10-12-2024 14:42-0400 Body mass index (BMI) [Ratio] 20.2 kg/m2 Dr. Parish Graff DO Work Phone: [facility] 10-12-2024 14:42-0400 Body weight 61.[address] Parish Graff DO Work Phone: [facility] 10-12-2024 14:42-0400 Diastolic blood pressure 66 mm[Hg] Dr. Parish Graff DO Work Phone: [facility] 10-12-2024 14:42-0400 Heart rate 76 /min Dr. Parish Graff DO Work Phone: [facility] 10-12-2024 14:42-0400 Respiratory rate 18 /min Dr. Parish Graff DO Work Phone: [facility] 10-12-2024 14:42-0400 SaO2% (BldA) [Mass fraction] 93 % Dr. Parish Graff DO Work Phone: [facility] 10-12-2024 14:42-0400 Systolic blood pressure 101 mm[Hg] Dr. Parish Graff DO Work Phone: [facility] 08-04-2024 15:56-0400 Diastolic Blood Pressure Non-Invasive 56 mm[Hg] DR FRANK GUILLERMO DO [facility] 08-04-2024 15:56-0400 Heart rate 58 /min DR FRANK GUILLERMO DO [facility] 08-04-2024 15:56-0400 Reason For Taking VItal Signs DR FRANK GUILLERMO DO [facility] 08-04-2024 15:56-0400 Respiratory rate 16 /min DR FRANK GUILLERMO DO [facility] 08-04-2024 15:56-0400 Systolic Blood Pressure Non-Invasive 112 mm[Hg] DR FRANK GUILLERMO DO [facility] 08-04-2024 14:12-0400 Diastolic Blood Pressure Non-Invasive 65 mm[Hg] DR FRANK GUILLERMO DO [facility] 08-04-2024 14:12-0400 Heart rate 56 /min DR FRANK GUILLERMO DO [facility] 08-04-2024 14:12-0400 Reason For Taking VItal Signs DR FRANK GUILLERMO DO [facility] 08-04-2024 14:12-0400 Respiratory rate 16 /min DR FRANK GUILLERMO DO [facility] 08-04-2024 14:12-0400 Systolic Blood Pressure Non-Invasive 110 mm[Hg] DR FRANK GUILLERMO DO [facility] 08-04-2024 13:17-0400 Body temperature 98.24 [degF] DR FRANK GUILLERMO DO [facility] 08-04-2024 13:17-0400 Body weight 62.[address] FRANK GUILLERMO DO [facility] 08-04-2024 13:17-0400 Diastolic Blood Pressure Non-Invasive 40 mm[Hg] DR FRANK GUILLERMO DO [facility] 08-04-2024 13:17-0400 Heart rate 60 /min DR FRANK GUILLERMO DO [facility] 08-04-2024 13:17-0400 Respiratory rate 18 /min DR FRANK GUILLERMO DO [facility] 08-04-2024 13:17-0400 Systolic Blood Pressure Non-Invasive 136 mm[Hg] DR FRANK GUILLERMO DO [facility] 07-17-2024 12:49-0400 Body mass index (BMI) [Ratio] 20.9 kg/m2 Dr. Parish Graff DO Work Phone: [facility] 07-17-2024 12:49-0400 Body temperature 97.3 [degF] Dr. Parish Graff DO Work Phone: [facility] 07-17-2024 12:49-0400 Body weight 63.[address] Praish Graff DO Work Phone: [facility] 07-17-2024 12:49-0400 Diastolic blood pressure 60 mm[Hg] Dr. Parish Graff DO Work Phone: [facility] 07-17-2024 12:49-0400 Heart rate 55 /min Dr. Parish Graff DO Work Phone: [facility] 07-17-2024 12:49-0400 Respiratory rate 20 /min Dr. Parish Graff DO Work Phone: [facility] 07-17-2024 12:49-0400 SaO2% (BldA) [Mass fraction] 96 % Dr. Parish Graff DO Work Phone: [facility] 07-17-2024 12:49-0400 Systolic blood pressure 103 mm[Hg] Dr. Parish Graff DO Work Phone: [facility] 07-10-2024 07:52-0400 Body mass index (BMI) [Ratio] 20.9 kg/m2 Dr. Parish Graff DO Work Phone: [facility] 07-10-2024 07:52-0400 Body temperature 96.6 [degF] Dr. Parish Graff DO Work Phone: [facility] 07-10-2024 07:52-0400 Body weight 63.[address] Parish Graff DO Work Phone: [facility] 07-10-2024 07:52-0400 Diastolic blood pressure 63 mm[Hg] Dr. Parish Graff DO Work Phone: [facility] 07-10-2024 07:52-0400 Heart rate 51 /min Dr. Parish Graff DO Work Phone: [facility] 07-10-2024 07:52-0400 Respiratory rate 18 /min Dr. Parish Graff DO Work Phone: [facility] 07-10-2024 07:52-0400 SaO2% (BldA) [Mass fraction] 98 % Dr. Parish Graff DO Work Phone: [facility] 07-10-2024 07:52-0400 Systolic blood pressure 106 mm[Hg] Dr. Parish Graff DO Work Phone: [facility] 02-27-2024 12:01-0500 Diastolic Blood Pressure Non-Invasive 62 mm[Hg] JOHN MATUTE MD [facility] 02-27-2024 12:01-0500 Heart rate 57 /min JOHN MATUTE MD [facility] 02-27-2024 12:01-0500 Respiratory rate 14 /min JOHN MATUTE MD [facility] 02-27-2024 12:01-0500 Systolic Blood Pressure Non-Invasive 112 mm[Hg] JOHN MATUTE MD [facility] 02-27-2024 11:57-0500 Diastolic Blood Pressure Non-Invasive 64 mm[Hg] JOHN MATUTE MD [facility] 02-27-2024 11:57-0500 Heart rate 60 /min JOHN MATUTE MD [facility] 02-27-2024 11:57-0500 Respiratory rate 17 /min JOHN MATUTE MD [facility] 02-27-2024 11:57-0500 Systolic Blood Pressure Non-Invasive 93 mm[Hg] JOHN MATUTE MD [facility] 02-27-2024 11:51-0500 Diastolic Blood Pressure Non-Invasive 60 mm[Hg] JOHN MATUTE MD [facility] 02-27-2024 11:51-0500 Heart rate 59 /min JOHN MATUTE MD [facility] 02-27-2024 11:51-0500 Respiratory rate 15 /min JOHN MATUTE MD [facility] 02-27-2024 11:51-0500 Systolic Blood Pressure Non-Invasive 91 mm[Hg] JOHN MATUTE MD [facility] 02-27-2024 11:36-0500 Body temperature 97.7 [degF] JOHN MATUTE MD [facility] 02-27-2024 11:25-0500 Respiratory Rate - Anes 12 br/min JOHN MATUTE MD [facility] 02-27-2024 11:20-0500 Respiratory Rate - Anes 12 br/min JOHN MATUTE MD [facility] 02-27-2024 11:15-0500 Respiratory Rate - Anes 12 br/min JOHN MATUTE MD [facility] 02-27-2024 08:56-0500 Body height 173 cm JOHN MATUTE MD [facility] 02-27-2024 08:56-0500 Body temperature 98.42 [degF] JOHN MATUTE MD [facility] 02-27-2024 08:56-0500 Body weight 173 kg JOHN MATUTE MD [facility] 02-27-2024 08:56-0500 Heart rate 66 /min JOHN MATUTE MD [facility] 02-23-2024 11:02-0500 Body height 172.7 cm JOHN MATUTE MD [facility] 02-23-2024 11:02-0500 Body weight 62 kg JOHN MATUTE MD [facility] 01-26-2024 14:34-0400 Body height 174 cm Nilesh Olivas MD Work Phone: [facility] 01-26-2024 14:34-0400 Body mass index (BMI) [Ratio] 20.68 kg/m2 Nilesh Olivas MD Work Phone: [facility] 01-26-2024 14:34-0400 Body weight 62.6 kg Nilesh Olivas MD Work Phone: [facility] 01-26-2024 14:34-0400 Diastolic blood pressure 70 mm[Hg] Nilesh Olivas MD Work Phone: [facility] 01-26-2024 14:34-0400 Heart rate 53 /min Nilesh Olivas MD Work Phone: [facility] 01-26-2024 14:34-0400 SaO2% (BldA) [Mass fraction] 97 % Nilesh Olivas MD Work Phone: [facility] 01-26-2024 14:34-0400 Systolic blood pressure 110 mm[Hg] Nilesh Olivas MD Work Phone: [facility] 05-23-2023 20:28-0500 Body temperature 97.4 [degF] Dr. Radha Quintero Work Phone: [facility] 05-23-2023 20:28-0500 Diastolic blood pressure 59 mm[Hg] Dr. Radha Quintero Work Phone: [facility] 05-23-2023 20:28-0500 Heart rate 57 /min Dr. Radha Quintero Work Phone: [facility] 05-23-2023 20:28-0500 Respiratory rate 12 /min Dr. Radha Quintero Work Phone: [facility] 05-23-2023 20:28-0500 SaO2% (BldA) [Mass fraction] 99 % Dr. Radha Quintero Work Phone: [facility] 05-23-2023 20:28-0500 Systolic blood pressure 112 mm[Hg] Dr. Radha Quintero Work Phone: [facility] 05-23-2023 17:01-0500 Body height 180.[address] Radha Quintero Work Phone: [facility] 05-23-2023 17:01-0500 Body mass index (BMI) [Ratio] 20.6 kg/m2 Dr. Radha Quintero Work Phone: [facility] 05-23-2023 17:01-0500 Body weight 67.[address] Radha Quintero Work Phone: [facility] 03-10-2023 08:32-0500 Body mass index (BMI) [Ratio] 19.9 kg/m2 Dr. Radha Quintero Work Phone: [facility] 03-10-2023 08:32-0500 Body temperature 97.4 [degF] Dr. Radha Quintero Work Phone: [facility] 03-10-2023 08:32-0500 Body weight 64.[address] Radha Quintero Work Phone: [facility] 03-10-2023 08:32-0500 Diastolic blood pressure 65 mm[Hg] Dr. Radha Quintero Work Phone: [facility] 03-10-2023 08:32-0500 Heart rate 64 /min Dr. Radha Quintero Work Phone: [facility] 03-10-2023 08:32-0500 Respiratory rate 20 /min Dr. Radha Quintero Work Phone: [facility] 03-10-2023 08:32-0500 SaO2% (BldA) [Mass fraction] 97 % Dr. Radha Quintero Work Phone: [facility] 03-10-2023 08:32-0500 Systolic blood pressure 109 mm[Hg] Dr. Radha Quintero Work Phone: [facility] 02-27-2023 17:07-0500 Diastolic blood pressure 84 mm[Hg] Dr. Radha Quintero Work Phone: [facility] 02-27-2023 17:07-0500 Heart rate 65 /min Dr. Radha Quintero Work Phone: [facility] 02-27-2023 17:07-0500 Respiratory rate 20 /min Dr. Radha Quintero Work Phone: [facility] 02-27-2023 17:07-0500 SaO2% (BldA) [Mass fraction] 100 % Dr. Radha Quintero Work Phone: [facility] 02-27-2023 17:07-0500 Systolic blood pressure 113 mm[Hg] Dr. Radha Quintero Work Phone: [facility] 02-27-2023 13:58-0500 Body height 180.[address] Radha Quintero Work Phone: [facility] 02-27-2023 13:58-0500 Body temperature 98 [degF] Dr. Radha Quintero Work Phone: [facility] 12-30-2022 09:04-0400 Body height 172.[address] Radha Quintero Work Phone: [facility] 12-30-2022 09:04-0400 Body mass index (BMI) [Ratio] 20.9 kg/m2 Dr. Radha Quintero Work Phone: [facility] 12-30-2022 09:04-0400 Body temperature 97.6 [degF] Dr. Radha Quintero Work Phone: [facility] 12-30-2022 09:04-0400 Body weight 62.[address] Radha Quintero Work Phone: [facility] 12-30-2022 09:04-0400 Diastolic blood pressure 68 mm[Hg] Dr. Radha Quintero Work Phone: [facility] 12-30-2022 09:04-0400 Heart rate 76 /min Dr. Radha Quintero Work Phone: [facility] 12-30-2022 09:04-0400 Respiratory rate 18 /min Dr. Radha Quintero Work Phone: [facility] 12-30-2022 09:04-0400 SaO2% (BldA) [Mass fraction] 99 % Dr. Radha Quintero Work Phone: [facility] 12-30-2022 09:04-0400 Systolic blood pressure 118 mm[Hg] Dr. Radha Quintero Work Phone: [facility] 12-24-2022 13:34-0400 Body temperature 97.6 [degF] Dr. Radha Quintero Work Phone: [facility] 12-24-2022 13:34-0400 Diastolic blood pressure 72 mm[Hg] Dr. Radha Quintero Work Phone: [facility] 12-24-2022 13:34-0400 Heart rate 68 /min Dr. Radha Quintero Work Phone: [facility] 12-24-2022 13:34-0400 Respiratory rate 16 /min Dr. Radha Quintero Work Phone: [facility] 12-24-2022 13:34-0400 SaO2% (BldA) [Mass fraction] 96 % Dr. Radha Quintero Work Phone: [facility] 12-24-2022 13:34-0400 Systolic blood pressure 108 mm[Hg] Dr. Radha Quintero Work Phone: [facility] 12-24-2022 13:10-0400 Inhaled oxygen flow rate 2 L/min Dr. Radha Quintero Work Phone: [facility] 12-24-2022 11:25-0400 Body height 172.[address] Radha Quintero Work Phone: [facility] 12-24-2022 11:25-0400 Body mass index (BMI) [Ratio] 21.1 kg/m2 Dr. Radha Quintero Work Phone: [facility] 12-24-2022 11:25-0400 Body weight [address] Radha Quintero Work Phone: [facility] 12-09-2022 23:23-0400 Diastolic blood pressure 70 mm[Hg] Dr. Radha Quintero Work Phone: [facility] 12-09-2022 23:23-0400 Heart rate 62 /min Dr. Radha Quintero Work Phone: [facility] 12-09-2022 23:23-0400 Respiratory rate 16 /min Dr. Radha Quintero Work Phone: [facility] 12-09-2022 23:23-0400 SaO2% (BldA) [Mass fraction] 98 % Dr. Radha Quintero Work Phone: [facility] 12-09-2022 23:23-0400 Systolic blood pressure 139 mm[Hg] Dr. Radha Quintero Work Phone: [facility] 12-09-2022 20:10-0400 Body height 172.[address] Radha Quintero Work Phone: [facility] 12-09-2022 20:10-0400 Body mass index (BMI) [Ratio] 22.4 kg/m2 Dr. Radha Quintero Work Phone: [facility] 12-09-2022 20:10-0400 Body temperature 98.4 [degF] Dr. Radha Quintero Work Phone: [facility] 12-09-2022 20:10-0400 Body weight 66.[address] Radha Quintero Work Phone: [facility] 11-29-2022 06:54-0400 Body mass index (BMI) [Ratio] 20.8 kg/m2 Dr. Radha Quintero Work Phone: [facility] 11-29-2022 06:54-0400 Body temperature 97.7 [degF] Dr. Radha Quintero Work Phone: [facility] 11-29-2022 06:54-0400 Body weight 62.[address] Radha Quintero Work Phone: [facility] 11-29-2022 06:54-0400 Diastolic blood pressure 74 mm[Hg] Dr. Radha Quintero Work Phone: [facility] 11-29-2022 06:54-0400 Heart rate 56 /min Dr. Radha Quintero Work Phone: [facility] 11-29-2022 06:54-0400 Respiratory rate 18 /min Dr. Radha Quintero Work Phone: [facility] 11-29-2022 06:54-0400 SaO2% (BldA) [Mass fraction] 97 % Dr. Radha Quintero Work Phone: [facility] 11-29-2022 06:54-0400 Systolic blood pressure 105 mm[Hg] Dr. Radha Quintero Work Phone: [facility] 11-18-2022 14:37-0400 Body mass index (BMI) [Ratio] 20.8 kg/m2 Dr. Radha Quintero Work Phone: [facility] 11-18-2022 14:37-0400 Body temperature 98.6 [degF] Dr. Radha Quintero Work Phone: [facility] 11-18-2022 14:37-0400 Body weight 62.[address] Radha Quintero Work Phone: [facility] 11-18-2022 14:37-0400 Diastolic blood pressure 66 mm[Hg] Dr. Radha Quintero Work Phone: [facility] 11-18-2022 14:37-0400 Heart rate 61 /min Dr. Radha Quintero Work Phone: [facility] 11-18-2022 14:37-0400 Respiratory rate 16 /min Dr. Radha Quintero Work Phone: [facility] 11-18-2022 14:37-0400 SaO2% (BldA) [Mass fraction] 96 % Dr. Radha Quintero Work Phone: [facility] 11-18-2022 14:37-0400 Systolic blood pressure 100 mm[Hg] Dr. Radha Quintero Work Phone: [facility] 11-10-2022 18:49-0400 Diastolic blood pressure 72 mm[Hg] Dr. Radha Quintero Work Phone: [facility] 11-10-2022 18:49-0400 Heart rate 69 /min Dr. Radha Quintero Work Phone: [facility] 11-10-2022 18:49-0400 Respiratory rate 17 /min Dr. Radha Quintero Work Phone: [facility] 11-10-2022 18:49-0400 SaO2% (BldA) [Mass fraction] 94 % Dr. Radha Quintero Work Phone: [facility] 11-10-2022 18:49-0400 Systolic blood pressure 103 mm[Hg] Dr. Radha Quintero Work Phone: [facility] 11-10-2022 15:33-0400 Body height 172.[address] Radha Quintero Work Phone: [facility] 11-10-2022 15:33-0400 Body mass index (BMI) [Ratio] 20.7 kg/m2 Dr. Radha Quintero Work Phone: [facility] 11-10-2022 15:33-0400 Body temperature 97.6 [degF] Dr. Radha Quintero Work Phone: [facility] 11-10-2022 15:33-0400 Body weight [address] Radha Quintero Work Phone: [facility] 11-02-2022 13:21-0400 Body temperature 98.5 [degF] Dr. Radha Quintero Work Phone: [facility] 11-02-2022 13:21-0400 Diastolic blood pressure 65 mm[Hg] Dr. Radha Quintero Work Phone: [facility] 11-02-2022 13:21-0400 Heart rate 79 /min Dr. Radha Quintero Work Phone: [facility] 11-02-2022 13:21-0400 Respiratory rate 16 /min Dr. Radha Quintero Work Phone: [facility] 11-02-2022 13:21-0400 SaO2% (BldA) [Mass fraction] 98 % Dr. Radha Quintero Work Phone: [facility] 11-02-2022 13:21-0400 Systolic blood pressure 106 mm[Hg] Dr. Radha Quintero Work Phone: [facility] 11-02-2022 01:44-0400 Body weight 60.[address] Radha Quintero Work Phone: [facility] 11-02-2022 01:37-0400 Body temperature 98.1 [degF] Dr. Radha Quintero Work Phone: [facility] 11-02-2022 01:37-0400 Diastolic blood pressure 64 mm[Hg] Dr. Radha Quintero Work Phone: [facility] 11-02-2022 01:37-0400 Heart rate 61 /min Dr. Radha Quintero Work Phone: [facility] 11-02-2022 01:37-0400 Respiratory rate 12 /min Dr. Radha Quintero Work Phone: [facility] 11-02-2022 01:37-0400 SaO2% (BldA) [Mass fraction] 97 % Dr. Radha Quintero Work Phone: [facility] 11-02-2022 01:37-0400 Systolic blood pressure 109 mm[Hg] Dr. Radha Quintero Work Phone: [facility] 11-01-2022 21:50-0400 Inhaled oxygen flow rate 2 L/min Dr. Radha Quintero Work Phone: [facility] 11-01-2022 21:07-0400 Body height 175.[address] Radha Quintero Work Phone: [facility] 11-01-2022 21:07-0400 Body mass index (BMI) [Ratio] 22.1 kg/m2 Dr. Radha Quintero Work Phone: [facility] 11-01-2022 21:07-0400 Body weight 67.[address] Radha Quintero Work Phone: [facility] 10-20-2022 22:21-0400 Diastolic blood pressure 89 mm[Hg] Dr. Radha Quintero Work Phone: [facility] 10-20-2022 22:21-0400 Heart rate 64 /min Dr. Radha Quintero Work Phone: [facility] 10-20-2022 22:21-0400 Respiratory rate 17 /min Dr. Radha Quintero Work Phone: [facility] 10-20-2022 22:21-0400 SaO2% (BldA) [Mass fraction] 99 % Dr. Radha Quintero Work Phone: [facility] 10-20-2022 22:21-0400 Systolic blood pressure 127 mm[Hg] Dr. Radha Quintero Work Phone: [facility] 10-20-2022 20:16-0400 Body height 175.[address] Radha Quintero Work Phone: [facility] 10-20-2022 20:16-0400 Body mass index (BMI) [Ratio] 21.4 kg/m2 Dr. Radha Quintero Work Phone: [facility] 10-20-2022 20:16-0400 Body temperature 97.6 [degF] Dr. Radha Quintero Work Phone: [facility] 10-20-2022 20:16-0400 Body weight 65.[address] Radha Quintero Work Phone: [facility] 09-15-2022 07:10-0400 Blood Pressure Location MADHU DENNIS MD [facility] 09-15-2022 07:10-0400 Blood Pressure Method MADHU DENNIS MD [facility] 09-15-2022 07:10-0400 Body temperature 97.88 [degF] MADHU DENNIS MD [facility] 09-15-2022 07:10-0400 Diastolic Blood Pressure Non-Invasive 62 1 MADHU DENNIS MD [facility] 09-15-2022 07:10-0400 Heart rate 56 /min MADHU DENNIS MD [facility] 09-15-2022 07:10-0400 Mean blood pressure 78 mm[Hg] MADHU DENNIS MD [facility] 09-15-2022 07:10-0400 Reason For Taking VItal Signs MADHU DENNIS MD [facility] 09-15-2022 07:10-0400 Respiratory rate 19 /min MADHU DENNIS MD [address] [place] [address] 09-15-2022 07:10-0400 Systolic Blood Pressure Non-Invasive 111 1 MADHU DENNIS MD [address] [place] [address] 09-15-2022 02:58-0400 Body temperature 97.88 [degF] MADHU DENNIS MD [address] [place] [address] 09-15-2022 02:58-0400 Diastolic Blood Pressure Non-Invasive 56 1 MADHU DENNIS MD [address] [place] [address] 09-15-2022 02:58-0400 Heart rate 66 /min MADHU DENNIS MD [address] [place] [address] 09-15-2022 02:58-0400 Reason For Taking VItal Signs MADHU DENNIS MD [address] [place] [address] 09-15-2022 02:58-0400 Respiratory rate 18 /min MADHU DENNIS MD [address] [place] [address] 09-15-2022 02:58-0400 Systolic Blood Pressure Non-Invasive 107 1 MADHU DENNIS MD [address] [place] [address] 09-14-2022 23:19-0400 Body temperature 98.6 [degF] MADHU DENNIS MD [address] [place] [address] 09-14-2022 23:19-0400 Diastolic Blood Pressure Non-Invasive 64 1 MADHU DENNIS MD [address] [place] [address] 09-14-2022 23:19-0400 Heart rate 66 /min MADHU DENNIS MD [address] [place] [address] 09-14-2022 23:19-0400 Respiratory rate 18 /min MADHU DENNIS MD [address] [place] [address] 09-14-2022 23:19-0400 Systolic Blood Pressure Non-Invasive 105 1 MADHU DENNIS MD [address] [place] [address] 09-14-2022 18:09-0400 Heart rate 73 /min MADHU DENNIS MD [address] [place] [address] 09-14-2022 18:09-0400 Reason For Taking VItal Signs MADHU DENNIS MD [facility] 09-14-2022 14:41-0400 Heart rate 58 /min MADHU DENNIS MD [facility] 09-14-2022 10:34-0400 Heart rate 57 /min MADHU DENNIS MD [address] [place] [address] 09-14-2022 07:02-0400 Heart rate 64 /min MADHU DENNIS MD [address] [place] [address] 09-13-2022 00:07-0400 Body height 182.9 cm MADHU DENNIS MD [address] [place] [address] 09-13-2022 00:07-0400 Body weight 59.6 kg MADHU DENNIS MD [address] [place] [address] 09-13-2022 00:07-0400 Body weight 17.82 kg/m2 MADHU DENNIS MD [facility] 09-10-2022 14:55-0400 Body temperature 97.8 [degF] Dr. Radha Quintero Work Phone: [facility] 09-10-2022 14:55-0400 Diastolic blood pressure 64 mm[Hg] Dr. Radha Quintero Work Phone: [facility] 09-10-2022 14:55-0400 Heart rate 64 /min Dr. Radha Quinteor Work Phone: [facility] 09-10-2022 14:55-0400 Respiratory rate 16 /min Dr. Radha Quintero Work Phone: [facility] 09-10-2022 14:55-0400 SaO2% (BldA) [Mass fraction] 97 % Dr. Radha Quintero Work Phone: [facility] 09-10-2022 14:55-0400 Systolic blood pressure 122 mm[Hg] Dr. Radha Quintero Work Phone: [facility] 09-10-2022 12:44-0400 Body height 172.[address] Radha Quintero Work Phone: [facility] 09-10-2022 12:44-0400 Body weight 59.[address] Radha Quintero Work Phone: [facility] 09-10-2022 01:02-0400 Body mass index (BMI) [Ratio] 20 kg/m2 Dr. Radha Quintero Work Phone: [facility] 09-09-2022 14:50-0400 Body mass index (BMI) [Ratio] 21.4 kg/m2 Dr. Rad[facility] Quinter[facility] [facility] 09-09-2022 14:50-0400 Body temperature 98.4 [degF] Dr. Radha Quintero Work Phone: [facility] 09-09-2022 14:50-0400 Body weight 63.[address] Radha Quintero Work Phone: [facility] 09-09-2022 14:50-0400 Diastolic blood pressure 60 mm[Hg] Dr. Radha Quintero Work Phone: [facility] 09-09-2022 14:50-0400 Heart rate 64 /min Dr. Radha Quintero Work Phone: [facility] 09-09-2022 14:50-0400 Respiratory rate 16 /min Dr. Radha Quintero Work Phone: [facility] 09-09-2022 14:50-0400 SaO2% (BldA) [Mass fraction] 98 % Dr. Radha Quintero Work Phone: [facility] 09-09-2022 14:50-0400 Systolic blood pressure 98 mm[Hg] Dr. Radha Quintero Work Phone: [facility] 09-09-2022 13:48-0400 Body temperature 99.3 [degF] Dr. Radha Quintero Work Phone: [facility] 09-09-2022 13:48-0400 Heart rate 64 /min Dr. Radha Quintero Work Phone: [facility] 09-09-2022 13:48-0400 Respiratory rate 18 /min Dr. Radha Quintero Work Phone: [facility] 09-09-2022 13:48-0400 SaO2% (BldA) [Mass fraction] 96 % Dr. Radha Quintero Work Phone: [facility] 09-07-2022 15:22-0400 Body mass index (BMI) [Ratio] 21.1 kg/m2 Dr. Radha Quintero Work Phone: [facility] 09-07-2022 15:22-0400 Body weight 63.[address] Radha Quintero Work Phone: [facility] 09-07-2022 15:22-0400 Diastolic blood pressure 57 mm[Hg] Dr. Radha Quintero Work Phone: [facility] 09-07-2022 15:22-0400 Heart rate 61 /min Dr. Radha Quintero Work Phone: [facility] 09-07-2022 15:22-0400 Respiratory rate 18 /min Dr. Radha Quintero Work Phone: [facility] 09-07-2022 15:22-0400 SaO2% (BldA) [Mass fraction] 99 % Dr. Radha Quintero Work Phone: [facility] 09-07-2022 15:22-0400 Systolic blood pressure 124 mm[Hg] Dr. Radha Quintero Work Phone: [facility] 09-07-2022 08:55-0400 Body mass index (BMI) [Ratio] 20.9 kg/m2 Dr. Radha Quintero Work Phone: [facility] 09-07-2022 08:55-0400 Body temperature 99.1 [degF] Dr. Radha Quintero Work Phone: [facility] 09-07-2022 08:55-0400 Body weight 62.[address] Radha Quintero Work Phone: [facility] 09-07-2022 08:55-0400 Diastolic blood pressure 55 mm[Hg] Dr. Radha Quintero Work Phone: [facility] 09-07-2022 08:55-0400 Heart rate 78 /min Dr. Radha Quintero Work Phone: [facility] 09-07-2022 08:55-0400 Respiratory rate 16 /min Dr. Radha Quintero Work Phone: [facility] 09-07-2022 08:55-0400 SaO2% (BldA) [Mass fraction] 96 % Dr. Radha Quintero Work Phone: [facility] 09-07-2022 08:55-0400 Systolic blood pressure 93 mm[Hg] Dr. Radha Quintero Work Phone: [facility] 09-05-2022 21:41-0400 Diastolic blood pressure 73 mm[Hg] Dr. Radha Quintero Work Phone: [facility] 09-05-2022 21:41-0400 Heart rate 71 /min Dr. Radha Quintero Work Phone: [facility] 09-05-2022 21:41-0400 Respiratory rate 16 /min Dr. Radha Quintero Work Phone: [facility] 09-05-2022 21:41-0400 SaO2% (BldA) [Mass fraction] 97 % Dr. Radha Quintero Work Phone: [facility] 09-05-2022 21:41-0400 Systolic blood pressure 133 mm[Hg] Dr. Radha Quintero Work Phone: [facility] 09-05-2022 19:24-0400 Body height 172.[address] Radha Quintero Work Phone: [facility] 09-05-2022 19:24-0400 Body mass index (BMI) [Ratio] 21.9 kg/m2 Dr. Radha Quintero Work Phone: [facility] 09-05-2022 19:24-0400 Body temperature 98.2 [degF] Dr. Radha Quintero Work Phone: [facility] 09-05-2022 19:24-0400 Body weight 65.[address] Radha Quintero Work Phone: [facility] 07-15-2022 13:02-0400 Body temperature 97.4 [degF] Dr. Radha Quintero Work Phone: [facility] 07-15-2022 13:02-0400 Body weight 61.[address] Radha Quintero Work Phone: [facility] 07-15-2022 13:02-0400 Diastolic blood pressure 64 mm[Hg] Dr. Radha Quintero Work Phone: [facility] 07-15-2022 13:02-0400 Heart rate 73 /min Dr. Radha Quintero Work Phone: [facility] 07-15-2022 13:02-0400 Respiratory rate 16 /min Dr. Radha Quintero Work Phone: [facility] 07-15-2022 13:02-0400 SaO2% (BldA) [Mass fraction] 98 % Dr. Radha Quintero Work Phone: [facility] 07-15-2022 13:02-0400 Systolic blood pressure 109 mm[Hg] Dr. Radha Quintero Work Phone: [facility] 05-10-2022 15:40-0500 Body mass index (BMI) [Ratio] 21.6 kg/m2 Dr. Radha Quintero Work Phone: [facility] 05-10-2022 15:40-0500 Body temperature 98.4 [degF] Dr. Radha Quintero Work Phone: [facility] 05-10-2022 15:40-0500 Body weight 64.[address] Radha Quintero Work Phone: [facility] 05-10-2022 15:40-0500 Diastolic blood pressure 82 mm[Hg] Dr. Radha Quintero Work Phone: [facility] 05-10-2022 15:40-0500 Heart rate 68 /min Dr. Radha Quintero Work Phone: [facility] 05-10-2022 15:40-0500 Respiratory rate 16 /min Dr. Radha Quintero Work Phone: [facility] 05-10-2022 15:40-0500 SaO2% (BldA) [Mass fraction] 96 % Dr. Radha Quintero Work Phone: [facility] 05-10-2022 15:40-0500 Systolic blood pressure 140 mm[Hg] Dr. Radha Quintero Work Phone: [facility] 04-14-2022 15:36-0500 Body temperature 97.3 [degF] Dr. Radha Quintero Work Phone: [facility] Work Phone: 04-14-2022 15:36-0500 Body weight 63.[address] Radha Quintero Work Phone: [facility] Work Phone: 04-14-2022 15:36-0500 Diastolic blood pressure 67 mm[Hg] Dr. Radha Quintero Work Phone: [facility] Work Phone: 04-14-2022 15:36-0500 Heart rate 65 /min Dr. Radha Quintero Work Phone: [facility] Work Phone: 04-14-2022 15:36-0500 Respiratory rate 16 /min Dr. Rahda Quintero Work Phone: [facility] Work Phone: 04-14-2022 15:36-0500 SaO2% (BldA) [Mass fraction] 92 % Dr. Radha Quintero Work Phone: [facility] Work Phone: 04-14-2022 15:36-0500 Systolic blood pressure 101 mm[Hg] Dr. Radha Quintero Work Phone: [facility] Work Phone: 04-11-2022 18:42-0500 Body temperature 98.1 [degF] Dr. Radha Quintero Work Phone: [facility] Work Phone: 04-11-2022 18:42-0500 Diastolic blood pressure 84 mm[Hg] Dr. Radha Quintero Work Phone: [facility] Work Phone: 04-11-2022 18:42-0500 Heart rate 79 /min Dr. Radha Quintero Work Phone: [facility] Work Phone: 04-11-2022 18:42-0500 Respiratory rate 16 /min Dr. Radha Quintero Work Phone: [facility] Work Phone: 04-11-2022 18:42-0500 SaO2% (BldA) [Mass fraction] 96 % Dr. Radha Quintero Work Phone: [facility] Work Phone: 04-11-2022 18:42-0500 Systolic blood pressure 106 mm[Hg] Dr. Radha Quintero Work Phone: [facility] Work Phone: 04-11-2022 15:14-0500 Body height 172.[address] Radha Quintero Work Phone: [facility] Work Phone: 04-11-2022 15:14-0500 Body mass index (BMI) [Ratio] 22.2 kg/m2 Dr. Radha Quintero Work Phone: [facility] Work Phone: 04-11-2022 15:14-0500 Body weight 66.[address] Radha Quintero Work Phone: [facility] Work Phone: 04-10-2022 23:37-0500 Heart rate 69 /min Dr. Radha Quintero Work Phone: [facility] Work Phone: 04-10-2022 23:37-0500 Respiratory rate 18 /min Dr. Radha Quintero Work Phone: [facility] Work Phone: 04-10-2022 23:37-0500 SaO2% (BldA) [Mass fraction] 98 % Dr. Radha Quintero Work Phone: [facility] Work Phone: 04-10-2022 18:23-0500 Body height 172.[address] Radha Quintero Work Phone: [facility] Work Phone: 04-10-2022 18:23-0500 Body mass index (BMI) [Ratio] 20.9 kg/m2 Dr. Radha Quintero Work Phone: [facility] Work Phone: 04-10-2022 18:23-0500 Body temperature 97.8 [degF] Dr. Radha Quintero Work Phone: [facility] Work Phone: 04-10-2022 18:23-0500 Body weight 62.[address] Radha Quintero Work Phone: [facility] Work Phone: 04-10-2022 18:23-0500 Diastolic blood pressure 65 mm[Hg] Dr. Radha Quintero Work Phone: [facility] Work Phone: 04-10-2022 18:23-0500 Systolic blood pressure 107 mm[Hg] Dr. Radha Quintero Work Phone: [facility] Work Phone: 04-08-2022 14:13-0500 Body mass index (BMI) [Ratio] 20.7 kg/m2 Dr. Radha Quintero Work Phone: [facility] Work Phone: 04-08-2022 14:13-0500 Body temperature 97.8 [degF] Dr. Radha Quitnero Work Phone: [facility] Work Phone: 04-08-2022 14:13-0500 Body weight 62.[address] Radha Quintero Work Phone: [facility] Work Phone: 04-08-2022 14:13-0500 Diastolic blood pressure 63 mm[Hg] Dr. Radha Quintero Work Phone: [facility] Work Phone: 04-08-2022 14:13-0500 Heart rate 107 /min Dr. Radha Quintero Work Phone: [facility] Work Phone: 04-08-2022 14:13-0500 Respiratory rate 16 /min Dr. Radha Quintero Work Phone: [facility] Work Phone: 04-08-2022 14:13-0500 SaO2% (BldA) [Mass fraction] 99 % Dr. Radha Quintero Work Phone: [facility] Work Phone: 04-08-2022 14:13-0500 Systolic blood pressure 108 mm[Hg] Dr. Radha Quintero Work Phone: [facility] Work Phone: 03-22-2022 10:30-0500 Body height 172.72 cm No Primary Care Physician [facility] Work Phone: 03-22-2022 10:30-0500 Body mass index (BMI) [Ratio] 20.9 kg/m2 No Primary Care Physician [facility] Work Phone: 03-22-2022 10:30-0500 Body temperature 97.8 [degF] No Primary Care Physician [facility] Work Phone: 03-22-2022 10:30-0500 Body weight 62.59 kg No Primary Care Physician [facility] Work Phone: 03-22-2022 10:30-0500 Diastolic blood pressure 84 mm[Hg] No Primary Care Physician [facility] Work Phone: 03-22-2022 10:30-0500 Heart rate 91 /min No Primary Care Physician [facility] Work Phone: 03-22-2022 10:30-0500 Respiratory rate 18 /min No Primary Care Physician [facility] Work Phone: 03-22-2022 10:30-0500 SaO2% (BldA) [Mass fraction] 94 % No Primary Care Physician [facility] Work Phone: 03-22-2022 10:30-0500 Systolic blood pressure 110 mm[Hg] No Primary Care Physician [facility] Work Phone: 02-10-2022 15:16-0500 Body height 172.72 cm No Primary Care Physician [facility] Work Phone: 02-10-2022 15:16-0500 Body mass index (BMI) [Ratio] 21.1 kg/m2 No Primary Care Physician [facility] Work Phone: 02-10-2022 15:16-0500 Body weight 63.04 kg No Primary Care Physician [facility] Work Phone: 02-10-2022 15:16-0500 Diastolic blood pressure 71 mm[Hg] No Primary Care Physician [facility] Work Phone: 02-10-2022 15:16-0500 Heart rate 66 /min No Primary Care Physician [facility] Work Phone: 02-10-2022 15:16-0500 Respiratory rate 18 /min No Primary Care Physician [facility] Work Phone: 02-10-2022 15:16-0500 SaO2% (BldA) [Mass fraction] 98 % No Primary Care Physician [facility] Work Phone: 02-10-2022 15:16-0500 Systolic blood pressure 118 mm[Hg] No Primary Care Physician [facility] Work Phone: 02-05-2022 11:40-0400 Body height 172.72 cm No Primary Care Physician [facility] Work Phone: 02-05-2022 11:40-0400 Body mass index (BMI) [Ratio] 20.9 kg/m2 No Primary Care Physician [facility] Work Phone: 02-05-2022 11:40-0400 Body temperature 97.1 [degF] No Primary Care Physician [facility] Work Phone: 02-05-2022 11:40-0400 Body weight 62.59 kg No Primary Care Physician [facility] Work Phone: 02-05-2022 11:40-0400 Diastolic blood pressure 72 mm[Hg] No Primary Care Physician [facility] Work Phone: 02-05-2022 11:40-0400 Heart rate 64 /min No Primary Care Physician [facility] Work Phone: 02-05-2022 11:40-0400 Respiratory rate 16 /min No Primary Care Physician [facility] Work Phone: 02-05-2022 11:40-0400 SaO2% (BldA) [Mass fraction] 100 % No Primary Care Physician [facility] Work Phone: 02-05-2022 11:40-0400 Systolic blood pressure 114 mm[Hg] No Primary Care Physician [facility] Work Phone: 02-02-2022 00:37-0400 Body weight 63.72 kg No Primary Care Physician [facility] Work Phone: 01-14-2022 11:40-0400 Body height 172.72 cm No Primary Care Physician [facility] Work Phone: 01-14-2022 11:40-0400 Body mass index (BMI) [Ratio] 21.2 kg/m2 No Primary Care Physician [facility] Work Phone: 01-14-2022 11:40-0400 Body weight 63.27 kg No Primary Care Physician [facility] Work Phone: 01-14-2022 11:40-0400 Diastolic blood pressure 60 mm[Hg] No Primary Care Physician [facility] Work Phone: 01-14-2022 11:40-0400 Heart rate 72 /min No Primary Care Physician [facility] Work Phone: 01-14-2022 11:40-0400 Respiratory rate 18 /min No Primary Care Physician [facility] Work Phone: 01-14-2022 11:40-0400 Systolic blood pressure 98 mm[Hg] No Primary Care Physician [facility] Work Phone: 01-14-2022 08:08-0400 Body weight 63.72 kg No Primary Care Physician [facility] Work Phone: 01-06-2022 13:37-0400 Body mass index (BMI) [Ratio] 21.2 kg/m2 No Primary Care Physician [facility] Work Phone: 01-06-2022 13:37-0400 Body weight 63.5 kg No Primary Care Physician [facility] Work Phone: 01-06-2022 13:37-0400 Diastolic blood pressure 49 mm[Hg] No Primary Care Physician [facility] Work Phone: 01-06-2022 13:37-0400 Heart rate 63 /min No Primary Care Physician [facility] Work Phone: 01-06-2022 13:37-0400 Respiratory rate 18 /min No Primary Care Physician [facility] Work Phone: 01-06-2022 13:37-0400 Systolic blood pressure 93 mm[Hg] No Primary Care Physician [facility] Work Phone: 12-17-2021 14:01-0400 Body height 172.72 cm No Primary Care Physician [facility] Work Phone: 12-17-2021 14:01-0400 Body mass index (BMI) [Ratio] 20.5 kg/m2 No Primary Care Physician [facility] Work Phone: 12-17-2021 14:01-0400 Body temperature 98.6 [degF] No Primary Care Physician [facility] Work Phone: 12-17-2021 14:01-0400 Body weight 61.29 kg No Primary Care Physician [facility] Work Phone: 12-17-2021 14:01-0400 Diastolic blood pressure 84 mm[Hg] No Primary Care Physician [facility] Work Phone: 12-17-2021 14:01-0400 Heart rate 78 /min No Primary Care Physician [facility] Work Phone: 12-17-2021 14:01-0400 Respiratory rate 16 /min No Primary Care Physician [facility] Work Phone: 12-17-2021 14:01-0400 SaO2% (BldA) [Mass fraction] 98 % No Primary Care Physician [facility] Work Phone: 12-17-2021 14:01-0400 Systolic blood pressure 112 mm[Hg] No Primary Care Physician [facility] Work Phone: 12-11-2021 15:01-0400 Body weight 61.68 kg No Primary Care Physician [facility] Work Phone: 12-11-2021 14:36-0400 Body mass index (BMI) [Ratio] 20.7 kg/m2 No Primary Care Physician [facility] Work Phone: 12-11-2021 14:36-0400 Body temperature 97.3 [degF] No Primary Care Physician [facility] Work Phone: 12-11-2021 14:36-0400 Diastolic blood pressure 74 mm[Hg] No Primary Care Physician [facility] Work Phone: 12-11-2021 14:36-0400 Heart rate 61 /min No Primary Care Physician [facility] Work Phone: 12-11-2021 14:36-0400 Respiratory rate 16 /min No Primary Care Physician [facility] Work Phone: 12-11-2021 14:36-0400 SaO2% (BldA) [Mass fraction] 98 % No Primary Care Physician [facility] Work Phone: 12-11-2021 14:36-0400 Systolic blood pressure 115 mm[Hg] No Primary Care Physician [facility] Work Phone: 11-24-2021 15:29-0400 Body height 172.72 cm No Primary Care Physician [facility] Work Phone: 11-24-2021 15:29-0400 Body mass index (BMI) [Ratio] 20.7 kg/m2 No Primary Care Physician [facility] Work Phone: 11-24-2021 15:29-0400 Body weight 61.68 kg No Primary Care Physician [facility] Work Phone: 11-24-2021 15:29-0400 Diastolic blood pressure 74 mm[Hg] No Primary Care Physician [facility] Work Phone: 11-24-2021 15:29-0400 Heart rate 61 /min No Primary Care Physician [facility] Work Phone: 11-24-2021 15:29-0400 Respiratory rate 18 /min No Primary Care Physician [facility] Work Phone: 11-24-2021 15:29-0400 SaO2% (BldA) [Mass fraction] 99 % No Primary Care Physician [facility] Work Phone: 11-24-2021 15:29-0400 Systolic blood pressure 115 mm[Hg] No Primary Care Physician [facility] Work Phone: 11-06-2021 14:16-0400 Body height 174 cm Linda Cathi DESIGN INTERN.[employer] Work Phone: [facility] 11-06-2021 14:16-0400 Body weight 60.33 kg Linda Cathi [place].[employer] Work Phone: [facility] 11-06-2021 14:16-0400 Diastolic blood pressure 64 mm[Hg] Linda Winkler APRN.[employer] Work Phone: [facility] 11-06-2021 14:16-0400 Heart rate 68 /min Linda Cathi DESIGN INTERN.[employer] Work Phone: [facility] 11-06-2021 14:16-0400 Respiratory rate 16 /min Linda Cathi DESIGN INTERN.[employer] Work Phone: [facility] 11-06-2021 14:16-0400 SaO2% (BldA) [Mass fraction] 98 % Linda Cathi [employer] Work Phone: [facility] 11-06-2021 14:16-0400 Systolic blood pressure 118 mm[Hg] Linda Cathi DESIGN INTERN.[employer] Work Phone: [facility] 10-30-2021 00:18-0400 Diastolic blood pressure 81 mm[Hg] No Primary Care Physician [facility] Work Phone: 10-30-2021 00:18-0400 Heart rate 77 /min No Primary Care Physician [facility] Work Phone: 10-30-2021 00:18-0400 Respiratory rate 20 /min No Primary Care Physician [facility] Work Phone: 10-30-2021 00:18-0400 SaO2% (BldA) [Mass fraction] 96 % No Primary Care Physician [facility] Work Phone: 10-30-2021 00:18-0400 Systolic blood pressure 123 mm[Hg] No Primary Care Physician [facility] Work Phone: 10-29-2021 20:27-0400 Body mass index (BMI) [Ratio] 19.5 kg/m2 No Primary Care Physician [facility] Work Phone: 10-29-2021 20:27-0400 Body temperature 98 [degF] No Primary Care Physician [facility] Work Phone: 10-29-2021 20:27-0400 Body weight 58.51 kg No Primary Care Physician [facility] Work Phone: 10-22-2021 10:31-0400 Body temperature 97.9 [degF] Bjorntodd Calvillo RN Work Phone: [facility] 10-22-2021 10:31-0400 Body weight 59.33 kg Bjorn Most RN Work Phone: [facility] 10-22-2021 10:31-0400 Diastolic blood pressure 64 mm[Hg] Bjorn Most RN Work Phone: [facility] 10-22-2021 10:31-0400 Heart rate 72 /min Bjorn Most RN Work Phone: [facility] 10-22-2021 10:31-0400 Respiratory rate 16 /min Bjorn Most RN Work Phone: [facility] 10-22-2021 10:31-0400 SaO2% (BldA) [Mass fraction] 99 % Bjorn Most RN Work Phone: [facility] 10-22-2021 10:31-0400 Systolic blood pressure 102 mm[Hg] Bjorn Most RN Work Phone: [facility] 10-19-2021 10:47-0400 Body height 172.72 cm No Primary Care Physician [facility] Work Phone: 10-19-2021 10:47-0400 Body mass index (BMI) [Ratio] 20.2 kg/m2 No Primary Care Physician [facility] Work Phone: 10-19-2021 10:47-0400 Body temperature 97.3 [degF] No Primary Care Physician [facility] Work Phone: 10-19-2021 10:47-0400 Body weight 60.55 kg No Primary Care Physician [facility] Work Phone: 10-19-2021 10:47-0400 Diastolic blood pressure 60 mm[Hg] No Primary Care Physician [facility] Work Phone: 10-19-2021 10:47-0400 Heart rate 79 /min No Primary Care Physician [facility] Work Phone: 10-19-2021 10:47-0400 Respiratory rate 18 /min No Primary Care Physician [facility] Work Phone: 10-19-2021 10:47-0400 SaO2% (BldA) [Mass fraction] 98 % No Primary Care Physician [facility] Work Phone: 10-19-2021 10:47-0400 Systolic blood pressure 106 mm[Hg] No Primary Care Physician [facility] Work Phone: 10-18-2021 12:42-0400 Body height 172.72 cm No Primary Care Physician [facility] Work Phone: 10-18-2021 12:42-0400 Body mass index (BMI) [Ratio] 19.5 kg/m2 No Primary Care Physician [facility] Work Phone: 10-18-2021 12:42-0400 Body temperature 97.8 [degF] No Primary Care Physician [facility] Work Phone: 10-18-2021 12:42-0400 Body weight 58.51 kg No Primary Care Physician [facility] Work Phone: 10-18-2021 12:42-0400 Diastolic blood pressure 64 mm[Hg] No Primary Care Physician [facility] Work Phone: 10-18-2021 12:42-0400 Heart rate 79 /min No Primary Care Physician [facility] Work Phone: 10-18-2021 12:42-0400 Respiratory rate 14 /min No Primary Care Physician [facility] Work Phone: 10-18-2021 12:42-0400 SaO2% (BldA) [Mass fraction] 97 % No Primary Care Physician [facility] Work Phone: 10-18-2021 12:42-0400 Systolic blood pressure 88 mm[Hg] No Primary Care Physician [facility] Work Phone: 10-16-2021 23:03-0400 Diastolic blood pressure 71 mm[Hg] No Primary Care Physician [facility] Work Phone: 10-16-2021 23:03-0400 Heart rate 76 /min No Primary Care Physician [facility] Work Phone: 10-16-2021 23:03-0400 Respiratory rate 16 /min No Primary Care Physician [facility] Work Phone: 10-16-2021 23:03-0400 SaO2% (BldA) [Mass fraction] 95 % No Primary Care Physician [facility] Work Phone: 10-16-2021 23:03-0400 Systolic blood pressure 111 mm[Hg] No Primary Care Physician [facility] Work Phone: 10-16-2021 19:47-0400 Body height 172.72 cm No Primary Care Physician [facility] Work Phone: 10-16-2021 19:47-0400 Body mass index (BMI) [Ratio] 20 kg/m2 No Primary Care Physician [facility] Work Phone: 10-16-2021 19:47-0400 Body temperature 98.1 [degF] No Primary Care Physician [facility] Work Phone: 10-16-2021 19:47-0400 Body weight 59.87 kg No Primary Care Physician [facility] Work Phone: 10-16-2021 13:29-0400 Body height 174 cm Linda Cathi THORNE.[employer] Work Phone: [facility] 10-16-2021 13:29-0400 Body weight 61.15 kg Linda Cathi THORNE.[employer] Work Phone: [facility] 10-16-2021 13:29-0400 Diastolic blood pressure 64 mm[Hg] Linda Cathi THORNE.[employer] Work Phone: [facility] 10-16-2021 13:29-0400 Heart rate 72 /min Linda Cathi THORNE.[employer]BER Work Phone: [facility] 10-16-2021 13:29-0400 Respiratory rate 16 /min Linda Cathi THORNE.[employer]BER Work Phone: [facility] 10-16-2021 13:29-0400 SaO2% (BldA) [Mass fraction] 97 % Linda Cathi THORNE.[employer] Work Phone: [facility] 10-16-2021 13:29-0400 Systolic blood pressure 122 mm[Hg] Linda Cathi THORNE.[employer] Work Phone: [facility] 10-15-2021 14:23-0400 Body mass index (BMI) [Ratio] 20.7 kg/m2 No Primary Care Physician [facility] Work Phone: 10-15-2021 14:23-0400 Body temperature 98.6 [degF] No Primary Care Physician [facility] Work Phone: 10-15-2021 14:23-0400 Body weight 61.68 kg No Primary Care Physician [facility] Work Phone: 10-15-2021 14:23-0400 Diastolic blood pressure 68 mm[Hg] No Primary Care Physician [facility] Work Phone: 10-15-2021 14:23-0400 Heart rate 71 /min No Primary Care Physician [facility] Work Phone: 10-15-2021 14:23-0400 Respiratory rate 16 /min No Primary Care Physician [facility] Work Phone: 10-15-2021 14:23-0400 SaO2% (BldA) [Mass fraction] 95 % No Primary Care Physician [facility] Work Phone: 10-15-2021 14:23-0400 Systolic blood pressure 118 mm[Hg] No Primary Care Physician [facility] Work Phone: 10-15-2021 11:58-0400 Body temperature 97.39 [degF] Bjorn Most RN Work Phone: [facility] 10-15-2021 11:58-0400 Body weight 58.97 kg Bjorn Most RN Work Phone: [facility] 10-15-2021 11:58-0400 Diastolic blood pressure 62 mm[Hg] Bjorn Most RN Work Phone: [facility] 10-15-2021 11:58-0400 Heart rate 72 /min Bjorn Most RN Work Phone: [facility] 10-15-2021 11:58-0400 Respiratory rate 16 /min Bjorn Most RN Work Phone: [facility] 10-15-2021 11:58-0400 SaO2% (BldA) [Mass fraction] 97 % Bjorn Most RN Work Phone: [facility] 10-15-2021 11:58-0400 Systolic blood pressure 108 mm[Hg] Bjorn Most RN Work Phone: [facility] 10-09-2021 12:07-0400 Body temperature 97.9 [degF] Bjorn Most RN Work Phone: [facility] 10-09-2021 12:07-0400 Body weight 60.6 kg Bjorn Most RN Work Phone: [facility] 10-09-2021 12:07-0400 Diastolic blood pressure 60 mm[Hg] Bjron Most RN Work Phone: [facility] 10-09-2021 12:07-0400 Heart rate 72 /min Bjorn Most RN Work Phone: [facility] 10-09-2021 12:07-0400 Respiratory rate 16 /min Bjorn Most RN Work Phone: [facility] 10-09-2021 12:07-0400 SaO2% (BldA) [Mass fraction] 99 % Bjorn Most RN Work Phone: [facility] 10-09-2021 12:07-0400 Systolic blood pressure 106 mm[Hg] Bjorn Most RN Work Phone: [facility] 10-06-2021 15:28-0400 Body temperature 98.1 [degF] Bjorn Most RN Work Phone: [facility] 10-06-2021 15:28-0400 Body weight 58.97 kg Bjorn Most RN Work Phone: [facility] 10-06-2021 15:28-0400 Diastolic blood pressure 62 mm[Hg] Bjorn Most RN Work Phone: [facility] 10-06-2021 15:28-0400 Heart rate 84 /min Bjorn Most RN Work Phone: [facility] 10-06-2021 15:28-0400 Respiratory rate 16 /min Bjorn Most RN Work Phone: [facility] 10-06-2021 15:28-0400 SaO2% (BldA) [Mass fraction] 99 % Bjorn Most RN Work Phone: [facility] 10-06-2021 15:28-0400 Systolic blood pressure 108 mm[Hg] Bjorn Most RN Work Phone: [facility] 10-02-2021 17:10-0400 Body temperature 98.1 [degF] Bjorn Most RN Work Phone: [facility] 10-02-2021 17:10-0400 Body weight 59.42 kg Bjorn Most RN Work Phone: [facility] 10-02-2021 17:10-0400 Diastolic blood pressure 76 mm[Hg] Bjorn Most RN Work Phone: [facility] 10-02-2021 17:10-0400 Heart rate 72 /min Bjorn Most RN Work Phone: [facility] 10-02-2021 17:10-0400 Respiratory rate 16 /min Bjorn Most RN Work Phone: [facility] 10-02-2021 17:10-0400 SaO2% (BldA) [Mass fraction] 99 % Bjorn Most RN Work Phone: [facility] 10-02-2021 17:10-0400 Systolic blood pressure 122 mm[Hg] Bjorn Most RN Work Phone: [facility] 09-30-2021 11:48-0400 Body height 172.7 cm Bjorn Most RN Work Phone: [facility] 09-30-2021 11:48-0400 Body temperature 97.9 [degF] Bjorn Most RN Work Phone: [facility] 09-30-2021 11:48-0400 Body weight 60.6 kg Bjorn Most RN Work Phone: [facility] 09-30-2021 11:48-0400 Diastolic blood pressure 64 mm[Hg] Bjorn Most RN Work Phone: [facility] 09-30-2021 11:48-0400 Heart rate 72 /min Bjorn Most RN Work Phone: [facility] 09-30-2021 11:48-0400 Respiratory rate 16 /min Bjorn Most RN Work Phone: [facility] 09-30-2021 11:48-0400 SaO2% (BldA) [Mass fraction] 98 % Bjorn Most RN Work Phone: [facility] 09-30-2021 11:48-0400 Systolic blood pressure 122 mm[Hg] Bjorn Calvillo RN Work Phone: [facility] 09-15-2021 13:37-0400 Body height 174 cm Matt Villegas PA-C Work Phone: [facility] 09-15-2021 13:37-0400 Body temperature 97.81 [degF] Matt Villegas PA-C Work Phone: [facility] 09-15-2021 13:37-0400 Body weight 63.5 kg Matt Villegas PA-C Work Phone: [facility] 09-15-2021 13:37-0400 Diastolic blood pressure 64 mm[Hg] Matt Villegas PA-C Work Phone: [facility] 09-15-2021 13:37-0400 Heart rate 86 /min Matt Villegas PA-C Work Phone: [facility] 09-15-2021 13:37-0400 Respiratory rate 14 /min Matt Villegas PA-C Work Phone: [facility] 09-15-2021 13:37-0400 SaO2% (BldA) [Mass fraction] 98 % Matt Villegas PA-C Work Phone: [facility] 09-15-2021 13:37-0400 Systolic blood pressure 104 mm[Hg] Matt Villegas PA-C Work Phone: [facility] 09-11-2021 14:07-0400 Body height 175.3 cm Linda Winkler APRN.[employer] Work Phone: [facility] 09-11-2021 14:07-0400 Body weight 61.69 kg Linda Winkler APRN.[employer] Work Phone: [facility] 09-11-2021 14:07-0400 Diastolic blood pressure 68 mm[Hg] Linda Winkler APRN.[employer] Work Phone: [facility] 09-11-2021 14:07-0400 Heart rate 68 /min Linda Winkler APRN.[employer] Work Phone: [facility] 09-11-2021 14:07-0400 Respiratory rate 18 /min Linda Winkler DESIGN INTERN.[employer] Work Phone: [facility] 09-11-2021 14:07-0400 SaO2% (BldA) [Mass fraction] 96 % Linda Winkler DESIGN INTERN.[employer] Work Phone: [facility] 09-11-2021 14:07-0400 Systolic blood pressure 100 mm[Hg] Linda Winkler DESIGN INTERN.[facility] Work Phone: [facility] 09-09-2021 08:35-0400 Body mass index (BMI) [Ratio] 21.7 kg/m2 No Primary Care Physician [facility] Work Phone: 09-09-2021 08:35-0400 Body temperature 98.1 [degF] No Primary Care Physician [facility] Work Phone: 09-09-2021 08:35-0400 Body weight 64.86 kg No Primary Care Physician [facility] Work Phone: 09-09-2021 08:35-0400 Diastolic blood pressure 76 mm[Hg] No Primary Care Physician [facility] Work Phone: 09-09-2021 08:35-0400 Heart rate 74 /min No Primary Care Physician [facility] Work Phone: 09-09-2021 08:35-0400 Respiratory rate 18 /min No Primary Care Physician [facility] Work Phone: 09-09-2021 08:35-0400 SaO2% (BldA) [Mass fraction] 96 % No Primary Care Physician [facility] Work Phone: 09-09-2021 08:35-0400 Systolic blood pressure 118 mm[Hg] No Primary Care Physician [facility] Work Phone: 08-18-2021 14:11-0400 Body mass index (BMI) [Ratio] 20.9 kg/m2 No Primary Care Physician [facility] Work Phone: 08-18-2021 14:11-0400 Body weight 63.5 kg No Primary Care Physician [facility] Work Phone: 08-18-2021 14:11-0400 Diastolic blood pressure 62 mm[Hg] No Primary Care Physician [facility] Work Phone: 08-18-2021 14:11-0400 Heart rate 58 /min No Primary Care Physician [facility] Work Phone: 08-18-2021 14:11-0400 Respiratory rate 18 /min No Primary Care Physician [facility] Work Phone: 08-18-2021 14:11-0400 SaO2% (BldA) [Mass fraction] 97 % No Primary Care Physician [facility] Work Phone: 08-18-2021 14:11-0400 Systolic blood pressure 125 mm[Hg] No Primary Care Physician [facility] Work Phone: 08-11-2021 13:42-0400 Body mass index (BMI) [Ratio] 21.1 kg/m2 No Primary Care Physician [facility] Work Phone: 08-11-2021 13:42-0400 Body temperature 98.4 [degF] No Primary Care Physician [facility] Work Phone: 08-11-2021 13:42-0400 Body weight 63.95 kg No Primary Care Physician [facility] Work Phone: 08-11-2021 13:42-0400 Diastolic blood pressure 84 mm[Hg] No Primary Care Physician [facility] Work Phone: 08-11-2021 13:42-0400 Heart rate 61 /min No Primary Care Physician [facility] Work Phone: 08-11-2021 13:42-0400 Respiratory rate 16 /min No Primary Care Physician [facility] Work Phone: 08-11-2021 13:42-0400 SaO2% (BldA) [Mass fraction] 97 % No Primary Care Physician [facility] Work Phone: 08-11-2021 13:42-0400 Systolic blood pressure 120 mm[Hg] No Primary Care Physician [facility] Work Phone: 07-04-2021 20:37-0400 Heart rate 79 /min No Primary Care Physician [facility] Work Phone: 07-04-2021 20:37-0400 Respiratory rate 18 /min No Primary Care Physician [facility] Work Phone: 07-04-2021 20:37-0400 SaO2% (BldA) [Mass fraction] 96 % No Primary Care Physician [facility] Work Phone: 07-04-2021 18:39-0400 Body height 180.34 cm No Primary Care Physician [facility] Work Phone: 07-04-2021 18:39-0400 Body mass index (BMI) [Ratio] 19.5 kg/m2 No Primary Care Physician [facility] Work Phone: 07-04-2021 18:39-0400 Body temperature 97.2 [degF] No Primary Care Physician [facility] Work Phone: 07-04-2021 18:39-0400 Body weight 63.5 kg No Primary Care Physician [facility] Work Phone: 07-04-2021 18:39-0400 Diastolic blood pressure 65 mm[Hg] No Primary Care Physician [facility] Work Phone: 07-04-2021 18:39-0400 Systolic blood pressure 113 mm[Hg] No Primary Care Physician [facility] Work Phone: 06-29-2021 12:59-0400 Diastolic blood pressure 75 mm[Hg] No Primary Care Physician [facility] Work Phone: 06-29-2021 12:59-0400 Heart rate 56 /min No Primary Care Physician [facility] Work Phone: 06-29-2021 12:59-0400 SaO2% (BldA) [Mass fraction] 98 % No Primary Care Physician [facility] Work Phone: 06-29-2021 12:59-0400 Systolic blood pressure 108 mm[Hg] No Primary Care Physician [facility] Work Phone: 06-29-2021 11:21-0400 Respiratory rate 18 /min No Primary Care Physician [facility] Work Phone: 06-29-2021 10:12-0400 Body mass index (BMI) [Ratio] 21.1 kg/m2 No Primary Care Physician [facility] Work Phone: 06-29-2021 10:12-0400 Body temperature 96.2 [degF] No Primary Care Physician [facility] Work Phone: 06-29-2021 10:12-0400 Body weight 63.04 kg No Primary Care Physician [facility] Work Phone: 06-15-2021 14:05-0400 Body temperature 98.9 [degF] No Primary Care Physician [facility] Work Phone: 06-15-2021 14:05-0400 Diastolic blood pressure 76 mm[Hg] No Primary Care Physician [facility] Work Phone: 06-15-2021 14:05-0400 Heart rate 66 /min No Primary Care Physician [facility] Work Phone: 06-15-2021 14:05-0400 Respiratory rate 18 /min No Primary Care Physician [facility] Work Phone: 06-15-2021 14:05-0400 SaO2% (BldA) [Mass fraction] 97 % No Primary Care Physician [facility] Work Phone: 06-15-2021 14:05-0400 Systolic blood pressure 120 mm[Hg] No Primary Care Physician [facility] Work Phone: 06-02-2021 13:06-0500 Body mass index (BMI) [Ratio] 21.2 kg/m2 No Primary Care Physician [facility] Work Phone: 06-02-2021 13:06-0500 Body weight 63.5 kg No Primary Care Physician [facility] Work Phone: 06-02-2021 13:06-0500 Diastolic blood pressure 74 mm[Hg] No Primary Care Physician [facility] Work Phone: 06-02-2021 13:06-0500 Heart rate 70 /min No Primary Care Physician [facility] Work Phone: 06-02-2021 13:06-0500 Respiratory rate 18 /min No Primary Care Physician [facility] Work Phone: 06-02-2021 13:06-0500 SaO2% (BldA) [Mass fraction] 99 % No Primary Care Physician [facility] Work Phone: 06-02-2021 13:06-0500 Systolic blood pressure 127 mm[Hg] No Primary Care Physician [facility] Work Phone: 05-27-2021 06:05-0500 Body weight 63.95 kg No Primary Care Physician [facility] Work Phone: 04-25-2021 17:22-0500 Body mass index (BMI) [Ratio] 21.4 kg/m2 No Primary Care Physician [facility] Work Phone: 04-25-2021 17:22-0500 Body temperature 98.5 [degF] No Primary Care Physician [facility] Work Phone: 04-25-2021 17:22-0500 Body weight 63.95 kg No Primary Care Physician [facility] Work Phone: 04-25-2021 17:22-0500 Diastolic blood pressure 63 mm[Hg] No Primary Care Physician [facility] Work Phone: 04-25-2021 17:22-0500 Heart rate 85 /min No Primary Care Physician [facility] Work Phone: 04-25-2021 17:22-0500 Respiratory rate 16 /min No Primary Care Physician [facility] Work Phone: 04-25-2021 17:22-0500 SaO2% (BldA) [Mass fraction] 98 % No Primary Care Physician [facility] Work Phone: 04-25-2021 17:22-0500 Systolic blood pressure 104 mm[Hg] No Primary Care Physician [facility] Work Phone: 04-23-2021 06:40-0500 Body mass index (BMI) [Ratio] 21.4 kg/m2 No Primary Care Physician [facility] Work Phone: 04-16-2021 14:21-0500 Body mass index (BMI) [Ratio] 21.4 kg/m2 No Primary Care Physician [facility] Work Phone: 04-16-2021 14:21-0500 Body weight 63.95 kg No Primary Care Physician [facility] Work Phone: 04-16-2021 14:21-0500 Diastolic blood pressure 84 mm[Hg] No Primary Care Physician [facility] Work Phone: 04-16-2021 14:21-0500 Heart rate 76 /min No Primary Care Physician [facility] Work Phone: 04-16-2021 14:21-0500 Respiratory rate 17 /min No Primary Care Physician [facility] Work Phone: 04-16-2021 14:21-0500 SaO2% (BldA) [Mass fraction] 97 % No Primary Care Physician [facility] Work Phone: 04-16-2021 14:21-0500 Systolic blood pressure 138 mm[Hg] No Primary Care Physician [facility] Work Phone: 04-16-2021 12:49-0500 Body mass index (BMI) [Ratio] 21.4 kg/m2 No Primary Care Physician [facility] Work Phone: 04-16-2021 12:49-0500 Body weight 63.95 kg No Primary Care Physician [facility] Work Phone: 04-16-2021 12:49-0500 Diastolic blood pressure 78 mm[Hg] No Primary Care Physician [facility] Work Phone: 04-16-2021 12:49-0500 Heart rate 76 /min No Primary Care Physician [facility] Work Phone: 04-16-2021 12:49-0500 Respiratory rate 18 /min No Primary Care Physician [facility] Work Phone: 04-16-2021 12:49-0500 SaO2% (BldA) [Mass fraction] 96 % No Primary Care Physician [facility] Work Phone: 04-16-2021 12:49-0500 Systolic blood pressure 137 mm[Hg] No Primary Care Physician [facility] Work Phone: Encounters Encounter Date Encounter Type Care Provider Facility Start: 01-10-[address] Siva Mathew MD -[facility] Start: 01-10-2025 End: 01-10-[address] Rita Mathew MD -[facility] Work Phone: Start: 01-10-2025 End: 01-10-2025 ambulatory Parish Williamqi Facility:[facility] Start: 12-17-2024 ambulatory PARISH WILLIAMQI DO Facili ty:[facility] Start: 12-10-2024 End: 12-10-2024 ambulatory PARISH PRERNA Facility:[facility] Start: 12-10-2024 End: 12-10-2024 Patient encounter procedure PARISH GRAFF DO [facility] Start: 11-10-2024 End: 11-10-2024 Emergency department patient visit Dr. Parish Graff DO Work Phone: -Emergency Department Work Phone: Start: 10-18-[address] Siva Mathew MD -[facility] Start: 10-18-2024 End: 10-18-2024 Patient encounter procedure Aide MOISE -[facility] Work Phone: Start: 10-18-2024 End: 10-18-[address] Parish Graff DO Work Phone: -[facility] Start: 10-12-2024 End: 10-12-2024 Patient encounter procedure Rosalio JO -[facility] Work Phone: Start: 10-12-2024 End: 10-12-[address] Parish Graff DO Work Phone: -[facility] Start: 10-04-2024 End: 10-04-2024 ambulatory PARISH GRAFF DO Facility:[facility] Start: 10-04-2024 End: 10-04-2024 Patient encounter procedure PARISH GRAFF DO [facility] Start: 09-24-2024 ambulatory Santa Amor ty:[facility] Start: 09-21-2024 End: 09-21-2024 Emergency department patient visit GARY KRUSE DO [facility] Start: 09-11-2024 ambulatory Santa Amor ty:[facility] Start: 08-28-2024 End: 08-28-2024 ambulatory PARISH PRERNA Facility:[facility] Start: 08-28-2024 End: 08-28-2024 Patient encounter procedure PARISH GRAFF DO [facility] Start: 08-04-2024 End: 08-04-2024 Emergency department patient visit DR FRANK GUILLERMO DO [facility] Start: 07-17-2024 End: 07-17-2024 Patient encounter procedure PRESLEY Hawthorne -[facility] Work Phone: Start: 07-17-2024 End: 07-17-2024 ambulatory Parish Prerna Facility:[facility] Start: 07-10-[address] Siva Mathew MD -[facility] Start: 07-10-2024 End: 07-10-2024 Patient encounter procedure Aide Mcdonnell WINDOW/DISTRIBUTION CLERK-C -[facility] Work Phone: Start: 07-10-2024 End: 07-10-2024 ambulatory Parish Thomasko Facility:[facility] Start: 05-30-2024 End: 05-30-2024 ambulatory PARISH THOMASKO DO Facility:[facility] Start: 05-30-2024 End: 05-30-2024 Patient encounter procedure PARISH THOMASKO DO [facility] Start: 05-21-2024 ambulatory Parish Thomasko Facility: [facility] Start: 05-15-2024 End: 05-15-2024 ambulatory Parish Graff Facility:[facility] Start: 05-08-2024 End: 05-08-2024 ambulatory Santa Serranocarolin Facility:[facility] Start: 04-16-2024 End: 04-19-2024 Telephone encounter Rosalva [facility] Start: 04-11-2024 End: 04-11-2024 ambulatory Parish Graff Facility:[facility] Start: 04-10-2024 End: 04-10-2024 ambulatory Parish Graff Facility:[facility] Start: 04-05-2024 End: 04-05-2024 ambulatory Santa Hawthorne Facility:[facility] Start: 03-13-2024 End: 03-13-2024 ambulatory Parish Graff Facility:[facility] Start: 03-12-2024 ambulatory Parish Thomasko Facility: [facility] Start: 02-27-2024 End: 02-27-2024 ambulatory JOHN MATUTE MD Facility:[facility] Start: 02-27-2024 End: 02-27-2024 SAME DAY STAY JOHN MATUTE MD [facility] Start: 02-23-2024 End: 02-23-2024 Admission to establishment JOHN MATUTE MD [facility] Start: 02-23-2024 End: 02-23-2024 ambulatory JOHN MATUTE MD Facility:[facility] Start: 02-13-2024 ambulatory PARISH GRAFF DO Facili ty:[facility] Start: 02-03-2024 ambulatory PARISH GRAFF DO Facili ty:[facility] Start: 02-03-2024 End: 02-03-2024 ambulatory PARISH GRAFF DO Facility:[facility] Start: 02-03-2024 End: 02-03-2024 Patient encounter procedure PARISH GRAFF DO [facility] Start: 01-26-2024 End: 01-26-2024 Office outpatient visit 25 minutes Nilesh Olivas MD Work Phone: [facility] Comment on above: Tremor (Primary Dx); Partial symptomatic epilepsy with complex partial seizures, intractable, without status epilepticus (CMS/HCC) Start: 01-26-2024 End: 01-26-2024 ambulatory NILESH OLIVAS Not Available Start: 01-26-2024 End: 01-26-2024 Bamboo flowsheet Nilesh Olivas MD Work Phone: [facility] Start: 01-26-2024 End: 01-26-2024 Bamboo flowsheet Nilesh Olivas MD Work Phone: [facility] Start: 01-26-2024 End: 02-28-2024 Telephone encounter Nilesh Olivas MD Work Phone: [facility] Start: 11-27-2023 End: 12-02-2023 Refill Lety Whittington NP Work Phone: [facility] Comment on above: Tremor Start: 05-23-2023 End: 05-23-2023 Emergency department patient visit Dr. Radha Quintero Work Phone: [facility]gency [facility] Work Phone: Start: 04-22-2023 End: 04-22-2023 ambulatory LETY WHITTINGTON Not Available Start: 04-20-2023 End: 04-21-2023 ambulatory PARISH GRAFF DO Facility:[facility] Start: 04-20-2023 End: 04-20-2023 Patient encounter procedure PARISH GRAFF DO [facility] Start: 04-05-2023 End: 04-05-2023 Emergency department patient visit PARISH THOMASKO DO Facility:[facility] Start: 03-16-2023 End: 03-17-2023 ambulatory PARISH HALKO DO Facility:[facility] Start: 03-16-2023 End: 03-16-2023 Patient encounter procedure PARISH HALKO DO [facility] Start: 03-10-2023 End: 03-11-2023 ambulatory PARISH WILLIAMKO DO Facility:[facility] Start: 03-10-2023 End: 03-10-2023 Patient encounter procedure PARISH HALKO DO [facility] Start: 03-10-2023 End: 03-10-[address] Radha Quintero Work Phone: [facility] Work Phone: Start: 03-07-2023 End: 03-08-2023 ambulatory PARISH WILLIAMKO DO Facility:[facility] Start: 03-07-2023 End: 03-07-2023 Patient encounter procedure PARISH WILLIAMKO DO [facility] Start: 03-04-2023 End: 03-05-2023 ambulatory PARISH WILLIAMKO DO Facility:[facility] Start: 02-28-2023 End: 03-01-2023 ambulatory PARISH WILLIAMKO DO Facility:[facility] Start: 02-28-2023 End: 02-28-2023 Patient encounter procedure PARISH WILLIAMKO DO [facility] Start: 02-27-2023 End: 02-27-2023 Emergency department patient visit Dr. Radha Quintero Work Phone: [facility] Work Phone: Start: 02-27-2023 End: 02-27-2023 Dr. Radha Quintero Work Phone: [facility]-Emergency Department Work Phone: Start: 02-23-2023 ambulatory PARISH WILLIAMQI MONTERROSO Facili ty:[facility] Start: 02-15-2023 End: 02-15-[address] Radha Qiuntero Work Phone: [facility] Work Phone: Start: 02-15-2023 End: 02-15-[address] Radha Quintero Work Phone: [facility] Start: 02-15-2023 End: 02-15-2023 Dr. Radha Quintero Work Phone: [facility] Start: 01-12-2023 End: 01-12-2023 Dr. Radha Quintero Work Phone: [facility]-Pulmonary Services/Neurology Work Phone: Start: 01-11-2023 End: 01-16-2023 ambulatory PARISH WILLIAMQI MONTERROSO Facility:B Start: 01-11-2023 End: 01-15-2023 Outreach Lab PARISH THOMASQI MONTERROSO [facility] Start: 12-30-2022 End: 12-30-2022 Dr. Radha Quintero Work Phone: [facility]-Pulmonary Medicine [facility] Work Phone: Start: 12-24-2022 End: 12-24-[address] Radha Quintero Work Phone: [facility] Work Phone: Start: 12-24-2022 End: 12-24-2022 Dr. Radha Quintero Work Phone: [facility]-Endoscopy Work Phone: Start: 12-21-2022 Dr. Radha Brown hner Work Phone: [facility]-W[facility]-PMW Start: 12-09-2022 End: 12-09-2022 Emergency department patient visit Dr. Radha Quintero Work Phone: [facility] Work Phone: Start: 12-09-2022 End: 12-09-2022 Dr. Radha Quintero Work Phone: [facility]-Emergency Department Work Phone: Start: 11-29-2022 End: 11-29-2022 Dr. Radha Quintero Work Phone: [facility]-Pulmonary Medicine [facility] Work Phone: Start: 11-18-2022 End: 11-18-2022 Dr. Radha Quintero Work Phone: [facility] Work Phone: Start: 11-16-2022 End: 01-12-2023 ambulatory RADHA QUINTERO MD Facility:R Start: 11-10-2022 End: 11-10-2022 Emergency department patient visit Dr. Radha Quintero Work Phone: [facility]-Emergency Department Work Phone: Start: 11-10-2022 End: 11-10-2022 Dr. Radha Quintero Work Phone: [facility]-Emergency Department Work Phone: Start: 11-08-2022 Non-patient / Non-visit Dr. Kenia Quintero Work Phone: [facility] Start: 11-08-2022 Dr. Radha Brown hner Work Phone: [facility] Start: 11-02-2022 Non-patient / Non-visit Dr. Kenia Quintero Work Phone: [facility] Physicians Work Phone: Start: 11-02-2022 Dr. Radha Brown hner Work Phone: [facility] Inpatient Physicians Work Phone: Start: 11-02-2022 Evaluation and management of inpatient Dr. Radha Quintero Work Phone: [facility] Care Unit Work Phone: Start: 11-02-[address] Aura Quintero Work Phone: [facility] Work Phone: Start: 11-01-2022 End: 11-02-2022 Evaluation and management of inpatient Dr. Radha Quintero Work Phone: [facility] Care [facility] Work Phone: Start: 11-01-2022 End: 11-02-[address] Radha Quintero Work Phone: [facility] Work Phone: Start: 11-01-2022 Non-patient / Non-visit Dr. Kenia Quintero Work Phone: [facility] Inpatient Physicians Work Phone: Start: 11-01-2022 End: 11-02-2022 Dr. Radha Quintero Work Phone: [facility] Care [facility] Work Phone: Start: 10-20-2022 End: 10-20-2022 Emergency department patient visit Dr. Radha Quintero Work Phone: [facility]-Emergency Department Work Phone: Start: 10-20-2022 End: 10-20-2022 Dr. Radha Quintero Work Phone: [facility]-Emergency Department Work Phone: Start: 10-13-2022 End: 10-14-2022 ambulatory SANTA ROJAS MD Facility:A Start: 10-13-2022 End: 10-13-2022 Patient encounter procedure SANTA ROJAS MD [facility] Start: 09-28-2022 End: 09-28-[address] Radha Quintero Work Phone: [facility] Work Phone: Start: 09-28-2022 End: 09-28-[address] Rdaha Quintero Work Phone: [facility] Start: 09-28-2022 End: 09-28-2022 Dr. Radha Quintero Work Phone: [facility] Start: 09-17-2022 End: 10-14-2022 ambulatory RADHA QUINTERO MD Facility:R Start: 09-13-2022 End: 09-15-2022 ambulatory MADHU DENNIS MD Facility:A Start: 09-13-2022 End: 09-15-2022 Observation MADHU DENNIS MD [facility] Start: 09-12-2022 End: 09-13-2022 Emergency department patient visit GARY KRUSE DO Facility:B Start: 09-10-2022 Non-patient / Non-visit Dr. Kenia Quintero Work Phone: [facility] In[facility]icians Work Phone: Start: 09-10-2022 Dr. Radha wolfer Work Phone: [facility] Work Phone: Start: 09-09-2022 End: 09-10-2022 Evaluation and management of inpatient Dr. Radha [facility]inter[facility] Work [facility]: Start: 09-09-2022 End: 09-10-2022 Dr. Radha [facility] Work [facility]: Start: 09-09-2022 End: 09-09-[address] Radha Quintero Work Phone: [facility] Neurology Work Phone: Start: 09-09-2022 End: 09-09-2022 Dr. Radha Quintero Work Phone: [facility] Neurology Work Phone: Start: 09-07-2022 End: 09-07-[address] Radha Quintero Work Phone: [facility] Work Phone: Start: 09-07-2022 End: 09-07-2022 Dr. Radha Quintero Work Phone: [facility] Work Phone: Start: 09-07-2022 End: 09-07-[address] Radha Quintero Work Phone: [facility] Work Phone: Start: 09-07-2022 End: 09-07-2022 Dr. Radha Quintero Work Phone: [facility] Work Phone: Start: 09-05-2022 End: 09-06-2022 Emergency department patient visit Dr. Radha Quintero Work Phone: [facility]-Emergency Department Start: 09-05-2022 End: 09-06-2022 Dr. Radha Quintero Work Phone: [facility]-Emergency Department Work Phone: Start: 07-15-2022 End: 07-15-[address] Radha Quintero Work Phone: [facility] Start: 05-10-2022 End: 05-10-[address] Radha Quintero Work Phone: [facility] Neurology Start: 04-14-2022 End: 04-14-[address] Radha Quintero Work Phone: [facility] [place] Start: 04-11-2022 End: 04-11-2022 Emergency department patient visit Dr. Radha Quintero Work Phone: [facility]-Emergency Department Start: 04-10-2022 End: 04-10-2022 Emergency department patient visit Dr. Radha Quintero Work Phone: [facility]-Emergency Department Start: 04-08-2022 End: 04-08-[address] Radha Quintero Work Phone: [facility] Work Phone: Start: 04-08-2022 End: 04-08-[address] Radha Quintero Work Phone: [facility]-Laboratory, OP Pavilion Start: 04-08-2022 End: 04-08-[address] Radha Quintero Work Phone: [facility] Start: 03-22-2022 End: 03-22-2022 Emergency department patient visit No Primary Care Physician [facility]-Emergency Department Start: 02-10-2022 End: 02-10-2022 Patient encounter procedure No Primary Care Physician [facility] Start: 02-06-2022 End: 02-07-2022 Emergency department patient visit PARISH Kunz [facility] Start: 02-05-2022 End: 02-05-2022 Emergency department patient visit No Primary Care Physician [facility]Emergency Department Start: 02-03-2022 End: 03-03-2022 ambulatory No Primary Care Physician [facility] Work Phone: Start: 02-03-2022 End: 03-03-2022 Discharged Recurring No Primary Care Physician [facility]Cardiac Rehab Start: 02-03-2022 Registered Recurring No Primar y Care Physician [facility] Re[facility] Start: 01-14-2022 End: 01-14-2022 ambulatory No Primary Care Physician [facility] Work Phone: Start: 01-14-2022 End: 01-14-2022 Patient encounter procedure No Primary Care Physician [facility]-Laboratory Start: 01-14-2022 End: 01-14-2022 Patient encounter procedure No Primary Care Physician [facility] Start: 01-13-2022 End: 02-01-2022 Discharged Recurring No Primary Care Physician [facility] Start: 01-13-2022 Registered Recurring No Primar y Care Physician [facility] Start: 01-06-2022 End: 01-06-2022 Patient encounter procedure No Primary Care Physician [facility] Start: 01-01-2022 End: 01-01-2022 ambulatory No Primary Care Physician [facility] Work Phone: Start: 01-01-2022 End: 01-01-2022 Discharged Recurring No Primary Care Physician [facility] Re[facility] Start: 12-28-2021 Registered Recurring No Primar y Care Physician [facility] Re[facility] Start: 12-24-2021 End: 12-24-2021 ambulatory No Primary Care Physician [facility] Work Phone: Start: 12-24-2021 End: 12-24-2021 Patient encounter procedure No Primary Care Physician [facility]Radiology, [facility] Start: 12-24-2021 End: 12-24-2021 Patient encounter procedure No Primary Care Physician [facility] Int Med at [facility] Start: 12-21-2021 Registered Recurring No Primar y Care Physician [facility] Re[facility] Start: 12-17-2021 End: 12-17-2021 ambulatory No Primary Care Physician [facility] Work Phone: Start: 12-17-2021 End: 12-17-2021 Patient encounter procedure No Primary Care Physician [facility] Neurology Start: 12-11-2021 End: 12-11-2021 Patient encounter procedure No Primary Care Physician [facility]Card[facility] Re[facility] Start: 11-24-2021 End: 11-24-2021 ambulatory No Primary Care Physician [facility] Work Phone: Start: 11-24-2021 End: 11-24-2021 Patient encounter procedure No Primary Care Physician [facility] Start: 11-06-2021 End: 11-06-2021 Patient encounter procedure Linda Winkler APRN.CNP Work Phone: [facility] Comment on above: S/P CABG x 3 (Primar y Dx); Coronary artery disease involving salamatof coronary artery of salamatof heart without angina pectoris; Paroxysmal atrial fibrillation (HCC); Chronic obstructive pulmonary disease, unspecified COPD type (HCC); Acute blood loss anemia; Tobacco abuse; Severe protein-calorie malnutrition (HCC) Start: 11-06-2021 End: 11-06-2021 Subsequent hospital visit by physician [facility] Comment on above: 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] Start: 10-29-2021 End: 10-30-2021 Emergency department patient visit No Primary Care Physician [facility]Emergency Department Start: 10-27-2021 Telephone encounter Sudheer Cassidy RN Work Phone: [facility] Comment on above: Home Care (notificat ion of home health nursing discharge) Start: 10-22-2021 Telephone encounter Gregorio ko MD Work Phone: [facility] Comment on above: Cardiac Rehab ([facility] ) Start: 10-22-2021 End: 10-22-2021 Home visit Bjorn Calvillo RN Work Phone: [facility] Comment on above: SN GUTIERREZ DC W VISIT Start: 10-19-2021 End: 10-19-2021 Patient encounter procedure No Primary Care Physician [facility] Med at [facility] Start: 10-18-2021 End: 10-18-2021 Emergency department patient visit No Primary Care Physician [facility]Emergency Department Start: 10-18-2021 End: 10-18-2021 Patient encounter procedure No Primary Care Physician [facility] Start: 10-16-2021 End: 10-16-2021 Emergency department patient visit No Primary Care Physician [facility]Emergency Department Start: 10-16-2021 End: 10-16-2021 Patient encounter procedure Linda Winkler APRN.[employer] Work Phone: [facility] Comment on above: S/P CABG x 3 (Primar y Dx); Coronary artery disease involving salamatof coronary artery of salam[place] heart without angina pectoris; Paroxysmal atrial fibrillation (HCC); Chronic obstructive pulmonary disease, unspecified COPD type (HCC); Acute blood loss anemia; Severe protein-calorie malnutrition (HCC); Tobacco abuse Start: 10-15-2021 End: 10-15-2021 Patient encounter procedure No Primary Care Physician [facility] Internal Medicine Start: 10-15-2021 Telephone encounter Bjorn Calvillo RN Work Phone: [facility] Comment on above: Home Care (pt reques t) Start: 10-15-2021 End: 10-15-2021 Home visit Bjorn Calvillo RN Work Phone: [facility] Comment on above: SN ROUTINE Start: 10-09-2021 End: 10-09-2021 Home visit Bjorn Calvillo RN Work Phone: [facility] Comment on above: SN ROUTINE Start: 10-08-2021 End: 10-08-2021 Patient encounter procedure Linda Winkler APRN.[employer] Work Phone: [facility] Comment on above: S/P CABG x 3 (Primar y Dx); Coronary artery disease involving salamatof coronary artery of salamatof heart without angina pectoris; Paroxysmal atrial fibrillation (HCC); Chronic obstructive pulmonary disease, unspecified COPD type (HCC); Tobacco abuse; Acute blood loss anemia; Severe protein-calorie malnutrition (HCC) Start: 10-06-2021 End: 10-06-2021 Home visit Bjorn Calvillo RN Work Phone: [facility] Comment on above: SN ROUTINE Start: 10-06-2021 Telephone encounter Bjorn Calvillo RN Work Phone: [facility] Comment on above: Home Care (pt questi on) Start: 10-02-2021 End: 10-02-2021 Home visit Bjorn Calvillo RN Work Phone: [facility] Comment on above: SN ROUTINE Start: 09-30-2021 Telephone encounter Bjorn Calvillo RN Work Phone: [facility] Comment on above: Home Care (potential severe drug interaction) Start: 09-30-2021 End: 09-30-2021 Home visit Bjorn Calvillo RN Work Phone: [facility] Comment on above: SN SOC Start: 09-28-2021 Telephone encounter Krunal huffman LPN Work Phone: [facility] Comment on above: Home Care (confirmat ion call) Start: 09-21-2021 Telephone encounter Matt pizano PA-C Work Phone: Urology Comment on above: Results Start: 09-15-2021 End: 09-15-2021 Patient encounter procedure Matt Villegas PA-C Work Phone: Urology Comment on above: BPH with obstruction /lower urinary tract symptoms (Primary Dx); Hematuria, unspecified type; 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 (HCC) Start: 09-14-2021 Telephone encounter Linda Winkler APRN.[employer] Work Phone: [facility] Comment on above: Results Start: 09-11-2021 End: 09-11-2021 Patient encounter procedure Linda Winkler APRN.[employer] Work Phone: [facility] Comment on above: Pre-op examination ( Primary Dx) Start: 09-11-2021 End: 09-11-2021 Preprocedural examination done Linda Winkler APRN.[employer] Work Phone: [facility] Start: 09-09-2021 End: 09-09-2021 Patient encounter procedure No Primary Care Physician [facility] Internal Medicine Start: 09-08-2021 Telephone encounter Gregorio ko MD Work Phone: [facility] Comment on above: Appointment Reschedu led (new surgery date) Start: 08-18-2021 End: 08-18-2021 Patient encounter procedure No Primary Care Physician [facility] Start: 08-14-2021 Patient encounter status Harman Dominguez MD Work Phone: [facility] Start: 08-14-2021 Telephone encounter Gregorio ko MD Work Phone: [facility] Comment on above: Orders Start: 08-11-2021 End: 08-11-2021 Patient encounter procedure No Primary Care Physician [facility] Neurology Start: 07-24-2021 Telephone encounter Gregorio ko MD Work Phone: [facility] Comment on above: Appointment (appoint ment ) Surgery Cancelled; L [facility] Start: 07-23-2021 End: 07-23-2021 [facility] Start: 07-23-2021 End: 07-23-2021 Subsequent hospital visit by physician Ct [facility] Radiology Start: 07-22-2021 Patient encounter status [...] 07-21-2021 Subsequent hospital visit by physician [facility] (I-Stat) Work Phone: Cat Scan Comment on above: 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] Start: 07-16-2021 End: 07-16-2021 ambulatory Respiratory Therapist [facility] Work Phone: Pulmonary Medicine Comment on above: Spirometry Start: 07-16-2021 End: 07-16-2021 Patient encounter procedure Respiratory Therapist [facility] Work Phone: [facility] Start: 07-06-2021 Telephone encounter Gregorio ko MD Work Phone: [facility] Comment on above: Schedule Surgery Start: 07-04-2021 End: 07-04-2021 Emergency department patient visit No Primary Care Physician [facility]Emergency Department Start: 06-29-2021 End: 06-29-2021 Emergency department patient visit No Primary Care Physician [facility]Emergency Department Start: 06-29-2021 Non-patient / Non-visit No Gloria noyola Care Physician [facility] Start: 06-25-2021 Patient encounter status Harman Dominguez MD Work Phone: [facility] Start: 06-25-2021 Telephone encounter Gregorio ko MD Work Phone: [facility] Comment on above: Orders Start: 06-15-2021 End: 06-15-2021 Patient encounter procedure No Primary Care Physician [facility] Neurology Start: 06-02-2021 End: 06-02-2021 Patient encounter procedure No Primary Care Physician [facility] Start: 05-27-2021 End: 05-27-2021 Admission to same day surgery center No Primary Care Physician [facility]Hand Mounter/Special Procedures Start: 05-26-2021 Non-patient / Non-visit No Gloria noyola Care Physician [facility] Start: 04-25-2021 End: 04-25-2021 Emergency department patient visit No Primary Care Physician [facility]Emergency Department Start: 04-16-2021 End: 04-16-2021 Patient encounter procedure No Primary Care Physician [facility], [facility] Start: 04-16-2021 End: 04-16-2021 Patient encounter procedure No Primary Care Physician [facility] Neurology Start: 04-16-2021 End: 04-16-2021 Patient encounter procedure No Primary Care Physician [facility] Start: 06-02-2017 Ambulatory Titi Salinas Facility:[place] Start: 04-27-2017 End: 04-30-2017 Evaluation and management of inpatient JOE REY Facility:[place] Start: 04-26-2017 End: 04-27-2017 Emergency department patient visit NO FAMILY DOCTOR NO FAMILY DOCTOR Facility:[facility] Start: 04-26-2017 Ambulatory PCP UNKNOWN Facility:[id number] Procedures Date Procedure Procedure Detail Performing Clinician Start: 01-10-[address] Parish Graff DO Work Phone: Start: 11-10-2024 Urnls dip stick/tabl et reagent auto microscopy Dr. Parish Graff DO Work Phone: Start: 11-10-[address] Parish Graff DO Work Phone: Start: 11-10-2024 X-ray of chest, PA a nd lateral views Dr. Parish Graff DO Work Phone: Start: 11-10-2024 CT of head without contrast Dr. Parish Graff DO Work Phone: Start: 10-18-[address] Parish Graff DO Work Phone: Start: 10-18-2024 Lymphocyte percent differential count Dr. Parish Graff DO Work Phone: Start: 07-10-[address] Parish Graff DO Work Phone: Start: 07-10-2024 Lymphocyte percent differential count Dr. Parish Graff DO Work Phone: Start: 03-20-2024 Positron emission tomography with computed tomography Dr. Parish Graff DO Work Phone: Start: 03-13-2024 Hepatitis B surface antibody measurement Dr. Parish Graff DO Work Phone: Comment on above: Non Reactive: Not im mune to HBV infection. Equivocal: Unable to determine if anti-HBs is present at levels consistent with immunity. Reactive: Anti-HBs concentration detected at greater than 10 mIU/mL. Individual is considered to be immune to infection with HBV. Start: 03-13-2024 Hepatitis C virus recombinant immunoblot measurement Dr. Parish Graff DO Work Phone: Start: 03-13-2024 Measurement of renal function [...] exam ches t 2 views Linda Winkler APRN.[employer] Work Phone: Start: 10-29-2021 Plain chest X-ray No Pr imary Care Physician Start: 10-08-2021 Ecg routine ecg w/le ast 12 lds trcg only w/o i&r Linda Winkler APRN.[employer] Work Phone: Start: 10-02-2021 Open heart surgery MONTY GRAFF DO Start: 09-28-2021 History of coronary artery bypass grafting S/P CABG x 3 Krunal Flores LPN Work Phone: Start: 09-15-2021 Urnls dip stick/tabl et rgnt auto w/o microscopy Matt Villegas PA-C Work Phone: Start: 09-11-2021 Antibody screen Comment on above: Order Comment: Speci men Type: BLOOD SPECIMENOrdering Facility: [facility] Address: [address] [place] [address] Performed By: #### T [id number] ####[facility] [id number] [address] Start: 09-11-2021 Iadna s aureus ampli fied probe tq Linda Winkler DESIGN INTERN.[employer]BER Work Phone: Start: 09-02-2021 History of coronary artery bypass grafting History of coronary artery bypass surgery No Primary Care Physician Comment on above: RIBEIRO in situ mammary end to side mid LAD; SVG to ascending aorta end to side diagonal 2; and ELIEL ascending aorta end to side diagonal 1 @ [facility] 09/21/21 Start: 07-23-2021 Ct angiography chest w/contrast/noncontrast Liset Ocampo DESIGN INTERN.[employer]BER Work Phone: Start: 07-21-2021 Antibody screen Comment on above: Order Comment: Speci men Type: BLOOD SPECIMEN Ordering Facility: [facility] Address: [address] [place] [address] Performed By: #### T SCR30 #### [facility] CLIA [id number] [address] Start: 07-16-2021 Spmtry w/vc expirato ry abimael w/wo mxml vol vntj Forrest Lott DESIGN INTERN.[employer] Work Phone: Start: 07-04-2021 CT of abdomen [...] Colonoscopy PARISH BINGHAM DO Cardiac care PARISH Martinez O Comment on above: stent placed Cataract care PARISH GRAFF DO Comment on above: bilateral cataract l ens replacement History of coronary artery bypass grafting S/P CABG x 3 Linda Winkler DESIGN INTERN.[employer]BER Work Phone: History of coronary artery bypass grafting Status post coronary artery bypass graft No Primary Care Physician History of coronary artery bypass grafting S/P CABG x 3 Linda Winkler DESIGN INTERN.[employer]BER Work Phone: History of coronary artery bypass grafting S/P CABG x 3 Linda Winkler DESIGN INTERN.[employer]BER Work Phone: History of coronary artery bypass grafting S/P CABG x 3 PARISH GRAFF DO History of coronary artery bypass grafting S/P CABG x 3 PARISH GRAFF DO History of placement of stent for coronary artery disease S/P coronary artery stent placement PARISH GRAFF DO History of placement of stent for coronary artery disease S/P coronary artery stent placement PARISH GRAFF DO SARS-CoV-2 & FLU Ant igen (Rapid) No Primary Care Physician Plan of Treatment Date Care Activity Detail Author Start: 07-04-2025 Lactate dehydrogenase measurement [facility] Start: 11-10-2024 [facility] Start: 11-10-2024 [facility] Start: 10-18-2024 [facility] Start: 09-27-2024 DIABETES SCREEN DIABETES SCREEN [facility] Start: 09-21-2024 DIABETES SCREEN DIABETES SCREEN [facility] Start: 09-11-2024 DIABETES SCREEN DIABETES SCREEN [facility] Start: 07-21-2024 DIABETES SCREEN DIABETES SCREEN [facility] Start: 04-27-2024 End: 04-27-2024 Patient encounter procedure 04/27/2024 1:30 PM EST Office Visit [facility] [address] [place] [address] Lety Whittington NP [address] [place] [address] [facility] Start: 01-26-2024 End: 01-26-2024 Patient encounter procedure 01/26/2024 2:40 PM EDT [facility] [address] [place] [address] Nilesh Olivas MD [address] [place] [address] Arrived [facility] Comment on above: Arrived Start: 05-23-2023 [facility] Start: 05-23-2023 [facility] Start: 02-27-2023 [facility] Start: 02-15-2023 Positron emission tomography with computed tomography [facility] Start: 02-01-2023 PET study for localization of tumor [facility] Start: 01-12-2023 [facility] Start: 12-24-2022 [facility] ebus guided sampl 1/2 node station/strux [facility] Start: 12-24-2022 Patient discharge [facility] Start: 12-22-2022 Primidone measurement [facility] Start: 11-08-2022 Patient referral [facility] Work Phone: Start: 11-02-2022 Patient discharge [facility] Start: 11-02-2022 [facility] Start: 11-02-2022 Telepractice consultation [facility] Start: 11-02-2022 Assessment of risk of venous thromboembolism [facility] Start: 11-02-2022 Insertion of catheter into peripheral vein [facility] Start: 11-02-2022 Measuring intake and output [facility] Start: 11-02-2022 Oxygen therapy [facility] Start: 11-02-2022 Providing care according to standard [facility] Start: 11-02-2022 Provision of activity privileges [facility] Start: 11-02-2022 Seizure precautions [facility] Start: 11-02-2022 [facility] Start: 11-02-2022 Following clinical pathway protocol [facility] Start: 11-02-2022 Patient referral to dietitian [facility] Start: 11-01-2022 Verification routine [facility] Start: 11-01-2022 Admission procedure [facility] Start: 09-10-2022 Patient discharge [facility] Start: 09-10-2022 Seizure precautions [facility] Start: 09-10-2022 Application of intermittent pneumatic compression device [facility] Start: 09-10-2022 Speech therapy assessment [facility] Start: 09-10-2022 Assessment of risk of venous thromboembolism [facility] Start: 09-10-2022 Insertion of catheter into peripheral vein [facility] Start: 09-10-2022 Measuring intake and output [facility] Start: 09-10-2022 Oxygen therapy [facility] Start: 09-10-2022 Providing care according to standard [facility] Start: 09-10-2022 Provision of activity privileges [facility] Start: 09-10-2022 Referral to occupational therapist [facility] Start: 09-10-2022 Referral to service [facility] Start: 09-10-2022 [facility] Start: 09-10-2022 Following clinical pathway protocol [facility] Start: 09-10-2022 [facility] Start: 09-09-2022 Admission procedure [facility] Start: 09-05-2022 Repair complex f/c/c/m/n/ax/g/h/f 2.6-7.5 cm [facility] Start: 09-05-2022 Repair complex f/c/c/m/n/ax/g/h/f ea addl 5 cm/< [facility] Start: 01-14-2022 Patient referral to dietitian [facility] Work Phone: Start: 12-24-2021 Evaluation of diagnostic study results [facility] Work Phone: Start: 12-11-2021 [facility] Work Phone: Start: 12-11-2021 Patient referral to dietitian [facility] Work Phone: Start: 12-03-2021 Influenza vaccination [facility] Start: 11-24-2021 Patient referral [facility] Work Phone: Start: 10-29-2021 [facility] Work Phone: Start: 10-16-2021 US.doppler Lower extremity vein [facility] Work Phone: Start: 10-16-2021 [facility] Start: 09-11-2021 End: 08-21-2022 CBC panel - Blood by Automated count CBC Lab Routine Coronary artery disease involving [place]am[place] coronary artery of [place] heart without angina pectoris Preoperative testing Expected: 09/11/2021, Expires: 08/21/2022 [facility] Work Phone: Comment on above: Expected: 09/11/2021, Expires: 3 Start: 09-11-2021 End: 08-21-2022 Comprehensive metabolic 2000 panel - Serum or Plasma COMP METABOLIC PANEL Lab Routine Coronary artery disease involving [place] coronary artery of [place] heart without angina pectoris Preoperative testing Expected: 09/11/2021, Expires: 08/21/2022 [facility] Work Phone: Comment on above: Expected: 09/11/2021, Expires: 3 Start: 09-11-2021 End: 08-21-2022 PT panel - Platelet poor plasma by Coagulation assay PROTHROMBIN TIME/PT Lab Routine Coronary artery disease involving [place] coronary artery of [place] heart without angina pectoris Preoperative testing Expected: 09/11/2021, Expires: 08/21/2022 [facility] Work Phone: Comment on above: Expected: 09/11/2021, Expires: 3 Start: 09-09-2021 Patient referral [facility] Work Phone: Start: 08-21-2021 End: 10-21-2021 Magnesium [Mass/volume] in Serum or Plasma MAGNESIUM BLD Lab Routine Coronary artery disease involving [place] coronary artery of [place] heart without angina pectoris Preoperative testing Expected: 08/21/2021, Expires: 10/21/2021 [facility] Work Phone: Comment on above: Expected: 08/21/2021, Expires: 2 Start: 08-21-2021 End: 10-21-2021 TYPE AND SCREEN,30 DAY TYPE AND SCREEN,30 DAY Blood Bank Routine Coronary artery disease involving [place] coronary artery of [place] heart without angina pectoris Preoperative testing Expected: 08/21/2021, Expires: 10/21/2021 [facility] Work Phone: Comment on above: Expected: 08/21/2021, Expires: 2 Start: 08-21-2021 End: 10-21-2021 Urinalysis complete panel - Urine UA WITH CULTURE IF INDICATED Lab Routine Coronary artery disease involving [place] coronary artery of [place] heart without angina pectoris Preoperative testing Expected: 08/21/2021, Expires: 10/21/2021 [facility] Work Phone: Comment on above: Expected: 08/21/2021, Expires: 2 Start: 07-27-2021 End: 06-25-2022 CBC panel - Blood by Automated count CBC Lab Routine 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) Preoperative testing Disorder of arteries and arterioles (HCC) Cerebrovascular accident (CVA), unspecified mechanism (HCC) Expected: 07/27/2021, Expires: 06/25/2022 [facility] Work Phone: Comment on above: Expected: 07/27/2021, Expires: 3 Start: 07-27-2021 End: 06-25-2022 Comprehensive metabolic 2000 panel - Serum or Plasma COMP METABOLIC PANEL Lab Routine 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) Preoperative testing Disorder of arteries and arterioles (HCC) Cerebrovascular accident (CVA), unspecified mechanism (HCC) Expected: 07/27/2021, Expires: 06/25/2022 [facility] Work Phone: Comment on above: Expected: 07/27/2021, Expires: 3 Start: 07-27-2021 End: 09-26-2021 Hemoglobin A1c/Hemoglobin.total in Blood HGB A1C Lab Routine 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) Preoperative testing Disorder of arteries and arterioles (HCC) Cerebrovascular accident (CVA), unspecified mechanism (HCC) Expected: 07/27/2021, Expires: 09/26/2021 [facility] Work Phone: Comment on above: Expected: 07/27/2021, Expires: 2 Start: 07-27-2021 End: 09-26-2021 Magnesium [Mass/volume] in Serum or Plasma MAGNESIUM BLD Lab Routine 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) Preoperative testing Disorder of arteries and arterioles (HCC) Cerebrovascular accident (CVA), unspecified mechanism (HCC) Expected: 07/27/2021, Expires: 09/26/2021 [facility] Work Phone: Comment on above: Expected: 07/27/2021, Expires: 2 Start: 07-27-2021 End: 06-25-2022 PT panel - Platelet poor plasma by Coagulation assay PROTHROMBIN TIME/PT Lab Routine 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) Preoperative testing Disorder of arteries and arterioles (HCC) Cerebrovascular accident (CVA), unspecified mechanism (HCC) Expected: 07/27/2021, Expires: 06/25/2022 [facility] Work Phone: Comment on above: Expected: 07/27/2021, Expires: 3 Start: 07-27-2021 End: 06-25-2022 SARS-CoV-2 (COVID-19) RNA [Presence] in Respiratory specimen by LATRICE with probe detection PRE-PROCEDURE & PRE-OPERATIVE COVID Microbiology Routine 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) Preoperative testing Disorder of arteries and arterioles (HCC) Cerebrovascular accident (CVA), unspecified mechanism (HCC) Expected: 07/27/2021, Expires: 06/25/2022 [facility] Work Phone: Comment on above: Expected: 07/27/2021, Expires: 3 Start: 07-27-2021 End: 09-26-2021 Thyrotropin [Units/volume] in Serum or Plasma TSH BLD Lab Routine 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) Preoperative testing Disorder of arteries and arterioles (HCC) Cerebrovascular accident (CVA), unspecified mechanism (HCC) Expected: 07/27/2021, Expires: 09/26/2021 [facility] Work Phone: Comment on above: Expected: 07/27/2021, Expires: 2 Start: 07-27-2021 End: 09-26-2021 TYPE AND SCREEN,30 DAY TYPE AND SCREEN,30 DAY Blood Bank Routine 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) Preoperative testing Disorder of arteries and arterioles (HCC) Cerebrovascular accident (CVA), unspecified mechanism (HCC) Expected: 07/27/2021, Expires: 09/26/2021 [facility] Work Phone: Comment on above: Expected: 07/27/2021, Expires: 2 Start: 07-27-2021 End: 09-26-2021 Urinalysis complete panel - Urine UA WITH CULTURE IF INDICATED Lab Routine 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) Preoperative testing Disorder of arteries and arterioles (HCC) Cerebrovascular accident (CVA), unspecified mechanism (HCC) Expected: 07/27/2021, Expires: 09/26/2021 [facility] Work Phone: Comment on above: Expected: 07/27/2021, Expires: 2 Start: 06-26-2021 End: 08-26-2021 CONFIRM BLOOD TYPE CONFIRM BLOOD TYPE Blood Bank Routine Preoperative testing Expected: 06/26/2021, Expires: 08/26/2021 [facility] Work Phone: Comment on above: Expected: 06/26/2021, Expires: 2 Start: 06-02-2021 Patient referral [facility] Work Phone: Start: 05-12-2021 ANNUAL PCP TEAM CHRONIC DISEASE VISIT ANNUAL PCP TEAM CHRONIC DISEASE VISIT [facility] Start: 04-04-2021 ADVANCE DIRECTIVE DISCUSSION ADVANCE DIRECTIVE DISCUSSION [facility] Start: 12-03-2020 Influenza vaccination INFLUENZA (#1) [facility] Start: 07-31-2019 PNEUMOVAX AGE 65 AND OVER WITH 5YR LOOKBACK (#1) PNEUMOVAX AGE 65 AND OVER WITH 5YR LOOKBACK (#1) [facility] Start: 2009 Influenza vaccination LUNG CANCER SCREENING [facility] Start: 2009 PROSTATE CANCER SCREENING DISCUSSION PROSTATE CANCER SCREENING DISCUSSION [facility] Start: 2004 Influenza vaccination LUNG CANCER SCREENING [facility] Start: 2004 SHINGRIX VACCINE (1 of 2) SHINGRIX VACCINE (1 of 2) [facility] Start: 07-31-1999 COLOGUARD (FIT-DNA) COLOGUARD (FIT-DNA) [facility] Start: 07-31-1999 Colonoscopy COLONOSCOPY [facility] Start: 07-31-1999 COLORECTAL CANCER SCREENING COLORECTAL CANCER SCREENING [facility] Start: 07-31-[address] COLONOGRAPHY [facility] Start: 07-31-1999 DIABETES SCREEN DIABETES SCREEN [facility] Start: 07-31-1999 FECAL OCCULT BLOOD FECAL OCCULT BLOOD [facility] Start: 07-31-1999 SIGMOIDOSCOPY SIGMOIDOSCOPY [facility] Start: 1989 LIPID SCREEN LIPID SCREEN [facility] Start: 1984 Zoledronic acid therapy ALPHA-1 ANTITRYPSIN DEFICIENCY SCREENING [facility] Start: 1973 Urine microalbumin profile DTAP,TDAP,TD (1 - Tdap) [facility] Start: 1972 Hepatitis B surface antibody level LDL CHOLESTEROL [facility] Start: 1972 HEPATITIS C SCREENING HEPATITIS C SCREENING [facility] Start: 1966 Adult depression screening assessment DEPRESSION SCREENING [facility] Start: 1960 PNEUMOCOCCAL: 65+ (1 - PCV) PNEUMOCOCCAL: 65+ (1 - PCV) [facility] Start: 07-31-1959 COVID-19 VACCINE (#1) COVID-19 VACCINE (#1) [facility] Start: 07-31-1959 COVID-19 VACCINE (1) COVID-19 VACCINE (1) [facility] Start: 01-29-1955 COVID-19 VACCINE (#1) COVID-19 VACCINE (#1) [facility] Start: 1954 ABDOMINAL AORTIC ANEURYSM SCREENING ABDOMINAL AORTIC ANEURYSM SCREENING [facility] Bacteria identified in Urine by Culture URINE CULTURE Microbiology Routine Hematuria, unspecified type 09/15/2021 2:21 PM EDT [facility] Work Phone: Blood ammonia measurement [facility] Work Phone: Blood ammonia measurement [facility] Blood ammonia measurement [facility] Blood chemistry [facility] Work Phone: CARDIAC REHAB II OUT PT ([place]) CARDIAC REHAB II OUTPT ([place]) BIC Routine S/P CABG x 3 Ordered: 10/16/2021 [facility] Work Phone: Comment on above: Ordered: 10/16/2021 CBC W Auto Different ial panel - Blood [facility] CBC W Auto Different ial panel - Blood [facility] CBC W Auto Different ial panel - Blood [facility] Complete blood count [facility] metabo lic 1999 panel - Serum or Plasma [facility] lic 1999 panel - Serum or Plasma [facility] CT Abdomen W contrast IV [facility] Work Phone: End: 08-21-2022 Ct angiography chest w/contrast/noncontrast CTA CHEST (GATED) WO/W IVCON Radiology Routine 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) Preoperative testing Disorder of arteries and arterioles (HCC) 1 Occurrences starting 07/22/2021 until 08/21/2022 [facility] Work Phone: Comment on above: 1 Occurrences starting 07/22/2021 until 08/21/2022 CT Chest [facility] CT Chest WO contrast [facility] Electroencephalogram [facility] Work Phone: Evaluation of diagno stic study results [facility] Work Phone: End: 10-16-2022 EXERCISE STRESS ECG (WITHOUT IMAGING) EXERCISE STRESS ECG (WITHOUT IMAGING) Cardiology Routine S/P CABG x 3 1 Occurrences starting 10/16/2021 until 10/16/2022 [facility] Work Phone: Comment on above: 1 Occurrences starting 10/16/2021 until 10/16/2022 Lactate dehydrogenas e measurement [facility] Lamotrigine measurement [facility] Work Phone: Lamotrigine measurement [facility] Lamotrigine measurement [facility] Lamotrigine measurement [facility] Magnesium [Mass/volu me] in Serum or Plasma [facility] Partial thromboplast in time, activated [facility] Patient Education [facility] Work Phone: Patient referral [facility] Work Phone: PHENobarbital [Mass/ volume] in Serum or Plasma [facility] PHENobarbital [Prese nce] in Serum or Plasma [facility] Platelets [#/volume] in Blood [facility] Positron emission to mography with computed tomography [facility] POST VOID RESIDUAL POST VOID RES IDUAL Procedures Routine Hematuria, unspecified type Ordered: 09/15/2021 [facility] Work Phone: Comment on above: Ordered: 09/15/2021 Primidone [Mass/volu me] in Serum or Plasma [facility] Primidone measurement [facility] Prostate specific an tigen measurement [facility] Prothrombin time [facility] End: 11-16-2022 Radiologic exam chest 2 views XR CHEST 2V FRONTAL/LAT Radiology Routine S/P CABG x 3 1 Occurrences starting 10/16/2021 until 11/16/2022 [facility] Work Phone: Comment on above: 1 Occurrences starting 10/16/2021 until 11/16/2022 Radiologic exam ches t 2 views XR CHEST 2V FRONTAL/LAT Radiology Routine S/P CABG x 3 11/06/2021 2:02 PM EDT [facility] Work Phone: Thyroid stimulating hormone measurement [facility] Vitamin D, 25-hydrox y measurement [facility] Immunizations Immunization Date Immunization Notes Care Provider Fa cility 01-12-2024 Pneumococcal conjuga te PCV20, polysaccharide DBS348 conjugate, adjuvant, PF; Translations: [Prevnar 20] PARISH GRAFF DO [facility] 01-12-2024 influenza, high dose seasonal, preservative-free; Translations: [Fluad PF Prefilled Syringe ] PARISH GRAFF DO [facility] 02-05-2022 tetanus toxoid, redu chantel diphtheria toxoid, and acellular pertussis vaccine, adsorbed No Primary Care Physician [facility] 01-02-2018 Influenza virus vaccine No P [facility] Physician [facility] Payers Date Payer Category Payer Self-pay [id number] 2024 Private Health Insurance [facility] [id number] 2024 Unknown [id number] 2024 Self-pay [id number] 2023 Unknown [id number] 2022 Medicare (Managed Care) [facility] MEDICARE [id number] 2022 Unknown [id number] 2019 Medicare [id number] 2019 Medicare [id number] 2018 Medicaid [id number]. [id number] 2018 Medicare [id number] 1.2.840.683733.1.13.159.2. [id number] 1954 Unknown [id number] 2.16.840.1.098773.3.579.2. 1954 Unknown [id number] 2.16840.1.477988.3.579.2. 1954 Unknown [id number] 2.16840.1.250737.3.579.2. 1954 Unknown [id number] 2.16840.1.113627.3.579.2. 1954 Unknown [id number] 2.16.840.1.631661.3.579.2. 1954 Unknown [id number] 2.16.840.1.544272.3.579.2. 1954 Unknown [id number] 2.16.840.1.909632.3.579.2. 1954 Unknown [id number] 2.16.840.1.714803.3.579.2. 62 1954 Unknown [id number] 2.16.840.1.001844.3.579.2. 1954 Unknown [id number] 2.16.840.1.992028.3.579.2. 62 1954 Unknown [id number] 2.16.840.1.150126.3.579.2. 62 1954 Unknown [id number] 2.16.840.1.942462.3.579.2. 62 1954 Unknown [id number] 2.16.840.1.651202.3.579.2. 1954 Unknown [id number] 2.16.840.1.552777.3.579.2. 1259 1954 Unknown [id number] 2.16.840.1.856448.3.579.2. 1259 1954 Unknown [id number] 2.16.840.1.873683.3.579.2. 1954 Unknown [id number] 2.16.840.1.211160.3.579.2. 1954 Unknown [id number] 2.16.840.1.818012.3.579.2. 1954 Unknown [id number] 2.16.840.1.527904.3.579.2. 1954 Unknown [id number] 2.16.840.1.024737.3.579.2. 1954 Unknown [id number] 2.16.840.1.739036.3.579.2. 1954 Unknown [id number] 2.16.840.1.643136.3.579.2. 1954 Unknown [id number] 2.16.840.1.103539.3.579.2. 1954 Unknown [id number] 2.16.840.1.360443.3.579.2. 1954 Unknown [id number] 2.16.840.1.825804.3.579.2. 1954 Unknown [id number] 2.16.840.1.910726.3.579.2. 1954 Unknown [id number] 2..840.1.073720.3.579.2. 627 1954 Unknown [id number] 2..840.1.137285.3.579.2. 627 1954 Unknown [id number] 2.16.840.1.422395.3.579.2. 627 Unknown [id number] Unknown [id number] 2.16.840.1.855270.3.579.2. 462 Unknown [id number] 2..840.1.930979.3.579.2. 462 Unknown [id number] 2.840.1.729248.3.579.2. 462 Unknown [id number] 2.840.1.072602.3.579.2. 462 Unknown [id number] 2.840.1.607732.3.579.2. 462 Unknown [id number] 2.840.1.258608.3.579.2. 462 Unknown [id number] 2.840.1.943491.3.579.2. 462 Unknown [id number] 2..840.1.676342.3.579.2. 462 Unknown [id number] 2.16.840.1.135419.3.579.2. 462 Unknown [id number] 2.840.1.942195.3.579.2. 462 Unknown [id number] 2.16.840.1.871855.3.579.2. 462 Unknown [id number] 2.16.840.1.537213.3.579.2. 462 Unknown [id number] 2.16.840.1.876590.3.579.2. 462 Unknown [id number] 2.16.840.1.003514.3.579.2. 462 Unknown [id number] 2.16.840.1.508427.3.579.2. 462 Unknown [id number] 2.16.840.1.461301.3.579.2. 462 Unknown [id number] 2.16.840.1.786398.3.579.2. 462 Unknown [id number] 2.16.840.1.250223.3.579.2. 462 Social History Date Type Detail Facility Start: 02-04-2017 End: 11-23-2022 Tobacco smoking status NHIS Smokes tobacco daily [facility] End: 04-04-1950 History of tobacco use Cigarette Smoker [facility] Start: 02-04-2017 End: 01-26-2024 Cigarettes smoked current (pack per day) - Reported 1.5 [facility] Start: 02-04-2017 End: 11-23-2022 Tobacco use and exposure Smokeless tobacco non-user [facility] Start: 06-25-2021 End: 11-06-2021 Alcohol intake Current drinker of alcohol (finding) [facility] Start: 06-15-2021 History SDOH Alcohol Comment 0-2 drinks per day [facility] Start: 1955 Sex Assigned At Not on file [facility] Start: 06-15-2021 End: 11-06-2021 Exposure to SARS-CoV-2 (event) Not sure [facility] Start: 07-04-2021 End: 05-23-2023 Tobacco smoking status NHIS Unknown if ever smoked [facility] Start: 08-21-2020 Occasional [facility] Start: 08-21-2020 None [facility] Start: 02-12-2018 Friends [facility] Start: 08-21-2020 Cigarettes [facility] Start: 1955 Sex Assigned At Male W [facility] Start: 07-10-2021 End: 07-20-2021 Exposure to SARS-CoV-2 (event) Unable to assess [facility] Work Phone: Start: 07-24-2021 History SDOH Alcohol Comment 1 drink per month [facility] Start: 10-13-2022 Tobacco smoking status [facility] Start: 01-11-2023 End: 11-10-2024 Tobacco smoking status Heavy tobacco smoker (finding) [facility] Start: 04-22-2023 End: 01-26-2024 Alcoholic beverage intake Lifetime non-drinker (finding) [facility] Start: 04-22-2023 End: 01-26-2024 Tobacco use panel [facility] Start: 05-13-2005 Sex Male (finding) [facility] Equipment Procedure Code Equipment Code Equipment Origin al Text Equipment Identifier Dates Low Profile Ster nal X-Plate 8 Holes [id number] Start: 09-21-2021 See Instructions , dispense 200 glucose test strips; check blood sugar twice daily (fasting and before bed), 3 refills, dx E16.2, # 200 EA, 3 Refill(s), Pharmacy: [facility], Hypoglycemia, 176.5, cm, 03/04/23 8:32:00 EST, Height, 67.4, kg, 03/04/23 8:32:00 EST, Dosing Weight Start: 03-04-2023 See Instructions , dispense 200 lancets; check blood sugar twice daily (fasting and before bed), 3 refills, dx E16.2, # 200 EA, 3 Refill(s), Pharmacy: [facility], Hypoglycemia, 176.5, cm, 03/04/23 8:32:00 EST, Height, 67.4, kg, 03/04/23 8:32:00 EST, Dosing Weight Start: 03-04-2023 See Instructions , dispense 200 glucose test strips; check blood sugar twice daily (fasting and before bed), 3 refills, dx E16.2, # 200 EA, 3 Refill(s), Pharmacy: [facility], Hypoglycemia, 176.5, cm, 03/04/23 8:32:00 EST, Height, 67.4, kg, 03/04/23 8:32:00 EST, Dosing Weight Start: 03-04-2023 See Instructions , dispense 200 lancets; check blood sugar twice daily (fasting and before bed), 3 refills, dx E16.2, # 200 EA, 3 Refill(s), Pharmacy: [facility], Hypoglycemia, 176.5, cm, 03/04/23 8:32:00 EST, Height, 67.4, kg, 03/04/23 8:32:00 EST, Dosing Weight Start: 03-04-2023 See Instructions , dispense 200 glucose test strips; check blood sugar twice daily (fasting and before bed), 3 refills, dx E16.2, # 200 EA, 3 Refill(s), Pharmacy: [place] [id number], Hypoglycemia, 176.5, cm, 03/04/23 8:32:00 EST, Height, 67.4, kg, 03/04/23 8:32:00 EST, Dosing Weight Start: 03-04-2023 See Instructions , dispense 200 lancets; check blood sugar twice daily (fasting and before bed), 3 refills, dx E16.2, # 200 EA, 3 Refill(s), Pharmacy: [place] [id number], Hypoglycemia, 176.5, cm, 03/04/23 8:32:00 EST, Height, 67.4, kg, 03/04/23 8:32:00 EST, Dosing Weight Start: 03-04-2023 See Instructions , dispense 200 glucose test strips; check blood sugar twice daily (fasting and before bed), 3 refills, dx E16.2, # 200 EA, 3 Refill(s), Pharmacy: [place] [address], Hypoglycemia, 176.5, cm, 03/04/23 8:32:00 EST, Height, 67.4, kg, 03/04/23 8:32:00 EST, Dosing Weight Start: 03-04-2023 See Instructions , dispense 200 lancets; check blood sugar twice daily (fasting and before bed), 3 refills, dx E16.2, # 200 EA, 3 Refill(s), Pharmacy: [place] [address], Hypoglycemia, 176.5, cm, 03/04/23 8:32:00 EST, Height, 67.4, kg, 03/04/23 8:32:00 EST, Dosing Weight Start: 03-04-2023 See Instructions , dispense 200 glucose test strips; check blood sugar twice daily (fasting and before bed), 3 refills, dx E16.2, # 200 EA, 3 Refill(s), Pharmacy: [place] [address], Hypoglycemia, 176.5, cm, 03/04/23 8:32:00 EST, Height, 67.4, kg, 03/04/23 8:32:00 EST, Dosing Weight Start: 03-04-2023 See Instructions , dispense 200 lancets; check blood sugar twice daily (fasting and before bed), 3 refills, dx E16.2, # 200 EA, 3 Refill(s), Pharmacy: [place] [address], Hypoglycemia, 176.5, cm, 03/04/23 8:32:00 EST, Height, 67.4, kg, 03/04/23 8:32:00 EST, Dosing Weight Start: 03-04-2023 See Instructions , dispense 200 glucose test strips; check blood sugar twice daily (fasting and before bed), 3 refills, dx E16.2, # 200 EA, 3 Refill(s), Pharmacy: [place] [address], Hypoglycemia, 176.5, cm, 03/04/23 8:32:00 EST, Height, 67.4, kg, 03/04/23 8:32:00 EST, Dosing Weight Start: 03-04-2023 See Instructions , dispense 200 lancets; check blood sugar twice daily (fasting and before bed), 3 refills, dx E16.2, # 200 EA, 3 Refill(s), Pharmacy: [place] [address], Hypoglycemia, 176.5, cm, 03/04/23 8:32:00 EST, Height, 67.4, kg, 03/04/23 8:32:00 EST, Dosing Weight Start: 03-04-2023 See Instructions , dispense 200 glucose test strips; check blood sugar twice daily (fasting and before bed), 3 refills, dx E16.2, # 200 EA, 3 Refill(s), Pharmacy: [place] [address], Hypoglycemia, 176.5, cm, 03/04/23 8:32:00 EST, Height, 67.4, kg, 03/04/23 8:32:00 EST, Dosing Weight Start: 03-04-2023 See Instructions , dispense 200 lancets; check blood sugar twice daily (fasting and before bed), 3 refills, dx E16.2, # 200 EA, 3 Refill(s), Pharmacy: [place] [address], Hypoglycemia, 176.5, cm, 03/04/23 8:32:00 EST, Height, 67.4, kg, 03/04/23 8:32:00 EST, Dosing Weight Start: 03-04-2023 See Instructions , dispense 200 glucose test strips; check blood sugar twice daily (fasting and before bed), 3 refills, dx E16.2, # 200 EA, 3 Refill(s), Pharmacy: [place] [address], Hypoglycemia, 176.5, cm, 03/04/23 8:32:00 EST, Height, 67.4, kg, 03/04/23 8:32:00 EST, Dosing Weight Start: 03-04-2023 See Instructions , dispense 200 lancets; check blood sugar twice daily (fasting and before bed), 3 refills, dx E16.2, # 200 EA, 3 Refill(s), Pharmacy: [place] [address], Hypoglycemia, 176.5, cm, 03/04/23 8:32:00 EST, Height, 67.4, kg, 03/04/23 8:32:00 EST, Dosing Weight Start: 03-04-2023 See Instructions , dispense 200 glucose test strips; check blood sugar twice daily (fasting and before bed), 3 refills, dx E16.2, # 200 EA, 3 Refill(s), Pharmacy: [place] [address], Hypoglycemia, 176.5, cm, 03/04/23 8:32:00 EST, Height, 67.4, kg, 03/04/23 8:32:00 EST, Dosing Weight Start: 03-04-2023 See Instructions , dispense 200 lancets; check blood sugar twice daily (fasting and before bed), 3 refills, dx E16.2, # 200 EA, 3 Refill(s), Pharmacy: [place] [address], Hypoglycemia, 176.5, cm, 03/04/23 8:32:00 EST, Height, 67.4, kg, 03/04/23 8:32:00 EST, Dosing Weight Start: 03-04-2023 See Instructions , dispense 200 glucose test strips; check blood sugar twice daily (fasting and before bed), 3 refills, dx E16.2, # 200 EA, 3 Refill(s), Pharmacy: [place] [address], Hypoglycemia, 176.5, cm, 03/04/23 8:32:00 EST, Height, 67.4, kg, 03/04/23 8:32:00 EST, Dosing Weight Start: 03-04-2023 See Instructions , dispense 200 lancets; check blood sugar twice daily (fasting and before bed), 3 refills, dx E16.2, # 200 EA, 3 Refill(s), Pharmacy: [place] [address], Hypoglycemia, 176.5, cm, 03/04/23 8:32:00 EST, Height, 67.4, kg, 03/04/23 8:32:00 EST, Dosing Weight Start: 03-04-2023 See Instructions , dispense 200 glucose test strips; check blood sugar twice daily (fasting and before bed), 3 refills, dx E16.2, # 200 EA, 3 Refill(s), Pharmacy: [place] [address], Hypoglycemia, 176.5, cm, 03/04/23 8:32:00 EST, Height, 67.4, kg, 03/04/23 8:32:00 EST, Dosing Weight Start: 03-04-2023 See Instructions , dispense 200 lancets; check blood sugar twice daily (fasting and before bed), 3 refills, dx E16.2, # 200 EA, 3 Refill(s), Pharmacy: [place] [address], Hypoglycemia, 176.5, cm, 03/04/23 8:32:00 EST, Height, 67.4, kg, 03/04/23 8:32:00 EST, Dosing Weight Start: 03-04-2023 See Instructions , dispense 200 glucose test strips; check blood sugar twice daily (fasting and before bed), 3 refills, dx E16.2, # 200 EA, 3 Refill(s), Pharmacy: [place] [address], Hypoglycemia, 176.5, cm, 03/04/23 8:32:00 EST, Height, 67.4, kg, 03/04/23 8:32:00 EST, Dosing Weight Start: 03-04-2023 See Instructions , dispense 200 lancets; check blood sugar twice daily (fasting and before bed), 3 refills, dx E16.2, # 200 EA, 3 Refill(s), Pharmacy: [place] [address], Hypoglycemia, 176.5, cm, 03/04/23 8:32:00 EST, Height, 67.4, kg, 03/04/23 8:32:00 EST, Dosing Weight Start: 03-04-2023 See Instructions , dispense 200 glucose test strips; check blood sugar twice daily (fasting and before bed), 3 refills, dx E16.2, # 200 EA, 3 Refill(s), Pharmacy: [facility], Hypoglycemia, 176.5, cm, 03/04/23 8:32:00 EST, Height, 67.4, kg, 03/04/23 8:32:00 EST, Dosing Weight Start: 03-04-2023 See Instructions , dispense 200 lancets; check blood sugar twice daily (fasting and before bed), 3 refills, dx E16.2, # 200 EA, 3 Refill(s), Pharmacy: [facility], Hypoglycemia, 176.5, cm, 03/04/23 8:32:00 EST, Height, 67.4, kg, 03/04/23 8:32:00 EST, Dosing Weight Start: 03-04-2023 Goals Date Patient Goal Desired Activity /State Functional Status Date Assessment Result Facility 08-04-2024 Functional Status Standard Safet y ID band on, Allergy Band on, Call device within reach, Bed in low position, Bedside Cart Locked, Safety level maintained [facility] 08-04-2024 Functional Status [facility] 02-27-2024 Functional Status bilateral knee high applied/on [facility] 02-27-2024 Functional Status Maintained, More than 8 hours [facility] 02-23-2024 Functional Status Sensory Deficits None A [facility] 11-02-2022 Functional status Ambulates [facility] Work Phone: 09-15-2022 Functional Status Done [facility] 09-15-2022 Functional Status Room check performed [facility] 09-15-2022 Functional Status bilateral knee high [facility] 09-14-2022 Functional Status [facility] 09-14-2022 Functional Status [facility] 09-14-2022 Functional Status Mod I [facility] 09-14-2022 Functional Status [facility] 09-14-2022 [facility] Status [facility] 09-10-2022 Functional status Ambulates;Assi st with Urinal;Stand with Urinal [facility] Work Phone: Mental Status Date Assessment Result Facility 11-10-2024 Cognitive function Voice/Name [facility] Work Phone: 08-04-2024 Mental Status Oriented x 4 [facility] 08-04-2024 [facility]-27[facility] Status [facility] 02-27-2024 Mental Status [facility] 05-23-2023 Cognitive function Voice/Name [facility] Work Phone: 02-27-2023 Cognitive function Awake;Alert;Follows Co mmands [facility] Work Phone: 12-24-2022 Cognitive function Appropriate;Drowsy [facility] Work Phone: 12-24-2022 Cognitive function Person;Place;Time [facility] Work Phone: 12-09-2022 Cognitive function Touch/Shaking [facility] Work Phone: 11-10-2022 Cognitive function Awake;Alert;A ppropriate;Follow s Commands [facility] Work Phone: 11-02-2022 Cognitive function Voice/Name [facility] Work Phone: 11-01-2022 Cognitive function Voice/Name [facility] Work Phone: 10-20-2022 Cognitive function Voice/Name;Touch/[facility] Work Phone: 09-15-2022 Mental Status [facility] x [facility] 09-15-2022 Mental Status [facility] 09-14-2022 Mental Status [facility] 09-13-2022 Mental Status [facility] 09-10-2022 Cognitive function Voice/Name [facility] Work Phone: 04-11-2022 Cognitive function Voice/Name [facility] Work Phone: 02-05-2022 Cognitive function Level Of Cons ciousness Awake;Alert;Appropriate [facility] Work Phone: 10-29-2021 Cognitive function Voice/Name [facility] Work Phone: 06-29-2021 Cognitive function Level Of Cons ciousness Awake;Alert;Appropriate;Follow s Commands [facility] Work Phone: Clinical Notes 05-12-2020 to 01-10-2025 Note Date & Type Note Facility 01-10-2025 Progress note [facility] 12-10-2024 Note Exam Date Time Procedure Performing Provider Status 12/10/24 9:17 AM BD Bone Density DEXA Axial Skeleton ANISHA CANTU DO; Auth (Verified) [id number] ORIGINAL EXAMINATION: BONE DENSITOMETRY 12/10/2024 9:17 am TECHNIQUE: A bone density dual x-ray absorptiometry (DEXA) scan was performed of the axial (e.g. hips, spine) and/or appendicular (e.g. radius) skeleton as appropriate. COMPARISON: None HISTORY: ORDERING SYSTEM PROVIDED HISTORY: Reason for Exam: Osteoporosis Screening screening FINDINGS: T Score Left Femoral Neck: -1.3 Left Femoral Neck: 0.758 (g/cm2) T Score Left Hip: -1.1 Left Hip: 0.873 (g/cm2) T Score Lumbar Spine: -1.9 Lumbar Spine: 0.881 (g/cmd2) FRAX: 10 year fracture risk assessment Major osteoporotic fracture: 4.8% Hip fracture: 1.4% IMPRESSION: Osteopenia by WHO criteria. World Health Organization criteria: (Comparing with young normal sex matched population) - Normal: T-score at or above -1 SD (standard deviation) - Osteopenia: T-score between -1 and -2.5 SD - Osteoporosis: T-score at or below -2.5 SD The NOF recommends that FDA-approved medical therapies be considered in post-menopausal women and men age >/= 50 years with a: * Hip or vertebral fracture, or * T-score of /= 20% for major osteoporotic fractures or * >/= 3% for hip fractures All treatment decisions require clinical judgement and consideration of individual patient factors, including patient preferences, comorbidities, previous drug use, risk factors not captured in the FRAX registered model (e.g., frailty, falls, vitamin D deficiency, increased bone turnover, interval significant decline in bone density) and possible under- or over-estimation of fracture risk by FRAX. Interpreted by: Anisha Cantu DO Preliminary Report By: Anisha Cantu DO Electronically signed By Anisha Cantu DO Dictated Date: 12/10/2024 9:25:11 AM Prelim Date: 12/10/2024 9:25:58 AM Sign Date: 12/10/2024 9:25:58 AM Ordering Provider: PARISH GRAFF [facility]08-09-2025 Discharge summary [facility] Medical Records Department [address] [place] [address] Emergency Department Summary 11/10/24 MR#: [id number] Acct: [id number] Name: RADHA BRENNAN Rep #:[id number] : 1955 69 From: Arben Orourke DO PCP: Dr. Parish Graff DO Status:REG ER Location: ED HPI History of Present Illness Chief Complaint: Dizziness Narrative Narrative: Patient is a 69-year-old male with past medical history of iron deficiency anemia, GERD, small cellB lymphoma, alcohol use, hypercholesteremia, migraine headache, Parkinson's disease, hypertension, seizure, hyperlipidemia, CVA who presented to the emergency department with a chief complaint of almost passing out. Patient apparently according to EMS notes that he went to the bathroom stood up andbecame dizzy patient states that this happened before and he statesthat he is unsure when his symptoms started. Per EMS the patient was at his baseline. [facility] Medical History Small lymphocytic lymphoma Prediabetes [...] collapse Seizure Hyperlipidemia Atherosclerotic heart disease of [place] coronary artery without angina pectoris Chronic back pain Atrial septal aneurysm Abnormal electrocardiogram CVA (cerebral vascular accident) Nicotine dependence Home Medications ?Medication ?Instructions ?Recorded ?Last Taken ?Type acetaminophen 500 mg capsule 1,000 mg (2 x 500 mg) PO Q6H PRN 02/24/22 Unknown Rx pain #120 caps folic acid 1 mg tablet 1 mg PO DAILY supplement #90 tabs 03/30/22 Unknown Rx magnesium oxide 400 mg (241.3 mg 400 mg PO DAILY suppl ement #90 tabs 03/30/22 Unknown Rx magnesium) tablet ascorbate calcium (vitamin C) 500 500 mg PO DAILY maggie min #90 tabs 06/16/22 Unknown Rx mg tablet aspirin 81 mg tablet,delayed 81 mg PO DAILY heart heal th #90 06/16/22 12/17/22 Rx release (Adult Aspirin Regimen) tabs ferrous sulfate 325 mg (65 mg 325 mg PO DAILY suppleme nt #90 tabs 06/16/22 Unknown Rx iron) tablet (FeroSul) multivitamin with folic acid 400 1 tab PO DAILY vitami n #90 tabs 06/16/22 Unknown Rx mcg tablet (Daily-Tin (with folic acid)) lamotrigine 100 mg tablet 100 mg PO BID seizures #60 t abs 09/09/22 Unknown Rx front wheeled walker #1 ea 11/26/22 Unknown Rx escitalopram oxalate 10 mg tablet 10 mg PO DAILY #90 t abs 12/15/22 Unknown Rx (Lexapro) thiamine HCl (vitamin B1) 100 mg 100 mg PO BID supplem ent 12/22/22 Unknown History tablet atorvastatin 80 mg tablet 80 mg PO QDAY 07/28/23 Unkno wn History metoprolol succinate 25 mg 12.5 mg PO QDAY 07/28/23 Un known History tablet,extended release 24 hr epinephrine 0.3 mg/0.3 mL 0.3 mg IM ONCE 03/12/24 Unkn own History injection, auto-injector (EpiPen 2-Sebastian) mirtazapine 30 mg tablet 30 mg PO QDAY 03/12/24 Unkno wn History pantoprazole 40 mg tablet,delayed 40 mg PO QDAY Unknown History release sennosides 8.6 mg tablet (senna) 8.6 mg PO QDAY Unknown History levetiracetam 500 mg tablet 500 mg PO BID 03/13/24 Unk nown History pramipexole 0.125 mg tablet 0.125 mg PO TID 03/13/24 U nknown History primidone 50 mg tablet 50 mg PO Q8H 04/05/24 Unknow n History nitroglycerin 0.4 mg sublingual 0.4 mg sublingual Q5-1 5M PRN chest 04/10/24 Unknown Rx tablet (Nitrostat) pain #25 tabs budesonide 160 mcg-glycopyr 9 2 inh inhalation BID #10 .7 grams 07/18/24 Unknown Rx mcg-formot 4.8 mcg/actuation HFA inhaler (Breztri Aerosphere) Allergy/AdvReac Type Severity Reaction Status Date / Time bee venom protein (honey bee) Allergy Severe Anaphylaxis Verified 10/18/24 13:34 tuberculin, purified protein Allergy Severe Swelling Verified 10/18/24 13:34 deriva Family History Mother Myocardial infarction Cancer Diabetes COPD (chronic obstructive pulmonary disease) Brother Myocardial infarction Cancer Diabetes Sister Cancer Diabetes Heart disease Father Lung cancer Surgical History History of cardiac catheterization Hx of neck surgery History of coronary artery bypass surgery (~09/21/21) S/P triple vessel bypass Stented coronary artery (10/06/17) History of lumbar puncture (~04/2017) finger surgery lymph node resection Social History household members: family Smoking Status: Heavy Smoker (>10/day) Tobacco: How many years used: 61 Electronic Cigarette Use: not used second hand exposure: Yes alcohol intake: former year quit: 2014 details: Patient reduced his alcohol intake when 'his lady passed in 2014' substance use type: does not use caffeine: Yes Type: carbonated beverages and coffee ROS ROS ED ROS Narrative Constitutional: Denies any headache, lightness, fever, chills Eyes: Denies change in vision double vision blurry vision Cardiovascular: Denies chest pain or palpitations Respiratory: Denies coughing wheezing shortness of breath Abdomen: Denies nausea vomit diarrhea : Denies any urinary symptoms Neurological: Denies any numbness, weakness, tingling Musculoskeletal: Denies any back pain Skin: Denies any rashes or lesions EXAM Physical Exam Narrative Exam Narrative: General: Patient was lying in bed rest comfortably did not appear to be in acutedistress Head: Atraumatic, normocephalic Eyes: PERRL bilaterally, EOMI bilaterally, no conjunctival injection noted Neck: Soft, supple, trachea midline Cardiovascular: Patient is bradycardic Respiratory: Clear to auscultation bilaterally Abdomen: Soft, nondistended, nontender to palpation Extremities: Patient moving all extremities on exam Neurological: Patient follow commands knew that he was at the hospital was confused on the year Skin: Warm, dry, intact no rashes lesions noted Const Vital Signs: 11/10/24 00:11 11/10/24 00:29 11/10/24 01:14 Temperature 97.7 F L Temperature Source Oral Pulse Rate 56 L 57 L Respiratory Rate 15 16 Blood Pressure 130/72 H Blood Pressure Mean 91 Pulse Ox 96 96 99 Oxygen Delivery Method Room Air Room Air 11/10/24 01:15 11/10/24 01:31 11/10/24 01:45 Temperature Temperature Source Pulse Rate 59 L 53 L 52 L Respiratory Rate 16 15 13 Blood Pressure Blood Pressure Mean Pulse Ox 99 99 99 Oxygen Delivery Method 11/10/24 02:00 Temperature Temperature Source Pulse Rate 54 L Respiratory Rate 14 Blood Pressure Blood Pressure Mean Pulse Ox 99 Oxygen Delivery Method MDM MDM MDM Narrative Medical decision making narrative: Patient is a 69-year-old male who presented to the emergency department the chief complaint of going to the bathroom standing up and having a near syncopal episode. On the differential diagnosis includes but not limited to dehydration,orthostatic hypotension, ACS, pneumothorax, generalized weakness, alcohol abuse. Once workup is obtained reviewed he will be reevaluated. Patient be given IV fluids. Patient's CBC reviewed and showed a white blood count of 16,000 he has chronically elevated white blood cell count according to previous blood draws, hemoglobin stable 13.2, platelet count normal at 217. Patient's INR normal at 1.1, PT 14.7. Patient sodium was normal at 141, potassium normal 3.7, creatinine was 0.94. Patient's troponin was 9 with a delta troponin of 9, EKG showed sinus bradycardia with a rate of 56 bpm with a ND interval that is normalat 172. Patient's urinalysis pending however he wants to go home and he does not have any urinary symptoms at this point in time . Patient's CT head and brain without contrast was reviewed which showed no acute intracranial findings. Patient chest x-ray reviewed by myself by radiology showed no acute cardiopulmonary processes. On reevaluation the patient he will to go home and he states that he feels much better. He ambulated well here in the emergency department without any difficulty no hypoxia no tachycardia. Discussed the results with the patient and family members at bedside they are agreeable with this plan. He is advised to follow-up with his doctor in the outpatient setting return with worsening symptoms or any concerns. All questionconcerns answered he is discharged home in stable condition Lab Data Labs: Laboratory Results - last 24 hr 11/10/24 11/10/24 11/10/24 00:26 01:35 02:40 WBC 16.6 H RBC 3.81 L Hgb 13.2 Hct 38.9 L MCV 102.1 H MCH 34.6 H MCHC 33.9 RDW Std Deviation 49.1 H RDW Coeff of Verito 13.0 Plt Count 217 MPV 9.9 Immature Gran % (Auto) 0.200 Neut % (Auto) 20.7 L Lymph % (Auto) 59.7 H [place] % (Auto) 12.4 H Eos % (Auto) 6.9 H Baso % (Auto) 0.1 Absolute Neuts (auto) 3.4 Absolute Lymphs (auto) 9.90 H Nucleated RBC % 0 Differential Comment SCANNED Diff Path Review August foll PT 14.7 INR 1.1 APTT 22.6 L Sodium Cancelled 141 Potassium Cancelled 3.7 Chloride Cancelled 105 Carbon Dioxide Cancelled 26.2 Anion Gap Cancelled 10 BUN Cancelled 18 Creatinine Cancelled 0.94 Estim Creat Clear Calc 61.35 65.26 Est GFR (MDRD) Non-Af Cancelled 87 BUN/Creatinine Ratio Cancelled 18.5 Glucose Cancelled 80 Calcium Cancelled 8.6 Troponin T High Sens 9 Troponin T Hi Sens 2 Hr 9 Radiography Diagnostic Testing: Clinical Impression(s) from Imaging Studies Brain CT 11/10/24 00:29 IMPRESSION: No acute intracranial findings Reading Location: [place] [address] Chest X-Ray 11/10/24 01:24 IMPRESSION: No acute findings Reading Location: [place] [address] Discharge Plan Triage Chief Complaint: Dizziness ED Provider: Arben Orourke Dx/Rx/DC Orders Clinical Impression: Near syncope, History of seizure, Hypertension, History of CVA (cerebrovascularaccident) Prescriptions: No Action lamotrigine 100 mg tablet 100 mg PO BID Qty: 60 5RF primidone 50 mg tablet 50 mg PO Q8H Rx Instructions: 50mg twice daily and 75 mg at bedtime metoprolol succinate 25 mg tablet extended release 24 hr 12.5 mg PO QDAY atorvastatin 80 mg tablet 80 mg PO QDAY nitroglycerin [Nitrostat] 0.4 mg tablet, sublingual 0.4 mg sublingual Q5-15M PRN (Reason: chest pain) Qty: 25 3RF Rx Instructions: do not exceed 3 doses per episode levetiracetam 500 mg tablet 500 mg PO BID pramipexole 0.125 mg tablet 0.125 mg PO TID epinephrine [EpiPen 2-Sebastian] 0.3 mg/0.3 mL auto-injector 0.3 mg IM ONCE Rx Instructions: as a single dose; may repeat once mirtazapine 30 mg tablet 30 mg PO QDAY pantoprazole 40 mg tablet,delayed release (DR/EC) 40 mg PO QDAY sennosides [senna] 8.6 mg tablet 8.6 mg PO QDAY Breztri Aerosphere 160-9-4.8 mcg/actuation HFA aerosol inhaler 2 inh inhalation BID Qty: 10.7 11RF thiamine HCl (vitamin B1) 100 mg tablet [...] 1 tab PO DAILY Qty: 90 3RF (DME) front wheeled walker See Rx Instructions .Route .MEDSUPPLY Qty: 1 0RF Rx Instructions: As directed escitalopram oxalate [Lexapro] 10 mg tablet 10 mg PO DAILY Qty: 90 3RF Primary Care Provider: Parish Graff Referrals: Parish Graff DO [Primary Care Provider] - Activity Restrictions/Additional Instructions: Follow-up with your doctor in the outpatient setting. Return with worsening symptoms or any concerns. Your blood work, chest x-ray, EKG and CT of your headdid not show any acute findings. Ensure you are drinking plenty of water. Print Language: Chilean Disposition Disposition: Home, Self Care What to do if you have Problems For any increased pain, shortness of breath, bleeding, nausea or vomiting, chestpain, or any unexpected problems, contact your Primary Care Provider. Call [facility] ([phone]) or report tothe closest Emergency Room. Call 911 if necessary. 11/10/24316 Cosigner Signature (if applicable): CC: Dr. Parish Graff DO ~ Signed [facility]08-09-2025 Radiology Diagnostic study note [facility] Imaging Services [address], [place] [address] Chest PA and Lateral MR#: [id number] Acct: [id number] Name: RADHA BRENNAN Michelle Rep #: [id number] : 1955 M 69 From: Ann-Marie Aguilar MD PCP: Dr. Parish Graff DO Status: REG ER Study:Chest PA and Lateral Date of Exam: 11/10/24 Exam# [id number] Ordering Dr: Anna Orourke DO PROCEDURE: CHEST PA AND LATERAL 11/10/2024 REASON FOR EXAM: CHEST PAIN TECHNIQUE: CHEST PA AND LATERAL COMPARISON: 05/23/2023 FINDINGS: Normal heart size. Status post CABG. Status post coronary stenting. Surgical clips right axilla. Well inflated lungs. Mild emphysema and smoking-related interstitial lung disease. No consolidation, effusion, or pneumothorax. RAD/Chest PA and Lateral IMPRESSION: No acute findings Reading Location: [facility] CC: Dr. Parish Graff DO; Dr. Arben Orourke DO ~ Design Analyst: Signed [facility]08-09-2025 Radiology Diagnostic study note [facility] Imaging Services [address] [place] [address] [id number] Brain/Head without Contrast MR#: [id number] Acct: [id number] Name: RADHA BRENNAN Rep #: [id number] : 1955 M 69 From: Ann-Marie Aguilar MD PCP: Dr. Parish Graff DO Status: PRE ER Study:Brain/Head without Contrast Date of Exa m: 11/10/24 Exam# [id number] Ordering Dr: Anna Orourke DO PROCEDURE: BRAIN/HEAD WITHOUT CONTRAST 11/10/2024 REASON FOR EXAM: AMS TECHNIQUE: BRAIN/HEAD WITHOUT CONTRAST Coronal and Sagittal reconstruction series were provided. One or more dose reduction techniques were used (e.g., Automated exposure control, adjustment of the mA and/or kV according to patient size, use of iterative reconstruction technique. RADIATION DOSE SUMMARY: CTDlvol: 45 mGy DLP: 830 mGycm COMPARISON: 02/27/2023 FINDINGS: Diffuse atrophy. Old right posterior watershed region infarct. No acute abnormal brain densities. No intracranial hemorrhage. No hydrocephalus or midline shift. No acute scalp or skull pathology. Bilateral lens extraction. Clear sinuses. CT/Brain/Head without Contrast IMPRESSION: No acute intracranial findings Reading Location: [facility] CC: Dr. Parish Graff DO; Dr. Arben Orourke DO ~ Design Analyst: Signed [facility]07-17-2025 Progress [facility] [address] 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 Patient reports enlarged lymph nodes within bilateral axilla and groin are unchanged in size and remain nontender. 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 CLERK-C Cosigner Signature: Date (if applicable) CC: ~ [facility]07-17-2025 Progress note Author Aide Mcdonnell [facility] Services Note Date/Time October 18, 2024 2:03 pm [facility] [address] [address] OFFICE VISIT Date of Service: 10/18/24 1324 MR#: [id number] Acct: [id number] Name: RADHA BRENNAN Rep #: [id number] : 1955 From: Aide Taylor WINDOW/DISTRIBUTION CLERK WINDOW/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 Chronic back [...] 10/18/24 Rx mcg-formot 4.8 mcg/actuation HFA inhaler ([employer]) Have you fallen in the past year?: [...] 10/18/24 1403 <Electronically signed by Aide ramsey NP, NP-C> Date _ Aide Mcdonnell NP, NP-C Cosigner Signature: Date (if applicable) CC: ~ [facility] Work Phone: 1(880) 726-877007-11-2025 Evaluation note* Diagnosis Onset Date Resolution Status Admit Date 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 October 2:39pm Hyperlipidemia chronic October 12, 2024 2:39pm Nicotine dependence chronic October 12, 2024 2:39pm Postoperative atrial fibrillation resolved October 12, 2024 2:39pm Small lymphocytic lymphoma chronic October 18, 2024 12:10pm Small lymphocytic lymphoma chronic January 10, 2025 2:11pm [facility] Work Phone: 1(406) 606-535207-03-2025 Note* Exam Date Time Procedure Performing Provider Status 10/04/24 11:[address] Head or Brain w/o Contrast Valentin JAMES MD; Auth (Verified) [id number] ORIGINAL EXAMINATION: CT OF THE HEAD WITHOUT [...] 10/04/2024 11:49:57 AM Ordering Provider: PARISH GRAFF [facility]06-20-2025 Hospital Discharge instructions Patient Education 09/21/2024 [...] a towel soaked in hot water. Or, sewing pattern layout technician the shower and direct the warm spray onto your face. Using a vaporizer along with a menthol rub at nightmay also help soothe symptoms. An expectorant with guaifenesin may help thin nasal mucus and help your sinuses drain fluids. You can use an ynem-scg-sbrvrie decongestant, unless a similar medicine was prescribed [...] decongest ants. They can raise blood pressure.) Uqtf-nck-sozurhx antihistamines may help if allergies contributed to [...] up to date with of your vaccines. 9877-2299 [employer]. [address] [place] [address], [place] [address]. All rights reserved. This information is not intended as a substitute for professional medical care. Always follow yourhealthcare professional's instructions. 09/21/2024 18:58:03 Bronchitis, No Antibiotic [...] exposed to secondhand smoke. You may use zzyz-bgq-gqevdar medicine to control fever or pain, unless [...] loosen secretions in the nose and lungs. Cwah-cqt-yrcevnt cough, cold, and sore-throat medicines will not [...] Trouble breathing, wheezing, or pain with breathing 0173-[address] [employer] [place] [address]. All rights reserved. This information is not intended as a substitute for professional medical care. Always follow yourhealthcare professional's instructions. Follow Up Care 09/21/2024 15:50:54 With:PARISH GRAFF DO Address: [address] [place] [phone] When:2-4 days [facility] 06-20-2025 Note Discharge Instructions Thank you for allowing [facility] to assist you with your healthcare needs. The following is importantdischarge information regarding your hospital visit. Diagnosis from Today's Visit Bronchitis Sinusitis What to Do Next Instructions from Your Care Team No qualifying data available. Post Acute Orders No qualifying data available. You Need to Schedule the Following Appointments Follow Up with PARISH GRAFF DO When:Within 2-4 days Where:[address] [place] [phone] Allergies Bee Stings Unknown, Swelling tuberculin purified [...] a towel soaked in hot water. Or, sewing pattern layout technician the shower and direct the warm spray onto your face. Using a vaporizer along with a menthol rub at nightmay also help soothe symptoms. An expectorant with guaifenesin may help thin nasal mucus and help your sinuses drain fluids. You can use an erqm-wsv-wlizlfo decongestant, unless a similar medicine was prescribed [...] decongest ants. They can raise blood pressure.) Nivr-zmg-xnxqooa antihistamines may help if allergies contributed to [...] up to date with of your vaccines. 0412-5969 [employer]. [address] [place] [address]. All rights reserved. This information is not [...] exposed to secondhand smoke. You may use hika-lkq-ilrshkh medicine to control fever or pain, unless [...] loosen secretions in the nose and lungs. Jzmm-xzw-qoajwpd cough, cold, and sore-throat medicines will not [...] Trouble breathing, wheezing, or pain with breathing 1514-9338 [employer]. [address] [place] [address], [place] [address]. All rights reserved. This information is not intended as a substitute for professional medical care. Always follow yourhealthcare professional's instructions. Additional Information VACCINATE! IT SAVES LIVES! Members of the community who have not yet received the COVID-19 vaccine and would like to receive it can visit one of [facility] vaccine clinics. There are many vaccine clinic locations within the [facility]. For locations and available times, please visit www.gettheshot.coronavirus.[place].gov/. It is important to note that some COVID mobile vaccine clinics are held outdoors and may be canceled in rainy or stormy conditions. To learn more about pediatric vaccinations (ages 5-11), we invite you to visit the [facility] webpage. https://www.Bohemian Guitar[employer].org/pages/3167-Urrre-Fcddwezncww-Exnkvdaiqf-Hlxgh-Wil stions.htmlTo learn more about the COVID-19 vaccine, we invite you to visit the CDC website for a list of frequently asked questions. https://www.cdc.gov/coronavirus/2019-ncov/vaccines/faq.html [facility] Patient Portal Access Instructions: Stay connected with your healthcare team and access your personal medical information anytime with the [facility] Patient Portal. If you would like a full copy of your medical records please contact the [facility] Medical Records Department Tuesday through Tuesday between 8a.m. and 4:30p.m. Please follow the directions below to access the portal: 1.Access the email account you provided upon registration to the hospital.2.Look for an invitation email from [facility].3.Open the email and access the invitation link: Accept Invitation to [facility]4.Fill in the required pineda to create your account. Sign into [email or web address] with your username and password that you [...] you will allow to register on the [facility] Patient Portal for access to your information. You can also access the [facility] Patient Portal on the Tethis. Simply click on Health Records under [email or web address] and then click on the Bridget logo. HOW TO SAFELY DISPOSE OF PRESCRIPTION [...] Call your local pharmacy or go to http://Smallable.e-Zassi/5M3Sl2w to find one close to you.3.Make use of household items: Use cat litter or old coffee grounds to dispose medications if other options arenot available. Mix your drugs with these household products, seal them in an airtight container andthrow it into the garbage. Call [facility]: [phone] to be sure your drugs can be [...] aware that I should contact my doctor. 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/Accountant Auditor Signature: Date/Time: Relationship to Patient: Witness Name/Signature: Date/Time: [facility]06-20-2025 Note* Exam Date Time Procedure Performing Provider Status 09/21/24 6:[address] Head or Brain w/o Contrast ANASTACIO RAMOS MD; Auth (Verified) [id number] ORIGINAL EXAMINATION: CT OF THE HEAD WITHOUT [...] Date: 09/21/2024 6:23:23 PM Ordering Provider: GARY [facility]06-20-2025 Note* Exam Date Time Procedure Performing Provider Status 09/21/24 6:02 PM XR Chest 1 View KIM THOMAS DO; [place] (Verified) [id number] ORIGINAL EXAMINATION: ONE XRAY VIEW OF THE [...] Date: 09/21/2024 6:08:55 PM Ordering Provider: GARY [facility]06-20-2025 Note* Exam Date Time Procedure Performing Provider Status 09/21/24 5:59 PM XR Spine Lumbar Ap/Lat ATIF RAMOS MD; Auth (Verified) [id number] ORIGINAL EXAMINATION: 2 XRAY VIEWS OF THE [...] Date: 09/21/2024 6:08:32 PM Ordering Provider: GARY [facility]06-20-2025 Note* Exam Date Time Procedure Performing Provider Status 09/21/24 4:27 PM EKG [ED AOH] - GARY GHOSH [facility] (Verified) ECG Final Report Sinus rhythm Probable left atrial enlargement LAD, consider left anterior fascicular block Probable anteroseptal infarct, old Electronic Signature: GARY KRUSE DO 09/21/2024 17:41:35 [facility]05-08-2025 Note. 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 Confirmation of suspected ESBL production in progress. [...] Locations *1: This test was performed at: [facility], [address] [place] [address], [phone] , [facility]05-03-2025 Hospital Discharge instructions Patient Education 08/04/2024 15:46:17 [...] problems caused by scarring or long-term infections. 9324-7478 [employer]. [address] [place] [address]. All rights reserved. This information is not intended as a substitute for professional medical care. Always follow yourhealthcare professional's instructions. Follow Up Care 08/04/2024 13:04:23 With:PARISH GRAFF DO Address: [address] [place] [phone]- [phone] When:2-4 days [facility] 05-03-2025 Emergency department Discharge summary Discharge Instructions Thank you for allowing [facility] to assist you with your healthcare needs. The following is importantdischarge information regarding your hospital visit. Diagnosis from Today's Visit UTI (urinary tract infection), uncomplicated What to Do Next Instructions from Your Care Team No qualifying data available. Post Acute Orders No qualifying data available. You Need to Schedule the Following Appointments Follow Up with PARISH GRAFF DO When:Within 2-4 days Where:[address] [place] [phone] Allergies Bee Stings Unknown, Swelling tuberculin purified protein derivative Unknown Medications Please ask your primary doctor or pharmacist before taking any other medication not listed, including over the counter drugs, herbal medications, vitamins and or supplements as they may interact [facility] medications. What How Much When Why [...] problems caused by scarring or long-term infections. 1192-6299 [employer]. [address] [place] [address], [place] [address]. All rights reserved. This information is not intended as a substitute for professional medical care. Always follow yourhealthcare professional's instructions. Additional Information VACCINATE! IT SAVES LIVES! Members of the community who have not yet received the COVID-19 vaccine and would like to receive it can visit one of [facility] vaccine clinics. There are many vaccine clinic locations within the [facility]. For locations and available times, please visit www.gettheshot.coronavirus.[place].gov/. It is important to note that some COVID mobile vaccine clinics are held outdoors and may be canceled in rainy or stormy conditions. To learn more about pediatric vaccinations (ages 5-11), we invite you to visit the [facility] webpage. https://www.Bohem[employer].org/pages/2625-Mefxo-Ghvrbiptsns-Toktbbnyhw-Rbzbc-Kei stions.htmlTo learn more about the COVID-19 vaccine, we invite you to visit the CDC website for a list of frequently asked questions. https://www.cdc.gov/coronavirus/2019-ncov/vaccines/faq.html [facility] Patient Portal Access Instructions: Stay connected with your healthcare team and access your personal medical information anytime with the [facility] Patient Portal. If you would like a full copy of your medical records please contact the [facility] Medical Records Department Tuesday through Tuesday between 8a.m. and 4:30p.m. Please follow the directions below to access the portal: 1.Access the email account you provided upon registration to the hospital.2.Look for an invitation email from [facility].3.Open the email and access the invitation link: Accept Invitation to [facility]4.Fill in the required pineda to create your account. Sign into [email or web address] with your username and password that you [...] you will allow to register on the [facility] Patient Portal for access to your information. You can also access the [facility] Patient Portal on the Tethis. Simply click on Health Records under HealthData and then click on the Bridget logo. HOW TO SAFELY DISPOSE OF PRESCRIPTION [...] Call your local pharmacy or go to http://Smallable.e-Zassi/4K1Ve4v to find one close to you.3.Make use of household items: Use cat litter or old coffee grounds to dispose medications if other options arenot available. Mix your drugs with these household products, seal them in an airtight container andthrow it into the garbage. Call [facility]: [phone] to be sure your drugs can be [...] aware that I should contact my doctor. Patient/Accountant Auditor Signature: Date/Time: Relationship to Patient: Witness Name/Signature: Date/Time: [facility]05-03-2025 Note* Exam Date Time Procedure Performing Provider Status 08/04/24 2:[address] Abd/Pelvis w/ IV Contrast Only MILDRED PAPPAS MD; Auth (Verified) [id number] ORIGINAL EXAMINATION: CT OF THE ABDOMEN AND [...] Date: 08/04/2024 3:08:59 PM Ordering Provider: FRANK GUILLERMO [place] [address]-15-2025 Evaluation note* Diagnosis Onset Date Resolution Status Admit Date Solitary lung nodule acute Apri l 2024 2:32pm COPD (chronic obstructive pulmonary disease) chronic July 17, 2 025 2:32pm Nicotine dependence, cigaret renay, uncomplicated chronic July 17, 2024 2:32pm 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 October 12, 2024 2:39pm Hyperlipidemia chronic October 12, 2024 2:39pm Nicotine dependence chronic October 12, 2024 2:39pm Postoperative atrial fibrillation resolved October 12, 2024 2:39pm Small lymphocytic lymphoma chronic October 18, 2024 12:10pm [facility] Work Phone: 1(128) 467-998104-08-2025 Evaluation note* Diagnosis Onset Date Resolution Status [...] 2024 2:39pm 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 October 12, 2024 2:39pm Atrial septal aneurysm chronic Ju 2024 2:39pm Hyperlipidemia chronic October 12, 2024 2:39pm Nicotine dependence chronic October 12, 2024 2:39pm [facility] Work Phone: 1(277) 312-524904-08-2025 Evaluation note* Diagnosis Onset Date Resolution Status Admit Date Small lymphocytic lymphoma chronic July 10, 2024 7:24am Solitary lung nodule acute Apri l 2024 2:32pm COPD (chronic obstructive pulmonary disease) chronic July 17, 2 025 2:32pm Nicotine dependence, cigaret renay, uncomplicated chronic July 17, 2024 2:32pm 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 October 12, 2024 2:39pm Hyperlipidemia chronic October 12, 2024 2:39pm Nicotine dependence chronic October 12, 2024 2:39pm Postoperative atrial fibrillation resolved October 12, 2024 2:39pm Small lymphocytic lymphoma chronic October 18, 2024 12:10pm [facility] Work Phone: 1(187) 550-636202-26-2025 Note* Exam Date Time Procedure Performing Provider Status 05/30/24 1:19 PM MRI Brain w/o Contrast RICHMOND ALVARADO MD; Auth (Verified) [id number] ORIGINAL EXAMINATION: MRI OF THE BRAIN WITHOUT [...] Date: 05/30/2024 3:56:02 PM Ordering Provider: PARISH [facility]01-13-2025 Telephone encounter Note* Telephone Encounter - Rosalva Yung MA - 04/16/2024 4:13 PM EST The following refill is being requested Medication: Primidone Dosage: 50mg Frequency:1 am, 1.5 afternoon, 1 evening Day supply requested: Pharmacy: [address] Next scheduled appt: Is pt out of medication? YES [id number] Miscellaneous Notes* Telephone Encounter - Rosalva Yung MA - 04/16/2024 4:13 PM EST The following refill is being requested Medication: Primidone Dosage: 50mg Frequency:1 am, 1.5 afternoon, 1 evening Day supply requested: Pharmacy: [address] Next scheduled appt: Is pt out of medication? YES Updated pharm in DEMOs. documented in this encounterSt[id number] Hospital Discharge instructions Patient Education 02/27/2024 11:45:02 [...] Follow these instructions at home: Medicines Take unrj-nos-udyjszq and prescription medicines only as told by [...] and water are not available, use hand mail service coordinator. ?Change your dressing as told by your [...] 04/16/2016 Document Revised: 10/26/2018 Document Reviewed: 10/26/2018 Elsevier Patient Education 2020 [employer]. 02/27/2024 11:44:29 Monitored Anesthesia Care, Care After [...] before eating solid foods. General instructions Take wzrh-xqh-nboiylt and prescription medicines only as told by [...] 07/11/2016 Document Revised: 06/19/2018 Document Reviewed: 07/11/2016 [employer] Patient Education 2020 [employer]. Follow Up Care 02/16/2024 15:30:20 With:JOHN MATUTE MD, Surgery Address: [address] [place] [address]- [phone] When: Unknown [facility] 11-25-2024 Note Discharge Instructions Thank you for allowing [facility] to assist you with your healthcare needs. The following is importantdischarge information regarding your hospital visit. Your Care Team PARISH GRAFF DO, Dr. Your Diagnosis Acute post-operative pain What to do next Scheduled Follow-Up Appointments Appointment Type When With Where Contact Information StatusIR Lymph Node Biopsy 02/29/2024 12:00 [facility] IR Confirmed GS OV Post Op 03/08/2024 01:20 PM JOHN BONILLA MD [facility] Confirmed PC OV 03/19/2024 01:00 PM PARISH FINLEY DO [facility] Confirmed Follow Up Appointments Follow Up with JOHN MATUTE MD, Surgery Where:[address] [place] [phone] The Following Activity and Diet Have Been Ordered for You Discharge Activity - Ordered -- Sexual [place] Restricted No bending, twisting, crawling or squatt, [...] When Why Instructions Last Dose New acetaminophen-hydrocodone (Poplar 325- 5 mg oral tablet) 1 tab(s) by mouth Every 4 hours as needed for Pain, scale 1-6 Acute post-operative pain Duration: 3 Days Pickup at [facility] 074 Unchanged acetaminophen (acetaminophen 500 mg [...] Every day Duration: 90 Days Pharmacy Information [facility] 074: [address] [place], [place] [id number] [phone] Please take this list to your next [...] Follow these instructions at home: Medicines Take tnrx-snb-xmamixs and prescription medicines only as told by [...] and water are not available, use hand mail service coordinator. ? Change your dressing as told by [...] 04/16/2016 Document Revised: 10/26/2018 Document Reviewed: 10/26/2018 [employer] Patient Education 2020 [employer]. Monitored Anesthesia Care, Care After These instructions [...] before eating solid foods. General instructions Take wgni-xrp-ihmmbkx and prescription medicines only as told by [...] 07/11/2016 Document Revised: 06/19/2018 Document Reviewed: 07/11/2016 [employer] Patient Education 2020 [employer]. Additional Information VACCINATE! IT SAVES LIVES! Members of the community who have not yet received the COVID-19 vaccine and would like to receive it can visit one of [facility] vaccine clinics. There are many vaccine clinic locations within the [facility]. For locations and available times, please visit https://gettheshot.coronavirus.[place].gov/. It is important to note that some COVID mobile vaccine clinics are held outdoors and may be canceled in rainy or stormy conditions. To learn more about pediatric vaccinations (ages 5-11), we invite you to visit the [facility] webpage. https://www.[facility].org/pages/6266-Pojme-Lhwlcaszaqj-Pieffptyoc-Pdprs-Qpd stions.htmlTo learn more about the COVID-19 vaccine, we invite you to visit the CDC website for a list of frequently asked questions.https://www.cdc.gov/coronavirus/2019-ncov/vaccines/faq.html [facility] Patient Portal Access Instructions: Stay connected with your healthcare team and access your personal medical information anytime with the [facility] Patient Portal. Please follow the directions below to create your [facility] account: 1.Access the email account you provided upon registration to the hospital/physician office.2.Look for an invitation email from [facility].3.Open the email and access the invitation link: AcceptInvitation to [facility].4.Fill in the required pineda to create your account. To access your account, visit [email or web address]. Click the blue button labeled Access Patient Portal and then log in with the username and password that you created in the steps above. You will be able to view your test results, lab results, a summary of your visits, upcoming appointments and more. There is also a convenient messaging option where you can send secure messages to your FitViavider. In addition, you will have the ability to download any documents or summaries to your computer and/or send the information securely to a physician. Remember that your healthcare information is confidential, so carefully consider who you will allowto register on the [facility] Patient Portal for access to your information. You can also access the [facility] Patient Portal on the [facility] [employer] fernando. Simply click on Patient Portal and then log into your account. If you would like to receive a full copy of your medical records, please contact the [facility] Medical Records Department by calling [phone], Tuesday through Tuesday between 8 a.m. and [...] Call your local pharmacy or go to http://bit.e-Zassi/3I2Qs4k to find one close to you.3.Make use of household items: Use cat litter or old coffee grounds to dispose medications if other options arenot available. Mix your drugs with these household products, seal them in an airtight container andthrow it into the garbage. Call [facility]: [phone] to be sure your drugs can be [...] aware that I should contact my doctor. 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/Accountant Auditor Signature: Date/Time: Relationship to Patient: Witness Name/Signature: Date/Time: [facility]11-25-2024 Anesthesiology Consult note Patient: RADHA BRENNAN Age: 68 years Sex: Male : 1955 Associated Diagnoses: None Author: GREGORIO BAKER DESIGN INTERN-AUTOMOTIVE SALES MANAGER Assessment Postanesthesia assessment Vitals: Vital signs from [...] by GREGORIO BAKER on 02/27/2024 11:35 AM [facility]11-25-2024 Anesthesiology Consult note Patient: RADHA BRENNAN [...] Problem list: Medical Anxiety / SNOMED CT 44999096 / Confirmed Afib / SNOMED CT 29531557 / Confirmed Anaphylactic reaction to bee sting / SNOMED CT 573725675 / Confirmed Blood clot / SNOMED CT 565821963 / Confirmed Cachexia / SNOMED CT 725957439 / Confirmed Carotid stenosis / SNOMED CT 678541357 / Confirmed Constipation / SNOMED CT 95421352 / Confirmed CAD (coronary artery disease) / SNOMED CT 63107140 / Confirmed Costochondritis / SNOMED CT 5159594415 / Confirmed Protein-calorie malnutrition, severe / SNOMED CT 029564022 / Confirmed Wears dentures / SNOMED CT 416217922 / Confirmed Folic acid deficiency / SNOMED CT 411409662 / Confirmed GERD (gastroesophageal reflux disease) / SNOMED CT 955740881 / Confirmed Ventral hernia / SNOMED CT 5035672623 / Confirmed History of stroke with residual deficit / SNOMED CT 7316447903 / Confirmed S/P CABG x 3 / SNOMED CT 4841611508 / Confirmed S/P coronary artery stent placement / SNOMED CT 1071673376 / Confirmed Hypercoagulable state due to atrial fibrillation / SNOMED CT 7700503932 / Confirmed HLD (hyperlipidemia) / SNOMED CT 85522136 / Confirmed Cognitive impairment / SNOMED CT 9215037113 / Confirmed Insomnia / SNOMED CT 306955946 / Confirmed Iron deficiency / SNOMED CT 80247915 / Confirmed Lipoma / SNOMED CT 006205099 / Confirmed Low back pain / SNOMED CT 891034454 / Confirmed Magnesium deficiency / SNOMED CT 510043888 / Confirmed Immunization refused / SNOMED CT 1268211855 / Confirmed Lung nodules / SNOMED CT 4641695478 / Confirmed PVCs (premature ventricular contractions) / SNOMED CT 467462044 / Confirmed Screening for cardiovascular condition / SNOMED CT 490030919 / Confirmed Screening for prostate cancer / SNOMED CT 529165287 / Confirmed Peripheral vascular disease / SNOMED CT 9840304202 / Confirmed Tinea versicolor / SNOMED CT 92944854 / Confirmed PTSD (post-traumatic stress disorder) / SNOMED CT 75576559 / Confirmed Prediabetes / SNOMED CT 7935519310 / Confirmed Major depressive disorder, recurrent / SNOMED CT 233770065 / Confirmed Screening due / SNOMED CT 538849650 / Confirmed Seizure disorder / SNOMED CT 050529929 / Confirmed Syncope / SNOMED CT 078909797 / Confirmed TBI (traumatic brain injury) / SNOMED CT 435064 / Confirmed Tremor / SNOMED CT 78427678 / Confirmed, Active Problems (42) Afib Anaphylactic [...] Mother () Procedure history: Open heart surgery (1086318) in the month of 10/2021 at 66 Years. Colonoscopy (651921921) in 2013 at 58 Years. Cardiac care (2367559363). Comments: 04/21/2023 11:39 EST - Jocelyn Bales BODY LINER stent placed Social History: Social & Psychosocial [...] Signs (last 24 hrs) Last Charted Temp Jjotycfs98.9 DegC (FEB 26 08:56) OFS622 mmHg (FEB 26 08:56) DBP68 mmHg (FEB 26 08:56) Measurements from flowsheet : Measurements 02/27/2024 8:56 EST Height 173 cm Admission Weight 173 kg Kincaid Body Weight 68.65 kg Pain assessment: Pain [...] Surgeon SN - CAt - Role Performed AUTOMOTIVE SALES MANAGER SN - CAt - Role Performed Certified Green Building Engineer 1 SN - CAt - Role Performed Scrub 1 SN - CAt - Role Performed Chief Science Officer 1 02/27/2024 9:24 EST SN - Preop [...] Height 173 cm Admission Weight 173 kg Kincaid Body Weight 68.65 kg Temperature Temporal Artery [...] Allergies Yes Anesthesia Extension Set Applied Yes Hydroelectric Production Manager On Yes Consent Form Signed Yes Patient [...] No Advanced Directives Yes Advance Directive Type [place] Durable Power of Cardiac Cath Lab Technologist for [facility] [place], [place] Declaration (Living Will) Advance Directive Location [...] No smoking after midnight, No jewelry, Responsible Green Party, Aware of surgery location, 1 bottle CHG wash with instructions given, Instructed to take orderedmedications, SSI prevention handout given SN - Preprocedure Comments Spoke with patient, Verbalizes/Nonverbally indicates understanding, Other: MORNING MEDICATIONS Barriers to Learning None evident Teaching Method Explanation, Printed materials Preferred Spoken Language Chilean Preferred Written Language Chilean Teaching Evaluation No further teaching needed Safety [...] Kelly DE LEON . Assessment and Plan [place] Island[place] Society of Anesthesiologists (ASA) physical status classification: Class III. Anesthetic Preoperative Plan Anesthetic technique: MAC. Informed consent: signed by patient. Digitally Signed by GREGORIO BAKERAUTOMOTIVE SALES MANAGER on 02/27/2024 10:42 AM Digitally Signed by GREGORIO BAKERAUTOMOTIVE SALES MANAGER on 02/27/2024 11:01 AM [facility]11-01-2024 Note ORIGINAL EXAMINATION: CT OF THE ABDOMEN AND PELVIS WITH FEASYBMN80/1/2024 9:13 am TECHNIQUE: CT of the abdomen [...] Sign Date: 02/03/2024 2:46:30 PM Ordering Provider: [facility]10-25-2024 Telephone encounter Note* Telephone Encounter - Nilesh Olivas MD - 01/27/2024 3:33 PM EDT Yes for tremors, pt stated he would discuss with his home health aide, if so will refer to [place] for this HOWEVER I dont think they can help his type of tremor [id number] Miscellaneous Notes* Telephone Encounter - Nilesh Olivas MD - 01/27/2024 3:33 PM EDT Yes for tremors, pt stated he would discuss with his home health aide, if so will refer to [place] for this HOWEVER I dont think they can help his type of tremor * Telephone Encounter - Nneka Amirah - 01/26/2024 2:58 PM EDT Patient's son asked who you wanted to refer patient to? For his tremors? No referral placed yet, nothing in notes. documented in this encounterSt. Lukes [facility] HospitalNigucnuubd27-04-4632 Telephone encounter Note* Telephone Encounter - Nneka Laddnabil - 01/26/2024 2:58 PM EDT Patient's son asked who you wanted to refer patient to? For his tremors? No referral placed yet, nothing in notes. [facility] [id number] History of Present illness Narrative* Nilesh Olivas [...] under the care of a neurologist in [place] but has since changed doctors SOCIAL HISTORY [...] mg by mouth in the morning. HYDROcodone-acetaminophen ([place]) 5-325 MG tablet Take 1 tablet by [...] to provide any benefit. A referral to [place] for focused beam ultrasound or gamma knife. [...] months for follow up. documented in this encounterSt. Lukes Des Peres HospitalAcycigcplv75-24-5954 Discharge summary Author Thai Nice [facility] May 23, 2023 8:20pm Note Date/Time May 23, 2023 7:21pm [facility] Medical Records Department [address] [place] [address] Emergency Department Summary 05/23/23 MR#: [id number] Acct: [id number] Name: RADHA BRENNAN Rep #:[id number] : 1955 67 From: Thai Nice DO PCP: Dr. Parish Graff, Status:REG ER Location: ED HPI History of [...] baseline currently. States he sees cardiology at [facility] but also has been seen by Dr. Morin here at [facility]. He states that Dr. Morin did his cardiac stents. [facility] Medical History Abnormal electrocardiogram Alcohol use Atherosclerotic heart disease of [place]am[place] coronary artery without angina pectoris Atrial septal [...] 26.4 L Lymph % (Auto) 54.3 H [place] % (Auto) 10.4 H Eos % (Auto) [...] Signed: Prosper Lazar MD at 18:41 EST Reading Location ID and State: [facility] / [place] Tel , Service support , Discharge Plan Triage Chief Complaint: Chest [...] your Primary Care Provider. Call [facility] ([phone]) or report to the closest Emergency Room. Call 911 if necessary. 05/23/232019 <Electronically signed by Thai Nice DO> Cosigner Signature (if applicable): CC: Dr. Parish Graff DO ~ Signed [facility] Work Phone: 1(414) 503-295512-13-2023 Note ORIGINAL NM MYOCARDIAL SPECT STRESS/REST CLINICAL [...] PM Sign Date: 03/16/2023 4:53:33 PM Ordering Provider:[facility]12-13-2023 Note * Exam Date Time Procedure Performing Provider Status 03/16/23 9:24 AM Echocardiogram, Adult (AOH) Auth (Verified) [facility] 12-07-2023 Note* Exam Date Time Procedure Performing Provider Status 03/10/23 10:22 AM VL Carotid US/Dopple r Complete AOH Auth (Verified) [facility] 09-22-2023 History and physical note Author Alex Mejia [facility] December 24, 2022 11:20am Note Date/Time December 21, 2022 10:32am [facility] Medical Records Department [address] [place], [place] [address] [address] History & Physical Exam 12/21/22 1028 MR#: [id number] Acct: [id number] Name: RADHA BRENNAN Rep #:[id number] : 1955 67 From: Alex Mejia DO PCP: Dr. Radha Quintero MD Status:REG [facility] Location: AC15-[facility] - General General Date of Service: 12/24/22 HPI Narrative [...] or asthma. He does have an approximate 18-enop-apcc smoking history. In addition to his personal smoking history, the patient did grow up in a smoking household. The patient has never previously completed pulmonary function studies. He does not utilize any inhalers or supplemental oxygen at his baseline. He is currently followed by Dr. Olivas of neurology due to his history of seizures. The patient was previously employed in the [employer], tearing down [employer]. The patient is currently on Plavix. [facility] Medical History Abnormal electrocardiogram Atherosclerotic heart disease of salamat[place] coronary artery without angina pectoris Atrial septal [...] DO> Cosigner Signature (if applicable): cc: Dr. Aelx Mejia DO; Dr. Radha Quintero MD ~* Signed [facility] Work Phone: 1(830) 493-185909-22-2023 Procedure [facility] 12-09-2022 Discharge summary Author Álvaro Hsu [facility] December 09, 2022 11:23pm Note Date/Time December 09, 2022 11:17pm [facility] Medical Records Department [address] [place] [address] Emergency Department Summary 12/09/22 MR#: [id number] Acct: [id number] Name: RADHA BRENNAN Rep #:[id number] : 1955 67 From: Álvaro Hsu MD [...] in the emergency room on November 10.) [facility] Medical History Abnormal electrocardiogram Atherosclerotic heart disease of salamat[place] coronary artery without angina pectoris Atrial septal [...] complex focal seizures. Most recent MRI was 2017. Most recent CAT scan was November 10. [...] (Auto) 45.6 L Lymph % (Auto) 40.6 [place] % (Auto) 7.8 Eos % (Auto) 5.3 [...] Clarity Clear Urine pH 6.0 Ur Specific [place] 1.015 Urine Protein Negative Urine Glucose (UA) [...] your Primary Care Provider. Call [facility] ([phone]) or report to the closest Emergency Room. Call 911 if necessary. 12/09/222322 <Electronically signed by Álvaro Hsu MD> Cosigner Signature (if applicable): CC: Dr. Radha Quintero MD ~ Signed [facility] Work Phone: 1(807) 461-880408-01-2023 Discharge summary Author Elvi Layton [facility] November 02, 2022 1:41pm Note Date/Time November 02, 2022 1:3 4pm [facility] Medical Records Department [address] [place] [address] Discharge Summary 11/02/22 1329 MR#: [id number] Acct: [id number] Name: RADHA BRENNAN Rep #:[id number] : 1955 67 From: Elvi Layton MD PCP: Dr. Radha Quintero MD Status:ADM KEYANNA Location: [place] [address] Providers Date of Admission: 11/01/22 Date of [...] disorder on Lamictal, essential tremor whopresented to [facility] 11/01/2022 with recurrence of tonic-clonic seizure after [...] % (Auto) 46.8 L, Lymph % (Auto)40.6, [place] % (Auto) 5.3, Eos % (Auto) 6.5 [...] GFR (MDRD) Non-Af 87, BUN/Creatinine Ratio 13.0, Bojgqac01, Calcium 8.2 L 11/02/22 08:30: Urine Color Yellow, Urine Clarity Clear, Urine pH 8.0, Ur Specific [place] 1.010, Urine Protein Negative, Urine Glucose (UA) [...] Guidelines 2017 MacMahon et al, Radiology 2017: https://pubs.rsna.org/doi/pdf/10.1148/radiol.7718917790 Nodule size: <6 mm SOLITARY low-risk: no [...] upon discharge.) Charges/Coding Visit Charges Inpatient E&M: 43377 Disch Hosp >30min 11/02/22 1339 <Electronically signed by Elvi Layton MD> Cosigner Signature (if applicable): CC: Dr. Radha Quintero MD; Dr. Elvi Layton MD; Dr. Kim Sandhu DO~ Signed ADDENDUM by Dr. Elvi Layton MD on 11/02/22 at 1341 Addendum 11/02/22 1341<Electronically signed by Elvi Layton MD> Cosigner Signature (if applicable): cc: Dr. Radha Quintero MD; Dr. Elvi Layton MD; Dr. Kim Sandhu DO ~* Signed [facility] Work Phone: 1(954) 752-364908-01-2023 Discharge summary Author Elvi Layton [facility] November 02, 2022 1:40pm Note Date/Time November 02, 2022 1:2 8pm [facility] Medical Records Department [address] [place] [address] Instructions for Home/Discharge Instructions 11/02/22 1327 MR#: [id number] Acct: [id number] Name: RADHA BRENNAN Rep #:[id number] : 1955 67 From: Elvi Layton MD [...] MD; Dr. Zaki Vigil MD ~ Signed [facility] Work Phone: 1(504) 911-851108-01-2023 Discharge summary Author Brennan Styles [facility] November 02, 2022 2:02am Note Date/Time November 01, 2022 9:48 pm [facility] Medical Records Department [address] [place] [address] Emergency Department Summary 11/01/22 MR#: [id number] Acct: [id number] Name: RADHA BRENNAN Rep #:[id number] : 1955 67 From: Brennan Styles MD PCP: Dr. Radha Quintero MD Status:ADM KEYANNA Location: [place] [address] HPI History of Present Illness Chief Complaint: Seizure Narrative Narrative: History provided by family, it is limited from the patient due to the level of consciousness. He has a history of epilepsy he is on lamotrigine and follows with Dr. Sandhu at neuroscience in [place] but has not seen him in a [...] No recent illness that they know of. [facility] Medical History Abnormal electrocardiogram Atherosclerotic heart disease of [place] coronary artery without angina pectoris Atrial septal [...] to voice, mumbles, does not follow commands. Robb Coma Scale: document GCS findings To Voice [...] (Auto) 46.8 L Lymph % (Auto) 40.6 [place] % (Auto) 5.3 Eos % (Auto) 6.5 [...] Guidelines 2017 MacMahon et al, Radiology 2017: https://pubs.rsna.org/doi/pdf/10.1148/radiol.2401870362 Nodule size: <6 mm SOLITARY low-risk: no [...] your Primary Care Provider. Call [facility] ([phone]) or report to the closest Emergency Room. Call 911 if necessary. 11/02/22 0202 <Electronically signed by Brennan Styles MD> Cosigner Signature (if applicable): CC: Dr. Radha Quintero MD ~ Signed [facility] Work Phone: 1([phone]) 122-409208-01-2023 History and physical note Author Zaki Vigil [facility] November 01, 2022 11:51pm Note Date/Time November 01, 2022 11:5 1pm [facility] Medical Records Department [address] [place] [address] History & Physical Exam 11/01/22 2346 MR#: [id number] Acct: [id number] Name: RADHA BRENNAN Rep #:[id number] : 1955 67 From: Zaki Vigil MD [...] an outpatient. He sees Dr. Sandhu in [place] for neurology care. [facility] Medical History Abnormal electrocardiogram Atherosclerotic heart disease of [place]am[place] coronary artery without angina pectoris Atrial septal [...] % (Auto) 46.8 L, Lymph % (Auto)40.6, [place] % (Auto) 5.3, Eos % (Auto) 6.5 [...] Guidelines 2017 MacMahon et al, Radiology 2017: https://pubs.rsna.org/doi/pdf/10.1148/radiol.2446372249 Nodule size: <6 mm SOLITARY low-risk: no [...] weight heparin Charges/Coding Visit Charges OBSV E&M: 43679 Observ/hosp same date L2 11/01/22 2351 <Electronically signed by Zaki Vigil MD> Cosigner Signature (if applicable): CC: Dr. Radha Quintero MD; Dr. Zaki Vigil MD~ Signed [facility] Work Phone: 1(687) 166-875507-19-2023 Discharge summary Author Zaki Estevez [facility] October 20, 2022 10:14pm Note Date/Time October 20, 2022 8:30 pm [facility] Medical Records Department [address] [place] [address] Emergency Department Summary 10/20/22 MR#: [id number] Acct: [id number] Name: RADHA BRENNAN Rep #:[id number] : 1955 67 From: Zaik Estevez MD PCP: Dr. Radha Quintero MD [...] ladder and fell and hit his head. [facility] Medical History Abnormal electrocardiogram Atherosclerotic heart disease of salam[place] coronary artery without angina pectoris Atrial septal [...] 35.2 L Lymph % (Auto) 45.3 H [place] % (Auto) 10.2 H Eos % (Auto) [...] Signed: Aubrey Adams MD at 21:14 EDT , EKG Initial EKG: Comments: Sinus rhythm with a rate of 57. Normal ND interval. Normal QTcinterval. Left axis deviation. Nonspecific [...] your Primary Care Provider. Call [facility] ([phone]) or report to the closest Emergency Room. Call 911 if necessary. 10/20/222213 <Electronically signed by Zaki Estevez MD> Cosigner Signature (if applicable): CC: Dr. Radha Quintero MD ~ Signed [facility] Work Phone: 1(155) 560-166106-14-2023 Hospital Discharge instructions Patient Education 09/15/2022 12:28:10 [...] Use night-lights. Place frequently used items in tlpt-dp-wxrju places. Lower the shelves around your home [...] of the way. Do not use floor taiwanese or wax that makes floors slippery. If [...] include working with a physical therapist or monkey trainer to improve your strength, balance, and endurance. Where to find more information Centers for Disease Control and Prevention, NITA: https://www.cdc.gov National [place] on Aging: https://cm2hqjf.jeannette.nih.gov Contact a health care provider if: You [...] 03/11/2003 Document Revised: 03/03/2018 Document Reviewed: 11/03/2017 [employer] Patient Education 2020 [employer]. 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 If you have worsening symptoms (such as numbness or weaknessin your arms or legs), you will need follow up. With:[facility] will be providing your home healthcare services at home. They should be contacting you soon. If you do not hear from them within 24 hours after discharge, please give them a call at the provided number. Address: When:1-2 days With:RADHA QUINTERO MD Address: [address] [place] [address]- When:1-2 days Comments:Please call the office to schedule a follow up appointment. [facility] 06-14-2023 Note Discharge Instructions Thank you for allowing [facility] to assist you with your healthcare needs. The following is importantdischarge information regarding your hospital visit. 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 If you have worsening symptoms (such as numbness or weakness in your arms or legs), you will need follow up. [place]: [facility] [place] [facility] [place] [address] [address] [phone] Follow Up with [facility] will be providing your home [...] schedule a follow up appointment. Where: [address] [place] [address]- The Following Activity and Diet Have Been [...] Use night-lights. Place frequently used items in ctqa-bx-crsay places. Lower the shelves around your home [...] of the way. Do not use floor taiwanese or wax that makes floors slippery. If [...] include working with a physical therapist or monkey trainer to improve your strength, balance, and endurance. Where to find more information Centers for Disease Control and PreventionNITA: https://www.cdc.gov National [place] on Aging: https://tk2czhp.jeannette.nih.gov Contact a health care provider if: You [...] 03/11/2003 Document Revised: 03/03/2018 Document Reviewed: 11/03/2017 [employer] Patient Education 2020 [employer] Additional Information VACCINATE! IT SAVES LIVES! Members of the community who have not yet received the COVID-19 vaccine and would like to receive it can visit one of [facility] vaccine clinics. There are many vaccine clinic locations within the [facility]. For locations and available times, please visit https://gettheshot.coronavirus.[place].gov/. It is important to note that some COVID mobile vaccine clinics are held outdoors and may be canceled in rainy or stormy conditions. To learn more about pediatric vaccinations (ages 5-11), we invite you to visit the [facility] webpage. https://www.akronOpenBuildingss.org/pages/8658-Laynt-Swohzegislh-Ubyjwaprxb-Hmrxg-Vsr stions.htmlTo learn more about the COVID-19 vaccine, we invite you to visit the CDC website for a list of frequently asked questions.https://www.cdc.gov/coronavirus/2019-ncov/vaccines/faq.html [facility] Patient Portal Access Instructions: Stay connected with your healthcare team and access your personal medical information anytime with the [facility] Patient Portal. Please follow the directions below to create your [facility] account: 1.Access the email account you provided upon registration to the hospital/physician office.2.Look for an invitation email from [facility].3.Open the email and access the invitation link: AcceptInvitation to [facility].4.Fill in the required pineda to create your account. To access your account, visit [email or web address]. Click the blue button labeled Access Patient Portal and then log in with the username and password that you created in the steps above. You will be able to view your test results, lab results, a summary of your visits, upcoming appointments and more. There is also a convenient messaging option where you can send secure messages to your p rovider. In addition, you will have the ability to download any documents or summaries to your computer and/or send the information securely to a physician. Remember that your healthcare information is confidential, so carefully consider who you will allowto register on the [facility] Patient Portal for access to your information. You can also access the [facility] Patient Portal on the [facility] fernando. Simply click on Patient Portal and then log into your account. If you would like to receive a full copy of your medical records, please contact the [facility] Medical Records Department by calling [phone], Tuesday through Tuesday between 8 a.m. and [...] Call your local pharmacy or go to [email or web address].[email or web address]/[email or web address] to find one close to you.3.Make use of household items: Use cat litter or old coffee grounds to dispose medications if other options arenot available. Mix your drugs with these household products, seal them in an airtight container andthrow it into the garbage. Call [facility]: [phone] to be sure your drugs can be [...] been reviewed and explained to me and I,MIKA RADHA Michelle understand my current condition and have read and understand these discharge instructions. I have received a written copy of the plan/instructions. If I have questions, I am aware that I should contact my doctor. Patient/Accountant Auditor Signature: Date/Time: Relationship to Patient: Witness Name/Signature: Date/Time: [id number] Nurse Progress note I was present for all medications administered by student nurse. Proper patient verification obtained and medications verified for accuracy prior to administration.. Digitally Signed by Patricia Danielle RN on 09/15/2022 12:11 PM [facility]Mgtiuusj51-15-5477 Discharge summary Date of Service 09/15/2022 Discharge [...] CABG, stroke, seizures. 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 If you have worsening symptoms (such as numbness or weakness in your arms or legs), you will need follow up. Where: [address] [facility] [place] [address]- [phone] Follow Up with [facility] will be providing your home [...] to schedule a follow up appointment. Where: [address] [place] [address]- Follow Up Appointments No qualifying data available. Follow Up Labs/Studies Discharge Labs No Follow-up Labs Discharge Studies No Follow-up Studies Discharge Diet No qualifying data available. Discharge Activity No qualifying data available. Condition on Discharge Stable Discharge Disposition Home with family Information Provided To DaughterMalik,and patient Time Spent >40 minutes Digitally Signed by MARYAM STAFFORD MD on 09/15/2022 10:26 AM [id number] Note Date of Service 09/14/2022 Chief Complaint [...] MARYAM STAFFORD MD on 09/14/2022 05:23 PM [facility] [id number] Neurological surgery Consult note Date of Service [...] history of alcohol abuse who presented to [facility] emergency department 09/13/2022 from [facility] with mental status change. Patient had fallen 20 feet from a ladder approximately 1 week ago and hit his head, which she states was on a tree branch. He reports he sustained some scalp abrasions/lacerations. He denies any loss of consciousness at time of the event, but was taken to outside hospital ([facility]) after the event. There was concern for [...] chronic stroke. Head CT was performed at [facility] which showed no acute findings, and no evidence of acute infarct. CT cervical spine showed no acute fracture or dislocation injuries. Degenerative changes noted, most prominent at C5-6 with central canal and foraminal stenosis. He was transferred over to [facility] for further neurological evaluation due to altered mental status. Patient has been evaluated by neurology team here at [facility] for encephalopathy. Has had no documented or [...] [facility] after these injuries on 2 separate occasions, and was kept for observation. Concern for likely concussion. Was evaluated by neurology and scheduled for outpatient follow-up. Was brought to [facility] 09/12/2022 due to family concerns of patient with increased confusion, persistent dizziness, complaints of headache, generalized weakness over the last several days. Head CT at [facility] showed no acute findings, and no evidence of acute infarct. CT cervical spine showed no acute fracture or dislocation injuries. Degenerative changes noted, most prominent at C5-6 with central canal and foraminal stenosis. Patient was transferred to [facility] for further neurological evaluation due [...] by HARI ASHLEY on 09/14/2022 04:04 PM [id number] Note ORIGINAL EXAMINATION: MRI OF THE CERVICAL [...] anterior thecal sac without central spinal stenosis. Cacw-eo-prvmbeud left and mild right foraminal stenosis. C4-C5: [...] Sign Date: 09/14/2022 2:18:22 PM Ordering Provider: [facility]06-13-2023 Note ORIGINAL EXAMINATION: MRI OF THE BRAIN [...] Sign Date: 09/14/2022 1:53:34 PM Ordering Provider: [facility]06-13-2023 Neurology Progress note Date of Service 09/14/22 [...] this is ongoing from when he left [facility] as they tried to put IV [...] following which he was initially admitted to [facility] and then transferred to [facility] for further evaluation on 09/13, no documented [...] by RADHA SUNG on 09/14/2022 02:36 PM [facility] WestAtsqwoie19-03-7447 Note. MICRO - Microbiology PROCEDURE: Urine Culture [...] Locations *1: This test was performed at: [facility], [address] [place] [address], [id number]- , [facility] ([place]09-14-2022 Note ORIGINAL EXAMINATION: MRI OF THE CERVICAL [...] anterior thecal sac without central spinal stenosis. Upzm-rv-dkmndsws left and mild right foraminal stenosis. C4-C5: [...] Sign Date: 09/14/2022 2:18:22 PM Ordering Provider: [facility]06-13-2023 Note Date of Service 09/14/2022 Date Read [...] BRIANNA LEDEZMA MD on 09/14/2022 09:29 AM [id number] Note ORIGINAL EXAMINATION: MRI OF THE BRAIN [...] Date: 09/14/2022 1:53:34 PM Ordering Provider: [facility] LEDEZMAR[facility] [id number] Note Subjective: Patient seen for encephalopathy Please [...] hrs)__Last Charted Minimum Maximum Temp36.7(SEP 13:59)36.7(SEP 13:59)37.1(SEP 13:06) Heart RateH 112(SEP 13:59)65(SEP 13 07:01)H 112(SEP 13:59) Resp Rate18(SEP 13:59)18(SEP 13 00:06)18(SEP 13:06) DTG668(SEP 13:59)92(SEP 13 02:38)124(SEP 13 00:06) DBP81(SEP 13:59)L 57(SEP 13 07:01)81(SEP 13:59) Physical examination: HEENT, is normocephalic, 2 [...] SILVER KELLEY MD on 09/13/2022 02:47 PM [facility] WestEjrkbyro10-83-5657 Evaluation + Plan noteExtracted from: Title:Clinical Document Author:JUHI PUENTES MD Date:09/13/22 [facility] Hospitalist History and Physical Date of Admission: 09/13/2022 Chief complaint: Change in mental status History of present illness: History is entirely taken from reviewing medical records. Cannot obtain any history from the patient due to his mental status. Patient was excepted as a transfer from [place] emergency department by my colleague. Patient has a past medical history of tobacco abuse, alcohol abuse per records no longer drinks alcohol, coronary artery disease status post stent and CABG, stroke, seizures. Patient was taken to [place] emergency department due to having a change [...] Patient was excepted as a transfer from [facility] emergency room by my colleague on 09/13/2022 [...] PM Scheduled Provider:SANTA ROJAS MD Location:NEUROS Appointment Type:[facility] 06-12-2023 Neurology Consult note Date of [...] following which he was initially admitted to [facility] and then transferred to [facility] for furtherevaluation, no documented or witnessed seizures. [...] deficits, sensory loss, speech disturbances, visual disturbances, JONES or dizziness. Review of Systems Complete ROS [...] following which he was initially admitted to [facility] and then transferred to [facility] for furtherevaluation, no documented or witnessed seizures. [...] interim. This note has been generated using [employer]ation software. It may contain incorrect words, punctuation's [...] BRIANNA LEDEZMA MD on 09/13/2022 02:05 PM [id number] History and physical note [facility] Hospitalist History and Physical Date of Admission: 09/13/2022 Chief complaint: Change in mental status History of present illness: History is entirely taken from reviewing medical records. Cannot obtainany history from the patient due to his mental status. Patient was excepted as a transfer from [place] emergency department by my colleague. Patient has a past medical history of tobacco abuse, alcohol abuse per records no longer drinks alcohol, coronary artery disease status post stent and CABG, stroke, seizures. Patient was taken to [place] emergency department due to having a change [...] Patient was excepted as a transfer from [facility] emergency room by nataliia on 09/13/2022 for [...] JUHI PUENTES MD on 09/13/2022 12:52 AM [facility]Ilifqapj23-18-2382 NoteHNO ID: [id number] Author: Linda Winkler APRN.FAST FOOD CREW MEMBER Service: ? Author Type: Nurse Practitioner Type: [...] graft ascending aorta end to side diagonal 2,?ELEIL ascending aorta end to side diagonal 1). [...] for discharge one week after surgery with [facility] ? At his 1 week post hospital DC follow up visit (walked in to this appointment, accompanied by his lady friend, from the parking garage all the way to the office. When he arrived to the office waiting room, he shares that he started experiencing sharp left sided chest pain /10. He was brought back to the exam room for evaluation, and reported after 10 minutes or so of rest that it had subsided to a dull left pectoral ache 2/10. Denies SOB. Endorses chronic cough. Continues to smoke 1 PPD. Admits he has been walking around the [employer], brief shorter walks. Attempted 1/2 lap around the [employer] and experienced similar symptoms that subsided with [...] in general. Walking about half trip around [employer]- 150 ft, then rests and resumes walk. Tolerating this without any chest pain, palpitations, shortness of breath. Continues to smoke 1/2 PPD. Stopped flexeril after a couple doses, thinks it may be contributing to nightmares. Interval events: went to [facility] ER two weeks ago for left forearm and upper arm pain, tells me he was diagnosed with blood clots to left arm, but was advised no new treatments given that he is already on ASA and Plavix. No record available for review at this time. Continues to ambulate around [facility] without CP/palp/sob. Continues to smoke Radha Brennan [...] by mouth twice mack (more content not included)...[facility]08-05-2022 Miscellaneous Notes* Allied Health - Nelia Pierre RT(R) - 11/06/2021 3:00 PM EDT Radiology [...] 06, 2021 1:59 PM documented in this encounterAcmc [facility]08-05-2022 Instructions* Patient Instructions* Linda Winkler APRN.FAST FOOD CREW MEMBER - 11/06/2021 2:41 PM EDT You have done a great job recovering from you surgery, moving forward, here are the recommendations: Medications: please continue taking Aspirin, plavix, beta millie (metoprolol) and statin for coronary artery disease. Please avoid taking NSAIDs (Aleve, Ibuprofen, Motrin, Advil, Mobic etc) Driving: Ok to drive now! Vest: ok to stop using Cardiac Rehab: [phone] ([facility] cardiac rehab, floor 1) You will have a EKG stress test before and after the cardiac rehab, [facility] Restrictions: slowly increase weight bearing in a gradual fashion (5-10 lbs increment each month) over the next 2-3 months to allow further healing, then gradually resume your normal activities depending on how you feel. Follow-ups: It is crucial to establish future appointments with your main providers, they are you membership counselor , primary care doctor and/or your maritime guard for medications refills/questions and future health management. Please make cardiology appointment in 4 weeks. CALL SOPHIA MADISON [phone] with [facility] Please make primary care appointment in 4-6 weeks Thanks for coming in to see me today. Please call us if you have any concerns/questions: [phone] You can follow up with cardiac surgery team on as needed basis. Please don't hesitate to contact us if you have any concerns/questions: [phone] Thanks for coming in to see me today. Linda Winkler APRN.ODALIS documented in this encounterAcmc Healthcare [facility]08-05-2022 History of Present illness Narrative* Linda Winkler APRN.ODALIS - 11/06/2021 2:37 PM EDT HPI: Radha [...] stable for discharge oneweek after surgery with [facility] At his 1 week [...] Admits he has been walking around the [facility], brief shorter walks. Attempted 1/2 lap around the [facility] and experienced similar symptoms that subsided [...] in general. Walking about half trip around [facility]- 150 ft, then rests and resumes walk. Tolerating this without any chest pain, palpitations, shortness of breath. Continues to smoke 1/2 PPD. Stopped flexeril after a couple doses, thinks it may be contributing to nightmares. Interval events: went to [facility] ER two weeks ago for left forearm and upper arm pain, tells me he was diagnosed with blood clots to left arm, but was advised no new treatments given that he is already on ASA and Plavix. No record available for review at this time. Continues to ambulate around [facility] without CP/palp/sob. Continues to smoke Radha Michelle [...] for Chest Pain. May of three doses. amiodarone (PACERONE) 200 mg [...] PAST MEDICAL HISTORY Diagnosis Date Atherosclerosis of [place] coronary artery of [place] heart with angina pectoris (HCC) Atrial septal aneurysm Cerebrovascular accident (CVA) due to embolism of cerebral artery (HCC) 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 (HCC) LV dysfunction [...] rehabilitation: ordered placed previously, proceed as scheduled. -Netbackup Administrator follow up appointment: again provided pt with [...] ice/heat/lidocaine patches 2. Coronary artery disease involving [place] coronary artery of [place] heart without angina pectoris- ICD9: 414.01, ICD10: [...] excessive warmth. bilat radial 2+ Linda Winkler APRN.FAST FOOD CREW MEMBER documented in this encounterAcmc Healthcare [facility] Glen[facility]igh07-26-2022 Miscellaneous Notes* Telephone Encounter - Sudheer Willis RN - 10/27/2021 7:38 AM EDT Linda Winkler; Patient has been discharged from skilled home health services as of 10/22/21. Nurse/teaching goals met. Thank you for allowing [facility] to serve your patient. Sudheer Willis RN documented in this encounterAcmc Healthcare [facility]07-21-2022 Miscellaneous Notes* [facility] - Bjorn Calvillo RN - 10/22/2021 10:01 AM EDT SITUATION: Half-Way agency discharge visit completed today. patient reports [...] for additional medical questions/concerns. documented in this encounterAcmc Healthcare [facility]07-21-2022 Miscellaneous Notes* Telephone Encounter - Warren Pete Luciano - 10/22/2021 9:29 AM EDT [facility] Cardiac Rehab phone [phone] fax [phone]. Orders, 10/16/21 office notes, discharge summary, operative report faxed on 10/22/21 documented in this encounterAcmc Healthcare [facility]07-15-2022 NoteHNO ID: [id number] Author: Linda Winkler APRN.ODALIS Service: ? Author [...] for discharge one week after surgery with [facility] At his 1 week [...] Admits he has been walking around the [employer], brief shorter walks. Attempted 1/2 lap around the [employer] and experienced similar symptoms that subsided with [...] in general. Walking about half trip around [employer]- 150 ft, then rests and resumes walk. [...] for 14 days. - (more content not included)...[facility]07-15-2022 Instructions* Patient Instructions* Linda Winkler APRN.FAST FOOD CREW MEMBER - 10/16/2021 1:56 PM EDT Weight: Please [...] appointment in 4-6 weeks. CALL SOPHIA MADISON [phone] with [facility] Please make primary care appointment in 4-6 weeks Thanks for coming in to see me today. Please call us if you have any concerns/questions: [phone] Linda Winkler APRN.CNP documented in this encounterAcmc Healthcare [facility]igh07-15-2022 History of Present illness Narrative* Linda Winkler [...] stable for discharge oneweek after surgery with [facility] At his 1 week [...] Admits he has been walking around the [facility], brief shorter walks. Attempted 1/2 lap around the [facility] and experienced similar symptoms that subsided [...] in general. Walking about half trip around [facility]- 150 ft, then rests and resumes [...] PAST MEDICAL HISTORY Diagnosis Date Atherosclerosis of [place] coronary artery of [place] heart with angina pectoris (HCC) Atrial septal aneurysm Cerebrovascular accident (CVA) due to embolism of cerebral artery (HCC) 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 (HCC) LV dysfunction [...] previous provider 2. Coronary artery disease involving [place] coronary artery of [place] heart without angina pectoris- ICD9: 414.01, ICD10: [...] 16, 2021, 1:26 PM documented in this encounterAcmc Healthcare System [facility]07-14-2022 Miscellaneous Notes* Telephone Encounter - Linda Winkler [...] this home health pt. documented in this encounterAcmc Healthcare System Glen[facility]igh07-14-2022 Miscellaneous Notes* SN Routine - Bjorn Calvillo RN - 10/15/2021 11:29 AM EDT SITUATION: Half-Way routine visit completed today. friend also present [...] isntruction, plan to dc. documented in this encounterAcmc Healthcare System [facility]igh07-08-2022 Miscellaneous Notes* SN Routine - Bjorn Calvillo RN - 10/09/2021 11:42 AM EDT SITUATION: Half-Way routine visit completed today. friend also present [...] sterstrips were removed from CT sites by WINDOW/DISTRIBUTION CLERK yesterday and they remain scabbed and dry. [...] CABG assessment and instruction. documented in this encounterAcmc Healthcare [facility]07-07-2022 NoteHNO ID: [id number] Author: Linda Winkler APRN.ODALIS Service: ? Author [...] PROBLEMS/DIAGNOSIS: Principal Problem: Coronary artery disease involving [place] coronary artery of [place] heart without angina pectoris Active Problems: S/P [...] Admits he has been walking around the [employer], brief shorter walks. Attempted 1/2 lap around the [employer] and experienced similar symptoms that subsided with [...] available. His friend reports BPs obtained by [facility] have been around 115/x, [...] mg (241.3 mg magnesiu (more content not included)...[facility]07-07-2022 Instructions* Patient Instructions* Linda Winkler APRN.ODALIS - 10/08/2021 11:55 AM EDT Weight: Please [...] call us if you have any concerns/questions: [phone] Linda Winkler APRN.ODALIS documented in this encounterAcmc Healthcare System [facility]07-07-2022 History of Present illness Narrative* Linda Winkler [...] PROBLEMS/DIAGNOSIS: Principal Problem: Coronary artery disease involving [place] coronary artery of [place] heart without angina pectoris Active Problems: S/P [...] Admits he has been walking around the [employer], brief shorter walks. Attempted 1/2 lap around the [employer] and experienced similar symptoms that subsided with [...] available. His friend reports BPs obtained by [facility] have been around 115/x, [...] for Chest Pain. August of three doses. No current facility-administered medications for this visit. Tuberculin, Purified Protein Derivative and Venom-Honey Bee PAST MEDICAL HISTORY Diagnosis Date Atherosclerosis of [place] coronary artery of [place] heart with angina pectoris (HCC) Atrial septal aneurysm Cerebrovascular accident (CVA) due to embolism of cerebral artery (HCC) 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 (HCC) LV dysfunction [...] MG TABLET 2. Coronary artery disease involving salam[place]of coronary artery of salam[place] heart without angina pectoris- ICD9: 414.01, ICD10: [...] 08, 2021, 11:31 AM documented in this encounterAcm[facility]07-05-2022 Miscellaneous Notes* Telephone Encounter - Linda Winkler [...] Please advise, thank you! documented in this encounterAcmc Healthcare [facility]07-05-2022 Miscellaneous Notes* SN Routine - Bjorn Calvillo RN - 10/06/2021 3:26 PM EDT SITUATION: Half-Way routine visit completed today. friend also present [...] any changes from pt appt with Kimmy Winkler on 10/08. documented in this encounterAcmc Healthcare [facility]07-01-2022 Miscellaneous Notes* SN Routine - Bjorn Calvillo RN - 10/02/2021 4:30 PM EDT SITUATION: Half-Way routine visit completed today. friend also present [...] CABG assessment and instruction. documented in this encounterAcmc Healthcare [facility]06-29-2022 Miscellaneous Notes* Telephone Encounter - Bjorn Calvillo [...] you for your review. documented in this encounterAcmc Healthcare [facility]06-29-2022 Miscellaneous Notes* SN SOC - Bjorn Calvillo RN - 09/30/2021 12:29 PM EDT SITUATION: Half-Way SOC visit completed today. friend also present [...] meds, meal prep, wound monitoring--Kaykay and her grandronnieter are currently providing this. Pt has a [...] wound for any drainage. documented in this encounterAcmc Healthcare [facility]06-27-2022 Miscellaneous Notes* Telephone Encounter - Krunal Flores LPN - 09/28/2021 2:56 PM EDT Voice message left at [phone] requesting a call back to confirm SOC Krunal Flores LPN Central Admissions Intake Nurse documented in this encounterAcmc Healthcare [facility]06-27-2022 NoteHNO ID: [id number] Author: Cathi Messer RN Service: Care Management [...] needs and plan for meeting these needs: [facility] HANDOFF COMMUNICATION: TRANSPORTATION ARRANGEMENTS: Transportation Arrangements: [employer] and Phone #:: [facility] ( [facility] ) [phone] / [phone] Date of Trip: 09/28/21 Time of Trip: 1700 Type of Service: BLS Non-emergency Is Patient Medicaid Pending?: No Was transportation financial coverage discussed with family?: Patient Industrial Technologist Location: [facility] Destination: Home Financial Care Management Responsibility: None ADDITIONAL CONTACT RESOURCES: W/C transport at 5pm. Home with [facility] for [facility]. SIGNATURE: Cathi Messer RN PATIENT NAME: Radha Brennan DATE: September 28, 2021 TIME: 12:52 PM PAGER/CONTACT #: [phone]-[facility] 09-28-2021 NoteHNO ID: [id number] Author: Cathi Messer RN Service: Care Management Author Type: Registered Nurse Type: Care Mgt Progress Note Filed: 09/28/2021 11:03 AM Note Text: CARE MANAGEMENT PROGRESS NOTE SERVICE DATE: 09/28/2021 SERVICE TIME: 11:02 AM LOS: 7 days IMM Follow Up Copy Given: Yes Copy given to:: Patient Method: In Person (Verbal) Chart reviewed. Plan for pt to return home with [facility]- [facility]CHIATRIC. W/C on standby for transport home. CM to follow. SIGNATURE: Cathi Messer RN PATIENT NAME: Radha Brennan DATE: September 28, 2021 TIME: 11:02 AM PAGER/CONTACT #: [phone]-Fairview [facility] Hospital 09-27-2021 NoteHNO ID: [id number] Author: Tami Luna PA-C Service: Cardiovascular Surgery Author Type: Physician Medical Typist Type: Progress Notes Filed: 09/27/2021 1:30 PM [...] Encourage IS/ deep b (more content not included)...[facility]06-25-2022 NoteHNO ID: [id number] Author: Tami Luna PA-C Service: Cardiovascular Surgery Author Type: Physician Medical Typist Type: Progress Notes Filed: 09/27/2021 1:23 PM [...] Saturating well on R (more content not included)...[facility]06-24-2022 NoteHNO ID: [id number] Author: Tami Luna PA-C Service: Cardiovascular Surgery Author Type: Physician Medical Typist Type: Progress Notes Filed: 09/25/2021 2:26 PM [...] breathing/ cough ? ? (more content not included)...[facility]06-[facility]22 NoteHNO ID: [id number] Author: SERGIO Rodriguez Service: Care Management Author Type: School Psychology Specialist Type: Care Mgt Progress Note Filed: 09/24/2021 2:30 PM Note Text: CARE MANAGEMENT PROGRESS NOTE SERVICE DATE: 09/24/2021 SERVICE TIME: 2:27 PM LOS: 3 days Needs Prior to Discharge: To Be Determined;Home Care Order [place] of Choice Given: Yes Level of Care Discussed: Home Care Financial Disclosure Provided: Yes Financial Disclosure Comments: Disclosed [facility] affiliation Provider List: Other: See Comment (Declined list, no preference) SW met with pt at bedside to discuss home care. Pt is agreeable to [facility] at discharge. Pt is agreeable to PSYCHIATRIC, they are able to accept. Pt will need [facility] orders and transport home. SIGNATURE: SERGIO Rodriguez PATIENT NAME: Radha Brennan DATE: September 24, 2021 TIME: 2:27 PM PAGER/CONTACT #: [phone] 09-24-2021 NoteHNO ID: [id number] Author: Tami Luna PA-C Service: Cardiovascular Surgery Author Type: Physician Medical Typist Type: Progress Notes Filed: 09/24/2021 11:21 AM [...] HCO3 24 25.1 23 24.1 25.8 CO2CT -- 22 -- -- O2HB 95 -- 95 -- -- COHB 1.0 -- 2.0 -- -- MHGB <1.0 -- 1.1 -- -- PHTC 7.37 -- 7.23* -- -- PCO2T 43 -- 56* -- -- PO2T 88 -- 122* -- -- (more content not included)...[facility] 09-24-2021 NoteHNO ID: [id number] Author: Rachelle Ramos MD Service: Critical Care Author Type: Physician Type: Progress Notes Filed: 09/24/2021 12:19 PM Note Text: CRITICAL CARE PROGRESS NOTE SERVICE DATE: September 24, 2021 SERVICE TIME: 12:18 PM Admission Date: 09/21/2021 AGE: 66 yea LOS: 3 days REASON FOR ICU ADMISSION: S/P CABG 09/21/2021 Subjective OVERNIGHT EVENTS: Objective PAST MEDICAL HISTORY Diagnosis Date - Atherosclerosis of salamatof coronary artery of salamatof heart with angina pectoris (HCC) - Atrial septal aneurysm - Cerebrovascular accident (CVA) due to embolism of cerebral artery (HCC) - 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 (HCC) - LV [...] 3790 ml Net -3187 ml PHYSICAL EXAM: MIXER CRANE OPERATOR: Alert and oriented Eyes: PER Neck: Unremarkable; [...] LORazepam 4 mg (A (more content not included)...[facility] 09-23-2021 NoteHNO ID: [id number] Author: SERGIO Rodriguez Service: Care Management Author Type: School Psychology Specialist Type: Care Mgt Progress Note Filed: 09/23/2021 [...] 23, 2021 TIME: 12:05 PM PAGER/CONTACT #: [phone] General Hospital 09-23-2021 NoteHNO ID: [id number] Author: John Reed PA-C Service: Cardiovascular Surgery Author Type: Physician Medical Typist Type: Progress Notes Filed: 09/23/2021 12:11 PM [...] to time, place and person, alert and manager linux strength 5/5 Extremities: mild 1+ pitting edema [...] O2HB 95 -- 95 (more content not included)...[facility] 09-23-2021 NoteHNO ID: [id number] Author: Thai Peter MD Service: Critical Care [...] Aneurysm Mixed Hyperlipidemia Coronary Artery Disease Involving [place] Coronary Artery of [place] Heart With Angina Pectoris (Hcc) 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 Severe Protein-Calorie Malnutrition (Hcc) PAST MEDICAL HISTORY Diagnosis Date - Atherosclerosis of salamatof coronary artery of salam[place]of heart with angina pectoris (HCC) - Atrial septal aneurysm - Cerebrovascular accident (CVA) due to embolism of cerebral artery (HCC) - 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 (HCC) - LV [...] 09/21/21 0810 Non-tunneled Ri (more content not included)...[facility]06-21-2022 NoteHNO ID: [id number] Author: Anisha Blanco (PhatNoise) Service: Pharmacy Author Type: Flush Tester Type: Plan of Care Filed: 09/22/2021 4:21 PM Note Text: PHARMACY MEDICATION REVIEW Patient Name: Radha Brennan : 1955 The following medications were updated within the SUPERVISOR CARDING medication list: Medications ADDED to SUPERVIS[employer] medication list ? Medications CHANGED on [employer]PER[employer] medication list cyclobenzaprine (FLEXERIL) 5 mg tablet Take 5 mg by mouth three times daily as needed for muscle spasm. lamoTRIgine (LAMICTAL) 25 mg tablet Take 50 mg by mouth twice daily. primidone (MYSOLINE) 50 mg tablet Take 75 mg by mouth twice daily. ? Medications REMOVED from [employer] medication list acetaminophen (TYLENOL ORAL) Course of therapy completed metoprolol tartrate, short acting, (LOPRESSOR) 25 mg tablet Auto ? Additional comments: Verified medication information with [facility] pharmacy and chart review. Did not confirm [...] medication history: Yes Medication history completed by: Flush Tester: Anisha Blanco (PhatNoise) Source of history: Pharmacy records: [facility] [phone] and [facility] Medication nonadherence identified: Unable to assess Reconciliation completed: No, pharmacist not yet reviewed Patient interested in Bedside Delivery Services or using [facility] OP Pharmacy at discharge? Unable to assess Preferred outpatient pharmacy: [facility] [place] [address] [address] [facility] [phone] [address] - [place] [address] [address] [facility] [phone] [facility] Allergies: Tuberculin, Purifie* Swelling Venom-Honey [...] twice daily. Facility-Administered Medications: None Anisha Blanco (Suction Operator)[email or web address] 09/22/2021[facility]06-21-2022 NoteHNO ID: [id number] Author: John Reed PA-C Service: Cardiovascular Surgery Author Type: Physician Medical Typist Type: Progress Notes Filed: 09/22/2021 10:47 AM [...] to time, place and person, alert and manager linux strength 5/5 Extremities: normal exam of the [...] and controlled - Med (more content not included)...[facility]06-21-2022 Note HNO ID: [id number] Author: Thai Peter MD Service: Critical Care [...] Aneurysm Mixed Hyperlipidemia Coronary Artery Disease Involving [place] Coronary Artery of [place] Heart With Angina Pectoris (Hcc) 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 PAST MEDICAL HISTORY Diagnosis Date - Atherosclerosis of salamatof coronary artery of salamatof heart with angina pectoris (HCC) - Atrial septal aneurysm - Cerebrovascular accident (CVA) due to embolism of cerebral artery (HCC) - 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 (HCC) - LV [...] 0.2-1 mcg/kg/hr INTRAVENOUS CONTIN (more content not included)...[facility] 09-21-2021 NoteHNO ID: [id number] Author: Hi Gonzalez APRN.AUTOMOTIVE SALES MANAGER Service: Anesthesiology Author Type: Nurse Vp Of Marketing Type: Anesthesia Procedure Notes Filed: 09/21/2021 9:56 PM Note Text: ANESTHESIOLOGY PROCEDURE NOTE Airway General Information Procedure Start Time/Medication Administration: 09/21/2021 9:47 PM Procedure End Time: 09/21/2021 9:48 AM Patient location during procedure: OR Timeout Performed Pre-procedure: timeout performed Consent Obtained: Yes Patient identity confirmed: arm band and patient Staffing Anesthesiologist: Prosper Escalante MD AUTOMOTIVE SALES MANAGER: Hi Gonzalez APRN.AUTOMOTIVE SALES MANAGER Performed by: AUTOMOTIVE SALES MANAGER Indications and Patient Condition Preoxygenated: yes Patient [...] no Airway not difficult SIGNATURE: Hi Gonzalez APRN.AUTOMOTIVE SALES MANAGER PATIENT NAME: Radha Brennan DATE: September 21, 2021 TIME: 9:54 PM CSN: [id number]-Fairview General Hospital06-20-2022 Miscellaneous Notes* Telephone Encounter - Jess Cifuentes - 09/21/2021 12:11 PM EDT Left detailed message to inform. Jess Cifuentes * Telephone Encounter - Jess Cifuentes - 09/21/2021 12:10 PM EDT ----- Message from Matt Villegas PA-C sent at 09/18/2021 9:45 AM EDT ----- No infection in the urine SAM Oropeza, SANJUANA FREEMAN documented in this encounterAcmc [facility]06-20-2022 NoteHNO ID: [id number] Author: REY Atkinson Service: ? Author Type: [...] September 21, 2021 TIME: 8:42 AM CSN: [id number]-Fairview General Hospital06-20-2022 NoteHNO ID: [id number] Author: REY Atkinson Service: ? Author Type: [...] September 21, 2021 TIME: 8:35 AM CSN: [id number]-Fairview General Hospital06-20-2022 NoteHNO ID: [id number] Author: REY Atkinson Service: ? Author Type: Student Type: Anesthesia Procedure Notes Filed: 09/21/2021 8:26 AM Note Text: ANESTHESIOLOGY PROCEDURE NOTE A-Line General Information Patient location during procedure: OR Timeout Performed Pre-procedure: timeout performed Indication: continuous blood pressure monitoring and blood sampling needed Staffing Anesthesiologist: Lukas Marie MD AUTOMOTIVE SALES MANAGER: Aubrey Cook APRN.AUTOMOTIVE SALES MANAGER Performed by: LUIS Preparation Sterility Preparation: hand [...] September 21, 2021 TIME: 8:25 AM CSN: [id number]-Fairview General Hospital06-17-2022 NoteHNO ID: [id number] Author: Linda Winkler APRN.CNP Service: Cardiovascular Medicine [...] with VKA drugs, such as warfarin, the [place] [employer] 2012 Guideline recommends [...] et al. Chest 2012, 141:7S-47S Jose Angel LEWIS et al. [facility] 2017, 70: 252-289 Anemia Evaluation: Anemic: No Accept Blood: Yes Blood Conservation Committee: NA IF anemia, IRON/ANEMIA studies done: NA Studies included: Ferritin, FE+TIBC, Fe Sat, FOBT Anemia Treatment: NA UA pH, Urine Date Value Ref Range Status 09/11/2021 6.0 5.0 - 8.0 Final Specific [place], Ur Date Value Ref Range Status 09/11/2021 [...] OAC/PLAVIX: Yes, stop pl (more content not included)...[facility]06-14-2022 NoteHNO ID: [id number] Author: Matt Villegas PA-C Service: ? Author Type: Physician Medical Typist Type: Progress Notes Filed: 09/15/2021 2:15 PM [...] MEDICAL HISTORY Diagnosis Date - Atherosclerosis of salamatof coronary artery of salamatof heart with angina pectoris (HCC) - Atrial septal aneurysm - Cerebrovascular accident (CVA) due to embolism of cerebral artery (HCC) - 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 (HCC) - LV [...] 0.2 Normal E.U./dL NITRITE (more content not included)...[facility]06-14-2022 Note HNO ID: [id number] Author: Krunal Reynolds LPN Service: ? Author [...] tolerated the procedure well. Plan: Appointment with Matt.[facility]06-14-2022 History of Present illness Narrative* Mtat Villegas PA-C - 09/15/2021 1:33 PM EDT [...] PAST MEDICAL HISTORY Diagnosis Date Atherosclerosis of salamatof coronary artery of salamatof heart with angina pectoris (HCC) Atrial septal aneurysm Cerebrovascular accident (CVA) due to embolism of cerebral artery (HCC) 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 (HCC) LV dysfunction [...] Plan: Appointment with Matt. documented in this encounterAcmc [facility]06-13-2022 Miscellaneous Notes* Telephone Encounter - Linda Winkler [...] placed. Linda Winkler APRN.CNP documented in this encounterAcmc [facility]06-10-2022 NoteHNO ID: [id number] Author: Linda Winkler APRN.CNP Service: ? Author [...] MEDICAL HISTORY Diagnosis Date - Atherosclerosis of salam[place]of coronary artery of salam[place] heart with angina pectoris (HCC) - Atrial septal aneurysm - Cerebrovascular accident (CVA) due to embolism of cerebral artery (HCC) - 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 (HCC) - LV [...] mg by mouth on (more content not included)...[facility]06-10-2022 Instructions* Patient Instructions* Linda Winkler APRN.[facility] - 09/11/2021 2:24 PM EDT You are scheduled for surgery (inpatient) located on the 2nd Floor on: September 21 (your surgery dateis subject to change should there be emergencies). Come in the Front Doors / Main Entrance of the hospital. No need to stop at front entrance registration. Please check in to the [facility] (2nd Floor) at: 6 AM 1. [...] at home. Remove all make-up and nail taiwanese before admission. We need to check your [...] receive call regarding the test, please call [phone]. Nutritional support/Ensure Drinks Instruction (Please continue eating [...] THAN 5:30 AM, THANKS. Please call office: [phone] if you have additional questions, Thanks. Linda Winkler APRN.CNP 07/24/21 documented in this encounterAcmc Healthcare [facility]06-10-2022 History of Present illness Narrative* Linda Winkler [...] PAST MEDICAL HISTORY Diagnosis Date Atherosclerosis of salam[place] coronary artery of sal[place] heart with angina pectoris (HCC) Atrial septal aneurysm Cerebrovascular accident (CVA) due to embolism of cerebral artery (HCC) 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 (HCC) LV dysfunction [...] time, place & person , Alert, Oriented, Research Administrator strength 5/5bilat , Steady gait and No [...] disease 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 CABG 09/21/21 arrival time at 6am procedure time 7:30am at [facility] COVID test 09/18/21 2pm in [place]. documented in this encounterAcmc Healthcare [facility]06-01-2022 Evaluation note* Diagnosis Onset Date Resolution Status Coronary artery disease with angina pectoris acute History of coronary artery bypass surgery September, acute Status post coronary artery bypass graft acute 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 CVA (cerebral vascular accident) chronic Essential tremor chronic Hyperlipidemia chronic Nicotine dependence chronic Stented coronary artery October 06, 2017 [facility] Scalp pain acute Scalp wound acute Nicotine dependence chronic History of coronary artery bypass surgery September, acute Postoperative atrial fibrillation acute Syncope and collapse acute 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 Epilepsy chronic Hyperlipidemia chronic Scalp pain acute Scalp wound acute Nicotine dependence chronic Cervical spinal stenosis chr onic Epilepsy chronic Essential tremor chronic Cerebrovascular disease reso lved Dizziness acute Scalp wound acute Vertigo resolved [facility] Work Phone: 1(765) 780-267106-01-2022 Evaluation note* Diagnosis Onset Date Resolution Status Coronary artery disease with angina pectoris acute History of coronary artery bypass surgery September, acute Status post coronary artery bypass graft acute 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 CVA (cerebral vascular accident) chronic Essential tremor chronic Hyperlipidemia chronic Nicotine dependence chronic Stented coronary artery October 06, 2017 ch ronic Scalp pain acute Scalp wound acute Nicotine dependence chronic History of coronary artery bypass surgery September, acute Postoperative atrial fibrillation acute Syncope and collapse acute 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 Epilepsy chronic Hyperlipidemia chronic Scalp pain acute Scalp wound acute Nicotine dependence chronic Cervical spinal stenosis chr onic Epilepsy chronic Essential tremor chronic Cerebrovascular disease reso lved Dizziness acute Scalp wound acute Vertigo resolved Acute encephalopathy acute History of coronary artery bypass surgery September, acute Seizures acute Epilepsy chronic [facility] Work Phone: 1(553) 363-211106-01-2022 Evaluation note* Diagnosis Onset Date Resolution Status Coronary artery disease with angina pectoris acute History of coronary artery bypass surgery September, acute Status post coronary artery bypass graft acute 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 CVA (cerebral vascular accident) chronic Essential tremor chronic Hyperlipidemia chronic Nicotine dependence chronic Stented coronary artery October 06, 2017 ch ronic Scalp pain acute Scalp wound acute Nicotine dependence chronic History of coronary artery bypass surgery September, acute Postoperative atrial fibrillation acute Syncope and collapse acute 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 Epilepsy [...] 06, [facility] Work Phone: 1(328) 491-212206-01-2022 Evaluation note* Diagnosis Onset Date Resolution Status Coronary artery disease with angina pectoris acute History of coronary artery bypass surgery September, acute Status post coronary artery bypass graft acute 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 CVA (cerebral vascular accident) chronic Essential tremor chronic Hyperlipidemia chronic Nicotine dependence chronic Stented coronary artery October 06, 2017 ch ronic Scalp pain acute Scalp wound acute Nicotine dependence chronic History of coronary artery bypass surgery September, acute Postoperative atrial fibrillation acute Syncope and collapse acute 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 Epilepsy [...] 2017 ch [facility] Acute encephalopathy resolve d [facility] Work Phone: 1(405) 461-470206-01-2022 Evaluation note* Diagnosis Onset Date Resolution Status Scalp pain acute Scalp wound acute Nicotine dependence chronic History of coronary artery bypass surgery September, acute Postoperative atrial fibrillation acute Syncope and collapse acute 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 Epilepsy [...] dependence, cigarettes, uncomplicated acute Pulmonary nodule acute [facility] Work Phone: 1(763) 540-675906-01-2022 Evaluation note* Diagnosis Onset Date Resolution Status Scalp pain acute Scalp wound acute Nicotine dependence chronic History of coronary artery bypass surgery September, acute Postoperative atrial fibrillation acute Syncope and collapse acute 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 Epilepsy [...] Abnormal PET of right lung a cute [facility] Work Phone: 1(363) 407-153006-01-2022 Evaluation note* Diagnosis Onset Date Resolution Status [...] a cute Nicotine dependence, cigarettes, uncomplicated chronic [facility] Work Phone: 1(123) 903-146005-20-2022 Miscellaneous Notes* Telephone Encounter - Warren Luciano - 08/21/2021 4:09 PM EDT Phoned pt regarding future appts. Itinerary mailed to his home. Preadmission instructions 09/11/21 2pm. Preoperative labs to be drawn while, since pt comes from [place]. COVID test 09/15/21 @ [facility] CABG 09/18/21 arrival time 6am procedure time 7:30am at [facility]. * Telephone Encounter - Warren Luciano - 08/14/2021 9:59 AM EDT Pt calling to reschedule CABG with Dr. Dominguez. documented in this encounterAcmc Healthcare [facility]04-30-2022 NoteHNO ID: [id number] Author: Liset Ocampo APRN.[employer] Service: ? Author Type: Nurse Practitioner Type: Progress Notes Filed: 08/01/2021 1:43 PM Note Text: No show to pre-op appointment- opened in error.[facility] 07-24-2021 Miscellaneous Notes* Telephone Encounter - Warren Luciano - 07/24/2021 1:27 PM EDT Mr. Brennan missed his preoperative instructions appt twice therefore 07/27/21 CABG needs to be reschedule to allow for this appt to take place. Left detailed message canceling surgery and requesting call back to reschedule. documented in this encounterAcm[facility]04-22-2022 Miscellaneous Notes* Telephone Encounter - Marques Curiel - 07/24/2021 10:45 AM EDT LM for patient to call us back PATRICIA. We have to cancel his surgery since he did not show up for hisappointment today. Gave him our number to call when he is able to. documented in this encounterAcmc Healthcare [facility]04-21-2022 NoteHNO ID: [id number] Author: Liset Ocampo APRN.[employer] Service: Cardiovascular Surgery Author Type: Nurse Practitioner [...] with VKA drugs, such as warfarin, the [employer] 2012 Guideline recommends [...] RA, et al. JACC 2017, 70: 252-289 Anemia Evaluation: Anemic: No [...] Vascular surgery No Other No Liset Ocampo APRN.[facility]04-21-2022 NoteHNO ID: [id number] Author: JAMILAH Waller Service: Radiology Author Type: [...] Brennan DATE: July 23, 2021 TIME: 2:13 [place] [id number] History of Present illness Narrative* JAMILAH Waller - 07/23/2021 1:30 PM EDT Radiology Service [...] 2021 TIME: 2:13 PM documented in this encounterAcmc [facility]04-19-2022 Miscellaneous Notes* Telephone Encounter - Krunal Mcdonald, RT(R) - 07/21/2021 8:46 AM EDT PT: Radha Brennan MR# [id number] RESCHEDULED per Radiologist Dr. LENY RAMOS RADIOLOGIST. Pt needs a CTA GATED CHEST for PRE_OP OPEN HEART, Scan Cannot be done at [facility]. Please put new order for CTA GATED THORAX WITH CONTRAST IN, , HE IS SCHEDULED FOR July 23 PER RADIOLOGIST AT [facility]. documented in this encounterAcmc Healthcare [facility]04-14-2022 NoteHNO ID: [id number] Author: Shirley Jamil RRT Service: ? Author Type: Respiratory Therapist Type: Progress Notes Filed: 07/16/2021 11:23 AM Note Text: PULM FUNCTION SMARTBLOCK: Provider: Forrest Lott APRN.[employer] Assisting Tech: Shirley Jamil RRT Spirometry: 1 DLCO: 1 LV - Box: 1 System: [id number]04-04-2022 Miscellaneous Notes* Telephone Encounter - Warren Luciano - 07/06/2021 2:16 PM EDT Phoned pt regarding future appts. Itinerary mailed to pt's home. 07/16/21 PFT's, Carotid US, CTA Chest @ [facility]. NPO 4 hours, water ok prior to CT scan Preadmission instructions and exam 07/20/21 1pm with Liset Ocampo CNP. Preoperative labs to be drawn on 07/20/21 while in town. No fasting required. Echocardiogram 07/21/21 9:40am [facility] COVID testing 07[facility] CABG 07/27/21 arrival time 6am procedure time 7:30am @ [facility]. documented in this encounterAcmc Healthcare [facility]03-25-2022 Miscellaneous Notes* Telephone Encounter - Forrest Lott APRN.CNP - 06/26/2021 1:11 PM EDT documented in this encounterAcmc Healthcare [facility]03-24-2022 NoteHNO ID: [id number] Author: Gregorio Dominguez MD Service: ? Author [...] mild luminal irregularities An echo performed in 2019 showed largely well preserved left ventricular function [...] MEDICAL HISTORY Diagnosis Date - Atherosclerosis of [place] coronary artery of [place] heart with angina pectoris (HCC) - Atrial septal aneurysm - Cerebrovascular accident (CVA) due to embolism of cerebral artery (HCC) - 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 (HCC) - LV [...] There is no J (more content not included)...[facility]03-24-2022 NoteHNO ID: [id number] Author: Forrest Lott APRN.[employer] Service: ? Author Type: Nurse Practitioner Type: Progress Notes Filed: 06/25/2021 11:58 AM Note Text: [facility] Adult Cardiac Surgery Database Version 4.20 RISK SCORES Procedure: Isolated CAB Risk of Mortality: 1.130% Renal Failure: 0.623% Permanent Stroke: 1.195% Prolonged Ventilation: 6.860% DSW Infection: 0.146% Reoperation: 3.841% Morbidity or Mortality: 10.974% Short Length of Stay: 50.020% Long Length of Stay: 4.336% Forrest Lott APRN.ODALISRedington-[facility]02-08-2021 History of Past illness Narrative* Problem Noted Date Resolved Date Diarrhea 05/12/2020 09/28/2021 documented as of this encounter (statuses as of 09/28/2021) [facility] History of Past illness Narrative* Problem Noted Date Resolved Date Diarrhea 05/12/2020 09/28/2021 documented as of this encounter (statuses as of 09/30/2021) [facility] History of Past illness Narrative* Problem Noted Date Resolved Date Diarrhea 05/12/2020 09/28/2021 documented as of this encounter (statuses as of 10/02/2021) [facility] History of Past illness Narrative* Problem Noted Date Resolved Date Diarrhea 05/12/2020 09/28/2021 documented as of this encounter (statuses as of 10/04/2021) [address]08-2021 History of Past illness Narrative* Problem Noted Date Resolved Date Diarrhea 05/12/2020 09/28/2021 documented as of this encounter (statuses as of 10/06/2021) [address]08-2021 History of Past illness Narrative* Problem Noted Date Resolved Date Diarrhea 05/12/2020 09/28/2021 documented as of this encounter (statuses as of 10/07/2021) [address]08-2021 History of Past illness Narrative* Problem Noted Date Resolved Date Diarrhea 05/12/2020 09/28/2021 documented as of this encounter (statuses as of 10/09/2021) [address]08-2021 History of Past illness Narrative* Problem Noted Date Resolved Date Diarrhea 05/12/2020 09/28/2021 documented as of this encounter (statuses as of 10/10/2021) [address]08-2021 History of Past illness Narrative* Problem Noted Date Resolved Date Diarrhea 05/12/2020 09/28/2021 documented as of this encounter (statuses as of 10/15/2021) [address]08-2021 History of Past illness Narrative* Problem Noted Date Resolved Date Diarrhea 05/12/2020 09/28/2021 documented as of this encounter (statuses as of 10/15/2021) [address]08-2021 History of Past illness Narrative* Problem Noted Date Resolved Date Diarrhea 05/12/2020 09/28/2021 documented as of this encounter (statuses as of 10/17/2021) [address]08-2021 History of Past illness Narrative* Problem Noted Date Resolved Date Diarrhea 05/12/2020 09/28/2021 documented as of this encounter (statuses as of 10/22/2021) [address]08-2021 History of Past illness Narrative* Problem Noted Date Resolved Date Diarrhea 05/12/2020 09/28/2021 documented as of this encounter (statuses as of 10/26/2021) [address]08-2021 History of Past illness Narrative* Problem Noted Date Resolved Date Diarrhea 05/12/2020 09/28/2021 documented as of this encounter (statuses as of 10/27/2021) [facility] History of Past illness Narrative* Problem Noted Date Resolved Date Diarrhea 05/12/2020 09/28/2021 documented as of this encounter (statuses as of 11/06/2021) [facility] History of Past illness Narrative* Problem Noted Date Resolved Date Diarrhea 05/12/2020 09/28/2021 documented as of this encounter (statuses as of 11/07/2021) [facility]ighDis[facility] summary Author Arben Orourke [facility] Note Date/Time November 10, 2024 3:1 7am [facility] Medical Records Department [address] [place] [address] Emergency Department Summary 11/10/24 MR#: [id number] Acct: [id number] Name: RADHA BRENNAN Rep #:[id number] : 1955 69 From: Arben Orourke DO PCP: Dr. Parish Graff DO Status:REG ER Location: ED HPI History of Present Illness Chief Complaint: Dizziness Narrative Narrative: Patient is a 69-year-old male with past medical history of iron deficiency anemia, GERD, small cell B lymphoma, alcohol use, hypercholesteremia, migraine headache, Parkinson's disease, hypertension, seizure, hyperlipidemia, CVA who presented to the emergency department with a chief complaint of almost passing out. Patient apparently according to EMS notes that he went to the bathroom stood up and became dizzy patient states that this happened before and he statesthat he is unsure when his symptoms started. Per EMS the patient was at his baseline. [facility] Medical History Small lymphocytic lymphoma Prediabetes [...] collapse Seizure Hyperlipidemia Atherosclerotic heart disease of [place] coronary artery without angina pectoris Chronic back pain Atrial septal aneurysm Abnormal electrocardiogram CVA (cerebral vascular accident) Nicotine dependence Home Medications ?Medication ?Instructions ?Recorded ?Last Taken ?Type acetaminophen 500 mg capsule 1,000 mg (2 x 500 mg) PO Q6H PRN 02/24/22 Unknown Rx pain #120 caps folic acid 1 mg tablet 1 mg PO DAILY supplement #90 tabs 03/30/22 Unknown Rx magnesium oxide 400 mg (241.3 mg 400 mg PO DAILY suppl ement #90 tabs 03/30/22 Unknown Rx magnesium) tablet ascorbate calcium (vitamin C) 500 500 mg PO DAILY maggie min #90 tabs 06/16/22 Unknown Rx mg tablet aspirin 81 mg tablet,delayed 81 mg PO DAILY heart heal th #90 06/16/22 12/17/22 Rx release (Adult Aspirin Regimen) tabs ferrous sulfate 325 mg (65 mg 325 mg PO DAILY suppleme nt #90 tabs 06/16/22 Unknown Rx iron) tablet (FeroSul) multivitamin with folic acid 400 1 tab PO DAILY vitami n #90 tabs 06/16/22 Unknown Rx mcg tablet (Daily-Tin (with folic acid)) lamotrigine 100 mg tablet 100 mg PO BID seizures #60 t abs 09/09/22 Unknown Rx front wheeled walker #1 ea 11/26/22 Unknown Rx escitalopram oxalate 10 mg tablet 10 mg PO DAILY #90 t abs 12/15/22 Unknown Rx (Lexapro) thiamine HCl (vitamin B1) 100 mg 100 mg PO BID supplem ent 12/22/22 Unknown History tablet atorvastatin 80 mg tablet 80 mg PO QDAY 07/28/23 Unkno wn History metoprolol succinate 25 mg 12.5 mg PO QDAY 07/28/23 Un known History tablet,extended release 24 hr epinephrine 0.3 mg/0.3 mL 0.3 mg IM ONCE 03/12/24 Unkn own History injection, auto-injector (EpiPen 2-Sebastian) mirtazapine 30 mg tablet 30 mg PO QDAY 03/12/24 Unkno wn History pantoprazole 40 mg tablet,delayed 40 mg PO QDAY 12/09/ 24 Unknown History release sennosides 8.6 mg tablet (senna) 8.6 mg PO QDAY Unknown History levetiracetam 500 mg tablet 500 mg PO BID 03/13/24 Unk nown History pramipexole 0.125 mg tablet 0.125 mg PO TID 03/13/24 U nknown History primidone 50 mg tablet 50 mg PO Q8H 04/05/24 Unknow n History nitroglycerin 0.4 mg sublingual 0.4 mg sublingual Q5-1 5M PRN chest 04/10/24 Unknown Rx tablet (Nitrostat) pain #25 tabs budesonide 160 mcg-glycopyr 9 2 inh inhalation BID #10 .7 grams 07/18/24 Unknown Rx mcg-formot 4.8 mcg/actuation HFA inhaler (Breztri Aerosphere) Allergy/AdvReac Type Severity Reaction Status Date / Time bee venom protein (honey bee) Allergy Severe Anaphylaxis Verified 10/18/24 13:34 tuberculin, purified protein Allergy Severe Swelling Verified 10/18/24 13:34 deriva Family History Mother Myocardial infarction Cancer Diabetes COPD (chronic obstructive pulmonary disease) Brother Myocardial infarction Cancer Diabetes Sister Cancer Diabetes Heart disease Father Lung cancer Surgical History History of cardiac catheterization Hx of neck surgery History of coronary artery bypass surgery (~09/21/21) S/P triple vessel bypass Stented coronary artery (10/06/17) History of lumbar puncture (~04/2017) finger surgery lymph node resection Social History household members: family Smoking Status: Heavy Smoker (>10/day) Tobacco: How many years used: 61 Electronic Cigarette Use: not used second hand exposure: Yes alcohol intake: former year quit: 2014 details: Patient reduced his alcohol intake when 'his lady passed in 2014' substance use type: does not use caffeine: Yes Type: carbonated beverages and coffee ROS ROS ED ROS Narrative Constitutional: Denies any headache, lightness, fever, chills Eyes: Denies change in vision double vision blurry vision Cardiovascular: Denies chest pain or palpitations Respiratory: Denies coughing wheezing shortness of breath Abdomen: Denies nausea vomit diarrhea : Denies any urinary symptoms Neurological: Denies any numbness, weakness, tingling Musculoskeletal: Denies any back pain Skin: Denies any rashes or lesions EXAM Physical Exam Narrative Exam Narrative: General: Patient was lying in bed rest comfortably did not appear to be in acutedistress Head: Atraumatic, normocephalic Eyes: PERRL bilaterally, EOMI bilaterally, no conjunctival injection noted Neck: Soft, supple, trachea midline Cardiovascular: Patient is bradycardic Respiratory: Clear to auscultation bilaterally Abdomen: Soft, nondistended, nontender to palpation Extremities: Patient moving all extremities on exam Neurological: Patient follow commands knew that he was at the hospital was confused on the year Skin: Warm, dry, intact no rashes lesions noted Const Vital Signs: 11/10/24 00:11 11/10/24 00:29 11/10/24 01:14 Temperature 97.7 F L Temperature Source Oral Pulse Rate 56 L 57 L Respiratory Rate 15 16 Blood Pressure 130/72 H Blood Pressure Mean 91 Pulse Ox 96 96 99 Oxygen Delivery Method Room Air Room Air 11/10/24 01:15 11/10/24 01:31 11/10/24 01:45 Temperature Temperature Source Pulse Rate 59 L 53 L 52 L Respiratory Rate 16 15 13 Blood Pressure Blood Pressure Mean Pulse Ox 99 99 99 Oxygen Delivery Method 11/10/24 02:00 Temperature Temperature Source Pulse Rate 54 L Respiratory Rate 14 Blood Pressure Blood Pressure Mean Pulse Ox 99 Oxygen Delivery Method MDM MDM MDM Narrative Medical decision making narrative: Patient is a 69-year-old male who presented to the emergency department the chief complaint of going to the bathroom standing up and having a near syncopal episode. On the differential diagnosis includes but not limited to dehydration,orthostatic hypotension, ACS, pneumothorax, generalized weakness, alcohol abuse. Once workup is obtained reviewed he will be reevaluated. Patient be given IV fluids. Patient's CBC reviewed and showed a white blood count of 16,000 he has chronically elevated white blood cell count according to previous blood draws, hemoglobin stable 13.2, platelet count normal at 217. Patient's INR normal at 1.1, PT 14.7. Patient sodium was normal at 141, potassium normal 3.7, creatinine was 0.94. Patient's troponin was 9 with a delta troponin of 9, EKG showed sinus bradycardia with a rate of 56 bpm with a ND interval that is normalat 172. Patient's urinalysis pending however he wants to go home and he does not have any urinary symptoms at this point in time . Patient's CT head and brain without contrast was reviewed which showed no acute intracranial findings. Patient chest x-ray reviewed by myself by radiology showed no acute cardiopulmonary processes. On reevaluation the patient he will to go home and he states that he feels much better. He ambulated well here in the emergency department without any difficulty no hypoxia no tachycardia. Discussed the results with the patient and family members at bedside they are agreeable with this plan. He is advised to follow-up with his doctor in the outpatient setting return with worsening symptoms or any concerns. All questionconcerns answered he is discharged home in stable condition Lab Data Labs: Laboratory Results - last 24 hr 11/10/24 11/10/24 11/10/24 00:26 01:35 02:40 WBC 16.6 H RBC 3.81 L Hgb 13.2 Hct 38.9 L MCV 102.1 H MCH 34.6 H MCHC 33.9 RDW Std Deviation 49.1 H RDW Coeff of Verito 13.0 Plt Count 217 MPV 9.9 Immature Gran % (Auto) 0.200 Neut % (Auto) 20.7 L Lymph % (Auto) 59.7 H [place] % (Auto) 12.4 H Eos % (Auto) 6.9 H Baso % (Auto) 0.1 Absolute Neuts (auto) 3.4 Absolute Lymphs (auto) 9.90 H Nucleated RBC % 0 Differential Comment SCANNED Diff Path Review August foll PT 14.7 INR 1.1 APTT 22.6 L Sodium Cancelled 141 Potassium Cancelled 3.7 Chloride Cancelled 105 Carbon Dioxide Cancelled 26.2 Anion Gap Cancelled 10 BUN Cancelled 18 Creatinine Cancelled 0.94 Estim Creat Clear Calc 61.35 65.26 Est GFR (MDRD) Non-Af Cancelled 87 BUN/Creatinine Ratio Cancelled 18.5 Glucose Cancelled 80 Calcium Cancelled 8.6 Troponin T High Sens 9 Troponin T Hi Sens 2 Hr 9 Radiography Diagnostic Testing: Clinical Impression(s) from Imaging Studies Brain CT 11/10/24 00:29 IMPRESSION: No acute intracranial findings Reading Location: [place] [address] Chest X-Ray 11/10/24 01:24 IMPRESSION: No acute findings Reading [facility] Triage Chief Complaint: Dizziness ED Provider: Arben Orourke Dx/Rx/DC Orders Clinical Impression: Near syncope, History of seizure, Hypertension, History of CVA (cerebrovascularaccident) Prescriptions: No Action lamotrigine 100 mg tablet 100 mg PO BID Qty: 60 5RF primidone 50 mg tablet 50 mg PO Q8H Rx Instructions: 50mg twice daily and 75 mg at bedtime metoprolol succinate 25 mg tablet extended release 24 hr 12.5 mg PO QDAY atorvastatin 80 mg tablet 80 mg PO QDAY nitroglycerin [Nitrostat] 0.4 mg tablet, sublingual 0.4 mg sublingual Q5-15M PRN (Reason: chest pain) Qty: 25 3RF Rx Instructions: do not exceed 3 doses per episode levetiracetam 500 mg tablet 500 mg PO BID pramipexole 0.125 mg tablet 0.125 mg PO TID epinephrine [EpiPen 2-Sebastian] 0.3 mg/0.3 mL auto-injector 0.3 mg IM ONCE Rx Instructions: as a single dose; may repeat once mirtazapine 30 mg tablet 30 mg PO QDAY pantoprazole 40 mg tablet,delayed release (DR/EC) 40 mg PO QDAY sennosides [senna] 8.6 mg tablet 8.6 mg PO QDAY Breztri Aerosphere 160-9-4.8 mcg/actuation HFA aerosol inhaler 2 inh inhalation BID Qty: 10.7 11RF thiamine HCl (vitamin B1) 100 mg tablet [...] 1 tab PO DAILY Qty: 90 3RF (DME) front wheeled walker See Rx Instructions .Route .MEDSUPPLY Qty: 1 0RF Rx Instructions: As directed escitalopram oxalate [Lexapro] 10 mg tablet 10 mg PO DAILY Qty: 90 3RF Primary Care Provider: Parish Graff Referrals: Parish Graff DO [Primary Care Provider] - Activity Restrictions/Additional Instructions: Follow-up with your doctor in the outpatient setting. Return with worsening symptoms or any concerns. Your blood work, chest x-ray, EKG and CT of your headdid not show any acute findings. Ensure you are drinking plenty of water. Print Language: Chilean Disposition Disposition: Home, Self Care What to do if you have Problems For any increased pain, shortness of breath, bleeding, nausea or vomiting, chestpain, or any unexpected problems, contact your Primary Care Provider. Call [facility] ([phone]) or report to the closest Emergency Room. Call 911 if necessary. 11/10/24316 <Electronically signed by Arben Orourke DO> Enma Signature (if applicable): CC: Dr. Parish Graff DO ~ Signed [facility] Work Phone: Evaluation + Plan note Future Appointments Appointment Date:02/10/2023 09:30:00 AM Scheduled Provider:PARISH GRAFF DO [facility] Type: OV [facility] Evaluation + Plan note Future Appointments Appointment Date:03/04/2023 08:00:00 AM Scheduled Provider:PARISH GRAFF DO Location:[facility] Appointment Type: OV Appointment Date:04/14/2023 02:00:00 PM Scheduled Provider:PARISH GRAFF DO Location:[facility] Appointment Type: OV [facility] Evaluation + Plan note Future Appointments Appointment Date:03/10/2023 11:00:00 AM Scheduled Provider: Location:RAD Appointment Type:VL AOH - Carotid US/Doppler Complete Appointment Date:04/14/2023 02:00:00 PM Scheduled Provider:PARISH GRAFF DO Location:[facility] Appointment Type:PC OV Future Scheduled Tests Radiology* NM Myocardial Spect Rest/Stress 03/04/23 [facility] evaluation + Plan note Future Appointments Appointment Date:03/16/2023 08:00:00 AM Scheduled Provider: Location:RAD Appointment Type:NM Myocardial Spect Rest/Stress [place] Appointment Date:03/16/2023 02:00:00 PM Scheduled Provider: Location:RAD Appointment Type:CV Procedure - AOH Echo Appointment Date:03/17/2023 02:40:00 PM Scheduled Provider:JOHN MATUTE MD Location:[facility] [place] Appointment Type: WINDOW/DISTRIBUTION CLERK Appointment Date:04/14/2023 02:00:00 PM Scheduled Provider:PARISH GRAFF DO Location:[facility] Appointment Type:PC OV Future Scheduled Tests Radiology* NM Myocardial Spect Rest/Stress 03/16/23 [facility] Evaluation + Plan note Future Appointments Appointment Date:03/17/2023 02:40:00 PM Scheduled Provider:JOHN MATUTE MD Location:[facility] [place] Appointment Type: WINDOW/DISTRIBUTION CLERK Appointment Date:04/14/2023 02:00:00 PM Scheduled Provider:PARISH GRAFF DO Location:[facility] Appointment Type:PC OV [facility] Evaluation + Plan note Future Appointments Appointment Date:04/25/2023 10:00:00 AM Scheduled Provider:JONEL CHILEL JR, MD Location:[facility] [place] Appointment Type:[facility] Hospital Follow Up Appointment Date:05/05/2023 11:30:00 AM Scheduled Provider:PARISH GRAFF DO Location:[facility] Appointment Type:PC OV Future Scheduled Tests Radiology* XR Spine Lumbar W/Obliques 4 Views 04/07/23 [facility] Evaluation + Plan note Future Appointments Appointment Date:02/16/2024 04:30:00 PM Scheduled Provider:PARISH GRAFF DO [facility] Appointment Type:PC OV Future Scheduled Tests Laboratory* Prostate Specific Antigen 05/05/23 * A1C Hemoglobin 05/05/23 * Complete Blood Count 05/05/23 * Lipid Profile 05/05/23 * Hepatitis C Antibody IgG 05/05/23 * Complete Metabolic Panel 05/05/23 Radiology* XR Chest 2 Views (PA & Lateral) 05/24/23 * XR Spine Lumbar W/Obliques 4 Views 04/07/23 [facility] Evaluation + Plan note Future Appointments Appointment Date:02/29/2024 12:00:00 PM Scheduled Provider: Location: Appointment Type:IR Lymph Node Biopsy Appointment Date:03/08/2024 01:20:00 PM Scheduled Provider:JOHN MATUTE MD Location:[facility] [place] Appointment Type:GS OV Post Op Appointment Date:03/19/2024 01:00:00 PM Scheduled Provider:PARISH GRAFF DO Location:[facility] Appointment Type:PC OV Future Scheduled Tests Laboratory* Prostate Specific Antigen 05/05/23 * A1C Hemoglobin 05/05/23 * Complete Blood Count 05/05/23 * Lipid Profile 05/05/23 * Hepatitis C Antibody IgG 05/05/23 * Complete Metabolic Panel 05/05/23 Radiology* XR Chest 2 Views (PA & Lateral) 05/24/23 * XR Spine Lumbar W/Obliques 4 Views 04/07/23 * IR Lymph Node Biopsy 02/29/24 [facility] Evaluation + Plan note Future Appointments Appointment Date:07/05/2024 02:30:00 PM Scheduled Provider:PARISH GRAFF DO [facility] Appointment Type:PC OV Future Scheduled Tests Laboratory* Vitamin B1 (Thiamine), Blood 05/10/24 * Thyroid Stimulating Hormone 05/10/24 * Free T4 05/10/24 * Vitamin B12 Level 05/10/24 * A1C Hemoglobin 05/10/24 * Complete Blood Count 05/10/24 * Lipid Profile 05/10/24 * Albumin/Creatinine Ratio, Random Urine 05/10/24 * Complete Metabolic Panel 05/10/24 [facility] Evaluation + Plan note Future Appointments Appointment Date:11/01/2024 01:30:00 PM Scheduled Provider:PARISH GRAFF DO Location:[facility] Appointment Type:PC Wellness Medicare Diagnostic Tests Pending [...] Urine 07/05/24 * Complete Metabolic Panel 07/05/24 [facility] Evaluation + Plan note Future Appointments Appointment Date:11/01/2024 01:30:00 PM Scheduled Provider:PARISH GRAFF DO Location:[facility] Appointment Type:PC Wellness Medicare Diagnostic Tests Pending * Vitamin B1 (Thiamine), Blood 08/28/24 Future Scheduled Tests Laboratory* Albumin/Creatinine Ratio, Random Urine 07/05/24 [facility] Evaluation + Plan note Future Appointments Appointment Date:11/01/2024 01:30:00 PM Scheduled Provider:PARISH GRAFF DO Location:[facility] Appointment Type:PC Wellness Medicare Future Scheduled Tests Laboratory* Thyroid Stimulating Hormone 08/31/24 * Free T4 08/31/24 * Albumin/Creatinine Ratio, Random Urine 07/05/24 [facility] Evaluation + Plan note Future Appointments Appointment Date:11/01/2024 01:30:00 PM Scheduled Provider:PARISH GRAFF DO Location:[facility] Appointment Type:PC Wellness Medicare Future Scheduled Tests Laboratory* Thyroid Stimulating Hormone 08/31/24 * Free T4 08/31/24 * Albumin/Creatinine Ratio, Random Urine 07/05/24 Radiology* XR Chest 2 Views (PA & Lateral) 10/04/24 [facility] Evaluation + Plan note Future Appointments Appointment Date:02/01/2025 04:00:00 PM Scheduled Provider:PARISH GRAFF DO Location:[facility] Appointment Type:PC OV Follow Up Future Scheduled Tests Laboratory* Prostate Specific Antigen 11/01/24 * Thyroid Stimulating Hormone 11/01/24 * Thyroid Stimulating Hormone 08/31/24 * Free T4 11/01/24 * Free T4 08/31/24 * APTT 11/01/24 * Complete Blood Count 11/01/24 * Albumin/Creatinine Ratio, Random Urine 07/05/24 * Prothrombin Time - Panel 11/01/24 * Complete Metabolic Panel 11/01/24 Radiology* NM Myocardial Spect Rest/Stress 11/16/24 * XR Chest 2 Views (PA & Lateral) 10/04/24 [facility] Evaluation note* Diagnosis 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)- Primary Preoperative testing Preoperative examination, unspecified Disorder of arteries and arterioles (HCC) Unspecified disorders of arteries and arterioles Cerebrovascular accident (CVA), unspecified mechanism (HCC) [facility] Diagnosis Onset Date Resolution Status Coronary artery disease with angina pectoris acute Atrial septal aneurysm chron ic Hyperlipidemia chronic Seizure chronic Cerebrovascular disease acut e Epilepsy acute Essential tremor acute Chest pain acute Coronary artery disease with angina pectoris acute Hyperlipidemia chronic Cerebrovascular disease acut e Epilepsy acute Essential tremor acute [facility] Work Phone: Evaluation note* Diagnosis Chronic obstructive pulmonary disease, unspecified COPD type (HCC) 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) [facility] Diagnosis Disorder of arteries and arterioles (HCC) Unspecified disorders of arteries and arterioles 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) [facility] Diagnosis 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)- Primary Preoperative testing Preoperative examination, unspecified Disorder of arteries and arterioles (HCC) Unspecified disorders of arteries and arterioles 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) [facility] Diagnosis 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) Preoperative testing Preoperative examination, unspecified Disorder of arteries and arterioles (HCC) Unspecified disorders of arteries and arterioles 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) [facility] Diagnosis Coronary artery disease involving [place] coronary artery of [place] heart without angina pectoris- Primary Preoperative testing Preoperative examination, unspecified [facility] Diagnosis Pre-op examination- Primary Preoperative examination, unspecified Coronary artery disease involving [place] coronary artery of [place] heart without angina pectoris [facility] Diagnosis Hemoglobinuria- Primary Coronary artery disease involving [place] coronary artery of [place] heart without angina pectoris [facility]* Diagnosis BPH with obstruction/lower urinary tract symptoms- Primary Hypertrophy of prostate with urinary obstruction and other lower urinary tract symptoms (LUTS) Hematuria, unspecified type 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 (HCC) Coronary artery disease involving [place] coronary artery of [place] heart without angina pectoris [facility]* Diagnosis S/P CABG x 3- Primary Postsurgical aortocoronary bypass status Coronary artery disease involving [place] coronary artery of [place] heart without angina pectoris Paroxysmal atrial fibrillation (HCC) Atrial fibrillation Chronic obstructive pulmonary disease, unspecified COPD type ([facility]) Tobacco abuse Tobacco use disorder Acute blood loss anemia Acute posthemorrhagic anemia Severe protein-calorie malnutrition (HCC) Other severe protein-calorie malnutrition [facility]* Diagnosis Onset Date Resolution Status Cerebrovascular [...] graft acute 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 CVA (cerebral vascular accident) chronic [facility] Work Phone: Evaluation note* Diagnosis S/P CABG x 3- Primary Postsurgical aortocoronary bypass status Coronary artery disease involving [place] coronary artery of [place] heart without angina pectoris Paroxysmal atrial fibrillation (HCC) Atrial fibrillation Chronic obstructive pulmonary disease, unspecified COPD type (HCC) Acute blood loss anemia Acute posthemorrhagic anemia Severe protein-calorie malnutrition (HCC) Other severe protein-calorie malnutrition Tobacco abuse Tobacco use disorder [facility] Diagnosis Onset Date Resolution Status Cerebrovascular [...] graft acute 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 CVA (cerebral vascular accident) chronic Arm pain, left acute History of coronary artery disease acute Musculoskeletal arm pain acu te Status post coronary artery bypass graft acute Nicotine dependence chronic [facility] Work Phone: Evaluation note* Diagnosis S/P CABG x 3- Primary Postsurgical aortocoronary bypass status Coronary artery disease involving [place] coronary artery of [place] heart without angina pectoris Paroxysmal atrial fibrillation (HCC) Atrial fibrillation Chronic obstructive pulmonary disease, unspecified COPD type (HCC) Acute blood loss anemia Acute posthemorrhagic anemia Tobacco abuse Tobacco use disorder Severe protein-calorie malnutrition (HCC) Other severe protein-calorie malnutrition [facility] Diagnosis S/P CABG x 3 Postsurgical aortocoronary bypass status [facility] Diagnosis Onset Date Resolution Status Cerebrovascular [...] graft acute 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 CVA (cerebral vascular accident) chronic Status post coronary artery bypass graft acute Nicotine dependence chronic Postoperative atrial fibrillation acute Status post coronary artery bypass graft acute 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 [facility] Work Phone: Evaluation note* Diagnosis Onset Date Resolution Status Coronary artery disease with angina pectoris acute Low back pain acute CVA (cerebral vascular accident) chronic Essential tremor chronic Hyperlipidemia chronic Nicotine dependence chronic Encounter to establish care noneactive Status post coronary artery bypass graft acute 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 CVA (cerebral vascular accident) chronic Essential tremor chronic Cerebrovascular disease reso lved Status post coronary artery bypass graft acute Nicotine dependence chronic Postoperative atrial fibrillation acute Status post coronary artery bypass graft acute 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 Anemia chronic Epilepsy chronic Essential tremor chronic Cerebrovascular disease reso lved [facility] Work Phone: Evaluation note* Diagnosis Onset Date Resolution Status Coronary artery disease with angina pectoris acute Low back pain acute CVA (cerebral vascular accident) chronic Essential tremor chronic Hyperlipidemia chronic Nicotine dependence chronic Encounter to establish care noneactive Status post coronary artery bypass graft acute 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 CVA (cerebral vascular accident) chronic Essential tremor chronic Cerebrovascular disease reso lved Status post coronary artery bypass graft acute Nicotine dependence chronic Postoperative atrial fibrillation acute Status post coronary artery bypass graft acute 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 Anemia chronic Epilepsy chronic Essential tremor chronic Cerebrovascular disease reso lved Chest wall pain acute Postoperative abdominal hernia acute Upper abdominal pain acute [facility] Work Phone: Evaluation note* Diagnosis Onset Date Resolution Status Status post coronary artery bypass graft acute 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 CVA (cerebral vascular accident) chronic Essential tremor chronic Cerebrovascular disease reso lved Status post coronary artery bypass graft acute Nicotine dependence chronic Postoperative atrial fibrillation acute Status post coronary artery bypass graft acute 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 Anemia chronic Epilepsy chronic Essential tremor chronic Cerebrovascular disease reso lved Chest wall pain acute Postoperative abdominal hernia acute Upper abdominal pain acute Postoperative atrial fibrillation acute Status post coronary artery bypass graft acute 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 Hyperlipidemia chronic Chest pain in adult acute History of coronary artery bypass surgery September, acute Postoperative atrial fibrillation acute Syncope and collapse acute 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 Epilepsy chronic Essential tremor chronic Hyperlipidemia chronic [facility] Work Phone: Evaluation note* Diagnosis Onset Date Resolution Status Postoperative atrial fibrillation acute Status post coronary artery bypass graft acute 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 Anemia chronic Epilepsy chronic Essential tremor chronic Cerebrovascular disease reso lved Chest wall pain acute Postoperative abdominal hernia acute Upper abdominal pain acute Postoperative atrial fibrillation acute Status post coronary artery bypass graft acute 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 Hyperlipidemia chronic Chest pain in adult acute History of coronary artery bypass surgery September, acute Postoperative atrial fibrillation acute Syncope and collapse acute 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 Epilepsy chronic Essential tremor chronic Hyperlipidemia chronic History of coronary artery bypass surgery September, acute Postoperative atrial fibrillation acute Syncope and collapse acute 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 Epilepsy chronic Hyperlipidemia [facility] Work Phone: Evaluation note* Diagnosis Onset Date Resolution Status Anemia chronic Epilepsy chronic Essential tremor chronic Cerebrovascular disease reso lved Chest wall pain acute Postoperative abdominal hernia acute Upper abdominal pain acute Postoperative atrial fibrillation acute Status post coronary artery bypass graft acute 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 Hyperlipidemia chronic Chest pain in adult acute History of coronary artery bypass surgery September, acute Postoperative atrial fibrillation acute Syncope and collapse acute 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 Epilepsy chronic Essential tremor chronic Hyperlipidemia chronic History of coronary artery bypass surgery September, acute Postoperative atrial fibrillation acute Syncope and collapse acute 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 Epilepsy chronic Hyperlipidemia chronic Postoperative abdominal hernia acute Weight loss acute Nicotine dependence [facility] Work Phone: Evaluation note* Diagnosis Onset Date Resolution Status Anemia chronic Epilepsy chronic Essential tremor chronic Cerebrovascular disease reso lved Chest wall pain acute Postoperative abdominal hernia acute Upper abdominal pain acute Postoperative atrial fibrillation acute Status post coronary artery bypass graft acute 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 Hyperlipidemia chronic Chest pain in adult acute History of coronary artery bypass surgery September, acute Postoperative atrial fibrillation acute Syncope and collapse acute 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 Epilepsy chronic Essential tremor chronic Hyperlipidemia chronic History of coronary artery bypass surgery September, acute Postoperative atrial fibrillation acute Syncope and collapse acute 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 Epilepsy chronic Hyperlipidemia chronic Postoperative abdominal hernia acute Weight loss acute Nicotine dependence chronic History of coronary artery bypass surgery September, acute History of stroke acute Postoperative abdominal hernia acute Recurrent seizures acute Upper abdominal pain acute 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 Essential tremor chronic Hyperlipidemia chronic Nicotine dependence chronic [facility] Work Phone: Evaluation note* Diagnosis Onset Date Resolution Status Cervical spinal stenosis acu te Epilepsy chronic Essential tremor chronic Cerebrovascular disease reso lved Coronary artery disease with angina pectoris acute History of coronary artery bypass surgery September, acute Status post coronary artery bypass graft acute 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 CVA (cerebral vascular accident) chronic Essential tremor chronic Hyperlipidemia chronic Nicotine dependence chronic Stented coronary artery October 06, 2017 ronic [facility] Work Phone: Evaluation note* Diagnosis Onset Date Resolution Status Nicotine dependence, cigarettes, uncomplicated chronic [facility] Work Phone: Evaluation note* Diagnosis Tremor- Primary Abnormal involuntary movements Partial symptomatic epilepsy with complex partial seizures, intractable, without status epilepticus (CMS/HCC) [facility] Diagnosis Tremor Abnormal involuntary movements [facility] Diagnosis Tremor Abnormal involuntary movements [facility] Author Zaki Vigil [facility] November 01, 2022 11:51pm Note Date/Time November 01, 2022 11:5 1pm [facility] Medical Records Department [address] [place] [address] History & Physical Exam 11/01/22 2346 MR#: [id number] Acct: [id number] Name: RADHA BRENNAN Rep #:[id number] : 1955 67 From: Zaki Vigil MD [...] an outpatient. He sees Dr. Sandhu in [place] for neurology care. [facility] Medical History Abnormal electrocardiogram Atherosclerotic heart disease of [place] coronary artery without angina pectoris Atrial septal [...] % (Auto) 46.8 L, Lymph % (Auto)40.6, [place] % (Auto) 5.3, Eos % (Auto) 6.5 [...] Guidelines 2017 MacMahon et al, Radiology 2017: https://pubs.rsna.org/doi/pdf/10.1148/[email or web address] Nodule size: <6 mm SOLITARY low-risk: no [...] weight heparin Charges/Coding Visit Charges OBSV E&M: 35114 Observ/hosp same date L2 11/01/22 2859 <Electronically signed by Zaki Vigil MD> Cosigner Signature (if applicable): CC: Dr. Radah Quintero MD; Dr. Zaki Vigil MD~ Signed [facility] Work Phone: Hospital course Narrative No data available for this section [facility] Discharge instructions Additional Instructions Plenty of [...] with a urologist for further evaluation of that.[facility] Work Phone: Hospital Discharge instructions Additional Instructions We are not going to change in your medications at this time. Call and follow-up with your primary care physician. I spoke with him today. No driving at this time.[facility] Work Phone: Hospital Discharge instructions Additional Instructions [...] may also follow-up with your primary care doctor.[facility] Work Phone: Hospital Discharge instructions No data available for this section [facility] Discharge instructions Additional Instructions Please follow-up with your primary care doctor [facility] Work Phone: Hospital Discharge instructionsAdditional Instructions Follow-up with your doctor in the outpatient setting. Return with worsening symptoms or any concerns. Your blood work, chest x-ray, EKG and CT of your head did not show any acute findings. Ensure you are drinking plenty of water.[facility] Work Phone: Patient's home Plan of care note* Visit Details Visit Type -SN SOC Discipline -Half-Way Problems Problem Description Start Date Status Goals [...] surgical care precautions. documented in this encounter [facility] Plan of care note* Visit Details Visit Type -SN ROUTINE Discipline -Half-Way Problems Problem Description Start Date Status Goals [...] surgical care precautions. documented in this encounter [facility] Plan of care note* Visit Details Visit Type -SN ROUTINE Discipline -Half-Way Problems Problem Description Start Date Status Goals [...] surgical care precautions. documented in this encounter [facility] Plan of care note* Visit Details Visit Type -SN ROUTINE Discipline -Half-Way Problems Problem Description Start Date Status Goals [...] and pain management. documented in this encounter [facility] Plan of care note* Visit Details Visit Type -SN AGENCY DC W V ISIT Discipline -Half-Way Problems Problem Description Start Date Status Goals [...] surgical care precautions. [facility] No data available for this section [facility] Progress note Author Rita Mathew [facility] Note Date/Time January 10, 2025 3: 28pm [facility] [place] [address] OFFICE VISIT Date of Service: 01/10/25 1506 MR#: [id number] Acct: [id number] Name: RADHA BRENNAN Rep #: [id number] : 1955 From: Rita pablo MD Age/Sex: 69/M Location: [facility] Status: Signed HPI Subjective Date of Service 01/10/25 Chief Complaint Lymphoma History of Present Illness [...] interim development of defined viable neoplastic disease. 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 Chronic back [...] complaints, except as documented Intake Vital Signs 10/18/24 13:35 01/10/25 15:07 Height 5 ft 8.5 in 5 ft 8.5 in Weight: 61.802 kg BMI 20.4 BP 106/65 Blood Pressure Location Lt brachial Position Sitting Respiration 18 Pulse 53 L Pulse Source Monitor Temp 99.2 F H Temperature Source Temporal Artery Pulse Oximetry (%) 97 Oxygen Delivery Method room air Intake Is patient in pain?: No Allergies bee venom protein (honey bee) Allergy (Severe, Verified 01/10/25 15:15) Anaphylaxis tuberculin, purified protein deriva Allergy (Severe, Verified 01/10/25 15:15) Swelling Medications ?Medication ?Instructions ?Recorded ?Confirmed ?Type acetaminophen 500 mg capsule 1,000 mg (2 x 500 mg) PO Q6H PRN 02/24/22 01/10/25 Rx pain #120 caps folic acid 1 mg tablet 1 mg PO DAILY supplement #90 tabs 03/30/22 01/10/25 Rx magnesium oxide 400 mg (241.3 mg 400 mg PO DAILY suppl ement #90 tabs 03/30/22 01/10/25 Rx magnesium) tablet ascorbate calcium (vitamin C) 500 500 mg PO DAILY maggie min #90 tabs 06/16/22 01/10/25 Rx mg tablet aspirin 81 mg tablet,delayed 81 mg PO DAILY heart heal th #90 06/16/22 01/10/25 Rx release (Adult Aspirin Regimen) tabs ferrous sulfate 325 mg (65 mg 325 mg PO DAILY suppleme nt #90 tabs 06/16/22 01/10/25 Rx iron) tablet (FeroSul) multivitamin with folic acid 400 1 tab PO DAILY vitami n #90 tabs 06/16/22 01/10/25 Rx mcg tablet (Daily-Tin (with folic acid)) lamotrigine 100 mg tablet 100 mg PO BID seizures #60 t abs 09/09/22 01/10/25 Rx front wheeled walker #1 ea 11/26/22 01/10/25 Rx escitalopram oxalate 10 mg tablet 10 mg PO DAILY #90 t abs 12/15/22 01/10/25 Rx (Lexapro) thiamine HCl (vitamin B1) 100 mg 100 mg PO BID supplem ent 12/22/22 01/10/25 History tablet atorvastatin 80 mg tablet 80 mg PO QDAY 07/28/2301/10 History metoprolol succinate 25 mg 12.5 mg PO QDAY 07/28/23 History tablet,extended release 24 hr epinephrine 0.3 mg/0.3 mL 0.3 mg IM ONCE 03/12/2412/27 History injection, auto-injector (EpiPen 2-Sebastian) mirtazapine 30 mg tablet 30 mg PO QDAY 03/12/2401/10 History pantoprazole 40 mg tablet,delayed 40 mg PO QDAY 01/10/25 History release sennosides 8.6 mg tablet (senna) 8.6 mg PO QDAY 01/10/25 History levetiracetam 500 mg tablet 500 mg PO BID 03/13/2412/27 History pramipexole 0.125 mg tablet 0.125 mg PO TID 03/13/24 1 History primidone 50 mg tablet 50 mg PO Q8H 04/05/24 History nitroglycerin 0.4 mg sublingual 0.4 mg sublingual Q5-1 5M PRN chest 04/10/24 01/10/25 Rx tablet (Nitrostat) pain #25 tabs budesonide 160 mcg-glycopyr 9 2 inh inhalation BID #10 .7 grams 07/18/24 01/10/25 Rx mcg-formot 4.8 mcg/actuation HFA inhaler (Breztri Aerosphere) Have you fallen in the past year?: Yes Laboratory Tests 03/13/24 07/10/24 10/18/24 11:20 07:28 12:23 WBC 13.3 H Hgb 12.7 L Plt Count 263 Absolute Neuts (auto) 4.3 Absolute Lymphs (auto) 5.33 H 8.55 H 7.06 H Lactate Dehydrogenase 158 11/10/24 01/10/25 00:26 14:15 WBC 15.8 H Hgb 13.3 Plt Count 221 Absolute Neuts (auto) 3.8 Absolute Lymphs (auto) 9.90 H 10.03 H Lactate Dehydrogenase Exam Physical Exam Narrative Strongly smelling of cigarette smoke Const alert, oriented x3 and no apparent distress General Appearance: cooperative and comfortable Coding Level of Care Code Off vis,est,level 4 Exam Problem Focused Diagnoses Small lymphocytic lymphoma C83.00 Assessment and Plan Assessment and Plan (1) Small lymphocytic lymphoma: Status: Chronic Plan 69-year-old male with small lymphocytic lymphoma (or chronic lymphocytic leukemia) presenting with painless generalized lymphadenopathy, no B symptoms. SLL/CLL is an indolent B cell lymphoid malignancy that tends to have a long natural history and is not curable by any standard therapy. Asymptomatic disease is watched. Chronic comorbid conditions: COPD, smoker, multiple lung nodules on surveillanceunder care of pulmonary, coronary artery disease, seizure disorder, history of cerebrovascular disease, dyslipidemia, history of alcoholism sober for a number of years. Plan: 1. SLL/CLL watchful no indication for systemic therapy. Follow-up in 6 months 2. For multiple lung nodules and high risk cancer he is to continue follow-up with pulmonary and refer to lung cancer screening register. Patient was seen impression and recommendations discussed. Rita Mathew MD Loss Mitigation Specialist, [facility] Divisions of Medical Oncology & Hematology Department of Internal Medicine [place] [id number] This note was generated using a voice recognition system software. Although itwas reviewed by the author prior to finalization, it may still contain incorrectwords, spelling, and punctuation that were not noted when reviewing prior to saving. If a clinically significant typo or inaccurately typed phrase is noted, please notify the author. Clinical Quality Measures Falls Risk Screening/Assistive Devices Have you fallen in the past year?: Yes 01/10/25 1528 <Electronically signed by Rita ding MD> Date _ Rita Mathew MD Cosigner Signature: Date (if applicable) CC: WINDOW/DISTRIBUTION CLERKJeff Jefferson; Dr. Parish Graff, DO ~ [facility] Work Phone: Reason for referral (narrative)No reason for referral information availableQueen Of The Valley Hospital Work Phone: Surgery Outpatient Note* Event Display: General Surgery Office Note [facility] Summary Purpose Family History Relationship Condition Age at Onset Recorded Date/T matilde mother Myocardial infarction Unknown brother Myocardial infarction Unknown Relationship Condition Age at Onset Recorded Date/T matilde mother Myocardial infarction Unknown Malignant neoplasm Unknown Diabetes mellitus Unknown Chronic obstructive pulmonary disease Unk nown brother Myocardial infarction Unknown sister Malignant neoplasm Unknown Cardiac disease Unknown father Malignant neoplasm of lung Unknown Advance Directives Advance Directive Response Recorded Date/ Time Advance Directives No May 8:05am Living Will No July 04, 2021 6:57pm Power of Cardiac Cath Lab Technologist No July 04 6:57pm Documents on File Type Date Recorded 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 Advance Directive(s) 09/21/2021 6:00 AM Latest Code Status on File Code Status Date Activated Date Inactivated Comments Full Code 10/01/2021 8:42 AM Documents on File Type Date Recorded 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 Advance Directive(s) 09/21/2021 6:00 AM Latest Code Status on File Code Status Date Activated Date Inactivated Comments Full Code 10/01/2021 8:42 AM Advance Directive Response Recorded Date/ Time Advance Directives No May 8:05am Living Will No October 16, 2021 8:54pm Power of Cardiac Cath Lab Technologist No October 16 8:54pm Advance Directive Response Recorded Date/ Time Name of Medical Power of Cardiac Cath Lab Technologist MALIK BRENNAN October 18, 2021 12:50pm Advance Directives No May 8:05am Living Will No October 18, 2021 12:50pm Power of Cardiac Cath Lab Technologist Yes October 18 12:50pm Advance Directive Response Recorded Date/ Time Name of Medical Power of Cardiac Cath Lab Technologist MALIK BRENNAN October 18, 2021 12:50pm Name of Medical Power of Cardiac Cath Lab Technologist malik brennan October 29, 2021 8:33pm Advance Directives No May 8:05am Living Will No October 29, 2021 8:33pm Power of Cardiac Cath Lab Technologist Yes October 29 8:33pm Advance Directive Response Recorded Date/ Time Name of Medical Power of Cardiac Cath Lab Technologist MALIK BRENNAN October 18, 2021 12:50pm Name of Medical Power of Cardiac Cath Lab Technologist malik brennan October 29, 2021 8:33pm Advance Directives on File No Davin [email or web address] 2021 2:36pm Advance Directives No May 8:05am Living Will No December 11 2:36pm Power of Cardiac Cath Lab Technologist No December 11, 2021 2:36pm Advance Directive Response Recorded Date/ Time Name of Medical Power of Cardiac Cath Lab Technologist MALIK BRENNAN October 18, 2021 12:50pm Name of Medical Power of Cardiac Cath Lab Technologist malik brennan October 29, 2021 8:33pm Advance Directives on File No Davin [email or web address] 2021 2:36pm Name of Medical Power of Cardiac Cath Lab Technologist MALIK BRENNAN- DAUGHTER February 05, 2022 12:07pm Advance Directives No May 8:05am Living Will Yes February 05 12:07pm Power of Cardiac Cath Lab Technologist Yes February 05, 2022 12:07pm Advance Directive Response Recorded Date/ Time Advance Directives on File No Davin snyder 2021 1:36pm Name of Medical Power of Cardiac Cath Lab Technologist MALIK BRENNAN- DAUGHTER February 05, 2022 11:07am Advance Directives No May 7:05am Living Will Yes February 05 11:07am Power of Cardiac Cath Lab Technologist Yes February 05, 2022 11:07am Advance Directive Response Recorded Date/ Time Advance Directives on File No Davin snyder 2021 1:36pm Name of Medical Power of Cardiac Cath Lab Technologist MALIK BRENNAN- DAUGHTER February 05, 2022 11:07am Advance Directives No May 7:05am Living Will No March 22, 11:32am Power of Cardiac Cath Lab Technologist No March 22, 2022 11:32am Advance Directive Response Recorded Date/ Time Advance Directives on File No Septe [email or web address] 1:36pm Name of Medical Power of Cardiac Cath Lab Technologist MALIK BRENNAN- DAUGHTER February 05, 2022 11:07am Advance Directives No May 7:05am Living Will No April 10 7:08pm Power of Cardiac Cath Lab Technologist No April 10 023 7:08pm Advance Directive Response Recorded Date/ Time Name of Medical Power of Cardiac Cath Lab Technologist MALIK BRENNAN- DAUGHTER February 05, 2022 11:07am Advance Directives No May 7:05am Living Will No April 11 3:38pm Power of Cardiac Cath Lab Technologist No April 11 023 3:38pm Advance Directive Response Recorded Date/ Time Advance Directives No May 8:05am Living Will No September 05, 2022 7 :27pm Power of Cardiac Cath Lab Technologist No September 05, 2022 7:27pm Advance Directive Response Recorded Date/ Time Name of Medical Power of Cardiac Cath Lab Technologist Kaykay Kurtz, security sales manager of [facility] September 10, 2022 1:18am Advance Directives No May 8:05am Living Will No September 10, 2022 1 :18am Power of Cardiac Cath Lab Technologist Yes September 10, 2022 1:18am Advance Directive Response Recorded Date/ Time Name of Medical Power of Cardiac Cath Lab Technologist Kaykay Kurtz, security sales manager of [facility] September 10, 2022 1:18am Name of Medical Power of Cardiac Cath Lab Technologist Malik Brennan October 20, 2022 8:19pm Advance Directives No May 8:05am Living Will Yes October 20, 2022 8:19pm Power of Cardiac Cath Lab Technologist Yes October 20 8:19pm Advance Directive Response Recorded Date/ Time Name of Medical Power of Cardiac Cath Lab Technologist Kaykay Kurtz, security sales manager of [facility] September 10, 2022 1:18am Name of Medical Power of Cardiac Cath Lab Technologist Malik Brennan October 20, 2022 8:19pm Name of Medical Power of Cardiac Cath Lab Technologist Malik Grove November 10, 2022 3:39pm Advance Directives No May 8:05am Living Will Yes November 10, 2022 3:39pm Power of Cardiac Cath Lab Technologist Yes November 10 3:39pm Advance Directive Response Recorded Date/ Time Name of Medical Power of Cardiac Cath Lab Technologist Kaykay Kurtz, security sales manager of [facility] September 10, 2022 1:18am Name of Medical Power of Cardiac Cath Lab Technologist Malik Mika October 20, 2022 8:19pm Name of Medical Power of Cardiac Cath Lab Technologist Malik Grove Mika November 10, 2022 3:39pm Name of Medical Power of Cardiac Cath Lab Technologist MALIK MIKA December 22, 2022 1:25pm Advance Directives No May 8:05am Living Will Yes December 22, 2022 1:25pm Power of Cardiac Cath Lab Technologist Yes December 1:25pm Advance Directive Response Recorded Date/ Time Name of Medical Power of Cardiac Cath Lab Technologist Malik Mika October 20, 2022 7:19pm Name of Medical Power of Cardiac Cath Lab Technologist Malik Grove Mika November 10, 2022 2:39pm Name of Medical Power of Cardiac Cath Lab Technologist MALIK MIKA December 22, 2022 12:25pm Advance Directives No May 7:05am Living Will Yes December 22, 2022 12:25pm Power of Cardiac Cath Lab Technologist Yes December 12:25pm Advance Directive Response Recorded Date/ Time Name of Medical Power of Cardiac Cath Lab Technologist Malik Groveler November 10, 2022 2:39pm Name of Medical Power of Cardiac Cath Lab Technologist MALIK IRELANDLER December 22, 2022 12:25pm Advance Directives No May 7:05am Living Will No February 27, 2 023 2:08pm Power of Cardiac Cath Lab Technologist No February 27, 2023 2:08pm Advance Directive Response Recorded Date/ Time Advance Directives No May 7:05am Living Will No May 23, 2 024 5:07pm Power of Cardiac Cath Lab Technologist No May 23, 2023 5:07pm Advance Directive Response Recorded Date/ Time Advance Directives No May 8:05am Advance Directive Response Recorded Date/ Time Do you have a Healthcare Power of Cardiac Cath Lab Technologist? 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 EST CARE - NEEDS NPP 1 M [...] artery bypass 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 CVA (cerebral vascular accident) Essential tremor Cerebrovascular disease Status post coronary artery bypass graft Nicotine dependence Postoperative atrial fibrillation 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 Anemia Epilepsy [...] artery bypass 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 CVA (cerebral vascular accident) Essential tremor Cerebrovascular disease Status post coronary artery bypass graft Nicotine dependence Postoperative atrial fibrillation 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 Anemia Epilepsy Essential tremor Cerebrovascular disease Chest wall pain Postoperative abdominal hernia Upper abdominal pain Postoperative atrial fibrillation 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 Hyperlipidemia Chest pain in adult History of coronary artery bypass surgery Postoperative atrial fibrillation Syncope and collapse 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 Essential tremor Hyperlipidemia Chief Complaint 1 M FU UPPER EXTREMITY INJURY left arm formerly [facility] HOSPITAL FU CHEST PAIN 3 M FU CHEST PAIN S/P CABG 09/21/2021 4 M FU EORDERS FU, NS Last Appt S/P CABG Per PFM, CP in [facility] S/P CABG cp in cardiac rehab INT LABS S/P CABG wound to face Reason for Visit 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 CVA (cerebral vascular accident) Essential tremor Cerebrovascular disease Status post coronary artery bypass graft Nicotine dependence Postoperative atrial fibrillation 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 Anemia Epilepsy Essential tremor Cerebrovascular disease Chest wall pain Postoperative abdominal hernia Upper abdominal pain Postoperative atrial fibrillation 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 Hyperlipidemia Chest pain in adult History of coronary artery bypass surgery Postoperative atrial fibrillation Syncope and collapse 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 Essential [...] artery bypass 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 Anemia Epilepsy Essential tremor Cerebrovascular disease Chest wall pain Postoperative abdominal hernia Upper abdominal pain Postoperative atrial fibrillation 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 Hyperlipidemia Chest pain in adult History of coronary artery bypass surgery Postoperative atrial fibrillation Syncope and collapse 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 Essential tremor Hyperlipidemia History of coronary artery bypass surgery Postoperative atrial fibrillation Syncope and collapse 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 Hyperlipidemia [...] artery bypass 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 Anemia Epilepsy Essential tremor Cerebrovascular disease Chest wall pain Postoperative abdominal hernia Upper abdominal pain Postoperative atrial fibrillation 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 Hyperlipidemia Chest pain in adult History of coronary artery bypass surgery Postoperative atrial fibrillation Syncope and collapse 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 Essential tremor Hyperlipidemia History of coronary artery bypass surgery Postoperative atrial fibrillation Syncope and collapse 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 Hyperlipidemia [...] artery bypass 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 Hyperlipidemia Chest pain in adult History of coronary artery bypass surgery Postoperative atrial fibrillation Syncope and collapse 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 Essential tremor Hyperlipidemia History of coronary artery bypass surgery Postoperative atrial fibrillation Syncope and collapse 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 Hyperlipidemia [...] artery bypass 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 Hyperlipidemia Chest pain in adult History of coronary artery bypass surgery Postoperative atrial fibrillation Syncope and collapse 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 Essential tremor Hyperlipidemia History of coronary artery bypass surgery Postoperative atrial fibrillation Syncope and collapse 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 Hyperlipidemia Postoperative abdominal hernia Weight loss Nicotine dependence Chief Complaint 4 M FU EORDERS FU, NS Last Appt S/P CABG Per PFM, CP in Card Rehab Ghulam S/P CABG cp in cardiac rehab INT LABS S/P CABG wound to face 3 M FU colds POSSIBLE ABDOMINAL WALL HERNIA ABD PAIN SEIZURE [facility] ER FU Reason for Visit Anemia Epilepsy Essential tremor Cerebrovascular disease Chest wall pain Postoperative abdominal hernia Upper abdominal pain Postoperative atrial fibrillation 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 Hyperlipidemia Chest pain in adult History of coronary artery bypass surgery Postoperative atrial fibrillation Syncope and collapse 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 Essential tremor Hyperlipidemia History of coronary artery bypass surgery Postoperative atrial fibrillation Syncope and collapse 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 Hyperlipidemia Postoperative abdominal hernia Weight loss Nicotine dependence History of coronary artery bypass surgery History of stroke Postoperative abdominal hernia Recurrent seizures Upper abdominal pain Atherosclerotic heart disease of [place] coronary artery without angina pectoris Essential tremor Hyperlipidemia Nicotine dependence Chief Complaint 4 month f/u 3 M FU, NS last appt 07/07 trauma Reason for Visit Cervical spinal sten osis Epilepsy Essential tremor Cerebrovascular disease Coronary artery disease with angina pectoris History of coronary artery bypass surgery 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 CVA (cerebral [...] artery bypass 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 CVA (cerebral vascular accident) Essential tremor Hyperlipidemia Nicotine dependence Stented coronary artery Scalp pain Scalp wound Nicotine dependence History of coronary artery bypass surgery Postoperative atrial fibrillation Syncope and collapse 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 Hyperlipidemia Scalp pain Scalp wound Nicotine dependence Cervical spinal stenosis Epilepsy Essential tremor Cerebrovascular disease Dizziness Scalp wound Vertigo Chief Complaint 3 M FU, NS last appt 05 trauma CONSULT-ER FOLLOW UP 7 MO F/U FOLLOW UP-LACERATION ON HEAD 4 M FU dizziness dizziness SOLITARY PULMONARY NODULE Seizure Reason for Visit Coronary artery dise ase with angina pectoris History of coronary artery bypass surgery 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 CVA (cerebral vascular accident) Essential tremor Hyperlipidemia Nicotine dependence Stented coronary artery Scalp pain Scalp wound Nicotine dependence History of coronary artery bypass surgery Postoperative atrial fibrillation Syncope and collapse 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 Hyperlipidemia [...] artery bypass 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 CVA (cerebral vascular accident) Essential tremor Hyperlipidemia Nicotine dependence Stented coronary artery Scalp pain Scalp wound Nicotine dependence History of coronary artery bypass surgery Postoperative atrial fibrillation Syncope and collapse 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 Hyperlipidemia [...] artery bypass 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 CVA (cerebral vascular accident) Essential tremor Hyperlipidemia Nicotine dependence Stented coronary artery Scalp pain Scalp wound Nicotine dependence History of coronary artery bypass surgery Postoperative atrial fibrillation Syncope and collapse 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 Hyperlipidemia [...] artery bypass 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 CVA (cerebral vascular accident) Essential tremor Hyperlipidemia Nicotine dependence Stented coronary artery Scalp pain Scalp wound Nicotine dependence History of coronary artery bypass surgery Postoperative atrial fibrillation Syncope and collapse 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 Hyperlipidemia [...] Seizure SEIZURE SEIZURE DISORDER SEIZURE DISORDER seizure [facility] FU Solitary lung nodule ams Reason for Visit Scalp pain Scalp wound Nicotine dependence History of coronary artery bypass surgery Postoperative atrial fibrillation Syncope and collapse 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 Hyperlipidemia [...] Seizure SEIZURE SEIZURE DISORDER SEIZURE DISORDER seizure [facility] FU Solitary lung nodule ams Reason for Visit Scalp pain Scalp wound Nicotine dependence History of coronary artery bypass surgery Postoperative atrial fibrillation Syncope and collapse 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 Hyperlipidemia [...] Seizure SEIZURE SEIZURE DISORDER SEIZURE DISORDER seizure [facility] FU Solitary lung nodule ams Test [...] Complaint SEIZURE SEIZURE DISORDER SEIZURE DISORDER seizure [facility] FU Solitary lung nodule ams Test [...] [id number] 2:39pm Atherosclerotic heart diseas e of [place] coronary artery without angina pectoris October 12, [...] 2024 2:32pm Atherosclerotic heart diseas e of [place] coronary artery without angina pectoris October 12, 2024 2:39pm Hyperlipidemia October 12, 2024 2:39 pm Nicotine dependence October 12, 2024 2:39 pm Postoperative atrial fibrillation October [id number] 2:39pm Small lymphocytic lymphoma October 18 12:10pm Chief Complaint Admit Date Discuss PFT results July 17, 2024 2:3 2pm 6 M FU October 12, 2024 2:39 pm 3 MO - LABS October 18, 2024 12:1 0pm CA October 18, 2024 12:4 5pm dizzy November 10, 2024 12: 09am Reason for Visit Admit Date Solitary lung nodule July 17, 2024 2: 32pm COPD (chronic obstructive pulmonary dise ase) July 17, 2024 2:32pm Nicotine dependence, cigarettes, uncompl icated July 17, 2024 2:32pm Atherosclerotic heart diseas e of [place] coronary artery without angina pectoris October 12, 2024 2:39pm Hyperlipidemia October 12, 2024 2:39 pm Nicotine dependence October 12, 2024 2:39 pm Postoperative atrial fibrillation October 022024 2:39pm Small lymphocytic lymphoma October 18 12:10pm Chief Complaint Admit Date 6 M FU October 12, 2024 2:39 pm 3 MO - LABS October 18, 2024 12:1 0pm dizzy November 10, 2024 12: 09am 3 MO - LABS January 10, 2025 2: 11pm CA January 10, 2025 2: 45pm Reason for Visit Admit Date Atherosclerotic heart diseas e of [place] coronary artery without angina pectoris October 12, 2024 2:39pm Hyperlipidemia October 12, 2024 2:39 pm Nicotine dependence October 12, 2024 2:39 pm Postoperative atrial fibrillation October 022024 2:39pm Small lymphocytic lymphoma October 18 12:10pm Small lymphocytic lymphoma January 10, 2025 2:11pm Reason for Referral Specialty Diagnoses / Procedures Referred By Aries yan Referred To Contact CT IMAGING Diagnoses 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) Preoperative testing Disorder of arteries and arterioles (HCC) Procedures CTA CHEST (GATED) WO/W IVCON CT ANGIOGRAPHY CHEST W/CONTRAST/NONCONTRAST Liset Ocampo, DESIGN INTERN.FAST FOOD CREW MEMBER [address] [facility] [address] [place] [address] Ct Imaging Referral ID Status Reason Start Date Expiration Date Visits Requested Visits Authorized [id number] Additional Clinical Info Needed Auto-Generat ed Referral 07/22/2021 08/21/2022 1 1 Specialty Diagnoses / Procedures Referred By Aries yan Referred To Contact Urology Diagnoses Hemoglobinuria Procedures CONSULT TO UROLOGY OFFICE/OUTPATIENT NEW HIGH MDM 60-74 MINUTES Linda Winkler, DESIGN INTERN.FAST FOOD CREW MEMBER 1 [facility] [address] [place] [address] Referral ID Status Reason Start Date Expiration Date Visits Requested Visits Authorized [id number] Authorized PCP Requested Referral 09/14/2021 09/14/2022 1 [...] section and content) DATE CREATED AUTHOR 09/22/2017 [facility] DATE CREATED AUTHOR AUTHOR'S ORGANIZ ATION 09/26/2017 [facility] DATE CREATED AUTHOR AUTHOR'S ORGANIZ ATION 06/04/2021 [facility] DATE CREATED AUTHOR AUTHOR'S ORGANIZ ATION 07/25/2021 [facility] DATE CREATED AUTHOR AUTHOR'S ORGANIZ ATION 10/28/2021 [facility] DATE CREATED AUTHOR AUTHOR'S ORGANIZ ATION 11/09/2021 [facility] DATE CREATED AUTHOR AUTHOR'S ORGANIZ ATION 02/19/2022 [facility] DATE CREATED AUTHOR AUTHOR'S ORGANIZ ATION 02/25/2023 [facility] ([place]) DATE CREATED AUTHOR AUTHOR'S ORGANIZ ATION 04/23/2023 [facility] ([place]) DATE CREATED AUTHOR AUTHOR'S ORGANIZ ATION 01/28/2024 [facility] DATE CREATED AUTHOR AUTHOR'S ORGANIZ ATION 02/14/2024 [facility] DATE CREATED AUTHOR AUTHOR'S ORGANIZ ATION 12/17/2024 [facility] DATE CREATED AUTHOR AUTHOR'S ORGANIZ ATION 01/24/2025 [facility] Source Comments (unrecognize d section and content) In the event this informatio n is protected by the Federal Confidentiality of Alcohol and Drug Abuse Patient Records regulations: The Federal rules restrict any use of the information to criminally investigate or prosecute any alcohol or drug abuse patient.[facility] the event this information is protected by the Federal Confidentiality of Alcohol and Drug Abuse Patient Records regulations: The Federal rules restrict any use of the information to criminally investigate or prosecute any alcohol or drug abuse patient.[facility]ighIn the event this information is protected by the Federal Confidentiality of Alcohol and Drug Abuse Patient Records regulations: The Federal rules restrict any use of the information to criminally investigate or prosecute any alcohol or drug abuse patient.[facility]ighIn the event this information is protected by the Federal Confidentiality of Alcohol and Drug Abuse Patient Records regulations: The Federal rules restrict any use of the information to criminally investigate or prosecute any alcohol or drug abuse patient.[facility]ighIn the event this information is protected by the Federal Confidentiality of Alcohol and Drug Abuse Patient Records regulations: The Federal rules restrict any use of the information to criminally investigate or prosecute any alcohol or drug abuse patient.[facility]ighIn the event this information is protected by the Federal Confidentiality of Alcohol and Drug Abuse Patient Records regulations: The Federal rules restrict any use of the information to criminally investigate or prosecute any alcohol or drug abuse patient.[facility]ighIn the event this information is protected by the Federal Confidentiality of Alcohol and Drug Abuse Patient Records regulations: The Federal rules restrict any use of the information to criminally investigate or prosecute any alcohol or drug abuse patient.[facility]ighIn the event this information is protected by the Federal Confidentiality of Alcohol and Drug Abuse Patient Records regulations: The Federal rules restrict any use of the information to criminally investigate or prosecute any alcohol or drug abuse patient.[facility]ighIn the event this information is protected by the Federal Confidentiality of Alcohol and Drug Abuse Patient Records regulations: The Federal rules restrict any use of the information to criminally investigate or prosecute any alcohol or drug abuse patient.[facility]ighIn the event this information is protected by the Federal Confidentiality of Alcohol and Drug Abuse Patient Records regulations: The Federal rules restrict any use of the information to criminally investigate or prosecute any alcohol or drug abuse patient.[facility]ighIn the event this information is protected by the Federal Confidentiality of Alcohol and Drug Abuse Patient Records regulations: The Federal rules restrict any use of the information to criminally investigate or prosecute any alcohol or drug abuse patient.[facility]ighIn the event this information is protected by the Federal Confidentiality of Alcohol and Drug Abuse Patient Records regulations: The Federal rules restrict any use of the information to criminally investigate or prosecute any alcohol or drug abuse patient.[facility]ighIn the event this information is protected by the Federal Confidentiality of Alcohol and Drug Abuse Patient Records regulations: The Federal rules restrict any use of the information to criminally investigate or prosecute any alcohol or drug abuse patient.[facility]ighIn the event this information is protected by the Federal Confidentiality of Alcohol and Drug Abuse Patient Records regulations: The Federal rules restrict any use of the information to criminally investigate or prosecute any alcohol or drug abuse patient.[facility]ighIn the event this information is protected by the Federal Confidentiality of Alcohol and Drug Abuse Patient Records regulations: The Federal rules restrict any use of the information to criminally investigate or prosecute any alcohol or drug abuse patient.[facility]ighIn the event this information is protected by the Federal Confidentiality of Alcohol and Drug Abuse Patient Records regulations: The Federal rules restrict any use of the information to criminally investigate or prosecute any alcohol or drug abuse patient.[facility]ighIn the event this information is protected by the Federal Confidentiality of Alcohol and Drug Abuse Patient Records regulations: The Federal rules restrict any use of the information to criminally investigate or prosecute any alcohol or drug abuse patient.[facility]ighIn the event this information is protected by the Federal Confidentiality of Alcohol and Drug Abuse Patient Records regulations: The Federal rules restrict any use of the information to criminally investigate or prosecute any alcohol or drug abuse patient.[facility]ighIn the event this information is protected by the Federal Confidentiality of Alcohol and Drug Abuse Patient Records regulations: The Federal rules restrict any use of the information to criminally investigate or prosecute any alcohol or drug abuse patient.[facility]ighIn the event this information is protected by the Federal Confidentiality of Alcohol and Drug Abuse Patient Records regulations: The Federal rules restrict any use of the information to criminally investigate or prosecute any alcohol or drug abuse patient.[facility]ighIn the event this information is protected by the Federal Confidentiality of Alcohol and Drug Abuse Patient Records regulations: The Federal rules restrict any use of the information to criminally investigate or prosecute any alcohol or drug abuse patient.[facility]ighIn the event this information is protected by the Federal Confidentiality of Alcohol and Drug Abuse Patient Records regulations: The Federal rules restrict any use of the information to criminally investigate or prosecute any alcohol or drug abuse patient.[facility]ighIn the event this information is protected by the Federal Confidentiality of Alcohol and Drug Abuse Patient Records regulations: The Federal rules restrict any use of the information to criminally investigate or prosecute any alcohol or drug abuse patient.[facility]ighIn the event this information is protected by the Federal Confidentiality of Alcohol and Drug Abuse Patient Records regulations: The Federal rules restrict any use of the information to criminally investigate or prosecute any alcohol or drug abuse patient.[facility]ighIn the event this information is protected by the Federal Confidentiality of Alcohol and Drug Abuse Patient Records regulations: The Federal rules restrict any use of the information to criminally investigate or prosecute any alcohol or drug abuse patient.[facility]ighIn the event this information is protected by the Federal Confidentiality of Alcohol and Drug Abuse Patient Records regulations: The Federal rules restrict any use of the information to criminally investigate or prosecute any alcohol or drug abuse patient.[facility]ighIn the event this information is protected by the Federal Confidentiality of Alcohol and Drug Abuse Patient Records regulations: The Federal rules restrict any use of the information to criminally investigate or prosecute any alcohol or drug abuse patient.[facility]ighIn the event this information is protected by the Federal Confidentiality of Alcohol and Drug Abuse Patient Records regulations: The Federal rules restrict any use of the information to criminally investigate or prosecute any alcohol or drug abuse patient.[facility]ighIn the event this information is protected by the Federal Confidentiality of Alcohol and Drug Abuse Patient Records regulations: The Federal rules restrict any use of the information to criminally investigate or prosecute any alcohol or drug abuse patient.[facility]ighIn the event this information is protected by the Federal Confidentiality of Alcohol and Drug Abuse Patient Records regulations: The Federal rules restrict any use of the information to criminally investigate or prosecute any alcohol or drug abuse patient.[facility]ighIn the event this information is protected by the Federal Confidentiality of Alcohol and Drug Abuse Patient Records regulations: The Federal rules restrict any use of the information to criminally investigate or prosecute any alcohol or drug abuse patient.[facility]ighIn the event this information is protected by the Federal Confidentiality of Alcohol and Drug Abuse Patient Records regulations: The Federal rules restrict any use of the information to criminally investigate or prosecute any alcohol or drug abuse patient.[facility] Reason for Visit (unrecogniz ed section and content) Reason Comments Orders Reason Comments Schedule Surgery Reason Comments Spirometry Specialty Diagnoses / Procedures Referred By Contac t Referred To Contact [facility] Diagnoses Chronic obstructive pulmonary disease, unspecified COPD type (HCC) Procedures LUNG DIFFUSION CAPACITY (DLCO) DIFFUSING CAPACITY Forrest Lott, FADUMO.FAST FOOD CREW MEMBER [address] [place] [address] [facility] [place] [facility] [place] [phone] Referral ID Status Reason Start Date Expiration Date V isits Requested Visits Authorized [id number] Closed Auto-Generate d Referral 06/25/2021 07/25/2022 1 1 Specialty Diagnoses / Procedures Referred By Contac t Referred To Contact [facility] Diagnoses Chronic obstructive pulmonary disease, unspecified COPD type (HCC) Procedures SPIROMETRY BASELINE ONLY SPMTRY W/VC EXPIRATORY ABIMAEL W/WO MXML VOL VNTJ Forrest Lott, DESIGN INTERN.FAST FOOD CREW MEMBER [address] [place] [address] Respiratory [place] [employer] [place] [phone] Referral ID Status Reason Start Date Expiration Date V isits Requested Visits Authorized [id number] Closed Auto-Generate d Referral 06/25/2021 07/25/2022 1 1 Specialty Diagnoses / Procedures Referred By Contac t Referred To Contact CT IMAGING Diagnoses Disorder of arteries and arterioles (HCC) Procedures CTA CHEST (NONGATED) WO/W IVCON CT ANGIOGRAPHY CHEST W/CONTRAST/NONCONTRAST Forrest Lott, FADUMO.FAST FOOD CREW MEMBER [address] [place] [address] Ct Imaging Referral ID Status Reason Start Date Expiration Date Visits Requested Visits Authorized [id number] Authorized Auto-Generat ed Referral 06/25/2021 07/25/2022 1 1 Reason Onset Date Comments Orders 07/22/2021 Specialty Diagnoses / Procedures Referred By Contac t Referred To Contact CT IMAGING Diagnoses 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) Preoperative testing Disorder of arteries and arterioles (HCC) Procedures CTA CHEST (GATED) WO/W IVCON CT ANGIOGRAPHY CHEST W/CONTRAST/NONCONTRAST Liset Ocampo, DESIGN INTERN.FAST FOOD CREW MEMBER [address] [place] [address] Ct Imaging Referral ID Status Reason Start Date Expiration Date V isits Requested Visits Authorized [id number] Closed Auto-Generate d Referral 07/22/2021 09/21/2021 1 [...] t Referred To Contact [facility] Home Care [address] [place] [id number] Referral ID Status Reason Start Date Expiration Date Visits Re quested Visits Authorized [id number] 1 1 Reason Comments Home Care pt question Reason Comments Home Care pt request Reason Comments Post Op 09/21/21 CABG Reason [facility] Reason Comments Home Care notification of home health nursing discharge Reason Comments Seizures Reason Comments Med Refill Care Teams (unrecognized sec tion and content) Team Status: Active Member Role Status Dates Dr. Parish Graff DO Primary Care Provider Active Team Status: Inactive Member Role Status Dates Dr. Radha Quintero MD Primary Care Provider, Referri Provider Active Dr. Alex Mejia DO Attending [...] Provider, Referri ng Provider Active Tina Jefferson WINDOW/DISTRIBUTION CLERK, WINDOW/DISTRIBUTION CLERK-C Attending Provider Active Team Status: Inactive Member [...] Provider, Referring Provider Active Dr. Parish Graff DO Primary Care Provider Active Team Status: Inactive Member Role Status Dates Dr. Parish Graff DO Primary Care Provider Active Tina Jefferson WINDOW/DISTRIBUTION CLERK, WINDOW/DISTRIBUTION CLERK-C Attending Provider, Referrin g Provider Active Economics Consultant Relationship Specialty Start Date End Date Clement Swanson MD PCP - General Family Practice 03/12/13 Sophia [place] (Pa) [address] [place] [address] Pulmonary and Critical Care Medicine 06/25/21 Betty Parker, FAST FOOD CREW MEMBER [address] [place] [address] Family Practice 06/25/21 Economics Consultant Relationship Specialty Start Date End Date Clement Swanson MD PCP - General Family Practice 03/12/13 Sophia [place] ([place]) [address] [facility] [address] Pulmonary and Critical Care Medicine 06/25/21 Betty Parker, FAST FOOD CREW MEMBER [address] [place] [address] Family Practice 06/25/21 Economics Consultant Relationship Specialty Start Date End Date Clement Swanson MD PCP - General Family Practice 03/12/13 Sophia [place] ([place]) [address] [facility] [address] Pulmonary and Critical Care Medicine 06/25/21 Betty Parker, FAST FOOD CREW MEMBER [address] [place] [address] Family Practice 06/25/21 Economics Consultant Relationship Specialty Start Date End Date Clement Swanson MD PCP - General Family Practice 03/12/13 Sophia Madison ([place]) [address] [facility] [address] Pulmonary and Critical Care Medicine 06/25/21 Betty Parker, FAST FOOD CREW MEMBER [address] [place] [address] [facility] Practice 06/25/21 Economics Consultant Relationship Specialty Start Date End Date Clement Swanson MD PCP - General Family Practice 03/12/13 Sophia Madison (Pa) [address] [place] [place] [address] Pulmonary and Critical Care Medicine 06/25/21 Betty Parker FAST FOOD CREW MEMBER [address] [place] [address] [facility] 06/25/21 Economics Consultant Relationship Specialty Start Date End Date Clement Swanson MD PCP - General [facility] Practice 03/12/13 Sophia Madison (Pa) [address] [facility] [place] [address] Pulmonary and Critical Care Medicine 06/25/21 Betty Parker, FAST FOOD CREW MEMBER [address] [place] [address] [facility] Practice 06/25/21 Economics Consultant Relationship Specialty Start Date End Date Clement Swanson MD PCP - General [facility] Practice 03/12/13 Sophia Madison (Pa) [address] [facility] [place] [address] Pulmonary and Critical Care Medicine 06/25/21 Betty Parker, FAST FOOD CREW MEMBER [address] [place] [address] [facility] Practice 06/25/21 Economics Consultant Relationship Specialty Start Date End Date Clement Swanson MD PCP - General [facility] Practice 03/12/13 Sophia Madison (Pa) [address] [facility] [address] Pulmonary and Critical Care Medicine 06/25/21 Betty Parker, FAST FOOD CREW MEMBER [address] [place] [address] [facility] 06/25/21 Economics Consultant Relationship Specialty Start Date End Date Clement Swanson MD [facility] Practice 03/12/13 Sophia Madison (Pa) [address] [facility] [address] Pulmonary and Critical Care Medicine 06/25/21 Betty Parker, FAST FOOD CREW MEMBER [address] [place] [address] [facility] 06/25/21 Economics Consultant Relationship Specialty Start Date End Date Clement Swanson MD PCP - General [facility] Practice 03/12/13 Sophia Madison (Pa) [address] [facility] [place] [address] Pulmonary and Critical Care Medicine 06/25/21 Betty Parker, FAST FOOD CREW MEMBER [address] [place] [address] [facility] 06/25/21 Economics Consultant Relationship Specialty Start Date End Date Clement Swanson MD PCP - General Family Practice 03/12/13 Sophia Madison (Pa) [address] [facility] [place] [address] Pulmonary and Critical Care Medicine 06/25/21 Betty Parker, FAST FOOD CREW MEMBER [address] [place] [address] [facility] Practice 06/25/21 Economics Consultant Relationship Specialty Start Date End Date Clement Swanson MD PCP - General [facility] Practice 03/12/13 Sophia Madison (Pa) [address] [facility] [place] [address] Pulmonary and Critical Care Medicine 06/25/21 Betty Parker, FAST FOOD CREW MEMBER [address] [place] [address] [facility] 06/25/21 Economics Consultant Relationship Specialty Start Date End Date Clement Swanson MD [address] [place] [address] [place] [address] PCP - [facility] Practice 03/12/13 Sophia Madison (Pa) [address] [facility] [place] [address] Pulmonary and Critical Care Medicine 06/25/21 Betty Parker, DESIGN INTERN.FAST FOOD CREW MEMBER [address] [place] [address] [facility] 06/25/21 Tami Luna PA-C 1 [facility] [place] [address] Referring Cardiothoracic Surgery 09/26/21 Tami Luna PA-C [address] [place] [address] Home Care Physician Cardiothoracic Surgery 09/26/21 Economics Consultant Relationship Specialty Start Date End Date Clement Swanson MD [address] [place] [address] PCP - General Family Practice 03/12/13 Sophia Madison (Pa) [address] [facility] [address] Pulmonary and Critical Care Medicine 06/25/21 Betty Parker APRN.FAST FOOD CREW MEMBER [address] [place] [address] Family Practice 06/25/21 Tami Luna PA-C [address] [place] [address] Referring Cardiothoracic Surgery 09/26/21 Tami Luna PA-C [address] [place] [address] Home Care Physician Cardiothoracic Surgery 09/26/21 Sudheer Willis, RN [address] [place], [place] [id number] Product Test Specialist Post Acute Care 09/29/21 Economics Consultant Relationship Specialty Start Date End Date Clement Swanson MD [address] [place] [address] PCP - General Family Practice 03/12/13 Sophia Madison (Pa) [address] [facility] [address] Pulmonary and Critical Care Medicine 06/25/21 Betty Parker APRN.FAST FOOD CREW MEMBER [address] [facility] [place] [address] [facility] 06/25/21 Tami Luna PA-C [address] [place] [address] Referring Cardiothoracic Surgery 09/26/21 Tami Luna PA-C [address] [place] [address] Home Care Physician Cardiothoracic Surgery 09/26/21 Sudheer Willis, MASTER [address] [place], [place] [id number] Product Test Specialist Post Acute Care 09/29/21 Economics Consultant Relationship Specialty Start Date End Date Clement Swanson MD [address] [facility] [place], [place] [address] PCP - [facility] 03/12/13 Sophia Madison (Pa) [address] [place] [address] Pulmonary and Critical Care Medicine 06/25/21 Betty Parker, DESIGN INTERN.FAST FOOD CREW MEMBER [address] [place] [address] [facility] 06/25/21 Tami Luna PA-C [address] [place] [address] Referring Cardiothoracic Surgery 09/26/21 Tami Luna PA-C [address] [place] [address] Home Care Physician Cardiothoracic Surgery 09/26/21 Sudheer Willis, MASTER [address] [place], [place] [id number] Product Test Specialist Post Acute Care 09/29/21 Economics Consultant Relationship Specialty Start Date End Date Clement Swanson MD [address] [facility] [place], [place] [id number] PCP - General [facility] Practice 03/12/13 Sophia Madison (Pa) [address] [place] [address] Pulmonary and Critical Care Medicine 06/25/21 Betty Parker, DESIGN INTERN.FAST FOOD CREW MEMBER [address] [place] [address] [facility] 06/25/21 Tami Luna PA-C [address] [place], [place] [id number] Referring Cardiothoracic Surgery 09/26/21 Tami Luna PA-C [address] [place], [place] [id number] Home Care Physician Cardiothoracic Surgery 09/26/21 Sudheer Willis RN [address] [place], [place] [id number] Product Test Specialist Post Acute Care 09/29/21 Economics Consultant Relationship Specialty Start Date End Date Clement Swanson MD [address], [place] [id number] PCP - [facility] 03/12/13 Sophia Madison (Pa) [address] [place] [address] Pulmonary and Critical Care Medicine 06/25/21 Betty Parker, DESIGN INTERN.FAST FOOD CREW MEMBER [address] [place] [address] [facility] 06/25/21 Tami Luna PA-C [address] [place] [address] Referring Cardiothoracic Surgery 09/26/21 Tami Luna PA-C [address] [place], [place] [id number] Home Care Physician Cardiothoracic Surgery 09/26/21 Sudheer Willis RN [address] [place], [place] [id number] Product Test Specialist Post Acute Care 09/29/21 Economics Consultant Relationship Specialty Start Date End Date Clement Swanson MD [address], [place] [address]471 PCP - General Family Practice 03/12/13 Sophia Madison (Pa) [address] [place] [address] Pulmonary and Critical Care Medicine 06/25/21 Betty Parker, DESIGN INTERN.FAST FOOD CREW MEMBER [address] [place] [address] Family Practice 06/25/21 Tami Luna PA-C [address] [place] [address] Referring Cardiothoracic Surgery 09/26/21 Tami Luna PA-C [address] [place] [address] Home Care Physician Cardiothoracic Surgery 09/26/21 Sudheer Willis RN [address] [place], [place] [id number] Product Test Specialist Post Acute Care 09/29/21 Economics Consultant Relationship Specialty Start Date End Date Clement Swanson MD [address], [place] [address]471 PCP - General Family Practice 03/12/13 Sophia Madison (Pa) [address] [place] [address] Pulmonary and Critical Care Medicine 06/25/21 Betty Parker DESIGN INTERN.FAST FOOD CREW MEMBER [address] [place] [address] [facility] Practice 06/25/21 Tami Luna PA-C [address] [place] [address] Referring Cardiothoracic Surgery 09/26/21 Tami Luna PA-C [address] [place], [place] [id number] Home Care Physician Cardiothoracic Surgery 09/26/21 Sudheer Willis RN [address] [place], [place] [id number] Product Test Specialist Post Acute Care 09/29/21 Economics Consultant Relationship Specialty Start Date End Date Clement Swanson MD [address] [place], [place] [address]37941 PCP - General [facility] Practice 03/12/13 Sophia Madison (Pa) [address] [place] [address] Pulmonary and Critical Care Medicine 06/25/21 Betty Parkre, DESIGN INTERN.FAST FOOD CREW MEMBER [address] [place] [address] [facility] 06/25/21 Tami Luna PA-C [address] [place] [address] Referring Cardiothoracic Surgery 09/26/21 Tami Luna PA-C [address] [place], [place] [id number] Home Care Physician Cardiothoracic Surgery 09/26/21 Sudheer Willis RN [address] [place] [address] Product Test Specialist Post Acute Care 09/29/21 Sophia Madison (Pa) [address] [place] [address] Pulmonary and Critical Care Medicine 10/16/21 Economics Consultant Relationship Specialty Start Date End Date Clement Swanson MD [address] [place] [address] PCP - General Family Practice 03/12/13 Sophia Madison (Pa) [address] [facility] [address] Pulmonary and Critical Care Medicine 06/25/21 Betty Parker, DESIGN INTERN.FAST FOOD CREW MEMBER [address] [facility] [place] [address] Family Practice 06/25/21 Tami Luna PA-C [address] [place] [address] Referring Cardiothoracic Surgery 09/26/21 Sudheer Willis, RN [address] [place], [place] [id number] Product Test Specialist Post Acute Care 09/29/21 Sophia Madison (Pa) [address] [place] [address] Pulmonary and Critical Care Medicine 10/16/21 Linda Winkler, DESIGN INTERN.FAST FOOD CREW MEMBER 1 [facility] [address] [place] [address] Home Care Physician Cardiac Surg 10/21/21 Economics Consultant Relationship Specialty Start Date End Date Clement Swanson MD [address] [place] [address] PCP - General Family Practice 03/12/13 Sophia Madison (Pa) [address] [place] [address] Pulmonary and Critical Care Medicine 06/25/21 Betty Parker, DESIGN INTERN.FAST FOOD CREW MEMBER [address] [place], [place] 7960[address] [facility] Practice 06/25/21 Tami Luna PA-C [address] [place], [place] [id number] Referring Cardiothoracic Surgery 09/26/21 Sudheer Willis, MASTER [address] [place], [place] [id number] Product Test Specialist Post Acute Care 09/29/21 Sophia Madison (Pa) [address] [place] [phone] Pulmonary and Critical Care Medicine 10/16/21 Linda Winkler, DESIGN INTERN.FAST FOOD CREW MEMBER 1 [facility] [address] [place], [place] [id number] [phone] Home Care Physician Cardiac Surg 10/21/21 Economics Consultant Relationship Specialty Start Date End Date Clement Swanson MD [address], [place] [id number] PCP - General [facility] Practice 03/12/13 Sophia Madison (Pa) [address] [place] [address] Pulmonary and Critical Care Medicine 06/25/21 Betty Parker, DESIGN INTERN.FAST FOOD CREW MEMBER [address] [facility] [place] [address] [facility] 06/25/21 Tami Luna PA-C [address] [place], [place] [phone] Referring Cardiothoracic Surgery 09/26/21 Sophia Madison (Pa) [address] [place] [address] Pulmonary and Critical Care Medicine 10/16/21 Linda Winkler, DESIGN INTERN.FAST FOOD CREW MEMBER [facility] [address] [place] [address] Home Care Physician Cardiac Surg 10/21/21 Economics Consultant Relationship Specialty Start Date End Date Radha Quintero MD [address] [place] [address] PCP - General Internal Medicine 11/06/21 Sophia Madison (Pa) [address] [place] [address] Pulmonary and Critical Care Medicine 06/25/21 Betty Parker, DESIGN INTERN.FAST FOOD CREW MEMBER [address] [place] [address] Family Practice 06/25/21 Tami Luna PA-C [address] [place] [address] Referring Cardiothoracic Surgery 09/26/21 Sophia Madison (Pa) [address] [place] [address] Pulmonary and Critical Care Medicine 10/16/21 Linda Winkler, DESIGN INTERN.FAST FOOD CREW MEMBER [address] [facility] [address] [place] [address] Home Care Physician Cardiac Surg 10/21/21 Radha Quintero MD [address] [place] [address] Internal Medicine 11/06/21 Economics Consultant Relationship Specialty Start Date End Date Radha Quintero MD [address] [facility] [place] [address] PCP - General Internal Medicine 11/06/21 Sophia Madison (Pa) [address] [place] [address] Pulmonary and Critical Care Medicine 06/25/21 Betty Parker, DESIGN INTERN.FAST FOOD CREW MEMBER [address] [address] [facility] 06/25/21 Tami Luna PA-C [address] [place], [place] [phone] Referring Cardiothoracic Surgery 09/26/21 Sophia Madison (Pa) [address] [place] [address] Pulmonary and Critical Care Medicine 10/16/21 Linda Winkler, DESIGN INTERN.FAST FOOD CREW MEMBER 1 [facility] [address] [place], [place] [id number] [phone] Home Care Physician Cardiac Surg 10/21/21 Radha Quintero MD [address] [facility] [place] [address] Internal Medicine 11/06/21 Team Status: Active Member [...] Provider, Referri ng Provider Active Claire Salinas WINDOW/DISTRIBUTION CLERK, WINDOW/DISTRIBUTION CLERK-C Attending Provider Active Team Status: Active Member [...] Quintero MD Referring Provider Active Tina Jefferson WINDOW/DISTRIBUTION CLERK, WINDOW/DISTRIBUTION CLERK-C Attending Provider Active Dr. Parish Graff DO Primary Care Provider Active Team Status: Inactive Member Role Status Dates Dr. Parish Graff DO Primary Care Provider Active Bryan Gomez MD Attending Provider, Emergency Provid er Active Team Status: Inactive Member Role Status Dates Dr. Parish Graff DO Primary Care Provider Active Dr. Thai Nice DO Emergency Provider Active Economics Consultant Relationship Specialty Start Date End Date Radha Quintero MD [address] [place] [phone] PCP - General Family Medicine 11/24/22 Economics Consultant Relationship Specialty Start Date End Date Radha Quintero MD [address] [place] [phone] PCP - General Family Medicine 11/24/22 Economics Consultant Relationship Specialty Start Date End Date Radha Quintero MD [address] [place] [phone] PCP - General Family Medicine 11/24/22 Economics Consultant Relationship Specialty Start Date End Date Radha Quintero MD [address] [place] [phone] PCP - General Family Medicine 11/24/22 Team Status: Active Member Role/Relationship Status Dates Dr. Parish Graff DO Primary Care Provider Active Team Status: Inactive Member Role/Relationship Status Dates Dr. Parish Graff DO Primary Care Provider Active Start: July 10, 2024 End: July 10, 2024 Dr. Parish Graff DO Referring Provider Active Start: July 10, 2024 End: July 10, 2024 Aide Mcdonnell WINDOW/DISTRIBUTION CLERK, WINDOW/DISTRIBUTION CLERK-C Attending Provider Active Start: July 10, 2024 [...] July 17, 2024 End: July 17, 2024 MEGAN YoussefC Attending Provider Active Start: July 17, 2024 [...] July 17, 2024 End: July 17, 2024 MEGAN YoussefC Attending Provider Active Start: July 17, 2024 [...] 2024 End: October 18, 2024 Aide Mcdonnell NP WINDOW/DISTRIBUTION CLERK-C Attending Provider Active Start: October 18, 2024 End: October 18, 2024 Team Status: Active Member Role/Relationship Status Dates Dr. Parish Graff DO Primary Care Provider Active Start: October 18, 2024 Dr. Rita Mathew MD Attending Provider Active Start: October 18, 2024 Dr. Rita Mathew MD Referring Provider Active Start: October 18, 2024 Team Status: Inactive Member Role/Relationship Status Dates Dr. Parish Graff DO Primary Care Provider Active Start: July 17, 2024 End: July 17, 2024 Dr. Parish Graff DO Referring Provider Active Start: July 17, 2024 End: July 17, 2024 Santa Hawthorne NP-C Attending Provider Active Start: July 17, 2024 [...] 2024 End: October 18, 2024 Aide Mcdonnell NP, WINDOW/DISTRIBUTION CLERK-C Attending Provider Active Start: October 18, 2024 End: October 18, 2024 Team Status: Active Member Role/Relationship Status Dates Dr. Parish Graff DO Primary Care Provider Active Start: October 18, 2024 Dr. Rita Mathew MD Attending Provider Active Start: October 18, 2024 Dr. Rita Mathew MD Referring Provider Active Start: October 18, 2024 Team Status: Inactive Member Role/Relationship Status Dates Dr. Parish Graff DO Primary Care Provider Active Start: November 10, 2024 End: November 10, 2024 Dr. Arben Orourke DO Emergency Provider Active Start: November 10, 2024 End: November 10, 2024 Team Status: Active Member Role/Relationship Status Dates Dr. Parish Graff DO Primary care physician Active Team Status: Inactive Member Role/Relationship Status Dates Dr. Parish Graff DO Primary care physician Active Start: October 12, 2024 End: October 12, 2024 Dr. Parish Graff DO Referring Provider Active Start: October 12, 2024 End: October 12, 2024 DEYSI Davison Attending physician Active S tart: October 12, 2024 End: October 12, 2024 Team Status: Inactive Member Role/Relationship Status Dates Dr. Parish Graff DO Primary care physician Active Start: October 18, 2024 End: October 18, 2024 Dr. Parish Graff DO Referring Provider Active Start: October 18, 2024 End: October 18, 2024 Aide Mcdonnell WINDOW/DISTRIBUTION CLERK, WINDOW/DISTRIBUTION CLERK-C Attending physician Active Start: October 18, 2024 End: October 18, 2024 Team Status: Inactive Member Role/Relationship Status Dates Dr. Parish Graff DO Primary care physician Active Start: November 10, 2024 End: November 10, 2024 Dr. Arben Orourke DO Attending physician Active Start: November 10, 2024 End: November 10, 2024 Dr. Arben Orourke DO Emergency Department Physician A ctive Start: November 10, 2024 End: November 10, 2024 Team Status: Inactive Member Role/Relationship Status Dates Dr. Parish Graff DO Primary care physician Active Start: January 10, 2025 End: January 10, 2025 Dr. Parish Graff DO Referring Provider Active Start: January 10, 2025 End: January 10, 2025 Dr. Rita Mathew MD Attending physician Active Start: January 10, 2025 End: January 10, 2025 Team Status: Active Member Role/Relationship Status Dates Dr. Parish Graff DO Primary care physician Active Start: January 10, 2025 Dr. Rita Mathew MD Attending physician Active Start: January 10, 2025 Dr. Rita Mathew MD Referring Provider Active Start: January 10, 2025 Goals (unrecognized section and content) Goals may [...] BE BASED ON THE PRIMARY CLINICAL RECORDS. [facility] [employer] [facility]. provides no warranty or guarantee of the accuracy or completeness of information in this document.
== END | disposition home or self-care (01) ==
PROVIDERS: PCP Student in an Organized Health Care Education/Training Program; Referring Provider Nurse Practitioner Family; Visit Provider Nurse Practitioner Family
DX: R91.1 Solitary pulmonary nodule (principal)
CPT/HCPCS: 71250